=== PATIENT | female | born 1980 | race Caucasian/White ===

== ENCOUNTER 2016-08-15 00:07 | Emergency (ER) | payer MEDICARE, MEDICAID ==
[~2016-08-15 00:07] MED LIST: ABIL10TA PO; ACET80TA PO; AMBI5TAB PO; AUGM875T27 PO; BENT10CA PO; BUTA1CAP PO; CARA1TAB2 PO; CIPR500S PO; CIPR500T89 PO; DULO1CAP2 PO; DULO1CAP3 PO; FENTANYL PATCH; FIOR1CAP PO; FLAG500T PO; FLEX10TA2 PO; FOLI1TAB2 PO; HYDR100C PO; LOVE1INJ SC; MAPA325T2 PO; METO10TA2 PO; METO5TAB2 PO; MORP100T40 PO; MORP15TA2 PO; MORP2SY IV; MORP30SU RE; MORP30TA34 PO; MORP30TA4 PO; MS C100T PO; MULT1TAB8 PO; NEUR100C OR; ONDA1TAB15 PO; ONDA4INJ48 IV; ONDA4TAB6 PO; PANT40TA2 PO; PEG1POW PO; PERC5TAB6 PO; PRAMIPEXOLE PO; PREV15CA PO; PROM-190 PO; PROM25AM IV; PROM50TA2 PO; PROT1TAB2 PO; REGL5TAB2 PO; REQU0.5T PO; ROPI0.25 PO; SERT-138 PO; SERT-141 PO; SUCR1SS PO; SYNT175T PO; TIZA4CAP3 PO; TRAZ50TA4 PO; VITA-193 PO; VITAD1000T PO; VITMTA PO; XANA1TAB2 PO; ZANA4TAB PO; ZOFR20TA PO; ZOFR8TAB PO; ZOLO50TA PO; ZOLP10TA2 PO; [UNRECOGNIZED DRUG - CODE] PO; [UNRECOGNIZED DRUG - CODE] PO; [UNRECOGNIZED DRUG - CODE] PO; [UNRECOGNIZED DRUG - OTHER] PO
[2016-08-15] MEDS ORDERED: IPRATROPIUM 0.5MG/ALBUTEROL 2.5MG INH SOL UD 3ML (DUONEB)(J7620) As Ordered ONE (01:13)
[2016-08-15 03:06] LABS: BASO % 0.7 % (0.0-1.0); EOS # 0.1 K/mm3 (0.0-0.50); EOS % 1.9 % (0.0-3.0); LARGE UNSTAINED CELL # 0.1 K/mm3 (0.0-0.4); LARGE UNSTAINED CELL % 2.2 % (0.0-4.0); LYMPH # 2.4 K/mm3 (1.5-4.5); LYMPH % 39.1 % (24.0-44.0); MEAN CORPUSCULAR HGB CONC 32.2 g/dl (32.0-36.5); MEAN CORPUSCULAR VOLUME 83.7 fl (80.0-96.0); MONO # 0.3 K/mm3 (0.0-0.8); MONO % 4.6 % (0.0-5.0); NEUTROPHILS # 3.2 K/mm3 (1.8-7.7); NEUTROPHILS % 51.4 % (36.0-66.0); PLATELET COUNT, AUTOMATED 350 k/mm3 (150-450); RED CELL DISTRIBUTION WIDTH 15.1 % (11.5-14.5); WHITE BLOOD COUNT 6.1 K/mm3 (4.0-10.0)
[2016-08-15 03:22] LABS: ANION GAP 11 MEQ/L (8-16); BLOOD UREA NITROGEN 15 MG/DL (7-18); CALCIUM LEVEL 8.5 MG/DL (8.5-10.1); CARBON DIOXIDE LEVEL 25 MEQ/L (21-32); CHLORIDE LEVEL 107 MEQ/L (98-107); CREATININE FOR GFR 0.73 MG/DL (0.55-1.02); GLOMERULAR FILTRATION RATE > 60.0 (>60); GLUCOSE, FASTING 96 MG/DL (70-105); POTASSIUM SERUM 3.7 MEQ/L (3.5-5.1); SODIUM LEVEL 143 MEQ/L (136-145)
[2016-08-15] MEDS ORDERED: KETOROLAC 30 MG/ML VIAL (J1885) As Ordered ONE (04:32)
[2016-08-15] MEDS ORDERED: predniSONE 20 MG TAB As Ordered ONE (05:18)
[2016-08-15] MEDS ORDERED: ALBUTEROL 90 MCG/ACT 8GM HFA INHALER As Ordered ONE (05:18)
--- NOTE | 2016-08-15 05:45 | EDDOCDS ---
Physician Documentation [facility] Name: Ada Ayoub Age: 36 yrs Sex: Female : 1980 Arrival Date: 08/15/2016 Time: 00:07 Bed 8 Private MD: Disposition: 08/15/16 05:11 Discharged to Home/Self Care. Impression: Acute bronchitis. - Condition is Stable. - Discharge Instructions: Acute Bronchitis, Viral Infections. - Prescriptions for Zithromax Z- Sav 250 mg Oral Tablet - take 1 tablet by ORAL route as directed for 5 days Day 1- take two tablets once. Day 2, 3, 4 , 5 take one tablet once daily.; 6 tablet. Prednisone 20 mg Oral Tablet - take 2 tablet by ORAL route once daily for 5 days; 10 tablet. benzonatate 200 mg Oral Capsule - take 1 capsule by ORAL route 3 times per day As needed; 30 capsule. - Medication Reconciliation, Local Pharmacy Hours form. - Follow up: Private Physician; When: 4 - 5 days; Reason: Continuance of care. - Problem is an acute exacerbation. - Symptoms have improved. Historical: - Allergies: Maxalt ("made me go unconscious"); Amitriptyline; Bees; - Home Meds: 1. Carafate 1 gram Oral tab as needed 2. duloxetine 60 mg Oral cpDR 1 cap once daily - PMHx: Anxiety; Chronic Back pain; Depression; PTSD; - PSHx: recent stomach surgery to repair hole from gastric bypass surgery; Gastric Bypass; Appendectomy; Cholecystectomy; back surgery x2; left knee surgery; ; Hysterectomy; - Social history: Smoking status: Patient states was never smoker of tobacco. No barriers to communication noted, The patient speaks fluent French. - Family history: Not pertinent. - : The pt / caregiver states he / she is not on anticoagulants. Home medication list is obtained from the patient. - Exposure Risk Screening:: None identified. PSYCHIATRIST: 08/15 00:23 3, Living 2, LMP N/A - Hysterectomy mcp Vital Signs: 00:23 BP 130 / 81; Pulse 140; Resp 28; Temp 98.9(O); Pulse Ox 100% on R/A; Weight 70.31 kg / mcp 155.01 lbs; Height 5 ft. 8 in. (172.72 cm); Pain 8/10; 00:39 BP 107 / 72 (auto/); ko2 00:40 Pulse 100 MON; Pulse Ox 100% ; ko2 00:48 Pulse 94 MON; Pulse Ox 97% ; ko2 00:49 BP 104 / 72 (auto/); ko2 00:59 BP 114 / 81 (auto/); ko2 00:59 Pulse 102 MON; Pulse Ox 97% ; ko2 05:25 BP 122 / 62; Pulse 88; Resp 20; Temp 99.0(O); Pulse Ox 98% on R/A; Pain 0/10; cp1 00:23 Body Mass Index 23.57 (70.31 kg, 172.72 cm) mcp MDM: 00:31 ECG WITH READING ER PHYS+CARDIAG ordered. EDMS 00:47 -Blood Culture (Adults Only), peripheral from different site, or from device/port/PICC mm11 etc. if present ordered. 00:47 Potato Chip Sacking Machine Operator/Pulse Ox/q 15 min VS ordered. mm11 00:47 Oxygen at 4L/Min NC or Home dosage ordered. mm11 00:47 Rhythm Strip to chart ordered. mm11 00:47 Albuterol-Ipratropium 3 ml Inhalation once ordered. mm11 00:47 Call Respiratory ordered. mm11 00:48 Call Respiratory complete. ko2 00:48 Basic Metabolic Profile Ordered. EDMS 00:48 CBC with Diff Ordered. EDMS 00:48 D-Dimer Quant Ordered. EDMS 00:48 -Blood Culture Ordered. EDMS 00:48 -Influenza A&B Rapid Antigen - Nose Ordered. EDMS 00:48 Chest, 2 View (pa\\E\\lat) Ordered. EDMS 00:58 -Blood Culture (Adults Only), peripheral from different site, or from device/port/PICC ml3 etc. if present complete. 00:59 BLOOD CULTURES Ordered. EDMS 01:10 Financial registration complete. slh 02:18 -Influenza A&B Rapid Antigen - Nose Reviewed. mm11 03:31 CBC with Diff Reviewed. mm11 03:31 Basic Metabolic Profile Reviewed. mm11 03:31 D-Dimer Quant Reviewed. mm11 03:58 [facility] [place] Payment Agreement was scanned into [employer] and attached to record. slh 04:30 ketorolac 60 mg IM once ordered. mm11 05:10 Ventolin Inhaler 2 puffs Inhalation once; q 4 hours prn sob, dispense home ordered. mm11 05:10 MDI teaching with Spacer ordered. mm11 05:10 predniSONE 40 mg PO once; administer with food or milk ordered. mm11 Administered Medications: 01:14 Drug: Albuterol-Ipratropium 3 ml [ipratropium-albuterol 0.5 mg-3 mg(2.5 mg base)/3 mL bb3 nebulization soln (3 mL)] Route: Inhalation; 01:29 Follow up: increased throughout. Lung sounds clear/diminished. Pt had scant amount of bb3 thick dark yellow green sputum spontaneously expectorated during neb tx. Pt denies SOB past baseline at rest. 04:31 CANCELLED (unable to obtain IV): ketorolac 30 mg IVP once ko2 04:31 CANCELLED (unable to obtain IV): NS 0.9% 1000 ml IV at bolus once ko2 04:38 Drug: ketorolac 60 mg [ketorolac 30 mg/mL (1 mL) injection solution (2 mL)] Route: IM; ko2 Site: right gluteus; 05:25 Drug: Ventolin 2 puffs [Ventolin HFA 90 mcg/actuation aerosol inhaler (2 puffs)] Route: cp1 Inhalation; 05:31 Follow up: pt understands and correctly demonstrates proper use of MDI/spacer from bb3 start to finish without error 05:25 Drug: predniSONE 40 mg [prednisone 20 mg tablet (2 tabs)] Route: PO; cp1 Signatures: Dispatcher [employer] Effie Whaley RN RN mcp Lopresti, Mary-Elizabeth, Boiler Operator Unit ml3 Ba Tilley DO DO mm11 Rachel Martinez,SURGERY CENTER ADMINISTRATOR SURGERY CENTER ADMINISTRATOR cp1 Chelsey Fleming RN RN ko2 Kim Gandara Brad bb3 The chart was reviewed and I authenticate all verbal orders and agree with the evaluation and treatment provided.Corrections: (The following items were deleted from the chart) 04:31 00:47 IV Saline Lock ordered. mm11 ko2 04:31 00:47 ketorolac 30 mg IVP once ordered. mm11 ko2 04:31 00:47 NS 0.9% 1000 ml IV at bolus once ordered. mm11 ko2 Attachments: 03:58 [facility] Payment Agreement [facility] MTDD
--- NOTE | 2016-08-15 05:45 | EDDOCDS ---
Nurse's Notes [facility] Name: Ada Ayoub Age: 36 yrs Sex: Female : 1980 Arrival Date: 08/15/2016 Time: 00:07 Bed 8 Private MD: Diagnosis: Acute bronchitis Presentation: 08/15 00:18 Presenting complaint: Patient states: Sick for over a week--started with cold [facility] symptoms--sinus issues, lungs getting worse, short of breath at rest. Also had stomach surgery in June and has hard spot on side of incision. Also has chest pain and pressure. Adult Sepsis Screening: The patient does not have new or worsening altered mentation. Patient has a respiratory rate of greater than or equal to 22 (1 point). Systolic blood pressure is greater than 100. Patient has a qSOFA score of 0- Negative Sepsis Screen. Suicide/Homicide risk assessment- the patient denies having any suicidal and/or homicidal ideations and does not present with any other emotional, behavioral or mental health complaints. Status: Patient is not a immigration services officer or dependent. Transition of care: patient was not received from another setting of care. 00:18 Acuity: H[place]IGH Level 3 [facility] 00:18 Method Of Arrival: Walkin/Carried/Asstd [facility] Triage Assessment: 00:24 General: Appears ill, uncomfortable, Behavior is cooperative. Pain: Location: chest mcp Pain currently is 8 out of 10 on a pain scale. HIV screening NA for this visit Offered previously. Neurological: No deficits noted. Respiratory: Onset: The symptoms/episode began/occurred 5-6 days ago, Airway is patent Respiratory effort is even, labored, Reports shortness of breath at rest cough that is productive, labored breathing. Derm: Skin is pink, warm & dry. 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 Carafate 1 gram Oral tab as needed 2. duloxetine 60 mg Oral cpDR 1 cap once daily - PMHx: Anxiety; Chronic Back pain; Depression; PTSD; - PSHx: recent stomach surgery to repair hole from gastric bypass surgery; Gastric Bypass; Appendectomy; Cholecystectomy; back surgery x2; left knee surgery; ; Hysterectomy; - Social history: Smoking status: Patient states was never smoker of tobacco. No barriers to communication noted, The patient speaks fluent Syriac. - Family history: Not pertinent. - : The pt / caregiver states he / she is not on anticoagulants. Home medication list is obtained from the patient. - Exposure Risk Screening:: None identified. Screenin:30 Screening information is obtained from the patient. Fall risk: No risks identified. ko2 Assistance ADL's: requires no assistance with activities of daily living. Abuse/DV Screen: The patient / caregiver reports he/she is: not in a situation that causes fear, pain or injury. Nutritional screening: No deficits noted. Advance Directives: Currently, there is no health care proxy. There is no active DNR order. There is no living will. There is no Power of Program Manager Rn. home support is adequate. Assessment: 01:28 General: Appears in no apparent distress, Behavior is appropriate for age, cooperative. ko2 Neurological: Level of Consciousness is awake, alert. Cardiovascular: Heart tones S1 S2 present Rhythm is regular Chest pain is denied. Respiratory: Airway is patent Respiratory effort is even, unlabored, Breath sounds with wheezes bilaterally. Derm: Skin is normal. Musculoskeletal: Range of motion intact in all extremities. 02:33 General: Appears in no apparent distress, Behavior is appropriate for age, cooperative. ko2 Neurological: Level of Consciousness is awake, alert. Respiratory: Airway is patent Respiratory effort is even, unlabored. Derm: Skin is normal. 02:34 General: Dr Tilley notified that unable to get IV on pt with charge nurse, this nurse ko2 and nursing steel post installer supervisor attmepting. Labs called to get lab work. 03:31 General: Appears in no apparent distress, Behavior is appropriate for age, cooperative. ko2 Neurological: Level of Consciousness is awake, alert. Cardiovascular: Rhythm is regular. Respiratory: Airway is patent Respiratory effort is even, unlabored. Derm: Skin is normal. Vital Signs: 00:23 BP 130 / 81; Pulse 140; Resp 28; Temp 98.9(O); Pulse Ox 100% on R/A; Weight 70.31 kg; mcp Height 5 ft. 8 in. (172.72 cm); Pain 8/10; 00:39 BP 107 / 72 (auto/); ko2 00:40 Pulse 100 MON; Pulse Ox 100% ; ko2 00:48 Pulse 94 MON; Pulse Ox 97% ; ko2 00:49 BP 104 / 72 (auto/); ko2 00:59 BP 114 / 81 (auto/); ko2 00:59 Pulse 102 MON; Pulse Ox 97% ; ko2 05:25 BP 122 / 62; Pulse 88; Resp 20; Temp 99.0(O); Pulse Ox 98% on R/A; Pain 0/10; cp1 00:23 Body Mass Index 23.57 (70.31 kg, 172.72 cm) [facility] Vitals: 00:23 Log In Time: August 15, 2016 at 00:08. [facility] ED Course: 00:08 Patient visited by Beti Dykes Reg. hs2 00:08 Patient moved to Waiting hs2 00:20 Triage Initiated [facility] 00:25 Patient visited by Effie Buckley RN. [facility] 00:26 Chelsey Fleming RN is Primary Nurse. [facility] 00:26 Patient moved to 8 [facility] 00:29 Ba Tilley DO is Attending Physician. mm11 00:29 Patient visited by Ba Tilley DO. mm11 00:41 EKG done. (by ED staff). Reviewed by Ba Tilley DO. ls3 00:46 Patient visited by Ba Tilley DO. mm11 01:15 Patient visited by Jacques Belle PCA. kb5 02:06 Patient visited by Chelsey Fleming RN. ko2 02:35 The patient / caregiver is instructed regarding the plan of care and ED course. ko2 03:00 Patient visited by Chelsey Fleming RN. ko2 03:58 [facility] Payment Agreement was scanned into [employer] and attached to record. slh 04:06 Patient visited by Chelsey Fleming RN. ko2 04:41 Patient visited by Chelsey Fleming RN. ko2 05:26 No IV's were initiated during this patient's visit. No procedures done that require cp1 assistance. Administered Medications: 01:14 Drug: Albuterol-Ipratropium 3 ml [ipratropium-albuterol 0.5 mg-3 mg(2.5 mg base)/3 mL bb3 nebulization soln (3 mL)] Route: Inhalation; 01:29 Follow up: increased throughout. Lung sounds clear/diminished. Pt had scant amount of bb3 thick dark yellow green sputum spontaneously expectorated during neb tx. Pt denies SOB past baseline at rest. 04:31 CANCELLED (unable to obtain IV): ketorolac 30 mg IVP once ko2 04:31 CANCELLED (unable to obtain IV): NS 0.9% 1000 ml IV at bolus once ko2 04:38 Drug: ketorolac 60 mg [ketorolac 30 mg/mL (1 mL) injection solution (2 mL)] Route: IM; ko2 Site: right gluteus; 05:25 Drug: Ventolin 2 puffs [Ventolin HFA 90 mcg/actuation aerosol inhaler (2 puffs)] Route: cp1 Inhalation; 05:31 Follow up: pt understands and correctly demonstrates proper use of MDI/spacer from bb3 start to finish without error 05:25 Drug: predniSONE 40 mg [prednisone 20 mg tablet (2 tabs)] Route: PO; cp1 Intake: RT: 01:12 Oxygen is room air. Respiratory: sp02 99% RA. Respiratory: Respiratory effort is even, bb3 labored, Respiratory pattern is regular symmetrical, tachypnea coarse wheezes and scattered rhonchi noted in bilateral posterior lobes. Reports shortness of breath at rest on exertion cough that is productive. 01:14 Initial Med Neb Given as ordered Patient was instructed and evaluated on procedure. bb3 01:28 Respiratory: increased throughout. Lung sounds clear/diminished. Pt had scant amount of bb3 thick dark yellow green sputum spontaneously expectorated during neb tx. Pt denies SOB past baseline at rest. 05:32 Initial MDI Given. Patient was instructed and evaluated on procedure Spacer used Number bb3 of puffs given: 2. 05:32 Patient Education: pt understands and correctly demonstrates proper use of MDI/spacer bb3 from start to finish without error. Order Results: Lab Order: Basic Metabolic Profile; SPEC'M 08/15/16 02:53 Test: GLUCOSE, FASTING; Value: 96; Range: 70-105; Units: MG/DL; Status: F Test: BLOOD UREA NITROGEN; Value: 15; Range: 7-18; Units: MG/DL; Status: F Test: CREATININE FOR GFR; Value: 0.73; Range: 0.55-1.02; Units: MG/DL; Status: F Test: GLOMERULAR FILTRATION RATE; Value: > 60.0; Range: >60; Status: F Test: SODIUM LEVEL; Value: 143; Range: 136-145; Units: MEQ/L; Status: F Test: POTASSIUM SERUM; Value: 3.7; Range: 3.5-5.1; Units: MEQ/L; Status: F Test: CHLORIDE LEVEL; Value: 107; Range: 98-107; Units: MEQ/L; Status: F Test: CARBON DIOXIDE LEVEL; Value: 25; Range: 21-32; Units: MEQ/L; Status: F Test: ANION GAP; Value: 11; Range: 8-16; Units: MEQ/L; Status: F Test: CALCIUM LEVEL; Value: 8.5; Range: 8.5-10.1; Units: MG/DL; Status: F Test Note: ; Units are mL/min/1.73 m2 Chronic Kidney Disease Staging per NKF: Stage I & II GFR >=60 Normal to Mildly Decreased Stage III GFR 30-59 Moderately Decreased Stage IV GFR 15-29 Severely Decreased Stage V GFR <15 Very Little GFR Left ESRD GFR <15 on FRUIT AND VEGETABLE FACTORY WORKER Lab Order: CBC with Diff; SPEC'M 08/15/16 02:53 Test: WHITE BLOOD COUNT; Value: 6.1; Range: 4.0-10.0; Units: K/mm3; Status: F Test: RED BLOOD COUNT; Value: 4.35; Range: 4.00-5.40; Units: M/mm3; Status: F Test: HEMOGLOBIN; Value: 11.8; Range: 12.0-16.0; Abnormal: Below low normal; Units: g/dl; Status: F Test: HEMATOCRIT; Value: 36.4; Range: 36.0-47.0; Units: %; Status: F Test: MEAN CORPUSCULAR VOLUME; Value: 83.7; Range: 80.0-96.0; Units: fl; Status: F Test: MEAN CORPUSCULAR HEMOGLOBIN; Value: 27.0; Range: 27.0-33.0; Units: pg; Status: F Test: MEAN CORPUSCULAR HGB CONC; Value: 32.2; Range: 32.0-36.5; Units: g/dl; Status: F Test: RED CELL DISTRIBUTION WIDTH; Value: 15.1; Range: 11.5-14.5; Abnormal: Above high normal; Units: %; Status: F Test: PLATELET COUNT, AUTOMATED; Value: 350; Range: 150-450; Units: k/mm3; Status: F Test: NEUTROPHILS %; Value: 51.4; Range: 36.0-66.0; Units: %; Status: F Test: LYMPH %; Value: 39.1; Range: 24.0-44.0; Units: %; Status: F Test: MONO %; Value: 4.6; Range: 0.0-5.0; Units: %; Status: F Test: EOS %; Value: 1.9; Range: 0.0-3.0; Units: %; Status: F Test: BASO %; Value: 0.7; Range: 0.0-1.0; Units: %; Status: F Test: LARGE UNSTAINED CELL %; Value: 2.2; Range: 0.0-4.0; Units: %; Status: F Test: NEUTROPHILS #; Value: 3.2; Range: 1.8-7.7; Units: K/mm3; Status: F Test: LYMPH #; Value: 2.4; Range: 1.5-4.5; Units: K/mm3; Status: F Test: MONO #; Value: 0.3; Range: 0.0-0.8; Units: K/mm3; Status: F Test: EOS #; Value: 0.1; Range: 0.0-0.50; Units: K/mm3; Status: F Test: BASO #; Value: 0.0; Range: 0.0-0.2; Units: K/mm3; Status: F Test: LARGE UNSTAINED CELL #; Value: 0.1; Range: 0.0-0.4; Units: K/mm3; Status: F Lab Order: D-Dimer Quant; SPEC'M 08/15/16 02:53 Test: D-DIMER QUANT; Value: 270.7; Range: <500; Units: ng/ml; Status: F Lab Order: -Influenza A&B Rapid Antigen - Nose; SPEC'M 08/15/16 01:04 Test: INFLUENZA A RAPID SCR by ICA; Value: INFLUENZA A RESULTS NEGATIVE; Status: F Test: INFLUENZA A RAPID SCR by ICA; Value: Comments:; Status: F Test: INFLUENZA B RAPID SCR by ICA; Value: INFLUENZA B RESULTS NEGATIVE; Status: F Test Note: ; The Influenza test is a direct rapid immunoassay for the qualitative detection of Influenza viral antigen. Cell culture (Viral Culture) testing should be considered to confirm NEGATIVE results and to assist in detecting other viruses that can provide similar clinical symptoms. Please contact the lab within 24 hours ([phone] if confirmatory testing is desired. Outcome: 05:11 Discharge ordered by Provider. mm11 05:26 Discharge Assessment: Patient awake, alert and oriented x 3. No cognitive and/or cp1 functional deficits noted. Patient verbalized understanding of disposition instructions. patient administered narcotics - no. The following High Risk Discharge criteria are identified: None. Discharged to home ambulatory, with significant other. Condition: stable. Discharge instructions given to patient, Instructed on discharge instructions, follow up and referral plans. medication usage, Demonstrated understanding of instructions, medications, Pt was receptive of discharge instructions/ teaching. Prescriptions given X 3. No special radiology studies were completed. Property sent home with patient. :Personal belongings accompany Pt. 05:44 Patient left the ED. ml3 Signatures: Effie Buckley, RN RN [facility] Johanna Lopez, Auto Fleet Manager Unit ml3 Jacques Belle, MMA FIGHTER MMA FIGHTER kb5 Ba Tilley, DO mm11 Osvaldo Myles bb3 Rachel Martinez,ELECTRONIC DRAFTER ELECTRONIC DRAFTER cp1 Chelsey Fleming RN RN ko2 Hook, Sandra slh Schiff, Lauren, MMA FIGHTER MMA FIGHTER ls3 Beti Dykes, Reg Reg hs2 Corrections: (The following items were deleted from the chart) 01:27 01:12 Respiratory: Respiratory effort is even, labored, Respiratory pattern is regular bb3 symmetrical, tachypnea coarse wheezes and scattered rhonchi noted in bilateral posterior lobes. Reports shortness of breath at rest on exertion cough that is productive bb3 MTDD
--- NOTE | 2016-08-15 08:37 | REP ---
Chest x-ray: Two views. History: Cough. Comparison study: June 20, 2016. Findings: The lungs are symmetrically aerated and free of infiltrate. The pleural angles are sharp. Cardiomediastinal silhouette is unremarkable. No bony abnormality is seen. There is a small rounded metallic density in the presternal skin unchanged from comparison view consistent with dermal jewelry. An azygos lobe is noted incidentally. Impression: No active disease. Signed by Dru Dumont MD 08/15/2016 08:48 A
--- NOTE | 2016-08-15 08:45 | ECGEPIP ---
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
--- NOTE | 2016-08-18 10:35 | EDDOCDS ---
Physician Documentation [employer] Name: Ada Ayoub Age: 36 yrs Sex: Female : 1980 Arrival Date: 08/15/2016 Time: 00:07 Bed 8 Private MD: Disposition: 08/15/16 05:11 Discharged to Home/Self Care. Impression: Acute bronchitis. - Condition is Stable. - Discharge Instructions: Acute Bronchitis, Viral Infections. - Prescriptions for Zithromax Z- Sav 250 mg Oral Tablet - take 1 tablet by ORAL route as directed for 5 days Day 1- take two tablets once. Day 2, 3, 4 , 5 take one tablet once daily.; 6 tablet. Prednisone 20 mg Oral Tablet - take 2 tablet by ORAL route once daily for 5 days; 10 tablet. benzonatate 200 mg Oral Capsule - take 1 capsule by ORAL route 3 times per day As needed; 30 capsule. - Medication Reconciliation, Local Pharmacy Hours form. - Follow up: Private Physician; When: 4 - 5 days; Reason: Continuance of care. - Problem is an acute exacerbation. - Symptoms have improved. Historical: - Allergies: Maxalt ("made me go unconscious"); Amitriptyline; Bees; - Home Meds: 1. Carafate 1 gram Oral tab as needed 2. duloxetine 60 mg Oral cpDR 1 cap once daily - PMHx: Anxiety; Chronic Back pain; Depression; PTSD; - PSHx: recent stomach surgery to repair hole from gastric bypass surgery; Gastric Bypass; Appendectomy; Cholecystectomy; back surgery x2; left knee surgery; ; Hysterectomy; - Social history: Smoking status: Patient states was never smoker of tobacco. No barriers to communication noted, The patient speaks fluent Kazakh. - Family history: Not pertinent. - : The pt / caregiver states he / she is not on anticoagulants. Home medication list is obtained from the patient. - Exposure Risk Screening:: None identified. MOTHER TESTER: 08/15 00:23 3, Living 2, LMP N/A - Hysterectomy mcp Vital Signs: 00:23 BP 130 / 81; Pulse 140; Resp 28; Temp 98.9(O); Pulse Ox 100% on R/A; Weight 70.31 kg / mcp 155.01 lbs; Height 5 ft. 8 in. (172.72 cm); Pain 8/10; 00:39 BP 107 / 72 (auto/); ko2 00:40 Pulse 100 MON; Pulse Ox 100% ; ko2 00:48 Pulse 94 MON; Pulse Ox 97% ; ko2 00:49 BP 104 / 72 (auto/); ko2 00:59 BP 114 / 81 (auto/); ko2 00:59 Pulse 102 MON; Pulse Ox 97% ; ko2 05:25 BP 122 / 62; Pulse 88; Resp 20; Temp 99.0(O); Pulse Ox 98% on R/A; Pain 0/10; cp1 00:23 Body Mass Index 23.57 (70.31 kg, 172.72 cm) mcp MDM: 00:31 ECG WITH READING ER PHYS+CARDIAG ordered. EDMS 00:47 -Blood Culture (Adults Only), peripheral from different site, or from device/port/PICC mm11 etc. if present ordered. 00:47 Telephone Supervisor/Pulse Ox/q 15 min VS ordered. mm11 00:47 Oxygen at 4L/Min NC or Home dosage ordered. mm11 00:47 Rhythm Strip to chart ordered. mm11 00:47 Albuterol-Ipratropium 3 ml Inhalation once ordered. mm11 00:47 Call Respiratory ordered. mm11 00:48 Call Respiratory complete. ko2 00:48 Basic Metabolic Profile Ordered. EDMS 00:48 CBC with Diff Ordered. EDMS 00:48 D-Dimer Quant Ordered. EDMS 00:48 -Blood Culture Ordered. EDMS 00:48 -Influenza A&B Rapid Antigen - Nose Ordered. EDMS 00:48 Chest, 2 View (pa\\E\\lat) Ordered. EDMS 00:58 -Blood Culture (Adults Only), peripheral from different site, or from device/port/PICC ml3 etc. if present complete. 00:59 BLOOD CULTURES Ordered. EDMS 01:10 Financial registration complete. slh 02:18 -Influenza A&B Rapid Antigen - Nose Reviewed. mm11 03:31 CBC with Diff Reviewed. mm11 03:31 Basic Metabolic Profile Reviewed. mm11 03:31 D-Dimer Quant Reviewed. mm11 03:58 [facility] Payment Agreement was scanned into [employer] and attached to record. slh 04:30 ketorolac 60 mg IM once ordered. mm11 05:10 Ventolin Inhaler 2 puffs Inhalation once; q 4 hours prn sob, dispense home ordered. mm11 05:10 MDI teaching with Spacer ordered. mm11 05:10 predniSONE 40 mg PO once; administer with food or milk ordered. mm11 13:30 T-Sheet-- Draft Copy was scanned into [employer] and attached to record. gb 13:31 ECG/EKG was scanned into [employer] and attached to record. gb Administered Medications: 01:14 Drug: Albuterol-Ipratropium 3 ml [ipratropium-albuterol 0.5 mg-3 mg(2.5 mg base)/3 mL bb3 nebulization soln (3 mL)] Route: Inhalation; 01:29 Follow up: increased throughout. Lung sounds clear/diminished. Pt had scant amount of bb3 thick dark yellow green sputum spontaneously expectorated during neb tx. Pt denies SOB past baseline at rest. 04:31 CANCELLED (unable to obtain IV): ketorolac 30 mg IVP once ko2 04:31 CANCELLED (unable to obtain IV): NS 0.9% 1000 ml IV at bolus once ko2 04:38 Drug: ketorolac 60 mg [ketorolac 30 mg/mL (1 mL) injection solution (2 mL)] Route: IM; ko2 Site: right gluteus; 05:25 Drug: Ventolin 2 puffs [Ventolin HFA 90 mcg/actuation aerosol inhaler (2 puffs)] Route: cp1 Inhalation; 05:31 Follow up: pt understands and correctly demonstrates proper use of MDI/spacer from bb3 start to finish without error 05:25 Drug: predniSONE 40 mg [prednisone 20 mg tablet (2 tabs)] Route: PO; cp1 Signatures: Dispatcher [employer] Effie Whaley RN RN Carolyn Shultz, Reg Reg Johanna Yoo, Medical Sonographer Unit ml3 Ba Tilley DO DO mm11 Rachel Martinez LPN LPN cp1 Chelsey Fleming RN RN juventino2 Kim Gandara Brad bb3 The chart was reviewed and I authenticate all verbal orders and agree with the evaluation and treatment provided.Corrections: (The following items were deleted from the chart) 04:31 00:47 IV Saline Lock ordered. mm11 ko2 04:31 00:47 ketorolac 30 mg IVP once ordered. mm11 ko2 04: 00:47 NS 0.9% 1000 ml IV at bolus once ordered. mm11 ko2 Attachments: 03:58 [facility] Payment Agreement [facility] 13:30 T-Sheet-- Draft Copy gb 13:31 ECG/EKG gb Chart Complete MTDD
--- NOTE | 2016-08-18 10:35 | EDDOCDS ---
Nurse's Notes [facility] Name: Sienna Foster Age: 36 yrs Sex: Female : 1980 Arrival Date: 08/15/2016 Time: 00:07 Bed 8 Private MD: Diagnosis: Acute bronchitis Presentation: 08/15 00:18 Presenting complaint: Patient states: Sick for over a week--started with cold [facility] symptoms--sinus issues, lungs getting worse, short of breath at rest. Also had stomach surgery in June and has hard spot on side of incision. Also has chest pain and pressure. Adult Sepsis Screening: The patient does not have new or worsening altered mentation. Patient has a respiratory rate of greater than or equal to 22 (1 point). Systolic blood pressure is greater than 100. Patient has a qSOFA score of 0- Negative Sepsis Screen. Suicide/Homicide risk assessment- the patient denies having any suicidal and/or homicidal ideations and does not present with any other emotional, behavioral or mental health complaints. 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 Transition of care: patient was not received from another setting of care. 00:18 Acuity: [place] Level [address] [facility] 00:18 Method Of Arrival: Walkin/Carried/Asstd [facility] Triage Assessment: 00:24 General: Appears ill, uncomfortable, Behavior is cooperative. Pain: Location: chest mcp Pain currently is 8 out of 10 on a pain scale. HIV screening NA for this visit Offered previously. Neurological: No deficits noted. Respiratory: Onset: The symptoms/episode began/occurred 5-6 days ago, Airway is patent Respiratory effort is even, labored, Reports shortness of breath at rest cough that is productive, labored breathing. Derm: Skin is pink, warm & dry. 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 Historical: - Allergies: Maxalt ("made me go unconscious"); Amitriptyline; Bees; - Home Meds: 1. Carafate 1 gram Oral tab as needed 2. duloxetine 60 mg Oral cpDR 1 cap once daily - PMHx: Anxiety; Chronic Back pain; Depression; PTSD; - PSHx: recent stomach surgery to repair hole from gastric bypass surgery; Gastric Bypass; Appendectomy; Cholecystectomy; back surgery x2; left knee surgery; ; Hysterectomy; - Social history: Smoking status: Patient states was never smoker of tobacco. No barriers to communication noted, The patient speaks fluent Romansh. - Family history: Not pertinent. - : The pt / caregiver states he / she is not on anticoagulants. Home medication list is obtained from the patient. - Exposure Risk Screening:: None identified. Screenin:30 Screening information is obtained from the patient. Fall risk: No risks identified. ko2 Assistance ADL's: requires no assistance with activities of daily living. Abuse/DV Screen: The patient / caregiver reports he/she is: not in a situation that causes fear, pain or injury. Nutritional screening: No deficits noted. Advance Directives: Currently, there is no health care proxy. There is no active DNR order. There is no living will. There is no Power of Watershed Coordinator. home support is adequate. Assessment: 01:28 General: Appears in no apparent distress, Behavior is appropriate for age, cooperative. ko2 Neurological: Level of Consciousness is awake, alert. Cardiovascular: Heart tones S1 S2 present Rhythm is regular Chest pain is denied. Respiratory: Airway is patent Respiratory effort is even, unlabored, Breath sounds with wheezes bilaterally. Derm: Skin is normal. Musculoskeletal: Range of motion intact in all extremities. 02:33 General: Appears in no apparent distress, Behavior is appropriate for age, cooperative. ko2 Neurological: Level of Consciousness is awake, alert. Respiratory: Airway is patent Respiratory effort is even, unlabored. Derm: Skin is normal. 02:34 General: Dr Tilley notified that unable to get IV on pt with charge nurse, this nurse ko2 and nursing paperhanger supervisor attmepting. Labs called to get lab work. 03:31 General: Appears in no apparent distress, Behavior is appropriate for age, cooperative. ko2 Neurological: Level of Consciousness is awake, alert. Cardiovascular: Rhythm is regular. Respiratory: Airway is patent Respiratory effort is even, unlabored. Derm: Skin is normal. Vital Signs: 00:23 BP 130 / 81; Pulse 140; Resp 28; Temp 98.9(O); Pulse Ox 100% on R/A; Weight 70.31 kg; mcp Height 5 ft. 8 in. (172.72 cm); Pain 8/10; 00:39 BP 107 / 72 (auto/); ko2 00:40 Pulse 100 MON; Pulse Ox 100% ; ko2 00:48 Pulse 94 MON; Pulse Ox 97% ; ko2 00:49 BP 104 / 72 (auto/); ko2 00:59 BP 114 / 81 (auto/); ko2 00:59 Pulse 102 MON; Pulse Ox 97% ; ko2 05:25 BP 122 / 62; Pulse 88; Resp 20; Temp 99.0(O); Pulse Ox 98% on R/A; Pain 0/10; cp1 00:23 Body Mass Index 23.57 (70.31 kg, 172.72 cm) [facility] Vitals: 00:23 Log In Time: August 15, 2016 at 00:[address] [facility] ED Course: 00:08 Patient visited by Beti Dykes Reg. hs2 00:08 Patient moved to Waiting hs2 00:[address] [facility] 00:25 Patient visited by Effie Buckley RN. [facility] 00:26 Chelsey Fleming RN is Primary Nurse. [facility] 00:26 Patient moved to 8 [facility] 00:29 Raquel Tilley DO is Attending Physician. mm11 00:29 Patient visited by Raquel Tilley DO. mm11 00:41 EKG done. (by ED staff). Reviewed by Raquel Tilley DO. ls3 00:46 Patient visited by Raquel Tilley DO. mm11 01:15 Patient visited by Jacques Belle PCA. kb5 02:06 Patient visited by Chelsey Fleming RN. ko2 02:35 The patient / caregiver is instructed regarding the plan of care and ED course. ko2 03:00 Patient visited by Chelsey Fleming RN. ko2 03:58 [facility] Payment Agreement was scanned into [employer] and attached to record. slh 04:06 Patient visited by Chelsey Fleming RN. ko2 04:41 Patient visited by Chelsey Fleming RN. ko2 05:26 No IV's were initiated during this patient's visit. No procedures done that require cp1 assistance. 08:42 Chest, 2 View (pa\\E\\lat) Returned. EDMS 09:12 EKG-ADULT Returned. EDMS 13:30 T-Sheet-- Draft Copy was scanned into [employer] and attached to record. gb 13:31 ECG/EKG was scanned into [employer] and attached to record. gb Administered Medications: 01:14 Drug: Albuterol-Ipratropium 3 ml [ipratropium-albuterol 0.5 mg-3 mg(2.5 mg base)/3 mL bb3 nebulization soln (3 mL)] Route: Inhalation; 01:29 Follow up: increased throughout. Lung sounds clear/diminished. Pt had scant amount of bb3 thick dark yellow green sputum spontaneously expectorated during neb tx. Pt denies SOB past baseline at rest. 04:31 CANCELLED (unable to obtain IV): ketorolac 30 mg IVP once ko2 04:31 CANCELLED (unable to obtain IV): NS 0.9% 1000 ml IV at bolus once ko2 04:38 Drug: ketorolac 60 mg [ketorolac 30 mg/mL (1 mL) injection solution (2 mL)] Route: IM; ko2 Site: right gluteus; 05:25 Drug: Ventolin 2 puffs [Ventolin HFA 90 mcg/actuation aerosol inhaler (2 puffs)] Route: cp1 Inhalation; 05:31 Follow up: pt understands and correctly demonstrates proper use of MDI/spacer from bb3 start to finish without error 05:25 Drug: predniSONE 40 mg [prednisone 20 mg tablet (2 tabs)] Route: PO; cp1 Intake: RT: 01:12 Oxygen is room air. Respiratory: sp02 99% RA. Respiratory: Respiratory effort is even, bb3 labored, Respiratory pattern is regular symmetrical, tachypnea coarse wheezes and scattered rhonchi noted in bilateral posterior lobes. Reports shortness of breath at rest on exertion cough that is productive. 01:14 Initial Med Neb Given as ordered Patient was instructed and evaluated on procedure. bb3 01:28 Respiratory: increased throughout. Lung sounds clear/diminished. Pt had scant amount of bb3 thick dark yellow green sputum spontaneously expectorated during neb tx. Pt denies SOB past baseline at rest. 05:32 Initial MDI Given. Patient was instructed and evaluated on procedure Spacer used Number bb3 of puffs given: 2. 05:32 Patient Education: pt understands and correctly demonstrates proper use of MDI/spacer bb3 from start to finish without error. Order Results: Lab Order: -Blood Culture; SPEC'M 08/15/16 01:02 Test: BLOOD CULTURE; Value: No growth after 48 hours . All specimens observed; Status: F Test: BLOOD CULTURE; Value: for 5 days. Results final at that time.; Status: F Test: BLOOD CULTURE; Status: F Test: BLOOD CULTURE; Value: No growth after 24 hours . All specimens observed; Status: F Test: BLOOD CULTURE; Value: for 5 days. Results final at that time.; Status: F Test: BLOOD CULTURE; Value: No Growth after 72 hours. All specimens observed; Status: F Test: BLOOD CULTURE; Value: for 7 days. Results final at that time.; Status: F Lab Order: Basic Metabolic Profile; SPEC'M 08/15/16 02:53 Test: GLUCOSE, FASTING; Value: 96; Range: 70-105; Units: MG/DL; Status: F Test: BLOOD UREA NITROGEN; Value: 15; Range: 7-18; Units: MG/DL; Status: F Test: CREATININE FOR GFR; Value: 0.73; Range: 0.55-1.02; Units: MG/DL; Status: F Test: GLOMERULAR FILTRATION RATE; Value: > 60.0; Range: >60; Status: F Test: SODIUM LEVEL; Value: 143; Range: 136-145; Units: MEQ/L; Status: F Test: POTASSIUM SERUM; Value: 3.7; Range: 3.5-5.1; Units: MEQ/L; Status: F Test: CHLORIDE LEVEL; Value: 107; Range: 98-107; Units: MEQ/L; Status: F Test: CARBON DIOXIDE LEVEL; Value: 25; Range: 21-32; Units: MEQ/L; Status: F Test: ANION GAP; Value: 11; Range: 8-16; Units: MEQ/L; Status: F Test: CALCIUM LEVEL; Value: 8.5; Range: 8.5-10.1; Units: MG/DL; Status: F Test Note: ; Units are mL/min/1.73 m2 Chronic Kidney Disease Staging per NKF: Stage I & II GFR >=60 Normal to Mildly Decreased Stage III GFR 30-59 Moderately Decreased Stage IV GFR 15-29 Severely Decreased Stage V GFR <15 Very Little GFR Left ESRD GFR <15 on HAIR AND MAKEUP DESIGNER Lab Order: CBC with Diff; SPEC'M 08/15/16 02:53 Test: WHITE BLOOD COUNT; Value: 6.1; Range: 4.0-10.0; Units: K/mm3; Status: F Test: RED BLOOD COUNT; Value: 4.35; Range: 4.00-5.40; Units: M/mm3; Status: F Test: HEMOGLOBIN; Value: 11.8; Range: 12.0-16.0; Abnormal: Below low normal; Units: g/dl; Status: F Test: HEMATOCRIT; Value: 36.4; Range: 36.0-47.0; Units: %; Status: F Test: MEAN CORPUSCULAR VOLUME; Value: 83.7; Range: 80.0-96.0; Units: fl; Status: F Test: MEAN CORPUSCULAR HEMOGLOBIN; Value: 27.0; Range: 27.0-33.0; Units: pg; Status: F Test: MEAN CORPUSCULAR HGB CONC; Value: 32.2; Range: 32.0-36.5; Units: g/dl; Status: F Test: RED CELL DISTRIBUTION WIDTH; Value: 15.1; Range: 11.5-14.5; Abnormal: Above high normal; Units: %; Status: F Test: PLATELET COUNT, AUTOMATED; Value: 350; Range: 150-450; Units: k/mm3; Status: F Test: NEUTROPHILS %; Value: 51.4; Range: 36.0-66.0; Units: %; Status: F Test: LYMPH %; Value: 39.1; Range: 24.0-44.0; Units: %; Status: F Test: MONO %; Value: 4.6; Range: 0.0-5.0; Units: %; Status: F Test: EOS %; Value: 1.9; Range: 0.0-3.0; Units: %; Status: F Test: BASO %; Value: 0.7; Range: 0.0-1.0; Units: %; Status: F Test: LARGE UNSTAINED CELL %; Value: 2.2; Range: 0.0-4.0; Units: %; Status: F Test: NEUTROPHILS #; Value: 3.2; Range: 1.8-7.7; Units: K/mm3; Status: F Test: LYMPH #; Value: 2.4; Range: 1.5-4.5; Units: K/mm3; Status: F Test: MONO #; Value: 0.3; Range: 0.0-0.8; Units: K/mm3; Status: F Test: EOS #; Value: 0.1; Range: 0.0-0.50; Units: K/mm3; Status: F Test: BASO #; Value: 0.0; Range: 0.0-0.2; Units: K/mm3; Status: F Test: LARGE UNSTAINED CELL #; Value: 0.1; Range: 0.0-0.4; Units: K/mm3; Status: F Lab Order: D-Dimer Quant; SPEC'M 08/15/16 02:53 Test: D-DIMER QUANT; Value: 270.7; Range: <500; Units: ng/ml; Status: F Lab Order: -Influenza A&B Rapid Antigen - Nose; SPEC'M 08/15/16 01:04 Test: INFLUENZA A RAPID SCR by ICA; Value: INFLUENZA A RESULTS NEGATIVE; Status: F Test: INFLUENZA A RAPID SCR by ICA; Value: Comments:; Status: F Test: INFLUENZA B RAPID SCR by ICA; Value: INFLUENZA B RESULTS NEGATIVE; Status: F Test Note: ; The Influenza test is a direct rapid immunoassay for the qualitative detection of Influenza viral antigen. Cell culture (Viral Culture) testing should be considered to confirm NEGATIVE results and to assist in detecting other viruses that can provide similar clinical symptoms. Please contact the lab within 24 hours ([phone]) if confirmatory testing is desired. Lab Order: BLOOD CULTURES; SPEC'M 08/15/16 02:53 Test: BLOOD CULTURE; Value: No growth after 48 hours . All specimens observed; Status: F Test: BLOOD CULTURE; Value: for 5 days. Results final at that time.; Status: F Test: BLOOD CULTURE; Status: F Test: BLOOD CULTURE; Value: No growth after 24 hours . All specimens observed; Status: F Test: BLOOD CULTURE; Value: for 5 days. Results final at that time.; Status: F Test: BLOOD CULTURE; Value: No Growth after 72 hours. All specimens observed; Status: F Test: BLOOD CULTURE; Value: for 7 days. 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:; : 1980 Requested By: RAQUEL Ospina; Order Number: [id number] Reading MD: Ade Wetzel; Measurements; Intervals Sandy; Rate: 100 P: 19; OK: 137 QRS: 84; QRSD: 86 T: 55; QT: 340; QTc: 439; Interpretive Statements; SINUS TACHYCARDIA; ABNORMAL RHYTHM ECG; INCREASED RATE 03/05/14; Electronically Signed On 08-15-2016 8:45:10 EST by Ade Wetzel; Radiology Order: Chest, 2 View (pa\\E\\lat) Test: Chest, 2 View (pa\\E\\lat) REASON FOR EXAMINATION: Cough; Chest x-ray: Two views.; ; History: Cough.; ; Comparison study: June 20, 2016.; ; Findings: The lungs are symmetrically aerated and free of infiltrate. The; pleural angles are sharp. Cardiomediastinal silhouette is unremarkable. No bony; abnormality is seen. There is a small rounded metallic density in the presternal; skin unchanged from comparison view consistent with dermal jewelry. An azygos; lobe is noted incidentally.; ; Impression:; ; No active disease.; ; ; Signed by; Dru Dumont MD 08/15/2016 08:48 A; Outcome: 05:11 Discharge ordered by Provider. mm11 05:26 Discharge Assessment: Patient awake, alert and oriented x 3. No cognitive and/or cp1 functional deficits noted. Patient verbalized understanding of disposition instructions. patient administered narcotics - no. The following High Risk Discharge criteria are identified: None. Discharged to home ambulatory, with significant other. Condition: stable. Discharge instructions given to patient, Instructed on discharge instructions, follow up and referral plans. medication usage, Demonstrated understanding of instructions, medications, Pt was receptive of discharge instructions/ teaching. Prescriptions given X 3. No special radiology studies were completed. Property sent home with patient. :Personal belongings accompany Pt. 05:44 Patient left the ED. ml3 Signatures: Dispatcher [employer] Effie Whaley RN RN Carolyn Shultz, Reg Reg gb Johanna Lopez, Supervisor [employer] Unit ml3 Jacques Belle, BRUSH OR BROOM CUTTER BRUSH OR BROOM CUTTER kb5 Raquel Tilley, DO DO mm11 Osvaldo Myles bb3 Rachel Martinez,BLUEPRINT DUPLICATOR BLUEPRINT DUPLICATOR cp1 Chelsey Fleming,GELY RN ko2 Kim Gandara slh Audrey Spain, BRUSH OR BROOM CUTTER BRUSH OR BROOM CUTTER ls3 Beti Dykes, Reg Reg hs2 Corrections: (The following items were deleted from the chart) 01:27 01:12 Respiratory: Respiratory effort is even, labored, Respiratory pattern is regular bb3 symmetrical, tachypnea coarse wheezes and scattered rhonchi noted in bilateral posterior lobes. Reports shortness of breath at rest on exertion cough that is productive bb3 Chart Complete MTDD
--- NOTE | 2016-08-18 10:35 | EDDOCDS ---
Physician Documentation [facility] Name: Ada Ayoub Age: 36 yrs Sex: Female : 1980 Arrival Date: 08/15/2016 Time: 00:07 Bed 8 Private MD: Disposition: 08/15/16 05:11 Discharged to Home/Self Care. Impression: Acute bronchitis. - Condition is Stable. - Discharge Instructions: Acute Bronchitis, Viral Infections. - Prescriptions for Zithromax Z- Sav 250 mg Oral Tablet - take 1 tablet by ORAL route as directed for 5 days Day 1- take two tablets once. Day 2, 3, 4 , 5 take one tablet once daily.; 6 tablet. Prednisone 20 mg Oral Tablet - take 2 tablet by ORAL route once daily for 5 days; 10 tablet. benzonatate 200 mg Oral Capsule - take 1 capsule by ORAL route 3 times per day As needed; 30 capsule. - Medication Reconciliation, Local Pharmacy Hours form. - Follow up: Private Physician; When: 4 - 5 days; Reason: Continuance of care. - Problem is an acute exacerbation. - Symptoms have improved. Historical: - Allergies: Maxalt ("made me go unconscious"); Amitriptyline; Bees; - Home Meds: 1. Carafate 1 gram Oral tab as needed 2. duloxetine 60 mg Oral cpDR 1 cap once daily - PMHx: Anxiety; Chronic Back pain; Depression; PTSD; - PSHx: recent stomach surgery to repair hole from gastric bypass surgery; Gastric Bypass; Appendectomy; Cholecystectomy; back surgery x2; left knee surgery; ; Hysterectomy; - Social history: Smoking status: Patient states was never smoker of tobacco. No barriers to communication noted, The patient speaks fluent Pashto. - Family history: Not pertinent. - : The pt / caregiver states he / she is not on anticoagulants. Home medication list is obtained from the patient. - Exposure Risk Screening:: None identified. 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 8 in. (172.72 cm); Pain 8/10; 00:39 BP 107 / 72 (auto/); ko2 00:40 Pulse 100 MON; Pulse Ox 100% ; ko2 00:48 Pulse 94 MON; Pulse Ox 97% ; ko2 00:49 BP 104 / 72 (auto/); ko2 00:59 BP 114 / 81 (auto/); ko2 00:59 Pulse 102 MON; Pulse Ox 97% ; ko2 05:25 BP 122 / 62; Pulse 88; Resp 20; Temp 99.0(O); Pulse Ox 98% on R/A; Pain 0/10; cp1 00:23 Body Mass Index 23.57 (70.31 kg, 172.72 cm) mcp MDM: 00:31 ECG WITH READING ER PHYS+CARDIAG ordered. EDMS 00:47 -Blood Culture (Adults Only), peripheral from different site, or from device/port/PICC mm11 etc. if present ordered. 00:47 Financial Systems Director/Pulse Ox/q 15 min VS ordered. mm11 00:47 Oxygen at 4L/Min NC or Home dosage ordered. mm11 00:47 Rhythm Strip to chart ordered. mm11 00:47 Albuterol-Ipratropium 3 ml Inhalation once ordered. mm11 00:47 Call Respiratory ordered. mm11 00:48 Call Respiratory complete. ko2 00:48 Basic Metabolic Profile Ordered. EDMS 00:48 CBC with Diff Ordered. EDMS 00:48 D-Dimer Quant Ordered. EDMS 00:48 -Blood Culture Ordered. EDMS 00:48 -Influenza A&B Rapid Antigen - Nose Ordered. EDMS 00:48 Chest, 2 View (pa\\E\\lat) Ordered. EDMS 00:58 -Blood Culture (Adults Only), peripheral from different site, or from device/port/PICC ml3 etc. if present complete. 00:59 BLOOD CULTURES Ordered. EDMS 01:10 Financial registration complete. slh 02:18 -Influenza A&B Rapid Antigen - Nose Reviewed. mm11 03:31 CBC with Diff Reviewed. mm11 03:31 Basic Metabolic Profile Reviewed. mm11 03:31 D-Dimer Quant Reviewed. mm11 03:58 [facility] was scanned into [employer] and attached to record. slh 04:30 ketorolac 60 mg IM once ordered. mm11 05:10 Ventolin Inhaler 2 puffs Inhalation once; q 4 hours prn sob, dispense home ordered. mm11 05:10 MDI teaching with Spacer ordered. mm11 05:10 predniSONE 40 mg PO once; administer with food or milk ordered. mm11 13:30 T-Sheet-- Draft Copy was scanned into [employer] and attached to record. gb 13:31 ECG/EKG was scanned into [employer] and attached to record. gb Administered Medications: 01:14 Drug: Albuterol-Ipratropium 3 ml [ipratropium-albuterol 0.5 mg-3 mg(2.5 mg base)/3 mL bb3 nebulization soln (3 mL)] Route: Inhalation; 01:29 Follow up: increased throughout. Lung sounds clear/diminished. Pt had scant amount of bb3 thick dark yellow green sputum spontaneously expectorated during neb tx. Pt denies SOB past baseline at rest. 04:31 CANCELLED (unable to obtain IV): ketorolac 30 mg IVP once ko2 04:31 CANCELLED (unable to obtain IV): NS 0.9% 1000 ml IV at bolus once ko2 04:38 Drug: ketorolac 60 mg [ketorolac 30 mg/mL (1 mL) injection solution (2 mL)] Route: IM; ko2 Site: right gluteus; 05:25 Drug: Ventolin 2 puffs [Ventolin HFA 90 mcg/actuation aerosol inhaler (2 puffs)] Route: cp1 Inhalation; 05:31 Follow up: pt understands and correctly demonstrates proper use of MDI/spacer from bb3 start to finish without error 05:25 Drug: predniSONE 40 mg [prednisone 20 mg tablet (2 tabs)] Route: PO; cp1 Signatures: Dispatcher [employer] Effie Whaley RN RN Carolyn Shultz, Reg Reg Johanna Yoo, Rand Butting Machine Operator Unit ml3 Ba Tilley DO DO mm11 Rachel Martinez LPN LPN cp1 Chelsey Fleming RN RN [email or web address] Kim Gandara Brad bb3 The chart was reviewed and I authenticate all verbal orders and agree with the evaluation and treatment provided.Corrections: (The following items were deleted from the chart) 04:31 00:47 IV Saline Lock ordered. mm11 ko2 04:31 00:47 ketorolac 30 mg IVP once ordered. mm11 ko2 04: 00:47 NS 0.9% 1000 ml IV at bolus once ordered. mm11 ko2 Attachments: 03:58 [facility] [place] Agreement [facility] 13:30 T-Sheet-- Draft Copy gb 13:31 ECG/EKG gb Chart Complete MTDD
== END 2016-08-15 05:44 | disposition home or self-care (01) ==
LOC: M ED 00:07
DX: J20.9 Acute bronchitis, unspecified (principal); M54.9 Dorsalgia, unspecified; G89.29 Other chronic pain; F41.9 Anxiety disorder, unspecified; F32.9 Major depressive disorder, single episode, unspecified; F43.10 Post-traumatic stress disorder, unspecified; Z98.84 Bariatric surgery status; Z79.899 Other long term (current) drug therapy; Z91.030 Bee allergy status; Z88.8 Allergy status to other drugs, medicaments and biological substances
CPT/HCPCS: 36415; 71020; 80048; 85025; 85379; 87040; 87804; 93005; 93041; 94640; 96372; 99284; J1885

== ENCOUNTER → 2016-09-09 | Outpatient (CLI) | payer MEDICARE, MEDICAID ==
[~2016-09-09] VITALS: Ht 172.7 cm; Wt 70.3 kg
[~2016-09-09] MED LIST changes: +DOKTAB2 PO; +LIDOCAINE 2% INJ 100 MG/5 ML SYRINGE As Ordered ONE; +NS 1,000 ML IV SCH; +PROPOFOL 200 MG/20 ML VIAL As Ordered ONE; -[UNRECOGNIZED DRUG - CODE] PO
--- NOTE | 2016-09-09 10:56 | ROOR ---
Patient Name: Ada Ayoub Procedure Date: 09/09/2016 10:41 AM Date of : 1980 Age: 36 Room: [facility] Gender: Female Note Status: Finalized Procedure: Upper GI endoscopy Indications: Epigastric abdominal pain, Follow-up of jejunal perforation Providers: Huy Poole MD Referring MD: Edgardo Pulido MD Requesting Provider: Medicines: Monitored Anesthesia Care Complications: No immediate complications. Procedure: Pre-Anesthesia Assessment: - Prior to the procedure, a History and Physical was performed, and patient medications and allergies were reviewed. The patient is competent. The risks and benefits of the procedure and the sedation options and risks were discussed with the patient. All questions were answered and informed consent was obtained. Patient identification and proposed procedure were verified by the physician, the nurse and the anesthesiologist in the endoscopy suite. Mental Status Examination: alert and oriented. Airway Examination: normal oropharyngeal airway and neck mobility. Respiratory Examination: clear to auscultation. CV Examination: normal. Prophylactic Antibiotics: The patient does not require prophylactic antibiotics. Prior Anticoagulants: The patient has taken no previous anticoagulant or antiplatelet agents. ASA Grade Assessment: II - A patient with mild systemic disease. After reviewing the risks and benefits, the patient was deemed in satisfactory condition to undergo the procedure. The anesthesia plan was to use monitored anesthesia care (MAC). Immediately prior to administration of medications, the patient was re-assessed for adequacy to receive sedatives. The heart rate, respiratory rate, oxygen saturations, blood pressure, adequacy of pulmonary ventilation, and response to care were monitored throughout the procedure. The physical status of the patient was re-assessed after the procedure. The Endoscope was introduced through the mouth, and advanced to the afferent and efferent jejunal loops. The upper GI endoscopy was accomplished without difficulty. The patient tolerated the procedure well. Findings: A medium-sized hiatal hernia was present. Two non-bleeding cratered gastric ulcers with no stigmata of bleeding were found at the anastomosis. The largest lesion was 10 mm in largest dimension. This was biopsied with a cold forceps for histology. Impression: - Medium-sized hiatal hernia. - Non-bleeding gastric ulcers with no stigmata of bleeding. Biopsied. Recommendation: - Discharge patient to home (ambulatory). - discontinue smoking Huy Poole MD Huy Poole MD 09/09/2016 10:56:00 AM This report has been signed electronically. Number of Addenda: 0 Note Initiated On: 09/09/2016 10:41 AM Estimated Blood Loss: Estimated blood loss: none. Estimated blood loss was minimal.
[2016-09-09 11:12] VITALS: BP 124/75
== END ==
LOC: M OPP 09:55
PROVIDERS: ATTEND Surgery
DX: Z09 Encounter for follow-up examination after completed treatment for conditions other than malignant neoplasm (principal); K63.1 Perforation of intestine (nontraumatic); R10.13 Epigastric pain; K44.9 Diaphragmatic hernia without obstruction or gangrene; K25.9 Gastric ulcer, unspecified as acute or chronic, without hemorrhage or perforation; Z98.84 Bariatric surgery status; R10.11 Right upper quadrant pain; R10.819 Abdominal tenderness, unspecified site; R14.0 Abdominal distension (gaseous); R11.2 Nausea with vomiting, unspecified; F41.9 Anxiety disorder, unspecified; G43.909 Migraine, unspecified, not intractable, without status migrainosus; Z90.89 Acquired absence of other organs; Z90.49 Acquired absence of other specified parts of digestive tract; G89.29 Other chronic pain; M54.9 Dorsalgia, unspecified; Z79.899 Other long term (current) drug therapy; Z88.8 Allergy status to other drugs, medicaments and biological substances

== ENCOUNTER 2016-09-15 13:47 | Emergency (ER) | payer MEDICARE, MEDICAID ==
[~2016-09-15 13:47] MED LIST changes: -LIDOCAINE 2% INJ 100 MG/5 ML SYRINGE As Ordered ONE; -NS 1,000 ML IV SCH; -PROPOFOL 200 MG/20 ML VIAL As Ordered ONE
[2016-09-15] MEDS ORDERED: HYDROmorphone HCL 1 MG/ML SYRINGE (J1170) As Ordered ONE (15:11)
--- NOTE | 2016-09-15 16:13 | REP ---
Lumbar spine series: Five views: History: Injury in a fall. Comparison study is from 03/01/2015. Findings: The patient is status post transpedicular screw fixation bandar fusion bilaterally from C3-S1. Anterior screw fixation is seen at the L5-S1 disc. These postsurgical changes are stable from the prior study. There is straightening of the normal lumbar lordosis. Lumbar vertebral body heights are preserved. No malalignment is seen. No fracture or collapse is seen. Pedicles and posterior elements are intact. Sacrum SI joints are intact. There are clips in right upper quadrant of the abdomen. Impression: Status post laminectomy and fusion L2-S1. No traumatic abnormality noted. Straightening. Signed by Dru Dumont MD 09/15/2016 04:22 P
--- NOTE | 2016-09-15 16:19 | EDDOCDS ---
Physician Documentation [facility] Name: Ada Ayoub Age: 36 yrs Sex: Female : 1980 Arrival Date: 09/15/2016 Time: 13:47 Bed TR8 Private MD: Reason, Edward Disposition: 09/15/16 16:01 Discharged to Home/Self Care. Impression: Fall (on) (from) other stairs and steps, Pelvic and perineal pain. - Condition is Stable. - Discharge Instructions: Tailbone Injury. - Prescriptions for Hydrocodone- Acetaminophen 5-325 mg Oral Tablet - take 1 tablet by ORAL route every 6 hours As needed MDD: 4 tabs; 12 tablet. - Medication Reconciliation, [facility] Followup form. - Follow up: Emergency Department; When: As needed; Reason: Worsening of conditions. Follow up: [facility]; When: Call to arrange an appointment; Reason: Recheck today's complaints, Continuance of care. Follow up: [facility]; When: Call to arrange an appointment; Reason: Recheck today's complaints, Continuance of care, To establish care. - Problem is new. - Symptoms have improved. Historical: - Allergies: Amitriptyline; Bees; Maxalt ("made me go unconscious"); - Home Meds: 1. Carafate 1 gram Oral tab as needed 2. Protonix 40 mg Oral TbEC 1 tab once daily 3. Prilosec 20 mg Oral cpDR 1 cap once daily - PMHx: Anxiety; Chronic Back pain; Depression; PTSD; - PSHx: recent stomach surgery to repair hole from gastric bypass surgery; Gastric Bypass; Appendectomy; Cholecystectomy; back surgery x2; left knee surgery; ; Hysterectomy; - Social history: Smoking status: Patient states was never smoker of tobacco. No barriers to communication noted, The patient speaks fluent Divehi, Speaks appropriately for age. - Family history: Not pertinent. - : The pt / caregiver states he / she is not on anticoagulants. Home medication list is obtained from the patient. - Exposure Risk Screening:: None identified. 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 8 in. (172.72 cm) (R); Pain 10/10; 15:53 BP 107 / 68; Pulse 76; Resp 16; Temp 98.1(T); Pulse Ox 98% on R/A; Pain 10/10; dem1 13:49 Body Mass Index 24.33 (72.57 kg, 172.72 cm) elp MDM: 15:04 Dilaudid - HYDROmorphone 1 mg IM once ordered. cc10 15:06 Sacrum/coccyx Ordered. EDMS 15:06 Spine. Lumbosacral, Complete Ordered. EDMS 16:00 [facility] [place] was scanned into [employer] and attached to record. jp5 16:00 Financial registration complete. jp5 Administered Medications: 15:27 Drug: Dilaudid - HYDROmorphone 1 mg [hydromorphone 1 mg/mL injection syringe (1 mL)] mk4 Route: IM; Site: left gluteus; 15:55 Follow up: Response: No significant change. mk4 Signatures: Dispatcher [employer] EDMS Duglas Bedolla RN RN mlb1 Georgette Giordano RN RN mk4 Jayden Fagan PA-C PAJusto cc10 Kim Ferguson jp5 The chart was reviewed and I authenticate all verbal orders and agree with the evaluation and treatment provided.Attachments: 16:00 [facility] [place] Agreement jp5 MTDD
--- NOTE | 2016-09-15 16:19 | EDDOCDS ---
Nurse's Notes [facility] Name: Ada Ayoub Age: 36 yrs Sex: Female : 1980 Arrival Date: 09/15/2016 Time: 13:47 Bed TR8 Private MD: Reason, Edward Diagnosis: Fall (on) (from) other stairs and steps;Pelvic and perineal pain Presentation: 09/15 13:56 Presenting complaint: Patient states: Fell down 10 steps last night, reports coccyx and mlb1 lower back pain. Adult Sepsis Screening: The patient does not have new or worsening altered mentation. Patient's respiratory rate is less than 22. Systolic blood pressure is greater than 100. Patient has a qSOFA score of 0- Negative Sepsis Screen. Suicide/Homicide risk assessment- the patient denies having any suicidal and/or homicidal ideations and does not present with any other emotional, behavioral or mental health complaints. Status: Patient is not a service crew supervisor or dependent. Transition of care: patient was not received from another setting of care. 13:56 Acuity: H[place]IGH Level 4 mlb1 13:56 Method Of Arrival: Walkin/Carried/Asstd mlb1 Triage Assessment: 13:59 General: Appears in no apparent distress, Behavior is appropriate for age, cooperative. mlb1 Pain: Location: coccyx, low back area Pain currently is 9 out of 10 on a pain scale. HIV screening NA for this visit Offered previously. 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 Carafate 1 gram Oral tab as needed 2. Protonix 40 mg Oral TbEC 1 tab once daily 3. Prilosec 20 mg Oral cpDR 1 cap once daily - PMHx: Anxiety; Chronic Back pain; Depression; PTSD; - PSHx: recent stomach surgery to repair hole from gastric bypass surgery; Gastric Bypass; Appendectomy; Cholecystectomy; back surgery x2; left knee surgery; ; Hysterectomy; - Social history: Smoking status: Patient states was never smoker of tobacco. No barriers to communication noted, The patient speaks fluent Icelandic, Speaks appropriately for age. - Family history: Not pertinent. - : The pt / caregiver states he / she is not on anticoagulants. Home medication list is obtained from the patient. - Exposure Risk Screening:: None identified. Screenin:00 Screening information is obtained from the patient. mk4 Assessment: 15:00 General: Appears in no apparent distress, Behavior is cooperative, pt ambulated to Xray mk4 smiling and chatting with quality control engineering technician. Respiratory: Airway is patent Respiratory effort is even, unlabored, Respiratory pattern is regular. Derm: Skin is intact, is healthy with good turgor, Skin is pink, warm & dry. Musculoskeletal: Circulation, motion, and sensation intact. Vital Signs: 13:49 BP 134 / 73; Pulse 91; Resp 18; Temp 98.9(O); Pulse Ox 100% on R/A; Weight 72.57 kg elp (R); Height 5 ft. 8 in. (172.72 cm) (R); Pain 10/10; 15:53 BP 107 / 68; Pulse 76; Resp 16; Temp 98.1(T); Pulse Ox 98% on R/A; Pain 10/10; dem1 13:49 Body Mass Index 24.33 (72.57 kg, 172.72 cm) cox [place]ett Vitals: 13:49 Log In Time: September 15, 2016 at 13:30. elp ED Course: 13:48 Patient visited by Estelle Hollingsworth PCA. elp 13:48 Edgardo Pulido is Private Physician. elp 13:48 Patient moved to Waiting elp 13:49 Patient visited by Estelle Hollingsworth PCA. elp 13:49 Patient moved to Pre RCE elp 13:55 Patient visited by Duglas Bedolla RN. mlb1 13:57 Triage Initiated mlb1 14:01 Patient visited by Duglas Bedolla RN. mlb1 14:52 Patient moved to Triage 1 bnb 14:55 [facility] cc10 14:55 Ade Wetzel MD is Attending Physician. cc10 14:58 Patient visited by Jayden Fagan PA-C. cc10 14:58 Patient visited by Jayden Fagan PA-C. cc10 15:10 Patient moved to PR2 / 26 mk4 15:11 Patient moved to Radiology bnb 15:22 Patient moved to PR2 / 26 gg 15:29 Patient visited by Pasquale, Georgette, RN. mk4 15:53 Patient visited by Link Good. dem1 16:00 [facility] Payment Agreement was scanned into [employer] and attached to record. jp5 16:01 [facility] is Referral Physician. cc10 16:01 [facility] is Referral Physician. cc10 16:15 Patient moved to [facility] dem1 Administered Medications: 15:27 Drug: Dilaudid - HYDROmorphone 1 mg [hydromorphone 1 mg/mL injection syringe (1 mL)] 4 Route: IM; Site: left gluteus; 15:55 Follow up: Response: No significant change. 4 Order Results: There are currently no results for this order. Outcome: 16:01 Discharge ordered by Provider. cc10 16:18 Patient left the ED. 4 Signatures: Duglas Bedolla, RN RN mlb1 Ra Simms Demeishia dem1 Darrick, Estelle, TANK ERECTOR TANK ERECTOR elp Georgette Giordano, RN RN 4 Jayden Fagan PAMarianneC PA-C 10 Kim Ferguson jp5 Yuliya Crowley, TANK ERECTOR TANK ERECTOR bnb MTDD
--- NOTE | 2016-09-17 17:18 | EDDOCDS ---
Nurse's Notes [facility] Name: Ada Ayoub Age: 36 yrs Sex: Female : 1980 Arrival Date: 09/15/2016 Time: 13:47 Bed TR8 Private MD: Reason, Edward Diagnosis: Fall (on) (from) other stairs and steps;Pelvic and perineal pain Presentation: 09/15 13:56 Presenting complaint: Patient states: Fell down 10 steps last night, reports coccyx and mlb1 lower back pain. Adult Sepsis Screening: The patient does not have new or worsening altered mentation. Patient's respiratory rate is less than 22. Systolic blood pressure is greater than 100. Patient has a qSOFA score of 0- Negative Sepsis Screen. Suicide/Homicide risk assessment- the patient denies having any suicidal and/or homicidal ideations and does not present with any other emotional, behavioral or mental health complaints. Status: Patient is not a auto service dispatcher or dependent. Transition of care: patient was not received from another setting of care. 13:56 Acuity: HALEIGH Level 4 mlb1 13:56 Method Of Arrival: Walkin/Carried/Asstd mlb1 Triage Assessment: 13:59 General: Appears in no apparent distress, Behavior is appropriate for age, cooperative. mlb1 Pain: Location: coccyx, low back area Pain currently is 9 out of 10 on a pain scale. HIV screening NA for this visit Offered previously. 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 Carafate 1 gram Oral tab as needed 2. Protonix 40 mg Oral TbEC 1 tab once daily 3. Prilosec 20 mg Oral cpDR 1 cap once daily - PMHx: Anxiety; Chronic Back pain; Depression; PTSD; - PSHx: recent stomach surgery to repair hole from gastric bypass surgery; Gastric Bypass; Appendectomy; Cholecystectomy; back surgery x2; left knee surgery; ; Hysterectomy; - Social history: Smoking status: Patient states was never smoker of tobacco. No barriers to communication noted, The patient speaks fluent Upper Sorbian, Speaks appropriately for age. - Family history: Not pertinent. - : The pt / caregiver states he / she is not on anticoagulants. Home medication list is obtained from the patient. - Exposure Risk Screening:: None identified. Screenin:00 Screening information is obtained from the patient. mk4 Assessment: 15:00 General: Appears in no apparent distress, Behavior is cooperative, pt ambulated to Xray mk4 smiling and chatting with electrical electronics technician. Respiratory: Airway is patent Respiratory effort is even, unlabored, Respiratory pattern is regular. Derm: Skin is intact, is healthy with good turgor, Skin is pink, warm & dry. Musculoskeletal: Circulation, motion, and sensation intact. Vital Signs: 13:49 BP 134 / 73; Pulse 91; Resp 18; Temp 98.9(O); Pulse Ox 100% on R/A; Weight 72.57 kg elp (R); Height 5 ft. 8 in. (172.72 cm) (R); Pain 10/10; 15:53 BP 107 / 68; Pulse 76; Resp 16; Temp 98.1(T); Pulse Ox 98% on R/A; Pain 10/10; dem1 13:49 Body Mass Index 24.33 (72.57 kg, 172.72 cm) [facility] Vitals: 13:49 Log In Time: September 15, 2016 at 13:30. elp ED Course: 13:48 Patient visited by Estelle Hollingsworth PCA. elp 13:48 Edgardo uPlido is Private Physician. elp 13:48 Patient moved to Waiting elp 13:49 Patient visited by Estelle Hollingsworth PCA. elp 13:49 Patient moved to Pre RCE elp 13:55 Patient visited by Duglas Bedolla RN. mlb1 13:57 Triage Initiated mlb1 14:01 Patient visited by Duglas Bedolla RN. mlb1 14:52 Patient moved to Triage 1 bnb 14:55 [facility] Fagan [facility] cc10 14:55 Ade Wetzel MD is Attending Physician. cc10 14:58 Patient visited by Jayden Fagan PA-C. cc10 14:58 Patient visited by Jayden Fagan PA-C. cc10 15:10 Patient moved to PR2 / 26 mk4 15:11 Patient moved to Radiology bnb 15:22 Patient moved to PR2 / 26 gg 15:29 Patient visited by Georgette Giordano RN. mk4 15:53 Patient visited by Link Good. dem1 16:00 [facility] Payment Agreement was scanned into [employer] and attached to record. jp5 16:01 [facility] is Referral Physician. cc10 16:01 [facility] is Referral Physician. cc10 16:15 Patient moved to TR8 dem1 16:27 Sacrum/coccyx Returned. EDMS 16:27 Spine. Lumbosacral, Complete Returned. EDMS 16:52 Patient name changed from Ada\\S\\\\S\\Ayoub\\S\\ to Ada\\S\\Stephanie\\S\\Ayoub. EDMS 0208 10:17 T-Sheet-- Draft Copy was scanned into [employer] and attached to record. gb Administered Medications: 09/15 15:27 Drug: Dilaudid - HYDROmorphone 1 mg [hydromorphone 1 mg/mL injection syringe (1 mL)] 4 Route: IM; Site: left gluteus; 15:55 Follow up: Response: No significant change. 4 Order Results: Radiology Order: Sacrum/coccyx Test: Sacrum/coccyx REASON FOR EXAMINATION: Trauma; Sacrum and coccyx three views:; ; There are bilateral laminectomies at L4-L5. There is surgical fusion of L3, L4,; L5 and S1. There is a disc prosthesis and L5 S1.; ; There is no displacement or fracture of the surgical hardware. The sacroiliac; articulations are unremarkable. The sacral ala and foramen are unremarkable.; ; On the lateral view there is question of a nondisplaced fracture of the fifth; sacral segment. This should be correlated with clinical point tenderness. MRI; or CT might be considered depending on clinical findings.; ; Surgical staple lines are noted in the pelvis bilaterally.; ; Impression:; ; Questionable nondisplaced fracture of the fifth sacral segment. Correlation with; clinical point tenderness recommended. Consider CT or MRI for confirmation.; ; ; Signed by; J Carlos Singh MD 09/15/2016 03:51 P; Radiology Order: Spine. Lumbosacral, Complete Test: Spine. Lumbosacral, Complete REASON FOR EXAMINATION: Trauma; Lumbar spine series: Five views:; ; History: Injury in a fall.; ; Comparison study is from 03/01/2015.; ; Findings: The patient is status post transpedicular screw fixation bandar fusion; bilaterally from C3-S1. Anterior screw fixation is seen at the L5-S1 disc. These; postsurgical changes are stable from the prior study. There is straightening of; the normal lumbar lordosis. Lumbar vertebral body heights are preserved. No; malalignment is seen. No fracture or collapse is seen. Pedicles and posterior; elements are intact. Sacrum SI joints are intact. There are clips in right; upper quadrant of the abdomen.; ; Impression:; ; Status post laminectomy and fusion L2-S1. No traumatic abnormality noted.; Straightening.; ; ; Signed by; Dru Dumont MD 09/15/2016 04:22 P; Outcome: 16:01 Discharge ordered by Provider. cc10 16:18 Patient left the ED. mk4 Signatures: Dispatcher [employer] EDMS Carolyn Perez, Rich Reg gb Duglas Bedolla, RN RN mlb1 Ra Simms Demeishia dem1 Estelle Hollingsworth, FUSING MACHINE TENDER FUSING MACHINE TENDER Georgette Obrien RN RN mk4 Jayden Fagan, PA-C PA-C cc10 Kim Ferguson jp5 Yuliya Crowley, FUSING MACHINE TENDER FUSING MACHINE TENDER bnb Chart Complete MTDD
--- NOTE | 2016-09-17 17:18 | EDDOCDS ---
Physician Documentation [facility] Name: Ada Ayoub Age: 36 yrs Sex: Female : 1980 Arrival Date: 09/15/2016 Time: 13:47 Bed TR8 Private MD: Reason, Edward Disposition: 09/15/16 16:01 Discharged to Home/Self Care. Impression: Fall (on) (from) other stairs and steps, Pelvic and perineal pain. - Condition is Stable. - Discharge Instructions: Tailbone Injury. - Prescriptions for Hydrocodone- Acetaminophen 5-325 mg Oral Tablet - take 1 tablet by ORAL route every 6 hours As needed MDD: 4 tabs; 12 tablet. - Medication Reconciliation, [facility] Followup form. - Follow up: Emergency Department; When: As needed; Reason: Worsening of conditions. Follow up: [facility]; When: Call to arrange an appointment; Reason: Recheck today's complaints, Continuance of care. Follow up: [facility]; When: Call to arrange an appointment; Reason: Recheck today's complaints, Continuance of care, To establish care. - Problem is new. - Symptoms have improved. Historical: - Allergies: Amitriptyline; Bees; Maxalt ("made me go unconscious"); - Home Meds: 1. Carafate 1 gram Oral tab as needed 2. Protonix 40 mg Oral TbEC 1 tab once daily 3. Prilosec 20 mg Oral cpDR 1 cap once daily - PMHx: Anxiety; Chronic Back pain; Depression; PTSD; - PSHx: recent stomach surgery to repair hole from gastric bypass surgery; Gastric Bypass; Appendectomy; Cholecystectomy; back surgery x2; left knee surgery; ; Hysterectomy; - Social history: Smoking status: Patient states was never smoker of tobacco. No barriers to communication noted, The patient speaks fluent Belarusian, Speaks appropriately for age. - Family history: Not pertinent. - : The pt / caregiver states he / she is not on anticoagulants. Home medication list is obtained from the patient. - Exposure Risk Screening:: None identified. 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 8 in. (172.72 cm) (R); Pain 10/10; 15:53 BP 107 / 68; Pulse 76; Resp 16; Temp 98.1(T); Pulse Ox 98% on R/A; Pain 10/10; dem1 13:49 Body Mass Index 24.33 (72.57 kg, 172.72 cm) elp MDM: 15:04 Dilaudid - HYDROmorphone 1 mg IM once ordered. cc10 15:06 Sacrum/coccyx Ordered. EDMS 15:06 Spine. Lumbosacral, Complete Ordered. EDMS 16:00 [facility] Payment Agreement was scanned into [employer] and attached to record. jp5 16:00 Financial registration complete. jp5 09/16 10:17 T-Sheet-- Draft Copy was scanned into [employer] and attached to record. gb Administered Medications: 09/15 15:27 Drug: Dilaudid - HYDROmorphone 1 mg [hydromorphone 1 mg/mL injection syringe (1 mL)] mk4 Route: IM; Site: left gluteus; 15:55 Follow up: Response: No significant change. mk4 Signatures: Dispatcher [employer] EDCarolyn Nova, Rich Reg gb Duglas Bedolla, RN RN mlb1 Georgette Giordano RN RN mk4 Jayden Fagan, PA-C PA-C cc10 Kim Ferguson jp5 The chart was reviewed and I authenticate all verbal orders and agree with the evaluation and treatment provided.Attachments: 16:00 [facility] Payment Agreement jp5 09/16 10:17 T-Sheet-- Draft Copy gb Chart Complete MTDD
--- NOTE | 2016-09-17 17:18 | EDDOCDS ---
Physician Documentation [facility] Name: Ada Ayoub Age: 36 yrs Sex: Female : 1980 Arrival Date: 09/15/2016 Time: 13:47 Bed TR8 Private MD: Reason, Edward Disposition: 09/15/16 16:01 Discharged to Home/Self Care. Impression: Fall (on) (from) other stairs and steps, Pelvic and perineal pain. - Condition is Stable. - Discharge Instructions: Tailbone Injury. - Prescriptions for Hydrocodone- Acetaminophen 5-325 mg Oral Tablet - take 1 tablet by ORAL route every 6 hours As needed MDD: 4 tabs; 12 tablet. - Medication Reconciliation, [facility] Followup form. - Follow up: Emergency Department; When: As needed; Reason: Worsening of conditions. Follow up: [facility]; When: Call to arrange an appointment; Reason: Recheck today's complaints, Continuance of care. Follow up: [facility]; When: Call to arrange an appointment; Reason: Recheck today's complaints, Continuance of care, To establish care. - Problem is new. - Symptoms have improved. Historical: - Allergies: Amitriptyline; Bees; Maxalt ("made me go unconscious"); - Home Meds: 1. Carafate 1 gram Oral tab as needed 2. Protonix 40 mg Oral TbEC 1 tab once daily 3. Prilosec 20 mg Oral cpDR 1 cap once daily - PMHx: Anxiety; Chronic Back pain; Depression; PTSD; - PSHx: recent stomach surgery to repair hole from gastric bypass surgery; Gastric Bypass; Appendectomy; Cholecystectomy; back surgery x2; left knee surgery; ; Hysterectomy; - Social history: Smoking status: Patient states was never smoker of tobacco. No barriers to communication noted, The patient speaks fluent Belarusian, Speaks appropriately for age. - Family history: Not pertinent. - : The pt / caregiver states he / she is not on anticoagulants. Home medication list is obtained from the patient. - Exposure Risk Screening:: None identified. 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 8 in. (172.72 cm) (R); Pain 10/10; 15:53 BP 107 / 68; Pulse 76; Resp 16; Temp 98.1(T); Pulse Ox 98% on R/A; Pain 10/10; dem1 13:49 Body Mass Index 24.33 (72.57 kg, 172.72 cm) elp MDM: 15:04 Dilaudid - HYDROmorphone 1 mg IM once ordered. cc10 15:06 Sacrum/coccyx Ordered. EDMS 15:06 Spine. Lumbosacral, Complete Ordered. EDMS 16:00 [facility] Payment Agreement was scanned into [employer] and attached to record. jp5 16:00 Financial registration complete. jp5 09/16 10:17 T-Sheet-- Draft Copy was scanned into [employer] and attached to record. gb Administered Medications: 09/15 15:27 Drug: Dilaudid - HYDROmorphone 1 mg [hydromorphone 1 mg/mL injection syringe (1 mL)] mk4 Route: IM; Site: left gluteus; 15:55 Follow up: Response: No significant change. mk4 Signatures: Dispatcher [employer] EDCarolyn Nova, Rich Reg gb Duglas Bedolla, RN RN mlb1 Georgette Giordano RN RN mk4 Jayden Fagan, PA-C PA-C cc10 Kim Ferguson jp5 The chart was reviewed and I authenticate all verbal orders and agree with the evaluation and treatment provided.Attachments: 16:00 [facility] Payment Agreement jp5 09/16 10:17 T-Sheet-- Draft Copy gb Chart Complete MTDD
--- NOTE | 2016-09-19 09:07 | EDDOCDS ---
Physician Documentation [facility] Name: Ada Ayoub Age: 36 yrs Sex: Female : 1980 Arrival Date: 09/15/2016 Time: 13:47 Bed TR8 Private MD: Reason, Edward Disposition: 09/15/16 16:01 Discharged to Home/Self Care. Impression: Fall (on) (from) other stairs and steps, Pelvic and perineal pain. - Condition is Stable. - Discharge Instructions: Tailbone Injury. - Prescriptions for Hydrocodone- Acetaminophen 5-325 mg Oral Tablet - take 1 tablet by ORAL route every 6 hours As needed MDD: 4 tabs; 12 tablet. - Medication Reconciliation, [facility] Followup form. - Follow up: Emergency Department; When: As needed; Reason: Worsening of conditions. Follow up: [facility]; When: Call to arrange an appointment; Reason: Recheck today's complaints, Continuance of care. Follow up: [facility]; When: Call to arrange an appointment; Reason: Recheck today's complaints, Continuance of care, To establish care. - Problem is new. - Symptoms have improved. Historical: - Allergies: Amitriptyline; Bees; Maxalt ("made me go unconscious"); - Home Meds: 1. Carafate 1 gram Oral tab as needed 2. Protonix 40 mg Oral TbEC 1 tab once daily 3. Prilosec 20 mg Oral cpDR 1 cap once daily - PMHx: Anxiety; Chronic Back pain; Depression; PTSD; - PSHx: recent stomach surgery to repair hole from gastric bypass surgery; Gastric Bypass; Appendectomy; Cholecystectomy; back surgery x2; left knee surgery; ; Hysterectomy; - Social history: Smoking status: Patient states was never smoker of tobacco. No barriers to communication noted, The patient speaks fluent Bengali, Speaks appropriately for age. - Family history: Not pertinent. - : The pt / caregiver states he / she is not on anticoagulants. Home medication list is obtained from the patient. - Exposure Risk Screening:: None identified. 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 8 in. (172.72 cm) (R); Pain 10/10; 15:53 BP 107 / 68; Pulse 76; Resp 16; Temp 98.1(T); Pulse Ox 98% on R/A; Pain 10/10; dem1 13:49 Body Mass Index 24.33 (72.57 kg, 172.72 cm) elp MDM: 15:04 Dilaudid - HYDROmorphone 1 mg IM once ordered. cc10 15:06 Sacrum/coccyx Ordered. EDMS 15:06 Spine. Lumbosacral, Complete Ordered. EDMS 16:00 [facility] Payment Agreement was scanned into [employer] and attached to record. jp5 16: Financial registration complete. jp5 09/16 10:17 T-Sheet-- Draft Copy was scanned into [employer] and attached to record. gb Administered Medications: 09/15 15:27 Drug: Dilaudid - HYDROmorphone 1 mg [hydromorphone 1 mg/mL injection syringe (1 mL)] mk4 Route: IM; Site: left gluteus; 15:55 Follow up: Response: No significant change. mk4 Addendum: 09/19/2016 09:05 Radiology Callback: Radiology results faxed to primary care physician/provider. cleo griffith and dr alexander faxed formal report of sacrum film lmg. Signatures: Dispatcher [employer] EDIA Shandra Bush MD MD ml Barnhardt, Gloria, Reg Reg gb Duglas Bedolla RN RN mlb1 Georgette Giordano RN RN mk4 Jayden Fagan PA-C PA-C cc10 Kim Ferguson jp5 The chart was reviewed and I authenticate all verbal orders and agree with the evaluation and treatment provided.Attachments: 09/15 16:00 [facility] Payment Agreement jp5 09/16 10:17 T-Sheet-- Draft Copy gb Chart Complete MTDD
--- NOTE | 2016-09-19 09:07 | EDDOCDS ---
Physician Documentation [facility] Name: Ada Ayoub Age: 36 yrs Sex: Female : 1980 Arrival Date: 09/15/2016 Time: 13:47 Bed TR8 Private MD: Reason, Edward Disposition: 09/15/16 16:01 Discharged to Home/Self Care. Impression: Fall (on) (from) other stairs and steps, Pelvic and perineal pain. - Condition is Stable. - Discharge Instructions: Tailbone Injury. - Prescriptions for Hydrocodone- Acetaminophen 5-325 mg Oral Tablet - take 1 tablet by ORAL route every 6 hours As needed MDD: 4 tabs; 12 tablet. - Medication Reconciliation, [facility] Followup form. - Follow up: Emergency Department; When: As needed; Reason: Worsening of conditions. Follow up: [facility]; When: Call to arrange an appointment; Reason: Recheck today's complaints, Continuance of care. Follow up: [facility]; When: Call to arrange an appointment; Reason: Recheck today's complaints, Continuance of care, To establish care. - Problem is new. - Symptoms have improved. Historical: - Allergies: Amitriptyline; Bees; Maxalt ("made me go unconscious"); - Home Meds: 1. Carafate 1 gram Oral tab as needed 2. Protonix 40 mg Oral TbEC 1 tab once daily 3. Prilosec 20 mg Oral cpDR 1 cap once daily - PMHx: Anxiety; Chronic Back pain; Depression; PTSD; - PSHx: recent stomach surgery to repair hole from gastric bypass surgery; Gastric Bypass; Appendectomy; Cholecystectomy; back surgery x2; left knee surgery; ; Hysterectomy; - Social history: Smoking status: Patient states was never smoker of tobacco. No barriers to communication noted, The patient speaks fluent Albanian, Speaks appropriately for age. - Family history: Not pertinent. - : The pt / caregiver states he / she is not on anticoagulants. Home medication list is obtained from the patient. - Exposure Risk Screening:: None identified. 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 8 in. (172.72 cm) (R); Pain 10/10; 15:53 BP 107 / 68; Pulse 76; Resp 16; Temp 98.1(T); Pulse Ox 98% on R/A; Pain 10/10; dem1 13:49 Body Mass Index 24.33 (72.57 kg, 172.72 cm) elp MDM: 15:04 Dilaudid - HYDROmorphone 1 mg IM once ordered. cc10 15:06 Sacrum/coccyx Ordered. EDMS 15:06 Spine. Lumbosacral, Complete Ordered. EDMS 16:00 [facility] Payment Agreement was scanned into [employer] and attached to record. jp5 16: Financial registration complete. jp5 09/16 10:17 T-Sheet-- Draft Copy was scanned into [employer] and attached to record. gb Administered Medications: 09/15 15:27 Drug: Dilaudid - HYDROmorphone 1 mg [hydromorphone 1 mg/mL injection syringe (1 mL)] mk4 Route: IM; Site: left gluteus; 15:55 Follow up: Response: No significant change. mk4 Addendum: 09/19/2016 09:05 Radiology Callback: Radiology results faxed to primary care physician/provider. cleo griffith and dr alexander faxed formal report of sacrum film lmg. Signatures: Dispatcher [employer] EDOK Shandra Bush MD MD ml Barnhardt, Gloria, Reg Reg gb Duglas Bedolla RN RN mlb1 Georgette Giordano RN RN mk4 Jayden Fagan PA-C PA-C cc10 Kim Ferguson jp5 The chart was reviewed and I authenticate all verbal orders and agree with the evaluation and treatment provided.Attachments: 09/15 16:00 [facility] Payment Agreement jp5 09/16 10:17 T-Sheet-- Draft Copy gb MTDD
--- NOTE | 2016-09-19 09:07 | EDDOCDS ---
Physician Documentation [facility] Name: Ada Ayoub Age: 36 yrs Sex: Female : 1980 Arrival Date: 09/15/2016 Time: 13:47 Bed TR8 Private MD: Reason, Edward Disposition: 09/15/16 16:01 Discharged to Home/Self Care. Impression: Fall (on) (from) other stairs and steps, Pelvic and perineal pain. - Condition is Stable. - Discharge Instructions: Tailbone Injury. - Prescriptions for Hydrocodone- Acetaminophen 5-325 mg Oral Tablet - take 1 tablet by ORAL route every 6 hours As needed MDD: 4 tabs; 12 tablet. - Medication Reconciliation, [facility] Followup form. - Follow up: Emergency Department; When: As needed; Reason: Worsening of conditions. Follow up: [facility]; When: Call to arrange an appointment; Reason: Recheck today's complaints, Continuance of care. Follow up: [facility]; When: Call to arrange an appointment; Reason: Recheck today's complaints, Continuance of care, To establish care. - Problem is new. - Symptoms have improved. Historical: - Allergies: Amitriptyline; Bees; Maxalt ("made me go unconscious"); - Home Meds: 1. Carafate 1 gram Oral tab as needed 2. Protonix 40 mg Oral TbEC 1 tab once daily 3. Prilosec 20 mg Oral cpDR 1 cap once daily - PMHx: Anxiety; Chronic Back pain; Depression; PTSD; - PSHx: recent stomach surgery to repair hole from gastric bypass surgery; Gastric Bypass; Appendectomy; Cholecystectomy; back surgery x2; left knee surgery; ; Hysterectomy; - Social history: Smoking status: Patient states was never smoker of tobacco. No barriers to communication noted, The patient speaks fluent Hungarian, Speaks appropriately for age. - Family history: Not pertinent. - : The pt / caregiver states he / she is not on anticoagulants. Home medication list is obtained from the patient. - Exposure Risk Screening:: None identified. 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 8 in. (172.72 cm) (R); Pain 10/10; 15:53 BP 107 / 68; Pulse 76; Resp 16; Temp 98.1(T); Pulse Ox 98% on R/A; Pain 10/10; dem1 13:49 Body Mass Index 24.33 (72.57 kg, 172.72 cm) elp MDM: 15:04 Dilaudid - HYDROmorphone 1 mg IM once ordered. cc10 15:06 Sacrum/coccyx Ordered. EDMS 15:06 Spine. Lumbosacral, Complete Ordered. EDMS 16:00 [facility] Payment Agreement was scanned into [employer] and attached to record. jp5 16: Financial registration complete. jp5 09/16 10:17 T-Sheet-- Draft Copy was scanned into [employer] and attached to record. gb Administered Medications: 09/15 15:27 Drug: Dilaudid - HYDROmorphone 1 mg [hydromorphone 1 mg/mL injection syringe (1 mL)] mk4 Route: IM; Site: left gluteus; 15:55 Follow up: Response: No significant change. mk4 Addendum: 09/19/2016 09:05 Radiology Callback: Radiology results faxed to primary care physician/provider. lceo griffith and dr alexander faxed formal report of sacrum film lmg. Signatures: Dispatcher MedHo EDOK Shandra Bush MD MD ml Barnhardt, Gloria, Reg Reg gb Duglas Bedolla RN RN mlb1 Georgette Giordano RN RN mk4 Jayden Fagan PA-C PA-C cc10 Kim Ferguson jp5 The chart was reviewed and I authenticate all verbal orders and agree with the evaluation and treatment provided.Attachments: 09/15 16:00 [facility] Payment Agreement jp5 09/16 10:17 T-Sheet-- Draft Copy gb MTDD
--- NOTE | 2016-09-19 09:07 | EDDOCDS ---
Nurse's Notes [facility] Name: Ada Ayoub Age: 36 yrs Sex: Female : 1980 Arrival Date: 09/15/2016 Time: 13:47 Bed TR8 Private MD: Reason, Edward Diagnosis: Fall (on) (from) other stairs and steps;Pelvic and perineal pain Presentation: 09/15 13:56 Presenting complaint: Patient states: Fell down 10 steps last night, reports coccyx and mlb1 lower back pain. Adult Sepsis Screening: The patient does not have new or worsening altered mentation. Patient's respiratory rate is less than 22. Systolic blood pressure is greater than 100. Patient has a qSOFA score of 0- Negative Sepsis Screen. Suicide/Homicide risk assessment- the patient denies having any suicidal and/or homicidal ideations and does not present with any other emotional, behavioral or mental health complaints. Status: Patient is not a coordinator of genetic services or dependent. Transition of care: patient was not received from another setting of care. 13:56 Acuity: HALEIGH Level 4 mlb1 13:56 Method Of Arrival: Walkin/Carried/Asstd mlb1 Triage Assessment: 13:59 General: Appears in no apparent distress, Behavior is appropriate for age, cooperative. mlb1 Pain: Location: coccyx, low back area Pain currently is 9 out of 10 on a pain scale. HIV screening NA for this visit Offered previously. 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 Carafate 1 gram Oral tab as needed 2. Protonix 40 mg Oral TbEC 1 tab once daily 3. Prilosec 20 mg Oral cpDR 1 cap once daily - PMHx: Anxiety; Chronic Back pain; Depression; PTSD; - PSHx: recent stomach surgery to repair hole from gastric bypass surgery; Gastric Bypass; Appendectomy; Cholecystectomy; back surgery x2; left knee surgery; ; Hysterectomy; - Social history: Smoking status: Patient states was never smoker of tobacco. No barriers to communication noted, The patient speaks fluent Maori, Speaks appropriately for age. - Family history: Not pertinent. - : The pt / caregiver states he / she is not on anticoagulants. Home medication list is obtained from the patient. - Exposure Risk Screening:: None identified. Screenin:00 Screening information is obtained from the patient. mk4 Assessment: 15:00 General: Appears in no apparent distress, Behavior is cooperative, pt ambulated to Xray mk4 smiling and chatting with event crew technician. Respiratory: Airway is patent Respiratory effort is even, unlabored, Respiratory pattern is regular. Derm: Skin is intact, is healthy with good turgor, Skin is pink, warm & dry. Musculoskeletal: Circulation, motion, and sensation intact. Vital Signs: 13:49 BP 134 / 73; Pulse 91; Resp 18; Temp 98.9(O); Pulse Ox 100% on R/A; Weight 72.57 kg elp (R); Height 5 ft. 8 in. (172.72 cm) (R); Pain 10/10; 15:53 BP 107 / 68; Pulse 76; Resp 16; Temp 98.1(T); Pulse Ox 98% on R/A; Pain 10/10; dem1 13:49 Body Mass Index 24.33 (72.57 kg, 172.72 cm) [facility] Vitals: 13:49 Log In Time: September 15, 2016 at 13:30. elp ED Course: 13:48 Patient visited by Estelle Hollingsworth PCA. elp 13:48 Edgardo Pulido is Private Physician. elp 13:48 Patient moved to Waiting elp 13:49 Patient visited by Estelle Hollingsworth PCA. elp 13:49 Patient moved to Pre RCE elp 13:55 Patient visited by Duglas Bedolla RN. mlb1 13:57 Triage Initiated mlb1 14:01 Patient visited by Duglas Bedolla RN. mlb1 14:52 Patient moved to Triage 1 bnb 14:55 [facility] cc10 14:55 Ade Wetzel MD is Attending Physician. cc10 14:58 Patient visited by Jayden Fagan PA-C. cc10 14:58 Patient visited by Jayden Fagan PA-C. cc10 15:10 Patient moved to PR2 / 26 mk4 15:11 Patient moved to Radiology bnb 15:22 Patient moved to PR2 / 26 gg 15:29 Patient visited by Georgette Giordano RN. mk4 15:53 Patient visited by Link Good. dem1 16:00 [facility] Payment Agreement was scanned into [employer] and attached to record. jp5 16:01 [facility] is Referral Physician. cc10 16:01 [facility] is Referral Physician. cc10 16:15 Patient moved to TR8 dem1 16:27 Sacrum/coccyx Returned. EDMS 16:27 Spine. Lumbosacral, Complete Returned. EDMS 16:52 Patient name changed from Ada\\S\\\\S\\Ayoub\\S\\ to Ada\\S\\Stephanie\\S\\Ayoub. EDMS 0208 10:17 T-Sheet-- Draft Copy was scanned into [employer] and attached to record. gb Administered Medications: 09/15 15:27 Drug: Dilaudid - HYDROmorphone 1 mg [hydromorphone 1 mg/mL injection syringe (1 mL)] 4 Route: IM; Site: left gluteus; 15:55 Follow up: Response: No significant change. 4 Order Results: Radiology Order: Sacrum/coccyx Test: Sacrum/coccyx REASON FOR EXAMINATION: Trauma; Sacrum and coccyx three views:; ; There are bilateral laminectomies at L4-L5. There is surgical fusion of L3, L4,; L5 and S1. There is a disc prosthesis and L5 S1.; ; There is no displacement or fracture of the surgical hardware. The sacroiliac; articulations are unremarkable. The sacral ala and foramen are unremarkable.; ; On the lateral view there is question of a nondisplaced fracture of the fifth; sacral segment. This should be correlated with clinical point tenderness. MRI; or CT might be considered depending on clinical findings.; ; Surgical staple lines are noted in the pelvis bilaterally.; ; Impression:; ; Questionable nondisplaced fracture of the fifth sacral segment. Correlation with; clinical point tenderness recommended. Consider CT or MRI for confirmation.; ; ; Signed by; J Carlos Singh MD 09/15/2016 03:51 P; Radiology Order: Spine. Lumbosacral, Complete Test: Spine. Lumbosacral, Complete REASON FOR EXAMINATION: Trauma; Lumbar spine series: Five views:; ; History: Injury in a fall.; ; Comparison study is from 03/01/2015.; ; Findings: The patient is status post transpedicular screw fixation bandar fusion; bilaterally from C3-S1. Anterior screw fixation is seen at the L5-S1 disc. These; postsurgical changes are stable from the prior study. There is straightening of; the normal lumbar lordosis. Lumbar vertebral body heights are preserved. No; malalignment is seen. No fracture or collapse is seen. Pedicles and posterior; elements are intact. Sacrum SI joints are intact. There are clips in right; upper quadrant of the abdomen.; ; Impression:; ; Status post laminectomy and fusion L2-S1. No traumatic abnormality noted.; Straightening.; ; ; Signed by; Dru Dumont MD 09/15/2016 04:22 P; Outcome: 16:01 Discharge ordered by Provider. cc10 16:18 Patient left the ED. mk4 Signatures: Dispatcher MedHost EDMS Carolyn Perez, Rich Villanueva gb Duglas Bedolla, RN RN mlb1 Ra Simms Demeishia dem1 Estelle Hollingsworth, VIRTUAL ASSISTANT FOR ADVERTISERS VIRTUAL ASSISTANT FOR ADVERTISERS Georgette Obrien RN RN mk4 Jayden Fagan, PAJusto PA-C cc10 Kim Ferguson jp5 Yuliya Crowley, VIRTUAL ASSISTANT FOR ADVERTISERS VIRTUAL ASSISTANT FOR ADVERTISERS bnb [id number]
--- NOTE | 2016-09-19 09:08 | EDDOCDS ---
Physician Documentation [facility] Name: Ada Ayoub Age: 36 yrs Sex: Female : 1980 Arrival Date: 09/15/2016 Time: 13:47 Bed TR8 Private MD: Reason, Edward Disposition: 09/15/16 16:01 Discharged to Home/Self Care. Impression: Fall (on) (from) other stairs and steps, Pelvic and perineal pain. - Condition is Stable. - Discharge Instructions: Tailbone Injury. - Prescriptions for Hydrocodone- Acetaminophen 5-325 mg Oral Tablet - take 1 tablet by ORAL route every 6 hours As needed MDD: 4 tabs; 12 tablet. - Medication Reconciliation, [facility] Followup form. - Follow up: Emergency Department; When: As needed; Reason: Worsening of conditions. Follow up: [facility]; When: Call to arrange an appointment; Reason: Recheck today's complaints, Continuance of care. Follow up: [facility]; When: Call to arrange an appointment; Reason: Recheck today's complaints, Continuance of care, To establish care. - Problem is new. - Symptoms have improved. Historical: - Allergies: Amitriptyline; Bees; Maxalt ("made me go unconscious"); - Home Meds: 1. Carafate 1 gram Oral tab as needed 2. Protonix 40 mg Oral TbEC 1 tab once daily 3. Prilosec 20 mg Oral cpDR 1 cap once daily - PMHx: Anxiety; Chronic Back pain; Depression; PTSD; - PSHx: recent stomach surgery to repair hole from gastric bypass surgery; Gastric Bypass; Appendectomy; Cholecystectomy; back surgery x2; left knee surgery; ; Hysterectomy; - Social history: Smoking status: Patient states was never smoker of tobacco. No barriers to communication noted, The patient speaks fluent Kinyarwanda, Speaks appropriately for age. - Family history: Not pertinent. - : The pt / caregiver states he / she is not on anticoagulants. Home medication list is obtained from the patient. - Exposure Risk Screening:: None identified. 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 8 in. (172.72 cm) (R); Pain 10/10; 15:53 BP 107 / 68; Pulse 76; Resp 16; Temp 98.1(T); Pulse Ox 98% on R/A; Pain 10/10; dem1 13:49 Body Mass Index 24.33 (72.57 kg, 172.72 cm) elp MDM: 15:04 Dilaudid - HYDROmorphone 1 mg IM once ordered. cc10 15:06 Sacrum/coccyx Ordered. EDMS 15:06 Spine. Lumbosacral, Complete Ordered. EDMS 16:00 [facility] Payment Agreement was scanned into [employer] and attached to record. jp5 16: Financial registration complete. jp5 09/16 10:17 T-Sheet-- Draft Copy was scanned into [employer] and attached to record. gb Administered Medications: 09/15 15:27 Drug: Dilaudid - HYDROmorphone 1 mg [hydromorphone 1 mg/mL injection syringe (1 mL)] mk4 Route: IM; Site: left gluteus; 15:55 Follow up: Response: No significant change. mk4 Addendum: 09/19/2016 09:05 Radiology Callback: Radiology results faxed to primary care physician/provider. cleo griffith and dr alexander faxed formal report of sacrum film lmg. Signatures: Dispatcher MedHo EDNY Shandra Bush MD MD ml Barnhardt, Gloria, Reg Reg gb Duglas Bedolla RN RN mlb1 Georgette Giordano RN RN mk4 Jayden Fagan PA-C PA-C cc10 Kim Ferguson jp5 The chart was reviewed and I authenticate all verbal orders and agree with the evaluation and treatment provided.Attachments: 09/15 16:00 [facility] Payment Agreement jp5 09/16 10:17 T-Sheet-- Draft Copy gb Chart Complete MTDD
--- NOTE | 2016-09-19 09:08 | EDDOCDS ---
Nurse's Notes [facility] Name: Ada Ayoub Age: 36 yrs Sex: Female : 1980 Arrival Date: 09/15/2016 Time: 13:47 Bed TR8 Private MD: Reason, Edward Diagnosis: Fall (on) (from) other stairs and steps;Pelvic and perineal pain Presentation: 09/15 13:56 Presenting complaint: Patient states: Fell down 10 steps last night, reports coccyx and mlb1 lower back pain. Adult Sepsis Screening: The patient does not have new or worsening altered mentation. Patient's respiratory rate is less than 22. Systolic blood pressure is greater than 100. Patient has a qSOFA score of 0- Negative Sepsis Screen. Suicide/Homicide risk assessment- the patient denies having any suicidal and/or homicidal ideations and does not present with any other emotional, behavioral or mental health complaints. Status: Patient is not a legal service specialist or dependent. Transition of care: patient was not received from another setting of care. 13:56 Acuity: HALEIGH Level 4 mlb1 13:56 Method Of Arrival: Walkin/Carried/Asstd mlb1 Triage Assessment: 13:59 General: Appears in no apparent distress, Behavior is appropriate for age, cooperative. mlb1 Pain: Location: coccyx, low back area Pain currently is 9 out of 10 on a pain scale. HIV screening NA for this visit Offered previously. 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 Carafate 1 gram Oral tab as needed 2. Protonix 40 mg Oral TbEC 1 tab once daily 3. Prilosec 20 mg Oral cpDR 1 cap once daily - PMHx: Anxiety; Chronic Back pain; Depression; PTSD; - PSHx: recent stomach surgery to repair hole from gastric bypass surgery; Gastric Bypass; Appendectomy; Cholecystectomy; back surgery x2; left knee surgery; ; Hysterectomy; - Social history: Smoking status: Patient states was never smoker of tobacco. No barriers to communication noted, The patient speaks fluent Italian, Speaks appropriately for age. - Family history: Not pertinent. - : The pt / caregiver states he / she is not on anticoagulants. Home medication list is obtained from the patient. - Exposure Risk Screening:: None identified. Screenin:00 Screening information is obtained from the patient. mk4 Assessment: 15:00 General: Appears in no apparent distress, Behavior is cooperative, pt ambulated to Xray mk4 smiling and chatting with solid waste technician. Respiratory: Airway is patent Respiratory effort is even, unlabored, Respiratory pattern is regular. Derm: Skin is intact, is healthy with good turgor, Skin is pink, warm & dry. Musculoskeletal: Circulation, motion, and sensation intact. Vital Signs: 13:49 BP 134 / 73; Pulse 91; Resp 18; Temp 98.9(O); Pulse Ox 100% on R/A; Weight 72.57 kg elp (R); Height 5 ft. 8 in. (172.72 cm) (R); Pain 10/10; 15:53 BP 107 / 68; Pulse 76; Resp 16; Temp 98.1(T); Pulse Ox 98% on R/A; Pain 10/10; dem1 13:49 Body Mass Index 24.33 (72.57 kg, 172.72 cm) [facility] Vitals: 13:49 Log In Time: September 15, 2016 at 13:30. elp ED Course: 13:48 Patient visited by Estelle Hollingsworth PCA. elp 13:48 Edgardo Pulido is Private Physician. elp 13:48 Patient moved to Waiting elp 13:49 Patient visited by Estelle Hollingsworth PCA. elp 13:49 Patient moved to Pre RCE elp 13:55 Patient visited by Duglas Bedolla RN. mlb1 13:57 Triage Initiated mlb1 14:01 Patient visited by Duglas Bedolla RN. mlb1 14:52 Patient moved to Triage 1 bnb 14:55 [facility] Fagan [facility]C [facility] cc10 14:55 Ade Wetzel MD is Attending Physician. cc10 14:58 Patient visited by Jayden Fagan PA-C. cc10 14:58 Patient visited by Jayden Fagan PA-C. cc10 15:10 Patient moved to PR2 / 26 mk4 15:11 Patient moved to Radiology bnb 15:22 Patient moved to PR2 / 26 gg 15:29 Patient visited by Georgette Giordano RN. mk4 15:53 Patient visited by Link Good. dem1 16:00 [facility] Payment Agreement was scanned into [employer] and attached to record. jp5 16:01 [facility] is Referral Physician. cc10 16:01 [facility] is Referral Physician. cc10 16:15 Patient moved to TR8 dem1 16:27 Sacrum/coccyx Returned. EDMS 16:27 Spine. Lumbosacral, Complete Returned. EDMS 16:52 Patient name changed from Ada\\S\\\\S\\Ayoub\\S\\ to Ada\\S\\Stephanie\\S\\Ayoub. EDMS 0208 10:17 T-Sheet-- Draft Copy was scanned into [employer] and attached to record. gb Administered Medications: 09/15 15:27 Drug: Dilaudid - HYDROmorphone 1 mg [hydromorphone 1 mg/mL injection syringe (1 mL)] 4 Route: IM; Site: left gluteus; 15:55 Follow up: Response: No significant change. 4 Order Results: Radiology Order: Sacrum/coccyx Test: Sacrum/coccyx REASON FOR EXAMINATION: Trauma; Sacrum and coccyx three views:; ; There are bilateral laminectomies at L4-L5. There is surgical fusion of L3, L4,; L5 and S1. There is a disc prosthesis and L5 S1.; ; There is no displacement or fracture of the surgical hardware. The sacroiliac; articulations are unremarkable. The sacral ala and foramen are unremarkable.; ; On the lateral view there is question of a nondisplaced fracture of the fifth; sacral segment. This should be correlated with clinical point tenderness. MRI; or CT might be considered depending on clinical findings.; ; Surgical staple lines are noted in the pelvis bilaterally.; ; Impression:; ; Questionable nondisplaced fracture of the fifth sacral segment. Correlation with; clinical point tenderness recommended. Consider CT or MRI for confirmation.; ; ; Signed by; J Carlos Singh MD 09/15/2016 03:51 P; Radiology Order: Spine. Lumbosacral, Complete Test: Spine. Lumbosacral, Complete REASON FOR EXAMINATION: Trauma; Lumbar spine series: Five views:; ; History: Injury in a fall.; ; Comparison study is from 03/01/2015.; ; Findings: The patient is status post transpedicular screw fixation bandar fusion; bilaterally from C3-S1. Anterior screw fixation is seen at the L5-S1 disc. These; postsurgical changes are stable from the prior study. There is straightening of; the normal lumbar lordosis. Lumbar vertebral body heights are preserved. No; malalignment is seen. No fracture or collapse is seen. Pedicles and posterior; elements are intact. Sacrum SI joints are intact. There are clips in right; upper quadrant of the abdomen.; ; Impression:; ; Status post laminectomy and fusion L2-S1. No traumatic abnormality noted.; Straightening.; ; ; Signed by; Dru Dumont MD 09/15/2016 04:22 P; Outcome: 16:01 Discharge ordered by Provider. cc10 16:18 Patient left the ED. mk4 Signatures: Dispatcher MedHost EDMS Carolyn Perez, Rich Reg gb Duglas Bedolla, RN RN mlb1 Ra Simms Demeishia dem1 Estelle Hollingsworth, SIGNAL INSPECTOR SIGNAL INSPECTOR Georgette Obrien RN RN mk4 Jayden Fagan, PA-C PA-C cc10 Kim Ferguson jp5 Yuliya Crowley, SIGNAL INSPECTOR SIGNAL INSPECTOR bnb Chart Complete MTDD
== END 2016-09-15 16:18 | disposition home or self-care (01) ==
LOC: M ED 13:47
DX: M54.5 Low back pain (principal); F41.9 Anxiety disorder, unspecified; F32.9 Major depressive disorder, single episode, unspecified; F43.10 Post-traumatic stress disorder, unspecified; Z98.84 Bariatric surgery status; Z79.899 Other long term (current) drug therapy; Z91.030 Bee allergy status; Z88.8 Allergy status to other drugs, medicaments and biological substances
CPT/HCPCS: 72110; 72220; 96372; 99283; J1170

== ENCOUNTER 2016-09-30 20:58 | Emergency (ER) | payer MEDICARE, MEDICAID ==
[2016-09-30] MEDS ORDERED: MORPHINE 4 MG/ML 1ML SYRINGE As Ordered ONE (22:12)
[2016-09-30] MEDS ORDERED: ONDANSETRON 4MG/2ML VIAL (J2405) As Ordered ONE (22:13)
[2016-09-30] MEDS ORDERED: KETOROLAC 30 MG/ML VIAL (J1885) As Ordered ONE (23:18)
[2016-09-30 23:22] LABS: ALBUMIN 3.5 GM/DL (3.2-5.2); ALBUMIN/GLOBULIN RATIO 0.76 (1.00-1.93); ALKALINE PHOSPHATASE 85 U/L (45-117); ALT/SGPT 15 U/L (12-78); AMYLASE 87 U/L (25-115); ANION GAP 8 MEQ/L (8-16); AST/SGOT 15 U/L (15-37); BILIRUBIN,DIRECT < 0.1 MG/DL (0.0-0.2); BILIRUBIN,TOTAL 0.5 MG/DL (0.2-1.0); BLOOD UREA NITROGEN 17 MG/DL (7-18); CALCIUM LEVEL 8.6 MG/DL (8.5-10.1); CARBON DIOXIDE LEVEL 25 MEQ/L (21-32); CHLORIDE LEVEL 108 MEQ/L (98-107); CREATININE FOR GFR 0.73 MG/DL (0.55-1.02); GLOMERULAR FILTRATION RATE > 60.0 (>60); GLUCOSE, FASTING 78 MG/DL (70-105); POTASSIUM SERUM 3.9 MEQ/L (3.5-5.1); SODIUM LEVEL 141 MEQ/L (136-145); TOTAL PROTEIN 8.1 GM/DL (6.4-8.2)
[2016-09-30 23:25] LABS: BASO # 0.1 K/mm3 (0.0-0.2); BASO % 0.6 % (0.0-1.0); EOS # 0.1 K/mm3 (0.0-0.50); EOS % 1.3 % (0.0-3.0); LARGE UNSTAINED CELL # 0.4 K/mm3 (0.0-0.4); LARGE UNSTAINED CELL % 3.9 % (0.0-4.0); LYMPH # 3.4 K/mm3 (1.5-4.5); LYMPH % 34.3 % (24.0-44.0); MEAN CORPUSCULAR HEMOGLOBIN 26.6 pg (27.0-33.0); MEAN CORPUSCULAR HGB CONC 31.9 g/dl (32.0-36.5); MEAN CORPUSCULAR VOLUME 83.4 fl (80.0-96.0); MONO # 0.6 K/mm3 (0.0-0.8); MONO % 5.9 % (0.0-5.0); NEUTROPHILS # 5.3 K/mm3 (1.8-7.7); PLATELET COUNT, AUTOMATED 337 k/mm3 (150-450); RED CELL DISTRIBUTION WIDTH 14.3 % (11.5-14.5); WHITE BLOOD COUNT 9.8 K/mm3 (4.0-10.0)
[2016-09-30] MEDS ORDERED: GASTROGRAFIN SOLUTION 30ML (Q9963) As Ordered ONE (23:48)
[2016-10-01] MEDS ORDERED: ISOVUE-370 76% 100ML VIAL (Q9967) As Ordered ONE (00:02)
[2016-10-01] MEDS ORDERED: METOCLOPRAMIDE INJ 10MG/2ML VIAL (J2765) As Ordered ONE (01:03)
[2016-10-01] MEDS ORDERED: diphenhydrAMINE INJ 50MG/ML VIAL (J1200) As Ordered ONE (01:03)
--- NOTE | 2016-10-01 01:10 | REPUSA ---
CLINICAL HISTORY: Abdominal pain. TECHNIQUE: Multiple axial, sagittal and coronal CT images were obtained through the abdomen and pelvi s after administration of intravenous contrast material. Images were obtained before and after IV con trast administration. COMMENTS: Comparison is made to the prior exam performed on 06/20/2016. The liver is of uniform attenuation without mass or defect. There is no intra or extrahepatic biliary ductal dilatation. The spleen is normal. The gallbladder is within normal limits. The pancreas is of normal contour and attenuation characteristics. There is no evidence of adrenal mass. Both kidneys demonstrate prompt and equal nephrograms. The kidneys are normal in size, shape and conf iguration. There is no evidence of renal or ureteral mass. No renal or ureteral calculi are identifie d. There is no hydroureter or hydronephrosis. No evidence for appendicitis. There is no bowel wall thickening. No evidence for small or large sedrick l obstruction. There is no evidence of abdominal ascites or lymphadenopathy. Gastric bypass surgery. There is no evidence of intrinsic or extrinsic bladder mass. There is no pelvic ascites or lymphadeno diamond. Moderate-sized fecal stasis suggestive of constipation. Images of the lung bases show no evidence of pleural or parenchymal mass. There are no pleural effusi ons. The bony structures are free of lytic or blastic lesions. Unremarkable lumbar metallic screws. IMPRESSION: Unchanged moderate constipation. No evidence of acute abdominal or pelvic pathology. Thank you for your kind referral of this patient.
[2016-10-01] MEDS ORDERED: MAGNESIUM CITRATE 300 ML BTL As Ordered ONE (01:19)
--- NOTE | 2016-10-01 01:47 | EDDOCDS ---
Physician Documentation [facility] Name: Ada Ayoub Age: 36 yrs Sex: Female : 1980 Arrival Date: 09/30/2016 Time: 20:58 Bed I3 / M3 Private MD: NO PRIMARY PHYSICIAN, . Disposition: 10/01/16 01:16 Discharged to Home/Self Care. Impression: Constipation, Abdominal and pelvic pain - Chronic, generalized. - Condition is Stable. - Discharge Instructions: Constipation, Adult. - Medication Reconciliation form. - Follow up: Private Physician; When: Call to arrange an appointment; Reason: Wound/Symptom Recheck, Recheck today's complaints, Worsening of conditions, Continuance of care. - Problem is chronic. - Symptoms have improved. Historical: - Allergies: Amitriptyline; Bees; Maxalt ("made me go unconscious"); - Home Meds: 1. Carafate 1 gram Oral tab as needed 2. Protonix 40 mg Oral TbEC 1 tab once daily 3. Prilosec 20 mg Oral cpDR 1 cap once daily - PMHx: Anxiety; Chronic Back pain; Depression; PTSD; - PSHx: Gastric Bypass; Appendectomy; Hysterectomy; Cholecystectomy; - Social history: Smoking status: Patient states former smoker of tobacco. No barriers to communication noted, The patient speaks fluent Thai. - Family history: Not pertinent. - : The pt / caregiver states he / she is not on anticoagulants. Home medication list is obtained from the patient. - Exposure Risk Screening:: None identified. 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 8 in. (172.72 cm); 10/01 01:28 BP 127 / 75; Pulse 76; Resp 18; Temp 97.5; Pulse Ox 99% ; Pain 8/10; ajs 09/30 21:01 Body Mass Index 24.33 (72.57 kg, 172.72 cm) elp MDM: 09/30 21:36 Financial registration complete. gb 21:39 [facility] Payment Agreement was scanned into [employer] and attached to record. gb 22:02 Undress patient appropriately for examination ordered. ck7 22:02 IV Saline Lock ordered. ck7 22:02 NS 0.9% 1000 ml IV at bolus once ordered. ck7 22:02 morphine 4 mg IVP once ordered. ck7 22:02 Ondansetron 4 mg IVP once ordered. ck7 22:03 Amylase Ordered. EDMS 22:03 Basic Metabolic Profile Ordered. EDMS 22:03 CBC with Diff Ordered. EDMS 22:03 Lipase Ordered. EDMS 22:03 Liver Profile Ordered. EDMS 22:03 Urinalysis Ordered. EDMS 22:03 Urine Culture Ordered. EDMS 22:04 NOTHING BY MOUTH+DIET ordered. EDMS 23:14 ketorolac 30 mg IVP once ordered. ck7 23:28 Basic Metabolic Profile Reviewed. cc10 23:28 Liver Profile Reviewed. cc10 23:28 Urinalysis Reviewed. cc10 23:28 Amylase Reviewed. cc10 23:28 Lipase Reviewed. cc10 23:37 CBC with Diff Reviewed. ck7 23:38 CT ABD & PELVIS: IV and Oral Contrast Ordered. EDMS 23:48 Diatrizoate Meglumine & Sodium Liquid 10 ml PO once; mix in 290cc of water; 1st cup at nn1 2355, 2nd at 0025 ordered. 10/01 00:57 diphenhydrAMINE 50 mg IVP once ordered. cc10 00:57 Metoclopramide 10 mg IV at 40 mg/hr once over 15 mins ordered. cc10 01:16 Magnesium Citrate Liquid 300 ml PO once; Dispense home with pt. ordered. cc10 Administered Medications: 09/30 22:53 Drug: NS 0.9% 1000 ml [sodium chloride 0.9 % intravenous solution] Route: IV; Rate: ms18 bolus; Site: right forearm; 10/01 00:52 Follow up: IV Status: Completed infusion; IV Intake: 1000ml nn1 09/30 22:53 Drug: morphine 4 mg [morphine 4 mg/mL intravenous cartridge (1 mL)] Route: IVP; Site: ms18 right forearm; 22:53 Drug: Ondansetron 4 mg Route: IVP; Site: right forearm; ms18 23:21 Drug: ketorolac 30 mg [ketorolac 30 mg/mL (1 mL) injection solution (1 mL)] Route: IVP; js15 Site: right forearm; 23:54 Not Given (Patient Refused): Diatrizoate Meglumine & Sodium Liquid 10 ml PO once; mix nn1 in 290cc of water; 1st cup at 2355, 2nd at 0025 10/01 01:10 Drug: Metoclopramide 10 mg [metoclopramide 5 mg/mL injection solution] Route: IV; Rate: nn1 40 mg/hr; Infused Over: 15 mins; Site: right forearm; 01:11 Drug: diphenhydrAMINE 50 mg [diphenhydramine 50 mg/mL injection solution (1 mL)] Route: nn1 IVP; Site: right forearm; 01:44 Drug: Magnesium Citrate 300 ml [magnesium citrate oral solution (300 mL)] Route: PO; js15 Signatures: Dispatcher [employer] EDMS Carolyn Perez, Reg Reg gb Jordy Zhao, RPA-C [id number] Jayden Fagan, PA-C PA-C cc10 Yelitza Stinson RN RN js15 Marc DaiRN RN nn1 Mary Herrera,GELY RN tm5 Manuela Posada RN ms18 The chart was reviewed and I authenticate all verbal orders and agree with the evaluation and treatment provided.Attachments: 09/30 21:39 [facility] Payment Agreement gb MTDD
--- NOTE | 2016-10-01 01:47 | EDDOCDS ---
Nurse's Notes [facility] Name: Ada Ayoub Age: 36 yrs Sex: Female : 1980 Arrival Date: 09/30/2016 Time: 20:58 Bed I3 / M3 Private MD: NO PRIMARY PHYSICIAN, . Diagnosis: Constipation;Abdominal and pelvic pain-Chronic, generalized Presentation: 09/30 21:02 Presenting complaint: Patient states: per pt severe abdominal pain that radiates into tm5 her shoulders & back, History of gastric bypass, denies fevers at home. Risk factors: the patient reports no vaginal bleeding. Adult Sepsis Screening: The patient does not have new or worsening altered mentation. Patient's respiratory rate is less than 22. Systolic blood pressure is greater than 100. Patient has a qSOFA score of 0- Negative Sepsis Screen. Suicide/Homicide risk assessment- the patient denies having any suicidal and/or homicidal ideations and does not present with any other emotional, behavioral or mental health complaints. 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 Transition of care: patient was not received from another setting of care. 21:02 Acuity: HALEIGH Level 3 tm5 21:02 Method Of Arrival: Walkin/Carried/Asstd tm5 Triage Assessment: 21:03 General: Appears in no apparent distress, Behavior is appropriate for age, cooperative. tm5 Pain: Location: abdomen Pain currently is 10 out of 10 on a pain scale. Pt Declines HIV testing. Neurological: Level of Consciousness is awake, alert, Oriented to person, place, time. Respiratory: Airway is patent Respiratory effort is even, unlabored, Respiratory pattern is regular, symmetrical. GI: Abdomen is flat, non- distended Reports nausea, vomiting. Derm: Skin is pink, warm & dry. 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 Carafate 1 gram Oral tab as needed 2. Protonix 40 mg Oral TbEC 1 tab once daily 3. Prilosec 20 mg Oral cpDR 1 cap once daily - PMHx: Anxiety; Chronic Back pain; Depression; PTSD; - PSHx: Gastric Bypass; Appendectomy; Hysterectomy; Cholecystectomy; - Social history: Smoking status: Patient states former smoker of tobacco. No barriers to communication noted, The patient speaks fluent Brazilian. - Family history: Not pertinent. - : The pt / caregiver states he / she is not on anticoagulants. Home medication list is obtained from the patient. - Exposure Risk Screening:: None identified. Screenin:05 Screening information is obtained from the patient. Fall risk: No risks identified. tm5 Assistance ADL's: requires no assistance with activities of daily living. Abuse/DV Screen: The patient / caregiver reports he/she is: not in a situation that causes fear, pain or injury. Nutritional screening: No deficits noted. Advance Directives: Currently, there is a health care proxy, REINAL[facility] PT'S . home support is adequate. Assessment: 21:41 Adult Sepsis Screening: The patient does not have new or worsening altered mentation. lf1 Patient's respiratory rate is less than 22. Systolic blood pressure is greater than 100. Patient has a qSOFA score of 0- Negative Sepsis Screen. General: Appears uncomfortable, Behavior is fussy. General: Last ate 3 hours ago and vomited after, states she only had a few bites of a tuna sandwich and gatorade. Pain: Location: abdomen Pain currently is 10 out of 10 on a pain scale. Neurological: Level of Consciousness is awake, alert. EENT: No deficits noted. Cardiovascular: Chest pain is denied. Respiratory: Respiratory effort is even, unlabored. GI: Abdomen is Pt reports that she is more bloated than usual Abd is tender to palpation X 4 quads. : Denies burning with urination, urinary frequency. Derm: Skin is normal. 22:48 General: Appears uncomfortable, Behavior is fussy. Pain: Location: abdomen Pain nn1 currently is 10 out of 10 on a pain scale. Quality of pain is described as crampy, sharp, shooting, Pain began 3 hours ago. Neurological: Level of Consciousness is awake, alert, obeys commands. GI: Abdomen is distended, Bowel sounds present X 4 quads. Abd is tender to palpation X 4 quads. Reports bloating, lower abdominal pain, upper abd pain, nausea, vomiting. : Denies burning with urination, discharge, urinary frequency. Derm: Skin is pink, warm & dry. 23:21 General: Appears uncomfortable, Behavior is cooperative, restless. Pain: Location: js15 abdomen Pain currently is 10 out of 10 on a pain scale. Neurological: Level of Consciousness is awake, alert, obeys commands, Oriented to person, place, time. Respiratory: Airway is patent Respiratory effort is even, unlabored, Respiratory pattern is regular, symmetrical. Derm: Skin is normal. 23:55 General: Patient refused gastrografin, states it makes her vomit. Provider notified. . nn1 10/01 00:03 General: Appears uncomfortable, Patient aware of plan of care at this time. nn1 00:15 General: Patient taken to CT, tolerated procedure well. Patients pain unrelieved by nn1 medications, provider aware.. 01:12 General: Appears uncomfortable, Behavior is appropriate for age, cooperative, Patient nn1 medicated per providers orders. . Respiratory: No deficits noted. Derm: Skin is pink, warm & dry. Vital Signs: 09/30 21:01 BP 128 / 69; Pulse 82; Resp 18; Temp 97.3; Pulse Ox 100% ; Weight 72.57 kg; Height 5 elp ft. 8 in. (172.72 cm); 10/01 01:28 BP 127 / 75; Pulse 76; Resp 18; Temp 97.5; Pulse Ox 99% ; Pain 8/10; ajs 09/30 21:01 Body Mass Index 24.33 (72.57 kg, 172.72 cm) [facility] Vitals: 09/30 21:01 Log In Time: September 30, 2016 at 20:00. [facility] ED Course: 21:00 Patient visited by Estelle Hollingsworth PCA. elp 21:00 NO PRIMARY PHYSICIAN, . is Private Physician. elp 21:00 Patient moved to Waiting elp 21:01 Patient visited by Estelle Hollingsworth PCA. elp 21:01 Patient moved to Pre RCE elp 21:03 Triage Initiated tm5 21:05 Patient moved to Triage 2 tm5 21:26 [facility] ck7 21:26 Minerva Lynne MD is Attending Physician. ck7 21:26 Patient visited by Jordy Zhao RPA-C. ck7 21:39 [facility] Payment Agreement was scanned into [employer] and attached to record. gb 21:45 Patient visited by Annalise Rodrigez RN. lf1 22:04 Patient moved to I3 / M3 ttb 22:15 Patient visited by Jordy Zhao RPA-C. ck7 22:47 Patient visited by Jordy Zhao RPA-C. ck7 22:53 Amylase Sent. ms18 22:53 Basic Metabolic Profile Sent. ms18 22:53 CBC with Diff Sent. ms18 22:53 Lipase Sent. ms18 22:53 Liver Profile Sent. ms18 22:56 Inserted saline lock: 20 gauge in right forearm and blood collected. The patient nn1 tolerated the procedure well. 23:06 Urinalysis Sent. nn1 23:21 Patient visited by Yelitza Stinson RN. js15 23:57 Patient visited by Jordy Zhao RPA-C. ck7 10/01 00:00 The patient / caregiver is instructed regarding the plan of care and ED course. js15 00:56 PHCP role handed off by Jordy Zhao RPA-C cc10 00:56 Jayden Fagan PA-C is PHCP. cc10 01:12 Patient visited by Marc Dai RN. nn1 01:28 Patient visited by Ada Stein. ajs 01:31 CT ABD & PELVIS: IV and Oral Contrast Returned. EDMS 01:45 Discontinued IV lock intact, bleeding controlled, pressure dressing applied, No js15 redness/swelling at site. No procedures done that require assistance. Administered Medications: 09/30 22:53 Drug: NS 0.9% 1000 ml [sodium chloride 0.9 % intravenous solution] Route: IV; Rate: ms18 bolus; Site: right forearm; 10/01 00:52 Follow up: IV Status: Completed infusion; IV Intake: 1000ml nn1 09/30 22:53 Drug: morphine 4 mg [morphine 4 mg/mL intravenous cartridge (1 mL)] Route: IVP; Site: ms18 right forearm; 22:53 Drug: Ondansetron 4 mg Route: IVP; Site: right forearm; ms18 23:21 Drug: ketorolac 30 mg [ketorolac 30 mg/mL (1 mL) injection solution (1 mL)] Route: IVP; js15 Site: right forearm; 23:54 Not Given (Patient Refused): Diatrizoate Meglumine & Sodium Liquid 10 ml PO once; mix nn1 in 290cc of water; 1st cup at 2355, 2nd at 0025 10/01 01:10 Drug: Metoclopramide 10 mg [metoclopramide 5 mg/mL injection solution] Route: IV; Rate: nn1 40 mg/hr; Infused Over: 15 mins; Site: right forearm; 01:11 Drug: diphenhydrAMINE 50 mg [diphenhydramine 50 mg/mL injection solution (1 mL)] Route: nn1 IVP; Site: right forearm; 01:44 Drug: Magnesium Citrate 300 ml [magnesium citrate oral solution (300 mL)] Route: PO; js15 Intake: 00:52 IV: 1000.00ml; Total: 1000.00ml. nn1 00:53 IV: 1000.00ml (NS); Total: 2000.00ml. nn1 Order Results: Lab Order: Amylase; SPEC'M 09/30/16 22:47 Test: AMYLASE; Value: 87; Range: 25-115; Units: U/L; Status: F Lab Order: Basic Metabolic Profile; SPEC'M 09/30/16 22:47 Test: GLUCOSE, FASTING; Value: 78; Range: 70-105; Units: MG/DL; Status: F Test: BLOOD UREA NITROGEN; Value: 17; Range: 7-18; Units: MG/DL; Status: F Test: CREATININE FOR GFR; Value: 0.73; Range: 0.55-1.02; Units: MG/DL; Status: F Test: GLOMERULAR FILTRATION RATE; Value: > 60.0; Range: >60; Status: F Test: SODIUM LEVEL; Value: 141; Range: 136-145; Units: MEQ/L; Status: F Test: POTASSIUM SERUM; Value: 3.9; Range: 3.5-5.1; Units: MEQ/L; Status: F Test: CHLORIDE LEVEL; Value: 108; Range: 98-107; Abnormal: Above high normal; Units: MEQ/L; Status: F Test: CARBON DIOXIDE LEVEL; Value: 25; Range: 21-32; Units: MEQ/L; Status: F Test: ANION GAP; Value: 8; Range: 8-16; Units: MEQ/L; Status: F Test: CALCIUM LEVEL; Value: 8.6; Range: 8.5-10.1; Units: MG/DL; Status: F Test Note: ; Units are mL/min/1.73 m2 Chronic Kidney Disease Staging per NKF: Stage I & II GFR >=60 Normal to Mildly Decreased Stage III GFR 30-59 Moderately Decreased Stage IV GFR 15-29 Severely Decreased Stage V GFR <15 Very Little GFR Left ESRD GFR <15 on JUDICIAL REGISTRAR Lab Order: CBC with Diff; SPEC'M 09/30/16 22:47 Test: WHITE BLOOD COUNT; Value: 9.8; Range: 4.0-10.0; Units: K/mm3; Status: F Test: RED BLOOD COUNT; Value: 3.94; Range: 4.00-5.40; Abnormal: Below low normal; Units: M/mm3; Status: F Test: HEMOGLOBIN; Value: 10.5; Range: 12.0-16.0; Abnormal: Below low normal; Units: g/dl; Status: F Test: HEMATOCRIT; Value: 32.9; Range: 36.0-47.0; Abnormal: Below low normal; Units: %; Status: F Test: MEAN CORPUSCULAR VOLUME; Value: 83.4; Range: 80.0-96.0; Units: fl; Status: F Test: MEAN CORPUSCULAR HEMOGLOBIN; Value: 26.6; Range: 27.0-33.0; Abnormal: Below low normal; Units: pg; Status: F Test: MEAN CORPUSCULAR HGB CONC; Value: 31.9; Range: 32.0-36.5; Abnormal: Below low normal; Units: g/dl; Status: F Test: RED CELL DISTRIBUTION WIDTH; Value: 14.3; Range: 11.5-14.5; Units: %; Status: F Test: PLATELET COUNT, AUTOMATED; Value: 337; Range: 150-450; Units: k/mm3; Status: F Test: NEUTROPHILS %; Value: 54.0; Range: 36.0-66.0; Units: %; Status: F Test: LYMPH %; Value: 34.3; Range: 24.0-44.0; Units: %; Status: F Test: MONO %; Value: 5.9; Range: 0.0-5.0; Abnormal: Above high normal; Units: %; Status: F Test: EOS %; Value: 1.3; Range: 0.0-3.0; Units: %; Status: F Test: BASO %; Value: 0.6; Range: 0.0-1.0; Units: %; Status: F Test: LARGE UNSTAINED CELL %; Value: 3.9; Range: 0.0-4.0; Units: %; Status: F Test: NEUTROPHILS #; Value: 5.3; Range: 1.8-7.7; Units: K/mm3; Status: F Test: LYMPH #; Value: 3.4; Range: 1.5-4.5; Units: K/mm3; Status: F Test: MONO #; Value: 0.6; Range: 0.0-0.8; Units: K/mm3; Status: F Test: EOS #; Value: 0.1; Range: 0.0-0.50; Units: K/mm3; Status: F Test: BASO #; Value: 0.1; Range: 0.0-0.2; Units: K/mm3; Status: F Test: LARGE UNSTAINED CELL #; Value: 0.4; Range: 0.0-0.4; Units: K/mm3; Status: F Lab Order: Lipase; [facility] 09/30/16 22:47 Test: LIPASE; Value: 168; Range: 73-393; Units: U/L; Status: F Lab Order: Liver Profile; [facility] 09/30/16 22:47 Test: AST/SGOT; Value: 15; Range: 15-37; Units: U/L; Status: F Test: ALT/SGPT; Value: 15; Range: 12-78; Units: U/L; Status: F Test: ALKALINE PHOSPHATASE; Value: 85; Range: 45-117; Units: U/L; Status: F Test: BILIRUBIN,TOTAL; Value: 0.5; Range: 0.2-1.0; Units: MG/DL; Status: F Test: BILIRUBIN,DIRECT; Value: < 0.1; Range: 0.0-0.2; Units: MG/DL; Status: F Test: TOTAL PROTEIN; Value: 8.1; Range: 6.4-8.2; Units: GM/DL; Status: F Test: ALBUMIN; Value: 3.5; Range: 3.2-5.2; Units: GM/DL; Status: F Test: ALBUMIN/GLOBULIN RATIO; Value: 0.76; Range: 1.00-1.93; Abnormal: Below low normal; Status: F Lab Order: Urinalysis; SPEC'M 09/30/16 22:47 Test: APPEARANCE, URINE; Value: CLEAR; Range: CLEAR; Status: F Test: COLOR, URINE; Value: YELLOW; Range: YELLOW; Status: F Test: PH,URINE; Value: 7.0; Range: 5.0-9.0; Units: UNITS; Status: F Test: SPECIFIC GRAVITY URINE AUTO; Value: 1.024; Range: 1.002-1.035; Status: F Test: PROTEIN, URINE AUTO; Value: NEGATIVE; Range: NEGATIVE; Units: mg/dL; Status: F Test: GLUCOSE, URINE (UA) AUTO; Value: NEGATIVE; Range: NEGATIVE; Units: mg/dL; Status: F Test: KETONE, URINE AUTO; Value: NEGATIVE; Range: NEGATIVE; Units: mg/dL; Status: F Test: UROBILINOGEN, URINE AUTO; Value: 0.2; Range: 0.0-2.0; Units: mg/dL; Status: F Test: BILIRUBIN, URINE AUTO; Value: NEGATIVE; Range: NEGATIVE; Status: F Test: NITRITE, URINE AUTO; Value: NEGATIVE; Range: NEGATIVE; Status: F Test: LEUKOCYTE ESTERASE, URINE AUTO; Value: NEGATIVE; Range: NEGATIVE; Status: F Test: BLOOD, URINE BLOOD; Value: NEGATIVE; Range: NEGATIVE; Status: F Test: WBC, URINE AUTO; Value: 1; Range: 0-3; Units: /HPF; Status: F Test: RBC, URINE AUTO; Value: 2; Range: 0-3; Units: /HPF; Status: F Test: BACTERIA, URINE AUTO; Value: 1+; Range: NEGATIVE; Abnormal: Above high normal; Status: F Test: SQUAMOUS EPITHELIAL CELL UR AU; Value: 1; Range: 0-6; Units: /HPF; Status: F Test: HYALINE CAST, URINE AUTO; Value: 0; Range: 0-1; Units: /LPF; Status: F Radiology Order: CT ABD & PELVIS: IV and Oral Contrast Test: CT ABD & PELVIS: IV and Oral Contrast REASON FOR EXAMINATION: Abdomen Pain; ; CLINICAL HISTORY: Abdominal pain.; TECHNIQUE: Multiple axial, sagittal and coronal CT images were obtained through the abdomen and pelvi; s after administration of intravenous contrast material. Images were obtained before and after IV con; trast administration.; COMMENTS:; Comparison is made to the prior exam performed on 06/20/2016.; The liver is of uniform attenuation without mass or defect. There is no intra or extrahepatic biliary; ductal dilatation. The spleen is normal. The gallbladder is within normal limits. The pancreas is of; normal contour and attenuation characteristics. There is no evidence of adrenal mass.; Both kidneys demonstrate prompt and equal nephrograms. The kidneys are normal in size, shape and conf; iguration. There is no evidence of renal or ureteral mass. No renal or ureteral calculi are identifie; d. There is no hydroureter or hydronephrosis.; No evidence for appendicitis. There is no bowel wall thickening. No evidence for small or large sedrick; l obstruction. There is no evidence of abdominal ascites or lymphadenopathy. Gastric bypass surgery.; There is no evidence of intrinsic or extrinsic bladder mass. There is no pelvic ascites or lymphadeno; diamond. Moderate-sized fecal stasis suggestive of constipation.; Images of the lung bases show no evidence of pleural or parenchymal mass. There are no pleural effusi; ons.; The bony structures are free of lytic or blastic lesions. Unremarkable lumbar metallic screws.; IMPRESSION:; Unchanged moderate constipation.; No evidence of acute abdominal or pelvic pathology.; Thank you for your kind referral of this patient.; ; Outcome: 01:16 Discharge ordered by Provider. cc10 01:45 Discharge Assessment: Patient awake, alert and oriented x 3. No cognitive and/or js15 functional deficits noted. Patient verbalized understanding of disposition instructions. patient administered narcotics - yes. Pt provided with safe discharge. The following High Risk Discharge criteria are identified: None. Discharged to home ambulatory, with significant other, medicaid cab called. Condition: stable. Discharge instructions given to patient, Instructed on discharge instructions, follow up and referral plans. medication usage, diet, hydration Demonstrated understanding of instructions, medications, Pt was receptive of discharge instructions/ teaching. CT Study completed. Property sent home with patient. 01:46 Patient left the ED. js15 Signatures: Dispatcher [employer] EDCarolyn Nova, Reg Reg gb Rodrigez,Annalise,RN RN lf1 Ada Stein Christopher, RPA-C RPA-Cck7 Radha Lozoya, RN RN ttb Darrick, Estelle, SLUBBER RUNNER SLUBBER RUNNER elp Jayden Fagan, PA-C PA-C cc10 Manuela Posada,RN RN ms18 Yelitza Stinson,RN RN js15 Marc Dai,RN RN nn1 Mary Herrera,RN RN tm5 MTDD
--- NOTE | 2016-10-03 02:47 | EDDOCDS ---
Physician Documentation [facility] Name: Ada Ayoub Age: 36 yrs Sex: Female : 1980 Arrival Date: 09/30/2016 Time: 20:58 Bed I3 / M3 Private MD: NO PRIMARY PHYSICIAN, . Disposition: 10/01/16 01:16 Discharged to Home/Self Care. Impression: Constipation, Abdominal and pelvic pain - Chronic, generalized. - Condition is Stable. - Discharge Instructions: Constipation, Adult. - Medication Reconciliation form. - Follow up: Private Physician; When: Call to arrange an appointment; Reason: Wound/Symptom Recheck, Recheck today's complaints, Worsening of conditions, Continuance of care. - Problem is chronic. - Symptoms have improved. Historical: - Allergies: Amitriptyline; Bees; Maxalt ("made me go unconscious"); - Home Meds: 1. Carafate 1 gram Oral tab as needed 2. Protonix 40 mg Oral TbEC 1 tab once daily 3. Prilosec 20 mg Oral cpDR 1 cap once daily - PMHx: Anxiety; Chronic Back pain; Depression; PTSD; - PSHx: Gastric Bypass; Appendectomy; Hysterectomy; Cholecystectomy; - Social history: Smoking status: Patient states former smoker of tobacco. No barriers to communication noted, The patient speaks fluent Fijian. - Family history: Not pertinent. - : The pt / caregiver states he / she is not on anticoagulants. Home medication list is obtained from the patient. - Exposure Risk Screening:: None identified. 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 8 in. (172.72 cm); 10/01 01:28 BP 127 / 75; Pulse 76; Resp 18; Temp 97.5; Pulse Ox 99% ; Pain 8/10; ajs 09/30 21:01 Body Mass Index 24.33 (72.57 kg, 172.72 cm) elp MDM: 09/30 21:36 Financial registration complete. gb 21:39 [facility] Payment Agreement was scanned into [employer] and attached to record. gb 22:02 Undress patient appropriately for examination ordered. ck7 22:02 IV Saline Lock ordered. ck7 22:02 NS 0.9% 1000 ml IV at bolus once ordered. ck7 22:02 morphine 4 mg IVP once ordered. ck7 22:02 Ondansetron 4 mg IVP once ordered. ck7 22:03 Amylase Ordered. EDMS 22:03 Basic Metabolic Profile Ordered. EDMS 22:03 CBC with Diff Ordered. EDMS 22:03 Lipase Ordered. EDMS 22:03 Liver Profile Ordered. EDMS 22:03 Urinalysis Ordered. EDMS 22:03 Urine Culture Ordered. EDMS 22:04 NOTHING BY MOUTH+DIET ordered. EDMS 23:14 ketorolac 30 mg IVP once ordered. ck7 23:28 Basic Metabolic Profile Reviewed. cc10 23:28 Liver Profile Reviewed. cc10 23:28 Urinalysis Reviewed. cc10 23:28 Amylase Reviewed. cc10 23:28 Lipase Reviewed. cc10 23:37 CBC with Diff Reviewed. ck7 23:38 CT ABD & PELVIS: IV and Oral Contrast Ordered. EDMS 23:48 Diatrizoate Meglumine & Sodium Liquid 10 ml PO once; mix in 290cc of water; 1st cup at nn1 2355, 2nd at 0025 ordered. 10/01 00:57 diphenhydrAMINE 50 mg IVP once ordered. cc10 00:57 Metoclopramide 10 mg IV at 40 mg/hr once over 15 mins ordered. cc10 01:16 Magnesium Citrate Liquid 300 ml PO once; Dispense home with pt. ordered. cc10 18:01 T-Sheet-- Draft Copy was scanned into [employer] and attached to record. klr Administered Medications: 09/30 22:53 Drug: NS 0.9% 1000 ml [sodium chloride 0.9 % intravenous solution] Route: IV; Rate: ms18 bolus; Site: right forearm; 10/01 00:52 Follow up: IV Status: Completed infusion; IV Intake: 1000ml nn1 09/30 22:53 Drug: morphine 4 mg [morphine 4 mg/mL intravenous cartridge (1 mL)] Route: IVP; Site: ms18 right forearm; 22:53 Drug: Ondansetron 4 mg Route: IVP; Site: right forearm; ms18 23:21 Drug: ketorolac 30 mg [ketorolac 30 mg/mL (1 mL) injection solution (1 mL)] Route: IVP; js15 Site: right forearm; 23:54 Not Given (Patient Refused): Diatrizoate Meglumine & Sodium Liquid 10 ml PO once; mix nn1 in 290cc of water; 1st cup at 2355, 2nd at 0025 10/01 01:10 Drug: Metoclopramide 10 mg [metoclopramide 5 mg/mL injection solution] Route: IV; Rate: nn1 40 mg/hr; Infused Over: 15 mins; Site: right forearm; 01:11 Drug: diphenhydrAMINE 50 mg [diphenhydramine 50 mg/mL injection solution (1 mL)] Route: nn1 IVP; Site: right forearm; 01:44 Drug: Magnesium Citrate 300 ml [magnesium citrate oral solution (300 mL)] Route: PO; js15 Signatures: Dispatcher [employer] EDMS Carolyn Perez, Reg Reg gb Cece, Jordy, RPA-C [id number] Jayden Fagan PA-C PA-C cc10 Yelitza Stinson,RN RN js15 Marc DaiRN RN nn1 Charisma Jason Tonya, RN RN tm5 Manuela Posada RN ms18 The chart was reviewed and I authenticate all verbal orders and agree with the evaluation and treatment provided.Attachments: 09/30 21:39 [facility] Payment Agreement gb 10/01 18:01 T-Sheet-- Draft Copy klr Chart Complete MTDD
--- NOTE | 2016-10-03 02:47 | EDDOCDS ---
Physician Documentation Name: Ada Ayoub Age: 36 yrs Sex: Female : 1980 Arrival Date: 09/30/2016 Time: 20:58 Bed I3 / M3 Private MD: NO PRIMARY PHYSICIAN, . Disposition: 10/01/16 01:16 Discharged to Home/Self Care. Impression: Constipation, Abdominal and pelvic pain - Chronic, generalized. - Condition is Stable. - Discharge Instructions: Constipation, Adult. - Medication Reconciliation form. - Follow up: Private Physician; When: Call to arrange an appointment; Reason: Wound/Symptom Recheck, Recheck today's complaints, Worsening of conditions, Continuance of care. - Problem is chronic. - Symptoms have improved. Historical: - Allergies: Amitriptyline; Bees; Maxalt ("made me go unconscious"); - Home Meds: 1. Carafate 1 gram Oral tab as needed 2. Protonix 40 mg Oral TbEC 1 tab once daily 3. Prilosec 20 mg Oral cpDR 1 cap once daily - PMHx: Anxiety; Chronic Back pain; Depression; PTSD; - PSHx: Gastric Bypass; Appendectomy; Hysterectomy; Cholecystectomy; - Social history: Smoking status: Patient states former smoker of tobacco. No barriers to communication noted, The patient speaks fluent [place] Verdean. - Family history: Not pertinent. - : The pt / caregiver states he / she is not on anticoagulants. Home medication list is obtained from the patient. - Exposure Risk Screening:: None identified. 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 8 in. (172.72 cm); 10/01 01:28 BP 127 / 75; Pulse 76; Resp 18; Temp 97.5; Pulse Ox 99% ; Pain 8/10; ajs 09/30 21:01 Body Mass Index 24.33 (72.57 kg, 172.72 cm) elp MDM: 09/30 21:36 Financial registration complete. gb 21:39 [facility] Payment Agreement was scanned into [employer] and attached to record. gb 22:02 Undress patient appropriately for examination ordered. ck7 22:02 IV Saline Lock ordered. ck7 22:02 NS 0.9% 1000 ml IV at bolus once ordered. ck7 22:02 morphine 4 mg IVP once ordered. ck7 22:02 Ondansetron 4 mg IVP once ordered. ck7 22:03 Amylase Ordered. EDMS 22:03 Basic Metabolic Profile Ordered. EDMS 22:03 CBC with Diff Ordered. EDMS 22:03 Lipase Ordered. EDMS 22:03 Liver Profile Ordered. EDMS 22:03 Urinalysis Ordered. EDMS 22:03 Urine Culture Ordered. EDMS 22:04 NOTHING BY MOUTH+DIET ordered. EDMS 23:14 ketorolac 30 mg IVP once ordered. ck7 23:28 Basic Metabolic Profile Reviewed. cc10 23:28 Liver Profile Reviewed. cc10 23:28 Urinalysis Reviewed. cc10 23:28 Amylase Reviewed. cc10 23:28 Lipase Reviewed. cc10 23:37 CBC with Diff Reviewed. ck7 23:38 CT ABD & PELVIS: IV and Oral Contrast Ordered. EDMS 23:48 Diatrizoate Meglumine & Sodium Liquid 10 ml PO once; mix in 290cc of water; 1st cup at nn1 2355, 2nd at 0025 ordered. 10/01 00:57 diphenhydrAMINE 50 mg IVP once ordered. cc10 00:57 Metoclopramide 10 mg IV at 40 mg/hr once over 15 mins ordered. cc10 01:16 Magnesium Citrate Liquid 300 ml PO once; Dispense home with pt. ordered. cc10 18:01 T-Sheet-- Draft Copy was scanned into [employer] and attached to record. klr Administered Medications: 09/30 22:53 Drug: NS 0.9% 1000 ml [sodium chloride 0.9 % intravenous solution] Route: IV; Rate: ms18 bolus; Site: right forearm; 10/01 00:52 Follow up: IV Status: Completed infusion; IV Intake: 1000ml nn1 09/30 22:53 Drug: morphine 4 mg [morphine 4 mg/mL intravenous cartridge (1 mL)] Route: IVP; Site: ms18 right forearm; 22:53 Drug: Ondansetron 4 mg Route: IVP; Site: right forearm; ms18 23:21 Drug: ketorolac 30 mg [ketorolac 30 mg/mL (1 mL) injection solution (1 mL)] Route: IVP; js15 Site: right forearm; 23:54 Not Given (Patient Refused): Diatrizoate Meglumine & Sodium Liquid 10 ml PO once; mix nn1 in 290cc of water; 1st cup at 2355, 2nd at 0025 10/01 01:10 Drug: Metoclopramide 10 mg [metoclopramide 5 mg/mL injection solution] Route: IV; Rate: nn1 40 mg/hr; Infused Over: 15 mins; Site: right forearm; 01:11 Drug: diphenhydrAMINE 50 mg [diphenhydramine 50 mg/mL injection solution (1 mL)] Route: nn1 IVP; Site: right forearm; 01:44 Drug: Magnesium Citrate 300 ml [magnesium citrate oral solution (300 mL)] Route: PO; js15 Signatures: Dispatcher [employer] EDMS Carolyn Perez, Reg Reg gb Cece, Jordy, RPA-C [id number] Jayden Fagan PA-C PA-C cc10 Yelitza Stinson,RN RN js15 Marc DaiRN RN nn1 Charisma Jason Tonya, RN RN tm5 Manuela Posada RN ms18 The chart was reviewed and I authenticate all verbal orders and agree with the evaluation and treatment provided.Attachments: 09/30 21:39 [facility] Payment Agreement gb 10/01 18:01 T-Sheet-- Draft Copy klr Chart Complete MTDD
--- NOTE | 2016-10-03 02:48 | EDDOCDS ---
Nurse's Notes [facility] Name: Ada Ayoub Age: 36 yrs Sex: Female : 1980 Arrival Date: 09/30/2016 Time: 20:58 Bed I3 / M3 Private MD: NO PRIMARY PHYSICIAN, . Diagnosis: Constipation;Abdominal and pelvic pain-Chronic, generalized Presentation: 09/30 21:02 Presenting complaint: Patient states: per pt severe abdominal pain that radiates into tm5 her shoulders & back, History of gastric bypass, denies fevers at home. Risk factors: the patient reports no vaginal bleeding. Adult Sepsis Screening: The patient does not have new or worsening altered mentation. Patient's respiratory rate is less than 22. Systolic blood pressure is greater than 100. Patient has a qSOFA score of 0- Negative Sepsis Screen. Suicide/Homicide risk assessment- the patient denies having any suicidal and/or homicidal ideations and does not present with any other emotional, behavioral or mental health complaints. Status: Patient is not a senior administrative services officer or dependent. Transition of care: patient was not received from another setting of care. 21:02 Acuity: HALEIGH Level 3 tm5 21:02 Method Of Arrival: Walkin/Carried/Asstd tm5 Triage Assessment: 21:03 General: Appears in no apparent distress, Behavior is appropriate for age, cooperative. tm5 Pain: Location: abdomen Pain currently is 10 out of 10 on a pain scale. Pt Declines HIV testing. Neurological: Level of Consciousness is awake, alert, Oriented to person, place, time. Respiratory: Airway is patent Respiratory effort is even, unlabored, Respiratory pattern is regular, symmetrical. GI: Abdomen is flat, non- distended Reports nausea, vomiting. Derm: Skin is pink, warm & dry. 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 Carafate 1 gram Oral tab as needed 2. Protonix 40 mg Oral TbEC 1 tab once daily 3. Prilosec 20 mg Oral cpDR 1 cap once daily - PMHx: Anxiety; Chronic Back pain; Depression; PTSD; - PSHx: Gastric Bypass; Appendectomy; Hysterectomy; Cholecystectomy; - Social history: Smoking status: Patient states former smoker of tobacco. No barriers to communication noted, The patient speaks fluent German. - Family history: Not pertinent. - : The pt / caregiver states he / she is not on anticoagulants. Home medication list is obtained from the patient. - Exposure Risk Screening:: None identified. Screenin:05 Screening information is obtained from the patient. Fall risk: No risks identified. tm5 Assistance ADL's: requires no assistance with activities of daily living. Abuse/DV Screen: The patient / caregiver reports he/she is: not in a situation that causes fear, pain or injury. Nutritional screening: No deficits noted. Advance Directives: Currently, there is a health care proxy, RE[facility]'S . home support is adequate. Assessment: 21:41 Adult Sepsis Screening: The patient does not have new or worsening altered mentation. lf1 Patient's respiratory rate is less than 22. Systolic blood pressure is greater than 100. Patient has a qSOFA score of 0- Negative Sepsis Screen. General: Appears uncomfortable, Behavior is fussy. General: Last ate 3 hours ago and vomited after, states she only had a few bites of a tuna sandwich and gatorade. Pain: Location: abdomen Pain currently is 10 out of 10 on a pain scale. Neurological: Level of Consciousness is awake, alert. EENT: No deficits noted. Cardiovascular: Chest pain is denied. Respiratory: Respiratory effort is even, unlabored. GI: Abdomen is Pt reports that she is more bloated than usual Abd is tender to palpation X 4 quads. : Denies burning with urination, urinary frequency. Derm: Skin is normal. 22:48 General: Appears uncomfortable, Behavior is fussy. Pain: Location: abdomen Pain nn1 currently is 10 out of 10 on a pain scale. Quality of pain is described as crampy, sharp, shooting, Pain began 3 hours ago. Neurological: Level of Consciousness is awake, alert, obeys commands. GI: Abdomen is distended, Bowel sounds present X 4 quads. Abd is tender to palpation X 4 quads. Reports bloating, lower abdominal pain, upper abd pain, nausea, vomiting. : Denies burning with urination, discharge, urinary frequency. Derm: Skin is pink, warm & dry. 23:21 General: Appears uncomfortable, Behavior is cooperative, restless. Pain: Location: js15 abdomen Pain currently is 10 out of 10 on a pain scale. Neurological: Level of Consciousness is awake, alert, obeys commands, Oriented to person, place, time. Respiratory: Airway is patent Respiratory effort is even, unlabored, Respiratory pattern is regular, symmetrical. Derm: Skin is normal. 23:55 General: Patient refused gastrografin, states it makes her vomit. Provider notified. . nn1 10/01 00:03 General: Appears uncomfortable, Patient aware of plan of care at this time. nn1 00:15 General: Patient taken to CT, tolerated procedure well. Patients pain unrelieved by nn1 medications, provider aware.. 01:12 General: Appears uncomfortable, Behavior is appropriate for age, cooperative, Patient nn1 medicated per providers orders. . Respiratory: No deficits noted. Derm: Skin is pink, warm & dry. Vital Signs: 09/30 21:01 BP 128 / 69; Pulse 82; Resp 18; Temp 97.3; Pulse Ox 100% ; Weight 72.57 kg; Height 5 elp ft. 8 in. (172.72 cm); 10/01 01:28 BP 127 / 75; Pulse 76; Resp 18; Temp 97.5; Pulse Ox 99% ; Pain 8/10; ajs 09/30 21:01 Body Mass Index 24.33 (72.57 kg, 172.72 cm) [facility] Vitals: 09/30 21:01 Log In Time: September 30, 2016 at 20:00. [facility] ED Course: 21:00 Patient visited by Estelle Hollingsworth PCA. elp 21:00 NO PRIMARY PHYSICIAN, . is Private Physician. elp 21:00 Patient moved to Waiting elp 21:01 Patient visited by Estelle Hollingsworth PCA. elp 21:01 Patient moved to Pre RCE elp 21:03 Triage Initiated tm5 21:05 Patient moved to Triage 2 tm5 21:26 [facility] ck7 21:26 Minerva Lynne MD is Attending Physician. ck7 21:26 Patient visited by Jordy Zhao RPA-C. ck7 21:39 [facility] [place] was scanned into [employer] and attached to record. gb 21:45 Patient visited by Annalise Rodrigez RN. lf1 22:04 Patient moved to I3 / M3 ttb 22:15 Patient visited by Jordy Zhao RPA-C. ck7 22:47 Patient visited by Jordy Zhao RPA-C. ck7 22:53 Amylase Sent. ms18 22:53 Basic Metabolic Profile Sent. ms18 22:53 CBC with Diff Sent. ms18 22:53 Lipase Sent. ms18 22:53 Liver Profile Sent. ms18 22:56 Inserted saline lock: 20 gauge in right forearm and blood collected. The patient nn1 tolerated the procedure well. 23:06 Urinalysis Sent. nn1 23:21 Patient visited by Yelitza Stinson RN. js15 23:57 Patient visited by Jordy Zhao RPA-C. ck7 10/01 00:00 The patient / caregiver is instructed regarding the plan of care and ED course. js15 00:56 PHCP role handed off by Jordy Zhao RPA-C cc10 00:56 Jayden Fagan PA-C is PHCP. cc10 01:12 Patient visited by Marc Dai RN. nn1 01:28 Patient visited by Ada Stein. ajs 01:31 CT ABD & PELVIS: IV and Oral Contrast Returned. EDMS 01:45 Discontinued IV lock intact, bleeding controlled, pressure dressing applied, No js15 redness/swelling at site. No procedures done that require assistance. 18:01 T-Sheet-- Draft Copy was scanned into E[employer]-Apps and attached to record. klr Administered Medications: 09/30 22:53 Drug: NS 0.9% 1000 ml [sodium chloride 0.9 % intravenous solution] Route: IV; Rate: ms18 bolus; Site: right forearm; 10/01 00:52 Follow up: IV Status: Completed infusion; IV Intake: 1000ml nn1 09/30 22:53 Drug: morphine 4 mg [morphine 4 mg/mL intravenous cartridge (1 mL)] Route: IVP; Site: ms18 right forearm; 22:53 Drug: Ondansetron 4 mg Route: IVP; Site: right forearm; ms18 23:21 Drug: ketorolac 30 mg [ketorolac 30 mg/mL (1 mL) injection solution (1 mL)] Route: IVP; js15 Site: right forearm; 23:54 Not Given (Patient Refused): Diatrizoate Meglumine & Sodium Liquid 10 ml PO once; mix nn1 in 290cc of water; 1st cup at 2355, 2nd at 0025 10/01 01:10 Drug: Metoclopramide 10 mg [metoclopramide 5 mg/mL injection solution] Route: IV; Rate: nn1 40 mg/hr; Infused Over: 15 mins; Site: right forearm; 01:11 Drug: diphenhydrAMINE 50 mg [diphenhydramine 50 mg/mL injection solution (1 mL)] Route: nn1 IVP; Site: right forearm; 01:44 Drug: Magnesium Citrate 300 ml [magnesium citrate oral solution (300 mL)] Route: PO; js15 Intake: 00:52 IV: 1000.00ml; Total: 1000.00ml. nn1 00:53 IV: 1000.00ml (NS); Total: 2000.00ml. nn1 Order Results: Lab Order: Amylase; SPEC'M 09/30/16 22:47 Test: AMYLASE; Value: 87; Range: 25-115; Units: U/L; Status: F Lab Order: Basic Metabolic Profile; SPEC'M 09/30/16 22:47 Test: GLUCOSE, FASTING; Value: 78; Range: 70-105; Units: MG/DL; Status: F Test: BLOOD UREA NITROGEN; Value: 17; Range: 7-18; Units: MG/DL; Status: F Test: CREATININE FOR GFR; Value: 0.73; Range: 0.55-1.02; Units: MG/DL; Status: F Test: GLOMERULAR FILTRATION RATE; Value: > 60.0; Range: >60; Status: F Test: SODIUM LEVEL; Value: 141; Range: 136-145; Units: MEQ/L; Status: F Test: POTASSIUM SERUM; Value: 3.9; Range: 3.5-5.1; Units: MEQ/L; Status: F Test: CHLORIDE LEVEL; Value: 108; Range: 98-107; Abnormal: Above high normal; Units: MEQ/L; Status: F Test: CARBON DIOXIDE LEVEL; Value: 25; Range: 21-32; Units: MEQ/L; Status: F Test: ANION GAP; Value: 8; Range: 8-16; Units: MEQ/L; Status: F Test: CALCIUM LEVEL; Value: 8.6; Range: 8.5-10.1; Units: MG/DL; Status: F Test Note: ; Units are mL/min/1.73 m2 Chronic Kidney Disease Staging per NKF: Stage I & II GFR >=60 Normal to Mildly Decreased Stage III GFR 30-59 Moderately Decreased Stage IV GFR 15-29 Severely Decreased Stage V GFR <15 Very Little GFR Left ESRD GFR <15 on ROLL COATING MACHINE OPERATOR Lab Order: CBC with Diff; SPEC'M 09/30/16 22:47 Test: WHITE BLOOD COUNT; Value: 9.8; Range: 4.0-10.0; Units: K/mm3; Status: F Test: RED BLOOD COUNT; Value: 3.94; Range: 4.00-5.40; Abnormal: Below low normal; Units: M/mm3; Status: F Test: HEMOGLOBIN; Value: 10.5; Range: 12.0-16.0; Abnormal: Below low normal; Units: g/dl; Status: F Test: HEMATOCRIT; Value: 32.9; Range: 36.0-47.0; Abnormal: Below low normal; Units: %; Status: F Test: MEAN CORPUSCULAR VOLUME; Value: 83.4; Range: 80.0-96.0; Units: fl; Status: F Test: MEAN CORPUSCULAR HEMOGLOBIN; Value: 26.6; Range: 27.0-33.0; Abnormal: Below low normal; Units: pg; Status: F Test: MEAN CORPUSCULAR HGB CONC; Value: 31.9; Range: 32.0-36.5; Abnormal: Below low normal; Units: g/dl; Status: F Test: RED CELL DISTRIBUTION WIDTH; Value: 14.3; Range: 11.5-14.5; Units: %; Status: F Test: PLATELET COUNT, AUTOMATED; Value: 337; Range: 150-450; Units: k/mm3; Status: F Test: NEUTROPHILS %; Value: 54.0; Range: 36.0-66.0; Units: %; Status: F Test: LYMPH %; Value: 34.3; Range: 24.0-44.0; Units: %; Status: F Test: MONO %; Value: 5.9; Range: 0.0-5.0; Abnormal: Above high normal; Units: %; Status: F Test: EOS %; Value: 1.3; Range: 0.0-3.0; Units: %; Status: F Test: BASO %; Value: 0.6; Range: 0.0-1.0; Units: %; Status: F Test: LARGE UNSTAINED CELL %; Value: 3.9; Range: 0.0-4.0; Units: %; Status: F Test: NEUTROPHILS #; Value: 5.3; Range: 1.8-7.7; Units: K/mm3; Status: F Test: LYMPH #; Value: 3.4; Range: 1.5-4.5; Units: K/mm3; Status: F Test: MONO #; Value: 0.6; Range: 0.0-0.8; Units: K/mm3; Status: F Test: EOS #; Value: 0.1; Range: 0.0-0.50; Units: K/mm3; Status: F Test: BASO #; Value: 0.1; Range: 0.0-0.2; Units: K/mm3; Status: F Test: LARGE UNSTAINED CELL #; Value: 0.4; Range: 0.0-0.4; Units: K/mm3; Status: F Lab Order: Lipase; [facility]' 09/30/16 22:47 Test: LIPASE; Value: 168; Range: 73-393; Units: U/L; Status: F Lab Order: Liver Profile; [facility]' 09/30/16 22:47 Test: AST/SGOT; Value: 15; Range: 15-37; Units: U/L; Status: F Test: ALT/SGPT; Value: 15; Range: 12-78; Units: U/L; Status: F Test: ALKALINE PHOSPHATASE; Value: 85; Range: 45-117; Units: U/L; Status: F Test: BILIRUBIN,TOTAL; Value: 0.5; Range: 0.2-1.0; Units: MG/DL; Status: F Test: BILIRUBIN,DIRECT; Value: < 0.1; Range: 0.0-0.2; Units: MG/DL; Status: F Test: TOTAL PROTEIN; Value: 8.1; Range: 6.4-8.2; Units: GM/DL; Status: F Test: ALBUMIN; Value: 3.5; Range: 3.2-5.2; Units: GM/DL; Status: F Test: ALBUMIN/GLOBULIN RATIO; Value: 0.76; Range: 1.00-1.93; Abnormal: Below low normal; Status: F Lab Order: Urinalysis; SPEC'M 09/30/16 22:47 Test: APPEARANCE, URINE; Value: CLEAR; Range: CLEAR; Status: F Test: COLOR, URINE; Value: YELLOW; Range: YELLOW; Status: F Test: PH,URINE; Value: 7.0; Range: 5.0-9.0; Units: UNITS; Status: F Test: SPECIFIC GRAVITY URINE AUTO; Value: 1.024; Range: 1.002-1.035; Status: F Test: PROTEIN, URINE AUTO; Value: NEGATIVE; Range: NEGATIVE; Units: mg/dL; Status: F Test: GLUCOSE, URINE (UA) AUTO; Value: NEGATIVE; Range: NEGATIVE; Units: mg/dL; Status: F Test: KETONE, URINE AUTO; Value: NEGATIVE; Range: NEGATIVE; Units: mg/dL; Status: F Test: UROBILINOGEN, URINE AUTO; Value: 0.2; Range: 0.0-2.0; Units: mg/dL; Status: F Test: BILIRUBIN, URINE AUTO; Value: NEGATIVE; Range: NEGATIVE; Status: F Test: NITRITE, URINE AUTO; Value: NEGATIVE; Range: NEGATIVE; Status: F Test: LEUKOCYTE ESTERASE, URINE AUTO; Value: NEGATIVE; Range: NEGATIVE; Status: F Test: BLOOD, URINE BLOOD; Value: NEGATIVE; Range: NEGATIVE; Status: F Test: WBC, URINE AUTO; Value: 1; Range: 0-3; Units: /HPF; Status: F Test: RBC, URINE AUTO; Value: 2; Range: 0-3; Units: /HPF; Status: F Test: BACTERIA, URINE AUTO; Value: 1+; Range: NEGATIVE; Abnormal: Above high normal; Status: F Test: SQUAMOUS EPITHELIAL CELL UR AU; Value: 1; Range: 0-6; Units: /HPF; Status: F Test: HYALINE CAST, URINE AUTO; Value: 0; Range: 0-1; Units: /LPF; Status: F Lab Order: Urine Culture; SPEC' 09/30/16 22:47 Test: URINE CULTURE; Value: <EXTERNAL COMMENT eCWMed> FULL REPORT IN LAB NOTES (eCW and [facility]ent).; Status: F Test: URINE CULTURE; Value: URINE CULTURE RESULT NO GROWTH CLINICAL SIGNIFICANCE 1 ORGANISM; Status: F Radiology Order: CT ABD & PELVIS: IV and Oral Contrast Test: CT ABD & PELVIS: IV and Oral Contrast REASON FOR EXAMINATION: Abdomen Pain; ; CLINICAL HISTORY: Abdominal pain.; TECHNIQUE: Multiple axial, sagittal and coronal CT images were obtained through the abdomen and pelvi; s after administration of intravenous contrast material. Images were obtained before and after IV con; trast administration.; COMMENTS:; Comparison is made to the prior exam performed on 06/20/2016.; The liver is of uniform attenuation without mass or defect. There is no intra or extrahepatic biliary; ductal dilatation. The spleen is normal. The gallbladder is within normal limits. The pancreas is of; normal contour and attenuation characteristics. There is no evidence of adrenal mass.; Both kidneys demonstrate prompt and equal nephrograms. The kidneys are normal in size, shape and conf; iguration. There is no evidence of renal or ureteral mass. No renal or ureteral calculi are identifie; d. There is no hydroureter or hydronephrosis.; No evidence for appendicitis. There is no bowel wall thickening. No evidence for small or large sedrick; l obstruction. There is no evidence of abdominal ascites or lymphadenopathy. Gastric bypass surgery.; There is no evidence of intrinsic or extrinsic bladder mass. There is no pelvic ascites or lymphadeno; diamond. Moderate-sized fecal stasis suggestive of constipation.; Images of the lung bases show no evidence of pleural or parenchymal mass. There are no pleural effusi; ons.; The bony structures are free of lytic or blastic lesions. Unremarkable lumbar metallic screws.; IMPRESSION:; Unchanged moderate constipation.; No evidence of acute abdominal or pelvic pathology.; Thank you for your kind referral of this patient.; ; Outcome: 01:16 Discharge ordered by Provider. cc10 01:45 Discharge Assessment: Patient awake, alert and oriented x 3. No cognitive and/or js15 functional deficits noted. Patient verbalized understanding of disposition instructions. patient administered narcotics - yes. Pt provided with safe discharge. The following High Risk Discharge criteria are identified: None. Discharged to home ambulatory, with significant other, medicaid cab called. Condition: stable. Discharge instructions given to patient, Instructed on discharge instructions, follow up and referral plans. medication usage, diet, hydration Demonstrated understanding of instructions, medications, Pt was receptive of discharge instructions/ teaching. CT Study completed. Property sent home with patient. 01:46 Patient left the ED. js15 Signatures: Dispatcher [employer] EDMS Carolyn Perez, Reg Reg gb Annalise Rodrigez,RN RN lf1 Ada Stein Christopher, RPA-C RPA-Cck7 Radha Lozoya, RN RN ttb Estelle Hollingsworth, CONCRETE STONE FINISHING SUPERVISOR CONCRETE STONE FINISHING SUPERVISOR elp Jayden Fagan, PA-C PA-C cc10 Manuela Posada,RN RN ms18 Yelitza Stinson,RN RN js15 Marc Dai,RN RN nn1 Charisma Jason Tonya,RN RN tm5 Chart Complete LUIS
== END 2016-10-01 01:46 | disposition home or self-care (01) ==
LOC: M ED 20:58
DX: K59.00 Constipation, unspecified (principal); F41.9 Anxiety disorder, unspecified; F32.9 Major depressive disorder, single episode, unspecified; F43.10 Post-traumatic stress disorder, unspecified; Z87.891 Personal history of nicotine dependence; Z79.899 Other long term (current) drug therapy; Z88.8 Allergy status to other drugs, medicaments and biological substances; Z91.030 Bee allergy status
CPT/HCPCS: 36415; 74177; 80048; 80076; 81001; 82150; 83690; 85025; 87086; 96361; 96374; 96375; 99284; J1200; J1885; J2405; J2765; Q9963; Q9967

== ENCOUNTER → 2016-12-24 | Outpatient (REF) | payer OTHER ==
[~2016-12-24] MED LIST changes: -SERT-141 PO; +SERT50TA PO
== END ==
LOC: M SFHCCAPE 14:22
PROVIDERS: ATTEND Physician Assistant
DX: J02.9 Acute pharyngitis, unspecified (principal)

== ENCOUNTER → 2019-01-24 | Outpatient (REF) | payer MEDICAID ==
[~2019-01-24] MED LIST changes: -AUGM875T27 PO; +AUGM875T28 PO; -CARA1TAB2 PO; +CARA1TAB6 PO; +CIPR-249 PO; -CIPR500T89 PO; +FOLI1TAB11 PO; -FOLI1TAB2 PO; +MORP1TAB20 PO; -MORP30TA34 PO; +MS C PO; -MS C100T PO; +ONDA-227 PO; -ONDA1TAB15 PO; +ONDA4TAB5 PO; -PANT40TA2 PO; +PANT40TA3 PO; +PERC5TAB12 PO; -PERC5TAB6 PO; -PROM50TA2 PO; +PROM50TA4 PO; -ROPI0.25 PO; +ROPI0.253 PO; +SERT-141 PO; -SERT50TA PO; +TIZA4CAP PO; -TIZA4CAP3 PO; +TRAZ-252 PO; -TRAZ50TA4 PO; -ZOFR20TA PO; +ZOFR4TAB16 PO; -ZOFR8TAB PO
== END ==
LOC: M SFHCCAPE 16:12
PROVIDERS: ATTEND Physician Assistant
DX: J02.9 Acute pharyngitis, unspecified (principal)

== ENCOUNTER → 2020-12-10 | Outpatient (CLI) | payer MEDICARE, MEDICAID ==
[~2020-12-10] MED LIST changes: +CHOL100029 PO; -DOKTAB2 PO; -DULO1CAP2 PO; -DULO1CAP3 PO; +DULO1CAP5 PO; +DULO1CAP6 PO; -MAPA325T2 PO; +MAPA325T8 PO; -MORP100T40 PO; +MORP1TAB22 PO; +MORP2CAR IV; -MORP2SY IV; +ONDA-83 PO; +ONDA4INJ4 IV; -ONDA4INJ48 IV; -ONDA4TAB5 PO; +PANT40TA29 PO; -PANT40TA3 PO; -PEG1POW PO; +POLY17PO18 PO; +SENN1TAB84 PO; -VITA-193 PO; +VITA500T37 PO; -VITAD1000T PO
== END ==
LOC: M OUTALCOH 08:17
PROVIDERS: ATTEND Psychiatry & Neurology Psychiatry
DX: F14.20 Cocaine dependence, uncomplicated (principal); F15.20 Other stimulant dependence, uncomplicated; F11.20 Opioid dependence, uncomplicated

== ENCOUNTER 2021-01-01 08:00 | Outpatient (RCR) | payer MEDICARE, MEDICAID | END 2021-01-06 | LOC: M OUTALCOH 08:00 | PROVIDERS: ATTEND Psychiatry & Neurology Psychiatry | DX: F11.20 Opioid dependence, uncomplicated (principal); F15.20 Other stimulant dependence, uncomplicated; F14.20 Cocaine dependence, uncomplicated; Z72.0 Tobacco use | CPT/HCPCS: 90834; H0038 ==

== ENCOUNTER → 2021-02-05 | Outpatient (RCR) | payer MEDICARE, MEDICAID | LOC: M OUTALCOH 01-08 14:01 | PROVIDERS: ATTEND Psychiatry & Neurology Psychiatry | DX: F11.20 Opioid dependence, uncomplicated (principal); F15.20 Other stimulant dependence, uncomplicated; F14.20 Cocaine dependence, uncomplicated; Z72.0 Tobacco use | CPT/HCPCS: H0038 ×3 ==

== ENCOUNTER 2021-03-03 13:47 | Outpatient (RCR) | payer MEDICARE, MEDICAID | END 2021-03-08 | LOC: M OUTALCOH 13:47 | PROVIDERS: ATTEND Psychiatry & Neurology Psychiatry | DX: F11.20 Opioid dependence, uncomplicated (principal); F15.20 Other stimulant dependence, uncomplicated; F14.20 Cocaine dependence, uncomplicated; Z72.0 Tobacco use | CPT/HCPCS: 90853; H0038 ==

== ENCOUNTER → 2021-04-23 | Outpatient (CLI) | payer MEDICARE, MEDICAID ==
[~2021-04-23] MED LIST changes: +PROHANCE 279.3MG/ML 15ML VIAL ONE
--- NOTE | 2021-04-24 23:19 | REPVR ---
PROCEDURE INFORMATION: Exam: MR Lumbar Spine Without and With Contrast Exam date and time: 04/23/2021 3:49 PM Age: 40 years old Clinical indication: Low back pain; Prior surgery; Surgery date: 6+ months; Additional info: Lumbar post laminectomy syndrome TECHNIQUE: Imaging protocol: Multiplanar magnetic resonance images of the lumbar spine without and with intravenous contrast. Contrast material: PROHANCE; Contrast volume: 15 ml; Contrast route: INTRAVENOUS (IV); COMPARISON: MRI-LS SPINE W/O FOLL WITH CON 07/27/2014 10:15 AM FINDINGS: Postoperative changes compatible with posterior instrumented fusion from L3 through S1, and anterior interbody fusion at L5-S1. Metallic artifact completely limits evaluation of the L3 through L5 spinal canal and neural foramina. Lumbar vertebral body heights are maintained. No abnormal marrow signal within visualized portions. No cord compression. No abnormal cord signal. Conus medullaris terminates at the L1 level. No significant canal or foraminal narrowing at L1-L2 or L5-S1. Paravertebral soft tissues are unremarkable. IMPRESSION: Postoperative changes from L2 to through S1, as detailed above. No acute findings, within the limitations of the examination. Electronically signed by: Jey Hernandez On 04/24/2021 23:18:59 PM
== END ==
LOC: M PLAIMG 14:40
PROVIDERS: ATTEND Pain Medicine Interventional Pain Medicine
DX: M96.1 Postlaminectomy syndrome, not elsewhere classified (principal)
CPT/HCPCS: 72158; A9576

== ENCOUNTER 2021-05-01 14:54 | Emergency (ER) | payer MEDICARE, MEDICAID ==
[~2021-05-01] VITALS: Ht 172.7 cm; Wt 79.5 kg
[~2021-05-01 14:54] MED LIST changes: -PROHANCE 279.3MG/ML 15ML VIAL ONE
[2021-05-01] MEDS ORDERED: PRAZ1CAP (15:22)
[2021-05-01] MEDS ORDERED: REXU1TAB3 PO (15:22)
[2021-05-01] MEDS ORDERED: LEVO25TA5 PO (15:22)
[2021-05-01] MEDS ORDERED: ONDANSETRON 4MG/2ML VIAL IV ONE (16:00)
[2021-05-01] MEDS ORDERED: MORPHINE 4 MG/ML 1ML VIAL/SYRINGE (J2270) IV ONE ×3 (16:00→20:20)
[2021-05-01 16:38] LABS: BASO # 0.1 10^3/uL (0.0-0.2); BASO % 0.7 % (0.0-1.0); EOS # 0.1 10^3/uL (0.0-0.5); EOS % 1.6 % (0.0-3.0); HEMATOCRIT 32.2 % (36.0-47.0); HEMOGLOBIN 10.3 g/dl (12.0-15.5); LYMPH # 2.9 10^3/uL (1.5-5.0); MEAN CORPUSCULAR HEMOGLOBIN 26.3 pg (27.0-33.0); MEAN CORPUSCULAR VOLUME 82.4 fl (80.0-96.0); MONO # 0.7 10^3/uL (0.0-0.8); MONO % 8.4 % (2.0-8.0); NEUTROPHILS # 4.9 10^3/uL (1.5-8.5); NEUTROPHILS % 56.1 % (36.0-66.0); PLATELET COUNT, AUTOMATED 239 10^3/uL (150-450); RED BLOOD COUNT 3.91 10^6/uL (4.00-5.40); WHITE BLOOD COUNT 8.7 10^3/uL (4.0-10.0)
--- NOTE | 2021-05-01 17:11 | REP ---
INDICATION: abdominal pain and hematemesis COMPARISON: Comparison CT study October 01, 2016. TECHNIQUE: Helical scanning is acquired and 3 mm axial images were reformatted. Coronal and sagittal MPR images were generated and reviewed. FINDINGS: Preliminary digital head of measurement & insights radiograph demonstrates extensive metallic fusion hardware in the lumbar spine as before. There are clips in right upper quadrant and right pelvis. Bowel gas pattern shows mild to moderate stool. On axial CT images, the lung bases are clear. The liver and the spleen are normal in size homogeneous in texture unchanged. Patient is status post gastric bypass procedure. Normal adrenal glands are seen bilaterally. No abnormality is noted in the pancreas. The gallbladder is surgically absent. The kidneys are morphologically intact. No nephrolithiasis or hydronephrosis seen. The appendix is surgically absent. Patient is status post hysterectomy. Urinary bladder is unremarkable. There is a tiny amount of cul-de-sac fluid. This could be physiologic. No ovarian mass or significant cyst is seen. There is no evidence of gastrointestinal obstruction, free air or other abnormal fluid collection. No abdominal wall defect. No bony destructive lesion. IMPRESSION: Postoperative changes including cholecystectomy, hysterectomy, appendectomy, and lumbosacral spine fusion. Gastric bypass. No acute abdominal or pelvic abnormality. <Electronically signed by Wilton Dumont > 05/01/21 [id number]
[2021-05-01 17:26] LABS: ALBUMIN 3.4 GM/DL (3.2-5.2); ALT/SGPT 69 U/L (12-78); BILIRUBIN,TOTAL 0.6 MG/DL (0.2-1.0); BLOOD UREA NITROGEN 12 MG/DL (7-18); CALCIUM LEVEL 9.1 MG/DL (8.5-10.1); CARBON DIOXIDE LEVEL 23 MEQ/L (21-32); CHLORIDE LEVEL 111 MEQ/L (98-107); CREATININE FOR GFR 0.67 MG/DL (0.55-1.30); GLOMERULAR FILTRATION RATE > 60.0 (>60); GLUCOSE, FASTING 89 MG/DL (70-100); LIPASE 230 U/L (73-393); POTASSIUM SERUM 4.2 MEQ/L (3.5-5.1); SODIUM LEVEL 142 MEQ/L (136-145); TOTAL PROTEIN 7.3 GM/DL (6.4-8.2)
[2021-05-01 19:24] LABS: RSV AMPLIFICATION NEGATIVE (NEGATIVE)
[2021-05-01 20:15] VITALS: BP 125/73
== END 2021-05-01 20:27 | disposition short-term general hospital (02) ==
LOC: M ED 14:54
DX: K28.9 Gastrojejunal ulcer, unspecified as acute or chronic, without hemorrhage or perforation (principal); K92.0 Hematemesis; Z98.84 Bariatric surgery status; Z90.49 Acquired absence of other specified parts of digestive tract; Z90.710 Acquired absence of both cervix and uterus; M43.26 Fusion of spine, lumbar region; E03.9 Hypothyroidism, unspecified; F17.200 Nicotine dependence, unspecified, uncomplicated; Z88.8 Allergy status to other drugs, medicaments and biological substances; Z91.048 Other nonmedicinal substance allergy status; Z91.030 Bee allergy status; Z79.899 Other long term (current) drug therapy
CPT/HCPCS: 74176; 80053; 83690; 85025; 87631; 96374; 96375; 96376; 99285; J2270; J2405

== ENCOUNTER 2021-05-09 12:53 | Emergency (ER) | payer MEDICARE, MEDICAID ==
[~2021-05-09] VITALS: Ht 172.7 cm; Wt 78.6 kg
[~2021-05-09 12:53] MED LIST changes: +LEVO25TA5 PO; +PRAZ1CAP; +REXU1TAB3 PO
[2021-05-09] MEDS ORDERED: NS 1,000 ML IV ONE ×2 (15:45→17:55)
[2021-05-09] MEDS ORDERED: MORPHINE 4 MG/ML 1ML VIAL/SYRINGE (J2270) IV ONE ×2 (15:45→17:55)
[2021-05-09] MEDS ORDERED: ONDANSETRON 4MG/2ML VIAL IV ONE (15:45)
--- NOTE | 2021-05-09 16:03 | REP ---
INDICATION: Abdominal Pain. COMPARISON: None. TECHNIQUE: Four views total FINDINGS: There are a few gas-filled nondilated small bowel loops in the abdomen. There is no evidence of intestinal obstruction or free air. Metallic radiodensity from previous spinal fixation is noted. Surgical clips in the right upper quadrant from previous cholecystectomy. Surgical clips in the pelvis likely from previous tubal ligation. The accompanying single frontal view of the chest shows no free subdiaphragmatic air, cardiomegaly, infiltrates or effusions. IMPRESSION: Nonspecific intestinal gas pattern. <Electronically signed by David Ellington > 05/09/21 [id number]
[2021-05-09 16:27] LABS: BASO # 0.1 10^3/uL (0.0-0.2); BASO % 0.8 % (0.0-1.0); EOS # 0.1 10^3/uL (0.0-0.5); EOS % 1.3 % (0.0-3.0); HEMOGLOBIN 11.9 g/dl (12.0-15.5); LYMPH # 2.5 10^3/uL (1.5-5.0); LYMPH % 31.5 % (24.0-44.0); MEAN CORPUSCULAR HEMOGLOBIN 27.5 pg (27.0-33.0); MEAN CORPUSCULAR HGB CONC 32.2 g/dl (32.0-36.5); MEAN CORPUSCULAR VOLUME 85.6 fl (80.0-96.0); MONO # 0.6 10^3/uL (0.0-0.8); MONO % 7.3 % (2.0-8.0); NEUTROPHILS # 4.6 10^3/uL (1.5-8.5); NEUTROPHILS % 58.6 % (36.0-66.0); PLATELET COUNT, AUTOMATED 295 10^3/uL (150-450); RED BLOOD COUNT 4.32 10^6/uL (4.00-5.40); WHITE BLOOD COUNT 7.8 10^3/uL (4.0-10.0)
[2021-05-09 17:02] LABS: ALBUMIN 3.6 GM/DL (3.2-5.2); ALT/SGPT 31 U/L (12-78); BILIRUBIN,DIRECT 0.1 MG/DL (0.0-0.2); BILIRUBIN,TOTAL 0.5 MG/DL (0.2-1.0); BLOOD UREA NITROGEN 13 MG/DL (7-18); CALCIUM LEVEL 9.2 MG/DL (8.5-10.1); CARBON DIOXIDE LEVEL 24 MEQ/L (21-32); CHLORIDE LEVEL 111 MEQ/L (98-107); CK-MB VALUE MASS < 1.0 NG/ML (<3.6); CPK CREATINE PHOSPHOKINASE 106 U/L (26-192); CREATININE FOR GFR 0.78 MG/DL (0.55-1.30); GLOMERULAR FILTRATION RATE > 60.0 (>60); GLUCOSE, FASTING 81 MG/DL (70-100); LIPASE 420 U/L (73-393); MB/CK RELATIVE INDEX 0.94 (< OR =4); POTASSIUM SERUM 4.4 MEQ/L (3.5-5.1); SODIUM LEVEL 142 MEQ/L (136-145); TOTAL PROTEIN 7.5 GM/DL (6.4-8.2); TROPONIN I < 0.02 NG/ML (< 0.10)
[2021-05-09] MEDS ORDERED: GI COCKTAIL 50ML BTL(HYOSCYAMINE/MAALOX/LIDOCAINE VISCOUS)(1:3:1) PO ONE (17:55)
[2021-05-09] MEDS ORDERED: SUCRALFATE SUSP 1GM/10ML UD PO ONE (17:55)
[2021-05-09] MEDS ORDERED: ISOVUE-370 76% 100ML VIAL As Ordered ONE (17:58)
[2021-05-09 18:43] VITALS: BP 104/59
--- NOTE | 2021-05-09 18:55 | REPVR ---
PROCEDURE INFORMATION: Exam: CT Abdomen And Pelvis With Contrast Exam date and time: 05/09/2021 6:11 PM Age: 40 years old Clinical indication: Other: Evaluate for pancreatitis TECHNIQUE: Imaging protocol: Computed tomography of the abdomen and pelvis with contrast. Radiation optimization: All CT scans at this facility use at least one of these dose optimization techniques: automated exposure control; mA and/or kV adjustment per patient size (includes targeted exams where dose is matched to clinical indication); or iterative reconstruction. Contrast material: ISOVUE 370; Contrast volume: 100 ml; Contrast route: INTRAVENOUS (IV); COMPARISON: CT ABD PELVIS W/O CONTRAST 05/01/2021 4:24 PM FINDINGS: Liver: Normal. No mass. Gallbladder and bile ducts: There has been a cholecystectomy. Pancreas: Normal. No ductal dilation. Spleen: Normal. No splenomegaly. Adrenal glands: Normal. No mass. Kidneys and ureters: Normal. No hydronephrosis. Stomach and bowel: This patient is status post gastric bypass surgery. Appendix: There has been an appendectomy. Intraperitoneal space: Unremarkable. No free air. No significant fluid collection. Vasculature: Unremarkable. No abdominal aortic aneurysm. Lymph nodes: Unremarkable. No enlarged lymph nodes. Urinary bladder: Unremarkable as visualized. Reproductive: There has been a hysterectomy. Bones/joints: Status post posterior interbody fusion of L3-L5 using transpedicular screws and metallic side plates. Anterior interbody fusion of L5 on S1. Status post bilateral laminectomy at L4 and L5. Soft tissues: Small upper abdominal mid ventral hernia without incarceration. IMPRESSION: 1. This patient is status post gastric bypass surgery. 2. There has been a cholecystectomy. 3. There has been a hysterectomy. Electronically signed by: Ede Morgan On 05/09/2021 18:54:33 PM
--- NOTE | 2021-05-09 20:06 | ECGEPIP ---
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
== END 2021-05-09 20:14 | disposition home or self-care (01) ==
LOC: M ED 12:53
DX: R10.9 Unspecified abdominal pain (principal); R11.2 Nausea with vomiting, unspecified; Z98.84 Bariatric surgery status; Z87.442 Personal history of urinary calculi; Z90.710 Acquired absence of both cervix and uterus; Z90.49 Acquired absence of other specified parts of digestive tract; Z88.8 Allergy status to other drugs, medicaments and biological substances; Z91.048 Other nonmedicinal substance allergy status; Z91.030 Bee allergy status; Z79.899 Other long term (current) drug therapy
CPT/HCPCS: 74021; 74177; 80048; 80076; 81001; 82550; 82553; 83605; 83690; 84484; 85025; 93005; 96361; 96374; 96375; 96376; 99284; J2270; J2405; Q9967

== ENCOUNTER 2021-05-15 14:29 | Emergency (ER) | payer MEDICARE, MEDICAID ==
[~2021-05-15] VITALS: Ht 172.7 cm; Wt 79.8 kg
--- NOTE | 2021-05-15 15:30 | REP ---
INDICATION: Pain over great toe after dropping box on it COMPARISON: None. TECHNIQUE: AP, lateral, bilateral oblique views left foot. FINDINGS: The osseous structures and joint spaces are intact and normal. There is no evidence for acute fracture or dislocation. Surrounding soft tissues are unremarkable. No subcutaneous emphysema or radiodense foreign body. IMPRESSION: No acute fracture or dislocation. <Electronically signed by Jj Whitt > 05/15/21 [id number]
--- NOTE | 2021-05-15 15:31 | REP ---
INDICATION: recent perforated ulcer, upper abd pain COMPARISON: None. TECHNIQUE: Upright view of the chest with supine and upright views of the abdomen and pelvis. FINDINGS: Frontal upright view of the chest demonstrates no acute cardiopulmonary process or free air below the diaphragm to suspect pneumoperitoneum. Supine and upright views of the abdomen and pelvis demonstrate nonspecific bowel gas pattern without obstruction or perforation. No organomegaly. No abnormal calcifications. Prior cholecystectomy and lumbar fixation. Surgical suture material noted in the pelvis. IMPRESSION: Nonspecific bowel gas pattern. No evidence for pneumoperitoneum. <Electronically signed by Jj Whitt > 05/15/21 [id number]
[2021-05-15] MEDS ORDERED: PANTOPRAZOLE 40MG VIAL (C9113 PER 1) IV ONE (15:55)
[2021-05-15] MEDS ORDERED: NS 1,000 ML IV ONE (15:55)
[2021-05-15] MEDS ORDERED: GI COCKTAIL 50ML BTL(HYOSCYAMINE/MAALOX/LIDOCAINE VISCOUS)(1:3:1) PO ONE (15:55)
[2021-05-15 16:11] LABS: BASO # 0.1 10^3/uL (0.0-0.2); BASO % 0.6 % (0.0-1.0); EOS # 0.1 10^3/uL (0.0-0.5); EOS % 1.3 % (0.0-3.0); HEMATOCRIT 35.5 % (36.0-47.0); HEMOGLOBIN 11.1 g/dl (12.0-15.5); LYMPH # 2.9 10^3/uL (1.5-5.0); LYMPH % 31.1 % (24.0-44.0); MEAN CORPUSCULAR HEMOGLOBIN 27.1 pg (27.0-33.0); MEAN CORPUSCULAR HGB CONC 31.3 g/dl (32.0-36.5); MEAN CORPUSCULAR VOLUME 86.6 fl (80.0-96.0); MONO # 0.8 10^3/uL (0.0-0.8); MONO % 8.3 % (2.0-8.0); NEUTROPHILS # 5.5 10^3/uL (1.5-8.5); NEUTROPHILS % 58.4 % (36.0-66.0); PLATELET COUNT, AUTOMATED 326 10^3/uL (150-450); WHITE BLOOD COUNT 9.3 10^3/uL (4.0-10.0)
[2021-05-15 16:48] LABS: ALBUMIN 3.3 GM/DL (3.2-5.2); ALT/SGPT 25 U/L (12-78); BILIRUBIN,DIRECT 0.2 MG/DL (0.0-0.2); BILIRUBIN,TOTAL 0.6 MG/DL (0.2-1.0); CK-MB VALUE MASS < 1.0 NG/ML (<3.6); CPK CREATINE PHOSPHOKINASE 123 U/L (26-192); LIPASE 264 U/L (73-393); MB/CK RELATIVE INDEX 0.81 (< OR =4); TOTAL PROTEIN 6.9 GM/DL (6.4-8.2); TROPONIN I < 0.02 NG/ML (< 0.10)
[2021-05-15] MEDS ORDERED: MORPHINE 4 MG/ML 1ML VIAL/SYRINGE (J2270) IV ONE (17:20)
[2021-05-15] MEDS ORDERED: ISOVUE-370 76% 100ML VIAL As Ordered ONE (17:54)
[2021-05-15 18:19] LABS: BLOOD UREA NITROGEN 9 MG/DL (7-18); CALCIUM LEVEL 9.4 MG/DL (8.5-10.1); CARBON DIOXIDE LEVEL 24 MEQ/L (21-32); CHLORIDE LEVEL 107 MEQ/L (98-107); CREATININE FOR GFR 0.68 MG/DL (0.55-1.30); GLOMERULAR FILTRATION RATE > 60.0 (>60); GLUCOSE, FASTING 84 MG/DL (70-100); SODIUM LEVEL 140 MEQ/L (136-145)
[2021-05-15] MEDS: GASTROGRAFIN SOLUTION 30ML PO SCH ×2 (18:45→19:15)
[2021-05-15] MEDS ORDERED: ONDANSETRON 4MG/2ML VIAL IV ONE (19:40)
--- NOTE | 2021-05-15 19:53 | ECGEPIP ---
[facility] - ED Test Date: 2021-05-15 Pat Name: SIENNA FOSTER Department: Room: - Gender: Female [employer]: [place] : 1980 Requested By: SILVANO Reyna PA-C Order Number: [id number] Reading MD: Solomon Lam Measurements Intervals [place] Rate: 66 P: -1 [place]: 136 QRS: 78 QRSD: 84 T: 57 QT: 386 QTc: 404 Interpretive Statements Normal sinus rhythm BENIGN EARLY REPOLARIZATION SIMILAR TO 05/09/21 Electronically Signed on 05-15-2021 19:53:36 EDT by Solomon Lam
--- NOTE | 2021-05-15 21:23 | REPVR ---
PROCEDURE INFORMATION: Exam: CT Abdomen And Pelvis With Contrast Exam date and time: 05/15/2021 8:09 PM Age: 40 years old Clinical indication: Abdominal pain; Epigastric; Additional info: Epigastric pain, HX of gastric bypass TECHNIQUE: Imaging protocol: Computed tomography of the abdomen and pelvis with contrast. Radiation optimization: All CT scans at this facility use at least one of these dose optimization techniques: automated exposure control; mA and/or kV adjustment per patient size (includes targeted exams where dose is matched to clinical indication); or iterative reconstruction. Contrast material: ISOVUE 370; Contrast volume: 100 ml; Contrast route: INTRAVENOUS (IV); COMPARISON: CT ABD/PEL W/IV CONTRAST ONLY 05/09/2021 6:03 PM FINDINGS: Liver: There is a diffuse decrease in hepatic parenchymal density, consistent with steatosis. Gallbladder and bile ducts: There has been a cholecystectomy. Pancreas: Normal. No ductal dilation. Spleen: Normal. No splenomegaly. Adrenal glands: Normal. No mass. Kidneys and ureters: Normal. No hydronephrosis. Stomach and bowel: This patient is status post gastric bypass surgery. Circumferential thickening of the wall of the distal esophagus. Clinical correlation to exclude reflux esophagitis or neoplasm suggested. Appendix: No evidence of appendicitis. Intraperitoneal space: There is minimal fluid in the cul-de-sac most likely physiologic. Clinical correlation to exclude other causes of cul-de-sac fluid suggested. Vasculature: Unremarkable. No abdominal aortic aneurysm. Lymph nodes: Unremarkable. No enlarged lymph nodes. Urinary bladder: Unremarkable as visualized. Reproductive: There has been a hysterectomy. 2 cm right ovarian cyst likely functional. Bones/joints: Status post lower lumbar interbody fusion from L3-S1 using transpedicular screws, metallic rods and bone grafting. Status post bilateral laminectomies at L4 and L5. Soft tissues: Upper abdominal mid ventral hernia without obvious incarceration. IMPRESSION: 1. There is a diffuse decrease in hepatic parenchymal density, consistent with steatosis. 2. There has been a cholecystectomy. 3. This patient is status post gastric bypass surgery. Circumferential thickening of the wall of the distal esophagus. Clinical correlation to exclude reflux esophagitis or neoplasm suggested. 4. Upper abdominal mid ventral hernia without obvious incarceration. 5. There has been a hysterectomy. Electronically signed by: Ede Morgan On 05/15/2021 21:23:36 PM
[2021-05-15 21:49] VITALS: BP 107/73
== END 2021-05-15 22:00 | disposition home or self-care (01) ==
LOC: M ED 14:29
DX: K20.91 Esophagitis, unspecified with bleeding (principal); R11.2 Nausea with vomiting, unspecified; R19.7 Diarrhea, unspecified; M79.675 Pain in left toe(s); Z98.84 Bariatric surgery status; E03.9 Hypothyroidism, unspecified; F41.9 Anxiety disorder, unspecified; F32.9 Major depressive disorder, single episode, unspecified; F43.10 Post-traumatic stress disorder, unspecified; Z87.11 Personal history of peptic ulcer disease; Z87.442 Personal history of urinary calculi; Z90.710 Acquired absence of both cervix and uterus; Z90.49 Acquired absence of other specified parts of digestive tract; Z88.8 Allergy status to other drugs, medicaments and biological substances; Z91.030 Bee allergy status; Z79.899 Other long term (current) drug therapy; F17.200 Nicotine dependence, unspecified, uncomplicated
CPT/HCPCS: 73630; 74021; 74177; 80048; 80076; 82550; 82553; 83690; 84484; 85025; 93005; 96374; 96375; 99284; C9113; J2270; J2405; Q9963; Q9967

== ENCOUNTER 2021-05-25 21:46 | Emergency (ER) | payer MEDICARE, MEDICAID ==
[~2021-05-25] VITALS: Ht 172.7 cm; Wt 81.7 kg
[2021-05-25 21:46] VITALS: BP 121/61
--- OUTSIDE RECORDS SUMMARY | 2021-05-25 21:54 | CCD ---
Author Author [facility] Organization [facility] Address Unknown Phone Unavailable Care Team Providers Care Wave Solder Offbearer Name Role Phone Abida Gomez Unavailable PROBLEMS Type Condition ICD9-CM Code FQC41-SX Code Onset Dates Condition S tatus W/U Status Risk SNOMED Code Notes Problem Hypothyroidism, unspecified type E03.9 Active conf irmed 73483329 Problem Migraine without status migr ainosus, not intractable, unspecified migraine type G43.909 Active confirmed 20713859 Problem Bipolar 1 disorder F31.9 Active confirmed 3 85984824 Problem Bleeding ulcer K27.4 Active confirmed 69629 000 Problem Crohn's disease with complic ation, unspecified gastrointestinal tract location K50.919 Active confirmed 94591068 Problem 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 Active confirmed 295271465 Problem History of gastrointestinal ulcer Z87.19 Active confirmed 669241920 Problem Cocaine abuse in remission F14.11 Active confirmed 869338871 Problem History of ulcer disease Z87.898 Active confirmed 885126438 Problem Normocytic hypochromic anemia D50.9 Active confirm ed 27885588 Problem Attention deficit hyperactivity disorder (ADHD), unspecified ADHD type F90.9 Active confirmed 127126779 Problem Schizoaffective disorder, unspecified type F25.9 Active confirmed 02351070 RULE OUT Problem Gastroesophageal reflux disease without esophagitis K21.9 Active confirmed 148974369 Problem Insomnia, unspecified type G47.00 Active confirmed 541581121 Problem Post-traumatic stress disorder, unspecified F43.10 Active confirmed 02943580 Problem BOOKER (generalized anxiety disorder) F41.1 Activ e confirmed 24274251 Problem Anxiety F41.9 Active confirmed 20663158 Problem Depression, unspecified depression type F32.9 Active confirmed 02324491 Problem Tobacco dependence F17.200 Active confirmed 01212986 Problem Other chronic pain G89.29 Active confirmed 8 3047708 Problem Hypoglycemia E16.2 Active confirmed 3761478 03 ALLERGIES Allergen (clinical drug ingredient) Drug/Non Drug Allergy do cumented on EMR Reaction Allergy Type Onset Date Status NSAIDS Unknown Non Drug Allergy Active amitriptyline Amitriptyline HCl([facility] Code:[address]-45) Unknown Dr mary Allergy Active rizatriptan Maxalt([facility] Code:[address]-22) anaphylaxis Drug Allergy Active Bees Anaphylaxis-Bakers Yeast Non Drug Allergy Active ENCOUNTERS from 1982 to 2021-03-28 Encounter Location [place] [address] Mar, Abida Jason IMMUNIZATIONS No Information SOCIAL HISTORY Tobacco Use: Social History Observation Description Date Details (start date - stop date) Current Smoker Sex Assigned At : Social History Observation Description Sex Assigned At Unknown Alcohol Screen Question Answer Notes Did you have a drink containing alcohol in the past year? No Points 0 Interpretation Negative Tobacco Use/Smoking Question Answer Notes Are you a current smoker How many cigarettes a day do you smoke? 5 or less How often do you smoke cigarettes? every day REASON FOR REFERRAL No Information VITAL SIGNS No information MEDICATIONS Medication SIG (Take, Route, Frequency, Duration) Notes Start Da te End Date Status One Touch Delica Lancets as directed; E11.9 QD and prn for 90 days Active Prazosin HCl 1 MG 1 capsule at bedtime Orally Once a day for 30 day(s) Feb, Active Remeron 15 MG TAKE ONE TABLET BY MOUTH BERYL RY EVENING orally once a day for 30 days Not-Taking Doxepin HCl 25 MG 1 capsule at bedtime Orally qhs Jul, Not-Taking ONE TOUCH TEST STRIPS as directed; E11.9 QD AND PRN for 90 days Active Rexulti 1 MG 1 tablet Orally Once a day for 30 day(s) 2020 Active Hair Skin & Nails Gummies 1250-7.5-7.5 MCG-MG-UNT as directed Orally Active Biotin 10 MG 1 tablet Orally Once a day for 30 day(s) Active Zantac 150 MG 1 tablet at bedtime Orally Once a day for 30 day (s) Nov, Active SEROquel 25 MG 1 tablet Orally twice daily as needed for 60 days Not-Taking Carafate 1 GM 1 tablet on an empty stomach Orally four times a day as needed for 30 days Active One touch Ultra mini meter as dir; E11.9 up to 2x per day as needed for low blood sugar symptoms for 30 days Active Levothyroxine Sodium 50 MCG 1 tablet in the morning on an empty stomach Orally Once a day for 30 day(s) Jan, Active EpiPen 2-Sav 0.3 MG/0.3ML as directed Injection once for 2 days Jan, Active Pantoprazole Sodium 40 MG 1 tablet Orally Twice a day for 30 day (s) Nov, Active Suboxone 8-2 MG 1 film under the tongue and allow to dissolve Sublingual Once a day Active [place] Carbonate 300 MG 1 capsule Orally Twice a day for 30 day (s) Feb, Not-Taking Multivitamin Adult - 1 tablet Orally Once a day for 30 day(s) Active PROCEDURES No Information RESULTS No Results REASON FOR VISIT TCM MEDICAL (GENERAL) HISTORY Type Description Date Medical History Obesity s/p gastric bypass Medical History Anxiety/Depression/PTSD Medical History Bipolar/ADHD Medical History Stomach ulcers Medical History ovarian cyst left side Medical History Crohn's Medical History Kaitlyn's Medical History [place] Medical History hysterectomy Medical History iron deficient Medical History Kaitlyn's disease Medical History Allergy to bee sting Surgical History L2-S1 spinal fusion-[place] 2009 Surgical History x 2 Surgical History gastric bypass 2011 Surgical History peptic ulcer perforation repair- Dr. Sinha 06/2016 Surgical History EGD 02/2017 Surgical History Gastric bypass revision/ulcer repair-Dr. Sullivan 03/14/2017 Surgical History Hysterectomy 2007 Surgical History colonoscopy-[facility] Surgical History EGD-[facility] 09/2018 Surgical History EGD-[facility] 01/2019 Surgical History EGD and C-scope 2019 Hospitalization History surgical purposes Hospitalization History upper GI bleed/severe stomach pain Hospitalization History upper GI bleed 02/2017 Hospitalization History upper gi bleed 11/2017 Hospitalization History abdominal pain x 8 days-[facility] 10/2018 Goals Section No Information Health Concerns No Information MEDICAL EQUIPMENT No Information MENTAL STATUS No Information FUNCTIONAL STATUS No Information ASSESSMENTS No Information PLAN OF TREATMENT Medication Medication Name Sig Start Date Stop Date Rexulti 1 MG 1 tablet Orally Once a day for 30 day(s) Mar, Next Appt Details Provider Name:Anna Marie Silverman, 2021-04-09 1 0:00:00 AM, [address] [place], [address], Provider Name:Abida Gomez, 1 11:00:00 AM, [address] [place], [address], Provider Name:Ragini Watts, 2021-04-22 03:00:00 PM, [address] [place], [address], Insurance Providers Payer Name Payer Address Payer Phone Insured Name Patient Relati onship to Insured Coverage Start Date Coverage End Date [employer] - MEDICARE [place] [address] [facility] [id number] [address] [facility] MEDICARE DIVISION [address] [facility] [address] [facility] - MEDICAID [place] [facility] B[facility] [address] [facility] [id number] Ada Ayoub
--- OUTSIDE RECORDS SUMMARY | 2021-05-25 21:54 | CCD | Summary of Care ---
Author Author [facility] Organization [facility] Address Unknown Phone Unavailable Care Team Providers Care Warp Tying Machine Tender Name Role Phone PCP Unavailable Encounter Details Care Team Description Date Type Department Stephan Olivares MD [address] [facility] [place], [place] [id number] Yvonne Conrad MD [address] [place] [address] [phone] Jeni Richmond MD [address] [place], [place] [id number] Cari Monroy MD [address] [facility] [id number] [place] [address] [phone] 03/23/2021 [facility] AC1 - Encounter SURGICAL/ORTHOPEDIC AND 03/27/2021 BARIATRIC UNIT [address] [place], [place] [id number] Allergies Comments Active Allergy Reactions Severity Noted Date Swelling of the throat Amitriptyline Swelling High 03/23/2021 Bee Venom Protein (Honey Unknown 03/23/2021 Bee) Swelling of throat Rizatriptan Swelling High 03/23/2021 Levonorgestrel-Ethinyl Unknown 03/23/2021 Estrad documented as of this encounter (statuses as of 03/27/2021) Medications End Date Status Medication Sig Dispensed Refills Start Date Active sucralfate (CARAFATE) 1 Take 1 g by 0 gram tablet mouth 4 (four) times a day. Active venlafaxine XR Take 150 mg 0 (EFFEXOR-XR) 150 mg 24 hr by mouth 1 capsule (one) time each day. Do not crush or chew. Active gabapentin (NEURONTIN) Take 1,200 mg 0 600 mg tablet by mouth 3 (three) times a day. Active multivitamin (THERAGRAN) Take 1 tablet 0 tablet by mouth 1 (one) time each day. Active ferrous sulfate 325 mg Take 325 mg 0 (65 mg iron) tablet by mouth 1 (one) time each day with breakfast. Active pantoprazole (PROTONIX) Take 40 mg by 0 40 mg EC tablet mouth 1 (one) time each day before breakfast. Do not crush, chew, or split. Active mirtazapine (REMERON) 15 Take 15 mg by 0 mg tablet mouth 1 (one) time each day at night. Active brexpiprazole (Rexulti) Take 0.25 mg 0 0.25 mg tablet by mouth 1 (one) time each day. Active levothyroxine (SYNTHROID) Take by mouth 0 125 mcg tablet 1 (one) time each day before breakfast. Active ondansetron (ZOFRAN-ODT) Take 4 mg by 0 4 mg dispersible tablet mouth every 8 (eight) hours if needed for nausea or vomiting. 04/26/2021 Active lactobacillus rhamnosus Take 1 30 capsule 0 (PROBIOTIC EXTRA capsule by 1 STRENGTH) 20 billion cell mouth 1 (one) capsule time each day. Active methylcellulose, Take 2 14 tablet 0 laxative, (CITRUCEL) 500 tablets 1 mg tablet (1,000 mg total) by mouth 2 (two) times a day. documented as of this encounter (statuses as of 03/27/2021) Active Problems Problem Noted Date Crohn's colitis 03/23/2021 Intractable abdominal pain 03/23/2021 Crohn's disease Anxiety documented as of this encounter (statuses as of 03/27/2021) Social History Date Tobacco Use Types Packs/Day Years Used Quit: 03/20/2021 Former Smoker Smokeless Tobacco: Never Used Sex Assigned at Date Recorded Not on file documented as of this encounter Last Filed Vital Signs Reading Time Taken Comments Vital Sign 92/59 03/27/2021 10:38 AM EDT Blood Pressure 64 03/27/2021 10:38 AM EDT Pulse 36.8 C (98.2 F) 03/27/2021 10:24 AM EDT Temperature 16 03/27/2021 10:38 AM EDT Respiratory Rate 97% 03/27/2021 10:38 AM EDT Oxygen Saturation - - Inhaled Oxygen Concentration 82 kg (180 lb 12.4 oz) 03/23/2021 7:00 PM EDT Weight 172 cm (5' 7.72") 03/23/2021 7:00 PM EDT Height 27.72 03/23/2021 7:00 PM EDT Body Mass Index documented in this encounter Discharge Instructions * Attachments The following attachments cannot be sent through Care Everywhere.* Irritable Bowel Syndrome Adult ([place]) documented in this encounter Progress Notes * Cari Monroy MD - 03/26/2021 5:27 PM EDT PROGRESS NOTE: SUBJECTIVE HPI Mrs. Ada Ayoub is a very pleasant 40-year-old female with history gastric bypa ss and Crohn's disease who presents to our facility as a transfer from [facility] for further evaluation of abdominal pain, black stools and saleh colitis on CT. GI and bariatric surgery consultations obtained. Seen and evaluated earlier today at the bedside. Patient feels better and has n o complaints. Denies fever, chills, nausea, vomiting, worsening abdominal pain, diarrhea, hematochezia and melena. In fact, she does not have a bowel movement since her arrival. Tolerating clears. Patient remains hemodynamically stable, T-max 98.5 degrees F. Seen by GI in follow-up, note reviewed. Colonoscopy scheduled for tomorrow. REVIEW OF SYSTEMS See HPI. Rest of review of systems is negative x 10. OBJECTIVE Physical exam: Awake, alert, oriented and in no acute distress. HEENT exam: Oral mucosa is moist. Neck: Supple, no JVD. Lungs: Good air entry and movement, no wheezes, rales or rhonchi. Heart: Regular rhythm and rate, no murmurs. Abdomen: Soft, protuberant but not distended, some tenderness in epigastrium re ulisses. Voluntary guarding noted. No rebound tenderness or involuntary guarding . Bowel sounds are audible. No bruits. Extremities: No edema. LAST RECORDED VITALS Temp: [36.9 C (98.5 F)] 36.9 C (98.5 F) Heart Rate: [80] 80 Resp: [18] 18 BP: (100)/(60) 100/60 Current I/O I/O last 3 completed shifts: In: 1915 (23.4 mL/kg) [P.O.:240; I.V.:1575 (19.2 mL/kg); IV Piggyback:100] Out: 1100 (13.4 mL/kg) [Urine:1100 (0.4 mL/kg/hr)] Weight: 82 kg I/O this shift: In: 240 [P.O.:240] Out: - LABS Recent Results (from the past 24 hour(s)) CBC (Hemogram) Collection Time: 03/26/21 4:28 AM Result Value Ref Range WBC 4.62 (L) 4.80 - 10.00 x1000/ul RBC 3.66 (L) 4.20 - 5.40 x1Mil/ul Hemoglobin 9.4 (L) 12.0 - 16.0 g/dl Hematocrit 30.0 (L) 37.0 - 47.0 % MCV 82.0 81.0 - 99.0 fL MCH 25.7 (L) 27.0 - 31.0 pg MCHC 31.3 (L) 32.2 - 37.0 g/dl RDW 15.9 (H) 11.5 - 14.5 % Platelet Count 232 130 - 400 x1000/ul MPV 10.8 9.4 - 12.4 fL Nucleated RBCs 0.00 0.00 - 0.20 % Abs. Nucleated RBCs 0.00 0.00 - 0.02 x1000/ul Basic metabolic panel Collection Time: 03/26/21 4:28 AM Result Value Ref Range Blood Urea Nitrogen 5 (L) 7 - 18 mg/dl Creatinine 0.79 0.51 - 0.95 mg/dl Glomerular Filtration Rate 81.00 mL/min/1.73m2 Glucose 82 70 - 110 mg/dl Calcium 8.0 (L) 8.5 - 10.1 mg/dl Sodium 140 136 - 145 mEq/L Potassium 3.6 3.5 - 5.1 mEq/L Chloride 110.0 (H) 98.0 - 107.0 mEq/L Anion Gap 6.7 Carbon Dioxide 26.9 21.0 - 32.0 mMol/L Magnesium Collection Time: 03/26/21 4:28 AM Result Value Ref Range Magnesium 1.8 1.6 - 2.6 mg/dl PROBLEM LIST Patient Active Problem List Diagnosis Crohn's colitis (CMS/HCC) Intractable abdominal pain ASSESSMENT AND PLAN Upper GI bleed History of PUD and marginal ulcer in the setting of s/p gastric bypass S/p EGD, 03/25/2021 - EGD showed oozing gastro jejunal ulcer with a visible vessel. Treated with ar lashon plasma coagulation. Normal esophagus, gastric bypass with a normal-sized p ouch and intact staple line. Normal examined jejunum. No specimens collected. - Bariatric surgery consulted, no need for surgical intervention. - continue Protonix drip and Carafate Normocytic anemia - H&H 9.1 and 29.8 on arrival--> 9.4 and 30.0 today Intractable abdominal pain - CT A/p showed evidence of pancolitis raising possibility of IBD/Crohn's diseas e flare-up. However, patient did not have diarrhea, in fact, she did not have a ny bowel movement since arrival to our facility until today. Per nurse, patient had 1 loose bowel movement before initiation of the prep - CRP < 2.9 - patient reported history of Crohn's disease; she has not been not on any medic ations for some time due to social issues. Apparently, patient was homeless and did not care much about her medical issues. - seen by GI, stool studies were ordered to rule out infection ( enteric pathoge n panel, C difficile and calprotectin). Studies finally submitted today - colonoscopy scheduled for tomorrow - patient was started on empiric treatment with IV Flagyl on arrival; unsure if this is of any clinical value as she did not have diarrhea. Stool studies submi tted, I will await results before discontinuing antibiotics Hypoglycemia - Noted on admission. Started on D5w. Continue to monitor. Hypokalemia - treated yesterday with KCl 40 mEq x 1; K 3.6 today - magnesium 1.8 Depression/anxiety/PTSD - Mood compensated. - Continue Abilify, Remeron and Effexor Levothyroxine - clinically euthyroid, continue Synthroid Tobacco use - Current smoker. Smoking cessation discussed with the patient by my predecesso bc. - Declined nicotine replacement Deep vein thrombosis prophylaxis SCDs Hold AC for suspected GI bleeding. Full code CARI MONROY MD 03/26/21 * Payam Martin PA - 03/26/2021 10:07 AM EDT Subjective The patient had EGD yesterday with anastomotic ulcer seen and persistent per the patient. She states she has been on PPI bid and Carafate even as an outpatient. She has not had further diarrhea since admission but has a history of Crohn's c olitis mentioned without any maintenance therapy and colitis on her presenting C T. She is feeling better today. Objective Physical Exam Vitals reviewed. Constitutional: Appearance: Normal appearance. HENT: Head: Normocephalic. Cardiovascular: Rate and Rhythm: Normal rate and regular rhythm. Heart sounds: Normal heart sounds. Pulmonary: Effort: Pulmonary effort is normal. Breath sounds: Normal breath sounds. Abdominal: General: Abdomen is flat. Bowel sounds are normal. Palpations: Abdomen is soft. Tenderness: There is abdominal tenderness (epigastric and LUQ (decreased)). Skin: General: Skin is warm and dry. Neurological: Mental Status: She is alert and oriented to person, place, and time. Last Recorded Vitals Blood pressure 100/60, pulse 80, temperature 36.9 C (98.5 F), temperatur e source Temporal, resp. rate 18, height 1.72 m (5' 7.72"), weight 82 kg (180 lb 12.4 oz), SpO2 100 %. Relevant Results I have reviewed the available lab and diagnostic results as appropriate. Lab Results Component Value Date WBC 4.62 (L) 03/26/2021 HGB 9.4 (L) 03/26/2021 HCT 30.0 (L) 03/26/2021 MCV 82.0 03/26/2021 PLT 232 03/26/2021 Lab Results Component Value Date GLUCOSE 82 03/26/2021 CALCIUM 8.0 (L) 03/26/2021 NA 140 03/26/2021 K 3.6 03/26/2021 CO2 26.9 03/26/2021 CL 110.0 (H) 03/26/2021 BUN 5 (L) 03/26/2021 CREATININE 0.79 03/26/2021 Assessment/Plan Active Problems: Crohn's colitis (CMS/HCC) Intractable abdominal pain The patient is doing better overall and her abdominal pain has decreased but wit h persistent ulcer she needs to follow up with her gastric bypass surgeon for re vision having failed medicinal therapy which can be done as an outpatient. She however does not have a GI MD yet in her area and with the CT findings and h er presenting symptoms we discussed proceeding with repeat colonoscopy to assess the amount of inflammation and severity to see what, if any, type of therapy sh e needs and she is in agreement. Colonoscopy was discussed with the patient including RABIT specifically but not limited to perforation, bleeding, infection, peritonitis, colostomy formation, s plenic bleeding and/or . The patient has been fully informed and educated a nd in agreement. We will therefore prep her this evening for colonoscopy tomorro w as discussed. Associated attestation - Carson Cisse MD - 03/26/2021 2:22 PM EDT Patient seen with EPO PA Abdominal pain last feeling better no further bleeding Results from last 7 days Lab Units 03/26/21 0428 WBC x1000/ul 4.62* HEMOGLOBIN g/dl 9.4* HEMATOCRIT % 30.0* PLATELETS x1000/ul 232 Impression stable upper GI bleed due to a marginal ulcer treated endoscopically. Colonoscopy is planned for tomorrow to assess her history of Crohn's disease a nd diarrhea * Cari Monroy MD - 03/25/2021 5:01 PM EDT PROGRESS NOTE: SUBJECTIVE HPI Mrs. Ada Ayoub is a very pleasant 40-year-old female with history gastric bypa ss and Crohn's disease who presents to our facility as a transfer from [facility] further evaluation of abdominal pain, black stools and saleh colitis on CT. She was admitted with GI and bariatric surgery consultations. Seen and evaluated earlier today at the bedside. No significant overnight event s. Complains of diffuse abdominal discomfort, nothing substantial. However, re ports ongoing tenderness involving epigastric and right upper abdominal quadrant areas. Hemodynamically stable, T-max 97.8 degrees F. S/p EGD: showed oozing gastro jejunal ulcer with a visible vessel. Treated wit h argon plasma coagulation. Normal esophagus, gastric bypass with a normal-siz ed pouch and intact staple line. Normal examined jejunum. No specimens collect ed. Possible colonoscopy tomorrow. REVIEW OF SYSTEMS Patient denies headache, chest pain, pressure, palpitations, nausea, vomiting, w orsening abdominal pain although she continues to have tenderness involving epig astrium and right upper abdominal quadrant. No costovertebral angle tenderness. Rest of review of systems is negative x 10. OBJECTIVE Physical exam: Awake, alert, oriented and in no acute distress. HEENT exam: Oral mucosa is dry. Throat no erythema exudate. Neck: Supple, no JVD. Lungs: Good air entry and movement, no wheezes, rales or rhonchi. Heart: Regular rhythm and rate, no murmurs. Abdomen: Soft, protuberant but not distended, tender in epigastrium and right u pper abdominal quadrant. Voluntary guarding noted. No rebound tenderness or in voluntary guarding. Bowel sounds are audible. No bruits. Extremities: No edema, pedal pulses are palpable. LAST RECORDED VITALS Temp: [35.8 C (96.5 F)-36.6 C (97.9 F)] 36.6 C (97.9 F) Heart Rate: [46-73] 48 Resp: [16-20] 20 BP: (98-116)/(54-73) 108/70 Current I/O I/O last 3 completed shifts: In: 1715 (20.9 mL/kg) [P.O.:240; I.V.:1375 (16.8 mL/kg); IV Piggyback:100] Out: 1750 (21.3 mL/kg) [Urine:1750 (0.6 mL/kg/hr)] Weight: 82 kg I/O this shift: In: 440 [P.O.:240; I.V.:200] Out: 0 LABS Recent Results (from the past 24 hour(s)) CBC and differential Collection Time: 03/25/21 4:20 AM Result Value Ref Range WBC 4.87 4.80 - 10.00 x1000/ul RBC 3.54 (L) 4.20 - 5.40 x1Mil/ul Hemoglobin 9.0 (L) 12.0 - 16.0 g/dl Hematocrit 30.0 (L) 37.0 - 47.0 % MCV 84.7 81.0 - 99.0 fL MCH 25.4 (L) 27.0 - 31.0 pg MCHC 30.0 (L) 32.2 - 37.0 g/dl RDW 15.9 (H) 11.5 - 14.5 % Platelet Count 201 130 - 400 x1000/ul MPV 11.1 9.4 - 12.4 fL Neutrophils 50.5 40.0 - 74.0 % Lymphocytes 35.7 19.0 - 48.0 % Monocytes 10.7 (H) 3.4 - 9.0 % Eosinophils 2.1 0.0 - 7.0 % Basophils 0.8 0.0 - 2.0 % Immature Granulocytes 0.2 0.0 - 0.5 % Nucleated RBCs 0.00 0.00 - 0.20 % Abs. Neutrophils 2.46 1.92 - 8.31 x1000/ul Abs. Lymphocyte 1.74 1.20 - 3.70 x1000/ul Abs. Monocytes 0.52 0.14 - 0.97 x1000/ul Abs. Eosinophils 0.10 0.00 - 0.76 x1000/ul Abs. Basophils 0.04 0.00 - 0.22 x1000/ul Abs. Immature Gran. 0.01 0.00 - 0.02 x1000/ul Abs. Nucleated RBCs 0.00 0.00 - 0.02 x1000/ul Basic metabolic panel Collection Time: 03/25/21 4:20 AM Result Value Ref Range Blood Urea Nitrogen 6 (L) 7 - 18 mg/dl Creatinine 0.72 0.51 - 0.95 mg/dl Glomerular Filtration Rate >90.00 mL/min/1.73m2 Glucose 92 70 - 110 mg/dl Calcium 7.8 (L) 8.5 - 10.1 mg/dl Sodium 140 136 - 145 mEq/L Potassium 3.4 (L) 3.5 - 5.1 mEq/L Chloride 110.0 (H) 98.0 - 107.0 mEq/L Anion Gap 8.7 Carbon Dioxide 24.7 21.0 - 32.0 mMol/L PROBLEM LIST Patient Active Problem List Diagnosis Crohn's colitis (CMS/HCC) Intractable abdominal pain ASSESSMENT AND PLAN Intractable abdominal pain Pancolitis / ? Crohn's disease flare - Reports history of Crohn's disease but not on any medications for some time. She used to be homeless and did not care for her health - seen by GI Stool studies were ordered to rule out infection ( enteric pathogen s, C difficile and calprotectin). Specimen not obtained so far. - Possible colonoscopy 03/26/2021. - continue empiric IV Flagyl for now Suspect upper GI bleed History of PUD and marginal ulcer in the setting of s/p gastric bypass S/p EGD, 03/25/2021 - EGD showed oozing gastro jejunal ulcer with a visible vessel. Treated with ar lashon plasma coagulation. Normal esophagus, gastric bypass with a normal-sized p ouch and intact staple line. Normal examined jejunum. No specimens collected. - Bariatric surgery consulted, no need for surgical intervention. - continue Protonix drip and Carafate Hypoglycemia - Noted on admission. Started on D5w. Continue to monitor. Hypokalemia - KCl 40 mEq x 1 Depression/anxiety/PTSD - Mood compensated. - Continue Abilify, Remeron and Effexor Levothyroxine - Appears euthyroid. - Continue Synthroid Tobacco use - Current smoker. Smoking cessation discussed. - Declined nicotine replacement Deep vein thrombosis prophylaxis SCDs Hold AC for suspected GI bleeding. Full code CARI MONROY MD 03/25/21 * Lore Redman NP - 03/24/2021 4:11 PM EDT PROGRESS NOTE SUBJECTIVE Mrs. Ada Ayoub is a very pleasant 40-year-old female with history gastric bypa ss and Crohn's disease who presents to our facility as a transfer from [facility] further evaluation of abdominal pain, black stools and saleh colitis on CT. She was admitted with GI and bariatric surgery consultations. Seen and evaluated earlier today at the bedside. Discussed with nursing staff i n eyes any significant overnight events. She continues to have abdominal discom fort and bloating. Labs and vitals reviewed. Hemoglobin stable. No surgical i ntervention indicated at this time per bariatric surgery. Plans for upper endos copy tomorrow 03/25/2021 to rule out recurrent marginal ulcer, if negative, plan s for colonoscopy 03/26/2021. Review of Systems Constitutional: Negative for chills and fever. Respiratory: Negative for cough, shortness of breath and wheezing. Cardiovascular: Negative for chest pain, palpitations and leg swelling. Gastrointestinal: Positive for abdominal distention and abdominal pain. Negative for nausea and vomiting. Black stools Genitourinary: Negative for decreased urine volume, difficulty urinating, dysuri a and urgency. Neurological: Negative for dizziness, weakness and headaches. All other systems reviewed and are negative. OBJECTIVE Physical Exam HENT: Head: Normocephalic. Mouth/Throat: Mouth: Mucous membranes are moist. Pharynx: Oropharynx is clear. Eyes: Conjunctiva/sclera: Conjunctivae normal. Cardiovascular: Rate and Rhythm: Normal rate and regular rhythm. Pulmonary: Effort: Pulmonary effort is normal. No respiratory distress. Breath sounds: No wheezing. Abdominal: General: There is distension. Palpations: Abdomen is soft. Tenderness: There is no abdominal tenderness. Musculoskeletal: General: No swelling. Cervical back: Neck supple. Skin: General: Skin is warm. Neurological: General: No focal deficit present. Mental Status: She is alert and oriented to person, place, and time. LAST RECORDED VITALS Temp: [36.1 C (97 F)-36.5 C (97.7 F)] 36.1 C (97 F) Heart Rate: [48-52] 52 Resp: [16-18] 16 BP: (85-109)/(49-67) 95/67 Current I/O I/O last 3 completed shifts: In: 240 (2.9 mL/kg) [P.O.:240] Out: 550 (6.7 mL/kg) [Urine:550 (0.2 mL/kg/hr)] Weight: 82 kg I/O this shift: In: - Out: 250 [Urine:250] LABS Recent Results (from the past 24 hour(s)) CBC and differential Collection Time: 03/23/21 8:42 PM Result Value Ref Range WBC 6.19 4.80 - 10.00 x1000/ul RBC 3.47 (L) 4.20 - 5.40 x1Mil/ul Hemoglobin 9.1 (L) 12.0 - 16.0 g/dl Hematocrit 29.8 (L) 37.0 - 47.0 % MCV 85.9 81.0 - 99.0 fL MCH 26.2 (L) 27.0 - 31.0 pg MCHC 30.5 (L) 32.2 - 37.0 g/dl RDW 16.8 (H) 11.5 - 14.5 % Platelet Count 228 130 - 400 x1000/ul MPV 11.4 9.4 - 12.4 fL Neutrophils 54.6 40.0 - 74.0 % Lymphocytes 34.7 19.0 - 48.0 % Monocytes 8.7 3.4 - 9.0 % Eosinophils 1.1 0.0 - 7.0 % Basophils 0.6 0.0 - 2.0 % Immature Granulocytes 0.3 0.0 - 0.5 % Nucleated RBCs 0.00 0.00 - 0.20 % Abs. Neutrophils 3.37 1.92 - 8.31 x1000/ul Abs. Lymphocyte 2.15 1.20 - 3.70 x1000/ul Abs. Monocytes 0.54 0.14 - 0.97 x1000/ul Abs. Eosinophils 0.07 0.00 - 0.76 x1000/ul Abs. Basophils 0.04 0.00 - 0.22 x1000/ul Abs. Immature Gran. 0.02 0.00 - 0.02 x1000/ul Abs. Nucleated RBCs 0.00 0.00 - 0.02 x1000/ul Magnesium Collection Time: 03/23/21 8:42 PM Result Value Ref Range Magnesium 2.0 1.6 - 2.6 mg/dl Comprehensive metabolic panel Collection Time: 03/23/21 8:42 PM Result Value Ref Range AST 12 (L) 15 - 37 IU/L ALT 16 13 - 56 IU/L Alkaline Phosphatase 56 50 - 136 mIU/ml Total Bilirubin 0.80 0.20 - 1.00 mg/dl Blood Urea Nitrogen 7 7 - 18 mg/dl Creatinine 0.67 0.51 - 0.95 mg/dl Glomerular Filtration Rate >90.00 mL/min/1.73m2 Glucose 48 (LL) 70 - 110 mg/dl Calcium 8.2 (L) 8.5 - 10.1 mg/dl Total Protein 6.6 6.4 - 8.2 g/dl Albumin 3.0 (L) 3.4 - 5.0 g/dl Sodium 140 136 - 145 mEq/L Potassium 3.3 (L) 3.5 - 5.1 mEq/L Chloride 114.0 (H) 98.0 - 107.0 mEq/L Anion Gap 8.3 Carbon Dioxide 21.0 21.0 - 32.0 mMol/L C-reactive protein Collection Time: 03/23/21 8:42 PM Result Value Ref Range C-Reactive Protein (Non-Cardiac) <2.90 0.00 - 3.00 mg/L Lactic acid Collection Time: 03/23/21 8:42 PM Result Value Ref Range Lactic Acid 1.8 0.4 - 2.0 mMol/L POCT whole blood glucose unsolicited results Collection Time: 03/23/21 10:25 PM Result Value Ref Range Glucose, Fingerstick 103 70 - 110 mg/dl CBC and differential Collection Time: 03/24/21 4:29 AM Result Value Ref Range WBC 6.03 4.80 - 10.00 x1000/ul RBC 3.58 (L) 4.20 - 5.40 x1Mil/ul Hemoglobin 9.3 (L) 12.0 - 16.0 g/dl Hematocrit 30.2 (L) 37.0 - 47.0 % MCV 84.4 81.0 - 99.0 fL MCH 26.0 (L) 27.0 - 31.0 pg MCHC 30.8 (L) 32.2 - 37.0 g/dl RDW 16.3 (H) 11.5 - 14.5 % Platelet Count 230 130 - 400 x1000/ul MPV 11.6 9.4 - 12.4 fL Neutrophils 46.6 40.0 - 74.0 % Lymphocytes 41.1 19.0 - 48.0 % Monocytes 9.1 (H) 3.4 - 9.0 % Eosinophils 2.0 0.0 - 7.0 % Basophils 1.0 0.0 - 2.0 % Immature Granulocytes 0.2 0.0 - 0.5 % Nucleated RBCs 0.00 0.00 - 0.20 % Abs. Neutrophils 2.81 1.92 - 8.31 x1000/ul Abs. Lymphocyte 2.48 1.20 - 3.70 x1000/ul Abs. Monocytes 0.55 0.14 - 0.97 x1000/ul Abs. Eosinophils 0.12 0.00 - 0.76 x1000/ul Abs. Basophils 0.06 0.00 - 0.22 x1000/ul Abs. Immature Gran. 0.01 0.00 - 0.02 x1000/ul Abs. Nucleated RBCs 0.00 0.00 - 0.02 x1000/ul Magnesium Collection Time: 03/24/21 4:29 AM Result Value Ref Range Magnesium 2.0 1.6 - 2.6 mg/dl Comprehensive metabolic panel Collection Time: 03/24/21 4:29 AM Result Value Ref Range AST 12 (L) 15 - 37 IU/L ALT 17 13 - 56 IU/L Alkaline Phosphatase 53 50 - 136 mIU/ml Total Bilirubin 0.70 0.20 - 1.00 mg/dl Blood Urea Nitrogen 6 (L) 7 - 18 mg/dl Creatinine 0.62 0.51 - 0.95 mg/dl Glomerular Filtration Rate >90.00 mL/min/1.73m2 Glucose 91 70 - 110 mg/dl Calcium 8.2 (L) 8.5 - 10.1 mg/dl Total Protein 6.2 (L) 6.4 - 8.2 g/dl Albumin 2.8 (L) 3.4 - 5.0 g/dl Sodium 141 136 - 145 mEq/L Potassium 3.9 3.5 - 5.1 mEq/L Chloride 113.0 (H) 98.0 - 107.0 mEq/L Anion Gap 8.1 Carbon Dioxide 23.8 21.0 - 32.0 mMol/L PROBLEM LIST Patient Active Problem List Diagnosis Crohn's colitis ([facility]) Intractable abdominal pain ASSESSMENT AND PLAN Intractable abdominal pain Saleh colitis / Crohn's disease flare Reports history of Crohn's disease but not currently on medications. GI consult ed and does not plan to place on steroids and she is given a diagnosis of inflam matory bowel disease. Stool studies were ordered to rule out any enteric infect ion. Possible colonoscopy 03/26/2021. -appreciate GI -continue empiric IV Flagyl for now -follow-up stool studies Suspect upper GI bleed History of peptic ulcer disease marginal ulcer status post gastric bypass GI consulted and planning for upper endoscopy 03/25/2021 for suspicion of recurr ent marginal ulcer. Bariatric surgery also consult the and no plans for acute s urgical intervention at this time. -IV Protonix b.i.d. with Carafate -NPO after midnight for upper EGD 03/25/2021 Hypoglycemia Noted on admission. Started on D5w. Continue to monitor. Depression/anxiety/PTSD Mood compensated. Continue Abilify Remeron and Effexor Levothyroxine Appears euthyroid. Continue Synthroid Tobacco use Current smoker. Smoking cessation discussed. Declining nicotine replacement Deep vein thrombosis prophylaxis SCDs Hold AC for suspected GI bleeding. Full code SOFTWARE SUPPORT ENGINEER. LORE REDMAN NP 03/24/21 Case discussed and agreed upon with Dr. Richmond Associated attestation - Jeni Richmond MD - 03/24/2021 6:47 PM EDT Patient has been seen and case reviewed with the SOFTWARE SUPPORT ENGINEER/PA. Agree with physical exnell m, assessment and plan. * Effie Valenzuela - 03/24/2021 4:06 PM EDT Discharge Planning Progress Note Patient Name: Ada Ayoub Today's Date: 03/24/2021 Assessment: Met with patient who does not have a permanent address. Patient stays with vari ous friends and relatives. Patient reports she is independent of all ADLs and d enies the use of DME or services at this time. Patient reports she has a PCP ar [facility] in [place]. Patient has no HCP, her mother, Celina gifford ([phone]). Patient is not employed. Patient has medicare and medicaid . Patient will discharge to relatives or friends when medically cleared. Effie MAGAÑA Discharge Planning: Patient expects to be discharged to:: unclear Caregiver: mother-Celina Herrera Caregiver Information: [phone] * Estelle Selby RD CDN - 03/24/2021 2:16 PM EDT Adult Nutrition Assessment Name: Ada Ayoub Date: 1980 Date of Visit: 03/24/21 Date of Admission: 03/23/2021 Reason for Assessment: Scored a 7 on nursing mini nutrition screen Nutrition Plan: Monitor for diet advancement. Recommend Low fiber once medically able Interview completed with patient Nutritional Orders Allergies Allergen Reactions Amitriptyline Swelling Swelling of the throat Maxalt [Rizatriptan] Swelling Swelling of throat Bee Venom Protein (Honey Bee) Unknown Seasonale (91) [Levonorgestrel-Ethinyl Estrad] Unknown Dietary Orders (From admission, onward) Start Ordered 03/24/21 0001 Adult NPO diet Diet effective midnight 03/23/21 1048 Nutrition Support Tube feeding: n/a Parenteral Nutrition: n/a IV Fluids: D5 @ 125 ml/hr provides 510 kcal Assessment Food/Nutrition History Diet/Nutritional Supplements prior to admission: regular but not eating well las t week Appetite prior to admission: decreased per GI note, nothing per patient Access to food/supplies: yes Nutrition knowledge/Beliefs: NILA Medication/Herbal Supplements/Complementary medicine: NILA Physical Activity: NILA Nutritional Problem/Concern per pt anything I ate either I vomited or had diarrh ea Anthropometrics Measurements Height: 1.72 m (5' 7.72") Admit Weight: 82 kg (180 lb 12.4 oz) 03/23 unknown wt method Most Current Weight: 82 kg (180 lb 12.4 oz) 03/23 unknown wt method Body mass index is 27.72 kg/m. BMI Indicates: overweight IBW: 138 lb +/- 10% %IBW: 131% ABW: 149 lb (68 kg) Frame Size: large Weight history UBW: Feels she may have lost over the last week Weight Changes: limited weights in Epic to assess for change .per GI note denies any significant wt loss Wt Readings from Last 5 Encounters: 03/23/21 82 kg (180 lb 12.4 oz) Biochemical Data, tests and procedures Lab Results Component Value Date GLUCOSE 91 03/24/2021 CALCIUM 8.2 (L) 03/24/2021 NA 141 03/24/2021 K 3.9 03/24/2021 CO2 23.8 03/24/2021 CL 113.0 (H) 03/24/2021 BUN 6 (L) 03/24/2021 CREATININE 0.62 03/24/2021 Lab Results Component Value Date ALBUMIN 2.8 (L) 03/24/2021 Mg++ WNL Lab Comments:Alb L may be skewed due acute phase Tests/Procedures: NPO for gastroscopy Client History Problem List Items Addressed This Visit None Past Medical History: Diagnosis Date Anxiety Crohn's disease (CMS/HCC) Hypoglycemia Peptic ulcer PTSD (post-traumatic stress disorder) Social History/Personal Data: recent smoker Estimated Needs Calories per day: 0414-6571 kcal/day (25 - 28 kcal/kg) Protein per day: 68-82 g/day (1.0 - 1.2 g/kg) Fluid per day: 4002-8368 ml/day (25 - 30 ml/kg) Comments: needs based on adjBW 68 kg and assessed for age and maintenance of alexander n body mass Nutrition Focused Physical Findings Overall appearance: no wasting/fat loss observed Body language: up in bed Nerves and cognition: not documented on, alert and oriented per observation Head and eyes: WDL denies difficulty swallowing Cardiovascular-pulmonary system: , room air Extremities, muscles and bones: no edema; weakness to BLE Digestive system: hx of crohns with up to 9 BM daily, active BS Skin: intact Visit Vitals BP 95/67 Pulse 52 Temp 36.1 C (97 F) (Temporal) Resp 16 Current oral intake: npo, 50% at dinner last night Diagnosis Nutrition Diagnosis: inadequate energy/protein intake related to crohs colitis a s evidenced by npo. Interventions Nutrition Prescription Meals and Snacks: Low fiber once medically able Enteral nutrition: n/a Parenteral nutrition: n/a Supplements Medical food supplements: n/a Vitamin and mineral supplements: n/a Bioactive substance management: n/a Feeding Assistance: n/a Nutrition-related medication management: protonix, synthroid, carafate, flagyl, zofran PRN Nutrition Education/Counseling Nutrition Education: n/a Coordination of Care Collaboration and referral of nutrition care: n/a Discharge and transfer of nutrition care to new setting or provider: n/a Monitoring and Evaluating Nutrition Monitoring and Goals Food/Nutrition-Related History Outcomes: Diet to be advanced within 2-3 adys Anthropometric Measurement Outcomes: Maintain weight during admission Biochemical Data, Medical Tests, and Procedure Outcomes: Alb to trend WNL Nutrition-Focused Physical Finding Outcomes: skin remain intact 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 Pt is independent in her room. Pt does not needed skilled O T services. She doesn't have any barriers to prevent her from discharging home. Recommend d/ c home when medially stable. * Lori Jensen, PT - 03/24/2021 12:12 PM EDT PHYSICAL THERAPY SCREENING Pt currently independent up ambulating to/from bathroom. No further PT indicate d at this time. documented in this encounter H&P Notes * Yvonne Conrad MD - 03/23/2021 5:50 PM EDT H & P History Of Present Illness HPI This is a 40-year-old female who comes to our facility from [facility] after she was seen and evaluated in the ER for intractable abdominal pain. Patient has a history of gastric bypass surgery. Her abdominal pain started 6 days ago and has progressively worsened. Patient states that it is difficult for her to swallow anything whether it is food or liquid. She st ates that she feels worsening abdominal pain when she tries to ingest anything. Upon reviewing her documentation, it seems that she has a past medical history significant for GI bleeding, peptic ulcer as well as Crohn's disease. CT of the abdomen was performed and shows thickening of the colon notably the sigmoid col on and distal descending colon. There is also inflammation in the mid ascending colon, all findings which are consistent with colitis. Lab work mainly on impr essive, patient does appear to have some anemia however I have nothing to compar e to at this moment in time. The above patient was discussed with Dr. Lowry by my colleague during the acceptance of this transfer as the reason for transfer appears to be the need for bariatric surgical consultation. During my encounter , patient is pleasant, significant other at bedside. Patient has pain in the pe riumbilical as well as left portion of abdomen mainly. Belly is soft, no signs of acute abdomen. Patient appears clinically stable, and in no acute distress a t rest. Past Medical History Peptic ulcer disease, Crohn's disease, hypoglycemia, GI bleeding, PTSD, anxiety, depression Surgical History Hysterectomy Left knee surgery Gastric bypass revision Gastric surgery Gastric resection/Justyna-en-Y Cholecystectomy x2 Back surgery involving T12 through S1 fusion Appendectomy Social History She reports that she quit smoking 3 days ago. She has never used smokeless tobac co. No history on file for alcohol use and drug use. Family History family history is not on file. Allergies Amitriptyline, Maxalt [rizatriptan], Bee venom protein (honey bee), and Seasonal e (91) [levonorgestrel-ethinyl estrad] Medications I have reviewed and reconciled, where appropriate, the patient's current medicat ions. Prior to Admission medications Medication Sig Start Date End Date Taking? Authorizing Provider brexpiprazole (Rexulti) 0.25 mg tablet Take 0.25 mg by mouth 1 (one) time each d ay. Yes Historical Provider, ferrous sulfate 325 mg (65 mg iron) tablet Take 325 mg by mouth 1 (one) time eac h day with breakfast. Yes Historical Provider, gabapentin (NEURONTIN) 600 mg tablet Take 1,200 mg by mouth 3 (three) times a da y. Yes Historical Provider, levothyroxine (SYNTHROID) 125 mcg tablet Take by mouth 1 (one) time each day bef ore breakfast. Yes Historical Provider, mirtazapine (REMERON) 15 mg tablet Take 15 mg by mouth 1 (one) time each day at night. Yes Historical Provider, multivitamin (THERAGRAN) tablet Take 1 tablet by mouth 1 (one) time each day. Yes Historical Provider, ondansetron (ZOFRAN-ODT) 4 mg dispersible tablet Take 4 mg by mouth every 8 (eig ht) hours if needed for nausea or vomiting. Yes Historical Provider, pantoprazole (PROTONIX) 40 mg EC tablet Take 40 mg by mouth 1 (one) time each da y before breakfast. Do not crush, chew, or split. Yes Historical Provider, sucralfate (CARAFATE) 1 gram tablet Take 1 g by mouth 4 (four) times a day. Ye s Historical Provider, venlafaxine XR (EFFEXOR-XR) 150 mg 24 hr capsule Take 150 mg by mouth 1 (one) ti me each day. Do not crush or chew. Yes Historical Provider, Review Of Systems Review of Systems Ten point review of systems obtained, negative unless otherwise specified in HPI Physical Exam Physical Exam General: No acute distress, sitting upright, significant other at bedside HEENT: GABRIEL, oral mucosa moist, neck supple, NC/AT head, patient has prostatic teeth in upper and lower jaw Cardiovascular: S1-S2 positive, pulse is regular rate and rhythm Pulmonary: Clear to auscultation bilaterally, no wheezing no rhonchi no rales, no accessory muscle use Abdomen: Soft, tenderness in periumbilical as well as left portion of abdomen, nondistended, bowel sounds present all 4 quadrants, no rigidity, no rebound, no guarding Extremities: No cyanosis, no edema, peripheral pulses intact Neuro: No acute deficits appreciated, patient awake alert oriented x3 Psych: Mood stable Problem List Principal Problem: Colitis Assessment and Plan Intractable abdominal pain Crohn's disease flare History of gastric bypass -follow-up bariatric surgery consult with Dr. Lowry -follow-up Gastroenterology consultation for further input recommendations with regards to colitis on CT imaging -continue pain control -continue full liquid diet and advanced as tolerated with NPO after midnight -pharmacy consulted to help convert as many home medications to IV as possible -continue to monitor vital signs per unit protocol -continue Flagyl antibiotics empirically, further antibiotic mid to renally day based on clinical status as well as lab results. -follow-up repeat stat labs History of peptic ulcer disease History of GI bleeding GERD -continue sucralfate as well as pantoprazole Depression Anxiety PTSD -continue Abilify, Remeron, Effexor Levothyroxine -continue Synthroid Deep vein thrombosis prophylaxis -SCD, Rishi's, no chemoprophylaxis as patient is anemic, and will likely receive G I procedure See orders for more details YVONNE CORTEZ MD 03/23/21 documented in this encounter Procedure Notes * Carson Cisse MD - 03/27/2021 10:28 AM EDT Associated Order(s): COLONOSCOPY [facility] Patient Name: Ada Ayoub Date of : 1980 Age: 40 Procedure Date: 03/27/2021 9:53 AM Admit Type: Inpatient Room: Room 1 Gender: Female Procedure: Colonoscopy Indications: R/o colitis, R/o Crohn's dz Providers: CARSON CISSE MD (Doctor) Referring MD: Requesting Provider: Medicines: Monitored Anesthesia Care Complications: No immediate complications. Estimated Blood Loss: Estimated blood loss was minimal. Procedure: Pre-Anesthesia Assessment: - ASA Grade Assessment: III - A patient with severe systemic disease. The risks, benefits, alternatives, indications and techniques of the procedure have been discussed with the patient today. They have been given an opportunity to ask questions and all their questions have been answered fully and satisfactorily. They are aware of potential risks that include and are not limited to: reaction to anesthesia, intestinal perforation, hemorrhage, splenic injury potentially requiring splenectomy, perforation requiring exploratory laparotomy,infection including infection from endoscope, and possible ostomy, respiratory failure, DE, arrhythmia, missed polyps/lesions and exacerbation of diverticulitis. After I obtained informed consent, the scope was passed under direct vision. Throughout the procedure the patient's blood pressure, pulse, and oxygen saturations were monitored continuously. The Colonoscope was introduced through the anus and advanced to the terminal ileum. The patient tolerated the procedure well. The quality of the bowel preparation was fair. The colonoscopy was technically difficult and complex due to suboptimal bowel prep and significant looping. Successful completion of the procedure was aided by applying abdominal pressure and lavage. Findings: The terminal ileum appeared normal. Internal hemorrhoids were found during retroflexion. The hemorrhoids were medium-sized. The exam was otherwise without abnormality. There is no endoscopic evidence of inflammation, mass, polyps or colitis in the entire colon. Biopsies for histology were taken with a cold forceps from the ascending colon and descending colon for evaluation of microscopic colitis. Impression: - Preparation of the colon was fair. - The examined portion of the ileum was normal. - Internal hemorrhoids. - The examination was otherwise normal. - Biopsies were taken with a cold forceps from the ascending colon and descending colon for evaluation of microscopic colitis. - No evidence of Crohn's disease. - Redundant colon. - Irritable bowel syndrome. Recommendation: - Use Citrucel two tablets PO daily. - Align 1 tab po qd. CARSON CISSE MD 03/27/2021 10:28:21 AM This report has been signed electronically.CARSON CISSE MD Number of Addenda: 0 Note Initiated On: 03/27/2021 9:53 AM * Carson Cisse MD - 03/25/2021 10:41 AM EDT Associated Order(s): UPPER GI ENDOSCOPY [facility] Patient Name: Ada Ayoub Date of : 1980 Age: 40 Procedure Date: 03/25/2021 10:08 AM Admit Type: Inpatient Room: Room 1 Gender: Female Procedure: Upper GI endoscopy Indications: Melena Providers: CARSON CISSE MD (Doctor) Referring MD: Requesting Provider: Medicines: Monitored Anesthesia Care Complications: No immediate complications. Estimated Blood Loss: Estimated blood loss was minimal. Procedure: Pre-Anesthesia Assessment: - ASA Grade Assessment: III - A patient with severe systemic disease. The risks, benefits, alternatives, indications and techniques of the procedure have been discussed with the patient today. They have been given an opportunity to ask questions and all their questions have been answered fully and satisfactorily. They are aware of potential risks that include and are not limited to: reaction to anesthesia, dental damage, intestinal perforation,infection including infection from endoscope, and hemorrhage. After obtaining informed consent, the scope was passed under direct vision. Throughout the procedure the patient's blood pressure, pulse, and oxygen saturations were monitored continuously. The gastroscope was introduced through the mouth, and advanced to the second part of duodenum. Findings: The examined esophagus was normal. Evidence of a gastric bypass was found. A gastric pouch with a normal size was found. The staple line appeared intact. The gastrojejunal anastomosis was characterized by ulceration. This was traversed. The odypzjrk-ef-njiqfoe limb was examined. One oozing cratered gastro-jejunal anastomotic ulcer with a visible vessel was found on the jejunal side of the G-J anastomosis. The lesion was 15 mm in largest dimension. Coagulation for hemostasis using argon plasma at 1 liter/minute and 30 new was successful. The examined jejunum was normal. Impression: - Normal esophagus. - Gastric bypass with a normal-sized pouch and intact staple line. Gastrojejunal anastomosis characterized by ulceration w/ oozing G-J ulcer. - Oozing gastro-jejunal ulcer with a visible vessel. Treated with argon plasma coagulation (APC). - Normal examined jejunum. - No specimens collected. - Marginal ulcer(s). Recommendation: - Give Protonix (pantoprazole): 8 mg/hr IV by continuous infusion. - Clear liquid diet. CARSON CISSE MD 03/25/2021 10:41:52 AM This report has been signed electronically.CARSNO CISSE MD Number of Addenda: 0 Note Initiated On: 03/25/2021 10:08 AM documented in this encounter Consult Notes * Sebastian Lowry MD - 03/24/2021 2:11 PM EDT Associated Order(s): IP CONSULT TO GENERAL SURGERY Inpatient History & Physical Ada Ayoub [id number] Assessment and Plan: Active Problems: Crohn's colitis ([facility]) Intractable abdominal pain 1. Has a history of Crohn's disease diagnosed in 2012, not being treated 2. She has had a week and half abdominal pain and diarrhea, computed tomography scan showed left-sided colitis, this is consistent with a Crohn's colitis 3. She has a history of peptic ulcer disease after gastric bypass, and has had p erforation, revisional surgery, and she says she has recurrence ulcer. She is s till smoking cigarettes and she must stop smoking 4. Right now she does not need any surgery 5. I will start trying to gather her operative notes Chief Complaint: Week and a half of nausea, diarrhea, abdominal pain HPI: Ms. Ayoub is a 32-year-old woman who suffers morbid obesity. She had a lapa roscopic gastric bypass in 2012 at [facility] she weighed 270 lb. She lost weight to 120 lb and has regained weight to 180 pounds. In 2012 she had an appendectomy, this is after gastric bypass, she says she had acute appendicitis and she was told she had Crohn's disease as well. Smoked cig arettes and in 2017 had a perforated ulcer treated with laparotomy at [facility] in [place]. In 2018 she had a revision of the gastrojejunal anastomosis since ulcer did not heal, at [facility]. Approximately year ago she had an endoscopy which revealed an ulcer and a week a nd half ago she developed abdominal pain with diarrhea. She went to hospital in [facility] the computed tomography scan revealed left-sided colitis and she was eventually transferred here. Denies any fever, chills, nausea vomiting, jaundice. Past Medical History: Past Medical History: Diagnosis Date Anxiety Crohn's disease (CMS/HCC) Hypoglycemia Peptic ulcer PTSD (post-traumatic stress disorder) Past Surgical History: Past Surgical History: Procedure Laterality Date APPENDECTOMY CHOLECYSTECTOMY GASTRIC BYPASS HYSTERECTOMY She had a for her first delivery, had ruptured uterus and emergency ce [facility] with uterine repair with her second , eventually had a hysterec mora, leaving the ovaries, she had a laparoscopic left oophorectomy for a cyst, she has a right ovary only One of her children lives with the child's father and other child lives with annetta lambert's mother Medications Prior to Admission: Medications Prior to Admission Medication Sig Dispense Refill Last Dose brexpiprazole (Rexulti) 0.25 mg tablet Take 0.25 mg by mouth 1 (one) time each day. 03/22/2021 at Unknown time ferrous sulfate 325 mg (65 mg iron) tablet Take 325 mg by mouth 1 (one) t sera each day with breakfast. 03/22/2021 at Unknown time gabapentin (NEURONTIN) 600 mg tablet Take 1,200 mg by mouth 3 (three) paloma es a day. 03/22/2021 at Unknown time levothyroxine (SYNTHROID) 125 mcg tablet Take by mouth 1 (one) time each day before breakfast. Past Week at Unknown time mirtazapine (REMERON) 15 mg tablet Take 15 mg by mouth 1 (one) time each day at night. Past Week at Unknown time multivitamin (THERAGRAN) tablet Take 1 tablet by mouth 1 (one) time each day. 03/22/2021 at Unknown time ondansetron (ZOFRAN-ODT) 4 mg dispersible tablet Take 4 mg by mouth every 8 (eight) hours if needed for nausea or vomiting. 03/23/2021 at Unknown time pantoprazole (PROTONIX) 40 mg EC tablet Take 40 mg by mouth 1 (one) time each day before breakfast. Do not crush, chew, or split. 03/23/2021 at Unknown time sucralfate (CARAFATE) 1 gram tablet Take 1 g by mouth 4 (four) times a da y. 03/22/2021 at Unknown time venlafaxine XR (EFFEXOR-XR) 150 mg 24 hr capsule Take 150 mg by mouth 1 ( one) time each day. Do not crush or chew. 03/22/2021 at Unknown time Allergies: Amitriptyline, Maxalt [rizatriptan], Bee venom protein (honey bee), a nd Seasonale (91) [levonorgestrel-ethinyl estrad] Family History: No family history on file. Social History: Social History Tobacco Use Smoking status: Former Smoker Quit date: 03/20/2021 Years since quittin.0 Smokeless tobacco: Never Used Substance Use Topics Alcohol use: Not on file Drug use: Not on file She has been homeless in the past Review of System: Pertinent items are noted in HPI. Physical Exam: Temp: [36.1 C (97 F)-36.5 C (97.7 F)] 36.1 C (97 F) Heart Rate: [48-52] 52 Resp: [16-18] 16 BP: (85-109)/(49-67) 95/67 General Appearance: awake, alert, oriented, in no acute distress Skin: there are no suspicious lesions or rashes of concern Head/Face: NCAT Eyes: EOMI Mouth/Throat: Mucosa moist, no lesions; pharynx without erythema, edema or exuda te., full dentures Lungs: Normal expansion. Clear to auscultation. No rales, rhonchi, or wheezing . Heart: Heart regular rate and rhythm Breast: BREAST EXAM: not examind Abdomen: Soft, flat, well-healed Pfannenstiel incision, well-healed midline inci paty, mild epigastric tenderness, no guarding Extremities: Extremities warm to touch, pink, with no edema. Neurologic: Alert and oriented x 3, gait normal., reflexes normal and symmetric, strength and sensation grossly normal Urogen: deferred Rectal: Not done Psych exam: alert,oriented, in NAD with a full range of affect, normal behavior and no psychotic features Labs, Imaging and Other Diagnostics: Diagnostics test reviewed: Recent Results (from the past 24 hour(s)) CBC and differential Collection Time: 03/23/21 8:42 PM Result Value Ref Range WBC 6.19 4.80 - 10.00 x1000/ul RBC 3.47 (L) 4.20 - 5.40 x1Mil/ul Hemoglobin 9.1 (L) 12.0 - 16.0 g/dl Hematocrit 29.8 (L) 37.0 - 47.0 % MCV 85.9 81.0 - 99.0 fL MCH 26.2 (L) 27.0 - 31.0 pg MCHC 30.5 (L) 32.2 - 37.0 g/dl RDW 16.8 (H) 11.5 - 14.5 % Platelet Count 228 130 - 400 x1000/ul MPV 11.4 9.4 - 12.4 fL Neutrophils 54.6 40.0 - 74.0 % Lymphocytes 34.7 19.0 - 48.0 % Monocytes 8.7 3.4 - 9.0 % Eosinophils 1.1 0.0 - 7.0 % Basophils 0.6 0.0 - 2.0 % Immature Granulocytes 0.3 0.0 - 0.5 % Nucleated RBCs 0.00 0.00 - 0.20 % Abs. Neutrophils 3.37 1.92 - 8.31 x1000/ul Abs. Lymphocyte 2.15 1.20 - 3.70 x1000/ul Abs. Monocytes 0.54 0.14 - 0.97 x1000/ul Abs. Eosinophils 0.07 0.00 - 0.76 x1000/ul Abs. Basophils 0.04 0.00 - 0.22 x1000/ul Abs. Immature Gran. 0.02 0.00 - 0.02 x1000/ul Abs. Nucleated RBCs 0.00 0.00 - 0.02 x1000/ul Magnesium Collection Time: 03/23/21 8:42 PM Result Value Ref Range Magnesium 2.0 1.6 - 2.6 mg/dl Comprehensive metabolic panel Collection Time: 03/23/21 8:42 PM Result Value Ref Range AST 12 (L) 15 - 37 IU/L ALT 16 13 - 56 IU/L Alkaline Phosphatase 56 50 - 136 mIU/ml Total Bilirubin 0.80 0.20 - 1.00 mg/dl Blood Urea Nitrogen 7 7 - 18 mg/dl Creatinine 0.67 0.51 - 0.95 mg/dl Glomerular Filtration Rate >90.00 mL/min/1.73m2 Glucose 48 (LL) 70 - 110 mg/dl Calcium 8.2 (L) 8.5 - 10.1 mg/dl Total Protein 6.6 6.4 - 8.2 g/dl Albumin 3.0 (L) 3.4 - 5.0 g/dl Sodium 140 136 - 145 mEq/L Potassium 3.3 (L) 3.5 - 5.1 mEq/L Chloride 114.0 (H) 98.0 - 107.0 mEq/L Anion Gap 8.3 Carbon Dioxide 21.0 21.0 - 32.0 mMol/L C-reactive protein Collection Time: 03/23/21 8:42 PM Result Value Ref Range C-Reactive Protein (Non-Cardiac) <2.90 0.00 - 3.00 mg/L Lactic acid Collection Time: 03/23/21 8:42 PM Result Value Ref Range Lactic Acid 1.8 0.4 - 2.0 mMol/L POCT whole blood glucose unsolicited results Collection Time: 03/23/21 10:25 PM Result Value Ref Range Glucose, Fingerstick 103 70 - 110 mg/dl CBC and differential Collection Time: 03/24/21 4:29 AM Result Value Ref Range WBC 6.03 4.80 - 10.00 x1000/ul RBC 3.58 (L) 4.20 - 5.40 x1Mil/ul Hemoglobin 9.3 (L) 12.0 - 16.0 g/dl Hematocrit 30.2 (L) 37.0 - 47.0 % MCV 84.4 81.0 - 99.0 fL MCH 26.0 (L) 27.0 - 31.0 pg MCHC 30.8 (L) 32.2 - 37.0 g/dl RDW 16.3 (H) 11.5 - 14.5 % Platelet Count 230 130 - 400 x1000/ul MPV 11.6 9.4 - 12.4 fL Neutrophils 46.6 40.0 - 74.0 % Lymphocytes 41.1 19.0 - 48.0 % Monocytes 9.1 (H) 3.4 - 9.0 % Eosinophils 2.0 0.0 - 7.0 % Basophils 1.0 0.0 - 2.0 % Immature Granulocytes 0.2 0.0 - 0.5 % Nucleated RBCs 0.00 0.00 - 0.20 % Abs. Neutrophils 2.81 1.92 - 8.31 x1000/ul Abs. Lymphocyte 2.48 1.20 - 3.70 x1000/ul Abs. Monocytes 0.55 0.14 - 0.97 x1000/ul Abs. Eosinophils 0.12 0.00 - 0.76 x1000/ul Abs. Basophils 0.06 0.00 - 0.22 x1000/ul Abs. Immature Gran. 0.01 0.00 - 0.02 x1000/ul Abs. Nucleated RBCs 0.00 0.00 - 0.02 x1000/ul Magnesium Collection Time: 03/24/21 4:29 AM Result Value Ref Range Magnesium 2.0 1.6 - 2.6 mg/dl Comprehensive metabolic panel Collection Time: 03/24/21 4:29 AM Result Value Ref Range AST 12 (L) 15 - 37 IU/L ALT 17 13 - 56 IU/L Alkaline Phosphatase 53 50 - 136 mIU/ml Total Bilirubin 0.70 0.20 - 1.00 mg/dl Blood Urea Nitrogen 6 (L) 7 - 18 mg/dl Creatinine 0.62 0.51 - 0.95 mg/dl Glomerular Filtration Rate >90.00 mL/min/1.73m2 Glucose 91 70 - 110 mg/dl Calcium 8.2 (L) 8.5 - 10.1 mg/dl Total Protein 6.2 (L) 6.4 - 8.2 g/dl Albumin 2.8 (L) 3.4 - 5.0 g/dl Sodium 141 136 - 145 mEq/L Potassium 3.9 3.5 - 5.1 mEq/L Chloride 113.0 (H) 98.0 - 107.0 mEq/L Anion Gap 8.1 Carbon Dioxide 23.8 21.0 - 32.0 mMol/L Lab Results Component Value Date WBC 6.03 03/24/2021 HGB 9.3 (L) 03/24/2021 HCT 30.2 (L) 03/24/2021 MCV 84.4 03/24/2021 PLT 230 03/24/2021 Lab Results Component Value Date GLUCOSE 91 03/24/2021 CALCIUM 8.2 (L) 03/24/2021 NA 141 03/24/2021 K 3.9 03/24/2021 CO2 23.8 03/24/2021 CL 113.0 (H) 03/24/2021 BUN 6 (L) 03/24/2021 CREATININE 0.62 03/24/2021 Current Imaging No image results found. CT from [facility] Signature: SEBASTIAN LOWRY MD Date: 03/24/2021 Time: 2:12 PM * Payam Martin PA - 03/24/2021 11:19 AM EDT Associated Order(s): Inpatient consult to gastroenterology Inpatient consult to gastroenterology Consult performed by: KALEB Hagan Consult ordered by: Yvonne Conrad MD Reason for consult: Pancolitis History Of Present Illness Ada Ayoub is a 40 y.o. female we are asked to see for pancolitis. This is a p atient was transferred from the [place] due to abdominal pain associated with diarrhea and having had some black stools. The patient has reported histor y of peptic ulcer disease with a history of anastomotic ulcer and perforation in the past. She has a history of gastric bypass and states that she was diagnosed with Crohn's disease during her surgery but not during a colonoscopy. She sta arthur that she was placed on Pentasa in the past for her colitis but discontinued the agent due to her anxiety and PTSD. She states she has not had a colonoscopy in several years and she has not seen in GI during this time frame. She denies any bright red blood per rectum or significant weight loss. She has had loose to watery bowel movements anywhere from 6 to 9 times a day with some nocturnal s ymptoms. She denies any recent antibiotic use within the last 6 months, travel out of the country, contacts with similar symptoms, new medications or new water sources. She denies any NSAID usage and states she has been taking her Protonix and Carafate faithfully. She however states that she is to have a revision of her gastric bypass as she persists having recurrent ulcers. Past Medical History She has a past medical history of Anxiety, Crohn's disease (CMS/HCC), Hypoglycem ia, Peptic ulcer, and PTSD (post-traumatic stress disorder). Surgical History She has a past surgical history that includes Appendectomy; Cholecystectomy; Hys terectomy; and Gastric bypass. Social History She reports that she quit smoking 4 days ago. She has never used smokeless tobac co. No history on file for alcohol use and drug use. Family History family history is not on file. Allergies Amitriptyline, Maxalt [rizatriptan], Bee venom protein (honey bee), and Seasonal e (91) [levonorgestrel-ethinyl estrad] Medications Medications I have reviewed and reconciled, where appropriate, the patient's current medicat ions. Review of Systems Constitutional: Positive for appetite change (Decreased). HENT: Negative for trouble swallowing. Respiratory: Negative for shortness of breath. Cardiovascular: Negative for chest pain. Gastrointestinal: Positive for abdominal pain, blood in stool (Black), diarrhea, nausea and vomiting. Physical Exam Vitals reviewed. Constitutional: Appearance: Normal appearance. HENT: Head: Normocephalic. Cardiovascular: Rate and Rhythm: Normal rate and regular rhythm. Heart sounds: Normal heart sounds. Pulmonary: Breath sounds: Normal breath sounds. Abdominal: General: Abdomen is flat. Bowel sounds are normal. Palpations: Abdomen is soft. Tenderness: There is generalized abdominal tenderness. Skin: General: Skin is warm and dry. Neurological: Mental Status: She is alert and oriented to person, place, and time. Last Recorded Vitals Blood pressure 95/67, pulse 52, temperature 36.1 C (97 F), temperature s ource Temporal, resp. rate 16, height 1.72 m (5' 7.72"), weight 82 kg (180 lb 12 .4 oz), SpO2 98 %. Relevant Results I have reviewed the available lab and diagnostic results as appropriate. Lab Results Component Value Date WBC 6.03 03/24/2021 HGB 9.3 (L) 03/24/2021 HCT 30.2 (L) 03/24/2021 MCV 84.4 03/24/2021 PLT 230 03/24/2021 Lab Results Component Value Date GLUCOSE 91 03/24/2021 CALCIUM 8.2 (L) 03/24/2021 NA 141 03/24/2021 K 3.9 03/24/2021 CO2 23.8 03/24/2021 CL 113.0 (H) 03/24/2021 BUN 6 (L) 03/24/2021 CREATININE 0.62 03/24/2021 CRP: <2.9 Assessment/Plan Active Problems: Crohn's colitis (CMS/HCC) Intractable abdominal pain This is a 40-year-old female we have been asked to see secondary to pancolitis a lthough her computed [facility] from [facility] shows predominately a l eft-sided colitis with some transverse colon involvement as well. She however h ad does not have white count nor acute phase reactants elevated. She is noted t o be slightly anemic and reports black stools and with her ongoing pain along wi th nausea we have discussed proceeding with a gastroscopy for tomorrow. If her gastroscopy is negative she may also require colonoscopy the following day. Colonoscopy/gastroscopy was discussed with the patient including RABIT specifica lly but not limited to perforation, bleeding, infection, peritonitis, surgical i ntervention and/or . The patient has been fully informed and educated regar ding the possibility of missing underlying pathology such as ulcer, polyp or mal ignancy. The patient is agreeable to endoscopic intervention at this time. I will place her on Protonix b.i.d. and continue her oral Carafate. It is possi ble that she has a persisting anastomotic ulcer and if she has failed medicinal therapy then revision would certainly be needed in the future. I will not place her on to IV steroids until she is given a diagnosis of inflammatory bowel dise ase but I will order stool studies to rule out any enteric infection. We will m alan further recommendations based on her clinical course and the findings of her exams and I will discuss case with Dr. Cisse as well. We thank you for the con sult. Associated attestation - Carson Cisse MD - 03/24/2021 1:20 PM EDT Patient seen with EPO PA 40-year-old female with a history of gastric bypass and Crohn's disease now bañuelos sferred from [facility] with abdominal pain diarrhea and black stools. Patient has a prior history of peptic ulcer disease and marginal ulcer status po st gastric bypass. She also has a historyof Crohn's disease for which he is burke ated with 5-ASA (no longer taking this). Her last colonoscopy was apparently many years ago. Patient notes chronic diarr hea with up to 9 bowel movements a day small volume Patient also has chronic reflux for which he takes Protonix and Carafate she den ies nonsteroidals She is status post cholecystectomy gastric bypass and hysterectomy Physical exam mild epigastric tenderness Results from last 7 days Lab Units 03/24/21 0429 WBC x1000/ul 6.03 HEMOGLOBIN g/dl 9.3* HEMATOCRIT % 30.2* PLATELETS x1000/ul 230 Results from last 7 days Lab Units 03/24/21 0429 SODIUM mEq/L 141 POTASSIUM mEq/L 3.9 CHLORIDE mEq/L 113.0* CO2 mMol/L 23.8 BUN mg/dl 6* CREATININE mg/dl 0.62 CALCIUM mg/dl 8.2* PROTEIN TOTAL g/dl 6.2* ALK PHOS mIU/ml 53 ALT IU/L 17 AST IU/L 12* GLUCOSE mg/dl 91 MCV 84\\ Impression 40-year-old female status post gastric bypass with 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 The patient is slightly anemic and reports me lanotic like stools with chronic nausea and reflux in the past on Protonix. plan upper endoscopy to rule out recurrent marginal ulcer Wednesday/ colonoscopy planned Wednesday/ Protonix twice a day along with Carafate Thank you for this consultation documented in this encounter Nursing Notes * Lore Ramsey RN - 03/27/2021 11:55 AM EDT Assessment per fs- Pt A&O x4, can make needs known, LSC, abd soft, slightly tender, BSP, LBM 03/26, voiding. Pt oob independently. IVF^. Morphine x1 for abd pain. Pt resting in bed with call berry in reach. * Andrei Vera RN - 03/27/2021 1:31 AM EDT Assessment per FS; Pt AAOx3, VSS, iv site intact and patent w/ fluids and proton ix infusing, hard stick for IV's, medicated for pain via eMAR, colon prep for co lonoscopy later on today, call berry within reach and safety maintained. * Sharyn Moe RN - 03/26/2021 12:38 PM EDT VS and assessment per FS. Pt AAO, RA, independent. Medicated for nausea and pain per EMAR with some relief. Tolerating clear liquid diet. Pt ambulating in halls. Comfort and safety maintained. Will continue to monitor. EOSS - Medicated for pain per EMAR. Pt showered, BM before prep administered. St arted bowel prep for colonscopy tomorrow, NPO after midnight. Will make oncoming RN aware. Safety maintained. * Andrei Vera RN - 03/26/2021 12:20 AM EDT Assessment per FS; Pt AAOx3, VSS, iv site intact and patent w/ fluids and proton ix infusing, hard stick for IV's, awaiting stool sample, contact p/c's maintaine d, R/O for C. Diff, medicated for pain via eMAR, Upper GI endoscopy was done ye , call berry within reach and safety maintained. * Ada Zelaya GN - 03/25/2021 12:53 PM EDT Assessment per fs. Pt A/O x3. VSS. Can make needs known. Denies SOB. C/o abd alice n- medicated per MAR with relief. Pt OOB independently. Contact precautions main tained for C.diff rule out- pending stool sample, no BM. EOSS: Previous assessment unchanged. Safety and comfort maintained. * Pita Harris RN - 03/25/2021 10:54 AM EDT Report called to Ada HONG 1st floor. Pt is stable. * Pita Harris RN - 03/25/2021 10:[address] cisse spoke to the pt regarding her procedure and findings. Pt is stable. * Elaina James RN - 03/25/2021 1:05 AM EDT Assessment per nursing flow sheet, AAO, able to make her needs known. LSC, denies SOB or difficulty breathing. C/o abdominal pain and nausea, medicated per MAR with relief. OOB independently with steady gait. Contact precautions maintained. No BM. Pending stool sample. Will continue to monitor, call berry within reach. EOSS: medicated one more time for pain and nausea with relief, assessment unchan ged, NPO, safety and comfort maintained. * Lucy Posada RN - 03/24/2021 6:27 PM EDT Assessment per FS. Pt OOB independently to BR. Awaiting stool sample, C-DIFF pre cautions in effect. NPO, gastroscopy scheduled for tomorrow. Medicated x1 with m orphine for abdominal pain. Slept on and off throughout shift. * Porsha Anderson RN - 03/24/2021 5:21 AM EDT assesment per flowsheet. Pt slept well through the night in long intervals. Medi cated for c/o pain with relief. oob to br- voids well. Maintained NPO. IVF infus ing well. Cooperative with care. Comfort and safety maintained. callbell in reac h * Harley Schwarz RN - 03/23/2021 7:52 PM EDT EOSS: Assessments and vitals per flowsheets. Pt admitted to 1st floor 1533. RA 9 8%. Pt complaining of 7/10 abdominal pain. Call out to MD for pain meds. Pt stat ed no diahrrea today. 3 instinces of diahrrea yesterday. Pt stated for the past 5 days her pain has increased and her nutritional intake has diminished. Alt and orient. Skin check verified via 2 nurse verification. @1800- New medications ordered. Waiting for pharmacy verification in order to gi ve iv morphine. Bed in lowest position, call berry in reach. documented in this encounter Miscellaneous Notes * Perioperative Nursing Note - Veronica De Los Santos RN - 03/27/2021 10:[address] Cisse spoke with patient about procedure * Perioperative Nursing Note - Veronica De Los Santos RN - 03/27/2021 10:29 AM EDT Report to Lore Hong * Care Plan - Andrei Vera RN - 03/27/2021 1:30 AM EDT Problem: Pain - Adult Goal: Verbalizes/displays adequate comfort level or baseline comfort level Outcome: Progressing Problem: Infection - Adult Goal: Absence of infection during hospitalization Outcome: Progressing Problem: Safety Adult - Fall Goal: Free from fall injury Outcome: Progressing Problem: Discharge Planning Goal: Discharge to home or other facility with appropriate resources Outcome: Progressing Problem: Chronic Conditions and Co-morbidities Goal: Patient's chronic conditions and co-morbidity symptoms are monitored and m aintained or improved Outcome: Progressing Problem: Gastrointestinal - Adult Goal: Minimal or absence of nausea and vomiting Outcome: Progressing Goal: Maintains or returns to baseline bowel function Outcome: Progressing Goal: Maintains adequate nutritional intake Outcome: Progressing Goal: Establish and maintain optimal ostomy function Outcome: Progressing * Care Plan - Sharyn Moe RN - 03/26/2021 12:38 PM EDT Problem: Pain - Adult Goal: Verbalizes/displays adequate comfort level or baseline comfort level Outcome: Progressing Flowsheets (Taken 03/26/2021 1237) Verbalizes/displays adequate comfort level or baseline comfort level: Administer analgesics based on type and severity of pain and evaluate response Consider cultural and social influences on pain and pain management Encourage patient to monitor pain and request assistance Assess pain using appropriate pain scale Implement non-pharmacological measures as appropriate and evaluate response Notify Licensed Independent Practitioner if interventions unsuccessful or patie nt reports new pain Problem: Infection - Adult Goal: Absence of infection during hospitalization Outcome: Progressing Problem: Safety Adult - Fall Goal: Free from fall injury Outcome: Progressing Problem: Discharge Planning Goal: Discharge to home or other facility with appropriate resources Outcome: Progressing Problem: Chronic Conditions and Co-morbidities Goal: Patient's chronic conditions and co-morbidity symptoms are monitored and m aintained or improved Outcome: Progressing Problem: Gastrointestinal - Adult Goal: Minimal or absence of nausea and vomiting Outcome: Progressing Flowsheets (Taken 03/26/2021 1237) Minimal or absence of nausea and vomiting: Administer IV fluids as ordered to ensure adequate hydration Administer ordered antiemetic medications as needed Nutrition consult to assist patient with adequate nutrition and appropriate shirley d choices Provide nonpharmacologic comfort measures as appropriate Goal: Maintains or returns to baseline bowel function Outcome: Progressing Flowsheets (Taken 03/26/2021 1237) Maintains or returns to baseline bowel function: Assess bowel function Administer ordered medications as needed Encourage mobilization and activity Encourage oral fluids to ensure adequate hydration Administer IV fluids as ordered to ensure adequate hydration Nutrition consult to assist patient with appropriate food choices Goal: Maintains adequate nutritional intake Outcome: Progressing Flowsheets (Taken 03/26/2021 1237) Maintains adequate nutritional intake: Monitor percentage of each meal consumed Obtain nutritional consult as needed Identify factors contributing to decreased intake, treat as appropriate Monitor I&O, weight and lab values Goal: Establish and maintain optimal ostomy function Outcome: Progressing Flowsheets (Taken 03/26/2021 1237) Establish and maintain optimal ostomy function: Assess bowel function Administer ordered medications as needed Encourage mobilization and activity Administer IV fluids as ordered to ensure adequate hydration Encourage oral fluids to ensure adequate hydration * Madiha Salomon - Andrei Vera RN - 03/26/2021 12:17 AM EDT Problem: Pain - Adult Goal: Verbalizes/displays adequate comfort level or baseline comfort level Outcome: Progressing Problem: Infection - Adult Goal: Absence of infection during hospitalization Outcome: Progressing Problem: Safety Adult - Fall Goal: Free from fall injury Outcome: Progressing Problem: Discharge Planning Goal: Discharge to home or other facility with appropriate resources Outcome: Progressing Problem: Chronic Conditions and Co-morbidities Goal: Patient's chronic conditions and co-morbidity symptoms are monitored and m aintained or improved Outcome: Progressing Problem: Gastrointestinal - Adult Goal: Minimal or absence of nausea and vomiting Outcome: Progressing Goal: Maintains or returns to baseline bowel function Outcome: Progressing Goal: Maintains adequate nutritional intake Outcome: Progressing Goal: Establish and maintain optimal ostomy function Outcome: Progressing * Madiha Salomon - Ada Zelaya GN - 03/25/2021 7:13 PM EDT Problem: Pain - Adult Goal: Verbalizes/displays adequate comfort level or baseline comfort level Outcome: Progressing Problem: Infection - Adult Goal: Absence of infection during hospitalization Outcome: Progressing Problem: Safety Adult - Fall Goal: Free from fall injury Outcome: Progressing Problem: Discharge Planning Goal: Discharge to home or other facility with appropriate resources Outcome: Progressing Problem: Chronic Conditions and Co-morbidities Goal: Patient's chronic conditions and co-morbidity symptoms are monitored and m aintained or improved Outcome: Progressing Problem: Gastrointestinal - Adult Goal: Minimal or absence of nausea and vomiting Outcome: Progressing Goal: Maintains or returns to baseline bowel function Outcome: Progressing Goal: Maintains adequate nutritional intake Outcome: Progressing Goal: Establish and maintain optimal ostomy function Outcome: Progressing * Perioperative Nursing Note - Kristina Zeng RN - 03/25/2021 9:22 AM EDT Covid test from [facility] in [place] negative on 03/22/2021 * Care Plan - Elaina Jmaes RN - 03/25/2021 3:47 AM EDT Problem: Infection - Adult Goal: Absence of infection during hospitalization Outcome: Progressing Flowsheets (Taken 03/25/2021345) Absence of infection during hospitalization: Assess and monitor for signs and symptoms of infection Monitor lab/diagnostic results Monitor all insertion sites i.e., indwelling lines, tubes and drains [place] appropriate cooling/warming therapies per order Administer medications as ordered Instruct and encourage patient and family to use good hand hygiene technique Identify and instruct in appropriate isolation precautions for identified infec tion/condition Problem: Safety Adult - Fall Goal: Free from fall injury Outcome: Progressing Flowsheets (Taken 03/25/2021345) Free from fall injury: Assess patient frequently for physical needs [place] fall precautions as indicated by assessment Educate patient/family on patient safety, including physical limitations Modify environment to reduce risk of injury Instruct patient to call for assistance with activity based on assessment Problem: Gastrointestinal - Adult Goal: Maintains or returns to baseline bowel function Outcome: Progressing Flowsheets (Taken 03/25/2021345) Maintains or returns to baseline bowel function: Assess bowel function Problem: Pain - Adult Goal: Verbalizes/displays adequate comfort level or baseline comfort level Outcome: Not Progressing Flowsheets (Taken 03/25/2021345) Verbalizes/displays adequate comfort level or baseline comfort level: Encourage patient to monitor pain and request assistance Assess pain using appropriate pain scale Problem: Gastrointestinal - Adult Goal: Minimal or absence of nausea and vomiting Outcome: Not Progressing Flowsheets (Taken 03/25/2021345) Minimal or absence of nausea and vomiting: Administer ordered antiemetic medicat ions as needed Goal: Maintains adequate nutritional intake Outcome: Not Progressing * Lucy Vegas RN - 03/24/2021 2:16 PM EDT Problem: Pain - Adult Goal: Verbalizes/displays adequate comfort level or baseline comfort level Outcome: Progressing Problem: Infection - Adult Goal: Absence of infection during hospitalization Outcome: Progressing Problem: Safety Adult - Fall Goal: Free from fall injury Outcome: Progressing Problem: Discharge Planning Goal: Discharge to home or other facility with appropriate resources Outcome: Progressing Problem: Chronic Conditions and Co-morbidities Goal: Patient's chronic conditions and co-morbidity symptoms are monitored and m aintained or improved Outcome: Progressing Problem: Gastrointestinal - Adult Goal: Minimal or absence of nausea and vomiting Outcome: Progressing Goal: Maintains or returns to baseline bowel function Outcome: Progressing Goal: Maintains adequate nutritional intake Outcome: Progressing Goal: Establish and maintain optimal ostomy function Outcome: Progressing * Porsha Vallecillo RN - 03/23/2021 11:42 PM EDT Problem: Pain - Adult Goal: Verbalizes/displays adequate comfort level or baseline comfort level Outcome: Progressing Problem: Infection - Adult Goal: Absence of infection during hospitalization Outcome: Progressing Problem: Safety Adult - Fall Goal: Free from fall injury Outcome: Progressing Problem: Discharge Planning Goal: Discharge to home or other facility with appropriate resources Outcome: Progressing Problem: Chronic Conditions and Co-morbidities Goal: Patient's chronic conditions and co-morbidity symptoms are monitored and m aintained or improved Outcome: Progressing Problem: Gastrointestinal - Adult Goal: Minimal or absence of nausea and vomiting Outcome: Progressing Goal: Maintains or returns to baseline bowel function Outcome: Progressing Goal: Maintains adequate nutritional intake Outcome: Progressing Goal: Establish and maintain optimal ostomy function Outcome: Progressing documented in this encounter Plan of Treatment Date/Time Name Type Priority Associated Diag noses 03/26/2021 4:15 PM EDT Calprotectin, Feces Lab Routine 03/27/2021 10:15 AM EDT Surgical Pathology Pathology and Routine Cytology Order Schedule Name Type Priority Associated Diag noses Once for 1 Occurrences starting 03/24/20 21 until 03/24/2021 Calprotectin, Feces Lab Routine Release Upon Ordering for 1 Occurrences starting 03/27/2021 until 03/30/2021 Surgical Pathology Pathology and Timed Cytology documented as of this encounter Procedures Comments Procedure Name Priority Date/Time Associated Diag nosis COLONOSCOPY 03/27/2021 10:28 AM EDT ENTERIC PATHOGENS, PCR Routine 03/26/2021 (FOR DX INSTEAD OF 4:15 PM EDT INITIAL STOOL CULTURE) CBC Routine 03/26/2021 4:28 AM EDT MAGNESIUM Routine 03/26/2021 4:28 AM EDT BASIC METABOLIC PANEL Routine 03/26/2021 4:28 AM EDT UPPER GI ENDOSCOPY 03/25/2021 10:41 AM EDT EGD 03/25/2021 GI bleed (ESOPHAGOGASTRODUODENOSCO 10:06 AM EDT PY) HC CBC W/ DIFFERENTIAL Routine 03/25/2021 4:20 AM EDT BASIC METABOLIC PANEL Routine 03/25/2021 4:20 AM EDT HC CBC W/ DIFFERENTIAL Routine 03/24/2021 4:29 AM EDT MAGNESIUM Routine 03/24/2021 4:29 AM EDT COMPREHENSIVE METABOLIC Routine 03/24/2021 PANEL 4:29 AM EDT POCT GLUCOSE METER Routine 03/23/2021 UNSOLICITED RESULTS 10:25 PM EDT HC CBC W/ DIFFERENTIAL STAT 03/23/2021 8:42 PM EDT C-REACTIVE PROTEIN Routine 03/23/2021 8:42 PM EDT MAGNESIUM STAT 03/23/2021 8:42 PM EDT LACTIC ACID Routine 03/23/2021 8:42 PM EDT COMPREHENSIVE METABOLIC STAT 03/23/2021 PANEL 8:42 PM EDT OXYGEN DAILY PROTOCOL Routine 03/23/2021 5:48 PM EDT OXYGEN DAILY PROTOCOL Routine 03/23/2021 5:48 PM EDT documented in this encounter Results * COLONOSCOPY (03/27/2021 10:28 AM EDT) Specimen Narrative Performed At This result has an attachment that is n ot available. Procedure Note Carson Cisse MD - 03/27/2021 10:[address] [facility] Patient Name: Ada Ayoub Date of : 1980 Age: 40 Procedure Date: 03/27/2021 9:53 AM Admit Type: Inpatient Room: Room 1 Gender: Female Procedure: Colonoscopy Indications: R/o colitis, R/o Crohn's dz Providers: CARSON CISSE MD (Doctor) Referring MD: Requesting Provider: Medicines: Monitored Anesthesia Care Complications: No immediate complications. Estimated Blood Loss: Estimated blood loss was minimal. Procedure: Pre-Anesthesia Assessment: - ASA Grade Assessment: III - A patient with severe systemic disease. The risks, benefits, alternatives, indications and techniques of the procedure have been discussed with the patient today. They have been given an opportunity to ask questions and all their questions have been answered fully and satisfactorily. They are aware of potential risks that include and are not limited to: reaction to anesthesia, intestinal perforation, hemorrhage, splenic injury potentially requiring splenectomy, perforation requiring exploratory laparotomy,infection including infection from endoscope, and possible ostomy, respiratory failure, DE, arrhythmia, missed polyps/lesions and exacerbation of diverticulitis. After I obtained informed consent, the scope was passed under direct vision. Throughout the procedure the patient's blood pressure, pulse, and oxygen saturations were monitored continuously. The Colonoscope was introduced through the anus and advanced to the terminal ileum. The patient tolerated the procedure well. The quality of the bowel preparation was fair. The colonoscopy was technically difficult and complex due to suboptimal bowel prep and significant looping. Successful completion of the procedure was aided by applying abdominal pressure and lavage. Findings: The terminal ileum appeared normal. Internal hemorrhoids were found during retroflexion. The hemorrhoids were medium-sized. The exam was otherwise without abnormality. There is no endoscopic evidence of inflammation, mass, polyps or colitis in the entire colon. Biopsies for histology were taken with a cold forceps from the ascending colon and descending colon for evaluation of microscopic colitis. Impression: - Preparation of the colon was fair. - The examined portion of the ileum was normal. - Internal hemorrhoids. - The examination was otherwise normal. - Biopsies were taken with a cold forceps from the ascending colon and descending colon for evaluation of microscopic colitis. - No evidence of Crohn's disease. - Redundant colon. - Irritable bowel syndrome. Recommendation: - Use Citrucel two tablets PO daily. - Align 1 tab po qd. CARSON CISSE MD 03/27/2021 10:28:21 AM This report has been signed electronically.CARSON CISSE MD Number of Addenda: 0 Note Initiated On: 03/27/2021 9:53 AM * Enteric Pathogens, PCR (for Diagnosis instead of initial Stool Culture) (03/26/2021 4:15 PM EDT) [facility] Campylobacter Not Detected Not Detected [facility] Norovirus Not Detected Not Detected [facility] Rotavirus Not Detected Not Detected [facility] Salmonella Not Detected Not Detected [facility] Shiga Toxin 1 Not Detected Not Detected [facility] Shiga Toxin 2 Not Detected Not Detected [facility] Shigella Not Detected Not Detected [facility] Vibrio Not Detected Not Detected [facility] Y. Not Detected Not Detected [facility] enterocolitica Comment: LABORATORIES Enteric Pathogen Panel: Testing performed by reverse communications professor, PCR and array hybridization. A negative test result does not rule out the presence of disease The above 9 analytes were performed by [facility] [address] [place] [address], ,[place] [address] Specimen Stool - Rectum structure (body structure) Performing Organization Address [facility] P jamel Number [facility] [address] [place] [address] CRISTIAN TOMAS MD * Magnesium (03/26/2021 4:28 AM EDT) [facility] Magnesium 1.8 1.6 - 2.6 mg/dl [facility] Comment: LABORATORIES The above 1 analytes were performed by [facility] [address] [place] [address], ,[place] [address] Specimen Serum or Plasma Performing Organization Address [facility] P jamel Number [facility] [address] [place] [address] CRISTIAN TOMAS MD * Basic metabolic panel (03/26/2021 4:28 AM EDT) [facility] Blood Urea 5 (L) 7 - 18 mg/dl [facility] Nitrogen LABORATORIES Creatinine 0.79 0.51 - 0.95 mg/dl [facility] Comment: LABORATORIES N-Acetylcysteine (NAC) and Metamizole have the potential to falsely depress Creatinine results. Baseline values before medication adminstration are recommended. Patients undergoing treatment with phenindione will have falsely depressed results. Patients on phenindione therapy should be tested with an alternative CREA method. Toxic levels of acetaminophen may lead to falsely depressed results for patient samples. Glomerular 81.00 mL/min/1.73m2 [facility] Filtration Rate Comment: LABORATORIES GFR Reference Ranges: Normal Function or Mild Renal Disease,if clinically at risk: >or= 60 Moderately decreased: 30 - 59 Severely decreased: 15 - 29 Renal Failure: <15 Please note that the MDRD equation requires an additional adjustment for -Americans (multiply the GFR result by 1.210). Glomarular Filtration Rate (GFR) is estimated based on the MDRD equation, which assumes a steady state for creatinine (Yaneli Int Med 139/2 137-149, 2003), as recommended by the National Kidney Disease Education Program in conjunction with the National Institutes of Health and the National Kidney Foundation. The [place]erton method used in calculating this result is traceable to IDMS standards. Glucose 82 70 - 110 mg/dl [facility] Comment: LABORATORIES Sulfasalazine has the potential to falsely depress Glucose results. Sulfapyridine has the potential to falsely elevate Glucose results. Baseline values before medication administration are recommended. Calcium 8.0 (L) 8.5 - 10.1 mg/dl [facility] Sodium 140 136 - 145 mEq/L [facility] Potassium 3.6 3.5 - 5.1 mEq/L [facility] Chloride 110.0 (H) 98.0 - 107.0 mEq/L [facility] Anion Gap 6.7 [facility] Carbon Dioxide 26.9 21.0 - 32.0 mMol/L [facility] Comment: LABORATORIES The above 10 analytes were performed by [facility] [address] [place] [address],[facility] [id number],[place] [address] Specimen Serum or Plasma Performing Organization Address City/State/ZIP Code P jamel Number [facility] [address] [place] [address] CRISTIAN TOMAS MD * CBC (Hemogram) (03/26/2021 4:28 AM EDT) WBC 4.62 (L) 4.80 - 10.00 [facility] x1000/ul LABORATORIES RBC 3.66 (L) 4.20 - 5.40 x1Mil/ul [facility] Hemoglobin 9.4 (L) 12.0 - 16.0 g/dl [facility] Hematocrit 30.0 (L) 37.0 - 47.0 % [facility] MCV 82.0 81.0 - 99.0 fL [facility] MCH 25.7 (L) 27.0 - 31.0 pg [facility] MCHC 31.3 (L) 32.2 - 37.0 g/dl [facility] RDW 15.9 (H) 11.5 - 14.5 % [facility] Platelet Count 232 130 - 400 x1000/ul [facility] MPV 10.8 9.4 - 12.4 fL [facility] Nucleated RBCs 0.00 0.00 - 0.20 % [facility] Abs. Nucleated 0.00 0.00 - 0.02 x1000/ul [facility] RBCs Comment: LABORATORIES The above 12 analytes were performed by [facility] [address] [place] [address]# [id number],[place] [address] Specimen Whole Blood Performing Organization Address City/State/[facility] Code P jamel Number [facility] [address] [place] [address] CRISTIAN TOMAS MD * UPPER GI ENDOSCOPY (03/25/2021 10:41 AM EDT) Specimen Narrative Performed At This result has an attachment that is n ot available. Procedure Note Carson Cisse MD - 03/25/2021 10:[address] [facility] Patient Name: Ada Ayoub Date of : 1980 Age: 40 Procedure Date: 03/25/2021 10:08 AM Admit Type: Inpatient Room: Room 1 Gender: Female Procedure: Upper GI endoscopy Indications: Melena Providers: CARSON CISSE MD (Doctor) Referring MD: Requesting Provider: Medicines: Monitored Anesthesia Care Complications: No immediate complications. Estimated Blood Loss: Estimated blood loss was minimal. Procedure: Pre-Anesthesia Assessment: - ASA Grade Assessment: III - A patient with severe systemic disease. The risks, benefits, alternatives, indications and techniques of the procedure have been discussed with the patient today. They have been given an opportunity to ask questions and all their questions have been answered fully and satisfactorily. They are aware of potential risks that include and are not limited to: reaction to anesthesia, dental damage, intestinal perforation,infection including infection from endoscope, and hemorrhage. After obtaining informed consent, the scope was passed under direct vision. Throughout the procedure the patient's blood pressure, pulse, and oxygen saturations were monitored continuously. The gastroscope was introduced through the mouth, and advanced to the second part of duodenum. Findings: The examined esophagus was normal. Evidence of a gastric bypass was found. A gastric pouch with a normal size was found. The staple line appeared intact. The gastrojejunal anastomosis was characterized by ulceration. This was traversed. The eyiblvtd-tp-gmznagh limb was examined. One oozing cratered gastro-jejunal anastomotic ulcer with a visible vessel was found on the jejunal side of the G-J anastomosis. The lesion was 15 mm in largest dimension. Coagulation for hemostasis using argon plasma at 1 liter/minute and 30 new was successful. The examined jejunum was normal. Impression: - Normal esophagus. - Gastric bypass with a normal-sized pouch and intact staple line. Gastrojejunal anastomosis characterized by ulceration w/ oozing G-J ulcer. - Oozing gastro-jejunal ulcer with a visible vessel. Treated with argon plasma coagulation (APC). - Normal examined jejunum. - No specimens collected. - Marginal ulcer(s). Recommendation: - Give Protonix (pantoprazole): 8 mg/hr IV by continuous infusion. - Clear liquid diet. CARSON CISSE MD 03/25/2021 10:41:52 AM This report has been signed electronically.CARSON CISSE MD Number of Addenda: 0 Note Initiated On: 03/25/2021 10:08 AM * Basic metabolic panel (03/25/2021 4:20 AM EDT) [facility] Blood Urea 6 (L) 7 - 18 mg/dl [facility] Nitrogen LABORATORIES Creatinine 0.72 0.51 - 0.95 mg/dl [facility] Comment: LABORATORIES N-Acetylcysteine (NAC) and Metamizole have the potential to falsely depress Creatinine results. Baseline values before medication adminstration are recommended. Patients undergoing treatment with phenindione will have falsely depressed results. Patients on phenindione therapy should be tested with an alternative CREA method. Toxic levels of acetaminophen may lead to falsely depressed results for patient samples. Glomerular >90.00 mL/min/1.73m2 [facility] Filtration Rate Comment: LABORATORIES GFR Reference Ranges: Normal Function or Mild Renal Disease,if clinically at risk: >or= 60 Moderately decreased: 30 - 59 Severely decreased: 15 - 29 Renal Failure: <15 Please note that the MDRD equation requires an additional adjustment for -Americans (multiply the GFR result by 1.210). Glomarular Filtration Rate (GFR) is estimated based on the MDRD equation, which assumes a steady state for creatinine (Ayneli Int Med 139/2 137-149, 2003), as recommended by the National Kidney Disease Education Program in conjunction with the National Institutes of Health and the National Kidney Foundation. The Tuckerton method used in calculating this result is traceable to IDMS standards. Glucose 92 70 - 110 mg/dl [facility] Comment: LABORATORIES Sulfasalazine has the potential to falsely depress Glucose results. Sulfapyridine has the potential to falsely elevate Glucose results. Baseline values before medication administration are recommended. Calcium 7.8 (L) 8.5 - 10.1 mg/dl [facility] Sodium 140 136 - 145 mEq/L [facility] Potassium 3.4 (L) 3.5 - 5.1 mEq/L [facility] Chloride 110.0 (H) 98.0 - 107.0 mEq/L [facility] Anion Gap 8.7 [facility] Carbon Dioxide 24.7 21.0 - 32.0 mMol/L [facility] Comment: LABORATORIES The above 10 analytes were performed by [address],[facility]# [id number],[place] [address] Specimen Serum or Plasma Performing Organization Address City/State/[facility] Code P jamel Number [facility] [address] [place] [address] CRISTIAN TOMAS MD * CBC and differential (03/25/2021 4:20 AM EDT) WBC 4.87 4.80 - 10.00 [facility] x1000/ul LABORATORIES RBC 3.54 (L) 4.20 - 5.40 x1Mil/ul [facility] Hemoglobin 9.0 (L) 12.0 - 16.0 g/dl [facility] Hematocrit 30.0 (L) 37.0 - 47.0 % [facility] MCV 84.7 81.0 - 99.0 fL [facility] MCH 25.4 (L) 27.0 - 31.0 pg [facility] MCHC 30.0 (L) 32.2 - 37.0 g/dl [facility] RDW 15.9 (H) 11.5 - 14.5 % [facility] Platelet Count 201 130 - 400 x1000/ul [facility] MPV 11.1 9.4 - 12.4 fL [facility] Neutrophils 50.5 40.0 - 74.0 % [facility] Lymphocytes 35.7 19.0 - 48.0 % [facility] Monocytes 10.7 (H) 3.4 - 9.0 % [facility] Eosinophils 2.1 0.0 - 7.0 % [facility] Basophils 0.8 0.0 - 2.0 % [facility] Immature 0.2 0.0 - 0.5 % [facility] Granulocytes LABORATORIES Nucleated RBCs 0.00 0.00 - 0.20 % [facility] Abs. 2.46 1.92 - 8.31 x1000/ul [facility] Neutrophils LABORATORIES Abs. Lymphocyte 1.74 1.20 - 3.70 x1000/ul [facility] Abs. Monocytes 0.52 0.14 - 0.97 x1000/ul [facility] Abs. 0.10 0.00 - 0.76 x1000/ul [facility] Eosinophils LAB[facility]ATORIES Abs. 0.04 0.00 - 0.22 x1000/ul [facility] Basophils [facility] Abs. Immature 0.01 0.00 - 0.02 x1000/ul [facility] Gran. LABORATORIES Abs. Nucleated 0.00 0.00 - 0.02 x1000/ul [facility] RBCs Comment: LABORATORIES The above 24 analytes were performed by [address]# [id number], [place] [address] Specimen Whole Blood Performing Organization Address City/State/ZIP Code P jamel Number [facility] [address] [place] [address] CRISTIAN TOMAS MD * Comprehensive metabolic panel (03/24/2021 4:29 AM EDT) [facility] Signature AST 12 (L) 15 - 37 IU/L [facility] Comment: LABORATORIES Sulfasalazine and sulfapyridine have the potential to falsely depress Aspartate Aminotransferase results. Baseline values before medication administration are recommended. ALT 17 13 - 56 IU/L [facility] Comment: LABORATORIES Sulfasalazine and sulfapyridine have the potential to falsely depress Alanine Aminotransferase results. Baseline values before medication administration are recommended. Alkaline 53 50 - 136 mIU/ml [facility] Phosphatase LABORATORIES Total Bilirubin 0.70 0.20 - 1.00 mg/dl [facility] Blood Urea 6 (L) 7 - 18 mg/dl [facility] Nitrogen LABORATORIES Creatinine 0.62 0.51 - 0.95 mg/dl [facility] Comment: LABORATORIES N-Acetylcysteine (NAC) and Metamizole have the potential to falsely depress Creatinine results. Baseline values before medication adminstration are recommended. Patients undergoing treatment with phenindione will have falsely depressed results. Patients on phenindione therapy should be tested with an alternative CREA method. Toxic levels of acetaminophen may lead to falsely depressed results for patient samples. Glomerular >90.00 mL/min/1.73m2 [facility] Filtration Rate Comment: LABORATORIES GFR Reference Ranges: Normal Function or Mild Renal Disease,if clinically at risk: >or= 60 Moderately decreased: 30 - 59 Severely decreased: 15 - 29 Renal Failure: <15 Please note that the MDRD equation requires an additional adjustment for -Americans (multiply the GFR result by 1.210). Glomarular Filtration Rate (GFR) is estimated based on the MDRD equation, which assumes a steady state for creatinine (Yaneli Int Med 139/2 137-149, 2003), as recommended by the National Kidney Disease Education Program in conjunction with the National Institutes of Health and the National Kidney Foundation. The Tuckerton method used in calculating this result is traceable to IDMS standards. Glucose 91 70 - 110 mg/dl [facility] Comment: LABORATORIES Sulfasalazine has the potential to falsely depress Glucose results. Sulfapyridine has the potential to falsely elevate Glucose results. Baseline values before medication administration are recommended. Calcium 8.2 (L) 8.5 - 10.1 mg/dl [facility] Total Protein 6.2 (L) 6.4 - 8.2 g/dl [facility] Albumin 2.8 (L) 3.4 - 5.0 g/dl [facility] Sodium 141 136 - 145 mEq/L [facility] Potassium 3.9 3.5 - 5.1 mEq/L [facility] Chloride 113.0 (H) 98.0 - 107.0 mEq/L [facility] Anion Gap 8.1 [facility] Carbon Dioxide 23.8 21.0 - 32.0 mMol/L [facility] Comment: LABORATORIES The above 16 analytes were performed by [facility] [address] [place], [place] [address]l[place], ,[place] [address] Specimen Serum or Plasma Performing Organization Address [facility] Code P jamel Number [facility] [address] [place] [id number] CRISTIAN TOMAS MD * Magnesium (03/24/2021 4:29 AM EDT) Pathologist [facility] Magnesium 2.0 1.6 - 2.6 mg/dl [facility] Comment: LABORATORIES The above 1 analytes were performed by [facility] [address] [place] [address] [place],[facility]# [id number],[place] [id number] Specimen Serum or Plasma Performing Organization Address [facility] Code P jamel Number [facility] [address] [place] [id number] CRISTIAN TOMAS MD * CBC and differential (03/24/2021 4:29 AM EDT) WBC 6.03 4.80 - 10.00 [facility] x1000/ul LAB[facility]IES RBC 3.58 (L) 4.20 - 5.40 x1Mil/ul [facility] Hemoglobin 9.3 (L) 12.0 - 16.0 g/dl [facility] Hematocrit 30.2 (L) 37.0 - 47.0 % [facility] MCV 84.4 81.0 - 99.0 fL [facility] MCH 26.0 (L) 27.0 - 31.0 pg [facility] MCHC 30.8 (L) 32.2 - 37.0 g/dl [facility] RDW 16.3 (H) 11.5 - 14.5 % [facility] Platelet Count 230 130 - 400 x1000/ul [facility] MPV 11.6 9.4 - 12.4 fL [facility] Neutrophils 46.6 40.0 - 74.0 % [facility] Lymphocytes 41.1 19.0 - 48.0 % [facility] Monocytes 9.1 (H) 3.4 - 9.0 % [facility] Eosinophils 2.0 0.0 - 7.0 % [facility] Basophils 1.0 0.0 - 2.0 % [facility] Immature 0.2 0.0 - 0.5 % [facility] Granulocytes LABORATORIES Nucleated RBCs 0.00 0.00 - 0.20 % [facility] Abs. 2.81 1.92 - 8.31 x1000/ul [facility] Neutrophils LABORATORIES Abs. Lymphocyte 2.48 1.20 - 3.70 x1000/ul [facility] Abs. Monocytes 0.55 0.14 - 0.97 x1000/ul [facility] Abs. 0.12 0.00 - 0.76 x1000/ul [facility] Eosinophils LABORATORIES Abs. 0.06 0.00 - 0.22 x1000/ul [facility] Basophils LABORATORIES Abs. Immature 0.01 0.00 - 0.02 x1000/ul [facility] Gran. LABORATORIES Abs. Nucleated 0.00 0.00 - 0.02 x1000/ul [facility] RBCs Comment: LABORATORIES The above 24 analytes were performed by [facility] [address], ,[place] [address] Specimen Whole Blood Performing Organization Address [facility] P jamel Number [facility] [address] [place] [id number] CRISTIAN TOMAS MD * POCT whole blood glucose unsolicited results (03/23/2021 10:25 PM EDT) [facility] Glucose, 103 70 - 110 mg/dl [facility] Fingerstick Comment: LABORATORIES The above 1 analytes were performed by [facility] [address], ,[place] [address] Specimen Itamo-lw-Ektv Whole Blood Performing Organization Address [facility] P jamel Number [facility] [address] [place] [phone] CRISTIAN TOMAS MD * Lactic acid (03/23/2021 8:42 PM EDT) [facility] Lactic Acid 1.8 0.4 - 2.0 mMol/L [facility] Comment: LABORATORIES The above 1 analytes were performed by [facility] [address] [place], [place] [address], ,[place] [address] Specimen Plasma Performing Organization Address [facility] P jamel Number [facility] [address] [place] [phone] CRISTIAN TOMAS MD * C-reactive protein (03/23/2021 8:42 PM EDT) [facility] C-Reactive <2.90 0.00 - 3.00 mg/L [facility] Protein Comment: LABORATORIES (Non-Cardiac) The above 1 analytes were performed by [facility] [address],[facility] [id number],[place] [address] Specimen Serum or Plasma Performing Organization Address City/State/ZIP Code P jamel Number [facility] [address] [place] [address] CRISTIAN TOMAS MD * Comprehensive metabolic panel (03/23/2021 8:42 PM EDT) Pathologist [facility] [facility] AST 12 (L) 15 - 37 IU/L [facility] Comment: LABORATORIES Sulfasalazine and sulfapyridine have the potential to falsely depress Aspartate Aminotransferase results. Baseline values before medication administration are recommended. ALT 16 13 - 56 IU/L [facility] Comment: LABORATORIES Sulfasalazine and sulfapyridine have the potential to falsely depress Alanine Aminotransferase results. Baseline values before medication administration are recommended. Alkaline 56 50 - 136 mIU/ml [facility] Phosphatase LABORATORIES Total Bilirubin 0.80 0.20 - 1.00 mg/dl [facility] Blood Urea 7 7 - 18 mg/dl [facility] Nitrogen LABORATORIES Creatinine 0.67 0.51 - 0.95 mg/dl [facility] Comment: LABORATORIES N-Acetylcysteine (NAC) and Metamizole have the potential to falsely depress Creatinine results. Baseline values before medication adminstration are recommended. Patients undergoing treatment with phenindione will have falsely depressed results. Patients on phenindione therapy should be tested with an alternative CREA method. Toxic levels of acetaminophen may lead to falsely depressed results for patient samples. Glomerular >90.00 mL/min/1.73m2 [facility] Filtration Rate Comment: LABORATORIES GFR Reference Ranges: Normal Function or Mild Renal Disease,if clinically at risk: >or= 60 Moderately decreased: 30 - 59 Severely decreased: 15 - 29 Renal Failure: <15 Please note that the MDRD equation requires an additional adjustment for -Americans (multiply the GFR result by 1.210). Glomarular Filtration Rate (GFR) is estimated based on the MDRD equation, which assumes a steady state for creatinine (Yaneli Int Med 139/2 137-149, 2003), as recommended by the National Kidney Disease Education Program in conjunction with the National Institutes of Health and the National Kidney Foundation. The [place] method used in calculating this result is traceable to IDMS standards. Glucose 48 (LL) 70 - 110 mg/dl [facility] Comment: LABORATORIES Sulfasalazine has the potential to falsely depress Glucose results. Sulfapyridine has the potential to falsely elevate Glucose results. Baseline values before medication administration are recommended. Repeat and Verified Called To (First Last):OBEY VALENTINE Degree/Accreditation of Person Called:RN Location Called: [facility] Critical Tests and Results Called:GLU 48 Additional Tests that were Called: Read Back (Y/N):Y Date:03/23/2021 Time:2148 By:CARTER CORDOBA Calcium 8.2 (L) 8.5 - 10.1 mg/dl [facility] Total Protein 6.6 6.4 - 8.2 g/dl [facility] Albumin 3.0 (L) 3.4 - 5.0 g/dl [facility] Sodium 140 136 - 145 mEq/L [facility] Potassium 3.3 (L) 3.5 - 5.1 mEq/L [facility] Chloride 114.0 (H) 98.0 - 107.0 mEq/L [facility] Anion Gap 8.3 [facility] Carbon Dioxide 21.0 21.0 - 32.0 mMol/L [facility] Comment: LABORATORIES The above 16 analytes were performed by [facility] [address] [place], [place] [address] Specimen Serum or Plasma Performing Organization Address City/State/ZIP Code P jamel Number [facility] [address] [place] [address] CRISTIAN TOMAS MD * Magnesium (03/23/2021 8:42 PM EDT) [facility] Signature Magnesium 2.0 1.6 - 2.6 mg/dl [facility] Comment: LABORATORIES The above 1 analytes were performed by [facility] [address], ,[place] [address] Specimen Serum or Plasma Performing Organization Address City/State/ZIP Code P jamel Number [facility] [address] [place] [address] CRISTIAN TOMAS MD * CBC and differential (03/23/2021 8:42 PM EDT) WBC 6.19 4.80 - 10.00 [facility] x1000/ul LABORATORIES RBC 3.47 (L) 4.20 - 5.40 x1Mil/ul [facility] Hemoglobin 9.1 (L) 12.0 - 16.0 g/dl [facility] Hematocrit 29.8 (L) 37.0 - 47.0 % [facility] MCV 85.9 81.0 - 99.0 fL [facility] MCH 26.2 (L) 27.0 - 31.0 pg [facility] MCHC 30.5 (L) 32.2 - 37.0 g/dl [facility] RDW 16.8 (H) 11.5 - 14.5 % [facility] Platelet Count 228 130 - 400 x1000/ul [facility] MPV 11.4 9.4 - 12.4 fL [facility] Neutrophils 54.6 40.0 - 74.0 % [facility] Lymphocytes 34.7 19.0 - 48.0 % [facility] Monocytes 8.7 3.4 - 9.0 % [facility] Eosinophils 1.1 0.0 - 7.0 % [facility] Basophils 0.6 0.0 - 2.0 % [facility] Immature 0.3 0.0 - 0.5 % [facility] Granulocytes LABORATORIES Nucleated RBCs 0.00 0.00 - 0.20 % [facility] Abs. 3.37 1.92 - 8.31 x1000/ul [facility] Neutrophils LABORATORIES Abs. Lymphocyte 2.15 1.20 - 3.70 x1000/ul [facility] Abs. Monocytes 0.54 0.14 - 0.97 x1000/ul [facility] Abs. 0.07 0.00 - 0.76 x1000/ul [facility] Eosinophils LABORATORIES Abs. 0.04 0.00 - 0.22 x1000/ul [facility] Basophils LABORATORIES Abs. Immature 0.02 0.00 - 0.02 x1000/ul [facility] Gran. LABORATORIES Abs. Nucleated 0.00 0.00 - 0.02 x1000/ul [facility] RBCs Comment: LABORATORIES The above 24 analytes were performed by [facility] [address],[id number] [address] Specimen Whole Blood Performing Organization Address City/State/ZIP Code P jamel Number [facility] [address] [place] [address] CRISTIAN TOMAS MD documented in this encounter Visit Diagnoses Diagnosis Crohn's colitis (CMS/HCC) Regional enteritis of large intestine Intractable abdominal pain Crohn's disease (CMS/HCC) Regional enteritis of unspecified site Anxiety Anxiety state, unspecified documented in this encounter Administered Medications Action Date Dose Rate Site Medication Order MAR Action 03/27/2021 11:42 AM EDT 0.25 mg ARIPiprazole (ABILIFY) 1 mg/mL solution Given 0.25 mg 0.25 mg, oral, Daily, First dose on Wed03/23/21 at 1800 0.25 mg Given 03/26/2021 8:04 AM EDT 0.25 mg Given 03/25/2021 8:37 AM EDT 03/26/2021 1:42 AM EDT 125 mL/hr 125 mL/hr dextrose 5 % infusion New Bag 125 mL/hr, intravenous, at 125 mL/hr, Continuous, Starting on Wed03/23/21 at 2315 125 mL/hr 125 mL/hr New Bag 03/25/2021 2:52 PM EDT 125 mL/hr 125 mL/hr New Bag 03/25/2021 9:43 AM EDT 03/27/2021 11:42 AM EDT 1,200 mg gabapentin (NEURONTIN) 50 mg/mL solution Given 1,200 mg 1,200 mg, oral, 3 times daily, First dose on Wed03/23/21 at 2100 1,200 mg Given 03/26/2021 8:46 PM EDT 1,200 mg Given 03/26/2021 3:21 PM EDT hydrALAZINE (APRESOLINE) injection 10 m g 10 mg, intravenous, Every 4 hours PRN, Systolic BP above 160, Starting on Wed03/23/21 at 1958 03/27/2021 9:52 AM EDT 100 mL/hr lactated Ringer's infusion Continued 100 mL/hr, intravenous, at 100 mL/hr, from Pre Continuous, Starting on Wed03/27/21 at 0800 New Bag 03/27/2021 9:41 AM EDT 100 mL/hr 100 mL/hr New Bag 03/27/2021 8:15 AM EDT 03/27/2021 1:01 PM EDT 1 capsule lactobacillus rhamnosus (PROBIOTIC EXTRA Given STRENGTH) capsule 1 capsule 1 capsule, oral, Daily, First dose on Wed03/27/21 at 1245 03/27/2021 7:38 AM EDT 125 mcg levothyroxine (SYNTHROID) tablet 125 mcg Given 125 mcg, oral, Every morning before breakfast, First dose (after last reorder) on Wed03/24/21 at 0845 125 mcg Given 03/26/2021 8:04 AM EDT 125 mcg Given 03/25/2021 8:37 AM EDT 03/23/2021 9:00 PM EDT 5 mg melatonin tablet 5 mg Given 5 mg, oral, Nightly PRN, sleep, Startin g on Wed03/23/21 at 1746 03/27/2021 3:00 AM EDT 500 mg 100 mL/hr metroNIDAZOLE (FLAGYL) IV 500 mg New Bag 500 mg, intravenous, at 100 mL/hr, Administer over 60 Minutes, Every 8 hours, First dose on Wed03/23/21 at 1800, premix bag 500 mg 100 mL/hr New Bag 03/26/2021 6:00 PM EDT 500 mg 100 mL/hr New Bag 03/26/2021 11:15 AM EDT 03/26/2021 8:46 PM EDT 15 mg mirtazapine (REMERON) tablet 15 mg Given 15 mg, oral, Nightly, First dose on Wed03/23/21 at 2100 15 mg Given 03/25/2021 9:00 PM EDT 15 mg Given 03/24/2021 8:17 PM EDT 03/27/2021 1:01 PM EDT 2 mg morphine injection 2 mg Given 2 mg, intravenous, Every 4 hours PRN, severe pain, Starting on Wed03/25/21 at 1628 2 mg Given 03/27/2021 7:41 AM EDT 2 mg Given 03/27/2021 2:14 AM EDT 03/27/2021 11:44 AM EDT 1 tablet multivitamin (THERAGRAN) tablet 1 tablet Given 1 tablet, oral, Daily, First dose on Th u 03/27/21 at 1045 03/26/2021 7:54 AM EDT 4 mg ondansetron (ZOFRAN) injection 4 mg Given 4 mg, intravenous, Every 6 hours PRN, nausea, vomiting, Starting on 03/23/21 at 1744, 1st Line. Give IV if patient is unable to take orally. If inadequate response within 60 minutes, proceed to next-line agent or contact provider if no further options ordered. 4 mg Given 03/25/2021 2:30 PM EDT 4 mg Given 03/25/2021 2:24 AM EDT ondansetron (ZOFRAN-ODT) dispersible tablet 4 mg 4 mg, oral, Every 6 hours PRN, nausea, vomiting, Starting on 03/23/21 at 1744, 1st Line. If inadequate response within 60 minutes, proceed to next-line agent or contact provider if no further options ordered. Patient should allow tablet to dissolve on tongue. Do not remove from blister pack until just before administering. 03/27/2021 11:06 AM EDT 1 g sucralfate (CARAFATE) 100 mg/mL Given suspension 1 g 1 g, oral, 4 times daily, First dose on 03/23/21 at 1800 1 g Given 03/26/2021 8:46 PM EDT 1 g Given 03/26/2021 6:13 PM EDT 03/27/2021 11:06 AM EDT 150 mg venlafaxine XR (EFFEXOR-XR) 24 hr Given capsule 150 mg 150 mg, oral, Daily, First dose on 03/23/21 at 1800, Capsule may be swallowed whole, or may be opened and its contents sprinkled on applesauce if consumed immediately without chewing. D o not crush or chew. 150 mg Given 03/26/2021 9:00 AM EDT 150 mg Given 03/25/2021 8:37 AM EDT Action Date Dose Rate Site Medication Order MAR Action 03/26/2021 3:28 PM EDT 10 mg bisacodyL (DULCOLAX) EC tablet 10 mg Given 10 mg, oral, Once, On Wed03/26/21 at 1400, 1 dose, Take with 8 ounces of clear liquid. Do not crush, chew, or split. 03/26/2021 9:41 PM EDT 10 mg bisacodyL (DULCOLAX) EC tablet 10 mg Given 10 mg, oral, Once, On Wed03/26/21 at 1615, 1 dose, Take with 8 ounces of clear liquid. Do not crush, chew, or split. 03/26/2021 6:16 PM EDT 0.2 mg HYDROmorphone (DILAUDID) injection 0.2 Given mg 0.2 mg, intravenous, Every 10 min PRN, severe pain, Starting on Wed03/25/21 at 1126, 5 doses, Recovery (only) 0.2 mg Given 03/26/2021 7:54 AM EDT 03/25/2021 8:37 AM EDT 2 mg Left Upp er Arm (Back) morphine injection 2 mg Given 2 mg, subcutaneous, Every 6 hours PRN, severe pain, Starting on Wed03/23/21 at 1748 2 mg Right Upper Arm (Cal k) Given 03/24/2021 8:16 PM EDT 2 mg Left Upper Arm (Back ) Given 03/24/2021 11:08 AM EDT 03/26/2021 6:15 PM EDT 4 mg ondansetron (ZOFRAN) injection 4 mg Given 4 mg, intravenous, Every 15 min PRN, nausea, Starting on Wed03/25/21 at 1126 , 2 doses, Recovery (only) 03/27/2021 5:43 AM EDT 8 mg/hr 10 mL/hr pantoprazole (PROTONIX) 80 mg in sodium New Bag chloride 0.9% 100 mL (0.8 mg/mL) infusion 8 mg/hr (10 mL/hr), intravenous, at 10 mL/hr, Continuous, Starting on Wed03/25/21 at 1130, refrigerate until use 8 mg/hr 10 mL/hr New Bag 03/26/2021 12:42 AM EDT 8 mg/hr 10 mL/hr New Bag 03/25/2021 1:08 PM EDT 03/25/2021 11:56 AM EDT 80 mg 400 mL/hr pantoprazole (PROTONIX) 80 mg in sodium New Bag chloride 0.9% 100 mL IVPB 80 mg, intravenous, at 400 mL/hr, Administer over 15 Minutes, Once, On 03/25/21 at 1100, 1 dose, Mixed in Pharmacy. Refrigerate until use. 03/24/2021 8:53 AM EDT 40 mg pantoprazole (PROTONIX) injection 40 mg Given 40 mg, intravenous, Administer over 2 Minutes, Every 24 hours scheduled, Firs t dose on Wed03/23/21 at 1800 40 mg Given 03/23/2021 8:05 PM EDT 03/25/2021 8:38 AM EDT 40 mg pantoprazole (PROTONIX) injection 40 mg Given 40 mg, intravenous, Administer over 2 Minutes, Every 12 hours scheduled, Firs t dose (after last modification) on Wed03/24/21 at 2100 40 mg Given 03/24/2021 8:16 PM EDT 03/26/2021 3:28 PM EDT 238 g polyethylene glycol (GLYCOLAX) powder Given 238 g 238 g, oral, Once, On Wed03/26/21 at 1415, 1 dose, Add to 64 ounces of Gatorade (not red). Shake well. Drink 8 ounces every 10-15 minutes until 32 ounces is completed. She is to then finish the remaining 32 ounces starting at 0300 on 03-27-2021 and then be npo again. 03/25/2021 6:23 PM EDT 40 mEq potassium chloride (KLOR-CON) CR tablet Given 40 mEq 40 mEq, oral, Once, On Wed03/25/21 at 1745, 1 dose, Do not crush or chew. Do not crush or chew. 03/27/2021 2:14 AM EDT 5 mg prochlorperazine (COMPAZINE) injection 5 Given mg 5 mg, intravenous, Once as needed, nausea, Starting on Wed03/25/21 at 1126 , 1 dose, Recovery (only) documented in this encounter Active and Recently Administered Medications Times are shown in EDT. 03/26/2021 03/27/2021 Medication Order 03/25/2021 0804 (Given - Provider: Sharyn galvan RN) 0911 (MAR Hold - Provider: Automatic Tra nsfer Provider - Reason: Unreviewed Transfer Orders)1056 (MAR Unhold - Provider: Lore Ramsey RN)1142 (Given - Provider: Lore Ramsey, RN) ARIPiprazole (ABILIFY) 1 mg/mL solution 0837 (Given - 0.25 mg Provider: Ada 0.25 mg, oral, Daily, First dose on Wed HEENA Zelaya)09 19 (03/23/21 at 1800 Hold - Provider: Automatic Transfer Provider - Reason: Unreviewed Transfer Orders)1126 (OCT Unhold - Provider: HEENA Broderick) 1528 (Given - Provider: Sharyn galvan RN) bisacodyL (DULCOLAX) EC tablet 10 mg (COMPLETED) 10 mg, oral, Once, On Wed03/26/21 at 1400, 1 dose, Take with 8 ounces of clear liquid. Do not crush, chew, or split. 2140 (Given - Provider: Andrei Vera RN ) bisacodyL (DULCOLAX) EC tablet 10 mg (COMPLETED) 10 mg, oral, Once, On Wed03/26/21 at 1615, 1 dose, Take with 8 ounces of clear liquid. Do not crush, chew, or split. ferrous sulfate tablet 325 mg 325 mg, oral, Daily with breakfast, First dose on Wed03/28/21 at 0800 1045 (Given - Provider: Sharyn galvan RN)1521 (Given - Provider: Sharyn Moe, GELY)2046 (Given - Provider: Andrei Vera RN) 0911 (OCT Hold - Provider: Automatic Tra nsfer Provider - Reason: Unreviewed Transfer Orders)1056 (OCT Unhold - Provider: Lore Ramsey RN)1142 (Given - Provider: Lore Ramsey, RN)1600 (Due - Provider: Lore Ramsey, GELY) 2100 (Due - Provider: Lore Ramsey, RN) gabapentin (NEURONTIN) 50 mg/mL solution 0919 (OCT H old - 1,200 mg Provider: Automatic 1,200 mg, oral, 3 times daily, First Transfer Provid er - dose on Wed03/23/21 at 2100 Reason: Unreviewed Transfer Orders)1126 (OCT Unhold - Provider: HEENA Broderick)1157 (Given - Provider: Ada Zelaya, GN - Comment: Pt NPO for procedure)1704 (Given - Provider: HEENA Broderick - Comment: other pt care)2100 (Given - Provider: Andrei Vera RN) 1301 (Given - Provider: Lore carpio RN) lactobacillus rhamnosus (PROBIOTIC EXTR A STRENGTH) capsule 1 capsule 1 capsule, oral, Daily, First dose on Juanita 03/27/21 at 1245 0804 (Given - Provider: Sharyn galvan RN) 0738 (Given - Provider: Lore carpio RN)0911 (MAR Hold - Provider: Automatic Transfer Provider - Reason: Unreviewed Transfer Orders)1056 (OCT Unhold - Provider: Lore Ramsey RN) levothyroxine (SYNTHROID) tablet 125 mcg 0837 (Given - 125 mcg, oral, Every morning before Provider: Ada hurt, First dose (after last HEENA Zelaya)0919 (MA R reorder) on Wed03/24/21 at 0845 Hold - Provider: Automatic Transfer Provider - Reason: Unreviewed Transfer Orders)1126 (MAR Unhold - Provider: HEENA Broderick) 1045 (Not Given - Provider: Lore kidd RN - Reason: Medication not available)2100 (Due) methylcellulose (laxative) (CITRUCEL) tablet 1,000 mg 1,000 mg, oral, 2 times daily, First dose on Juanita 03/27/21 at 1045 0254 (New Bag - Provider: Andrei Vera RN)1115 (New Bag - Provider: Sharyn Moe RN - Comment: other pt care)1800 (New Bag - Provider: Sharyn Moe RN) 0300 (New Bag - Provider: Andrei Vera RN)0911 (MAR Hold - Provider: Automatic Transfer Provider - Reason: Unreviewed Transfer Orders)1000 (Dose Auto Held - Provider: Automatic Transfer Provider)1056 (MAR Unhold - Provider: Lore Ramsey RN)1800 (Due - Provider: Lore Ramsey RN) metroNIDAZOLE (FLAGYL) IV 500 mg 0224 (New Bag - 500 mg, intravenous, at 100 mL/hr, Provider: Elaina Administer over 60 Minutes, Every 8 GELY James)03 25 hours, First dose on 03/23/21 at (Stopped/Discont inue 1800, premix bag d - Provider: Elaina James, GELY)0919 (OCT Hold - Provider: Automatic Transfer Provider - Reason: Unreviewed Transfer Orders)1000 (Dose Auto Held - Provider: Automatic Transfer Provider)1126 (OCT Unhold - Provider: HEENA Broderick)1823 (New Bag - Provider: HEENA Broderick) 2046 (Given - Provider: Andrei Vera RN ) 0911 (OCT Hold - Provider: Automatic Tra nsfer Provider - Reason: Unreviewed Transfer Orders)1056 (OCT Unhold - Provider: Lore Ramsey, GELY)2100 (Due - Provider: Lore Ramsey RN) mirtazapine (REMERON) tablet 15 mg 0919 (OCT Hold - 15 mg, oral, Nightly, First dose on Sun Provider: Yesy lyons 03/23/21 at 2100 Transfer Provider - Reason: Unreviewed Transfer Orders)1126 (OCT Unhold - Provider: HEENA Broderick)2100 (Given - Provider: Andrei Vera RN) 1144 (Given - Provider: Lore carpio, GELY) multivitamin (THERAGRAN) tablet 1 table t 1 tablet, oral, Daily, First dose on 03/27/21 at 1045 pantoprazole (PROTONIX) 80 mg in sodium 1156 (New Ba g - chloride 0.9% 100 mL IVPB (COMPLETED) Provider: Donnie da 80 mg, intravenous, at 400 mL/hr, HEENA Zelaya) Administer over 15 Minutes, Once, On 03/25/21 at 1100, 1 dose, Mixed in Pharmacy. Refrigerate until use. pantoprazole (PROTONIX) EC tablet 40 mg 40 mg, oral, Every morning before breakfast, First dose on Wed03/28/21 at 0730, Do not crush, chew, or split. pantoprazole (PROTONIX) injection 40 mg 0838 (Given - (CANCELED) Provider: Ada 40 mg, intravenous, Administer over 2 HEENA Zelaya)0919 (OCT Minutes, Every 12 hours scheduled, First Hold - Prov ider: dose (after last modification) on Wed Automatic Bañuelos sfer 03/24/21 at 2100 Provider - Reason: Unreviewed Transfer Orders)1126 (OCT Unhold - Provider: Carson Cisse MD) 1528 (Given - Provider: Sharyn galvan RN - Comment: other pt care) polyethylene glycol (GLYCOLAX) powder 238 g (COMPLETED) 238 g, oral, Once, On Wed03/26/21 at 1415, 1 dose, Add to 64 ounces of Gatorade (not red). Shake well. Drink 8 ounces every 10-15 minutes until 32 ounces is completed. She is to then finish the remaining 32 ounces starting at 0300 on 03-27-2021 and then be npo again. potassium chloride (KLOR-CON) CR tablet 1823 (Given - 40 mEq (COMPLETED) Provider: Ada 40 mEq, oral, Once, On Wed03/25/21 at [facility]) 1745, 1 dose, Do not crush or chew. Do not crush or chew. 0804 (Given - Provider: Sharyn galvan RN)1126 (Given - Provider: Sharyn Moe RN)1813 (Given - Provider: Sharyn Moe, GELY)2046 (Given - Provider: Andrei Vera RN) 0800 (Not Given - Provider: Lore kidd RN - Reason: Patient not available)0911 (OCT Hold - Provider: Automatic Transfer Provider - Reason: Unreviewed Transfer Orders)1056 (MAR Unhold - Provider: Lore Rasmey RN) 1106 (Given - Provider: Lore Ramsey RN)1800 (Due - Provider: Lore Ramsey RN)2100 (Due - Provider: Lore Ramsey RN) sucralfate (CARAFATE) 100 mg/mL 0800 (Not Given - suspension 1 g Provider: Ada 1 g, oral, 4 times daily, First dose on - Reason: 03/23/21 at 1800 NPO)0919 (OCT Hold - Provider: Automatic Transfer Provider - Reason: Unreviewed Transfer Orders)1126 (OCT Unhold - Provider: HEENA Broderick)1158 (Given - Provider: HEENA Broderick)1704 (Given - Provider: HEENA Broderick)2100 (Given - Provider: Andrei Vera, GELY) 0900 (Given - Provider: Sharyn galvan, GELY) 0911 (OCT Hold - Provider: Automatic Tra nsfer Provider - Reason: Unreviewed Transfer Orders)1056 (OCT Unhold - Provider: Lore Ramsey, GELY)1106 (Given - Provider: Lore Ramsey, GELY) venlafaxine XR (EFFEXOR-XR) 24 hr 0837 (Given - capsule 150 mg Provider: Ada 150 mg, oral, Daily, First dose on Wed )091 9 (03/23/21 at 1800, Capsule may be Hold - Provider: swallowed whole, or may be opened and Automatic Bañuelos sfer its contents sprinkled on applesauce if Provider - R arturo: consumed immediately without chewing. Do Unreviewed Transfer not crush or chew. Orders)1126 (OCT Unhold - Provider: HEENA Broderick) 03/26/2021 03/27/2021 Medication Order 03/25/2021 0138 (Stopped/Discontinued - Provider: Ventura العلي, GELY)0142 (New Bag - Provider: Jj العلي, GELY) 0815 (Stopped/Discontinued - Provider: Dean Ramsey, GELY)0911 (OCT Hold - Provider: Automatic Transfer Provider - Reason: Unreviewed Transfer Orders)1056 (OCT Unhold - Provider: Lore Ramsey, GELY)1112 (Stopped/Discontinued - Provider: Lore Ramsey, GELY) dextrose 5 % infusion 0010 (New Bag - 125 mL/hr, intravenous, at 125 mL/hr, Provider: Vonnie Ventura, Starting on Wed03/23/21 at GELY James )0919 2315 (OCT Hold - Provider: Automatic Transfer Provider - Reason: Unreviewed Transfer Orders)0943 (New Bag - Provider: Kristina Zeng RN)1126 (OCT Unhold - Provider: HEENA Broderick)1452 (New Bag - Provider: HEENA Broderick) 0815 (New Bag - Provider: Lore yarbrough, GELY)0940 (Paused - Provider: Fish Jones MD - Comment: Switch to gravity)0941 (New Bag - Provider: Fish Jones MD)0952 (Continued from Pre - Provider: Kevin Cervantes MD) 1012 (Anesthesia Volume Adjustment - Provider: Fish Jones MD)1111 (Stopped/Discontinued - Provider: Lore Ramsey, GELY) lactated Ringer's infusion 100 mL/hr, intravenous, at 100 mL/hr, Continuous, Starting on Juanita 03/27/21 at 0800 0039 (Stopped/Discontinued - Provider: Ventura العلي, RN)0042 (New Bag - Provider: Jj العلي, GELY) 0543 (New Bag - Provider: Andrei Vera RN)0911 (OCT Hold - Provider: Automatic Transfer Provider - Reason: Unreviewed Transfer Orders)1056 (OCT Unhold - Provider: Lore Ramsey, GELY)1112 (Stopped/Discontinued - Provider: Lore Ramsey RN) pantoprazole (PROTONIX) 80 mg in sodium 1308 (New Ba g - chloride 0.9% 100 mL (0.8 mg/mL) Provider: Ada infusion (CANCELED) HEENA Zelaya) 8 mg/hr (10 mL/hr), intravenous, at 10 mL/hr, Continuous, Starting on e 03/25/21 at 1130, refrigerate until use 03/26/2021 03/27/2021 Medication Order 03/25/2021 0911 (OCT Hold - Provider: Automatic Tra nsfer Provider - Reason: Unreviewed Transfer Orders)1056 (OCT Unhold - Provider: Lore Ramsey RN) hydrALAZINE (APRESOLINE) injection 10 mg 0919 (OCT H old - 10 mg, intravenous, Every 4 hours PRN, Provider: Frantz omatic Systolic BP above 160, Starting on Sun Transfer Prov ider - 03/23/21 at 1958 Reason: Unreviewed Transfer Orders)1126 (OCT Unhold - Provider: HEENA Broderick) 0754 (Given - Provider: Sharyn galvan RN)1816 (Given - Provider: Sharyn Moe, GELY) HYDROmorphone (DILAUDID) injection 0.2 mg () 0.2 mg, intravenous, Every 10 min PRN, severe pain, Starting on Wed03/25/21 at 1126, 5 doses, Recovery (only) 0911 (OCT Hold - Provider: Automatic Tra nsfer Provider - Reason: Unreviewed Transfer Orders)1056 (OCT Unhold - Provider: Lore Ramsey, GELY) melatonin tablet 5 mg 0919 (OCT Hold - 5 mg, oral, Nightly PRN, sleep, Starting Provider: Nell goode on 03/23/21 at 1746 Transfer Provider - Reason: Unreviewed Transfer Orders)1126 (OCT Unhold - Provider: HEENA Broderick) morphine injection 2 mg (CANCELED) 0224 (Incomplete - 2 mg, subcutaneous, Every 6 hours PRN, Provider: Sierra cormier severe pain, Starting on 03/23/21 at [facility], N)0837 1748 (Given - Provider: HEENA Broderick)0919 (OCT Hold - Provider: Automatic Transfer Provider - Reason: Unreviewed Transfer Orders)1628 (OCT Unhold - Provider: Cari Monroy MD) 0431 (Given - Provider: Andrei Vera RN )1127 (Given - Provider: Sharyn Moe RN)1521 (Given - Provider: Sharyn Moe, GELY)2012 (Given - Provider: Andrei Vera RN) 0214 (Given - Provider: Andrei Vera RN )0741 (Given - Provider: Lore Ramsey, GELY)0911 (OCT Hold - Provider: Automatic Transfer Provider - Reason: Unreviewed Transfer Orders)1056 (OCT Unhold - Provider: Lore Ramsey, GELY) 1301 (Given - Provider: Lore Ramsey, GELY) morphine injection 2 mg 1700 (Given - 2 mg, intravenous, Every 4 hours PRN, Provider: Donnie pablo severe pain, Starting on Wed03/25/21 at Nathalie )21 00 1628 (Given - Provider: Andrei Vera RN) 0754 (Given - Provider: Sharyn galvan RN) 0911 (OCT Hold - Provider: Automatic Tra nsfer Provider - Reason: Unreviewed Transfer Orders)1056 (OCT Unhold - Provider: Lore Ramsey, GELY) ondansetron (ZOFRAN) injection 4 0224 (Given - mg(Linked Group 1) Provider: Elaina 4 mg, intravenous, Every 6 hours PRN, GELY James) 0919 nausea, vomiting, Starting on Sun (MAR Hold - 03/23/21 at 1744, 1st Line. Give IV if Provider: Auto matic patient is unable to take orally. If Transfer Provid er - inadequate response within 60 minutes, Reason: Unrev iewed proceed to next-line agent or contact Transfer Order s)1126 provider if no further options ordered. (MAR Unhold - Provider: HEENA Broderick)1430 (Given - Provider: HEENA Broderick) 1815 (Given - Provider: Sharyn galvan, RN) ondansetron (ZOFRAN) injection 4 mg (CANCELED) 4 mg, intravenous, Every 15 min PRN, nausea, Starting on Wed03/25/21 at 1126 , 2 doses, Recovery (only) 0754 (See Alternative - Provider: Ami Moe, RN) 0911 (MAR Hold - Provider: Automatic Tra nsfer Provider - Reason: Unreviewed Transfer Orders)1056 (MAR Unhold - Provider: Lore Ramsey RN) ondansetron (ZOFRAN-ODT) dispersible 0224 (See tablet 4 mg(Linked Group 1) Alternative - 4 mg, oral, Every 6 hours PRN, nausea, Provider: Sierra cormier vomiting, Starting on 03/23/21 at GELY James)0 919 1744, 1st Line. If inadequate response (MAR Hold - within 60 minutes, proceed to next-line Provider: Yesy lyons agent or contact provider if no further Transfer Pro vider - options ordered. Patient should allow Reason: Unrev iewed tablet to dissolve on tongue. Do not Transfer Orders )1126 remove from blister pack until just (MAR Unhold - before administering. Provider: HEENA Broderick)1430 (See Alternative - Provider: HEENA Broderick) ondansetron (ZOFRAN-ODT) dispersible tablet 4 mg 4 mg, oral, Every 8 hours PRN, nausea, vomiting, Starting on Juanita 03/27/21 at 1031 0214 (Given - Provider: Andrei Vera, GELY ) prochlorperazine (COMPAZINE) injection 5 mg (COMPLETED) 5 mg, intravenous, Once as needed, nausea, Starting on 8/17/21 at 1126 , 1 dose, Recovery (only) Order Group 1: ondansetron (ZOFRAN-ODT) dispersible ta blet 4 mgJump to med 4 mg, oral, Every 6 hours PRN, nausea, vomiting, Starting on 03/23/21 at 1744
1st Line. If inadequate response within 60 minutes, proceed to next-line agent or contact provider if no further options ordered. Patient should a llow tablet to dissolve on tongue. Do not remove from blister pack until just before administering.<b r> Or ondansetron (ZOFRAN) injection 4 mgJump to med 4 mg, intravenous, Every 6 hours PRN, n ausea, vomiting, Starting on 03/23/21 at 1744
1st Line. Give IV if patient is unable to take or ally. If inadequate response within 60 minutes, proceed to next-line agent or contact provider if no further options ordered.
documented in this encounter Additional Health Concerns Last Indicated Resolved Time Infection Onset Date 03/25/2021 03/26/2021 12:58 PM EDT C. difficile 03/25/2021 documented as of this encounter Insurance Type Payer Benefit Subscriber ID Effective Phone Address Plan / Dates Group Medicare MEDICARE MEDICARE [id number] 2012-P PART A & B resent MEDICAID [place] MED[place] [id number] 2021-P [phone] resent documented as of this encounter Advance Directives Date Inactivated Comments Code Status Date Activated Please verify with patient Full Code 03/23/2021 5:48 PM
--- OUTSIDE RECORDS SUMMARY | 2021-05-25 21:54 | CCD ---
Author Author [facility] Organization [facility] Address Unknown Phone Unavailable Care Team Providers Care Office Mover Name Role Phone Abida Gomez Unavailable PROBLEMS Type Condition ICD9-CM Code VQV20-WR Code Onset Dates Condition S tatus W/U Status Risk SNOMED Code Notes Problem Hypothyroidism, unspecified type E03.9 Active conf irmed 87661139 Problem Migraine without status migr ainosus, not intractable, unspecified migraine type G43.909 Active confirmed 30058085 Problem Bipolar 1 disorder F31.9 Active confirmed 3 99120587 Problem Bleeding ulcer K27.4 Active confirmed 45408 000 Problem Crohn's disease with complic ation, unspecified gastrointestinal tract location K50.919 Active confirmed 66936287 Problem 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 Active confirmed 697248325 Problem History of gastrointestinal ulcer Z87.19 Active confirmed 844117291 Problem Cocaine abuse in remission F14.11 Active confirmed 933738546 Problem History of ulcer disease Z87.898 Active confirmed 861004810 Problem Normocytic hypochromic anemia D50.9 Active confirm ed 82581724 Problem Attention deficit hyperactivity disorder (ADHD), unspecified ADHD type F90.9 Active confirmed 566116763 Problem Schizoaffective disorder, unspecified type F25.9 Active confirmed 98356967 RULE OUT Problem Gastroesophageal reflux disease without esophagitis K21.9 Active confirmed 288920490 Problem Insomnia, unspecified type G47.00 Active confirmed 381088088 Problem Post-traumatic stress disorder, unspecified F43.10 Active confirmed 23589503 Problem BOOKER (generalized anxiety disorder) F41.1 Activ e confirmed 95576062 Problem Anxiety F41.9 Active confirmed 39489005 Problem Depression, unspecified depression type F32.9 Active confirmed 21147395 Problem Tobacco dependence F17.200 Active confirmed 94352882 Problem Other chronic pain G89.29 Active confirmed 8 6933761 Problem Hypoglycemia E16.2 Active confirmed 7954183 03 ALLERGIES Allergen (clinical drug ingredient) Drug/Non Drug Allergy do cumented on EMR Reaction Allergy Type Onset Date Status NSAIDS Unknown Non Drug Allergy Active amitriptyline Amitriptyline HCl([facility] Code:[address]-47) Unknown Dr mary Allergy Active rizatriptan Maxalt([facility] Code:[address]-96) anaphylaxis Drug Allergy Active Bees Anaphylaxis-Bakers Yeast Non Drug Allergy Active ENCOUNTERS from 1982 to 2021-03-28 Encounter Location [place] [address] Mar, Abida Jason IMMUNIZATIONS No Information SOCIAL [...] to dissolve Sublingual Once a day Active [place] Carbonate 300 MG 1 capsule Orally Twice a day for 30 day (s) Feb, Not-Taking Multivitamin Adult - 1 tablet Orally Once a day for 30 day(s) Active PROCEDURES No Information RESULTS No Results REASON FOR VISIT labs MEDICAL (GENERAL) HISTORY Type Description Date Medical History Obesity s/p gastric bypass Medical History Anxiety/Depression/PTSD Medical History Bipolar/ADHD Medical History Stomach ulcers Medical History ovarian cyst left side Medical History Crohn's Medical History Kaitlyn's Medical History [place] Medical History hysterectomy Medical History iron deficient Medical History Kaitlyn's disease Medical History Allergy to bee sting Surgical History L2-S1 spinal fusion-[place] 2009 Surgical History x 2 Surgical History gastric bypass 2011 Surgical History peptic ulcer perforation repair- Dr. Sinha 06/2016 Surgical History EGD 02/2017 Surgical History Gastric bypass revision/ulcer repair-Dr. Sullivan 03/14/2017 Surgical History Hysterectomy 2007 Surgical History colonoscopy-[facility] Surgical History EGD-[facility] 09/2018 Surgical History EGD-[facility] 01/2019 Surgical History EGD and C-scope 2019 Hospitalization History surgical purposes Hospitalization History upper GI bleed/severe stomach pain Hospitalization History upper GI bleed 02/2017 Hospitalization History upper gi bleed 11/2017 Hospitalization History abdominal pain x 8 days-[facility] 10/2018 Goals Section No Information Health Concerns No Information MEDICAL EQUIPMENT No Information MENTAL STATUS No Information FUNCTIONAL STATUS No Information ASSESSMENTS No Information PLAN OF TREATMENT Medication Medication Name Sig Start Date Stop Date Rexulti 1 MG 1 tablet Orally Once a day for 30 day(s) Mar, Next Appt Details Provider Name:Anna Marie Silverman, 2021-04-09 1 0:00:00 AM, [address] [place], [address], Provider Name:Abida Gomez, 1 11:00:00 AM, [address] [place], [address], Provider Name:Ragini Watts, 2021-04-22 03:00:00 PM, [address] [place], [address], Insurance Providers Payer Name Payer Address Payer Phone Insured Name Patient Relati onship to Insured Coverage Start Date Coverage End Date [employer] - [place]ICARE [place] [address] [facility] [id number] Ada Ayoub [facility] MEDICA[facility] [address] [facility] [address] Ada Ayoub [facility] - [employer] [address] [facility] Ada Ayoub
--- OUTSIDE RECORDS SUMMARY | 2021-05-25 21:54 | CCD ---
Author Author [facility] Organization [facility] Address Unknown Phone Unavailable Care Team Providers Care Gang Boss Name Role Phone Abida Gomez Unavailable PROBLEMS Type Condition ICD9-CM Code CXX27-PL Code Onset Dates Condition S tatus W/U Status Risk SNOMED Code Notes Problem Hypothyroidism, unspecified type E03.9 Active conf irmed 98632103 Problem Migraine without status migr ainosus, not intractable, unspecified migraine type G43.909 Active confirmed 92139923 Problem Bipolar 1 disorder F31.9 Active confirmed 3 22798368 Problem Bleeding ulcer K27.4 Active confirmed 80307 000 Problem Crohn's disease with complic ation, unspecified gastrointestinal tract location K50.919 Active confirmed 87179409 Problem 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 Active confirmed 512282409 Problem History of gastrointestinal ulcer Z87.19 Active confirmed 064873836 Problem Cocaine abuse in remission F14.11 Active confirmed 217013527 Problem History of ulcer disease Z87.898 Active confirmed 744337853 Problem Normocytic hypochromic anemia D50.9 Active confirm ed 79745418 Problem Attention deficit hyperactivity disorder (ADHD), unspecified ADHD type F90.9 Active confirmed 471565512 Problem Schizoaffective disorder, unspecified type F25.9 Active confirmed 95736708 RULE OUT Problem Gastroesophageal reflux disease without esophagitis K21.9 Active confirmed 874512066 Problem Insomnia, unspecified type G47.00 Active confirmed 176660042 Problem Post-traumatic stress disorder, unspecified F43.10 Active confirmed 04014640 Problem BOOKER (generalized anxiety disorder) F41.1 Activ e confirmed 04979038 Problem Anxiety F41.9 Active confirmed 67263233 Problem Depression, unspecified depression type F32.9 Active confirmed 43914214 Problem Tobacco dependence F17.200 Active confirmed 06699677 Problem Other chronic pain G89.29 Active confirmed 8 8954128 Problem Hypoglycemia E16.2 Active confirmed 1592497 03 ALLERGIES Allergen (clinical drug ingredient) Drug/Non Drug Allergy do cumented on EMR Reaction Allergy Type Onset Date Status NSAIDS Unknown Non Drug Allergy Active rizatriptan Maxalt([facility] Code:[address]-99) anaphylaxis Drug Allergy Active Bees Anaphylaxis-Bakers Yeast Non Drug Allergy Active amitriptyline Amitriptyline HCl([facility] Code:[address]-58) Unknown Dr hernandez Allergy Active ENCOUNTERS from 1982 to 2021-05-16 Encounter Location [place] [address] May, Abida Jason IMMUNIZATIONS No Information SOCIAL HISTORY [...] Notes Start Da te End Date Status Carafate 1 GM 1 tablet on an empty stomach Orally four times a day as needed for 30 days Active SEROquel 25 MG 1 tablet Orally twice daily as needed for 60 days Not-Taking Venlafaxine HCl ER 150 MG 1 capsule with food Orally Once a day for 30 day(s) Not-Taking EpiPen 2-Sav 0.3 MG/0.3ML as directed Injection once for 2 days prn Jan, Active Zantac 150 MG 1 tablet at bedtime Orally Once a day for 30 day (s) Nov, Unknown Doxepin HCl 25 MG 1 capsule at bedtime Orally qhs Jul, Not-Taking ONE TOUCH TEST STRIPS as directed; E11.9 QD AND PRN for 90 days Active [place] Carbonate 300 MG 1 capsule Orally Twice a day for 30 day(s) Stopped this Feb, Not-Taking Rexulti 2 MG 1 tablet Orally Once a day for 30 days Mar Active HYDROcodone-Acetaminophen 7.5-325 MG/15ML 5 ml as needed Orally fatimah ry 6 hrs Active Levothyroxine Sodium 50 MCG 1 tablet in the morning on an empty stomach Orally Once a day for 30 day(s) Jan, Active Prazosin HCl 1 MG 1 capsule at bedtime Orally Once a day for 30 day(s) Feb, Active Zofran 4 MG 1 tablet Orally Once a day for 30 day(s) prn Active Hair Skin & Nails Gummies 1250-7.5-7.5 MCG-MG-UNT as directed Orally Unknown Multivitamin Adult - 1 tablet Orally Once a day for 30 day(s) Active Biotin 10 MG 1 tablet Orally Once a day for 30 day(s) Unknown One Touch Delica Lancets as directed; E11.9 QD and prn for 90 days Active Mirtazapine 15 MG 1 tablet at bedtime Orally Once a day for 30 day(s) Active One touch Ultra mini meter as dir; E11.9 up to 2x per day as needed for low blood sugar symptoms for 30 days Active Remeron 15 MG TAKE ONE TABLET BY MOUTH FATIMAH RY EVENING orally once a day for 30 days Not-Taking miSOPROStol 200 MCG 1 tablet with meals and at b edtime Orally Four times a day for 30 day(s) Active tiZANidine HCl 4 MG 1 tablet as needed Orally Three times a day Active Pantoprazole Sodium 40 MG 1 tablet Orally Twice a day for 30 day (s) Nov, Active PROCEDURES No Information RESULTS No Results REASON FOR VISIT cancelling appt MEDICAL (GENERAL) HISTORY Type Description Date Medical History Obesity s/p gastric bypass Medical History Anxiety/Depression/PTSD Medical History Bipolar/ADHD Medical History Stomach ulcers Medical History ovarian cyst left side Medical History Crohn's Medical History Kaitlyn's Medical History [place] Medical History hysterectomy Medical History iron deficient Medical History Kaitlyn's disease Medical History Allergy to bee sting Surgical History L2-S1 spinal fusion-[place] 2009 Surgical History x 2 Surgical History gastric bypass 2011 Surgical History peptic ulcer perforation repair- Dr. Sinha 06/2016 Surgical History EGD 02/2017 Surgical History Gastric bypass revision/ulcer repair-Dr. Sullivan 03/14/2017 Surgical History Hysterectomy 2007 Surgical History colonoscopy-[facility] Surgical History EGD-[facility] 09/2018 Surgical History EGD-[facility] 01/2019 Surgical History EGD and C-scope 2019 Hospitalization History surgical purposes Hospitalization History upper GI bleed/severe stomach pain Hospitalization History upper GI bleed 02/2017 Hospitalization History upper gi bleed 11/2017 Hospitalization History abdominal [facility] x [facility] [place] 10/2018 Hospitalization History Upper GI bleed MV ([facility]) 04/28 21 Goals Section No Information Health Concerns No Information MEDICAL EQUIPMENT No Information MENTAL STATUS No Information FUNCTIONAL STATUS No Information ASSESSMENTS No Information PLAN OF TREATMENT Medication Medication Name Sig Start Date Stop Date Rexulti 2 MG 1 tablet Orally Once a day for 30 days Mar, 2 021 Next Appt Details Provider Name:Ragini Watts, 2021-05-20 01:00:00 PM, [address] [place] [address], [phone], Provider Name:Anna Marie Silverman 2021-05-21 1 0:00:00 AM, [address] [place] [address], [phone], Provider Name:Anna Marie Silveramn 2021-06-02 0 2:00:00 PM, [address] [place] [address], [phone], Insurance Providers Payer Name Payer Address Payer Phone Insured Name Patient Relati onship to Insured Coverage Start Date Coverage End Date [employer] - [place]ICARE [place] [address] [facility] [address] [phone] Ada Ayoub [facility] - MEDICAID ANCILLARY [facility] [address] [facility] [phone] Ada Ayoub [employer] - [employer] [address] [facility] [address] Ada Ayoub
--- OUTSIDE RECORDS SUMMARY | 2021-05-25 21:54 | CCD ---
Author Author [facility] Organization [facility] Address Unknown Phone Unavailable Care Team Providers Care Television Anchor Name Role Phone Abida Gomez Unavailable PROBLEMS Type Condition ICD9-CM Code IAR88-PW Code Onset Dates Condition S tatus W/U Status Risk SNOMED Code Notes Problem Hypothyroidism, unspecified type E03.9 Active conf irmed 54530570 Problem Migraine without status migr ainosus, not intractable, unspecified migraine type G43.909 Active confirmed 99757408 Problem Bipolar 1 disorder F31.9 Active confirmed 3 51890119 Problem Bleeding ulcer K27.4 Active confirmed 79019 000 Problem Crohn's disease with complic ation, unspecified gastrointestinal tract location K50.919 Active confirmed 25948558 Problem 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 Active confirmed 947133235 Problem History of gastrointestinal ulcer Z87.19 Active confirmed 851991939 Problem Cocaine abuse in remission F14.11 Active confirmed 198400515 Problem History of ulcer disease Z87.898 Active confirmed 735018321 Problem Normocytic hypochromic anemia D50.9 Active confirm ed 93581506 Problem Attention deficit hyperactivity disorder (ADHD), unspecified ADHD type F90.9 Active confirmed 380917230 Problem Schizoaffective disorder, unspecified type F25.9 Active confirmed 95985937 RULE OUT Problem Gastroesophageal reflux disease without esophagitis K21.9 Active confirmed 154377978 Problem Insomnia, unspecified type G47.00 Active confirmed 405620500 Problem Post-traumatic stress disorder, unspecified F43.10 Active confirmed 57062433 Problem BOOKER (generalized anxiety disorder) F41.1 Activ e confirmed 82238568 Problem Anxiety F41.9 Active confirmed 49541817 Problem Depression, unspecified depression type F32.9 Active confirmed 01757497 Problem Tobacco dependence F17.200 Active confirmed 09098716 Problem Other chronic pain G89.29 Active confirmed 8 7953496 Problem Hypoglycemia E16.2 Active confirmed 1850735 03 ALLERGIES Allergen (clinical drug ingredient) Drug/Non Drug Allergy do cumented on EMR Reaction Allergy Type Onset Date Status NSAIDS Unknown Non Drug Allergy Active amitriptyline Amitriptyline HCl([facility] Code:[address]-36) Unknown Dr mary Allergy Active rizatriptan Maxalt([facility] Code:[address]-26) anaphylaxis Drug Allergy Active Bees Anaphylaxis-Bakers Yeast Non Drug Allergy Active ENCOUNTERS from 1982 to 2021-03-19 Encounter Location Date Provider Diagnosis [address] [address] Mar, Abida Gomez Hypothyroidism, unspecified type E03.9 ; Iron deficiency E61.1 ; Diarrhea, unspecified type R19.7 ; Status post gastric bypass for obesity Z98.84 ; Vomiting, intractability of vomiting not specified, pr esence of nausea not specified, unspecified vomiting type R11.10 ; Raspy voice R49.0 ; Chest pain, unspecified type R07.9 ; Hypoglycemia E16.2 ; Other chronic pain G89.29 ; Low back pain M54.5 ; Tobacco abuse Z72.0 ; Tobacco abuse counseling Z71.6 ; Tobacco dependence F17.200 ; Epigastric hernia K43.9 ; Crohn's disease with complication, unspecified gastrointestinal tract location K50.919 and History of ulcer disease Z87.898 IMMUNIZATIONS No Information SOCIAL HISTORY Tobacco Use: [...] REASON FOR REFERRAL No Information VITAL SIGNS Height 68 in Mar, Weight 179.6 lbs Mar, BMI 27.31 kg/m2 Mar, Temperature 98.8 degrees Fahrenheit Mar, Heart Rate 86 /min Mar, Respiratory Rate 18 /min Mar, Oximetry 100 % Mar, Blood pressure systolic 118 mmHg Mar, Blood pressure diastolic 82 mmHg Mar, MEDICATIONS Medication SIG (Take, Route, Frequency, Duration) [...] to dissolve Sublingual Once a day Active [place] Carbonate 300 MG 1 capsule Orally Twice a day for 30 day (s) Feb, Not-Taking Multivitamin Adult - 1 tablet Orally Once a day for 30 day(s) Active PROCEDURES from 1982 to 2021-03-19 Procedure Date Ordered Result Body Site EKG 2021-03-10 N/A RESULTS Component Value Reference Range CKMB Reviewed date:03/12/2021 07:49:19 Interpretation: Performing Lab: CKMB 1.3 0.0-3.6 TSH Reviewed date:03/12/2021 14:35:01 Interpretation: Performing Lab: TSH 27.184 0.360-3.740 FREE T4 Reviewed date:03/12/2021 14:35:16 Interpretation: Performing Lab: FREE T4 0.4 0.76-1.46 CHEST 2 VIEWS Reviewed date:03/12/2021 07:48:29 Interpretation: Performing Lab: CBC W/DIFF Reviewed date:03/17/2021 12:46:49 Interpretation: Performing Lab: WHITE BLOOD COUNT 6.9 4.0-10.0 RED BLOOD COUNT 4.05 4.00-5.50 HEMOGLOBIN 10.4 12.0-16.0 HEMATOCRIT 33.2 36.0-48.8 MEAN CELL VOLUME 82.0 80-96 MEAN CORPUSCULAR HEMOGLOBIN 25.7 27.0-31.0 MEAN CORPUSCULAR HGB CONC 31.3 32.0-36.0 RED CELL DISTRIBUTION WIDTH 16.2 10.0-14.5 PLATELET COUNT 360 172-450 MEAN PLATELET VOLUME 10.3 9.0-13.0 GRAN % 55.3 50-80.0 LYMPH % 34.2 25.0-50.0 MONO % 7.6 2.0-10.0 EOS % 2.2 0-5.0 BASO % 0.6 0.0-2.0 GRAN # 3.8 2.0-8.00 LYMPH # 2.4 1.0-5.0 MONO # 0.5 0.10-1.20 EOS # 0.2 0.0-0.5 BASO # 0.0 0.0-0.2 IRON PROFILE Reviewed date:03/17/2021 12:46:18 Interpretation: Performing Lab: IRON 38 50-170 TIBC 429 250-450 % SATURATION 9 20-50 FERRITIN Reviewed date:03/17/2021 12:45:46 Interpretation: Performing Lab: FERRITIN 7 8-252 REASON FOR VISIT Follow Up MEDICAL (GENERAL) HISTORY Type Description Date Medical History Obesity s/p gastric bypass Medical History Anxiety/Depression/PTSD Medical History Bipolar/ADHD Medical History Stomach ulcers Medical History ovarian cyst left side Medical History Crohn's Medical History Kaitlyn's Medical History Parano[place] Medical History hysterectomy Medical History iron deficient Medical History Kaitlyn's disease Medical History Allergy to bee sting Surgical History L2-S1 spinal fusion-[place] 2009 Surgical History x 2 Surgical History gastric bypass 2010 Surgical History peptic ulcer perforation repair- Dr. Sinha 06/2016 Surgical History EGD 02/2017 Surgical History Gastric bypass revision/ulcer repair-Dr. Sullivan 03/14/2017 Surgical History Hysterectomy 2006 Surgical History colonoscopy-[facility] Surgical History EGD-[facility] 09/2018 Surgical History EGD-[facility] 01/2019 Surgical History EGD and C-scope 2019 Hospitalization History surgical purposes Hospitalization History upper GI bleed/severe stomach pain Hospitalization History upper GI bleed 02/2017 Hospitalization History upper gi bleed 11/2017 Hospitalization History abdominal pain x 8 days-[facility] 10/2018 Goals Section No Information Health Concerns No Information MEDICAL EQUIPMENT No Information MENTAL STATUS No Information FUNCTIONAL STATUS No Information ASSESSMENTS Encounter Date Diagnosis Assessment Notes Treatment Notes Treatm ent Clinical Notes Mar, Hypothyroidism, unspecified type (ICD-10 - E03.9 ) Labs ordered, will call with the results once it is available. Continue to take medication as prescribed. Will continue to monitor. Mar, Iron deficiency (ICD-10 - E61.1) Pt most recent labs showed low iron levels. Repeat labs ordered, will call with the results once it is available. Encouraged pt to eat foods high in iron such as green leafy vegetables, and lean red meat. Encouraged pt to start on iron supplements. Will continue to monitor. Mar, Diarrhea, unspecified type (ICD-10 - R19.7) Pt with history of black stools and bloody vomiting. Pt states that she has a stomach ulcer and believes that is the cause of her bleeding. Discussed completing labs and imaging. Pt was agreeable. Discussed the importance of being seen by GI for endoscopy and colonoscopy given her past medical history of Choron's disease and gastric ulcer. Pt was given phone number of GI provider. Discussed having the pt follow up with gastric surgeon for a revision on her gastric bypass. Pt was agreeable. Referral placed. Reviewed when to be seen in the ER. Will continue to monitor. Mar, Status post gastric bypass for obesity (ICD-10 - Z98.84) As above Mar, Vomiting, intractability of vomiting not specified, presence of nausea not specified, unspecified vomiting type (ICD-10 - R11.10) As above Mar, Raspy voice (ICD-10 - R49.0) Discussed referral to ENT with pt and pt was agreeable. Pt with smoking history and continues to smoke 6 cigarettes a day. She states that she is continuing to decrease smoking use. Referral placed. Encouraged pt to decrease smoking use. Will continue to monitor. Mar, Chest pain, unspecified type (ICD-10 - R07.9) Pt with chronic chest pain that comes and goes over the last few months. She admits pain radiating in her ribs under her heart and left arm pain. EKG showed normal sinus rhythm, no ST elevations. Pending final read by cardiology. Pt with history of drug use and states she was told in [place] that she used to have tachycardia. Pt states that in [place] she was advised to see cardiology due to history of chest pain and high heart rate. She is interested in referral. Referral placed. Discussed completing blood work and chest xray today and pt was agreeable. Reviewed when to be seen in the ER. Will continue to monitor. Mar, Hypoglycemia (ICD-10 - E16.2) Pt was prediabetic before gastric bypass. She has been having low blood sugars since surgery. Encouraged pt to always carry snacks with her. Encouraged pt to eat a meal after eating a snack to keep her blood sugars elevated. Encouraged her to continue to monitor blood sugars. Will continue to monitor. Mar, Other chronic pain (ICD-10 - G89.29) Pt with chronic low back pain and had surgery in the past. She had an MRI done over a year ago that showed problems with her spine. Pt requesting referral to pain management. Referral placed. Will continue to monitor. Mar, Low back pain (ICD-10 - M54.5) As above Mar, Tobacco abuse (ICD-10 - Z72.0) The patient is a smoker, smokes 6 cigarettes per day. Discussed the risks and dangers of smoking. Strongly encouraged patient to quit smoking. Discussed various cessation options including nicotine patches, Chantix, and Zyban. Continue with AA meetings. Pt declines wanting any medication to help quit smoking at this time. Mar, Tobacco abuse counseling (ICD-10 - Z71.6) Spent approx 3 minutes discussing smoking cessation with patient. Praised patient for cutting back on smoking. Discussed methods for replacing habit including activities to keep mouth/brain/hand occupied like drawing, sucking on sugar free hard candies, exercise. Reviewed smoking cessation methods including gum, lozenges, nasal spray, oral medications. Patient does not want any medications at this time. Encouraged continued weaning down of cigarettes per day. Reviewed importance of smoking cessation for prevention of further lung degradation and improvement of chronic symptoms. Mar, Tobacco dependence (ICD-10 - F17.200) As above Mar, Epigastric hernia (ICD-10 - K43.9) Pt with non strangulated epigastric hernia on exam. Continue with GI referral. Will continue to monitor. Mar, Crohn's disease with complic ation, unspecified gastrointestinal tract location (ICD-10 - K50.919) As above Mar, History of ulcer disease (ICD-10 - Z87.898) As above Mar, Other All questions and concerns addressed, patient understanding and agreeable to plan. Patient encouraged to follow up at the clinic for any additional or new questions or concerns. Alona Lu, scribing the following service on behalf of KALEB Ferrell on 03/10/2021. Time spent includes face to face time wi th patient and review of any pertinent laboratory results and diagnostic imaging. Time spent: Greater than 30 minutes PLAN OF TREATMENT Medication Medication Name Sig Start Date Stop Date Rexulti 1 MG 1 tablet Orally Once a day for 30 day(s) Mar, Treatment Notes Assessment Notes Clinical Notes Epigastric hernia Pt with non strangulated epi gastric hernia on exam. Continue with GI referral. Will continue to monitor. Hypothyroidism, unspecified type Labs ordered, will ca ll with the results once it is available. Continue to take medication as prescribed. Will continue to monitor. Tobacco dependence As above Iron deficiency Pt most recent labs showed l ow iron levels. Repeat labs ordered, will call with the results once it is available. Encouraged pt to eat foods high in iron such as green leafy vegetables, and lean red meat. Encouraged pt to start on iron supplements. Will continue to monitor. History of ulcer disease As above Diarrhea, unspecified type Pt with history of black st ools and bloody vomiting. Pt states that she has a stomach ulcer and believes that is the cause of her bleeding. Discussed completing labs and imaging. Pt was agreeable. Discussed the importance of being seen by GI for endoscopy and colonoscopy given her past medical history of Choron's disease and gastric ulcer. Pt was given phone number of GI provider. Discussed having the pt follow up with gastric surgeon for a revision on her gastric bypass. Pt was agreeable. Referral placed. Reviewed when to be seen in the ER. Will continue to monitor. Crohn's disease with complication, unspecified gastroi ntestinal tract location As above Status post gastric bypass for obesity As above Vomiting, intractability of vomiting not specified, presence of nausea not specified, unspecified vomiting type As above Raspy voice Discussed referral to ENT [facility] pt and pt was agreeable. Pt with smoking history and continues to smoke 6 cigarettes a day. She states that she is continuing to decrease smoking use. Referral placed. Encouraged pt to decrease smoking use. Will continue to monitor. Chest pain, unspecified type Pt with chronic chest alice n that comes and goes over the last few months. She admits pain radiating in her ribs under her heart and left arm pain. EKG showed normal sinus rhythm, no ST elevations. Pending final read by cardiology. Pt with history of drug use and states she was told in [place] that she used to have tachycardia. Pt states that in [place] she was advised to see cardiology due to history of chest pain and high heart rate. She is interested in referral. Referral placed. Discussed completing blood work and chest xray today and pt was agreeable. Reviewed when to be seen in the ER. Will continue to monitor. Tobacco abuse counseling Spent approx 3 minutes discu ssing smoking cessation with patient. Praised patient for cutting back on smoking. Discussed methods for replacing habit including activities to keep mouth/brain/hand occupied like drawing, sucking on sugar free hard candies, exercise. Reviewed smoking cessation methods including gum, lozenges, nasal spray, oral medications. Patient does not want any medications at this time. Encouraged continued weaning down of cigarettes per day. Reviewed importance of smoking cessation for prevention of further lung degradation and improvement of chronic symptoms. Tobacco abuse The patient is a smoker, smo kes 6 cigarettes per day. Discussed the risks and dangers of smoking. Strongly encouraged patient to quit smoking. Discussed various cessation options including nicotine patches, Chantix, and Zyban. Continue with AA meetings. Pt declines wanting any medication to help quit smoking at this time. Hypoglycemia Pt was prediabetic before ga stric bypass. She has been having low blood sugars since surgery. Encouraged pt to always carry snacks with her. Encouraged pt to eat a meal after eating a snack to keep her blood sugars elevated. Encouraged her to continue to monitor blood sugars. Will continue to monitor. Other chronic pain Pt with chronic low back alice n and had surgery in the past. She had an MRI done over a year ago that showed problems with her spine. Pt requesting referral to pain management. Referral placed. Will continue to monitor. Low back pain As above Treatment Notes Test Name Order Date GI PANEL PCR 2021-03-10 TROPONIN HIGH-SENSITIVITY - [facility] 2021-03-10 CT ABDOMEN W/O CONTRAST - [id number] 2021-03-10 COMPREHENSIVE METABOLIC PROF 2021-03-10 Next Appt Details 4 Weeks Reason:follow up Provider Name:Anna Marie Silverman, 2021-04-09 1 0:00:00 AM, [address] [place] [address], [phone], Provider Name:Ragini Watts, 2021-04-22 03:00:00 PM, [address] [place] [address], [phone], Follow Up:4 Weeksfollow up Insurance Providers Payer Name Payer Address Payer Phone Insured Name Patient Relati onship to Insured Coverage Start Date Coverage End Date [facility] - MEDICAID ANCILLARY [facility] APG BILL [facility] [address] [facility] [id number] Ada Ayou[facility] [place] [address] [facility] [address] Ada Ayoub [facility] [employer] [address] [facility] [address] Ada Ayoub
--- OUTSIDE RECORDS SUMMARY | 2021-05-25 21:54 | CCD | Summary of Care ---
Author Author [facility] Organization [facility] Address Unknown Phone Unavailable Care Team Providers Care Oxide Furnace Tender Name Role Phone PCP Unavailable Reason for Visit * Reason Comments Encounter Details Care Team Description Date Type Department Issa Merino MD [address] [place] [address] [place] [address] [place] [address] [phone] Yvonne Beckham MD [address] [place], [place] [id number] 05/01/2021 [facility] AC1 - Encounter SURGICAL/ORTHOPEDIC AND 05/04/2021 [facility] [address] [place] [address] Allergies Comments Active Allergy Reactions Severity Noted Date Swelling of the throat Amitriptyline Swelling High 03/23/2021 Bee Venom Protein (Honey Unknown 03/23/2021 Bee) Swelling of throat Rizatriptan Swelling High 03/23/2021 Levonorgestrel-Ethinyl Unknown 03/23/2021 Estrad documented as of this encounter (statuses as of 05/04/2021) Medications End Date Status Medication Sig Dispensed Refills Start Date Active sucralfate (CARAFATE) 1 Take 1 g by 0 gram tablet mouth 4 (four) times a day. Active venlafaxine XR Take 150 mg 0 (EFFEXOR-XR) 150 mg 24 hr by mouth 1 capsule (one) time each day. Do not crush or chew. Active multivitamin (THERAGRAN) Take 1 tablet 0 tablet by mouth 1 (one) time each day. Active pantoprazole (PROTONIX) Take 40 mg by 0 40 mg EC tablet mouth 2 (two) times a day. Do not crush, chew, or split. Active mirtazapine (REMERON) 15 Take 15 mg by 0 mg tablet mouth 1 (one) time each day at night. Active brexpiprazole (Rexulti) 1 Take 1 mg by 0 mg tablet mouth 1 (one) time each day. Active levothyroxine (SYNTHROID) Take by mouth 0 125 mcg tablet 1 (one) time each day before breakfast. Active ondansetron (ZOFRAN-ODT) Take 4 mg by 0 4 mg dispersible tablet mouth every 8 (eight) hours if needed for nausea or vomiting. Active tiZANidine (ZANAFLEX) 4 Take 4 mg by 0 mg tablet mouth every 6 (six) hours if needed for muscle spasms. Active prazosin (MINIPRESS) 1 mg Take 1 mg by 0 capsule mouth 1 (one) time each day at night. 05/04/2022 Active miSOPROStoL (CYTOTEC) 200 Take 1 tablet 120 tablet 11 mcg tablet (200 mcg 1 total) by mouth 4 (four) times a day. Active HYDROcodone-acetaminophen Take 1 tablet 3 tablet 0 (NORCO) 7.5-325 mg per by mouth 1 tablet every 6 (six) hours if needed for moderate pain or severe pain for up to 3 doses. 05/02/2021 Discontinued (Therapy comple asher) gabapentin (NEURONTIN) Take 1,200 mg 0 600 mg tablet by mouth 3 (three) times a day. 05/01/2021 Discontinued ferrous sulfate 325 mg Take 325 mg 0 (65 mg iron) tablet by mouth 1 (one) time each day with breakfast. 05/02/2021 Discontinued (Therapy comple asher) methylcellulose, Take 2 14 tablet 0 laxative, (CITRUCEL) 500 tablets 1 mg tablet (1,000 mg total) by mouth 2 (two) times a day. documented as of this encounter (statuses as of 05/04/2021) Active Problems Problem Noted Date Hematemesis 05/02/2021 Melena 05/02/2021 Upper GI bleed 05/02/2021 Acute blood loss anemia 05/02/2021 Peptic ulcer disease 04/25/2021 Hypoglycemia 04/25/2021 PTSD (post-traumatic stress disorder) 04/25/2021 Hypothyroidism 04/25/2021 Anemia 04/25/2021 Crohn's colitis 03/23/2021 Intractable abdominal pain 03/23/2021 Crohn's disease Anxiety documented as of this encounter (statuses as of 05/04/2021) Social History Date Tobacco Use Types Packs/Day Years Used Quit: 03/20/2021 Former Smoker Smokeless Tobacco: Never Used Comments Alcohol Use Standard Drinks/Week Quit 12/03/20 Not Currently 0 (1 standard drink = 0.6 o z pure alcohol) Sex Assigned at Date Recorded Not on file documented as of this encounter Last Filed Vital Signs Reading Time Taken Comments Vital Sign 107/63 05/04/2021 8:00 AM EDT Blood Pressure 50 05/04/2021 8:00 AM EDT Pulse 36.2 C (97.2 F) 05/04/2021 8:00 AM EDT Temperature 18 05/04/2021 8:00 AM EDT Respiratory Rate 99% 05/04/2021 8:00 AM EDT Oxygen Saturation - - Inhaled Oxygen Concentration 77.1 kg (170 lb) 05/01/2021 10:35 PM EDT Weight 174 cm (5' 8.5") 05/01/2021 10:35 PM EDT Height 25.47 05/01/2021 10:35 PM EDT Body Mass Index documented in this encounter Discharge Instructions * Instructions* Julia Lang RN - 05/04/2021 Images from the original note were not included. Gastrointestinal Bleeding Gastrointestinal (GI) bleeding is bleeding somewhere along the path that food tr avels through the body (digestive tract). This path is anywhere between the mout h and the opening of the butt (anus). You may have blood in your poop (stool) or have black poop. If you throw up (vomit), there may be blood in it. This condition can be mild, serious, or even life-threatening. If you have a lot of bleeding, you may need to stay in the hospital. What are the causes? This condition may be caused by: Irritation and swelling of the esophagus (esophagitis). The esophagus is pa rt of the body that moves food from your mouth to your stomach. Swollen veins in the butt (hemorrhoids). Areas of painful tearing in the opening of the butt (anal fissures). These are often caused by passing hard poop. Pouches that form on the colon over time (diverticulosis). Irritation and swelling (diverticulitis) in areas where pouches have formed on the colon. Growths (polyps) or cancer. Colon cancer often starts out as growths that a re not cancer. Irritation of the stomach lining (gastritis). Sores (ulcers) in the stomach. What increases the risk? You are more likely to develop this condition if you: Have a certain type of infection in your stomach (Helicobacter pylori infec tion). Take certain medicines. Smoke. Drink alcohol. What are the signs or symptoms? Common symptoms of this condition include: Throwing up (vomiting) material that has bright red blood in it. It may loo k like coffee grounds. Changes in your poop. The poop may: ? Have red blood in it. ? Be black, look like tar, and smell stronger than normal. ? Be red. Pain or cramping in the belly (abdomen). How is this treated? Treatment for this condition depends on the cause of the bleeding. For example: Sometimes, the bleeding can be stopped during a procedure that is done to f ind the problem (endoscopy or colonoscopy). Medicines can be used to: ? Help control irritation, swelling, or infection. ? Reduce acid in your stomach. Certain problems can be treated with: ? Creams. ? Medicines that are put in the butt (suppositories). ? Warm baths. Surgery is sometimes needed. If you lose a lot of blood, you may need a blood transfusion. If bleeding is mild, you may be allowed to go home. If there is a lot of bleedin g, you will need to stay in the hospital. Follow these instructions at home: Take [id number] and prescription medicines only as told by your docto r. Eat foods that have a lot of fiber in them. These foods include beans, whol e grains, and fresh fruits and vegetables. You can also try eating 13 prun es each day. Drink enough fluid to keep your pee (urine) pale yellow. Keep all follow-up visits as told by your doctor. This is important. Contact a doctor if: Your symptoms do not get better. Get help right away if: Your bleeding does not stop. You feel dizzy or you pass out (faint). You feel weak. You have very bad cramps in your back or belly. You pass large clumps of blood (clots) in your poop. Your symptoms are getting worse. You have chest pain or fast heartbeats. Summary GI bleeding is bleeding somewhere along the path that food travels through the body (digestive tract). This bleeding can be caused by many things. Treatment depends on the cause of the bleeding. Take medicines only as told by your doctor. Keep all follow-up visits as told by your doctor. This is important. This information is not intended to replace advice given to you by your health c are provider. Make sure you discuss any questions you have with your health care provider. Document Revised: 03/08/2019 Document Reviewed: 03/08/2019 [email or web address] Patient Education 2020 [employer]. documented in this encounter Progress Notes * Yvonne Beckham MD - 05/03/2021 3:58 PM EDT PROGRESS NOTE SUBJECTIVE HPI Patient seen examined at bedside. Gastroenterology as well as General surgery c onsultation input noted. Per Dr. East with Bariatric surgery, Dr. Lowry will reach out to Dr. Paul at [facility] on Wednesday with regards to PEG tube recomme ndations on that were reported by the patient. Currently patient is in no acute distress and hemodynamically stable. Review of Systems Continues to have epigastric pain otherwise negative OBJECTIVE Physical Exam General: No acute distress, sitting upright on bed, doing arts and crafts HEENT: GABRIEL, oral mucosa moist, NC/AT head Cardiovascular: S1-S2 positive, regular rate and rhythm Pulmonary: Clear to auscultation bilaterally, no wheezing no rhonchi no rales, no accessory muscle use Abdomen: Soft, epigastric discomfort, nondistended, bowel sounds present all 4 quadrants, no rigidity, no rebound, no guarding Extremities: No cyanosis, no edema, peripheral pulses intact in all 4 extremiti es Neuro: No acute deficits appreciated, patient awake alert oriented x3 Psych: Mood stable LAST RECORDED VITALS Temp: [36.1 C (97 F)-36.8 C (98.3 F)] 36.8 C (98.3 F) Heart Rate: [50-55] 50 Resp: [14-22] 20 BP: (90-102)/(45-67) 100/67 Current I/O I/O last 3 completed shifts: In: 1785.8 (23.2 mL/kg) [I.V.:420 (5.4 mL/kg); Blood:365.8; IV Piggyback:1000] Out: 200 (2.6 mL/kg) [Urine:200 (0.1 mL/kg/hr)] Weight: 77.1 kg I/O this shift: In: 290 [P.O.:290] Out: - LABS Recent Results (from the past 24 hour(s)) Hematocrit Collection Time: 05/02/21 7:00 PM Result Value Ref Range Hematocrit 33.3 (L) 37.0 - 47.0 % Hemoglobin Collection Time: 05/02/21 7:00 PM Result Value Ref Range Hemoglobin 10.5 (L) 12.0 - 16.0 g/dl Hematocrit Collection Time: 05/02/21 11:59 PM Result Value Ref Range Hematocrit 34.1 (L) 37.0 - 47.0 % Hemoglobin Collection Time: 05/02/21 11:59 PM Result Value Ref Range Hemoglobin 10.6 (L) 12.0 - 16.0 g/dl Basic metabolic panel Collection Time: 05/03/21 4:00 AM Result Value Ref Range Blood Urea Nitrogen 11 7 - 18 mg/dl Creatinine 0.72 0.51 - 0.95 mg/dl Glomerular Filtration Rate >90.00 mL/min/1.73m2 Glucose 69 (L) 70 - 110 mg/dl Calcium 8.5 8.5 - 10.1 mg/dl Sodium 138 136 - 145 mEq/L Potassium 3.8 3.5 - 5.1 mEq/L Chloride 110.0 (H) 98.0 - 107.0 mEq/L Anion Gap 11.3 Carbon Dioxide 20.5 (L) 21.0 - 32.0 mMol/L CBC and differential Collection Time: 05/03/21 4:00 AM Result Value Ref Range WBC 5.87 4.80 - 10.00 x1000/ul RBC 4.05 (L) 4.20 - 5.40 x1Mil/ul Hemoglobin 10.8 (L) 12.0 - 16.0 g/dl Hematocrit 34.2 (L) 37.0 - 47.0 % MCV 84.4 81.0 - 99.0 fL MCH 26.7 (L) 27.0 - 31.0 pg MCHC 31.6 (L) 32.2 - 37.0 g/dl RDW 15.0 (H) 11.5 - 14.5 % Platelet Count 204 130 - 400 x1000/ul MPV 10.5 9.4 - 12.4 fL Neutrophils 50.9 40.0 - 74.0 % Lymphocytes 37.6 19.0 - 48.0 % Monocytes 8.2 3.4 - 9.0 % Eosinophils 2.2 0.0 - 7.0 % Basophils 0.9 0.0 - 2.0 % Immature Granulocytes 0.2 0.0 - 0.5 % Nucleated RBCs 0.00 0.00 - 0.20 % Abs. Neutrophils 2.99 1.92 - 8.31 x1000/ul Abs. Lymphocyte 2.21 1.20 - 3.70 x1000/ul Abs. Monocytes 0.48 0.14 - 0.97 x1000/ul Abs. Eosinophils 0.13 0.00 - 0.76 x1000/ul Abs. Basophils 0.05 0.00 - 0.22 x1000/ul Abs. Immature Gran. 0.01 0.00 - 0.02 x1000/ul Abs. Nucleated RBCs 0.00 0.00 - 0.02 x1000/ul Prothrombin time INR on therapy Collection Time: 05/03/21 4:00 AM Result Value Ref Range PT,Patient (on Anticoag. Therapy) 13.6 Seconds INR (on Anticoagulant Therapy) 1.2 (L) 2.0 - 3.5 PROBLEM LIST Patient Active Problem List Diagnosis Crohn's colitis (CMS/HCC) Intractable abdominal pain Crohn's disease (CMS/HCC) Anxiety Peptic ulcer disease Hypoglycemia PTSD (post-traumatic stress disorder) Hypothyroidism Anemia Hematemesis Melena Upper GI bleed Acute blood loss anemia ASSESSMENT AND PLAN Hematemesis. Melena. Upper GI bleed in a patient with history of gastric bypass surgery and marginal ulcer. Patient will be kept NPO, start on Protonix 80 mg IV times once and Prot aaron 8 milligram/hour drip. Continue Carafate. Cytotec added per bariatric thurman ery recommendations, 05/03. Gastroenterology as well as bariatric surgery consultation input noted. Dr. Lowry will reach out to Dr. Paul at [facility] for further details on PEG tube recommendations. Per Gastroenterology consult note, no immediate need for upper GI procedure at t his moment in time. We will continue to see the patient as needed. Acute blood loss anemia secondary to above. Her H&H is 10.3 and 32.2. Monitor H&H every 6 hours and transfuse as needed. H&H continues to remain stable and in fact is up trending. Hypothyroidism. Continue levothyroxine. Depression, anxiety and PTSD. Continue Effexor, Abilify, Remeron and Minipress. Deep vein thrombosis prophylaxis has been addressed with SCDs bilaterally. Avoi d heparin products secondary to GI bleed. CODE STATUS. Patient is full code. Prognosis of this patient is fair. . YVONNE BECKHAM MD 05/03/21 * Estelle Selby RD CDN - 05/03/2021 3:21 PM EDT Adult Nutrition Assessment Name: Ada Ayoub Date: 1980 Date of Visit: 05/03/21 Date of Admission: 05/01/2021 Reason for Assessment: NPO/clears x 3 days Nutrition Plan: Recommend low fiber once medically able. Please weigh patient as weight on admission was stated Interview completed with patient Nutritional Orders Allergies Allergen Reactions Amitriptyline Swelling Swelling of the throat Maxalt [Rizatriptan] Swelling Swelling of throat Bee Venom Protein (Honey Bee) Unknown Seasonale (91) [Levonorgestrel-Ethinyl Estrad] Unknown Dietary Orders (From admission, onward) Start Ordered 05/03/21737 Diet Clear liquid Diet effective now Question: Diet type Answer: Clear liquid 05/03/21 07 Nutrition Support Tube feeding: n/a Parenteral Nutrition: n/a IV Fluids: n/a Assessment Food/Nutrition History Diet/Nutritional Supplements prior to admission: Regular diet however has been r eadmitted and has not been eating well for a few weeks Appetite prior to admission: poor to fair Access to food/supplies: yes Nutrition knowledge/Beliefs: NILA Medication/Herbal Supplements/Complementary medicine: NILA Physical Activity: NILA Nutritional Problem/Concern per pt continues with poor intake Anthropometrics Measurements Height: 1.74 m (5' 8.5") Admit Weight: 77.1 kg (170 lb) 05/01 stated Most Current Weight: 77.1 kg (170 lb) 05/01 stated Body mass index is 25.47 kg/m. BMI Indicates: overweight IBW: 142.5 lb +/- 10% %IBW: 119% ABW: n/a lb (n/a kg) Frame Size: medium Weight history UBW: Still unable to state actual weight Weight Changes: 10 lb/5.6 % in 1 month (severe if accurate) Wt Readings from Last 5 Encounters: 05/01/21 77.1 kg (170 lb) stated 04/25/21 80.3 kg (177 lb) 03/23/21 82 kg (180 lb 12.4 oz) unknown Biochemical Data, tests and procedures Lab Results Component Value Date GLUCOSE 69 (L) 05/03/2021 CALCIUM 8.5 05/03/2021 NA 138 05/03/2021 K 3.8 05/03/2021 CO2 20.5 (L) 05/03/2021 CL 110.0 (H) 05/03/2021 BUN 11 05/03/2021 CREATININE 0.72 05/03/2021 Lab Results Component Value Date ALBUMIN 3.1 (L) 05/02/2021 Lab Comments: Glu L Tests/Procedures: Blood transfusion Client History Problem List Items Addressed This Visit None Past Medical History: Diagnosis Date Anxiety Crohn's disease (CMS/HCC) Disease of thyroid gland Gastritis Hypoglycemia Peptic ulcer PTSD (post-traumatic stress disorder) Social History/Personal Data: lives with mom at home Estimated Needs Calories per day: 5632-1985 kcal/day (25 - 30 kcal/kg) Protein per day: 65-78 g/day (1.0 - 1.2 g/kg) Fluid per day: 8576-3522 ml/day (30 - 35 ml/kg) Comments: needs based on IBW 65 kg and assessed for age and maintenance of lean body mass Nutrition Focused Physical Findings Overall appearance: appears well nourished Body language: sitting up in bed, calm Nerves and cognition: alert Head and eyes: WDL Cardiovascular-pulmonary system: , Extremities, muscles and bones: No edema Digestive system: BM 05/01 Skin: intact Visit Vitals BP 100/67 Pulse 50 Temp 36.8 C (98.3 F) (Oral) Resp 20 Current oral intake: npo/clears x 3 days and not eating well FINANCIAL AID COORDINATOR Diagnosis Nutrition Diagnosis: inadequate oral intake related to Upper GIB as evidenced by nutrient intake of </+50% of estimated energy needs for >/=5 days (severe). Interventions Nutrition Prescription Meals and Snacks: Low fiber diet once medically able Enteral nutrition: n/a Parenteral nutrition: n/a Supplements Medical food supplements: n/a Vitamin and mineral supplements: MVI Bioactive substance management: n/a Feeding Assistance: n/a Nutrition-related medication management: Protonix, Carafate, synthroid, Protonix , Remeron, Minipress Nutrition Education/Counseling Nutrition Education: n/a Coordination of Care Collaboration and referral of nutrition care: n/a Discharge and transfer of nutrition care to new setting or provider: n/a Monitoring and Evaluating Nutrition Monitoring and Goals Food/Nutrition-Related History Outcomes: diet to advance within 2-3 days Anthropometric Measurement Outcomes: weight to be obtained Biochemical Data, Medical Tests, and Procedure Outcomes: Euglcyemia Nutrition-Focused Physical Finding Outcomes: n/a Mass Communications Instructor service Mass Communications Instructor service utilized: n/a Follow-up Level: B * Marcie Jimenez - 05/02/2021 3:29 PM EDT Discharge Planning Progress Note Patient Name: Ada Ayoub Today's Date: 05/02/2021 Assessment: SW agrees with the documentation completed by previous catalytic case operator. Discharge Planning: Living Arrangements: Parent Support Systems: Parent Assistance Needed: None Type of Residence: Private residence Home Care Services: No Patient expects to be discharged to:: Home Can we notify your caregiver or family member of your admission?: Yes Caregiver: Celina Herrera Caregiver Information: [phone] * Lolly Diaz - 05/02/2021 1:46 PM EDT Discharge Planning Progress Note Patient Name: Ada Ayoub Today's Date: 05/02/2021 Assessment: Met with patient at bedside to discuss home life and dc plan, dc carlos nning guide issued. Patient does not have a designated HCP at this time and does not wish to appoint one at this time. Caregiver declined. Patient states she is currently residing with her mom, is independent with her A DLs and is able to drive. Patient does not have any DME at home. No human resource advisor and no home oxygen. Patient does not receive dialysis treatment. PCP is Dr. Adis Pineda ra (sp???) at [facility] and pharmacy is [facility] in [place]. Insuran ce confirmed. IMM reviewed with patient, states understanding. No PT/OT ordered. Anticipated discharge plan is home once medically stable. Discharge Planning: Living Arrangements: Parent Support Systems: Parent Assistance Needed: None Type of Residence: Private residence Home Care Services: No Patient expects to be discharged to:: Home Can we notify your caregiver or family member of your admission?: Yes Caregiver: Celina Herrera Caregiver Information: [phone] documented in this encounter H&P Notes * Issa Merino MD - 05/02/2021 1:00 AM EDT Images from the original note were not included. .H & P PCP No primary care provider on file. CHIEF COMPLAINT: Hematemesis, melena and abdominal pain for 2 days. History Of Present Illness: HPI Mrs. Ada Ayoub is a 40-year-old female transferred from [facility] to [facility] as a direct admit with chief complaint of hematemesis, melena and a bdominal pain for 2 days. History is obtained from patient, ER provider and rev iew of medical records. According to them, patient has history of peptic ulcer disease and marginal ulce r in setting of gastric bypass surgery was admitted to our hospital from 021-04/28/2021. She developed nausea, vomiting, hematemesis, melena and abdomin al pain for 2 days. She initially presented to [facility]. Her lab work showed H&H of 10.[address] abdomen pelvis interpreted as postoperative changes including cholecystectomy, hysterectomy, appendectomy and lumbosacral spine fusion. Gastric bypass. No acute abdominal or pelvic abnormality. As they did not have bariatric surgeon at their hospital. ER provider discussed with our bariatric surgeon Dr. Lowry who recommended patient to be transferred to our hospital for further evaluation. Her recent upper GI endoscopy was on 03/25/[address] Cisse which showed normal esophagus. Gastric bypass with a normal-sized pouch and intact staple line. Gastrojejunal anastomosis characterized by ulceration with oozing G-J ulcer. Oozing gastrojejunal ulcer with a visible vessel treated with argon plasma coagulation. Normal examined jejunum. Marginal ulcers. She underwent colonoscopy on 03/27/[address] Cisse interpreted as preparation of the colon was fair. The examined portion of the ileum was normal. Internal hemorrhoids. The examination was otherwise normal. No evidence of Crohn's disease. Redundant colon. Irritable bowel syndrome. Past Medical History: She has a past medical history of Anxiety, Crohn's disease (CMS/HCC), Disease of thyroid gland, Gastritis, Hypoglycemia, Peptic ulcer, and PTSD (post-traumatic stress disorder). Past Surgical History: She has a past surgical history that includes Appendectomy; Cholecystectomy; Hys terectomy; and Gastric bypass. Social History: She reports that she quit smoking about 6 weeks ago. She has never used smokeles s tobacco. She reports previous alcohol use. She reports previous drug use. Drug s: Amphetamines and Cocaine. Family History: family history includes Diabetes in her mother. Allergies: Amitriptyline, Maxalt [rizatriptan], Bee venom protein (honey bee), and Seasonal e (91) [levonorgestrel-ethinyl estrad] Medications: I have reviewed and reconciled, where appropriate, the patient's current medicat ions. Prior to Admission medications Medication Sig Start Date End Date Taking? Authorizing Provider prazosin (MINIPRESS) 1 mg capsule Take 1 mg by mouth 1 (one) time each day at [facility]. Yes Historical Provider, tiZANidine (ZANAFLEX) 4 mg tablet Take 4 mg by mouth every 6 (six) hours if need ed for muscle spasms. Yes Historical Provider, brexpiprazole (Rexulti) 1 mg tablet Take 1 mg by mouth 1 (one) time each day. Historical Provider, levothyroxine (SYNTHROID) 125 mcg tablet Take by mouth 1 (one) time each day bef ore breakfast. Historical Provider, mirtazapine (REMERON) 15 mg tablet Take 15 mg by mouth 1 (one) time each day at night. Historical Provider, multivitamin (THERAGRAN) tablet Take 1 tablet by mouth 1 (one) time each day. Historical Provider, ondansetron (ZOFRAN-ODT) 4 mg dispersible tablet Take 4 mg by mouth every 8 (eig ht) hours if needed for nausea or vomiting. Historical Provider, pantoprazole (PROTONIX) 40 mg EC tablet Take 40 mg by mouth 2 (two) times a day. Do not crush, chew, or split. Historical Provider, sucralfate (CARAFATE) 1 gram tablet Take 1 g by mouth 4 (four) times a day. H istorical Provider, venlafaxine XR (EFFEXOR-XR) 150 mg 24 hr capsule Take 150 mg by mouth 1 (one) ti me each day. Do not crush or chew. Historical Provider, ferrous sulfate 325 mg (65 mg iron) tablet Take 325 mg by mouth 1 (one) time eac h day with breakfast. 05/01/21 Historical Provider, gabapentin (NEURONTIN) 600 mg tablet Take 1,200 mg by mouth 3 (three) times a da y. 05/02/21 Historical Provider, lactobacillus rhamnosus (PROBIOTIC EXTRA STRENGTH) 20 billion cell capsule Take 1 capsule by mouth 1 (one) time each day. 03/27/21 04/28/21 Lauren Monroy MD methylcellulose, laxative, (CITRUCEL) 500 mg tablet Take 2 tablets (1,000 mg tot al) by mouth 2 (two) times a day. Patient not taking: Reported on 05/01/2021 03/27/21 05/02/21 Lauren Monroy MD Review Of Systems: Review of Systems Constitutional: Negative for chills, fatigue and fever. HENT: Negative for ear discharge, nosebleeds and sore throat. Eyes: Negative for visual disturbance. Respiratory: Negative for cough, chest tightness, shortness of breath and wheezi ng. Cardiovascular: Negative for chest pain, palpitations and leg swelling. Gastrointestinal: Positive for abdominal pain, nausea and vomiting. Negative for diarrhea. Hematemesis and melena present. Genitourinary: Negative for dysuria, frequency and urgency. Neurological: Negative for dizziness, tremors, seizures, syncope, facial asymmet ry, speech difficulty, weakness, light-headedness, numbness and headaches. Last Recorded Vitals: Temp: [36 C (96.8 F)] 36 C (96.8 F) Heart Rate: [58] 58 Resp: [18] 18 BP: (112)/(60) 112/60 Physical Examination: Physical Exam Constitutional: General: She is not in acute distress. Appearance: Normal appearance. She is not ill-appearing, toxic-appearing or d iaphoretic. HENT: Head: Normocephalic and atraumatic. Mouth/Throat: Mouth: Mucous membranes are moist. Eyes: General: No scleral icterus. Conjunctiva/sclera: Conjunctivae normal. Neck: Vascular: No carotid bruit. Cardiovascular: Rate and Rhythm: Normal rate and regular rhythm. Pulses: Normal pulses. Heart sounds: S1 normal and S2 normal. No murmur heard. Pulmonary: Effort: No tachypnea, accessory muscle usage or respiratory distress. Breath sounds: No decreased breath sounds, wheezing, rhonchi or rales. Abdominal: General: Bowel sounds are normal. There is no distension. Palpations: Abdomen is soft. There is no mass. Tenderness: There is abdominal tenderness in the epigastric area. There is no guarding. Musculoskeletal: Cervical back: Neck supple. No tenderness. Right lower leg: No edema. Left lower leg: No edema. Lymphadenopathy: Cervical: No cervical adenopathy. Skin: General: Skin is warm. Capillary Refill: Capillary refill takes less than 2 seconds. Neurological: General: No focal deficit present. Mental Status: She is oriented to person, place, and time. Mental status is a t baseline. LABS & Current Imaging: I have reviewed the available lab and diagnostics results as appropriate and not e the following relevant results Problem List: Principal Problem: Upper GI bleed Active Problems: Hematemesis Melena Acute blood loss anemia Assessment and Plan: Hematemesis. Melena. Upper GI bleed in a patient with history of gastric bypass surgery and marginal ulcer. Patient will be kept NPO, start on Protonix 80 mg IV times once and Prot aaron 8 milligram/hour drip. Continue Carafate. Obtain consultation with Gastro enterology and bariatric surgeon. Acute blood loss anemia secondary to above. Her H&H is 10.3 and 32.2. Monitor H&H every 6 hours and transfuse as needed. Hypothyroidism. Continue levothyroxine. Depression, anxiety and PTSD. Continue Effexor, Abilify, Remeron and Minipress. Deep vein thrombosis prophylaxis has been addressed with SCDs bilaterally. Avoi d heparin products secondary to GI bleed. CODE STATUS. Patient is full code. Prognosis of this patient is fair. This document has been dictated using voice recognition software. Grammatical or typographical errors may be present which were not identified prior to final si gnature. . ISSA MERINO MD 05/02/21 Associated attestation - Kashif Aguilar MD - 05/02/2021 5:45 PM EDT Continue IV PPI drip p.o. Carafate serial complete blood counts continue moderat e vital signs and signs of active bleeding he changes will need repeat upper end oscopy documented in this encounter Consult Notes * Bandar East MD - 05/02/2021 8:57 PM EDT Associated Order(s): IP CONSULT TO GENERAL SURGERY Reason For Consult GI Bleed Ada Ayoub [id number] Assessment and Plan: Principal Problem: Upper GI bleed Active Problems: Hematemesis Melena Acute blood loss anemia 1. Patient was seen on recent admission on 04/[address] Lowry for intractable mar ginal ulcer. She was discharged with plans for outpatient follow-up and presents with complaints of abdominal pain, nausea, vomiting and dark stools 2. I discussed the patient with Dr Lowry and as per his documented assessment o n 04/27/2021, he believes the patient needs to have her GI tract continuity leonila red at some point. He is planning on talking to Dr Paul at [facility], since th is was previously his patient, and to discuss his reasoning for suggesting a fee ding gastrostomy tube. The conversation with Dr Paul has not yet occurred 3. The patient is hemodynamically stable and her H/H is unchanged from the value s prior to her discharge 4. For now, patient should continue the maximal ulcer therapy with PPI BID, arian fate 1g QID and cytotec 200mcg QID 5. No surgical intervention is planned for the next few days until Dr Lowry has discussed the case with Dr Paul at [facility] and devised a surgical plan 6. Patient may have a diet as tolerated Chief Complaint: Hematemesis, melena and abdominal pain for 2 days HPI: Ada Ayoub is a 40 y.o. female presenting with abdominal pain, for 2 days with associated coffee ground emesis and melena. The patient was recently discha rged from the hospital for similar symptoms. She was seen in consult on by Dr Lowry and his plan at that time can be reviewed. During the last admiss ion, she improved with triple ulcer therapy. She has a history of morbid obesity and Crohn's disease. Had a laparoscopic gastric bypass in 2012. Presented to [facility] in 2015 with a perforated anastomotic ulcer where a n open surgery with Prakash patch was performed. She recovered however the ulcer did not heal and in 2016 Dr. Gongora did a open anastomotic revision at [facility]. Apparently the ulcer still has not healed. She has seen Dr. Dean santana at [facility], she says he recommended a feeding gastrostomy tube to someho w help the ulcer heal. She reports she cannot tolerate po without developing abd ominal pain, nausea and vomiting. She denies recent smoking, NSAIDs or caffeine. Past Medical History: Past Medical History: Diagnosis Date Anxiety Crohn's disease (CMS/HCC) Disease of thyroid gland Gastritis Hypoglycemia Peptic ulcer PTSD (post-traumatic stress disorder) Past Surgical History: Past Surgical History: Procedure Laterality Date APPENDECTOMY CHOLECYSTECTOMY GASTRIC BYPASS HYSTERECTOMY Medications Prior to Admission: Medications Prior to Admission Medication Sig Dispense Refill Last Dose prazosin (MINIPRESS) 1 mg capsule Take 1 mg by mouth 1 (one) time each da y at night. 04/30/2021 at Unknown time tiZANidine (ZANAFLEX) 4 mg tablet Take 4 mg by mouth every 6 (six) hours if needed for muscle spasms. Unknown at Unknown time brexpiprazole (Rexulti) 1 mg tablet Take 1 mg by mouth 1 (one) time each day. 05/01/2021 at Unknown time levothyroxine (SYNTHROID) 125 mcg tablet Take by mouth 1 (one) time each day before breakfast. 05/01/2021 at Unknown time mirtazapine (REMERON) 15 mg tablet Take 15 mg by mouth 1 (one) time each day at night. 04/30/2021 at Unknown time multivitamin (THERAGRAN) tablet Take 1 tablet by mouth 1 (one) time each day. 05/01/2021 at Unknown time ondansetron (ZOFRAN-ODT) 4 mg dispersible tablet Take 4 mg by mouth every 8 (eight) hours if needed for nausea or vomiting. 05/01/2021 at Unknown time pantoprazole (PROTONIX) 40 mg EC tablet Take 40 mg by mouth 2 (two) times a day. Do not crush, chew, or split. 05/01/2021 at Unknown time sucralfate (CARAFATE) 1 gram tablet Take 1 g by mouth 4 (four) times a da y. 05/01/2021 at Unknown time venlafaxine XR (EFFEXOR-XR) 150 mg 24 hr capsule Take 150 mg by mouth 1 ( one) time each day. Do not crush or chew. 05/01/2021 at Unknown time Allergies: Amitriptyline, Maxalt [rizatriptan], Bee venom protein (honey bee), a nd Seasonale (91) [levonorgestrel-ethinyl estrad] Family History: Family History Problem Relation Age of Onset Diabetes Mother Social History: Social History Tobacco Use Smoking status: Former Smoker Quit date: 03/20/2021 Years since quittin.1 Smokeless tobacco: Never Used Substance Use Topics Alcohol use: Not Currently Comment: Quit 12/03/20 Drug use: Not Currently Types: Amphetamines, Cocaine Comment: quit 12/03/20 Review of System: Pertinent items are noted in HPI. Physical Exam: Temp: [36 C (96.8 F)-37.1 C (98.8 F)] 36.5 C (97.7 F) Heart Rate: [50-58] 55 Resp: [16-20] 16 BP: (74-112)/(22-64) 102/64 General Appearance: awake, alert, oriented, in no acute distress Sitting comfortably in bed head shows no acute trauma no hair loss Eyes extraocular muscles intact pupils round reactive to light , sclera clear an d not icteric Neck is supple Lungs clear, no rales rhonchi or wheezes Heart regular rate rhythm Abdomen soft, flat, active bowel sounds, no masses, no guarding, no rebound, wel l-healed long midline scar, possible small incisional hernia, very mild epigastr ic tenderness Extremities unremarkable, moving all extremities Neurologically grossly intact Labs, Imaging and Other Diagnostics: Diagnostics test reviewed: Recent Results (from the past 24 hour(s)) Type and screen Collection Time: 05/02/21 4:37 AM Result Value Ref Range ABO-Rh Typing A Positive Antibody Screen Negative Specimen Expires Date/Time [id number] PATIENT HISTORY Pt Hx Checked CMP Collection Time: 05/02/21 4:37 AM Result Value Ref Range AST 14 (L) 15 - 37 IU/L ALT 56 13 - 56 IU/L Alkaline Phosphatase 110 50 - 136 mIU/ml Total Bilirubin 1.40 (H) 0.20 - 1.00 mg/dl Blood Urea Nitrogen 12 7 - 18 mg/dl Creatinine 0.79 0.51 - 0.95 mg/dl Glomerular Filtration Rate 81.00 mL/min/1.73m2 Glucose 85 70 - 110 mg/dl Calcium 8.7 8.5 - 10.1 mg/dl Total Protein 7.1 6.4 - 8.2 g/dl Albumin 3.1 (L) 3.4 - 5.0 g/dl Sodium 139 136 - 145 mEq/L Potassium 3.6 3.5 - 5.1 mEq/L Chloride 112.0 (H) 98.0 - 107.0 mEq/L Anion Gap 6.6 Carbon Dioxide 24.0 21.0 - 32.0 mMol/L Hematocrit Collection Time: 05/02/21 4:37 AM Result Value Ref Range Hematocrit 31.7 (L) 37.0 - 47.0 % Hemoglobin Collection Time: 05/02/21 4:37 AM Result Value Ref Range Hemoglobin 9.7 (L) 12.0 - 16.0 g/dl Second (2nd) Confirmation Type Collection Time: 05/02/21 4:37 AM Result Value Ref Range 2ND CONFIRMATION TYPE A Positive Prepare RBC: 1 Units No Collection Time: 05/02/21 9:31 AM Result Value Ref Range 01 - Product ID Red Blood Cells 01 - Unit Number [id number] 01 - Cross Match Compatible 01 - Status Info Issued Product Code [id number] 01 - Blood Type A Pos - Issue Date/Time [id number] 01 - Specimen Expiration Date [id number] Volume 341 Iron and TIBC Collection Time: 05/02/21 11:52 AM Result Value Ref Range Iron Saturation 27 Iron 97 50 - 170 ug/dl Total Iron-Binding Capacity 362 250 - 450 ug/dl Ferritin Collection Time: 05/02/21 11:52 AM Result Value Ref Range Ferritin 9.8 3.0 - 388.0 ng/ml Vitamin B12 and Folate Collection Time: 05/02/21 11:52 AM Result Value Ref Range [facility] Vitamin B-12 324 211 - 911 pg/ml Folate 21.37 5.39 - 9,999.00 ng/ml Hematocrit Collection Time: 05/02/21 11:52 AM Result Value Ref Range Hematocrit 30.7 (L) 37.0 - 47.0 % Hemoglobin Collection Time: 05/02/21 11:52 AM Result Value Ref Range Hemoglobin 9.5 (L) 12.0 - 16.0 g/dl CBC (Hemogram) Collection Time: 05/02/21 11:52 AM Result Value Ref Range WBC 5.18 4.80 - 10.00 x1000/ul RBC 3.71 (L) 4.20 - 5.40 x1Mil/ul Hemoglobin 9.8 (L) 12.0 - 16.0 g/dl Hematocrit 31.1 (L) 37.0 - 47.0 % MCV 83.8 81.0 - 99.0 fL MCH 26.4 (L) 27.0 - 31.0 pg MCHC 31.5 (L) 32.2 - 37.0 g/dl RDW 15.5 (H) 11.5 - 14.5 % Platelet Count 213 130 - 400 x1000/ul MPV 10.0 9.4 - 12.4 fL Nucleated RBCs 0.00 0.00 - 0.20 % Abs. Nucleated RBCs 0.00 0.00 - 0.02 x1000/ul Hematocrit Collection Time: 05/02/21 7:00 PM Result Value Ref Range Hematocrit 33.3 (L) 37.0 - 47.0 % Hemoglobin Collection Time: 05/02/21 7:00 PM Result Value Ref Range Hemoglobin 10.5 (L) 12.0 - 16.0 g/dl Lab Results Component Value Date WBC 5.18 05/02/2021 HGB 10.5 (L) 05/02/2021 HCT 33.3 (L) 05/02/2021 MCV 83.8 05/02/2021 PLT 213 05/02/2021 Lab Results Component Value Date GLUCOSE 85 05/02/2021 CALCIUM 8.7 05/02/2021 NA 139 05/02/2021 K 3.6 05/02/2021 CO2 24.0 05/02/2021 CL 112.0 (H) 05/02/2021 BUN 12 05/02/2021 CREATININE 0.79 05/02/2021 Current Imaging No image results found. Signature: BANDAR EAST MD Date: 05/02/21 Time: 8:58 PM documented in this encounter Nursing Notes * Julia Lang RN - 05/04/2021 3:23 PM EDT Up ad kacie. Lost IV access unable to obtain, provider made aware, made rounds dis charge order in place. Reviewed with patient awaiting on transportation to [facility]. * Va Ruiz RN - 05/04/2021 2:09 AM EDT Alert,oriented x 4. Medicated x 1 with Morphine for abdominal pain with some rel ief. No resp distress noted. No SOB noted. Abdomen tender,non distended. BS acti ve. No nausea or vomiting noted.Voiding without difficulty. No chest pain or diz ziness.Cont on Protonix drip. No s/s of bleeding noted. Call light in reach,safe ty maintained. EOSS: prior assessment unchanged. Medicated with Morphine in am for abdominal pa in ,result pending. Safety maintained. * Ivette Choudhary RN - 05/03/2021 10:14 AM EDT EOSS No distress present. Medicated for abdominal pain as per emar. OOB independ ent. IV Protonix running. Showered. No bleeding noted. Safety maintained. * Va Ruiz RN - 05/02/2021 11:43 PM EDT Alert,oriented x 4. Medicated x 1 with Morphine for abdominal pain with some rel ief. No resp distress noted. No SOB noted. Abdomen tender,non distended. BS acti ve. No nausea or vomiting noted.Voiding without difficulty. No chest pain or diz ziness.Cont on Protonix drip. No s/s of bleeding noted. Call light in reach,safe ty maintained. EOSS: prior assessment unchanged. Medicated with Morphine in am for abdominal pa in with some relief. Voiding without difficulty. Call light in reach,safety main tained. * Ivette Chuodhary RN - 05/02/2021 3:11 PM EDT S/P 1 unit of pRBC, No s/s of transfusion reaction. Medicated for pain as per em ar. Safety maintained. 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 * Audrey Pires RN - 05/02/2021 2:24 PM EDT Assessment per FS. Pt was hypotensive during shift. 1 unit pRBC & 1L bolus of NS given, nonsymptomatic. BP still low. Pain medicated per MAR. OOB as needed. Patient safety maintained. documented in this encounter Miscellaneous Notes * Madiha Salomon - Julia Lang RN - 05/04/2021 12:56 PM EDT Problem: Pain - Adult Goal: [...] and m aintained or improved Outcome: Progressing * Madiha Salomon - Va Ruiz RN - 05/04/2021 1:18 AM EDT Problem: Pain - Adult Goal: Verbalizes/displays adequate comfort level or baseline comfort level Outcome: Progressing Flowsheets (Taken 05/04/2021 0117) Verbalizes/displays adequate comfort level or baseline comfort level: Encourage patient to monitor pain and request assistance Assess pain using appropriate pain scale Administer analgesics based on type and severity of pain and evaluate response Problem: Infection - Adult Goal: Absence of infection during hospitalization Outcome: Progressing Problem: Safety Adult - Fall Goal: Free from fall injury Outcome: Progressing Flowsheets (Taken 05/04/2021 0117) Free from fall injury: Assess patient frequently for physical needs Identify cognitive and physical deficits and behaviors that affect risk of fall s Gaines fall precautions as indicated by assessment Educate patient/family on patient safety, including physical limitations Instruct patient to call for assistance with activity based on assessment Modify environment to reduce risk of injury Problem: Discharge Planning Goal: Discharge to home or other facility with appropriate resources Outcome: Progressing Problem: Chronic Conditions and Co-morbidities Goal: Patient's chronic conditions and co-morbidity symptoms are monitored and m aintained or improved Outcome: Progressing * Rama Hernandez RN - 05/03/2021 11:35 AM EDT Problem: Infection - Adult Goal: Absence of infection during hospitalization Outcome: Progressing Problem: Discharge Planning Goal: Discharge to home or other facility with appropriate resources Outcome: Progressing * Ivette Earl RN - 05/03/2021 9:38 AM EDT Problem: Pain - Adult Goal: [...] and m aintained or improved Outcome: Progressing * Va Stephenson RN - 05/03/2021 1:45 AM EDT Problem: Pain - Adult Goal: Verbalizes/displays adequate comfort level or baseline comfort level Outcome: Progressing Flowsheets (Taken 05/03/2021 0144) Verbalizes/displays adequate comfort level or baseline comfort level: Encourage patient to monitor pain and request assistance Assess pain using appropriate pain scale Administer analgesics based on type and severity of pain and evaluate response Problem: Infection - Adult Goal: Absence of infection during hospitalization Outcome: Progressing Problem: Safety Adult - Fall Goal: Free from fall injury Outcome: Progressing Flowsheets (Taken 05/03/2021 0144) Free from fall injury: Assess patient frequently for physical needs Identify cognitive and physical deficits and behaviors that affect risk of fall s Gaines fall precautions as indicated by assessment Educate patient/family on patient safety, including physical limitations Instruct patient to call for assistance with activity based on assessment Modify environment to reduce risk of injury Problem: Discharge Planning Goal: Discharge to home or other facility with appropriate resources Outcome: Progressing Problem: Chronic Conditions and Co-morbidities Goal: Patient's chronic conditions and co-morbidity symptoms are monitored and m aintained or improved Outcome: Progressing * Care Plan - Ivette Choudhary RN - 05/02/2021 3:01 PM EDT Problem: Pain - Adult Goal: Verbalizes/displays adequate comfort level or baseline comfort level Outcome: Not Progressing Problem: Infection - Adult Goal: Absence of infection during hospitalization Outcome: Progressing Problem: Safety Adult - Fall Goal: Free from fall injury Outcome: Progressing Problem: Discharge Planning Goal: Discharge to home or other facility with appropriate resources Outcome: Progressing Problem: Chronic Conditions and Co-morbidities Goal: Patient's chronic conditions and co-morbidity symptoms are monitored and m aintained or improved Outcome: Progressing * Nursing End of Shift - Duglas Wang RN - 05/02/2021 5:32 AM EDT Pertinent information reviewed during Handoff Report: IV's: pantoprozole (PROTONIX) infusion, Last Rate: 8 mg/hr (05/02/21 0300) New or Unfinished Orders: Pertinent Events/ End of Shift Summary: Pt arrived on floor at 2230, transfer from [place]. Complaining of abd pain, p ossible GI bleed. Protonix gtt initiated. Pt is NPO. Given IV morphine once for pain. To be seen in consult by GI and surgery. Independent to bathroom. Call wade dee in reach, safety maintained. * Madiha Salomon - Duglas Wang RN - 05/01/2021 11:32 PM EDT Problem: Pain - Adult Goal: Verbalizes/displays adequate comfort level or baseline comfort level Outcome: Not Progressing Problem: Infection - Adult Goal: Absence of infection during hospitalization Outcome: Progressing Problem: Safety Adult - Fall Goal: Free from fall injury Outcome: Progressing Problem: Discharge Planning Goal: Discharge to home or other facility with appropriate resources Outcome: Progressing Problem: Chronic Conditions and Co-morbidities Goal: Patient's chronic conditions and co-morbidity symptoms are monitored and m aintained or improved Outcome: Progressing documented in this encounter Plan of Treatment Not on filedocumented as of this encounter Procedures Comments Procedure Name Priority Date/Time Associated Diag nosis HC CBC W/ DIFFERENTIAL Routine 05/04/2021 4:32 AM EDT MAGNESIUM Routine 05/04/2021 4:32 AM EDT BASIC METABOLIC PANEL Routine 05/04/2021 4:32 AM EDT PT ON THERAPY Routine 05/03/2021 4:00 AM EDT HC CBC W/ DIFFERENTIAL Routine 05/03/2021 4:00 AM EDT BASIC METABOLIC PANEL Routine 05/03/2021 4:00 AM EDT HEMOGLOBIN Timed 05/02/2021 11:59 PM EDT HEMATOCRIT Timed 05/02/2021 11:59 PM EDT HEMOGLOBIN Timed 05/02/2021 7:00 PM EDT HEMATOCRIT Timed 05/02/2021 7:00 PM EDT TRANSFUSE RED BLOOD CELLS Routine 05/02/2021 2:51 PM EDT VITAMIN B12 AND FOLATE Routine 05/02/2021 11:52 AM EDT IRON AND TIBC Routine 05/02/2021 11:52 AM EDT CBC STAT 05/02/2021 11:52 AM EDT HEMOGLOBIN Timed 05/02/2021 11:52 AM EDT HEMATOCRIT Timed 05/02/2021 11:52 AM EDT FERRITIN Routine 05/02/2021 11:52 AM EDT PREPARE RBC Routine 05/02/2021 9:31 AM EDT SECOND (2ND) CONFIRMATION Routine 05/02/2021 TYPE 4:37 AM EDT HEMOGLOBIN Timed 05/02/2021 4:37 AM EDT HEMATOCRIT Timed 05/02/2021 4:37 AM EDT TYPE AND SCREEN STAT 05/02/2021 4:37 AM EDT COMPREHENSIVE METABOLIC Routine 05/02/2021 PANEL 4:37 AM EDT documented in this encounter Results * Magnesium (05/04/2021 4:32 AM EDT) Pathologist [facility] [place] Magnesium 2.0 1.6 - 2.6 mg/dl [facility] Comment: LABORATORIES The above 1 analytes were performed by [facility] [address] [place] [address],[facility]# [id number],[place] [address] Specimen Serum or Plasma Performing Organization Address City/State/[facility] Code P jamel Number [facility] [address] [place] [address] CRISTIAN TOMAS MD * Basic metabolic panel (05/04/2021 4:32 AM EDT) Blood Urea 15 7 - 18 mg/dl [facility] Nitrogen LABORATORIES Creatinine 0.78 0.51 - 0.95 mg/dl [facility] Comment: LABORATORIES N-Acetylcysteine (NAC) and Metamizole have the potential to falsely depress Creatinine results. Baseline values before medication adminstration are recommended. Patients undergoing treatment with phenindione will have falsely depressed results. Patients on phenindione therapy should be tested with an alternative CREA method. Toxic levels of acetaminophen may lead to falsely depressed results for patient samples. Glomerular 83.00 mL/min/1.73m2 [facility] Filtration Rate Comment: LABORATORIES GFR Reference Ranges: [...] Health and the [employer]. The [place] method used in calculating this result is traceable to IDMS standards. Glucose 86 70 - 110 mg/dl [facility] Comment: LABORATORIES Sulfasalazine has the potential to falsely depress Glucose results. Sulfapyridine has the potential to falsely elevate Glucose results. Baseline values before medication administration are recommended. Calcium 8.5 8.5 - 10.1 mg/dl [facility] Sodium 137 136 - 145 mEq/L [facility] Potassium 3.7 3.5 - 5.1 mEq/L [facility] Chloride 109.0 (H) 98.0 - 107.0 mEq/L [facility] Anion Gap 9.7 [facility] Carbon Dioxide 22.0 21.0 - 32.0 mMol/L [facility] Comment: LABORATORIES The above 10 analytes were performed by [facility] [address] [place] [address] [id number] [address] Specimen Serum or Plasma Performing Organization Address City/State/ZIP Code P jamel Number [facility] [address] [place] [address] CRISTIAN TOMAS MD * CBC and differential (05/04/2021 4:32 AM EDT) WBC 5.61 4.80 - 10.00 [facility] x1000/ul LABORATORIES RBC 4.13 (L) 4.20 - 5.40 x1Mil/ul [facility] Hemoglobin 11.1 (L) 12.0 - 16.0 g/dl [facility] Hematocrit 34.4 (L) 37.0 - 47.0 % [facility] MCV 83.3 81.0 - 99.0 fL [facility] MCH 26.9 (L) 27.0 - 31.0 pg [facility] MCHC 32.3 32.2 - 37.0 g/dl [facility] RDW 14.6 (H) 11.5 - 14.5 % [facility] Platelet Count 235 130 - 400 x1000/ul [facility] MPV 10.4 9.4 - 12.4 fL [facility] Neutrophils 51.3 40.0 - 74.0 % [facility] Lymphocytes 36.5 19.0 - 48.0 % [facility] Monocytes 9.3 (H) 3.4 - 9.0 % [facility] [facility] Eosinophils 2.0 0.0 - 7.0 % [facility] Basophils 0.7 0.0 - 2.0 % [facility] Immature 0.2 0.0 - 0.5 % [facility] Granulocytes LABORATORIES Nucleated RBCs 0.00 0.00 - 0.20 % [facility] Abs. 2.88 1.92 - 8.31 x1000/ul [facility] Neutrophils LABORATORIES Abs. Lymphocyte 2.05 1.20 - 3.70 x1000/ul [facility] Abs. Monocytes 0.52 0.14 - 0.97 x1000/ul [facility] Abs. 0.11 0.00 - 0.76 x1000/ul [facility] Eosinophils LABORATORIES Abs. 0.04 0.00 - 0.22 x1000/ul [facility] Basophils LABORATORIES Abs. Immature 0.01 0.00 - 0.02 x1000/ul [facility] Gran. LABORATORIES Abs. Nucleated 0.00 0.00 - 0.02 x1000/ul [facility] RBCs Comment: LABORATORIES The above 24 analytes were performed by [facility] [address] [place] [address]# [id number],[place] [address] Specimen Whole Blood Performing Organization Address City/State/ZIP Code P jamel Number [facility] [address] [place] [address] CRISTIAN TOMAS MD * Prothrombin time INR on therapy (05/03/2021 4:00 AM EDT) PT,Patient (on 13.6 Seconds [facility] Anticoag. Comment: LABORATORIES Therapy) Attention: Effeciive 01/03/2020 The normal range for PT (on Anticoagulant Therapy) has changed: Previous normal range: 10.1-11.3 New normal range: None Discrepant results may occur due to anticoagulant effects such as coumadin, direct thrombin inhibitors; argatroban (Acova), bivalirudin (Angiomax) or dabigatran (Pradaxa) or direct factor Xa inhibitors; rivaroxaban (Xarelto), apixaban (Eliquis) and edoxaban (Savaysa). INR (on 1.2 (L) 2.0 - 3.5 [facility] Anticoagulant Comment: LABORATORIES Therapy) Suggested therapeutic INR ranges for oral anticoagulant therapy: Indication: INR Prevention and treatment of DVT and PE 2.0 - 3.0 Prevention of systemic embolism with atrial fib., acute NV and 2.0 - 3.0 tissue prosthetic heart valves. Prevention of systemic embolism in patients with mechanical heart 2.5 - 3.5 valves. NOTE: The INR is only valid for patients on stable oral anticoagulant therapy. __ The above 2 analytes were performed by [facility] [address] [place] [address], , [place] [address] Specimen Plasma Performing Organization Address City/State/[facility] Code P jamel Number [facility] [address] [place] [address] CRISTIAN TOMAS MD * CBC and differential (05/03/2021 4:00 AM EDT) [facility] WBC 5.87 4.80 - 10.00 [facility] x1000/ul LABORATORIES RBC 4.05 (L) 4.20 - 5.40 x1Mil/ul [facility] Hemoglobin 10.8 (L) 12.0 - 16.0 g/dl [facility] Hematocrit 34.2 (L) 37.0 - 47.0 % [facility] MCV 84.4 81.0 - 99.0 fL [facility] MCH 26.7 (L) 27.0 - 31.0 pg [facility] MCHC 31.6 (L) 32.2 - 37.0 g/dl [facility] RDW 15.0 (H) 11.5 - 14.5 % [facility] Platelet Count 204 130 - 400 x1000/ul [facility] MPV 10.5 9.4 - 12.4 fL [facility] Neutrophils 50.9 40.0 - 74.0 % [facility] Lymphocytes 37.6 19.0 - 48.0 % [facility] Monocytes 8.2 3.4 - 9.0 % [facility] Eosinophils 2.2 0.0 - 7.0 % [facility] Basophils 0.9 0.0 - 2.0 % [facility] Immature 0.2 0.0 - 0.5 % [facility] Granulocytes LABORATORIES Nucleated RBCs 0.00 0.00 - 0.20 % [facility] Abs. 2.99 1.92 - 8.31 x1000/ul [facility] Neutrophils LABORATORIES Abs. Lymphocyte 2.21 1.20 - 3.70 x1000/ul [facility] Abs. Monocytes 0.48 0.14 - 0.97 x1000/ul [facility] Abs. 0.13 0.00 - 0.76 x1000/ul [facility] Eosinophils LABORATORIES Abs. 0.05 0.00 - 0.22 x1000/ul [facility] Basophils LABORATORIES Abs. Immature 0.01 0.00 - 0.02 x1000/ul [facility] Gran. LABORATORIES Abs. Nucleated 0.00 0.00 - 0.02 x1000/ul [facility] RBCs Comment: LABORATORIES The above 24 analytes were performed by [facility] [address] [place] [address]# [id number],[place] [address] Specimen Whole Blood Performing Organization Address City/State/ZIP Code P jamel Number [facility] [address] [place] [address] CRISTIAN TOMAS MD * Basic metabolic panel (05/03/2021 4:00 AM EDT) [facility] Blood Urea 11 7 - 18 mg/dl [facility] Nitrogen LABORATORIES Creatinine 0.72 0.51 - 0.95 mg/dl [facility] Comment: LABORATORIES N-Acetylcysteine (NAC) and Metamizole have the potential to falsely depress Creatinine results. Baseline values before medication adminstration are recommended. Patients undergoing treatment with phenindione will have falsely depressed results. Patients on phenindione therapy should be tested with an alternative CREA method. Toxic levels of acetaminophen may lead to falsely depressed results for patient samples. Glomerular >90.00 mL/min/1.73m2 [facility] Filtration Rate Comment: LABORATORIES GFR Reference Ranges: [...] Health and the National Kidney [employer]. The [place] method used in calculating this result is traceable to IDMS standards. Glucose 69 (L) 70 - 110 mg/dl [facility] Comment: LABORATORIES Sulfasalazine has the potential to falsely depress Glucose results. Sulfapyridine has the potential to falsely elevate Glucose results. Baseline values before medication administration are recommended. Calcium 8.5 8.5 - 10.1 mg/dl [facility] Sodium 138 136 - 145 mEq/L [facility] Potassium 3.8 3.5 - 5.1 mEq/L [facility] Chloride 110.0 (H) 98.0 - 107.0 mEq/L [facility] Anion Gap 11.3 [facility] Carbon Dioxide 20.5 (L) 21.0 - 32.0 mMol/L [facility] Comment: LABORATORIES The above 10 analytes were performed by [facility] [address] [place] [address] [place], ,[place] [address] Specimen Serum or Plasma Performing Organization Address City/State/ZIP Code P jamel Number [facility] [address] [place] [address] CRISTIAN TOMAS MD * Hemoglobin (05/02/2021 11:59 PM EDT) Hemoglobin 10.6 (L) 12.0 - 16.0 g/dl [facility] Comment: LABORATORIES The above 1 analytes were performed by [facility] [address] [place] [address], ,[place] [address] Specimen Whole Blood Performing Organization Address [facility] P jamel Number [facility] [address] [place] [phone] CRISTIAN TOMAS MD * Hematocrit (05/02/2021 11:59 PM EDT) Hematocrit 34.1 (L) 37.0 - 47.0 % [facility] Comment: LABORATORIES The above 1 analytes were performed by [facility] [address] [place] [address], ,[place] [address] Specimen Whole Blood Performing Organization Address [facility] P jamel Number [facility] [address] [place] [phone] CRISTIAN TOMAS MD * Hemoglobin (05/02/2021 7:00 PM EDT) Pathologist [facility] [place] Hemoglobin 10.5 (L) 12.0 - 16.0 g/dl [facility] Comment: LABORATORIES The above 1 analytes were performed by [facility] [address] [place] [address], ,[place] [address] Specimen Whole Blood Performing Organization Address [facility] P jamel Number [facility] [address] [place] [phone] CRISTIAN TOMAS MD * Hematocrit (05/02/2021 7:00 PM EDT) Pathologist [facility] Hematocrit 33.3 (L) 37.0 - 47.0 % [facility] Comment: LABORATORIES The above 1 analytes were performed by [facility] [address] [place] [address], ,[place] [address] Specimen Whole Blood Performing Organization Address [facility] P jamel Number [facility] [address] [place] [phone] CRISTIAN TOMAS MD * CBC (Hemogram) (05/02/2021 11:52 AM EDT) WBC 5.18 4.80 - 10.00 [facility] x1000/ul LABORATORIES RBC 3.71 (L) 4.20 - 5.40 x1Mil/ul [facility] Hemoglobin 9.8 (L) 12.0 - 16.0 g/dl [facility] Hematocrit 31.1 (L) 37.0 - 47.0 % [facility] MCV 83.8 81.0 - 99.0 fL [facility] MCH 26.4 (L) 27.0 - 31.0 pg [facility] MCHC 31.5 (L) 32.2 - 37.0 g/dl [facility] RDW 15.5 (H) 11.5 - 14.5 % [facility] Platelet Count 213 130 - 400 x1000/ul [facility] MPV 10.0 9.4 - 12.4 fL [facility] Nucleated RBCs 0.00 0.00 - 0.20 % [facility] Abs. Nucleated 0.00 0.00 - 0.02 x1000/ul [facility] RBCs Comment: LABORATORIES The above 12 analytes were performed by [facility] [address] [place] [address], ,[place] [address] Specimen Whole Blood Performing Organization Address [facility] P jamel Number [facility] [address] [place] [address] CRISTIAN TOMAS MD * Vitamin B12 and Folate (05/02/2021 11:52 AM EDT) [facility] EPIC FS Vitamin 324 211 - 911 pg/ml [facility] B-12 LABORATORIES Folate 21.37 5.39 - 9,999.00 [facility] Comment: ng/ml LABORATORIES -----Interpretive Information----- Folate Deficiency: 0.35-3.37 ng/mL. Intermediate: 3.35-5.38 ng/mL Normal: >5.38 ng/mL Patients routinely receiving high-dose biotin therapy may show falsely elevated results. Additional information may be required for diagonsis. The above 2 analytes were performed by [facility] [address] [place] [address], ,[place] [address] Specimen Serum Performing Organization Address [facility] P jamel Number [facility] [address] [place] [address] CRISTIAN TOMAS MD * Ferritin (05/02/2021 11:52 AM EDT) Ferritin 9.8 3.0 - 388.0 ng/ml [facility] Comment: LABORATORIES The above 1 analytes were performed by [facility] [address], ,[place] [address] Specimen Serum or Plasma Performing Organization Address [facility] P jamel Number [facility] [address] [place] [phone] CRISTIAN TOMAS MD * Iron and TIBC (05/02/2021 11:52 AM EDT) Pathologist [facility] [place] Iron Saturation 27 [facility] Iron 97 50 - 170 ug/dl [facility] Comment: LABORATORIES Patients treated with metal-binding drugs (e.g deferoxamine) may have depressed iron values. Total 362 250 - 450 ug/dl [facility] Iron-Binding Comment: LABORATORIES Capacity The above 3 analytes were performed by [facility] [address], ,[place] [address] Specimen Serum or Plasma Performing Organization Address [facility] P jamel Number [facility] [address] [place] [address] CRISTIAN TOMAS MD * Hemoglobin (05/02/2021 11:52 AM EDT) Hemoglobin 9.5 (L) 12.0 - 16.0 g/dl [facility] Comment: LABORATORIES The above 1 analytes were performed by [facility] [address], ,[place] [address] Specimen Whole Blood Performing Organization Address [facility] P jamel Number [facility] [address] [place] [phone] CRISTIAN TOMAS MD * Hematocrit (05/02/2021 11:52 AM EDT) Hematocrit 30.7 (L) 37.0 - 47.0 % [facility] Comment: LABORATORIES The above 1 analytes were performed by [facility] [address], ,[place] [address] Specimen Whole Blood Performing Organization Address [facility] P jamel Number [facility] [address] [place] [phone] CRISTIAN TOMAS MD * Prepare RBC: 1 Units No (05/02/2021 9:31 AM EDT) [facility] 01 - Product ID Red Blood Cells [facility] 01 - [id number] [facility] Unit Number LABORATORIES 01 - Compatible [facility] Cross Match LABORATORIES 01 - Transfused [facility] Status Info LABORATORIES Product Code [id number] [facility] 01 - A Pos [facility] Blood Type LABORATORIES [id number] [facility] Issue LABORATORIES Date/Time [id number] [facility] Specimen LABORATORIES Expiration Date Volume 341 [facility] Comment: LABORATORIES The above 9 analytes were performed by [facility] [address], ,[place] [address] Specimen Blood specimen (specimen) Performing Organization Address [facility] P jamel Number [facility] [address] [place] [phone] CRISTIAN TOMAS MD * Second (2nd) Confirmation Type (05/02/2021 4:37 AM EDT) [facility] 2ND A Positive [facility] CONFIRMATION Comment: LABORATORIES TYPE The above 1 analytes were performed by [facility] [address], ,[place] [address] Specimen Blood Performing Organization Address [facility] P jamel Number [facility] [address] [place] [phone] CRISTIAN TOMAS MD * Hemoglobin (05/02/2021 4:37 AM EDT) [facility] Hemoglobin 9.7 (L) 12.0 - 16.0 g/dl [facility] Comment: LABORATORIES The above 1 analytes were performed by [facility] [address], ,[place] [address] Specimen Whole Blood Performing Organization Address [facility] P jamel Number [facility] [address] [place] [phone] CRISTIAN TOMAS MD * Hematocrit (05/02/2021 4:37 AM EDT) [facility] Hematocrit 31.7 (L) 37.0 - 47.0 % [facility] Comment: LABORATORIES The above 1 analytes were performed by [facility] [address], ,[place] [address] Specimen Whole Blood Performing Organization Address City/State/ZIP Code P jamel Number [facility] [address] [place] [address] CRISTIAN TOMAS MD * CMP (05/02/2021 4:37 AM EDT) AST 14 (L) 15 - 37 IU/L [facility] Comment: LABORATORIES Sulfasalazine and sulfapyridine have the potential to falsely depress Aspartate Aminotransferase results. Baseline values before medication administration are recommended. ALT 56 13 - 56 IU/L [facility] Comment: LABORATORIES Sulfasalazine and sulfapyridine have the potential to falsely depress Alanine Aminotransferase results. Baseline values before medication administration are recommended. Alkaline 110 50 - 136 mIU/ml [facility] Phosphatase LABORATORIES Total Bilirubin 1.40 (H) 0.20 - 1.00 mg/dl [facility] Blood Urea 12 7 - 18 mg/dl [facility] Nitrogen LABORATORIES Creatinine 0.79 0.51 - 0.95 mg/dl [facility] Comment: LABORATORIES N-Acetylcysteine (NAC) and Metamizole have the potential to falsely depress Creatinine results. Baseline values before medication adminstration are recommended. Patients undergoing treatment with phenindione will have falsely depressed results. Patients on phenindione therapy should be tested with an alternative CREA method. Toxic levels of acetaminophen may lead to falsely depressed results for patient samples. Glomerular 81.00 mL/min/1.73m2 [facility] Filtration Rate Comment: LABORATORIES GFR Reference Ranges: [...] Health and the National Kidney Foundation. The [place] method used in calculating this result is traceable to IDMI standards. Glucose 85 70 - 110 mg/dl [facility] Comment: LABORATORIES Sulfasalazine has the potential to falsely depress Glucose results. Sulfapyridine has the potential to falsely elevate Glucose results. Baseline values before medication administration are recommended. Calcium 8.7 8.5 - 10.1 mg/dl [facility]IES Total Protein 7.1 6.4 - 8.2 g/dl [facility] Albumin 3.1 (L) 3.4 - 5.0 g/dl [facility] Sodium 139 136 - 145 mEq/L [facility] Potassium 3.6 3.5 - 5.1 mEq/L [facility] Chloride 112.0 (H) 98.0 - 107.0 mEq/L [facility] Anion Gap 6.6 [facility] Carbon Dioxide 24.0 21.0 - 32.0 mMol/L [facility] Comment: LABORATORIES The above 16 analytes were performed by [facility] [address], ,[place] [address] Specimen Serum or Plasma Performing Organization Address [facility] P jamel Number [facility] [address] [place] [phone] CRISTIAN TOMAS MD * Type and screen (05/02/2021 4:37 AM EDT) ABO-Rh Typing A Positive [facility]IES Antibody Screen Negative [facility]IES Specimen [id number] [facility] Expires LABORATORIES Date/Time PATIENT HISTORY Pt Hx Checked [facility] Comment: LABORATORIES The above 4 analytes were performed by [facility] [address], ,[place] [address] Specimen Blood Performing Organization Address [facility] P jamel Number [facility]IES [address] [place] [phone] CRISTIAN TOMAS MD documented in this encounter Visit Diagnoses Diagnosis Upper GI bleed - Primary Unspecified, hemorrhage of gastrointest inal tract Hematemesis Melena Blood in stool Acute blood loss anemia Acute posthemorrhagic anemia documented in this encounter Administered Medications Action Date Dose Rate Site Medication Order MAR Action acetaminophen (TYLENOL) 160 mg/5 mL solution 640 mg 640 mg (rounded from 650 mg), oral, Every 4 hours PRN, mild pain, Starting on Wed05/02/21 at 0058, Give oral liqui d if patient prefers or per feeding tube if present. If inadequate response within 60 minutes, proceed to next-line agent for same PRN reason or contact provider if no further options ordered. acetaminophen (TYLENOL) suppository 650 mg 650 mg, rectal, Every 4 hours PRN, mild pain, Starting on Wed05/02/21 at 0058, Give MO if unable to administer by mout h or feeding tube. If inadequate response within 60 minutes, proceed to next-line agent for same PRN reason or contact provider if no further options ordered. 05/02/2021 7:34 AM EDT 650 mg acetaminophen (TYLENOL) tablet 650 mg Given 650 mg, oral, Every 4 hours PRN, mild pain, Starting on Wed05/02/21 at 0058, If inadequate response within 60 minutes, proceed to next-line agent for same PRN reason or contact provider if no further options ordered. 650 mg Given 05/02/2021 1:24 AM EDT 05/04/2021 11:34 AM EDT 2 mg ARIPiprazole (ABILIFY) tablet 2 mg Given 2 mg, oral, Daily, First dose on Wed05/02/21 at 0900 2 mg Given 05/03/2021 8:25 AM EDT 2 mg Given 05/02/2021 9:09 AM EDT 05/04/2021 7:34 AM EDT 125 mcg levothyroxine (SYNTHROID) tablet 125 mcg Given 125 mcg, oral, Every morning before breakfast, First dose on Wed05/02/21 at 0730 125 mcg Given 05/03/2021 7:28 AM EDT 125 mcg Given 05/02/2021 7:33 AM EDT 05/03/2021 9:08 PM EDT 15 mg mirtazapine (REMERON) tablet 15 mg Given 15 mg, oral, Nightly, First dose on Wed05/02/21 at 0030 15 mg Given 05/02/2021 8:13 PM EDT 15 mg Given 05/02/2021 1:23 AM EDT 05/04/2021 11:34 AM EDT 200 mcg miSOPROStoL (CYTOTEC) tablet 200 mcg Given 200 mcg, oral, 4 times daily, First dos e on 05/03/21 at 1200, [facility] - follow Safe Handling Precautions when administering ; Refer to Pharmacy Resources on hospital intranet page for additional info. 200 mcg Given 05/04/2021 7:36 AM EDT 200 mcg Given 05/03/2021 9:08 PM EDT 05/04/2021 7:06 AM EDT 1 mg morphine injection 1 mg Given 1 mg, intravenous, Every 4 hours PRN, severe pain, Starting on Wed05/02/21 at 1100 1 mg Given 05/03/2021 11:41 PM EDT 1 mg Given 05/03/2021 7:35 PM EDT 05/04/2021 11:34 AM EDT 1 tablet multivitamin (THERAGRAN) tablet 1 tablet Given 1 tablet, oral, Daily, First dose on Fr i 05/02/21 at 0900 1 tablet Given 05/03/2021 8:25 AM EDT 1 tablet Given 05/02/2021 9:09 AM EDT ondansetron (ZOFRAN) injection 4 mg 4 mg, intravenous, Every 6 hours PRN, nausea, vomiting, Starting on Wed05/02/21 at 0059, 1st Line. Give IV if patient is unable to take orally. If inadequate response within 60 minutes, proceed to next-line agent or contact provider if no further options ordered. 05/03/2021 5:28 PM EDT 4 mg ondansetron (ZOFRAN-ODT) dispersible Given tablet 4 mg 4 mg, oral, Every 6 hours PRN, nausea, vomiting, Starting on Wed05/02/21 at 0059, 1st Line. If inadequate response within 60 minutes, proceed to next-line agent or contact provider if no further options ordered. Patient should allow tablet to dissolve on tongue. Do not remove from blister pack until just before administering. 05/04/2021 12:56 AM EDT 8 mg/hr 10 mL/hr pantoprazole (PROTONIX) 80 mg in sodium New Bag chloride 0.9% 100 mL (0.8 mg/mL) infusion 8 mg/hr (10 mL/hr), intravenous, at 10 mL/hr, Continuous, Starting on Wed05/02/21 at 0100, refrigerate until use 8 mg/hr 10 mL/hr New Bag 05/03/2021 3:43 PM EDT 8 mg/hr 10 mL/hr New Bag 05/03/2021 5:15 AM EDT 05/02/2021 1:24 AM EDT 1 mg prazosin (MINIPRESS) capsule 1 mg Given 1 mg, oral, Nightly, First dose on Wed05/02/21 at 0030 05/04/2021 4:09 PM EDT 1 g sucralfate (CARAFATE) tablet 1 g Given 1 g, oral, 4 times daily before meals and nightly, First dose on Wed05/02/21 at 0730 1 g Given 05/04/2021 11:34 AM EDT 1 g Given 05/04/2021 7:34 AM EDT 05/04/2021 11:34 AM EDT 150 mg venlafaxine XR (EFFEXOR-XR) 24 hr Given capsule 150 mg 150 mg, oral, Daily, First dose on Wed05/02/21 at 0900, Capsule may be swallowed whole, or may be opened and its contents sprinkled on applesauce if consumed immediately without chewing. D o not crush or chew. 150 mg Given 05/03/2021 8:25 AM EDT 150 mg Given 05/02/2021 9:09 AM EDT Action Date Dose Rate Site Medication Order MAR Action 05/02/2021 7:33 AM EDT 1 mg Right Up per Abdomen morphine injection 1 mg Given 1 mg, subcutaneous, Every 4 hours PRN, severe pain, Starting on Wed05/02/21 at 0059 1 mg Left Lower Abdomen Given 05/02/2021 1:25 AM EDT 05/02/2021 2:15 AM EDT 80 mg 200 mL/hr pantoprazole (PROTONIX) 80 mg in sodium New Bag chloride 0.9% 100 mL IVPB 80 mg, intravenous, at 200 mL/hr, Administer over 30 Minutes, Once, On Fr i 05/02/21 at 0100, 1 dose 05/02/2021 9:38 AM EDT 1,000 mL sodium chloride 0.9 % bolus 1,000 mL New Bag 1,000 mL, intravenous, Once, On Wed05/02/21 at 0945, 1 dose documented in this encounter Active and Recently Administered Medications Times are shown in EDT. 05/03/2021 05/04/2021 Medication Order 05/02/2021 0825 (Given - Provider: Ivette Choudhary RN) 1134 (Given - Provider: Julia Lang RN) ARIPiprazole (ABILIFY) tablet 2 mg 0909 (Given - 2 mg, oral, Daily, First dose on Wed Provider: Ivette 05/02/21 at 0900 GELY Choudhary) 0728 (Given - Provider: Ivette Choudhary RN) 0734 (Given - Provider: Julia Lang RN) levothyroxine (SYNTHROID) tablet 125 mcg 0733 (Given - 125 mcg, oral, Every morning before Provider: Ivette hurt, First dose on Wed05/02/21 at [facility], R N) 0730 2108 (Given - Provider: Va jarvis RN) 2100 (Due) mirtazapine (REMERON) tablet 15 mg 0123 (Given - 15 mg, oral, Nightly, First dose on Fri Provider: Madelin fish 05/02/21 at 0030 GELY Wang)2012 (Given - Provider: Va Ruiz RN) 1132 (Given - Provider: Rama Lopez RN)1700 (Given - Provider: Rama Lopez RN)2108 (Given - Provider: Va Ruiz RN) 0736 (Given - Provider: Julia Lang RN)1134 (Given - Provider: Julia Lang RN)1800 (Due)2100 (Due) miSOPROStoL (CYTOTEC) tablet 200 mcg 200 mcg, oral, 4 times daily, First dos e on 05/03/21 at 1200, [facility] - follow Safe Handling Precautions when administering ; Refer to Pharmacy Resources on hospital intranet page for additional info. 0825 (Given - Provider: Ivette Choudhary RN) 1134 (Given - Provider: Julia Lang RN) multivitamin (THERAGRAN) tablet 1 tablet 0909 (Given - 1 tablet, oral, Daily, First dose on Fri Provider: Nell lucas 05/02/21 at 0900 GELY Choudhary) pantoprazole (PROTONIX) 80 mg in sodium 0215 (New Ba g - chloride 0.9% 100 mL IVPB (COMPLETED) Provider: Quintin ael 80 mg, intravenous, at 200 mL/hr, GELY Wang) Administer over 30 Minutes, Once, On Fr i 05/02/21 at 0100, 1 dose 2100 (Not Given - Provider: Va mills RN - Reason: Other) 2100 (Due) prazosin (MINIPRESS) capsule 1 mg 0124 (Given - 1 mg, oral, Nightly, First dose on Wed Provider: Ralph chawla 05/02/21 at 0030 GELY Wang)2012 (Not Given - Provider: Va Ruiz RN - Reason: Other - Comment: BP 102/62) sodium chloride 0.9 % bolus 1,000 mL 0938 (New Bag - (COMPLETED) Provider: Audrey 1,000 mL, intravenous, Once, On Wed GELY Pires) 05/02/21 at 0945, 1 dose 0728 (Given - Provider: Ivette Choudhary RN)1036 (Given - Provider: Ivette Choudhary RN)1541 (Given - Provider: Rama Lopez RN)2108 (Given - Provider: Va Ruiz RN) 0734 (Given - Provider: Julia Lang, GELY)1134 (Given - Provider: Julia Lang, GELY)1609 (Given - Provider: Julia Lang, GELY)2100 (Due) sucralfate (CARAFATE) tablet 1 g 0733 (Given - 1 g, oral, 4 times daily before meals Provider: Deandre ramirez and nightly, First dose on Wed05/02/21 GELY Choudhary )1124 at 0730 (Given - Provider: Audrey Pires RN)1634 (Given - Provider: Ivette Choudhary RN)2012 (Given - Provider: Va Ruiz RN) 0825 (Given - Provider: Ivette Choudhary RN) 1134 (Given - Provider: Julia Lang RN) venlafaxine XR (EFFEXOR-XR) 24 hr 0909 (Given - capsule 150 mg Provider: Ivette 150 mg, oral, Daily, First dose on Wed GELY Choudhary ) 05/02/21 at 0900, Capsule may be swallowed whole, or may be opened and its contents sprinkled on applesauce if consumed immediately without chewing. D o not crush or chew. 05/03/2021 05/04/2021 Medication Order 05/02/2021 0515 (New Bag - Provider: Va hand RN)1543 (New Bag - Provider: Rama Lopez RN) 0056 (New Bag - Provider: Va hand RN) pantoprazole (PROTONIX) 80 mg in sodium 0300 (New Ba g - chloride 0.9% 100 mL (0.8 mg/mL) Provider: Duglas Wang RN)1318 8 mg/hr (10 mL/hr), intravenous, at 10 (New Bag - Pr ovider: mL/hr, Continuous, Starting on Wed [facility], 05/02/21 at 0100, refrigerate until use RN)2019 (New Bag - Provider: Va Ruiz RN) 05/03/2021 05/04/2021 Medication Order 05/02/2021 acetaminophen (TYLENOL) 160 mg/5 mL 0124 (See solution 640 mg(Linked Group 1) Alternative - 640 mg (rounded from 650 mg), oral, Provider: Gigi dee Every 4 hours PRN, mild pain, Starting GELY Wang)0 734 on Wed05/02/21 at 0058, Give oral liquid (See Altern ative - if patient prefers or per feeding tube Provider: Khalida joyce if present. If inadequate response GELY Choudhary) within 60 minutes, proceed to next-line agent for same PRN reason or contact provider if no further options ordered. acetaminophen (TYLENOL) suppository 650 0124 (See mg(Linked Group 1) Alternative - 650 mg, rectal, Every 4 hours PRN, mild Provider: Madelin fish pain, Starting on Wed05/02/21 at 0058, GELY Wang)0 734 Give MO if unable to administer by mouth (See Altern ative - or feeding tube. If inadequate response Provider: Jorge L aguero within 60 minutes, proceed to next-line Nikki Choudhary) agent for same PRN reason or contact provider if no further options ordered. acetaminophen (TYLENOL) tablet 650 0124 (Given - mg(Linked Group 1) Provider: Duglas 650 mg, oral, Every 4 hours PRN, mild GELY Wang)07 34 pain, Starting on Wed05/02/21 at 0058, (Given - Prov ider: If inadequate response within 60 Ivette Choudhary RN ) minutes, proceed to next-line agent for same PRN reason or contact provider if no further options ordered. morphine injection 1 mg (CANCELED) 0125 (Given - 1 mg, subcutaneous, Every 4 hours PRN, Provider: Ralph chawla severe pain, Starting on Wed05/02/21 at GELY Wang) 0733 0059 (Given - Provider: Ivette Choudhary RN) 0327 (Given - Provider: Va jarvis RN)0728 (Given - Provider: Ivette Choudhary RN)1130 (Given - Provider: Rama Lopez RN)1541 (Given - Provider: Rama Lopez RN)1935 (Given - Provider: Va Ruiz RN)2341 (Given - Provider: Va Ruiz RN) 0706 (Given - Provider: Va jarvis RN) morphine injection 1 mg 1455 (Given - 1 mg, intravenous, Every 4 hours PRN, Provider: Deandre ramirez severe pain, Starting on Wed05/02/21 at Funmi, Nikki N)1942 1100 (Given - Provider: Va Ruiz RN) 1728 (See Alternative - Provider: Rama Lopez RN) ondansetron (ZOFRAN) injection 4 mg(Linked Group 2) 4 mg, intravenous, Every 6 hours PRN, nausea, vomiting, Starting on Wed05/02/21 at 0059, 1st Line. Give IV if patient is unable to take orally. If inadequate response within 60 minutes, proceed to next-line agent or contact provider if no further options ordered. 1728 (Given - Provider: Rama Lopez RN) ondansetron (ZOFRAN-ODT) dispersible tablet 4 mg(Linked Group 2) 4 mg, oral, Every 6 hours PRN, nausea, vomiting, Starting on Wed05/02/21 at 0059, 1st Line. If inadequate response within 60 minutes, proceed to next-line agent or contact provider if no further options ordered. Patient should allow tablet to dissolve on tongue. Do not remove from blister pack until just before administering. tiZANidine (ZANAFLEX) tablet 4 mg 0059 (Not Given - 4 mg, oral, Every 6 hours PRN, muscle Provider: Quintin man spasms, Starting on Wed05/02/21 at 0027 GELY Wang - Reason: Other - Comment: removed by mistake, returned) Order Group 1: acetaminophen (TYLENOL) tablet 650 mgJu mp to med 650 mg, oral, Every 4 hours PRN, mild p ain, Starting on Wed05/02/21 at 0058
If inadequate response within 60 minutes, proceed to next-line agent for same PRN reason or contact provider if no further options ordered.
Or acetaminophen (TYLENOL) 160 mg/5 mL fernanda ution 640 mgJump to med 640 mg (rounded from 650 mg), oral, Ayla ry 4 hours PRN, mild pain, Starting on Wed05/02/21 at 0058
Give oral liquid if patient pre fers or per feeding tube if present. If inadequate response within 60 minutes, proceed to next-line agent for same PRN reason or contact provider if no further options ordered.
Or acetaminophen (TYLENOL) suppository 650 mgJump to med 650 mg, rectal, Every 4 hours PRN, mild pain, Starting on Wed05/02/21 at 0058
Give MO if unable to administer by mouth or feeding tube. If inadequate response within 60 minutes, proceed to next-line agent for same PRN reason or contact provider if no further options ordered.
Group 2: ondansetron (ZOFRAN-ODT) dispersible ta blet 4 mgJump to med 4 mg, oral, Every 6 hours PRN, nausea, vomiting, Starting on Wed05/02/21 at 0059
1st Line. If inadequate response within 60 minutes, proceed to next-line agent or contact provider if no further options ordered. Patient should a llow tablet to dissolve on tongue. Do not remove from blister pack until just before administering.<b r> Or ondansetron (ZOFRAN) injection 4 mgJump to med 4 mg, intravenous, Every 6 hours PRN, n ausea, vomiting, Starting on Wed05/02/21 at 0059
1st Line. Give IV if patient is unable to take or ally. If inadequate response within 60 minutes, proceed to next-line agent or contact provider if no further options ordered.
documented in this encounter Insurance Type Payer Benefit Subscriber ID Effective Phone Address Plan / Dates Group Medicare MEDICARE MEDICARE [id number] 2012-P PART A & B resent MEDICAID [place] MEDICAID [id number] 2021-P [phone] resent documented as of this encounter Advance Directives Date Inactivated Comments Code Status Date Activated Full Code 05/02/2021 1:00 AM 04/28/2021 8:06 PM Full Code 04/25/2021 2:58 PM 03/27/2021 6:16 PM Please verify with patient Full Code 03/23/2021 5:48 PM
--- OUTSIDE RECORDS SUMMARY | 2021-05-25 21:54 | CCD ---
Author Organization Unknown Address [address] [place] [address] Phone [phone] Care Team Providers Care Apartment Assistant Manager Name Role Phone SAJAN DUVAL PA-C 3 [phone] Allergies Code Code System Name Reaction Severity Status Onset Amitriptyline Hcl Hallucinations Severe Active 09/11/19 15 674263 RxNorm Maxalt Other Moderate to Severe Active 09/11/19 15 704 RxNorm Amitriptyline Hallucinations Severe Deactivated Medications Name Status Start Date Stop Date biotin 10 mg tablet Take 1 tablet every day by oral route. Completed 03/18/2021 Carafate 1 gram tablet Take 1 tablet 4 times a day by oral route. Active Not available doxepin 25 mg capsule Take 1 capsule every day by oral route. Active Not available Hair, Skin and Nails Advanced Completed levothyroxine 25 mcg tablet Take 1 tablet every day by oral route. Active Not available lithium carbonate 300 mg capsule Take 1 capsule 3 times a day by oral route. Completed 03/18/2021 multivitamin 1 TABLET ONCE DAILY Active Not available One Touch II Test strips Completed 021 OneTouch Delica Lancets Completed 03/18/20 21 pantoprazole 40 mg tablet,delayed releas e Take 1 tablet every day by oral route. Active Not available prazosin 1 mg capsule Take 1 capsule 3 times a day by oral route. Active Not available Remeron 15 mg tablet Take 1 tablet every day by oral route. Completed 03/18/2021 Seroquel 25 mg tablet Take 1 tablet twice a day by oral route. Completed 03/18/2021 Suboxone 8 mg-[address] 1 film every day by sublingual route. Active Not available Zanaflex 4 mg tablet Take 1 tablet 3 times a day by oral route as needed. Active Not available Zantac 150 mg tablet Take 1 tablet twice a day by oral route. Active Not available Problems Name Status Onset Date Source Spondylosis without Myelopathy Active 09/11/2014 H istory Displacement of Lumbar Intervertebral Disc without Myelopathy Ac tive 09/11/2014 History Degeneration of Lumbosacral Intervertebral Disc Active 09/11/2014 History Post-laminectomy Syndrome Active 09/11/2014 Histor y Lumbosacral Radiculopathy Active 09/11/2014 Histor y Inflammation of Sacroiliac Joint Active 10/23/2014 History Fibromyalgia Active 10/23/2014 History Procedures Date Name Performed by 08/09/2019 Esophagogastroduodenoscopy Notes: with Colonoscopy Information not available 01/07/2019 Esophagogastroduodenoscopy Information n ot available 09/09/2018 Esophagogastroduodenoscopy Information n ot available 06/09/2016 Perforated Peptic Ulcer Closure Informat ion not available 08/09/2012 Appendectomy Information not avai lable 08/09/2010 Gastric Bypass for Obesity Notes: x2- Repair 2015 Information not available 08/09/2009 Lumbar Spinal Fusion Notes: x 2 ; L4 -S1 by DR louise Information not available 08/09/2006 Hysterectomy Information not avai lable 08/09/2002 Delivery Notes: x2 2004 Information not available 08/09/1998 Cholecystectomy Information not avai lable 03/18/2021 MRI, Lumbar Spine, W/wo Contrast [facility] Radiology Dept [address] [place], [place] [id number] (Work Place) Results Lab Results Date Name Specimen Result Interpretation Description Value Range Status Address 04/02/2021 [facility] Pdf Report NOS No observation recorded. [facility]: [address] [facility] 04/02/2021 SARS CoV 2 RNA (COVID-19), QL, ground crew chief-PCR, Respirat ory Specimen NOS Normal Sars-cov-2 negative negative Final [facility]: [address] [facility] [place] Past Encounters 04/07/2021 Lumbar Post-laminectomy Syndrome; Lumbar Radiculopathy; Degeneration of Lumbar Intervertebral Disc; Degeneration of Lumbosacral Intervertebral Disc; Displacement of Lumbar Intervertebral Disc without Myelopathy; Intervertebral Disc Disorder; Spondylosis without Myelopathy; Lumbosacral Spondylosis without Myelopathy; Myofascial Pain David Willard MD: [address], [place] [address], Ph. 04/02/2021 Pre-surgery Testing; Viral Screening David Willard MD: [address], [address], [place] [address], Ph. [phone] 03/18/2021 Lumbar Post-laminectomy Syndrome; Lumbar Radiculopathy; Degeneration of Lumbar Intervertebral Disc; Degeneration of Lumbosacral Intervertebral Disc; Displacement of Lumbar Intervertebral Disc without Myelopathy; Intervertebral Disc Disorder; Spondylosis without Myelopathy; Lumbosacral Spondylosis without Myelopathy; Myofascial Pain David Willard MD: [address], [place] [address], Ph. Social History Tobacco Smoking Status Heavy Tobacco Smoker (1 pack per a da y) Vaccine List None recorded. Plan of Care Reminders Provider Appointments None recorded. Lab None recorded. Referral None recorded. Procedures None recorded. Surgeries None recorded. Imaging None recorded. Vitals 03/18/2021 11:00AM NEW PATIENT Height Weight BMI Blood Pressure 5 ft 9 in 179.2 lbs 26.5 kg/m2 97/59 mm[Hg] 11/19/2014 Blood Pressure 97/60 mm[Hg] 10/25/2014 Blood Pressure 95/59 mm[Hg] 10/23/2014 Blood Pressure 111/65 mm[Hg] 10/11/2014 Blood Pressure 104/65 mm[Hg] 09/11/2014 Height Weight BMI Blood Pressure 5 ft 8 in 135 lbs 20.60 kg/m2 110/65 mm[Hg]
--- OUTSIDE RECORDS SUMMARY | 2021-05-25 21:54 | CCD ---
Author Author [facility] Organization [facility] Address Unknown Phone Unavailable Care Team Providers Care Poem Writer Name Role Phone Abida Gomez Unavailable PROBLEMS Type Condition ICD9-CM Code [id number] Code Onset Dates Condition S tatus W/U Status Risk SNOMED Code Notes Problem Hypothyroidism, unspecified type E03.9 Active conf irmed 27642039 Problem Migraine without status migr ainosus, not intractable, unspecified migraine type G43.909 Active confirmed 64535581 Problem Bipolar 1 disorder F31.9 Active confirmed 3 85653760 Problem Bleeding ulcer K27.4 Active confirmed 30253 000 Problem Crohn's disease with complic ation, unspecified gastrointestinal tract location K50.919 Active confirmed 98296098 Problem 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 Active confirmed 606912755 Problem History of gastrointestinal ulcer Z87.19 Active confirmed 308125222 Problem Cocaine abuse in remission F14.11 Active confirmed 776469119 Problem History of ulcer disease Z87.898 Active confirmed 315653381 Problem Normocytic hypochromic anemia D50.9 Active confirm ed 59906041 Problem Attention deficit hyperactivity disorder (ADHD), unspecified ADHD type F90.9 Active confirmed 704495107 Problem Schizoaffective disorder, unspecified type F25.9 Active confirmed 69155573 RULE OUT Problem Gastroesophageal reflux disease without esophagitis K21.9 Active confirmed 508914636 Problem Insomnia, unspecified type G47.00 Active confirmed 289351909 Problem Post-traumatic stress disorder, unspecified F43.10 Active confirmed 08576058 Problem BOOKER (generalized anxiety disorder) F41.1 Activ e confirmed 73171327 Problem Anxiety F41.9 Active confirmed 23408147 Problem Depression, unspecified depression type F32.9 Active confirmed 92299204 Problem Tobacco dependence F17.200 Active confirmed 35103613 Problem Other chronic pain G89.29 Active confirmed 8 8943709 Problem Hypoglycemia E16.2 Active confirmed 5324018 03 ALLERGIES Allergen (clinical drug ingredient) Drug/Non Drug Allergy do cumented on EMR Reaction Allergy Type Onset Date Status NSAIDS Unknown Non Drug Allergy Active rizatriptan Maxalt([facility] Code:[address]-28) anaphylaxis Drug Allergy Active Bees Anaphylaxis-Bakers Yeast Non Drug Allergy Active amitriptyline Amitriptyline HCl([facility] Code:[address]-35) Unknown Dr hernandez Allergy Active ENCOUNTERS from 1982 to 2021-04-15 Encounter Location Date Provider Diagnosis [address] [address] Apr, Abida Jason IMMUNIZATIONS No Information SOCIAL HISTORY [...] Notes Start Da te End Date Status Biotin 10 MG 1 tablet Orally Once a day for 30 day(s) Active Multivitamin Adult - 1 tablet Orally Once a day for 30 day(s) Active Hair Skin & Nails Gummies 1250-7.5-7.5 MCG-MG-UNT as directed Orally Active Levothyroxine Sodium 50 MCG 1 tablet in the morning on an empty stomach Orally Once a day for 30 day(s) Jan, Active Rexulti 1 MG 1 tablet Orally Once a day for 30 day(s) A 2020 Active One Touch Delica Lancets as directed; E11.9 QD and prn for 90 days Active ONE TOUCH TEST STRIPS as directed; E11.9 QD AND PRN for 90 days Active Remeron 15 MG TAKE ONE TABLET BY MOUTH BERYL RY EVENING orally once a day for 30 days Not-Taking [place] Carbonate 300 MG 1 capsule Orally Twice a day for 30 day(s) Stopped this Feb, Not-Taking SEROquel 25 MG 1 tablet Orally twice daily as needed for 60 days Not-Taking Carafate 1 GM 1 tablet on an empty stomach Orally four times a day as needed for 30 days Active Suboxone 8-2 MG 1 film under the tongue and allow to dissolve Sublingual Once a day hasn't taken in two days Active Doxepin HCl 25 MG 1 capsule at bedtime Orally qhs Jul, Not-Taking Pantoprazole Sodium 40 MG 1 tablet Orally Twice a day for 30 day (s) Nov, Active EpiPen 2-Sav 0.3 MG/0.3ML as directed Injection once for 2 days Jan, Active One touch Ultra mini meter as dir; E11.9 up to 2x per day as needed for low blood sugar symptoms for 30 days Active Zantac 150 MG 1 tablet at bedtime Orally Once a day for 30 day (s) Nov, Active Prazosin HCl 1 MG 1 capsule at bedtime Orally Once a day for 30 day(s) Feb, Active PROCEDURES No Information RESULTS No Results REASON FOR VISIT er follow up MEDICAL (GENERAL) HISTORY Type Description Date Medical History Obesity s/p gastric bypass Medical History Anxiety/Depression/PTSD Medical History Bipolar/ADHD Medical History Stomach ulcers Medical History ovarian cyst left side Medical History Crohn's Medical History Kaitlyn's Medical History Paranoia Medical History hysterectomy Medical History iron deficient Medical History Kaitlyn's disease Medical History Allergy to bee sting Surgical History L2-S1 spinal fusion-[place] 2009 Surgical History x 2 Surgical History gastric bypass 2010 Surgical History peptic ulcer perforation repair- Dr. Sinha 06/2016 Surgical History EGD 02/2017 Surgical History Gastric bypass revision/ulcer repair-Dr. Sullivan 03/14/2017 Surgical History Hysterectomy 2007 Surgical History colonoscopy-[facility] Surgical History EGD-[facility] 09/2018 Surgical History EGD-[facility] 01/2019 Surgical History EGD and C-scope 2019 Hospitalization History surgical purposes Hospitalization History upper GI bleed/severe stomach pain Hospitalization History upper GI bleed 02/2017 Hospitalization History upper gi bleed 11/2017 Hospitalization History abdominal pain x 8 days-[facility] 10/2018 Goals Section No Information Health Concerns No Information MEDICAL EQUIPMENT No Information MENTAL STATUS No Information FUNCTIONAL STATUS No Information ASSESSMENTS No Information PLAN OF TREATMENT Next Appt Details Provider Name:Ragini Watts, 2021-04-22 03:00:00 PM, [address] [place] [address], [phone], Provider Name:Anna Marie Silverman, 2021-05-21 1 0:00:00 AM, [address] [place] [address], [phone], Insurance Providers Payer Name Payer Address Payer Phone Insured Name Patient Relati onship to Insured Coverage Start Date Coverage End Date [facility] [employer] [address] [facility] [address] Ada Ayoub [facility] - MEDICARE [place] [address] [facility] [id number] Ada Ayoub [facility] - MEDICAID ANCILLARY [facility] APG BILL [facility] [address] [facility] [id number] Ada Ayoub
--- OUTSIDE RECORDS SUMMARY | 2021-05-25 21:54 | CCD ---
Author Author [facility] Organization [facility] Address Unknown Phone Unavailable Care Team Providers Care Residential Green Building Designer Name Role Phone Abida Gomez Unavailable PROBLEMS Type Condition ICD9-CM Code [id number] Code Onset Dates Condition S tatus W/U Status Risk SNOMED Code Notes Problem Hypothyroidism, unspecified type E03.9 Active conf irmed 90880384 Problem Migraine without status migr ainosus, not intractable, unspecified migraine type G43.909 Active confirmed 71392753 Problem Bipolar 1 disorder F31.9 Active confirmed 3 61408992 Problem Bleeding ulcer K27.4 Active confirmed 39485 000 Problem Crohn's disease with complic ation, unspecified gastrointestinal tract location K50.919 Active confirmed 52727375 Problem 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 Active confirmed 583115834 Problem History of gastrointestinal ulcer Z87.19 Active confirmed 310276299 Problem Cocaine abuse in remission F14.11 Active confirmed 689266769 Problem History of ulcer disease Z87.898 Active confirmed 339020941 Problem Normocytic hypochromic anemia D50.9 Active confirm ed 77405954 Problem Attention deficit hyperactivity disorder (ADHD), unspecified ADHD type F90.9 Active confirmed 251265813 Problem Schizoaffective disorder, unspecified type F25.9 Active confirmed 71359006 RULE OUT Problem Gastroesophageal reflux disease without esophagitis K21.9 Active confirmed 322575149 Problem Insomnia, unspecified type G47.00 Active confirmed 879302759 Problem Post-traumatic stress disorder, unspecified F43.10 Active confirmed 25874077 Problem BOOKER (generalized anxiety disorder) F41.1 Activ e confirmed 39234767 Problem Anxiety F41.9 Active confirmed 31482877 Problem Depression, unspecified depression type F32.9 Active confirmed 15331903 Problem Tobacco dependence F17.200 Active confirmed 40223663 Problem Other chronic pain G89.29 Active confirmed 8 4696179 Problem Hypoglycemia E16.2 Active confirmed 1551826 03 ALLERGIES Allergen (clinical drug ingredient) Drug/Non Drug Allergy do cumented on EMR Reaction Allergy Type Onset Date Status NSAIDS Unknown Non Drug Allergy Active rizatriptan Maxalt([facility] Code:[address]-94) anaphylaxis Drug Allergy Active Bees Anaphylaxis-Bakers Yeast Non Drug Allergy Active amitriptyline Amitriptyline HCl([facility] Code:[address]-51) Unknown Dr hernandez Allergy Active ENCOUNTERS from 1982 to 2021-05-05 Encounter Location Date Provider Diagnosis [address] [address] Apr, Abida Gomez Hypothyroidism, unspecified type E03.9 and Bipolar 1 disorder F31.9 IMMUNIZATIONS No Information SOCIAL HISTORY Tobacco Use: [...] QD AND PRN for 90 days Active [place] Carbonate 300 MG 1 capsule Orally Twice [...] Information RESULTS No Results REASON FOR VISIT Refills MEDICAL (GENERAL) HISTORY Type Description Date Medical History Obesity s/p gastric bypass Medical History Anxiety/Depression/PTSD Medical History Bipolar/ADHD Medical History Stomach ulcers Medical History ovarian cyst left side Medical History Crohn's Medical History Kaitlyn's Medical History [place] Medical History hysterectomy Medical History iron deficient Medical History Kaitlyn's disease Medical History Allergy to bee sting Surgical History L2-S1 spinal fusion-[place] 2009 Surgical History x 2 Surgical History gastric bypass 2011 Surgical History peptic ulcer perforation repair- Dr. Sinha 06/2016 Surgical History EGD 02/2017 Surgical History Gastric bypass revision/ulcer repair-Dr. Sullivan 03/14/2017 Surgical History Hysterectomy 2007 Surgical [place] [place] 09/2018 Surgical History EGD-[facility] 01/2019 Surgical History EGD and C-scope 2019 Hospitalization History surgical purposes Hospitalization History upper GI bleed/severe stomach pain Hospitalization History upper GI bleed 02/2017 Hospitalization History upper gi bleed 11/2017 Hospitalization History abdominal pain x 8 days-[facility] 10/2018 Hospitalization History Upper GI bleed [facility] 04/28 21 Goals Section No Information Health Concerns No Information MEDICAL EQUIPMENT No Information MENTAL STATUS No Information FUNCTIONAL STATUS No Information ASSESSMENTS Encounter Date Diagnosis Assessment Notes Treatment Notes Treatm ent Clinical Notes Apr, Hypothyroidism, unspecified type (ICD-10 - E03.9 ) Apr, Bipolar 1 disorder (ICD-10 - F31.9) PLAN OF TREATMENT Medication Medication Name Sig Start Date Stop Date Rexulti 2 MG 1 tablet Orally Once a day for 30 days Mar, 2 021 Next Appt Details Provider Name:Abida Gomez, 8 11:00:00 AM, [address] [place] [address], [phone], Provider Name:Ragini Watts 2021-05-20 01:00:00 PM, [address] [place] [address], [phone], Provider Name:Anna Marie Silvermna 2021-05-21 1 0:00:00 AM, [address] [place] [address], [phone], Provider Name:Anna Marie Silverman 2021-06-02 0 2:00:00 PM, [address] [place] [address], [phone], Insurance Providers Payer Name Payer Address Payer Phone Insured Name Patient Relati onship to Insured Coverage Start Date Coverage End Date [facility] - MEDICAID ANCILLARY [facility] APG BILL R [facility]ER [facility]P [address] [facility] [id number] Ada Ayoub MCRA - MEDICARE [place] [address] [facility] [id number] [phone] Ada Ayoub [employer] - [employer] MED[employer]ARE DIVISION [address] [facility] 139 Ada Ayoub self
--- OUTSIDE RECORDS SUMMARY | 2021-05-25 21:54 | CCD ---
Author Author [facility] Organization [facility] Address Unknown Phone Unavailable Care Team Providers Care Technical Spec Name Role Phone Abida Gomez Unavailable PROBLEMS Type Condition ICD9-CM Code [id number] Code Onset Dates Condition S tatus W/U Status Risk SNOMED Code Notes Problem Hypothyroidism, unspecified type E03.9 Active conf irmed 01700123 Problem Migraine without status migr ainosus, not intractable, unspecified migraine type G43.909 Active confirmed 49157362 Problem Bipolar 1 disorder F31.9 Active confirmed 3 03054507 Problem Bleeding ulcer K27.4 Active confirmed 18336 000 Problem Crohn's disease with complic ation, unspecified gastrointestinal tract location K50.919 Active confirmed 04780974 Problem 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 Active confirmed 343040191 Problem History of gastrointestinal ulcer Z87.19 Active confirmed 838342528 Problem Cocaine abuse in remission F14.11 Active confirmed 643934144 Problem History of ulcer disease Z87.898 Active confirmed 339254306 Problem Normocytic hypochromic anemia D50.9 Active confirm ed 80410677 Problem Attention deficit hyperactivity disorder (ADHD), unspecified ADHD type F90.9 Active confirmed 418658554 Problem Schizoaffective disorder, unspecified type F25.9 Active confirmed 28400769 RULE OUT Problem Gastroesophageal reflux disease without esophagitis K21.9 Active confirmed 102957454 Problem Insomnia, unspecified type G47.00 Active confirmed 203195371 Problem Post-traumatic stress disorder, unspecified F43.10 Active confirmed 64431323 Problem BOOKER (generalized anxiety disorder) F41.1 Activ e confirmed 52747389 Problem Anxiety F41.9 Active confirmed 51411038 Problem Depression, unspecified depression type F32.9 Active confirmed 44314695 Problem Tobacco dependence F17.200 Active confirmed 92956504 Problem Other chronic pain G89.29 Active confirmed 8 6738203 Problem Hypoglycemia E16.2 Active confirmed 4549229 03 ALLERGIES Allergen (clinical drug ingredient) Drug/Non Drug Allergy do cumented on EMR Reaction Allergy Type Onset Date Status NSAIDS Unknown Non Drug Allergy Active amitriptyline Amitriptyline HCl([facility] Code:[address]-72) Unknown Dr mary Allergy Active rizatriptan Maxalt([facility] Code:[address]-98) anaphylaxis Drug Allergy Active Bees Anaphylaxis-Bakers Yeast Non Drug Allergy Active ENCOUNTERS from 1982 to 2021-03-27 Encounter Location Date Provider Diagnosis [address] [address] Mar, Abida Gomez Hypothyroidism, unspecified type E03.9 and Diarrhea, unspecified type R19.7 IMMUNIZATIONS No Information SOCIAL HISTORY Tobacco Use: [...] to dissolve Sublingual Once a day Active [place] Carbonate 300 MG 1 capsule Orally Twice a day for 30 day (s) Feb, Not-Taking Multivitamin Adult - 1 tablet Orally Once a day for 30 day(s) Active PROCEDURES No Information RESULTS Component Value Reference Range CT ABD/PEL NO CONTRAST - [id number] Reviewed date:03/19/2021 16:52:47 Interpretation: Performing Lab: REASON FOR VISIT labs MEDICAL (GENERAL) HISTORY Type Description Date Medical History Obesity s/p gastric bypass Medical History Anxiety/Depression/PTSD Medical History Bipolar/ADHD Medical History Stomach ulcers Medical History ovarian cyst left side Medical History Crohn's Medical History Kaitlyn's Medical History [place] Medical History hysterectomy Medical History iron deficient Medical History Kaitlyn's disease Medical History Allergy to bee sting Surgical History L2-S1 spinal fusion-[place] 2009 Surgical History x 2 Surgical History gastric bypass 2011 Surgical History peptic ulcer perforation repair- Dr. Sinha 06/2016 Surgical History EGD 02/2017 Surgical History Gastric bypass revision/ulcer repair-Dr. Sullivan 03/14/2017 Surgical History Hysterectomy 2007 Surgical History colonoscopy-[facility] Surgical History EGD-[facility] 09/2018 Surgical History EGD-[facility] 01/2019 Surgical History EGD and C-scope 2019 Hospitalization History surgical purposes Hospitalization History upper GI bleed/severe stomach pain Hospitalization History upper GI bleed 02/2017 Hospitalization History upper gi bleed 11/2017 Hospitalization History abdominal pain x 8 [facility] 10/2018 Goals Section No Information Health Concerns No Information MEDICAL EQUIPMENT No Information MENTAL STATUS No Information FUNCTIONAL STATUS No Information ASSESSMENTS Encounter Date Diagnosis Assessment Notes Treatment Notes Treatm ent Clinical Notes Mar, Hypothyroidism, unspecified type (ICD-10 - E03.9 ) Mar, Diarrhea, unspecified type (ICD-10 - R19.7) PLAN OF TREATMENT Medication Medication Name Sig Start Date Stop Date Rexulti 1 MG 1 tablet Orally Once a day for 30 day(s) Mar, Next Appt Details Provider Name:Anna Marie Silverman, 2021-04-09 1 0:00:00 AM, [address] [place] [address], [phone], Provider Name:Ragini Mac, 2021-04-22 03:00:00 PM, [address] [place] [address], [phone], Insurance Providers Payer Name Payer Address Payer Phone Insured Name Patient Relati onship to Insured Coverage Start Date Coverage End Date [facility] - MEDICAID ANCILLARY [facility] APG BILL [facility]ER [facility] [address] [facility] [phone] Ada [facility]you[facility] MED[facility] DIVISION [address] [facility] 139[address] Ada Ayoub [facility] [address] [facility] [address] [phone] Ada Ayoub
--- OUTSIDE RECORDS SUMMARY | 2021-05-25 21:54 | CCD | Summary of Care ---
Author Author [facility] Organization [facility] Address Unknown Phone Unavailable Care Team Providers Care Dental Service Technician Name Role Phone Adis Castillo PCP Encounter Details Care Team Description Date Type Department 03/22/2021 [facility] TRANSFER CE NTER Encounter [address] [place] [address] Allergies Comments Active Allergy Reactions Severity Noted Date Burning, blisters at site....paper tape ok Adhesive Tape 03/10/2017 Makes patient have schizophrenic behavior. 03/03/17: patient states she has suicidal thoughts. Amitriptyline Other (See 01/18/2014 Comments) Bee Sting Anaphylaxis High 10/14/2012 Rizatriptan Benzoate Anaphylaxis High 3 Due to Gastric Bypass Nsaids 01/09/2019 documented as of this encounter (statuses as of 04/06/2021) Medications End Date Status Medication Sig Dispensed Refills Start Date Active Biotin 08350 MCG TABS Take 2 30 tablet 0 03/10 tablets by 7 mouth daily Active Multiple Take 1 tablet 0 Vitamins-Minerals by mouth 7 (MULTIVITAMIN WITH daily MINERALS) tablet Active zolpidem (AMBIEN) 10 MG Take 10 mg by 0 tablet mouth nightly 8 as needed Active Brexpiprazole (REXULTI) Take 1 tablet 0 0.25 MG TABS by mouth nightly Active venlafaxine (EFFEXOR-XR) Take 150 mg 0 150 MG 24 hr capsule by mouth daily Active trazodone (DESYREL) 50 MG Take 50 mg by 0 tablet mouth nightly as needed for Sleep Active sucralfate (CARAFATE) 1 g Take 1 tablet 120 tablet 1 tablet by mouth Four 9 times daily Please make a slurry from the tablet and take this before meals and nightly Active cloNIDine (CATAPRES) 0.2 Take 0.2 mg 2 03/14 MG tablet by mouth Two 9 Times Daily Active ONETOUCH VERIO test strip TEST ONCE 0 03/11 DAILY AND 9 NEEDED Active mirtazapine (REMERON) 15 TAKE ONE 2 03/14 MG tablet TABLET BY 9 MOUTH EVERY EVENING AT BEDTIME Active pantoprazole (PROTONIX) Take 40 mg by 0 40 MG tablet mouth Two 9 Times Daily Active cetirizine (ZYRTEC) 10 MG Take 1 tablet 0 08/09 tablet by mouth 8 daily Active levothyroxine (SYNTHROID, Take 125 mcg 0 LEVOTHROID) 25 MCG tablet by mouth every morning before breakfast Active ONETOUCH DELICA LANCETS TEST ONCE 0 33G MISC DAILY AND 9 NEEDED Active Blood Glucose Monitoring Inject 1 kit 0 04/08 Suppl (ONETOUCH VERIO into the skin 9 FLEX SYSTEM) w/Device KIT See Admin Instructions Use as Directed Active buPROPion HCl 75 MG Oral Take 75 mg by 0 Tablet (WELLBUTRIN) mouth Two Times Daily Active QUEtiapine Fumarate 25 MG Take 50 mg by 0 Oral Tablet (SEROquel) mouth Two Times Daily Active Gabapentin 400 MG Oral Take 1,200 mg 0 Capsule (NEURONTIN) by mouth Three times daily documented as of this encounter (statuses as of 04/06/2021) Active Problems Problem Noted Date Hematemesis 08/02/2019 Marginal ulcer 01/17/2018 Ulcer 11/24/2017 Abdominal pain 11/23/2017 Marginal ulcer 03/11/2017 Upper GI bleed 03/01/2017 Anemia of chronic disease 12/31/2016 Overview: Formatting of this note might be differ ent from the original. Follow. Anastomotic ulcer S/P gastric bypass 04/19/2016 Overview: Formatting of this note might be differ ent from the original. 15 mm cratered ulcer at anastomotic sit e. Likely the cause of her pain. H. Pylori antibodies and treat if positive . Sulcarafate and protonix. Ileus 04/15/2016 Crohn's disease 01/17/2016 Mesenteric lymphadenopathy 12/19/2015 S/P bariatric surgery -- [facility] 02/201311/21/2015 Chronic abdominal pain 11/21/2015 S/P appendectomy -- 05/201311/21/2015 S/P cholecystectomy -- 199811/21/2015 Malnutrition 03/31/2013 Allergic state Overview: Formatting of this note might be differ ent from the original. ICD10 Replacement code Asthma Overview: Formatting of this note might be differ ent from the original. when exercising PTSD (post-traumatic stress disorder) Depression with anxiety Low back pain Thyroid disease documented as of this encounter (statuses as of 04/06/2021) Resolved Problems Problem Noted Date Resolved Date Hematochezia 12/19/2015 01/24/2016 Colitis 12/19/2015 01/24/2016 Abdominal pain 12/18/2015 01/24/2016 Hypokalemia 12/18/2015 01/24/2016 Nausea and vomiting 11/21/2015 01/24/2016 Dehydration, moderate 11/21/2015 01/24/2016 Dehydration 08/20/2015 01/24/2016 Nausea & vomiting 08/10/2014 08/20/2015 Hypotension 08/10/2014 08/20/2015 Dehydration 08/10/2014 08/20/2015 Vomiting 08/10/2014 11/21/2015 Abdominal pain 01/19/2014 11/21/2015 Morbid obesity 12/20/2012 08/20/2015 Rash, skin 11/21/2015 Sleep apnea 01/24/2016 documented as of this encounter (statuses as of 04/06/2021) Immunizations Name Administration Dates Next Due Influenza Quad IM Pres 05/10/2019 Free (0.5 mL dose) PPD Placement 01/16/2016 documented as of this encounter Social History Date Tobacco Use Types Packs/Day Years Used Quit: 12/27/2017 Former Smoker Cigarettes 6 3 Smokeless Tobacco: Never Used Comments Alcohol Use Standard Drinks/Week 1x a month No .[id number] (1 sta ndard drink = 0.6 oz pure alcohol) Sex Assigned at Date Recorded Not on file documented as of this encounter Last Filed Vital Signs Not on filedocumented in this encounter Progress Notes * Ami Bautista, RN - 03/22/2021 8:11 PM EDT I was asked to ascertain bed availability for this patient and have determined t hat no appropriate bed for this individual patient is available at either campus . This includes hallway beds or other accommodations that we would customarily m alan for this individual patient's needs. documented in this encounter Plan of Treatment Health Maintenance Due Date Last Done Comments MMR Vaccines (1 of - 1983 Standard series) Varicella Vaccines (1 of 1983 2 - 2-dose childhood series) Pneumococcal Vaccine: 65+ 1988 Years (1 of 2 - PPSV23) Pneumococcal Vaccine: 1988 Pediatrics (0 to 5 Years) and At-Risk Patients (6 to 64 Years) (1 of 2 - PPSV23) HIV Screening 1995 Cervical Cancer Screening 2003 5 years DTaP,Tdap,and Td Vaccines 09/01/2018 08/04/2018 (2 - Td or Tdap) Influenza Vaccine 05/09/2021 05/10/2019 HIB Vaccines Aged Out No longer eligible based on patient's age to complete this topic Hepatitis A Vaccines Aged Out No longer eligibl e based on patient's age to complete this topic Hepatitis B Vaccines Aged Out No longer eligibl e based on patient's age to complete this topic IPV Vaccines Aged Out No longer eligible based on patient's age to complete this topic documented as of this encounter Goals Goal Patient Associated Recent Progress Patient-Stat Aut hor Goal Type Problems ed? Have 3 meals a day Diet Not on track No Lumbra zo, (01/18/2014 1:22 PM Myrna Castro NP EDT) Increase water intake Diet Not on track No Lum brazo, (01/18/2014 1:22 PM Myrna Castro NP EDT) Increase physical activity Lifestyle Not on track No Lumbrazo, (01/18/2014 1:22 PM Myran Castro NP EDT) documented as of this encounter Results Not on filedocumented in this encounter
--- OUTSIDE RECORDS SUMMARY | 2021-05-25 21:54 | CCD ---
Author Organization Unknown Address [address] [place] [address] Phone [phone] Care Team Providers Care Press Tool Maker Name Role Phone SAJAN DUVAL PA-C 3 [phone] Allergies Code Code System Name Reaction Severity Status Onset Amitriptyline Hcl Hallucinations Severe Active 09/11/2014 471964 RxNorm Maxalt Other Moderate to Severe Active 0 09/11/2014 704 RxNorm Amitriptyline Hallucinations Severe Deactivated Medications [...] not avai lable 08/09/2002 Delivery Notes: x2 2005 Information not available 08/09/1998 Cholecystectomy Information not avai lable 03/18/2021 MRI, Lumbar Spine, W/wo Contrast Informa tion not available Results Lab Results None recorded. Past Encounters 03/18/2021 Lumbar Post-laminectomy Syndrome; Lumbar Radiculopathy; Degeneration of Lumbar Intervertebral Disc; Degeneration of Lumbosacral Intervertebral Disc; Displacement of Lumbar Intervertebral Disc without Myelopathy; Intervertebral Disc Disorder; Spondylosis without Myelopathy; Lumbosacral Spondylosis without Myelopathy; Myofascial Pain David Willard MD: [id number] [facility] [address], [place] [address], Ph. Social History Tobacco Smoking Status Heavy [...]
--- OUTSIDE RECORDS SUMMARY | 2021-05-25 21:54 | CCD ---
Author Author [facility] Organization [facility] Address Unknown Phone Unavailable Care Team Providers Care Sorting Cows Worker Name Role Phone Abida Gomez Unavailable PROBLEMS Type Condition ICD9-CM Code FLR68-EJ Code Onset Dates Condition S tatus W/U Status Risk SNOMED Code Notes Problem Hypothyroidism, unspecified type E03.9 Active conf irmed 76376673 Problem Migraine without status migr ainosus, not intractable, unspecified migraine type G43.909 Active confirmed 78953242 Problem Bipolar 1 disorder F31.9 Active confirmed 3 36545210 Problem Bleeding ulcer K27.4 Active confirmed 50267 000 Problem Crohn's disease with complic ation, unspecified gastrointestinal tract location K50.919 Active confirmed 42576959 Problem 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 Active confirmed 863767618 Problem History of gastrointestinal ulcer Z87.19 Active confirmed 183673298 Problem Cocaine abuse in remission F14.11 Active confirmed 408783257 Problem History of ulcer disease Z87.898 Active confirmed 045554878 Problem Normocytic hypochromic anemia D50.9 Active confirm ed 68305729 Problem Attention deficit hyperactivity disorder (ADHD), unspecified ADHD type F90.9 Active confirmed 514442549 Problem Schizoaffective disorder, unspecified type F25.9 Active confirmed 47846165 RULE OUT Problem Gastroesophageal reflux disease without esophagitis K21.9 Active confirmed 076887871 Problem Insomnia, unspecified type G47.00 Active confirmed 684952135 Problem Post-traumatic stress disorder, unspecified F43.10 Active confirmed 81113143 Problem BOOKER (generalized anxiety disorder) F41.1 Activ e confirmed 59428944 Problem Anxiety F41.9 Active confirmed 84727490 Problem Depression, unspecified depression type F32.9 Active confirmed 69851234 Problem Tobacco dependence F17.200 Active confirmed 51948391 Problem Other chronic pain G89.29 Active confirmed 8 2331958 Problem Hypoglycemia E16.2 Active confirmed 4659385 03 ALLERGIES Allergen (clinical drug ingredient) Drug/Non Drug Allergy do cumented on EMR Reaction Allergy Type Onset Date Status NSAIDS Unknown Non Drug Allergy Active rizatriptan Maxalt([facility] Code:[address]-68) anaphylaxis Drug Allergy Active Bees Anaphylaxis-Bakers Yeast Non Drug Allergy Active amitriptyline Amitriptyline HCl([facility] Code:[address]-12) Unknown Dr hernandez Allergy Active ENCOUNTERS from 1982 to 2021-05-05 Encounter Location [place] [address] Apr, Abida Jason IMMUNIZATIONS No Information SOCIAL [...] QD AND PRN for 90 days Active [place] Carbonate 300 MG 1 capsule Orally Twice [...] Information RESULTS No Results REASON FOR VISIT [facility]/ Hospital follow-up MEDICAL (GENERAL) HISTORY Type Description Date Medical [...] 03/14/2017 Surgical History Hysterectomy 2007 Surgical History colonoscopy-[facility] Surgical History EGD-[facility] 09/2018 Surgical History [facility] 01/2019 Surgical History EGD and C-scope 2019 Hospitalization History surgical purposes Hospitalization History upper GI bleed/severe stomach pain Hospitalization History upper GI bleed 02/2017 Hospitalization History upper gi bleed 11/2017 Hospitalization History abdominal [facility] x [facility] [place] 10/2018 Hospitalization History Upper GI bleed [facility]) 04/28 21 Goals Section No Information Health Concerns No Information MEDICAL EQUIPMENT No Information MENTAL STATUS No Information FUNCTIONAL STATUS No Information ASSESSMENTS No Information PLAN OF TREATMENT Medication Medication Name Sig Start Date Stop Date Rexulti 2 MG 1 tablet Orally Once a day for 30 days Mar, 021 Next Appt Details 05/16/21 11:00 Reason: Provider Name:Abida Gomez, 8 11:00:00 AM, [address] [place] [address], [phone], Provider Name:Ragini Watts 2021-05-20 01:00:00 PM, [address] [place] [address], [phone], Provider Name:Anna Marie Silverman 2021-05-21 1 0:00:00 AM, [address] [place] [address], [phone], Provider Name:Anna Marie Silverman 2021-06-02 0 2:00:00 PM, [address] [place] [address], [phone], Insurance Providers Payer Name Payer Address Payer Phone Insured Name Patient Relati onship to Insured Coverage Start Date Coverage End Date [employer] - MEDICAID ANCILLARY [employer] APG BILL [facility] [address] [facility] [id number] Ada Ayoub [employer] - [place] MED[employer]ARE DIVISION [address] [facility] 139[address] Ada Ayoub [employer] - [place] [address] [facility] [id number] Ada Ayoub
--- OUTSIDE RECORDS SUMMARY | 2021-05-25 21:55 | CCD ---
Author Author [facility] Organization [facility] Address Unknown Phone Unavailable Care Team Providers Care Recruitment Director Name Role Phone Abida Gomez Unavailable PROBLEMS Type Condition ICD9-CM Code [id number] Code Onset Dates Condition S tatus W/U Status Risk SNOMED Code Notes Problem Migraine without status migr ainosus, not intractable, unspecified migraine type G43.909 Active confirmed 98303602 Problem Anxiety F41.9 Active confirmed 27830976 Problem Bleeding ulcer K27.4 Active confirmed 44810 000 Problem Hypothyroidism, unspecified type E03.9 Active conf irmed 36533888 Problem 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 Active confirmed 486124592 Problem Bipolar 1 disorder F31.9 Active confirmed 3 63122701 Problem Cocaine abuse in remission F14.11 Active confirmed 840013821 Problem Crohn's disease with complic ation, unspecified gastrointestinal tract location K50.919 Active confirmed 66286308 Problem BOOKER (generalized anxiety disorder) F41.1 Activ e confirmed 43445603 Problem History of ulcer disease Z87.898 Active confirmed 093542976 Problem Normocytic hypochromic anemia D50.9 Active confirm ed 29090614 Problem Tobacco dependence F17.200 Active confirmed 06559171 Problem Gastroesophageal reflux disease without esophagitis K21.9 Active confirmed 616355789 Problem Other chronic pain G89.29 Active confirmed 8 2363646 Problem History of gastrointestinal ulcer Z87.19 Active confirmed 806065741 Problem Insomnia, unspecified type G47.00 Active confirmed 014886652 Problem Attention deficit hyperactivity disorder (ADHD), unspecified ADHD type F90.9 Active confirmed 243309794 Problem Depression, unspecified depression type F32.9 Active confirmed 99971832 Problem PTSD (post-traumatic stress disorder) F43.10 Ac tive confirmed 25461540 Problem Hypoglycemia E16.2 Active confirmed 4138300 03 ALLERGIES Allergen (clinical drug ingredient) Drug/Non Drug Allergy do cumented on EMR Reaction Allergy Type Onset Date Status NSAIDS Unknown Non Drug Allergy Active amitriptyline Amitriptyline HCl([facility] Code:[address]-56) Unknown Dr mary Allergy Active rizatriptan Maxalt([facility] Code:[address]-89) anaphylaxis Drug Allergy Active Bees Anaphylaxis-Bakers Yeast Non Drug Allergy Active ENCOUNTERS from 1982 to 2021-03-11 Encounter Location Date Provider Diagnosis [address] [address] Mar, Abida Jason IMMUNIZATIONS No Information SOCIAL [...] Start Da te End Date Status One touch Ultra mini meter as dir; E11.9 up to 2x per day as needed for low blood sugar symptoms for 30 days Active ONE TOUCH TEST STRIPS as directed; E11.9 QD AND PRN for 90 days Active Doxepin HCl 25 MG 1 capsule at bedtime Orally qhs Jul, Not-Taking Remeron 15 MG TAKE ONE TABLET BY MOUTH BERYL RY EVENING orally once a day for 30 days Not-Taking Multivitamin Adult - 1 tablet Orally Once a day for 30 day(s) Active Hair Skin & Nails Gummies 1250-7.5-7.5 MCG-MG-UNT as directed Orally Active Biotin 10 MG 1 tablet Orally Once a day for 30 day(s) Active Levothyroxine Sodium 25 MCG 1 tablet in the morning on an empty stomach Orally Once a day for 30 day(s) Jan, Active SEROquel 25 MG 1 tablet Orally twice daily as needed for 60 days Not-Taking Pantoprazole Sodium 40 MG 1 tablet Orally Twice a day for 30 day (s) Nov, Active EpiPen 2-Sav 0.3 MG/0.3ML as directed Injection once for 2 days Jan, Active Prazosin HCl 1 MG 1 capsule at bedtime Orally Once a day for 30 day(s) Feb, Active Carafate 1 GM 1 tablet on an empty stomach Orally four times a day as needed for 30 days Active Zantac 150 MG 1 tablet at bedtime Orally Once a day for 30 day (s) Nov, Active Suboxone 8-2 MG 1 film under the tongue and allow to dissolve Sublingual Once a day Active [place] Carbonate 300 MG 1 capsule Orally Twice a day for 30 day (s) Feb, Not-Taking One Touch Delica Lancets as directed; E11.9 QD and prn for 90 days Active PROCEDURES No Information RESULTS No Results REASON FOR VISIT referral request MEDICAL (GENERAL) HISTORY Type Description Date Medical [...] 03/14/2017 Surgical History Hysterectomy 2007 Surgical History colonoscopy-[facility] Surgical History EGD-[facility] 09/2018 Surgical History EGD[facility] 01/2019 Surgical History EGD and C-scope 2019 Hospitalization History surgical purposes Hospitalization History upper GI bleed/severe stomach pain Hospitalization History upper GI bleed 02/2017 Hospitalization History upper gi bleed 11/2017 Hospitalization History abdominal pain x 8 days-[facility] 10/2018 Goals Section No Information Health Concerns No Information MEDICAL EQUIPMENT No Information MENTAL STATUS No Information FUNCTIONAL STATUS No Information ASSESSMENTS No Information PLAN OF TREATMENT Next Appt Details Provider Name:Anna Marie Silverman, 2021-03-19 1 0:00:00 AM, [address] [place] [address], [phone], Provider Name:Ragini Watts, 2021-04-22 03:00:00 PM, [address] [place] [address], [phone], Insurance Providers Payer Name Payer Address Payer Phone Insured Name Patient Relati onship to Insured Coverage Start Date Coverage End Date [facility] - [employer] [address] [facility] [address] [facility] [place] [address] [facility] [id number] [address]you[address] [facility] [address] [facility] [id number] Ada Ayoub
--- OUTSIDE RECORDS SUMMARY | 2021-05-25 21:55 | CCD ---
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 Active confirmed 58275631 Problem Hypothyroidism, unspecified type E03.9 Active conf irmed 91542668 Problem Other specified depressive episodes F32.89 Acti ve confirmed 31487561 Problem Post-traumatic stress disorder, unspecified F43.10 Active confirmed 76311224 Problem Current tobacco use Z72.0 Active confirmed 384900034 Problem Low back pain M54.5 Active confirmed 522691 009 Problem 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 12 Active confirmed 85878289 Problem Crohn''s disease with compli cation, unspecified gastrointestinal tract location K50.919 Active confirmed 94786541 Problem Gastroesophageal reflux disease without esophagitis K21.9 Active confirmed 469581634 Problem Bipolar 1 disorder F31.9 Active confirmed 3 09257339 Problem History of Crohn's disease Z87.19 Active confirmed 015695440 Problem BOOKER (generalized anxiety disorder) F41.1 Activ e confirmed 28942617 Problem Crohn's disease with complic ation, unspecified gastrointestinal tract location K50.919 Active confirmed 30844627 Problem Cocaine abuse in remission F14.11 Active confirmed 664701121 Problem History of gastrointestinal ulcer Z87.19 Active confirmed 101693794 Problem Depression, unspecified depression type F32.9 Active confirmed 79437404 Problem Lumbago with sciatica, left side M54.42 Active confirmed 042394664 Problem PTSD (post-traumatic stress disorder) F43.10 Ac tive confirmed 88963367 Problem Bleeding ulcer K27.4 Active confirmed 01374 000 Problem Lumbago with sciatica, right side M54.41 Active confirmed 919772616207776 Problem History of ulcer disease Z87.898 Active confirmed 647727978 Problem Normocytic hypochromic anemia D50.9 Active confirm ed 85849128 Problem Allergy to bee sting Z91.030 Active confirmed 349934027 Problem Attention deficit hyperactivity disorder (ADHD), unspecified ADHD type F90.9 Active confirmed 210689520 ALLERGIES Allergen (clinical drug ingredient) Drug/Non Drug Allergy do cumented on EMR Reaction Allergy Type Onset Date Status NSAIDS Unknown Non Drug Allergy Active amitriptyline Amitriptyline HCl([facility]NOTE 3] Code:[address]-98) Unknown Dr ug Allergy Active rizatriptan Maxalt([facility][NOTE 3] Code:[address]-66) anaphylaxis Drug Allergy Active Bees Anaphylaxis-Bakers Yeast Non Drug Allergy Active Seasonal allergies Unknown Non Drug Allergy Active ENCOUNTERS from 1982 to 2021-03-03 Encounter Location Date Provider Diagnosis [address] [address] Feb, Abida Jason IMMUNIZATIONS No Information SOCIAL HISTORY [...] Answer Notes Are you a current smoker Are you interested in quitting? Thinking about quitting How many cigarettes a day do you smoke? 11-20 How soon after you wake up do you smoke your first cigarette ? within 5 minutes How often do you smoke cigarettes? every day REASON FOR REFERRAL No Information VITAL SIGNS No information MEDICATIONS Medication SIG (Take, Route, Frequency, Duration) Notes Start Da te End Date Status Prazosin HCl 1 MG 1 capsule at bedtime Orally Once a day for 30 day(s) Feb, Active Carafate 1 GM 1 tablet on an empty stomach Orally four times a day as needed for 30 days Active Doxepin HCl 25 MG 1 capsule at bedtime Orally qhs Jul, Active EpiPen 2-Sav 0.3 MG/0.3ML as directed Injection once for 2 days Jan, Active One Touch Delica Lancets as directed; E11.9 QD and prn for 90 days Active Pantoprazole Sodium 40 MG 1 tablet Orally Twice a day for 30 day (s) Nov, Active [place] Carbonate 300 MG 1 capsule Orally Twice a day for 30 day (s) Feb, Active ONE TOUCH TEST STRIPS as directed; E11.9 QD AND PRN for 90 days Active Suboxone 8-2 MG 1 film under the tongue and allow to dissolve Sublingual Once a day Active Levothyroxine Sodium 25 MCG 1 tablet in the morning on an empty stomach Orally Once a day for 30 day(s) Jan, Active Remeron 15 MG TAKE ONE TABLET BY MOUTH BERYL RY EVENING orally once a day for 30 days Not-Taking SEROquel 25 MG 1 tablet Orally twice daily as needed for 60 days Active One touch Ultra mini meter as dir; E11.9 up to 2x per day as needed for low blood sugar symptoms for 30 days Active Zantac 150 MG 1 tablet at bedtime Orally Once a day for 30 day (s) Nov, Not-Taking PROCEDURES No Information RESULTS No Results REASON FOR VISIT medication MEDICAL (GENERAL) HISTORY Type Description Date Medical History Obesity s/p gastric bypass Medical History Anxiety/Depression/PTSD Medical History Bipolar/ADHD Medical History Stomach ulcers Medical History ovarian cyst left side Medical History Crohn's Medical History Kaitlyn's Medical History Paranoia Medical History hysterectomy Medical History iron deficient Surgical History L2-S1 spinal fusion-[place] 2009 Surgical History x 2 Surgical History gastric bypass 2010 Surgical History peptic ulcer perforation repair- Dr. Sinha 06/2016 Surgical History EGD 02/2017 Surgical History Gastric bypass revision/ulcer repair-Dr. Sullivan 03/14/2017 Surgical History Hysterectomy 2007 Surgical History colonoscopy[facility] Surgical History EGD-[facility] 09/2018 Surgical History EGD-[facility] 01/2019 Surgical History EGD and C-scope 2019 Hospitalization History surgical purposes Hospitalization History upper GI bleed/severe stomach pain Hospitalization History upper GI bleed 02/2017 Hospitalization History upper gi bleed 11/2017 Hospitalization History abdominal pain x 8 days-[facility] 10/2018 Goals Section No Information Health Concerns No Information MEDICAL EQUIPMENT No Information MENTAL STATUS No Information FUNCTIONAL STATUS No Information ASSESSMENTS No Information PLAN OF TREATMENT Next Appt Details Provider Name:Abida Jason, 2 02:40:00 PM, [address] [place] [address], [phone], Provider Name:Anna Marie Herrera, 2021-03-11 0 8:30:00 AM, [address] [place] [address], [phone], Provider Name:Ragini Mac, 2021-04-22 03:00:00 PM, [address] [place] [address], [phone], Insurance Providers Payer Name Payer Address Payer Phone Insured Name Patient Relati onship to Insured Coverage Start Date Coverage End Date [facility] [employer] [address] [facility] [address] [address] [facility] - MEDICAID [facility] [address] [facility] [phone] Ada Ayoub [facility] [place] [address] [facility] [id number] Ada Ayoub
--- OUTSIDE RECORDS SUMMARY | 2021-05-25 21:58 | CCD ---
Author Author [facility] Organization [facility] Address Unknown Phone Unavailable Care Team Providers Care Shower Screen Installer Name Role Phone Pam Baires Unavailable Pam Baires Unavailable Pam Baires Unavailable Dequan, Pam Unavailable Dequan, Pam Unavailable Dequan, Pam Unavailable Dequan, Pam Unavailable CARI DE SOUZA MD Unavailable Unavailable SYMENOW, G CHRISTOPHER PA Unavailable Unavailable SYMENOW, G CHRISTOPHER PA Unavailable Unavailable SYMENOW, G CHRISTOPHER PA Unavailable Unavailable SYMENOW, G CHRISTOPHER PA Unavailable Unavailable SYMENOW, G CHRISTOPHER PA Unavailable Unavailable SYMENOW, G CHRISTOPHER PA Unavailable Unavailable SYMENOW, G CHRISTOPHER PA Unavailable Unavailable SYMENOW, G CHRISTOPHER PA Unavailable Unavailable SYMENOW, G CHRISTOPHER PA Unavailable Unavailable SYMENOW, G CHRISTOPHER PA Unavailable Unavailable SYMENOW, G CHRISTOPHER PA Unavailable Unavailable SYMENOW, G CHRISTOPHER PA Unavailable Unavailable SYMENOW, G CHRISTOPHER PA Unavailable Unavailable SYMENOW, G CHRISTOPHER PA Unavailable Unavailable SYMENOW, G CHRISTOPHER PA Unavailable Unavailable SYMENOW, G CHRISTOPHER PA Unavailable Unavailable Jason, M Abida PA-C Unavailable Unavailable Jason, M Abida PA-C Unavailable Unavailable Jason, M Abida PA-C Unavailable Unavailable Jason, M Abida PA-C Unavailable Unavailable Jason, M Abida PA-C Unavailable Unavailable Jason, M Abida PA-C Unavailable Unavailable Jason, M Abida PA-C Unavailable Unavailable Jason, M Abida PA-C Unavailable Unavailable Jason, M Abida PA-C Unavailable Unavailable Jason, M Abida PA-C Unavailable Unavailable Jason, M Abida PA-C Unavailable Unavailable Jason, M Abida PA-C Unavailable Unavailable Jason, M Abida PA-C Unavailable Unavailable Jason, M Abida PA-C Unavailable Unavailable Jason, M Abida PA-C Unavailable Unavailable Jason, M Abida PA-C Unavailable Unavailable Jason, M Abida PA-C Unavailable Unavailable Jason, M Abida PA-C Unavailable Unavailable Jason, M Abida PA-C Unavailable Unavailable Jason, M Abida PA-C Unavailable Unavailable Jason, M Abida PA-C Unavailable Unavailable Jason, M Abida PA-C Unavailable Unavailable Jason, M Abida PA-C Unavailable Unavailable Jason, M Abida PA-C Unavailable Unavailable Jason, M Abida PA-C Unavailable Unavailable Jason, M Abida PA-C Unavailable Unavailable Jason, M Abida PA-C Unavailable Unavailable Jason, M Abida PA-C Unavailable Unavailable Jason, M Abida PA-C Unavailable Unavailable Jason, M Abida PA-C Unavailable Unavailable Jason, M Abida PA-C Unavailable Unavailable Jason, M Abida PA-C Unavailable Unavailable Jason, M Abida PA-C Unavailable Unavailable Jason, M Abida PA-C Unavailable Unavailable Jason, M Abida PA-C Unavailable Unavailable Mac, Ragini Unavailable Unavailable Mac, Ragini Unavailable Unavailable Mac, Ragini Unavailable Unavailable MELVINAJEFE MD Unavailable Unavailable MELVINAJEFE Ellis MD Unavailable Unavailable MELVINAJEFE MD Unavailable Unavailable MELVINAJEFE MD Unavailable Unavailable MELVINAJEEF MD Unavailable Unavailable MELVINAJEFE MD Unavailable Unavailable MELVINAJEFE MD Unavailable Unavailable MELVINAJEFE MD Unavailable Unavailable MELVINAJEFE MD Unavailable Unavailable MELVINAJEFE MD Unavailable Unavailable MELVINAJEFE MD Unavailable Unavailable MELVINAJEFE MD Unavailable Unavailable MELVINAJEFE MD Unavailable Unavailable MELVINAJEFE MD Unavailable Unavailable MELVINAJEFE MD Unavailable Unavailable MELVINAJEFE MD Unavailable Unavailable MELVINAJEFE Ellis MD Unavailable Unavailable MondomCari MD Unavailable Unavailable MondomCari MD Unavailable Unavailable MonCari alvarez MD Unavailable Unavailable MonCari alvarez MD Unavailable Unavailable MonCari alvarez MD Unavailable Unavailable MonCari alvarez MD Unavailable Unavailable MonCari alvarez MD Unavailable Unavailable MonCari alvarez MD Unavailable Unavailable BUDDY FAIR, FREDERICK Unavailable Unavailable DEFAULT, PROVIDER Unavailable Unavailable SANDEEP BAZAN MD Unavailable Unavailable SANDEEP BAZAN MD Unavailable Unavailable SANDEEP BAZAN MD Unavailable Unavailable SANDEEP BAZAN MD Unavailable Unavailable SANDEEP BAZAN MD Unavailable Unavailable SANDEEP BAZAN MD Unavailable Unavailable SANDEEP BAZAN MD Unavailable Unavailable SANDEEP BAZAN MD Unavailable Unavailable SANDEEP BAZAN MD Unavailable Unavailable SANDEEP BAZAN MD Unavailable Unavailable SANDEEP BAZAN MD Unavailable Unavailable GEDELASANDEEP MD Unavailable Unavailable GEDELASANDEEP MD Unavailable Unavailable GEDELASANDEEP MD Unavailable Unavailable GEDELA, SANDEEP FAIR Unavailable Unavailable GEDELA, SANDEEP FAIR Unavailable Unavailable GEDELA, SANDEEP FAIR Unavailable Unavailable GEDELA, SANDEEP FAIR Unavailable Unavailable GEDELASANDEEP MD Unavailable Unavailable GEDELASANDEEP MD Unavailable Unavailable GEDELASANDEEP MD Unavailable Unavailable GEDELASANDEEP MD Unavailable Unavailable GEDELA, SANDEEP FAIR Unavailable Unavailable GEDELASANDEEP MD Unavailable Unavailable GOMEZ, L DENNISE PA Unavailable Unavailable GOMEZ, L DENNISE PA Unavailable Unavailable GOMEZ, L DENNISE PA Unavailable Unavailable GOMEZ, L DENNISE PA Unavailable Unavailable GOMEZ, L DENNISE PA Unavailable Unavailable GOMEZ, L DENNISE PA Unavailable Unavailable GOMEZ, L DENNISE PA Unavailable Unavailable GOMEZ, L DENNISE PA Unavailable Unavailable GOMEZ, L DENNISE PA Unavailable Unavailable GOMEZ, L DENNISE PA Unavailable Unavailable GOMEZ, L DENNISE PA Unavailable Unavailable GOMEZ, L DENNISE PA Unavailable Unavailable GOMEZ, L DENNISE PA Unavailable Unavailable GOMEZ, L DENNISE PA Unavailable Unavailable GOMEZ, L DENNISE PA Unavailable Unavailable GOMEZ, L DENNISE PA Unavailable Unavailable GOMEZ, L DENNISE PA Unavailable Unavailable GOMEZ, L DENNISE PA Unavailable Unavailable GOMEZ, L DENNISE PA Unavailable Unavailable GOMEZ, L DENNISE PA Unavailable Unavailable GOMEZ, L DENNISE PA Unavailable Unavailable GOMEZ, L DENNISE PA Unavailable Unavailable WINSTON QUIROGA MD Unavailable Unavailable WINSTON QUIROGA MD Unavailable Unavailable WINSTON QUIROGA MD Unavailable Unavailable WINSTON QUIROGA MD Unavailable Unavailable WINSTON QUIROGA MD Unavailable Unavailable WINSTON QUIROGA MD Unavailable Unavailable WINSTON QUIROGA MD Unavailable Unavailable Pavelock, Kevin Unavailable Unavailable Pavelock, Kevin Unavailable Unavailable Pavelock, Kevin Unavailable Unavailable Pavelock, Kevin Unavailable Unavailable Pavelock, Kevin Unavailable Unavailable Pavelock, Kevin Unavailable Unavailable Pavelock, Kevin Unavailable Unavailable Pavelock, Kevin Unavailable Unavailable Pavelock, Kevin Unavailable Unavailable Pavelock, Kevin Unavailable Unavailable Pavelock, Kevin Unavailable Unavailable Pavelock, Kevin Unavailable Unavailable Pavelock, Kevin Unavailable Unavailable Pavelock, Kevin Unavailable Unavailable Pavelock, Kevin Unavailable Unavailable Pavelock, Kevin Unavailable Unavailable Pavelock, Kevin Unavailable Unavailable Pavelock, Kevin Unavailable Unavailable Pavelock, Kevin Unavailable Unavailable Pavelock, Kevin Unavailable Unavailable Pavelock, Kevin Unavailable Unavailable Pavelock, Kevin Unavailable Unavailable Pavelock, Kevin Unavailable Unavailable Pavelock, Kevin Unavailable Unavailable Pavelock, Kevin Unavailable Unavailable Pavelock, Kevin Unavailable Unavailable Pavelock, Kevin Unavailable Unavailable Pavelock, Kevin Unavailable Unavailable Pavelock, Kevin Unavailable Unavailable Pavelock, Kevin Unavailable Unavailable Pavelock, Kevin Unavailable Unavailable Pavelock, Kevin Unavailable Unavailable Pavelock, Kevin Unavailable Unavailable Pavelock, Kevin Unavailable Unavailable Pavelock, Kevin Unavailable Unavailable Pavelock, Kevin Unavailable Unavailable Pavelock, Kevin Unavailable Unavailable Pavelock, Kevin Unavailable Unavailable Pavelock, Kevin Unavailable Unavailable Pavelock, Kevin Unavailable Unavailable Pavelock, Kevin Unavailable Unavailable Pavelock, Kevin Unavailable Unavailable Pavelock, Kevin Unavailable Unavailable Pavelock, Kevin Unavailable Unavailable Pavelock, Kevin Unavailable Unavailable Pavelock, Kevin Unavailable Unavailable Pavelock, Kevin Unavailable Unavailable Pavelock, Kevin Unavailable Unavailable Pavelock, Kevin Unavailable Unavailable Pavelock, Kevin Unavailable Unavailable Pavelock, Kevin Unavailable Unavailable Pavelock, Kevin Unavailable Unavailable Pavelock, Kevin Unavailable Unavailable Pavelock, Kevin Unavailable Unavailable Pavelock, Kevin Unavailable Unavailable Pavelock, Kevin Unavailable Unavailable Pavelock, Kevin Unavailable Unavailable Pavelock, Kevin Unavailable Unavailable Pavelock, Kevin Unavailable Unavailable Pavelock, Kevin Unavailable Unavailable Pavelock, Kevin Unavailable Unavailable Pavelock, Kevin Unavailable Unavailable Pavelock, Kevin Unavailable Unavailable PETROFF, WILLIE PA Unavailable Unavailable PETROFF, WILLIE PA Unavailable Unavailable PETROFF, WILLIE PA Unavailable Unavailable PETROFF, WILLIE PA Unavailable Unavailable PETROFF, WILLIE PA Unavailable Unavailable PETROFF, WILLIE PA Unavailable Unavailable PETROFF, WILLIE PA Unavailable Unavailable PETROFF, WILLIE PA Unavailable [facility]available [facility] Unavailable Unavailable ANAYELI BADILLO II, MD Unavailable Unavailable KEEGAN FAIR, BRAYAN Unavailable Unavailable Karen SIBLEY MD Unavailable Unavailable Cesario BADILLO II, MD Unavailable Unavailable PAN, RASHAWN MADIHA PA Unavailable Unavailable PAN, RASHAWN MADIHA PA Unavailable Unavailable PAN, RASHAWN MADIHA PA Unavailable Unavailable PAN, RASHAWN MADIHA PA Unavailable Unavailable PAN, RASHAWN MADIHA PA Unavailable Unavailable PAN, RASHAWN MADIHA PA Unavailable Unavailable PAN, RASHAWN MADIHA PA Unavailable Unavailable PAN, RASHAWN MADIHA PA Unavailable Unavailable PAN, RASHAWN MADIHA PA Unavailable Unavailable PAN, RASHAWN MADIHA PA Unavailable Unavailable PAN, RASHAWN MADIHA PA Unavailable Unavailable PAN, RASHAWN MADIHA PA Unavailable Unavailable PAN, RASHAWN MADIHA PA Unavailable Unavailable PAN, RASHAWN MADIHA PA Unavailable Unavailable PAN, RASHAWN MADIHA PA Unavailable Unavailable PAN, RASHAWN MADIHA PA Unavailable Unavailable PAN, RASHAWN MADIHA PA Unavailable Unavailable PAN, RASHAWN MADIHA PA Unavailable Unavailable PAN, RASHAWN MADIHA PA Unavailable Unavailable PAN, RASHAWN MADIHA PA Unavailable Unavailable PAN, RASHAWN MADIHA PA Unavailable Unavailable PAN, RASHAWN MADIHA PA Unavailable Unavailable Dean Willard MD Unavailable Unavailable BolDean calvert MD Unavailable Unavailable Dean Willard MD Unavailable Unavailable Dean Willard MD Unavailable Unavailable Dean Willard MD Unavailable Unavailable Dean Willard MD Unavailable Unavailable Dean Willard MD Unavailable Unavailable Dean Willard MD Unavailable Unavailable Dean Willard MD Unavailable Unavailable Dean Willard MD Unavailable Unavailable Dean Willard MD Unavailable Unavailable Dean Willard MD Unavailable Unavailable Dean Willard MD Unavailable Unavailable Dean Willard MD Unavailable Unavailable Dean Willard MD Unavailable Unavailable Dean Willard MD Unavailable Unavailable Dean Willard MD Unavailable Unavailable Dean Willard MD Unavailable Unavailable Dean Willard MD Unavailable Unavailable Dean Willard MD Unavailable Unavailable Dean Willard MD Unavailable Unavailable Dean Willard MD Unavailable Unavailable Dean Willard MD Unavailable Unavailable Dean Willard MD Unavailable Unavailable Dean Willard MD Unavailable Unavailable Dean Willard MD Unavailable Unavailable Dean Willard MD Unavailable Unavailable Dean Willard MD Unavailable Unavailable Dean Willard MD Unavailable Unavailable Dean Willard MD Unavailable Unavailable Dean Willard MD Unavailable Unavailable Dean Willard MD Unavailable Unavailable Dean Willard MD Unavailable Unavailable BolDean calvert MD Unavailable Unavailable Dean Willard MD Unavailable Unavailable Dean Willard MD Unavailable Unavailable Dean Willard MD Unavailable Unavailable Dean Willard MD Unavailable Unavailable Dean Willard MD Unavailable Unavailable Dean Willard MD Unavailable Unavailable Dean Willard MD Unavailable Unavailable Dean Willard MD Unavailable Unavailable Dean Willard MD Unavailable Unavailable Dean Willard MD Unavailable Unavailable Dean Willard MD Unavailable Unavailable Dean Willard MD Unavailable Unavailable Dean Willard MD Unavailable Unavailable Dean Willard MD Unavailable Unavailable Dean Willard MD Unavailable Unavailable PATI, CAMILA DO Unavailable Unavailable PATI, CAMILA DO Unavailable Unavailable PATI, CAMILA DO Unavailable Unavailable PATI, CAMILA DO Unavailable Unavailable PATI, CAMILA DO Unavailable Unavailable PATI, CAMILA DO Unavailable Unavailable PATI, CAMILA DO Unavailable Unavailable PATI, CAMILA DO Unavailable Unavailable PATI, CAMILA DO Unavailable Unavailable PATI, CAMILA DO Unavailable Unavailable PATI, CAMILA DO Unavailable Unavailable PATI, CAMILA DO Unavailable Unavailable PATI, CAMILA DO Unavailable Unavailable PATI, CAMILA DO Unavailable Unavailable PATI, CAMILA DO Unavailable Unavailable PATI, CAMILA DO Unavailable Unavailable PATI, CAMILA DO Unavailable Unavailable PATI, CAMILA DO Unavailable Unavailable PATI, CAMILA DO Unavailable Unavailable PATI, CAMILA DO Unavailable Unavailable PATI, CAMILA DO Unavailable Unavailable PATI, CAMILA DO Unavailable Unavailable PATI, CAMILA DO Unavailable Unavailable PATI, CAMILA DO Unavailable Unavailable PATI, CAMILA DO Unavailable Unavailable PATI, CAMILA DO Unavailable Unavailable PATI, CAMILA DO Unavailable Unavailable PATI, CAMILA DO Unavailable Unavailable PATI, CAMILA DO Unavailable Unavailable PATI, CAMILA DO Unavailable Unavailable PATI, CAMILA DO Unavailable Unavailable PATI, CAMILA DO Unavailable Unavailable PATI, CAMILA DO Unavailable Unavailable PATI, CAMILA DO Unavailable Unavailable PATI, CAMILA DO Unavailable Unavailable PATI, CAMILA DO Unavailable Unavailable PATI, CAMILA DO Unavailable Unavailable PATI, CAMILA DO Unavailable Unavailable PATI, CAMILA DO Unavailable Unavailable PATI, CAMILA DO Unavailable Unavailable PATI, CAMILA DO Unavailable Unavailable PATI, CAMILA DO Unavailable Unavailable PATI, CAMILA DO Unavailable Unavailable PATI, CAMILA DO Unavailable Unavailable PATI, CAMILA DO Unavailable Unavailable PATI, CAMILA DO Unavailable Unavailable PATI, CAMILA DO Unavailable Unavailable PATI, CAMILA DO Unavailable Unavailable PATI, CAMILA DO Unavailable Unavailable PATI, CAMILA DO Unavailable Unavailable PATI, CAMILA DO Unavailable Unavailable PATI, CAMILA DO Unavailable Unavailable PATI, CAMILA DO Unavailable Unavailable PATI, CAMILA DO Unavailable Unavailable PATI, CAMILA DO Unavailable Unavailable PATI, CAMILA DO Unavailable Unavailable Morgan, Harley PA-C Unavailable Eddie, Harley PA-C Unavailable Eddie, Harley PA-C Unavailable Eddie, Harley PA-C Unavailable Eddie, Harley PA-C Unavailable MORAES, EDIS FABIEN RPA-C Unavailable Unavailable MORAES, EDIS FABIEN RPA-C Unavailable Unavailable MORAES, EDIS FABIEN RPA-C Unavailable Unavailable MORAES, EDIS FABIEN RPA-C Unavailable Unavailable MORAES, EDIS FABIEN RPA-C Unavailable Unavailable MORAES, EDIS FABIEN RPA-C Unavailable Unavailable MORAES, EDIS FABIEN RPA-C Unavailable Unavailable MORAES, EDIS FABIEN RPA-C Unavailable Unavailable MORASE, EDIS FABIEN RPA-C Unavailable Unavailable MORAES, EDIS FABIEN RPA-C Unavailable Unavailable MORAES, EDIS FABIEN RPA-C Unavailable Unavailable MORAES, EDIS FABIEN RPA-C Unavailable Unavailable MORAES, EDIS FABIEN RPA-C Unavailable Unavailable MORAES, EDIS FABIEN RPA-C Unavailable Unavailable MORAES, EDIS FABIEN RPA-C Unavailable Unavailable MORAES, EDIS FABIEN RPA-C Unavailable Unavailable MORAES, EDIS FABIEN RPA-C Unavailable Unavailable MORAES, EDIS FABIEN RPA-C Unavailable Unavailable MORAES, EDIS FABIEN RPA-C Unavailable Unavailable MORAES, EDIS FABIEN RPA-C Unavailable Unavailable MORAES, EDIS FABIEN RPA-C Unavailable Unavailable MORAES, EDIS FABIEN RPA-C Unavailable Unavailable MORAES, EDIS FABIEN RPA-C Unavailable Unavailable MORAES, EDIS FABIEN RPA-C Unavailable Unavailable MORAES, EDIS FABIEN RPA-C Unavailable Unavailable MORAES, EDIS FABIEN RPA-C Unavailable Unavailable MORAES, EDIS FABIEN RPA-C Unavailable Unavailable MORAES, EDIS FABIEN RPA-C Unavailable Unavailable MORAES, EDIS FABIEN RPA-C Unavailable Unavailable MORAES, EDIS FABIEN RPA-C Unavailable Unavailable MORAES, EDIS FABIEN RPA-C Unavailable Unavailable MORAES, EDIS FABIEN RPA-C Unavailable Unavailable MORAES, EDIS FABIEN RPA-C Unavailable Unavailable MORAES, EDIS FABIEN RPA-C Unavailable Unavailable MORAES, EDIS FABIEN RPA-C Unavailable Unavailable MORAES, EDIS FABIEN RPA-C Unavailable Unavailable MORAES, EDIS FABIEN RPA-C Unavailable Unavailable MORAES, EDIS FABIEN RPA-C Unavailable Unavailable MORAES, EDIS FABIEN RPA-C Unavailable Unavailable MORAES, EDIS FABIEN RPA-C Unavailable Unavailable MORAES, EDIS FABIEN RPA-C Unavailable Unavailable MORAES, EDIS FABIEN RPA-C Unavailable Unavailable MORAES, EDIS FABIEN RPA-C Unavailable Unavailable Fly Aguilar Jr, MD Unavailable Unavailable Fly Aguilar Jr, MD Unavailable Unavailable Fly Aguilar Jr, MD Unavailable Unavailable Jeff Fly Bolaños MD Unavailable Unavailable Fly Aguilar Jr, MD Unavailable Unavailable Jeff Fly Bolaños MD Unavailable Unavailable Jeff Jr Bill Kashif FAIR Unavailable Unavailable Jeff Jr Bill Kashif FAIR Unavailable Unavailable Jeff JrFly MD Unavailable Unavailable Jeff JrFly MD Unavailable Unavailable Jeff JrFly MD Unavailable Unavailable Jeff Fly Bolaños MD Unavailable Unavailable Jeff Fly Bolaños MD Unavailable Unavailable Jeff Fly Bolaños MD Unavailable Unavailable Jeff Fly Bolaños MD Unavailable Unavailable Jeff Fly Bolaños MD Unavailable Unavailable Jeff JrFly MD Unavailable Unavailable Jeff Jr Bill Kashif MD Unavailable Unavailable Jeff JrFly MD Unavailable Unavailable Jeff Jr Bill Kashif MD Unavailable Unavailable Jeff Jr Bill Kashif MD Unavailable Unavailable Jeff Jr Bill Kashif FAIR Unavailable Unavailable Jeff JrFly MD Unavailable Unavailable Jeff Jr Bill Kashif FAIR Unavailable Unavailable Jeff Jr Bill Kashif FAIR Unavailable Unavailable Jeff Jr Bill Kashif MD Unavailable Unavailable Jeff Jr Bill Kashif MD Unavailable Unavailable Jeff Jr Bill Kashif MD Unavailable Unavailable Jeff Jr Bill Kashif Unavailable Unavailable Jeff Jr Bill Kashif FAIR Unavailable Unavailable Jeff Jr Bill Kashif FAIR Unavailable Unavailable Jeff Fly Bolaños MD Unavailable Unavailable Jeff Jr, Bill Kashif MD Unavailable Unavailable Jonn Conrad MD Unavailable Unavailable Jonn Conrad MD Unavailable Unavailable Jonn Conrad MD Unavailable Unavailable Jonn Conrad MD Unavailable Unavailable Anamaria, Jonn FAIR Unavailable Unavailable Anamaria, Jonn MD Unavailable Unavailable Anamaria, Jonn MD Unavailable Unavailable Anamaria, Jonn MD Unavailable Unavailable Anamaria, Jonn MD Unavailable Unavailable Anamaria, Jonn MD Unavailable Unavailable Anamaria, Jonn MD Unavailable Unavailable Anamaria, Jonn MD Unavailable Unavailable Anamaria, Jonn MD Unavailable Unavailable Martinez Conradav MD Unavailable Unavailable Martinez Conradav MD Unavailable Unavailable Anamaria, Jonn MD Unavailable Unavailable Anamaria, Jonn MD Unavailable Unavailable Jonn Conrad MD Unavailable Unavailable Jonn Conrad MD Unavailable Unavailable Jonn Conrad MD Unavailable Unavailable Essence, Nell Cortes MD Unavailable Unavailable Essence, Nell Cortes MD Unavailable Unavailable Essence, Nell Cortes MD Unavailable Unavailable Essence, Nell Cortes MD Unavailable Unavailable Essence, Nell Cortes MD Unavailable Unavailable Essence, Nell Cortes MD Unavailable Unavailable Essence, Nell Cortes MD Unavailable Unavailable Essence, Nell Cortes MD Unavailable Unavailable Essence, Nell Cortes MD Unavailable Unavailable Essence, Nell Cortes MD Unavailable Unavailable Essence, Nell Cortes MD Unavailable Unavailable Essence, Nell Cortes MD Unavailable Unavailable Essence, Nell Cortes MD Unavailable Unavailable Essence, Nell Cortes MD Unavailable Unavailable Essence, Nell Cortes MD Unavailable Unavailable Essence, Nell Cortes MD Unavailable Unavailable Essence, Nell Cortes MD Unavailable Unavailable Essence, Nell Cortes MD Unavailable Unavailable Essence, Nell Cortes MD Unavailable Unavailable Essence, Nell Cortes MD Unavailable Unavailable Essence, Nell Cortes MD Unavailable Unavailable Essence, Nell Cortes MD Unavailable Unavailable Essence, Nell Cortes MD Unavailable Unavailable Essence, Nell Cortes MD Unavailable Unavailable Essence, Nell Cortes MD Unavailable Unavailable Essence, Nell Cortes MD Unavailable Unavailable Essence, Nell Cortes MD Unavailable Unavailable Essence, Nell Cortes MD Unavailable Unavailable Essence, Nell Cortes MD Unavailable Unavailable Essence, Nell Cortes MD Unavailable Unavailable Essence, Nell Cortes MD Unavailable Unavailable Essence, Nell Cortes MD Unavailable Unavailable Essence, Nell Cortes MD Unavailable Unavailable Essence, Nell Cortes MD Unavailable Unavailable Essence, Nell Cortes MD Unavailable Unavailable Essence, Nell Cortes MD Unavailable Unavailable Essence, Nell Cortes MD Unavailable Unavailable Essence, Nell Cortes MD Unavailable Unavailable Essence, Nell Cortes MD Unavailable Unavailable Essence, Nell Cortes MD Unavailable Unavailable Essence, Nell Cortes MD Unavailable Unavailable Essence, Nell Cortes MD Unavailable Unavailable Essence, Nell Cortes MD Unavailable Unavailable Essence, Nell Cortes MD Unavailable Unavailable Essence, A Rashawn FAIR Unavailable Unavailable Essence, A Rashawn FAIR Unavailable Unavailable Essence, A Rashawn FAIR Unavailable Unavailable Essence, A Rashawn FAIR Unavailable Unavailable Essence, A Rashawn FAIR Unavailable Unavailable Essence, A Rashawn FAIR Unavailable Unavailable Essence, A Rashawn FAIR Unavailable Unavailable Essence, A Rashawn FAIR Unavailable Unavailable Essence, A Rashawn FAIR Unavailable Unavailable Essence, A Rashawn FAIR Unavailable Unavailable Essence, A Rashawn FAIR Unavailable Unavailable Essence, A Rashawn FAIR Unavailable Unavailable Essence, A Rashawn FAIR Unavailable Unavailable Essence, A Rashawn FAIR Unavailable Unavailable Essence, A Rashawn FAIR Unavailable Unavailable Essence, A Rashawn FAIR Unavailable Unavailable Essence, A Rashawn FAIR Unavailable Unavailable Essence, A Rashawn FAIR Unavailable Unavailable Essence, A Rashawn FAIR Unavailable Unavailable Essence, A Rashawn FAIR Unavailable Unavailable Essence, A Rashawn FAIR Unavailable Unavailable Essence, A Rashawn FAIR Unavailable Unavailable Essence, A Rashawn FAIR Unavailable Unavailable Essence, A Rashawn FAIR Unavailable Unavailable Essence, A Rashawn FAIR Unavailable Unavailable Essence, A Rashawn FAIR Unavailable Unavailable Essence, A Rashawn FAIR Unavailable Unavailable Essence, A Rashawn FAIR Unavailable Unavailable Essence, A Rashawn FAIR Unavailable Unavailable Essence, A Rashawn FAIR Unavailable Unavailable Essence, A Rashawn FAIR Unavailable Unavailable Essence, A Rashawn FAIR Unavailable Unavailable Essence, A Rashawn FAIR Unavailable Unavailable Essence, A Rashawn FAIR Unavailable Unavailable Essence, A Rashawn FAIR Unavailable Unavailable Essence, A Rashawn FAIR Unavailable Unavailable Essence, A Rashawn FAIR Unavailable Unavailable Essence, A Rashawn FAIR Unavailable Unavailable Essence, A Rashawn FAIR Unavailable Unavailable Essence, A Rashawn FAIR Unavailable Unavailable Essence, A Rashawn FAIR Unavailable Unavailable Essence, A Rashawn FAIR Unavailable Unavailable Essence, A Rashawn FAIR Unavailable Unavailable Essence, A Rashawn FAIR Unavailable Unavailable Essence, A Rashawn FAIR Unavailable Unavailable Essence, A Rashawn FAIR Unavailable Unavailable Essence, A Rashawn FAIR Unavailable Unavailable Essence, A Rashawn FAIR Unavailable Unavailable Essence, A Rashawn FAIR Unavailable Unavailable Essence, A Rashawn FAIR Unavailable Unavailable Essence, A Rashawn FAIR Unavailable Unavailable Essence, A Rashawn FAIR Unavailable Unavailable Essence, A Rashawn FAIR Unavailable Unavailable Essence, A Rashawn FAIR Unavailable Unavailable Essence, A Rashawn FAIR Unavailable Unavailable Essence, A Rashawn FAIR Unavailable Unavailable Essence, A Rashawn FAIR Unavailable Unavailable Essence, A Rashawn FAIR Unavailable Unavailable Essence, A Rashawn FAIR Unavailable Unavailable Essence, A Rashawn FAIR Unavailable Unavailable Essence, A Rashawn FAIR Unavailable Unavailable Essence, A Rashawn FAIR Unavailable Unavailable Essence, A Rashawn MD Unavailable Unavailable EGORHO, F GWEN FPMHNP Unavailable Unavailable EGORHO, F GWEN FPMHNP Unavailable Unavailable EGORHO, F GWEN FPMHNP Unavailable Unavailable EGORHO, F GWEN FPMHNP Unavailable Unavailable EGORHO, F GWEN FPMHNP Unavailable Unavailable EGORHO, F GWEN FPMHNP Unavailable Unavailable EGORHO, F GWEN FPMHNP Unavailable Unavailable EGORHO, F GWEN FPMHNP Unavailable Unavailable QAMAR, KRANTHI JUVE PA-C Unavailable Unavailable QAMAR, KRANTHI JUVE PA-C Unavailable Unavailable QAMAR, KRANTHI JUVE PA-C Unavailable Unavailable QAMAR, KRANTHI JUVE PA-C Unavailable Unavailable QAMAR, KRANTHI JUVE PA-C Unavailable Unavailable QAMAR, KRANTHI JUVE PA-C Unavailable Unavailable QAMAR, KRANTHI JUVE PA-C Unavailable Unavailable QAMAR, KRANTHI JUVE PA-C Unavailable Unavailable QAMAR, KRANTHI JUVE PA-C Unavailable Unavailable QAMAR, KRANTHI JUVE PA-C Unavailable Unavailable Martin Sibley MD Unavailable Unavailable Martin Sibley MD Unavailable Unavailable Martin Sibley MD Unavailable Unavailable Martin Sibley MD Unavailable Unavailable Re-disclosure Warning The records that you are about to access may contain information from federally-assisted alcohol or drug abuse programs. If such information is present, then the following federally mandated warning applies: This information has been disclosed to you from records protected by federal confidentiality rules (42 CFR part 2). The federal rules prohibit you from making any further disclosure of this information unless further disclosure is expressly permitted by the written consent of the person to whom it pertains or as otherwise permitted by 42 CFR part 2. A general authorization for the release of medical or other information is NOT sufficient for this purpose. The Federal rules restrict any use of the information to criminally investigate or prosecute any alcohol or drug abuse patient.The records that you are about to access may contain highly sensitive health information, the redisclosure of which is protected by Article 27-F of the [facility] Public Health law. If you continue you may have access to information: Regarding HIV / AIDS; Provided by facilities licensed or operated by the [facility] Office of Mental Health; or Provided by the [facility] Office for People With Developmental Disabilities. If such information is present, then the following [facility] mandated warning applies: This information has been disclosed to you from confidential records which are protected by state law. State law prohibits you from making any further disclosure of this information without the specific written consent of the person to whom it pertains, or as otherwise permitted by law. Any unauthorized further disclosure in violation of state law may result in a fine or intermediate sentence or both. A general authorization for the release of medical or other information is NOT sufficient authorization for further disc losure. Allergies and Adverse Reactions Type Description Substance Reaction Status Data Source(s ) Propensity to adverse reactions NO ALLERGIES ON FILE NO ALLERGIES ON FILE [facility] Propensity to adverse reactions LEVONORGESTREL-ETHINYL ESTRA D LEVONORGESTREL- ETHINYL ESTRAD Unknown [facility] Propensity to adverse reactions BEE VENOM PROTEIN (HONEY BEE) Ho huseyin bee venom Unknown [facility] Propensity to adverse reactions RIZATRIPTAN rizatriptan Swelling High [facility] Propensity to adverse reactions AMITRIPTYLINE Amitriptyline Swelling High [facility] Allergy to substance Severe Amitriptyline Hallucinations DAVID ([facility]) Allergy to substance Severe Amitriptyline Hallucinations DAVID ([facility]) Family History Family Member Name Family Member Gender Family Member Status Date o f Status Description Data Source(s) Unknown Female Condition Family Member Diabetes B on [facility] Unknown Female Condition Family Member Cancer B on [facility] Unknown Female Condition Family Member Hypertension Bon [facility] Unknown Female Problem MEDENT ([facility]) Encounters Encounter Providers Location Date Indications Data Source(s ) [facility] 10:00: 00 AM T [facility] Outpatient Attender: Ragini Watts 05/20/2021 01:00:00 PM EDT [facility] 05/16/2021 12:00:00 AM EDT eCW1 ([facility]) Outpatient Attender: GWEN DEVIRUTH 05/05/2021 02:00: 00 PM EDT [facility]patient [facility] 05/05/2021 12:00:00 AM EDT eCW1 ([facility]) [facility] 05/05/2021 12:00:00 AM EDT eCW1 ([facility]) INPATIENT Attender: Jonn Conrad MDAttflores leo: CAMILA KRUEGER DOAttender: SANDEEP BAZAN MDAdmitter: SANDEEP BAZAN MDConsultant: Kashif Aguilar JrConsultant: Rashawn Lowry MD 5F-[id number] 05/01/2021 10:26:00 PM EDT - 05/04/2021 04:32:00 PM EDT [facility] Patient discharged. INPATIENT Attender: JEFE Reardon leo: Jonn Conrad MDAttender: Cari De Souza MDAttender: CARI DE SOUZA MDAdmitter: Jonn Conrad MDConsultant: Rashawn Lowry MDConsultant: ANAYELI BADILLO IIConsultant: ANAYELI BADILLO II MDConsultant: Kevin Cervantes 5F-1E 04/25/2021 12:14:00 PM EDT - 04/28/2021 06:00:00 PM EDT [facility] Patient discharged. Emergency Attender: MADIHA PERLA PAReferrer: Ventura Gomez PA-C EMERGENCY ROOM-ER 04/24/2021 11:49:00 PM EDT - 04/25/2021 09:55:00 AM EDT [facility] Patient discharged. Outpatient Attender: ASHOK DEAL 04/20/2021 04:35:45 PM EDT [facility] Outpatient [facility] 04/15/2021 12:00:00 AM EDT eCW1 ([facility]) Emergency Attender: Harley Sherwoodferrer: Scott Gomez PA-C EMERGENCY ROOM-ER 04/12/2021 09:19:00 PM EDT - 04/13/2021 01:29:00 AM EDT [facility] Patient discharged. Outpatient Attender: Harley AGUILARCConsultant: [facility] [id number] 04/12/2021 09:06:00 PM EDT [facility] Outpatient Attender: GWEN JEAN FPRUTH 04/09/2021 10:00: 00 AM EDT [facility] David Willard MD: [id number], [place] [address], Ph. Attender: David Willard MD MT - [facility] - [facility] 04/07/2021 12:00:00 AM EDT DAVID ([facility]) David Willard MD: [id number], [place] [address], Ph. [phone] Attender: David Willard MD MT - [facility] - [facility] 04/02/2021 12:00:00 AM EDT DAVID ([facility]) [facility]patient [facility] 03/28/2021 12:00:00 AM EDT eCW ([facility]) [facility]patient [facility] 03/28/2021 12:00:00 AM EDT eCW ([facility]) INPATIENT Attender: FREDERICK GOODWIN MD [id number] 03/26/2021 05:43:40 PM EDT [facility] INPATIENT Attender: BRAYAN ALLISON MD 5F-GX 03/25/2021 09:53:3 9 AM EDT [facility] INPATIENT Attender: CARI DE SOUZA MDA ttender: Cari De Souza MDAttender: WINSTON QUIROGA MDAttender: Jonn Conrad MDAttender: MARTIN SIBLEY MDAttender: Martin Sibley MDAdmitter: Jonn Conrad MDConsultant: Rashawn Lowry MDConsultant: Kevin Cervantes 5F-1E 03/23/2021 03:25:00 PM E DT - 03/27/2021 04:11:00 PM EDT [facility] Patient discharged. Outpatient [id number] 03/22/2021 08:11:00 PM EDT [facility] Emergency Attender: WILLIE Lozada: Scott Gomez PA-C EMERGENCY ROOM-ER 03/22/2021 03:34:00 PM EDT - 03/23/2021 12:40:00 PM EDT [facility] Patient discharged. Outpatient Attender: GWEN JEAN FPRUTH 03/19/2021 09:49: 00 AM EDT [facility] Outpatient Attender: Abida Sherwoodferrer: Abida Gomez PA-C 03/19/2021 08:00:00 AM EDT [facility] David Willard MD: [id number], [place] [address], Ph. Attender: David Willard MD MT - [facility] - Main Office 03/18/2021 12:00:00 AM EDT DAVID ([facility]) David Willard MD: [address], [address], [place] [address], Ph. Attender: David Willard MD MT - [facility] - [facility] 03/18/2021 12:00:00 AM EDT DAVID ([facility]) Preadmit Attender: Abida Gomez PA-C 03/14/2021 08:00 :00 AM EDT [facility] Outpatient [facility] 03/12/2021 12:00:00 AM EDT eCW1 ([facility]) Outpatient [facility] 03/11/2021 12:00:00 AM EDT eCW1 ([facility]) Outpatient Attender: GWEN CHINReferrer: Ventura Gomez PA-C EMERGENCY ROOM-LAB 03/10/2021 03:46:00 PM EDT - 03/10/2021 03:46:00 PM EDT [facility] Outpatient Attender: Abida Sherwoodferrer: Abida Gomez PA-C EMERGENCY ROOM-RIVCLI 03/10/2021 02:37:00 PM EDT - 03/10/2021 02:37:00 PM EDT [facility] Outpatient [facility] 03/10/2021 12:00:00 AM EDT eCW1 ([facility]) Outpatient [facility] 03/03/2021 12:00:00 AM EDT eCW1 ([facility]) Outpatient Attender: GWEN CHIN 02/13/2021 01:00: 00 PM EDT [facility] Outpatient [facility] 02/11/2021 12:00:00 AM EDT eCW1 ([facility]) Outpatient [facility] 02/04/2021 12:00:00 AM EDT eCW1 ([facility]) Outpatient Attender: JUVE FOOTE PA-C 01/31/2021 11:00:00 AM EDT [facility] Outpatient [facility] 01/30/2021 12:00:00 AM EDT eCW1 ([facility]) [facility]patient [facility] 01/30/2021 12:00:00 AM EDT eCW1 ([facility]) Outpatient Attender: Pam Daniels: FABIEN [facility] EMERGENCY ROOM-[facility] 01/29/2021 01:00:00 PM EDT - 01/29/2021 01:00:00 PM EDT [facility] Outpatient Attender: Ragini Watts 01/29/2021 10:00:00 AM EDT [facility] Outpatient [facility] 01/29/2021 12:00:00 AM EDT eCW1 ([facility]) [facility]patient [facility] 01/22/2021 12:00:00 AM EDT eCW1 ([facility]) Outpatient [facility] 01/21/2021 12:00:00 AM EDT eCW1 ([facility]) Outpatient [facility] 01/16/2021 12:00:00 AM EDT eCW1 ([facility]) Outpatient Attender: Pam Daniels: FABIEN SONI RPA-C EMERGENCY ROOM-RIVCLI 01/15/2021 08:03:00 AM EDT - 01/15/2021 08:03:00 AM EDT [facility] Outpatient [facility] 01/15/2021 12:00:00 AM EDT eCW1 ([facility]) Outpatient [facility] 01/15/2021 12:00:00 AM EDT eCW1 ([facility]) Emergency Attender: WILLIE Lozada: [facility] EMERGENCY ROOM-ER 06/04/2019 12:15:00 PM EDT - 06/04/2019 03:18:00 PM [facility] Patient discharged. Emergency Attender: DENNISE CISNEROSeferrer: ALEK HEART EMERGENCY ROOM-ER 05/10/2019 06:22:00 AM EDT - 05/10/2019 11:00:00 AM [facility] Patient discharged. Emergency Attender: MADIHA MANUEL EMERGENCY ROOM-ER 01/17/2018 12:13:00 AM EDT - 01/17/2018 02:40:00 AM [facility] Emergency Attender: MADIHA MANUEL EMERGENCY ROOM-ER 11/22/2017 09:40:00 PM EDT - 11/23/2017 02:25:00 AM [facility] Emergency Attender: WILLIE MANUEL EMERGENCY ROOM-ER 11/07 02:49:00 PM EDT - 11/19/2017 05:38:00 PM [facility] Emergency Attender: DENNISE MANUEL EMERGENCY ROOM-ER 08:49:00 PM EST - 09/30/2017 12:27:00 AM [facility] Outpatient Attender: FABIEN HEART EMERGENCY ROOM-LAB 0 08/25/2017 04:16:00 PM EST - 08/25/2017 04:16:00 PM [facility] Emergency Attender: OSKAR MANUEL EMERGENCY ROOM- ER 04/13/2017 09:15:00 PM EDT - 04/14/2017 01:54:00 AM [facility] Emergency Attender: DENNISE MANUEL EMERGENCY ROOM-ER 09:02:00 PM EDT - 03/21/2017 01:55:00 AM [facility] Emergency Attender: MADIHA MANUEL EMERGENCY ROOM-ER 12/30/2016 09:12:00 PM EDT - 12/31/2016 01:50:00 AM [facility] Medications Medication Brand Name Start Date Product Form Dose Route Admi nistrative Instructions Pharmacy Instructions Status Indications Reaction Description Data Source(s) Acetaminophen 325 MG / Hydrocodone Nury trate 7.5 MG Oral Tablet HYDROcodone- acetaminophen (NORCO) 7.5-325 mg per tablet HYDROcodone-acetaminophen (NORCO) 7.5-325 mg per tablet 05/04/2021 12:00:00 AM EDT 1 {tbl} oral active Take 1 tablet by mouth every 6 (six) hours if needed for moderate pain or severe pain for up to 3 doses. [facility] Misoprostol 0.2 MG Oral Tablet miSOPROStoL (CYTOTEC) 2 00 mcg tablet miSOPROStoL (CYTOTEC) 200 mcg tablet 05/04/2021 12:00:00 AM EDT 200 ug oral active Take 1 tablet (200 mcg total) by mouth 4 (four) times a day. [facility] Methylcellulose 500 MG Oral Tablet methy lcellulose, laxative, (CITRUCEL) 500 mg tablet methylcellulose, laxative, (CITRUCEL) 500 mg tablet 12:00:00 AM EDT 1000 mg oral aborted Take 2 t ablets (1,000 mg total) by mouth 2 (two) times a day. [facility] Lactobacillus rhamnosus GG [id number] U NT Oral Capsule lactobacillus rhamnosus (PROBIOTIC EXTRA STRENGTH) 20 billion cell capsule lactobacillus rhamnosus (PROBIOTIC EXTRA STRENGTH) 20 billion cell capsule 03/27/2021 12:00:00 AM EDT 1 {capsule} oral aborted Take 1 capsule by [facility] 1 (one) time each day. [facility] brexpiprazole 1 MG Oral Tablet [Rexulti] Rexulti 1 MG Rexult i 1 MG 03/19/2021 12:00:00 AM EDT 1.0 {tablet} active Re xulti 1 MG eCW1 ([facility]) brexpiprazole 2 MG Oral Tablet [Rexulti] Rexulti 2 MG Rexult i 2 MG 03/19/2021 12:00:00 AM EDT 1.0 {tablet} active Re xulti 2 MG eCW1 ([facility]) brexpiprazole 1 MG Oral Tablet [Rexulti] Rexulti 1 MG Rexult i 1 MG 03/19/2021 12:00:00 AM EDT 1.0 {tablet} active Re xulti 1 MG eCW1 ([facility]) brexpiprazole 1 MG Oral Tablet [Rexulti] Rexulti 1 MG Rexult i 1 MG 03/19/2021 12:00:00 AM EDT 1.0 {tablet} active Re xulti 1 MG eCW1 ([facility]) brexpiprazole 1 MG Oral Tablet [Rexulti] Rexulti 1 MG Rexult i 1 MG 03/19/2021 12:00:00 AM EDT 1.0 {tablet} active Re xulti 1 MG eCW1 ([facility]) brexpiprazole 2 MG Oral Tablet [Rexulti] Rexulti 2 MG Rexult i 2 MG 03/19/2021 12:00:00 AM EDT 1.0 {tablet} active Re xulti 2 MG eCW1 ([facility]) brexpiprazole 2 MG Oral Tablet [Rexulti] Rexulti 2 MG Rexult i 2 MG 03/19/2021 12:00:00 AM EDT 1.0 {tablet} active Re xulti 2 MG eCW1 ([facility]) brexpiprazole 1 MG Oral Tablet [Rexulti] Rexulti 1 MG Rexult i 1 MG 03/19/2021 12:00:00 AM EDT 1.0 {tablet} active Re xulti 1 MG eCW1 ([facility]) [place] Carbonate 300 MG Oral Capsule [place] Carbonate 300 MG 02/13/2021 12:00:00 AM EDT 1.0 {capsule} suspended [place] Carbonate 300 MG eCW1 ([facility]) [place] Carbonate 300 MG Oral Capsule [place] Carbonate 300 MG 02/13/2021 12:00:00 AM EDT 1.0 {capsule} suspended [place] Carbonate 300 MG eCW1 ([facility]) Prazosin 1 MG Oral Capsule Prazosin HCl 1 MG Prazosin HCl 1 MG 02/13/2021 12:00:00 AM EDT 1.0 {capsule_at_bedtime} active Prazosin HCl 1 MG eCW1 ([facility]) [place] Carbonate 300 MG Oral Capsule [place] Carbonate 300 MG 02/13/2021 12:00:00 AM EDT 1.0 {capsule} suspended [place] Carbonate 300 MG eCW1 ([facility]) Prazosin 1 MG Oral Capsule Prazosin HCl 1 MG Prazosin HCl 1 MG 02/13/2021 12:00:00 AM EDT 1.0 {capsule_at_bedtime} active Prazosin HCl 1 MG eCW1 ([facility]) [place] Carbonate 300 MG Oral Capsule [place] Carbonate 300 MG 02/13/2021 12:00:00 AM EDT 1.0 {capsule} active L ithium Carbonate 300 MG eCW1 ([facility]) [place] Carbonate 300 MG Oral Capsule [place] Carbonate 300 MG 02/13/2021 12:00:00 AM EDT 1.0 {capsule} active L ithium Carbonate 300 MG eCW1 ([facility]) Prazosin 1 MG Oral Capsule Prazosin HCl 1 MG Prazosin HCl 1 MG 02/13/2021 12:00:00 AM EDT 1.0 {capsule_at_bedtime} active Prazosin HCl 1 MG eCW1 ([facility]) [place] Carbonate 300 MG Oral Capsule [place] Carbonate 300 MG 02/13/2021 12:00:00 AM EDT 1.0 {capsule} suspended [place] Carbonate 300 MG eCW1 ([facility]) Prazosin 1 MG Oral Capsule Prazosin HCl 1 MG Prazosin HCl 1 MG 02/13/2021 12:00:00 AM EDT 1.0 {capsule_at_bedtime} active Prazosin HCl 1 MG eCW1 ([facility]) Prazosin 1 MG Oral Capsule Prazosin HCl 1 MG Prazosin HCl 1 MG 02/13/2021 12:00:00 AM EDT 1.0 {capsule_at_bedtime} active Prazosin HCl 1 MG eCW1 ([facility]) Prazosin 1 MG Oral Capsule Prazosin HCl 1 MG Prazosin HCl 1 MG 02/13/2021 12:00:00 AM EDT 1.0 {capsule_at_bedtime} active Prazosin HCl 1 MG eCW1 ([facility]) [place] Carbonate 300 MG Oral Capsule [place] Carbonate 300 MG 02/13/2021 12:00:00 AM EDT 1.0 {capsule} suspended [place] Carbonate 300 MG eCW1 ([facility]) Prazosin 1 MG Oral Capsule Prazosin HCl 1 MG Prazosin HCl 1 MG 02/13/2021 12:00:00 AM EDT 1.0 {capsule_at_bedtime} active Prazosin HCl 1 MG eCW1 ([facility]) [place] Carbonate 300 MG Oral Capsule [place] Carbonate 300 MG 02/13/2021 12:00:00 AM EDT 1.0 {capsule} suspended [place] Carbonate 300 MG eCW1 ([facility]) Prazosin 1 MG Oral Capsule Prazosin HCl 1 MG Prazosin HCl 1 MG 02/13/2021 12:00:00 AM EDT 1.0 {capsule_at_bedtime} active Prazosin HCl 1 MG eCW1 ([facility]) Prazosin 1 MG Oral Capsule Prazosin HCl 1 MG Prazosin HCl 1 MG 02/13/2021 12:00:00 AM EDT 1.0 {capsule_at_bedtime} active Prazosin HCl 1 MG eCW1 ([facility]) Prazosin 1 MG Oral Capsule Prazosin HCl 1 MG Prazosin HCl 1 MG 02/13/2021 12:00:00 AM EDT 1.0 {capsule_at_bedtime} active Prazosin HCl 1 MG eCW1 ([facility]) [place] Carbonate 300 MG Oral Capsule [place] Carbonate 300 MG 02/13/2021 12:00:00 AM EDT 1.0 {capsule} suspended [place] Carbonate 300 MG eCW1 ([facility]) [place] Carbonate 300 MG Oral Capsule [place] Carbonate 300 MG 02/13/2021 12:00:00 AM EDT 1.0 {capsule} suspended [place] Carbonate 300 MG eCW1 ([facility]) Prazosin 1 MG Oral Capsule Prazosin HCl 1 MG Prazosin HCl 1 MG 02/13/2021 12:00:00 AM EDT 1.0 {capsule_at_bedtime} active Prazosin HCl 1 MG eCW1 ([facility]) [place] Carbonate 300 MG Oral Capsule [place] Carbonate 300 MG 02/13/2021 12:00:00 AM EDT 1.0 {capsule} suspended [place] Carbonate 300 MG eCW1 ([facility]) 0.3 ML Epinephrine 1 MG/ML Auto-Injector [Epipen] EpiP en 2-Jacquelyn 0.3 MG/0.3ML EpiPen 2-Jacquelyn 0.3 MG/0.3ML 01/29/2021 12:00:00 AM EDT active EpiPen 2-Jacquelyn 0.3 MG/0.3ML eCW1 ([facility]) 0.3 ML Epinephrine 1 MG/ML Auto-Injector [Epipen] EpiP en 2-Jacquelyn 0.3 MG/0.3ML EpiPen 2-Jacquelyn 0.3 MG/0.3ML 01/29/2021 12:00:00 AM EDT active EpiPen 2-Jacquelyn 0.3 MG/0.3ML eCW1 ([facility]) Levothyroxine Sodium 0.025 MG Oral Tablet Levothyroxin e Sodium 25 MCG Levothyroxine Sodium 25 MCG 01/29/2021 12:00:00 AM EDT active Levothyroxine Sodium 25 MCG eCW1 ([facility]) Levothyroxine Sodium 0.05 MG Oral Tablet Levothyroxine Sodium 50 MCG Levothyroxine Sodium 50 MCG 01/29/2021 12:00:00 AM EDT active Levothyroxine Sodium 50 MCG eCW1 ([facility] [place]) Levothyroxine Sodium 0.025 MG Oral Tablet Levothyroxin e Sodium 25 MCG Levothyroxine Sodium 25 MCG 01/29/2021 12:00:00 AM EDT active Levothyroxine Sodium 25 MCG eCW1 ([facility]) Levothyroxine Sodium 0.025 MG Oral Tablet Levothyroxin e Sodium 25 MCG Levothyroxine Sodium 25 MCG 01/29/2021 12:00:00 AM EDT active Levothyroxine Sodium 25 MCG eCW1 ([facility]) 0.3 ML Epinephrine 1 MG/ML Auto-Injector [Epipen] EpiP en 2-Jacquelyn 0.3 MG/0.3ML EpiPen 2-Jacquelyn 0.3 MG/0.3ML 01/29/2021 12:00:00 AM EDT active EpiPen 2-Jacquelyn 0.3 MG/0.3ML eCW1 ([facility]) 0.3 ML Epinephrine 1 MG/ML Auto-Injector [Epipen] EpiP en 2-Jacquelyn 0.3 MG/0.3ML EpiPen 2-Jacquelyn 0.3 MG/0.3ML 01/29/2021 12:00:00 AM EDT active EpiPen 2-Jacquelyn 0.3 MG/0.3ML eCW1 ([facility]) Levothyroxine Sodium 0.025 MG Oral Tablet Levothyroxin e Sodium 25 MCG Levothyroxine Sodium 25 MCG 01/29/2021 12:00:00 AM EDT active Levothyroxine Sodium 25 MCG eCW1 ([facility]) 0.3 ML Epinephrine 1 MG/ML Auto-Injector [Epipen] EpiP en 2-Jacquelyn 0.3 MG/0.3ML EpiPen 2-Jacquelyn 0.3 MG/0.3ML 01/29/2021 12:00:00 AM EDT active EpiPen 2-Jacquelyn 0.3 MG/0.3ML eCW1 ([facility]) 0.3 ML Epinephrine 1 MG/ML Auto-Injector [Epipen] EpiP en 2-Jacquelyn 0.3 MG/0.3ML EpiPen 2-Jacquelyn 0.3 MG/0.3ML 01/29/2021 12:00:00 AM EDT active EpiPen 2-Jacquelyn 0.3 MG/0.3ML eCW1 ([facility]) 0.3 ML Epinephrine 1 MG/ML Auto-Injector [Epipen] EpiP en 2-Jacquelyn 0.3 MG/0.3ML EpiPen 2-Jacquelyn 0.3 MG/0.3ML 01/29/2021 12:00:00 AM EDT active EpiPen 2-Jacquelyn 0.3 MG/0.3ML eCW1 ([facility]) 0.3 ML Epinephrine 1 MG/ML Auto-Injector [Epipen] EpiP en 2-Jacquelyn 0.3 MG/0.3ML EpiPen 2-Jacquelyn 0.3 MG/0.3ML 01/29/2021 12:00:00 AM EDT active EpiPen 2-Jacquelyn 0.3 MG/0.3ML eCW1 ([facility] [place]) 0.3 ML Epinephrine 1 MG/ML Auto-Injector [Epipen] EpiP en 2-Jacquelyn 0.3 MG/0.3ML EpiPen 2-Jacquelyn 0.3 MG/0.3ML 01/29/2021 12:00:00 AM EDT active EpiPen 2-Jacquelyn 0.3 MG/0.3ML eCW1 ([facility]) 0.3 ML Epinephrine 1 MG/ML Auto-Injector [Epipen] EpiP en 2-Jacquelyn 0.3 MG/0.3ML EpiPen 2-Jacquelyn 0.3 MG/0.3ML 01/29/2021 12:00:00 AM EDT active EpiPen 2-Jacquelyn 0.3 MG/0.3ML eCW1 ([facility]) 0.3 ML Epinephrine 1 MG/ML Auto-Injector [Epipen] EpiP en 2-Jacquelyn 0.3 MG/0.3ML EpiPen 2-Jacquelyn 0.3 MG/0.3ML 01/29/2021 12:00:00 AM EDT active EpiPen 2-Jacquelyn 0.3 MG/0.3ML eCW1 ([facility]) Levothyroxine Sodium 0.05 MG Oral Tablet Levothyroxine Sodium 50 MCG Levothyroxine Sodium 50 MCG 01/29/2021 12:00:00 AM EDT active Levothyroxine Sodium 50 MCG eCW1 ([facility] [place]) 0.3 ML Epinephrine 1 MG/ML Auto-Injector [Epipen] EpiP en 2-Jacquelyn 0.3 MG/0.3ML EpiPen 2-Jacquelyn 0.3 MG/0.3ML 01/29/2021 12:00:00 AM EDT active EpiPen 2-Jacquelyn 0.3 MG/0.3ML eCW1 ([facility]) 0.3 ML Epinephrine 1 MG/ML Auto-Injector [Epipen] EpiP en 2-Jacquelyn 0.3 MG/0.3ML EpiPen 2-Jacquelyn 0.3 MG/0.3ML 01/29/2021 12:00:00 AM EDT active EpiPen 2-Jacquelyn 0.3 MG/0.3ML eCW1 ([facility] [place]) Levothyroxine Sodium 0.025 MG Oral Tablet Levothyroxin e Sodium 25 MCG Levothyroxine Sodium 25 MCG 01/29/2021 12:00:00 AM EDT active Levothyroxine Sodium 25 MCG eCW1 ([facility] [place]) 0.3 ML Epinephrine 1 MG/ML Auto-Injector [Epipen] EpiP en 2-Jacquelyn 0.3 MG/0.3ML EpiPen 2-Jacquelyn 0.3 MG/0.3ML 01/29/2021 12:00:00 AM EDT active EpiPen 2-Jacquelyn 0.3 MG/0.3ML eCW1 ([facility] [place]) Levothyroxine Sodium 0.05 MG Oral Tablet Levothyroxine Sodium 50 MCG Levothyroxine Sodium 50 MCG 01/29/2021 12:00:00 AM EDT active Levothyroxine Sodium 50 MCG eCW1 ([facility] [place]) Levothyroxine Sodium 0.025 MG Oral Tablet Levothyroxin e Sodium 25 MCG Levothyroxine Sodium 25 MCG 01/29/2021 12:00:00 AM EDT active Levothyroxine Sodium 25 MCG eCW1 ([facility] [place]) Levothyroxine Sodium 0.05 MG Oral Tablet Levothyroxine Sodium 50 MCG Levothyroxine Sodium 50 MCG 01/29/2021 12:00:00 AM EDT active Levothyroxine Sodium 50 MCG eCW1 ([facility]) 0.3 ML Epinephrine 1 MG/ML Auto-Injector [Epipen] EpiP en 2-Jacquelyn 0.3 MG/0.3ML EpiPen 2-Jacquelyn 0.3 MG/0.3ML 01/29/2021 12:00:00 AM EDT active EpiPen 2-Jacquelyn 0.3 MG/0.3ML eCW1 ([facility] [place]) Levothyroxine Sodium 0.05 MG Oral Tablet Levothyroxine Sodium 50 MCG Levothyroxine Sodium 50 MCG 01/29/2021 12:00:00 AM EDT active Levothyroxine Sodium 50 MCG eCW1 ([facility] [place]) Levothyroxine Sodium 0.05 MG Oral Tablet Levothyroxine Sodium 50 MCG Levothyroxine Sodium 50 MCG 01/29/2021 12:00:00 AM EDT active Levothyroxine Sodium 50 MCG eCW1 ([facility] [place]) Levothyroxine Sodium 0.05 MG Oral Tablet Levothyroxine Sodium 50 MCG Levothyroxine Sodium 50 MCG 01/29/2021 12:00:00 AM EDT active Levothyroxine Sodium 50 MCG eCW1 ([facility] [place]) Levothyroxine Sodium 0.05 MG Oral Tablet Levothyroxine Sodium 50 MCG Levothyroxine Sodium 50 MCG 01/29/2021 12:00:00 AM EDT active Levothyroxine Sodium 50 MCG eCW1 ([facility] Levothyroxine Sodium 0.025 MG Oral Tablet Levothyroxin e Sodium 25 MCG Levothyroxine Sodium 25 MCG 01/29/2021 12:00:00 AM EDT active Levothyroxine Sodium 25 MCG eCW1 ([facility] [place]) tizanidine 4 MG Oral Capsule tizanidine (ZANAFLEX) 4 M G capsule tizanidine (ZANAFLEX) 4 MG capsule 11/20/2019 12:00:00 AM EDT 4 mg Oral completed Right leg paresthesiasChronic right-sided low back pain with right-sided sciatica Take 1 capsule by mouth 3 (three) times daily. [facility] Right leg paresthesias Chronic right-sided low back pain with r ight-sided sciatica Take 1 capsule by mouth 3 (three) times daily. Misoprostol 0.2 MG Oral Tablet miSOPROStol 200 MCG Ora l Tablet (CYTOTEC) miSOPROStol 200 MCG Oral Tablet (CYTOTEC) 08/04/2019 12:00:00 AM EST 200 ug Oral active Take 1 tablet by anna th every 6 (six) hours [facility], Skin [facility] Nails Advanced co mpleted Hair, Skin and Nails Advanced DAVID ([facility]) quetiapine 25 MG Oral Tablet [Seroquel] Seroquel 25 mg tablet Take 1 tablet twice a day by oral route. Seroquel 25 mg tablet Take 1 tablet twic e a day by oral route. 1 completed quetiapine 25 MG Oral Tablet [Seroquel] DAVID ([facility]) OneTouch Delica Lancets completed OneTouch Delica Lancets DAVID ([facility]) One Touch II Test strips [id number] [facility] One Touch II Test strips DAVID ([facility]) gabapentin 600 MG Oral Tablet gabapentin (NEURONTIN) 6 00 mg tablet gabapentin (NEURONTIN) 600 mg tablet 1200 mg oral aborted Take 1,200 mg by mouth 3 (three) times a day. [facility] ferrous sulfate 325 MG Oral Tablet ferrous sulfate 325 mg (65 mg iron) tablet ferrous sulfate 325 mg (65 mg iron) tablet 325 mg oral aborted Take 325 mg by mouth 1 (one) time each day with breakfast. [facility] One Touch II Test strips [id number] [facility] One Touch II Test strips DAVID ([facility]) [place] Carbonate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 [facility] POCT GLUCOSE METER UNSOLICITED RESULTS <td>POCT GLUCOS E METER UNSOLICITED RESULTS</td><td>Routine</td><td>04/27/2021 11:47 AM EDT</td><td></td><td> </td> 04/27/2021 11:47:00 AM EDT [facility] POCT GLUCOSE METER UNSOLICITED RESULTS <td>POCT GLUCOS E METER UNSOLICITED RESULTS</td><td>Routine</td><td>04/27/2021 5:20 AM EDT</td><td></td><td> </td> 04/27/2021 05:20:00 AM EDT [facility] BLOOD COUNT COMPLETE AUTO&AUTO DIFRNTL WBC COUNT <td>H C CBC W/ DIFFERENTIAL</td><td>Routine</td><td>04/27/2021 4:56 AM EDT</td><td></td><td> </td> 04/27/2021 04:56:00 AM EDT [facility] BASIC METABOLIC PANEL CALCIUM TOTAL <td>BASIC METABOLI C PANEL</td><td>Routine</td><td>04/27/2021 4:56 AM EDT</td><td></td><td> </td> 04/27/2021 04:56:00 AM EDT [facility] POCT GLUCOSE METER UNSOLICITED RESULTS <td>POCT GLUCOS E METER UNSOLICITED RESULTS</td><td>Routine</td><td>04/26/2021 11:48 PM EDT</td><td></td><td> </td> 04/26/2021 11:48:00 PM EDT [facility] POCT GLUCOSE METER UNSOLICITED RESULTS <td>POCT GLUCOS E METER UNSOLICITED RESULTS</td><td>Routine</td><td>04/26/2021 6:48 PM EDT</td><td></td><td> </td> 04/26/2021 06:48:00 PM EDT [facility] POCT GLUCOSE METER UNSOLICITED RESULTS <td>POCT GLUCOS E METER UNSOLICITED RESULTS</td><td>Routine</td><td>04/26/2021 12:04 PM EDT</td><td></td><td> </td> 04/26/2021 12:04:00 PM EDT [facility] POCT GLUCOSE METER UNSOLICITED RESULTS <td>POCT GLUCOS E METER UNSOLICITED RESULTS</td><td>Routine</td><td>04/26/2021 4:57 AM EDT</td><td></td><td> </td> 04/26/2021 04:57:00 AM EDT [facility] BLOOD COUNT COMPLETE AUTO&AUTO DIFRNTL WBC COUNT <td>H C CBC W/ DIFFERENTIAL</td><td>Routine</td><td>04/26/2021 4:36 AM EDT</td><td></td><td> </td> 04/26/2021 04:36:00 AM EDT [facility] MAGNESIUM <td>MAGNESIUM</td><td>Routin e</td><td>04/26/2021 4:36 AM EDT</td><td></td><td> </td> 04/26/2021 04:36:00 AM EDT [facility] COMPREHENSIVE METABOLIC PANEL <td>COMPREHENSIVE METABO LIC PANEL</td><td>Routine</td><td>04/26/2021 4:36 AM EDT</td><td></td><td> </td> 04/26/2021 04:36:00 AM EDT [facility] POCT GLUCOSE METER UNSOLICITED RESULTS <td>POCT GLUCOS E METER UNSOLICITED RESULTS</td><td>Routine</td><td>04/25/2021 11:19 PM EDT</td><td></td><td> </td> 04/25/2021 11:19:00 PM EDT [facility] URNLS DIP STICK/TABLET RGNT AUTO W/O MICROSCOPY <td><c ontent ID="[id number]">URINALYSIS W/MICROSCOPIC & CULTURE IF INDICATED</content></td><td>STAT</td><td>04/25/2021 5:00 PM EDT</td><td></td><td><paragraph styleCode="header">Results for this procedure are in the <content styleCode="[id number]">results section</content>.</paragraph></td> 04/25/2021 05:00:00 PM EDT [facility] PROTHROMBIN TIME <td>PROTHROMBIN TIME NO THER APY OR UNKNOWN</td><td>STAT</td><td>04/25/2021 4:12 PM EDT</td><td></td><td> </td> 04/25/2021 04:12:00 PM EDT [facility] THROMBOPLASTIN TIME PARTIAL PLASMA/WHOLE BLOOD <td>PTT NO THERAPY OR UNKNOWN</td><td>STAT</td><td>04/25/2021 4:12 PM EDT</td><td></td><td> </td> 04/25/2021 04:12:00 PM EDT [facility] BLOOD COUNT COMPLETE AUTO&AUTO DIFRNTL WBC COUNT <td>H C CBC W/ DIFFERENTIAL</td><td>STAT</td><td>04/25/2021 4:12 PM EDT</td><td></td><td> </td> 04/25/2021 04:12:00 PM EDT [facility] TRIIODOTHYRONINE T3 TOTAL TT3 <td>T3</td><td>Routine</ td><td>04/25/2021 4:12 PM EDT</td><td></td><td> </td> 04/25/2021 04:12:00 PM EDT [facility] THYROID STIMULATING HORMONE TSH <td>TSH</td><td>STAT</ td><td>04/25/2021 4:12 PM EDT</td><td></td><td> </td> 04/25/2021 04:12:00 PM EDT [facility] THYROXINE FREE <td>T4, FREE</td><td>Routine </td><td>04/25/2021 4:12 PM EDT</td><td></td><td> </td> 04/25/2021 04:12:00 PM EDT [facility] MAGNESIUM <td>MAGNESIUM</td><td>STAT</ td><td>04/25/2021 4:12 PM EDT</td><td></td><td> </td> 04/25/2021 04:12:00 PM EDT [facility] LIPASE <td>LIPASE</td><td>STAT</td> <td>04/25/2021 4:12 PM EDT</td><td></td><td> </td> 04/25/2021 04:12:00 PM EDT [facility] COMPREHENSIVE METABOLIC PANEL <td>COMPREHENSIVE METABO LIC PANEL</td><td>STAT</td><td>04/25/2021 4:12 PM EDT</td><td></td><td> </td> 04/25/2021 04:12:00 PM EDT [facility] COLONOSCOPY <td>COLONOSCOPY</td><td></td ><td>03/27/2021 10:28 AM EDT</td><td></td><td> </td> 03/27/2021 10:28:41 AM EDT [facility] CUL BACT STOOL AEROBIC ADDL PATHOGENS&ID EA <td>ENTERI C PATHOGENS, PCR (FOR DX INSTEAD OF INITIAL STOOL CULTURE)</td><td>Routine</td><td>03/26/2021 4:15 PM EDT</td><td></td><td> </td> 03/26/2021 04:15:00 PM EDT [facility] BLOOD COUNT COMPLETE AUTOMATED <td>CBC</td><td>Routine </td><td>03/26/2021 4:28 AM EDT</td><td></td><td> </td> 03/26/2021 04:28:00 AM EDT [facility] MAGNESIUM <td>MAGNESIUM</td><td>Routin e</td><td>03/26/2021 4:28 AM EDT</td><td></td><td> </td> 03/26/2021 04:28:00 AM EDT [facility] BASIC METABOLIC PANEL CALCIUM TOTAL <td>BASIC METABOLI C PANEL</td><td>Routine</td><td>03/26/2021 4:28 AM EDT</td><td></td><td> </td> 03/26/2021 04:28:00 AM EDT [facility] UPPER GI ENDOSCOPY <td>UPPER GI ENDOSCOPY</td>< td></td><td>03/25/2021 10:41 AM EDT</td><td></td><td> </td> 03/25/2021 10:41:55 AM EDT [facility] UPPER GI NDSC DX W/WO COLLECTION SPECIMEN <td>EGD (ESOPHAGOGASTRODUODENOSCOPY)</td><td></td><td>03/25/2021 10:06 AM EDT</td><td> GI bleed</td><td></td> 03/25/2021 10:06:00 AM EDT - 03/25/2021 10:37:00 AM ED T [facility] BLOOD COUNT COMPLETE AUTO&AUTO DIFRNTL WBC COUNT <td>H C CBC W/ DIFFERENTIAL</td><td>Routine</td><td>03/25/2021 4:20 AM EDT</td><td></td><td> </td> 03/25/2021 04:20:00 AM EDT [facility] BASIC METABOLIC PANEL CALCIUM TOTAL <td>BASIC METABOLI C PANEL</td><td>Routine</td><td>03/25/2021 4:20 AM EDT</td><td></td><td> </td> 03/25/2021 04:20:00 AM EDT [facility] BLOOD COUNT COMPLETE AUTO&AUTO DIFRNTL WBC COUNT <td>H C CBC W/ DIFFERENTIAL</td><td>Routine</td><td>03/24/2021 4:29 AM EDT</td><td></td><td> </td> 03/24/2021 04:29:00 AM EDT [facility] MAGNESIUM <td>MAGNESIUM</td><td>Routin e</td><td>03/24/2021 4:29 AM EDT</td><td></td><td> </td> 03/24/2021 04:29:00 AM EDT [facility] COMPREHENSIVE METABOLIC PANEL <td>COMPREHENSIVE METABO LIC PANEL</td><td>Routine</td><td>03/24/2021 4:29 AM EDT</td><td></td><td> </td> 03/24/2021 04:29:00 AM EDT [facility] POCT GLUCOSE METER UNSOLICITED RESULTS <td>POCT GLUCOS E METER UNSOLICITED RESULTS</td><td>Routine</td><td>03/23/2021 10:25 PM EDT</td><td></td><td> </td> 03/23/2021 10:25:00 PM EDT [facility] BLOOD COUNT COMPLETE AUTO&AUTO DIFRNTL WBC COUNT <td>H C CBC W/ DIFFERENTIAL</td><td>STAT</td><td>03/23/2021 8:42 PM EDT</td><td></td><td> </td> 03/23/2021 08:42:00 PM EDT [facility] C-REACTIVE PROTEIN <td>C-REACTIVE PROTEIN</td>< td>Routine</td><td>03/23/2021 8:42 PM EDT</td><td></td><td> </td> 03/23/2021 08:42:00 PM EDT [facility] MAGNESIUM <td>MAGNESIUM</td><td>STAT</ td><td>03/23/2021 8:42 PM EDT</td><td></td><td> </td> 03/23/2021 08:42:00 PM EDT [facility] LACTATE <td>LACTIC ACID</td><td>Rout ine</td><td>03/23/2021 8:42 PM EDT</td><td></td><td> </td> 03/23/2021 08:42:00 PM EDT [facility] COMPREHENSIVE METABOLIC PANEL <td>COMPREHENSIVE METABO LIC PANEL</td><td>STAT</td><td>03/23/2021 8:42 PM EDT</td><td></td><td> </td> 03/23/2021 08:42:00 PM EDT [facility] OXYGEN DAILY PROTOCOL <td>OXYGEN DAILY PROTOCOL</td><td>Routine</td><td>03/23/2021 5:48 PM EDT</td><td></td><td></td> 03/23/2021 05:48:21 PM EDT [facility] OXYGEN DAILY PROTOCOL <td>OXYGEN DAILY PROTOCOL</td><td>Routine</td><td>03/23/2021 5:48 PM EDT</td><td></td><td></td> 03/23/2021 05:48:21 PM EDT [facility] MRI, lumbar spine, w/wo contrast 03/18/2021 12:00:00 A M EDT DAVID ([facility]) ECG ROUTINE ECG W/LEAST 12 LDS W/I&R 03/10/2021 12:00: 00 AM EDT eCW1 ([facility]) Results ID Date Data Source [id number] 05/05/2021 06:37:00 PM EDT [facility] Patient: SIENNA FOSTER Observation Re port - [facility].VisitID: [id number] [place] [address] [phone], FRegistration Date/Time: 04/24/2021 22:55 Weight:68.9 kg (S). Height/Length:68 inches (S). BMI:23.1 PAST HISTORYProblems:Anxiety Reaction [Chronic].Back Injury [Chronic].PTSD [Chronic].Depression [Chronic].Diabetes Mellitus [Chronic].Peptic Ulcer Disease [Chronic].Crohn's Disease [Chronic].Gastritis [Chronic].Hypoglycemia [Chronic].Vomiting.Diarrhea.Abdominal Pain.Crohn's Disease.Peptic Ulcer Disease.Gastritis.Colitis.GI Bleeding.MDD.Abdominal Pain [Intermittent].Recent Travel [Resolved].Sick Contact [Resolved].Pharyngitis [Resolved].Abnormal Test [Resolved].Vaginitis [Resolved].GI Bleeding [Resolved].UTI - Urinary Tract Infection [Resolved].UTI - Urinary Tract Infection [Resolved]. Additional Surgeries:Appendectomy.Back Surgery. (T12- S1 FUSION)Cholecystectomy.. (X2)Gastric bypass revision in March 2017 for an ulcer.Gastric Resection [2013]. (Justyna- en y)Gastric surgery. (Pt reports she had a hole in her stomach and was repaired in jun 2016, [address] still in place)Hysterectomy. (Ovaries still in place)Knee Surgery. (Left). Medications:Hair Skin & Nails Gummies Oral 1 gummy, daily, last dose 04/23/2021.Probiotic Oral 1 capsule, daily, last dose 04/23/2021.Carafate Oral (Tablet 1 gm) 1 tablet, 4x a day, last dose 04/24/2021.NexIUM Oral unknown, daily, last dose 04/24/2021.Protonix Oral 40 mg, 2x a day, last dose 04/24/2021.Rexulti Oral (Tablet 0.25 mg) 1 tablet, daily at bedtime, last dose 04/23/2021.Synthroid Oral (Tablet 125 mcg) 1 tablet, daily, last dose 04/23/2021. Allergies:Amitriptyline.(hives) (suicidal thoughts)Bees.(Anaphylaxis)Maxalt.(Anaphylaxis) (coma). FAMILY HI STORYNo significant family medical history. (Electronically signed by Madiha Perla P.A. 04/25/2021 06:30) Weight:68.9 kg (S). Height/Length:68 inches (S). BMI:23.1 PAST HISTORYMedications:Hair Skin & Nails Gummies Oral 1 gummy, daily, last dose 04/23/2021.Probiotic Oral 1 capsule, daily, last dose 04/23/2021.Carafate Oral (Tablet 1 gm) 1 tablet, 4x a day, last dose 04/24/2021.NexIUM Oral unknown, daily, last dose 04/24/2021.Protonix Oral 40 mg, 2x a day, last dose 04/24/2021.Rexulti Oral (Tablet 0.25 mg) 1 tablet, daily at bedtime, last dose 04/23/2021.Synthroid Or al (Tablet 125 mcg) 1 tablet, daily, last dose 04/23/2021. Allergies:Amitriptyline.(hives) (suicidal thoughts)Bees.(Anaphylaxis)Maxalt.(Anaphylaxis) (coma). (Electronically signed by Willie Diaz P.A. 04/25/2021 10:24) Name Value Range Interpretation Code Description Data Arabella rce(s) Supporting Document(s) ID Date Data Source [id number] 05/04/2021 04:34:32 PM EDT [facility] Name Value Range Interpretation Code Description Data Arabella rce(s) Supporting Document(s) Discharge Summary [facility] OXXUCz8lAqZGFlRz68/CMKarVEAis2EaQQbuYEk9DVhvTXOaL3EvMUI1lB6aLSS0KLvKPgJyFjZnQWY5 [facility] [file] CEWvI6EhOT5dFZTQAk2+SVlmkNNtqQgeCFNBJcDzOKD7WSpeSSOIIp2V ID Date Data Source [id number] 05/04/2021 03:25:37 PM EDT [facility] Name Value Range Interpretation Code Description Data Arabella rce(s) Supporting Document(s) Nursing Note [facility] OZWXIp3jSjKZAzPn59/IBFxqSQJrt5BmYEzhXXu3DWzqGQChA3QfUXB8cI4rLDK1IOpZYqAhBhZwJXY4 lbm [file] T0YNCg== ID Date Data Source [id number] 05/04/2021 12:56:29 PM EDT [facility] Name Value Range Interpretation Code Description Data Arabella rce(s) Supporting Document(s) Care Plan [facility] JECVEf0aRwLPUaCl82/QANytGKIne2ImLOxgCRf4NRkbKRSzD9CcSMT4xN6lFPE9VZqJKhDdEtXtBFT1 lbm [file] ICAgICAgICAgICAgICAgICAgICAgICAgICAgICAgICAgICAgICAgICAgICAgICAgICAgICAgICAgICAg ICAgICAgICAgICAgICAgDQogICAgICAgICAgICAgICAgICAgICAgICAgICAgICAgICAgICAgICAgICAg ICAgICAgICAgICAgICAgICAgICAgICAgICAgICAgIC AgICAgICAgICAgICAgICAgICAgICAgICAgDQogICAgICAgICAgICAgICAgICAgICAgICAgICAgICAgIC AgICAgICAgICAgICAgICAgICAgICAgICAgICAgICAgICAgICAgICAgICAgICAgICAgICAgICAgICAgIC AgICAgICAgDQogICAgICAgICAgICAgICAgICAgICAg ICAgICAgICAgICAgICAgICAgICAgICAgICAgICAgICAgICAgICAgICAgICAgICAgICAgICAgICAgICAg ICAgICAgICAgICAgICAgICAgDQogICAgICAgICAgICAgICAgICAgICAgICAgICAgICAgICAgICAgICAg ICAgICAgICAgICAgICAgICAgICAgICAgICAgICAgIC AgICAgICAgICAgICAgICAgICAgICAgICAgICAgDQogICAgICAgICAgICAgICAgICAgICAgICAgICAgIC AgICAgICAgICAgICAgICAgICAgICAgICAgICAgICAgICAgICAgICAgICAgICAgICAgICAgICAgICAgIC AgICAgICAgICAgDQogICAgICAgICAgICAgICAgICAg ICAgICAgICAgICAgICAgICAgICAgICAgICAgICAgICAgICAgICAgICAgICAgICAgICAgICAgICAgICAg ICAgICAgICAgICAgICAgICAgICAgDQogICAgICAgICAgICAgICAgICAgICAgICAgICAgICAgICAgICAg ICAgICAgICAgICAgICAgICAgICAgICAgICAgICAgIC AgICAgICAgICAgICAgICAgICAgICAgICAgICAgICAgDQogICAgICAgICAgICAgICAgICAgICAgICAgIC AgICAgICAgICAgICAgICAgICAgICAgICAgICAgICAgICAgICAgICAgICAgICAgICAgICAgICAgICAgIC AgICAgICAgICAgICAgDQogICAgICAgICAgICAgICAg ICAgICAgICAgICAgICAgICAgICAgICAgICAgICAgICAgICAgICAgICAgICAgICAgICAgICAgICAgICAg XJDbVIGoEHVlAIFeGRFsVIEySZTqSXQaZQu7Z1alYODrKCCqZX0mCIi8Yg0+DJxNMsByXHL9dvHooP1W KV3ou6ZgEJaxLJWqy2JgVQd4IM8HVWLlMKtlWI8DSA yufz0IEZVyMIEvdKARd3obWqCbAEG8JXElImbmSO5GAPQjC6idfeSkNJDzGCUPIK5MBgNpK5HgdY78PH ENCj4+CFowlzAsNiiMIrS3GERdx9SyTYt5SM4GGINkOdrty4UoLsRqDQUWHWlaYX2FQKX7FIH7WBGdOg 0AQEHiW104euEsJG3JOv7AUyCnNA4avc4PFhBeTVAe JptHCxn2QUzdBC3JcNSaBYbLDOXnKWKjMM4sJsawI4AydTecRCJzlZWviC8gWBUPTbCxdKR7QpR1OqWl OeWgDCI1BBAhSB8nDCexFF9TAPF8RQndQRVzTBTlG7oYJrTeJSijPFOumIhuED5GZfEvO0OdqeJcwMSj NSAwIFINCj4+RGpoxsZxQveRWjZ1KNGzq4ObVGr1EH 9SABRlRLxqBO2ZLSSliL0xIJjyYJ0TJaVxMjOwYZONRgUsB37rkWOxMHj4Y5PsNyBgCGBeSkihQXTtHT wvTmFtZXMgWyBdDQogID4+ID4+PAdrLC4QMVgnreJsGFLfBh8IPILrMVGoRQ1uFCPgCVYjU7N5hSbxSL RETdQpR7qpytcsUB1uZFNvL072pImxjiEgTGM7USBq St6HBFPvLXT7IKRpaURiIlIvUZBWJKtmTO2HgFImVVG4vR1wJJjuWDXkQCVfO3fBXvWilRamED78hEyb bnVsbCBdDQo+Kd9JKF6kj2DeWCh1kwKwXRqdJLW7OXvcWJOxCCIzHEGkNBD1UOV0VOVHUfNiQGCpJUYr QUulPRWdYDUuao7HRAZaJKMoWCO0ArDcXJZwXOOtNV riNKHnYRRaAeT4ORQoUGUgFZ0DBeUpYYAmWAHpFZjlMVJoFRPbga1GAPKqMDSdHKdaYbAvWXIdQMOwJA siTYUpXTTzDLD4QCOsNMBySR0IKlVcCRXxFGF0OaKcIKWsQSFlwd5MRTZmZFJbPfG8BiJaVMFoOFEvND zcZCIxPBLrHhRgAGLoNSZdKV0JIvFiWYWlJFJeNFGx EGObTPFggt2NSRSgJNXoZUXzTvOiLWDsWUBdZIqrKLSgVYF4BUi1MJBrMSRxYW2ZSyOgBEPmBUB2Ppwz VDBaHUWivl4IVOKcIHBvPwS3VTAfKXWkTJJgVBtbKRXcBQQ6RLEjJJOxAMRvPE9WUcUsJMGfGDc7VNHa LNWyHFYqvb9NAQRrASDuMzd4NBGdUNNoAHXoEDyvMX VmBAG5DjrwUFEcXADsWM4VIdCcZILeCUn4EHiyNRXnBYDglj2AAEItYNVoJDJ9UMUzNAHvGYEpXKgiLP WbTUMtTHZ4UAHfWCIsIR5DErUsZCUoNbHfBJAuSHAzZGBhlm4OLPAwLQHfAVW7SYHiAYIoDGCpKXpzXL YyJZFgLKN2LQXjEYXpPK1CLgOmYDXoPcLwSONjDMZp GPNaei1WQXDqBVMaVlIbUfPdFMWhQARkKRcyZRNrBTMvTATxJXPwDTAzPR8OKuGaSFvnDDTBEmi6YOxk L1v6REUhUF1SJ7Kjz2ZvPnwcNJHNTHfsCM3orbOtBQHqZc4EJ7pFHimhUJKtEoNgOiQiNOZ0PeN1LtCt LGK9HEQbBED9FCZdWR4xLBF5LNDrQwO0JDL1ClJjNH OyUcMkHamwV2HpQglgWhE8MiCmBB7NYr7XGuH2UZI3nTXgXy8XIuK9FXZHEuVzCZ9VGHe= ID Date Data Source [id number] 05/04/2021 07:13:56 AM EDT [facility] Name Value Range Interpretation Code Description Data Arabella rce(s) Supporting Document(s) Nursing Note [facility] QHISYg2lVkIEJsXe03/UXVnqVUHej3HqGKywDOf2ZQkaGBRjK7IvLNF2zZ5cLEY9NDxUJdTsQsGsRAI8 lbm [file] HqCyBtUF0ENf8ZUyO4QRJ9wIGpKc8ZBhJoQFULTpIsTH6RJCx= ID Date Data Source [id number] 05/04/2021 05:39:00 AM EDT [facility] Name Value Range Interpretation Code Description Data Arabella rce(s) Supporting Document(s) Blood Urea Nitrogen 15 mg/dl 7-18 Normal (applies to non-nume ny results) [facility] Creatinine 0.78 mg/dl 0.51-0.95 Normal (applies to non-numeric resul ts) [facility] N-Acetylcysteine (NAC) and Metamizole em ve the potential to falselydepress Creatinine results. Baseline values before medication adminstration are recommended. Patients undergoing treatment with phenindione will have falselydepressed results. Patients on phenindione therapy should be tested with an alternativeCREA method.Toxic levels of acetaminophen may lead to falsely depressed results forpatient samples. Glomerular Filtration Rate 83.00 mL/min/1.73m2 [facility] GFR Reference Ranges:Normal Function or Mild Renal Disease,if clinically at risk:>or= 60Moderately decreased:30 - 59Severely decreased:15 - 29Renal Failure:<15 Please note that the MDRD equation requires an additional adjustment forAfrican-Americans (multiply the GFR result by 1.210).Glomarular Filtration Rate (GFR) is estimated based on the MDRDequation, which assumes a steady state for creatinine (Yaneli Int Med 139/2 137-149, 2002), as recommended by the NationalKidney Disease Education Program in conjunction with the National Institutes of Health and the National KidneyFoundation. The Kelley method used in calculating this result is traceable to IDKY standards. Glucose 86 mg/dl 70-110 Normal (applies to non-numeric resul ts) [facility] Sulfasalazine has the potential to false ly depress Glucose results. Sulfapyridine has the potential to falsely elevate Glucose results. Baseline values before medication administration are recommended. Calcium 8.5 mg/dl 8.5-10.1 Normal (applies to non-numeric resul ts) [facility] Sodium 137 mEq/L 136-145 Normal (applies to non-numeric resul ts) [facility] Potassium 3.7 mEq/L 3.5-5.1 Normal (applies to non-numeric resul ts) [facility] Chloride 109.0 mEq/L 98.0-107.0 Above high normal [facility] Anion Gap 9.7 [facility] Carbon Dioxide 22.0 mMol/L 21.0-32.0 Normal (applies to non-numeric results) [facility] The above 10 analytes were performed by [facility] [place] [id number], ,[place] [id number] ID Date Data Source [id number] 05/04/2021 05:39:00 AM EDT [facility] [facility] Name Value Range Interpretation Code Description Data Arabella rce(s) Supporting Document(s) Magnesium 2.0 mg/dl 1.6-2.6 Normal (applies to non-numeric resul ts) [facility] The above 1 analytes were performed by [facility] [id number], ,[place] [address] ID Date Data Source [id number] 05/04/2021 05:18:00 AM EDT [facility] Name Value Range Interpretation Code Description Data Arabella rce(s) Supporting Document(s) WBC 5.61 x1000/ul 4.80-10.00 Normal (applies to non-numeric re sults) [facility] RBC 4.13 x1Mil/ul 4.20-5.40 Below low normal [facility] Hemoglobin 11.1 g/dl 12.0-16.0 Below low normal [facility] Hematocrit 34.4 % 37.0-47.0 Below low normal [facility] MCV 83.3 fL 81.0-99.0 Normal (applies to non-numeric resul ts) [facility] MCH 26.9 pg 27.0-31.0 Below low normal [facility] MCHC 32.3 g/dl 32.2-37.0 Normal (applies to non-numeric resul ts) [facility] RDW 14.6 % 11.5-14.5 Above high normal [facility] Platelet Count 235 x1000/ul 130-400 Normal (applies to non-numeric results) [facility] MPV 10.4 fL 9.4-12.4 Normal (applies to non-numeric resul ts) [facility] Neutrophils 51.3 % 40.0-74.0 Normal (applies to non-numeric resu lts) [facility] Lymphocytes 36.5 % 19.0-48.0 Normal (applies to non-numeric resu lts) [facility] Monocytes 9.3 % 3.4-9.0 Above high normal [facility] Eosinophils 2.0 % 0.0-7.0 Normal (applies to non-numeric resu lts) [facility] Basophils 0.7 % 0.0-2.0 Normal (applies to non-numeric resul ts) [facility] Immature Granulocytes 0.2 % 0.0-0.5 Normal (applies to non-nu meric results) [facility] Nucleated RBCs 0.00 % 0.00-0.20 Normal (applies to non-numeric r esults) [facility] Abs. Neutrophils 2.88 x1000/ul 1.92-8.31 Normal (applies to non-numeric results) [facility] Abs. Lymphocyte 2.05 x1000/ul 1.20-3.70 Normal (applies to non-n umeric results) [facility] Abs. Monocytes 0.52 x1000/ul 0.14-0.97 Normal (applies to non-nu meric results) [facility] Abs. Eosinophils 0.11 x1000/ul 0.00-0.76 Normal (applie s to non-numeric results) [facility] Abs. Basophils 0.04 x1000/ul 0.00-0.22 Normal (applies to non-n umeric results) [facility] Abs. Immature Gran. 0.01 x1000/ul 0.00-0.02 Normal (appl ies to non-numeric results) [facility] Abs. 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/bSlL0SpO18YJrB [file] ICAgICAgICAgICAgICAgICAgICAgICAgICAgICAgICAgICAgICAgICAgICAgICAgICAgICAgICAgICAg ICAgDQogICAgICAgICAgICAgICAgICAgICAgICAgIC AgICAgICAgICAgICAgICAgICAgICAgICAgICAgICAgICAgICAgICAgICAgICAgICAgICAgICAgICAgIC AgICAgICAgICAgICAgDQogICAgICAgICAgICAgICAgICAgICAgICAgICAgICAgICAgICAgICAgICAgIC AgICAgICAgICAgICAgICAgICAgICAgICAgICAgICAg ICAgICAgICAgICAgICAgICAgICAgICAgDQogICAgICAgICAgICAgICAgICAgICAgICAgICAgICAgICAg ICAgICAgICAgICAgICAgICAgICAgICAgICAgICAgICAgICAgICAgICAgICAgICAgICAgICAgICAgICAg ICAgICAgDQogICAgICAgICAgICAgICAgICAgICAgIC AgICAgICAgICAgICAgICAgICAgICAgICAgICAgICAgICAgICAgICAgICAgICAgICAgICAgICAgICAgIC AgICAgICAgICAgICAgICAgDQogICAgICAgICAgICAgICAgICAgICAgICAgICAgICAgICAgICAgICAgIC AgICAgICAgICAgICAgICAgICAgICAgICAgICAgICAg ICAgICAgICAgICAgICAgICAgICAgICAgICAgDQogICAgICAgICAgICAgICAgICAgICAgICAgICAgICAg ICAgICAgICAgICAgICAgICAgICAgICAgICAgICAgICAgICAgICAgICAgICAgICAgICAgICAgICAgICAg ICAgICAgICAgDQogICAgICAgICAgICAgICAgICAgIC AgICAgICAgICAgICAgICAgICAgICAgICAgICAgICAgICAgICAgICAgICAgICAgICAgICAgICAgICAgIC AgICAgICAgICAgICAgICAgICAgDQogICAgICAgICAgICAgICAgICAgICAgICAgICAgICAgICAgICAgIC AgICAgICAgICAgICAgICAgICAgICAgICAgICAgICAg ICAgICAgICAgICAgICAgICAgICAgICAgICAgICAgDQogICAgICAgICAgICAgICAgICAgICAgICAgICAg ICAgICAgICAgICAgICAgICAgICAgICAgICAgICAgICAgICAgICAgICAgICAgICAgICAgICAgICAgICAg MVTeADAkLLShTQLfFGf5A0ibKFYyDOQgXN4oPDw5Qd 8+NEhLZjSoPGM6ksUisF9EPV7le8MvQOcuLDVfn0RtPIc9BE2HEUTmTRehLW8MXRcpsl1NWPBtWNLbgJ WPg0qaMqZhDUP5LXGkThjpFG2ERQFpV4pkcoHzIQTiUPYHLH2UKqCkF1AusP63VEISZn0+DQplbmRvYm xXEsHzGGSrt5WrBUq8AL4RISLcJvyfl6XxIaAdBYQC ICnsNX0PXBV7BXSfWRAoXx4MQQAqC676kuVqLU6QXk0DOoJrAA5irn9UAvUyNVTwKuhPTes5GHfaPL1W oPCaKPuUXQQrFYBuJL6nUmffAtT1AQbwtATnFeplc3HnV0tlZYVWEAK5MWfaZaVuGuHlTTZsZQvdOWCH QLlEEcRtG2Lov8MnQuU2KDDjKpKqCRlhHQBvQdH6RC 52mBkmLH4ASUBiEKUbDH24JTYkZRKmRl4NWt8RWbAlQY2amz5RHqKyWMHpPtmYWat8TUqiXB4OoJBlP6 XeqAIzw7rZMnAcT5NZDIX7HNXwRq8RURSgPtGbMSVoKSoeWJ3jZWNmOKTAkMifxyM2JM6OBN3elnZpSK 3ENbGbSm5dTa8BZyZlT7WgW7HiHVSdRPIOQFqpLH0O HZnfXB7wSV2Ze9HUgASqyE3gfn6XKPJcEAEfMacgmg6NShpwB0I7iYttQJAdMyHhFLMTYKftWD2XPVDu FFA9ATMvZXCaGYDZSpHqG27xYS2RC7Mos35wIoM5BORfUxRsVWnfAU69pFuzneAusDImgEogNZ0DPy3+ DQplbmRvYmoNCnhyZWYNCjAgMzMNCjAwMDAwMDAwMD JlIiP9VxPoOm8VKLUrDDIySQEsCePrZBDlXFWrBJicFTPcEYZjZFK5CGIxOPPdYI3GQnFhGXPwPUPrYL ZeHQSuCINoad8FJNRoSQQaCPK7UbTuNXNpMYMeRKidHPKqJQJgJFN0DMSjGFNvMF6CTlKmBMRvJHVjLZ YlWZGjNKQila0YNNXsCCDcFWE0OKObEYAbRPNjSZqa ZMXgCFK7ElriDZUvRXNjVU0LKgFcPYYgGWT1VKnaHSBdKDGhhk0ZUONySVAzYKZvQjPsIXZqRXSwBTlc RXZzLIZ0QzZpNSKcSKMyIK8VImGdWZWpDRN7SRRfLAOvXIFtio1GCFKzPPRoXYR3ETFjEXRkYSVhFOon NERpQJT1PRAwDJOoJKXcJP6MBeDbCRTpJPi3UsuoKY QxHJXsvk7TEWUeUHBdABebICBuAHQvNLMgQRlbTEIyDII2ANB2DNAoQGToXT5CIvQjQSWaDLh3VNdnLP BfZEYhgz6FORNvVSWhSLV0FLHmYDCtBMAgILaxTUMpTDTgGohyPFIsYOTbAQ4MXhZnEOMzBaNdYyHgXJ LwEAOlsa3CNIDlIGSwXPLwGXMmWPUcYIIhUGhsLRAh OQNuZtimSWYkAVVhBY8PDvDdHZJvWxmkUOLnUHWhLZNeog7QCTMdJTXxJWCjOBQlNXPwDZUtZXyfHSGr DBB3KII3TZJpLPNeXB4HLlAwCDTlZLGvRJfnDAPzORIusj3RSPAvCKB7ADDdUNQkPGHiDBMoGEbkKUEr NIAlYNZjCNDfXGGjZX3JVkEgASQtLBAqYARwDTNyUD Hrbl5WVVYiQNE0DjC4AvRdXMMyOULmZYreJQFiSTJtFtG3YDXvFZRuHK3XSnLxHUkiCTVGYuk6WIxoD5 u7JRUtSe8QW4Jig5EhGkCaNGUUNSsmKA9yotIpYBNyRw2WY8rMElz1MoHzHYA6HQWhTSAwXBXgG8KbEA UqCRUnHnMvFbwyPM4uDXu3EmL2Jxb1VZK2HUKfJlMc SDWcLCD3GDBuCwMhKSD6OmCoDT8IUz2WQfM1LDD7rLUmOx3FHHM1VFNKMtVeTL4TXBa= ID Date Data Source [id number] 05/03/2021 04:14:39 PM EDT [facility] Name Value Range Interpretation Code Description Data Arabella rce(s) Supporting Document(s) Progress Notes [facility] UHXHGo7rRxKKWyQu19/FGMxqHLOvs4RnSSufFHz2BZwqMAVqZ0PgNBQ6kO9mWYL6EQcVChOjVgImIGH2 lbm [file] ICAgICAgICAgICAgICAgICAgICAgICAgICAgICAgIC AgICAgICAgICAgICAgICAgICAgICAgICAgICAgICAgICAgICAgICAgICAgICAgICAgICAgICAgICAgIA 0KICAgICAgICAgICAgICAgICAgICAgICAgICAgICAgICAgICAgICAgICAgICAgICAgICAgICAgICAgIC AgICAgICAgICAgICAgICAgICAgICAgICAgICAgICAg LRLhKZSnTPWpWJ6XYQLbXZNgFCSeMSUzIHVpUJUqQOTxMOPtMMHdYGEpZSArFOBeWBKwCUEcJNGeOLUe ILIcNTCvTZZxBASfVIZbOKZzUTJyGRJhCOMmCANvPGMbDVByMMTmJBJgTKHuGZHhTQEbPA1VGNVtDCMs ICAgICAgICAgICAgICAgICAgICAgICAgICAgICAgIC AgICAgICAgICAgICAgICAgICAgICAgICAgICAgICAgICAgICAgICAgICAgICAgICAgICAgICAgICAgIC InWF5BKLDzARXeHEGpOKNnVDGnEKDsKTToLRHbFEVvXLQkZEPmPJCoCEBvAJZoUJWdPCBrSXGiUMBeZS AgICAgICAgICAgICAgICAgICAgICAgICAgICAgICAg GSHdWVDuVOHbQVEzGO8FLJGeKJDpXGFtXYMkHGWfXFMiDICxXELeOASxXLPcLCWoGQSlAARkGGKjZDRz SPEiFKWwUGAbWJElPALqMMNhXBQrOFIoBNPrPEQwUSDvLUUrDMYqYBIaWAQvJYPvHEZhQDFwNU0DBXRw ICAgICAgICAgICAgICAgICAgICAgICAgICAgICAgIC AgICAgICAgICAgICAgICAgICAgICAgICAgICAgICAgICAgICAgICAgICAgICAgICAgICAgICAgICAgIC HpYHIwXP0GXSCrSHVzKCCzRFTvQRUvHHVtOGPgGPWwTGWgZVYmCPApATTzAGEjJRDtKBMiBLKuANSgWF AgICAgICAgICAgICAgICAgICAgICAgICAgICAgICAg IGKaEKJrTDVyGYKvBRYmLN7PSMUtXXNjLITdLOXyDCHuFCSvDIBpWMXtHZUvPJHsUKFhZURxFCTgRVKd HOBvBEAcHKAaISFmUQKdFRGyJRBiGSJeMZKgMFIrPXHaYSRsIJEiKTIyGRXfWJXvQXEpYBUaHODnST1H FX48lSKek1K0TNUmLV7thnk/Sd5QINymroRdySOjMU 5PXhCmWR0how2JQmLqJL8uvu3RYZuSVdOpU7N3sUBrKRCsQIDVIeDxX30tATykPo57MUpgZBDyEvWnAR d8Ch1XEnVbN8ciGKOzSkM2RHIeAmZ9XVXlKiH9OMLzPrCaEWIvQPNhQD0ROKMaC599yrZgBN1MDc9QOi LfHI0lea6ZOFNbUZKiUajBYnm6INvyFE4XlGJksZX3 YwUlWVJAZqUpN5gzq7DpROBrCCFZPPsaFZ5Zp0QoeNOkNLz+Gw4CDV5jf3QlHPn6QzAqPO5pnf9DLThL YnErE6MqsMltVFBqv6wbOFAoYS5ohAMfRHV7HM2xocV9VBIpGMvbPO3GOCQ0TNfsLaSbIaFqUCRkXuj2 CIFBJJfNYfPcM8Rmq6YfMcK9WBPlPqLgPOlkOQOqHc O8VL87bWabDA1XDUOtOVHrGZ73UCGiZTIoYz8FGf1QNsXbNT1jfm7CHOFzXGYaHezNPva1TWguTH4YwI LnH7BblIIqy3dEIzBwH5QRJSCbFQUyIo5WYJZpAzOnGGHvHQveRV8tYCPnGKZOjAipwuE6HI6HQG5cui ZyWB3BCaXrQl8tEh9QSpFxM7GiV6LcYSZkVXYFVLhu QO9PTHeiST8vUI9Ta3LRuWRlyX5dka9GECCsLLZmKifkxe5JGogsB2H2oHcjSSXwBCQeSRVDNAhcLP7W NFOlSDF8ASL1YQAgJGJABjScE66pAX2UC5Xfx84uJmP7RUWvGfGsFFycZT53lYhmghRdpRNazMgqUU6L Cj4+DQplbmRvYmoNCnhyZWYNCjAgNDUNCjAwMDAwMD QsXYRdIkP1AdWnCu1CNIThZQEvCVQeYtJuQYNzNNGlAQrjLJAiVRN8JzY1JQGxEVOfDZ7IGtNiZPXrJD uvLjbmAMUkAENuhk7XHGCnCBMlHHT7IyQqLLYgRTPtJRzwCOGlFVJtKDK5HQBaLFSeWR9JLrJkAKFnPQ OxQXOoCSUrTGUokv2DNRLjOUDxOFjcTHNuYQWdLNOh CJtfRCTbVVM2BLH0BFAcUWTgLU7JUhLvTTRyDDC9LUdkKULtCXGcdj7WXFVsPSNpBpYaWPHgUCQgKKFi SJxgOXOqKOT5CrxqMTNnRHUlWT2YCaFkUKHxPEa3WaTaFBGgMZUrgg5SRLReSNKgQDlxCJLtBDMwVLYy SVeaOBRyIRThVZM2YARgYICuKJ6LSeNcBPJuPPYpMs QiMTLoXNYuwo9YHTJeQYXcCrP1YYKoIHQtPNArUEgiSBFcIXQiCyxmYSMlAHZoHL1HWwHrNZMlLYL8Gh KoEHRtBCJisw7LYGBdQKDxJTcyVDQsXYIbNGEgCZnpSORbUFA6QrIjCFLmSWVqOR8QGeLjBJHxJzH5Nv trPUEjMABsae2RCCLeCVChYBG1FKTnEMLsHFSlWGwi JOPjPLN0ZZK8OCYiICIcIK1DAeGlOLHnHqR6KomgEAJlVYDhsf0IIXLiPIKnMvs0WQCgGWBxTJDpXGom XXYdJLQ6WXJ7VKIkVMMoSG1MJzRiSBKcOghrAprhTGPlBSDwlf1MKCXgGLMsZPP2EXMtUBYfFKYpPWts YIJlVDT8SZI0CGEyBJYyTM5QWkQyKAIrJsxnEufrGX EtLRTfyj0NUSUsLYOaVLK1CWRjXFOiFYEaYCfmXAWmKYA7FuE8TGVrSHToPT2KTqDeSEXbPLZhBByeHH PlTZRtxe2LLNJxPEJ3VrH5GxFwPKKtNKMtOCttJGUxJHWuWKqbKXVaYSXrAB8GUrCgSYExHTD2MbMhBT QgKWIozw7UYJHhIMB7Jlk6PBKnPPOvQGOrJBveWUGr HDK2MPUcJTZoZJIjCD8VGtQmVEOhASFeIdUkSRFiWTPlzg0AFDIeQQI4SMTrPpOaXYVjWYFfJFwhBWKe MLN6Dwr6TYFlPKQgCM3QHnDnDXXqVPauAXOxESImRDRrgc6FXLTgYLN8EaNfJTFwGPQwUFLgZJddSAXw VEM2ZARvESZoBJOwPU5LRkLyKZcyYKHISbh3JKveI9 l5RGF7JV0RR8Ioq0CtTVYeRWPHFOjnFR5fssEoXMNaWg1FI2lVEfyhZGFlHdWoFVMoLrHcNLLpTRSaC3 WmIbX1YjWqLHXxPs1fTMUhG4ArPHJfIMS2HJPtBjF7ZEShSYLxSabwYjNvEGYhZmFzSX6JCe8UJcW9FH P8gFOgFj6NAOd0VZMWRiAwIE8ZWNy= ID Date Data Source [id number] 05/03/2021 03:38:36 PM EDT [facility] Name Value Range Interpretation Code Description Data Arabella rce(s) Supporting Document(s) Progress Notes [facility] AKHKKi9jWiFVCcLw06/UDChsBVVbo9HmXHuqGBy1MSbbOPDxQ5RoVDC4iS3zBNZ1CFtOPyEaZgMfVGT7 lbm YzXdpQBoIjWJUgMwtLLtApDFnwIldmyIXqDD8ItYL6SEEgZ06bZYDiYZLbH5EtMYX2WSc+Dk3TOEGvfR GsLM7RCqgA8JezM+B25tcL0g/9yCJC7Rm7i81pEJWl2weNQtBnfkmoYgf9EQ45bhoYx6T//ewA5qSM0d GpP5mlAWOCBQzjy2cBEXEZgCzcL8YLIFRQaUns/CpT [file] FiThRsRDtpBKLDWx7O ID Date Data Source [id number] 05/03/2021 11:35:45 AM EDT [facility] Name Value Range Interpretation Code Description Data Arabella rce(s) Supporting Document(s) Care Plan [facility] AMSYJc4iEcUUPqYq66/YQWaeHKNqi1BsFVtdAGr3IIfhHPMcP8LoDMA7zI0kBXK9KPmPGwNbTkUpMLF6 lbm [file] DQo= ID Date Data Source [id number] 05/03/2021 10:15:39 AM EDT [facility] Name Value Range Interpretation Code Description Data Arabella rce(s) Supporting Document(s) Nursing Note [facility] SNXXOa9eCsTHJuKl80/BMLfkHHJqt9FeEJcqALi8IRliKVKeZ4PlDDY9dA1lAEF9BEsNThUuBmEwTQQ0 lbm [file] IaF1CxFuDP8PFp5NHlH8DFJ4hNFyGw7XItC3DEWRIfOoCF8RZYc= ID Date Data Source [id number] 05/03/2021 09:38:41 AM EDT [facility] Name Value Range Interpretation Code Description Data Arabella rce(s) Supporting Document(s) Care Plan [facility] CTMWSc1dIuXURuDu03/SUJhvKEEcw7LjYXpjCBy6TGggYUKjV3KgTGJ0sL8dCHA5MBvHKoGePzAmTDG0 lbm [file] 9GDQo= ID Date Data Source [id number] 05/03/2021 07:07:07 AM EDT [facility] Name Value Range Interpretation Code Description Data Arabella rce(s) Supporting Document(s) Nursing Note [facility] IIULNe4pMaQQHjCm51/AJYfhUGOew8GuVIvtDDn5ZImeVMLdH3OwPCD6sE8eGIU9HLiCToSxCpFbRCQ1 lbm [file] == ID Date Data Source [id number] 05/03/2021 05:12:00 AM EDT [facility] Name Value Range Interpretation Code Description Data Arabella rce(s) Supporting Document(s) Blood Urea Nitrogen 11 mg/dl 7-18 Normal (applies to non-nume ny results) [facility] Creatinine 0.72 mg/dl 0.51-0.95 Normal (applies to non-numeric resul ts) [facility] N-Acetylcysteine (NAC) and Metamizole em ve the potential to falselydepress Creatinine results. Baseline values before medication adminstration are recommended. Patients undergoing treatment with phenindione will have falselydepressed results. Patients on phenindione therapy should be tested with an alternativeCREA method.Toxic levels of acetaminophen may lead to falsely depressed results forpatient samples. Glomerular Filtration Rate >90.00 mL/min/1.73m2 [facility] GFR Reference Ranges:Normal Function or Mild Renal Disease,if clinically at risk:>or= 60Moderately decreased:30 - 59Severely decreased:15 - 29Renal Failure:<15 Please note that the MDRD equation requires an additional adjustment forAfrican-Americans (multiply the GFR result by 1.210).Glomarular Filtration Rate (GFR) is estimated based on the MDRDequation, which assumes a steady state for creatinine (Yaneli Int Med 139/2 137-149, 2003), as recommended by the Nationaldney Disease Education Program in conjunction with the National Institutes of Health and the National KidneyFoundation. The Kelley method used in calculating this result is traceable to IDKY standards. Glucose 69 mg/dl 70-110 Below low normal [facility] Sulfasalazine has the potential to false ly depress Glucose results. Sulfapyridine has the potential to falsely elevate Glucose results. Baseline values before medication administration are recommended. Calcium 8.5 mg/dl 8.5-10.1 Normal (applies to non-numeric resul ts) [facility] Sodium 138 mEq/L 136-145 Normal (applies to non-numeric resul ts) [facility] Potassium 3.8 mEq/L 3.5-5.1 Normal (applies to non-numeric resul ts) [facility] Chloride 110.0 mEq/L 98.0-107.0 Above high normal [facility] Anion Gap 11.3 [facility] Carbon Dioxide 20.5 mMol/L 21.0-32.0 Below low normal [facility] The above 10 analytes were performed by [facility] [id number], ,[place] [address] ID Date Data Source [id number] 05/03/2021 05:00:00 AM EDT [facility] Name Value Range Interpretation Code Description Data Arabella rce(s) Supporting Document(s) PT,Patient (on Anticoag. Therapy) 13.6 Seconds [facility] Attention: Effeciive 01/03/2020 The nor mal range for PT (on Anticoagulant Therapy) has changed:Previous normal range: 10.1-11.3New normal range: NoneDiscrepant results may occur due to anticoagulant effects such ascoumadin, direct thrombin inhibitors; argatroban (Acova), bivalirudin(Angiomax) or dabigatran (Pradaxa) or direct factor Xa inhibitors;rivaroxaban (Xarelto), apixaban (Eliquis) and edoxaban (Savaysa). INR (on Anticoagulant Therapy) 1.2 2.0-3.5 Below low normal [facility] Suggested therapeutic INR ranges for ora l anticoagulant therapy: Indication:INRPrevention and treatment of DVT and PE2.0 - 3.0Prevention of systemic embolism with atrial fib., acute AR and 2.0 -3.0 tissue prosthetic heart valves.Prevention of systemic embolism in patients with mechanical heart2.5 -3.5 valves.NOTE: The INR is only valid for patients on stable oral anticoagulanttherapy. The above 2 analytes were performed by [facility] [id number], ,[place] [address] ID Date Data Source [id number] 05/03/2021 04:56:00 AM EDT [facility] Name Value Range Interpretation Code Description Data Arabella rce(s) Supporting Document(s) WBC 5.87 x1000/ul 4.80-10.00 Normal (applies to non-numeric re sults) [facility] RBC 4.05 x1Mil/ul 4.20-5.40 Below low normal [facility] Hemoglobin 10.8 g/dl 12.0-16.0 Below low normal [facility] Hematocrit 34.2 % 37.0-47.0 Below low normal [facility] MCV 84.4 fL 81.0-99.0 Normal (applies to non-numeric resul ts) [facility] MCH 26.7 pg 27.0-31.0 Below low normal [facility] MCHC 31.6 g/dl 32.2-37.0 Below low normal [facility] RDW 15.0 % 11.5-14.5 Above high normal [facility] Platelet Count 204 x1000/ul 130-400 Normal (applies to non-numeric results) [facility] MPV 10.5 fL 9.4-12.4 Normal (applies to non-numeric resul ts) [facility] Neutrophils 50.9 % 40.0-74.0 Normal (applies to non-numeric resu lts) [facility] Lymphocytes 37.6 % 19.0-48.0 Normal (applies to non-numeric resu lts) [facility] Monocytes 8.2 % 3.4-9.0 Normal (applies to non-numeric resul ts) [facility] Eosinophils 2.2 % 0.0-7.0 Normal (applies to non-numeric resu lts) [facility] Basophils 0.9 % 0.0-2.0 Normal (applies to non-numeric resul ts) [facility] Immature Granulocytes 0.2 % 0.0-0.5 Normal (applies to non-nu meric results) [facility] Nucleated RBCs 0.00 % 0.00-0.20 Normal (applies to non-numeric r esults) [facility] Abs. Neutrophils 2.99 x1000/ul 1.92-8.31 Normal (applies to non-numeric results) [facility] Abs. Lymphocyte 2.21 x1000/ul 1.20-3.70 Normal (applies to non-n umeric results) [facility] Abs. Monocytes 0.48 x1000/ul 0.14-0.97 Normal (applies to non-nu meric results) [facility] Abs. Eosinophils 0.13 x1000/ul 0.00-0.76 Normal (applie s to non-numeric results) [facility] Abs. Basophils 0.05 x1000/ul 0.00-0.22 Normal (applies to non-n umeric results) [facility] Abs. Immature Gran. 0.01 x1000/ul 0.00-0.02 Normal (appl ies to non-numeric results) [facility] Abs. Nucleated RBCs 0.00 x1000/ul 0.00-0.02 Normal (appl ies to non-numeric results) [facility] The above 24 analytes were performed by [facility] [id number], ,[place] [address] ID Date Data Source [id number] 05/03/2021 01:45:31 AM EDT [facility] Name Value Range Interpretation Code Description Data Arabella rce(s) Supporting Document(s) Care Plan [facility] VANLLx5rJhQBEsBl84/QZJreQLNkg0QbKXzkWRg2FGwmWUSgU0RzHGN9bW5jIFL8QJyOPeYzPkKoYIH0 lbm [file] [facility]+4IgJCpzSEWjZ3aHXu5+33/8MPGcfXAHjd6E444xoDdckK4qGHuO/hnI5lhBk67+q0RY841nFr7oI oZvMt2fSKRukg/9s40nvyjkdHb8GjwC0vcskscuzk+KZyqPiHNsWPZfh+j3iCi3CjfSu6mtozdAl4RYS bfJzgdTKwkDM/ck+HY+KdPqKAACO7vUVq/MSDztTas dQ6+baDRoVtwvFD39jmS/1I4/z28pBDedFh9r8qttUfN2m+/I3XZjmUVcvIWKXvz/O7AyhL3oeo29QVd Taq7o0iIpOkT2MIDz5w8bA62Sl0/0378n/kFn4dggon6OFh5oq5ox7enbbEO/xw0w0j6T5KOunvb7k0H AFuB/K9gP5YiuUT7Onq7ofU0ih2Qs+yOwxIZv5VH93 oy60ypYRtZtd1Z+Z7VJNt0Tpz2qr2g2+ezt9E2i4RoXz+zEe8tK6hPUe9CKMcj4kxqf/OmwjD6d/O8h/ 4UTT/Q2pUf8q98zLZkxAK+MzMTjwAoEueRt1SdZWHrEX5NQDDudJarzAexr980Qevoc7Gqre+8hR4KB/ f62IdUD4+V2qPZtm745IL99c50d1/R2qzs4BlX3fe2 [file] CPPkZeo6W3DlKFCmSw8pHRRGOx0+VCbotHJgeYgpKLHVMnBfUTAuOXhxPIEVSs8P ID Date Data Source [id number] 05/03/2021 12:15:00 AM EDT [facility] Name Value Range Interpretation Code Description Data Arabella rce(s) Supporting Document(s) Hemoglobin 10.6 g/dl 12.0-16.0 Below low normal [facility] The above 1 analytes were performed by [facility] [address] [facility], ,[place] [address] ID Date Data Source [id number] 05/03/2021 12:15:00 AM EDT [facility] Name Value Range Interpretation Code Description Data Arabella rce(s) Supporting Document(s) Hematocrit 34.1 % 37.0-47.0 Below low normal [facility] The above 1 analytes were performed by [facility] [address], ,[place] [address] ID Date Data Source [id number] 05/02/2021 10:54:25 PM EDT [facility] Name Value Range Interpretation Code Description Data Arabella rce(s) Supporting Document(s) Consults [facility] EUGQNg1jSbDSAqAz78/ZELlsDNJvs9MyPDnoZCa0KOivKUOqO9JxJXY1uX1nOTC4TKcTXmWiNyNkOMU7 lbm [file] [id number]== ID Date Data Source [id number] 05/02/2021 07:38:00 PM EDT [facility] Name Value Range Interpretation Code Description Data Arabella rce(s) Supporting Document(s) Hematocrit 33.3 % 37.0-47.0 Below low normal [facility] The above 1 analytes were performed by [facility] [address], ,[place] [address] ID Date Data Source [id number] 05/02/2021 07:38:00 PM EDT [facility] Name Value Range Interpretation Code Description Data Arabella rce(s) Supporting Document(s) Hemoglobin 10.5 g/dl 12.0-16.0 Below low normal [facility] The above 1 analytes were performed by [facility] [address], ,[place] [address] ID Date Data Source [id number] 05/02/2021 05:45:33 PM EDT [facility] Name Value Range Interpretation Code Description Data Arabella rce(s) Supporting Document(s) H&P [facility] XXRRAx5zWdECTrIe59/WWNmnMOOpc9MlRUirOEy5OXzqPWUbM7CvUIA2iJ9mVZQ5QMkFZpFlZuUsYYZ0 lbm [file] CARLOS A/jcJdxpvZkGi3Tatb7mUOOYai/6E57OLwke0LXRFIG9n2p+b8jN4SzWVFiT4nJd2d75yOxL84+SOUo [file] xKC855FNYBymMQZTngZlMkG38BmsLTYm9ndox3sZgxGlkjblU1w+Y+5Dp+hkFQ6UeKiRAgLj5zNc+Juan David [file] VhvtTb+5LmWUuUadFmR3KLjeTBx3Hof1NKElCDw8eY2WGIS/0tFga2lObGnh8OwDcXV42o0ycXfcS/Kristian bW9dgrsNgsqp9QBaJ2Fgy0bTtC8kAuXgzS392vWQe+ f05k2t9ekuQA4WSUdzMnnTRWf/VblqtMu8UIyhEx+uU+rP6EKZhHI2fzkNqZWfIE53mOoSl/jnQ3+botanical 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 officer [file] ZuNDqD4d8YyQAcoreEnahXOeoHhafpwItoogZu+ RJHr9u6EqwJhfmUwKbQpV569ZvyxqZZW4UjqTqFNn0eK/I9hTTDqqESSQuBiXbXcdbNm+WmqBU+FpD32 F/X1HzbAqDajZ/L8/XYkl84SKBkMT3CnJRO2XzGT0FS+AzxLLU41r62H81K4Ty9XR+/Bi/ZGL3oImr+m f1NoxQXyMha/5Zk3fzx0/H1uxbKaw8NmMlCtRFVXZC N4UEaySwb0PLRtugqYJwsiE9g8iDyzvY4Ws0yL+al+hIH9kEQ0OiIEpmSyNaveAVUvA6afeN7cdepRxL 9apBJupWUI0QXG7hA/kRscm6SbDlDHfG/UeacFZyoSoT+2ieMT45HwPxvPWrhqd7KPwkm9v0aPMq4TCC LGxXDRv+Cn7F7pdCqCM+Angel+74BNpFxD2ts+Pnx4xM [file] KaogCqmYIgkH1Immr8lxUt4qM+R/cq+senior living//Nwd3zPDdN3d15w33J7EjEkBeKC4pgfVIAD3NR1Ls74qd [file] /tM+nRiC0ZyjwFsJ2cg0cQSzRsqvnKkZW+dUctH+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 [file] EjIOnwlKMkhbQnq+o9+52yMQEQ1n2Lkx1X8XiZ j0pvI0Rnp+PjQuhBeK7m9GyTX/YM9B94zgauF6b87YoHYIAuJkOMGbdSUnY/ajDYYasP7u2+/s+f8v9v l1YNapTMhxDjiq4rS64t4ZOPD7KgPDl0Dnt3mBmP/vH+GirdQDEFhI6PnUWxc982/3elpLMzHpJM47aa OEHtMjM0Y3aM/SmPCmytOo+vzyLAC/ymhX8TNh+gnq urKCUHc9etV8Uuqb+fR01H+f8wTYrsTSjNKcY8IJ/q5I7PoF3Fp+DEesXpoF7focpaCfBPoDCDtyzzqU QYUqBCMNHtN6KRhPlYSpIgJhl2+1pD1Z6t3IoFxTerJ3EN/UwV6bXmYEWtkMSl/puxLTa8Lk2SfnY8U9 GQfCIRL6UYhaEA7WynSXRTwpCtDt/x3l6ft89SN2MW 0i/TXMBHYoAx9Tnj79K/ng0iYHMKiqs8Zres8V+O5T1IgS+CbhqE8Thc4LVzL1Bb4h3aWLzhlLMRlnab gFRomgl1hlsmzt3nlSREqcelYYNRDnlozlv0VqUALuv+riyn8qLa8vPsxydXbg//wo+lVufvcbJ9e1jy [file] JtxF/IdS2cfZNExW6JNg4mx+sUjdghoivbUpgSGF7F7Dw1jn4ZruT6+gm/svp global publisher business/OkyEs67IgTpAVVLH7iALlY [file] zZ1e6Jpf64rWu1/mDINgO6yGbO9Hq//58f7+6/hardwood floor refinisher+xldGpsdxwV6dPSgo68YxT3X0U33L6uBut03vlDr [file] C+ndl1n43v+lWcfCO5KL0bFzj3Wxs+meNzWsD [file] /H1CE+WBbUoinpixfkPuxH7F8uKfy+3bqCi61w/product development manager [file] abdifatah+NF7loV6kV9ooC8gS5RqzKajP0pICH7pFMCgC2+m+p6s0BpsCInB56QhLPaI9N/LKEM8gaG2U4Xlf n4uNThmDF6Ana5Zt5aGuYMUqsvSxeorm/nw270Wqyz OOeiYnWpJh0b+u/8HVvMUq6KCgJpiR7+Azmg4A17fCP45aUWKKe0UpWAs8mmoka1uaKvmmeNfME0qCrp F9Dc5DQHPxi0acuCld2PxZk/e6dmsgAWvF+yLOJh/MG99tE34xX/r3e9lAm1FwpsGFjoCqsd0O+MNj0C qeZQ1PBqvPF6EMQyoBGbNhiMyYg7VJWT8iFBjwBL21 GtpT7G+SNykRKE0WopjJSYQBMzS9RWYT/FyZUWDyV/N7puMqf8bDxkuJ0+Onea3AgBpAuW2cgS/7LdL0 n5bsYIAaFqKaFwgMQZ9Zl0pB0ZO2xs80sSEIq7zxEux3y43kWU7r38lObgagNhE0UlevFAd++QE0ujxx AB6wYlAEU6b+fLXzrvMHRS291anykN7qy7zqsWXMCU oNDiZzeOz5WXe00hzUoA+3Iy7r31setSKUYF/fYIRxpWtAbirSNT3GkzrH7Q/u6PEp2sYB/CaKwfxHmE whmN0bQIM8n+Q6iwcZ0V3thLKAkE6yhd8ZfO03kkUCQwAZCoazLyDvRhPdbXh282Br1PTF+j5VevIEsw PJ2UmxB+78/OFm/crv5RkH/JzdEc5oPayk5ZKcjzoQ T/5pIoyKDoez9V1WDOSLPUWN6KhMftdkTbtRfvKkMwH9+3lDFVWpRUvUqE8E9eT7KkDvUjvF0FjyiWPN wpY5GzwXTLiUWZp3+wabK8xtanRRpvsafqUqm4LUAHY4l+vvLbamdaorlefK1DsOUwAUQm4Ey+gTtmVU HDMOOsz3VRl+mGLOq/NTSrZQSbHGhQmLr9G3puALd2 qnOEkz7fjg74ZgECuogvgbRZJLctsVGNcyp7iwLh3wNIqF/r3QPfiZjBGXQsFvuWELECOB7UpBy/IlFO dish network installer+Q38lcnWjTXZCSuJ1p1WnWDmFf0ykyiX9KcrnxkTR4LfdVm0vH1rWbVfIdM6pAlUWN/KCWjKdqf4K [file] Ud27WOoSaBC/u2uvom8xi+pqHWpOopqcRn1T0j+Bone Cooking Operator [file] QiNwGdG0ZuaIXPV3WHlinIqW7VkVrDQYLZOeVt8kNQAefQ9pxfNlGCaEfm5Cg+5Iez3nLfbQGhbFK/Carlos A [file] 8Ee7ik0+9fyeEGTqiTCgfjGykcZ/Kristian/l5nNNHfjCLe hardwood floor refinisher/Qe+yddGVxnJPg0k0Mqg/mn0nJBN+edyLe+pDhyYxK5wp9L4Y1sDOjC+51L7BB5DecGDfOjyg2w/Gr [file] P4+69Ejtx7HgzLknFVVyjKkQHW3wUxoqJHOxJN [file] CARLOS A+msB4TWp2vrWZHjTBAsgGg0Alc/HO1Vk1JrSbV0uSARUbRzAFcPQAc2idUycTD8OZ6TIgG8m0h4iwr [file] t5dtU+Tf8b9uIHuwS9EpbvYwwUIZz0D9OUVmwc305KG+zZUUd6mC7F/hsQVDaHeON9L9Q4nTFzrdZ/Walker Po4a9wx+GKmZxb/vNMti+bqyDaDUqT2fQNe [file] SrB5LSAi0pgl2RLsAaYa7o6ZNzVekbAcCZa973tQ0B6YNMvzbH5ieOvbvcq2Dp9Wu+qiOYNjMef4+[place] [facility] [place] [file] 12iO55eAlID15yr2GuyxzNGndMhCF65VMRVEpKJ/Carlos A tkqbzQD1WseGDFo+HCa/Syycxykcw1sVm/64kXc9TU6Q+jb1vT810/y0kvRB98c9y2dilbmAUZpMHoia Z/2S3CEZOjaFC18KbHbDztx3raYWyJF3VORLkuJbT/vuma+qk9jwGEk/zjVOZgte+pEes9wtC3Pmfg83 dV3GZAaVG3FJ11GRPU6nexP8WJhYXXntHSeptWWuP+ Y14P533hIbwqRAQy9gsbCswUWEQdr2dg5hnP+3s3IEGhLLo6RJU3TCFJjdDKPv0AChld4J3hXpVhomah xlqg02lOwK1G6X24T7KcdKk2T1ks7s5yDkw0GMx14alyET/Wgjm07Q0U8iPymLsKh6NsvH+luwJN2CBI gfLECOWk+zfuKwhMFJsSHeT3xVcYswINIEJKn7wg0m iZF4/xnRnEAE4GxCtLMea8QaiLsKhE3UCZhpWeDIL03bJ2AESIiBNKTJxuGwKwnYwDwoLVHNrbYDJ8tf dGLoWxnblVOjatRPzFDtR/R3yEfntrM3Hf1eJJ0pJuXo3PQKTgg0v3ipmfXH63pHrFDRgUVVSsLRwT9s mGeZPFKtVyT/Okt+F9gJyufbAC3FzeLZoVAq+Y0/ [file] 3rZ6/BbCuTBcRXLGxxejXQRGIVYJOJdKUhJcKdyYIJzyU0ZvB+PHYSICIAN LOCUMS URGENT CARE/5fyoPliEVw2I+geQEH7xRJI+uF HOQJ+u00u7t32E55mxgEeoi5bNRiuYwO1/H81kNxr1HY8ss59Unfw1OY4s5xb/5/CREGqm3zMhmuH+1P t/NU+FIeQ6WPRV2iTmBInDi53ba69+oH3e9GZc6FT9 aXgpZYG46NjjLsSWNrofWjzbsQ3c872/r6kDxbvA3e2HMqtN7zmMeODpF97/5LyVg8u5rTeg0nQIiR1o 6wnkIIkrE0782gns0/rg65WvC5u18tdTgCLg/dfj23Ph1u9RufHCMeZAoB+jzuZXIFl2Kz8YF0XUwieP oD//lvECt2Wh/WeiujQRSouvEIYbPHT0MSREXkI/Bt NZHJkxwegyu2ZyaQz4XHw/vwJ8uCy1wb6CXOFZbnZAI2lpuknWzfjFpX+iUjaGVdil6IjYpjlN1DyQsC BukDZnXcqECZKWjMYBSanVRxGzkHl+BU3ZBXJE3k9T2zpnOoShQBLSXngjDNs2iFm9AsVi2U/Wahn90O LUBDNOAfWELE8K/O0DA0jFUKZNqXDOUnTvD0vgMvwG [file] 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+Cu5CeHEP0v9FqUC1mUpb9JI5JVmLizmrXgBppMb [file] ifDO7vmwOXraZF8uGeL/u/va13+Supervisor Coremaker+vZzJd337Rk+J16vDOwhfOxsignavh2Iw2yxJ8n2FAQPjWIYD+ [file] Yk5X0rEv/tM0P1MP//6H/pXf//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 operator/3SBxk81CqC2el [file] Carlos [file] f9ZKcUDNh4iioGyNtfubt7H02u4cGn7mIdYb9MQy4buBG36tSlHQ4z7Yvv5Ue7sDUdwXyoKFbGMd++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 [file] AgICAgICAgICAgICAgICAgICAgICAgICAgICAgICAg ICAgICAgICAgICAgICAgICAgICAgICAgICAgICAgICAgICANCiAgICAgICAgICAgICAgICAgICAgICAg ICAgICAgICAgICAgICAgICAgICAgICAgICAgICAgICAgICAgICAgICAgICAgICAgICAgICAgICAgICAg ICAgICAgICAgICAgICAgICANCiAgICAgICAgICAgIC AgICAgICAgICAgICAgICAgICAgICAgICAgICAgICAgICAgICAgICAgICAgICAgICAgICAgICAgICAgIC AgICAgICAgICAgICAgICAgICAgICAgICAgICANCiAgICAgICAgICAgICAgICAgICAgICAgICAgICAgIC AgICAgICAgICAgICAgICAgICAgICAgICAgICAgICAg ICAgICAgICAgICAgICAgICAgICAgICAgICAgICAgICAgICAgICANCiAgICAgICAgICAgICAgICAgICAg ICAgICAgICAgICAgICAgICAgICAgICAgICAgICAgICAgICAgICAgICAgICAgICAgICAgICAgICAgICAg ICAgICAgICAgICAgICAgICAgICANCiAgICAgICAgIC AgICAgICAgICAgICAgICAgICAgICAgICAgICAgICAgICAgICAgICAgICAgICAgICAgICAgICAgICAgIC AgICAgICAgICAgICAgICAgICAgICAgICAgICAgICANCiAgICAgICAgICAgICAgICAgICAgICAgICAgIC AgICAgICAgICAgICAgICAgICAgICAgICAgICAgICAg ICAgICAgICAgICAgICAgICAgICAgICAgICAgICAgICAgICAgICAgICANCiAgICAgICAgICAgICAgICAg ICAgICAgICAgICAgICAgICAgICAgICAgICAgICAgICAgICAgICAgICAgICAgICAgICAgICAgICAgICAg ICAgICAgICAgICAgICAgICAgICAgICANCiAgICAgIC AgICAgICAgICAgICAgICAgICAgICAgICAgICAgICAgICAgICAgICAgICAgICAgICAgICAgICAgICAgIC AgICAgICAgICAgICAgICAgICAgICAgICAgICAgICAgICANCiAgICAgICAgICAgICAgICAgICAgICAgIC AgICAgICAgICAgICAgICAgICAgICAgICAgICAgICAg ICAgICAgICAgICAgICAgICAgICAgICAgICAgICAgICAgICAgICAgICAgICANCjw/jRRpX3kjfZNafoJ8 J7yvRk5UWc5QIA2xj4XcUHBgPQwdovDvVvbRIeItVUPwHwwRDxp1PDouZE0WfLVpP4KzA2XxGHadPS8V CHBaUTUynGLtSFHrDCHsCeA3TZShXNfzLH1JwUEoPP npDFTrZBCxBlXtHKIeOMSyDCAxWYIoPLKMLZXdJIIcDrLpCUNxRKIkGIcsRZSQSAA7SWUjMmNtVIkvFQ 4Hh6MryKF2XBa+Xn3GBV7aj6ZoQUm1NRCoYK6osa9CJZsDNtCwZ9OtcsY8GNW2SYFbLx0TVQIaAZWhoT P3YKSbQPFGNbPuM8JttC61RGUAZk4+DQplbmRvYmoN OrT3IAMdf7KuSFu4TB2JFZVnZYc8eGDfUJYRVMX3FIKtjRnveZQYYVIalRYhMW2GPKS7BIhjCuOfQjTt ENJgGYspBLZCEMmSQeIjO1Zwa7YfHrQ1TXTnQeIdJBuiWETgDkG6SW46sTjrYY5GCAGfZZWoEC59EAV6 TOEiFj7XUl9OFcWcTF9djl2MVENhHCWhHanQPti8DI ghTS5WaZJzV1TucNWjh5yWUlUtL0GIBFHjOAFyOb0CGIIlFiLnEHJkKMbaWG7sCBAjPECRlZtzkuJ3UO 3JEN4cymAuAJ6SHsLbVp4rMe6MUwVoF7VsJ0XaNUTiWURQVGtrNY8DTSglSP8eXR7Uo5GIbOReeM3ljf 9QUHHlEFSgVroosm0MLspdA0F6bOiiLBFyDZFqEXBO OBtcBX1JANQdXZO7VWZ6GbWcIUFFMiJhY45qCI2BK9Bhu64yJwZ6TKUkPjLnSBvrMI64sMcdraZtnSGa aQcjOM1MQn8+LEimteKdQyvNNkerMICXPmFgQNiHYtYhJATbGNWnBZGmUeY1UyZjJv7BZOOwPDUgJQBd WuXgLNWvKDBoBSxsWOVoGeS9LWq3FPNlWZNuRB3SHz QmMMV5CpntRYZtOIPjTAVege9FUITqCUIoPXP9CtXoUPHuZSRjHKfzOOYwGJIkRVT4EOEtKSJxPE4XXk PkOVGwWCIkQPtiQATdTVBoql1HIXJeFCBxOtS2QBYnVDEtTNUwGZrnLAXeTFY2FJr4THZlQDKaKL9LNk SmRSXtQGmzGMGmRUYnLDUmbm2LYWDiBIZwNOH1EiSa EAGmSDChSQdvRRZyOCMpFgB2OPPlJTZqWB6IJzOcLNKcMTY4TxAcDKFjMNBasi5HZIHpVNZgRpP7FYQp EPCnRZKvJOvzMRHzANVkBcS3NSChIJGpZQ2JCpSfCXTsPMLcIWFoUAVxMPDxlx6OJUPmBMEiFqK9QVGg SLAaUVYkQMfcKTVfZXSoQJD3XIKiZIZaCZ6RBiPaNJ RhXEQlSBEpAWBuHDZjof6IYFFuLUUhLxLjWCTvNWNjWOZmCZbyWFRqMNZ7KxJnYYCkGGKrTO3HVtBnIS DpHYtsEAlzPCLkCQTvgd3IJAIlYKXmOnXlBBThOUEgVXCyXWfmZWDlVJQ0Pbu4TGBtLGYrTP7UQzOdUS BvRKw8YJdyVMOkLKUozx7TATTdCUYgREl1NeFbKKLs VFJqGMvkSQNrWVQ0LGU0YDBnSCGwPG1TTlLwCPJmKGk2JBywGKOyYDJegc7HPAEvCQNeNPV2VZVfNAPm CQHxOZpbXPRoHSOoToyzYEAhFQIcDT8LCpLiAZYiOoDiFvRoYVOfJQPbwz8PTBTdEYWwJKDrVxEgSXPi ZZJwKNhtFCBuRGVcMvI5EIOgJFUuEW5GPrMpMJEeMr N5QpCxPAFxMHYuib3YIRAgKUXgZiq5JoNqDILcXASqFMxvOSGtIHCjTIjzBTNqUZQiUX7VObMoLRVpAs KxZiYvPMGfICIqnx5FGNIvOGQzYXK9WjTbNVNkTYCuEPzhNONuTNO2MGWjQGJdGBTzTL8WIrDpDZEqYp KbShVvUAFbGTRsap9KFIWyUVJpKfN6QQGwSIRqLFHl HQeaTRTzDMF4ABPmRLIgOZTlAG5UGfNuJTJ3EeD2BTNaKSUiPHAypl3LEQDpKjPyOns3FWGgKQKeKXXd JWcvRGHaCwV3NTR5QPBmBYPxIL7WFsJfPAJ2Vlo4WoOiJZOnXIHxtl8PYYXjWsDwKMK1ArXiCHZyEUMn WNf1uuIyuSZiUOr0JK3DY9XgjuZfVMsAYp6Hl594RM I8DFEmPc5ZQ0jwEc1xOYTfRNPCYg0WDWh7SyDnMiIvKrTcY3J4XcP2HATdLHH6OZtpSmNjIRJyF6K+ID glAAOfYGJkIhOgFPA7BOgjRDHsPapzTUZpZTOqRjCkJN3ePJVBQg7+HGfwtUVfwXjfQJAVIzG6Orw4BE xLHcIwMM4THUs= ID Date Data Source [id number] 05/02/2021 03:30:27 PM EDT [facility] Name Value Range Interpretation Code Description Data Arabella rce(s) Supporting Document(s) Progress Notes [facility] BQJWGw9sRvUTNnXl15/QIMnxOPVlu5UaKPvwXUx6LSoqTOClV4MqLMB5zW9vHOY9CSuOScBkYkJeZPA6 lbm [file] S4tmJwNHtcKjytBV4RFVVRY7OUMd== ID Date Data Source [id number] 05/02/2021 03:11:58 PM EDT [facility] Name Value Range Interpretation Code Description Data Arabella rce(s) Supporting Document(s) Nursing Note [facility] WCUVHu9hJfVCEdRl71/LALeoSERoq7WuTWflMSn6KMmeBXOnC4QyVAY1hF2lFAV0HBfDEgYoBgXfTWP8 lbm [file] KiW7MNJfYWZuZQUzIuF+OT5hYYa+Ow8Qg3YnhbO2bbAaLJdvJBa3Gc9OALFWS0BSWf== ID Date Data Source [id number] 05/02/2021 03:01:14 PM EDT [facility] Name Value Range Interpretation Code Description Data Arabella rce(s) Supporting Document(s) Care Plan [facility] YGOFJl5aFfXGGmNu36/ETWkwFLLhn6MiEAbhKQg2DNrwZHMiM3IhQMT3vJ7yUSU0UFbAXhMaRiItZZQ1 lbm [file] RwLI6IQIz= ID Date Data Source [id number] 05/02/2021 02:32:34 PM EDT [facility] Name Value Range Interpretation Code Description Data Arabella rce(s) Supporting Document(s) Nursing Note [facility] RUSBJb4iZdJWWzKx95/VTVcnVXIbp5GeSDmzEPl7KKswTKXbJ1OxVNR2hC5oHPP6LQgKVtVaZrWcOKI3 lbm [file] Iu1MHpY9OFB8bKSzCc6CTwZ5HEICAbPnSC3ENCw= ID Date Data Source [id number] 05/02/2021 01:51:03 PM EDT [facility] Name Value Range Interpretation Code Description Data Arabella rce(s) Supporting Document(s) Progress Notes [facility] QHNQMg1eHsUWYxBz50/GTBshYUHjn2MzURwoFSl1AJdmWYAyB1GtPOZ3oX2yKZK9ULpPDoLbHhNlZZN5 lbm [file] b6QZ5TQEQ5CHRsWl3YTHLsBR2XYVNhMLFvOGXMFbVn GSHwZzGtQGKqLRRLSOkiSBVsQ4KwASX2IVOuDd8VZKRpQU5XLIFzDyWcMOE+Yn9ZLJBlMC8oerHozET4 TRAFFIC CONTROL SUPERVISOR+Zc9OIVBjJVi9D0R1FURpCQn0K2ALR8YQYOStFLugOCucAKPtJUz9M0B7SLUaE6SXE0Gmtlkpin4+ DK4WR19ZOXEtIHz5T3B6gNOcO3S7bRoZjUR9HH2FKB 8WkUn0hROjxE2+FS3KN7AQSpWzJVc5L8R2iANwZ5N3lGlAlZV3VV4EBP9PhKYxDKEvuxSvEn3vD1LYLV vBCfLTGPO5YC0FcKVeGR9CgDUZX1QqtBJzMz5nHMbacDJonY5vAm3dAOiyOQ7AQkZSZAoNMIY2WD0EhY CcLZ4XnEPGJ5TpgXXzCk3lXAtueJSssw2+NA7WGJFv Eg6PEw9+FPpnlsPsDpsEIjW6ELTwl5HmJXp9XS8JQU4xkBzhJLE1Az8McIB2dVKhD9vLUX1UaDIbX81l uJJiSWPkGs8ZPoL1eoXmzD3VIN91zGRzp0T8CAKaE0gcOVtxl20gLFkaZSmCXQ8jSRDZCSqoHKhdQYL6 OmArrnnuVQPeUf4QZzLmMMu0mU8ofGF6HNK9WlarwU OjEUrbDmCrCyIySlK0pPltbim4JXmgTP9xTHmopfjwWTHcCst+LYgsQECfFVImOtpQWMCaiP5xmdH3vj NpLFbsfJVeBr5ts2t8ZacaQf2vBs1nXBe0CbMxVrAdGZEzUx3taL43BWlykhGkJm6ZIgUwNGE7X5RkYn pSREY+UOmjMOvebMh3dBPtNYMiGd0QQYPrOIJuHEQc ICAgICAgICAgICAgICAgICAgICAgICAgICAgICAgICAgICAgICAgICAgICAgICAgICAgICAgICAgICAg UGCiCDVwFSZeXGIlSLPlSJBvNMYxDFXoHOEcXHQqIS2IROHuBIVhXSOoDSStQIZiPCEbVZSlXIKkOZRo ICAgICAgICAgICAgICAgICAgICAgICAgICAgICAgIC WhOMHnNTZiJXIaGAWfOGQvVJIrKCRaKJDsAAJtEKDdDNPqBCNhSKVnHW8FLKGoHNSqCMQfPOVbOXLjZE AgICAgICAgICAgICAgICAgICAgICAgICAgICAgICAgICAgICAgICAgICAgICAgICAgICAgICAgICAgIC CeOTSuQWOhDFPiZADaMZReQJJfRGArZM1SCLSsGZCc ICAgICAgICAgICAgICAgICAgICAgICAgICAgICAgICAgICAgICAgICAgICAgICAgICAgICAgICAgICAg DRWlYJMzRIUhULLhUJBsJTGoUVXyLETkHPWvYVDjEKCfGK4NVGJsXIGxIRChWURrQSMvXFVvCTZuXUQd ICAgICAgICAgICAgICAgICAgICAgICAgICAgICAgIC HgOOApEVDeBYBrAQUbTYPhFBEuDQFaEOYiSXDuCGFhAZFrZVFsBQQgLMHkSQ0KDXSeEOYzTZWdQEJsYI AgICAgICAgICAgICAgICAgICAgICAgICAgICAgICAgICAgICAgICAgICAgICAgICAgICAgICAgICAgIC McTFCvVURuNWYqURAuBDLrXELoZAItWRLdZW8AAVIm ICAgICAgICAgICAgICAgICAgICAgICAgICAgICAgICAgICAgICAgICAgICAgICAgICAgICAgICAgICAg KTQoCOOfVXAkFYQxTFBcZFXiOQDpTVAzPBIvPKLfRSYwAZIxGJ4OIHDwCABjGEEiSIRfEESdVNEzWUZp ICAgICAgICAgICAgICAgICAgICAgICAgICAgICAgIC VyLLHuILScVLMdFNDxVGPaPNLqBAPqBIUmMAYkWXOsOFWdUVAiIKVfEFLwYCZiTI4EFHOwPKKlDZWfJT AgICAgICAgICAgICAgICAgICAgICAgICAgICAgICAgICAgICAgICAgICAgICAgICAgICAgICAgICAgIC WhPHOjZTNcGIUgAEPoUUYpTZEkWJWkBKKeDVEtGK2W ICAgICAgICAgICAgICAgICAgICAgICAgICAgICAgICAgICAgICAgICAgICAgICAgICAgICAgICAgICAg OLMtETMvEWHfEGMuVWOhENFmEOLqBUJmLTHyGXUdOTGjMJLpAMJcSW6QFS00mMUkm6I3KZEqVP7vgki/ Mx0WLNelhtEklPVlKD0DMqQjDG4uhk1WSkPbFZ8lxx 7IRQwWSpVyT4A1cQJxVYPxLPURYxIzA62tERmdJf94QJsgIVUoZlVrGTt1Pt2JPuRoF0hnVTZjQuK0NE RcHiSpMCdlWB7Nb2GvpGRaNIp+Ck6OID5uy0XsFBizBWObGR1fev8PGGgHUhNyP5UuosW2NXW5BYFjRj 2FZZLwDFSvpNJwDoZlJOEKFjQxD4TdjO37KBDPHl0+ MXsaqfOgZdiAThE6XOVxp3HhRAm9GT4PRJPnEVa9bRBfOGDsC5Djr2IwYc41ZJStXjowHairPsMPHIft UXO5GIihDpItTcBlBVZtTWm2YtHGWOxNFoIwR7Lzy0UiSaX5NJJrUjZxYGtmFBZuTbD5EG81lCkfIV7H IRRfMVHsAL01QOZ2PQNaXs5FNm7WHdSoRN4kca5DRk smDFBzGcvNUhh9NZgiBN5BkHFhR5KrmIIzs0nMFdHmU4OVHGNfNEQsUl3KNHFyClUxAGMcYKmyKM5bIE RnYMANaWgxraF8TO7OYT0efaSyUN1LRxNlDc5tDc5SUkQvJ4HjN5SfLLPqISEAZQamEW4RSVrjYQ6cWV 1Gh7BKrPRysR7lqk6ZDYAcGMKcBmkkaa3VGnbmL5S9 tJigIMJsLwDiSTJKQScqSG3ATMEpIKB4CLMfFPCjHSFNQoYwD64zXE2IR1Vnl58jJxB3FFYzSaBqAImz LN39gTbjeoRxdUHnfDtcOP5RHy2+AJhwrjWnPorSJztaMKCGKqZpRzlMYwYoHUZoZAWfMHWsKzI1KlOl Bx4XSWDjYRHrOIUfWsFyTVOkYKEjRPbnZHBqAXXhHS U2KITzDINpHZ1BZpLxDVCmWxH5OnzzCYQlWIVzvp2NWWLyUOQvNYX1BoJuTMMjXLMtNKbcSANeXNEbIl D8KOJvJIDcMA0PWgYiNHMaZUI7QOSpODWaOCJyns3RQUKtZRXqAcZkBCHcGPSoQAOjZZysVZDwYXVwBe HrFJGqDOGpEY3CVeAvKJByRUQ7OSelIICoGNJooq8M UXMjEURlDKq0CbXiVRGaCDMoVZhsHOJeWQG1XIMjKJAcJUAsBM8WYmNjIMDlEZLsHrCsGESgMOVzox4D QNKrGYBlCcM8BDBjOMSfPUXmRXseTOAwHLM1FEwaRDXbZCCaVE6RHtSoLTViJFaoMWobNCBgBLXald9D BFVoBGNeXTPqDXIkXDVuOLIbGAujHBSmXAB3JOp7YS DoZKToWD3FVeOjWRHsKWg0IrjkQIYiHPEkdn9SLVWoHXYuPXRhRYUrEZClKTQgYKlvGTZaWLI5Slc6JQ RhUYRdTX0FTlUvIZApZwS3DzbfVPNqALWcix2DFRYyJZXxFMwoHPYrAHDsDAOhOEpaZSRyXCOtVBe3CT IiOUYfKY4HVnMmIXUrGvW2UzxxNGPjYRQadc1FXGAr OPNmAqs0UbLpHHAiHNFnKUacJMMzLGWuQYH0FOCwRKWqQP3WLcKdZZZzDvZkNarcHVKjODNksp8AjGOz qEhkkr5XPSxAQv7UlMnnMBZ2DMoaDq8kqZHjYpLuEYEKDc6HmiYiKJEsPFRIQCeaKSNuJTI2FlbgWGG4 ZGEaPaYpUSLwRkV4MIItLrTtOgTmV2R3RqT4ZAUiXJ EvSRglFZKeGKM1JHWaFEH4UqPsLrWuVIR0PRk+PZ4wIOb+Lk6Nd0JtyfJ3ygUsTZrzLsDnOl1XOUSHO5 YNCg== ID Date Data Source [id number] 05/02/2021 01:17:00 PM EDT [facility] Name Value Range Interpretation Code Description Data Arabella rce(s) Supporting Document(s) Iron Saturation 27 [facility] Iron 97 ug/dl 50-170 Normal (applies to non-numeric resul ts) [facility] Patients treated with metal-binding drug s (e.g deferoxamine) may havedepressed iron values. Total Iron-Binding Capacity 362 ug/dl 250-450 Norm al (applies to non-numeric results) [facility] The above 3 analytes were performed by [facility] [id number] [facility], ,[place] [address] ID Date Data Source [id number] 05/02/2021 01:17:00 PM EDT [facility] Name Value Range Interpretation Code Description Data Arabella rce(s) Supporting Document(s) Ferritin 9.8 ng/ml 3.0-388.0 Normal (applies to non-numeric resul ts) [facility] The above 1 analytes were performed by [facility] [id number] [facility], ,[place] [address] ID Date Data Source [id number] 05/02/2021 01:10:00 PM EDT [facility] Name Value Range Interpretation Code Description Data Arabella rce(s) Supporting Document(s) Vitamin B12 324 pg/ml 211-911 Normal (applies to non-numeric resu lts) [facility] Folate 21.37 ng/ml 5.39-9999.00 Normal (applies to non-numeric re sults) [facility] -----Interpretive Information-----Folate Deficiency: 0.35-3.37 ng/mL.Intermediate: 3.35-5.38 ng/mLNormal: >5.38 ng/mLPatients routinely receiving high-dose biotin therapy may show falselyelevated results. Additional information may be required for diagonsis.The above 2 analytes were performed by [facility] [id number] [facility], ,[place] [address] ID Date Data Source [id number] 05/02/2021 12:27:00 PM EDT [facility] Name Value Range Interpretation Code Description Data Arabella rce(s) Supporting Document(s) Hemoglobin 9.5 g/dl 12.0-16.0 Below low normal [facility] The above 1 analytes were performed by [facility] [id number] [facility], ,[place] [address] ID Date Data Source [id number] 05/02/2021 12:27:00 PM EDT [facility] Name Value Range Interpretation Code Description Data Arabella rce(s) Supporting Document(s) Hematocrit 30.7 % 37.0-47.0 Below low normal [facility] The above 1 analytes were performed by [facility] [id number] [facility], ,[place] [address] ID Date Data Source [id number] 05/02/2021 12:25:00 PM EDT [facility] Name Value Range Interpretation Code Description Data Arabella rce(s) Supporting Document(s) WBC 5.18 x1000/ul 4.80-10.00 Normal (applies to non-numeric re sults) [facility] RBC 3.71 x1Mil/ul 4.20-5.40 Below low normal [facility] Hemoglobin 9.8 g/dl 12.0-16.0 Below low normal [facility] Hematocrit 31.1 % 37.0-47.0 Below low normal [facility] MCV 83.8 fL 81.0-99.0 Normal (applies to non-numeric resul ts) [facility] MCH 26.4 pg 27.0-31.0 Below low normal [facility] MCHC 31.5 g/dl 32.2-37.0 Below low normal [facility] RDW 15.5 % 11.5-14.5 Above high normal [facility] Platelet Count 213 x1000/ul 130-400 Normal (applies to non-numeric results) [facility] MPV 10.0 fL 9.4-12.4 Normal (applies to non-numeric resul ts) [facility] Nucleated RBCs 0.00 % 0.00-0.20 Normal (applies to non-numeric r esults) [facility] Abs. Nucleated RBCs 0.00 x1000/ul 0.00-0.02 Normal (appl ies to non-numeric results) [facility] The above 12 analytes were performed by [facility] [id number], ,[place] [address] ID Date Data Source [id number] 05/02/2021 11:50:00 PM EDT [facility] Name Value Range Interpretation Code Description Data Arabella rce(s) Supporting Document(s) 01 - Product ID Red Blood Cells [facility] - Unit Number [id number] [facility] - Cross Match Compatible [facility] - Status Info Transfused [facility] - Product Code [id number] [facility] - Blood Type A Pos [facility] - Issue Date/Time [facility] - Specimen Expiration Date [facility] - Volume 341 [facility] The above 9 analytes were performed by [facility] [id number], ,[place] [address] ID Date Data Source [id number] 05/02/2021 05:35:16 AM EDT [facility] Name Value Range Interpretation Code Description Data Arabella rce(s) Supporting Document(s) Nursing End of Shift [facility] MOREVx8kEyIATgQv36/ANNkgNETnp3OeTDvxCPn0FScoEPEvK5ZtUEX1aC1dVVI1CYqRXzLnNrVyTFI9 lbm [file] ZrfBVQZr+vsH48/Qbc4uQo6muUBxCguF/zI8/p [file] ICAgICAgICAgICAgICAgICAgICAgICAgICAgICAgICAgICAgICAgICAgICAgICAgICAgICAgDQogICAg ICAgICAgICAgICAgICAgICAgICAgICAgICAgICAgIC AgICAgICAgICAgICAgICAgICAgICAgICAgICAgICAgICAgICAgICAgICAgICAgICAgICAgICAgICAgIC AgICAgDQogICAgICAgICAgICAgICAgICAgICAgICAgICAgICAgICAgICAgICAgICAgICAgICAgICAgIC AgICAgICAgICAgICAgICAgICAgICAgICAgICAgICAg ICAgICAgICAgICAgICAgDQogICAgICAgICAgICAgICAgICAgICAgICAgICAgICAgICAgICAgICAgICAg ICAgICAgICAgICAgICAgICAgICAgICAgICAgICAgICAgICAgICAgICAgICAgICAgICAgICAgICAgDQog ICAgICAgICAgICAgICAgICAgICAgICAgICAgICAgIC AgICAgICAgICAgICAgICAgICAgICAgICAgICAgICAgICAgICAgICAgICAgICAgICAgICAgICAgICAgIC AgICAgICAgDQogICAgICAgICAgICAgICAgICAgICAgICAgICAgICAgICAgICAgICAgICAgICAgICAgIC AgICAgICAgICAgICAgICAgICAgICAgICAgICAgICAg ICAgICAgICAgICAgICAgICAgDQogICAgICAgICAgICAgICAgICAgICAgICAgICAgICAgICAgICAgICAg ICAgICAgICAgICAgICAgICAgICAgICAgICAgICAgICAgICAgICAgICAgICAgICAgICAgICAgICAgICAg DQogICAgICAgICAgICAgICAgICAgICAgICAgICAgIC AgICAgICAgICAgICAgICAgICAgICAgICAgICAgICAgICAgICAgICAgICAgICAgICAgICAgICAgICAgIC AgICAgICAgICAgDQogICAgICAgICAgICAgICAgICAgICAgICAgICAgICAgICAgICAgICAgICAgICAgIC AgICAgICAgICAgICAgICAgICAgICAgICAgICAgICAg ICAgICAgICAgICAgICAgICAgICAgDQogICAgICAgICAgICAgICAgICAgICAgICAgICAgICAgICAgICAg ICAgICAgICAgICAgICAgICAgICAgICAgICAgICAgICAgICAgICAgICAgICAgICAgICAgICAgICAgICAg NLQeUOm1L1qeZCUuCEUnBA6gODy6Km5+DQoNCmVuZH Y8aeLtrV0XXT3zt6NrITyfSWDmh4UeOYu9XP9JLNGnBRbgEY6KPIcdca9NXMFuWMSffWSFe7jgTrWrHT L1WNCfGvgpOF9JEOItN0moskAhXRYdOBRDOT9CObAoP8HjoA95KFWEVo8+AObfkiLhTxoEEoY0MKRil2 VzIEh9UB1OFQBiEwhok3XrPvWwMBDFDEncGL1JFYD4 YCS6UCUbTg0FAKLjW418apRuTL3HRu3RMzHpRS7owg1AUdNmQHOwWlkERgu2PDiiCY4CkXZqQJwRtTOm gZ7nVDChDTKeBuBOrGvetSGhySHZoANiEYWlCHhujdChTPhfGOXHUYT5SMteYgZuIrKyTHWnGJgxTvNG AMmBAqMjR0Cnl9WuRrQ7BMLwVtYwZAjeJCDrTmG2HV 46wXcmNA0WWNFjDVWoRS05PVY9KXGjDr5GQi0XJwVbSF3fmp1FJwjaXSTqEesSMsw8MWzyHP8GsUNyW6 ZixDTsg6aBNiPzQ2PILNEyGOOsDk5FUYCxNlOdGWYlTLawUV8sGVNrAWQPtNwfmkN1NK5GJU2jkmYfAR 4ORjEmTk0gXy0QPmAfA6ScS8JwHGNjVTWHLMswCX6K VCbhAG6lGU7Yo3NApVRlzB3okh3ZKXAvYWJlQhekxn4UQfdtN5E5fPrwJPAqYyNbLYFKMGjbLO4EEDOa EBD3SMMeUZVoVZAJHbWiA91hTA4LN5Vlx06vLaA3RZIwEcMrHMvoYE50oIosxoNyjQTutYjqJY9RAy2+ DQplbmRvYmoNCnhyZWYNCjAgMjgNCjAwMDAwMDAwMD YnWrA6YrSaVd4MWMVzFKZbJRDfFiFhMIWpIXUeGGsxYROsEMYtHWL1RLFjGYAoGQ4EVzBqNTHrWwPaIS UlJAFbMTXdvn8WFWIbTTGcJCL7CuZkNAMvMHNmTKmlXJBsSKZlGzQ9GQCqSFVxYW2TGtWwVZPcNEP6Ii KhOJGiAWXpua5CCKOxERLwXoooGEQzLJUzRODyAOkv BLBaRYOgLSV3FMPkJOWgNM1HNvUtGGSzWIUsAHVcIXRnOSZfeg4IVBBoLTCaNNO6LkEeORKxAWHfECmc TTMwIRI1TDGtXAQvJUMlAK4FXvOkZNZiTNQ9ATIqIZZmLOAptd4RRQEkCPPlXef7JWKwKADiQKBdCFjg HUHlIST9McV4KEViDPLhIO1CHbAvYQIqORd2RKKzYV ZnEFMfne2PZOGzCAWvOoy3MvJmFZUtUWIgORcbCCSeCJT9RBUyEIClICHdUC1AQgQgNBEcKFo2BYFjQD AuNUJkzn3PWOKhPWOqGSIgJXSvOADuECVoZIksYBZdJLC1NeXsDTCkQHYrQJ5MQcBiRQPrNbWvLJOvWX ZwHLZpoi9VOWQxYVLpTOXeQzQxALNuVQHmQTrtRQZi UVUoNJO3FCWcITGaSJ9TMsFaBOPjSyI1VVZtLONmDCDucl5VMBGqOAHsBlN7TGVaKBMeFEYbFYerJHXv RANcNUH9RWWaKXLkJV3AYxGuHSOjSxD5MQZtWEDyXDVoqm9DgVUzdOfnlt5EUFmJLw4XjOjoSXD6ZQrq Pi2quQOqNsSvIXOAMq8MybExXANeICYBJNthOPYgNV JpIhsvSNGzFZXeL7VgDAO3QUP4WfReGLGcCRVoGPy5RqJ0J7LrIHH9OZRnLSFiUVI0MSr0MzWzXANpBE IwNWNhODk+BL6aQIo+Lh7Am4NvyqF0qtFvHGhzUnx2WF3HCZQBB7CDZq== ID Date Data Source [id number] 05/02/2021 09:59:00 AM EDT [facility] Name Value Range Interpretation Code Description Data Arabella rce(s) Supporting Document(s) 2nd Confirmation Type A Positive [facility] The above 1 analytes were performed by [facility] [id number], ,[place] [address] ID Date Data Source [id number] 05/02/2021 06:18:00 AM EDT [facility] Name Value Range Interpretation Code Description Data Arabella rce(s) Supporting Document(s) ABO-Rh Typing A Positive [facility] Negative [facility] Specimen Expires Date/Time [facility] PATIENT HISTORY Pt Hx Checked [facility] The above 4 analytes were performed by [facility] [id number], ,[place] [address] ID Date Data Source [id number] 05/02/2021 05:24:00 AM EDT [facility] Name Value Range Interpretation Code Description Data Arabella rce(s) Supporting Document(s) AST 14 IU/L 15-37 Below low normal [facility] Sulfasalazine and sulfapyridine have the potential to falsely depressAspartate Aminotransferase results. Baseline values before medication administration are recommended. ALT 56 IU/L 13-56 Normal (applies to non-numeric resul ts) [facility] Sulfasalazine and sulfapyridine have the potential to falsely depressAlanine Aminotransferase results. Baseline values before medication administration are recommended. Alkaline Phosphatase 110 mIU/ml 50-136 Normal (applies to n on-numeric results) [facility] Total Bilirubin 1.40 mg/dl 0.20-1.00 Above high normal [facility] Blood Urea Nitrogen 12 mg/dl 7-18 Normal (applies to non-nume ny results) [facility] Creatinine 0.79 mg/dl 0.51-0.95 Normal (applies to non-numeric resul ts) [facility] N-Acetylcysteine (NAC) and Metamizole em ve the potential to falselydepress Creatinine results. Baseline values before medication adminstration are recommended. Patients undergoing treatment with phenindione will have falselydepressed results. Patients on phenindione therapy should be tested with an alternativeCREA method.Toxic levels of acetaminophen may lead to falsely depressed results forpatient samples. Glomerular Filtration Rate 81.00 mL/min/1.73m2 [facility] GFR Reference Ranges:Normal Function or Mild Renal Disease,if clinically at risk:>or= 60Moderately decreased:30 - 59Severely decreased:15 - 29Renal Failure:<15 Please note that the MDRD equation requires an additional adjustment forAfrican-Americans (multiply the GFR result by 1.210).Glomarular Filtration Rate (GFR) is estimated based on the MDRDequation, which assumes a steady state for creatinine (Yaneli Int Med 139/2 137-149, 2003), as recommended by the NationalKidney Disease Education Program in conjunction with the National Institutes of Health and the National KidneyFoundation. The Kelley method used in calculating this result is traceable to IDMS standards. Glucose 85 mg/dl 70-110 Normal (applies to non-numeric resul ts) [facility] Sulfasalazine has the potential to false ly depress Glucose results. Sulfapyridine has the potential to falsely elevate Glucose results. Baseline values before medication administration are recommended. Calcium 8.7 mg/dl 8.5-10.1 Normal (applies to non-numeric resul ts) [facility] Total Protein 7.1 g/dl 6.4-8.2 Normal (applies to non-numeric re sults) [facility] Albumin 3.1 g/dl 3.4-5.0 Below low normal [facility] Sodium 139 mEq/L 136-145 Normal (applies to non-numeric resul ts) [facility] Potassium 3.6 mEq/L 3.5-5.1 Normal (applies to non-numeric resul ts) [facility] Chloride 112.0 mEq/L 98.0-107.0 Above high normal [facility] Anion Gap 6.6 [facility] Carbon Dioxide 24.0 mMol/L 21.0-32.0 Normal (applies to non-numeric results) [facility] The above 16 analytes were performed by [facility] [id number], ,[place] [address] ID Date Data Source [id number] 05/02/2021 05:16:00 AM EDT [facility] Name Value Range Interpretation Code Description Data Arabella rce(s) Supporting Document(s) Hemoglobin 9.7 g/dl 12.0-16.0 Below low normal [facility] The above 1 analytes were performed by [facility] [address], ,[place] [address] ID Date Data Source [id number] 05/02/2021 05:16:00 AM EDT [facility] Name Value Range Interpretation Code Description Data Arabella rce(s) Supporting Document(s) Hematocrit 31.7 % 37.0-47.0 Below low normal [facility] The above 1 analytes were performed by [facility] [address], ,[place] [address] ID Date Data Source [id number] 05/01/2021 11:33:00 PM EDT [facility] Name Value Range Interpretation Code Description Data Arabella rce(s) Supporting Document(s) Care Plan [facility] FYADRn1aBfKVZjWy34/VZXcxHTYzh4BkNSzrHJb0TUkmAKXbB9EwHNB2xT0fPRR8BYoFWjKeRtSkIDOs [facility] [file] YNCg== ID Date Data Source [id number] 05/01/2021 06:29:00 PM EDT [facility] Name Value Range Interpretation Code Description Data Arabella rce(s) Supporting Document(s) SARS coronavirus 2 RNA [Presence] in Res piratory specimen by MELINDA with probe detection NEGATIVE [facility] This lab was ordered by [facility] a nd reported by [facility]. ID Date Data Source [id number] 04/28/2021 06:15:43 PM EDT [facility] Name Value Range Interpretation Code Description Data Arabella rce(s) Supporting Document(s) Nursing Note [facility] UKZJIb7fPgTSVuAx36/GQXngSADam9GuEWrzANc4LKhbCJHfM7TsOXA0kG6sXPF4KGcOSgKlPiEwOBXu lbm [file] NbaYdpGRDGQoCzHAl9JFqrPADMIe0N ID Date Data Source [id number] 04/28/2021 04:30:15 PM EDT [facility] Name Value Range Interpretation Code Description Data Arabella rce(s) Supporting Document(s) Discharge Summary [facility] AOUYBk8zYiCRUlWv33/NBOmrGRJzd6UvAIxwUOy3QBwnLFCaT8FnXFC6bE1hRRW3BRyLItReHaGmNBLh lbm [file] ez+XKyna+W/Qvy270+V2+mk/gm/svp global publisher business+pdfxMnrIXbuyUTG [file] AgICAvRjMgMjUgMCBSDQogICAgICAvRjQgMjggMCBS EXifCFDsFCQvZaJaZjMuWYFHKp2BVyVfJGZdGA9zxeMiyZC4NFV+Pz6OOFAaEL7MsDHKZ1InsVTxWIlh T7TCOD4HXFP6MG8VoSLcKK0BrVICN9AgzRJyUt2jOABxg0FcSr4kD4WRRGPZZBKeTCeuGXldRPNtBGp9 K4V3JGVrD3ZTV743mRXigQf9Kj4lC9ANMPsSBgHmYS vnVBwsKFMtIHi4S4X0MMHtO3QUL6QcYtCfzzStY8H+UaMvVPWUUU1MHCSXLAr2R9R1fQAwX4L7bJnEqS C3LH7LZW3MvRIsdPDjr88+QoFHBmBfIDIhQ4NNMZZBNpLfVQdwKIsvFTIgHOe7D6P0HEApL2OXD1qoK1 h0ZW4+RhNNJnNxVVKpNb0GIiAwUk6RPhByWR7ycw2N UrQyMNKyRpdUEgo5C8elsfx9cOExAmM5F2V8BcL2bVIyRA4IM0T8jQLvDSN1EDLbtCB+Yj5Pw5CaQCVn DXh0C9hbAQYcLZNwXwCnaX53Q++6vsfqbIS1Z8f7HAVCmYDfwLgImuTfM8aBEWW1h4Y1GYl/Nf2AYVZ4 sKt0rHZfWDYiIUa6oN6vrTv7UrKgWG28YNXlCMxkcT 8dZos2S4Dhu5CqCr3wGg1vxRFgLv7IFcNhMAY3deEmMqSYXnR8rNbgguclYLX8Q3c6dRC3Jp05b3tube Gwz2YiYqD4NAlpZQPfJfMdzlMtHHO2doIlyB7psdVoPz6JVNSoGJhlbzOhMnRTOv1ZVqBrHB59RfksfE 1ldGE+DQogICAgICAgICAgICAgICAgICAgICAgICAg ICAgICAgICAgICAgICAgICAgICAgICAgICAgICAgICAgICAgICAgICAgICAgICAgICAgICAgICAgICAg ICAgICAgICAgICAgICAgDQogICAgICAgICAgICAgICAgICAgICAgICAgICAgICAgICAgICAgICAgICAg ICAgICAgICAgICAgICAgICAgICAgICAgICAgICAgIC AgICAgICAgICAgICAgICAgICAgICAgICAgDQogICAgICAgICAgICAgICAgICAgICAgICAgICAgICAgIC AgICAgICAgICAgICAgICAgICAgICAgICAgICAgICAgICAgICAgICAgICAgICAgICAgICAgICAgICAgIC AgICAgICAgDQogICAgICAgICAgICAgICAgICAgICAg ICAgICAgICAgICAgICAgICAgICAgICAgICAgICAgICAgICAgICAgICAgICAgICAgICAgICAgICAgICAg ICAgICAgICAgICAgICAgICAgDQogICAgICAgICAgICAgICAgICAgICAgICAgICAgICAgICAgICAgICAg ICAgICAgICAgICAgICAgICAgICAgICAgICAgICAgIC AgICAgICAgICAgICAgICAgICAgICAgICAgICAgDQogICAgICAgICAgICAgICAgICAgICAgICAgICAgIC AgICAgICAgICAgICAgICAgICAgICAgICAgICAgICAgICAgICAgICAgICAgICAgICAgICAgICAgICAgIC AgICAgICAgICAgDQogICAgICAgICAgICAgICAgICAg ICAgICAgICAgICAgICAgICAgICAgICAgICAgICAgICAgICAgICAgICAgICAgICAgICAgICAgICAgICAg ICAgICAgICAgICAgICAgICAgICAgDQogICAgICAgICAgICAgICAgICAgICAgICAgICAgICAgICAgICAg ICAgICAgICAgICAgICAgICAgICAgICAgICAgICAgIC AgICAgICAgICAgICAgICAgICAgICAgICAgICAgICAgDQogICAgICAgICAgICAgICAgICAgICAgICAgIC AgICAgICAgICAgICAgICAgICAgICAgICAgICAgICAgICAgICAgICAgICAgICAgICAgICAgICAgICAgIC AgICAgICAgICAgICAgDQogICAgICAgICAgICAgICAg ICAgICAgICAgICAgICAgICAgICAgICAgICAgICAgICAgICAgICAgICAgICAgICAgICAgICAgICAgICAg EKVzDOKfTBSrABSgCXSpJEIbJYIaRGGrLCw3A5unYTYcCDTbHN1eCCr0Sx4+ILlRLaTfONV6heNmgP8I YD1rg3ZaHEnmPQQlh5AhVBu9RE7CEFYaKDwbPO8VHZ ynze5VJRCvXHPbuAPWx6dlJiFeKUT2DROcWootOO5IWXZjI1lvutEqZGEaUTJHIZjuNPEVAJzsSPPQBX KrISEoTfBrCpLzQSOpKX1NHXHpW005flAvIZ9IHz1HCeIfPS8cbb7XLjIiTREaQmiBRej5BScsTQ5QvA AxbCLkRFGuRDIZIoSfR5svq1YcNjYfYHGFBNfoHR6R c3UebMZcFKh+Ja4TZC0vu7KdQDglTYYsVS8nrd3KFKhNFuEpX7AwxBucLLNkw8DsMYPyZQPBoY7uWHO5 HIJ1PRDirrOiJ1yvjg53NTEWUBOueBN4OwQsJbKrShYcYKH5QqnsFY2zHVynVX4SCPU7HBnnTUQqGXIs E4kKJwOtVXgxMILyvJlaMT1PTnWoG0WrduOeeEEkAW AwIFINCj4+VYcsolSxUzlEIbC7VCJkt4KfYLf7TX5ORZHlZPtdGR2GLCNauX8eYZpdDS7GKvZiMrPnML XSZqVjD34gzCToAKx8Q8KyNrVnUNHvVxgwPXGlLWzvUvVaVAJcVtUhALzcLV9+ID4+ESwdAR3YNWqzww LlPBPrIf6XMYBpJNAeZZ6dWDFwLIFzC0E4gJndBDZR UyDuV5mhbcmuNS6sXTYhF121bHalstCsGGQ8MNSbXq0XGWDdWVR2ONQefHQxMvBlAWUANNitNB3EiGUk ECL5yM4tHFrvTTEvNUZdF0qOXdRkeRsmQZ41vTvhdhFjkFXvKPc+St4UEF3lv5BfIOo7trSxFYxdBIR0 TIsiTESaWRFkRRJnPTR7OJC7ZRNHMlAmDPEjDOFgFI hdXCHqTRTvgf2UBDCiGMWdODJ6JwQkFIFyUUImCOkyMYWiQEOrUVS2KYBzNGEpIF7YLpZeDQEwFBQhVQ zaJVWvBAKnga4LKHReGGXiThJ8DJYdABCrCVAuRTixCXOgOJCiJaxkASRmBCTyEM3VTnHzTUQmCCC4SR FvFEOuKPXggy1IFNZuIZVbLZiuGdEvLCEiYQZlUHyi DERxTNW3HaDmCFRdVCOxQA3ODwGlJFQeDSe9ZpXvVKYkQQQvsb8XCTDePYMiMQd8CXBbVEQoDMGeWGkd YMHpGTVlFIhzNNVsTJNaEJ6ZKyMoMSRfRLPlHmWoFWGxMQHjjz1UIERwACDqQoEeOeGlPJDbOWBlHYwq WXFcLGZ2DCj2JDMyXWTwNR8DLjUtHPGsLPMiZRkhAN VpLYWitj1ZBRKzZFSeMWM0XBJkTZYuIQUaIJarRPFrPPG3CZJ5EFMjACIkNE5SEhJvOKNfPKH5IWCgUU LxNWFfkw5PBPWaRYKkYRqtGKVbCTRhZCRlAOaaLWUpJTS9OEieECQoWOJvRD3NBhKgWTUxDVnpBVLjOC JvNHOzdp4NNKFjMNYtFfX1CHOiJDWvCIViMKcoPPBx OCU6IcI5VTIwZNIqWA3YTwNxOAHuYWc4NkOaSBSmDHAgco7GJGBpQUBkDKOcBEHrNDWfVEGiVIrgTXTw ENO4GPszXPDvRQIpRE0IOnDnTPKbATt1MKKeXPXgEJShnx6GCJNiJKByXYt4RPUhSWNjCXIrCMpfFVMg LZFeMHH5AGVnNSRkCE4WLiKvQTLxVfCdKPGqDWArCD Lqoc5UGUYcLAXdTMViTQMwRHWiUCNzUSdnLEPtWTFfHGD2UXKeMFTgNH6USyBuERRwFcJoBGUkSALxFS Gjgh8HIZUdKJDePtJ1IIGfTRDvLZVzASnwLRWwQMTyEASbMGOtFWHmYX3DOkTfGSyySACEJhy8YTkfN8 g9OXPsYs6US0Jhp7MuIhQpUDWTEZbkCS4zkiRbKJIa Ag6NT8pWBhpiJICuHmjnGfSlHuA8BbTrNCJ4RHupLLswJWD6BETyZp7iYXIcRvOvXRMkGPOpNtNfAxK5 XILtKPAeU5J4PQf5MLBtXpJtEJ7OAg5AAmG8JGK6sACiMs9OBeT0MCKQFsPjGG4SETs= ID Date Data Source [id number] 04/28/2021 03:03:23 PM EDT [facility] Name Value Range Interpretation Code Description Data Arabella rce(s) Supporting Document(s) Care Plan [facility] HPRIJl1lYsTDIlWo21/ADVnrPOAja4TxZXaxMAx4AFhxNWBsK7JwNBG3oP8wXRZ0XOiSEcCjHgXtOCNo lbm [file] DQo= ID Date Data Source [id number] 04/28/2021 12:53:00 PM EDT [facility] Name Value Range Interpretation Code Description Data Arabella rce(s) Supporting Document(s) Glucose, Fingerstick 131 mg/dl 70-110 Above high normal [facility] The above 1 analytes were performed by [facility] [address], ,[place] [address] ID Date Data Source [id number] 04/28/2021 11:25:13 AM EDT [facility] Name Value Range Interpretation Code Description Data Arabella rce(s) Supporting Document(s) Nursing Note [facility] UAKBEv2zHgIQPyHp63/IACsoTKJtr4BiIOveKUw1WQbySWVcN9KwMZC1mE1fDBT2EYoSUeEjZnAtNNAh [facility] UrXauLUyLzCYIfAesLVeCxSFdqOgalmJWxXH1NjTR2NXFdZ24xVRCxVSGaR9UpDBeiQm1+XKeiTMQ5gt KdiO2OCOGUJYtSBhFZsj/U/dEJIlIG8m7pKSHmLZDFTLNUxCb8PMICNwTiLRwbj6972c9qUS0FTZIYvs QdeWY+zzeHvQHwfz+hpSVjDPLP+lFbATdjePsGKrVE [file] DXQHLgWkCBMuQOfdXWLPTw3I ID Date Data Source [id number] 04/28/2021 06:07:30 AM EDT [facility] Name Value Range Interpretation Code Description Data Arabella rce(s) Supporting Document(s) Nursing Note [facility] LGFNNk1vPjJGYvPq89/JLSweMVBzk9JvRVspNSr1VLblYVCgH7DfKJU3oC8lMSM3VZcSBpPbXiIbQDMg lbm [file] UkTUUyFHNnZGy9YGAyJfOzGBO2LwLsOo8qRUXVAs4+XMhhjRCilWhhLUYRKfHmRHV2NUzsVDRNAx0Y ID Date Data Source [id number] 04/28/2021 05:35:00 AM EDT [facility] Name Value Range Interpretation Code Description Data Arabella rce(s) Supporting Document(s) Glucose, Fingerstick 72 mg/dl 70-110 Normal (applies to non-num madiha results) [facility] The above 1 analytes were performed by [facility] [address], ,[place] [address] ID Date Data Source [id number] 04/28/2021 05:43:00 AM EDT [facility] Name Value Range Interpretation Code Description Data Arabella rce(s) Supporting Document(s) AST 126 IU/L 15-37 Above high normal [facility] Sulfasalazine and sulfapyridine have the potential to falsely depressAspartate Aminotransferase results. Baseline values before medication administration are recommended. ALT 193 IU/L 13-56 Above high normal [facility] Sulfasalazine and sulfapyridine have the potential to falsely depressAlanine Aminotransferase results. Baseline values before medication administration are recommended. Alkaline Phosphatase 172 mIU/ml 50-136 Above high normal [facility] Total Bilirubin 1.30 mg/dl 0.20-1.00 Above high normal [facility] Blood Urea Nitrogen 7 mg/dl 7-18 Normal (applies to non-nume ny results) [facility] Creatinine 0.75 mg/dl 0.51-0.95 Normal (applies to non-numeric resul ts) [facility] N-Acetylcysteine (NAC) and Metamizole em ve the potential to falselydepress Creatinine results. Baseline values before medication adminstration are recommended. Patients undergoing treatment with phenindione will have falselydepressed results. Patients on phenindione therapy should be tested with an alternativeCREA method.Toxic levels of acetaminophen may lead to falsely depressed results forpatient samples. Glomerular Filtration Rate 86.00 mL/min/1.73m2 [facility] GFR Reference Ranges:Normal Function or Mild Renal Disease,if clinically at risk:>or= 60Moderately decreased:30 - 59Severely decreased:15 - 29Renal Failure:<15 Please note that the MDRD equation requires an additional adjustment forAfrican-Americans (multiply the GFR result by 1.210).Glomarular Filtration Rate (GFR) is estimated based on the MDRDequation, which assumes a steady state for creatinine (Yaneli Int Med 139/2 137-149, 2003), as recommended by the NationalKidney Disease Education Program in conjunction with the National Institutes of Health and the National KidneyFoundation. The Kelley method used in calculating this result is traceable to IDKY standards. Glucose 77 mg/dl 70-110 Normal (applies to non-numeric resul ts) [facility] Sulfasalazine has the potential to false ly depress Glucose results. Sulfapyridine has the potential to falsely elevate Glucose results. Baseline values before medication administration are recommended. Calcium 8.2 mg/dl 8.5-10.1 Below low normal [facility] Total Protein 6.5 g/dl 6.4-8.2 Normal (applies to non-numeric re sults) [facility] Albumin 2.9 g/dl 3.4-5.0 Below low normal [facility] Sodium 135 mEq/L 136-145 Below low normal [facility] Potassium 3.6 mEq/L 3.5-5.1 Normal (applies to non-numeric resul ts) [facility] Chloride 108.0 mEq/L 98.0-107.0 Above high normal [facility] Anion Gap 8.7 [facility] Carbon Dioxide 21.9 mMol/L 21.0-32.0 Normal (applies to non-numeric results) [facility] The above 16 analytes were performed by [facility] [address], ,[place] [address] ID Date Data Source [id number] 04/28/2021 04:59:00 AM EDT [facility] Name Value Range Interpretation Code Description Data Arabella rce(s) Supporting Document(s) WBC 5.64 x1000/ul 4.80-10.00 Normal (applies to non-numeric re sults) [facility] RBC 3.80 x1Mil/ul 4.20-5.40 Below low normal [facility] Hemoglobin 9.9 g/dl 12.0-16.0 Below low normal [facility] Hematocrit 31.6 % 37.0-47.0 Below low normal [facility] MCV 83.2 fL 81.0-99.0 Normal (applies to non-numeric resul ts) [facility] MCH 26.1 pg 27.0-31.0 Below low normal [facility] MCHC 31.3 g/dl 32.2-37.0 Below low normal [facility] RDW 14.4 % 11.5-14.5 Normal (applies to non-numeric resul ts) [facility] Platelet Count 253 x1000/ul 130-400 Normal (applies to non-numeric results) [facility] MPV 10.5 fL 9.4-12.4 Normal (applies to non-numeric resul ts) [facility] Neutrophils 56.6 % 40.0-74.0 Normal (applies to non-numeric resu lts) [facility] Lymphocytes 32.1 % 19.0-48.0 Normal (applies to non-numeric resu lts) [facility] Monocytes 7.6 % 3.4-9.0 Normal (applies to non-numeric resul ts) [facility] Eosinophils 3.0 % 0.0-7.0 Normal (applies to non-numeric resu lts) [facility] Basophils 0.5 % 0.0-2.0 Normal (applies to non-numeric resul ts) [facility] Immature Granulocytes 0.2 % 0.0-0.5 Normal (applies to non-nu meric results) [facility] Nucleated RBCs 0.00 % 0.00-0.20 Normal (applies to non-numeric r esults) [facility] Abs. Neutrophils 3.19 x1000/ul 1.92-8.31 Normal (applies to non-numeric results) [facility] Abs. Lymphocyte 1.81 x1000/ul 1.20-3.70 Normal (applies to non-n umeric results) [facility] Abs. Monocytes 0.43 x1000/ul 0.14-0.97 Normal (applies to non-nu meric results) [facility] Abs. Eosinophils 0.17 x1000/ul 0.00-0.76 Normal (applie s to non-numeric results) [facility] Abs. Basophils 0.03 x1000/ul 0.00-0.22 Normal (applies to non-n umeric results) [facility] Abs. Immature Gran. 0.01 x1000/ul 0.00-0.02 Normal (appl ies to non-numeric results) [facility] Abs. 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 [file] hJT+zwSvrBDo+dM4RE8tj3mg5seOl3in7MAsB31T/carlos a/9HrHUNjdeQag4vUfcOtMRNyyaaGfO8RbY47R [file] L8JXDDGvUeUD8NIYb= ID Date Data Source [id number] 04/28/2021 12:07:00 AM EDT [facility] Name Value Range Interpretation Code Description Data Arabella rce(s) Supporting Document(s) Glucose, Fingerstick 80 mg/dl 70-110 Normal (applies to non-num madiha results) [facility] The above 1 analytes [facility] [address], ,[place] [address] ID Date Data Source [id number] 04/27/2021 07:16:45 PM EDT [facility] Name Value Range Interpretation Code Description Data Arabella rce(s) Supporting Document(s) Nursing Note [facility] WOCOJz8kUhVCRpCs81/FWNeqUMDtf2DjXYdhZYv7HLsgRLLhY7GoNZZ6lC5wUCN6KWfSOlUuRsHiZZL5 lbm [file] O7aQYdZb2UYzRlUNENEsIkLE6OOOg= ID Date Data Source [id number] 04/27/2021 05:52:00 PM EDT [facility] Name Value Range Interpretation Code Description Data Arabella rce(s) Supporting Document(s) Glucose, Fingerstick 81 mg/dl 70-110 Normal (applies to non-num madiha results) [facility] The above 1 analytes were performed by [facility] [address], ,[place] [address] ID Date Data Source [id number] 04/27/2021 03:06:47 PM EDT [facility] Name Value Range Interpretation Code Description Data Arabella rce(s) Supporting Document(s) Progress Notes [facility] HARZBo3uUrMSGpRu65/ACOsuRQLxv4RwXSdsGWx3KKuhAZXcY5HiPQR7wY7gAMV1FAhIBqYiBtYtPJG8 lbm [file] ebQYUFGl7B ID Date Data Source [id number] 04/27/2021 02:37:54 PM EDT [facility] Name Value Range Interpretation Code Description Data Arabella rce(s) Supporting Document(s) Progress Notes [facility] NYFTIk8hCxZPYvRx42/BRAniWAKgl8DjBXwcIZw0TLlmYZEpY0PiDFR4iB8oRAF7DLyJCdLxMvExENT8 lbm [file] BYnnaAUakGzrAVJSTkTxObj3YWtnQEFRLx4L ID Date Data Source [id number] 04/27/2021 02:46:00 PM EDT [facility] Name Value Range Interpretation Code Description Data Arabella rce(s) Supporting Document(s) Ferritin 17.7 ng/ml 3.0-388.0 Normal (applies to non-numeric resul ts) [facility] The above 1 analytes were performed by [facility] [address], ,[place] [address] ID Date Data Source [id number] 04/27/2021 02:46:00 PM EDT [facility] Name Value Range Interpretation Code Description Data Arabella rce(s) Supporting Document(s) Iron Saturation 42 [facility] Iron 186 ug/dl 50-170 Above high normal [facility] Patients treated with metal-binding drug s (e.g deferoxamine) may havedepressed iron values. Total Iron-Binding Capacity 440 ug/dl 250-450 Norm al (applies to non-numeric results) [facility] The above 3 analytes were performed by [facility] [address], ,[place] [address] ID Date Data Source [id number] 04/27/2021 02:46:00 PM EDT [facility] Name Value Range Interpretation Code Description Data Arabella rce(s) Supporting Document(s) AST 350 IU/L 15-37 Above high normal [facility] Sulfasalazine and sulfapyridine have the potential to falsely depressAspartate Aminotransferase results. Baseline values before medication administration are recommended. ALT 301 IU/L 13-56 Above high normal [facility] Sulfasalazine and sulfapyridine have the potential to falsely depressAlanine Aminotransferase results. Baseline values before medication administration are recommended. Alkaline Phosphatase 227 mIU/ml 50-136 Above high normal [facility] Total Bilirubin 1.50 mg/dl 0.20-1.00 Above high normal [facility] Blood Urea Nitrogen 8 mg/dl 7-18 Normal (applies to non-nume ny results) [facility] Creatinine 0.70 mg/dl 0.51-0.95 Normal (applies to non-numeric resul ts) [facility] N-Acetylcysteine (NAC) and Metamizole em ve the potential to falselydepress Creatinine results. Baseline values before medication adminstration are recommended. Patients undergoing treatment with phenindione will have falselydepressed results. Patients on phenindione therapy should be tested with an alternativeCREA method.Toxic levels of acetaminophen may lead to falsely depressed results forpatient samples. Glomerular Filtration Rate >90.00 mL/min/1.73m2 [facility] GFR Reference Ranges:Normal Function or Mild Renal Disease,if clinically at risk:>or= 60Moderately decreased:30 - 59Severely decreased:15 - 29Renal Failure:<15 Please note that the MDRD equation requires an additional adjustment forAfrican-Americans (multiply the GFR result by 1.210).Glomarular Filtration Rate (GFR) is estimated based on the MDRDequation, which assumes a steady state for creatinine (Yaneli Int Med 139/2 137-149, 2003), as recommended by the NationalKidney Disease Education Program in conjunction with the National Institutes of Health and the National KidneyFoundation. The Kelley method used in calculating this result is traceable to IDMS standards. Glucose 86 mg/dl 70-110 Normal (applies to non-numeric resul ts) [facility] Sulfasalazine has the potential to false ly depress Glucose results. Sulfapyridine has the potential to falsely elevate Glucose results. Baseline values before medication administration are recommended. Calcium 8.6 mg/dl 8.5-10.1 Normal (applies to non-numeric resul ts) [facility] Total Protein 7.3 g/dl 6.4-8.2 Normal (applies to non-numeric re sults) [facility] Albumin 3.5 g/dl 3.4-5.0 Normal (applies to non-numeric resul ts) [facility] Sodium 136 mEq/L 136-145 Normal (applies to non-numeric resul ts) [facility] Potassium 4.5 mEq/L 3.5-5.1 Normal (applies to non-numeric resul ts) [facility] Chloride 108.0 mEq/L 98.0-107.0 Above high normal [facility] Anion Gap 12.0 [facility] Carbon Dioxide 20.5 mMol/L 21.0-32.0 Below low normal [facility] The above 16 analytes were performed by [facility] [address], ,[place] [address] ID Date Data Source [id number] 04/27/2021 12:43:26 PM EDT [facility] Name Value Range Interpretation Code Description Data Arabella rce(s) Supporting Document(s) Consults [facility] CRRTVe4nFrZDXtMs43/LPBorCWSsj6FfKYghXRn6OEulOWAkQ3DgYHL4gC8fACN4KOqRZzIvWeAqVOF8 lbm [file] AgICAgICAgICAgICAgICAgICAgICAgICAgICAgICAg ICAgICAgICAgICAgICAgICAgICAgICANCiAgICAgICAgICAgICAgICAgICAgICAgICAgICAgICAgICAg ICAgICAgICAgICAgICAgICAgICAgICAgICAgICAgICAgICAgICAgICAgICAgICAgICAgICAgICAgICAg ICAgICANCiAgICAgICAgICAgICAgICAgICAgICAgIC AgICAgICAgICAgICAgICAgICAgICAgICAgICAgICAgICAgICAgICAgICAgICAgICAgICAgICAgICAgIC AgICAgICAgICAgICAgICANCiAgICAgICAgICAgICAgICAgICAgICAgICAgICAgICAgICAgICAgICAgIC AgICAgICAgICAgICAgICAgICAgICAgICAgICAgICAg ICAgICAgICAgICAgICAgICAgICAgICAgICANCiAgICAgICAgICAgICAgICAgICAgICAgICAgICAgICAg ICAgICAgICAgICAgICAgICAgICAgICAgICAgICAgICAgICAgICAgICAgICAgICAgICAgICAgICAgICAg ICAgICAgICANCiAgICAgICAgICAgICAgICAgICAgIC AgICAgICAgICAgICAgICAgICAgICAgICAgICAgICAgICAgICAgICAgICAgICAgICAgICAgICAgICAgIC AgICAgICAgICAgICAgICAgICANCiAgICAgICAgICAgICAgICAgICAgICAgICAgICAgICAgICAgICAgIC AgICAgICAgICAgICAgICAgICAgICAgICAgICAgICAg ICAgICAgICAgICAgICAgICAgICAgICAgICAgICANCiAgICAgICAgICAgICAgICAgICAgICAgICAgICAg ICAgICAgICAgICAgICAgICAgICAgICAgICAgICAgICAgICAgICAgICAgICAgICAgICAgICAgICAgICAg ICAgICAgICAgICANCiAgICAgICAgICAgICAgICAgIC AgICAgICAgICAgICAgICAgICAgICAgICAgICAgICAgICAgICAgICAgICAgICAgICAgICAgICAgICAgIC AgICAgICAgICAgICAgICAgICAgICANCiAgICAgICAgICAgICAgICAgICAgICAgICAgICAgICAgICAgIC AgICAgICAgICAgICAgICAgICAgICAgICAgICAgICAg ICAgICAgICAgICAgICAgICAgICAgICAgICAgICAgICANCjw/zIYwW7vrwLGsyrK4T2biZa9WEw2RQU5a n2UgLSKsGYczbzLiRzzJZeMjSQJhOnwYLmz6LSdoNH9TvLZzW0IjR5PrFTpbNF6ADMWmKZZsqAVcAZFm JKYrBkT0LMZmOAokUM6XnFQiFJnpRSIcFJOtYuKoEJ IkNFGiKOUoKDJmJPVCEMHfKVSiJjAaQXJdYUOeLUjyVOUSFP2HHmUwK4FpsN65NGwIFa4+DQplbmRvYm jGKoIeLRHde1FiIDm0UH0VQIKhQchcw2YaNCZtROAQQAygZL8FJLU7FRPxUQJtTp4YWDUbQ666coXuSS 0RJe3FMpHoYZ7aum3RKOMiIARrJeiVOcv1OMmnHX9U uYQgZAzTz01sjRh6bzNsfKJQjIuvqOLgOIEzA9WxGdOzSDPQECFasAL7AsG8MiDnYwNsSOA9DVktDU2j IQkwIG9TQZB6DJfzMIXgTEYqQ2eAJgXlOCssUYWagSrpOJ6KLdWuG3EcteGxgWR6UASgOGBLBt5+DQpl bgGuTtaRUoIkLOYsv5MkILx1KH1ZWYQzOFutOJ9VGB ZkiO2jTNmsBX2GPcYpCYVhHFIFZyYtG45ltWUtOGv5V8IuFjOmPNLmTmvcBWIhZLniNgXvDAJyYcDdQH ogID4+ID4+OGweRB3JTOaoqtRlDQUgNr0WZOHtXAQhWC7qDWZtAEKlC0X6jAueDMICQhCvC6zemlgfOL 6nCNXqE193uAvwkaOyQGOnFIHvWo4EKKOnCFS6HVSm zMIkVqhfXLSQBGpgNO6UnLKuWSR2gO1yGCuxTXHgOYIyO2pLLhHunFipWW00aMvwhcFcdWCsMMh+Pg0K PR4bp8JwDKv1aiJvBYdjBHRrOPnpIQSsIVSsCCMmXBO0XVH7IHWAZpCsGBTrAWTcNEaiMHRmWBTtdo7S NWUrTWIbEfV3QqMrKQGnJOPwEVznNIKdGBP2CEUtXI RhNKRpSR2VEwJdGGLjKXYhEQovEFTuLZOptp5HWPVaHFNvZcTyPRUrEENxEBVbINmcCCGdYKLzGTG5JG PaTWYeBC7DVkKpCGZaAPGeHOnfFHAfDZTmww4RAIJlLAWlTtHyFhNkWGQyPYQyDOumXQTfLLX6FcPeDE VnYQJaAY7TEkIyFUJfAAf3SEAtLJUuBEIcnp1ZWLVq YOHuOAW8VzHaWGOfEQBnWKaqTYVsWMWoHTO9UKDbOJKaPD6EVrDhTXDcWLAzTgKyFGTmDVZndz6WLMKz FNRaZvN3QLNdSSQnGIRsALhdHYYaRVW7FYb9NZQaQJRrVB0WAhVkQMIkSGL6DJZqRIToYZXjys7JOWZa EUMdDVovVJGsIFYeRWVvYSpvOWZrWKL5LMP3HVWjOE XcNL1QRjQrAHMpBVdqIPMhPGYvFBYpqq1ZIQQnBNJlLxL3IxGbSZDzKOIgVGmzOWPuJEV6FHi7WEGwNC JcER4YJkHcMUKmCTm6EnCiNKGrAMCctz4GFKPxNMVeAUZbAHLqHNUmOSZzMFvnDMBoKDG9BLK4ZMDwMI AtAG5YWmAtMGZfPRw2VtLxYBLxUGWuwj0FJLBjOWOp OKr1ZKUlUFHjTLJqCUwxWCJhENQvTIicUFSnRUBcCA0TDhUfCMBySwIfCryqCULcJQIzlf3WORDqIAMl SSHiVFLfANFvEEYsTQrhFTKzATOnRJL2YSOgCJScVL4FRuCmYXZjFeG7CqPlLOWfHZQqgr8RSFHvCQUs FKB7ANFdUEKvINMkIEuwDFUbRIH4JjS7CCSjNMGmCX 2FWePwLNZdMhZ8PVvkHTKnHIPrzh9ICVPbJZRlGXp2AcMlQFKqJAHwKHydZVMbQFT8Xup3RJPyUWZmYM 0JRiIjJCBrBaZ0SFPzLVNlHGXdnu6DFAZdXYPiHuT8MKXgVXTtSMZsBWnsSSNlAHV4QAXbDVJkSIBfKQ 5CTcBsVDElQua8LQpmQCOhJLJruf0NPLTmZVFsQTD0 AAGgTTUkADGpGIdwHPEdDYF2UzH4DGHjPWCrYY7VAdZlNBlqTDHYOjy2PGdqM5a5AJT4Oh0RC1Nmh4Lj VIHqDDRPPZzeAT1njoOsIQPrKd2WP6hRRszqNtF4SKYwLVzyNVK0AFIoTjA9GBLlXCIbEvtwIevuRI4y BFFgFpUmCRMjVPZuTzN8FMHmWAD2YCLlLqTcUOA1Hv CqXgYsKM9KPt2EZyI2TEL7qEXaOo7EYet4XLhDMcChFI3BGNu= ID Date Data Source [id number] 04/27/2021 12:30:00 PM EDT [facility] Name Value Range Interpretation Code Description Data Arabella rce(s) Supporting Document(s) Amphetamines, Urine Negative Negative Normal (applies to non-nume [place] results) [facility] Barbituates, Urine Negative Negative Normal (applies to non-numer ic results) [facility] Benzodiazepines, Urine Negative Negative Normal (a pplies to non-numeric results) [facility] Cannabanoids, Urine Positive Negative Abnormal (applies to non-numeric results) [facility] Cocaine, Urine Negative Negative Normal (applies to non-numeric r esults) [facility] Opiates, Urine Positive Negative Abnormal (applies to non-numeric results) [facility] PCP, Urine Negative Negative Normal (applies to non-numeric resul ts) [facility] Methadone, Urine Negative Negative Normal (applies to non-numeric results) [facility] DrugMinimum Detection Threshold (Conc.)A [id number] ng/mLBarbiturates 200 ng/mLBenzodiazepines 200 ng/mLCannabinoids 50 ng/mLCocaine Metabolites 300 ng/mLOpiates 300 ng/mLPhencyclidine (PCP) 25 ng/mLMethadone 300 ng/mLOxycodone 100 ng/mLNOTE: Phentermine may interfere with the amphetamine analysis.NOTE: This urine drug analysis is a screening procedure. Presumptivepositive results are unconfirmed.[facility] Laboratories recommend submitting positive specimens to areference laboratory for confirmation. Oxycodone, Urine Negative Negative Normal (applies to non-numeric results) [facility] The above 9 analytes were performed by [facility] [address], ,[place] [address] ID Date Data Source [id number] 04/27/2021 11:48:00 AM EDT [facility] Name Value Range Interpretation Code Description Data Arabella rce(s) Supporting Document(s) Glucose, Fingerstick 78 mg/dl 70-110 Normal (applies to non-num madiha results) [facility] The above 1 analytes were performed by [facility] [address], ,[place] [address] ID Date Data Source [id number] 04/27/2021 08:10:31 AM EDT [facility] Name Value Range Interpretation Code Description Data Arabella rce(s) Supporting Document(s) Care Plan [facility] HQRKLe1sInWHKcQt46/MIWmzIFFsi7VsQHajMUg1XPddWDHwY9DmZUS5fN6lMXD7TOfFDlAeHsSzWAM0 lbm FvOkpWTyJnEMWbBovOAjHhMRqlDaawgQKfSX2MvBH3GDWbA64iFPHfWPNgK2LqERc8Ut6+DCgyAMT7iv TmpF5IWRGlJFep1pMKhs/Yf+LoYbDOmaI9sxHHyz4VAto6NOEVu6fmK/TAH9m0DiegJozy19Pz7NSyLb xEr8KNBi2VQlTuF9N+3UFLhoQQyP+Fo5Da2F/g9Suo xOL5QXekLUO8cOEPaF5lAxJ156ZNYwKHnmn7NFld0UHSVKYCLGiMK5EXhvS1FMiXZJxTWMjI9Q4I1AFF Gs6CLQy9HD1Q9lgtBFeAjzwtat2E92RacrOJ9JHjyBokKoNasWOpSKnCUWqlpXzZkNqLtSVpm9HqvY9v x2CIFqY6ysdNra2TzeEChXHor5G9cXfSA59FCaBTJn m4E8nMZRkqm3vloRuI3BI6G/ARs7DNgMmWO7eLSTDpLwQTEp8cq0rNZAwShCtQCUHA07Cl8XhLwHj1Yp 8L6tT5KzlSms5LBSMsaylsqYvWP/jeRS6N4UaWvQbpDERtUnM1l3uI9icnkUJcVbVL/1usj2hx9LsS85 ql+PzWLDcuxisndbOurI/03gn7eRl9iCaYC0/dmlsr XD6SxpuLUXNhn1QaskoX8wzTDozMehiiFRtaIp6Zx6O96JysKC0jU8+PCcY1IDYDr5wHEmX8iGGMOQGI M9jeBRX2tN1qkKpWVA8W3LnuSBzeQFKR7Ybvu3oiJ6VwoRmoGKvCpmOrzf1fY/Madonna/B54g77nQvb8uo6 [file] JNRfUmHsc8AOebFIBCRc2G ID Date Data Source [id number] 04/27/2021 06:03:19 AM EDT [facility] Name Value Range Interpretation Code Description Data Arabella rce(s) Supporting Document(s) Nursing Note [facility] CRIQKg7hTcCCHkFl61/WGGocXCVwn5PtPGvuSYi4LXgxNNQiZ4TuLGQ5wJ2wYXP8VDcNKgNzSzUkGXK7 lbm [file] o1XcMyPK2HQm7HHiO1XHD7jUFdZj0JPySyNQYFBkVnNH8KJDq= ID Date Data Source [id number] 04/27/2021 05:24:00 AM EDT [facility] Name Value Range Interpretation Code Description Data Arabella rce(s) Supporting Document(s) Glucose, Fingerstick 88 mg/dl 70-110 Normal (applies to non-num madiha results) [facility] The above 1 analytes were performed by [facility] [address], ,[place] [address] ID Date Data Source [id number] 04/27/2021 05:58:00 AM EDT [facility] Name Value Range Interpretation Code Description Data Arabella rce(s) Supporting Document(s) Blood Urea Nitrogen 9 mg/dl 7-18 Normal (applies to non-nume ny results) [facility] Creatinine 0.72 mg/dl 0.51-0.95 Normal (applies to non-numeric resul ts) [facility] N-Acetylcysteine (NAC) and Metamizole em ve the potential to falselydepress Creatinine results. Baseline values before medication adminstration are recommended. Patients undergoing treatment with phenindione will have falselydepressed results. Patients on phenindione therapy should be tested with an alternativeCREA method.Toxic levels of acetaminophen may lead to falsely depressed results forpatient samples. Glomerular Filtration Rate >90.00 mL/min/1.73m2 [facility] GFR Reference Ranges:Normal Function or Mild Renal Disease,if clinically at risk:>or= 60Moderately decreased:30 - 59Severely decreased:15 - 29Renal Failure:<15 Please note that the MDRD equation requires an additional adjustment forAfrican-Americans (multiply the GFR result by 1.210).Glomarular Filtration Rate (GFR) is estimated based on the MDRDequation, which assumes a steady state for creatinine (Yaneli Int Med 139/2 137-149, 2003), as recommended by the Nationaldney Disease Education Program in conjunction with the National Institutes of Health and the National KidneyFoundation. The Kelley method used in calculating this result is traceable to IDKY standards. Glucose 80 mg/dl 70-110 Normal (applies to non-numeric resul ts) [facility] Sulfasalazine has the potential to false ly depress Glucose results. Sulfapyridine has the potential to falsely elevate Glucose results. Baseline values before medication administration are recommended. Calcium 8.1 mg/dl 8.5-10.1 Below low normal [facility] Sodium 137 mEq/L 136-145 Normal (applies to non-numeric resul ts) [facility] Potassium 3.8 mEq/L 3.5-5.1 Normal (applies to non-numeric resul ts) [facility] Chloride 109.0 mEq/L 98.0-107.0 Above high normal [facility] Anion Gap 11.1 [facility] Carbon Dioxide 20.7 mMol/L 21.0-32.0 Below low normal [facility] The above 10 analytes were performed by [facility] [address], ,[place] [address] ID Date Data Source [id number] 04/27/2021 05:35:00 AM EDT [facility] Name Value Range Interpretation Code Description Data Arabella rce(s) Supporting Document(s) WBC 8.06 x1000/ul 4.80-10.00 Normal (applies to non-numeric re sults) [facility] RBC 3.77 x1Mil/ul 4.20-5.40 Below low normal [facility] Hemoglobin 9.8 g/dl 12.0-16.0 Below low normal [facility] Hematocrit 31.6 % 37.0-47.0 Below low normal [facility] MCV 83.8 fL 81.0-99.0 Normal (applies to non-numeric resul ts) [facility] MCH 26.0 pg 27.0-31.0 Below low normal [facility] MCHC 31.0 g/dl 32.2-37.0 Below low normal [facility] RDW 14.4 % 11.5-14.5 Normal (applies to non-numeric resul ts) [facility] Platelet Count 233 x1000/ul 130-400 Normal (applies to non-numeric results) [facility] MPV 10.0 fL 9.4-12.4 Normal (applies to non-numeric resul ts) [facility] Neutrophils 68.6 % 40.0-74.0 Normal (applies to non-numeric resu lts) [facility] Lymphocytes 21.7 % 19.0-48.0 Normal (applies to non-numeric resu lts) [facility] Monocytes 6.8 % 3.4-9.0 Normal (applies to non-numeric resul ts) [facility] Eosinophils 1.9 % 0.0-7.0 Normal (applies to non-numeric resu lts) [facility] Basophils 0.6 % 0.0-2.0 Normal (applies to non-numeric resul ts) [facility] Immature Granulocytes 0.4 % 0.0-0.5 Normal (applies to non-nu meric results) [facility] Nucleated RBCs 0.00 % 0.00-0.20 Normal (applies to non-numeric r esults) [facility] Abs. Neutrophils 5.53 x1000/ul 1.92-8.31 Normal (applies to non-numeric results) [facility] Abs. Lymphocyte 1.75 x1000/ul 1.20-3.70 Normal (applies to non-n umeric results) [facility] Abs. Monocytes 0.55 x1000/ul 0.14-0.97 Normal (applies to non-nu meric results) [facility] Abs. Eosinophils 0.15 x1000/ul 0.00-0.76 Normal (applie s to non-numeric results) [facility] Abs. Basophils 0.05 x1000/ul 0.00-0.22 Normal (applies to non-n umeric results) [facility] Abs. Immature Gran. 0.03 x1000/ul 0.00-0.02 Above high normal [facility] Abs. Nucleated RBCs 0.00 x1000/ul 0.00-0.02 Normal (appl ies to non-numeric results) [facility] The above 24 analytes were performed by [facility] [address], ,[place] [address] ID Date Data Source [id number] 04/27/2021 03:19:48 AM EDT [facility] Name Value Range Interpretation Code Description Data Arabella rce(s) Supporting Document(s) Care Plan [facility] IQFJFx2pHjGNByHo85/MFCnpVXUhr4DdXBhsQMz8OUrpDHDmG6NeJRK8uP5bMOU9GDpORkIiSuHqQSE0 lbm [file] ICAgICAgICAgICAgICAgICAgICAgICAgICAgICAgICAgICAgICAgICAgICAgICAgICAgICAgICAgICAg ICAgICAgICAgICAgICAgICAgICAgICAgICANCiAgIC AgICAgICAgICAgICAgICAgICAgICAgICAgICAgICAgICAgICAgICAgICAgICAgICAgICAgICAgICAgIC AgICAgICAgICAgICAgICAgICAgICAgICAgICAgICAgICAgICANCiAgICAgICAgICAgICAgICAgICAgIC AgICAgICAgICAgICAgICAgICAgICAgICAgICAgICAg ICAgICAgICAgICAgICAgICAgICAgICAgICAgICAgICAgICAgICAgICAgICAgICANCiAgICAgICAgICAg ICAgICAgICAgICAgICAgICAgICAgICAgICAgICAgICAgICAgICAgICAgICAgICAgICAgICAgICAgICAg ICAgICAgICAgICAgICAgICAgICAgICAgICAgICANCi AgICAgICAgICAgICAgICAgICAgICAgICAgICAgICAgICAgICAgICAgICAgICAgICAgICAgICAgICAgIC AgICAgICAgICAgICAgICAgICAgICAgICAgICAgICAgICAgICAgICANCiAgICAgICAgICAgICAgICAgIC AgICAgICAgICAgICAgICAgICAgICAgICAgICAgICAg ICAgICAgICAgICAgICAgICAgICAgICAgICAgICAgICAgICAgICAgICAgICAgICAgICANCiAgICAgICAg ICAgICAgICAgICAgICAgICAgICAgICAgICAgICAgICAgICAgICAgICAgICAgICAgICAgICAgICAgICAg ICAgICAgICAgICAgICAgICAgICAgICAgICAgICAgIC ANCiAgICAgICAgICAgICAgICAgICAgICAgICAgICAgICAgICAgICAgICAgICAgICAgICAgICAgICAgIC AgICAgICAgICAgICAgICAgICAgICAgICAgICAgICAgICAgICAgICAgICANCiAgICAgICAgICAgICAgIC AgICAgICAgICAgICAgICAgICAgICAgICAgICAgICAg ICAgICAgICAgICAgICAgICAgICAgICAgICAgICAgICAgICAgICAgICAgICAgICAgICAgICANCiAgICAg ICAgICAgICAgICAgICAgICAgICAgICAgICAgICAgICAgICAgICAgICAgICAgICAgICAgICAgICAgICAg ICAgICAgICAgICAgICAgICAgICAgICAgICAgICAgIC AgICANCjw/yULhS9oftICywfK5P7vdPa4GMr7IWZ0lk2CtEJRrRXwrohLwTjkPXzRbUGMzPvzHXxe3IE ayJY8GiRDcL3ErE7NyJQqyUB3WLVKxLWJtwIRiDEEhHNHzOnM8ZNMtEDgkMX8TfZEwYDexPJDxWCSrBa IaMCLzBW0QMMNmB380qzScLa2EKu0VNdWdJM9xpz8K TsSoXWJxSupPIje3VPwnST1LlOXfhLGsKuTpNBZRUaGhE3ijo4HvOyMcYCOIVFyvWA7Aj4IzzRPjSDx+ Ts6BWP7oq6XpJRzqKhHcHQ5zav4MCRbCSyBaB6UleKsiYGRrhwVnXJufblPqlYMPbYvmiFHlR9JscM82 qGIsXIHUSfFqsQH9FaV8CmEbUwKaUXV4UMipNW0zPG mxEC0FPIC1KFxpGXVdIKErQ7kLMgKuSQlaNFUpvTfaDR1SAbUeJ2NwcnNjbDWuFDMwEAUIOd9+DQplbm SaRktLWwS8LPOfa0RgEQk9NZ5GLLDnVOdpVV5LGVFfxD7nCMbdTK7JLoAyPcRzASTJUlVkQ76qlGWrCD e5E2AdAsHqFBIxSxcjMWWuBLuhNbIzOOHoDyIsGXth ID4+ID4+DEpjRW4RIWahbsVyRRQoQh3WBHCeWIPbGR3fZDAiCPBxE8N0zZhfJBUAGsAhC9lspunhNG8u YNJyL660dLlxrbBjXXV3IPFuGe5OEBJwYZF2PLFlpDCbKrRdBTBQQNvuAZ8UiUVcURM1dB7eOXrvOUIi GJJzE1xEMoLqzXyuMH19nOymfcKazJXdBRw+Pg0KZW 9bz8FxUDx2sjApWRpxMKY0AHqbOOYpCYMwRUAfIAK8TQH1HNQWBnQzLJOfTEQlLKzlCQOcIXUvfq6IYZ GkIZX4KZD5LMDxAPAuQCJtAYiuKZQjVIJ1JJHbOGRySEXbHB5MCrNjEEAbDNCwNAbuPHMaNRMjvf4GHV AwMDAwMzMwOSAwMDAwMCBuDQowMDAwMDAzNTEzIDAw FHAwUQ1CIgTtRAGdOHFlQTGcVREsEGVnrh6UMSYmNKZtTBMaLzTtRCHrGNHjDCcuCXNvDHW2VcA3HUWr BCTnQQ3WDbIeCIXaGBW8TrGdAGZsBPUfge9QZPTiXMOcIoU4GNZkCWLpOIMoKMiuEHRsZUT6BbYfUSVx YGPnFM0QVjFeDHYmJBa9AYptSGSrTZCczr5YESMvOO GhMxw9NYBaLDMwPRQuTGycIFJkYZNbBwNoOZLgJKMcRM8IFnZdHGRsCgH0XVNeNILiMMMdwv2YETUiZW RtNMd2FEIsXFTuVUZaKBniBRTpTETwMDZ6VZEdODYcJO6ZArXhCLAjIkOqBJDxHGQwZEPjof5IXEMnQZ TcHdJ0XfJxPVVwAXRdIFgmZCApKQQdRkznIHPbXMPb UV4NEaJbFDElIfV5IeanTMLvYFOofy5LGZBkLAIdQeZgUTAzXYLlDTSsJMzkREJrSYWaCfX9ETTlEUGt LX9CXlLuNPGtUlE7PcnuGWDeYQXepp2DSLPkTDR2QHN0EsKnEXGmONYoHShgXZRdDMWqEKT3DKQzAJEk BB1WIkKvYMDvQISlLtCjEMFnLNPhno3MLOYnZCC2Xd W7OVQxDAJcIUOnFJwlWKGzOKPeEVB4TUUvRXCaLF1KXxSlVJSxVTF4SAqeDCReEODtwk6EWYErYDF5Pr r6AFTsFXRbBEMaUVolMHHxHHL8YQN6MJBkVBHhAV0WVuFfQFHhIGM4NWOfOIEpVUKyac4IXWErRWU6Yr O6QzBuXMOqUCVgTIwkMBLxJID4KNC3BNBeCLKvJH3K HsLxNTYgVEPzHdMqSQSjSVGnbi0DiWZwiEjlfw1WJDbGQf5BeMcuPXS7YHzyLq2tdSJoYhJtBDWWLf5J voXkSXIcLKUJSDhnMVOgJYOcLJAcXlvhNGH5GacgZDY9TWDbGLQ5LwLxUEjkQcQgYkB8XCXmRmAsEWR6 JSBeRDA9IeiwWQH7UiikVrAsF7ChV7L+IB9hBMo+Yx6Ob6BqwrO4doVrQCq5ThOeBd2LNIYFY4MGMm== ID Date Data Source [id number] 04/26/2021 11:50:00 PM EDT [facility] Name Value Range Interpretation Code Description Data Arabella rce(s) Supporting Document(s) Glucose, Fingerstick 99 mg/dl 70-110 Normal (applies to non-num madiha results) [facility] The above 1 analytes [facility] [address], ,[place] [address] ID Date Data Source [id number] 04/26/2021 06:50:00 PM EDT [facility] Name Value Range Interpretation Code Description Data Arabella rce(s) Supporting Document(s) Glucose, Fingerstick 114 mg/dl 70-110 Above high normal [facility] The above 1 analytes were performed by [facility] [address], ,[place] [address] ID Date Data Source [id number] 04/26/2021 06:45:07 PM EDT [facility] Name Value Range Interpretation Code Description Data Arabella rce(s) Supporting Document(s) Progress Notes [facility] KMZUJz9jAiWSEqIu37/TOUjvFTEfo5OvLSmeJKo4JIevIDUuL0MuLJU5lQ1qDTJ5AFpIUwApAjBePVL7 lbm [file] 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 [employer]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/aISMSd2LUim3yK2Om7251Z8wl8sDN//xhfTwhw8U05GA38+vP7/3b6j/ywunM5cvccLwkTXj7G9+ [file] JQ0aEYw+Zv4Pi1OibiB6ctEvLOxiEHA6Oa5RZWFJX0FRVm== ID Date Data Source [id number] 04/26/2021 01:21:29 PM EDT [facility] Name Value Range Interpretation Code Description Data Arabella rce(s) Supporting Document(s) Care Plan [facility] SYYUHu8uShWUKvJo00/XQVlrOLObh3VeVAseYTg1VLseZWYoN2OoIQM4nI4gITO8LSoGEiGpVpXtKRB4 lbm [file] AgICAgICAgICAgICAgICAgICAgICAgICAgICAgICAgICAgICAgICAgICAgICAgICANCiAgICAgICAgIC AgICAgICAgICAgICAgICAgICAgICAgICAgICAgICAg ICAgICAgICAgICAgICAgICAgICAgICAgICAgICAgICAgICAgICAgICAgICAgICAgICAgICAgICAgICAN CiAgICAgICAgICAgICAgICAgICAgICAgICAgICAgICAgICAgICAgICAgICAgICAgICAgICAgICAgICAg ICAgICAgICAgICAgICAgICAgICAgICAgICAgICAgIC AgICAgICAgICANCiAgICAgICAgICAgICAgICAgICAgICAgICAgICAgICAgICAgICAgICAgICAgICAgIC AgICAgICAgICAgICAgICAgICAgICAgICAgICAgICAgICAgICAgICAgICAgICAgICAgICANCiAgICAgIC AgICAgICAgICAgICAgICAgICAgICAgICAgICAgICAg ICAgICAgICAgICAgICAgICAgICAgICAgICAgICAgICAgICAgICAgICAgICAgICAgICAgICAgICAgICAg ICANCiAgICAgICAgICAgICAgICAgICAgICAgICAgICAgICAgICAgICAgICAgICAgICAgICAgICAgICAg ICAgICAgICAgICAgICAgICAgICAgICAgICAgICAgIC AgICAgICAgICAgICANCiAgICAgICAgICAgICAgICAgICAgICAgICAgICAgICAgICAgICAgICAgICAgIC AgICAgICAgICAgICAgICAgICAgICAgICAgICAgICAgICAgICAgICAgICAgICAgICAgICAgICANCiAgIC AgICAgICAgICAgICAgICAgICAgICAgICAgICAgICAg ICAgICAgICAgICAgICAgICAgICAgICAgICAgICAgICAgICAgICAgICAgICAgICAgICAgICAgICAgICAg ICAgICANCiAgICAgICAgICAgICAgICAgICAgICAgICAgICAgICAgICAgICAgICAgICAgICAgICAgICAg ICAgICAgICAgICAgICAgICAgICAgICAgICAgICAgIC AgICAgICAgICAgICAgICANCiAgICAgICAgICAgICAgICAgICAgICAgICAgICAgICAgICAgICAgICAgIC AgICAgICAgICAgICAgICAgICAgICAgICAgICAgICAgICAgICAgICAgICAgICAgICAgICAgICAgICANCj w/tJYcD0udtNNundJ1S4laAk4IUo7JTV3te8CjNLPa YPvpczQoNurCBiDrPXFgQehNAue0POggMN5ZzFZqF0UvE4NvOVqbHS7MVESzRSMgoTOjEPQlVTTmZnQ4 SGEjJIpwKW6IyFKfQLicRPSeQHMsUqPzEVJkFJTlGYOtAHAdBNIVHCMsXXXkWdSoOQGhREPyRXodFDDM HMD7GFChNmIwKPZuMMLvLyVuBWPSVQF0ZMZfAgLpWp OiSLWcXaljMQYLTAOgSPAwXtYjFjUeAYBlLW0SABCtP346hzKgGFYHKw5+DQplbmRvYmoNCjUzIDAgb2 KsTCy5MI9HUEIdIrfdh5TfKDVsTZIFSPhnJX3LTRW2RDO3EHBiSc5QZKZoK172enTjZH3GEf9NJiZpVE 7ykm9JCMWdYBEzTwxFIek8QAepJF7HaGLqUNtZCLAy NHYhUP0yBumyWK1wYPufBX1dW12nWXcxPb0CVMU9GMdyJXucMdNrGTUzFUrmVDHJRMxTOlDmB4Oja3Bm SqG5GYLmDnNlYIrvYRWgCkZ7JK40nHcqJB3ZKLWnHVZmSV68XLYqYLXyZb7CLw1ZUfWkSP1zpc8GEJWf XLOhIaxFFny2ABrnSM4RyYQzE5KjoSIjf4wQQrTgF6 MZKOSuVIYoSj1YVHWsPpOoQWMgFDvyFJ1rPKTmLBZLoXgbysJ1ZB8QAP1rtfDsUP1DEiYuVq5vBm6LMh DxN6PfB4LcIIUgGOOLXKqvJI1TZDzuKJ6zOB8Hx3BJyRZwlU0sqi6CQLXrJNQwVpfmbl3DClviQ2Y9zB uhYPVkYRMwFUHINHlvQO5TJCNnESG3IZI2EuRwMBTP OhBfY60cDP2HY9Cvc37hUnX8SQJcCxGrMGhuCS65iOcpesSmkNPqoSnxPZ4DEj6+DQplbmRvYmoNCnhy GHJBCjQzMCVMMgSgHTEuOWCeUXLbAbH7HcPvGy0VBPQgPKCxBSLqZpVjNHHiMGYuSMymNHMiZOK4DbC5 ALXhEQGaAX6RDhCxSRRhVZV4NpIaOIFpUEDzsp3XBQ WyHDUtPRT7VdBgRQHuNYDnWCfsLUIbNKGyXxwkWAOhONIwZR5KFwSuRIIoYGD6HBSyYAYmYTNvct8NHN VnBWEdLfUmWxJtQWDyBFAzMAvwUFRhUCNaWFOdIYWhPJBhAV4ZZkDoYBNfDED5RKJqTVVeZBSacc1GZS IlYJMcNVa8NoWtIZKoGBUkIDxlEGVxMSM9Gix2VGEo DLIdKT2MHpBsIEKhKJelXTUfYLVjFIEyji7OLIMpNVGgOBVqZaTbCUTeRGXfBNsxHXUtULN2UNQ9OAFc WSXvDF9ERvHcDLOfAAG0HTMiSQOfDDRasy9XYVQaYRFiDTS9CwEnCKBoXDJpTHilHWPzVPLgNWB7AKPe EXFdUY7IJgTdXOTuFZR9TQXjAWToTOIrdh4QVZZrWC DcKFDyXLVaUTBbYLMaTIakALUwVZH9CqNvQKUtMQAmOA4QVrCeJGOqFPT1MRSvGTGcWASxux6JRBJdUZ VhLEk1KvAhVSJuNIOzOFesUDSaCMI2SiCvTJJuMRPiOJ2KTlKqNFUfDWp5SHgxHRHzNSBbvw5SGBIgDL RsIULeEOHtTUObSACcTSefEXOnYCY9VFNlJXWxGPHq LL6BFwJmRYZaWnSmEBinFWWxIEWzsk4PUWKnXUAzSPV8WhLyBIOwYRAwLYvsHWHmLQOtKMZ3IEEqGJBo ZR9DJcQbVTYuOyLlFvMqRQSqRRLirc6XXQDaEGOiUYJiYQUzFSJoRTUxGNmpCXNmYNZ8OwW0WGRuZGSe ZT9SJxPgXWYwBbR6WhUsJCDhWKHnxn1VRTMhXKLyXb EsOgAqHXJrQCXlDRaqLOHzDUV7ANd8HTIaHXGmJF7BLlJpOQUtHme0JBpgBMQgFMQsht5LRRPkVPHcFq u5AgGwYWYvPLXjASlsBIAmBLM2LZP5FOEyBAChFV1GJcCgVHFiSnplJjUqDOOdPXNihy3DOVOpIVNtWT UnFwBmSZRhODNgIFnaKNHbPWCuRuT7ASXcJKNlBO2O KcZyDRDmTGI5BPXkOBWhHVJebh1PNZEgMZC7MoQ8QIXjNHAmDFPwWWtoYOCiWITgGGKtCYJoGYJkAE7P IjGfVVUfUVJ4VdTpALPgXILbxd6VACToFVK0OfQuQXRwZMOdIZZtMPvvSMJsKHWbXqP5ZGNmWXRnYF9Q QnStPFLoRMK7EPQwJHTuOZRplu2PDHOjVEW8ZEj2BN IlEFWlIGYyZHmlQYTkVXN1NUY9AOXaEGJaRQ4ANzPnIVGyNFDhMGQjCHZrQPTbuy6DPKYwPNZ2NGRaVJ DlQBLxDZAkBAjjEGOhMMY4URutACElRYXdVT7UJsCeDNEjVUlgOZPjOWOzVIYzmy6BVTMaRIB0XmU7CH HoKKUvXKSaQXt8xwKgqMDhNKw4FD2ID7OjyjKrWZIU Dt7Ol064WBT1HJZjOx6WX4lzHk2uMMBvQIHIWn9PTJk0RUE8VoIlBYP6JSLtGMJwTYc0CDMaSohtTwCr NTkyZjg+DEoxLDW0MgVwTSJ4ZQX5PHC0FKRxWpW8M7PmJmG1NEDwEN4aTYMPMf3+DQpzdGFydHhyZWYN WaO9AlP8MUpvMVVCCp1X ID Date Data Source [id number] 04/26/2021 01:20:39 PM EDT [facility] Name Value Range Interpretation Code Description Data Arabella rce(s) Supporting Document(s) Care Plan [facility] RPGRMd3yLgXHHxEi76/CNKyqTKTsf8UuJSeaGXb9WUxgEHFpA1VwYMW0aZ5dQLA5KHdFJwOkRdZpFIV7 lbm [file] CFP6DNuzGCZBUc8M ID Date Data Source [id number] 04/26/2021 12:43:10 PM EDT [facility] Name Value Range Interpretation Code Description Data Arabella rce(s) Supporting Document(s) Nursing Note [facility] GPAIBw1lIxLVXoEk85/XAGhnCTTbo8HvCYsuAUr4KMynXKPkL9CvCYP2sX1sCUU6PSpBMoTkNpZoIIL4 lbm [file] B1IZElDSL+AX4bDDt+Ck6Xa6IxalE4ocRmKEqrKULxGY4LRCGOM0ISVz== ID Date Data Source [id number] 04/26/2021 12:06:00 PM EDT [facility] Name Value Range Interpretation Code Description Data Arabella rce(s) Supporting Document(s) Glucose, Fingerstick 107 mg/dl 70-110 Normal (applies to non-num madiha results) [facility] The above 1 analytes were performed by [facility] [id number] [facility], ,[place] [address] ID Date Data Source [id number] 04/26/2021 04:59:00 AM EDT [facility] Name Value Range Interpretation Code Description Data Arabella rce(s) Supporting Document(s) Glucose, Fingerstick 84 mg/dl 70-110 Normal (applies to non-num madiha results) [facility] The above 1 analytes were performed by [facility] [id number] [employer], ,[place] [address] ID Date Data Source [id number] 04/26/2021 05:20:00 AM EDT [facility] Name Value Range Interpretation Code Description Data Araeblla rce(s) Supporting Document(s) AST 15 IU/L 15-37 Normal (applies to non-numeric resul ts) [facility] Sulfasalazine and sulfapyridine have the potential to falsely depressAspartate Aminotransferase results. Baseline values before medication administration are recommended. ALT 19 IU/L 13-56 Normal (applies to non-numeric resul ts) [facility] Sulfasalazine and sulfapyridine have the potential to falsely depressAlanine Aminotransferase results. Baseline values before medication administration are recommended. Alkaline Phosphatase 53 mIU/ml 50-136 Normal (applies to non-num madiha results) [facility] Total Bilirubin 0.70 mg/dl 0.20-1.00 Normal (applies to non-numeric results) [facility] Blood Urea Nitrogen 11 mg/dl 7-18 Normal (applies to non-nume ny results) [facility] Creatinine 0.76 mg/dl 0.51-0.95 Normal (applies to non-numeric resul ts) [facility] N-Acetylcysteine (NAC) and Metamizole em ve the potential to falselydepress Creatinine results. Baseline values before medication adminstration are recommended. Patients undergoing treatment with phenindione will have falselydepressed results. Patients on phenindione therapy should be tested with an alternativeCREA method.Toxic levels of acetaminophen may lead to falsely depressed results forpatient samples. Glomerular Filtration Rate 85.00 mL/min/1.73m2 [facility] GFR Reference Ranges:Normal Function or Mild Renal Disease,if clinically at risk:>or= 60Moderately decreased:30 - 59Severely decreased:15 - 29Renal Failure:<15 Please note that the MDRD equation requires an additional adjustment forAfrican-Americans (multiply the GFR result by 1.210).Glomarular Filtration Rate (GFR) is estimated based on the MDRDequation, which assumes a steady state for creatinine (Yaneli Int Med 139/2 137-149, 2003), as recommended by the NationalKidney Disease Education Program in conjunction with the National Institutes of Health and the National KidneyFoundation. The Kelley method used in calculating this result is traceable to IDMS standards. Glucose 81 mg/dl 70-110 Normal (applies to non-numeric resul ts) [facility] Sulfasalazine has the potential to false ly depress Glucose results. Sulfapyridine has the potential to falsely elevate Glucose results. Baseline values before medication administration are recommended. Calcium 7.8 mg/dl 8.5-10.1 Below low normal [facility] Total Protein 6.4 g/dl 6.4-8.2 Normal (applies to non-numeric re sults) [facility] Albumin 2.9 g/dl 3.4-5.0 Below low normal [facility] Sodium 139 mEq/L 136-145 Normal (applies to non-numeric resul ts) [facility] Potassium 4.0 mEq/L 3.5-5.1 Normal (applies to non-numeric resul ts) [facility] Chloride 113.0 mEq/L 98.0-107.0 Above high normal [facility] Anion Gap 9.3 [facility] Carbon Dioxide 20.7 mMol/L 21.0-32.0 Below low normal [facility] The above 16 analytes were performed by [facility] [id number] [facility], ,[place] [id number] ID Date Data Source [id number] 04/26/2021 05:20:00 AM EDT [facility] Name Value Range Interpretation Code Description Data Arabella rce(s) Supporting Document(s) Magnesium 2.1 mg/dl 1.6-2.6 Normal (applies to non-numeric resul ts) [facility] The above 1 analytes were performed by [facility] [id number] [facility], ,[place] [address] ID Date Data Source [id number] 04/26/2021 04:54:00 AM EDT [facility] Name Value Range Interpretation Code Description Data Arabella rce(s) Supporting Document(s) WBC 7.39 x1000/ul 4.80-10.00 Normal (applies to non-numeric re sults) [facility] RBC 3.51 x1Mil/ul 4.20-5.40 Below low normal [facility] Hemoglobin 9.3 g/dl 12.0-16.0 Below low normal [facility] Hematocrit 30.1 % 37.0-47.0 Below low normal [facility] MCV 85.8 fL 81.0-99.0 Normal (applies to non-numeric resul ts) [facility] MCH 26.5 pg 27.0-31.0 Below low normal [facility] MCHC 30.9 g/dl 32.2-37.0 Below low normal [facility] RDW 15.4 % 11.5-14.5 Above high normal [facility] Platelet Count 256 x1000/ul 130-400 Normal (applies to non-numeric results) [facility] MPV 10.5 fL 9.4-12.4 Normal (applies to non-numeric resul ts) [facility] Neutrophils 48.7 % 40.0-74.0 Normal (applies to non-numeric resu lts) [facility] Lymphocytes 41.1 % 19.0-48.0 Normal (applies to non-numeric resu lts) [facility] Monocytes 7.3 % 3.4-9.0 Normal (applies to non-numeric resul ts) [facility] Eosinophils 1.6 % 0.0-7.0 Normal (applies to non-numeric resu lts) [facility] Basophils 0.9 % 0.0-2.0 Normal (applies to non-numeric resul ts) [facility] Immature Granulocytes 0.4 % 0.0-0.5 Normal (applies to non-nu meric results) [facility] Nucleated RBCs 0.00 % 0.00-0.20 Normal (applies to non-numeric r esults) [facility] Abs. Neutrophils 3.59 x1000/ul 1.92-8.31 Normal (applies to non-numeric results) [facility] Abs. Lymphocyte 3.04 x1000/ul 1.20-3.70 Normal (applies to non-n umeric results) [facility] Abs. Monocytes 0.54 x1000/ul 0.14-0.97 Normal (applies to non-nu meric results) [facility] Abs. Eosinophils 0.12 x1000/ul 0.00-0.76 Normal (applie s to non-numeric results) [facility] Abs. Basophils 0.07 x1000/ul 0.00-0.22 Normal (applies to non-n umeric results) [facility] Abs. Immature Gran. 0.03 x1000/ul 0.00-0.02 Above high normal [facility] Abs. Nucleated RBCs 0.00 x1000/ul 0.00-0.02 Normal (appl ies to non-numeric results) [facility] The above 24 analytes were performed by [facility] [address],[facility] [id number],[place] [address] ID Date Data Source [id number] 04/26/2021 02:31:41 AM EDT [facility] Name Value Range Interpretation Code Description Data Arabella rce(s) Supporting Document(s) Care Plan [facility] BUTCHb8aAeJNQzLt51/ZEZbsMTIeo4WpUMhjAVf3AHvbVLLkC2IjVWX5yV5wUGL9IVgBYlCkFqIaQJD9 lbm [file] [id number]== ID Date Data Source [id number] 04/25/2021 11:21:00 PM EDT [facility] Name Value Range Interpretation Code Description Data Arabella rce(s) Supporting Document(s) Glucose, Fingerstick 84 mg/dl 70-110 Normal (applies to non-num madiha results) [facility] The above 1 analytes were performed by [facility] [address], ,[place] [address] ID Date Data Source [id number] 04/25/2021 11:09:15 PM EDT [facility] Name Value Range Interpretation Code Description Data Arabella rce(s) Supporting Document(s) Nursing Note [facility] GCTXXc0bGdBCFzCe45/AQKxvITCca6LwDMvlHMu3XTtgQDGqL7IwYSP5cR8hOTZ7TYyCEiYyEdIbVSS4 lbm DrBeeAVxZmVIBrMxwPSvUlZSycVslyjKSpUG3ZpGV9HXKrZ80vZCYgLJUcV2SuSUUgQpq+Ct0HULGxnZ RlDM6XWqmF4RcbvulBCA9a0T+LveZe9Y6jnSjfSONtGFUKEFBpr22vaLMZ6Iu5Y1AxtR5kaQQWhJivYG 0qAQWaTNZAPT5czvVHHtL/+7mkTlCMZS8sQrmn1FNN 756BfIewnqBwFuCLUUFbEF2tythfqpFfZrSyJN/OYWra3gPnZKdVtNWzlVaGeP5gKWt2QwhApaXgDIYB w3S7HfWKSbquMmiSopb66wWSJKjjKn/mETHktaPvzJTYrWxZRbGV8BC96aWlj5LHm6WQMMGckwUdfyMC TOW6IjhtH7thvImC6hW0ty54Hki9IQJ2a4CCSNcGAT IY0qF6l7SS2r6bzFaM2pRC+xrtOvOxcvQKHy6hLswDYEpIC0qzSpBOwOeMzSSsNwuQNvpIjiPShAayJG NgdMjuO8+Maddy/+tiFfTh/Yf3WcADZi1rkepbWrEEJHgeys3R4cMdLkvnFNC+bw0Mi3cNZbTN2Xiz9VKt [file] Y3FCX5cWCiBr4LQfAbNBXCBnOoSM8EVTu= ID Date Data Source [id number] 04/25/2021 07:08:57 PM EDT [facility] Name Value Range Interpretation Code Description Data Arabella rce(s) Supporting Document(s) H&P [facility] LTXQYq5jZgAKSzOf57/FQKqhVMQvr1LrRSqmQRj4GDvlBRPsZ7SmKOB7tL5tPCV6TBhXHdRyVoAvHOO1 lbm [file] MjEgMCBSDQogICAgICAvRjIgMjQgMCBSDQogICAgIC HfMyRrIxcoHRDHYAoaZPTxXSMpHyAiMeNfBKHBWBvjKHTkZQIzRtLfMhEpPUPLXp3OArGqAHLfBM7zyz CeyEA1ZQH+Ym6RDZIvJG2KfACYM0HrhGJnSWvoM4ZBKY1UNTA5IQ0GdNTqJP0ZyEQFJ9QduKPpVy4jMO Ccp4IuKk6sG7RXJGIEXCTvXPxtOAmzHHGaGAx8I3A8 NTXqQ9FSH855eTGrzPh9By3kW1OZKJoNLoEbJCryEDjrHTRjFPr2E1X4BBQdE2WRB9McImQlagXhZ0S+ RxDdVKBALO0IGUMXCKp4I3W1xWPqA1M2hBhGpIL9XU2MFS9HtVZtzXTxy42+UnUKUxHpLFLtN8IQITGG VpWsOVjtFNhlXLBrTTi7V0Y0SVCnX8WGG3aaY3e4DZ 4+OmKCPsMiSLLuRx5WQkCxTi8BDfQaJT5ian1MFzTdXOTaKbmIVyr3O6kpblt0bQApVmX4I7Q8ZgM3lV WkVT1SB7H5oXIsSGB7QOFzgQN+Zf9Lb4HkXMBiIBw8I3ovESGfOKQpHfNnzI66D++5vmpslBN0H8h1QA YHnLAmtDqZphYgU6uVIWL5w9D8TLs/Ay9CVIH8eCa4 aFKqWTEcAKt6kO5ukJj4MyWiEZ22BRJvGMzccD0sXgq6C0Pms2YgZy8tQg1bsFXjQb9UDpSbNHM3oxGi BdRNShD7lPwwtavjTRG1N3g9oJO3Yj74b9gawjQkf9LcThE2DQeiYZHuCqDdvlNaJFJ5jzMhdM2titDp Dc2NZQChHCgavsKvTqTJMp1XGzUxYG30WrnzdA0stU E+DQogICAgICAgICAgICAgICAgICAgICAgICAgICAgICAgICAgICAgICAgICAgICAgICAgICAgICAgIC AgICAgICAgICAgICAgICAgICAgICAgICAgICAgICAgICAgICAgICAgICAgDQogICAgICAgICAgICAgIC AgICAgICAgICAgICAgICAgICAgICAgICAgICAgICAg ICAgICAgICAgICAgICAgICAgICAgICAgICAgICAgICAgICAgICAgICAgICAgICAgICAgICAgDQogICAg ICAgICAgICAgICAgICAgICAgICAgICAgICAgICAgICAgICAgICAgICAgICAgICAgICAgICAgICAgICAg ICAgICAgICAgICAgICAgICAgICAgICAgICAgICAgIC AgICAgDQogICAgICAgICAgICAgICAgICAgICAgICAgICAgICAgICAgICAgICAgICAgICAgICAgICAgIC AgICAgICAgICAgICAgICAgICAgICAgICAgICAgICAgICAgICAgICAgICAgICAgDQogICAgICAgICAgIC AgICAgICAgICAgICAgICAgICAgICAgICAgICAgICAg ICAgICAgICAgICAgICAgICAgICAgICAgICAgICAgICAgICAgICAgICAgICAgICAgICAgICAgICAgDQog ICAgICAgICAgICAgICAgICAgICAgICAgICAgICAgICAgICAgICAgICAgICAgICAgICAgICAgICAgICAg ICAgICAgICAgICAgICAgICAgICAgICAgICAgICAgIC AgICAgICAgDQogICAgICAgICAgICAgICAgICAgICAgICAgICAgICAgICAgICAgICAgICAgICAgICAgIC AgICAgICAgICAgICAgICAgICAgICAgICAgICAgICAgICAgICAgICAgICAgICAgICAgDQogICAgICAgIC AgICAgICAgICAgICAgICAgICAgICAgICAgICAgICAg ICAgICAgICAgICAgICAgICAgICAgICAgICAgICAgICAgICAgICAgICAgICAgICAgICAgICAgICAgICAg DQogICAgICAgICAgICAgICAgICAgICAgICAgICAgICAgICAgICAgICAgICAgICAgICAgICAgICAgICAg ICAgICAgICAgICAgICAgICAgICAgICAgICAgICAgIC AgICAgICAgICAgDQogICAgICAgICAgICAgICAgICAgICAgICAgICAgICAgICAgICAgICAgICAgICAgIC VgFAXuAQAfTFZdLDNqURUbIVQbWFCjTJMrPURfSBLnHLCrVTZaLWRpNDHgOFShJCSxOFDlKSg0S0fdSG OgUQNuPN9lEFf8Ev9+AOzCJlVrVHL6iaDwvI8CYN5n e4NvPCeqHEGqd7EbHQg2AH2NHRImMZzvDE3MPVyyll4QSRMoAGJzwEBNc0ucZjKlLKF0UYScQvveLD0D PMXrS9mtesKvJYDtSGEIUYerFNQUBJttTAMQOGKzJNYlBgKzJdPyFHSpFZJvHGZUOQ8TRqEmQ9ClkV41 IDYNCj4+MWqjafZzZvzEYeM6RUDib7OwGYa8CM9NKQ LyDvsam7BjUrhnXZHCQLjkHQ3CECT5OJS7XQAkYi8YLLHzD865nsXhEM0SCg0SPfGxPW1gll2YMqcuRQ CiEwmFTki9PNrkGJ5WzCZhESeAXhMiFbbzYWDbiXQ8VQX2OWC7AGVYKHLivVP9AxN3ReOaMoTyYUV3ND WzHC8qXKzkUD0LJYZ0STpbPQDqPWYqQ4jIYoVzSYlp HAOxaZksFE8YDkBmF5PhiwXcfWEvUuCvSUFOMn5+AQsqleOdAjyPVnJ6ONVqm3LfIBl8HN2KSWErLKmt MM6MFPOhgO2tYNbmXW2JDvMrNYJvATAUDkBaK41npFLqVIe5D6DlMoJiRQBzJwynNLYqGNfaAsNrZESl WyBdDQogID4+ID4+OCvvSU9DUCiubsSuSEEnJq4STQ IfPLTrQO2pIVEtRGJhA9S6iFrhSUHCQkEhF4llfmllEW7uKHFyI978vDmvbwDyOCM4PTYxOr4QLBGvRO Y1YLJkaGSyIhZsZLICFNinGX9QdZCoPVT9pU0qPWbhIIEzGDIwX2pFErWfaClgKA46zMcfpjDuoYAeHZ o+Kz8RLR2rp4EaPNx3aiPuYBvwNRX4HZftWCRdPARw IVXyFXI2ANM0WQSOMwIxJBKvKXUkGSlmATEhSMBktq1RAHQgZXJmIqC4PQKwYSPgJRGcELiaEVGoWTG5 HEEvADAvPIFmZI0XRwIaFFImMRMcVAggGKRxAXFosc1DCYLdVFWbKmD3HbJkGMOpIDQgQCtrORHaXIWo DbMiJPDjEAOwMB9VHsRgFAQsCKLrRSbwNALsSMPxwj 6EBKBsJWWrEiF6WxXhMHIpCSJbWYrmDVMbKAN3PYJ7DVQeIVLmAW5ALlVtRJOoIHmbKrDwODPzRYFkgu 2UMPObETLbCEK6OVSdBAEwTTLdMNfpWEDiQXQeFNA8BSAbVCPeRN9LNhDbDCMeBNSrOoTcQGJhURJaiq 4JNGIiJDIoGHM4XFJsLONjZJIdXPiuHLLuUBN6JiP9 RXLtCRUlTR0KZaEjTLDqBBG7YkEtOPNkBWJhlp8NABYrSLIlCAk5YBOjABAfEHVrNOotHZFbVHG2SVyr YYEcIKBfRT0HHlOeVXQlAHJtJMIrHIBoQAWyjs5LVGPcIRHeFcB4WZFvUGHcAANhOAtlQWLeEAD5UAC9 OYMdNGHzGR7CRnPuECBpQSy3CrTfHPEfRFHunv2ELA NoPGWmFKJ2XNXtEXEgMHDmXJuiOFJbSJL3Nvr0MDHaAAZuHG4OTvMnHAKxFKb6OpCqCLYjSHIczs0KRQ CtWDIrLWyiMuYoCWUjLARmGKnlJUXwIEFkUSStPEUvYSJvGR2JUfErURWmXqXiGdAbHVAcAEGgde2YPS QsZALlIKO6DJYqYWFvUCEtSWpaNETqMLDmNVd2QTNu EIPmFX9FHzSbWWJsBaL0RtSxKVXkOUPhxs1FYNXfVUIrCqAzIlHxPPTsXHMqGUsvDGToHZXuKEE6BCHk GRArAK1NHxIqLHOtFlQxYyQaBTQlQVQipi0NDGKzMGJoGeCvAFSjKDCrJNNiIPjsWUZfOFH7ANaqAQWv ASUaYF8LYaMsVKFwIjLqKGJlCQFsEYBgae7ASJIhVV PfETZ4DSDfKZWgZZJaMXa2gkKfiVCkXLd3UA9IT0YnrgTfZljAUp8Iz232UHG3ABGzKl0UF4awIv1tND ZrUEXWMq4IDDh2CUQnYYVsF5EzOuW6OIwpXBTpYMemYaZiTSNfAQQoEII+XCd5DCNrUWI7YjLoSQfzN3 O5XDSxPPCnOWUvFwCaMKHoXE8wLDAWRu6+EAhoqSGzfLlrMUIRCkR9KGIkFNggFNFBPg0R ID Date Data Source [id number] 04/25/2021 06:53:16 PM EDT [facility] Name Value Range Interpretation Code Description Data Arabella rce(s) Supporting Document(s) Care Plan [facility] KVMPXp3bGtKVYtZx84/SEEqhYNFrc9XuNLgpWNo5JYhwIBGvW7FgPPJ9bB9sQZG8TPxAQbTyJkMhJVN0 lbm [file] xACiwQgySZFXFtW2EHa5ZGgiYNJWYg6E ID Date Data Source [id number] 04/25/2021 05:55:38 PM EDT [facility] Name Value Range Interpretation Code Description Data Arabella rce(s) Supporting Document(s) Consults [facility] OPEVNl7uViJKAwAa03/WHMakWHNjo4MxVZvhULi2BQnhQWPrO5BmJSO1wU2hKAU6PNtNZcJmKlKkELN7 lbm [file] CARLOS A+mGeTuwLiXeD8cPgCFk4UrmEKFv2qbvPwJzq3coI [file] a4Onr6UmSpEiAeOy5mSSYHGr7+HPvlfGYafCvsCGAFOwKfJZVuBVbyFIAKAv3B ID Date Data Source [id number] 04/25/2021 05:13:00 PM EDT [facility] Name Value Range Interpretation Code Description Data Arabella rce(s) Supporting Document(s) Urine Color Yellow Light-Yellow,Yellow Normal (applies to no n-numeric results) [facility] Urine Appearance CLEAR CLEAR Normal (applies to non-numeric results) [facility] Urine Specific Venus 1.034 1.015-1.025 Above high normal [facility] Urine pH 6.5 5.0-7.0 Normal (applies to non-numeric resul ts) [facility] Urine Protein TR NEG Abnormal (applies to non-numeric results) [facility] Urine Glucose NEG NEG Normal (applies to non-numeric re sults) [facility] Urine Ketone NEG NEG Normal (applies to non-numeric res ults) [facility] Urine Bilirubin NEG NEG Normal (applies to non-numeric results) [facility] Urine Blood NEG NEG Normal (applies to non-numeric resu lts) [facility] Urine Urobilinogen NORM <0.2,1.0,<2.0,0.2 Abnormal (a pplies to non-numeric results) [facility] Urine Leukocyte Esterase NEG NEG Normal (applies to non -numeric results) [facility] Urine Nitrite NEG NEG Normal (applies to non-numeric re sults) [facility] The above 12 analytes were performed by [facility] [address], ,[place] [address] ID Date Data Source [id number] 04/25/2021 05:04:00 PM EDT [facility] Name Value Range Interpretation Code Description Data Arabella rce(s) Supporting Document(s) T3 65.42 ng/dl 60.00-181.00 Normal (applies to non-numeric re sults) [facility] The above 1 analytes were performed by [facility] [address], ,[place] [address] ID Date Data Source [id number] 04/25/2021 04:45:00 PM EDT [facility] Name Value Range Interpretation Code Description Data Arabella rce(s) Supporting Document(s) PT, No Coag Tx/Coag Tx Unk 11.7 Seconds 10.2-12.9 Judith l (applies to non-numeric results) [facility] Attention: Effeciive 01/03/2020 The nor mal range for PT (No Coag) has changed:Previous normal range: 10.0-11.4New normal range: 10.2-12.9PT referenence range reflects values for patients not on antic oagulanttherapy.Discrepant results may occur due to anticoagulant effects such ascoumadin, direct thrombin inhibitors; argatroban (Acova), bivalirudin(Angiomax) or dabigatran (Pradaxa) or direct factor Xa inhibitors;rivaroxaban (Xarelto), apixaban (Eliquis) and edoxaban (Savaysa). INR (No Coag Tx/Coag Tx Unk) 1.0 0.9-1.1 Nor mal (applies to non-numeric results) [facility] Suggested therapeutic INR ranges for ora l anticoagulant therapy: Indication:INRPrevention and treatment of DVT and PE2.0 - 3.0Prevention of systemic embolism with atrial fib., acute AR and 2.0 -3.0 tissue prosthetic heart valves.Prevention of systemic embolism in patients with mechanical heart2.5 -3.5 valves.NOTE: The INR is only valid for patients on stable oral anticoagulanttherapy. The above 2 analytes were performed by [facility] [address] [facility], ,[place] [address] ID Date Data Source [id number] 04/25/2021 04:45:00 PM EDT [facility] Name Value Range Interpretation Code Description Data Arabella rce(s) Supporting Document(s) PTT, No Coag Tx/Coag Tx Unk 30.1 Seconds 25.1-36.5 Norm al (applies to non- numeric results) [facility] Attention: Effective 01/03/2020Please no te the change in reference range for PTT (No Coag Tx/Coag TxUnk) ResultsPrevious Reference Range: 24.9-30.6 secondsNew Reference Range: 25.1-36.5 secondsDiscrepant results may occur due to anticoagulant effects such asheparin, direct thrombin inhibitors; argatroban (Acova), bivalirudin(Angiomax) or dabigatran (Pradaxa) or direct factor Xa inhibitors;rivaroxaban (Xarelto), apixaban (Eliquis) and edoxaban (Savaysa).The above 1 analytes were performed by [facility] [address] [facility], ,[place] [address] ID Date Data Source [id number] 04/25/2021 04:33:00 PM EDT [facility] Name Value Range Interpretation Code Description Data Arabella rce(s) Supporting Document(s) WBC 6.78 x1000/ul 4.80-10.00 Normal (applies to non-numeric re sults) [facility] RBC 3.60 x1Mil/ul 4.20-5.40 Below low normal [facility] Hemoglobin 9.3 g/dl 12.0-16.0 Below low normal [facility] Hematocrit 30.3 % 37.0-47.0 Below low normal [facility] MCV 84.2 fL 81.0-99.0 Normal (applies to non-numeric resul ts) [facility] MCH 25.8 pg 27.0-31.0 Below low normal [facility] MCHC 30.7 g/dl 32.2-37.0 Below low normal [facility] RDW 15.3 % 11.5-14.5 Above high normal [facility] Platelet Count 266 x1000/ul 130-400 Normal (applies to non-numeric results) [facility] MPV 10.1 fL 9.4-12.4 Normal (applies to non-numeric resul ts) [facility] Neutrophils 43.7 % 40.0-74.0 Normal (applies to non-numeric resu lts) [facility] Lymphocytes 44.7 % 19.0-48.0 Normal (applies to non-numeric resu lts) [facility] Monocytes 9.1 % 3.4-9.0 Above high normal [facility] Eosinophils 1.3 % 0.0-7.0 Normal (applies to non-numeric resu lts) [facility] Basophils 0.9 % 0.0-2.0 Normal (applies to non-numeric resul ts) [facility] Immature Granulocytes 0.3 % 0.0-0.5 Normal (applies to non-nu meric results) [facility] Nucleated RBCs 0.00 % 0.00-0.20 Normal (applies to non-numeric r esults) [facility] Abs. Neutrophils 2.96 x1000/ul 1.92-8.31 Normal (applies to non-numeric results) [facility] Abs. Lymphocyte 3.03 x1000/ul 1.20-3.70 Normal (applies to non-n umeric results) [facility] Abs. Monocytes 0.62 x1000/ul 0.14-0.97 Normal (applies to non-nu meric results) [facility] Abs. Eosinophils 0.09 x1000/ul 0.00-0.76 Normal (applie s to non-numeric results) [facility] Abs. Basophils 0.06 x1000/ul 0.00-0.22 Normal (applies to non-n umeric results) [facility] Abs. Immature Gran. 0.02 x1000/ul 0.00-0.02 Normal (appl ies to non-numeric results) [facility] Abs. Nucleated RBCs 0.00 x1000/ul 0.00-0.02 Normal (appl ies to non-numeric results) [facility] The above 24 analytes were performed by [facility] [address] [employer], ,[place] [address] ID Date Data Source [id number] 04/25/2021 05:24:00 PM EDT [facility] Name Value Range Interpretation Code Description Data Arabella rce(s) Supporting Document(s) Lipase 162 IU/L 73-393 Normal (applies to non-numeric resul ts) [facility] The above 1 analytes were performed by [facility] [address], ,[place] [address] ID Date Data Source [id number] 04/25/2021 05:24:00 PM EDT [facility] Name Value Range Interpretation Code Description Data Arabella rce(s) Supporting Document(s) Magnesium 2.3 mg/dl 1.6-2.6 Normal (applies to non-numeric resul ts) [facility] The above 1 analytes were performed by [facility] [address], ,[place] [address] ID Date Data Source [id number] 04/25/2021 05:24:00 PM EDT [facility] Name Value Range Interpretation Code Description Data Arabella rce(s) Supporting Document(s) AST 11 IU/L 15-37 Below low normal [facility] Sulfasalazine and sulfapyridine have the potential to falsely depressAspartate Aminotransferase results. Baseline values before medication administration are recommended. ALT 17 IU/L 13-56 Normal (applies to non-numeric resul ts) [facility] Sulfasalazine and sulfapyridine have the potential to falsely depressAlanine Aminotransferase results. Baseline values before medication administration are recommended. Alkaline Phosphatase 56 mIU/ml 50-136 Normal (applies to non-num madiha results) [facility] Total Bilirubin 0.80 mg/dl 0.20-1.00 Normal (applies to non-numeric results) [facility] Blood Urea Nitrogen 12 mg/dl 7-18 Normal (applies to non-nume ny results) [facility] Creatinine 0.69 mg/dl 0.51-0.95 Normal (applies to non-numeric resul ts) [facility] N-Acetylcysteine (NAC) and Metamizole em ve the potential to falselydepress Creatinine results. Baseline values before medication adminstration are recommended. Patients undergoing treatment with phenindione will have falselydepressed results. Patients on phenindione therapy should be tested with an alternativeCREA method.Toxic levels of acetaminophen may lead to falsely depressed results forpatient samples. Glomerular Filtration Rate >90.00 mL/min/1.73m2 [facility] GFR Reference Ranges:Normal Function or Mild Renal Disease,if clinically at risk:>or= 60Moderately decreased:30 - 59Severely decreased:15 - 29Renal Failure:<15 Please note that the MDRD equation requires an additional adjustment forAfrican-Americans (multiply the GFR result by 1.210).Glomarular Filtration Rate (GFR) is estimated based on the MDRDequation, which assumes a steady state for creatinine (Yaneli Int Med 139/2 137-149, 2003), as recommended by the NationalKidney Disease Education Program in conjunction with the National Institutes of Health and the National KidneyFoundation. The Kelley method used in calculating this result is traceable to IDMS standards. Glucose 81 mg/dl 70-110 Normal (applies to non-numeric resul ts) [facility] Sulfasalazine has the potential to false ly depress Glucose results. Sulfapyridine has the potential to falsely elevate Glucose results. Baseline values before medication administration are recommended. Calcium 7.8 mg/dl 8.5-10.1 Below low normal [facility] Total Protein 6.4 g/dl 6.4-8.2 Normal (applies to non-numeric re sults) [facility] Albumin 3.0 g/dl 3.4-5.0 Below low normal [facility] Sodium 140 mEq/L 136-145 Normal (applies to non-numeric resul ts) [facility] Potassium 4.0 mEq/L 3.5-5.1 Normal (applies to non-numeric resul ts) [facility] Chloride 113.0 mEq/L 98.0-107.0 Above high normal [facility] Anion Gap 10.2 [facility] Carbon Dioxide 20.8 mMol/L 21.0-32.0 Below low normal [facility] The above 16 analytes were performed by [facility] [address] [facility], ,[place] [address] ID Date Data Source [id number] 04/25/2021 05:24:00 PM EDT [facility] Name Value Range Interpretation Code Description Data Arabella rce(s) Supporting Document(s) TSH 28.10 uIU/ml 0.36-3.74 Above high normal [facility] Concentrations of Biotin above 100 ng/mL can potentially result ininterference.The above 1 analytes were performed by [facility] [address] [facility], ,[place] [address] ID Date Data Source [id number] 04/25/2021 05:24:00 PM EDT [facility] Name Value Range Interpretation Code Description Data Arabella rce(s) Supporting Document(s) T4, Free 0.63 ng/dl 0.59-1.61 Normal (applies to non-numeric resul ts) [facility] The above 1 analytes [facility] [address], ,[place] [address] ID Date Data Source [id number] 04/25/2021 03:04:52 PM EDT [facility] Name Value Range Interpretation Code Description Data Arabella rce(s) Supporting Document(s) Progress Notes [facility] ZNNGRv1cFfSFEzAs79/BHIwgLKYta6FkUBebDJg3BLccCYSgV5JjLWD9yY6iBHT2OQcSCyAoUbQaSMH0 lbm [file] [id number] ID Date Data Source [id number] 04/25/2021 07:30:00 AM EDT [facility] l CT SCAN OF THE ABDOMEN AND PELVIS WITH C ONTRAST DATE OF EXAMINATION: 04/25/2021 0:17 EDT ABD/PEL WITH IV CONTRAST INDICATION: Epigastric pain COMPARISON: None CONTRAST: 75 cc intravenous contrast TECHNIQUE: Axial images were obtained through the abdomen and pelvis from thelung bases through the rectum following the intravenous injection of contrast. One or more of the following dose reduction techniques were utilized ineffectively lowering the radiation dose for this examination: Automated ExposureControl, Adjustment of the mA and/or kV according to patient size, or Iterativereconstruction. ABDOMEN FINDINGS: Lung bases are clear. No pleural or pericardial effusion. Thepatient is post bariatric surgery. The liver, spleen, pancreas, kidneys, adrenalglands are normal. No dilated bowel or bowel wall thickening. No inflammatorychanges. No evidence of appendicitis. The lung bases appear unremarkable. Liver,spleen, pancreas, adrenal glands, and kidneys appear normal. Abdominal aortais unrema rkable. . PELVIC FINDINGS: There is trace fluid in the pelvis. Bladder is unremarkable.There are postoperative changes in the lumbar spine. Identified. The visualizedbowel and urinary bladder are unremarkable. IMPRESSION: Minimal fluid in the pelvis. No other acute findings. The patient ispost bariatric surgery. No dilated bowel or bowel wall thickening. Noinflammatory changes Electronically signed in [id number] by: Geovanni Simms M.D. 04/25/2021 7:24 EDT Name Value Range Interpretation Code Description Data Arabella rce(s) Supporting Document(s) ID Date Data Source [id number] 04/25/2021 04:43:00 AM EDT [facility] Name Value Range Interpretation Code Description Data Arabella rce(s) Supporting Document(s) COVID-19 NEGATIVE [facility] reported by [facility]. ID Date Data Source [id number] 04/25/2021 05:04:00 AM EDT [facility] T[facility] [id number] Name Value Range Interpretation Code Description Data Arabella rce(s) Supporting Document(s) COVID-19 NEGATIVE NEGATIVE [facility] Negative results should be treated as pr esumptive and, ifinconsistent with clinical signs and symptoms or necessaryfor patient management, should be tested with differentauthorized or cleared molecular tests.Negative results do not preclude SARS-CoV-2 infection andshould not be used as the sole basis for patient managementdecisions.This is a rapid molecular isothermal nucleic acidamplification technology (NAAT) in vitro diagnostic testutilizing a loop mediated isothermal amplification (LAMP)test with nicking endonuclease amplification reaction(NEAR) intended for the qualitative detection of nucleica aracely from the SARS-CoV-2 viral RNA in direct nasal,nasopharyngeal or throat swabs from individuals who aresuspected of COVID-19.Results are for the indentification of SARS-CoV-2 RNA. IgrGRMF-WtI-1 RNA is generally detectable in respiratorysamples during the actue phase of infection. ID Date Data Source [id number] 04/25/2021 01:27:00 AM EDT [facility] l TSYSORDER [id number] Name Value Range Interpretation Code Description Data Arabella rce(s) Supporting Document(s) TSH 44.303 uIU/mL 0.358-3.74 H [facility] ID Date Data Source [id number] 04/25/2021 01:24:00 AM EDT [facility] l TSYSORDER [id number] Name Value Range Interpretation Code Description Data Arabella rce(s) Supporting Document(s) LACTIC ACID 0.8 mmol/L 0.4-2.0 [facility] ID Date Data Source [id number] 04/25/2021 01:24:00 AM EDT [facility] l TSYSORDER [id number] Name Value Range Interpretation Code Description Data Arabella rce(s) Supporting Document(s) C REACTIVE PROTEIN < 0.5 mg/L 0.0-3.0 [facility] ID Date Data Source [id number] 04/25/2021 01:24:00 AM EDT [facility] TSYSORDER [id number] R [id number] Name Value Range Interpretation Code Description Data Arabella rce(s) Supporting Document(s) MAGNESIUM 2.3 mg/dL 1.8-2.4 [facility] ID Date Data Source [id number] 04/25/2021 01:24:00 AM EDT [facility] TSYSORDER [id number] R [id number] Name Value Range Interpretation Code Description Data Arabella rce(s) Supporting Document(s) LIPASE 308 U/L 73-393 [facility] ID Date Data Source [id number] 04/25/2021 01:24:00 AM EDT [facility] TSYSORDER [id number] Name Value Range Interpretation Code Description Data Arabella rce(s) Supporting Document(s) GLUCOSE 93 mg/dL 74-106 [facility] BLOOD UREA NITROGEN 19 mg/dL 7-18 H [facility] ital CREATININE 0.80 mg/dL 0.6-1.0 [facility] SODIUM 137 mmol/L 136-145 [facility] POTASSIUM 5.2 mmol/L 3.5-5.1 [facility] CHLORIDE 103 mmol/L 98-107 [facility] CO2 23 mmol/L 21-32 [facility] CALCIUM 9.2 mg/dL 8.5-10.1 [facility] ANION GAP 11.0 mmol/L 5-12 [facility] GLOMERULAR FILTRATION RATE 80 mL/min [facility] GFR IS CALCULATED IN mL/min/1.73m2 JUDITH L FUNCTION: >90MILDLY DECREASED: 60-89MILDY TO MODERATELY DECREASED: 45-59 MODERATELY TO SEVERELY DECREASED: 30-44SEVERELY DECREASED: 15-29RENAL FAILURE: <15 AST 28 U/L 15-37 [facility] ALT 24 U/L 12-78 [facility] ALKALINE PHOSPHATASE 70 U/L 46-116 [facility] pital TOTAL BILIRUBIN 0.5 mg/dL 0.2-1.0 [facility] TOTAL PROTEIN 7.9 g/dl 6.4-8.2 [facility] ALBUMIN 3.7 gm/dL 3.4-5.0 [facility] ID Date Data Source [id number] 04/25/2021 12:58:00 AM EDT [facility] [id number] Name Value Range Interpretation Code Description Data Arabella rce(s) Supporting Document(s) WHITE BLOOD COUNT 9.7 K/mm3 4.0-10.0 [facility] RED [facility]LOOD COUNT 4.28 M/mm3 4.00-5.50 [facility] HEMOGLOBIN 11.1 gm/dL 12.0-16.0 L [facility] HEMATOCRIT 34.7 % 36.0-48.8 L [facility] MEAN CELL VOLUME 81.1 fl 80-96 [facility] MEAN CORPUSCULAR HEMOGLOBIN 25.9 pg 27.0-31.[address] [facility] MEAN CORPUSCULAR HGB CONC 32.0 g/dl 32.0-36.0 [facility] RED CELL DISTRIBUTION WIDTH 15.1 % 10.0-14.[address] [facility] PLATELET COUNT 169 K/mm3 172-450 L [facility] MEAN PLATELET VOLUME 11.9 fl 9.0-13.0 [facility] pital GRAN % 49.6 % 50-80.0 L [facility] IG% 0.1 % 0.0-0.2 [facility] LYMPH % 39.5 % 25.0-50.0 [facility] MONO % 8.5 % 2.0-10.0 [facility] EOS % 1.4 % 0-5.0 [facility] BASO % 0.9 % 0.0-2.0 [facility] GRAN # 4.8 K/mm3 2.0-8.00 [facility] IG# 0.0 K/mm3 0.0-0.2 [facility] LYMPH # 3.8 K/mm3 1.0-5.0 [facility] MONO # 0.8 K/mm3 0.10-1.20 [facility] EOS # 0.1 K/mm3 0.0-0.5 [facility] BASO # 0.1 K/mm3 0.0-0.2 [facility] ID Date Data Source [id number] 04/16/2021 06:48:00 PM EDT [facility]: SIENNA FOSTER Observation Re port - [facility].VisitID: [id number] [place] [address] [phone] hilliard Date/Time: 04/12/2021 20:14 Weight:74.8 kg (S). Height/Length:68 inches (S). BMI:25.1 PAST HISTORYProblems:Anxiety Reaction [Chronic].Back Injury [Chronic].Depression [Chronic].PTSD [Chronic].Diabetes Mellitus [Chronic].Peptic Ulcer Disease [Chronic].Crohn's Disease [Chronic].Gastritis [Chronic].Hypoglycemia [Chronic]. Additional Surgeries:Appendectomy.Back Surgery. (T12- S1 FUSION)Cholecystectomy.Hyste rectomy. (Ovaries still in place). Medications:NexIUM Oral unknown, daily, last dose 04/12/21.Carafate Oral (Tablet 1 gm) 1 tablet, 4x a day, last dose 04/12/21pm.Protonix Oral 40 mg, 2x a day, last dose 04/12/21pm.Rexulti Oral (Tablet 0.25 mg) 1 tablet, daily at bedtime, last dose 04/11/21.Synthroid Oral (Tablet 125 mcg) 1 tablet, daily, last dose 04/12/21. Allergies:Amitriptyline.(hives) (suicidal thoughts)Bees.(Anaphylaxis)Maxalt.(Anaphylaxis) (coma)Seasonal. FAMILY HISTORYNo significant family medical history. (Electronically signed by Harley Morgan PA-C 04/13/2021 01:06) Name Value Range Interpretation Code Description Data Arabella rce(s) Supporting Document(s) ID Date Data Source [id number] 04/13/2021 06:12:00 PM EDT [facility] l DATE OF EXAMINATION: 04/12/2021 21:05 EDT ABD/PEL WITH IV CONTRAST HISTORY: Abdominal pain TECHNIQUE: This CT exam was performed using the following dose reduction techniques:automated exposure control, adjustment of mA and/or kV according to thepatient's size, and use of iterative reconstruction technique. Standard contiguous axial spiral imaging was obtained from the dome of thediaphragms through the symphysis pubis without oral contrast and withoutintravenous contrast administration and with coronal reformatting. COMPARISON: 03/22/2021 FINDINGS: Lower thorax: The visualized lungs are clear. ABDOMEN: Liver: Normal.Gallbladder and bile ducts: Status post cholecystectomy.Pancreas: Normal.Spleen: Normal.Adrenals: Normal.Kidneys and ureters: Normal. There is no nephrolithiasis or hydronephrosis.Stomach and bowel: Postoperative change is present in the stomach. There isslight thickening of the wall of the descending and sigmoid colon that isdecreased compared to the prior study..Appendix: The appendix is not seen. PELVIS: Bladder: NormalReproductive: The patient is status post hysterectomy. Spine: The patient status post L5-S1 anterior and L3 posterior spinal fusion andL3-L5 laminectomy. Metal hardware is present. IMPRESSION: 1. The patient is status post cholecystectomy.2. There is slight thickening of the wall of the descending and sigmoid colonthat is decreased compared to the previous study. This may representinflammatory bowel disease.3. The patient is status post hysterectomy. Electronically signed in PS360 by: Cas Bartlett M.D. 04/13/2021 9:35 EDT Name Value Range Interpretation Code Description Data Arabella rce(s) Supporting Document(s) ID Date Data Source [id number] 04/12/2021 10:15:00 PM EDT [facility] l TSYSORDER [id number] Name Value Range Interpretation Code Description Data [facility] rce(s) Supporting Document(s) LIPASE 368 U/L 73-393 [facility] ID Date Data Source [id number] 04/12/2021 10:15:00 PM EDT [facility] l TSYSORDER [id number] Name Value Range Interpretation Code Description Data [facility] rce(s) Supporting Document(s) GLUCOSE 87 mg/dL 74-106 [facility] BLOOD UREA NITROGEN 19 mg/dL 7-18 H [facility] ital CREATININE 0.82 mg/dL 0.6-1.0 [facility] SODIUM 139 mmol/L 136-145 [facility] POTASSIUM 4.3 mmol/L 3.5-5.1 [facility] CHLORIDE 103 mmol/L 98-107 [facility] CO2 24 mmol/L 21-32 [facility] CALCIUM 9.7 mg/dL 8.5-10.1 [facility] ANION GAP 12.0 mmol/L 5-12 [facility] GLOMERULAR FILTRATION RATE 78 mL/min [facility] GFR IS CALCULATED IN mL/min/1.73m2 JUDITH L FUNCTION: >90MILDLY DECREASED: 60-89MILDY TO MODERATELY DECREASED: 45-59 MODERATELY TO SEVERELY DECREASED: 30-44SEVERELY DECREASED: 15-29RENAL FAILURE: <15 AST 10 U/L 15-37 L [facility] ALT 26 U/L 12-78 [facility] ALKALINE PHOSPHATASE 77 U/L 46-116 [facility] TOTAL BILIRUBIN 0.6 mg/dL 0.2-1.0 [facility] TOTAL PROTEIN 8.5 g/dl 6.4-8.2 H [facility] ALBUMIN 4.0 gm/dL 3.4-5.0 [facility] ID Date Data Source [id number] 04/12/2021 10:13:00 PM EDT [facility] [id number] Name Value Range Interpretation Code Description Data Arabella rce(s) Supporting Document(s) HCG,SERUM NEGATIVE NEGATIVE [facility] False negative results may occur when th e levels of hCG arebelow the sensitivity level of the test. If isstill suspected, a first morning urine specimen should becollected 48hrs later.This test has a sensitivity of 10mIU/mL in serum gtf95mPW/mL in urine. ID Date Data Source [id number] 04/12/2021 09:56:00 PM EDT [facility] TSYS[facility] [id number] Name Value Range Interpretation Code Description Data Arabella rce(s) Supporting Document(s) WHITE BLOOD COUNT 10.7 K/mm3 4.0-10.0 H [facility] jay RED BLOOD COUNT 4.20 M/mm3 4.00-5.50 [facility] HEMOGLOBIN 11.1 gm/dL 12.0-16.0 L [facility] HEMATOCRIT 33.5 % 36.0-48.8 L [facility] MEAN CELL VOLUME 79.8 fl 80-96 L [facility] l MEAN CORPUSCULAR HEMOGLOBIN 26.4 pg 27.0-31.[address] [facility] MEAN CORPUSCULAR HGB CONC 33.1 g/dl 32.0-36.0 [facility] RED CELL DISTRIBUTION WIDTH 15.7 % 10.0-14.[address] [facility] PLATELET COUNT 358 K/mm3 172-450 [facility] MEAN PLATELET VOLUME 10.7 fl 9.0-13.0 [facility] pital GRAN % 62.7 % 50-80.0 [facility] IG% 0.2 % 0.0-0.2 [facility] LYMPH % 27.7 % 25.0-50.0 [facility] MONO % 8.4 % 2.0-10.0 [facility] EOS % 0.5 % 0-5.0 [facility] BASO % 0.5 % 0.0-2.0 [facility] GRAN # 6.7 K/mm3 2.0-8.00 [facility] IG# 0.0 K/mm3 0.0-0.2 [facility] LYMPH # 3.0 K/mm3 1.0-5.0 [facility] MONO # 0.9 K/mm3 0.10-1.20 [facility] EOS # 0.1 K/mm3 0.0-0.5 [facility] BASO # 0.1 K/mm3 0.0-0.2 [facility] ID Date Data Source [id number] 04/12/2021 09:16:00 PM EDT [facility] TSYSORDER [id number] Name Value Range Interpretation Code Description Data Arabella rce(s) Supporting Document(s) URINE RBC 1-3 /hpf 0-3 [facility] URINE WBC 0-2 /hpf 0-5 H [facility] URINE EPITHELIAL CELLS 1+ /hpf 0 [facility]spital URINE BACTERIA 3+ NONE SEEN H [facility] ID Date Data Source [id number] 04/12/2021 09:15:00 PM EDT [facility] ital TSYSORDER [id number] Name Value Range Interpretation Code Description Data Arabella rce(s) Supporting Document(s) URINE COLOR. [facility] URINE APPEARANCE CLEAR [facility] URINE GLUCOSE (UA) NEGATIVE mg/dL NEGATIVE [facility] URINE BILIRUBIN NEGATIVE NEGATIVE [facility] URINE KETONE NEGATIVE mg/dL NEGATIVE [facility] SPECIFIC GRAVITY,URINE 1.020 1.005-1.030 [facility] URINE BLOOD TRACE NEGATIVE H [facility] PH,URINE 5.5 5.0-9.0 [facility] URINE PROTEIN NEGATIVE mg/dL NEGATIVE [facility]ay URINE UROBILINOGEN NORMAL(0.2-1) mg/dL 0-1 R [facility] URINE NITRATE NEGATIVE NEGATIVE [facility] URINE LEUKOCYTE ESTERASE NEGATIVE NEGATIVE [facility] ID Date Data Source [id number] 04/02/2021 12:00:00 AM EDT [id number] Name Value Range Interpretation Code Description Data Arabella rce(s) Supporting Document(s) [facility]2 [facility] This lab was ordered by [facility]-COVID19 and reported by [employer]. ID Date Data Source [id number] 04/02/2021 12:00:00 AM EDT [place] ([facility]) Name Value Range Interpretation Code Description Data Arabella rce(s) Supporting Document(s) SARS-CoV-2 (COVID-19) RNA [Presence] in Respiratory specimen by MELINDA with probe detection negative negative Sars-cov-2 [place] ([facility]) ID Date Data Source [id number] 04/02/2021 12:00:00 AM EDT [place] ([facility]) Name Value Range Interpretation Code Description Data Arabella rce(s) Supporting Document(s) ID Date Data Source [id number] 03/31/2021 07:42:12 PM EDT [facility] Name Value Range Interpretation Code Description Data Arabella rce(s) Supporting Document(s) Discharge Summary [facility] IWETKo6zZpQYHtGl54/HHQpeFLYjb6PiUDcdSLr2UKepVEMpN7RuBKF5qB3cMTH3LWaABqPnCzYdWNSm [facility] [file] UA9pYCz+Di5Im7AxnwJ1uwWxANr3HXR6BU4BTDTXE2YKUn== ID Date Data Source [id number] 03/27/2021 08:58:00 PM EDT [facility] Name Value Range Interpretation Code Description Data Arabella rce(s) Supporting Document(s) Nursing Note [facility] ZPZZSa1iHdZLQyBw48/JAWeiJYWbl9PgOEnhHZq7OJviDJVdF9SxRGT4zQ5bETJ8BGtDNsNrGoGkQBR5 lbm [file] EvesBPvbZWANLr1Z ID Date Data Source [id number] 03/27/2021 08:57:40 PM EDT [facility] Name Value Range Interpretation Code Description Data Arabella rce(s) Supporting Document(s) Care Plan [facility] BIEFBq6mCsZHEoKi92/WVXaiEMRyt6XfODckRYv1JLyuWSGgQ5JtNSO0aI3jCGJ1DYwBHgDfTbHyYGE9 lbm [file] OkRW3WQu7BJtM4SEH9uENsDj3EVnXoVZDAEjEfAA3APMt= ID Date Data Source [id number] 03/27/2021 11:56:07 AM EDT [facility] Name Value Range Interpretation Code Description Data Arabella rce(s) Supporting Document(s) Nursing Note [facility] PXSHLz5mOnJGBlMh06/VHZzrVBWlu1VvCJwsVTn0WGrjZHYuV8LjTJK5nO3pWYK0WZuQYyDkFzCfTXP2 lbm [file] cone runner/VbYra/92EjEA9xvsk8vcJMZqCYT6GDfUpv8p2wEwibv/BvRC0+q0mf18wa2lWx1jx7sM/DPMscSF [file] 9GDQo= ID Date Data Source [id number] 03/27/2021 10:35:44 AM EDT [facility] Name Value Range Interpretation Code Description Data Arabella rce(s) Supporting Document(s) Perioperative Nursing Note [facility] DAGDVx0nXwNKHoPr46/HOJzwCRGzc6OuGTsnEPf0LFefKKReE7ZaOPO5hB1fZOQ6HSgWGjDfDdJzGQY3 lbm KmBajIRhTcQCNiXtzEZiXrREbbCaefyYHeEQ3PwMQ7ZCIoQ10jZEBqSJWuC4LfBBo7TL3+UGypJTW1im HrwP0CQIRUJ9cm9qXApG+wf+DlFpSXDPa1INAEufuZZEEezs/ICBFqm8mMmHOZVshOW9wk8MLLoEwdLp iq7hWQ48mLFvjD8o1pdIKUEKMw//AoFIPpEt6+gcrN Ptd41bDkXjmViOEDFujFt88OpZGyZFH4uISN6PiepRsHCYLlKJ0upTILrcg3VYArY1SdNXQISEEwWpn3 QDjTeSFKEuunlKM+WxOE109xVKhupZwdLp0oJow8ZL2ahQHnLGb8FTdwesyO2uy2uoxMwG6nX09yl4Wf RQvIt2+Mvm/iHj5Kn2WBcnRyWt+cY+gWwiHUQ6Qyrv QH4y7ogyc8dUGmSFpOeEV2ZnaudDOiLuXYBUUOG0GY83qt5PKh3k9xAgbWIn+UsNFWc1yzD7vrFP0MjG jMnEi3GZhotw1vkcIjEE0cAVV7VL/nlpeAJ1LkaVEP6l4bUCEjMi6h7Zpu2J35k814EGxdvHTAcbHgxb TrAs7iIGqfuzI/ttH6BNkMmzFVZOhJTHBq0wwq6FFa REYES+sHL5hWZx2w5fN8cpFrB7F8Zx0I2oAqvpU0y1B7N4yxa0BbLP/U1xTY8jcktJDpeAfr58UOVB+Lt3E [file] QZVqMpJcI0OOlsLBCKUx8G ID Date Data Source [id number] 03/27/2021 10:29:41 AM EDT [facility] Name Value Range Interpretation Code Description Data Arabella rce(s) Supporting Document(s) Perioperative Nursing Note [facility] ECBYAx4lDiBFCyAp20/KEDjmGUMkb2CvZSjxCFq2IPxuEBGwU2DwOTN5tN5mDTZ0KShZLvJqMyHlRAB1 lbm [file] RpKeYN7QECi= ID Date Data Source [id number] 03/27/2021 10:29:01 AM EDT [facility] Name Value Range Interpretation Code Description Data Arabella rce(s) Supporting Document(s) Anesthesia Postprocedure Evaluation [facility] ZARXIu1rTdEWVsEf74/WSZtuQSPrs2IxGKikAXp6WZfsBXNnQ3IfHKU0cZ6rDGY6VXeMIpPxCdShOEB7 lbm [file] Net Developer Consultant+nDL7arIt7UBqeFx0Ljq4jTrt7k2kO/YdS9ihj7qyC8L4wEe6DHc6eOC8L25pDO/FIytr4HawPK+NE m9wKpMKan3YVCOHj8vk0BGRfmlc/8uvFfSyrAUM69r fMZAtvtuebAU34LiFxpsbkTkeBQq2t1Qm49aLD6meOBl+/6vsI1Oor3KzP2JMpB0fJx9bMGZTvbk3u6u Dpb5qJK1yYGczbc93QVqB9RkgFe4Lj4xyA43mHS5xo3lo6UndeUtzE8wlOEsXlJGCXP/Jkc7cVQLfG0V A2yNm256oEK8uRPZ9AewaHKpB2uPvzegQgPe2eJHZI 3mV5eYyzNpBdDetQH09I2qWViPp/2hC7eTpQ0iFjz5lqQOuNTbg+QWjGPWw6/AFXspk4ftMcC+5Mx96G Y87sHTSaHnM21b9nWvqtwdMbN1SwILD2RaOvSjxHMNkzCnlqiUCqrqCoxncWSC9kd05B7em69sS0Y2Ig GCI6Yog4aWW+g35XNt1uApXqG8EafasPwoomLPaU0o fNDFlluExbVvqO7aAhS8snzI4Z90B11CN9ac3m4uOR3at4ek1NQEGrL7P9NT4dRsECLHzm6h74YvO3EH 2aFb1lphK1cEne+7fSe159BlEaRZ/SHwxFM0+VzuWbsOa1gqdVx9aFPDEf8T8oEZspPP08ghCgQwGPq7 9ngnwdEVOnPugM2JNH40Yz/vlad/tGuYJRuWP9fxenB [file] Rg0K ID Date Data Source [id number] 03/27/2021 10:28:51 AM EDT [facility] Name Value Range Interpretation Code Description Data Arabella rce(s) Supporting Document(s) [facility] ZRNVPx3zYwVTEpLt39/ALZgtFZLtu3LpYPkuLDt8FJldHCBeN3SiQWU6bY5nUFL9AOkQLsUkDrEbZFQ7 lbm [file] RwYJN7VRRsPDO6MRVmRZMzLeVqUL6UDz3YEcK0VZW4yDLlIq2KLbGlJoYBSnTtST3OOTt= ID Date Data Source [id number] 03/28/2021 09:48:00 AM EDT [facility] [address] [place] [address] [facility]lim[facility] PATHOLOGY CLIA# [id number] Surgical Pathology ReportPATIENT: SIENNA FOSTER CASE NUMBER:[id number] #: [id number] Date Collected:03/27/2021ccount #: [id number] Date Received:03/27/2021OB: 1980 Age: 40 y.o. Date Reported:03/28/2021ex: FLocation: [id number] Attending Physician:JUVE Rangelical Information: RULE OUT MICROSCOPIC COLITISSpecimen: A. RANDOM RIGHT COLON BIOPSY B. RANDOM LEFT COLON BIOPSY FINAL DIAGNOSISA. RANDOM RIGHT COLON BIOPSY: COLON MUCOSA WITH NO SIGNIFICANT HISTOPATHOLOGIC CHANGES.B. RANDOM LEFT COLON BIOPSY: COLON MUCOSA WITH NO SIGNIFICANT HISTOPATHOLOGIC CHANGES.CommentNegative for features of microscopic colitis.GrossA. Received in formalin, labeled Sienna Foster, random right colon biopsy, consists of two friable thin biopsy segments of soft tissue.The smaller segment is 0.1 x 0.1 x less than 0.1 cm. The larger segmentis 1.0 x 0.2 x less than 0.1 cm measured at its greatest dimension.They are totally submitted in the same cassette.B. Received in formalin, labeled Sienna Foster, left random colon biopsy, consists of three opaque focally red vascular gli steningthin biopsy segments of soft tissue that range from 0.15 to 1.1 cm. They each have a thickness less than 0.1 cm. They are totally submittedin one cassette. AP/jarodk Electronically SignedBy:ICD: R89.7x2 Wai Castañeda, [facility]: [id number] PathologistI ATTEST THAT THE ABOVE DIAGNOSIS IS BASED UPON MY PERSONAL MICROSCOPIC EXAMINATION OF THE SLIDES (AND/OR OTHER MATERIAL), AND THAT I HAVE REVIEWED AND APPROVED THIS REPORT.PERFORMED AT: [facility] [address] [place], [place] [address]THE TECHNICAL COMPONENT WAS PERFORMED AT [facility], [address] [place] [address].PAYROLL MACHINE OPERATOR: WAI CASTAÑEDA M.D. [facility]# [id number].SIENNA FOSTER Page 1 of 1 Name Value Range Interpretation Code Description Data Arabella rce(s) Supporting Document(s) ID Date Data Source [id number] 03/27/2021 09:15:49 AM EDT [facility] Name Value Range Interpretation Code Description Data Arabella rce(s) Supporting Document(s) Anesthesia Preprocedure Evaluation [facility] SWTGIk8aEnOVOaYq01/JZHilQJEew6IyQMbkESh7PBhePXJzG5QzHFO3vN3xVFB7VUlCNqZmMuUpDYY8 lbm [file] 9T9asb5Y+r7CwtRr3UWj26ZQFAFqBy38eg94B0+signal tower director [file] InwzF6cqTjNBbrWYI7IO9TXKPOA0OOXa== ID Date Data Source [id number] 03/27/2021 01:32:01 AM EDT [facility] Name Value Range Interpretation Code Description Data Arabella rce(s) Supporting Document(s) Nursing Note [facility] CLLLSw7fKlSYSmLh62/ZKWveZDCgu1MwPFfvIOz0EKakEBOwN5RzAGN0wZ2lJQA2TFkLNjIpFgXlCSG6 lbm [file] S5FLGbGWZ8KkY5UBM0ZSvhVoCjDO7XPe3MPpZ8XKI3yPFsQa4LQwkhGD7EVLJUP9QEFs== ID Date Data Source [id number] 03/27/2021 01:30:51 AM EDT [facility] Name Value Range Interpretation Code Description Data Arabella rce(s) Supporting Document(s) Care Plan [facility] KRNYUr0vPhBZPpUz69/NGIooCXUar5FbSUqwVYe8TCojPUYrC4DkDQY1nH3rKGT2MJaDHiDbDpRvDEW9 lbm [file] UhNgaxHNWtVRU2VTn7JJlrRkkjJ3WvLCi+OY8nYAb+Ra2Uo8YqkdH5mrDjCXk0UKk9GTzoHZWAJi7A ID Date Data Source [id number] 03/26/2021 06:10:50 PM EDT [facility] Name Value Range Interpretation Code Description Data Arabella rce(s) Supporting Document(s) Nursing Note [facility] WBKXAw3nAwAACeDg83/EPXckMPBgo1SzXFofSJr4DKdqXHVfH8QkFBI7uZ8jHDH1EPfGToLmTwNjBXE9 lbm [file] ukRIURFe8K ID Date Data Source [id number] 03/26/2021 06:01:18 PM EDT [facility] Name Value Range Interpretation Code Description Data Arabella rce(s) Supporting Document(s) Progress Notes [facility] TFUPVy6pSaNJIdIj70/NRUpqXXOdg3PlIUvlUOv2BXzlMOEfE0FtYYZ8fK6zNBC3OGsRHcQwPzOlJDZ4 lbm [file] K3LXT3NKlgWCBRPm0P ID Date Data Source [id number] 03/31/2021 04:38:00 PM EDT [facility] Name Value Range Interpretation Code Description Data Arabella rce(s) Supporting Document(s) Calprotectin, F <16 mcg/g <=50.0 (Normal) Normal (applies to non-numeric results) [facility] Test Performed by:[facility] [address] [address]Aow Director: Rashawn Vides M.D. Ph.D.; CLIA# [id number] above 1 analytes were performed by [facility] ([id number]) ID Date Data Source [id number] 03/27/2021 11:30:00 AM EDT [facility] Name Value Range Interpretation Code Description Data Arabella rce(s) Supporting Document(s) Campylobacter Not Detected Not Detected Normal (applies to non-nume ny results) [facility] Norovirus Not Detected Not Detected Normal (applies to non-numeric r esults) [facility] Rotavirus Not Detected Not Detected Normal (applies to non-numeric r esults) [facility] Salmonella Not Detected Not Detected Normal (applies to non-numeric r esults) [facility] Shiga Toxin 1 Not Detected Not Detected Normal (applies to non-nume ny results) [facility] Shiga Toxin 2 Not Detected Not Detected Normal (applies to non-nume ny results) [facility] Shigella Not Detected Not Detected Normal (applies to non-numeric r esults) [facility] Vibrio Not Detected Not Detected Normal (applies to non-numeric r esults) [facility] Y. enterocolitica Not Detected Not Detected Normal (applie s to non-numeric results) [facility] Enteric Pathogen Panel:Testing performed by reverse driver education instructor, PCR and array hybridization.A negative test result does not rule out the presence of diseaseThe above 9 analytes were performed by [facility] [id number] [id number],[place] [address] ID Date Data Source [id number] 03/26/2021 02:23:09 PM EDT [facility] Name Value Range Interpretation Code Description Data Arabella rce(s) Supporting Document(s) Progress Notes [facility] SNHSFs0dUxJWRxUt36/JUZliFJOay4GaZCbhCGg7MWoiVAWcO2IeTLY8aJ5cMWR9LFvCAfScUqLgKKZ0 [facility] [file] IkWaGxT6QMbdEDE1HVLjHXWyDrj+YJ9uVQa+Ra1Cr9BtvoT4loZwNIgeKaE5Ab8BRPKFW5QRKm== ID Date Data Source [id number] 03/26/2021 12:38:41 PM EDT [facility] Name Value Range Interpretation Code Description Data Arabella rce(s) Supporting Document(s) Care Plan [facility] YTEFNv0hUqFGReWf46/HECpqFUAtf6NgACvcQXd0BIfvEBTgB2QvXUB7dQ3tPWG5YDaAEwPxOpRkPZJ2 lbm [file] josé miguel/VnCugzHbVNoTqN+scOLiSTzfMms7jmZw2EjUywEpieUY81BZ4X2zX9GhHHzM6RM6VOAfBz2dF3/5 [file] construction laborer+kFwtvByOdkG59N5e0Gq8NH/G48aOLqKY9UKdJ4Kc6Ew813VSkuf3rdmpu/0L/Bz9WACkq2zxIo/l [file] AgICAgICAgICAgICAgICAgICAgICAgICAgICAgICAgICAgICAgICAgICAgICAgICAgICAgICAgICAgIC AgICAgICAgICAgICAgICAgICAgICAgICAgDQogICAg ICAgICAgICAgICAgICAgICAgICAgICAgICAgICAgICAgICAgICAgICAgICAgICAgICAgICAgICAgICAg ICAgICAgICAgICAgICAgICAgICAgICAgICAgICAgICAgICAgDQogICAgICAgICAgICAgICAgICAgICAg ICAgICAgICAgICAgICAgICAgICAgICAgICAgICAgIC AgICAgICAgICAgICAgICAgICAgICAgICAgICAgICAgICAgICAgICAgICAgICAgDQogICAgICAgICAgIC AgICAgICAgICAgICAgICAgICAgICAgICAgICAgICAgICAgICAgICAgICAgICAgICAgICAgICAgICAgIC AgICAgICAgICAgICAgICAgICAgICAgICAgICAgDQog ICAgICAgICAgICAgICAgICAgICAgICAgICAgICAgICAgICAgICAgICAgICAgICAgICAgICAgICAgICAg ICAgICAgICAgICAgICAgICAgICAgICAgICAgICAgICAgICAgICAgDQogICAgICAgICAgICAgICAgICAg ICAgICAgICAgICAgICAgICAgICAgICAgICAgICAgIC AgICAgICAgICAgICAgICAgICAgICAgICAgICAgICAgICAgICAgICAgICAgICAgICAgDQogICAgICAgIC AgICAgICAgICAgICAgICAgICAgICAgICAgICAgICAgICAgICAgICAgICAgICAgICAgICAgICAgICAgIC AgICAgICAgICAgICAgICAgICAgICAgICAgICAgICAg DQogICAgICAgICAgICAgICAgICAgICAgICAgICAgICAgICAgICAgICAgICAgICAgICAgICAgICAgICAg ICAgICAgICAgICAgICAgICAgICAgICAgICAgICAgICAgICAgICAgICAgDQogICAgICAgICAgICAgICAg ICAgICAgICAgICAgICAgICAgICAgICAgICAgICAgIC AgICAgICAgICAgICAgICAgICAgICAgICAgICAgICAgICAgICAgICAgICAgICAgICAgICAgDQogICAgIC AgICAgICAgICAgICAgICAgICAgICAgICAgICAgICAgICAgICAgICAgICAgICAgICAgICAgICAgICAgIC AgICAgICAgICAgICAgICAgICAgICAgICAgICAgICAg FROwQIq7B3jeDUCaQYEtSW2mXCg3Vs1+DBkEUxMfEHG7ylPxzS9VJH3xx0FmGEjzLFZla3KfQEa0LB8I JQAbYSnbKH1OYKhxir1GPSNbYTHgdOGLv5slZxKjTKD5BLXtTtodHE0FCQOaH8khngKjGCTcXFAVRWob BPXYHL9MMmJeS5OehY77AIVBZe2+DQplbmRvYmoNCj W0OSWwb5FzGAs1OJ6XVXIyTldpj2TyRddqFHETEEzbQP5WYVK7CXI6ASZrHl6CTBHeV301jyXtAG7MRz 2EWaMoQW5ktf7ELoksUYCjUotLDvl9HRutHE0NkABiFWuBNGMaGHSuKC2yZcaeA7Yoq6AoouOwEUPSxk 4iDNVnGMWPCyQapWH2SxB5CfNfGlFtOMO4QyphNZ2a RAsfXG1CZFC0VGzdTRZpVMCiA6nSTyYfYXmkPKGplVfjSB2BZcKmQ9TfamOaiHJaOdReQVROFf9+DQpl htDyWrlVSiD2DYZks5VzOPe8TR9GFSQxORmxBI5THITlbM0tOMxgOU4PMjMmAAAySEFBLmImR66zaCLz RJy3M0UaJjTnGMEwXcdwJTHyFCqqTfMzMGKiZrGnHU ogID4+ID4+EWueEU2QZHuwbcWtBTKrRf4STQWaPBDcGA0ySYYfSREbK0Z6xTqmMNUMVlJoR7agfwixNN 4uTYOjB824fQhoeeCtVHY4EXHcDm7SZHJiKKY6RTTydSPwDdObUTRICIslUF1GlYFiGPP2fB0zONzyWJ TlOCAiJ3rKKoDryLiuFF29eRensvUodGOqUTo+Pg0K UO5hr9WuNGh0znOiVBfqZBIyAGaeZBPaAPVzYFWpRXT7RNB9JSTGSnHpEWOnYCFzXEdqDEDiTBWnqg1Q BMPaYZGpZRZvRsUeAMPiQSAxPDcrJFQcYXBnLRh3HFDqWNAvBG8OXtFnMFUeOQWsDNirVKYeEOTstf7Y MDAwMDAwMzMyOSAwMDAwMCBuDQowMDAwMDAzNTMzID DdVEJmRY8NBjYqNXEfBYJ0EthoGPOmRHOnpu9DYTXvATHyVLU9AVMsIXXnRTQgOMxpFVErKOG8JhE4ZR BoYLZsPW7ZFwWqZGYeJWR0DBBfLTXtFPUwue7EHFJoRGEdRzNyEmEaTLWjUFWiGBymGZAjSWE6PIb9MY AdPCKmTX3DSbRbXBTlPZraJGCtXIQeMYDvqf0MDQYb AGNpRKY2NyYjMPFoUJXwBAeaMTErHFE0IaH6YOLuXPOyDP9EKmZaFEWpSNb9MxyrZWDkTVAbfq9OXIWn GBUhUPpiFsHcKRBoVBYvOVxgFILfGKXhUyb8VTAqNGTdQQ8CGfFaVPOfWMQ7MRFxAOHsNJGltt2RGTDe FCMnIXQ6AELuROFiIYIdTHcyFBUgRAU7EMY8NENgLL OmWT9DVkQoPDKuYvFfIZkkNAFqAKQebk0DKHMhTIFzYBQ5YcOwXAIpHTLgQKuoMIMuSBKkWTGgHGXkAS FhEX0DFiJmCLXsDvZqQNZgHCLdSGLlql0KRKJeUGOpZXzvGLIoQBUdXFIvRXynVQHqDYLmIAn1TBSxBK WuKE4OHnPhCCDjKkYwMWemZNGbTHXkfo5CCBOvZEOh YiH2YaTdPIIlZFJiTFz5tyZxkEKuXCk2RS7GK5GxnmLfJuJBKd8Jp245ZTJ1XIBlZf9MI7yqLh7vOKQq TXILEh4ULHa2AqGdKJF8NrD9GHkqIxJ3OtLyGYy9NHZpE0ImVEEiEye+DKmuN2S6Eoq6EEQmLQAnKptc ViYaYpGlXHMqFHAxSIOvCN2mIAIXIr6+HLipyVUuaVqpCMZSXdWgUaQyTEzuZYJPOm9U ID Date Data Source [id number] 03/26/2021 05:02:00 AM EDT [facility] Name Value Range Interpretation Code Description Data Arabella rce(s) Supporting Document(s) Blood Urea Nitrogen 5 mg/dl 7-18 Below low normal [facility] Creatinine 0.79 mg/dl 0.51-0.95 Normal (applies to non-numeric resul ts) [facility] N-Acetylcysteine (NAC) and Metamizole em ve the potential to falselydepress Creatinine results. Baseline values before medication adminstration are recommended. Patients undergoing treatment with phenindione will have falselydepressed results. Patients on phenindione therapy should be tested with an alternativeCREA method.Toxic levels of acetaminophen may lead to falsely depressed results forpatient samples. Glomerular Filtration Rate 81.00 mL/min/1.73m2 [facility] GFR Reference Ranges:Normal Function or Mild Renal Disease,if clinically at risk:>or= 60Moderately decreased:30 - 59Severely decreased:15 - 29Renal Failure:<15 Please note that the MDRD equation requires an additional adjustment forAfrican-Americans (multiply the GFR result by 1.210).Glomarular Filtration Rate (GFR) is estimated based on the MDRDequation, which assumes a steady state for creatinine (Yaneli Int Med 139/2 137-149, 2003), as recommended by the NationalKidney Disease Education Program in conjunction with the National Institutes of Health and the National KidneyFoundation. The Kelley method used in calculating this result is traceable to IDKY standards. Glucose 82 mg/dl 70-110 Normal (applies to non-numeric resul ts) [facility] Sulfasalazine has the potential to false ly depress Glucose results. Sulfapyridine has the potential to falsely elevate Glucose results. Baseline values before medication administration are recommended. Calcium 8.0 mg/dl 8.5-10.1 Below low normal [facility] Sodium 140 mEq/L 136-145 Normal (applies to non-numeric resul ts) [facility] Potassium 3.6 mEq/L 3.5-5.1 Normal (applies to non-numeric resul ts) [facility] Chloride 110.0 mEq/L 98.0-107.0 Above high normal [facility] Anion Gap 6.7 [facility] Carbon Dioxide 26.9 mMol/L 21.0-32.0 Normal (applies to non-numeric results) [facility] The above 10 analytes were performed by [facility] [id number] [facility], ,[place] [id number] ID Date Data Source [id number] 03/26/2021 05:02:00 AM EDT [facility] Name Value Range Interpretation Code Description Data Arabella rce(s) Supporting Document(s) Magnesium 1.8 mg/dl 1.6-2.6 Normal (applies to non-numeric resul ts) [facility] The above 1 analytes were performed by [facility] [id number] [facility], ,[place] [address] ID Date Data Source [id number] 03/26/2021 04:45:00 AM EDT [facility] Name Value Range Interpretation Code Description Data Arabella rce(s) Supporting Document(s) WBC 4.62 x1000/ul 4.80-10.00 Below low normal [facility] RBC 3.66 x1Mil/ul 4.20-5.40 Below low normal [facility] Hemoglobin 9.4 g/dl 12.0-16.0 Below low normal [facility] Hematocrit 30.0 % 37.0-47.0 Below low normal [facility] MCV 82.0 fL 81.0-99.0 Normal (applies to non-numeric resul ts) [facility] MCH 25.7 pg 27.0-31.0 Below low normal [facility] MCHC 31.3 g/dl 32.2-37.0 Below low normal [facility] RDW 15.9 % 11.5-14.5 Above high normal [facility] Platelet Count 232 x1000/ul 130-400 Normal (applies to non-numeric results) [facility] MPV 10.8 fL 9.4-12.4 Normal (applies to non-numeric resul ts) [facility] Nucleated RBCs 0.00 % 0.00-0.20 Normal (applies to non-numeric r esults) [facility] Abs. Nucleated RBCs 0.00 x1000/ul 0.00-0.02 Normal (appl ies to non-numeric results) [facility] The above 12 analytes were performed by [facility] [id number], ,[place] [address] ID Date Data Source [id number] 03/26/2021 12:22:38 AM EDT [facility] Name Value Range Interpretation Code Description Data Arabella rce(s) Supporting Document(s) Nursing Note [facility] RUVWQt8wDaRJGrVj52/CYTvrGYQml7UfGOkmZLd0GBcxDIClH5WmFHM1oL6zHEQ1HZyCTtPeZdBfXSG1 lbm [file] AdZlSdYL8YCy6AVbF3WUA9eSYuNx9QBujdAB3TBEMJU5VOGl== ID Date Data Source [id number] 03/26/2021 12:17:58 AM EDT [facility] Name Value Range Interpretation Code Description Data Arabella rce(s) Supporting Document(s) Care Plan [facility] WDUTCs1yAuAFTeNj15/DOHukLWIsf2KwIEwtRHw0OAqvIETzC4DyNHI7rX4tFKX4KOsBBxVqNqOxVUW3 lbm MnMsxVQuNrISLpIffPQiIpTBngUgfpdEYcAE4SiAY6QJNrC05yDULnVBKkE0CiQGJ6GZa+Hf4MXIUwuZ HgBH9XItyR5PtLc4h9VY14af9MmiOiwO8UCOC88rM3is4yPs+zi6pwyVIN62VXHdADba7gGXS7t2fLXv h8pP8HQiV+P1N934QWFcy7lCiOHkXyc/J//VWnkvUm 5Uuy4XCSORiOWj/XPKZKeuJ4h7X/WcW7FagtgOKNBrpwKdzqQ5siFxlNcm0eJlNHEqo0DqdAJJ9mPg9c yB648VXHT4ub4F2h28XjpsZRGwjhOqtf//c/05B7c2qRrMHbf7eaToVzmjtqdTfumEMtsbqgauzsY3ja roe2bsgxx7kUR+wpla19Ts/xnp4C7V/h2ICOEeGVmy 0fvZUVK0dQykFMl1p2UGiuKxtvDS0tPOKX+6qFSDEeN7ul0RRVNFEaNWwHMz3czDfZBfYhknmZRpVUkg ousoZ/Vs2Lu/4rZPj22atGUwXcrZ5Gr8F/J+Jackson+zvWsfIP3ILmZOl2lSwIuj1xmszFExee+Q+jMTtfFl qcm2xKuy88GZnddWad10KKEAdNXDZ2SjYQ5/Ztf9Q9 2RpKDSY4okgGWbKoq9epSCCyNAiskhVTTzTtIQeJr/X3WYFThb7S5GMH2OrCT2kjdYkWd3d/fzzDb0Nt 3m/V+DWPN+NXfIGoburqya1ZxoijTq54cnvowNK4qtzdTt5Xr3mjs8NZyH/d5ZRQ+uXOr/K+Qx97eI6L 7fpb10p02PY/Ah0whox0exflJYxlesLtWqzmfzw1VP [file] EcWLDaMPMaXnWvIqn7AkQ1HNUxSQUeOxOpMU4YWc4PBtR6UNR9eFPdNt6JKMe3Dr1AKVOHG6JXJz== ID Date Data Source [id number] 03/25/2021 07:13:18 PM EDT [facility] Name Value Range Interpretation Code Description Data Arabella rce(s) Supporting Document(s) Care Plan [facility] EPSWKi7eRxMOAvKp53/SYNjxXIJgz3OiJLgzMYd1XVtuUYXuX3WqBLN9cN7gNEV2GZcYSxThNnWsIVF2 lbm [file] cone runner/VbYra/16SvXI6nlcq2brCZZuFLH4ZFvYyo5r1qBiewg/BvRC0+o9ny44bw1kRf6re8kW/DPMscSF [file] XSANCj4+UUjwpPWipFdlBZKDVaAaIDN3UNogXMJVEp4T ID Date Data Source [id number] 03/25/2021 07:12:23 PM EDT [facility] Name Value Range Interpretation Code Description Data Arabella rce(s) Supporting Document(s) Nursing Note [facility] VKUXBq4vQtHMPxAc74/BJUqqSYCtn7JuFCqoOXt3GEubGLOhD1IjXOW3yW9hUNL4JLbJVhXvJlXuKFC2 lbm TvPjtLStYuWJZnObyNBhWvNWniYbgkeRIqJM9MzQU5BMFuW52ePTIyIVXxY5GlAQMxHeT+Su9UUFOpbP TlPL9UJpaE6IjofaF9SE6X1a/OY4lvpmk6nM+EkLiUSkgUSqPzcjgPKdmGQG+kCQV+/dmNvUm+wZo27R ZB+9LP3NaMm/vGuyEKf1+r1ibnKJM/y6+uNPTxlB4+ mJU4dRp4dw3jFuBpvSjsCQZgG/2rQq/TjUwWk1BH8bs77NdsSIhUgB1tDadFLH41zz0v20s5Ji8P2GsS jx4hamXQj+H2Vcq6kp97cQh6vlbnA/xUzpKQaW0IfquhEkWbytiiaM2B7EEors0FeLYdzAAHSPZGMrCy TodOo3sX8pcdZHiYsp4E60xWNExh+pjUJ4SU+jZEGO qXYVKqtYt2TjFMh8Eic+7eNSvpWAJFLAjMx5WQc3b6XtI30sHRUAeHxVpokGZDCCscEMnX4sOtA3rbsM JC3T0Lk9yZyLjFyIgua91TmkiqYtFI87Lvyha9C6dT0POXIdv98apCzQLePvjVTo42Xh/9I2WbdMVt3i N0s9Wt0ZXhPnKdt4f2c4+/vuXW+hS0KEsHndTTTeJf vZP2ljXko3uHpUiMYbf7e/IXwRczpI1czbWeA5IYcMI/aPD6/zQobya7Dlyu38XfffNCBWrPuB60WLcC OmGct0zY9A0i/kTjhD7XGvjFb7IfHC8g87j18yTCmECDr8p4l60H15xss+gvkd+FhE7GfOoru6ReYFol f2G/SP9s61Y637OfUVdzq4r4Nq5jOghHI5vlRv/Clau [file] ywYPZLGu9Y ID Date Data Source [id number] 03/25/2021 05:38:02 PM EDT [facility] Name Value Range Interpretation Code Description Data Arabella rce(s) Supporting Document(s) Progress Notes [facility] DODZOf8bQvNOIiQz97/JBXsdMDOpw8YcWHdqEDk7RRbnDSYjH7AwKFM0pY1dIPV2DHeCNcGyHsLnZSM3 lbm [file] GVOtBwIP6RPBh= ID Date Data Source [id number] 03/25/2021 03:02:31 PM EDT [facility] Name Value Range Interpretation Code Description Data Arabella rce(s) Supporting Document(s) Anesthesia Postprocedure Evaluation [facility] PEVLTx2bZxEYNoUs41/ZYRiqVMYmx7YiOKzaBYt1NLxbSCSqG8AoMUF0xJ6gUZL5IApUBcVcCnDhXYR4 lbm [file] MDAyMzQxMCAwMDAwMCBuDQowMDAwMDIzNTgxIDAwMD XyZJ8CSkRfDCarPQFQKki7MHooT2g5PDXmBJ4SI3Znr8TtNnnvEZRFCEucBD0thjLhTBQdAv6PJ0zLPy vuG6MtTDB7ZCnwVNU4KGIxPVCoUXY5WbU7ZeWaWsHxFn2zQYMuU0W9MKl5NOE4Xey8HoZxZzVbNISfOW l7LoJcX6LzZmKcPJ8JYe5DZoX6QWK7eJSkYp8SYxT9PzBDBaDrGR5VHOy= ID Date Data Source [id number] 03/25/2021 10:57:36 AM EDT [facility] Name Value Range Interpretation Code Description Data Arabella rce(s) Supporting Document(s) Nursing Note [facility] GWCSIk3yEpOVOrEi33/DOLllQLAvv9QiQPfdUSs2CVwgIZLbU3KaITJ1yS8nYUL5PElRTmCoGjZmUMB1 lbm [file] QvBycsYHKrReYwJZY6XJK+ZW4gNIv+Ln2Yo6AhbgD0guLiNBkvUUkvCf2MQUYHX6PKRl== ID Date Data Source [id number] 03/25/2021 10:48:41 AM EDT [facility] Name Value Range Interpretation Code Description Data Arabella rce(s) Supporting Document(s) Nursing Note [facility] IXVPPw7pVqTOIqKm72/TIDgmZARxh5WwBBpbEWs6FNfoBAZwU4PlOPS8jI3qZIU2LMiUKjGqAsWgNMU6 lbm [file] 1RToB3FQK9rLRxWj3ZTdD8YRMTJxVhMQ4WQBc= ID Date Data Source [id number] 03/25/2021 10:42:08 AM EDT [facility] Name Value Range Interpretation Code Description Data Arabella rce(s) Supporting Document(s) Procedures [facility] JMKRVx8qNrFSAaFs03/LQHfoHSClo8UuVLztCEl3NBcnRKLnM1UlUME6kI9hWYU5BXvVXzFuSiXoSJG8 lbm [file] ChNmL2O4JnULDbObBeIH5VWh7XBlN2LDZ5pLPaQp2CXmC2AyCAHhOxKM1VOPk= ID Date Data Source [id number] 03/25/2021 10:11:38 AM EDT [facility] Name Value Range Interpretation Code Description Data Arabella rce(s) Supporting Document(s) Anesthesia Preprocedure Evaluation [facility] PVGLIn7cPyZYJrCu22/JMPwvKIDtm6FpORzvREl8AKsdNHFrO3NqICO4fM3uRIV2ZSwZPhIgPgTfUDO0 lbm [file] NbYN5RTy1FGtB4JSS6uLEoSy2IQhVpIstAXkUlKD9WYKy= ID Date Data Source [id number] 03/25/2021 09:23:31 AM EDT [facility] Name Value Range Interpretation Code Description Data Arabella rce(s) Supporting Document(s) Perioperative Nursing Note [facility] EVCDVa2wZwPPUaSv80/QGNytMPGkm2UpXTopPMa9VVdaPQDwJ4UnIIY6xT4kBLP0LGuLGaTcKrCzBNJ3 lbm YvJzmSUbUkYLHvZbhONtYcGWwvIwqyeGRpCM3TgXD8QSJdM06wLJKcERAtB8EwCQfmPK4+NAyiNWH6ax EjpW7UBLTJTJex82CShSacJ+pDGv2tu6z7UlCbRlKChRudP2gAEnkwtFkS9aHe91D6ydbjWQyvomApF6 s0s+rGbdv5EsS/V5jRYHrgMj0Cl2zSpimRwgeLdEJy ztw6FepcXOISmO8Qvgo24KOgGoeLXI/6uIYIjExQBhuAYFLYwwYR0PwT+lYCPXB8VcIQJN9oYcszuyCZ 0VYcS7C0uj91JR+weBd65UZG5n/YsgCFecXOlyxhhA1AQmkeJpcEbACtLNABdrxqsyKWwFsEImcmsa4o 6jJV8E8qZmegtQHU4YBUSqFpJx7siWunskJZjDg0z1 ECBnha56H8a7QsL3ubcChs4iOkLUjElV6NIppI0fixGCfe/dFUo+kAlByVymcrUMlQdLTcVyiUDJruQS zCy+Gh2rjUKE68ZsU6KcPWTkHZn21Hh49Cx3ioQXcDqPpbCkRLybUtg5GV3rc9+I0BxSNzEYtyzp+t6H CcrLZpNHzauEKpdcN7/afmf36DbwXAa3c4aMmNgCVV oMsgxET7hTQ8sgtRTw8c+tukrAje6cQPe8+PV70tBFeG1nD19kzokNEpgeGELygSKQ4iTY9K67Q8BD4s VPy9Yu2Oo912SmSyrljRybdUYE4g4bUO+m7Fqk89x4R+6C7HDFV15c/eIBjdKII3C7ckEZ/Jpfpd/grid operator [file] 9GDQo= ID Date Data Source [id number] 03/25/2021 07:03:25 AM EDT [facility] Name Value Range Interpretation Code Description Data Arabella rce(s) Supporting Document(s) Nursing Note [facility] YEKXMa8rPjMGSpHx59/JTJnmMPKkh2LdRCseBGi7WVuxINXzU2GsYIY3nB4sZJV6REjWFuUsYdVwDZF2 lbm [file] cone runner/VbYra/80FsYF1lial9fnGNUlROH7HTjGfz7v8rXemld/BvRC0+n1kd42cw8oVv4ax9xT/DPMscSF [file] 0K ID Date Data Source [id number] 03/25/2021 05:44:00 AM EDT [facility] Name Value Range Interpretation Code Description Data Arabella rce(s) Supporting Document(s) Blood Urea Nitrogen 6 mg/dl 7-18 Below low normal [facility] Creatinine 0.72 mg/dl 0.51-0.95 Normal (applies to non-numeric resul ts) [facility] N-Acetylcysteine (NAC) and Metamizole em ve the potential to falselydepress Creatinine results. Baseline values before medication adminstration are recommended. Patients undergoing treatment with phenindione will have falselydepressed results. Patients on phenindione therapy should be tested with an alternativeCREA method.Toxic levels of acetaminophen may lead to falsely depressed results forpatient samples. Glomerular Filtration Rate >90.00 mL/min/1.73m2 [facility] GFR Reference Ranges:Normal Function or Mild Renal Disease,if clinically at risk:>or= 60Moderately decreased:30 - 59Severely decreased:15 - 29Renal Failure:<15 Please note that the MDRD equation requires an additional adjustment forAfrican-Americans (multiply the GFR result by 1.210).Glomarular Filtration Rate (GFR) is estimated based on the MDRDequation, which assumes a steady state for creatinine (Yaneli Int Med 139/2 137-149, 2003), as recommended by the NationalKidney Disease Education Program in conjunction with the National Institutes of Health and the National KidneyFoundation. The Kelley method used in calculating this result is traceable to IDMS standards. Glucose 92 mg/dl 70-110 Normal (applies to non-numeric resul ts) [facility] Sulfasalazine has the potential to false ly depress Glucose results. Sulfapyridine has the potential to falsely elevate Glucose results. Baseline values before medication administration are recommended. Calcium 7.8 mg/dl 8.5-10.1 Below low normal [facility] Sodium 140 mEq/L 136-145 Normal (applies to non-numeric resul ts) [facility] Potassium 3.4 mEq/L 3.5-5.1 Below low normal [facility] Chloride 110.0 mEq/L 98.0-107.0 Above high normal [facility] Anion Gap 8.7 [facility] Carbon Dioxide 24.7 mMol/L 21.0-32.0 Normal (applies to non-numeric results) [facility] The above 10 analytes were performed by [facility] [id number], ,[place] [address] ID Date Data Source [id number] 03/25/2021 04:56:00 AM EDT [facility] Name Value Range Interpretation Code Description Data Arabella rce(s) Supporting Document(s) WBC 4.87 x1000/ul 4.80-10.00 Normal (applies to non-numeric re sults) [facility] RBC 3.54 x1Mil/ul 4.20-5.40 Below low normal [facility] Hemoglobin 9.0 g/dl 12.0-16.0 Below low normal [facility] Hematocrit 30.0 % 37.0-47.0 Below low normal [facility] MCV 84.7 fL 81.0-99.0 Normal (applies to non-numeric resul ts) [facility] MCH 25.4 pg 27.0-31.0 Below low normal [facility] MCHC 30.0 g/dl 32.2-37.0 Below low normal [facility] RDW 15.9 % 11.5-14.5 Above high normal [facility] Platelet Count 201 x1000/ul 130-400 Normal (applies to non-numeric results) [facility] MPV 11.1 fL 9.4-12.4 Normal (applies to non-numeric resul ts) [facility] Neutrophils 50.5 % 40.0-74.0 Normal (applies to non-numeric resu lts) [facility] Lymphocytes 35.7 % 19.0-48.0 Normal (applies to non-numeric resu lts) [facility] Monocytes 10.7 % 3.4-9.0 Above high normal [facility] Eosinophils 2.1 % 0.0-7.0 Normal (applies to non-numeric resu lts) [facility] Basophils 0.8 % 0.0-2.0 Normal (applies to non-numeric resul ts) [facility] Immature Granulocytes 0.2 % 0.0-0.5 Normal (applies to non-nu meric results) [facility] Nucleated RBCs 0.00 % 0.00-0.20 Normal (applies to non-numeric r esults) [facility] Abs. Neutrophils 2.46 x1000/ul 1.92-8.31 Normal (applies to non-numeric results) [facility] Abs. Lymphocyte 1.74 x1000/ul 1.20-3.70 Normal (applies to non-n umeric results) [facility] Abs. Monocytes 0.52 x1000/ul 0.14-0.97 Normal (applies to non-nu meric results) [facility] Abs. Eosinophils 0.10 x1000/ul 0.00-0.76 Normal (applie s to non-numeric results) [facility] Abs. Basophils 0.04 x1000/ul 0.00-0.22 Normal (applies to non-n umeric results) [facility] Abs. Immature Gran. 0.01 x1000/ul 0.00-0.02 Normal (appl ies to non-numeric results) [facility] Abs. Nucleated RBCs 0.00 x1000/ul 0.00-0.02 Normal (appl ies to non-numeric results) [facility] The above 24 analytes were performed by [facility] [id number], ,[place] [address] ID Date Data Source [id number] 03/25/2021 03:48:12 AM EDT [facility] Name Value Range Interpretation Code Description Data Arabella rce(s) Supporting Document(s) Care Plan [facility] NOWMKs8cSmDVTgFk34/KUGmkBVBmw2LbDAhlYFc2STlcTVIcN9MqJLB8iF8fJLN9DNiEDrEkMoYqAQI5 lbm [file] KhOTCbUVI8KIEtZPF7WpEgRkPhGBXdMiY5Mx0bMU ANCj4+WZlrqFQfwFrsSWSHVzR1IsMfDEyqYGNRQt0L ID Date Data Source [id number] 03/24/2021 06:47:36 PM EDT [facility] Name Value Range Interpretation Code Description Data Arabella rce(s) Supporting Document(s) Progress Notes [facility] VODMOp6dFyEUVnJs05/NRHvcPDUwq5VgLMrvPCf9QKjuYVKyU9PrMOP7fS4lGRD7AAvGAqDqGzOcVEC1 lbm [file] kQ1VvfQeHOETi2vrr+IOxXfu/OxsVS7pr69w/O [file] AgICAgICAgICAgICAgICAgICAgICAgICAgICAgICAgICAgICAgICAgICAgICAgICAgICAgICAgICAgIC AgICAgICAgDQogICAgICAgICAgICAgICAgICAgICAg ICAgICAgICAgICAgICAgICAgICAgICAgICAgICAgICAgICAgICAgICAgICAgICAgICAgICAgICAgICAg ICAgICAgICAgICAgICAgICAgDQogICAgICAgICAgICAgICAgICAgICAgICAgICAgICAgICAgICAgICAg ICAgICAgICAgICAgICAgICAgICAgICAgICAgICAgIC AgICAgICAgICAgICAgICAgICAgICAgICAgICAgDQogICAgICAgICAgICAgICAgICAgICAgICAgICAgIC AgICAgICAgICAgICAgICAgICAgICAgICAgICAgICAgICAgICAgICAgICAgICAgICAgICAgICAgICAgIC AgICAgICAgICAgDQogICAgICAgICAgICAgICAgICAg ICAgICAgICAgICAgICAgICAgICAgICAgICAgICAgICAgICAgICAgICAgICAgICAgICAgICAgICAgICAg ICAgICAgICAgICAgICAgICAgICAgDQogICAgICAgICAgICAgICAgICAgICAgICAgICAgICAgICAgICAg ICAgICAgICAgICAgICAgICAgICAgICAgICAgICAgIC AgICAgICAgICAgICAgICAgICAgICAgICAgICAgICAgDQogICAgICAgICAgICAgICAgICAgICAgICAgIC AgICAgICAgICAgICAgICAgICAgICAgICAgICAgICAgICAgICAgICAgICAgICAgICAgICAgICAgICAgIC AgICAgICAgICAgICAgDQogICAgICAgICAgICAgICAg ICAgICAgICAgICAgICAgICAgICAgICAgICAgICAgICAgICAgICAgICAgICAgICAgICAgICAgICAgICAg ICAgICAgICAgICAgICAgICAgICAgICAgDQogICAgICAgICAgICAgICAgICAgICAgICAgICAgICAgICAg ICAgICAgICAgICAgICAgICAgICAgICAgICAgICAgIC AgICAgICAgICAgICAgICAgICAgICAgICAgICAgICAgICAgDQogICAgICAgICAgICAgICAgICAgICAgIC AgICAgICAgICAgICAgICAgICAgICAgICAgICAgICAgICAgICAgICAgICAgICAgICAgICAgICAgICAgIC FvRTNuNZEcIXHlUNEtDEAnLIo6O4glYAFwIUFeDI3k NJb2Fl1+MAcDKsQdKAZ8myFmxI4MLR2qu3IwMZndIBRbr9PcZFv1SL2NXVKyODjwIB6VDReoin0IHRQk XXDfuADTm1ezLnRwUDV9JPXeJhgnRQ4TZXLaX5pvmdWhPCJfMPYSXOplYOFXEEozKXBEWKRuWLAoMrVx QsWcZMZtECAwAYLLRYY4ZQVfRkWcYIxnAF1Xf1UvhJ A3DQo+Dm5QUS7xx4ZiGWj6HjQcTZ2bwf1WIWbAQlAaW1XomkF3BML7HADcJa5JECBlTPMcwQM2RUVpAT UTDpYkZ4EreZ86RUVAJs9+UKdbmnSrHmoWYwI4GHGrz4LgJXs8AK4BQCOoFOy5tLUeRFKnF1May7ZpTt 12ARTuAlabQ7DdML81mBCnJAIujrAbecsve3IpGL8I FJA9XNdvDQBhCkAkVKXqNZoxWLMOEHyECeAuC6Pkt6WpRzI2SOLjEgWzIAiuRLYxLbC4KP91gEepVN7A ASKhKORrXA72GXXhBQOcBr5MHu2XCmRcPJ5jig4NOBLcJQQrKvqLTbl8QSuzPQ4ElDGuM8AjrENxd6mZ NxLwL2IWAGCfXCTvAg4DBQNpDjDeMKCgPDqeQL4rEO EtCLZStKoccxI5AF0ARU9tnbWpJQ9PWeGzMh2zLn7DTuEmI6RgQ5OtBLOyCZVFRWekXZ7YLGqsFV0xTJ 0Ns3MSbDBdwP1eah3SYXEjDMIyGsvtgv0KUieiY6I7pFaxYVFnRUWlDHMMYNcgBY0OSYHsAVH8JGY5Ju CvAADCKjGyK02pXJ6DV9Wld32bTzP2WMXaFjIaPLul DW21hWdlwuBnqDVbhDeaQF0EEy7+FYkhosXkOboPYuueODJDYtAwSGNEMeFrPVScDQDeOVWyKnE3XwMs Ct1DUXWiBJJhBAAuEmYjBVGgIYZiXUpuZFRpMQQ9LKW7RBHrDQVqYQ2XWlBrCVLcGex4VcTlLBCqRAKb mu5WOXIzGXKoENL3MoRbXCUrCVKiMEtuGSWpBYFuIG EzTJZwLAZbCT7JDzAgKFHbUVJ8NvKyCHWnGJIzeu9UNOUjBVQmMAstLWMpXKSmBFSbRGuxOYYmULV6YK VyAAHpXWFgWT8SGsQwNNBhSKv7VYvjMFGjCZYddg3IITZxKPHpXHNhTVUvCRKoMYWwWKwyEQByBIZ3MD K5OITcKCIaQJ3ODlEnRJIoWMEcObUzHUKxRONpqk1X SYPpCZHjTDazIWKrYDKcJJZzNVjjTFCeKDSiXTGaWAIwIFGcVQ6OPqUjGGAsIPC8OWFoLWFsTBYstq9H PCCiKVXbZYE3TXGpYXHbZOBmIBnkNVAaWKG3UYK0BJGmZTNjKI8TTcIjYAAkNSZ6RUAhNBKxLJUdfu6E EYDbVPDrKnK2LZUaPOCaHDYdTFicSWVjZCR1Xlq6TX EeEVIvLM2UKfXgSVJfQAW0VdDmBJDvCKPndh6YYRAyYGFtCpmnXKQsDJTpNQKjIXutZKLxJKS0RONwFX RwYSOkVL1GAeGzHTBlGPclTAUuEVLkWVSrft0SYIKwXQVcXKR4JwXjXNDqFWMsUCkjTCCzMLJ2LCJjVO AhIJBgGL9UUzMpBXLgUMl4ZLwySLSxGGSiap7HOYJa UGEqDZXfNdToZAEuOZZuYSynHODyOKItIHS5ELXpCNMgSP2GFtQnYCRpXkCpZLMbOYJbUKGdtl3BYDYw QGAiBDz1JfYpUKXpIBNdXKxtOQOlNSKcZESvZFAqYGGeTM8KNuClIQEdYwKuUZnlEUFyMLQtkz2ZBXQi KLHpNYO1GFIwUIIcFYLpCDvfFPApGSV1WCa3MUDiBS GkYR0ANxSwJVSaMeZfGBFeBEJmLKZaek9UQUMaNOJeBpR8ItEnYJAhRBPxIBhhXOEpOTL2WZreXRQaEZ BlLD2NYeKzHYTbYhq1GtYsJXLiKNNmpn0IDSRiYORkIzopGtUnPHMdOUAqVVrlJOOmYCE6IUV3DOAvFV GsQL0IDuOtIWAvRnghBFQkAYCpVCHfzv8EHDIpRVQn GJw3ANNgBPZmAWJgVBqpGAGdALC2QSPjGLEbFTRqNC3HYwMpBITxSRTfJRUkJLXqUPFqus6HrHHqiZmg qa4SUNdEUm5PlIsjITB7HXhxKe0ryUK0CSWcBAICGw0KhmMjCSEwNGKQUXlhOBWcKDy1ZMHkIav3C6Tk CsExDlM7DWWoMNMjJRDiOKU5PxPnOgJ1BQC6GOPbZB j6HdWzWWW1KJz8ZNCvKNM4B1U7KxddJ9U+TG5dJOt+Kn5Ph8VhysN0iqXyQPk5TJNkAQ5RJAEAK1PNDn == ID Date Data Source [id number] 03/24/2021 06:29:29 PM EDT [facility] Name Value Range Interpretation Code Description Data Arabella rce(s) Supporting Document(s) Nursing Note [facility] IWRHKh3lEgOOTfRy07/ZTGlmRDGtl4FgMGybOTv2SDrcEHSjJ2JcTBX4iV5mKXT8FEqEPcRzEkLcYNH6 lbm [file] Q6BEC8BCPvIUIfMeMdDI5DNt0CXfF9COU5gWSaNv5SSfCiCUZPQqNrDY6XJCq= ID Date Data Source [id number] 03/24/2021 04:19:00 PM EDT [facility] Patient: SIENNA FOSTER Observation [facility] [place].VisitID: [id number] [place] [address] [phone], FRegistration Date/Time: 03/22/2021 13:25 Weight:72.1 kg (S). Height/Length:68 inches (S). BMI:24.2 PAST HISTORYMedications:Carafate Oral (Tablet 1 gm) 1 tablet, 4x a day, last dose today .Effexor XR Oral (Capsule Extended Release 24 Hour 150 mg) 1 capsule, daily, last dose 3 days ago .Gabapentin Oral (Tablet 600 mg) 2 tablets, 3x a day, last dose 3 days ago.Iron Oral unknown , daily, last dose wednesday .Mult ivitamin Oral 1 tab, daily, last dose 3 days.Protonix Oral 40 mg, 2x a day, last dose last night .Remeron Oral (Tablet 15 mg) 1 tablet, daily at bedtime, last dose 3 days ago .Rexulti Oral (Tablet 0.25 mg) 1 tablet, daily at bedtime, last dose 3 days ago .Synthroid Oral (Tablet 125 mcg) 1 tablet, daily, last dose 3 days ago .Wellbutrin Oral.Zofran Oral 4mg (ODT), as needed, before meals, last dose today . Allergies:Amitriptyline.(hives) (suicidal thoughts)Bees.(Anaphylaxis)Maxalt.(Anaphylaxis) (coma)Seasonal. FAMILY HISTORYMother: Cancer, Diabetes Mellitus, Hypertension. (Elect ronically signed by Willie Diaz P.A. 03/23/2021 18:22) Weight:72.1 kg (S). Height/Length:68 inches (S). 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 Additional Surgeries:Appendectomy.Back Surgery. (T12- S1 FUSION)Cholecystectomy.. (X2)Gastric bypass revision in March 2017 for an ulcer.Gastric Resection [2012]. (Justyna- en y)Gastric surgery. (Pt reports she had a hole in her stomach and was repaired in jun 2016, 4 louisa are still in place)Hysterectomy. (Ovaries still in place)Knee Surgery. (Left). Medications:Carafate Oral (Tablet 1 gm) 1 tablet, 4x a day, last dose today .Effexor XR Oral (Capsule Extended Release 24 Hour 150 mg) 1 capsule, daily, last dose 3 days ago .Gabapentin Oral (Tablet 600 mg) 2 tablets, 3x a day, last dose 3 days ago.Iron Oral unknown , daily, last dose wednesday .Multivitamin Oral 1 tab, daily, last dose 3 days.Protonix Oral 40 mg, 2x a day, last dose last night .Remeron Oral (Tablet 15 mg) 1 tablet, daily at bedtime, last dose 3 days ago .Rexulti Oral (Tablet 0.25 mg) 1 tablet, daily at bedtime, last dose 3 days ago .Synthroid Oral (Tablet 125 mcg) 1 tablet, daily, last dose 3 days ago .Wellbutrin Oral.Zofran Oral 4mg (ODT), as needed, before meals, last dose today . Allergies:Amitriptyline.(hives) (suicidal thoughts)Bees.(Anaphylaxis)Maxalt.(Anaphylaxis) (coma)Seasonal. (Electronically signed by Minh De La Fuente 03/23/2021 18:51) Name Value Range Interpretation Code Description Data Arabella rce(s) Supporting Document(s) ID Date Data Source [id number] 03/24/2021 04:11:33 PM EDT [facility] Name Value Range Interpretation Code Description Data Arabella rce(s) Supporting Document(s) Progress Notes [facility] IJHMHy8eNeCXMaYu01/OAFtgLSUlm5QjEZloTPi3SQuqXBDuL3KqNET9jO6rWHE2EFxRZiKsKaSeFFP7 lbm [file] BmHcBI2KKTe= ID Date Data Source [id number] 03/24/2021 02:38:34 PM EDT [facility] Name Value Range Interpretation Code Description Data Arabella rce(s) Supporting Document(s) Progress Notes [facility] IYKNPd8mGpVBTxRz30/WHRfsXOLso2KmAXxiHWs9CLwlHBNuC3UxFMQ7wH4wZKJ6AEbOMaNqUxHhKBI3 lbm [file] OtfL9QG2GDRDpVGAKQTj2SQJUcX84NVRDZ+9LtES37 CSK9MW0P+jUylLeLJeLdKGihMLU8iL+9oA0QxfVOtZdCKkiztHrwX+yHWwJFHbRSV+UqW+aeBT4A/oP6 edFJO23QzrX1/o/zIP7SUSB6n3t/qYC1OMncSEzS0GlhT0r/CC5lkTe30oVgOouWcJDL1pI92jG6BPeL goVNG8Su9wLUZEazI/uceBrtOgT/p5P1LT38AKOg7v pWwzawv+sI+W7b8o+UJy1win+NpsxJxC0g97gXK3R84Uc+gZimh61T28lebT0M7IMZUcTntgjV/xLUec /4Vb6Qj7DmKRHqGdAj9cBBwqOK6b7ijVb1YhyAlJT6S0/Asc7lWp18R7n+klP9bK3UDXmkfNr3AQlVxO SW5pUptjCX8aGbaWfX9oFBb11Hi72tqn+kPgUcwXpp kXqLM3yjJgJrv348ze8oHYP2Mp9QZIAfZvDQ97YS6b70kk+h+2Xl87FiAb1l8zmkzxAxG9CfYXL2juI9 j+z+6qidAr/I9Xq3EAOvk7Kg9VgefW9W0eQvoQQ+UWrM4Vx+M+ZeDqeT7gBjjipapZX9pZ0BvzpKB6mW qxncw+keYKHLRSmuluJvqMxVkyhfnDHafxtLnDuuQ9 0gyq76X9/Ph+/mOvHlpHh2z9W7kPRfeRIrSAo1HJjaUA8sO/99kIZnZ+G7BfIOSREIU70k05DMCaR9IC byHfkcPxpWi2CxhYpiRpNEHwVbBBUt8DN8dLu7x+g7Hq3otnP5Mv3yDiQp8JGKshvQzEaf4Pc60rhHQH phMqt33BUOOW6n5NyqE5adm/p7tRicMI087MELFC26 QfJAuSiFx0dDofnkNCJ6uVpqG+r4R8BA2sgO+yTdJYsl3fn9qZOJ9JVHQ/C9/hIaLFWSLv+k8jpj6UAS wf9B606p1sfhLnnr+TbkOSXSGQt3m1I9qf0lse+lDrD/xkjNzI/3Z7XQEhFjlzxTI9s64wcKmVbEjCvQ vuIpScv5UrG28Ojk9CgLT97cllYnb3z17+JdnrYH+7 jICW2eHtvEff2tEHZHBbm9O0x4pG/4ByAt/y2bH+EzEZ01lV392nR21WEAeA/dX02XsxPgjnwN83aR99 9OGaBsp1RanYkQj61Ol0x+X0tyghcmhab6hU5fnXA9hBfRdUdzOtstTgABdTYd3p//uwiSW0Tm26Rog/ +pe74Eahx8FKBel+9mngEWdhE5IHOymTaOIkeal7/v BIm//1YQXLy8KuTv8YPD5A0pC62LWxU3olU2IU8FBpvZVxBxJm1Px1iAZq6apKfrDY8NPeJa2dA/A/gm/svp global publisher business Lfva30U/KX17qLcDhMspbWwFLji3hBKWGyO5M08/PYjytO4IoyVTEO9ZW0irA9JkpGR8c349w0qHg6fM XxnWuhx+y0Q9khoPkoLqk085m5LKL9wOvQ5Qn3WSC9 ifNoDPNOIkUU85qJUQ0csbtN0yGlqVxxgG76flZrJxmFUCQ0N/uy0K+9yIMVdvaF51LmL/JXeRHip6Bu YlOvRqg51cj9a29Ll6fl5TX5oeHNHYjw4bdMroaq31S0raZv/eY6ozQ6wArrSzuHczIPE6xRXSpFpXWB 2oIwbCbkRBeJxd55/kQViL4z9Hi1HE48vCoyC4BPuB sZy5i6lDlSe3uT/kSeoWAcBlCz2CrYJgnudUct2pBVVmz7mMsyLoB6s3xbM6DOwthKpEJNuobOx3aM9U F5slm1tX3Kkz35LMNEiJZy2yLZve1u6eNaOlJx2zvbu9juyglNcOmzz6UL6khPn5wEHY75s8LCokAi1h TjblRZfSJESkp1bnCfVOUL/ZeiGoIkMfcJqvq7KArb 9DxnsCRkw+wpPcVshgg/ILGTXmF+tPiVDgLreGUg8Bn7eDhZ4ef8K29cKfhYnGzfZQnjcKtVZnHFB/YV ERJgA5mUyNNSj6oTpUGJA0MhXxhYPC1JfESpmEll+pvlT9mf4NCktUACgZVXqEekq0B/t1oWVfAA6LI7 gEGtN9EWLPwxw+YYVVjaIGJA+TQMWCFhRYOwNTQM06 [file] ICAgICAgICAgICAgICAgICAgICAgICAgICAgICAgICAgICAgICAgICAgICAgICAgICAgICAgICAgICAg ICAgICAgICAgICAgICAgICANCiAgICAgICAgICAgICAgICAgICAgICAgICAgICAgICAgICAgICAgICAg ICAgICAgICAgICAgICAgICAgICAgICAgICAgICAgIC AgICAgICAgICAgICAgICAgICAgICAgICAgICANCiAgICAgICAgICAgICAgICAgICAgICAgICAgICAgIC AgICAgICAgICAgICAgICAgICAgICAgICAgICAgICAgICAgICAgICAgICAgICAgICAgICAgICAgICAgIC AgICAgICAgICANCiAgICAgICAgICAgICAgICAgICAg ICAgICAgICAgICAgICAgICAgICAgICAgICAgICAgICAgICAgICAgICAgICAgICAgICAgICAgICAgICAg ICAgICAgICAgICAgICAgICAgICANCiAgICAgICAgICAgICAgICAgICAgICAgICAgICAgICAgICAgICAg ICAgICAgICAgICAgICAgICAgICAgICAgICAgICAgIC AgICAgICAgICAgICAgICAgICAgICAgICAgICAgICANCiAgICAgICAgICAgICAgICAgICAgICAgICAgIC AgICAgICAgICAgICAgICAgICAgICAgICAgICAgICAgICAgICAgICAgICAgICAgICAgICAgICAgICAgIC AgICAgICAgICAgICANCiAgICAgICAgICAgICAgICAg ICAgICAgICAgICAgICAgICAgICAgICAgICAgICAgICAgICAgICAgICAgICAgICAgICAgICAgICAgICAg ICAgICAgICAgICAgICAgICAgICAgICANCiAgICAgICAgICAgICAgICAgICAgICAgICAgICAgICAgICAg ICAgICAgICAgICAgICAgICAgICAgICAgICAgICAgIC AgICAgICAgICAgICAgICAgICAgICAgICAgICAgICAgICANCiAgICAgICAgICAgICAgICAgICAgICAgIC AgICAgICAgICAgICAgICAgICAgICAgICAgICAgICAgICAgICAgICAgICAgICAgICAgICAgICAgICAgIC AgICAgICAgICAgICAgICANCiAgICAgICAgICAgICAg ICAgICAgICAgICAgICAgICAgICAgICAgICAgICAgICAgICAgICAgICAgICAgICAgICAgICAgICAgICAg ICAgICAgICAgICAgICAgICAgICAgICAgICANCjw/oFSwT0mnhJMmjfS2I3tcTb6IYl6VNW7pr1GaAWNk MJjlabCvChqTWmKnQPVsWpbXUok7SJzvYK9HbDIdX6 XsT5SqFIteEN3MHEYkLEKppTGzQEJgJQHqUzI9QIRrMKmoGH1WrKJfBGdcKNAyVZFpKpIiPADqDXWjSB ArNZFyRFFENE1KErXrF4GhyA70ENEPFs2+FCuqjaIoVhcFRcR3WRKvd1JnPHu9WH4VNBGjIpebv0UuVL EaBOFBETfxYN9GWLF9VGW6GSJkEz7BUQVrZ957tmRy KC0JQt9QOvLtPB8vbk8JXOKcVFQoKhlQWmf1BJfcZJ1JuRAyXJoAgp4vugGcnwMRy5ClqlBruOMOubnh CX1lH2UefVr5BVUNKCMKVI3fCBLqMC7eDq1yMQBjRWMmCzD0JCMXUU1JAENwLNEvpGItCTNiGBHQJW2B NDfcYTL0WyjpyuGcbHBlEVwbFQ6AOIPohkEcYPJkPQ BSDQo+Im3ZCU6zr9HlOIa9IlRcKI1bfv5QJZzCYuIsM9G2ySPbQ4W1QFdhXo2RRSFeSFHpNVJdEECIIL neIC6TJY1mwuI8VS4TpODxJIFqZHSriWJbEQs4R89cnALaQUlwXE0AHOZ+Mau+Hu2PGVUzFPCmWQJqYp PxXUADBrSvK0TcO1KZy5SwH8LcKA03oSqzkjYpWNhn NO8YFL5oUONeBYHGXL4ZeCFvyA5jrcA6NQUyKCYQTlTaW70pcCEtHULlCIGcYDPuQw8XWXVmL9NtwhOi lOrykxMxJQWcSKTMYU9VICewswGxtGUzcVerLN80rXcpGI7MBr0XGcFvQD7qqd1SmRFvNv3NDVR3Xa5O SNGwMSMtVOHuDBV3DUVkIdQmWGndLYHoOAEgKOX0JW JqACXrCU2EGcIxIFKjVMd9WSJeVFTcSPUnul8HCUYbLEE5ZWP2IQVuNNKyYTWpNGzbSXOySLKlIPI5HS YkOWRrSH1MDhScALYhYUI3RLyxGGCiUOEzbb6TFOKcWCLiFtZcNaOaRLVzSGDoSDmhUIOjYFE8XpZ2EE GiANZjPF8RXiKkFVKbYLL7JliiDNEqDWVhhw7APZFq UAFwSXLhYCRyJBGgFOCxJHbpRTUnPUV9DkN6RCDySOGoYH3WCdMtXBAvIRs7IwJxCLJwPWSjry4VNETx XTGkMXopDHBcVVEvQCWiVEwdCWQrHQClFEw1MOSdKBLpOS0YXiOnUNYyQUHyVIucNZVxGNXgqi6TVVDr ZXZkPYJ7AeLtEULkOTGlCXrgEQDkKOGhXhO3EMJeZY QrNZ8BOkDxROZhMBR6JpXiQVCbIAGuxj0PQOPwNBKzQmAcQgIiUGYaSYGiABuvQETjMXQ4IPT1HSQoYO YeAH3FNdEuFQYuFsGeTIVvKBPySMXhyj6PKQBrGKGxQQR4ZNLvYKFqHQAdQSdpDFBqHLZ7LvSpFKSiXM PzWT5UYwYiPLNmEoV3TnguZJEiUBXjea2XIDHcCUPm WtehLBPnBSHqOMNnQZpgYMYlWFF6UTNrGTIcKJPgOS9QDfExUCExFgqtLMxsREKmDUGrar7QKJKqQDGv SPVcQRTmOZNbTSWuMSzwTNQiWDC4HbB9RCVsBBOmAQ0RWjJkXLAkAbo1SJbcNCTiQQHkbi1VMGNuUXF2 SWizWWZbSKJrHRMdSUllTFFbFPErASK3LVZkMDArXO 8MJnYsQAIrFOJjXZQqDOTeAYJkqp2QGRZqQVE8WbD2IAQrFPNuTKLwWFwdCFRjXJWiShCxCTOkAWLgES 0JUuXtWMMmMTT8AtFyJLIxZCScbx0DLHWfARU6Ksu3CnFxWTDpVSLwGFeqEBOcEGM1TXZ0GRTvGKWvLN 2UMeRuYDCzLBo4HQNxATDyKNTkmx5XRMUpYEV4VPCq TGNmOKMnSCQeLUexWQNbFID0TROvKCXiILWzSQ9MFgCeMEJmBPx2HuWfCAFjYIElhs4FSFKySIZ2JTqx CLRcQJDiPOQgHQkeTUTrSKVnQyOrUSZnMYSaWC1JNcNyDRMfQAM3MSjaNENsOPPbjc1MQRDrPPL6IOre IDAdNTLvENNmMJaaAZHaBRAuJHvrJZXrPASmFT1YZr HzXSrhYJBAJgz0YWydA2j6HIS6Xh1OA4Upe5IqUOIcEWMMKNucFP0wacEoBTPsCm9RO3zSEdsbKvXzLX M8NCYgNYG2JvPpREH1DQC8G7WmBCDhVdD4Qz4fVNP8QxZ6WbPoZBE0IbbyYBK9CWKuKmslVPG8TSEzCR OsYuEcCB4AQc2VUtR5XLQ5hWKwPj7HDFGfPrPAXpIaBW2JJAa= ID Date Data Source [id number] 03/24/2021 02:35:53 PM EDT [facility] Name Value Range Interpretation Code Description Data Arabella rce(s) Supporting Document(s) Consults [facility] SZTXLp6uZcRKTuUn11/BBTiyPQDcd0ReWRzhSUl2DZnjAOBtD7EsQXU1wQ6zSZG1QXiPCvXpKaQrIZR4 lbm [file] AgICAgICAgICAgICAgICAgICAgICAgICAgICAgICAg ICAgICAgICAgICAgICAgICAgICAgICAgICAgICAgICAgICAgICAgICAgICAgICAgICAgICAgICAgICAg ICAgICAgICANCiAgICAgICAgICAgICAgICAgICAgICAgICAgICAgICAgICAgICAgICAgICAgICAgICAg ICAgICAgICAgICAgICAgICAgICAgICAgICAgICAgIC AgICAgICAgICAgICAgICAgICANCiAgICAgICAgICAgICAgICAgICAgICAgICAgICAgICAgICAgICAgIC AgICAgICAgICAgICAgICAgICAgICAgICAgICAgICAgICAgICAgICAgICAgICAgICAgICAgICAgICAgIC ANCiAgICAgICAgICAgICAgICAgICAgICAgICAgICAg ICAgICAgICAgICAgICAgICAgICAgICAgICAgICAgICAgICAgICAgICAgICAgICAgICAgICAgICAgICAg ICAgICAgICAgICANCiAgICAgICAgICAgICAgICAgICAgICAgICAgICAgICAgICAgICAgICAgICAgICAg ICAgICAgICAgICAgICAgICAgICAgICAgICAgICAgIC AgICAgICAgICAgICAgICAgICAgICANCiAgICAgICAgICAgICAgICAgICAgICAgICAgICAgICAgICAgIC AgICAgICAgICAgICAgICAgICAgICAgICAgICAgICAgICAgICAgICAgICAgICAgICAgICAgICAgICAgIC AgICANCiAgICAgICAgICAgICAgICAgICAgICAgICAg ICAgICAgICAgICAgICAgICAgICAgICAgICAgICAgICAgICAgICAgICAgICAgICAgICAgICAgICAgICAg ICAgICAgICAgICAgICANCiAgICAgICAgICAgICAgICAgICAgICAgICAgICAgICAgICAgICAgICAgICAg ICAgICAgICAgICAgICAgICAgICAgICAgICAgICAgIC AgICAgICAgICAgICAgICAgICAgICAgICANCiAgICAgICAgICAgICAgICAgICAgICAgICAgICAgICAgIC AgICAgICAgICAgICAgICAgICAgICAgICAgICAgICAgICAgICAgICAgICAgICAgICAgICAgICAgICAgIC AgICAgICANCiAgICAgICAgICAgICAgICAgICAgICAg ICAgICAgICAgICAgICAgICAgICAgICAgICAgICAgICAgICAgICAgICAgICAgICAgICAgICAgICAgICAg ICAgICAgICAgICAgICAgICANCjw/kAZsR6flmZHoevF1Q7drNl6TGv3JPV3va1QgQMItYOvbezUcEsbN RlUkGXMiPufFMan9GMavOB4PdUIcW5WvS9QoRAdwXB 1NIBYyDQAtlQOtYDKxQUKeAwM4PSZyMGxfWJ9TyEBiSGidQYEwRIBzKzWkLIWzBKDpQPTvHZKvVIDSSR HhKQNyZtAlFRVkRCZcKPdgNHWHZXS7CCDoBwVfFBoyAA6Us6VoxOC9MSt+Ly9YZO1sg5IaNXa9YgSsEI 1gew1AXHaWSqJnD7CyvcX9WKVkCGJuTp3COQFvIJNa uCA8XmEmYDRPFsPhS4QbyC90YZEUNc5+PAyhvxSgUhmVKbOvRHVbv3OmBXj6XA9QCLOgKDp5eGEkB41m o2XslGGrCpznQ2vemQiwrADHHUbvEHKduftrPFQmHUWqSY2pPe3kQAFnPZPrByOpXLNSTD7ULUWnSRBp cTWkQVQaNCCYXK8TWIokUYA5AtooapYfhJPfQYzxSK 9QYXJlbnQgNDIgMCBSDQo+Qi4DZN2mg3MvWFd6VYBrWC3mei0KTLtRAzTwP9D2fJIeB0H6ZUibMi4JZM EnHHUjNPYqFAUZRDpmTC7GLR0tyoO5IM3FnBFrTUDpGLXufHIkZTa3F56vvJQpIOjdSY3XXQK+Mau+Pg 8AWJByYCFkMNMfFcCmIZKEDiPjF5VvC3ADa1JgM6Ok BG42jRxjeuDkNTntWW3OJZ3cRHIcXOFRVC4HuQTdjP3krmS4OvFaYZNETuJoV93hbMIxAPPkQWAkKGMn Ub7OMMNqF0LhzhXnoPsfvhJlPBUuEYTTFH6ZRLmafpSswHOehXviCO93mDkxJA9RRc3HDsFbID5plo2F gDOfNe7DTDU0CB6AXERlMJBkLSPaIQV8GSVbCtVeHD aiWKFzRZKiMVP5LBPlFWReFH0YDnUkYZQwHccyRRwmGXAlUFRykt0PKLZsOMK5NTXaOkQfSAOuAZCzIS wpYFHhHURkCIS5WCDyCQUtFM2ZNsEjDJTdMTEvIrZkIWAsUONimd5AYMPeUKZpOcS5LZGcXMZnBIZxQV kkZGNkVTU7ZzwcULNdYNVrPV4EUoPmAYLoTCR9CBXv GWQfIDGgkq6MYKCpSWBrVUB0OfYbAUJmVINhUYvdLAObQNB3PKd9STGwYCJdHZ0ZKeNsMXPxEME1TUvc AUCkKCZoob0JMFKxTWUmZTD3GMDpPRXgWTQoNDdjMNXqDNNqSLN1IKTiZKLiDX5QWcMnDMFpFWL7DOJq TQYlKONodx9IBVOuMBDpYHM4WTEpOJJhIWRhZNetOI SvNHX6VMu5PQAmWTMnDN8JTrAyJFPwMYooQOJrZGHdFUWhxh3FPUYaPVSjRcS7KDBkOKYrVPGfPCyuFY GnILW2EMC0PFPlLMLlHM7DQbTgZQLjWMhkGvHzQBEeSLXuln0MAKRqAODhJDXfJJLdXXWeWXPlHYcaFW AoGMU7PAAqSUOuGBNyMH4LLvHxYPSwMAn1KKYgDQJb RPDqxx1BOGLrRIVbTTX8PPPuPDEhLWQqKSpyQLLuEVWaXcS4CHJsKUIdVK8HXeCdXRNpXoL1SZLzYGMc CCUcnf3KAHZnDTAvBCttCUZoQMJsADLgUMfeMKNbENLsTLU0DMToVKJzOT8SKcFhZMTfAgZlMCMsKCLr AQCzja9QEYRvHNItXmJ8TKOpBZUwWBFyKNgfTNRnLP BeNDD9EGFuIWQzBU8AErPtZOYiSqA8MGXtXPTdVDNyaf6PQAMdBPZoGSGoXPUrWVSoBOXwJCqcYULoHL W7HSL0OUYfIWObOB7MUbCkMORkPcY1XAAlNHEcEYPorm3BRMVbUMQhRVFwMPVlGUXzSZOtFAznIUAgDD M0HbM3OADeCRKjED2KWnUiDMDiRzc4IGbkOJMjKPVq yy5DENWxLNVnHAK9CILnFZZcGQEiHEppGPDfXPW1RiO8MNDqDNAcJG0DNyWdQMFfLma5VGToXTRrYJAd co0VFHBfLNS8AYX3FARcWNGsPQSnKEhsWMXyTUMyStXmGIOzDEJcSE0QKlDaAKErFSZmOBrfOPJqUKDb co1YlOVccHnynx8BHMnPTi4GtHuiIIM8OUloWh9rqF F1CKAaVMHFJq9JdaNeJUYxXVZDBGewKHTeWQeoCEIdDWP1JGWtWCHjURJ3SHP3QDEtAbLzDKMyZsD2Jf H8N6C8OjBoCXCsPjQ1BfU2CieoBiq9DcI4XoIwQsByApO+WK2xJDc+Lx8Ur5IosrA3ohUoIYv8IOIgIQ 7WNUDVG0SIZg== ID Date Data Source [id number] 03/24/2021 02:16:15 PM EDT [facility] Name Value Range Interpretation Code Description Data Arabella rce(s) Supporting Document(s) Care Plan [facility] DSQCHt7gGxAIRfIk95/KBExdKXGkx4UiOVpnDQy2TSwdOKJfF1RqRRB2pL5lXPD8OCiCGaFnTuXuDPY3 lbm [file] Cj4+NQiscHZeiJefLKIKKjCgFYQ2UZtfGDXOUj4Q ID Date Data Source [id number] 03/24/2021 01:20:24 PM EDT [facility] Name Value Range Interpretation Code Description Data Arabella rce(s) Supporting Document(s) Consults [facility] UDROYj5kMiJEDrQw63/EBFvkYWFue3JrTZhlOLa9ZSigELWuY2OyREV5jX9gRUO0PFvCEiIcXpLtULL6 lbm [file] Q1PAFMZgMiQJ0EUVb= ID Date Data Source [id number] 03/24/2021 12:26:04 PM EDT [facility] Name Value Range Interpretation Code Description Data Arabella rce(s) Supporting Document(s) Progress Notes [facility] AICTMk8eGhGOHpVl76/KYSltQBHnu6OlLIsaRUs4BBlsYZDfV0UvABW7kX2fOWM2SNbOOtHxZdWnELM2 lbm [file] OjLXM3H9QuGKQ1ZcQ9XQLtPsTgBM6WEf0UZcP7UIB7wTLhYc4TYkB7XMLFVgZkNT7AMRa= ID Date Data Source [id number] 03/24/2021 12:13:35 PM EDT [facility] Name Value Range Interpretation Code Description Data Arabella rce(s) Supporting Document(s) Progress Notes [facility] WVMUZj2sFeHGUfCn85/UIPioDEOtg8GdPNzhYBv7HBjjEMKpI5BzOOR0dZ2bBJV1NLmFGqNjXcWvMKS7 lbm [file] 0K ID Date Data Source [id number] 03/24/2021 05:26:27 AM EDT [facility] Name Value Range Interpretation Code Description Data Arabella rce(s) Supporting Document(s) Nursing Note [facility] LVURDa9xZsPYOdGs48/APRiyKCJrt5WmJRxcZZk1LUnqZPLgU1ChKJK9uZ9pKUP6EAxAVlKnIdOuELC3 lbm [file] ICAgICAgICAgICAgICAgICAgICAgICAgICAgICAgICAgICAgICAgICAgICAgICAgICAgICAgICAgICAg ICAgICAgICAgICAgDQogICAgICAgICAgICAgICAgIC AgICAgICAgICAgICAgICAgICAgICAgICAgICAgICAgICAgICAgICAgICAgICAgICAgICAgICAgICAgIC AgICAgICAgICAgICAgICAgICAgICAgDQogICAgICAgICAgICAgICAgICAgICAgICAgICAgICAgICAgIC AgICAgICAgICAgICAgICAgICAgICAgICAgICAgICAg ICAgICAgICAgICAgICAgICAgICAgICAgICAgICAgICAgDQogICAgICAgICAgICAgICAgICAgICAgICAg ICAgICAgICAgICAgICAgICAgICAgICAgICAgICAgICAgICAgICAgICAgICAgICAgICAgICAgICAgICAg ICAgICAgICAgICAgICAgDQogICAgICAgICAgICAgIC AgICAgICAgICAgICAgICAgICAgICAgICAgICAgICAgICAgICAgICAgICAgICAgICAgICAgICAgICAgIC AgICAgICAgICAgICAgICAgICAgICAgICAgDQogICAgICAgICAgICAgICAgICAgICAgICAgICAgICAgIC AgICAgICAgICAgICAgICAgICAgICAgICAgICAgICAg ICAgICAgICAgICAgICAgICAgICAgICAgICAgICAgICAgICAgDQogICAgICAgICAgICAgICAgICAgICAg ICAgICAgICAgICAgICAgICAgICAgICAgICAgICAgICAgICAgICAgICAgICAgICAgICAgICAgICAgICAg ICAgICAgICAgICAgICAgICAgDQogICAgICAgICAgIC AgICAgICAgICAgICAgICAgICAgICAgICAgICAgICAgICAgICAgICAgICAgICAgICAgICAgICAgICAgIC AgICAgICAgICAgICAgICAgICAgICAgICAgICAgDQogICAgICAgICAgICAgICAgICAgICAgICAgICAgIC AgICAgICAgICAgICAgICAgICAgICAgICAgICAgICAg ICAgICAgICAgICAgICAgICAgICAgICAgICAgICAgICAgICAgICAgDQogICAgICAgICAgICAgICAgICAg ICAgICAgICAgICAgICAgICAgICAgICAgICAgICAgICAgICAgICAgICAgICAgICAgICAgICAgICAgICAg IYPtOSClDBFmWCYhWYJhSETbDTRdWGp8C8guNWKwMV OiAY0gNWr3Ud2+KPzNBfVdQPB2yrYpgQ6MLH4gn4LlTJmcOAObv8TmFKe8VG9OTYGoBAopDV0AZAnaer 9YXTHbGSEdjABUo5zhJfKpEYB8WUBpShtkTL9OJRWeW7aqfwBqWOZuFJJXZC5IDbMgG9OroZ39ZXNQBo 4+ZDesrsCqXufGQyIrOWGjc2CdKTu9IQ0WHJMzUhne w6ZyJvDzBIPNMMfxJQ5KNKC5DEOtXCCjCg0DGQBdT921yiNaGQ2BMd6GKbQxHO6cxt0VSqFvTGDoGnnQ Cas7AVxuGN6KoAPkDYmTaRWbuE6tQK2muDVhVgtyNEM9eYMcVKSXLYEzZuW0YCQINeRcoSS8BrW9IoTn KgQjVFB9EiWcIQ8nKBndGH4KZNP0BQglGUHuRAJvM5 sTZwElOSokJZMhtDkaXW2WByFaE3YwyhXfgNDpDeKeCXRBZv8+YWbbkiOyFckOAfY2QDQgk7MwOAf4WZ 1YDUHxSXnyQA3ZCQPavS6lLEsmCU2MMkIyFXTwJPDTKcKsR17vgSNdFOs7G1MmKiLwKSNxLcuyPGOcFL wvTmFtZXMgWyBdDQogID4+ID4+HVgtEV3JONxwioZg VGGcNy6RQUZhEGOzYB0bAXGoQLPhC7P6zMtaMQSXYcDuI9qffyeqIL1kBOVgY653bCronsAfKTKoGJUv Qs7NUOTmQNK9YCSkqRZeVfQpYBGMBCjaAH5JmMBsOJN1iG6lMYhpMHWsYIMmE9oNPaHfdAjhJY67xIdt bnVsbCBdDQo+Ba7AXG6oh9HqQOe0huKhYKhfQRL1HA ltWJHoJNKyUQRwJJL6TCT6JUEAOfCuTGSzOISuCKjkXRQnYTXxao6NWAEcJERnPFn7GvOhFWAhDPPtDB loJLZlSDQoGMf6TMPmMNYwRD7JOvUnZIXiBOUuYKnwGLFzVRJump0YSZOqZGFiBYW7RDQyVZFlUJPdNO xeQIOyHUDjZZm9LWAkXDLxGP0EIxGxEDIrUYV2KQDz NVHpTTMptv1FXGGrBZXoUeX6GnSiGXZhYYLySYpcGYEkXKVfRLVqFUCuLNSuEW3JSfVdYBZoRYT1JOJj DMVrBSSsok4MSWFbIZBhJxi1VBUhEQMlYCErTRugQRQlYLZ2CVqzAENySOBqKQ2HWoMaWXNcTCW3ACja HCHlYPRybz6KDVVdUAByNviyKBDfKGHwOKPoYCmaOF ArETR6BFV9RDLzDKXnTV1BDiJqOIOfHBfeXZCaBXOpYKHazl6OAWFjQQBhLlIoWNKrEFOfXIFfUMzvFS DmRBO5ZcuaNEUvEYQvZT7QEzRhBDAnKWt7OXgxUAVgGBCuag6OWHFtMFPcYUewPZYhOHYtLMIfOYzaIA WiEQT5LCU3AOTjZLUmZN6ZIwVmWAJeWeV6WYPbKFKf DYBisw7YHWVoSGVfMUD4DCPhHMOtBOZkWWhbKTEsPGEuHDFqENJyWPCdWO2DYkVbIOafAZBWAqr3ZUdm S6o9PPUgKH6FL0Cfe1BjZeAvXSGCRDbhMZ4hfsOxYUKsJi8NE7rMVgi1FEplMXN6UyO7BwUrGBB0FAJj NNHrIBU0XUVmVeKoGp1zSMPrUICeKJFtZWgeTaZzMW FiJGWuGwU9ZhS6DnHaFHTsDeJdJR8IPy2YPoT1CUH1fCBjKn3TWsYoQShVTcIlRW1QTPt= ID Date Data Source [id number] 03/24/2021 05:34:00 AM EDT [facility] Name Value Range Interpretation Code Description Data Arabella rce(s) Supporting Document(s) AST 12 IU/L 15-37 Below low normal [facility] Sulfasalazine and sulfapyridine have the potential to falsely depressAspartate Aminotransferase results. Baseline values before medication administration are recommended. ALT 17 IU/L 13-56 Normal (applies to non-numeric resul ts) [facility] Sulfasalazine and sulfapyridine have the potential to falsely depressAlanine Aminotransferase results. Baseline values before medication administration are recommended. Alkaline Phosphatase 53 mIU/ml 50-136 Normal (applies to non-num madiha results) [facility] Total Bilirubin 0.70 mg/dl 0.20-1.00 Normal (applies to non-numeric results) [facility] Blood Urea Nitrogen 6 mg/dl 7-18 Below low normal [facility] Creatinine 0.62 mg/dl 0.51-0.95 Normal (applies to non-numeric resul ts) [facility] N-Acetylcysteine (NAC) and Metamizole em ve the potential to falselydepress Creatinine results. Baseline values before medication adminstration are recommended. Patients undergoing treatment with phenindione will have falselydepressed results. Patients on phenindione therapy should be tested with an alternativeCREA method.Toxic levels of acetaminophen may lead to falsely depressed results forpatient samples. Glomerular Filtration Rate >90.00 mL/min/1.73m2 [facility] GFR Reference Ranges:Normal Function or Mild Renal Disease,if clinically at risk:>or= 60Moderately decreased:30 - 59Severely decreased:15 - 29Renal Failure:<15 Please note that the MDRD equation requires an additional adjustment forAfrican-Americans (multiply the GFR result by 1.210).Glomarular Filtration Rate (GFR) is estimated based on the MDRDequation, which assumes a steady state for creatinine (Yaneli Int Med 139/2 137-149, 2003), as recommended by the Nationaldney Disease Education Program in conjunction with the National Institutes of Health and the National KidneyFoundation. The Kelley method used in calculating this result is traceable to IDKY standards. Glucose 91 mg/dl 70-110 Normal (applies to non-numeric resul ts) [facility] Sulfasalazine has the potential to false ly depress Glucose results. Sulfapyridine has the potential to falsely elevate Glucose results. Baseline values before medication administration are recommended. Calcium 8.2 mg/dl 8.5-10.1 Below low normal [facility] Total Protein 6.2 g/dl 6.4-8.2 Below low normal [facility] Albumin 2.8 g/dl 3.4-5.0 Below low normal [facility] Sodium 141 mEq/L 136-145 Normal (applies to non-numeric resul ts) [facility] Potassium 3.9 mEq/L 3.5-5.1 Normal (applies to non-numeric resul ts) [facility] Chloride 113.0 mEq/L 98.0-107.0 Above high normal [facility] Anion Gap 8.1 [facility] Carbon Dioxide 23.8 mMol/L 21.0-32.0 Normal (applies to non-numeric results) [facility] The above 16 analytes were performed by [facility] [id number], ,[place] [address] ID Date Data Source [id number] 03/24/2021 05:34:00 AM EDT [facility] Name Value Range Interpretation Code Description Data Arabella rce(s) Supporting Document(s) Magnesium 2.0 mg/dl 1.6-2.6 Normal (applies to non-numeric resul ts) [facility] The above 1 analytes were performed by [facility] [id number], ,[place] [address] ID Date Data Source [id number] 03/24/2021 05:26:00 AM EDT [facility] Name Value Range Interpretation Code Description Data Arabella rce(s) Supporting Document(s) WBC 6.03 x1000/ul 4.80-10.00 Normal (applies to non-numeric re sults) [facility] RBC 3.58 x1Mil/ul 4.20-5.40 Below low normal [facility] Hemoglobin 9.3 g/dl 12.0-16.0 Below low normal [facility] Hematocrit 30.2 % 37.0-47.0 Below low normal [facility] MCV 84.4 fL 81.0-99.0 Normal (applies to non-numeric resul ts) [facility] MCH 26.0 pg 27.0-31.0 Below low normal [facility] MCHC 30.8 g/dl 32.2-37.0 Below low normal [facility] RDW 16.3 % 11.5-14.5 Above high normal [facility] Platelet Count 230 x1000/ul 130-400 Normal (applies to non-numeric results) [facility] MPV 11.6 fL 9.4-12.4 Normal (applies to non-numeric resul ts) [facility] Neutrophils 46.6 % 40.0-74.0 Normal (applies to non-numeric resu lts) [facility] Lymphocytes 41.1 % 19.0-48.0 Normal (applies to non-numeric resu lts) [facility] Monocytes 9.1 % 3.4-9.0 Above high normal [facility] Eosinophils 2.0 % 0.0-7.0 Normal (applies to non-numeric resu lts) [facility] Basophils 1.0 % 0.0-2.0 Normal (applies to non-numeric resul ts) [facility] Immature Granulocytes 0.2 % 0.0-0.5 Normal (applies to non-nu meric results) [facility] Nucleated RBCs 0.00 % 0.00-0.20 Normal (applies to non-numeric r esults) [facility] Abs. Neutrophils 2.81 x1000/ul 1.92-8.31 Normal (applies to non-numeric results) [facility] Abs. Lymphocyte 2.48 x1000/ul 1.20-3.70 Normal (applies to non-n umeric results) [facility] Abs. Monocytes 0.55 x1000/ul 0.14-0.97 Normal (applies to non-nu meric results) [facility] Abs. Eosinophils 0.12 x1000/ul 0.00-0.76 Normal (applie s to non-numeric results) [facility] Abs. Basophils 0.06 x1000/ul 0.00-0.22 Normal (applies to non-n umeric results) [facility] Abs. Immature Gran. 0.01 x1000/ul 0.00-0.02 Normal (appl ies to non-numeric results) [facility] Abs. Nucleated RBCs 0.00 x1000/ul 0.00-0.02 Normal (appl ies to non-numeric results) [facility] The above 24 analytes were performed by [facility] [id number], ,[place] [address] ID Date Data Source [id number] 03/23/2021 11:42:40 PM EDT [facility] Name Value Range Interpretation Code Description Data Arabella rce(s) Supporting Document(s) Care Plan [facility] EMRLOg9xOpMAGxDz98/KLTelOWZxj1QgQGmnXSh6CQzcPJGsS6HsOBZ5kY8uUOX9LRmFZaZuOlNxBEW7 lbm [file] AgICAgICAgICAgICAgICAgICAgICAgICAgICAgICAg ICAgICAgICAgICAgICAgICAgICAgICAgICAgICAgICAgICANCiAgICAgICAgICAgICAgICAgICAgICAg ICAgICAgICAgICAgICAgICAgICAgICAgICAgICAgICAgICAgICAgICAgICAgICAgICAgICAgICAgICAg ICAgICAgICAgICAgICAgICANCiAgICAgICAgICAgIC AgICAgICAgICAgICAgICAgICAgICAgICAgICAgICAgICAgICAgICAgICAgICAgICAgICAgICAgICAgIC AgICAgICAgICAgICAgICAgICAgICAgICAgICANCiAgICAgICAgICAgICAgICAgICAgICAgICAgICAgIC AgICAgICAgICAgICAgICAgICAgICAgICAgICAgICAg ICAgICAgICAgICAgICAgICAgICAgICAgICAgICAgICAgICAgICANCiAgICAgICAgICAgICAgICAgICAg ICAgICAgICAgICAgICAgICAgICAgICAgICAgICAgICAgICAgICAgICAgICAgICAgICAgICAgICAgICAg ICAgICAgICAgICAgICAgICAgICANCiAgICAgICAgIC AgICAgICAgICAgICAgICAgICAgICAgICAgICAgICAgICAgICAgICAgICAgICAgICAgICAgICAgICAgIC AgICAgICAgICAgICAgICAgICAgICAgICAgICAgICANCiAgICAgICAgICAgICAgICAgICAgICAgICAgIC AgICAgICAgICAgICAgICAgICAgICAgICAgICAgICAg ICAgICAgICAgICAgICAgICAgICAgICAgICAgICAgICAgICAgICAgICANCiAgICAgICAgICAgICAgICAg ICAgICAgICAgICAgICAgICAgICAgICAgICAgICAgICAgICAgICAgICAgICAgICAgICAgICAgICAgICAg ICAgICAgICAgICAgICAgICAgICAgICANCiAgICAgIC AgICAgICAgICAgICAgICAgICAgICAgICAgICAgICAgICAgICAgICAgICAgICAgICAgICAgICAgICAgIC AgICAgICAgICAgICAgICAgICAgICAgICAgICAgICAgICANCiAgICAgICAgICAgICAgICAgICAgICAgIC AgICAgICAgICAgICAgICAgICAgICAgICAgICAgICAg ICAgICAgICAgICAgICAgICAgICAgICAgICAgICAgICAgICAgICAgICAgICANCjw/mYEcU2olpJHcknN5 S4piEz2VQd7RJN4ds2EvPLBcIJvaxuRhGdeFUcKdPDUnSnaUFew2UVowRS8PyDUyW8XcU5KnTXtkGE0Y USMmMHPnqHClDENfCXXeIdT5PLHgDQyvOP0KsIOhYK acBZOlKFLkHQ1WKCJyY576kvLhUD9ZEz4HBkSbWK2iud3HOzAtIPQdTzqCVzw7ZOtvFS3QdTKopAOdIk LfTLTSUnUcZ3oul3FoVqLsGONOOHwnQK1Li1RggSBePMq+Dd2LXB4fn1TyYEkzQiDmUD4tcv9KVPoFNq EaI8XoqBppLOVjcgAjJTqzqkJuhTZLLOF6FU5iIEOx saSvRCgbIBMIICU6IChrOSSaZyExIBCrZLk6NaQPYMnTLhYzL6Ncu5ZzBcH4DDAiXaTsBUwaXPXeWkG4 WS31hZqfTK4ECYFfHJCaRE79JPM7VTJpBn1VCg4OTfQvYE6uyb9LYiboWSJqFtjRMvf4QFtlTZ8MrTTe B4XmeJHcy9dHPlTeU4IJJJJmDJHdYq9BWXGsTtCnVI AgJFeeQL9gDMSeAXLOcQrpiuG0UR0HSH9vwdMwVK3GCjIvWf3iLj9UUiWfD5JgW5SyJNMoSGFWXMomOJ 1TTDghXG2nYU2Kv2BIvDPflN6wqr5DBTPmFDYaCckxso6POfkeK4D7jVprFUWaAfKeIIMVEHdrEG0OFY WyLBH3BTZqTQRzJPBFPnGxF88dKJ3QZ4Xuh49fSdE0 TAFhFrJdDXsoVV41hHexvbUhbJRxwNbiAY8EYz6+DQplbmRvYmoNCnhyZWYNCjAgMjgNCjAwMDAwMDAw CQXoHoT8DgLqOq4YQCGvDDQeNAMcMrFjSPVdQVIaYSejHNCySNJlKrIqPSDtSLSoWE7WVqXaLMEhIdZ3 VXOiYRJfMXQgvi4QHPMpLABsGCB9EtHjGJVhGBOjUE tiUEYhAOCyTDP2PEGkSKOfUG8OKnBvRHNoULLeCmYmEAOnVDFrwn3CRBUzRAGkShAfCLDwGTTsOYZhZL wmONDlCDUnSxL4NQDcSXLfPJ7LZoIsWYPdPEH9WAKwLPZlKUWssx7IMBPoWTVjCZY1MtTnCAIwCMRdPT sxLYXdKYA9JstkAVSxNKRwFQ0YRlShAVQmUNL8ULSe UFVaBQDgck1FWGCkJYZiHuBzFEFwEKArZVLsDFtvEDQzKKD5PNC8NSBzRLTjSM2BWqLbZIKzKFx9CoBq KGCoYUKfsx0TUQHzDHTwLjp6AbPgUAIaJVKzSImaJGAwYDK9SXYlXUKgRPKsNA6JAsTtGYHfIIxbSSBv USKqQYFiep6EUNAgMKIrBHA1JkFsOZAbJZPkERsePB ZhQCR2EHQ8LAUnCOLxDS4NQtIpXSBtTnTtNZAjXIUaHATxtb4UWDDtPAXlXUY8YLCoIOImQUHfGRbtXF JxOFWzOlN7HKSmDYLwUT6EArGnZBZzLiWsYcHuWFIvWBRfgk1QDDIeLHHlKbPuUIQiDEHgINQtCQwxIF KnXZSrEdh2ZJPeVTDsTH0NSoBtWRRcMrH5MjLoEOVr TQNasw4ShHQkrIoakw8MKYtQTt7MvHepOEE6IHexRk1xpOSiBzDmFMVWMs3HuiTlZQMbDISTDLpeSHTf QHxlUTv2VnB9ESCtSPXyUyIvQIKrYXMhCxDzRYlhHladAyR5RUV7URivOtJeICKmDNA2J6AzSjH1WdMo HOU5HUIwBPM+ES3cXZm+Uv7Am1JzhpR4bjFkSUesEnE2AQ4KXFAGK5FVVb== ID Date Data Source [id number] 03/23/2021 10:26:00 PM EDT [facility] Name Value Range Interpretation Code Description Data Arabella rce(s) Supporting Document(s) Glucose, Fingerstick 103 mg/dl 70-110 Normal (applies to non-num madiha results) [facility] The above 1 analytes [facility] [id number], ,[place] [address] ID Date Data Source [id number] 03/23/2021 10:23:00 PM EDT [facility] Name Value Range Interpretation Code Description Data Arabella rce(s) Supporting Document(s) Lactic Acid 1.8 mMol/L 0.4-2.0 Normal (applies to non-numeric resu lts) [facility] The above 1 analytes were performed by [facility] [id number], ,[place] [address] ID Date Data Source [id number] 03/23/2021 09:48:00 PM EDT [facility] Name Value Range Interpretation Code Description Data Arabella rce(s) Supporting Document(s) AST 12 IU/L 15-37 Below low normal [facility] Sulfasalazine and sulfapyridine have the potential to falsely depressAspartate Aminotransferase results. Baseline values before medication administration are recommended. ALT 16 IU/L 13-56 Normal (applies to non-numeric resul ts) [facility] Sulfasalazine and sulfapyridine have the potential to falsely depressAlanine Aminotransferase results. Baseline values before medication administration are recommended. Alkaline Phosphatase 56 mIU/ml 50-136 Normal (applies to non-num madiha results) [facility] Total Bilirubin 0.80 mg/dl 0.20-1.00 Normal (applies to non-numeric results) [facility] Blood Urea Nitrogen 7 mg/dl 7-18 Normal (applies to non-nume ny results) [facility] Creatinine 0.67 mg/dl 0.51-0.95 Normal (applies to non-numeric resul ts) [facility] N-Acetylcysteine (NAC) and Metamizole me ve the potential to falselydepress Creatinine results. Baseline values before medication adminstration are recommended. Patients undergoing treatment with phenindione will have falselydepressed results. Patients on phenindione therapy should be tested with an alternativeCREA method.Toxic levels of acetaminophen may lead to falsely depressed results forpatient samples. Glomerular Filtration Rate >90.00 mL/min/1.73m2 [facility] GFR Reference Ranges:Normal Function or Mild Renal Disease,if clinically at risk:>or= 60Moderately decreased:30 - 59Severely decreased:15 - 29Renal Failure:<15 Please note that the MDRD equation requires an additional adjustment forAfrican-Americans (multiply the GFR result by 1.210).Glomarular Filtration Rate (GFR) is estimated based on the MDRDequation, which assumes a steady state for creatinine (Yaneli Int Med 139/2 137-149, 2003), as recommended by the NationalKidney Disease Education Program in conjunction with the National Institutes of Health and the National KidneyFoundation. The Kelley method used in calculating this result is traceable to IDMS standards. Glucose 48 mg/dl 70-110 Below lower panic limits [facility] Sulfasalazine has the potential to false ly depress Glucose results. Sulfapyridine has the potential to falsely elevate Glucose results. Baseline values before medication administration are recommended.Repeat and Verified Called To (First Last):OBEY VALENTINE Degree/Accreditation of Person Called:RNLocation Called: [id number] Tests and Results Called:GLU 48Additional Tests that were Called:Read Back (Y/N):YDate:03/23/2021Time:2148By:CARTER CORDOBA Calcium 8.2 mg/dl 8.5-10.1 Below low normal [facility] Total Protein 6.6 g/dl 6.4-8.2 Normal (applies to non-numeric re sults) [facility] Albumin 3.0 g/dl 3.4-5.0 Below low normal [facility] Sodium 140 mEq/L 136-145 Normal (applies to non-numeric resul ts) [facility] Potassium 3.3 mEq/L 3.5-5.1 Below low normal [facility] Chloride 114.0 mEq/L 98.0-107.0 Above high normal [facility] Anion Gap 8.3 [facility] Carbon Dioxide 21.0 mMol/L 21.0-32.0 Normal (applies to non-numeric results) [facility] The above 16 analytes were performed by [facility] [address], ,[place] [address] ID Date Data Source [id number] 03/23/2021 09:30:00 PM EDT [facility] Name Value Range Interpretation Code Description Data Arabella rce(s) Supporting Document(s) Magnesium 2.0 mg/dl 1.6-2.6 Normal (applies to non-numeric resul ts) [facility] The above 1 analytes were performed by [facility] [id number], ,[place] [address] ID Date Data Source [id number] 03/23/2021 09:30:00 PM EDT [facility] Name Value Range Interpretation Code Description Data Arabella rce(s) Supporting Document(s) C-Reactive Protein (Non-Cardiac) <2.90 mg/L 0.00-3.00 Normal (applies to non- numeric results) [facility] The above 1 analytes were performed by [facility] [address], ,[place] [address] ID Date Data Source [id number] 03/23/2021 09:05:00 PM EDT [facility] Name Value Range Interpretation Code Description Data Arabella rce(s) Supporting Document(s) WBC 6.19 x1000/ul 4.80-10.00 Normal (applies to non-numeric re sults) [facility] RBC 3.47 x1Mil/ul 4.20-5.40 Below low normal [facility] Hemoglobin 9.1 g/dl 12.0-16.0 Below low normal [facility] Hematocrit 29.8 % 37.0-47.0 Below low normal [facility] MCV 85.9 fL 81.0-99.0 Normal (applies to non-numeric resul ts) [facility] MCH 26.2 pg 27.0-31.0 Below low normal [facility] MCHC 30.5 g/dl 32.2-37.0 Below low normal [facility] RDW 16.8 % 11.5-14.5 Above high normal [facility] Platelet Count 228 x1000/ul 130-400 Normal (applies to non-numeric results) [facility] MPV 11.4 fL 9.4-12.4 Normal (applies to non-numeric resul ts) [facility] Neutrophils 54.6 % 40.0-74.0 Normal (applies to non-numeric resu lts) [facility] Lymphocytes 34.7 % 19.0-48.0 Normal (applies to non-numeric resu lts) [facility] Monocytes 8.7 % 3.4-9.0 Normal (applies to non-numeric resul ts) [facility] Eosinophils 1.1 % 0.0-7.0 Normal (applies to non-numeric resu lts) [facility] Basophils 0.6 % 0.0-2.0 Normal (applies to non-numeric resul ts) [facility] Immature Granulocytes 0.3 % 0.0-0.5 Normal (applies to non-nu meric results) [facility] Nucleated RBCs 0.00 % 0.00-0.20 Normal (applies to non-numeric r esults) [facility] Abs. Neutrophils 3.37 x1000/ul 1.92-8.31 Normal (applies to non-numeric results) [facility] Abs. Lymphocyte 2.15 x1000/ul 1.20-3.70 Normal (applies to non-n umeric results) [facility] Abs. Monocytes 0.54 x1000/ul 0.14-0.97 Normal (applies to non-nu meric results) [facility] Abs. Eosinophils 0.07 x1000/ul 0.00-0.76 Normal (applie s to non-numeric results) [facility] Abs. Basophils 0.04 x1000/ul 0.00-0.22 Normal (applies to non-n umeric results) [facility] Abs. Immature Gran. 0.02 x1000/ul 0.00-0.02 Normal (appl ies to non-numeric results) [facility] Abs. Nucleated RBCs 0.00 x1000/ul 0.00-0.02 Normal (appl ies to non-numeric results) [facility] The above 24 analytes were performed by [facility] [id number], ,[place] [address] ID Date Data Source [id number] 03/23/2021 07:56:26 PM EDT [facility] Name Value Range Interpretation Code Description Data Arabella rce(s) Supporting Document(s) Nursing Note [facility] ELUXPn6wKbNJLbGx00/ZGVfbOIGtu5VsAWfbHOp0QUedOUUeB1YxWTW0uA3fACS7SUtFEjOfFeOhVTP0 lbm [file] 9GDQo= ID Date Data Source [id number] 03/23/2021 06:01:26 PM EDT [facility] Name Value Range Interpretation Code Description Data Arabella rce(s) Supporting Document(s) H&P [facility] HCAYRg7vZoPSKfEg02/DXCfrHVLqm1DqUAtxPBf0GVjvUMZuJ1NjCUK1eE5gKZS3EMmRBuMoGdRzGRF7 lbm [file] AgICAgICAgICAgICAgICAgICAgICAgICAgICAgICAgICAgICAgICAgICAgICAgICAgICAgICAgICAgIC VmNKDoAIOxDLIfGMZcXMEqJYWqQY3DDNNlUNXeNFAu ICAgICAgICAgICAgICAgICAgICAgICAgICAgICAgICAgICAgICAgICAgICAgICAgICAgICAgICAgICAg WCXxLUHdAOFpIDYhHVCrGFSmREUuPHCqGBAzUOVnZN0NBKLsYBZlCSNzRJTlEHWfJEJhBHBpGCHeFLCt ICAgICAgICAgICAgICAgICAgICAgICAgICAgICAgIC TiQSBoOORzDCUuMIObTGPkYYXqYYGkUYZxCZSkVBWrIQLnNNWeCJEiKI8GTEGoDAGpCFGePIZpNZNuKF AgICAgICAgICAgICAgICAgICAgICAgICAgICAgICAgICAgICAgICAgICAgICAgICAgICAgICAgICAgIC XtIIFyUYKkVLHxPYZqLTQhJUNuSEHaIA6WHPMjYFWr ICAgICAgICAgICAgICAgICAgICAgICAgICAgICAgICAgICAgICAgICAgICAgICAgICAgICAgICAgICAg XLGfAPEyLVGwDIJpKGNdRAIeQNWfIARyEXEeAUOsEPAkVQ2QZQKyEMJiLXAlIIYsTRGdKBLoSEDzMPKu ICAgICAgICAgICAgICAgICAgICAgICAgICAgICAgIC HjCKKcGQAeEECiMBUaDVZvSSPlVJQzBPUuKZKkIYKvWTMlDJQyCJPtGUZdLV7BUZMxTFQxJUGmGHIwNV AgICAgICAgICAgICAgICAgICAgICAgICAgICAgICAgICAgICAgICAgICAgICAgICAgICAgICAgICAgIC UdILXaORImKRAuXYAtCSEpVKKgRKXjDGXsJH5TWKIh ICAgICAgICAgICAgICAgICAgICAgICAgICAgICAgICAgICAgICAgICAgICAgICAgICAgICAgICAgICAg AFLkHUIjVUDiCBFcUBCpNLMxZWDaGRSdNDNwVHHfBUVwZTTkNR2EJAJgRRGpAQWoFHEdCPXyZKPlQNQj ICAgICAgICAgICAgICAgICAgICAgICAgICAgICAgIC ChZJGfJWPbCPZkDNGvAZTrMWSkVSHeOHOwJLHjFHBnQTAzMUEgBWIhADBqSOZeSL7HQTUlKWXsRKClKN AgICAgICAgICAgICAgICAgICAgICAgICAgICAgICAgICAgICAgICAgICAgICAgICAgICAgICAgICAgIC GaNHBwGSRrTXVqBFQzQIXdYPTuXQJxTCUdCRIqGK3F AA01yMZgp5Z4IXJkLF5lfvo/Sd5EATcbuaIetWQxRT7PTeJxMW4jvk5YIuUvDY0pwm9TTBiIGmWeI7L2 eBQuNEUfJRNWWlKhD74sFCexLk34VJvrIZElGsYiIXp9Hf5NJhPuG0uvNLRyGsZ7MGLnIuB7ZYUbZhG8 XCZqNtUpFXUwVPUrNH9HHDZlQ795gvIqNT1PRn8CGw FaAJ3xpq3ZFdqdVQCxEynTUfv1JDupWQ9UfBYnzSQnITAzUIRHLkNsQ7tah9CsNuifKHTKOIbgTL4Pf3 VudCAxDQo+Vl4UKH0hc7YuPPegQSQjIS1jdr2ZJXdBJiJeP3OegSmvIUzqJHGwdEIIpIBatoRMxKFiUF YMFBQsjXS9YiB9MiQzNnMrQFO7SZVeLM4uEBwfDR5U SLD0VChtQZPcPLRcA6uJCuYeXYkuZSWxvOhoOZ4ZRePuI6DxvvGatYLhHrQuJITVIw6+DQplbmRvYmoN NvF3GMRce1LjDWw7XI3UNDVtLHnsHE6YASNxhW0sNMnpSW7YKmIuXZDbKVYEWjFfY92jdTHsSEz9A6Ap YmVkZGVkRmlsZXMgPDwvTmFtZXMgWyBdDQogID4+ID 4+ZNhhJS6UDEnxmlDdTZBwZx7OGUUyAIEdHM7zOGQsDBVnT6O7xSqcOXMKTsHdP2uxvsmwHM9oJQSvR4 86jWzzcqOqHOI4SRFxPq8TFHQyTBH5TICyhXMhYbHpIEVVXYtiOK7ZjLXaJJR4zE9aFFweDDTiJHCmH7 pQPtLilWxpVX67zVlsxuKriAHbWGp+Ja9BDF5ha7Ag BQy7tlRbLDfeXYXcAOlqZHRlQSFiAAMoXDC1JWM8FGESHeBmGNAzGZZbSJrbKDNmHYIsph8BOATsRLJt ZTI9GEFdVZVxYBIsXGvnYBBuEHEaZTVwXQFkKBAlWU9SLnHpCXEjCMMtTUnrSXGzIWWyms8PPLQoLGWm YwNdOeOxUGKdDXBjFLxgKPUfNUOzTrH3MQDhCXOvTF 7EYtWvAJEgQBO0NgkhMIQnZXLizz8YGWEyLRXjQWM4AFCfSOUnDHPjFUvpGAVfJWD5ETXiYYDjGXGmXG 5ZAhWbLRLyIJxiXoexVOIcFKFgji0JKRYiRWLgMCP7NOUlTMJpTJWpHBxlPOGrKZJ0XSccKAFjDLTpLX 9WNaYuFTPbZRL0HhVrYSQpNASrxb1CPLLcUUTgVHOl MtKdJYYbXEJaCNtdIWZvFBBcADYcTSPhXLGeXW8LRfFsLEPhQZC2SQOlZGUoBTFbsy2XLIZpHDXhVEz7 AiAnNUKjPXFqKRpeCBJoCWUoIFVxEMYuRCXwCV9AQmNkOKFhBkK1KZykEPGdCTHmik0RQHPrNNXcMBxd HBViZXBfQDLpTBrvNQKuIHG5SGW8YQOhIUMzFG8UYb CiEVZiVwPnLjLiSPVtMMYnvc3IEMWsXMVhYZOsQFBzARInGPAnJBatDTEsZOA2ZcHqNYAqEWToDS0NXo GhQETeAzP5MZUgFHGwVFAqan9IHFWwAOIcXgdxOxXwBXTiVGUuKWauVZHcXLT4Mib4QDSrORMtYC3BJl KlQSRgSus9HRmyFMOzWAIqny9LEBUxYKTxIUXtBkUv YAAwMWRyNPhtJWLhBUM5DIm7VXItZTSqDB5SAhKlJXEjKamgPGbkDEYdVSKztg6LZQVmDTZnZZQkTxJn FFXiOCXzSHdiUODiWLGfDcd9PKOeFAGrNR9ZFcRlCESbOwP8MfYkZUXmEEGugk1BTJPqOWVkIQF7EKIo TTPlSTGiNSszNEEeVJTsEUNiLQAvVGPjWY4RDyQrCN LrAaS5YOJeELVaOBHsff4JXCRgDSUjJbM7VMMkNMDxXSUtHQxsDOGlLZAwXoz0CWCnVLKxPI5VKeOoXW xwVIZIGxe8ILufJ8z1ASS8RL1GN9Acu4JnNsjbQQNUHHpqLZ4apzDdYPLxPy0MB3aFTabjXKFjBEfgTW KhADIlAyYqUfX9MGKkPbI3VTA3CtinYI5pVUK9KIS9 LSSgV9BfHzRfMfCtQus9RlTeMQEvDeCwRyP7GnYpHT3OIk1ZNkE9QFM2sFYaRv6VNpGcMywDMsPdGL8I DQo= ID Date Data Source [id number] 03/22/2021 08:28:35 PM EDT [facility] Name Value Range Interpretation Code Description Data Arabella rce(s) Supporting Document(s) Progress Note [facility] FFLHIg9bGjJGTlSz98/KWEwfCDDdw5UyDItnZWu8JTacNHRbR1RnFIN0fX5uGQI7YOeGVkOxUhWbPGZ4 lbm ApCahXRgLvQSCpYboTMnOjVDpcVtodqPUiIQ8EuKI4NVUqR94fEAVpRIDnW1QkWWW7VKY+Hu2GAAIppN WrXJ5CUehR5Tiiy+G8EE7cMY3KnKVmMK8aFBxlDztRw4Eawa9CADLdehWGFHHlMphKfDt742h9SIoeFm vwduzbWW6wN4Z+u9/+lINFSDn7kcHF45Oozc+vv4YR Z8M5+/orVk/z+Hpa/DDDXrd2F33iCVJ/bb9iF1byf/rUn5Y08m/rwQmTgWAnkROw/ujobBr/3Zv93qYe UDABBss47KXBTSiKYXaSk3t/Kzvvs+fxSE0fUC4e0UnrUJGFvqgZ7xz3e8ExZ7xhXPY1opZxDqJ2GKng 39VQHrS0yiAuLzXf8DnXFXnu2r256ryIJ+fvIRTUuB U1Lc+JpIM+1lchf2h1xzVxwrAfTU1fkxhyTa0m4PGIE0QrB2eFzWascwvekN8XZZ5qJhAI0Xh2ginmwA ZgcK+r6ljwqRh7G8fwnfcZfFJpTt4m9eCN/B5FKxBaVRFeMqHSW9cO7HyjSjKklo/s/Qo1kfiJsuyLj4 6usyUnOoJQt9er/RLl++UKDomHHfmcNzgGHq7su2ky vSdyw3yun5Qn0xiOs9wvwl+y18ijdw0W/RJ5BnU9kLIfW+4VErMgGUt2ZWL2ClB3UpKnShFImG5r/ARNAUD [file] ID Date Data Source [id number] 03/22/2021 06:09:00 PM EDT [facility] TSYSORDER [id number] Name Value Range Interpretation Code Description Data Arabella rce(s) Supporting Document(s) URINE COLOR. [facility] URINE APPEARANCE CLEAR [facility] l URINE GLUCOSE (UA) NEGATIVE mg/dL NEGATIVE [facility] URINE BILIRUBIN NEGATIVE NEGATIVE [facility] URINE KETONE 5(TRACE) mg/dL NEGATIVE [facility] SPECIFIC GRAVITY,URINE 1.015 1.005-1.030 [facility] URINE BLOOD NEGATIVE NEGATIVE [facility] PH,URINE 7.5 5.0-9.0 [facility] URINE PROTEIN NEGATIVE mg/dL NEGATIVE [facility] URINE UROBILINOGEN NORMAL(0.2-1) mg/dL 0-1 [facility] URINE NITRATE NEGATIVE NEGATIVE [facility] URINE LEUKOCYTE ESTERASE NEGATIVE NEGATIVE [facility] ID Date Data Source [id number] 03/22/2021 05:30:00 PM EDT [facility] Name Value Range Interpretation Code Description Data Arabella rce(s) Supporting Document(s) COVID-19 NEGATIVE [facility] This lab was ordered by [facility] and reported by [facility]. ID Date Data Source [id number] 03/22/2021 06:06:00 PM EDT [facility] TSYSORDER [id number] Name Value Range Interpretation Code Description Data Arabella rce(s) Supporting Document(s) COVID-19 NEGATIVE NEGATIVE [facility] Negative results should be treated as pr esumptive and, ifinconsistent with clinical signs and symptoms or necessaryfor patient management, should be tested with differentauthorized or cleared molecular tests.Negative results do not preclude SARS-CoV-2 infection andshould not be used as the sole basis for patient managementdecisions.This is a rapid molecular isothermal nucleic acidamplification technology (NAAT) in vitro diagnostic testutilizing a loop mediated isothermal amplification (LAMP)test with nicking endonuclease amplification reaction(NEAR) intended for the qualitative detection of nucleica aracely from the SARS-CoV-2 viral RNA in direct nasal,nasopharyngeal or throat swabs from individuals who aresuspected of COVID-19.Results are for the indentification of SARS-CoV-2 RNA. EshSVTG-PbM-4 RNA is generally detectable in respiratorysamples during the actue phase of infection. ID Date Data Source [id number] 03/22/2021 04:58:00 PM [facility] DATE OF EXAMINATION: 03/22/2021 14:46 EDT ABD/PEL WITH IV CONTRAST HISTORY: Abdominal pain Comparison:06/28/2021 TECHNIQUE: This CT exam was performed using the following dose reductiontechniques: automated exposure control, adjustment of mA and/or kV according tothe patient's size, and use of iterative reconstruction technique. Standard contiguous axial spiral imaging was obtained from the dome of thediaphragms through the symphysis pubis without oral contrast and withintravenous contrast administration and with coronal reformatting. FINDINGS:Lower thorax: Lung bases are clear. No pleural or pericardial effusion ABDOMEN:Liver: Liver is normal. No focal hepatic lesions Gallbladder and bile ducts: Postcholecystectomy Pancreas: Normal Spleen: Normal Adrenals: Normal Kidneys and ureters: Normal Stomach and bowel: Patient is post bariatric surgery. No dilated small bowel.The colon, notably the distal descending colon and sigmoid colon are thickened. Appendix: Radius appendectomy Peritoneum/retroperitoneum:No free air, free fluid, collections. Mild strandingin the right hemiabdomen just inferior to the tip of the right hepatic lobe Lymph nodes:No adenopathy Soft tissues:Unremarkable Bones:Post laminectomy fusion of the lumbar spine. Mild scoliotic curve convexright. No acute fractures. Vessels:Unremarkable PELVIS:Bladder: The bladder is unremarkable Reproductive: Unremarkable IMPRESSION: 1. Thickening of the colon notably the sigmoid colon and distal descendingcolon. There is also mild inflammation surrounding the mid ascending colon. Thesinus can be consistent with colitis.2. Post bariatric surgery. Electronically signed in [id number] by: Geovanni Simms M.D. 03/22/2021 16:52 EDT Name Value Range Interpretation Code Description Data Arabella rce(s) Supporting Document(s) ID Date Data Source [id number] 03/22/2021 03:33:00 PM EDT [facility] l TSYSORDER [id number] Name Value Range Interpretation Code Description Data Arabella rce(s) Supporting Document(s) LACTIC ACID 0.9 mmol/L 0.4-2.0 [facility] ID Date Data Source [id number] 03/22/2021 03:31:00 PM EDT [facility] l TSYSORDER [id number] Name Value Range Interpretation Code Description Data [facility] rce(s) Supporting Document(s) GLUCOSE 88 mg/dL 74-106 [facility] BLOOD UREA NITROGEN 11 mg/dL 7-18 [facility] ital CREATININE 0.71 mg/dL 0.6-1.0 [facility] SODIUM 139 mmol/L 136-145 [facility] POTASSIUM 4.2 mmol/L 3.5-5.1 [facility] CHLORIDE 105 mmol/L 98-107 [facility] CO2 23 mmol/L 21-32 [facility] CALCIUM 9.2 mg/dL 8.5-10.1 [facility] ANION GAP 11.0 mmol/L 5-12 [facility] GLOMERULAR FILTRATION RATE >90 mL/min [facility] GFR IS CALCULATED IN mL/min/1.73m2 JUDITH L FUNCTION: >90MILDLY DECREASED: 60-89MILDY TO MODERATELY DECREASED: 45-59 MODERATELY TO SEVERELY DECREASED: 30-44SEVERELY DECREASED: 15-29RENAL FAILURE: <15 AST 20 U/L 15-37 [facility] ALT 20 U/L 12-78 [facility] ALKALINE PHOSPHATASE 70 U/L 46-116 [facility]ital TOTAL BILIRUBIN 1.0 mg/dL 0.2-1.0 [facility] TOTAL PROTEIN 7.6 g/dl 6.4-8.2 [facility] ALBUMIN 3.4 gm/dL 3.4-5.0 [facility] ID Date Data Source [id number] 03/22/2021 03:31:00 PM EDT [facility] l TSYSORDER [id number] Name Value Range Interpretation Code Description Data Arabella rce(s) Supporting Document(s) LIPASE 117 U/L 73-393 [facility] ID Date Data Source [id number] 03/22/2021 03:24:00 PM EDT [facility] TSYSORDER [id number] Name Value Range Interpretation Code Description [facility](s) HCG,SERUM NEGATIVE NEGATIVE [facility] False negative results may occur when th e levels of hCG arebelow the sensitivity level of the test. If isstill suspected, a first morning urine specimen should becollected 48hrs later.This test has a sensitivity of 10mIU/mL in serum vgk05pFY/mL in urine. ID Date Data Source [id number] 03/22/2021 03:10:00 PM EDT [facility] l TSYSORDER [id number] Name Value Range Interpretation Code Description Data [facility](s) Supporting Document(s) WHITE BLOOD COUNT 6.3 K/mm3 4.0-10.0 [facility] al RED BLOOD COUNT 3.90 M/mm3 4.00-5.50 L [facility] HEMOGLOBIN 10.2 gm/dL 12.0-16.0 L [facility] HEMATOCRIT 31.5 % 36.0-48.8 L [facility] MEAN CELL VOLUME 80.8 fl 80-96 [facility] MEAN CORPUSCULAR HEMOGLOBIN 26.2 pg 27.0-31.[address] [facility] MEAN CORPUSCULAR HGB CONC 32.4 g/dl 32.0-36.0 [facility] RED CELL DISTRIBUTION WIDTH 16.4 % 10.0-14.[address] [facility] PLATELET COUNT 146 K/mm3 172-450 L [facility] MEAN PLATELET VOLUME 12.1 fl 9.0-13.0 [facility] pital GRAN % 60.8 % 50-80.0 [facility] IG% 0.2 % 0.0-0.2 [facility] LYMPH % 30.7 % 25.0-50.0 [facility] MONO % 6.7 % 2.0-10.0 [facility] EOS % 1.0 % 0-5.0 [facility] BASO % 0.6 % 0.0-2.0 [facility] GRAN # 3.8 K/mm3 2.0-8.00 [facility] IG# 0.0 K/mm3 0.0-0.2 [facility] LYMPH # 1.9 K/mm3 1.0-5.0 [facility] MONO # 0.4 K/mm3 0.10-1.20 [facility] EOS # 0.1 K/mm3 0.0-0.5 [facility] BASO # 0.0 K/mm3 0.0-0.2 [facility] ID Date Data Source [id number] 03/19/2021 08:43:00 AM EDT [facility] l DATE OF EXAMINATION: 03/19/2021 8:12 EDT ABD/PEL NO CONTRAST HISTORY: Pain diarrhea TECHNIQUE: This CT exam was performed using the following dose reduction techniques:automated exposure control, adjustment of mA and/or kV according to thepatient's size, and use of iterative reconstruction technique. Standard contiguous axial spiral imaging was obtained from the dome of thediaphragms through the symphysis pubis without oral contrast and withoutintravenous contrast administration and with coronal reformatting. FINDINGS: Lower thorax: Unremarkable ABDOMEN: Liver: Mild fatty infiltration. No focal mass or hepatomegalyGallbladder and bile ducts: CholecystectomyPancreas: UnremarkableSpleen: UnremarkableAdrenals: UnremarkableKidneys and ureters: No nephrolithiasis or nephrocalcinosis or hydronephrosisStomach and bowel: Gastric bypass. Moderate to large amount of stool throughoutthe colon.Appendix: Findings consistent with appendectomy PELVIS: Bladder: Nondistended and unopacified therefore unable to evaluateReproductive: Not seen Mild dextroconvex scoliosis. Fixation bandar at L3-S1 with beam hardening artifact IMPRESSION: Status post gastric bypass, appendectomy. Spinal fixation rods at L3-S1 Electronically signed in [id number] by: Khalida Stafford M.D. 03/19/2021 8:37 EDT Name Value Range Interpretation Code Description Data [facility](s) Supporting Document(s) ID Date Data Source CT ABD/PEL NO CONTRAST - [id number] 03/19/2021 12:00:00 AM EDT eC W1 ([facility]) Name Value Range Interpretation Code Description Data [facility]ella rce(s) Supporting Document(s) CT ABD/PEL NO CONTRAST - [id number] eCW1 ([facility]) ID Date Data Source [id number] 03/10/2021 04:36:00 PM EDT [facility] l DATE OF EXAMINATION: 03/10/2021 16:09 EDT CHEST 2 VIEWS HISTORY: Pain TECHNIQUE: PA and lateral radiographs of the chest COMPARISON: 01/18/2080 FINDINGS: No evidence of focal consolidation, pneumothorax or large pleural effusion.Lungs are clear. Mediastinal structures are unremarkable. No aggressive osseouslesions. IMPRESSION: No focal consolidation. Electronically signed in [id number] by: Khalida Stafford M.D. 03/10/2021 16:30 EDT Name Value Range Interpretation Code Description Data Arabella rce(s) Supporting Document(s) ID Date Data Source [id number] 03/10/2021 04:50:00 PM EDT [facility] l Name Value Range Interpretation Code Description Data Arabella rce(s) Supporting Document(s) FERRITIN 7 ng/mL 8-252 L [facility] ID Date Data Source [id number] 03/10/2021 04:50:00 PM EDT [facility] Name Value Range Interpretation Code Description Data Arabella rce(s) Supporting Document(s) IRON 38 ug/dL 50-170 L [facility] TIBC 429 ug/dL 250-450 [facility] % SATURATION 9 % 20-50 [facility] ID Date Data Source [id number] 03/10/2021 04:50:00 PM EDT [facility] l Name Value Range Interpretation Code Description Data Arabella rce(s) Supporting Document(s) TROPONIN-HIGH SENSITIVITY < 4.0 ng/L 0-60.4 [facility] ID Date Data Source [id number] 03/10/2021 04:50:00 PM EDT [facility] l Name Value Range Interpretation Code Description Data Arabella rce(s) Supporting Document(s) CKMB 1.3 ng/ml 0.0-3.6 [facility] ID Date Data Source [id number] 03/10/2021 04:50:00 PM EDT [facility] l Name Value Range Interpretation Code Description Data Arabella rce(s) Supporting Document(s) GLUCOSE 89 mg/dL 74-106 [facility] BLOOD UREA NITROGEN 11 mg/dL 7-18 [facility] ital CREATININE 0.85 mg/dL 0.6-1.0 [facility] SODIUM 138 mmol/L 136-145 [facility] POTASSIUM 4.2 mmol/L 3.5-5.1 [facility] CHLORIDE 104 mmol/L 98-107 [facility] CO2 27 mmol/L 21-32 [facility] CALCIUM 8.7 mg/dL 8.5-10.1 [facility] ANION GAP 7.0 mmol/L 5-12 [facility] GLOMERULAR FILTRATION RATE 75 mL/min [facility] GFR IS CALCULATED IN mL/min/1.73m2 JUDITH L FUNCTION: >90MILDLY DECREASED: 60-89MILDY TO MODERATELY DECREASED: 45-59 MODERATELY TO SEVERELY DECREASED: 30-44SEVERELY DECREASED: 15-29RENAL FAILURE: <15 AST 15 U/L 15-37 [facility] ALT 20 U/L 12-78 [facility] ALKALINE PHOSPHATASE 80 U/L 46-116 [facility] pital TOTAL BILIRUBIN 0.5 mg/dL 0.2-1.0 [facility] TOTAL PROTEIN 7.8 g/dl 6.4-8.2 [facility] ALBUMIN 3.5 gm/dL 3.4-5.0 [facility] ID Date Data Source [id number] 03/10/2021 04:50:00 PM EDT [facility] Name Value Range Interpretation Code Description Data Arabella rce(s) Supporting Document(s) FREE T4 0.4 ng/dL 0.76-1.46 L [facility] ID Date Data Source [id number] 03/10/2021 04:50:00 PM EDT [facility] Name Value Range Interpretation Code Description Data Arabella rce(s) Supporting Document(s) TSH 27.184 uIU/mL 0.360-3.740 H [facility] ID Date Data Source [id number] 03/10/2021 04:22:00 PM EDT [facility] l Name Value Range Interpretation Code Description Data Arabella rce(s) Supporting Document(s) WHITE BLOOD COUNT 6.9 K/mm3 4.0-10.0 [facility] 4.05 M/mm3 4.00-5.50 [facility] HEMOGLOBIN 10.4 gm/dL 12.0-16.0 L [facility] HEMATOCRIT 33.2 % 36.0-48.8 L [facility] MEAN CELL VOLUME 82.0 fl 80-96 [facility] MEAN CORPUSCULAR HEMOGLOBIN 25.7 pg 27.0-31.[address] [facility] MEAN CORPUSCULAR HGB CONC 31.3 g/dl 32.0-36.0 L [facility] RED CELL DISTRIBUTION WIDTH 16.2 % 10.0-14.[address] [facility] PLATELET COUNT 360 K/mm3 172-450 [facility] MEAN PLATELET VOLUME 10.3 fl 9.0-13.0 [facility] pital GRAN % 55.3 % 50-80.0 [facility] IG% 0.1 % 0.0-0.2 [facility] LYMPH % 34.2 % 25.0-50.0 [facility] MONO % 7.6 % 2.0-10.0 [facility] EOS % 2.2 % 0-5.0 [facility] BASO % 0.6 % 0.0-2.0 [facility] GRAN # 3.8 K/mm3 2.0-8.00 [facility] IG# 0.0 K/mm3 0.0-0.2 [facility] LYMPH # 2.4 K/mm3 1.0-5.0 [facility] MONO # 0.5 K/mm3 0.10-1.20 [facility] EOS # 0.2 K/mm3 0.0-0.5 [facility] BASO # 0.0 K/mm3 0.0-0.2 [facility] ID Date Data Source [id number] 03/10/2021 04:59:00 PM EDT [facility] FAX [phone] Name Value Range Interpretation Code Description Data Arabella rce(s) Supporting Document(s) LITHIUM < 0.20 mmol/L 0.6-1.20 L [facility] ID Date Data Source FERRITIN 03/10/2021 12:00:00 AM EDT eCW1 ([facility]) Name Value Range Interpretation Code Description Data Arabella rce(s) Supporting Document(s) 7 9-252 FERRITIN eCW1 ([facility]) ID Date Data Source IRON PROFILE 03/10/2021 12:00:00 AM EDT eCW1 ([facility]) Name Value Range Interpretation Code Description Data Arabella rce(s) Supporting Document(s) 429 250-450 TIBC eCW1 ([facility]) 38 50-170 IRON eCW1 ([facility]) 9 20-50 % SATURATION eCW1 ([facility]) ID Date Data Source [id number]/[id number] 03/10/2021 12:00:00 AM EDT eCW1 ([facility]) Name Value Range Interpretation Code Description Data Arabella rce(s) Supporting Document(s) 10.4 12.0-16.0 HEMOGLOBIN eCW1 ([facility]) 4.05 4.00-5.50 RED BLOOD COUNT eCW1 ([facility]) 6.9 4.0-10.0 WHITE BLOOD COUNT eCW1 ([facility]) 25.7 27.0-31.0 MEAN CORPUSCULAR HEMOGLOB IN eCW1 ([facility]) 82.0 80-96 MEAN CELL VOLUME eCW1 ([facility]) 33.2 36.0-48.8 HEMATOCRIT eCW1 ([facility]) 31.3 32.0-36.0 MEAN CORPUSCULAR HGB CONC eCW1 ([facility]) 16.2 10.0-14.5 RED CELL DISTRIBUTION WID TH eCW1 ([facility]) 360 172-450 PLATELET COUNT eCW1 ([facility]) 34.2 25.0-50.0 LYMPH % eCW1 ([facility]) 7.6 2.0-10.0 MONO % eCW1 ([facility]) 10.3 9.0-13.0 MEAN PLATELET VOLUME eCW1 ([facility]) 55.3 50-80.0 GRAN % eCW1 ([facility]) 0.6 0.0-2.0 BASO % eCW1 ([facility]) 3.8 2.0-8.00 GRAN # eCW1 ([facility]) 2.2 0-5.0 EOS % eCW1 ([facility]) 0.2 0.0-0.5 EOS # eCW1 ([facility]) 2.4 1.0-5.0 LYMPH # eCW1 ([facility]) 0.5 0.10-1.20 MONO # eCW1 ([facility]) 0.0 0.0-0.2 BASO # eCW1 ([facility]) ID Date Data Source CHEST 2 VIEWS 03/10/2021 12:00:00 AM EDT eCW1 ([facility]) Name Value Range Interpretation Code Description Data Arabella rce(s) Supporting Document(s) CHEST 2 VIEWS eCW1 ([facility]) ID Date Data Source FREE T4 03/10/2021 12:00:00 AM EDT eCW1 ([facility]) Name Value Range Interpretation Code Description Data Arabella rce(s) Supporting Document(s) 0.4 0.76-1.46 FREE T4 eCW1 ([facility]) ID Date Data Source TSH 03/10/2021 12:00:00 AM EDT eCW1 ([facility]) Name Value Range Interpretation Code Description Data Arabella rce(s) Supporting Document(s) 27.184 0.360-3.740 TSH eCW1 ([facility]) ID Date Data Source CKMB 03/10/2021 12:00:00 AM EDT eCW1 ([facility]) Name Value Range Interpretation Code Description Data Arabella rce(s) Supporting Document(s) 1.3 0.0-3.6 [facility] eCW1 ([facility]) ID Date Data Source [id number] 01/30/2021 08:06:00 AM EDT [facility] Name Value Range Interpretation Code Description Data Arabella rce(s) Supporting Document(s) Folate (Folic Acid), Serum 8.6 ng/mL >3.0 [facility] A serum folate concentration of less simi n 3.1 ng/mL isconsidered to represent clinical deficiency. ID Date Data Source [id number] 01/30/2021 08:06:00 AM EDT [facility] Name Value Range Interpretation Code Description Data Arabella rce(s) Supporting Document(s) Vitamin B12 351 pg/mL [id number] [facility] ID Date Data Source [id number] 01/30/2021 08:06:00 AM EDT [facility] l Name Value Range Interpretation Code Description Data Arabella rce(s) Supporting Document(s) FOLATE (FOLIC ACID), SERUM 8.6 ng/mL >3.0 [facility] A serum folate concentration of less simi n 3.1 ng/mL isconsidered to represent clinical deficiency. ID Date Data Source [id number] 01/30/2021 08:06:00 AM EDT [facility] Name Value Range Interpretation Code Description Data Arabella rce(s) Supporting Document(s) VITAMIN B12 351 pg/mL [id number] [facility] Performed at: RN - [facility] [place] [id number] Director: Sharmaine Siddiqui MD, Phone: [phone] ID Date Data Source [id number] 01/29/2021 03:33:00 PM EDT [facility] Name Value Range Interpretation Code Description Data Arabella rce(s) Supporting Document(s) IRON 31 ug/dL 50-170 [facility] TIBC 462 ug/dL 250-450 H [facility] % SATURATION 7 % 20-50 [facility] ID Date Data Source [id number] 01/15/2021 01:59:00 PM EDT [facility] DATE OF EXAMINATION: 01/15/2021 11:42 EDT HISTORY: Trauma TECHNIQUE: 4 views of the Left third Finger were obtained. FINDINGS: There is no fracture, dislocation or arthritic changes. Bones and soft tissuesappear normal. IMPRESSION: Unremarkable study of the finger. Electronically signed in PS360 by: Khalida Stafford M.D. 01/15/2021 13:54 EDT Name Value Range Interpretation Code Description Data Arabella rce(s) Supporting Document(s) ID Date Data Source [id number] 01/15/2021 12:37:00 PM EDT [facility] DATE OF EXAMINATION: 01/15/2021 11:42 EDT HISTORY: Trauma pain TECHNIQUE: 4 views of the Right Finger were obtained. FINDINGS: There is no fracture, dislocation or arthritic changes. Bones and soft tissuesappear normal. IMPRESSION: Unremarkable study of the finger. Electronically signed in PS360 by: Khalida Stafford M.D. 01/15/2021 12:09 EDT Name Value Range Interpretation Code Description Data Arabella rce(s) Supporting Document(s) ID Date Data Source [id number] 01/15/2021 11:52:00 AM EDT [facility] Name Value Range Interpretation Code Description Data Arabella rce(s) Supporting Document(s) WHITE BLOOD COUNT 6.3 K/mm3 4.0-10.0 [facility] 3.71 M/mm3 4.00-5.50 L [facility] l HEMOGLOBIN 9.7 gm/dL 12.0-16.0 L [facility] HEMATOCRIT 30.5 % 36.0-48.8 L [facility] MEAN CELL VOLUME 82.2 fl 80-96 [facility] MEAN CORPUSCULAR HEMOGLOBIN 26.1 pg 27.0-31.[address] [facility] MEAN CORPUSCULAR HGB CONC 31.8 g/dl 32.0-36.0 L [facility] RED CELL DISTRIBUTION WIDTH 13.7 % 10.0-14.5 [facility] PLATELET COUNT 255 K/mm3 172-450 [facility] MEAN PLATELET VOLUME 10.9 fl 9.0-13.0 [facility] pital GRAN % 53.2 % 50-80.0 [facility] IG% 0.0 % 0.0-0.2 [facility] LYMPH % 35.0 % 25.0-50.0 [facility] MONO % 9.1 % 2.0-10.0 [facility] EOS % 2.1 % 0-5.0 [facility] BASO % 0.6 % 0.0-2.0 [facility] GRAN # 3.4 K/mm3 2.0-8.00 [facility] IG# 0.0 K/mm3 0.0-0.2 [facility] LYMPH # 2.2 K/mm3 1.0-5.0 [facility] MONO # 0.6 K/mm3 0.10-1.20 [facility] EOS # 0.1 K/mm3 0.0-0.5 [facility] BASO # 0.0 K/mm3 0.0-0.2 [facility] ID Date Data Source [id number] 01/15/2021 12:35:00 PM EDT [facility] Name Value Range Interpretation Code Description Data Arabella rce(s) Supporting Document(s) ERYTHROCYTE SEDIMENTATION RATE 70 mm/hr 0-20 H [facility] ID Date Data Source [id number] 01/15/2021 12:10:00 PM EDT [facility] l Name Value Range Interpretation Code Description Data Arabella rce(s) Supporting Document(s) FREE T4 0.5 ng/dL 0.76-1.46 [facility] ID Date Data Source [id number] 01/15/2021 12:10:00 PM EDT [facility] l Name Value Range Interpretation Code Description Data Arabella rce(s) Supporting Document(s) TSH 19.669 uIU/mL 0.360-3.740 H [facility] ID Date Data Source [id number] 01/15/2021 11:59:00 AM EDT [facility] Name Value Range Interpretation Code Description Data Arabella rce(s) Supporting Document(s) GLUCOSE 72 mg/dL 74-106 [facility] BLOOD UREA NITROGEN 14 mg/dL 7-18 [facility] ital CREATININE 0.83 mg/dL 0.6-1.0 [facility] SODIUM 138 mmol/L 136-145 [facility] POTASSIUM 4.5 mmol/L 3.5-5.1 [facility] CHLORIDE 104 mmol/L 98-107 [facility] CO2 27 mmol/L 21-32 [facility] CALCIUM 8.8 mg/dL 8.5-10.1 [facility] ANION GAP 7.0 mmol/L 5-12 [facility] GLOMERULAR FILTRATION RATE 77 mL/min [facility] GFR IS CALCULATED IN mL/min/1.73m2 JUDITH L FUNCTION: >90MILDLY DECREASED: 60-89MILDY TO MODERATELY DECREASED: 45-59 MODERATELY TO SEVERELY DECREASED: 30-44SEVERELY DECREASED: 15-29RENAL FAILURE: <15 AST 16 U/L 15-37 [facility] ALT 23 U/L 12-78 [facility] ALKALINE PHOSPHATASE 76 U/L 46-116 [facility] pital TOTAL BILIRUBIN 0.5 mg/dL 0.2-1.0 [facility] TOTAL PROTEIN 6.9 g/dl 6.4-8.2 [facility] ALBUMIN 3.5 gm/dL 3.4-5.0 [facility] ID Date Data Source Urinalysis, Routine 01/15/2021 12:00:00 AM EDT eCW1 ([facility]) Name Value Range Interpretation Code Description Data Arabella rce(s) Supporting Document(s) Color of Urine Ellen Urine-Color eCW1 ([facility]) Microscopic Examination eCW1 ( [facility]) Specific gravity of Urine 1.025 Specific G ravity eCW1 ([facility]) Appearance of Urine Clear Appearance eCW1 ([facility]) pH of Urine by Test strip 5 pH eCW1 ([facility]) Glucose [Presence] in Urine NEG Glucose eCW1 ([facility]) Protein [Presence] in Urine by Test strip NEG Protein eCW1 ([facility]) Bilirubin.total [Presence] in Urine by Test strip NEG Bilirubin eCW1 ([facility]) Hemoglobin [Presence] in Urine by Test strip NEG Occult Blood eCW1 ([facility]) Nitrite [Presence] in Urine by Test strip NEG Nitrite, Urine eCW1 ([facility]) Urobilinogen [Mass/volume] in Urine by Test strip NEG Urobilinogen,Semi-Qn eCW1 ([facility]) Ketones [Presence] in Urine by Test strip NEG Ketones eCW1 ([facility]) Urinalysis Gross Exam eCW1 ([facility]) Leukocyte esterase [Presence] in Urine by Test strip NEG WBC Esterase eCW1 ([facility]) Procedure Social History Code Duration Value Status Description Data Source(s ) Smoking 05/05/2021 12:00:00 AM EDT Current Smoker completed Curre nt Smoker eCW1 ([facility]) Smoking 05/05/2021 12:00:00 AM EDT Current Smoker completed Curre nt Smoker eCW1 ([facility]) Smoking 05/05/2021 12:00:00 AM EDT Current Smoker completed Curre nt Smoker eCW1 ([facility]) Alcohol intake 05/02/2021 12:00:00 AM EDT Ex-drinker (finding) comp leted Ex- drinker (finding) [facility] Tobacco use and exposure 05/02/2021 12:00:00 AM EDT Never used co mpleted Never used [facility] Smoking 05/02/2021 12:00:00 AM EDT Former smoker completed Former smoker [facility] Alcohol intake 04/25/2021 12:00:00 AM EDT Ex-drinker (finding) comp leted Ex- drinker (finding) [facility] Smoking 03/10/2021 12:00:00 AM EDT Current Smoker completed Curre nt Smoker eCW1 ([facility]) Smoking 03/10/2021 12:00:00 AM EDT Current Smoker completed Curre nt Smoker eCW1 ([facility]) Smoking 03/10/2021 12:00:00 AM EDT Current Smoker completed Curre nt Smoker eCW1 ([facility]) Smoking 03/10/2021 12:00:00 AM EDT Current Smoker completed Curre nt Smoker eCW1 ([facility]) Smoking 03/10/2021 12:00:00 AM EDT Current Smoker completed Curre nt Smoker eCW1 ([facility]) Smoking 03/10/2021 12:00:00 AM EDT Current Smoker completed Curre nt Smoker eCW1 ([facility]) Smoking 02/21/2021 12:00:00 AM EDT Current Smoker completed Curre nt Smoker eCW1 ([facility]) Smoking 02/13/2021 12:00:00 AM EDT Current Smoker completed Curre nt Smoker eCW1 ([facility]) Smoking 01/31/2021 12:00:00 AM EDT Current Smoker completed Curre nt Smoker eCW1 ([facility]) Smoking 01/29/2021 12:00:00 AM EDT Current Smoker completed Curre nt Smoker eCW1 ([facility]) Smoking 01/29/2021 12:00:00 AM EDT Current Smoker completed Curre nt Smoker eCW1 ([facility]) Smoking 01/29/2021 12:00:00 AM EDT Current Smoker completed Curre nt Smoker eCW1 ([facility]) Smoking 01/15/2021 12:00:00 AM EDT Current Smoker completed Curre nt Smoker eCW1 ([facility]) Smoking 01/15/2021 12:00:00 AM EDT Current Smoker completed Curre nt Smoker eCW1 ([facility]) Smoking 01/15/2021 12:00:00 AM EDT Current Smoker completed Curre nt Smoker eCW1 ([facility]) Smoking 01/15/2021 12:00:00 AM EDT Current Smoker completed Curre nt Smoker eCW1 ([facility]) Smoking 01/15/2021 12:00:00 AM EDT Current Smoker completed Curre nt Smoker eCW1 ([facility]) 03/20/2021 12:00:00 AM EDT Smoker completed Smoker [facility] 03/20/2021 12:00:00 AM EDT Current smoker completed Curre nt smoker [facility] Vital Signs ID Date Data Source UNK Name Value Range Interpretation Code Description Data Source(s) Body temperature 36.22 Jayde 36.22 Jayde [facility] Systolic blood pressure 107 mm[Hg] 107 mm[Hg] [facility] Diastolic blood pressure 63 mm[Hg] 63 mm[Hg] [facility] Heart rate 50 /min 50 /min [facility] Respiratory rate 18 /min 18 /min [facility] Oxygen saturation in Arterial blood by Pulse oximetry 99 % 99 % [facility] Body height 174 cm 174 cm [facility] Body weight 77.111 kg 77.111 kg [facility] Body mass index (BMI) [Ratio] 25.47 kg/m2 25.47 kg/m2 [facility] Systolic blood pressure 104 mm[Hg] 104 mm[Hg] [facility] Diastolic blood pressure 70 mm[Hg] 70 mm[Hg] [facility] Heart rate 46 /min 46 /min [facility] Body temperature 36.17 Jayde 36.17 Jayde [facility] Respiratory rate 16 /min 16 /min [facility] Oxygen saturation in Arterial blood by Pulse oximetry 99 % 99 % [facility] Body height 172 cm 172 cm [facility] Body weight 80.287 kg 80.287 kg [facility] Body mass index (BMI) [Ratio] 27.14 kg/m2 27.14 kg/m2 [facility] Systolic blood pressure 92 mm[Hg] 92 mm[Hg] [facility] Diastolic blood pressure 59 mm[Hg] 59 mm[Hg] [facility] Heart rate 64 /min 64 /min [facility] Respiratory rate 16 /min 16 /min [facility] Oxygen saturation in Arterial blood by Pulse oximetry 97 % 97 % [facility] Body temperature 36.78 Jayde 36.78 Jayde [facility] Body height 172 cm 172 cm [facility] Body weight 82 kg 82 kg [facility] Body mass index (BMI) [Ratio] 27.72 kg/m2 27.72 kg/m2 [facility] Diastolic blood pressure 59 mm[Hg] 59 mm[Hg] DAVID ([facility]) Body height 69 [in_i] 69 [in_i] DAVID ([facility]) Body mass index (BMI) [Ratio] 26.5 kg/m2 26.5 k g/m2 DAVID ([facility]) Systolic blood pressure 97 mm[Hg] 97 mm[Hg] A THENA ([facility]) Body weight 179.2 [lb_av] 179.2 [lb_av] DAVID ([facility]) Diastolic blood pressure 59 mm[Hg] 59 mm[Hg] DAVID ([facility]) Body height 69 [in_i] 69 [in_i] DAVID ([facility]) Body mass index (BMI) [Ratio] 26.5 kg/m2 26.5 k g/m2 DAVID ([facility]) Systolic blood pressure 97 mm[Hg] 97 mm[Hg] A THENA ([facility]) Body weight 179.2 [lb_av] 179.2 [lb_av] DAVID ([facility]) Body height 68 [in_i] 68 [in_i] eCW1 ([facility]) Body weight 179.6 [lb_av] 179.6 [lb_av] eCW1 ([facility]) Body mass index (BMI) [Ratio] 27.31 kg/m2 27.31 kg/m2 eCW1 ([facility]) Body temperature 98.8 [degF] 98.8 [degF] eCW1 ( [facility]) Heart rate 86 /min 86 /min eCW1 ([facility]) Respiratory rate 18 /min 18 /min eCW1 ([facility]) Oxygen saturation in Arterial blood by Pulse oximetry 100 % 100 % eCW1 ([facility]) Body height 68 [in_i] 68 [in_i] eCW1 ([facility]) Body weight 180.6 [lb_av] 180.6 [lb_av] eCW1 ([facility]) Body mass index (BMI) [Ratio] 27.46 kg/m2 27.46 kg/m2 eCW1 ([facility]) Body temperature 98.2 [degF] 98.2 [degF] eCW1 ( [facility]) Heart rate 92 /min 92 /min eCW1 ([facility]) Respiratory rate 18 /min 18 /min eCW1 ([facility]) Oxygen saturation in Arterial blood by Pulse oximetry 100 % 100 % eCW1 ([facility]) Body height 68 [in_i] 68 [in_i] eCW1 ([facility]) Body weight 182.4 [lb_av] 182.4 [lb_av] eCW1 ([facility]) Body mass index (BMI) [Ratio] 27.73 kg/m2 27.73 kg/m2 eCW1 ([facility]) Body temperature 98.4 [degF] 98.4 [degF] eCW1 ( [facility]) Heart rate 78 /min 78 /min eCW1 ([facility]) Respiratory rate 18 /min 18 /min eCW1 ([facility]) Oxygen saturation in Arterial blood by Pulse oximetry 98 % 98 % eCW1 ([facility]) ID Date Data Source [id number] 03/22/2021 08:28:35 PM EDT [facility] Name Value Range Interpretation Code Description Data Source(s) TRANSFER FROM [facility] Patient Treatment Plan of Care Planned Activity Planned Date Details Description Data Source (s) Acetaminophen 325 MG / Hydrocodone Bitartrate 7.5 MG O ral Tablet 05/04/2021 12:00:00 AM EDT [facility] Misoprostol 0.2 MG Oral Tablet 05/04/2021 12:00:00 AM EDT [facility] Methylcellulose 500 MG Oral Tablet 03/27/2021 12:00:00 AM EDT [facility] Lactobacillus rhamnosus GG [id number] UNT Oral Capsul e 03/27/2021 12:00:00 AM EDT [facility] brexpiprazole 2 MG Oral Tablet [Rexulti] 03/19/2021 12:00:00 AM EDT eCW1 ([facility]) brexpiprazole 2 MG Oral Tablet [Rexulti] 03/19/2021 12:00:00 AM EDT eCW1 ([facility]) brexpiprazole 2 MG Oral Tablet [Rexulti] 03/19/2021 12:00:00 AM EDT eCW1 ([facility]) brexpiprazole 1 MG Oral Tablet [Rexulti] 03/19/2021 12:00:00 AM EDT eCW1 ([facility]) brexpiprazole 1 MG Oral Tablet [Rexulti] 03/19/2021 12:00:00 AM EDT eCW1 ([facility]) brexpiprazole 1 MG Oral Tablet [Rexulti] 03/19/2021 12:00:00 AM EDT eCW1 ([facility]) brexpiprazole 1 MG Oral Tablet [Rexulti] 03/19/2021 12:00:00 AM EDT eCW1 ([facility]) [place] Carbonate 300 MG Oral Capsule 02/13/2021 12:00:00 AM EDT eCW1 ([facility]) Prazosin 1 MG Oral Capsule 02/13/2021 12:00:00 AM EDT eCW1 ([facility]) Levothyroxine Sodium 0.025 MG Oral Tablet 01/29/2021 12:00:00 AM ED T eCW1 ([facility]) 0.3 ML Epinephrine 1 MG/ML Auto-Injector [Epipen] 01/29/2021 12: 00:00 AM EDT eCW1 ([facility]) Levothyroxine Sodium 0.025 MG Oral Tablet 01/29/2021 12:00:00 AM ED T eCW1 ([facility]) 0.3 ML Epinephrine 1 MG/ML Auto-Injector [Epipen] 01/29/2021 12: 00:00 AM EDT eCW1 ([facility]) Levothyroxine Sodium 0.025 MG Oral Tablet 01/29/2021 12:00:00 AM ED T eCW1 ([facility]) 0.3 ML Epinephrine 1 MG/ML Auto-Injector [Epipen] 01/29/2021 12: 00:00 AM EDT eCW1 ([facility]) Misoprostol 0.2 MG Oral Tablet 08/04/2019 12:00:00 AM [facility] ferrous sulfate 325 MG Oral Tablet [facility] gabapentin 600 MG Oral Tablet [facility] quetiapine 25 MG Oral Tablet [Seroquel] DAVID ([facility]) Mirtazapine 15 MG Oral Tablet [Remeron] DAVID ([facility]) OneTouch Delica Lancets ATHE NA ([facility]) One Touch II Test strips ATH TENZIN ([facility]) [place] Carbonate 300 MG Oral Capsule DAVID ([facility]) Hair, Skin and Nails Advanced DAVID ([facility]) Biotin 10 MG Oral Tablet ATH TENZIN ([facility]) quetiapine 25 MG Oral Tablet [Seroquel] DAVID ([facility]) Mirtazapine 15 MG Oral Tablet [Remeron] DAVID ([facility]) OneTouch Delica Lancets ATHE NA ([facility]) One Touch II Test strips ATH TENZIN ([facility]) [place] Carbonate 300 MG Oral Capsule DAVID ([facility]) Hair, Skin and Nails Advanced DAVID ([facility]) Biotin 10 MG Oral Tablet ATH TENZIN ([facility])
--- OUTSIDE RECORDS SUMMARY | 2021-05-25 22:41 | CCD ---
Author Author [facility] Organization [facility] Address Unknown Phone Unavailable Care Team Providers Care Hog Cutter Name Role Phone Pam Baires Unavailable Pam [...] M Abida PA-C Unavailable Unavailable Jason, M Aibda PA-C Unavailable Unavailable Jason, M Abida PA-C [...] PAN, RASHAWN MADIHA PA Unavailable Unavailable PAN, RAHSAWN MADIHA PA Unavailable Unavailable PAN, RASHAWN MADIHA [...] Unavailable Unavailable Dean Willard MD Unavailable Unavailable eDan Willard MD Unavailable Unavailable Dean Willard MD [...] Unavailable PATI, CAMILA DO Unavailable Unavailable PATI, CAMLIA DO Unavailable Unavailable PATI, CAMILA DO Unavailable [...] Unavailable PATI, CAMILA DO Unavailable Unavailable PATI, CAMLIA DO Unavailable Unavailable PATI, CAMILA DO Unavailable [...] Unavailable MORAES, EDIS FABIEN RPA-C Unavailable Unavailable MOARES, EDIS FABIEN RPA-C Unavailable Unavailable MORAES, EDIS FABIEN RPA-C Unavailable Unavailable MORAES, EDIS FABIEN RPA-C Unavailable Unavailable MORAES, EDIS FABIEN RPA-C Unavailable Unavailable MORAES, EDIS FABIEN RPA-C Unavailable Unavailable MORAES, EDIS FABIEN RPA-C Unavailable Unavailable MORAES, EDIS FABIEN RPA-C Unavailable Unavailable MORAES, EDIS FABIEN RPA-C Unavailable Unavailable MORAES, EDIS FBAIEN RPA-C Unavailable Unavailable MORAES, EDIS FABIEN RPA-C [...] Unavailable QAMAR, KRANTHI JUVE PA-C Unavailable Unavailable QAMRA, KRANTHI JUVE PA-C Unavailable Unavailable QAMAR, KRANTHI [...] is protected by Article 27-F of the [facility] Public Health law. If you continue you may have access to information: Regarding HIV / AIDS; Provided by facilities licensed or operated by the [facility] Office of Mental Health; or Provided by the [facility] Office for People With Developmental Disabilities. If such information is present, then the following [facility] mandated warning applies: This information [...] law may result in a fine or long term sentence or both. A general authorization for the release of medical or other information is NOT sufficient authorization for further disc losure. Allergies and Adverse Reactions Type Description Substance Reaction Status Data Source(s ) Propensity to adverse reactions NO ALLERGIES ON FILE NO ALLERGIES ON FILE [facility] Propensity to adverse reactions LEVONORGESTREL-ETHINYL ESTRA D LEVONORGESTREL- ETHINYL ESTRAD Unknown [facility] Propensity to adverse reactions BEE VENOM PROTEIN (HONEY BEE) Ho huseyin bee venom Unknown [facility] Propensity to adverse reactions RIZATRIPTAN rizatriptan Swelling High [facility] Propensity to adverse reactions AMITRIPTYLINE Amitriptyline Swelling High [facility] Allergy to substance Severe Amitriptyline Hallucinations DAVID ([facility]) Allergy to substance Severe Amitriptyline Hallucinations DAVID ([facility]) Family History Family Member Name Family Member Gender Family Member Status Date o f Status Description Data Source(s) Unknown Female Condition Family Member Diabetes B on [facility] Unknown Female Condition Family Member Cancer B on [facility] Unknown Female Condition Family Member Hypertension Bon [facility] Unknown Female Problem MEDENT ([facility]) Encounters Encounter Providers Location Date Indications Data Source(s ) Outpatient Attender: GWEN DEVINEW [facility] 05/21/2021 10:00: 00 AM T [facility] Outpatient Attender: Ragini Watts 05/20/2021 01:00:00 PM EDT [facility] Outpatient [facility] 05/16/2021 12:00:00 AM EDT eCW1 ([facility]) Outpatient Attender: GWEN DEVIRUTH 05/05/2021 02:00: 00 PM EDT [facility] Outpatient [facility] 05/05/2021 12:00:00 AM EDT eCW1 ([facility]) Outpatient [facility] 05/05/2021 12:00:00 AM EDT eCW1 ([facility]) INPATIENT Attender: Jonn Conrad MDAttflores leo: CAMILA KRUEGER DOAttender: SANDEEP BAZAN MDAdmitter: SANDEEP BAZAN MDConsultant: Kashif Aguilar JrConsultant: Rashawn Lowry MD 5F-[id number] 05/01/2021 10:26:00 PM EDT - 05/04/2021 04:32:00 PM EDT [facility] Patient discharged. INPATIENT Attender: JEFE Reardon leo: Jonn Conrad MDAttender: Cari De Souza MDAttender: CARI DE SOUZA MDAdmitter: Jonn Conrad MDConsultant: Rahsawn Lowry MDConsultant: ANAYELI BADILLO IIConsultant: ANAYELI BADILLO II MDConsultant: Kevin Cervantes 5F-1E 04/25/2021 12:14:00 PM EDT - 04/28/2021 06:00:00 PM EDT [facility] Patient discharged. Emergency Attender: MADIHA PERLA PAReferrer: Ventura Gomez PA-C EMERGENCY ROOM-ER 04/24/2021 11:49:00 PM EDT - 04/25/2021 09:55:00 AM EDT [facility] Patient discharged. Outpatient Attender: ASHOK DEAL 04/20/2021 04:35:45 PM EDT [facility] Outpatient [facility] 04/15/2021 12:00:00 AM EDT eCW1 ([facility]) Emergency Attender: Harley Sherwoodferrer: Scott Gomez PA-C EMERGENCY ROOM-ER 04/12/2021 09:19:00 PM EDT - 04/13/2021 01:29:00 AM EDT [facility] Patient discharged. Outpatient Attender: Harley AGUILARCConsultant: [facility] [id number] 04/12/2021 09:06:00 PM EDT [facility] Outpatient Attender: GWEN JEAN FPRUTH 04/09/2021 10:00: 00 AM EDT [facility] David Willard MD: [id number], [place] [address], Ph. Attender: David Willard MD [place] [facility] - [facility] 04/07/2021 12:00:00 AM EDT DAVID ([facility]) David Willard MD: [id number], [place] [address], Ph. [phone] Attender: [place] Willard MD [place] [facility] 04/02/2021 12:00:00 AM EDT DAVID ([facility]) Outpatient [facility] 03/28/2021 12:00:00 AM EDT eCW ([facility]) Outpatient [facility] 03/28/2021 12:00:00 AM EDT eCW ([facility]) INPATIENT Attender: FREDERICK GOODWIN MD [id number] 03/26/2021 05:43:40 PM EDT [facility] INPATIENT Attender: BRAYAN ALLISON MD [id number] 03/25/2021 09:53:3 9 AM EDT [facility] INPATIENT Attender: CARI DE SOUZA MDA ttender: Cari De Souza MDAttender: WINSTON QUIROGA MDAttender: Jonn Conrad MDAttender: MARTIN SIBLEY MDAttender: Martin Sibley MDAdmitter: Jonn Conrad MDConsultant: Rashawn Lowry MDConsultant: Kevin Cervantes 5F-1E 03/23/2021 03:25:00 PM E DT - 03/27/2021 04:11:00 PM EDT [facility] Patient discharged. Outpatient [id number] 03/22/2021 08:11:00 PM EDT [facility] Emergency Attender: WILLIE Lozada: Scott Gomez PA-C EMERGENCY ROOM-ER 03/22/2021 03:34:00 PM EDT - 03/23/2021 12:40:00 PM EDT [facility] Patient discharged. Outpatient Attender: GWEN JEAN FPRUTH 03/19/2021 09:49: 00 AM EDT [facility] Outpatient Attender: Abida Sherwoodferrer: Abida Gomez PA-C 03/19/2021 08:00:00 AM EDT [facility] David Willard MD: [id number], [place] [address], Ph. Attender: David Willard MD [place] [facility] - Main Office 03/18/2021 12:00:00 AM EDT DAVID ([facility]) David Willard MD: [id number], [address], [place] [address], Ph. Attender: David Willard MD [place] [facility] Office 03/18/2021 12:00:00 AM EDT DAVID ([facility]) Preadmit Attender: Abida Gomez PA-C 03/14/2021 08:00 :00 AM EDT [facility] Outpatient [facility] 03/12/2021 12:00:00 AM EDT eCW1 ([facility]) Outpatient [facility] 03/11/2021 12:00:00 AM EDT eCW1 ([facility]) Outpatient Attender: GWEN CHINReferrer: Ventura Gomez PA-C EMERGENCY ROOM-LAB 03/10/2021 03:46:00 PM EDT - 03/10/2021 03:46:00 PM EDT [facility] Outpatient Attender: Abida Sherwoodferrer: Abida Gomez PA-C EMERGENCY ROOM-RIVCLI 03/10/2021 02:37:00 PM EDT - 03/10/2021 02:37:00 PM EDT [facility] Outpatient [facility] 03/10/2021 12:00:00 AM EDT eCW1 ([facility]) Outpatient [facility] 03/03/2021 12:00:00 AM EDT eCW1 ([facility]) Outpatient Attender: GWEN CHIN 02/13/2021 01:00: 00 PM EDT [facility] Outpatient [facility] 02/11/2021 12:00:00 AM EDT eCW1 ([facility]) Outpatient [facility] 02/04/2021 12:00:00 AM EDT eCW1 ([facility]) Outpatient Attender: JUVE FOOTE PA-C 01/31/2021 11:00:00 AM EDT [facility] Outpatient [facility] 01/30/2021 12:00:00 AM EDT eCW1 ([facility]) Outpatient [facility] 01/30/2021 12:00:00 AM EDT eCW1 ([facility]) Outpatient Attender: Pam Daniels: [facility] EMERGENCY ROOM-[facility] 01/29/2021 01:00:00 PM EDT - 01/29/2021 01:00:00 PM EDT [facility] Outpatient Attender: Ragini Watts 01/29/2021 10:00:00 AM EDT [facility] Outpatient [facility] 01/29/2021 12:00:00 AM EDT eCW1 ([facility]) Outpatient [facility] 01/22/2021 12:00:00 AM EDT eCW1 ([facility]) Outpatient [facility] 01/21/2021 12:00:00 AM EDT eCW1 ([facility]) Outpatient [facility] 01/16/2021 12:00:00 AM EDT eCW1 ([facility]) Outpatient Attender: Pam Daniels: FABIEN SONI RPA-C EMERGENCY ROOM-RIVCLI 01/15/2021 08:03:00 AM EDT - 01/15/2021 08:03:00 AM EDT [facility] Outpatient [facility] 01/15/2021 12:00:00 AM EDT eCW1 ([facility]) Outpatient [facility] 01/15/2021 12:00:00 AM EDT eCW1 ([facility]) Emergency Attender: WILLIE Lozada: [facility] EMERGENCY ROOM-ER 06/04/2019 12:15:00 PM EDT - 06/04/2019 03:18:00 PM [facility] Patient discharged. Emergency Attender: DENNISE CISNEROSeferrer: ALEK [facility] EMERGENCY ROOM-ER 05/10/2019 06:22:00 AM EDT - 05/10/2019 11:00:00 AM [facility] Patient discharged. Emergency Attender: MADIHA MANUEL EMERGENCY ROOM-ER 01/17/2018 12:13:00 AM EDT - 01/17/2018 02:40:00 AM [facility] Emergency Attender: MADIHA MANUEL EMERGENCY ROOM-ER 11/22/2017 09:40:00 PM EDT - 11/23/2017 02:25:00 AM [facility] Emergency Attender: WILLIE MANUEL EMERGENCY ROOM-ER 11/07 02:49:00 PM EDT - 11/19/2017 05:38:00 PM [facility] Emergency Attender: DENNISE MANUEL EMERGENCY ROOM-ER 08:49:00 PM EST - 09/30/2017 12:27:00 AM [facility] Outpatient Attender: FABIEN HEART EMERGENCY ROOM-LAB 0 08/25/2017 04:16:00 PM EST - 08/25/2017 04:16:00 PM [facility] Emergency Attender: OSKAR MANUEL EMERGENCY ROOM- ER 04/13/2017 09:15:00 PM EDT - 04/14/2017 01:54:00 AM [facility] Emergency Attender: DENNISE MANUEL EMERGENCY ROOM-ER 09:02:00 PM EDT - 03/21/2017 01:55:00 AM [facility] Emergency Attender: MADIHA MANUEL EMERGENCY ROOM-ER 12/30/2016 09:12:00 PM EDT - 12/31/2016 01:50:00 AM [facility] Medications Medication Brand Name Start Date Product [...] severe pain for up to 3 doses. [facility] Misoprostol 0.2 MG Oral Tablet miSOPROStoL (CYTOTEC) 2 00 mcg tablet miSOPROStoL (CYTOTEC) 200 mcg tablet 05/04/2021 12:00:00 AM EDT 200 ug oral active Take 1 tablet (200 mcg total) by mouth 4 (four) times a day. [facility] Methylcellulose 500 MG Oral Tablet methy lcellulose, laxative, (CITRUCEL) 500 mg tablet methylcellulose, laxative, (CITRUCEL) 500 mg tablet 12:00:00 AM EDT 1000 mg oral aborted Take 2 t ablets (1,000 mg total) by mouth 2 (two) times a day. [facility] Lactobacillus rhamnosus GG [id number] U NT Oral Capsule lactobacillus rhamnosus (PROBIOTIC EXTRA STRENGTH) 20 billion cell capsule lactobacillus rhamnosus (PROBIOTIC EXTRA STRENGTH) 20 billion cell capsule 03/27/2021 12:00:00 AM EDT 1 {capsule} oral aborted Take 1 capsule by [facility] 1 (one) time each day. [facility] brexpiprazole 1 MG Oral Tablet [Rexulti] Rexulti 1 MG Rexult i 1 MG 03/19/2021 12:00:00 AM EDT 1.0 {tablet} active Re xulti 1 MG eCW1 ([facility]) brexpiprazole 2 MG Oral Tablet [Rexulti] Rexulti 2 MG Rexult i 2 MG 03/19/2021 12:00:00 AM EDT 1.0 {tablet} active Re xulti 2 MG eCW1 ([facility]) brexpiprazole 1 MG Oral Tablet [Rexulti] Rexulti 1 MG Rexult i 1 MG 03/19/2021 12:00:00 AM EDT 1.0 {tablet} active Re xulti 1 MG eCW1 ([facility]) brexpiprazole 1 MG Oral Tablet [Rexulti] Rexulti 1 MG Rexult i 1 MG 03/19/2021 12:00:00 AM EDT 1.0 {tablet} active Re xulti 1 MG eCW1 ([facility]) brexpiprazole 1 MG Oral Tablet [Rexulti] Rexulti 1 MG Rexult i 1 MG 03/19/2021 12:00:00 AM EDT 1.0 {tablet} active Re xulti 1 MG eCW1 ([facility]) brexpiprazole 2 MG Oral Tablet [Rexulti] Rexulti 2 MG Rexult i 2 MG 03/19/2021 12:00:00 AM EDT 1.0 {tablet} active Re xulti 2 MG eCW1 ([facility]) brexpiprazole 2 MG Oral Tablet [Rexulti] Rexulti 2 MG Rexult i 2 MG 03/19/2021 12:00:00 AM EDT 1.0 {tablet} active Re xulti 2 MG eCW1 ([facility]) brexpiprazole 1 MG Oral Tablet [Rexulti] Rexulti 1 MG Rexult i 1 MG 03/19/2021 12:00:00 AM EDT 1.0 {tablet} active Re xulti 1 MG eCW1 ([facility]) Maribel Carbonate 300 MG Oral Capsule Maribel Carbonate 300 MG 02/13/2021 12:00:00 AM EDT 1.0 {capsule} suspended Maribel Carbonate 300 MG eCW1 ([facility]) Maribel Carbonate 300 MG Oral Capsule Maribel Carbonate 300 MG 02/13/2021 12:00:00 AM EDT 1.0 {capsule} suspended Maribel Carbonate 300 MG eCW1 ([facility]) Prazosin 1 MG Oral Capsule Prazosin HCl 1 MG Prazosin HCl 1 MG 02/13/2021 12:00:00 AM EDT 1.0 {capsule_at_bedtime} active Prazosin HCl 1 MG eCW1 ([facility]) Maribel Carbonate 300 MG Oral Capsule Maribel Carbonate 300 MG 02/13/2021 12:00:00 AM EDT 1.0 {capsule} suspended Maribel Carbonate 300 MG eCW1 ([facility]) Prazosin 1 MG Oral Capsule Prazosin HCl 1 MG Prazosin HCl 1 MG 02/13/2021 12:00:00 AM EDT 1.0 {capsule_at_bedtime} active Prazosin HCl 1 MG eCW1 ([facility]) Maribel Carbonate 300 MG Oral Capsule Maribel Carbonate 300 MG 02/13/2021 12:00:00 AM EDT 1.0 {capsule} active L ithium Carbonate 300 MG eCW1 ([facility]) Maribel Carbonate 300 MG Oral Capsule Maribel Carbonate 300 MG 02/13/2021 12:00:00 AM EDT 1.0 {capsule} active L ithium Carbonate 300 MG eCW1 ([facility]) Prazosin 1 MG Oral Capsule Prazosin HCl 1 MG Prazosin HCl 1 MG 02/13/2021 12:00:00 AM EDT 1.0 {capsule_at_bedtime} active Prazosin HCl 1 MG eCW1 ([facility]) Maribel Carbonate 300 MG Oral Capsule Maribel Carbonate 300 MG 02/13/2021 12:00:00 AM EDT 1.0 {capsule} suspended Maribel Carbonate 300 MG eCW1 ([facility]) Prazosin 1 MG Oral Capsule Prazosin HCl 1 MG Prazosin HCl 1 MG 02/13/2021 12:00:00 AM EDT 1.0 {capsule_at_bedtime} active Prazosin HCl 1 MG eCW1 ([facility]) Prazosin 1 MG Oral Capsule Prazosin HCl 1 MG Prazosin HCl 1 MG 02/13/2021 12:00:00 AM EDT 1.0 {capsule_at_bedtime} active Prazosin HCl 1 MG eCW1 ([facility]) Prazosin 1 MG Oral Capsule Prazosin HCl 1 MG Prazosin HCl 1 MG 02/13/2021 12:00:00 AM EDT 1.0 {capsule_at_bedtime} active Prazosin HCl 1 MG eCW1 ([facility]) Maribel Carbonate 300 MG Oral Capsule Maribel Carbonate 300 MG 02/13/2021 12:00:00 AM EDT 1.0 {capsule} suspended Maribel Carbonate 300 MG eCW1 ([facility]) Prazosin 1 MG Oral Capsule Prazosin HCl 1 MG Prazosin HCl 1 MG 02/13/2021 12:00:00 AM EDT 1.0 {capsule_at_bedtime} active Prazosin HCl 1 MG eCW1 ([facility]) Maribel Carbonate 300 MG Oral Capsule Maribel Carbonate 300 MG 02/13/2021 12:00:00 AM EDT 1.0 {capsule} suspended Maribel Carbonate 300 MG eCW1 ([facility]) Prazosin 1 MG Oral Capsule Prazosin HCl 1 MG Prazosin HCl 1 MG 02/13/2021 12:00:00 AM EDT 1.0 {capsule_at_bedtime} active Prazosin HCl 1 MG eCW1 ([facility]) Prazosin 1 MG Oral Capsule Prazosin HCl 1 MG Prazosin HCl 1 MG 02/13/2021 12:00:00 AM EDT 1.0 {capsule_at_bedtime} active Prazosin HCl 1 MG eCW1 ([facility]) Prazosin 1 MG Oral Capsule Prazosin HCl 1 MG Prazosin HCl 1 MG 02/13/2021 12:00:00 AM EDT 1.0 {capsule_at_bedtime} active Prazosin HCl 1 MG eCW1 ([facility]) Maribel Carbonate 300 MG Oral Capsule Maribel Carbonate 300 MG 02/13/2021 12:00:00 AM EDT 1.0 {capsule} suspended Maribel Carbonate 300 MG eCW1 ([facility]) Maribel Carbonate 300 MG Oral Capsule Maribel Carbonate 300 MG 02/13/2021 12:00:00 AM EDT 1.0 {capsule} suspended Maribel Carbonate 300 MG eCW1 ([facility]) Prazosin 1 MG Oral Capsule Prazosin HCl 1 MG Prazosin HCl 1 MG 02/13/2021 12:00:00 AM EDT 1.0 {capsule_at_bedtime} active Prazosin HCl 1 MG eCW1 ([facility]) Maribel Carbonate 300 MG Oral Capsule Maribel Carbonate 300 MG 02/13/2021 12:00:00 AM EDT 1.0 {capsule} suspended Maribel Carbonate 300 MG eCW1 ([facility]) 0.3 ML Epinephrine 1 MG/ML Auto-Injector [Epipen] EpiP en 2-Jacquelyn 0.3 MG/0.3ML EpiPen 2-Jacquelyn 0.3 MG/0.3ML 01/29/2021 12:00:00 AM EDT active EpiPen 2-Jacquelyn 0.3 MG/0.3ML eCW1 ([facility] [place]) 0.3 ML Epinephrine 1 MG/ML Auto-Injector [Epipen] EpiP en 2-Jacquelyn 0.3 MG/0.3ML EpiPen 2-Jacquelyn 0.3 MG/0.3ML 01/29/2021 12:00:00 AM EDT active EpiPen 2-Jacquelyn 0.3 MG/0.3ML eCW1 ([facility]) Levothyroxine Sodium 0.025 MG Oral Tablet Levothyroxin e Sodium 25 MCG Levothyroxine Sodium 25 MCG 01/29/2021 12:00:00 AM EDT active Levothyroxine Sodium 25 MCG eCW1 ([facility]) Levothyroxine Sodium 0.05 MG Oral Tablet Levothyroxine Sodium 50 MCG Levothyroxine Sodium 50 MCG 01/29/2021 12:00:00 AM EDT active Levothyroxine Sodium 50 MCG eCW1 ([facility]) Levothyroxine Sodium 0.025 MG Oral Tablet Levothyroxin e Sodium 25 MCG Levothyroxine Sodium 25 MCG 01/29/2021 12:00:00 AM EDT active Levothyroxine Sodium 25 MCG eCW1 ([facility]) Levothyroxine Sodium 0.025 MG Oral Tablet Levothyroxin e Sodium 25 MCG Levothyroxine Sodium 25 MCG 01/29/2021 12:00:00 AM EDT active Levothyroxine Sodium 25 MCG eCW1 ([facility]) 0.3 ML Epinephrine 1 MG/ML Auto-Injector [Epipen] EpiP en 2-Jacquelyn 0.3 MG/0.3ML EpiPen 2-Jacquelyn 0.3 MG/0.3ML 01/29/2021 12:00:00 AM EDT active EpiPen 2-Jacquelyn 0.3 MG/0.3ML eCW1 ([facility]) 0.3 ML Epinephrine 1 MG/ML Auto-Injector [Epipen] EpiP en 2-Jacquelyn 0.3 MG/0.3ML EpiPen 2-Jacquelyn 0.3 MG/0.3ML 01/29/2021 12:00:00 AM EDT active EpiPen 2-Jacquelyn 0.3 MG/0.3ML eCW1 ([facility]) Levothyroxine Sodium 0.025 MG Oral Tablet Levothyroxin e Sodium 25 MCG Levothyroxine Sodium 25 MCG 01/29/2021 12:00:00 AM EDT active Levothyroxine Sodium 25 MCG eCW1 ([facility]) 0.3 ML Epinephrine 1 MG/ML Auto-Injector [Epipen] EpiP en 2-Jacquelyn 0.3 MG/0.3ML EpiPen 2-Jacquelyn 0.3 MG/0.3ML 01/29/2021 12:00:00 AM EDT active EpiPen 2-Jacquelyn 0.3 MG/0.3ML eCW1 ([facility]) 0.3 ML Epinephrine 1 MG/ML Auto-Injector [Epipen] EpiP en 2-Jacquelyn 0.3 MG/0.3ML EpiPen 2-Jacquelyn 0.3 MG/0.3ML 01/29/2021 12:00:00 AM EDT active EpiPen 2-Jacquelyn 0.3 MG/0.3ML eCW1 ([facility]) 0.3 ML Epinephrine 1 MG/ML Auto-Injector [Epipen] EpiP en 2-Jacquelyn 0.3 MG/0.3ML EpiPen 2-Jacquelyn 0.3 MG/0.3ML 01/29/2021 12:00:00 AM EDT active EpiPen 2-Jacquelyn 0.3 MG/0.3ML eCW1 ([facility]) 0.3 ML Epinephrine 1 MG/ML Auto-Injector [Epipen] EpiP en 2-Jacquelyn 0.3 MG/0.3ML EpiPen 2-Jacquelyn 0.3 MG/0.3ML 01/29/2021 12:00:00 AM EDT active EpiPen 2-Jacquelyn 0.3 MG/0.3ML eCW1 ([facility]) 0.3 ML Epinephrine 1 MG/ML Auto-Injector [Epipen] EpiP en 2-Jacquelyn 0.3 MG/0.3ML EpiPen 2-Jacquelyn 0.3 MG/0.3ML 01/29/2021 12:00:00 AM EDT active EpiPen 2-Jacquelyn 0.3 MG/0.3ML eCW1 ([facility]) 0.3 ML Epinephrine 1 MG/ML Auto-Injector [Epipen] EpiP en 2-Jacquelyn 0.3 MG/0.3ML EpiPen 2-Jacquelyn 0.3 MG/0.3ML 01/29/2021 12:00:00 AM EDT active EpiPen 2-Jacquelyn 0.3 MG/0.3ML eCW1 ([facility]) 0.3 ML Epinephrine 1 MG/ML Auto-Injector [Epipen] EpiP en 2-Jacquelyn 0.3 MG/0.3ML EpiPen 2-Jacquelyn 0.3 MG/0.3ML 01/29/2021 12:00:00 AM EDT active EpiPen 2-Jacquelyn 0.3 MG/0.3ML eCW1 ([facility]) Levothyroxine Sodium 0.05 MG Oral Tablet Levothyroxine Sodium 50 MCG Levothyroxine Sodium 50 MCG 01/29/2021 12:00:00 AM EDT active Levothyroxine Sodium 50 MCG eCW1 ([facility]) 0.3 ML Epinephrine 1 MG/ML Auto-Injector [Epipen] EpiP en 2-Jacquelyn 0.3 MG/0.3ML EpiPen 2-Jacquelyn 0.3 MG/0.3ML 01/29/2021 12:00:00 AM EDT active EpiPen 2-Jacquelyn 0.3 MG/0.3ML eCW1 ([facility]) 0.3 ML Epinephrine 1 MG/ML Auto-Injector [Epipen] EpiP en 2-Jacquelyn 0.3 MG/0.3ML EpiPen 2-Jacquelyn 0.3 MG/0.3ML 01/29/2021 12:00:00 AM EDT active EpiPen 2-Jacquelyn 0.3 MG/0.3ML eCW1 ([facility]) Levothyroxine Sodium 0.025 MG Oral Tablet Levothyroxin e Sodium 25 MCG Levothyroxine Sodium 25 MCG 01/29/2021 12:00:00 AM EDT active Levothyroxine Sodium 25 MCG eCW1 ([facility]) 0.3 ML Epinephrine 1 MG/ML Auto-Injector [Epipen] EpiP en 2-Jacquelyn 0.3 MG/0.3ML EpiPen 2-Jacquelyn 0.3 MG/0.3ML 01/29/2021 12:00:00 AM EDT active EpiPen 2-Jacquelyn 0.3 MG/0.3ML eCW1 ([facility] [place]) Levothyroxine Sodium 0.05 MG Oral Tablet Levothyroxine Sodium 50 MCG Levothyroxine Sodium 50 MCG 01/29/2021 12:00:00 AM EDT active Levothyroxine Sodium 50 MCG eCW1 ([facility] [place]) Levothyroxine Sodium 0.025 MG Oral Tablet Levothyroxin e Sodium 25 MCG Levothyroxine Sodium 25 MCG 01/29/2021 12:00:00 AM EDT active Levothyroxine Sodium 25 MCG eCW1 ([facility] [place]) Levothyroxine Sodium 0.05 MG Oral Tablet Levothyroxine Sodium 50 MCG Levothyroxine Sodium 50 MCG 01/29/2021 12:00:00 AM EDT active Levothyroxine Sodium 50 MCG [facility] 0.3 ML Epinephrine 1 MG/ML Auto-Injector [Epipen] EpiP en 2-Jacquelyn 0.3 MG/0.3ML EpiPen 2-Jacquelyn 0.3 MG/0.3ML 01/29/2021 12:00:00 AM EDT active EpiPen 2-Jacquelyn 0.3 MG/0.3ML eCW1 ([facility] [place]) Levothyroxine Sodium 0.05 MG Oral Tablet Levothyroxine Sodium 50 MCG Levothyroxine Sodium 50 MCG 01/29/2021 12:00:00 AM EDT active Levothyroxine Sodium 50 MCG eCW1 ([facility] [place]) Levothyroxine Sodium 0.05 MG Oral Tablet Levothyroxine Sodium 50 MCG Levothyroxine Sodium 50 MCG 01/29/2021 12:00:00 AM EDT active Levothyroxine Sodium 50 MCG eCW1 ([facility]) Levothyroxine Sodium 0.05 MG Oral Tablet Levothyroxine Sodium 50 MCG Levothyroxine Sodium 50 MCG 01/29/2021 12:00:00 AM EDT active Levothyroxine Sodium 50 MCG eCW1 ([facility]) Levothyroxine Sodium 0.05 MG Oral Tablet Levothyroxine Sodium 50 MCG Levothyroxine Sodium 50 MCG 01/29/2021 12:00:00 AM EDT active Levothyroxine Sodium 50 MCG eCW1 [facility] Levothyroxine Sodium 0.025 MG Oral Tablet Levothyroxin e Sodium 25 MCG Levothyroxine Sodium 25 MCG 01/29/2021 12:00:00 AM EDT active Levothyroxine Sodium 25 MCG eCW1 ([facility]) tizanidine 4 MG Oral Capsule tizanidine (ZANAFLEX) 4 M G capsule tizanidine (ZANAFLEX) 4 MG capsule 11/20/2019 12:00:00 AM EDT 4 mg Oral completed Right leg paresthesiasChronic right-sided low back pain with right-sided sciatica Take 1 capsule by mouth 3 (three) times daily. [facility] Right leg paresthesias Chronic right-sided low back pain with r ight-sided sciatica Take 1 capsule by mouth 3 (three) times daily. Misoprostol 0.2 MG Oral Tablet miSOPROStol 200 MCG Ora l Tablet (CYTOTEC) miSOPROStol 200 MCG Oral Tablet (CYTOTEC) 08/04/2019 12:00:00 AM EST 200 ug Oral active Take 1 tablet by anna th every 6 (six) hours [facility] Advanced co mpleted Hair, Skin and Nails Advanced DAVID ([facility]) quetiapine 25 MG Oral Tablet [Seroquel] Seroquel 25 mg tablet Take 1 tablet twice a day by oral route. Seroquel 25 mg tablet Take 1 tablet twic e a day by oral route. 1 completed quetiapine 25 MG Oral Tablet [Seroquel] DAVID ([facility]) OneTouch Delica Lancets completed OneTouch Delica Lancets DAVID ([facility]) One Touch II Test strips [id number] [facility] One Touch II Test strips DAVID ([facility]) gabapentin 600 MG Oral Tablet gabapentin (NEURONTIN) 6 00 mg tablet gabapentin (NEURONTIN) 600 mg tablet 1200 mg oral aborted Take 1,200 mg by mouth 3 (three) times a day. [facility] ferrous sulfate 325 MG Oral Tablet ferrous sulfate 325 mg (65 mg iron) tablet ferrous sulfate 325 mg (65 mg iron) tablet 325 mg oral aborted Take 325 mg by mouth 1 (one) time each day with breakfast. [facility] One Touch II Test strips [id number] [facility] One Touch II Test strips DAVID ([facility]) Maribel Carbonate 300 MG Oral Capsule li thium carbonate 300 mg capsule Take 1 capsule 3 times a day by oral route. lithium carbonate 300 mg capsule Take 1 capsule 3 times a day by oral route. 1 capsule(s) completed lithium carbonate 300 MG Oral Capsule DAVID ([facility]) Mirtazapine 15 MG Oral Tablet [Remeron] Remeron 15 mg tablet Take 1 tablet every day by oral route. Remeron 15 mg tablet Take 1 tablet every day by oral r oute. 1 completed mirtazapine 15 MG Oral Tablet [Remeron] DAVID ([facility]) OneTouch Delica Lancets completed OneTouch Delica Lancets DAVID ([facility]) Biotin 10 MG Oral Tablet biotin 10 mg ta blet Take 1 tablet every day by oral route. biotin 10 mg tablet Take 1 tablet every day by oral route. 1 completed biotin 10 MG Oral Tablet DAVID ([facility]) Maribel Carbonate 300 MG Oral Capsule li thium carbonate 300 mg capsule Take 1 capsule 3 times a day by oral route. lithium carbonate 300 mg capsule Take 1 capsule 3 times a day by oral route. 1 capsule(s) completed lithium carbonate 300 MG Oral Capsule DAVID ([facility]) quetiapine 25 MG Oral Tablet [Seroquel] Seroquel 25 mg tablet Take 1 tablet twice a day by oral route. Seroquel 25 mg tablet Take 1 tablet twic e a day by oral route. 1 completed quetiapine 25 MG Oral Tablet [Seroquel] DAVID ([facility]) Biotin 10 MG Oral Tablet biotin 10 mg ta blet Take 1 tablet every day by oral route. biotin 10 mg tablet Take 1 tablet every day by oral route. 1 completed biotin 10 MG Oral Tablet DAVID ([facility]) Mirtazapine 15 MG Oral Tablet [Remeron] Remeron 15 mg tablet Take 1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 DIFFERENTIAL</td><td>Routine</td><td>04/26/2021 4:36 AM EDT</td><td></td><td> </td> 04/26/2021 04:36:00 AM EDT [facility] MAGNESIUM <td>MAGNESIUM</td><td>Routin e</td><td>04/26/2021 4:36 AM EDT</td><td></td><td> </td> 04/26/2021 04:36:00 AM EDT [facility] COMPREHENSIVE METABOLIC PANEL <td>COMPREHENSIVE METABO LIC PANEL</td><td>Routine</td><td>04/26/2021 4:36 AM EDT</td><td></td><td> </td> 04/26/2021 04:36:00 AM EDT [facility] POCT GLUCOSE METER UNSOLICITED RESULTS <td>POCT GLUCOS E METER UNSOLICITED RESULTS</td><td>Routine</td><td>04/25/2021 11:19 PM EDT</td><td></td><td> </td> 04/25/2021 11:19:00 PM EDT [facility] URNLS DIP STICK/TABLET RGNT AUTO W/O MICROSCOPY <td><c ontent ID="[id number]">URINALYSIS W/MICROSCOPIC & CULTURE IF INDICATED</content></td><td>STAT</td><td>04/25/2021 5:00 PM EDT</td><td></td><td><paragraph styleCode="header">Results for this procedure are in the <content styleCode="[id number]">results section</content>.</paragraph></td> 04/25/2021 05:00:00 PM EDT [facility] PROTHROMBIN TIME <td>PROTHROMBIN TIME NO THER APY OR UNKNOWN</td><td>STAT</td><td>04/25/2021 4:12 PM EDT</td><td></td><td> </td> 04/25/2021 04:12:00 PM EDT [facility] THROMBOPLASTIN TIME PARTIAL PLASMA/WHOLE BLOOD <td>PTT NO THERAPY OR UNKNOWN</td><td>STAT</td><td>04/25/2021 4:12 PM EDT</td><td></td><td> </td> 04/25/2021 04:12:00 PM EDT [facility] BLOOD COUNT COMPLETE AUTO&AUTO DIFRNTL WBC COUNT <td>H C CBC W/ DIFFERENTIAL</td><td>STAT</td><td>04/25/2021 4:12 PM EDT</td><td></td><td> </td> 04/25/2021 04:12:00 PM EDT [facility] TRIIODOTHYRONINE T3 TOTAL TT3 <td>T3</td><td>Routine</ td><td>04/25/2021 4:12 PM EDT</td><td></td><td> </td> 04/25/2021 04:12:00 PM EDT [facility] THYROID STIMULATING HORMONE TSH <td>TSH</td><td>STAT</ td><td>04/25/2021 4:12 PM EDT</td><td></td><td> </td> 04/25/2021 04:12:00 PM EDT [facility] THYROXINE FREE <td>T4, FREE</td><td>Routine </td><td>04/25/2021 4:12 PM EDT</td><td></td><td> </td> 04/25/2021 04:12:00 PM EDT [facility] MAGNESIUM <td>MAGNESIUM</td><td>STAT</ td><td>04/25/2021 4:12 PM EDT</td><td></td><td> </td> 04/25/2021 04:12:00 PM EDT [facility] LIPASE <td>LIPASE</td><td>STAT</td> <td>04/25/2021 4:12 PM EDT</td><td></td><td> </td> 04/25/2021 04:12:00 PM EDT [facility] COMPREHENSIVE METABOLIC PANEL <td>COMPREHENSIVE METABO LIC PANEL</td><td>STAT</td><td>04/25/2021 4:12 PM EDT</td><td></td><td> </td> 04/25/2021 04:12:00 PM EDT [facility] COLONOSCOPY <td>COLONOSCOPY</td><td></td ><td>03/27/2021 10:28 AM EDT</td><td></td><td> </td> 03/27/2021 10:28:41 AM EDT [facility] CUL BACT STOOL AEROBIC ADDL PATHOGENS&ID EA <td>ENTERI C PATHOGENS, PCR (FOR DX INSTEAD OF INITIAL STOOL CULTURE)</td><td>Routine</td><td>03/26/2021 4:15 PM EDT</td><td></td><td> </td> 03/26/2021 04:15:00 PM EDT [facility] BLOOD COUNT COMPLETE AUTOMATED <td>CBC</td><td>Routine </td><td>03/26/2021 4:28 AM EDT</td><td></td><td> </td> 03/26/2021 04:28:00 AM EDT [facility] MAGNESIUM <td>MAGNESIUM</td><td>Routin e</td><td>03/26/2021 4:28 AM EDT</td><td></td><td> </td> 03/26/2021 04:28:00 AM EDT [facility] BASIC METABOLIC PANEL CALCIUM TOTAL <td>BASIC METABOLI C PANEL</td><td>Routine</td><td>03/26/2021 4:28 AM EDT</td><td></td><td> </td> 03/26/2021 04:28:00 AM EDT [facility] UPPER GI ENDOSCOPY <td>UPPER GI ENDOSCOPY</td>< td></td><td>03/25/2021 10:41 AM EDT</td><td></td><td> </td> 03/25/2021 10:41:55 AM EDT [facility] UPPER GI NDSC DX W/WO COLLECTION SPECIMEN <td>EGD (ESOPHAGOGASTRODUODENOSCOPY)</td><td></td><td>03/25/2021 10:06 AM EDT</td><td> GI bleed</td><td></td> 03/25/2021 10:06:00 AM EDT - 03/25/2021 10:37:00 AM ED T [facility] BLOOD COUNT COMPLETE AUTO&AUTO DIFRNTL WBC COUNT <td>H C CBC W/ DIFFERENTIAL</td><td>Routine</td><td>03/25/2021 4:20 AM EDT</td><td></td><td> </td> 03/25/2021 04:20:00 AM EDT [facility] BASIC METABOLIC PANEL CALCIUM TOTAL <td>BASIC METABOLI C PANEL</td><td>Routine</td><td>03/25/2021 4:20 AM EDT</td><td></td><td> </td> 03/25/2021 04:20:00 AM EDT [facility] BLOOD COUNT COMPLETE AUTO&AUTO DIFRNTL WBC COUNT <td>H C CBC W/ DIFFERENTIAL</td><td>Routine</td><td>03/24/2021 4:29 AM EDT</td><td></td><td> </td> 03/24/2021 04:29:00 AM EDT [facility] MAGNESIUM <td>MAGNESIUM</td><td>Routin e</td><td>03/24/2021 4:29 AM EDT</td><td></td><td> </td> 03/24/2021 04:29:00 AM EDT [facility] COMPREHENSIVE METABOLIC PANEL <td>COMPREHENSIVE METABO LIC PANEL</td><td>Routine</td><td>03/24/2021 4:29 AM EDT</td><td></td><td> </td> 03/24/2021 04:29:00 AM EDT [facility] POCT GLUCOSE METER UNSOLICITED RESULTS <td>POCT GLUCOS E METER UNSOLICITED RESULTS</td><td>Routine</td><td>03/23/2021 10:25 PM EDT</td><td></td><td> </td> 03/23/2021 10:25:00 PM EDT [facility] BLOOD COUNT COMPLETE AUTO&AUTO DIFRNTL WBC COUNT <td>H C CBC W/ DIFFERENTIAL</td><td>STAT</td><td>03/23/2021 8:42 PM EDT</td><td></td><td> </td> 03/23/2021 08:42:00 PM EDT [facility] C-REACTIVE PROTEIN <td>C-REACTIVE PROTEIN</td>< td>Routine</td><td>03/23/2021 8:42 PM EDT</td><td></td><td> </td> 03/23/2021 08:42:00 PM EDT [facility] MAGNESIUM <td>MAGNESIUM</td><td>STAT</ td><td>03/23/2021 8:42 PM EDT</td><td></td><td> </td> 03/23/2021 08:42:00 PM EDT [facility] LACTATE <td>LACTIC ACID</td><td>Rout ine</td><td>03/23/2021 8:42 PM EDT</td><td></td><td> </td> 03/23/2021 08:42:00 PM EDT [facility] COMPREHENSIVE METABOLIC PANEL <td>COMPREHENSIVE METABO LIC PANEL</td><td>STAT</td><td>03/23/2021 8:42 PM EDT</td><td></td><td> </td> 03/23/2021 08:42:00 PM EDT [facility] OXYGEN DAILY PROTOCOL <td>OXYGEN DAILY PROTOCOL</td><td>Routine</td><td>03/23/2021 5:48 PM EDT</td><td></td><td></td> 03/23/2021 05:48:21 PM EDT [facility] OXYGEN DAILY PROTOCOL <td>OXYGEN DAILY PROTOCOL</td><td>Routine</td><td>03/23/2021 5:48 PM EDT</td><td></td><td></td> 03/23/2021 05:48:21 PM EDT [facility] MRI, lumbar spine, w/wo contrast 03/18/2021 12:00:00 A M EDT DAVID ([facility]) ECG ROUTINE ECG W/LEAST 12 LDS W/I&R 03/10/2021 12:00: 00 AM EDT eCW1 ([facility]) Results ID Date Data Source [id number] 05/05/2021 06:37:00 PM EDT [facility] Patient: SIENNA FOSTER Observation Re port - [facility].VisitID: [id number] [place] [address] [phone], FRegistration Date/Time: 04/24/2021 22:55 Weight:68.9 kg (S). [...] rce(s) Supporting Document(s) ID Date Data Source [id number] 05/04/2021 04:34:32 PM EDT [facility] Name Value Range Interpretation Code Description Data Arabella rce(s) Supporting Document(s) Discharge Summary [facility] [id number] [facility] [file] [id number] ID Date Data Source [id number] 05/04/2021 03:25:37 PM EDT [facility] Name Value Range Interpretation Code Description Data Arabella rce(s) Supporting Document(s) Nursing Note [facility] [id number] lbm [file] [id number]== ID Date Data Source [id number] 05/04/2021 12:56:29 PM EDT [facility] Name Value Range Interpretation Code Description Data Arabella rce(s) Supporting Document(s) Care Plan [facility] [id number] lbm [file] [id number]= ID Date Data Source [id number] 05/04/2021 07:13:56 AM EDT [facility] Name Value Range Interpretation Code Description Data Arabella rce(s) Supporting Document(s) Nursing Note [facility] [id number] lbm [file] [id number]= ID Date Data Source [id number] 05/04/2021 05:39:00 AM EDT [facility] Name Value Range Interpretation Code Description Data Arabella rce(s) Supporting Document(s) Blood Urea Nitrogen 15 mg/dl 7-18 Normal (applies to non-nume ny results) [facility] Creatinine 0.78 mg/dl 0.51-0.95 Normal (applies to non-numeric resul ts) [facility] N-Acetylcysteine (NAC) and Metamizole em ve the potential to falselydepress Creatinine results. Baseline values before medication adminstration are recommended. Patients undergoing treatment with phenindione will have falselydepressed results. Patients on phenindione therapy should be tested with an alternativeCREA method.Toxic levels of acetaminophen may lead to falsely depressed results forpatient samples. Glomerular Filtration Rate 83.00 mL/min/1.73m2 [facility] GFR Reference Ranges:Normal Function or Mild Renal [...] of Health and the National KidneyFoundation. The [place] method used in calculating this result is traceable to IDVT standards. Glucose 86 mg/dl 70-110 Normal (applies to non-numeric resul ts) [facility] Sulfasalazine has the potential to false ly depress Glucose results. Sulfapyridine has the potential to falsely elevate Glucose results. Baseline values before medication administration are recommended. Calcium 8.5 mg/dl 8.5-10.1 Normal (applies to non-numeric resul ts) [facility] Sodium 137 mEq/L 136-145 Normal (applies to non-numeric resul ts) [facility] Potassium 3.7 mEq/L 3.5-5.1 Normal (applies to non-numeric resul ts) [facility] Chloride 109.0 mEq/L 98.0-107.0 Above high normal [facility] Anion Gap 9.7 [facility] Carbon Dioxide 22.0 mMol/L 21.0-32.0 Normal (applies to non-numeric results) [facility] The above 10 analytes were performed by [facility] [id number], ,[place] [address] ID Date Data Source [id number] 05/04/2021 05:39:00 AM EDT [facility] Name Value Range Interpretation Code Description Data Arabella rce(s) Supporting Document(s) Magnesium 2.0 mg/dl 1.6-2.6 Normal (applies to non-numeric resul ts) [facility] The above 1 analytes were performed by [facility] [id number], ,[place] [address] ID Date Data Source [id number] 05/04/2021 05:18:00 AM EDT [facility] Name Value Range Interpretation Code Description Data Arabella rce(s) Supporting Document(s) WBC 5.61 x1000/ul 4.80-10.00 Normal (applies to non-numeric re sults) [facility] RBC 4.13 x1Mil/ul 4.20-5.40 Below low normal [facility] Hemoglobin 11.1 g/dl 12.0-16.0 Below low normal [facility] Hematocrit 34.4 % 37.0-47.0 Below low normal [facility] MCV 83.3 fL 81.0-99.0 Normal (applies to non-numeric resul ts) [facility] MCH 26.9 pg 27.0-31.0 Below low normal [facility] MCHC 32.3 g/dl 32.2-37.0 Normal (applies to non-numeric resul ts) [facility] RDW 14.6 % 11.5-14.5 Above high normal [facility] Platelet Count 235 x1000/ul 130-400 Normal (applies to non-numeric results) [facility] MPV 10.4 fL 9.4-12.4 Normal (applies to non-numeric resul ts) [facility] Neutrophils 51.3 % 40.0-74.0 Normal (applies to non-numeric resu lts) [facility] Lymphocytes 36.5 % 19.0-48.0 Normal (applies to non-numeric resu lts) [facility] Monocytes 9.3 % 3.4-9.0 Above high normal [facility] Eosinophils 2.0 % 0.0-7.0 Normal (applies to non-numeric resu lts) [facility] Basophils 0.7 % 0.0-2.0 Normal (applies to non-numeric resul ts) [facility] Immature Granulocytes 0.2 % 0.0-0.5 Normal (applies to non-nu meric results) [facility] Nucleated RBCs 0.00 % 0.00-0.20 Normal (applies to non-numeric r esults) [facility] Abs. Neutrophils 2.88 x1000/ul 1.92-8.31 Normal (applies to non-numeric results) [facility] Abs. Lymphocyte 2.05 x1000/ul 1.20-3.70 Normal (applies to non-n umeric results) [facility] Abs. Monocytes 0.52 x1000/ul 0.14-0.97 Normal (applies to non-nu meric results) [facility] Abs. Eosinophils 0.11 x1000/ul 0.00-0.76 Normal (applie s to non-numeric results) [facility] Abs. Basophils 0.04 x1000/ul 0.00-0.22 Normal (applies to non-n umeric results) [facility] Abs. Immature Gran. 0.01 x1000/ul 0.00-0.02 Normal (appl ies to non-numeric results) [facility] Abs. Nucleated RBCs 0.00 x1000/ul 0.00-0.02 Normal (appl ies to non-numeric results) [facility] The above 24 analytes were performed by [facility] [id number], ,[place] [address] ID Date Data Source [id number] 05/04/2021 01:18:34 AM EDT [facility] Name Value Range Interpretation Code Description Data Arabella rce(s) Supporting Document(s) Care Plan [facility] OZTLTi9xPvLWJgHo49/IEWwyNDEua1AmKVvsVYa4EYbfCSKqC1IpNUY2qK5zHKP5TCxBZvDeAeWyBOP6 [facility] [file] ZOtTO6291LMjflVjyFm+cgBD5mrMUp0xuzJiT7RrZRYj2jR22Ok7h+1v27EsWB/ENVIRONMENTAL EMERGENCIES PLANNER/aInR8NiG73OTeO [file] ICAgICAgICAgICAgICAgICAgICAgICAgICAgICAgICAgICAgICAgICAgICAgICAgICAgICAgICAgICAg ICAgDQogICAgICAgICAgICAgICAgICAgICAgICAgIC AgICAgICAgICAgICAgICAgICAgICAgICAgICAgICAgICAgICAgICAgICAgICAgICAgICAgICAgICAgIC AgICAgICAgICAgICAgDQogICAgICAgICAgICAgICAgICAgICAgICAgICAgICAgICAgICAgICAgICAgIC AgICAgICAgICAgICAgICAgICAgICAgICAgICAgICAg ICAgICAgICAgICAgICAgICAgICAgICAgDQogICAgICAgICAgICAgICAgICAgICAgICAgICAgICAgICAg ICAgICAgICAgICAgICAgICAgICAgICAgICAgICAgICAgICAgICAgICAgICAgICAgICAgICAgICAgICAg ICAgICAgDQogICAgICAgICAgICAgICAgICAgICAgIC AgICAgICAgICAgICAgICAgICAgICAgICAgICAgICAgICAgICAgICAgICAgICAgICAgICAgICAgICAgIC AgICAgICAgICAgICAgICAgDQogICAgICAgICAgICAgICAgICAgICAgICAgICAgICAgICAgICAgICAgIC AgICAgICAgICAgICAgICAgICAgICAgICAgICAgICAg ICAgICAgICAgICAgICAgICAgICAgICAgICAgDQogICAgICAgICAgICAgICAgICAgICAgICAgICAgICAg ICAgICAgICAgICAgICAgICAgICAgICAgICAgICAgICAgICAgICAgICAgICAgICAgICAgICAgICAgICAg ICAgICAgICAgDQogICAgICAgICAgICAgICAgICAgIC AgICAgICAgICAgICAgICAgICAgICAgICAgICAgICAgICAgICAgICAgICAgICAgICAgICAgICAgICAgIC AgICAgICAgICAgICAgICAgICAgDQogICAgICAgICAgICAgICAgICAgICAgICAgICAgICAgICAgICAgIC AgICAgICAgICAgICAgICAgICAgICAgICAgICAgICAg ICAgICAgICAgICAgICAgICAgICAgICAgICAgICAgDQogICAgICAgICAgICAgICAgICAgICAgICAgICAg ICAgICAgICAgICAgICAgICAgICAgICAgICAgICAgICAgICAgICAgICAgICAgICAgICAgICAgICAgICAg PZEbIGKqKGNnQOYbMVs2O6emSZRdJXGgPF6qZHa0Nh 8+WZbSHnVpHZP5nlNamE3IVF6iz8NwZMfrWFFcb6YtCGa1PM6JXXQqTCiyPY3BAYvdfv3VIDMxHMJimM KMt1xwFySjVXC6EVZaGxtuCU3TBKZpN8odpyVmUIVxFTLOIO4KBzUvW1NnzR15TRWOPl9+DQplbmRvYm nYGbJeCFOns6EfEZf4VG8RRVNtJjzxz2PoHiNpCVIL AJowPX6NTON1HZOgHNKmSx5MREUgP305qeZfJJ2VEb4YVoItQI1ivq4SCuNcYHHdFbdSAcj4JVkbDC5B rODbUPqWTWWwBPMxZM6rUjzaQwG1JXjdlHCiBuzeg7WhW4vwVJQBXVQ1GMndErDeQzRiWGEyRUgtCZMT EOvRUuPhX9Pxr4LzVfX5AZLtJmNzKWadLPSrIhN5GO 89nSvtKO0XTHDwBJIqOT66SSQmPNKtQu7PPe3DWuJxNV3qxx8MQwAzKLSyItnBWiz4BEhvHB8WrPMaA7 PisTNdj5hYPeIvF8WMTCC3SFSvOa0QKBCxXpTgQNQyCElrFQ6rVKEoZJHGpHemgkD2GM3ASA6hnwKhPD 4XYeZoRb4nQu8USbMzG0LxO2CfKDUoQXQLLRdmEA3K JIhvOZ1iXA3Dn0YUzQYfuB9eug0MZKHfZQBcXahkzt5KIdwlT0S9tRfdFBPwOaYsJFVGIZykJX6NMOIz MFO2OJNeFFRoJISJMmSoM58fSK0PS2Rrj17rBrS2BGTqIhRwZPzmPZ60qUsvwmYrvFZzqSrtOD8EYv9+ DQplbmRvYmoNCnhyZWYNCjAgMzMNCjAwMDAwMDAwMD NtQoG5NqVfWd7DPCRwYUAhTRFxVcYnPJUwTAUkJAwrAVVyWSPiWKS3VJJqEDEvDP2YSrAlPZLiWFIfQO ArZAOtXRBlwg2WFAOmHORrNUG4PpLcFQBgTFKqLKdwENYmQCCdVRP4OLSxZTTyOK5JLbQvIMQuLTGmYK JbALXjWLCqft5DDCKaIGSxWKW8RSXkCIJkASBnMNzt YWHmAJQ8RrphVVGsIGNqTV5EZnVwAZTrCWG3ZIukBXHpPDXvol6TLCXnSOQpLFBvKcKbBRCuBOWnSAdo WGDgDZB5QwStNBBvMUGbHN1GCrXbMIVpRYO4MIJsZXAyTKZbri0LOHZlJTPyIPW4JFIlWOSmDRNkVMzp WLZcUQJ5KJGlUEOkXLJmAI6VSsUkNKCdHNf2QhbrER AqDGPwzd7VZAOaSKSjIOzmFHXuYQZzOVBwSSzvRIKxUTS7MCZ5OTCaCKGwGS4SSsAuPBYxYLb9VBcvMW DuVPTyze3ACUIlMRSfRLS7QBYgECLlYHYtNNlsLXMrCOPjAqvkCDVbZSNxWX4WFjYtVIEiWsNhYiNfBD UhYLFwyg4BDEFfBQWjQJXdXMHsADTjEYIlLEcsEPFs RRYrMulsXQUaFEWhWH1NJcXcHMTmCmisPVUzKMUfJKIfoy7GBTIbIKYqGEQxPEWvGPJkOYIsZIedSAQw YWS8RWS0KMNoGZKbJH1PTjEaBYAyCXObKWszSQIdJUDujs8BXKCsEGH8TIVcCQSrOFPeUZTwMFrkJQHe UYLePPDiVLOmBHWzZI5SGvIdJLBpFIUnCWGlIRDuYZ Jkxv4ZXRFbOWD4WmY5SoIvDLOgCWLdXXhvTUHxTMZvYaL7NSKjTDQcAM4WKwSjGZulQIZMWer7JQfwU3 p4KTZhZu3MK2Pdn3GrEzJlYCUXSVlyIJ9spaEhTGPnKj0TU8jIDmh7YyXrUJT3ZUDfIEUgKWMhN2XtCP PfTXEpDbPoRvxlSM5yZEk9PzJ3Gzh6MXX1NKTaInCf OFLjGRG9JPXoMxCpBDH6IaTmFV6GQp8WXqW8UVE8cUZwTe8MKYC0SDZZZiDsQD8WBSi= ID Date Data Source [id number] 05/03/2021 04:14:39 PM EDT [facility] Name Value Range Interpretation Code Description Data Arabella rce(s) Supporting Document(s) Progress Notes [facility] YFWAUp8gDzDQTwFo91/EGGtkTQHqy6TtUWnfHGh3AMkmPTAkT2InKMW0cJ1hDJM9BGfMIoHjCdXgSCA5 lbm [file] ICAgICAgICAgICAgICAgICAgICAgICAgICAgICAgIC AgICAgICAgICAgICAgICAgICAgICAgICAgICAgICAgICAgICAgICAgICAgICAgICAgICAgICAgICAgIA 0KICAgICAgICAgICAgICAgICAgICAgICAgICAgICAgICAgICAgICAgICAgICAgICAgICAgICAgICAgIC AgICAgICAgICAgICAgICAgICAgICAgICAgICAgICAg TPKoJPBpHSZnRC4JLRDdZMIxRRSwDOXjINXqVPPlXNZjCTAqSOYfTOCeBONxXCTjLRMjIGOrZLVeFDXw QXPrCLHoIOOzYUYxBASySWLvRFRhQNAtGRHvFUAuLSAnSUDtBAKvENEaDFXbHUTsYTIhHL2JCIZaNMGr ICAgICAgICAgICAgICAgICAgICAgICAgICAgICAgIC AgICAgICAgICAgICAgICAgICAgICAgICAgICAgICAgICAgICAgICAgICAgICAgICAgICAgICAgICAgIC ZlJA5FEMLvVBHbXTEsKCSwQWIyHIFxEXDhHITnGEUkRYGxPYUaAJIfHGXuLNXiKFQmSTZeMRRaHCPvIZ AgICAgICAgICAgICAgICAgICAgICAgICAgICAgICAg SYIlRHBoKYKmNBLpZP1FEYIjBOMjGSWjBZVlNZKyFXEcUXBcGESaOMEcQGQvYDMkWKRyVYFdOHTlQMMr ZDOlHSCwLSAlQPHoZKPhALTlJPJkFTUtYRYdHWNpBQAzYNZcAHAdFHUnKFCuJHBwYBUkNMNcJQ8YQTFs ICAgICAgICAgICAgICAgICAgICAgICAgICAgICAgIC AgICAgICAgICAgICAgICAgICAgICAgICAgICAgICAgICAgICAgICAgICAgICAgICAgICAgICAgICAgIC QdBFBmBH8MPTEqMEDyMKHuVJLkVENbXTGzRAZeUBAfCYYqYMNvWQLmLYRpCHFiGTBkFUJyREAiSSBvQI AgICAgICAgICAgICAgICAgICAgICAgICAgICAgICAg QLMmMXTlBGMsICRkDZGyYC8RKTFgIDLeBUPmJFPtBXYpVKEhGSSaUONfTMXoIXErIIOdMOZnSDLxIMPi QQSfVIWqDFNrFSSyVPIsHDMfHXSbGJHsKMHrUZAwUCCuDMWyMMMzDCBvVDTlTSLpMGSfGSGvOOWhUL7Y XR76uSDlv5V0LFJdWK4seko/Rq3CVCvjnmBjzKMhKN 7FKtAbAW9bmr1FHuFfDZ5zru8ZAXeRMvTaO3Q6eIJyGHKeOCUKNqAsM20oWWttZj03HNasDSJoHdJxWW g6Pv9VJzYqG9ckVCNmRnF9XOCnBeN2WJQkKcW3RIRzQoIsCVBuDVQcYP0CGXKvC033ogZkJR2VRq3IYo LaOT6fgo3OHBRkXDTgEllMDld0SBolMM2MiSZovRQ2 VuItSPTQSkFkH9igi5CzHMOmYWKKEQfsWD4Ma0UogKNkEHt+Es3DGJ9ve3HdFGk2HaCcZC9ukr9PMCfI UtNhV1JkbZcgWKPem8jvOJIbQR9mkWSbNNN6YE8okjG7UGRqOFtzVY4KCRY1ABqmTtVpOjOmKYWcRwb4 CBFNKRcMPrFrU9Ffl0EuRgD4VJOnXfPvXZatPLQoWq D5OK14fPfbPP2RSMIvDABhZT94ERIjJXXcOs2OYj8TPcPxLO5cvf7NCJWqYPQcHinUFmz7MJjnDN6UiZ NoI3DfqIBje9lEPwZxO2SRZZXzPRToEz0AMMIeMuCkTDNuQMjeZM7eOJGqPUQBvAqrwoU6DB3IYA3hsk FbPD8MEwGoPp7jAw8BEnBiC7LuA6RdGFZbUIKSHQrx II5QCAdrZB6eBJ6Ah5LXgKZniA1lht0MJXUnBHZtHbhwkj4PXdvoV9U0nPayQSGtPVKmARKEAMqwZV7H AIKcAGE0VKK6FUYhFMVWGrQbA74tPF7OF9Ptb52kOtY7VRHdBgKlORkdHI67eRthsdHyyBApuYbtSI8H Cj4+DQplbmRvYmoNCnhyZWYNCjAgNDUNCjAwMDAwMD DxJDDoLuC9CcAtJp8BUKNoYZTsNLCjQqKjDUXpDUKcHMewGRZzYNM3DfN7TCPvGOZrCW9WTnXiNRQkWR opCtrdWLAwXQRbwf9ILZUcTFKdMTE3PdSaWFZsCXUtENioBRMhBSOyFBQ4XTIqIVJyCK9SWjVhEXJhDK FhHLSoNTXpBMOweo3KTFLaQBNbOCwnEXOpJDCeQUDe TNfjCVUvAWU3JUW2URZmLAZmGZ2EBqLeNOKrDMV9VQimLKDwCYRfnq2YFJYlGYCcEdBpJHJfHLJxOYCk BEgbBVVzOAV3FyalKSQnRMYbXD0YNdKoSLKhGBv3FcKbKETvSSEifv6GDPHuOWXaFLhoQAErGRRsWMPv KXreHUGzKIDxHGW8HPRqZNCpIQ8GQuQtXLQgSGLiDw IjVYUbFCXhse6TYKKaDZYcClH0BDLeMPDyHCNhDKnzWGEcTFYkHqxtYYAkJQFkDU0WXaRqBXVuJZR7Jp WqOPGgSZUyaj2DNBQoXZJeMJyuWOToGCFhWUNvBSozSVUdBQX3SuSxUGDeKVLgAJ7VBvByBIBgWxD9St epNWOwQLBebx2PZTGdJPYzBGM0JTItKWGhAUBzWSqi JNZeUQI6WEY0ZDTiVKUcVS6VUlJvNCWdZaD9YfduAMOvUXWncz1SQFXiWPHlOps0ENUgUEGbONYdYYqf FPWaUQN0YVW0OXPlGPAlXV8HIkIjITYxUzlfGfceZWSbKTBqgx9PJVYaLRHzTTQ2ZSHpEXVhYEYrJHza LIBpPAL2ALC8YGPyAIGbME2BOvKwVZYhIrpvMnbfNT SeFDNsub9UMMNlEFGvZTW1HSBhBQExOPNgRYzyKORsLVC9ExO8QZYzGVHcWS6PQeUpWKPlIVZbZBvrRI HgTLNsio5XDQSvHKU6RwU5JqZnSNGyWZCbUOmrQGCoSZOxPAvvNJVyLEJmAK9DZsHoCJOfXIR9GxPlFB KfLPMopu6FONUcBBN6Qra9AYYrAJTxJHMpCPrxIPVb YVU6ZMPvYFDzELLbBR6PRfTpXTJcUVWnXnQzJRVqSBJzys8JUKJeWNJ0BQYvDqTuCICsTWNsTVvoQNLk JVI5Nei5PEQaHEBmKK5BCpWqJGLzQScnMIGnXZAeKBHtzh7HALAuMMS4YxNxXBOfEDPxJGLeIRtyBESc OMM7ZVYqZMXkPNBkLW8CXeXdAAtaUAHECjb9ICprR5 k2OCD2YX2XF1Srj7SoSZHaLYAVXCdbVQ3uvsNtJQZlPl5HG8mMYacbWZRjCuUsORDcUwMmKJHjKFAxG3 XzJoB6QkGzXQKlCo9eCOWbR1TzFVJyRIE0LHYfEeU6GVIrQBEoGbgrNqZgXAMsWjDwAE4IHq6OOfN8TK G9rQTbGi4DUYz5CNLPLrJjEB8CIYx= ID Date Data Source [id number] 05/03/2021 03:38:36 PM EDT [facility] Name Value Range Interpretation Code Description Data Arabella rce(s) Supporting Document(s) Progress Notes [facility] WZIEYb2zReHQZtDw38/VIZbqHORqg9DzYFwgROz0EKetCHJbA7YmMQX9iO0bPKX2FBvUAhSdAcYjILB6 lbm LiSciCPjKuBYRpKmwWBcGyGCskGlzhjQSrTH0EsZL5GQDmI58tVFVrWJQaH5EhPEW0LKs+Hz8HEFTofW FmGB5WTevB1CciV+K24izB7q/8oZII0Pv2w94dGXVi7lmEQnQjdhtgQoz2LO84tesOi1P//pdJ9kFS5x GmE6ieOFQMNUpna5oPJJSYeYnaE3ERQGACvKns/CpT [file] QwNfLuDHksPYGAVn4M ID Date Data Source [id number] 05/03/2021 11:35:45 AM EDT [facility] Name Value Range Interpretation Code Description Data Arabella rce(s) Supporting Document(s) Care Plan [facility] YKQTBi2gYcPTXoIy43/SRUkmJHKib0IjKKtmFVq6KEbpBTNoR8QhJQF0eO9nJDN3MDhAZxQySuLpZIF9 lbm [file] DQo= ID Date Data Source [id number] 05/03/2021 10:15:39 AM EDT [facility] Name Value Range Interpretation Code Description Data Arabella rce(s) Supporting Document(s) Nursing Note [facility] HTXICd2nGoBORzEk87/RRPmvQAZim7KjOUatCNu2FUviHNTfB3LwXDZ7tC9hFFV5QJvQVxQeLzHwQEV4 lbm [file] KzR7OiPvJD2DHi8CKmE8USX1oMDdFs5BBhB3WNLAHnEsDX4DOOb= ID Date Data Source [id number] 05/03/2021 09:38:41 AM EDT [facility] Name Value Range Interpretation Code Description Data Arabella rce(s) Supporting Document(s) Care Plan [facility] YYFYHp2hBcAHHcFk30/DAMstTFXsa6XdQHasUDz8PKcnFUAyG2MeUBN8iH7pRDB0INgKYwEgUfYoHTP8 lbm [file] 9GDQo= ID Date Data Source [id number] 05/03/2021 07:07:07 AM EDT [facility] Name Value Range Interpretation Code Description Data Arabella rce(s) Supporting Document(s) Nursing Note [facility] JYZRCo2vFxODIyIp83/RACqgRXYoo8OoERnzYUp9ZQmjAIZbO9XvTPY6aR8dSXH2GPnTGfDgMoPhASN8 lbm [file] == ID Date Data Source [id number] 05/03/2021 05:12:00 AM EDT [facility] Name Value Range Interpretation Code Description Data Arabella rce(s) Supporting Document(s) Blood Urea Nitrogen 11 mg/dl 7-18 Normal (applies to non-nume ny results) [facility] Creatinine 0.72 mg/dl 0.51-0.95 Normal (applies to non-numeric resul ts) [facility] N-Acetylcysteine (NAC) and Metamizole em ve the potential to falselydepress Creatinine results. Baseline values before medication adminstration are recommended. Patients undergoing treatment with phenindione will have falselydepressed results. Patients on phenindione therapy should be tested with an alternativeCREA method.Toxic levels of acetaminophen may lead to falsely depressed results forpatient samples. Glomerular Filtration Rate >90.00 mL/min/1.73m2 [facility] GFR Reference Ranges:Normal Function or Mild Renal [...] of Health and the National KidneyFoundation. The [place] method used in calculating this result is traceable to IDVT standards. Glucose 69 mg/dl 70-110 Below low normal [facility] Sulfasalazine has the potential to false ly depress Glucose results. Sulfapyridine has the potential to falsely elevate Glucose results. Baseline values before medication administration are recommended. Calcium 8.5 mg/dl 8.5-10.1 Normal (applies to non-numeric resul ts) [facility] Sodium 138 mEq/L 136-145 Normal (applies to non-numeric resul ts) [facility] Potassium 3.8 mEq/L 3.5-5.1 Normal (applies to non-numeric resul ts) [facility] Chloride 110.0 mEq/L 98.0-107.0 Above high normal [facility] Anion Gap 11.3 [facility] Carbon Dioxide 20.5 mMol/L 21.0-32.0 Below low normal [facility] The above 10 analytes were performed by [facility] [id number], ,[place] [address] ID Date Data Source [id number] 05/03/2021 05:00:00 AM EDT [facility] Name Value Range Interpretation Code Description Data Arabella rce(s) Supporting Document(s) PT,Patient (on Anticoag. Therapy) 13.6 Seconds [facility] Attention: Effeciive 01/03/2020 The nor mal range for PT (on Anticoagulant Therapy) has changed:Previous normal range: 10.1-11.3New normal range: NoneDiscrepant results may occur due to anticoagulant effects such ascoumadin, direct thrombin inhibitors; argatroban (Acova), bivalirudin(Angiomax) or dabigatran (Pradaxa) or direct factor Xa inhibitors;rivaroxaban (Xarelto), apixaban (Eliquis) and edoxaban (Savaysa). INR (on Anticoagulant Therapy) 1.2 2.0-3.5 Below low normal [facility] Suggested therapeutic INR ranges for ora l anticoagulant therapy: Indication:INRPrevention and treatment of DVT and PE2.0 - 3.0Prevention of systemic embolism with atrial fib., acute [place] and 2.0 -3.0 tissue prosthetic heart valves.Prevention of systemic embolism in patients with mechanical heart2.5 -3.5 valves.NOTE: The INR is only valid for patients on stable oral anticoagulanttherapy. The above 2 analytes were performed by [facility] [id number], ,[place] [address] ID Date Data Source [id number] 05/03/2021 04:56:00 AM EDT [facility] Name Value Range Interpretation Code Description Data Arabella rce(s) Supporting Document(s) WBC 5.87 x1000/ul 4.80-10.00 Normal (applies to non-numeric re sults) [facility] RBC 4.05 x1Mil/ul 4.20-5.40 Below low normal [facility] Hemoglobin 10.8 g/dl 12.0-16.0 Below low normal [facility] Hematocrit 34.2 % 37.0-47.0 Below low normal [facility] MCV 84.4 fL 81.0-99.0 Normal (applies to non-numeric resul ts) [facility] MCH 26.7 pg 27.0-31.0 Below low normal [facility] MCHC 31.6 g/dl 32.2-37.0 Below low normal [facility] RDW 15.0 % 11.5-14.5 Above high normal [facility] Platelet Count 204 x1000/ul 130-400 Normal (applies to non-numeric results) [facility] MPV 10.5 fL 9.4-12.4 Normal (applies to non-numeric resul ts) [facility] Neutrophils 50.9 % 40.0-74.0 Normal (applies to non-numeric resu lts) [facility] Lymphocytes 37.6 % 19.0-48.0 Normal (applies to non-numeric resu lts) [facility] Monocytes 8.2 % 3.4-9.0 Normal (applies to non-numeric resul ts) [facility] Eosinophils 2.2 % 0.0-7.0 Normal (applies to non-numeric resu lts) [facility] Basophils 0.9 % 0.0-2.0 Normal (applies to non-numeric resul ts) [facility] Immature Granulocytes 0.2 % 0.0-0.5 Normal (applies to non-nu meric results) [facility] Nucleated RBCs 0.00 % 0.00-0.20 Normal (applies to non-numeric r esults) [facility] Abs. Neutrophils 2.99 x1000/ul 1.92-8.31 Normal (applies to non-numeric results) [facility] Abs. Lymphocyte 2.21 x1000/ul 1.20-3.70 Normal (applies to non-n umeric results) [facility] Abs. Monocytes 0.48 x1000/ul 0.14-0.97 Normal (applies to non-nu meric results) [facility] Abs. Eosinophils 0.13 x1000/ul 0.00-0.76 Normal (applie s to non-numeric results) [facility] Abs. Basophils 0.05 x1000/ul 0.00-0.22 Normal (applies to non-n umeric results) [facility] Abs. Immature Gran. 0.01 x1000/ul 0.00-0.02 Normal (appl ies to non-numeric results) [facility] Abs. Nucleated RBCs 0.00 x1000/ul 0.00-0.02 Normal (appl ies to non-numeric results) [facility] The above 24 analytes were performed by [facility] [id number], ,[place] [address] ID Date Data Source [id number] 05/03/2021 01:45:31 AM EDT [facility] Name Value Range Interpretation Code Description Data Arabella rce(s) Supporting Document(s) Care Plan [facility] SNKYVt3zCbXDVnNn15/NTHyrXWTut9UyQDjyVPp8LQczGROuN8VxVRF9hQ7pBDW7TRwEQoMiGlLlNMX9 lbm [file] sponsorship coordinator+9HnICotFOPnX4iWVl4+33/9UFTwrICCkf6Q667xvYslfM4yTKlW/bwQ2pePz12+z2YC703iDt8yY aWkTm4bITBmxa/4d45jwlhcyMb4JxkN4hljujfqqv+KZyqPiHNsWPZfh+e7xSo5YruEk0gmoxvSa7YMP bfJzgdTKwkDM/ck+HY+EzPzJKDHL3gPTq/MSDztTas dQ6+aySZyBcnrIV12ahP/1I4/u09dMFvfZk4j0iljEoD6w+/Z7OMqxVOdaLDQXig/W8TrgZ6udj17VTz Rnp7h9fFaGiU0UHFi5w2sS09Dm0/0378n/yIf1lqyft7LPh9vr8he4gygaGO/ez5c6t6X1HUbngy6i1Z AFuB/V5hA6GevQU6Ilj7yqE4em5Ac+aEzrTUb0RW57 wx68dbCHyFkt2I+S9ILEk2Mfd8dq5k5+jvh4Q0y1YoXa+dGk8jY2lYLc2BBGjz4piyw/NtumR5m/O8h/ 4UTT/M8zBz1x67aFItsVF+LdMMtaAvMysZs5SnDFPqYU6CFOBsgIaypYhxt355Kxcjz2Bsql+8hR4KB/ a72RkHC3+C2jXJnr027BX63v46w0/L4eps0YjF5na7 [file] GWLqOrv9N9AsLAUrAx6jGNJIMy8+OSxjtNQwxUieWIEVAgHrHRIvLNtoQKCGQf7N ID Date Data Source [id number] 05/03/2021 12:15:00 AM EDT [facility] Name Value Range Interpretation Code Description Data Arabella rce(s) Supporting Document(s) Hemoglobin 10.6 g/dl 12.0-16.0 Below low normal [facility] The above 1 analytes were performed by [facility] [id number] [facility], ,[place] [address] ID Date Data Source [id number] 05/03/2021 12:15:00 AM EDT [facility] Name Value Range Interpretation Code Description Data Arabella rce(s) Supporting Document(s) Hematocrit 34.1 % 37.0-47.0 Below low normal [facility] The above 1 analytes were performed by [facility] [address], ,[place] [address] ID Date Data Source [id number] 05/02/2021 10:54:25 PM EDT [facility] Name Value Range Interpretation Code Description Data Arabella rce(s) Supporting Document(s) Consults [facility] VXWKFi3fKbRTThKr60/IBQeiXLNww8BrFFsrATs2PTfzNAXaB5CrQTH9qO3jGHN5VSrDFiYuGgEnZAK5 lbm [file] [id number]== ID Date Data Source [id number] 05/02/2021 07:38:00 PM EDT [facility] Name Value Range Interpretation Code Description Data Arabella rce(s) Supporting Document(s) Hematocrit 33.3 % 37.0-47.0 Below low normal [facility] The above 1 analytes were performed by [facility] [id number], ,[place] [address] ID Date Data Source [id number] 05/02/2021 07:38:00 PM EDT [facility] Name Value Range Interpretation Code Description Data Arabella rce(s) Supporting Document(s) Hemoglobin 10.5 g/dl 12.0-16.0 Below low normal [facility] The above 1 analytes were performed by [facility] [id number], ,[place] [address] ID Date Data Source [id number] 05/02/2021 05:45:33 PM EDT [facility] Name Value Range Interpretation Code Description Data Arabella rce(s) Supporting Document(s) H&P [facility] AIPBMc4lUoTUAvJz96/JGNnbSAWas4JpVGkkMPt3MUlgSLJkS0GoLSA7iD4pUPE6LIeQTzKtMtMxYXY3 lbm [file] CARLOS A/wwVecdwSnFp1Otai9hENJIxu/6S49NCcze4CVZVVW5u4g+d6fE1GiRUIdR9zMk2s43oNfV36+SOUo [file] cGA922XDEAkcAOOHfoCgNdY89TyoKQAf2jvqw5oGpbVxvgpqS6v+Y+5Dp+pcYD8UdAnCEmIk3qTr+Juan David [file] VhvtTb+2AwSNzQztDvZ4BIgsKEu7Yxn0IMGsBUv5gG7ARWH/2cXpy9vOnRul9ZdCuJX51i9gpIeyS/Kristian gC1rrskZamuo9ERtT1Jwq5oPsB7jCqRyfP892aOVs+ n52t7y5mwkCN9UTYtoPajRZEm/XrxapTx0JHnhMx+uU+bB4QADwSP6vvsFbQMeIA45bTvHb/jnQ3+group sales coordinator [file] IhVYrM1t8QuUVwnrmPlqmVYlzErhkfdKsnoqEs+ WGXc2p2PlfRoxyYkWdPvH082UgpkgVVA7NnzGsIAh1dO/Y6xKFAatXOGBlYtBmYvzrZb+WmqBU+FpD32 F/I2XjfRzBleO/L8/XFrh91NTUpCD4PyGBR4CnRL2SH+ZmiIKF92q88Z30Z8Ic7PI+/Bi/TXW1kHku+m b9NbwDHlEnc/9Xs1voi1/D5nvwImu8DzDyNmTJCTTL L2LDryCjv0EBAcszrDEbkwH3w2rJqlfF1Lu8yG+al+qRQ3hQI9KpWEmtNyKzqpUPUoZ9ovbM4vbkoGnV 8igOQagSJN6CFS1vV/vWolz9QnAqUEnU/UeacFZyoSoT+1wkGP48IqTrgYMttpm3AEiqi0o4aVAz5OGM LGxXDRv+Np5F8gkFnZI+Angel+05IXuGgW2pg+Pnx4xM [file] /tM+vDhZ6KygnGbW3vt8jGVsOlkggCtFO+dUctH+ENVIRONMENTAL EMERGENCIES PLANNER [file] EjIOnwlKMkhbQnq+o9+00wQNBY2z9Zwy4Y3ToE k5hxR1Pxb+XzMdbViW0z6OzHK/UM8P83fgrsZ8j73LfTYUZuBoBUEjoMVtT/kfEQCqsT3r3+/s+f8v9v m1RRblXBgkOkii9sD86f0URJT5QgWOy7Fyh4aWwN/vH+GusoHVPFsT3QeHGcn669/5orsCObYxQV02hy RMSyHgM3S7sU/SmPCmytOo+vzyLAC/jofV5NAp+gnq ezQTAXs7pzU3Fioy+fR01H+o7pMMtvADvBXbM5JB/p1U6OqU7Oh+JTlwNqsJ3qcuzpMxURrHPQgyjryL EMUfHDLRArJ4SDgZfUAfUcUuu1+0nI9Y5x9YxJtYzgW0OV/AfD8sMeDVGyxJAb/qywZCv0Ek0ElfK3Z2 GWkEPNE2EVgwUC7XssTMSHqiUcTp/y3b7mr96JD6RR 0i/WYPLSAdNc8Zpf36S/cr9aHQKSkqw5Rpuo6B+O6D3HfR+UruvO4Xxl4BDqK1Lw9w3rYJhjhBCXdbno aPExwpl2lxryxv1kfXQMsamyEZLIYqrlthx5DpLKJnp+betq2aSr1wFmzofVbq//wo+aQnxkxbW1u4ly [file] JtxF/PxZ7lzAMJnE4DPu3is+hNqqtgxileChiRET1I1Dx9kt4EzcI7+vp treasurer/LlwJj17ZuGpHVIWU1qYXqT [file] C+lak9m20e+nRacHH7FG8bCsk7Cso+meNzWsD [file] /H1CE+VCiQsecrxueoOcoY8Y7zIad+9uoKg02e/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 [file] abdifatah+TO9svA0vD1vdK8iZ4KrvLemV1nWZC6uCOQcQ9+m+i4r5VtfGZaA34FvJWbN3F/LWSS5tdT2H3Nii i0yGNfhBT7Zhf6Nr6fWmFGIkvlGphara/pp391Lgbq YFfnYgIcEr6h+u/5HFxUKa3EUvRtqG8+Pfiq6L65rZC80gKFHOx0OeZDz8jfwjo6suHqssyYyAC0vDkk J3Tl9DQHHue9qttIon0CiWs/t6mkmyZFkA+yLOJh/EG55eV57xQ/h5w9kZm9QjtpWLjoWxgy0E+MNj0C kpZN6ZBffIP1SRHzaFUtLxuNhTp6XEEX0jVMvzTB89 GtpT7G+XRloADZ0EsehKZBJAUvM5SKWX/FyZUWDyV/V6dpHhs9sNieqK4+Eekq0BxSbPhM3cgV/7LdL0 n5acWBNoYjRgFwlBLI3Ug1bP6CC9py78hFQFo8fjVde2e37xFT4r18vXyfgnQoE3CiypYZi++VH3oopc NI0xAkHAQ9g+tSOvhkLSGE538yfqjQ6ow2ubwFNMTF sBGsYwxNe4IZi47yoCqP+2Da9x11pmxQZJZL/hIWLusIpIexnXCB9NzdnQ3U/y2CKq1yCJ/CaKwfxHmE ptqQ3mZKY4z+B6xyzN8N8urQDXaP4bay5ZzV70sgXYGvDKRcygPuXsZdEswEk004My5PQR+h1YixLBqy IK4PrcM+78/OFm/tjr2VbC/TzgRm2bMvqh4MWmspuU T/2nJtmPQnzp4T7ORFDJFLSZ3GvBpbjtIfxSqkCwKoT6+3eXLIGbQQlTdA1K9yT9LbMrQnzJ2QbrjCRC bkK0LkwKPLgTXSv3+hhkZ7pjdzJFytkcypVpb8QVILJ4w+faKlypjxrdhhsC8FiVIvXHPs0Il+gTtmVU SWDZShi2ZQc+mGLOq/AGKqHEIdLRtXvYs0V0etYGx3 vhRFto0fpk05LiXWhqefxsSJCUnmlBZJijz6slDf4dSRiX/s3XKsyTyNLEQuJfnSQORDJH1QaOh/IlFO it infrastructure engineer+Q14dwkKoRSMRKvT9y0PbYDrWz0ncjsR2QtqcyxZM9HqkWg6wB8fJtFoCtX5bKgVFX/LOOpZwcb7Q [file] Je29CZxXcQP/x2nkbt1eg+lhJGfXercsGe6R6c+Regional Controller [file] SgCvUnL2IabDVNS2OJwhxGoR6MkXxLZUUUXpNk8iHEAotD1oelBeDNoUlt7Dm+4Gaw3sBcfNHsmTC/Carlos A [file] 8Hl9tm4+9fyeEGTqiTCgfjGykcZ/Kristian/l1mBVYtjJBz welfare worker/Qe+wupTOqjEBj4y0Ogx/if5mAQC+edyLe+wFvsYgN6tq4Y7I3hHHxV+10D1JJ6GrnUDhFfmq9l/Gr [file] P4+72Iscr6NhaSvmNTByzNxDSC9vAcdvLTMdAQ [file] CARLOS A+dhV1YSr8noXLQfIEYznVw7Cvl/VW1Pq9SwHsV1pDCUSoMiGJhGKBa7emBpiPG4NM6PUyS7t9e5prt [file] t5dtU+Al4q1mFFeuV1GseqWwgOBMd8C5HFVctj057US+oTXRq5cZ8J/xvJNSqOxDU1N1X8cFKfqqS/Walker Qz1z1ja+GKmZxb/vNMti+cjvVpXWgH3yLAg [file] 67vC10kLoMB90tp6BdiciIEzpBtGA06CCUZFrGN/Carlos A ymwcrJM8BrqHQMa+HCa/Dtykspenv0mPu/94pOj1YU5X+jm9oZ039/c5ivOS17v4q0rbornHNDlJYhaa Z/8H6MRMUbmTX99DlSnCdxc7mbXIbOL2URVCpgCvW/vuma+hw0bvHNd/zjVOZgte+xAqh0uwN8Fgtb35 zF0AYYcCC8PL68OMFT4amnJ7FLxLJTtnSJlmmCIzT+ U67Z098tFumrKUEz9vwaIrzUQKOpl3al0roS+6e5BHQlGIr8HGM0TQJRxwPHXy4YRgjm4Y4eIcBtoyal funb27bFpD9U2B51U4FnhEd8R3sw6p1fOxz2HRo31bajKC/Irns48F3M3uCxsAdNt8MwsE+oukJW1CYH gfLECOWk+gccAltAEKcILwC9aAsTtvQNRMJMo6nf5m iZF4/tbUmCSL4SyWjFFoi1UfpAdZvJ5WREkbTfWMP80mL7QHCXcKRDNLqpJpKclEfCvyTEFSfiPFT9lq dGLoWxnblVOjatRPzFDtR/D2rLzasjL1Hm8xEP2wXeWh9NHOSxp0h0uafxCR66wTjIRGsGSWQeBYyA5r mGeZPFKtVyT/Okt+G3mWdqwqXR0BshIYtMUx+Y0/ [file] 3rZ6/UaReAZhZCZZxlxjKEGUQGSFSKyGZmRwPtuDESxiN7DpS+BLOCK CLEANER/6cguCddZEq8M+kqMGD7nMAG+uF HOQJ+x86j7u69E68gwlRlza1yJArcFkJ4/W84bMxe9UE0jd30Ervx0QJ2o7ju/5/GUWHlc1vEfbpB+1P t/NU+HVjB4YBOR7dTdILmWs44vh99+pD8m6UAm0RG6 mKzvEAL21UqfNyXVAhlvBmjyqP6t711/f5vGfihF1q6ANutA4erRgNBlA90/1EvUw0k8uDrc9bRSnM1v 3mmtWHksI9203fpw3/ld19EvE7s53kqMyCBa/cac59Dc6y9OixEXKcHQiI+owuSJQPx5Jg2EU8OAfzsL oD//emPJh4Yi/QacndZBHtmbNSZxVVY6VDNUUdH/Bt BWEAhtnzxfo8AipLn6UHc/awS9dFf3qj8YUESLzlGOI4plwgmFcpvGpU+uVqnDTpxf3LcZmaxV7BoGwK BukDZnXcqECZKWjMYBSanVRxGzkHl+TS8JZOKP6g8U1cpgZaYdGFPGLokgDFg5vXi1JaIr9B/Eaul66H GQOTEOVjZLPA2J/V8XG2wNFLJCpOAHXzBiB3pmGmjS [file] LOAN PROCESSOR+Yg7XpVMU8r8IgPP7oSbg4BV5NYsTyuzjLyNewBq [file] glFP9vpcNCccRG6zHrI/u/va13+Order Expediter+wBjNv446Az+E43qFVokxYezgopsud4An9dqZ9k3QECRmZMJJ+ [file] Wf7S1cMg/rD6W7ES//6H/pXf//typesetting machine operator/tender/7PAgl46RaY7hz [file] Carlos [file] b8EVvZTVm4yqcSdSvncfa9P89w2rJo6zQsHb8ORt8doNM90xAoFZ4q9Eyt2Hx0cZDsnHzxGTdNIt++LOAN PROCESSOR [file] AgICAgICAgICAgICAgICAgICAgICAgICAgICAgICAg ICAgICAgICAgICAgICAgICAgICAgICAgICAgICAgICAgICANCiAgICAgICAgICAgICAgICAgICAgICAg ICAgICAgICAgICAgICAgICAgICAgICAgICAgICAgICAgICAgICAgICAgICAgICAgICAgICAgICAgICAg ICAgICAgICAgICAgICAgICANCiAgICAgICAgICAgIC AgICAgICAgICAgICAgICAgICAgICAgICAgICAgICAgICAgICAgICAgICAgICAgICAgICAgICAgICAgIC AgICAgICAgICAgICAgICAgICAgICAgICAgICANCiAgICAgICAgICAgICAgICAgICAgICAgICAgICAgIC AgICAgICAgICAgICAgICAgICAgICAgICAgICAgICAg ICAgICAgICAgICAgICAgICAgICAgICAgICAgICAgICAgICAgICANCiAgICAgICAgICAgICAgICAgICAg ICAgICAgICAgICAgICAgICAgICAgICAgICAgICAgICAgICAgICAgICAgICAgICAgICAgICAgICAgICAg ICAgICAgICAgICAgICAgICAgICANCiAgICAgICAgIC AgICAgICAgICAgICAgICAgICAgICAgICAgICAgICAgICAgICAgICAgICAgICAgICAgICAgICAgICAgIC AgICAgICAgICAgICAgICAgICAgICAgICAgICAgICANCiAgICAgICAgICAgICAgICAgICAgICAgICAgIC AgICAgICAgICAgICAgICAgICAgICAgICAgICAgICAg ICAgICAgICAgICAgICAgICAgICAgICAgICAgICAgICAgICAgICAgICANCiAgICAgICAgICAgICAgICAg ICAgICAgICAgICAgICAgICAgICAgICAgICAgICAgICAgICAgICAgICAgICAgICAgICAgICAgICAgICAg ICAgICAgICAgICAgICAgICAgICAgICANCiAgICAgIC AgICAgICAgICAgICAgICAgICAgICAgICAgICAgICAgICAgICAgICAgICAgICAgICAgICAgICAgICAgIC AgICAgICAgICAgICAgICAgICAgICAgICAgICAgICAgICANCiAgICAgICAgICAgICAgICAgICAgICAgIC AgICAgICAgICAgICAgICAgICAgICAgICAgICAgICAg ICAgICAgICAgICAgICAgICAgICAgICAgICAgICAgICAgICAgICAgICAgICANCjw/gXJqQ5bdlKJeszJ9 W7quAw6LCt9MTR3kr6AdCITeKQojrpWqYaiEVnYrLCNyTssRRvx1EWozFQ0BeEUnK6HdR5XbGUpmPM0J TJMtWLDajEMvOBZbRBNjJaK5XULwLUujSM5NmZHeKT ehZMAdWODzWeFxJQSxBVOeLCNuKDSaNXACGWXsPPFlDgJiGOOpAWFnOKeyJCMETPP3DEIdWbTdOPdkMJ 8Yc7JojRI2SQl+Dj7JUZ6ht0MsBEz8GYBiCW5ylb0EELzWWdXrT9IbshJ1ZLI8ACSgKe3SUVPsEWJdgH M8PPYnAIMYHhHwK6JhaT13KBQCVb0+DQplbmRvYmoN KaK4QDRvo9WdLNs2JB7LCSSoCOa0nDNeXBTSFQF5WAXgkKpmvDWQNEJgzSTsOG2ZZCY4CDxfRsGnCpQi VULdCVaiXGYFYJlBNyZjZ4Wwr0SnHpM2ASXxXjFlLStzCOEaHvN7ME74gZfzZJ5TNCUzCVNzCK64IJA0 ORHqZp8VCs4RUvPwDM5ofp4GRDQrYVBhGquQPdu2TP bvQB8BbXMiL6GfjZAmv0fBCoReK7FTVLNiNQYiBg2DLUQnGxImWWXlHUgjKH7fCDKkPWYWpFfcynH4NZ 8ISW6gkaRkWA4ZQiLbPl5fJd7PGmXwA8SoQ4SsAOMeDNYKKBkiKZ4ABEblPM8rAV5Xq4RAkGOvvA7eic 3PBXRxPSCgXolkxn6ASmihS6K2eOxbWWSbDSKhEQAT UItnAM5ROKFsFRN1YJJ4WbPoDSPDCwApW29kXF6GR6Rzf28vHlW3GCDmGoHzGKdwJG07vOtvxmWepPKh dDjkQT1BLs6+FEsqejLqNptTTojnDATYFtXfZKuPHvEvCWIyUNIfSAWvPeV0YqYjDn9RRJIcQTUvQOGk KtZmYHXvPHWoWOrgWKRuWbT0WHm4PLGrFHMsZN7YSy FmZES2FsxjWCWiKISbJFNtzd4FXUVcEGZbVRU7HkZiDFLtGOIaOZfrHDHoOKSiKVN6XFCvFYUgZV4HId KaLHSyZQNvZMnjSXMeTKOnhr7QFEBvEWObIeN6UQXrDFQjQYLuLNfeDPCiMIB6MYz3WWTeYQSnBO7TKo FtXCKkGSwkXFVnIITxPHMgkj3YQJWnAKNyMPZ2LrAd GQHkGQGwZMvcHEHfRMEoOzE5TAKvDOAjIV3FVqKzRCXdQFL8RhDqMOLoTZQxfv8XJAUyGUNvYrD7IEVh EKCwNCGbDDxhGGQtSCYuMkI0BFSoCGIuPE6VLlEyJCPaCGMdXBKpVPYdDWFbpr3YEEHyJZEmLoY3PMWn TWDhFKObFJuzSPImIORqCDE7JSOuCBEwKH9AAqBoRR StEKWzIPShZAVzAVWkfg5FDXTzQZTnKpDsSWLrTLJcRCEqZYbiQOUtQQS3TuQbWWXoPQDoXD2CJbIgBD FuLIwxOUxfVCItBFOlio8WWJYeWJCbCzBzYELmHXKlIUKhLSdpWCLnWQY4Gos5RZXeNPXlZK9FCsQjQV UcTVd0GSviAUMoDCDyol8GTGSyGJFoOVd1WmOyZYDt IHNyQXtoNPEoCYC1SEG9JCWzQCGxXJ1OWxLuSPYgBJr5QNfgHBImJEMbut5DDGAvZGQrUID2RUSwPABk JJCuSNnxYEUtZPLqBofqNWOtVBUnHV4SAsOqFRAsZhFvUzCxTCSnSTCigm0TDXJxDHPaHCWvHkHtKSGq YQKbNNecKMMePUUdGyE8SBOsMFBrGB1MZmZlOJNlTo T3GoKmPCOcYCRtop3VYYCmIOGzMil0KzAcPEReGFZcXNtqMPKbHGCgEYcuMZLxEIBrVI8PGdCjUJMfWg CgFhEbEHZpVMGhxx9DIYVpYKVkPDV3FcQgHJLcWBDtZZyuNEIoAUJ4BGGpPEGmAANrSV6YScJdRVXrPf GqVpSuPVHmTJSjkp9HUVTfDBWcIhH7BFFrMNLjCBGu ZIuaGXDqRNL1DCIpPYVdKNRoZT1AMuPxLQM7AuT4XZZgWJCxMJVzdv0LSHQkIuYdClv1JKHbOKBeUNFf BVwvXWAvMvZ3AYM4NBThIVHiWA6NXePzJWE4Tzp2RyPiRAIxVLNozh7ORDTfHpJfSRO7RiEqHYOlYYZd OWw0qvYfrWLzFHb5MP2DV2RxhcSnOVeHRp5Sj941FP S2HWAcJj0MN5glRv3xQGAxDZPZDz3SJAf3OuBlCqSdEtCkN0F2IgE8HRLhHFV4TZrnWiLlWQTmQ8Q+ID wbRTAmOLIcAbNqDAW4BYhhCMGsFiyhXPWdOWJsKtDmTV0eBUDKBc3+DMntqKJhgBxdRIRUXnX5Roy9LT wNTaZePB2EOOt= ID Date Data Source [id number] 05/02/2021 03:30:27 PM EDT [facility] Name Value Range Interpretation Code Description Data Arabella rce(s) Supporting Document(s) Progress Notes [facility] TJBLNa1sNsYZRcZz54/GQWihCUUxa4ZlHIkhDPh5MOvyPVCoO8SgFGI8vA0vRTB0XWoBPfVhQkIfZUH9 lbm [file] W5hwIaXCxgMwttUU7CBKFPL5XEXi== ID Date Data Source [id number] 05/02/2021 03:11:58 PM EDT [facility] Name Value Range Interpretation Code Description Data Arabella rce(s) Supporting Document(s) Nursing Note [facility] JAWZUn0sMhQTPmNv08/WQQlqMDBxr5DfVXloXPv5SPniFZEcW6NxRGA4uX0iCLT2AIyDZdBeRwIsCYG6 lbm [file] EmK8EAXuSKIeRYLxEoW+UA1zYYt+Yx9Uq9BjdwM2dtMjUQmpVDw2Eu5YRHVTB0BADp== ID Date Data Source [id number] 05/02/2021 03:01:14 PM EDT [facility] Name Value Range Interpretation Code Description Data Arabella rce(s) Supporting Document(s) Care Plan [facility] NSMHUj9nXhZUPxZg69/HBQldLKSpf2OjRIktZFg4HIbzVMAyJ1FmVPJ7rO1aLTF2LAfXYhPnKiVvYZJ0 lbm [file] GvSX6DYKi= ID Date Data Source [id number] 05/02/2021 02:32:34 PM EDT [facility] Name Value Range Interpretation Code Description Data Arabella rce(s) Supporting Document(s) Nursing Note [facility] RAMLFi2rEoKIBiPa69/OGRdwICKza2ViEPjmVLu1HBeaKSJoU9PqZHV4kX7cFFV7ENmCAmXlCzCeRBI9 lbm [file] Zj6HBrF5HVD9mDLzZk7GGmE1UKEEYqPxGM7OWNg= ID Date Data Source [id number] 05/02/2021 01:51:03 PM EDT [facility] Name Value Range Interpretation Code Description Data Arabella rce(s) Supporting Document(s) Progress Notes [facility] ADBDFh7qRwTEDnLb40/UFXboCBLsq6KmPUttRNi8WXxrHXCrT4QmFLX0mJ0dYIR7LSbDZaXiDeZjBYT3 lbm [file] q3US1SBND4SXWoCf6DLTVlLC6EDBRqPBPsSCEMBqYr FWIrCvOaCKIvQSVXJYjaSOJbD2KmYGN0DPNqZa3FMMNjWI4BTZWlWgKnTGM+Jb0QDLTsLU5cuvYoeYI3 NURSING ADMINISTRATOR+Il7IQQFeIIr6I7B6CNZzIRs7F5PVD0YKODIhWZozOVhtNMOyQHe0J7Q2EIFmS6CLN7Zlrueovu7+ AK5EV68DSYDfPCn7L0M5iQCuY1S6wOhRcOQ7LR0DXQ 8FiVd5iJHqbZ0+WH6IZ2RILnVhZYg1B4N7xUVoX0Y5nLyIaIG9YS7HTD9CvEMcEOOsliLhDc5hQ7EWWJ lBMaWKKEO4YE4BbRPyUS8JdVLKX7ZawTLoMn5pTNtmtYChnC6hBb2gORnuIB6VEqWVKMbUDTP1BJ1CdP TzGB4OeKMBU3SgaOKdPp5xICrqkXYbmk5+LM4OONVr Hg4LUv5+TGbvioMcAbdLWkI8EBBfo1AxCYo9OS2UNQ4omTlsJJH8Zd6MjWN2wOPvN6vKTT5KcJQiT56j wMNfBZCaNs6OPoH1ouMogO8GLO07wJJdd7M3FRJbH3nmQUnxn33kJBnzTHlUEE3zYAEPQApvYRplHHA6 TnZnutjbVNXcWm5MFmVtBUo8oO9rtDT3VBT0XmotbQ LyMWswFeSnPeQaRqO4qVpzlsu2PGatFP4vTRquesscAQVjSyl+OCceJESnADJgBaqEJWTfuU7njyP3ji CyEYkupRYnPm1wr1b2KjynDl9yUn6nHIw7NfJzIuOmDLDkHv3ijZ02GWrcrdJpEg5EBbGkLAR4R4AzCo pSREY+PXgnVVrrlWa1qVKbCHUgZd4HSCRuNQFhJFJp ICAgICAgICAgICAgICAgICAgICAgICAgICAgICAgICAgICAgICAgICAgICAgICAgICAgICAgICAgICAg OLWqCNSrARDfDKCiDYYqLISrOXLqLIMcHGPtONLkOG0PIEKlIUFcGRWyORPpBOSqOJEzAMBzNUHvWAXj ICAgICAgICAgICAgICAgICAgICAgICAgICAgICAgIC VmGOUhTEWqCZXhTBNdPZTtXHRcLJTyVEXzYVEySOStILSjXQNgUIObGH0PKJHpUWNyMDLxKYBfHLLuES AgICAgICAgICAgICAgICAgICAgICAgICAgICAgICAgICAgICAgICAgICAgICAgICAgICAgICAgICAgIC IqTJGkVHIoKPSxHQZmFUOoPKKuNMKjXW3SGWGrZVJz ICAgICAgICAgICAgICAgICAgICAgICAgICAgICAgICAgICAgICAgICAgICAgICAgICAgICAgICAgICAg TCJfFVQuVSMkSQXmBMGoXMBzBLTsRZIpWRKaMDTlHHJbHJ3AKJKuFIUnHGLaHQHyXVSnFLTsUOBgZAFj ICAgICAgICAgICAgICAgICAgICAgICAgICAgICAgIC OsMMFnXIBrOPRcIVYfZCQzNCZuZLVbIFPaPNGbKBDcDCFoTXUaUYLjNZNgAS0IJDHxOFYtGYLdKRSlQS AgICAgICAgICAgICAgICAgICAgICAgICAgICAgICAgICAgICAgICAgICAgICAgICAgICAgICAgICAgIC VyZXRcFVGkUQPkIDAbWOAyGQMpRLQlZXBgFI4HXRPp ICAgICAgICAgICAgICAgICAgICAgICAgICAgICAgICAgICAgICAgICAgICAgICAgICAgICAgICAgICAg PDZyCWJgYYJeKWUlMVDdZWLdPWJdNIHrNJLtRDAcLYJvEIFiWI2JOVSaGAKbKZThSRKpFUCwFFJmPYWu ICAgICAgICAgICAgICAgICAgICAgICAgICAgICAgIC LsSKLzZBQnUXMyUCXhFENqWQCmPYOgOZLzSVJwTDBxNGTqMXUoAAAwUPXvOGUdIL6FICZuYJCkFSGvCU AgICAgICAgICAgICAgICAgICAgICAgICAgICAgICAgICAgICAgICAgICAgICAgICAgICAgICAgICAgIC UyGDYjPQVbJXArJTMfGWYnXTXtMWVkUXBwAIQiYL2Q ICAgICAgICAgICAgICAgICAgICAgICAgICAgICAgICAgICAgICAgICAgICAgICAgICAgICAgICAgICAg JEPbYQQlINVsWKLcENXqDFBzBZMeRCPhEAMlYCNpIAWnSWRtNRWoIA8UQA46mIXsl3V8AUIqPY7tnxz/ Zm1PTYmsqeEanWUhKD2CVaZuTH4ahd0NJgLbYC7sik 8WAHuOFdQfQ6M9fNVgPJKaJJIOSzPuP78yCAwnMl51QOlkOBLiKcKcWSj2So4QIzHnG5vyTVIbMiC5PW EhNrUlGVrcQM8Md1ZfrXXlSLl+Kp9RJX8zv2EdKXesQWQuVY2hki7UNEePRxSlT4FpulS2AEU4XKAeKi 6SLYQcFEPvkXMbPwRoEUMUVzIfV7ViiF42YMUXXe3+ XOugxvZwArqRRsA0DNCoc2QnRKy6NN1JRWVnJPl6oKLkEFWgI5Zft6LxUv64VNPtWjtsWjnnYhKYDVye SCH3MGrbMoPkAhSxLLObCVl9MsMEMCvMBoQgQ5Hmr8QdFiD3WFFaFzUzHRvxWHGsQoR2JD99aEzcCI1B ANQbIIZlZR10PFQ7XTHkAn6LTz6CWqKcOL1rpu8HHl dyBLOqKrtPZko3VRseNL6GmORuQ8LndJHss2iTMaDzK3HUNNVjFWVyNs2KBCSkKtPsGHKyXOxnHG9xXT XtDLUPxOhdlzR2AY5BJC8hxtJpQW7QIgXsVu0sEn6BXwWfF2PgC5SbVTLnYKAPGDmoOI1JMDvwBR7wLX 9Kq3AQnQLqgU9bkv1DMXXxQWIpWpcocl1SKwfjS7P8 qDkeRKDdYhViFDTBKUnsRS2DVRSlEWI3TTMlBCFvFNCGYyUpF53sBC4VF4Udj59sTwW5CYZyHhCgMIuu BX85vVuqhxPcyRWwrPzcZZ3YTw8+PNwqogHjZvuDMtmsZPKJPtCzPzdTQjFwJWFiWXWqKHGlHdZ3WsNc Zw5MAAJhEHBcDAOrHdKiSFTpFMVpLKlcPNGqEJJbOZ H8FPNcKMEjKL1AVoCtFXNdGhP5TdfwPLUkXQSgvb4PWBYtBZBkWGU8EzEjKXBlWWYrLEphDOGwMHJqXp X7SFXwGVAdOX5UNbPjJVEzENI1ALHsXXDeQMGdbq0KBNWjLNUsSuMcWWIjPZLnBETgACasZDVyLFGzCz EhRVPvCQMiUS6VCsYtNBUrHTO7LPxmTIIxOQPyua4E ANAlTCIyQDj1IdBoGZWyZWBySWliDDLeYMM1BRHaCDRcEAYtTO3OWtXoYVCgLBBvYzYsBYHbPHIwje4V JRBlMAAdDtA1QSRcLYJwAUTnQMwaOSIqWPH7KXkpDKVgFBItLG2JPwJbLKZcLRgvDOaqKKEvSQZkqg9E QQSoKNItYMCaVJTrSFGtCYStKXowNTUsHED1UAa9RW DgNKLmMN0URmYdGLYoESf3XoeoPXKxCMMdel7MQEDyQVWfSVRfMXUkTUCzMHUdBTfqYXTpHRB8Eeo5QQ LvPHCgLE7TIgMyGCZhCkZ5LyndOLVaMDAqhf4ZLLXlHJJbOPskGTVaWEItREHkGJbtJJJdLBNuEBg8NP UsKYAkSH3ZHqErHRWzTsA0YhhrAGPdDKVdjz2JJVGz PIDdMgc6SiFsAMXwEYIaGKaaUPBlNEJuGBM9HDGzNBFiBP2OYrAmDMYpGcWhFipxKXXnWERuob2EeHTo eNeczz8VUToFPv4EgXdqJQI6TCikUo7yoKUrCxEnABSGZr0OrqYcPXRtHFCLRTvgAHAnBVP0DltdHYQ0 BXMzSzKfVWSiLnU0LYFaSbPnLgHeF4X2UeN5ZAUqIY IsIMvfXMYyDXY2ELQsLYO2CzQpEzZsYRB6WPa+XN5bKWj+By2Fv3GxpjX6bdXyBEalXsNrPk6VCETTW1 YNCg== ID Date Data Source [id number] 05/02/2021 01:17:00 PM EDT [facility] Name Value Range Interpretation Code Description Data Arabella rce(s) Supporting Document(s) Iron Saturation 27 [facility] Iron 97 ug/dl 50-170 Normal (applies to non-numeric resul ts) [facility] Patients treated with metal-binding drug s (e.g deferoxamine) may havedepressed iron values. Total Iron-Binding Capacity 362 ug/dl 250-450 Norm al (applies to non-numeric results) [facility] The above 3 analytes were performed by [facility] [address] [facility], ,[place] [address] ID Date Data Source [id number] 05/02/2021 01:17:00 PM EDT [facility] Name Value Range Interpretation Code Description Data Arabella rce(s) Supporting Document(s) Ferritin 9.8 ng/ml 3.0-388.0 Normal (applies to non-numeric resul ts) [facility] The above 1 analytes were performed by [facility] [address] [facility], ,[place] [address] ID Date Data Source [id number] 05/02/2021 01:10:00 PM EDT [facility] Name Value Range Interpretation Code Description Data Arabella rce(s) Supporting Document(s) Vitamin B12 324 pg/ml 211-911 Normal (applies to non-numeric resu lts) [facility] Folate 21.37 ng/ml 5.39-9999.00 Normal (applies to non-numeric re sults) [facility] -----Interpretive Information-----Folate Deficiency: 0.35-3.37 ng/mL.Intermediate: 3.35-5.38 ng/mLNormal: >5.38 ng/mLPatients routinely receiving high-dose biotin therapy may show falselyelevated results. Additional information may be required for diagonsis.The above 2 analytes were performed by [facility] [id number] [facility], ,[place] [address] ID Date Data Source [id number] 05/02/2021 12:27:00 PM EDT [facility] Name Value Range Interpretation Code Description Data Arabella rce(s) Supporting Document(s) Hemoglobin 9.5 g/dl 12.0-16.0 Below low normal [facility] The above 1 analytes were performed by [facility] [address] [facility], ,[place] [address] ID Date Data Source [id number] 05/02/2021 12:27:00 PM EDT [facility] Name Value Range Interpretation Code Description Data Arabella rce(s) Supporting Document(s) Hematocrit 30.7 % 37.0-47.0 Below low normal [facility] The above 1 analytes were performed by [facility] [address] [facility], ,[place] [address] ID Date Data Source [id number] 05/02/2021 12:25:00 PM EDT [facility] Name Value Range Interpretation Code Description Data Arabella rce(s) Supporting Document(s) WBC 5.18 x1000/ul 4.80-10.00 Normal (applies to non-numeric re sults) [facility] RBC 3.71 x1Mil/ul 4.20-5.40 Below low normal [facility] Hemoglobin 9.8 g/dl 12.0-16.0 Below low normal [facility] Hematocrit 31.1 % 37.0-47.0 Below low normal [facility] MCV 83.8 fL 81.0-99.0 Normal (applies to non-numeric resul ts) [facility] MCH 26.4 pg 27.0-31.0 Below low normal [facility] MCHC 31.5 g/dl 32.2-37.0 Below low normal [facility] RDW 15.5 % 11.5-14.5 Above high normal [facility] Platelet Count 213 x1000/ul 130-400 Normal (applies to non-numeric results) [facility] MPV 10.0 fL 9.4-12.4 Normal (applies to non-numeric resul ts) [facility] Nucleated RBCs 0.00 % 0.00-0.20 Normal (applies to non-numeric r esults) [facility] Abs. Nucleated RBCs 0.00 x1000/ul 0.00-0.02 Normal (appl ies to non-numeric results) [facility] The above 12 analytes were performed by [facility] [id number], ,[place] [address] ID Date Data Source [id number] 05/02/2021 11:50:00 PM EDT [facility] Name Value Range Interpretation Code Description Data Arabella rce(s) Supporting Document(s) 01 - Product ID Red Blood Cells [facility] - Unit Number [id number] [facility] - Cross Match Compatible [facility] - Status Info Transfused [facility] - Product Code [id number] [facility] - Blood Type A Pos [facility] - Issue Date/Time [facility] - Specimen Expiration Date [facility] - Volume [address] [facility] The above 9 analytes were performed by [facility] [address], ,[place] [address] ID Date Data Source [id number] 05/02/2021 05:35:16 AM EDT [facility] Name Value Range Interpretation Code Description Data Arabella rce(s) Supporting Document(s) Nursing End of Shift [facility] ZPVBUi7pZgPIZwOq84/JIXykFXLbz5GvASjdYFg2EMmoKVQyB0EkTAL0pU2oDPQ4OErNQtCdMdZwEXP5 lbm [file] ZrfBVQZr+vsH48/Vue0zTk7xpLEhSoxZ/zI8/p [file] ICAgICAgICAgICAgICAgICAgICAgICAgICAgICAgICAgICAgICAgICAgICAgICAgICAgICAgDQogICAg ICAgICAgICAgICAgICAgICAgICAgICAgICAgICAgIC AgICAgICAgICAgICAgICAgICAgICAgICAgICAgICAgICAgICAgICAgICAgICAgICAgICAgICAgICAgIC AgICAgDQogICAgICAgICAgICAgICAgICAgICAgICAgICAgICAgICAgICAgICAgICAgICAgICAgICAgIC AgICAgICAgICAgICAgICAgICAgICAgICAgICAgICAg ICAgICAgICAgICAgICAgDQogICAgICAgICAgICAgICAgICAgICAgICAgICAgICAgICAgICAgICAgICAg ICAgICAgICAgICAgICAgICAgICAgICAgICAgICAgICAgICAgICAgICAgICAgICAgICAgICAgICAgDQog ICAgICAgICAgICAgICAgICAgICAgICAgICAgICAgIC AgICAgICAgICAgICAgICAgICAgICAgICAgICAgICAgICAgICAgICAgICAgICAgICAgICAgICAgICAgIC AgICAgICAgDQogICAgICAgICAgICAgICAgICAgICAgICAgICAgICAgICAgICAgICAgICAgICAgICAgIC AgICAgICAgICAgICAgICAgICAgICAgICAgICAgICAg ICAgICAgICAgICAgICAgICAgDQogICAgICAgICAgICAgICAgICAgICAgICAgICAgICAgICAgICAgICAg ICAgICAgICAgICAgICAgICAgICAgICAgICAgICAgICAgICAgICAgICAgICAgICAgICAgICAgICAgICAg DQogICAgICAgICAgICAgICAgICAgICAgICAgICAgIC AgICAgICAgICAgICAgICAgICAgICAgICAgICAgICAgICAgICAgICAgICAgICAgICAgICAgICAgICAgIC AgICAgICAgICAgDQogICAgICAgICAgICAgICAgICAgICAgICAgICAgICAgICAgICAgICAgICAgICAgIC AgICAgICAgICAgICAgICAgICAgICAgICAgICAgICAg ICAgICAgICAgICAgICAgICAgICAgDQogICAgICAgICAgICAgICAgICAgICAgICAgICAgICAgICAgICAg ICAgICAgICAgICAgICAgICAgICAgICAgICAgICAgICAgICAgICAgICAgICAgICAgICAgICAgICAgICAg KDLtTGz8H8kiHQQzRSRlZY4wYTz1Zn1+DQoNCmVuZH K0pyGkrG4RYY5te3KnEIrqXDVje1GnYLd1MV6XPYOsUPivSO6NVLuyuf2JKWViURHbhSOKy2wlDuAhWY J8QKYuQbpbFH4VCWRsT6bledEhVYDgFAFCPD9FScUkN6DumN92CXETXj3+ETcoosHbPxjJNgY7TWGsh4 AiATg5BU8QKOBsNygwk8WqRcKoKIMAXSpjVC3TZTL4 UZD8UUJzOg3LKRDqR512qxJdMJ7CBw3EZvLgHS5edn1HZeXyJGRrEmmOAya9ASqdNJ5CuYNbJKjVbPNf qN5vHRZuDGFhAhYTxAanhPEwtDZLtEAaRFAqAKafzmIqFJcnVSXPJJJ8OLxoDxWtUwVnSKQyEAtgHgTR HRoZGwHyO5Gic1FwKvK0PMOcQtUaVGbuSSAsXwS9GJ 36zTwmBC5BZDNvTRJpUB49BDT2QGPiNp4MEj5SJmXsFE1lrj2FDjpbGFGtZxiCZnn5NMfhHT6ZjYPtK3 KwjWTyl9zQCnFgC4BHUTZhGBTmCl6JQWHdPcXwOREvTVhbHR0dMQEiDTCPcXjnslF6PO4ZNH2xutSvHE 7EYyUlUs0lCg7YPaLfZ7OpO3AiTQWqABPNITruCL9P RWvsOU2sAR0Ti1GCzMFptL6hup4SIIFiEGPdHqpvtk9NZeodL0G1lIklLHMiUuUtEJFZRDrxCF7VLJRi MKY2JJVsADVwTNTIFrAuV67tIG6VH8Nqf26kKsT6EFKyRlDbABudJZ83zNwgniQbmSYauMkxBN1KQq3+ DQplbmRvYmoNCnhyZWYNCjAgMjgNCjAwMDAwMDAwMD XcNvS3XxAxRu4TUKVdVPLzQTHiRfTzHBPqAMTeLHgdKXYbWKTpTHC9NFAhHZIpNI6LNfYlOJEmHcXyEG SlFJUzJVQnpy0UKFLgHFZwGII5OlVuPMSsAFNbUNmlPLEqUWVyAvN8SUObZGBrWU5PJgVlHUDlRNT2Jf AqILNoHYNuxc2FSJXlIKAnBxnkUDKwRNKhMZYlUCph ZJWhGSEzVXP1RYGeJLVkHJ2DPyLjJDYgITYxSMBjOQBnVRRmoe1PXXYdSPIqIMJ6EiWbNDJpWXYdFEvr PAYfEZU4BPIyVEJaDRWuGI3BPtZmAYImMSF7ZKYmZZSlLFXhlb9WCCGsOJQeTev1ZZIpTNZnHTVoPUyu IPMoIGA5BsM9CYXtRYWhDT4QZxJlXXJgUEz1XRFbMA TyLSMfme8ZPUExHNGtEio5CdYfFSFsSJRtYAwyJWSrSZA4BOEuXEXySGWzQU2VLxZhRZCwGYg1YPTdFJ PkIZVstz6FAELjWIGeYBIsGFRrJEPwPPWiYHcwRXUdJBO2VjXsHVJuNBZyDQ5PBtVoOVOnNmToYWErXE QcQNYjvh0KSXJqVKUcSXVpVfPgRLGsQTAvMJshUSKu XAUbUUE6BYElCTJoZT8SMpIhSEHySlP4IXYyUYBsOVCgkm3DMVPqPKCdUyJ7TDSkUJTvYBNoENidENFl TVHnWNY9CXQlNAGoXT8YJwUwVRQwEjO0WJNyVASzPAUoxf0BlLHbuMykll9EIMvYFh9VzQgjIBB6XFxv Qj5piODpSjLrWIAUKa4DnoDnPMXaCRRBEPfiQDMvXE KbYaqeICNjBRMoX5VgRJE5RLD5SpOoYXBzIWJlYZg7GiB6U0MaYGY8ERVrDBNhLXS6UZn0PmAmRIFcIG IwNWNhODk+XE2pUOv+Rt2Lv9UyszC0pkDwQTueZda1RZ0OHMCVZ2FKWr== ID Date Data Source [id number] 05/02/2021 09:59:00 AM EDT [facility] Name Value Range Interpretation Code Description Data Arabella rce(s) Supporting Document(s) 2nd Confirmation Type A Positive [facility] The above 1 analytes were performed by [facility] [address], ,[place] [address] ID Date Data Source [id number] 05/02/2021 06:18:00 AM EDT [facility] Name Value Range Interpretation Code Description Data Arabella rce(s) Supporting Document(s) ABO-Rh Typing A [facility] Specimen Expires Date/Time [facility] PATIENT HISTORY Pt Hx Checked [facility] The above 4 analytes were performed by [facility] [address], ,[place] [address] ID Date Data Source [id number] 05/02/2021 05:24:00 AM EDT [facility] Name Value Range Interpretation Code Description Data Arabella rce(s) Supporting Document(s) AST 14 IU/L 15-37 Below low normal [facility] Sulfasalazine and sulfapyridine have the potential to falsely depressAspartate Aminotransferase results. Baseline values before medication administration are recommended. ALT 56 IU/L 13-56 Normal (applies to non-numeric resul ts) [facility] Sulfasalazine and sulfapyridine have the potential to falsely depressAlanine Aminotransferase results. Baseline values before medication administration are recommended. Alkaline Phosphatase 110 mIU/ml 50-136 Normal (applies to n on-numeric results) [facility] Total Bilirubin 1.40 mg/dl 0.20-1.00 Above high normal [facility] Blood Urea Nitrogen 12 mg/dl 7-18 Normal (applies to non-nume ny results) [facility] Creatinine 0.79 mg/dl 0.51-0.95 Normal (applies to non-numeric resul ts) [facility] N-Acetylcysteine (NAC) and Metamizole em ve the potential to falselydepress Creatinine results. Baseline values before medication adminstration are recommended. Patients undergoing treatment with phenindione will have falselydepressed results. Patients on phenindione therapy should be tested with an alternativeCREA method.Toxic levels of acetaminophen may lead to falsely depressed results forpatient samples. Glomerular Filtration Rate 81.00 mL/min/1.73m2 [facility] GFR Reference Ranges:Normal Function or Mild Renal [...] of Health and the National KidneyFoundation. The [place] method used in calculating this result is traceable to IDMS standards. Glucose 85 mg/dl 70-110 Normal (applies to non-numeric resul ts) [facility] Sulfasalazine has the potential to false ly depress Glucose results. Sulfapyridine has the potential to falsely elevate Glucose results. Baseline values before medication administration are recommended. Calcium 8.7 mg/dl 8.5-10.1 Normal (applies to non-numeric resul ts) [facility] Total Protein 7.1 g/dl 6.4-8.2 Normal (applies to non-numeric re sults) [facility] Albumin 3.1 g/dl 3.4-5.0 Below low normal [facility] Sodium 139 mEq/L 136-145 Normal (applies to non-numeric resul ts) [facility] Potassium 3.6 mEq/L 3.5-5.1 Normal (applies to non-numeric resul ts) [facility] Chloride 112.0 mEq/L 98.0-107.0 Above high normal [facility] Anion Gap 6.6 [facility] Carbon Dioxide 24.0 mMol/L 21.0-32.0 Normal (applies to non-numeric results) [facility] The above 16 analytes were performed by [facility] [id number], ,[place] [address] ID Date Data Source [id number] 05/02/2021 05:16:00 AM EDT [facility] Name Value Range Interpretation Code Description Data Arabella rce(s) Supporting Document(s) Hemoglobin 9.7 g/dl 12.0-16.0 Below low normal [facility] The above 1 analytes were performed by [facility] [id number], ,[place] [address] ID Date Data Source [id number] 05/02/2021 05:16:00 AM EDT [facility] Name Value Range Interpretation Code Description Data Arabella rce(s) Supporting Document(s) Hematocrit 31.7 % 37.0-47.0 Below low normal [facility] The above 1 analytes were performed by [facility] [id number], ,[place] [address] ID Date Data Source [id number] 05/01/2021 11:33:00 PM EDT [facility] Name Value Range Interpretation Code Description Data Arabella rce(s) Supporting Document(s) Care Plan [facility] CNKALn9jLmHNVrLj03/NQNfmZPMmv7PnJFgfJDv4FLchOMVzM7FjDFB9qH3sOOS6DTiKKnEzNdXzAVUm [facility] [file] YNCg== ID Date Data Source [id number] 05/01/2021 06:29:00 PM EDT [facility] Name Value Range Interpretation Code Description Data Arabella rce(s) Supporting Document(s) SARS coronavirus 2 RNA [Presence] in Res piratory specimen by MELINDA with probe detection NEGATIVE [facility] This lab was ordered by [facility] a nd reported by [facility]. ID Date Data Source [id number] 04/28/2021 06:15:43 PM EDT [facility] Name Value Range Interpretation Code Description Data Arabella rce(s) Supporting Document(s) Nursing Note [facility] NJAPUe2rMdIUEuBc50/NKGzgXONxk2NoGBleISf1MSulRLAgD1UcWVM3jF3hONT2HJsDNoJhBuXgYJAf lbm [file] BctPkaZNBLKrLhGZg3EPkiXMUXAw3Q ID Date Data Source [id number] 04/28/2021 04:30:15 PM EDT [facility] Name Value Range Interpretation Code Description Data Arabella rce(s) Supporting Document(s) Discharge Summary [facility] ASRRNp8zKgBEEhKi12/AWXamRLYsx9UwBAqoCBm6FGxsVOUqW5ZdALU7yA4gQZE1WFvJLrJmWhUgGVOj lbm [file] ez+XKyna+W/Pcx189+V2+mk/vp treasurer+pdfxMnrIXbuyUTG [file] AgICAvRjMgMjUgMCBSDQogICAgICAvRjQgMjggMCBS FXcrTKCwVLFeAxNvPzBuFYFCBk6ANlQsGXZeKA4gftQgfXW5VFA+Qw1MFHZrXI1XnFDPI0FosVUmCVkw X4TOYL0PWCU4KC1HjPVyCL8ZyAOJA6FnrNCoHr1zVMKnt8IoYv2tY9KQKPMOSXGrCIljPWtiFSCkKRn9 Q7A1VPYyN6GRZ829eHZfcFk0Za0sP5PQUGaZFmGgCY hyATxjAKPjRTo6J8Y2JCLhV5VMU3GaRsXxmqBfI9C+OqAxZFVLJP1CNOIXKBy9W7Z5eHTqN8G3oTwZpI L9UI5JSJ6VlTJwsMGvx86+NtJMCoTrLKIiJ6RZIKNIFkOwQLhmKWudMRXoSVh6H6J3KABbR2GMT2qvH5 h0ZW4+DdBYOtNmJUMaQa7VQjVuRv7SKbFuUV7zwh4P UfSoVYTtIbkWXro4R4vibqc0qVBxQvL2B1V1BbQ6nHGzHV4CC6R7nTWeMFM2THGecER+Vs7Sg8XtUBBs HCi6V8nqUXAjUSDkBnVomC95I++9cfkepBZ4R8u2MZZNzBIhkHnIprQpC9lITOQ2z6P2RLd/Js1ADFR7 eVi9bBHyLYRwEIx9gX8kfPf8JcXdDD42AEUiKMbmeD 5yQqe4J2Ctg9SrBj1hGa8hpEQyZq9HDnPaNVL7obXtXtKPKrG3iPtnunvxLSY2E8m5cTA9Gd65r0ulof Tnu1NtUiL2XBjdFTKbZkFncgRoIRN2mbByoG0xoqNzSk9JEYQuPMgvqcVyTpIRZd8IAxEnKP79GbmatB 1ldGE+DQogICAgICAgICAgICAgICAgICAgICAgICAg ICAgICAgICAgICAgICAgICAgICAgICAgICAgICAgICAgICAgICAgICAgICAgICAgICAgICAgICAgICAg ICAgICAgICAgICAgICAgDQogICAgICAgICAgICAgICAgICAgICAgICAgICAgICAgICAgICAgICAgICAg ICAgICAgICAgICAgICAgICAgICAgICAgICAgICAgIC AgICAgICAgICAgICAgICAgICAgICAgICAgDQogICAgICAgICAgICAgICAgICAgICAgICAgICAgICAgIC AgICAgICAgICAgICAgICAgICAgICAgICAgICAgICAgICAgICAgICAgICAgICAgICAgICAgICAgICAgIC AgICAgICAgDQogICAgICAgICAgICAgICAgICAgICAg ICAgICAgICAgICAgICAgICAgICAgICAgICAgICAgICAgICAgICAgICAgICAgICAgICAgICAgICAgICAg ICAgICAgICAgICAgICAgICAgDQogICAgICAgICAgICAgICAgICAgICAgICAgICAgICAgICAgICAgICAg ICAgICAgICAgICAgICAgICAgICAgICAgICAgICAgIC AgICAgICAgICAgICAgICAgICAgICAgICAgICAgDQogICAgICAgICAgICAgICAgICAgICAgICAgICAgIC AgICAgICAgICAgICAgICAgICAgICAgICAgICAgICAgICAgICAgICAgICAgICAgICAgICAgICAgICAgIC AgICAgICAgICAgDQogICAgICAgICAgICAgICAgICAg ICAgICAgICAgICAgICAgICAgICAgICAgICAgICAgICAgICAgICAgICAgICAgICAgICAgICAgICAgICAg ICAgICAgICAgICAgICAgICAgICAgDQogICAgICAgICAgICAgICAgICAgICAgICAgICAgICAgICAgICAg ICAgICAgICAgICAgICAgICAgICAgICAgICAgICAgIC AgICAgICAgICAgICAgICAgICAgICAgICAgICAgICAgDQogICAgICAgICAgICAgICAgICAgICAgICAgIC AgICAgICAgICAgICAgICAgICAgICAgICAgICAgICAgICAgICAgICAgICAgICAgICAgICAgICAgICAgIC AgICAgICAgICAgICAgDQogICAgICAgICAgICAgICAg ICAgICAgICAgICAgICAgICAgICAgICAgICAgICAgICAgICAgICAgICAgICAgICAgICAgICAgICAgICAg KPElBXGhYFJcYHZlCSWaFHPsXIXmCPDrQWg2C9ceLVAaAIZnKE7yLLz9Ba4+AZwLZyBzNXW3cfZovF9I RF4bo4GuPNvyNXNgc8NdMZu3EW3RDJItDLcpZH0KKD lruf8QDJHtOPTojASAo9dhZmVnUSA3JJFoAgijQO5NRSWmE9loihDbAFMwDVKTXTvkEVIRQWirSBCFMI QtKHIbTnMkZnBdNTTyDL2FAHEbU762qlYxRD0TZd3CNfWzIG5dmg6DIpSlZKQcIbsCBap7OVgiVL1OeL HsyPIiBXDkKMIULkAyO0vtd3CbRkOtAEAXSDllNZ3W a7UduZKvSSb+Wy9KPP6xt1KeCXcsWGAeAN3fjc8ROKbXCwYfP4ZdyPmgRBLyc7QoHLUrEOAFfB1aOBX2 PKK3AUBlrvLkY6brig61CZWVIMNglRH7LlWtDqYxSyWwQMI1IhmvID8yIOsyOR4ZLPN1SUfiFTMtNKAq R0wXEuOjYDhvOQAmeSaxAN7BZfGnE7TaacNycLBfSI AwIFINCj4+AIoqksMoQjuPAuB9TGNbo5WfFDd5UD5SGHQpGOtoCX7ELSQenW4dKOroPV0GCjWxFgTyOC KYPoRkB66ftKJsOGf3M2VqYvHvRXRmExozLJUpVDcqJdKsQUBtPePcKTppUS2+ID4+WVsgUR8QZJxgzy XmBWPmUk0FRBIlVWKhQK0cUQNxJZQrC2J5dZxbXFDS YuWfQ9odsprwWY9gBOXcU167sUztxgZjLEI4DOEoSt5EDBXpYXC9ZKCyoZSkMxOyXDOSAWapIE0ZmIEz UXV3lX7pNMejCRNcHPMhZ5aKFyOlrPmoYK84bBewtiWuzTVnNQg+Ny2JVX3sn8AmCAv2omLrMNgpYRT9 LOwnAQLqRVCoGBHjAFA2PUU2QXKPMiIhOGFjFKScLO iuCBBaVGYdlz8AZPXuVJXxYTG0ToCsXXWwMEIlAQxeCLGeMCBwIMD1LGWhHTDbVL8KSaDlLVUmSPXyXC rgSDRgJFCiqa5EKLPuHWQoMtQ1SPMvDWHhQERgVUhzWQZoJFWvGdkcNTKaVBOtRE5QAfUaXUQsALY8FA QcQBXdPEQbqi8QAUGeNZCbSVsyPaHsWFWfYZRhLPog IEQkLCJ6CuDdXJOvLJYvKF6HDwFfBQFaOSw5EkWyDLOgTHYvrd5VRDKpHJSgZHt0PHLyDAQwBLCfTAho DUBoERQcHWmcLAQfDKYyUT9DEcYmINQmLPJvWgHxQAViEKRrih4CXAItUEEkPzGoJgMpYQQvPYMkFCay NRQeUOH4REu1OUHaAVEeYI0HWkQvUTCdSQUyYYkkBD JdXBYnzi2PDWJzONJaUQP9GOWoLNGtKGPaOZgaMRFfFJE6QGZ2GJYgTZPkAF9OWvHeFRGsKAS4WSRxSI XwAGLfkc0YZJOcGKGtGTybJKXtEVDbHXNxXCedXSXlQSR9USpgYPVpHTIsIK1CGpGsMGTrLQpkTZNgVW YjJRVgav7PPELlTSCmTyN8PNOdLROcXHPmXXzfKFDx HJL3RoY1CQNbXOJzZJ8WMsOkFDNmKFj2HgWjIJDkQTSyqt2RWDDbXVEfTVKuTEKbRLWhSDSxEWodQFXg TLV3UEqkQQJbIJRuEK2CAtCmSYMyCDa1JJApJPIoOSVxpo3WJNSzBPDeJHy0RAUdNTPcOUUlJEsiGUVf UJSkLRY6KHMwHWVyRY8TGnYtTECmJxMbPBXxFGWwQA Kmdl3OHDLhRVKrQUCvXKCcGAKxCYRvBSnnURJfAISdWUX8DGDpHJUjKC4WOlVbLSRwOnJvNKSvNYExIU Isxq4TUHWmOPGqMcI3PVQmVKEkJZGpHOwrRKExWIOiVIGyATTlFXBuYR7CQgDyHCasHNGBQxe0UChjI7 r2BDNpRh2MI7Rva7OxTaZoBYMRIRxeCI2xgkZlLWJt Rp7MJ8dDHivsCVCzUujpTiQqMgR1NzUeHCJ0NOnhBHyuZOK9MTNaSo7qWSJxTkGhKUZbEHJkOlJzMnK8 PRNdKUAaV1R4PSp4TAIcFzUvFY2JSv8JBrC9HUV9zSZtDn2CMmN1YJHBMjDxQO4PMXv= ID Date Data Source [id number] 04/28/2021 03:03:23 PM EDT [facility] Name Value Range Interpretation Code Description Data Arabella rce(s) Supporting Document(s) Care Plan [facility] NANLBk9uVpPIOnOw64/YIBanXUDvi9TwGVuwZTx2SXsaOTZuS8UgDKG2jH3mQNS3JLoZNyInZeYcTZVo lbm [file] DQo= ID Date Data Source [id number] 04/28/2021 12:53:00 PM EDT [facility] Name Value Range Interpretation Code Description Data Arabella rce(s) Supporting Document(s) Glucose, Fingerstick 131 mg/dl 70-110 Above high normal [facility] The above 1 analytes were performed by [facility] [address], ,[place] [address] ID Date Data Source [id number] 04/28/2021 11:25:13 AM EDT [facility] Name Value Range Interpretation Code Description Data Arabella rce(s) Supporting Document(s) Nursing Note [facility] VLQGRc3hLsTVKoUd92/WNPxiSZXyr1QrYBbaBJd6MFvgTTZvO4FuDJJ2kX9xIAM7BSqGNdAmHrJgMQPo [facility] EqKfeRSiFeALXiUuxHXeZtWQspBgtdnFTgTZ0NmZU0ZUPaN84oBWDvYFLcP2SiKByfFp0+LJccFRY8ja SteB2JFPGEXEfCVxNPjw/U/qFCGwAX2a2nZTOpJVCPZFAPkIh2KDVTQuNzYMkgf1922h2rPT4TEMOXyo QdeWY+zzeHvQHwfz+hpSVjDPLP+lFbATdjePsGKrVE [file] NRBSOmFpAYCcFKuhWNXCWs0J ID Date Data Source [id number] 04/28/2021 06:07:30 AM EDT [facility] Name Value Range Interpretation Code Description Data Arabella rce(s) Supporting Document(s) Nursing Note [facility] OQESFs3xEcZYIjUz48/LOOloKYQfq1XoYQuhFXc7BBxuOHIeL1YlZKQ6qY8eRBF1KWsYGuEaKjScSAMb lbm [file] HlAXJkZAFrXSd2FWQwEyWsNZQ3GyYrPp8rADLLAd9+TVmjjFVhzLmxWUCOIqYpUWY7TLlvTKNDAt4D ID Date Data Source [id number] 04/28/2021 05:35:00 AM EDT [facility] Name Value Range Interpretation Code Description Data Arabella rce(s) Supporting Document(s) Glucose, Fingerstick 72 mg/dl 70-110 Normal (applies to non-num madiha results) [facility] The above 1 analytes were performed by [facility] [id number], ,[place] [address] ID Date Data Source [id number] 04/28/2021 05:43:00 AM EDT [facility] Name Value Range Interpretation Code Description Data Arabella rce(s) Supporting Document(s) AST 126 IU/L 15-37 Above high normal [facility] Sulfasalazine and sulfapyridine have the potential to falsely depressAspartate Aminotransferase results. Baseline values before medication administration are recommended. ALT 193 IU/L 13-56 Above high normal [facility] Sulfasalazine and sulfapyridine have the potential to falsely depressAlanine Aminotransferase results. Baseline values before medication administration are recommended. Alkaline Phosphatase 172 mIU/ml 50-136 Above high normal [facility] Total Bilirubin 1.30 mg/dl 0.20-1.00 Above high normal [facility] Blood Urea Nitrogen 7 mg/dl 7-18 Normal (applies to non-nume [place] results) [facility] Creatinine 0.75 mg/dl 0.51-0.95 Normal (applies to non-numeric resul ts) [facility] N-Acetylcysteine (NAC) and Metamizole em ve the potential to falselydepress Creatinine results. Baseline values before medication adminstration are recommended. Patients undergoing treatment with phenindione will have falselydepressed results. Patients on phenindione therapy should be tested with an alternativeCREA method.Toxic levels of acetaminophen may lead to falsely depressed results forpatient samples. Glomerular Filtration Rate 86.00 mL/min/1.73m2 [facility] GFR Reference Ranges:Normal Function or Mild Renal [...] of Health and the National KidneyFoundation. The [place] method used in calculating this result is traceable to IDVT standards. Glucose 77 mg/dl 70-110 Normal (applies to non-numeric resul ts) [facility] Sulfasalazine has the potential to false ly depress Glucose results. Sulfapyridine has the potential to falsely elevate Glucose results. Baseline values before medication administration are recommended. Calcium 8.2 mg/dl 8.5-10.1 Below low normal [facility] Total Protein 6.5 g/dl 6.4-8.2 Normal (applies to non-numeric re sults) [facility] Albumin 2.9 g/dl 3.4-5.0 Below low normal [facility] Sodium 135 mEq/L 136-145 Below low normal [facility] Potassium 3.6 mEq/L 3.5-5.1 Normal (applies to non-numeric resul ts) [facility] Chloride 108.0 mEq/L 98.0-107.0 Above high normal [facility] Anion Gap 8.7 [facility] Carbon Dioxide 21.9 mMol/L 21.0-32.0 Normal (applies to non-numeric results) [facility] The above 16 analytes were performed by [facility] [id number], ,[place] [address] ID Date Data Source [id number] 04/28/2021 04:59:00 AM EDT [facility] Name Value Range Interpretation Code Description Data Arabella rce(s) Supporting Document(s) WBC 5.64 x1000/ul 4.80-10.00 Normal (applies to non-numeric re sults) [facility] RBC 3.80 x1Mil/ul 4.20-5.40 Below low normal [facility] Hemoglobin 9.9 g/dl 12.0-16.0 Below low normal [facility] Hematocrit 31.6 % 37.0-47.0 Below low normal [facility] MCV 83.2 fL 81.0-99.0 Normal (applies to non-numeric resul ts) [facility] MCH 26.1 pg 27.0-31.0 Below low normal [facility] MCHC 31.3 g/dl 32.2-37.0 Below low normal [facility] RDW 14.4 % 11.5-14.5 Normal (applies to non-numeric resul ts) [facility] Platelet Count 253 x1000/ul 130-400 Normal (applies to non-numeric results) [facility] MPV 10.5 fL 9.4-12.4 Normal (applies to non-numeric resul ts) [facility] Neutrophils 56.6 % 40.0-74.0 Normal (applies to non-numeric resu lts) [facility] Lymphocytes 32.1 % 19.0-48.0 Normal (applies to non-numeric resu lts) [facility] Monocytes 7.6 % 3.4-9.0 Normal (applies to non-numeric resul ts) [facility] Eosinophils 3.0 % 0.0-7.0 Normal (applies to non-numeric resu lts) [facility] Basophils 0.5 % 0.0-2.0 Normal (applies to non-numeric resul ts) [facility] Immature Granulocytes 0.2 % 0.0-0.5 Normal (applies to non-nu meric results) [facility] Nucleated RBCs 0.00 % 0.00-0.20 Normal (applies to non-numeric r esults) [facility] Abs. Neutrophils 3.19 x1000/ul 1.92-8.31 Normal (applies to non-numeric results) [facility] Abs. Lymphocyte 1.81 x1000/ul 1.20-3.70 Normal (applies to non-n umeric results) [facility] Abs. Monocytes 0.43 x1000/ul 0.14-0.97 Normal (applies to non-nu meric results) [facility] Abs. Eosinophils 0.17 x1000/ul 0.00-0.76 Normal (applie s to non-numeric results) [facility] Abs. Basophils 0.03 x1000/ul 0.00-0.22 Normal (applies to non-n umeric results) [facility] Abs. Immature Gran. 0.01 x1000/ul 0.00-0.02 Normal (appl ies to non-numeric results) [facility] Abs. Nucleated RBCs 0.00 x1000/ul 0.00-0.02 Normal (appl ies to non-numeric results) [facility] The above 24 analytes were performed by [facility] [id number], ,[place] [address] ID Date Data Source [id number] 04/28/2021 02:02:18 AM EDT [facility] Name Value Range Interpretation Code Description Data Arabella rce(s) Supporting Document(s) Care Plan [facility] KAYCAx7jIqZCPmYa38/OCZszWBApp4WzIAgkVJk6SLuoIYRpC5FcMKI2qK8jPDF8OSsXAtKqVmBgVDRg lbm [file] AzjKcRbNeYlblmfuDT34AI5Q74JucZTy0ZZoU/F/welfare worker [file] hJT+zwSvrBDo+dW1YH7po5iw5zqPp1ue7KAnO48J/carlos a/6XzWBArsnKtc8pLaoAiWHZfqrpVoS9HdX84Z [file] K2SBQZNgQpTN9IQMq= ID Date Data Source [id number] 04/28/2021 12:07:00 AM EDT [facility] Name Value Range Interpretation Code Description Data Arabella rce(s) Supporting Document(s) Glucose, Fingerstick 80 mg/dl 70-110 Normal (applies to non-num madiha results) [facility] The above 1 analytes [facility] [address], ,[place] [address] ID Date Data Source [id number] 04/27/2021 07:16:45 PM EDT [facility] Name Value Range Interpretation Code Description Data Arabella rce(s) Supporting Document(s) Nursing Note [facility] DZJHKj2pHuUVZzVz30/EEIxcORFyv6JwVTrgYNm7XCzgKMJqL3SzFEZ6wB6rMTN5RGnTPjApGqKiRKN4 lbm [file] N9mWXqSy1APxEuNIUNFcVlRS8GSSz= ID Date Data Source [id number] 04/27/2021 05:52:00 PM EDT [facility] Name Value Range Interpretation Code Description Data Arabella rce(s) Supporting Document(s) Glucose, Fingerstick 81 mg/dl 70-110 Normal (applies to non-num madiha results) [facility] The above 1 analytes were performed by [facility] [address], ,[place] [address] ID Date Data Source [id number] 04/27/2021 03:06:47 PM EDT [facility] Name Value Range Interpretation Code Description Data Arabella rce(s) Supporting Document(s) Progress Notes [facility] MYIFCm2sMzVHPvRj11/DCHagIFExs8GsFVshMGv2EZqxYHZcU8IqBGZ8mD6qRFN3TBuASvDbNhDtEDX0 lbm [file] bzITFSDo5U ID Date Data Source [id number] 04/27/2021 02:37:54 PM EDT [facility] Name Value Range Interpretation Code Description Data Arabella rce(s) Supporting Document(s) Progress Notes [facility] UXWYOq1lRsTTGkMx21/WJDpdOOOif1VqPLszIIk0KYcrFPPtO2BmDDE2hK3bRLK9PViXOyUcOkKyGAX1 lbm [file] AgICAgICAgICAgICAgICAgICAgICAgICAgICAgICAgICAgICAgICAgICAgICAgICAgICAgICAgICAgIC YjHIEwVZNcNJFhVRCkDLSmIQApHPNzETBuRMLoHHDoJCQzYLHlDB9CZRHyMCTsLIOjLSLjLRYyLASdDJ AgICAgICAgICAgICAgICAgICAgICAgICAgICAgICAg UKYoUYLtAWZvAXXgPUHmUOQxJPWjSQWhVUCgLLTyOPXjQXTsKWAsLFMwFAQyAJThCD2GXWGiOEGjNHCq ICAgICAgICAgICAgICAgICAgICAgICAgICAgICAgICAgICAgICAgICAgICAgICAgICAgICAgICAgICAg ICAgICAgICAgICAgICAgICAgICAgICAgICAgICAgIA 0KICAgICAgICAgICAgICAgICAgICAgICAgICAgICAgICAgICAgICAgICAgICAgICAgICAgICAgICAgIC LtQRBqTHBmXAMzLHCqOQAtGCYuFCCqTZFpTMGjVUNeLSQeHJVoZICyVX4AKIAeVOYdHDUnGQTmRUTmSM AgICAgICAgICAgICAgICAgICAgICAgICAgICAgICAg HAHfSJWlJRFyUHXrSNTbUKDxKVQtUMGhWSKqPOBuMIGfXLHgQQPtBFPxIIBdRZWxYZVhYF4DGQViJZPc ICAgICAgICAgICAgICAgICAgICAgICAgICAgICAgICAgICAgICAgICAgICAgICAgICAgICAgICAgICAg ICAgICAgICAgICAgICAgICAgICAgICAgICAgICAgIC LuPQ7RARIbGVEpUGMhNEGjIGAeIIBzBJJzSFUlATTtWFOqDGDsPQLjNQNkHLExQPXzANVuGKLnYCJzBM AxSCPfDSSmYIKiWYXdAWIzUTUhJAJvLCMsTWYdTKXkORUcVZUlPDObTJYfME3BZJFoWPElMMVaBHDmME AgICAgICAgICAgICAgICAgICAgICAgICAgICAgICAg QJHbTKDsVFJuAGQoCIWbDXPkZLNmYOCgMZHrLVZmKUMjUVQjNADjCWDrBXLuRQZxBKRnFRAsZT0THJLl ICAgICAgICAgICAgICAgICAgICAgICAgICAgICAgICAgICAgICAgICAgICAgICAgICAgICAgICAgICAg ICAgICAgICAgICAgICAgICAgICAgICAgICAgICAgIC OcEIDrKW9KAACsEFGaYGDjPJScIYOpSJMqIUAtNGXvEMIcWSXgIGIgCEXnATUaJODnVANlKDFxIQYmEH PwZPCwOHIcYWWrMYNzCWFxIQUgPSLtTULkBEHyUNCjNJFsSPKuPGTaBAKzWMBaXU0EYW84wLCoo4G3XC SsMC4qrgf/Vw9ANGhzrrSfcXGsCN0AAoRjNW9ykp1B NlJiHX0xtt1TXBrURiPwI9L2iTYoRPQaFMRLUbIfD97mGBwyTy93OKrcXXObYjHoVDm0Gb8IIpDwT1ur MHCwHyB3AEApPrF4BJEyVkAbDZrwUV4Lp1HllSErDFp+Bc2EFU4tv4PgRKitFFSeIO6aiv2ZKGiLRySo W6CudfE6PNY0ADAfAq8JSWUnBHCenSQzQuCaFESNAu CaZ8KapI32QDQJPr9+KExdwzVrNsyCPxO1TJPas1FpREv0LE4WAINnLVw6kKIbEXCxF9Awg2ZmSn63ED GpWoqeIRxbDGMXkJHouPZqxosiAPCVQyFuZKQhAD0xCS5sFITrFQIaJwC0SLCUGD1PUIOcVWTikZKiDP QtJWWFDK6CBWbpGIQ6IkydosEhuOJsLFulQJ9JADEa bnQgMjUgMCBSDQo+Ny0ZFV0xg4IkCCvtVrMeGE9ufr3LFLoXQyTbA1Z8pAUzT3I8AJkvYa0XHVAmQDUk FuLkMUUOBFtwKZ9VCX9qrjD9GQ6AyOCeGNHuKYQugVBsFJi5G17atCHqNSchXT4XDJH+Mau+Gt2TVQHr FBRyEUAxOgQfLGINTuKuP6RuW6MTa1NbH5IvWR90cR jusbRcAVbiYY0WAZ3pRSIuXIIKTS1VmXZuiF4rwqNlZYPzHQOWNcAjB66wvBIdPPJcVUS5QZBgJr2DOO MbJ1LzdqQzkHudqkIhUTVfTPZTPC3HWYsxhuQjpJXnrUonLA74lEzbKZ6RGo3HLzYbNS3wrj1UiSQpFb 3OEKKrWU0ZARAjFUStEFPtDBN3VETjRbTsPIwfHGEi IUZhXZC3TMKvYUXaJZ2YNyPyPXBiYUI8QUWiYMYqTMPeeg2DUYBnMAUpNumcAsRyZJZbQUVqSCjiVTRn JJPiDBB1PUJnALXbQC2RSpMyTXShLCU5PXxlHARrXWDyrw6SXTKtUIGyGtPrFVHlOLJvLQJjXYiiLQXk NTOiAFi7WIAwLVOlJX3IVrJoAXAfMWXaUUzfJAPvRX Qdby4XGTJqDYStKAL0LhMkLFEwCJYwGMuyOUWyNKW5OdS6QVTcEQShOZ1VIiCwKOQmBMD8SANqYPMtTK Blrs2RYJFwGPYoCnJjMxLwSVVfMIZdGVnlBVDoSSB3KtOyGFKvZIPzML7HAfMzOZJeVIO3SRJsZHTxHI Ffcp9KAEMxEFKaNcr2SDCaQODdOZJeQBagLHBxDDF2 NNYjWWPyEHApCI9ZNwDzFBHeWDazDexsYNTcMOHtmp4HEHVuPCIgNCN8UGWhFBTnJXPqCXprWOCjULG8 Ccg7OPAdMQClXB7GOnEfZQNyCGk3RoUpJRRoWNIobk8ZVYYzABRnKBWtTAExAEQyWNUjCGauHGMcTZWu TyQ3WRQnXRSfLL6QYfOzUINsIMK7PrbeFHQwRCSgem 8MVDVhIBElDEV0BnReIAPrGYDkUYhfQZDaJQSmHMViLWQyTVEsNH9WCrJxFUDfEGA8DPHgWEAoGIKefi 8OVAMbSQBaWfY6ZpVwRSRfLSNqMIo5foJnlUXyIRf7IX4LT4LctfCjRomJOx2Pl206CTG5IDYfDy5NL2 rlVq6bALZnIGSVAs4KOGk9DgicK9HnYiHxG0VxENp3 MrtjTZD1WjArOZNkGEB0UpK+VWh8L7L9GtUiAHZ6PuQ7UIspPjGgPrA7KKPlBJH7BgfxDt9mKFEKAf2+ WGsfzBEfdJyhOIQLFeJhWfq9CZupTBIJIh5D ID Date Data Source [id number] 04/27/2021 02:46:00 PM EDT [facility] Name Value Range Interpretation Code Description Data Arabella rce(s) Supporting Document(s) Ferritin 17.7 ng/ml 3.0-388.0 Normal (applies to non-numeric resul ts) [facility] The above 1 analytes were performed by [facility] [address], ,[place] [address] ID Date Data Source [id number] 04/27/2021 02:46:00 PM EDT [facility] Name Value Range Interpretation Code Description Data Arabella rce(s) Supporting Document(s) Iron Saturation 42 [facility] Iron 186 ug/dl 50-170 Above high normal [facility] Patients treated with metal-binding drug s (e.g deferoxamine) may havedepressed iron values. Total Iron-Binding Capacity 440 ug/dl 250-450 Norm al (applies to non-numeric results) [facility] The above 3 analytes were performed by [facility] [id number], ,[place] [address] ID Date Data Source [id number] 04/27/2021 02:46:00 PM EDT [facility] Name Value Range Interpretation Code Description Data Arabella rce(s) Supporting Document(s) AST 350 IU/L 15-37 Above high normal [facility] Sulfasalazine and sulfapyridine have the potential to falsely depressAspartate Aminotransferase results. Baseline values before medication administration are recommended. ALT 301 IU/L 13-56 Above high normal [facility] Sulfasalazine and sulfapyridine have the potential to falsely depressAlanine Aminotransferase results. Baseline values before medication administration are recommended. Alkaline Phosphatase 227 mIU/ml 50-136 Above high normal [facility] Total Bilirubin 1.50 mg/dl 0.20-1.00 Above high normal [facility] Blood Urea Nitrogen 8 mg/dl 7-18 Normal (applies to non-nume [place] results) [facility] Creatinine 0.70 mg/dl 0.51-0.95 Normal (applies to non-numeric resul ts) [facility] N-Acetylcysteine (NAC) and Metamizole em ve the potential to falselydepress Creatinine results. Baseline values before medication adminstration are recommended. Patients undergoing treatment with phenindione will have falselydepressed results. Patients on phenindione therapy should be tested with an alternativeCREA method.Toxic levels of acetaminophen may lead to falsely depressed results forpatient samples. Glomerular Filtration Rate >90.00 mL/min/1.73m2 [facility] GFR Reference Ranges:Normal Function or Mild Renal [...] of Health and the National KidneyFoundation. The [place] method used in calculating this result is traceable to IDMS standards. Glucose 86 mg/dl 70-110 Normal (applies to non-numeric resul ts) [facility] Sulfasalazine has the potential to false ly depress Glucose results. Sulfapyridine has the potential to falsely elevate Glucose results. Baseline values before medication administration are recommended. Calcium 8.6 mg/dl 8.5-10.1 Normal (applies to non-numeric resul ts) [facility] Total Protein 7.3 g/dl 6.4-8.2 Normal (applies to non-numeric re sults) [facility] Albumin 3.5 g/dl 3.4-5.0 Normal (applies to non-numeric resul ts) [facility] Sodium 136 mEq/L 136-145 Normal (applies to non-numeric resul ts) [facility] Potassium 4.5 mEq/L 3.5-5.1 Normal (applies to non-numeric resul ts) [facility] Chloride 108.0 mEq/L 98.0-107.0 Above high normal [facility] Anion Gap 12.0 [facility] Carbon Dioxide 20.5 mMol/L 21.0-32.0 Below low normal [facility] The above 16 analytes were performed by [facility] [id number], ,[place] [address] ID Date Data Source [id number] 04/27/2021 12:43:26 PM EDT [facility] Name Value Range Interpretation Code Description Data Arabella rce(s) Supporting Document(s) Consults [facility] PITXBp5oLlXPEfIb97/QSNhgYQNxh6NhUGmjKBa3LFxrKGPbO1KfCJV4iQ1jLIY2SStKRqFdGtAnPVY4 lbm [file] AgICAgICAgICAgICAgICAgICAgICAgICAgICAgICAg ICAgICAgICAgICAgICAgICAgICAgICANCiAgICAgICAgICAgICAgICAgICAgICAgICAgICAgICAgICAg ICAgICAgICAgICAgICAgICAgICAgICAgICAgICAgICAgICAgICAgICAgICAgICAgICAgICAgICAgICAg ICAgICANCiAgICAgICAgICAgICAgICAgICAgICAgIC AgICAgICAgICAgICAgICAgICAgICAgICAgICAgICAgICAgICAgICAgICAgICAgICAgICAgICAgICAgIC AgICAgICAgICAgICAgICANCiAgICAgICAgICAgICAgICAgICAgICAgICAgICAgICAgICAgICAgICAgIC AgICAgICAgICAgICAgICAgICAgICAgICAgICAgICAg ICAgICAgICAgICAgICAgICAgICAgICAgICANCiAgICAgICAgICAgICAgICAgICAgICAgICAgICAgICAg ICAgICAgICAgICAgICAgICAgICAgICAgICAgICAgICAgICAgICAgICAgICAgICAgICAgICAgICAgICAg ICAgICAgICANCiAgICAgICAgICAgICAgICAgICAgIC AgICAgICAgICAgICAgICAgICAgICAgICAgICAgICAgICAgICAgICAgICAgICAgICAgICAgICAgICAgIC AgICAgICAgICAgICAgICAgICANCiAgICAgICAgICAgICAgICAgICAgICAgICAgICAgICAgICAgICAgIC AgICAgICAgICAgICAgICAgICAgICAgICAgICAgICAg ICAgICAgICAgICAgICAgICAgICAgICAgICAgICANCiAgICAgICAgICAgICAgICAgICAgICAgICAgICAg ICAgICAgICAgICAgICAgICAgICAgICAgICAgICAgICAgICAgICAgICAgICAgICAgICAgICAgICAgICAg ICAgICAgICAgICANCiAgICAgICAgICAgICAgICAgIC AgICAgICAgICAgICAgICAgICAgICAgICAgICAgICAgICAgICAgICAgICAgICAgICAgICAgICAgICAgIC AgICAgICAgICAgICAgICAgICAgICANCiAgICAgICAgICAgICAgICAgICAgICAgICAgICAgICAgICAgIC AgICAgICAgICAgICAgICAgICAgICAgICAgICAgICAg ICAgICAgICAgICAgICAgICAgICAgICAgICAgICAgICANCjw/vUYxQ9trxNDojcM8D1ioPo6GJv0BKR0y t3HcKVNaESscylKqEsoUAyVhZGKfXdwKXdh6PDvlNG8SmLMwT5VsZ2OwXFiqND2JASHaZTZcvNRePJUm CXWsFbT9YQGrCOlmNM3MdDNfZDqoMTPdDQBgTmCyOI UeDEGyAPNvUTMhUIFEYBFiMOGjHzBuGNXjRSSqBMftNEDBXJ8GJkFhA1VypW32TFwJSa1+DQplbmRvYm iMStAdATDfn7WpSPh8PN1SQVHgYbcbw8XtRQCxFUQQTDxkTY2VBDL5TFHpUJUmPg0LIQAlH878wbXzWC 5ZYc5FLiQhBC3hrz5VTMKvDSQjCriBHgr3WQfkTS7P uBKsHTfFo07dvRp8wiUtpAMRsHxrlXBaGMBqT0CvEdVkNRLGPLRlhYF6RlH1LfPhHtBmMPQ0BHzlPV5p VDycFZ6BMFM3ZPdmUCPpHJKdB1fUIyYbEXbsCDAtvIleKA0GPgRjH2GzaiBegPE3DOLcHHHLCo9+DQpl hyWcLraSDmAxBPOjb2GjMMq3YU9GWLFxJEutDR3RVX JeeH7eIFnyPM2XFdOxRTQeUXDOLiWjF00bzPNcCPw2V0CzRpKcOITwTloiDJOeQNmfDfXeTANtQxXiHP ogID4+ID4+VIrtRV4ZVGjzehShKYSuAp0NVXTxIUHyFA9cOPVxVABmN5O0uCdpKKOWLhFfX0rtsjmhMS 0sARKzG527vUyxmnRiLLAyNSZtMl1TOUQsGCA0QEQi kWDmYrqcYSYVSAwjXH1XyDLrEKP3xC8bKPxtNSCcHVHlI4sUPhRvkHkuXN35nDpcsmGpwUYsVZi+Pg0K LB6bd0CqSSe7mmOxKIkwJRWxDLnwCWMgPGCmALOcXFX0AAL4WLUBJyFkUEDbVYCdBNnxMZMhYCGarl2Z SJXxIVBxHzR9BrMcSOIaOHJsVLozRVPkBGD0ILUmBJ OvGRMdVE4PAoNzGFCiGAOgPGkaFIToCOFbye3IEHGtAWUjBlLwOFCrBQBlULWlVLjfWHUmDLNfJJQ0XB UfXMHaSE9UGmGbUWQaCMSiEKczFQXlMNEjru9KEVPiBPRsYsQjWbVnDGKpNKQcKXbvBZRjIZK0IiIuUI XmIOGzAE8LRtNiNRAkERs0TEWfSSXjIFBlvt3SQOMr LMObSUL4DkWkGDPjVQDhZGluURCfRXOxFKQ5ICZwZGJlTQ5NHgSxIWPrIVZsUfOjJINaSVRhov8MYXFv JYXyXzE6SXUhXYCdHWWjVUxwBGUaJIV9CHm5NDIcTOCmII5ACqSoVHGhEQD7DSVaUZTzSTArur1PFQBz PKGxLZlhLIWcXGAaGVPnSEypQFNoBOY8YVN8IOSlFY VaCW5FByUlOLBqSOmpQYNdPORaAUPnci8QHBYsJRCgJzG3YnJcBGKhRGIhLFmeAQUhXQT4TFd6SKQwAV KxKG0JDvGeFEXoQNm8LzXhATXkWNSdeh3VLKFnKKPgVEFrLJZrCXLcWHQwNXolPQYmOJH7GZK9GDLfZK RuEB6UOkEzWFIcJTs8NrQuTGRyMXHsfa6NMZEtAKPw JXt5GGThPEQoKNVyMKrjMFUjDPSoXLczYYDoARWwKK9GKuWwVGCrVuMhJonbQSTzQYGefd2JPNIgQXAo IFDrUVMwFIOeILVxCRqcCHLsEEFrILJ4CPCsHTFwJU9UAbQqBOJuPzC8NvOdQZQhSRRjny1QUFNeBLVk FYP6BCYcHVZxAEXgLRxkWLEkCDH6JbK5FJMiCBCjJM 0VPiAtCOXdOvR5SIskSQTzWLEgce5UWELwLEMlPQk1MuPzZNDwHWLlSZstLRZjLDC7Tza1GISfEINxGM 9UQeYxASMsRoW7NPPiEVPmSCPxij5WGHTeURLzRxM5BSOxHZNlBVLhBLrvXNUhPFQ7RROzKEGzCTFxZB 7CMuEgONUmIbo2GZnjGSCeDZRosr7REHOuQQZvDSS6 BFZwMMLdCKVkLLfzFNNgQFM3OxR0GODhHFNyID2RQkYyZPhiFCHKVvj0WXadM9b7JRM3Dx4SJ5Mpt6Ie IKSiMXXZHRrkGV1sehApWCMtFh9UX1yMEvxyPqN4JQXhUBijFUF8MIMxNiS8YVSsZRGaEhrbFgmdEP5h RGYnPbDyFHPvJKTvQsK9HXRcZJL3QWMxFjMeXRO1Nc DmBdJpEV9PRx6IZzS9IMD2fVHyDr3GWvo3PQaSTfEnSP4MPJe= ID Date Data Source [id number] 04/27/2021 12:30:00 PM EDT [facility] Name Value Range Interpretation Code Description Data Arabella rce(s) Supporting Document(s) Amphetamines, Urine Negative Negative Normal (applies to non-nume ny results) [facility] Barbituates, Urine Negative Negative Normal (applies to non-numer ic results) [facility] Benzodiazepines, Urine Negative Negative Normal (a pplies to non-numeric results) [facility] Cannabanoids, Urine Positive Negative Abnormal (applies to non-numeric results) [facility] Cocaine, Urine Negative Negative Normal (applies to non-numeric r esults) [facility] Opiates, Urine Positive Negative Abnormal (applies to non-numeric results) [facility] PCP, Urine Negative Negative Normal (applies to non-numeric resul ts) [facility] Methadone, Urine Negative Negative Normal (applies to non-numeric results) [facility] DrugMinimum Detection Threshold (Conc.)A [id number] ng/mLBarbiturates 200 ng/mLBenzodiazepines 200 ng/mLCannabinoids 50 ng/mLCocaine Metabolites 300 ng/mLOpiates 300 ng/mLPhencyclidine (PCP) 25 ng/mLMethadone 300 ng/mLOxycodone 100 ng/mLNOTE: Phentermine may interfere with the amphetamine analysis.NOTE: This urine drug analysis is a screening procedure. Presumptivepositive results are unconfirmed.[facility] recommend submitting positive specimens to areference laboratory for confirmation. Oxycodone, Urine Negative Negative Normal (applies to non-numeric results) [facility] The above 9 analytes were performed by [facility] [address], ,[place] [address] ID Date Data Source [id number] 04/27/2021 11:48:00 AM EDT [facility] Name Value Range Interpretation Code Description Data Arabella rce(s) Supporting Document(s) Glucose, Fingerstick 78 mg/dl 70-110 Normal (applies to non-num madiha results) [facility] The above 1 analytes were performed by [facility] [address], ,[place] [address] ID Date Data Source [id number] 04/27/2021 08:10:31 AM EDT [facility] Name Value Range Interpretation Code Description Data Arabella rce(s) Supporting Document(s) Care Plan [facility] WOWHMy3zShRRFlXa34/FRMpnYJHuy4LtLGnxAVf1JJxfHGAqI4NvUDI7kG2xQPK5AOxGXaYqEqOzWLZ6 lbm OgUswWWjDtVSPqCdoOAmAgVQstUdquqNGnUX1OfJG3VSCfN79cSAUeGZZbT5DrVWk2Ni7+JBmwMXU2ek DbbO7AWPCbEFav9vRYzx/Yf+KoTfAFcgX7uaDOce2ONbb2FQZBu6ovW/DVO0t4EitaXsxq42Pq5FRsJe eTs5TPIn6PMfQcQ1K+3UFLhoQQyP+Zw1Xs9L/g9Suo jWH4OYkxUET2xHLReX1fRfD227HSQxNPamo1NNzw0CNGYQNSJUiCY4XLczL9TLpACJkWNBfR1J8P3ZIO Cj9KJOi2GU6K4dmeXZyDxnhhlb9W40StrvMX1XFltQuqLpAqgRYnJUeXBVmfdJtLuCcFvDHgv5WaiD2y l7TUCmD0utfZej9ZmxNMiCVvb6R8fSvCV31ZMoFVXi c2Y8xSAVizq6whmMyL7BW3O/KOk5QKoOwLX5eJTVIoQwHLSx4bf5rGLUvSnCjSETSC43Oo8NsXuHv9Zx 9V6fL3GqrUwa7ZYGSkhlwtbDpRJ/yvGO1M5KoYpPrgENQrUnV0f3lX3huqwEZsLlEG/0dgz0km8EhK66 ql+PzWLDcuxisndbOurI/82hh2oNd0nEwGH2/dmlsr AH7LadjIJLDel1ZxyjaO6imJUxrEbgkcWNyyUl0Zm8M63GmeJE9dU8+DUxS1YWHFf8hSScT6uDGWOGWP M6sqABY3rQ1yqPzOFB9W3YzcKOxqXKGK7Rlqv9qkE0EllUxpCSvQsmZshc3oC/Madonna/B75y60gQee1ba3 [file] XFZmWcOhq0DDguWORYBq9Z ID Date Data Source [id number] 04/27/2021 06:03:19 AM EDT [facility] Name Value Range Interpretation Code Description Data Arabella rce(s) Supporting Document(s) Nursing Note [facility] UYZJHh0mVtMMZsYu76/UFAnpFBOfh4YfHRyqQDw7YIwoRHFzX4YoHEL6jI2tMHO8WCiYEyOnBhPtXDX7 lbm [file] i3EpOcGZ9LQq0TGsV3VOP5lVWbMg1NHwYxTQNPSuPzAH8VDOt= ID Date Data Source [id number] 04/27/2021 05:24:00 AM EDT [facility] Name Value Range Interpretation Code Description Data Arabella rce(s) Supporting Document(s) Glucose, Fingerstick 88 mg/dl 70-110 Normal (applies to non-num madiha results) [facility] The above 1 analytes were performed by [facility] [address], ,[place] [address] ID Date Data Source [id number] 04/27/2021 05:58:00 AM EDT [facility] Name Value Range Interpretation Code Description Data Arabella rce(s) Supporting Document(s) Blood Urea Nitrogen 9 mg/dl 7-18 Normal (applies to non-nume ny results) [facility] Creatinine 0.72 mg/dl 0.51-0.95 Normal (applies to non-numeric resul ts) [facility] N-Acetylcysteine (NAC) and Metamizole em ve the potential to falselydepress Creatinine results. Baseline values before medication adminstration are recommended. Patients undergoing treatment with phenindione will have falselydepressed results. Patients on phenindione therapy should be tested with an alternativeCREA method.Toxic levels of acetaminophen may lead to falsely depressed results forpatient samples. Glomerular Filtration Rate >90.00 mL/min/1.73m2 [facility] GFR Reference Ranges:Normal Function or Mild Renal [...] of Health and the National KidneyFoundation. The [place] method used in calculating this result is traceable to IDVT standards. Glucose 80 mg/dl 70-110 Normal (applies to non-numeric resul ts) [facility] Sulfasalazine has the potential to false ly depress Glucose results. Sulfapyridine has the potential to falsely elevate Glucose results. Baseline values before medication administration are recommended. Calcium 8.1 mg/dl 8.5-10.1 Below low normal [facility] Sodium 137 mEq/L 136-145 Normal (applies to non-numeric resul ts) [facility] Potassium 3.8 mEq/L 3.5-5.1 Normal (applies to non-numeric resul ts) [facility] Chloride 109.0 mEq/L 98.0-107.0 Above high normal [facility] Anion Gap 11.1 [facility] Carbon Dioxide 20.7 mMol/L 21.0-32.0 Below low normal [facility] The above 10 analytes were performed by [facility] [address], ,[place] [address] ID Date Data Source [id number] 04/27/2021 05:35:00 AM EDT [facility] Name Value Range Interpretation Code Description Data Arabella rce(s) Supporting Document(s) WBC 8.06 x1000/ul 4.80-10.00 Normal (applies to non-numeric re sults) [facility] RBC 3.77 x1Mil/ul 4.20-5.40 Below low normal [facility] Hemoglobin 9.8 g/dl 12.0-16.0 Below low normal [facility] Hematocrit 31.6 % 37.0-47.0 Below low normal [facility] MCV 83.8 fL 81.0-99.0 Normal (applies to non-numeric resul ts) [facility] MCH 26.0 pg 27.0-31.0 Below low normal [facility] MCHC 31.0 g/dl 32.2-37.0 Below low normal [facility] RDW 14.4 % 11.5-14.5 Normal (applies to non-numeric resul ts) [facility] Platelet Count 233 x1000/ul 130-400 Normal (applies to non-numeric results) [facility] MPV 10.0 fL 9.4-12.4 Normal (applies to non-numeric resul ts) [facility] Neutrophils 68.6 % 40.0-74.0 Normal (applies to non-numeric resu lts) [facility] Lymphocytes 21.7 % 19.0-48.0 Normal (applies to non-numeric resu lts) [facility] Monocytes 6.8 % 3.4-9.0 Normal (applies to non-numeric resul ts) [facility] Eosinophils 1.9 % 0.0-7.0 Normal (applies to non-numeric resu lts) [facility] Basophils 0.6 % 0.0-2.0 Normal (applies to non-numeric resul ts) [facility] Immature Granulocytes 0.4 % 0.0-0.5 Normal (applies to non-nu meric results) [facility] Nucleated RBCs 0.00 % 0.00-0.20 Normal (applies to non-numeric r esults) [facility] Abs. Neutrophils 5.53 x1000/ul 1.92-8.31 Normal (applies to non-numeric results) [facility] Abs. Lymphocyte 1.75 x1000/ul 1.20-3.70 Normal (applies to non-n umeric results) [facility] Abs. Monocytes 0.55 x1000/ul 0.14-0.97 Normal (applies to non-nu meric results) [facility] Abs. Eosinophils 0.15 x1000/ul 0.00-0.76 Normal (applie s to non-numeric results) [facility] Abs. Basophils 0.05 x1000/ul 0.00-0.22 Normal (applies to non-n umeric results) [facility] Abs. Immature Gran. 0.03 x1000/ul 0.00-0.02 Above high normal [facility] Abs. Nucleated RBCs 0.00 x1000/ul 0.00-0.02 Normal (appl ies to non-numeric results) [facility] The above 24 analytes were performed by [facility] [id number], ,[place] [address] ID Date Data Source [id number] 04/27/2021 03:19:48 AM EDT [facility] Name Value Range Interpretation Code Description Data Arabella rce(s) Supporting Document(s) Care Plan [facility] TJUOPx8oWfBUReUj67/AQVonMYEwu6MrIFvyVTd1EPthYOMcN0SlWZB1tC0dQKS2AAgDFgYuLxRmPOD4 lbm [file] ICAgICAgICAgICAgICAgICAgICAgICAgICAgICAgICAgICAgICAgICAgICAgICAgICAgICAgICAgICAg ICAgICAgICAgICAgICAgICAgICAgICAgICANCiAgIC AgICAgICAgICAgICAgICAgICAgICAgICAgICAgICAgICAgICAgICAgICAgICAgICAgICAgICAgICAgIC AgICAgICAgICAgICAgICAgICAgICAgICAgICAgICAgICAgICANCiAgICAgICAgICAgICAgICAgICAgIC AgICAgICAgICAgICAgICAgICAgICAgICAgICAgICAg ICAgICAgICAgICAgICAgICAgICAgICAgICAgICAgICAgICAgICAgICAgICAgICANCiAgICAgICAgICAg ICAgICAgICAgICAgICAgICAgICAgICAgICAgICAgICAgICAgICAgICAgICAgICAgICAgICAgICAgICAg ICAgICAgICAgICAgICAgICAgICAgICAgICAgICANCi AgICAgICAgICAgICAgICAgICAgICAgICAgICAgICAgICAgICAgICAgICAgICAgICAgICAgICAgICAgIC AgICAgICAgICAgICAgICAgICAgICAgICAgICAgICAgICAgICAgICANCiAgICAgICAgICAgICAgICAgIC AgICAgICAgICAgICAgICAgICAgICAgICAgICAgICAg ICAgICAgICAgICAgICAgICAgICAgICAgICAgICAgICAgICAgICAgICAgICAgICAgICANCiAgICAgICAg ICAgICAgICAgICAgICAgICAgICAgICAgICAgICAgICAgICAgICAgICAgICAgICAgICAgICAgICAgICAg ICAgICAgICAgICAgICAgICAgICAgICAgICAgICAgIC ANCiAgICAgICAgICAgICAgICAgICAgICAgICAgICAgICAgICAgICAgICAgICAgICAgICAgICAgICAgIC AgICAgICAgICAgICAgICAgICAgICAgICAgICAgICAgICAgICAgICAgICANCiAgICAgICAgICAgICAgIC AgICAgICAgICAgICAgICAgICAgICAgICAgICAgICAg ICAgICAgICAgICAgICAgICAgICAgICAgICAgICAgICAgICAgICAgICAgICAgICAgICAgICANCiAgICAg ICAgICAgICAgICAgICAgICAgICAgICAgICAgICAgICAgICAgICAgICAgICAgICAgICAgICAgICAgICAg ICAgICAgICAgICAgICAgICAgICAgICAgICAgICAgIC AgICANCjw/kNQnW1fhrQKbdiK1F7yoYc2ZKv4HMW4di5UuBATmUIuycsXtUvmWLsRcGYDlImnMDpd6HD idHS2FzVBvW8MwY1MsQYmqQP5UAGViYDMdjJEnRLIfOMUgYlM8AVIsITmiMD8RkKQmINqpQRErRXAuZr UeJXOeVO4CIGJtR825cvKpLf1KGo7LInPwYN7pay3Z KiNpCIXxNffXRky8NLfjSA4BeXRtsDGhOmPiICCNNkApC6svi0QxIwNrRPORNEvrXC4Je2EhbZWcPOn+ Gk4XBB9gl8AbGXkxEeYkJP4gsi0EJZmEYuRsB4XjuSxcOYYlcnFqYGolypQbkHISwInnbKQrV0IpoL26 vHYdYGFTEhQipQN4EzJ0DqGyRfYwCTB0XMahFD4wRE omZW0EEHT9GLpyBPEpMVPiJ4qLWrWtHAcxRNFyeSwxKU5UDbPbT6VlstHoyFFnSOFjIQALHo6+DQplbm XrNgcKSdS1TKYoo2TdQPy5QR2MMCHlZFfwJS2RWSIdsW6gALfrXH2WLxYdAnCmCRMPGcKjH36liKNcYE l6J3GtVtFsUSKgPgybFFVbRZnqZxSxNLSgEgGbPUkh ID4+ID4+WDruBC3FMKmibyNqLABlLz0KBIOwQBIkRY0lBPClJVMwH5Z9cDjzDFDZJnQdA1bapfkoBU1w GLDlE637oOhnpzKkHFR8EZTrPf3JZJMbFWS5ZFQdiIWsTwUqNZYLUOtgKP3TlIHkYYP7zK4dBAqxOOJh MUFlE6kIBlTndBjzYV95wEgwlfBjlFTpEZf+Pg0KZW 2vs1GzGRb7rrBeLWfdOFB3TNxfHRGlAXQfWXGaCUK9OFM2UIUEUoXqSRQaIUMxJQotUQJoEAKffp1PVC NnCLK5YAU9NYZoOHYrGVAtHCwoRFIbRFY0QLUiMCHyZENqZA0PBpAmZVTpCXQnMAedHQDrWNKdll2GID AwMDAwMzMwOSAwMDAwMCBuDQowMDAwMDAzNTEzIDAw GILeMX0PYkPnVLJhCGHmLTRzSHTcJJWnlc6CNPYkMCMvNQKqUnFwJMMfBXEkGFjkGXHjZNU9LoL0UOTx YUPxFP4JKnAtTZAyOFI7TrTrLTSjRYOjlv5BVIDgCJUbAmA6ATMmPKXyBFFvJYrnUHMzBXR5AcUyGFVh OGOgCQ6NJvWvJQYnSAi5HJzqERGnTCUsbu4FJQZfAZ ZnNyc3KWKqGNObULMjXSkkBNYnCCBzRaXsAOTnFKQfAT5PVdVhZMRyDkT7RXLzDAYjHTUyeo9LTIYpBH LaSKc7OUGjEXHdIFFtRGmaXADsIJBkKUN1TGEsOMHvEA6VJdUtJPQaMgWmQCGgDVViTBRmzx4SGOOpNC OrBcO0PwRcBIJvNNOcZFtwYFGxPNKcFzcaXFPmGMLd LS4RDnIgEYNnGzW4FxvjTKOmEYYkds5KJWToMMDoNwByFMHyLPDxRSZvOJagYOIaRUSgQzK5RTOzCAXm MP6HUxAhDYGsFoD3NkbkTUHmOKDdpq8WKRFsFGL7KZT2TzMiCTKcVJEtDSvwRLNzHJIqIPI0QYLuOEDs TZ9XZcCjVWTxWKAoZnOkDIRxAKCuuj1DNNSeBNL2Gm K6BBGgKAGmDIRkWMbpBEObNASuNTX1JWByKLXcDV2LFiVkOAGpXCX9HUrrDJNgUFOfgv0RLXNhLMA5Nn v4UARiZLNbGVYhLDxiAGUeOPS4BEH7PXFkGYYzGX5TEiJlOCCaFKX5ZYCyNURuYGQmns1PRJQhJDE2Ft U8CyPfBVIlXADtGFdmGUUsKYG6VJP1JXPwMGOeAP2O DaSpDDOyXTMsPiQfEZMbGCXalq3NeTBroTfadm9KSKzVUe3IxGsnWEC2IFlgZc5isPElEoBnKZWABq2E nrDkOWRsFVUYOCxzSZPuFMKnPDKlDqpuRTF4KopdHQA2KEPgQRV0TjJrBLscQoBtPrZ8HMAcVhCpNGB1 LUUnKJP8PnagCCP3UtcwZsAcR0WmX9T+JT8kAMo+Zc1Xp9TmlhJ4lvGxZNm9NqNmIm7TNRLRH9TFDj== ID Date Data Source [id number] 04/26/2021 11:50:00 PM EDT [facility] Name Value Range Interpretation Code Description Data Arabella rce(s) Supporting Document(s) Glucose, Fingerstick 99 mg/dl 70-110 Normal (applies to non-num madiha results) [facility] The above 1 analytes [facility] [address], ,[place] [address] ID Date Data Source [id number] 04/26/2021 06:50:00 PM EDT [facility] Name Value Range Interpretation Code Description Data Arabella rce(s) Supporting Document(s) Glucose, Fingerstick 114 mg/dl 70-110 Above high normal [facility] The above 1 analytes were performed by [facility] [address], ,[place] [address] ID Date Data Source [id number] 04/26/2021 06:45:07 PM EDT [facility] Name Value Range Interpretation Code Description Data Arabella rce(s) Supporting Document(s) Progress Notes [facility] GNGVTr9pKfYQMgHj02/QEPbuWOVuu3KmMVdhNXz7GSuoPSNlD5NkEFT1zO6vOSN9VSaNFqLeHvAqBMX9 lbm [file] DIVING SUPERVISOR/wOFUUe4WUwe6dA8Ax1641Q2iu8mVJ//uhzSbfg5I32FG91+vP7/3b6j/qqgaR1nqycGqlWQu1R3+ [file] KN2dHMf+Nw8Pw6UvmaE2eiIdJUhcNSF9Ym8JCTBSW3YGKi== ID Date Data Source [id number] 04/26/2021 01:21:29 PM EDT [facility] Name Value Range Interpretation Code Description Data Arabella rce(s) Supporting Document(s) Care Plan [facility] TVKSFa6wKqNKQqOv42/ATBveAHTvk2EpOFhaBIj7QBaiHZLcD7EwLXE1dU2gYAF0IAmEFsEyRsYoSUY0 lbm [file] AgICAgICAgICAgICAgICAgICAgICAgICAgICAgICAgICAgICAgICAgICAgICAgICANCiAgICAgICAgIC AgICAgICAgICAgICAgICAgICAgICAgICAgICAgICAg ICAgICAgICAgICAgICAgICAgICAgICAgICAgICAgICAgICAgICAgICAgICAgICAgICAgICAgICAgICAN CiAgICAgICAgICAgICAgICAgICAgICAgICAgICAgICAgICAgICAgICAgICAgICAgICAgICAgICAgICAg ICAgICAgICAgICAgICAgICAgICAgICAgICAgICAgIC AgICAgICAgICANCiAgICAgICAgICAgICAgICAgICAgICAgICAgICAgICAgICAgICAgICAgICAgICAgIC AgICAgICAgICAgICAgICAgICAgICAgICAgICAgICAgICAgICAgICAgICAgICAgICAgICANCiAgICAgIC AgICAgICAgICAgICAgICAgICAgICAgICAgICAgICAg ICAgICAgICAgICAgICAgICAgICAgICAgICAgICAgICAgICAgICAgICAgICAgICAgICAgICAgICAgICAg ICANCiAgICAgICAgICAgICAgICAgICAgICAgICAgICAgICAgICAgICAgICAgICAgICAgICAgICAgICAg ICAgICAgICAgICAgICAgICAgICAgICAgICAgICAgIC AgICAgICAgICAgICANCiAgICAgICAgICAgICAgICAgICAgICAgICAgICAgICAgICAgICAgICAgICAgIC AgICAgICAgICAgICAgICAgICAgICAgICAgICAgICAgICAgICAgICAgICAgICAgICAgICAgICANCiAgIC AgICAgICAgICAgICAgICAgICAgICAgICAgICAgICAg ICAgICAgICAgICAgICAgICAgICAgICAgICAgICAgICAgICAgICAgICAgICAgICAgICAgICAgICAgICAg ICAgICANCiAgICAgICAgICAgICAgICAgICAgICAgICAgICAgICAgICAgICAgICAgICAgICAgICAgICAg ICAgICAgICAgICAgICAgICAgICAgICAgICAgICAgIC AgICAgICAgICAgICAgICANCiAgICAgICAgICAgICAgICAgICAgICAgICAgICAgICAgICAgICAgICAgIC AgICAgICAgICAgICAgICAgICAgICAgICAgICAgICAgICAgICAgICAgICAgICAgICAgICAgICAgICANCj w/dAHmK3jrdZQycwR6O2bcFg3CIz4FOS6xu8YdVUCc OFesmcPmIwlYJrMhNMQaBqzZLke6CLypEC2EhYTkE3ZqR5RqKZntQA4PSMJmRBVwwDOcNAWxYWZqIiT4 XRTuBCexHG0OtSVsVGozMHXiPKOtJtGzYXUpZAXrLKSqYFLoLBJKIWLyHHWeRgIbTPXrUDCmOXtkQKFJ SLJ4ERJhIaYiAVGaRGJbGiBaPBYDPEP1FJYkOcQkGq EdOAYuTqrjVHCAZVTlNYOyNdNrYiKgUGSjNH1WNLTxU935eiKsXTZTEl0+DQplbmRvYmoNCjUzIDAgb2 VrYXj6DW4MXDAvNcroa5GvMBBrWPWRNNjfLQ1VPGY7RRY0RBJcMw3PZYHxZ449apFmLQ0QTt4ZJwEwLV 8wof6ZXDAzHLBxLdhTHly3BPnoVD2KuCZmLFvBAONy DKEvIE3qNztpHM3aBPerOL0jH82dGLktZx5FORC2DWhdJCzmEoPrRXBjOFjhKPNALZvOAhPoM3Chi4Hq JjP3DWMfTcBjDCwoBVMlZfQ2BN00fOxvEF9RINFdKMVxLI84SECmLMAdBz8HIo6GHdRlXT3tui6DPUSt FXKzCpiDVgv3YSwiAC3ZxDFmL1LeoRAuj1tPUaKfF9 SRBTKjMBNkLc3WYAPaZcDhZJDoWDvbUU1qWOPeHWPLjMamhfC9CK4GGD8twjMvTF2AAyScGo5kQp2ECx UlZ5WfW3SeFIRbIPOKBUyxVD1HCEarCV0oVZ6Iy5HOrVWtoZ6wgx0BOOBqYJOzYbqykt7OUnbqJ2Y8oI wlXSShZFLyTJVNLLjpMP0YCOGzINW4XGC1MkCyHDFP JjVrZ57qHE8HL5Fgu88zTjG8KFHqKvKiOWalJI59tVmrgfAmfMWepEbpOL3GTg1+DQplbmRvYmoNCnhy ZYSCXoZdYPEUHmGqROJvYTPtSGPbCpJ6NtWyCv7XCUCpONDnTWTzUdAbQIKzMQHoHUnvFFFtMMI5GyC3 YAGxLJKoEC0APeOsTGUsACQ5FjLoITUfRTGirq7DXT PwSHCbSDM0QtBfWMDjZMLyKZnqRUXgZTOjKsjcWBFnCHCsSM5UIiEqDILyVLM2NILbKYWhBHHiob6APC OkUERhXtHsUcXsEFNlTTWzPZuxRLPoHEGtMOOpJTWyZZYeAV2PJfLrZDLoWPW1JNLzXKNxHLJtms3AUO QsMQCrOAn9SiLnHJTdNNQtCVpqHADkMUP4Omx8HQEf LXZpBO0WWmRoMTAvDWqbKBAxILJlKJLvmm7JWPWsTHHnDZQwMxFwNWGoHNOjQPorTWXnPEO9XPJ4WPKp MHBaEH0JGtWsFKXaZVZ0KPXdYJIbNSXqab9NNPHyATKjITX2UiVjVMHrSOThTQwoQBBqDBJmQEJ1XGSt ONNbWB0OSgRnGBLpWNU8ZZVsNIBhCFGzap3JJAPaCR DwFQBeCUQnWWPcIHAnKEknLQMhNVO8PyImDVJgJRIaDW3YXpUuDJNsUKN6LHNtSHGjUVDcsc7ANRJcZY CiCMv6MhMoHLSfOUPfEKzuVMBaBFI2DtJqTNFwSLPpVM2AEnEkILOpUNu6HSpnEYXsBOOvgk9SNPHpIZ LcQYMxJYLzIVKlZNVmMZfeABNdHDW4PKBgUNYmOCJk UX0IZlSiFXZaQmKpSFjtKFYiPVLmmv4ODBAgNTOcGEX5XaVqZUDhZEHnGBbpRXNlQNAtKCH7DQSuMXGh NL6OUzMmGEDzFvGePdSeSYJcJSLdtd6OVJPwDGTmKJLjRXXyZWVaJDAgHSlqSYCxNPD8CfO3FBWyOLJc RJ5YLuOeVHGcAmK5SePeGTXfXQJfxu6ZBTXoSXWqJq KqAcTgKWNsGTHvLXcrYAZnPRX1ZDs2OVYkLFQkHT7WVmDoAMGwTwx7PUsvVIJoVFVfwu8TAQEcZQZzYt v9FuUrSLHvURWuCEigTGHxNVI9PNE1YJKjJRVcSX7YEyEfDHYxZxtxUtHcJDEfLPPqsc3RGRGzBHEqSE MjHkRjCXYvBNAjNVjiTKOpCIUfBfT1POHjJFCgBZ6K VcPvECBcSYZ7KKZfEHKsHCAydf6RPRJvACI3IlI6VATpKDPvZIOoAOvzYNPkPTHrEYPuILPjSIPtEC6O YiVcNJUmZRB0OsSzGIVuEQDpsz0QQVLdODR8QpVhYMWjLQHzNDNqPYffKFDkLNLeEsJ0UGZdEPJdBI1H TlEpIPSwING1SAHhYHLwGIYmyz4GJGMjJSL7MVe0RQ ArCKLtNKPsKBslEHCbMVC7LLK4BWGsNZNhAY0QHwEfCZMiQKNnHEGvHNBeTIVurm2LIHVlKBU2SKExQI LiNJGfVWJyRNlbBNHdJDX4BYncPWKfZZEaRO2OJdOyCNEpDOkvYBSfWYSvJAYxwg6CFFAqCSU2LtV3SV YdYDBtLSLjODc4fzAuuLOaZRb3AT6SL4UjpmCsLGMC Jh9Nd850BWI1GATzZt2FX2sxOk9tJTEwQWSESs5WSGs5EOH0VwGrPSS0RSBxYLJoFPc3QNLrNlxoKiMx NTkyZjg+UKzqWEG4FbPfZXB0YUM9YDN3AJBrJlF8P7HkEhL7ERIwBD9oOBJRCb0+DQpzdGFydHhyZWYN RgJ7InN2DKjkDNZKUc1W ID Date Data Source [id number] 04/26/2021 01:20:39 PM EDT [facility] Name Value Range Interpretation Code Description Data Arabella rce(s) Supporting Document(s) Care Plan [facility] RXNMWa0cBmOFNbXf11/QIJorLEUme1HeQShsOVw3LTguQBQrO1JcYYN5gH4pBBJ9ZZxIHqBrXjTqIAN5 lbm [file] VGV8JZexAVLHBf7H ID Date Data Source [id number] 04/26/2021 12:43:10 PM EDT [facility] Name Value Range Interpretation Code Description Data Arabella rce(s) Supporting Document(s) Nursing Note [facility] ZZIEUm9oOuLMVjNy23/KRRzoGJZft3HaKRmlDNs2VDoaFHDvX5QpZGG1kG1gBKG0NYtUYuEfIaPcWAJ9 lbm [file] F7BWCaBRB+EY7fVHp+Om2Da9HnewN7wdDyUReyZYXbRS2NITQDM1WCQw== ID Date Data Source [id number] 04/26/2021 12:06:00 PM EDT [facility] Name Value Range Interpretation Code Description Data Arabella rce(s) Supporting Document(s) Glucose, Fingerstick 107 mg/dl 70-110 Normal (applies to non-num madiha results) [facility] The above 1 analytes were performed by [facility] [address] [facility], ,[place] [address] ID Date Data Source [id number] 04/26/2021 04:59:00 AM EDT [facility] Name Value Range Interpretation Code Description Data Arabella rce(s) Supporting Document(s) Glucose, Fingerstick 84 mg/dl 70-110 Normal (applies to non-num madiha results) [facility] The above 1 analytes were performed by [facility] [address], ,[place] [address] ID Date Data Source [id number] 04/26/2021 05:20:00 AM EDT [facility] Name Value Range Interpretation Code Description Data Arabella rce(s) Supporting Document(s) AST 15 IU/L 15-37 Normal (applies to non-numeric resul ts) [facility] Sulfasalazine and sulfapyridine have the potential to falsely depressAspartate Aminotransferase results. Baseline values before medication administration are recommended. ALT 19 IU/L 13-56 Normal (applies to non-numeric resul ts) [facility] Sulfasalazine and sulfapyridine have the potential to falsely depressAlanine Aminotransferase results. Baseline values before medication administration are recommended. Alkaline Phosphatase 53 mIU/ml 50-136 Normal (applies to non-num madiha results) [facility] Total Bilirubin 0.70 mg/dl 0.20-1.00 Normal (applies to non-numeric results) [facility] Blood Urea Nitrogen 11 mg/dl 7-18 Normal (applies to non-nume ny results) [facility] Creatinine 0.76 mg/dl 0.51-0.95 Normal (applies to non-numeric resul ts) [facility] N-Acetylcysteine (NAC) and Metamizole em ve the potential to falselydepress Creatinine results. Baseline values before medication adminstration are recommended. Patients undergoing treatment with phenindione will have falselydepressed results. Patients on phenindione therapy should be tested with an alternativeCREA method.Toxic levels of acetaminophen may lead to falsely depressed results forpatient samples. Glomerular Filtration Rate 85.00 mL/min/1.73m2 [facility] GFR Reference Ranges:Normal Function or Mild Renal [...] of Health and the [employer]. The [place] method used in calculating this result is traceable to IDMS standards. Glucose 81 mg/dl 70-110 Normal (applies to non-numeric resul ts) [facility] Sulfasalazine has the potential to false ly depress Glucose results. Sulfapyridine has the potential to falsely elevate Glucose results. Baseline values before medication administration are recommended. Calcium 7.8 mg/dl 8.5-10.1 Below low normal [facility] Total Protein 6.4 g/dl 6.4-8.2 Normal (applies to non-numeric re sults) [facility] Albumin 2.9 g/dl 3.4-5.0 Below low normal [facility] Sodium 139 mEq/L 136-145 Normal (applies to non-numeric resul ts) [facility] Potassium 4.0 mEq/L 3.5-5.1 Normal (applies to non-numeric resul ts) [facility] Chloride 113.0 mEq/L 98.0-107.0 Above high normal [facility] [place] 9.3 [facility] Carbon Dioxide 20.7 mMol/L 21.0-32.0 Below low normal [facility] The above 16 analytes were performed by [facility] [id number] [facility], ,[place] [id number] ID Date Data Source [id number] 04/26/2021 05:20:00 AM EDT [facility] Name Value Range Interpretation Code Description Data Arabella rce(s) Supporting Document(s) Magnesium 2.1 mg/dl 1.6-2.6 Normal (applies to non-numeric resul ts) [facility] The above 1 analytes were performed by [facility] [id number] [facility], ,[place] [address] ID Date Data Source [id number] 04/26/2021 04:54:00 AM EDT [facility] Name Value Range Interpretation Code Description Data Arabella rce(s) Supporting Document(s) WBC 7.39 x1000/ul 4.80-10.00 Normal (applies to non-numeric re sults) [facility] RBC 3.51 x1Mil/ul 4.20-5.40 Below low normal [facility] Hemoglobin 9.3 g/dl 12.0-16.0 Below low normal [facility] Hematocrit 30.1 % 37.0-47.0 Below low normal [facility] MCV 85.8 fL 81.0-99.0 Normal (applies to non-numeric resul ts) [facility] MCH 26.5 pg 27.0-31.0 Below low normal [facility] MCHC 30.9 g/dl 32.2-37.0 Below low normal [facility] RDW 15.4 % 11.5-14.5 Above high normal [facility] Platelet Count 256 x1000/ul 130-400 Normal (applies to non-numeric results) [facility] MPV 10.5 fL 9.4-12.4 Normal (applies to non-numeric resul ts) [facility] Neutrophils 48.7 % 40.0-74.0 Normal (applies to non-numeric resu lts) [facility] Lymphocytes 41.1 % 19.0-48.0 Normal (applies to non-numeric resu lts) [facility] Monocytes 7.3 % 3.4-9.0 Normal (applies to non-numeric resul ts) [facility] Eosinophils 1.6 % 0.0-7.0 Normal (applies to non-numeric resu lts) [facility] Basophils 0.9 % 0.0-2.0 Normal (applies to non-numeric resul ts) [facility] Immature Granulocytes 0.4 % 0.0-0.5 Normal (applies to non-nu meric results) [facility] Nucleated RBCs 0.00 % 0.00-0.20 Normal (applies to non-numeric r esults) [facility] Abs. Neutrophils 3.59 x1000/ul 1.92-8.31 Normal (applies to non-numeric results) [facility] Abs. Lymphocyte 3.04 x1000/ul 1.20-3.70 Normal (applies to non-n umeric results) [facility] Abs. Monocytes 0.54 x1000/ul 0.14-0.97 Normal (applies to non-nu meric results) [facility] Abs. Eosinophils 0.12 x1000/ul 0.00-0.76 Normal (applie s to non-numeric results) [facility] Abs. Basophils 0.07 x1000/ul 0.00-0.22 Normal (applies to non-n umeric results) [facility] Abs. Immature Gran. 0.03 x1000/ul 0.00-0.02 Above high normal [facility] Abs. Nucleated RBCs 0.00 x1000/ul 0.00-0.02 Normal (appl ies to non-numeric results) [facility] The above 24 analytes were performed by [facility] [id number] Christo Hallman,[facility] [id number],[place] [address] ID Date Data Source [id number] 04/26/2021 02:31:41 AM EDT [facility] Name Value Range Interpretation Code Description Data Arabella rce(s) Supporting Document(s) Care Plan [facility] GUOSXj2rUzJPJcHm49/IHZnyYUPil8KqPMwkMOz5JNwoRNWyG9CzEVU5dA3mPHG2KWjOZeRcYvUdFYZ1 lbm [file] [id number]== ID Date Data Source [id number] 04/25/2021 11:21:00 PM EDT [facility] Name Value Range Interpretation Code Description Data Arabella rce(s) Supporting Document(s) Glucose, Fingerstick 84 mg/dl 70-110 Normal (applies to non-num madiha results) [facility] The above 1 analytes were performed by [facility] [id number], ,[place] [address] ID Date Data Source [id number] 04/25/2021 11:09:15 PM EDT [facility] Name Value Range Interpretation Code Description Data Arabella rce(s) Supporting Document(s) Nursing Note [facility] GOEXFh9yYuIFHgOu65/QEEbfFJMvq8CpMQaoIYw5BEzvGSFoZ0VsREO7yZ0fHTR7TVzTRhBoJqZaHNJ8 lbm ZyFjzFZqApMYRbKgrJSoQoMAlzXfjstMIeRL2EoIN0CCOgF22lFSIxEPNmQ6QsTOQeYfo+Qr6JBRWgeV GmSW7UDkfD2LthgdrTXZ2y0T+IzlGx9S0sdZiyAHTtLSWKGFQyl85gzRYU6In3G0MhpQ1eeDOFoUzxTC 7xLCXfMNJTRF3sclNIRmT/+1tmJaXGNL3sUxxa2SCA 484FqLhvwpDkLcNLDKTnCC3fvxffwcNcUzBaXP/BPKir1uLrJMbRxJZmtXiOnQ6vVPk4TfeBdzPjAVXW r2K6BbQISofcHosSyod63vVAOHlmKt/tQSBipbVefUDKnYeATkWN8ZG37cVup3YWg1HABPKellQgxzFX RGU6SxmyT9iogQjR7cV5ly17Yym0BVL9m2XREDgFZW HE7gG8r2YT8y0hqJwV1iFQ+kboJpEipdPAKh4pDpfTRJyXZ2niArACfIaCqHLsUsrFFvwOwjCOhZyxJU NgdMjuO8+Maddy/+tiFfTh/Wm0DtTNUg4gbytcWtIOTOlcjw7J1wEhVmanQWW+wk7Vb2sAQdPS1Kpc5WHm [file] W8FJV7zCLnNe8VZnEqXCZHPsMgUZ1MWEa= ID Date Data Source [id number] 04/25/2021 07:08:57 PM EDT [facility] Name Value Range Interpretation Code Description Data Arabella rce(s) Supporting Document(s) H&P [facility] HRHYSx9zCvEKJuIu39/RDPvzPVIhk9AhVMgiAJg5ONfuOCQmO0ZzKCW1jB3rFEQ6JTyCFjTvFrUoBXA1 lbm [file] MjEgMCBSDQogICAgICAvRjIgMjQgMCBSDQogICAgIC KrJcGhJevrHOHMKHeuVMTkLKKfPgUxPsTyOULRNAfqMZWdTADsAoUyGiGrPUFOXu6ZXjPsYWPpWZ6hwr PaxAE7FJT+Qx1CQJAsVQ5XpSMZJ4XfdITtNJliQ7ZZSA5ZJDA9KO4TmCJbYU2QqQUWU1NuhLYrUj5sSO Jda1LzRr1uX4ZPAUNHUUHmGMtjQWmsGOOoDKj3D6D2 JUXiH8NIY004vGYdlKl1Iq0yX1KXZUpTYfRtGCmzEYzeGVLtPPz4Z5X8ZINqI9CQK7YxFpDhnxYoV2H+ VdEtZNCLAW8FZLMFKIj4W9T7uNKaL8L5oTvSgVC7HG1DVS3EkVPxpHDll38+EyZCGyEvCNFjJ5KXRLHH LrXaRTsgXWflBBTkPMb1C8W3SCQdY1CSS4zqB3r4KT 4+TlHLApLqVHNjOe3ZFwFxIu5YIpUrNI4znk1SGvLpQJWpNzsZIar8H0pjggl5zQFeMgS0B6S8YmM8rR IzLI4EF9E7bVHfXWI5EBGthAR+Gv1Tb5TnGLSePJb5Z6xgBXWrCUAtUkJhyZ58V++5rizfcJN4S3s0JZ FDdCYksLeNodLiA3qMYKI6k3J6JLc/Dw1SHZH6kEx1 qHUfERMdBMo9iK5psLp8QxMsZX32JXFsNCdzfL9sUeh2F3Bob6UaJv2bEm8ywLMjNd9XPoQaFEF4lxUf UnYUIlJ8oMiyvhmyDZU2C2k7vNT5Jd47l0rwfzTdl6QzVwT7RLpkRWAvKpNmanOhBLK8lbUpuD7lahBm Ih6KIMEvCKaknvIjFzVEIj6UViVaZU87JzzomC0wgP E+DQogICAgICAgICAgICAgICAgICAgICAgICAgICAgICAgICAgICAgICAgICAgICAgICAgICAgICAgIC AgICAgICAgICAgICAgICAgICAgICAgICAgICAgICAgICAgICAgICAgICAgDQogICAgICAgICAgICAgIC AgICAgICAgICAgICAgICAgICAgICAgICAgICAgICAg ICAgICAgICAgICAgICAgICAgICAgICAgICAgICAgICAgICAgICAgICAgICAgICAgICAgICAgDQogICAg ICAgICAgICAgICAgICAgICAgICAgICAgICAgICAgICAgICAgICAgICAgICAgICAgICAgICAgICAgICAg ICAgICAgICAgICAgICAgICAgICAgICAgICAgICAgIC AgICAgDQogICAgICAgICAgICAgICAgICAgICAgICAgICAgICAgICAgICAgICAgICAgICAgICAgICAgIC AgICAgICAgICAgICAgICAgICAgICAgICAgICAgICAgICAgICAgICAgICAgICAgDQogICAgICAgICAgIC AgICAgICAgICAgICAgICAgICAgICAgICAgICAgICAg ICAgICAgICAgICAgICAgICAgICAgICAgICAgICAgICAgICAgICAgICAgICAgICAgICAgICAgICAgDQog ICAgICAgICAgICAgICAgICAgICAgICAgICAgICAgICAgICAgICAgICAgICAgICAgICAgICAgICAgICAg ICAgICAgICAgICAgICAgICAgICAgICAgICAgICAgIC AgICAgICAgDQogICAgICAgICAgICAgICAgICAgICAgICAgICAgICAgICAgICAgICAgICAgICAgICAgIC AgICAgICAgICAgICAgICAgICAgICAgICAgICAgICAgICAgICAgICAgICAgICAgICAgDQogICAgICAgIC AgICAgICAgICAgICAgICAgICAgICAgICAgICAgICAg ICAgICAgICAgICAgICAgICAgICAgICAgICAgICAgICAgICAgICAgICAgICAgICAgICAgICAgICAgICAg DQogICAgICAgICAgICAgICAgICAgICAgICAgICAgICAgICAgICAgICAgICAgICAgICAgICAgICAgICAg ICAgICAgICAgICAgICAgICAgICAgICAgICAgICAgIC AgICAgICAgICAgDQogICAgICAgICAgICAgICAgICAgICAgICAgICAgICAgICAgICAgICAgICAgICAgIC DrGXGhQXFqEVOnIYBiKNMoADIpJYDxYJMrWUXoDOXxEBWiPRXzKVNgCCZwONGqMXXvFZTiDAs7I3mcLA DkBLDgAM8lOJz8Sv2+BAhHSfQuFEH9muGiuB3JRF4z i2TbEAghSFTuz2TfJNe9OF4FGUBqUJpfCD3PKMbewc0JDRAfDIZpxBKOh4nkAjDdLFC7FIXxRvzqVZ5T FQJeI8zfjpXvAEZjVRRYWXwcLRYVNNptPBRNYKHoCZQaYaXmHvRmBDWqUNXhYNEKQT2FMkCtY6KgcV64 IDYNCj4+SBqxghLhPevKVoW5PPCpg7IxKTv0OC7FMB KjVbssi7CmQblvLYMCUOnzKW6XMAH7GIP1ZDQqMk9ZSMPhK138zfYrEM1OBh1FHyGpUW9spl5HBtqfKA BsLqkODni8ITenIG1AdPIzPPyEJhRdUkjoHXOajUL2HXN3MBJ4OYRIIAHqnVA4VdQ9KsVaPaFzXWP0PO RxQY2rOMiyUG6EZZQ8NAhrSBDlTHKlG5qQNpMbVPcp MMKndVrpDS0QBuDoE2LmzuDhfQZuPaIuPMTDNk5+HArrqwQeAbcPMxA5WNDtr1KhVRk6TK5ILGBoKMgw ZI1XMFSynA6xYTdmFD0LVvIaDBXkPFZRTkRxL24cnHXgIWf8M3KoJpWfKPLyEozcKZJdPYyvViWiCZHp WyBdDQogID4+ID4+IFxwTF0XGBpibjTgUDByQd1LAV MfTTThJC8kWTXxEWNiF8I8kKpcHKMVXtOiM3egedofTN2nCIOjJ030qTphzkCjIEI5RCMnNq9LLPJlFE L4DMTykNCcZdHrBVLBBXbxEI8PySRoELA5wD5hPLdoUGNkHJXgQ4eUJwBfjBstEN66gMdcxcFgmYZsQA o+Hw7DDX8zv4MzOSi6atBnBThlDTQ7NKagFIIvSASx LJMbRTL8GZT9GWPMEzOtGSPfHEQmMBabFPNwGTDoei0BJPQxEYEbSdM3VIGpJKRyZWCdNFgvVGNnEIN3 IRHsRWVuOEKfKP9AIgDsWLWyOQRjUDwuJYMuEUCuyy9UCSMjRAHbTsG2SwLiARNwVXKaYDncQDLzMPWv CaQqYAWhWWIoRB3ETqZjEEZaSHNmALqhOSIkATIjrc 2GOZJuSBDyZoW9EhFbJDCqLLFqSUwtFYNlWQV2ZSG9KSFkPXYcLX9DWiHgNUCzZWijQzWoUMNjKCPlbr 0SMBZhQCTiRER0GVWdLSAkKHDeIJvpCDTwVOGbXZD3DQRyBTXiUZ5RBvWxVAHgAERqYpAvDEXdYHCqol 1PYIDrNRJxVQX2QEZoHCCvMIXpYLjfUSGhBLM6DuI7 UBWqMEEfMQ0LXjZpYBMjGPC8CwMwUCYbNGYjbw2NVSBkLDFaCWy2YQNvPRJoOKBvASquDTAdGQS4QNzr VZMrCNNuCV4FAxYcMURhOUOkKRDrBSJfTJNtoy6QKJLaZQLtSjA6UYQxYKGkMTLbWBhaNXEqFRK9HIN3 RWQdKQFlCK6RMdOpXSLiVBf3EnKdREWuBARtnb1FRR YtEPIhIPY8QJLfECCuRKIxFXmrDDAuQEN5Kdl0AHOjQMJwDN8TEmPlVSDpCOd2AtLgFNEaRKAqiu8WCV ToZLEdFPbtKqGrTERhZCMeLXkhOWWkUFRdDTVbPPKyOOWoQU4PEsFoQVQsXaIiPsJjTVSnNVTlmo5SVL PmOQTbFXM5HUCmURFhAJMeACzoAWWaTMKuRQi4XQPb QHYuJZ6WPbOvSYZlYhI9IyJoLQDtWFLuaa0ITUAuXSIrMbOpXaEvVIEdZPLtQAcrFIIcBSQgSZG9JTMc MIFdMM5EGhFcZULxYwPgKxTyZHHvFGLvii0BDZUoBFMkTtTcRTPeOPVaUKYpYCmtPUZmVEM7MGhwUZSa FQMmYH2VNfDnSZUpAoJnMKGjSXQmQYSzhg8ZQOBaZX HpBKI8TJKkRWPxXQRdSKt1osBsgQBwMAd3SX9YX8DnsxCvAquVYo4Cl473BBH2JMCsNc7VP0oaFe5dJZ DmPJHKMk4GEPr8UVIqJTVhL8PqOoO6SEdnDVVkKEjmObFaKZYiQAWgFVK+EDf0FMFwSVH6XxZbQCqiR7 S7YJAwEWXuEIPzRuEyUXUjMO2hKNWWMv3+KAbdmHJqpOhpNJABOeJ5LKAlAPcuXKUWLf0R ID Date Data Source [id number] 04/25/2021 06:53:16 PM EDT [facility] Name Value Range Interpretation Code Description Data Arabella rce(s) Supporting Document(s) Care Plan [facility] UUIKOx0lQaLBBtWz90/WRKvbIQZlh9WhHIfmEGe2WNhjANSxL3DwPIC5kX2uZBF5TJlEYsRaXsJdHXU3 lbm [file] ICAgICAgICAgICAgICAgICAgICAgICAgICAgICAgIC AgICAgICAgICAgICAgICAgICAgICAgICAgICAgICAgICANCiAgICAgICAgICAgICAgICAgICAgICAgIC AgICAgICAgICAgICAgICAgICAgICAgICAgICAgICAgICAgICAgICAgICAgICAgICAgICAgICAgICAgIC AgICAgICAgICAgICAgICANCiAgICAgICAgICAgICAg ICAgICAgICAgICAgICAgICAgICAgICAgICAgICAgICAgICAgICAgICAgICAgICAgICAgICAgICAgICAg ICAgICAgICAgICAgICAgICAgICAgICAgICANCiAgICAgICAgICAgICAgICAgICAgICAgICAgICAgICAg ICAgICAgICAgICAgICAgICAgICAgICAgICAgICAgIC AgICAgICAgICAgICAgICAgICAgICAgICAgICAgICAgICAgICANCiAgICAgICAgICAgICAgICAgICAgIC AgICAgICAgICAgICAgICAgICAgICAgICAgICAgICAgICAgICAgICAgICAgICAgICAgICAgICAgICAgIC AgICAgICAgICAgICAgICAgICANCiAgICAgICAgICAg ICAgICAgICAgICAgICAgICAgICAgICAgICAgICAgICAgICAgICAgICAgICAgICAgICAgICAgICAgICAg ICAgICAgICAgICAgICAgICAgICAgICAgICAgICANCiAgICAgICAgICAgICAgICAgICAgICAgICAgICAg ICAgICAgICAgICAgICAgICAgICAgICAgICAgICAgIC AgICAgICAgICAgICAgICAgICAgICAgICAgICAgICAgICAgICAgICANCiAgICAgICAgICAgICAgICAgIC AgICAgICAgICAgICAgICAgICAgICAgICAgICAgICAgICAgICAgICAgICAgICAgICAgICAgICAgICAgIC AgICAgICAgICAgICAgICAgICAgICANCiAgICAgICAg ICAgICAgICAgICAgICAgICAgICAgICAgICAgICAgICAgICAgICAgICAgICAgICAgICAgICAgICAgICAg ICAgICAgICAgICAgICAgICAgICAgICAgICAgICAgICANCiAgICAgICAgICAgICAgICAgICAgICAgICAg ICAgICAgICAgICAgICAgICAgICAgICAgICAgICAgIC AgICAgICAgICAgICAgICAgICAgICAgICAgICAgICAgICAgICAgICAgICANCjw/dHVaF7lvqMWcmiG4A3 kuOp7DAn1NII4ss6KcBGZdCYmrpfBnWmlJNcCsZSYlWspPYgm4KWqiBX9MnVJdP1VaC5PcVXfoER2ZOV RsEHWeyRXwXWUpZYPtCsN4IPHvSQepXD5TqOHzVFlq QQQfEKNqMjIbMXTgGMLbJLOhFKJfRSOXTL0FXbUuE2IuzG01DWCQJe7+WEyrecDqYcfBLhJyEUZtd9Gp RRr6FO8IBUVsZxbkx5LzDkVnZXDBYMdhMK6OYWB5TWMoDYZhHy2ZSKGmY893siJhTP5SQs4IFiLnKI8e hg3NFgVnTPXvVffZAyo8ARykAP8OsULdTEnRYPLeQU OnKS8qJkgmJLS2u22kGM7fuLcxOz8eOYQeKU9bVz3bHWViXHM0GpCeDHTZFM5WETTeGYAdkVGiMUJyZE NARK3JBApwOJD7ImnaymDngQEqQIqpMC7GLGBcvxDzCbXhUXFPIQg+Ge4RLM9ld9SoBOltTnLhLE6qbi 8JMTsAGsYfS3R2gCDkK3Z9YMitMn5MQESvNLZgKqts XUJWXGztHL9MXA3vuxV0BK6LnNVpGATlOPJivBKcGRm4I41clQKcPToyTO0CAMH+Mau+Qc9XEFUgSIPy ACJgAkMaKNIHDcPhI7HbX3NJj6AgK9IbVO11pOrpcbPzZKwrOY2REY0gQNYeHPOFND5VyXFzoO1fiqAy BACeYNSQGqMbA37rdJVuWXOyIBJrKHSaQk6DITNrK9 BxwbDlkAzqtsZnMHOiLYPSGH4HLGfseoGheNXaiSjrQF30yUywBF3URy1OXpYlEU4sga9UqVXrWv6SYU OlLY3NQQBiTTLtNFJkJHZ1ZWBbDdJxYJkzZXJdJEBmAWP9CFQcXWNgVX2SMjGeNVOxWhR2DqByMBVdKW Yalz2ZHBXxWHFlQHTvAlRhXEAjXHAtSKzsGOQjRXTf BVY9YHStDDNcXL6YBlUdHJIoOCDpNLYuLXGaZFZxhx7NGDLgUAHnDpK9VhWbJRAoBCIyKGsgRJFiVRV3 CuJ8NDVhSNJmCA2VXtRiCWJsBLG7ADSzWKLwKXRftq1NNDEsPUAmSgU3JYLjUWKwVVTuHAzmGKYdKLH9 TJw2RBPhBBTxBD5KWvEvELNoSTb5LiDtJYYgDVQlji 0JSNLfHYMwDMX6RUSwBCVyJHFyYFtrNSEoMZB4BMW6WGEdBUWmQL9DNuTrLUGtAYzoWjVzAPSbVUKqqw 3WCHAcKSVxKDUnNLVvTKVjHPTiQMakOCLuGNAaHgn6PPWjIMYfNS4SQtMwRJZgBRM7BuQzQRRtCRRpeg 4BQRGqUZBoGHs1OPCvQUMeJZBvFThjGFZqVQBlCQB0 ARHbDMXgAY1YQdHcXSJvKyX8ExNmPFNsMSFnxr4JAOQqMGAwYnZoCsZaQSZhGKVyLRwiVCQaMNVhCQaa JVGnCOYeXF4HWuYePLYsTnHbZLmwWGVsVEScdu9KNTUhYUUnBLs8QYPnABWtQEJeQOkcNKYzRQR9QVW3 RKTaFBUtZZ9BNnHaHXTnBqXgTRDjPWHcGDGmjb6BDV IqJHGePrL1ZaSrISUoVUJhMKifQUYgRKQ5OBuuYBCnOTXjQN3WVaLpXDFoUbV2VJWmPNMuZJVvtx4SYR MoUPLbHtT3NqNlNBJiKTZbGIsbREHuJOJ2MGL3IFYaLOZnID3HEpLbFENwZnt0RGBiOHBwNVIxtq7SYU CmYEIrOAa8DINaMQCnCDIuRWs4drSvdVRbDAj4YU6Y H7XkqlHaXsNSIl7Jh782MIYyXEJvMw5YP7tuQj4jNDQdIUELUy4NWOo3SIE0QoChJNA1MXX9AdWyUXa8 CISgKag0OZOwTWO9Osl+VHy4QESdGQWyTqW3GNcdKSKkUTe5UKItRtkxNKYhMEdpML2bSFGZQs4+DQpz sYAfpVttENLFBkS2ZVq8IApbBGTMNq0X ID Date Data Source [id number] 04/25/2021 05:55:38 PM EDT [facility] Name Value Range Interpretation Code Description Data Arabella rce(s) Supporting Document(s) Consults [facility] YPTXBo6jWzCRBxSv90/MJNxdPISya0MgTEbfWLj3SHtbZGXeK2CeVHZ0rP7aOAM6DXuYOsUwKyOcQDZ0 lbm [file] CARLOS A+dAbBvuTjEkY7qDjSAn0WmfHDIe2hsySiWtq8wtF [file] s9Equ0IlOxLwReZf9jAFGAPt1+OYchgKLqpSptQICDZdRmXUBxSOwmWLXJXn9S ID Date Data Source [id number] 04/25/2021 05:13:00 PM EDT [facility] Name Value Range Interpretation Code Description Data Arabella rce(s) Supporting Document(s) Urine Color Yellow Light-Yellow,Yellow Normal (applies to no n-numeric results) [facility] Urine Appearance CLEAR CLEAR Normal (applies to non-numeric results) [facility] Urine Specific [place] 1.034 1.015-1.025 Above high normal [facility] Urine pH 6.5 5.0-7.0 Normal (applies to non-numeric resul ts) [facility] Urine Protein TR NEG Abnormal (applies to non-numeric results) [facility] Urine Glucose NEG NEG Normal (applies to non-numeric re sults) [facility] Urine Ketone NEG NEG Normal (applies to non-numeric res ults) [facility] Urine Bilirubin NEG NEG Normal (applies to non-numeric results) [facility] Urine Blood NEG NEG Normal (applies to non-numeric resu lts) [facility] Urine Urobilinogen NORM <0.2,1.0,<2.0,0.2 Abnormal (a pplies to non-numeric results) [facility] Urine Leukocyte Esterase NEG NEG Normal (applies to non -numeric results) [facility] Urine Nitrite NEG NEG Normal (applies to non-numeric re sults) [facility] The above 12 analytes were performed by [facility] [id number], ,[place] [address] ID Date Data Source [id number] 04/25/2021 05:04:00 PM EDT [facility] Name Value Range Interpretation Code Description Data Arabella rce(s) Supporting Document(s) T3 65.42 ng/dl 60.00-181.00 Normal (applies to non-numeric re sults) [facility] The above 1 analytes were performed by [facility] [id number], ,[place] [address] ID Date Data Source [id number] 04/25/2021 04:45:00 PM EDT [facility] Name Value Range Interpretation Code Description Data Arabella rce(s) Supporting Document(s) PT, No Coag Tx/Coag Tx Unk 11.7 Seconds 10.2-12.9 Judith l (applies to non-numeric results) [facility] Attention: Effeciive 01/03/2020 The nor mal range [...] 0.9-1.1 Nor mal (applies to non-numeric results) [facility] Suggested therapeutic INR ranges for ora l anticoagulant therapy: Indication:INRPrevention and treatment of DVT and PE2.0 - 3.0Prevention of systemic embolism with atrial fib., acute [place] and 2.0 -3.0 tissue prosthetic heart valves.Prevention of systemic embolism in patients with mechanical heart2.5 -3.5 valves.NOTE: The INR is only valid for patients on stable oral anticoagulanttherapy. The above 2 analytes were performed by [facility] [id number] [facility], ,[place] [address] ID Date Data Source [id number] 04/25/2021 04:45:00 PM EDT [facility] Name Value Range Interpretation Code Description Data Arabella rce(s) Supporting Document(s) PTT, No Coag Tx/Coag Tx Unk 30.1 Seconds 25.1-36.5 Norm al (applies to non- numeric results) [facility] Attention: Effective 01/03/2020Please no te the change in reference range for PTT (No Coag Tx/Coag TxUnk) ResultsPrevious Reference Range: 24.9-30.6 secondsNew Reference Range: 25.1-36.5 secondsDiscrepant results may occur due to anticoagulant effects such asheparin, direct thrombin inhibitors; argatroban (Acova), bivalirudin(Angiomax) or dabigatran (Pradaxa) or direct factor Xa inhibitors;rivaroxaban (Xarelto), apixaban (Eliquis) and edoxaban (Savaysa).The above 1 analytes were performed by [facility] [id number] [facility], ,[place] [address] ID Date Data Source [id number] 04/25/2021 04:33:00 PM EDT [facility] Name Value Range Interpretation Code Description Data Arabella rce(s) Supporting Document(s) WBC 6.78 x1000/ul 4.80-10.00 Normal (applies to non-numeric re sults) [facility] RBC 3.60 x1Mil/ul 4.20-5.40 Below low normal [facility] Hemoglobin 9.3 g/dl 12.0-16.0 Below low normal [facility] Hematocrit 30.3 % 37.0-47.0 Below low normal [facility] MCV 84.2 fL 81.0-99.0 Normal (applies to non-numeric resul ts) [facility] MCH 25.8 pg 27.0-31.0 Below low normal [facility] MCHC 30.7 g/dl 32.2-37.0 Below low normal [facility] RDW 15.3 % 11.5-14.5 Above high normal [facility] Platelet Count 266 x1000/ul 130-400 Normal (applies to non-numeric results) [facility] MPV 10.1 fL 9.4-12.4 Normal (applies to non-numeric resul ts) [facility] Neutrophils 43.7 % 40.0-74.0 Normal (applies to non-numeric resu lts) [facility] Lymphocytes 44.7 % 19.0-48.0 Normal (applies to non-numeric resu lts) [facility] Monocytes 9.1 % 3.4-9.0 Above high normal [facility] Eosinophils 1.3 % 0.0-7.0 Normal (applies to non-numeric resu lts) [facility] Basophils 0.9 % 0.0-2.0 Normal (applies to non-numeric resul ts) [facility] Immature Granulocytes 0.3 % 0.0-0.5 Normal (applies to non-nu meric results) [facility] Nucleated RBCs 0.00 % 0.00-0.20 Normal (applies to non-numeric r esults) [facility] Abs. Neutrophils 2.96 x1000/ul 1.92-8.31 Normal (applies to non-numeric results) [facility] Abs. Lymphocyte 3.03 x1000/ul 1.20-3.70 Normal (applies to non-n umeric results) [facility] Abs. Monocytes 0.62 x1000/ul 0.14-0.97 Normal (applies to non-nu meric results) [facility] Abs. Eosinophils 0.09 x1000/ul 0.00-0.76 Normal (applie s to non-numeric results) [facility] Abs. Basophils 0.06 x1000/ul 0.00-0.22 Normal (applies to non-n umeric results) [facility] Abs. Immature Gran. 0.02 x1000/ul 0.00-0.02 Normal (appl ies to non-numeric results) [facility] Abs. Nucleated RBCs 0.00 x1000/ul 0.00-0.02 Normal (appl ies to non-numeric results) [facility] The above 24 analytes were performed by [facility] [id number], ,[place] [address] ID Date Data Source [id number] 04/25/2021 05:24:00 PM EDT [facility] Name Value Range Interpretation Code Description Data Arabella rce(s) Supporting Document(s) Lipase 162 IU/L 73-393 Normal (applies to non-numeric resul ts) [facility] The above 1 analytes were performed by [facility] [id number], ,[place] [address] ID Date Data Source [id number] 04/25/2021 05:24:00 PM EDT [facility] Name Value Range Interpretation Code Description Data Arabella rce(s) Supporting Document(s) Magnesium 2.3 mg/dl 1.6-2.6 Normal (applies to non-numeric resul ts) [facility] The above 1 analytes were performed by [facility] [id number], ,[place] [address] ID Date Data Source [id number] 04/25/2021 05:24:00 PM EDT [facility] Name Value Range Interpretation Code Description Data Arabella rce(s) Supporting Document(s) AST 11 IU/L 15-37 Below low normal [facility] Sulfasalazine and sulfapyridine have the potential to falsely depressAspartate Aminotransferase results. Baseline values before medication administration are recommended. ALT 17 IU/L 13-56 Normal (applies to non-numeric resul ts) [facility] Sulfasalazine and sulfapyridine have the potential to falsely depressAlanine Aminotransferase results. Baseline values before medication administration are recommended. Alkaline Phosphatase 56 mIU/ml 50-136 Normal (applies to non-num madiha results) [facility] Total Bilirubin 0.80 mg/dl 0.20-1.00 Normal (applies to non-numeric results) [facility] Blood Urea Nitrogen 12 mg/dl 7-18 Normal (applies to non-nume ny results) [facility] Creatinine 0.69 mg/dl 0.51-0.95 Normal (applies to non-numeric resul ts) [facility] N-Acetylcysteine (NAC) and Metamizole em ve the potential to falselydepress Creatinine results. Baseline values before medication adminstration are recommended. Patients undergoing treatment with phenindione will have falselydepressed results. Patients on phenindione therapy should be tested with an alternativeCREA method.Toxic levels of acetaminophen may lead to falsely depressed results forpatient samples. Glomerular Filtration Rate >90.00 mL/min/1.73m2 [facility] GFR Reference Ranges:Normal Function or Mild Renal [...] of Health and the National KidneyFoundation. The [place] method used in calculating this result is traceable to IDMS standards. Glucose 81 mg/dl 70-110 Normal (applies to non-numeric resul ts) [facility] Sulfasalazine has the potential to false ly depress Glucose results. Sulfapyridine has the potential to falsely elevate Glucose results. Baseline values before medication administration are recommended. Calcium 7.8 mg/dl 8.5-10.1 Below low normal [facility] Total Protein 6.4 g/dl 6.4-8.2 Normal (applies to non-numeric re sults) [facility] Albumin 3.0 g/dl 3.4-5.0 Below low normal [facility] Sodium 140 mEq/L 136-145 Normal (applies to non-numeric resul ts) [facility] Potassium 4.0 mEq/L 3.5-5.1 Normal (applies to non-numeric resul ts) [facility] Chloride 113.0 mEq/L 98.0-107.0 Above high normal [facility] Anion Gap 10.2 [facility] Carbon Dioxide 20.8 mMol/L 21.0-32.0 Below low normal [facility] The above 16 analytes were performed by [facility] [id number] [facility], ,[place] [address] ID Date Data Source [id number] 04/25/2021 05:24:00 PM EDT [facility] Name Value Range Interpretation Code Description Data Arabella rce(s) Supporting Document(s) TSH 28.10 uIU/ml 0.36-3.74 Above high normal [facility] Concentrations of Biotin above 100 ng/mL can potentially result ininterference.The above 1 analytes were performed by [facility] [id number] [facility], ,[place] [address] ID Date Data Source [id number] 04/25/2021 05:24:00 PM EDT [facility] Name Value Range Interpretation Code Description Data Arabella rce(s) Supporting Document(s) T4, Free 0.63 ng/dl 0.59-1.61 Normal (applies to non-numeric resul ts) [facility] The above 1 analytes were [facility] [id number], ,[place] [address] ID Date Data Source [id number] 04/25/2021 03:04:52 PM EDT [facility] Name Value Range Interpretation Code Description Data Arabella rce(s) Supporting Document(s) Progress Notes [facility] [id number] [file] [id number] ID Date Data Source [id number] 04/25/2021 07:30:00 AM EDT [facility] l CT SCAN OF THE ABDOMEN [...] rce(s) Supporting Document(s) ID Date Data Source [id number] 04/25/2021 04:43:00 AM EDT [facility] Name Value Range Interpretation Code Description Data Arabella rce(s) Supporting Document(s) COVID-19 NEGATIVE [facility] and reported by [facility]. ID Date Data Source [id number] 04/25/2021 05:04:00 AM [facility] [id number] Name Value Range Interpretation Code Description Data Arabella rce(s) Supporting Document(s) COVID-19 NEGATIVE NEGATIVE [facility] Negative results should be treated as pr [...] are for the indentification of SARS-CoV-2 RNA. ZepCQQL-DgP-9 RNA is generally detectable in respiratorysamples during the actue phase of infection. ID Date Data Source [id number] 04/25/2021 01:27:00 AM EDT [facility] l TSYSORDER [id number] Name Value Range Interpretation Code Description Data Arabella rce(s) Supporting Document(s) TSH 44.303 uIU/mL 0.358-3.74 H [facility] ID Date Data Source [id number] 04/25/2021 01:24:00 AM EDT [facility] l TSYSORDER [id number] Name Value Range Interpretation Code Description Data Arabella rce(s) Supporting Document(s) LACTIC ACID 0.8 mmol/L 0.4-2.0 [facility] ID Date Data Source [id number] 04/25/2021 01:24:00 AM EDT [facility] l TSYSORDER [id number] Name Value Range Interpretation Code Description Data Arabella rce(s) Supporting Document(s) C REACTIVE PROTEIN < 0.5 mg/L 0.0-3.0 [facility] ID Date Data Source [id number] 04/25/2021 01:24:00 AM EDT [facility] TSYSORDER [id number] Name Value Range Interpretation Code Description Data Arabella rce(s) Supporting Document(s) MAGNESIUM 2.3 mg/dL 1.8-2.4 [facility] ID Date Data Source [id number] 04/25/2021 01:24:00 AM EDT [facility] TSYSORDER [id number] R [id number] Name Value Range Interpretation Code Description Data Arabella rce(s) Supporting Document(s) LIPASE 308 U/L 73-393 [facility] ID Date Data Source [id number] 04/25/2021 01:24:00 AM EDT [facility] TSYSORDER [id number] Name Value Range Interpretation Code Description Data Arabella rce(s) Supporting Document(s) GLUCOSE 93 mg/dL 74-106 [facility] BLOOD UREA NITROGEN 19 mg/dL 7-18 H [facility] ital CREATININE 0.80 mg/dL 0.6-1.0 [facility] SODIUM 137 mmol/L 136-145 [facility] POTASSIUM 5.2 mmol/L 3.5-5.1 H [facility] CHLORIDE 103 mmol/L 98-107 [facility] CO2 23 mmol/L 21-32 [facility] CALCIUM 9.2 mg/dL 8.5-10.1 [facility] ANION GAP 11.0 mmol/L 5-12 [facility] GLOMERULAR FILTRATION RATE 80 mL/min [facility] GFR IS CALCULATED IN mL/min/1.73m2 JUDITH L FUNCTION: >90MILDLY DECREASED: 60-89MILDY TO MODERATELY DECREASED: 45-59 MODERATELY TO SEVERELY DECREASED: 30-44SEVERELY DECREASED: 15-29RENAL FAILURE: <15 AST 28 U/L 15-37 [facility] ALT 24 U/L 12-78 [facility] ALKALINE PHOSPHATASE 70 U/L 46-116 [facility] pital TOTAL BILIRUBIN 0.5 mg/dL 0.2-1.0 [facility] TOTAL PROTEIN 7.9 g/dl 6.4-8.2 [facility] ALBUMIN 3.7 gm/dL 3.4-5.0 [facility] ID Date Data Source [id number] 04/25/2021 12:58:00 AM EDT [facility] TSYSORDER [id number] Name Value Range Interpretation Code Description Data Arabella rce(s) Supporting Document(s) WHITE BLOOD COUNT 9.7 K/mm3 4.0-10.0 [facility] 4.28 M/mm3 4.00-5.50 [facility] HEMOGLOBIN 11.1 gm/dL 12.0-16.0 L [facility] HEMATOCRIT 34.7 % 36.0-48.8 L [facility] MEAN CELL VOLUME 81.1 fl 80-96 [facility] MEAN CORPUSCULAR HEMOGLOBIN 25.9 pg 27.0-31.0 L [facility] MEAN CORPUSCULAR HGB CONC 32.0 g/dl 32.0-36.0 [facility] RED CELL DISTRIBUTION WIDTH 15.1 % 10.0-14.5 H [facility] PLATELET COUNT 169 K/mm3 172-450 L [facility] MEAN PLATELET VOLUME 11.9 fl 9.0-13.0 [facility] pital GRAN % 49.6 % 50-80.0 L [facility] IG% 0.1 % 0.0-0.2 [facility] LYMPH % 39.5 % 25.0-50.0 [facility] MONO % 8.5 % 2.0-10.0 [facility] EOS % 1.4 % 0-5.0 [facility] BASO % 0.9 % 0.0-2.0 [facility] GRAN # 4.8 K/mm3 2.0-8.00 [facility] IG# 0.0 K/mm3 0.0-0.2 [facility] LYMPH # 3.8 K/mm3 1.0-5.0 [facility] MONO # 0.8 K/mm3 0.10-1.20 [facility] EOS # 0.1 K/mm3 0.0-0.5 [facility] BASO # 0.1 K/mm3 0.0-0.2 [facility] ID Date Data Source [id number] 04/16/2021 06:48:00 PM EDT [facility] Patient: SIENNA FOSTER Observation Re port - [facility].VisitID: [id number] [place] [address] [phone] hilliard Date/Time: 04/12/2021 20:14 Weight:74.8 kg (S). [...] rce(s) Supporting Document(s) ID Date Data Source [id number] 04/13/2021 06:12:00 PM EDT [facility] l DATE OF EXAMINATION: 04/12/2021 21:05 [...] rce(s) Supporting Document(s) ID Date Data Source [id number] 04/12/2021 10:15:00 PM EDT [facility] l TSYSORDER [id number] Name Value Range Interpretation Code Description Data [facility] rce(s) Supporting Document(s) LIPASE 368 U/L 73-393 [facility] ID Date Data Source [id number] 04/12/2021 10:15:00 PM EDT [facility] TSYSORDER [id number] Name Value Range Interpretation Code Description Data [facility] rce(s) Supporting Document(s) GLUCOSE 87 mg/dL 74-106 [facility] BLOOD UREA NITROGEN 19 mg/dL 7-18 H [facility] ital CREATININE 0.82 mg/dL 0.6-1.0 [facility] SODIUM 139 mmol/L 136-145 [facility] POTASSIUM 4.3 mmol/L 3.5-5.1 [facility] CHLORIDE 103 mmol/L 98-107 [facility] CO2 24 mmol/L 21-32 [facility] CALCIUM 9.7 mg/dL 8.5-10.1 [facility] ANION GAP 12.0 mmol/L 5-12 [facility] GLOMERULAR FILTRATION RATE 78 mL/min [facility] GFR IS CALCULATED IN mL/min/1.73m2 JUDITH L FUNCTION: >90MILDLY DECREASED: 60-89MILDY TO MODERATELY DECREASED: 45-59 MODERATELY TO SEVERELY DECREASED: 30-44SEVERELY DECREASED: 15-29RENAL FAILURE: <15 AST 10 U/L 15-37 L [facility] ALT 26 U/L 12-78 [facility] ALKALINE PHOSPHATASE 77 U/L 46-116 [facility] TOTAL BILIRUBIN 0.6 mg/dL 0.2-1.0 [facility] TOTAL PROTEIN 8.5 g/dl 6.4-8.2 H [facility] ALBUMIN 4.0 gm/dL 3.4-5.0 [facility] ID Date Data Source [id number] 04/12/2021 10:13:00 PM EDT [facility] [id number] Name Value Range Interpretation Code Description Data Arabella rce(s) Supporting Document(s) HCG,SERUM NEGATIVE NEGATIVE [facility] False negative results may occur when th e levels of hCG arebelow the sensitivity level of the test. If isstill suspected, a first morning urine specimen should becollected 48hrs later.This test has a sensitivity of 10mIU/mL in serum zzi89zTK/mL in urine. ID Date Data Source [id number] 04/12/2021 09:56:00 PM EDT [facility] [id number] Name Value Range Interpretation Code Description Data Arabella rce(s) Supporting Document(s) WHITE BLOOD COUNT 10.7 K/mm3 4.0-10.0 H [facility] jay RED BLOOD COUNT 4.20 M/mm3 4.00-5.50 [facility] HEMOGLOBIN 11.1 gm/dL 12.0-16.0 L [facility] HEMATOCRIT 33.5 % 36.0-48.8 L [facility] MEAN CELL VOLUME 79.8 fl 80-96 L [facility] l MEAN CORPUSCULAR HEMOGLOBIN 26.4 pg 27.0-31.0 L [facility] MEAN CORPUSCULAR HGB CONC 33.1 g/dl 32.0-36.0 [facility] RED CELL DISTRIBUTION WIDTH 15.7 % 10.0-14.5 H [facility] PLATELET COUNT 358 K/mm3 172-450 [facility] MEAN PLATELET VOLUME 10.7 fl 9.0-13.0 [facility] pital GRAN % 62.7 % 50-80.0 [facility] IG% 0.2 % 0.0-0.2 [facility] LYMPH % 27.7 % 25.0-50.0 [facility] MONO % 8.4 % 2.0-10.0 [facility] EOS % 0.5 % 0-5.0 [facility] BASO % 0.5 % 0.0-2.0 [facility] GRAN # 6.7 K/mm3 2.0-8.00 [facility] IG# 0.0 K/mm3 0.0-0.2 [facility] LYMPH # 3.0 K/mm3 1.0-5.0 [facility] MONO # 0.9 K/mm3 0.10-1.20 [facility] EOS # 0.1 K/mm3 0.0-0.5 [facility] BASO # 0.1 K/mm3 0.0-0.2 [facility] ID Date Data Source [id number] 04/12/2021 09:16:00 PM EDT [facility] spital TSYSORDER [id number] Name Value Range Interpretation Code Description Data Arabella rce(s) Supporting Document(s) URINE RBC 1-3 /hpf 0-3 [facility] URINE WBC 0-2 /hpf 0-5 H [facility] URINE EPITHELIAL CELLS 1+ /hpf [address] [facility] ospital URINE BACTERIA 3+ NONE SEEN H [facility] ID Date Data Source [id number] [id number] 04/12/2021 09:15:00 PM EDT [facility] ital TSYSORDER [id number] Name Value Range Interpretation Code Description Data Arabella rce(s) Supporting Document(s) URINE COLOR. [facility] URINE APPEARANCE CLEAR [facility] URINE GLUCOSE (UA) NEGATIVE mg/dL NEGATIVE [facility] URINE BILIRUBIN NEGATIVE NEGATIVE [facility] URINE KETONE NEGATIVE mg/dL NEGATIVE [facility] SPECIFIC GRAV[facility],URINE 1.020 1.005-1.030 [facility] URINE BLOOD TRACE NEGATIVE H [facility] PH,URINE 5.5 5.0-9.0 [facility] URINE PROTEIN NEGATIVE mg/dL [facility]GATIVE [facility] UROBILINOGEN NORMAL(0.2-1) mg/dL 0-1 R [facility] URINE NITRATE NEGATIVE NEGATIVE [facility] URINE LEUKOCYTE ESTERASE NEGATIVE NEGATIVE [facility] ID Date Data Source [id number] 04/02/2021 12:00:00 AM EDT [facility] Name Value Range Interpretation Code Description Data Arabella rce(s) Supporting Document(s) SARS-CoV-2 NEGATIVE [facility] This lab was ordered by [facility] and reported by [employer]. ID Date Data Source [id number] 04/02/2021 12:00:00 AM EDT [facility]) Name Value Range Interpretation Code Description Data Arabella rce(s) Supporting Document(s) SARS-CoV-2 (COVID-19) RNA [Presence] in Respiratory specimen by MELINDA with probe detection negative negative Sars-cov-2 [facility] ([facility]) ID Date Data Source [id number] 04/02/2021 12:00:00 AM EDT [facility] ([facility]) Name Value Range Interpretation Code Description Data Arabella rce(s) Supporting Document(s) ID Date Data Source [id number] 03/31/2021 07:42:12 PM EDT [facility] Name Value Range Interpretation Code Description Data Arabella rce(s) Supporting Document(s) Discharge Summary [facility] CNBNJc7zDnMXRtZb89/VLParPWUfs4YdQHnyPNb2WZguQIBhO5UkFZL0xF4xSJS4XJlTIcLnLqGgXQDs [facility] [file] LV1qBCs+Qp5Vv2QmcxJ7zlZdBTi2LPJ8GG9VEFFTC4SYHq== ID Date Data Source [id number] 03/27/2021 08:58:00 PM EDT [facility] Name Value Range Interpretation Code Description Data Arabella rce(s) Supporting Document(s) Nursing Note [facility] VAWWSv3yKnZBBmWs51/RFNkgLEKxe2PsNLufRPr2UUhvLREbC9IdYIB2oM0uIKX6VIoGWkNfOrQgMCT8 lbm [file] NmlhXAzvFGEVVk7C ID Date Data Source [id number] 03/27/2021 08:57:40 PM EDT [facility] Name Value Range Interpretation Code Description Data Arabella rce(s) Supporting Document(s) Care Plan [facility] QNOJIq4gNoTRZyYi38/XFKkoWLBnj3SrGDjfUKp5DXlrUDLpQ5PjOXX4yC2hHWY8YPvASkRyCgLjHSX2 lbm [file] PvRX9UDl8VWuZ5ZGZ4oKOlOx0KLjKdTPERKaHvIG3INAp= ID Date Data Source [id number] 03/27/2021 11:56:07 AM EDT [facility] Name Value Range Interpretation Code Description Data Arabella rce(s) Supporting Document(s) Nursing Note [facility] KZMMOr5gUbXLGzEk87/BQCxxHQCtd4GfAEjzHVz5PBroPUHhG0HmYCU0bY0aSTT5OKrDReVmPfPaNDQ9 lbm [file] health insurance adjuster/VbYra/45EbLJ9nzzl7kyPXUtXGW3WJhIzv2p3kAxfsb/BvRC0+d0ko68jr5rAg7to9kF/DPMscSF [file] 9GDQo= ID Date Data Source [id number] 03/27/2021 10:35:44 AM EDT [facility] Name Value Range Interpretation Code Description Data Arabella rce(s) Supporting Document(s) Perioperative Nursing Note [facility] WWZJGi2tOmSGPgFg43/TMOqeDSRyn6PpUJbrTDe3CBffGZJeS4HhZAU3uU2vTTS4XEyNAmUdRaQmYWZ2 lbm TaKdlBQxEyVADxRqdKYmXdRFmyZiiksGEpVT4YvXY0EMVyH10pNOZaHSDoH2ShHQl4NX7+GRitHFH3xw DjhE1GZXTGH5mx7xOGhJ+wf+MeIwEOUDh1KMFXhwfJSJJppl/XYDKoo7xWtNAVZaoXT8vl7THMyGnuYy iq2dXQ41lHLiyF9x3kdPUTIWHx//AoFIPpEt6+gcrN Ayq29pDmCzaPuWMULcqBb52WlKLwBEG7lKGR5XctvUdXBGWwCV5srEULibu6IHIbJ2ZfMBVUSIVwYux4 QDjTeSFKEuunlKM+RpTM128jNLuwaCknIl3pUdn2IT6pkNDqWSi5LFcsygxH8fa3ctsFhD7cA96sd3Nq RQvIt2+Mvm/lGv1Xz5VVjeIpKh+cY+dHcrQOX9Kisq YK6o2crok8fPHmBAxWwAC2DvcwaYLdOrNGXDGYZ0RC09lc2TRr4c0zYpxTXc+RxSBQz2egB8tfVL0QhQ tBzWf5TRrkhf5crmApKZ8nLMD2TF/sqlbKX3YwmNDN5l2tIJIrXi6l2Zpe6H05d223JWtwqWIKjvTeqf EiRu7rQDxkvpP/qkY2FIcKmrQFCGgRIBVu8lsh6GWg REYES+dYI7eCMp9q1jE8itJxA9N3Au2W2zEknzM1k5S2Z9rpp8KkEY/I9eTD2uqpaRXnmDbg95RNTY+Lt3E [file] OUPzBoSmJ4XJzxQZYFCf7N ID Date Data Source [id number] 03/27/2021 10:29:41 AM EDT [facility] Name Value Range Interpretation Code Description Data Arbaella rce(s) Supporting Document(s) Perioperative Nursing Note [facility] FJYGMe2zGjZRLhRe11/WRKysHRVkw6EkAOesFYf8YNbkQMHpX9PeAZJ2kG6lLKM2QDiLTmLkHtTdPEF0 lbm [file] BgXzZR3URQz= ID Date Data Source [id number] 03/27/2021 10:29:01 AM EDT [facility] Name Value Range Interpretation Code Description Data Arabella rce(s) Supporting Document(s) Anesthesia Postprocedure Evaluation [facility] AZOZYc9yTqTAZyVv04/ESOcxVACyb9ZdIZvqBHo1OQjaVIYmP5CsYBI7nN9zVLK8HGrYRaRzOhZvGRM7 lbm [file] Printer Repair Technician+xUJ4hgYd7WSylLk0Cow8iBjl3f4hP/LnE3meg8ykY0B0aMa4NUx4mCY5Z20iRE/NPfbi2HkkLE+NE u2tNuMUuv3EYJDGs0nq1LDRxcpt/4lhNkGsdAWV56w bEIPfvkbeoFH34IeTjngndXwiYHv8k7Rh24sQM0slBNi+/6fwI0Kpz5JmD3AXoQ7zSr4aRZBDfhb7s1a Cxv0gQV7rLLwxsb57QShI6MhnYk6Rf3nzK67aVE2yv9qp9VuejRuxH2tzYTuLgPJXSC/Nxq2zRLBtJ6A C8vSn924fIA4yHZD1MgmcWBhW5vNcvwkBzYk8fIQVS 5sB2dPonHnUnRwbDG52I1lAOlLr/9dD5xNjX6fSxk0jlQGqXIde+QWjGPWw6/BISnlq3rxNeZ+5Mx96G D85sGZDaDwX31a1kLbwozbXsN2HgHNJ3EfVuUtwQGTurWsnugBEaeyBfxeqGNV0gx73U7tm08xJ3I3De VJG5Lat4nNF+y80AAb0hVfIvN7NmvfwFcbgcCNdW8k nYYLifsCnmDveN3hEhQ1isaH6Q75N10TW9md1q8sHZ1vk9xc5WJLUkT6T6GZ2jLoSIXVca1s12KiC0NT 9jVo4hnlM3lSxo+1tSk292CjOiRV/SHwxFM0+DoiHvaYx4nrwJv4sCZNWs3J0qVXogRK99uvUaXbNRe4 5ybqhfYAAbWuoI2XEY29Aj/vlad/yFxHNNgZQ9ncbfT [file] Rg0K ID Date Data Source [id number] 03/27/2021 10:28:51 AM EDT [facility] Name Value Range Interpretation Code Description Data Arabella rce(s) Supporting Document(s) [facility] YBHACv9qMyXJFjKq39/LCTshLNYop5VlAIusGQg2KMunLRVfB7TzNFI1tX2fMJW6FQnHOhSxJhZqLPM1 lbm [file] UqCMC1UXKhSTE3OVJvNQDmMnNeUA2ZSf9BHzB6ADY9zWXvLf7ENbPeUaHXGgRlAI5HJIs= ID Date Data Source [id number] 03/28/2021 09:48:00 AM EDT [facility] [address] [place] [address] [employer] [facility] CLIA# [id number] Surgical Pathology ReportPATIENT: SIENNA FOSTER CASE NUMBER:[id number] #: [id number] Date Collected:03/27/2021ccount #: [id number] Date Received:03/27/2021OB: 1980 Age: 40 y.o. Date [...] cassette. AP/jarodk Electronically SignedBy:ICD: R89.7x2 Wai Castañeda, [facility] [place]: [id number] PathologistI ATTEST THAT THE ABOVE DIAGNOSIS IS BASED UPON MY PERSONAL MICROSCOPIC EXAMINATION OF THE SLIDES (AND/OR OTHER MATERIAL), AND THAT I HAVE REVIEWED AND APPROVED THIS REPORT.PERFORMED AT: [facility] [address] [place], [place] [address]THE TECHNICAL COMPONENT WAS PERFORMED AT [facility], [address] [place] [address].FIGHTING VEHICLE INFANTRYMAN: WAI CASTAÑEDA M.D. [facility]# [id number].SIENNA FOSTER Page 1 of 1 Name Value Range Interpretation Code Description Data Arabella rce(s) Supporting Document(s) ID Date Data Source [id number] 03/27/2021 09:15:49 AM EDT [facility] Name Value Range Interpretation Code Description Data Arabella rce(s) Supporting Document(s) Anesthesia Preprocedure Evaluation [facility] MAYEFx3oXqDZNiTp29/ZGCozTZIml6IxMAmyRQl8KBjtRHMsX1KjTML8bL4vKSB9WGiRIwVnTiPgYMH2 lbm [file] 9Y5jwb6A+b6BooWd2XOy91FMNHFmWe99bj95U0+domain architect [file] QjonW8uyTpPUzvYVG6FL8XXHUWR6LDWx== ID Date Data Source [id number] 03/27/2021 01:32:01 AM EDT [facility] Name Value Range Interpretation Code Description Data Arabella rce(s) Supporting Document(s) Nursing Note [facility] SNGMXn1oItHCOkTd58/ULZsbNOKpk6UoLPfxKLh7BJcrHNFoN5FcCSD7sR9hMMS8TSkLCsPwXcVnZGN5 lbm [file] I7CSOdXTW7PoF0CFP8MBexXnViQV5UUd9GHoL5VUN9mDDbWz8OGjarXL9JOLTJE7CLLg== ID Date Data Source [id number] 03/27/2021 01:30:51 AM EDT [facility] Name Value Range Interpretation Code Description Data Arabella rce(s) Supporting Document(s) Care Plan [facility] GUAFKy8mAjWXBqBy78/PECouNMThz5FjRNruIHj6MIqzAVDpN3MmCLK8nT5tMAY6JGeFGbPfQeUvGQN0 lbm [file] PoMbjiNKAnDQB8UGu4KTiuPxwqK1JjJQs+ZY1tJTt+Se1Ld7YtajG3qvMaKCx3PPj6HPeyZHZCAm4C ID Date Data Source [id number] 03/26/2021 06:10:50 PM EDT [facility] Name Value Range Interpretation Code Description Data Arabella rce(s) Supporting Document(s) Nursing Note [facility] WAWCVn9kLpIAGrZd11/TAZgpBZKyk6MfZDbsTDa2PJlfVZGcB4PpUWT5fQ5wFFJ2GAxUKcCtUbWkNJM0 lbm [file] urIDAQBb3V ID Date Data Source [id number] 03/26/2021 06:01:18 PM EDT [facility] Name Value Range Interpretation Code Description Data Arabella rce(s) Supporting Document(s) Progress Notes [facility] AAOJTd2mXlTXUkBk56/DJDluLCXnz8WeLZmiUFs9QKaoWTUrY6MeFTH1eK3sEZW7YViPIgBiZbMfXQZ8 lbm [file] B7DQP5DMjwXIQHBd6V ID Date Data Source [id number] 03/31/2021 04:38:00 PM EDT [facility] Name Value Range Interpretation Code Description Data Arabella rce(s) Supporting Document(s) Calprotectin, F <16 mcg/g <=50.0 (Normal) Normal (applies to non-numeric results) [facility] Test Performed by:[facility] [address] [address] Director: Rashawn Vides M.D. Ph.D.; CLIA# [id number] above 1 analytes were performed by [facility] ([id number]) ID Date Data Source [id number] 03/27/2021 11:30:00 AM EDT [facility] Name Value Range Interpretation Code Description Data Arabella rce(s) Supporting Document(s) Campylobacter Not Detected Not Detected Normal (applies to non-nume ny results) [facility] Norovirus Not Detected Not Detected Normal (applies to non-numeric r esults) [facility] Rotavirus Not Detected Not Detected Normal (applies to non-numeric r esults) [facility] Salmonella Not Detected Not Detected Normal (applies to non-numeric r esults) [facility] Shiga Toxin 1 Not Detected Not Detected Normal (applies to non-nume ny results) [facility] Shiga Toxin 2 Not Detected Not Detected Normal (applies to non-nume ny results) [facility] Shigella Not Detected Not Detected Normal (applies to non-numeric r esults) [facility] Vibrio Not Detected Not Detected Normal (applies to non-numeric r esults) [facility] Y. enterocolitica Not Detected Not Detected Normal (applie s to non-numeric results) [facility] Enteric Pathogen Panel:Testing performed by reverse supervisor carton and can supply, PCR and array hybridization.A negative test result does not rule out the presence of diseaseThe above 9 analytes were performed by [facility] [id number] Christo HallmanChip[facility]# [id number],[place] [address] ID Date Data Source [id number] 03/26/2021 02:23:09 PM EDT [facility] Name Value Range Interpretation Code Description Data Arabella rce(s) Supporting Document(s) Progress Notes [facility] JMYXNq1pPzDBThQw62/LZFkwSHJau3LpFMzqJSq2FCazPFYmO7UdEXN5wI4bSDT2EVaSKrCrIoJmYXG3 [facility] [file] OcFnNoJ4YYksSIR3HUSfCASqFyf+QF9pOGs+Jp1Oi6IutjQ1sfJxSMldQfS8Oa6TAYEZZ5UBQk== ID Date Data Source [id number] 03/26/2021 12:38:41 PM EDT [facility] Name Value Range Interpretation Code Description Data Arabella rce(s) Supporting Document(s) Care Plan [facility] WTKYNx6tZiXINgNe97/AYAccSHEpj5VaQVqjQBf2JQglBFWhW0GyDBE4jT4pVOQ6GWcQVbUcFjRsVWR9 lbm [file] josé miguel/VnCugzHbVNoTqN+kwGUvSPziYld6xcUv2SgZznUthhPW16LU3N4zD8YwJHaE1AV0QROnSv3cD4/5 [file] certified fraud examiner+oJxlqXcWsmX90Z2f6Ip8RN/V00gYYrJL5JLrN4Ku7Hx233CYqem1azyrk/0L/Eb7GUEof4ffXl/l [file] AgICAgICAgICAgICAgICAgICAgICAgICAgICAgICAgICAgICAgICAgICAgICAgICAgICAgICAgICAgIC AgICAgICAgICAgICAgICAgICAgICAgICAgDQogICAg ICAgICAgICAgICAgICAgICAgICAgICAgICAgICAgICAgICAgICAgICAgICAgICAgICAgICAgICAgICAg ICAgICAgICAgICAgICAgICAgICAgICAgICAgICAgICAgICAgDQogICAgICAgICAgICAgICAgICAgICAg ICAgICAgICAgICAgICAgICAgICAgICAgICAgICAgIC AgICAgICAgICAgICAgICAgICAgICAgICAgICAgICAgICAgICAgICAgICAgICAgDQogICAgICAgICAgIC AgICAgICAgICAgICAgICAgICAgICAgICAgICAgICAgICAgICAgICAgICAgICAgICAgICAgICAgICAgIC AgICAgICAgICAgICAgICAgICAgICAgICAgICAgDQog ICAgICAgICAgICAgICAgICAgICAgICAgICAgICAgICAgICAgICAgICAgICAgICAgICAgICAgICAgICAg ICAgICAgICAgICAgICAgICAgICAgICAgICAgICAgICAgICAgICAgDQogICAgICAgICAgICAgICAgICAg ICAgICAgICAgICAgICAgICAgICAgICAgICAgICAgIC AgICAgICAgICAgICAgICAgICAgICAgICAgICAgICAgICAgICAgICAgICAgICAgICAgDQogICAgICAgIC AgICAgICAgICAgICAgICAgICAgICAgICAgICAgICAgICAgICAgICAgICAgICAgICAgICAgICAgICAgIC AgICAgICAgICAgICAgICAgICAgICAgICAgICAgICAg DQogICAgICAgICAgICAgICAgICAgICAgICAgICAgICAgICAgICAgICAgICAgICAgICAgICAgICAgICAg ICAgICAgICAgICAgICAgICAgICAgICAgICAgICAgICAgICAgICAgICAgDQogICAgICAgICAgICAgICAg ICAgICAgICAgICAgICAgICAgICAgICAgICAgICAgIC AgICAgICAgICAgICAgICAgICAgICAgICAgICAgICAgICAgICAgICAgICAgICAgICAgICAgDQogICAgIC AgICAgICAgICAgICAgICAgICAgICAgICAgICAgICAgICAgICAgICAgICAgICAgICAgICAgICAgICAgIC AgICAgICAgICAgICAgICAgICAgICAgICAgICAgICAg MFIzJNs4G9dkPMIvKUTtXM0zMVx2Sa0+VLfBEtHlGMF1kvSyeD1PRG9ho3DcXFjaLVUtx1QmKTy2JE1W KFOhHLirLC5IGZmbpj4AJOClBQYsyPRHm3waJeVaJKL5WRTjWapiHZ4OOWXbN5snnqYbALXaTTUZPNue JPBUFV9FEsMiV0RpcG18NVVQLf0+DQplbmRvYmoNCj W3XJCbz9YeEUc4JV8WCHBmCnuab6DmKrspHOHIBSrjWH9NLVW0JGP9ALAlWz5RMVRiF401bmNgRY7BJs 9HSrQsEF6bdq8WBgsuIEJsIiwXYsb8BJzuHB3EtGUpADzNWBSgOMMxBY3aAyuiY5Ris6ArqzUzFSLBti 8kZBFySLWZWtFmhAN7YoU2QzXhIgGgPAH2TauqIA1v UGsxHX5AKZU2PLydQQZaUGDqD8rAMqNyBSrxNGQulBvbQJ0NMyQfG0BesjYawKBcYpOnJMUVNe3+DQpl bxWxBrqUJpP5CIIvz2ZeMVu6MT5SJJEiHEzyPP3ACWEffL5kAZxfIL0XMhVdKRIaQIFJVmVpW34zqYLv FVj8Q9BqNyJnHJOeOnqxPMNsPOchIhRxZAImWlCyYA ogID4+ID4+ZIpdUB0PGRzgaeRnWQTcWx0SHMGlZQTyWQ8tHSQjDYHhK4G6hGpcNTLBBpEfR4issqesAB 8aNDJpL915vSzmanPyHFX6DGNfEo9VDGMfUYW5SGAbbPIiZtMuBLURRWetPO2SgLUkDEB5aJ5oXThpTS BaFRUfA7tYOmGxhHrfLF18zIzcfvSivEFoDXz+Pg0K KR3qh4MuSSt0ppSeHStySSSeCCkgLASaGVCpBNSoFTH2MWS0VVFREwJfPHOvEXPdLYlyOCEgHOLpve5V BFIwQTFaQYRvYiCwWZJvHGAuIPknSNUjPTDsVGl4UMZwPLXeFI0MXwDbJRPmWZGyUMotJFWxUWJhkz1K MDAwMDAwMzMyOSAwMDAwMCBuDQowMDAwMDAzNTMzID JgALPyXZ6GIhXxDTXwRUR4FofgZSOgCEXlfn2PCRAwLJPqDHR0EJIiXKHxXREwWPftQYWjEGJ2QbX2TD JgWIGoWU0SDiBtUGEmDRB7FIKtEPShZTXdfv8YXVTrWSBmUdAoUlMyZWKsZEEvXCtiYRNxTBE1HAa0GS XfMOMpTW7KGrVuNWUiRQlbWNWmXPKrYLHmmv4TDBEe LWDjYPU9YuRaPPBgXUFbEOviMSIuBKM8QsE9NRJvGFSiSW0WLaFqJDHaFTr7QbrgEWEhQNRxip1VBTWb NHGmJFksDvWoVLAvQKGxOEnoOWWcFNWaRyo3LAGcFNAqTW2ZQxPwBXFsVKD7PIVjLYOrYMIexk4DIYXa ZNMdKBK4MNTsZYNuRYXmQCmwGCNeHOL6CPS6TTJcCC WsEQ5TIpDvJDCgAbCjXTkiCLRlRIRuvf8CPTOyOPFwOKH8LcOdSIInPFEqRBqtFVQpQWTaFJWfCOSfQQ VjWO9CTnAlLYRvLjZyKJGmSKUjVQJqrb3DIFYtRDWaHLckKTJvZCMiDLQpRIolGYSiFJPlXKd7ASJlYH ZxLX2CLkBrIXUkCjLeMEumDWBzTNWiqs8TVUPlAMCw ReU8VqQbUIWoMWIuKDf5zcAqqZXkIIs1IB8FZ7IeydXeKfWVSs6Fb239EKH0HVViNx6TV3sdJu9sYMNp ELXNGv1VYUe7CsFxPFB1HvG0KAwqIuF7MfZyFRd3DMIdU3OkDXGoZtu+UFsdC3Y4Qmn4QDKpFNRlSyju MhNnVjEcOLXqPWDqLDYcNX5xWNOYIt1+DWdljGXebCtaTNIWBoPkRdCgZMquYXLRIy0P ID Date Data Source [id number] 03/26/2021 05:02:00 AM EDT [facility] Name Value Range Interpretation Code Description Data Arabella rce(s) Supporting Document(s) Blood Urea Nitrogen 5 mg/dl 7-18 Below low normal [facility] Creatinine 0.79 mg/dl 0.51-0.95 Normal (applies to non-numeric resul ts) [facility] N-Acetylcysteine (NAC) and Metamizole em ve the potential to falselydepress Creatinine results. Baseline values before medication adminstration are recommended. Patients undergoing treatment with phenindione will have falselydepressed results. Patients on phenindione therapy should be tested with an alternativeCREA method.Toxic levels of acetaminophen may lead to falsely depressed results forpatient samples. Glomerular Filtration Rate 81.00 mL/min/1.73m2 [facility] GFR Reference Ranges:Normal Function or Mild Renal [...] of Health and the National KidneyFoundation. The [place] method used in calculating this result is traceable to IDVT standards. Glucose 82 mg/dl 70-110 Normal (applies to non-numeric resul ts) [facility] Sulfasalazine has the potential to false ly depress Glucose results. Sulfapyridine has the potential to falsely elevate Glucose results. Baseline values before medication administration are recommended. Calcium 8.0 mg/dl 8.5-10.1 Below low normal [facility] Sodium 140 mEq/L 136-145 Normal (applies to non-numeric resul ts) [facility] Potassium 3.6 mEq/L 3.5-5.1 Normal (applies to non-numeric resul ts) [facility] Chloride 110.0 mEq/L 98.0-107.0 Above high normal [facility] Anion Gap 6.7 [facility] Carbon Dioxide 26.9 mMol/L 21.0-32.0 Normal (applies to non-numeric results) [facility] The above 10 analytes were performed by [facility] [id number] [facility], ,[place] [id number] ID Date Data Source [id number] 03/26/2021 05:02:00 AM EDT [facility] Name Value Range Interpretation Code Description Data Arabella rce(s) Supporting Document(s) Magnesium 1.8 mg/dl 1.6-2.6 Normal (applies to non-numeric resul ts) [facility] The above 1 analytes were performed by [facility] [id number] [facility], ,[place] [address] ID Date Data Source [id number] 03/26/2021 04:45:00 AM EDT [facility] Name Value Range Interpretation Code Description Data Arabella rce(s) Supporting Document(s) WBC 4.62 x1000/ul 4.80-10.00 Below low normal [facility] RBC 3.66 x1Mil/ul 4.20-5.40 Below low normal [facility] Hemoglobin 9.4 g/dl 12.0-16.0 Below low normal [facility] Hematocrit 30.0 % 37.0-47.0 Below low normal [facility] MCV 82.0 fL 81.0-99.0 Normal (applies to non-numeric resul ts) [facility] MCH 25.7 pg 27.0-31.0 Below low normal [facility] MCHC 31.3 g/dl 32.2-37.0 Below low normal [facility] RDW 15.9 % 11.5-14.5 Above high normal [facility] Platelet Count 232 x1000/ul 130-400 Normal (applies to non-numeric results) [facility] MPV 10.8 fL 9.4-12.4 Normal (applies to non-numeric resul ts) [facility] Nucleated RBCs 0.00 % 0.00-0.20 Normal (applies to non-numeric r esults) [facility] Abs. Nucleated RBCs 0.00 x1000/ul 0.00-0.02 Normal (appl ies to non-numeric results) [facility] The above 12 analytes were performed by [facility] [id number], ,[place] [address] ID Date Data Source [id number] 03/26/2021 12:22:38 AM EDT [facility] Name Value Range Interpretation Code Description Data Arabella rce(s) Supporting Document(s) Nursing Note [facility] KWJRQr6oIsWEDsAw77/KYHxbSRXjn3PsWMbpZXh5DOfeVDOjG5VfADS7hZ0oQNT0KOpZHjZxNiYxSKI0 lbm [file] HfZzTxVO2LLi6WHqP0DWB0oTHeBd3CFcjkOW2LJTRUL4FUOp== ID Date Data Source [id number] 03/26/2021 12:17:58 AM EDT [facility] Name Value Range Interpretation Code Description Data Arabella rce(s) Supporting Document(s) Care Plan [facility] FZIOTc2aEeXXAcCj06/EGKtdYTAhb1KlXUhjVVt6UOpxFLOsZ6LdQAX2jE5cULO3MBtFFtJcUjAbJZC8 lbm UrUwdLQjXvDSZiSjzIVrXuNSqyVqrikRCfCS0NjQI8IOMtL51mIKOcORYtH9NrDQM1LRh+Wj0JFIRzkT ScJI7EBltL7LlGs9f3WN63bx6ZkoJqyW5CEFZ77rK5wy9xFp+iv6yaeHCS49ORGqZLuy7qYZB9l1oJTa y9tZ4XXwB+M7X545GETgr5vEqEQzVrm/J//VWnkvUm 6Pju1GPHFRjPLt/BPOUXukB4a9U/FmG6RlcntSHYAdjcObviE1keGwlIih4bZoLEGac3FmoYMX9jWm8h gZ243NUKU3ax1T1m41LplzDYUhoyUqpm//c/67W6h6pEuENis2ywJgDygyrcjQsjuEHqxccwaocyM0kw nnk2dovrk1tJG+nbxu41Ti/iux3M0H/e4QYMRnJDtn 0qfLFDR1nGuzLEz2d8RByvAdtqQX7yMIWF+7dYGSEgA7sk4XFCTHIgSTjEYu9dpHfPVjYngiuFLsOVxb ousoZ/Vs2Lu/4nPMj81huQSoEhnQ7Qi1Q/J+Jackson+jrRxpGB9BHtOOg9uUfYsn2ztnwKVdha+Q+jMTtfFl zva1mGac79ZGefgQlh99DHJUcLIRX8CaDG0/Ztf9Q9 3TqRJBV7ydqBDzZqy8bcVWUcPFwciuCPUqHoETsWg/X2DTWEip8B6UVW6ExEO8htjZiQb6r/tvdEy8Yq 3m/V+DWPN+NOhKLcgofqmx8PwfruEp29akymeVS5mownAj3Dt8fav3DDxL/d5ZRQ+uXOr/K+Xm27bL0T 8qbh13a85MG/Pe4uaaz3khemWFprldBrJwrizuz6TS [file] SqCDNbOBPbQuAtOvk7KsE9UZDgEMHbQiHzUW3YAm1TNwW4JAY8wIBbPn2QOIc8Sr9AAQLPO5PSVr== ID Date Data Source [id number] 03/25/2021 07:13:18 PM EDT [facility] Name Value Range Interpretation Code Description Data Arabella rce(s) Supporting Document(s) Care Plan [facility] TDCPZg6ySkWVGbJk09/DEQruDJQgt9DjVMadIWy8JKmoWKOtQ7IrAYT3sO6lDBF5DRhWMrTeKuMaIRB7 lbm [file] health insurance adjuster/VbYra/47QpUM3zdce5okZWJhKVO6THjMov3w9sEtoyr/BvRC0+u5ap52uq6zDs5nq3cB/DPMscSF [file] XSANCj4+CHzwnFNyoEvlIXYCJfLwBLK2FMauFQKNAv9K ID Date Data Source [id number] 03/25/2021 07:12:23 PM EDT [facility] Name Value Range Interpretation Code Description Data Arabella rce(s) Supporting Document(s) Nursing Note [facility] NAKLRc3kMcYPYqAg88/SMSzhHFCjp6WaMEbbDOx7BPotUCYqU1QwVCK3uN2dGXG5AArFPlRcQrYyZIE6 lbm JhQjtPShTyMOWlYihMZjLcWCbbPlfigISjRI5AhQV4LFOjW00yTFLbZONgD9EqMQZhPtE+Of8LIHKobP AnJU8UBhfM9IfymuN9FM1O0y/LC5bvcuc4bF+EkLiUSkgUSqPzcjgPKdmGQG+kCQV+/dmNvUm+wZo27R ZB+4SF8UcOn/vGuyEKf1+g3mdgBDT/y6+uNPTxlB4+ aRZ3dBa6lc7eJzHijNfgBDRyC/2rQq/WwPeIc9TZ5lq71AffVMsTlW5yYwgYES52kb8s25i1Jh3L9MyW be3gxqTVl+F2Siz7fd74oJy9ppixC/bUopVSdX7ZtqpjMnAhametzC0O6SRnfo8ZvKLhzXPXGHKHNnUs DdvTf2aW3frjQGbLor7U80xPNQas+gzFO6KZ+jZEGO aHBMXllEq3YsDGw3Zdh+9pUGwiSFHVROfXd5GUn2j8SgF57qGOWErXkLqohFIXOPmcRSaO3iJnN4moyV JL8G1Fs4rAmJcJvOcxg36WzzefMsID04Luioj7S7eS4UKXPpw34ltGaQCbCgeGFa71Uu/2I5QxdABo2c I2c8Nt1ILcMpKjc0q0e1+/vuXW+iT7JEhOsdVJAyVx nUY4xmBbe6sExOcFXtl1i/OPhWowqP1kbkPuO0ILgVD/aPD6/sNushe6Erej08XiciGGQNgLsK31UQwT RmZeg5mN8F2r/vQddN3YKnrOv2QtZD1p76y52oGCaRHKr5o9p83R50wfa+gvkd+KfD0PeHfln2BtBCtk f2G/BF1g91I737BcGEpuo3e7Pu3qTfzPL8vdZd/Clau [file] aaJZVHRm0L ID Date Data Source [id number] 03/25/2021 05:38:02 PM EDT [facility] Name Value Range Interpretation Code Description Data Arabella rce(s) Supporting Document(s) Progress Notes [facility] HMOVSb2hGfVTNhBk47/MRHspHYJoc8WnSFokTSu3LUtxTKMnI1IeOTZ8bB0vATR4VPaYCqYyOcFrCNX7 lbm [file] ICAgICAgICAgICAgICAgICAgICAgICAgICAgICAgICAgICAgICAgICAgICAgICAgICAgICAgICAgICAg ICAgICAgICAgICAgICAgICAgICAgICAgICAgICAgIC AgDQogICAgICAgICAgICAgICAgICAgICAgICAgICAgICAgICAgICAgICAgICAgICAgICAgICAgICAgIC AgICAgICAgICAgICAgICAgICAgICAgICAgICAgICAgICAgICAgICAgICAgDQogICAgICAgICAgICAgIC AgICAgICAgICAgICAgICAgICAgICAgICAgICAgICAg ICAgICAgICAgICAgICAgICAgICAgICAgICAgICAgICAgICAgICAgICAgICAgICAgICAgICAgDQogICAg ICAgICAgICAgICAgICAgICAgICAgICAgICAgICAgICAgICAgICAgICAgICAgICAgICAgICAgICAgICAg ICAgICAgICAgICAgICAgICAgICAgICAgICAgICAgIC AgICAgDQogICAgICAgICAgICAgICAgICAgICAgICAgICAgICAgICAgICAgICAgICAgICAgICAgICAgIC AgICAgICAgICAgICAgICAgICAgICAgICAgICAgICAgICAgICAgICAgICAgICAgDQogICAgICAgICAgIC AgICAgICAgICAgICAgICAgICAgICAgICAgICAgICAg ICAgICAgICAgICAgICAgICAgICAgICAgICAgICAgICAgICAgICAgICAgICAgICAgICAgICAgICAgDQog ICAgICAgICAgICAgICAgICAgICAgICAgICAgICAgICAgICAgICAgICAgICAgICAgICAgICAgICAgICAg ICAgICAgICAgICAgICAgICAgICAgICAgICAgICAgIC AgICAgICAgDQogICAgICAgICAgICAgICAgICAgICAgICAgICAgICAgICAgICAgICAgICAgICAgICAgIC AgICAgICAgICAgICAgICAgICAgICAgICAgICAgICAgICAgICAgICAgICAgICAgICAgDQogICAgICAgIC AgICAgICAgICAgICAgICAgICAgICAgICAgICAgICAg ICAgICAgICAgICAgICAgICAgICAgICAgICAgICAgICAgICAgICAgICAgICAgICAgICAgICAgICAgICAg DQogICAgICAgICAgICAgICAgICAgICAgICAgICAgICAgICAgICAgICAgICAgICAgICAgICAgICAgICAg ICAgICAgICAgICAgICAgICAgICAgICAgICAgICAgIC WkGOHtCOVzCHQiXEa2O4vjZRQjSHIoJK1iILz6Ed3+LRjKAmEuSUZ9puYnrQ4GKP2ie6FnWDauJPDru1 CgKRe8PS3NCYRvZVmzCZ1TCVyvcz4ALCVfAIKxfMXNo3vmAtAcHUG3KRYtNrmpCG9PZBXhV4vtxgEzLZ MnJZTKEGzsCEAYLOoyAXPJUJBkXRNpYhQgOEazLT9K i3JbkSV3ZUr+Pq8WXO5dp6JoJGitECAgUY6lsa8POLjQNqZuH4HloiM9BHZaLWIqLs8WAMLqJEMhiTU0 IQQnWYSMCgNxO1YkhS04CLWPOq1+LYorhoHzAyiANoEqBQSts4LmUPo3FZ7SFVOkDMi4dMMmYXOsI7Hg b7CdFw53KNMmMtqkQDV5roWpERBRo38vh55eFY3FKI I6NVbqAYydGcStSEPwJRykIWTPCNyBHfEcV4Mft8MoWqZ3FOViNcSlFPcbTRBqLiT8KY48uGebBF3SRY XsAXGhQW12DND1LDAmHf1VRn0IBnIsFG9cwu2AGYCfBFKcHplYXrn3RTevFZ1QqWReW8MkdGKkm7xQEb MyA6LUHSD3IWVePn4SNTVcMeBrTTBwLBqkOM6dLIOq NIDZoWlzrsF2CB9QFH5prqLqSV3PXtOqEt2cJp7QWkXtD6VfH1RcCWCbPCIZPIrbBH9UVYtvAA2uGH3C o8AUiWUucI6eis1DEBNkOIFuNraxxj9VJhmuV5M7uTnbFMRqWlauBPXAGPtgCQ3IMPOgFDZ9WZYsMEAi QRRYHyXiF94tNJ6KS1Saw23aJbS5YIYiJgKmKEpwHR 35jObhnbDarXXenCqcLR4XYv6+DAtrdtBxModDFewkHTCSYjXtSFDPZyTrTZPeWOEuHWEmIcJ1YlNhXh 1PTYOtPIHaEOJqJfGaMJLoEGUwKUklGFAmPKR3WBk7VEAuGHEnJO0DDeZhQHOpAVS5MIjpTVPtYLMjui 2DVPTjBTSrHMQ6CuSfEVKlKPZwVMxqMDMnMEJdBrEe ISVoJNSyAF5WOaHlPGYzKIM0QVXnGMQdPRYhfm1ZVGJtRRQiZVH0ELVaXYLwHMRsUKhgREWcUGD9Htuu KEMtZOPsTB9UHbIzVSLlURn4WSyoTUPsCDEatf8MSQUwIUUqMRIcChGjSKYzEFQeROaxXBKiJYJ0ISI9 KDVtZBLeGX1EOcZlWEEfWDTdZxGgAAFyNAKslo7QYR ExLROvXDl0RiBaPKDrOTStVHabGVIlSNCsJYx4RZPgNAErOX0VOpUtADNyOZDwEgIkQCWcHZCsqe9KAX TjRNPwDkNuHjVoVJMtAFCbNJteOFMqHMYiQKOqDSCkWXEmNP2LApAeNCYgTTP4TNBtBVCjPJVamf9DFJ FoVKXnDYG7TaCsVTPlAMVlWKpiROSrAEU2Fvu6DAJn PQJfOQ1CWiPuZGYcIfU7GBuxMDQhJMTndi0TAZBhOEGuWIkjBlJaIDGoNKSgXOdaTDOoSGQ9UVyyVUDq PRDnEC9YVkOnYZNtMzJ6ITYkGBUnQVTjan4YIMYxDFLqVtJyCiMyEMRyRJVdCCamKDPmJES2Woo7ERVw AYRyVL3OYlNtGCIuPvetTureRLLqZTBdkl2QTBRmTG KlXZIyUeCnZMUrIUGxEPphTKDtUIC5YCu4HNXiBLSjJV2LJwJtBFHfOIO5DPTzELXiXRMsfo9JIMBhDW T0LqDcNOZkIYCfWBUoSSzgKMToDLMcOKB8QYUkFOZlQT7WApRdCWDwFRT3UKByWPPoZXHvfu9YNVQrOC U3YtctROBcPNMcLNMbMTpbCCCsEWRmGfcfALDzTNKh UH9ZSfBqEYFyFVR9FerpVTXsPSBovv3UERVuXUX7VYY0VVFfPMCkGYIcJPsuRHQoLFC0CfM7HCTmQTBc OR6UXnIdXXLdPGAlXfGjIOChUMBqlh5CGLYsRZJ5PhW8RvTtQBYgVDWiVPpwAUUlEBA2Weu3LTEoSHGi UC8XSkDjNSqdGCBLBbf3VGzfT2s6LZR6Rz2IM0Pao8 RnPMWoNZIKFErlMN5rmvUzILSgIh3ED7vWAjgiWWq3PAN7K4V5DWD1P8RdZWC9MHJ8PJMkYXPjByN2QP 8hSQHkLea8MObiACBcFms0VrP1VcxrRhotAaJ0TENjKyu5FuYhTE5XRl2HEtY0VJR3vGFuVe3PYAS7PW DQFrExUH8FNYm= ID Date Data Source [id number] 03/25/2021 03:02:31 PM EDT [facility] Name Value Range Interpretation Code Description Data Arabella rce(s) Supporting Document(s) Anesthesia Postprocedure Evaluation [facility] TEALSb6kZfFNEbKt91/IYMypPKFzo2XmLZwyLUo1DUaoQMXyG6AyJUQ2uN0xLMA3XEnYRzEfIiJgQES0 lbm [file] MDAyMzQxMCAwMDAwMCBuDQowMDAwMDIzNTgxIDAwMD ZlXJ9EFmJvHFyhHFRFBbs9SXbnV2d5VGPdOA0OC3Jka6ZsStmrZTABGTvuDX4elqYsSNVdIn7BA7qCNx mfU5LaNVY0IBhtQVA1ZTSkXUPsTTL4HjK6XtMzShToPp0pGWNrP9V3JLh3XNV9Mkt9HjLdQdGxAERaKX p7PuGdI1UmPoFlJO9PRo8MLmG2DXC3rGUiKy5XUjJ7KvZSSbJxYD6PBIn= ID Date Data Source [id number] 03/25/2021 10:57:36 AM EDT [facility] Name Value Range Interpretation Code Description Data Arabella rce(s) Supporting Document(s) Nursing Note [facility] ENEOVh2pLiJUMcWf88/XQFryNOMlu8YsNOtwHVv6MLhqJEDjN6JzCSP7hF2nNRZ0VIjNLoNjPkIkQAT0 lbm [file] WkNmmzWJQgIxWlOXT1GLO+IO3cQOu+Yy6Jk1HcjjE3ihXiUHtpGGpdEr3CSJFZS5XHOv== ID Date Data Source [id number] 03/25/2021 10:48:41 AM EDT [facility] Name Value Range Interpretation Code Description Data Arabella rce(s) Supporting Document(s) Nursing Note [facility] IRYUPe6aOhLUSyQz72/NAEmjHJUtx7AaFCrjEZg3PCbpIDCnN7DnOXC0jR2rJYO8KUxQDrGoWvIsLSH4 lbm [file] 5IFrZ5XZD4rTSyWc0IQhR5FDXTSwSrAS2AVXx= ID Date Data Source [id number] 03/25/2021 10:42:08 AM EDT [facility] Name Value Range Interpretation Code Description Data Arabella rce(s) Supporting Document(s) Procedures [facility] DIIUKx8wPnSKZgNd13/ZWDofHZYru5EtVGhvWGt6GYdxYXOfV0WtJSC2nF6jLXD0KImOYsGmXzEuZWN9 lbm [file] QtNkM4O9NmXTCgRiAiMS2PZe2SWkF9SDK3oASfGg8YXpZ6GzYJBoLdMV0RHPw= ID Date Data Source [id number] 03/25/2021 10:11:38 AM EDT [facility] Name Value Range Interpretation Code Description Data Arabella rce(s) Supporting Document(s) Anesthesia Preprocedure Evaluation [facility] EDGDSl2mXvDUFoKl37/QGLudCWKqz3VqKMwkXMz9GBxfEIXqV8UcXZG8nP8aKPF2XElKUqLrHyGoIMY2 lbm [file] WlIV6GEv5WPuP8OZZ2cQDyQg0PQbZaIlfOUkNsLN9RWBc= ID Date Data Source [id number] 03/25/2021 09:23:31 AM EDT [facility] Name Value Range Interpretation Code Description Data Arabella rce(s) Supporting Document(s) Perioperative Nursing Note [facility] SOJPOb9nNoORZjLb17/KUTlcLBGsn2MaBGqsDBh7XDarSGHxN8QmEOA8eV5uQIH3HCrSOiDsAuEdUPF6 lbm WqSmkWNjKaBFJgWhaLSiOsXFedNjxuxRHyOO6GpGC7ZQDuA56iCKGtMYMaL1MgMLblRK5+RJajGBS2ip AukK9IYAFASAhq90GFeUaaC+aKPq2ds0l5PlDrAdTVdDsuV1kFJnrhyTzD8aAq03M9vdnmEAwzedCmI4 s0s+rFiis7PpF/E5rUFGcaCi7Yi3sSlbiTmttFnYAr pea8DkraGAYLyM4Mesl31FZtHsiTNQ/5gBMNwAfRNazBYJDLxzLM8YuS+fVKOMM6GfPGYB6xUeyummLV 9ZAyY7L2he67NK+svKy64MYG0k/XtwSXggZJpkwmrY5HTulrUveFgGLaTQRNhwtpuqASoJuFBykfpc0s 9sHA2Y4gTvbgoFVV6JDINfIgFq3vnEvfzsLJhKl2w0 XCZaje01B8i7AqF5hmhPdh5qSiUCdLeY8XFdfI7tsqSIel/dFUo+kAlByVymcrUMlQdLTcVyiUDJruQS zCy+Af2beVJE15EnD8CsZOPgDMe21Nd62Av4mmFMoUjXqsKnROrnEcy3MI0nr7+E0NhGKaEAtrtu+t6H CcrLZpNHzauEKpdcN7/xqnt80AwiTEq8p0rMxDlTHQ aAyczJC6tFU3ramQTk5x+gvzhKsr2pUHd7+LM74eNJqL7aJ64yboyQHrtqOWZwyTTE6uRV6F39K9UH9x UVn6Ps2Wu189WdSekijMxpwAUL8d4kOT+a2Lsd72n0L+5F0IEQB78f/xKRlrZXU0X8vxHO/Jpfpd/inside sales manager [file] 9GDQo= ID Date Data Source [id number] 03/25/2021 07:03:25 AM EDT [facility] Name Value Range Interpretation Code Description Data Arabella rce(s) Supporting Document(s) Nursing Note [facility] IBLORc9xXgLUZnKd76/GLWdrMXVlz7ZfINwnFSp7MZikZQEkP6VdUDJ8rB5tDQZ1VBoAPkBsBiFbLME7 lbm [file] health insurance adjuster/VbYra/43DjYI1hekd3pqSAUvOKY1SWzUms1n1xUihgx/BvRC0+e7kv67vp4wUs7bb5xC/DPMscSF [file] 0K ID Date Data Source [id number] 03/25/2021 05:44:00 AM EDT [facility] Name Value Range Interpretation Code Description Data Arabella rce(s) Supporting Document(s) Blood Urea Nitrogen 6 mg/dl 7-18 Below low normal [facility] Creatinine 0.72 mg/dl 0.51-0.95 Normal (applies to non-numeric resul ts) [facility] N-Acetylcysteine (NAC) and Metamizole em ve the potential to falselydepress Creatinine results. Baseline values before medication adminstration are recommended. Patients undergoing treatment with phenindione will have falselydepressed results. Patients on phenindione therapy should be tested with an alternativeCREA method.Toxic levels of acetaminophen may lead to falsely depressed results forpatient samples. Glomerular Filtration Rate >90.00 mL/min/1.73m2 [facility] GFR Reference Ranges:Normal Function or Mild Renal [...] of Health and the National KidneyFoundation. The [place] method used in calculating this result is traceable to IDMS standards. Glucose 92 mg/dl 70-110 Normal (applies to non-numeric resul ts) [facility] Sulfasalazine has the potential to false ly depress Glucose results. Sulfapyridine has the potential to falsely elevate Glucose results. Baseline values before medication administration are recommended. Calcium 7.8 mg/dl 8.5-10.1 Below low normal [facility] Sodium 140 mEq/L 136-145 Normal (applies to non-numeric resul ts) [facility] Potassium 3.4 mEq/L 3.5-5.1 Below low normal [facility] Chloride 110.0 mEq/L 98.0-107.0 Above high normal [facility] Anion Gap 8.7 [facility] Carbon Dioxide 24.7 mMol/L 21.0-32.0 Normal (applies to non-numeric results) [facility] The above 10 analytes were performed by [facility] [id number], ,[place] [address] ID Date Data Source [id number] 03/25/2021 04:56:00 AM EDT [facility] Name Value Range Interpretation Code Description Data Arabella rce(s) Supporting Document(s) WBC 4.87 x1000/ul 4.80-10.00 Normal (applies to non-numeric re sults) [facility] RBC 3.54 x1Mil/ul 4.20-5.40 Below low normal [facility] Hemoglobin 9.0 g/dl 12.0-16.0 Below low normal [facility] Hematocrit 30.0 % 37.0-47.0 Below low normal [facility] MCV 84.7 fL 81.0-99.0 Normal (applies to non-numeric resul ts) [facility] MCH 25.4 pg 27.0-31.0 Below low normal [facility] MCHC 30.0 g/dl 32.2-37.0 Below low normal [facility] RDW 15.9 % 11.5-14.5 Above high normal [facility] Platelet Count 201 x1000/ul 130-400 Normal (applies to non-numeric results) [facility] MPV 11.1 fL 9.4-12.4 Normal (applies to non-numeric resul ts) [facility] Neutrophils 50.5 % 40.0-74.0 Normal (applies to non-numeric resu lts) [facility] Lymphocytes 35.7 % 19.0-48.0 Normal (applies to non-numeric resu lts) [facility] Monocytes 10.7 % 3.4-9.0 Above high normal [facility] Eosinophils 2.1 % 0.0-7.0 Normal (applies to non-numeric resu lts) [facility] Basophils 0.8 % 0.0-2.0 Normal (applies to non-numeric resul ts) [facility] Immature Granulocytes 0.2 % 0.0-0.5 Normal (applies to non-nu meric results) [facility] Nucleated RBCs 0.00 % 0.00-0.20 Normal (applies to non-numeric r esults) [facility] Abs. Neutrophils 2.46 x1000/ul 1.92-8.31 Normal (applies to non-numeric results) [facility] Abs. Lymphocyte 1.74 x1000/ul 1.20-3.70 Normal (applies to non-n umeric results) [facility] Abs. Monocytes 0.52 x1000/ul 0.14-0.97 Normal (applies to non-nu meric results) [facility] Abs. Eosinophils 0.10 x1000/ul 0.00-0.76 Normal (applie s to non-numeric results) [facility] Abs. Basophils 0.04 x1000/ul 0.00-0.22 Normal (applies to non-n umeric results) [facility] Abs. Immature Gran. 0.01 x1000/ul 0.00-0.02 Normal (appl ies to non-numeric results) [facility] Abs. Nucleated RBCs 0.00 x1000/ul 0.00-0.02 Normal (appl ies to non-numeric results) [facility] The above 24 analytes were performed by [facility] [id number], ,[place] [address] ID Date Data Source [id number] 03/25/2021 03:48:12 AM EDT [facility] Name Value Range Interpretation Code Description Data Arabella rce(s) Supporting Document(s) Care Plan [facility] XJNCRm1cWkGTLrKh84/JAWfkUZAny8KjAZqoOIc7FTlfRYNiR6JmCXO0mV0aWTE5EJtKGhYeBqAeUZR7 lbm [file] GzLFXtGVN2FNOpFHE7WyDqKzIlLTBaSeM6Gx2bWD ANCj4+MVkzbTUiuGjsPYJMZqZ9KjIqMFqdEVGNMl4Q ID Date Data Source [id number] 03/24/2021 06:47:36 PM EDT [facility] Name Value Range Interpretation Code Description Data Arabella rce(s) Supporting Document(s) Progress Notes [facility] TGNTJs1xWmNNXkIo98/HIYshOAIft3FkBMdiYAy9AKqvPZUmJ3ZgUKL0aZ9eEXX2LTuTYyKiTvUcEJN4 lbm [file] vT0CjcNlOHUKe2pwc+IOxXfu/WlxCT0wu09g/O [file] == ID Date Data Source [id number] 03/24/2021 06:29:29 PM EDT [facility] Name Value Range Interpretation Code Description Data Arabella rce(s) Supporting Document(s) Nursing Note [facility] HRUEDv4zNzABTvRu59/MUBtzISNzd6ZsFUbxVQv2UEaiTPIiO7GeABP4zY0aQIH8WDgHYuGtJzTpVVQ7 lbm [file] M9XIQ1WUQeWZKbVgHnVH7INv7HWqP2TET5sTNkAo6SXeQyCECBHnTpLZ9JXSu= ID Date Data Source [id number] 03/24/2021 04:19:00 PM EDT [facility] Patient: SIENNA FOSTER Observation [facility].VisitID: [id number] [place] [address] [phone], FRegistration Date/Time: 03/22/2021 13:25 Weight:72.1 kg (S). [...] rce(s) Supporting Document(s) ID Date Data Source [id number] 03/24/2021 04:11:33 PM EDT [facility] Name Value Range Interpretation Code Description Data Arabella rce(s) Supporting Document(s) Progress Notes [facility] NTSSYa1xDsURCuAx09/KCUdiRAAkg6JmBQroSPj7DTjbFXXsC2PeWVP7dC6mWXY4VGrVOhEbSwYnOYM0 lbm [file] OmRvCU3LDUw= ID Date Data Source [id number] 03/24/2021 02:38:34 PM EDT [facility] Name Value Range Interpretation Code Description Data Arabella rce(s) Supporting Document(s) Progress Notes [facility] IFZKPq1zIxGROwKc08/ZVUtlHJHux7GbKLadFLe6LTkeAUTpM4RhCJE0yE8yVCO7KFsMQgUxAsWvXXK2 lbm [file] RxaF1RD1YIITbKGXWVQr0CTRXgM94SRSKG+2VoVC48 HOA3BA8K+sNroShFReOrMWrnZUE8pW+4fF6XzkUOgMpSRgtrlYuyE+yHWwJFHbRSV+UqW+aeBT4A/oP6 wxXOG41XhgE9/o/gML7ZPEP3q7a/vXP6VEsqCMfH5XtcR9e/JH7fcGm77wVtBxpPiRJG2dR37mT4NIsF qrRSZ1Hq5kUZBAsiL/uceBrtOgT/r8N3FT68PLKl6s pWwzawv+sI+W7b8o+MIp9ktq+YdiyGyD1q44bHU9P01Wo+sPnbf95X60fyyO5A0KVQEcCdjisA/xLUec /7Ob9Cc1CkKWEaLcTo8aJLqcMV4b3wtNr3PueDmHA8C4/Gmg0oIn74N2m+obZ3qI7LJDjfvNo8YQbYqE LE9wLtolEO8nVshPjR8tTQf47Zk32cxy+kPgUcwXpp lZaAX2abWuYku178yn9gUGQ8Kk0KRMExKqHL06YF3v07di+h+9Gn76SoTx9o1hyiqcAuV4KvWLN4roM6 j+z+6qidAr/I7Hx7OYNay6Ld6LxswB8K4nMmbSW+FKaL1El+M+FhTfxT1bAemfzdsDQ6gX4KgmzMW9qU qxncw+keYKHLRSmuluJvqMxVkyhfnDHafxtLnDuuQ9 2rwr90J6/Ph+/tTiYxpJp8v9J8tJRhqACsREk1WOjuTX6bA/99kIZnZ+Q1ZmZNCKTPX85i43BNTzR1HA aaMzffIslLc0XpsJnuCuCGAhKrCCMc1UI1lUi9k+g6Th9rmrI7Im6oQlLf7ZXQtcmCiGdu3Yd91gfRXK utBre61YVVBH4m2KndX3qtc/n8nHtaLG392DNCWD76 SnSRcFxXn1yTzuniZSD4eMfpA+w9F8QE7oiT+uPtRIye4hh9rZON1JCOO/C9/hIaLFWSLv+n8qpc2SVD eo5G241o8fwoYogj+XjoDFVXQCd3o5F5ms4npf+lDrD/xkjNzI/2V9KDLxUalxkHF6c35ryKnKfPnZoQ xcIbJgm5HtW22Fnb0PwWK61sgwQcq4v63+JdnrYH+7 wXUX3vSgxTnt3qIIZWJjm3Z3t0lU/4ByAt/y2bH+LdSN39sW081xQ52EXSzX/zN28JunRcdalW19zU95 7UQlCeo4XqbQjHi97Fp1w+U8jvxwruqja7zN0veNF6zZfReHrdDurhNvWMmCTc4d//nklFL0Gr19Wxm/ +po89Fvpo3UHUct+5toiZWnbP9WZTxuJaAKgzpf9/v BIm//6LBZLd2IzRp8VEG2P7uG95IVtA6okK8LG3YOrqTRtVtWb2Hu5zMCl2utQmzWY9BQiCw6lS/A/vp treasurer Dtvo91W/TI79vPkKbWxmkOeYTpx2hAPADaL7A85/LShdrW3YgyVYVP1YN8xmO2YjoUI5j248t2wXf3lG XxnWuhx+o1U7pyqAklKff467n6CEK2vKnP4Iw9EDL1 vpQnORWIWmOB05bYEH1fbljQ5yFngHumcW61ulSmPfyEMYB2G/uy0K+6iOILmbnL42LhF/SSnWKdw6Ks OfAeFhd98kn7z54Zr9kd0LI5kbXGXXck4vwLnbye68Q7yjKy/tO4qzM0qOxhMklQjuTPT7cCZEuNmBHM 0lZesAljNRdFbq84/pLVrM8r4Fe5HS11mFgyI1XQiU jAd9k4gVjPc4gH/rNylQVrFfRf3ZjGNtdjpArb5lGUWkf5jCkdMjB9u9bcJ7OFikaIqWBUwhiSb7tQ5E B3syt9jJ1Oop84UHKQzFIl0sIGfw8u9lUgOkOw0hlbp3micqdHyDrga7SS4cfId2dWRX54q5ZXlmJv8e XwjiZMsGHYZgw9wuSxSGSR/EwlUyZwLxgTwyu8XMjy 9DxnsCRkw+wpPcVshgg/ILGTXmF+fZwDMdRfhLYg2Od4pJzL2zq3I40dHghBmAvpMFlabGxCAeCVC/YV OGIbH4qAvILKv6zHhSTSN8VjLqtMRH7FoCJquIcj+skdN2cr5YJbuAIVmBIMlQvff1T/z9xBSyDZ9HF2 gLEhO7VAOAqjg+YYVVjaIGJA+NGNMPQvJBPxHENF13 [file] ICAgICAgICAgICAgICAgICAgICAgICAgICAgICAgICAgICAgICAgICAgICAgICAgICAgICAgICAgICAg ICAgICAgICAgICAgICAgICANCiAgICAgICAgICAgICAgICAgICAgICAgICAgICAgICAgICAgICAgICAg ICAgICAgICAgICAgICAgICAgICAgICAgICAgICAgIC AgICAgICAgICAgICAgICAgICAgICAgICAgICANCiAgICAgICAgICAgICAgICAgICAgICAgICAgICAgIC AgICAgICAgICAgICAgICAgICAgICAgICAgICAgICAgICAgICAgICAgICAgICAgICAgICAgICAgICAgIC AgICAgICAgICANCiAgICAgICAgICAgICAgICAgICAg ICAgICAgICAgICAgICAgICAgICAgICAgICAgICAgICAgICAgICAgICAgICAgICAgICAgICAgICAgICAg ICAgICAgICAgICAgICAgICAgICANCiAgICAgICAgICAgICAgICAgICAgICAgICAgICAgICAgICAgICAg ICAgICAgICAgICAgICAgICAgICAgICAgICAgICAgIC AgICAgICAgICAgICAgICAgICAgICAgICAgICAgICANCiAgICAgICAgICAgICAgICAgICAgICAgICAgIC AgICAgICAgICAgICAgICAgICAgICAgICAgICAgICAgICAgICAgICAgICAgICAgICAgICAgICAgICAgIC AgICAgICAgICAgICANCiAgICAgICAgICAgICAgICAg ICAgICAgICAgICAgICAgICAgICAgICAgICAgICAgICAgICAgICAgICAgICAgICAgICAgICAgICAgICAg ICAgICAgICAgICAgICAgICAgICAgICANCiAgICAgICAgICAgICAgICAgICAgICAgICAgICAgICAgICAg ICAgICAgICAgICAgICAgICAgICAgICAgICAgICAgIC AgICAgICAgICAgICAgICAgICAgICAgICAgICAgICAgICANCiAgICAgICAgICAgICAgICAgICAgICAgIC AgICAgICAgICAgICAgICAgICAgICAgICAgICAgICAgICAgICAgICAgICAgICAgICAgICAgICAgICAgIC AgICAgICAgICAgICAgICANCiAgICAgICAgICAgICAg ICAgICAgICAgICAgICAgICAgICAgICAgICAgICAgICAgICAgICAgICAgICAgICAgICAgICAgICAgICAg ICAgICAgICAgICAgICAgICAgICAgICAgICANCjw/sHYsT1mwdPVahpL6U5bpKt0CVp5DHM6fq6MxVIHu XNihrmNeQquGEdAhZNPwTgfRZva2OMsyGL9CcSLhW6 MnC0CqMNhcQW3YRKPsXDTfiASnIPLzEVWaSuF0LMHrOCqgLN9RtFNqHMhoBXMwOEDaDcTpNFHxRUJzJI KbYTThYWKTFT7PKoNuH3HnsR37HHOAMc4+MMmqwpYsAghFCbD3LUQzc3IcVZb5SG1REOEqYmznm9TxJW NoVDZQKWsfSC4MQOS8CCA1DBXhYp5HRKMdK322zuSq EC5GFd8ZIoIqUM0qvf5NPKHpJHZzLfaLDci7TMsmXN4LlMFpXThNgu2dpfZhpxHIc4WdhzHfxBDXbnte TV6mU4TvyLd4NKGMJUKDZK4vTWXjRD9iVv0vKOXcRNAmMnG9KMHULJ2IAHYvWMJatLSgWKNwCHYWVT7P GTfcUPA6KgulltKteOQgRCfoZN2NWELvuqIgZWDqMM BSDQo+Ph0MRA8az3JoOQh1DuUmDU9hls9PHLqPOcSjF4M0iYNmB1I3BGhqDf0QWHIbEGJiSPRqCCVURL lsGP7ULB8edaC5WU2ElMXeKCJgAMRoqKHoDAf2K25nwXCkVGzvCD7OQSJ+Mau+Oo9ZCACtTNUeSBSzRq NqLKVNObHgG4QvO5OWe4AyJ4HoVR64yAmluuQxWKdf TT8JPH9wWINcETVMJB4EcGIlcM7rgpE4LLNtHQKXXjJhC44shVSbVQVcPMXjHZJkJi3DDMQnK3BjifJs tJadgpXfCDZjIHYCBW0QVTnrquNmaLPtwTcmNX81qArsRC1HWq8MPbDjGB4hwf2NwZVgQk7UKBL8Ek1J SFXbMULmUECeYTK0WLAlTvRwKYcdYLBiVKNfXTZ5BM IsPJZgDC8JVbYyQAUsHAz1VMVwEXKzPDIays2HAPToBPD8QER6MYBfIZRaZMEcPHmyTUIaEYXzGUG0YP AfJCPnKQ9YDsGcUISsLLZ6NMbcAEInSGShpa0OYRRcGHWzUmPaAmMaBGGeHBHaSDhuGYKoWLR2WdF4FT CzFOSaXS0DBfAfOGIsKMX7QsrwAEUeTRKjic6FEPZh JSDvHCGyCFSxOGHoCTMfTCjzARBfCQR5UpT7LEEhBDNcCS4GUfIjMJWiSKs5DhMpZMWoRABbro7LZPDk YREoYGfdCQUaDIOiMRCjTTdtKWJjCZJqTGf0ZLKnJDDhTA3RWgZoZGCmOBLuYFglYPHfYYGdmm1QBHRs MJJdDSC5BpOdIRHgLRDaHNxkKJDhSHEfFaH6YBUmKD WkOA6AWhGhVNSyPHX0NhEjQFNdMDVvqe1UFLOqXSIhPlLcIuUqGXSqKHDmUVcoTDCfYSN0HYB2EHCuUW FjHY8PWpFhBBTxXnYeIQHuPNGpEQPhrz4RLVOsVOLwKIN0HNZxIZXqOGVzIOxtQSLqSNC9SmHoUFWqOA ObGQ6NTeNfDYIzYlA9EpffZZNhLSQchv1HQGWpACSt TdlzYETgOVTuVRBnWTvdESVzDTO7QKDeMVToRWRtNM8WHsOaCLQoClkyGXwzHKTvLOKrty7TFOAaYDQv GWBzXATrRGAbNBLaIXaaNABeIBR8ZqX8USBvHRPsNS2EIdKmFJPsWuo0MIzsSYFmFXMsot9KWWEySBY2 OOcvCWRcWVCrLCKdUFcrMZOqBJEvIGZ5AYLbYUJdOD 2DQeOrUTEwHGZtCIKaTTWbCXYiyw5HJODqEGE8QjQ7ZXTrGBWsQSNhZVwrAXZvDMOyZtReADYtMCJzSV 6BCzVeYRRuZOR2VzLdLFIiSIWtjk9THGDhYSE8Scl1FeQuEIQmYZZkQDmoJPPyFAP0OOF4JMPbHYCuJR 7NRsOhAZIhMRh8FTCgNGPtYKSvxk0AYXEjXPP1DORh PMQvGRVhINDiTWpwGQCnMRM1UWQwRRRwOLGoIU0GRvUfHNMiYJr6PkCjANUzBWGrlp8IHSOxZHW9QClm PJLpCSVyXFFrXFbeHUCmXPFtXrMwHCTlWBSiAC0WZqYpJZStMGA8CQsgECVzKKCkwg1YINQeWCG4DDim OMCqULGcEECjTThsDMZqNIHxJLuxSYNuSSBpPP0MAp OeHNvjIKIGElo1AHexG4m1AYE8Kh3MF4Hgr8SvTVDnVJAJSTfcLQ6emjCiIRPiJy5PB4uTGfmsQuUlAU R1DUGxWTP0WnMbLOI3USV2D2PpKGAxTjU9Sa5fVCE3JbG5CpQtQIH4HwdaWIF7EMWjQmncZHA6FDUhCV FiCeZnBI1NQt7CEjX6XXI4sDJaFh6KJHHoWqIJQiFvGN6GDZy= ID Date Data Source [id number] 03/24/2021 02:35:53 PM EDT [facility] Name Value Range Interpretation Code Description Data Arabella rce(s) Supporting Document(s) Consults [facility] VVWGYb9kCuXMJmNk90/UFZgeRBEqz0MrROmgUWp3YNitBRGgL5TiPTC1pI3dEKQ9TIpYFbWyLtJxIWM4 lbm [file] AgICAgICAgICAgICAgICAgICAgICAgICAgICAgICAg ICAgICAgICAgICAgICAgICAgICAgICAgICAgICAgICAgICAgICAgICAgICAgICAgICAgICAgICAgICAg ICAgICAgICANCiAgICAgICAgICAgICAgICAgICAgICAgICAgICAgICAgICAgICAgICAgICAgICAgICAg ICAgICAgICAgICAgICAgICAgICAgICAgICAgICAgIC AgICAgICAgICAgICAgICAgICANCiAgICAgICAgICAgICAgICAgICAgICAgICAgICAgICAgICAgICAgIC AgICAgICAgICAgICAgICAgICAgICAgICAgICAgICAgICAgICAgICAgICAgICAgICAgICAgICAgICAgIC ANCiAgICAgICAgICAgICAgICAgICAgICAgICAgICAg ICAgICAgICAgICAgICAgICAgICAgICAgICAgICAgICAgICAgICAgICAgICAgICAgICAgICAgICAgICAg ICAgICAgICAgICANCiAgICAgICAgICAgICAgICAgICAgICAgICAgICAgICAgICAgICAgICAgICAgICAg ICAgICAgICAgICAgICAgICAgICAgICAgICAgICAgIC AgICAgICAgICAgICAgICAgICAgICANCiAgICAgICAgICAgICAgICAgICAgICAgICAgICAgICAgICAgIC AgICAgICAgICAgICAgICAgICAgICAgICAgICAgICAgICAgICAgICAgICAgICAgICAgICAgICAgICAgIC AgICANCiAgICAgICAgICAgICAgICAgICAgICAgICAg ICAgICAgICAgICAgICAgICAgICAgICAgICAgICAgICAgICAgICAgICAgICAgICAgICAgICAgICAgICAg ICAgICAgICAgICAgICANCiAgICAgICAgICAgICAgICAgICAgICAgICAgICAgICAgICAgICAgICAgICAg ICAgICAgICAgICAgICAgICAgICAgICAgICAgICAgIC AgICAgICAgICAgICAgICAgICAgICAgICANCiAgICAgICAgICAgICAgICAgICAgICAgICAgICAgICAgIC AgICAgICAgICAgICAgICAgICAgICAgICAgICAgICAgICAgICAgICAgICAgICAgICAgICAgICAgICAgIC AgICAgICANCiAgICAgICAgICAgICAgICAgICAgICAg ICAgICAgICAgICAgICAgICAgICAgICAgICAgICAgICAgICAgICAgICAgICAgICAgICAgICAgICAgICAg ICAgICAgICAgICAgICAgICANCjw/pCXlG8rfsWNtzfK3C3hvQd8NCn6GIC9qm1UuHAFoYMgytwCzXomM HcLsPACwUznHPuq8ZAfkCC6TsILkV0KeF9VvQPznRC 2DDTWoZUExzAIgSSPlKPWrVaL8IXZrYQjlQK9OqDLdUDgdHSIjJBLhKjOjIQPsYAAiNYWrRXHlNSYGTE QlBWPtXvAtTTIiUPPeRNoyBSCUBSF5FEVdEyBpNMbzFC3Up6TfeWO4JQz+Hd8SAR4yo6PtSZt2EpEhQE 4ypo5BTBaELnZrX3OcomN9RFSuADCbVt6WBXOjPJAp tVR4HqNhGHTYTzOeM6RfqH27CHBAFf0+KQxtibHhXaeEUiUuYHMvu0YdOTn2XK3KLWEtLBe9yZRhW72d l2TwxJQdVqwxY2voiFaoaORXYUgtTXLtoeotDLIsUAYkLC7iZo4kTHJqUTUkRcItDKBFCW7JVQXlHKCh sXTiEIUiSCAKJO7HYSsvKIT1CkggjaMywPXwBArmIA 9QYXJlbnQgNDIgMCBSDQo+Ln1RZE8io3KzCHc5WWCkXH3tse7SPBiWSdJtW8K6aBLyO6T2WYavXk0JGE DnLXHiYCQoBVQMVTrcLZ5SJU0kguI9GX9RuHPtLJOcASUacGKxKIp8L93lvANfBAriZL1OXOA+Mau+Pg 3HAMTwMVCjHFTkLpEzQNZLCkSeN1YsC7VFi6KcR1Zg PG96xNhupgQvVZurHN5JLA6iKEPuNRGOSA4WzAOztC4uyuG2CgWnQNVQXkOuF85enEIxQCGdMYOaEQDf Tl7HGIKeL7XvzlYyiEabdaJxSBJrHJCEJH1TWDszzcTrrMVpxSanJI17xAsmIA3ZKc2QEsIiVB1nou3Q tEIeDm4JTIU8LZ2HWGFjZKOgNCAxMLL3TNKqMwTnXA laVVDqRHHcAXY6PZMwUXFjBQ0EMtCfHCDjZpvjPEycXHAtETLdxv9TBFPlDDD2VDQeLwDoYMGzTYVuZB nnFVLqHBGnQDG4AWTvSZNwUP9XUvXpXFFjVRXzRsDwPIIwLCRaiy5DHUBxEISbGdL9OUAiUYCvUXFkOI vyOYQtJRY5EgdzOOTpHTWrZB0SStUuIYSeWVS5OSVw AVVtIOGejr5KHJOxMWNmVIK5FnShUIBjKIDmFToyUKKhVEQ4YLb3TNRhPEBdJG0YSrQdPAQuUCY2MHul DVTtFQFotn8FNSFmZBYpXHC6RNLfPDAmSBDjCUxcBMCgKHYvKIG1RTKnKOQkSJ1BNxYjGBMuCCJ8YFYc GQRfJEAsmm4VGWEnRCZjFMZ7XIDuDMJsACMvRNlbIB HfKRX2MZk4WTTaBAMuDF4AYzQjYTAoWApyQGNpAWMqHJXjxr3AOPGlPNRqQtN9RONzAYTlSQLiYXmtJN ZtCJA4ITA0SGTcOUHrWM7IQdGpOSVcALziBcOqMKOkKQUcfb7MZZXvYLFvAIBjNJWvASTxLQEfHAztVV UdSNK1YXTdZGMdIJCuHI7KDyDzDAApOJp2LOKrXPJm IABzyr3COOIqWXAyHHW1OWWjEHCxNXGlLPidCIRoPFAjEjA9YVUpUIKsMW5BDlPoCIPtWtP1QOReRMIe QXFnot0IVBDnCYTeJIiaRDJmTZVsSKXcQLicIOMeUFAcGIA6TTUjAGVuJZ8ELcPtXRPiOkQtJSLgRLVq ONHwia2IDTYvQHBgFeU2NHOnKYMqNLMmIRbkTYRiSO NcEJE7QNGhLNKeBE7MPkQhKNPxPrR5SCWmATGnCKIiee4EFJUoQJAiIUNoPSZtZZHkKLEpCOnkBUFaGZ R8YHO5YYAbGKMeEN0KIpPgEBJkYjU2TXNsZBUfFWTukd8ZHJWiAWUbGWDkDDUvPNOaLZMsASazZDJzSR N3RzH9ADWtNAOzNB8GJcIsUYXgFfn5OKtvUBFjVMRj ft2EFIOgMZFrIER5YFXlZCOqIQPwUQapVUKuSUR8YwF5AZReCGSiFL7LCcBqVIPkJch8YFRaPFDxNIZg ed0QPGAnXPI9KQB6OSLwIDOmQACuZAcxREZvDSAkSaAcAZVgYTUaMZ3NDeSfLBLvTGRqASofHLWgNTQj ck3RqQEbxYqvtd1TTAuVFi1PmUugDYM7ZMejQa4afW M4SJCbYVYMDc2OekTjVDSkKICQIHweIIEeDGstBSLrOQB0DGDaOAExCOB2DFL2TMEhRoEhGDFsGwX0Xv C8E7B1ZpPuQBOvFgB7QfD8BjmgKbz7CqW4ZeOzIkDfJpV+LB2jRDs+Gq0Od8DcwiA3eyRaCRn8IVMaDE 2PSLEDL7HUDm== ID Date Data Source [id number] 03/24/2021 02:16:15 PM EDT [facility] Name Value Range Interpretation Code Description Data Arabella rce(s) Supporting Document(s) Care Plan [facility] VZQOIy8uXdKRZmJb11/SNLwoJSGze5WfDDrpALb0AFgqTAPrZ9CwKGN7bV4oYXA1LBaGIqYcPkGqAHC2 lbm [file] Cj4+GJdweXNldCpsLQSNCbJqMYC2VWkiOWWTOi9Z ID Date Data Source [id number] 03/24/2021 01:20:24 PM EDT [facility] Name Value Range Interpretation Code Description Data Arabella rce(s) Supporting Document(s) Consults [facility] MDPJEq9eWlZQThVu48/BUMrvHMMan6LsEPnsHUa3DJvgZYIaZ5IzAYT7rI3rUIQ9WLaDXzBdWuFpAZK2 lbm [file] BSDQogICAgICAvRjEgMTcgMCBSDQogICAgICAvRjIgMjAgMCBSDQogICAgICAvRjMgMjMgMCBSDQogIC LsWDGjPzImVuCwYHZIXPhqOHJyBLJxUjEfTuagAVPRXv3OUlZoCIIsRM1iqeQeuHS7NWO+Cx0JTCAaOZ 5RlFXMN0LpcQYpJHtmV8NWAS0XFVC2QY4JhYCdRZ6T oFAAX3ElfCAuYg1fPFIqf2UwZf5tX9RINIEJUHRyAXabPZejZZKaSOo8L2A6XAUeD7PED279tCNedAw9 Ya0hS8SRSEzHZrCzTGluCIlhOSTmSXz0Q9X1CODpE9WSE6FsVxWanpQpG9B+QzCvYEKKJE0YYXBUARh7 R4Y2sVCyD4H2tBjVmZY4UY6FTA5JyWNbzBOfv82+Pi AZIzAeKORlV3WNJTNQUlKnBNnqMFieBJFmRYa3R9H4IRLfB6KAW9mjC3o7UF1+DxDLHrBjXHCxPs2JRx IqFo4JRdTfKL5cas3PZyWuKPAdMknHQoo7I1rycgu5tKYsSvZ7J1V9FiA7fTXbAF4GU2P5cTRyOZW4NR RhdGE+Mx1He1QpVWAcSKv1P3riHIMkFJGcOoLnlN93 J++8uscggZT4O1j8JNOTeVIpnGoXctAzH3tPAGJ5j5J7FHi/Ix2BPNW5wAo0tRVdIWTuJZh9wZ2kyBg7 WcRvOI83QFJvMLnusR3iWbz9A7Eds3CbJr5nSa7pdXQaZm6WLcYrQRH5dtMiIiUOVhQ0cVdibqdcURH6 G3u1wXK4Sk50n0fusdCet7SeRbI7LWbsBSUbTlPhgs SgIYJ5nmTnyC1yaiRcUg7EGWRoUIwiuqGyViQNLf6XQiKmLN24WwclnK2ceEG+DQogICAgICAgICAgIC AgICAgICAgICAgICAgICAgICAgICAgICAgICAgICAgICAgICAgICAgICAgICAgICAgICAgICAgICAgIC AgICAgICAgICAgICAgICAgICAgICAgICAgICAgDQog ICAgICAgICAgICAgICAgICAgICAgICAgICAgICAgICAgICAgICAgICAgICAgICAgICAgICAgICAgICAg ICAgICAgICAgICAgICAgICAgICAgICAgICAgICAgICAgICAgICAgDQogICAgICAgICAgICAgICAgICAg ICAgICAgICAgICAgICAgICAgICAgICAgICAgICAgIC AgICAgICAgICAgICAgICAgICAgICAgICAgICAgICAgICAgICAgICAgICAgICAgICAgDQogICAgICAgIC AgICAgICAgICAgICAgICAgICAgICAgICAgICAgICAgICAgICAgICAgICAgICAgICAgICAgICAgICAgIC AgICAgICAgICAgICAgICAgICAgICAgICAgICAgICAg DQogICAgICAgICAgICAgICAgICAgICAgICAgICAgICAgICAgICAgICAgICAgICAgICAgICAgICAgICAg ICAgICAgICAgICAgICAgICAgICAgICAgICAgICAgICAgICAgICAgICAgDQogICAgICAgICAgICAgICAg ICAgICAgICAgICAgICAgICAgICAgICAgICAgICAgIC AgICAgICAgICAgICAgICAgICAgICAgICAgICAgICAgICAgICAgICAgICAgICAgICAgICAgDQogICAgIC AgICAgICAgICAgICAgICAgICAgICAgICAgICAgICAgICAgICAgICAgICAgICAgICAgICAgICAgICAgIC AgICAgICAgICAgICAgICAgICAgICAgICAgICAgICAg ICAgDQogICAgICAgICAgICAgICAgICAgICAgICAgICAgICAgICAgICAgICAgICAgICAgICAgICAgICAg ICAgICAgICAgICAgICAgICAgICAgICAgICAgICAgICAgICAgICAgICAgICAgDQogICAgICAgICAgICAg ICAgICAgICAgICAgICAgICAgICAgICAgICAgICAgIC AgICAgICAgICAgICAgICAgICAgICAgICAgICAgICAgICAgICAgICAgICAgICAgICAgICAgICAgDQogIC AgICAgICAgICAgICAgICAgICAgICAgICAgICAgICAgICAgICAgICAgICAgICAgICAgICAgICAgICAgIC AgICAgICAgICAgICAgICAgICAgICAgICAgICAgICAg KSXnFSJtORm9P9kjAVMfJYAiLY9wNCs7Sn5+BDmAZwMxKCM4ybWftW9HRE1iv4NkAOchVKJbn8BfQQh1 DT2XEGFaGBqqNE9XHVpptv2VTVWsWEYknKGYa0ywQxFjZNL1ZOLdYvqvBE7PYDGmK5oxacSaNPOvGWTH RNcwBKACKZgwRVOZSVWiNIYvRaVsQFuwJK8Dv4HufZ A0DQo+Bk4LEV1dg0MpYSfbRzXxEG5hku9YNTyUDnCxR1RrxbK9EYKdGQDfLn8KBXKkTCWpePVxPeMnYW UTKvJhE9FxnK37RVYVTl3+DWfucfNiVjpFJdFrGHMnk9DzTIm8LV1QMWYgTFa7yLUnM81eh2EayQBaRg puPKM8ZPQrniODEtAGkaW1CEglWBRgLWRkSB0wEk5n OKCgJYUxAbV4VPBEIU9LTMWaYZUfxEGwDNZdXTZDRA6RABonGMA4SjrjsjBknIWdTGwoVI7JYIHtanXs MzIgMCBSDQo+Xe3BUE7eu2ZaKGtmPSYaRG3jyh4RUZlAAlBaJ9Q6eUVjH7E4PDxpOk8IBMZfYLHcMtZy BJGCKMcbDQ2LBQ7vmxN9VG8MbDTdZWCxHSHggQThLN x3R79zxNHbSDiuPJ2EINL+Mau+Id8KBRPtNOPjBEJxIpGbIKZZGtTtZ8EyI8DJr2EfE6YnVH67hRxawm IyLQkzLG9CPV4fSSHdKVRPYN1GvLPlzA0umgNiKmVqNJUPMqOkG77maIOoIDCiQCQdSDUaKj4UYLKrQ2 UsxrUetMlwcyVuJZJbKCQXDV5KOPtcarKqpUBadPid MA04kBqeVG9PDc7ZXpSkJD0ler2SyLTuEg0VULMxWR2GTCYsXKLjUSCcTHS4PVKsXhJyMXygAXOaBBRx XLC0EECvZNJtQH1UXoCzEFMkXoJgUUWwQPBeHUPwep9TSFKxRIWuHpC0IUHfIDLjKMPxDPgpKBDyTHRv WSP2VVIyOHQmYG2BKrWqPRZnZMM4FpUmPZOiTIHxla 0ZCBIaDJNlFdp4ISUnWPMsPEVkLDgcDDJqDWH1MYC7VNAmOMFiNI0IImMdCJSgAJkyGjjpZXWjKUFfuv 9CEJFaEWNsIXJlFMNcNYQhMLNoWIokVJOpMSSkFbE0HUShKTKnYT0JRpArJCIuSNV0LqOkOIPbNMQdep 5ELSPiPXWeLoP8YuBuSGWlSRNiVRinOJBtLHV1ILBz INSgKYTxXU0BGyMjFSOjNBZhBhCuWDOkFHLrel8KIQMzQNSxUSAvXHQnUMHtJCNrBPecCKBdTUF4TGvc QMLnRKOsMZ5NDtXjKZKuYLU1KnspKQKyKKDvij3FJOTjMLUnULg7UUCnZFGbLEMeBFfwXRXuRFU9TTS1 UNDkRSIuNO4NJyHqTATmRYgbQfFzNZPrEPVjuv8WIU JcCPZnEhJaZEMgPHUdPGQjZCgzBDZyXDT7QNC0URKhIVRhQA0MKtGqMLWmEAmjQjIjQELdSPTbyy6VWJ VzJEMcCNC0IUZvGDReLPRbQQukXEVjPID9EQGdKCMsEAKhUV0HNvBnCKQjEYr2CtwyBGViFJOymk1AOY BsFLRnIPlwLwLtENVwZJMtSIbqBDLcXJQhMKl8EAHr HOCxZQ5BGtUwNVQnXcQcUrZdIOCwGPPxjj8UQELwHRVbIKP1KPHuSKDlDZSgEGytOOFlPDLoChH5AKIp NWJjNC1MYjKmUNZrJqIiOEZrFUCgWTYtnk1EDGRzRIItHeY4KaGcDYXeSPHoBXbrTIXdFWBmRGRiHIOu RWIlJD0RGaJhXSmnECGYMxa6HSstR1e8DSWlFC2CD5 Kup9WeEqOlSDRESCytPB1hjlKzKISlPe7DB7cSJmhqIQOiXPI4VBEwGhD8IGUoUCS5YAOhBzOrUJTkP6 OoDL7hQJUnK8XhBJP6CVGqCKTpPETiBWobCFQuSQX2BHZ5EGX9JqReTX6QTd7TBmU4GAE9mFFoMm4LSl X9AKRCJvIxMU2JONd= ID Date Data Source [id number] 03/24/2021 12:26:04 PM EDT [facility] Name Value Range Interpretation Code Description Data Arabella rce(s) Supporting Document(s) Progress Notes [facility] ODFZZw6xXoXMAjAs08/PRDvrHXOmw2ZlQPwnUAp8RIhaXDQvK8CeOIZ6sD5kMQH2HNxEWpBgYtRwRDZ2 lbm [file] QgTYX5K0HkKRM1NjX9WLEkKfIbLX7UKs4MPsF1IJR1nZHfZe4TWvN1QTUAEuWmEY0JVKw= ID Date Data Source [id number] 03/24/2021 12:13:35 PM EDT [facility] Name Value Range Interpretation Code Description Data Arabella rce(s) Supporting Document(s) Progress Notes [facility] XRXNVv5hOtGVMbPn19/LPQbsUDGrf5BjUFefVVz9MPsbFOGgO2MuJOJ3zF7wFLQ4HKyEOlMaSuMdVPD9 lbm [file] 0K ID Date Data Source [id number] 03/24/2021 05:26:27 AM EDT [facility] Name Value Range Interpretation Code Description Data Arabella rce(s) Supporting Document(s) Nursing Note [facility] NVRWRe3hFlDQLmCv69/TXVedVCJrd5GgQRldOAi2OIvmGWHdL5SxMML2aS7oRUJ3VBmLOzEhXuPmVTR0 lbm [file] PuSRTqOhG7XmL4DoExOVTxCtPwYP0RId9WBjM7KLD7zRZoCc5NSdZyYXlLVlQdXA5EZTx= ID Date Data Source [id number] 03/24/2021 05:34:00 AM EDT [facility] Name Value Range Interpretation Code Description Data Arabella rce(s) Supporting Document(s) AST 12 IU/L 15-37 Below low normal [facility] Sulfasalazine and sulfapyridine have the potential to falsely depressAspartate Aminotransferase results. Baseline values before medication administration are recommended. ALT 17 IU/L 13-56 Normal (applies to non-numeric resul ts) [facility] Sulfasalazine and sulfapyridine have the potential to falsely depressAlanine Aminotransferase results. Baseline values before medication administration are recommended. Alkaline Phosphatase 53 mIU/ml 50-136 Normal (applies to non-num madiha results) [facility] Total Bilirubin 0.70 mg/dl 0.20-1.00 Normal (applies to non-numeric results) [facility] Blood Urea Nitrogen 6 mg/dl 7-18 Below low normal [facility] Creatinine 0.62 mg/dl 0.51-0.95 Normal (applies to non-numeric resul ts) [facility] N-Acetylcysteine (NAC) and Metamizole em ve the potential to falselydepress Creatinine results. Baseline values before medication adminstration are recommended. Patients undergoing treatment with phenindione will have falselydepressed results. Patients on phenindione therapy should be tested with an alternativeCREA method.Toxic levels of acetaminophen may lead to falsely depressed results forpatient samples. Glomerular Filtration Rate >90.00 mL/min/1.73m2 [facility] GFR Reference Ranges:Normal Function or Mild Renal [...] of Health and the National KidneyFoundation. The [place] method used in calculating this result is traceable to IDVT standards. Glucose 91 mg/dl 70-110 Normal (applies to non-numeric resul ts) [facility] Sulfasalazine has the potential to false ly depress Glucose results. Sulfapyridine has the potential to falsely elevate Glucose results. Baseline values before medication administration are recommended. Calcium 8.2 mg/dl 8.5-10.1 Below low normal [facility] Total Protein 6.2 g/dl 6.4-8.2 Below low normal [facility] Albumin 2.8 g/dl 3.4-5.0 Below low normal [facility] Sodium 141 mEq/L 136-145 Normal (applies to non-numeric resul ts) [facility] Potassium 3.9 mEq/L 3.5-5.1 Normal (applies to non-numeric resul ts) [facility] Chloride 113.0 mEq/L 98.0-107.0 Above high normal [facility] Anion Gap 8.1 [facility] Carbon Dioxide 23.8 mMol/L 21.0-32.0 Normal (applies to non-numeric results) [facility] The above 16 analytes were performed by [facility] [id number], ,[place] [address] ID Date Data Source [id number] 03/24/2021 05:34:00 AM EDT [facility] Name Value Range Interpretation Code Description Data Arabella rce(s) Supporting Document(s) Magnesium 2.0 mg/dl 1.6-2.6 Normal (applies to non-numeric resul ts) [facility] The above 1 analytes were performed by [facility] [id number], ,[place] [address] ID Date Data Source [id number] 03/24/2021 05:26:00 AM EDT [facility] Name Value Range Interpretation Code Description Data Arabella rce(s) Supporting Document(s) WBC 6.03 x1000/ul 4.80-10.00 Normal (applies to non-numeric re sults) [facility] RBC 3.58 x1Mil/ul 4.20-5.40 Below low normal [facility] Hemoglobin 9.3 g/dl 12.0-16.0 Below low normal [facility] Hematocrit 30.2 % 37.0-47.0 Below low normal [facility] MCV 84.4 fL 81.0-99.0 Normal (applies to non-numeric resul ts) [facility] MCH 26.0 pg 27.0-31.0 Below low normal [facility] MCHC 30.8 g/dl 32.2-37.0 Below low normal [facility] RDW 16.3 % 11.5-14.5 Above high normal [facility] Platelet Count 230 x1000/ul 130-400 Normal (applies to non-numeric results) [facility] MPV 11.6 fL 9.4-12.4 Normal (applies to non-numeric resul ts) [facility] Neutrophils 46.6 % 40.0-74.0 Normal (applies to non-numeric resu lts) [facility] Lymphocytes 41.1 % 19.0-48.0 Normal (applies to non-numeric resu lts) [facility] Monocytes 9.1 % 3.4-9.0 Above high normal [facility] Eosinophils 2.0 % 0.0-7.0 Normal (applies to non-numeric resu lts) [facility] Basophils 1.0 % 0.0-2.0 Normal (applies to non-numeric resul ts) [facility] Immature Granulocytes 0.2 % 0.0-0.5 Normal (applies to non-nu meric results) [facility] Nucleated RBCs 0.00 % 0.00-0.20 Normal (applies to non-numeric r esults) [facility] Abs. Neutrophils 2.81 x1000/ul 1.92-8.31 Normal (applies to non-numeric results) [facility] Abs. Lymphocyte 2.48 x1000/ul 1.20-3.70 Normal (applies to non-n umeric results) [facility] Abs. Monocytes 0.55 x1000/ul 0.14-0.97 Normal (applies to non-nu meric results) [facility] Abs. Eosinophils 0.12 x1000/ul 0.00-0.76 Normal (applie s to non-numeric results) [facility] Abs. Basophils 0.06 x1000/ul 0.00-0.22 Normal (applies to non-n umeric results) [facility] Abs. Immature Gran. 0.01 x1000/ul 0.00-0.02 Normal (appl ies to non-numeric results) [facility] Abs. Nucleated RBCs 0.00 x1000/ul 0.00-0.02 Normal (appl ies to non-numeric results) [facility] The above 24 analytes were performed by [facility] [id number], ,[place] [address] ID Date Data Source [id number] 03/23/2021 11:42:40 PM EDT [facility] Name Value Range Interpretation Code Description Data Arabella rce(s) Supporting Document(s) Care Plan [facility] RCWMFf5wShGMFsRz74/YDWodEZMyw8WyPDreFJv2SThxVQFlG4ZaCIZ6uC2gMMV8MXeDXlVxQvSlIPM4 lbm [file] AgICAgICAgICAgICAgICAgICAgICAgICAgICAgICAg ICAgICAgICAgICAgICAgICAgICAgICAgICAgICAgICAgICANCiAgICAgICAgICAgICAgICAgICAgICAg ICAgICAgICAgICAgICAgICAgICAgICAgICAgICAgICAgICAgICAgICAgICAgICAgICAgICAgICAgICAg ICAgICAgICAgICAgICAgICANCiAgICAgICAgICAgIC AgICAgICAgICAgICAgICAgICAgICAgICAgICAgICAgICAgICAgICAgICAgICAgICAgICAgICAgICAgIC AgICAgICAgICAgICAgICAgICAgICAgICAgICANCiAgICAgICAgICAgICAgICAgICAgICAgICAgICAgIC AgICAgICAgICAgICAgICAgICAgICAgICAgICAgICAg ICAgICAgICAgICAgICAgICAgICAgICAgICAgICAgICAgICAgICANCiAgICAgICAgICAgICAgICAgICAg ICAgICAgICAgICAgICAgICAgICAgICAgICAgICAgICAgICAgICAgICAgICAgICAgICAgICAgICAgICAg ICAgICAgICAgICAgICAgICAgICANCiAgICAgICAgIC AgICAgICAgICAgICAgICAgICAgICAgICAgICAgICAgICAgICAgICAgICAgICAgICAgICAgICAgICAgIC AgICAgICAgICAgICAgICAgICAgICAgICAgICAgICANCiAgICAgICAgICAgICAgICAgICAgICAgICAgIC AgICAgICAgICAgICAgICAgICAgICAgICAgICAgICAg ICAgICAgICAgICAgICAgICAgICAgICAgICAgICAgICAgICAgICAgICANCiAgICAgICAgICAgICAgICAg ICAgICAgICAgICAgICAgICAgICAgICAgICAgICAgICAgICAgICAgICAgICAgICAgICAgICAgICAgICAg ICAgICAgICAgICAgICAgICAgICAgICANCiAgICAgIC AgICAgICAgICAgICAgICAgICAgICAgICAgICAgICAgICAgICAgICAgICAgICAgICAgICAgICAgICAgIC AgICAgICAgICAgICAgICAgICAgICAgICAgICAgICAgICANCiAgICAgICAgICAgICAgICAgICAgICAgIC AgICAgICAgICAgICAgICAgICAgICAgICAgICAgICAg ICAgICAgICAgICAgICAgICAgICAgICAgICAgICAgICAgICAgICAgICAgICANCjw/qEToG2jglSLvbsZ0 B4ouUg3FYc0YRL5xw7FmZORaZZxbqnJdZkwKVaSnCJMsLyoWKeu9DGlsYG2OrLErQ9BgC5UgKEqqNB9S QTXeDMEngZZsJLYiMSEkInU0UVAwHCppSE1IcFTrHM quBFMzZJQvZC6TLYYaL587cxCmJJ8AWs6DBdJqVR6pal7KUiXmOBYkFofEAqd9ORowEU9TqEFibGWfWi HdRJWRPrDdH8kvy4NsTcAlKSYYCPtaSV0Km4IfaEBmMCk+Hd4JGT9mp9OoBYsbCbDuJB2omv5IDYaFYk SuT4QhiQefUYYnjyTrJUdzfbKjhXWWLOD0XS2hMJOq flPeVSvfAWVUNAH9TCpsXOFwHaEsOUKcIGe9HyKJBQtQVcGbV2Ush0MgPmO2BABpRcDiHKyuSTDxRyI6 WQ00lRbsSK5MUMCbFXLhKU20WBA0BUAdEk7UXn9CJzPqLV4tiu0VSqsxRLKfZizOFns7AFuaET4UvFQv A6SrzYYen5oFRhHoF2QUHREyDEOpZx4ZBCSuOyGtWD GaYItoML1oMAYcJYUVcHizdhY3ZO7VMV7rcaWnQM4OFlGmAw4jOy6IJfTvG3LqH1BaCSNnDAEUVZsyZC 3RJEzpUT1gYL7Xh0PUzUSpqQ7tkj9UTIQvAGZkPqpoly7WQrqxY6W1bCsmOQDqMiRyGZQVVUukZM4QAE AlIMT5IWFgJJUsAOWPHdZrJ81fZP4SB3Wjp07wVnO9 LLTjIvOrHNboRE38xYsmyyZarUEwrKctNP0PIo9+DQplbmRvYmoNCnhyZWYNCjAgMjgNCjAwMDAwMDAw MPTsXmO1OfVcEz1WYQDoBMJoHWJqQmLoVTOpPFIiHRsmUDFnMQWcNtRxPGVbKPYyZE8UNeRoLXAlPyN0 EKRkMZXsXQUdpo4GZNYnCQWuJUS0UcDrEYMkNDVrDL eoTDEbLJHaZVA1CXOxLUToUD0OQcAlLBYgEYEoThVqIEEhBTNmrs0MGEEoEJJiAkIxYDVaSPSyAZQxDG mzDEHpBWWnCkG7FWJwGKRuQO1CMzFaWOFsXJV5HMDyYLCcJURqvm9TPZDhYHYeEGK7EnAfZESdMFQyXF gbRSCjLXZ0EaemWVRoRLUiEY6UXoXkXDIbQST2RWLf EOPrLOZojl2XGXXvIQWaPsQgURHhAGVcVDQnAVthKCKzSQY8LBM3TNZbLWDsUK8RFeQyGQJfPBp5LdNk VMGfVPIxxw3QWHMrKJUsYpv2NzJwAPZsSOKqWVibOALiYBA2ZDNkUHIaNDPdRV2YDoVvDKWjISiaCGZz IHMjQXGexi3WKUUrYBLuNUC3GqKiNHHhNPCcQTzjNI JsGYD2ZHW4QOLwSWBoHC2CFmCvJKDlGeJkZMUtWONnEROgit9JKSZrIZLzQSF2NMOcSOHaLBLvGJnuMW RrZNJiKfO7OLNtBLLeVT1ZYlYxPTHaSpBhQeHvJWNbGYGgst4MOLKiECUpKsMyPKHhLGKtPEIwEBbsSO VbNYFvFng3RYVhBIRdFA4CHxGqSPRgReM7RpCtNFUc BIFnje2BrYOrpJdrlg4AALdLWa5LdGsxYTU4ALiuQp4giWVsQtXoQZDHMp8HhqIzBKDpEWPVZHimQIEs HIvtUYk6YfH7XTWaTXBvFwBhLPXfYWNuKbEvLObyKyqkLvT6TML0SZzwIpIxPYKnUNX3Q9TlJgW1WrRe YMS6VYAaMNJ+YA2fOKx+Tq5Yj4QwseG0eiBkWZliJsO6SO3REVOBX3JNWd== ID Date Data Source [id number] 03/23/2021 10:26:00 PM EDT [facility] Name Value Range Interpretation Code Description Data Arabella rce(s) Supporting Document(s) Glucose, Fingerstick 103 mg/dl 70-110 Normal (applies to non-num madiha results) [facility] The above 1 analytes [facility] [id number], ,[place] [id number] ID Date Data Source [id number] 03/23/2021 10:23:00 PM EDT [facility] Name Value Range Interpretation Code Description Data Arabella rce(s) Supporting Document(s) Lactic Acid 1.8 mMol/L 0.4-2.0 Normal (applies to non-numeric resu lts) [facility] The above 1 analytes were performed by [facility] [id number], ,[place] [address] ID Date Data Source [id number] 03/23/2021 09:48:00 PM EDT [facility] Name Value Range Interpretation Code Description Data Arabella rce(s) Supporting Document(s) AST 12 IU/L 15-37 Below low normal [facility] Sulfasalazine and sulfapyridine have the potential to falsely depressAspartate Aminotransferase results. Baseline values before medication administration are recommended. ALT 16 IU/L 13-56 Normal (applies to non-numeric resul ts) [facility] Sulfasalazine and sulfapyridine have the potential to falsely depressAlanine Aminotransferase results. Baseline values before medication administration are recommended. Alkaline Phosphatase 56 mIU/ml 50-136 Normal (applies to non-num madiha results) [facility] Total Bilirubin 0.80 mg/dl 0.20-1.00 Normal (applies to non-numeric results) [facility] Blood Urea Nitrogen 7 mg/dl 7-18 Normal (applies to non-nume ny results) [facility] Creatinine 0.67 mg/dl 0.51-0.95 Normal (applies to non-numeric resul ts) [facility] N-Acetylcysteine (NAC) and Metamizole em ve the potential to falselydepress Creatinine results. Baseline values before medication adminstration are recommended. Patients undergoing treatment with phenindione will have falselydepressed results. Patients on phenindione therapy should be tested with an alternativeCREA method.Toxic levels of acetaminophen may lead to falsely depressed results forpatient samples. Glomerular Filtration Rate >90.00 mL/min/1.73m2 [facility] GFR Reference Ranges:Normal Function or Mild Renal [...] of Health and the National KidneyFoundation. The [place] method used in calculating this result is traceable to IDMS standards. Glucose 48 mg/dl 70-110 Below lower panic limits [facility] Sulfasalazine has the potential to false ly depress Glucose results. Sulfapyridine has the potential to falsely elevate Glucose results. Baseline values before medication administration are recommended.Repeat and Verified Called To (First Last):OBEY VALENTINE Degree/Accreditation of Person Called:RNLocation Called: [id number] Tests and Results Called:GLU 48Additional Tests that were Called:Read Back (Y/N):YDate:03/23/2021Time:2148By:CARTER CORDOBA Calcium 8.2 mg/dl 8.5-10.1 Below low normal [facility] Total Protein 6.6 g/dl 6.4-8.2 Normal (applies to non-numeric re sults) [facility] Albumin 3.0 g/dl 3.4-5.0 Below low normal [facility] Sodium 140 mEq/L 136-145 Normal (applies to non-numeric resul ts) [facility] Potassium 3.3 mEq/L 3.5-5.1 Below low normal [facility] Chloride 114.0 mEq/L 98.0-107.0 Above high normal [facility] Anion Gap 8.3 [facility] Carbon Dioxide 21.0 mMol/L 21.0-32.0 Normal (applies to non-numeric results) [facility] The above 16 analytes were performed by [facility] [id number], ,[place] [address] ID Date Data Source [id number] 03/23/2021 09:30:00 PM EDT [facility] Name Value Range Interpretation Code Description Data Arabella rce(s) Supporting Document(s) Magnesium 2.0 mg/dl 1.6-2.6 Normal (applies to non-numeric resul ts) [facility] The above 1 analytes were performed by [facility] [id number], ,[place] [address] ID Date Data Source [id number] 03/23/2021 09:30:00 PM EDT [facility] Name Value Range Interpretation Code Description Data Arabella rce(s) Supporting Document(s) C-Reactive Protein (Non-Cardiac) <2.90 mg/L 0.00-3.00 Normal (applies to non- numeric results) [facility] The above 1 analytes were performed by [facility] [id number], ,[place] [address] ID Date Data Source [id number] 03/23/2021 09:05:00 PM EDT [facility] Name Value Range Interpretation Code Description Data Arabella rce(s) Supporting Document(s) WBC 6.19 x1000/ul 4.80-10.00 Normal (applies to non-numeric re sults) [facility] RBC 3.47 x1Mil/ul 4.20-5.40 Below low normal [facility] Hemoglobin 9.1 g/dl 12.0-16.0 Below low normal [facility] Hematocrit 29.8 % 37.0-47.0 Below low normal [facility] MCV 85.9 fL 81.0-99.0 Normal (applies to non-numeric resul ts) [facility] MCH 26.2 pg 27.0-31.0 Below low normal [facility] MCHC 30.5 g/dl 32.2-37.0 Below low normal [facility] RDW 16.8 % 11.5-14.5 Above high normal [facility] Platelet Count 228 x1000/ul 130-400 Normal (applies to non-numeric results) [facility] MPV 11.4 fL 9.4-12.4 Normal (applies to non-numeric resul ts) [facility] Neutrophils 54.6 % 40.0-74.0 Normal (applies to non-numeric resu lts) [facility] Lymphocytes 34.7 % 19.0-48.0 Normal (applies to non-numeric resu lts) [facility] Monocytes 8.7 % 3.4-9.0 Normal (applies to non-numeric resul ts) [facility] Eosinophils 1.1 % 0.0-7.0 Normal (applies to non-numeric resu lts) [facility] Basophils 0.6 % 0.0-2.0 Normal (applies to non-numeric resul ts) [facility] Immature Granulocytes 0.3 % 0.0-0.5 Normal (applies to non-nu meric results) [facility] Nucleated RBCs 0.00 % 0.00-0.20 Normal (applies to non-numeric r esults) [facility] Abs. Neutrophils 3.37 x1000/ul 1.92-8.31 Normal (applies to non-numeric results) [facility] Abs. Lymphocyte 2.15 x1000/ul 1.20-3.70 Normal (applies to non-n umeric results) [facility] Abs. Monocytes 0.54 x1000/ul 0.14-0.97 Normal (applies to non-nu meric results) [facility] Abs. Eosinophils 0.07 x1000/ul 0.00-0.76 Normal (applie s to non-numeric results) [facility] Abs. Basophils 0.04 x1000/ul 0.00-0.22 Normal (applies to non-n umeric results) [facility] Abs. Immature Gran. 0.02 x1000/ul 0.00-0.02 Normal (appl ies to non-numeric results) [facility] Abs. Nucleated RBCs 0.00 x1000/ul 0.00-0.02 Normal (appl ies to non-numeric results) [facility] The above 24 analytes were performed by [facility] [id number], ,[place] [address] ID Date Data Source [id number] 03/23/2021 07:56:26 PM EDT [facility] Name Value Range Interpretation Code Description Data Arabella rce(s) Supporting Document(s) Nursing Note [facility] VTRMCq0uTlOHMtSe77/UPCgyOFYlo1MoQLquXKj1XIfrIQDnV5CfMML8dH8cKNW6RYxATrNpQfTyZZP5 lbm [file] 9GDQo= ID Date Data Source [id number] 03/23/2021 06:01:26 PM EDT [facility] Name Value Range Interpretation Code Description Data Arabella rce(s) Supporting Document(s) H&P [facility] ZIQJPl7mNuNVXaLq59/DIAryMJAwu9RtPCznRNy2LVuaHGIoY1VsDSD3kX9bTCJ7UNlJSyRlFfGtSGG4 lbm [file] AgICAgICAgICAgICAgICAgICAgICAgICAgICAgICAgICAgICAgICAgICAgICAgICAgICAgICAgICAgIC ZuEFVdOKHbCMGvVNXfVDNhOGAeWH6ZCUQnALOrISQf ICAgICAgICAgICAgICAgICAgICAgICAgICAgICAgICAgICAgICAgICAgICAgICAgICAgICAgICAgICAg AAXeLFMmJZCuLXQbVKLcXVShROObDMLdISBbWGZyVK9LEMDbHQJtVSIrYLFbOBFnESUaHYHwSZTsKLQu ICAgICAgICAgICAgICAgICAgICAgICAgICAgICAgIC GzNOXfKGYcEHLkNBLvQXAlEXLsQCXhLYWvANWaANNeOHNdPBEeAYFjLZ7BIWZeWMGdGMDtTLOjDNStDD AgICAgICAgICAgICAgICAgICAgICAgICAgICAgICAgICAgICAgICAgICAgICAgICAgICAgICAgICAgIC PzMXVfZSNaRXYwUMCqYVVtUJKbINZnSM6ILDXhRCQs ICAgICAgICAgICAgICAgICAgICAgICAgICAgICAgICAgICAgICAgICAgICAgICAgICAgICAgICAgICAg GNQjSQWkGICqTWFaLDLxHSOrLXTnCXKhHLXdHEEbVVEpST2SIFIeMQCgRUQiFHNeTZEzYLMuGDQwVZPd ICAgICAgICAgICAgICAgICAgICAgICAgICAgICAgIC LsDYAzXTCbVRXePWYbHDAuGHPyZMJnBGHcAHYiZPFrHJFwPSCmDBWbFVDeMZ6OMQUiESSbYXQcJOSfOB AgICAgICAgICAgICAgICAgICAgICAgICAgICAgICAgICAgICAgICAgICAgICAgICAgICAgICAgICAgIC GaONAfEJQfCVCeOMBfSAUyCNDwIIPzBFQwQP4XMNNh ICAgICAgICAgICAgICAgICAgICAgICAgICAgICAgICAgICAgICAgICAgICAgICAgICAgICAgICAgICAg MATkHKAwDMLcDSLoHJEiKAThOUDrWJBdGWStKKHwNKKsJHIpQZ6MTHIwVNSyHVVdLCDbTHCmQFYvBQOc ICAgICAgICAgICAgICAgICAgICAgICAgICAgICAgIC DgABObMPClYEHaRMXdSJAmZFCtODSfDRShAAQaVORuGBZyXDDdDJDhSNPiGZQuUY0HBHOfNBMuKNXdTP AgICAgICAgICAgICAgICAgICAgICAgICAgICAgICAgICAgICAgICAgICAgICAgICAgICAgICAgICAgIC QyPIMjDLApEWOwWPQmYCEeQFEcUMCxVCJtQSRaAM8R SG21ySPij9X0FTVnNP2nctb/Rg9UZWnhtzFscATmOV8HSgLuZS9omr1LTaRlTV8jei5TVXqLJvSkR3H2 jJOmUVVwZAXURbKxS95nDWttCm55ZMabQEOnPgEiYDc7De8UOlHiZ5dmZRTjPjT6DJXoXqH5MEOhNqF9 TLAhDgTvOHFdRNKiMX8TMGDoX850ckGoHM6EHk3GSi XrLT8xdm2YLiykQGUsCzwVEqw1NLxjIP9OlASrwAJkMQOnBUFMAqHbF9rcx8JjVrnaNIZWYCzzWA7Th6 VudCAxDQo+Wv4QCD9md1YmPPpgKSKhHK7yqr5HHNaSZkAzW6FktRjdNRohGZQzcCHPsBJkqtUSyASyNM JGZKJgsOB7LtG4CtUaJkCgCDF9SYFuQK8uJRkfQP2A YWP0HXjsPKQyFNHbA5zBPkTyKChvWZCfiRbuDD2AHiHuT3NdcuWswHUyUkItTTGYIt2+DQplbmRvYmoN DiL5GRVng5ZoSGv8DI5AOYKsKJsdKC5QTJYraT3sZYulJW9SXvTjKZJvNSLVZxZdG96qgWTkSLe2G6Vo YmVkZGVkRmlsZXMgPDwvTmFtZXMgWyBdDQogID4+ID 4+CLpqHZ7FVPkctpTqAURbIv5VZJNwVISeKE5hWBFjPBJfB1V6uPijTBGMLcSkS5ikgcfgGX7nVXTfS3 91wEnzhpWdUCT4ZKIbNm5DCJLmMDS3GHGezWDsXjOgUAGPQZcrVE9HrFWhEUZ9vY2hTLkwOHNqOPSrM0 hVSjLldZoxGE26dKdsddZomDNaAAu+Xg0SMN7hz9Qs MRd0tsFpVRbtHPZmMQekQVWhCFJgMVVxEBD0HHJ9ACCNBkXzXMIxUKBkIFffXCAlSLOqts8CPDAwIOSe ACA9UKPxPLCcRELnGCeiEFLiHJQfPWRgFXQdEACjOS9DRiSsUUUnEQRxNKxzQMRjRMVmzn9JKNMbHLEz RgOtMbNsIIAsCQIbEWyyVKXoXBZsGaV2VHKtTQQmOT 2XOeZaOYIoEIE8BpgcKELtVCEorf9BYXFwZSRvAVN8SIEbNOMcCZZrUHqoLCFyRFY4EWAjUXEqAOYwJL 5JKbCuPERkDXulSfblRHOnFPOdsb3FAPWsIVTjCAY6LNHbAWKxXQHfAHpkLNIbEKV3MMntDSRfSNFnJZ 2TLvBqEURkKFC9FpToSBHuXRAoxv6AWLSqYIPrSIOk TqExIAJxPQBrFRyePVLqUTQhJYYsJZGbAEVxZI5ZAxBcNSYdUVM4ZNOeZSLcHAAuss5AYCXtJPBzEFp5 MrBuLWTiLJYzUIxgRFLeXFFdQHDoUCWlVNRgEJ8KKpVvZAGsHgK9NVelAWJpOLJqjm4ABHShJTRaZMcf ZARiQNSkPSSsQXgrPLTkXEZ6RTP8RCGwTQCaCZ2ASs GqMEZoQxBbGpToJWAgRENslm9NKBNjWKJsQFMaPMOnUPYgNKLsRIgqUIOvQVT9BxFdROXvLHKsTD6IWl PtSDYgWqF0PDFiUDDlRCYrjw7FPVQhVTGeEnaoNqItVFShPSDyWThfPPWuXXB5Kus3DEWnSVUiOY6DLu GzOJMhZif3MOgpGZXvVPAyab1XAUOrCZXeTFHjChIp TTPnJTFyWIvwOEXbZPZ8ICb6HSUvWCHhPX6ZUqZkHVVpVbrsUPmgLWHyICUnvq8EDLKoDLIuBIIdUwDw QYDeYQKlHXxrTPIpMFNqLnh6KTHfSOTkAA9PFgNpVFVfRsE2XaSxDAIaXHPulu2TVKDtJJTbIBS8YATm KVEpELTbZFjmMKFmPTJvQJIkKROsGZTyEJ8UQgIfGT CjBoW2VKSbLRXlKUQbju0LASCpYHLsRdG7AZPjGKUtAGZpEUswXBZfXWTpKem0STNtDOLoNR9FHjSyXC dlPKVWLwm1BCyzZ9x0YPY5XE2MI6Hrf7BsIfhmNVELLQrxMM6kcuEuACHpFw1DE8lQLcaoPLTpESquBU ZuRASuWbIsUdC4ZINcNbF9XWC7UcemTP7mQPE4ANX5 XRHiP7HaLxOaWfZeXro0AtGwOWUgQzBhGgK1VmVsBZ6IEn9QHeQ7MAZ4aWVbJv2TZbSgWhkDZqBpVF3O DQo= ID Date Data Source [id number] 03/22/2021 08:28:35 PM EDT [facility] Name Value Range Interpretation Code Description Data Arabella rce(s) Supporting Document(s) Progress Note [facility] DNSFAb7dBoZKWaZi20/HZGmcVJCsf6EwPBifKSe7CQyjJWUcM6XsWYR3rX7qYAB6UPrRLkBbZhFnNSP2 lbm RqLrmLLjPlVFVsCnwQBxJxEEisRgjrrFLjKP7IiUZ2YEEaY10iTCYuIQEsC7OdFNN1PJW+Uz9KXKQpfT UsFE8DFmrI4Vxcz+W7WI3dGN4AeRYvMZ6gZSiePxtEl6Whrg6ZMVDhufFQDVRlLcpQxCl827r4FYmfVu bgipclXO1iD7V+u9/+kZHTDMt8mhIC31Viwa+vv4YR Z8M5+/orVk/z+Hpa/XWWKga0S93pSOQ/fl2zL0fre/yNp9R48t/rwQmTgWAnkROw/ujobBr/2Pw85gTq GNWQXlu22IDYAQzTKKfCc9f/Kzvvs+ymMV2rKB3b5YscUBPPoenF5vv8c7RxM5svGFQ2caUfTsA6OMbj 07IXOmT0pjMbSvFw4BbCVDxy1a388ztGI+fvIRTUuB U1Lc+JpIM+2hgrm0h8dnVspqVcYR7qpymqSo6k7LRVG2RoE7iWyYkkbzamnS9BON6cGkWT9Dr2ftvyhL ZgcK+z3hdcpZu4C4fwrslIaNZyQy9v7gVS/O4ROoJoSDIfAhSYV2mT4OeyRzGeuk/s/Zm5hzfGepzRd6 8fjtVsPxTBp0kc/RLl++GYRbbIOhaeFlxBUc3ph3yx mFddq7gls2Kw9frLb0frlg+i38fraa1M/EF2CsP9hEZzV+4DCcJeBCo0IVB4CwE5GdIpSzCGeW9v/ARNAUD [file] ID Date Data Source [id number] 03/22/2021 06:09:00 PM EDT [facility] TSYSORDER [id number] Name Value Range Interpretation Code Description Data Arabella rce(s) Supporting Document(s) URINE COLOR. [facility] URINE APPEARANCE CLEAR [facility] l URINE GLUCOSE (UA) NEGATIVE mg/dL NEGATIVE [facility] URINE BILIRUBIN NEGATIVE NEGATIVE [facility] URINE KETONE 5(TRACE) mg/dL [facility] SPECIFIC GRAVITY,URINE 1.015 1.005-1.030 [facility] URINE BLOOD NEGATIVE NEGATIVE [facility] PH,URINE 7.5 5.0-9.0 [facility] URINE PROTEIN NEGATIVE mg/dL NEGATIVE [facility] URINE UROBILINOGEN NORMAL(0.2-1) mg/dL 0-1 [facility] URINE NITRATE NEGATIVE NEGATIVE [facility] URINE LEUKOCYTE ESTERASE NEGATIVE NEGATIVE [facility] ID Date Data Source [id number] 03/22/2021 05:30:00 PM EDT [facility] Name Value Range Interpretation Code Description Data Arabella rce(s) Supporting Document(s) COVID-19 NEGATIVE [facility] This lab was ordered by [facility] and reported by [facility]. ID Date Data Source [id number] 03/22/2021 06:06:00 PM EDT [facility] TSYSORDER [id number] Name Value Range Interpretation Code Description Data Arabella rce(s) Supporting Document(s) COVID-19 NEGATIVE NEGATIVE [facility] Negative results should be treated as pr [...] are for the indentification of SARS-CoV-2 RNA. PrtOTJX-OdT-3 RNA is generally detectable in respiratorysamples during the actue phase of infection. ID Date Data Source [id number] 03/22/2021 04:58:00 PM [facility]T [facility] DATE OF EXAMINATION: 03/22/2021 14:46 [...] rce(s) Supporting Document(s) ID Date Data Source [id number] 03/22/2021 03:33:00 PM EDT [facility] l TSYSORDER [id number] Name Value Range Interpretation Code Description Data Arabella rce(s) Supporting Document(s) LACTIC ACID 0.9 mmol/L 0.4-2.0 [facility] ID Date Data Source [id number] 03/22/2021 03:31:00 PM EDT [facility] l TSYSORDER [id number] Name Value Range Interpretation Code Description Data [facility] rce(s) Supporting Document(s) GLUCOSE 88 mg/dL 74-106 [facility] BLOOD UREA NITROGEN 11 mg/dL 7-18 [facility] ital CREATININE 0.71 mg/dL 0.6-1.0 [facility] SODIUM 139 mmol/L 136-145 [facility] POTASSIUM 4.2 mmol/L 3.5-5.1 [facility] CHLORIDE 105 mmol/L 98-107 [facility] CO2 23 mmol/L 21-32 [facility] CALCIUM 9.2 mg/dL 8.5-10.1 [facility] ANION GAP 11.0 mmol/L 5-12 [facility] GLOMERULAR FILTRATION RATE >90 mL/min [facility] GFR IS CALCULATED IN mL/min/1.73m2 JUDITH L FUNCTION: >90MILDLY DECREASED: 60-89MILDY TO MODERATELY DECREASED: 45-59 MODERATELY TO SEVERELY DECREASED: 30-44SEVERELY DECREASED: 15-29RENAL FAILURE: <15 AST 20 U/L 15-37 [facility] ALT 20 U/L 12-78 [facility] ALKALINE PHOSPHATASE 70 U/L 46-116 [facility] pital TOTAL BILIRUBIN 1.0 mg/dL 0.2-1.0 [facility] TOTAL PROTEIN 7.6 g/dl 6.4-8.2 [facility] ALBUMIN 3.4 gm/dL 3.4-5.0 [facility] ID Date Data Source [id number] 03/22/2021 03:31:00 PM EDT [facility] l TSYSORDER [id number] Name Value Range Interpretation Code Description Data Arabella rce(s) Supporting Document(s) LIPASE 117 U/L 73-393 [facility] ID Date Data Source [id number] 03/22/2021 03:24:00 PM EDT [facility] al TSYSORDER [id number] Name Value Range Interpretation Code Description [facility]) HCG,SERUM NEGATIVE NEGATIVE [facility] False negative results may occur when th e levels of hCG arebelow the sensitivity level of the test. If isstill suspected, a first morning urine specimen should becollected 48hrs later.This test has a sensitivity of 10mIU/mL in serum nfz37qSM/mL in urine. ID Date Data Source [id number] 03/22/2021 03:10:00 PM EDT [facility] l TSYSORDER [id number] Name Value Range Interpretation Code Description Data [facility](s) Supporting Document(s) WHITE BLOOD COUNT 6.3 K/mm3 4.0-10.0 [facility] al RED BLOOD COUNT 3.90 M/mm3 4.00-5.50 L [facility] HEMOGLOBIN 10.2 gm/dL 12.0-16.0 L [facility] HEMATOCRIT 31.5 % 36.0-48.8 L [facility] MEAN CELL VOLUME 80.8 fl 80-96 [facility] MEAN CORPUSCULAR HEMOGLOBIN 26.2 pg 27.0-31.0 L [facility] MEAN CORPUSCULAR HGB CONC 32.4 g/dl 32.0-36.0 [facility] RED CELL DISTRIBUTION WIDTH 16.4 % 10.0-14.5 H [facility] PLATELET COUNT 146 K/mm3 172-450 L [facility] MEAN PLATELET VOLUME 12.1 fl 9.0-13.0 [facility] pital GRAN % 60.8 % 50-80.0 [facility] IG% 0.2 % 0.0-0.2 [facility] LYMPH % 30.7 % 25.0-50.0 [facility] MONO % 6.7 % 2.0-10.0 [facility] EOS % 1.0 % 0-5.0 [facility] BASO % 0.6 % 0.0-2.0 [facility] GRAN # 3.8 K/mm3 2.0-8.00 [facility] IG# 0.0 K/mm3 0.0-0.2 [facility] LYMPH # 1.9 K/mm3 1.0-5.0 [facility] MONO # 0.4 K/mm3 0.10-1.20 [facility] EOS # 0.1 K/mm3 0.0-0.5 [facility] BASO # 0.0 K/mm3 0.0-0.2 [facility] ID Date Data Source [id number] 03/19/2021 08:43:00 AM EDT [facility] l DATE OF EXAMINATION: 03/19/2021 8:12 [...] Data Source CT ABD/PEL NO CONTRAST - [id number] 03/19/2021 12:00:00 AM EDT eC W1 ([facility]) Name Value Range Interpretation Code Description Data Arabella rce(s) Supporting Document(s) CT ABD/PEL NO CONTRAST - [id number] eCW1 ([facility]) ID Date Data Source [id number] 03/10/2021 04:36:00 PM EDT [facility] [...] rce(s) Supporting Document(s) ID Date Data Source [id number] 03/10/2021 04:50:00 PM EDT [facility] l Name Value Range Interpretation Code Description Data Arabella rce(s) Supporting Document(s) FERRITIN 7 ng/mL 8-252 L [facility] ID Date Data Source [id number] 03/10/2021 04:50:00 PM EDT [facility] Name Value Range Interpretation Code Description Data Arabella rce(s) Supporting Document(s) IRON 38 ug/dL 50-170 L [facility] TIBC 429 ug/dL 250-450 [facility] % SATURATION 9 % 20-50 [facility] ID Date Data Source [id number] 03/10/2021 04:50:00 PM EDT [facility] l Name Value Range Interpretation Code Description Data Arabella rce(s) Supporting Document(s) TROPONIN-HIGH SENSITIVITY < 4.0 ng/L 0-60.4 [facility] ID Date Data Source [id number] 03/10/2021 04:50:00 PM EDT [facility] l Name Value Range Interpretation Code Description Data Arabella rce(s) Supporting Document(s) CKMB 1.3 ng/ml 0.0-3.6 [facility] ID Date Data Source [id number] 03/10/2021 04:50:00 PM EDT [facility] l Name Value Range Interpretation Code Description Data Arabella rce(s) Supporting Document(s) GLUCOSE 89 mg/dL 74-106 [facility] BLOOD UREA NITROGEN 11 mg/dL 7-18 [facility] ital CREATININE 0.85 mg/dL 0.6-1.0 [facility] SODIUM 138 mmol/L 136-145 [facility] POTASSIUM 4.2 mmol/L 3.5-5.1 [facility] CHLORIDE 104 mmol/L 98-107 [facility] CO2 27 mmol/L 21-32 [facility] CALCIUM 8.7 mg/dL 8.5-10.1 [facility] ANION GAP 7.0 mmol/L 5-12 [facility] GLOMERULAR FILTRATION RATE 75 mL/min [facility] GFR IS CALCULATED IN mL/min/1.73m2 JUDITH L FUNCTION: >90MILDLY DECREASED: 60-89MILDY TO MODERATELY DECREASED: 45-59 MODERATELY TO SEVERELY DECREASED: 30-44SEVERELY DECREASED: 15-29RENAL FAILURE: <15 AST 15 U/L 15-37 [facility] ALT 20 U/L 12-78 [facility] ALKALINE PHOSPHATASE 80 U/L 46-116 [facility] pital TOTAL BILIRUBIN 0.5 mg/dL 0.2-1.0 [facility] TOTAL PROTEIN 7.8 g/dl 6.4-8.2 [facility] ALBUMIN 3.5 gm/dL 3.4-5.0 [facility] ID Date Data Source [id number] 03/10/2021 04:50:00 PM EDT [facility] Name Value Range Interpretation Code Description Data Arabella rce(s) Supporting Document(s) FREE T4 0.4 ng/dL 0.76-1.46 L [facility] ID Date Data Source [id number] 03/10/2021 04:50:00 PM EDT [facility] Name Value Range Interpretation Code Description Data Arabella rce(s) Supporting Document(s) TSH 27.184 uIU/mL 0.360-3.740 H [facility] ID Date Data Source [id number] 03/10/2021 04:22:00 PM EDT [facility] l Name Value Range Interpretation Code Description Data Arabella rce(s) Supporting Document(s) WHITE BLOOD COUNT 6.9 K/mm3 4.0-10.0 [facility] 4.05 M/mm3 4.00-5.50 [facility] HEMOGLOBIN 10.4 gm/dL 12.0-16.0 L [facility] HEMATOCRIT 33.2 % 36.0-48.8 L [facility] MEAN CELL VOLUME 82.0 fl 80-96 [facility] MEAN CORPUSCULAR HEMOGLOBIN 25.7 pg 27.0-31.0 L [facility] MEAN CORPUSCULAR HGB CONC 31.3 g/dl 32.0-36.0 L [facility] RED CELL DISTRIBUTION WIDTH 16.2 % 10.0-14.5 H [facility] PLATELET COUNT 360 K/mm3 172-450 [facility] MEAN PLATELET VOLUME 10.3 fl 9.0-13.0 [facility] pital GRAN % 55.3 % 50-80.0 [facility] IG% 0.1 % 0.0-0.2 [facility] LYMPH % 34.2 % 25.0-50.0 [facility] MONO % 7.6 % 2.0-10.0 [facility] EOS % 2.2 % 0-5.0 [facility] BASO % 0.6 % 0.0-2.0 [facility] GRAN # 3.8 K/mm3 2.0-8.00 [facility] IG# 0.0 K/mm3 0.0-0.2 [facility] LYMPH # 2.4 K/mm3 1.0-5.0 [facility] MONO # 0.5 K/mm3 0.10-1.20 [facility] EOS # 0.2 K/mm3 0.0-0.5 [facility] BASO # 0.0 K/mm3 0.0-0.2 [facility] ID Date Data Source [id number] 03/10/2021 04:59:00 PM EDT [facility] FAX [phone] Name Value Range Interpretation Code Description Data Arabella rce(s) Supporting Document(s) LITHIUM < 0.20 mmol/L 0.6-1.20 L [facility] ID Date Data Source FERRITIN 03/10/2021 12:00:00 AM EDT eCW1 ([facility]) Name Value Range Interpretation Code Description Data Arabella rce(s) Supporting Document(s) 7 4-252 FERRITIN eCW1 ([facility]) ID Date Data Source IRON PROFILE 03/10/2021 12:00:00 AM EDT eCW1 ([facility]) Name Value Range Interpretation Code Description Data Arabella rce(s) Supporting Document(s) 429 250-450 TIBC eCW1 ([facility]) 38 50-170 IRON eCW1 ([facility]) 9 20-50 % SATURATION eCW1 ([facility]) ID Date Data Source CBC W/DIFF 03/10/2021 12:00:00 AM EDT eCW1 ([facility]) Name Value Range Interpretation Code Description Data Arabella rce(s) Supporting Document(s) 10.4 12.0-16.0 HEMOGLOBIN eCW1 ([facility]) 4.05 4.00-5.50 RED BLOOD COUNT eCW1 ([facility]) 6.9 4.0-10.0 WHITE BLOOD COUNT eCW1 ([facility]) 25.7 27.0-31.0 MEAN CORPUSCULAR HEMOGLOB IN eCW1 ([facility]) 82.0 80-96 MEAN CELL VOLUME eCW1 ([facility]) 33.2 36.0-48.8 HEMATOCRIT eCW1 ([facility]) 31.3 32.0-36.0 MEAN CORPUSCULAR HGB CONC eCW1 ([facility]) 16.2 10.0-14.5 RED CELL DISTRIBUTION WID TH eCW1 ([facility]) 360 172-450 PLATELET COUNT eCW1 ([facility]) 34.2 25.0-50.0 LYMPH % eCW1 ([facility]) 7.6 2.0-10.0 MONO % eCW1 ([facility]) 10.3 9.0-13.0 MEAN PLATELET VOLUME eCW1 ([facility]) 55.3 50-80.0 GRAN % eCW1 ([facility]) 0.6 0.0-2.0 BASO % eCW1 ([facility]) 3.8 2.0-8.00 GRAN # eCW1 ([facility]) 2.2 0-5.0 EOS % eCW1 ([facility]) 0.2 0.0-0.5 EOS # eCW1 ([facility]) 2.4 1.0-5.0 LYMPH # eCW1 ([facility]) 0.5 0.10-1.20 MONO # eCW1 ([facility]) 0.0 0.0-0.2 BASO # eCW1 ([facility]) ID Date Data Source CHEST 2 VIEWS 03/10/2021 12:00:00 AM EDT eCW1 ([facility]) Name Value Range Interpretation Code Description Data Arabella rce(s) Supporting Document(s) CHEST 2 VIEWS eCW1 ([facility]) ID Date Data Source FREE T4 03/10/2021 12:00:00 AM EDT eCW1 ([facility]) Name Value Range Interpretation Code Description Data Arabella rce(s) Supporting Document(s) 0.4 0.76-1.46 FREE T4 eCW1 ([facility]) ID Date Data Source TSH 03/10/2021 12:00:00 AM EDT [facility]CW1 [facility] [facility]) Name Value Range Interpretation Code Description Data Arabella rce(s) Supporting Document(s) 27.184 0.360-3.740 TSH eCW1 ([facility]) ID Date Data Source [id number] 03/10/2021 12:00:00 AM EDT eCW1 ([facility]) Name Value Range Interpretation Code Description Data Arabella rce(s) Supporting Document(s) 1.3 0.0-3.6 [facility] eCW1 ([facility]) ID Date Data Source [id number] 01/30/2021 08:06:00 AM EDT [facility] Name Value Range Interpretation Code Description Data Arabella rce(s) Supporting Document(s) Folate (Folic Acid), Serum 8.6 ng/mL >3.0 [facility] A serum folate concentration of less simi n 3.1 ng/mL isconsidered to represent clinical deficiency. ID Date Data Source [id number] 01/30/2021 08:06:00 AM EDT [facility] Name Value Range Interpretation Code Description Data Arabella rce(s) Supporting Document(s) Vitamin B12 351 pg/mL [id number] [facility] ID Date Data Source [id number] 01/30/2021 08:06:00 AM EDT [facility] l Name Value Range Interpretation Code Description Data Arabella rce(s) Supporting Document(s) FOLATE (FOLIC ACID), SERUM 8.6 ng/mL >3.0 [facility] A serum folate concentration of less simi n 3.1 ng/mL isconsidered to represent clinical deficiency. ID Date Data Source [id number] 01/30/2021 08:06:00 AM EDT [facility] Name Value Range Interpretation Code Description Data Arabella rce(s) Supporting Document(s) VITAMIN B12 351 pg/mL [id number] [facility] Performed at: RN - [facility] [place] [id number] Director: Sharmaine Siddiqui MD, Phone: [phone] ID Date Data Source [id number] 01/29/2021 03:33:00 PM EDT [facility] Name Value Range Interpretation Code Description Data Arabella rce(s) Supporting Document(s) IRON 31 ug/dL 50-170 [facility] TIBC 462 ug/dL 250-450 H [facility] % SATURATION 7 % 20-50 [facility] ID Date Data Source [id number] 01/15/2021 01:59:00 PM EDT [facility] DATE OF EXAMINATION: 01/15/2021 11:42 [...] rce(s) Supporting Document(s) ID Date Data Source [id number] 01/15/2021 12:37:00 PM EDT [facility] [...] rce(s) Supporting Document(s) ID Date Data Source [id number] 01/15/2021 11:52:00 AM EDT [facility] Name Value Range Interpretation Code Description Data Arabella rce(s) Supporting Document(s) WHITE BLOOD COUNT 6.3 K/mm3 4.0-10.0 [facility]LOOD [facility] 3.71 M/mm3 4.00-5.50 L [facility] l HEMOGLOBIN 9.7 gm/dL 12.0-16.0 L [facility] HEMATOCRIT 30.5 % 36.0-48.8 L [facility] MEAN CELL VOLUME 82.2 fl 80-96 [facility] MEAN CORPUSCULAR HEMOGLOBIN 26.1 pg 27.0-31.0 L [facility] MEAN CORPUSCULAR HGB CONC 31.8 g/dl 32.0-36.0 L [facility] RED CELL DISTRIBUTION WIDTH 13.7 % 10.0-14.5 [facility] PLATELET COUNT 255 K/mm3 172-450 [facility] MEAN PLATELET VOLUME 10.9 fl 9.0-13.0 [facility] pital GRAN % 53.2 % 50-80.0 [facility] IG% 0.0 % 0.0-0.2 [facility] LYMPH % 35.0 % 25.0-50.0 [facility] MONO % 9.1 % 2.0-10.0 [facility] EOS % 2.1 % 0-5.0 [facility] BASO % 0.6 % 0.0-2.0 [facility] GRAN # 3.4 K/mm3 2.0-8.00 [facility] IG# 0.0 K/mm3 0.0-0.2 [facility] LYMPH # 2.2 K/mm3 1.0-5.0 [facility] MONO # 0.6 K/mm3 0.10-1.20 [facility] EOS # 0.1 K/mm3 0.0-0.5 [facility] BASO # 0.0 K/mm3 0.0-0.2 [facility] ID Date Data Source [id number] 01/15/2021 12:35:00 PM EDT [facility] Name Value Range Interpretation Code Description Data Arabella rce(s) Supporting Document(s) ERYTHROCYTE SEDIMENTATION RATE 70 mm/hr 0-20 H [facility] ID Date Data Source [id number] 01/15/2021 12:10:00 PM EDT [facility] l Name Value Range Interpretation Code Description Data Arabella rce(s) Supporting Document(s) FREE T4 0.5 ng/dL 0.76-1.46 [facility] ID Date Data Source [id number] 01/15/2021 12:10:00 PM EDT [facility] l Name Value Range Interpretation Code Description Data Arabella rce(s) Supporting Document(s) TSH 19.669 uIU/mL 0.360-3.740 H [facility] ID Date Data Source [id number] 01/15/2021 11:59:00 AM EDT [facility] Name Value Range Interpretation Code Description Data Arabella rce(s) Supporting Document(s) GLUCOSE 72 mg/dL 74-106 [facility] BLOOD UREA NITROGEN 14 mg/dL 7-18 [facility] ital CREATININE 0.83 mg/dL 0.6-1.0 [facility] SODIUM 138 mmol/L 136-145 [facility] POTASSIUM 4.5 mmol/L 3.5-5.1 [facility] CHLORIDE 104 mmol/L 98-107 [facility] CO2 27 mmol/L 21-32 [facility] CALCIUM 8.8 mg/dL 8.5-10.1 [facility] ANION GAP 7.0 mmol/L 5-12 [facility] GLOMERULAR FILTRATION RATE 77 mL/min [facility] GFR IS CALCULATED IN mL/min/1.73m2 JUDITH L FUNCTION: >90MILDLY DECREASED: 60-89MILDY TO MODERATELY DECREASED: 45-59 MODERATELY TO SEVERELY DECREASED: 30-44SEVERELY DECREASED: 15-29RENAL FAILURE: <15 AST 16 U/L 15-37 [facility] ALT 23 U/L 12-78 [facility] ALKALINE PHOSPHATASE 76 U/L 46-116 [facility] pital TOTAL BILIRUBIN 0.5 mg/dL 0.2-1.0 [facility] TOTAL PROTEIN 6.9 g/dl 6.4-8.2 [facility] ALBUMIN 3.5 gm/dL 3.4-5.0 [facility] ID Date Data Source Urinalysis, Routine 01/15/2021 12:00:00 AM EDT eCW1 ([facility]) Name Value Range Interpretation Code Description Data Arabella rce(s) Supporting Document(s) Color of Urine Ellen Urine-Color eCW1 ([facility]) Microscopic Examination eCW1 ( [facility]) Specific gravity of Urine 1.025 Specific G ravity eCW1 ([facility]) Appearance of Urine Clear Appearance eCW1 ([facility]) pH of Urine by Test strip 5 pH eCW1 ([facility]) Glucose [Presence] in Urine NEG Glucose eCW1 ([facility]) Protein [Presence] in Urine by Test strip NEG Protein eCW1 ([facility]) Bilirubin.total [Presence] in Urine by Test strip NEG Bilirubin eCW1 ([facility]) Hemoglobin [Presence] in Urine by Test strip NEG Occult Blood eCW1 ([facility]) Nitrite [Presence] in Urine by Test strip NEG Nitrite, Urine eCW1 ([facility]) Urobilinogen [Mass/volume] in Urine by Test strip NEG Urobilinogen,Semi-Qn eCW1 ([facility]) Ketones [Presence] in Urine by Test strip NEG Ketones eCW1 ([facility]) Urinalysis Gross Exam eCW1 ([facility]) Leukocyte esterase [Presence] in Urine by Test strip NEG WBC Esterase eCW1 ([facility]) Procedure Social History Code Duration Value Status Description Data Source(s ) Smoking 05/05/2021 12:00:00 AM EDT Current Smoker completed Curre nt Smoker eCW1 ([facility]) Smoking 05/05/2021 12:00:00 AM EDT Current Smoker completed Curre nt Smoker eCW1 ([facility]) Smoking 05/05/2021 12:00:00 AM EDT Current Smoker completed Curre nt Smoker eCW1 ([facility]) Alcohol intake 05/02/2021 12:00:00 AM EDT Ex-drinker (finding) comp leted Ex- drinker (finding) [facility] Tobacco use and exposure 05/02/2021 12:00:00 AM EDT Never used co mpleted Never used [facility] Smoking 05/02/2021 12:00:00 AM EDT Former smoker completed Former smoker [facility] Alcohol intake 04/25/2021 12:00:00 AM EDT Ex-drinker (finding) comp leted Ex- drinker (finding) [facility] Smoking 03/10/2021 12:00:00 AM EDT Current Smoker completed Curre nt Smoker eCW1 ([facility]) Smoking 03/10/2021 12:00:00 AM EDT Current Smoker completed Curre nt Smoker eCW1 ([facility]) Smoking 03/10/2021 12:00:00 AM EDT Current Smoker completed Curre nt Smoker eCW1 ([facility]) Smoking 03/10/2021 12:00:00 AM EDT Current Smoker completed Curre nt Smoker eCW1 ([facility]) Smoking 03/10/2021 12:00:00 AM EDT Current Smoker completed Curre nt Smoker eCW1 ([facility]) Smoking 03/10/2021 12:00:00 AM EDT Current Smoker completed Curre nt Smoker eCW1 ([facility]) Smoking 02/21/2021 12:00:00 AM EDT Current Smoker completed Curre nt Smoker eCW1 ([facility]) Smoking 02/13/2021 12:00:00 AM EDT Current Smoker completed Curre nt Smoker eCW1 ([facility]) Smoking 01/31/2021 12:00:00 AM EDT Current Smoker completed Curre nt Smoker eCW1 ([facility]) Smoking 01/29/2021 12:00:00 AM EDT Current Smoker completed Curre nt Smoker eCW1 ([facility]) Smoking 01/29/2021 12:00:00 AM EDT Current Smoker completed Curre nt Smoker eCW1 ([facility]) Smoking 01/29/2021 12:00:00 AM EDT Current Smoker completed Curre nt Smoker eCW1 ([facility]) Smoking 01/15/2021 12:00:00 AM EDT Current Smoker completed Curre nt Smoker eCW1 ([facility]) Smoking 01/15/2021 12:00:00 AM EDT Current Smoker completed Curre nt Smoker eCW1 ([facility]) Smoking 01/15/2021 12:00:00 AM EDT Current Smoker completed Curre nt Smoker eCW1 ([facility]) Smoking 01/15/2021 12:00:00 AM EDT Current Smoker completed Curre nt Smoker eCW1 ([facility]) Smoking 01/15/2021 12:00:00 AM EDT Current Smoker completed Curre nt Smoker eCW1 ([facility]) 03/20/2021 12:00:00 AM EDT Smoker completed Smoker [facility] 03/20/2021 12:00:00 AM EDT Current smoker completed Curre nt smoker [facility] Vital Signs ID Date Data Source UNK Name Value Range Interpretation Code Description Data Source(s) Body temperature 36.22 Jayde 36.22 Jayde [facility] Respiratory rate 18 /min 18 /min [facility] Oxygen saturation in Arterial blood by Pulse oximetry 99 % 99 % [facility] Systolic blood pressure 107 mm[Hg] 107 mm[Hg] Health system Diastolic blood pressure 63 mm[Hg] 63 mm[Hg] [facility] Heart rate 50 /min 50 /min [facility] Body height 174 cm 174 cm [facility] Body weight 77.111 kg 77.111 kg [facility] Body mass index (BMI) [Ratio] 25.47 kg/m2 25.47 kg/m2 [facility] Systolic blood pressure 104 mm[Hg] 104 mm[Hg] Health system Diastolic blood pressure 70 mm[Hg] 70 mm[Hg] [facility] Heart rate 46 /min 46 /min [facility] Body temperature 36.17 Jayde 36.17 Jayde [facility] Respiratory rate 16 /min 16 /min [facility] Oxygen saturation in Arterial blood by Pulse oximetry 99 % 99 % [facility] Body height 172 cm 172 cm [facility] Body weight 80.287 kg 80.287 kg [facility] Body mass index (BMI) [Ratio] 27.14 kg/m2 27.14 kg/m2 [facility] Systolic blood pressure 92 mm[Hg] 92 mm[Hg] Health system Diastolic blood pressure 59 mm[Hg] 59 mm[Hg] [facility] Heart rate 64 /min 64 /min [facility] Respiratory rate 16 /min 16 /min [facility] Oxygen saturation in Arterial blood by Pulse oximetry 97 % 97 % [facility] Body temperature 36.78 Jayde 36.78 Jayde [facility] Body height 172 cm 172 cm [facility] Body weight 82 kg 82 kg [facility] Body mass index (BMI) [Ratio] 27.72 kg/m2 27.72 kg/m2 [facility] Diastolic blood pressure 59 mm[Hg] 59 mm[Hg] DAVID ([facility]) Body height 69 [in_i] 69 [in_i] DAVID ([facility]) Body mass index (BMI) [Ratio] 26.5 kg/m2 26.5 k g/m2 DAVID ([facility]) Systolic blood pressure 97 mm[Hg] 97 mm[Hg] A THENA ([facility]) Body weight 179.2 [lb_av] 179.2 [lb_av] DAVID ([facility]) Diastolic blood pressure 59 mm[Hg] 59 mm[Hg] DAVID ([facility]) Body height 69 [in_i] 69 [in_i] DAVID ([facility]) Body mass index (BMI) [Ratio] 26.5 kg/m2 26.5 k g/m2 DAVID ([facility]) Systolic blood pressure 97 mm[Hg] 97 mm[Hg] A THENA ([facility]) Body weight 179.2 [lb_av] 179.2 [lb_av] DAVID ([facility]) Body height 68 [in_i] 68 [in_i] eCW1 ([facility]) Body weight 179.6 [lb_av] 179.6 [lb_av] eCW1 ([facility]) Body mass index (BMI) [Ratio] 27.31 kg/m2 27.31 kg/m2 eCW1 ([facility]) Body temperature 98.8 [degF] 98.8 [degF] eCW1 ( [facility]) Heart rate 86 /min 86 /min eCW1 ([facility]) Respiratory rate 18 /min 18 /min eCW1 ([facility]) Oxygen saturation in Arterial blood by Pulse oximetry 100 % 100 % eCW1 ([facility]) Body height 68 [in_i] 68 [in_i] eCW1 ([facility]) Body weight 180.6 [lb_av] 180.6 [lb_av] eCW1 ([facility]) Body mass index (BMI) [Ratio] 27.46 kg/m2 27.46 kg/m2 eCW1 ([facility]) Body temperature 98.2 [degF] 98.2 [degF] eCW1 ( [facility]) Heart rate 92 /min 92 /min eCW1 ([facility]) Respiratory rate 18 /min 18 /min eCW1 ([facility]) Oxygen saturation in Arterial blood by Pulse oximetry 100 % 100 % eCW1 ([facility]) Body height 68 [in_i] 68 [in_i] eCW1 ([facility]) Body weight 182.4 [lb_av] 182.4 [lb_av] eCW1 ([facility]) Body mass index (BMI) [Ratio] 27.73 kg/m2 27.73 kg/m2 eCW1 ([facility]) Body temperature 98.4 [degF] 98.4 [degF] eCW1 ( [facility]) Heart rate 78 /min 78 /min eCW1 ([facility]) Respiratory rate 18 /min 18 /min eCW1 ([facility]) Oxygen saturation in Arterial blood by Pulse oximetry 98 % 98 % eCW1 ([facility]) ID Date Data Source [id number] 03/22/2021 08:28:35 PM EDT [facility] Name Value Range Interpretation Code Description Data Source(s) TRANSFER FROM [facility] Patient Treatment Plan of Care Planned Activity Planned Date Details Description Data Source (s) Acetaminophen 325 MG / Hydrocodone Bitartrate 7.5 MG O ral Tablet 05/04/2021 12:00:00 AM EDT [facility] Misoprostol 0.2 MG Oral Tablet 05/04/2021 12:00:00 AM EDT [facility] Methylcellulose 500 MG Oral Tablet 03/27/2021 12:00:00 AM EDT [facility] Lactobacillus rhamnosus GG [id number] UNT Oral Capsul e 03/27/2021 12:00:00 AM EDT [facility] brexpiprazole 2 MG Oral Tablet [Rexulti] 03/19/2021 12:00:00 AM EDT eCW1 ([facility]) brexpiprazole 2 MG Oral Tablet [Rexulti] 03/19/2021 12:00:00 AM EDT eCW1 ([facility]) brexpiprazole 2 MG Oral Tablet [Rexulti] 03/19/2021 12:00:00 AM EDT eCW1 ([facility]) brexpiprazole 1 MG Oral Tablet [Rexulti] 03/19/2021 12:00:00 AM EDT eCW1 ([facility]) brexpiprazole 1 MG Oral Tablet [Rexulti] 03/19/2021 12:00:00 AM EDT eCW1 ([facility]) brexpiprazole 1 MG Oral Tablet [Rexulti] 03/19/2021 12:00:00 AM EDT eCW1 ([facility]) brexpiprazole 1 MG Oral Tablet [Rexulti] 03/19/2021 12:00:00 AM EDT eCW1 ([facility]) Maribel Carbonate 300 MG Oral Capsule 02/13/2021 12:00:00 AM EDT eCW1 ([facility]) Prazosin 1 MG Oral Capsule 02/13/2021 12:00:00 AM EDT eCW1 ([facility]) Levothyroxine Sodium 0.025 MG Oral Tablet 01/29/2021 12:00:00 AM ED T eCW1 ([facility]) 0.3 ML Epinephrine 1 MG/ML Auto-Injector [Epipen] 01/29/2021 12: 00:00 AM EDT eCW1 ([facility]) Levothyroxine Sodium 0.025 MG Oral Tablet 01/29/2021 12:00:00 AM ED T eCW1 ([facility]) 0.3 ML Epinephrine 1 MG/ML Auto-Injector [Epipen] 01/29/2021 12: 00:00 AM EDT eCW1 ([facility]) Levothyroxine Sodium 0.025 MG Oral Tablet 01/29/2021 12:00:00 AM ED T eCW1 ([facility]) 0.3 ML Epinephrine 1 MG/ML Auto-Injector [Epipen] 01/29/2021 12: 00:00 AM EDT eCW1 ([facility]) Misoprostol 0.2 MG Oral Tablet 08/04/2019 12:00:00 AM [facility] ferrous sulfate 325 MG Oral Tablet [facility] gabapentin 600 MG Oral Tablet [facility] quetiapine 25 MG Oral Tablet [Seroquel] DAVID ([facility]) Mirtazapine 15 MG Oral Tablet [Remeron] DAVID ([facility]) OneTouch Delica Lancets ATHE NA ([facility]) One Touch II Test strips ATH TENZIN ([facility]) Maribel Carbonate 300 MG Oral Capsule DAVID ([facility]) Hair, Skin and Nails Advanced DAVID ([facility]) Biotin 10 MG Oral Tablet ATH TENZIN ([facility]) quetiapine 25 MG Oral Tablet [Seroquel] DAVID ([facility]) Mirtazapine 15 MG Oral Tablet [Remeron] DAVID ([facility]) OneTouch Delica Lancets ATHE NA ([facility]) One Touch II Test strips ATH TENZIN ([facility]) Maribel Carbonate 300 MG Oral Capsule DAVID ([facility]) Hair, Skin and Nails Advanced DAVID ([facility]) Biotin 10 MG Oral Tablet ATH TENZIN ([facility])
== END 2021-05-25 22:35 | disposition left against medical advice (07) ==
LOC: M ED 21:46
DX: Z53.21 Procedure and treatment not carried out due to patient leaving prior to being seen by health care provider (principal)

== ENCOUNTER 2021-06-11 17:50 | Emergency (ER) | payer MEDICARE, MEDICAID ==
[~2021-06-11] VITALS: Ht 172.7 cm; Wt 86.4 kg
--- OUTSIDE RECORDS SUMMARY | 2021-06-11 17:58 | CCD ---
Author Author [facility] Organization [facility] Address Unknown Phone Unavailable Care Team Providers Care Paper Pattern Folder Name Role Phone Abida Gomez Unavailable PROBLEMS Type Condition ICD9-CM Code [id number] Code Onset Dates Condition S tatus W/U Status Risk SNOMED Code Notes Problem Hypothyroidism, unspecified type E03.9 Active conf irmed 32219339 Problem Migraine without status migr ainosus, not intractable, unspecified migraine type G43.909 Active confirmed 90264727 Problem Bipolar 1 disorder F31.9 Active confirmed 3 73394486 Problem Bleeding ulcer K27.4 Active confirmed 19613 000 Problem Crohn's disease with complic ation, unspecified gastrointestinal tract location K50.919 Active confirmed 55721253 Problem 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 Active confirmed 799999025 Problem History of gastrointestinal ulcer Z87.19 Active confirmed 054976881 Problem Cocaine abuse in remission F14.11 Active confirmed 071251224 Problem History of ulcer disease Z87.898 Active confirmed 753635831 Problem Normocytic hypochromic anemia D50.9 Active confirm ed 80595445 Problem Attention deficit hyperactivity disorder (ADHD), unspecified ADHD type F90.9 Active confirmed 179417356 Problem Schizoaffective disorder, unspecified type F25.9 Active confirmed 89622296 RULE OUT Problem Gastroesophageal reflux disease without esophagitis K21.9 Active confirmed 333001516 Problem Insomnia, unspecified type G47.00 Active confirmed 094166287 Problem Post-traumatic stress disorder, unspecified F43.10 Active confirmed 63160123 Problem BOOKER (generalized anxiety disorder) F41.1 Activ e confirmed 89752267 Problem Anxiety F41.9 Active confirmed 41947937 Problem Depression, unspecified depression type F32.9 Active confirmed 65571224 Problem Tobacco dependence F17.200 Active confirmed 36437128 Problem Other chronic pain G89.29 Active confirmed 8 6087778 Problem Hypoglycemia E16.2 Active confirmed 1158051 03 ALLERGIES Allergen (clinical drug ingredient) Drug/Non Drug Allergy do cumented on EMR Reaction Allergy Type Onset Date Status NSAIDS Unknown Non Drug Allergy Active rizatriptan Maxalt([facility] Code:[address]-82) anaphylaxis Drug Allergy Active Bees Anaphylaxis-Bakers Yeast Non Drug Allergy Active amitriptyline Amitriptyline HCl([facility] Code:[address]-00) Unknown Dr hernandez Allergy Active ENCOUNTERS from 1982 to 2021-05-28 Encounter Location Date Provider Diagnosis [address] [address] May, Abida Jason IMMUNIZATIONS No Information SOCIAL [...] Notes Start Da te End Date Status Multivitamin Adult - 1 tablet Orally Once a day for 30 day(s) Active ONE TOUCH TEST STRIPS as directed; E11.9 QD AND PRN for 90 days Active Zofran 4 MG 1 tablet Orally Once a day for 30 day(s) prn Active One Touch Delica Lancets as directed; E11.9 QD and prn for 90 days Active Zantac 150 MG 1 tablet at bedtime Orally Once a day for 30 day (s) Nov, Unknown Doxepin HCl 25 MG 1 capsule at bedtime Orally qhs Jul, Not-Taking Levothyroxine Sodium 50 MCG 1 tablet in the morning on an empty stomach Orally Once a day for 30 day(s) Jan, Active Biotin 10 MG 1 tablet Orally Once a day for 30 day(s) Unknown Prazosin HCl 1 MG 1 capsule at bedtime Orally Once a day for 30 days Feb, Active [place] Carbonate 300 MG 1 capsule Orally Twice a day for 30 day(s) Stopped this Feb, Not-Taking lamoTRIgine 25 MG 1 tablet Orally Once a day for 15 day(s) May, Active EpiPen 2-Sav 0.3 MG/0.3ML as directed Injection once for 2 days prn Jan, Active Remeron 15 MG TAKE ONE TABLET BY MOUTH FATIMAH RY EVENING orally once a day for 30 days Not-Taking miSOPROStol 200 MCG 1 tablet with meals and at b edtime Orally Four times a day for 30 day(s) Active Pantoprazole Sodium 40 MG 1 tablet Orally Twice a day for 30 day (s) Nov, Active Venlafaxine HCl ER 150 MG 1 capsule with food Orally Once a day for 30 day(s) Not-Taking One touch Ultra mini meter as dir; E11.9 up to 2x per day as needed for low blood sugar symptoms for 30 days Active Carafate 1 GM 1 tablet on an empty stomach Orally four times a day as needed for 30 days Active HYDROcodone-Acetaminophen 7.5-325 MG/15ML 5 ml as needed Orally fatimah ry 6 hrs Active Mirtazapine 15 MG 1 tablet at bedtime Orally Once a day for 30 days Active tiZANidine HCl 4 MG 1 tablet as needed Orally Three times a day for 30 days Active Hair Skin & Nails Gummies 1250-7.5-7.5 MCG-MG-UNT as directed Orally Unknown SEROquel 25 MG 1 tablet Orally twice daily as needed for 60 days Not-Taking Rexulti 2 MG 1 tablet Orally Once a day for 30 days Mar Active PROCEDURES No Information RESULTS No Results REASON FOR VISIT Medical records request MEDICAL (GENERAL) HISTORY Type Description Date [...] 03/14/2017 Surgical History Hysterectomy 2007 Surgical History colonoscopy-[facility] Surgical History EGD-[facility] 09/2018 Surgical History EGD-[facility] 01/2019 Surgical History EGD and C-scope 2019 Hospitalization History surgical purposes Hospitalization History upper GI bleed/severe stomach pain Hospitalization History upper GI bleed 02/2017 Hospitalization History upper gi bleed 11/2017 Hospitalization History abdominal pain x 8 days[facility] 10/2018 Hospitalization History [facility] GI bleed [facility] 04/28 21 Goals Section No Information Health Concerns No Information MEDICAL EQUIPMENT No Information MENTAL STATUS No Information FUNCTIONAL STATUS No Information ASSESSMENTS No Information PLAN OF TREATMENT Medication Medication Name Sig Start Date Stop Date Rexulti 2 MG 1 tablet Orally Once a day for 30 days Mar, lamoTRIgine 25 MG 1 tablet Orally Once a day for 15 day(s) 13 Oc 2020 Mirtazapine 15 MG 1 tablet at bedtime Orally Once a day for 30 d ays Prazosin HCl 1 MG 1 capsule at bedtime Orally Once a day f or 30 days Feb, tiZANidine HCl 4 MG 1 tablet as needed Orally Three times a day for 30 days One touch Ultra mini meter as dir; E11.9 up to 2x per day as needed for low blood sugar symptoms for 30 days ONE TOUCH TEST STRIPS as directed; E11.9 QD AND PRN for 90 days One Touch Delica Lancets as directed; E11.9 QD and prn for 90 da ys Next Appt Details Provider Name:Anna Marie Silverman 2021-06-02 0 2:00:00 PM, [address] [place] [address], [phone], Provider Name:Ragini Watts 2021-06-04 09:00:00 AM, [address] [place] [address], [phone], Provider Name:Anna Marie Silverman 2021-06-04 1 0:00:00 AM, [address] [place] [address], [phone], Insurance Providers Payer Name Payer Address Payer Phone Insured Name Patient Relati onship to Insured Coverage Start Date Coverage End Date [employer] - [employer] [address] [facility] [address] Ada Ayoub [facility] - MEDICAID [place] [facility] [facility] [address] [facility] [phone] Ada Ayoub [employer] - MEDICARE [place] [address] [facility] [id number] Ada Ayoub
--- OUTSIDE RECORDS SUMMARY | 2021-06-11 17:58 | CCD ---
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 Name Role Phone Abida Gomez Unavailable PROBLEMS Type Condition ICD9-CM Code LFB03-NI Code Onset Dates Condition S tatus W/U Status Risk SNOMED Code Notes Problem Hypothyroidism, unspecified type E03.9 Active conf irmed 37028345 Problem Migraine without status migr ainosus, not intractable, unspecified migraine type G43.909 Active confirmed 61926568 Problem Bipolar 1 disorder F31.9 Active confirmed 3 64693041 Problem Bleeding ulcer K27.4 Active confirmed 93978 000 Problem Crohn's disease with complic ation, unspecified gastrointestinal tract location K50.919 Active confirmed 11497141 Problem 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 Active confirmed 192774299 Problem History of gastrointestinal ulcer Z87.19 Active confirmed 225629349 Problem Cocaine abuse in remission F14.11 Active confirmed 809117643 Problem History of ulcer disease Z87.898 Active confirmed 843733722 Problem Normocytic hypochromic anemia D50.9 Active confirm ed 52665805 Problem Attention deficit hyperactivity disorder (ADHD), unspecified ADHD type F90.9 Active confirmed 903021836 Problem Schizoaffective disorder, unspecified type F25.9 Active confirmed 35464723 RULE OUT Problem Gastroesophageal reflux disease without esophagitis K21.9 Active confirmed 338916156 Problem Insomnia, unspecified type G47.00 Active confirmed 709191224 Problem Post-traumatic stress disorder, unspecified F43.10 Active confirmed 11691985 Problem BOOKER (generalized anxiety disorder) F41.1 Activ e confirmed 71434992 Problem Anxiety F41.9 Active confirmed 32849415 Problem Depression, unspecified depression type F32.9 Active confirmed 27146066 Problem Tobacco dependence F17.200 Active confirmed 35600669 Problem Other chronic pain G89.29 Active confirmed 8 1198537 Problem Hypoglycemia E16.2 Active confirmed 2864521 03 ALLERGIES Allergen (clinical drug ingredient) Drug/Non Drug Allergy do cumented on EMR Reaction Allergy Type Onset Date Status NSAIDS Unknown Non Drug Allergy Active rizatriptan Maxalt([facility] Code:[address]-34) anaphylaxis Drug Allergy Active Bees Anaphylaxis-Bakers Yeast Non Drug Allergy Active amitriptyline Amitriptyline HCl([facility] Code:[address]-72) Unknown Dr hernandez Allergy Active ENCOUNTERS from 1982 to 2021-05-28 Encounter Location Date Provider Diagnosis [address] [address] May, Abida Jason Hypoglycemia E16.2 IMMUNIZATIONS No Information SOCIAL HISTORY Tobacco Use: [...] a day for 30 days Feb, Active [place] Carbonate 300 MG 1 capsule Orally Twice [...] Information RESULTS No Results REASON FOR VISIT refill MEDICAL (GENERAL) HISTORY Type Description Date Medical History Obesity s/p gastric bypass Medical History Anxiety/Depression/PTSD Medical History Bipolar/ADHD Medical History Stomach ulcers Medical History ovarian cyst left side Medical History Crohn's Medical History Kaitlyn's Medical History [place] Medical History hysterectomy Medical History iron deficient Medical History Kaitlyn's disease Medical History Allergy to bee sting Surgical History L2-S1 spinal fusion-[place] 2009 Surgical History x 2 Surgical History gastric bypass 2010 Surgical History peptic ulcer perforation repair- Dr. Sinha 06/2016 Surgical History EGD 02/2017 Surgical History Gastric bypass revision/ulcer repair-Dr. Sullivan 03/14/2017 Surgical History Hysterectomy 2007 Surgical History colonoscopy-[facility] Surgical History EGD-[facility] 09/2018 Surgical History EGD-[facility] 01/2019 Surgical History EGD and C-scope 2019 Hospitalization History surgical purposes Hospitalization History upper GI bleed/severe stomach pain Hospitalization History upper GI bleed 02/2017 Hospitalization History upper gi bleed 11/2017 Hospitalization History abdominal pain x 8 days-[facility] 10/2018 Hospitalization History Upper GI bleed [facility] 04/28 21 Goals Section No Information Health Concerns No Information MEDICAL EQUIPMENT No Information MENTAL STATUS No Information FUNCTIONAL STATUS No Information ASSESSMENTS Encounter Date Diagnosis Assessment Notes Treatment Notes Treatm ent Clinical Notes May, Hypoglycemia (ICD-10 - E16.2) PLAN OF TREATMENT Medication Medication Name Sig Start Date Stop Date Rexulti 2 MG 1 tablet Orally Once a day for 30 days Mar, lamoTRIgine 25 MG 1 tablet Orally Once a day for 15 day(s) 13 Oc t, 2020 Mirtazapine 15 MG 1 tablet at [...] ys Next Appt Details Provider Name:Anna Marie Silverman, 2021-06-02 0 2:00:00 PM, [address] [place] [address], [phone], Provider Name:Ragini Watts 2021-06-04 09:00:00 AM, [address] [place] [address], [phone], Provider Name:Anna Marie Silverman 2021-06-04 1 0:00:00 AM, [address] [place] [address], [phone], Insurance Providers Payer Name Payer Address Payer Phone Insured Name Patient Relati onship to Insured Coverage Start Date Coverage End Date [employer] - MEDICAID [place] [employer] [facility] [facility] [address] [facility] [id number] Ada [facility]you[place] [facility] [employer] [address] [facility] [address] [place] [facility] [place] [address] [facility] [id number] Ada Ayoub
[2021-06-11] MEDS ORDERED: MIRT1TAB (18:01)
[2021-06-11] MEDS ORDERED: LAMO25TA4 (18:01)
--- OUTSIDE RECORDS SUMMARY | 2021-06-11 18:03 | CCD ---
Author Author [facility] Organization [facility] Address Unknown Phone Unavailable Care Team Providers Care Wood Tool Maker Name Role Phone Pam Baires Unavailable Pam [...] Unavailable MELVINAJEFE Ellis MD Unavailable Unavailable MELVINAJEFE Ellis MD Unavailable Unavailable MELVINAJEFE Ellis MD Unavailable Unavailable MELVINAJEFE MD Unavailable Unavailable MELVINAJEFE Ellis MD Unavailable Unavailable MELVINAJEFE Ellis MD Unavailable Unavailable MELVINAJEFE Ellis MD Unavailable Unavailable MELVINAJEFE Ellis MD Unavailable Unavailable MELVINAJEFE Ellis MD Unavailable Unavailable JEFE HEIN MD Unavailable Unavailable MonCari alvarez MD Unavailable Unavailable MondomCari MD Unavailable Unavailable MonCari alvarez MD Unavailable Unavailable MonCari alvarez MD Unavailable Unavailable Cari De Souza MD Unavailable Unavailable Cari De Souza MD Unavailable Unavailable Cari De Souza MD Unavailable Unavailable Cari De Souza MD Unavailable Unavailable FREDERICK GOODWIN MD Unavailable Unavailable DEFAULT, PROVIDER Unavailable Unavailable SANDEEP BAZAN MD Unavailable Unavailable SANDEEP BAZAN MD Unavailable Unavailable SANDEEP BAZAN MD Unavailable Unavailable SANDEEP BAZAN MD Unavailable Unavailable SANDEEP BAZAN MD Unavailable Unavailable SANDEEP BAZAN MD Unavailable Unavailable SANDEEP BAZAN MD Unavailable Unavailable SANDEEP BAZAN MD Unavailable Unavailable GEDELA, SANDEEP FAIR Unavailable [...] Unavailable Unavailable GEDELA, SANDEEP FAIR Unavailable Unavailable GOMEZ, L DENNISE PA Unavailable [...] Unavailable Unavailable Pavelock, Kevin Unavailable Unavailable Pavelock, Keivn Unavailable Unavailable Pavelock, Kevin Unavailable Unavailable Pavelock, [...] PA Unavailable [facility] Unavailable Unavailable COPELIN II MD ANAYELI Unavailable Unavailable KEEGAN FAIR, BRAYAN Unavailable Unavailable Karen SIBLEY MD Unavailable Unavailable COPECesario LEE II, MD Unavailable Unavailable COPEROSA IICesario MD Unavailable Unavailable PANRASHAWN PA Unavailable Unavailable PANRASHAWN PA Unavailable Unavailable PANRASHAWN MADIHA PA Unavailable Unavailable PAN, RASHAWN MADIHA [...] Unavailable PAN, RAHSAWN MADIHA PA Unavailable Unavailable Dean Willard MD [...] Unavailable Dean Willard MD Unavailable Unavailable BolDean calvertDavid MD Unavailable Unavailable Dean Willard MD Unavailable [...] Unavailable Unavailable PATI, CAMILA DO Unavailable Unavailable Harley Morgan PA-C Unavailable Eddie, Harley PA-C Unavailable Eddie Harley PA-C Unavailable Eddie, Harley PA-C Unavailable Eddie, Harley PA-C Unavailable MORAES, EDIS FABIEN RPA-C Unavailable Unavailable MORAES, EDIS FABIEN RPA-C Unavailable Unavailable MORAES, EDIS FABIEN RPA-C Unavailable Unavailable MORAES, EDIS FABIEN RPA-C Unavailable Unavailable MORAES, EDIS FABIEN RPA-C Unavailable Unavailable MORAES, EDIS FABIEN RPA-C Unavailable Unavailable OMRAES, EDIS FABIEN RPA-C Unavailable Unavailable MORAES, EDIS [...] Kashif FAIR Unavailable Unavailable Jeff Jr Bill aKshif FAIR Unavailable Unavailable Jeff Fly Bolaños MD [...] Jeff Jr, Bill Kashif MD Unavailable Unavailable Jeff Jr, Bill Kashif MD Unavailable Unavailable Jeff Jr, Bill Kashif MD Unavailable Unavailable Jeff Jr, Bill Kashif MD Unavailable Unavailable Jeff Jr, Bill Kashif MD Unavailable Unavailable Jonn Conrad MD Unavailable Unavailable Martinez Conradav Unavailable Unavailable Anamaria, Jonn Unavailable Unavailable Anamaria, Jonn MD Unavailable Unavailable Anamaria, Jonn MD Unavailable Unavailable Conrad, Jonn MD Unavailable Unavailable Conrad, Jonn MD Unavailable Unavailable Anamaria, Jonn MD Unavailable Unavailable Anamaria, Jonn MD Unavailable Unavailable Anamaria, Jonn MD Unavailable Unavailable Anamaria, Jonn MD Unavailable Unavailable Conrad, Jonn MD Unavailable Unavailable Anamaria, Jonn MD Unavailable Unavailable Anamaria, Jonn MD Unavailable Unavailable Anamaria, Jonn MD Unavailable Unavailable Anamaria Jonn MD Unavailable Unavailable Martinez Conradav Unavailable Unavailable Martinez Conradav Unavailable Unavailable Martinez Conradav Unavailable Unavailable Jonn Conrad MD Unavailable Unavailable Essence, Nell Cortes MD Unavailable Unavailable Essence, Nell Cortes MD Unavailable Unavailable Essence, Nell Cortes MD Unavailable Unavailable Essence, Nell Cortes MD Unavailable Unavailable Essence, Nell Cortes MD Unavailable Unavailable Essence, Nell Cortes MD Unavailable Unavailable Essence, Nell Cortes MD Unavailable Unavailable Essence, Nell Corets MD Unavailable Unavailable Essence, Nell Cortes MD [...] Essence, A Rashawn FAIR Unavailable Unavailable Essence, Nell Cortes MD Unavailable Unavailable Essence, A Rashawn FAIR Unavailable Unavailable Essence, A Rashawn FAIR Unavailable Unavailable Essence, A Rashawn FAIR Unavailable Unavailable Essence, A Rashawn FAIR Unavailable Unavailable Essence, A Rashawn FAIR Unavailable Unavailable Essence, Nell Cortes MD Unavailable Unavailable Essence, Nell Cortes MD Unavailable Unavailable Essence, Nell Cortes MD Unavailable Unavailable Essence, A Rashawn FAIR Unavailable Unavailable Essence, A Rashawn FAIR Unavailable Unavailable Essence, A Rashawn FAIR Unavailable Unavailable Essence, A Rashawn FAIR Unavailable Unavailable Essence, Nell Cortes MD Unavailable Unavailable Essence, Nell Cortes MD Unavailable Unavailable Essence, Nell Cortes MD Unavailable Unavailable Essence, Nell Cortes MD Unavailable Unavailable Essence, A Rashawn FAIR Unavailable Unavailable Essence, A Rashawn FAIR Unavailable Unavailable Essence, A Rashawn FAIR Unavailable Unavailable Essence, A Rashawn FAIR Unavailable Unavailable Essence, A Rashawn FAIR Unavailable Unavailable Essence, Nell Cortes MD Unavailable [...] Unavailable Essence, A Rashawn FAIR Unavailable Unavailable EGORHO, F GWEN FPMHNP Unavailable [...] KRANTHI JUVE PA-C Unavailable Unavailable QAMAR, KRANTHI JUEV PA-C Unavailable Unavailable QAMAR, KRANTHI JUVE PA-C [...] protected by Article 27-F of the [facility] Public Health law. If you continue you may have access to information: Regarding HIV / AIDS; Provided by facilities licensed or operated by the [facility] Office of Mental Health; or Provided by the [facility] Office for People With Developmental Disabilities. If such information is present, then the following [facility] mandated warning applies: This information has been [...] law may result in a fine or halfway sentence or both. A general authorization for the release of medical or other information is NOT sufficient authorization for further disc losure. Allergies and Adverse Reactions Type Description Substance Reaction Status Data Source(s ) Propensity to adverse reactions NO ALLERGIES ON FILE NO ALLERGIES ON FILE [facility] Propensity to adverse reactions LEVONORGESTREL-ETHINYL ESTRA D LEVONORGESTREL- ETHINYL ESTRAD Unknown [facility] Propensity to adverse reactions BEE VENOM PROTEIN (HONEY BEE) Ho huseyin bee venom Unknown [facility] Propensity to adverse reactions RIZATRIPTAN rizatriptan Swelling High [facility] Propensity to adverse reactions AMITRIPTYLINE Amitriptyline Swelling [facility] Allergy to substance Severe Amitriptyline Hallucinations DAVID ([facility]) Allergy to substance Severe Amitriptyline Hallucinations DAVID ([facility]) Family History Family Member Name Family Member Gender Family Member Status Date o f Status Description Data Source(s) Unknown Female Condition Family Member Diabetes B on [facility] Unknown Female Condition Family Member Cancer B on [facility] Unknown Female Condition Family Member Hypertension Bon [facility] Unknown Female Problem MEDENT ([facility]) Encounters Encounter Providers Location Date Indications Data Source(s ) Outpatient Attender: GWEN CHIN 06/04/2021 10:00: 00 AM EDT [facility] Outpatient Attender: Ragini Watts 06/04/2021 09:01:00 AM EDT [facility] Outpatient [facility] 05/27/2021 12:00:00 AM EDT eCW1 ([facility]) Outpatient [facility] 05/27/2021 12:00:00 AM EDT eCW1 ([facility]) Outpatient Att[facility] [place] [facility] 05/21/2021 10:00: 00 AM EDT [facility] Outpatient Attender: Ragini Zarateley 05/20/2021 01:00:00 PM EDT [facility]patient [facility] 05/16/2021 12:00:00 AM EDT eCW1 ([facility]) Outpatient Attender: [place] [facility] 05/05/2021 02:00: 00 PM EDT [facility] Outpatient [facility] 05/05/2021 12:00:00 AM EDT eCW1 ([facility]) Outpatient [facility] 05/05/2021 12:00:00 AM EDT eCW1 ([facility]) INPATIENT Attender: Jonn Conrad MDAtten leo: CAMILA KRUEGER DOAttender: SANDEEP BAZAN MDAdmitter: SANDEEP BAZAN MDConsultant: Kashif Aguilar Consultant: Rashawn Lowry MD 5F-1E 05/01/2021 10:26:00 PM EDT - 05/04/2021 04:32:00 PM EDT [facility] Patient discharged. INPATIENT Attender: JEFE HEIN MDAttflores leo: Jonn Conrad MDAttender: Cari De Souza MDAttender: CARI DE SOUZA MDAdmitter: Jonn Conrad MDConsultant: Rashawn Lowry MDConsultant: ANAYELI BADILLO IIConsultant: ANAYELI BADILLO II MDConsultant: Kevin Cervantes 5F-1E 04/25/2021 12:14:00 PM EDT - 04/28/2021 06:00:00 PM EDT [facility] Patient discharged. Emergency Attender: MADIHA Lozada: Ventura Gomez PA-C EMERGENCY ROOM-ER 04/24/2021 11:49:00 PM EDT - 04/25/2021 09:55:00 AM EDT [facility] Patient discharged. Outpatient Attender: PROVIDER DEFAULT 04/20/2021 04:35:45 PM EDT [facility] Outpatient [facility] 04/15/2021 12:00:00 AM EDT eCW1 ([facility]) Emergency Attender: Harley AGUILARCReferrer: Scott Gomez PA-C EMERGENCY ROOM-ER 04/12/2021 09:19:00 PM EDT - 04/13/2021 01:29:00 AM EDT [facility] Patient discharged. Outpatient Attender: Harley AGUILARCConsultant: [facility] [id number] 04/12/2021 09:06:00 PM EDT [facility] Outpatient Attender: GWEN MIRANDA [facility] 04/09/2021 10:00: 00 AM EDT [facility]carlton Willard MD: [id number] [place] [address], Ph. Attender: [place] Willard [place] [facility] - Main Office 04/07/2021 12:00:00 AM EDT [place] ([facility]) David Willard MD: [address], [place] [address], Ph. [phone] Attender: [place] Willard [place] [facility] - Main Office 04/02/2021 12:00:00 AM EDT DAVID ([facility]) Outpatient [facility] 03/28/2021 12:00:00 AM EDT eC ([facility]) Outpatient [facility] 03/28/2021 12:00:00 AM EDT eC ([facility]) INPATIENT Attender: FREDERICK GOODWIN MD 5F-GX 03/26/2021 05:43:40 PM EDT [facility] INPATIENT Attender: BRAYAN ALLISON MD 5F-GX 03/25/2021 09:53:3 9 AM EDT [facility] INPATIENT Attender: CARI DE SOUZA MDA ttender: Cari De Souza MDAttender: WINSTON QUIROGA MDAttender: Jonn Conrad MDAttender: MARTIN SIBLEY MDAttender: Martin Sibley MDAdmitter: Jonn Conrad MDConsultant: Rashawn Lowry MDConsultant: Kevin Cervantes 5F-1E 03/23/2021 03:25:00 PM E DT - 03/27/2021 04:11:00 PM EDT [facility] Patient discharged. Outpatient [id number] 03/22/2021 08:11:00 PM EDT [facility] Emergency Attender: WILLIE DIAZ PAReferrer: Scott Gomez PA-C EMERGENCY ROOM-ER 03/22/2021 03:34:00 PM EDT - 03/23/2021 12:40:00 PM EDT [facility] Patient discharged. Outpatient Attender: GWEN CHIN 03/19/2021 09:49: 00 AM EDT [facility] Outpatient Attender: Abida AGUILARCReferrer: Abida Gomez PA-C 03/19/2021 08:00:00 AM EDT [facility] David Willard MD: [id number] [facility] [address] [facility] [place] [address], Ph. Attender: [place] Willard MD [place] [facility] - Main Office 03/18/2021 12:00:00 AM EDT DAVID ([facility]) David Willard MD: [id number] [facility] [address] [facility] [place] [address], Ph. Attender: David Willard MD [facility] - Main Office 03/18/2021 12:00:00 AM EDT DAVID ([facility]) Preadmit Attender: Abida Gomez PA-C 03/14/2021 08:00 :00 AM EDT [facility] Outpatient [facility] 03/12/2021 12:00:00 AM EDT eCW1 ([facility]) Outpatient [facility] 03/11/2021 12:00:00 AM EDT eCW1 ([facility]) Outpatient Attender: GWEN DEVINPReferrer: Ventura Gomez PA-C EMERGENCY ROOM-LAB 03/10/2021 03:46:00 PM EDT - 03/10/2021 03:46:00 PM EDT [facility] Outpatient Attender: Abida Sherwoodferrer: Abida Gomez PA-C EMERGENCY ROOM-RIVCLI 03/10/2021 02:37:00 PM EDT - 03/10/2021 02:37:00 PM EDT [facility] Outpatient [facility] 03/10/2021 12:00:00 AM EDT eCW1 ([facility]) Outpatient [facility] 03/03/2021 12:00:00 AM EDT eCW1 ([facility]) Outpatient Attender: GWEN JEAN FPRUTH 02/13/2021 01:00: 00 PM EDT [facility] Outpatient [facility] 02/11/2021 12:00:00 AM EDT eCW1 ([facility]) Outpatient [facility] 02/04/2021 12:00:00 AM EDT eCW1 ([facility]) Outpatient Attender: JUVE FOOTE PA-C 01/31/2021 11:00:00 AM EDT [facility] Outpatient [facility] 01/30/2021 12:00:00 AM EDT eCW1 ([facility]) Outpatient [facility] 01/30/2021 12:00:00 AM EDT eCW1 ([facility]) Outpatient Attender: Pam Daniels: [facility] 01/29/2021 01:00:00 PM EDT - 01/29/2021 01:00:00 PM EDT [facility] Outpatient Attender: Ragini Watts 01/29/2021 10:00:00 AM EDT [facility] Outpatient [facility] 01/29/2021 12:00:00 AM EDT eCW1 ([facility]) Outpatient [facility] 01/22/2021 12:00:00 AM EDT eCW1 ([facility]) Outpatient [facility] 01/21/2021 12:00:00 AM EDT eCW1 ([facility]) Outpatient [facility] 01/16/2021 12:00:00 AM EDT eCW1 ([facility]) Outpatient Attender: Pam Daniels: FABIEN MARYC EMERGENCY ROOM-RIVCLI 01/15/2021 08:03:00 AM EDT - [facility]15[facility] 01/15/2021 12:00:00 AM EDT eCW1 ([facility]) Outpatient [facility] 01/15/2021 12:00:00 AM EDT eCW1 ([facility]) Emergency Attender: WILLIE Lozada: [facility] EMERGENCY ROOM-ER 06/04/2019 12:15:00 PM EDT - 06/04/2019 [facility] Emergency Attender: DENNISE Lozada: ALEK [facility] EMERGENCY ROOM-ER 05/10/2019 06:22:00 AM EDT - 05/10/2019 11:00:00 AM [facility] Patient discharged. Emergency Attender: MADIHA MANUEL EMERGENCY ROOM-ER 01/17/2018 12:13:00 AM EDT - 01/17/2018 02:40:00 AM [facility] Emergency Attender: MADIHA MANUEL EMERGENCY ROOM-ER 11/22/2017 09:40:00 PM EDT - 11/23/2017 02:25:00 AM [facility] Emergency Attender: WILLIE MANUEL EMERGENCY ROOM-ER 11/07 02:49:00 PM EDT - 11/19/2017 05:38:00 PM [facility] Emergency Attender: DENNISE MANUEL EMERGENCY ROOM-ER 08:49:00 PM EST - 09/30/2017 12:27:00 AM [facility] Outpatient Attender: FABIEN HEART EMERGENCY ROOM-LAB 0 08/25/2017 04:16:00 PM EST - 08/25/2017 04:16:00 PM [facility] Emergency Attender: OSKAR MANUEL EMERGENCY ROOM- ER 04/13/2017 09:15:00 PM EDT - 04/14/2017 01:54:00 AM [facility] Emergency Attender: DENNISE MANUEL EMERGENCY ROOM-ER 09:02:00 PM EDT - 03/21/2017 01:55:00 AM [facility] Emergency Attender: MADIHA MANUEL EMERGENCY ROOM-ER 12/30/2016 09:12:00 PM EDT - 12/31/2016 01:50:00 AM EDT [facility] Medications Medication Brand Name Start Date Product Form Dose Route Admi nistrative Instructions Pharmacy Instructions Status Indications Reaction Description Data Source(s) lamotrigine 25 MG Oral Tablet lamoTRIgine 25 MG lamoTRIgine 25 MG 05/21/2021 12:00:00 AM EDT 1.0 {tablet} active la moTRIgine 25 MG eCW1 ([facility]) lamotrigine 25 MG Oral Tablet lamoTRIgine 25 MG lamoTRIgine 25 MG 05/21/2021 12:00:00 AM EDT 1.0 {tablet} active la moTRIgine 25 MG eCW1 ([facility]) Acetaminophen 325 MG / Hydrocodone Nury trate 7.5 MG Oral Tablet HYDROcodone- acetaminophen (NORCO) 7.5-325 mg per tablet HYDROcodone-acetaminophen (NORCO) 7.5-325 mg per tablet 05/04/2021 12:00:00 AM EDT 1 {tbl} oral active Take 1 tablet by mouth every 6 (six) hours if needed for moderate pain or severe pain for up to 3 doses. [facility] Misoprostol 0.2 MG Oral Tablet miSOPROStoL (CYTOTEC) 2 00 mcg tablet miSOPROStoL (CYTOTEC) 200 mcg tablet 05/04/2021 12:00:00 AM EDT 200 ug oral active Take 1 tablet (200 mcg total) by mouth 4 (four) times a day. [facility] Methylcellulose 500 MG Oral Tablet methy lcellulose, laxative, (CITRUCEL) 500 mg tablet methylcellulose, laxative, (CITRUCEL) 500 mg tablet 12:00:00 AM EDT 1000 mg oral aborted Take 2 t ablets (1,000 mg total) by mouth 2 (two) times a day. [facility] Lactobacillus rhamnosus GG [id number] U NT Oral Capsule lactobacillus rhamnosus (PROBIOTIC EXTRA STRENGTH) 20 billion cell capsule lactobacillus rhamnosus (PROBIOTIC EXTRA STRENGTH) 20 billion cell capsule 03/27/2021 12:00:00 AM EDT 1 {capsule} oral aborted Take 1 capsule by [facility] 1 (one) time each day. [facility] brexpiprazole 1 MG Oral Tablet [Rexulti] Rexulti 1 MG Rexult i 1 MG 03/19/2021 12:00:00 AM EDT 1.0 {tablet} active Re xulti 1 MG eCW1 ([facility]) brexpiprazole 2 MG Oral Tablet [Rexulti] Rexulti 2 MG Rexult i 2 MG 03/19/2021 12:00:00 AM EDT 1.0 {tablet} active Re xulti 2 MG eCW1 ([facility]) brexpiprazole 1 MG Oral Tablet [Rexulti] Rexulti 1 MG Rexult i 1 MG 03/19/2021 12:00:00 AM EDT 1.0 {tablet} active Re xulti 1 MG eCW1 ([facility]) brexpiprazole 2 MG Oral Tablet [Rexulti] Rexulti 2 MG Rexult i 2 MG 03/19/2021 12:00:00 AM EDT 1.0 {tablet} active Re xulti 2 MG eCW1 ([facility]) brexpiprazole 1 MG Oral Tablet [Rexulti] Rexulti 1 MG Rexult i 1 MG 03/19/2021 12:00:00 AM EDT 1.0 {tablet} active Re xulti 1 MG eCW1 ([facility]) brexpiprazole 1 MG Oral Tablet [Rexulti] Rexulti 1 MG Rexult i 1 MG 03/19/2021 12:00:00 AM EDT 1.0 {tablet} active Re xulti 1 MG eCW1 ([facility]) brexpiprazole 2 MG Oral Tablet [Rexulti] Rexulti 2 MG Rexult i 2 MG 03/19/2021 12:00:00 AM EDT 1.0 {tablet} active Re xulti 2 MG eCW1 ([facility]) brexpiprazole 2 MG Oral Tablet [Rexulti] Rexulti 2 MG Rexult i 2 MG 03/19/2021 12:00:00 AM EDT 1.0 {tablet} active Re xulti 2 MG eCW1 ([facility]) brexpiprazole 1 MG Oral Tablet [Rexulti] Rexulti 1 MG Rexult i 1 MG 03/19/2021 12:00:00 AM EDT 1.0 {tablet} active Re xulti 1 MG eCW1 ([facility]) brexpiprazole 2 MG Oral Tablet [Rexulti] Rexulti 2 MG Rexult i 2 MG 03/19/2021 12:00:00 AM EDT 1.0 {tablet} active Re xulti 2 MG eCW1 ([facility]) [place] Carbonate 300 MG Oral Capsule [place] Carbonate 300 MG 02/13/2021 12:00:00 AM EDT 1.0 {capsule} suspended [place] Carbonate 300 MG eCW1 ([facility]) [place] Carbonate 300 MG Oral Capsule [place] Carbonate 300 MG 02/13/2021 12:00:00 AM EDT 1.0 {capsule} suspended [place] Carbonate 300 MG eCW1 ([facility]) Prazosin 1 MG Oral Capsule Prazosin HCl 1 MG Prazosin HCl 1 MG 02/13/2021 12:00:00 AM EDT 1.0 {capsule_at_bedtime} active Prazosin HCl 1 MG eCW1 ([facility]) [place] Carbonate 300 MG Oral Capsule [place] Carbonate 300 MG 02/13/2021 12:00:00 AM EDT 1.0 {capsule} suspended [place] Carbonate 300 MG eCW1 ([facility]) [place] Carbonate 300 MG Oral Capsule [place] Carbonate 300 MG 02/13/2021 12:00:00 AM EDT 1.0 {capsule} suspended [place] Carbonate 300 MG eCW1 ([facility]) Prazosin 1 MG Oral Capsule Prazosin HCl 1 MG Prazosin HCl 1 MG 02/13/2021 12:00:00 AM EDT 1.0 {capsule_at_bedtime} active Prazosin HCl 1 MG eCW1 ([facility]) [place] Carbonate 300 MG Oral Capsule [place] Carbonate 300 MG 02/13/2021 12:00:00 AM EDT 1.0 {capsule} active L ithium Carbonate 300 MG eCW1 ([facility]) [place] Carbonate 300 MG Oral Capsule [place] Carbonate 300 MG 02/13/2021 12:00:00 AM EDT 1.0 {capsule} active L ithium Carbonate 300 MG eCW1 ([facility]) [place] Carbonate 300 MG Oral Capsule [place] Carbonate 300 MG 02/13/2021 12:00:00 AM EDT 1.0 {capsule} suspended [place] Carbonate 300 MG eCW1 ([facility]) Prazosin 1 MG Oral Capsule Prazosin HCl 1 MG Prazosin HCl 1 MG 02/13/2021 12:00:00 AM EDT 1.0 {capsule_at_bedtime} active Prazosin HCl 1 MG eCW1 ([facility]) [place] Carbonate 300 MG Oral Capsule [place] Carbonate 300 MG 02/13/2021 12:00:00 AM EDT 1.0 {capsule} suspended [place] Carbonate 300 MG eCW1 ([facility]) Prazosin 1 MG Oral Capsule Prazosin HCl 1 MG Prazosin HCl 1 MG 02/13/2021 12:00:00 AM EDT 1.0 {capsule_at_bedtime} active Prazosin HCl 1 MG eCW1 ([facility]) Prazosin 1 MG Oral Capsule Prazosin HCl 1 MG Prazosin HCl 1 MG 02/13/2021 12:00:00 AM EDT 1.0 {capsule_at_bedtime} active Prazosin HCl 1 MG eCW1 ([facility]) Prazosin 1 MG Oral Capsule Prazosin HCl 1 MG Prazosin HCl 1 MG 02/13/2021 12:00:00 AM EDT 1.0 {capsule_at_bedtime} active Prazosin HCl 1 MG eCW1 ([facility]) [place] Carbonate 300 MG Oral Capsule [place] Carbonate 300 MG 02/13/2021 12:00:00 AM EDT 1.0 {capsule} suspended [place] Carbonate 300 MG eCW1 ([facility]) Prazosin 1 MG Oral Capsule Prazosin HCl 1 MG Prazosin HCl 1 MG 02/13/2021 12:00:00 AM EDT 1.0 {capsule_at_bedtime} active Prazosin HCl 1 MG eCW1 ([facility]) Prazosin 1 MG Oral Capsule Prazosin HCl 1 MG Prazosin HCl 1 MG 02/13/2021 12:00:00 AM EDT 1.0 {capsule_at_bedtime} active Prazosin HCl 1 MG eCW1 ([facility]) [place] Carbonate 300 MG Oral Capsule [place] Carbonate 300 MG 02/13/2021 12:00:00 AM EDT 1.0 {capsule} suspended [place] Carbonate 300 MG eCW1 ([facility]) Prazosin 1 MG Oral Capsule Prazosin HCl 1 MG Prazosin HCl 1 MG 02/13/2021 12:00:00 AM EDT 1.0 {capsule_at_bedtime} active Prazosin HCl 1 MG eCW1 ([facility]) Prazosin 1 MG Oral Capsule Prazosin HCl 1 MG Prazosin HCl 1 MG 02/13/2021 12:00:00 AM EDT 1.0 {capsule_at_bedtime} active Prazosin HCl 1 MG eCW1 ([facility]) Prazosin 1 MG Oral Capsule Prazosin HCl 1 MG Prazosin HCl 1 MG 02/13/2021 12:00:00 AM EDT 1.0 {capsule_at_bedtime} active Prazosin HCl 1 MG eCW1 ([facility]) [place] Carbonate 300 MG Oral Capsule [place] Carbonate 300 MG 02/13/2021 12:00:00 AM EDT 1.0 {capsule} suspended [place] Carbonate 300 MG eCW1 ([facility]) Prazosin 1 MG Oral Capsule Prazosin HCl 1 MG Prazosin HCl 1 MG 02/13/2021 12:00:00 AM EDT 1.0 {capsule_at_bedtime} active Prazosin HCl 1 MG eCW1 ([facility]) [place] Carbonate 300 MG Oral Capsule [place] Carbonate 300 MG 02/13/2021 12:00:00 AM EDT 1.0 {capsule} suspended [place] Carbonate 300 MG eCW1 ([facility]) Prazosin 1 MG Oral Capsule Prazosin HCl 1 MG Prazosin HCl 1 MG 02/13/2021 12:00:00 AM EDT 1.0 {capsule_at_bedtime} active Prazosin HCl 1 MG eCW1 ([facility]) [place] Carbonate 300 MG Oral Capsule [place] Carbonate 300 MG 02/13/2021 12:00:00 AM EDT 1.0 {capsule} suspended [place] Carbonate 300 MG eCW1 ([facility]) 0.3 ML Epinephrine 1 MG/ML Auto-Injector [Epipen] EpiP en 2-Jacquelyn 0.3 MG/0.3ML EpiPen 2-Jacquelyn 0.3 MG/0.3ML 01/29/2021 12:00:00 AM EDT active EpiPen 2-Jacquelyn 0.3 MG/0.3ML eCW1 ([facility]) 0.3 ML Epinephrine 1 MG/ML Auto-Injector [Epipen] EpiP en 2-Jacquelyn 0.3 MG/0.3ML EpiPen 2-Jacquelyn 0.3 MG/0.3ML 01/29/2021 12:00:00 AM EDT active EpiPen 2-Jacquelyn 0.3 MG/0.3ML eCW1 ([facility]) 0.3 ML Epinephrine 1 MG/ML Auto-Injector [Epipen] EpiP en 2-Jacquelyn 0.3 MG/0.3ML EpiPen 2-Jacquelyn 0.3 MG/0.3ML 01/29/2021 12:00:00 AM EDT active EpiPen 2-Jacquelyn 0.3 MG/0.3ML eCW1 ([facility]) Levothyroxine Sodium 0.025 MG Oral Tablet Levothyroxin e Sodium 25 MCG Levothyroxine Sodium 25 MCG 01/29/2021 12:00:00 AM EDT active Levothyroxine Sodium 25 MCG eCW1 ([facility]) Levothyroxine Sodium 0.05 MG Oral Tablet Levothyroxine Sodium 50 MCG Levothyroxine Sodium 50 MCG 01/29/2021 12:00:00 AM EDT active Levothyroxine Sodium 50 MCG eCW1 ([facility]) Levothyroxine Sodium 0.025 MG Oral Tablet Levothyroxin e Sodium 25 MCG Levothyroxine Sodium 25 MCG 01/29/2021 12:00:00 AM EDT active Levothyroxine Sodium 25 MCG eCW1 ([facility]) 0.3 ML Epinephrine 1 MG/ML Auto-Injector [Epipen] EpiP en 2-Jacquelyn 0.3 MG/0.3ML EpiPen 2-Jacquelyn 0.3 MG/0.3ML 01/29/2021 12:00:00 AM EDT active EpiPen 2-Jacquelyn 0.3 MG/0.3ML eCW1 ([facility]) Levothyroxine Sodium 0.025 MG Oral Tablet Levothyroxin e Sodium 25 MCG Levothyroxine Sodium 25 MCG 01/29/2021 12:00:00 AM EDT active Levothyroxine Sodium 25 MCG eCW1 ([facility]) 0.3 ML Epinephrine 1 MG/ML Auto-Injector [Epipen] EpiP en 2-Jacquelyn 0.3 MG/0.3ML EpiPen 2-Jacquelyn 0.3 MG/0.3ML 01/29/2021 12:00:00 AM EDT active EpiPen 2-Jacquelyn 0.3 MG/0.3ML eCW1 ([facility]) 0.3 ML Epinephrine 1 MG/ML Auto-Injector [Epipen] EpiP en 2-Jacquelyn 0.3 MG/0.3ML EpiPen 2-Jacquelyn 0.3 MG/0.3ML 01/29/2021 12:00:00 AM EDT active EpiPen 2-Jacquelyn 0.3 MG/0.3ML eCW1 ([facility]) Levothyroxine Sodium 0.025 MG Oral Tablet Levothyroxin e Sodium 25 MCG Levothyroxine Sodium 25 MCG 01/29/2021 12:00:00 AM EDT active Levothyroxine Sodium 25 MCG eCW1 ([facility]) 0.3 ML Epinephrine 1 MG/ML Auto-Injector [Epipen] EpiP en 2-Jacquelyn 0.3 MG/0.3ML EpiPen 2-Jacquelyn 0.3 MG/0.3ML 01/29/2021 12:00:00 AM EDT active EpiPen 2-Jacquelyn 0.3 MG/0.3ML eCW1 ([facility]) 0.3 ML Epinephrine 1 MG/ML Auto-Injector [Epipen] EpiP en 2-Jacquelyn 0.3 MG/0.3ML EpiPen 2-Jacquelyn 0.3 MG/0.3ML 01/29/2021 12:00:00 AM EDT active EpiPen 2-Jacquelyn 0.3 MG/0.3ML eCW1 ([facility]) 0.3 ML Epinephrine 1 MG/ML Auto-Injector [Epipen] EpiP en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 disease Problem 01/15/2021 12:00:00 AM EDT eCW1 ([facility]) Z72.0 [id number] Current tobacco use Problem 01/15/2021 12:00 :00 AM EDT eCW1 ([facility]) Surgeries/Procedures Procedure Description Date Indications Data Source(s) BLOOD COUNT COMPLETE AUTO&AUTO DIFRNTL WBC COUNT <td>H C CBC W/ DIFFERENTIAL</td><td>Routine</td><td>05/04/2021 4:32 AM EDT</td><td></td><td> </td> 05/04/2021 04:32:00 AM EDT [facility] MAGNESIUM <td>MAGNESIUM</td><td>Routin e</td><td>05/04/2021 4:32 AM EDT</td><td></td><td> </td> 05/04/2021 04:32:00 AM EDT [facility] BASIC METABOLIC PANEL CALCIUM TOTAL <td>BASIC METABOLI C PANEL</td><td>Routine</td><td>05/04/2021 4:32 AM EDT</td><td></td><td> </td> 05/04/2021 04:32:00 AM EDT [facility] PROTHROMBIN TIME <td>PT ON THERAPY</td><td>Ro utine</td><td>05/03/2021 4:00 AM EDT</td><td></td><td> </td> 05/03/2021 04:00:00 AM EDT [facility] BLOOD COUNT COMPLETE AUTO&AUTO DIFRNTL WBC COUNT <td>H C CBC W/ DIFFERENTIAL</td><td>Routine</td><td>05/03/2021 4:00 AM EDT</td><td></td><td> </td> 05/03/2021 04:00:00 AM EDT [facility] BASIC METABOLIC PANEL CALCIUM TOTAL <td>BASIC METABOLI C PANEL</td><td>Routine</td><td>05/03/2021 4:00 AM EDT</td><td></td><td> </td> 05/03/2021 04:00:00 AM EDT [facility] BLOOD COUNT HEMOGLOBIN <td>HEMOGLOBIN</td><td>Timed </td><td>05/02/2021 11:59 PM EDT</td><td></td><td> </td> 05/02/2021 11:59:00 PM EDT [facility] BLOOD COUNT HEMATOCRIT <td>HEMATOCRIT</td><td>Timed </td><td>05/02/2021 11:59 PM EDT</td><td></td><td> </td> 05/02/2021 11:59:00 PM EDT [facility] BLOOD COUNT HEMOGLOBIN <td>HEMOGLOBIN</td><td>Timed </td><td>05/02/2021 7:00 PM EDT</td><td></td><td> </td> 05/02/2021 07:00:00 PM EDT [facility] BLOOD COUNT HEMATOCRIT <td>HEMATOCRIT</td><td>Timed </td><td>05/02/2021 7:00 PM EDT</td><td></td><td> </td> 05/02/2021 07:00:00 PM EDT [facility] TRANSFUSE RED BLOOD CELLS <td>TRANSFUSE RED BLOOD CELLS</td><td>Routine</td><td>05/02/2021 2:51 PM EDT</td><td></td><td></td> 05/02/2021 02:51:44 PM EDT [facility] CYANOCOBALAMIN VITAMIN B-12 <td>VITAMIN B12 AND FOLATE</td><td>Routine</td><td>05/02/2021 11:52 AM EDT</td><td></td><td> </td> 05/02/2021 11:52:00 AM EDT [facility] IRON <td>IRON AND TIBC</td><td>Ro utine</td><td>05/02/2021 11:52 AM EDT</td><td></td><td> </td> 05/02/2021 11:52:00 AM EDT [facility] BLOOD COUNT COMPLETE AUTOMATED <td>CBC</td><td>STAT</t d><td>05/02/2021 11:52 AM EDT</td><td></td><td> </td> 05/02/2021 11:52:00 AM EDT [facility] BLOOD COUNT HEMOGLOBIN <td>HEMOGLOBIN</td><td>Timed </td><td>05/02/2021 11:52 AM EDT</td><td></td><td> </td> 05/02/2021 11:52:00 AM EDT [facility] BLOOD COUNT HEMATOCRIT <td>HEMATOCRIT</td><td>Timed </td><td>05/02/2021 11:52 AM EDT</td><td></td><td> </td> 05/02/2021 11:52:00 AM EDT [facility] FERRITIN <td>FERRITIN</td><td>Routine </td><td>05/02/2021 11:52 AM EDT</td><td></td><td> </td> 05/02/2021 11:52:00 AM EDT [facility] BLOOD TYPING ABO <td>PREPARE RBC</td><td>Rout ine</td><td>05/02/2021 9:31 AM EDT</td><td></td><td> </td> 05/02/2021 09:31:00 AM EDT [facility] SECOND (2ND) CONFIRMATION TYPE <td>SECOND (2ND) CONFIR MATION TYPE</td><td>Routine</td><td>05/02/2021 4:37 AM EDT</td><td></td><td> </td> 05/02/2021 04:37:00 AM EDT [facility] BLOOD COUNT HEMOGLOBIN <td>HEMOGLOBIN</td><td>Timed </td><td>05/02/2021 4:37 AM EDT</td><td></td><td> </td> 05/02/2021 04:37:00 AM EDT [facility] BLOOD COUNT HEMATOCRIT <td>HEMATOCRIT</td><td>Timed </td><td>05/02/2021 4:37 AM EDT</td><td></td><td> </td> 05/02/2021 04:37:00 AM EDT [facility] BLOOD TYPING ABO <td>TYPE AND SCREEN</td><td> STAT</td><td>05/02/2021 4:37 AM EDT</td><td></td><td> </td> 05/02/2021 04:37:00 AM EDT [facility] COMPREHENSIVE METABOLIC PANEL <td>COMPREHENSIVE METABO LIC PANEL</td><td>Routine</td><td>05/02/2021 4:37 AM EDT</td><td></td><td> </td> 05/02/2021 04:37:00 AM EDT [facility] POCT GLUCOSE METER UNSOLICITED RESULTS <td>POCT GLUCOS E METER UNSOLICITED RESULTS</td><td>Routine</td><td>04/28/2021 12:51 PM EDT</td><td></td><td> </td> 04/28/2021 12:51:00 PM EDT [facility] POCT GLUCOSE METER UNSOLICITED RESULTS <td>POCT GLUCOS E METER UNSOLICITED RESULTS</td><td>Routine</td><td>04/28/2021 5:33 AM EDT</td><td></td><td> </td> 04/28/2021 05:33:00 AM EDT [facility] BLOOD COUNT COMPLETE AUTO&AUTO DIFRNTL WBC COUNT <td>H C CBC W/ DIFFERENTIAL</td><td>Routine</td><td>04/28/2021 4:34 AM EDT</td><td></td><td> </td> 04/28/2021 04:34:00 AM EDT [facility] COMPREHENSIVE METABOLIC PANEL <td>COMPREHENSIVE METABO LIC PANEL</td><td>Routine</td><td>04/28/2021 4:34 AM EDT</td><td></td><td> </td> 04/28/2021 04:34:00 AM EDT [facility] POCT GLUCOSE METER UNSOLICITED RESULTS <td>POCT GLUCOS E METER UNSOLICITED RESULTS</td><td>Routine</td><td>04/28/2021 12:00 AM EDT</td><td></td><td> </td> 04/28/2021 12:00:00 AM EDT [facility] POCT GLUCOSE METER UNSOLICITED RESULTS <td>POCT GLUCOS E METER UNSOLICITED RESULTS</td><td>Routine</td><td>04/27/2021 5:50 PM EDT</td><td></td><td> </td> 04/27/2021 05:50:00 PM EDT [facility] IRON <td>IRON AND TIBC</td><td>Ro utine</td><td>04/27/2021 2:08 PM EDT</td><td></td><td> </td> 04/27/2021 02:08:00 PM EDT [facility] FERRITIN <td>FERRITIN</td><td>Routine </td><td>04/27/2021 2:08 PM EDT</td><td></td><td> </td> 04/27/2021 02:08:00 PM EDT [facility] COMPREHENSIVE METABOLIC PANEL <td>COMPREHENSIVE METABO LIC PANEL</td><td>Routine</td><td>04/27/2021 2:08 PM EDT</td><td></td><td> </td> 04/27/2021 02:08:00 PM EDT [facility] TOXICOLOGY SCREEN, URINE <td>TOXICOLOGY SCREEN, URINE</td><td>Routine</td><td>04/27/2021 12:00 PM EDT</td><td></td><td> </td> 04/27/2021 12:00:00 PM EDT [facility] POCT GLUCOSE METER UNSOLICITED RESULTS <td>POCT GLUCOS E METER UNSOLICITED RESULTS</td><td>Routine</td><td>04/27/2021 11:47 AM EDT</td><td></td><td> </td> 04/27/2021 11:47:00 AM EDT [facility] POCT GLUCOSE METER UNSOLICITED RESULTS <td>POCT GLUCOS E METER UNSOLICITED RESULTS</td><td>Routine</td><td>04/27/2021 5:20 AM EDT</td><td></td><td> </td> 04/27/2021 05:20:00 AM EDT [facility] BLOOD COUNT COMPLETE AUTO&AUTO DIFRNTL WBC COUNT <td>H C CBC W/ DIFFERENTIAL</td><td>Routine</td><td>04/27/2021 4:56 AM EDT</td><td></td><td> </td> 04/27/2021 04:56:00 AM EDT [facility] BASIC METABOLIC PANEL CALCIUM TOTAL <td>BASIC METABOLI C PANEL</td><td>Routine</td><td>04/27/2021 4:56 AM EDT</td><td></td><td> </td> 04/27/2021 04:56:00 AM EDT [facility] POCT GLUCOSE METER UNSOLICITED RESULTS <td>POCT GLUCOS E METER UNSOLICITED RESULTS</td><td>Routine</td><td>04/26/2021 11:48 PM EDT</td><td></td><td> </td> 04/26/2021 11:48:00 PM EDT [facility] POCT GLUCOSE METER UNSOLICITED RESULTS <td>POCT GLUCOS E METER UNSOLICITED RESULTS</td><td>Routine</td><td>04/26/2021 6:48 PM EDT</td><td></td><td> </td> 04/26/2021 06:48:00 PM EDT [facility] POCT GLUCOSE METER UNSOLICITED RESULTS <td>POCT GLUCOS E METER UNSOLICITED RESULTS</td><td>Routine</td><td>04/26/2021 12:04 PM EDT</td><td></td><td> </td> 04/26/2021 12:04:00 PM EDT [facility] POCT GLUCOSE METER UNSOLICITED RESULTS <td>POCT GLUCOS E METER UNSOLICITED RESULTS</td><td>Routine</td><td>04/26/2021 4:57 AM EDT</td><td></td><td> </td> 04/26/2021 04:57:00 AM EDT [facility] BLOOD COUNT COMPLETE AUTO&AUTO DIFRNTL WBC COUNT <td>H C CBC W/ DIFFERENTIAL</td><td>Routine</td><td>04/26/2021 4:36 AM EDT</td><td></td><td> </td> 04/26/2021 04:36:00 AM EDT [facility] MAGNESIUM <td>MAGNESIUM</td><td>Routin e</td><td>04/26/2021 4:36 AM EDT</td><td></td><td> </td> 04/26/2021 04:36:00 AM EDT [facility] COMPREHENSIVE METABOLIC PANEL <td>COMPREHENSIVE METABO LIC PANEL</td><td>Routine</td><td>04/26/2021 4:36 AM EDT</td><td></td><td> </td> 04/26/2021 04:36:00 AM EDT [facility] POCT GLUCOSE METER UNSOLICITED RESULTS <td>POCT GLUCOS E METER UNSOLICITED RESULTS</td><td>Routine</td><td>04/25/2021 11:19 PM EDT</td><td></td><td> </td> 04/25/2021 11:19:00 PM EDT [facility] URNLS DIP STICK/TABLET RGNT AUTO W/O MICROSCOPY <td><c ontent ID="[id number]">URINALYSIS W/MICROSCOPIC & CULTURE IF INDICATED</content></td><td>STAT</td><td>04/25/2021 5:00 PM EDT</td><td></td><td><paragraph styleCode="header">Results for this procedure are in the <content styleCode="[id number]">results section</content>.</paragraph></td> 04/25/2021 05:00:00 PM EDT [facility] PROTHROMBIN TIME <td>PROTHROMBIN TIME NO THER APY OR UNKNOWN</td><td>STAT</td><td>04/25/2021 4:12 PM EDT</td><td></td><td> </td> 04/25/2021 04:12:00 PM EDT [facility] THROMBOPLASTIN TIME PARTIAL PLASMA/WHOLE BLOOD <td>PTT NO THERAPY OR UNKNOWN</td><td>STAT</td><td>04/25/2021 4:12 PM EDT</td><td></td><td> </td> 04/25/2021 04:12:00 PM EDT [facility] BLOOD COUNT COMPLETE AUTO&AUTO DIFRNTL WBC COUNT <td>H C CBC W/ DIFFERENTIAL</td><td>STAT</td><td>04/25/2021 4:12 PM EDT</td><td></td><td> </td> 04/25/2021 04:12:00 PM EDT [facility] TRIIODOTHYRONINE T3 TOTAL TT3 <td>T3</td><td>Routine</ td><td>04/25/2021 4:12 PM EDT</td><td></td><td> </td> 04/25/2021 04:12:00 PM EDT [facility] THYROID STIMULATING HORMONE TSH <td>TSH</td><td>STAT</ td><td>04/25/2021 4:12 PM EDT</td><td></td><td> </td> 04/25/2021 04:12:00 PM EDT [facility] THYROXINE FREE <td>T4, FREE</td><td>Routine </td><td>04/25/2021 4:12 PM EDT</td><td></td><td> </td> 04/25/2021 04:12:00 PM EDT [facility] MAGNESIUM <td>MAGNESIUM</td><td>STAT</ td><td>04/25/2021 4:12 PM EDT</td><td></td><td> </td> 04/25/2021 04:12:00 PM EDT [facility] LIPASE <td>LIPASE</td><td>STAT</td> <td>04/25/2021 4:12 PM EDT</td><td></td><td> </td> 04/25/2021 04:12:00 PM T [facility] COMPREHENSIVE METABOLIC PANEL <td>COMPREHENSIVE METABO LIC PANEL</td><td>STAT</td><td>04/25/2021 4:12 PM EDT</td><td></td><td> </td> 04/25/2021 04:12:00 PM EDT [facility] COLONOSCOPY <td>COLONOSCOPY</td><td></td ><td>03/27/2021 10:28 AM EDT</td><td></td><td> </td> 03/27/2021 10:28:41 AM EDT [facility] CUL BACT STOOL AEROBIC ADDL PATHOGENS&ID EA <td>ENTERI C PATHOGENS, PCR (FOR DX INSTEAD OF INITIAL STOOL CULTURE)</td><td>Routine</td><td>03/26/2021 4:15 PM EDT</td><td></td><td> </td> 03/26/2021 04:15:00 PM EDT [facility] BLOOD COUNT COMPLETE AUTOMATED <td>CBC</td><td>Routine </td><td>03/26/2021 4:28 AM EDT</td><td></td><td> </td> 03/26/2021 04:28:00 AM EDT [facility] MAGNESIUM <td>MAGNESIUM</td><td>Routin e</td><td>03/26/2021 4:28 AM EDT</td><td></td><td> </td> 03/26/2021 04:28:00 AM EDT [facility] BASIC METABOLIC PANEL CALCIUM TOTAL <td>BASIC METABOLI C PANEL</td><td>Routine</td><td>03/26/2021 4:28 AM EDT</td><td></td><td> </td> 03/26/2021 04:28:00 AM EDT [facility] UPPER GI ENDOSCOPY <td>UPPER GI ENDOSCOPY</td>< td></td><td>03/25/2021 10:41 AM EDT</td><td></td><td> </td> 03/25/2021 10:41:55 AM EDT [facility] UPPER GI NDSC DX W/WO COLLECTION SPECIMEN <td>EGD (ESOPHAGOGASTRODUODENOSCOPY)</td><td></td><td>03/25/2021 10:06 AM EDT</td><td> GI bleed</td><td></td> 03/25/2021 10:06:00 AM EDT - 03/25/2021 10:37:00 AM ED T [facility] BLOOD COUNT COMPLETE AUTO&AUTO DIFRNTL WBC COUNT <td>H C CBC W/ DIFFERENTIAL</td><td>Routine</td><td>03/25/2021 4:20 AM EDT</td><td></td><td> </td> 03/25/2021 04:20:00 AM EDT [facility] BASIC METABOLIC PANEL CALCIUM TOTAL <td>BASIC METABOLI C PANEL</td><td>Routine</td><td>03/25/2021 4:20 AM EDT</td><td></td><td> </td> 03/25/2021 04:20:00 AM EDT [facility] BLOOD COUNT COMPLETE AUTO&AUTO DIFRNTL WBC COUNT <td>H C CBC W/ DIFFERENTIAL</td><td>Routine</td><td>03/24/2021 4:29 AM EDT</td><td></td><td> </td> 03/24/2021 04:29:00 AM EDT [facility] MAGNESIUM <td>MAGNESIUM</td><td>Routin e</td><td>03/24/2021 4:29 AM EDT</td><td></td><td> </td> 03/24/2021 04:29:00 AM EDT [facility] COMPREHENSIVE METABOLIC PANEL <td>COMPREHENSIVE METABO LIC PANEL</td><td>Routine</td><td>03/24/2021 4:29 AM EDT</td><td></td><td> </td> 03/24/2021 04:29:00 AM EDT [facility] POCT GLUCOSE METER UNSOLICITED RESULTS <td>POCT GLUCOS E METER UNSOLICITED RESULTS</td><td>Routine</td><td>03/23/2021 10:25 PM EDT</td><td></td><td> </td> 03/23/2021 10:25:00 PM EDT [facility] BLOOD COUNT COMPLETE AUTO&AUTO DIFRNTL WBC COUNT <td>H C CBC W/ DIFFERENTIAL</td><td>STAT</td><td>03/23/2021 8:42 PM EDT</td><td></td><td> </td> 03/23/2021 08:42:00 PM EDT [facility] C-REACTIVE PROTEIN <td>C-REACTIVE PROTEIN</td>< td>Routine</td><td>03/23/2021 8:42 PM EDT</td><td></td><td> </td> 03/23/2021 08:42:00 PM EDT [facility] MAGNESIUM <td>MAGNESIUM</td><td>STAT</ td><td>03/23/2021 8:42 PM EDT</td><td></td><td> </td> 03/23/2021 08:42:00 PM EDT [facility] LACTATE <td>LACTIC ACID</td><td>Rout ine</td><td>03/23/2021 8:42 PM EDT</td><td></td><td> </td> 03/23/2021 08:42:00 PM EDT [facility] COMPREHENSIVE METABOLIC PANEL <td>COMPREHENSIVE METABO LIC PANEL</td><td>STAT</td><td>03/23/2021 8:42 PM EDT</td><td></td><td> </td> 03/23/2021 08:42:00 PM EDT [facility] OXYGEN DAILY PROTOCOL <td>OXYGEN DAILY PROTOCOL</td><td>Routine</td><td>03/23/2021 5:48 PM EDT</td><td></td><td></td> 03/23/2021 05:48:21 PM EDT [facility] OXYGEN DAILY PROTOCOL <td>OXYGEN DAILY PROTOCOL</td><td>Routine</td><td>03/23/2021 5:48 PM EDT</td><td></td><td></td> 03/23/2021 05:48:21 PM EDT [facility] MRI, lumbar spine, w/wo contrast 03/18/2021 12:00:00 A M EDT DAVID ([facility]) ECG ROUTINE ECG W/LEAST 12 LDS W/I&R 03/10/2021 12:00: 00 AM EDT [email or web address] ([facility]) Results ID Date Data Source [id number] 06/02/2021 01:34:04 PM EDT [facility] Name Value Range Interpretation Code Description Data Arabella rce(s) Supporting Document(s) Consults [facility] [id number]/[id number]8hGIG6OJuTTxIrRoTrMMW3 lbm KkYdiVFyImCAQfWamWYjGkJDvpGafxkPGxKM6MyJT7PWXiB65nJZNyELHzO3AbJBLeDzo+Kp1CJMIkdY ZaNJ0ICbjB1J3MzkzVPx9aEa7kYuhwFUW0u5/oQGoZNGknYOy28NfHaJTNFcJnFvMC/Lmk4gYko6CI78 OzoKTEPohTO+cv2na6bBVq/vtdHaVxEARq+//Dn2lu 1NWd+uki1U4ogH757k2ypdlTEAGYmoII1z3VB/7YPC7vRao/nD6ZixUanDsNtWpLzIcnYfQd9QO93xU+ jt1A85KXZ2XqElAts4WJ8BFY2vBrkqvA8J7lKp7oRa4Zt/gwn2LhR2VmaETKHLpF90wzwuJWqats3BLb 0hd97MxVuiKiG4al/fEnCY6biL9JPYEw7mmNcoQ1sx NAPOLEON/qBbNtXj7jdHUb4gEzDOrTzf7lbDVSGjIC1tvYivOTIAnx9H2JGk+b74eE3vLlUFBM7uR58XRXrfY [file] kjSESQHtQ2VvcdQLddFNRRLl1L ID Date Data Source [id number] 05/05/2021 06:37:00 PM EDT [facility] Patient: KRISTIN SIENNA M [facility] Levels [facility].VisitID: [id number] [place] [address] [phone], FRegistration Date/Time: 04/24/2021 22:55 Weight:68.9 kg (S). [...] family medical history. (Electronically signed by Madiha Wolff P.A. 04/25/2021 06:30) Weight:68.9 kg (S). Height/Length:68 [...] rce(s) Supporting Document(s) ID Date Data Source [id number] 05/04/2021 04:34:32 PM EDT [facility] Name Value Range Interpretation Code Description Data Arabella rce(s) Supporting Document(s) Discharge Summary [facility] TIVGSr4aSoTFPlOw41/UJWkkJADov5YfEPhvTXc4ECrkRRGzQ2HgHZY8cK4jZCV8HCeRAtBeVyDzVAE4 lbm [file] AgICAgICAgICAgICAgICAgICAgICAgICAgICAgICAgICAgICAgICAgICAgICAgICAgICAgICAgICAgIC AgICAgICAgICAgICAgICAgICAgDQogICAgICAgICAgICAgICAgICAgICAgICAgICAgICAgICAgICAgIC AgICAgICAgICAgICAgICAgICAgICAgICAgICAgICAg ICAgICAgICAgICAgICAgICAgICAgICAgICAgICAgDQogICAgICAgICAgICAgICAgICAgICAgICAgICAg ICAgICAgICAgICAgICAgICAgICAgICAgICAgICAgICAgICAgICAgICAgICAgICAgICAgICAgICAgICAg ICAgICAgICAgICAgDQogICAgICAgICAgICAgICAgIC AgICAgICAgICAgICAgICAgICAgICAgICAgICAgICAgICAgICAgICAgICAgICAgICAgICAgICAgICAgIC AgICAgICAgICAgICAgICAgICAgICAgDQogICAgICAgICAgICAgICAgICAgICAgICAgICAgICAgICAgIC AgICAgICAgICAgICAgICAgICAgICAgICAgICAgICAg ICAgICAgICAgICAgICAgICAgICAgICAgICAgICAgICAgDQogICAgICAgICAgICAgICAgICAgICAgICAg ICAgICAgICAgICAgICAgICAgICAgICAgICAgICAgICAgICAgICAgICAgICAgICAgICAgICAgICAgICAg ICAgICAgICAgICAgICAgDQogICAgICAgICAgICAgIC AgICAgICAgICAgICAgICAgICAgICAgICAgICAgICAgICAgICAgICAgICAgICAgICAgICAgICAgICAgIC AgICAgICAgICAgICAgICAgICAgICAgICAgDQogICAgICAgICAgICAgICAgICAgICAgICAgICAgICAgIC AgICAgICAgICAgICAgICAgICAgICAgICAgICAgICAg ICAgICAgICAgICAgICAgICAgICAgICAgICAgICAgICAgICAgDQogICAgICAgICAgICAgICAgICAgICAg ICAgICAgICAgICAgICAgICAgICAgICAgICAgICAgICAgICAgICAgICAgICAgICAgICAgICAgICAgICAg ICAgICAgICAgICAgICAgICAgDQogICAgICAgICAgIC AgICAgICAgICAgICAgICAgICAgICAgICAgICAgICAgICAgICAgICAgICAgICAgICAgICAgICAgICAgIC RwXPFjJYBdQLRrOPTmHZMsTMWtDZFfZVHfHNVjOEx5J6ecRQPhIPGqXE6aUDu2Sx1+DWxLOvVzEWH9yp LdnX6MNV8ws3AfLJgvEBCln5VtMGf9BO7KAEQdIWld PT3SZKspvu0OVIAbSUDawWROv5anIcAqDZE8NHDvTcxwZN1DAYRsA3lwtiGdDTMyKTYKVHciNSVZKBgw UCENUFTbOPJvFsFdTdNwNCFuZR7BBITnQ214qpQaFE2LBy5YHlDnWK4jzg3GPOLhPIRtKxoOWrt6IKvs IO7WyULpaQZ6QyGzEKCJSiIeL9jdl1EpRMDcUFKOOM liAI5Lz4VytUMdQRz+Ox1DAX8wq1QuAHh6JcRhKV7lns7WMItQArVvY2EncMwfNKLcl8GaASGmHGIHfA 7sFYS1OQC5ZS6ysjH1YDGkAShiZK6HXPT2KCcbSwQnToSoPGRnVJznLTATOPiFDsLjS0Dbe2RoMsC0SO GpXtXgHTrwHCYcDyX0TU44qLroYL7EUZSlMWOkNW20 IVWaIZQpTi7KUz9KUcHxRU4lwq2HINNqVWOiQywZEqr0ILcfBV1JfKZpV3UjgQBps0iZVzEmC9KOXZN3 ZBGgRb4XNAUbKfDaNEAmYLsfCS3eIBOoOCCIsKcqoiZ1XS5VLY6ljwHqBS9IJnEbKc7qGn9XGaGjQ8Sz P7EmEIAbKPUJBKchBR5RQAyeBC1nSP0Bv8LHqURwiI 8ius8GCWGiXYCcXjxwil1RNvbcP8W3lUyiOYWeWAAtTTYJFThwRV6NITPpYUL4RIJ7JRIlJFMTEyXrA6 0cWL0DF3Idd45oMaI7UNVgHeAlYCugRE91pNngppVbjLBgnRklAF7TSg5+DQplbmRvYmoNCnhyZWYNCj UoVCOXXpVcNOBwLMZdQLLwWmH8CnAzZk3ELCQdFASo NIWsIfZcDOPsWKJzVRdvJGSaTFO1TBl0QTAvGVLxNW5UBnVzFPEmOqz1AlnsHPSuNNUoto9UBCCqWNMe EEK9PyJwGDSqOQAkOHpnOLOvIKIjXtzwAVMvHZCtWZ8IKdKyVVFaAKU3DKPiAXElWODmrr8TXIVyRDVg DSQ9LcCuPQKoZQVtBHeeRYQjRRY7HGMuNKOqWQUsOB 1WGeZiMKGtHBf7QSniKCRrKNHfxl8ORAOkVXWwPXX7RGTjJQWqJKInPDqsSVPjKKTwREo8BGWqCLXoHT 9XGlQcYVBwYJG2LFGvEKPrOCLnyc4PZFCmWZKcHvLvSdZuTHXxCGIwAZhlPGCrUNBxSOQqDCFxYBEjRX 5KZzJqIUTrJIQ8QvOgZOQaNXOsiv0WORXlVVDeXgB7 LBKwRIZhOBIeHHhvUVNgGLQhSPOwOIXgYAAwIN2WZlMiNRHtVMD9FaUlDSXoNIExsw0MNPTxSJNwGRNc BWWsIJDbKKFcAUshFMLsQRG4EgClULJpJDOlGE5FYsQxIKTjFev0RZDzGWWxQJCqow0HCXVySZCuHxh6 MkXoFAXiXTWgGNdiULVnSSU1GIp5WDGjBAMtPJ2SKl ViLMEhObkuMSZgWCLvINJvwu8XLZNwKQWoPGD4EaDsIUMnFFPtQKjgWTRjMVQ0YJG4TXYhQUJpVL8CJy YfLNCpKtt6BDInBMWuDXMilk2MUHMfWYKqVPt5SNYoUZByURFqQKjqDIMsQFUcHlL0SLJfETXwJR8AIw LaZYTyHrN6MYItAGOlXTSnbo9YFBZhRMNsQSQ1OILx KWAjHYZmTEiwDTZbONF9EXVtXSAqGTRcPM7QWdNyXZAhHiQhFEamBWBsJZAche1TJQAlQZHaZkG2PJAl UIAwYPMyRBpqVDLeORX3Ysr8VAFcVJKrPD0NPlMsFHOsYjK0SMTvBFXcJZHjcs5DMTYeKJZuGwt7ARIr HWIrQDRxNLhrBNRxRHK2CEj9QISrLPIsMH4VPgPjFM FqNhpxEcKlIBXeVKDokm7VEVWbSBMlTUSnYiZaAZZiZHUuBGivSTQgXEBvRYLfCVMtCTNvXP9SQgXsHH UnREZpSiXnDXIsCPYxga1HAFLqFQM2WBGhMGUkPXZpHBAsSDm7vwWasQTiBOl7LU7MU0KvneNxXWZEEg 1Oz235AHIkSVZmOh6BV7npDg0aKGImWMDNLk3GEGw6 I5M3K3AnKcX8GpbeByZkMtLzIqkqYgc6UXAeI1FrGKN+OMlwSUz4A7CkWkLnVVTlPFGxEHDzY5RxLKY6 WEThS7GmGL0eRXXRZg1+IWyfcQIyxUznDWHRAbMcOZM8XMzfUHSXJf6Z ID Date Data Source [id number] 05/04/2021 03:25:37 PM EDT [facility] Name Value Range Interpretation Code Description Data Arabella rce(s) Supporting Document(s) Nursing Note [facility] TSVOBq6hTcSTCbMe69/ODKczEQPjm5RyOVlnPLr1HXypTRZgT7RsGHH1bR6qYII9GGcHVfJdFoEiEPX9 lbm [file] [id number]== ID Date Data Source [id number] 05/04/2021 12:56:29 PM EDT [facility] Name Value Range Interpretation Code Description Data Arabella rce(s) Supporting Document(s) Care Plan [facility] CHLLUn5iIrPCSkIs77/GVVujCHMuw3VcMWotJPv4ZFgcILRiM0LxZDY4cW0pDNR4JYxMRaQjClYkJKV3 lbm [file] IeBrUnMazjH3WvZfvdFmS0QiHvHX3VLe1ZEmH4JJM2qBLcNd5DZrP3DLSLEkFsWP9DPVr= ID Date Data Source [id number] 05/04/2021 07:13:56 AM EDT [facility] Name Value Range Interpretation Code Description Data Arabella rce(s) Supporting Document(s) Nursing Note [facility] DWFKSy2bPaYWWmEi36/ETNwaENNhv6VjRJmvBCz2DKreRCDqE6IiWFM2hH2aJEC6HNyVUoLyRsVrHNE1 lbm [file] RdPkReEI5WOs4RWcK1WOQ7xEArOz6XBhBvZSNAUoRyNQ9FPUt= ID Date Data Source [id number] 05/04/2021 05:39:00 AM EDT [facility] Name Value Range Interpretation Code Description Data Arabella rce(s) Supporting Document(s) Blood Urea Nitrogen 15 mg/dl 7-18 Normal (applies to non-nume ny results) [facility] Creatinine 0.78 mg/dl 0.51-0.95 Normal (applies to non-numeric resul ts) [facility] N-Acetylcysteine (NAC) and Metamizole em ve the potential to falselydepress Creatinine results. Baseline values before medication adminstration are recommended. Patients undergoing treatment with phenindione will have falselydepressed results. Patients on phenindione therapy should be tested with an alternativeCREA method.Toxic levels of acetaminophen may lead to falsely depressed results forpatient samples. Glomerular Filtration Rate 83.00 mL/min/1.73m2 [facility] GFR Reference Ranges:Normal Function or Mild Renal [...] of Health and the National KidneyFoundation. The [place] method used in calculating this result is traceable to IDMS standards. Glucose 86 mg/dl 70-110 Normal (applies to non-numeric resul ts) [facility] Sulfasalazine has the potential to false ly depress Glucose results. Sulfapyridine has the potential to falsely elevate Glucose results. Baseline values before medication administration are recommended. Calcium 8.5 mg/dl 8.5-10.1 Normal (applies to non-numeric resul ts) [facility] Sodium 137 mEq/L 136-145 Normal (applies to non-numeric resul ts) [facility] Potassium 3.7 mEq/L 3.5-5.1 Normal (applies to non-numeric resul ts) [facility] Chloride 109.0 mEq/L 98.0-107.0 Above high normal [facility] Anion Gap 9.7 [facility] Carbon Dioxide 22.0 mMol/L 21.0-32.0 Normal (applies to non-numeric results) [facility] The above 10 analytes were performed by [facility] [id number], ,[place] [address] ID Date Data Source [id number] 05/04/2021 05:39:00 AM EDT [facility] Name Value Range Interpretation Code Description Data Arabella rce(s) Supporting Document(s) Magnesium 2.0 mg/dl 1.6-2.6 Normal (applies to non-numeric resul ts) [facility] The above 1 analytes were performed by [facility] [id number], ,[place] [address] ID Date Data Source [id number] 05/04/2021 05:18:00 AM EDT [facility] Name Value Range Interpretation Code Description Data Arabella rce(s) Supporting Document(s) WBC 5.61 x1000/ul 4.80-10.00 Normal (applies to non-numeric re sults) [facility] RBC 4.13 x1Mil/ul 4.20-5.40 Below low normal [facility] Hemoglobin 11.1 g/dl 12.0-16.0 Below low normal [facility] Hematocrit 34.4 % 37.0-47.0 Below low normal [facility] MCV 83.3 fL 81.0-99.0 Normal (applies to non-numeric resul ts) [facility] MCH 26.9 pg 27.0-31.0 Below low normal [facility] MCHC 32.3 g/dl 32.2-37.0 Normal (applies to non-numeric resul ts) [facility] RDW 14.6 % 11.5-14.5 Above high normal [facility] Platelet Count 235 x1000/ul 130-400 Normal (applies to non-numeric results) [facility] MPV 10.4 fL 9.4-12.4 Normal (applies to non-numeric resul ts) [facility] Neutrophils 51.3 % 40.0-74.0 Normal (applies to non-numeric resu lts) [facility] Lymphocytes 36.5 % 19.0-48.0 Normal (applies to non-numeric resu lts) [facility] Monocytes 9.3 % 3.4-9.0 Above high normal [facility] Eosinophils 2.0 % 0.0-7.0 Normal (applies to non-numeric resu lts) [facility] Basophils 0.7 % 0.0-2.0 Normal (applies to non-numeric resul ts) [facility] Immature Granulocytes 0.2 % 0.0-0.5 Normal (applies to non-nu meric results) [facility] Nucleated RBCs 0.00 % 0.00-0.20 Normal (applies to non-numeric r esults) [facility] Abs. Neutrophils 2.88 x1000/ul 1.92-8.31 Normal (applies to non-numeric results) [facility] Abs. Lymphocyte 2.05 x1000/ul 1.20-3.70 Normal (applies to non-n umeric results) [facility] Abs. Monocytes 0.52 x1000/ul 0.14-0.97 Normal (applies to non-nu meric results) [facility] Abs. Eosinophils 0.11 x1000/ul 0.00-0.76 Normal (applie s to non-numeric results) [facility] Abs. Basophils 0.04 x1000/ul 0.00-0.22 Normal (applies to non-n umeric results) [facility] Abs. Immature Gran. 0.01 x1000/ul 0.00-0.02 Normal (appl ies to non-numeric results) [facility] Abs. Nucleated RBCs 0.00 x1000/ul 0.00-0.02 Normal (appl ies to non-numeric results) [facility] The above 24 analytes were performed by [facility] [id number], ,[place] [address] ID Date Data Source [id number] 05/04/2021 01:18:34 AM EDT [facility] Name Value Range Interpretation Code Description Data Arabella rce(s) Supporting Document(s) Care Plan [facility] VQWESw5zKwZLInYv98/RAWjnTZJvz2QnNIspKJn3ZMrpBDCqY5QtDMR3sM8lPJW8EBrBWgLlKaLqSBI3 lbm [file] ABdXX7472JCzqtIylFg+mlXE7hhQHj9iayTqM7AkZWAj1aC50Pe1t+3w42DtPV/SLEEVE SETTER SAFETY STITCH/zBvD6VdO65ETzX [file] ICAgICAgICAgICAgICAgICAgICAgICAgICAgICAgICAgICAgICAgICAgICAgICAgICAgICAgICAgICAg ICAgDQogICAgICAgICAgICAgICAgICAgICAgICAgIC AgICAgICAgICAgICAgICAgICAgICAgICAgICAgICAgICAgICAgICAgICAgICAgICAgICAgICAgICAgIC AgICAgICAgICAgICAgDQogICAgICAgICAgICAgICAgICAgICAgICAgICAgICAgICAgICAgICAgICAgIC AgICAgICAgICAgICAgICAgICAgICAgICAgICAgICAg ICAgICAgICAgICAgICAgICAgICAgICAgDQogICAgICAgICAgICAgICAgICAgICAgICAgICAgICAgICAg ICAgICAgICAgICAgICAgICAgICAgICAgICAgICAgICAgICAgICAgICAgICAgICAgICAgICAgICAgICAg ICAgICAgDQogICAgICAgICAgICAgICAgICAgICAgIC AgICAgICAgICAgICAgICAgICAgICAgICAgICAgICAgICAgICAgICAgICAgICAgICAgICAgICAgICAgIC AgICAgICAgICAgICAgICAgDQogICAgICAgICAgICAgICAgICAgICAgICAgICAgICAgICAgICAgICAgIC AgICAgICAgICAgICAgICAgICAgICAgICAgICAgICAg ICAgICAgICAgICAgICAgICAgICAgICAgICAgDQogICAgICAgICAgICAgICAgICAgICAgICAgICAgICAg ICAgICAgICAgICAgICAgICAgICAgICAgICAgICAgICAgICAgICAgICAgICAgICAgICAgICAgICAgICAg ICAgICAgICAgDQogICAgICAgICAgICAgICAgICAgIC AgICAgICAgICAgICAgICAgICAgICAgICAgICAgICAgICAgICAgICAgICAgICAgICAgICAgICAgICAgIC AgICAgICAgICAgICAgICAgICAgDQogICAgICAgICAgICAgICAgICAgICAgICAgICAgICAgICAgICAgIC AgICAgICAgICAgICAgICAgICAgICAgICAgICAgICAg ICAgICAgICAgICAgICAgICAgICAgICAgICAgICAgDQogICAgICAgICAgICAgICAgICAgICAgICAgICAg ICAgICAgICAgICAgICAgICAgICAgICAgICAgICAgICAgICAgICAgICAgICAgICAgICAgICAgICAgICAg KFSoLIMjFUFkTMKfLZm6A0djIJAaEWVkQS2mISn0Qt 8+ETfOErTrTMK0tbKidX0HXN3nq5VuRTssNXIyf5AbJPh5AT4RKKOyIYmzJL6FBGwbrs5NFBFjJMJbhM JDy0jlUsJtSVJ5AGYbEypzAZ7RNYLpA1dusjRaHMJoPRMXFK4VPkHdF8TzwG00WVVOWp2+DQplbmRvYm kABvBnNFXvd7FrGLw0EI6ZZJCkJytqv0JkNmBlYDWF BWfeUM4CBPW6XOCqLWBxAy7KDLQnH145tiYzQL3IDf9XGuSoAK3reh9TMlZzDYFcZalNYod0YFvoNF6Q aIPaVJvVSVOqBQXsKQ2fDiupLhX8QKpasIWbDrhlb6KxU2vnTTUSROB8IHubFeStBbLeQUQzCDcxGGQN EIqBAcEuH1Epc2EpGrR3ZGLxVrFmFLibQTUuVvT7UD 24rXiwDC1LVMDjIYXoPX38XMCwDBFeXj2RNb4VDzYrUC6tlt6CMoQcHNNfQleERdb1EZzbFK4TeKNaO0 IsmVJzd8fFVzSnV3KNJTF6HJGcUk5CYPJzNzJxOJCwRBshNQ3bDFGxDGAXmEcjocV6QI9INO0emnEyQZ 4RYkEtQz0oFd2NHbZsP1ZjK0JyCSTmLDSFWJtwNH0X CUymQZ1sPB9Yd5YXaJMjeD7mbl4YPZIcLRBjCbtflc9YFdwzL9F4jHcgUTMwHfBlYMTEBMgwUY1MMCMm JOX0AVKtLEToPBPDMgEwI46xUI5GX1Lhp63kVqC4YBBlVuOfWBkaOU60kOjfhqEhgXDaiQdbXC4KKp4+ DQplbmRvYmoNCnhyZWYNCjAgMzMNCjAwMDAwMDAwMD NySyS7ZoOkQh7VQBRwPHFaWUKeDaHoZNDyHEQuXXqlLQNkGHUiBRY6MPQjMLWsMW2GKwXgSZLsARCzET SqCWRrPRHqpw7ATYMbPGPgGJG0AeBcAJFgEVGuJBfnVDYeZBPaDAK1CBMvCICgJV2AKnScXTLqOOHsRU AmJRJyTKAfxd2NBITkYJQzRCI0CRGaUNTbIBHiNPhg FYLeHDL2BdakUIWvRVZsFN1ZKcDgWTWrNRG9LRgyAWMfCRXubt9QYIFxZMHcRYRzRkUwRVRfLWByENnl BWXyYZL8JqCySPYuZHMfKU2PPbGrCNAtAJS6PTLePEIrEIDknx0YOOCgQCLaYMM0TTAgMYAmQFHjJTdy ULClPIZ2UCDuJKHgEJTzGY3NXfPsYPTjWVs9QhehFV RnIRKnmd5ZTJVnQWSqFWljNYYwPOMlXZPcHNyfYKLqJHX2WIM6JTJtOYNdYX9VFoKtRFHjSSi9LUpdMA GsGNSehr9BROHjVCMfMYQ9QCSgYSIcZDGqCIvqTGYnJIMqOwbrRPTiOVKbJD1YMuWuUXIgIjDuIpHpMT IlDGGmql7YGCSjHJAfQHVdDRHhRPJzZXFzWEmjUPOv JLDzNantAABdOWRaUL3CQaVuQLVoOmliRXKjINOrVEJmpc3JBDVhSCSnADElYLDoOUKzYTUmQKpxIOSw WPC6CMC2FSNkCPFnXA5RIuXmNJHmVWBzVYirJKYjTVNtbz8TZOAeTKA2PWUgRIQlMHRaWONvKRetADMz OBBtEHOcGACrRPIlKK3CEbGbRRRjHLIfWXMjHLRaTR Srtr2SAWCdAVS7CoL3OjDxOEZjXILcFSxiVFKfIDSxTgY9OCKaMISoDK9KVjBpVSprMLVAMlx1QImpC5 e4RUYmNm6LX8Gnv5HlEcPfWHMBHMhwGP3cyoUuJRVxPo6MR0kVCof3AvMhRMJ5NORqOLPtSKVzK3YiAG QlVNNpPuPuIywvFT1aMPp8FmZ1Btp9ZPV3QPRnJyRm CXVnOEM7GPLmJyWoIZC6AnAvDJ2DQp4YYdH4SDJ0tPPbVq3DHYT7KQSSHyLqCA1UQNr= ID Date Data Source [id number] 05/03/2021 04:14:39 PM EDT [facility] Name Value Range Interpretation Code Description Data Arabella rce(s) Supporting Document(s) Progress Notes [facility] QMIOQm8oRuZGKvEj49/ECUpsDWCnz6WcMTdyCOd1PTqiUVExL2JoPBH2qB7lWGY3PSoKMdXsRhZmFPD7 lbm [file] W0oWArKm2WCGl5IVVZHrQzBC4GWHq= ID Date Data Source [id number] 05/03/2021 03:38:36 PM EDT [facility] Name Value Range Interpretation Code Description Data Arabella rce(s) Supporting Document(s) Progress Notes [facility] BGFLRe1fOnMBYyQy70/JCTrnWKGzb1PiZDphXTd1NRryKXYyS5GkZPX2zI4bQVN8ATmWRxZrEdNfADZ6 lbm LyYiiDNxOmFRKrNhdQEfPjDCirMsvcmEMwLE7IiQC5PVKvT06iPADhNKRiQ5XdTCM8WJk+Rk1XZXSpdX ZlQB5SHbdL6PnyB+Q47snR3z/1jMBT1Nt4h06eUYNi5eeMYmWjywhkKir2BO03yngOp0F//nsC0mGH1s EoG6jkKBJNVLocm2pTABDAgZmaX9ARJQTExFcj/CpT [file] AkCqSyFRgfOHZVPf0H ID Date Data Source [id number] 05/03/2021 11:35:45 AM EDT [facility] Name Value Range Interpretation Code Description Data Arabella rce(s) Supporting Document(s) Care Plan [facility] NLJPOl1dWwRAIyNq25/JDMmzWROye4DoRXnwJRl8AOucFZUnR2RnBUZ4hY7tQRH2EOlMCuSuBpOzFCE2 lbm [file] DQo= ID Date Data Source [id number] 05/03/2021 10:15:39 AM EDT [facility] Name Value Range Interpretation Code Description Data Arabella rce(s) Supporting Document(s) Nursing Note [facility] CEGEGc8oJtQSJyOy38/VJFxuDPGfp5VwKAphTHp0KRjkMPHuD1HjGET6hY5nXQP3UQlDZcVaMaVrDAY7 lbm [file] ArI5QjYfKU3RVe2CXjF3QGT7xIAvPm8FHoZ2LGWLRiXaTJ3VFRo= ID Date Data Source [id number] 05/03/2021 09:38:41 AM EDT [facility] Name Value Range Interpretation Code Description Data Arabella rce(s) Supporting Document(s) Care Plan [facility] LSHUEl1jDiRQMzUa17/JTJldGGTzd8FtHYipSHk4LCqjSPXjN9GwUWS0iM7yAKO4JJaPXwFpSnAoURM7 lbm [file] 9GDQo= ID Date Data Source [id number] 05/03/2021 07:07:07 AM EDT [facility] Name Value Range Interpretation Code Description Data Arabella rce(s) Supporting Document(s) Nursing Note [facility] SCHNLf2uPnAQXrIb03/EZVfwTSEnh8HuFUzbQTd6SWctRPTgN5QsYJA2zX1wTWO7PIqPFyBgCmNxYGR7 lbm [file] == ID Date Data Source [id number] 05/03/2021 05:12:00 AM EDT [facility] Name Value Range Interpretation Code Description Data Arabella rce(s) Supporting Document(s) Blood Urea Nitrogen 11 mg/dl 7-18 Normal (applies to non-nume ny results) [facility] Creatinine 0.72 mg/dl 0.51-0.95 Normal (applies to non-numeric resul ts) [facility] N-Acetylcysteine (NAC) and Metamizole em ve the potential to falselydepress Creatinine results. Baseline values before medication adminstration are recommended. Patients undergoing treatment with phenindione will have falselydepressed results. Patients on phenindione therapy should be tested with an alternativeCREA method.Toxic levels of acetaminophen may lead to falsely depressed results forpatient samples. Glomerular Filtration Rate >90.00 mL/min/1.73m2 [facility] GFR Reference Ranges:Normal Function or Mild Renal [...] of Health and the National KidneyFoundation. The [place] method used in calculating this result is traceable to IDMS standards. Glucose 69 mg/dl 70-110 Below low normal [facility] Sulfasalazine has the potential to false ly depress Glucose results. Sulfapyridine has the potential to falsely elevate Glucose results. Baseline values before medication administration are recommended. Calcium 8.5 mg/dl 8.5-10.1 Normal (applies to non-numeric resul ts) [facility] Sodium 138 mEq/L 136-145 Normal (applies to non-numeric resul ts) [facility] Potassium 3.8 mEq/L 3.5-5.1 Normal (applies to non-numeric resul ts) [facility] Chloride 110.0 mEq/L 98.0-107.0 Above high normal [facility] Anion Gap 11.3 [facility] Carbon Dioxide 20.5 mMol/L 21.0-32.0 Below low normal [facility] The above 10 analytes were performed by [facility] [id number], ,[place] [address] ID Date Data Source [id number] 05/03/2021 05:00:00 AM EDT [facility] Name Value Range Interpretation Code Description Data Arabella rce(s) Supporting Document(s) PT,Patient (on Anticoag. Therapy) 13.6 Seconds [facility] Attention: Effeciive 01/03/2020 The nor mal range for PT (on Anticoagulant Therapy) has changed:Previous normal range: 10.1-11.3New normal range: NoneDiscrepant results may occur due to anticoagulant effects such ascoumadin, direct thrombin inhibitors; argatroban (Acova), bivalirudin(Angiomax) or dabigatran (Pradaxa) or direct factor Xa inhibitors;rivaroxaban (Xarelto), apixaban (Eliquis) and edoxaban (Savaysa). INR (on Anticoagulant Therapy) 1.2 2.0-3.5 Below low normal [facility] Suggested therapeutic INR ranges for ora l anticoagulant therapy: Indication:INRPrevention and treatment of DVT and PE2.0 - 3.0Prevention of systemic embolism with atrial fib., acute [place] and 2.0 -3.0 tissue prosthetic heart valves.Prevention of systemic embolism in patients with mechanical heart2.5 -3.5 valves.NOTE: The INR is only valid for patients on stable oral anticoagulanttherapy. The above 2 analytes were performed by [facility] [id number], ,[place] [address] ID Date Data Source [id number] 05/03/2021 04:56:00 AM EDT [facility] Name Value Range Interpretation Code Description Data Arabella rce(s) Supporting Document(s) WBC 5.87 x1000/ul 4.80-10.00 Normal (applies to non-numeric re sults) [facility] RBC 4.05 x1Mil/ul 4.20-5.40 Below low normal [facility] Hemoglobin 10.8 g/dl 12.0-16.0 Below low normal [facility] Hematocrit 34.2 % 37.0-47.0 Below low normal [facility] MCV 84.4 fL 81.0-99.0 Normal (applies to non-numeric resul ts) [facility] MCH 26.7 pg 27.0-31.0 Below low normal [facility] MCHC 31.6 g/dl 32.2-37.0 Below low normal [facility] RDW 15.0 % 11.5-14.5 Above high normal [facility] Platelet Count 204 x1000/ul 130-400 Normal (applies to non-numeric results) [facility] MPV 10.5 fL 9.4-12.4 Normal (applies to non-numeric resul ts) [facility] Neutrophils 50.9 % 40.0-74.0 Normal (applies to non-numeric resu lts) [facility] Lymphocytes 37.6 % 19.0-48.0 Normal (applies to non-numeric resu lts) [facility] Monocytes 8.2 % 3.4-9.0 Normal (applies to non-numeric resul ts) [facility] Eosinophils 2.2 % 0.0-7.0 Normal (applies to non-numeric resu lts) [facility] Basophils 0.9 % 0.0-2.0 Normal (applies to non-numeric resul ts) [facility] Immature Granulocytes 0.2 % 0.0-0.5 Normal (applies to non-nu meric results) [facility] Nucleated RBCs 0.00 % 0.00-0.20 Normal (applies to non-numeric r esults) [facility] Abs. Neutrophils 2.99 x1000/ul 1.92-8.31 Normal (applies to non-numeric results) [facility] Abs. Lymphocyte 2.21 x1000/ul 1.20-3.70 Normal (applies to non-n umeric results) [facility] Abs. Monocytes 0.48 x1000/ul 0.14-0.97 Normal (applies to non-nu meric results) [facility] Abs. Eosinophils 0.13 x1000/ul 0.00-0.76 Normal (applie s to non-numeric results) [facility] Abs. Basophils 0.05 x1000/ul 0.00-0.22 Normal (applies to non-n umeric results) [facility] Abs. Immature Gran. 0.01 x1000/ul 0.00-0.02 Normal (appl ies to non-numeric results) [facility] Abs. Nucleated RBCs 0.00 x1000/ul 0.00-0.02 Normal (appl ies to non-numeric results) [facility] The above 24 analytes were performed by [facility] [id number], ,[place] [address] ID Date Data Source [id number] 05/03/2021 01:45:31 AM EDT [facility] Name Value Range Interpretation Code Description Data Arabella rce(s) Supporting Document(s) Care Plan [facility] XHPCFi4fVqDHAcJn47/RIExgXZRop8BvHSclXIh5EGlyANKeG7FbGSB1aZ2pZLI8HBxTUcJfJyBzLAD5 [facility] [file] solid waste division supervisor+6FwCDllTLAoD9tSPt1+33/1AENsuYTUqg6T585jnDulqL3hULdB/syW9yeGs75+j2YR619jXg4hG bXxWw4kZSTysl/1p98lizrsqWn3WtnE7bgcmrgzqb+KZyqPiHNsWPZfh+a9xXp2QlnDv2lkzmxSl8KKF bfJzgdTKwkDM/ck+HY+LzJxHINBW0bOUz/MSDztTas dQ6+qgXBvOppqHF48baY/1I4/h62mSOpaMk8w1fhzZrA0x+/N8SFloPMejDSOHyu/W1UfqN6esc26ZDq Rnz6m3jIgXvX1DALe0g3mY10Bj0/0378n/fLy2gnavd5JDo6no6bv9vfwgRI/ff5b5e3G2BRkgqy9n8M AFuB/G5kA2JwxXP6Nqx5mkF7sl4Bt+kMlgKZb5AO38 qd45dkLPsYef4G+E8NUZu2Qdo2ub9k7+rez8G5a9KtQn+fYk5qW6hPPm2PYQcg0ewwb/ZrbvI5t/O8h/ 4UTT/V7wZi9m47uNNluOS+AuWMfbBcBtkXb7DhVSPbTV8OIRJjhFwlhYqxt778Zekdi9Ycwz+8hR4KB/ t73SoXO4+P1dFPky598JC87t29t2/M4kmy6GmT2ey8 [file] ASNdQhh7L4QkOLYrRp5uHFBFAb4+DRzyxAVkaQteGTECBcMoPQDaGQqfEWKEFk2O ID Date Data Source [id number] 05/03/2021 12:15:00 AM EDT [facility] Name Value Range Interpretation Code Description Data Arabella rce(s) Supporting Document(s) Hemoglobin 10.6 g/dl 12.0-16.0 Below low normal [facility] The above 1 analytes were [facility] [id number], ,[place] [address] ID Date Data Source [id number] 05/03/2021 12:15:00 AM EDT [facility] Name Value Range Interpretation Code Description Data Arabella rce(s) Supporting Document(s) Hematocrit 34.1 % 37.0-47.0 Below low normal [facility] The above 1 analytes were performed by [facility] [address], ,[place] [address] ID Date Data Source [id number] 05/02/2021 10:54:25 PM EDT [facility] Name Value Range Interpretation Code Description Data Arabella rce(s) Supporting Document(s) Consults [facility] BNICFy9aCnJJTrNj67/XHRvmPSOsu8XxRYvbYRe9IUewHNSqA0UfIMQ6mJ8eJXE9LQcGPyViBiVpQNL4 lbm [file] DYEXH2SCEe== ID Date Data Source [id number] 05/02/2021 07:38:00 PM EDT [facility] Name Value Range Interpretation Code Description Data Arabella rce(s) Supporting Document(s) Hematocrit 33.3 % 37.0-47.0 Below low normal [facility] The above 1 analytes were performed by [facility] [id number] [facility], ,[place] [address] ID Date Data Source [id number] 05/02/2021 07:38:00 PM EDT [facility] Name Value Range Interpretation Code Description Data Arabella rce(s) Supporting Document(s) Hemoglobin 10.5 g/dl 12.0-16.0 Below low normal [facility] The above 1 analytes were performed by [facility] [id number] [facility], ,[place] [address] ID Date Data Source [id number] 05/02/2021 05:45:33 PM EDT [facility] Name Value Range Interpretation Code Description Data Arabella rce(s) Supporting Document(s) H&P [facility] MJFJNi9uKeSWXlVj81/XXUbuXYRjv6OjGKwsNJs6QBxxCDNkR8PsRGM6yU0xNOG6SNzFBeJwFxMfNFS7 lbm [file] CARLOS A/mfByngcBqGx9Bibv0yQNLVwc/7E75MRheu9IHXMUS2m3k+y1yF8QaVHZfP0sCq1i59jMaA62+SOUo [file] Yx6HG2KGjkAPSgx+HIioB8/SENIOR CARE/ATuCLyfeBH5tgi3UmJP33Pv+TKFAvbuuYKaKRMsecaMdy4qaGUVwf [file] zXX979KKZTttLYJThjPdZfV98HpqJJJx2bfxy7mPizIjwxijH5l+Y+5Dp+hdGC9PmPhUShVi1bSj+Juan David [file] VhvtTb+0RjIIsAtjXjW7SSdoYJi5Yep9WEQvBCk5kZ4VRWO/3vFef0pHlItz3IhLiKL44s8rrRitC/Kristian oX2rbciFrpzo2IErI7Wyi0tHwQ0yBhIwuJ235xITb+ h63y8p2qatIO4GJUlrZnyMSZz/UnyxiQm5YTyvQr+uU+tB4NAAoTU2nnjVkSHsRH88jFbYz/jnQ3+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 [file] NjHBeK1m2CwULxsiiZkcwRYcoYvjsciSpgijKj+ JPHw2t1RmvSefiXxEdPwZ316DiyjzPNP6LohVsEGz9rB/Y2dUYKuuVGKQvPuWlIspqOd+WmqBU+FpD32 F/P2CmnCgUenK/L8/XYkg34YRFdMU3JeQFY6QzGL7LC+WxiOGZ16e34I50M7Db3AP+/Bi/ZGU7qCkk+m b7QnaHSwWfq/5Up6nji4/Z9lftYnr6IuIhRiKERTGY O0YKbpKlu2RFVllgfLViamD1e3vEajkT9Er8pE+al+yNV5sWA0IiWGeiMeHmojHJKkZ2jwdG0indvFgM 3xyTRvmKKY1OFY2cO/qUnef1OaHaOWpV/UeacFZyoSoT+9cgBP84AeOuxREckfy2NDtcj4k4kVEf4QBV LGxXDRv+Um2D3vkFrEB+Angel+77BShKkG2hy+Pnx4xM [file] /tM+oNcP4RmqyGzC6gb9kXLfQzysyYjFT+dUctH+SLEEVE SETTER SAFETY STITCH [file] EjIOnwlKMkhbQnq+o9+20oRJHG4l9Pwr4N7UsN a0gmV3Ofn+TdBnnVoS8a5FoIS/JN5B23tyisY4b65FaSCEFaHkQLVlkZYyE/dhTIIlyL2i0+/s+f8v9v c1DCmkPCxpOafj6vZ33e4NYPM2RgNYq0Nex8eNyZ/vH+FpoeDNMBqU1LbLDgt991/5chhHLvMvEU18mw BRXwEsT3A3yV/SmPCmytOo+vzyLAC/nwtF4POw+gnq wpUOLHf3nkT7Eikr+fR01H+m2qWPqhFJdQZvJ1AY/t9Z4QaL6Ct+SKrzLuiU3zmgzfOrRNkYJZieyfkL LQLqUYXTNuZ7GKcStWPlTsHzg2+2wH9J1l2QwXhVqpE3MX/OhT1rVvYIZrmPNu/lruQSy2Vl0UilO3B9 MPjYUNF5BEvzFD8FgnXYSKojOxVf/e3a8ml23SO3OM 0i/BRZCVWsMx2Ojm98F/ld9qLNEEyrg1Aidn8N+I1A7QnK+YoabC6Efu2SDaE5Jy1v8eMYscgVQKphdk kEKmdxa0sddblk6fcFYMejxoPPRTHfpqewt2RnHLSuj+cfaf1cDb2qUdnwpFzl//wo+jHmgkirK6s5bh [file] JtxF/XnP9zgSKIdZ3ESr7gb+aHsybozridTbdUHF8H2Zt4cb1GkgW9+evp operations/NsuUs93AiSqJYSLU1dASvX [file] C+rgy8s10p+gHfmCQ3HV1nXoy0Weo+meNzWsD [file] /H1CE+PGhLdrzyjcwsYrxV2B7cDvw+7rzOa80t/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 [file] abdifatah+XF8swJ2wA7puB0nC5EnfSjaV6pSPJ8nJLLxF3+m+b4f0ZlwCNeF15RyNGhO7U/JQYM1wgE2Y4Dlp l1cEIhtJV4Ulh5Qf8qEdSXNdjfEpjuqj/gy277Lnxg XYfmHnUuAw5m+u/2QClRWa2TQgEpoA4+Cvho5H21vIQ31sEQYEi9McEJj7hydsg6qzFemprBiZY0vPmj G9Aa2HUACko1udxFdx5JoEk/j8shiaTCzM+yLOJh/DD26jA23hF/z3d1hZw6ZdwsMMcaAqdg3M+MNj0C ngUB1KBptTJ6JVFjmZXgUbvJiPj1HNFG9aQMxrUP26 GtpT7G+RWrdOSU4KuptVCYNIKpD5FJGR/FyZUWDyV/N7htQjn2gGiwxD7+Mvdh8RhGqCgA4crN/7LdL0 w8qcKEDbOhYnTvfEQA9Vb7qG5RX7ck35oTMQx5bkRvt1d54pYZ5x83wBqfllRqW1OgsfBZd++VA0nain DI0mUcKRF8q+nSKgpkMSDM842vhrqG9iq6smqBWUFK cGJvVrvAg9HOd74shClH+5Xy4m98jnrKWXMZ/dDLAcgClMbzcNMG5CbdvM0C/v0EHz7pEY/CaKwfxHmE jccZ5mSTW3z+E8ffcP5M3jnUWNsC0sei1GyQ67imETCfAOKveqBtNfGvCweNy987Zv4QWH+x5BgoYIud NB6FnaW+78/OFm/gab5AjE/RluPi0vIrqo4FSjkpmA T/8cWbkKJgaj7F6DTQDQWCCK0GaOsnalYyzUyhBeDqN1+3lRBJCbNEaKfD0G0oD3UhXpQuuC9TsvlPWN smF5EgvTUSzYGUj2+nkrH8murpZTehrqxhWbd7IPOKF9t+uiDpphbvnvxehN9EwMBgPIGa6Fg+gTtmVU RCBTVwi4AEv+mGLOq/EYAqKGXmJDfVbGm5B2gxXWi4 unEYsp6mpt20FtFEipzabsDHUAxgaMFWyly8uyQe0oALzQ/g1BDgzAyEPSQrYauNIJWPAA3RtFj/IlFO braille transcriber+R40rbdWtUKKYHyL6k1EgASxSh9xdasU1QiwmyaYL5GkjJy9mK0hJkGhCrN3uJkDPC/TSSbLsuc1U [file] Zp88ZQmJxRG/o6sugj9nq+eiTCwWvshyKa9B7t+Flag Signalman [file] QwXeOiG2UroXYXP4YApxwJzG5QdQxOHJKDUtAv1tZPXvlV0rjfJhCNoJsh1Ry+0Mal5lJqyZLmtJO/Carlos A [file] 7No6kn6+9fyeEGTqiTCgfjGykcZ/Kristian/e0mZVPckLVv 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/Qe+swuARtdMCi2g9Hqh/fd2zISF+edyLe+fSolAvZ4od4O3W4xGOeW+58I5QF3WlyPAuTtlc2f/Gr [file] P4+69Twkv2RnvWwxPZQdcTbKPT9mZjqrHGMnEH [file] CARLOS A+vuI0PWs9zgOTKlHHWymXc2Kid/HC0Lt2FfHkW8rWQYZsAtJHzLAGo7gkLjtVP8NA2YEbA8r9w6gds [file] t5dtU+Ju2m4vWKcgF3NwmuGgmDVVk5F4CZVytl855FB+mGUAg7eI7K/tsYDIoPkMZ7D6K1rTPrqiY/Walker Av8y4mq+GKmZxb/vNMti+tfqPaHUhL6qHDc [file] 30gC10bYaRD83ae9WsiamHHacSbCM86KIKBRrZU/Carlos A whzviFB4FkhEBSz+HCa/Dhdvpdspu2jDa/17qPd0JT2G+rl6tW063/w7ghAN63r5e3tawlaKKBsJWafp Z/3A2BMMEfaZP84KnLzWnmp2itILnVQ5RKOEctPjJ/vuma+ae3xjPDg/zjVOZgte+uPnk0emS4Ccep79 kN6YIKxDS9WE79TFGJ7dvnE7OFvPTNsuAYrnfZApE+ T42F687nBbjmUCIf4xyqXfdXIPVfw8nn9dxZ+8e9IVLgUMs3IHX3AINDqaDBPo6NLrcu1C8wIsUksdea vgqb47qIvL9V7S31V5FxsDy4Q4ub8x7kLmk8XPr30nvkFX/Qqvk29Y1G6lNbfDiEm8PnqE+iswPB2SOI gfLECOWk+wujUxhMQBrQBwP9uQmQroUEUETTq1jj2a iZF4/zeGkWXD6UeJnLAne7GfqUtLjI6WUDxkJuRRG54xE7OXNVwFTRHVarLxYlwJeLqnYWIFcsHEQ0dk dGLoWxnblVOjatRPzFDtR/Q2pWvjhrM9Di3dNP7zRtFr9YIZDnc2x0zwgoVN32zCbBNJiQAHWcGKxK5e mGeZPFKtVyT/Okt+V0cWkslwRF6ZxgXRkXDm+Y0/ [file] 3rZ6/BbVtHJiAMOAfmltABGWUHKLXWkBYcGaQcdEPVxjH0QrO+DIRECTOR EMERGENCY/7tbtQxeSBu5W+fbCOV0tKBO+uF HOQJ+m05n8q74F80bjrUvnp7iOCukBpM8/R44wRbw1OE0gd23Geuh4OJ7c2xx/5/DGVCla7kNgixZ+1P t/NU+RKqU8YDHB0vDvWKiHy97rm73+xA3e4HMp1SD6 uDetSVC16UmkVqMAGoskZdttgX7n649/u4cVmnjJ4y3AGrwZ0gsJhDYnU71/2RqAo3l0lFqu7mKCaC2g 2ezvAGroP7741gqf4/kc12RrG4n07xfUyCWs/ydz11Xe3u3LnjRBMnSIrE+nlpCKNUi8Wv8SP2QOclqP oD//cgNMc0Ex/CgegcPFQmlrCYFxZIY8QAGKAhG/Bt XZIYlytihwc1LvtDv3RPm/bvZ7lZh1mf7VFDZEzxFWV8sqlelAitsIpS+dJpyLOblm5YlUuvvT9FmCcP BukDZnXcqECZKWjMYBSanVRxGzkHl+NT6USHBH7o5A8zjgDgCeSDNDKmelHOz2sIy2QyAr6C/Trde55C IFZQYBTaZAHU0E/O5GO2eYBSCKoOSTQnNcN8fsRmbN [file] FURNACE LINER+Sg9BpHKO6h0IeUH1hOoi9AF0ODaXwazyFrYtyTb [file] urYV1shbOOsrIU7cPoC/u/va13+Die Maintenance+aWsTd843Ke+C35vYPnmcVwpfdtzxp0Jx3vsV8v9EHLFtVOTQ+ [file] Carlos [file] y8TQkYKBv5gvdUgUyuvcn5E39r3jEn7uFiDr5QJn0hoMR69aYsBC6x3Cgw6Jp7mUIjeJivJByBHh++FURNACE LINER [file] enjLsPhZeCAbrwt+qM+GpxdTQ1tZ/j4UAsBTmseOSRAgb71LRgXwVeWdSUkQ3jZLvAi3ToYAFq7m/[facility] [file] AgICAgICAgICAgICAgICAgICAgICAgICAgICAgICAg ICAgICAgICAgICAgICAgICAgICAgICAgICAgICAgICAgICANCiAgICAgICAgICAgICAgICAgICAgICAg ICAgICAgICAgICAgICAgICAgICAgICAgICAgICAgICAgICAgICAgICAgICAgICAgICAgICAgICAgICAg ICAgICAgICAgICAgICAgICANCiAgICAgICAgICAgIC AgICAgICAgICAgICAgICAgICAgICAgICAgICAgICAgICAgICAgICAgICAgICAgICAgICAgICAgICAgIC AgICAgICAgICAgICAgICAgICAgICAgICAgICANCiAgICAgICAgICAgICAgICAgICAgICAgICAgICAgIC AgICAgICAgICAgICAgICAgICAgICAgICAgICAgICAg ICAgICAgICAgICAgICAgICAgICAgICAgICAgICAgICAgICAgICANCiAgICAgICAgICAgICAgICAgICAg ICAgICAgICAgICAgICAgICAgICAgICAgICAgICAgICAgICAgICAgICAgICAgICAgICAgICAgICAgICAg ICAgICAgICAgICAgICAgICAgICANCiAgICAgICAgIC AgICAgICAgICAgICAgICAgICAgICAgICAgICAgICAgICAgICAgICAgICAgICAgICAgICAgICAgICAgIC AgICAgICAgICAgICAgICAgICAgICAgICAgICAgICANCiAgICAgICAgICAgICAgICAgICAgICAgICAgIC AgICAgICAgICAgICAgICAgICAgICAgICAgICAgICAg ICAgICAgICAgICAgICAgICAgICAgICAgICAgICAgICAgICAgICAgICANCiAgICAgICAgICAgICAgICAg ICAgICAgICAgICAgICAgICAgICAgICAgICAgICAgICAgICAgICAgICAgICAgICAgICAgICAgICAgICAg ICAgICAgICAgICAgICAgICAgICAgICANCiAgICAgIC AgICAgICAgICAgICAgICAgICAgICAgICAgICAgICAgICAgICAgICAgICAgICAgICAgICAgICAgICAgIC AgICAgICAgICAgICAgICAgICAgICAgICAgICAgICAgICANCiAgICAgICAgICAgICAgICAgICAgICAgIC AgICAgICAgICAgICAgICAgICAgICAgICAgICAgICAg ICAgICAgICAgICAgICAgICAgICAgICAgICAgICAgICAgICAgICAgICAgICANCjw/kAVpF8bsvMVvmnP1 U3pwKr2QCt8XSP9lc2SgZHHhGOhtqhTxNpsLIgHnXXDlSihOPue3KKsnLV5ZfJQgA9VoN5QaHHsfNQ3R WLZkJCTezGMoVSPaAFOpAcV9KTWuEEfnAQ1AcRUuOZ raOVRkFBQrNfGpWPNlHHHsTLJbIGGpDSKRFXCoMTQdHdNaRRNzWYOaGZbaYISHWMY4IGJfShKvKVwcLO 2Kj0PrjAT5PCq+Nq5LXW6bd6PnQBb4GWVaMY4kug3HWEwIIbOlX1XtvyQ0UDU0CXZvSs6IKOCbDTVcnJ R4YSFgBBHMRkPnK1AbaM23LEHZKg7+DQplbmRvYmoN ZgR4LZYnt2NbZJv8QG5XXFElCDq6fDUfLFPLJQZ2GXPotWsklDFSYGKrcBGdPG6HLCZ2HJesKcHmIbOx ZZStUFltIPAAWVgNWwVlF9Ttp4UcBzH4KOGhGnCqRZtxCRTxCgE3DP05sXvxNK8CSEOlEQFcIA81BFK4 GPFuNh3ZHo1PTfBxXT2xjb6YPCIhIZXyUxnBWau8DX pmKJ2AcBVqM0GnpWSqb7dPIqQkG0DBWXJpSWVkTy9WVUFxCdMlPLPxGXlyKP5pKUFcIMEYlZimjvV7DD 5KAF7cdbFuCX1YUrAvRf8cCj3TJxHkC9BcT0WfQAUwKEMENRctTL4FTMwdMK0tMG3Dq1RWdLMcpG1xpl 8IPWGrXFSzTkrziz0LMkgiN4H4sKryMATqWXTkCVWJ ONecXX7NEIWhNPE0ZED7EqCgHUMQIbIvB78tTO4BT9Vnk13uInL9JXBbQsJiXFnrSQ17hGflrkNrbYZl bOvwCJ1YEu7+KFlflbAfRqqHIksfZBVKZaUeJFoPKnBlACYoDDFxZJGdWvI4MmImDn6DZFXvQMCfYLCf FkIpHISiERGhMPbmPMOqPtB7ATv7LEGaUYAqBC2ONg UwHFZ0LmqiPSCpDEWyBHNtbr5MZUIuOVXrHPO9SrVhKUQkYBQjYThqDSEzQDSgCCA3CNKrXLVwYT2KCv NzXDReMILvUVycLCWkSUZwpn9YEJMpDEXiOmC3ZOZcQSAeGJClEFmwICFfDJU2RMg5RJGeBKHwCV4IKm GqHYBfTTfyHNYeRADwSNPgqd1QTFBwXPTySSD0QhPo BUFhGXUyRBdbBWFuOLXvWnZ0GBZlMFKrBC4JUoPwGKQfPHA7QsKbSVEoWOEgog6SPYAcRTKnCfW5CHZo MQNoILSbAYbkAHEzLUZzBiQ6UTQmYTByYN0CQjXtKARsFOClEHOePXLqPAGnqa9BEXQcXAEjTvN2PNHr DUDlABVjLVevDWCuRRIlNPW7BBYgMCJaSH1LUePuIK VdAPQjAZKkDIIlKQVtcd3LBTEsTAXgFaIeAGFpEOFcBFJjFHpkPRWnKZD0ZeAmFHXoYHFpWR3UYbEqYS VrEJgmWMypGJTbCJMfxs3MATEjVJIfBiKtTHZyWJBrONVeBOsvVGVjHGE8Cxv1WXNoQQBgPK0GKqMhGC JuLBk7MIezLFGgSETwdb6VIQMaLHGxCBl4DzCmGLWm BCHcRXsxPIVjUGS7PFB7SLEbBROlAT4CGeEbLWTwNUf6XOszJYUsRFSfpc0ABWCkOEAiCGO2GKPpUVUf QBHuWIxuYAWpVOVeBooyTYRySVGsMI2CKrOcUZXqSlJaHcAuUXHdFRIyia3WZDXvNGYbLEMiVnVlONWm QZZaERafEVMqRRKoHjZ9WRAuGAXvTC6RIrIvKSYuJq G5JhMpWDNeVRStlj8SGHFnDTAtUmg4SoWeBXDrAROwYIpaTLCrINYtSCoaTCYoLUYdKU6CNrIqAKZuAo HyGiVvXCKqTTDgce4QWGJgOWJhOOT9IwMjELUsRGHoHXzxZGJnKBX6RCUrZXXzJWTwEK4UPsTdSKSzWb FuRmSlEKGfNXDdit2SALVyNQDdJpY8BHPnNYJvRBQp FDgkFFRsAMW3BTFdYZNvCUZyWV9ASnHlADM0VuB0LBCyTWKnSEZdds8UPDIeIqFuGxu0FXSpSKLjYJGp QEdcKVHtBiG8XRE0SVPwVGBwDZ3XWpLtPBT4Aaa9QpEtHACaNOCuld1PLFXdPfCdNWU0XmBoTZUnTJOz WYx2fkMgjVRsKWg9IZ9ZD5CksoVgBSpROd7Rw125UV R5HMJfAg5NV8bfNi0qEFYxKGDOGd3VDKd0OfQhSmUwNzVxC2U3LsV5OSCeBIT1BYbiYnBcVIElI0U+ID otTQKrFRCtJrYdHRN9EMpcOACdQcnpQCYvJALuOxHcNB3cMFKGBz1+GDgcfTXgoHxxWRCCIgF1Obg0AX bMAoJnQQ7GKQm= ID Date Data Source [id number] 05/02/2021 03:30:27 PM EDT [facility] Name Value Range Interpretation Code Description Data Arabella rce(s) Supporting Document(s) Progress Notes [facility] FAKSMm8eXwNZKmKj39/VUUahNPGtu5XxXJljMQi6ZLhbMUKeK0TxEHV6pD7eUBX8VZhPEbLjWxYgWOW2 lbm [file] Y7upYgFSuzBkpnKV9BDUBIY5TGTe== ID Date Data Source [id number] 05/02/2021 03:11:58 PM EDT [facility] Name Value Range Interpretation Code Description Data Arabella rce(s) Supporting Document(s) Nursing Note [facility] GORQOi8yFgPUDbDc88/NZLhaSHKwx2LdICymGQi6MPhrFWIhY1HdOIV1tE9mSOP0RAlUUfStSqDsQAB9 lbm [file] AgICAgICAgICAgICAgICAgICAgICAgICAgICAgICAg ICAgICAgICAgICAgICAgICAgICAgICAgICAgICAgICAgICAgICANCiAgICAgICAgICAgICAgICAgICAg ICAgICAgICAgICAgICAgICAgICAgICAgICAgICAgICAgICAgICAgICAgICAgICAgICAgICAgICAgICAg ICAgICAgICAgICAgICAgICAgICANCiAgICAgICAgIC AgICAgICAgICAgICAgICAgICAgICAgICAgICAgICAgICAgICAgICAgICAgICAgICAgICAgICAgICAgIC AgICAgICAgICAgICAgICAgICAgICAgICAgICAgICANCiAgICAgICAgICAgICAgICAgICAgICAgICAgIC AgICAgICAgICAgICAgICAgICAgICAgICAgICAgICAg ICAgICAgICAgICAgICAgICAgICAgICAgICAgICAgICAgICAgICAgICANCiAgICAgICAgICAgICAgICAg ICAgICAgICAgICAgICAgICAgICAgICAgICAgICAgICAgICAgICAgICAgICAgICAgICAgICAgICAgICAg ICAgICAgICAgICAgICAgICAgICAgICANCiAgICAgIC AgICAgICAgICAgICAgICAgICAgICAgICAgICAgICAgICAgICAgICAgICAgICAgICAgICAgICAgICAgIC AgICAgICAgICAgICAgICAgICAgICAgICAgICAgICAgICANCiAgICAgICAgICAgICAgICAgICAgICAgIC AgICAgICAgICAgICAgICAgICAgICAgICAgICAgICAg ICAgICAgICAgICAgICAgICAgICAgICAgICAgICAgICAgICAgICAgICAgICANCiAgICAgICAgICAgICAg ICAgICAgICAgICAgICAgICAgICAgICAgICAgICAgICAgICAgICAgICAgICAgICAgICAgICAgICAgICAg ICAgICAgICAgICAgICAgICAgICAgICAgICANCiAgIC AgICAgICAgICAgICAgICAgICAgICAgICAgICAgICAgICAgICAgICAgICAgICAgICAgICAgICAgICAgIC AgICAgICAgICAgICAgICAgICAgICAgICAgICAgICAgICAgICANCiAgICAgICAgICAgICAgICAgICAgIC AgICAgICAgICAgICAgICAgICAgICAgICAgICAgICAg ICAgICAgICAgICAgICAgICAgICAgICAgICAgICAgICAgICAgICAgICAgICAgICANCjw/yCFkO4weaPCt ilJ0Q7ysKv1OIw9UMX4jm6TqWGYxWDzmrxHqTuqUSiOqYLEqSkrAKah2DIxpVR0YuEXkX4SyM7XuUNsw XJ4TIGYdLQBzqICnUFBeSNXeGfE4AMBjFErhTB2NtH FvUJorNXIwENTsHA4ZRSOpU267vcDjHP1HXd4ODuMeDH2xre2QJlVxHNRxJkpGZqg4EMasTK3SmBZwmB SxRaXnTIAAMoAuK3wmj5TjAiWqTRLCBGbyVL7Nk8UijWRaDUq+Oe1HFV0so8AfIWcxZdXwFR0aht2XZH pIGpErS3LfwHjqNV37ffGqfhztDi13CCXtlBYRtGkg MFWYjG1qHGWaK3ajCVPXIGC2RIlzWmIyYkEeLFJqJhneLXATGQgIQrZzL9Luv5EqWgU3JTIdTyGaKDya PLJnYuI6VG60wZogSJ9VCTAdBERhTG88FBSyPVQgMx3RFs5QCiHmPX2rtd5DOmUyTAQeCycXMoc2TFov BC1IqDOlY4TtnDUfd6rTCrBoN5IJONYqFDTlOz0TEP OuTeUqVOFzCLzoFT4gTOBgGSDGgKzwqtI0BO6UIY5afiHvFP7JQaXmNs6xPz4FZsBzW5FyH5XdFXCiOI CEXVjgNZ4MSHacAG4tTT6Yy9YIlQClqL5ycz9YUPAqLTPbCultuz0VJbeqO7O8rDebGJTyTdNyFHWITJ nsGJ1BCKNvQCD8UASeJPLfAJGXYfMgI17cGO2RX3Ro k43lLoR8GJCvQiOyCTecQM55vIfzquZguMRxzAbiQQ0VWr2+DQplbmRvYmoNCnhyZWYNCjAgMjUNCjAw BKMgOUKkWYAeQkN3PaOfKx9AJRGvWXFjDXXuAiDrXCYbAFUbDNnfGOBqNHZ5SlN4YVGsJLIcOG4NSaWi JFBwFyCpUPTgRBEwXVDfov9YXVGtFPCfJXA7AbXnOJ SqDKJgHRuyUIThYNMcROmxFMThHHIkRR7SDxThKZNpMVBqVETsFQKgUQUzgv3ZGKItJAIsKeL0YzKgMY UqUHUtKKhoRKCvLNQzMECtHIOeODIcAW6RFeClEHRnABZ5TazdSXIoFGDsbf2LJHHjWKOcTyG9YzXyMC GgZTNzLLhgKMIdJVHtRJr2ZTZcQGIbHE9GUiTxXJUo NGLyAoCwWOSqSCSfix8DJMInJANcFqSzHPKuNRIvVXVrQWcyEVAqCMF2HsPtAYPsCHVvDT5JAoOeHPXn LBP9IPUaTMHmFTMpiw5JUFLePEHeLbE9EPLzXVHgAQIrRKohDJBmEIX7BwW7RPMsWWAoUS6WUtVpCGZt GZteCmzgKRYkCUPhvs5CRCDuLWLzXFC8GcPhZTYlPJ WmLXjsTCZgUWY9ZsI8ZDLdGPBnCT4IXmGgZMJwDDkhLYCeGFImGESlfn9UXNDyYGBrBXC8GIApHGEyMI WcYZocWICxGHRiTUOdCKQbJKFzLC5CYsZnBMEsElM7OWziDEExQDOdam6BkLYslOvotz1XHUgSAs9ImR hwKAL1IRdqUj7rgMYsMUGaIOGAYa2GshMpEMFnBNNQ VJaaTHRoVCZaUGq8VyptFKS2ZXlpJrW0D2JbGBJrTyA9CNQzFGDnViM6VGDxWXB1K3OtBdd5FIVpUFhu MxF1HCFlDVDqMNXnWxH+HL7vICj+Wj8Ro7KujhR8kiIzZUvoBXo3Ur2VHZFJE2DVHq== ID Date Data Source [id number] 05/02/2021 03:01:14 PM EDT [facility] Name Value Range Interpretation Code Description Data Arabella rce(s) Supporting Document(s) Care Plan [facility] KQZESb8gXyLWMcLm02/RZWmlXAPnq5PyKBngXNu7YZhgKZRnD3EeKWT7zL7wZRW3BPgCCoPwQaLhXLW2 lbm [file] HeWL6KYPj= ID Date Data Source [id number] 05/02/2021 02:32:34 PM EDT [facility] Name Value Range Interpretation Code Description Data Arabella rce(s) Supporting Document(s) Nursing Note [facility] JCVYJp0dRjYIMqMs68/GBMwwIFMue8ZyQRizRBx2XNehQPNeU7ArIUV4hK7wMTE3LNcTBlJyDmWrHPB2 lbm [file] Oh8KLwN6FNJ2eDJpBo5WKgT8ESBFZaAdZS4GSXs= ID Date Data Source [id number] 05/02/2021 01:51:03 PM EDT [facility] Name Value Range Interpretation Code Description Data Arabella rce(s) Supporting Document(s) Progress Notes [facility] BHNDFm8vStENJkNx77/OPVibTRHje1VdTDbgSLl9QPfwZIDgO7ThNAY4pO3dFKS2QDiTFiGyJiDsJOP5 lbm [file] l7CM3NZCS8CSOsGj6OMWBcXU1YHDHoPBAuVLXZLwGf OFRoCiCeKGVcWZKEEQvvQNWhA5NmSDI6YBRfCg8MHNXzCG9DTEKiVfMcCKS+Of2VLVXnGS9wjcRiuTR6 TIRE SHOP MECHANIC+Cm1DOZWiFVd7G4J3FLVjUUd3J6UEN3ITADQfBXdlSJonYEFgBTn9H4R7FRBxO5UPE0Rlquyuux0+ CQ6XL73VJYNePPg4E7J9pKWhR8L3rFdQmVM8HT2YHL 1TdZk0kBQddQ7+RB5QY2MLQdBpIAs9H1H1yKWlM4O1gIiCzGS0QG7ICY4LeSFhFFPvffQvIo3sP1HXOL sJBnYIWWI3CI7RiQVzSS8HoCBBF7PzbAGyLq5cYRqsmJUhhF3jHn0qTItgDN2SWtCBDBrKUON1XQ3TgF BlOG6KyKVSM8MmxFJxZd7bHEjwxBVmik4+JT0FGQXn Jg2UUo1+JLkzkuDvDjpJFjI8XJHvt2XzIDg3WA0WSJ5nkUlcTVI0Ss2ThHH4hBPnL4xQZS2MzELrU93h uWDlAOKxLp0PRhB2daHasX9OWQ60gHQdv6O6TUFqV3mqXUjdn39zHMzlPVwLCF0fBEZYOQmaPDeiLPJ4 TfTkuoteNPDgZa1HRsQuEXz4lJ4hoDR0USZ9UavolR QqKOagKdKlPaZyEkX0vJgcrke1JZjeVQ0cVZxaizpxPZAyXfx+PIolQGUkBJFbJahSPBSdzV4djaG1kv NuVEuilYTnQj5kh2o2BfzgCk8eMg7tYIl8EnJmWjOnZNJjVn4gpG09FUhfalMcVe3DAnUiLCN4Z0JuVb pSREY+PJbaZVskcSw9sNSnDVCcSv6VETLxFZIzWBHf ICAgICAgICAgICAgICAgICAgICAgICAgICAgICAgICAgICAgICAgICAgICAgICAgICAgICAgICAgICAg LENzMJOeKTNiSGNvQDAoJFBsFMRtPHRgHYHvAXFyHD2ZMMLoZKKeWNOzXYDrHGFlNLNnMHLbZNHxLNTn ICAgICAgICAgICAgICAgICAgICAgICAgICAgICAgIC GzNEHyWLOtJRInCUGzJSVpKHIsYKGwGCYlZSJrMQGvBOItAZLsFFKbAP9KTWAiNAXkDNEwSNZgEBXkCH AgICAgICAgICAgICAgICAgICAgICAgICAgICAgICAgICAgICAgICAgICAgICAgICAgICAgICAgICAgIC MwSSMoSEAoQPVgOKJvGWLjPHOnJUKeFX2IWAUsNUSm ICAgICAgICAgICAgICAgICAgICAgICAgICAgICAgICAgICAgICAgICAgICAgICAgICAgICAgICAgICAg TUQaTAUrFSQvAXMgAHYoZGYeIPEoJLIbTYJqTOBwMWJqGZ0SKDJnXKTmHSJmNBHvXDNvROMjTZQzSIXd ICAgICAgICAgICAgICAgICAgICAgICAgICAgICAgIC OgYVPlNJYgJKJvONLqESYlHHQoXLUdWOIqETXuKNPmNHTnZHHeKGHpEJNyHC6JJGXsEENhIVCwBSVhZP AgICAgICAgICAgICAgICAgICAgICAgICAgICAgICAgICAgICAgICAgICAgICAgICAgICAgICAgICAgIC PiKJOpIOJrWSUkQIQjFOIsNPSrDINeJIZaBA9RDPXi ICAgICAgICAgICAgICAgICAgICAgICAgICAgICAgICAgICAgICAgICAgICAgICAgICAgICAgICAgICAg EDZrJYTlWWOoNLHhPZBmNVYeMKSbPFRbUPGdEYLmMDWbBPEeGQ6EAFSfAODuMXNkNRKuNZYfJYFyMGFm ICAgICAgICAgICAgICAgICAgICAgICAgICAgICAgIC ZyUYZiEBTrTZDdCIDbBCBoFYOyLCMoNSKrOEGbFVKwHLPjYYYfJJGeBRGtGXZqGK6QDUKpZDOrZSHmWD AgICAgICAgICAgICAgICAgICAgICAgICAgICAgICAgICAgICAgICAgICAgICAgICAgICAgICAgICAgIC JqTAYkFVNoUFMkRZXjOAXoFWBiINOiBLEkEQVnZS8C ICAgICAgICAgICAgICAgICAgICAgICAgICAgICAgICAgICAgICAgICAgICAgICAgICAgICAgICAgICAg BFOiBCFwKQUaITNuDNEmPSWhKNIqADIfCIJrTRCrJZTmDFYqEDIvMR1UTB22wWMul5W4BSXyJM0bucp/ Vb9DGNkiswLqkCVtWN5MYqXyLW1kcw8REsXwPB5cpq 6VMVxZPvPeW9H9xXWyMVSwTFFZUaNmI40yRIexHw14OGueIVRnZgWvRWz7Ck3IUoMeX4vjAMWqZmZ2CR OuUbDyHPlhNC1Xe6UrsAPvZAr+Jm9DNB2wt3KoXRgdWGWeCO7aya9RQZdSTaZaX0SqfkS6IFS0KDPgNr 9BSUJuJFPxjLKoCjAqQQCJSwSrV3IfxA14NINFCy2+ QJptblLfPypXUsT0NSVjk9FcCMn4ZR1SUCQrUKy5yKDoPDCiD3Gad5ZoYy57KEWfGsuhPddmEoNUFXaz LGM8MMjcRxZpBbTeERWwDYz6DjGJJYaUXaZkK4Diu5StIvV1QXIeTiWpDPvlKUPjSzY2UT94mOleCO3Y VTIsZVYrCL78XLJ3QPXiDh6HJd4FZoQdPV4ilw3ERo gdEQOmGlkAEde6XOzdNP4EiUIsJ3SorGOss1wNVqDpP2IBHKLnCJGtAc7VKLLnRcUlBCUsMBdvSL6iUK XlWRWLpGzqdsN4XP9ICM2bkkJpDA2ZXdKsWw7dDx9PLaQrY7IhX6TzMWZnLPFVKRnqUR3VZIipDR6lXL 0Mw6XWcCWrjK0wai4ONXZhWIKmOsfjsu8VAggmW8N4 aVjkMYHqIdVrTEAMASjnAG4DDJZzRJT0NULmKNMsNEWDDtPkM46zXL9HO1Dkq11cNxL7RMTvMyWkRGwx XQ10sKdvdyVxmGIcvVfjYX8XEm6+VGtrydVjUgjEDsloZREYIjVfZefVBbOsKJFbDOGyAEJpZsR1BrQb Oa3MENYsUKDkXMPvRhLaZPQfAGWpQWtzOKZqQVJvGE M6OYRqVBJtMM1EJzLtBKXpRnR1NcyeFEMrBSMfvi4CKZEeCCSlDFF0QdRiFVXhBCVuHBzzMLZhRYGwOl L5UJEaPZHoNB2MQbMrDRDjQQI2YAJlNKSkCZEdak9NIBSmABYoOnOiVXJiIVXdPVRmMOykCXOkDJFjHz GwBDGjHKUoHR8NMxOrMJPkHQT7IXjfHQSsVJGcpm4I GJXgZKNwYUp1ZaNbDQXdQOFkNJimNOCjJPC4FWQzHCOtRIIaWN8XPmYkLDDoAPPuNiSvAXBbNHRfjy7R DMQtERArPtE1RIQeOHRwFHVjXPlzVWDaYYY7XYzsRBYzMSCqFY4ROrTjTFGpLWuiHPwzHQUnKJLdtb3P JEBgDIMcPIZhPSZpHWSvZUFjBQyaJIVjUIT0EAb0JH JvLKOxXB7LIyMtCJZcVGk3FzynZPXqYOUvzn6FYVKsJEYaMCXqZGVeBUVaPWUmQMbwHDZdXOS4Toh0BA GoOXDbBV3JDfCyOUKfObM9IguwSGBkWFWhqr8TOTGbIDCiSBgkJZKqJYPqDCRwGBlfFIHrWOCqTQa7TR FyLIBzIP5IVcWfBXRwPqD1JlepPXCxDBHnlg5UTHZu BPMoDdj3YnVhRYScTXDoXOgwGQPbRPRzEOQ2FIJiTRFiIF9CPuYjQHAjAwWdNeemMUMoXODwch1RgQGs eFbytg9NYJuHAa5FpPcyFZB1HMfeRc6piTOkCnQzZBRCJy8IkaXqECGjCBZTCHqrJBAuDKH6XqakJFG4 QLGvJsQqSHFyDbI7MJPxHpNfPmSoK8O2UsR9KXXnUD XmSAtbTZInFTW4IMOvNQB6BcUwSbEuOFO8XKi+EF7vKWs+Ec3Xl3QivoA9qoDiSJqwEuVsGg2KBIPFK0 YNCg== ID Date Data Source [id number] 05/02/2021 01:17:00 PM EDT [facility] Name Value Range Interpretation Code Description Data Arabella rce(s) Supporting Document(s) Iron Saturation 27 [facility] Iron 97 ug/dl 50-170 Normal (applies to non-numeric resul ts) [facility] Patients treated with metal-binding drug s (e.g deferoxamine) may havedepressed iron values. Total Iron-Binding Capacity 362 ug/dl 250-450 Norm al (applies to non-numeric results) [facility] The above 3 analytes were performed by [facility] [id number], ,[place] [address] ID Date Data Source [id number] 05/02/2021 01:17:00 PM EDT [facility] Name Value Range Interpretation Code Description Data Arabella rce(s) Supporting Document(s) Ferritin 9.8 ng/ml 3.0-388.0 Normal (applies to non-numeric resul ts) [facility] The above 1 analytes were performed by [facility] [id number], ,[place] [address] ID Date Data Source [id number] 05/02/2021 01:10:00 PM EDT [facility] Name Value Range Interpretation Code Description Data Arabella rce(s) Supporting Document(s) Vitamin B12 324 pg/ml 211-911 Normal (applies to non-numeric resu lts) [facility] Folate 21.37 ng/ml 5.39-9999.00 Normal (applies to non-numeric re sults) [facility] -----Interpretive Information-----Folate Deficiency: 0.35-3.37 ng/mL.Intermediate: 3.35-5.38 ng/mLNormal: >5.38 ng/mLPatients routinely receiving high-dose biotin therapy may show falselyelevated results. Additional information may be required for diagonsis.The above 2 analytes were performed by [facility] [id number], ,[place] [address] ID Date Data Source [id number] 05/02/2021 12:27:00 PM EDT [facility] Name Value Range Interpretation Code Description Data Arabella rce(s) Supporting Document(s) Hemoglobin 9.5 g/dl 12.0-16.0 Below low normal [facility] The above 1 analytes were performed by [facility] [id number], ,[place] [address] ID Date Data Source [id number] 05/02/2021 12:27:00 PM EDT [facility] Name Value Range Interpretation Code Description Data Arabella rce(s) Supporting Document(s) Hematocrit 30.7 % 37.0-47.0 Below low normal [facility] The above 1 analytes were performed by [facility] [id number], ,[place] [address] ID Date Data Source [id number] 05/02/2021 12:25:00 PM EDT [facility] Name Value Range Interpretation Code Description Data Arabella rce(s) Supporting Document(s) WBC 5.18 x1000/ul 4.80-10.00 Normal (applies to non-numeric re sults) [facility] RBC 3.71 x1Mil/ul 4.20-5.40 Below low normal [facility] Hemoglobin 9.8 g/dl 12.0-16.0 Below low normal [facility] Hematocrit 31.1 % 37.0-47.0 Below low normal [facility] MCV 83.8 fL 81.0-99.0 Normal (applies to non-numeric resul ts) [facility] MCH 26.4 pg 27.0-31.0 Below low normal [facility] MCHC 31.5 g/dl 32.2-37.0 Below low normal [facility] RDW 15.5 % 11.5-14.5 Above high normal [facility] Platelet Count 213 x1000/ul 130-400 Normal (applies to non-numeric results) [facility] MPV 10.0 fL 9.4-12.4 Normal (applies to non-numeric resul ts) [facility] Nucleated RBCs 0.00 % 0.00-0.20 Normal (applies to non-numeric r esults) [facility] Abs. Nucleated RBCs 0.00 x1000/ul 0.00-0.02 Normal (appl ies to non-numeric results) [facility] The above 12 analytes were performed by [facility] [address], ,[place] [address] ID Date Data Source [id number] 05/02/2021 11:50:00 PM EDT [facility] Name Value Range Interpretation Code Description Data Arabella rce(s) Supporting Document(s) 01 - Product ID Red Blood Cells [facility] 01 - Unit Number [id number] [facility] 01 - Cross Match Compatible [facility] - Status Info Transfused [facility] - Product Code [id number] [facility] 01 - Blood Type A Pos [facility] 01 - Issue Date/Time [facility] - Specimen Expiration Date [facility] 01 - Volume 341 [facility] The above 9 analytes [facility] [id number], ,[place] [address] ID Date Data Source [id number] 05/02/2021 05:35:16 AM EDT [facility] Name Value Range Interpretation Code Description Data Arabella rce(s) Supporting Document(s) Nursing End of Shift [facility] BPHSYk0rMdPHFyNn28/BLElbKUKci2CeYAogMRb6VBllLYKzS5VfBSQ4pQ3mYJC0VTkGUvBrDnSbMSM8 lbm [file] ZrfBVQZr+vsH48/Usf4aDl9mlMSrHksH/zI8/p [file] ICAgICAgICAgICAgICAgICAgICAgICAgICAgICAgICAgICAgICAgICAgICAgICAgICAgICAgDQogICAg ICAgICAgICAgICAgICAgICAgICAgICAgICAgICAgIC AgICAgICAgICAgICAgICAgICAgICAgICAgICAgICAgICAgICAgICAgICAgICAgICAgICAgICAgICAgIC AgICAgDQogICAgICAgICAgICAgICAgICAgICAgICAgICAgICAgICAgICAgICAgICAgICAgICAgICAgIC AgICAgICAgICAgICAgICAgICAgICAgICAgICAgICAg ICAgICAgICAgICAgICAgDQogICAgICAgICAgICAgICAgICAgICAgICAgICAgICAgICAgICAgICAgICAg ICAgICAgICAgICAgICAgICAgICAgICAgICAgICAgICAgICAgICAgICAgICAgICAgICAgICAgICAgDQog ICAgICAgICAgICAgICAgICAgICAgICAgICAgICAgIC AgICAgICAgICAgICAgICAgICAgICAgICAgICAgICAgICAgICAgICAgICAgICAgICAgICAgICAgICAgIC AgICAgICAgDQogICAgICAgICAgICAgICAgICAgICAgICAgICAgICAgICAgICAgICAgICAgICAgICAgIC AgICAgICAgICAgICAgICAgICAgICAgICAgICAgICAg ICAgICAgICAgICAgICAgICAgDQogICAgICAgICAgICAgICAgICAgICAgICAgICAgICAgICAgICAgICAg ICAgICAgICAgICAgICAgICAgICAgICAgICAgICAgICAgICAgICAgICAgICAgICAgICAgICAgICAgICAg DQogICAgICAgICAgICAgICAgICAgICAgICAgICAgIC AgICAgICAgICAgICAgICAgICAgICAgICAgICAgICAgICAgICAgICAgICAgICAgICAgICAgICAgICAgIC AgICAgICAgICAgDQogICAgICAgICAgICAgICAgICAgICAgICAgICAgICAgICAgICAgICAgICAgICAgIC AgICAgICAgICAgICAgICAgICAgICAgICAgICAgICAg ICAgICAgICAgICAgICAgICAgICAgDQogICAgICAgICAgICAgICAgICAgICAgICAgICAgICAgICAgICAg ICAgICAgICAgICAgICAgICAgICAgICAgICAgICAgICAgICAgICAgICAgICAgICAgICAgICAgICAgICAg RKSmJWa7B7zkIXItULKeNT1pLFp5Fd7+DQoNCmVuZH P3beElvX9NMZ2nq9IhWCpjEHKpq2VkLRe2EG0FVZSaHBstKA0KJKoqme6SCDFkHXRuuELCl4awEoWqAT Y0BIItDqnaXO3LJSUgX7yyupXcFMThPVREAJ4REuBmW9GdtW24JOPEDc3+CCtbddJvGpwNYwE0ZWApf7 RfWMz3MW1USZMvGjira1ChNmJqGDITQMxzCX7JCCC3 SDB7GXNuFv9CPSNzU417ndQzUZ4QLe3MIlPgFX0jea5IZjIxDQFpCjrWOfa2XTsuDV3SjHRzZSwPxYLq bG3gUYCkQLSaHiADxQwvzQThwEUTyOGxAUDeCNidmoWfKTleRCRHGPD4HFoaTyUuFmAcROAvPKshYjDU WRxNOtPfO7Xqo4ZyYuW1LDHbXpUnLPdvXWDrDiO0RU 23iVqiCS4TVYDgRZXtJB01LCK7QEUsTx2IGu0AMyOnRK3bqf9OWuupWQHeIgeIIzw9MJdwVM8JjQMrW6 MogMOlz7wOUxDjW7EVYUXcRHGaDq6ABAXvOxMcTGHxSAhnRW1hTDZzCBEFgQzsesS9UJ4KOB5brzWaXW 0EZdFuWa9lYr9SHhZlA1LaD5FxQMOzVAMLJOztJO9U HPheAZ7qAU8Cc4CCjGQzrC7hps1KABCiZCUzEkqamm5RZnxaX1H7sKudYQPtKxZbVRPQQPuuEL0QDJYs TCK1KOLoJLVpGPGNCjHiQ25oSM0UJ3Pvp41rOtH8QQJeRvPfFWjnFB03wTwtemPdqHWboHdtOX2ZAk2+ DQplbmRvYmoNCnhyZWYNCjAgMjgNCjAwMDAwMDAwMD BdNmP7BbOcAo1GSMKjMFHqBHDrAhWhJKNmKNXpRAqjOVJvTSDmXHI1HWNgWELtMI8AImSpEUZtIkFkZC JnBAXyBOTdir3PPRAgPTGaSVC2HgEnZDVsLLWaRDrzOCElZRQiTdE9WSNaOPUzDX5LAbBySCElWFP8Jy QzKELjDUVqiz7JSFZyGYRsNluxWRShLGKfCXEhFVyj TXJcDHEtGAZ2BMOhNAKtJC6UDkSkLQUoJMEwBWHsXWArCBKxii3COHSaYDXtRRM1DsGvSWZiJGOxHLqv VSZvQRJ5CUJqBCRqWLSjMH8UCyAhGLUjXCT1WSPcNBOuSCUhkd6LEWMeDCRaFhg0GTRkHMJlAATfSVws NCAeZLO3VzQ3AGJxJICgJL1LJyZcNDVzRFq1UQIaHC QqEWSzsp4HDWTsCCRgWrm4ClHoEPHbDDIgENazCDBzLMU3ORGvVKEaHGKhSJ5XOxNpUZQrOPq4ALPbQT JcKPDeed7AAWTjLMJkAMHiFYHbBLFuUVJcIJsrJUEuWXO2GtGuVNCkYHJaOO1SBuUuSJXiJgPiINVhZM FyVAKzju6VEGOdZUXvAUSfDoPhBZCkRTJvBVbwJANl FBBnFAW7PPWfNCRlUU1ABnUlCIWeRzO3OBBhGVZoZHFydj9ZNBTyTGRoJzP6KQBbWGFpAIJkAMrnVARy TWKcXIE0RWNyYVGjBK2IHkIeLUIxJaE5MEMbJFDnCCJjxj0UtDXhdHytkk3CGAoINl6YpIwwVJA9RVxp Yv4rrKKiYePzNGOYMa7PmrMyZFKeCQKJFQslLKYgSD YaSqtrKXQmYVXrX1RcHBW2GSB3EcEhNULbRJTpKDn8XqE0Q2RtYOQ2BMHiICCcAHZ6HUv5HuRkFEMrGH IwNWNhODk+GG5cXGu+Mc2Mn1GdndI2qaEoTUnjJok3ER8VMUFAR1FIZx== ID Date Data Source [id number] 05/02/2021 09:59:00 AM EDT [facility] Name Value Range Interpretation Code Description Data Arabella rce(s) Supporting Document(s) 2nd Confirmation Type A Positive [facility] The above 1 analytes were performed by [facility] [id number], ,[place] [address] ID Date Data Source [id number] 05/02/2021 06:18:00 AM EDT [facility] Name Value Range Interpretation Code Description Data Arabella rce(s) Supporting Document(s) ABO-Rh Typing A Positive [facility] Antibody Screen Negative [facility] Specimen Expires Date/Time [facility] PATIENT HISTORY Pt Hx Checked [facility] The above 4 analytes were performed by [facility] [id number], ,[place] [address] ID Date Data Source [id number] 05/02/2021 05:24:00 AM EDT [facility] Name Value Range Interpretation Code Description Data Arabella rce(s) Supporting Document(s) AST 14 IU/L 15-37 Below low normal [facility] Sulfasalazine and sulfapyridine have the potential to falsely depressAspartate Aminotransferase results. Baseline values before medication administration are recommended. ALT 56 IU/L 13-56 Normal (applies to non-numeric resul ts) [facility] Sulfasalazine and sulfapyridine have the potential to falsely depressAlanine Aminotransferase results. Baseline values before medication administration are recommended. Alkaline Phosphatase 110 mIU/ml 50-136 Normal (applies to n on-numeric results) [facility] Total Bilirubin 1.40 mg/dl 0.20-1.00 Above high normal [facility] Blood Urea Nitrogen 12 mg/dl 7-18 Normal (applies to non-nume ny results) [facility] Creatinine 0.79 mg/dl 0.51-0.95 Normal (applies to non-numeric resul ts) [facility] N-Acetylcysteine (NAC) and Metamizole em ve the potential to falselydepress Creatinine results. Baseline values before medication adminstration are recommended. Patients undergoing treatment with phenindione will have falselydepressed results. Patients on phenindione therapy should be tested with an alternativeCREA method.Toxic levels of acetaminophen may lead to falsely depressed results forpatient samples. Glomerular Filtration Rate 81.00 mL/min/1.73m2 [facility] GFR Reference Ranges:Normal Function or Mild Renal [...] of Health and the National KidneyFoundation. The [place] method used in calculating this result is traceable to [employer]OK standards. Glucose 85 mg/dl 70-110 Normal (applies to non-numeric resul ts) [facility] Sulfasalazine has the potential to false ly depress Glucose results. Sulfapyridine has the potential to falsely elevate Glucose results. Baseline values before medication administration are recommended. Calcium 8.7 mg/dl 8.5-10.1 Normal (applies to non-numeric resul ts) [facility] Total Protein 7.1 g/dl 6.4-8.2 Normal (applies to non-numeric re sults) [facility] Albumin 3.1 g/dl 3.4-5.0 Below low normal [facility] Sodium 139 mEq/L 136-145 Normal (applies to non-numeric resul ts) [facility] Potassium 3.6 mEq/L 3.5-5.1 Normal (applies to non-numeric resul ts) [facility] Chloride 112.0 mEq/L 98.0-107.0 Above high normal [facility] Anion Gap 6.6 [facility] Carbon Dioxide 24.0 mMol/L 21.0-32.0 Normal (applies to non-numeric results) [facility] The above 16 analytes were performed by [facility] [id number], ,[place] [address] ID Date Data Source [id number] 05/02/2021 05:16:00 AM EDT [facility] Name Value Range Interpretation Code Description Data Arabella rce(s) Supporting Document(s) Hemoglobin 9.7 g/dl 12.0-16.0 Below low normal [facility] The above 1 analytes were performed by [facility] [id number], ,[place] [address] ID Date Data Source [id number] 05/02/2021 05:16:00 AM EDT [facility] Name Value Range Interpretation Code Description Data Arabella rce(s) Supporting Document(s) Hematocrit 31.7 % 37.0-47.0 Below low normal [facility] The above 1 analytes were performed by [facility] [id number], ,[place] [address] ID Date Data Source [id number] 05/01/2021 11:33:00 PM EDT [facility] Name Value Range Interpretation Code Description Data Arabella rce(s) Supporting Document(s) Care Plan [facility] JZYHQb3fNkBGDmIk70/IOUpiSMJri0ZvKGntULf4UKjfFHTvJ1JgUSF8bD7kDSV1MYnHAxPbHwYlYLAh lbm [file] YNCg== ID Date Data Source [id number] 05/01/2021 06:29:00 PM EDT [facility] Name Value Range Interpretation Code Description Data Arabella rce(s) Supporting Document(s) SARS coronavirus 2 RNA [Presence] in Res piratory specimen by MELINDA with probe detection NEGATIVE [facility] This lab was ordered by [facility] a nd reported by [facility]. ID Date Data Source [id number] 04/28/2021 06:15:43 PM EDT [facility] Name Value Range Interpretation Code Description Data Arabella rce(s) Supporting Document(s) Nursing Note [facility] WXNQYw5cRjBTOxBi65/UYZzaNHNrf9PaVMdoUHc4BPqrBLYfM1YoASB0nX3xLXE2JYxSYxMtDlEnSMNu lbm [file] QnbDrvVQBFRmEtCUw1OHlnVMRHHs4V ID Date Data Source [id number] 04/28/2021 04:30:15 PM EDT [facility] Name Value Range Interpretation Code Description Data Arabella rce(s) Supporting Document(s) Discharge Summary [facility] BLSFDx4yTvBCFkOq39/EMKoeNUErw6BtSVeeBFn7WZhsGHCmX9BbXPY7tK5dFCG7HHcRZkPyLuYdQKZs lbm [file] ez+XKyna+W/Bly221+V2+mk/evp operations+pdfxMnrIXbuyUTG [file] AgICAvRjMgMjUgMCBSDQogICAgICAvRjQgMjggMCBS WOngWYCxUQXkYsHfOyKpHRRIGf9BLqUfCHPkTG0gytKhqSF4BKE+Uw6XONYrFC4ZeISWG4EtqZZjDLwp D6GJWK7YLAB9SI1FmLJbBL2LnECTX1TtkYRdGm8xCKUgg4OnRt7wC0AEZTGCCGCfJPbnKBsgXQJnRVc2 Q6A2XZEtA8TJO581qJLcnQz1Hn5gT8NYAExCIdVyLF vrQOrlGNQxFCd2M5Y3DBBqF5WXU6BcIyXxacPrT8U+AdEvOKWLGH4SLLMHNXe0T0K5vKKvJ7K9bOmRnI M6MM7HLH2TsFYzuWYoo78+IiQSUrRjXOVfD1SEKIIXBmLlKAtpOOgiDNBuMXa4B7C4OVCnH0XSC6dxW3 h0ZW4+MfUUIeYzHDArEu8TWrVcOx8SHmSsAB4gcw8B IuOoRVRlDnoJAyf8Z0dzkdl1jOMrMjY6H7R3RfM3tKIxKY6QO5A2yAUnJSY7BMFofHT+Jx3Sz1HdUJOx DZa5W4ywWZWcHTXqHpBrvZ37S++9quscyFO7V9r7VODZpXIzjSsFtxFmN7wZKZV7v4U9TDv/Hq6IDGW7 xAy8mUDwVPBvMJu8pA3jvYr4EdMpNI84AQSrCSrbdU 2kLll7R9Ojc2ZcLf1qUd5epWHsOh8PFkVfOWF5vkGlWpXHOaH9hCbfmydpDZR5O1g0iLA3Df31j2vioh Qmc9SbKoB7PFwuKYLxCiEfpzUhTAO4qaAjvN2xpcFiLj8WYTFbHXxdrxTkCyCKIl5GBeWfOM07VtklbG 1ldGE+DQogICAgICAgICAgICAgICAgICAgICAgICAg ICAgICAgICAgICAgICAgICAgICAgICAgICAgICAgICAgICAgICAgICAgICAgICAgICAgICAgICAgICAg ICAgICAgICAgICAgICAgDQogICAgICAgICAgICAgICAgICAgICAgICAgICAgICAgICAgICAgICAgICAg ICAgICAgICAgICAgICAgICAgICAgICAgICAgICAgIC AgICAgICAgICAgICAgICAgICAgICAgICAgDQogICAgICAgICAgICAgICAgICAgICAgICAgICAgICAgIC AgICAgICAgICAgICAgICAgICAgICAgICAgICAgICAgICAgICAgICAgICAgICAgICAgICAgICAgICAgIC AgICAgICAgDQogICAgICAgICAgICAgICAgICAgICAg ICAgICAgICAgICAgICAgICAgICAgICAgICAgICAgICAgICAgICAgICAgICAgICAgICAgICAgICAgICAg ICAgICAgICAgICAgICAgICAgDQogICAgICAgICAgICAgICAgICAgICAgICAgICAgICAgICAgICAgICAg ICAgICAgICAgICAgICAgICAgICAgICAgICAgICAgIC AgICAgICAgICAgICAgICAgICAgICAgICAgICAgDQogICAgICAgICAgICAgICAgICAgICAgICAgICAgIC AgICAgICAgICAgICAgICAgICAgICAgICAgICAgICAgICAgICAgICAgICAgICAgICAgICAgICAgICAgIC AgICAgICAgICAgDQogICAgICAgICAgICAgICAgICAg ICAgICAgICAgICAgICAgICAgICAgICAgICAgICAgICAgICAgICAgICAgICAgICAgICAgICAgICAgICAg ICAgICAgICAgICAgICAgICAgICAgDQogICAgICAgICAgICAgICAgICAgICAgICAgICAgICAgICAgICAg ICAgICAgICAgICAgICAgICAgICAgICAgICAgICAgIC AgICAgICAgICAgICAgICAgICAgICAgICAgICAgICAgDQogICAgICAgICAgICAgICAgICAgICAgICAgIC AgICAgICAgICAgICAgICAgICAgICAgICAgICAgICAgICAgICAgICAgICAgICAgICAgICAgICAgICAgIC AgICAgICAgICAgICAgDQogICAgICAgICAgICAgICAg ICAgICAgICAgICAgICAgICAgICAgICAgICAgICAgICAgICAgICAgICAgICAgICAgICAgICAgICAgICAg YOSoLRKmVZYmABIbYSKxBRVjHRIjPDNcDPl5Q8npHCHeDYRaZO5cDMl6Hv2+MBzRJjXqXEZ8ufUduR0F FK8yp1DgYEfuJLWcq9QeRKh9IU2SYUVyOYvnST7DHW kyhg1OYDBoTXHzmXMWv6ygBgBmZEI9XUAiVkppKL5FJGMaF5pdoaIeQAElOOBWHUtvCEORUVhmPYORWT HlLSSnQoThPjYxFCYtGS2DXZBhY508uwIsGW7JSy1FTlFoQP9czg8ZQtTeBFKoKhyQScq0LLkzOC2YfU RypLPyLMDmMNEBKxSwT5dot8SpRtRsTVDJKEdmRP2Z m7YkvQKxTZt+Pm9XIG6ps7DjNUzwWJBpMU0lml3PFPvVFgRzJ7FhdIcgDHLmr6KqYCHaMXHNvH6kMAM8 OMC8EABpxpTxS9wagx66RJMAPCWdnCR7YpFjDxPrGsZlYID3HxmtHK3nEHguDL2QROJ9JXtgABYkKDAi N7rOSsJjVUgeXYEiaZvwXW2XMjWvD2QanuAvgUDpCJ AwIFINCj4+SKzfcdPnJpeVBeT0GKAjr1WyXGa5LE8YEFBnHVjmUZ3YCFQftK7gWKbbDF3IHmFfNvBjAE QDVvNsY75gzKUqHGk5K8BpHoQiOVXbNmnjQYOvAGqzJmAdYGAlRzAuWBbhFD7+ID4+XXfiRV9TBWuqyx UfDJEsUx7KUDSqXJAyJC9eEQEsYFVzP2Y9dYxuVMJA ChXaH6rulwonIR8yJDQaI924uViydnEvGYW1ZGEePy0INZEsGEN0EKHmnFDuIhOqUJNJWYuxXX3AgSFo CMG9uK1kQIcdYMOsCTMpX3eMNfTyxMhaRJ99bDldutQzrVRxJVn+Nl0KXO2jd3XtQWf3puSwRKuuRGV3 YEgqKALuERBmQDJnENE7CHM1YWKUSeOmTJTaBZGgLB fmXRAhMJMbxy9RDYFbRJGhDJD8PwNqGETqXXKrWFwrWJVxBLLmNGP2JHBkAFYjRQ0XSwEhJZZrXAFuQK wdRNXpFCRjex6RSRJvWKNzXtO3RGOaMETgPRCxQOajSZUkVPFhZgjaWZArMYUpMR5XEmEzSVXlSXM8MP UqJEVcSKTjra1WAHSvMSChYNdqHeVjZATtYTMdMRmd RPWkUMP6UtPvPUMoANUeNA6MOrObRQHkMAe1ReVgMARqRQYyqf0EWFBuDLDsVSa0STNmHRIiNSKrIYah JOCuKKOdIMwxYTUfCFVsQT9GNtLdFLJvAXQgEeYdRMJySPWxnq2YQKZjBUNuZzKhPjRtBAHzLAHfHZux ILYpTUD4ZAi0KXNkDJCkSZ0LNxPiJFAnRGIvJGyfKZ FxQEGrqj7MDBTnZVByCVL7BPBpWZNjKIVjJPfoKCRsAMG5OCT4LKEnHNOkJZ4SZnOeBPTuGIQ2LEKaNB ArRGDifm9XAHMwPTTgPFscWPCxWUCuOXFjTHgjIOStULA3AWsgEULeYUYkIQ9DSaUgQAXlFOlcEAEaUO QiNQWhxu9GJNPrFDEsPmU9UYGxJOEyBWIjYOwmBBRb WWN7KkN1EPMrKHGmWW4DCwNkGWIsEQm5LhVnZWPxLRUjrj1WNISaDHErEDMnUPPoKKQmPDAuCGkrSGIl ZBD5NGiyKTIxAIBlER0THjRiUAZcJWn8QWBfYIElZPCzhj3DPGTtHYJjQVb3BSIrKALrMNAgKFvrNCVb WXGfYOY5SUWwHTXwQH7TBwBhOQYvEvOgBYCiEAQxRN Miuo2WZGLlJBOmDFJgWVNnGVYpEPJiOMwxHQCaMIUbEIL1QLTuIZZfPS6RFnMsRLXjVyNdJLSiNDTtDZ Wmgr4LBJHvBNIjCtR6GGWgRLIbAMOpNEfsALVcSTEcGDQxJCCtAAIhFK5ZRoHwVMhqTPJTGaw2BTjdP5 b6DWQyIk3VQ8Oux6SrAtNiAGYBNEkuXY4kidPrRNMs Gx0MQ7uJZygpTMZvVsguNdFdFoP1UuAtLTO2FLvlILrdDLF3HRQtQn9iOAVpHbJiELTyXHXhXnRiGkP9 OQEvQQCeH4N9UUk5XMCmMkTeQI3CQk8UGqB6KII2sSFyGl4WTyV0FYDJWpNzMY7VVSt= ID Date Data Source [id number] 04/28/2021 03:03:23 PM EDT [facility] Name Value Range Interpretation Code Description Data Arabella rce(s) Supporting Document(s) Care Plan [facility] DHPODy1jHjBPDaMk90/XSJcbKCNqz0FqRAcjJDj1HFcpWMUuO6YhXBX7eA8cIPV9ZEaBQzBqTaWzGBLs lbm [file] DQo= ID Date Data Source [id number] 04/28/2021 12:53:00 PM EDT [facility] Name Value Range Interpretation Code Description Data Arabella rce(s) Supporting Document(s) Glucose, Fingerstick 131 mg/dl 70-110 Above high normal [facility] The above 1 analytes were performed by [facility] [id number], ,[place] [address] ID Date Data Source [id number] 04/28/2021 11:25:13 AM EDT [facility] Name Value Range Interpretation Code Description Data Arabella rce(s) Supporting Document(s) Nursing Note [facility] VEHMXl1rNdQSTvVh54/SFDbxCHNvx1DvBPfcUGd6HVvsNBTiG6KvKPR9cE7hBLJ2DNqDRnTeYrHcTKUg lbm ErSzhXKxChFPJdMntQXnFwRSvnIrvleVUiTX4IgIF7XZXfB45pINSeDLQzM5YhIFvoTb1+JIpbJAR4vf EbtM9NBCOZSIbNLrUUss/U/kEGVuOS5c5uOPBjTPHFXLQYrZe0QAPXIpMaVPkuq8551v5zTJ3CZAHPgz QdeWY+zzeHvQHwfz+hpSVjDPLP+lFbATdjePsGKrVE [file] TBPQAdFzHTCePUvnVOUIFj8N ID Date Data Source [id number] 04/28/2021 06:07:30 AM EDT [facility] Name Value Range Interpretation Code Description Data Arabella rce(s) Supporting Document(s) Nursing Note [facility] UIUVZd8pEqLHUjSg82/SEAktBMXnu4BoQSmhDIc4OSsnJCFyK9IxBDU5bJ9jKFW1KOjTHdRdGdUhXSWr lbm [file] ICAgICAgICAgICAgICAgICAgICAgICAgICAgICAgIC AgICAgICAgICAgICAgICAgICAgICAgICAgICAgICAgICAgICAgICAgICAgICAgDQogICAgICAgICAgIC AgICAgICAgICAgICAgICAgICAgICAgICAgICAgICAgICAgICAgICAgICAgICAgICAgICAgICAgICAgIC AgICAgICAgICAgICAgICAgICAgICAgICAgICAgDQog ICAgICAgICAgICAgICAgICAgICAgICAgICAgICAgICAgICAgICAgICAgICAgICAgICAgICAgICAgICAg ICAgICAgICAgICAgICAgICAgICAgICAgICAgICAgICAgICAgICAgDQogICAgICAgICAgICAgICAgICAg ICAgICAgICAgICAgICAgICAgICAgICAgICAgICAgIC AgICAgICAgICAgICAgICAgICAgICAgICAgICAgICAgICAgICAgICAgICAgICAgICAgDQogICAgICAgIC AgICAgICAgICAgICAgICAgICAgICAgICAgICAgICAgICAgICAgICAgICAgICAgICAgICAgICAgICAgIC AgICAgICAgICAgICAgICAgICAgICAgICAgICAgICAg DQogICAgICAgICAgICAgICAgICAgICAgICAgICAgICAgICAgICAgICAgICAgICAgICAgICAgICAgICAg ICAgICAgICAgICAgICAgICAgICAgICAgICAgICAgICAgICAgICAgICAgDQogICAgICAgICAgICAgICAg ICAgICAgICAgICAgICAgICAgICAgICAgICAgICAgIC AgICAgICAgICAgICAgICAgICAgICAgICAgICAgICAgICAgICAgICAgICAgICAgICAgICAgDQogICAgIC AgICAgICAgICAgICAgICAgICAgICAgICAgICAgICAgICAgICAgICAgICAgICAgICAgICAgICAgICAgIC AgICAgICAgICAgICAgICAgICAgICAgICAgICAgICAg ICAgDQogICAgICAgICAgICAgICAgICAgICAgICAgICAgICAgICAgICAgICAgICAgICAgICAgICAgICAg ICAgICAgICAgICAgICAgICAgICAgICAgICAgICAgICAgICAgICAgICAgICAgDQogICAgICAgICAgICAg ICAgICAgICAgICAgICAgICAgICAgICAgICAgICAgIC OiWMQiYRBeKRUiXELnAROvYWEsQWRdNFNtEDFsYDKmDYPxDIOeQNPjPMRmAVTdNFXmAYTuOCZeNNv1Y3 taDGCiJUCnZC8dZZc5Sr4+NLmXQrEjSMZ4hwPhnO1EFU8rr5FuFWvuDODun6ZiGBu6XQ5GHPWnRTegBF 3UUEuqyu6IEEHjCUCirKZUf0iuXfBrMCW9KMCoRwkf QC1RFOOqO6zpmkYdRRLoBQMOPY2SUkBcF8VupD97JVOILm1+ROlfkyFdBscIRbGmLUPio4FoNJj3KB1T UULkZczia0IlUrCcHVVAJQdoEY6PIXQ8VMPeRPVtKd6SKAXcJ778crNkAS5QEa0QDmEjHX4dzr5JPiCx MEAuTmtHOle4ZFmoJU5NzTLjUBtTuYRxhF9pOM8vuL JrZqheQDgvbVzgGKenauZcwkrspCglRc5vHMKuQK9nJJ9eVTVjCOOyTuI9NAKIRC7KBTMkHCTlaVJfWZ RaVCQEMN1VDFwsIRK4ZocdtkWjjBLbNVciDZ3SHNFlksCoRvXvJWILJHw+Sc4EKX1dg1WnVLsqCANoOI 8urw6ZEQrIPaCtE3A2dZBpN3J6VJivQa1ANQUdKMRv BrDaYFRSOYksAC6YOC3lwlH3UI0VgUSxYQJbYHOwzITcRMo8E17saLRzEArjCT1QQYC+Mau+Ui4GFZWu XUCeYQRzJfSiNQEVUiLyR8EeS9YDc0ScA9VfIW79bEwbmoUiEVmvWK7XNV6zEWWsWZENDE3NuNGkrP0v otHcZnSrEFRAAtTgS63khFQeIUCfWRHiPAIiAu4HWY PqT7SeuhGuaTjlnbNuEDJyCGJXYE6XJMyaquKopMSqxCaeIG66uAuwCG9OFz7HPtKqBJ7lub2JiXWkGi 4SGYKdHH1VXUSjYKPkZCJeWQB8VSZzLbSeJOoaWFIjQBKkIDF8UJRuNPBiWV4IQuBpGWDsQValSrNaBI BwVSJeit6EFBEtWURxCOx1NCTgAUHmVUIkYCzyCBSy HMVcENH0PFGoSCInHV9LPjOjEZLkKNK7IQUbPQVfJBCcjd6KPSUlMWOlUYv1LsPaGEWaITCkKJvjVIJd FPJiJGU0CGPjXLRdOH8YYbYsDXDaCLIkZLYuYUThYDEfgu3ZVXJdIJVoHoQsAWFsOXYbVOKpRSjfQSKe LHC9RRArQFPdXQClHT3SFfXvQYDuGMMyVIueMEUbVL Jdns6XCWXbIUWgXNDxASZwDBBzHSIdJRsoBXTtRPO5VEf1WQTnVNItQL5EJaQnSSVhGNwdTWZfWAGhQT Huxh2DTTPyCLNtBxGjYuYuIYDyCAUvYDgpRKRySLQ4PfBcZUHzMAGiRF2YXbOmIOMjJJf1RAmjEQWiVV Tvtg8EQOQvVIUnWHo5VTMuUBKdECIvNSmoSMXePHI6 YQT3ZMNaAKVnIU5KCrVmSOMoDHnrERwuOIKjCMQyzs5ZMVXwEAKoYBWhOLXvVULuKTToRRdfSCRmMZJw GZZbYJLvXSYnRO5RJaLcSOPiQqPvXfWuWXStISWqsk4HSDBkVLKkAGW4SvMcTEDuORGwQOs1abSixSVd NRm4PQ7UK0XwctXnOyNXDq5Kt691FKT0JTAyAi0LB1 vmDo7zDYEhQKTRGi4XGYl5R6NmAeF7MKRsMfdtY3UvEfE3D6MpTmU1TQGpKSQ6PfH+EZy4X4ApUUM2Je CfJTFiFHViFQv8YTFxAuTaOMT6KsSjMv4pYCLZYt2+EYwaxDMjcWpeUMDBCsFhUQY3WIzyQYDDTf0V ID Date Data Source [id number] 04/28/2021 05:35:00 AM EDT [facility] Name Value Range Interpretation Code Description Data Arabella rce(s) Supporting Document(s) Glucose, Fingerstick 72 mg/dl 70-110 Normal (applies to non-num madiha results) [facility] The above 1 analytes were performed by [facility] [id number], ,[place] [address] ID Date Data Source [id number] 04/28/2021 05:43:00 AM EDT [facility] Name Value Range Interpretation Code Description Data Arabella rce(s) Supporting Document(s) AST 126 IU/L 15-37 Above high normal [facility] Sulfasalazine and sulfapyridine have the potential to falsely depressAspartate Aminotransferase results. Baseline values before medication administration are recommended. ALT 193 IU/L 13-56 Above high normal [facility] Sulfasalazine and sulfapyridine have the potential to falsely depressAlanine Aminotransferase results. Baseline values before medication administration are recommended. Alkaline Phosphatase 172 mIU/ml 50-136 Above high normal [facility] Total Bilirubin 1.30 mg/dl 0.20-1.00 Above high normal [facility] Blood Urea Nitrogen 7 mg/dl 7-18 Normal (applies to non-nume [place] results) [facility] Creatinine 0.75 mg/dl 0.51-0.95 Normal (applies to non-numeric resul ts) [facility] N-Acetylcysteine (NAC) and Metamizole em ve the potential to falselydepress Creatinine results. Baseline values before medication adminstration are recommended. Patients undergoing treatment with phenindione will have falselydepressed results. Patients on phenindione therapy should be tested with an alternativeCREA method.Toxic levels of acetaminophen may lead to falsely depressed results forpatient samples. Glomerular Filtration Rate 86.00 mL/min/1.73m2 [facility] GFR Reference Ranges:Normal Function or Mild Renal [...] of Health and the National KidneyFoundation. The [place] method used in calculating this result is traceable to IDMS standards. Glucose 77 mg/dl 70-110 Normal (applies to non-numeric resul ts) [facility] Sulfasalazine has the potential to false ly depress Glucose results. Sulfapyridine has the potential to falsely elevate Glucose results. Baseline values before medication administration are recommended. Calcium 8.2 mg/dl 8.5-10.1 Below low normal [facility] Total Protein 6.5 g/dl 6.4-8.2 Normal (applies to non-numeric re sults) [facility] Albumin 2.9 g/dl 3.4-5.0 Below low normal [facility] Sodium 135 mEq/L 136-145 Below low normal [facility] Potassium 3.6 mEq/L 3.5-5.1 Normal (applies to non-numeric resul ts) [facility] Chloride 108.0 mEq/L 98.0-107.0 Above high normal [facility] Anion Gap 8.7 [facility] Carbon Dioxide 21.9 mMol/L 21.0-32.0 Normal (applies to non-numeric results) [facility] The above 16 analytes were performed by [facility] [id number], ,[place] [address] ID Date Data Source [id number] 04/28/2021 04:59:00 AM EDT [facility] Name Value Range Interpretation Code Description Data Arabella rce(s) Supporting Document(s) WBC 5.64 x1000/ul 4.80-10.00 Normal (applies to non-numeric re sults) [facility] RBC 3.80 x1Mil/ul 4.20-5.40 Below low normal [facility] Hemoglobin 9.9 g/dl 12.0-16.0 Below low normal [facility] Hematocrit 31.6 % 37.0-47.0 Below low normal [facility] MCV 83.2 fL 81.0-99.0 Normal (applies to non-numeric resul ts) [facility] MCH 26.1 pg 27.0-31.0 Below low normal [facility] MCHC 31.3 g/dl 32.2-37.0 Below low normal [facility] RDW 14.4 % 11.5-14.5 Normal (applies to non-numeric resul ts) [facility] Platelet Count 253 x1000/ul 130-400 Normal (applies to non-numeric results) [facility] MPV 10.5 fL 9.4-12.4 Normal (applies to non-numeric resul ts) [facility] Neutrophils 56.6 % 40.0-74.0 Normal (applies to non-numeric resu lts) [facility] Lymphocytes 32.1 % 19.0-48.0 Normal (applies to non-numeric resu lts) [facility] Monocytes 7.6 % 3.4-9.0 Normal (applies to non-numeric resul ts) [facility] Eosinophils 3.0 % 0.0-7.0 Normal (applies to non-numeric resu lts) [facility] Basophils 0.5 % 0.0-2.0 Normal (applies to non-numeric resul ts) [facility] Immature Granulocytes 0.2 % 0.0-0.5 Normal (applies to non-nu meric results) [facility] Nucleated RBCs 0.00 % 0.00-0.20 Normal (applies to non-numeric r esults) [facility] Abs. Neutrophils 3.19 x1000/ul 1.92-8.31 Normal (applies to non-numeric results) [facility] Abs. Lymphocyte 1.81 x1000/ul 1.20-3.70 Normal (applies to non-n umeric results) [facility] Abs. Monocytes 0.43 x1000/ul 0.14-0.97 Normal (applies to non-nu meric results) [facility] Abs. Eosinophils 0.17 x1000/ul 0.00-0.76 Normal (applie s to non-numeric results) [facility] Abs. Basophils 0.03 x1000/ul 0.00-0.22 Normal (applies to non-n umeric results) [facility] Abs. Immature Gran. 0.01 x1000/ul 0.00-0.02 Normal (appl ies to non-numeric results) [facility] Abs. Nucleated RBCs 0.00 x1000/ul 0.00-0.02 Normal (appl ies to non-numeric results) [facility] The above 24 analytes were performed by [facility] [id number], ,[place] [address] ID Date Data Source [id number] 04/28/2021 02:02:18 AM EDT [facility] Name Value Range Interpretation Code Description Data Arabella rce(s) Supporting Document(s) Care Plan [facility] [id number] lbm [file] [id number]/F/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 [file] [id number] a/2RvMXWmnzDcs3jKztIyMMFhjgxHcM5TcQ93M [file] N2CSTLKwFtAE0LOYw= ID Date Data Source [id number] 04/28/2021 12:07:00 AM EDT [facility] Name Value Range Interpretation Code Description Data Arabella rce(s) Supporting Document(s) Glucose, Fingerstick 80 mg/dl 70-110 Normal (applies to non-num madiha results) [facility] The above 1 analytes were performed by [facility] [address], ,[place] [address] ID Date Data Source [id number] 04/27/2021 07:16:45 PM EDT [facility] Name Value Range Interpretation Code Description Data Arabella rce(s) Supporting Document(s) Nursing Note [facility] MVGFOm9mSzTGHgJe10/CZUtePSPxi0LmEBhmTJn3FJqnAJOwP4VxXUT3iG1nMVN1IZsACsPgAwGrPCL1 lbm [file] H0kHEsKa9KVfZmRFBEEpSaZU6GRJg= ID Date Data Source [id number] 04/27/2021 05:52:00 PM EDT [facility] Name Value Range Interpretation Code Description Data Arabella rce(s) Supporting Document(s) Glucose, Fingerstick 81 mg/dl 70-110 Normal (applies to non-num madiha results) [facility] The above 1 analytes were performed by [facility] [address], ,[place] [address] ID Date Data Source [id number] 04/27/2021 03:06:47 PM EDT [facility] Name Value Range Interpretation Code Description Data Arabella rce(s) Supporting Document(s) Progress Notes [facility] AWCWJu3nFpSBXyOr20/TIZonJGNbk2PmNQfaMTv1GXhfYPMoO0PwAQN9kT5yCDT3BLrUUcQrIgEbEOL8 lbm [file] rgERHNBh1J ID Date Data Source [id number] 04/27/2021 02:37:54 PM EDT [facility] Name Value Range Interpretation Code Description Data Arabella rce(s) Supporting Document(s) Progress Notes [facility] QWARVe9nQwDLFhKk69/DMJprQCEop3BkTLsdMMj9YRwpDQCmV9RsHIO6eH9xIJJ0QUsVGxMkHsAhHNQ0 lbm [file] AgICAgICAgICAgICAgICAgICAgICAgICAgICAgICAgICAgICAgICAgICAgICAgICAgICAgICAgICAgIC EkYVUsLKWrRALjMBMnMTDrXWGoBBKhUPKjBXQdEPNzMIJjYFBvDN4CLVDsADWhRIZmGSXwMEPdPAPbYE AgICAgICAgICAgICAgICAgICAgICAgICAgICAgICAg UAXwABIwORGeOTEfULKtZWMlBDIcWQCtFWOgNFKkUZQtOHSuLVQtIKCrFVKbKDJcYU5QJZNgQDJyGOBd ICAgICAgICAgICAgICAgICAgICAgICAgICAgICAgICAgICAgICAgICAgICAgICAgICAgICAgICAgICAg ICAgICAgICAgICAgICAgICAgICAgICAgICAgICAgIA 0KICAgICAgICAgICAgICAgICAgICAgICAgICAgICAgICAgICAgICAgICAgICAgICAgICAgICAgICAgIC HiUEYpBSPwWRLoYGEqFJFeWGLcGIAbBKIpBXDfKTEvYRXdEHFkCREwQB9XDZQcWNJhCSSvMRXuLJPdGB AgICAgICAgICAgICAgICAgICAgICAgICAgICAgICAg SWOhLXKcAXFjOAXmBULyGZDxFSXrFAGrOIClJYZtPIYcCRAjIOZfIRTkPHRgZYQzHJEdMB9EJJCgRHDw ICAgICAgICAgICAgICAgICAgICAgICAgICAgICAgICAgICAgICAgICAgICAgICAgICAgICAgICAgICAg ICAgICAgICAgICAgICAgICAgICAgICAgICAgICAgIC RoFY5HPHSsPYToSANiSZFwXZEjIJKwWVMaHJVhCMAjDESvWKSmAGPzWXLoRORxYTTxUUAuUTEcACNiFP CcUBCpHBBzKAAdAVJvNLKjARQeORFpQRRhVAKmJGYgCQKgQBDsVPCuEVNeQD9JBWRgFACaKKSrDTAsJH AgICAgICAgICAgICAgICAgICAgICAgICAgICAgICAg NGTgRXHfEQUxWJIrCJWfKISpDUZaBRCtTTQqSQElUTEuMPVyOWFwUWSbHUPfRWRrVBGsFGVyFX6PZGHr ICAgICAgICAgICAgICAgICAgICAgICAgICAgICAgICAgICAgICAgICAgICAgICAgICAgICAgICAgICAg ICAgICAgICAgICAgICAgICAgICAgICAgICAgICAgIC WcFCXgNN6INEKlYSUaEHYwQFAtMKKqGVIgFLTwGIVcOUGuDITlGLReAYRnDCUaTGTcNTXfHRXjCOIfQP BlWEXlFNNgINAqNCUaUNWvXWZrVFYcRDLlYEKuUZPwXMXnBIZpZPDmCSEtSRZyNT8AMR47eEDxw1I2PM BaPT1eetm/Li7DXVhryvInyUHzSI7PTnHmHW2fcn8S BuMbSW7bdn8STBpOOiJzH1T4aXUpMJOjLHOXLpVnL03pWEpbUh55IApzQGGdYvZnDBs5Oc6QYlBxS5ux GRMuLzH7DKTnUqJ6KOHeNjSjSZifNA8Rs5QhzKKiJAf+Eu7HQE7wi5BrDKebGJMoIS6yua9XKWbPCkHz P5GfbpP3FKM0GYUcGl8PRCEpPLJnzGXgWwSeJLHENk UmH9AomD30DMTMGp9+QNbwmnGiQgxORaN2AADvr6OgTZz4VH8APAGtVSf3yCOhKBXqD2Vpv9FuFm06BV HnGfexAXchLZNUxLVfcOHbmxasNMQEHoYzKANaWM2nAS5kUOPrFUCtWjN3VPSMMK5UIBMgYPSphEPnYB RoFVZPCW8CHYviWXV9LqslvzMpiXHbECyxIR0UGMFq bnQgMjUgMCBSDQo+Sy1RTH3ax9XnRBstIsXjHP6hjv7PFEiTFcKnT7X5cAJlT1P2FZkmHk7LZPDhHTUw PqBlAIDJDYslCL8VZZ0qotA1ON7MuMQaEWPjIQVjeQWyVNa4P44swGIuNThdTR0SQTM+Mau+Du4FUZSb BKVdCJYxMrRrPVGGLwFtZ2LbW1AMm8HhX3TpKQ63jI hilsTjSXgyOV4DFT9rRXZwPOKVRR9YsDLpxS7cteDxPMReIWTIPuYzZ93rbIJnWFUdYYC2SICsTz7XSL JpZ0CxkaMoaJjiwwWlKWJdBSSWXT9TBWjxucFfkCOmoYynVK19sNanHU3JZj0BMnWwEN9xtk5ZrUBmLl 5RJOOtJL8DKHUwDYTyQYDxACI1GRGjIoSnLEgrSTKz LOSaLRC5XDTpJQAmQT4WAvVwOFUqTZC4PMNtSNNsSMXxro0WETMnAJTbVuqySkXnVURnEUOqNPznMINr DTJuYGJ4NCQaXKFlFA1JBbVwNPPqIQP2VAciOMCrBXYrwx8NDTIwDUKhMlLdDCTzKNIhYXPtRGziFORj HBEhRAo3BFAeHZXrFQ0ZZwBmYVVlAJKtJFwtTNPpKA Pibv1ENUCnESTmVSF3XiTgWIAiIFKuCOelZJFyCEN2ItF0EZDuPFPjSW3INhXdFCYjBZU6KMTmVXAtOM Izaf3TCTSyRJJhQzTnVzTrMTWuFEUfGEyeUHOiNIL4PcCfKUPxCMLlTD5WEwWaIBXqEBG3OXFzXCPlYV Zusl4MYEOnPGUwRga0PMLbVZMrUXQjKGmgOQVcOBC9 EFHoHNIkIUXbCH3FTkPjCQLwAIshScitUFWnDHIjuc3CJMDjWEPeMDO2OGSrWFSnNHMyIAoyMAMlANN2 Dqq3RCMbUNCpPO6UUkVoLHAlXAr2IuEmDICbBDQqlc7RIKMfICIkOTBuENUlBACmJGAoXDhuAQUlIQSo UvF8ULGaLIMsTE5PDtCaIOHgZEA9QvopLVYhTEEqwo 4SQQIuJASvQXE9VnRgWLKjRGHtTTwvBMFeVCIgWRYhNFAjKKXcCH3CTxYtIRWcCAN9OBAsFEWdNIHbqv 5NHHJdKTWjAcF6UzJsHTNkZWYgXZn2wkZmuNHaVKd7LL4ZY3IfiuEgFwwDRm4Ro705FUC7DDKeIn2GF6 ovAp0kLYLcLOWQDa9QMSz7OwnaE6PhRuVxP1PnWCd5 XjiuDMN8PjHcFVBbOXG4HkE+QRy7X1J6TpGiAMN6TjO0JWgvZhOpVfA6YQKuJXM5WhmzKn0eEIGTIw1+ VIkbwYNjkGwbGHJORzUgUoj1IPcjRUKQVg2A ID Date Data Source [id number] 04/27/2021 02:46:00 PM EDT [facility] Name Value Range Interpretation Code Description Data Arabella rce(s) Supporting Document(s) Ferritin 17.7 ng/ml 3.0-388.0 Normal (applies to non-numeric resul ts) [facility] The above 1 analytes were performed by [facility] [address], ,[place] [address] ID Date Data Source [id number] 04/27/2021 02:46:00 PM EDT [facility] Name Value Range Interpretation Code Description Data [facility] rce(s) Supporting Document(s) Iron Saturation 42 [facility] Iron 186 ug/dl 50-170 Above high normal [facility] Patients treated with metal-binding drug s (e.g deferoxamine) may havedepressed iron values. Total Iron-Binding Capacity 440 ug/dl 250-450 Norm al (applies to non-numeric results) [facility] The above 3 analytes were performed by [facility] [address] [facility], ,[place] [address] ID Date Data Source [id number] 04/27/2021 02:46:00 PM EDT [facility] Name Value Range Interpretation Code Description Data [facility] Document(s) AST 350 IU/L 15-37 Above high normal [facility] Sulfasalazine and sulfapyridine have the potential to falsely depressAspartate Aminotransferase results. Baseline values before medication administration are recommended. ALT 301 IU/L 13-56 Above high normal [facility] Sulfasalazine and sulfapyridine have the potential to falsely depressAlanine Aminotransferase results. Baseline values before medication administration are recommended. Alkaline Phosphatase 227 mIU/ml 50-136 Above high normal [facility] Total Bilirubin 1.50 mg/dl 0.20-1.00 Above high normal [facility] Blood Urea Nitrogen 8 mg/dl 7-18 Normal (applies to non-nume ny results) [facility] Creatinine 0.70 mg/dl 0.51-0.95 Normal (applies to non-numeric resul ts) [facility] N-Acetylcysteine (NAC) and Metamizole em ve the potential to falselydepress Creatinine results. Baseline values before medication adminstration are recommended. Patients undergoing treatment with phenindione will have falselydepressed results. Patients on phenindione therapy should be tested with an alternativeCREA method.Toxic levels of acetaminophen may lead to falsely depressed results forpatient samples. Glomerular Filtration Rate >90.00 mL/min/1.73m2 [facility] GFR Reference Ranges:Normal Function or Mild Renal [...] of Health and the National KidneyFoundation. The [place] method used in calculating this result is traceable to IDMS standards. Glucose 86 mg/dl 70-110 Normal (applies to non-numeric resul ts) [facility] Sulfasalazine has the potential to false ly depress Glucose results. Sulfapyridine has the potential to falsely elevate Glucose results. Baseline values before medication administration are recommended. Calcium 8.6 mg/dl 8.5-10.1 Normal (applies to non-numeric resul ts) [facility] Total Protein 7.3 g/dl 6.4-8.2 Normal (applies to non-numeric re sults) [facility] Albumin 3.5 g/dl 3.4-5.0 Normal (applies to non-numeric resul ts) [facility] Sodium 136 mEq/L 136-145 Normal (applies to non-numeric resul ts) [facility] Potassium 4.5 mEq/L 3.5-5.1 Normal (applies to non-numeric resul ts) [facility] Chloride 108.0 mEq/L 98.0-107.0 Above high normal [facility] Anion Gap 12.0 [facility] Carbon Dioxide 20.5 mMol/L 21.0-32.0 Below low normal [facility] The above 16 analytes were performed by [facility] [address],[id number],[place] [address] ID Date Data Source [id number] 04/27/2021 12:43:26 PM EDT [facility] Name Value Range Interpretation Code Description Data Arabella rce(s) Supporting Document(s) Consults [facility] HVCYOq3aJaBLNxFm51/TPLmaPWIrr1FzIHfhSEw7XPpcQRQrQ2BnKPM9aI3nWWE2SLaJYfZsXgNhWZB0 lbm [file] AgICAgICAgICAgICAgICAgICAgICAgICAgICAgICAg ICAgICAgICAgICAgICAgICAgICAgICANCiAgICAgICAgICAgICAgICAgICAgICAgICAgICAgICAgICAg ICAgICAgICAgICAgICAgICAgICAgICAgICAgICAgICAgICAgICAgICAgICAgICAgICAgICAgICAgICAg ICAgICANCiAgICAgICAgICAgICAgICAgICAgICAgIC AgICAgICAgICAgICAgICAgICAgICAgICAgICAgICAgICAgICAgICAgICAgICAgICAgICAgICAgICAgIC AgICAgICAgICAgICAgICANCiAgICAgICAgICAgICAgICAgICAgICAgICAgICAgICAgICAgICAgICAgIC AgICAgICAgICAgICAgICAgICAgICAgICAgICAgICAg ICAgICAgICAgICAgICAgICAgICAgICAgICANCiAgICAgICAgICAgICAgICAgICAgICAgICAgICAgICAg ICAgICAgICAgICAgICAgICAgICAgICAgICAgICAgICAgICAgICAgICAgICAgICAgICAgICAgICAgICAg ICAgICAgICANCiAgICAgICAgICAgICAgICAgICAgIC AgICAgICAgICAgICAgICAgICAgICAgICAgICAgICAgICAgICAgICAgICAgICAgICAgICAgICAgICAgIC AgICAgICAgICAgICAgICAgICANCiAgICAgICAgICAgICAgICAgICAgICAgICAgICAgICAgICAgICAgIC AgICAgICAgICAgICAgICAgICAgICAgICAgICAgICAg ICAgICAgICAgICAgICAgICAgICAgICAgICAgICANCiAgICAgICAgICAgICAgICAgICAgICAgICAgICAg ICAgICAgICAgICAgICAgICAgICAgICAgICAgICAgICAgICAgICAgICAgICAgICAgICAgICAgICAgICAg ICAgICAgICAgICANCiAgICAgICAgICAgICAgICAgIC AgICAgICAgICAgICAgICAgICAgICAgICAgICAgICAgICAgICAgICAgICAgICAgICAgICAgICAgICAgIC AgICAgICAgICAgICAgICAgICAgICANCiAgICAgICAgICAgICAgICAgICAgICAgICAgICAgICAgICAgIC AgICAgICAgICAgICAgICAgICAgICAgICAgICAgICAg ICAgICAgICAgICAgICAgICAgICAgICAgICAgICAgICANCjw/dCIsM3lwhVVmpaC8J8ttXg3WCz1IEJ1i n1CtIVDrDKlegwFwLurNTnCuZLXoLezVQmm2CPrsLD6NsGPcL0EhX6QkDGyiMF4PYONgMHMyvDXdKJSv SEXdJdP2HCNlFCvxGE7LsMZvFUraKXCkWJPnYtBaIX EzTIOsNMHlQMLtMWYVZIYwDGXdAkEcGHZpAWYfGXsgPEUUPV0QLgHgM6QsnU47ZKzHDm7+DQplbmRvYm eUSzZzPOFzv9RrJRq1TT3IPJZrOiwoa9IgQXJuEHPRRCvjUD5YEXB4JOOkXOGeWe7DYNTyO852ojMyJH 4CKy4DWtZjSH1psf4ESZHcMESsNhxREhu2PSuoVC8P hJKiNPdLq49mgBd6dlFujKDChVghkHEtCVUmL6OcTmWsWWAUNWIyaQW1QhF4GpDsCrRsPHI8SWyfFM5d JHytRW1VGWU2FTzcEDLvDUSiC7lGNxRgYGopAOZjiFabNY8LLwWbR1OcgwQckDX1OPPqMKMNAg1+DQpl npQgEzhWPtEtAYTxd4KjISi7WL8TCWYgKNzdGC7OJE VfiR5cWMncAU3PUnVpJUCfOLXFXjAbW59lhOJvHUm1X6FeNhNgODDoSnhoGAJgRHpfRnClEZGkAhNgDQ ogID4+ID4+YLldYZ5BDKdatjZzCBNdCj9VGPXyWMXqVN5cXVLlDHZzV6X7dChpILQZOjDyZ2suazqmET 2rGBKsQ738rNxudrDeXFLyBUXnSf0QUHZoHWF3NHDk wOQmVnguNAEMZKhhYF1RzZPhRXC6nJ3wHJseTFGaRCZrV5gEGqYeyAjaUU10qZtqppGbzMIwPBa+Pg0K BN9qo1BfRAe9xqWqQZlkRCCtZWmmKWDxEVFdMWQsLYZ0CJB5GCYQLvOgOJBxLYMxICrfDVGkGFQwls4D BLPiSXSvRoI2DkHyCISmTQMzGOtzQPHvHFN4GRNmSB SpTHBfDV1CYbWqCLGaIXJaCKggKFRyENFyaw0NCVAfMCJmRdEnVLKdBOOjZOOwWXklVIHiINEeSJT2EQ GiFZYuMZ8BFwEqSURlZWWvKWanFQIgBQDyel7DFRPeVKSgMjQeDvUdBTLkFQMsKTpoZHVoXGB6VxTyEI CdMULkVX3TXtHuZYWxWVc5TQHkLUWtKBUhld0WVHKi KAWaPKX3EoLxPJFoPTBgEHktAPFvUDOtJRR5ZVVtYHIpCJ7BSpTrFNQzVBJmSwPkNWHxUMOrel0FQGNr TXQnWjC6OMImWDIqPVYjBWcuJARpNHA4JHk4KDQkGPSeTB3XMlMxPMZvHRP3CSLfEZSdOKCtck8RBICr KZBoRJonAUOaPBZtCEUjXOjuEWSnCQM2ACS1PZDfKK TrTB8XAqAwKFAqKWtlTDFuSUZsILXden4RHRCaPYKsRxQ1MbWkLGBzUZVaSFvmLCRpPTG0HSf3VIUkJS OuKU9FSuBfDMFxODz3MlWcJDFoTRBpmm6UNDBcQXBmZUPvJMEuBIIuGYEsNTgtNDQaZAB3YUQ5XFZqJR BpDI0ZCiTaOFIsUFy1TfMnJHMmLWGmro5XZMIeAEXu HQq1OPSrYOJyYKHlYNysXKBiEHOmANneTFSiBFUaLI0GDjCeVNQaEbKdWtmnRQHcSULbps8YHKSlQJUp SLBgNFSbXMIdSHFpWWvvYIAhXCFsNPO1XLHjJYLvIV0IZjAhQJRbWbK7AlYzDOUbMLAuea4NODZoVKXl NYH7AXVwNSYwNZQvUBjwXLWkIWE5CaL7MEHyOYVvXR 5TNaMdQQXkKsR5FAhmXFDeCZEpyy2SDTRcLNCfZHc0MjYsRJOgJEFyHNlhPKRwRKD2Xyh3ZGFrLJPvGH 6CZcYnEHPxFfP6HRIpGEDzVDXsfk3YIWCgLJYbMzG8MMWfYJJpDFSkMRkzIIBnIIB6KZRmNTIbALZzLS 2VRfXnIFKcOnb2FUzrLHPjSFEwsd1YVQAlPKOoXRP0 BQHbCHLqEMNnUDnxRLUcVRA1VwA2IFCtSDIxFG8NHsZzKFisQDLWJrn2YGxdA7k4ZJU1Dx3BP9Byx3Sd ZMNkDDJQURudRZ7veeUwIGGaLo5MK9dMAyxhDwN5BOMnIOidNNT7GGOrFtC2XWQsEDNoHjymPqbaIQ5g VHBuTpTvWRGyKQQvOkJ9YBTzSKN8AODpVwWfKLF2Jt FhIlMsCC7ZIx8KPlJ9QZU6uPIpPp9RVvd3QFkWLyInKS0UJPc= ID Date Data Source [id number] 04/27/2021 12:30:00 PM EDT [facility] Name Value Range Interpretation Code Description Data Arabella rce(s) Supporting Document(s) Amphetamines, Urine Negative Negative Normal (applies to non-nume ny results) [facility] Barbituates, Urine Negative Negative Normal (applies to non-numer ic results) [facility] Benzodiazepines, Urine Negative Negative Normal (a pplies to non-numeric results) [facility] Cannabanoids, Urine Positive Negative Abnormal (applies to non-numeric results) [facility] Cocaine, Urine Negative Negative Normal (applies to non-numeric r esults) [facility] Opiates, Urine Positive Negative Abnormal (applies to non-numeric results) [facility] PCP, Urine Negative Negative Normal (applies to non-numeric resul ts) [facility] Methadone, Urine Negative Negative Normal (applies to non-numeric results) [facility] DrugMinimum Detection Threshold (Conc.)A [id number] ng/mLBarbiturates 200 ng/mLBenzodiazepines 200 ng/mLCannabinoids 50 ng/mLCocaine Metabolites 300 ng/mLOpiates 300 ng/mLPhencyclidine (PCP) 25 ng/mLMethadone 300 ng/mLOxycodone 100 ng/mLNOTE: Phentermine may interfere with the amphetamine analysis.NOTE: This urine drug analysis is a screening procedure. Presumptivepositive results are unconfirmed.[facility] Laboratories recommend submitting positive specimens to areference laboratory for confirmation. Oxycodone, Urine Negative Negative Normal (applies to non-numeric results) [facility] The above 9 analytes were performed by [facility] [address], ,[place] [address] ID Date Data Source [id number] 04/27/2021 11:48:00 AM EDT [facility] Name Value Range Interpretation Code Description Data Arabella rce(s) Supporting Document(s) Glucose, Fingerstick 78 mg/dl 70-110 Normal (applies to non-num madiha results) [facility] The above 1 analytes were performed by [facility] [address],[facility] [id number],[place] [address] ID Date Data Source [id number] 04/27/2021 08:10:31 AM EDT [facility] Name Value Range Interpretation Code Description Data Arabella rce(s) Supporting Document(s) Care Plan [facility] EVMPIk7zCiWZXiJs10/LTFnmKUOrg4BtCJapGAg7ZDiwKGRbT0DvXHO7uI7eOAJ3OUeUJhIlOnErQLF6 lbm KiVmmCCbPlTQAuYxiSEvJoLNuqDkcwlTMhIZ6UnGW5YCGiK81rDOCqVNBoT6WcGYd0Yz0+LResAWK9br VmcG4OSYVyIEho2aYHrj/Yf+BuRmDYkzL7owOZaj8UCsi2MWPYv5qbQ/MQW2x1OhacRdgp89Wo7DSrHi eQe5HMOw1UWnUvM8Q+3UFLhoQQyP+Ot3Fk1P/g9Suo ySZ8ESmqUEK0rJLZiU8jWgQ094CUMlSAzyt7CUhy8HZWPLLKDZgEU8JYksX8WIyZFTmMVEmZ7O7B2NDF Yu1OMOx5JS7H8groPUdSzapkqv8R06CnnfQL5DRemJazRwWmjNYaKBiNLFgmfCqJsIiTuLXrl1QweL0w q9XUQsP5yaaAls8DjsXTeEWsc5K3bLgXG98JGvUFEg e6V9uPPAhdq5jewXzM5GU1T/MKi1SZzMtXJ3aDMWHwXmTXBf4hf9kRYWmPsKiWCENS52Uj5OmPtBn9On 4E7mE2QvvVkf0HMCYvxpwttVkPF/hbVI3W4HdYxBipWKQuEnS1t9fU9taaeOIiBqMO/2ihj0hp6PqR43 ql+PzWLDcuxisndbOurI/66mm2pTr6sZkED4/dmlsr BR2MizeANGEam9KinwpZ1xfTTqnEkzatXVoiNj4Pp4M10SrrJI7qS9+ZDlC5ZCYKh6lUPwS5zXTCLACU M2wjEGY7iU5jpEaWKL5H0ZcnQPgwBBEL3Obko2qdU3BjdQbnUQsZtoQdud2nZ/Madonna/K81h70zQnx5wp0 [file] JEUjIrDjd4UDtvATKWYw2V ID Date Data Source [id number] 04/27/2021 06:03:19 AM EDT [facility] Name Value Range Interpretation Code Description Data Arabella rce(s) Supporting Document(s) Nursing Note [facility] UUKOZk3xAoGRPvDz78/HKNsbFCHmd7MwVJyuFKt7BZpvYBXuI9LhFWR0cW0dZDK4SKsTEjZpMlNtWLM9 lbm [file] q5DwOwEI4JWg1GFtU3UMZ8qZJpFz3GMaQiYOURKqJfAI1ALUq= ID Date Data Source [id number] 04/27/2021 05:24:00 AM EDT [facility] Name Value Range Interpretation Code Description Data Arabella rce(s) Supporting Document(s) Glucose, Fingerstick 88 mg/dl 70-110 Normal (applies to non-num madiha results) [facility] The above 1 analytes were performed by [facility] [address]man, ,[place] [address] ID Date Data Source [id number] 04/27/2021 05:58:00 AM EDT [facility] Name Value Range Interpretation Code Description Data Arabella rce(s) Supporting Document(s) Blood Urea Nitrogen 9 mg/dl 7-18 Normal (applies to non-nume ny results) [facility] Creatinine 0.72 mg/dl 0.51-0.95 Normal (applies to non-numeric resul ts) [facility] N-Acetylcysteine (NAC) and Metamizole em ve the potential to falselydepress Creatinine results. Baseline values before medication adminstration are recommended. Patients undergoing treatment with phenindione will have falselydepressed results. Patients on phenindione therapy should be tested with an alternativeCREA method.Toxic levels of acetaminophen may lead to falsely depressed results forpatient samples. Glomerular Filtration Rate >90.00 mL/min/1.73m2 [facility] GFR Reference Ranges:Normal Function or Mild Renal [...] of Health and the National KidneyFoundation. The [place] method used in calculating this result is traceable to IDMS standards. Glucose 80 mg/dl 70-110 Normal (applies to non-numeric resul ts) [facility] Sulfasalazine has the potential to false ly depress Glucose results. Sulfapyridine has the potential to falsely elevate Glucose results. Baseline values before medication administration are recommended. Calcium 8.1 mg/dl 8.5-10.1 Below low normal [facility] Sodium 137 mEq/L 136-145 Normal (applies to non-numeric resul ts) [facility] Potassium 3.8 mEq/L 3.5-5.1 Normal (applies to non-numeric resul ts) [facility] Chloride 109.0 mEq/L 98.0-107.0 Above high normal [facility] Anion Gap 11.1 [facility] Carbon Dioxide 20.7 mMol/L 21.0-32.0 Below low normal [facility] The above 10 analytes were performed by [facility] [address], ,[place] [address] ID Date Data Source [id number] 04/27/2021 05:35:00 AM EDT [facility] Name Value Range Interpretation Code Description Data Arabella rce(s) Supporting Document(s) WBC 8.06 x1000/ul 4.80-10.00 Normal (applies to non-numeric re sults) [facility] RBC 3.77 x1Mil/ul 4.20-5.40 Below low normal [facility] Hemoglobin 9.8 g/dl 12.0-16.0 Below low normal [facility] Hematocrit 31.6 % 37.0-47.0 Below low normal [facility] MCV 83.8 fL 81.0-99.0 Normal (applies to non-numeric resul ts) [facility] MCH 26.0 pg 27.0-31.0 Below low normal [facility] MCHC 31.0 g/dl 32.2-37.0 Below low normal [facility] RDW 14.4 % 11.5-14.5 Normal (applies to non-numeric resul ts) [facility] Platelet Count 233 x1000/ul 130-400 Normal (applies to non-numeric results) [facility] MPV 10.0 fL 9.4-12.4 Normal (applies to non-numeric resul ts) [facility] Neutrophils 68.6 % 40.0-74.0 Normal (applies to non-numeric resu lts) [facility] Lymphocytes 21.7 % 19.0-48.0 Normal (applies to non-numeric resu lts) [facility] Monocytes 6.8 % 3.4-9.0 Normal (applies to non-numeric resul ts) [facility] Eosinophils 1.9 % 0.0-7.0 Normal (applies to non-numeric resu lts) [facility] Basophils 0.6 % 0.0-2.0 Normal (applies to non-numeric resul ts) [facility] Immature Granulocytes 0.4 % 0.0-0.5 Normal (applies to non-nu meric results) [facility] Nucleated RBCs 0.00 % 0.00-0.20 Normal (applies to non-numeric r esults) [facility] Abs. Neutrophils 5.53 x1000/ul 1.92-8.31 Normal (applies to non-numeric results) [facility] Abs. Lymphocyte 1.75 x1000/ul 1.20-3.70 Normal (applies to non-n umeric results) [facility] Abs. Monocytes 0.55 x1000/ul 0.14-0.97 Normal (applies to non-nu meric results) [facility] Abs. Eosinophils 0.15 x1000/ul 0.00-0.76 Normal (applie s to non-numeric results) [facility] Abs. Basophils 0.05 x1000/ul 0.00-0.22 Normal (applies to non-n umeric results) [facility] Abs. Immature Gran. 0.03 x1000/ul 0.00-0.02 Above high normal [facility] Abs. Nucleated RBCs 0.00 x1000/ul 0.00-0.02 Normal (appl ies to non-numeric results) [facility] The above 24 analytes were performed by [facility] [id number], ,[place] [address] ID Date Data Source [id number] 04/27/2021 03:19:48 AM EDT [facility] Name Value Range Interpretation Code Description Data Arabella rce(s) Supporting Document(s) Care Plan [facility] GNFIZv1kAaQLCtDv54/VGGoaJGVsy1FzPPceAWx2NVctZYCaU1TpDVO0jG1qCFZ7BMbTBlVfVqYoZZT0 lbm [file] ICAgICAgICAgICAgICAgICAgICAgICAgICAgICAgICAgICAgICAgICAgICAgICAgICAgICAgICAgICAg ICAgICAgICAgICAgICAgICAgICAgICAgICANCiAgIC AgICAgICAgICAgICAgICAgICAgICAgICAgICAgICAgICAgICAgICAgICAgICAgICAgICAgICAgICAgIC AgICAgICAgICAgICAgICAgICAgICAgICAgICAgICAgICAgICANCiAgICAgICAgICAgICAgICAgICAgIC AgICAgICAgICAgICAgICAgICAgICAgICAgICAgICAg ICAgICAgICAgICAgICAgICAgICAgICAgICAgICAgICAgICAgICAgICAgICAgICANCiAgICAgICAgICAg ICAgICAgICAgICAgICAgICAgICAgICAgICAgICAgICAgICAgICAgICAgICAgICAgICAgICAgICAgICAg ICAgICAgICAgICAgICAgICAgICAgICAgICAgICANCi AgICAgICAgICAgICAgICAgICAgICAgICAgICAgICAgICAgICAgICAgICAgICAgICAgICAgICAgICAgIC AgICAgICAgICAgICAgICAgICAgICAgICAgICAgICAgICAgICAgICANCiAgICAgICAgICAgICAgICAgIC AgICAgICAgICAgICAgICAgICAgICAgICAgICAgICAg ICAgICAgICAgICAgICAgICAgICAgICAgICAgICAgICAgICAgICAgICAgICAgICAgICANCiAgICAgICAg ICAgICAgICAgICAgICAgICAgICAgICAgICAgICAgICAgICAgICAgICAgICAgICAgICAgICAgICAgICAg ICAgICAgICAgICAgICAgICAgICAgICAgICAgICAgIC ANCiAgICAgICAgICAgICAgICAgICAgICAgICAgICAgICAgICAgICAgICAgICAgICAgICAgICAgICAgIC AgICAgICAgICAgICAgICAgICAgICAgICAgICAgICAgICAgICAgICAgICANCiAgICAgICAgICAgICAgIC AgICAgICAgICAgICAgICAgICAgICAgICAgICAgICAg ICAgICAgICAgICAgICAgICAgICAgICAgICAgICAgICAgICAgICAgICAgICAgICAgICAgICANCiAgICAg ICAgICAgICAgICAgICAgICAgICAgICAgICAgICAgICAgICAgICAgICAgICAgICAgICAgICAgICAgICAg ICAgICAgICAgICAgICAgICAgICAgICAgICAgICAgIC AgICANCjw/kYCmQ6ztnQPaywD7U4ncRu8YNm6UFR9kf6KgHEYrFHaoipDkLarHQjQkTCQsQemEInp4HR ycBM9OuKTiP8FnY2WyFTngSQ4ENPQhATAtePOkCTAeANUoHuZ8UJNmYZruQL9QrTWpAVzxYUAdYVWmCn KsDFDxJH5CEOLxS472foYjFo0FXf1LQwEySC9qyc3U ZaXnHKWzAoyUIdt6TZkrOI0UvYEbeZEdDuKkFYCBYmZaZ2ixb3GfYiZlPFUGRZtdFT4Do6LglLCpNGm+ Dq7BMK3cj6YiUPdqYgUiUB4xpe4TBJrGDtGoI1EjmBewRLGlojRbIThnvpAfnFYWnYpxgLVnY8DenV23 qNSiZYRUJsXbbSV1MtW7HrEvRxChPBY9HUfiKG0aMH ejFE2GFYZ7EUuzFTFgMEOxL8fCCvYbJXgqJLQiaAadOY5WScIoF0ItdwFrwAWyYWNvATREMd8+DQplbm VqQwpGQlL6ZCDgs0FnQZi7ZR7UACLlOTmiAF9NJGOvlL8sLBodGO5NMbXcKtUyAGNBKhIsN79xtFMcHU r4C4LvJwKrQMGwQjebWSEiTXfhNgVeTGIuYcZsENqa ID4+ID4+ESvsVL9JKVlejxGbUEDcQm4KXJKvAWCkIX4yKTSvOSNcK8X6nCizGPJSGuHlH0ycjkebIB4v IUCkT559xFqpegDyRXY0HYTeQd6KNLFjQDL7JEWefYOmOnYbQGZFGUqbLM8YxBQnPOF7qI7zCGdfYAZf PEGuL0rBEnNitRomXW04yBggdsIgiXLhERh+Pg0KZW 1gv0DjSEy5bnKtOEsxBRK8ODjpKGAzDSZyPHLgFBJ8TWP2TPBCHnDdALZkOFDyHXpjANQeKHGiwv6CAU PcVAE3NTB8HLUhFBDpCWJgBGgrAPFbLMZ7HZMcQOHeCLYrPV4GRtZxJEFoGEIpGJsnEAQfBMIhjs7PYO AwMDAwMzMwOSAwMDAwMCBuDQowMDAwMDAzNTEzIDAw GPZgZR4RHwDjAUNqHLGdJBRdHXGtPFQhwg9ZPGZmBQExHMCfGvGlIROdWBQkROtoYVCjNDE6GbY1NQCh NKOvEC7TMwXzSSLcNOS4FmEpARCsXAPblj9GUQOrNSKmTgX4ORBgPTZoTPNmYKheORNsAXH6QvEfYIVz FKNcPY7RQqAsFNNmPVu8PGkfUJLoAQNcja8BRWQkNO RuGtz2DDJtSWXoFYYoOJevFDFxFVBpDxHrJFQjEDQjNA8ZDyQfZIOhAwI7SLJfPVVpODJmdt6OYUGuIE MlIPl1HRIiLUTcSTTiUDylGCYpWOOeBLQ0NWAmRPXfSN5MGdIdILLzVpXsRQQkAEJuZRBius8PKADfHZ QqGoG0GeGwHRTsVUQlEFedEHMmVUBoKfmoSFUsNTXm UX2YIqGrODCjGpX2KhxbHJApUHOuli0ZNFLiVKEkHmMvFDPfDVEbYFQpJTfxZEGsSBOoCkF1ZBZdOMWb VW8DXqLdBWSfXsD9JiqjSJRrFCBufg2KRPLjDDR6NUG4UzQoTNZjFZPuYEccRAKpRFTrMFX4AYVeSPOl VW4KTnChPXJyPOKzTrLbOUUsSJPqng3AKYAcGNV0Qd R7SYGjBFAkLYNgAIbzVCQoZITnZDI7VCStWIRwNS1DZbKkCYAsSUD3DZuiJEXyHJSwvn1PKDSuTBG3Gx z6VFCxCDZdXAPtUYgmEYEuKFC1RZA2XUZhJCTqRZ3GKcTsBAGaBSE1WSYzWVSjVVVfro2OYLWxODO1Rq V9QeJbAJVhTYOvADawOJEiCEW7TPY7OVDxCKKaII1D NtOkYGApUZHtTpMvMCIhRSFkij0IeNDpiOzeyx0TCSuLOu1OhSwdXTI9YKmoYi8crBHxSgLvWVZJKy3A ttZhBPOtQXHUGWytNKQmYBIjNMJuPztvQEW3AkgcQCU9MROgNPQ9PmGmFIetBhPwEoZ3LNTaVrJpVRP6 VGHtGWU5ZisrLST4AjjvZeMiB7JuH0U+BR1dWFz+Lu5Md9HhwvC7gtAlLKe5GuAiCq1POPPFO2BOPz== ID Date Data Source [id number] 04/26/2021 11:50:00 PM EDT [facility] Name Value Range Interpretation Code Description Data Arabella rce(s) Supporting Document(s) Glucose, Fingerstick 99 mg/dl 70-110 Normal (applies to non-num madiha results) [facility] The above 1 analytes were performed by [facility] [address], ,[place] [address] ID Date Data Source [id number] 04/26/2021 06:50:00 PM EDT [facility] Name Value Range Interpretation Code Description Data Arabella rce(s) Supporting Document(s) Glucose, Fingerstick 114 mg/dl 70-110 Above high normal [facility] The above 1 analytes were performed by [facility] [address], ,[place] [address] ID Date Data Source [id number] 04/26/2021 06:45:07 PM EDT [facility] Name Value Range Interpretation Code Description Data Arabella rce(s) Supporting Document(s) Progress Notes [facility] BCKKQe9xKpRWDcIk71/JMAijZESpr2UuMTgoDIb3LLpuEWNzP5SxAGA3cZ8gAKD2SNgVOtGjLqLuRWU6 lbm [file] INTERVENTIONAL RADIOLOGY RN/iPYSUu2YZrk6fA7Vg5961K9fw4jBA//amuRmak7W86ZB88+vP7/3b6j/ucmfL3pajtGyiQBj2X4+ [file] DP0sGNo+Kd5Sy4GrnnJ4feWnBOihINR2Wy3EWNFHP9WEDu== ID Date Data Source [id number] 04/26/2021 01:21:29 PM EDT [facility] Name Value Range Interpretation Code Description Data Arabella rce(s) Supporting Document(s) Care Plan [facility] BRCOXu7tIdXTKuGw70/SAWkqBSIiz4ZlGDptBMo5QNvwDSFuR9OeTFA1qW3hVKT5LCdKCkCxNlMqIBY3 lbm [file] AgICAgICAgICAgICAgICAgICAgICAgICAgICAgICAgICAgICAgICAgICAgICAgICANCiAgICAgICAgIC AgICAgICAgICAgICAgICAgICAgICAgICAgICAgICAg ICAgICAgICAgICAgICAgICAgICAgICAgICAgICAgICAgICAgICAgICAgICAgICAgICAgICAgICAgICAN CiAgICAgICAgICAgICAgICAgICAgICAgICAgICAgICAgICAgICAgICAgICAgICAgICAgICAgICAgICAg ICAgICAgICAgICAgICAgICAgICAgICAgICAgICAgIC AgICAgICAgICANCiAgICAgICAgICAgICAgICAgICAgICAgICAgICAgICAgICAgICAgICAgICAgICAgIC AgICAgICAgICAgICAgICAgICAgICAgICAgICAgICAgICAgICAgICAgICAgICAgICAgICANCiAgICAgIC AgICAgICAgICAgICAgICAgICAgICAgICAgICAgICAg ICAgICAgICAgICAgICAgICAgICAgICAgICAgICAgICAgICAgICAgICAgICAgICAgICAgICAgICAgICAg ICANCiAgICAgICAgICAgICAgICAgICAgICAgICAgICAgICAgICAgICAgICAgICAgICAgICAgICAgICAg ICAgICAgICAgICAgICAgICAgICAgICAgICAgICAgIC AgICAgICAgICAgICANCiAgICAgICAgICAgICAgICAgICAgICAgICAgICAgICAgICAgICAgICAgICAgIC AgICAgICAgICAgICAgICAgICAgICAgICAgICAgICAgICAgICAgICAgICAgICAgICAgICAgICANCiAgIC AgICAgICAgICAgICAgICAgICAgICAgICAgICAgICAg ICAgICAgICAgICAgICAgICAgICAgICAgICAgICAgICAgICAgICAgICAgICAgICAgICAgICAgICAgICAg ICAgICANCiAgICAgICAgICAgICAgICAgICAgICAgICAgICAgICAgICAgICAgICAgICAgICAgICAgICAg ICAgICAgICAgICAgICAgICAgICAgICAgICAgICAgIC AgICAgICAgICAgICAgICANCiAgICAgICAgICAgICAgICAgICAgICAgICAgICAgICAgICAgICAgICAgIC AgICAgICAgICAgICAgICAgICAgICAgICAgICAgICAgICAgICAgICAgICAgICAgICAgICAgICAgICANCj w/sPMeG2wpvCNchiG8U3uqJw3RTi5ZUM6gs5IoWGPa KPvvsrWqZqoOQhCwQINaGmqXYqm4QXeeMR7MmHMxD5LbV1HjRJuzKU3EBNQfHYYllWGzWPGiHNVbEqG9 AZWhGJxoTA0AiTKbUCsiLVZuDENdUmMhVCRoSULnVQZcIHLcZUWADQTcFNKhVmDaHGGoZMMzHUnaCCMO CGE2QQUiLuFzXBRxOTPbChEvMKQCPZU5ZKVbZrUxOu BrENDxWwyoZYBWXBKnATIdXjUtEzNaEHBgQC9ERABeT697rjHkKZCKNf4+DQplbmRvYmoNCjUzIDAgb2 YrJQb8YV5WGFYrQsrbn1RoTCLjGFKNSKukDG4UJQK4LZE8DGMfBq5NDSMoC108shRfOM5GPl9QInGgXJ 2csa4ILQJxOHWjPqyDXef9MMyoBZ0JfDNmRBfYEBBd VXMuIE7jDmuhLG7lDIghQK8iP13oTTrqHd2AWET2FMqlCFhmJjMrATUcGZtfVIDJYRlJGwYuG2Eei2Wv QvG2BPSrLdFfUSlmXJRhRvN7IP91mMhpHV0YEIXuRYXdOF95CTQaKIUuSk9EEs2GInFfOH7pyo3NWQEc QHWvWtoODxs7QNkuHD8XnVHnT4BzoORzu1rQCoAkA0 PBVEJlIAStOj8DZVOcYgUbXYPbCYxlFV6qNVSmCAMYeZnahjK0HI8CAY3wjhYqUV9RGgJdDu2mOy8HLd IvD6ZeR6RbGHHgGELDKQjjRS4KRQtoWU9mMH5Vc9FLsFBlpM6szz9XPXZrYHPwNuwzoc3JWzqhP3U3dM iiJESzUSDwBHNUBVgmUD7ZILGgDUS5LIU4AcQfSJXR BcCwL90dFM0XT7Sef89eOjK4SZYeBhTwMCfaFM33oFdlctBvyIXtmBokAW6HLk7+DQplbmRvYmoNCnhy PSILKhWvXDUMYgBvGGGqUABwZIJpHnB5OyUpLt9EWWPiMKMtXMPzGeCnXEJrVPUrYVlmFOWcUQK9TmB4 INZoLGFcRI4UCcQuXTXcYKK2ZhPtRZLbDMUusu5WTZ TsXDCwDWE3JlNwIHCmHJNdTJxaCHMgBJTwIrbgRJZeQUDjHX9UCwCyOFNpLRF2AZYnPALsJIKuug4ZTC EdJYOaStHkIdBfRNPyKPNxQXezKLZnWJLwSOFiPOPkZOJhVH4LYaAgRKNaYBW0DBKcLTGgIFOexn0DQU HdQRIyBYf3NsQwKSSaQJAzHOmzGMHpRWD3Kvf5ZTKt QPZiDW4TNnWxCYHxXGusWXSzAHMnQJEibc1VJWKjYTSjXHMaJbGzVHFnESIjYOhoTQVkBPV1AUB0RTPl RYTnQZ5AZzDdHFGbDYY6VRGtDXRdUKKltv4QVAVuOXHrLGI8BpYcWDJiHWWjVDjfVNYmZMFnZRF7ZPPk OUWiLL6RFeDnDYNrTUC5UIZvLMCtTYWwyw3UBACjJX DrCDLyQVUbRHKvUIUfVKhsMLCwKMP6QzYzIUWoKFEpBT2AFqNtXGClZRZ8LDMpCSZrQBUjzx0IBIRgQF NmVSq9UhArBBBsDJWfWBwwRRApUYD1HsRoFLWlAYQnNX2JXmEiAQLkVOq9WUjgMXOmEDArju9DUHBhHP LzORZbKMGgGSWuRXJaWBumRSPjMHU9RTWiHKOzMVPj UG6GJwKtZFVmRgTcZFcfVTPcQVNsdq0PSTKpHPVjMMT9HqFnXWPePZCfHAfrNRYyXKRjAJF7RBAhZBCh JC6LSiSlCYZtCaUfQxMlEFIqJMPooq8WZWUjTZUaBWAiGTEiMYXvDUQgCZdlYLPeGTN6MgO4VKNwVHHp VV3EMiTgTOVwBnH9MpXpPLBdXJLnbd5DDIFsFSYtBw BwPbRyCLDiAJDtNZhnVEZlDPY1JJw6GJKrBGYgDC0DDvFtQVDpXrn0YYlyMMGjVEMwhl6LMQPxLMMzPg d3MfSmRLCdXEPnFLenVSQsFWZ2ISU2CCEjVLJjTE7BVdVxXGBsDgzhYuEwTBLaWOCowd2DTUAmOMUdVP JiNyUmZOUbNVWnZQvzBEKoOWLbYrQ6INRqPSZnOO2H NjJvZCYzICB3QYIfSLDbLBVdxy7JZMSjFPT8EqO2PRIxNWRxMCPnURtxVXFmQMChSGBrTJJyNAJiDK3X YzIqLTLaADB1IxJsPFXuVXOred0ZEXAcKYM1McVbYCIeXMXuGDEtDKnqDBVoDZCbCiU0MSIvDJXyIL1A OiAkCPYhIEN2CHExGDRcJXCusm3QIMXcUMC9UHu6MD RmQCOuXZRvTQjkROOeDWP4ISG8NYKqTGDiVY8OUkJnIRBsZOPhPGNvCPFoVJYpxs0TECNoWIQ6YLUdNW YyDWMoMDEjMMxeDPHpSXN0KPykQPBaKBYaOT6QAzMgGFXoIAtcTIJiQTAuEBNivy5WYYHeMDU6WuV6SQ QtQRAzSWDtHUc2ieXlsRFyIWv8XC5YI1SpooNyZWFY Nx2Pz885SCE1TSMvCq2ZK4hdBn3iYVPdKSUGEc1ACUy4UPK5ChZlWSL2DIGyXZUlEVd8RPQuPacdDzJd NTkyZjg+DPrnBNZ7RjRbBUF2WRS3XIL3GMTtZpQ1W6CyZbF3WTDcAI4cDNEMVe9+DQpzdGFydHhyZWYN ZwI8XfF0GJjkEBTNTl6C ID Date Data Source [id number] 04/26/2021 01:20:39 PM EDT [facility] Name Value Range Interpretation Code Description Data Arabella rce(s) Supporting Document(s) Care Plan [facility] CCDCWt7iDnHOLoJn55/XYBfqOAAbg4NiTDhvWWr9FGslQOEvM5ZiZZL7gP0aGYE1CHrZKjQjSmNxFGR9 lbm [file] [id number] ID Date Data Source [id number] 04/26/2021 12:43:10 PM EDT [facility] Name Value Range Interpretation Code Description Data Arabella rce(s) Supporting Document(s) Nursing Note [facility] QLJCZx5hAuXZFlPw61/OTEsyLPJwi1RlJEkcIAn2CNdfYMYjZ4WkYLL8cQ7dTNH9MBrDCfPuSlOlWQZ6 lbm [file] K4TGVmVGU+XP3vJFl+Zv3Zu9NmedB0jrEyTAgpLSCdHE4ZOLMGW0HZWw== ID Date Data Source [id number] 04/26/2021 12:06:00 PM EDT [facility] Name Value Range Interpretation Code Description Data Arabella rce(s) Supporting Document(s) Glucose, Fingerstick 107 mg/dl 70-110 Normal (applies to non-num madiha results) [facility] The above 1 analytes were performed by [facility] [address], ,[place] [address] ID Date Data Source [id number] 04/26/2021 04:59:00 AM EDT [facility] Name Value Range Interpretation Code Description Data Arabella rce(s) Supporting Document(s) Glucose, Fingerstick 84 mg/dl 70-110 Normal (applies to non-num madiha results) [facility] The above 1 analytes were performed by [facility] [address], ,[place] [address] ID Date Data Source [id number] 04/26/2021 05:20:00 AM EDT [facility] Name Value Range Interpretation Code Description Data Arabella rce(s) Supporting Document(s) AST 15 IU/L 15-37 Normal (applies to non-numeric resul ts) [facility] Sulfasalazine and sulfapyridine have the potential to falsely depressAspartate Aminotransferase results. Baseline values before medication administration are recommended. ALT 19 IU/L 13-56 Normal (applies to non-numeric resul ts) [facility] Sulfasalazine and sulfapyridine have the potential to falsely depressAlanine Aminotransferase results. Baseline values before medication administration are recommended. Alkaline Phosphatase 53 mIU/ml 50-136 Normal (applies to non-num madiha results) [facility] Total Bilirubin 0.70 mg/dl 0.20-1.00 Normal (applies to non-numeric results) [facility] Blood Urea Nitrogen 11 mg/dl 7-18 Normal (applies to non-nume ny results) [facility] Creatinine 0.76 mg/dl 0.51-0.95 Normal (applies to non-numeric resul ts) [facility] N-Acetylcysteine (NAC) and Metamizole em ve the potential to falselydepress Creatinine results. Baseline values before medication adminstration are recommended. Patients undergoing treatment with phenindione will have falselydepressed results. Patients on phenindione therapy should be tested with an alternativeCREA method.Toxic levels of acetaminophen may lead to falsely depressed results forpatient samples. Glomerular Filtration Rate 85.00 mL/min/1.73m2 [facility] GFR Reference Ranges:Normal Function or Mild Renal [...] of Health and the National KidneyFoundation. The [place] method used in calculating this result is traceable to IDMS standards. Glucose 81 mg/dl 70-110 Normal (applies to non-numeric resul ts) [facility] Sulfasalazine has the potential to false ly depress Glucose results. Sulfapyridine has the potential to falsely elevate Glucose results. Baseline values before medication administration are recommended. Calcium 7.8 mg/dl 8.5-10.1 Below low normal [facility] Total Protein 6.4 g/dl 6.4-8.2 Normal (applies to non-numeric re sults) [facility] Albumin 2.9 g/dl 3.4-5.0 Below low normal [facility] Sodium 139 mEq/L 136-145 Normal (applies to non-numeric resul ts) [facility] Potassium 4.0 mEq/L 3.5-5.1 Normal (applies to non-numeric resul ts) [facility] Chloride 113.0 mEq/L 98.0-107.0 Above high normal [facility] Anion Gap 9.3 [facility] Carbon Dioxide 20.7 mMol/L 21.0-32.0 Below low normal [facility] The above 16 analytes were performed by [facility] [address], ,[place] [address] ID Date Data Source [id number] 04/26/2021 05:20:00 AM EDT [facility] Name Value Range Interpretation Code Description Data Arabella rce(s) Supporting Document(s) Magnesium 2.1 mg/dl 1.6-2.6 Normal (applies to non-numeric resul ts) [facility] The above 1 analytes were performed by [facility] [address], ,[place] [id number] ID Date Data Source [id number] 04/26/2021 04:54:00 AM EDT [facility] Name Value Range Interpretation Code Description Data Arabella rce(s) Supporting Document(s) WBC 7.39 x1000/ul 4.80-10.00 Normal (applies to non-numeric re sults) [facility] RBC 3.51 x1Mil/ul 4.20-5.40 Below low normal [facility] Hemoglobin 9.3 g/dl 12.0-16.0 Below low normal [facility] Hematocrit 30.1 % 37.0-47.0 Below low normal [facility] MCV 85.8 fL 81.0-99.0 Normal (applies to non-numeric resul ts) [facility] MCH 26.5 pg 27.0-31.0 Below low normal [facility] MCHC 30.9 g/dl 32.2-37.0 Below low normal [facility] RDW 15.4 % 11.5-14.5 Above high normal [facility] Platelet Count 256 x1000/ul 130-400 Normal (applies to non-numeric results) [facility] MPV 10.5 fL 9.4-12.4 Normal (applies to non-numeric resul ts) [facility] Neutrophils 48.7 % 40.0-74.0 Normal (applies to non-numeric resu lts) [facility] Lymphocytes 41.1 % 19.0-48.0 Normal (applies to non-numeric resu lts) [facility] Monocytes 7.3 % 3.4-9.0 Normal (applies to non-numeric resul ts) [facility] Eosinophils 1.6 % 0.0-7.0 Normal (applies to non-numeric resu lts) [facility] Basophils 0.9 % 0.0-2.0 Normal (applies to non-numeric resul ts) [facility] Immature Granulocytes 0.4 % 0.0-0.5 Normal (applies to non-nu meric results) [facility] Nucleated RBCs 0.00 % 0.00-0.20 Normal (applies to non-numeric r esults) [facility] Abs. Neutrophils 3.59 x1000/ul 1.92-8.31 Normal (applies to non-numeric results) [facility] Abs. Lymphocyte 3.04 x1000/ul 1.20-3.70 Normal (applies to non-n umeric results) [facility] Abs. Monocytes 0.54 x1000/ul 0.14-0.97 Normal (applies to non-nu meric results) [facility] Abs. Eosinophils 0.12 x1000/ul 0.00-0.76 Normal (applie s to non-numeric results) [facility] Abs. Basophils 0.07 x1000/ul 0.00-0.22 Normal (applies to non-n umeric results) [facility] Abs. Immature Gran. 0.03 x1000/ul 0.00-0.02 Above high normal [facility] Abs. Nucleated RBCs 0.00 x1000/ul 0.00-0.02 Normal (appl ies to non-numeric results) [facility] The above 24 analytes were performed by [facility] [id number], ,[place] [address] ID Date Data Source [id number] 04/26/2021 02:31:41 AM EDT [facility] Name Value Range Interpretation Code Description Data Arabella rce(s) Supporting Document(s) Care Plan [facility] KFLZJb8rVpEHZkUk18/QLZkfUHPih8IaGJmcIVd1WTyxDKQqL4RgSCY9cG2hWXY6NGbPHuTeYgGmWGO8 lbm [file] JATKW3LMDb== ID Date Data Source [id number] 04/25/2021 11:21:00 PM EDT [facility] Name Value Range Interpretation Code Description Data Arabella rce(s) Supporting Document(s) Glucose, Fingerstick 84 mg/dl 70-110 Normal (applies to non-num madiha results) [facility] The above 1 analytes were performed by [facility] [address], ,[place] [address] ID Date Data Source [id number] 04/25/2021 11:09:15 PM EDT [facility] Name Value Range Interpretation Code Description Data Arabella rce(s) Supporting Document(s) Nursing Note [facility] OTNSVu0aZiFIBhLf11/MCKpdQBKbd0EoWXelRDr5FWffNKEtY1DdIPT2qY2bWVI5OZwRErRjObZvMDK2 lbm CqQhjLVsSsBVKlFigHVsLmZPbwOizhnNNzCP1NbYZ1BIXwM01lNPGcBLHaZ4RuJPLzFnp+Ie7KONJurN QsHP2LRtcX0JodxqaQGB8g4V+HcvFt5Y0lwVmsMKOoPFFSLSRsb87ydIRU8Un0O6BhqO9nsPEXpVlgPQ 1yTYCoPOBVAS0czhYPKzR/+0ttDbQTAT6zAtlu1AIH 755EjTuhamInYoLXFTXsST2josboxmJaLoBjVB/ZYPql8oVfVWsLzJZzfCxHoT5qTLy7TxuRpkVmSZMG v1J5DjAZVyiwXfwRjfx03tWETDfsGr/jLXZxkgAklBPAjVjYCqWQ9PU32hGrp8DNy4HFALGlkyCmlhLI SWK8OrilP6npiDbO8aZ2pz55Trb9SKN8d1VFVCjDTV FH8yW5l9SN5x7ldChI4bVH+xhnTcSvzpMLRa6mHowQAEhSU9mpUnMHtPpGoPYfZxyNDruDugFZfPypZP NgdMjuO8+Maddy/+tiFfTh/Qh3NhNMCn9vrqexWyBZMFgcbx4D4lSfDtifFQW+mc3Lu6uQJuYU0Rak4MNd [file] V3LMN0iXGsFn8OVeMwZJOFYhPgUD4LMIz= ID Date Data Source [id number] 04/25/2021 07:08:57 PM EDT [facility] Name Value Range Interpretation Code Description Data Arabella rce(s) Supporting Document(s) H&P [facility] UMHLVv8qRsNADjZb97/SRRotSVDvd7UeBLjpMWk0CPoaVVGuN8HwBMA5iO6wRBQ6DHnLUvQeKmPyRSU1 lbm [file] MjEgMCBSDQogICAgICAvRjIgMjQgMCBSDQogICAgIC KsTtRnVthkOAOYYNicWCKyMGWlRfMzHaAbYOKVGQmnUOIaVQRdBsFkQfTjTENJAz1MTaZtWWZrAE5blq QqbLL0WGH+Ii6YBUWdRX0YeGRMD7VxzNVpGItmZ3TUUM2UAUX6FA9YmNJlMT6LtRYOV0YqhPAjYd7gPQ Dpc2UtQg2sF3DRQGIMMJIdZChpPNplTINpBYn5U4T5 ZCHgO7HED817jLStaHv4Mn2iQ2PZAXrKNlDgHMjiPGqiJSSiXTd3D9R9BEJbX9LCA7GpIiFaaqQrL0R+ WzMaLQXZYP1YVAKHLMt3T5S3pDBbJ8I9tVpAzMX4AR8PZB3AsRTiqGUdi59+HkAWVuMnKHVsZ4CXRQPM OcUlUAqtEHuxAIYiBDy6W9H4WHMqV6WXK8riQ2q6LD 4+NuIXJvQkNFZfNc0PXcKsAg3RGtJxES3cok2CZjAvKUBhCjoBFqb2P7ozayi6uNOmTtE1F5X1OiN5jT QvXM4BP2L5yXNwFUB3XVFukNC+Rb5Pm2KyLEFsHWf4G5rwJISdGEIrJwEewW49C++9pzmqoZO1W9r8JQ KMhPZnvCdYllBwG7pXBRV2s6G7QEq/Hv1NYMT6eGu6 dXAkQRKgWCw3wK3raNg9VoMgMD94SVIsOCbyiZ6cChq7V1Dfp9RfCp9nSm9ziZLxEz8SWdGvOKY0mlKa LfHNMoL9cQalagysFQX0G0p6wTP7Zo21f8rytxCmr7KnAwV6NNofNQQhDfRbusMcZFZ3cxAqvH1ekxOs Vj5SBBEvWRufmvZcJaHRGo9SCyDzIX13LdzwwZ2zfV E+DQogICAgICAgICAgICAgICAgICAgICAgICAgICAgICAgICAgICAgICAgICAgICAgICAgICAgICAgIC AgICAgICAgICAgICAgICAgICAgICAgICAgICAgICAgICAgICAgICAgICAgDQogICAgICAgICAgICAgIC AgICAgICAgICAgICAgICAgICAgICAgICAgICAgICAg ICAgICAgICAgICAgICAgICAgICAgICAgICAgICAgICAgICAgICAgICAgICAgICAgICAgICAgDQogICAg ICAgICAgICAgICAgICAgICAgICAgICAgICAgICAgICAgICAgICAgICAgICAgICAgICAgICAgICAgICAg ICAgICAgICAgICAgICAgICAgICAgICAgICAgICAgIC AgICAgDQogICAgICAgICAgICAgICAgICAgICAgICAgICAgICAgICAgICAgICAgICAgICAgICAgICAgIC AgICAgICAgICAgICAgICAgICAgICAgICAgICAgICAgICAgICAgICAgICAgICAgDQogICAgICAgICAgIC AgICAgICAgICAgICAgICAgICAgICAgICAgICAgICAg ICAgICAgICAgICAgICAgICAgICAgICAgICAgICAgICAgICAgICAgICAgICAgICAgICAgICAgICAgDQog ICAgICAgICAgICAgICAgICAgICAgICAgICAgICAgICAgICAgICAgICAgICAgICAgICAgICAgICAgICAg ICAgICAgICAgICAgICAgICAgICAgICAgICAgICAgIC AgICAgICAgDQogICAgICAgICAgICAgICAgICAgICAgICAgICAgICAgICAgICAgICAgICAgICAgICAgIC AgICAgICAgICAgICAgICAgICAgICAgICAgICAgICAgICAgICAgICAgICAgICAgICAgDQogICAgICAgIC AgICAgICAgICAgICAgICAgICAgICAgICAgICAgICAg ICAgICAgICAgICAgICAgICAgICAgICAgICAgICAgICAgICAgICAgICAgICAgICAgICAgICAgICAgICAg DQogICAgICAgICAgICAgICAgICAgICAgICAgICAgICAgICAgICAgICAgICAgICAgICAgICAgICAgICAg ICAgICAgICAgICAgICAgICAgICAgICAgICAgICAgIC AgICAgICAgICAgDQogICAgICAgICAgICAgICAgICAgICAgICAgICAgICAgICAgICAgICAgICAgICAgIC LuZIFqKGCaZIOtKTXgVSElNAZdGBKkMTPxXWMcZDPiYFHxYADsEOIdIVKhVMOvTPDjEUBrLPf0Q6zhOE KyXFLdRN0xPMs9Hy2+AZgUZbZvCOE8llSqmE8HFH5s m9LcNZjeYAWso8CjWBr4QK8YFGVkANdfPS3RDPyomo3HYBIeWBXnlMVAi5wmWtPqDUN4BSMnEuztNW6B EAQbH5aiucShGJUrQSZXTJumUGUVKRbyYZOFOSXmPEPgRjBsMeFrISYdOJEwMLCYOD5ZDyUwW1RknL88 IDYNCj4+GRffecXyEjlSPuD2PRVgk2CzIJi4KF6XYN MnOgopa5MhPorkBXPRAQqgUI7LYZD0UUS7HZUfSc0ITTEoY664dyPfAS1FBi2ZQhNdNY2vks4JAallEN FeBhvWGsl2VBatAK6SlNCpWJeAGuKgCbnsBVTqpVD1YZF3RWT1MZNFNSYhzMI4AeU9BzRpWjLdSSU1UE FqJC0pCKazZC5SBNI9GVebRGRiALInS2pQSlSiZTcw HFIjrYhcIS1UWoJrP3RnphChsGLyShUgPDSXMn0+JIscgzXbGgfJZpH1PSEgv5NgCNb4AW0MREKzCCel EL3OUQYnqI4hIMtcSK1NLpByZUYwHUNQWyIzG56rbRPaFKb9U7TcSlDzHBVbEcmxLAVxTLsuGnDqSXVp WyBdDQogID4+ID4+VGljYO9EFBhmzpLmXQCpMz1PDF VkYQKeJC3kQIBsQBDiF0W6zAtvGSSTSvVbS6ywspllZZ8tAGZuA808mXvildAxXHE4AWZgSi3RCBVwNX A3QRHptOMpRjIxRRMGEWheJP4JtCJcQZB6qX1pPZhuOZFgFLLjN2fSMbQivWirPO21mMggcsAvgBJhXK o+Jo1PYV5lo5DyOPo7uvFkZZhyEYU1OCrsDKTmAJAl LAIiEQZ0RJI4PIELZzGfNDMrFCJdDMlmPTMlOPKxrf1CPITkEFKuOkY0JCMfDRBwBMNwRMddYLYuWFE9 WMDdEQQjFWDdLX1SBiMlIDTvWXSvOXqlFKLoYCBuzx7INYVlTFRhJqE3IjMtLUUiTVZjQRftAJAlXLRz RbQrNTDvEGUeTT2NGeKhCSJjSTQdCToqUHWiXCXjmm 8MCMWwOVRrEvI6FdZzMYRyRDToSHmcIWFiQIV4NCU8AKIbLMHsMN1YQzBdCBYsWVocZwAoEJZcNWVrux 2YXIHaDLRrKDS0WPVtRFYiYPVsHWwtBQEnQYYoULU4GIPwAXHdSQ6NAlEmUMHbQISvUlOnVWXsGQJdkx 2FRHOsOFXwNON9LECyXXAmJCYaHVgsOOFrQVT3PlM5 QKVmEDQeXT6MCwPdCXIqBZC1AqCuLKWeSKYjyr7SWLIyAYNlQXl6VPDfUKDfQQTtNSouYRStJGO3BMyy JJLyJCElOY2PAlAhUJInOIPrKAQvTFNsNZAwmp9YITLjPQLmMhD3JSAjWUFzRTBgFXwsGINbTBV9QMC8 CGZbVEUxVS0YApDnIWCeHQy5AmDpPXOkXGKpwe6MOY CzVAWeJPX2NKDsAVJdDRMlQHukTFGjYXS9Vel4UCXcSWYxNI5ZJbIcMPCvYYf7WgXtRYWlZIZimk8WXZ OcMOOsQXxnDtXeWRJcWDWoTBolQKAdEPPhNJGmGBKoZSWmOC2BSdUmIBIyWdUiEeYeYHOzOJJhqh7ILT GqLIKgUDS7MRPeZZIvCBMeNLoaXLAiFTVxJDw9TBQg DGCePD9LOeAiCQNyDcW1RqYvUIWtFKUowk2QUVEsMIFmXdVxAyHxWYNrWLBvWZvqWINdYXFkVLJ0AORo KCMpXZ4IAoAwYLHqNrEoDuXiNPTqOQMqvc8TCUUxDDEwShIyAUKoZBHlQSXxTQawBVYdTQX3TFvnYNRn SNCkZB1OIqOjCVTtEjNnBHFqPCYgSSOzsr7CALFvBI FrVJU8JJFjFLXwIXOiPAj0kyMunIArSPa9VD1ND9DhfmYiNzpNZh8Gl269SKI7MYYwVx1CM4wmYw4gZZ NoLWRMZe5EATg9OEHpUNKkW7ToQvQ8QPzxOWKwHFaeDiAoKLQaRIOjBRO+DSl6TAEaBMP7EtIpYIoeY0 M6BVVmYFFoMAWbPhXjQZIyAG4jKRWEIc6+AGzkkYBdmWtoWRWVYeI5LFDkVZjlBQCPWz7P ID Date Data Source [id number] 04/25/2021 06:53:16 PM EDT [facility] Name Value Range Interpretation Code Description Data Arabella rce(s) Supporting Document(s) Care Plan [facility] GCTTYa1yWkVYYrKs68/BNUszMUAst9MmWAewWNf5TJrlRPQzD1WqPXU8nH0tGIF2KTxPOaVdDnXuJRC0 lbm [file] cDCljBllFMZEIsZ9HDh8YZpvROTPUl5A ID Date Data Source [id number] 04/25/2021 05:55:38 PM EDT [facility] Name Value Range Interpretation Code Description Data Arabella rce(s) Supporting Document(s) Consults [facility] SHRXOq4hPnFFWeAy93/EYUgrNBPwh1PkCMkqMJl6GYxmTZSjB2HqHBM2vZ8rTWO2GGrJNvRsUrJdQSE7 lbm [file] CARLOS A+fMlYfdBrCiP1eQgXBq6MasYOBa0vxzEdPrh0daF [file] k6Yhu3HcQgOjUtFk2dWXIIXv5+MLopcVZqsQjpBIQDXfVlTAVeXTizBNUXIb6P ID Date Data Source [id number] 04/25/2021 05:13:00 PM EDT [facility] Name Value Range Interpretation Code Description Data Arabella rce(s) Supporting Document(s) Urine Color Yellow Light-Yellow,Yellow Normal (applies to no n-numeric results) [facility] Urine Appearance CLEAR CLEAR Normal (applies to non-numeric results) [facility] Urine Specific [place] 1.034 1.015-1.025 Above high normal [facility] Urine pH 6.5 5.0-7.0 Normal (applies to non-numeric resul ts) [facility] Urine Protein TR NEG Abnormal (applies to non-numeric results) [facility] Urine Glucose NEG NEG Normal (applies to non-numeric re sults) [facility] Urine Ketone NEG NEG Normal (applies to non-numeric res ults) [facility] Urine Bilirubin NEG NEG Normal (applies to non-numeric results) [facility] Urine Blood NEG NEG Normal (applies to non-numeric resu lts) [facility] Urine Urobilinogen NORM <0.2,1.0,<2.0,0.2 Abnormal (a pplies to non-numeric results) [facility] Urine Leukocyte Esterase NEG NEG Normal (applies to non -numeric results) [facility] Urine Nitrite NEG NEG Normal (applies to non-numeric re sults) [facility] [facility] The above 12 analytes were performed by [facility] [address], ,[place] [address] ID Date Data Source [id number] 04/25/2021 05:04:00 PM EDT [facility] Name Value Range Interpretation Code Description Data Arabella rce(s) Supporting Document(s) T3 65.42 ng/dl 60.00-181.00 Normal (applies to non-numeric re sults) [facility] The above 1 analytes were performed by [facility] [address], ,[place] [address] ID Date Data Source [id number] 04/25/2021 04:45:00 PM EDT [facility] Name Value Range Interpretation Code Description Data Arabella rce(s) Supporting Document(s) PT, No Coag Tx/Coag Tx Unk 11.7 Seconds 10.2-12.9 Judith l (applies to non-numeric results) [facility] Attention: Effeciive 01/03/2020 The nor mal range [...] 0.9-1.1 Nor mal (applies to non-numeric results) [facility] Suggested therapeutic INR ranges for ora l anticoagulant therapy: Indication:INRPrevention and treatment of DVT and PE2.0 - 3.0Prevention of systemic embolism with atrial fib., acute [place] and 2.0 -3.0 tissue prosthetic heart valves.Prevention of systemic embolism in patients with mechanical heart2.5 -3.5 valves.NOTE: The INR is only valid for patients on stable oral anticoagulanttherapy. The above 2 analytes were performed by [facility] [address], ,[place] [address] ID Date Data Source [id number] 04/25/2021 04:45:00 PM EDT [facility] Name Value Range Interpretation Code Description Data Arabella rce(s) Supporting Document(s) PTT, No Coag Tx/Coag Tx Unk 30.1 Seconds 25.1-36.5 Norm al (applies to non- numeric results) [facility] Attention: Effective 01/03/2020Please no te the change in reference range for PTT (No Coag Tx/Coag TxUnk) ResultsPrevious Reference Range: 24.9-30.6 secondsNew Reference Range: 25.1-36.5 secondsDiscrepant results may occur due to anticoagulant effects such asheparin, direct thrombin inhibitors; argatroban (Acova), bivalirudin(Angiomax) or dabigatran (Pradaxa) or direct factor Xa inhibitors;rivaroxaban (Xarelto), apixaban (Eliquis) and edoxaban (Savaysa).The above 1 analytes were performed by [facility] [address],[facility] [id number] [address] ID Date Data Source [id number] 04/25/2021 04:33:00 PM EDT [facility] Name Value Range Interpretation Code Description Data Arabella rce(s) Supporting Document(s) WBC 6.78 x1000/ul 4.80-10.00 Normal (applies to non-numeric re sults) [facility] RBC 3.60 x1Mil/ul 4.20-5.40 Below low normal [facility] Hemoglobin 9.3 g/dl 12.0-16.0 Below low normal [facility] Hematocrit 30.3 % 37.0-47.0 Below low normal [facility] MCV 84.2 fL 81.0-99.0 Normal (applies to non-numeric resul ts) [facility] MCH 25.8 pg 27.0-31.0 Below low normal [facility] MCHC 30.7 g/dl 32.2-37.0 Below low normal [facility] RDW 15.3 % 11.5-14.5 Above high normal [facility] Platelet Count 266 x1000/ul 130-400 Normal (applies to non-numeric results) [facility] MPV 10.1 fL 9.4-12.4 Normal (applies to non-numeric resul ts) [facility] Neutrophils 43.7 % 40.0-74.0 Normal (applies to non-numeric resu lts) [facility] Lymphocytes 44.7 % 19.0-48.0 Normal (applies to non-numeric resu lts) [facility] Monocytes 9.1 % 3.4-9.0 Above high normal [facility] Eosinophils 1.3 % 0.0-7.0 Normal (applies to non-numeric resu lts) [facility] Basophils 0.9 % 0.0-2.0 Normal (applies to non-numeric resul ts) [facility] Immature Granulocytes 0.3 % 0.0-0.5 Normal (applies to non-nu meric results) [facility] Nucleated RBCs 0.00 % 0.00-0.20 Normal (applies to non-numeric r esults) [facility] Abs. Neutrophils 2.96 x1000/ul 1.92-8.31 Normal (applies to non-numeric results) [facility] Abs. Lymphocyte 3.03 x1000/ul 1.20-3.70 Normal (applies to non-n umeric results) [facility] Abs. Monocytes 0.62 x1000/ul 0.14-0.97 Normal (applies to non-nu meric results) [facility] Abs. Eosinophils 0.09 x1000/ul 0.00-0.76 Normal (applie s to non-numeric results) [facility] Abs. Basophils 0.06 x1000/ul 0.00-0.22 Normal (applies to non-n umeric results) [facility] Abs. Immature Gran. 0.02 x1000/ul 0.00-0.02 Normal (appl ies to non-numeric results) [facility] Abs. Nucleated RBCs 0.00 x1000/ul 0.00-0.02 Normal (appl ies to non-numeric results) [facility] The above 24 analytes were performed by [facility] [address], ,[place] [address] ID Date Data Source [id number] 04/25/2021 05:24:00 PM EDT [facility] Name Value Range Interpretation Code Description Data Arabella rce(s) Supporting Document(s) Lipase 162 IU/L 73-393 Normal (applies to non-numeric resul ts) [facility] The above 1 analytes were performed by [facility] [address], ,[place] [address] ID Date Data Source [id number] 04/25/2021 05:24:00 PM EDT [facility] Name Value Range Interpretation Code Description Data Arabella rce(s) Supporting Document(s) Magnesium 2.3 mg/dl 1.6-2.6 Normal (applies to non-numeric resul ts) [facility] The above 1 analytes were performed by [facility] [address], ,[place] [address] ID Date Data Source [id number] 04/25/2021 05:24:00 PM EDT [facility] Name Value Range Interpretation Code Description Data Arabella rce(s) Supporting Document(s) AST 11 IU/L 15-37 Below low normal [facility] Sulfasalazine and sulfapyridine have the potential to falsely depressAspartate Aminotransferase results. Baseline values before medication administration are recommended. ALT 17 IU/L 13-56 Normal (applies to non-numeric resul ts) [facility] Sulfasalazine and sulfapyridine have the potential to falsely depressAlanine Aminotransferase results. Baseline values before medication administration are recommended. Alkaline Phosphatase 56 mIU/ml 50-136 Normal (applies to non-num madiha results) [facility] Total Bilirubin 0.80 mg/dl 0.20-1.00 Normal (applies to non-numeric results) [facility] Blood Urea Nitrogen 12 mg/dl 7-18 Normal (applies to non-nume ny results) [facility] Creatinine 0.69 mg/dl 0.51-0.95 Normal (applies to non-numeric resul ts) [facility] N-Acetylcysteine (NAC) and Metamizole em ve the potential to falselydepress Creatinine results. Baseline values before medication adminstration are recommended. Patients undergoing treatment with phenindione will have falselydepressed results. Patients on phenindione therapy should be tested with an alternativeCREA method.Toxic levels of acetaminophen may lead to falsely depressed results forpatient samples. Glomerular Filtration Rate >90.00 mL/min/1.73m2 [facility] GFR Reference Ranges:Normal Function or Mild Renal [...] of Health and the National KidneyFoundation. The [place] method used in calculating this result is traceable to IDMS standards. Glucose 81 mg/dl 70-110 Normal (applies to non-numeric resul ts) [facility] Sulfasalazine has the potential to false ly depress Glucose results. Sulfapyridine has the potential to falsely elevate Glucose results. Baseline values before medication administration are recommended. Calcium 7.8 mg/dl 8.5-10.1 Below low normal [facility] Total Protein 6.4 g/dl 6.4-8.2 Normal (applies to non-numeric re sults) [facility] Albumin 3.0 g/dl 3.4-5.0 Below low normal [facility] Sodium 140 mEq/L 136-145 Normal (applies to non-numeric resul ts) [facility] Potassium 4.0 mEq/L 3.5-5.1 Normal (applies to non-numeric resul ts) [facility] Chloride 113.0 mEq/L 98.0-107.0 Above high normal [facility] Anion Gap 10.2 [facility] Carbon Dioxide 20.8 mMol/L 21.0-32.0 Below low normal [facility] The above 16 analytes were performed by [facility] [address] [facility], ,[place] [address] ID Date Data Source [id number] 04/25/2021 05:24:00 PM EDT [facility] Name Value Range Interpretation Code Description Data Arabella rce(s) Supporting Document(s) TSH 28.10 uIU/ml 0.36-3.74 Above high normal [facility] Concentrations of Biotin above 100 ng/mL can potentially result ininterference.The above 1 analytes were performed by [facility] [address] [facility], ,[place] [id number] ID Date Data Source [id number] 04/25/2021 05:24:00 PM EDT [facility] Name Value Range Interpretation Code Description Data Arabella rce(s) Supporting Document(s) T4, Free 0.63 ng/dl 0.59-1.61 Normal (applies to non-numeric resul ts) [facility] The above 1 analytes were performed by [facility] [address] [facility], ,[place] [address] ID Date Data Source [id number] 04/25/2021 03:04:52 PM EDT [facility] Name Value Range Interpretation Code Description Data Arabella rce(s) Supporting Document(s) Progress Notes [facility] [id number]3LToVOsVkOnQuNXS1 [facility] [file] [id number] ID Date Data Source [id number] 04/25/2021 07:30:00 AM EDT [facility] CT SCAN OF THE ABDOMEN AND PELVIS [...] rce(s) Supporting Document(s) ID Date Data Source [id number] 04/25/2021 04:43:00 AM EDT [facility] Name Value Range Interpretation Code Description Data [facility] rce(s) Supporting Document(s) [facility] by [facility] and reported by [facility]. ID Date Data Source [id number] 04/25/2021 05:04:00 AM EDT [facility] jay TSYSORDER [id number] Name Value Range Interpretation Code Description Data Arabella rce(s) Supporting Document(s) COVID-19 NEGATIVE NEGATIVE [facility] Negative results should be treated as [...] are for the indentification of SARS-CoV-2 RNA. GlvOWDX-NxD-1 RNA is generally detectable in respiratorysamples during the actue phase of infection. ID Date Data Source [id number] 04/25/2021 01:27:00 AM EDT [facility] TSYSORDER [id number] Name Value Range Interpretation Code Description Data Arabella rce(s) Supporting Document(s) TSH 44.303 uIU/mL 0.358-3.74 H [facility] ID Date Data Source [id number] 04/25/2021 01:24:00 AM EDT [facility] [id number] Name Value Range Interpretation Code Description Data Arabella rce(s) Supporting Document(s) LACTIC ACID 0.8 mmol/L 0.4-2.0 [facility] ID Date Data Source [id number] 04/25/2021 01:24:00 AM EDT [facility] TSYS[facility] [id number] Name Value Range Interpretation Code Description Data Arabella rce(s) Supporting Document(s) C REACTIVE PROTEIN < 0.5 mg/L 0.0-3.0 [facility] ital ID Date Data Source [id number] 04/25/2021 01:24:00 AM EDT [facility] TSYSORDER [id number] R [id number] Name Value Range Interpretation Code Description Data Arabella rce(s) Supporting Document(s) MAGNESIUM 2.3 mg/dL 1.8-2.4 [facility] ID Date Data Source [id number] 04/25/2021 01:24:00 AM EDT [facility] TSYSORDER [id number] R [id number] Name Value Range Interpretation Code Description Data Arabella rce(s) Supporting Document(s) LIPASE 308 U/L 73-393 [facility] ID Date Data Source [id number] 04/25/2021 01:24:00 AM EDT [facility] TSYSORDER [id number] R [id number] Name Value Range Interpretation Code Description Data Arabella rce(s) Supporting Document(s) GLUCOSE 93 mg/dL 74-106 [facility] BLOOD UREA NITROGEN 19 mg/dL 7-18 H [facility] ital CREATININE 0.80 mg/dL 0.6-1.0 [facility] SODIUM 137 mmol/L 136-145 [facility] POTASSIUM 5.2 mmol/L 3.5-5.1 H [facility] CHLORIDE 103 mmol/L 98-107 [facility] CO2 23 mmol/L 21-32 [facility] CALCIUM 9.2 mg/dL 8.5-10.1 [facility] ANION GAP 11.0 mmol/L 5-12 [facility] GLOMERULAR FILTRATION RATE 80 mL/min [facility] GFR IS CALCULATED IN mL/min/1.73m2 JUDITH L FUNCTION: >90MILDLY DECREASED: 60-89MILDY TO MODERATELY DECREASED: 45-59 MODERATELY TO SEVERELY DECREASED: 30-44SEVERELY DECREASED: 15-29RENAL FAILURE: <15 AST 28 U/L 15-37 [facility] ALT 24 U/L 12-78 [facility] ALKALINE PHOSPHATASE 70 U/L 46-116 [facility] pital TOTAL BILIRUBIN 0.5 mg/dL 0.2-1.0 [facility] TOTAL PROTEIN 7.9 g/dl 6.4-8.2 [facility] ALBUMIN 3.7 gm/dL 3.4-5.0 [facility] ID Date Data Source [id number] 04/25/2021 12:58:00 AM EDT [facility] TSYSORDER [id number] Name Value Range Interpretation Code Description Data [facility] rce(s) Supporting Document(s) WHITE BLOOD COUNT 9.7 K/mm3 4.0-10.0 [facility] al RED BLOOD COUNT 4.28 M/mm3 4.00-5.50 [facility] HEMOGLOBIN 11.1 gm/dL 12.0-16.0 L [facility] HEMATOCRIT 34.7 % 36.0-48.8 L [facility] MEAN CELL VOLUME 81.1 fl 80-96 [facility] MEAN CORPUSCULAR HEMOGLOBIN 25.9 pg 27.0-31.0 L [facility] MEAN CORPUSCULAR HGB CONC 32.0 g/dl 32.0-36.0 [facility] RED CELL DISTRIBUTION WIDTH 15.1 % 10.0-14.5 H [facility] PLATELET COUNT 169 K/mm3 172-450 L [facility] MEAN PLATELET VOLUME 11.9 fl 9.0-13.0 [facility] pital GRAN % 49.6 % 50-80.0 L [facility] IG% 0.1 % 0.0-0.2 [facility] LYMPH % 39.5 % 25.0-50.0 [facility] MONO % 8.5 % 2.0-10.0 [facility] EOS % 1.4 % 0-5.0 [facility] BASO % 0.9 % 0.0-2.0 [facility] GRAN # 4.8 K/mm3 2.0-8.00 [facility] IG# 0.0 K/mm3 0.0-0.2 [facility] LYMPH # 3.8 K/mm3 1.0-5.0 [facility] MONO # 0.8 K/mm3 0.10-1.20 [facility] EOS # 0.1 K/mm3 0.0-0.5 [facility] BASO # 0.1 K/mm3 0.0-0.2 [facility] ID Date Data Source [id number] 04/16/2021 06:48:00 PM EDT [facility] Patient: SIENNA FOSTER Observation [facility].VisitID: [id number] [place] [address] [phone], FRegistration Date/Time: 04/12/2021 20:14 Weight:74.8 kg (S). Height/Length:68 [...] 125 mcg) 1 tablet, daily, last dose 04/12/21am. Allergies:Amitriptyline.(hives) (suicidal thoughts)Bees.(Anaphylaxis)Maxalt.(Anaphylaxis) (coma)Seasonal. FAMILY HISTORYNo significant family medical history. (Electronically signed by Harley Morgan PA-C 04/13/2021 01:06) Name Value Range Interpretation Code Description Data Arabella rce(s) Supporting Document(s) ID Date Data Source [id number] 04/13/2021 06:12:00 PM EDT [facility] DATE OF EXAMINATION: 04/12/2021 21:05 EDT ABD/PEL [...] rce(s) Supporting Document(s) ID Date Data Source [id number] 04/12/2021 10:15:00 PM EDT [facility] TSYSORDER [id number] Name Value Range Interpretation Code Description Data Arabella rce(s) Supporting Document(s) LIPASE 368 U/L 73-393 [facility] ID Date Data Source [id number] 04/12/2021 10:15:00 PM EDT [facility] TSYSORDER [id number] Name Value Range Interpretation Code Description Data Arabella rce(s) Supporting Document(s) GLUCOSE 87 mg/dL 74-106 [facility] BLOOD UREA NITROGEN 19 mg/dL 7-18 H [facility] ital CREATININE 0.82 mg/dL 0.6-1.0 [facility] SODIUM 139 mmol/L 136-145 [facility] POTASSIUM 4.3 mmol/L 3.5-5.1 [facility] CHLORIDE 103 mmol/L 98-107 [facility] CO2 24 mmol/L 21-32 [facility] CALCIUM 9.7 mg/dL 8.5-10.1 [facility] ANION GAP 12.0 mmol/L 5-12 [facility] GLOMERULAR FILTRATION RATE 78 mL/min [facility] GFR IS CALCULATED IN mL/min/1.73m2 JUDITH L FUNCTION: >90MILDLY DECREASED: 60-89MILDY TO MODERATELY DECREASED: 45-59 MODERATELY TO SEVERELY DECREASED: 30-44SEVERELY DECREASED: 15-29RENAL FAILURE: <15 AST 10 U/L 15-37 L [facility] ALT 26 U/L 12-78 [facility] ALKALINE PHOSPHATASE 77 U/L 46-116 [facility] pital TOTAL BILIRUBIN 0.6 mg/dL 0.2-1.0 [facility] TOTAL PROTEIN 8.5 g/dl 6.4-8.2 H [facility] ALBUMIN 4.0 gm/dL 3.4-5.0 [facility] ID Date Data Source [id number] 04/12/2021 10:13:00 PM EDT [facility] TSYSORDER [id number] Name Value Range Interpretation Code Description Data Arabella rce(s) Supporting Document(s) HCG,SERUM NEGATIVE NEGATIVE [facility] False negative results may occur when th e levels of hCG arebelow the sensitivity level of the test. If isstill suspected, a first morning urine specimen should becollected 48hrs later.This test has a sensitivity of 10mIU/mL in serum dzf66pGO/mL in urine. ID Date Data Source [id number] 04/12/2021 09:56:00 PM EDT [facility] TSYSORDER [id number] Name Value Range Interpretation Code Description Data Arabella rce(s) Supporting Document(s) WHITE BLOOD COUNT 10.7 K/mm3 4.0-10.0 H [facility] jay RED BLOOD COUNT 4.20 M/mm3 4.00-5.50 [facility] HEMOGLOBIN 11.1 gm/dL 12.0-16.0 L [facility] HEMATOCRIT 33.5 % 36.0-48.8 L [facility] MEAN CELL VOLUME 79.8 fl 80-96 L [facility] MEAN CORPUSCULAR HEMOGLOBIN 26.4 pg 27.0-31.0 L [facility] MEAN CORPUSCULAR HGB CONC 33.1 g/dl 32.0-36.0 [facility] RED CELL DISTRIBUTION WIDTH 15.7 % 10.0-14.5 H [facility] PLATELET COUNT 358 K/mm3 172-450 [facility] MEAN PLATELET VOLUME 10.7 fl 9.0-13.0 [facility] pital GRAN % 62.7 % 50-80.0 [facility] IG% 0.2 % 0.0-0.2 [facility] LYMPH % 27.7 % 25.0-50.0 [facility] MONO % 8.4 % 2.0-10.0 [facility] EOS % 0.5 % 0-5.0 [facility] BASO % 0.5 % 0.0-2.0 [facility] GRAN # 6.7 K/mm3 2.0-8.00 [facility] IG# 0.0 K/mm3 0.0-0.2 [facility] LYMPH # 3.0 K/mm3 1.0-5.0 [facility] MONO # 0.9 K/mm3 0.10-1.20 [facility] EOS # 0.1 K/mm3 0.0-0.5 [facility] BASO # 0.1 K/mm3 0.0-0.2 [facility] ID Date Data Source [id number] 04/12/2021 09:16:00 PM EDT [facility] TSYSORDER [id number] Name Value Range Interpretation Code Description Data Arabella rce(s) Supporting Document(s) URINE RBC 1-3 /hpf 0-3 [facility] URINE WBC 0-2 /hpf 0-5 H [facility] URINE EPITHELIAL CELLS 1+ /hpf 0 [facility] URINE BACTERIA 3+ NONE SEEN H [facility] ID Date Data Source [id number] 04/12/2021 09:15:00 PM EDT [facility] TSYSORDER [id number] Name Value Range Interpretation Code Description Data Arabella rce(s) Supporting Document(s) URINE COLOR. [facility] URINE APPEARANCE CLEAR [facility] UR[facility] GLUCOSE (UA) NEGATIVE mg/dL NEGATIVE [facility] URINE BILIRUBIN NEGATIVE NEGATIVE [facility] URINE KETONE NEGATIVE mg/dL NEGATIVE [facility] SPECIFIC GRAVITY,URINE 1.020 1.005-1.030 [facility] URINE BLOOD TRACE NEGATIVE [facility] PH,URINE 5.5 5.0-9.0 [facility] URINE PROTEIN NEGATIVE mg/dL NEGATIVE [facility] URINE UROBILINOGEN NORMAL(0.2-1) mg/dL 0-1 R [facility] URINE NITRATE NEGATIVE NEGATIVE [facility] URINE LEUKOCYTE ESTERASE NEGATIVE NEGATIVE [facility] ID Date Data Source [id number] 04/02/2021 12:00:00 AM EDT [facility] Name Value Range Interpretation Code Description Data Arabella rce(s) Supporting Document(s) SARS-CoV-2 NEGATIVE [facility] This lab was ordered by [facility] and reported by [employer]. ID Date Data Source [id number] 04/02/2021 12:00:00 AM EDT DAVID ([facility]) Name Value Range Interpretation Code Description Data Arabella rce(s) Supporting Document(s) SARS-CoV-2 (COVID-19) RNA [Presence] in Respiratory specimen by MELINDA with probe detection negative negative Sars-cov-2 [facility] ([facility]) ID Date Data Source [id number] 04/02/2021 12:00:00 AM EDT [facility] ([facility]) Name Value Range Interpretation Code Description Data Arabella rce(s) Supporting Document(s) ID Date Data Source [id number] 03/31/2021 07:42:12 PM EDT [facility] Name Value Range Interpretation Code Description Data Arabella rce(s) Supporting Document(s) Discharge Summary [facility] [id number] lbm [file] [id number]== ID Date Data Source [id number] 03/27/2021 08:58:00 PM EDT [facility] Name Value Range Interpretation Code Description Data Arabella rce(s) Supporting Document(s) Nursing Note [facility] [id number]zVMjVcPgWeRZA6 lbm [file] [id number] ID Date Data Source [id number] 03/27/2021 08:57:40 PM EDT [facility] Name Value Range Interpretation Code Description Data Arabella rce(s) Supporting Document(s) Care Plan [facility] [id number] lbm [file] [id number]= ID Date Data Source [id number] 03/27/2021 11:56:07 AM EDT [facility] Name Value Range Interpretation Code Description Data Arabella rce(s) Supporting Document(s) Nursing Note [facility] [id number]/DALvfKTZwn0ToRFblTEn9ICuuIETyS5LoODD3iB6tSUH1RYkKBpSnYrBnQGV2 lbm [file] machine pecan gatherer/VbYra/52MtVT4jtma1kxESOsBYW7FCaVnk5s6gJurkp/BvRC0+d4zs82qx8fEp7pr4rM/DPMscSF [file] 9GDQo= ID Date Data Source [id number] 03/27/2021 10:35:44 AM EDT [facility] Name Value Range Interpretation Code Description Data Arabella rce(s) Supporting Document(s) Perioperative Nursing Note [facility] CWHZYd9uXxATArNv27/CHMvtSDEse7FiNXbrMKa6NSvjKREsG1OqRFJ6fB0hLVX1DXiLXoFzEvViJLU0 lbm GaFflZArUqCPXeTgzVEiNtQQxeMgtnsWNjQC3XyHA5EGPoF10mDNLsHWPaC6EcIOs5UR3+JZugWRK0as XkkZ9ZBPTOC1xu4cRTyZ+wf+TsXcSGRPv8WKCBuwuINEMpwx/YLUFja9xOlHGUBdxEV7mn3NNRzGvoQi fn2dMA92yNAwnT0i6keUXVQHUi//AoFIPpEt6+gcrN Wph60yRpBjmJnRPBLzcIj85LmFGhVEG1vOAL2JjdzXtHRWHiXO0cqPPBjog7VYLyN5YvXHCWKHNtUvh8 QDjTeSFKEuunlKM+RaPU746lAKkwiSdqQf1hZnb0JR1gqEVlDLc2LPgjcmrN4ql1mabUgL9yO62mg2Zf RQvIt2+Mvm/tVf3Zd6IQyuBxJu+cY+dCmwYXS9Mdve TD1i1spml2qPGhZAcNhXQ1UkxfuIXzKpRWGLNAR5LN74wn0PLw8u1bRnpMCc+VjGQJk1tyE6kqHF4AaA kIjSe3LNprle0xetTnQV8yOCJ4DM/fpwfVL4HvnLED2d4nTCQdGc4c2Mic9J96x347CVqfvZMLyvVaux GhTi3fTIkgljQ/qiK7KNtVukDQYPkZCABm8fky1INm REYES+yZH1pJKe6b7eU5bzMhS1V4Nd5L4sFoumF3k4I6T3btp1WfUW/M0mNT8ljjhQQxfPrr90ZHBD+Lt3E [file] IKDnNkWzL6NQgwDBRAAm3H ID Date Data Source [id number] 03/27/2021 10:29:41 AM EDT [facility] Name Value Range Interpretation Code Description Data Arabella rce(s) Supporting Document(s) Perioperative Nursing Note [facility] TKEDQr7eDnQPVmZw74/JEReaZAShi1RzXLkvOSd4PHylJQCsI7DzYBC9yU0kGCD0AJmWNxNtUmHmWDC7 lbm [file] HqYhEO6EZSg= ID Date Data Source [id number] 03/27/2021 10:29:01 AM EDT [facility] Name Value Range Interpretation Code Description Data Arabella rce(s) Supporting Document(s) Anesthesia Postprocedure Evaluation [facility] IYDQMi7eZnUFItWp79/IIKmhMDIpb8TzMMglALk3KBsxHEKxL8QoQIN1fD7vTTL5OJmOJtYsIhLoKVH1 lbm [file] Lead Cook+mBK1pkWf3SJxjZy3Nlh0zOmh8p0hB/IlO2cpi6wiX8I9aSt8XEg2xGR3E73gOC/HDiwk4SwdOD+NE e1lMrVNho3QGGSKa4eq4TVHgzct/0jgVdAkjSVE88x wIPAtzutgsSJ35SmUzaplqMvaKBn4t1Uk69rUU7opXIb+/4yqO5Wkk2IuE9NOpC3xOb0fVHOCrxl2a8a Soj4eLZ3iVNyfwx91AEqM4EinMo8Gh2mhK94rAD1fs4vq8UgboDvcG7pnIKiPwVFMUW/Wcl9uDHSaO4L I8sPg067vDD4jOWP5YhvdDJhE5cCacphCpIr9gWKIR 1rY1wTgpYmKrFsnKD67B9sXFxEi/6mX5aEjH7jSvi5ypBSxBQfc+QWjGPWw6/IRDcmp9qqKnP+5Mx96G L97pWBKeJsP49j4iFpoigwCyL7PyTWP6RfYdUnvBMZpqGfvdtRKqfoWwzfgESE3ef60H8ky63yK8J3Za NMY3Tek1nOD+l34BFo4bVvZkB1UuicsMyhzmNCeU8z pYKPqhfRtqKaoT5lRaN5xndM1B72H31TU7fv4c1cBO1dz8ti5FAOClH4D6RX5kKlWAWBpy1z58IfC3WQ 2mMh8xjmC2gRev+5yZj674RvCkRY/SHwxFM0+QaiNrqFj3nheMm4xWPSWm5N6oBNtgQT07rdVeDsDXk2 1tgtxuPVPrLblY9PEQ20Gw/vlad/fYjGBYtJS2psdpW [file] Rg0K ID Date Data Source [id number] 03/27/2021 10:28:51 AM EDT [facility] Name Value Range Interpretation Code Description Data Arabella rce(s) Supporting Document(s) Procedures [facility] FDEORk5wRcIKLdTh63/VKViyVXAme9VpCVgdRIp9NOuqXHOwU1WvMWL7mX0tBRG7JGaJCzMcGtJsCUR9 lbm [file] ICAgICAgICAgICAgICAgICAgICAgICAgICAgICAgICAgICAgICAgICAgICAgICAgICAgICAgICAgICAg XAKkWQIcWMOxBAVjGNLxFZBgDWAcXEBfBBAoWNHsKGByFXIfKP2DBDVbHCXoOGKpVTZiTGBlYFRdIPAn ICAgICAgICAgICAgICAgICAgICAgICAgICAgICAgIC JwPSAfGATsJZGzWXXgGYKgKGSbOTUgAQXwDCNgZBXsFCShXSWgZLLxLBRdVCXvOZ1XPYJqNUIpVKKuOD AgICAgICAgICAgICAgICAgICAgICAgICAgICAgICAgICAgICAgICAgICAgICAgICAgICAgICAgICAgIC GcBFOoYWVmIXUyRYWlVVRnCREgSNTxQFLhSKJbLM7X ICAgICAgICAgICAgICAgICAgICAgICAgICAgICAgICAgICAgICAgICAgICAgICAgICAgICAgICAgICAg IDVzZGVlMISuVZAsUUNiQALqRUKuSTMfVGLmQUNgHOZuDPPcUNOcUV8JAGIaKRThZIQaSTQpOXEaDYPg ICAgICAgICAgICAgICAgICAgICAgICAgICAgICAgIC JbOSUkEJBfEAVcHDHiVYUvOOGeTMDxEVYfDYLfAOWzZJIxLYZjONHtUHDhMXMsAFWkXH3AIHKuOHRnCL AgICAgICAgICAgICAgICAgICAgICAgICAgICAgICAgICAgICAgICAgICAgICAgICAgICAgICAgICAgIC AgICAgICAgICAgICAgICAgICAgICAgICAgICAgICAg NE7WCHXyPYCyMRAlNITjSPJkINYpGVVrHOUyYGGdQPJtVWVvMLTfBMJlTNMxRCDzRADeTUNfOWOsYUGs BKJkCHDdWNQlDSEyEEEcDOYrXGSyOIKmTGUmMCAwTXRcKRSaOKDyFKZaGG4PWXKjZTFpVSJmJMLnACCb ICAgICAgICAgICAgICAgICAgICAgICAgICAgICAgIC CbRWObEXSkEHWmJEEzZTUuDKRyCAQyEEEwXOMuNSFbYGGoFSFeIJEjFNCiLKIaCSKhLGRmCH8ZHNOyZI AgICAgICAgICAgICAgICAgICAgICAgICAgICAgICAgICAgICAgICAgICAgICAgICAgICAgICAgICAgIC AgICAgICAgICAgICAgICAgICAgICAgICAgICAgICAg QWJcEO4BNNAzMTXwTCKvZZIyMYByJHPcXTUgCAOeAMVuFXGoZGQlONTmIPYxILYgDGAyQQUtFPAoZUOk AGRuOPTnDKSwULSzCHJqMCJnFIDhSGUeFJYwJQSpRAPmOVCaXKZeZUIqFHBuGO9NBB94mDQnd4Z7EZBc MM8fryg/Kw7RGOsoahJylJOnFE5EIqOmWX9igv4MUw UkRY9vun7VXTxGFbBoY0M0gTNnOQOeERPOPmYqQ00nSGccVm57KCimJRBmOtJaCQm3Vk6FYoKyX7ejLT PlXiF0XXXsAkO5INFxQyD9HXLiIgHnYQqfOE6Gg6AipXAmIEt+Ps0VDQ0nc1GzJGjsClMdLA0sei2UTB pZQbWeI5FfanS1XLZ7TUVcTh6XSMKtNLArbFZhZgWa QDYHDwEyX7IjqX99NRFDNy6+OZflxnQaEsdWCzB1WZVyp7SaFZu2UD9KDAMjOSz2tAKrMBGrO3AkpLCc eaVtaSgeODKuOlirByZkKBjlzFDHd3hbcndxBCXaXGUyFH0aLW2qVDKuLZKaMsE1DYVPAP9OYKLhLSCl eZCmVMAqSIIVGT5LRJoxHFR3OdwytsJexRCfFFfgED 9QYXJlbnQgMjYgMCBSDQo+Ot0BYI2nq1QfMBroCGOiOE8bwd0ECSrJArEyZ7D5rRIvE6G9CFwiNc1TBN SwYCPdLkHlTXGOUArmPT3AEZ6okbP6BN6OkAWtOBMiYBNehEGxDTe0G41exQLnKTnbZU6BYQR+Mau+Pg 4REXLjWNMtAFNaVbSnRFPSAqBkQ8OeV7RKy5TpW1Ny QK68zWdmoxQqLOszDM5HUP9aFELfGSCLBQ3DxMNxaY6zkhVoIjUrYTJMXgTjN58ykAEjGKLbZIB0NYLz Qq1AVSRuU9RrktMmoYvuvlWcJAJsREOBIE5GGNzybaVinKAluUsuCL53uRvvZY2LEj4EVyVwFA4lgq2U nCIwCc9SZYYkYL1HDUXlDOIyMLIiFKJ3MSVxXzWwAN svNHUmUVCqHVA6KWQtGLMtJS2DNmMkIMJqGdIbHUvbIPHiAGVuje3BBCFyHJNsTnz4XMEiYFEpTVEeQF klUZJjQIPyGET4AVBiYDFbXZ1DTmDqXXHiGOZyIIuyJXKtCDDinh0KPVVtIGPhToF6FvXySMUaNKCcMS feGMAjZROnPTR7IOQyZRIzQD7OGjQjNTVvMGDxSsnr KAShTYOyur5FKGUmLSXuYED0JRGhRYFqTQCwYGchYDHlASH0Gzx5ZFPvXOAbUA6JMeZpBLYzMBT3PjXh FDWiNZLthy8QIRLhBWQdMGwcQmZbZHYxVJKxQAnySJMjRBK0DFU7LBOtXBHeJD4AWeFdQQZnWQynJHIy NXPvREQbde1OKQPhCMUyYqM8ESIpKWDcRKMuBZheKZ OaDSN5NCZ9DZXjVPEsEK0GRsMgZQOlCRg7WTDqHMLvVIEzyw9LPOVuSDDjXWXxHLFdQOMbUZQyWUjaTQ SgKGPeSmS9EUCbWIGwCL0HFtMmTBByDjB5BlvuHJZrZIVijs5KIRPmEIJuYGikJXMpHMFqNHVvARtjVW MqPTIyWtT6JWHwFYJdEJ5LPwFcCITmDaX1NVGhKZMn HFHzth8HLZQkZLIeOdLiIoNuSNPrOUQaMQpeNYMwAKSrNFO0ALNlQRXdBZ7LXoNrAOLuBfV1ZJNqBXXi OWNlbh9GQLFdSTKhSsw4YUBtRGNwDFLeFMdcKSIjQPK8TRX2VALbHCHqWM9ZFgYtCXjeSCROAca0AVax L6l0SMDjCO2WM5Mno5QeOsaaEXNTUKtlXE9lguGnAP BaYy3VN4oMBccjCZGqWCAoFDlvZVfbXrHtTuC7IsCfGqBjSJGyStQmPU1tPGJfUfTfDOC8HMBbLLQ0Kf BhLQJ9HVPfGXJ9RUBlJTOaWpOzHD8AWn0ZHgS5UZJ3kWCyWk9LVdLaSoMRTuKjRK1TMDm= ID Date Data Source [id number] 03/28/2021 09:48:00 AM EDT [facility] [address] [place] [address] CN PATHOLOGY CLIA# [id number] Surgical Pathology ReportPATIENT: SIENNA FOSTER CASE NUMBER:[id number] #: [id number] Date Collected:03/27/2021ount #: [id number] Date Received:03/27/2021OB: 1980 Age: 40 y.o. Date [...] cm. They are totally submittedin one cassette. AP/edwardo Electronically SignedBy:ICD: R89.7x2 Wai Castañeda, MDCPT: [id number] PathologistI ATTEST THAT THE ABOVE DIAGNOSIS IS BASED UPON MY PERSONAL MICROSCOPIC EXAMINATION OF THE SLIDES (AND/OR OTHER MATERIAL), AND THAT I HAVE REVIEWED AND APPROVED THIS REPORT.PERFORMED AT: [place], [place] [address]THE TECHNICAL COMPONENT WAS PERFORMED AT [facility], [address] [place] [address].ASSISTANT CHIEF NURSING OFFICER: WAI CASTAÑEDA M.D. CLIA# [id number].FOSTERSIENNA Page 1 of 1 Name Value Range Interpretation Code Description Data Arabella rce(s) Supporting Document(s) ID Date Data Source [id number] 03/27/2021 09:15:49 AM EDT [facility] Name Value Range Interpretation Code Description Data Arabella rce(s) Supporting Document(s) Anesthesia Preprocedure Evaluation [facility] IKTFRr3qEnXSKhTs43/VLPudJHKbi5UeDWkpGAm3HFthMXNnP4OaIAU2yA9bJGH3TOiXFjKfCmSkBHM7 lbm [file] 6A0wpt3Q+c8TacZn8ETo72GUZDSkWy93ku68A4+director of rehabilitation [file] ICAgICAgICAgICAgICAgICAgICAgICAgICAgICAgICAgICAgICAgICAgICAgICAgICAgICAgICAgICAg ICAgICAgICAgICAgICAgICAgICAgICAgICAgICAgICAgICAgDQogICAgICAgICAgICAgICAgICAgICAg ICAgICAgICAgICAgICAgICAgICAgICAgICAgICAgIC AgICAgICAgICAgICAgICAgICAgICAgICAgICAgICAgICAgICAgICAgICAgICAgDQogICAgICAgICAgIC AgICAgICAgICAgICAgICAgICAgICAgICAgICAgICAgICAgICAgICAgICAgICAgICAgICAgICAgICAgIC AgICAgICAgICAgICAgICAgICAgICAgICAgICAgDQog ICAgICAgICAgICAgICAgICAgICAgICAgICAgICAgICAgICAgICAgICAgICAgICAgICAgICAgICAgICAg ICAgICAgICAgICAgICAgICAgICAgICAgICAgICAgICAgICAgICAgDQogICAgICAgICAgICAgICAgICAg ICAgICAgICAgICAgICAgICAgICAgICAgICAgICAgIC AgICAgICAgICAgICAgICAgICAgICAgICAgICAgICAgICAgICAgICAgICAgICAgICAgDQogICAgICAgIC AgICAgICAgICAgICAgICAgICAgICAgICAgICAgICAgICAgICAgICAgICAgICAgICAgICAgICAgICAgIC AgICAgICAgICAgICAgICAgICAgICAgICAgICAgICAg DQogICAgICAgICAgICAgICAgICAgICAgICAgICAgICAgICAgICAgICAgICAgICAgICAgICAgICAgICAg ICAgICAgICAgICAgICAgICAgICAgICAgICAgICAgICAgICAgICAgICAgDQogICAgICAgICAgICAgICAg ICAgICAgICAgICAgICAgICAgICAgICAgICAgICAgIC AgICAgICAgICAgICAgICAgICAgICAgICAgICAgICAgICAgICAgICAgICAgICAgICAgICAgDQogICAgIC AgICAgICAgICAgICAgICAgICAgICAgICAgICAgICAgICAgICAgICAgICAgICAgICAgICAgICAgICAgIC AgICAgICAgICAgICAgICAgICAgICAgICAgICAgICAg ICAgDQogICAgICAgICAgICAgICAgICAgICAgICAgICAgICAgICAgICAgICAgICAgICAgICAgICAgICAg GHUlOYEhETJlQTDmWZNhGBEpUAHgUKWyMTGoMHDlSYLlBAPqYTGkQATvCQSsOOi9Z3dzWAOsUUUxIO3p CPc6Jn0+ENnVCtJzRYY3qcLyiB2ONG6he0MiHZlbMN Etm6JqCMu8RH2CGKYhLWibEE5PCTvhaw0KQIFsZNCdzBAXq6zyHpQnDXA4KUWkDwosVS1FDYJvS1zwyx RyPSWhWNHXVKiePHGBUJ4BKuWwA4KfcT01YZSLUo9+CLzfviClSchJYcR5ERMkt8ZwZTn9GQ9XXPMiCh lbb1SeXqssKSRMYNdwSN4TEXG5SFG6QDDuNs8GRNPs O376oqUxSN6YIg6AImZkIF9jwc4PMyfpMIJnPelHXjs2EWkeGD6JqTRrWToDfyUdyVzfp2wyQCLmYBYv i2AnINIwZZEWfjKjsCR1pG2tNXG4HKXaGITpXHOdOuVsNS3rrbvlRJGuTKTsXJ6hUS9pIRAdEXR8RiXa QHMUBB1NIENtGQBifXUhBXHnPVGWYW0SLCtnMEG7Ep ufznAwcIEtILcjEZ0UEKDeabNuXamwFKLFWJg+Qr0GQC1na7BsQMydETJyXY8ksj1RKPfDJoWzY6G2tC NcZ2T7FCozCl5NLGLaYLZeNcJgYNCFRIqsAZ4KCB8emiI3NJ6UzIDpFQLeWYSkxTIoRMq1O03jfYIpSS ktXR6ZDZO+Mau+Il6RVALoPSXfWAFmQnPqINEYGgHw U9EuG5BWq7SoG6HrFN51lTzgliVuDFfbUS9PNI8uAUKaJWUDVP7QsOXgeB1uecGvNtUiIWNXLbUgK04v jMUfSWNsBFU8YHAuHe8MOPMfT4CvjfTufOfgueCvSZVnLHJJIO1YHHyvpyIyqMDvfQukLS05eLdlCB9D Zd3ZQfPwNW5wpd1NmEPpWm6QYULiEV5CUDTbONGdHR PiIZX5EWHgMiZxSDqsCAWzDBQzFMA4QQJwSLGmHQ3FNjUsKYRvHrP0IivhZXLlZGVijp8GWYGrMRMfOl T7NHXyWFBiYMNcNGsuRAFjGTKiNVI7LPLkVWKdHD8DJxIcKXOhFCKdLKxdDLSuKUOvul1JWDLkKVKrFi YlDvDzJIAdBPWwZHubJOGgPDPtIPZ1PVKeXPEzKL7R XuInDHVsWDDhAWViZMQjUHRkvf2OOGTiLGCkKEDlXAYePYJkPVPnMHmuXEOsWRP9JgU6ULNwIJJsSR6A FjXrKYTgPII2FTMuQIIxSIXnjm6TACBvKHOjQWM9XBMwPTAvJXCbYLrfAIIdWSG0RtSdFDNyVXItWX8Q TmTyJNJpACK2IqLxZFBzCLNgks6IAHKzEJZxTGX7SL OxXAHjTOVtVAbeYEHkFJQ1WVQtCSWeYIAuBM8FCpAiHFTqRZz3MMibQYFnFWIhzh2WHWDlQITrDOz1VD TvIUVdAJEbWYsbJCAkGMW0OVb1BXKiXWIiFF6UYpUaCYGoSbBaGvdkCWLsPEGxlo1YCBQuZMCaGVUlCk IkILDzFKZqTGiePYIdIQLjMyz4YTZzVKZtVK6VAeAv UXKhMjCxHbkjWMJlKJQadr2TKKQrNVMoPFGrOEPlPDNqJBDySApsNTAqFAEbGeC9CUAlRQMoTW5UFsVd HBMlMjPvDZNaBFJhLVBjfk2GPXUsZSLjMwL8UYQmHVGzTNAjMBirKJCzYKOjPrU7XBWvVQTsAQ8SJyOo XMVnGwI3PyDaADJmGYYgau6PxHEtjLljkv8YYFxDOd 3OqMvaRBNwGYndAl2eqLLzQUCkLROYIn3KetAqEPXzZOTPTEhzGLUcKON4QHF1BOS1EPSpBDIwRHdiJA hjWTz6QCRpILAlJGLcVpA4WHGhBVncIiJ0LrM2MLQ7ZAY4TPYvZOszIVBfK2A9FkK+MP0fNRw+Pg0Kc3 MagrK9mlWfYLnlRTK6BH6HZMZMC3JMPo== ID Date Data Source [id number] 03/27/2021 01:32:01 AM EDT [facility] Name Value Range Interpretation Code Description Data Arabella rce(s) Supporting Document(s) Nursing Note [facility] ZCQHRj2pGpBQKtZo01/MDNyyHSZdn3WmLGonWIu5XFwqOHHsA7JjTJH6bB0xENH9REjFPyTeBbKtJVH2 lbm [file] H9LGDjTPQ2VdC6PHP0YEblPeYlUY9OZu9EAmI9VQE7hWZuQt3JWimgUF6LVLVUA7EXFi== ID Date Data Source [id number] 03/27/2021 01:30:51 AM EDT [facility] Name Value Range Interpretation Code Description Data Arabella rce(s) Supporting Document(s) Care Plan [facility] NCTIQh7gJaEBRmBe14/ZUBtpLKZer3IfGTodVSr0HCwlWJBkN6ErEFV9xF7xXPL3TRcHCsApHiBxOYZ5 lbm [file] PtXwgfXANrOWM5DPx7HGsfUuwaQ4MlAWb+BL4mSRq+Hf2Si0UczfS7grDeMNm0QMa6WUnkQTTTKs6A ID Date Data Source [id number] 03/26/2021 06:10:50 PM EDT [facility] Name Value Range Interpretation Code Description Data Arabella rce(s) Supporting Document(s) Nursing Note [facility] KBYWZr8zLvNIEbGd99/FFOisINZbl3SrIFnfOXt7CWltHIPaM8KzKXY3hJ4wDVK6QJmUYbHwQfCeFEZ3 lbm [file] lpLCOKWt0D ID Date Data Source [id number] 03/26/2021 06:01:18 PM EDT [facility] Name Value Range Interpretation Code Description Data Arabella rce(s) Supporting Document(s) Progress Notes [facility] JAUXOa9eCmLQWvUz94/KFSqzQPUbb7IiBTkzTTd8UBvkBHIaO0LiTCK6pY3tNEA4FUhIAsJrNdPoYGE1 lbm [file] [id number] ID Date Data Source [id number] 03/31/2021 04:38:00 PM EDT [facility] Name Value Range Interpretation Code Description Data Arabella rce(s) Supporting Document(s) Calprotectin, F <16 mcg/g <=50.0 (Normal) Normal (applies to non-numeric results) [facility] Test Performed by:[facility] [address] [address] Director: Rashawn Vides M.D. Ph.D.; CLIA# [id number] above 1 analytes were performed by [facility] ([id number]) ID Date Data Source [id number] 03/27/2021 11:30:00 AM EDT [facility] Name Value Range Interpretation Code Description Data Arabella rce(s) Supporting Document(s) Campylobacter Not Detected Not Detected Normal (applies to non-nume ny results) [facility] Norovirus Not Detected Not Detected Normal (applies to non-numeric r esults) [facility] Rotavirus Not Detected Not Detected Normal (applies to non-numeric r esults) [facility] Salmonella Not Detected Not Detected Normal (applies to non-numeric r esults) [facility] Shiga Toxin 1 Not Detected Not Detected Normal (applies to non-nume ny results) [facility] Shiga Toxin 2 Not Detected Not Detected Normal (applies to non-nume ny results) [facility] Shigella Not Detected Not Detected Normal (applies to non-numeric r esults) [facility] Vibrio Not Detected Not Detected Normal (applies to non-numeric r esults) [facility] Y. enterocolitica Not Detected Not Detected Normal (applie s to non-numeric results) [facility] Enteric Pathogen Panel:Testing performed by reverse auto body man, PCR and array hybridization.A negative test result does not rule out the presence of diseaseThe above 9 analytes were performed by [facility] [id number], ,[place] [address] ID Date Data Source [id number] 03/26/2021 02:23:09 PM EDT [facility] Name Value Range Interpretation Code Description Data Arabella rce(s) Supporting Document(s) Progress Notes [facility] IAMCQh1oYkZJDuPe36/NHPonVMXcn0ZtELfdPYc5RPlkFCTlM5FuATF2zR0eXCF2IIaPElKiRqQoOMZ8 lbm [file] AgBlOiY6GDanWUX6IDZtRXVjPms+CK6fKBe+Yx3Zk4AomwC2xjYjENsdHaV9Lp1BWZTDU5SUAp== ID Date Data Source [id number] 03/26/2021 12:38:41 PM EDT [facility] Name Value Range Interpretation Code Description Data Arabella rce(s) Supporting Document(s) Care Plan [facility] PSVNXs8uBbMDJsJr08/EVVpcCRXwy8DjVWygTOe6EXjtJZRhG5QoJUV9wU8dBXX2IMlNEuJuUdZzTHK9 lbm [file] josé miguel/VnCugzHbVNoTqN+nrXEzLWjoKta7ubBw1XbQyfEgamRB57XE7W2xO1TzGRuY5NL0HYWtWd5mG1/5 [file] shaker [file] AgICAgICAgICAgICAgICAgICAgICAgICAgICAgICAgICAgICAgICAgICAgICAgICAgICAgICAgICAgIC AgICAgICAgICAgICAgICAgICAgICAgICAgDQogICAg ICAgICAgICAgICAgICAgICAgICAgICAgICAgICAgICAgICAgICAgICAgICAgICAgICAgICAgICAgICAg ICAgICAgICAgICAgICAgICAgICAgICAgICAgICAgICAgICAgDQogICAgICAgICAgICAgICAgICAgICAg ICAgICAgICAgICAgICAgICAgICAgICAgICAgICAgIC AgICAgICAgICAgICAgICAgICAgICAgICAgICAgICAgICAgICAgICAgICAgICAgDQogICAgICAgICAgIC AgICAgICAgICAgICAgICAgICAgICAgICAgICAgICAgICAgICAgICAgICAgICAgICAgICAgICAgICAgIC AgICAgICAgICAgICAgICAgICAgICAgICAgICAgDQog ICAgICAgICAgICAgICAgICAgICAgICAgICAgICAgICAgICAgICAgICAgICAgICAgICAgICAgICAgICAg ICAgICAgICAgICAgICAgICAgICAgICAgICAgICAgICAgICAgICAgDQogICAgICAgICAgICAgICAgICAg ICAgICAgICAgICAgICAgICAgICAgICAgICAgICAgIC AgICAgICAgICAgICAgICAgICAgICAgICAgICAgICAgICAgICAgICAgICAgICAgICAgDQogICAgICAgIC AgICAgICAgICAgICAgICAgICAgICAgICAgICAgICAgICAgICAgICAgICAgICAgICAgICAgICAgICAgIC AgICAgICAgICAgICAgICAgICAgICAgICAgICAgICAg DQogICAgICAgICAgICAgICAgICAgICAgICAgICAgICAgICAgICAgICAgICAgICAgICAgICAgICAgICAg ICAgICAgICAgICAgICAgICAgICAgICAgICAgICAgICAgICAgICAgICAgDQogICAgICAgICAgICAgICAg ICAgICAgICAgICAgICAgICAgICAgICAgICAgICAgIC AgICAgICAgICAgICAgICAgICAgICAgICAgICAgICAgICAgICAgICAgICAgICAgICAgICAgDQogICAgIC AgICAgICAgICAgICAgICAgICAgICAgICAgICAgICAgICAgICAgICAgICAgICAgICAgICAgICAgICAgIC AgICAgICAgICAgICAgICAgICAgICAgICAgICAgICAg XQPcNNj6B6ucNSIzYNOwXR5dCXr1Gd4+CVhEBoRmWYH9ktQscU8TLG2bf1MvECufZYYyl4VwKYv7BG0S FHOzGCmkON5MIWfeto9CEIHjLHMpkSEMo9ybDuLwEMX3FVIhShyoYS2KRBBjS4aqofOiCRNlGVVVFSmx ONFPKS0PMsVrX0KlfJ96HKCTKb4+DQplbmRvYmoNCj E6MVUbf7ZhBOu0FZ7JTOLbPqvcn4RaYcnfOKWFPJrpAM8NDSS7QBD8PVMpMq8GBFRnE074mnDuKM5LWf 6MPsKwQA3spt6EOumiNDZiMujTKud0FLpoGX0ZsXUmUGlCOGKmYXRcOP8eFtydL6Eft0JyggCxFREWmt 4lJHVaQQHATzOxeGK7GoV7RlQxSmTpYJB1PnffFK5x BKywMA7RZDW5OUpqVUDuTYLyA2bHVzFgBCrzBDCmkBpdNJ5IZgZlE0VfkkCadTPpGfEhQAWVHf2+DQpl guUeUqkYNbE4ZVYkg1UbPOk4VS0MDWEoZGunJR8YQWHtwH9gBWjqBR1YHhJiKLTpRIYZYeEvL69krIKq QCm3G8TvPgWvCEJkMjgwRTWgPEanGtTdUUTaIsCmQZ ogID4+ID4+IAyjIU4GEOinkvXkMAPbNc6DCFJiYFKwTX5wCLQzHTTzS3D2aPqlPNWQGrSlE7tahvngLZ 6zLCGeU846pLttaoVuCIB0BBHpBo9NGNQjYGX1GEOujIQmNgIwHIIFYNlmXO6BaNLbXWK2sC0lUBbdUY EfPYEwT5wSUjNjzUntQY50eQwsvlLuoFQyEYf+Pg0K SX7go3PzCTg9seFtQYuvDTMuZAysPSJxGDPtLFSrEUC2SAV0HPTFLuWnPYSkJGYaAPvbUMLmDGVyyq7E TICmIJAdGDTjGjWhTHYhRRCsZWfnRHNyHRYpUDj3ZAKzGTRtWQ6JBtPhGXVePFYhHIwwLGDpUIWmgk9D MDAwMDAwMzMyOSAwMDAwMCBuDQowMDAwMDAzNTMzID AtNNGrMC5GJtYuPNKnLTR2NgooEHEsXEMgrv6AKFUaQTMsBFL6AVGeMCBbGIOjPUjpUIKvRQQ8ElX3GT KiHQXfDY2LXcUoEPUvOBQ7EOMqJCEqCUVupg3YPRLpAJDdTxZtToQzQZFdNDWsHXnaUKEjPYR0MHy1AW DsYFHqNS5WDeTnLMTdCExiAMXeNGBbWCXjdy5MGDSv QPRvGVZ4QtZoBCHdNBZiRKlmPIUgSSQ8QlJ6UXAkFFOvJA0BIePjZYWyCLh4QnmaSQUtGFCfoc0CYRCc XHZaFRzbUaOpYLLmUHMjNPlsTZUaTOKvSzs1SMTqESTpPP8WJpMrYZUgYTX9MTGdXHXeZHRscn3CUXUc TGYgKBX0KJXdHDZeELWaLEufEMFlFRV1JGM2YDVzJX LtJH9FHaPpSCPqJnNxHFfjFWChALBznm0AGCSrFLWzLXQ7LuIxLRBmDDFfBHzuDSTnAVIdAFYyPPOhEK ZrGD6MJpHiDFHzZySgARRbGRQbKCDwhm4SNOQeSAIyLNbkJVAzCKEnMVPiDKdfJRUcOGMmIWm0KTNkGY YlHZ3HYyBlYKVfAaYeGEdpWJAdVFKybq2SMAIbMMPf HjJ3ZpDeESQiCNBoSLj7hgYjnDAjEIq2BR3JK1QnzqKeQxITJt0En618BFB5UQMxBu5ER7plKi0fGXWt REZBNi5CBZz4AwGhNPL1CvO0ASxoVqV0FcTdNWi9JYWpC8HwYBPnEms+DSiyE6D4Mzp0EVPbEBFjYfvc AgEmAtVySEGrNLQxDVPsOZ3fIXKQKj9+KFwmfVXxhFlyIKNDMjPwFjNbOMaoITHFAc1I ID Date Data Source [id number] 03/26/2021 05:02:00 AM EDT [facility] Name Value Range Interpretation Code Description Data Arabella rce(s) Supporting Document(s) Blood Urea Nitrogen 5 mg/dl 7-18 Below low normal [facility] Creatinine 0.79 mg/dl 0.51-0.95 Normal (applies to non-numeric resul ts) [facility] N-Acetylcysteine (NAC) and Metamizole em ve the potential to falselydepress Creatinine results. Baseline values before medication adminstration are recommended. Patients undergoing treatment with phenindione will have falselydepressed results. Patients on phenindione therapy should be tested with an alternativeCREA method.Toxic levels of acetaminophen may lead to falsely depressed results forpatient samples. Glomerular Filtration Rate 81.00 mL/min/1.73m2 [facility] GFR Reference Ranges:Normal Function or Mild Renal [...] of Health and the National KidneyFoundation. The [place] method used in calculating this result is traceable to IDMS standards. Glucose 82 mg/dl 70-110 Normal (applies to non-numeric resul ts) [facility] Sulfasalazine has the potential to false ly depress Glucose results. Sulfapyridine has the potential to falsely elevate Glucose results. Baseline values before medication administration are recommended. Calcium 8.0 mg/dl 8.5-10.1 Below low normal [facility] Sodium 140 mEq/L 136-145 Normal (applies to non-numeric resul ts) [facility] Potassium 3.6 mEq/L 3.5-5.1 Normal (applies to non-numeric resul ts) [facility] Chloride 110.0 mEq/L 98.0-107.0 Above high normal [facility] Anion Gap 6.7 [facility] Carbon Dioxide 26.9 mMol/L 21.0-32.0 Normal (applies to non-numeric results) [facility] The above 10 analytes were performed by [facility] [id number], ,[place] [address] ID Date Data Source [id number] 03/26/2021 05:02:00 AM EDT [facility] Name Value Range Interpretation Code Description Data Arabella rce(s) Supporting Document(s) Magnesium 1.8 mg/dl 1.6-2.6 Normal (applies to non-numeric resul ts) [facility] The above 1 analytes were performed by [facility] [id number], ,[place] [address] ID Date Data Source [id number] 03/26/2021 04:45:00 AM EDT [facility] Name Value Range Interpretation Code Description Data Arabella rce(s) Supporting Document(s) WBC 4.62 x1000/ul 4.80-10.00 Below low normal [facility] RBC 3.66 x1Mil/ul 4.20-5.40 Below low normal [facility] Hemoglobin 9.4 g/dl 12.0-16.0 Below low normal [facility] Hematocrit 30.0 % 37.0-47.0 Below low normal [facility] MCV 82.0 fL 81.0-99.0 Normal (applies to non-numeric resul ts) [facility] MCH 25.7 pg 27.0-31.0 Below low normal [facility] MCHC 31.3 g/dl 32.2-37.0 Below low normal [facility] RDW 15.9 % 11.5-14.5 Above high normal [facility] Platelet Count 232 x1000/ul 130-400 Normal (applies to non-numeric results) [facility] MPV 10.8 fL 9.4-12.4 Normal (applies to non-numeric resul ts) [facility] Nucleated RBCs 0.00 % 0.00-0.20 Normal (applies to non-numeric r esults) [facility] Abs. Nucleated RBCs 0.00 x1000/ul 0.00-0.02 Normal (appl ies to non-numeric results) [facility] The above 12 analytes were performed by [facility] [id number], ,[place] [address] ID Date Data Source [id number] 03/26/2021 12:22:38 AM EDT [facility] Name Value Range Interpretation Code Description Data Arabella rce(s) Supporting Document(s) Nursing Note [facility] LEQJTj7aEeIHFoPn78/LWWtvGLHxx2BqMPaeSJj6WOzvVNWaS7LpYPB0hU4gVJP6VAmLXtIfFiZhLEV8 lbm [file] VhOmXfEV8XUm8UKmU1SEX0dPPvGf2WYjunZN4GBJBCF0JNPs== ID Date Data Source [id number] 03/26/2021 12:17:58 AM EDT [facility] Name Value Range Interpretation Code Description Data Arabella rce(s) Supporting Document(s) Care Plan [facility] OOQKOf7uEiJXLtOl37/ZMNpiYREvk9KfJHtgEHp2OFoxDAQaN3KlAOL9hD1nJZN2IHlZOaQlUuMlXUO4 lbm IsDxoOWcOxPIGfMgpWWdEgTVisNefhwYImBS2KsYN2MJWcI13kOYFhSVVcS7GqAWR9MUd+Nd7SZMWlxH WqEZ1FNgjJ2EvMs6j1PJ67lf2NjwIbiK8IGWZ06tP5hk2lRr+nm1qkoXTU18AMRpSCwi1gALT9r3lFHi u0lS0MCpF+F1X621KBXrk3bYdNGxEdl/J//VWnkvUm 8Hfc4PKHXXoPDt/ZYPJOrwQ4u4F/GiD8HmcrcVAZAqrlDqhvQ2isQenGki4eKrBXLkp4QcbCOX3fFr0p cA995FOEA5yh0O1y80MxwaCKEzbxWtcd//c/86G7o6mEfJSbv3mqQxPahkffpLpueOXozyfmqiowU7dr oto1bqgmg6xEQ+mlii45Rh/txo2U4Y/o6VCSUuORxf 8xcHMVX5xNgfOUt7c5CZqeMwktJQ9gOTNP+6zZYIJmV6qc0ZLYHCGvAAwLEi9tpIhSTyBuibsIAwYQfa ousoZ/Vs2Lu/1pSTs99qyTIkUecR4Eg9T/J+Jackson+rfWlmJS5BMkMBp7hZdZha0lawzBNmwf+Q+jMTtfFl hht8pZae92QLpljGof42OOVRjTMCQ7YmNL6/Ztf9Q9 2YkZSVL6nrpACtImk9mtOXBuTLzfvyBTZzTxVGsIt/O6JCFYzg0J6RKN3XzYC7xofRkDv9p/xmxQf6Mo 3m/V+DWPN+GIzSMqmrssbd4ManouIi67qddclOO4bdlkWz6Yq2eia6ECeJ/d5ZRQ+uXOr/K+Da59zG5Q 8uvv53k49TL/Qy2rgvz7papfDXqvmlMeObdnddp6SN [file] RpGLXmTTMvNbFiCqt1VwZ5UGJeBIEdWkWmTK8ZKu7SKaS4SUG8vSWyMl8BPNa5Vl5GVTULK4WLOk== ID Date Data Source [id number] 03/25/2021 07:13:18 PM EDT [facility] Name Value Range Interpretation Code Description Data Arabella rce(s) Supporting Document(s) [facility] [facility] OLBUVs5jRuDZFlPw64/GMCzhHWWcg9MiJMvvLNd7TCezCQZwD3XsMMF5wT5yFJJ0IHlDIwIjLrZmKAF9 lbm [file] machine pecan gatherer/VbYra/95IdKR7aiig9zkAIOcQBG0XPoOsi6r2qRtpyq/BvRC0+l1ox99ux2tTw6dm4sR/DPMscSF [file] XSANCj4+ALpbkZKhkQicCGWZTpVbUFR9BSiaEOGEJu2U ID Date Data Source [id number] 03/25/2021 07:12:23 PM EDT [facility] Name Value Range Interpretation Code Description Data Arabella rce(s) Supporting Document(s) Nursing Note [facility] QPZCJg9xIkNATnKh53/CQKnvQHMqk4JtLWwhYBk8IBxsVMRtK1UtEON1pZ1kOAH6PDxNPnHcFiQbVWN8 lbm QaYwyGQcLtHKSwFxhZBaRyEDvlQncrqHBgKS0VdTG0DENcB15uPNNnYDZnI0DaGDHmCgQ+Zn2NCKOhiW IjCG9QNjeA2GlesvE1JD1W4a/OX4lyqio5rA+EkLiUSkgUSqPzcjgPKdmGQG+kCQV+/dmNvUm+wZo27R ZB+2CM1IkBn/vGuyEKf1+y2zvzXIO/y6+uNPTxlB4+ tQO9oZo9qy2qYdKlbOqpHXGyF/2rQq/NwFqVz2HJ8sy12AuyALpUvL6pEosDSM49zl7v16h9Ah1B4LfO eu2khlJQj+B5Xmj7va70tCh4tlgfX/yJcsFAeQ6PwianMaByfxqmeD9E8ZWoqx5ZyHAzaMPYLIMEBaSe CcdLa1cU7hytVVzRzq4I04tINOca+zeEF3EI+jZEGO xMPEUnlYf1OvBQh4Zyd+9rSWpdEOJADWuXx9JRm5d1CvE61qIOSNgKdDhqdBUFMBytDNxI8hEpR0pidI UB0W9Aq4oQmGpSlMltn28MfqzuPmKI54Zxmgm9E9rH5KAONst13wiXsVSkGewUTp84Ii/5G2BkrDIu1x R5e3Oh7GGyNxIig4n4g2+/vuXW+dK9PAtPlcOBGuHf jCF9moUcy3eToAeXEub5u/NTzFtzvF1rpdBuP2DBdXK/aPD6/qVjill0Wbtf59GdhgJPVKxMvG59MIvC FtZct8tM2K0s/fJtnK8TSlkDf5YjYR6z51k71yGUnNFFs8a8m55J48twx+gvkd+OeY6IlOxju1BxWCox f2G/FF1v82D909KbKMwpv0x5Zt2fVebSJ8njZc/Clau [file] ybKDHDIs9K ID Date Data Source [id number] 03/25/2021 05:38:02 PM EDT [facility] Name Value Range Interpretation Code Description Data Arabella rce(s) Supporting Document(s) Progress Notes [facility] VVJDMg9vNcMEKrPt00/SWCfpYXRxi0VcPHegRMw7AWiaZJXhW8IkQWW1rP6iOKP7MKiSRnQeCzLvGJQ0 lbm [file] BJBzMiKU7FZMa= ID Date Data Source [id number] 03/25/2021 03:02:31 PM EDT [facility] Name Value Range Interpretation Code Description Data Arabella rce(s) Supporting Document(s) Anesthesia Postprocedure Evaluation [facility] AGCBFw6sPzFVTpYw51/BJBikMQNvp7NgLMqyRUb2GQllJFSgL0ZvKYB8sT6yXWO5CNaUDnMmNnHsGPC9 lbm [file] MDAyMzQxMCAwMDAwMCBuDQowMDAwMDIzNTgxIDAwMD ZwDT8TMeBtBHtxKZBTQoy5JVegS0x8QUIiPP0DB4Ibb9DdUpnwDRTKAInvXJ5aidHyZZEsNg8IT7rYXw jfY6ZxRTB3XRqhAQO9KWCeTZJpWSB1BmS8HhExBiOqKy3tHFKxW1F3XNp5UZC1Acm5QvCyRnPjJISfUC m1BzAgM4MlOyYaTL8XXk7CCiA4PNO3cFZqBv9PUnN9AmZOOfPyWQ4BGWf= ID Date Data Source [id number] 03/25/2021 10:57:36 AM EDT [facility] Name Value Range Interpretation Code Description Data Arabella rce(s) Supporting Document(s) Nursing Note [facility] VXJLNe3jEyWCNcMo04/UKKsuUVGvx2YaUYykBQx9ZVaxFHPqM7CuGQH1hN5lTEH0AQwKJzMeKeAkGPA8 lbm [file] AsUxtpWVGnAkWlDEA4ZJL+LD1rHOz+Hm5Mj7CdutP2yvMrUFwaGEarJy4HIRNSU6HYPt== ID Date Data Source [id number] 03/25/2021 10:48:41 AM EDT [facility] Name Value Range Interpretation Code Description Data Arabella rce(s) Supporting Document(s) Nursing Note [facility] SBAJWb5vRfITNsQs68/LKIkvYGIre9TgOUnbFUh9VEfzMZPzE6ImQUJ6oO4aGOT5QFwMFaVmFwVtGFS4 lbm [file] 5VXvH5SYC0jTGkPn0FRxR4KMVTEpUyOP8AJPg= ID Date Data Source [id number] 03/25/2021 10:42:08 AM EDT [facility] Name Value Range Interpretation Code Description Data Arabella rce(s) Supporting Document(s) Procedures [facility] RZOTEm8rKfSTGyKg42/NEWzoEEVdh8DcDCznVCr9UPhaLDNeN1PeCAX5pI1eLIQ5AKoTWxQnIcWwGER7 lbm [file] ICAgICAgICAgICAgICAgICAgICAgICAgICAgICAgICAgICAgICAgICAgICAgICAgICAgICAgICAgICAg ICAgICAgICAgICAgICAgICANCiAgICAgICAgICAgICAgICAgICAgICAgICAgICAgICAgICAgICAgICAg ICAgICAgICAgICAgICAgICAgICAgICAgICAgICAgIC AgICAgICAgICAgICAgICAgICAgICAgICAgICANCiAgICAgICAgICAgICAgICAgICAgICAgICAgICAgIC AgICAgICAgICAgICAgICAgICAgICAgICAgICAgICAgICAgICAgICAgICAgICAgICAgICAgICAgICAgIC AgICAgICAgICANCiAgICAgICAgICAgICAgICAgICAg ICAgICAgICAgICAgICAgICAgICAgICAgICAgICAgICAgICAgICAgICAgICAgICAgICAgICAgICAgICAg ICAgICAgICAgICAgICAgICAgICANCiAgICAgICAgICAgICAgICAgICAgICAgICAgICAgICAgICAgICAg ICAgICAgICAgICAgICAgICAgICAgICAgICAgICAgIC AgICAgICAgICAgICAgICAgICAgICAgICAgICAgICANCiAgICAgICAgICAgICAgICAgICAgICAgICAgIC AgICAgICAgICAgICAgICAgICAgICAgICAgICAgICAgICAgICAgICAgICAgICAgICAgICAgICAgICAgIC AgICAgICAgICAgICANCiAgICAgICAgICAgICAgICAg ICAgICAgICAgICAgICAgICAgICAgICAgICAgICAgICAgICAgICAgICAgICAgICAgICAgICAgICAgICAg ICAgICAgICAgICAgICAgICAgICAgICANCiAgICAgICAgICAgICAgICAgICAgICAgICAgICAgICAgICAg ICAgICAgICAgICAgICAgICAgICAgICAgICAgICAgIC AgICAgICAgICAgICAgICAgICAgICAgICAgICAgICAgICANCiAgICAgICAgICAgICAgICAgICAgICAgIC AgICAgICAgICAgICAgICAgICAgICAgICAgICAgICAgICAgICAgICAgICAgICAgICAgICAgICAgICAgIC AgICAgICAgICAgICAgICANCiAgICAgICAgICAgICAg ICAgICAgICAgICAgICAgICAgICAgICAgICAgICAgICAgICAgICAgICAgICAgICAgICAgICAgICAgICAg ICAgICAgICAgICAgICAgICAgICAgICAgICANCjw/iNBiU4tuoJQaawX4I4guHl0BSd0KEJ7gr8EdCTSv FRdmdaNwBjqFJvGaSITqBniUQyp3NBogAL0ZnQGcB2 WzM0WxJLcsHI6TBLOrTYFflEErGGTtRXMhOsZ9WBCbMBlhUL1HfDFuHNovTEPdDSZkKdCbZPWnXC5XLP BfX743wmVvIj3CUq9GGhRmIC0zck9CXzZcLROvUglOBwr2HLmsQT0AzPOnyIPbPWPaRCKDRlLrX9mzj3 ReUgWlVKWINCohQA7Dl0DtlYBpBKr+Ty4BSF0th7Ar SCjbPNCjYZ9ooc7IRCpPFcEsP4LqnLfyAUEzw5PaIVFhKJAjm5hhroWbOMM4POFbDWVzAZbvC2ldMVTq FG6QCRK5KMckNLyrMuZlPQQdLZz1VwLJLXtWDvXpM3Lxf6RbTfL5OBUdAyRgVRvzAEDyVaB6BW48bVnj UO6DOQIjLEGjYP20WGD0XKRgMi5TIn2VOnJrER7zlt 4ICbSxXSXgHjjHKub7UCccNI0TaGWcQ5ZaoFOpa8jDWkXnO1SSHZHwIVTsBb0BWRQvYbUsAFMePXcjJC 8dLBWsGHMOpEfbrpJ7HC8NIY5sxaNiIN1AIqPxPv1sFq8GSiGyC2UuI3SnLETcDLQGWWunJB5IORqjLS 2mZG4Zs3YGlENvcK8zqc7ZHVRuTUBhRiuvyp4HVqkf J8H9eJvpHUYoEhOaFZZWGJexEH3QOFIpFFQ1WCDhXaClCAUBEcXmX15kHA7EZ4Cxh45kWwC8HPIzXyDc JMpqBG39mTsmqfQjlNXclDxcEP3PSh5+DQplbmRvYmoNCnhyZWYNCjAgMjcNCjAwMDAwMDAwMDAgNjU1 NoBjFo5EXXJlVZLxKLBkLoBlLIOoVXMgVPnlQANlWT MfTUWpUTVlVWBgNW1SNtOqYNQfWzM9TCEoOZPcEYAulc3QHPMrMFCxZZB7GyFnMFOcEXIgPAgcFACuCU YcZMdfCWYqXDDiDA0GZsAqVKOcCMByHRObBYZoWZUzer0EJMRrGGMsBpI2VwNfPNBjVPDxKUrfKKSsEU TlRVDaCIKdYGImZF2WPbGySSTmJWZ9JKpjRBFrQZEy od2JLZUqSGGeMOWtWGHsWSEbKFYpFSnpBYAyDBR3JJv7VNUvAFVpMZ7QKnEbFUIbLLEtFNYyJPQcEYCr di8EDAPbXDEaNyA3CjLcMCKbRJKrZCkpAOJeWBE7LFZ5HHPcVZXlCG0GFbAhWSRbTTh2ZWIhMXVfKAYk vi1KLDErYTJkPDRdJLJeALWhCTVgXIbxXMIjZBR3GW J9YPRlCGUcKW1EXiAiOLCdAXy4AXgkKZIdURXffm8HLXQoMZEdKQp8IAHbVXLpADBlSShnZTGwUZGzVa S8DQLcRIQbOL2UYmDjGUIyTiU5YtHvPSIaRGJgjj0QPNLpDMEjNGC7WEQjWFTxZQGyMDnzHZWsOHCsJM A7XEDlWIYgHZ5YIkUcCJSeHxE7PKnxVFKkZBPlgt3U ZINtYBIpJzVlIANrXUZzVSPqIEcgZMMuNLWgRSicOEMbOWYlHI4GPcYhMDgcPMZTVzz6EZiwF0s7AHNx St2WJ2Pri9FaTyEzBMJXSFwoME2tmdLcJUCrUa3WL8tHGjudDcFsZGSkRBD6VmK0M5Q4UcJuFKTxDZC0 JzMtFncySk9jFBYiLXS4GpCkYWkzTsphCzf2NZU6RX TjPsB9Q4ZpVBLaAmHzLN7FJs3HEjO0CEI7uOTcRh5EWdY7XoVJDrQtQF6RAEa= ID Date Data Source [id number] 03/25/2021 10:11:38 AM EDT [facility] Name Value Range Interpretation Code Description Data Arabella rce(s) Supporting Document(s) Anesthesia Preprocedure Evaluation [facility] RTZUSp1gBhLPFcKx22/XCPrmMLKel8LeEWdqXVn9HPlvBWBwD0NdAMY4oE5dSAD7OOuUWcJcUpJlBKU8 lbm [file] WzqWkyqWcn0cgVFtTqhukg+O949kuM/c+yI0+unK00xSyBgZWoeJ3Mwa00f4AngZUlBTgJlc3npc/Rocío Gbub6jW/89ZmOIZ8v/CYpKeYU0PI8k4mS5/qPg+f5H 8fIEJxX8nqEaXjwTMoCY8wQ2ZOqP+lTRSKxYAkQiymoyWP8R+iydLR758TRhnYUwFzXKQwulj5fUaQKn hbW/rogelio+C61/Q2bnnDsnvE3LJqZwNzOVnctXoU5eaARdHkVVNoFGnHmxdpPA9oa3EFsMzws8pZTgS7zd [file] AhPY8RSe8QDcU9FCD2cQRgIx7MJqOeKqpOLjYxQP5WXOg= ID Date Data Source [id number] 03/25/2021 09:23:31 AM EDT [facility] Name Value Range Interpretation Code Description Data Arabella rce(s) Supporting Document(s) Perioperative Nursing Note [facility] GSQEGd1oWxZYMhCw00/VLTqbSJYqq4ZnTOmfHTs4SYqiDWEpW2FaAFQ9sB3zQQI9RFvRVlNxSlDjYRI4 lbm IuCmgORpJjRKTvIdlSHwOtFVnrVdkenFTmZE6JfBN0FRNfK32gVYMoGJVoZ5LcWGslSX7+KPmmIDK7vy BewT2HWXSSJEek35JBuIkrO+uQHd1jd1x3KaYwCoYDjRkkP1cLNxndtAeA2tBv86R1ockeDEehoyUmI9 s0s+pOssg3XoY/A5gHDFffAt4Zl9aFkmkGrfbFqFNd bjr3NhgbRRXCsO8Dijo62FCoTykAVU/2rBAYbExSOmxWTEDCjdON0WjM+sHPHEP2XoJXXT2hIalyalPM 9MJxJ0Y3xh72GT+zgJi89PWP6o/IfbKRwwEIttjrbD1LOifwAvbWkQAxXVPLbmturxMFbNfQHgfeia5v 1iMW7T5iFnojpRXY7SFOGuBrOf5efXtdxlPCiNf9k2 XDEbyw29F2y8OcF7ggkXmd3bNwMNmVaE2AZuwM8habBCto/dFUo+kAlByVymcrUMlQdLTcVyiUDJruQS zCy+Vo2faUWI01LbP3UcKWAlXXe66Yi45Xt0ymORkOiPueKlFTuxYlm8AT8di6+P0CtEYyXPhluu+t6H CcrLZpNHzauEKpdcN7/euky71CjaQSu6s2tCoUfRJZ lMrfeXK2zNO4zkdARx2w+yeltWbi0lICh8+HH07wVYaX3mA96ylmhNRugqDTCtgZZO6bYR9Y43X0JL0e UWc9Op4Ju283EsDwlhaGlxvPPO5d8uGU+e5Tqp78s8A+3J0MWHL57e/aGSbaLTS5H3lsOP/Jpfpd/roll picker [file] 9GDQo= ID Date Data Source [id number] 03/25/2021 07:03:25 AM EDT [facility] Name Value Range Interpretation Code Description Data Arabella rce(s) Supporting Document(s) Nursing Note [facility] AKHVFf5dLvSZNnMc02/SMAhnSBFso9AyGCioRIx0CAvuRJHvZ5GgRUM3yP3kEGE9VBpOXhQlTcJtCRR3 lbm [file] machine pecan gatherer/VbYra/02LfGJ1otzs5oqSTFfTVF7WBbTje0b0nAhwiy/BvRC0+r1te69pr1rCk6ld0yN/DPMscSF [file] 0K ID Date Data Source [id number] 03/25/2021 05:44:00 AM EDT [facility] Name Value Range Interpretation Code Description Data Arabella rce(s) Supporting Document(s) Blood Urea Nitrogen 6 mg/dl 7-18 Below low normal [facility] Creatinine 0.72 mg/dl 0.51-0.95 Normal (applies to non-numeric resul ts) [facility] N-Acetylcysteine (NAC) and Metamizole em ve the potential to falselydepress Creatinine results. Baseline values before medication adminstration are recommended. Patients undergoing treatment with phenindione will have falselydepressed results. Patients on phenindione therapy should be tested with an alternativeCREA method.Toxic levels of acetaminophen may lead to falsely depressed results forpatient samples. Glomerular Filtration Rate >90.00 mL/min/1.73m2 [facility] GFR Reference Ranges:Normal Function or Mild Renal [...] of Health and the National KidneyFoundation. The [place] method used in calculating this result is traceable to IDMS standards. Glucose 92 mg/dl 70-110 Normal (applies to non-numeric resul ts) [facility] Sulfasalazine has the potential to false ly depress Glucose results. Sulfapyridine has the potential to falsely elevate Glucose results. Baseline values before medication administration are recommended. Calcium 7.8 mg/dl 8.5-10.1 Below low normal [facility] Sodium 140 mEq/L 136-145 Normal (applies to non-numeric resul ts) [facility] Potassium 3.4 mEq/L 3.5-5.1 Below low normal [facility] Chloride 110.0 mEq/L 98.0-107.0 Above high normal [facility] Anion Gap 8.7 [facility] Carbon Dioxide 24.7 mMol/L 21.0-32.0 Normal (applies to non-numeric results) [facility] The above 10 analytes were performed by [facility] [id number], ,[place] [address] ID Date Data Source [id number] 03/25/2021 04:56:00 AM EDT [facility] Name Value Range Interpretation Code Description Data Arabella rce(s) Supporting Document(s) WBC 4.87 x1000/ul 4.80-10.00 Normal (applies to non-numeric re sults) [facility] RBC 3.54 x1Mil/ul 4.20-5.40 Below low normal [facility] Hemoglobin 9.0 g/dl 12.0-16.0 Below low normal [facility] Hematocrit 30.0 % 37.0-47.0 Below low normal [facility] MCV 84.7 fL 81.0-99.0 Normal (applies to non-numeric resul ts) [facility] MCH 25.4 pg 27.0-31.0 Below low normal [facility] MCHC 30.0 g/dl 32.2-37.0 Below low normal [facility] RDW 15.9 % 11.5-14.5 Above high normal [facility] Platelet Count 201 x1000/ul 130-400 Normal (applies to non-numeric results) [facility] MPV 11.1 fL 9.4-12.4 Normal (applies to non-numeric resul ts) [facility] Neutrophils 50.5 % 40.0-74.0 Normal (applies to non-numeric resu lts) [facility] Lymphocytes 35.7 % 19.0-48.0 Normal (applies to non-numeric resu lts) [facility] Monocytes 10.7 % 3.4-9.0 Above high normal [facility] Eosinophils 2.1 % 0.0-7.0 Normal (applies to non-numeric resu lts) [facility] Basophils 0.8 % 0.0-2.0 Normal (applies to non-numeric resul ts) [facility] Immature Granulocytes 0.2 % 0.0-0.5 Normal (applies to non-nu meric results) [facility] Nucleated RBCs 0.00 % 0.00-0.20 Normal (applies to non-numeric r esults) [facility] Abs. Neutrophils 2.46 x1000/ul 1.92-8.31 Normal (applies to non-numeric results) [facility] Abs. Lymphocyte 1.74 x1000/ul 1.20-3.70 Normal (applies to non-n umeric results) [facility] Abs. Monocytes 0.52 x1000/ul 0.14-0.97 Normal (applies to non-nu meric results) [facility] Abs. Eosinophils 0.10 x1000/ul 0.00-0.76 Normal (applie s to non-numeric results) [facility] Abs. Basophils 0.04 x1000/ul 0.00-0.22 Normal (applies to non-n umeric results) [facility] Abs. Immature Gran. 0.01 x1000/ul 0.00-0.02 Normal (appl ies to non-numeric results) [facility] Abs. Nucleated RBCs 0.00 x1000/ul 0.00-0.02 Normal (appl ies to non-numeric results) [facility] The above 24 analytes were performed by [facility] [id number], ,[place] [address] ID Date Data Source [id number] 03/25/2021 03:48:12 AM EDT [facility] Name Value Range Interpretation Code Description Data Arabella rce(s) Supporting Document(s) Care Plan [facility] XZQUVu4hMmIIQkQq28/LLTzdLMClg5GpJCtbGWm0OEajUPQkN9MpGOW0yO5tUMB4LQhORjKzBpGbACF9 [facility] [file] LcAVAcEAK7HQMeSLR7RfBqHaXjYJDkOqF2Lm1xPA ANCj4+KLepkHCtrVvnQQJCUmW4XzInSNyrZOSRPv2K ID Date Data Source [id number] 03/24/2021 06:47:36 PM EDT [facility] Name Value Range Interpretation Code Description Data Arabella rce(s) Supporting Document(s) Progress Notes [facility] LTYVSf6rBzMZVzSk15/JDSbjIABez7EgXBjrNTw1TRrgWTDmP7JxFAG6uD2oVIO0YVuQPfPjQaCdIJX3 lbm [file] sC9CjiJxMNDZu0vsx+IOxXfu/ZapOC0pw37y/O [file] == ID Date Data Source [id number] 03/24/2021 06:29:29 PM EDT [facility] Name Value Range Interpretation Code Description Data Arabella rce(s) Supporting Document(s) Nursing Note [facility] YNVLHm2wEhGPWjXj40/ZOAzmXCBgg7VeEPtvTYk6GZvfAOKiA8KcXSU6hJ9aOZH4SHvLIsAaPxQoCTX7 lbm [file] P7YBV5SPBjRJIkZuAgCE7MIh0RLiG1FCD8cQWxNq9HNlSoZTZVWjJeWM4HDXc= ID Date Data Source [id number] 03/24/2021 04:19:00 PM EDT [facility] Patient: SIENNA FOSTER Observation Re [facility] - Physicians/Mid Levels [facility].VisitID: [id number] [place] [address] [phone], FRegistration Date/Time: 03/22/2021 13:25 Weight:72.1 kg (S). [...] Allergies:Amitriptyline.(hives) (suicidal thoughts)Bees.(Anaphylaxis)Maxalt.(Anaphylaxis) (coma)Seasonal. (Electronically signed by Oskar Sims, P.AJinny 03/23/2021 18:51) Name Value Range Interpretation Code Description Data Arabella rce(s) Supporting Document(s) ID Date Data Source [id number] 03/24/2021 04:11:33 PM EDT [facility] Name Value Range Interpretation Code Description Data Arabella rce(s) Supporting Document(s) Progress Notes [facility] DUYPPc7mWhXITlLq94/HCQulXNOpq9CbZGkqAHo8JCzpUHYfT9UuTKS3kS8xKJE3DIhLCrHoAnRgHCJ1 [facility] [file] KsRmYB0HHNv= ID Date Data Source [id number] 03/24/2021 02:38:34 PM EDT [facility] Name Value Range Interpretation Code Description Data Arabella rce(s) Supporting Document(s) Progress Notes [facility] KVHKRd2fPrZULtUv15/EJPnoRAVyh4SnNAzcZQz3GSatRMTgE5DpXMH6fR5nLVZ1RDiJYuDjIyUsYSW1 lbm [file] CqiS9GQ6GETIiKRVVBRi8ZBVSyX16KHPHO+2MxJY04 MVX8IA2L+hZdbUaJQaViHByzRBU2eS+0fJ7GwaDMsOnUEuvwvQnfS+yHWwJFHbRSV+UqW+aeBT4A/oP6 tjCYE07BhqF9/o/fSZ7UGZN6b2p/rIE2NXanELnQ5RrbO5n/IP2epSz86zUfYqwKeQCR7xE80lT8TJtD reVPP5Nu2aURRMzxI/uceBrtOgT/g7L5TV00BYOr9x pWwzawv+sI+W7b8o+YYq3jjv+PzbcOlY3d46fAJ8P54Qp+wZsuf81R05llyV7B0IGOWyRerxfJ/xLUec /8Xq4Kk9TcKFOmWjKk4pKVijZJ7r5adUt0NnqZqKZ0Z7/Vri5aEn17H3s+tsF3fX2MZFnlrGh9FUgVlT OA8kTuwuNT7qIvoKgZ1sIHu93Vn71gse+kPgUcwXpp vXkIB3ujItPtp450oc8yCRU8Lv4ZFCOfFyQX46VV0n16wp+h+2Aw62GgMl3z9nwmpjInJ0AcMVS8zeH6 j+z+6qidAr/L0Kc8ZBZgk3Fk9BkyhY8R3zEjkLL+GZqI4Uf+M+WeTvwZ3sGylhxrvAF6zR8CehqDF0tU qxncw+keYKHLRSmuluJvqMxVkyhfnDHafxtLnDuuQ9 4qio11K6/Ph+/vKaMujPy0x3W7sMTaoXFwCKk2ZPbrPT2nA/99kIZnZ+H4QqFCFFTNA03y55DEKpL9BW giMsidHqmVp1GvkDigBjOHDmPeNNTk2QB5ePy4y+o2Cl1hwkA4Nm2dOzTy2JIRoofNpTkz1Ae00cgOWR yqJov70QHJTM1t8NthK2ncw/n0zNmoZW300RHSZI96 XaXGnMjSx5zGgoczWFG3hQlkN+q6X3FW8cwV+mLvXCco8nt6sAZM4JGEJ/C9/hIaLFWSLv+z3lmf8OHS uh4Z912l7vemNoox+KtfWBTKYOa2s7T8ni3mwn+lDrD/xkjNzI/0Y2ZQDrTdzrkXU8o57utEnGcKpPnB gdZsBgd8EwZ26Mkv4JqCD42nbjTjd9s18+JdnrYH+7 iZTU3bIkbUmf7nADKBBtu2J7z3kQ/4ByAt/y2bH+ZcQZ92nD043uU40CRVjS/mH39EevGstczF65oC58 9SNsGua0IyqWbRd50Xg5r+E2lomnrktbl6iL9fgWG6oSsDfJqdQwwcOuMRiCKl2w//xhsXU8Gl51Ptk/ +ma47Dwto7TMHhq+5cexKXrhR0CPGjoCxBQlpsh2/v BIm//7SMNUe4AcOo1YKK5B7vC58LLiY8dzH3YX0KUenRCyQcUv5Sg6cSTb7igTkrUU6FGqQw8qB/A/evp operations Pfcy54Z/RT16kWlUkYyfjWiGHsj9uPSEBxA9E97/XUqodC5XrmELGD2PJ8udU3QryZJ8p401j7bJk3rE XxnWuhx+l9G9ybjWfiQco797t7QFE9pRcD8Xo0KRY1 wlYcMSXJCvHY70zBPA4abjoZ5tZzlFowkQ84niYgXlzGHLW8H/uy0K+1gAXRydeO09TqW/IZdXPfd4It PfIbGze51mh3f17Mk2bn7NQ5ioUKNXpn5wxVbksk52U7aqCf/rA3ykO2zHuvMhcNqmVIQ3sBDRoRsZHO 7hGneWxsMUoAre05/sKNqS9z1Cz9JW17tOsfI9EExV eCz8u7gAsWm6pT/vFvfSXcQeWa2RwDFvlsfQuc9cHRZaq8gPvkJpB2e8rcV6HAkujAqGCYcqtMs5cP1V B2ncc4rU0Wyf92VTDXeXRi8gSWst0d1iMnUrBb2thvl4rmlhoRcLfdr5LB6bzKg5cJOB56u4XSolDb2k IunyGLcNTYBob3zaGaNUOP/MqfMqMqXfrSqpx6XRff 9DxnsCRkw+wpPcVshgg/ILGTXmF+oQzQZzYfzJUn7Zs7bEcS2fs3R67pUnoRxEdzZGlmfAjPCwRLP/YV WIOzV4xKaQQFt9iOiIPUB1WhKmeDHE6KjVWwiZsm+bwmF5xt1KZqzYPCvOKIeFons8D/a8kHSiGR3TE7 yPVlL4HMNCxop+YYVVjaIGJA+GIZQMIsASGhOTQV30 [file] ICAgICAgICAgICAgICAgICAgICAgICAgICAgICAgICAgICAgICAgICAgICAgICAgICAgICAgICAgICAg ICAgICAgICAgICAgICAgICANCiAgICAgICAgICAgICAgICAgICAgICAgICAgICAgICAgICAgICAgICAg ICAgICAgICAgICAgICAgICAgICAgICAgICAgICAgIC AgICAgICAgICAgICAgICAgICAgICAgICAgICANCiAgICAgICAgICAgICAgICAgICAgICAgICAgICAgIC AgICAgICAgICAgICAgICAgICAgICAgICAgICAgICAgICAgICAgICAgICAgICAgICAgICAgICAgICAgIC AgICAgICAgICANCiAgICAgICAgICAgICAgICAgICAg ICAgICAgICAgICAgICAgICAgICAgICAgICAgICAgICAgICAgICAgICAgICAgICAgICAgICAgICAgICAg ICAgICAgICAgICAgICAgICAgICANCiAgICAgICAgICAgICAgICAgICAgICAgICAgICAgICAgICAgICAg ICAgICAgICAgICAgICAgICAgICAgICAgICAgICAgIC AgICAgICAgICAgICAgICAgICAgICAgICAgICAgICANCiAgICAgICAgICAgICAgICAgICAgICAgICAgIC AgICAgICAgICAgICAgICAgICAgICAgICAgICAgICAgICAgICAgICAgICAgICAgICAgICAgICAgICAgIC AgICAgICAgICAgICANCiAgICAgICAgICAgICAgICAg ICAgICAgICAgICAgICAgICAgICAgICAgICAgICAgICAgICAgICAgICAgICAgICAgICAgICAgICAgICAg ICAgICAgICAgICAgICAgICAgICAgICANCiAgICAgICAgICAgICAgICAgICAgICAgICAgICAgICAgICAg ICAgICAgICAgICAgICAgICAgICAgICAgICAgICAgIC AgICAgICAgICAgICAgICAgICAgICAgICAgICAgICAgICANCiAgICAgICAgICAgICAgICAgICAgICAgIC AgICAgICAgICAgICAgICAgICAgICAgICAgICAgICAgICAgICAgICAgICAgICAgICAgICAgICAgICAgIC AgICAgICAgICAgICAgICANCiAgICAgICAgICAgICAg ICAgICAgICAgICAgICAgICAgICAgICAgICAgICAgICAgICAgICAgICAgICAgICAgICAgICAgICAgICAg ICAgICAgICAgICAgICAgICAgICAgICAgICANCjw/dLQlD4wmiQOwboY7Z0ywGd0JMo4DIQ2cm6BuAADc FBcauxPhDuxMCkBoECBjTdqGCqw7OYwyPJ4QsJAfQ2 QgB6EsQVuiBP6UYCInKSRewKBiLRNgZRCqQyK8QIUqQRgnMB2VgZGiXGfoSCRpHBDiTlNdDYZnLTVkUH ZzSEJnAOMPRB8QHiFoQ6OoaQ65WHKNBg0+LPthfaKbUieAAiF3ARAmd2LtCTx6OE1PAUSyAumdt9EuEZ IgCENRRImcJC6XKON9WNL1EZRrBd1PAHVzJ711ziQe AI7UBe1SZwJbYI2ido2MNHErMKDkRbaLGtv6KDvuBT7AbNLxUDpUtz0pduEfbsJIb9VwkdCywILNzfzw PZ5tY9NtvAr9ICRKTVSWZG3hDQQvWQ7mCa0eFQOyKAHoMtE1WGSODB9BOFUjETMigWLqYMErLJDZKT3T UYgdFZD3YobkouFyxOHiLFehOA4TNWGixzCeNNHiJR BSDQo+Iv9XGL9ro6QxAYg1JqZuFQ8yhq7HEKxOVwJrT3M3tXVpG8A1JRfyRr4VKJZrOASaMLYuYYAEVH coFS4NUU6xvqA4LT5TeVYjMFWkDHRjnTEzQJx9Y69pqXKuYIseXW3SLOU+Mau+Fw1JBWOpJYSpFZMcQi UxJGUVDqZsB6PkG6OAs4SyS2PqQO84rGxtscCpVHce MH3VUP3jBWCeWVKOMS2YoBMwdO8bfdT6AUYmXSQKUaLqX67tzDAkSLYxUSIjDNTcQr0CVRCsC0AcbtCu tDagjpEbWWYxGQEOWJ2UFQvzmvCsdFCsxCxlPM28pOdqEL4VHw6HNnLaDV3myh0ZoKLmKi7OUDD9Si7N HBLoTMKeYIKrSZP4RSUcKjDcIHfeNLLbOVJwJCI2LF HsJWLoPO5PKaGnPJVsWHh5TPZkNXAkGTKcyj3WCYFqEZI1UNK5MUZtOVBjREDhGKphNYMuBZDdJCF7ZT HfVCFpCB4IOxBcGBRqMNB5AUnvWVWsHWXhqg5EXNPqKJBdPhFqUeHsYQCsCYAxUHvvGUGsQOV0GeP9SX NuGYRmPY7FBuJsSHDhPHG9PnqwYEPaHPGjuw6GPBHx TDKiGRYqRUSgGBJoASOnRFkxERZuMEC1NrF5TENaIUZoFA5ENoHdKCDiTZa8PlVyFQPeTJGqpf6BYXId RXFnTDvmKHTwKGUkCCSsCSiyBPNqLBIuMZm9WNQvATFoAC8NPmIkHLLdNJJgDKdaRVCzBFMuha0SBJFp DEDeBDU5JyAsNULyZJVwIKvxQDHkOYRcCrJ7DEJiBP HhDF9WUuTjVLVpDUE0MkKcZXSkXUNjlq8WYCUyPPZhNtMcRxCcZGWfMSDbMTqmDTUsIPE8WLB0MZQtPL NgXW9QFbMjYRWlOiCyGNNxVCLiYZCjlq0PIBLgUHMqDQD4XNKtAOQlOFMfOKbpFDNvNBQ4XpMvSJQvPS QvPH6TUmLbRFLmXnX0NqtlYOGgUMHxjq4ABOXjBHUk SejnTOLwOJFjXGYlWAepIKArASJ8QZSnTNKzYOIoBO8YMkAxBORxKlqtLAnsKRQcFXGess0BFKSbWQOu WZUyISPwNWYdGPAtWAmrIEHpMSZ8FtF3UZFsGEJmVA1XAgAzECBcRzl9MPfuHQHqHBLzkm3FZGXyDIA9 XOwrGWUuOQUcYUYnVCleEHQpVCCsNIP8YDOeUQJwXP 0FJtDzGQGqAGStIOHnYIKbHBWpab1VHLFjOIB4ThJ1TMPhLVPhMWXmEEsnMOLyTNYbLwZbFGGdFIYkLS 2HJaCfSRDpWAR3BgWrMZZbTUClky5DGRJbPKY1Zcd4VoPyBDNzVNObRDetVPWwDHH1ZMX3ZKRbLYPxWB 2XBwBhEXTsVYd0MGIjAMPcHQPbji1EMROtBJN9FVQt EBFuEOPmUFCzFUihEDPzBLX6PFVbGKSwMXPuQZ4ENwLqKYXaHWh2SeGwVAWzVKUlfe7NNTNqKPP3ZSss OBZiQGSeNQGqTBgsAXRwIMUwKcPdAFSaHFTnTC9JYeVlYAIzHXE9HCelBONyQTUfeo3XMWYmPVA3AJyh GTThNQIdVMEuTWtaXFZkHSAsYEybOMOvBSQzPX9DLj PqELshTSPOAvl4KRjnR8i7XLY7Oo9JS4Lsu3XwCKIyPGAIZDrwPM9owmGsPUUsGd9MY9oJCoeaFjPwGT G4DKYtGTN4SwKwGWC6QLL6Z5SrCQUsTqC5Tc8mVYD3DdV6NuRtMSE7QkliCOD3DIObUvlxPPD1SLLvLP FqVoWuOF4XYe2LFiQ2VGR7kQWaZp4FMBHrSkRXRyQuBP7LTZh= ID Date Data Source [id number] 03/24/2021 02:35:53 PM EDT [facility] Name Value Range Interpretation Code Description Data Arabella rce(s) Supporting Document(s) Consults [facility] YRVEXa1mXaINMiMf63/KHRmvJWKaf7VnEWvePCk6DKacXBSnW9VrXTT7fL2cZTS4CSbSGlSyZcMzIGZ6 lbm [file] AgICAgICAgICAgICAgICAgICAgICAgICAgICAgICAg ICAgICAgICAgICAgICAgICAgICAgICAgICAgICAgICAgICAgICAgICAgICAgICAgICAgICAgICAgICAg ICAgICAgICANCiAgICAgICAgICAgICAgICAgICAgICAgICAgICAgICAgICAgICAgICAgICAgICAgICAg ICAgICAgICAgICAgICAgICAgICAgICAgICAgICAgIC AgICAgICAgICAgICAgICAgICANCiAgICAgICAgICAgICAgICAgICAgICAgICAgICAgICAgICAgICAgIC AgICAgICAgICAgICAgICAgICAgICAgICAgICAgICAgICAgICAgICAgICAgICAgICAgICAgICAgICAgIC ANCiAgICAgICAgICAgICAgICAgICAgICAgICAgICAg ICAgICAgICAgICAgICAgICAgICAgICAgICAgICAgICAgICAgICAgICAgICAgICAgICAgICAgICAgICAg ICAgICAgICAgICANCiAgICAgICAgICAgICAgICAgICAgICAgICAgICAgICAgICAgICAgICAgICAgICAg ICAgICAgICAgICAgICAgICAgICAgICAgICAgICAgIC AgICAgICAgICAgICAgICAgICAgICANCiAgICAgICAgICAgICAgICAgICAgICAgICAgICAgICAgICAgIC AgICAgICAgICAgICAgICAgICAgICAgICAgICAgICAgICAgICAgICAgICAgICAgICAgICAgICAgICAgIC AgICANCiAgICAgICAgICAgICAgICAgICAgICAgICAg ICAgICAgICAgICAgICAgICAgICAgICAgICAgICAgICAgICAgICAgICAgICAgICAgICAgICAgICAgICAg ICAgICAgICAgICAgICANCiAgICAgICAgICAgICAgICAgICAgICAgICAgICAgICAgICAgICAgICAgICAg ICAgICAgICAgICAgICAgICAgICAgICAgICAgICAgIC AgICAgICAgICAgICAgICAgICAgICAgICANCiAgICAgICAgICAgICAgICAgICAgICAgICAgICAgICAgIC AgICAgICAgICAgICAgICAgICAgICAgICAgICAgICAgICAgICAgICAgICAgICAgICAgICAgICAgICAgIC AgICAgICANCiAgICAgICAgICAgICAgICAgICAgICAg ICAgICAgICAgICAgICAgICAgICAgICAgICAgICAgICAgICAgICAgICAgICAgICAgICAgICAgICAgICAg ICAgICAgICAgICAgICAgICANCjw/zNByF5kwxODzlxC2H3enMo9DHz6FBT6oo1KqOJFqJPofgyAnGgaW IoZkQJPhZceUDmv5EZvmZK2HgRLcB5JxC7HfWAurUL 8MSSIeQGPrgNOeNALlVZIuSfJ0SJFrYQfzMV3XpUTrZFfaITUgRERkYhHsSTCqMFHpMIHgZWVnQKMYIR AcQTKaDbJoWMCjWJIfOLclIBPQZJV0HIRdVaAzMQwuNU2Yh2GckWS7LBq+Yg2TKE1rg7AiWCf7QfZeJQ 5xgp5YVKmWDpZoW0DfzuB9EMCpMKCnFu5DZTVpRJXv oUJ1DlYrMZHEZaLzX8MwzN72MWLNHs6+JZdhzgZkTgmILxMbMEOes7JnVSb8FV7TAWHxEUu0xJUsS27r m7QhaJWlGdtzZ6fgjIvmdAYKTMnqCVGznrtqTQPmHJPkEV7cYv8xGRDqRHPmFwKwMJJQGF0AXPFeXNOq iMTsPJPnSAKQBA2AHGgmJRG3YyljyyZkoAVaIKgmFE 9QYXJlbnQgNDIgMCBSDQo+Ka1DQF1js6CgCSq8JUAhOL6jum8EYYmEVmQaG2H3yIRvQ7E4PHpwQx1ENE PjCCDmETByZYXYOEuzQG1HDL0jknZ6NP5RaBIjAJZvRVKtoDWnTEv7V00tgSSvXBtoLL8PQZW+Mau+Pg 4MCKNvHMYhYDKxBxYlVXDHOgRlG0UoQ9JKg5InN5Fm PI44vZjxfcTdUTgqHY2VKU8kIOTuNUOUHN9TvZHyyA9mleP0MzNoCUONToUoL46qhBSyUVFhRUXoDDEf Wh5IKCGoG4OwmtLkhTqfzxXnZKKqOZQOAU0TBBfxrbMzzAJphYreHJ18uHsrBA3HSk3NFoXgAJ4eps7O nMQyOo4TXHB3HJ4FRTDmQAKjCVQvGGB8HLWeVgIjRT wlEBWvTWDtPDN3GEXaBXHhKT6BJgAfEKTbFboaHNvhPOYxQYTyfr7TSAXkZQP5NDVaDfEkMIHgSVQtWY ybNYLpRNCnWFK3DISkQOSpVQ2QFdWaWPLkHKYwDbSpVBSbYKQpfa7TOYFcRLTbJdD8PDRcENRjXWMaJG hgDVOcAKW6PbvfQWYfKRMyEV4HVzOeFWYnXQG3SJQe LIVyVHLhro5SNMGrQUTpTIO4DpGoDPRpSOVsKClzRTWeINH5NOd5PGAaWPStVZ7TDjGrOIKaPPP3DHcp RRQqCUGxcb2GVXQxPNNgHNQ1GHThKZMjMKMlQFcbAOIlGMIiADA2XHPqFOEpKV4EZoHtKAWuZZN1TDUq DZWhUPUlqi6EDTGiKHIfBEB3MRZiKLLgZZLaQLgcXN MpTZA1FPg9KHSgKUExNF8GHbGtSROkMQoeEZOpIRCvZUGtkg6RUGAxITIrDmR8LUNiBNVqDTRcKBcgYM NqFVH1QWO4YNMrEWYcAN3CMbIcVIRfUVirJtGoHWGgQRMpxa0RRTXjLARqCLBuJZCuRRSvFHRbNLoaKO UiZTW1YXXgMVGcCCCqNN9DYmRaNJFzEHh3YEIwYAKa GKOqlr4AZEDbIFHpXOG8WLQxMYMtOQRkDNkaFPQxKFMoZzE9ATVjSHEkPG7DQaPdCZVwPaX9UHYwNAQp APOulc0SALNhKIOuQCzlLBIsXUHjXSJgVZhzFZZgFCOxTZL1KVEgUVBkZO9LAlVbDZCaUbCoKJKdNICb LVFypl4OBZDnDUXlKwK7INZaEIEeRLRuVIxfUUIxMP JaKJD7PWOcWWOrJY4TCoGyXSFxUcU1EAHrPJYrDUGygj6IVJBoUCWcQBJpIETlWKMoUFDbGXzsYYPxEO N6IGG0UAWuYAJaWB6RSpWqGVHpJpY5NSPgYLWwBCVrwf2SJGXkLOKiLAElJGNuMTJiGOHkKTasHBDhFI Q7LcA5WISfOPIaPO2XFcOxXGHaSht8KMzfLVAkAIZl lv3OMRVxCXCeAGP8ZURsYVYnOPWuIUcuVOTxTKP3LzR3MFIdLEPuUJ5FZhHuKOHwIri2QGVcCBEcLBGm ul1ULCRrYAT5HQJ5WNHpRPAxLHRbCGiaVVZrQNYvBbHbOISmUEZgOO7PAxZvHJWjDFVhJUjxVEZlLUYd gn5AcVExqXdzkl0JWKlQYx4MjWwvFFF3NApgWl9raM F5XCPyHRWDKe3BnaAsYCVoUSYLFFwiFLUeFKbpEDNeONW8YPRlNCZpOQF1JHH4FKLuJzVrLQXxTzM6Tq S8S6G9YvYtSRQtBgR5TuF5DgwtRwg9VcZ9TbOyObQyVbG+YQ0qAEk+Gf8Zq2ZkksE6xuTgOCm7FLPiBX 4AWIZUT9SDEg== ID Date Data Source [id number] 03/24/2021 02:16:15 PM EDT [facility] Name Value Range Interpretation Code Description Data Arabella rce(s) Supporting Document(s) Care Plan [facility] RSOFFj7hHhLXZeNg40/PLZspUBLzx0FvIYqsKHf4WKiaVABeC1ZsAEK8sV6xUHH3PGgPEzZpHqGkXGT0 lbm [file] Cj4+WFsgxFNkqGlyHJJMQaRtPSD2AOcuHCXRGf8W ID Date Data Source [id number] 03/24/2021 01:20:24 PM EDT [facility] Name Value Range Interpretation Code Description Data Arabella rce(s) Supporting Document(s) Consults [facility] OOHLLk4cGpRSAdXq00/RYWdqETIkw8LgMJlvMOm8PZrrQIXnH0SdKTU0iW8xCYJ3CXbCJeEhLdAqPUI4 lbm [file] W4XSMEKySnYW6ABWb= ID Date Data Source [id number] 03/24/2021 12:26:04 PM EDT [facility] Name Value Range Interpretation Code Description Data Arabella rce(s) Supporting Document(s) Progress Notes [facility] MVLLRk2wPfFFGoPg34/XLSmrHZZvy0TcZQbnEVl9JLmuWBJhB7QlUFB0gV1aAUH9HWbRJuCcLxLgGWW2 lbm [file] ZqNKU1W7SyNZD5HzI1WAAwRoJjCK7SOn3TBnL1MOD8yXToMn5RFiI4CZZIFpUaMA0NIBr= ID Date Data Source [id number] 03/24/2021 12:13:35 PM EDT [facility] Name Value Range Interpretation Code Description Data Arabella rce(s) Supporting Document(s) Progress Notes [facility] PTLFGq6oEuDANuDb51/KZVcgKWHmi5QzNUkkNCa6YYtbFLBbN8KxLDS5iM7lYMW6UNbNKpFeDqTnLRU1 lbm [file] 0K ID Date Data Source [id number] 03/24/2021 05:26:27 AM EDT [facility] Name Value Range Interpretation Code Description Data Arabella rce(s) Supporting Document(s) Nursing Note [facility] SMCAOd7tPcAWTyUb31/NQBeiOEZtk6VlOPjaEHe2WYdgQGMkS0HgGUB2eT6sDAE7RIvFQdCfRzHbEWA0 lbm [file] AnFBVxSeL6EpF2HyJyJKTsZwXdTZ4LVv7HKrP9IUT1wGVdYy4HRzTsFJkLGmCtGY5SNRe= ID Date Data Source [id number] 03/24/2021 05:34:00 AM EDT [facility] Name Value Range Interpretation Code Description Data Arabella rce(s) Supporting Document(s) AST 12 IU/L 15-37 Below low normal [facility] Sulfasalazine and sulfapyridine have the potential to falsely depressAspartate Aminotransferase results. Baseline values before medication administration are recommended. ALT 17 IU/L 13-56 Normal (applies to non-numeric resul ts) [facility] Sulfasalazine and sulfapyridine have the potential to falsely depressAlanine Aminotransferase results. Baseline values before medication administration are recommended. Alkaline Phosphatase 53 mIU/ml 50-136 Normal (applies to non-num madiha results) [facility] Total Bilirubin 0.70 mg/dl 0.20-1.00 Normal (applies to non-numeric results) [facility] Blood Urea Nitrogen 6 mg/dl 7-18 Below low normal [facility] Creatinine 0.62 mg/dl 0.51-0.95 Normal (applies to non-numeric resul ts) [facility] N-Acetylcysteine (NAC) and Metamizole em ve the potential to falselydepress Creatinine results. Baseline values before medication adminstration are recommended. Patients undergoing treatment with phenindione will have falselydepressed results. Patients on phenindione therapy should be tested with an alternativeCREA method.Toxic levels of acetaminophen may lead to falsely depressed results forpatient samples. Glomerular Filtration Rate >90.00 mL/min/1.73m2 [facility] GFR Reference Ranges:Normal Function or Mild Renal [...] of Health and the National KidneyFoundation. The [place] method used in calculating this result is traceable to IDMS standards. Glucose 91 mg/dl 70-110 Normal (applies to non-numeric resul ts) [facility] Sulfasalazine has the potential to false ly depress Glucose results. Sulfapyridine has the potential to falsely elevate Glucose results. Baseline values before medication administration are recommended. Calcium 8.2 mg/dl 8.5-10.1 Below low normal [facility] Total Protein 6.2 g/dl 6.4-8.2 Below low normal [facility] Albumin 2.8 g/dl 3.4-5.0 Below low normal [facility] Sodium 141 mEq/L 136-145 Normal (applies to non-numeric resul ts) [facility] Potassium 3.9 mEq/L 3.5-5.1 Normal (applies to non-numeric resul ts) [facility] Chloride 113.0 mEq/L 98.0-107.0 Above high normal [facility] Anion Gap 8.1 [facility] Carbon Dioxide 23.8 mMol/L 21.0-32.0 Normal (applies to non-numeric results) [facility] The above 16 analytes were performed by [facility] [id number] [facility], ,[place] [address] ID Date Data Source [id number] 03/24/2021 05:34:00 AM EDT [facility] Name Value Range Interpretation Code Description Data Arabella rce(s) Supporting Document(s) Magnesium 2.0 mg/dl 1.6-2.6 Normal (applies to non-numeric resul ts) [facility] The above 1 analytes were performed by [facility] [id number] [facility], ,[place] [id number] ID Date Data Source [id number] 03/24/2021 05:26:00 AM EDT [facility] Name Value Range Interpretation Code Description Data Arabella rce(s) Supporting Document(s) WBC 6.03 x1000/ul 4.80-10.00 Normal (applies to non-numeric re sults) [facility] RBC 3.58 x1Mil/ul 4.20-5.40 Below low normal [facility] Hemoglobin 9.3 g/dl 12.0-16.0 Below low normal [facility] Hematocrit 30.2 % 37.0-47.0 Below low normal [facility] MCV 84.4 fL 81.0-99.0 Normal (applies to non-numeric resul ts) [facility] MCH 26.0 pg 27.0-31.0 Below low normal [facility] MCHC 30.8 g/dl 32.2-37.0 Below low normal [facility] RDW 16.3 % 11.5-14.5 Above high normal [facility] Platelet Count 230 x1000/ul 130-400 Normal (applies to non-numeric results) [facility] MPV 11.6 fL 9.4-12.4 Normal (applies to non-numeric resul ts) [facility] Neutrophils 46.6 % 40.0-74.0 Normal (applies to non-numeric resu lts) [facility] Lymphocytes 41.1 % 19.0-48.0 Normal (applies to non-numeric resu lts) [facility] Monocytes 9.1 % 3.4-9.0 Above high normal [facility] Eosinophils 2.0 % 0.0-7.0 Normal (applies to non-numeric resu lts) [facility] Basophils 1.0 % 0.0-2.0 Normal (applies to non-numeric resul ts) [facility] Immature Granulocytes 0.2 % 0.0-0.5 Normal (applies to non-nu meric results) [facility] Nucleated RBCs 0.00 % 0.00-0.20 Normal (applies to non-numeric r esults) [facility] Abs. Neutrophils 2.81 x1000/ul 1.92-8.31 Normal (applies to non-numeric results) [facility] Abs. Lymphocyte 2.48 x1000/ul 1.20-3.70 Normal (applies to non-n umeric results) [facility] Abs. Monocytes 0.55 x1000/ul 0.14-0.97 Normal (applies to non-nu meric results) [facility] Abs. Eosinophils 0.12 x1000/ul 0.00-0.76 Normal (applie s to non-numeric results) [facility] Abs. Basophils 0.06 x1000/ul 0.00-0.22 Normal (applies to non-n umeric results) [facility] Abs. Immature Gran. 0.01 x1000/ul 0.00-0.02 Normal (appl ies to non-numeric results) [facility] Abs. Nucleated RBCs 0.00 x1000/ul 0.00-0.02 Normal (appl ies to non-numeric results) [facility] The above 24 analytes were performed by [facility] [id number],[place] [address] ID Date Data Source [id number] 03/23/2021 11:42:40 PM EDT [facility] Name Value Range Interpretation Code Description Data Arabella rce(s) Supporting Document(s) Care Plan [facility] FXAOSf7pFlEAVdXn65/HLUaaPXChu9AdVSvoAPy9LEtfJZQkV8BuABM8vE8lZSB9DQkGAaQzFnGaSBF5 lbm [file] AgICAgICAgICAgICAgICAgICAgICAgICAgICAgICAg ICAgICAgICAgICAgICAgICAgICAgICAgICAgICAgICAgICANCiAgICAgICAgICAgICAgICAgICAgICAg ICAgICAgICAgICAgICAgICAgICAgICAgICAgICAgICAgICAgICAgICAgICAgICAgICAgICAgICAgICAg ICAgICAgICAgICAgICAgICANCiAgICAgICAgICAgIC AgICAgICAgICAgICAgICAgICAgICAgICAgICAgICAgICAgICAgICAgICAgICAgICAgICAgICAgICAgIC AgICAgICAgICAgICAgICAgICAgICAgICAgICANCiAgICAgICAgICAgICAgICAgICAgICAgICAgICAgIC AgICAgICAgICAgICAgICAgICAgICAgICAgICAgICAg ICAgICAgICAgICAgICAgICAgICAgICAgICAgICAgICAgICAgICANCiAgICAgICAgICAgICAgICAgICAg ICAgICAgICAgICAgICAgICAgICAgICAgICAgICAgICAgICAgICAgICAgICAgICAgICAgICAgICAgICAg ICAgICAgICAgICAgICAgICAgICANCiAgICAgICAgIC AgICAgICAgICAgICAgICAgICAgICAgICAgICAgICAgICAgICAgICAgICAgICAgICAgICAgICAgICAgIC AgICAgICAgICAgICAgICAgICAgICAgICAgICAgICANCiAgICAgICAgICAgICAgICAgICAgICAgICAgIC AgICAgICAgICAgICAgICAgICAgICAgICAgICAgICAg ICAgICAgICAgICAgICAgICAgICAgICAgICAgICAgICAgICAgICAgICANCiAgICAgICAgICAgICAgICAg ICAgICAgICAgICAgICAgICAgICAgICAgICAgICAgICAgICAgICAgICAgICAgICAgICAgICAgICAgICAg ICAgICAgICAgICAgICAgICAgICAgICANCiAgICAgIC AgICAgICAgICAgICAgICAgICAgICAgICAgICAgICAgICAgICAgICAgICAgICAgICAgICAgICAgICAgIC AgICAgICAgICAgICAgICAgICAgICAgICAgICAgICAgICANCiAgICAgICAgICAgICAgICAgICAgICAgIC AgICAgICAgICAgICAgICAgICAgICAgICAgICAgICAg ICAgICAgICAgICAgICAgICAgICAgICAgICAgICAgICAgICAgICAgICAgICANCjw/lXGvE7lrhEXqlmE4 Q8pnCp1ADt7KKN8qn9MnVJSyZMlxnkHgEalRCgOeOGOfQgzQLwu5AKxuOG6BxGWpX6ScY7NwZEfjFK8J VMSlZAChrNTdVVKfOLWdMpE2CPOfKGetKH6HkXDjUY xyXMEaNTCeHH3QIHQbS187zxOsRT3PIj3FVoGiIP9iri3MWqSmMDHnScqWSdz7HGlxOX6HpGSdaVEqPp CcQKUYDhTmX6ldd6UxMkQbHWKACZgbII4Ea9QagHJiYTh+Po1WZM0ex8LrPXsqTtIaDE1soi8HJLxZWj ThR4WbmUefPTOhtuKrWRkgppUwfOFNAPL5IJ0dGKNl grUsNPqrEYXLWHT2OYxyPOAyKsVpUYBlMUz8SmSARNgYFsXnR8Wrn9OmZmG2SSJkBwKsEAisXSPoPoE8 LH98wZzsRZ8VGTTsGMNvNV00THH4QVZiPm3RRe9TXdWhJE2vfy9ZOlxaJFYgVoeQQlf5VEpbXM1JbDBk H1VguMLdp6lHEqJsW0WZHKNjHETrUo0DJEMuUbUfWI TkDHiuVP0lOXOqFFRZqXvgwgA0WD4UZB1lfvYyCE2KNqSiAh3oCz4ZQvVfZ8YaL7AkEAFyBDLKVDruPX 3VJBbfNE7eEL9Jb1OVvSHwqG8fnf9NMCAqNPFmJnrhhr9UTywnR1W4yRmaXOBfSzIeOIOJTMrcJP3DJJ RgSKV0UNReAPCpAADYIaMhK29xIX6PD5Obu30iQoY5 MNKaUqGiPSbiHU23hNwqkgWevUMgaTefWO1MZn6+DQplbmRvYmoNCnhyZWYNCjAgMjgNCjAwMDAwMDAw ABNcSdE6TiRdPe6XQPViGBUcJSKqNjOnZABjFOVsLIvbQQMmCUCtVbLsJIArYWUnMV0MJnIgRVSgFcS3 QMLhBPTtUCTyau1PVYDgZYTqLUN5QmXzBEAsNXSpLZ hoBYDzFDDtETR2JHPpVEOeGQ6KBnHbGBRrKIBwSiOaFFInLWAbdc0DPBFhFYLwMkEfNAMzFTVoVIGaYR qzWRRmEOUsRsP5VESxJJExMB5MGyBaDKQtGOL4EPMsXSKsILFqjv9VLCHvIJZlMEC4XlOhERAzTJHqLB dfIOXfFIK1LwazKMUkTHNwJM8DSzVzSMJjKJU0ZLLo QPNsKELigr5OJCSiAWZiPxIoVFIhCWKuIIFpJXbeFNXfACL1OUO0JPFvZDAmEJ4CDiAoSPQvDVq1GuLy HBZdAWVhnx5HWPJnCULpImn4XyKbWIJnCTKdSEcoSPUfTCK0QFWeGWIpXNRvFY8IYfDdCAAlVSxdEENn WIEtPJRaxy9VYTHkSXGoVIP0MzVtUNXzQNLoGQtuPN RpCAW5BYV1QADwDPNdDE4ZByGrETHkRmUfXYTiSTBoZZVkjw0WGUTcJYLsACK7MJGhRFRyEHDhXRomUC VxECMwKoG5QQWeNBHpKW9HVlLbQJBfXyIvEnZoRVEvELByps9HKTBhPJQfHdUzFRQoRUNySTNuYNjdPM UjQAWnIjn9RUDnVCFcHI0IGsXmXPZvIyJ9AuNcARFx NJDefh3IpPKjvCqwvv2OLBnHJj9KvWkgBXF5FLiiTa1hzZKuSrZzWYRDPx6NyvZsMEJeCGHMQUdcJJIa RJfrSNf0CyW6BYOrWUXeGvDqBHBfKTIyAtTnNVlqOxdzOqC4MSM5IHcePrDxWOTiCYX9S1CcRbP1ExRr VTP2TDIgOOU+NA1yODy+Lo8Hi4KwuhX0mlGxUWfwFdD0RV1HEQLKI2EBBa== ID Date Data Source [id number] 03/23/2021 10:26:00 PM EDT [facility] Name Value Range Interpretation Code Description Data Arabella rce(s) Supporting Document(s) Glucose, Fingerstick 103 mg/dl 70-110 Normal (applies to non-num madiha results) [facility] The above 1 analytes were performed by [facility] [id number] [employer], ,[place] [address] ID Date Data Source [id number] 03/23/2021 10:23:00 PM EDT [facility] Name Value Range Interpretation Code Description Data Arabella rce(s) Supporting Document(s) Lactic Acid 1.8 mMol/L 0.4-2.0 Normal (applies to non-numeric resu lts) [facility] The above 1 analytes were performed by [facility] [id number], ,[place] [address] ID Date Data Source [id number] 03/23/2021 09:48:00 PM EDT [facility] Name Value Range Interpretation Code Description Data Arabella rce(s) Supporting Document(s) AST 12 IU/L 15-37 Below low normal [facility] Sulfasalazine and sulfapyridine have the potential to falsely depressAspartate Aminotransferase results. Baseline values before medication administration are recommended. ALT 16 IU/L 13-56 Normal (applies to non-numeric resul ts) [facility] Sulfasalazine and sulfapyridine have the potential to falsely depressAlanine Aminotransferase results. Baseline values before medication administration are recommended. Alkaline Phosphatase 56 mIU/ml 50-136 Normal (applies to non-num madiha results) [facility] Total Bilirubin 0.80 mg/dl 0.20-1.00 Normal (applies to non-numeric results) [facility] Blood Urea Nitrogen 7 mg/dl 7-18 Normal (applies to non-nume ny results) [facility] Creatinine 0.67 mg/dl 0.51-0.95 Normal (applies to non-numeric resul ts) [facility] N-Acetylcysteine (NAC) and Metamizole em ve the potential to falselydepress Creatinine results. Baseline values before medication adminstration are recommended. Patients undergoing treatment with phenindione will have falselydepressed results. Patients on phenindione therapy should be tested with an alternativeCREA method.Toxic levels of acetaminophen may lead to falsely depressed results forpatient samples. Glomerular Filtration Rate >90.00 mL/min/1.73m2 [facility] GFR Reference Ranges:Normal Function or Mild Renal [...] of Health and the National KidneyFoundation. The [place] method used in calculating this result is traceable to IDOK standards. Glucose 48 mg/dl 70-110 Below lower panic limits [facility] Sulfasalazine has the potential to false ly depress Glucose results. Sulfapyridine has the potential to falsely elevate Glucose results. Baseline values before medication administration are recommended.Repeat and Verified Called To (First Last):OBEY VALENTINE Degree/Accreditation of Person Called:RNLocation Called: [id number] Tests and Results Called:GLU 48Additional Tests that were Called:Read Back (Y/N):YDate:03/23/2021Time:2148By:CARTER CORDOBA Calcium 8.2 mg/dl 8.5-10.1 Below low normal [facility] Total Protein 6.6 g/dl 6.4-8.2 Normal (applies to non-numeric re sults) [facility] Albumin 3.0 g/dl 3.4-5.0 Below low normal [facility] Sodium 140 mEq/L 136-145 Normal (applies to non-numeric resul ts) [facility] Potassium 3.3 mEq/L 3.5-5.1 Below low normal [facility] Chloride 114.0 mEq/L 98.0-107.0 Above high normal [facility] Anion Gap 8.3 [facility] Carbon Dioxide 21.0 mMol/L 21.0-32.0 Normal (applies to non-numeric results) [facility] The above 16 analytes were performed by [facility] [id number], ,[place] [address] ID Date Data Source [id number] 03/23/2021 09:30:00 PM EDT [facility] Name Value Range Interpretation Code Description Data Arabella rce(s) Supporting Document(s) Magnesium 2.0 mg/dl 1.6-2.6 Normal (applies to non-numeric resul ts) [facility] The above 1 analytes were performed by [facility] [id number], ,[place] [address] ID Date Data Source [id number] 03/23/2021 09:30:00 PM EDT [facility] Name Value Range Interpretation Code Description Data Arabella rce(s) Supporting Document(s) C-Reactive Protein (Non-Cardiac) <2.90 mg/L 0.00-3.00 Normal (applies to non- numeric results) [facility] The above 1 analytes were performed by [facility] [address], ,[place] [address] ID Date Data Source [id number] 03/23/2021 09:05:00 PM EDT [facility] Name Value Range Interpretation Code Description Data Arabella rce(s) Supporting Document(s) WBC 6.19 x1000/ul 4.80-10.00 Normal (applies to non-numeric re sults) [facility] RBC 3.47 x1Mil/ul 4.20-5.40 Below low normal [facility] Hemoglobin 9.1 g/dl 12.0-16.0 Below low normal [facility] Hematocrit 29.8 % 37.0-47.0 Below low normal [facility] MCV 85.9 fL 81.0-99.0 Normal (applies to non-numeric resul ts) [facility] MCH 26.2 pg 27.0-31.0 Below low normal [facility] MCHC 30.5 g/dl 32.2-37.0 Below low normal [facility] RDW 16.8 % 11.5-14.5 Above high normal [facility] Platelet Count 228 x1000/ul 130-400 Normal (applies to non-numeric results) [facility] MPV 11.4 fL 9.4-12.4 Normal (applies to non-numeric resul ts) [facility] Neutrophils 54.6 % 40.0-74.0 Normal (applies to non-numeric resu lts) [facility] Lymphocytes 34.7 % 19.0-48.0 Normal (applies to non-numeric resu lts) [facility] Monocytes 8.7 % 3.4-9.0 Normal (applies to non-numeric resul ts) [facility] Eosinophils 1.1 % 0.0-7.0 Normal (applies to non-numeric resu lts) [facility] Basophils 0.6 % 0.0-2.0 Normal (applies to non-numeric resul ts) [facility] Immature Granulocytes 0.3 % 0.0-0.5 Normal (applies to non-nu meric results) [facility] Nucleated RBCs 0.00 % 0.00-0.20 Normal (applies to non-numeric r esults) [facility] Abs. Neutrophils 3.37 x1000/ul 1.92-8.31 Normal (applies to non-numeric results) [facility] Abs. Lymphocyte 2.15 x1000/ul 1.20-3.70 Normal (applies to non-n umeric results) [facility] Abs. Monocytes 0.54 x1000/ul 0.14-0.97 Normal (applies to non-nu meric results) [facility] Abs. Eosinophils 0.07 x1000/ul 0.00-0.76 Normal (applie s to non-numeric results) [facility] Abs. Basophils 0.04 x1000/ul 0.00-0.22 Normal (applies to non-n umeric results) [facility] Abs. Immature Gran. 0.02 x1000/ul 0.00-0.02 Normal (appl ies to non-numeric results) [facility] Abs. Nucleated RBCs 0.00 x1000/ul 0.00-0.02 Normal (appl ies to non-numeric results) [facility] The above 24 analytes were performed by [facility] [id number], ,[place] [address] ID Date Data Source [id number] 03/23/2021 07:56:26 PM EDT [facility] Name Value Range Interpretation Code Description Data Arabella rce(s) Supporting Document(s) Nursing Note [facility] CSOUFk5sJsQXUxTi80/SXUqiLSBeh2CmWCqqBRx9LKcjRARrS8AiYZK6vN4bGHM2LHjMRfUvShUeZMJ0 lbm [file] [id number]= ID Date Data Source [id number] 03/23/2021 06:01:26 PM EDT [facility] Name Value Range Interpretation Code Description Data Arabella rce(s) Supporting Document(s) H&P [facility] FZPMFa9aNfRYLoDu90/PWKvmYWUhf7RjXZelVFp7UGoePBPjO3VqLYX1cE2cYPK3RQrRXeYtLqCiHFT1 lbm [file] AgICAgICAgICAgICAgICAgICAgICAgICAgICAgICAgICAgICAgICAgICAgICAgICAgICAgICAgICAgIC VhGWZtEMTtRCPcGOLnOUEaPVLkMB6CNBToEAKgIETc ICAgICAgICAgICAgICAgICAgICAgICAgICAgICAgICAgICAgICAgICAgICAgICAgICAgICAgICAgICAg QQLnOCIvHWJbPEXlCAHtBCBbOMJiDCSlSYVvJYZlNX5IKGFxQZWfKJRyNMSsJDOdKZKnATTyLCPiSWYa ICAgICAgICAgICAgICAgICAgICAgICAgICAgICAgIC YyDERbJJUwEPWlSRWaEGLgHRLkEZBoXQStITRbKRXxIHBvIYHuURLtSH4LMZFfEQYsAZEnSGLxOCJxVU AgICAgICAgICAgICAgICAgICAgICAgICAgICAgICAgICAgICAgICAgICAgICAgICAgICAgICAgICAgIC KuTMEsZLWoRUJcFIWmAQNzJGPrZXVxBB8JMHLlHHTk ICAgICAgICAgICAgICAgICAgICAgICAgICAgICAgICAgICAgICAgICAgICAgICAgICAgICAgICAgICAg OWRuIRVnTMZxWPXkLTBcOCTfSAQgTFFbNKXnHQBoKNFvTT5AGVJdRMWcBAWqDJXrKFSoUIXkVZCmOHGm ICAgICAgICAgICAgICAgICAgICAgICAgICAgICAgIC GtHCPkSICaQYWkNPMfPOFyINGcMITuZZPlTSQnOSYeOFBfQRMrKFSuLSLpJH7LNBSzURLaLPQgFKAfCB AgICAgICAgICAgICAgICAgICAgICAgICAgICAgICAgICAgICAgICAgICAgICAgICAgICAgICAgICAgIC WaFRPkEZTgARMwFLEoJDClNJJiLUDoDSBaBI8RVTKl ICAgICAgICAgICAgICAgICAgICAgICAgICAgICAgICAgICAgICAgICAgICAgICAgICAgICAgICAgICAg FSRuZHXyLCQeISGhUJIiXJTkUSRgJYRrYXGyOQJqJUXwMREgLI5WLRNhWLCcCCRqMEHiKNAxIJBcNOZu ICAgICAgICAgICAgICAgICAgICAgICAgICAgICAgIC AiHPOyFXCtDLGfBEGtQUJnHBHrYGIzYGJwMVPdUSWnLDCpRWHdBWNeXHSiBFMjAY1EUUYeKYCkZTNwRJ AgICAgICAgICAgICAgICAgICAgICAgICAgICAgICAgICAgICAgICAgICAgICAgICAgICAgICAgICAgIC YaXJVrKNVmLSDoNZFqHHFlTIYbFUTyDXMvPGHjRQ2B WO79sFUtr0B0UHJxZN7ioni/Zx1KWTlkpzXszWNgZI9YNiTrWC6eoq2UMuIsEW1nxl9BSGuUHbQnH4R8 aXNiDEWzMMARLnKuR85lWFemXu56EWbxWJFhKjQdDCx2Nr9ERlZnM6wbIWDeVtO0YILhAaZ3QVZaJpE1 GNEbFgPfJZRxFSEbVU5IAWOsV116ztAkPL7RPb9EUi TbXT6mar9ZCvpxGZBnInyEYku3PWjsAI2CmONdbIIpJKIuVWFFJsFuF1ufo7LdTnkzTNBEVWbxDK2Nk5 VudCAxDQo+Ne7HJQ5wy8WoTLszEASoOO0wpu4YFWbYVzYlW9CugAdhYQlmNMQwyOKYfBHksfAQiABvDP JRPPQchKH9NjS2XqVlIeXzTMB3UVErBQ9tIPujYA6P NQD5WGcrPOChMPLgI7jERkCgJMtxPVUomEpbCN1KDuXxD3HqpdAfoUUbPlGnKENUPv5+DQplbmRvYmoN QhL3WDEpu0WgBMp8HO9YORBqOQxrNW6PDYOowG7eNAieEV4BVvZwRTLaSIVUWmIuE67gdIYbCTk9Z4Vw YmVkZGVkRmlsZXMgPDwvTmFtZXMgWyBdDQogID4+ID 4+AQbhUR4MMKvbqkZqTSQaEc1WGPDtRCGzVT1nVSShEDEnC4R2jFlaCLYHEpMoA4cocvowZK1kYAMsJ8 85eEjscjZbPIH1OLOaGb2VWGFoLUO0ZYOqwBOuFwBwPQRFVAcdAP4MfBBuLWQ4aX2lUJylGDEcEKNlK8 uYMoQveOmxVG12vXpxsxRmoCYpWWb+Uw7IKV0ad8Fh KCt4xyRhYPrmRXTxJXxrCMMzJPWhBEYrBGV8PEX7INJFEnOgLXJaDWLdDLygHRKmOZYzss7BJAEsDHVt QQO1CTBqMTRzQXNaVAgrWHIyWWRyBGPgAJJoSPMiCQ0FDzEdAOAkUUIsVRrfFMDeTYJgxv7ADTLhGSMw MqMfBpZaVLAzRSLhDYxeQZFmZVKcLaJ4XQXcKNTdCB 9LXyXrPWBbQTI0DowgWGThEOFnyi4SHORrCRWwVVG1GNUnKABbVNEtTMuxGWKeZYL5SPHgIEHiUEPhDF 1ZMyJhXNNwXWhqWlduMLLpGGPefg5LOFWbUWZfEAY1XLYxEPYsWAYdUNpxJLOcYQK1NGdjBTIuFAVrPK 5ALoQwGOVdHSQ1XqPmDLQfVUShgf2VENBpPNQtLNQt LrOrZVBhTRWfXWvtUIIuNBSsMHYdZBWiTTMwGK5MEjMpGBAkJAS2NVNaXNHzRUTaca7TNZXsRDXcIYa1 ZgDbTZLaVHMlNHksJDMzXBDuAPYzMFKrSUEzST8TWoWqMFGkJuV2VNncJMNaMNGzdv3JBBJySSVfANkv HJMcAQWuQTDmCKeeMJUdXWT2LXF8IGErPDWuUI4HTf SrQNOpDjSdIbWvVKRxZBBowd1GYSAcJUQvADUiXFDlATFbDRVnXWuuQXPaLMB4JyIwMTSrUUWmKD9STm ZuUTCqCiT2HGAwQFXaZVFrsq5AWQSfWOHxSuzvDlNoJIOhQUJwAJcpDXQyQJI2Ytu7BJXvVKQhGY9WIk BrTOWcKcv1QKhlBOTvCRWvtl8DEAEeUHIzCZJoZzAv UIPmPYTnURioEMCcJNR3ECk1TCLeKDRwSL8GJnYzIXKyCphsCLzjIUCeZJSlqp6MSDEeNMKpIQDkLfYf GXZaDHEfFIagDPLgFHBiXok7XKQcOBHuOB1RCtJyVBEkSsR2TpFeYPRaOHUrog4NIQYaJEWqHPK7WGWn UFEmGCXiLPutQHLcFJPrMRDaNKFyFWNeTZ8MUiCxEU OvZsX1YVClJUYhAOBgwe0RZSGwDJMuXsT7UYAvWVSuMCTeOVfzXZGaQICmVcp4COQkIEQpGW6DVdKqXM wbNMEUCov1IZtoB6z0GLE1OH9WS6Haf0MsPnsaICXTBSeaMV4xqdFrEEMaIj6NY2gFUrzrKZSfDOrsPT BgYYUxPaCvLeU8WZTyLuU2NHM2RopzGQ0yBTN8PYW7 XNCrF7MkZcQtHjVsXjm0KhJzSGAqOvPtFhY5TgPqAK6DHi0DWfZ2JIB6lLOvXc8MLoUxQowYPpEmBO1V DQo= ID Date Data Source [id number] 03/22/2021 08:28:35 PM EDT [facility] Name Value Range Interpretation Code Description Data Arabella rce(s) Supporting Document(s) Progress Note [facility] FUPFQj7yNcDLXvQk29/RGXjuUTNso9ZcTQkcHWr8XTuvRHZaY9MjHMR6jB4rSPQ8FCrFXiXcMeEmNBG9 lbm CpExlEIyXxTQIuIksIRwYsKQniLirtvBOiJZ9FmYX2ZMRtV49lUHVwPXSiT5YiFBB8KRW+Db6VEWKdzX YcUT2ICxtQ1Ykbv+H1ZP0aMU4SdXEeZQ6hNOyvXhqZm5Mhmf0QIYDnsmVPJAUqFwhEaDo041q1KIgjHq bjfwtjII3sD4Y+u9/+uRARPBl3tgEG31Xgga+vv4YR Z8M5+/orVk/z+Hpa/YQXGoy3M89eCFB/rl9fX2svw/pTu2W31g/rwQmTgWAnkROw/ujobBr/5Bf14uOq RPEXPom74TZUSOeBUDnJj1k/Kzvvs+rwQF8hUZ5x5EopFTINwfvV1bv1h7CgQ3xlLJF0xlRrLkW8WNrk 26VLImG3vcJsAcLp9ZyXYXzq4f153ilVA+fvIRTUuB U1Lc+JpIM+0sadw4h7tgNiyyUiVD4eqknjBw2p4IOOU4DvM2dJrZjzyhmeeW7FBV1iQaGD9Kv0npmjjU ZgcK+t0whaqPm1N5xhdsrWoRIwXj7h5vGR/Y9RWoKuBFXrZiGBG8bR1VwwGrKqja/s/Jm5fhuWimlMl8 6nlfKuNkTNm0tx/RLl++GPJqgXOtwePjiCDb6qi3tc iPpzd8uob4Ln9ibPb0uxjg+s46xdxi0D/BF9WgS8oROyQ+5TRfInMNs0VLN9RmT8GgYgOgTSsN1i/ARNAUD [file] ID Date Data Source [id number] 03/22/2021 06:09:00 PM EDT [facility] ital TSYSORDER [id number] Name Value Range Interpretation Code Description Data Arabella rce(s) Supporting Document(s) URINE COLOR. [facility] URINE APPEARANCE CLEAR [facility] UR[facility] GLUCOSE (UA) NEGATIVE mg/dL NEGATIVE [facility] URINE BILIRUBIN NEGATIVE NEGATIVE [facility] URINE KETONE 5(TRACE) mg/dL NEGATIVE H [facility] SPECIFIC GRAVITY,URINE 1.015 1.005-1.030 [facility] URINE BLOOD NEGATIVE NEGATIVE [facility] PH,URINE 7.5 5.0-9.0 [facility] URINE PROTEIN NEGATIVE mg/dL NEGATIVE [facility] URINE UROBILINOGEN NORMAL(0.2-1) mg/dL 0-1 R [facility] URINE NITRATE NEGATIVE NEGATIVE [facility] URINE LEUKOCYTE ESTERASE NEGATIVE NEGATIVE [facility] ID Date Data Source [id number] 03/22/2021 05:30:00 PM EDT [facility] Name Value Range Interpretation Code Description Data Arabella rce(s) Supporting Document(s) [facility] was ordered by [facility] and reported by [facility]. ID Date Data Source [id number] 03/22/2021 06:06:00 PM EDT [facility] jay TSYSORDER [id number] Name Value Range Interpretation Code Description Data Arabella rce(s) Supporting Document(s) COVID-19 NEGATIVE NEGATIVE [facility] Negative results should be treated as [...] are for the indentification of SARS-CoV-2 RNA. QgvWDYI-FhO-8 RNA is generally detectable in respiratorysamples during the actue phase of infection. ID Date Data Source [id number] 03/22/2021 04:58:00 PM EDT [facility] DATE OF EXAMINATION: 03/22/2021 14:46 EDT [...] rce(s) Supporting Document(s) ID Date Data Source [id number] 03/22/2021 03:33:00 PM EDT [facility] TSYSORDER [id number] Name Value Range Interpretation Code Description Data Arabella rce(s) Supporting Document(s) LACTIC ACID 0.9 mmol/L 0.4-2.0 [facility] ID Date Data Source [id number] 03/22/2021 03:31:00 PM EDT [facility] TSYSORDER [id number] Name Value Range Interpretation Code Description Data Arabella rce(s) Supporting Document(s) GLUCOSE 88 mg/dL 74-106 [facility] BLOOD UREA NITROGEN 11 mg/dL 7-18 [facility] ital CREATININE 0.71 mg/dL 0.6-1.0 [facility] SODIUM 139 mmol/L 136-145 [facility] POTASSIUM 4.2 mmol/L 3.5-5.1 [facility] CHLORIDE 105 mmol/L 98-107 [facility] CO2 23 mmol/L 21-32 [facility] CALCIUM 9.2 mg/dL 8.5-10.1 [facility] ANION GAP 11.0 mmol/L 5-12 [facility] GLOMERULAR FILTRATION RATE >90 mL/min [facility] GFR IS CALCULATED IN mL/min/1.73m2 JUDITH L FUNCTION: >90MILDLY DECREASED: 60-89MILDY TO MODERATELY DECREASED: 45-59 MODERATELY TO SEVERELY DECREASED: 30-44SEVERELY DECREASED: 15-29RENAL FAILURE: <15 AST 20 U/L 15-37 [facility] ALT 20 U/L 12-78 [facility] ALKALINE PHOSPHATASE 70 U/L 46-116 [facility] pital TOTAL BILIRUBIN 1.0 mg/dL 0.2-1.0 [facility] TOTAL PROTEIN 7.6 g/dl 6.4-8.2 [facility] ALBUMIN 3.4 gm/dL 3.4-5.0 [facility] ID Date Data Source [id number] 03/22/2021 03:31:00 PM EDT [facility] TSYSORDER [id number] Name Value Range Interpretation Code Description Data Arablela rce(s) Supporting Document(s) LIPASE 117 U/L 73-393 [facility] ID Date Data Source [id number] 03/22/2021 03:24:00 PM T [facility] T[facility] [id number] Name Value Range Interpretation Code Description Data Arabella rce(s) Supporting Document(s) HCG,SERUM NEGATIVE NEGATIVE [facility] False negative results may occur when th e levels of hCG arebelow the sensitivity level of the test. If isstill suspected, a first morning urine specimen should becollected 48hrs later.This test has a sensitivity of 10mIU/mL in serum pej48bQA/mL in urine. ID Date Data Source [id number] 03/22/2021 03:10:00 PM EDT [facility] TSYSORDER [id number] Name Value Range Interpretation Code Description Data Arabella rce(s) Supporting Document(s) WHITE BLOOD COUNT 6.3 K/mm3 4.0-10.0 [facility] al RED BLOOD COUNT 3.90 M/mm3 4.00-5.50 L [facility] HEMOGLOBIN 10.2 gm/dL 12.0-16.0 L [facility] HEMATOCRIT 31.5 % 36.0-48.8 L [facility] MEAN CELL VOLUME 80.8 fl 80-96 [facility] MEAN CORPUSCULAR HEMOGLOBIN 26.2 pg 27.0-31.0 L [facility] MEAN CORPUSCULAR HGB CONC 32.4 g/dl 32.0-36.0 [facility] RED CELL DISTRIBUTION WIDTH 16.4 % 10.0-14.5 H [facility] PLATELET COUNT 146 K/mm3 172-450 L [facility] MEAN PLATELET VOLUME 12.1 fl 9.0-13.0 [facility] pital GRAN % 60.8 % 50-80.0 [facility] IG% 0.2 % 0.0-0.2 [facility] LYMPH % 30.7 % 25.0-50.0 [facility] MONO % 6.7 % 2.0-10.0 [facility] EOS % 1.0 % 0-5.0 [facility] BASO % 0.6 % 0.0-2.0 [facility] GRAN # 3.8 K/mm3 2.0-8.00 [facility] IG# 0.0 K/mm3 0.0-0.2 [facility] LYMPH # 1.9 K/mm3 1.0-5.0 [facility] MONO # 0.4 K/mm3 0.10-1.20 [facility] EOS # 0.1 K/mm3 0.0-0.5 [facility] BASO # 0.0 K/mm3 0.0-0.2 [facility] ID Date Data Source [id number] 03/19/2021 08:43:00 AM EDT [facility] DATE OF EXAMINATION: 03/19/2021 8:12 EDT ABD/PEL [...] Data Source CT ABD/PEL NO CONTRAST - [id number] 03/19/2021 12:00:00 AM EDT eC W1 ([facility]) Name Value Range Interpretation Code Description Data Arabella rce(s) Supporting Document(s) CT ABD/PEL NO CONTRAST - [id number] eCW1 ([facility]) ID Date Data Source [id number] 03/10/2021 04:36:00 PM EDT [facility] DATE OF EXAMINATION: 03/10/2021 16:09 [...] rce(s) Supporting Document(s) ID Date Data Source [id number] 03/10/2021 04:50:00 PM EDT [facility] Name Value Range Interpretation Code Description Data Arabella rce(s) Supporting Document(s) FERRITIN 7 ng/mL 8-252 L [facility] ID Date Data Source [id number] 03/10/2021 04:50:00 PM EDT [facility] Name Value Range Interpretation Code Description Data Arabella rce(s) Supporting Document(s) IRON 38 ug/dL 50-170 L [facility] TIBC 429 ug/dL 250-450 [facility] % SATURATION 9 % 20-50 L [facility] ID Date Data Source [id number] 03/10/2021 04:50:00 PM EDT [facility] Name Value Range Interpretation Code Description Data Arabella rce(s) Supporting Document(s) TROPONIN-HIGH SENSITIVITY < 4.0 ng/L 0-60.4 [facility] ID Date Data Source [id number] 03/10/2021 04:50:00 PM EDT [facility] Name Value Range Interpretation Code Description Data Arabella rce(s) Supporting Document(s) CKMB 1.3 ng/ml 0.0-3.6 [facility] ID Date Data Source [id number] 03/10/2021 04:50:00 PM EDT [facility] Name Value Range Interpretation Code Description Data Arabella rce(s) Supporting Document(s) GLUCOSE 89 mg/dL 74-106 [facility] BLOOD UREA NITROGEN 11 mg/dL 7-18 [facility] ital CREATININE 0.85 mg/dL 0.6-1.0 [facility] SODIUM 138 mmol/L 136-145 [facility] POTASSIUM 4.2 mmol/L 3.5-5.1 [facility] CHLORIDE 104 mmol/L 98-107 [facility] CO2 27 mmol/L 21-32 [facility] CALCIUM 8.7 mg/dL 8.5-10.1 [facility] ANION GAP 7.0 mmol/L 5-12 [facility] GLOMERULAR FILTRATION RATE 75 mL/min [facility] GFR IS CALCULATED IN mL/min/1.73m2 JUDITH L FUNCTION: >90MILDLY DECREASED: 60-89MILDY TO MODERATELY DECREASED: 45-59 MODERATELY TO SEVERELY DECREASED: 30-44SEVERELY DECREASED: 15-29RENAL FAILURE: <15 AST 15 U/L 15-37 [facility] ALT 20 U/L 12-78 [facility] ALKALINE PHOSPHATASE 80 U/L 46-116 [facility] TOTAL BILIRUBIN 0.5 mg/dL 0.2-1.0 [facility] TOTAL PROTEIN 7.8 g/dl 6.4-8.2 [facility] ALBUMIN 3.5 gm/dL 3.4-5.0 [facility] ID Date Data Source [id number] 03/10/2021 04:50:00 PM EDT [facility] Name Value Range Interpretation Code Description Data Arabella rce(s) Supporting Document(s) FREE T4 0.4 ng/dL 0.76-1.46 L [facility] ID Date Data Source [id number] [facility]/10[facility]21 [facility]50[facility] Name Value Range Interpretation Code Description Data Arabella rce(s) Supporting Document(s) TSH 27.184 uIU/mL 0.360-3.740 H [facility] ID Date Data Source [id number] 03/10/2021 04:22:00 PM EDT [facility] Name Value Range Interpretation Code Description Data Arabella rce(s) Supporting Document(s) WHITE BLOOD COUNT 6.9 K/mm3 4.0-10.0 [facility] RED BLOOD COUNT 4.05 M/mm3 4.00-5.50 [facility] HEMOGLOBIN 10.4 gm/dL 12.0-16.0 L [facility] HEMATOCRIT 33.2 % 36.0-48.8 L [facility] MEAN CELL VOLUME 82.0 fl 80-96 [facility] MEAN CORPUSCULAR HEMOGLOBIN 25.7 pg 27.0-31.0 L [facility] MEAN CORPUSCULAR HGB CONC 31.3 g/dl 32.0-36.0 L [facility] RED CELL DISTRIBUTION WIDTH 16.2 % 10.0-14.5 H [facility] PLATELET COUNT 360 K/mm3 172-450 [facility] MEAN PLATELET VOLUME 10.3 fl 9.0-13.0 [facility] pital GRAN % 55.3 % 50-80.0 [facility] IG% 0.1 % 0.0-0.2 [facility] LYMPH % 34.2 % 25.0-50.0 [facility] MONO % 7.6 % 2.0-10.0 [facility] EOS % 2.2 % 0-5.0 [facility] BASO % 0.6 % 0.0-2.0 [facility] GRAN # 3.8 K/mm3 2.0-8.00 [facility] IG# 0.0 K/mm3 0.0-0.2 [facility] LYMPH # 2.4 K/mm3 1.0-5.0 [facility] MONO # 0.5 K/mm3 0.10-1.20 [facility] EOS # 0.2 K/mm3 0.0-0.5 [facility] BASO # 0.0 K/mm3 0.0-0.2 [facility] ID Date Data Source [id number] 03/10/2021 04:59:00 PM EDT [facility] FAX [phone] Name Value Range Interpretation Code Description Data Arabella rce(s) Supporting Document(s) LITHIUM < 0.20 mmol/L 0.6-1.20 L [facility] ID Date Data Source FERRITIN 03/10/2021 12:00:00 AM EDT eCW1 ([facility]) Name Value Range Interpretation Code Description Data Arabella rce(s) Supporting Document(s) 7 8-252 FERRITIN eCW1 ([facility]) ID Date Data Source IRON PROFILE 03/10/2021 12:00:00 AM EDT eCW1 ([facility]) Name Value Range Interpretation Code Description Data Arabella rce(s) Supporting Document(s) 429 250-450 TIBC eCW1 ([facility]) 38 50-170 IRON eCW1 ([facility]) 9 20-50 % SATURATION eCW1 ([facility]) ID Date Data Source CBC W/DIFF 03/10/2021 12:00:00 AM EDT eCW1 ([facility]) Name Value Range Interpretation Code Description Data Arabella rce(s) Supporting Document(s) 10.4 12.0-16.0 HEMOGLOBIN eCW1 ([facility]) 4.05 4.00-5.50 RED BLOOD COUNT eCW1 ([facility] 6.9 4.0-10.0 WHITE BLOOD COUNT eCW1 ([facility]) 25.7 27.0-31.0 MEAN CORPUSCULAR HEMOGLOB IN eCW1 ([facility]) 82.0 80-96 MEAN CELL VOLUME eCW1 ([facility]) 33.2 36.0-48.8 HEMATOCRIT eCW1 ([facility]) 31.3 32.0-36.0 MEAN CORPUSCULAR HGB CONC eCW1 ([facility]) 16.2 10.0-14.5 RED CELL DISTRIBUTION WID TH eCW1 ([facility]) 360 172-450 PLATELET COUNT eCW1 ([facility]) 34.2 25.0-50.0 LYMPH % eCW1 ([facility]) 7.6 2.0-10.0 MONO % eCW1 ([facility]) 10.3 9.0-13.0 MEAN PLATELET VOLUME eCW1 ([facility]) 55.3 50-80.0 GRAN % eCW1 ([facility]) 0.6 0.0-2.0 BASO % eCW1 ([facility]) 3.8 2.0-8.00 GRAN # eCW1 ([facility]) 2.2 0-5.0 EOS % eCW1 ([facility]) 0.2 0.0-0.5 EOS # eCW1 ([facility]) 2.4 1.0-5.0 LYMPH # eCW1 ([facility]) 0.5 0.10-1.20 MONO # eCW1 ([facility]) 0.0 0.0-0.2 BASO # eCW1 ([facility]) ID Date Data Source CHEST 2 VIEWS 03/10/2021 12:00:00 AM EDT eCW1 ([facility]) Name Value Range Interpretation Code Description Data Arabella rce(s) Supporting Document(s) CHEST 2 VIEWS eCW1 ([facility]) ID Date Data Source FREE T4 03/10/2021 12:00:00 AM EDT eCW1 ([facility]) Name Value Range Interpretation Code Description Data Arabella rce(s) Supporting Document(s) 0.4 0.76-1.46 FREE T4 eCW1 ([facility]) ID Date Data Source TSH 03/10/2021 12:00:00 AM EDT eCW1 ([facility]) Name Value Range Interpretation Code Description Data Arabella rce(s) Supporting Document(s) 27.184 0.360-3.740 TSH eCW1 ([facility]) ID Date Data Source CKMB 03/10/2021 12:00:00 AM EDT eCW1 ([facility]) Name Value Range Interpretation Code Description Data Arabella rce(s) Supporting Document(s) 1.3 0.0-3.6 CKMB eCW1 ([facility]) ID Date Data Source [id number] 01/30/2021 08:06:00 AM EDT [facility] Name Value Range Interpretation Code Description Data Arabella rce(s) Supporting Document(s) Folate (Folic Acid), Serum 8.6 ng/mL >3.0 [facility] A serum folate concentration of less simi n 3.1 ng/mL isconsidered to represent clinical deficiency. ID Date Data Source [id number] 01/30/2021 08:06:00 AM EDT [facility] Name Value Range Interpretation Code Description Data Arabella rce(s) Supporting Document(s) Vitamin B12 351 pg/mL [id number] [facility] ID Date Data Source [id number] 01/30/2021 08:06:00 AM EDT [facility] Name Value Range Interpretation Code Description Data Arabella rce(s) Supporting Document(s) FOLATE (FOLIC ACID), SERUM 8.6 ng/mL >3.0 [facility] A serum folate concentration of less simi n 3.1 ng/mL isconsidered to represent clinical deficiency. ID Date Data Source [id number] 01/30/2021 08:06:00 AM EDT [facility] Name Value Range Interpretation Code Description Data Arabella rce(s) Supporting Document(s) VITAMIN B12 351 pg/mL [id number] [facility] Performed at: RN - [facility] [address] [id number] Director: Sharmaine Siddiqui MD, Phone: [phone] ID Date Data Source [id number] 01/29/2021 03:33:00 PM EDT [facility] Name Value Range Interpretation Code Description Data Arabella rce(s) Supporting Document(s) IRON 31 ug/dL 50-170 L [facility] TIBC 462 ug/dL 250-450 H [facility] % SATURATION 7 % 20-50 L [facility] ID Date Data Source [id number] 01/15/2021 01:59:00 PM EDT [facility] DATE OF EXAMINATION: 01/15/2021 11:42 EDT [...] rce(s) Supporting Document(s) ID Date Data Source [id number] 01/15/2021 12:37:00 PM EDT [facility] DATE OF EXAMINATION: 01/15/2021 11:42 EDT [...] rce(s) Supporting Document(s) ID Date Data Source [id number] 01/15/2021 11:52:00 AM EDT [facility] Name Value Range Interpretation Code Description Data Arabella rce(s) Supporting Document(s) WHITE BLOOD COUNT 6.3 K/mm3 4.0-10.0 [facility] al RED BLOOD COUNT 3.71 M/mm3 4.00-5.50 L [facility] HEMOGLOBIN 9.7 gm/dL 12.0-16.0 [facility] HEMATOCRIT 30.5 % 36.0-48.8 L [facility] MEAN CELL VOLUME 82.2 fl 80-96 [facility] MEAN CORPUSCULAR HEMOGLOBIN 26.1 pg 27.0-31.0 L [facility] MEAN CORPUSCULAR HGB CONC 31.8 g/dl 32.0-36.0 L [facility] RED CELL DISTRIBUTION WIDTH 13.7 % 10.0-14.5 [facility] PLATELET COUNT 255 K/mm3 172-450 [facility] MEAN PLATELET VOLUME 10.9 fl 9.0-13.0 [facility] pital GRAN % 53.2 % 50-80.0 [facility] IG% 0.0 % 0.0-0.2 [facility] LYMPH % 35.0 % 25.0-50.0 [facility] MONO % 9.1 % 2.0-10.0 [facility] EOS % 2.1 % 0-5.0 [facility] BASO % 0.6 % 0.0-2.0 [facility] GRAN # 3.4 K/mm3 2.0-8.00 [facility] IG# 0.0 K/mm3 0.0-0.2 [facility] LYMPH # 2.2 K/mm3 1.0-5.0 [facility] MONO # 0.6 K/mm3 0.10-1.20 [facility] EOS # 0.1 K/mm3 0.0-0.5 [facility] BASO # 0.0 K/mm3 0.0-0.2 [facility] ID Date Data Source [id number] 01/15/2021 12:35:00 PM EDT [facility] Name Value Range Interpretation Code Description Data Arabella rce(s) Supporting Document(s) ERYTHROCYTE SEDIMENTATION RATE 70 mm/hr 0-20 H [facility] ID Date Data Source [id number] 01/15/2021 12:10:00 PM EDT [facility] Name Value Range Interpretation Code Description Data Arabella rce(s) Supporting Document(s) FREE T4 0.5 ng/dL 0.76-1.46 L [facility] ID Date Data Source [id number] 01/15/2021 12:10:00 PM EDT [facility] Name Value Range Interpretation Code Description Data Arabella rce(s) Supporting Document(s) TSH 19.669 uIU/mL 0.360-3.740 H [facility] ID Date Data Source [id number] 01/15/2021 11:59:00 AM EDT [facility] Name Value Range Interpretation Code Description Data Arabella rce(s) Supporting Document(s) GLUCOSE 72 mg/dL 74-106 L [facility] BLOOD UREA NITROGEN 14 mg/dL 7-18 [facility] CREATININE 0.83 mg/dL 0.6-1.0 [facility] SODIUM 138 mmol/L 136-145 [facility] POTASSIUM 4.5 mmol/L 3.5-5.1 [facility] CHLORIDE 104 mmol/L 98-107 [facility] CO2 27 mmol/L 21-32 [facility] CALCIUM 8.8 mg/dL 8.5-10.1 [facility] ANION GAP 7.0 mmol/L 5-12 [facility] GLOMERULAR FILTRATION RATE 77 mL/min [facility] GFR IS CALCULATED IN mL/min/1.73m2 JUDITH L FUNCTION: >90MILDLY DECREASED: 60-89MILDY TO MODERATELY DECREASED: 45-59 MODERATELY TO SEVERELY DECREASED: 30-44SEVERELY DECREASED: 15-29RENAL FAILURE: <15 AST 16 U/L 15-37 [facility] ALT 23 U/L 12-78 [facility] ALKALINE PHOSPHATASE 76 U/L 46-116 [facility] pital TOTAL BILIRUBIN 0.5 mg/dL 0.2-1.0 [facility] TOTAL PROTEIN 6.9 g/dl 6.4-8.2 [facility] ALBUMIN 3.5 gm/dL 3.4-5.0 [facility] ID Date Data Source Urinalysis, Routine 01/15/2021 12:00:00 AM EDT eCW1 ([facility] [place]) Name Value Range Interpretation Code Description Data Arabella rce(s) Supporting Document(s) Color of Urine Ellen Urine-Color eCW1 ([facility]) Microscopic Examination eCW1 ( [facility]) Specific gravity of Urine 1.025 Specific G ravity eCW1 ([facility]) Appearance of Urine Clear Appearance eCW1 ([facility]) pH of Urine by Test strip 5 pH eCW1 ([facility]) Glucose [Presence] in Urine NEG Glucose eCW1 ([facility]) Protein [Presence] in Urine by Test strip NEG Protein eCW1 ([facility]) Bilirubin.total [Presence] in Urine by Test strip NEG Bilirubin eCW1 ([facility]) Hemoglobin [Presence] in Urine by Test strip NEG Occult Blood eCW1 ([facility]) Nitrite [Presence] in Urine by Test strip NEG Nitrite, Urine eCW1 ([facility]) Urobilinogen [Mass/volume] in Urine by Test strip NEG Urobilinogen,Semi-Qn eCW1 ([facility]) Ketones [Presence] in Urine by Test strip NEG Ketones eCW1 ([facility]) Urinalysis Gross Exam eCW1 ([facility]) Leukocyte esterase [Presence] in Urine by Test strip NEG WBC Esterase eCW1 ([facility]) Procedure Social History Code Duration Value Status Description Data Source(s ) Smoking 05/05/2021 12:00:00 AM EDT Current Smoker completed Curre nt Smoker eCW1 ([facility]) Smoking 05/05/2021 12:00:00 AM EDT Current Smoker completed Curre nt Smoker eCW1 ([facility]) Smoking 05/05/2021 12:00:00 AM EDT Current Smoker completed Curre nt Smoker eCW1 ([facility]) Smoking 05/05/2021 12:00:00 AM EDT Current Smoker completed Curre nt Smoker eCW1 ([facility]) Smoking 05/05/2021 12:00:00 AM EDT Current Smoker completed Curre nt Smoker eCW1 ([facility]) Alcohol intake 05/02/2021 12:00:00 AM EDT Ex-drinker (finding) comp leted Ex- drinker (finding) [facility] Tobacco use and exposure 05/02/2021 12:00:00 AM EDT Never used co mpleted Never used [facility] Smoking 05/02/2021 12:00:00 AM EDT Former smoker completed Former smoker [facility] Alcohol intake 04/25/2021 12:00:00 AM EDT Ex-drinker (finding) comp leted Ex- drinker (finding) [facility] Smoking 03/10/2021 12:00:00 AM EDT Current Smoker completed Curre nt Smoker eCW1 ([facility]) Smoking 03/10/2021 12:00:00 AM EDT Current Smoker completed Curre nt Smoker eCW1 ([facility]) Smoking 03/10/2021 12:00:00 AM EDT Current Smoker completed Curre nt Smoker eCW1 ([facility]) Smoking 03/10/2021 12:00:00 AM EDT Current Smoker completed Curre nt Smoker eCW1 ([facility]) Smoking 03/10/2021 12:00:00 AM EDT Current Smoker completed Curre nt Smoker eCW1 ([facility]) Smoking 03/10/2021 12:00:00 AM EDT Current Smoker completed Curre nt Smoker eCW1 ([facility]) Smoking 02/21/2021 12:00:00 AM EDT Current Smoker completed Curre nt Smoker eCW1 ([facility]) Smoking 02/13/2021 12:00:00 AM EDT Current Smoker completed Curre nt Smoker eCW1 ([facility]) Smoking 01/31/2021 12:00:00 AM EDT Current Smoker completed Curre nt Smoker eCW1 ([facility]) Smoking 01/29/2021 12:00:00 AM EDT Current Smoker completed Curre nt Smoker eCW1 ([facility]) Smoking 01/29/2021 12:00:00 AM EDT Current Smoker completed Curre nt Smoker eCW1 ([facility]) Smoking 01/29/2021 12:00:00 AM EDT Current Smoker completed Curre nt Smoker eCW1 ([facility]) Smoking 01/15/2021 12:00:00 AM EDT Current Smoker completed Curre nt Smoker eCW1 ([facility]) Smoking 01/15/2021 12:00:00 AM EDT Current Smoker completed Curre nt Smoker eCW1 ([facility]) Smoking 01/15/2021 12:00:00 AM EDT Current Smoker completed Curre nt Smoker eCW1 ([facility]) Smoking 01/15/2021 12:00:00 AM EDT Current Smoker completed Curre nt Smoker eCW1 ([facility]) Smoking 01/15/2021 12:00:00 AM EDT Current Smoker completed Curre nt Smoker eCW1 ([facility]) 03/20/2021 12:00:00 AM EDT Smoker completed Smoker [facility] 03/20/2021 12:00:00 AM EDT Current smoker completed Curre nt smoker [facility] Vital Signs ID Date Data Source UNK Name Value Range Interpretation Code Description Data Source(s) Body temperature 36.22 Jayde 36.22 Jayde [facility] Respiratory rate 18 /min 18 /min [facility] Oxygen saturation in Arterial blood by Pulse oximetry 99 % 99 % [facility] Systolic blood pressure 107 mm[Hg] 107 mm[Hg] [facility] Diastolic blood pressure 63 mm[Hg] 63 mm[Hg] [facility] Heart rate 50 /min 50 /min [facility] Body height 174 cm 174 cm [facility] Body weight 77.111 kg 77.111 kg [facility] Body mass index (BMI) [Ratio] 25.47 kg/m2 25.47 kg/m2 [facility] Systolic blood pressure 104 mm[Hg] 104 mm[Hg] [facility] Diastolic blood pressure 70 mm[Hg] 70 mm[Hg] [facility] Heart rate 46 /min 46 /min [facility] Body temperature 36.17 Jayde 36.17 Jayde [facility] Respiratory rate 16 /min 16 /min [facility] Oxygen saturation in Arterial blood by Pulse oximetry 99 % 99 % [facility] Body height 172 cm 172 cm [facility] Body weight 80.287 kg 80.287 kg [facility] Body mass index (BMI) [Ratio] 27.14 kg/m2 27.14 kg/m2 [facility] Systolic blood pressure 92 mm[Hg] 92 mm[Hg] [facility] Diastolic blood pressure 59 mm[Hg] 59 mm[Hg] [facility] Heart rate 64 /min 64 /min [facility] Respiratory rate 16 /min 16 /min [facility] Oxygen saturation in Arterial blood by Pulse oximetry 97 % 97 % [facility] Body temperature 36.78 Jayde 36.78 Jayde [facility] Body height 172 cm 172 cm [facility] Body weight 82 kg 82 kg [facility] Body mass index (BMI) [Ratio] 27.72 kg/m2 27.72 kg/m2 [facility] Diastolic blood pressure 59 mm[Hg] 59 mm[Hg] DAVID ([facility]) Body height 69 [in_i] 69 [in_i] DAVID ([facility]) Body mass index (BMI) [Ratio] 26.5 kg/m2 26.5 k g/m2 DAVID ([facility]) Systolic blood pressure 97 mm[Hg] 97 mm[Hg] A THENA ([facility]) Body weight 179.2 [lb_av] 179.2 [lb_av] DAVID ([facility]) Diastolic blood pressure 59 mm[Hg] 59 mm[Hg] DAVID ([facility]) Body height 69 [in_i] 69 [in_i] DAVID ([facility]) Body mass index (BMI) [Ratio] 26.5 kg/m2 26.5 k g/m2 DAVID ([facility]) Systolic blood pressure 97 mm[Hg] 97 mm[Hg] A THENA ([facility]) Body weight 179.2 [lb_av] 179.2 [lb_av] DAVID ([facility]) Body height 68 [in_i] 68 [in_i] eCW1 ([facility]) Body weight 179.6 [lb_av] 179.6 [lb_av] eCW1 ([facility]) Body mass index (BMI) [Ratio] 27.31 kg/m2 27.31 kg/m2 eCW1 ([facility]) Body temperature 98.8 [degF] 98.8 [degF] eCW1 ( [facility]) Heart rate 86 /min 86 /min eCW1 [facility] Respiratory rate 18 /min 18 /min eCW1 ([facility]) Oxygen saturation in Arterial blood by Pulse oximetry 100 % 100 % eCW1 ([facility]) Body height 68 [in_i] 68 [in_i] eCW1 ([facility] [place]) Body weight 180.6 [lb_av] 180.6 [lb_av] eCW1 ([facility]) Body mass index (BMI) [Ratio] 27.46 kg/m2 27.46 kg/m2 eCW1 ([facility]) Body temperature 98.2 [degF] 98.2 [degF] eCW1 ( [facility]) Heart rate 92 /min 92 /min eCW1 ([facility] Respiratory rate 18 /min 18 /min eCW1 ([facility]) Oxygen saturation in Arterial blood by Pulse oximetry 100 % 100 % eCW1 ([facility]) Body height 68 [in_i] 68 [in_i] eCW1 ([facility] [place]) Body weight 182.4 [lb_av] 182.4 [lb_av] eCW1 ([facility]) Body mass index (BMI) [Ratio] 27.73 kg/m2 27.73 kg/m2 eCW1 ([facility]) Body temperature 98.4 [degF] 98.4 [degF] eCW1 ( [facility]) Heart rate 78 /min 78 /min eCW1 ([facility] Respiratory rate 18 /min 18 /min eCW1 ([facility]) Oxygen saturation in Arterial blood by Pulse oximetry 98 % 98 % eCW1 ([facility]) ID Date Data Source [id number] 03/22/2021 08:28:35 PM EDT [facility] Name Value Range Interpretation Code Description Data Source(s) TRANSFER FROM [facility] Patient Treatment Plan of Care Planned Activity Planned Date Details Description Data Source (s) lamotrigine 25 MG Oral Tablet 05/21/2021 12:00:00 AM EDT eCW1 ([facility]) lamotrigine 25 MG Oral Tablet 05/21/2021 12:00:00 AM EDT eCW1 ([facility]) Acetaminophen 325 MG / Hydrocodone Bitartrate 7.5 MG O ral Tablet 05/04/2021 12:00:00 AM EDT [facility] Misoprostol 0.2 MG Oral Tablet 05/04/2021 12:00:00 AM EDT [facility] Methylcellulose 500 MG Oral Tablet 03/27/2021 12:00:00 AM EDT [facility] Lactobacillus rhamnosus GG [id number] UNT Oral Capsul e 03/27/2021 12:00:00 AM EDT [facility] brexpiprazole 2 MG Oral Tablet [Rexulti] 03/19/2021 12:00:00 AM EDT eCW1 ([facility]) brexpiprazole 2 MG Oral Tablet [Rexulti] 03/19/2021 12:00:00 AM EDT eCW1 ([facility]) brexpiprazole 2 MG Oral Tablet [Rexulti] 03/19/2021 12:00:00 AM EDT eCW1 ([facility]) brexpiprazole 2 MG Oral Tablet [Rexulti] 03/19/2021 12:00:00 AM EDT eCW1 ([facility]) brexpiprazole 2 MG Oral Tablet [Rexulti] 03/19/2021 12:00:00 AM EDT eCW1 ([facility]) brexpiprazole 1 MG Oral Tablet [Rexulti] 03/19/2021 12:00:00 AM EDT eCW1 ([facility]) brexpiprazole 1 MG Oral Tablet [Rexulti] 03/19/2021 12:00:00 AM EDT eCW1 ([facility]) brexpiprazole 1 MG Oral Tablet [Rexulti] 03/19/2021 12:00:00 AM EDT eCW1 ([facility]) brexpiprazole 1 MG Oral Tablet [Rexulti] 03/19/2021 12:00:00 AM EDT eCW1 ([facility]) Prazosin 1 MG Oral Capsule 02/13/2021 12:00:00 AM EDT eCW1 ([facility]) Prazosin 1 MG Oral Capsule 02/13/2021 12:00:00 AM EDT eCW1 ([facility]) [place] Carbonate 300 MG Oral Capsule 02/13/2021 12:00:00 AM EDT eCW1 ([facility]) Prazosin 1 MG Oral Capsule 02/13/2021 12:00:00 AM EDT eCW1 ([facility]) Levothyroxine Sodium 0.025 MG Oral Tablet 01/29/2021 12:00:00 AM ED T eCW1 ([facility]) 0.3 ML Epinephrine 1 MG/ML Auto-Injector [Epipen] 01/29/2021 12: 00:00 AM EDT eCW1 ([facility]) Levothyroxine Sodium 0.025 MG Oral Tablet 01/29/2021 12:00:00 AM ED T eCW1 ([facility]) 0.3 ML Epinephrine 1 MG/ML Auto-Injector [Epipen] 01/29/2021 12: 00:00 AM EDT eCW1 ([facility]) Levothyroxine Sodium 0.025 MG Oral Tablet 01/29/2021 12:00:00 AM ED T eCW1 ([facility]) 0.3 ML Epinephrine 1 MG/ML Auto-Injector [Epipen] 01/29/2021 12: 00:00 AM EDT eCW1 ([facility]) Misoprostol 0.2 MG Oral Tablet 08/04/2019 12:00:00 AM [facility] ferrous sulfate 325 MG Oral Tablet [facility] gabapentin 600 MG Oral Tablet [facility] quetiapine 25 MG Oral Tablet [Seroquel] DAVID ([facility]) Mirtazapine 15 MG Oral Tablet [Remeron] DAVID ([facility]) OneTouch Delica Lancets ATHE NA ([facility]) One Touch II Test strips ATH TENZIN ([facility]) [place] Carbonate 300 MG Oral Capsule DAVID ([facility]) Hair, Skin and Nails Advanced DAVID ([facility]) Biotin 10 MG Oral Tablet ATH TENZIN ([facility]) quetiapine 25 MG Oral Tablet [Seroquel] DAVID ([facility]) Mirtazapine 15 MG Oral Tablet [Remeron] DAVID ([facility]) OneTouch Delica Lancets ATHE NA ([facility]) One Touch II Test strips ATH TENZIN ([facility]) [place] Carbonate 300 MG Oral Capsule DAVID ([facility]) Hair, Skin and Nails Advanced DAVID ([facility]) Biotin 10 MG Oral Tablet ATH TENZIN ([facility])
[2021-06-11] MEDS ORDERED: MORPHINE 4 MG/ML 1ML VIAL/SYRINGE (J2270) IV ONE (19:40)
[2021-06-11] MEDS ORDERED: ONDANSETRON 4MG/2ML VIAL IV ONE (19:40)
[2021-06-11] MEDS ORDERED: NS 1,000 ML IV ONE (20:00)
[2021-06-11 20:49] LABS: BASO # 0.1 10^3/uL (0.0-0.2); BASO % 0.7 % (0.0-1.0); EOS # 0.2 10^3/uL (0.0-0.5); EOS % 1.3 % (0.0-3.0); HEMATOCRIT 38.9 % (36.0-47.0); HEMOGLOBIN 12.1 g/dl (12.0-15.5); LYMPH # 3.8 10^3/uL (1.5-5.0); LYMPH % 32.7 % (24.0-44.0); MEAN CORPUSCULAR HEMOGLOBIN 27.2 pg (27.0-33.0); MEAN CORPUSCULAR HGB CONC 31.1 g/dl (32.0-36.5); MEAN CORPUSCULAR VOLUME 87.4 fl (80.0-96.0); MONO # 0.9 10^3/uL (0.0-0.8); MONO % 8.1 % (2.0-8.0); NEUTROPHILS # 6.6 10^3/uL (1.5-8.5); NEUTROPHILS % 56.9 % (36.0-66.0); PLATELET COUNT, AUTOMATED 344 10^3/uL (150-450); RED BLOOD COUNT 4.45 10^6/uL (4.00-5.40); WHITE BLOOD COUNT 11.6 10^3/uL (4.0-10.0)
[2021-06-11 21:30] LABS: ALT/SGPT 50 U/L (12-78); BILIRUBIN,DIRECT < 0.1 MG/DL (0.0-0.2); BILIRUBIN,TOTAL 0.8 MG/DL (0.2-1.0); LIPASE 221 U/L (73-393); TOTAL PROTEIN 8.9 GM/DL (6.4-8.2)
[2021-06-11] MEDS ORDERED: HYDROMORPHONE HCL 0.5 MG/ 0.5 ML SYRINGE (J1170 PER 1) IV PRN (21:40)
[2021-06-11 22:48] VITALS: BP 112/61
== END 2021-06-11 22:54 | disposition short-term general hospital (02) ==
LOC: M ED 17:50
DX: K92.2 Gastrointestinal hemorrhage, unspecified (principal); F17.200 Nicotine dependence, unspecified, uncomplicated; Z79.890 Hormone replacement therapy; Z79.899 Other long term (current) drug therapy; Z91.048 Other nonmedicinal substance allergy status; Z88.8 Allergy status to other drugs, medicaments and biological substances; Z91.030 Bee allergy status; Z90.49 Acquired absence of other specified parts of digestive tract; Z98.890 Other specified postprocedural states
CPT/HCPCS: 80047; 80076; 83605; 83690; 85025; 87040; 96361; 96374; 96375; 99283; J1170; J2270; J2405; U0002

== ENCOUNTER 2021-06-20 17:09 | Emergency (ER) | payer MEDICARE, MEDICAID ==
[~2021-06-20 17:09] MED LIST changes: +LAMO25TA4 PO; +MIRT1TAB PO; -PRAZ1CAP; +PRAZ1CAP PO
--- OUTSIDE RECORDS SUMMARY | 2021-06-20 17:20 | CCD | Continuity of Care Document ---
Author Organization Unknown Address Unknown Phone Unavailable Care Team Providers Care Battery Test Engineer Name Role Phone Abida Gomez PA-C AUT [phone] Problems Description No Information Available Social History Type Date Description Comments Sex Unknown Allergies and adverse reactions Description No Information Available Medications Description No Information Available Immunizations Description No Information Available Vital Signs Description No Information Available Results Test Acquired Date Facility Test Result H/L Range Note CMP 03/10/2021 [facility] Albumin Serum/Plasma 3.5 Alt - SGPT 20 Calcium Ser/Plasma Mass/Vol 8.7 Carbon Dioxide Ser/Plasm 27 Chloride Serum/Plasma 104 Alkaline Phosphatase 80 Potassium 4.2 Protein Total 7.8 Sodium 138 Ast - Sgot 15 BUN - Urea Nitrogen 11 Glucose 89 Creatinine For GFR 0.85 Laboratory test finding 03/10/2021 [facility] Troponin <4.0 0-60.4 CBC without Differential 03/10/2021 [facility] White Blood Count 6.9 Red Blood Count 4.05 Platelets 360 Hemoglobin 10.4 Hematocrit 33.2 Laboratory test finding 03/10/2021 [facility] CPK-MB 1.3 Thyroid Stimulating Hormone 27.184 High 0.360-3.740 Free T4 0.4 Tibc/Iron/% Saturation 03/10/2021 [facility] Iron 38 Tibc 429 Tibc % Saturation 9 Laboratory test finding 03/10/2021 [facility] Ferritin 7 Procedures Description No Information Available Medical Devices Description No Information Available Encounters Description No Information Available Assessments Description No Information Available Plan of Treatment Future Appointment(s):* 06/16/2021 2:30 pm - Garret Ruano MD at Main Office Functional Status Description No Information Available Mental Status Description No Information Available Referrals Description No Information Available
--- OUTSIDE RECORDS SUMMARY | 2021-06-20 17:25 | CCD ---
Author Author [facility] Organization [facility] Address Unknown Phone Unavailable Care Team Providers Care Reducing Salon Attendant Name Role Phone Pam Baires Unavailable Pam Baires Unavailable Pam Baires Unavailable Pam Baires Unavailable Dequan, Pam Unavailable Dequan, Pam Unavailable Dequan, Pam Unavailable Dequan, Pam Unavailable AP FAIR, CARI Unavailable Unavailable TOÑITO FAIR, LAURA SALAZAR Unavailable Unavailable SYMENOW, G CHRISTOPHER PA Unavailable [...] Unavailable Unavailable Mac, Ragini Unavailable Unavailable MELVINAJEFE Ellis MD Unavailable Unavailable [...] Unavailable Unavailable JEFE HEIN MD Unavailable Unavailable MELVINAJEFE Ellis MD Unavailable Unavailable MELVINAJEFE Ellis MD Unavailable Unavailable JEFE HEIN MD Unavailable Unavailable MondomCari MD Unavailable Unavailable MondomCari MD Unavailable Unavailable MonCari alvarez MD Unavailable Unavailable MonCari alvarez MD Unavailable Unavailable Cari De Souza MD Unavailable Unavailable Cari De Souza MD Unavailable Unavailable Cari De Souza MD Unavailable Unavailable MonCari alvarez MD Unavailable Unavailable FREDERICK GOODWIN MD Unavailable [...] Unavailable GOMEZ, L DENNISE PA Unavailable Unavailable GMOEZ, L DENNISE PA Unavailable Unavailable GOMEZ, L [...] Unavailable GOMEZ, L DENNISE PA Unavailable Unavailable BILL GARNICA MD Unavailable Unavailable WINSTON QUIROGA MD Unavailable [...] PA Unavailable [facility] Unavailable Unavailable COPEROSA II , ANAYELI Unavailable Unavailable KEEGAN FAIR, BRAYAN Unavailable Unavailable Cesario BADILLO II, MD Unavailable Unavailable Cesario BADILLO II, MD Unavailable Unavailable PANRASHAWN SIMMONS PA Unavailable Unavailable PANRASHAWN PA Unavailable Unavailable PANRASHAWN PA Unavailable Unavailable PANRASHAWN MADIHA PA Unavailable Unavailable PANRASHAWN PA Unavailable Unavailable PAN, RASHAWN CRAFT PA Unavailable Unavailable PAN, RASHAWN MADIHA PA Unavailable Unavailable PAN, RASHAWN MADIHA PA Unavailable Unavailable PAN, RASHAWN MADIHA PA Unavailable Unavailable PAN, RASHAWN MADIHA PA Unavailable Unavailable PAN, RASHAWN MADIHA PA Unavailable Unavailable PAN, RASHAWN MADIHA PA Unavailable Unavailable PAN, RASHAWN MADIHA PA Unavailable Unavailable PAN, RASHAWN MADIHA PA Unavailable Unavailable PAN, RASHAWN MADHIA PA Unavailable Unavailable PAN, RASHAWN MADIHA PA [...] Unavailable Unavailable PATI, CAMILA DO Unavailable Unavailable APTI, CAMILA DO Unavailable Unavailable PATI, CAMILA DO [...] Harley PA-C Unavailable Eddie, Harley PA-C Unavailable Eddie Harley PA-C Unavailable MORAES, EDIS FABIEN RPA-C [...] MORAES, EDIS FABIEN RPA-C Unavailable Unavailable MORAES, EDSI FABIEN RPA-C Unavailable Unavailable MORAES, EDIS FABIEN [...] EDIS FABIEN RPA-C Unavailable Unavailable MORAES, EDIS FAIBEN RPA-C Unavailable Unavailable MORAES, EDIS FABIEN RPA-C [...] Unavailable Unavailable Jeff JrFly MD Unavailable Unavailable Jfef JrFly MD Unavailable Unavailable Jeff JrFly MD [...] Unavailable Martinez Conradav Unavailable Unavailable Anamaria, Jonn MD Unavailable Unavailable [...] Unavailable Unavailable Anamaria Jonn MD Unavailable Unavailable Anamaria Jonn Unavailable Unavailable Martinez Conradav Unavailable Unavailable Martinez Conradav Unavailable Unavailable Martinez Conradav Unavailable Unavailable Essence, Nell Cortes MD Unavailable [...] is protected by Article 27-F of the [facility] Public Health law. If you continue you may have access to information: Regarding HIV / AIDS; Provided by facilities licensed or operated by the [facility] Office of Mental Health; or Provided by the [facility] Office for People With Developmental Disabilities. If such information is present, then the following [facility] mandated warning applies: This information has [...] law may result in a fine or shelter sentence or both. A general authorization for the release of medical or other information is NOT sufficient authorization for further disc losure. Allergies and Adverse Reactions Type Description Substance Reaction Status Data Source(s ) Propensity to adverse reactions NO ALLERGIES ON FILE NO ALLERGIES ON FILE [facility] Propensity to adverse reactions LEVONORGESTREL-ETHINYL ESTRA D LEVONORGESTREL- ETHINYL ESTRAD Unknown [facility] Propensity to adverse reactions BEE VENOM PROTEIN (HONEY BEE) Ho huseyin bee venom Other Unknown [facility] Propensity to adverse reactions RIZATRIPTAN rizatriptan Swelling High [facility] Propensity to adverse reactions AMITRIPTYLINE Amitriptyline Swelling High [facility] Allergy to substance Severe Amitriptyline Hallucinations DAVID ([facility]) Allergy to substance Severe Amitriptyline Hallucinations DAVID ([facility]) Family History Family Member Name Family Member Gender Family Member Status Date o f Status Description Data Source(s) Unknown Female Condition Family Member Diabetes B on [facility] Unknown Female Condition Family Member Cancer B on [facility] Unknown Female Condition Family Member Hypertension Bon [facility] Encounters Encounter Providers Location Date Indications Data Source(s ) INPATIENT Attender: BILL GARNICA MD 5F-OR 06/13/2021 10:36:35 AM EDT [facility] Inpatient Attender: Rashawn Lowry MDAdmitter: Rashawn summers MD 5F-1E 06/12/2021 01:00:00 AM EDT [facility] Patient admitted. Outpatient Attender: GWEN DEVIRUTH 06/04/2021 10:00: 00 AM [facility] Outpatient Attender: Ragini Watts 06/04/2021 09:01:00 AM EDT [facility] Outpatient [facility] 05/27/2021 12:00:00 AM EDT eCW1 ([facility]) Outpatient [facility] 05/27/2021 12:00:00 AM EDT eCW1 ([facility]) Outpatient Attender: [facility] 05/21/2021 10:00: 00 AM EDT [facility] Outpatient Attender: Ragini Mac 05/20/2021 01:00:00 PM EDT [facility] Outpatient [facility] 05/16/2021 12:00:00 AM EDT eCW1 ([facility]) [facility]: [facility] 05/05/2021 02:00: 00 PM EDT [facility] Outpatient [facility] 05/05/2021 12:00:00 AM EDT eCW1 ([facility]) Outpatient [facility] 05/05/2021 12:00:00 AM EDT eCW1 ([facility]) INPATIENT Attender: Jonn Conrad MDAtten leo: CAMILA KRUEGER DOAttender: SANDEEP BAZAN MDAdmitter: SANDEEP BAZAN MDConsultant: Kashif Aguilar JrConsultant: Rashawn Lowry MD 5F-1E 05/01/2021 10:26:00 PM EDT - 05/04/2021 04:32:00 PM EDT [facility] Patient discharged. INPATIENT Attender: JEFE HEIN MDAtten leo: Jonn Conrad MDAttender: Cari De Souza MDAttender: CARI DE SOUZA MDAdmitter: Jonn Conrad MDConsultant: Rashawn Lowry MDConsultant: ANAYELI BADILLO IIConsultant: ANAYELI BADILLO II MDConsultant: Kevin Cervantes 5F-1E 04/25/2021 12:14:00 PM EDT - 04/28/2021 06:00:00 PM EDT [facility] Patient discharged. Emergency Attender: MADIHA Lechugaer: Ventura Gomez PA-C EMERGENCY ROOM-ER 04/24/2021 11:49:00 PM EDT - 04/25/2021 09:55:00 AM EDT [facility] Patient discharged. Outpatient Attender: PROVIDER DEFAULT 04/20/2021 04:35:45 PM EDT [facility] Outpatient [facility] 04/15/2021 12:00:00 AM EDT eC ([facility]) Emergency Attender: Harley AGUILRACReferrer: Scott Gomez PA-C EMERGENCY ROOM-ER 04/12/2021 09:19:00 PM EDT - 04/13/2021 01:29:00 AM EDT [facility] Patient discharged. Outpatient Attender: Harley AGUILARCConsultant: [id number] 04/12/2021 09:06:00 PM EDT [facility] Outpatient Attender: GWEN [facility]AN [facility] 04/09/2021 10:00: 00 AM [facility] [id number] [facility] [address], [facility] [place] [address], Ph. Attender: David Willard MD [place] - [facility] - [facility] Office 04/07/2021 12:00:00 AM EDT DAVID ([facility]) David Willard MD: [id number] [facility] [address], [facility] [place] [address], Ph. [phone] Attender: David Willard MD [facility] - [facility] 04/02/2021 12:00:00 AM EDT DAVID ([facility]) Outpatient [facility] 03/28/2021 12:00:00 AM EDT eCW1 ([facility]) Outpatient [facility] 03/28/2021 12:00:00 AM EDT eCW1 ([facility]) INPATIENT Attender: FREDERICK GOODWIN MD 5F-GX 03/26/2021 05:43:40 PM EDT [facility] INPATIENT Attender: BRAYAN ALLISON MD 5F-GX 03/25/2021 09:53:3 9 AM EDT [facility] INPATIENT Attender: CARI DE SOUZA MDA ttender: Cair De Souza MDAttender: WINSTON QUIROGA MDAttender: Jonn Conrad MDAttender: MARTIN SIBLEY MDAttender: Martin Sibley MDAdmitter: Jonn Conrad MDConsultant: Rashawn Lowry MDConsultant: Kevin Cervantes 5F-1E 03/23/2021 03:25:00 PM E DT - 03/27/2021 04:11:00 PM EDT [facility] Patient discharged. Outpatient [id number] 03/22/2021 08:11:00 PM EDT [facility] Emergency Attender: WILLIE CISNEROSeferrer: Scott Gomez PA-C EMERGENCY ROOM-ER 03/22/2021 03:34:00 PM EDT - 03/23/2021 12:40:00 PM EDT [facility] Patient discharged. Outpatient Attender: GWEN JEAN FPRUTH 03/19/2021 09:49: 00 AM EDT [facility] Outpatient Attender: Abida AGUILARCReferrer: Abida Gomez PA-C 03/19/2021 08:00:00 AM EDT [facility] David Willard MD: [id number], [facility] [place] [address], Ph. Attender: David PORTER - [facility] - [facility] Office 03/18/2021 12:00:00 AM EDT DAVID ([facility]) David Willard MD: [id number], [facility] [place] [address], Ph. Attender: David PORTER [facility] - [facility] Office 03/18/2021 12:00:00 AM EDT DAVID ([facility]) Preadmit Attender: Abida Gomez PA-C 03/14/2021 08:00 :00 AM EDT [facility] Outpatient [facility] 03/12/2021 12:00:00 AM EDT W ([facility]) Outpatient [facility] 03/11/2021 12:00:00 AM EDT eCW1 ([facility]) Outpatient Attender: GWEN JEAN FPMHNPReferrer: Ventura Gomez PA-C EMERGENCY ROOM-LAB 03/10/2021 03:46:00 PM EDT - 03/10/2021 03:46:00 PM EDT [facility] Outpatient Attender: Abida Sherwoodferrer: Abida Gomez [facility] 03/10/2021 02:37:00 PM EDT - 03/10/2021 02:37:00 PM EDT [facility] Outpatient [facility] 03/10/2021 12:00:00 AM EDT eCW1 ([facility]) Outpatient [facility] 03/03/2021 12:00:00 AM EDT eCW1 ([facility]) Outpatient Attender: GWEN JEAN FPMHRUTH 02/13/2021 01:00: 00 PM EDT [facility] Outpatient [facility] 02/11/2021 12:00:00 AM EDT eCW1 ([facility]) Outpatient [facility] 02/04/2021 12:00:00 AM EDT eCW1 ([facility]) Outpatient Attender: JUVE FOOTE PA-C 01/31/2021 11:00:00 AM EDT [facility] Outpatient [facility] 01/30/2021 12:00:00 AM EDT eCW1 ([facility]) Outpatient [facility] 01/30/2021 12:00:00 AM EDT eCW1 ([facility]) Outpatient Attender: Pam BairesReferrer: [facility] EMERGENCY [facility] 01/29/2021 01:00:00 PM EDT - 01/29/2021 01:00:00 PM EDT [facility] Outpatient Attender: Ragini Watts 01/29/2021 10:00:00 AM EDT [facility] Outpatient [facility] 01/29/2021 12:00:00 AM EDT eCW1 ([facility]) Outpatient [facility] 01/22/2021 12:00:00 AM EDT eCW1 ([facility]) Outpatient [facility] 01/21/2021 12:00:00 AM EDT eCW1 ([facility]) Outpatient [facility] 01/16/2021 12:00:00 AM EDT eCW1 ([facility]) Outpatient Attender: Pam Daniels: [facility] EM[facility] 01/15/2021 08:03:00 AM EDT - 01/15/2021 08:03:00 AM EDT [facility] Outpatient [facility] 01/15/2021 12:00:00 AM EDT eCW1 ([facility]) Outpatient [facility] 01/15/2021 12:00:00 AM EDT eCW1 ([facility]) Emergency Attender: WILLIE Lozada: [facility] EMERGENCY ROOM-ER 06/04/2019 12:15:00 PM EDT - 06/04/2019 03:18:00 PM EDT [facility] Patient discharged. Emergency Attender: DENNISE Lozada: [facility] EMERGENCY ROOM-ER 05/10/2019 06:22:00 AM EDT - [facility]ender: MADIHA MANUEL EMERGENCY ROOM-ER 01/17/2018 12:13:00 AM EDT - 01/17/2018 02:40:00 AM [facility] Emergency Attender: MADIHA MANUEL EMERGENCY ROOM-ER 11/22/2017 09:40:00 PM EDT - 11/23/2017 02:25:00 AM [facility] Emergency Attender: WILLIE MANUEL EMERGENCY ROOM-ER 11/07 02:49:00 PM EDT - 11/19/2017 [facility]:38:[facility] DENNISE MANUEL EMERGENCY ROOM-ER 08:49:00 PM EST - 09/30/2017 12:27:00 AM [facility] Outpatient Attender: [facility] EMERGENCY ROOM-LAB 0 08/25/2017 04:16:00 PM EST - 08/25/2017 04:16:00 PM [facility] Emergency Attender: OSKAR MANUEL EMERGENCY ROOM- ER 04/13/2017 09:15:00 PM EDT - 04/14/2017 01:54:00 AM EDT [facility] Emergency Attender: DENNISE MANUEL EMERGENCY ROOM-ER 09:02:00 PM EDT - 03/21/2017 01:55:00 AM EDT [facility] Emergency Attender: MADIHA MANUEL EMERGENCY ROOM-ER 12/30/2016 09:12:00 PM EDT - 12/31/2016 01:50:00 AM EDT [facility] Medications Medication Brand Name Start Date Product Form Dose Route Admi nistrative Instructions Pharmacy Instructions Status Indications Reaction Description Data Source(s) lamotrigine 25 MG Oral Tablet lamoTRIgine 25 MG lamoTRIgine 25 MG 05/21/2021 12:00:00 AM EDT 1.0 {tablet} active la moTRIgine 25 MG eCW1 ([facility]) lamotrigine 25 MG Oral Tablet lamoTRIgine 25 MG lamoTRIgine 25 MG 05/21/2021 12:00:00 AM EDT 1.0 {tablet} active la moTRIgine 25 MG eCW1 ([facility]) Acetaminophen 325 MG / Hydrocodone Nury trate 7.5 MG Oral Tablet HYDROcodone- acetaminophen (NORCO) 7.5-325 mg per tablet HYDROcodone-acetaminophen (NORCO) 7.5-325 mg per tablet 05/04/2021 12:00:00 AM EDT 1 {tbl} oral active Take 1 tablet by mouth every 6 (six) hours if needed for moderate pain or severe pain for up to 3 doses. [facility] Misoprostol 0.2 MG Oral Tablet miSOPROStoL (CYTOTEC) 2 00 mcg tablet miSOPROStoL (CYTOTEC) 200 mcg tablet 05/04/2021 12:00:00 AM EDT 200 ug oral active Take 1 tablet (200 mcg total) by mouth 4 (four) times a day. [facility] Methylcellulose 500 MG Oral Tablet methy lcellulose, laxative, (CITRUCEL) 500 mg tablet methylcellulose, laxative, (CITRUCEL) 500 mg tablet 12:00:00 AM EDT 1000 mg oral aborted Take 2 t ablets (1,000 mg total) by mouth 2 (two) times a day. [facility] Lactobacillus rhamnosus GG [id number] U NT Oral Capsule lactobacillus rhamnosus (PROBIOTIC EXTRA STRENGTH) 20 billion cell capsule lactobacillus rhamnosus (PROBIOTIC EXTRA STRENGTH) 20 billion cell capsule 03/27/2021 12:00:00 AM EDT 1 {capsule} oral aborted Take 1 capsule by [facility] 1 (one) time each day. [facility] brexpiprazole 1 MG Oral Tablet [Rexulti] Rexulti 1 MG Rexult i 1 MG 03/19/2021 12:00:00 AM EDT 1.0 {tablet} active Re xulti 1 MG eCW1 ([facility]) brexpiprazole 2 MG Oral Tablet [Rexulti] Rexulti 2 MG Rexult i 2 MG 03/19/2021 12:00:00 AM EDT 1.0 {tablet} active Re xulti 2 MG eCW1 ([facility]) brexpiprazole 1 MG Oral Tablet [Rexulti] Rexulti 1 MG Rexult i 1 MG 03/19/2021 12:00:00 AM EDT 1.0 {tablet} active Re xulti 1 MG eCW1 ([facility]) brexpiprazole 2 MG Oral Tablet [Rexulti] Rexulti 2 MG Rexult i 2 MG 03/19/2021 12:00:00 AM EDT 1.0 {tablet} active Re xulti 2 MG eCW1 ([facility]) brexpiprazole 1 MG Oral Tablet [Rexulti] Rexulti 1 MG Rexult i 1 MG 03/19/2021 12:00:00 AM EDT 1.0 {tablet} active Re xulti 1 MG eCW1 ([facility]) brexpiprazole 1 MG Oral Tablet [Rexulti] Rexulti 1 MG Rexult i 1 MG 03/19/2021 12:00:00 AM EDT 1.0 {tablet} active Re xulti 1 MG eCW1 ([facility]) brexpiprazole 2 MG Oral Tablet [Rexulti] Rexulti 2 MG Rexult i 2 MG 03/19/2021 12:00:00 AM EDT 1.0 {tablet} active Re xulti 2 MG eCW1 ([facility]) brexpiprazole 2 MG Oral Tablet [Rexulti] Rexulti 2 MG Rexult i 2 MG 03/19/2021 12:00:00 AM EDT 1.0 {tablet} active Re xulti 2 MG eCW1 ([facility]) brexpiprazole 1 MG Oral Tablet [Rexulti] Rexulti 1 MG Rexult i 1 MG 03/19/2021 12:00:00 AM EDT 1.0 {tablet} active Re xulti 1 MG eCW1 ([facility]) brexpiprazole 2 MG Oral Tablet [Rexulti] Rexulti 2 MG Rexult i 2 MG 03/19/2021 12:00:00 AM EDT 1.0 {tablet} active Re xulti 2 MG eCW1 ([facility]) [employer] Carbonate 300 MG Oral Capsule [employer] Carbonate 300 MG 02/13/2021 12:00:00 AM EDT 1.0 {capsule} suspended [employer] Carbonate 300 MG eCW1 ([facility]) [employer] Carbonate 300 MG Oral Capsule [employer] Carbonate 300 MG 02/13/2021 12:00:00 AM EDT 1.0 {capsule} suspended [employer] Carbonate 300 MG eCW1 ([facility]) Prazosin 1 MG Oral Capsule Prazosin HCl 1 MG Prazosin HCl 1 MG 02/13/2021 12:00:00 AM EDT 1.0 {capsule_at_bedtime} active Prazosin HCl 1 MG eCW1 ([facility]) [employer] Carbonate 300 MG Oral Capsule [employer] Carbonate 300 MG 02/13/2021 12:00:00 AM EDT 1.0 {capsule} suspended [employer] Carbonate 300 MG eCW1 ([facility]) [employer] Carbonate 300 MG Oral Capsule [employer] Carbonate 300 MG 02/13/2021 12:00:00 AM EDT 1.0 {capsule} suspended [employer] Carbon[employer] 300 MG eCW1 ([facility]) Prazosin 1 MG Oral Capsule Prazosin HCl 1 MG Prazosin HCl 1 MG 02/13/2021 12:00:00 AM EDT 1.0 {capsule_at_bedtime} active Prazosin HCl 1 MG eCW1 ([facility]) [employer] Carbonate 300 MG Oral Capsule [employer] Carbonate 300 MG 02/13/2021 12:00:00 AM EDT 1.0 {capsule} active L ithium Carbonate 300 MG eCW1 ([facility]) [employer] Carbonate 300 MG Oral Capsule [employer] Carbonate 300 MG 02/13/2021 12:00:00 AM EDT 1.0 {capsule} active L ithium Carbonate 300 MG eCW1 ([facility]) [employer] Carbonate 300 MG Oral Capsule [employer] Carbonate 300 MG 02/13/2021 12:00:00 AM EDT 1.0 {capsule} suspended [employer] Carbonate 300 MG eCW1 ([facility]) Prazosin 1 MG Oral Capsule Prazosin HCl 1 MG Prazosin HCl 1 MG 02/13/2021 12:00:00 AM EDT 1.0 {capsule_at_bedtime} active Prazosin HCl 1 MG eCW1 ([facility]) [employer] Carbonate 300 MG Oral Capsule [employer] Carbon[employer] 300 MG 02/13/2021 12:00:00 AM EDT 1.0 {capsule} suspended [employer] Carbon[employer] 300 MG eCW1 ([facility]) Prazosin 1 MG Oral Capsule Prazosin HCl 1 MG Prazosin HCl 1 MG 02/13/2021 12:00:00 AM EDT 1.0 {capsule_at_bedtime} active Prazosin HCl 1 MG eCW1 ([facility]) Prazosin 1 MG Oral Capsule Prazosin HCl 1 MG Prazosin HCl 1 MG 02/13/2021 12:00:00 AM EDT 1.0 {capsule_at_bedtime} active Prazosin HCl 1 MG eCW1 ([facility]) Prazosin 1 MG Oral Capsule Prazosin HCl 1 MG Prazosin HCl 1 MG 02/13/2021 12:00:00 AM EDT 1.0 {capsule_at_bedtime} active Prazosin HCl 1 MG eCW1 ([facility]) [employer] Carbonate 300 MG Oral Capsule [employer] Carbon[employer] 300 MG 02/13/2021 12:00:00 AM EDT 1.0 {capsule} suspended [employer] Carbon[employer] 300 MG eCW1 ([facility]) Prazosin 1 MG Oral Capsule Prazosin HCl 1 MG Prazosin HCl 1 MG 02/13/2021 12:00:00 AM EDT 1.0 {capsule_at_bedtime} active Prazosin HCl 1 MG eCW1 ([facility]) Prazosin 1 MG Oral Capsule Prazosin HCl 1 MG Prazosin HCl 1 MG 02/13/2021 12:00:00 AM EDT 1.0 {capsule_at_bedtime} active Prazosin HCl 1 MG eCW1 ([facility]) [employer] Carbonate 300 MG Oral Capsule [employer] Carbonate 300 MG 02/13/2021 12:00:00 AM EDT 1.0 {capsule} suspended [employer] Carbonate 300 MG eCW1 ([facility]) Prazosin 1 MG Oral Capsule Prazosin HCl 1 MG Prazosin HCl 1 MG 02/13/2021 12:00:00 AM EDT 1.0 {capsule_at_bedtime} active Prazosin HCl 1 MG eCW1 ([facility]) Prazosin 1 MG Oral Capsule Prazosin HCl 1 MG Prazosin HCl 1 MG 02/13/2021 12:00:00 AM EDT 1.0 {capsule_at_bedtime} active Prazosin HCl 1 MG eCW1 ([facility]) Prazosin 1 MG Oral Capsule Prazosin HCl 1 MG Prazosin HCl 1 MG 02/13/2021 12:00:00 AM EDT 1.0 {capsule_at_bedtime} active Prazosin HCl 1 MG eCW1 ([facility]) [employer] Carbonate 300 MG Oral Capsule [employer] Carbon[employer] 300 MG 02/13/2021 12:00:00 AM EDT 1.0 {capsule} suspended [employer] Carbon[employer] 300 MG eCW1 ([facility]) Prazosin 1 MG Oral Capsule Prazosin HCl 1 MG Prazosin HCl 1 MG 02/13/2021 12:00:00 AM EDT 1.0 {capsule_at_bedtime} active Prazosin HCl 1 MG eCW1 ([facility]) [employer] Carbonate 300 MG Oral Capsule [employer] Carbon[employer] 300 MG 02/13/2021 12:00:00 AM EDT 1.0 {capsule} suspended [employer] Carbon[employer] 300 MG eCW1 ([facility]) Prazosin 1 MG Oral Capsule Prazosin HCl 1 MG Prazosin HCl 1 MG 02/13/2021 12:00:00 AM EDT 1.0 {capsule_at_bedtime} active Prazosin HCl 1 MG eCW1 ([facility]) [employer] Carbonate 300 MG Oral Capsule [employer] Carbon[employer] 300 MG 02/13/2021 12:00:00 AM EDT 1.0 {capsule} suspended [employer] 300 MG eCW1 ([facility]) 0.3 ML Epinephrine 1 MG/ML Auto-Injector [Epipen] EpiP en 2-Jacquelyn 0.3 MG/0.3ML EpiPen 2-Jacquelyn 0.3 MG/0.3ML 01/29/2021 12:00:00 AM EDT active EpiPen 2-Jacquelyn 0.3 MG/0.3ML eCW1 ([facility] louise) 0.3 ML Epinephrine 1 MG/ML Auto-Injector [Epipen] EpiP en 2-Jacquelyn 0.3 MG/0.3ML EpiPen 2-Jacquelyn 0.3 MG/0.3ML 01/29/2021 12:00:00 AM EDT active EpiPen 2-Jacquelyn 0.3 MG/0.3ML eCW1 ([facility]ise) 0.3 ML Epinephrine 1 MG/ML Auto-Injector [Epipen] EpiP en 2-Jacquelyn 0.3 MG/0.3ML EpiPen 2-Jacquelyn 0.3 MG/0.3ML 01/29/2021 12:00:00 AM EDT active EpiPen 2-Jacquelyn 0.3 MG/0.3ML eCW1 ([facility]) Levothyroxine Sodium 0.025 MG Oral Tablet Levothyroxin e Sodium 25 MCG Levothyroxine Sodium 25 MCG 01/29/2021 12:00:00 AM EDT active Levothyroxine Sodium 25 MCG eCW1 ([facility] [place]) Levothyroxine Sodium 0.05 MG Oral Tablet Levothyroxine Sodium 50 MCG Levothyroxine Sodium 50 MCG 01/29/2021 12:00:00 AM EDT active Levothyroxine Sodium 50 MCG eCW1 ([facility] [place]) Levothyroxine Sodium 0.025 MG Oral Tablet Levothyroxin e Sodium 25 MCG Levothyroxine Sodium 25 MCG 01/29/2021 12:00:00 AM EDT active Levothyroxine Sodium 25 MCG eCW1 ([facility] [place]) 0.3 ML Epinephrine 1 MG/ML Auto-Injector [Epipen] EpiP en 2-Jacquelyn 0.3 MG/0.3ML EpiPen 2-Jacquelyn 0.3 MG/0.3ML 01/29/2021 12:00:00 AM EDT active EpiPen 2-Jacquelyn 0.3 MG/0.3ML eCW1 ([facility] [place]) Levothyroxine Sodium 0.025 MG Oral Tablet Levothyroxin e Sodium 25 MCG Levothyroxine Sodium 25 MCG 01/29/2021 12:00:00 AM EDT active Levothyroxine Sodium 25 MCG eCW1 ([facility] [place]) 0.3 ML Epinephrine 1 MG/ML Auto-Injector [Epipen] EpiP en 2-Jacquelyn 0.3 MG/0.3ML EpiPen 2-Jacquelyn 0.3 MG/0.3ML 01/29/2021 12:00:00 AM EDT active EpiPen 2-Jacquelyn 0.3 MG/0.3ML eCW1 ([facility] [place]) 0.3 ML Epinephrine 1 MG/ML Auto-Injector [Epipen] EpiP en 2-Jacquelyn 0.3 MG/0.3ML EpiPen 2-Jacquelyn 0.3 MG/0.3ML 01/29/2021 12:00:00 AM EDT active EpiPen 2-Jacquelyn 0.3 MG/0.3ML eCW1 ([facility] [place]) Levothyroxine Sodium 0.025 MG Oral Tablet Levothyroxin e Sodium 25 MCG Levothyroxine Sodium 25 MCG 01/29/2021 12:00:00 AM EDT active Levothyroxine Sodium 25 MCG eCW1 ([facility] [place]) 0.3 ML Epinephrine 1 MG/ML Auto-Injector [Epipen] EpiP en 2-Jacquelyn 0.3 MG/0.3ML EpiPen 2-Jacquelyn 0.3 MG/0.3ML 01/29/2021 12:00:00 AM EDT active EpiPen 2-Jacquelyn 0.3 MG/0.3ML eCW1 ([facility] [place]) 0.3 ML Epinephrine 1 MG/ML Auto-Injector [Epipen] EpiP en 2-Jacquelyn 0.3 MG/0.3ML EpiPen 2-Jacquelyn 0.3 MG/0.3ML 01/29/2021 12:00:00 AM EDT active EpiPen 2-Jacquelyn 0.3 MG/0.3ML eCW1 ([facility] [place]) 0.3 ML Epinephrine 1 MG/ML Auto-Injector [Epipen] EpiP en 2-Jacquelyn 0.3 MG/0.3ML EpiPen 2-Jacquelyn 0.3 MG/0.3ML 01/29/2021 12:00:00 AM EDT active EpiPen 2-Jacquelyn 0.3 MG/0.3ML eCW1 ([facility] [place]) Levothyroxine Sodium 0.05 MG Oral Tablet Levothyroxine Sodium 50 MCG Levothyroxine Sodium 50 MCG 01/29/2021 12:00:00 AM EDT active Levothyroxine Sodium 50 MCG eCW1 ([facility] [place]) 0.3 ML Epinephrine 1 MG/ML Auto-Injector [Epipen] EpiP en 2-Jacquelyn 0.3 MG/0.3ML EpiPen 2-Jacquelyn 0.3 MG/0.3ML 01/29/2021 12:00:00 AM EDT active EpiPen 2-Jacquelyn 0.3 MG/0.3ML eCW1 ([facility] [place]) 0.3 ML Epinephrine 1 MG/ML Auto-Injector [Epipen] EpiP en 2-Jacquelyn 0.3 MG/0.3ML EpiPen 2-Jacquelyn 0.3 MG/0.3ML 01/29/2021 12:00:00 AM EDT active EpiPen 2-Jacquelyn 0.3 MG/0.3ML eCW1 ([facility] [place]) 0.3 ML Epinephrine 1 MG/ML Auto-Injector [Epipen] EpiP en 2-Jacquelyn 0.3 MG/0.3ML EpiPen 2-Jacquelyn 0.3 MG/0.3ML 01/29/2021 12:00:00 AM EDT active EpiPen 2-Jacquelyn 0.3 MG/0.3ML eCW1 ([facility] [place]) 0.3 ML Epinephrine 1 MG/ML Auto-Injector [Epipen] EpiP en 2-Jacquelyn 0.3 MG/0.3ML EpiPen 2-Jacquelyn 0.3 MG/0.3ML 01/29/2021 12:00:00 AM EDT active EpiPen 2-Jacquelyn 0.3 MG/0.3ML eCW1 ([facility] [place]) Levothyroxine Sodium 0.05 MG Oral Tablet Levothyroxine Sodium 50 MCG Levothyroxine Sodium 50 MCG 01/29/2021 12:00:00 AM EDT active Levothyroxine Sodium 50 MCG eCW1 ([facility] [place]) 0.3 ML Epinephrine 1 MG/ML Auto-Injector [Epipen] EpiP en 2-Jacquelyn 0.3 MG/0.3ML EpiPen 2-Jacquelyn 0.3 MG/0.3ML 01/29/2021 12:00:00 AM EDT active EpiPen 2-Jacquelyn 0.3 MG/0.3ML eCW1 ([facility] [place]) Levothyroxine Sodium 0.05 MG Oral Tablet Levothyroxine Sodium 50 MCG Levothyroxine Sodium 50 MCG 01/29/2021 12:00:00 AM EDT active Levothyroxine Sodium 50 MCG eCW1 ([facility] [place]) 0.3 ML Epinephrine 1 MG/ML Auto-Injector [Epipen] EpiP en 2-Jacquelyn 0.3 MG/0.3ML EpiPen 2-Jacquelyn 0.3 MG/0.3ML 01/29/2021 12:00:00 AM EDT active EpiPen 2-Jacquelyn 0.3 MG/0.3ML eCW1 ([facility] [place]) Levothyroxine Sodium 0.025 MG Oral Tablet Levothyroxin e Sodium 25 MCG Levothyroxine Sodium 25 MCG 01/29/2021 12:00:00 AM EDT active Levothyroxine Sodium 25 MCG eCW1 ([facility]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 EDT [facility] BLOOD COUNT HEMATOCRIT <td>HEMATOCRIT</td><td>Timed </td><td>05/02/2021 7:00 PM EDT</td><td></td><td> </td> 05/02/2021 07:00:00 PM EDT [facility] TRANSFUSE RED BLOOD CELLS <td>TRANSFUSE RED BLOOD CELLS</td><td>Routine</td><td>05/02/2021 2:51 PM EDT</td><td></td><td></td> 05/02/2021 02:51:44 PM EDT [facility] CYANOCOBALAMIN VITAMIN B-12 <td>VITAMIN B12 AND FOLATE</td><td>Routine</td><td>05/02/2021 11:52 AM EDT</td><td></td><td> </td> 05/02/2021 11:52:00 AM EDT [facility] IRON <td>IRON AND TIBC</td><td>Ro utine</td><td>05/02/2021 11:52 AM EDT</td><td></td><td> </td> 05/02/2021 11:52:00 AM EDT [facility] BLOOD COUNT COMPLETE AUTOMATED <td>CBC</td><td>STAT</t d><td>05/02/2021 11:52 AM EDT</td><td></td><td> </td> 05/02/2021 11:52:00 AM EDT [facility] BLOOD COUNT HEMOGLOBIN <td>HEMOGLOBIN</td><td>Timed </td><td>05/02/2021 11:52 AM EDT</td><td></td><td> </td> 05/02/2021 11:52:00 AM EDT [facility] BLOOD COUNT HEMATOCRIT <td>HEMATOCRIT</td><td>Timed </td><td>05/02/2021 11:52 AM EDT</td><td></td><td> </td> 05/02/2021 11:52:00 AM EDT [facility] FERRITIN <td>FERRITIN</td><td>Routine </td><td>05/02/2021 11:52 AM EDT</td><td></td><td> </td> 05/02/2021 11:52:00 AM EDT [facility] BLOOD TYPING ABO <td>PREPARE RBC</td><td>Rout ine</td><td>05/02/2021 9:31 AM EDT</td><td></td><td> </td> 05/02/2021 09:31:00 AM EDT [facility] SECOND (2ND) CONFIRMATION TYPE <td>SECOND (2ND) CONFIR MATION TYPE</td><td>Routine</td><td>05/02/2021 4:37 AM EDT</td><td></td><td> </td> 05/02/2021 04:37:00 AM EDT [facility] BLOOD COUNT HEMOGLOBIN <td>HEMOGLOBIN</td><td>Timed </td><td>05/02/2021 4:37 AM EDT</td><td></td><td> </td> 05/02/2021 04:37:00 AM EDT [facility] BLOOD COUNT HEMATOCRIT <td>HEMATOCRIT</td><td>Timed </td><td>05/02/2021 4:37 AM EDT</td><td></td><td> </td> 05/02/2021 04:37:00 AM EDT [facility] BLOOD TYPING ABO <td>TYPE AND SCREEN</td><td> STAT</td><td>05/02/2021 4:37 AM EDT</td><td></td><td> </td> 05/02/2021 04:37:00 AM EDT [facility] COMPREHENSIVE METABOLIC PANEL <td>COMPREHENSIVE METABO LIC PANEL</td><td>Routine</td><td>05/02/2021 4:37 AM EDT</td><td></td><td> </td> 05/02/2021 04:37:00 AM EDT [facility] POCT GLUCOSE METER UNSOLICITED RESULTS <td>POCT GLUCOS E METER UNSOLICITED RESULTS</td><td>Routine</td><td>04/28/2021 12:51 PM EDT</td><td></td><td> </td> 04/28/2021 12:51:00 PM EDT [facility] POCT GLUCOSE METER UNSOLICITED RESULTS <td>POCT GLUCOS E METER UNSOLICITED RESULTS</td><td>Routine</td><td>04/28/2021 5:33 AM EDT</td><td></td><td> </td> 04/28/2021 05:33:00 AM T [facility] BLOOD COUNT COMPLETE AUTO&AUTO DIFRNTL WBC COUNT <td>H C CBC W/ DIFFERENTIAL</td><td>Routine</td><td>04/28/2021 4:34 AM EDT</td><td></td><td> </td> 04/28/2021 04:34:00 AM EDT [facility] COMPREHENSIVE METABOLIC PANEL <td>COMPREHENSIVE METABO LIC PANEL</td><td>Routine</td><td>04/28/2021 4:34 AM EDT</td><td></td><td> </td> 04/28/2021 04:34:00 AM EDT [facility] POCT GLUCOSE METER UNSOLICITED RESULTS <td>POCT GLUCOS E METER UNSOLICITED RESULTS</td><td>Routine</td><td>04/28/2021 12:00 AM EDT</td><td></td><td> </td> 04/28/2021 12:00:00 AM EDT [facility] POCT GLUCOSE METER UNSOLICITED RESULTS <td>POCT GLUCOS E METER UNSOLICITED RESULTS</td><td>Routine</td><td>04/27/2021 5:50 PM EDT</td><td></td><td> </td> 04/27/2021 05:50:00 PM EDT [facility] IRON <td>IRON AND TIBC</td><td>Ro utine</td><td>04/27/2021 2:08 PM EDT</td><td></td><td> </td> 04/27/2021 02:08:00 PM EDT [facility] FERRITIN <td>FERRITIN</td><td>Routine </td><td>04/27/2021 2:08 PM EDT</td><td></td><td> </td> 04/27/2021 02:08:00 PM EDT [facility] COMPREHENSIVE METABOLIC PANEL <td>COMPREHENSIVE METABO LIC PANEL</td><td>Routine</td><td>04/27/2021 2:08 PM EDT</td><td></td><td> </td> 04/27/2021 02:08:00 PM EDT [facility] TOXICOLOGY SCREEN, URINE <td>TOXICOLOGY SCREEN, URINE</td><td>Routine</td><td>04/27/2021 12:00 PM EDT</td><td></td><td> </td> 04/27/2021 12:00:00 PM EDT [facility] POCT GLUCOSE METER UNSOLICITED RESULTS <td>POCT GLUCOS E METER UNSOLICITED RESULTS</td><td>Routine</td><td>04/27/2021 11:47 AM EDT</td><td></td><td> </td> 04/27/2021 11:47:00 AM EDT [facility] POCT GLUCOSE METER UNSOLICITED RESULTS <td>POCT GLUCOS E METER UNSOLICITED RESULTS</td><td>Routine</td><td>04/27/2021 5:20 AM EDT</td><td></td><td> </td> 04/27/2021 05:20:00 AM EDT [facility] BLOOD COUNT COMPLETE AUTO&AUTO DIFRNTL WBC COUNT <td>H C CBC W/ DIFFERENTIAL</td><td>Routine</td><td>04/27/2021 4:56 AM EDT</td><td></td><td> </td> 04/27/2021 04:56:00 AM EDT [facility] BASIC METABOLIC PANEL CALCIUM TOTAL <td>BASIC METABOLI C PANEL</td><td>Routine</td><td>04/27/2021 4:56 AM EDT</td><td></td><td> </td> 04/27/2021 04:56:00 AM EDT [facility] POCT GLUCOSE METER UNSOLICITED RESULTS <td>POCT GLUCOS E METER UNSOLICITED RESULTS</td><td>Routine</td><td>04/26/2021 11:48 PM EDT</td><td></td><td> </td> 04/26/2021 11:48:00 PM EDT [facility] POCT GLUCOSE METER UNSOLICITED RESULTS <td>POCT GLUCOS E METER UNSOLICITED RESULTS</td><td>Routine</td><td>04/26/2021 6:48 PM EDT</td><td></td><td> </td> 04/26/2021 06:48:00 PM EDT [facility] POCT GLUCOSE METER UNSOLICITED RESULTS <td>POCT GLUCOS E METER UNSOLICITED RESULTS</td><td>Routine</td><td>04/26/2021 12:04 PM EDT</td><td></td><td> </td> 04/26/2021 12:04:00 PM EDT [facility] POCT GLUCOSE METER UNSOLICITED RESULTS <td>POCT GLUCOS E METER UNSOLICITED RESULTS</td><td>Routine</td><td>04/26/2021 4:57 AM EDT</td><td></td><td> </td> 04/26/2021 04:57:00 AM EDT [facility] BLOOD COUNT COMPLETE AUTO&AUTO DIFRNTL WBC COUNT <td>H C CBC W/ DIFFERENTIAL</td><td>Routine</td><td>04/26/2021 4:36 AM EDT</td><td></td><td> </td> 04/26/2021 04:36:00 AM EDT [facility] MAGNESIUM <td>MAGNESIUM</td><td>Routin e</td><td>04/26/2021 4:36 AM EDT</td><td></td><td> </td> 04/26/2021 04:36:00 AM EDT [facility] COMPREHENSIVE METABOLIC PANEL <td>COMPREHENSIVE METABO LIC PANEL</td><td>Routine</td><td>04/26/2021 4:36 AM EDT</td><td></td><td> </td> 04/26/2021 04:36:00 AM EDT [facility] POCT GLUCOSE METER UNSOLICITED RESULTS <td>POCT GLUCOS E METER UNSOLICITED RESULTS</td><td>Routine</td><td>04/25/2021 11:19 PM EDT</td><td></td><td> </td> 04/25/2021 11:19:00 PM EDT [facility] URNLS DIP STICK/TABLET RGNT AUTO W/O MICROSCOPY <td><c ontent ID="[id number]">URINALYSIS W/MICROSCOPIC & CULTURE IF INDICATED</content></td><td>STAT</td><td>04/25/2021 5:00 PM EDT</td><td></td><td><paragraph styleCode="header">Results for this procedure are in the <content styleCode="[id number]">results section</content>.</paragraph></td> 04/25/2021 05:00:00 PM EDT [facility] PROTHROMBIN TIME <td>PROTHROMBIN TIME NO THER APY OR UNKNOWN</td><td>STAT</td><td>04/25/2021 4:12 PM EDT</td><td></td><td> </td> 04/25/2021 04:12:00 PM EDT [facility] THROMBOPLASTIN TIME PARTIAL PLASMA/WHOLE BLOOD <td>PTT NO THERAPY OR UNKNOWN</td><td>STAT</td><td>04/25/2021 4:12 PM EDT</td><td></td><td> </td> 04/25/2021 04:12:00 PM EDT [facility] BLOOD COUNT COMPLETE AUTO&AUTO DIFRNTL WBC COUNT <td>H C CBC W/ DIFFERENTIAL</td><td>STAT</td><td>04/25/2021 4:12 PM EDT</td><td></td><td> </td> 04/25/2021 04:12:00 PM EDT [facility] TRIIODOTHYRONINE T3 TOTAL TT3 <td>T3</td><td>Routine</ td><td>04/25/2021 4:12 PM EDT</td><td></td><td> </td> 04/25/2021 04:12:00 PM EDT [facility] THYROID STIMULATING HORMONE TSH <td>TSH</td><td>STAT</ td><td>04/25/2021 4:12 PM EDT</td><td></td><td> </td> 04/25/2021 04:12:00 PM EDT [facility] THYROXINE FREE <td>T4, FREE</td><td>Routine </td><td>04/25/2021 4:12 PM EDT</td><td></td><td> </td> 04/25/2021 04:12:00 PM EDT [facility] MAGNESIUM <td>MAGNESIUM</td><td>STAT</ td><td>04/25/2021 4:12 PM EDT</td><td></td><td> </td> 04/25/2021 04:12:00 PM EDT [facility] LIPASE <td>LIPASE</td><td>STAT</td> <td>04/25/2021 4:12 PM EDT</td><td></td><td> </td> 04/25/2021 04:12:00 PM EDT [facility] COMPREHENSIVE METABOLIC PANEL <td>COMPREHENSIVE METABO LIC PANEL</td><td>STAT</td><td>04/25/2021 4:12 PM EDT</td><td></td><td> </td> 04/25/2021 04:12:00 PM EDT [facility] COLONOSCOPY <td>COLONOSCOPY</td><td></td ><td>03/27/2021 10:28 AM EDT</td><td></td><td> </td> 03/27/2021 10:28:41 AM EDT [facility] CUL BACT STOOL AEROBIC ADDL PATHOGENS&ID EA <td>ENTERI C PATHOGENS, PCR (FOR DX INSTEAD OF INITIAL STOOL CULTURE)</td><td>Routine</td><td>03/26/2021 4:15 PM EDT</td><td></td><td> </td> 03/26/2021 04:15:00 PM EDT [facility] BLOOD COUNT COMPLETE AUTOMATED <td>CBC</td><td>Routine </td><td>03/26/2021 4:28 AM EDT</td><td></td><td> </td> 03/26/2021 04:28:00 AM EDT [facility] MAGNESIUM <td>MAGNESIUM</td><td>Routin e</td><td>03/26/2021 4:28 AM EDT</td><td></td><td> </td> 03/26/2021 04:28:00 AM EDT [facility] BASIC METABOLIC PANEL CALCIUM TOTAL <td>BASIC METABOLI C PANEL</td><td>Routine</td><td>03/26/2021 4:28 AM EDT</td><td></td><td> </td> 03/26/2021 04:28:00 AM EDT [facility] UPPER GI ENDOSCOPY <td>UPPER GI ENDOSCOPY</td>< td></td><td>03/25/2021 10:41 AM EDT</td><td></td><td> </td> 03/25/2021 10:41:55 AM EDT [facility] UPPER GI NDSC DX W/WO COLLECTION SPECIMEN <td>EGD (ESOPHAGOGASTRODUODENOSCOPY)</td><td></td><td>03/25/2021 10:06 AM EDT</td><td> GI bleed</td><td></td> 03/25/2021 10:06:00 AM EDT - 03/25/2021 10:37:00 AM ED T [facility] BLOOD COUNT COMPLETE AUTO&AUTO DIFRNTL WBC COUNT <td>H C CBC W/ DIFFERENTIAL</td><td>Routine</td><td>03/25/2021 4:20 AM EDT</td><td></td><td> </td> 03/25/2021 04:20:00 AM EDT [facility] BASIC METABOLIC PANEL CALCIUM TOTAL <td>BASIC METABOLI C PANEL</td><td>Routine</td><td>03/25/2021 4:20 AM EDT</td><td></td><td> </td> 03/25/2021 04:20:00 AM EDT [facility] BLOOD COUNT COMPLETE AUTO&AUTO DIFRNTL WBC COUNT <td>H C CBC W/ DIFFERENTIAL</td><td>Routine</td><td>03/24/2021 4:29 AM EDT</td><td></td><td> </td> 03/24/2021 04:29:00 AM EDT [facility] MAGNESIUM <td>MAGNESIUM</td><td>Routin e</td><td>03/24/2021 4:29 AM EDT</td><td></td><td> </td> 03/24/2021 04:29:00 AM EDT [facility] COMPREHENSIVE METABOLIC PANEL <td>COMPREHENSIVE METABO LIC PANEL</td><td>Routine</td><td>03/24/2021 4:29 AM EDT</td><td></td><td> </td> 03/24/2021 04:29:00 AM EDT [facility] POCT GLUCOSE METER UNSOLICITED RESULTS <td>POCT GLUCOS E METER UNSOLICITED RESULTS</td><td>Routine</td><td>03/23/2021 10:25 PM EDT</td><td></td><td> </td> 03/23/2021 10:25:00 PM EDT [facility] BLOOD COUNT COMPLETE AUTO&AUTO DIFRNTL WBC COUNT <td>H C CBC W/ DIFFERENTIAL</td><td>STAT</td><td>03/23/2021 8:42 PM EDT</td><td></td><td> </td> 03/23/2021 08:42:00 PM EDT [facility] C-REACTIVE PROTEIN <td>C-REACTIVE PROTEIN</td>< td>Routine</td><td>03/23/2021 8:42 PM EDT</td><td></td><td> </td> 03/23/2021 08:42:00 PM EDT [facility] MAGNESIUM <td>MAGNESIUM</td><td>STAT</ td><td>03/23/2021 8:42 PM EDT</td><td></td><td> </td> 03/23/2021 08:42:00 PM EDT [facility] LACTATE <td>LACTIC ACID</td><td>Rout ine</td><td>03/23/2021 8:42 PM EDT</td><td></td><td> </td> 03/23/2021 08:42:00 PM EDT [facility] COMPREHENSIVE METABOLIC PANEL <td>COMPREHENSIVE METABO LIC PANEL</td><td>STAT</td><td>03/23/2021 8:42 PM EDT</td><td></td><td> </td> 03/23/2021 08:42:00 PM EDT [facility] OXYGEN DAILY PROTOCOL <td>OXYGEN DAILY PROTOCOL</td><td>Routine</td><td>03/23/2021 5:48 PM EDT</td><td></td><td></td> 03/23/2021 05:48:21 PM EDT [facility] OXYGEN DAILY PROTOCOL <td>OXYGEN DAILY PROTOCOL</td><td>Routine</td><td>03/23/2021 5:48 PM EDT</td><td></td><td></td> 03/23/2021 05:48:21 PM EDT [facility] MRI, lumbar spine, w/wo contrast 03/18/2021 12:00:00 A M EDT DAVID ([facility]) ECG ROUTINE ECG W/LEAST 12 LDS W/I&R 03/10/2021 12:00: 00 AM EDT [email or web address] ([facility]) Results ID Date Data Source [id number] 06/17/2021 12:31:39 PM EST [facility] Name Value Range Interpretation Code Description Data Arabella rce(s) Supporting Document(s) Care Plan [facility] MCHOEy5hHiENXkHo65/STFiuAQElb8ZiPBckLWb8RHrpPSTyZ6UwVTL5pC7vYZC7EHdFSmDxVnZiOCP7 lbm [file] dynamics ax consultant+7OuQYvhPVPdL9oMTv5+33/0ZKZmgZBEmy6T679 [file] ICAgICAgICAgICAgICAgICAgICAgICAgICAgICAgIC AgICAgICAgICAgICAgICAgICAgICAgICAgICAgICAgICAgICANCiAgICAgICAgICAgICAgICAgICAgIC AgICAgICAgICAgICAgICAgICAgICAgICAgICAgICAgICAgICAgICAgICAgICAgICAgICAgICAgICAgIC AgICAgICAgICAgICAgICAgICANCiAgICAgICAgICAg ICAgICAgICAgICAgICAgICAgICAgICAgICAgICAgICAgICAgICAgICAgICAgICAgICAgICAgICAgICAg ICAgICAgICAgICAgICAgICAgICAgICAgICAgICANCiAgICAgICAgICAgICAgICAgICAgICAgICAgICAg ICAgICAgICAgICAgICAgICAgICAgICAgICAgICAgIC AgICAgICAgICAgICAgICAgICAgICAgICAgICAgICAgICAgICAgICANCiAgICAgICAgICAgICAgICAgIC AgICAgICAgICAgICAgICAgICAgICAgICAgICAgICAgICAgICAgICAgICAgICAgICAgICAgICAgICAgIC AgICAgICAgICAgICAgICAgICAgICANCiAgICAgICAg ICAgICAgICAgICAgICAgICAgICAgICAgICAgICAgICAgICAgICAgICAgICAgICAgICAgICAgICAgICAg ICAgICAgICAgICAgICAgICAgICAgICAgICAgICAgICANCiAgICAgICAgICAgICAgICAgICAgICAgICAg ICAgICAgICAgICAgICAgICAgICAgICAgICAgICAgIC AgICAgICAgICAgICAgICAgICAgICAgICAgICAgICAgICAgICAgICAgICANCiAgICAgICAgICAgICAgIC AgICAgICAgICAgICAgICAgICAgICAgICAgICAgICAgICAgICAgICAgICAgICAgICAgICAgICAgICAgIC AgICAgICAgICAgICAgICAgICAgICAgICANCiAgICAg ICAgICAgICAgICAgICAgICAgICAgICAgICAgICAgICAgICAgICAgICAgICAgICAgICAgICAgICAgICAg ICAgICAgICAgICAgICAgICAgICAgICAgICAgICAgICAgICANCiAgICAgICAgICAgICAgICAgICAgICAg ICAgICAgICAgICAgICAgICAgICAgICAgICAgICAgIC AgICAgICAgICAgICAgICAgICAgICAgICAgICAgICAgICAgICAgICAgICAgICANCjw/sNVpN6zaaIWdxh O2E8wmOf3XFw2TVT7cj8IzEPYwBQwnevUjNncYPgRvBQGqBlnHXxf7YNzdOJ9VdVTzR5SdE3JeHXduBG 1YUHVuFTEmjHHbRTZcOTVmHoT8MELaKDxzKJ7GxXTr DAudODTgCGUfPhBpHMPlKV4ZDOXvK605dfJaWy6VJg1LDyFiUX4xtk5AXnvwNUSfDzcDNwx2DIvpEE0Q kOOzhIDfWHCrPJMSAiCcK0xaf1YfVmopSVSJWVxlUC0Ke7LiaLKaLRh+Qk8FUR4zr4XjRYhuEEShKQ2f ep2XITnPRfYxE9NgkOiwENGeqgJvTQknrfZvzQMHMI ZsGLFje16yhzqfDl3oMNKdWAHvAI8nSBTqAYHxJhFdDHEZWK3HBBJxNXZjrKOvWVRxAMUTXM5MGKjzTE I1ZbworvRrxTUePPizYN4NXHNtuyUkDqtuOQADDXt+Wa5IYV2la3AcWLctXYBnTB0dny9KRFyOVqXcQ3 G5cDAeA0D2HClsYi4UJVAeXESnXtRvXYRNJBrmQV4U WI3pmaG2MV6LqCQwBLHoWTHwaRQwXFx4V13bxNGpDKglZW0MVSH+Mau+Bb2HNCEhHGMnYPIxJePhGNQD IoSzC4CpM5HQh5KmI7ZqXM35fDmwqtFfJJyqFB4YLW2lYBMdIDMMFL8JnVRdsD8zwmNjQzDoYHFHVfAn L16gjFSlFATmWKZ2HVNpEz7DLOVyN5RinyKwlOisvl OlWPKuNGMRZY8EJLpirwDoaVMhvZknVR08jPfoCL7CFp7UWnMtCQ4xhi0UrSBiPk3GEDVyHB7YCIWtVG AcHVDiYWH2CAPnLoRrLFsnZYOeLUVnTRB6QPDuVMEfXH2BBpGgCBWzAxO6ArWqXKVkBXMpjs2XBXEhTP SmZjC8HwQnCYBrZAQdRKbfVITcZDWlYHK2MKEnCBDv UH6CFdIeZVDbUGPiYGUhARAiEREvdu4EEMNgQEIcAkZ8OfEdQOGrOJCwHNgxQGMpJWDmRJH3CTNnUCDq FQ4BHrNtSCQjRMPpGiqdINPwXZIuiq3DMADhQGAnTDK7EcKxHVCtDHZfEVlnSIBtUYZ2Gvv2NSJpUWCw MU7ZRoQiLCPaEBT4VxInLEOzAEBkak6RJIJtGVIrVZ LnNsUgKMKaFZZmREdeYCXjHXF4ZcSxHFKtLQEiGT4ARpImPDOfAUQ1TJVdKKVgPWIwfu6QPMJlKBKyQQ N5AdYjLBQsUUSbSSddGOZhEZX5ZUz7TERqSGZmOG7UTvMwBTDpQXz7HNdvALSbXQBbbr4GRXZvLQVuML MmYhVqSOGnADKmKVmwEIHiQCE1ISbfUWXyDZTbVW4M HfPeMVWkWbDgOLZyEDPeAMXaqq4PDBQcCICwXIAvFpWzQWGhLEUtBInyQDGyGHGsHDm4KERoVSSvJV6U GcHeJMHrKcN3COIgWHAbYWOeix3RYKWgNEWoUUDkGuNyJGQxYQSrXAagUFTtNYReJre3RZFmKHRvAE9Y OwNbSOUuWtYaSgVvFIJxSZUpaf4OXELuBSHhJvV7Lt OwKPFlZVKiQEifEPEfAAItWyH3FWMcEALvUH9NZhJpMAAaMqF5UFdbRCLxCHJdyh8OmCCqsOyxtc8BFB pJUs5MbQicAJOsVQmdKd2puPLoHNOkYULZFo9FvhUxKALlYCDMFExfJTXtXWk0YBvfYBEvWdQqFKIjHR ntW9H9Yeg8UOF2RUDhHNQcDcF7AJanWgVoPmNeBjKx D4Z6QTI8UVj1HFkaQDKfJIUdR6U+LB2fDVt+Hj4Pp3CqmfS5pqLzXRgrPNJfHx1TLIZZD7AMPw== ID Date Data Source [id number] 06/17/2021 01:33:53 AM EST [facility] Name Value Range Interpretation Code Description Data Arabella rce(s) Supporting Document(s) Care Plan [facility] CYWQUd5qVlLWJyZh81/KPBpyQIZyj1OaJQuaDEp0NArpNCSuW3NqKTU4xN5xDIS2UVhZGbEqTdUyWOP6 lbm [file] AgICAgICAgICAgICAgICAgICAgICAgICAgICAgICAgICAgICAgICAgICAgICAgICAgICAgICAgICAgIC ANCiAgICAgICAgICAgICAgICAgICAgICAgICAgICAg ICAgICAgICAgICAgICAgICAgICAgICAgICAgICAgICAgICAgICAgICAgICAgICAgICAgICAgICAgICAg ICAgICAgICAgICANCiAgICAgICAgICAgICAgICAgICAgICAgICAgICAgICAgICAgICAgICAgICAgICAg ICAgICAgICAgICAgICAgICAgICAgICAgICAgICAgIC AgICAgICAgICAgICAgICAgICAgICANCiAgICAgICAgICAgICAgICAgICAgICAgICAgICAgICAgICAgIC AgICAgICAgICAgICAgICAgICAgICAgICAgICAgICAgICAgICAgICAgICAgICAgICAgICAgICAgICAgIC AgICANCiAgICAgICAgICAgICAgICAgICAgICAgICAg ICAgICAgICAgICAgICAgICAgICAgICAgICAgICAgICAgICAgICAgICAgICAgICAgICAgICAgICAgICAg ICAgICAgICAgICAgICANCiAgICAgICAgICAgICAgICAgICAgICAgICAgICAgICAgICAgICAgICAgICAg ICAgICAgICAgICAgICAgICAgICAgICAgICAgICAgIC AgICAgICAgICAgICAgICAgICAgICAgICANCiAgICAgICAgICAgICAgICAgICAgICAgICAgICAgICAgIC AgICAgICAgICAgICAgICAgICAgICAgICAgICAgICAgICAgICAgICAgICAgICAgICAgICAgICAgICAgIC AgICAgICANCiAgICAgICAgICAgICAgICAgICAgICAg ICAgICAgICAgICAgICAgICAgICAgICAgICAgICAgICAgICAgICAgICAgICAgICAgICAgICAgICAgICAg ICAgICAgICAgICAgICAgICANCiAgICAgICAgICAgICAgICAgICAgICAgICAgICAgICAgICAgICAgICAg ICAgICAgICAgICAgICAgICAgICAgICAgICAgICAgIC AgICAgICAgICAgICAgICAgICAgICAgICAgICANCiAgICAgICAgICAgICAgICAgICAgICAgICAgICAgIC AgICAgICAgICAgICAgICAgICAgICAgICAgICAgICAgICAgICAgICAgICAgICAgICAgICAgICAgICAgIC AgICAgICAgICANCjw/hIAzO7dmsDMxgtU2Y1klLt4Z Wy9PXY2ir7UbKMTsBEashfBiSslQPlZdUVHoCkuGOzq6AFnoNT5UnHZzX4YuJ3DaTJwkQQ8UBFZjGIHr kITcFTDsOOWsNmO0MCYhEAwiMQ3ImQXiDWtaEIZiURMfYdTcLUQxUF1PALOqW909kcAzHe2GOv7XGmWk TU9mjo2ELuNnUEGlUnfKTns4ZNvjTK1SpQQvvEIuCf TvLOXILjNbD4wpx6KrCaUzRJQSSIsxAN2Cv5MeaEIvVBu+Qu3WLH0sg0WkNUfkUbHyCA5yer2CFKjTVb AiP8OkhLecYDEiicYgJVccolZylJYNkZpmsXDzP6OyaV30kHQmFAGMZbYlhRVrHG30HcInLdKsPSA6Fq YkGS6oVBpeSO8WUEH1ZZhiZRXvUWKvP5lURhQdFMxh ZQHlmYmeYS0IClSbQ6QkdqKffDHlQoTyXKEQXj5+TKckynSmWthKFaS3WVFee3JfZGj4AI6DDJKaENtr DY6TFVMywS8yHNbbRS9NBkByJHWuFQLGErBcV50zrPMkSCg6N0JkDpCvVRBeNlovZDXvCPluCaGdXPWj WyBdDQogID4+ID4+BTknDA0MVUanfbRqOELaJy8EUN GyMPGkUR4aRSZrXYKiR0P6vCqgZFASLrFuY6nmnbooMN7uVPDhI908uFvjvgNyEJTcFMEoEh7MBZKlDJ T4EXRhbBFdAnXwUMXHJHloVV7UyGRqWPD8pB0oOZboAXFsPSTnH2iVQnGkyDbeAY99cWwuxyLhsJNbXM o+Fo8ZYE7qv5JtFWz7dmAoJDueQMX6JMmoXXAtGNCl ZPTiQNQ3GUH6AFWKWnOqCWNbYCGtOGnyRSGlFZBczp1UXNArRLDrExB1XBYyEGXsCUYiUGvrJVDvNBL9 AEFtOAAtQPEjHT2YTjTbEZZjYKGxQFadOKPsHCDojw0XFFLgJIYuDpEaAyGyRSLoVRYtCXppYYGlRDKe ApL5TRDmNUQvXM6HZvMmNZMnPHB7ZCFvZIMeZKHvaf 6GHQOrVSYgWEpeLFHxNRIaAGCfUBspRJGdDKC2NaA6JCZmWTWwYP9DLsWiUGVhRCF3SysqMZKjHTSbdr 2ZJBHtGEYmFtN0UUUiKXYbJPGmXHwqESTvIHX8YJS4FZPnMYSdXA8REgTkENSdIBioXJZwZECgICTxbf 4OQMBgDMQzGfD5DPYaHIPmEWCeQUujIVScXSK2JXMq QSYoELQhBN2WZvPtELKjLdMhURshWPPoOMOqbw5HZVSuRXVmILE9EPUbLOMjSNOmMNgpHZQtBVGlTrS2 QJHhFMZqJJ9RAcOcHUGxSaK0UMGnIENtOEJdsi1REDZaXYGyDME4JvKiFRKnGHHgIMyeTLEvFFJaHCo2 IWGdCRUhBU6JBzZeGQKaZoPjWYEsUCZtECJpit8EHE DhNPMvWqTnBiKfCVJxACJiFCumJJUkWSUpIqA8RTTrXNWwXU0BRqDvGTFqAoAvBTBuWUByWGEyom3YTX GiMOHbHossSOPaAYIaBOTfWWqiWULqRYS4XKTxRVKjZOGrCV8MYkJsZEBrFfwfNlWaVSJcOLUbgu3PEX HlSLAbBoE9GTDdYGPdXDFgJLkkHQJfYLA2HcIrDWYz VJLkPX9QLtPlZSBsPznyNbLoQDSoDORklt9RRXQwASYhPHClSlNkQTCbDVFrZSavYIBnAKY5UQe6KFQo ZQJhGO7MKlCiJAQrStt9WoQpNBZjTNPtps0BiATrrNviko9WDMxAKt1GjBckXHZ2HOtjXi8thVOoZUQq CBJXXs8MqtYbSMVjBYFOHDpfLICuDIAoWDCcQHIyZJ g5QkFtPQHsAZR2HFT1WPK6TFlgDYCtSiQ7WoQuQbZxARP1RLWhFCTiC8R9EaXzZjb0VqajB2FgFiQ+IF 0gDQo+Rx1Ep6FpdjB3krYiUYxeZNc6Xl2ESWBQV0BQAy== ID Date Data Source [id number] 06/16/2021 06:29:05 PM EST [facility] Name Value Range Interpretation Code Description Data Arabella rce(s) Supporting Document(s) Nursing Note [facility] AHRRHx6bTgVIQiNd22/UQCfsIADei0FxRAnzCWg7DYffTPQgJ3WaDTK7wH6vAEF2IQhONvMoBnAkMXB7 lbm [file] AstrX4wcNpMHjwBOO6FM8JPGYDK6DZXh== ID Date Data Source [id number] 06/16/2021 05:46:27 PM EST [facility] Name Value Range Interpretation Code Description Data Arabella rce(s) Supporting Document(s) Care Plan [facility] KDEAEy1cBjIZRuXl25/ATAwuBCUbv0KsOSfqQTh7XMxrFWRtI3EtULV9eH7pDCP0LGrFRgAdUtLgDWK4 lbm [file] A+OR5rLOk+Zc2Wk0PohvL6swFhXUoqRyX5Ae2SQDONC0GXKv== ID Date Data Source [id number] 06/16/2021 05:48:00 PM [facility] Name Value Range Interpretation Code Description Data Arabella rce(s) Supporting Document(s) Phosphorus 3.9 mg/dl 2.5-4.9 Normal (applies to non-numeric resul ts) [facility] The above 1 analytes were performed by [facility] [id number] [facility], ,[place] [address] ID Date Data Source [id number] 06/16/2021 05:16:00 PM [facility] Name Value Range Interpretation Code Description Data Arabella rce(s) Supporting Document(s) Magnesium 1.8 mg/dl 1.6-2.6 Normal (applies to non-numeric resul ts) [facility] The above 1 analytes were performed by [facility] [id number] [facility], ,[place] [address] ID Date Data Source [id number] 06/16/2021 12:40:15 PM EST [facility] Name Value Range Interpretation Code Description Data Arabella rce(s) Supporting Document(s) Progress Notes [facility] KDRKFb2lQpLZCcJf36/DFBmnZMKvu1KgJRkqYHi6DLqcNLSdU0KeOKF6oU2rPYK5ERjQOlEhMqOqWAD3 lbm [file] RusM7JL7SQBUfOVPTIZo6RTZHoJ11BBIZD+9FbQZ18 WQJ1KK9I+jAdsGhKDpAjOLgvNFL5gO+7cB9FiwATcVuEDicikGnjX+yHWwJFHbRSV+UqW+aeBT4A/oP6 fvUEN02YuiE8/o/aJU6VNWI8e8b/tPC0MGusEZwJ7NyhZ8r/QW4klWw18gWvFbrFvSEB2hD74xK2ZRvB adRBA0Hf1yDVHTszA/uceBrtOgT/s0K1JY24HYEj6u pWwzawv+sI+W7b8o+CVx5yce+XediQxT3y70sRP8G96Jz+nXndb92L01dnhM5W6KXJNeNgqqmF/xLUec /7Bf1Eg1FhJKMeSdDh8rQUzwUC0i0nhAj8HcmTsAJ5V9/Xms5eQp28C9l+vtD8pC8KTJuaaFw5ZBoChN NW9dXlylLV7zJcdRjO8sJYs14Ms52rlx+kPgUcwXpp tKhNO8tkYxKqb011mu4qVPE7Vi6WQVMcIkGC93AN3y85gj+h+2Jc87DtDy1i9dzohfPxN9BeXAD4xaZ3 j+z+6qidAr/O7Hi5DNTvh8Hi3KuktL4U6gHpkRR+NLeF3Ht+M+CaXvlK9bEbuszwySZ8uL0NkikGI2kH qxncw+keYKHLRSmuluJvqMxVkyhfnDHafxtLnDuuQ9 2smo68Z0/Ph+/uKuApmWk1o1A3wGKxcKHxUKp5TTiwQD8hC/99kIZnZ+L1IwWTLFDFQ55g78XMPoY7GL wqEugzHbxCi4ZscNqoOuFNCcHxQPEj0MQ1tXb2k+c9Rg8gmdY1Oo1wYiLv1LEUuenJtQin3We79lvIXX muNow05DDTAT3t4LlhB0xwb/p5iDoaVG080CCHZO30 BqNQxCiIy1eKzqeaUHS3dSkwG+z8R5BK2iiO+mHwEMrw8tj3kZHF5BDMJ/C9/hIaLFWSLv+e3zpb1BZL fu5Z090t6egcVcot+BtqIIPWMYi9x5R9tz6hog+lDrD/xkjNzI/8Q0UMEgUcfuhPG9t36yyMgCkOtXwU ngQoIlu5FcU46Qsy8LqTW13xdkXjh1s01+JdnrYH+7 zEAB8pRztZji0hXFMPBuq3Y9e6oJ/4ByAt/y2bH+BaVI48wY686fQ28FNVjX/mO30HdaIdjgeH40xJ05 9TYfUxy8UhdOvOq00Sd5e+S2qdtveniht7eZ9dtOC7aHmYbHcuFfewIdFJlPNh1g//ysaLD3Sy72Ceg/ +uc60Svxj0QCDda+7jofSHxcM9YRRuvAcSKddlv5/v BIm//8CGKTv2KpBe7PPR3N7dC27SRlD7zyB2VL8OShtYJuKfMj6Bo3mSBo7ilRjaDM3RGlLv2uK/A/svp research & ebusiness operations Zphf95P/NE68cBhOoXtfbRzHOmy4bODNFhA7D02/YEtnaI6MrmBUCD3KP4uyZ1PrcMX1g734x1wQn5gK XxnWuhx+w8D7lgpCooUwo978j6RET0kBhI0Od2MSJ0 lgIcCZNQGmQL35gQFV0qkpsD3jHroAnupO70wtRtXdpMDNB3K/uy0K+4lZZWievJ07DbA/BLbLTzb1Tj ViUjVdo99hn1u27Uy9es3YB3crXPPLzc2hmDvcxx70X4wsRx/tP2luW5mNtvXeqHxyKNU3pGUSaSpZMC 7mVmsXvgRFsSiy22/lXVtS3p1Yz4DW93dXykL0QCeK nFs2e3qByZn8zL/eWmcJBtXcLs6QnSJmbdkQai9rLIXfx7zEoyFsO0o4zwC3YYvkhFoKRUcdjSa3zC5H S7bdu3iJ6Dcl90BZRDcCRv7uRCmh6d1nJeZkJh1pphd2vvsljWaLhtn7CP9kcMh8yMMR95k4AQmmNe6j YtqgEMgQPQHah6anBoPNJT/YhpLfYfGipTcld0IGfe 9DxnsCRkw+wpPcVshgg/ILGTXmF+yNqDJeMacOEq6Wi6cSbW6xb9D43gJepSkGswUWszkCjKEuCWN/YV SKNtM6hMrILTb3lEkMFNL1FmOedUVI1FaPPjbRym+qvlV4sg1SWtxGOSmMTDxVnlz4J/m2iGJgRQ5FB2 kOIoW2GUCAzar+YYVVjaIGJA+VJUIUUcUDRmZFFC06 [file] ICAgICAgICAgICAgICAgICAgICAgICAgICAgICAgICAgICAgICAgICAgICAgICAgICAgICAgICAgICAg ICAgICAgICAgICAgICAgICANCiAgICAgICAgICAgICAgICAgICAgICAgICAgICAgICAgICAgICAgICAg ICAgICAgICAgICAgICAgICAgICAgICAgICAgICAgIC AgICAgICAgICAgICAgICAgICAgICAgICAgICANCiAgICAgICAgICAgICAgICAgICAgICAgICAgICAgIC AgICAgICAgICAgICAgICAgICAgICAgICAgICAgICAgICAgICAgICAgICAgICAgICAgICAgICAgICAgIC AgICAgICAgICANCiAgICAgICAgICAgICAgICAgICAg ICAgICAgICAgICAgICAgICAgICAgICAgICAgICAgICAgICAgICAgICAgICAgICAgICAgICAgICAgICAg ICAgICAgICAgICAgICAgICAgICANCiAgICAgICAgICAgICAgICAgICAgICAgICAgICAgICAgICAgICAg ICAgICAgICAgICAgICAgICAgICAgICAgICAgICAgIC AgICAgICAgICAgICAgICAgICAgICAgICAgICAgICANCiAgICAgICAgICAgICAgICAgICAgICAgICAgIC AgICAgICAgICAgICAgICAgICAgICAgICAgICAgICAgICAgICAgICAgICAgICAgICAgICAgICAgICAgIC AgICAgICAgICAgICANCiAgICAgICAgICAgICAgICAg ICAgICAgICAgICAgICAgICAgICAgICAgICAgICAgICAgICAgICAgICAgICAgICAgICAgICAgICAgICAg ICAgICAgICAgICAgICAgICAgICAgICANCiAgICAgICAgICAgICAgICAgICAgICAgICAgICAgICAgICAg ICAgICAgICAgICAgICAgICAgICAgICAgICAgICAgIC AgICAgICAgICAgICAgICAgICAgICAgICAgICAgICAgICANCiAgICAgICAgICAgICAgICAgICAgICAgIC AgICAgICAgICAgICAgICAgICAgICAgICAgICAgICAgICAgICAgICAgICAgICAgICAgICAgICAgICAgIC AgICAgICAgICAgICAgICANCiAgICAgICAgICAgICAg ICAgICAgICAgICAgICAgICAgICAgICAgICAgICAgICAgICAgICAgICAgICAgICAgICAgICAgICAgICAg ICAgICAgICAgICAgICAgICAgICAgICAgICANCjw/xXDrY4kmhMDszpH8R8zvYc2GBa1KDJ5qo6GuTTTw SLvisuJpQapUCeUkIQLiGfjHTjm5PCzyRV8HrQInR5 TcK1IzANuqPE2QWMUkWRHgmEEoYQVlRSCtZtS5EFVxIGdyPI5QqSDoPMypGRLoNAOvSgPqPLGfQKFkNG MgQQFrUUYCTH3TXwNwC1WjdG63YMGAOg6+UVmxzmBrIwlSDrZ5CFMqc0CvIQg3SR0WBXEkEaoji4TaVC PxGWZVUMvqLL0ZJXU6IBM5YFKnCo3SBKNnG210ryFx YV8WHr8CAnWtIV8xsl5NSGAxGGAjKfbZXkn3CDofAZ7StZQgNFrGni6bgsBfseDZj6ArrkIpfHGCkzro NN9bF4CwsIh4AFMQXKFDIU7tGUZsOWLtFB6uMAItMKJiMnHeKDEAXH5RPOIlUOTkqWIjXZMrZSAERU5K CSojZIL3XqbrzoDyfBEzCRsaJT3SVCHorjWlAEKoKA BSDQo+Oc0KRP7bj6AjMUy8XhOqSS5ngb9PWBdEHqIkN2N9tFKsK4N7LGouQa9RWIWqLTKmRJNhWYCEXA wzCD7NME8kudG1BQ9CwKTvCWQyTJUnhKXlXSq2Q05dnVUtYZstGG9QXJY+Mau+Hy9SYAZsTOEoHGYhIu ZgUMJEVfYbF5WdO1FFm1NlO8SqGJ72bJpxgrJiMEfr VJ6XQY1vQVJrGSUQAJ9QaQBfhU7czfN4BOBeUYYXBdPxX86ymFQiLEAbGJPcKYHlYx9BQBGzU4OusrIy zGvemgPsRZZjXVLEHA5TEOsfxfUvbJNgcEhjLK41iYzjRO6ITe0UIsXdDJ5xsd0FcBKaLz7WDFO3Gd2W LKUcIILaKXFdGIX6OMDcXfDxTFdePPFgLLJuHNT7JB XuTNPrXF9THjSwOYNdGQM1PEpwKEYwKFSaez4WCKMrOKU2DiP7GIFwGPVqHYGhECiaJCNcBATuHSN9ZQ FkJCLrHW5QTgMxJBNbUKBpAdJcFGLnUIRnsk7CPLLsOANnMpBiWMVyLJYpGFAyVJxrLBOzALT9OpCpMB CeQOFuDH7WQrVjAOLcMQA5GENaAWRxXYEvol7VQMOq GLOyWOa0TWSzTWNxQGVkASubXKBmVCJ1XTZwXGYlQQKaXB6TZlBzVIKyBGT8UWHyMCWuRXWwny3BOWIe VSRqNFw7KfIeXPLgOURzCQvdYCEcEGVrYfJ1RTKuBSAmNW5EAgShZQBzCGX5JEooMIXnNZFotq1SKCVp IFWyVaU7ATDaPAYcXBAmSRldHCWdZPX9SOV7RHNdAT YfJT4PQpUtQMJrZHOwVZEgDRVoRCCekx0FFVTcSZSsOFHlZGJcYJOnHBXrEQysIXBhSEP5Cnz5APJgQM CzWU4XKpQtZCOhZhqhWNGlUQGlYRPgyk0BXELeFNTcEfHzJGCiNRJiAJItIYgkARHoKCH2CIX1WIKlDN CeWJ1GOlSfTNUxOfw6LXBcGPHqPSTbsx8PWKJvYAJg XQKxBMYqFPFtTSDbHConGWAlWBI8AAD2WYEpWYNbYW5EQgZySKWeNduoQKzvOPBcCWXwpf3GUPTsPGQs YUs9YEOjBHPaICAtFYvxUNUkNAPiHTY7YFXwFTLlTP2DCqAwSKZjCeUvIYxuQYXfYBAjlv4BRRFrTLN4 TbHzUyBaHMBuYRTbWStaYYGkQXOjWRO6WKKbDCKgYM 1LSfLaKSTeFSAlFpXjNJIwBCIlsr5QGDOmQEQ1JKShVnRcUNFhLSIuRPzjDXAiSBD6SXUbFHVtAFJwKO 3QVgCyMMVaBGK8PJOaJKCrWBVzhv9TWUIcTRM4VHS5IFLpODClTDRcATwsKAWcQUB9ZZK7QZWbOOSxBT 0CQuLwFFKcCFU4DdYhQOGcQXPmta9URDXfGUU1ZANe PZJtFQNfUYJcHEkhXUBiVLWbYzUoLRWsPSSoJE1XPeCnBFZuKCC8MVYgBXVzHSJhav2DPEIdLKV3KAAx NvVhNNQdTNYvCOzgSTViOUYaZOJ7AEWeBLVaKO8ZKuRkRZPuLRU3FjOuOFMmBJFbii7ZXAUhCLW5AiD4 JdJkEYDkZUOuPYeoMMBwWYEiAfd6XDKcAGMhZE2EQb BgFYmgHGNYVpj9AVsuV8a5KLA1Sq7KB4Tgq6OvRGGdTVBLIOxjFC5xjwJjRGWjLm0UJ9oLIipyRTYkC5 L2VCc8PFd7SVj3WeyaPNIrJMZiPKP0T8ClNO5hQSN1LnBnQJqoEbU1QUe8XFYtOtR6VIC8SMOnRQFqLy LsAsNwNK1PTm2FOuN9DEV1aGEwZy6WSVXdIEJMZeBzZR9LUPz= ID Date Data Source [id number] 06/16/2021 05:17:00 PM EST [facility] Name Value Range Interpretation Code Description Data Arabella rce(s) Supporting Document(s) Pre-Albumin 13.9 mg/dl 20.0-40.0 Below low normal [facility] The above 1 analytes were performed by [facility] [id number] [place] [address],[facility]#: [id number],[place] [address] ID Date Data Source [id number] 06/16/2021 06:21:00 AM EST [facility] Name Value Range Interpretation Code Description Data Arabella rce(s) Supporting Document(s) AST 18 IU/L 15-37 Normal (applies to non-numeric resul ts) [facility] Sulfasalazine and sulfapyridine have the potential to falsely depressAspartate Aminotransferase results. Baseline values before medication administration are recommended. ALT 48 IU/L 13-56 Normal (applies to non-numeric resul ts) [facility] Sulfasalazine and sulfapyridine have the potential to falsely depressAlanine Aminotransferase results. Baseline values before medication administration are recommended. Alkaline Phosphatase 61 mIU/ml 50-136 Normal (applies to non-num madiha results) [facility] Total Bilirubin 0.70 mg/dl 0.20-1.00 Normal (applies to non-numeric results) [facility] Blood Urea Nitrogen 6 mg/dl 7-18 Below low normal Health system Creatinine 0.65 mg/dl 0.51-0.95 Normal (applies to non-numeric resul ts) [facility] N-Acetylcysteine (NAC) and Metamizole em ve the potential to falselydepress Creatinine results. Baseline values before medication adminstration are recommended. Patients undergoing treatment with phenindione will have falselydepressed results. Patients on phenindione therapy should be tested with an alternativeCREA method.Toxic levels of acetaminophen may lead to falsely depressed results forpatient samples. Glomerular Filtration Rate >90.00 mL/min/1.73m2 [facility] GFR Reference Ranges:Normal Function or Mild [...] of Health and the [employer]ney[employer]. The [place] method used in calculating this result is traceable to IDAL standards. Glucose 79 mg/dl 70-110 Normal (applies to non-numeric resul ts) [facility] Sulfasalazine has the potential to false ly depress Glucose results. Sulfapyridine has the potential to falsely elevate Glucose results. Baseline values before medication administration are recommended. Calcium 8.1 mg/dl 8.5-10.1 Below low normal [facility] Total Protein 5.4 g/dl 6.4-8.2 Below low normal [facility] Albumin 2.2 g/dl 3.4-5.0 Below low normal [facility] Sodium 138 mEq/L 136-145 Normal (applies to non-numeric resul ts) [facility] Potassium 3.5 mEq/L 3.5-5.1 Normal (applies to non-numeric resul ts) [facility] Chloride 106.0 mEq/L 98.0-107.0 Normal (applies to non-numeric resu lts) [facility] Anion Gap 7.0 [facility] Carbon Dioxide 28.5 mMol/L 21.0-32.0 Normal (applies to non-numeric results) [facility] The above 16 analytes were performed by [facility] [id number], ,[place] [address] ID Date Data Source [id number] 06/16/2021 05:48:00 AM EST [facility] Name Value Range Interpretation Code Description Data Arabella rce(s) Supporting Document(s) WBC 7.02 x1000/ul 4.80-10.00 Normal (applies to non-numeric re sults) [facility] RBC 3.24 x1Mil/ul 4.20-5.40 Below low normal [facility] Hemoglobin 8.9 g/dl 12.0-16.0 Below low normal [facility] Hematocrit 28.4 % 37.0-47.0 Below low normal [facility] MCV 87.7 fL 81.0-99.0 Normal (applies to non-numeric resul ts) [facility] MCH 27.5 pg 27.0-31.0 Normal (applies to non-numeric resul ts) [facility] MCHC 31.3 g/dl 32.2-37.0 Below low normal [facility] RDW 16.1 % 11.5-14.5 Above high normal [facility] Platelet Count 219 x1000/ul 130-400 Normal (applies to non-numeric results) [facility] MPV 10.5 fL 9.4-12.4 Normal (applies to non-numeric resul ts) [facility] Neutrophils 69.6 % 40.0-74.0 Normal (applies to non-numeric resu lts) [facility] Lymphocytes 16.0 % 19.0-48.0 Below low normal [facility] Monocytes 9.7 % 3.4-9.0 Above high normal [facility] Eosinophils 4.1 % 0.0-7.0 Normal (applies to non-numeric resu lts) [facility] Basophils 0.3 % 0.0-2.0 Normal (applies to non-numeric resul ts) [facility] Immature Granulocytes 0.3 % 0.0-0.5 Normal (applies to non-nu meric results) [facility] Nucleated RBCs 0.00 % 0.00-0.20 Normal (applies to non-numeric r esults) [facility] Abs. Neutrophils 4.89 x1000/ul 1.92-8.31 Normal (applies to non-numeric results) [facility] Abs. Lymphocyte 1.12 x1000/ul 1.20-3.70 Below low normal [facility] Abs. Monocytes 0.68 x1000/ul 0.14-0.97 Normal (applies to non-nu meric results) [facility] Abs. Eosinophils 0.29 x1000/ul 0.00-0.76 Normal (applie s to non-numeric results) [facility] Abs. Basophils 0.02 x1000/ul 0.00-0.22 Normal (applies to non-n umeric results) [facility] Abs. Immature Gran. 0.02 x1000/ul 0.00-0.02 Normal (appl ies to non-numeric results) [facility] Abs. Nucleated RBCs 0.00 x1000/ul 0.00-0.02 Normal (appl ies to non-numeric results) [facility] The above 24 analytes were performed by [facility] [id number], ,[place] [address] ID Date Data Source [id number] 06/16/2021 04:17:40 AM EST [facility] Name Value Range Interpretation Code Description Data Arabella rce(s) Supporting Document(s) Nursing Note [facility] KURTNv2yOeXSQmYp77/VBQqwXEVzf0OrBEznULp1NFpwSFVfI6KqNNV8sR9pYAM5GKjEQgQuZuPsZGD1 lbm [file] O8Ung6EUM2E5E8PJN6Ij2wZPICEz4+FKguoTPpoPiwHANYGjn3VwEXIcElDG1VGPj= ID Date Data Source [id number] 06/16/2021 04:14:00 AM EST [facility] Name Value Range Interpretation Code Description Data Arabella rce(s) Supporting Document(s) Care Plan [facility] UORWNg8dHyHEZkJf43/DXAhrESBru3CxCFhtIRo3NFrsSMFtE5NvZKQ3hR9uAHX3HTrVAwMyVzEuMLF3 lbm [file] Rg0K ID Date Data Source [id number] 06/15/2021 11:18:40 PM EST [facility] Name Value Range Interpretation Code Description Data Arabella rce(s) Supporting Document(s) Progress Notes [facility] FRWDLs0uUjEFTuBz60/BCBjeXUTdj7LwSOjaRTd6BRhmWRMpJ5NbCNX0nN3wWZA1BZhHEtDzJkLlQAU4 lbm [file] 2r87O0nfmf/UrG1AalWVZA9syoFuTjkVay3WeGgsP0hmPH//[facility]/1h7QGJ9il6AowVobKUV+aIG45zpE [file] 5TeoZkYBTPIzD3arAwGbWwCAOUSTR5nqj4GXqp+José Miguel [file] 7ROuW4OGD2bWBdDi4UXqTmGjgELzLzGS1RXHg= ID Date Data Source [id number] 06/15/2021 08:06:52 PM EST [facility] Name Value Range Interpretation Code Description Data Arabella rce(s) Supporting Document(s) Care Plan [facility] HBCIYu6uKeVXHrTe01/UYNikTHLnh9IrLHvxGMt2YBwmJJFlA9YqNXJ3xN1bWLZ5ABqXNdZeOxPmMFI9 lbm [file] G3WiA1DI7cIKZEMo8+VAoiyMLrkPpqOTVNOdHlKYP4HYhdKHQWYa6K ID Date Data Source [id number] 06/15/2021 02:50:21 PM EST [facility] Name Value Range Interpretation Code Description Data Arabella rce(s) Supporting Document(s) Nursing Note [facility] CMYYMc9eQzDCVbBo39/KBDldIJIox2MnAXpbOUd5TNcsKBFtE5BbSCK6bP4fHGB3SWuNIpYyChGkIXK0 lbm [file] GeTtUOu6PWtaVNMZTx8S ID Date Data Source [id number] 06/15/2021 09:34:41 AM EST [facility] Name Value Range Interpretation Code Description Data Arabella rce(s) Supporting Document(s) Progress Notes [facility] YXIKBw3aLnACTdNn76/QCWxoIQGpn0PbVQdjZRt8GAbzRBKoH4LvGQO5vA2yKBV8IHnTUaFaGdOxYQP9 lbm IiEhcJQqNlYEXkPrdFUaHuHIdbUseizSRdPB7MuXI1RAUxV99oWERtUVNpM1GsHAK1QwF+Ap0IIAJmdH FyHV9ANqgK3Z5px6v1NU/fOI2Esq3AVDKYX2F/1oau9kCZIGxQ8o2UZvRI2qBm3UcwM3XfyV0IP6Iir6 YWNOmeNt0onhL2roanJLQBraq919iQSzTQHp76somQ Cfai1L2XU+NUicup+FIhvBsOy3dU2y/RIPCAkomMzQPVT9+7+0QS9ugiSS/xE4JXuIecGvq9swSQDjci 0us8Pn290OvjzkJJNlsh3RCfzv7VwfZLMBsXjpSvVrNff81BWkSHt1qkl5HlF+B9axGykm8sDyvAXdD3 oNTKJHqTilmt0QiZICKAPXqHsFDVGBeMyMLd37EPH6 [file] ZhH1WLFfPqGqJJFsPAE4MiNrCG6BGj6HFsI4TLB8eLBfPl9PJZFlJExEQpDoCA9VCBt= ID Date Data Source [id number] 06/15/2021 05:10:46 AM EST [facility] Name Value Range Interpretation Code Description Data Arabella rce(s) Supporting Document(s) Nursing Note [facility] IZNOPr2hOqSXEjWg41/EQZjpIKBil5XkEVxxFCh2WQxgMXDyB6VoUZO4zV6gQSF3HUdIAtNyRoAsYWU2 lbm IlYngTUaAgNFJfJbiSAlUiWHefLafsuCDaYZ8AcPZ4JMXdL97lKMKrZPDuI7NuEELxDpA+Ta2BHSRulO JcFJ0SXfyC5MpzA+NGEH+i7N5fNhsFF7mY1h6xTQX4nkr1xCGyMfW90KCJaO1WWT4T+srFgq2olTx1uR OMJySMv32s48lWnhSkxg4NfGpJOWP/dr4JsyM1Iy7/ WL6ezASa1LLhCmaAgCN5VbThFA/pNVnxelRisWsH9BI7CbfFoLSUsF1cq8fcWa70yL+lauQrK/YDeDOE 8n2JXemG9Guev0jdDZ0WbAi6dnL0g/OMYDzOCw8oUZO1gMBYoksbHFMd5mIFhFTxhCUJ3sw05tmGRDOg EeiVoct1fQ9fmtbFMS3yabTrJXqhKVFqDMiBcONU3M 8frlpSLs44V1wmbVyTsfjGWokymi4YvD07IwokHkvOWEbCnF25aRIpgDPeOYYvW1WqV2aEvrP2cweTZw +tyffD/jiJDyFhDZI4PmL7PKHjqST1iFZkhgu7OKJVMeHF8SioQNr4ahalOcX8GbjgT/tObXoi7ahJ+S Io3yhxrTp/HqOskP6Md+EkDcAW2RQ55GluZeFq6Unk X+PFPJRUOP/8lRVqFhTRdu8H10h7GgcLl2/D8Oz5/BjQ8FG9JBa0q/sOfVXJhgX4fOjBG3jipZnQv3zE /EPqL0Fc5E/FNB/0qo6IhQ03UF/JjLNRHgHaBbKaS81yhur55A1gqpy38XDd1Qw1dvwdsOu4Z8r81Cxx Rl8XX8UvFB4++dx4NUjNq6t+m2OsXVlUU2rs+fglyk 1VkDXi+1PB0hovRLj08hMgCe422UR+vToIPwKlWo/P58cfQDC5LBKVVRcEQkGB0gAf5mWyfYMtFMfuIJ ci49Vtje8W0Y8Q2t5dOWK/zpfENlej9s+mrqQNLZSomG82DngRsjkuAZfDpHStQFc5fBY3qcMteE6Ifz hu0CGVBlxZzHP46HEVZLBCEWI+YWxYJTPw2Y0H01i7 [file] iacHbabyR1apDqPIcV1LVTAkiJoSuyTaTRKRg03NkiHqENCXUfF8ueLdCkMdYZGVJSN2hfc4FXrh+José Miguel [file] iXQfCh6HUcDiAyjKPrLpKV2ESLc= ID Date Data Source [id number] 06/14/2021 11:04:53 PM EDT [facility] Name Value Range Interpretation Code Description Data Arabella rce(s) Supporting Document(s) Care Plan [facility] ZNWBAv8sZsFDUhIg44/MEOisOFBef9QiDZipAPb8XHpbUPGyC9HdSUH8qE9gKHC7WLgEXvMlCaIkKBG9 lbm [file] MTgwOCAwMDAwMCBuDQowMDAwMDIyMjQxIDAwMDAwIG 3ULtGoXXArGeT0YKOyDWGhFQXsxc3XVTFjKICkPtw4MhErMETbVEBzTBphJNKzFQInKFJrHIJkSXRgBP 6RGsJbSSwlHKJWPsc9XDueS6b3VGAxQU1PN3Dwl2JmNeazSLBVMBybDQ7rlxVqHIKjIx2EX5oWBfpeOO WaXnF7QNPgZKTdMrX2IHhbUyCuAGQ4KoWdIpDcZQ5b NJUvRWOpIjTaSNVgM4WnKLtmGLDnWIF0Gnp9KzDsMlTgUaLgED3XZe4MVaA9RTZ6aWMvNw5AJtVlBPZU CqAxQQ5WLGa= ID Date Data Source [id number] 06/14/2021 07:02:22 PM EDT [facility] Name Value Range Interpretation Code Description Data Arabella rce(s) Supporting Document(s) Nursing Note [facility] GSAIHa4kCxYLSyEn85/TPCpqCVHwo3MvQDwwNOy6UPkzFHGqA0TvEVG1eC2bPTC0BQaVDgBeGxZdCBI3 lbm [file] EYEaFdQR9WZKl= ID Date Data Source [id number] 06/14/2021 01:09:13 PM EDT [facility] Name Value Range Interpretation Code Description Data Arabella rce(s) Supporting Document(s) Care Plan [facility] NKALYu3kRsJAMiCi23/TMFqgYFBxj5UqPVbcHPw0XDuhZUQeU8VsMQM0vB3tKQF2PDtVDnJsBtWsAEI2 lbm [file] dynamics ax consultant+4HsWWufUVPyA9kAOh5+33/2HAJtqUETnv9I438 [file] ICAgICAgICAgICAgICAgICAgICAgICAgICAgICAgIC AgICAgICAgICAgICAgICAgICAgICAgICAgICAgICAgICAgICANCiAgICAgICAgICAgICAgICAgICAgIC AgICAgICAgICAgICAgICAgICAgICAgICAgICAgICAgICAgICAgICAgICAgICAgICAgICAgICAgICAgIC AgICAgICAgICAgICAgICAgICANCiAgICAgICAgICAg ICAgICAgICAgICAgICAgICAgICAgICAgICAgICAgICAgICAgICAgICAgICAgICAgICAgICAgICAgICAg ICAgICAgICAgICAgICAgICAgICAgICAgICAgICANCiAgICAgICAgICAgICAgICAgICAgICAgICAgICAg ICAgICAgICAgICAgICAgICAgICAgICAgICAgICAgIC AgICAgICAgICAgICAgICAgICAgICAgICAgICAgICAgICAgICAgICANCiAgICAgICAgICAgICAgICAgIC AgICAgICAgICAgICAgICAgICAgICAgICAgICAgICAgICAgICAgICAgICAgICAgICAgICAgICAgICAgIC AgICAgICAgICAgICAgICAgICAgICANCiAgICAgICAg ICAgICAgICAgICAgICAgICAgICAgICAgICAgICAgICAgICAgICAgICAgICAgICAgICAgICAgICAgICAg ICAgICAgICAgICAgICAgICAgICAgICAgICAgICAgICANCiAgICAgICAgICAgICAgICAgICAgICAgICAg ICAgICAgICAgICAgICAgICAgICAgICAgICAgICAgIC AgICAgICAgICAgICAgICAgICAgICAgICAgICAgICAgICAgICAgICAgICANCiAgICAgICAgICAgICAgIC AgICAgICAgICAgICAgICAgICAgICAgICAgICAgICAgICAgICAgICAgICAgICAgICAgICAgICAgICAgIC AgICAgICAgICAgICAgICAgICAgICAgICANCiAgICAg ICAgICAgICAgICAgICAgICAgICAgICAgICAgICAgICAgICAgICAgICAgICAgICAgICAgICAgICAgICAg ICAgICAgICAgICAgICAgICAgICAgICAgICAgICAgICAgICANCiAgICAgICAgICAgICAgICAgICAgICAg ICAgICAgICAgICAgICAgICAgICAgICAgICAgICAgIC AgICAgICAgICAgICAgICAgICAgICAgICAgICAgICAgICAgICAgICAgICAgICANCjw/oKFgN7kouUBmwu B3E8yhQr2FUo2OVC7yu6VrKNTmVBrhqkWsUboHXcNqRHZpUrzVSzq3NNdxFH9QjYVwC4PnN7LrVCkhIO 7YBDRxZHHsvFMzNWKpOPGiRcU2PIVqUZjhEI3KrBPw NHdrBDCsSEKvQyLhLDPpGZ0GMZLwT623yfTlCq3TEd0NWjEnRL6jhy5GJdanAJYsNpdHZph6BOplIC3C fUJwzEUpCBWwKTIFWcVgY5xbv2IwDwgrRWENZCqpHB9Cd0IeiHPsNJv+No7DMW0ly7GgHQdqORTpDP8f tr8BEGbGXhCcC7FkfJkuTQQmsuKhEGuuihQdaICYwV FoT1pnAFZ2pAIeSGTGZLL8VMWwEoScAxDaIRGyQZmwVAKCXNeXXgSiY6Sog0DdPxL5MXIcWgXuAKpaGJ ZhVlC3BG00fJjyPT3UWPJiBBRoCA28ZYX3QUEoNu9GOe5TOrKtIQ7uad9GLbtvSCFoTerDGqu1GCpyWZ 2MyYYuS9UdaBStb7gXNpUlA1GFICU3JQDkZy8ZUAZd SsFkMJRfQBzmFW0xLIRoQPDOxDakzlA6BY7OAD1pwuKeQQ6KZwXgOw0sTx9YStMsY1GkK7FvEYWzYZKA VDwsZZ4DFAmrRE8xRZ6Us5PNnEHlbP9keb1LUTLjVPNfSmazvl3TGuetX5M9vMrmHPYjVrtuIRNVVMix GT8EFNPoCKU7CWOhEiWfUCNYIkSmB92wPC0JW9Ngr9 4gXnE5ADJsBhPtQSoxPZ62sOdqbfZnyBStbUirKM2AYj1+DQplbmRvYmoNCnhyZWYNCjAgMzANCjAwMD BmALTwLBBkKyT3IlSsDi7POTJwLABgALBzMeMtHJHdZWRuZOtuJMAgYGKzLNUrLQQlNSEiOB6XQvJzMM ReGjU3IzLqKKGqUNJsov3KUBZuAHKaFLF0KdLsXBLi ROPhGLgeUDNxGNMgREQfVCMtOWGpMB6GEpHcTLBeRUEhRGZyFMXtCFWuma5QLFEtHJIdAnLdPQPvMKOi QWQuOYkyIPWcYZPgEpL8LHNzJNUvVJ9JSzCpCKYlEXVzFIUwPAWlYOAskr8VQBLrFFOdGGO1HmHwXZJt LVZoJMkpKFLtVCK2QNugFXVgSNVkSI6MItTuFJPjTQ E5ReHjFPBfAJMicr6HYRZtPUGqTBgrISOsJITxIYXzNXqnCQKwZJU3EAYbLVBlMKYiZH7IDcRzSGSxOM wfIcUpPFExGLInxk5KEHAmXENoJRY7TYEdHHSnZUSdTWxwVLQxCJD4Yhw0GBHvOIEuQL8VIvVhKDGnFF nyQkqqJIOeXJXglj0OYLJjFIGlWJW1QmJzKIXvTIHd HIudBWEwOODjAVX7BYGoNRCkYE3IXkKqAYBfJhBrFWCtJWVvVLDopb0PXLLoONVrCPL8NMKmJVPiFUMz YDvnCQWeYTJaVRTlVRZjYFOaFY9FPiKeLXUiWkT9WyCsDEXjXXPpbr6XRWOrOEHuLOg0AATcCEWnOPJj TDrsIWRgTKHbAcWdHCAmORZhSM0VHwTxRLUeZrZ1At MtGBDxYNDhpa3QYLUcUSKyTjn8ReIyROQnWYGlLMylUHSnHSAnOOf8LQLbQMZlVM3BVpLfHLwuUVDPMo e7GSfxB5w4YOUxYG2UV7Xba3TrEbiqCYKMYMiqVZ5eqqJcEKDvKo9ET2qUPle6NJXcKEWeJcWiHGNvVB YvHkGyLwRpWURcM6R3YLs5EX7jMIPxHtClSRQxSSIe FRDbBaTsOFE2KJInBeRuGTOkYxJ7KoEqRF0QIa1YExF5FGT0bSRuBy2JKiRjPlWHNvFbCE6FIHk= ID Date Data Source [id number] 06/14/2021 10:40:29 AM EDT [facility] Name Value Range Interpretation Code Description Data Arabella rce(s) Supporting Document(s) Progress Notes [facility] HAICOo3xWnPWGvIc83/GJPllWPCjo2UiYQfbNWe3PSyoKYDjL0HeYIS4sF2yDOO8GWvJLaRrYyTiDOJ0 lbm [file] AgICAgICAgICAgICAgICAgICAgICAgICAgICAgICAgICAgICAgICAgICAgICAgICAgICAgICAgICAgIC AgICAgICAgICAgICAgICAgDQogICAgICAgICAgICAgICAgICAgICAgICAgICAgICAgICAgICAgICAgIC AgICAgICAgICAgICAgICAgICAgICAgICAgICAgICAg ICAgICAgICAgICAgICAgICAgICAgICAgICAgDQogICAgICAgICAgICAgICAgICAgICAgICAgICAgICAg ICAgICAgICAgICAgICAgICAgICAgICAgICAgICAgICAgICAgICAgICAgICAgICAgICAgICAgICAgICAg ICAgICAgICAgDQogICAgICAgICAgICAgICAgICAgIC AgICAgICAgICAgICAgICAgICAgICAgICAgICAgICAgICAgICAgICAgICAgICAgICAgICAgICAgICAgIC AgICAgICAgICAgICAgICAgICAgDQogICAgICAgICAgICAgICAgICAgICAgICAgICAgICAgICAgICAgIC AgICAgICAgICAgICAgICAgICAgICAgICAgICAgICAg ICAgICAgICAgICAgICAgICAgICAgICAgICAgICAgDQogICAgICAgICAgICAgICAgICAgICAgICAgICAg ICAgICAgICAgICAgICAgICAgICAgICAgICAgICAgICAgICAgICAgICAgICAgICAgICAgICAgICAgICAg ICAgICAgICAgICAgDQogICAgICAgICAgICAgICAgIC AgICAgICAgICAgICAgICAgICAgICAgICAgICAgICAgICAgICAgICAgICAgICAgICAgICAgICAgICAgIC AgICAgICAgICAgICAgICAgICAgICAgDQogICAgICAgICAgICAgICAgICAgICAgICAgICAgICAgICAgIC AgICAgICAgICAgICAgICAgICAgICAgICAgICAgICAg ICAgICAgICAgICAgICAgICAgICAgICAgICAgICAgICAgDQogICAgICAgICAgICAgICAgICAgICAgICAg ICAgICAgICAgICAgICAgICAgICAgICAgICAgICAgICAgICAgICAgICAgICAgICAgICAgICAgICAgICAg ICAgICAgICAgICAgICAgDQogICAgICAgICAgICAgIC AgICAgICAgICAgICAgICAgICAgICAgICAgICAgICAgICAgICAgICAgICAgICAgICAgICAgICAgICAgIC GtNFIuNZLfTKEtIMToCDZuNUAhSFBeJQIrVVh8P1iqOCVfLKYoMM3tBFr3Tw6+QUnIEiRxMMY1kmYctO 5BQC7no0MhHPhcBSHto2KdKJj0YK9DBIQfRIwcTW0S XWgnuy3NGVCpMPKxhEIIm2nxLwCbDLH3BDIxVarmBS8UTSXkK8lgbjMzPUEmJYDXLKaxAUSFXJzbJXVG GG0AHcUbW9TikR31UJIQQn4+TQyusvJtXewYVfK2DBXqb8FwHSg8UH3KRWPbCallo2CpYdqbQPUBJJno YD0CJJF8JHR3DVCnIo8ZLYPmE808xfUaJS7ZYl7CWp WeXB4qob5NXpqgXKTgUvoYAqn7CAjxSK5JmVDcCNoKkf8cjpOhlcYEh4YmgcVryNRGxtxufYLiEPZAz9 mwVJJOFkJeGUEbBXTjQw5aLZYfOIU3KvFpZAMVLQ1FXTIkMRPwvYNeENBeMBSAFW7PKCrwYUM2Eghmvb HsqSHwKXkhPX6QRAXyhkZcZupxKHCJZQq+Py0MDB0r w4AhKZraKSNhGE3kha8PVFdJZcVsL0O7xUOxP3L8BPjxRx6NSMSlIKWwIrOfOJQTPDwtVR8FQW2bnvR4 HD4UyQPhUNYvHCMsrIZcJDs2K10mlVRzRFsrEH6AMSF+Mau+Ju7JOAKtVSJtUIIeSgZgHKNVVvRyI3Ji A0KJy7CvF1SsFD27nTaigbYdOWwnUO1YPE4tEVJgBW TJPG9RjXGzhB7acdHaCgShASCJUeKdT61wsBFlOHKoOYJ4AVXaVi5QURAzG7QpqtAklIzqgcJuCUDyKG ESZQ6YSUokwkRdlVDtkUnrZK86oTxhPC9TSu2QToQtCE7sla0LxNKaEm6JKXT8VA3CPXAgQTInOHKzFO H6OVHmLyScWUwiZLAcSLZeLQN4XQLdEVOoOJ5DWxIy FNKuSjZ5NsilSEHrBAEgpo3FBOOeCVGzJPx5VcVeUGWnGERyIQwfYTVjFWTkMAZ7FMWwBHGvVR7KYoGy AFVfYBZxQaLbQMSgXUOakb7OPZIdOTOaXuGtCSLhTAQwERYwVNiuJASrXGA2LIjlSJYjJNXeQN5DJoZf LUJhAZIiLSBoTFMgGLOhjh8SACFvSGKrKnz9XHBbZL HsHVVwITbnHLZhKSR8NTa2PRHzZLEeTR0SVlCbJXUiXZajKOYmALUyIVDtga3QYIUyWIDrREC3NhQtHV ZjZAFcKCkjCDDtQZU4DCM3OWAvNKPxRD3NIwUyEDCaYAnvYYLyOVZzONGtda2YZBYiBDZkJQP3XNSkMO SeCIFqRSivWFHhRKC2Xqg3HMAtEEKaPD4CWiFfNJKp CSE6VzPfUDWkZPVbhs9ZMSGjOEWhWUicTzEpJQUxACDkQMrdBMDfUVXyGBO3LEWdOJLtKF8BOjMyVQYg TttlDEUbXJGsZFSadh8ALJPoJXYzLpe0JnQkNKUbLBTyPFqdWMAbBWO0ODw5PTQrFIEdFG0PAsExSVQb Qwd2RmUyAMGrZUNado7ONZCkZBKwUVV1TnZgIXOtDO AaFJnsMPZxXNS3IRY0DMQmXNYrXV9IIcKxSEAtEcp0QRwlNLQnQOQrnn6HMPRyHPOgAMn1FgHgQFQsNE VrFCvnXQMvNJTgUDC9AJHbALXiAE5CZvKdJGTaGjBsURQqBYSsESQozz0URIYcBXZwYWR9IGQoMPZcQL CeMZchUOVuJVZ3ODMmBHFuPZSdHJ4DSiPrJAHpXyBh FXthASGkOHRdbl5ONGXrOYXePoL7EOBdXJIhXPJxKRmwLHIcFRQ7ODQnOWObINZtKW2ZOsWmVAZbFxL9 PEwtXCBhPUTqiy0AUPPmANImLqDhGeWyEDKoWABuHKceDIEbXGI8IUdeRSWaQMAvBT5UFzLtQLVkPuw3 RDAsLWImHUShnh2LETReYRNtHOI0KkMmLLYfHOFxXK n2sqAbkPRoRYe0BV9ZK5VwqiAdEIEURh6Hy086SOE7KXOwKr2EF8tmGl7fBIOiTZRLWg2YXOb3Rtv9XQ WmChD2SCm1SGm8PcXaMWBkOFP1HyR9CapkOJW+CIw9VYt5HqG1QSzhZGL5RXa1MYHkZVN1JwYtDnLoQD O5BD8zZUZTPn5+UTulbQAuqZsgUXILUrO1ThK3HLbxYICKId1H ID Date Data Source [id number] 06/14/2021 06:08:51 AM EDT [facility] Name Value Range Interpretation Code Description Data Arabella rce(s) Supporting Document(s) Nursing Note [facility] BGQSZy9gXhUOOyZr77/RUTkpVPJth7KtGVuyAZs3XJdfTKGnW0KbICA0bA2aFDG5JSwPBjHcToRmZDJ7 lbm [file] On1KDvI2IetFPbGhPH4NFKa= ID Date Data Source [id number] 06/14/2021 05:18:23 AM EDT [facility] Name Value Range Interpretation Code Description Data Arabella rce(s) Supporting Document(s) Care Plan [facility] BDSOFr2vNzNGKzRl81/JCMxiLOUoy2OkWRldWDj2BYgpDMFlW9IxPNC8xA2lBGG7ZXpPVhYaBsJfSKG2 lbm [file] AgICAgICAgICAgICAgICAgICAgICAgICAgICAgICAg ICAgICAgICAgICAgICAgICAgICAgICAgICAgICAgICAgICAgICAgICAgICAgICAgICAgICAgICAgICAg ICANCiAgICAgICAgICAgICAgICAgICAgICAgICAgICAgICAgICAgICAgICAgICAgICAgICAgICAgICAg ICAgICAgICAgICAgICAgICAgICAgICAgICAgICAgIC AgICAgICAgICAgICANCiAgICAgICAgICAgICAgICAgICAgICAgICAgICAgICAgICAgICAgICAgICAgIC AgICAgICAgICAgICAgICAgICAgICAgICAgICAgICAgICAgICAgICAgICAgICAgICAgICAgICANCiAgIC AgICAgICAgICAgICAgICAgICAgICAgICAgICAgICAg ICAgICAgICAgICAgICAgICAgICAgICAgICAgICAgICAgICAgICAgICAgICAgICAgICAgICAgICAgICAg ICAgICANCiAgICAgICAgICAgICAgICAgICAgICAgICAgICAgICAgICAgICAgICAgICAgICAgICAgICAg ICAgICAgICAgICAgICAgICAgICAgICAgICAgICAgIC AgICAgICAgICAgICAgICANCiAgICAgICAgICAgICAgICAgICAgICAgICAgICAgICAgICAgICAgICAgIC AgICAgICAgICAgICAgICAgICAgICAgICAgICAgICAgICAgICAgICAgICAgICAgICAgICAgICAgICANCi AgICAgICAgICAgICAgICAgICAgICAgICAgICAgICAg ICAgICAgICAgICAgICAgICAgICAgICAgICAgICAgICAgICAgICAgICAgICAgICAgICAgICAgICAgICAg ICAgICAgICANCiAgICAgICAgICAgICAgICAgICAgICAgICAgICAgICAgICAgICAgICAgICAgICAgICAg ICAgICAgICAgICAgICAgICAgICAgICAgICAgICAgIC AgICAgICAgICAgICAgICAgICANCiAgICAgICAgICAgICAgICAgICAgICAgICAgICAgICAgICAgICAgIC AgICAgICAgICAgICAgICAgICAgICAgICAgICAgICAgICAgICAgICAgICAgICAgICAgICAgICAgICAgIC ANCiAgICAgICAgICAgICAgICAgICAgICAgICAgICAg ICAgICAgICAgICAgICAgICAgICAgICAgICAgICAgICAgICAgICAgICAgICAgICAgICAgICAgICAgICAg ICAgICAgICAgICANCjw/wZIjT2dqsWPybxP1Y3nkOf2QMt5BJO7rf2WaNWSrMSuwqvFrLnsYIhCfMCCj KlzSZps7ZUyjUD2IyXGgR7HuQ9JwBWdbWP9JNZSxMY ZmrSPqTBRkPSUzLeT0GDQqPHwbQX3NeDGwSZzyAMJpWMRxGpDaQZNfDA5MLZTsT831ctCpVa5CPm3VJb XjLT7sqk4TWmQgZPMrQbdLOnl9BFaiGX3WnGPuuXFiVuXlZRNXPxYlU8ptd0FsNmSpLJPYUMmuYW3Pj7 VudCAxDQo+Vc8QDZ6zb8PnBYhsSeQvUW8ntz8SXNtZ SpBjX4ZmyEqfYTDbxzYgQZcnliSvfGQSxKWrvKDlZeIwe0AgQAWdHHNGZZM4UENmFxXgNjGoZPVcZHaa FPFAKZsQQnRlK5Pdg4EdKmP3MSKxSjMbNPaaRWKlFvY8HV24mIfcLO8ZOWCjZKKpIY74TXMlSYOxAb9N Kr1GInEkDV3gfo1IAqNkMJFfZiqRWoj1JAxoZA4JnU XyY4TttGDum5sKKiVbE0QICPGaNWSsUz5LNHDkSqNfUQLpGJowVR2uLFAbHAJKhAsoduU0JE4KKR4abr XsWJ0QKuZvDh0sLg3XEjZwP6TtE5BjUMIkRPJRCRevGO9SAAqxKA7cOI8Vt0OQkSKacO7eua1XOGDwTF XqDnqcjs0NMagkK0F2mDfoQNCxSxUvWZJWFMndSS8Y MKZiKDX8CKYlRXGoXXYJCmYzC21zVV1OG5Lzk65tDzG6DPFyMrYsJCavMH70nJpdknBqdBPhcSugNO9L Cj4+MOabzrJtNeiEEgluBHNBMcKhGkFEYcTmOPXkTMQsWUUpLjS0NiBtLu2TECCpDALyFLKvEcZwKDGu PZCgPXygKAJsTEXzMOQoTMOdTUKuBG4ZWfAuPTUcRG Y0LapwBQTzTESyjz6OMERfYKBoYUZ0GjNyNQQxAECeCMzrKRJzDXRvLNkfESRiEGVhHF8XNuYdBAOkZH S0UVEvVKIsRXJdhh9ETOUlOLUmGjIaVVMuIPFeTZGqHVwzYQTyJUGbPUA7EGDnNQUxPU7SFyOpXBGlGV R1VEplFRFzFTRyja4VNNCpIUPuCWf6UKRaRSMdGXNl EPdbQVPgWLX9SVb4RSNoEDRhXO8YSkSsTHVtOTDrQVToPOMlYUTfem2OWOUgCJWnBmI1HFCmFKUvAFEc VZlbPIXrVYU2WJO2RATpIQLuWR3YQoCxYLCrASh3BuNkMCQuDZYjau2ZJYTcIURcPPN3TCVfOTGhOTFo RYwwQNSlVVU8Ivp3DXLnGPWzAQ8EFhGoIKRnOQu2Ze idFYKcAUAlby9BWMVzUQYlJIo8YRPsFTObTAZrQEcvOILyESZlGfJ4NWXkZHQhQD4JBpMeHAIaJnW5Mw XbUYDrXFAtui0RUKUbAFQdLIMsUNTcCVGxRYYeJIhaFWEqPUPsEFJdVTUeLGToZI3JZyDfAHPmSlUtUk asUBVtZYAniy1WVYBqBDIvCxLsBNEsMATdHMQuPLgh ZTTfSZU0SOioPVKxBBAfCT1AXlOmLQHpHmnbAnWpZUAwKTRoww5XRTGzJALeLGTwCaQxAZRgTBPtXZlh VHYdWOJ4PRcrIKOyZGYxGO7QYtEwPIWrTGNsYFDjEBNlAZJlgd7LZSFuKDC6VHG1GHEyBZOhEGEeAAuw ZEDyQCPwUHRtICQsOKLmWR1FFeJyOFTtFNGyPLOzUH SxFUAbnc7ZOZPoEMQ4YjD4SGPfULYsTWMaHYa8snXjzTAgTWq7EP2RE3DhrlWtElFOEm0Se733BBT1UV KmZp2XW5bkSq3tFRScNRBTSf6NCLl1WnHxJjj8QHUtHHHuVMKlFsHdNZpgJzMzXSCoIcHqSkN+IDwyMD ZlETX4JDZ2QCLbFNZnMECaUSTyNuV0PLLtLeNsNx1z XSANCj4+FVlpoNAteAvrMGONCwDkIKpwDZmrBVJAUy2T ID Date Data Source [id number] 06/13/2021 07:23:07 PM EDT [facility] Name Value Range Interpretation Code Description Data Arabella rce(s) Supporting Document(s) Anesthesia Postprocedure Evaluation [facility] VMRPAj9cFjWOLaPh89/WTDhoHTPmd0ShLVsuADw5ZMppOWWrB7MfCBR6zQ9fEDD3SFaOZeXgJdXjFEK7 lbm [file] P8WB1kBPKYWw2+JEuziXGscRphURYIPbOpEaJgYPgnESSCAn7T ID Date Data Source [id number] 06/13/2021 07:16:51 PM EDT [facility] Name Value Range Interpretation Code Description Data Arabella rce(s) Supporting Document(s) Nursing Note [facility] JXHPOr1qUePUDkOn99/DGEofZKXrf7CpMYvuMLj9IOjmSWRpV9HyCPB9kZ7lYSZ1DWbJGkMqZxGkPXG7 lbm [file] YIA0GkMdJJo1Dxs8XSB3RKC+VE5eJEg+Sh3Rk9GaibV8gyPxQMpjYXD0HT5EIWIEP4CBVg== ID Date Data Source [id number] 06/14/2021 04:48:00 AM EDT [facility] Name Value Range Interpretation Code Description Data Arabella rce(s) Supporting Document(s) Amphetamines, Urine Negative Negative Normal (applies to non-nume ny results) [facility] Barbituates, Urine Negative Negative Normal (applies to non-numer ic results) [facility] Benzodiazepines, Urine Negative Negative Normal (a pplies to non-numeric results) [facility] Cannabanoids, Urine Negative Negative Normal (applies to non-nume ny results) [facility] Cocaine, Urine Negative Negative Normal (applies to non-numeric r esults) [facility] Opiates, Urine Positive Negative Abnormal (applies to non-numeric results) [facility] PCP, Urine Negative Negative Normal (applies to non-numeric resul ts) [facility] Methadone, Urine Negative Negative Normal (applies to non-numeric results) [facility] DrugMinimum Detection Threshold (Conc.)A [id number] ng/mLBarbiturates 200 ng/mLBenzodiazepines 200 ng/mLCannabinoids 50 ng/mLCocaine Metabolites 300 ng/mLOpiates 300 ng/mLPhencyclidine (PCP) 25 ng/mLMethadone 300 ng/mLOxycodone 100 ng/mLNOTE: Phentermine may interfere with the amphetamine analysis.NOTE: This urine drug analysis is a screening procedure. Presumptivepositive results are unconfirmed.[facility] recommend submitting positive specimens to areference laboratory for confirmation. Oxycodone, Urine Positive Negative Abnormal (applies to non-numer ic results) [facility] The above 9 analytes were performed by [facility] [id number], ,[place] [address] ID Date Data Source [id number] 06/13/2021 03:43:30 PM EDT [facility] Name Value Range Interpretation Code Description Data Arabella rce(s) Supporting Document(s) Op Note [facility] TMRVPe9pWmYLMaCm17/LPMbaZHFft8LgGOyzUMo7VXabSQLpO1CmROJ9hI6bPMI6QXxGRmFoQyXkNFY4 [facility] [file] CdSwHxCtZwWlWB4JXy3YQvK6WJK7cTOjOk1HOwo8EVLMNyFcUS6PNRl= ID Date Data Source [id number] 06/13/2021 03:37:22 PM EDT [facility] Name Value Range Interpretation Code Description Data Arabella rce(s) Supporting Document(s) Perioperative Nursing Note [facility] system JWVEDd2tGaCERuOp77/OWGohXIMkh7PhNQpaTHt6ELfaUAMbL0UnXKO4fN5dUIE3XWyUPeAjBgFbLFS1 lbm [file] DGjsTCN6GWWgQTU+ZN0aXRx+Kc3Jq9HtgmB1jfOfPVvgTAc3PL1JXZEQX4DVAp== ID Date Data Source [id number] 06/13/2021 03:31:09 PM EDT [facility] Name Value Range Interpretation Code Description Data Arabella rce(s) Supporting Document(s) Perioperative Nursing Note [facility] system DRVDXc2wEbWHXiBl60/TTAnjPBTwb8JwBWvqLEb8KBxlYCSjO0QzCDH7nT6cKOQ1UJcJFtSwKpMqCAU0 lbm [file] JiQ8ZzmrHRZeDyosHQP+KZ1xXBy+Jm1As4VizjP4noJmZXlwABs8Oa8ZAZDFY3KCUh== ID Date Data Source [id number] 06/13/2021 02:59:29 PM EDT [facility] Name Value Range Interpretation Code Description Data Arabella rce(s) Supporting Document(s) Progress Notes [facility] YZUFUx9bKoFFCpYz67/EZVecNJVwg9YnIRzfQUk7STzjTVIgG3VsIDU0eS0oJUX8WPsDDmSjCoCwSDM1 lbm NdZvcRVrIdYCZbNrzEKnVjEBroWjlnyTGeJL1DuDT9TFMbC78yZDWiCDPbZ3SbVHUmTCY+No9WKQUvvL ZtOA4BWseI6KagjgS9UV4bZT+Dpi/USZCS4wClCr48gr2XETcnpqkh3BRNe9JnqwH13AAJs07toD2V3n lpqY2V1GWlNI40TBnssab/vROHqZFSivX/zcc01+Ji Vp72FgmWUQhmkUmVIZTegQtdDx4mH6qa5i9LmUNib/1bjtSLUiODjofVFQZTs1QvLCSbl+xm8TrDI/B1 EnoljK3BA9+fXESeWo8Coos3b+fMn14DgVcO9q1sw0Gez4QUBSUly0mexIz4hZ8Vwr2Dr1KW3vp3dAT1 sUbLxgagrM2u8dBe7IG2cdXD8nUEikgOGolmuhN4dP 3IBaAtpnJqUMDAtcgLOnuNnUyNDMzoZwchMJjJEIeo9TLIg3ZykdISVfZVA8tMNL5j7wDRSRPTa89qcU 5Y8WnGQF2plDwH1OnLm6ohwN/XHm/Xi5BmoQcPt9nsyKuPllcwgJtoqjBxZWMhuzAw6F6pHa1I24P7T/ MGLIaz8YlbLBNS60kAVVPK3kRxDQdFtzV6KIBNwpGC [file] ICAgICAgICAgICAgICAgICAgICAgICAgICAgICAgIC AgICAgICAgICAgICAgICAgICAgICAgICAgICAgICAgICAgICAgICAgICAgDQogICAgICAgICAgICAgIC AgICAgICAgICAgICAgICAgICAgICAgICAgICAgICAgICAgICAgICAgICAgICAgICAgICAgICAgICAgIC AgICAgICAgICAgICAgICAgICAgICAgICAgDQogICAg ICAgICAgICAgICAgICAgICAgICAgICAgICAgICAgICAgICAgICAgICAgICAgICAgICAgICAgICAgICAg ICAgICAgICAgICAgICAgICAgICAgICAgICAgICAgICAgICAgDQogICAgICAgICAgICAgICAgICAgICAg ICAgICAgICAgICAgICAgICAgICAgICAgICAgICAgIC AgICAgICAgICAgICAgICAgICAgICAgICAgICAgICAgICAgICAgICAgICAgICAgDQogICAgICAgICAgIC AgICAgICAgICAgICAgICAgICAgICAgICAgICAgICAgICAgICAgICAgICAgICAgICAgICAgICAgICAgIC AgICAgICAgICAgICAgICAgICAgICAgICAgICAgDQog ICAgICAgICAgICAgICAgICAgICAgICAgICAgICAgICAgICAgICAgICAgICAgICAgICAgICAgICAgICAg ICAgICAgICAgICAgICAgICAgICAgICAgICAgICAgICAgICAgICAgDQogICAgICAgICAgICAgICAgICAg ICAgICAgICAgICAgICAgICAgICAgICAgICAgICAgIC AgICAgICAgICAgICAgICAgICAgICAgICAgICAgICAgICAgICAgICAgICAgICAgICAgDQogICAgICAgIC AgICAgICAgICAgICAgICAgICAgICAgICAgICAgICAgICAgICAgICAgICAgICAgICAgICAgICAgICAgIC AgICAgICAgICAgICAgICAgICAgICAgICAgICAgICAg DQogICAgICAgICAgICAgICAgICAgICAgICAgICAgICAgICAgICAgICAgICAgICAgICAgICAgICAgICAg ICAgICAgICAgICAgICAgICAgICAgICAgICAgICAgICAgICAgICAgICAgDQogICAgICAgICAgICAgICAg ICAgICAgICAgICAgICAgICAgICAgICAgICAgICAgIC VsBNJyVNAjNONzFGKpDVKxHXCvGNXfPBIiQGNoKTIiRHRgHUFvDAVwDLSlDSCoPZIeFSInHXz9T0ndZM KiUDNeXX4yOGk4Ok1+DCaIEbAfFGY6luLagL9FEW8rt9WwYIidOPRxr2ObHUt0GH7CNDQdOAbsEI3IMG pzwv6EXNZbIYXxuJDRc4bgStLzZUI0NVTdDnhfLW4Q AEXhF2flipNbMFWeMLEMMJ8GPkKwD9TjaU40WVSNBt6+KZozbiMzVdbVUhL5FHOwu7OiPDc8HY0NIEYi Sonoq1JzOdQoJETDSQzrQX2DDIS3REK5YUNiOi2LTBRsR789yvJhWW7CUv3UAzKnWI5spn9BIqTzTLFk HjgUOmm9IAscFU1TaAMlHUtFoy0rekJlcyLBi8Swlm MtrLKHTZB0POEsBR8jATG4HJToPbEzKxBnVREaZiu3FdEYWWjUYnJuC2Qod6JfMgH2DUPzLhClDZssXT QkSyA4CT62fZzuAT0GVDWqYLGjQG36KQG0CSFdPc6LOu5MZuKqSB7jdz6SLknaDJIcRhkXLip6ZQpuYE 4BuQHyS4NwaKYiz5wVAgEwI8BTCQLlKCGhXj6GOAXm SwOyIGUsMAwdVV5kXHQwXSIStOzyecL1FM9WPI2jxzXnRS3NOpGvQv9rAm0KFaEnF9JjT5OmIVJeIYJT CIsjEV8CYZrpVY3pON1Fi5QYvFDnkO0uut4UOSNzGCXzZifisj9OYrvmN0C1kBjzVEEwAfRyDITNFVti PG7BGDGpOOO2ZELhCUPeFGRIPqKaU90uNM2KT1Wqc0 9mUbY0BPLbEdSiFFtnFP91kAdggqDblGWssHnqAP8NWf0+DQplbmRvYmoNCnhyZWYNCjAgMjgNCjAwMD FoSONcDYImMbA7EdGuCd7AZIZtRKLcKVYjQsIsGHAmTPSiUHzoUEGfFUIrHgCzJLZlFVZmNN0ZYgAiLX XkRkP6OkSqMUYnEWByxu0HJFMiFAMuERY0PaOlHWRj HXRtGYkvHPYeTJYtYFIrTDLyMTZyBU7NDjGzCUYjTCR3QXdfXCWaWICybv2KKIMyYTYsZaJmRHSiZGSk WSSdLJeqTHAiMZWbPXD1TSObWBYaCS2VPbYvZIZrKEV7UYVnLMLlQERbab9BZRKjJQCiGUl9GDSpDSPb LVZhXLmfWWSdIVN2XHE5DJXlZNEvNN4GBrWeHDJjMT BnGuntLETwYGDbfb0IHZQbOYKwNhG5GSBtIYCuNWAeENxhWQJxTUO9YYk9QWMeNDQrGV7HEvGvTWCjWZ tjCXFeBSRmLIDgqt5PZOPmJQYjLEH4IhRqNWGgAPNlHUtdMHQaCUU2ZOn1VBZxPJZtQA5ILtNwWUWaTV k8AfSkXDMzEDMies5EBPRbXQZcGClkDzAmAWCzNCMf MRbkNMZiVXY7LLDiJJSvJYZwEW6CDpLyLEYkAdL8EUZwKFHsHFUsyg2RICLaOHVnMQXxBWBpDHUiZCCs ZUgqFNZgOHJsZdXyELJsFRVlMF2NOcHbLAUnGiP6NpQiJEMkYLQujd8XNQLzTCUzPlO6GKJsSHGmKSWw SLghSXRoGSAjFKIaKOJiPIAqWH7VHhHrHFGzApYhOQ WyPTFsRQRsim1DzGVpmRvvxh2HVTzDGq6AdItyYPU7XEdmOw5laZDrXbNmXFKRYs6WtxItWXGqIWQYDX ceWMIiJEMzQOGaHIGwPgquCCTuJ5KeNvfeVgzeVLDxIJp0AIO2FcN6VjYlTGA0KTTkGQOiNJMsQmMeNM T2HXCtHuPaVHKiLun+ST9jZZo+Xp0Ws6HswnI2hfExOEauYrBzTs1UKXBNS6OJGg== ID Date Data Source [id number] 06/13/2021 12:41:00 PM EDT [facility] Name Value Range Interpretation Code Description Data Arabella rce(s) Supporting Document(s) Care Plan [facility] MKICWj7cMuZTWtZh50/GCNaxGXQhv5NdAWmbBRr8YExxTHQnQ3VnFLN2gB3tNFG8DWiLCyMoWcBdSBS4 lbm [file] dynamics ax consultant+2XfXVydRXCdE2iNWr0+33/0WVWidOYIjb5G091 [file] ICAgICAgICAgICAgICAgICAgICAgICAgICAgICAgIC AgICAgICAgICAgICAgICAgICAgICAgICAgICAgICAgICAgICANCiAgICAgICAgICAgICAgICAgICAgIC AgICAgICAgICAgICAgICAgICAgICAgICAgICAgICAgICAgICAgICAgICAgICAgICAgICAgICAgICAgIC AgICAgICAgICAgICAgICAgICANCiAgICAgICAgICAg ICAgICAgICAgICAgICAgICAgICAgICAgICAgICAgICAgICAgICAgICAgICAgICAgICAgICAgICAgICAg ICAgICAgICAgICAgICAgICAgICAgICAgICAgICANCiAgICAgICAgICAgICAgICAgICAgICAgICAgICAg ICAgICAgICAgICAgICAgICAgICAgICAgICAgICAgIC AgICAgICAgICAgICAgICAgICAgICAgICAgICAgICAgICAgICAgICANCiAgICAgICAgICAgICAgICAgIC AgICAgICAgICAgICAgICAgICAgICAgICAgICAgICAgICAgICAgICAgICAgICAgICAgICAgICAgICAgIC AgICAgICAgICAgICAgICAgICAgICANCiAgICAgICAg ICAgICAgICAgICAgICAgICAgICAgICAgICAgICAgICAgICAgICAgICAgICAgICAgICAgICAgICAgICAg ICAgICAgICAgICAgICAgICAgICAgICAgICAgICAgICANCiAgICAgICAgICAgICAgICAgICAgICAgICAg ICAgICAgICAgICAgICAgICAgICAgICAgICAgICAgIC AgICAgICAgICAgICAgICAgICAgICAgICAgICAgICAgICAgICAgICAgICANCiAgICAgICAgICAgICAgIC AgICAgICAgICAgICAgICAgICAgICAgICAgICAgICAgICAgICAgICAgICAgICAgICAgICAgICAgICAgIC AgICAgICAgICAgICAgICAgICAgICAgICANCiAgICAg ICAgICAgICAgICAgICAgICAgICAgICAgICAgICAgICAgICAgICAgICAgICAgICAgICAgICAgICAgICAg ICAgICAgICAgICAgICAgICAgICAgICAgICAgICAgICAgICANCiAgICAgICAgICAgICAgICAgICAgICAg ICAgICAgICAgICAgICAgICAgICAgICAgICAgICAgIC AgICAgICAgICAgICAgICAgICAgICAgICAgICAgICAgICAgICAgICAgICAgICANCjw/cRNxL7ngxWTruj M5Q8gnOw4BTf1VZK7dw3LwLHRnGUvyavFjOlcICiJfTUJhWxiABvx7KUucMP2XySCbD7GcJ5PzYLuzJA 4FKWJoXKRcmZNyLITbVGGjLsC5PMPgLUjlOS8TiEJk MNvkWFPsBEQrHjMlWPXeEQ4TVFFrV012bkWePk4QLn4PGaLqSX1jmc6CXguzKPOwXkuCPey3CAzmQH1W eMLvzLReRACyHRHZGwOoZ7yrv8MyTymqUODFJKtvTI2Ch0TveKUmIRx+Yx3IUQ4bx8IiNXsgDKRgCV3z fe2OIWwPCzTdS1ZzzSxuQSIjfrRiMUkkozUcpIBWFR MkBTHep35iquuaQw7eQTHqRBQiOG9zWNFhRYDeUoPzWWRQZC5INCNfTNJalHWfRNNqYGDQGX4UNRivQP D5LtqyetKqiTUrMPvuNU9MQCOppwNgFjyfHXERMDg+So5QAZ1jj1KjEVptNDBxII4fwb9XOQaGRvRmC9 L5wHAxO4B6OLtpYf8NOMWgQNTaVkLdNVDFNUvdVK3C RE6zkuF3CV5GzWYsSDRkLCQikRLqEOv9D66kzFEuRPktOG3DRRQ+Mau+Cs1LDEUbXAOcHAMbRfJaOZEW HtVlC2NuO1TIb1NkY6TkJA59tVlldcUlCYckGQ5RMC9qLCCbRRGEDO0UnMMlvA5vcbLhXhJuTEUMMoZa I06bkIEbCXBtIGQ9XIFtCw4JREAhS9GlxvQiwNlmak SlDHJxKHHTIF8EUAhtwvZhkBHooKsdSD56gQvuFM9ZLa1PTzVtJB9ory0XxVVkIj6JGBDzOM8FBGKdGE AeZVKoEPM4CKXjWmFdUUvkJDSjHAFpENZ1KKHoNUMcCB3WBiOuYAXtFiH9UjDnSHSuYOPzow3LDMZpAV RnZeD2QxBoWVRfSCDxLZasQBRkJMEkBNG6EHKgZKNk NC0YMeMjNKNtHKJfSRHtJKAkGDAipr9EPQPySHKaDvG2HcRbYHIjZNImTAjfQAKzRMOsBNV6CLZsCQPa WZ2EXfMfNBUpUNOnJratWAZxOUYfhp3FXSNeMNGtLSR7ZjDuIYNqGPVgABokBRChHVD8Urn9IUQrDRCv LV6KMvDnMXJtUZT3HrHmOQNwBAPcpp1JKCPzFJWhUU ZwByElDEEdTAIgHYoqRNJlZHT2MqKuVVWuKXQrTQ6RFiXpZJUtHCS4VXAvMSIlXPQdwp4XJHUiDRVjZY E6VaBcRLNiRZJnXCjlFAYbMJW2AZk6LFZtCJTsJU1DXpEdUCIuFGp2JTtdEAGiTUPshi1KALFoGKSrJD BxHxPoZTRmSTFbQQasQLEbNTL4AAykQRHzPZAtXJ7C FkAzAGFwJoZeYCQaLDCqNVLgwy5HDTTcYGEdSXZuHeBmZJTgZVSaJWjgUUEyFWUtYTk4WZHkECSaSE8J KdBqKGNfDdL1ETVcLSHeHIEozi3NVYYqDNMiXTNaBdAnDBApVLShJVjcFFMzLNMzXpb4AAMnSUDdPM2C SpVzBSXgYpZeFpOmQCLvHDIzfb0KOJOvESGvFpE9Hm CoCAMnTAIeDJbpDOMaRRJhOxJ9MHIcRKUuWY3AOwOuWAZkTwU2MEskBJNvEAXzze2DvHJxcHfebb8JEX bFUj8UbSxqTHUnANraDl8ioIGmXHAiVTCZGn3TwpMlBDCuTPQKPSolCJEsOZc8LMItD5GbRHCgIrcxVI QwS1DoQuQrDVdlTEsfNfsaVfN0JkAqZdAfCNIjLRDh XBD0GEU2N2R1U6A9TZD1CTElQnD+LR8wALa+Go5Pv4QsdeU9tiHhMIocNTGfKm9NBPISK8BGUo== ID Date Data Source [id number] 06/13/2021 12:35:23 PM EDT [facility] Name Value Range Interpretation Code Description Data Arabella rce(s) Supporting Document(s) Progress Notes [facility] XICRZd9uJuPGLnRk64/XFMnwQTJob6DgZAsoDMk2CPddEGWjT4UiHKQ5sL5gDDX5FQyJGjAsCzXzEHF3 lbm [file] ICAgICAgICAgICAgICAgICAgICAgICAgICAgICAgIC IcLETvTXRtAQEsFGCbDCVfHZKfIEOwZTZyCQGwVMSiWRXcBDXsCR5JQPZkHOXqCKCqQUHuLCNhROYkWU AgICAgICAgICAgICAgICAgICAgICAgICAgICAgICAgICAgICAgICAgICAgICAgICAgICAgICAgICAgIC MbNAXaMRQiIGJdJUCcSOFcNYNbJM0DBPWaJXRuTNFe ICAgICAgICAgICAgICAgICAgICAgICAgICAgICAgICAgICAgICAgICAgICAgICAgICAgICAgICAgICAg VVOwQKQpKAGdTRJtYKBjGFXnQDQxTBNlFCXgLDUsUZ1DUFByAMFwYWFaZUTvVYUhVEPzTAOsNHZwIQJb ICAgICAgICAgICAgICAgICAgICAgICAgICAgICAgIC EiXISpCGMbFBLvMNFsLILxKOCxXXBrNIEqSCPjOVBnNJEkHMQgACVzZG6ZBEQbQAXrUZAzZJRmENCcNK AgICAgICAgICAgICAgICAgICAgICAgICAgICAgICAgICAgICAgICAgICAgICAgICAgICAgICAgICAgIC TfTMZrFUAqJGVjWBXiDDYcWELeLGNgXP4CVGLbAIQi ICAgICAgICAgICAgICAgICAgICAgICAgICAgICAgICAgICAgICAgICAgICAgICAgICAgICAgICAgICAg ZWKlYLBbQUOoXOXfNIIjOCUhAJXiYVMdIHFtJQWeLRXeKS1RIJPfZAEmSKHeGSBsSQIjZIDcKRVaBPMm ICAgICAgICAgICAgICAgICAgICAgICAgICAgICAgIC DhYLCsWUWqLAHlXITsWRTcOOVaKUHlFGWgZNXoIHCvGAIsMABaYGZmHPSmAE0MXNCtLNLsKLKoQLStOW AgICAgICAgICAgICAgICAgICAgICAgICAgICAgICAgICAgICAgICAgICAgICAgICAgICAgICAgICAgIC GvGEJyPDZoCZIxRARiIIGdTXRbUVVjGBUuTH5TDOWd ICAgICAgICAgICAgICAgICAgICAgICAgICAgICAgICAgICAgICAgICAgICAgICAgICAgICAgICAgICAg EOYfLFKbDHYmKGOuAXRbYKWeAVUlAHUsVYJoCMSoVKLqIUZjNH2AIAHpHFDiZJVoHVFiLDChUHCySKNd ICAgICAgICAgICAgICAgICAgICAgICAgICAgICAgIC PmDUCkMEDoXPSjBSDdNADeCZEvKDLaNFWqITGdFSLiBZAjVGBiVTNqKNYgRIFgMU1CTQ24yFAyq1G3YR NbNC7ktir/Br0OTCxaygPhjXYsIE8HXvPxHB0fsx4QUqKeNU5ajr9JVTnSWeOfU2F5fTRkYDJoKURMLb KiU17lWKbqJz38MDehLWAjCkZqKIz2Jc8OQyPtG1hv SZBiEgN8EJTiBkF8XUUnQlL3UQIxSqFyMLSsYLBxYB8ZMBHzN281wtQeZB3XPd3OEdRkCT6exi7XBVGd HMEyPvyLDfn5LRscYY4NhCAkoKQ8GpYzGUMQGnIdB5jbo2RpKXNoOTAIIMurVV2Ox0RdyZFtCPd+Pg0K PQ6iw0ZiQYh3HbJzLU5ity9SVUqYBeGeB8ZkaCueMX Xdx9jcQDZyMO7vdWDwWTA7OUKnkamgaIbmIXCWSPOpzHKfoVbuJYATPIBKLdLbiMBsZE86DzDnPdPdXG C7HqYmZE6iNLdePX2IHJP2QPxqLNSrMCOjQ1eQUiHgKAkgIMSseIbtOR5BUoAbM4VzaxZbhZU9OgPdEH INCj4+JUlsmpGiZbhBLwQ0ZXPjv8YjTKv8SW7CUXFj IUroFF0QZGDtsN3gQGnnOV0HDmO7VIUlWLCITxJvO81iiJUcDYi7O7FtIrOmAIBjEnkdXCAsULewCqOb ZXMgWyBdDQogID4+ID4+COtyPD7QIGmjzyCjLHItZy1CYDCqUUSbAO5dHXDxHULvW5R3hKztRFWHLyKo D1hjyjhpLO8iQJHpQ008uBkuroNuASPyGBFfEi4MRK CnQQF8EFTtpLHoWVZmYSTMJAcpLX5JhMPsQZE8wZ4kOJegBAThQSTwZ2vOVpHvaXqdQY07eTosstFrmE BdDQo+In6CCS7sf1WaVZq2nwTuIJjlOIZ2JDduYQJcBSWaAETdHRJ8VZX8UFRHAsRkWWUvHAIoDRnfQY GjCNAnhv3KLHStYEYpCTIbHgTfQZTrYPKfTOntZQMl CIW2MEN4YFLtSFUrPL3INgWkJTKzLDFtSCesDWXiOOHzjq0ZQUPoQZRxGkvkDOVgORQnYQKmERrnRAYv MAKgBLU2BPTtWAHqLD6DUePjFRZlCWAmSwGzYHIaVUDvap2XSGLrJYLeUGXrQJQiTMYcCKIuUSunBOYh EOR5PWfeCAYrCZAwPG3XSuXdBTCtAUvuAJdqMFLmJV Gvbc0AXQLsHPTgOMp1IzLuDLIdPXWfNYpdIAAnFKIoJQNdKPSkXXAxHD2RKnSxDWAwDZNePMTlJUHaVI Phdw5OCICsZJMeYNSjNrNnGCArAJIyALeiNFVmMQWcLTQfKOGlFYXfZE2AWvIkTUDrOVCfHrEhKTZkOI Ylhe5XANDaEIVsNjH1LACuWWLhVFRmICugWYZfCSMf HqDdENIeZNCyIF3FAlKpEICxXHF4MKNyIWGvRIToza8ENDQuTRYwXfxhVaXpALZpOJJcRZduVFBxBJW9 JHp5ONMbJQCzNW4UAqZjNZUeLBEmZOQmEKOaUKPndo0XRTYfEKKzWDW6BwDqZARmCQXtBAlaDBZkRSE0 GWEmCDXnQMImUR7DYnObCIFzBBZzHMzgGDVtFTCbto 1YHUPwVONvYbRmHKKbYFXcIZOhDCvbYTZlPSP8Dhc9EKUiQKKnQC4SMuJzYZUiRfRmORVrKNJfMBGxvm 6UTCSvKMVlOPFeERFaZXVbOBZiMAccYDAhFVTsTrN0YHSiVAUzBN0KRrLmQUTyZtI7PGBbVRHfLLTtak 0KMDAwMDAzMTAyOCAwMDAwMCBuDQowMDAwMDMxOTcw XHXaKJXaJN1WIbLfRKOiMrSoEpMcPCIcOIWdoy2YAZIaEIAuTxL0ZuAqGEGqARJbBBsmYLFsIWS2OYw8 MMTcOHPmQE0YAoVbDIVeOtl8UJZrAUOrOKVkpc5WXDVgTSXzWqcfYIXxMUBtRCAxLUpfFMHcXHD3JIK0 TWOxBLAcXG8NDuMlIQLhXarlUHJfMMUkNKJddf9CRY HlBHKmWWU3ZqSbFUAdUVQsAFtvESInBDAzPVAdIQFvRXRwDZ8ESeOjNMHfJJKwNqZpNBSyYRJlsb4SRC ZuLTN6HYZ2HsLoSMDgXGXjCDj4omYbqUZoNHt3VI1UP4AaejMgSWVRUg2Ib187MKX3RNQnSf8FF5irUb 6yCSJlGYMVYx0HSXe9AJSpPdBdKiZ4SqZ1DppaFLmi ZGMzOGExZWIwODBlNTA+GUqcFuY5LGZbYaf3HAcyG0ZzAIRoXaD7DCKyPsN1BIO6BV3vMZVBNj0+DQpz yWBirLpaRWWFLgJdIEW4ALibYIYGVo4V ID Date Data Source [id number] 06/13/2021 11:19:39 AM EDT [facility] Name Value Range Interpretation Code Description Data Arabella rce(s) Supporting Document(s) Anesthesia Procedure Notes Health system EVUMWx8sRaIGBsMa57/LMYhaLZGyk1IxVKgsBTo5CKvyWBUjE6NnPNY3vQ8qKUQ5YQsOCjIzNhFqXKX5 lbm IaHkaFHuDzMVDhBchYLvAlYVjnInprzINbEU9FpSB1SVSsR14qYMAjNKPbQ4NaYRWqLIo+De5EWQOdjO QaYZ2JSlkW6Yfph9JZXF/vTP+Hm+aBmHVMWi4hWG2VpTXbVPLTzA5wQCvRTTCuV5LBA+Bi82s5dvRpF4 seu8ntWfO7Fqrt54vkVbp9sn/EplU4nkyYm3P/k5Sz yYL9/VIxeGa3cwqlP8mODoZl3OO5aBeE+Pcf2E+DhEfor/xMxAlkygh0pW7EvLxYMPFEJmIyTQGMDs/5 c+FtB/A6cO9kq1xaq15sUs5dSar2Bo/nhzFn4/zR4WM2/rt4Tst0NpURAKepbHu5qR19iHr9Zk50VVzd fVTWSqmeLS3pvYwoD6CCr1BPIgLJOENeQVXEeujdOo ISMpaUSG+c9wNMXD76TpSdP7yrSbPbbmk3QGFE1wojwMeoG6ZORVfNl/2I2JLjLEj6EazNDgwLCBT+Mm CPTafI9gqm7sObwDpVxrNdvvBUQ4PniRld5lhcHu8Dni1Vhg5TX+Spni6xpqdSlcLw+1DQU4wtztqeEK orw9Ep4/1YBUs/VoKrPXb1WkVyH6dxf/ct2hx4y8GI JJeNG4roQn8xD4wrUy/q6oGStQ00ISwMgKbmWTd3Be00y2Lhe8wCbLuqOaXfemdB1dfMoRC3Am/m/a+e d8l/+3CVv73p/lA8S8bzgBi1XF4aFUj7wWtxwuFxKLixEwGEMDa09W7jwHKoxR2Kk8m9xk/KZwnfgg1k ClDh3oQbdU/BpdFc4R9uZ+jHMGRZ4/pXEhqMfRVcnB Jp6D/ocuD+4lWe/sr9ie9+k9p4IPr1o8TMcsE3NuQZj/yXN8DXk4Q4gPT3GioFR57oqWCh0Ux/Jackson+wi/ [file] AgICAgICAgICAgICAgICAgICAgICAgICAgICAgICAgICAgICAgICAgICAgICAgICAgICAgICAgICAgIC AgICAgICAgICAgICAgICAgICAgICAgICAgICAgICAg ICANCiAgICAgICAgICAgICAgICAgICAgICAgICAgICAgICAgICAgICAgICAgICAgICAgICAgICAgICAg ICAgICAgICAgICAgICAgICAgICAgICAgICAgICAgICAgICAgICAgICAgICANCiAgICAgICAgICAgICAg ICAgICAgICAgICAgICAgICAgICAgICAgICAgICAgIC AgICAgICAgICAgICAgICAgICAgICAgICAgICAgICAgICAgICAgICAgICAgICAgICAgICAgICANCiAgIC AgICAgICAgICAgICAgICAgICAgICAgICAgICAgICAgICAgICAgICAgICAgICAgICAgICAgICAgICAgIC AgICAgICAgICAgICAgICAgICAgICAgICAgICAgICAg ICAgICANCiAgICAgICAgICAgICAgICAgICAgICAgICAgICAgICAgICAgICAgICAgICAgICAgICAgICAg ICAgICAgICAgICAgICAgICAgICAgICAgICAgICAgICAgICAgICAgICAgICAgICANCiAgICAgICAgICAg ICAgICAgICAgICAgICAgICAgICAgICAgICAgICAgIC AgICAgICAgICAgICAgICAgICAgICAgICAgICAgICAgICAgICAgICAgICAgICAgICAgICAgICAgICANCi AgICAgICAgICAgICAgICAgICAgICAgICAgICAgICAgICAgICAgICAgICAgICAgICAgICAgICAgICAgIC AgICAgICAgICAgICAgICAgICAgICAgICAgICAgICAg ICAgICAgICANCiAgICAgICAgICAgICAgICAgICAgICAgICAgICAgICAgICAgICAgICAgICAgICAgICAg ICAgICAgICAgICAgICAgICAgICAgICAgICAgICAgICAgICAgICAgICAgICAgICAgICANCiAgICAgICAg ICAgICAgICAgICAgICAgICAgICAgICAgICAgICAgIC AgICAgICAgICAgICAgICAgICAgICAgICAgICAgICAgICAgICAgICAgICAgICAgICAgICAgICAgICAgIC ANCiAgICAgICAgICAgICAgICAgICAgICAgICAgICAgICAgICAgICAgICAgICAgICAgICAgICAgICAgIC AgICAgICAgICAgICAgICAgICAgICAgICAgICAgICAg ICAgICAgICAgICANCjw/wZYhV5sttAUgebL4W6vpQn9FFj2ZPH8mq3XdGIPgEUjhowXfMyuMAqGwNKUw DjtQLsg4JRkgCO7RbLMnJ1OsK2AvUUawER1LYSPxRAFshKQuKIUkDFHbIaU6YNOpFRwqZD5ShFYiEDgw ODPeEMHrOkDfOSUrER3SOQTeE345zrPfJf0PDy2WBw OuDA6nvy0QDmydMPJqPsiPErl2TOudRV8TwLAmgGXrYKIrJLTQDlNxN0oec9WqYvzqMUWJLBrzPX4Ve3 VudCAxDQo+Tg0ZMY9zs0YaNLydWIEuMM8wba8IEXgNNsAkT6PwtCiuJWWqZVX9aTKinBKnQVQdG6GgyV WcBV5pjWKmVJI3YSNoNRQpKMDiFD2pvaZcMQMSMmHt YICjCABzDJ6yKINzEUWlDmG4RKLRBU4REETsARWpnHTwQTQsUGYPBV8MTXkpRZV5PefayhOaiLJqZYvo WC8FCSXrryIgOjvdSVXSMNe+Wk2IPP3dq4ZxNIodFVPdTO8bqw7AUBiCUrHyH4Z6dSRdW1D9MCtsGu8J WVJoAHPeHhAhSQVGQNwlKV8UGJ2hqeV9QD6GzSPlLK OnVSSieOXeEEu7C22ozHZlREnvPK8OQPZ+Mau+Fn7FKOTrJWKdXGVoRyHvOZRXUxFbJ5DgC2ZRg3XrK2 CyAI07zEstcqUuDOsoPS9QUJ5fKKMlZEBFQY0UtAGiuV7jdiNzNrPmYIOAKbZjP58bgOMmQKCzKLE4FW EuKb9BTJRrT1FizzLnrOeqwrRwWLEtEAYDBI5ATEgd avArkUDxnLonOS80lFunAJ4AVj6HKgGeYM4vrf4DfOZgBj3MBNDkYZ7IHUHhMEEqDQZbKJI2RUSaZlPg MSwwYSFgRHZpRXB6QJUfWBDuSV5HDhYxHVKrMrG2RyeaQGTbWCHsfw7ZFNIiGPZyQtI0TNZjURVtCDUn IJklHNVzVMEjRGA3UTDqYCJkRC3BMaFgJBIuSLCmAg MgUXHbZZXpie5RWJScRDAqHpLpERDaZTBmMPXlCEvlEBNnGTKdHEX6MKKuHXSwNF9YNhHsTVQlNXGsWJ rgWHHhDQXubm0VIPJsEANkVUFxJcXcMFUuRWWuXIdrBDLzBBH9JGA7DHTxGJFnMW3PBbIhHVBzFCJ0JZ LiASMzBMSxjg7GDZArOSGoHKX7DADpKCWnOGZoWWfq MEYcFHL7WJXeUXKiWMTyMZ0SCnGjGXVlDVXtZMMkOXOdQHHknt8NGBJhVRYoGLM7BkPjXXHnYEHcJEwg BZWcUJK6CjU3PBBwDHViUC8ABuQxGIEbDYa0OIriVWXaULUmns2ELXNzPPSlBUF6NYRmTOPkGAScJLfs GLLvGYX3VlA8GMPmYNLfFS4BJsBqGMDeWgAdMCxuNR AeJDBcyy6XZPBdPRIoIYMuIRMpDPHkEYMqSBaxDXKaHIQlHuT0JQNbIFPeZZ5SOlMaLSWuEpP9SEntNM AkAQMknf1QTGPmAMQgOFe3OhWlBXBwAUHvXTctDIFdNECxPBP1QGNsEAXtHL9IGuLoCRPbZuPoDUabCG GfTTHbtv8GICUaSBXmEop7WqIeQKFyGNFjJVamABFl RUNdHLM3DAIaKMBmYI4MUrHeXUYjLfTeGbZiOYLjQUYyjx4FiYJltPnblu6TGTpSWf5QmEetNFZvXCfr Hf4uzWKzXICjPBGIWm0TjgQkPNUiJRGZGTtbBEOaVTBzFDD0YQH8Wig1ZECfUSCaTVirLSQkOyYuLAs0 QPq4WdL6QbZ9MYi2XiezHddbMgRiXaJrL2QdAKChCl U1LwQ4YHe+WF9nXTm+Lx7Pz0YywaX2exFkZTrkBUN9TK1ZLXLRY2DJZw== ID Date Data Source [id number] 06/13/2021 10:40:27 AM EDT [facility] Name Value Range Interpretation Code Description Data Arabella rce(s) Supporting Document(s) Perioperative Nursing Note Health system HETKNq1nDoTFJhIj89/WMJawUCYcm2ExBClrAKb7LWolLQDfP4PnBHJ8lM9pEPT2VAoUZrYuUhFjREB2 lbm [file] OURfWvI3CYqzDBNkSAU8K6DtOcDsRn0kNOERKs7+CJrloVZusAnyJRQUSxLgNJEhRPcxURTIEr6W ID Date Data Source [id number] 06/13/2021 10:36:35 AM EDT [facility] Name Value Range Interpretation Code Description Data Arabella rce(s) Supporting Document(s) Anesthesia Preprocedure Evaluation [facility] JMNKIc3cNhUKNwIj57/EUDouWXWqm8OvGTskAQk7PArcLJSaI3NwXLY2vT3vGXS1DZlXZxMdNhXlKYM3 lbm [file] AyUDG0LyEsJLIgRZNlBKHvVoyoUiRcCP1PJl5NLsP3STW2eTZqRh7SFuEhOHFPYuSkWG8IPCz= ID Date Data Source [id number] 06/13/2021 05:08:12 AM EDT [facility] Name Value Range Interpretation Code Description Data Arabella rce(s) Supporting Document(s) Nursing Note [facility] YOXGCf7bCfMAClIa31/NJIwmJAKar2IfKBjvFNa2YFnzLAJkZ3YeQDQ4cR3qQEU9QHkQAjHeYgZeAKC4 lbm [file] HHd4Xc8VEQIKZ7FJUq== ID Date Data Source [id number] 06/12/2021 06:38:56 PM EDT [facility] Name Value Range Interpretation Code Description Data Arabella rce(s) Supporting Document(s) Nursing Note [facility] NZWERo1vNoOYWtHu96/BGOhbRWMrh4WsBCpsFAj3OVzhUQCsW3FtPKU9uP2cQPS2MHqWZlDqSkRoTRN9 lbm [file] FcGKFbHbAqHUp1CMwcJCw6LAW9BM5lRKOACw0+FSaugCLveOlxLHPEAsBoXHEvRPbgHTISMb9L ID Date Data Source [id number] 06/12/2021 07:45:00 PM EDT [facility] Name Value Range Interpretation Code Description Data Arablela rce(s) Supporting Document(s) WBC 4.21 x1000/ul 4.80-10.00 Below low normal [facility] RBC 5.04 x1Mil/ul 4.20-5.40 Normal (applies to non-numeric re sults) [facility] Hemoglobin 13.8 g/dl 12.0-16.0 Normal (applies to non-numeric resul ts) [facility] Hematocrit 44.9 % 37.0-47.0 Normal (applies to non-numeric resul ts) [facility] MCV 89.1 fL 81.0-99.0 Normal (applies to non-numeric resul ts) [facility] MCH 27.4 pg 27.0-31.0 Normal (applies to non-numeric resul ts) [facility] MCHC 30.7 g/dl 32.2-37.0 Below low normal [facility] RDW 16.8 % 11.5-14.5 Above high normal [facility] Platelet Count 167 x1000/ul 130-400 Normal (applies to non-numeric results) [facility] MPV 10.0 fL 9.4-12.4 Normal (applies to non-numeric resul ts) [facility] Nucleated RBCs 0.00 % 0.00-0.20 Normal (applies to non-numeric r esults) [facility] Abs. Nucleated RBCs 0.00 x1000/ul 0.00-0.02 Normal (appl ies to non-numeric results) [facility] The above 12 analytes were performed by [facility] [id number], ,[place] [address] ID Date Data Source [id number] 06/12/2021 07:29:00 PM EDT [facility] Name Value Range Interpretation Code Description Data Arabella rce(s) Supporting Document(s) AST 30 IU/L 15-37 Normal (applies to non-numeric resul ts) [facility] Sulfasalazine and sulfapyridine have the potential to falsely depressAspartate Aminotransferase results. Baseline values before medication administration are recommended. ALT 31 IU/L 13-56 Normal (applies to non-numeric resul ts) [facility] Sulfasalazine and sulfapyridine have the potential to falsely depressAlanine Aminotransferase results. Baseline values before medication administration are recommended. Alkaline Phosphatase 53 mIU/ml 50-136 Normal (applies to non-num madiha results) [facility] Total Bilirubin 1.20 mg/dl 0.20-1.00 Above high normal [facility] Blood Urea Nitrogen 9 mg/dl 7-18 Normal (applies to non-nume ny results) [facility] Creatinine 0.60 mg/dl 0.51-0.95 Normal (applies to non-numeric resul ts) [facility] N-Acetylcysteine (NAC) and Metamizole em ve the potential to falselydepress Creatinine results. Baseline values before medication adminstration are recommended. Patients undergoing treatment with phenindione will have falselydepressed results. Patients on phenindione therapy should be tested with an alternativeCREA method.Toxic levels of acetaminophen may lead to falsely depressed results forpatient samples. Glomerular Filtration Rate >90.00 mL/min/1.73m2 [facility] GFR Reference Ranges:Normal Function or Mild [...] of Health and the National Kidney[employer]. The [place] method used in calculating this result is traceable to IDAL standards. Glucose 103 mg/dl 70-110 Normal (applies to non-numeric resul ts) [facility] Sulfasalazine has the potential to false ly depress Glucose results. Sulfapyridine has the potential to falsely elevate Glucose results. Baseline values before medication administration are recommended. Calcium 7.9 mg/dl 8.5-10.1 Below low normal [facility] Total Protein 6.3 g/dl 6.4-8.2 Below low normal [facility] Albumin 3.0 g/dl 3.4-5.0 Below low normal [facility] Sodium 138 mEq/L 136-145 Normal (applies to non-numeric resul ts) [facility] Potassium 4.5 mEq/L 3.5-5.1 Normal (applies to non-numeric resul ts) [facility] Chloride 109.0 mEq/L 98.0-107.0 Above high normal [facility] Anion Gap 9.4 [facility] Carbon Dioxide 24.1 mMol/L 21.0-32.0 Normal (applies to non-numeric results) [facility] The above 16 analytes were performed by [facility] [id number], ,[place] [address] ID Date Data Source [id number] 06/12/2021 05:03:08 PM EDT [facility] Name Value Range Interpretation Code Description Data Arabella rce(s) Supporting Document(s) H&P [facility] UGYQXb2uZoNMBuAn80/FSCriKRWof4TuGQdiQGl4KQohHZDtP1DrMPH0jN9zYMC5CQcMPyVnNuGaGHJ1 lbm [file] AgICAgICAgICAgICAgICAgICAgICAgICAgICAgICAgICAgICAgICAgICAgICAgICAgICAgICAgICAgIC AgICAgICAgICAgICANCiAgICAgICAgICAgICAgICAgICAgICAgICAgICAgICAgICAgICAgICAgICAgIC AgICAgICAgICAgICAgICAgICAgICAgICAgICAgICAg ICAgICAgICAgICAgICAgICAgICAgICANCiAgICAgICAgICAgICAgICAgICAgICAgICAgICAgICAgICAg ICAgICAgICAgICAgICAgICAgICAgICAgICAgICAgICAgICAgICAgICAgICAgICAgICAgICAgICAgICAg ICAgICANCiAgICAgICAgICAgICAgICAgICAgICAgIC AgICAgICAgICAgICAgICAgICAgICAgICAgICAgICAgICAgICAgICAgICAgICAgICAgICAgICAgICAgIC AgICAgICAgICAgICAgICANCiAgICAgICAgICAgICAgICAgICAgICAgICAgICAgICAgICAgICAgICAgIC AgICAgICAgICAgICAgICAgICAgICAgICAgICAgICAg ICAgICAgICAgICAgICAgICAgICAgICAgICANCiAgICAgICAgICAgICAgICAgICAgICAgICAgICAgICAg ICAgICAgICAgICAgICAgICAgICAgICAgICAgICAgICAgICAgICAgICAgICAgICAgICAgICAgICAgICAg ICAgICAgICANCiAgICAgICAgICAgICAgICAgICAgIC AgICAgICAgICAgICAgICAgICAgICAgICAgICAgICAgICAgICAgICAgICAgICAgICAgICAgICAgICAgIC AgICAgICAgICAgICAgICAgICANCiAgICAgICAgICAgICAgICAgICAgICAgICAgICAgICAgICAgICAgIC AgICAgICAgICAgICAgICAgICAgICAgICAgICAgICAg ICAgICAgICAgICAgICAgICAgICAgICAgICAgICANCiAgICAgICAgICAgICAgICAgICAgICAgICAgICAg ICAgICAgICAgICAgICAgICAgICAgICAgICAgICAgICAgICAgICAgICAgICAgICAgICAgICAgICAgICAg ICAgICAgICAgICANCiAgICAgICAgICAgICAgICAgIC AgICAgICAgICAgICAgICAgICAgICAgICAgICAgICAgICAgICAgICAgICAgICAgICAgICAgICAgICAgIC AgICAgICAgICAgICAgICAgICAgICANCjw/aKTzT9kxeDVlwtE4A9vcYr4ILy6APG0qd1WiPBEdGBcbrt HiAmvOJoZhETUdMifUSxv3RYmhMU7GdTNvG7MzB6Ci NMtpKV7EKIBgRUZwcTWkQXIbSOZqUgL9DKUsIUydSK7GfHErAGcsQCKuGGAyAvRkQBEyARSzJEBqPDUw WEOMEH0AOdEtZ9RbvL33CBDBVr6+LRpebiRjDcnDEbA1TPVhc2HrIDz4KV8REAFgIywpl3ZmIMEeFLOU LFwzAQ6ZXPI4JMRmRZEmGp8PKNTzC654zgSfGT1CUx 0AXvJeSB9skz8NBKGrEQIaJnpCWiv4VZnnAB4UtRDuOXiMYhTdDsosT4zorRzxqIWTAVkeFPExglwmAM WtILWsFRBoYB8wVPWeHXSnHtD9POFLPV1XJHSzKWGkpDTjYRBtFUQODR2VQEumHVO5FnwluuOszMIzGI xsYB2BMGJzkoZiIehpQCVQZFc+Bb0JLY2wd6IpNSa5 GGChZR0caj9BTLeUNcAbA7D2cXTeI7C7PFbeLz6QRHNmCTGxIaaoNMCCPVsxUX6ZIS0mlbV3PO2HdNXz RDCnWGPczKNjMIj8D84iaHJtWVrhEM4BYGE+Mau+Gr1IGXJqOCPfBVJiYlJbQSTRDeDeD2MaH7KTa1Fj Q9AwAG03vDmcusTuPChlZU3GFD2yNJSuXABALX2GjY WfwM8ieiIeCZEnIOTHObDhL07baFRyUBYuJIM1DELeWx0UPJDhO0KqvmRozHljciOjUVNvXUCIRA6ECC qcqeCyiGDauQnwWH44sCoyCY1HHr3XYcKuJH9hlw0ZbTLjCl7BSXV1Eu7FXBIoGWUwJYCaJXI1JRFwUz FyJAvmXWSmPQJoYKK3XUNfHSDeUV5JEoWzSTDjUTH6 POOhDVTuOLBtcy1UYRCiIPI3BcDnBmNjCKNxNXEcCEypYOOwIXAhHUC9VAOjXDJaJQ2OIzPkBWYfKSS0 DnabPIQbTSUmab7HJGFnYRSiQyMpXmAnTQKiJHBxSPbsWAUoCDV0RrEzPDBtOVXrLZ5ERwSbXQGdISX6 DMLjCGJeYQKwvw9HEXMhGSXpNDN5HjJfWDZeHBSsHZ fuKIYiPBN0Rxt0HBRaXTHlBB3LXkQrYQNuPNKbIKYfUTSxYPLqgb7RZMMzKCXtGZSnJALvLNQhDOJzUA fiWAVsGZGmFqB3IYQcIJUxDK7EGpCkXPOvFKL4SfJpSHXzEPRhwa5UOUKnCHXbQXu4QWGhDGCtIAGaPU kdIFFuTZIgHgA7CPZzOWIcFF9ROcVnNIBmDEE2QQGp LLAkNPXogx4YETCbVNZvDzE1FTHjFUPrFUPoMXspVLEpKWL6UCY9NTSlYBDyAB6CUrMuRJKhZjS2MrEl WULcFHQtxm7CKGIaDXVvPHc3SlFrAVXmACZkGGzoABAoIIH3BlVlPPWdUQLhWI7GEzTvTMRwTdErPJel HWLcTZRjak7JPNJxHLUoYcIjFjKjJYBaKEYyTDdmSX WeJXK0IOzpXITwQPTkQX4HPmYhLVZrFnd2SsNeVHQgJWMwex7SJWAeSCIaPGBgBbBkFLDkKHUmEKgjYP VfCUW9Buc4OGNoTHQaPL4AUqJnGOBnFgv5RlDrCWEdVHRbyx5ESFLjCNU1YtB9ZQCmAUPlRGNuLZoeJH DbTNWpIhPiQSEpNSKjIX0QQbQgHEOlIDG6HmGyGSPz OAXmjd9GLYXqTWM9UjN5VuLzIBGaCCSyNVcvSAYlKKEbZpI5VJNdRGPnSO3SUzIgUOBsQGMqSAEdNTNq XEVmad3ENSHuYBJ4YRI6WLKyAGOsBVJrVNgiMOZuUQR4JON9NTBjQCNsZM3JIfUrPNTqWWE8UORsXTDh PBOjbe1GTGWjRWF5GuX8OVLnXPYeYAPmBCvkKETbFX R2RRAwXUZdRLHuDQ1EZgNiAEUmWXK7YpLzLNDaXYQpsi6JxRCwbHxvsa8MRIoHEt5BsIqhGJPpDImbJq 7tlFK6IBClGXZBHr4JobFpNDUnYQOKTCduQWBlWMF8BDNgByJmJAJbJJN0KhX6MVG9KMRbHKHdUEIpX1 V4MkR7JaAjCnNgQCFzDEI4GMXeRxsuMjZ1LWI3VFFk MTBjYjQ+PE7mTLr+Uk9Il7SbyoW9wvQaNNh2SfvtAA9QPMQTV5NOXw== ID Date Data Source [id number] 06/12/2021 04:02:17 PM EDT [facility] Name Value Range Interpretation Code Description Data Arabella rce(s) Supporting Document(s) Progress Notes [facility] RXENRg3wJcVPGyFk92/RLLjoVEJgx8LdPGcbZFt5QYxfDOTtW2WdWRZ4jD5cORL1DAuMIzDtVuLzRQX2 lbm [file] [place]/Lf/wI14+tx2077kqkuPMePpIbrBG8guUkUoiafbzcKVEuHF7hf1KosVEaFVP6LOU9ny4FuZIGkDB [file] ZFS6JDEg== ID Date Data Source [id number] 06/12/2021 01:37:55 PM EDT [facility] Name Value Range Interpretation Code Description Data Arabella rce(s) Supporting Document(s) Care Plan [facility] HHBFHb2bOzRGMeId76/STHlsSWOea7FmXBcdCWb9ZMkaNJBkN6EqRUV4sY4jYAE2SUqEYvUmWnOhFZF3 lbm [file] ICAgICAgICAgICAgICAgICAgICAgICAgICAgICAgIC AgICAgICAgICAgICAgICAgICAgICAgICAgICAgICAgICAgICAgICANCiAgICAgICAgICAgICAgICAgIC AgICAgICAgICAgICAgICAgICAgICAgICAgICAgICAgICAgICAgICAgICAgICAgICAgICAgICAgICAgIC AgICAgICAgICAgICAgICAgICAgICANCiAgICAgICAg ICAgICAgICAgICAgICAgICAgICAgICAgICAgICAgICAgICAgICAgICAgICAgICAgICAgICAgICAgICAg ICAgICAgICAgICAgICAgICAgICAgICAgICAgICAgICANCiAgICAgICAgICAgICAgICAgICAgICAgICAg ICAgICAgICAgICAgICAgICAgICAgICAgICAgICAgIC AgICAgICAgICAgICAgICAgICAgICAgICAgICAgICAgICAgICAgICAgICANCiAgICAgICAgICAgICAgIC AgICAgICAgICAgICAgICAgICAgICAgICAgICAgICAgICAgICAgICAgICAgICAgICAgICAgICAgICAgIC AgICAgICAgICAgICAgICAgICAgICAgICANCiAgICAg ICAgICAgICAgICAgICAgICAgICAgICAgICAgICAgICAgICAgICAgICAgICAgICAgICAgICAgICAgICAg ICAgICAgICAgICAgICAgICAgICAgICAgICAgICAgICAgICANCiAgICAgICAgICAgICAgICAgICAgICAg ICAgICAgICAgICAgICAgICAgICAgICAgICAgICAgIC AgICAgICAgICAgICAgICAgICAgICAgICAgICAgICAgICAgICAgICAgICAgICANCiAgICAgICAgICAgIC AgICAgICAgICAgICAgICAgICAgICAgICAgICAgICAgICAgICAgICAgICAgICAgICAgICAgICAgICAgIC AgICAgICAgICAgICAgICAgICAgICAgICAgICANCiAg ICAgICAgICAgICAgICAgICAgICAgICAgICAgICAgICAgICAgICAgICAgICAgICAgICAgICAgICAgICAg ICAgICAgICAgICAgICAgICAgICAgICAgICAgICAgICAgICAgICANCiAgICAgICAgICAgICAgICAgICAg ICAgICAgICAgICAgICAgICAgICAgICAgICAgICAgIC AgICAgICAgICAgICAgICAgICAgICAgICAgICAgICAgICAgICAgICAgICAgICAgICANCjw/yZDmC5sqbB PatpS6I0uoYr4WKa1XDO7dl0ZpJTWcTVxyqfNcHznVQcXnOKNvVxtIYvu1RLqxOM6AlJFpA9ThY4DoMY kiAR3JJFPxFQSxsKDkAMDsWHYmMzY0JDNtWPmvPJ0I yNCfGJejWLUlWYAcYaMeRQWsDO3EQKAhV020suUfKm6DWz8SGzRdRS0uuu3RVkxgZLRmWkrHUim7VRde TO8YqFEyqMGnWXRiSBNKVjHkJ3mlp6OlUiodOVZSAWniQE4Jc5HrgEPkHVb+Kv6TVM0qu6FkZLyoMRQn VS0gpp4LDIhYVxApD2BijBreMLOqgvPjSNhqosPgvK RPYGRwZYTxc96lnpmsNp5oMNKwSMTzZR7kDHKeCKRlEvF0SZYNXC2HUNEuLIFjwAIjMHUiBWAVSC4XOI nqPJS2NziladBbsRCsKAixMN0QJCXdkhItTcxnMRMIOPn+Gp2CWH9ah8VcLMsmYVYqNK9wph9PXNpZSb SbS3T6wMGvK2V6VKlkCr4HIZBoLFMiDdPvXKKQLOro EH0SVI4yegP8GA0FuPYiWUEyOITxqNTnZGw3X80okJVqLKdzWF9ABSZ+Mau+Nl2TTOFuEUDaLWAaYsQy XSSLDiEaG6BaK3IKj5TsL8AiWM57tLicczBtIWciFS2RXS8xKHOnQGPMBZ3JkTYbcG9lesWbKfZpMXDF DwUpQ04mxAPoCHYeBUG8WINpHj0FSFFeH3FpthKzwK knhjItJGPxVQEZKQ0NFGfoskJjhTDekXxmOL36zYmtTF2WPp9KBiKdPP4nic6MtHVaOa9KQLTuTQ5IHJ XmGAMrWFNaHCK6VPPqTuWxAJlkCEKyVYHuXMM2GFSbOHWyUK6OPrQcFVQwZxW7JdMqKBSzSHYkit0RLF HyBVGrKqJ5ZPGkYBHqVLDmVXkhFTPdFEKxYQX1OIXu LURmJU4NStGiHTPwNQJfBGYnFWPuOPCyig1YZOPmXPLqShA1DPUzPYUuACMqDIxzPIPvXTKvMZH4SPFq TWOpNI3ZAzHrVBCfTZZzXjYwFTXzWINgpl2IVEMiAVEoVPF3XWUfHHOmVTXwTHzvZFHtUUO4KkmyMGEi QHXnDB2FBjIyGABmPSQ2DjZjWPMwTXNqkt6BZOFhQW SpOMBvUdGsRYEeRVDcZQwdVUEpKTQ2NuUcPKNeUOUpMA4TBjHmHPTqPOZ2YEHsMAPgUEFphs4XJBYpQJ YpYOC8JQAkVXWkMZAiEEzwDMFeZYQ6NNeaCAIhKSIdPF0MRjKdADUeGAc6ZPDbTBYmWIVlui5WAEQlGA EuUWEeVFQfSYFwBNSgOIpqPYIvJPY5VOl6OOYdXKFa EK5VCkPiSJMhPoWdXWdsBZMaSRHupv7RBVKhJGKyGQOeUoBpPQRiFRIgXVejCBOtRUMzBKAjRSHbTKRa XD4PTiNkMQAlJwH9BRNaWTJqSUDewc5NTOKmFWWyFWOcPMYvTGXoCNNhCUhuAGDuLIBaJOZqOHHtGBKn DY3SRnFuBUJfYtAcEcBrTOGnQUYoww1RSTMtZFBdPo I4HJEaGJTrWJQfZIazZQSlQYDhEnSqFPHiSFVkUT2FQpGjOOYaPvK5ZOUiAFImPZJiye7VaVPhyBrbun 3PBCuYCz8EnXytSDFqWPwjWj7ovWTwLBBzIGSEVc4WrnHkKBGmXECTHWnjPMYeRRH0IcThQvp5XWPzQI B7WlFeJHTeVGIyI2NfGFC1JtryOwQ3XlQwDAKjRsT2 POSzJKejEgIsDdCuOfWhSbK2EmW2PDS+BE6fQFz+Ty0Mm2FmcrN4zxYkQVedZHRlWV6XXIOUU2FMLr== ID Date Data Source [id number] 06/12/2021 07:13:03 AM EDT [facility] Name Value Range Interpretation Code Description Data Arabella rce(s) Supporting Document(s) Nursing Note [facility] VWFDQb1lYbOKMpOt32/NMRqaXWHib7CeZEsxXKp0RCbhODFsH2KaTOZ1cR1hTMU6ENgUZtQqWaYkALM3 lbm [file] A9SAUbQFmmEfOlYGJuBFIcLzXhVO2CEz0XNyT2VMB4dPPsRk8QGkPjZRsHWjLzWL0XBGl= ID Date Data Source [id number] 06/14/2021 08:35:00 AM EDT [facility] Name Value Range Interpretation Code Description Data Arabella rce(s) Supporting Document(s) Anabasine 23 ng/mL <2.0 Above high normal [facility] ADDITIONAL INFORMATIO N This test was developed and its performance characteristicsdetermined by [facility] in a manner consistent with CLIArequirements. This test has not been cleared or approved bythe U.S. Food and Drug Administration.Test Performed by:[address] [id number] Director: Rashawn Vides M.D. Ph.D.; CLIA# [id number] Cotinine >1200 ng/mL <5.0 Above high normal [facility] Nicotine 286 ng/mL <5.0 Above high normal [facility] Nornicotine >120 ng/mL <2.0 Above high normal [facility] The above 4 analytes were performed by [employer] ([id number]) ID Date Data Source [id number] 06/11/2021 09:02:00 PM EDT [facility] Name Value Range Interpretation Code Description Data Arabella rce(s) Supporting Document(s) SARS coronavirus 2 RNA [Presence] in Res piratory specimen by MELINDA with probe detection NEGATIVE [facility] This lab was ordered by [facility] a nd reported by [facility]. ID Date Data Source [id number] 06/02/2021 01:34:04 PM EDT [facility] Name Value Range Interpretation Code Description Data Arabella rce(s) Supporting Document(s) Consults [facility] RLVFNm2rGuQIPeNu58/YSPejJAVpp3TgIJljZHc8MErnGLTvG5HkCER2xT5lJTE4KTdQRmJaNqIyQPF3 lbm XqXuuMRlJxVMAcDnxIJdCiYTvpEpkvcERcQV4VaGB3RJClZ27dPBAdCRMxP5XzSTAqLkk+Om1GYGGjyS XuTD7OBuaD6J8IydcLDm9tOk4qHrewMDK3s5/iNHsHEBeqXGj39BsCbLTAToKgBlJR/Eqo2fIkt4QH27 OzoKTEPohTO+ul5rv0sNUx/vtdHaVxEARq+//Dn2lu 1NWd+xhq9U3hjB033m4ccoiHCFAAfrVA1t0TE/5EWM8eQvu/aG2NhqSttYjNlAvKpJxvRiBv6JO22gV+ bc6L33VTL8LnPoLat1GM0XSN9uSxmicE3K5cVc5hKt6Nd/qfy2RqJ2IwaVRSWVpQ27fxopIFxnqz7KOa 8pw18EdCxaOzN3ac/rRtJK6soB7JFDYq9xjTobJ4ml NAPOLEON/cWkZwFa3czDEm3sZbPFuSih3xsUBUIrZP2dwCstQXXOjq4T6IFm+i15rZ7hYuKCLT6pQ82QAWiuU [file] tbHDOWMdU3YkieILeeUICEMk5Q ID Date Data Source [id number] 05/05/2021 06:37:00 PM EDT [facility] Patient: SIENNA FOSTER Observation [facility], [facility].VisitID: [id number] [place] [address] [phone], [facility] Date/Time: 04/24/2021 22:55 Weight:68.9 kg (S). Height/Length:68 [...] March 2017 for an ulcer.Gastric Resection [2013]. (Jusytna- en y)Gastric surgery. (Pt reports she had [...] (suicidal thoughts)Bees.(Anaphylaxis)Maxalt.(Anaphylaxis) (coma). (Electronically signed by Willie Diaz, PFlynn 04/25/2021 10:24) Name Value Range Interpretation Code Description Data Arabella rce(s) Supporting Document(s) ID Date Data Source [id number] 05/04/2021 04:34:32 PM EDT [facility] Name Value Range Interpretation Code Description Data Arabella rce(s) Supporting Document(s) Discharge Summary [facility] VQLVTr4uNwXISxXu79/EATpeHWPqc3HpXHwnZJo1EEluXYAqP4VmBIH7pC2nPEJ9LYrUAsJuWcRpNFP3 [facility] [file] YCSlH4UcIZ7qGQNJWo2+MViedTCouZloDCVEVoPyBEX5KNnyGIAADa0G ID Date Data Source [id number] 05/04/2021 03:25:37 PM EDT [facility] Name Value Range Interpretation Code Description Data Arabella rce(s) Supporting Document(s) Nursing Note [facility] FHRNKq0pQrLNTsXn85/BVZujDBNjv4OyRUqcFLg1CKhtCFMfA5LiQHP5lP8gUHR0KEkIYoOtFbZvCUN9 lbm [file] T0YNCg== ID Date Data Source [id number] 05/04/2021 12:56:29 PM EDT [facility] Name Value Range Interpretation Code Description Data Arabella rce(s) Supporting Document(s) Care Plan [facility] BVEXAz4xZqCDDyZd71/THWrvTXJoy1TkGUwwZAx1ZWaiYNXfD2EnHZX4oV9hHCW8FZjWDuLlYkMkJVB2 lbm [file] DqAvCwWqjrP1PzQlnhOkZ2AyOxYU9GQs2PNlJ6SIE7jERpKx8YVcG0COPSQpWcZK7GBBv= ID Date Data Source [id number] 05/04/2021 07:13:56 AM EDT [facility] Name Value Range Interpretation Code Description Data Arabella rce(s) Supporting Document(s) Nursing Note [facility] IDWWVy9aPzYVSfLw33/POWuqEQIlr5VkJHfkPHy0BVghKSClM0SdNTH9cM1tVLM4NSyVWxKgEhXyMHX9 lbm [file] UlJpQjSW4ZXa6NBoK5HGJ9rNDoEj3ISvTiCFXIPlGxRT3KHAx= ID Date Data Source [id number] 05/04/2021 05:39:00 AM EDT [facility] Name Value Range Interpretation Code Description Data Arabella rce(s) Supporting Document(s) Blood Urea Nitrogen 15 mg/dl 7-18 Normal (applies to non-nume ny results) [facility] Creatinine 0.78 mg/dl 0.51-0.95 Normal (applies to non-numeric resul ts) [facility] N-Acetylcysteine (NAC) and Metamizole em ve the potential to falselydepress Creatinine results. Baseline values before medication adminstration are recommended. Patients undergoing treatment with phenindione will have falselydepressed results. Patients on phenindione therapy should be tested with an alternativeCREA method.Toxic levels of acetaminophen may lead to falsely depressed results forpatient samples. Glomerular Filtration Rate 83.00 mL/min/1.73m2 [facility] GFR Reference Ranges:Normal Function or Mild [...] of Health and the National KidneyFoundation. The [place] method used in calculating this result is traceable to IDAL standards. Glucose 86 mg/dl 70-110 Normal (applies to non-numeric resul ts) [facility] Sulfasalazine has the potential to false ly depress Glucose results. Sulfapyridine has the potential to falsely elevate Glucose results. Baseline values before medication administration are recommended. Calcium 8.5 mg/dl 8.5-10.1 Normal (applies to non-numeric resul ts) [facility] Sodium 137 mEq/L 136-145 Normal (applies to non-numeric resul ts) [facility] Potassium 3.7 mEq/L 3.5-5.1 Normal (applies to non-numeric resul ts) [facility] Chloride 109.0 mEq/L 98.0-107.0 Above high normal [facility] Anion Gap 9.7 [facility] Carbon Dioxide 22.0 mMol/L 21.0-32.0 Normal (applies to non-numeric results) [facility] The above 10 analytes were performed by [facility] [id number]man, ,[place] [address] ID Date Data Source [id number] 05/04/2021 05:39:00 AM EDT [facility] Name Value Range Interpretation Code Description Data Arabella rce(s) Supporting Document(s) Magnesium 2.0 mg/dl 1.6-2.6 Normal (applies to non-numeric resul ts) [facility] The above 1 analytes [facility] [id number]man, ,[place] [address] ID Date Data Source [id number] 05/04/2021 05:18:00 AM EDT [facility] Name Value Range Interpretation Code Description Data Arabella rce(s) Supporting Document(s) WBC 5.61 x1000/ul 4.80-10.00 Normal (applies to non-numeric re sults) [facility] RBC 4.13 x1Mil/ul 4.20-5.40 Below low normal [facility] Hemoglobin 11.1 g/dl 12.0-16.0 Below low normal [facility] Hematocrit 34.4 % 37.0-47.0 Below low normal [facility] MCV 83.3 fL 81.0-99.0 Normal (applies to non-numeric resul ts) [facility] MCH 26.9 pg 27.0-31.0 Below low normal [facility] MCHC 32.3 g/dl 32.2-37.0 Normal (applies to non-numeric resul ts) [facility] RDW 14.6 % 11.5-14.5 Above high normal [facility] Platelet Count 235 x1000/ul 130-400 Normal (applies to non-numeric results) [facility] MPV 10.4 fL 9.4-12.4 Normal (applies to non-numeric resul ts) [facility] Neutrophils 51.3 % 40.0-74.0 Normal (applies to non-numeric resu lts) [facility] Lymphocytes 36.5 % 19.0-48.0 Normal (applies to non-numeric resu lts) [facility] Monocytes 9.3 % 3.4-9.0 Above high normal [facility] Eosinophils 2.0 % 0.0-7.0 Normal (applies to non-numeric resu lts) [facility] Basophils 0.7 % 0.0-2.0 Normal (applies to non-numeric resul ts) [facility] Immature Granulocytes 0.2 % 0.0-0.5 Normal (applies to non-nu meric results) [facility] Nucleated RBCs 0.00 % 0.00-0.20 Normal (applies to non-numeric r esults) [facility] Abs. Neutrophils 2.88 x1000/ul 1.92-8.31 Normal (applies to non-numeric results) [facility] Abs. Lymphocyte 2.05 x1000/ul 1.20-3.70 Normal (applies to non-n umeric results) [facility] Abs. Monocytes 0.52 x1000/ul 0.14-0.97 Normal (applies to non-nu meric results) [facility] Abs. Eosinophils 0.11 x1000/ul 0.00-0.76 Normal (applie s to non-numeric results) [facility] Abs. Basophils 0.04 x1000/ul 0.00-0.22 Normal (applies to non-n umeric results) [facility] Abs. Immature Gran. 0.01 x1000/ul 0.00-0.02 Normal (appl ies to non-numeric results) [facility] Abs. Nucleated RBCs 0.00 x1000/ul 0.00-0.02 Normal (appl ies to non-numeric results) [facility] The above 24 analytes were performed by [facility] [id number], ,[place] [address] ID Date Data Source [id number] 05/04/2021 01:18:34 AM EDT [facility] Name Value Range Interpretation Code Description Data Arabella rce(s) Supporting Document(s) Care Plan [facility] EEQIZk0hItYZSuDb76/UDAagSQMgg6GyNNtgOVp1APzgJEKwE9DzSLA3cL3yPFG2TFnZPkJcRhItYHA9 lbm [file] KRuOI7726MKawoQnkGz+duOB1nuGOa8omvUlE9YsILXq5iT43Pq6v+6j94YtYD/COLD MEAT CHEF/wMvF5TkP10TNbO [file] ICAgICAgICAgICAgICAgICAgICAgICAgICAgICAgICAgICAgICAgICAgICAgICAgICAgICAgICAgICAg ICAgDQogICAgICAgICAgICAgICAgICAgICAgICAgIC AgICAgICAgICAgICAgICAgICAgICAgICAgICAgICAgICAgICAgICAgICAgICAgICAgICAgICAgICAgIC AgICAgICAgICAgICAgDQogICAgICAgICAgICAgICAgICAgICAgICAgICAgICAgICAgICAgICAgICAgIC AgICAgICAgICAgICAgICAgICAgICAgICAgICAgICAg ICAgICAgICAgICAgICAgICAgICAgICAgDQogICAgICAgICAgICAgICAgICAgICAgICAgICAgICAgICAg ICAgICAgICAgICAgICAgICAgICAgICAgICAgICAgICAgICAgICAgICAgICAgICAgICAgICAgICAgICAg ICAgICAgDQogICAgICAgICAgICAgICAgICAgICAgIC AgICAgICAgICAgICAgICAgICAgICAgICAgICAgICAgICAgICAgICAgICAgICAgICAgICAgICAgICAgIC AgICAgICAgICAgICAgICAgDQogICAgICAgICAgICAgICAgICAgICAgICAgICAgICAgICAgICAgICAgIC AgICAgICAgICAgICAgICAgICAgICAgICAgICAgICAg ICAgICAgICAgICAgICAgICAgICAgICAgICAgDQogICAgICAgICAgICAgICAgICAgICAgICAgICAgICAg ICAgICAgICAgICAgICAgICAgICAgICAgICAgICAgICAgICAgICAgICAgICAgICAgICAgICAgICAgICAg ICAgICAgICAgDQogICAgICAgICAgICAgICAgICAgIC AgICAgICAgICAgICAgICAgICAgICAgICAgICAgICAgICAgICAgICAgICAgICAgICAgICAgICAgICAgIC AgICAgICAgICAgICAgICAgICAgDQogICAgICAgICAgICAgICAgICAgICAgICAgICAgICAgICAgICAgIC AgICAgICAgICAgICAgICAgICAgICAgICAgICAgICAg ICAgICAgICAgICAgICAgICAgICAgICAgICAgICAgDQogICAgICAgICAgICAgICAgICAgICAgICAgICAg ICAgICAgICAgICAgICAgICAgICAgICAgICAgICAgICAgICAgICAgICAgICAgICAgICAgICAgICAgICAg ISUzCLUeHMFqXOHaLEj5T5siWPWcXEYvXH5cNHn1Ir 8+XEoRYsHoXYR6aeRtmE9JEX9av1UtOQerCTPfs0XtTTs6MU3ESZGzUGfmJP0IAFavvj0FSZLmHEJsjX ZXp6leXyPhLEC6AYZuWuqkAI5KXAQiV6kiexXhLOKaNPUETH0DLeWfS3JehC46YNVTOe9+DQplbmRvYm gCUnWmLDNyh2HyQBh6YX4QYEXvPpbcz7WlRqBeRVHI AZrjWR6ZAOS8BUDyWQFxKl1RZNPtF197gpAvJS1TGt9SIpQcWY6miz2FBdBzZEGqCfaOEzr0CJvuUO6T tFBqHExSRYExOLJsXQ3aFhvgQbW5NYaciWQyRvrps6InH9tlHGOILQI3QLakIyQmYxTvAXGcLYppNVKK JHlJZgTxL4Kgc6QrFsK6QWXfDnVrFUtqEXNnGiR2GH 28oTpjUI5QLQCeJDIhXN42MORxCUOiGj2KNv2UPfOfEH0gep0HFfZdVFWaGnqVHcm2LHwmTI6NvOGqM3 PmxCBmp1pVZuCkG9MZFQG0DFFmBp8XXAIdOrWiIHYlSHvqXT7mMKHkOENXlVlgbjD2YB4EFM8hwvNrXT 2ZZwImEf5mRp0ABdFxH9CkZ9RhXEGaVHELRKvyLC0H LUhrRZ7tDF2Ek8KTuNDzuU7any4GZPKqWQTeGsbpbz1NWadkO9T5lOsqJZAzMxHoVBUWXJceEL2PCTYh XHO5YLViJZAyGNPGJnEtC65pGQ3HX4Bfk89pObL3NGOlNvTvCUndGN94qTcqpvIbfJOyyUnmXD5LCz5+ DQplbmRvYmoNCnhyZWYNCjAgMzMNCjAwMDAwMDAwMD CoJpT1HoGoCy7ANWDjOTHqKIKfXsLxXUSqQACbPWpjKKUqNMXkMSJ0BVEwCRNlNB4PZuTsNCDzIEFuGW HiWXGtGHOybs6PPCBsQDPhYOW1EgLaNSQmBZUgRLcnDSEeUAKjWFA7EUQpBBIlMW1SYoUbVUFdCZEiAB OuOZImGWOviz1BMAZtGPGvZAU8MOWwTCWiSAHmANfa PFYtRZO0EztfHTDrFJTiYO3WYtBuCPQzIZF4GUegZHFgHJStgp6ALJMrMAUdVIOjBeAnOJAeAGPaAOtw JGGlZNA8IfFcWQQkMBKxHW4WLdVoAPZxSOV8COGaALHoGVOefy7OVRAyRMCvOOY3JGImCDUbUFTuDWbv JWBjSOC7WHRsOOHlMXSqHB1MKvYbMWGrSNv3UbpyIU CgAKQjkn5DPGBnVPCoPEorDORyRRQbRGQoAXtbSDHzNZD8JXI4XAKuOEAkNX3QYjGrYKWrGKj7KMhhNP AaTHVucy5BGMFbVFJpBDK9SFTiCEYbKKSdCWmrWYRiNDFwPxofTWQkQQOeUQ1IDaTkDSBwEkWnMoWdHZ KyNSBgvk7FCBRrBCMrOCQlRNHzXXDkYZMgBIkyZJIi VTPvJuqcHNBdNWLqCD1PJbJsKDWvAbieYNVxQCFrSPLpqb6YHOZrFRWoTFVyQXHnLKTqWQXmRYdsHHLy VRU6OSR5FPDpUDFmQH2JToHdWFOqCNHrJDmkNCNwPNSchx0SWMUbUZN1EVFwJSZeKXEqSMPfEOksLYWu MPGtETAtVLEuWEBnCB4CDiGiUBNmBUIwZKUbINGiEU Iosx3QTNWaKMW3UiI6VpSfLFZiWVWnKOqvQPGhYSHcZfT8CTXjBTRhDY2NTnKuIXieFTTPDia2RAlaN1 d4DUFvMx4FJ3Eeh8GuIhUmVIQHFBoyIK2lpcLjNLJiYq9SB9nOJwe6EuTuVXG2ZFWhAKLeSOGwW1TaHV QwEOKcLeNeLcpnHU7tSVp6FaI2Msm4XYP9KRAmOxMr VOMnYDN1MMUjVdOuNFR1KdUeJO5BKv8CHfQ1XEW2tRXhZt4VFTO6TBBTYeObVQ2UJQd= ID Date Data Source [id number] 05/03/2021 04:14:39 PM EDT [facility] Name Value Range Interpretation Code Description Data Arabella rce(s) Supporting Document(s) Progress Notes [facility] RJAENb2uWpRLTvTw91/QBRkpGJRrz5SjIBdmXDk0DZtfVLXsB7EqQVV9pZ5lPTY7LZbPUfYePnBdPNA9 lbm [file] ICAgICAgICAgICAgICAgICAgICAgICAgICAgICAgIC AgICAgICAgICAgICAgICAgICAgICAgICAgICAgICAgICAgICAgICAgICAgICAgICAgICAgICAgICAgIA 0KICAgICAgICAgICAgICAgICAgICAgICAgICAgICAgICAgICAgICAgICAgICAgICAgICAgICAgICAgIC AgICAgICAgICAgICAgICAgICAgICAgICAgICAgICAg HEUjJJSlUHWaWJ8MMNPfNLZmOHMkFBQrBQBdXBWcYGMgUJDyARHkDXErYVRyCTHoXCGeGSSxJTPkUHLs WXRwHUSeTYKrZBWuUQShEUXrVGLgHIWrTPBxAWOzMESuAXAnKIWkBEUqOFQmVHPfZOFhVB5GVPMhGHJx ICAgICAgICAgICAgICAgICAgICAgICAgICAgICAgIC AgICAgICAgICAgICAgICAgICAgICAgICAgICAgICAgICAgICAgICAgICAgICAgICAgICAgICAgICAgIC DlPI1PVRLrCSYsQONfRNEjLWOjPMLgUSAvRYAhIRYeLLSjPKQwJXKcFIVpUDYfFNExULSgDPJgYBLpOX AgICAgICAgICAgICAgICAgICAgICAgICAgICAgICAg WOJeZJNmOZGzAEXwBI6VGUIfHUBuBQSoPDOcIMBwROHdMTKtHAYkRVEiWDQySRGtYBRjRZIuEDJwSIZs IKMaGKDbARGhRIRbMWUbHWMzHPLkNNKfXIXpVRKwWUMgODOnRBHySSOiIUBmRSSeKILtSHRrTX0SQAVm ICAgICAgICAgICAgICAgICAgICAgICAgICAgICAgIC AgICAgICAgICAgICAgICAgICAgICAgICAgICAgICAgICAgICAgICAgICAgICAgICAgICAgICAgICAgIC GkKWDcHL4EHLEmDQZhCSPuRHNmYXBlFVUkSHUmMKSdMOTxMXFxGBPzJONkRYKxIOFiGMBuMEFyRIMbZJ AgICAgICAgICAgICAgICAgICAgICAgICAgICAgICAg YZOtPGBvTVRtSVGjURTfOO8UXVWnUKKlRAZjMPLxKGIeNEEnKDHhFAYxBBOvVRRxBIPnFTGbGUGqMKUm UASyPKQqLJPkFVCeEVAvWORyGVKxUTGpMDRiJURqRVDrAKTaPINrTGZlRNZuGPHsGEQkTCNbORGnYV2P YI04cIQrk6F3OMEbLD7jhcr/Nr8KQHvcoaGbkUOdPM 9RVaSnST3tbe6MZkElXK8toq1LTOxPJrCfW3O6oTPrYPVcYJRFHpQvQ14kYHnzBs00ITyvVIUlAtAdUN l6Yc2FNoTqK7xiOMJySgU7JACdCbI1ARVpUhG8YOOmJgYxEICrJZOtYB8VGCVbF271xgRqGX2GOp7MUt YpOQ7asr2ILIInNPQoFyzQKvx4JAtwZJ8ZfLLrjMG9 PwBjNZNLSkFtR7ska7LtCAGxYOIMZPteZO8Pv3KgoJGeUZl+Kp2QLX9ki4SeCZy1CzYlGT0qhy1UTHvG BlRuH3GilIybEEKfk8hrWONzVK3xiWLuDBS1MK9owgI3JMRvFNmtBR4KQAO9NCttCcDlHlKcGBOyNvj4 TRYNJUzLPpKgF5Pop8LzBwE1VVIxBvLzVUwrREKhXh J1TT40rAspRS1VBTCqYCNyNL30DHEhLIZdZm7GZs9YRcFoYY4vom8YJHErZBUbLwhJFyg7NIouLN5UtL QoM5TepXNbe6fLToZsK8HOUICqQEXuJk7QYEXuFfWaFELeHIxfSQ9wSRZeCDKWnLikseZ8YK8KRM1cxq NjQR4RIsTnQl4tTy2XTqPvJ7SqN1SpBYUsPZLADVpp GT7PRTtcSI6yIG1Ru8CYcJOmfN1iug9LIYLuZBMmDjwffl2XDwonY0P8iHkaFRMoHCTrHFDEXIqsRU9O MXQcDBR3XZG3AFErQYGOMgBrZ36tED9MX7Xyz81rRxV1LXDiOsFdGNldPR52kZaddrVrhUKmcZgnYY6H Cj4+DQplbmRvYmoNCnhyZWYNCjAgNDUNCjAwMDAwMD XnQECxSiE4UlCkSr3LJZMcMVYrDHAmQoZtSTUeMFZnPEiyRPTsQTR9QmO0VZNyBQCuZR8NUwZnMIExGV hlCjovGOZgOTLwcp2AJZTkXCKtDHK0PrBsITBrIPYkEBbqHNQuYYIgIMZ0VQWuVARkWH3QFdLrISRrOC YbGDXnTZAwHJCwjc5QEBRuAQGxJXuzBVPmPGVdROQf DIzmQJMrKGA3IEY8XMVeTOPwRG3JFyQxDXIiUVD4LCglXAWxUZPgiz4NJWMqSMToCxJuLGBuEFUlOYZn XFfoCPXaMAQ7SabpVPXeCOKfID5FIdPpYGYfQKo3NxItSLZzDXEzsz9VETVlYALsNYxjEHRcBZAuMYKm LEymOMRjMTJfPRP5NKVgFMHiFB1VYaGeGRIiQOFyLf TuGTThULKxkf1ONXGrQBSwXbH2FCQcNFVqUTRvMBdmIVFjOTIvAdqsRZAoTMUzTZ9HKnFaKLYtCPT4Dh CaQQEdTRNryc9QKNIoHNWxFMslUNUvOIJeEHMqAWtfGXKwUUD8BuCeQLQyPGHwFU6VHfHrZEFeQzJ3Zg nuLFTtQHRhwo4WJIWiARAgWBQ4ZFVtIWUzALBiVJzv IGPhOON2BZF4IOYvSFSmDD7SJgAqAYKcJnT0NncdMHUiUGMsau9WGEQdQAPnQuq5VATsJCWhKLJzTIkf PUUtRCO2XGM7LWEgHHDoXY6VRnBwHUAgRxhiGdwfGEHpKKJuvi6KAQCaCYFbTZZ9GRRxMAEfNWSuXBqj MBTnYMP9PAK4BNZdRNGkCC1DFoAbYBAdHlmiUllqQA CpYIVpsz0HHFShWLUxLMA5YWWrAZXiQHBuXHzaWHZcILM3IqL7YGTqVSGxWL1XLfLhUVOhRYBxIYlfJI StJUWkqi0PHTFdWGB6YmS7DwTlXLJgEEKdJMxeTEPwIWEkROqcTSWtWCGxZI8HKkZaNLRqTUD9LoEwDV SmRYXfcf6IRDOdEMU2Azv6ODMoDAHjGKAlXRzgHNXt FQT7IIWmIXWqZHAsAC3XWwPlVEApCOKbLzLeUZXqRVQtrc0INUMfNDD8RYKfMfUxLKEmIDKhERmbTVFk YCY6Qtf1GJHfSJAfJZ1ZRpNxRGLdZGyiIOQfJRIqFXBonh2URAFlRCG3JwJmQLLrIFHjQKRrJFtrSCZh AWC6UMUkOSYrYCXxPO5BJiHbDScySJAPKtt3STlwA4 m0CNN5SQ8HJ8Yat6IqIATqLCSATLxrWG5ofyBhMRTsMt2KJ0rBNnluPRRxAyOrYQFuMhEeUTSlUNNeY4 PaIdG7ZzPzHQFqUr5uFHCrJ8RfKIJjNKO0WLIuJgY7AHTyYQXcIhxbRsAzBAJmNuOoHY7CGy9DLbF5JH P6tXPjPl1AMQo8FBKYQnVySF5MJFa= ID Date Data Source [id number] 05/03/2021 03:38:36 PM EDT [facility] Name Value Range Interpretation Code Description Data Arabella rce(s) Supporting Document(s) Progress Notes [facility] NGUVGj2wApZOHnKy40/COFqaKYHcp0YuGKmrBQk4FUozXAHrO5KaTGW8bO7bIGH5KAfUHdMdPxSdHCM9 lbm UsUwjRMgGgMQQuEatJGzVxWLvmPynndIReNU4SuJD3MVGwS06sCCEaRNEjT3KvECO4CMj+Cy4CZORaaI YsQG9HLyjP2YkoK+S87jmO4i/9wDDS9Vn8m06fAOEn3zrCWyTuaflcWzm5XY49ndwPc7Z//oyK4sWX6v QmN5uxSPUNSUrst3pQBTSKcMlcW9LDKZKDeGza/CpT [file] OoAtVlVWhoIWHNFv4D ID Date Data Source [id number] 05/03/2021 11:35:45 AM EDT [facility] Name Value Range Interpretation Code Description Data Arabella rce(s) Supporting Document(s) Care Plan [facility] KKXWRf3iLeNDNtOh08/NWQezVQZpl4DpMSviNZp9FFubGEIvX4KnIIZ8zZ7vFXC2ANqODrErNpWsYLE1 lbm [file] DQo= ID Date Data Source [id number] 05/03/2021 10:15:39 AM EDT [facility] Name Value Range Interpretation Code Description Data Arabella rce(s) Supporting Document(s) Nursing Note [facility] GSXIRu8qBuCVPcGy98/VUPguPERxo1AeSQtvFGc9IJowSCZsB0RpKPF4xM6lYXS9KVnLQfWoIpIwIFV6 lbm [file] CuF3FrJeBW6XDz0NPjF3ZTB9dXRwTf2OIrV3GRQFDnVqGS5OQYo= ID Date Data Source [id number] 05/03/2021 09:38:41 AM EDT [facility] Name Value Range Interpretation Code Description Data Arabella rce(s) Supporting Document(s) Care Plan [facility] VRXQTo1eOzABToFi98/FWMveTPIlc7CbQIxuXVn8YImlTPWeW5OvKAV5rU1sHMI6IYaLIfJvEmQtAME2 lbm [file] 9GDQo= ID Date Data Source [id number] 05/03/2021 07:07:07 AM EDT [facility] Name Value Range Interpretation Code Description Data Arabella rce(s) Supporting Document(s) Nursing Note [facility] DHSUHa3mGmVNXhTj16/RBLkxBHHcv0UsUAjmPHo8UJhoTYYqM7NnCXJ4bR4uIJI6HDaKLiVnSlTfVXW5 lbm [file] == ID Date Data Source [id number] 05/03/2021 05:12:00 AM EDT [facility] Name Value Range Interpretation Code Description Data Arabella rce(s) Supporting Document(s) Blood Urea Nitrogen 11 mg/dl 7-18 Normal (applies to non-nume ny results) [facility] Creatinine 0.72 mg/dl 0.51-0.95 Normal (applies to non-numeric resul ts) [facility] N-Acetylcysteine (NAC) and Metamizole em ve the potential to falselydepress Creatinine results. Baseline values before medication adminstration are recommended. Patients undergoing treatment with phenindione will have falselydepressed results. Patients on phenindione therapy should be tested with an alternativeCREA method.Toxic levels of acetaminophen may lead to falsely depressed results forpatient samples. Glomerular Filtration Rate >90.00 mL/min/1.73m2 [facility] GFR Reference Ranges:Normal Function or Mild [...] of Health and the National Kidney[employer]. The [place] method used in calculating this result is traceable to IDAL standards. Glucose 69 mg/dl 70-110 Below low normal [facility] Sulfasalazine has the potential to false ly depress Glucose results. Sulfapyridine has the potential to falsely elevate Glucose results. Baseline values before medication administration are recommended. Calcium 8.5 mg/dl 8.5-10.1 Normal (applies to non-numeric resul ts) [facility] Sodium 138 mEq/L 136-145 Normal (applies to non-numeric resul ts) [facility] Potassium 3.8 mEq/L 3.5-5.1 Normal (applies to non-numeric resul ts) [facility] Chloride 110.0 mEq/L 98.0-107.0 Above high normal [facility] Anion Gap 11.3 [facility] Carbon Dioxide 20.5 mMol/L 21.0-32.0 Below low normal Health system The above 10 analytes were performed by [facility] [id number], ,[place] [address] ID Date Data Source [id number] 05/03/2021 05:00:00 AM EDT [facility] Name Value Range Interpretation Code Description Data Arabella rce(s) Supporting Document(s) PT,Patient (on Anticoag. Therapy) 13.6 Seconds [facility] Attention: Effeciive 01/03/2020 The nor mal range for PT (on Anticoagulant Therapy) has changed:Previous normal range: 10.1-11.3New normal range: NoneDiscrepant results may occur due to anticoagulant effects such ascoumadin, direct thrombin inhibitors; argatroban (Acova), bivalirudin(Angiomax) or dabigatran (Pradaxa) or direct factor Xa inhibitors;rivaroxaban (Xarelto), apixaban (Eliquis) and edoxaban (Savaysa). INR (on Anticoagulant Therapy) 1.2 2.0-3.5 Below low normal [facility] Suggested therapeutic INR ranges for ora l anticoagulant therapy: Indication:INRPrevention and treatment of DVT and PE2.0 - 3.0Prevention of systemic embolism with atrial fib., acute IN and 2.0 -3.0 tissue prosthetic heart valves.Prevention of systemic embolism in patients with mechanical heart2.5 -3.5 valves.NOTE: The INR is only valid for patients on stable oral anticoagulanttherapy. The above 2 analytes were performed by [facility] [id number], ,[place] [address] ID Date Data Source [id number] 05/03/2021 04:56:00 AM EDT [facility] Name Value Range Interpretation Code Description Data Arabella rce(s) Supporting Document(s) WBC 5.87 x1000/ul 4.80-10.00 Normal (applies to non-numeric re sults) [facility] RBC 4.05 x1Mil/ul 4.20-5.40 Below low normal [facility] Hemoglobin 10.8 g/dl 12.0-16.0 Below low normal [facility] Hematocrit 34.2 % 37.0-47.0 Below low normal [facility] MCV 84.4 fL 81.0-99.0 Normal (applies to non-numeric resul ts) [facility] MCH 26.7 pg 27.0-31.0 Below low normal [facility] MCHC 31.6 g/dl 32.2-37.0 Below low normal [facility] RDW 15.0 % 11.5-14.5 Above high normal [facility] Platelet Count 204 x1000/ul 130-400 Normal (applies to non-numeric results) [facility] MPV 10.5 fL 9.4-12.4 Normal (applies to non-numeric resul ts) [facility] Neutrophils 50.9 % 40.0-74.0 Normal (applies to non-numeric resu lts) [facility] Lymphocytes 37.6 % 19.0-48.0 Normal (applies to non-numeric resu lts) [facility] Monocytes 8.2 % 3.4-9.0 Normal (applies to non-numeric resul ts) [facility] Eosinophils 2.2 % 0.0-7.0 Normal (applies to non-numeric resu lts) [facility] Basophils 0.9 % 0.0-2.0 Normal (applies to non-numeric resul ts) [facility] Immature Granulocytes 0.2 % 0.0-0.5 Normal (applies to non-nu meric results) [facility] Nucleated RBCs 0.00 % 0.00-0.20 Normal (applies to non-numeric r esults) [facility] Abs. Neutrophils 2.99 x1000/ul 1.92-8.31 Normal (applies to non-numeric results) [facility] Abs. Lymphocyte 2.21 x1000/ul 1.20-3.70 Normal (applies to non-n umeric results) [facility] Abs. Monocytes 0.48 x1000/ul 0.14-0.97 Normal (applies to non-nu meric results) [facility] Abs. Eosinophils 0.13 x1000/ul 0.00-0.76 Normal (applie s to non-numeric results) [facility] Abs. Basophils 0.05 x1000/ul 0.00-0.22 Normal (applies to non-n umeric results) [facility] Abs. Immature Gran. 0.01 x1000/ul 0.00-0.02 Normal (appl ies to non-numeric results) [facility] Abs. Nucleated RBCs 0.00 x1000/ul 0.00-0.02 Normal (appl ies to non-numeric results) [facility] The above 24 analytes were performed by [facility] [id number]man,[id number],[place] [address] ID Date Data Source [id number] 05/03/2021 01:45:31 AM EDT [facility] Name Value Range Interpretation Code Description Data Arabella rce(s) Supporting Document(s) Care Plan [facility] KLGUUo9wVkLVAnUd75/QFXapFMNnu5RkUJieRBk1SWbjAVNiU7JfJTF2pS7mOZF7XWcDNeRrJzNiDQM6 lbm [file] dynamics ax consultant+9GuRJmvGWNbA6eRTi7+33/0PDLdbTHDey4F082phGsotG1xVMqG/mqJ7mtTb45+j0NK416qYl0yK mFtJm1yEDWntd/0x43ygazncNr2QpbD5pkftxjeuv+KZyqPiHNsWPZfh+y6tSk2FfwDg6mrnijRq1WAN bfJzgdTKwkDM/ck+HY+DgHkJQPLD9vXLp/MSDztTas dQ6+yuISlPkqaCU01ciN/1I4/o76nCDleJf9v0kkoHrF0n+/U9XVhoASsnKVMYtl/R7HtwK3cpj64QXm Bcs5n5vQhMdF3ATAt8j7dK01Be8/0378n/wTo4ytdun5GPj5nq4mw1ijakTY/wp3g6v9R2VCmsud2q6M AFuB/S8yC6EudKH5Cnp5ckY8ps8Ot+mAwyXNw7VH19 sp89llBQvDzf9V+L7UXMu0Kul6zy1u4+kan6K1f5XzBr+uXh2kY3zIAq4QPSrx3ekmb/UufvO2f/O8h/ 4UTT/J0wWi2q51gMCskKC+LrFCwfMbRloYj2BqGWPbKL2CVCZeaIkclGipy882Ujgom4Biaa+8hR4KB/ a86SqUV2+M6oJLfg023VR67b69k7/H3gjd4CdS3va0 [file] YBAmSmr1Y3EhWVOwQh6jJMJKZq0+YCurrDIvsObqAPDIWhWcGQVfDEhyIJVZGg5I ID Date Data Source [id number] 05/03/2021 12:15:00 AM EDT [facility] Name Value Range Interpretation Code Description Data Arabella rce(s) Supporting Document(s) Hemoglobin 10.6 g/dl 12.0-16.0 Below low normal [facility] The above 1 analytes were performed by [facility] [id number] [facility], ,[place] [address] ID Date Data Source [id number] 05/03/2021 12:15:00 AM EDT [facility] Name Value Range Interpretation Code Description Data Arabella rce(s) Supporting Document(s) Hematocrit 34.1 % 37.0-47.0 Below low normal [facility] The above 1 analytes were performed by [facility] [id number] [facility], ,[place] [address] ID Date Data Source [id number] 05/02/2021 10:54:25 PM EDT [facility] Name Value Range Interpretation Code Description Data Arabella rce(s) Supporting Document(s) Consults [facility] JRNHHk0yWkMTIzYz61/FAGasNHXea5SpKYpdNVi1IFhhCJRaB3HaOIO3hI7fMQN3EWnLVoBoFeEtMHW9 lbm [file] [id number]== ID Date Data Source [id number] 05/02/2021 07:38:00 PM EDT [facility] Name Value Range Interpretation Code Description Data Arabella rce(s) Supporting Document(s) Hematocrit 33.3 % 37.0-47.0 Below low normal [facility] The above 1 [facility]es [facility] [id number], ,[place] [address] ID Date Data Source [id number] 05/02/2021 07:38:00 PM EDT [facility] Name Value Range Interpretation Code Description Data Arabella rce(s) Supporting Document(s) Hemoglobin 10.5 g/dl 12.0-16.0 Below low normal [facility] The above 1 analytes [facility] [id number]man, ,[place] [address] ID Date Data Source [id number] 05/02/2021 05:45:33 PM EDT [facility] Name Value Range Interpretation Code Description Data Arabella rce(s) Supporting Document(s) H&P [facility] AIRHWz7oDeXYAbUs31/PLIemPOCed9StREbsWDd8QWgsRYOtJ1BlMAU1jB9oOEQ8VVhGVbPtLsBeFOD0 lbm [file] CARLOS A/vgKmnbmVcZi1Ywmc8yLQHMzm/0G14EPgfa5JMFZDO9z5z+n8eF5QjLRKmX4qPl6v57iFlY40+SOUo [file] Kk8HY7COceTSLcf+HIioB8/NURSING HOME/BBvNKcsvDT7fea8KxFC89Fb+CGCUaxxrJYvNGGjwqmKhv2hjBHIme [file] eQX194TAHMqsPSJVncZcNkY82WumQQVy0trol9nVziXfcwtyL4j+Y+5Dp+nqTV2DxYtMYkIb5bOq+Juan David [file] VhvtTb+7JdVZaNvlRkE5FYccIOz5Qef8CKOhUFe5mB8EIME/4vFkl7fGhOtm0UnIgUZ79z9ctSpcM/Kristian uZ2hlfxOejze1FEbU0Utd6jGtU0xLaXioD823fPAm+ e29x8n5ikkEX2KHVksRuxFGQz/NccpbNc2RWcxSa+uU+cS4IOIbHP9eqmYfMRtZV44uFzJp/jnQ3+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 [file] UmGMzO6k0LoTBwdidIooeSMgfWacguvEjfvuRl+ JAAl6z8VirRseqFkCxDbK878LvnwbHYY6YcnDiDBh3uS/T3lIDHzfOZEHfFyFdHzrkCp+WmqBU+FpD32 F/P3DtsYyOqqR/L8/CXoo36KIGmTX0LvGCD2KvDC7BQ+AogPBG77h85E46P0Vd6RD+/Bi/BGH3rSou+m k4GltKDpHjj/7Yz2itx5/L1gsbWrx5XeVaIeQQNGBC I8LExwPsz0KGFptdpZObujP2t6hCwuoJ4Iv6nH+al+yMB7lOP4BgJKtvBmOqhqYGOtR8iytT2zujjOgU 0dwFSldDIU4EWD0yI/wBkhd2VbWaXQaB/UeacFZyoSoT+2pqTI58AlGnnMFwkmz4KGhxc3k9mSJe1ISN LGxXDRv+Mf4F3juZxSR+Angel+51PVoMzL0ie+Pnx4xM [file] /tM+gJrK7CwfkGqJ3gx6iBXlOqpozPqHE+dUctH+COLD MEAT CHEF [file] EjIOnwlKMkhbQnq+o9+52nENML7g6Bhf2B7TcR t5phA5Szy+HdFgdBmR3n8FzBD/EB1P51jpbkN8l68QrEVYMcWcAPIneHWoI/siXSSulR7o5+/s+f8v9v g3DMcxMEezZpkv5zD71y8XIPA6PdCPb3Jfd0rZuS/vH+UmrrLJJGvA1TyHNtr746/3sziBRdVxCW01ck YUBbJvB2A5vX/SmPCmytOo+vzyLAC/wncO2KNx+gnq spJHXRb3iaK2Fsez+fR01H+o8qRLyeHSxLKmR3EU/d4M7KnX1Zq+NJhdLteH1yvrloFiJKyTESsaloqE GQMfAAIEYuB4NQfNcCBrOyEer2+9rY0U6i8QoUzVgsZ8ZG/FxQ5fPtRXZyhXHt/mbtJFc1Yu0CksG1M2 RWqJWOR2QVvsNV8LxtWCVYhiCpLb/r2o5kj73YC6GG 0i/WUWPOEaZm2Ypj44N/tp7dEBRKfrw6Ztnp6Q+Z9R4RpJ+QkhxR8Mnc0VPaS8En3p3lFJottWGEideg oYQozdo5pybbyh6wsKKQxdvqCEXTTzofbgz7YtOMNuo+djmz5mEa9lAinhuRcg//wo+eLgrzarE6g9ss [file] JtxF/QhJ3uvPFRbZ5MSm6kd+eWnfoofpoaLykIOE3T5Bk6xo5HsnM6+svp research & ebusiness operations/WnnSa92HjAeCMOVO2aPPkN [file] rL7b6Eyn11xEw6/mELMwO6eOiJ9Bs//58f7+6/sheet rock installer+uhwDnudvjV6vXOsr80FhX9V7A54H2wAph84lmYy [file] C+vfz4b20u+wFajKZ6IK7iJwb4Crt+meNzWsD [file] /H1CE+GHoWuxgmocjvQaeS1X7qXbf+0acPe47o/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 [file] abdifatah+SR7hzM6uD9tfE0xN1EmfSwdO3dBHH0tYNImB4+m+f7y0LwsQUvF89PcXXzZ4H/ODYH8fgJ3N9Lhd e3xHWxpUJ4Big7Xe8mSkWQLzncIysxdj/wf695Llgx QFkcEvIaSa7z+u/2SJlYXs0YCgEczS9+Ucqd8K23iPB37rQQCCm7QlRAw8dzjsp3flBthtrBtWY6mCbb L8Fj5PRMMkr3jfmYkk3AhAp/b5gvvgQGyD+yLOJh/OT83uI08wC/z9p3jCf7YpjdADbfLtyy6W+MNj0C gxBU6NNehNQ5LPDjnDNnWkuGiRv0GZFD2hLKovBL67 GtpT7G+XTaaAAX8WjewJSPCXJsA7AQRL/FyZUWDyV/R9hxBvj8rGcttQ6+Ysww4YoNlYmV3sdR/7LdL0 r1kgSOSoCeDwDcbOZK2Zl9lK5HZ0tg41mYPCx3qfDuu3q33cQZ2h10kCanonZxD9MyifOBp++TG5fbbv YA2aPrLHL2i+dTEsjtIMJD480mlsnD2du8ffrGTLXP qWBaMykTf1WTr42xyYjH+2Mm1s79nxtHRTFY/lAAPnjQzJvrvYGA0QuqlN9R/l7YRd5zIO/CaKwfxHmE nmgT8oJVN5h+R6vikY2I1ofYYFuO1yov4WyF93ngIQPnMYSfukLbLzSjVaeWc695Ae3TDW+k2TudYLwx QP0JhnB+78/OFm/lmp6MeO/CydRn6sMkas0LParebH T/7oElaKOkxj5G0BTVNHYIAL1RkHdlrwMpuLysSgIsE0+8gDEELeUQaMzP9W2oY4SzUmWgxG2XqsuXJS upI1YqcJAFgIEYn4+icoA0hianYHtkzvwoIja4NTHKB8z+shToryjaoypimK7MkKQbLNKx9Gk+gTtmVU KTVFDvf4SDy+mGLOq/VLMkDKLoAZxGpNr0C5atTLo3 vyCHph0xyh18CoLJphydssLRMHjnfHDGpsl5iqJz2eJXuH/n4EZiaUvWIGZdShuBNUPSSS0HyTz/IlFO coagulating bath mixer+Q55hiuSqNKLPOlE1y1XbMElZc6aualX5UncftpOC9ZugCm7eX6aTpNfDnC9zZiUCY/GDOvBjdh5Q [file] Ey21HItAgXB/z8xxbl3vb+cjTHeEvfgfZy1C1w+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 [file] GeAfChW1PocSVVC6OPbxcAhI8YkRiQMQEISiUs8xAJBwoC6yuuGlIDoRhy1Ou+3Dtt3cBvfGEnjVH/Carlos A [file] 2Ct7de9+9fyeEGTqiTCgfjGykcZ/Kristian/e7yWICrlSXw sheet 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 installer/Qe+aiiHIivPTp4y2Xbl/dp0eTKB+edyLe+bCrgUbJ2zz2Y5I8fOSrO+98H5KI2SmgHTkNjwr9p/Gr [file] P4+33Waqm8GjiLodEJWkcBqZDD5qCmgtCLOjAG [file] CARLOS A+evS2SBl3jgUPJhFVPocKq1Huk/AA9Cn2AjBdZ7fJOEMrYwPYjTYAa0huJpjMV8BO3SAlC7z3g1gqx [file] t5dtU+Sh0q3xEInxO7LainOehJSQn3G7BGEobk884PY+gSNQw5wY9Y/hjEOHvWsTR8N0V7dSEmxiY/Walker Se1k5tc+GKmZxb/vNMti+dihOcPIyG1xJFt [file] SzC8XTAx8yul4PCfEpUr2b7DPoWpkmKnCEq239lM8Q7JFMzojE5kyAjifpo9Dj9Uv+qiOYNjMef4+[place] [file] 42hZ50vJdJR07ah4MblhhRZqvUqAO60SDTWUpRL/Carlos A lwwsbPN3ZqxXNAv+HCa/Ijnnmsxyp7fZd/70uEx0RX4A+yy8zP441/f6bdWN41f3p8clecdMKFqGUfye Z/9T3DSVPiqWO93JyMlIqnb8gwAVvHH8EDXNzuIbF/vuma+dx8opCXe/zjVOZgte+iArw0crC5Uodf19 fY2ZFJsPV6FD64GNXK0vebO9EYaYNTkmKUruuZMyJ+ E07R336xYeqcWKFs9bviWdlNUAEpu6qh0oqV+9j6NABlIMb3SQP3GQXVypRFKn2OMxzh7V6zWlHxifpm cbpw11gAqI8L5L29B8CxsMi8R6nu7q4qDxm3DWp25apyVC/Rslt05X1K2kGsoIiNv7IqeQ+bffQO1URF gfLECOWk+fhdWjhABIfXYbI6gBwUqdAMUDCDb6pl8w iZF4/yhDyHNS9LvTcMXvb4QajKkRkJ3ESIjhHoXOV15iR6SCXCzXNDFWfaDuSviRtGsmNGZPijSXY8im dGLoWxnblVOjatRPzFDtR/T1fPuhkjL4Tg0lZT1eZwMy9UXCWgy8r5ikfeIQ77iSoPIAbDLVRiRUjE2t mGeZPFKtVyT/Okt+K6tNmsguCQ1EssBRkMVi+Y0/ [file] 3rZ6/ToVtAAkGLLEmgxoNVXJSLLBJZjWNkUtPdvOPXanI4EdG+ORTHOTIC AND PROSTHETIC TECHNICIAN/2btkUcfAZb5J+zrGSU4iFVU+uF HOQJ+a84p7x92J85fvnKbvh4eYKbfHuG9/S48cGgv1XE8zb11Iqpb8ED5w3aw/5/RRTOnm9mXsapE+1P t/NU+CNdF4GBAL2nNaRNyFe49zo45+rA0x2IWl9ZN4 zZkuQHB61SksEgAVKusiKmjzyP8x859/g5rMebxR6o7BTfyG5qoScYYgV40/4DxKz2g3kNds8pCCgX0x 4rgsZJfrF5141ith8/mv41CeS1f86tgLiCYt/qme09Rz6j8KbnOTZqMLbV+anvMWMQr5Vk9KA1KVopsX oD//rfOBp8Kn/SlkohXNOqbgLPKjECT3QDMZVyG/Bt CLVEvryyhlp7LbzIk3FCz/zrU4oAt6rv0BQGMNufZDW4bptjqHxrmEtW+qXiuOCvth3IuGhjxW4WyKpN BukDZnXcqECZKWjMYBSanVRxGzkHl+GX7CPNCH2e8D4vupGyHtLYFVRuarBIw5cGh8JnMu9N/Egnh65K DKXIIMLfCILU6I/E2KH3yMRLIJhHTTIfJtE2blUkkF [file] NEON TECHNICIAN+Zb9SiURE9i1EtLX1uOup1TQ3MAdAypfjJhCzaVn [file] ujTO4umuYDyiRN7wZsG/u/va13+Restaurant Crew Person+nHsRc151Qv+R37iWMmjsKiraclvre6Ta4jrI9p6YQJKsTQYJ+ [file] Pf9T0vAj/iZ2E1JA//6H/pXf//jailer chief/2FIoc66OgH7lo [file] Carlos [file] g6TYsAOGc9qedGuQvuevc4M08e9iXb9mIkIn4HMp4tzYE94mXeFF8j0Jyd6Xq5xMWzkHddXQnHRc++NEON TECHNICIAN [file] AgICAgICAgICAgICAgICAgICAgICAgICAgICAgICAg ICAgICAgICAgICAgICAgICAgICAgICAgICAgICAgICAgICANCiAgICAgICAgICAgICAgICAgICAgICAg ICAgICAgICAgICAgICAgICAgICAgICAgICAgICAgICAgICAgICAgICAgICAgICAgICAgICAgICAgICAg ICAgICAgICAgICAgICAgICANCiAgICAgICAgICAgIC AgICAgICAgICAgICAgICAgICAgICAgICAgICAgICAgICAgICAgICAgICAgICAgICAgICAgICAgICAgIC AgICAgICAgICAgICAgICAgICAgICAgICAgICANCiAgICAgICAgICAgICAgICAgICAgICAgICAgICAgIC AgICAgICAgICAgICAgICAgICAgICAgICAgICAgICAg ICAgICAgICAgICAgICAgICAgICAgICAgICAgICAgICAgICAgICANCiAgICAgICAgICAgICAgICAgICAg ICAgICAgICAgICAgICAgICAgICAgICAgICAgICAgICAgICAgICAgICAgICAgICAgICAgICAgICAgICAg ICAgICAgICAgICAgICAgICAgICANCiAgICAgICAgIC AgICAgICAgICAgICAgICAgICAgICAgICAgICAgICAgICAgICAgICAgICAgICAgICAgICAgICAgICAgIC AgICAgICAgICAgICAgICAgICAgICAgICAgICAgICANCiAgICAgICAgICAgICAgICAgICAgICAgICAgIC AgICAgICAgICAgICAgICAgICAgICAgICAgICAgICAg ICAgICAgICAgICAgICAgICAgICAgICAgICAgICAgICAgICAgICAgICANCiAgICAgICAgICAgICAgICAg ICAgICAgICAgICAgICAgICAgICAgICAgICAgICAgICAgICAgICAgICAgICAgICAgICAgICAgICAgICAg ICAgICAgICAgICAgICAgICAgICAgICANCiAgICAgIC AgICAgICAgICAgICAgICAgICAgICAgICAgICAgICAgICAgICAgICAgICAgICAgICAgICAgICAgICAgIC AgICAgICAgICAgICAgICAgICAgICAgICAgICAgICAgICANCiAgICAgICAgICAgICAgICAgICAgICAgIC AgICAgICAgICAgICAgICAgICAgICAgICAgICAgICAg ICAgICAgICAgICAgICAgICAgICAgICAgICAgICAgICAgICAgICAgICAgICANCjw/oLNkL9cwwTGwgqA6 O8juYc9EEk5FLJ8wu8FoFOXvUNuwkwXuLefXGyPdTWSvDezMJkp9OXebTZ3KnKTaS2DbZ4UyLOfbCA0C VIYyHSDpbBJaYOWbQZVnNwD9TZSpQVvrLQ4ZpXAtTT dyOVVdKPApCgPbQSImSZYsQJGaOGWzCYBGNYMaTTCbXfYmZLNoUKGkZRtcVTRCTAA6YLBtPcVhJGpgKY 4Wj3PydQI8DWy+Zy7ZWZ3nr8GqNLp1UUThDN7hag4IFTfGBtAlI3NsvrA3QMV1VPKnDp5SYEYyQADkzO D5VGOuLSXCMnDpK7NlaX59ZLHPIf0+DQplbmRvYmoN VhS8PCTov3QdVDh9ST3CTLNyKDm5hBFpQPYMISM4CLMwyZamvPTNJARwgURsJR4QPUH0EBsbCiTmFsEi ASMbTXjkKODMBZdFNhFxS6Gsv1GmIxN0RQXrZuKuNPcyOEIzZjO6IX17eHuiHO8PWZJhFHIvGX99AXN6 DLLmNc4LUs3YCjPbWO7sdc8EKHHrANEtKiaLLpy6PS xdUE8LvEFmC6AjnUNec3zPBqYfP5AZCHLiZKRkGo5WFBHcRnHoFCIlMTpbLJ9kLZHzQZHLsXtknjQ4GC 1ROR0bqaJoUZ4RSyDmWj6yMm5HYyIyD5VyW2VcTVQdOHDTCZvnYE3WBFnyKW0iGO1Uo3KHuZIczF9iam 8HQPCsQKLlBgwauj3RLkrcS2M5qBayJCUaVVPgAQLX RDfiAN7CQJQyXCL0HSD7YmRzPFANKeRgY84dPI8YA0Arv54vNqC2JMMxKdDmUZoyKW08aNcffeZejSAh rDvkBZ9BYs7+MMeutsSbYrqIJwffZCKULnHjGAfXWyUuJKVrMAArQVMrLsZ0PqXaNw9WFDZwHZKaDYCi EtXdSOSoWPRxMNwzTIQiJpB4YOs5GVTjJWCdRM5KVe ZsWMR3CohnOJRjBSItPQSkux8NPFEcJLZcQZF0MyVjKROcFCNvTDymPLEnQZCzMFW0CPStNYEkGQ2WQn OiPJEzLNLkBUkwYJHiUPIuck7YEJHaPKYdQaF3ZZBdBORfYZThKFetWGJwROV8BAn7QWYcVHJcGM0TNj OsYNQkULruLBMuSSFmVKLpun8UVHFxRUOsGSS0DxJq BUEjCRNgFLhkRETtHOZoIaO8DONuLLCtSN8ZPoPqFKVyUGL9XpUuGDZeJEQzfr1FLSZbUSRfRxE7RXXv KYAmDQGlWNhoXVTnYUOtJnQ6WQIzZXFnWD6JPoQnEJPyRFSnOZQhBOUoKEYaai6SIRVsAPReOyY9VHFp GHNqBXFsCGvlKFAyPZEhRUW6PLGjHKOjVD6KPgArDR OhZHEeWIPuPJBgXBYnov4YHHYkDUFrDfIpGGGpLZMuMKZzTGpwHCEnFHQ0VmAeGNHhRRScFR9TVmDeSB LkQKeqMEibLGCiADVssd7SBFIuQNQfFsIzNBSzMFTtPRClHDluABPfYRU6Zoq2ZVBgSKEtQW6GOaCoCB VqXBk3AGakWDRtUGThrf9WLAScREBiPVt5JlVcQOTd GSFcNWoaGONcRVM6CDR6WNRrZBXsBR2NKmUzLEHvAMr0IYscKONmNSLdyw5CFWMwKGDcAAW6JUAcHCPn HFJbWVrmUXYpQLYiOfieRESyJPIrPK4ESrUoNZTfAlEbUgPiZBVpQETksy4GWGJzACYgPWJsHrPxZAAq RFUuCOurEEWpZUNtBxE9YPJbOHDkLS1TIhExTVFbCx W0IaScQINfNPUilm5LHMDcXPZfGua2DhLlUQVgJDCcXJkcBAViDIHeBArcTJYuTKFrHJ8TFySfGBSoCh GwYnSmYNDrYCUbse8DEVQhXLPmAFE2UsTdUUOtNAJtXBryNVHrMXN5HWScWWTcZKHdLF8KVmHgHLQmCu NfPpSdJNQhTTBqqs1CDMHaJMXrXkR3JMCcVIHrGQCr ZFyhXTLeVTD8WCVtLCWdPSLzBO7KEdCwORJ9WyP5HNIxNGMnRSUskl2GVLKyWyIjNyo2XKWzEXZkNFRp UIgsSFDiLaU8EHI8GIKeHJJcRL9KBxYrBMI4Bmn8XgNoVITwQXAmcv0UFJSbJbDdVOM7AoZqIXGcJPSq MSc7noQalCApVLc2UC9KC6QmksWiDAnQFy4Wm000QF F9AJTdPa0LQ8jyWx7iVFVsLFWZIm1VAVq2NjZuFqGsJaGbA0P6EpV3GKRuFHD9NBhdZhBkKSMaN9I+ID ikHVEiTAHhAvSyJSI9ZYhzYDCtCvopRLFgQDFqSfQkGO6cLLCZKb8+QExcnWQinUgoPJXAKqD0Nuo1TW eRCaMpOI4EAQr= ID Date Data Source [id number] 05/02/2021 03:30:27 PM EDT [facility] Name Value Range Interpretation Code Description Data Arabella rce(s) Supporting Document(s) Progress Notes [facility] XOPBTe3cFlXRQjHx81/DOYrsASEsz9NiUMyhZPk4AOfxHCQeS8KvREV0pJ3rCHU8NUxGBeJoMeQrQNI6 lbm [file] T3omJnKIfdZgddYW0DIRESZ6MHTt== ID Date Data Source [id number] 05/02/2021 03:11:58 PM EDT [facility] Name Value Range Interpretation Code Description Data Arabella rce(s) Supporting Document(s) Nursing Note [facility] TYQUOx3tHoDKDxSv96/SCSimMRLiq6XzOBkgIUa5LUbpAXKtK2QwUYX7aP0oPLD1XEzQWaWmGoVpMAX5 lbm [file] DlP2MSAfRPWrIPPwTaD+JJ9dUAz+Bs1Sd7XhwuU4wlLfMHicOQn7Uk6FTIYGW0VUTk== ID Date Data Source [id number] 05/02/2021 03:01:14 PM EDT [facility] Name Value Range Interpretation Code Description Data Arabella rce(s) Supporting Document(s) Care Plan [facility] RYYCHs9uAdJOThXd19/TLMruUIWrj8TiTMziMPy7OScaIRTwF2TxIZW8gQ2tVSB4JOoDTuRhLiMtBSB4 lbm [file] ShRB9IIKc= ID Date Data Source [id number] 05/02/2021 02:32:34 PM EDT [facility] Name Value Range Interpretation Code Description Data Arabella rce(s) Supporting Document(s) Nursing Note [facility] OYUUYs6sGxGZHnHe17/ZVHfzKGPvg8ZkSRacYRn8LQycNFTlY9ShIDI2uK4wNZH1HMgINePaPdDhBMQ8 lbm [file] Bl2KLgR6BZT2cRJvPw0IPxW9KDPYJyGwMD7BZGt= ID Date Data Source [id number] 05/02/2021 01:51:03 PM EDT [facility] Name Value Range Interpretation Code Description Data Arabella rce(s) Supporting Document(s) Progress Notes [facility] BVNPHj4aYfJJZjLq35/JPSraZGNqv5TyJIjnXEg6QOncEPZuR8SsIAL2yJ7sFIN9JXlCYyGuFdNlGCD1 lbm [file] n5DO3SCYQ2BCWcTv0AGUBcJY3SIBLzDHHdJRLGLcEr YXDyGzOjWKNrKPNUSSbqKIKmR5XzVOP8PJYzBy8LLQFxJQ1ZPGKoNkZtFJP+Qo6SWYHgKC0zryZgiID4 SANITARY ENGINEER+Fb4NICVeGAw1N5I5FVIrNVc8F9YYL5ZRORTpGBltIYesCQXrHHy5I1L6ZBDxS7MYL4Rpkbxklj8+ OZ9ZE35XRMJbIZy2Z7O2sHHzM3T7dMwUyJG2DG6NWC 2JrHc7dYVtoL3+HB9IR8BEZbMaDCe3C2H6oWVpS6Y6zDvPvXW7EF4CVI1LtSTwYPMryvIuTe6sS0FNUI kBHqZLUQO1LA7DuWKcTX3WcWKVG7ZnsIYxUp8kATmrdHJlnV1xRs1oFWzqZN6RJwQYPTbLSBM3CR2VgL JaEL4OxXJPL8GkcMOwIv4kMTuktNKxvf7+VM3VHAHi Lb0OQp6+YXytbjZlHnjDOfO4HYEkh4ByHWp2AT0HPK2gsNieNZU8Wk3XoTG8bDLzN7wGYE4MoUBmP39i oOXeIVAuCl8QGfB8tzRdmJ6YGO35xWSmr0G8MKDzR1ozMYidf14lTHepCOmMOV5aKOWLBGgqDYsrBVV4 HvOhctitTBDjGr4EGwDmTTt7oO0osAL8NQK5AtntiY XgQGysLtHcRvNpSgK0mSbltje8BArjFV1hKAfsvonoDTOiWxg+LLgzJSBuVBPsFdfVUWLkvZ7aymA5yf HpYPzubCVsCv1xv6y6SevpLy8aBh8fVSh0JuCdWpQxJVRuXc0kjL33CGvoacGgSd8EBpBsROE9Y1OsEm pSREY+MXocZJmbtCk7bLDtFFIaEd2PFLKvEFOkOZCu ICAgICAgICAgICAgICAgICAgICAgICAgICAgICAgICAgICAgICAgICAgICAgICAgICAgICAgICAgICAg COUnMQPmRFAaJTTqKPIbNSSjZUVqUILtRDXwBKMwMF8ZMLOgBTEiLEXcXKYqFYLwRUQjOBIbVHJjEDFr ICAgICAgICAgICAgICAgICAgICAgICAgICAgICAgIC KaLAGkVMKxTNIkCEMtEZMzCLBnXSBmUVPxHENvUFLcCCZdGYBuGGJaPZ2LVCNvYDEhJEXjBMNkDGOhTY AgICAgICAgICAgICAgICAgICAgICAgICAgICAgICAgICAgICAgICAgICAgICAgICAgICAgICAgICAgIC LzUPSbJEKhTKJlHEQkISHbAVVwDXVeKA9MXBGjCTZc ICAgICAgICAgICAgICAgICAgICAgICAgICAgICAgICAgICAgICAgICAgICAgICAgICAgICAgICAgICAg FSTzHPKbBYTrODQyYREwVONmRSBdAOQcTFQpLGOsCMSaOM1HFAUgCLDlHCSqAQCjEHFgDTYbQXFeRLGr ICAgICAgICAgICAgICAgICAgICAgICAgICAgICAgIC KqTKQjIZQqJKKxNAEhTFQqZJWeKKVbGASlMDNvVDZmLPUjJBQiNIJaWIQzYS5EBEGwEHYqJHMtEIZtUF AgICAgICAgICAgICAgICAgICAgICAgICAgICAgICAgICAgICAgICAgICAgICAgICAgICAgICAgICAgIC RoKYLrWGNhAAAtDGWzLHFqKMZtZQKxPFOwJC5XBSOv ICAgICAgICAgICAgICAgICAgICAgICAgICAgICAgICAgICAgICAgICAgICAgICAgICAgICAgICAgICAg JFSqQVYjBLDiVUPwNVJxDCUhLMCfLJUlAMAbFWSxCVWlARBgHL1AJRCgQCYpKCQxDTEoRXQsQMDbVQTi ICAgICAgICAgICAgICAgICAgICAgICAgICAgICAgIC MxFYRsAUEfPFCjKEDoQQSfVFIzSPHnMATvQCZyFNHbWVGxRKEaIBPsMSDcEOGfCD8XEQSfIVKqGOMjRH AgICAgICAgICAgICAgICAgICAgICAgICAgICAgICAgICAgICAgICAgICAgICAgICAgICAgICAgICAgIC BnHDFtPZAdDSGmAQIqWDVtEAWvJAWlDDXkMUWeUZ6S ICAgICAgICAgICAgICAgICAgICAgICAgICAgICAgICAgICAgICAgICAgICAgICAgICAgICAgICAgICAg YAWuPQAnMMMaOQJtNRQlNQVoXAAnTCRaVCHfNXSmURQzUYKrQFGsOX4DDW43iFVzw4L7KBJjRU2qkmw/ Cc1ONDwuwvTdsWBtPI0OKoPqKK0zzw6YSdRwMZ0wwh 8ZQRwWTrYiY2Z9cCHsFKFoUHQANqQfF81vXCwwVc23INgvQOSaHgXkRJk0To2WIcKcI6kjAECqRvT3IB VhZqOoXBjvBL1Ok3LwkERzMSn+Ry7YYI6se0NrEPzwSOJbUA9oie4EFBeJOvNyE2GdyoN1HIG8EFQlUl 9ZECGsGQJriKJwDmOkVLDJNmUuQ1EydH46JUTODg3+ ZUbiboNySmfTJsE3VXWwp8TkYRs9CZ2OIQOfSRb8iETyXCQwU1Xyd7TgRk23SMPhRyybWqprMpRTXNzy UIO4CLrfQeEdSlLvOTMqKDp3CsMBSXlYRzFpB3Tyq7DgHxW5IXCgVoXeCXtfCCIuPeO5ZV39mEafMU1U YJRrNXYuVM58TCD2GXJtVu4QEf2BRhAeGW3ccn7SGu aoXXSfPnjKGcn6MGrgJV9XbBQyK4OcjJPjl7iTKrLmV7IJTSJnRXZzEe6NHMTuFkUoTOHbLTpiYC6xFZ SzWJVChFkjgbG3EV6MJO2ekbPjGK7SIoYcDm6pMf4LTeHvG3JbH7AnLGYpDRFZZHwqIT3UALwvSK3eGD 5Um2IPbILvrR4hzx4QNRWkSKCgTxdsni0LNeilH7Y9 eZdiSRBmPkQqWTZFKXjlCS1CLJInJTA0XONcLJRiDUTXVuRfI93bTM6PC9Yrm62oBuF9XTKpQgIgHWwk TK60lDczaqZzoRGddClqVB4UOg8+MZzagwPfZbsIFqdtEOQJKtWpGgnRGyYsPLTcWMHsRQXsAjW4IyQd Jm8QGVJaWKThOKOcZeTuYDLwZKQjQFmoOUWfOMNwZW X5QQWoIGXnVO2WAjZbWQMiTlZ7JfufRIDhZFDoim9CTVGfCCSoNQE9AfKkTQXyBBLrQRwbFHInRIZrBu C8JQQwFBGePC5DLrRlNPOkINT4ZWKpURGeJKHtzv2NLRTaSKWiEwAwIATtWNQcYSMoBJwzALKfOPQtJl IdWAXzIHJpCB6IQnVhAZQrFKW7OOgsYMVzPYQgwr5I HYOhJVFxFYl1DnFbQMNuFILoOSrgYGUkXEP3BSEvZHXjEPXbWG3LCkTtTNBwUYCtWmKvOPJeWEPncp8H FLYuKRRgEsT2YXZoPDRrMWMqGHztJDSdVGX8ZZcmCXPxOGZlYD4CPzPxTPRzPFiiHKrtZPFfBQUrpp2L SGIzXCSqMPShATUzTURsBTVvCOsuKJCkBVS8FUs4JQ ClAXWkYI8KInEzTBDdAZo4NfbzVXVrHTFuyr1HTNXqYRRfVLKtJJAwGBDfSTNiHUzyHKZjRDU9Ojt7QQ DzNVEoDU8WQsOtQIFcZeK7VhadMBQvQZIqre5CKFCbLXJwYJfbNRAmWNAfTOKkYPhvCPYwXCFvZDv0FD YxACDiKN3HPbPcVQVbDbR5XfkqDWJlLAMave8GIGPy IWFlSyw4QvZrQEJgGBYiDHbgUXZsTZDzIPO1KPTaFMVpNH2VNnSeBHSlDhEtRokcBDWmWXYqdl2ZjQDv pHqedc1KUPnNHe3XkXwrUGP7VQemTc5itYByGmLnDAZEVy0IyiJvZKIgUXARCHguBKBqTFN7PcjzHPB1 HNQhJmDlNEMiBnB7GBDcUlGaRsQtA1W8GxW5AIQuRT ShLHnoPACoLPC6WOGgXFE3JlOdTqZyXBL4YSl+KP8vATu+Ay7Mv6HmjaT1naGaGDmrIlMtRx5CIZKXW5 YNCg== ID Date Data Source [id number] 05/02/2021 01:17:00 PM EDT [facility] Name Value Range Interpretation Code Description Data Arabella rce(s) Supporting Document(s) Iron Saturation 27 [facility] Iron 97 ug/dl 50-170 Normal (applies to non-numeric resul ts) [facility] Patients treated with metal-binding drug s (e.g deferoxamine) may havedepressed iron values. Total Iron-Binding Capacity 362 ug/dl 250-450 Norm al (applies to non-numeric results) [facility] The above 3 analytes were performed by [facility] [id number], ,[place] [address] ID Date Data Source [id number] 05/02/2021 01:17:00 PM EDT [facility] Name Value Range Interpretation Code Description Data Arabella rce(s) Supporting Document(s) Ferritin 9.8 ng/ml 3.0-388.0 Normal (applies to non-numeric resul ts) [facility] The above 1 analytes were performed by [facility] [id number], ,[place] [address] ID Date Data Source [id number] 05/02/2021 01:10:00 PM EDT [facility] Name Value Range Interpretation Code Description Data Arabella rce(s) Supporting Document(s) Vitamin B12 324 pg/ml 211-911 Normal (applies to non-numeric resu lts) [facility] Folate 21.37 ng/ml 5.39-9999.00 Normal (applies to non-numeric re sults) [facility] -----Interpretive Information-----Folate Deficiency: 0.35-3.37 ng/mL.Intermediate: 3.35-5.38 ng/mLNormal: >5.38 ng/mLPatients routinely receiving high-dose biotin therapy may show falselyelevated results. Additional information may be required for diagonsis.The above 2 analytes were performed by [facility] [id number] [facility], ,[place] [address] ID Date Data Source [id number] 05/02/2021 12:27:00 PM EDT [facility] Name Value Range Interpretation Code Description Data Arabella rce(s) Supporting Document(s) Hemoglobin 9.5 g/dl 12.0-16.0 Below low normal [facility] The above 1 analytes were performed by [facility] [id number] [facility], ,[place] [address] ID Date Data Source [id number] 05/02/2021 12:27:00 PM EDT [facility] Name Value Range Interpretation Code Description Data Arabella rce(s) Supporting Document(s) Hematocrit 30.7 % 37.0-47.0 Below low normal [facility] The above 1 analytes were performed by [facility] [id number] [facility], ,[place] [address] ID Date Data Source [id number] 05/02/2021 12:25:00 PM EDT [facility] Name Value Range Interpretation Code Description Data Arabella rce(s) Supporting Document(s) WBC 5.18 x1000/ul 4.80-10.00 Normal (applies to non-numeric re sults) [facility] RBC 3.71 x1Mil/ul 4.20-5.40 Below low normal [facility] Hemoglobin 9.8 g/dl 12.0-16.0 Below low normal [facility] Hematocrit 31.1 % 37.0-47.0 Below low normal [facility] MCV 83.8 fL 81.0-99.0 Normal (applies to non-numeric resul ts) [facility] MCH 26.4 pg 27.0-31.0 Below low normal [facility] MCHC 31.5 g/dl 32.2-37.0 Below low normal [facility] RDW 15.5 % 11.5-14.5 Above high normal [facility] Platelet Count 213 x1000/ul 130-400 Normal (applies to non-numeric results) [facility] MPV 10.0 fL 9.4-12.4 Normal (applies to non-numeric resul ts) [facility] Nucleated RBCs 0.00 % 0.00-0.20 Normal (applies to non-numeric r esults) [facility] Abs. Nucleated RBCs 0.00 x1000/ul 0.00-0.02 Normal (appl ies to non-numeric results) [facility] The above 12 analytes were performed by [facility] [id number], ,[place] [address] ID Date Data Source [id number] 05/02/2021 11:50:00 PM EDT [facility] Name Value Range Interpretation Code Description Data Arabella rce(s) Supporting Document(s) 01 - Product ID Red Blood Cells [facility] - Unit Number [id number] [facility] - Cross Match Compatible [facility] - Status Info Transfused [facility] - Product Code [id number] [facility] - Blood Type A Pos [facility] - Issue Date/Time [facility] - Specimen Expiration Date [facility] - Volume [address] [facility] The above 9 analytes were performed by [facility] [id number], ,[place] [address] ID Date Data Source [id number] 05/02/2021 05:35:16 AM EDT [facility] Name Value Range Interpretation Code Description Data Arabella rce(s) Supporting Document(s) Nursing End of Shift [facility] XHMDFp4iDyTTKvMn53/FQVuzTKXrt6RhRInbESz5RYxxDCIgH2NmCMR2lM7bJXI9BByPCcHyAsIsOHV4 lbm [file] ZrfBVQZr+vsH48/Fzp5wMm0uoHXoUfrE/zI8/p [file] ICAgICAgICAgICAgICAgICAgICAgICAgICAgICAgICAgICAgICAgICAgICAgICAgICAgICAgDQogICAg ICAgICAgICAgICAgICAgICAgICAgICAgICAgICAgIC AgICAgICAgICAgICAgICAgICAgICAgICAgICAgICAgICAgICAgICAgICAgICAgICAgICAgICAgICAgIC AgICAgDQogICAgICAgICAgICAgICAgICAgICAgICAgICAgICAgICAgICAgICAgICAgICAgICAgICAgIC AgICAgICAgICAgICAgICAgICAgICAgICAgICAgICAg ICAgICAgICAgICAgICAgDQogICAgICAgICAgICAgICAgICAgICAgICAgICAgICAgICAgICAgICAgICAg ICAgICAgICAgICAgICAgICAgICAgICAgICAgICAgICAgICAgICAgICAgICAgICAgICAgICAgICAgDQog ICAgICAgICAgICAgICAgICAgICAgICAgICAgICAgIC AgICAgICAgICAgICAgICAgICAgICAgICAgICAgICAgICAgICAgICAgICAgICAgICAgICAgICAgICAgIC AgICAgICAgDQogICAgICAgICAgICAgICAgICAgICAgICAgICAgICAgICAgICAgICAgICAgICAgICAgIC AgICAgICAgICAgICAgICAgICAgICAgICAgICAgICAg ICAgICAgICAgICAgICAgICAgDQogICAgICAgICAgICAgICAgICAgICAgICAgICAgICAgICAgICAgICAg ICAgICAgICAgICAgICAgICAgICAgICAgICAgICAgICAgICAgICAgICAgICAgICAgICAgICAgICAgICAg DQogICAgICAgICAgICAgICAgICAgICAgICAgICAgIC AgICAgICAgICAgICAgICAgICAgICAgICAgICAgICAgICAgICAgICAgICAgICAgICAgICAgICAgICAgIC AgICAgICAgICAgDQogICAgICAgICAgICAgICAgICAgICAgICAgICAgICAgICAgICAgICAgICAgICAgIC AgICAgICAgICAgICAgICAgICAgICAgICAgICAgICAg ICAgICAgICAgICAgICAgICAgICAgDQogICAgICAgICAgICAgICAgICAgICAgICAgICAgICAgICAgICAg ICAgICAgICAgICAgICAgICAgICAgICAgICAgICAgICAgICAgICAgICAgICAgICAgICAgICAgICAgICAg QZEeIPf6E5qkJMIhYBCbOI4dKPa7Sg8+DQoNCmVuZH T7lvXpmB5PGF0so5AePGotYSMku9KsNEo6DT7YLAFaRZvwZH9ZSYkxuj3DFUUgHLIbtEDZj9ebWeJdBZ U2YGRdZapwAY1LIOLlK8zavcCpUBPgXKRZPG0XOgSgJ6RcxF42DHRFQq2+TKiiyyRzQsqDFkJ0KNRar4 EoHTq0GJ2NTIIcObilr4FxOkRrKLTPCFljMI7DOQK6 WYQ1GNNeYb2KVMNfU863deMmWY1DKi5CEtQmHX0ejl5NAjTvTEZqUstBWkz1QJsyHO3VwRBfJOxTfUFs aY2lHZOxRJVnCuXVzQhvrFJucKYSkJNsPBYwAXvszcDmQPysNZEPKIL1WAllPqRbRtJrTOHmAYuoArXS ATxTAzAoZ0Zwf7XfDzI1WXIqCeSvTJyxCGWqYtA7KI 19zLrnEQ4WRHTeHTLeBM48DHY5ISUnJg5BCh9ASdCjQO6zvk1QPmvpTUGtGnkVVmo7IBmwVJ4JxBStN8 BkpBHyn4jVVkDvA7ZJTZZjGYEeEf6SBEQuMjCsNDFeTPfcUL1rPFRjRZRUyTawwtL2DV4QOK8twgNrLH 8FBcUkTo8wLz8QPqCiL5JkG8OjTPHhEOTWNCpeNF9C UVjfEJ8mHZ4Is8NMvEWzgW5rhl5RXKGeSUXoFuuupe5GZljlJ0H9vTgwWHElOjOyECLRYYbvBR1EHRWv LPO9RDZeLWPqRMPGWlDrT05cQV8TQ0Uhh96fHwD8GWMhRxIyHUpaEN07lKzzdjYekVWrrSebIA0NTa3+ DQplbmRvYmoNCnhyZWYNCjAgMjgNCjAwMDAwMDAwMD WfMhP9QrWuFr4LPBMiGLDlCCKeBvQiCKJwUSXiHHskCHAaUCFuTVG7YOZdJUAxQV3SUdSdHDJnMsIaOM YlWPViHFOxyj5FSLMiYLGeGGN0HaCxPHXwSHTiJRjwJGNfIDTaAnI3BNHxRRHlBB8REjZxPFSaLOU8Tb SwLDZdLNWddw9WNXZeEWKsVynvHDXqCXFbSZZiSFlv XJZsDWFdPVU5TKEfIJNyCA8KTmMpYMVqSICaSXHkAZHtFACwrf8OFGAaKRNbOXD4HhIgMCOjFOSoFJzf GSDbEGR6FZWdFCHdOHKbLK2ILvWnPITwOXX3UIRwCQXiYBMctg8HJAKxIUQzNcm5XDJgVGCbTFCeCDsy WINmIVT0DkG5ZIQqEPRmTK5GIwJkJEHnISu0XCQeEX ThUKTndo1TLQYzHUKrQvj0LqEaJSGhUSSjANxcJETsHCT0BGCxLWRbQEWfBP1ATsEnFVAuDQv7WNLfPJ XtHLTarj1CLJPwHEIgMMLaPGXtIVVbIBHaROudDDAdIPK7LcOvGSOeEUEyRN6QLbUqSDVzPkDdXOWpOB TmFFYzju3ELJSrZBYxYROiWfLrYRIcHMUpYByxURVf FYKgIAN0NTVgWRNtGT6ECySzYVOiNiH9JTMkSHZeTBLqek4QABOoHNAmViK2SNOsXGIkBVIbDAieYKPs LYUnOOG2VJJlLQAbFC5CXkItBHKwTpC0KXVxNLRtREYdbx3TjYJksQktkt5WUMaCSe0GxXhvQUS5UTje Oy2pdMPqDpDtMHRUAu8DcoNpVYZuDOYSGUbpXPIaPU KsIjxbFQYtVLPpJ1OgBAC9TYK7EjKtBAAgBBYrPHw9DdM0M9WzHIQ6KRSaCBKsWCO7FEw6FmUqYPLwQX IwNWNhODk+MT3zVBl+Ot3Dx7VsucV5pkOgUBtlEya2YY3UGSURZ0XJOh== ID Date Data Source [id number] 05/02/2021 09:59:00 AM EDT [facility] Name Value Range Interpretation Code Description Data Arabella rce(s) Supporting Document(s) 2nd Confirmation Type A Positive [facility] The above 1 analytes were performed by [facility] [id number] [facility], ,[place] [address] ID Date Data Source [id number] 05/02/2021 06:18:00 AM EDT [facility] Name Value Range Interpretation Code Description Data Arabella rce(s) Supporting Document(s) ABO-Rh Typing A Positive [facility] Antibody Screen Negative [facility] Specimen Expires Date/Time Health system PATIENT HISTORY Pt Hx Checked [facility] The above 4 analytes were performed by [facility] [id number] [facility], ,[place] [address] ID Date Data Source [id number] 05/02/2021 05:24:00 AM EDT [facility] Name Value Range Interpretation Code Description Data Arabella rce(s) Supporting Document(s) AST 14 IU/L 15-37 Below low normal [facility] Sulfasalazine and sulfapyridine have the potential to falsely depressAspartate Aminotransferase results. Baseline values before medication administration are recommended. ALT 56 IU/L 13-56 Normal (applies to non-numeric resul ts) [facility] Sulfasalazine and sulfapyridine have the potential to falsely depressAlanine Aminotransferase results. Baseline values before medication administration are recommended. Alkaline Phosphatase 110 mIU/ml 50-136 Normal (applies to n on-numeric results) [facility] Total Bilirubin 1.40 mg/dl 0.20-1.00 Above high normal [facility] Blood Urea Nitrogen 12 mg/dl 7-18 Normal (applies to non-nume ny results) [facility] Creatinine 0.79 mg/dl 0.51-0.95 Normal (applies to non-numeric resul ts) [facility] N-Acetylcysteine (NAC) and Metamizole em ve the potential to falselydepress Creatinine results. Baseline values before medication adminstration are recommended. Patients undergoing treatment with phenindione will have falselydepressed results. Patients on phenindione therapy should be tested with an alternativeCREA method.Toxic levels of acetaminophen may lead to falsely depressed results forpatient samples. Glomerular Filtration Rate 81.00 mL/min/1.73m2 [facility] GFR Reference Ranges:Normal Function or Mild [...] of Health and the National KidneyFoundation. The [place] method used in calculating this result is traceable to IDMS standards. Glucose 85 mg/dl 70-110 Normal (applies to non-numeric resul ts) [facility] Sulfasalazine has the potential to false ly depress Glucose results. Sulfapyridine has the potential to falsely elevate Glucose results. Baseline values before medication administration are recommended. Calcium 8.7 mg/dl 8.5-10.1 Normal (applies to non-numeric resul ts) [facility] Total Protein 7.1 g/dl 6.4-8.2 Normal (applies to non-numeric re sults) [facility] Albumin 3.1 g/dl 3.4-5.0 Below low normal [facility] Sodium 139 mEq/L 136-145 Normal (applies to non-numeric resul ts) [facility] Potassium 3.6 mEq/L 3.5-5.1 Normal (applies to non-numeric resul ts) [facility] Chloride 112.0 mEq/L 98.0-107.0 Above high normal [facility] Anion Gap 6.6 [facility] Carbon Dioxide 24.0 mMol/L 21.0-32.0 Normal (applies to non-numeric results) [facility] The above 16 analytes were performed by [facility] [id number] [facility], ,[place] [address] ID Date Data Source [id number] 05/02/2021 05:16:00 AM EDT [facility] Name Value Range Interpretation Code Description Data Arabella rce(s) Supporting Document(s) Hemoglobin 9.7 g/dl 12.0-16.0 Below low normal [facility] The above 1 analytes were performed by [facility] [id number] [facility], ,[place] [address] ID Date Data Source [id number] 05/02/2021 05:16:00 AM EDT [facility] Name Value Range Interpretation Code Description Data Arabella rce(s) Supporting Document(s) Hematocrit 31.7 % 37.0-47.0 Below low normal [facility] The above 1 analytes were performed by [facility] [id number] [facility], ,[place] [address] ID Date Data Source [id number] 05/01/2021 11:33:00 PM EDT [facility] Name Value Range Interpretation Code Description Data Arabella rce(s) Supporting Document(s) Care Plan [facility] FWGAEk9qRoGNOtNg87/JKIqsLHDci9NjRQreEIq0KVzlIXGfP7VbJXU2gV6eWES3TVqPCfUsVdVgJBT[facility] [file] ICAgICAgICAgICAgICAgICAgICAgICAgICAgICAgICAgICAgICAgICAgICAgICAgICAgICAgICAgICAg ICAgICAgICAgICAgICAgICAgICAgICAgICANCiAgICAgICAgICAgICAgICAgICAgICAgICAgICAgICAg ICAgICAgICAgICAgICAgICAgICAgICAgICAgICAgIC AgICAgICAgICAgICAgICAgICAgICAgICAgICAgICAgICAgICANCiAgICAgICAgICAgICAgICAgICAgIC AgICAgICAgICAgICAgICAgICAgICAgICAgICAgICAgICAgICAgICAgICAgICAgICAgICAgICAgICAgIC AgICAgICAgICAgICAgICAgICANCiAgICAgICAgICAg ICAgICAgICAgICAgICAgICAgICAgICAgICAgICAgICAgICAgICAgICAgICAgICAgICAgICAgICAgICAg ICAgICAgICAgICAgICAgICAgICAgICAgICAgICANCiAgICAgICAgICAgICAgICAgICAgICAgICAgICAg ICAgICAgICAgICAgICAgICAgICAgICAgICAgICAgIC AgICAgICAgICAgICAgICAgICAgICAgICAgICAgICAgICAgICAgICANCiAgICAgICAgICAgICAgICAgIC AgICAgICAgICAgICAgICAgICAgICAgICAgICAgICAgICAgICAgICAgICAgICAgICAgICAgICAgICAgIC AgICAgICAgICAgICAgICAgICAgICANCiAgICAgICAg ICAgICAgICAgICAgICAgICAgICAgICAgICAgICAgICAgICAgICAgICAgICAgICAgICAgICAgICAgICAg ICAgICAgICAgICAgICAgICAgICAgICAgICAgICAgICANCiAgICAgICAgICAgICAgICAgICAgICAgICAg ICAgICAgICAgICAgICAgICAgICAgICAgICAgICAgIC AgICAgICAgICAgICAgICAgICAgICAgICAgICAgICAgICAgICAgICAgICANCiAgICAgICAgICAgICAgIC AgICAgICAgICAgICAgICAgICAgICAgICAgICAgICAgICAgICAgICAgICAgICAgICAgICAgICAgICAgIC AgICAgICAgICAgICAgICAgICAgICAgICANCiAgICAg ICAgICAgICAgICAgICAgICAgICAgICAgICAgICAgICAgICAgICAgICAgICAgICAgICAgICAgICAgICAg ICAgICAgICAgICAgICAgICAgICAgICAgICAgICAgICAgICANCjw/pYGbT4brmJAhfjH8P4ijLi8WBo6Y EY3qy1MoDGQyBUolnpOuXhnAZrMnCSZpCdrVSxm9SH pkYD3BmCScY0LsJ7ChNZrqXD8YWYLhDQOolVEkFLDlYSNwYqC4KSElIVfjHU8XyMAoHSagIMMrBFNjWJ 0WJOMvX118gtLjZF5MSw3IRhXsVV8wax0QQvZdXLFiNhvFSqm0QMijDJ1XkODcrIOiQeBgNRRLHlVtY6 rqd1LbCaZxMXDRMQdwXH7Rj1KcyBSnEWm+Wl4NAH1u h8AzVAbsQcLuMI8sdl7MGCrCRlFlR1RlxHlzYHCdyfGoXGkmbzOhnQCDhTKhHDJnENkbsfDtWWkpFSZE SQK6LVqjGaFhQtKtGSUuFQnxEpTPRRaMGhSkN3Wcf9YfCnY8FXCuSrGzYWlhVQNgYpM0CJ35iZkdUO9C KZWxNDRpKF40JGA7QCMwKi7FDn9FIgCfBJ1vbd1APn ajCULpZcyGQvd8HPlcJJ6QwMFbT3ZviJZyd2eJOkPpB5LOMCIoXIRgQx4RHFUtRaAlOMYyACaaPA1mAF AfJVDBoJhcetZ5XT4BLW7tahClEE8FQvVkOx2jOa9NCsAmP3WkG1PzJSPySLRJEUusDU9XFTbwQE2sZQ 8Uk7KDmQYxdC7hvt5DSURcXCJoVvxyaz1DIkloD4T1 zTfrMAWaFzLlBIUSCXdxYP5UGXUwRED3WZSfXDMiCVPWYkWmD42kWX1HG4Zkw69rChV0LTKpJvNuOWqc MI93vBfwjgQcgOKwzUzxBK4JKk7+YUdgbwGbQlaJUjjzCOFQQxMkPcoOXeTiUBRyXTEqQZEqErY5LqGn Ry9NQIJvWDQgCEQpRnTtMFDuIOPcARjyIGRhLLKdCM C9FERmHCCnSN9CHpLhECKyRgGqYFwvMXYxNKQazf7KSRZmOMGhXUZ2XyPdEQWyGEYvNZyoFULuFBTeIh V7XJVxNDVkDP5JUvNvIJKtJRG3DDawBUCdTQVole6QCOOiWYOuBln3AhEgWPQuMCSlNKufMKHdDVHoZU i0JMXtARGuLH5CZtKdAZHmVBIaLlSkYWDdZFCgwk1N KURtMWKcMFMnJIGnCEZuEQMfUZswVGJoKMM6QCI7PUQcEOHhFB0TCmZoNIKgMVT4SMQbURVbSNJglw6G DNYhCOJmVhy2OKKoNAWoEEVjHNkbAVHbWIK7XgR7RXJaFXLvEC7TUlMwXDHvVEa6JmCoISJxHLKhaw5O KMHnHKYgLjgqIINdZIIsBTAyRWjbBBNtSCG5HBLxUY PvDFKuVZ4UBaGxAOHoNDt3HGDxMMUdPQAgmr9KYHMrTYBmKYGtHOEaIGTwDJGmACggXZLpUGL9CMw9QW AzQIUpYM4TXlCaDRMiTpWaKckcUSOqJMEuuz0CJMFqJNOcZLNqPjLoUYZpRFRzSOxyRVWfAXLpCVu7XU DwNBXlMN8EBwUbUVFoArT2AJroIUDvOSKtok3VJMAv HWInLuY5RcFhSOFsTTGjVDsxEHBwXQPyWJA4ALHfCSKxFV5OAoTaXYEqOlC8DrOkUBDlOLZiwy9JfXUz vLettn1BWItCEy1JdAwtSVO7ORquIi3tvXUvVdHnLEBGNa5OnaVxTXQkLXUMNEthXJDlUKC0GUNgJPQ2 W3DcFuJgAcijBICcQpCfQFMvFlTqGFdrIbW6FkKmAa R0EPC8DhEsXMR1R4B8LCQiUuGwSgDpFuUhCsB+SN4yFWk+Bm1Hw1ZlpjG2quNgEEjoSijfKk6GDYZXG4 YNCg== ID Date Data Source [id number] 05/01/2021 06:29:00 PM EDT [facility] Name Value Range Interpretation Code Description Data Arabella rce(s) Supporting Document(s) SARS coronavirus 2 RNA [Presence] in Res piratory specimen by MELINDA with probe detection NEGATIVE [facility] This lab was ordered by [facility] a nd reported by [facility]. ID Date Data Source [id number] 04/28/2021 06:15:43 PM EDT [facility] Name Value Range Interpretation Code Description Data Arabella rce(s) Supporting Document(s) Nursing Note [facility] NQXFVx5oUqHTBnSs64/IFAjdKLJmo5MiWQejVBx7AHmaSWTtI1VqFON6fD8yTGZ8YFwJMxNmIjLnUTCu lbm [file] DjlDhsVFWSRbQaZYa8CGvpFRLHYz5H ID Date Data Source [id number] 04/28/2021 04:30:15 PM EDT [facility] Name Value Range Interpretation Code Description Data Arabella rce(s) Supporting Document(s) Discharge Summary [facility] CJWZCx9tGoEIQnVl71/PHLzuXNRkl8JrKAemWSn6OQlrMRGsP2KzXVI2sZ4cPSM7NQwPRlSbRfBuUCIx lbm [file] ez+XKyna+W/Yrr976+V2+mk/svp research & ebusiness operations+pdfxMnrIXbuyUTG [file] AgICAvRjMgMjUgMCBSDQogICAgICAvRjQgMjggMCBS EFrfWEVlIGNkSoZxSzOuVOJAVe1NBuFbDKIeHB9ntpKyhHD3QBB+Cl9WYAChCE6KzSRFF1CbgVXeOEcy I5XPOM4LIYX1JF5IbGFpBW0SyCZLY2XioGKtFu1rAGIcg4VzYu1wR3MCBBCJNYJtXDtcMPkeQZPtWXr3 L8B0ABEkV1IYX360nLZjrSc8Rt3nU3EAOAjONjScWY qeAKzwUUAdMMz8Z8S3PUGlA2KLP8JoNrCaejYbC6I+AaUoPCZLNJ6MRQMLMRg0O2L4wVBhN9M6dWoGdY T5RI2TIA4YiBQnqMIgf79+VcURFjIqBQFlL9ZMEWNDKbZrJVrjDQrxBGXlLDy1X3K7PHDcW0NRU6wqG8 h0ZW4+QpNFTqBiYAHsZh4WLfFtIi3NFcOlBI2ydp8G LpIwNQGcSgcEMug1W6hctam6uTNpNjE9W3M0AxW9bGXyEY9VQ6O6zVZrUAG6SNAhjCH+Io3Jq5FdKFHl EPi3W2vsYVLkQGYaNzYkkQ45G++9ztxbdSL7G9s4AHSNlIRepPaSecJpS9iLAQA4t8W5ILk/Lz1YACX3 lFr2nKBrVRTxXNn6fZ7pdVd2TjStZM82QIPaAUdexT 3jJhh0C5Reu7TmDd1lXl8pbWLuTr3IVqAfBNJ1aeJrTpXJPsO4xWjcikpxYDW2G8y5fDS0Nt61k1jzgj Owr7GxMtT8VEvaKSFpUqPgbfCqMMA0ysIxqF7rxjHvCr9EOCCbFKcrooTuKwPPNa1KGcBqWS07KeprcL 1ldGE+DQogICAgICAgICAgICAgICAgICAgICAgICAg ICAgICAgICAgICAgICAgICAgICAgICAgICAgICAgICAgICAgICAgICAgICAgICAgICAgICAgICAgICAg ICAgICAgICAgICAgICAgDQogICAgICAgICAgICAgICAgICAgICAgICAgICAgICAgICAgICAgICAgICAg ICAgICAgICAgICAgICAgICAgICAgICAgICAgICAgIC AgICAgICAgICAgICAgICAgICAgICAgICAgDQogICAgICAgICAgICAgICAgICAgICAgICAgICAgICAgIC AgICAgICAgICAgICAgICAgICAgICAgICAgICAgICAgICAgICAgICAgICAgICAgICAgICAgICAgICAgIC AgICAgICAgDQogICAgICAgICAgICAgICAgICAgICAg ICAgICAgICAgICAgICAgICAgICAgICAgICAgICAgICAgICAgICAgICAgICAgICAgICAgICAgICAgICAg ICAgICAgICAgICAgICAgICAgDQogICAgICAgICAgICAgICAgICAgICAgICAgICAgICAgICAgICAgICAg ICAgICAgICAgICAgICAgICAgICAgICAgICAgICAgIC AgICAgICAgICAgICAgICAgICAgICAgICAgICAgDQogICAgICAgICAgICAgICAgICAgICAgICAgICAgIC AgICAgICAgICAgICAgICAgICAgICAgICAgICAgICAgICAgICAgICAgICAgICAgICAgICAgICAgICAgIC AgICAgICAgICAgDQogICAgICAgICAgICAgICAgICAg ICAgICAgICAgICAgICAgICAgICAgICAgICAgICAgICAgICAgICAgICAgICAgICAgICAgICAgICAgICAg ICAgICAgICAgICAgICAgICAgICAgDQogICAgICAgICAgICAgICAgICAgICAgICAgICAgICAgICAgICAg ICAgICAgICAgICAgICAgICAgICAgICAgICAgICAgIC AgICAgICAgICAgICAgICAgICAgICAgICAgICAgICAgDQogICAgICAgICAgICAgICAgICAgICAgICAgIC AgICAgICAgICAgICAgICAgICAgICAgICAgICAgICAgICAgICAgICAgICAgICAgICAgICAgICAgICAgIC AgICAgICAgICAgICAgDQogICAgICAgICAgICAgICAg ICAgICAgICAgICAgICAgICAgICAgICAgICAgICAgICAgICAgICAgICAgICAgICAgICAgICAgICAgICAg ABIdDGZvLJFqVJQcYTJgKUSsYLZpDYBvYPo9K1bqRIBhDFJmUA7oMMr2Lc7+LWmISqUuJJP0ctCpcN5P OJ8el7KyYCiyVIKrt5SjOYq3UU9BVLWxEYukZC4CZT cbij4JSSBlMTAauXKHu5elCtEoVFN9PCBgKvzfPD1NYCTqA0smdyFdOOEkCXVDBNouOKPUYBuhNNRCSU AdYHSlEuMdQeVxULMpDA1GBXIjQ697fiOuRX4ZVg8IMbVfKY7thb5ZHkWxZGLhKagROqr0OQwmBE6YqA OapENbOBPgATESLlYtX8ruu1RbWwJiNTXHTVkwQN4N n1DomEXqHWa+Ez7JWI8yy0QsUAhdCGGsNP6hzj2OXVwKHuMaL6CqqIaiRIIsi6NtYPZuQGWTfY9wFYP0 BMZ8IIGqjeObG8dnhv60QFHTQCBjjPZ9WvUfXkAsGvOpEFR1QdjvNC5pPMvxRH0FWXV1JKcyCJShKYRf O3zJUpDwOBpjDFIzmQivNW6PJhHfH2YauwChoRSbKC AwIFINCj4+IFafqqHsXmiFEpW4UCQqa5OlYEk1QO7BPCDhXPyjEK5JJKQthF9sGIokZT7WFlJaRqUbIK AELwZrZ07saJQiMNs1D7KdJpHpWETwEmljMRGjFJziDcEcPUYsYiZvTOpwTM1+ID4+JCmnDH4OPDirjb EcBXRtXi4VUAZrYMObOT7xWKKsADNkF7A6zPoqTCGK TsVdC6jiyqxcZR8eWSFmK330fHhtfvAcBYW5WIXuAj6OOJOfSZB9CKMnzZVqIhIxSSIMKRwtDF6EdTGx BKP2yD5eJAtgZVQkUQVfJ3qYEwEsrNqlPH23cQaitdJtaXGgYUf+Ev6XMG4kl1FdICv8gnHpLSkdQKI8 FYebUIWzTLMeWQRuEJN3CBS5RWEOKdUtZFMvUIDaQQ mgMLCmATCael6JMLJaMQWiNPY7IkFcNRPhPEQtMHaxZOLhLLBjUMD3THCzCTIrFC4PZpPhDWKyTWIqAQ zrIBPaMGZqee5QGKMnYZKdSoP5OXOwOBChRJDxUTudPIMgDYVfNnacJKZjWZAnYK3YFlUzFMVmKWE7VG DwBSPpOMJuna0ZRVFwCVYwVWugBrTyXWSjWERoGLlk YHLvDIA7PaIlVFRnWCVqXP3NSvDhQGPhAYr2LnTrNYLnPNDbqb9IZCSaRBBwBLk5DEOdMGAfJJEaXVlp ULSpDLNbXNevRWPoFNWbHZ4BAwOaLAHjZPJwAmPjUSWtFDWevm1HWHKuTPFoUjCpNlVuRVUeZQLxWMfs CQTdCUW1RLl1DQHvWVYzJB1KXwTcWPJuWLJtQSkgOU LdMVNumz8YOJQxEPYuUQE9UNJqMDFvZKGvSFneCILkSPG3HPR8AKLhSWFrPH7YVbZcTUZmTDC8DHHoDF LeASHnnw5XTMIuIJNfXUevESGlQETdGBQwGRpzPSWrGST8YHpgNORjGNEkZK0EZvSvPUIaZCrnWTFsBO FkHEMglb5RZFZvTBAmKqN5DHOrESLtFOXqBKrjBGHq TTB8BdF6WIAqKACgXR0STaKyELZyEXu0WzGuLEBaKSYpxd5SXLRfOKMlXRTbRKOfGQXiJLMhKHviVOKq IFE5GEfkQLGlADHvOW9ADlJaUDLeCTs1QCInAFNxRWCfwy3FVNNdEEBpPZl8XBHyPWMcEQOrEHxrYNOk JFUtQDW9GWQxOPXoDC8HJeUuQULuNaKzKDXjIUChJK Zfjq3NJDLuNWBjGRMtCNTtVYTbWNBsRErzKWAqUJDiJQF6BVLsMSDfAH8UUqUrDNAyFvHzUXFxTLMbRZ Hjhh9JGINlUXNaMtD4JHKuICWjVWYlWKziCKEwSNGdFOKwUBPqYMQsQK7RAsPxNEizEPSQWap8ABaxO7 h3CAXiWv4QT2Dvs8VtJmHvGPQVULqcIK5ilmYeNCUp Ft7GD6hKQukdWUYvXtpgYkWfPwM1QtQvVJM7LZszHMzrXCA7QTLzLd1rWZUrQjAyBBImCPYsApLyKoY9 THOnOWBzY8J9CVp8MNDuZqJwWF0JWe2QPhM7SAP3bZOoNh5JYvF4JISZLwHcUD0ORLs= ID Date Data Source [id number] 04/28/2021 03:03:23 PM EDT [facility] Name Value Range Interpretation Code Description Data Arabella rce(s) Supporting Document(s) Care Plan [facility] AXKTUk1fZoJNSjMk74/GTZulKXIdd8VnICmuIXp4IZbnHBYbA5PbQLF7hP8aYSD7DPaOLoSwFfKyYSSe lbm [file] DQo= ID Date Data Source [id number] 04/28/2021 12:53:00 PM EDT [facility] Name Value Range Interpretation Code Description Data Arabella rce(s) Supporting Document(s) Glucose, Fingerstick 131 mg/dl 70-110 Above high normal [facility] The above 1 analytes were performed by [facility] [id number], ,[place] [address] ID Date Data Source [id number] 04/28/2021 11:25:13 AM EDT [facility] Name Value Range Interpretation Code Description Data Arabella rce(s) Supporting Document(s) Nursing Note [facility] MIENTy2zRyFCPcNe88/TZWqkJFMcd1TjVZmsPMs5OIfqNVIaN9QcNWY3gC6jANZ3PCwHEjReOzIhZPXj lbm RqPhlFTlMsKBQwXarLHnWdFEqgPugwbBFbGI6SfOW9LZWkQ09kUKHxRUXlC2TpSOvpLl1+UGzxWWE9mj AbrP5QKUDWUKvHEbVGxu/U/hWZWwWJ7n9eUDKcWFWHDUMFwYc6LLRSDoQgZKslo5122s2mSF8TSFHFfj QdeWY+zzeHvQHwfz+hpSVjDPLP+lFbATdjePsGKrVE [file] GCQIBkXmZFNaXMftFTKGEy6E ID Date Data Source [id number] 04/28/2021 06:07:30 AM EDT [facility] Name Value Range Interpretation Code Description Data Arabella rce(s) Supporting Document(s) Nursing Note [facility] BZPYTa4rJvDQJyNk38/BERknRHHjh9RwZZuoEMv8LKbvZRMuR3QwRVP2eG4qSMX2CJdGEgTkFeNyJKIg lbm [file] TsHKXaBLXqPVn9BQWoQqGdPCF1FqNnXp7kYSBBMe5+KPkzvSLuqRgtFBGRJjSjQNH7LPvoJMGJUx8M ID Date Data Source [id number] 04/28/2021 05:35:00 AM EDT [facility] Name Value Range Interpretation Code Description Data Arabella rce(s) Supporting Document(s) Glucose, Fingerstick 72 mg/dl 70-110 Normal (applies to non-num madiha results) [facility] The above 1 analytes [facility] [id number], ,[place] [address] ID Date Data Source [id number] 04/28/2021 05:43:00 AM EDT [facility] Name Value Range Interpretation Code Description Data Arabella rce(s) Supporting Document(s) AST 126 IU/L 15-37 Above high normal [facility] Sulfasalazine and sulfapyridine have the potential to falsely depressAspartate Aminotransferase results. Baseline values before medication administration are recommended. ALT 193 IU/L 13-56 Above high normal [facility] Sulfasalazine and sulfapyridine have the potential to falsely depressAlanine Aminotransferase results. Baseline values before medication administration are recommended. Alkaline Phosphatase 172 mIU/ml 50-136 Above high normal [facility] Total Bilirubin 1.30 mg/dl 0.20-1.00 Above high normal [facility] Blood Urea Nitrogen 7 mg/dl 7-18 Normal (applies to non-nume ny results) [facility] Creatinine 0.75 mg/dl 0.51-0.95 Normal (applies to non-numeric resul ts) [facility] N-Acetylcysteine (NAC) and Metamizole em ve the potential to falselydepress Creatinine results. Baseline values before medication adminstration are recommended. Patients undergoing treatment with phenindione will have falselydepressed results. Patients on phenindione therapy should be tested with an alternativeCREA method.Toxic levels of acetaminophen may lead to falsely depressed results forpatient samples. Glomerular Filtration Rate 86.00 mL/min/1.73m2 [facility] GFR Reference Ranges:Normal Function or Mild [...] of Health and the National KidneyFoundation. The [place] method used in calculating this result is traceable to IDAL standards. Glucose 77 mg/dl 70-110 Normal (applies to non-numeric resul ts) [facility] Sulfasalazine has the potential to false ly depress Glucose results. Sulfapyridine has the potential to falsely elevate Glucose results. Baseline values before medication administration are recommended. Calcium 8.2 mg/dl 8.5-10.1 Below low normal [facility] Total Protein 6.5 g/dl 6.4-8.2 Normal (applies to non-numeric re sults) [facility] Albumin 2.9 g/dl 3.4-5.0 Below low normal [facility] Sodium 135 mEq/L 136-145 Below low normal [facility] Potassium 3.6 mEq/L 3.5-5.1 Normal (applies to non-numeric resul ts) [facility] Chloride 108.0 mEq/L 98.0-107.0 Above high normal [facility] Anion Gap 8.7 [facility] Carbon Dioxide 21.9 mMol/L 21.0-32.0 Normal (applies to non-numeric results) [facility] The above 16 analytes were performed by [facility] [id number], ,[place] [address] ID Date Data Source [id number] 04/28/2021 04:59:00 AM EDT [facility] Name Value Range Interpretation Code Description Data Arabella rce(s) Supporting Document(s) WBC 5.64 x1000/ul 4.80-10.00 Normal (applies to non-numeric re sults) [facility] RBC 3.80 x1Mil/ul 4.20-5.40 Below low normal [facility] Hemoglobin 9.9 g/dl 12.0-16.0 Below low normal [facility] Hematocrit 31.6 % 37.0-47.0 Below low normal [facility] MCV 83.2 fL 81.0-99.0 Normal (applies to non-numeric resul ts) [facility] MCH 26.1 pg 27.0-31.0 Below low normal [facility] MCHC 31.3 g/dl 32.2-37.0 Below low normal [facility] RDW 14.4 % 11.5-14.5 Normal (applies to non-numeric resul ts) [facility] Platelet Count 253 x1000/ul 130-400 Normal (applies to non-numeric results) [facility] MPV 10.5 fL 9.4-12.4 Normal (applies to non-numeric resul ts) [facility] Neutrophils 56.6 % 40.0-74.0 Normal (applies to non-numeric resu lts) [facility] Lymphocytes 32.1 % 19.0-48.0 Normal (applies to non-numeric resu lts) [facility] Monocytes 7.6 % 3.4-9.0 Normal (applies to non-numeric resul ts) [facility] Eosinophils 3.0 % 0.0-7.0 Normal (applies to non-numeric resu lts) [facility] Basophils 0.5 % 0.0-2.0 Normal (applies to non-numeric resul ts) [facility] Immature Granulocytes 0.2 % 0.0-0.5 Normal (applies to non-nu meric results) [facility] Nucleated RBCs 0.00 % 0.00-0.20 Normal (applies to non-numeric r esults) [facility] Abs. Neutrophils 3.19 x1000/ul 1.92-8.31 Normal (applies to non-numeric results) [facility] Abs. Lymphocyte 1.81 x1000/ul 1.20-3.70 Normal (applies to non-n umeric results) [facility] Abs. Monocytes 0.43 x1000/ul 0.14-0.97 Normal (applies to non-nu meric results) [facility] Abs. Eosinophils 0.17 x1000/ul 0.00-0.76 Normal (applie s to non-numeric results) [facility] Abs. Basophils 0.03 x1000/ul 0.00-0.22 Normal (applies to non-n umeric results) [facility] Abs. Immature Gran. 0.01 x1000/ul 0.00-0.02 Normal (appl ies to non-numeric results) [facility] Abs. 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 [file] hJT+zwSvrBDo+gW6GK9nt6gz0esLb8fe7FEtB65X/carlos a/9MzMCJkidByf7nMbpDcBLKnygrTcO4KwD27B [file] S3CGFKJaJkPZ6IKTz= ID Date Data Source [id number] 04/28/2021 12:07:00 AM EDT [facility] Name Value Range Interpretation Code Description Data Arabella rce(s) Supporting Document(s) Glucose, Fingerstick 80 mg/dl 70-110 Normal (applies to non-num madiha results) [facility] The above 1 analytes were performed by [facility] [id number], ,[place] [address] ID Date Data Source [id number] 04/27/2021 07:16:45 PM EDT [facility] Name Value Range Interpretation Code Description Data Arabella rce(s) Supporting Document(s) Nursing Note [facility] HYNUVx2eEpHKUcMe07/IYWnhIBJas8YeXPjfLZh5DZotOJMuE8NlPMT0lQ6wPZB3KKfRIuScWpGcLGA1 lbm [file] E5xJFsQt5HObVgXKTDOyXlSZ3RTWw= ID Date Data Source [id number] 04/27/2021 05:52:00 PM EDT [facility] Name Value Range Interpretation Code Description Data Arabella rce(s) Supporting Document(s) Glucose, Fingerstick 81 mg/dl 70-110 Normal (applies to non-num madiha results) [facility] The above 1 analytes were performed by [facility] [id number], ,[place] [address] ID Date Data Source [id number] 04/27/2021 03:06:47 PM EDT [facility] Name Value Range Interpretation Code Description Data Arabella rce(s) Supporting Document(s) Progress Notes [facility] UIEKZk4aAxMRZaKf05/LJTnlMKKdq5UxYOhjWOm1ETaoRTEdU5QbSEU1xV5cHZX9AOkDDmZvWpJrDZG0 lbm [file] gaJROCQf6Z ID Date Data Source [id number] 04/27/2021 02:37:54 PM EDT [facility] Name Value Range Interpretation Code Description Data Arabella rce(s) Supporting Document(s) Progress Notes [facility] RSJCAj6vRjFFAtRj64/NAPzoUEGhq1ZiFMpmZDr9TUbhVMYjN1CxSSC3vW0rNKD1BQqWBdFvQyJkLFC9 lbm [file] GSxluVFycLyuVQRRJfWuGuw2XBxxMZXEAa3H ID Date Data Source [id number] 04/27/2021 02:46:00 PM EDT [facility] Name Value Range Interpretation Code Description Data Arabella rce(s) Supporting Document(s) Ferritin 17.7 ng/ml 3.0-388.0 Normal (applies to non-numeric resul ts) [facility] The above 1 analytes were performed by [facility] [id number] [facility], ,[place] [address] ID Date Data Source [id number] 04/27/2021 02:46:00 PM EDT [facility] Name Value Range Interpretation Code Description Data Arabella rce(s) Supporting Document(s) Iron Saturation 42 [facility] Iron 186 ug/dl 50-170 Above high normal [facility] Patients treated with metal-binding drug s (e.g deferoxamine) may havedepressed iron values. Total Iron-Binding Capacity 440 ug/dl 250-450 Norm al (applies to non-numeric results) [facility] The above 3 analytes were performed by [facility] [id number] [facility], ,[place] [address] ID Date Data Source [id number] 04/27/2021 02:46:00 PM EDT [facility] Name Value Range Interpretation Code Description Data Arabella rce(s) Supporting Document(s) AST 350 IU/L 15-37 Above high normal [facility] Sulfasalazine and sulfapyridine have the potential to falsely depressAspartate Aminotransferase results. Baseline values before medication administration are recommended. ALT 301 IU/L 13-56 Above high normal [facility] Sulfasalazine and sulfapyridine have the potential to falsely depressAlanine Aminotransferase results. Baseline values before medication administration are recommended. Alkaline Phosphatase 227 mIU/ml 50-136 Above high normal [facility] Total Bilirubin 1.50 mg/dl 0.20-1.00 Above high normal [facility] Blood Urea Nitrogen 8 mg/dl 7-18 Normal (applies to non-nume [place] results) [facility] Creatinine 0.70 mg/dl 0.51-0.95 Normal (applies to non-numeric resul ts) [facility] N-Acetylcysteine (NAC) and Metamizole em ve the potential to falselydepress Creatinine results. Baseline values before medication adminstration are recommended. Patients undergoing treatment with phenindione will have falselydepressed results. Patients on phenindione therapy should be tested with an alternativeCREA method.Toxic levels of acetaminophen may lead to falsely depressed results forpatient samples. Glomerular Filtration Rate >90.00 mL/min/1.73m2 [facility] GFR Reference Ranges:Normal Function or Mild [...] of Health and the National KidneyFoundation. The [place] method used in calculating this result is traceable to IDMS standards. Glucose 86 mg/dl 70-110 Normal (applies to non-numeric resul ts) [facility] Sulfasalazine has the potential to false ly depress Glucose results. Sulfapyridine has the potential to falsely elevate Glucose results. Baseline values before medication administration are recommended. Calcium 8.6 mg/dl 8.5-10.1 Normal (applies to non-numeric resul ts) [facility] Total Protein 7.3 g/dl 6.4-8.2 Normal (applies to non-numeric re sults) [facility] Albumin 3.5 g/dl 3.4-5.0 Normal (applies to non-numeric resul ts) [facility] Sodium 136 mEq/L 136-145 Normal (applies to non-numeric resul ts) [facility] Potassium 4.5 mEq/L 3.5-5.1 Normal (applies to non-numeric resul ts) [facility] Chloride 108.0 mEq/L 98.0-107.0 Above high normal [facility] Anion Gap 12.0 [facility] Carbon Dioxide 20.5 mMol/L 21.0-32.0 Below low normal Health system The above 16 analytes were performed by [facility] [id number], ,[place] [address] ID Date Data Source [id number] 04/27/2021 12:43:26 PM EDT [facility] Name Value Range Interpretation Code Description Data Arabella rce(s) Supporting Document(s) Consults [facility] NMIDYp4rNxOVSyCr82/QGOhgTJVwv7WsEXdjUFz7TIhvVBBgH2FcQKI4mN4dXRU8FBrXFoMiVtCdTOJ8 m [file] AgICAgICAgICAgICAgICAgICAgICAgICAgICAgICAg ICAgICAgICAgICAgICAgICAgICAgICANCiAgICAgICAgICAgICAgICAgICAgICAgICAgICAgICAgICAg ICAgICAgICAgICAgICAgICAgICAgICAgICAgICAgICAgICAgICAgICAgICAgICAgICAgICAgICAgICAg ICAgICANCiAgICAgICAgICAgICAgICAgICAgICAgIC AgICAgICAgICAgICAgICAgICAgICAgICAgICAgICAgICAgICAgICAgICAgICAgICAgICAgICAgICAgIC AgICAgICAgICAgICAgICANCiAgICAgICAgICAgICAgICAgICAgICAgICAgICAgICAgICAgICAgICAgIC AgICAgICAgICAgICAgICAgICAgICAgICAgICAgICAg ICAgICAgICAgICAgICAgICAgICAgICAgICANCiAgICAgICAgICAgICAgICAgICAgICAgICAgICAgICAg ICAgICAgICAgICAgICAgICAgICAgICAgICAgICAgICAgICAgICAgICAgICAgICAgICAgICAgICAgICAg ICAgICAgICANCiAgICAgICAgICAgICAgICAgICAgIC AgICAgICAgICAgICAgICAgICAgICAgICAgICAgICAgICAgICAgICAgICAgICAgICAgICAgICAgICAgIC AgICAgICAgICAgICAgICAgICANCiAgICAgICAgICAgICAgICAgICAgICAgICAgICAgICAgICAgICAgIC AgICAgICAgICAgICAgICAgICAgICAgICAgICAgICAg ICAgICAgICAgICAgICAgICAgICAgICAgICAgICANCiAgICAgICAgICAgICAgICAgICAgICAgICAgICAg ICAgICAgICAgICAgICAgICAgICAgICAgICAgICAgICAgICAgICAgICAgICAgICAgICAgICAgICAgICAg ICAgICAgICAgICANCiAgICAgICAgICAgICAgICAgIC AgICAgICAgICAgICAgICAgICAgICAgICAgICAgICAgICAgICAgICAgICAgICAgICAgICAgICAgICAgIC AgICAgICAgICAgICAgICAgICAgICANCiAgICAgICAgICAgICAgICAgICAgICAgICAgICAgICAgICAgIC AgICAgICAgICAgICAgICAgICAgICAgICAgICAgICAg ICAgICAgICAgICAgICAgICAgICAgICAgICAgICAgICANCjw/tPCfB2hwbDCysmE5A4inGr7LTj9JNV6l w8AhVNRcKVrfngTiSrmSCfHkLZDaPtyIIvf1PPkrHA5PcMWkL9RrK5XrZUyjXI9OGUQuKPFvdRZqWGVm PXDnItW1GGCbCJjiKE6HuJKaYYviCABuXQIrZjPzOX EvXXMcDVByFWMlHOQPVQPqJRBgCiSjOVMeVDHpPLvqGOQBZK4PMwTeG3RfkT26XBdHMc3+DQplbmRvYm hTPaYaHHCna4YiSPh2NU2VCWXjVterq1GnQJSbLJQWDUuiGW2CQZP3SPNeCESiLg3KTULeR836sbWgNT 0SAr9CWiSzRX5qyx5WDBCgPVEgWgcPNvc8MFkkMJ5H aLBmJYmNe80okQs4lmSywLSUeCkgcFKxJNBbC9NhSgBtBHIITSEmtUF1GjI8YbXzBbXxRMZ2EGdoDR3x KPayDF0FATO0RYvfEZTuBUMsS3gOFbOnBFtrLTPvjEndLB3SCuGbQ7CwybNejZN4DWAnSCRURh4+DQpl wzPqYpfTXaRmHBHnl5ViNXj8WM9QNHJpMYodGH2PBI LnkM7dGBzzKF7UKgRhKYVvBHZKSyCpF05yuMNdNAf9R7ZxEhGzMQTfJpeqAFWsWJpeItXxELCtGwPtJA ogID4+ID4+XHlfOZ7KCHwsusSmCLOjCd3QXZSsITUrIX4qDDXmYGWeZ9Z1rKvlSFWNXpHcS5jbrbhqYR 9fWBHeF419cVmlscNfEYHsBJLvJd3GTFCtJIY2JYOt cJUxDgpzMVLORGtcKX9CjNYjSRM8xJ7cIOirFODhVQMjU1uGYpUfjDxhVH55zSaknoAexIXqHKu+Pg0K SE7oy7ZnCBl9kpOqWLmvMWEgJKtmQRBrSLYgIMNkIAK4GYL9XQQXMwTrYPUyULAfAWmmSJMtFVGxhz4M IUQxQGBeAuZ2GgQrFSPbQRNbDGxoASMwQBZ3AMKvNN JpNXLwYR1THrZfNSDwALTiJJipJLFyGKMgnb8IQXMvRUFvOpYrAZBvTYBeRTCmRHfzRUWaTJByKFO5TN EwTGIuQF8NVzLcEJVbHPCaBXykFQVbETXhbl9GJHHfTDAfWlKbIpFrWDZpCRVtMCfuMAXkCQZ3ZrVfYG MeVREeJF4ZEfXdWEAqQUy9ANSyIWUoAZUrri2JQSUn URCeYOD3InYqCRAgNHWbUQrjHRLzVNAcUUL8PDTcLWFxOV2BFbYlLXVyXBUxKcQsIQDqQLRuaa5DSLLc BPOxBfG6PBUaXALiJRFhJDasOAZjRMC4BLe0DBBzXYDnQK0GHmKcSWKgNRW9HUClXWUtTOUwqi5OBCYi BSBpVGlnMJUmALRoYUIhMKjtALWjMME1XAG0CRXbRZ ZsBN3PJeLvRISyAHawJBXbBSUnVTDfyn3AQZWlPKUeOrP8XtMsKDUeYCEsLOaxAXJqLAF6WCy7LDTuHS BoZI2QOnGgIRScKQh8MmOmVLRnJIHuhp4PJUBcWUPbOZJxPGIzMLEpXBGsAPwxDZMnKLE6DDB2OMPyCN YuEC1BQtZoMZUoITz2EeBkVNOvYXOxhr3QZCGxTSUu LOv4NHVpVZHoHYSdUFotESQdDTNzDEchJHCbXRPlUC9LHiXqCIEsHaFkKegqVRCmZTQqhd4VVMBwVOCt ELFiVOCrIYYuRSFeXUpmATLkNKLmNWU4LAFyOZDwNT7NGyAxAPWuQcX7EpNmXFHkJRZzbn6GBJNjKSXm YSV6IRGdIAQaFPUlQLqjCWVuWJC3RkR9YOPjGRScKR 3KIyIqLGEsXjJ4PNxxPRRgBYGglv1OMJUyRNTdCLj2VyKqNWHeWDVuZMkxDJKvRWN9Buz3DLMjPXVqWE 8QTcHvVLWbGyM0UEYfZREeWSAmts3AJSLrTESiSsY3INPzRGJcWOOuRZdxDVEeJVJ0LNSjJJYrYVZyQL 7LMrHcXUUxDih9LJihCAUuFTHfcb0APFLtYTBjNOH1 LTGnAPBlIRMyBCrhPNFfFQU1ScR5TKBxYQKzOI0MTjXuWSbhKSCDNqe1IRueM3v3JWY8Ve6SD3Xzz1Qj XXUvCQEPYXlzGG2zdgFoLSZiSr4EV5eSXcvfLkT6THKtRWffAAV0BDQdWzI4WPGpXYBrMderSqqpEE2b ZDRxPrUyQGKlTULbTeL5VTBwNXM0PCEgCvIdKJZ3El HtJmHrKZ8XQe2WYmF2RYD5jLCbPw3UJkw5QLaIVqLkAD4HTCp= ID Date Data Source [id number] 04/27/2021 12:30:00 PM EDT [facility] Name Value Range Interpretation Code Description Data Arabella rce(s) Supporting Document(s) Amphetamines, Urine Negative Negative Normal (applies to non-nume ny results) [facility] Barbituates, Urine Negative Negative Normal (applies to non-numer ic results) [facility] Benzodiazepines, Urine Negative Negative Normal (a pplies to non-numeric results) [facility] Cannabanoids, Urine Positive Negative Abnormal (applies to non-numeric results) [facility] Cocaine, Urine Negative Negative Normal (applies to non-numeric r esults) [facility] Opiates, Urine Positive Negative Abnormal (applies to non-numeric results) [facility] PCP, Urine Negative Negative Normal (applies to non-numeric resul ts) [facility] Methadone, Urine Negative Negative Normal (applies to non-numeric results) [facility] DrugMinimum Detection Threshold (Conc.)A [id number] ng/mLBarbiturates 200 ng/mLBenzodiazepines 200 ng/mLCannabinoids 50 ng/mLCocaine Metabolites 300 ng/mLOpiates 300 ng/mLPhencyclidine (PCP) 25 ng/mLMethadone 300 ng/mLOxycodone 100 ng/mLNOTE: Phentermine may interfere with the amphetamine analysis.NOTE: This urine drug analysis is a screening procedure. Presumptivepositive results are unconfirmed.[facility] recommend submitting positive specimens to areference laboratory for confirmation. Oxycodone, Urine Negative Negative Normal (applies to non-numeric results) [facility] The above 9 analytes were performed by [facility] [id number], ,[place] [address] ID Date Data Source [id number] 04/27/2021 11:48:00 AM EDT [facility] Name Value Range Interpretation Code Description Data Arabella rce(s) Supporting Document(s) Glucose, Fingerstick 78 mg/dl 70-110 Normal (applies to non-num madiha results) [facility] The above 1 analytes were performed by [facility] [id number], ,[place] [address] ID Date Data Source [id number] 04/27/2021 08:10:31 AM EDT [facility] Name Value Range Interpretation Code Description Data Arabella rce(s) Supporting Document(s) Care Plan [facility] IEBKSj9vFoQQInMf37/PFIxlSPUvp9TbBXluMQh8RQpuSGItN4IcGNM4eP6xJTV3AIcXGhWjNyIiYLY4 m BqTvfZDbThEMPqItyXHrHmEDfsTopvnIDxZB2DkBF6ZPDqJ17cVCDeVQJrU6TcCUm8Bj5+BSxcVLZ5do FinN0DBLInTJrp2sYZrx/Yf+YhNgTUvpT7pbKDye4POat9MEJIo4jvS/VUR2z5YqucHynk54Zf4BOuMk mYm2PFYp4GNdRbZ9U+3UFLhoQQyP+Fu7In5W/g9Suo gDH9FCkxRSQ9dXGWaB6bHiD935XSMyWYvmf4XZgg7ZKTCFPUYCtPH0TDgiI2JLhKUZdBPZiA3L8P4AUE Dk7LKWn3VO6X8xugFCrXtowfde4R49BbqmNT1JZrwHzmSxFljIPkGZmIXWqttLnQoEgYyQYud9HsoF9n a7HEVrV2ginTio0ZlpZRsSZua5L1oJrYT45JKtEGYc w9W0sKJIohb5kaqZfB1AH7Z/ZUv5YFvOgGG2mYPLGuBjHFDc0rd4fJADlOfXyRRBIR44Ua5EcFoWp1Kb 6H6nW7BnpUju8YCITdvdwkxTcQE/krOV1Z5YkQwDmxWHUxVeX7i8rB1evmsCGrStOS/0qoh5wo5XdG17 ql+PzWLDcuxisndbOurI/79cr9aZa2fFqER8/dmlsr VX8WqbgCNNDis0CrswcZ9ocTAkrPovssADpmAs6Tx0V17LtkSH9dJ2+GXsY0EHRTk1lRKmS4lFVRGSYI T6moJPG6zJ8iwRnPDL1F9SsnENlaWOIF2Rosh8ipZ9EtxWgzFJuBxbGysc8iO/Madonna/E74a67pAev5wb4 [file] DSBgAmMqv5PBfuIPHDQf7E ID Date Data Source [id number] 04/27/2021 06:03:19 AM EDT [facility] Name Value Range Interpretation Code Description Data Arabella rce(s) Supporting Document(s) Nursing Note [facility] GEJIGs0vSeLIWfXu06/HSZmqNPEiq2OhARuqYXq8NRmrZQNqL0GtCMG9mX3zJXX7NVvYIeVjJwKyBSJ9 lbm [file] k1VuRbXY3XLx5UIrT0KCU8kXBdZn3AQnKuQAMMPtGlVX1NGWa= ID Date Data Source [id number] 04/27/2021 05:24:00 AM EDT [facility] Name Value Range Interpretation Code Description Data Arabella rce(s) Supporting Document(s) Glucose, Fingerstick 88 mg/dl 70-110 Normal (applies to non-num madiha results) [facility] The above 1 analytes were performed by [facility] [id number], ,[place] [address] ID Date Data Source [id number] 04/27/2021 05:58:00 AM EDT [facility] Name Value Range Interpretation Code Description Data Arabella rce(s) Supporting Document(s) Blood Urea Nitrogen 9 mg/dl 7-18 Normal (applies to non-nume ny results) [facility] Creatinine 0.72 mg/dl 0.51-0.95 Normal (applies to non-numeric resul ts) [facility] N-Acetylcysteine (NAC) and Metamizole em ve the potential to falselydepress Creatinine results. Baseline values before medication adminstration are recommended. Patients undergoing treatment with phenindione will have falselydepressed results. Patients on phenindione therapy should be tested with an alternativeCREA method.Toxic levels of acetaminophen may lead to falsely depressed results forpatient samples. Glomerular Filtration Rate >90.00 mL/min/1.73m2 [facility] GFR Reference Ranges:Normal Function or Mild [...] of Health and the National KidneyFoundation. The [place] method used in calculating this result is traceable to IDAL standards. Glucose 80 mg/dl 70-110 Normal (applies to non-numeric resul ts) [facility] Sulfasalazine has the potential to false ly depress Glucose results. Sulfapyridine has the potential to falsely elevate Glucose results. Baseline values before medication administration are recommended. Calcium 8.1 mg/dl 8.5-10.1 Below low normal [facility] Sodium 137 mEq/L 136-145 Normal (applies to non-numeric resul ts) [facility] Potassium 3.8 mEq/L 3.5-5.1 Normal (applies to non-numeric resul ts) [facility] Chloride 109.0 mEq/L 98.0-107.0 Above high normal [facility] Anion Gap 11.1 [facility] Carbon Dioxide 20.7 mMol/L 21.0-32.0 Below low normal Health system The above 10 analytes were performed by [facility] [id number], ,[place] [address] ID Date Data Source [id number] 04/27/2021 05:35:00 AM EDT [facility] Name Value Range Interpretation Code Description Data Arabella rce(s) Supporting Document(s) WBC 8.06 x1000/ul 4.80-10.00 Normal (applies to non-numeric re sults) [facility] RBC 3.77 x1Mil/ul 4.20-5.40 Below low normal [facility] Hemoglobin 9.8 g/dl 12.0-16.0 Below low normal [facility] Hematocrit 31.6 % 37.0-47.0 Below low normal [facility] MCV 83.8 fL 81.0-99.0 Normal (applies to non-numeric resul ts) [facility] MCH 26.0 pg 27.0-31.0 Below low normal [facility] MCHC 31.0 g/dl 32.2-37.0 Below low normal [facility] RDW 14.4 % 11.5-14.5 Normal (applies to non-numeric resul ts) [facility] Platelet Count 233 x1000/ul 130-400 Normal (applies to non-numeric results) [facility] MPV 10.0 fL 9.4-12.4 Normal (applies to non-numeric resul ts) [facility] Neutrophils 68.6 % 40.0-74.0 Normal (applies to non-numeric resu lts) [facility] Lymphocytes 21.7 % 19.0-48.0 Normal (applies to non-numeric resu lts) [facility] Monocytes 6.8 % 3.4-9.0 Normal (applies to non-numeric resul ts) [facility] Eosinophils 1.9 % 0.0-7.0 Normal (applies to non-numeric resu lts) [facility] Basophils 0.6 % 0.0-2.0 Normal (applies to non-numeric resul ts) [facility] Immature Granulocytes 0.4 % 0.0-0.5 Normal (applies to non-nu meric results) [facility] Nucleated RBCs 0.00 % 0.00-0.20 Normal (applies to non-numeric r esults) [facility] Abs. Neutrophils 5.53 x1000/ul 1.92-8.31 Normal (applies to non-numeric results) [facility] Abs. Lymphocyte 1.75 x1000/ul 1.20-3.70 Normal (applies to non-n umeric results) [facility] Abs. Monocytes 0.55 x1000/ul 0.14-0.97 Normal (applies to non-nu meric results) [facility] Abs. Eosinophils 0.15 x1000/ul 0.00-0.76 Normal (applie s to non-numeric results) [facility] Abs. Basophils 0.05 x1000/ul 0.00-0.22 Normal (applies to non-n umeric results) [facility] Abs. Immature Gran. 0.03 x1000/ul 0.00-0.02 Above high normal [facility] Abs. Nucleated RBCs 0.00 x1000/ul 0.00-0.02 Normal (appl ies to non-numeric results) [facility] The above 24 analytes were performed by [facility] [id number], ,[place] [address] ID Date Data Source [id number] 04/27/2021 03:19:48 AM EDT [facility] Name Value Range Interpretation Code Description Data Arabella rce(s) Supporting Document(s) Care Plan [facility] DUWIIp1lZtPTHrFj22/VJFshBBMwa2BoYCpmTVm1WTodJIObD0OjRRK7dV0tLMO6QBdGYeBjFgHtEUR9 lbm [file] ICAgICAgICAgICAgICAgICAgICAgICAgICAgICAgICAgICAgICAgICAgICAgICAgICAgICAgICAgICAg ICAgICAgICAgICAgICAgICAgICAgICAgICANCiAgIC AgICAgICAgICAgICAgICAgICAgICAgICAgICAgICAgICAgICAgICAgICAgICAgICAgICAgICAgICAgIC AgICAgICAgICAgICAgICAgICAgICAgICAgICAgICAgICAgICANCiAgICAgICAgICAgICAgICAgICAgIC AgICAgICAgICAgICAgICAgICAgICAgICAgICAgICAg ICAgICAgICAgICAgICAgICAgICAgICAgICAgICAgICAgICAgICAgICAgICAgICANCiAgICAgICAgICAg ICAgICAgICAgICAgICAgICAgICAgICAgICAgICAgICAgICAgICAgICAgICAgICAgICAgICAgICAgICAg ICAgICAgICAgICAgICAgICAgICAgICAgICAgICANCi AgICAgICAgICAgICAgICAgICAgICAgICAgICAgICAgICAgICAgICAgICAgICAgICAgICAgICAgICAgIC AgICAgICAgICAgICAgICAgICAgICAgICAgICAgICAgICAgICAgICANCiAgICAgICAgICAgICAgICAgIC AgICAgICAgICAgICAgICAgICAgICAgICAgICAgICAg ICAgICAgICAgICAgICAgICAgICAgICAgICAgICAgICAgICAgICAgICAgICAgICAgICANCiAgICAgICAg ICAgICAgICAgICAgICAgICAgICAgICAgICAgICAgICAgICAgICAgICAgICAgICAgICAgICAgICAgICAg ICAgICAgICAgICAgICAgICAgICAgICAgICAgICAgIC ANCiAgICAgICAgICAgICAgICAgICAgICAgICAgICAgICAgICAgICAgICAgICAgICAgICAgICAgICAgIC AgICAgICAgICAgICAgICAgICAgICAgICAgICAgICAgICAgICAgICAgICANCiAgICAgICAgICAgICAgIC AgICAgICAgICAgICAgICAgICAgICAgICAgICAgICAg ICAgICAgICAgICAgICAgICAgICAgICAgICAgICAgICAgICAgICAgICAgICAgICAgICAgICANCiAgICAg ICAgICAgICAgICAgICAgICAgICAgICAgICAgICAgICAgICAgICAgICAgICAgICAgICAgICAgICAgICAg ICAgICAgICAgICAgICAgICAgICAgICAgICAgICAgIC AgICANCjw/mMNdF6aksHTielM8P3wxXr0ZIf5OFD8jg3JbLSQxIIvsaqHuEdxJGeLoAVPbJzoOIbh8FW xrTF2AbJMlV6IzM2TyVRtuTZ7MOEHiLLRdrOHpQHAbMEIzDqX0MNDsUCwqPJ0DuLUkTYyyHEOoYGMgRs JuOEJqGX3HHRXcC149bmXjHc7WVk2BKhEiZR8kty7V PyVqEITzPrvBXtw6UJkoUS7AhVMloFMhMuCgDXPIKdAjR7pjn2AnYrPnERFAITmiTT3Cq0AxwWEtWPs+ Eu1MPK9jb8UgIDclUtXcTW8shw3KHPlJNlBhT5NogWcmHMOhpgEuQSrkoqBuaXFYwCmmlMKrL2AiiB25 xADlQOBQJhSnvBG9GtS9GoRzFkPeTWX9JYtlTM9zDU euJU8RSXQ1IGfvKMYrKWReJ1gEOlOxHVmsBQRiuIalYQ0IJcMgX7FeosPdyKCwEGReNXAMGo5+DQplbm VmIsuWPrE2PZLwx4LuOAq8WO4BPBTpTAdyTK1DBOWgkD4yLMasZH8BWdJpKvEoAVTJPxAvN58dyDLbCD i9T4CjJtUuGPFaUhggQIGzHXtgBcYvINCjGzCqNYfj ID4+ID4+RVznIZ5WULflmiAuBOUzAj1NALEaSHMeMF3yACVoRROjP8I2lYbmKDOTSoQuP8rhwhcdEX3v ZJMoI570nGajrkReKLD4MWBlLr6IBTFeOCD8XWVlgRQrFdYtPZBOBEuaBK5BbNAjJRO5lL1pOWirIIMt AEFiJ3wVGqBipQabTD11jWzqlaHfaOFtPWh+Pg0KZW 5fp5HkLHz3xiEoZClsQJH5VXpsIYRzDOWhFPHvUVW2SVO3IKCVQkBpBEUrPFDoDRjvMJYdXQRkty4ZXQ GrUZL9CDF8BPOzYGOxMNKrGGroSSOzRAL9JEOmRGKiDJCcHZ6UChMtREXqKXZvMCanSDJrXKSspf1LMN AwMDAwMzMwOSAwMDAwMCBuDQowMDAwMDAzNTEzIDAw HHGhFI1HCsQeCBUvJMAlYROrEYMaLSRfjj2SMXAqMIWhXHVlOvDkXNDbAQXxOUvrRQWpVQN1OxQ1UUZg LLPxLX9FOrUwYIPoTGS9RjLgWXKkETUfzr7PTQYwGWFqFjL2JJKiIEJiAITmFVklLGHbSXZ7LyZvABUp MDNkQY6BRuIjESJjXTj0VKnmGJCqTLXeek5OVCLmZV FbHwg1SROrIGMxXOUzMIlcNPDlYAHpQbNeLHSlWOQyBX9RWoYuTDVbDvL0VYFuQVDaTHKyvy9MTYMzLF WzSKn9YYPrSPTmCTZiNNrxWBXvDSNxXHW3EHRyFNGnDB8MCcCgTNChUlOwKZCwDOPfPGRvmx0HETIeUZ RlUxO4XvNnBJKdVCCtABgwJIPgBKEkZrctQDKiDNVa IN0XByDrWJHjXyA0CyfwTDNsCHHhrn2KWKQoQQUyOmYkURWeGJSvTKZlECbsHCDaEUUxGkC2BMKqUFWd QJ6DKcKjLFPlYxQ9TraiQUHzCPGmny4MUIDbHVF2PEG4WmMpZBQoZWZgRDtkLPDbNGYqMAE8XTYiHSVd PI6DIgWvFZUtSUNrCnNhCEWlRFUsyx6LPSHaEPU6Xs F1YUBrZOPeICHvISagDVRqVEKkYXQ3GTSfPYAeKS6TVhVhNKTaBHQ4HXcdJIJrVWGret0OUMKiDTM5Ke p3BHOpMUXgIZYiMGauHQUxXXH1IIV9CXMkXPAuFK1CUwAeBRBiKOY9WWSdLEKtCMWsmm8FDLJtTVG9Wk P9CaGzUQJfMPKnDVuvVRCyXQA6WOW5PPJlIRAiKA2G GlPqDVJwXZEaBtYmADFcUXGujy2PlUCapYjmtc6FYStIYp0UbWyyGXO4ADgcMm9ruSHrYuXxFLNSQt8O dcFmIPOtAYLNMGgwOTGsRQVaZLFpCautULM1LqbkFWG8KBLwFLL2KdXvLMscIoLoVdA0BKFqHxJpDRW8 UQJoBCX8SeloOGF9LvnqWbLjB3AiB0O+LO3sXNq+Uw2Pv4DhcxK3yfJwRAo0RjOpDs5PCEVMN7HSAv== ID Date Data Source [id number] 04/26/2021 11:50:00 PM EDT [facility] Name Value Range Interpretation Code Description Data Arabella rce(s) Supporting Document(s) Glucose, Fingerstick 99 mg/dl 70-110 Normal (applies to non-num madiha results) [facility] The above 1 analytes were performed by [facility] [id number], ,[place] [address] ID Date Data Source [id number] 04/26/2021 06:50:00 PM EDT [facility] Name Value Range Interpretation Code Description Data Arabella rce(s) Supporting Document(s) Glucose, Fingerstick 114 mg/dl 70-110 Above high normal [facility] The above 1 analytes were performed by [facility] [address], ,[place] [address] ID Date Data Source [id number] 04/26/2021 06:45:07 PM EDT [facility] Name Value Range Interpretation Code Description Data Arabella rce(s) Supporting Document(s) Progress Notes [facility] CPXRDp4wRdXVIqIe23/JHSepYMNhp4IkEJeeZFy5MHxtEFCwD5SbYEJ7tW0qGPX2YUsVTaDsDwWaBFO8 lbm [file] ZF9jLBt+Fb4Un0ElzrG8ubAyWNmlUUB4Cs6TXUHMC6MVKh== ID Date Data Source [id number] 04/26/2021 01:21:29 PM EDT [facility] Name Value Range Interpretation Code Description Data Arabella rce(s) Supporting Document(s) Care Plan [facility] DNRJPo8yUsQZQyBs21/YSRpwQJEmx6VzKVlwFNm1FXxoOVYwE5CdEYJ7nK7jJJL1AJlHDeApYySuLPV1 lbm [file] AgICAgICAgICAgICAgICAgICAgICAgICAgICAgICAgICAgICAgICAgICAgICAgICANCiAgICAgICAgIC AgICAgICAgICAgICAgICAgICAgICAgICAgICAgICAg ICAgICAgICAgICAgICAgICAgICAgICAgICAgICAgICAgICAgICAgICAgICAgICAgICAgICAgICAgICAN CiAgICAgICAgICAgICAgICAgICAgICAgICAgICAgICAgICAgICAgICAgICAgICAgICAgICAgICAgICAg ICAgICAgICAgICAgICAgICAgICAgICAgICAgICAgIC AgICAgICAgICANCiAgICAgICAgICAgICAgICAgICAgICAgICAgICAgICAgICAgICAgICAgICAgICAgIC AgICAgICAgICAgICAgICAgICAgICAgICAgICAgICAgICAgICAgICAgICAgICAgICAgICANCiAgICAgIC AgICAgICAgICAgICAgICAgICAgICAgICAgICAgICAg ICAgICAgICAgICAgICAgICAgICAgICAgICAgICAgICAgICAgICAgICAgICAgICAgICAgICAgICAgICAg ICANCiAgICAgICAgICAgICAgICAgICAgICAgICAgICAgICAgICAgICAgICAgICAgICAgICAgICAgICAg ICAgICAgICAgICAgICAgICAgICAgICAgICAgICAgIC AgICAgICAgICAgICANCiAgICAgICAgICAgICAgICAgICAgICAgICAgICAgICAgICAgICAgICAgICAgIC AgICAgICAgICAgICAgICAgICAgICAgICAgICAgICAgICAgICAgICAgICAgICAgICAgICAgICANCiAgIC AgICAgICAgICAgICAgICAgICAgICAgICAgICAgICAg ICAgICAgICAgICAgICAgICAgICAgICAgICAgICAgICAgICAgICAgICAgICAgICAgICAgICAgICAgICAg ICAgICANCiAgICAgICAgICAgICAgICAgICAgICAgICAgICAgICAgICAgICAgICAgICAgICAgICAgICAg ICAgICAgICAgICAgICAgICAgICAgICAgICAgICAgIC AgICAgICAgICAgICAgICANCiAgICAgICAgICAgICAgICAgICAgICAgICAgICAgICAgICAgICAgICAgIC AgICAgICAgICAgICAgICAgICAgICAgICAgICAgICAgICAgICAgICAgICAgICAgICAgICAgICAgICANCj w/dSQaH9elmKBauhU4T9rtIs4BQf5NLT2eu1YeDZYb BCxzukUgChuDCtSjNETbOdxPDcj1DCzoRV5QmJItQ2YbQ0ChZOesGU7QLZOgXLZksRQnDGZzDCJpUxS2 FILaNMddDZ5IfKSqAWxoAUTmIYJxXnGdTXAkLUFjBCPjITNnMQKNODMqOFBeChXdOIOcOXGrOQprMMPM QZJ7QZYbMfLbWWUxCWUpXjCpDTOBNPS4SJKdKgZyIx ScIDQmYwmoPBOKHNTqQCNzJfYrPdAuBVJnTF6CDOVzS566diFyBJLDFx8+DQplbmRvYmoNCjUzIDAgb2 TlSYs2QY0AZSIcPrmnh4EdWDHxYLHZLEhdJA5ASDS6OSZ6ACNzOl7BOCSoP653ipJiLA8HNt6ISlZjSI 4avh2DTFCuWZKeQbqPMpq0OPdqAN8DyWHfYIoVBJSv MKUgJL4lXfujXE1dIDivKJ4tT07xZFleGn5KPZQ7ACmmJPxtFyBlRTKvLVaaUWRNEJnBWtFhE4Ilk7Ke IdO2KTZcKxLoHPluXPEiDzT6RS55fWkaJK9CTNFqWAHrAN26SUNgTQKgLf0FKg4NMqYySF7lnj1CDWVi WCZuIfjWDov3HAwfCH4LfNTvV9ImiANrw4hBMgJnC8 ZASHJsHHCpZh8QGCVhJiGbSIUxUQnkZS2uDUBnZFAKjMgmegP1KN7VST8jxaDlEU1BNpSsPx6kLv7JFz BfJ1JvJ9XfIQHaDOSGDKirOH1KLVdmNZ4jGA6Rb9FSwECyeB9gjz6PYHMvBPKzGoxgta3OFwkzS1G4mO eqUPTqTZPcSKSRBXhyMC5MBVIlBAH9VOT9NbSqUIEF AjQsG83uLS5QF2Ixh42cDlW4XFDkMhLkYYitDB77vMcnxaLpvUHzdXvnCN1UCa8+DQplbmRvYmoNCnhy AGQKUzMaFTCAAxUxXBPeUORlZXEyEyX8GxZtXb1JRLVkIBSpDMPnTkAmZGSsPSIcXKtrUSHjOZE4AaR1 RWFhUHCeRV8EOtFdRWOnNRV8TkLvOFNjSPKwqm0SQU LtAVZyOYG8CqZxKQZzZUUnAGzqQVVtCAPmMyldZWOzPOWuHC4DPaGtYFZvQUE4GZSvGWFmIHGilw0KSG FrGGAqDqQzKqBiFMUmHRFfOYpzLBLcFOLqPHWtGFDrOMFrVX6GTdEwMZSqOXY9OYWxMADzOZIvyk3IRB HwACNwHQa7JfGuTGBxDHJtYIeaYETjDPD6Xbr2NDZs OEEwUQ5GVvJlLJGtPVdcWATbXOSjFWTukg2DBDRhCGDgASUaOgKwNUWpJYRzXFlnEKKdUJQ5WTK5ZPMv TLFkHC9SOeXwVWUzIVQ7AWPnBYGxCFEoty7NXZGqRUVyVNY7XrKtKBWbRDZxLHbnYWOtEHZxWEL8GOPd MJZmYI8HAmLwHCAeEEU7OENnVHAtFHCuuc0EJYThVT ZnZKMvOONjYCPuDQAcEWjiJINbQWY3BlBjVXPwTKPgIY2NFmDnYPUkOBB2GUHuSCKhESGxee3TWGKeUH MuIAe5IlSySQFqSJAcGLvkTORqJOC8DsIcLAAbEKXtDL7XShLfBAOuRKv3INfdPORfIFIodx1UILHpWA QePHVhGDKlJWFgEIVvLVoaGYDzUBR1KHBqJQDiNPYl ER9FWyNfCLIfNeRyVQrbTWWbQOOhnk7NLDUkVKHlAQH9FvTvYOVcCDUqANxdVDGdFXFbFGA4KTSoDGVr WA2MGlOrVSSyMeJuQvZdSXJtHBHoab6VICZyUCOlIUUxODZmAKGmEHJwLJqzZVMpFEX3EbJ6CXBeOYMb VP4RMvYpLUKbEhN1HnFtNSOcSADloq7KMEUfZFZtCf EoHnAbYSFhTPWuLUraNCTtWCH7HUu1MCWuYAPpBH7LZiVaYOUuChv6YAsnGJDvYSOqam2ONLDcXASoZf r7XmMmHRSvOUCtFIjcNDYcDRE3GNB1CPCkABXpUY9TYeUlVXRtRwmwEoVhUHMfWOMkmv0LCSIjXCMuTI DcEsOfTTNkECWsDTlaOGYqEKOgXlY1KKEsNDJrEJ9D NkSzSUDvZXP0DXNrYSBjUYHkev4AZJTkPTX3OvV8FKFrNSZyKLRxPPmmYDKrSCDyMJJgOQJdOVPqWH4U ZnBfOUXrHDB3SpXcGEHbPSUvxm9COKNvQYO6NyMmDSSsNLOoNAUlDZovKSCrVVSsJwI5KIOnIDCoJS0S VaCeBTGxJBQ7EFWrOSUbTIRgxj6XLEKsFBO6BUw1EG XwVHYzOTPsTPesDZPpBMH0KYO7DGQbENRbCG4FEpIsBMWyGMCjYKYmOPLxXXCzyc2ITEMxJHH1ENGnBQ EsHPNxJIKgQPimZUSoCZF9HCybKPUuNLRjBE2RPdAxULFiHZikRDIuXXZsCMMqlf1OSBHmJFK5WkA1WN CcMQFhJWHsQEb9zvQwfLNdHQo3US1HB6XbukCnMDKJ Jy4Ez382PRT9JMAgEg5HX5xpFx4eHAFqFKQDNu7OZBs1SMD4PnAwOGY0LXIgXOBuEZc5LNTiGkxrLuXh NTkyZjg+FMzxYXF1NbOkUOT0FXC1LET6VCGkNwN6O5PlPyD6LXSyEK5mKDEEZe4+DQpzdGFydHhyZWYN FgO8NyS0NLegDTUFLo7Q ID Date Data Source [id number] 04/26/2021 01:20:39 PM EDT [facility] Name Value Range Interpretation Code Description Data Arabella rce(s) Supporting Document(s) Care Plan [facility] FYJYTf1nIgSRCzIx41/XTIzcTHDdj6HwYIgpSAz9JFawKITfR7FrPJC0bC7aVXC1YTkDAfGiVzPjSHT8 lbm [file] GOT3PAbmSORNYz1D ID Date Data Source [id number] 04/26/2021 12:43:10 PM EDT [facility] Name Value Range Interpretation Code Description Data Arabella rce(s) Supporting Document(s) Nursing Note [facility] YABJHo9pYoCFBsOu07/XDCmrNNEyv3NsVMsyOTv5YJogJGEtG0UkWBI4tI3vJUA7DAlFFbIwFhZoIZV4 lbm [file] C7OBHiIEZ+SS0bLDm+Ya3Bn1HdunZ0sePqPZslXSIySO2KJDUSA6WIFa== ID Date Data Source [id number] 04/26/2021 12:06:00 PM EDT [facility] Name Value Range Interpretation Code Description Data Arabella rce(s) Supporting Document(s) Glucose, Fingerstick 107 mg/dl 70-110 Normal (applies to non-num madiha results) [facility] The above 1 analytes were performed by [facility] [address] [employer], ,[place] [address] ID Date Data Source [id number] 04/26/2021 04:59:00 AM EDT [facility] Name Value Range Interpretation Code Description Data Arabella rce(s) Supporting Document(s) Glucose, Fingerstick 84 mg/dl 70-110 Normal (applies to non-num madiha results) [facility] The above 1 analytes were performed by [facility] [address], ,[place] [address] ID Date Data Source [id number] 04/26/2021 05:20:00 AM EDT [facility] Name Value Range Interpretation Code Description Data Arabella rce(s) Supporting Document(s) AST 15 IU/L 15-37 Normal (applies to non-numeric resul ts) [facility] Sulfasalazine and sulfapyridine have the potential to falsely depressAspartate Aminotransferase results. Baseline values before medication administration are recommended. ALT 19 IU/L 13-56 Normal (applies to non-numeric resul ts) [facility] Sulfasalazine and sulfapyridine have the potential to falsely depressAlanine Aminotransferase results. Baseline values before medication administration are recommended. Alkaline Phosphatase 53 mIU/ml 50-136 Normal (applies to non-num madiha results) [facility] Total Bilirubin 0.70 mg/dl 0.20-1.00 Normal (applies to non-numeric results) [facility] Blood Urea Nitrogen 11 mg/dl 7-18 Normal (applies to non-nume ny results) [facility] Creatinine 0.76 mg/dl 0.51-0.95 Normal (applies to non-numeric resul ts) [facility] N-Acetylcysteine (NAC) and Metamizole em ve the potential to falselydepress Creatinine results. Baseline values before medication adminstration are recommended. Patients undergoing treatment with phenindione will have falselydepressed results. Patients on phenindione therapy should be tested with an alternativeCREA method.Toxic levels of acetaminophen may lead to falsely depressed results forpatient samples. Glomerular Filtration Rate 85.00 mL/min/1.73m2 [facility] GFR Reference Ranges:Normal Function or Mild [...] of Health and the National Kidney[employer]. The [place] method used in calculating this result is traceable to IDMS standards. Glucose 81 mg/dl 70-110 Normal (applies to non-numeric resul ts) [facility] Sulfasalazine has the potential to false ly depress Glucose results. Sulfapyridine has the potential to falsely elevate Glucose results. Baseline values before medication administration are recommended. Calcium 7.8 mg/dl 8.5-10.1 Below low normal [facility] Total Protein 6.4 g/dl 6.4-8.2 Normal (applies to non-numeric re sults) [facility] Albumin 2.9 g/dl 3.4-5.0 Below low normal [facility] Sodium 139 mEq/L 136-145 Normal (applies to non-numeric resul ts) [facility] Potassium 4.0 mEq/L 3.5-5.1 Normal (applies to non-numeric resul ts) [facility] Chloride 113.0 mEq/L 98.0-107.0 Above high normal [facility] Anion Gap 9.3 [facility] Carbon Dioxide 20.7 mMol/L 21.0-32.0 Below low normal [facility] system The above 16 analytes were performed by [facility] [address] [facility], ,[place] [address] ID Date Data Source [id number] 04/26/2021 05:20:00 AM EDT [facility] Name Value Range Interpretation Code Description Data Arabella rce(s) Supporting Document(s) Magnesium 2.1 mg/dl 1.6-2.6 Normal (applies to non-numeric resul ts) [facility] The above 1 analytes were performed by [facility] [address], ,[place] [address] ID Date Data Source [id number] 04/26/2021 04:54:00 AM EDT [facility] Name Value Range Interpretation Code Description Data Arabella rce(s) Supporting Document(s) WBC 7.39 x1000/ul 4.80-10.00 Normal (applies to non-numeric re sults) [facility] RBC 3.51 x1Mil/ul 4.20-5.40 Below low normal [facility] Hemoglobin 9.3 g/dl 12.0-16.0 Below low normal [facility] Hematocrit 30.1 % 37.0-47.0 Below low normal [facility] MCV 85.8 fL 81.0-99.0 Normal (applies to non-numeric resul ts) [facility] MCH 26.5 pg 27.0-31.0 Below low normal [facility] MCHC 30.9 g/dl 32.2-37.0 Below low normal [facility] RDW 15.4 % 11.5-14.5 Above high normal [facility] Platelet Count 256 x1000/ul 130-400 Normal (applies to non-numeric results) [facility] MPV 10.5 fL 9.4-12.4 Normal (applies to non-numeric resul ts) [facility] Neutrophils 48.7 % 40.0-74.0 Normal (applies to non-numeric resu lts) [facility] Lymphocytes 41.1 % 19.0-48.0 Normal (applies to non-numeric resu lts) [facility] Monocytes 7.3 % 3.4-9.0 Normal (applies to non-numeric resul ts) [facility] Eosinophils 1.6 % 0.0-7.0 Normal (applies to non-numeric resu lts) [facility] Basophils 0.9 % 0.0-2.0 Normal (applies to non-numeric resul ts) [facility] Immature Granulocytes 0.4 % 0.0-0.5 Normal (applies to non-nu meric results) [facility] Nucleated RBCs 0.00 % 0.00-0.20 Normal (applies to non-numeric r esults) [facility] Abs. Neutrophils 3.59 x1000/ul 1.92-8.31 Normal (applies to non-numeric results) [facility] Abs. Lymphocyte 3.04 x1000/ul 1.20-3.70 Normal (applies to non-n umeric results) [facility] Abs. Monocytes 0.54 x1000/ul 0.14-0.97 Normal (applies to non-nu meric results) [facility] Abs. Eosinophils 0.12 x1000/ul 0.00-0.76 Normal (applie s to non-numeric results) [facility] Abs. Basophils 0.07 x1000/ul 0.00-0.22 Normal (applies to non-n umeric results) [facility] Abs. Immature Gran. 0.03 x1000/ul 0.00-0.02 Above high normal [facility] Abs. Nucleated RBCs 0.00 x1000/ul 0.00-0.02 Normal (appl ies to non-numeric results) [facility] The above 24 analytes were performed by [facility] [address], ,[place] [address] ID Date Data Source [id number] 04/26/2021 02:31:41 AM EDT [facility] Name Value Range Interpretation Code Description Data Arabella rce(s) Supporting Document(s) Care Plan [facility] EOCKHe3oPgZPObDi76/MKLneIFTcl8SsIBhmUZv4AZoeWXXdW4IaBRU7mS9wIWF0YEhKTxJfBbEfHBM0 [facility] [file] [id number]== ID Date Data Source [id number] 04/25/2021 11:21:00 PM EDT [facility] Name Value Range Interpretation Code Description Data Arabella rce(s) Supporting Document(s) Glucose, Fingerstick 84 mg/dl 70-110 Normal (applies to non-num madiha results) [facility] The above 1 analytes were performed by [facility] [address], ,[place] [address] ID Date Data Source [id number] 04/25/2021 11:09:15 PM EDT [facility] Name Value Range Interpretation Code Description Data Arabella rce(s) Supporting Document(s) Nursing Note [facility] AJXUXi1zFpNTDeBs68/MMPjnELVdg3RbPIcuODt9OQlkBVPyD9XnIXE5jO1kJAQ5FKkOGgAwEbKwKAN8 lbm DcBfpAStSxIBIsNotCUcEeBMriPnmnyBAxRS8QkBO6EQWbB94rZFJaBASkJ0CqNSKkOhr+Ou5QYRIamH ScVE4DMtzZ5UtwfurDNX0a4S+AesZh8P8bnRkdMENuHFFWHMSir09bdHLB1Ao7Y2FsrA5twZHOqOpeGZ 8tNKViHNVDRO7prlABBlQ/+4xbMfCNAK7eVrth9GCI 664CbIfrsgMkFhOSTHLlDE7jdqdwgaDcZsKoFL/IWGny3yKsTKsMgLRbjKdYbS3bTLo0HxhEciSgJJSO t3A4OjTXIjwpGidCaup02oWZVQyjXk/bVPZabtOteRLAqIwFUdUE8ZT09yUtt2ODx2BNPJWwzhPzrrLN ZWU8UofpP3mwoHtJ0jR2og07Dvr6RNB5q8QNWPwGYA IY9qJ7p6MT3a8nwBdK0oYR+kuqZeFrstJNWl1bUrhYVOrFM7gfVaNXsNqEbWEdJfkZXkvKwkETgHbtOB NgdMjuO8+Maddy/+tiFfTh/Yv9VsAZSm7frjqvMtNQRPymvm8N4zEiSbhyHZA+un3Nh6oMCtVO9Gnt2SVq [file] T0CWO5rTRsXo6XGtKjAUWKYiQeMR4SSSm= ID Date Data Source [id number] 04/25/2021 07:08:57 PM EDT [facility] Name Value Range Interpretation Code Description Data Arabella rce(s) Supporting Document(s) H&P [facility] IIFJHi9gCkHFGgAn41/GXMwjXHOdv6JzXUdcUHr8QIzoOYKlO5QiKYW9nI1uZSY1NAhFPiYbOpDsPTE2 lbm [file] MjEgMCBSDQogICAgICAvRjIgMjQgMCBSDQogICAgIC UeLyHyKieeGSLVWTjwTCReJLMkIhChOxEfVFWIDIldKVCpOGJwTrJwToFoDYLXSz3HKeIaELGlHG7xul GvkYB6EQT+Fi2OYAZzAM3CoCUGO3WynHZmLQygM0IOUO9BTIW3AL1LjTPtDM8MsQWCN5MuvPGuNk3uFT Qld6MlNx9pA2HBEUKKXFBqBFrxNSawMDMqCYe4K6Y6 DJFlH7HHD553dQPniEj9Py9kJ4MJXVqHGeSzPTwzXQdcQIEeHEi0X4Z8BRVzF5BJP2BuLaUryqQiO6O+ DjUxLYMBNE8SGVSUJKz5P5Z9qAMlG7Z2iFaQgII3ZH3VTD9ToUWjaKMha51+SoMLYuFmHGFcY0CLTDPP RqFuILvxWKrnJPFtLUw8N0P9NFVhY1WZH2wvN1e6IU 4+UnEMJqKbNHPsWy9PCyCcGh3LVnCqDZ3sjz5WIgWiHRCfOtmWIcv4L0xassx3jWJaSoH0Y1D2SpF3fT ByIW1AL3P7hNWlOJK7KWFihRI+Op3Ng4QbBYFfUBa5Z2yiDDMvJMYdTcBndG64Q++8pfvjdCZ1T6b0JA EMcTJuoKbXrdAlQ1jRBRX6y7H1OZq/Ym7KSQK5bYq0 dZXfMXSkCDs0dF9phYa7PhVrCA28KZDfIPuebR6hPrx1Y6Tko9FwWl5xYl7pgGIkKv9RUgAwMFC9inRu TaNHXiP8aUjoacteFLP1T6u7bZW1Qt49m1yaxdYxq7PaFxH6SVlaJDFrFnRcpbSgCPX8yyHsqP1dptXa Qv5MLVMfGEkhdbXeYiCSRa4FCmDpWS34CysclI1boT E+DQogICAgICAgICAgICAgICAgICAgICAgICAgICAgICAgICAgICAgICAgICAgICAgICAgICAgICAgIC AgICAgICAgICAgICAgICAgICAgICAgICAgICAgICAgICAgICAgICAgICAgDQogICAgICAgICAgICAgIC AgICAgICAgICAgICAgICAgICAgICAgICAgICAgICAg ICAgICAgICAgICAgICAgICAgICAgICAgICAgICAgICAgICAgICAgICAgICAgICAgICAgICAgDQogICAg ICAgICAgICAgICAgICAgICAgICAgICAgICAgICAgICAgICAgICAgICAgICAgICAgICAgICAgICAgICAg ICAgICAgICAgICAgICAgICAgICAgICAgICAgICAgIC AgICAgDQogICAgICAgICAgICAgICAgICAgICAgICAgICAgICAgICAgICAgICAgICAgICAgICAgICAgIC AgICAgICAgICAgICAgICAgICAgICAgICAgICAgICAgICAgICAgICAgICAgICAgDQogICAgICAgICAgIC AgICAgICAgICAgICAgICAgICAgICAgICAgICAgICAg ICAgICAgICAgICAgICAgICAgICAgICAgICAgICAgICAgICAgICAgICAgICAgICAgICAgICAgICAgDQog ICAgICAgICAgICAgICAgICAgICAgICAgICAgICAgICAgICAgICAgICAgICAgICAgICAgICAgICAgICAg ICAgICAgICAgICAgICAgICAgICAgICAgICAgICAgIC AgICAgICAgDQogICAgICAgICAgICAgICAgICAgICAgICAgICAgICAgICAgICAgICAgICAgICAgICAgIC AgICAgICAgICAgICAgICAgICAgICAgICAgICAgICAgICAgICAgICAgICAgICAgICAgDQogICAgICAgIC AgICAgICAgICAgICAgICAgICAgICAgICAgICAgICAg ICAgICAgICAgICAgICAgICAgICAgICAgICAgICAgICAgICAgICAgICAgICAgICAgICAgICAgICAgICAg DQogICAgICAgICAgICAgICAgICAgICAgICAgICAgICAgICAgICAgICAgICAgICAgICAgICAgICAgICAg ICAgICAgICAgICAgICAgICAgICAgICAgICAgICAgIC AgICAgICAgICAgDQogICAgICAgICAgICAgICAgICAgICAgICAgICAgICAgICAgICAgICAgICAgICAgIC KwBXQrXZQxBPXrGAMfZEKkRHLeGBEkTVLtNWNsTGAnFQXuGZGaEXKiSGKlWZOkNCCcQDGaLVk8A8ijNP XbCIZbKO2uSXq1Jd1+KUlNNlKaIQM6qmKguM7GQR4e h8YkEOegASPbq0TtSYr8MG4ADEDwRJjfVX7JGCoklj1ATIBeDSLytEGXo9qkPxArFDI9DZEsHjvnSV6A DOGyP5mnicYoWBCiHSWWQIjcVUPFTMosJUGJPRIbKUYwYcFuShYwZBOkVBIyIXZDKU2LVjImX8ToeK23 IDYNCj4+YZyhfuZtRwdOGpU8RCRht1YdZAl1OU4XJV DzVhlos2QrKpdlPSKXZMqnFX3MSRE1HUL1LVGlJi0VQFDxW834rqWuOZ0RLd1BCjQfFM9gzm9JVsxkZB GcXyhOOrv7ZPwiMH0GyXEwLYzJRxJiGtifVFTspXD0PVA8XDB6GBUWGXBbzLW4QcL1KtRrLdSrDYE8EP AlWS2rHMmyID6ODRZ3XVbrEZIdCDHvK1hKArEvIAvd RPYiaFbwQB3FFwTfM7AzxzCgsYLuRkKrKUCIUg5+JTwbyjHkUzsBPhJ2LYZzx1LvWGp1DR9FUCRwUZpg CR7OICWtqJ9oGVoeRT1OEgIdSZUiWESIHvFgG54ebIInBVp0G1NdCbKwKABlYozlMJBnFZaeZiPkPRAw WyBdDQogID4+ID4+PKeaRH4CNIxsauKzFFPaSb9JWC XqPEDjSW7oFCZnUWAcL2H6dAzpAYJACrNaB8xvvitzTQ4rEVDsO906jVymepZdEJR7FWXpVd2ARAAlPN Z3WLPowULeUbIsTHYKFFhzZD5NtHYzHBN5oQ2gZQfvKFZjMAClC5vKWjUjtJmwPU48aMyhapIdtXWnAX o+Ly4KIW4px7RoMXc4pqQuSUtwYRI6LMfsKQVvHFHs ERKwLAX1CGT7XKSNPxHyKRXhMZGnDYopDPFrDOIxdu9GDGEvVYWnXnX0QHZfGURnRKCmVBspQYDpZKU0 KLVkGWHmSRLdBP1ZBvVjPTXgAFOvMYooGDJbGHCuqu0NGCIeICCfKdW1DnRrPMSrTWIqDLdsPRCiAOOw RvKqEFMuYNWpII3IVyNaBILpHYIiUIvwXKKzISZyyx 4MPDUjITUkHqN2DlDxXQHzYUHdCFafSIQaPKI4JOV2MZKiIIPcSQ0KMnWoGHImAHswCfDmQNSkXOWamk 6MRXFdNOAfSUY7POXtCTEjVQOlGFrcRBIcKERtOWN5SCAfYBWxQH8WLpGmTMWfRDVaPgUqWCUvQOFykv 1LHEIrBCHjGKM9SFUgPUPcBMEdHIjaZZOiAAV1ZuI8 RIVgMDWaAM4OOhTpKDObNBG7LrNrYJHdDXDgdo3QIZIkURAhSLq8PSMlHSWhQWDqOOxzCDPtODE3JAcr LNFkJGEyIU6KSjDlNMYyUNSpEIZaSYZyBZBowd0RCQJmGIVvAjY1CMXfZDMzQRDlDUqfJVOuXWL7MEJ5 SEXqUPPxRC3OLeMoQRJjBLw0AmUtRKGnCYBaqx5EAJ RkWDHkCZL3MKJaTXKtTVVlCKebIHVfTEJ5Coj5QJWpKXYnBW1TEsPcLSQnCUl1ZlPvXNNzBXQcss3VDV YeHWKjRJqwOfUfCSMxICSnJBheHBWkBGRiGTPfLVRrCTFhAR8CCsCfDEHvEsDgRjIsRNEoPDXcsg2FPZ MjKDQkUSP5LISoNNFuMWXmKShgZEFrKFTlPXo1HIZd QALwZE9BDtJiVLDlAzQ1EvPaWYLbCTVgwj8ARRVeTERpIkErJyIzDUXsEKYzDFgjQWIjNLReZRM5IZUq MXHcFL5NHfPtETKvGcVfKiYpPTLnBGOycc4RNBGzJQYgGuLkFQHqHNWvSHDgKRuqIUIvKSY3XEzzJKMl IPPrNJ4XJsBcMNSyYlOeZWEzKQGvCCAvjg2GMCCcQQ NyXQE6OCKkAKDhRXBwPBf7vtHusUBiQOx3SN2DX0HwhwJlHggCEa9Iz903NVS0UGAmSb7LL2cuWz0kJG KrZJLIQm0KPKd8ZDZrMPIfE9QnRdP3FRrhUXVcHJcsRiSlVCYpGYUdIOE+LXz9RXSaFPH4GwHmADyaL0 N4MQEeRGPzUIEsNuWbDZWfFH6aNNNWMr6+LDyzzTJjlSucESQKFiE4SGBvQPeiMPQTPz5S ID Date Data Source [id number] 04/25/2021 06:53:16 PM EDT [facility] Name Value Range Interpretation Code Description Data Arabella rce(s) Supporting Document(s) Care Plan [facility] TWJZMi8rVgJROtKw17/FANkcXIMqe2PbGGxhQBm3RAbkQZIyO5OmTQA4lA6nVII9OJsFQtIvQpMaJDX8 lbm [file] ICAgICAgICAgICAgICAgICAgICAgICAgICAgICAgIC AgICAgICAgICAgICAgICAgICAgICAgICAgICAgICAgICANCiAgICAgICAgICAgICAgICAgICAgICAgIC AgICAgICAgICAgICAgICAgICAgICAgICAgICAgICAgICAgICAgICAgICAgICAgICAgICAgICAgICAgIC AgICAgICAgICAgICAgICANCiAgICAgICAgICAgICAg ICAgICAgICAgICAgICAgICAgICAgICAgICAgICAgICAgICAgICAgICAgICAgICAgICAgICAgICAgICAg ICAgICAgICAgICAgICAgICAgICAgICAgICANCiAgICAgICAgICAgICAgICAgICAgICAgICAgICAgICAg ICAgICAgICAgICAgICAgICAgICAgICAgICAgICAgIC AgICAgICAgICAgICAgICAgICAgICAgICAgICAgICAgICAgICANCiAgICAgICAgICAgICAgICAgICAgIC AgICAgICAgICAgICAgICAgICAgICAgICAgICAgICAgICAgICAgICAgICAgICAgICAgICAgICAgICAgIC AgICAgICAgICAgICAgICAgICANCiAgICAgICAgICAg ICAgICAgICAgICAgICAgICAgICAgICAgICAgICAgICAgICAgICAgICAgICAgICAgICAgICAgICAgICAg ICAgICAgICAgICAgICAgICAgICAgICAgICAgICANCiAgICAgICAgICAgICAgICAgICAgICAgICAgICAg ICAgICAgICAgICAgICAgICAgICAgICAgICAgICAgIC AgICAgICAgICAgICAgICAgICAgICAgICAgICAgICAgICAgICAgICANCiAgICAgICAgICAgICAgICAgIC AgICAgICAgICAgICAgICAgICAgICAgICAgICAgICAgICAgICAgICAgICAgICAgICAgICAgICAgICAgIC AgICAgICAgICAgICAgICAgICAgICANCiAgICAgICAg ICAgICAgICAgICAgICAgICAgICAgICAgICAgICAgICAgICAgICAgICAgICAgICAgICAgICAgICAgICAg ICAgICAgICAgICAgICAgICAgICAgICAgICAgICAgICANCiAgICAgICAgICAgICAgICAgICAgICAgICAg ICAgICAgICAgICAgICAgICAgICAgICAgICAgICAgIC AgICAgICAgICAgICAgICAgICAgICAgICAgICAgICAgICAgICAgICAgICANCjw/tSPpT6jufMNkpuY0Z8 dfLb3LQa5QXM1lr2GsXFXuEZgimpQxYalXRoIySRVnJnvYIzu3ARccVZ6WdUEkH5VtS2BkHSrlSV1EWF HcCUWfuFDzFUWpITSqSdT0OQXiPLfbIF7LxPMgBNgh WKWvVBSpUsTsDWGlRCMbFJVmKBIwJZADDZ0FOzQvQ2KywD74OXGKFl6+RNcvreLoYgkVNsLpFGSou1Wf SDd1ZM7JCVGlRtycc7ZaDnWzFYSGZLofJF5EHGJ8AOKcIMJbBv2XICYyV960fzUkWW0XPf1LMnJkXO9d en2QGaAeIJImVazELwj0HGqfWH6CjFVvPZxSRLJlKN YdPL5aTekeCNL3t98bBH5dvDgaOp7fTXKkJI7tRu5aUDCeRHP4SkKuKHVLKP6DUDGvKADqcFTlZFSeWP BQOP2SPZmkXEI5KxyglsOcoKGyDJdbAV9BZJQgzfBsMbHsGCGPOCe+Hb1OTA9vv4UbLXftNeHbJY0wdu 8ABMyUWiLrK9G6dSRpS7E0KPzzHi1GVUJuUHUkShlb HZVXKZxvQB3HXY8danO4EG8MhMLuUWUnOKQbnGIkIQa4J10lsCCtEMxgAQ8SJXK+Mau+Qv2QTPFmJTIi XISnQwYxYHPEAyEvJ5HlN8KGv6ZjI2ZaFY45rUxolxTeSCykOP9RBK6qEWDcEPMHOT7QjODnkC6tgnPf ZRYdCCELVlNpH10lxFAtOTQqIPOlPOQyAs2IOMGoV1 EzwdIcmSypsgZsOSKdHEOHNV5RWFypsdItyEAyzVpdPR33yQwrNR9UFt2YGjAuYO5qhw4YrFPwXx4ZBK SqZS1ERJEsXOEzOBKgKWR3WQIkKiZlIUqhUBIiUBJdNNF6DEXqFLJqFP4HJvIhRJXgPxB9IxUfOYIrAP Qnzm5WZFCjGZXfFJWyPoGrLCBwKOByTKchMOHbNELh YHN0LHXbENXzHY0CYhDxWEMiVEBbIORtDFImSJOtnv7PGVSzAKVsIsZ3VdGaPLYmZVZdVVxuLNEaZNV8 KiD8WMNsCWGzYL6TWvKwQKRcYBH0VIXxPQIhLRZauk1VONMtWOGhPjR7ZAMhFIHyJSSuUOgdMIQzFMK3 JXm7OMNdCVRgIR4BIvBfHZVrXEo0TgFbUHGhDTZvzs 6GAEJrYCRwTAA5CDQqWJVxDEXbLDpuUQVkMKI8VUR6GZMkYQEeTP6USdMtKHAtIAbtTyMdYWKbYDBmlx 1CVYWtDXBjGFWfGAHoLDOzYOXtQUipUJDpYTJxTco8CWTcBGYkGT8IWwTeSIWzDOS3SjQkYBEgETDtvh 8YFDYbWMHmCUs7RWAqRNCgCSHwDUseOSUvKHZnXAG9 VMAlNCJqNH3KEmPfRRYcIlL8NhNsUPTuYYNklb0LSKJdSPRkSbFvOqEmTWCfYLJfVAugLJGxBXEpVHma EMFlMVFeKJ8BUbOuOTIsBkWlARwjMTMdVYIfgb9FQDTfBKKdTXf8DPOwXQRhVKUeUBpnYZIpKVO1ECJ0 YTNmSEHhKI3OOjNpDXNvUbIkSEDyMZBmDZFkts3BFO VtFBZaMgR9JmDuHLGrGIKxYBxsZCCjKBG6XDuiVQVmXVZyET9JRgLuONLxIzZ4BRBkSPZbAIIzsr6XJM HyUPRkWhX3ZkJnPBVbTSEsMEefXCSxMTA5RJK0KJDqRRUySV6VPdSnFPXtSji3BCHpGYCiBREtwl3NFK OkHGImAGp2AHXeTWHxSJMbGUg7teFvrFEuQOk0DP4H C2WqenNiOrQNAm0Ot537PBUcFCFhPt6YI2jwIs2oBQKtJAUFFt3CYYz1UDY0WyNqFXZ7IND9BvXnRQw6 YBAmFwt0FBWiZVH0Vdp+ZUo7OIVnHDMdXeW9FZabJURbHEc1FIIpWxqfNQAtLVvxSC6hMZAUYs0+DQpz qYAumHhiHXCCGpH1GFr8BOoyCGOLHg4L ID Date Data Source [id number] 04/25/2021 05:55:38 PM EDT [facility] Name Value Range Interpretation Code Description Data Arabella rce(s) Supporting Document(s) Consults [facility] YWHIUn4oCyACNeQy35/NJPxlLVKcv8GdSIdvHYq3MZuwZCPzD8QcYIB1yS2zFMI3DMjLRaBbQkZdOLC7 lbm [file] CARLOS A+wFhQuzVaVnZ4bRzUNo9NdbGETg8iipXqAfd0rlT [file] i5Vqd8AxVlUwXcCy1gXQZBJy9+TKqtvQVnmIenGJKZKvVpUHEoQUgyLHSGBn9E ID Date Data Source [id number] 04/25/2021 05:13:00 PM EDT [facility] Name Value Range Interpretation Code Description Data Arabella rce(s) Supporting Document(s) Urine Color Yellow Light-Yellow,Yellow Normal (applies to no n-numeric results) [facility] Urine Appearance CLEAR CLEAR Normal (applies to non-numeric results) [facility] Urine Specific [place] 1.034 1.015-1.025 Above high normal [facility] Urine pH 6.5 5.0-7.0 Normal (applies to non-numeric resul ts) [facility] Urine Protein TR NEG Abnormal (applies to non-numeric results) [facility] Urine Glucose NEG NEG Normal (applies to non-numeric re sults) [facility] Urine Ketone NEG NEG Normal (applies to non-numeric res ults) [facility] Urine Bilirubin NEG NEG Normal (applies to non-numeric results) [facility] Urine Blood NEG NEG Normal (applies to non-numeric resu lts) [facility] Urine Urobilinogen NORM <0.2,1.0,<2.0,0.2 Abnormal (a pplies to non-numeric results) [facility] Urine Leukocyte Esterase NEG NEG Normal (applies to non -numeric results) [facility] Urine Nitrite NEG NEG Normal (applies to non-numeric re sults) [facility] The above 12 analytes were performed by [facility] [id number] [facility], ,[place] [address] ID Date Data Source [id number] 04/25/2021 05:04:00 PM EDT [facility] Name Value Range Interpretation Code Description Data Arabella rce(s) Supporting Document(s) T3 65.42 ng/dl 60.00-181.00 Normal (applies to non-numeric re sults) [facility] The above 1 analytes were performed by [facility] [id number] [facility], ,[place] [address] ID Date Data Source [id number] 04/25/2021 04:45:00 PM EDT [facility] Name Value Range Interpretation Code Description Data Arabella rce(s) Supporting Document(s) PT, No Coag Tx/Coag Tx Unk 11.7 Seconds 10.2-12.9 Judith l (applies to non-numeric results) [facility] Attention: Effeciive 01/03/2020 The nor mal [...] 0.9-1.1 Nor mal (applies to non-numeric results) [facility] Suggested therapeutic INR ranges for ora l anticoagulant therapy: Indication:INRPrevention and treatment of DVT and PE2.0 - 3.0Prevention of systemic embolism with atrial fib., acute IN and 2.0 -3.0 tissue prosthetic heart valves.Prevention of systemic embolism in patients with mechanical heart2.5 -3.5 valves.NOTE: The INR is only valid for patients on stable oral anticoagulanttherapy. The above 2 analytes were performed by [facility] [id number], ,[place] [address] ID Date Data Source [id number] 04/25/2021 04:45:00 PM EDT [facility] Name Value Range Interpretation Code Description Data Arabella rce(s) Supporting Document(s) PTT, No Coag Tx/Coag Tx Unk 30.1 Seconds 25.1-36.5 Norm al (applies to non- numeric results) [facility] Attention: Effective 01/03/2020Please no te the change in reference range for PTT (No Coag Tx/Coag TxUnk) ResultsPrevious Reference Range: 24.9-30.6 secondsNew Reference Range: 25.1-36.5 secondsDiscrepant results may occur due to anticoagulant effects such asheparin, direct thrombin inhibitors; argatroban (Acova), bivalirudin(Angiomax) or dabigatran (Pradaxa) or direct factor Xa inhibitors;rivaroxaban (Xarelto), apixaban (Eliquis) and edoxaban (Savaysa).The above 1 analytes were performed by [facility] [id number], ,[place] [address] ID Date Data Source [id number] 04/25/2021 04:33:00 PM EDT [facility] Name Value Range Interpretation Code Description Data Arabella rce(s) Supporting Document(s) WBC 6.78 x1000/ul 4.80-10.00 Normal (applies to non-numeric re sults) [facility] RBC 3.60 x1Mil/ul 4.20-5.40 Below low normal [facility] Hemoglobin 9.3 g/dl 12.0-16.0 Below low normal [facility] Hematocrit 30.3 % 37.0-47.0 Below low normal [facility] MCV 84.2 fL 81.0-99.0 Normal (applies to non-numeric resul ts) [facility] MCH 25.8 pg 27.0-31.0 Below low normal [facility] MCHC 30.7 g/dl 32.2-37.0 Below low normal [facility] RDW 15.3 % 11.5-14.5 Above high normal [facility] Platelet Count 266 x1000/ul 130-400 Normal (applies to non-numeric results) [facility] MPV 10.1 fL 9.4-12.4 Normal (applies to non-numeric resul ts) [facility] Neutrophils 43.7 % 40.0-74.0 Normal (applies to non-numeric resu lts) [facility] Lymphocytes 44.7 % 19.0-48.0 Normal (applies to non-numeric resu lts) [facility] Monocytes 9.1 % 3.4-9.0 Above high normal [facility] Eosinophils 1.3 % 0.0-7.0 Normal (applies to non-numeric resu lts) [facility] Basophils 0.9 % 0.0-2.0 Normal (applies to non-numeric resul ts) [facility] Immature Granulocytes 0.3 % 0.0-0.5 Normal (applies to non-nu meric results) [facility] Nucleated RBCs 0.00 % 0.00-0.20 Normal (applies to non-numeric r esults) [facility] Abs. Neutrophils 2.96 x1000/ul 1.92-8.31 Normal (applies to non-numeric results) [facility] Abs. Lymphocyte 3.03 x1000/ul 1.20-3.70 Normal (applies to non-n umeric results) [facility] Abs. Monocytes 0.62 x1000/ul 0.14-0.97 Normal (applies to non-nu meric results) [facility] Abs. Eosinophils 0.09 x1000/ul 0.00-0.76 Normal (applie s to non-numeric results) [facility] Abs. Basophils 0.06 x1000/ul 0.00-0.22 Normal (applies to non-n umeric results) [facility] Abs. Immature Gran. 0.02 x1000/ul 0.00-0.02 Normal (appl ies to non-numeric results) [facility] Abs. Nucleated RBCs 0.00 x1000/ul 0.00-0.02 Normal (appl ies to non-numeric results) [facility] The above 24 analytes were performed by [facility] [id number], ,[place] [address] ID Date Data Source [id number] 04/25/2021 05:24:00 PM EDT [facility] Name Value Range Interpretation Code Description Data Arabella rce(s) Supporting Document(s) Lipase 162 IU/L 73-393 Normal (applies to non-numeric resul ts) [facility] The above 1 analytes were performed by [facility] [id number] [facility], ,[place] [address] ID Date Data Source [id number] 04/25/2021 05:24:00 PM EDT [facility] Name Value Range Interpretation Code Description Data Arabella rce(s) Supporting Document(s) Magnesium 2.3 mg/dl 1.6-2.6 Normal (applies to non-numeric resul ts) [facility] The above 1 analytes were performed by [facility] [address] [facility], ,[place] [address] ID Date Data Source [id number] 04/25/2021 05:24:00 PM EDT [facility] Name Value Range Interpretation Code Description Data Arabella rce(s) Supporting Document(s) AST 11 IU/L 15-37 Below low normal [facility] Sulfasalazine and sulfapyridine have the potential to falsely depressAspartate Aminotransferase results. Baseline values before medication administration are recommended. ALT 17 IU/L 13-56 Normal (applies to non-numeric resul ts) [facility] Sulfasalazine and sulfapyridine have the potential to falsely depressAlanine Aminotransferase results. Baseline values before medication administration are recommended. Alkaline Phosphatase 56 mIU/ml 50-136 Normal (applies to non-num madiha results) [facility] Total Bilirubin 0.80 mg/dl 0.20-1.00 Normal (applies to non-numeric results) [facility] Blood Urea Nitrogen 12 mg/dl 7-18 Normal (applies to non-nume ny results) [facility] Creatinine 0.69 mg/dl 0.51-0.95 Normal (applies to non-numeric resul ts) [facility] N-Acetylcysteine (NAC) and Metamizole em ve the potential to falselydepress Creatinine results. Baseline values before medication adminstration are recommended. Patients undergoing treatment with phenindione will have falselydepressed results. Patients on phenindione therapy should be tested with an alternativeCREA method.Toxic levels of acetaminophen may lead to falsely depressed results forpatient samples. Glomerular Filtration Rate >90.00 mL/min/1.73m2 [facility] GFR Reference Ranges:Normal Function or Mild Renal Disease,if clinically at risk:>or= 60Moderately decreased:30 - 59Severely decreased:15 - 29Renal Failure:<15 Please note that the MDRD equation requires an additional adjustment forAfrican-Americans (multiply the GFR result by 1.210).Glomarular Filtration Rate (GFR) is estimated based on the MDRDequation, which assumes a steady state for creatinine (Yaneli Int Med 139/2 137-149, 2003), as recommended by the [facility] in conjunction with the National Institutes of Health and the National KidneyFoundation. The [place] method used in calculating this result is traceable to IDAL standards. Glucose 81 mg/dl 70-110 Normal (applies to non-numeric resul ts) [facility] Sulfasalazine has the potential to false ly depress Glucose results. Sulfapyridine has the potential to falsely elevate Glucose results. Baseline values before medication administration are recommended. Calcium 7.8 mg/dl 8.5-10.1 Below low normal [facility] Total Protein 6.4 g/dl 6.4-8.2 Normal (applies to non-numeric re sults) [facility] Albumin 3.0 g/dl 3.4-5.0 Below low normal [facility] Sodium 140 mEq/L 136-145 Normal (applies to non-numeric resul ts) [facility] Potassium 4.0 mEq/L 3.5-5.1 Normal (applies to non-numeric resul ts) [facility] Chloride 113.0 mEq/L 98.0-107.0 Above high normal [facility] Anion Gap 10.2 [facility] Carbon Dioxide 20.8 mMol/L 21.0-32.0 Below low normal Health system The above 16 analytes were performed by [facility] [id number] [facility], ,[place] [id number] ID Date Data Source [id number] 04/25/2021 05:24:00 PM EDT [facility] Name Value Range Interpretation Code Description Data Arabella rce(s) Supporting Document(s) TSH 28.10 uIU/ml 0.36-3.74 Above high normal [facility] Concentrations of Biotin above 100 ng/mL can potentially result ininterference.The above 1 analytes were performed by [facility] [address] [facility], ,[place] [address] ID Date Data Source [id number] 04/25/2021 05:24:00 PM EDT [facility] Name Value Range Interpretation Code Description Data Arabella rce(s) Supporting Document(s) T4, Free 0.63 ng/dl 0.59-1.61 Normal (applies to non-numeric resul ts) [facility] The above 1 analytes were performed by [facility] [address], ,[place] [address] ID Date Data Source [id number] 04/25/2021 03:04:52 PM EDT [facility] Name Value Range Interpretation Code Description Data Arabella rce(s) Supporting Document(s) Progress Notes [facility] QULOVe7fMbGCXoQr91/PZQzxMVWbx0LvVFfhFIc0NAzhQOPuJ1SiVVA2dB0gCXR9RToPCpRaTyInEJH6 lbm [file] [id number] ID Date Data Source [id number] 04/25/2021 07:30:00 AM EDT [facility] l CT SCAN OF THE ABDOMEN AND [...] rce(s) Supporting Document(s) ID Date Data Source [id number] 04/25/2021 04:43:00 AM EDT [facility] Name Value Range Interpretation Code Description Data Arabella rce(s) Supporting Document(s) COVID-19 NEGATIVE [facility] This lab was ordered by [facility] and reported by [facility]. ID Date Data Source [id number] 04/25/2021 05:04:00 AM EDT [facility] TSYS[facility] [id number] Name Value Range Interpretation Code Description Data Arabella rce(s) Supporting Document(s) COVID-19 NEGATIVE NEGATIVE [facility] Negative results should be treated as pr [...] are for the indentification of SARS-CoV-2 RNA. VhqTHPI-WkG-8 RNA is generally detectable in respiratorysamples during the actue phase of infection. ID Date Data Source [id number] 04/25/2021 01:27:00 AM EDT [facility]SYS[facility] [id number] Name Value Range Interpretation Code Description Data Arabella rce(s) Supporting Document(s) TSH 44.303 uIU/mL 0.358-3.74 H [facility] ID Date Data Source [id number] 04/25/2021 01:24:00 AM EDT [facility] TSYS[facility] [id number] Name Value Range Interpretation Code Description Data Arabella rce(s) Supporting Document(s) LACTIC ACID 0.8 mmol/L 0.4-2.0 [facility] ID Date Data Source [id number] 04/25/2021 01:24:00 AM EDT [facility] TSYSORDER [id number] R [id number] Name Value Range Interpretation Code Description Data Arabella rce(s) Supporting Document(s) C REACTIVE PROTEIN < 0.5 mg/L 0.0-3.0 [facility] ital ID Date Data Source [id number] 04/25/2021 01:24:00 AM EDT [facility] TSYSORDER [id number] R [id number] Name Value Range Interpretation Code Description Data Arabella rce(s) Supporting Document(s) MAGNESIUM 2.3 mg/dL 1.8-2.4 [facility] ID Date Data Source [id number] 04/25/2021 01:24:00 AM EDT [facility] TSYSORDER [id number] R [id number] Name Value Range Interpretation Code Description Data Arabella rce(s) Supporting Document(s) LIPASE 308 U/L 73-393 [facility] ID Date Data Source [id number] 04/25/2021 01:24:00 AM EDT [facility] [id number] R [id number] Name Value Range Interpretation Code Description Data Arabella rce(s) Supporting Document(s) GLUCOSE 93 mg/dL 74-106 [facility] BLOOD UREA NITROGEN 19 mg/dL 7-18 H [facility] ital CREATININE 0.80 mg/dL 0.6-1.0 [facility] SODIUM 137 mmol/L 136-145 [facility] POTASSIUM 5.2 mmol/L 3.5-5.1 H [facility] CHLORIDE 103 mmol/L 98-107 [facility] CO2 23 mmol/L 21-32 [facility] CALCIUM 9.2 mg/dL 8.5-10.1 [facility] ANION GAP 11.0 mmol/L 5-12 [facility] GLOMERULAR FILTRATION RATE 80 mL/min [facility] GFR IS CALCULATED IN mL/min/1.73m2 JUDITH L FUNCTION: >90MILDLY DECREASED: 60-89MILDY TO MODERATELY DECREASED: 45-59 MODERATELY TO SEVERELY DECREASED: 30-44SEVERELY DECREASED: 15-29RENAL FAILURE: <15 AST 28 U/L 15-37 [facility] ALT 24 U/L 12-78 [facility] ALKALINE PHOSPHATASE 70 U/L 46-116 [facility] pital TOTAL BILIRUBIN 0.5 mg/dL 0.2-1.0 [facility] TOTAL PROTEIN 7.9 g/dl 6.4-8.2 [facility] ALBUMIN 3.7 gm/dL 3.4-5.0 [facility] ID Date Data Source [id number] 04/25/2021 12:58:00 AM EDT [facility] TSYSORDER [id number] Name Value Range Interpretation Code Description Data Arabella rce(s) Supporting Document(s) WHITE BLOOD COUNT 9.7 K/mm3 4.0-10.0 [facility]LOOD COUNT 4.28 M/mm3 4.00-5.50 [facility] HEMOGLOBIN 11.1 gm/dL 12.0-16.0 L [facility] HEMATOCRIT 34.7 % 36.0-48.8 L [facility] MEAN CELL VOLUME 81.1 fl 80-96 [facility] MEAN CORPUSCULAR HEMOGLOBIN 25.9 pg 27.0-31.0 L [facility] MEAN CORPUSCULAR HGB CONC 32.0 g/dl 32.0-36.0 [facility] RED CELL DISTRIBUTION WIDTH 15.1 % 10.0-14.5 H [facility] PLATELET COUNT 169 K/mm3 172-450 L [facility] MEAN PLATELET VOLUME 11.9 fl 9.0-13.0 [facility] pital GRAN % 49.6 % 50-80.0 L [facility] IG% 0.1 % 0.0-0.2 [facility] LYMPH % 39.5 % 25.0-50.0 [facility] MONO % 8.5 % 2.0-10.0 [facility] EOS % 1.4 % 0-5.0 [facility] BASO % 0.9 % 0.0-2.0 [facility] GRAN # 4.8 K/mm3 2.0-8.00 [facility] IG# 0.0 K/mm3 0.0-0.2 [facility] LYMPH # 3.8 K/mm3 1.0-5.0 [facility] MONO # 0.8 K/mm3 0.10-1.20 [facility] EOS # 0.1 K/mm3 0.0-0.5 [facility] BASO # 0.1 K/mm3 0.0-0.2 [facility] ID Date Data Source [id number] 04/16/2021 06:48:00 PM EDT [facility] Patient: SIENNA FOSTER Observation Re port - [facility].VisitID: [id number] [place] [address] [phone], FRegistration Date/Time: 04/12/2021 20:14 Weight:74.8 kg (S). [...] rce(s) Supporting Document(s) ID Date Data Source [id number] 04/13/2021 06:12:00 PM EDT [facility] DATE OF EXAMINATION: 04/12/2021 21:05 EDT [...] Name Value Range Interpretation Code Description Data [facility] rce(s) Supporting Document(s) ID Date Data Source [id number] 04/12/2021 10:15:00 PM EDT [facility] TSYSORDER [id number] Name Value Range Interpretation Code Description Data [facility] rce(s) Supporting Document(s) LIPASE 368 U/L 73-393 [facility] ID Date Data Source [id number] 04/12/2021 10:15:00 PM EDT [facility] TSYSORDER [id number] Name Value Range Interpretation Code Description Data [facility] rce(s) Supporting Document(s) GLUCOSE 87 mg/dL 74-106 [facility] BLOOD UREA NITROGEN 19 mg/dL 7-18 H [facility] ital CREATININE 0.82 mg/dL 0.6-1.0 [facility] SODIUM 139 mmol/L 136-145 [facility] POTASSIUM 4.3 mmol/L 3.5-5.1 [facility] CHLORIDE 103 mmol/L 98-107 [facility] CO2 24 mmol/L 21-32 [facility] CALCIUM 9.7 mg/dL 8.5-10.1 [facility] ANION GAP 12.0 mmol/L 5-12 [facility] GLOMERULAR FILTRATION RATE 78 mL/min [facility] GFR IS CALCULATED IN mL/min/1.73m2 JUDITH L FUNCTION: >90MILDLY DECREASED: 60-89MILDY TO MODERATELY DECREASED: 45-59 MODERATELY TO SEVERELY DECREASED: 30-44SEVERELY DECREASED: 15-29RENAL FAILURE: <15 AST 10 U/L 15-37 L [facility] ALT 26 U/L 12-78 [facility] ALKALINE PHOSPHATASE 77 U/L 46-116 [facility] pital TOTAL BILIRUBIN 0.6 mg/dL 0.2-1.0 [facility] TOTAL PROTEIN 8.5 g/dl 6.4-8.2 H [facility] ALBUMIN 4.0 gm/dL 3.4-5.0 [facility] ID Date Data Source [id number] 04/12/2021 10:13:00 PM EDT [facility] [id number] Name Value Range Interpretation Code Description Data Arabella rce(s) Supporting Document(s) HCG,SERUM NEGATIVE NEGATIVE [facility] False negative results may occur when th e levels of hCG arebelow the sensitivity level of the test. If isstill suspected, a first morning urine specimen should becollected 48hrs later.This test has a sensitivity of 10mIU/mL in serum lrb16rKH/mL in urine. ID Date Data Source [id number] 04/12/2021 09:56:00 PM EDT [facility] TSYSORDER [id number] Name Value Range Interpretation Code Description Data Arabella rce(s) Supporting Document(s) WHITE BLOOD COUNT 10.7 K/mm3 4.0-10.0 H [facility] jay RED BLOOD COUNT 4.20 M/mm3 4.00-5.50 [facility] HEMOGLOBIN 11.1 gm/dL 12.0-16.0 L [facility] HEMATOCRIT 33.5 % 36.0-48.8 L [facility] MEAN CELL VOLUME 79.8 fl 80-96 L [facility] MEAN CORPUSCULAR HEMOGLOBIN 26.4 pg 27.0-31.0 L [facility] MEAN CORPUSCULAR HGB CONC 33.1 g/dl 32.0-36.0 [facility] RED CELL DISTRIBUTION WIDTH 15.7 % 10.0-14.5 H [facility] PLATELET COUNT 358 K/mm3 172-450 [facility] MEAN PLATELET VOLUME 10.7 fl 9.0-13.0 [facility] pital GRAN % 62.7 % 50-80.0 [facility] IG% 0.2 % 0.0-0.2 [facility] LYMPH % 27.7 % 25.0-50.0 [facility] MONO % 8.4 % 2.0-10.0 [facility] EOS % 0.5 % 0-5.0 [facility] BASO % 0.5 % 0.0-2.0 [facility] GRAN # 6.7 K/mm3 2.0-8.00 [facility] IG# 0.0 K/mm3 0.0-0.2 [facility] LYMPH # 3.0 K/mm3 1.0-5.0 [facility] MONO # 0.9 K/mm3 0.10-1.20 [facility] EOS # 0.1 K/mm3 0.0-0.5 [facility] BASO # 0.1 K/mm3 0.0-0.2 [facility] ID Date Data Source [id number] 04/12/2021 09:16:00 PM EDT [facility] spital TSYSORDER [id number] Name Value Range Interpretation Code Description Data Arabella rce(s) Supporting Document(s) URINE RBC 1-3 /hpf 0-3 [facility] URINE WBC 0-2 /hpf 0-5 H [facility] URINE EPITHELIAL CELLS 1+ /hpf 0 [facility] ospital URINE BACTERIA 3+ NONE SEEN H [facility] ID Date Data Source [id number] 04/12/2021 09:15:00 PM EDT [facility] ital TSYSORDER [id number] Name Value Range Interpretation Code Description Data Arabella rce(s) Supporting Document(s) URINE COLOR. YELLOW [facility] URINE APPEARANCE CLEAR [facility] GLUCOSE (UA) NEGATIVE mg/dL NEGATIVE [facility] URINE BILIRUBIN NEGATIVE NEGATIVE [facility] URINE KETONE NEGATIVE mg/dL NEGATIVE [facility] SPECIFIC GRAVITY,URINE 1.020 1.005-1.030 [facility] URINE BLOOD TRACE NEGATIVE H [facility] PH,URINE 5.5 5.0-9.0 [facility] URINE PROTEIN NEGATIVE mg/dL NEGATIVE [facility] UR[facility] UROBILINOGEN NORMAL(0.2-1) mg/dL 0-1 R [facility] URINE NITRATE NEGATIVE NEGATIVE [facility] URINE LEUKOCYTE ESTERASE NEGATIVE NEGATIVE [facility] ID Date Data Source [id number] 04/02/2021 12:00:00 AM EDT [facility] Name Value Range Interpretation Code Description Data Arabella rce(s) Supporting Document(s) SARS-CoV-2 NEGATIVE [facility] This lab was ordered by [facility] and reported by [employer]. ID Date Data Source [id number] 04/02/2021 12:00:00 AM EDT [facility]) Name Value Range Interpretation Code Description Data Arabella rce(s) Supporting Document(s) SARS-CoV-2 (COVID-19) RNA [Presence] in Respiratory specimen by MELINDA with probe detection negative negative Sars-cov-2 [facility] ([facility]) ID Date Data Source [id number] 04/02/2021 12:00:00 AM EDT [facility] ([facility]) Name Value Range Interpretation Code Description Data Arabella rce(s) Supporting Document(s) ID Date Data Source [id number] 03/31/2021 07:42:12 PM EDT [facility] Name Value Range Interpretation Code Description Data Arabella rce(s) Supporting Document(s) Discharge Summary [facility] [id number]/LXKaxVBBqz7MbMAjxDLb1YCinQMPaU8MeFLE5bK7qUFG5MIfNNqJeWtQfUTTa lbm [file] ICAgICAgICAgICAgICAgICAgICAgICAgICAgICAgIC LkUODeSOCaYATnNUAjEWAhWAAwIG0KBISgEVEfLZHjOHCgTDTaQAYeGGOsPSNhVMQcYMUeQZYqZREmQV AgICAgICAgICAgICAgICAgICAgICAgICAgICAgICAgICAgICAgICAgICAgICAgICAgICAgICAgICAgIC EoUL0NWMYgLCNvARMpNXOyEMSuIGTfTCLeQOGzNRXf ICAgICAgICAgICAgICAgICAgICAgICAgICAgICAgICAgICAgICAgICAgICAgICAgICAgICAgICAgICAg ITWqMMHfSIEnUYRhFH5GDDBdBEPlMBKgLIWaNWHmDVLcMYGpFFBvAUBmSKLyGEQbCXDhWHQuTYZbZFTf ICAgICAgICAgICAgICAgICAgICAgICAgICAgICAgIC UlVRRpRCAzVRTcIBTlKOHdIMQuYQBfSN5PACLbAAGwWJUqQWFkELXqKDDfZUJaHAGmFELfTDLkWITyDA AgICAgICAgICAgICAgICAgICAgICAgICAgICAgICAgICAgICAgICAgICAgICAgICAgICAgICAgICAgIC LqZTSeCH0TUPWyKBWyGXUnXMYhMVPpKPDiYODmWIYj ICAgICAgICAgICAgICAgICAgICAgICAgICAgICAgICAgICAgICAgICAgICAgICAgICAgICAgICAgICAg JOUoIARcEQMgUOEtMAMdYG3TWTRsGQWnHAEuWGSrJOOzGVLyQOGdLPDiDYCuTWOnRYUjJXZgKQDuVBGr ICAgICAgICAgICAgICAgICAgICAgICAgICAgICAgIC UiPVJlIEPkBFRiQVHuIWKhHRJhSNRfBQYuRE6EGIOnZGToJEJfAQUrMMAhVWNpRSFsTVYzMNDjIBRvHU AgICAgICAgICAgICAgICAgICAgICAgICAgICAgICAgICAgICAgICAgICAgICAgICAgICAgICAgICAgIC FrWOKjVOAtYE6BUAFnLYEySDHoEHSyIAZyLUKqXKYj ICAgICAgICAgICAgICAgICAgICAgICAgICAgICAgICAgICAgICAgICAgICAgICAgICAgICAgICAgICAg WRNoPWJaJOPaOQUrQRWpOKTpNI4BNFFjTIFmLOVtCMQiMXZrUZIsZUQnNQJgBILfJRWhFUTvTLAuIDVu ICAgICAgICAgICAgICAgICAgICAgICAgICAgICAgIC DtDNUzYGSbNDEyUXJqIEJdOXTtMECbAKVlBOBtQL8BSL06iLRip6D7UXMaRU5sdvw/Ds5HDIsmtmPywJ RmVN7GXqUgCM7uzv5JRdIpRF0bob8MNTxKXjGqI7V0tAXrTRUmZRBUJaSbU42qRXacOg55MCwpIXXzMe XvKEh4Jj5YFsAsU9pcICSnZjI7WFYvBwD2LCRiRgV6 RXJnIeFdOYClYKQpUPCmLSHGNYL6HDKeXbVkCKaoHQ1Zb7WxvYJ3CHi+Ng3AAU1cv5LtBPj3MnKpOQ3c fe5OMGqQYmBsH5GrlxN3QXC0JYMcYp9EDKZaJSUnzLK7XfWkCDKRTzYnF6NkmQ91LOKGHb7+DQplbmRv WhtEGwT1CQAgr2XlZIl9MW7ZVZEzMQm9tCMmLKfdU2 ekntxpOAH8oH0ivjwoQmjoMMM0veIwUJLIk16hn33fJH1GZLT2ZYwoPTvaNrDcHWWzAIkxILTMUOiACp QaU5Bie2VoGbJ8RURwKcSbTJbkAHTfTtF3IS02lKtvBZ5DIEQhZDQzMJ07MQL2ZCOeCs8ARm2YKjUgER 4njs6OEXfkXDCaIjjWAml1RTxjTJ5UtIMnR5JgySIk x4jTJtDsU7OATVU1HJZnBa7RBPMsSjRiZYLyDGgrFQ2oBPPsLMOKiLnnenD5QB5HEF4jvuQmUJ0MBaOe Qk6rBq6DAxHzY2IaO1KwKCHsHVVXJTzlMR4NTZrmWK7sFV6Ba3HWmZNmlS9wts1HTBJfFQWxGuissi1I YdsnZ6E8kZqzZMEyMDSjQQSRDTvdPH0TXIAwSBS0WE N7VHXtMQGIFsWdQ25vQX4LN7Ofn91pNoH9GFGsAuCsIKewIV33nIsnqkLbrKPwsVpiVF1FKm4+DQplbm CnAauSLzpxSUBNGtWsTZuUPqDvRMFbHCXfUQDpFsO5TxRjJa6XSPGfRLWfUIIdSpUlLYOxNBIjLMzdVF LfCZVzHVV1YPVxRXKmBQ1TQhOzBOQqEHP6HWnbAXDm PGFysu1YVWRvHKWyBIS9CiDnUQRiYMAzFKmrAFUpDWAnDMV6GRTpUEYiGN9SLeDzOCCeBEPqUWdaUZSg KMSbsz5FWHBdYTMiPjs6URDnRMCtRRGlLXbpOHTyWWD2DOUqLYDqTVCcKP3TLrWaDQCqMTqjGUIlXJTr TRNrsq1CKDBvNMGmUUQaVlEuSXEpSSSpKEomMONdVB LnCJJyDELnICVnWC7RHjGtSKGnTHB4EnxrSCWiVXCrrv4FBBTpVSNdQCM1TlRuTNArCRFxTLktJFWzVJ A5Bfp8OXUyFDJpBW9GPqPlMYXvDAD3XnVrKREiUHSive4WBWPuKTGgSSS8RaQiANYwVXWyLXppOCEyIR S6NFF5FGMrUGVnBN8FPtHdULKtHQIfLkswFMUvTALy gb2OZYRdUVMpJdAuQVGqIPHhQQQdSJkiOJOcFVB5Gjc7BPOzSPDdYC8HOdMcKQDiZLl4NLUiSJSxLCRy mt5EOCJfIGJaQtq9HVGfZROaMTQmJJjrQUIeETDySOK6YUTpCMKqKF0KWvCsSOTcPpZ5WrZeYALjGTWw za8FUGIyXVYyBHQmTEQbRCXiBJYlWFjxCWBlMIJhAQ p3QKMtVPDiGT6SAeDhPGEiJsSqDmKnPBZeXCFouz5EHYSxCQJbOKd6CFToEUZhJQIySCvsCRJxNQAiFN U2YSQqSFSbSU1CKgHvHBFbMmPuGezfPZUrUFRizl8RFLEiNIXjRjA8LAKuDIYeFANzCHfhWQPqUBZqVB A0JMBaDHJwBL3BMgFsQGQoFdD2WxdzPWAdANZxkj3L QHFyRBEgIMX2HYIyFSBpEELvKVmfMSQwBIW0YnY9OYMqZUVkAL6RStKeBZJbAlP3EjxeJWNeRGFylx6J GKIzRUXiTKs8VbWhOULwJHBqDMiyWLNuDCGhFKCvPCOtBARcEJ9GLhFbDCJiQDNaZvYkKFNbENCvnw3S FTDkUKQ1BBY6VsCbLTOzSPUlGJeoRFAqABLwJoJyZX ImPLRmKW4RHdRcSBVjGVL5VOJkVPVwQTKnsj4AUCPcFJA7PIj4MSViLPLjILIdGCwsLUSwYJXpHDN7FO YeSXXyAU5JAfGzRUKvUUR4YAfjIWVuMCEixi7CKIFnRTM6Sgx3NOQySYIwXICeYJfkGOFlUBZ4RGU3EO WyFQWpVJ5JZvRaKKRxBFAnWXXnYTAnCOKuae5WhPCz dMzlpj2SFVyUIa8DxFmtKHZ6RFqsBm3upGV4IWKhKGPUNm9SviOeLNBlFWBUBWqmIUOgBCg6VLYyPVAe WyGpZqBlYhJvZ7MsVag6QXTcRCRoVZsvVfU7IajfYTUwXVDbCUUwROUuHvB4BfStDfQ3XVBhVQVjDMU+ FJ6zSNk+Pa1Pa3AldaO4kiGaJNj2LKZ9OT1HOMFUB9EBQv== ID Date Data Source [id number] 03/27/2021 08:58:00 PM EDT [facility] Name Value Range Interpretation Code Description Data Arabella rce(s) Supporting Document(s) Nursing Note [facility] GOTHLs9bXrYQErMf10/XEAsdMSNqq9GrRSgmWRa3KWpmLRQbG1WySJT2hU4nZVG1MHdKFlNoZqJtVZU9 lbm [file] [id number] ID Date Data Source [id number] 03/27/2021 08:57:40 PM EDT [facility] Name Value Range Interpretation Code Description Data Arabella rce(s) Supporting Document(s) Care Plan [facility] EDNOCf7tZiJFUcFz80/NUKvpGQSdj2ByJIjvAOu0JViqFAJkE3UtDUN1gC1hGJP9QXwICcZpNnBnNWW8 lbm [file] GbSS7GFn0ZDoA0XNV6rBTjCl9IMdXwVHFTIyBsMJ1UIJj= ID Date Data Source [id number] 03/27/2021 11:56:07 AM EDT [facility] Name Value Range Interpretation Code Description Data Arabella rce(s) Supporting Document(s) Nursing Note [facility] WGSKBa7gJhOOGpWt76/ASHklCCApk1QbGMvuVZw8IWywFNVpU7TbPTM2hG9zXTN3ZYiFVoHhXkTmQBO2 lbm [file] latex caster/VbYra/59OfRH7koyx8muXIPwJWN3TTsYvv5t4mRvhiv/BvRC0+a9ig61rv8rUc8xk8cM/DPMscSF [file] 9GDQo= ID Date Data Source [id number] 03/27/2021 10:35:44 AM EDT [facility] Name Value Range Interpretation Code Description Data Arabella rce(s) Supporting Document(s) Perioperative Nursing Note Health system JBNQKz6pNfRDTiTo61/ZCZqfLIMbg1JeOOxpVTq7PSqeGDYcM0WmUDG5xU3rZFC7HGwGVjOpTeJuJSN1 lbm WhCiyUItNqUTEvGhaOIrRfXBziCavpoXVkQI4VjCB4AIDaJ65fYACdPUOmV1JcRWd4KA1+ISrcWSK7jr UmbY0MMGMXN3ni0kDCaR+wf+NtYlNHXUn8HURJlqlWQUUvpb/TLPYzh3cObCKYOscUD1te7CUIlSiqRv gu5sTK46tLLdxS1e7qkTZWVCGd//AoFIPpEt6+gcrN Syp83fEnSrhIpDWROjwPo32VlVBgBOI5zKKV3HbygFtQJNRgQL9zeRTPucm2IOKlE9NgHWBGFSNrZzq9 QDjTeSFKEuunlKM+ShXU158gKCglrObxMc5bZnl7IZ0fdDXfIYb1IMpimizT2rj2zyhUoW3kF62gb1Vw RQvIt2+Mvm/pIg3Bg3TEnvGcOo+cY+oDhlIWT0Lpsf UI3w1wduj6aQDhDGxEqCE6FmdaxZLtTbDZLQFEP4UZ18rm1OEg6u6gPreYIl+ShZGMq9mlX1kePG6FoJ pXnLe1FUmcth3medFtIT7uEWU8DS/xizuUQ7TmsQSD2n8uYNQlCk3a8Gos3M99e849BBfqeKCMgfHynl XiIg4mTIekdhA/fyK2ZUdPkaOTEUaBDTQt4qla7OCd REYES+jGJ4nPZk5d8dT4ikOaP0K4Ig7H7kLvgtR1f4S1M0fzw3QtBZ/Y4tYB9ppkrCKuoLdl26EQLY+Lt3E [file] AKQaKzPhT9KAbkJUMNNa8A ID Date Data Source [id number] 03/27/2021 10:29:41 AM EDT [facility] Name Value Range Interpretation Code Description Data Arabella rce(s) Supporting Document(s) Perioperative Nursing Note Health system EMTMUj3dYuNWJrYk77/UMWhxGCAvc1IiGLjcZRo7KLbrOYAgW9WqWFR5gU2mWKN6OVcZDzVuUwYwXTU6 lbm [file] UtQhRX3YFGk= ID Date Data Source [id number] 03/27/2021 10:29:01 AM EDT [facility] Name Value Range Interpretation Code Description Data Arabella rce(s) Supporting Document(s) Anesthesia Postprocedure Evaluation [facility] MQMOBm8rArDCPbSr91/BTCtyCOTzy5SqNFgrLDu9XXqeRAMfB7HoREJ2fM1iAOG7HKvRCnNpOzOsUME5 lbm [file] [employer]+lWA0pePx1OWucQr7Tdi5yKxd3e1hR/CnX9wav6zpU6M4uNs1IXc3pVZ5K80jJU/JFxih6QxpAF+NE q8qUhPWuz5KWLEFp8km7GJCzjvm/2naHvGzoRWY90s pUANlqqusmOU85GkAhwfusIjuXQf2n5Wo70gQT6hgYXi+/1ufL8Lkg5QbF8BPwW6nGi4wLEVHyks0s8z Ips5mNT5iWKulgy64OZrB9OdlEf1Pk1ygE84uDV6zu2mo5ZuqkYjkN4sjVMqDxSPVTK/Blh3xEPWuP0G X5eDl303vSC2tRYN4YrjpOYcK7iHfzjsWiJg4cWGTB 0yH5wYkrWhJoIsbJV05T1fIBlUx/6xU1sTzM1kEit3ccEZbCWpe+QWjGPWw6/CEArcq3ztTxB+5Mx96G R05dBXSlXwH98d5bObouuxIeF9XnQPU6EkKzXdfSLLkiJifvaWYhebUtdkkNUY3ki69F0ku46gW5D0Fh IZK8Yrg2cDU+o85DKo6uFdNoP4HornlOcnojNWdK8q tQNBnbeYwgJidV3nCtU1ntwF1Q13K61WX2mn5x1sWO4bc4ab1MCDOuF9S3RS6jQkMXYAwg2d46PbU8IO 8zTa3majE8lXia+3dLl595XlMsZX/SHwxFM0+NxdAqyGr6zhtTs5qNIWVg2X3oKQigEV71plPpJpUEw4 7ardngUNUgIbzN4JRJ11Co/vlad/rVzYTRoSG7dnbgA [file] Rg0K ID Date Data Source [id number] 03/27/2021 10:28:51 AM EDT [facility] Name Value Range Interpretation Code Description Data Arabella rce(s) Supporting Document(s) Procedures [facility] XYABBm5oRpUQDzVp24/PAHwlTEYur5InVObgNZy0BHkzJWUqQ0DnKGR8dC2hIYR0RHxOHvDvMaOwYTI3 lbm [file] ZdXRS9MVJeQJR6ZZIiRZJtCmRdXQ3VWn0IZvV3RHI8lSAkRe6JWdAmMdEINeTdAT4BDBo= ID Date Data Source [id number] 03/28/2021 09:48:00 AM EDT [facility] [address] [place] [address] [facility] PATHOLOGY CLIA# [id number] Surgical Pathology ReportPATIENT: ANJEL FOSTERANDA CASE NUMBER:[id number] #: [id number] Date Collected:03/27/2021ccount #: [id number] Date Received:03/27/2021OB: 1980 Age: 40 y.o. Date Reported:03/28/2021ex: FLocation: [id number] Attending Physician:JUVE TRAYLORlinical Information: RULE OUT MICROSCOPIC COLITISSpecimen: A. RANDOM [...] cassette. AP/jarodk Electronically SignedBy:ICD: R89.7x2 Wai Castañeda, MDCPT: [id number] PathologistI ATTEST THAT THE ABOVE DIAGNOSIS IS BASED UPON MY PERSONAL MICROSCOPIC EXAMINATION OF THE SLIDES (AND/OR OTHER MATERIAL), AND THAT I HAVE REVIEWED AND APPROVED THIS REPORT.PERFORMED AT: [facility] [address] [place], [place] [address]THE TECHNICAL COMPONENT WAS PERFORMED AT [facility], [address] [place] [address].PATTERN ILLUSTRATOR: WAI CASTAEÑDA M.D. [facility]# [id number].SIENNA FOSTER Page 1 of 1 Name Value Range Interpretation Code Description Data Arabella rce(s) Supporting Document(s) ID Date Data Source [id number] 03/27/2021 09:15:49 AM EDT [facility] Name Value Range Interpretation Code Description Data Arabella rce(s) Supporting Document(s) Anesthesia Preprocedure Evaluation [facility] LJDYZm0yPiWAAzId62/DURgcWDXzp9YgEVctHVa7LLhfJWTxH2NrGPV4kS2lKAB8YUdECnJxYxRfNKF2 lbm [file] 1N2fmv1Z+e1EiuGo9QBf24MAMJIyZv17mn51A4+devops architect [file] ICAgICAgICAgICAgICAgICAgICAgICAgICAgICAgICAgICAgICAgICAgICAgICAgICAgICAgICAgICAg ICAgICAgICAgICAgICAgICAgICAgICAgICAgICAgICAgICAgDQogICAgICAgICAgICAgICAgICAgICAg ICAgICAgICAgICAgICAgICAgICAgICAgICAgICAgIC AgICAgICAgICAgICAgICAgICAgICAgICAgICAgICAgICAgICAgICAgICAgICAgDQogICAgICAgICAgIC AgICAgICAgICAgICAgICAgICAgICAgICAgICAgICAgICAgICAgICAgICAgICAgICAgICAgICAgICAgIC AgICAgICAgICAgICAgICAgICAgICAgICAgICAgDQog ICAgICAgICAgICAgICAgICAgICAgICAgICAgICAgICAgICAgICAgICAgICAgICAgICAgICAgICAgICAg ICAgICAgICAgICAgICAgICAgICAgICAgICAgICAgICAgICAgICAgDQogICAgICAgICAgICAgICAgICAg ICAgICAgICAgICAgICAgICAgICAgICAgICAgICAgIC AgICAgICAgICAgICAgICAgICAgICAgICAgICAgICAgICAgICAgICAgICAgICAgICAgDQogICAgICAgIC AgICAgICAgICAgICAgICAgICAgICAgICAgICAgICAgICAgICAgICAgICAgICAgICAgICAgICAgICAgIC AgICAgICAgICAgICAgICAgICAgICAgICAgICAgICAg DQogICAgICAgICAgICAgICAgICAgICAgICAgICAgICAgICAgICAgICAgICAgICAgICAgICAgICAgICAg ICAgICAgICAgICAgICAgICAgICAgICAgICAgICAgICAgICAgICAgICAgDQogICAgICAgICAgICAgICAg ICAgICAgICAgICAgICAgICAgICAgICAgICAgICAgIC AgICAgICAgICAgICAgICAgICAgICAgICAgICAgICAgICAgICAgICAgICAgICAgICAgICAgDQogICAgIC AgICAgICAgICAgICAgICAgICAgICAgICAgICAgICAgICAgICAgICAgICAgICAgICAgICAgICAgICAgIC AgICAgICAgICAgICAgICAgICAgICAgICAgICAgICAg ICAgDQogICAgICAgICAgICAgICAgICAgICAgICAgICAgICAgICAgICAgICAgICAgICAgICAgICAgICAg SJEeIOQoUOZgYBSsTOEoQQEwUJFmZKBiBDRnHYCmGJPhMEBfMSLjAQAoOHEmGKi5Q2ufXCAoHVLjLK8p IPj9Ru9+HMbFTxNoQRH3faPdlX8HYB1he0VrWJyiUW Nhd4McSNo0OM4HKCFjTJfsRZ5QEFnqcn3SJPDdQJCuyEDCr5diMyNzDTF2JMClGtskGT4XVKCdC8nhri TxAEVvQUCUMLldACFERI0VVeHnN0ApsY98IFAMPm8+CFexolWpPcyBOpD5PDOnw0IsBVm4SM7LTNRrLf oaz5OxQxmqWSUMPKzaJX3HENU2XXS3KZQgYj5CCVQg X922pbJcKF2PSt0QXsQvIV7jzz6XIchwMJVfXfnNPkw3MRncSY0KsRTlBBqXrhOjaCfhx9zpLJMgTYZx k0QrMQDnSRHZhfGofOA5pG9kDKS7XBJtDEWzDWUfBxQsXS8kyjfuYYWoVIPhVV8lFA5nHGJlKVK8QbZa YTDEGA3FIQZiGHZalTPxLQBtQUSXWT3GVMdbJGD1Up ipzoFrzGWqWOxdRX1DJYZdfvVjQbnpDOFOAIf+Yp3GCY8jo1VtTEgnZRAlLX3zim8JPAcNLlKuX9W4hD BvL2H2AOcaAr8ZYXDhIUQdSuLnPZFREItuUE6YZE7nrlM2PZ4ZaVFhSIVoBLEmpNLjBNv4Q25koVVaFR trUJ2JQYS+Mau+Xq6RLJWmLGYwVRKyNcHpDCOCQoIq E3DxR4UAo5BtQ6JwXJ06tEorlpHmFRueCZ6MKB7aUOZpIZQQRZ8KlJMciD1fgyIxGwZfLTATHgUhN56y wSUxECIgENF0SQUiHk6QIFIbN1OdpoDjpIraxpVgCXUtZAANFV0JADapfzFhdFWkwGpuIL25lUlnJZ2V Bv2MRaXiHV8jbn8EwDQfTc6AFJDwNT3NOXGsLGOtHJ EoIMC9RLTfDkUzPWltZGQcNORcUCK5NLDaOPBgMC2XEfWeVLWuBtB5DldhPFJyZCDqro0PWTKgKXMxAa U7NBBvELXyOSKhOFjbIBAnNMMzTQY2VCNwALPaUK7SUmIeWKXnBVGjGTxuTUPtPDYssp5OEVEqXQQlEe OqHgAdCCYsTJDnMFzcXVGeLLQrSRK6QZOvUANhJP8A JrYtHPYuBTKlJSHtAFNaIBFkfm9YKYApRJUhQXYbITJhUBNcIGKwMBxxZQNsOMR8CvK9TCYxWDPnXI1V GcWnJVOoIPM7OREeBJRsWDGnuo5CIPHsSFXlQDK7VGRnESJwSYNqLDxaOANoIEH9KeQeUFOfNNHxMF4A JzAjYWGfJUH4WiVuXYGtQNXmxg7LKDDfFEPmYYQ7OE TmQUCpJMUiXGthSBDqDQB2JGKrFLVtFLDdFZ1WVkJkFFVxNXy5UKocVLAbTBOyso0RVFEkHSHcJBm3UF HeJAPqCNUsWUxfTZXiGSY0LJq8WMZcSTAmHF2XTdDsXGBoWoMmEkqoSZAaWSOyfu4MWRFgYAKrJWEwVz UiJTAuRZUdRQijUTKtSITdXfk6GAPxKQMmYL0HCwKf RNHxEdTzEphaIVEbRRQgum9WAJSvDAYuJMJrBTUtWYIuBOOuAEtmSZChIYZjLhP0LMPoBUPzUI4NCzCd OVKaYiDoJEPhPTOhJVGzxd4ETPLkSRNhIyW7YAWiIBCxRZLvISrrDXIsVUAaHnP2NBAkSLXbGM8UKbZg NNMxDrV0AdHmERGiEVRgro6QaODufSktiy5BWLoCGu 0OxAatHROxNJyqYa5itLLtVTHtSVSDJx0QqbDfPIPoOBBJQJtlMURoQXJ0DCO6KZM7OKXwOHRjSCllIN loZSv4RKSpUMKhHOKjPhX0DJRkFSczTzQ4QoN4LCG1SYD8PNDeMNbnEXHlR6D1KcO+ND5gZZq+Pg0Kc3 XznbX7niPtLMqmIUM1SZ0LENWDP8MPOy== ID Date Data Source [id number] 03/27/2021 01:32:01 AM EDT [facility] Name Value Range Interpretation Code Description Data Arabella rce(s) Supporting Document(s) Nursing Note [facility] ETAEYx1sEkJBPdAg41/THDbwWHXsd7XqEJiiMKp7WTgjTJGqD5WyTFE7wG0pSDU3XWmYUcMuFtFfEGL5 lbm [file] V9VSTmSUM4NaH8OMU3SIdsBcLkXZ0XOu3ZZlK8IVK6mZZnAo0OAgoxYC6JNMNHY8SWFv== ID Date Data Source [id number] 03/27/2021 01:30:51 AM EDT [facility] Name Value Range Interpretation Code Description Data Arabella rce(s) Supporting Document(s) Care Plan [facility] LSNACe0xRwLJMhHp53/GBIfbXRAiz9EqMZgdVVn3XVptETQzG3SrUIR3oY7kAUQ2TOjGVdJoQiQuUNO5 lbm [file] CwLwxyTUOdKRF2BGm8AIwpXkuvY7NrXZn+KC6uNFc+Gr6Pn4OnteL3pfUsRKx7HMb6HZlbPLBFJc6F ID Date Data Source [id number] 03/26/2021 06:10:50 PM EDT [facility] Name Value Range Interpretation Code Description Data Arabella rce(s) Supporting Document(s) Nursing Note [facility] RSUBWv1bGhLJHzLo14/DIMbkPXVtp9ZjHJpnKRp9JSrlDEWmE0UjMUP9nB6dTXX6CMiGMtJpMmJnINP1 lbm [file] sfAPGKDh3Z ID Date Data Source [id number] 03/26/2021 06:01:18 PM EDT [facility] Name Value Range Interpretation Code Description Data Arabella rce(s) Supporting Document(s) Progress Notes [facility] LOTIIw7pHgOVLzLj65/DJRcyPRTjd7UaSKfgJAm3EAmnPLEmT5CfKKN9eV7iPYO5FGkLKjFgUvSkPXJ8 lbm [file] C7RBO0WWluEXUENm1D ID Date Data Source [id number] 03/31/2021 04:38:00 PM EDT [facility] Name Value Range Interpretation Code Description Data Arabella rce(s) Supporting Document(s) Calprotectin, F <16 mcg/g <=50.0 (Normal) Normal (applies to non-numeric results) [facility] Test Performed by:[facility] [place] [id number] Director: Rashawn Vides M.D. Ph.D.; CLIA# [id number] above 1 analytes were performed by [facility] ([id number]) ID Date Data Source [id number] 03/27/2021 11:30:00 AM EDT [facility] Name Value Range Interpretation Code Description Data Arabella rce(s) Supporting Document(s) Campylobacter Not Detected Not Detected Normal (applies to non-nume ny results) [facility] Norovirus Not Detected Not Detected Normal (applies to non-numeric r esults) [facility] Rotavirus Not Detected Not Detected Normal (applies to non-numeric r esults) [facility] Salmonella Not Detected Not Detected Normal (applies to non-numeric r esults) [facility] Shiga Toxin 1 Not Detected Not Detected Normal (applies to non-nume ny results) [facility] Shiga Toxin 2 Not Detected Not Detected Normal (applies to non-nume ny results) [facility] Shigella Not Detected Not Detected Normal (applies to non-numeric r esults) [facility] Vibrio Not Detected Not Detected Normal (applies to non-numeric r esults) [facility] Y. enterocolitica Not Detected Not Detected Normal (applie s to non-numeric results) [facility] Enteric Pathogen Panel:Testing performed by reverse business education instructor, PCR and array hybridization.A negative test result does not rule out the presence of diseaseThe above 9 analytes were performed by [facility] [address], ,[place] [address] ID Date Data Source [id number] 03/26/2021 02:23:09 PM EDT [facility] Name Value Range Interpretation Code Description Data Arabella rce(s) Supporting Document(s) Progress Notes [facility] JECMLu2oPtQLUcWk66/KYHnqVANed6GdMQxlQBi8UWqkDNPlO4EnZKA9nE9jPQI8EUnMEmOjYpCxEZG5 m [file] YxReEdH1QWyeQZT9BDSzBKTbPpz+DX7fLDa+Rk5Ax7BvocS3hxApTHjjPgJ4Hs6XFDMOU6SEBu== ID Date Data Source [id number] 03/26/2021 12:38:41 PM EDT [facility] Name Value Range Interpretation Code Description Data Arabella rce(s) Supporting Document(s) Care Plan [facility] UUHQTh4tHpZTFfIa45/FSGvsONOhy3UoBGkxUPw8BBvgGNDcE0ApPAX1rT4pVQL0FQhZPuTeLdAoMJF8 lbm [file] josé miguel/VnCugzHbVNoTqN+zvRIzDPfwWyt8qdVc1EdAgnGbuiDP94XS0T0oK9FkCAiJ7CA9RHBdKg5cB5/5 [file] bottoming room inspector+yRyvyEmDcbF71L8o6Kf3HO/A52yMGgQJ3SLbY9Fa6Rg979BGctd6dxxeb/0L/Zl6BCKbf3cpPg/l [file] AgICAgICAgICAgICAgICAgICAgICAgICAgICAgICAgICAgICAgICAgICAgICAgICAgICAgICAgICAgIC AgICAgICAgICAgICAgICAgICAgICAgICAgDQogICAg ICAgICAgICAgICAgICAgICAgICAgICAgICAgICAgICAgICAgICAgICAgICAgICAgICAgICAgICAgICAg ICAgICAgICAgICAgICAgICAgICAgICAgICAgICAgICAgICAgDQogICAgICAgICAgICAgICAgICAgICAg ICAgICAgICAgICAgICAgICAgICAgICAgICAgICAgIC AgICAgICAgICAgICAgICAgICAgICAgICAgICAgICAgICAgICAgICAgICAgICAgDQogICAgICAgICAgIC AgICAgICAgICAgICAgICAgICAgICAgICAgICAgICAgICAgICAgICAgICAgICAgICAgICAgICAgICAgIC AgICAgICAgICAgICAgICAgICAgICAgICAgICAgDQog ICAgICAgICAgICAgICAgICAgICAgICAgICAgICAgICAgICAgICAgICAgICAgICAgICAgICAgICAgICAg ICAgICAgICAgICAgICAgICAgICAgICAgICAgICAgICAgICAgICAgDQogICAgICAgICAgICAgICAgICAg ICAgICAgICAgICAgICAgICAgICAgICAgICAgICAgIC AgICAgICAgICAgICAgICAgICAgICAgICAgICAgICAgICAgICAgICAgICAgICAgICAgDQogICAgICAgIC AgICAgICAgICAgICAgICAgICAgICAgICAgICAgICAgICAgICAgICAgICAgICAgICAgICAgICAgICAgIC AgICAgICAgICAgICAgICAgICAgICAgICAgICAgICAg DQogICAgICAgICAgICAgICAgICAgICAgICAgICAgICAgICAgICAgICAgICAgICAgICAgICAgICAgICAg ICAgICAgICAgICAgICAgICAgICAgICAgICAgICAgICAgICAgICAgICAgDQogICAgICAgICAgICAgICAg ICAgICAgICAgICAgICAgICAgICAgICAgICAgICAgIC AgICAgICAgICAgICAgICAgICAgICAgICAgICAgICAgICAgICAgICAgICAgICAgICAgICAgDQogICAgIC AgICAgICAgICAgICAgICAgICAgICAgICAgICAgICAgICAgICAgICAgICAgICAgICAgICAgICAgICAgIC AgICAgICAgICAgICAgICAgICAgICAgICAgICAgICAg KUZlFEy6E4cxYTRsDGMeTB5qHMe6Oj0+SMlFPnTzMXD4srPcpZ0URE7xq0HuJJmsNSVat8GlFAf0IO3L OXUnYJqtGP8ZWCmvzu7WJSTtKSLthSSZu3wcXjRpSMB7MXRxZxwgRU1RKOSrH2zgclOqFIInPBYHREia GPQJMX6MVmXkS0GcwB68CVCOTy7+DQplbmRvYmoNCj Z0YXIwe2BxXCy3XG1LTBZmKmtoc8NkTpzrKEGLEYcmRR6PBWM0MUO2LBKgCq2VZAQaV216cyRnTM6SZm 5KWoLpTL5fuu1CPfmvJAGgAbjRTmg4DZeeHH3OqYIcNQrXNAZyFNEzNQ0oTjjlS5Als0BrnyPvPZTUjm 3pNWOeOXQAYlDygVM0VnB8EmIsVjJnCSN1BnqjWS9h ZDcnIF9ISQR4VNhmRGZoIVLbK5hZKeRkQZojXLBxnLsoQA7SPrLqG1QqwsZlbTDaAfGyTQGOCw0+DQpl qmGiZuwQLgA7GZWmg6IySGq5QC6DZRTmATrgTM0SPYOkrH9sTQefBI7VBySvXMYxRQXNEuAqN32skGZu POs8Y9WgGsCaQWWfQdpzCPRsZHisRsLySUSnWbFiCU ogID4+ID4+TCspOY2AQIqxkfJiYFUbSh8FSSZaSAYdLA9cEDNgYLLeY3Q9jAssCKAKUeGlI0dsksxmTD 2wLWSoG023eNdiqjFzSHS2QIWdSe2UJENpXVK6DVYnsMLbUtZgGZVGXUdaHR3IiVAqFQR7vG9hVFckCP UnZPBpL3xWQvSimYtwXU86uEytliZlgATzUMq+Pg0K YO0jy9TqQPu2prJsDUrdOLTxKQcfQZRuDMTpZKVoGGN7BJS9KYILYfVxRTNsJLVhGGtbAARmCZFrha3Y DSWwAMYqGMUzPsXmEPHbXPGxFXeaORFrVQCzWYj5WGFgWKJuIX5QIeSqEBEfBLKsVJvyWEJaPRWlue4C MDAwMDAwMzMyOSAwMDAwMCBuDQowMDAwMDAzNTMzID XnEDGoWZ9SHjGfHCCcAYD5QsmqOQGuFXRpmx0OSDGoKCCwKZX7FBKtNQIvELUlTSiqENQwVDZ3XvS2CL PaIUSxNS0GRgPhUGRbYJX7QNLxHFZgMAJqat2BQXHrSISzObCuBsOkGKGwKUIxEBsqHBUuRKO1WJw9OX VbGQYcGM1VVyFpPUQdYGzgBAItZVOjWMUnkd4VVXQl LWHuMRU0TqUgADWjPMZaLMxtGFSrOZW9QdK5PIFdRLXhXI9QYtRqMNQdWBq9EbsjEUDdYHUdgi5SLCOd ZNKgWNeqInHeWZGgDEAqSAomAHKnMTEuIbk5QJGeFKJpPU8LHoQlIJPsULA8HOTbHCAkWVArfh7DNYWy TXKlPTC8QZFmILHmFGEgSThgCLPdHHH2XZI1UVJhHG PkCR6WHnRvZYFzOlPdUAyrIZJiGNAuwn8OLNNxEUEcQAS5YzKyKIEmGJWqDZsdMPSnTELkYGChZUDqNG FzMQ7IKaBxDXGkCkFqYMLnVLYnFVQlmu1CVRAdIQQuWOdnWGExYQTqBMNqHYkjOJOgWSSmRXc1MTPpEX EcWL8AJrRdRMXfMoGaGBxkCVOiUDWkfd7ECXKrCFKt QqL7TaTzLZSoODPuSLz3xaEiwVLkHRo6UB1AI0VidwOgScOHXo2Ew114RZI0PHLgIw4EY7arBi7eAIBq HFZEDp9NKLp1AlJjHPK5KqK8DAswHyJ5HmTyTBw2JINaU2JoVSCeKtj+GVqhG5Q3Lfk8ZOZpLXYbXmts LpKxXzTjSGZlEUNlQOSxAN9cWIQSWc8+GJvfbKQqkRvdBKYMZjGwGzIwBLatIKJHLh7L ID Date Data Source [id number] 03/26/2021 05:02:00 AM EDT [facility] Name Value Range Interpretation Code Description Data Arabella rce(s) Supporting Document(s) Blood Urea Nitrogen 5 mg/dl 7-18 Below low normal Health system Creatinine 0.79 mg/dl 0.51-0.95 Normal (applies to non-numeric resul ts) [facility] N-Acetylcysteine (NAC) and Metamizole em ve the potential to falselydepress Creatinine results. Baseline values before medication adminstration are recommended. Patients undergoing treatment with phenindione will have falselydepressed results. Patients on phenindione therapy should be tested with an alternativeCREA method.Toxic levels of acetaminophen may lead to falsely depressed results forpatient samples. Glomerular Filtration Rate 81.00 mL/min/1.73m2 [facility] GFR Reference Ranges:Normal Function or Mild [...] of Health and the National KidneyFoundation. The [place] method used in calculating this result is traceable to IDAL standards. Glucose 82 mg/dl 70-110 Normal (applies to non-numeric resul ts) [facility] Sulfasalazine has the potential to false ly depress Glucose results. Sulfapyridine has the potential to falsely elevate Glucose results. Baseline values before medication administration are recommended. Calcium 8.0 mg/dl 8.5-10.1 Below low normal [facility] Sodium 140 mEq/L 136-145 Normal (applies to non-numeric resul ts) [facility] Potassium 3.6 mEq/L 3.5-5.1 Normal (applies to non-numeric resul ts) [facility] Chloride 110.0 mEq/L 98.0-107.0 Above high normal [facility] Anion Gap 6.7 [facility] Carbon Dioxide 26.9 mMol/L 21.0-32.0 Normal (applies to non-numeric results) [facility] The above 10 analytes were performed by [facility] [id number], ,[place] [address] ID Date Data Source [id number] 03/26/2021 05:02:00 AM EDT [facility] Name Value Range Interpretation Code Description Data Arabella rce(s) Supporting Document(s) Magnesium 1.8 mg/dl 1.6-2.6 Normal (applies to non-numeric resul ts) [facility] The above 1 analytes were performed by [facility] [address], ,[place] [address] ID Date Data Source [id number] 03/26/2021 04:45:00 AM EDT [facility] Name Value Range Interpretation Code Description Data Arabella rce(s) Supporting Document(s) WBC 4.62 x1000/ul 4.80-10.00 Below low normal [facility] RBC 3.66 x1Mil/ul 4.20-5.40 Below low normal [facility] Hemoglobin 9.4 g/dl 12.0-16.0 Below low normal [facility] Hematocrit 30.0 % 37.0-47.0 Below low normal [facility] MCV 82.0 fL 81.0-99.0 Normal (applies to non-numeric resul ts) [facility] MCH 25.7 pg 27.0-31.0 Below low normal [facility] MCHC 31.3 g/dl 32.2-37.0 Below low normal [facility] RDW 15.9 % 11.5-14.5 Above high normal [facility] Platelet Count 232 x1000/ul 130-400 Normal (applies to non-numeric results) [facility] MPV 10.8 fL 9.4-12.4 Normal (applies to non-numeric resul ts) [facility] Nucleated RBCs 0.00 % 0.00-0.20 Normal (applies to non-numeric r esults) [facility] Abs. Nucleated RBCs 0.00 x1000/ul 0.00-0.02 Normal (appl ies to non-numeric results) [facility] The above 12 analytes were performed by [facility] [id number], ,[place] [address] ID Date Data Source [id number] 03/26/2021 12:22:38 AM EDT [facility] Name Value Range Interpretation Code Description Data Arabella rce(s) Supporting Document(s) Nursing Note [facility] HDRPWw8sKrOOGxPe06/ISRgxVBKef7KxWVjwNCq2FNxjZSBuF6GmWSR1dK4kJBR9IKyXRtStHhNnNYZ3 lbm [file] SmLkFoKD4GZb2IIjX1SER5sLRsZb6DJidgJZ0VPKNYY9LOSj== ID Date Data Source [id number] 03/26/2021 12:17:58 AM EDT [facility] Name Value Range Interpretation Code Description Data Arabella rce(s) Supporting Document(s) Care Plan [facility] TYMFZu2zZpUAPmTc56/CSHsqKKCrb2CvZUrsJMm9GPucNGHkG8DmUBI1zE4cMFN2UCxBFgNnKsXeBVH8 lbm TvAzrJYsSjDMAlIpwFYnUmIVwyMsbkoBLeHC5AaGR9XTRtC38kSMXrSWXeC1FtNBW9TUc+Rk3XLCZguX WbQD5PYpvW9JcWv4w3WS60mo3GcvFhkK9OPAG36hC6sb2sAy+dk3gtlXGW03XBHsXRsb8sNLD0s0bKIl e3fU1CDoJ+H2Q766MDCml2hUvHKbYjz/J//VWnkvUm 3Qum6SEWKBzPZw/WFDBTzmR0h6V/EcR8NwysfPIBVlirHllxR9djEdfLqt3sWkPMGjh4RbqFOI7aPn0k fS632BVAB0gg1G7u15WfsfGVGoxxUlxt//c/74P1y4kQuFPox0vuYkKogwpmlPuqlWYvywbxruksC8dp awx6iihhm5gSS+crrg52Iy/tsy4A4J/p6FUOOeXIzj 5ymDOLG8kFxtIHt2f9JGbfWzxzRA9fYTWM+3hSTXNoB7gt0ZCOJEShQAmZFu2uzOuYJpUjghcHDzIYcw ousoZ/Vs2Lu/5vXPg03xgJRfWspX1Mu4Q/J+Jackson+qiUjeGG8GKjDUc4dWtOfa2rphuDHxxz+Q+jMTtfFl bxb9pBxp89JRztpHcj33SMXJpKDDP2EtKP8/Ztf9Q9 2KvEKQN4ivvGWnQii9oyBFBcGLhkiuYRWpMxUIeYe/I5ZYTMtx9R7ZRK0FfCB7tgkPcXz7p/crrDb2Yd 3m/V+DWPN+HFcHIahuwvgm1XedjsDg17edsstJD3jclsAd6Gv1wmu4LBbN/d5ZRQ+uXOr/K+Hb99wM9J 0ouu02z94AQ/Pm0allo5mrcxBUltkwMwCkfiyjd8GW [file] HgXWTsPXEmKtJoVhc7ZzA0XMJgZSGoNvBjYY7DQb1REgQ0ZWF7zJBqFj0WBSt8Vm9JXGCSV4EQOt== ID Date Data Source [id number] 03/25/2021 07:13:18 PM EDT [facility] Name Value Range Interpretation Code Description Data Arabella rce(s) Supporting Document(s) Care Plan [facility] CKTYCg8sNgGMMiUa00/PGMncGVJom2CgEZydMWs1VWyzRHBnY4BkNIV4sA7eMOE4VPxSPoEoQbCxBLH5 lbm [file] latex caster/VbYra/72McVE2jktv7kwCIZiWGQ8TMeKmy4a2sRoxco/BvRC0+i1sm52ci3nCv3si8dP/DPMscSF [file] XSANCj4+UAdveBXfpDbzMKBNQcCkDTY1WYviXJLFKb9U ID Date Data Source [id number] 03/25/2021 07:12:23 PM EDT [facility] Name Value Range Interpretation Code Description Data Arabella rce(s) Supporting Document(s) Nursing Note [facility] IWEVYp8uCfZKHkLb68/TABfkBMTxr7KgUTicKWj1YPyhDZTyQ3DlLWF1hR3aWRH5WSmELsRnQdWsBQT9 lbm PpZacYQaKfEMAnFzrGPmVhGRndFpnojBXuHL7KhGO4QGElX72jQFFjGERkS0LcTOAvYjH+Ds7HRNMaaU IhPG2HToaM3QplswM4ZK9B0v/AZ3roksb5kR+EkLiUSkgUSqPzcjgPKdmGQG+kCQV+/dmNvUm+wZo27R ZB+3WB6PmWk/vGuyEKf1+z0eahKQN/y6+uNPTxlB4+ vBU1nHa5cj9iZdValEcyNBZbW/2rQq/MxMcUs1XI8ov65DcmKQeRlT5vFugSLA68hv7k22r1Yx1M7DpE of2lhkOLg+E8Pdu7bo67vFj6iyjqZ/xWveDWwQ1LdeeqVaMvldzcgU8A0QThrc8SnUQrbHTWVETSEsDf FccYx3sW3odrWHmDwh7N12pTPPsi+fqTN7UO+jZEGO iGGBRyhWy0TaHMm1Zxg+8qNDytFESDKRqOw9DEz8h4KrW82yNGPGfMoZpslISFEMqjRYvY3qSpK4hprO OD0F8Bu1sKyGmSkRekp45IdobePqFF15Cvmkr9X5xZ7JZGPyi82jdKoGUxLigQWo60Zk/9T0CduFZr6i Y1v3Sp9FWtKdNtm5j6k7+/vuXW+gI7XXpGyhUBHnJy lLQ0onSjm6jBdQhNPth0q/DYaNnufL7jdpTkD9WRrGP/aPD6/jNlebc7Sduq69WcwkQQXTnPqP43KYlN QeYfm5dW8R6o/zZryC3MAqmWk6BuVN7x64y83aKRxPNIc4v9y34M99wzo+gvkd+NnY3LoBklp5PqJRst f2G/GO3a41N528HfMMxhf7b9Mz2uFflBS3ffEm/Clau [file] caTOFWBe4L ID Date Data Source [id number] 03/25/2021 05:38:02 PM EDT [facility] Name Value Range Interpretation Code Description Data Arabella rce(s) Supporting Document(s) Progress Notes [facility] CNYTQt8bPaHOYgRw80/UESnhJOQsn0DjNZnkBKu9GNhaFMZdI4PbNNH9nU1uZMN8UPxOEiZyGwBjDQQ0 lbm [file] FVZqRbLV8LQRn= ID Date Data Source [id number] 03/25/2021 03:02:31 PM EDT [facility] Name Value Range Interpretation Code Description Data Arabella rce(s) Supporting Document(s) Anesthesia Postprocedure Evaluation [facility] XACUKm3sEjQOPpSm47/VUImlSXNhz3GbHLlsRHt7VYzqMLZnC3DlDQZ0lT1mKLZ2ZPkIZfRvAyLxLJF5 lbm [file] MDAyMzQxMCAwMDAwMCBuDQowMDAwMDIzNTgxIDAwMD RkZZ7QNjCoWKcnPIALOdy0HMnyA4u6TUTbWA6TY2Hgj3MtPxonIMDMRMusJP7weyDuPQAcRl9GL0uLOz yzV7NlHGC3LTccCLK4FVJiDVIuKJO5CfE8MbXtJrNyGw1tCRWcM4E0SEt0VZK4Hmz9ZpBcUgBxIRNwZX e4HkKdI6IiGvCjYR0PFh5FXjH5QNI3vVHmEp3NQcZ8YpXVGpUeIY9EKJl= ID Date Data Source [id number] 03/25/2021 10:57:36 AM EDT [facility] Name Value Range Interpretation Code Description Data Arabella rce(s) Supporting Document(s) Nursing Note [facility] FIRAUh0kBpDLZjXn61/LYVmfSYOtp5ZgEViwSFt3TOuxKLFqU2YuMMU8lJ1kTOX2YPuSDhErUwHgYUA8 lbm [file] ICAgICAgICAgICAgICAgICAgICAgICAgICAgICAgIC AgICAgICAgICAgICAgICAgICAgICAgICAgICAgICAgICAgICAgICANCiAgICAgICAgICAgICAgICAgIC AgICAgICAgICAgICAgICAgICAgICAgICAgICAgICAgICAgICAgICAgICAgICAgICAgICAgICAgICAgIC AgICAgICAgICAgICAgICAgICAgICANCiAgICAgICAg ICAgICAgICAgICAgICAgICAgICAgICAgICAgICAgICAgICAgICAgICAgICAgICAgICAgICAgICAgICAg ICAgICAgICAgICAgICAgICAgICAgICAgICAgICAgICANCiAgICAgICAgICAgICAgICAgICAgICAgICAg ICAgICAgICAgICAgICAgICAgICAgICAgICAgICAgIC AgICAgICAgICAgICAgICAgICAgICAgICAgICAgICAgICAgICAgICAgICANCiAgICAgICAgICAgICAgIC AgICAgICAgICAgICAgICAgICAgICAgICAgICAgICAgICAgICAgICAgICAgICAgICAgICAgICAgICAgIC AgICAgICAgICAgICAgICAgICAgICAgICANCiAgICAg ICAgICAgICAgICAgICAgICAgICAgICAgICAgICAgICAgICAgICAgICAgICAgICAgICAgICAgICAgICAg ICAgICAgICAgICAgICAgICAgICAgICAgICAgICAgICAgICANCiAgICAgICAgICAgICAgICAgICAgICAg ICAgICAgICAgICAgICAgICAgICAgICAgICAgICAgIC AgICAgICAgICAgICAgICAgICAgICAgICAgICAgICAgICAgICAgICAgICAgICANCiAgICAgICAgICAgIC AgICAgICAgICAgICAgICAgICAgICAgICAgICAgICAgICAgICAgICAgICAgICAgICAgICAgICAgICAgIC AgICAgICAgICAgICAgICAgICAgICAgICAgICANCiAg ICAgICAgICAgICAgICAgICAgICAgICAgICAgICAgICAgICAgICAgICAgICAgICAgICAgICAgICAgICAg ICAgICAgICAgICAgICAgICAgICAgICAgICAgICAgICAgICAgICANCiAgICAgICAgICAgICAgICAgICAg ICAgICAgICAgICAgICAgICAgICAgICAgICAgICAgIC AgICAgICAgICAgICAgICAgICAgICAgICAgICAgICAgICAgICAgICAgICAgICAgICANCjw/vOGeU3qwyZ NovcP8N6qlUs2QVj4HTB6dm0BtZFZyPGtxlpGeKdpMVhIsFBYaAsaOJyz3MQjmZH9OlNToA2PmI2BdLT abGZ0OGWBiZDKseSDnRDTgWNWnWxO9DILkICacOV1T lEUkRNvjBPIaJSJwGR1FWPMoW779fyFyNZ9QAl0YSqZkLT4wri1WPlPxVNLyUzbIYyh9NNbmZL1PgOYr kNTmMePiESMTKiVeO2ovl3EeGiBbGQLIVZfeBF1Vw6RabPPwKDu+Ew9IZB9yg2HnERvmZuEgGI4ono5G OMcWElFaF2RigNglUI34phMfodsbIp40LLBxoCOQeH WcbDOpkBSwBYs7k30xKDKUHMH4EIocPSamQqOzSKWvKZx4AALBSSfUHtEvM1Vys8QxJvX9YSWiQeWnTY muILXzBdN0YO91rMwgME7LCAGqORGbSR42NHZwIMQzNs5IEm7MWjQbHW3ekr2NGpPtLXCfTibRThy7HC drSF5UsLTxU2LokSZvm8eJGwRwU3PTPFStUINlGj0Q RQRaSqBqZSRjREdvQA6pKVPiBTADcQsncuR1FX0DCD6orvJlIK1ONaRhEb7aTr6YSqZtZ0PjU0QgVTJd CLEUAFnoOJ1AECitJA0kKY1Zk7ORsNVpcB2iav3EBFDiEUQvBppaox9ZKjsbH7H9kGcbAEZjFuShZJOE KJsfAU6KQUSiMZA9PXQsUEBgWBRSToHxL84kOK9JE1 Jbl49cXrC3XBYqYtSkKWtrSY63rMncreVtuTRcwPxkJV9ICt7+DQplbmRvYmoNCnhyZWYNCjAgMjUNCj PeQRBbCZZvWIXtXeW6ZiBtEd8BGEKaZFWdGENeQxRbJZQjXXVpOVkhTLZaNGS5FFS5NYYsSMLsLP5ICr JvOWZiRgAnVRPsVZCiCCYlny2NNWJpVSOsYDM6HyCb LXJuMFRuYAihZLIvROKjJJTkUVYzJAZhZG3GXkTdNBMyIYZpHTFpEBPiGRPskb9UTBVvBQHuKlZrCtXv XHScBKQmWIiqQYNgPJUbSLZfMKJaXDVlHK5RKlYiDKScXEA6NByoQTHkDONwyh0OSAXtYLIgPiL9IjNd SMNkBVOjIPqbRCZrIULnLhD7IFQzHGAmXZ9UQbWcLZ BlUKB9ZdRnCSBgIGXrkl2AUYWcZBVdEgD4QULvTXQwLORjLAelECBjRYW1UBdiULUhMBPeSV9PBgNbUU DoDMT4RNMcISLpGXHjbh1XUKUzZPGfWbP9XEEvYJSxFQWqEMvdEZNvAFM8QJe9YQZuADLvDC8GFbPoPY LlNWojBiqaEUYdVQHjlo4RYWQmYQXfCMSkMmRxTUPz EPLpWXxsHUSbJJN6IKk8YZIjPWOrEE5GQvRdOJVhQWe6RBHmJZPrFWHqhj0BNWHfNHUnHUU0TFPbJVLp FXMbWQzoHBZrRVYhWNKmXDGnNPEgTS3HMjGuYNLnGxM6IQrrXLAzJEIntx8YhIWlvHfhce8BRIqYTs6C vUjtWSM3HVgbYy7lmDRlNSReUVFZDh6YluOgFLPzGV CZLFgxYSHhBYVjQHLjWFJzHNNeEQDoXIPoW0G1AjdeFXPmUBxuGiByMpN2HqP7WTV0EDC8DHZ9KJInFB ZpNsjvBVWoNgBjFMK8NYS+SF3aWEt+Kt8Km2NnjrO0rvQuUJmqATdcRl3JFGHKS1HGGa== ID Date Data Source [id number] 03/25/2021 10:48:41 AM EDT [facility] Name Value Range Interpretation Code Description Data Arabella rce(s) Supporting Document(s) Nursing Note [facility] TSJUPn8uCaXANmXv47/JANjmIMZoz6QhUTlfUOw4DEgrVWKbW0FcGQK7zF5mKAO3WNuNYeKjSxZuDSI1 lbm [file] 8LBdR8QWO8qANbOs2BQyY9JUIIYfTvPC2ALVw= ID Date Data Source [id number] 03/25/2021 10:42:08 AM EDT [facility] Name Value Range Interpretation Code Description Data Arabella rce(s) Supporting Document(s) Procedures [facility] VQVQXz5lCbYPHjUt69/FGQoiZXNsm4ZdKRnoYGn7WFkiHTPlY8WoXIG2cC5zZWK5JXgVVzTxYpOcJUV9 lbm [file] AjBvP3C7TkMKFdKzRxVU2UQn8MMuE7GYY9eHBdYr8TIfG4RpRNFhZePF2BYSz= ID Date Data Source [id number] 03/25/2021 10:11:38 AM EDT [facility] Name Value Range Interpretation Code Description Data Arabella rce(s) Supporting Document(s) Anesthesia Preprocedure Evaluation [facility] UEOVEi7eKwPPOjLd63/TGLggFBKki6XwJKvjMOf8EVneCCJlL8NyEWJ7qJ3cCKF1RHuSQkEaZiGmPQV6 lbm [file] LmuZtbaRmu3fjGEdXlrcrc+F228zhO/c+yI0+bmM03eZdGsYXubH3Qjd90c7FcxLMySQtBel2mnc/[place]ío Agan0sK/00XjMGV6f/ZFkIrNC6KX3w9xC7/qPg+f5H 2oGZPpT5eeKpWiaCUnVN9lY1KSwY+xCKNVhVOuVvivbcBL0K+ppjRK744EJjtVDsFfOINmptn3jHqAFp hbW/rogelio+C61/G9iqkZcenR8VXyNpIeXJtkvByN3fzOTmQlJMNkPLdOjyplZS2ij3NOcEzwv0fSIxP0jo [file] CgUG9VGb0PHbV9ZUF0lPIzPe7VWbTvAabZSvQhAY2FFDf= ID Date Data Source [id number] 03/25/2021 09:23:31 AM EDT [facility] Name Value Range Interpretation Code Description Data Arabella rce(s) Supporting Document(s) Perioperative Nursing Note Health system AQOIAv3sKmKMIsNj16/OKXizHUVnv4QiPWxqCEj7DVuuUHKuX3EaUDK9iS5jUCP3MPlCKxRrFqFaNVX9 lbm XnCqrIErYsPKAvKgmKOaDoDGfxMkbhoTJwDZ7LuQX7CPAlC87oASWmUZVtF0VhIDsvCG4+NCwhVDA1fi YfsB6GEQPZVEvk51RVkOjhQ+vVZs9ae7w5UuVbEsTRgSkqP6uSHfqmyOcR0nYk36Q1sqbtBZymaaWhL6 s0s+sVgff2ZqM/D5oYQSzzZg7Cf3qUacbKqvjKlDTx gzq8OdgcYPUSfP0Ksqk83IJpZgdLAR/3nMJKsEqPWkeWGSXLwrMI1RoX+tFCGVG9HqASFE5hSlafbsNZ 1KTzR8C9hc41CB+ieNr97CBL0n/NanRKgmRFgpxxsG9JVgajVutDpBJeGWAJuydksgVKaVdMCxgihw7t 8wOR5V4qUhewgTBP7WZPQpSsYk4ojXqcjySZbRq3t8 XPFowo42T9k1ZcD5rmoXwt2jTdXCxWiI8TVgcY9bmlEFsq/dFUo+kAlByVymcrUMlQdLTcVyiUDJruQS zCy+Vf2maGDH14PyC4JeLXCgOVs99Jk92Wv3suTIxHqYhdRfESqtZvu8VI3jo8+A6QkOAuSAcasb+t6H CcrLZpNHzauEKpdcN7/csty95ExqLZl7t0kFiZsSAN fPptyBC1hHW1tuvMVs9d+hmkxQww9sDUh4+WJ53tCSxR1jY24ndxgOXcvhAELalWQF4xEH7X89W3DJ6b CFg2Jt8Pa241WoXfajwRdnxPVQ2l3rTM+q9Udc44z9G+5D5DABN67v/qHYqsZBP8A8poDK/Jpfpd/bottle hop [file] 9GDQo= ID Date Data Source [id number] 03/25/2021 07:03:25 AM EDT [facility] Name Value Range Interpretation Code Description Data Arabella rce(s) Supporting Document(s) Nursing Note [facility] QIEOMl2pGoZFYwZa55/SJCxdKOWnj6XhNGrsRVp4TOorNXAzP6AwSRK2oH8rTVT7ARkIQvCpNyAhMSO5 lbm [file] latex caster/VbYra/47FbWI8nbcn5meKVDoKWO6THgIqt1h9bLhgvu/BvRC0+u4sq75rj9zUm4mg2aM/DPMscSF [file] 0K ID Date Data Source [id number] 03/25/2021 05:44:00 AM EDT [facility] Name Value Range Interpretation Code Description Data Arabella rce(s) Supporting Document(s) Blood Urea Nitrogen 6 mg/dl 7-18 Below low normal Health system Creatinine 0.72 mg/dl 0.51-0.95 Normal (applies to non-numeric resul ts) [facility] N-Acetylcysteine (NAC) and Metamizole em ve the potential to falselydepress Creatinine results. Baseline values before medication adminstration are recommended. Patients undergoing treatment with phenindione will have falselydepressed results. Patients on phenindione therapy should be tested with an alternativeCREA method.Toxic levels of acetaminophen may lead to falsely depressed results forpatient samples. Glomerular Filtration Rate >90.00 mL/min/1.73m2 [facility] GFR Reference Ranges:Normal Function or Mild [...] of Health and the National [employer]ney[employer]. The [place] method used in calculating this result is traceable to IDMS standards. Glucose 92 mg/dl 70-110 Normal (applies to non-numeric resul ts) [facility] Sulfasalazine has the potential to false ly depress Glucose results. Sulfapyridine has the potential to falsely elevate Glucose results. Baseline values before medication administration are recommended. Calcium 7.8 mg/dl 8.5-10.1 Below low normal [facility] Sodium 140 mEq/L 136-145 Normal (applies to non-numeric resul ts) [facility] Potassium 3.4 mEq/L 3.5-5.1 Below low normal [facility] Chloride 110.0 mEq/L 98.0-107.0 Above high normal [facility] Anion Gap 8.7 [facility] Carbon Dioxide 24.7 mMol/L 21.0-32.0 Normal (applies to non-numeric results) [facility] The above 10 analytes were performed by [facility] [id number], ,[place] [address] ID Date Data Source [id number] 03/25/2021 04:56:00 AM EDT [facility] Name Value Range Interpretation Code Description Data Arabella rce(s) Supporting Document(s) WBC 4.87 x1000/ul 4.80-10.00 Normal (applies to non-numeric re sults) [facility] RBC 3.54 x1Mil/ul 4.20-5.40 Below low normal [facility] Hemoglobin 9.0 g/dl 12.0-16.0 Below low normal [facility] Hematocrit 30.0 % 37.0-47.0 Below low normal [facility] MCV 84.7 fL 81.0-99.0 Normal (applies to non-numeric resul ts) [facility] MCH 25.4 pg 27.0-31.0 Below low normal [facility] MCHC 30.0 g/dl 32.2-37.0 Below low normal [facility] RDW 15.9 % 11.5-14.5 Above high normal [facility] Platelet Count 201 x1000/ul 130-400 Normal (applies to non-numeric results) [facility] MPV 11.1 fL 9.4-12.4 Normal (applies to non-numeric resul ts) [facility] Neutrophils 50.5 % 40.0-74.0 Normal (applies to non-numeric resu lts) [facility] Lymphocytes 35.7 % 19.0-48.0 Normal (applies to non-numeric resu lts) [facility] Monocytes 10.7 % 3.4-9.0 Above high normal [facility] Eosinophils 2.1 % 0.0-7.0 Normal (applies to non-numeric resu lts) [facility] Basophils 0.8 % 0.0-2.0 Normal (applies to non-numeric resul ts) [facility] Immature Granulocytes 0.2 % 0.0-0.5 Normal (applies to non-nu meric results) [facility] Nucleated RBCs 0.00 % 0.00-0.20 Normal (applies to non-numeric r esults) [facility] Abs. Neutrophils 2.46 x1000/ul 1.92-8.31 Normal (applies to non-numeric results) [facility] Abs. Lymphocyte 1.74 x1000/ul 1.20-3.70 Normal (applies to non-n umeric results) [facility] Abs. Monocytes 0.52 x1000/ul 0.14-0.97 Normal (applies to non-nu meric results) [facility] Abs. Eosinophils 0.10 x1000/ul 0.00-0.76 Normal (applie s to non-numeric results) [facility] Abs. Basophils 0.04 x1000/ul 0.00-0.22 Normal (applies to non-n umeric results) [facility] Abs. Immature Gran. 0.01 x1000/ul 0.00-0.02 Normal (appl ies to non-numeric results) [facility] Abs. Nucleated RBCs 0.00 x1000/ul 0.00-0.02 Normal (appl ies to non-numeric results) [facility] The above 24 analytes were performed by [facility] [id number], ,[place] [id number] ID Date Data Source [id number] 03/25/2021 03:48:12 AM EDT [facility] Name Value Range Interpretation Code Description Data Arabella rce(s) Supporting Document(s) Care Plan [facility] SGEYLd4xVvLCQtTg54/UFArkFBBna0ClKWhwFPl0DBylKCTzO6PuKQC9gO5uSHU9SBqVJmAaWyOsLQN5 lbm [file] RvYSQbZKY3MOZaWQU8MnJcXxQdGLHqScV2In1zFD ANCj4+RKtcrMEckFnoVWTIMmL8SyFjEXrtVYBMUf9R ID Date Data Source [id number] 03/24/2021 06:47:36 PM EDT [facility] Name Value Range Interpretation Code Description Data Arabella rce(s) Supporting Document(s) Progress Notes [facility] FFVOWs5nIlBKJaQw53/GADgyEMSae1NlHYfyCUv5GOekXIUjC1JxMYH4zH1uXED2VYkRLkJgCrTwSVU7 lbm [file] sX7FfeArRDCGp9lfn+IOxXfu/CdkAJ4it72m/O [file] AgICAgICAgICAgICAgICAgICAgICAgICAgICAgICAgICAgICAgICAgICAgICAgICAgICAgICAgICAgIC AgICAgICAgDQogICAgICAgICAgICAgICAgICAgICAg ICAgICAgICAgICAgICAgICAgICAgICAgICAgICAgICAgICAgICAgICAgICAgICAgICAgICAgICAgICAg ICAgICAgICAgICAgICAgICAgDQogICAgICAgICAgICAgICAgICAgICAgICAgICAgICAgICAgICAgICAg ICAgICAgICAgICAgICAgICAgICAgICAgICAgICAgIC AgICAgICAgICAgICAgICAgICAgICAgICAgICAgDQogICAgICAgICAgICAgICAgICAgICAgICAgICAgIC AgICAgICAgICAgICAgICAgICAgICAgICAgICAgICAgICAgICAgICAgICAgICAgICAgICAgICAgICAgIC AgICAgICAgICAgDQogICAgICAgICAgICAgICAgICAg ICAgICAgICAgICAgICAgICAgICAgICAgICAgICAgICAgICAgICAgICAgICAgICAgICAgICAgICAgICAg ICAgICAgICAgICAgICAgICAgICAgDQogICAgICAgICAgICAgICAgICAgICAgICAgICAgICAgICAgICAg ICAgICAgICAgICAgICAgICAgICAgICAgICAgICAgIC AgICAgICAgICAgICAgICAgICAgICAgICAgICAgICAgDQogICAgICAgICAgICAgICAgICAgICAgICAgIC AgICAgICAgICAgICAgICAgICAgICAgICAgICAgICAgICAgICAgICAgICAgICAgICAgICAgICAgICAgIC AgICAgICAgICAgICAgDQogICAgICAgICAgICAgICAg ICAgICAgICAgICAgICAgICAgICAgICAgICAgICAgICAgICAgICAgICAgICAgICAgICAgICAgICAgICAg ICAgICAgICAgICAgICAgICAgICAgICAgDQogICAgICAgICAgICAgICAgICAgICAgICAgICAgICAgICAg ICAgICAgICAgICAgICAgICAgICAgICAgICAgICAgIC AgICAgICAgICAgICAgICAgICAgICAgICAgICAgICAgICAgDQogICAgICAgICAgICAgICAgICAgICAgIC AgICAgICAgICAgICAgICAgICAgICAgICAgICAgICAgICAgICAgICAgICAgICAgICAgICAgICAgICAgIC QkBHWzJGClTKGkWCVdFTRbBVw7U7agWXIsLSVwCF9s JAx1As9+XMhDGpRzQWZ1hnHlyF0MPY3my8AxTJiuNZJaz5EtSFw2UU6KIHItWFtaNP9LUUvpdc1AFDHe DGIutAOSu1lvTqFiMUF1VCFeNhlhOH0RRTZeP5jyyvUqWPNoNQUELKxyROLZLUkuJHZJHRJrEAUnPuUs HkDkAVAwYBWaOQZRGZT1NSPdFaSsIWmzRZ9Eb4FkvO A3DQo+Cx4UBE4zb1ZqVCx9OqZvMK0esj0QWRaTTxOuR0LqdbQ9TCX4MDZwMn3ZHDBhKSYpjOX7BFXeAX PMXuWrK1AsbY48SMUWTv4+HZcqxeUeFvoYNmR1WOUle4HuJGu5SO3LXIAtMEa0dUHlRTWoO8Gxi4XqXr 75VDRyQkhtD5YfHX00dMPjKLKshjQxxclru4YnHB4M RUQ7VKkrJDVkFgUrSZYzOOkoJVLDBYuUSqTgX9Qjh3IeLwW7CLNfYxDqWWbfMKXlEdX8GO61yLvaAI7X JOHcVXKlWJ83IOLpLPJuRj9JAn3IZyIeLM4dxf6AHXUpVWZlTouEKvc4XJgkBU6WpMTrM9PyoUQah6vT IhFaP8PFKJNjRHZhRi1JCHWhSaNmVTKiJDwnMB3bGZ JkIYQShCruzoA3XX7ETE0eucTlAZ8QWmUvAa7hFy8ABvBnH7DlH6TdIIQyPHVRFBmsUA4JBCieNH4iIR 8Re1VFqYElaH7lpi2PQSByRUQaMzevyu9WPhkgY1B8lIshAWJzBSHbPYPWEUkcYM0APUWcEGX7IES3Yo XtQLCZSsXjO18fDV1RL5Uek16vCxB1ABFkPeQpPMvw UI20uBcjfkVzoYNpuMwlXD9OSm8+EZkbwxMsTzpQOkaqSMAEMoGxKUZBDcQxAHMaXBReBWOgEtH2IfAs Xy8HZUKaNICyNXPcZqWtCUFgJDTuRWokDSQtAHZ1PKI3LPIrZNMjWV4EOzUyBTVoMmw5ZsWvKWDeMDCf dr5SGTFtMYXnOER1LnQiIJKhNCJaHMrePVHaKFLiXD IkACZpPDMoKO4HQtTiXIBjZNG1EbFzQEIhYSHhrq6RHDZjBHAxSAdyUKGjQODsASDqVLrfTOXsUGT1RP GtCIYsVELyGG9JEuKfOIFrHWi6VTaqXFXuSKDbbe4DPIQqSWIeKRQcEWZrSJYcBXFbZZmwZTXjPWO9QD R0MHDwTRKnEC7MEsTdXXZoWJOaIyZeNARzHYMrfd3E VKGpOORoYZbaXPGbXDXwDJIeLUkqWQEpIEBjCOSfZRDsYDUkWC8HVbUkQMIpQZP0PBSxUODvMCIlfe5Q UWRqQLUtKDO2KXOwLSGpVJXkYOnhRRXlPVO6GQU7AUWnURVbLA5RVhYuGLSmGNS1GTQpVHDzGBRfkw6H AQUgYYPdVtO8MDNmXZBtZTOkILkmNNTrLHF0Dyg2IW TkGJFcYK3CGpHdXMDaOXQ9VfRpZMToYKFjbq5YAEShKKXhXlelWLPoHSKqZLQnNKpxLKMbRTK5GZZjQQ UrQNFiID0GZsIgFBHsMNytJZPzIUVqCQAimf1KZHKpQHYpMMI0JoPvWZBcFSOyOHkzXYHeXVK1QWPiTO QtGKBwOZ7PBwToAWKoAKe3UEjwEBAyBQTajf4ZBEZz RQGqTDAzWwNwLHKmNKXxIPirVWIgJZElGEE1USXsAAImAZ4AQjRyIJZqNyNsVATqPOHxPZIfyf5TLGWr ZNAtPKz7SyGxXNFsLKSgXJjgVPTnHEScMOKcKEJkGVTkUR1IBzUsCWIiTuSaPCkcMZDzVDUuyc8HJDHu TNEmDMO4OPYqHKHuUNGxHIllKGLyFOB7DYi5NQUoBJ DcVE4XXjLvASTaOgSmVBEmRALsMAXdcr4CUEKqMCCrDnU3HlBbQLGlIWMqHStpPBJhKZF0OPpoPYThJE WyKS1HChWsXYMcByp5TfUeVUMkKBYnwq0ZWKIwRUZvHsvuIbZqYYLkMDVzUMvhVMMqHWH3ZVL3AYBmAO TvYX9HLjEhLOEzBwitXSJiWGBxBRJvyp9GFXAaERZo UOl9UPKjNCOwBRQnZXiuZXYeKZJ1PCFdYRHwHWBaEF4WFuXhCKOvCIKsIXHqPXGuUIZycy9TzFNnnWii fq2CPRfFZb1FxPyuSLT3VPkoUz0tqOD0KROyPIEKXu0NejCtKDPcDXMMQArlWWPjVXk3TMHhRdi6F9Ms PtSjBfC9POIsUXZzFQEaPEG3WwFpXhW4QXM7PQJgHY e6VgUcZRR5EWt1NDAeUHS4B9K0QeoxW2K+VH6oPRz+Oi8Qg6YpxlC6ukSyMPi6RMFyRH8LJFMPA6KYRd == ID Date Data Source [id number] 03/24/2021 06:29:29 PM EDT [facility] Name Value Range Interpretation Code Description Data Arabella rce(s) Supporting Document(s) Nursing Note [facility] ZUGGYs5dLwLNPqAk23/AMMviDVNhx3BdXCkpVIu8GDrzDPZqA8FtESX5fH3sFFG8UBuQHfAoPhMwGTY2 lbm [file] U8CZJ9WMYeXFOjZvJbMU6QQk2SHzY5EHL1wHOeTu8AZpDqVFYUGeRiKU5BXOp= ID Date Data Source [id number] 03/24/2021 04:19:00 PM EDT [facility] Patient: SIENNA FOSTER [facility]ation [facility].VisitID: [id number] [place] [address] [phone], FRegistration Date/Time: 03/22/2021 13:25 Weight:72.1 kg (S). [...] rce(s) Supporting Document(s) ID Date Data Source [id number] 03/24/2021 04:11:33 PM EDT [facility] Name Value Range Interpretation Code Description Data Arabella rce(s) Supporting Document(s) Progress Notes [facility] IMABCs0mSvLACmIc23/RFBrtKNBof1WfGCzgOZe3UWcnIDNhW1ZoUTE4lV9fGMR4KMkZNkJfOrJfGDF1 lbm [file] UnUhIP0JIRk= ID Date Data Source [id number] 03/24/2021 02:38:34 PM EDT [facility] Name Value Range Interpretation Code Description Data Arabella rce(s) Supporting Document(s) Progress Notes [facility] VVEMJe0eIsGUPrMu96/LQFarHVDpk5FfYKvhCRi6HRagDHNbK0BvRSP0bJ0oISO5RFzRBrIxNmOxULT5 lbm [file] WxtW8NU0PHGOjQDDRKVr0LHFFlU27KTOSY+6OrAE60 FGN6XU8P+bIrkOdHIqLnIAgsQES8cY+9qD4YsgKCuLmRVoswiLvtW+yHWwJFHbRSV+UqW+aeBT4A/oP6 zfFMK80PntJ1/o/hJM7MBFD2d5t/lMF4DHusCWcW7AmnW7d/ZK0kvRx79uHiMwvZkIKN0gF58gF6DOgX vxFUC9Uf3aRQZTqqX/uceBrtOgT/c9N1ZZ76FGPo6d pWwzawv+sI+W7b8o+CSy6dnp+ZayvGsY3d04dLS3B71Rx+jKmrs00H73qshE0U1DYAQhZxsrtT/xLUec /8Ji5Xy3HoCEUfLoZp7dHTnaMJ8m4wpXm3VhuKzOW2R1/Pdq9vRa14Z9z+srQ5uE5WIGsruCw1WXpNtS ZT6pHwweKZ3gNijJlZ0cIDv89Tb45lmn+kPgUcwXpp qXrDA5coHlQon165rm5nAVU0Sn4WZKOfDzOI90PY7f99ij+h+1Jg33ZgLg7m1zlgitKoV3VxFAL9guA0 j+z+6qidAr/V9Ha7UFIcr8Sw9IlrhV4K5rJxvVZ+TCaF3Mv+M+PqPovE1eQasolyfJK4eY3ZhmbEW9oG qxncw+keYKHLRSmuluJvqMxVkyhfnDHafxtLnDuuQ9 4wmw61S5/Ph+/wHcGekAu3w1H1yJYpxOYkCYi5ZVrzDA3kS/99kIZnZ+Q0AfFRWLTBC17k55AZRbU6NB hjBoktVogQw5IylPxjUhLKJsRdVYSv9RO4mFq3b+g8Xo3jeqW2Bd9kAoMw8ZPAmqkNcLwh6Sf84asIDS xzPfw88QRQCC5r4BqyO3ehl/u4zYbfPO808IMMIX56 BsWMgTlQq6jWvgydKQD6cBafG+a2N3BO8kpK+zDyWNqj7rq4vSNQ3NQGW/C9/hIaLFWSLv+x6uym0TWW wi8L643x6qyzFwbw+GvjDHFEFZl3t9X3db8hbz+lDrD/xkjNzI/1A5GATjGiwomGY0h95uxOlAeYhXhS ziWoRhp9FsG99Bwr3JbGA69qusMcy1l76+JdnrYH+7 hKCS1fSxlMwl8bUGEOHmj0W3i0bB/4ByAt/y2bH+FnZD22dD992cA36YOWrN/rS54FrwJarnxP53eE07 4BEfJxf0CjcOsIq74Pi7v+V8czynlwlmw3gZ9jwBM5mUtTlHxfEsueLaYIjUZv9d//bayUL4Lz21Rbg/ +kk80Gxma7HKKcl+0rjeWZwyW1IMQytCsFKonor8/v BIm//0BRXYx1BtQp4OXC7O7qQ17GWwO0aqD7NB9MLpaUFwBvRw0Fy5vTJp8zoVvqBH2DZfPh2qS/A/[employer] research [employer] Qywr99G/ZA94cXeSdYidrGoYHcc8dUFNJsA1B16/RDalvZ6RusIKYL9NZ8gnK5JwoSI7t093a6wUt6rY XxnWuhx+d6E8yalLdmKrd183n7BGJ1pJdK2Cq2ONU8 mxMhVTLJRlQI66tFKC3erpuJ1jTkzEqpfY32tdGhImkUKJN2M/uy0K+6bFUTyzvY45WtT/IEdSZab4Ug AnInFdw40xo6o41Bw5hc1AV1tjGCYTev8jxOwgag37G5zoDa/fA6clE0zVhkVquWjeXFN2kXSBoQuRDX 9cYrtKskUJeJob63/wOWyN6p1Nh0TH92iXdxB6ONqH uBv5l3yBvRh5kC/mYuyUPxDmMr5MbILbabqSao0fXEKsi9mYquLjH3g5wqI8WHuwxUaHBEvoiAt2oA7G C7xfs3cB9Kax97LXWQxEOj9yZIgt5d9wNdBuGk3mnfq9ngjnxTwLlly6LG8nwTk4rFKY76x1LZutDp5g YetkRWdDSQRia0ruYuDXLX/XljWxLyMrhIclc2ZWtm 9DxnsCRkw+wpPcVshgg/ILGTXmF+kIxLMfOnzGGp4Pb4rMrO2xw1D95qCitTdMjzKVnzzAkNPsGNK/YV MQNjD1bYiRPXp3sHtEWTH9VrNlxVJY1PwWVckJdp+sbkO1vn3BLanKTXvSQIhVrwj8A/d6uSYwKE2YQ2 nTFgK7UATVdab+YYVVjaIGJA+NNAMYEuGRNoSCNV08 [file] ICAgICAgICAgICAgICAgICAgICAgICAgICAgICAgICAgICAgICAgICAgICAgICAgICAgICAgICAgICAg ICAgICAgICAgICAgICAgICANCiAgICAgICAgICAgICAgICAgICAgICAgICAgICAgICAgICAgICAgICAg ICAgICAgICAgICAgICAgICAgICAgICAgICAgICAgIC AgICAgICAgICAgICAgICAgICAgICAgICAgICANCiAgICAgICAgICAgICAgICAgICAgICAgICAgICAgIC AgICAgICAgICAgICAgICAgICAgICAgICAgICAgICAgICAgICAgICAgICAgICAgICAgICAgICAgICAgIC AgICAgICAgICANCiAgICAgICAgICAgICAgICAgICAg ICAgICAgICAgICAgICAgICAgICAgICAgICAgICAgICAgICAgICAgICAgICAgICAgICAgICAgICAgICAg ICAgICAgICAgICAgICAgICAgICANCiAgICAgICAgICAgICAgICAgICAgICAgICAgICAgICAgICAgICAg ICAgICAgICAgICAgICAgICAgICAgICAgICAgICAgIC AgICAgICAgICAgICAgICAgICAgICAgICAgICAgICANCiAgICAgICAgICAgICAgICAgICAgICAgICAgIC AgICAgICAgICAgICAgICAgICAgICAgICAgICAgICAgICAgICAgICAgICAgICAgICAgICAgICAgICAgIC AgICAgICAgICAgICANCiAgICAgICAgICAgICAgICAg ICAgICAgICAgICAgICAgICAgICAgICAgICAgICAgICAgICAgICAgICAgICAgICAgICAgICAgICAgICAg ICAgICAgICAgICAgICAgICAgICAgICANCiAgICAgICAgICAgICAgICAgICAgICAgICAgICAgICAgICAg ICAgICAgICAgICAgICAgICAgICAgICAgICAgICAgIC AgICAgICAgICAgICAgICAgICAgICAgICAgICAgICAgICANCiAgICAgICAgICAgICAgICAgICAgICAgIC AgICAgICAgICAgICAgICAgICAgICAgICAgICAgICAgICAgICAgICAgICAgICAgICAgICAgICAgICAgIC AgICAgICAgICAgICAgICANCiAgICAgICAgICAgICAg ICAgICAgICAgICAgICAgICAgICAgICAgICAgICAgICAgICAgICAgICAgICAgICAgICAgICAgICAgICAg ICAgICAgICAgICAgICAgICAgICAgICAgICANCjw/cXAwH7wjmYZplxW5Z7xmIn1AWt3JVA8wh5AqDLRk WGnkxpJnAhkWNwPdBJPlUfoOAtm1DPdeJQ3SzGSmF4 KiD7DyPEqiCR0SJGCzPIXsbWPyVOJdGFMkKdV2XOUaEHnnHS2XfNQlJQsjZDVoVVDoSbGuOIVbZVFjOJ YnBFVfPAJEYJ0XQuRjP1XqtM29VDMKQt8+XMeksaEeJziPCuL2OWYec2CdRZc0UW5YAZXpWgibb2MaJW OeVBJBPYxhIQ9QSSB0QRL4HDLaCc3AXJEmR783yyMo UX8BJb1SUsRkNG0tcp8HEAQtQNGcBfnBXof9VRjzZS8DgEYtZUoImr8jyfQshiKMn8HaswHumYOFdwjg XJ7qV3UvnMq2JBEHIPJCMA5kZCDqLO7cTp6eZHOzHNCqJtM0WYGABZ0AGRLjOYEipAIfWBGvXJOZWB3F KPzwXNC1XxnrlaMsgRZoPOrjXE5LHNKbavHpZIHdIK BSDQo+Su4QLV6hv8AaRSv1VxLyXQ8iew3VNDlWTzHiW7U0sVKeO3T8LQajEs1HDVVaSOFkJPDsHMQKVT zvBV9SAD6hkxD2PR6EuBOdNZBvKNGkeBFpDFq0R31liDXbFTlaLU2HZXB+Mau+Ig6EBWNiEWFmTRLkGj XfVFGTUeJyT1EzD3QBy3QtL4ZwKB97kCjphhCcFLvs PW1ZCL8sGYDrKZTOTN1TbDLgbW6btaI4RUWgQEBFJiHtC71pzYCvKQUgUTAxHJAqXx5JWPOsK5JusrHa nJyvnwPbJQNrHJOKYW1KKLzgjaOolSWyvJwpOR43sOxyIH1EYy0MIhXeOH1pth0KzRGgFj3BBQI8Qy2E AQWzRJZgPVKxOEB2QOXtBeRxAAnpSAAuDLWvOWQ7ST XaAMCwDE0FOzNjMRXlGYr1EYYpDGRjMWTznv7YAKYsXSZ6ZJY2TVPwDJUzARMkPEsyRVCwUUYsRFT5YC FtYWHjOL3BCwXlNSEmFQL1CPoaHBHfTWYhxo7WOECoNAOtFiUbAlOsILCyPKKiVFtjEDKkBQJ7KlO9BP SzPPFhGX6PUcUbARDjWAL1BejvJDWkPFTrlx8AXVSs FTIhFTTwRPTyQWTzBHJbUFhvGMZkQOD2KmO8IFNmOQZdOS8OFrNaHYNdCNp3EyJmFKCiOFAwpp5WQHQb JPDoGWtaHQFnIHHnZGDiXAcwGHRyTBXcYYl8TDEnSWAsHM9RLwDkTUBmDKFeOQbeLIXzTYFxyg5JEMFs DLRqSUI1RoOiVKYnQIRxBNdkNAQtANLhKiA6DZNhEA NsIC8OCzZoJEHjZDD5OcDlWIHjYLPwti2JTWCjZNUaUhAtPrWgDGSpHEVeCRmwOWIcSAM8DAB3PQMpST FyRM6VIpVrAGFzLmHiMRCkIXKjTAWzcq7QPRDfAHEaONX8SFRpUIQoJAYhKQzcTVGwMGG7UsOxDVWaSS QbPM1IKmQyQRKhEmX9QgwoHUPmJKJfst5HWJXyDLPh QctdBYQcPRQrMCCiTOunZAFzSXK6MRFnMCCxEJLbWO7SIhCsDZIkXvjzVPivHKCbZQAfar4RNHUrLXYf RYQhJUEkEDLvBJSgCRobQFEoASS8NbR7CYOwHEIzAB4QSdLiXCOiIie0KJuaVTXfDGLwhr3SHKOzEAP3 BLwmREQzKSZdCVRvLSehZBXrYJOfCAE6DKHzSVEcLU 0NJwFaCVMuIPMrLLSqBTVuXUWqgk0YZJSiEFP6PrV5QWVnZVBrUFDfMUgoDESgIHLnMnTfXWNxVRPoQU 0VNxIaHDDgRJR2TjKkTALhMTVmpz1EEFBsOQQ1Ofa2WmPpVGEjFJTpIYlxGEAsTFF0RJI5RCYnNKKhDB 4ZGpEfHDCuXJd5KLTeIKPoOHEeou4MEHWyKNH4NXUa VQKoTNAqWCMlLThpNHHpMXA1GGIhJJWhPVYfTS1AEgVyEWUaTAp0WsUeJHUfHQVfif3MIUVlVGT3OBjw NBMvAZPlFNCeLJrtNMKzNMYyEhGgPLRfJCChHT0LHeEqQDJeJUY1YZmiTPFaHHJnoz3XAJMnMHB4BIzw XZWrNBWbRJBnVLlxHIElISVtHOvgYCIoECTkMX6JAl FhOFhvITQSRou5CZwhZ3z1RJI1Ur5XI7Wjx3AaQDVmOUPRPGfrEG7essHoRDAmJl2OE1eBAofkUlIfWF X1YPQtUDE2XgCfSWV5SRT7O0QmPLYnCmO0Fk0yVDY2CaG8NsXsHDV8CyleZCX4OKByHcwjCPL1WIApQC YkZvOyEU7CYw9HCbP4JJE0pYPxOi3RMFDjZeVFMfYcDF9DFSn= ID Date Data Source [id number] 03/24/2021 02:35:53 PM EDT [facility] Name Value Range Interpretation Code Description Data Arabella rce(s) Supporting Document(s) Consults [facility] BGILFd2bUaRPBbXg51/JOMxfRHKiu8UtDQnxGLb2LVrnPSYtK4WgOMJ2oW8aMPX2KFiBBkVoFqEoZOO2 lbm [file] AgICAgICAgICAgICAgICAgICAgICAgICAgICAgICAg ICAgICAgICAgICAgICAgICAgICAgICAgICAgICAgICAgICAgICAgICAgICAgICAgICAgICAgICAgICAg ICAgICAgICANCiAgICAgICAgICAgICAgICAgICAgICAgICAgICAgICAgICAgICAgICAgICAgICAgICAg ICAgICAgICAgICAgICAgICAgICAgICAgICAgICAgIC AgICAgICAgICAgICAgICAgICANCiAgICAgICAgICAgICAgICAgICAgICAgICAgICAgICAgICAgICAgIC AgICAgICAgICAgICAgICAgICAgICAgICAgICAgICAgICAgICAgICAgICAgICAgICAgICAgICAgICAgIC ANCiAgICAgICAgICAgICAgICAgICAgICAgICAgICAg ICAgICAgICAgICAgICAgICAgICAgICAgICAgICAgICAgICAgICAgICAgICAgICAgICAgICAgICAgICAg ICAgICAgICAgICANCiAgICAgICAgICAgICAgICAgICAgICAgICAgICAgICAgICAgICAgICAgICAgICAg ICAgICAgICAgICAgICAgICAgICAgICAgICAgICAgIC AgICAgICAgICAgICAgICAgICAgICANCiAgICAgICAgICAgICAgICAgICAgICAgICAgICAgICAgICAgIC AgICAgICAgICAgICAgICAgICAgICAgICAgICAgICAgICAgICAgICAgICAgICAgICAgICAgICAgICAgIC AgICANCiAgICAgICAgICAgICAgICAgICAgICAgICAg ICAgICAgICAgICAgICAgICAgICAgICAgICAgICAgICAgICAgICAgICAgICAgICAgICAgICAgICAgICAg ICAgICAgICAgICAgICANCiAgICAgICAgICAgICAgICAgICAgICAgICAgICAgICAgICAgICAgICAgICAg ICAgICAgICAgICAgICAgICAgICAgICAgICAgICAgIC AgICAgICAgICAgICAgICAgICAgICAgICANCiAgICAgICAgICAgICAgICAgICAgICAgICAgICAgICAgIC AgICAgICAgICAgICAgICAgICAgICAgICAgICAgICAgICAgICAgICAgICAgICAgICAgICAgICAgICAgIC AgICAgICANCiAgICAgICAgICAgICAgICAgICAgICAg ICAgICAgICAgICAgICAgICAgICAgICAgICAgICAgICAgICAgICAgICAgICAgICAgICAgICAgICAgICAg ICAgICAgICAgICAgICAgICANCjw/xDAyQ0oqmDKglsS3D5qxMr6AOl7XKB7qp2JmQZHxOWkixzVaHyhN YtWcEMYcLasBSij2KPnfXB3TsYCdM7NmB4HcBFgkTD 9PJJKrUBBvbAHnVMHfGXTuGuZ3MVUbLZqvUM8OdIHaLZjvSSJsPYDlTzMvZOAxZNRmFUQkJKCvRMPHNJ QaRMHxNjKuVEByEIGkBNfkFFBSNSD5UDNnHhNaUMptIO3Dh1WtjGM7IGv+Rw1IMK2rh0CxAPi2GlUiAF 7aeq7LSSiRFpRuC9NzrbK1GDNqVCByOn5GERXgGROf dIQ4DkEeBCVOPqXzU2LrcH90PGODQk2+PSbxryVkSktKJcEpCYTsk6GjMFf4TS7SMMWeAIr8iTRcZ37o b0TrxOKfCpdfU8dvyRgspMEHOWpjZOGcdqajFSOsCRUhBL8bOp1mVGXtMCWeSxKtKZKNSF6VMZPyTWHu vSQoHDFnKBMZZD5HOQhrLHI8AzgpseBqxVCrDLxjNV 9QYXJlbnQgNDIgMCBSDQo+Fj7RMF1ze2GuMJh4IIGhPR2jkg1EXJeGDeVoW4O0qUBjT7H3JWjvHg1XIK CwGTNcLZBqLHKWNIksLJ8QQL6cllT4IH3EdJAcTBPiECVltOBkQIi5R22ghHXfEKhpCZ9EULC+Mau+Pg 5BXMAdVRUoLOIgRhIlMQOPXyVqE4WnR4BYl2KqB9Uc XV49eYqnyfTtJRvlAT4XWD8cUXTmMUFHUH0FaTDfqZ3lyrD6NnVcLGQCUmAvU62eeODlTGFnWIDfQXSl Xx7NNSEcS8EgzlUpzFpytaDbYPVuDCLHMO5BSPhephLdmRLcpIemHD16yWmnYZ1MGb5YCuFiPE7fje1W mWJdIn7MUFX3FH9DJBGuODPrHTFeCHX8HLQfZwVnUJ zoQHJoIZCtRON4DRGrWMLgBA7ZGrAhFCOfGlczIFawHXZdCJDcof4KPSDwRYH4AZDoOoYkKAWmCPOeJZ tpRAZhQULpCZI8SYKbUVIpDA6QKlZdOROoHIKxZmHtGRQaZAGbjh3XNXDzUANmOaF0HWNvHXMwRMMrBB aqJXHnDHM7YtcgNTFxFGOaXU4VCiFmUSOqCXJ2WLDw NDDdBUSnuw7ADZIoDNRoGVI8NpEyGWYcWTToZNjuELRzEWE6LYf6ZPHvNFDbSW3KZvMvMTFrATS6OSqb EUXjEDJrlc2ZLEWyBZFoNZE4HLNzLLQkTHHiMJtvEXIaUNMySJD9VHRjBDVhBH6YShWmUDPaPCN0RUHy JVXxYSHcwo5ZWXOiKALsYKA7WCYoAEZkBKVzKQwlYO DuRVX5JAe6TMNdISEvBW4ELsYeWCHsFChrYSBfXGUyRYUvry1NBQPtUUZoBrI0DRVwMJHcKADsSAnfZO MwRKU0RFZ5UELqPTIhWY3KKiOfVHCnCYwvBdRxFTEqILXqmc5ZAPDfENYgHALtCYVpVULlRFNyTPdqJD VyEDS4ZGSpMSKkXNLqIV2OKhElJHNkEXj5OFMrEMJf GSWeuv1SQPAxQRSvHWI8TDQqAZOpACVfWZblZYOnZYJrTbB0GIDyYSImVU5ZPpRtEMNsAuV0XXOdBPLe AMAfgu2AHLTtPIMuOLfpNCFeRMIgLAGhOMiwKOFgJBPbMGD9COImGAXbJC9ZDlEnYNOwMfYyXVZtWVPw MBWodj6TYRByWXPmZcS8JJJzHXRtEAToCZtmFOYuKH CkOTO7BAPiNKPnWU3WDvEeLBOfNpC0PYMdRQYqOQGipk5PCQKuSPNwVIYkDPYzIAHpYFHtHPriWIKoDJ W0QKN8FOQePBXlGZ3YIxIeEJLpDbT7FHDgHBVxWXYyow3LOUZmXLOmKYTvJCBbJWMoNFKmDNepTVIfIJ N2AaS9OSNwSNPzVP4HJiUbXAZeJbp9TSsrTCChTZSr cn5BWHYiVEVwLFX1MLGcKZWeQRMzORaqTZNxAVV2QgS1ESLqFEHzGL9RDzMvLJQwYgn6WVGzEAWiLLAj ro4FOGQiVZO9TDD8HOHpATPgMIQtNIweXFXsUCYqFnSmWXNmICBgMZ1XKjSaKIUcOEYjOEbsMUPaTRPi lk4JaRKmtPggdt4WLDyRDq1RnXgaDAF0HQvaEd6pqE V0YXKrAYJUUf6YobHkMXDfTDNTHXkhRWVaWBkpSLScCFV9VEQwVXZuPNL7KUK7HHGsIzOiPTTgZhX4Ry B2C8Q0QoQsOVAjWlV8CmO8LnjbKnj2TcM4KnMuNvAiQpA+GR8jRMe+Mq6Zw3YfotN2khYzWPk1TLSoQR 5CTUHSH2GMNi== ID Date Data Source [id number] 03/24/2021 02:16:15 PM EDT [facility] Name Value Range Interpretation Code Description Data Arabella rce(s) Supporting Document(s) Care Plan [facility] BZDSJq7vEuUTQaHj44/BJMiaYXOzq0FxKZheIYm6DAjhFIHeD5OnVTW7vQ1cYDU9IObQEoJqEsPoYYQ4 lbm [file] Cj4+QAkdhYHegNexCCYHKjFbCIJ6JRwiPBRGCd7H ID Date Data Source [id number] 03/24/2021 01:20:24 PM EDT [facility] Name Value Range Interpretation Code Description Data Arabella rce(s) Supporting Document(s) Consults [facility] PHZTQr8qVgYFCxOr70/PDEbuDXVpw6QhJKyoXMx3SNjhSASrR2GcLKJ0dV2kMIQ0MQuWPhXxFqVuAOI2 lbm [file] BSDQogICAgICAvRjEgMTcgMCBSDQogICAgICAvRjIgMjAgMCBSDQogICAgICAvRjMgMjMgMCBSDQogIC DsFHJnBlRdWuRzWCWAGDwvCCIxOTBjHxSgCgzcITRRPk9KPqItTJJiCX8dwdKheXF0RQS+Tp8DMFGrRR 2YgFQEB0YdeWYjJUcwT3GKQT6RMGT6LZ1QsXVaAZ3D sFOQW6BwmLIcAl9zXJYfa2NpVu5cQ3ZFBQFUGENuHGrtAZkiRAMnEJb8L1S0SPWcX6XIX262jWEufPh7 Mk8iE9UEHYmLInCbCWqwSCohSBJaLUw1G0Q5LHClX6ZNP3LlRuLsxtYfO9R+ZfOiPWBESQ4PFYRDZZy4 C8N1sKUjG4Z7zBmDwAZ8AJ9PAE1OrHLzwXUuv56+Pi AOVmStAZEkL5ACOELRTyVcKNjzVXjwGFEuOXz4V1G5CAYyB5TNN4gqX1o1PZ1+GeMGMjMeSDAwQs0UTh VeGt0NCvGmVK0fri9WMzEpDUNbFeqDMll4U2rvhqm5xVFkObW0V1Q4FyQ0tQCjZE6NR2F4vDReIYV3GP RhdGE+Ju4Qd8PmWLTsGBw2E2kzGVGvUEMrAnTrjR56 J++4yszboSV9S8w4GAODlHDgaJiFczTgQ7cKXEV7b2U5LAo/Hm6XZPU5wEi2xOVdSKRhNCx0oU5keRn7 IwDkZB26HOGqENvbrY1pBmi3L8Upd7JwSb5hDv0vyTDdJo6DQaMsHEV9hbBrWzZOGoK5cVlxyrhlOIY2 R2a2jCU4Kz49o4qpncBzq1GwVhT0XCofQKSzEeWbcq LoHMS6xgZoqN5sjzWpIk8HKFDwDLftrlUgEnNOLw5YTrNbYX64NyautD5pyLM+DQogICAgICAgICAgIC AgICAgICAgICAgICAgICAgICAgICAgICAgICAgICAgICAgICAgICAgICAgICAgICAgICAgICAgICAgIC AgICAgICAgICAgICAgICAgICAgICAgICAgICAgDQog ICAgICAgICAgICAgICAgICAgICAgICAgICAgICAgICAgICAgICAgICAgICAgICAgICAgICAgICAgICAg ICAgICAgICAgICAgICAgICAgICAgICAgICAgICAgICAgICAgICAgDQogICAgICAgICAgICAgICAgICAg ICAgICAgICAgICAgICAgICAgICAgICAgICAgICAgIC AgICAgICAgICAgICAgICAgICAgICAgICAgICAgICAgICAgICAgICAgICAgICAgICAgDQogICAgICAgIC AgICAgICAgICAgICAgICAgICAgICAgICAgICAgICAgICAgICAgICAgICAgICAgICAgICAgICAgICAgIC AgICAgICAgICAgICAgICAgICAgICAgICAgICAgICAg DQogICAgICAgICAgICAgICAgICAgICAgICAgICAgICAgICAgICAgICAgICAgICAgICAgICAgICAgICAg ICAgICAgICAgICAgICAgICAgICAgICAgICAgICAgICAgICAgICAgICAgDQogICAgICAgICAgICAgICAg ICAgICAgICAgICAgICAgICAgICAgICAgICAgICAgIC AgICAgICAgICAgICAgICAgICAgICAgICAgICAgICAgICAgICAgICAgICAgICAgICAgICAgDQogICAgIC AgICAgICAgICAgICAgICAgICAgICAgICAgICAgICAgICAgICAgICAgICAgICAgICAgICAgICAgICAgIC AgICAgICAgICAgICAgICAgICAgICAgICAgICAgICAg ICAgDQogICAgICAgICAgICAgICAgICAgICAgICAgICAgICAgICAgICAgICAgICAgICAgICAgICAgICAg ICAgICAgICAgICAgICAgICAgICAgICAgICAgICAgICAgICAgICAgICAgICAgDQogICAgICAgICAgICAg ICAgICAgICAgICAgICAgICAgICAgICAgICAgICAgIC AgICAgICAgICAgICAgICAgICAgICAgICAgICAgICAgICAgICAgICAgICAgICAgICAgICAgICAgDQogIC AgICAgICAgICAgICAgICAgICAgICAgICAgICAgICAgICAgICAgICAgICAgICAgICAgICAgICAgICAgIC AgICAgICAgICAgICAgICAgICAgICAgICAgICAgICAg MHRaRAUtGKe4W7ufFIKiMGRjVA9kKIu9Lh5+FVhDVxLdMYF9ujYkcM8JSC0ey0ZtLXokTSItg3HxXPb4 OJ3TVWXaREsnYR4PZOqohw1DQTBkZMXhaASCh9edDaTrJPN4PCYeUocpTI1LJCClP6etdaTrJZJrAOMV SCmqGWFKSDzfCNFXPQDhDKJvNpQnNRkhZT4Ub4HilG A0DQo+Aw3EKZ3hc0ZaTAobXyAjVL9fuz0NSXuIQiWnX7ElefG6AJNjPLWnDr5UJXPgNCFhxKKhUgHyGO VHIkMlT9XisM41IEAWGb4+OXwcwcEgRsiIYySlRBYzp3SyHSs9UG7TXQLsDUu4rYUuS91la1HjhWYbLv loTLM3FYArafAXXpSLttO6OSqbUYCvNHGxIB3wJl7m UYVkHMZkRrG4XHDMDE7MACCiTMQovEDnZDFxDFGYDA3OPQalNYQ0PsszduWeuULwEHqvHW1NHUHmjyCw MzIgMCBSDQo+Ef4JMF5tr9UuGOoaBOCcWV0etp4FDQpMEoVwF8T4iABfI9J1GVsrJd2DKCHkPKRyTvTc EBMFGMlcSQ5ILR0zyoX1WW0BlNBfPFIlUPMoqSKdQA e8S81zfSCbWLubVX1ENXA+Mau+Su0HZRTsBSGpQJIhJaXwTSTAJxRrI4KpE4KSa2LiS7DzEC98eFtfbw SgMTrjFS7WEX6zTNXtPEHQPY2QqHLfaZ0ycwLlCaQsPTLTWjPnL49taLDcQHQmKFLnFXYtDj1KQSWeU0 NqrfOpfMpeynYwJKZcUCRHNQ8TKQmjjhKtdFZwwRrj QU53eMhhQU5KJy6RHvPtMF4eic5AdDQtXr1NJLVmXK0HDZGyCZDnHFBiQPV3PZCzLyCkCQntAIPrPLVs JTC2XXYvAGOnKP7SMhYoYSUuTlEqUFGgOXBfCMSptq6RAAEoUYUpDaE7HBWoCRDdSZAcXCctJNXbPDUr CVJ5FNKeCDPaFD9TGcTtZSXfTFF3FnMjUQEqBYCxtm 6COVUiVCIaNrp3KZChDUZxHYYpZTyhGIHhPSW8HYP7GCFrNELpLH4UDaUgVPRpHJxsPoykIVFzPSUgbj 1AQAAvVHNjCGWcWBFeGSUiBIEuHDbbHLKrVVBjXdI9PCPwQGFbWZ3EXzFqCXUyVPF0ElKoINYvNFEkjh 7STCJbATUbTdJ6LgOmWMBcHAEkVIukGPMeJBE7YJHn YELjZQErIL7MJyClDRGmVXDkAvLlKWLhUNNktu4NGXJpKSQtJSKeQPWtOIMwTQFrYXhnKYHvCWU7CPqa WZAzSKQnAD0XFwToPWXmIVV8HrnyQEXfFNArbg1WTWUnOEQjOPd0GHQrHAGdGNXmCTrlMDJiKVR4DVG6 AKVmOFDaSB7KRrWzNAJpKJozVqAdLISkKXQclm2KMZ OzNQNrPkPhRFEzQAOeVTDvCLglIBOtCLS0OTF7FLTnJQHeMT0IPsNyOSSsBOswVdYmXAMbQDWjze5FLX EkUSWbCEI2JTZaYQNbWWKeVTdbHVEhSVU2WPJeVYHePGUuOR4MAhTpKBTlZZx3XkonGOMiPAVmai2EOQ GsAMIeAActTjEfLSHlLTUsTYfmZSNdCHEeJSe8BBMi KXNgDR5SKkLpUQFhGgXoEeKkOVDgMFNxup7HKZPbDTZrGVV1PMTlFHTnYQLoTTtyJZFmZIBxLzR3LWWw HAZtHZ3IQtUdIQPkPhJqXJKhCYTjXFUrnh6QMVZpVSKeQoO0AcDrRFOeKMObHUdcUQWiIHIaCUCiPUWy TNWbLF2QIfRsHMatMDBPZdz0KMgyT7d3ZWFhPH1RS2 Vlj8QsHlNfOVFJHAxdNJ1eudMjHFPyWu1BS0jNHhfiFXEvEJN9OGLiBsI2FZVpNGU3KOJsKbKaQPQhS2 YmHD7cUBJhU0LsATQ4WJEtAOIrFOInMHkuDAEcDPB5GNI5FNN4NeXbVG7CYk5GBqJ5WTT4aEJlQa5GZa W9KWMEZsMzCB0OWOz= ID Date Data Source [id number] 03/24/2021 12:26:04 PM EDT [facility] Name Value Range Interpretation Code Description Data Arabella rce(s) Supporting Document(s) Progress Notes [facility] SKDTMy4iVlIYDsRk11/BOUvnYYLdq7YlECaqVAj9XLkwHZPkK2IoVOT7bB5sPBG5MHzVCzOwPnPiGIA8 lbm [file] WtBJI2O0OfHFH3MtS1QPRePbPeIO9YCn9FJwB7EJS3jMBkTg0ODvK2RUEEItWmWT6USYw= ID Date Data Source [id number] 03/24/2021 12:13:35 PM EDT [facility] Name Value Range Interpretation Code Description Data Arabella rce(s) Supporting Document(s) Progress Notes [facility] HIPORf0fOgRUKqIy15/ZEXvtWNPps0HwRSimHWn2KGqnLASvG8GjBSU1xL5hONU7EPfJRfIxIxWzBZK8 lbm [file] 0K ID Date Data Source [id number] 03/24/2021 05:26:27 AM EDT [facility] Name Value Range Interpretation Code Description Data Arabella rce(s) Supporting Document(s) Nursing Note [facility] AINPHa8fUcAZCwEe22/NTOvqHKFnw6WyBRxmHRq0PGygFEDdJ4SdBCJ8pP9vBEB5UOcARcQtMbIeMCY7 lbm [file] NbVFJhKmN3EwU0XcYiPEHwLxNwNO3HFc4ZYpV7KHG3pDObNp0BSvZyVDdTMfKeDY5BRKf= ID Date Data Source [id number] 03/24/2021 05:34:00 AM EDT [facility] Name Value Range Interpretation Code Description Data Arabella rce(s) Supporting Document(s) AST 12 IU/L 15-37 Below low normal [facility] Sulfasalazine and sulfapyridine have the potential to falsely depressAspartate Aminotransferase results. Baseline values before medication administration are recommended. ALT 17 IU/L 13-56 Normal (applies to non-numeric resul ts) [facility] Sulfasalazine and sulfapyridine have the potential to falsely depressAlanine Aminotransferase results. Baseline values before medication administration are recommended. Alkaline Phosphatase 53 mIU/ml 50-136 Normal (applies to non-num madiha results) [facility] Total Bilirubin 0.70 mg/dl 0.20-1.00 Normal (applies to non-numeric results) [facility] Blood Urea Nitrogen 6 mg/dl 7-18 Below low normal Health system Creatinine 0.62 mg/dl 0.51-0.95 Normal (applies to non-numeric resul ts) [facility] N-Acetylcysteine (NAC) and Metamizole em ve the potential to falselydepress Creatinine results. Baseline values before medication adminstration are recommended. Patients undergoing treatment with phenindione will have falselydepressed results. Patients on phenindione therapy should be tested with an alternativeCREA method.Toxic levels of acetaminophen may lead to falsely depressed results forpatient samples. Glomerular Filtration Rate >90.00 mL/min/1.73m2 [facility] GFR Reference Ranges:Normal Function or Mild [...] of Health and the National KidneyFoundation. The [place] method used in calculating this result is traceable to IDAL standards. Glucose 91 mg/dl 70-110 Normal (applies to non-numeric resul ts) [facility] Sulfasalazine has the potential to false ly depress Glucose results. Sulfapyridine has the potential to falsely elevate Glucose results. Baseline values before medication administration are recommended. Calcium 8.2 mg/dl 8.5-10.1 Below low normal [facility] Total Protein 6.2 g/dl 6.4-8.2 Below low normal [facility] Albumin 2.8 g/dl 3.4-5.0 Below low normal [facility] Sodium 141 mEq/L 136-145 Normal (applies to non-numeric resul ts) [facility] Potassium 3.9 mEq/L 3.5-5.1 Normal (applies to non-numeric resul ts) [facility] Chloride 113.0 mEq/L 98.0-107.0 Above high normal [facility] Anion Gap 8.1 [facility] Carbon Dioxide 23.8 mMol/L 21.0-32.0 Normal (applies to non-numeric results) [facility] The above 16 analytes were performed by [facility] [id number], ,[place] [address] ID Date Data Source [id number] 03/24/2021 05:34:00 AM EDT [facility] Name Value Range Interpretation Code Description Data Arabella rce(s) Supporting Document(s) Magnesium 2.0 mg/dl 1.6-2.6 Normal (applies to non-numeric resul ts) [facility] The above 1 analytes were performed by [facility] [id number], ,[place] [address] ID Date Data Source [id number] 03/24/2021 05:26:00 AM EDT [facility] Name Value Range Interpretation Code Description Data Arabella rce(s) Supporting Document(s) WBC 6.03 x1000/ul 4.80-10.00 Normal (applies to non-numeric re sults) [facility] RBC 3.58 x1Mil/ul 4.20-5.40 Below low normal [facility] Hemoglobin 9.3 g/dl 12.0-16.0 Below low normal [facility] Hematocrit 30.2 % 37.0-47.0 Below low normal [facility] MCV 84.4 fL 81.0-99.0 Normal (applies to non-numeric resul ts) [facility] MCH 26.0 pg 27.0-31.0 Below low normal [facility] MCHC 30.8 g/dl 32.2-37.0 Below low normal [facility] RDW 16.3 % 11.5-14.5 Above high normal [facility] Platelet Count 230 x1000/ul 130-400 Normal (applies to non-numeric results) [facility] MPV 11.6 fL 9.4-12.4 Normal (applies to non-numeric resul ts) [facility] Neutrophils 46.6 % 40.0-74.0 Normal (applies to non-numeric resu lts) [facility] Lymphocytes 41.1 % 19.0-48.0 Normal (applies to non-numeric resu lts) [facility] Monocytes 9.1 % 3.4-9.0 Above high normal [facility] Eosinophils 2.0 % 0.0-7.0 Normal (applies to non-numeric resu lts) [facility] Basophils 1.0 % 0.0-2.0 Normal (applies to non-numeric resul ts) [facility] Immature Granulocytes 0.2 % 0.0-0.5 Normal (applies to non-nu meric results) [facility] Nucleated RBCs 0.00 % 0.00-0.20 Normal (applies to non-numeric r esults) [facility] Abs. Neutrophils 2.81 x1000/ul 1.92-8.31 Normal (applies to non-numeric results) [facility] Abs. Lymphocyte 2.48 x1000/ul 1.20-3.70 Normal (applies to non-n umeric results) [facility] Abs. Monocytes 0.55 x1000/ul 0.14-0.97 Normal (applies to non-nu meric results) [facility] Abs. Eosinophils 0.12 x1000/ul 0.00-0.76 Normal (applie s to non-numeric results) [facility] Abs. Basophils 0.06 x1000/ul 0.00-0.22 Normal (applies to non-n umeric results) [facility] Abs. Immature Gran. 0.01 x1000/ul 0.00-0.02 Normal (appl ies to non-numeric results) [facility] Abs. Nucleated RBCs 0.00 x1000/ul 0.00-0.02 Normal (appl ies to non-numeric results) [facility] The above 24 analytes were performed by [facility] [id number], ,[place] [address] ID Date Data Source [id number] 03/23/2021 11:42:40 PM EDT [facility] Name Value Range Interpretation Code Description Data Arabella rce(s) Supporting Document(s) Care Plan [facility] ZNOKCz1hZsSHKyXn77/FYJteKAGvk3PxZJbaWAt7AKkbLIEeU9QgDYM4qI3rQIY5FHaJXrNsHbMhRIL8 [facility] [file] AgICAgICAgICAgICAgICAgICAgICAgICAgICAgICAg ICAgICAgICAgICAgICAgICAgICAgICAgICAgICAgICAgICANCiAgICAgICAgICAgICAgICAgICAgICAg ICAgICAgICAgICAgICAgICAgICAgICAgICAgICAgICAgICAgICAgICAgICAgICAgICAgICAgICAgICAg ICAgICAgICAgICAgICAgICANCiAgICAgICAgICAgIC AgICAgICAgICAgICAgICAgICAgICAgICAgICAgICAgICAgICAgICAgICAgICAgICAgICAgICAgICAgIC AgICAgICAgICAgICAgICAgICAgICAgICAgICANCiAgICAgICAgICAgICAgICAgICAgICAgICAgICAgIC AgICAgICAgICAgICAgICAgICAgICAgICAgICAgICAg ICAgICAgICAgICAgICAgICAgICAgICAgICAgICAgICAgICAgICANCiAgICAgICAgICAgICAgICAgICAg ICAgICAgICAgICAgICAgICAgICAgICAgICAgICAgICAgICAgICAgICAgICAgICAgICAgICAgICAgICAg ICAgICAgICAgICAgICAgICAgICANCiAgICAgICAgIC AgICAgICAgICAgICAgICAgICAgICAgICAgICAgICAgICAgICAgICAgICAgICAgICAgICAgICAgICAgIC AgICAgICAgICAgICAgICAgICAgICAgICAgICAgICANCiAgICAgICAgICAgICAgICAgICAgICAgICAgIC AgICAgICAgICAgICAgICAgICAgICAgICAgICAgICAg ICAgICAgICAgICAgICAgICAgICAgICAgICAgICAgICAgICAgICAgICANCiAgICAgICAgICAgICAgICAg ICAgICAgICAgICAgICAgICAgICAgICAgICAgICAgICAgICAgICAgICAgICAgICAgICAgICAgICAgICAg ICAgICAgICAgICAgICAgICAgICAgICANCiAgICAgIC AgICAgICAgICAgICAgICAgICAgICAgICAgICAgICAgICAgICAgICAgICAgICAgICAgICAgICAgICAgIC AgICAgICAgICAgICAgICAgICAgICAgICAgICAgICAgICANCiAgICAgICAgICAgICAgICAgICAgICAgIC AgICAgICAgICAgICAgICAgICAgICAgICAgICAgICAg ICAgICAgICAgICAgICAgICAgICAgICAgICAgICAgICAgICAgICAgICAgICANCjw/wIBhC9jhgFHsytV2 Z3ywKq3YIx6CUW2wy1GtIEHdCUgwwgGmFbiEWoTwNDBmOvjASxp3UKsrKB9ZwBPfN4LfB5MjLBtcAN6I PEReXMGzoCHwTGToNHQeOeG2JCRxVLtmZS2KxYEzFV maRUPwSXMuIB6EKVAxJ740byDcCZ4AZa3NFvCeOP4plp2EHaEiNGCcZfpHHfw3GWjoGK6FuZHtmWClLg XhIVAOPjLaY2ygm2LxLrWeSJBWHFjnXX4Ci4TedAPoNBk+Gg8TLW7fd1StBKmtOjZhRK9ppd3DJHbEUy IqM6FnlWwwRHJmvhHjBTkwkoKmwGNQVYL8KH1hYYJp haFbBZoxPTFXWYQ4NNywRJWeZgAgYFLkNTv0UuJQEGhLJhTpL8Hbf7NsBwB1QFHwEhPrXYxsHTSkUxC6 XY45rKboRL9LGWEpSMKtLC98KTG8NJPwRv9HAa7YStAaEM8ydf9SXqmkUBHeCugXCxu8UFhlHK5SaWKo X7QlbKMgv3xWCwVdZ5TZXEDeRYOlIu8UNVWlDzYwRV YkROmaWU6xHQRnENHLhBbnrnD0HL6JTQ2osxDnWK8ECwUeTm7hQl6YLfGjY0WzM3TbZJIhIBUUNBrjLT 1FMIhcUC8hCZ3Zn2HCcPWdaX6zaj3ZZEIiFZBlJfvxcr0OVxeyC5Y9gOlyVUPzThPlCLYNIFeeEW6TWQ FeGKG7XSJwRPEjNSMZUeUgB16cPW7QR4Tck12gKiI9 ZNPmZmPrDBkzVV87yTmfbfOkgINtuHqiEL6WNm1+DQplbmRvYmoNCnhyZWYNCjAgMjgNCjAwMDAwMDAw XFUfZlP3IpMmOo5LTOTtVWVlNKOmNgVsKMQlIROtPQxmBDOsQQCfZcGtZEGqKKFyDO7LXiGyVMEuFiT2 TFNzWEQsVWOlxx4OFRNzTSPyHYC0FrInROBeTLBiGT ojMWKsVNDaBRT9ZTIiWYGrTG2LCtBtQYBgJNYhCsWlHUPrWAEetr1SMKOsATHdApTbQSZoOKCvGXFkJU ufOWUbNGGtKhW3XUDnZLJdJE7XXxOyZFQpUHL8TDVoIGMqPIJgzg5LURXjRCHzAMK4SqYgAHNyQQBkER crERUdVCX3WsjkGLFcCHQbIN8AFtGsZSXbWNF1JUTj ARFhDHCkfh4NUALpYHXmXrYqYEInSDOyYWUtAZsbILLhIKH5HJP5ELRpMPFvBU8KEyUbEVKbWIk4KdNc KFUaHNXaca2ACPSzQINjPyn5PjKhIDVyRKZtOGarRKHcIXA5PPKuMLKjHXDrWI4AKtIfFBMjBHbcMSOp DLWiKEFeug4RDZMqDJGeXKO6BoDvUAXgWGGrTIadPO VkDZZ3RGU9YGHpMDYzYF1CJcRxYZXzDtTeFKGbARLyJFMzjm4PVXWqRTOaZGT2WFIpDXKmEBCbQHysPC OjYWGmKjG5YXVxQJDxKE7BXyUmZKGsWmIoRzRwFUXyHVNbfq1ZMOMtNBTjXwOgNWWgDAPvISEgECaoST OxFCZzClx5WHEtTVQhCC3PTuLlQWDvCeD1OnPjVRBa USCjto5JdFBurCuexh9NAHaXAt8SfSkqDSL8HLvfWq3quCYbUnMsTKTCMl3TirUpYNYbTGYBNTzbOMJb EKsdZWg4YkC3HPHkICQlFtUiJRZvSBOrFnMfTPxvFaixQnV1ABS4BGseUjBiUJRbVLC1E8SmSfE8WkNy YRP6YQXzQQQ+WE8rYRp+Te0Kx8UolxA9ubObQJtrJkQ5MP1HKCITI6OUDu== ID Date Data Source [id number] 03/23/2021 10:26:00 PM EDT [facility] Name Value Range Interpretation Code Description Data Arabella rce(s) Supporting Document(s) Glucose, Fingerstick 103 mg/dl 70-110 Normal (applies to non-num madiha results) [facility] The above 1 analytes were performed by [facility] [id number], ,[place] [address] ID Date Data Source [id number] 03/23/2021 10:23:00 PM EDT [facility] Name Value Range Interpretation Code Description Data Arabella rce(s) Supporting Document(s) Lactic Acid 1.8 mMol/L 0.4-2.0 Normal (applies to non-numeric resu lts) [facility] The above 1 analytes were performed by [facility] [id number], ,[place] [address] ID Date Data Source [id number] 03/23/2021 09:48:00 PM EDT [facility] Name Value Range Interpretation Code Description Data Arabella rce(s) Supporting Document(s) AST 12 IU/L 15-37 Below low normal [facility] Sulfasalazine and sulfapyridine have the potential to falsely depressAspartate Aminotransferase results. Baseline values before medication administration are recommended. ALT 16 IU/L 13-56 Normal (applies to non-numeric resul ts) [facility] Sulfasalazine and sulfapyridine have the potential to falsely depressAlanine Aminotransferase results. Baseline values before medication administration are recommended. Alkaline Phosphatase 56 mIU/ml 50-136 Normal (applies to non-num madiha results) [facility] Total Bilirubin 0.80 mg/dl 0.20-1.00 Normal (applies to non-numeric results) [facility] Blood Urea Nitrogen 7 mg/dl 7-18 Normal (applies to non-nume ny results) [facility] Creatinine 0.67 mg/dl 0.51-0.95 Normal (applies to non-numeric resul ts) [facility] N-Acetylcysteine (NAC) and Metamizole em ve the potential to falselydepress Creatinine results. Baseline values before medication adminstration are recommended. Patients undergoing treatment with phenindione will have falselydepressed results. Patients on phenindione therapy should be tested with an alternativeCREA method.Toxic levels of acetaminophen may lead to falsely depressed results forpatient samples. Glomerular Filtration Rate >90.00 mL/min/1.73m2 [facility] GFR Reference Ranges:Normal Function or Mild [...] of Health and the National KidneyFoundation. The [place] method used in calculating this result is traceable to IDMS standards. Glucose 48 mg/dl 70-110 Below lower panic limits [facility] Sulfasalazine has the potential to false ly depress Glucose results. Sulfapyridine has the potential to falsely elevate Glucose results. Baseline values before medication administration are recommended.Repeat and Verified Called To (First Last):OBEY VALENTINE Degree/Accreditation of Person Called:RNLocation Called: [id number] Tests and Results Called:GLU 48Additional Tests that were Called:Read Back (Y/N):YDate:03/23/2021Time:2148By:CARTER CORDOBA Calcium 8.2 mg/dl 8.5-10.1 Below low normal [facility] Total Protein 6.6 g/dl 6.4-8.2 Normal (applies to non-numeric re sults) [facility] Albumin 3.0 g/dl 3.4-5.0 Below low normal [facility] Sodium 140 mEq/L 136-145 Normal (applies to non-numeric resul ts) [facility] Potassium 3.3 mEq/L 3.5-5.1 Below low normal [facility] Chloride 114.0 mEq/L 98.0-107.0 Above high normal [facility] Anion Gap 8.3 [facility] Carbon Dioxide 21.0 mMol/L 21.0-32.0 Normal (applies to non-numeric results) [facility] The above 16 analytes were performed by [facility] [id number], ,[place] [address] ID Date Data Source [id number] 03/23/2021 09:30:00 PM EDT [facility] Name Value Range Interpretation Code Description Data Arabella rce(s) Supporting Document(s) Magnesium 2.0 mg/dl 1.6-2.6 Normal (applies to non-numeric resul ts) [facility] The above 1 analytes were performed by [facility] [id number], ,[place] [address] ID Date Data Source [id number] 03/23/2021 09:30:00 PM EDT [facility] Name Value Range Interpretation Code Description Data Arabella rce(s) Supporting Document(s) C-Reactive Protein (Non-Cardiac) <2.90 mg/L 0.00-3.00 Normal (applies to non- numeric results) [facility] The above 1 analytes were performed by [facility] [id number], ,[place] [address] ID Date Data Source [id number] 03/23/2021 09:05:00 PM EDT [facility] Name Value Range Interpretation Code Description Data Arbaella rce(s) Supporting Document(s) WBC 6.19 x1000/ul 4.80-10.00 Normal (applies to non-numeric re sults) [facility] RBC 3.47 x1Mil/ul 4.20-5.40 Below low normal [facility] Hemoglobin 9.1 g/dl 12.0-16.0 Below low normal [facility] Hematocrit 29.8 % 37.0-47.0 Below low normal [facility] MCV 85.9 fL 81.0-99.0 Normal (applies to non-numeric resul ts) [facility] MCH 26.2 pg 27.0-31.0 Below low normal [facility] MCHC 30.5 g/dl 32.2-37.0 Below low normal [facility] RDW 16.8 % 11.5-14.5 Above high normal [facility] Platelet Count 228 x1000/ul 130-400 Normal (applies to non-numeric results) [facility] MPV 11.4 fL 9.4-12.4 Normal (applies to non-numeric resul ts) [facility] Neutrophils 54.6 % 40.0-74.0 Normal (applies to non-numeric resu lts) [facility] Lymphocytes 34.7 % 19.0-48.0 Normal (applies to non-numeric resu lts) [facility] Monocytes 8.7 % 3.4-9.0 Normal (applies to non-numeric resul ts) [facility] Eosinophils 1.1 % 0.0-7.0 Normal (applies to non-numeric resu lts) [facility] Basophils 0.6 % 0.0-2.0 Normal (applies to non-numeric resul ts) [facility] Immature Granulocytes 0.3 % 0.0-0.5 Normal (applies to non-nu meric results) [facility] Nucleated RBCs 0.00 % 0.00-0.20 Normal (applies to non-numeric r esults) [facility] Abs. Neutrophils 3.37 x1000/ul 1.92-8.31 Normal (applies to non-numeric results) [facility] Abs. Lymphocyte 2.15 x1000/ul 1.20-3.70 Normal (applies to non-n umeric results) [facility] Abs. Monocytes 0.54 x1000/ul 0.14-0.97 Normal (applies to non-nu meric results) [facility] Abs. Eosinophils 0.07 x1000/ul 0.00-0.76 Normal (applie s to non-numeric results) [facility] Abs. Basophils 0.04 x1000/ul 0.00-0.22 Normal (applies to non-n umeric results) [facility] Abs. Immature Gran. 0.02 x1000/ul 0.00-0.02 Normal (appl ies to non-numeric results) [facility] Abs. Nucleated RBCs 0.00 x1000/ul 0.00-0.02 Normal (appl ies to non-numeric results) [facility] The above 24 analytes were performed by [facility] [id number], ,[place] [address] ID Date Data Source [id number] 03/23/2021 07:56:26 PM EDT [facility] Name Value Range Interpretation Code Description Data Arabella rce(s) Supporting Document(s) Nursing Note [facility] [id number]/IVJezLNIyu9GtTJovKHy0NJbeCUTqK0LkYLI7hB4yRKT6JUjKNaAxHaUxOOH6 lbm [file] 9GDQo= ID Date Data Source [id number] 03/23/2021 06:01:26 PM EDT [facility] Name Value Range Interpretation Code Description Data Arabella rce(s) Supporting Document(s) H&P [facility] XPYZHk3lGpYYEcSr51/RKInpIZQxp6CiXNguJSl5NTxqRWKoH0IfVPJ6dG6cMOO0WYcQPmXwWsJfIFH1 lbm [file] AgICAgICAgICAgICAgICAgICAgICAgICAgICAgICAgICAgICAgICAgICAgICAgICAgICAgICAgICAgIC KqCWCaBICnUFYxRVWcDCGgMMWlNO7ZDGVhGUTtYHYe ICAgICAgICAgICAgICAgICAgICAgICAgICAgICAgICAgICAgICAgICAgICAgICAgICAgICAgICAgICAg IMPcXHPgWTWeECWiPONkJMQfTEEaQJXuYTVkZSDzRT0OUNXmMHTgDSQjGKHkFOGbCVEpLCXaZSEsTJSx ICAgICAgICAgICAgICAgICAgICAgICAgICAgICAgIC GaNVYqDVXeMEHtYOOwMNGcBBZeCVXzOFKzYLCeGYLdETNcFJKdFOQvNK9QGYZtURAuEJDjWDKgQYUfZD AgICAgICAgICAgICAgICAgICAgICAgICAgICAgICAgICAgICAgICAgICAgICAgICAgICAgICAgICAgIC OpGDArNZSjFXYmSPAcWLLxZVLvNEJdZY5DWOJvBYIb ICAgICAgICAgICAgICAgICAgICAgICAgICAgICAgICAgICAgICAgICAgICAgICAgICAgICAgICAgICAg HVMsTQAgHKMsMJKiHFClVQVwYACpOQQrKKNnNDKoZKIqAX4VLWDaXSTaIFBcQIQbSRNuNNUxFBTnJCQl ICAgICAgICAgICAgICAgICAgICAgICAgICAgICAgIC MdDYDcEJVfJDEdHIUuSICzTBEcCWSzUODbLFXwXLPeHMUuBAFcHDRxLGIiEQ8JFCOsRQTwBLBcDXSjNO AgICAgICAgICAgICAgICAgICAgICAgICAgICAgICAgICAgICAgICAgICAgICAgICAgICAgICAgICAgIC TkOAJcSIYuKDKkAAHaJSUwJUQqTRRnSQPpGD4XLYRc ICAgICAgICAgICAgICAgICAgICAgICAgICAgICAgICAgICAgICAgICAgICAgICAgICAgICAgICAgICAg NGZbLQTsDKUjSNIhHWWsDTKjOTDiOXQtFMZeCFVeEEJoKURjOK6WTCJqJTLeOQGcRDWsKRDzXHXyGIGa ICAgICAgICAgICAgICAgICAgICAgICAgICAgICAgIC GmYIJlOGMmPNUoLWTlVETzMXWdDIAsSBPxDWCiOIRhLDLlXGLgNLAvPDNxWXBfOU9LVKLoGWDbWWEbEO AgICAgICAgICAgICAgICAgICAgICAgICAgICAgICAgICAgICAgICAgICAgICAgICAgICAgICAgICAgIC HhKBEcIYYgUXAyGMQuFTTjKFItAJGiHKUkPECzBS5C KR93uVNcu1C5OHXgYC7nhvj/Hu3XHHlgnwXayOWdOC2GScLkVJ1boh3NZwMuNI7gce3QCPmEQtIaR9B8 wFXyKCXiIISUReLmZ86wTCgxYm81BBesNLPfGtBdRQm4Go0ZWsUnB4mmVPNdUoE6NTExJjX0AMCnYeU8 TOBkVyRiLHCyTEMePR1XITWjH571tiReMO8UNc2QOc DwKN2zhe3FToxqROPaXzbAUqm4XOhgYU8UeWLnnAHcEKFpEKHUDnEwJ6ktb5TiNfsjEAEFQClyEL7Ka9 VudCAxDQo+Pu9ZHO0rt2SkHKbpPUUdYH8yrq1ADYlSOrStP5SfqAqrPOicXQZcpMFNdAQcqmINyOXbPV RSLRPmbVN5DeN1NqKlKuOeJII8AOUtMT2qOBfzBD7A MPP8KVqxZMPpBJCqA6qVLhOnYPzkRAKdgAlgFT5HGyJqK3EwrhLyoNHlWyBoBFAEOk3+DQplbmRvYmoN KcX9JBUuq1ZxRCy5TS0XQWXlCWxlIA4ANHYaqE2qCGybLS3EOyHxZFHqDGVMZwSuJ30cxIVlNCo6B7Gf YmVkZGVkRmlsZXMgPDwvTmFtZXMgWyBdDQogID4+ID 4+ASsfOD4MEVdyipBhCUKdWa6BPNKqYAOtPB4oIHZrAMDyP8F2nDhzMLRZNjHpW6fvgukmET3tUAOzX9 70iBjkxjTgNTR3UMOdMz4NIBWkODT3XSAfnIOqMoAzMJMMLMqiST6ShRHaUBU0pE6aWPmwBEAnQNJvJ2 jVYpMdfNprCZ98cMetgoKjwGDjMYa+Kn5SXD8es1Bg AFj5iuVbRQdvDLIlVRpzURLuEULlIZRlBMV4YAC6OQFVTzYnKEAlVHKaVXdkELFoEEYaob9DEJPmPXVy AJJ3EBLrVBNdVQElULvpGLEhDOSuXLFwZYFwPPDeXS5TXoUvILFpSMJeWPzfXHJzESIilt4IHCUwYWVa WrOwUkUnMJIqINNcJIplXIKcJPIiScZ7ZDRjQSIhPQ 9LXiYmEUZnYWB0FfvlKOJeINUopn8HHDKnOMBjHVO7NFYkMUGqMLVfCPogSQYzYVQ7UEIjYQSvRVYrAL 2AZxGcRNChAFpxXlpaAPJaZOEbus5XPEEkVSLmPXB0MLKwIMHvDPLcOHojPMIlOVV5SOuyICUcGGUbBF 7AOkXhHIVtFYX9WgHxJPVqROKxef5GZOPtAYKcYAVb AwGyIZEnSAYbQYdoOCYrZCTgXNZpDBJrYTOrLH1JEhGdMXZnASK6CDUfKQPdXJHadq3BUMFeTSCdAGs1 FoLyWXNrLPXlFDdyTQLhJJMjADQtKRDiAWFqIM9BRbGuJVTuSqN5OAkyXPYhBTOqev8NNRKxTTNqXZda LEBlZHCqWGPeJKvhXQUoFFG6KWS7TBBlEDVvHT0VNu TyXQJoZvFnVlSmJJUiLAAbrg3EATBcPQJdVBKfVHKeEBWfNLYqCJfiQUHlWAJ4YzAeNVEsWHBtRG2SHs OkPUQkPlL5SAOzDEBwTCPavx0OBIBfNKViVspmGeMlZHUrSIHkCWdoPNLuSWS3Euu4JNTmDKZqKH9OLs MiWBBdNkz3OBhcOOFlHJXfvg6GGLAfMYIgTDXwSiYb JNTrALFwARzeFCQpNCL9KCw3VJFoPNUcIY8JKsUmUREbHkypSNotJYUhCIImag9DMOHhSWLgZLUmYvPh NUKhDTNzNYhcSMCvLWYcOiu1TNGvOASdML6MQqPpLESjZqD1UvFjVOAlGXClkr7ISYWtGWKmXWC7MXTu WSDkCGCqAYnxUGNgKLDaXMRhDMQqANTbHV2DEeIeWN GuOzV7PQInPRKfOOOeke4XNYDxQNUeFtI7DGSnPKWhUXZrELdkARNbCFMiKws1HRKoUBBkKZ7YKmAlNH ofMSOUGaf5VLgdI9v1BCU3HL9JO5Agz8SgXohrDLRNQVqwHA6zkxRkATAvAp9CI6pQPhnuKGOyZZspXG GtADHdRqYqGwG2MRWtBbK8ZXQ5NuxtYK4vIDA3LWQ1 SFFwA0OiDkBmDjRzAtg2IcKgWAScYiDyFaQ8FaCnEO9WFw5FEzJ1NQO9rWQrJx4MQoPbKzcFKrQuUM9V DQo= ID Date Data Source [id number] 03/22/2021 08:28:35 PM EDT [facility] Name Value Range Interpretation Code Description Data Arabella rce(s) Supporting Document(s) Progress Note [facility] RERYEx6uQsIYFpFu34/IQGfmSOToy3NxVTtsFYx2STfuUEIdC3WnMXA9oI2xPMB6SPsUMoNvBlGfAZU1 lbm PvGjrVXhBuTRVkQywKQbZrZYpgTdwpzOKkHS0HfOB5CGRzZ28uUMZmUZTbC9MrAOB4GFA+Sk0ARNFqoK HsZP9PMcpD5Ogez+J3HA0hDX2PcTEhWE3oISogCjcTv4Mzql1ITBQztlRURQGqEivLoAy861p2EBphSl jypawyET0qM6L+u9/+hXABXVb0dnNE23Sjyf+vv4YR Z8M5+/orVk/z+Hpa/TYPYma0U17xORO/en3fA7yfh/hIw7J35e/rwQmTgWAnkROw/ujobBr/2Hz83oVx BNXHPwd89SAFBZcBJEiHp9t/Kzvvs+qjKZ9uPC8d3YttYJISghuQ4ay5b9NsB7yuJQR3qfRfIoD9VTjf 82FZWtI0deNlBeSd4ZpAGWtp5s233bpIY+fvIRTUuB U1Lc+JpIM+8kaoz8t0ypWcejSbDH8ikxkhCg6j8FRQK0BbF5yHrDfgvrugsN0DJU1uWiUG1Qk2mjehiO ZgcK+o2cukpXl8T7rgousXmUJyHc0k7kVM/C4BNcUaITZwVxAGK7aD6RjxFwGwjr/s/Pp5pmmIaprAy1 8wizIsLnQKf5pl/RLl++UVHueYCbfwPhsMJz1jl7op pWwko9alp8Qs7gdGn4yaxn+c97lulu0G/AZ2XdS5nKRqD+6LYqCnMJv6CZC7XeL5VxAaYmWWzQ1q/ARNAUD [file] ID Date Data Source [id number] 03/22/2021 06:09:00 PM EDT [facility] TSYSORDER [id number] Name Value Range Interpretation Code Description Data Arabella rce(s) Supporting Document(s) URINE COLOR. [facility] URINE APPEARANCE CLEAR [facility] URINE GLUCOSE (UA) NEGATIVE mg/dL NEGATIVE [facility] URINE BILIRUBIN NEGATIVE NEGATIVE [facility] URINE KETONE 5(TRACE) mg/dL NEGATIVE [facility] SPECIFIC GRAVITY,URINE 1.015 1.005-1.030 [facility] URINE BLOOD NEGATIVE NEGATIVE [facility] PH,URINE 7.5 5.0-9.0 [facility] URINE PROTEIN NEGATIVE mg/dL NEGATIVE [facility] UROBILINOGEN NORMAL(0.2-1) mg/dL 0-1 [facility] URINE NITRATE NEGATIVE NEGATIVE [facility] URINE LEUKOCYTE ESTERASE NEGATIVE NEGATIVE [facility] ID Date Data Source [id number] 03/22/2021 05:30:00 PM EDT [facility] Name Value Range Interpretation Code Description Data Arabella rce(s) Supporting Document(s) COVID-19 NEGATIVE [facility] This lab was ordered by [facility] and reported by [facility]. ID Date Data Source [id number] 03/22/2021 06:06:00 PM EDT [facility] TSYSORDER [id number] Name Value Range Interpretation Code Description Data Arabella rce(s) Supporting Document(s) COVID-19 NEGATIVE NEGATIVE [facility] Negative results should be treated as pr [...] are for the indentification of SARS-CoV-2 RNA. BkwVWRI-KiX-2 RNA is generally detectable in respiratorysamples during the actue phase of infection. ID Date Data Source [id number] 03/22/2021 04:58:00 PM EDT [facility] DATE OF EXAMINATION: 03/22/2021 14:46 EDT ABD/PEL [...] Name Value Range Interpretation Code Description Data [facility] rce(s) Supporting Document(s) ID Date Data Source [id number] 03/22/2021 03:33:00 PM EDT [facility] TSYSORDER [id number] Name Value Range Interpretation Code Description Data [facility] rce(s) Supporting Document(s) LACTIC ACID 0.9 mmol/L 0.4-2.0 [facility] ID Date Data Source [id number] 03/22/2021 03:31:00 PM EDT [facility] TSYSORDER [id number] Name Value Range Interpretation Code Description Data [facility] rce(s) Supporting Document(s) GLUCOSE 88 mg/dL 74-106 [facility] BLOOD UREA NITROGEN 11 mg/dL 7-18 [facility] ital CREATININE 0.71 mg/dL 0.6-1.0 [facility] SODIUM 139 mmol/L 136-145 [facility] POTASSIUM 4.2 mmol/L 3.5-5.1 [facility] CHLORIDE 105 mmol/L 98-107 [facility] CO2 23 mmol/L 21-32 [facility] CALCIUM 9.2 mg/dL 8.5-10.1 [facility] ANION GAP 11.0 mmol/L 5-12 [facility] GLOMERULAR FILTRATION RATE >90 mL/min [facility] GFR IS CALCULATED IN mL/min/1.73m2 JUDITH L FUNCTION: >90MILDLY DECREASED: 60-89MILDY TO MODERATELY DECREASED: 45-59 MODERATELY TO SEVERELY DECREASED: 30-44SEVERELY DECREASED: 15-29RENAL FAILURE: <15 AST 20 U/L 15-37 [facility] ALT 20 U/L 12-78 [facility] ALKALINE PHOSPHATASE 70 U/L 46-116 [facility] TOTAL BILIRUBIN 1.0 mg/dL 0.2-1.0 [facility] TOTAL PROTEIN 7.6 g/dl 6.4-8.2 [facility] ALBUMIN 3.4 gm/dL 3.4-5.0 [facility] ID Date Data Source [id number] 03/22/2021 03:31:00 PM EDT [facility] TSYSORDER [id number] Name Value Range Interpretation Code Description Data [facility] Document(s) LIPASE 117 U/L 73-393 [facility] ID Date Data Source [id number] 03/22/2021 03:24:00 PM EDT [facility] TSYSORDER [id number] Name Value Range Interpretation Code Description Data [facility] Supporting Document(s) HCG,SERUM NEGATIVE NEGATIVE [facility] False negative results may occur when th e levels of hCG arebelow the sensitivity level of the test. If isstill suspected, a first morning urine specimen should becollected 48hrs later.This test has a sensitivity of 10mIU/mL in serum ylf75sZK/mL in urine. ID Date Data Source [id number] 03/22/2021 03:10:00 PM EDT [facility] TSYSORDER [id number] Name Value Range Interpretation Code Description Data [facility](s) Supporting Document(s) WHITE BLOOD COUNT 6.3 K/mm3 4.0-10.0 [facility] RED BLOOD COUNT 3.90 M/mm3 4.00-5.50 L [facility] HEMOGLOBIN 10.2 gm/dL 12.0-16.0 L [facility] HEMATOCRIT 31.5 % 36.0-48.8 L [facility] MEAN CELL VOLUME 80.8 fl 80-96 [facility] MEAN CORPUSCULAR HEMOGLOBIN 26.2 pg 27.0-31.0 L [facility] MEAN CORPUSCULAR HGB CONC 32.4 g/dl 32.0-36.0 [facility] RED CELL DISTRIBUTION WIDTH 16.4 % 10.0-14.5 H [facility] PLATELET COUNT 146 K/mm3 172-450 L [facility] MEAN PLATELET VOLUME 12.1 fl 9.0-13.0 [facility]ital GRAN % 60.8 % 50-80.0 [facility] IG% 0.2 % 0.0-0.2 [facility] LYMPH % 30.7 % 25.0-50.0 [facility] MONO % 6.7 % 2.0-10.0 [facility] EOS % 1.0 % 0-5.0 [facility] BASO % 0.6 % 0.0-2.0 [facility] GRAN # 3.8 K/mm3 2.0-8.00 [facility] IG# 0.0 K/mm3 0.0-0.2 [facility] LYMPH # 1.9 K/mm3 1.0-5.0 [facility] MONO # 0.4 K/mm3 0.10-1.20 [facility] EOS # 0.1 K/mm3 0.0-0.5 [facility] BASO # 0.0 K/mm3 0.0-0.2 [facility] ID Date Data Source [id number] 03/19/2021 08:43:00 AM EDT [facility] DATE OF EXAMINATION: 03/19/2021 8:12 EDT [...] Data Source CT ABD/PEL NO CONTRAST - [id number] 03/19/2021 12:00:00 AM EDT eC W1 ([facility]) Name Value Range Interpretation Code Description Data Arabella rce(s) Supporting Document(s) CT ABD/PEL NO CONTRAST - [id number] eCW1 ([facility]) ID Date Data Source [id number] 03/10/2021 05:49:00 PM EDT [facility] ([facility] Name Value Range Interpretation Code Description Data Arabella rce(s) Supporting Document(s) Ferritin [Mass/volume] in Serum or Plasma 7 [facility] ([facility]) ID Date Data Source [id number] 03/10/2021 05:49:00 PM EDT [facility] ([facility] Name Value Range Interpretation Code Description Data Arabella rce(s) Supporting Document(s) Iron 38 [facility] Iron binding capacity [Mass/volume] in Serum or Plasma 429 [facility] ([facility]) Tibc % Saturation 9 [facility] ID Date Data Source [id number] 03/10/2021 05:49:00 PM EDT [facility] ([facility] Name Value Range Interpretation Code Description Data Arabella rce(s) Supporting Document(s) CPK-MB 1.3 [facility] Thyroid Stimulating Hormone 27.184 0.360-3.740 [facility] ([facility]) Free T4 0.4 [facility] ID Date Data Source [id number] 03/10/2021 05:49:00 PM EDT [facility] ([facility] Name Value Range Interpretation Code Description Data Arabella rce(s) Supporting Document(s) White Blood Count 6.9 [facility] Red Blood Count 4.05 [facility] Hematocrit 33.2 [facility] ([facility]) Hemoglobin 10.4 [facility] ([facility]) Platelets 360 [facility] ID Date Data Source [id number] 03/10/2021 05:49:00 PM EDT [facility] ([facility] Name Value Range Interpretation Code Description Data Arabella rce(s) Supporting Document(s) Troponin Laboratory test result 0-60.4 [facility] ([facility]) ID Date Data Source [id number] 03/10/2021 05:49:00 PM EDT [facility] ([facility]) Name Value Range Interpretation Code Description Data Arabella rce(s) Supporting Document(s) Alanine aminotransferase [Enzymatic activity/volume] in Serum or Pl asma 20 [facility] ([facility]) Albumin [Mass/volume] in Serum or Plasma 3.5 [facility] ([facility]) Calcium [Mass/volume] in Serum or Plasma 8.7 [facility] ([facility]) Carbon dioxide, total [Moles/volume] in Serum or Plasma 27 [facility] ([facility]) Chloride [Moles/volume] in Serum or Plasma 104 [facility] ([facility]) Potassium [Moles/volume] in Serum or Plasma 4.2 [facility] ([facility]) Protein [Mass/volume] in Serum or Plasma 7.8 [facility] ([facility]) Alkaline phosphatase [Enzymatic activity/volume] in Serum or Plasma 8 0 [facility] ([facility]) Sodium 138 [facility] Aspartate aminotransferase [Enzymatic activity/volume] in Serum or Plasma 15 [facility] ([facility]) Urea nitrogen [Mass/volume] in Serum or Plasma 11 [facility] ([facility]) Creatinine For GFR 0.85 [facility] ([facility]) Glucose 89 [facility] ([facility]) ID Date Data Source [id number] 03/10/2021 04:36:00 PM EDT [facility] [...] rce(s) Supporting Document(s) ID Date Data Source [id number] 03/10/2021 04:50:00 PM EDT [facility] Name Value Range Interpretation Code Description Data Arabella rce(s) Supporting Document(s) FERRITIN 7 ng/mL 8-252 L [facility] ID Date Data Source [id number] 03/10/2021 04:50:00 PM EDT [facility] Name Value Range Interpretation Code Description Data Arabella rce(s) Supporting Document(s) IRON 38 ug/dL 50-170 L [facility] TIBC 429 ug/dL 250-450 [facility] % SATURATION 9 % 20-50 L [facility] ID Date Data Source [id number] 03/10/2021 04:50:00 PM EDT [facility] Name Value Range Interpretation Code Description Data Arabella rce(s) Supporting Document(s) TROPONIN-HIGH SENSITIVITY < 4.0 ng/L 0-60.4 [facility] ID Date Data Source [id number] 03/10/2021 04:50:00 PM EDT [facility] Name Value Range Interpretation Code Description Data Arabella rce(s) Supporting Document(s) CKMB 1.3 ng/ml 0.0-3.6 [facility] ID Date Data Source [id number] 03/10/2021 04:50:00 PM EDT [facility] Name Value Range Interpretation Code Description Data Arabella rce(s) Supporting Document(s) GLUCOSE 89 mg/dL 74-106 [facility] BLOOD UREA NITROGEN 11 mg/dL 7-18 [facility] ital CREATININE 0.85 mg/dL 0.6-1.0 [facility] SODIUM 138 mmol/L 136-145 [facility] POTASSIUM 4.2 mmol/L 3.5-5.1 [facility] CHLORIDE 104 mmol/L 98-107 [facility] CO2 27 mmol/L 21-32 [facility] CALCIUM 8.7 mg/dL 8.5-10.1 [facility] ANION GAP 7.0 mmol/L 5-12 [facility] GLOMERULAR FILTRATION RATE 75 mL/min [facility] GFR IS CALCULATED IN mL/min/1.73m2 JUDITH L FUNCTION: >90MILDLY DECREASED: 60-89MILDY TO MODERATELY DECREASED: 45-59 MODERATELY TO SEVERELY DECREASED: 30-44SEVERELY DECREASED: 15-29RENAL FAILURE: <15 AST 15 U/L 15-37 [facility] ALT 20 U/L 12-78 [facility] ALKALINE PHOSPHATASE 80 U/L 46-116 [facility] TOTAL BILIRUBIN 0.5 mg/dL 0.2-1.0 [facility] TOTAL PROTEIN 7.8 g/dl 6.4-8.2 [facility] ALBUMIN 3.5 gm/dL 3.4-5.0 [facility] ID Date Data Source [id number] 03/10/2021 04:50:00 PM T [facility] Name Value Range Interpretation Code Description Data Arabella rce(s) Supporting Document(s) FREE T4 0.4 ng/dL 0.76-1.46 L [facility] ID Date Data Source [id number] 03/10/2021 04:50:[address] [facility] Name Value Range Interpretation Code Description Data Arabella rce(s) Supporting Document(s) TSH 27.184 uIU/mL 0.360-3.740 H [facility] ID Date Data Source [id number] 03/10/2021 04:22:[address] [facility] Name Value Range Interpretation Code Description Data Arabella rce(s) Supporting Document(s) WHITE BLOOD COUNT 6.9 K/mm3 4.0-10.0 [facility] RED BLOOD COUNT 4.05 M/mm3 4.00-5.50 [facility] HEMOGLOBIN 10.4 gm/dL 12.0-16.0 L [facility] HEMATOCRIT 33.2 % 36.0-48.8 L [facility] MEAN CELL VOLUME 82.0 fl 80-96 [facility] MEAN CORPUSCULAR HEMOGLOBIN 25.7 pg 27.0-31.0 L [facility] MEAN CORPUSCULAR HGB CONC 31.3 g/dl 32.0-36.0 L [facility] RED CELL DISTRIBUTION WIDTH 16.2 % 10.0-14.5 H [facility] PLATELET COUNT 360 K/mm3 172-450 [facility] MEAN PLATELET VOLUME 10.3 fl 9.0-13.0 [facility]ital GRAN % 55.3 % 50-80.0 [facility] IG% 0.1 % 0.0-0.2 [facility] LYMPH % 34.2 % 25.0-50.0 [facility] MONO % 7.6 % 2.0-10.0 [facility] EOS % 2.2 % 0-5.0 [facility] BASO % 0.6 % 0.0-2.0 [facility] GRAN # 3.8 K/mm3 2.0-8.00 [facility] IG# 0.0 K/mm3 0.0-0.2 [facility] LYMPH # 2.4 K/mm3 1.0-5.0 [facility] MONO # 0.5 K/mm3 0.10-1.20 [facility] EOS # 0.2 K/mm3 0.0-0.5 [facility] BASO # 0.0 K/mm3 0.0-0.2 [facility] ID Date Data Source [id number] 03/10/2021 04:59:00 PM EDT [facility] FAX [phone] Name Value Range Interpretation Code Description Data Arabella rce(s) Supporting Document(s) LITHIUM < 0.20 mmol/L 0.6-1.20 [facility] ID Date Data Source FERRITIN 03/10/2021 12:00:00 AM EDT eCW1 ([facility]) Name Value Range Interpretation Code Description Data Arabella rce(s) Supporting Document(s) 7 8-252 FERRITIN eCW1 ([facility]) ID Date Data Source IRON PROFILE 03/10/2021 12:00:00 AM EDT eCW1 ([facility]) Name Value Range Interpretation Code Description Data Arabella rce(s) Supporting Document(s) 429 250-450 TIBC eCW1 ([facility]) 38 50-170 IRON eCW1 ([facility]) 9 20-50 % SATURATION eCW1 ([facility]) ID Date Data Source CBC [id number]/DIFF 03/10/2021 12:00:00 AM EDT eCW1 ([facility]) Name Value Range Interpretation Code Description Data Arabella rce(s) Supporting Document(s) 10.4 12.0-16.0 HEMOGLOBIN eCW1 ([facility]) 4.05 4.00-5.50 RED BLOOD COUNT eCW1 ([facility]) 6.9 4.0-10.0 WHITE BLOOD COUNT eCW1 ([facility]) 25.7 27.0-31.0 MEAN CORPUSCULAR HEMOGLOB IN eCW1 ([facility]) 82.0 80-96 MEAN CELL VOLUME eCW1 ([facility]) 33.2 36.0-48.8 HEMATOCRIT eCW1 ([facility]) 31.3 32.0-36.0 MEAN CORPUSCULAR HGB CONC eCW1 ([facility]) 16.2 10.0-14.5 RED CELL DISTRIBUTION WID TH eCW1 ([facility]) 360 172-450 PLATELET COUNT eCW1 ([facility]) 34.2 25.0-50.0 LYMPH % eCW1 ([facility]) 7.6 2.0-10.0 MONO % eCW1 ([facility]) 10.3 9.0-13.0 MEAN PLATELET VOLUME eCW1 ([facility]) 55.3 50-80.0 GRAN % eCW1 ([facility]) 0.6 0.0-2.0 BASO % eCW1 ([facility]) 3.8 2.0-8.00 GRAN # eCW1 ([facility]) 2.2 0-5.0 EOS % eCW1 ([facility]) 0.2 0.0-0.5 EOS # eCW1 ([facility]) 2.4 1.0-5.0 LYMPH # eCW1 ([facility]) 0.5 0.10-1.20 MONO # eCW1 ([facility]) 0.0 0.0-0.2 BASO # eCW1 ([facility]) ID Date Data Source CHEST 2 VIEWS 03/10/2021 12:00:00 AM EDT eCW1 ([facility]) Name Value Range Interpretation Code Description Data Arabella rce(s) Supporting Document(s) CHEST 2 VIEWS eCW1 ([facility]) ID Date Data Source FREE T4 03/10/2021 12:00:00 AM EDT eCW1 ([facility]) Name Value Range Interpretation Code Description Data Arabella rce(s) Supporting Document(s) 0.4 0.76-1.46 FREE T4 eCW1 ([facility]) ID Date Data Source TSH 03/10/2021 12:00:00 AM EDT eCW1 ([facility]) Name Value Range Interpretation Code Description Data Arabella rce(s) Supporting Document(s) 27.184 0.360-3.740 TSH eCW1 ([facility]) ID Date Data Source [id number] 03/10/2021 12:00:00 AM EDT eCW1 ([facility]) Name Value Range Interpretation Code Description Data Arabella rce(s) Supporting Document(s) 1.3 0.0-3.6 MB eCW1 ([facility]) ID Date Data Source [id number] 01/30/2021 08:06:00 AM EDT [facility] Name Value Range Interpretation Code Description Data Arabella rce(s) Supporting Document(s) Folate (Folic Acid), Serum 8.6 ng/mL >3.0 [facility] A serum folate concentration of less simi n 3.1 ng/mL isconsidered to represent clinical deficiency. ID Date Data Source [id number] 01/30/2021 08:06:00 AM EDT [facility] Name Value Range Interpretation Code Description Data Arabella rce(s) Supporting Document(s) Vitamin B12 351 pg/mL [phone] [facility] ID Date Data Source [id number] 01/30/2021 08:06:00 AM EDT [facility] Name Value Range Interpretation Code Description Data Arabella rce(s) Supporting Document(s) FOLATE (FOLIC ACID), SERUM 8.6 ng/mL >3.0 [facility] A serum folate concentration of less simi n 3.1 ng/mL isconsidered to represent clinical deficiency. ID Date Data Source [id number] 01/30/2021 08:06:00 AM EDT [facility] Name Value Range Interpretation Code Description Data Arabella rce(s) Supporting Document(s) VITAMIN B12 351 pg/mL [phone] [facility] Performed at: RN - [facility] [address] [id number] Director: Sharmaine Siddiqui MD, Phone: [phone] ID Date Data Source [id number] 01/29/2021 03:33:00 PM EDT [facility] Name Value Range Interpretation Code Description Data Arabella rce(s) Supporting Document(s) IRON 31 ug/dL 50-170 L [facility] TIBC 462 ug/dL 250-450 H [facility] % SATURATION 7 % 20-50 L [facility] ID Date Data Source [id number] 01/15/2021 01:59:00 PM EDT [facility] DATE OF [...] rce(s) Supporting Document(s) ID Date Data Source [id number] 01/15/2021 12:37:00 PM EDT [facility] DATE OF [facility]AMINATION: 01/15/2021 11:42 EDT [...] rce(s) Supporting Document(s) ID Date Data Source [id number] 01/15/2021 11:52:00 AM EDT [facility] Name Value Range Interpretation Code Description Data Arabella rce(s) Supporting Document(s) WHITE BLOOD COUNT 6.3 K/mm3 4.0-10.0 [facility] RED BLOOD COUNT 3.71 M/mm3 4.00-5.50 L [facility] HEMOGLOBIN 9.7 gm/dL 12.0-16.0 [facility] HEMATOCRIT 30.5 % 36.0-48.8 L [facility] MEAN CELL VOLUME 82.2 fl 80-96 [facility] MEAN CORPUSCULAR HEMOGLOBIN 26.1 pg 27.0-31.0 L [facility] MEAN CORPUSCULAR HGB CONC 31.8 g/dl 32.0-36.0 L [facility] RED CELL DISTRIBUTION WIDTH 13.7 % 10.0-14.5 [facility] PLATELET COUNT 255 K/mm3 172-450 [facility] MEAN PLATELET VOLUME 10.9 fl 9.0-13.0 [facility] pital GRAN % 53.2 % 50-80.0 [facility] IG% 0.0 % 0.0-0.2 [facility] LYMPH % 35.0 % 25.0-50.0 [facility] MONO % 9.1 % 2.0-10.0 [facility] EOS % 2.1 % 0-5.0 [facility] BASO % 0.6 % 0.0-2.0 [facility] GRAN # 3.4 K/mm3 2.0-8.00 [facility] IG# 0.0 K/mm3 0.0-0.2 [facility] LYMPH # 2.2 K/mm3 1.0-5.0 [facility] MONO # 0.6 K/mm3 0.10-1.20 [facility] EOS # 0.1 K/mm3 0.0-0.5 [facility] BASO # 0.0 K/mm3 0.0-0.2 [facility] ID Date Data Source [id number] 01/15/2021 12:35:00 PM T [facility] l Name Value Range Interpretation Code Description Data Arabella rce(s) Supporting Document(s) ERYTHROCYTE SEDIMENTATION RATE 70 mm/hr 0-20 H [facility] ID Date Data Source [id number] 01/15/2021 12:10:00 PM [facility] l Name Value Range Interpretation Code Description Data Arabella rce(s) Supporting Document(s) FREE T4 0.5 ng/dL 0.76-1.46 L [facility] ID Date Data Source [id number] 01/15/2021 12:10:00 PM [facility] l Name Value Range Interpretation Code Description Data Arabella rce(s) Supporting Document(s) TSH 19.669 uIU/mL 0.360-3.740 H [facility] ID Date Data Source [id number] 01/15/2021 11:59:00 AM EDT [facility] l Name Value Range Interpretation Code Description Data Arabella rce(s) Supporting Document(s) GLUCOSE 72 mg/dL 74-106 [facility] BLOOD UREA NITROGEN 14 mg/dL 7-18 [facility] ital CREATININE 0.83 mg/dL 0.6-1.0 [facility] SODIUM 138 mmol/L 136-145 [facility] POTASSIUM 4.5 mmol/L 3.5-5.1 [facility] CHLORIDE 104 mmol/L 98-107 [facility] CO2 27 mmol/L 21-32 [facility] CALCIUM 8.8 mg/dL 8.5-10.1 [facility] ANION GAP 7.0 mmol/L 5-12 [facility] GLOMERULAR FILTRATION RATE 77 mL/min [facility] GFR IS CALCULATED IN mL/min/1.73m2 JUDITH L FUNCTION: >90MILDLY DECREASED: 60-89MILDY TO MODERATELY DECREASED: 45-59 MODERATELY TO SEVERELY DECREASED: 30-44SEVERELY DECREASED: 15-29RENAL FAILURE: <15 AST 16 U/L 15-37 [facility] ALT 23 U/L 12-78 [facility] ALKALINE PHOSPHATASE 76 U/L 46-116 [facility] pital TOTAL BILIRUBIN 0.5 mg/dL 0.2-1.0 [facility] TOTAL PROTEIN 6.9 g/dl 6.4-8.2 [facility] ALBUMIN 3.5 gm/dL 3.4-5.0 [facility] ID Date Data Source Urinalysis, Routine 01/15/2021 12:00:00 AM EDT eCW1 ([facility]) Name Value Range Interpretation Code Description Data Arabella rce(s) Supporting Document(s) Color of Urine Ellen Urine-Color eCW1 ([facility]) Microscopic Examination eCW1 ( [facility]) Specific gravity of Urine 1.025 Specific G ravity eCW1 ([facility]) Appearance of Urine Clear Appearance eCW1 ([facility]) pH of Urine by Test strip 5 pH eCW1 ([facility]) Glucose [Presence] in Urine NEG Glucose eCW1 ([facility]) Protein [Presence] in Urine by Test strip NEG Protein eCW1 ([facility]) Bilirubin.total [Presence] in Urine by Test strip NEG Bilirubin eCW1 ([facility]) Hemoglobin [Presence] in Urine by Test strip NEG Occult Blood eCW1 ([facility]) Nitrite [Presence] in Urine by Test strip NEG Nitrite, Urine eCW1 ([facility]) Urobilinogen [Mass/volume] in Urine by Test strip NEG Urobilinogen,Semi-Qn eCW1 ([facility]) Ketones [Presence] in Urine by Test strip NEG Ketones eCW1 ([facility]) Urinalysis Gross Exam eCW1 ([facility]) Leukocyte esterase [Presence] in Urine by Test strip NEG WBC Esterase eCW1 ([facility]) Procedure Social History Code Duration Value Status Description Data Source(s ) Smoking 05/05/2021 12:00:00 AM EDT Current Smoker completed Curre nt Smoker eCW1 ([facility]) Smoking 05/05/2021 12:00:00 AM EDT Current Smoker completed Curre nt Smoker eCW1 ([facility]) Smoking 05/05/2021 12:00:00 AM EDT Current Smoker completed Curre nt Smoker eCW1 ([facility]) Smoking 05/05/2021 12:00:00 AM EDT Current Smoker completed Curre nt Smoker eCW1 ([facility]) Smoking 05/05/2021 12:00:00 AM EDT Current Smoker completed Curre nt Smoker eCW1 ([facility]) Alcohol intake 05/02/2021 12:00:00 AM EDT Ex-drinker (finding) comp leted Ex- drinker (finding) [facility] Tobacco use and exposure 05/02/2021 12:00:00 AM EDT Never used co mpleted Never used [facility] Smoking 05/02/2021 12:00:00 AM EDT Former smoker completed Former smoker [facility] Alcohol intake 04/25/2021 12:00:00 AM EDT Ex-drinker (finding) comp leted Ex- drinker (finding) [facility] Smoking 03/10/2021 12:00:00 AM EDT Current Smoker completed Curre nt Smoker eCW1 ([facility]) Smoking 03/10/2021 12:00:00 AM EDT Current Smoker completed Curre nt Smoker eCW1 ([facility]) Smoking 03/10/2021 12:00:00 AM EDT Current Smoker completed Curre nt Smoker eCW1 ([facility]) Smoking 03/10/2021 12:00:00 AM EDT Current Smoker completed Curre nt Smoker eCW1 ([facility]) Smoking 03/10/2021 12:00:00 AM EDT Current Smoker completed Curre nt Smoker eCW1 ([facility]) Smoking 03/10/2021 12:00:00 AM EDT Current Smoker completed Curre nt Smoker eCW1 ([facility]) Smoking 02/21/2021 12:00:00 AM EDT Current Smoker completed Curre nt Smoker eCW1 ([facility]) Smoking 02/13/2021 12:00:00 AM EDT Current Smoker completed Curre nt Smoker eCW1 ([facility]) Smoking 01/31/2021 12:00:00 AM EDT Current Smoker completed Curre nt Smoker eCW1 ([facility]) Smoking 01/29/2021 12:00:00 AM EDT Current Smoker completed Curre nt Smoker eCW1 ([facility]) Smoking 01/29/2021 12:00:00 AM EDT Current Smoker completed Curre nt Smoker eCW1 ([facility]) Smoking 01/29/2021 12:00:00 AM EDT Current Smoker completed Curre nt Smoker eCW1 ([facility]) Smoking 01/15/2021 12:00:00 AM EDT Current Smoker completed Curre nt Smoker eCW1 ([facility]) Smoking 01/15/2021 12:00:00 AM EDT Current Smoker completed Curre nt Smoker eCW1 ([facility]) Smoking 01/15/2021 12:00:00 AM EDT Current Smoker completed Curre nt Smoker eCW1 ([facility]) Smoking 01/15/2021 12:00:00 AM EDT Current Smoker completed Curre nt Smoker eCW1 ([facility]) Smoking 01/15/2021 12:00:00 AM EDT Current Smoker completed Curre nt Smoker eCW1 ([facility]) 03/20/2021 12:00:00 AM EDT Smoker completed Smoker [facility] 03/20/2021 12:00:00 AM EDT Current smoker completed Curre nt smoker [facility] Vital Signs ID Date Data Source UNK Name Value Range Interpretation Code Description Data Source(s) Body temperature 36.22 Jayde 36.22 Jayde [facility] Respiratory rate 18 /min 18 /min [facility] Oxygen saturation in Arterial blood by Pulse oximetry 99 % 99 % [facility] Systolic blood pressure 107 mm[Hg] 107 mm[Hg] [facility] Diastolic blood pressure 63 mm[Hg] 63 mm[Hg] [facility] Heart rate 50 /min 50 /min [facility] Body height 174 cm 174 cm [facility] Body weight 77.111 kg 77.111 kg [facility] Body mass index (BMI) [Ratio] 25.47 kg/m2 25.47 kg/m2 [facility] Systolic blood pressure 104 mm[Hg] 104 mm[Hg] [facility] Diastolic blood pressure 70 mm[Hg] 70 mm[Hg] [facility] Heart rate 46 /min 46 /min [facility] Body temperature 36.17 Jayde 36.17 Jayde [facility] Respiratory rate 16 /min 16 /min [facility] Oxygen saturation in Arterial blood by Pulse oximetry 99 % 99 % [facility] Body height 172 cm 172 cm [facility] Body weight 80.287 kg 80.287 kg [facility] Body mass index (BMI) [Ratio] 27.14 kg/m2 27.14 kg/m2 [facility] Systolic blood pressure 92 mm[Hg] 92 mm[Hg] [facility] Diastolic blood pressure 59 mm[Hg] 59 mm[Hg] [facility] Heart rate 64 /min 64 /min [facility] Respiratory rate 16 /min 16 /min [facility] Oxygen saturation in Arterial blood by Pulse oximetry 97 % 97 % [facility] Body temperature 36.78 Jayde 36.78 Jayde [facility] Body height 172 cm 172 cm [facility] Body weight 82 kg 82 kg [facility] Body mass index (BMI) [Ratio] 27.72 kg/m2 27.72 kg/m2 [facility] Diastolic blood pressure 59 mm[Hg] 59 mm[Hg] DAVID ([facility]) Body height 69 [in_i] 69 [in_i] DAVID ([facility]) Body mass index (BMI) [Ratio] 26.5 kg/m2 26.5 k g/m2 DAVID ([facility]) Systolic blood pressure 97 mm[Hg] 97 mm[Hg] A THENA ([facility]) Body weight 179.2 [lb_av] 179.2 [lb_av] DAVID ([facility]) Diastolic blood pressure 59 mm[Hg] 59 mm[Hg] DAVID ([facility]) Body height 69 [in_i] 69 [in_i] DAVID ([facility]) Body mass index (BMI) [Ratio] 26.5 kg/m2 26.5 k g/m2 DAVID ([facility]) Systolic blood pressure 97 mm[Hg] 97 mm[Hg] A THENA ([facility]) Body weight 179.2 [lb_av] 179.2 [lb_av] DAVID ([facility]) Body height 68 [in_i] 68 [in_i] eCW1 ([facility]) Body weight 179.6 [lb_av] 179.6 [lb_av] eCW1 ([facility]) Body mass index (BMI) [Ratio] 27.31 kg/m2 27.31 kg/m2 eCW1 ([facility]) Body temperature 98.8 [degF] 98.8 [degF] eCW1 ( [facility]) Heart rate 86 /min 86 /min eCW1 ([facility]) Respiratory rate 18 /min 18 /min eCW1 ([facility]) Oxygen saturation in Arterial blood by Pulse oximetry 100 % 100 % eCW1 ([facility]) Body height 68 [in_i] 68 [in_i] eCW1 ([facility]) Body weight 180.6 [lb_av] 180.6 [lb_av] eCW1 ([facility]) Body mass index (BMI) [Ratio] 27.46 kg/m2 27.46 kg/m2 eCW1 ([facility]) Body temperature 98.2 [degF] 98.2 [degF] eCW1 ( [facility]) Heart rate 92 /min 92 /min eCW1 ([facility]) Respiratory rate 18 /min 18 /min eCW1 ([facility]) Oxygen saturation in Arterial blood by Pulse oximetry 100 % 100 % eCW1 ([facility]) Body height 68 [in_i] 68 [in_i] eCW1 ([facility]) Body weight 182.4 [lb_av] 182.4 [lb_av] eCW1 ([facility]) Body mass index (BMI) [Ratio] 27.73 kg/m2 27.73 kg/m2 eCW1 ([facility]) Body temperature 98.4 [degF] 98.4 [degF] eCW1 ( [facility]) Heart rate 78 /min 78 /min eCW1 ([facility]) Respiratory rate 18 /min 18 /min eCW1 ([facility]) Oxygen saturation in Arterial blood by Pulse oximetry 98 % 98 % eCW1 ([facility]) ID Date Data Source [id number] 03/22/2021 08:28:35 PM EDT [facility] Name Value Range Interpretation Code Description Data Source(s) TRANSFER FROM [facility] Patient Treatment Plan of Care Planned Activity Planned Date Details Description Data Source (s) lamotrigine 25 MG Oral Tablet 05/21/2021 12:00:00 AM EDT eCW1 ([facility]) lamotrigine 25 MG Oral Tablet 05/21/2021 12:00:00 AM EDT eCW1 ([facility]) Acetaminophen 325 MG / Hydrocodone Bitartrate 7.5 MG O ral Tablet 05/04/2021 12:00:00 AM EDT [facility] Misoprostol 0.2 MG Oral Tablet 05/04/2021 12:00:00 AM EDT [facility] Methylcellulose 500 MG Oral Tablet 03/27/2021 12:00:00 AM EDT [facility] Lactobacillus rhamnosus GG [id number] UNT Oral Capsul e 03/27/2021 12:00:00 AM EDT [facility] brexpiprazole 2 MG Oral Tablet [Rexulti] 03/19/2021 12:00:00 AM EDT eCW1 ([facility]) brexpiprazole 2 MG Oral Tablet [Rexulti] 03/19/2021 12:00:00 AM EDT eCW1 ([facility]) brexpiprazole 2 MG Oral Tablet [Rexulti] 03/19/2021 12:00:00 AM EDT eCW1 ([facility]) brexpiprazole 2 MG Oral Tablet [Rexulti] 03/19/2021 12:00:00 AM EDT eCW1 ([facility]) brexpiprazole 2 MG Oral Tablet [Rexulti] 03/19/2021 12:00:00 AM EDT eCW1 ([facility]) brexpiprazole 1 MG Oral Tablet [Rexulti] 03/19/2021 12:00:00 AM EDT eCW1 ([facility]) brexpiprazole 1 MG Oral Tablet [Rexulti] 03/19/2021 12:00:00 AM EDT eCW1 ([facility]) brexpiprazole 1 MG Oral Tablet [Rexulti] 03/19/2021 12:00:00 AM EDT eCW1 ([facility]) brexpiprazole 1 MG Oral Tablet [Rexulti] 03/19/2021 12:00:00 AM EDT eCW1 ([facility]) Prazosin 1 MG Oral Capsule 02/13/2021 12:00:00 AM EDT eCW1 ([facility]) Prazosin 1 MG Oral Capsule 02/13/2021 12:00:00 AM EDT eCW1 ([facility]) [place] Carbonate 300 MG Oral Capsule 02/13/2021 12:00:00 AM EDT eCW1 ([facility]) Prazosin 1 MG Oral Capsule 02/13/2021 12:00:00 AM EDT eCW1 ([facility]) Levothyroxine Sodium 0.025 MG Oral Tablet 01/29/2021 12:00:00 AM ED T eCW1 ([facility]) 0.3 ML Epinephrine 1 MG/ML Auto-Injector [Epipen] 01/29/2021 12: 00:00 AM EDT eCW1 ([facility]) Levothyroxine Sodium 0.025 MG Oral Tablet 01/29/2021 12:00:00 AM ED T eCW1 ([facility]) 0.3 ML Epinephrine 1 MG/ML Auto-Injector [Epipen] 01/29/2021 12: 00:00 AM EDT eCW1 ([facility]) Levothyroxine Sodium 0.025 MG Oral Tablet 01/29/2021 12:00:00 AM ED T eCW1 ([facility]) 0.3 ML Epinephrine 1 MG/ML Auto-Injector [Epipen] 01/29/2021 12: 00:00 AM EDT eCW1 ([facility]) Misoprostol 0.2 MG Oral Tablet 08/04/2019 12:00:00 AM [facility] ferrous sulfate 325 MG Oral Tablet [facility] gabapentin 600 MG Oral Tablet [facility] quetiapine 25 MG Oral Tablet [Seroquel] DAVID ([facility]) Mirtazapine 15 MG Oral Tablet [Remeron] DAVID ([facility]) OneTouch Delica Lancets ATHE NA ([facility]) One Touch II Test strips ATH TENZIN ([facility]) [place] Carbonate 300 MG Oral Capsule DAVID ([facility]) Hair, Skin and Nails Advanced DAVID ([facility]) Biotin 10 MG Oral Tablet ATH TENZIN ([facility]) quetiapine 25 MG Oral Tablet [Seroquel] DAVID ([facility]) Mirtazapine 15 MG Oral Tablet [Remeron] DAVID ([facility]) OneTouch Delica Lancets ATHE NA ([facility]) One Touch II Test strips ATH TENZIN ([facility]) [place] Carbonate 300 MG Oral Capsule DAVID ([facility]) Hair, Skin and Nails Advanced DAVID ([facility]) Biotin 10 MG Oral Tablet ATH TENZIN ([facility])
[2021-06-20] MEDS ORDERED: ONDANSETRON 4MG/2ML VIAL IV ONE (19:45)
[2021-06-20 20:21] LABS: BASO # 0.1 10^3/uL (0.0-0.2); BASO % 0.4 % (0.0-1.0); EOS # 0.2 10^3/uL (0.0-0.5); EOS % 1.8 % (0.0-3.0); HEMATOCRIT 35.3 % (36.0-47.0); HEMOGLOBIN 10.8 g/dl (12.0-15.5); LYMPH # 3.2 10^3/uL (1.5-5.0); LYMPH % 24.3 % (24.0-44.0); MEAN CORPUSCULAR HEMOGLOBIN 27.3 pg (27.0-33.0); MEAN CORPUSCULAR HGB CONC 30.6 g/dl (32.0-36.5); MEAN CORPUSCULAR VOLUME 89.1 fl (80.0-96.0); MONO % 7.2 % (2.0-8.0); NEUTROPHILS # 8.7 10^3/uL (1.5-8.5); NEUTROPHILS % 65.3 % (36.0-66.0); PLATELET COUNT, AUTOMATED 308 10^3/uL (150-450); RED BLOOD COUNT 3.96 10^6/uL (4.00-5.40); WHITE BLOOD COUNT 13.3 10^3/uL (4.0-10.0)
[2021-06-20] MEDS: MORPHINE 4 MG/ML 1ML VIAL/SYRINGE (J2270) IV PRN ×3 (20:36→22:19)
[2021-06-20] MEDS ORDERED: ISOVUE-370 76% 100ML VIAL As Ordered ONE (20:50)
[2021-06-20 20:53] LABS: ALBUMIN 3.1 GM/DL (3.2-5.2); ALT/SGPT 38 U/L (12-78); BILIRUBIN,DIRECT < 0.1 MG/DL (0.0-0.2); BILIRUBIN,TOTAL 0.2 MG/DL (0.2-1.0); LIPASE 184 U/L (73-393); TOTAL PROTEIN 7.7 GM/DL (6.4-8.2)
--- NOTE | 2021-06-20 21:14 | REPVR ---
PROCEDURE INFORMATION: Exam: CT Abdomen And Pelvis With Contrast Exam date and time: 06/20/2021 8:52 PM Age: 40 years old Clinical indication: Abdominal pain; Generalized; Prior surgery; Surgery type: Bypass reversal, peg tube insertion; Additional info: Recent gastric bypass reversal, peg tube, luq pain TECHNIQUE: Imaging protocol: Computed tomography of the abdomen and pelvis with contrast. Radiation optimization: All CT scans at this facility use at least one of these dose optimization techniques: automated exposure control; mA and/or kV adjustment per patient size (includes targeted exams where dose is matched to clinical indication); or iterative reconstruction. Contrast material: ISOVUE 370; Contrast volume: 100 ml; Contrast route: INTRAVENOUS (IV); COMPARISON: CT ABD/PEL W/IV ORAL CONTRAS 05/15/2021 7:59 PM FINDINGS: Liver: There is a diffuse decrease in hepatic parenchymal density, consistent with steatosis. Gallbladder and bile ducts: There has been a cholecystectomy. Pancreas: Normal. No ductal dilation. Spleen: Normal. No splenomegaly. Adrenal glands: Normal. No mass. Kidneys and ureters: Normal. No hydronephrosis. Stomach and bowel: Postsurgical changes demonstrated in the stomach status post recent gastric bypass reversal. Perigastric inflammatory changes consistent with recent surgery. Appendix: No evidence of appendicitis. Intraperitoneal space: Unremarkable. No free air. No significant fluid collection. Vasculature: Unremarkable. No abdominal aortic aneurysm. Lymph nodes: Unremarkable. No enlarged lymph nodes. Urinary bladder: Unremarkable as visualized. Reproductive: There has been a hysterectomy. Complex thick-walled cystic process demonstrated in the right adnexal region measures 5.9 x 6.6 x 4.5 cm increased in size in complexity comparison to the prior study of 05/15/2021. Finding may represent an enlarged right ovary containing functional cysts. Correlation with nonemergent pelvic ultrasound suggested. Bones/joints: Status post posterior interbody fusion of L3-S1 using transpedicular screws and metallic rods. Status post L3, L4, and L5 laminectomies. Soft tissues: Subcutaneous emphysema demonstrated on the anterior and right lateral abdominal wall consistent with recent surgery. IMPRESSION: 1. There is a diffuse decrease in hepatic parenchymal density, consistent with steatosis. 2. There has been a cholecystectomy. 3. Postsurgical changes demonstrated in the stomach status post recent gastric bypass reversal. Perigastric inflammatory changes consistent with recent surgery. 4. Subcutaneous emphysema demonstrated on the anterior and right lateral abdominal wall consistent with recent surgery. 5. There has been a hysterectomy. 6. Complex thick-walled cystic process demonstrated in the right adnexal region measures 5.9 x 6.6 x 4.5 cm increased in size in complexity comparison to the prior study of 05/15/2021. Finding may represent an enlarged right ovary containing functional cysts. Correlation with nonemergent pelvic ultrasound suggested. Electronically signed by: Ede Morgan On 06/20/2021 21:13:44 PM
--- OUTSIDE RECORDS SUMMARY | 2021-06-20 21:57 | CCD ---
Author Author [facility] Organization [facility] Address Unknown Phone Unavailable Care Team Providers Care Chemical Research Worker Name Role Phone Pam Baires Unavailable Pam [...] Unavailable MonCari alvarez MD Unavailable Unavailable Cari eD Souza MD Unavailable Unavailable Cari De Souza [...] Unavailable Unavailable Pavelock, Kevin Unavailable Unavailable Pavelock, Ekvin Unavailable Unavailable Pavelock, Kevin Unavailable Unavailable Pavelock, [...] PAN, RASHAWN MADIHA PA Unavailable Unavailable PAN, RASAHWN MADIHA PA Unavailable Unavailable PAN, RASHAWN MADIHA [...] A Rashawn FAIR Unavailable Unavailable Essence, A Rashanw FAIR Unavailable Unavailable Essence, A Rashawn FAIR [...] Nell Cortes MD Unavailable Unavailable Essence, Nell Cortse MD Unavailable Unavailable Essence, Nell Cortes MD [...] QAMAR, KRANTHI JUVE PA-C Unavailable Unavailable QAMAR, KRATNHI JUVE PA-C Unavailable Unavailable Martin Sibley MD [...] is protected by Article 27-F of the [facility] Public Health law. If you continue you may have access to information: Regarding HIV / AIDS; Provided by facilities licensed or operated by the [facility] Office of Mental Health; or Provided by the [facility] Office for People With Developmental Disabilities. If such information is present, then the following [facility] mandated warning applies: This information has [...] law may result in a fine or chcf sentence or both. A general authorization for the release of medical or other information is NOT sufficient authorization for further disc losure. Allergies and Adverse Reactions Type Description Substance Reaction Status Data Source(s ) Propensity to adverse reactions NO ALLERGIES ON FILE NO ALLERGIES ON FILE [facility] Propensity to adverse reactions LEVONORGESTREL-ETHINYL ESTRA D LEVONORGESTREL- ETHINYL ESTRAD Unknown [facility] Propensity to adverse reactions BEE VENOM PROTEIN (HONEY BEE) Ho huseyin bee venom Other Unknown [facility] Propensity to adverse reactions RIZATRIPTAN rizatriptan Swelling High [facility] Propensity to adverse reactions AMITRIPTYLINE Amitriptyline Swelling High [facility] Allergy to substance Severe Amitriptyline Hallucinations DAVID ([facility]) Allergy to substance Severe Amitriptyline Hallucinations DAVID ([facility]) Family History Family Member Name Family Member Gender Family Member Status Date o f Status Description Data Source(s) Unknown Female Condition Family Member Diabetes B on [facility] Unknown Female Condition Family Member Cancer B on [facility] Unknown Female Condition Family Member Hypertension Bon [facility] Encounters Encounter Providers Location Date Indications Data Source(s ) INPATIENT Attender: BILL GARNICA MD 5F-OR 06/13/2021 10:36:35 AM EDT [facility] Inpatient Attender: Rashawn Lowry MDAdmitter: Rashawn summers MD 5F-1E 06/12/2021 01:00:00 AM EDT [facility] Patient admitted. Outpatient Attender: GWEN DEVIRUTH 06/04/2021 10:00: 00 AM [facility] [place] Outpatient Attender: Ragini Watts 06/04/2021 09:01:00 AM EDT [facility] Outpatient [facility] 05/27/2021 12:00:00 AM EDT eCW1 ([facility]) Outpatient [facility] 05/27/2021 12:00:00 AM EDT eCW1 ([facility]) Outpatient Attender: GWEN LEABRENDA [facility] 05/21/2021 10:00: 00 AM EDT [facility] Outpatient Attender: Ragini Mac 05/20/2021 01:00:00 PM EDT [facility] Outpatient [facility] 05/16/2021 12:00:00 AM EDT eCW1 ([facility]) [facility]: [facility] 02:00: 00 PM EDT [facility] Outpatient [facility] 05/05/2021 12:00:00 AM EDT eCW1 ([facility]) Outpatient [facility] 05/05/2021 12:00:00 AM EDT eCW1 ([facility]) INPATIENT Attender: Jonn Conrad MDAtten leo: CAMILA KRUEGER DOAttender: SANDEEP BAZAN MDAdmitter: SANDEEP BAZAN MDConsultant: Kashif Aguilar JrConsultant: Rashawn Lowry MD 5F-1E 05/01/2021 10:26:00 PM EDT - 05/04/2021 04:32:00 PM EDT [facility] Patient discharged. INPATIENT Attender: JEFE HEIN MDAtten leo: Jonn Conrad MDAttender: Cari De Souza MDAttender: CARI DE SOUZA MDAdmitter: Jonn Conrad MDConsultant: Rashawn Lowry MDConsultant: ANAYELI BADILLO IIConsultant: ANAYELI BADILLO II MDConsultant: Kevin Cervantes 5F-1E 04/25/2021 12:14:00 PM EDT - 04/28/2021 06:00:00 PM EDT [facility] Patient discharged. Emergency Attender: MADIHA Lechugaer: Ventura Gomez PA-C EMERGENCY ROOM-ER 04/24/2021 11:49:00 PM EDT - 04/25/2021 09:55:00 AM EDT [facility] Patient discharged. Outpatient Attender: PROVIDER DEFAULT 04/20/2021 04:35:45 PM EDT [facility] Outpatient [facility] 04/15/2021 12:00:00 AM EDT eC ([facility]) Emergency Attender: Harley AGUILARCReferrer: Scott Gomez PA-C EMERGENCY ROOM-ER 04/12/2021 09:19:00 PM EDT - 04/13/2021 01:29:00 AM EDT [facility] Patient discharged. Outpatient Attender: Harley AGUILARCConsultant: [facility] [id number] 04/12/2021 09:06:00 PM EDT [facility] Outpatient Attender: GWEN JEAN [facility] 04/09/2021 10:00: 00 [facility] [id number] [facility] [address], [facility] [place] [address], Ph. Attender: David Willard MD [place] - [facility] 04/07/2021 12:00:00 AM EDT DAVID ([facility]) David Willard MD: [id number] [address] [facility] [address], [facility] [place] [address], Ph. [phone] Attender: David Willard MD [facility] - [facility] 04/02/2021 12:00:00 AM EDT DAVID ([facility]) Outpatient [facility] 03/28/2021 12:00:00 AM EDT eCW1 ([facility]) Outpatient [facility] 03/28/2021 12:00:00 AM EDT eCW1 ([facility]) INPATIENT Attender: FREDERICK GOODWIN MD 5F-GX 03/26/2021 05:43:40 PM EDT [facility] INPATIENT Attender: BRAYAN ALLISON MD 5F-GX 03/25/2021 09:53:3 9 AM EDT [facility] INPATIENT Attender: CARI DE SOUZA MDA ttender: Cari De Souza MDAttender: WINSTON QUIROGA MDAttender: Jonn Conrad MDAttender: MARTIN SIBLEY MDAttender: Martin Sibley MDAdmitter: Jonn Conrad MDConsultant: Rashawn Lowry MDConsultant: Kevin Cervantes 5F-1E 03/23/2021 03:25:00 PM E DT - 03/27/2021 04:11:00 PM EDT [facility] Patient discharged. Outpatient [id number] 03/22/2021 08:11:[address] [facility] Emergency Attender: WILLIE CISNEROSeferrer: Scott Gomez PA-C EMERGENCY ROOM-ER 03/22/2021 03:34:00 PM EDT - 03/23/2021 12:40:00 PM EDT [facility] Patient discharged. Outpatient Attender: GWEN JEAN FPRUTH 03/19/2021 09:49: 00 AM EDT [facility] Outpatient Attender: Abida AGUILARCReferrer: Abida Gomez PA-C 03/19/2021 08:00:00 AM EDT [facility] David Willard MD: [id number], [facility] [place] [address], Ph. Attender: David PORTER - [facility] - [facility] 03/18/2021 12:00:00 AM EDT DAVID ([facility]) David Willard MD: [id number], [facility] [place] [address], Ph. Attender: David PORTER [facility] - [facility] 03/18/2021 12:00:00 AM EDT DAVID ([facility]) Preadmit Attender: Abida Gomez PA-C 03/14/2021 08:00 :00 AM EDT [facility] Outpatient [facility] 03/12/2021 12:00:00 AM EDT W ([facility]) Outpatient [facility] 03/11/2021 12:00:00 AM EDT eCW1 ([facility]) Outpatient Attender: GWEN JEAN FPMHNPReferrer: Ventura Gomez PA-C EMERGENCY ROOM-LAB 03/10/2021 03:46:00 PM EDT - 03/10/2021 03:46:00 PM EDT [facility] Outpatient Attender: Abida Sherwoodferrer: Abida Gomez PA-C [facility] 03/10/2021 02:37:00 PM EDT - 03/10/2021 02:37:00 PM EDT [facility] Outpatient [facility] 03/10/2021 12:00:00 AM EDT eCW1 ([facility]) Outpatient [facility] 03/03/2021 12:00:00 AM EDT eCW1 ([facility]) Outpatient Attender: GWEN JEAN FPMHRUTH 02/13/2021 01:00: 00 PM EDT [facility] Outpatient [facility] 02/11/2021 12:00:00 AM EDT eCW1 ([facility]) Outpatient [facility] 02/04/2021 12:00:00 AM EDT eCW1 ([facility]) Outpatient Attender: JUVE FOOTE PA-C 01/31/2021 11:00:00 AM EDT [facility] Outpatient [facility] 01/30/2021 12:00:00 AM EDT eCW1 ([facility]) Outpatient [facility] 01/30/2021 12:00:00 AM EDT eCW1 ([facility]) Outpatient Attender: Pam BairesReferrer: [facility] EMERGENCY [facility] 01/29/2021 01:00:00 PM EDT - 01/29/2021 01:00:00 PM EDT [facility] Outpatient Attender: Ragini Watts 01/29/2021 10:00:00 AM EDT [facility] Outpatient [facility] 01/29/2021 12:00:00 AM EDT eCW1 ([facility]) Outpatient [facility] 01/22/2021 12:00:00 AM EDT eCW1 ([facility]) Outpatient [facility] 01/21/2021 12:00:00 AM EDT eCW1 ([facility]) Outpatient [facility] 01/16/2021 12:00:00 AM EDT eCW1 ([facility]) Outpatient Attender: Pam Daniels: [facility] EM[facility]GENCY [facility] 01/15/2021 08:03:00 AM EDT - 01/15/2021 08:03:00 AM EDT [facility] Outpatient [facility] 01/15/2021 12:00:00 AM EDT eCW1 ([facility]) Outpatient [facility] 01/15/2021 12:00:00 AM EDT eCW1 ([facility]) Emergency Attender: WILLIE Lozada: [facility] EMERGENCY ROOM-ER 06/04/2019 12:15:00 PM EDT - 06/04/2019 03:18:00 PM EDT [facility] Patient discharged. Emergency Attender: DENNISE Lozada: [facility] EMERGENCY ROOM-ER 05/10/2019 06:22:00 AM EDT - [facility]ender: MADIHA MANUEL EMERGENCY ROOM-ER 01/17/2018 12:13:00 AM EDT - 01/17/2018 02:40:00 AM [facility] [place] Emergency Attender: MADIHA MANUEL EMERGENCY ROOM-ER 11/22/2017 09:40:00 PM EDT - 11/23/2017 02:25:00 AM [facility] [place] Emergency Attender: WILLIE MANUEL EMERGENCY ROOM-ER 11/07 02:49:00 PM EDT - 11/19/2017 [facility] DENNISE MANUEL EMERGENCY ROOM-ER 08:49:00 PM EST - 09/30/2017 12:27:00 AM [facility] Outpatient Attender: [facility] EMERGENCY ROOM-LAB 0 08/25/2017 04:16:00 PM EST - 08/25/2017 04:16:00 PM [facility] Emergency Attender: OSKAR MANUEL EMERGENCY ROOM- ER 04/13/2017 09:15:00 PM EDT - 04/14/2017 01:54:00 AM EDT [facility] Emergency Attender: DENNISE MANUEL EMERGENCY ROOM-ER 09:02:00 PM EDT - 03/21/2017 01:55:00 AM EDT [facility] Emergency Attender: MADIHA MANUEL EMERGENCY ROOM-ER 12/30/2016 09:12:00 PM EDT - 12/31/2016 01:50:00 AM EDT [facility] Medications Medication Brand Name Start Date Product Form Dose Route Admi nistrative Instructions Pharmacy Instructions Status Indications Reaction Description Data Source(s) lamotrigine 25 MG Oral Tablet lamoTRIgine 25 MG lamoTRIgine 25 MG 05/21/2021 12:00:00 AM EDT 1.0 {tablet} active la moTRIgine 25 MG eCW1 ([facility]) lamotrigine 25 MG Oral Tablet lamoTRIgine 25 MG lamoTRIgine 25 MG 05/21/2021 12:00:00 AM EDT 1.0 {tablet} active la moTRIgine 25 MG eCW1 ([facility]) Acetaminophen 325 MG / Hydrocodone Nury trate 7.5 MG Oral Tablet HYDROcodone- acetaminophen (NORCO) 7.5-325 mg per tablet HYDROcodone-acetaminophen (NORCO) 7.5-325 mg per tablet 05/04/2021 12:00:00 AM EDT 1 {tbl} oral active Take 1 tablet by mouth every 6 (six) hours if needed for moderate pain or severe pain for up to 3 doses. [facility] Misoprostol 0.2 MG Oral Tablet miSOPROStoL (CYTOTEC) 2 00 mcg tablet miSOPROStoL (CYTOTEC) 200 mcg tablet 05/04/2021 12:00:00 AM EDT 200 ug oral active Take 1 tablet (200 mcg total) by mouth 4 (four) times a day. [facility] Methylcellulose 500 MG Oral Tablet methy lcellulose, laxative, (CITRUCEL) 500 mg tablet methylcellulose, laxative, (CITRUCEL) 500 mg tablet 12:00:00 AM EDT 1000 mg oral aborted Take 2 t ablets (1,000 mg total) by mouth 2 (two) times a day. [facility] Lactobacillus rhamnosus GG [id number] U NT Oral Capsule lactobacillus rhamnosus (PROBIOTIC EXTRA STRENGTH) 20 billion cell capsule lactobacillus rhamnosus (PROBIOTIC EXTRA STRENGTH) 20 billion cell capsule 03/27/2021 12:00:00 AM EDT 1 {capsule} oral aborted Take 1 capsule by [facility] 1 (one) time each day. [facility] brexpiprazole 1 MG Oral Tablet [Rexulti] Rexulti 1 MG Rexult i 1 MG 03/19/2021 12:00:00 AM EDT 1.0 {tablet} active Re xulti 1 MG eCW1 ([facility]) brexpiprazole 2 MG Oral Tablet [Rexulti] Rexulti 2 MG Rexult i 2 MG 03/19/2021 12:00:00 AM EDT 1.0 {tablet} active Re xulti 2 MG eCW1 ([facility]) brexpiprazole 1 MG Oral Tablet [Rexulti] Rexulti 1 MG Rexult i 1 MG 03/19/2021 12:00:00 AM EDT 1.0 {tablet} active Re xulti 1 MG eCW1 ([facility]) brexpiprazole 2 MG Oral Tablet [Rexulti] Rexulti 2 MG Rexult i 2 MG 03/19/2021 12:00:00 AM EDT 1.0 {tablet} active Re xulti 2 MG eCW1 ([facility]) brexpiprazole 1 MG Oral Tablet [Rexulti] Rexulti 1 MG Rexult i 1 MG 03/19/2021 12:00:00 AM EDT 1.0 {tablet} active Re xulti 1 MG eCW1 ([facility]) brexpiprazole 1 MG Oral Tablet [Rexulti] Rexulti 1 MG Rexult i 1 MG 03/19/2021 12:00:00 AM EDT 1.0 {tablet} active Re xulti 1 MG eCW1 ([facility]) brexpiprazole 2 MG Oral Tablet [Rexulti] Rexulti 2 MG Rexult i 2 MG 03/19/2021 12:00:00 AM EDT 1.0 {tablet} active Re xulti 2 MG eCW1 ([facility]) brexpiprazole 2 MG Oral Tablet [Rexulti] Rexulti 2 MG Rexult i 2 MG 03/19/2021 12:00:00 AM EDT 1.0 {tablet} active Re xulti 2 MG eCW1 ([facility]) brexpiprazole 1 MG Oral Tablet [Rexulti] Rexulti 1 MG Rexult i 1 MG 03/19/2021 12:00:00 AM EDT 1.0 {tablet} active Re xulti 1 MG eCW1 ([facility]) brexpiprazole 2 MG Oral Tablet [Rexulti] Rexulti 2 MG Rexult i 2 MG 03/19/2021 12:00:00 AM EDT 1.0 {tablet} active Re xulti 2 MG eCW1 ([facility]) Pierron Carbonate 300 MG Oral Capsule Pierron Carbonate 300 MG 02/13/2021 12:00:00 AM EDT 1.0 {capsule} suspended Pierron Carbonate 300 MG eCW1 ([facility]) Pierron Carbonate 300 MG Oral Capsule Pierron Carbonate 300 MG 02/13/2021 12:00:00 AM EDT 1.0 {capsule} suspended Pierron Carbonate 300 MG eCW1 ([facility]) Prazosin 1 MG Oral Capsule Prazosin HCl 1 MG Prazosin HCl 1 MG 02/13/2021 12:00:00 AM EDT 1.0 {capsule_at_bedtime} active Prazosin HCl 1 MG eCW1 ([facility]) Pierron Carbonate 300 MG Oral Capsule Pierron Carbonate 300 MG 02/13/2021 12:00:00 AM EDT 1.0 {capsule} suspended Pierron Carbonate 300 MG eCW1 ([facility]) Pierron Carbonate 300 MG Oral Capsule Pierron Carbonate 300 MG 02/13/2021 12:00:00 AM EDT 1.0 {capsule} suspended Pierron Carbonate 300 MG eCW1 ([facility]) Prazosin 1 MG Oral Capsule Prazosin HCl 1 MG Prazosin HCl 1 MG 02/13/2021 12:00:00 AM EDT 1.0 {capsule_at_bedtime} active Prazosin HCl 1 MG eCW1 ([facility]) Pierron Carbonate 300 MG Oral Capsule Pierron Carbonate 300 MG 02/13/2021 12:00:00 AM EDT 1.0 {capsule} active L ithium Carbonate 300 MG eCW1 ([facility]) Pierron Carbonate 300 MG Oral Capsule Pierron Carbonate 300 MG 02/13/2021 12:00:00 AM EDT 1.0 {capsule} active L ithium Carbonate 300 MG eCW1 ([facility]) Pierron Carbonate 300 MG Oral Capsule Pierron Carbonate 300 MG 02/13/2021 12:00:00 AM EDT 1.0 {capsule} suspended Pierron Carbonate 300 MG eCW1 ([facility]) Prazosin 1 MG Oral Capsule Prazosin HCl 1 MG Prazosin HCl 1 MG 02/13/2021 12:00:00 AM EDT 1.0 {capsule_at_bedtime} active Prazosin HCl 1 MG eCW1 ([facility]) Pierron Carbonate 300 MG Oral Capsule Pierron Carbonate 300 MG 02/13/2021 12:00:00 AM EDT 1.0 {capsule} suspended Pierron Carbonate 300 MG eCW1 ([facility]) Prazosin 1 MG Oral Capsule Prazosin HCl 1 MG Prazosin HCl 1 MG 02/13/2021 12:00:00 AM EDT 1.0 {capsule_at_bedtime} active Prazosin HCl 1 MG eCW1 ([facility]) Prazosin 1 MG Oral Capsule Prazosin HCl 1 MG Prazosin HCl 1 MG 02/13/2021 12:00:00 AM EDT 1.0 {capsule_at_bedtime} active Prazosin HCl 1 MG eCW1 ([facility]) Prazosin 1 MG Oral Capsule Prazosin HCl 1 MG Prazosin HCl 1 MG 02/13/2021 12:00:00 AM EDT 1.0 {capsule_at_bedtime} active Prazosin HCl 1 MG eCW1 ([facility]) Pierron Carbonate 300 MG Oral Capsule Pierron Carbonate 300 MG 02/13/2021 12:00:00 AM EDT 1.0 {capsule} suspended Pierron Carbonate 300 MG eCW1 ([facility]) Prazosin 1 MG Oral Capsule Prazosin HCl 1 MG Prazosin HCl 1 MG 02/13/2021 12:00:00 AM EDT 1.0 {capsule_at_bedtime} active Prazosin HCl 1 MG eCW1 ([facility]) Prazosin 1 MG Oral Capsule Prazosin HCl 1 MG Prazosin HCl 1 MG 02/13/2021 12:00:00 AM EDT 1.0 {capsule_at_bedtime} active Prazosin HCl 1 MG eCW1 ([facility]) Pierron Carbonate 300 MG Oral Capsule Pierron Carbonate 300 MG 02/13/2021 12:00:00 AM EDT 1.0 {capsule} suspended Pierron Carbonate 300 MG eCW1 ([facility]) Prazosin 1 MG Oral Capsule Prazosin HCl 1 MG Prazosin HCl 1 MG 02/13/2021 12:00:00 AM EDT 1.0 {capsule_at_bedtime} active Prazosin HCl 1 MG eCW1 ([facility]) Prazosin 1 MG Oral Capsule Prazosin HCl 1 MG Prazosin HCl 1 MG 02/13/2021 12:00:00 AM EDT 1.0 {capsule_at_bedtime} active Prazosin HCl 1 MG eCW1 ([facility]) Prazosin 1 MG Oral Capsule Prazosin HCl 1 MG Prazosin HCl 1 MG 02/13/2021 12:00:00 AM EDT 1.0 {capsule_at_bedtime} active Prazosin HCl 1 MG eCW1 ([facility]) Pierron Carbonate 300 MG Oral Capsule Pierron Carbonate 300 MG 02/13/2021 12:00:00 AM EDT 1.0 {capsule} suspended Pierron Carbonate 300 MG eCW1 ([facility]) Prazosin 1 MG Oral Capsule Prazosin HCl 1 MG Prazosin HCl 1 MG 02/13/2021 12:00:00 AM EDT 1.0 {capsule_at_bedtime} active Prazosin HCl 1 MG eCW1 ([facility]) Pierron Carbonate 300 MG Oral Capsule Pierron Carbonate 300 MG 02/13/2021 12:00:00 AM EDT 1.0 {capsule} suspended Pierron Carbonate 300 MG eCW1 ([facility]) Prazosin 1 MG Oral Capsule Prazosin HCl 1 MG Prazosin HCl 1 MG 02/13/2021 12:00:00 AM EDT 1.0 {capsule_at_bedtime} active Prazosin HCl 1 MG eCW1 ([facility]) Pierron Carbonate 300 MG Oral Capsule Pierron Carbonate 300 MG 02/13/2021 12:00:00 AM EDT 1.0 {capsule} suspended Pierron Carbonate 300 MG eCW1 ([facility]) 0.3 ML Epinephrine 1 MG/ML Auto-Injector [Epipen] EpiP en 2-Jacquelyn 0.3 MG/0.3ML EpiPen 2-Jacquelyn 0.3 MG/0.3ML 01/29/2021 12:00:00 AM EDT active EpiPen 2-Jacquelyn 0.3 MG/0.3ML [facility] 0.3 ML Epinephrine 1 MG/ML Auto-Injector [Epipen] EpiP en 2-Jacquelyn 0.3 MG/0.3ML EpiPen 2-Jacquelyn 0.3 MG/0.3ML 01/29/2021 12:00:00 AM EDT active EpiPen 2-Jacquelyn 0.3 MG/0.3ML eCW1 ([facility]) 0.3 ML Epinephrine 1 MG/ML Auto-Injector [Epipen] EpiP en 2-Jacquelyn 0.3 MG/0.3ML EpiPen 2-Jacquelyn 0.3 MG/0.3ML 01/29/2021 12:00:00 AM EDT active EpiPen 2-Jacquelyn 0.3 MG/0.3ML [facility] Levothyroxine Sodium 0.025 MG Oral Tablet Levothyroxin e Sodium 25 MCG Levothyroxine Sodium 25 MCG 01/29/2021 12:00:00 AM EDT active Levothyroxine Sodium 25 MCG [facility] Levothyroxine Sodium 0.05 MG Oral Tablet Levothyroxine Sodium 50 MCG Levothyroxine Sodium 50 MCG 01/29/2021 12:00:00 AM EDT active Levothyroxine Sodium 50 MCG eCW1 ([facility]) Levothyroxine Sodium 0.025 MG Oral Tablet Levothyroxin e Sodium 25 MCG Levothyroxine Sodium 25 MCG 01/29/2021 12:00:00 AM EDT active Levothyroxine Sodium 25 MCG [facility] 0.3 ML Epinephrine 1 MG/ML Auto-Injector [Epipen] EpiP en 2-Jacquelyn 0.3 MG/0.3ML EpiPen 2-Jacquelyn 0.3 MG/0.3ML 01/29/2021 12:00:00 AM EDT active EpiPen 2-Jacquelyn 0.3 MG/0.3ML eCW1 ([facility]) Levothyroxine Sodium 0.025 MG Oral Tablet Levothyroxin e Sodium 25 MCG Levothyroxine Sodium 25 MCG 01/29/2021 12:00:00 AM EDT active Levothyroxine Sodium 25 MCG eCW1 ([facility]) 0.3 ML Epinephrine 1 MG/ML Auto-Injector [Epipen] EpiP en 2-Jacquelyn 0.3 MG/0.3ML EpiPen 2-Jacquelyn 0.3 MG/0.3ML 01/29/2021 12:00:00 AM EDT active EpiPen 2-Jacquelyn 0.3 MG/0.3ML eCW1 ([facility]) 0.3 ML Epinephrine 1 MG/ML Auto-Injector [Epipen] EpiP en 2-Jacquelyn 0.3 MG/0.3ML EpiPen 2-Jacquelyn 0.3 MG/0.3ML 01/29/2021 12:00:00 AM EDT active EpiPen 2-Jacquelyn 0.3 MG/0.3ML [facility] Levothyroxine Sodium 0.025 MG Oral Tablet Levothyroxin e Sodium 25 MCG Levothyroxine Sodium 25 MCG 01/29/2021 12:00:00 AM EDT active Levothyroxine S[facility] 25 MCG [facility] 0.3 ML Epinephrine 1 MG/ML Auto-Injector [Epipen] EpiP en 2-Jacquelyn 0.3 MG/0.3ML EpiPen 2-Jacquelyn 0.3 MG/0.3ML 01/29/2021 12:00:00 AM EDT active EpiPen 2-Jacquelyn 0.3 MG/0.3ML eCW1 ([facility] [place]) 0.3 ML Epinephrine 1 MG/ML Auto-Injector [Epipen] EpiP en 2-Jacquelyn 0.3 MG/0.3ML EpiPen 2-Jacquelyn 0.3 MG/0.3ML 01/29/2021 12:00:00 AM EDT active EpiPen 2-Jacquelyn 0.3 MG/0.3ML eCW1 ([facility] [place]) 0.3 ML Epinephrine 1 MG/ML Auto-Injector [Epipen] EpiP en 2-Jacquelyn 0.3 MG/0.3ML EpiPen 2-Jacquelyn 0.3 MG/0.3ML 01/29/2021 12:00:00 AM EDT active EpiPen 2-Jacquelyn 0.3 MG/0.3ML eCW1 ([facility] [place]) Levothyroxine Sodium 0.05 MG Oral Tablet Levothyroxine Sodium 50 MCG Levothyroxine Sodium 50 MCG 01/29/2021 12:00:00 AM EDT active Levothyroxine Sodium 50 MCG eCW1 ([facility] [place]) 0.3 ML Epinephrine 1 MG/ML Auto-Injector [Epipen] EpiP en 2-Jacquelyn 0.3 MG/0.3ML EpiPen 2-Jacquelyn 0.3 MG/0.3ML 01/29/2021 12:00:00 AM EDT active EpiPen 2-Jacquelyn 0.3 MG/0.3ML eCW1 ([facility] [place]) 0.3 ML Epinephrine 1 MG/ML Auto-Injector [Epipen] EpiP en 2-Jacquelyn 0.3 MG/0.3ML EpiPen 2-Jacquelyn 0.3 MG/0.3ML 01/29/2021 12:00:00 AM EDT active EpiPen 2-Jacquelyn 0.3 MG/0.3ML eCW1 ([facility] [place]) 0.3 ML Epinephrine 1 MG/ML Auto-Injector [Epipen] EpiP en 2-Jacquelyn 0.3 MG/0.3ML EpiPen 2-Jacquelyn 0.3 MG/0.3ML 01/29/2021 12:00:00 AM EDT active EpiPen 2-Jacquelyn 0.3 MG/0.3ML eCW1 ([facility] [place]) 0.3 ML Epinephrine 1 MG/ML Auto-Injector [Epipen] EpiP en 2-Jacquelyn 0.3 MG/0.3ML EpiPen 2-Jacquelyn 0.3 MG/0.3ML 01/29/2021 12:00:00 AM EDT active EpiPen 2-Jacquelyn 0.3 MG/0.3ML eCW1 ([facility] [place]) Levothyroxine Sodium 0.05 MG Oral Tablet Levothyroxine Sodium 50 MCG Levothyroxine Sodium 50 MCG 01/29/2021 12:00:00 AM EDT active Levothyroxine Sodium 50 MCG eCW1 ([facility] [place]) 0.3 ML Epinephrine 1 MG/ML Auto-Injector [Epipen] EpiP en 2-Jacquelyn 0.3 MG/0.3ML EpiPen 2-Jacquelyn 0.3 MG/0.3ML 01/29/2021 12:00:00 AM EDT active EpiPen 2-Jacquelyn 0.3 MG/0.3ML eCW1 ([facility] [place]) Levothyroxine Sodium 0.05 MG Oral Tablet Levothyroxine Sodium 50 MCG Levothyroxine Sodium 50 MCG 01/29/2021 12:00:00 AM EDT active Levothyroxine Sodium 50 MCG eCW1 ([facility] [place]) 0.3 ML Epinephrine 1 MG/ML Auto-Injector [Epipen] EpiP en 2-Jacquelyn 0.3 MG/0.3ML EpiPen 2-Jacquelyn 0.3 MG/0.3ML 01/29/2021 12:00:00 AM EDT active EpiPen 2-Jacquelyn 0.3 MG/0.3ML eCW1 ([facility] [place]) Levothyroxine Sodium 0.025 MG Oral Tablet Levothyroxin e Sodium 25 MCG Levothyroxine Sodium 25 MCG 01/29/2021 12:00:00 AM EDT active Levothyroxine Sodium 25 MCG eCW1 ([facility] [place]) 0.3 ML Epinephrine 1 MG/ML Auto-Injector [Epipen] EpiP en 2-Jacquelyn 0.3 MG/0.3ML EpiPen 2-Jacquelyn 0.3 MG/0.3ML 01/29/2021 12:00:00 AM EDT active EpiPen 2-Jacquelyn 0.3 MG/0.3ML eCW1 ([facility] [place]) Levothyroxine Sodium 0.05 MG Oral Tablet Levothyroxine Sodium 50 MCG Levothyroxine Sodium 50 MCG 01/29/2021 12:00:00 AM EDT active Levothyroxine Sodium 50 MCG eCW1 ([facility] [place]) Levothyroxine Sodium 0.025 MG Oral Tablet Levothyroxin e Sodium 25 MCG Levothyroxine Sodium 25 MCG 01/29/2021 12:00:00 AM EDT active Levothyroxine Sodium 25 MCG eCW1 ([facility] [place]) Levothyroxine Sodium 0.05 MG Oral Tablet Levothyroxine Sodium 50 MCG Levothyroxine Sodium 50 MCG 01/29/2021 12:00:00 AM EDT active Levothyroxine Sodium 50 MCG eCW1 ([facility] [place]) 0.3 ML Epinephrine 1 MG/ML Auto-Injector [Epipen] EpiP en 2-Jacquelyn 0.3 MG/0.3ML EpiPen 2-Jacquelyn 0.3 MG/0.3ML 01/29/2021 12:00:00 AM EDT active EpiPen 2-Jacquelyn 0.3 MG/0.3ML eCW1 ([facility] [place]) Levothyroxine Sodium 0.05 MG Oral Tablet Levothyroxine Sodium 50 MCG Levothyroxine Sodium 50 MCG 01/29/2021 12:00:00 AM EDT active Levothyroxine Sodium 50 MCG eCW1 ([facility] [place]) Levothyroxine Sodium 0.05 MG Oral Tablet Levothyroxine Sodium 50 MCG Levothyroxine Sodium 50 MCG 01/29/2021 12:00:00 AM EDT active Levothyroxine Sodium 50 MCG eCW1 ([facility] [place]) Levothyroxine Sodium 0.05 MG Oral Tablet Levothyroxine Sodium 50 MCG Levothyroxine Sodium 50 MCG 01/29/2021 12:00:00 AM EDT active Levothyroxine Sodium 50 MCG eCW1 ([facility]) Levothyroxine Sodium 0.05 MG Oral Tablet Levothyroxine Sodium 50 MCG Levothyroxine Sodium 50 MCG 01/29/2021 12:00:00 AM EDT active Levothyroxine Sodium 50 MCG eCW1 ([facility] [place]) Levothyroxine Sodium 0.025 MG Oral [...] capsule by mouth 3 (three) times daily. 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 Misoprostol 0.2 MG Oral Tablet miSOPROStol 200 MCG Ora l Tablet (CYTOTEC) miSOPROStol 200 MCG Oral Tablet (CYTOTEC) 08/04/2019 12:00:00 AM EST 200 ug Oral active Take 1 tablet by anna th every 6 (six) hours [facility] Hair, Skin and Nails Advanced co mpleted Hair, Skin and Nails Advanced DAVID ([facility]) quetiapine 25 MG Oral Tablet [Seroquel] Seroquel 25 mg tablet Take 1 tablet twice a day by oral route. Seroquel 25 mg tablet Take 1 tablet twic e a day by oral route. 1 completed quetiapine 25 MG Oral Tablet [Seroquel] DAVID ([facility]) OneTouch Delica Lancets completed OneTouch Delica Lancets DAVID ([facility]) One Touch II Test strips [id number] comple asher One Touch II Test strips DAVID ([facility]) gabapentin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 LIC PANEL</td><td>Routine</td><td>04/28/2021 4:34 AM EDT</td><td></td><td> </td> 04/28/2021 04:34:00 AM EDT [facility] POCT GLUCOSE METER UNSOLICITED RESULTS <td>POCT GLUCOS E METER UNSOLICITED RESULTS</td><td>Routine</td><td>04/28/2021 12:00 AM EDT</td><td></td><td> </td> 04/28/2021 12:00:00 AM EDT [facility] POCT GLUCOSE METER UNSOLICITED RESULTS <td>POCT GLUCOS E METER UNSOLICITED RESULTS</td><td>Routine</td><td>04/27/2021 5:50 PM EDT</td><td></td><td> </td> 04/27/2021 05:50:00 PM EDT [facility] IRON <td>IRON AND TIBC</td><td>Ro utine</td><td>04/27/2021 2:08 PM EDT</td><td></td><td> </td> 04/27/2021 02:08:00 PM EDT [facility] FERRITIN <td>FERRITIN</td><td>Routine </td><td>04/27/2021 2:08 PM EDT</td><td></td><td> </td> 04/27/2021 02:08:00 PM EDT [facility] COMPREHENSIVE METABOLIC PANEL <td>COMPREHENSIVE METABO LIC PANEL</td><td>Routine</td><td>04/27/2021 2:08 PM EDT</td><td></td><td> </td> 04/27/2021 02:08:00 PM EDT [facility] TOXICOLOGY SCREEN, URINE <td>TOXICOLOGY SCREEN, URINE</td><td>Routine</td><td>04/27/2021 12:00 PM EDT</td><td></td><td> </td> 04/27/2021 12:00:00 PM EDT [facility] POCT GLUCOSE METER UNSOLICITED RESULTS <td>POCT GLUCOS E METER UNSOLICITED RESULTS</td><td>Routine</td><td>04/27/2021 11:47 AM EDT</td><td></td><td> </td> 04/27/2021 11:47:00 AM EDT [facility] POCT GLUCOSE METER UNSOLICITED RESULTS <td>POCT GLUCOS E METER UNSOLICITED RESULTS</td><td>Routine</td><td>04/27/2021 5:20 AM EDT</td><td></td><td> </td> 04/27/2021 05:20:00 AM EDT [facility] BLOOD COUNT COMPLETE AUTO&AUTO DIFRNTL WBC COUNT <td>H C CBC W/ DIFFERENTIAL</td><td>Routine</td><td>04/27/2021 4:56 AM EDT</td><td></td><td> </td> 04/27/2021 04:56:00 AM EDT [facility] BASIC METABOLIC PANEL CALCIUM TOTAL <td>BASIC METABOLI C PANEL</td><td>Routine</td><td>04/27/2021 4:56 AM EDT</td><td></td><td> </td> 04/27/2021 04:56:00 AM EDT [facility] POCT GLUCOSE METER UNSOLICITED RESULTS <td>POCT GLUCOS E METER UNSOLICITED RESULTS</td><td>Routine</td><td>04/26/2021 11:48 PM EDT</td><td></td><td> </td> 04/26/2021 11:48:00 PM EDT [facility] POCT GLUCOSE METER UNSOLICITED RESULTS <td>POCT GLUCOS E METER UNSOLICITED RESULTS</td><td>Routine</td><td>04/26/2021 6:48 PM EDT</td><td></td><td> </td> 04/26/2021 06:48:00 PM EDT [facility] POCT GLUCOSE METER UNSOLICITED RESULTS <td>POCT GLUCOS E METER UNSOLICITED RESULTS</td><td>Routine</td><td>04/26/2021 12:04 PM EDT</td><td></td><td> </td> 04/26/2021 12:04:00 PM EDT [facility] POCT GLUCOSE METER UNSOLICITED RESULTS <td>POCT GLUCOS E METER UNSOLICITED RESULTS</td><td>Routine</td><td>04/26/2021 4:57 AM EDT</td><td></td><td> </td> 04/26/2021 04:57:00 AM EDT [facility] BLOOD COUNT COMPLETE AUTO&AUTO DIFRNTL WBC COUNT <td>H C CBC W/ DIFFERENTIAL</td><td>Routine</td><td>04/26/2021 4:36 AM EDT</td><td></td><td> </td> 04/26/2021 04:36:00 AM EDT [facility] MAGNESIUM <td>MAGNESIUM</td><td>Routin e</td><td>04/26/2021 4:36 AM EDT</td><td></td><td> </td> 04/26/2021 04:36:00 AM EDT [facility] COMPREHENSIVE METABOLIC PANEL <td>COMPREHENSIVE METABO LIC PANEL</td><td>Routine</td><td>04/26/2021 4:36 AM EDT</td><td></td><td> </td> 04/26/2021 04:36:00 AM EDT [facility] POCT GLUCOSE METER UNSOLICITED RESULTS <td>POCT GLUCOS E METER UNSOLICITED RESULTS</td><td>Routine</td><td>04/25/2021 11:19 PM EDT</td><td></td><td> </td> 04/25/2021 11:19:00 PM EDT [facility] URNLS DIP STICK/TABLET RGNT AUTO W/O MICROSCOPY <td><c ontent ID="[id number]">URINALYSIS W/MICROSCOPIC & CULTURE IF INDICATED</content></td><td>STAT</td><td>04/25/2021 5:00 PM EDT</td><td></td><td><paragraph styleCode="header">Results for this procedure are in the <content styleCode="[email or web address]">results section</content>.</paragraph></td> 04/25/2021 05:00:00 PM EDT [facility] PROTHROMBIN TIME <td>PROTHROMBIN TIME NO THER APY OR UNKNOWN</td><td>STAT</td><td>04/25/2021 4:12 PM EDT</td><td></td><td> </td> 04/25/2021 04:12:00 PM EDT [facility] THROMBOPLASTIN TIME PARTIAL PLASMA/WHOLE BLOOD <td>PTT NO THERAPY OR UNKNOWN</td><td>STAT</td><td>04/25/2021 4:12 PM EDT</td><td></td><td> </td> 04/25/2021 04:12:00 PM EDT [facility] BLOOD COUNT COMPLETE AUTO&AUTO DIFRNTL WBC COUNT <td>H C CBC W/ DIFFERENTIAL</td><td>STAT</td><td>04/25/2021 4:12 PM EDT</td><td></td><td> </td> 04/25/2021 04:12:00 PM EDT [facility] TRIIODOTHYRONINE T3 TOTAL TT3 <td>T3</td><td>Routine</ td><td>04/25/2021 4:12 PM EDT</td><td></td><td> </td> 04/25/2021 04:12:00 PM EDT [facility] THYROID STIMULATING HORMONE TSH <td>TSH</td><td>STAT</ td><td>04/25/2021 4:12 PM EDT</td><td></td><td> </td> 04/25/2021 04:12:00 PM EDT [facility] THYROXINE FREE <td>T4, FREE</td><td>Routine </td><td>04/25/2021 4:12 PM EDT</td><td></td><td> </td> 04/25/2021 04:12:00 PM EDT [facility] MAGNESIUM <td>MAGNESIUM</td><td>STAT</ td><td>04/25/2021 4:12 PM EDT</td><td></td><td> </td> 04/25/2021 04:12:00 PM EDT [facility] LIPASE <td>LIPASE</td><td>STAT</td> <td>04/25/2021 4:12 PM EDT</td><td></td><td> </td> 04/25/2021 04:12:00 PM EDT [facility] COMPREHENSIVE METABOLIC PANEL <td>COMPREHENSIVE METABO LIC PANEL</td><td>STAT</td><td>04/25/2021 4:12 PM EDT</td><td></td><td> </td> 04/25/2021 04:12:00 PM EDT [facility] COLONOSCOPY <td>COLONOSCOPY</td><td></td ><td>03/27/2021 10:28 AM EDT</td><td></td><td> </td> 03/27/2021 10:28:41 AM EDT [facility] CUL BACT STOOL AEROBIC ADDL PATHOGENS&ID EA <td>ENTERI C PATHOGENS, PCR (FOR DX INSTEAD OF INITIAL STOOL CULTURE)</td><td>Routine</td><td>03/26/2021 4:15 PM EDT</td><td></td><td> </td> 03/26/2021 04:15:00 PM EDT [facility] BLOOD COUNT COMPLETE AUTOMATED <td>CBC</td><td>Routine </td><td>03/26/2021 4:28 AM EDT</td><td></td><td> </td> 03/26/2021 04:28:00 AM EDT [facility] MAGNESIUM <td>MAGNESIUM</td><td>Routin e</td><td>03/26/2021 4:28 AM EDT</td><td></td><td> </td> 03/26/2021 04:28:00 AM EDT [facility] BASIC METABOLIC PANEL CALCIUM TOTAL <td>BASIC METABOLI C PANEL</td><td>Routine</td><td>03/26/2021 4:28 AM EDT</td><td></td><td> </td> 03/26/2021 04:28:00 AM EDT [facility] UPPER GI ENDOSCOPY <td>UPPER GI ENDOSCOPY</td>< td></td><td>03/25/2021 10:41 AM EDT</td><td></td><td> </td> 03/25/2021 10:41:55 AM EDT [facility] UPPER GI NDSC DX W/WO COLLECTION SPECIMEN <td>EGD (ESOPHAGOGASTRODUODENOSCOPY)</td><td></td><td>03/25/2021 10:06 AM EDT</td><td> GI bleed</td><td></td> 03/25/2021 10:06:00 AM EDT - 03/25/2021 10:37:00 AM ED T [facility] BLOOD COUNT COMPLETE AUTO&AUTO DIFRNTL WBC COUNT <td>H C CBC W/ DIFFERENTIAL</td><td>Routine</td><td>03/25/2021 4:20 AM EDT</td><td></td><td> </td> 03/25/2021 04:20:00 AM EDT [facility] BASIC METABOLIC PANEL CALCIUM TOTAL <td>BASIC METABOLI C PANEL</td><td>Routine</td><td>03/25/2021 4:20 AM EDT</td><td></td><td> </td> 03/25/2021 04:20:00 AM EDT [facility] BLOOD COUNT COMPLETE AUTO&AUTO DIFRNTL WBC COUNT <td>H C CBC W/ DIFFERENTIAL</td><td>Routine</td><td>03/24/2021 4:29 AM EDT</td><td></td><td> </td> 03/24/2021 04:29:00 AM EDT [facility] MAGNESIUM <td>MAGNESIUM</td><td>Routin e</td><td>03/24/2021 4:29 AM EDT</td><td></td><td> </td> 03/24/2021 04:29:00 AM EDT [facility] COMPREHENSIVE METABOLIC PANEL <td>COMPREHENSIVE METABO LIC PANEL</td><td>Routine</td><td>03/24/2021 4:29 AM EDT</td><td></td><td> </td> 03/24/2021 04:29:00 AM EDT [facility] POCT GLUCOSE METER UNSOLICITED RESULTS <td>POCT GLUCOS E METER UNSOLICITED RESULTS</td><td>Routine</td><td>03/23/2021 10:25 PM EDT</td><td></td><td> </td> 03/23/2021 10:25:00 PM EDT [facility] BLOOD COUNT COMPLETE AUTO&AUTO DIFRNTL WBC COUNT <td>H C CBC W/ DIFFERENTIAL</td><td>STAT</td><td>03/23/2021 8:42 PM EDT</td><td></td><td> </td> 03/23/2021 08:42:00 PM EDT [facility] C-REACTIVE PROTEIN <td>C-REACTIVE PROTEIN</td>< td>Routine</td><td>03/23/2021 8:42 PM EDT</td><td></td><td> </td> 03/23/2021 08:42:00 PM EDT [facility] MAGNESIUM <td>MAGNESIUM</td><td>STAT</ td><td>03/23/2021 8:42 PM EDT</td><td></td><td> </td> 03/23/2021 08:42:00 PM EDT [facility] LACTATE <td>LACTIC ACID</td><td>Rout ine</td><td>03/23/2021 8:42 PM EDT</td><td></td><td> </td> 03/23/2021 08:42:00 PM EDT [facility] COMPREHENSIVE METABOLIC PANEL <td>COMPREHENSIVE METABO LIC PANEL</td><td>STAT</td><td>03/23/2021 8:42 PM EDT</td><td></td><td> </td> 03/23/2021 08:42:00 PM EDT [facility] OXYGEN DAILY PROTOCOL <td>OXYGEN DAILY PROTOCOL</td><td>Routine</td><td>03/23/2021 5:48 PM EDT</td><td></td><td></td> 03/23/2021 05:48:21 PM EDT [facility] OXYGEN DAILY PROTOCOL <td>OXYGEN DAILY PROTOCOL</td><td>Routine</td><td>03/23/2021 5:48 PM EDT</td><td></td><td></td> 03/23/2021 05:48:21 PM EDT [facility] MRI, lumbar spine, w/wo contrast 03/18/2021 12:00:00 A M EDT DAVID ([facility]) ECG ROUTINE ECG W/LEAST 12 LDS W/I&R 03/10/2021 12:00: 00 AM EDT [email or web address] ([facility]) Results ID Date Data Source [id number] 06/17/2021 12:31:39 PM EST [facility] Name Value Range Interpretation Code Description Data Arabella rce(s) Supporting Document(s) Care Plan [facility] FLUEZx2zUbFCOoRk20/AASncADErg1LuGEymBOr1YQljVNHzW6LmWKT6rH5sCZC8YGiENvIyRgDtWBD0 lbm [file] [facility]+5SrJYsoKSFsO2vFMj8+33/0VRJtuFBDjg3K325 [file] ICAgICAgICAgICAgICAgICAgICAgICAgICAgICAgIC AgICAgICAgICAgICAgICAgICAgICAgICAgICAgICAgICAgICANCiAgICAgICAgICAgICAgICAgICAgIC AgICAgICAgICAgICAgICAgICAgICAgICAgICAgICAgICAgICAgICAgICAgICAgICAgICAgICAgICAgIC AgICAgICAgICAgICAgICAgICANCiAgICAgICAgICAg ICAgICAgICAgICAgICAgICAgICAgICAgICAgICAgICAgICAgICAgICAgICAgICAgICAgICAgICAgICAg ICAgICAgICAgICAgICAgICAgICAgICAgICAgICANCiAgICAgICAgICAgICAgICAgICAgICAgICAgICAg ICAgICAgICAgICAgICAgICAgICAgICAgICAgICAgIC AgICAgICAgICAgICAgICAgICAgICAgICAgICAgICAgICAgICAgICANCiAgICAgICAgICAgICAgICAgIC AgICAgICAgICAgICAgICAgICAgICAgICAgICAgICAgICAgICAgICAgICAgICAgICAgICAgICAgICAgIC AgICAgICAgICAgICAgICAgICAgICANCiAgICAgICAg ICAgICAgICAgICAgICAgICAgICAgICAgICAgICAgICAgICAgICAgICAgICAgICAgICAgICAgICAgICAg ICAgICAgICAgICAgICAgICAgICAgICAgICAgICAgICANCiAgICAgICAgICAgICAgICAgICAgICAgICAg ICAgICAgICAgICAgICAgICAgICAgICAgICAgICAgIC AgICAgICAgICAgICAgICAgICAgICAgICAgICAgICAgICAgICAgICAgICANCiAgICAgICAgICAgICAgIC AgICAgICAgICAgICAgICAgICAgICAgICAgICAgICAgICAgICAgICAgICAgICAgICAgICAgICAgICAgIC AgICAgICAgICAgICAgICAgICAgICAgICANCiAgICAg ICAgICAgICAgICAgICAgICAgICAgICAgICAgICAgICAgICAgICAgICAgICAgICAgICAgICAgICAgICAg ICAgICAgICAgICAgICAgICAgICAgICAgICAgICAgICAgICANCiAgICAgICAgICAgICAgICAgICAgICAg ICAgICAgICAgICAgICAgICAgICAgICAgICAgICAgIC AgICAgICAgICAgICAgICAgICAgICAgICAgICAgICAgICAgICAgICAgICAgICANCjw/cDGrN8mavVNrna A3Y0jmCv6XIw1LHN7vt4LbAXNyHMrsgiMvEftDJnOhBYHmFkrHGrz3LKjpXC0NrVRnS9AdG7RqZYteKM 1QXCOxNUEumHWdIHDmMPJeLjR9FBMtUNqrLH3RhLVb APrgVWNbTCEwMjOhFTCvNI2VHATdN834axItNz0ARx6KHlFpXO1oiz3RWriyLDYeUhjSWwx9GPlfAM3P mQKgrUPkQZOiHCOMHcDmG5dzu4IrPxznONBBJEciWC2Lk0JqdWScNMz+Xn1MKH0ms9KvMKtwDSEaWE0j wm9ZYMcGXrSxI8YwdCbmDSXjxmJgAJscgiZuzYLSVA BsFHRzj39nozopZn9mIVIwDFUrMA3wTHEbSUWaBbNyFQZKGV4NBZSxOSKxsBTcATYvFKLJQW0NROkeLP B7FbeovuQuxOXbRLzwTE5YDXTmacNoYvhxKFSDXPd+Bf6ZKU6nr8SgPLriHWHiKY8xur5EBKgXPmNmC0 P2rVMkK2O1RSbbDt3CIESyGMDiXrKrNZXHVCokNS8B PA0rpbR8EJ4YjIPjLCWgFNCvwTZiOYo2V53jsUTsJYrnXN3FXHU+Mau+Tk3ASLOvJOJcXCZmTzKlEHOP TeCxM9FzF1QCb3KkW3EnQO13gRezzlTyKBpyQG2PJR9qWCGxJPMBGW3ByRUloR6mxbVdThMqSULZDfDb E33frEWqWLRaFTO3WOBiPx3PPTBbW0LmtwOjyIduhl OnAYHiLIMEYM4JFQuaiqJbkODckBusLA49qDyvOA1JTf7NUxUjZD7uco3RlNJfRd8GKKAsTR7FPCKgVK DwUYRwFFH6ARNvHvWsZElqXZQdPXPiPPX9ENPvGGYfVM4JDuZtQONfXpQ3OrAsUTCmXOPsbr0GWFFeLJ UmWwG0QzOpSOBxJPLkPPppIRVbVMKdFDU7MXYmDKAl FZ6OVfUaAGWwNXMhALXbQVFzEFLoxy8TWURsHJSrEiI7KkYgBNSaYONbDXmmCSKdTZLqDWH4RCIfZMEg NM3QLnRpQQEmZLYjBwmwCJDlMXLdin0YOZUjTLWyUAR0CaDxRYGbOTGiXIixAERfEJN6Bvh0NHOtQABx ES7DEfQtBTZkPJP1LdOdMWTcJHHxws6XKYZjJKCfCB XgAtMlOVNhYXCuAZoqTJVtPCF0MoRgCXGvZYYbUI5HJdRrYMMaGBX7QICwXVMmDYQkbx8EGALpRPClAL W6KmRzZFWtNFAkBTloEDUpHGY9IQf6WCXkWFEeIY2IKuTkWUOdZFk5DKdyLNFzMRJnsr1AHRMwPDCoMH VyQmUuMTMdKZTkKWyxVBUnBGE8ZEnnFBZlEGJdPS3R KmYcMRAeExRdAAQlNVFnQGOntz0NUFZxHRTdUYQnPaGkURVyPEHcHAlrHPNzTDHoQFt1MUDzVJInWM6O IgOwVOEfOxV5VATgNTVfICFalt1SQDKmBFLtNGJjXuTcZSSiKNTnKAqiVXJvFVFkNng6FLEpPELnCO8R ChXxLFLpHyCgEdLfENHiXABvqb8LUPAxXGZwHhL5Pi XlGMTyFRWtUWrcBBIqKGOcQvR7LUPcQPVyYQ5GExPgYFTaChA5LHxvKHGkWJPzvw4QmZOceHqdzx1NGL hPLu2QwHfjZOKmXWlgAo8ucDFaUYDlGOOMLn8PogJuYSUrLGESLKekSRPnALh4DQtiUPVjCcRvJJWhAH gwU1X0Whs2MRU9CDMbVBUzEqA6PXcvUkOeMcHhKxCi C1Y2CIQ2HEu6DVcsWETeIRZzC5V+HP8tNDc+Kk8Iw9FreqL1ozKzRXduPCDnFu2VQAGLT6NJAr== ID Date Data Source [id number] 06/17/2021 06:04:57 AM EST [facility] Name Value Range Interpretation Code Description Data Arabella rce(s) Supporting Document(s) Nursing Note [facility] JGZUUe3fBwNRWxSx69/QSYdgIEBtc2LdHXftQNh9TMgqUFQhJ3ZvSCZ1nS1vOGY5VKwYZbUuVkEsYHY8 lbm [file] == ID Date Data Source [id number] 06/17/2021 01:33:53 AM EST [facility] Name Value Range Interpretation Code Description Data Arabella rce(s) Supporting Document(s) Care Plan [facility] VEJYRv0aZaCTPxLk82/GZPheMITti0RzVRobKDa2PEhzIKMwR2MqUTR2zK4xIEW5DGtGXqDmFxYdVRO4 lbm [file] [facility]/1SUjnADD66H9HvGmP2DCiH86uVWcEGOisRWUfFZ4yFgUGQ+Raphael/KgtFa7raG1lEI8NQwbmRsozl [file] AgICAgICAgICAgICAgICAgICAgICAgICAgICAgICAgICAgICAgICAgICAgICAgICAgICAgICAgICAgIC ANCiAgICAgICAgICAgICAgICAgICAgICAgICAgICAg ICAgICAgICAgICAgICAgICAgICAgICAgICAgICAgICAgICAgICAgICAgICAgICAgICAgICAgICAgICAg ICAgICAgICAgICANCiAgICAgICAgICAgICAgICAgICAgICAgICAgICAgICAgICAgICAgICAgICAgICAg ICAgICAgICAgICAgICAgICAgICAgICAgICAgICAgIC AgICAgICAgICAgICAgICAgICAgICANCiAgICAgICAgICAgICAgICAgICAgICAgICAgICAgICAgICAgIC AgICAgICAgICAgICAgICAgICAgICAgICAgICAgICAgICAgICAgICAgICAgICAgICAgICAgICAgICAgIC AgICANCiAgICAgICAgICAgICAgICAgICAgICAgICAg ICAgICAgICAgICAgICAgICAgICAgICAgICAgICAgICAgICAgICAgICAgICAgICAgICAgICAgICAgICAg ICAgICAgICAgICAgICANCiAgICAgICAgICAgICAgICAgICAgICAgICAgICAgICAgICAgICAgICAgICAg ICAgICAgICAgICAgICAgICAgICAgICAgICAgICAgIC AgICAgICAgICAgICAgICAgICAgICAgICANCiAgICAgICAgICAgICAgICAgICAgICAgICAgICAgICAgIC AgICAgICAgICAgICAgICAgICAgICAgICAgICAgICAgICAgICAgICAgICAgICAgICAgICAgICAgICAgIC AgICAgICANCiAgICAgICAgICAgICAgICAgICAgICAg ICAgICAgICAgICAgICAgICAgICAgICAgICAgICAgICAgICAgICAgICAgICAgICAgICAgICAgICAgICAg ICAgICAgICAgICAgICAgICANCiAgICAgICAgICAgICAgICAgICAgICAgICAgICAgICAgICAgICAgICAg ICAgICAgICAgICAgICAgICAgICAgICAgICAgICAgIC AgICAgICAgICAgICAgICAgICAgICAgICAgICANCiAgICAgICAgICAgICAgICAgICAgICAgICAgICAgIC AgICAgICAgICAgICAgICAgICAgICAgICAgICAgICAgICAgICAgICAgICAgICAgICAgICAgICAgICAgIC AgICAgICAgICANCjw/jWRnP1tlmFNdswW9V3npSk4L Ba8TGM5dl1OqORIxQRvwgpWxRmrOMxUmNXAxHikVLmw1ZSxwZM7BbGWoU0DiN8VvNFfsTB7UPMZpWAZi oLNiKADdUTUcOrZ6MARdTFcnKA0SjAYiTZxsMEWnDLOpInHpTQVoWO3TQLLuL152wxXmFa3XHc0JQtUc IR8swa4JDfTcSOSqZafDEii8ZQliNH6BoIOybTKeHt ItKPGDGrTjQ6iru2LkGjGcBWVJXYzfMA7Gc6JuwHBwFHv+Du1WUR3he9YzOXjoPsQqVG5zzf8EJDtVPh HrT6PfgHnoTRHyiaWyMQxamgVqfIKWxDlbsUWiW0GplE01qMIbGWCBEtXxsBKeYB93GtPtPyTjTXY7Vd PmVA5rPSahJJ7PCNU1VKlwLXVnMQObM9mLLvEdYRbw FHFutDheCA1LZeElH9AkkuYbhXPiBgQbWMCMJp4+SYuuzmNoNjxTKdO0UQBpe5SaIIi6LC7JKWRuZDbc FI5NGFPcoV1pJSwsJE8OTpOlRZZrTPRLGsNyB02rxQDqHVy0U0FzVvPfVMFfJmukCTOcOHbfFeWgCRFw WyBdDQogID4+ID4+SWqoYW0KTAmlvxPfMIErLt4KNH FiIQWhCI7yKOWkBNOpZ5P0kXbzIEYYFcTfT7vrawkzQI2yHRYhR262bVnwyoBxZNNsLNHhVt5RTPDeDH R5MEItcUHqKcYmKFNAZOslIX5SmQMzBLZ2mP2tPSmxSHShBTCcU3zTWgQgpOcuEE06zIgrnfSrmZYoNP o+Hb4FYV3jh4SbFSd9yqSeTPggPLS2MQgyQXQlLQRi VOQdYNC8JVS5IOKOAzRhLVRdZVVcFVqhODSfEOZlbz5NRKYaDCDvEhD0TDWyAAQmWELyKZcvRCNuIIL7 DFDnPBXcJAYnHX9IYcZnZEFrTGOdSFmcYBSaNGLtez5PYEOrTLQuMfUrGsCsFOTuDERiFGieNCVsUFCr PuT1JJGjZKLgMM9KSaPkBZYsFSV4AJVgFGCuCMLnkq 5EPXCvHKZtLJdlKYBvLQFuSYHgLQykCQSrZCU3BaO3LBKfNLLjGM2XBwZhZCSfJIZ7MgxhAPOdZNPahs 1LFAEpCUTwIwG5KVIqOJMjEKXhZWgzERDuGYE1KEJ5ZLVvKHSpDO6IJyAlWCWoTElrPAAoHQTwXDYdll 7ONSEhDDYgBhU0RLFcTLYbEAXiIPmsRBJtTMK3AXXz ZFOjUBFlYF5NGrFuFHYmTdIoPMjiQWBqQARuyu4MGFNzKRSqNEF5VEXfFJSwOGBgRZjlRITfZBUjVgB5 IYPcYMBaFJ1WGyAjQRQwErC0BSYnZCBmFNFwwv5UHBIpPUYfSBB2YvHyLVIdGTYpDDmkMDGdENNzOAv6 RNUaFIWwLB7YFlTaOYIpDhRkLDBoPNXpOVIuor2MYX ShNJXeKeNiRnIfUYFyRBEvQGvcDJAxXOReXjN8JHEzFCKeZN4BKpWrOILuLzRuZMXvNSImKFAzfy5OZS LjJGUzTyunFDWxNMKbSLCaUWgiRZFgBHN9DCRcLHKgQMNhQA7DTwZyREXfRvitXbZwIXWsBWHqdn5FCX LwBRAmXjB1ZUVmSEYoYVBqGRlgLSNeGCY0UdTiJPWq CQCsEV2BCeWiDFVqBeftAeZrPMAlHKFxmi0VOHLwPZXdAQRtPeTzKXSlRFAcQShuRISuWGM5XXo6JFEf UYVhZG3FHsLjSIMqUoa7DkUtOIUzJCXxuk0EiHGriIzoxw7OFXlTUz9XeOxzUEY3TGldAd4hmRBlZTQq IMQNWn5YizEpXKFmKLOXBVtxKUBmPLWvMJQtIJObLO i0RzVjZIHlASQ4ULY3YDK5FNdqHNDgSaO9OlHaVjLgADY7VLLlRJDxR3B4JqQfIxj4CxaaO7JdZfI+IF 0gDQo+Nx5Aw7VzxpC7muWkHCuzZVt6Sq6XFHEUT6RBDi== ID Date Data Source [id number] 06/16/2021 06:29:05 PM EST [facility] Name Value Range Interpretation Code Description Data Arabella rce(s) Supporting Document(s) Nursing Note [facility] PAFCVc9xNwXFKdCs16/SZWisIDQlu2ZiECgtQZr2FTdsUJIcK0PmUVF8pY8nGQQ1ZMtWUcJzOsEaQAK2 lbm [file] DeufI8ydNoBFohWAM6ZM3CXHOXM7ONPr== ID Date Data Source [id number] 06/16/2021 05:46:27 PM EST [facility] Name Value Range Interpretation Code Description Data Arabella rce(s) Supporting Document(s) Care Plan [facility] AWFXAj1oOyLVRgHp00/WSIzbQYOif4LsSXnlPTo2VGckWFCqC8MsZGB6tN8zOVM3IDrIDeEfNkOyHVW0 lbm [file] A+WN0fBQx+Do4Po1RjbqN7aqDzCCyoBcT3Eu9SIKMKO2HUNz== ID Date Data Source [id number] 06/16/2021 05:48:00 PM EST [facility] Name Value Range Interpretation Code Description Data Arabella rce(s) Supporting Document(s) Phosphorus 3.9 mg/dl 2.5-4.9 Normal (applies to non-numeric resul ts) [facility] The above 1 analytes were performed by [facility] [id number] [facility], ,[place] [address] ID Date Data Source [id number] 06/16/2021 05:16:00 PM EST [facility] Name Value Range Interpretation Code Description Data Arabella rce(s) Supporting Document(s) Magnesium 1.8 mg/dl 1.6-2.6 Normal (applies to non-numeric resul ts) [facility] The above 1 analytes were performed by [facility] [id number] [facility], ,[place] [address] ID Date Data Source [id number] 06/16/2021 12:40:15 PM EST [facility] Name Value Range Interpretation Code Description Data Arabella rce(s) Supporting Document(s) Progress Notes [facility] FIPISc7qMyQTGkXj86/VAMmtFWJay0QdBJfiGHc2OZaeIEMqT1IwXIN3sE5jKCZ0VGbIMgWxOrKcWIQ4 lbm [file] DpjU9SQ6VVOHzZTFHVXi2QMLNrP24BPFDD+1MpVS07 LOS1VO6C+uNmyTvZSmBkOCumDVY1vW+7eZ5OznZYuKjLYopgaRyqQ+yHWwJFHbRSV+UqW+aeBT4A/oP6 zsNQC85YccA4/o/eXH3OTHX2x7w/mAN7COkzBErN9SroK3j/AQ8qoCa93mVlSrdZfOIX8oN02dA1HCnU lqEKR8Nt7kFLOBzvV/uceBrtOgT/w9O8OL74FSHe7r pWwzawv+sI+W7b8o+QMt2wxj+PstpHvQ2u88eGD4B32Qh+zJuzw54C96pygM8P1KKQSvMvmhyY/xLUec /8Kk0Op0CbJUHqSuTe6qMMqqEO3x8tcIw8BmbPvRR2H3/Gru2hWi50N3r+nvA2oM9UFWgltVe5DAvGfE OR8yCgcaRW5rApgKyG2gRGn41Eh75qmd+kPgUcwXpp zQuIU6ivPaUpy449vz9bXDE3Mk5XDTNbYxSV54UN7t85pw+h+0Vs71KnKr7y6xwzdgPdW4IhQHH7bzW0 j+z+6qidAr/X6Wp0VSDey8Kl3DtcxS9V5xPxhZG+EUnI7Up+M+CqUfhX2eYjbhmplLY8vS9MhbhKD5gB qxncw+keYKHLRSmuluJvqMxVkyhfnDHafxtLnDuuQ9 2hik60W7/Ph+/sLhHhhPw2k0Y9rHMtiAVsEIm9SYmgKM0lP/99kIZnZ+L3JyMNJVLZZ25t77RSBhW9PJ ylMxpzCfrQp0WrpGrsZcIXOoBtGESs1DD0aIz1f+c4Sx2hswD3Ht3uYyXq4SDHslbAjCdv7Kr26emZBG tpDhy98RJEFT7p7RfpX4jdt/p3gIfeXD720SZGMG84 NtLUqNqTg5zUqljkWOI1zSixP+u8X6SN9vrR+qCwZOsy5xb2hZBH2FXOH/C9/hIaLFWSLv+o7ohu4MBI wv6F023b8wosUfsc+ZmlKSUDKOk9s2K5hc1eao+lDrD/xkjNzI/8O7ZHQeHmdwdJX9x82xuJtHmKxLxE jsVcVff2DmJ67Fvt0TzOA22jwnWhe9k11+JdnrYH+7 xKHU7kNquMck8sWQQIFce1Y6s0bP/4ByAt/y2bH+MmJO79tK892dP06QJLcB/sQ66IuzPycgjI65cR39 7POvWzt9HaqEdLh10Ab7q+E0ifzbtpdou0aJ9mgPR2cApXaWfjFqyrPrKKpHLs7w//fjeBG7Pn64Myg/ +kl28Zhvv4RROyc+4hxzURsoB7VXJhwIaXPlrom5/v BIm//4ANBTr2IaRf7OXI7O5mZ09YKwL4skL9OT8PAaxRWjRhKx3Qj4vZJl9xiShxLM6QMjLv8yK/A/vp site Ppwm87D/SO14eRqAkAedpMfYXqt4gZWSVlK4N10/XSkteH0YwqCTJX9MD4uqD7GfmSG5t462u6tXr7wU XxnWuhx+g3U4bttTfvTmf799o2SFD7tQsQ8Nm4BVG8 lvZiDPDQRzUJ13kYMA6ixbbD5aIokZwkaL42odZnKsjXKUF6O/uy0K+7tSXZymtZ68PmT/SQlSTfg1Vh AzFzXzy74bz0g57Cy6gf2FW2naQDIYlq3flGlcgt59T1lgTp/pH7fpG8dRzcEgqHddLWV3zJSIyEaBSA 4nNgpFbaWZpSdr64/vGXeL4r2Dm9AB58mKywB8GObH hOz3r6qYtIg6yC/vWfbFNxSdEl9OaNJyiqpHlv5kTDZzy4cXvnAeU1z9hoO8VFvwyBnSCIcviHp6tO9N J4bja5wP5Hec05FGKGjUPs0gAVqb9r2gAcLvQr4ighf0giacuZnMfle4EX9hrSo0fDPP33l6BWinIu0l UwbwMZhHOVJyp8zzGaKPWH/EetLhUiAojGtus7AVwb 9DxnsCRkw+wpPcVshgg/ILGTXmF+wIkSJcGczOEl2Cm9pIvK1qt4L54bIlqIsLgqMYjmyYyDFpIEW/YV BJGlK7uHiDMBv7vNmOJWD1LhScoETI5KuVPdpEse+mpbL7ag5XSrdCIPvYUQoVncy7U/l3hCElMM9MJ6 lDMpU6HFEPadg+YYVVjaIGJA+HWIIUOvGZQhKOKZ38 [file] ICAgICAgICAgICAgICAgICAgICAgICAgICAgICAgICAgICAgICAgICAgICAgICAgICAgICAgICAgICAg ICAgICAgICAgICAgICAgICANCiAgICAgICAgICAgICAgICAgICAgICAgICAgICAgICAgICAgICAgICAg ICAgICAgICAgICAgICAgICAgICAgICAgICAgICAgIC AgICAgICAgICAgICAgICAgICAgICAgICAgICANCiAgICAgICAgICAgICAgICAgICAgICAgICAgICAgIC AgICAgICAgICAgICAgICAgICAgICAgICAgICAgICAgICAgICAgICAgICAgICAgICAgICAgICAgICAgIC AgICAgICAgICANCiAgICAgICAgICAgICAgICAgICAg ICAgICAgICAgICAgICAgICAgICAgICAgICAgICAgICAgICAgICAgICAgICAgICAgICAgICAgICAgICAg ICAgICAgICAgICAgICAgICAgICANCiAgICAgICAgICAgICAgICAgICAgICAgICAgICAgICAgICAgICAg ICAgICAgICAgICAgICAgICAgICAgICAgICAgICAgIC AgICAgICAgICAgICAgICAgICAgICAgICAgICAgICANCiAgICAgICAgICAgICAgICAgICAgICAgICAgIC AgICAgICAgICAgICAgICAgICAgICAgICAgICAgICAgICAgICAgICAgICAgICAgICAgICAgICAgICAgIC AgICAgICAgICAgICANCiAgICAgICAgICAgICAgICAg ICAgICAgICAgICAgICAgICAgICAgICAgICAgICAgICAgICAgICAgICAgICAgICAgICAgICAgICAgICAg ICAgICAgICAgICAgICAgICAgICAgICANCiAgICAgICAgICAgICAgICAgICAgICAgICAgICAgICAgICAg ICAgICAgICAgICAgICAgICAgICAgICAgICAgICAgIC AgICAgICAgICAgICAgICAgICAgICAgICAgICAgICAgICANCiAgICAgICAgICAgICAgICAgICAgICAgIC AgICAgICAgICAgICAgICAgICAgICAgICAgICAgICAgICAgICAgICAgICAgICAgICAgICAgICAgICAgIC AgICAgICAgICAgICAgICANCiAgICAgICAgICAgICAg ICAgICAgICAgICAgICAgICAgICAgICAgICAgICAgICAgICAgICAgICAgICAgICAgICAgICAgICAgICAg ICAgICAgICAgICAgICAgICAgICAgICAgICANCjw/qSAfH8ihkQTwneE3B0zxOt1XNu6JDU0hp8IwHNDt TDhupfAjLhzJIgOxOWOnPtfUTwt9DQyoGJ3WaFEhC1 SrO9XfSGduFJ4QJQPzAEYeiQImXBFqPVHoLdX9UVVpONdrVB3EtODpYZilICRnBWUoZhWfMAXjIUEaFV LoKGXhWYBTWU7GSxHnW2XdhW93RSHRZn1+KXaifrYrBxuKHjL5YWYah1BeRBz5AS4HBQRrKtyqy2ViBK SaAFLZCXbaOI9PFTF3AKE8MFVfAx7PDVKjH107shVt AI9THm5XDzCpGH1dzg5NUXSvVIBrYhlQJye5KMhnDY9WtGCgFDbVnw9siiYewoROb2BjtoNwvNTTxljj AJ9bN5HflHr6RBBGDLIXGE6zTQHzJBNdTC8qCVGnRUGoIdLfZUWTAX6KSZEuGLSulFJwMZWaXGNTJB2P COxkILC5SnbvwdIgvACySSjoGR6TRNZgkiQrFXBbFQ BSDQo+Mn6YDK9po6ChCXl6RgNlME5ajw2XHKfENuOkR2U8mZQjE5M7RFncGz9ATHKqRRKwJCVfMKLIFM beYK3RJP0gvoW4SM3YeYLsEVEqHOJzjCCsOAa5O91buYAcGUgbWH3VCYB+Mau+Uy5BTIDdPNCtMYRiHe FqTPGNVwQkY6AyR2BCz2MuC8VwHR19yDronqFvQOsy EE7EFM9xNEGuELOGDU6FmSOvkO8wrsV5RVPgBOFOWbLaH57mxGXwRDTzHBJvFWJzEp8JLPTjP0SjrdHt lVbzsyCmHCXyULMOGD3XYLpwkaQifRUzcRneOE16mPmrIE9IGj3DAmGfEL4kur8QvOMtGo9GRJP4Xk9D WWObBVTdVYPhPPA4XNAnSqSrWJjwNTViSIYpDDP7HM FwVBEpVR8VAvRlESLoNVF4CNvkQMIgJLFyuh5IEJBtPLO3UjR2YHDqXNCgDNPiXOibRBUhFTRtMHP0KI RmXYXpJW8TXlAoPFCtSZTaOiPfDPPmJRHlih2PHHRnRHDeWeFwAUNlGPQyZYEzGMxfUSImCYH6NbIfPN KtGJOzOG9RNsFePXExSLB1BOSeKOYcKVFtck6TMUQx TBPfZGo1MNPmCMTwKJCcMHxcQWHkUGJ6WZPuJPLhDASjFC6GUbTfWFLlWRH4SOYiMJZrDYAntm5TFUZh HRQxYCg8ZcDtISFdLQTzDPrqTPAeLSTrJpM7CHQiJARkTD3LOvHbSLOwULJ4CHiyVLRpEOXkcu4DNXXw GHSdPwA7UQRwODSuFYAcHRlnXJKpYRB8NGC4OIVxAT OiOF4TJlXkZMRjOXZbDIMkHBZjQPVcti6YHVAbDWZjTDTpYSSzVXPtREDwARbhBSVdKME5Uwv9WHTpTL PuPL1DClIbWGPoBdqbTWArISIcRORfww4AJNHaLUAaAvQeECShYPTuJAXcLMxtFNYgSQR0YAQ5PASjEV NoWN6QNyNiQCDnVxt5IRTcGGXeJERorc0ATVGfNBOt VAHnVTIcXVBqVWRrSSetVVUcRIO3TDC2UZObUASfIR0PTaTnHOLoVomxNMyzYVGnFHRhhf4JFMFcWPHm UOx8STMhWWMsXGIsSFckYVJwCQReMQP5ROIiQKIdEO9DNcEbVSPvRfEbBDrhIBRxGTZkoj6YJFHfGED8 NjFkNqHdYELlEWBaLIsfRYBjIQSvWKF5WHHmKYAbPG 3YIsEfDGYvZAQqItUvRIOeKKNwxb2PLXUsCZN2MGZsJoYuCXVdKOGbLJfqCFTpEFB5QXOnXYOsNTVeLJ 6GBnWgYEJrLRB3MLChTWOuBEPqjg1EPMAuFDH1XOC0BSWqBPMiBEWmIPyuZGUfXAM4RUA5YKOuXSPaHH 9VVyElEJGkXET7HeLrKEMlWQZaeu4BGDAwIVU8DKTl NLZsNBOxIOKlPKzuVEGkBMTvUoIiDTThZUMbQU8ZRoRnJAQkAMY0TDLoMWIlDVSycd1EXBMrCGE5PUFd RzNaXOWlNPEfIZcxUNEuNAJmMXC2WZCzMTJeUP3ZQkKwRLIeCML0AyZiHZUsTBWcoc2BONQfZDE0NlL0 QbShHGLjZCBuZEuxREGiCELqUan6ZTZuRLGbCM5CQv SgYBohISGQXbm6PCsfZ7s2XMA4Fr9VN9Zpn6VgFZFcPUBXSCasMK9fpqCbBLJuHn5HZ5aDPxrrHGFjD9 V1TRq7ATh5JDx8EeopQKVzISZrVBS1K8YlVR2cIMU2RpNgIBvsBtJ7XOv2ZKEiYgZ7ILM4VBZnYKVcFp McZoFsON0PPj1MMqZ3PPS2eBHsCx0IUDQfHIEQYgNxUD2MFMq= ID Date Data Source [id number] 06/16/2021 05:17:00 PM EST [facility] Name Value Range Interpretation Code Description Data Arabella rce(s) Supporting Document(s) Pre-Albumin 13.9 mg/dl 20.0-40.0 Below low normal [facility] The above 1 analytes were performed by [facility] [address], ,[place] [address] ID Date Data Source [id number] 06/16/2021 06:21:00 AM EST [facility] Name Value Range Interpretation Code Description Data Arabella rce(s) Supporting Document(s) AST 18 IU/L 15-37 Normal (applies to non-numeric resul ts) [facility] Sulfasalazine and sulfapyridine have the potential to falsely depressAspartate Aminotransferase results. Baseline values before medication administration are recommended. ALT 48 IU/L 13-56 Normal (applies to non-numeric resul ts) [facility] Sulfasalazine and sulfapyridine have the potential to falsely depressAlanine Aminotransferase results. Baseline values before medication administration are recommended. Alkaline Phosphatase 61 mIU/ml 50-136 Normal (applies to non-num madiha results) [facility] Total Bilirubin 0.70 mg/dl 0.20-1.00 Normal (applies to non-numeric results) [facility] Blood Urea Nitrogen 6 mg/dl 7-18 Below low normal [facility] Creatinine 0.65 mg/dl 0.51-0.95 Normal (applies to non-numeric resul ts) [facility] N-Acetylcysteine (NAC) and Metamizole em ve the potential to falselydepress Creatinine results. Baseline values before medication adminstration are recommended. Patients undergoing treatment with phenindione will have falselydepressed results. Patients on phenindione therapy should be tested with an alternativeCREA method.Toxic levels of acetaminophen may lead to falsely depressed results forpatient samples. Glomerular Filtration Rate >90.00 mL/min/1.73m2 [facility] GFR Reference Ranges:Normal Function or Mild [...] of Health and the National KidneyFoundation. The Norden method used in calculating this result is traceable to IDMS standards. Glucose 79 mg/dl 70-110 Normal (applies to non-numeric resul ts) [facility] Sulfasalazine has the potential to false ly depress Glucose results. Sulfapyridine has the potential to falsely elevate Glucose results. Baseline values before medication administration are recommended. Calcium 8.1 mg/dl 8.5-10.1 Below low normal [facility] Total Protein 5.4 g/dl 6.4-8.2 Below low normal [facility] Albumin 2.2 g/dl 3.4-5.0 Below low normal [facility] Sodium 138 mEq/L 136-145 Normal (applies to non-numeric resul ts) [facility] Potassium 3.5 mEq/L 3.5-5.1 Normal (applies to non-numeric resul ts) [facility] Chloride 106.0 mEq/L 98.0-107.0 Normal (applies to non-numeric resu lts) [facility] Anion Gap 7.0 [facility] Carbon Dioxide 28.5 mMol/L 21.0-32.0 Normal (applies to non-numeric results) [facility] The above 16 analytes were performed by [facility] [id number], ,[place] [address] ID Date Data Source [id number] 06/16/2021 05:48:00 AM EST [facility] Name Value Range Interpretation Code Description Data Arabella rce(s) Supporting Document(s) WBC 7.02 x1000/ul 4.80-10.00 Normal (applies to non-numeric re sults) [facility] RBC 3.24 x1Mil/ul 4.20-5.40 Below low normal [facility] Hemoglobin 8.9 g/dl 12.0-16.0 Below low normal [facility] Hematocrit 28.4 % 37.0-47.0 Below low normal [facility] MCV 87.7 fL 81.0-99.0 Normal (applies to non-numeric resul ts) [facility] MCH 27.5 pg 27.0-31.0 Normal (applies to non-numeric resul ts) [facility] MCHC 31.3 g/dl 32.2-37.0 Below low normal [facility] RDW 16.1 % 11.5-14.5 Above high normal [facility] Platelet Count 219 x1000/ul 130-400 Normal (applies to non-numeric results) [facility] MPV 10.5 fL 9.4-12.4 Normal (applies to non-numeric resul ts) [facility] Neutrophils 69.6 % 40.0-74.0 Normal (applies to non-numeric resu lts) [facility] Lymphocytes 16.0 % 19.0-48.0 Below low normal [facility] Monocytes 9.7 % 3.4-9.0 Above high normal [facility] Eosinophils 4.1 % 0.0-7.0 Normal (applies to non-numeric resu lts) [facility] Basophils 0.3 % 0.0-2.0 Normal (applies to non-numeric resul ts) [facility] Immature Granulocytes 0.3 % 0.0-0.5 Normal (applies to non-nu meric results) [facility] Nucleated RBCs 0.00 % 0.00-0.20 Normal (applies to non-numeric r esults) [facility] Abs. Neutrophils 4.89 x1000/ul 1.92-8.31 Normal (applies to non-numeric results) [facility] Abs. Lymphocyte 1.12 x1000/ul 1.20-3.70 Below low normal [facility] Abs. Monocytes 0.68 x1000/ul 0.14-0.97 Normal (applies to non-nu meric results) [facility] Abs. Eosinophils 0.29 x1000/ul 0.00-0.76 Normal (applie s to non-numeric results) [facility] Abs. Basophils 0.02 x1000/ul 0.00-0.22 Normal (applies to non-n umeric results) [facility] Abs. Immature Gran. 0.02 x1000/ul 0.00-0.02 Normal (appl ies to non-numeric results) [facility] Abs. Nucleated RBCs 0.00 x1000/ul 0.00-0.02 Normal (appl ies to non-numeric results) [facility] The above 24 analytes were performed by [facility] [id number], ,[place] [address] ID Date Data Source [id number] 06/16/2021 04:17:40 AM EST [facility] Name Value Range Interpretation Code Description Data Arabella rce(s) Supporting Document(s) Nursing Note [facility] UOTHUq8jSlQDJfRd00/GYEamLARhk6OoIMewRMo6DEdcNTXtF9ZuWHJ4oG9kJAB7RNwATlZsXiLsXBW9 [facility] [file] P7Ssj8EDS6C4T6YGB5Lh4bIAYNGj9+INzwpJLezXzlZEJFQov1ZlURJoLaZH3WCJy= ID Date Data Source [id number] 06/16/2021 04:14:00 AM EST [facility] Name Value Range Interpretation Code Description Data Arabella rce(s) Supporting Document(s) Care Plan [facility] MLGUKm6zWdFXIpFs02/CYItqECHkq4DlFPmeCRl9AEpnQBCyY6HgTYY5aK8kAPB6VUuJVmWkWyEwOLP3 lbm [file] Rg0K ID Date Data Source [id number] 06/15/2021 11:18:40 PM EST [facility] Name Value Range Interpretation Code Description Data Arabella rce(s) Supporting Document(s) Progress Notes [facility] QEFGMb6rTrDSAmCz94/KPZszZNBed6SlCCyuLGa5CIwsWZSfP9RnRYP3iI0yREF2BOoXGdCyOmLcLKI0 lbm [file] 5FpcHlECWXZnS6kmCvPcCjUXZZCZI2eng0JSdl+[facility] [file] 0TOoC4ATV4rPRiXa6RNnXbAyePKnQjYO4TLSy= ID Date Data Source [id number] 06/15/2021 08:06:52 PM EST [facility] Name Value Range Interpretation Code Description Data Arabella rce(s) Supporting Document(s) Care Plan [facility] EVEHKr9pZdFTOpMg80/RVAheGWWjw3TwAWagIPb0MXvjJYNgV5KiUBU9xK5qAYD3AFjFJbAaVbAeINJ8 lbm [file] G4UfC1VW9jDUGKJp1+SMztcJZutXumCHWBXhFfBZW6IWpeANDBKz4X ID Date Data Source [id number] 06/15/2021 02:50:21 PM EST [facility] Name Value Range Interpretation Code Description Data Arabella rce(s) Supporting Document(s) Nursing Note [facility] GWGQOo0nFnBCBvOv91/OTYgkRHPov0DiAXtpAEg5TLjiIRZlM7NfAYD1hH2qMNC4QIjDFyYoKfRuCVU7 lbm [file] EyEyWNp9PDsiZYXCDr6E ID Date Data Source [id number] 06/15/2021 09:34:41 AM EST [facility] Name Value Range Interpretation Code Description Data Arabella rce(s) Supporting Document(s) Progress Notes [facility] EOLJXg8vTlKLSkQt47/USUyzNUSpc3HvTFwqPDa3CZtfQFUlO6LgDLD8iT6cIEG0HDeVLfBjUlYrBGG3 lbm DwMrzVQmNoDCQgZwiXCpNxSJwlCvpsmWVwSX1XhSQ0IAOkN06cWLQnIOHtA5PyXCZ5ToO+Ml2OLFHrlM KoBH5BExfW6F8mw9v4ML/kRW7Qtb6MJQLPY2X/6xuo0lUGWJaW6v8BOdBS4nZh6KxmK8YllW7PA2Rjn9 HNNGtoIu9enpP7fogzMUVJshe989qDKhFVTh04doqV Mfbn5Y5SM+NUicup+AGviOhIy4uO7z/RIPCAkomMzQPVT9+7+0OM1rlhPC/iH0QVfCnrTkn2adDZBpye 8pn5Th996BkfnoYZNafb5DOyap6ZyeRWMEpEidObIdFqm83MXyNOw9hyx6AfA+Z2tvOcbq1eRqpSCtW3 fNSXCEmRumbj5FpNYOZKYBzHoAHNEHrKfUAh87FPZ5 [file] OjZ1UHPyCbXbCJFkPSA0NlFfCT9QUx9GVuP8XTO5sUIvGq5WCFRdMLgOBmSvJC7KOTx= ID Date Data Source [id number] 06/15/2021 05:10:46 AM EST [facility] Name Value Range Interpretation Code Description Data Arabella rce(s) Supporting Document(s) Nursing Note [facility] ELUQMw3aZiTJQgCh11/JPVagXJUiz7NnHMfiBFd5PLkvZKLpS7PhFOT2yC9tSOQ3ZTbKJtGgOeBmEOG0 lbm DbDweQTrHyWBPxIerNCbDoTOpbPkmbySZnNB5AmMG2GTFyY85mJDWyWVGuQ3MpFGFcKrQ+Xv1CSBZyuQ NbYK4UWgbY2PauN+NGEH+c4K7wTouFZ4tN5v5jNNN1msf3mNLvVvK78JXLjQ8YKS9S+jzWkg0eeYp5dN PHTsCPh82z14jRixJvqu4OpEaOLND/mj1LxsN5Em3/ JN3xxHBz5NPeRdrFdMJ6EnCbML/uDKuzidYlaUkL7OI6ZrnHwURZgQ8ft4qnXf31hA+lauQrK/YDeDOE 1x6FEopG6Dchn9faGL2AcCv3rnF7j/IQTRdPWy7lVLX2sEFOtfvyBPRb1hFUnMBqxCNU8hq50izBLVCt PskWacm3aC2ctpqKXB3grxPxDUkdFBRmJVjExSGK9G 4mvwkXUf82Q3qizUiTsrvCQpiwgo5LiO75FplgGbgSXYzFbE92uWBajZLbJUIoG0WgI3hUaoN4cnkHAh +tyffD/nqENoKhXPJ5XzG3TACetUS6uXZpjqo1BXCZRwEQ8DaiHWs7hqtmKyT5GotnO/rOhIxm9fcH+S Jx6ppsuBi/OfPkqD8Vc+UdUjAD4XV40WaoDpPg8Xse X+PFPJRUOP/3rEEpCpNZoe3Y68y0CwiAb5/D8Oz5/GwQ5OL5YTl4p/dIwRMDddI5wLfSM9zmsEcXt5nV /AUnX8Ry6P/FNB/2vk9NkK39NL/FjVRPDsFfGhPvC98pdod90M8noet86HTg5Lq0pdzzhQo7M9z41Tir Dl8KY6HvST7++kr6DFbCl7u+j5YrTJdAM6sm+fglyk 1VkDXi+0VQ2gjoUXg61zSuRf014RO+vToIPwKlWo/F17amLHH3AECERCnZPxTX3wZy3yGdiBBiVEvfGV uq53Mudj2Q0H9E2f5rMRI/wwmYHgpj9b+ennYWQYQdzW06PgqXkowoUNsCcHJoBEb9qXL9lhUduT6Bzr je7BLTNedBoYW50EPFPTYJFFJ+UVxLZHNd6J3G35h1 [file] ixdVgfgiG4dwKhGSbP2WTHYwwJfThnIyBWFRx68XedDeXKPTOnR0asFjQqRcRYFVUKN6oos8AUnb+José Miguel [file] cOFiNr3ATfEyAkcPTaRsFL3WMDj= ID Date Data Source [id number] 06/14/2021 11:04:53 PM EDT [facility] Name Value Range Interpretation Code Description Data Arabella rce(s) Supporting Document(s) Care Plan [facility] ZORFIu2pLtEHCzOq45/HXWtnLZKtu1AzVDzxWSp5CRgkXIZgI7LwXQF4yG9tEST4MGyGXeMeDhMwQRZ5 lbm [file] MTgwOCAwMDAwMCBuDQowMDAwMDIyMjQxIDAwMDAwIG 5MHuIxXRYvVkT7FKVoBDGkBVRqcs4KGFIiDCDaXul8WiQrRUFsVOWhKOniQLAvNNDgYMCdPNOuKWCbEO 0TWxEjGWuzUMQBNgh1YZzfL6d2XRHvMD8VM8Pxl6QbAelpQLNNIIhrVH7iptHrRCVvIv8OD4hMTorsUH WbLaX6HPCqNUNmUvZ8FAzlHxNdRNV9FjNgPqWdVJ7m XEHoRTZzOnRvRJTjO8CmXZfeFIYqSGV5Hah0QlIzVqXyDdFsHV6ZSa2DJuZ4SVQ8fRDzRs9UMtGgBYKR RhJpJO2DOOf= ID Date Data Source [id number] 06/14/2021 07:02:22 PM EDT [facility] Name Value Range Interpretation Code Description Data Arabella rce(s) Supporting Document(s) Nursing Note [facility] JJVMEy0nVoSGWiQx76/TCZhpSURqh2DmWUmlLVs1KZkpDYTqB2BaHOH3zQ4sEDG9QQfTGsIcLsHgTAK0 lbm [file] WZJsChMD1WDFk= ID Date Data Source [id number] 06/14/2021 01:09:13 PM EDT [facility] Name Value Range Interpretation Code Description Data Arabella rce(s) Supporting Document(s) Care Plan [facility] BKYNEu9dMrHCEzMq62/BQOmfMJZui8UdKIekQGb2OLxyFRVnV4LvJBT5sR0pBPJ0BYcFWxAvLoMzIFA6 lbm [file] health companion+5JaPCpmUKIqO8iOSv0+33/1UQIfjGGAsp6T794 [file] ICAgICAgICAgICAgICAgICAgICAgICAgICAgICAgIC AgICAgICAgICAgICAgICAgICAgICAgICAgICAgICAgICAgICANCiAgICAgICAgICAgICAgICAgICAgIC AgICAgICAgICAgICAgICAgICAgICAgICAgICAgICAgICAgICAgICAgICAgICAgICAgICAgICAgICAgIC AgICAgICAgICAgICAgICAgICANCiAgICAgICAgICAg ICAgICAgICAgICAgICAgICAgICAgICAgICAgICAgICAgICAgICAgICAgICAgICAgICAgICAgICAgICAg ICAgICAgICAgICAgICAgICAgICAgICAgICAgICANCiAgICAgICAgICAgICAgICAgICAgICAgICAgICAg ICAgICAgICAgICAgICAgICAgICAgICAgICAgICAgIC AgICAgICAgICAgICAgICAgICAgICAgICAgICAgICAgICAgICAgICANCiAgICAgICAgICAgICAgICAgIC AgICAgICAgICAgICAgICAgICAgICAgICAgICAgICAgICAgICAgICAgICAgICAgICAgICAgICAgICAgIC AgICAgICAgICAgICAgICAgICAgICANCiAgICAgICAg ICAgICAgICAgICAgICAgICAgICAgICAgICAgICAgICAgICAgICAgICAgICAgICAgICAgICAgICAgICAg ICAgICAgICAgICAgICAgICAgICAgICAgICAgICAgICANCiAgICAgICAgICAgICAgICAgICAgICAgICAg ICAgICAgICAgICAgICAgICAgICAgICAgICAgICAgIC AgICAgICAgICAgICAgICAgICAgICAgICAgICAgICAgICAgICAgICAgICANCiAgICAgICAgICAgICAgIC AgICAgICAgICAgICAgICAgICAgICAgICAgICAgICAgICAgICAgICAgICAgICAgICAgICAgICAgICAgIC AgICAgICAgICAgICAgICAgICAgICAgICANCiAgICAg ICAgICAgICAgICAgICAgICAgICAgICAgICAgICAgICAgICAgICAgICAgICAgICAgICAgICAgICAgICAg ICAgICAgICAgICAgICAgICAgICAgICAgICAgICAgICAgICANCiAgICAgICAgICAgICAgICAgICAgICAg ICAgICAgICAgICAgICAgICAgICAgICAgICAgICAgIC AgICAgICAgICAgICAgICAgICAgICAgICAgICAgICAgICAgICAgICAgICAgICANCjw/tVVmT9iucRBkge T7J7nrWe5QEf6YEI2qj0UbFQYsBRjnteLlXypNNhCqVVYkAygYHni7IDrmBY0WiKVfC3LzK4AzGUhnME 6RXJZrEYSxjFErXHDrQMRvYuO8HNYrPYypAN3BvJIt REslTTGbICRiJbJdENHfCL7IOPLsG779ynEgLw3KBj3QJdWzOJ8fsg5EXfanBGPqQbvBXis9EMrhLV1X xCOutXHmRVDjDFLULfZrD1omb8LuNldnMVLKQBkwQA1Jq0FtqBKiFYg+Qa9ALR8wc8WfAPgnYWXxZH9n gu5RLQhIGjCsV3TsjGeuHNDripVgVVvsrmHvpSQImS LjB9bxJYF5wKOdPEMKDWP0ZOVaGmWcDlVkBILuOVrhTVXVVYlCJwKkO5Zae9PpGuU7LCFnDsEvYWcgSC OlKlU9HP59wSqvLS3FNAJqNTQeCM09CHI2KFYdOp1QYo0RPiTuXD0dth7LLnojQDJwKrpWGtc7RQtpTG 8CkITaT6EiuEOpk3hYBwHaW6GLLJV9HJFkNh6NPQRm VoPsJPDdMLjwOF5xMMVyUTLXtPnyqrP6OA7VMS8ncvQoFL0EQaHhSs4gQn0LFqSbP1NmU6FvEOFtHLTJ SObtBD4ENUvsGV3rQD6Xu4CXcDYikD5jpg4LXZGkOWPdEvuyjt3YGasnM9G4qOpaKVIrGkbuFATNKUpw WT6IRMKrEMT8JWRnVpRjQKWCYzKlW70bKK3KR1Zqn9 6eGeS8RVVdHnPvNLcgQR89sVjuwxMocQRuvVqxEV9WJx0+DQplbmRvYmoNCnhyZWYNCjAgMzANCjAwMD FoNNOjWQFpGkA9MlBzTs6IOLEwYGYuNVNvQgJfVLHnUIHuDBdzCFYaBTEvTRClRPAjMRTsEY6VJpTeIT CfMgV4TtQuUISsUGCizu9FIHVmFUCnXGC1ZmAqTJLh MSVqVYgcNMCaILAcSUQrFPZxTHVgDX1OYbApAFTsNSGwZTGfKGIvFYHfon7VDKBzNPIzMjVpVEOfBTKn BRKvOUhlEIPvEACvQqP6VKYnZTBnNQ6LLrBzKPBgRVJrBPOqADGhACThbq9XLAKnALAwMVE3TwLrASLb PBRjXJwjZVLiJZF1BZtuKCBuYONnMO7MZnNyJYMoNU J7VvSwECZgHBUrwr1SVOTuHFXbXPmqTLYgIAZcLHNdICdvGIUnLOA7BFAfRVElDKMdAF6QJgKpZMYvVI hpNqYbNRZlRTEfdm3AWFMvNYOhRNP3TXJkZQTrOSUrNQvlSYRvJVA5Iox6INHkFSRbLN2MAaJvJUSuXP dhVxxeZUTmCUGsth8DOCAzGEIeXCB7FeTuZSBfBNKa LWrrKYWpKHYaBTS0UVAiTFRuLP4ELhAeJHJuJxKwTMAqEWZwXZQiyk2PUXWuMOWqKHD7FZYuPUGsZHEf PPdwPAGyICUjTAOgFXWnQHImVW5TPfLnYVDpHqG9JhYaEIWfSLIjux9JHVRmPJAdNZk0YEEcTKWwNOPq JNclRCUaJNWdNaPpQAUbNJYlWB2VVeVoYYAzWnY0Fr VeQVZvTMOese8KFFOkSLGwYdi3GmAmYNAlLAEbTPccSXYmJEUbZUv5HTRiLRReEG0KCiBnZKeuHVHDKc l9FHxrV4g1CVXmBH9QN4Ryt2VaEkzpMKFTAOibCC7ssqGtQHSxPl2XY7nALtt0BVIpIFQgJzZjIKTnBN NpUsNxSkHfNVTtB1D3UWv9XE7eCXBiIvZwJPMpHBCk OZVtKdJmVXJ7EOYxLsIuJPTzQqG1OxIqPW4YEo0AUyT3UGR3xYNrVa8PReIxZcFTIcJcPB4MNWc= ID Date Data Source [id number] 06/14/2021 10:40:29 AM EDT [facility] Name Value Range Interpretation Code Description Data Arabella rce(s) Supporting Document(s) Progress Notes [facility] GDQLYn4kOxKAWuDv85/QZPqlTPVmg4DeAMmiODa9RZbzFICwO0UfRJU9gG3fHAD9KQhBYrMmQjCoQVH2 lbm [file] H7SJ9zWTJUIf4+MFzgmOHxrVjoTGUQQaP9XxF5QUwlXESXSq4Z ID Date Data Source [id number] 06/14/2021 06:08:51 AM EDT [facility] Name Value Range Interpretation Code Description Data Arabella rce(s) Supporting Document(s) Nursing Note [facility] AKUFOn3sQvSJHfQh37/FDBuiLZKwr6NpNLniYEi9JWevNECeS3QvMVU0oX4vPMJ4XUdMLfAvJjWxISS6 lbm [file] Yd7VYhS6XffRXnQdBL6IYPu= ID Date Data Source [id number] 06/14/2021 05:18:23 AM EDT [facility] Name Value Range Interpretation Code Description Data Arabella rce(s) Supporting Document(s) Care Plan [facility] NMJOBa1qFfYJXhPe23/UOVoeQVOvp8JjBOkzRRu9XBmrKXRtD1MjQAI8nJ4uVTG4UOeFAkVxJqIbENS3 lbm [file] AgICAgICAgICAgICAgICAgICAgICAgICAgICAgICAg ICAgICAgICAgICAgICAgICAgICAgICAgICAgICAgICAgICAgICAgICAgICAgICAgICAgICAgICAgICAg ICANCiAgICAgICAgICAgICAgICAgICAgICAgICAgICAgICAgICAgICAgICAgICAgICAgICAgICAgICAg ICAgICAgICAgICAgICAgICAgICAgICAgICAgICAgIC AgICAgICAgICAgICANCiAgICAgICAgICAgICAgICAgICAgICAgICAgICAgICAgICAgICAgICAgICAgIC AgICAgICAgICAgICAgICAgICAgICAgICAgICAgICAgICAgICAgICAgICAgICAgICAgICAgICANCiAgIC AgICAgICAgICAgICAgICAgICAgICAgICAgICAgICAg ICAgICAgICAgICAgICAgICAgICAgICAgICAgICAgICAgICAgICAgICAgICAgICAgICAgICAgICAgICAg ICAgICANCiAgICAgICAgICAgICAgICAgICAgICAgICAgICAgICAgICAgICAgICAgICAgICAgICAgICAg ICAgICAgICAgICAgICAgICAgICAgICAgICAgICAgIC AgICAgICAgICAgICAgICANCiAgICAgICAgICAgICAgICAgICAgICAgICAgICAgICAgICAgICAgICAgIC AgICAgICAgICAgICAgICAgICAgICAgICAgICAgICAgICAgICAgICAgICAgICAgICAgICAgICAgICANCi AgICAgICAgICAgICAgICAgICAgICAgICAgICAgICAg ICAgICAgICAgICAgICAgICAgICAgICAgICAgICAgICAgICAgICAgICAgICAgICAgICAgICAgICAgICAg ICAgICAgICANCiAgICAgICAgICAgICAgICAgICAgICAgICAgICAgICAgICAgICAgICAgICAgICAgICAg ICAgICAgICAgICAgICAgICAgICAgICAgICAgICAgIC AgICAgICAgICAgICAgICAgICANCiAgICAgICAgICAgICAgICAgICAgICAgICAgICAgICAgICAgICAgIC AgICAgICAgICAgICAgICAgICAgICAgICAgICAgICAgICAgICAgICAgICAgICAgICAgICAgICAgICAgIC ANCiAgICAgICAgICAgICAgICAgICAgICAgICAgICAg ICAgICAgICAgICAgICAgICAgICAgICAgICAgICAgICAgICAgICAgICAgICAgICAgICAgICAgICAgICAg ICAgICAgICAgICANCjw/hKDoF1obwHKcbnF7C0gcBx5AWp1EPF7rd1DrJCRaFJeineZqHnoCCqFqCBIq UmuLEhn2DKhhPI5UsZOqC6SzM7WbJDrwXZ8XRHKqWI RixBIwTOZtJZLpUaE3EQPoPVzcVW4MvJYmICeePGMpMNKpOgIxEPJmWK0TUMYgI392vuYlBv0YEv4HOq KkEZ3lrd2AYcAiRHLvAyvYJky1SSbuAZ5KzQMuqABtBxFxGQASUgJaI2izh7HtYlIyXVXKZIfzJO5Jp4 VudCAxDQo+Rd1IBN8bi0YdZQmyOzUaCS8ggm2VIFbA JgDeA0MdpKtnYBYdlzCoWFdzjiXelUYAbIDoyFBnFqQjy5VkKIBzGRGBEBD8CKUtRwXyJoXiZSTmEZbc TRVYOLhDIxZxW0Nzp0FgYgV2NQWwXrQjXJydZAAsVfR1EV09eBvpDC9FBUDzRTHsON06GDXcXINsBc5O Ws8LNtRzLR4jjr4ZIzDnAYLnNwnKYei9CWbuIL2PoT JaP5PpjYZul1uSHlRuQ2DRDYVcWTBbOo0KMTAyKlSvGFVzARjoPX5tETCbTTEZmStltdM1EU7NUP8guc UbLC5OLsTaOm1pUr4WLrRxN0AxQ4YtBNAtZSPOJItvEL3AMCmpGS3kMS8My4AIjTQjqF7aoh8IHRDpAW RmQcaeom0JQfmcB7X3aMwnYZChQbWwZSOSUWdfFS1Z ZNLvJYS7HMTwAFIeBFUEVmZrP98kFN9KI4Xwn65bJuB8URDfXyQhQMsqHN29eQnkmiIugMDscKgiSW9O Cj4+CAmoeqDsOvbEMqhqBASSKcFgPwKORvSeQNViSEMdKBZfTxJ5XoPgFz9LEVOxDIFlQMGbYqHeDUWd TEMaIYgtQLLhLYImOSPlTTXrUSZqDM9EUxRbLKIhJK N7UggrOIFvREFgqb9MZALoXFXqBQA6YrEgGMDvJTGsQTegHLCjHNYzMWioUQKoYPDrWB5FWnYoNVHqWZ S4WRLaWNVfVPLjin9XEWYnLIOlWfTyRAOxUJFbFSLgGGynFYViNFBgBHN6TSAdFUGjMH7HWxXuFYYsVR X8DEsqCGMlUQRcvu8VSKUsNGKoPSz9RXBuXEZcAGFm PJvjHETqGGM0GJn9ELOdDQLvLG5RBiUhFFGkTYCzRVTuGGHuLSEkcz7FXYIuYAEsQcT0LFIaIDHeIAZh OZonKZRhXQH0OSB9MLPfEAXwJP2CNiFsMFVuGQt9OuKgUCCcONUzwc3WXPMuMDFxETT0NEOpFRJtJWJb FCilQDNcSXK9Ntl4WEXiDEIjFB2CToRyAIMrUBk2Xq emYGHpLGBxst3XEEVhWVYdZLk1PORpEVIvNYTlORuyXISaWWTvXvE5KKFzMHZrOV6NXvLtFMVbNvP9Kh KuIHKvPWUapc9ZQNJvZTIfUDZsBDTyBOQoUQDzWBghXSQgNJWuNIRjBUHlSTQqQH7ZCbPhOOBuBtKuZy bpOOItMVSykp2GGNAeTYLaLqDuSFZcUBOhTPLtIIss YEPyEDC4VCnuGEGiAAWhLT8MKlRcQOZiTarqItFkJBGkAWRsbl0HCVSjCSHrAPKcZbGpDUWeBYNhEQlg CBZiBQD5AZffCQYnSZAiZW7VQjZbTFHzPRZcUZPoJEGmVANlac2HITSzCLL1PIV3GLTdBLXpARYzCVwp TEOkAOShUPAhLTTqQAPjAW5MWtZxAJXiNDOjAGUwPD LmXOQnuc3AFUWgQFJ8UjS5FRUiDIPhPSYdRNw0saUqdZYiHCx9JU4GJ2VwfnZqAjPGCs5Oh202MCN3UH ThNt4WV6jsHw0xSSQcSGLQCa9XOMb9CkFmYev5OAVjHWXfNGBsAwLaCDwbDoUyUIXvAgYmTqZ+IDwyMD SnSIK9YMP2JQPeSUCwSMAwKLRkNwY6YHYmLaHpZx1f XSANCj4+XPmmyKNtsCpsVOHFPhNtGDgpKNoeYRPOMx2I ID Date Data Source [id number] 06/13/2021 07:23:07 PM EDT [facility] Name Value Range Interpretation Code Description Data Arabella rce(s) Supporting Document(s) Anesthesia Postprocedure Evaluation [facility] AKWVWg0wFfXRKyYm11/EJXjiBDOdh9NuLWmxVHs6VKzqRVSmA9BoZIU6uV2cQWO2YTaUMnHbIfZwKFL5 lbm [file] F4AO2tXNQPBh2+YAwpcIJrsPcrIAEQSzGzZdYxFImjLYDGRv8D ID Date Data Source [id number] 06/13/2021 07:16:51 PM EDT [facility] Name Value Range Interpretation Code Description Data Arabella rce(s) Supporting Document(s) Nursing Note [facility] BQNHZi8oReDOLjEl58/AVKkwQQFui5CpWLxsXOy2NChgOHJeE2LcUJT7xB1aIOH1VTqCFtFzSlZmZNR4 lbm [file] OLB8OsTyFCx0Qgz7ETR5PBZ+QK2yVVa+Xn1El2MmjuQ4woHpYEliENG1NE9SIYHCV9EJSv== ID Date Data Source [id number] 06/14/2021 04:48:00 AM EDT [facility] Name Value Range Interpretation Code Description Data Arabella rce(s) Supporting Document(s) Amphetamines, Urine Negative Negative Normal (applies to non-nume ny results) [facility] Barbituates, Urine Negative Negative Normal (applies to non-numer ic results) [facility] Benzodiazepines, Urine Negative Negative Normal (a pplies to non-numeric results) [facility] Cannabanoids, Urine Negative Negative Normal (applies to non-nume ny results) [facility] Cocaine, Urine Negative Negative Normal (applies to non-numeric r esults) [facility] Opiates, Urine Positive Negative Abnormal (applies to non-numeric results) [facility] PCP, Urine Negative Negative Normal (applies to non-numeric resul ts) [facility] Methadone, Urine Negative Negative Normal (applies to non-numeric results) [facility] DrugMinimum Detection Threshold (Conc.)A [id number] ng/mLBarbiturates 200 ng/mLBenzodiazepines 200 ng/mLCannabinoids 50 ng/mLCocaine Metabolites 300 ng/mLOpiates 300 ng/mLPhencyclidine (PCP) 25 ng/mLMethadone 300 ng/mLOxycodone 100 ng/mLNOTE: Phentermine may interfere with the amphetamine analysis.NOTE: This urine drug analysis is a screening procedure. Presumptivepositive results are unconfirmed.[facility] recommend submitting positive specimens to areference laboratory for confirmation. Oxycodone, Urine Positive Negative Abnormal (applies to non-numer ic results) [facility] The above 9 analytes were performed by [facility] [id number], ,[place] [address] ID Date Data Source [id number] 06/13/2021 03:43:30 PM EDT [facility] Name Value Range Interpretation Code Description Data Arabella rce(s) Supporting Document(s) Op Note [facility] NRRLMs4cKkOPNyQc41/LNSyfPLZho3EjPSbxVUg3YMhvCHKuY5NsMFN5tQ4rPDJ7RRvFJcNmSsBmSSE6 lbm [file] HlZqUeJgGuSoCM2SSn8FSfV4QGO3oAQgQh9PTmy2QXDKWkDmVD8TYSv= ID Date Data Source [id number] 06/13/2021 03:37:22 PM EDT [facility] Name Value Range Interpretation Code Description Data Arabella rce(s) Supporting Document(s) Perioperative Nursing Note [facility] OMUIVe5bVeTNGcZe53/AHGaqUAAcy5FvMYutUAc0DWajAFUmD6ZbTMH7jW8jTIG3HXjWOqXvIqBsUWK9 lbm [file] GPgkRBL4MNWiQRB+LJ1yDIj+Tq9Bf5GfmkW7khEuGXuqVTt8CC2YSZLUU3GDUd== ID Date Data Source [id number] 06/13/2021 03:31:09 PM EDT [facility] Name Value Range Interpretation Code Description Data Arabella rce(s) Supporting Document(s) Perioperative Nursing Note [facility] NJKTZn6rVrQNQfMk17/YJXlpZDRas2YuDPhaITo4YVamQBIrK6OeFCI0jJ7fOBW2CCmESzSnWtSgQDM8 lbm [file] TgR2WoqkTNFjPxeaBUM+YF7dAVg+Qr7Wp9XatwO0upXmUMhoHJk0Iw2YYESDZ5DHVv== ID Date Data Source [id number] 06/13/2021 02:59:29 PM EDT [facility] Name Value Range Interpretation Code Description Data Arabella rce(s) Supporting Document(s) Progress Notes [facility] MQPGRh5hAqPVYqLe82/OYKftUCUbk5NhEVqtMTo2IQixNJYwT7IiTDV9uJ6bGHC3BIyTUqKfIyShCCH5 lbm CnDecAMoTwVCZlAiqGRoTjSCvtBxadkLElDB6VcUS7HNZxS21dJLQfEBXjT9DfZZMyOCB+Uu9YXBEckE PsDR8UZrwX1ZcsowR3XV5aOB+Dpi/CJBEM6tGrRr01mk6LKXmhgvkk2KAMm7RolvD64ZTNm56pyV6D7o gdsH5E6JDnWT43LMzwtkw/vROHqZFSivX/zcc01+Ji Kh27YtgBGCuqgEwDDZVdyYaeTk0wE4wi3o3AyYYem/7amjXXZqNYqtwQXTASt7LmKFVau+db5WfDH/B1 XyfinP7GV7+vCAUzWx1Smdr0l+rEb00HaKuN3q7fu4Vwd6GLVTBzr0sdqWd0aE9Hbs9Iy1YU8ee2sVQ3 tMrTjarmsE1b9dQc7QJ5jiAF3cVZpdyXSkjljfC4hA 5RDmWpotLrFWMFqglUSstYgLzNZBymIywuLSwRKPcc5USBp9WdnlEFRnFOJ8oMIJ7e8gWTMYHYj39suC 4W4IhTHJ7jrMvD7QnNu0muxF/XHm/Nd1DydAyAj0wbaJgZyopwdFhznhQyDKRshrNq1G8oAa6W63Y6Z/ KLDHur6NuyWPBR83sARASI7kZfULbFxwH4BHAQaaQL [file] L5SORiKcVdKGXfKyr+FG0pFTr+Ya5Jd8AbudY8ybBbBJfgWlSrMi6NYILHZ9RGZy== ID Date Data Source [id number] 06/13/2021 12:41:00 PM EDT [facility] Name Value Range Interpretation Code Description Data Arabella rce(s) Supporting Document(s) Care Plan [facility] PGCGWl9xFyCGPeKq22/DKQanSXEyl4BlAMdoODd2CJdkGBFjA0IqLNT5rT4oYCN3KMeLXgEmYgUsWWD4 lbm [file] health [facility]+2TqEFroVNTmY8xHQx5+33/6PPVxcFSPof5C436 [file] ICAgICAgICAgICAgICAgICAgICAgICAgICAgICAgIC AgICAgICAgICAgICAgICAgICAgICAgICAgICAgICAgICAgICANCiAgICAgICAgICAgICAgICAgICAgIC AgICAgICAgICAgICAgICAgICAgICAgICAgICAgICAgICAgICAgICAgICAgICAgICAgICAgICAgICAgIC AgICAgICAgICAgICAgICAgICANCiAgICAgICAgICAg ICAgICAgICAgICAgICAgICAgICAgICAgICAgICAgICAgICAgICAgICAgICAgICAgICAgICAgICAgICAg ICAgICAgICAgICAgICAgICAgICAgICAgICAgICANCiAgICAgICAgICAgICAgICAgICAgICAgICAgICAg ICAgICAgICAgICAgICAgICAgICAgICAgICAgICAgIC AgICAgICAgICAgICAgICAgICAgICAgICAgICAgICAgICAgICAgICANCiAgICAgICAgICAgICAgICAgIC AgICAgICAgICAgICAgICAgICAgICAgICAgICAgICAgICAgICAgICAgICAgICAgICAgICAgICAgICAgIC AgICAgICAgICAgICAgICAgICAgICANCiAgICAgICAg ICAgICAgICAgICAgICAgICAgICAgICAgICAgICAgICAgICAgICAgICAgICAgICAgICAgICAgICAgICAg ICAgICAgICAgICAgICAgICAgICAgICAgICAgICAgICANCiAgICAgICAgICAgICAgICAgICAgICAgICAg ICAgICAgICAgICAgICAgICAgICAgICAgICAgICAgIC AgICAgICAgICAgICAgICAgICAgICAgICAgICAgICAgICAgICAgICAgICANCiAgICAgICAgICAgICAgIC AgICAgICAgICAgICAgICAgICAgICAgICAgICAgICAgICAgICAgICAgICAgICAgICAgICAgICAgICAgIC AgICAgICAgICAgICAgICAgICAgICAgICANCiAgICAg ICAgICAgICAgICAgICAgICAgICAgICAgICAgICAgICAgICAgICAgICAgICAgICAgICAgICAgICAgICAg ICAgICAgICAgICAgICAgICAgICAgICAgICAgICAgICAgICANCiAgICAgICAgICAgICAgICAgICAgICAg ICAgICAgICAgICAgICAgICAgICAgICAgICAgICAgIC AgICAgICAgICAgICAgICAgICAgICAgICAgICAgICAgICAgICAgICAgICAgICANCjw/gPYiP5gxxPUjfb X1U1diAu2APx3GOG0ml9KkXVBqPOmqchTmHcmRYjHyTKCjPwzHDcl8SZtdHT4UjUItE2ScQ7LmJWqwBT 3CKOOlRJBabTLfKXExMGVwAkZ5WCArYXjzDS8UfBGz VFzuKZGiYGSuBrLpEJWxUG9QDNRtX864yiVfOd7GAv2SRxLjVH7mhd5EHbtgLHOzNlxKGhy8JTcmHQ0A iEEpuYFjCVOlHJCIEjPzV7jbd9VgXujqXEUNCDjuYE1Yh6LvaMZoSBv+Dh4IEX9di6CiSPgvGFIfSM6d wc6XTPdDHkDiI8UlqQxiGXKqpfWgJQakktQurJYGNE ZnKAUwq02epfroUp0fIGNmRMTtPA2sGMNbOOPuArMkEGTMNC2TFTPyZJWznIFbALOnXHKIGF0XYPwdIM F0ZgfzmnSkcNSpHXohIC5WTNIpazPbSefmYICJRFw+Ph0RKT9gt3AfSKjvPINhON7tqo3HGIiQMjXiQ1 N7rRAcG8C5CImpFr3QFZGpEQAoUiQaKDAVDEjqQP1M LP1xquA5VD1WhAPuYXHqWZPpgMVePKs3T32lnTZgXVyxXN9LGFN+Mau+Cd0YXDPcALRkMOAhOoOaBVLV RbZgL7TlL6IBj1HeV0PpSY85nZirdyTgQSvlXV9ZSG6ePLWjKGVWJF7RvNCrwP2ehtRuEmAoZFIYRpHr R78qyQTiYRHgUFE7CAQgJh5HXZPnP2RyirFlwBfahz MdMMVsBCKFPX2SPTfxkwAebPSdcQabPH14lSsuPL1FLc9YYwBjUA0mgu5XcCSnKv2ZMREpQD6FOZPfYE JgVSPbBCX6PRLwDvBdJRooPFUbTLWfURQ0DMFjQQXqDL2LNkBaKRYcHiI3FfOjOZXfAGZqre5WGVRkHM PtLfR3PnNzFRPyUPVpRBglVGZaBKVtXVL5JWQjSAOx SW3UDvCnBMHxUVBlDTKgRISoCFDodx2WZIIePXQoKoQ9TmUzCNNhCCCgKFrdAZPtZGSeCCE4MCHhPMRz WI6AOcSmGQDcPDQdLmsiJNXbCAReyi3FJNQqWWAgJET5QsIyJEYkTPRcKBveZKXnHQX6Gop3ZUUgGGAo IS9UGmHjHQEfVJU6LtKcGPSlIJQdng7USJVlEQQhLW HvMtXcIMMbDTQxMDsvEWUkGMQ9QoIpDAOiCKKdYV0ABeAdODNuYGE7KAZwANIdIHItpc8MFQKmOMLuPS A6IiJkTCDyGNYpZNezHOCwSMC3WZa2DFNyBWBhPB9DJdYzTJUdBXv6IUwxHGRcZITnxs3XYVHuGCPdFK BbCyJhSXTlOSHqHNnbUJWpVCQ0LRjiVFSvRYRdCJ9K LzSpGJTmAmJwAVGdMKLfSNWmzf3VPSEbAHIbKOYoBkHvVJHyUYNzQLjuNEPxBNAlORa8VSJzGLTbPS1S BdAxVTDlWfQ6VSQjYAYoEAKdmx7NXRHyIPBjXTEfLvNtENLxKJJkMGgqWCUbNDFeLmf6VXOtMKLdIM3E ZwGsSVVyKbJzPkCzHRLhYKCdkn3IAWRiYOGnDiG5Jf AlYXJpAOXhZDkaKUGmHGZmNcZ4GZUyXIQhXD7LHfVaSCFyKmG4OKrzZUXgMAAiip4HrUXnlEqiwc6NHQ pGLk5UkArmWRGbJAhhAh9qaOCmMAFxZURPVb8WbqBpOEJgXKADUTvxOBWfCBu8MUPhA2XyGPTcDzqiBO FlQ6GfXlCcGZsiILtzTkjyJvI0FhEvBfTyICEsMEAk JDP3PBP8W4N9V4X3KKP0RUIrBjZ+ZP5yAGy+Ye8Fs8LvfvD7ftIxXXmiUIGtXm1FEPGRY1IHIt== ID Date Data Source [id number] 06/13/2021 12:35:23 PM EDT [facility] Name Value Range Interpretation Code Description Data Arabella rce(s) Supporting Document(s) Progress Notes [facility] POYHMa0wMcVHTfDl06/BNBdbSXUic6RbOGpoBQk0FXlzLKZbD1KuRKO4wD1jLYD7ZEdPDxBgWfAzDIR1 lbm [file] ICAgICAgICAgICAgICAgICAgICAgICAgICAgICAgIC CqYYQoAGLfPVQvDZUnEMIyLNRfOKSeIPLkJQWjGQUeEIJyQDRdBS0WJSWzDNRlZQXaUMIsNOUiQNWzFX AgICAgICAgICAgICAgICAgICAgICAgICAgICAgICAgICAgICAgICAgICAgICAgICAgICAgICAgICAgIC XxXFKzCTYgBIUgIKYxDOTuZBRjPL7RXUXsCIEjCTUu ICAgICAgICAgICAgICAgICAgICAgICAgICAgICAgICAgICAgICAgICAgICAgICAgICAgICAgICAgICAg UZPpLWUaJOTmLYWxKNEfWHOoWPSlTLYvTIObRMTbRN9GMHNyCTOuMEOpJKDzCSWaZRAbBAPfQOWyLOQv ICAgICAgICAgICAgICAgICAgICAgICAgICAgICAgIC PrTBAtINZdABJoWEQmOWBlVGHgVMYnEPQxGDNgVVEqMWEyRSGqAYRgJA3QBXUgCUYeDLDrHQXtZLNiXC AgICAgICAgICAgICAgICAgICAgICAgICAgICAgICAgICAgICAgICAgICAgICAgICAgICAgICAgICAgIC XvQTClZEShUFBrJDXiAACaRIVoJIMrWC2NNRSsMDIr ICAgICAgICAgICAgICAgICAgICAgICAgICAgICAgICAgICAgICAgICAgICAgICAgICAgICAgICAgICAg LVGtYFBfLPOnRAUlEYSeTEAuMPIzYCJzUOUoCGGxVDVxGL5GDOTmHBXsGKJmCUGjRMGyCVMdJQKzPTNb ICAgICAgICAgICAgICAgICAgICAgICAgICAgICAgIC XfNIVaGYLgIJEgKWAgHTJrRGCuROVlANRfCAEvCWKjHGFvIZGhLVVuRFEzZQ9FWKOmUOKwYNIgBXQfGN AgICAgICAgICAgICAgICAgICAgICAgICAgICAgICAgICAgICAgICAgICAgICAgICAgICAgICAgICAgIC WuSXMjRBZjNMQnRIQrBIGgZHVoVMXtYEBbTY4AFAQg ICAgICAgICAgICAgICAgICAgICAgICAgICAgICAgICAgICAgICAgICAgICAgICAgICAgICAgICAgICAg WEQqUUBcBDPkYPCvDMMtAYUkDCImQILhFNJxOTOaSCUlPKFlJC1KRZHkFBKoEBBdUCKaJLVyBQJoDDAt ICAgICAgICAgICAgICAgICAgICAgICAgICAgICAgIC HnUXAzOZBdBRBwZMQpJQKeYEIoQWJrKJNyEANuNKMcXYYrWWFlYLBzXBZyGPGlGI5ETF00zFKts1R5XS DqVF1ktgg/Rb8GZUoymqHsyVBaDW4RRxQpYX2csp1UQnOwAU6roj5MOFnBInUoH7R4qRToHVUkHHBZMo IwY91aITrrPh32UJgnWHSaPtVlCVs0Xw7ZNeUpR9zf QFUdSsG1JAInOaW4KJYpZoJ9LUEeMkJxNNGyGCKpDR0UVSMrQ500wpJyIX5TRn0QMkSgWD1cfm0HTNSl HISiSnrIAdh9HMwrEG6SnQHcyEZ3BmShOWMIGxNqO5ucq5EqYZNuPBLOAElmFH9Xz8TgoSGqGOs+Pg0K LE8xm5ZkEWi3NrAgRQ8kim0FJPpAAcFvZ5SvvYyhJJ Zzv4doPZFmRL1jePElPLL8YHEttprbgRyqKAPDNNOweUSzoWaeTXKYGABOWgXpsEXbXU76CtUcIfPeDM U7QpQoWA6bMYfhFQ9DVGS9KThlFYGbEYHsF5lRWbQhSOgdVXEibQnjXC0XQhSnU6SeezJhyRQ2LeIlRJ INCj4+QDvmyiLnLpeIKjM3VMIcg0WtXMl4MP4XOIBe YOivQD8XDGGcyK1uJQppSO2SEbI4YGXvBFIZCnGzN28fgXDgDJc0L2LuHeMuLQUqVgkhVCTpEJchNeRf ZXMgWyBdDQogID4+ID4+TLpnRU5KBLbujrPgUKZwZh2TODGkIDVjKV8dOBOqHOOvW4U7oRneBSYUHnRz D6vvcsbeUP7bYWAuJ658zQuccwJbEDUtKXIzVk8XMB PmMIW6SFZehLCxUMLlATLZNXdoRA1KtFAnRJS9gA5gWPvwLHEdQNSiR2qFEsQslJeqFU01lXdiouNfdM BdDQo+Xn8KKY1yb8DvXEx1tuReISogYCR6GIiwMTFwBNRzRRZyDUB4IRO3YFAGLfSvEDThOSSdXLxfAD EcNABgvi0MASTdKZGtLMDzGjIfLQJcJFFrEErnOPNv ANW5PLK9DSXtSFFpQZ2HTrPsUOIoPNJzYQvxEYLfVLDfpe5AYOLiYRDjSahvAFZtREIhQMPvFJmdDQPg QLLbQNQ7WUSpGOEqXY3MPmKdSXAcHDWtTcPtKXXuPBLyza2ODSHfORSbRHZeYFWkREWkZJKnFOikALZl BTG7WAthMWIsFEUqFV8MOcVoNFPfIWlsYFtbJNEjXM Hmaq6ZSOExWRGlIGv6JxZjNYUqRWIkOZflLRJnEVYeSQMwCGFrNUZmEW9DYlGmWKBhYOKlBMYgPDLrAR Ascz0XLHLqXBShCYFsFvEcGFIzYXPsWYtmHHXhMBVtZZAnQGQaPBBpOO1PPrSaGROgLUKxVuAeAOIzZE Tzou3TZHBpHODqXfR6BEAkLBEsNZFpKEifGDGzKOOg NpMoSKEjYYCvPJ9LZwLvCLHjQPR3GCJtRPGiAEGfod6TCOVqWCPrWooaXzIbAWOtFFDrDYpfYAEvWFE1 RJl9XWSfYUYqUF3QEpExXFNbCBPnKEStLKWgRLDdes0QAIRiMCQgWYK2XpXwPPMbQOSjBWyzUNTkAGJ4 UIHmNKPnNKAjTW1NSpOdUINcBNIvLXhxRSGhPDWzza 8JSHXqYKIiZkBgEYOzDXLoEXBnWOsbNHTdFFY7Lal4MHLfXSDmWN1VQrKtEJJjHcFoACJlJJLbUWAuhl 6NFWKeXRUgBIPrPRYeCHRfRYUwIMaaSUWaIRJxIzK6XCXiRTRbUG6LHmPrTBAuGpH1VWCzGQQtDEPacl 0KMDAwMDAzMTAyOCAwMDAwMCBuDQowMDAwMDMxOTcw YPYcVIAoCV6EGmChILNrKdZsNgKcLJLpDGSdlz1ZMWAaVWDaYmT4NjUaQQQmBGScWDclYCDnUNZ7VRr1 TQAyJCXdTZ1PSjEmAZVaTjk2XXBiOCYwVZYjwn3THJXcOUDwEnrxCTNzOAHpSUJjFXrtEGWlGAQ0CXR7 IOGrDEGsAR4HQmVpLOCiBolrJRFiGRJqZCWewe8DVH QnFBYaLTN8FeFuGDYoHRHaIUhkFTReBSOxJXSdTVErCNVjVI6NQdBjVQZrRXLnRhAhEUBlZKPqyb7CGX YqGVP4LYK2QtTsFHEvYGItUKj2zkLpvTDqDIr1JW8ZS6DplyFzZVEPSh1Qi332GSE2OXBzQo1XA3oeAp 9kWLLwCDFSRp1NFLo0EAWvIpNsXbP7ZtK5RullAYcd ZGMzOGExZWIwODBlNTA+JIbaSqU2QHZlGyf2JHyaW8ZnJQGlPpJ2FENrCjR1RRO8PI6hBIMSIo3+DQpz dLLuqOibSTOAQwMbPFI7AHmiEEWFCo6X ID Date Data Source [id number] 06/13/2021 11:19:39 AM EDT [facility] Name Value Range Interpretation Code Description Data Arabella rce(s) Supporting Document(s) Anesthesia Procedure Notes [facility] JDJFJy9oDuMEItEw17/OOGtuKUZov5NaREjuYTp5FJkrIOHmL6KuFSY8eR0pCFM3LLqHBkXrVzKgTOE2 lbm NqTmuNOwBhLRVoSroVCdTxRRjjWvrbcWPsUB3ToZW9RRKdR88wUPHoLAVxG3KiFJQdBNz+Ai2ALWTvgI OsUZ3VRzgX2Ltij0MFAX/vTP+Hm+bKmACZNm2pMV2WgTYaGQSSqA6rCKbMFUOyF0ZXV+Zw46f7snRyH7 ghg8ygRhC3Tgav20rbGci9yr/KtiA5oumAb4X/k5Sz yYL9/YPxrHl8kplgK0qFHiPa7DM3aUmY+Pcf2E+DhEfor/yZeErjnik7iH1AzBlYYXPHHbLqVHRWUv/5 c+FtB/X4lJ1tj6uff24hFv5zQcn7Pv/nhzFn4/zR4WM2/gm5Uml0InLYNPahkSy2tZ91kEk2Mm96YKtq hTYDWtzwNX5diAivY3ZKu9YQYvQBDJZdMDIUyyulEi ISMpaUSG+w0fAEAK48KlElF6ehLrZrwmw8FOEV6ndpvCzdO0GBPZnJj/5Z5MYcROe5InnHLuqOUBJ+Mm FEPvdR5uyz2lSbfJpJauUifdMNB9NniNor7skhAa8Lka3Vak3UL+Ftov4lpyiWtiVb+5QWS1bfqldhIB tmo6Fe2/1YBUs/PtJjEBr6DpIbA0wvr/yt4ja1z0OC DHrUG2jkOj5fW3smNh/u9pTZyZ34GYtMfSzpLTg0Eu36s6Xce3lIwOhiAhDxtyaP1tkNtJL8Ox/m/a+e d8l/+0JMv27d/jA2L4ahiZj6XC7gPOw9tWtaiaOcIZzeIlEZGMt65M0kuRJrxX0Sq7h7sy/ITkqwys9o RzFd0rMhvJ/VyqNh1K2iA+jHMGRZ4/pXEhqMfRVcnB Jp6D/ocuD+4lWe/sr9ie9+n9e3TXr6y0PAiiI1MrNFw/qWY5XGs1Q4iON6EdtYE61diXEf6Jt/Jackson+wi/ [file] AgICAgICAgICAgICAgICAgICAgICAgICAgICAgICAgICAgICAgICAgICAgICAgICAgICAgICAgICAgIC AgICAgICAgICAgICAgICAgICAgICAgICAgICAgICAg ICANCiAgICAgICAgICAgICAgICAgICAgICAgICAgICAgICAgICAgICAgICAgICAgICAgICAgICAgICAg ICAgICAgICAgICAgICAgICAgICAgICAgICAgICAgICAgICAgICAgICAgICANCiAgICAgICAgICAgICAg ICAgICAgICAgICAgICAgICAgICAgICAgICAgICAgIC AgICAgICAgICAgICAgICAgICAgICAgICAgICAgICAgICAgICAgICAgICAgICAgICAgICAgICANCiAgIC AgICAgICAgICAgICAgICAgICAgICAgICAgICAgICAgICAgICAgICAgICAgICAgICAgICAgICAgICAgIC AgICAgICAgICAgICAgICAgICAgICAgICAgICAgICAg ICAgICANCiAgICAgICAgICAgICAgICAgICAgICAgICAgICAgICAgICAgICAgICAgICAgICAgICAgICAg ICAgICAgICAgICAgICAgICAgICAgICAgICAgICAgICAgICAgICAgICAgICAgICANCiAgICAgICAgICAg ICAgICAgICAgICAgICAgICAgICAgICAgICAgICAgIC AgICAgICAgICAgICAgICAgICAgICAgICAgICAgICAgICAgICAgICAgICAgICAgICAgICAgICAgICANCi AgICAgICAgICAgICAgICAgICAgICAgICAgICAgICAgICAgICAgICAgICAgICAgICAgICAgICAgICAgIC AgICAgICAgICAgICAgICAgICAgICAgICAgICAgICAg ICAgICAgICANCiAgICAgICAgICAgICAgICAgICAgICAgICAgICAgICAgICAgICAgICAgICAgICAgICAg ICAgICAgICAgICAgICAgICAgICAgICAgICAgICAgICAgICAgICAgICAgICAgICAgICANCiAgICAgICAg ICAgICAgICAgICAgICAgICAgICAgICAgICAgICAgIC AgICAgICAgICAgICAgICAgICAgICAgICAgICAgICAgICAgICAgICAgICAgICAgICAgICAgICAgICAgIC ANCiAgICAgICAgICAgICAgICAgICAgICAgICAgICAgICAgICAgICAgICAgICAgICAgICAgICAgICAgIC AgICAgICAgICAgICAgICAgICAgICAgICAgICAgICAg ICAgICAgICAgICANCjw/tGHnV2xsfVRtfxE2B4szGl5NSc6EEB0zu0DoRKBdQTarwqJnHbnSQpVvVMGr TraFMcj6TPwkAV6BsHRxP5UcS1NoWUcqND9ABWIdQEGwpMReGVEaEEOiAeF8HXLgGAvkJC8LdKJtZBtk ELAkCYPqBjEoKQOyMS5CYXXtQ245rqMzHs1WZe2UBo UlKR5pnk5PXgiiWZTlXmfUPpi5FImyNM5FsNOiuLMuYOIhRJIRCpJyL7olc8AxTshyLARJAJfoNR2Kw1 VudCAxDQo+Cw1YEX0fr0RtFIrxXCUeIE8xfx0OMVqTFxZcR9ZsnKmoNFZzCLT0zSWvaVNrDEAxW9DyiK CaYP0gcNOzZJC5WIYbXPHsRKVmJR4uunXcRBMLDrUa FDGbGLGjKR8iEEUfJEKyQkJ3JYKNMI8YQNSoBQUtsAFxWMFzCTZCDP5HMZfqINI4FmhkvkMbhWWoEXue BW7VAGHeteAySgtxZALGEWe+An0YWE5az8KmHZvxDVFaSQ4ona4ZNOnQLiIlO7J0fRHlK4T9PFhyRq0D ZNZlFFNdTeKaKYACILseMW0RVA3jauN2HL7YqUGiNA ZiWQImqJHeHRl4F21juHEcTUdpDE2VRUV+Mau+Or9GZQMjDALrLXVuRyItVQNENhQuV8SpE7KJw7EdR6 YlHA90vHqksuVaMFooBB2WWV4bSCQeGQDIUE4HhANodN0yxqZvEjCwIMTVAhQhU48jvNPsTEQeKDE1UH OuWx1VFZTwH6GjefWalJwkuvAnKXIlJDSASA2NVAno rfIaeGVfsLoiXR19sOqcXR6RYo4JMcFaXX6lwu8FtNLqDg5KRFRcMP7ZJZKgPZFrVRYhUMT3LLBhQjDw BIneJXGjPLLgHWY2RGZmSCUdFG8COwVjEAUaMvW3XziwMXRmSMAyek3FYVKkCATlCtM0TWWxGITjNBQb BIooVEFkEIGnHGR5XXTzKQCaZM5IYuXfZPQlVSGeVl IbJXJuCSRxin9IQJOsPWTcItExKLZkTWFgPWLzDYymWFVrSDBbKHE9XMApXZUuWQ5YReEgVPYnFSUyHW zkTIEzXHOpip2GRKRwGHMpBABmTfFsNTYrHGOzTKtzYUSjKXI6PDW1HFYcPMKiXN2ZGgLsGWOnWNG1ST VmLZNkPPFbqq8MSYCyTBAlSFV9SNYbTECdGKDsVAck EGGiBUS4DTWaLSTiKHKlUD6SGuTaJCPiDBWlZJCxEZEeOPNdum8TEWNbIOBuHRW7RzOkWAIwPWVhLJwn CUMaAFX9ImH1RPXmJLGkOS4SBcTuMXJrQQh1ZVidHDHmFCZxlh2UCRCfHPOrJRO1KZMtCEPbEHWoNWdo DVDySHQ9OvM2POQtSGWiQU8WFaIlNIFzZaXpHLhnTN MhIIRlpq2NQAFiQPOsHFKrAPWoMHOzNNEvOSfgAWRzLNCzJuM9WPOuORNrZL8NKpIhEHGnGzM0FJraFC TvUKPpkp8AIOUcMYLcITu3JyBtHDCwLRHnZTakDMCdVRPyBQZ1KVVaNAXkCC7BFjBvSZNzAdPmCOyvYL RyKGThta9ISDFnOGLwJhx3PgNiULOrCHMfWIczHYGl EQOaHHP8IGBgKGLhUJ2VYcStTGEmAgBgWyLcTPVqKDBpaj0GwKIpiXkcek4WLVcSTn8FpCpfFPOuLPfo Uy6vxFOqJAZpYWJVQi6VugWqNOVsVBNZUHoaRXFsUJHnKAA9YAN1Hqn7FZZjTUZuYDlpVKEjWzKyJYh3 IEr5AzR3YkD4MYq7RgwlIobvUaHdTzItQ7VkTUZsUp F7ViQ5UTm+MP3jQKj+Ic9Fc0IckyM6rdDdGObsWPM2VX9LBYBRS3VVDr== ID Date Data Source [id number] 06/13/2021 10:40:27 AM EDT [facility] Name Value Range Interpretation Code Description Data Arabella rce(s) Supporting Document(s) Perioperative Nursing Note [facility] TIQPNh5pNeDZEaXm74/NMQzsEQPrc6UtDUlcIHq2NLqlPUZzH4JeKGF1oU2dZYX8WXqAQdJlUxUdIIO6 lbm [file] HYJiOnE6WCddHIJvGKS6O9FrQaHdJk6cPOPJZv9+KHrwaPDdjScrNSCGTgGoGTYiJAkoOSKJZo1T ID Date Data Source [id number] 06/13/2021 10:36:35 AM EDT [facility] Name Value Range Interpretation Code Description Data Arabella rce(s) Supporting Document(s) Anesthesia Preprocedure Evaluation [facility] TBLPQo0yQdPJYrYq62/KJWkqVOZwv3GdHWrbNYo5JJoiLQSdU9TjVGK6zZ5gJPK5FJzEMdVxZdUqNSZ4 lbm [file] YfZMI0BuNnDKReBYQbFDYjUxowEiIbUL8CHh9SZeC0VMB1wPIyPj4JAaKlKHJKBbZpAZ9CTRu= ID Date Data Source [id number] 06/13/2021 05:08:12 AM EDT [facility] Name Value Range Interpretation Code Description Data Arabella rce(s) Supporting Document(s) Nursing Note [facility] UFXPLz4iQsGXDlEi28/IFBghRYCqp4DvFFzpDPx6DXsfDEGoE4ZbAFG0hH7sDKE6DLnNCoZeXeCuDOS6 lbm [file] RWj5Lf8LQYLLC1OFHk== ID Date Data Source [id number] 06/12/2021 06:38:56 PM EDT [facility] Name Value Range Interpretation Code Description Data Arabella rce(s) Supporting Document(s) Nursing Note [facility] HSDAOz4sWpNETfJn73/LAPquMUZdh7QpTIbeTAn8PTgkAKGfE1BpUSH6xV7ySAA0HLkLIgYzZxViDZO3 lbm [file] WyEOAaCxSrFIj7GBsiEHh6PBK6HQ9wVSCWQy9+GPvoyVKnfGhlKAZZWbCiHZHlKWcoWCCYKf3Y ID Date Data Source [id number] 06/12/2021 07:45:00 PM EDT [facility] Name Value Range Interpretation Code Description Data Arabella rce(s) Supporting Document(s) WBC 4.21 x1000/ul 4.80-10.00 Below low normal [facility] system RBC 5.04 x1Mil/ul 4.20-5.40 Normal (applies to non-numeric re sults) [facility] Hemoglobin 13.8 g/dl 12.0-16.0 Normal (applies to non-numeric resul ts) [facility] Hematocrit 44.9 % 37.0-47.0 Normal (applies to non-numeric resul ts) [facility] MCV 89.1 fL 81.0-99.0 Normal (applies to non-numeric resul ts) [facility] MCH 27.4 pg 27.0-31.0 Normal (applies to non-numeric resul ts) [facility] MCHC 30.7 g/dl 32.2-37.0 Below low normal [facility] RDW 16.8 % 11.5-14.5 Above high normal [facility] Platelet Count 167 x1000/ul 130-400 Normal (applies to non-numeric results) [facility] MPV 10.0 fL 9.4-12.4 Normal (applies to non-numeric resul ts) [facility] Nucleated RBCs 0.00 % 0.00-0.20 Normal (applies to non-numeric r esults) [facility] [facility] Nucleated RBCs 0.00 x1000/ul 0.00-0.02 Normal (appl ies to non-numeric results) [facility] The above 12 analytes were performed by [facility] [id number], ,[place] [address] ID Date Data Source [id number] 06/12/2021 07:29:00 PM EDT [facility] Name Value Range Interpretation Code Description Data Arabella rce(s) Supporting Document(s) AST 30 IU/L 15-37 Normal (applies to non-numeric resul ts) [facility] Sulfasalazine and sulfapyridine have the potential to falsely depressAspartate Aminotransferase results. Baseline values before medication administration are recommended. ALT 31 IU/L 13-56 Normal (applies to non-numeric resul ts) [facility] Sulfasalazine and sulfapyridine have the potential to falsely depressAlanine Aminotransferase results. Baseline values before medication administration are recommended. Alkaline Phosphatase 53 mIU/ml 50-136 Normal (applies to non-num madiha results) [facility] Total Bilirubin 1.20 mg/dl 0.20-1.00 Above high normal [facility] Blood Urea Nitrogen 9 mg/dl 7-18 Normal (applies to non-nume ny results) [facility] Creatinine 0.60 mg/dl 0.51-0.95 Normal (applies to non-numeric resul ts) [facility] N-Acetylcysteine (NAC) and Metamizole em ve the potential to falselydepress Creatinine results. Baseline values before medication adminstration are recommended. Patients undergoing treatment with phenindione will have falselydepressed results. Patients on phenindione therapy should be tested with an alternativeCREA method.Toxic levels of acetaminophen may lead to falsely depressed results forpatient samples. Glomerular Filtration Rate >90.00 mL/min/1.73m2 [facility] GFR Reference Ranges:Normal Function or Mild [...] of Health and the National KidneyFoundation. The Norden method used in calculating this result is traceable to IDCA standards. Glucose 103 mg/dl 70-110 Normal (applies to non-numeric resul ts) [facility] Sulfasalazine has the potential to false ly depress Glucose results. Sulfapyridine has the potential to falsely elevate Glucose results. Baseline values before medication administration are recommended. Calcium 7.9 mg/dl 8.5-10.1 Below low normal [facility] Total Protein 6.3 g/dl 6.4-8.2 Below low normal [facility] Albumin 3.0 g/dl 3.4-5.0 Below low normal [facility] Sodium 138 mEq/L 136-145 Normal (applies to non-numeric resul ts) [facility] Potassium 4.5 mEq/L 3.5-5.1 Normal (applies to non-numeric resul ts) [facility] Chloride 109.0 mEq/L 98.0-107.0 Above high normal [facility] Anion Gap 9.4 [facility] Carbon Dioxide 24.1 mMol/L 21.0-32.0 Normal (applies to non-numeric results) [facility] The above 16 analytes were performed by [facility] [id number], ,[place] [address] ID Date Data Source [id number] 06/12/2021 05:03:08 PM EDT [facility] Name Value Range Interpretation Code Description Data Arabella rce(s) Supporting Document(s) H&P [facility] TQPJDb5oBhTYJqOv41/IKLbxVQPhv2RkHUtbGRl9HSarITTgU1KnVBN2vB7lQPK6KNyKUlBnNyHfCMT8 lbm [file] AgICAgICAgICAgICAgICAgICAgICAgICAgICAgICAgICAgICAgICAgICAgICAgICAgICAgICAgICAgIC AgICAgICAgICAgICANCiAgICAgICAgICAgICAgICAgICAgICAgICAgICAgICAgICAgICAgICAgICAgIC AgICAgICAgICAgICAgICAgICAgICAgICAgICAgICAg ICAgICAgICAgICAgICAgICAgICAgICANCiAgICAgICAgICAgICAgICAgICAgICAgICAgICAgICAgICAg ICAgICAgICAgICAgICAgICAgICAgICAgICAgICAgICAgICAgICAgICAgICAgICAgICAgICAgICAgICAg ICAgICANCiAgICAgICAgICAgICAgICAgICAgICAgIC AgICAgICAgICAgICAgICAgICAgICAgICAgICAgICAgICAgICAgICAgICAgICAgICAgICAgICAgICAgIC AgICAgICAgICAgICAgICANCiAgICAgICAgICAgICAgICAgICAgICAgICAgICAgICAgICAgICAgICAgIC AgICAgICAgICAgICAgICAgICAgICAgICAgICAgICAg ICAgICAgICAgICAgICAgICAgICAgICAgICANCiAgICAgICAgICAgICAgICAgICAgICAgICAgICAgICAg ICAgICAgICAgICAgICAgICAgICAgICAgICAgICAgICAgICAgICAgICAgICAgICAgICAgICAgICAgICAg ICAgICAgICANCiAgICAgICAgICAgICAgICAgICAgIC AgICAgICAgICAgICAgICAgICAgICAgICAgICAgICAgICAgICAgICAgICAgICAgICAgICAgICAgICAgIC AgICAgICAgICAgICAgICAgICANCiAgICAgICAgICAgICAgICAgICAgICAgICAgICAgICAgICAgICAgIC AgICAgICAgICAgICAgICAgICAgICAgICAgICAgICAg ICAgICAgICAgICAgICAgICAgICAgICAgICAgICANCiAgICAgICAgICAgICAgICAgICAgICAgICAgICAg ICAgICAgICAgICAgICAgICAgICAgICAgICAgICAgICAgICAgICAgICAgICAgICAgICAgICAgICAgICAg ICAgICAgICAgICANCiAgICAgICAgICAgICAgICAgIC AgICAgICAgICAgICAgICAgICAgICAgICAgICAgICAgICAgICAgICAgICAgICAgICAgICAgICAgICAgIC AgICAgICAgICAgICAgICAgICAgICANCjw/xATmX8rjxFIhpcH6K8ijFj2DCc3SRB2pk2XfVGGgFRpbej ZjXypKCcVvGYChFueVXdm7GGbjQB6TpPGtL2AgD0Hi YGpqHB1RMOZrQUTvfIEcISLfONNeTpQ1QHHzVJmvJL4TiYGyPVulOBPnYQWxYcHjEJPmEJJhYLPcSRHn VWAHTT4IFuRlS7PjmU22DLUOXl8+KVapsgHfDbhHJmD3HGQsq4SyGEv5YG1TFLHxQlrnm3CbBSXeHLEU BTyjDX0UQCG1BQBuZQIkEc7GWGYaS777qrJsAL7RMb 9KQqAyXA6nak9RVKDlJAGmAbhDLvt1VAqgHY6HhERmKYbYLcPoAvamL9cckEyurEMETDcfQOAierlrZF JyFBDdEAXuND1rJMYeQXEuNbX2PGZATN2TZLOjSWJziAFxPQIkEFQJDX3RNUrrQGC8BrhprwNvpSIcVW qiMG0UFXZmhpXrIpmwYHIVFQx+Xs3XDV9sg5LxZNa1 LPHbGB0vsu3ZMLpGDtIdU8K0jJGfJ4A1LXmwBs2CZNWtFCFoYzooFXVNVPisYQ0UFX4vesJ1CV3EdRDg LGQoYLAhbPEqXFe3R71dkPUbBWdhXI0CVFA+Mau+Zl7KXVUzTZIvPESgYxDyQBUPVqHvL9PzG5ZAg8Kv G9RwQM70wNkpzdMgCTjyKE6TCE2mTQCbCPOZPV0TsY QwlQ2unzYlIGKuPJQRWjHhY99zcGOtHSKrLYH0HALbXg4HXVHaS0FvlpGlhFchgrTcTDRmEILRRB6VHR inldLsuZGnbCynYT20oYcaXF1JRa9SCqFhBP6mix3OvCLyYa8ONHU4Co3RYKHmPAHzQHOnBOK0JYHpZk UnRIzeVIRgZYDyLHG0VVBcIFEyFW5HApRlDUHnWGZ2 QGJnYXRaTALgeo7PXQBfUGE2IoZyZyMwARMuZQWgFRexNIPfZGRkEXN8THFjUEHxBT1RMhWxLFTiLGK8 QzcqJJHhBQUyjg8EPWPqGIIjXrEiLcNfQQNmKUYlTPlwOMIiFTP5CkWjDYAyDDHhLQ4MVaPoASAvASE4 WVWrQNLrRSVzdq9LBPKtWGXmNGU4MnYuBCPjFTYqNU nuEJOfVNL1Vec8FIEfALJfAU6LOdCmEOWhCDAqNPZfXMKaJZEisp2PLXBvDWYvASAmJGFhIWSlODBoSP mpPZAiCGFiYpX1HGEzDLJlZR5ZZoQyGLEoIAS9HpCoSGPsRWKswk6MXEMvPZYzPMd8FKPoFMReBMJeRS gbBNTxLSZuFzX8TPRxTROeKW4SBlRpDNUrGLB8OOSm KZEzHCMkkg1TJRKdPWFsIdS9LEQkOPDiSTKxFArjUVKlDBC8UJB0CRWeGBJbPB4IGtByMAKmCxZ7QxEx VVHcFMGuyc6IPWYqYGUmEIb2RxKuYUVzOIEiGCuqRVEpKOO4HhHfUJRrWYMqHR3NRtHuKCLhTyItPZvq QFMqYLQnmf7NVMHhLNApEbUtGqMeJOOyYCAuYTseBJ LiQBR8EXweZZTlDNKnBE1FCcZmGBLaSlp4QzKfUNQkDGFrsn3VFZKgKNYlILTvBkFcYKLwPOHvGLehBX MrEPQ4Oze9AJDzTFEyCL1AQkEiMAAkZpw8LfInSPOuWTIkyv3ROAJcWZZ9JvL4XTTzTSTgDJJjDCwkQQ NcWNCxGrPiUYQdDUXaUT4GGlQeHTEjWGX5WpYeKBKr YBBznm8WVJRzSUI0ShR0XoAbABRgDMKlPPtiZRHtPFFsXsS1ZJDeYSBhIQ0QPmMiNZFhSGAzCTWvYYBa KSGgwc3XTMZbANU5QOQ8TQWgKIFvWGNvOKzyOAPpVXZ1QTU5FXCmDDNjHU7RHcVyQZXlLTL5ZSIwJKNm MGNgip6YANBiSQO5QtX1HIDsNITdOBRlDHanOUNmVY Q1KXYcQNLoNJEfMW2ZHlErPIWsUYD3NaHeCPGmYSQsju9MwIDxrWcqts4GCMfPLn6ZdQnuHWTrDVplSe 9jnNO8DQLuWJPOTr8ZwlTdERRhIIQEXJgoNTNhDDP0HSBkCaGpYQQyMDO6EwJ3NCC3UISeQHLlFYBoC2 V1HdH8CpMhBrEwOYGmXBT7MDOlJqmuIaW2PSU9MYPo MTBjYjQ+QV8zVOx+Qy4Ib1IcbjP6acJgAWe2GojyAA5RNCXWH3FEEf== ID Date Data Source [id number] 06/12/2021 04:02:17 PM EDT [facility] Name Value Range Interpretation Code Description Data Arabella rce(s) Supporting Document(s) Progress Notes [facility] ICLYCm2iHmHQAoFh04/ABQskMTVei4HyRJykDEw4WQbqOEVdB5XlBJZ3rQ3jWID6AYoQPqZlPwNsIRW0 lbm [file] HUK0ZDIj== ID Date Data Source [id number] 06/12/2021 01:37:55 PM EDT [facility] Name Value Range Interpretation Code Description Data Arabella rce(s) Supporting Document(s) Care Plan [facility] JTQKJp1vDnCYZbUi64/OMOqtOMUba4LgBGukNIj1ESloFQFyV2UxOYV9nJ1sRUF5JOcHPmXiYwYvOQD6 lbm [file] ICAgICAgICAgICAgICAgICAgICAgICAgICAgICAgIC AgICAgICAgICAgICAgICAgICAgICAgICAgICAgICAgICAgICAgICANCiAgICAgICAgICAgICAgICAgIC AgICAgICAgICAgICAgICAgICAgICAgICAgICAgICAgICAgICAgICAgICAgICAgICAgICAgICAgICAgIC AgICAgICAgICAgICAgICAgICAgICANCiAgICAgICAg ICAgICAgICAgICAgICAgICAgICAgICAgICAgICAgICAgICAgICAgICAgICAgICAgICAgICAgICAgICAg ICAgICAgICAgICAgICAgICAgICAgICAgICAgICAgICANCiAgICAgICAgICAgICAgICAgICAgICAgICAg ICAgICAgICAgICAgICAgICAgICAgICAgICAgICAgIC AgICAgICAgICAgICAgICAgICAgICAgICAgICAgICAgICAgICAgICAgICANCiAgICAgICAgICAgICAgIC AgICAgICAgICAgICAgICAgICAgICAgICAgICAgICAgICAgICAgICAgICAgICAgICAgICAgICAgICAgIC AgICAgICAgICAgICAgICAgICAgICAgICANCiAgICAg ICAgICAgICAgICAgICAgICAgICAgICAgICAgICAgICAgICAgICAgICAgICAgICAgICAgICAgICAgICAg ICAgICAgICAgICAgICAgICAgICAgICAgICAgICAgICAgICANCiAgICAgICAgICAgICAgICAgICAgICAg ICAgICAgICAgICAgICAgICAgICAgICAgICAgICAgIC AgICAgICAgICAgICAgICAgICAgICAgICAgICAgICAgICAgICAgICAgICAgICANCiAgICAgICAgICAgIC AgICAgICAgICAgICAgICAgICAgICAgICAgICAgICAgICAgICAgICAgICAgICAgICAgICAgICAgICAgIC AgICAgICAgICAgICAgICAgICAgICAgICAgICANCiAg ICAgICAgICAgICAgICAgICAgICAgICAgICAgICAgICAgICAgICAgICAgICAgICAgICAgICAgICAgICAg ICAgICAgICAgICAgICAgICAgICAgICAgICAgICAgICAgICAgICANCiAgICAgICAgICAgICAgICAgICAg ICAgICAgICAgICAgICAgICAgICAgICAgICAgICAgIC AgICAgICAgICAgICAgICAgICAgICAgICAgICAgICAgICAgICAgICAgICAgICAgICANCjw/cLMaW9qzyH EmqvG0F8bdUr6FEx6FKM4jl6KiSZJhYDyeijKfQmoJLeJsTCYeDhpZVrt8ZUklHD8GuCDcA0QwG6DbTS ciBI5UBCIuPCKbaWOjDNDvLZWzEyI0SZDlMMrkPB5K iXImODmjIQQcIFJvQiWgXXWzKQ2KVZBsP855ptAwIo7MFv0NElQvNU0mxx3TPeieVVQzVzbKFcq9PVwl FN9CcVCiiDDpIIZmTRZQAhZqJ0jjy0GmSahvZMZJJTjgQJ3Kk3BtnYVzIWu+Ek6SXV7jp1BxJFaySUUs ZA6pfc7MWBeZIkWkI7PfdXmaJEQivnCgSUjyhpGalF IWLESyNGRcv58zcnrsQf9yJOWlXCHqMW1gUCNrCLWbVyR1COWYNH3AXKLgBLTczGZiENHkUDBEFL0AEG qaGKF7JubsxxLcjLTrUUcrPC3ZCHUfdvMfBjklMABIXBj+Ob1INC9mi2HzCHmiHEFsGC2omg9JDVfREs GxO2O0oEXpT7G8UAdoWf3AOPQzIJXyHuJqLZDLUFjn UW4JPM3besX5QI4MnOKhLNLsSFQjxLMmLMf6Y84ylJYyOYiuUJ6GGSX+Mau+Fb8RTVCyVQEjPLXpOoTv CJEYJiTkE9TiS5CTm3HoR5NtQJ92dImrrpXbWPwoXW4CDZ6jLMRaSCIFMQ6NkRCogB1eyqGfAyQjHSBF CpExD89sfQTzPSBfJVW9PDDkNk3KSNSlI4XqudItaD xvnwHqGSZhMBJMIT7KVByraoJydYRwyLnkCX12gJwoXL6IEw6UJqAtHO9rbw8UuRIgTm8ETMOsWZ1QYU LvVWAqXLQbHZX0NEIdMhGsMVjsCWQuWUZaDZI2XYGtWKTgZU1KOzQkNPUwMoI9VcQgJVFeJLJdtf1EIW JoSCUgJkS0DBEyXAYfMLEpCMciPFUvIKKyBKA3UWHb THIhQI5OVzYhBUEfFPAnJBMjIXVlYIOiwv6ICZMkVSMjKdH6NFGqSFInXWHnLHtvYIJrEJDpRNN5VQLj TGDdXD0NXsAtDMDqPTQzViIaCPHeXLTblx5IMBKrYBRvGPC0MSImYSLyPPTqCZthIZHaKCW7YnzyRKSq YMYmCE4CInEaTIGpBZA4MgLrMXVxJCZucx5INNXwIX MjOXKyCfJxHOWaNUNpABwvIKZwZKC3YaTyGLXvBWPaWV9PRhNiUTRgBPE7NQMwDUKjVXQcpb6MRWNpKQ DwODM6NQCrILJxBRKrGAwwKBMcCGM3XPrwVXScGWSnTO5LVbNpUKFnMZl3LVVuSHNkUIStsf4QJDOqUE HqKLXgSLWtCOQlYSIzSVohDWBjZNW3ICe7HBEtRLWz FI0POlUbEYYkAbKzAHknKBXgTTPuwr9QWLJuVQQiUWGjZzHjIFOmXWXpQWicNCNtMVNlABNzJKWjVUAl XG0EKhUaLUUxKnW2CGGgVQPvYCUhzz7BIYCbSPPeXEAtCXZwNABvNFNhSUpqEUSrTNVaGDWqMMTnTFMy UT4PEoHlMGElOdZfXrFbRSEoLRMtkd7DOLDwRHNsDv G9FRAyJJBxSVEfNAlfDTPoJCOuMiMcDFRsSBReHO7EXiChDSYcKbU3IIUkKDBsTRJfjs3AzTEqhPucsh 8USIiVMm7OyNfoNCHvMEkyIw7xiQUgIHObSDFOCz7GxmNsRYTkKZCYBEaaGDYsIWP4JdDfNcy3WYQsHB O9NaUgTUTlRCMnV2LhYTU7UbmlYoP7IyMqFPMrCzQ0 KZLkTWpvMaIzKxWfUwBtUgQ2FoE9NJS+IY0hMAy+Oe9Zk1FjrcJ6ppWhXWgvYAJvJN9TQSWYX2AENh== ID Date Data Source [id number] 06/12/2021 07:13:03 AM EDT [facility] Name Value Range Interpretation Code Description Data Arabella rce(s) Supporting Document(s) Nursing Note [facility] DFWEDq9yWgUYJcFf44/ELOtwJDWmi9CuFXwkXFc0PYwkCGLxV4NwUZV4wQ0aWLS3UTyJUbMrKoLiYLA4 lbm [file] Z3GWIsTEmpEcCcLTWrIXJuOqMaXR9WNk3XOpY1PXT9eHPjPs4TBtReHPyOUcGiEF0XMMg= ID Date Data Source [id number] 06/14/2021 08:35:00 AM EDT [facility] Name Value Range Interpretation Code Description Data Arabella rce(s) Supporting Document(s) Anabasine 23 ng/mL <2.0 Above high normal [facility] ADDITIONAL INFORMATIO N This test was developed and its performance characteristicsdetermined by [facility] in a manner consistent with CLIArequirements. This test has not been cleared or approved bythe U.S. Food and Drug Administration.Test Performed by:[facility] - [address] [id number] Director: Rashawn Vides M.D. Ph.D.; CLIA# [id number] Cotinine >1200 ng/mL <5.0 Above high normal [facility] Nicotine 286 ng/mL <5.0 Above high normal [facility] Nornicotine >120 ng/mL <2.0 Above high normal [facility] The above 4 analytes were performed by [employer] ([id number]) ID Date Data Source [id number] 06/11/2021 09:02:00 PM EDT [facility] Name Value Range Interpretation Code Description Data Arabella rce(s) Supporting Document(s) SARS coronavirus 2 RNA [Presence] in Res piratory specimen by MELINDA with probe detection NEGATIVE [facility] This lab was ordered by [facility] a nd reported by [facility]. ID Date Data Source [id number] 06/02/2021 01:34:04 PM EDT [facility] Name Value Range Interpretation Code Description Data Arabella rce(s) Supporting Document(s) Consults [facility] QUSTUe7wJwTBAvZe12/SKYxeQOVnk7TaHVbnDMq6GYyiTMOpD0MbBDU8fY9wLHQ6KXeITjWvInGoHLV7 lbm TqFkbAOaMrQTWjJgtTXuQuFGnpSseexNGpOQ6HvQQ0YPJjW56gLKMgKMZyU9QaENQjBqj+Xt4KTUBdiC SbEI2HEgkS8N2MsdxKKy9bQl9iJvisGVY7a7/jVSnBBCszTQh71BjUlTISOjNpKqRG/Zmi9vOyl2ZT78 OzoKTEPohTO+mz9zz2iYKi/vtdHaVxEARq+//Dn2lu 1NWd+bqu6I2bhK280z2pwinRCAIZonGH6w6DC/3HKP0tAll/fV1GsyRjuLnUnAhYjJkdFjLj5RX51tE+ gm8B66OEO3JrUcGfn4YB8TEC6hAejydV8H7eYz9nHu5Pb/qiu2WeC6DbvGAGEYcO68xaepUZifgn9UHf 8hp50MfKahFeO5zv/aHjGZ2rfS7EEEMr1ikTntP8st NAPOLEON/wWaXmRh7njUKv4wByXXyBfv8qdYHTQkVE8lcIxmXFHXrf2U9NHv+i92yQ5qNrMUND8wQ20XGMtqL [file] dsVVJYIhI7OnsfJWrlBQDOLp2S ID Date Data Source [id number] 05/05/2021 06:37:00 PM EDT [facility] Patient: SIENNA FOSTER [facility]VisitID: [id number] [place] [address] [phone], FRegistration Date/Time: 04/24/2021 22:55 Weight:68.9 kg (S). [...] family medical history. (Electronically signed by Madiha Wolff, P.AJinny 04/25/2021 06:30) Weight:68.9 kg (S). Height/Length:68 inches [...] thoughts)Bees.(Anaphylaxis)Maxalt.(Anaphylaxis) (coma). (Electronically signed by Willie Diaz, P.AJinny 04/25/2021 10:24) Name Value Range Interpretation Code Description Data Arabella rce(s) Supporting Document(s) ID Date Data Source [id number] 05/04/2021 04:34:32 PM EDT [facility] Name Value Range Interpretation Code Description Data Arabella rce(s) Supporting Document(s) Discharge Summary [facility] KRBOIk0qSsHYIpEb81/IQPhpXPZtx0YeGCkkXJc9LGneYHFwO4GkNKJ2oI8xUXC8UYhRGmSsQlNbLWB8 lbm [file] AgICAgICAgICAgICAgICAgICAgICAgICAgICAgICAgICAgICAgICAgICAgICAgICAgICAgICAgICAgIC AgICAgICAgICAgICAgICAgICAgDQogICAgICAgICAgICAgICAgICAgICAgICAgICAgICAgICAgICAgIC AgICAgICAgICAgICAgICAgICAgICAgICAgICAgICAg ICAgICAgICAgICAgICAgICAgICAgICAgICAgICAgDQogICAgICAgICAgICAgICAgICAgICAgICAgICAg ICAgICAgICAgICAgICAgICAgICAgICAgICAgICAgICAgICAgICAgICAgICAgICAgICAgICAgICAgICAg ICAgICAgICAgICAgDQogICAgICAgICAgICAgICAgIC AgICAgICAgICAgICAgICAgICAgICAgICAgICAgICAgICAgICAgICAgICAgICAgICAgICAgICAgICAgIC AgICAgICAgICAgICAgICAgICAgICAgDQogICAgICAgICAgICAgICAgICAgICAgICAgICAgICAgICAgIC AgICAgICAgICAgICAgICAgICAgICAgICAgICAgICAg ICAgICAgICAgICAgICAgICAgICAgICAgICAgICAgICAgDQogICAgICAgICAgICAgICAgICAgICAgICAg ICAgICAgICAgICAgICAgICAgICAgICAgICAgICAgICAgICAgICAgICAgICAgICAgICAgICAgICAgICAg ICAgICAgICAgICAgICAgDQogICAgICAgICAgICAgIC AgICAgICAgICAgICAgICAgICAgICAgICAgICAgICAgICAgICAgICAgICAgICAgICAgICAgICAgICAgIC AgICAgICAgICAgICAgICAgICAgICAgICAgDQogICAgICAgICAgICAgICAgICAgICAgICAgICAgICAgIC AgICAgICAgICAgICAgICAgICAgICAgICAgICAgICAg ICAgICAgICAgICAgICAgICAgICAgICAgICAgICAgICAgICAgDQogICAgICAgICAgICAgICAgICAgICAg ICAgICAgICAgICAgICAgICAgICAgICAgICAgICAgICAgICAgICAgICAgICAgICAgICAgICAgICAgICAg ICAgICAgICAgICAgICAgICAgDQogICAgICAgICAgIC AgICAgICAgICAgICAgICAgICAgICAgICAgICAgICAgICAgICAgICAgICAgICAgICAgICAgICAgICAgIC SpCLHrVQGoKAItDBStIEZwIDKiGXCpWQAeBWMcALw7Y2djLRAmLIRoEG3tJXz1Gs6+BPcTWhMbLQX2fq PloD6NBR7oo0QaTGgoOUWgz8YlQSe7ON7ITEPfUHpm BO9PQPycrb8SNVWhWCTzpXJSs6izFxPlIGU1VFSiYvxdNH1KKCZfF3fpdcYiIQRcYEBMZUhbPUXOGRek OQNZRVZkMJKvPvLuIuExNNVqSA7WALTfN939lgJoEX8LYx0ZRvEdAO5ntk9BGSBmJDEkVrwOQte0YClx BY2OyAIwzAG8VqTyBQFGWxOfS3fyy4GqNQKoFWPTOB itJR3Gj0ZrvTXbNEv+De9EWM2fe7ZnMFg0SaFcMH3toy1HFKzMBxGpD2SduDuxIAOiz8VkAMEhCFSXtO 5vJYQ8IHO2VC7lswJ9GCGcKKtdJD3NARM1BAftImLwByFqOSChZHspSVHIZCvOUrLtT9Pie4UxEwH3NM YnJtBeDBanAPEgDwO9FZ52iCsmWX6EFURvVRJwTH40 KKJgIOGxSv5WFw6WKoJuFR4qws7NXYXfLNMjWmmGHej7JPhjNC4SgCXoC5ImqFEdp9gSIvViY1YIHNN1 DIViIj2CACMsTpMaWGTvUBloZK3kNMSsSEJVgIyhtiJ0UH8TWH9vdiUzWB0JEjSgZe0gVd2DXhVrB1Nx V0DeLOVpBXMCYPyzAK0KONmeAT0tQA8Yq9DCxDCccF 9pvd5PDGKtVAKfGvqtgq5KBnvnX0N5lNcaOVRtPMJlMAQTTDmcJD8KKDTaTUN4FZL3VPZoQIECPzEnE8 3kAC3AV4Ooa14hCdP5SXIdLwKgRInbZF96bGktinGxdOFjgFgcYR2RAy2+DQplbmRvYmoNCnhyZWYNCj JnHTWYNvIpFQMaRMCbYHDvKyD2XdEfFe0SHXVoUZFy XJTiIpZwUNZsPTMxDQnrTISiTLE7JFe2KWYhAMKaWJ5JNeDrVJSvHgv0IogsWJJfXCOzxn4NQRWdOAZb WZF4DpMgYBFsOQQaYWbdEGYlWOAaMxqrIBAsISDrFG9TVpDvIZStYHQ7NOIoXKNzZJNzqt5TQYTwKUBj RFJ6ZfNgWWZbUNJrEJrwRFUyZNO0IOZoXPSoUHNlTF 5DMaFbQZUmZCu9MWeaBBCzKRVsfi0MLMMqDKMzEPR9NYJzRERjJCJoZMzqQWYhLUBeOJg7VUQqTZXtVZ 3KOtKyQMBqGZP8RIYtXZElEKAdsc4FQDWxMTIhSjLcLzEbLPWzSVYpBVboBLAuCTDfKIEgDPXxVUTmGZ 9MKpUsLNMhYXQ1WoHjUEImDYJikx9TSJJwFVFxKjD3 BDSsAVBsPZSvGDedTAStWWKtTCUcLHZgZLCeKC4KDsRoIZHeAJT6LaAzEUXyVUSqaj2SKDUjNIFxXNWj SUNxQKJbWJUkCHxoNTKxNIR5PlOfEYFlYHAoWL5BYzKwNBStHjf7LPVyPMDgVYIptp6PVDWfOBVmQiu6 QdFcXOHqHRGxYIkpNTDcSLR1DIo4BNUyMXGzZE9KTt PzZZKxZkzlKEMwQRHeYWBkrt4PXFLjWOXyMVF6AwXkKUEnCVXdFLmjSLYdVML6FAS7IRTsAFYiJE3CUy KcOOLnZqf2AUFcZLDaAXZhhj8QGXIxXMOpQSn5HGRyFKRuSCTjXXgmNXEqEHFrVcT2NWZuRCKkQN7BVl KlVHPiMzK9SMPfHTLuITZtfn0UQQDuMGSkSMO5FHHh CXTdWIBqUIzzVKYiVBZ3AOIoLNDpYYAyJI1ZHuWiVYOvQxPsHQmtMIMwHWApfu1TWVAxAXVzUkN7JEFk OGVjUIUyBBleZWVxBXW9Qoh4MUFfYKDwQM3XKjYbMCHoPkE2LBTiRQUvXWLswm6HCKWpSPOySks7GHXv HSZlZOFvELacRQLxXCE1GMj6XVXjOXIkXD1PTzRgZR RqEvveKcEhHKDaDNKivu7SPBIxADKbFGEkJnNvJFXjWQBeWGprSYWaCZSyMEZdGUVxKHQkYY8ICuFxKM DpOXBzYkBuTLEkTWMzue3BWFGmQJC2TJRcBGCgXVYrNWEtSTm1bbWexDFsXHy0WC0MK3SviqHoRZNYOp 4Nw520UQBjWUBtYs3RS1yoAb0bPOTqKGETPt8MYMz5 E7Q2K8CcKhE5FlwtWiLsIkOvHvqoSoo2TBBwS1OsBLX+NIrwDGr7Q1OyVdDeNMYsNQQzDPMtA2JnJHV5 XYFdX6AaNI3yFKMVMo2+FAlyrDLnnMdzLWKIRoSmGYP5OTfpCVKTZd9V ID Date Data Source [id number] 05/04/2021 03:25:37 PM EDT [facility] Name Value Range Interpretation Code Description Data Arabella rce(s) Supporting Document(s) Nursing Note [facility] OZHUAu5eJnNDScDt35/RLUjoOTVll5XnHVrxDYa8HGxrSIRmY8VvDKJ3oY8lHCU8RBaQZkQvKeWpCAY1 lbm [file] [id number]== ID Date Data Source [id number] 05/04/2021 12:56:29 PM EDT [facility] Name Value Range Interpretation Code Description Data Arabella rce(s) Supporting Document(s) Care Plan [facility] GGDFRk5oHvCZBzXp42/SAKvlHEWeo8PbPEgmOIw4LJkmKVCsQ4VeZOB0kU7kPFN1QMgMPjFtKfKgLWZ9 lbm [file] SyAwQePdjrP3ZnWgseUzW7DsPjKZ8RFj3RAuQ2YRD1wFEsLv2SXtG6UUWEAlIjQC8KXDx= ID Date Data Source [id number] 05/04/2021 07:13:56 AM EDT [facility] Name Value Range Interpretation Code Description Data Arabella rce(s) Supporting Document(s) Nursing Note [facility] MEPGFs0dPaFINrCc06/MKTgwMGRmu9KzVQysDWv5HIqxJSCcM4MwHHK0pI2vPYO2PNlSDzIpDjIdXGN6 lbm [file] SjHvGzQF0ZAt2BXvN4HOY1eAMqOe4YZhIyUVAQWaHxRG7UIQv= ID Date Data Source [id number] 05/04/2021 05:39:00 AM EDT [facility] Name Value Range Interpretation Code Description Data Arabella rce(s) Supporting Document(s) Blood Urea Nitrogen 15 mg/dl 7-18 Normal (applies to non-nume ny results) [facility] Creatinine 0.78 mg/dl 0.51-0.95 Normal (applies to non-numeric resul ts) [facility] N-Acetylcysteine (NAC) and Metamizole em ve the potential to falselydepress Creatinine results. Baseline values before medication adminstration are recommended. Patients undergoing treatment with phenindione will have falselydepressed results. Patients on phenindione therapy should be tested with an alternativeCREA method.Toxic levels of acetaminophen may lead to falsely depressed results forpatient samples. Glomerular Filtration Rate 83.00 mL/min/1.73m2 [facility] GFR Reference Ranges:Normal Function or Mild [...] of Health and the National [employer]. The Norden method used in calculating this result is traceable to IDMS standards. Glucose 86 mg/dl 70-110 Normal (applies to non-numeric resul ts) [facility] Sulfasalazine has the potential to false ly depress Glucose results. Sulfapyridine has the potential to falsely elevate Glucose results. Baseline values before medication administration are recommended. Calcium 8.5 mg/dl 8.5-10.1 Normal (applies to non-numeric resul ts) [facility] Sodium 137 mEq/L 136-145 Normal (applies to non-numeric resul ts) [facility] Potassium 3.7 mEq/L 3.5-5.1 Normal (applies to non-numeric resul ts) [facility] Chloride 109.0 mEq/L 98.0-107.0 Above high normal [facility] Anion Gap 9.7 [facility] Carbon Dioxide 22.0 mMol/L 21.0-32.0 Normal (applies to non-numeric results) [facility] The above 10 analytes were performed by [facility] [id number], ,[place] [id number] ID Date Data Source [id number] 05/04/2021 05:39:00 AM EDT [facility] Name Value Range Interpretation Code Description Data Arabella rce(s) Supporting Document(s) Magnesium 2.0 mg/dl 1.6-2.6 Normal (applies to non-numeric resul ts) [facility] The above 1 analytes were performed by [facility] [id number], ,[place] [id number] ID Date Data Source [id number] 05/04/2021 05:18:00 AM EDT [facility] Name Value Range Interpretation Code Description Data Arabella rce(s) Supporting Document(s) WBC 5.61 x1000/ul 4.80-10.00 Normal (applies to non-numeric re sults) [facility] RBC 4.13 x1Mil/ul 4.20-5.40 Below low normal [facility] Hemoglobin 11.1 g/dl 12.0-16.0 Below low normal [facility] Hematocrit 34.4 % 37.0-47.0 Below low normal [facility] MCV 83.3 fL 81.0-99.0 Normal (applies to non-numeric resul ts) [facility] MCH 26.9 pg 27.0-31.0 Below low normal [facility] MCHC 32.3 g/dl 32.2-37.0 Normal (applies to non-numeric resul ts) [facility] RDW 14.6 % 11.5-14.5 Above high normal [facility] Platelet Count 235 x1000/ul 130-400 Normal (applies to non-numeric results) [facility] MPV 10.4 fL 9.4-12.4 Normal (applies to non-numeric resul ts) [facility] Neutrophils 51.3 % 40.0-74.0 Normal (applies to non-numeric resu lts) [facility] Lymphocytes 36.5 % 19.0-48.0 Normal (applies to non-numeric resu lts) [facility] Monocytes 9.3 % 3.4-9.0 Above high normal [facility] Eosinophils 2.0 % 0.0-7.0 Normal (applies to non-numeric resu lts) [facility] Basophils 0.7 % 0.0-2.0 Normal (applies to non-numeric resul ts) [facility] Immature Granulocytes 0.2 % 0.0-0.5 Normal (applies to non-nu meric results) [facility] Nucleated RBCs 0.00 % 0.00-0.20 Normal (applies to non-numeric r esults) [facility] Abs. Neutrophils 2.88 x1000/ul 1.92-8.31 Normal (applies to non-numeric results) [facility] Abs. Lymphocyte 2.05 x1000/ul 1.20-3.70 Normal (applies to non-n umeric results) [facility] Abs. Monocytes 0.52 x1000/ul 0.14-0.97 Normal (applies to non-nu meric results) [facility] Abs. Eosinophils 0.11 x1000/ul 0.00-0.76 Normal (applie s to non-numeric results) [facility] Abs. Basophils 0.04 x1000/ul 0.00-0.22 Normal (applies to non-n umeric results) [facility] Abs. Immature Gran. 0.01 x1000/ul 0.00-0.02 Normal (appl ies to non-numeric results) [facility] Abs. Nucleated RBCs 0.00 x1000/ul 0.00-0.02 Normal (appl ies to non-numeric results) [facility] The above 24 analytes were performed by [facility] [id number], ,[place] [address] ID Date Data Source [id number] 05/04/2021 01:18:34 AM EDT [facility] Name Value Range Interpretation Code Description Data Arabella rce(s) Supporting Document(s) Care Plan [facility] LMESPy2sPqYUQjUq09/LZHffPLFgx6QqDGoyXXf7OVxgUSStL2CuYHF5rG4lRSZ2PEmGOzSpIfSqKAW8 lbm [file] DEdFG9901MLdmiMfaIe+ohDA6uuMPl8vykGeQ8TvLTSx3xJ10Vr1j+9v77AnZT/FAST FOOD COOK/hMuL8ZwV77ALiM [file] ICAgICAgICAgICAgICAgICAgICAgICAgICAgICAgICAgICAgICAgICAgICAgICAgICAgICAgICAgICAg ICAgDQogICAgICAgICAgICAgICAgICAgICAgICAgIC AgICAgICAgICAgICAgICAgICAgICAgICAgICAgICAgICAgICAgICAgICAgICAgICAgICAgICAgICAgIC AgICAgICAgICAgICAgDQogICAgICAgICAgICAgICAgICAgICAgICAgICAgICAgICAgICAgICAgICAgIC AgICAgICAgICAgICAgICAgICAgICAgICAgICAgICAg ICAgICAgICAgICAgICAgICAgICAgICAgDQogICAgICAgICAgICAgICAgICAgICAgICAgICAgICAgICAg ICAgICAgICAgICAgICAgICAgICAgICAgICAgICAgICAgICAgICAgICAgICAgICAgICAgICAgICAgICAg ICAgICAgDQogICAgICAgICAgICAgICAgICAgICAgIC AgICAgICAgICAgICAgICAgICAgICAgICAgICAgICAgICAgICAgICAgICAgICAgICAgICAgICAgICAgIC AgICAgICAgICAgICAgICAgDQogICAgICAgICAgICAgICAgICAgICAgICAgICAgICAgICAgICAgICAgIC AgICAgICAgICAgICAgICAgICAgICAgICAgICAgICAg ICAgICAgICAgICAgICAgICAgICAgICAgICAgDQogICAgICAgICAgICAgICAgICAgICAgICAgICAgICAg ICAgICAgICAgICAgICAgICAgICAgICAgICAgICAgICAgICAgICAgICAgICAgICAgICAgICAgICAgICAg ICAgICAgICAgDQogICAgICAgICAgICAgICAgICAgIC AgICAgICAgICAgICAgICAgICAgICAgICAgICAgICAgICAgICAgICAgICAgICAgICAgICAgICAgICAgIC AgICAgICAgICAgICAgICAgICAgDQogICAgICAgICAgICAgICAgICAgICAgICAgICAgICAgICAgICAgIC AgICAgICAgICAgICAgICAgICAgICAgICAgICAgICAg ICAgICAgICAgICAgICAgICAgICAgICAgICAgICAgDQogICAgICAgICAgICAgICAgICAgICAgICAgICAg ICAgICAgICAgICAgICAgICAgICAgICAgICAgICAgICAgICAgICAgICAgICAgICAgICAgICAgICAgICAg UUKiNKKdCUDsALKuXRp0X6grEGCyEFUpVQ4hNBb9Hy 8+NNjCUgCiZDC1ezXciB7LNF2sa1WzHQlcTDLrm8YbFEg1HE6OOAKzVAnsZV5SFNzyyk6DIXYcKLRpjM UNr6aiXhRyOZL9YZNuNlgxUF6LTWHeE7vzpqHyEWXoPSVSDD0OIeIsA0PgbF63SDDTUv5+DQplbmRvYm rFMcBiVNVsx9EaPKn1VK2ATDSlMfkvk2QvSpEaAVLO DTqaSA0IQNX6WPEjNRIoLf6HSNCwQ916fiQyRR5AXt4JCvXkEU2kht0CIxZzTZNrHigCVqk9QCucWG1B sPLlQPfBRJVbLDVvKB5wNxruQtO9TJocgPBzXvhcm2BwX9xlUXASUTU2CNcvEeDbHrLqAKEgKMlrRELC EPwSGvBsA4Nud5GaCkI7OJDwJdRyMFfjGSAgPiX3FJ 34sRwfNR0YPGJzWADrZP81THUoHUVvGc8UNc1BUaWnBS1oyc6MTyOeOUIsIoxOEim5XDzvFS3QaJAcL5 MuyUEld0nBBoVxV2LPZWX8BSVwDu1OYDZaZxCbLWWfQQsePM3uMQXcIHSIzMgkdrH3SL1RSE7ffbFkOT 1ZNhFtWu3eBg7XFtIqH3CpI1UfFGHjJFMYEQvhNA7W CZhxQS2pPC5Mb8ZHsCEivN2ecz1LEXYgNWQvJuwxtu9NBsktS7B8vUxtHVCrLzBpSUHEILfsUW1EYOEw DRD2PYJeXNOrRDVWQnAjL03cHB6TF1Eas10oLbW3AMOdKtVfLDzaMP09mLckcnOmlALusChzKL1EGv0+ DQplbmRvYmoNCnhyZWYNCjAgMzMNCjAwMDAwMDAwMD PkUdV6ReBpBh1MBLYzUTOlYQKjZkMlURPnEBRoBIuyMNJeJCWiWZG0NUQyFKGiMR3UQeWeLPJkDOIyDD FuLZIxYGUyka2LVAJwGCKnOTI3WnVaSGFoIXLxGYnjJAGuUYBcTWS6QWOxEOJuBY3ODiHbECOvDCMjXJ TmBMAhFOVcxn2OKNYfXLLnCIN1LZXgNFKiTJUoVEbl NCPaISG1ZhpeTMLmMWUcNJ4XDwTsYHYfHFC7JTzpKZRlRGBrtb4FKIJfHYYrGFGyKaDnFGVqTVPhDNkp IEYgRUR0XjFiHNErKIWwYE2EQcCwARLbBPP7MQTmTAKoTGNndw3BNWNiGXSmMVL9RFQdKAZkLMHiXEwo RTXxCNZ4TXQsLMOqBVQlCC3MTfHjXLPwQYe3CwphDJ QuJJGqaw1HNJZyXXKaLJokJUGoAVCgWSQbFEqjKETvPOF7TIQ7GHNkLKHeQJ5SBeSqIGQzHEs5DEtmHX CeKGIfsh8RUNIgLJBnYFR6XVUhXVBkLQTzVTpkUTAfQWNmPxttMGKiJGEeGH6AQdJuUUVpUvJrNdEaDS GlUZUefm5RWJJjQXApKOHtIFCkMBRnSALfUJduBZMt GCHgZadrCCNyOQZzVS4RHsZiCFHpJymdTDUqERKsCDNbzy8QRHQjXPFhGWJpJBTxQCFhDKClPNrfMUEw QYD1SDK3WTLqYQUiXA4RVoQlYAWiZTHkXMcjNOVqZDToud8IRREpVWL1FPAcTKTrISYnCSPvKXuvISFl AGXxCUVgMVRvJHDjHQ3HBxEwTUZvCDWcNYLgXQZhRL Iprw8OPCLvWPH2IkT7KnOsYVPzZULzUVvdOKGrROBzPyN3JLNpKDEbJM5VJsBzFUrtDFDATdv4RFqvP6 v8PUYmEs4EF1Hge4IhOoXeYZJSGWfeSD8cmuKlGJGdSv1OR5aRSke2MlVxQLX7RGFnSBAbKYNmH0RrFA KoHSYsJsGbRidjKN2fZVy8IaJ5Oed3MWJ8RBTjXnFs NFSzDPX0WHLqTwAhOCE7PwDvNC5LCb0EGaB2WYO2zKBgMs3MMVP2OYKWDoQhEV6LJCp= ID Date Data Source [id number] 05/03/2021 04:14:39 PM EDT [facility] Name Value Range Interpretation Code Description Data Arabella rce(s) Supporting Document(s) Progress Notes [facility] OEHJXt1gKaJECvIm94/ZQJzyLEPjw2QxEObtMCe3HFjsFXKwK9GoOTY1rH7dUXQ6IDlEQgHmJxAhUHO0 lbm [file] ICAgICAgICAgICAgICAgICAgICAgICAgICAgICAgIC AgICAgICAgICAgICAgICAgICAgICAgICAgICAgICAgICAgICAgICAgICAgICAgICAgICAgICAgICAgIA 0KICAgICAgICAgICAgICAgICAgICAgICAgICAgICAgICAgICAgICAgICAgICAgICAgICAgICAgICAgIC AgICAgICAgICAgICAgICAgICAgICAgICAgICAgICAg MTWwXGFaNSHmZR6TUGUjZZGfKARxPJIlCAJmXOAvDAHtOFNjUKVwTJIySIOdGHUiCKWrTRZhSAPbZQMj GLVqFXJzFEBsQKKjQMPfIAGgLWXzPDFvYFEyDUBmRWNgSRWaGPLyXBIdZCQlKKQpALDlRF5HJXZmZPIf ICAgICAgICAgICAgICAgICAgICAgICAgICAgICAgIC AgICAgICAgICAgICAgICAgICAgICAgICAgICAgICAgICAgICAgICAgICAgICAgICAgICAgICAgICAgIC DiMB7LMXZqICJaWAMvEADePJNpASEgRZZaKTQvUEByQEWsTNRfGQUyYVRsBBFoBCIhHPQjSTXoHUAuPS AgICAgICAgICAgICAgICAgICAgICAgICAgICAgICAg KZKlWLTkAPNgMTVsZX2UIVRlSHQuVYIdSWUkEZWqEPWpGSZyPKUaWODaVDMuGGWjKYBcSVCjFKSfEVTl RHYhBTEwPTTtGLJhOMKoWRZcENBmAMVyEBJdYQHlZOJfDNVjWYOrTEMeGCAwHZXnRYOnRFSaDA9WIMGo ICAgICAgICAgICAgICAgICAgICAgICAgICAgICAgIC AgICAgICAgICAgICAgICAgICAgICAgICAgICAgICAgICAgICAgICAgICAgICAgICAgICAgICAgICAgIC SfRAZnOD4XHUEfQCEiLNJmZMCzQWGsQAMlMJFhQJUaCUOwJLPpQLBuTYRzVGLxIZRnVTIqSHZnPLNaLQ AgICAgICAgICAgICAgICAgICAgICAgICAgICAgICAg TIRoDHZqDFMzDXPoPISyQP7PLMTkPBIlKPSfJTOsEIYmICNgSAIpSOUaXKSnNNOwJAKeXZUwOKPbUSWo IDLzDJUtUTKpQRVdREYjWZKpVQRsABAqHRDuVOVyJMQrVALgJISzAHGiXZOmNCWeNSXtGBSpNQThHN1L ZF84lCIfn6B4OFNxTD5dlxw/Gh0ADFpuzkJqcSLvBL 1NTeAfXO2sri9HVuTbIH9bru9INQeKLvQtS9L5cAPuASHkZOAKPwZhT40lEQokQo60EVeaWDAvHfRxLT q9Ms9LJlThZ3zaJLVxOwZ9KHTeFoD8WXGmZvR6JMZbPyExBMKbYQNxSM0KMBMbC809djMoBF7EUo1QGl KyVD2oyu9IZUFlWYGyRnkYBni5DUypTG4JbFTcoTY9 LyNgMMVVKsZjF8efj4ElACUcCLNCPKntDJ6Br4EpbTRwSCu+Ll5SCZ6um9NiEWs2SpUuBY4hbj3LEBoM JmWbY8ErbCuaWWDnb5biYPJnZD8onMUkELG0NS0kbvA0ZGBfWKtfQA0FEZI1ITgoQpCjXeZcDFLxBvo2 NHJDQRxFUdVkT5Zqd5AaXfY7BELvZhOpIIqvZINuQy W5LY61yGbnYI4WSLSmHAWwXG27AULeZNJgAv8PSm3CJmGdIJ5ood0QMRLeOVXzDnrDNlz3INovNK2DsJ PjP8SigHRko3iAJjUlH8DZZMSwJNUoXu7RLJYbLxRbJAUbWUmhWB8kPXRkOUJZhHzcbuP3JH8ROY0dnf WtCM9CAzTtRe0mGu7QJiBqQ6KqG6OdEVZsMKZALHlm SS0PKDztLB4cOA5Ht4BQxZFifK8onl2TZLUiTFYdAlbzhr6VChvxF0E1nQodDIDvZERpFFJDSDunJV6V DYCcNYG8EEV5BXVdDFZROeUvE94zWY7CP6Sec17iAmZ2UMUoPfOtNRhsRO29sFgwkgUvkSHlzTpfXO0Q Cj4+DQplbmRvYmoNCnhyZWYNCjAgNDUNCjAwMDAwMD VqZTPoMdA2QhQnZr4UMVAjKIYfFVPiWvLvEVNjKNQyTCkcIUYzDTG6NyA9AYZvTUBhSJ0GNbAtQAHbHO evHsziVIMbNZWjbj3YZNVaYHGuDKX0OfMaEXWfHPGsLCeoGHFrHORaPRI9FWGoWKTmOQ0PIeSvTUPqJK AnLJExAGSmAYMxyr4EEPCpCZNeZWceZHNkTCLwSSBl EAsgOTKiNJP9MVC1ZUKrHUHtAP9DXgWkMHCbRBY2TJpcVYZoFEPnet0WMKVzRNXeTaDkULJxRJAxRMTr VWclZACkGHT1SobcZRQjZYWiAP1IWxKhMISfHLs7CgRnZORfMTAjhm3AQIWoRAUrUFmeJLJtWGMrLRPt SAbpKQUwWBGgHWA4KEBkKAJoCB1SRzMmHINiMPDnFu NiLRPoPNUxzm9GBIXvRVDnFkH0AAVsLLZqFPUaJPmiMDYdVLHaQtgbAJPrRDYmIQ4TZeJqFJEeFUB0Un XcQWGcHIIcak3KXFRlSLNvZBnxXJTeLAUsNXJdBZlbUPHxQSM3YfYoEFRaZAHcWU2UCdWvZLEkRjW1Fj euMIIvNKLtow8ESFKgLUYgYKL2YQHgXNNqBDOkPWzm ZFMxMHB5KXE9XQLmHUWjGL7WGsLoEADeWmS5ZahuQKBwKSSays9NWNUuDTXdUaw1XWVkJYQbUMMyGFgq TGIvYJY3CEU2XEFzREHmKF9GAoWnSKVeLfjeOzagEIPqZSCsti3KANCpKYMxWRR7MNSlYDLtAXVvJXak OPPnLOY5MMP5OIGhLCAhLF3GJlAnGDMtCnyvVtafEX KzSVKdko9EBUUkLUMqQYH2AOEeTXWrMHQqZCdaFUAyNVA0YiO3MCQzHMNdLR4LIgUiDPYlAVQdEOcyOU HvMNRbyr6PMXTsFSP0PgE3ZuEmETEvXBJlDIvtBGOyEFZeJUvcDJJxQTNtCZ6ZIcOuTKUjJYW3KdUhZA XgEUGjfc0VJDJyBLU2Xju9NLIiCRHzANLlKNxnVSTb OZJ5BZHlTQFwSJDiMD7KOkQrYOJhYXZsPkWvOKJdZIDckz4MCAFiEYV8ZBJjCuTfGLHzQRPiTXrjXURk OJT8Kbt7VSVvBVTxNY0EZaVhZBBmPIjqZUOcNQLdQOWwei5ZABQiNEH0SuPaVZXfVBHpQVUmMJscIFUg RTS2PYDzZAIcVHRgUK4WBaIlDPurEJDPDqq4TTbpU8 t4JPT4OF7NN9Rqe1EaSJFhYGJEPZhvVW7kpsRpDAYgEv9FP5xUPacnPBJoBnRtSFEdHrApGSHiJGKmU0 ZgGeK5BhKbOEQmVe3lVYGpD7XjLKHyAAI6HMNnNgF5VSTvDQThOiftFtLeMSFqPdBsFC3YPv6RJvB4PU E8zDBjBp3KCXp0PKULIqVgWZ3SOEe= ID Date Data Source [id number] 05/03/2021 03:38:36 PM EDT [facility] Name Value Range Interpretation Code Description Data Arabella rce(s) Supporting Document(s) Progress Notes [facility] BUMVWt3lAmGCJyZy64/EFTcsJHTtq0SxZWcvWPz3AAkuPSLrT5FvBCF8bW3mYOT2GJoXJfJgAsFzVBF8 lbm IwXbbXHmQqWRNsIglDXmJeQKizSbkgbCFxWS0HgRO2ETIhC78dPQVjQNTzX4JeLOH1ISq+Id5IUPAykC SnSB3GItbH3NgzS+Y18hqA4i/7xEDQ2Dv3q16lGNDp5duOTiDsfqorZhq8IQ20rxePv3V//kaV0zDX7f EoM3byLVQYWWkwm5aUTSWPzDdpP2YCJVOOiKyg/CpT [file] XdQzHmZAlsVUYDRs0N ID Date Data Source [id number] 05/03/2021 11:35:45 AM EDT [facility] Name Value Range Interpretation Code Description Data Arabella rce(s) Supporting Document(s) Care Plan [facility] XKJVAy2gRlYNWrXy92/GVNyrKPEkl1SyGHksNOa3CJwoBZMfG4SjTCP5oX4uYGQ2OHlEFtFeCqMiPBH2 lbm [file] DQo= ID Date Data Source [id number] 05/03/2021 10:15:39 AM EDT [facility] Name Value Range Interpretation Code Description Data Arabella rce(s) Supporting Document(s) Nursing Note [facility] IRTTQp1cZcUYLuUm44/BGWbnWYYvy9NiTNmoFIu9GZosOBLuJ0RkMUF5cM1iITA5TTmMAaYyOdVnVOR8 lbm [file] EyY0TuUhHI9ILl9OVjU5NXU2dPIuBi5JLxV2WCBSDmQiFS7HCJq= ID Date Data Source [id number] 05/03/2021 09:38:41 AM EDT [facility] Name Value Range Interpretation Code Description Data Arabella rce(s) Supporting Document(s) Care Plan [facility] YZYVFp3aHhDXRiUu10/XRNnxLGUil0GkQKurEVp1TZugLSZfA8ZpCNO4fQ1fQNR3UFrLEuAfWcZcWFL0 lbm [file] 9GDQo= ID Date Data Source [id number] 05/03/2021 07:07:07 AM EDT [facility] Name Value Range Interpretation Code Description Data Arabella rce(s) Supporting Document(s) Nursing Note [facility] YOHTHb1fPgRBKnLr93/JOHkeELGfx8JfAKeoGUi2TVsaNJGyR7JwHPM7aV2tYSL4VKvPGcOkUkNlKII1 lbm [file] == ID Date Data Source [id number] 05/03/2021 05:12:00 AM EDT [facility] Name Value Range Interpretation Code Description Data Arabella rce(s) Supporting Document(s) Blood Urea Nitrogen 11 mg/dl 7-18 Normal (applies to non-nume ny results) [facility] Creatinine 0.72 mg/dl 0.51-0.95 Normal (applies to non-numeric resul ts) [facility] N-Acetylcysteine (NAC) and Metamizole em ve the potential to falselydepress Creatinine results. Baseline values before medication adminstration are recommended. Patients undergoing treatment with phenindione will have falselydepressed results. Patients on phenindione therapy should be tested with an alternativeCREA method.Toxic levels of acetaminophen may lead to falsely depressed results forpatient samples. Glomerular Filtration Rate >90.00 mL/min/1.73m2 [facility] GFR Reference Ranges:Normal Function or Mild [...] of Health and the National KidneyFoundation. The Norden method used in calculating this result is traceable to IDMS standards. Glucose 69 mg/dl 70-110 Below low normal [facility] Sulfasalazine has the potential to false ly depress Glucose results. Sulfapyridine has the potential to falsely elevate Glucose results. Baseline values before medication administration are recommended. Calcium 8.5 mg/dl 8.5-10.1 Normal (applies to non-numeric resul ts) [facility] Sodium 138 mEq/L 136-145 Normal (applies to non-numeric resul ts) [facility] Potassium 3.8 mEq/L 3.5-5.1 Normal (applies to non-numeric resul ts) [facility] Chloride 110.0 mEq/L 98.0-107.0 Above high normal [facility] Anion Gap 11.3 [facility] Carbon Dioxide 20.5 mMol/L 21.0-32.0 Below low normal [facility] The above 10 analytes were performed by [facility] [id number], ,[place] [address] ID Date Data Source [id number] 05/03/2021 05:00:00 AM EDT [facility] Name Value Range Interpretation Code Description Data Arabella rce(s) Supporting Document(s) PT,Patient (on Anticoag. Therapy) 13.6 Seconds [facility] Attention: Effeciive 01/03/2020 The nor mal range for PT (on Anticoagulant Therapy) has changed:Previous normal range: 10.1-11.3New normal range: NoneDiscrepant results may occur due to anticoagulant effects such ascoumadin, direct thrombin inhibitors; argatroban (Acova), bivalirudin(Angiomax) or dabigatran (Pradaxa) or direct factor Xa inhibitors;rivaroxaban (Xarelto), apixaban (Eliquis) and edoxaban (Savaysa). INR (on Anticoagulant Therapy) 1.2 2.0-3.5 Below low normal [facility] Suggested therapeutic INR ranges for ora l anticoagulant therapy: Indication:INRPrevention and treatment of DVT and PE2.0 - 3.0Prevention of systemic embolism with atrial fib., acute MN and 2.0 -3.0 tissue prosthetic heart valves.Prevention of systemic embolism in patients with mechanical heart2.5 -3.5 valves.NOTE: The INR is only valid for patients on stable oral anticoagulanttherapy. The above 2 analytes were performed by [facility] [id number], ,[place] [address] ID Date Data Source [id number] 05/03/2021 04:56:00 AM EDT [facility] Name Value Range Interpretation Code Description Data Arabella rce(s) Supporting Document(s) WBC 5.87 x1000/ul 4.80-10.00 Normal (applies to non-numeric re sults) [facility] RBC 4.05 x1Mil/ul 4.20-5.40 Below low normal [facility] Hemoglobin 10.8 g/dl 12.0-16.0 Below low normal [facility] Hematocrit 34.2 % 37.0-47.0 Below low normal [facility] MCV 84.4 fL 81.0-99.0 Normal (applies to non-numeric resul ts) [facility] MCH 26.7 pg 27.0-31.0 Below low normal [facility] MCHC 31.6 g/dl 32.2-37.0 Below low normal [facility] RDW 15.0 % 11.5-14.5 Above high normal [facility] Platelet Count 204 x1000/ul 130-400 Normal (applies to non-numeric results) [facility] MPV 10.5 fL 9.4-12.4 Normal (applies to non-numeric resul ts) [facility] Neutrophils 50.9 % 40.0-74.0 Normal (applies to non-numeric resu lts) [facility] Lymphocytes 37.6 % 19.0-48.0 Normal (applies to non-numeric resu lts) [facility] Monocytes 8.2 % 3.4-9.0 Normal (applies to non-numeric resul ts) [facility] Eosinophils 2.2 % 0.0-7.0 Normal (applies to non-numeric resu lts) [facility] Basophils 0.9 % 0.0-2.0 Normal (applies to non-numeric resul ts) [facility] Immature Granulocytes 0.2 % 0.0-0.5 Normal (applies to non-nu meric results) [facility] Nucleated RBCs 0.00 % 0.00-0.20 Normal (applies to non-numeric r esults) [facility] Abs. Neutrophils 2.99 x1000/ul 1.92-8.31 Normal (applies to non-numeric results) [facility] Abs. Lymphocyte 2.21 x1000/ul 1.20-3.70 Normal (applies to non-n umeric results) [facility] Abs. Monocytes 0.48 x1000/ul 0.14-0.97 Normal (applies to non-nu meric results) [facility] Abs. Eosinophils 0.13 x1000/ul 0.00-0.76 Normal (applie s to non-numeric results) [facility] Abs. Basophils 0.05 x1000/ul 0.00-0.22 Normal (applies to non-n umeric results) [facility] Abs. Immature Gran. 0.01 x1000/ul 0.00-0.02 Normal (appl ies to non-numeric results) [facility] Abs. Nucleated RBCs 0.00 x1000/ul 0.00-0.02 Normal (appl ies to non-numeric results) [facility] The above 24 analytes were performed by [facility] [id number], ,[place] [address] ID Date Data Source [id number] 05/03/2021 01:45:31 AM EDT [facility] Name Value Range Interpretation Code Description Data Arabella rce(s) Supporting Document(s) Care Plan [facility] HNPZVy0uPmDGSgKo81/KVQprGKIqd3IfZZagSJv5AExxOJEqE5EkZFA1hA6zBIO3IYsMOkUpMtRpVQU7 [facility] [file] health companion+5JjPHicPXUdC9sLHz1+33/4AFSzyAQGhi6I786nlVwezZ0kRZmB/psN8hpBm49+v4RT262iDq8bK xIgCa2oZQSner/0g46ttivjeQc6VcmQ3gjxjaqxuu+KZyqPiHNsWPZfh+l8sPe7IhrJj7eyvrwMb5FUH bfJzgdTKwkDM/ck+HY+XpPbJFFWG1rOFr/MSDztTas dQ6+jkFZfKkacKL10hsZ/1I4/h90xFEusMi9l3gqdOqR0q+/P7TRefNCafDICOqc/W6PfuM6wyk55UWo Wdx3o5kHaDdU6NOYo3a6kV68Gf4/0378n/bRv9bcbrg5DNs9hk2wc1dzvpHK/nq7p2v7S6UHsgcc4b4W AFuB/V1wK9DrsQI5Yfx4pxT3tf7Pf+wCamCOe4MO60 pb53swDMfVdi0V+S5FNLt4Pud5mq9v3+abl3O7d5WyPh+rIw1tG4eBQb1ZVRiw1mfnr/UpisM1c/O8h/ 4UTT/U1qEu5i99uODitDQ+MjQSdiVcLlnZx8RyTOIcIY5TDLDfdOxsiYldt204Onoec8Wssp+8hR4KB/ m39CkGZ2+N4zUCag579MX15m10t7/N1prb7QxW2jh1 [file] FNBmTjx0P6JcLKXdAa2lYUBPZk7+TEvrcJClrRmbDTGIAsHxYIFxVJaoTYQNXw1F ID Date Data Source [id number] 05/03/2021 12:15:00 AM EDT [facility] Name Value Range Interpretation Code Description Data Arabella rce(s) Supporting Document(s) Hemoglobin 10.6 g/dl 12.0-16.0 Below low normal [facility] The above 1 analytes were performed by [facility] [address] [employer], ,[place] [address] ID Date Data Source [id number] 05/03/2021 12:15:00 AM EDT [facility] Name Value Range Interpretation Code Description Data Arabella rce(s) Supporting Document(s) Hematocrit 34.1 % 37.0-47.0 Below low normal [facility] The above 1 analytes were performed by [facility] [address], ,[place] [address] ID Date Data Source [id number] 05/02/2021 10:54:25 PM EDT [facility] Name Value Range Interpretation Code Description Data Arabella rce(s) Supporting Document(s) Consults [facility] NKUUOt1qWhWUBhUh18/YVMnlULTbn3LjIJbjMQa5VEetSWCxQ5XnCOT0fD2wXWP0BGeAIfMiDvOjIVC9 lbm [file] QIXFH0XQHi== ID Date Data Source [id number] 05/02/2021 07:38:00 PM EDT [facility] Name Value Range Interpretation Code Description Data Arabella rce(s) Supporting Document(s) Hematocrit 33.3 % 37.0-47.0 Below low normal [facility] The above 1 analytes were performed by [facility] [address] [facility], ,[place] [address] ID Date Data Source [id number] 05/02/2021 07:38:00 PM EDT [facility] Name Value Range Interpretation Code Description Data Arabella rce(s) Supporting Document(s) Hemoglobin 10.5 g/dl 12.0-16.0 Below low normal [facility] The above 1 analytes were performed by [facility] [address] [facility], ,[place] [address] ID Date Data Source [id number] 05/02/2021 05:45:33 PM EDT [facility] Name Value Range Interpretation Code Description Data Arabella rce(s) Supporting Document(s) H&P [facility] CDLYOe5jYaOGMjEr81/HRBmyNVGsh4GkCCqoCBl8CNwiFVQqQ8LyVZC4dD9oRCD4SXoNDjUzFlXwGBN3 lbm [file] CARLOS A/jqKhrvaUfMd0Nrwh6zOGBUxc/4E51TTfzo6OVLROV6c7o+r1eD6YvEYAwV7vMf5w22iOqG74+SOUo [file] sDV493REBDjcNRVYjaRiKrZ75ZilTHPq6iywh6xFvhQqpnyeH3o+Y+5Dp+sqCA3YvWbNFfMk8zCf+Juan David [file] VhvtTb+6GcPCkGpxHnJ4MRxqAYl2Cng0MDVmMSn9cY5IKKM/7bTpe8iUyTpt9LbKnEC97v9dkJqaL/Kristian gJ3iaxtGulgk6VWyA1Jth6hBxP4zLpKrzV234qFXu+ y12u9l3cqaMD8VXPlmAmvYJPc/YciveKg6PRmyPw+uU+gU1HWGwEC5iukDrXRsRU81gPqJb/jnQ3+marketing analytics specialist [file] CsYXyA0l4NpBSfrepTqhiOPlmVklarwSokjbTz+ VTPp6r9VklFlqjOtUcLeF308XmvieBBH1KdfQqRXa3mD/M6aQRJbzNCOZpKzJoEkijPp+WmqBU+FpD32 F/X8AxiTlCvyC/L8/DDkz47QNJqNW3LeHJL5UnIW5XE+DmlEMO90c16W82P8Nr2GH+/Bi/OUD0sOrp+m s9HemVDrUou/3Jm2lxh9/I4cpeDia6FeKnQpNSGTHX Y8JVjqSxj5WESskvsTAuxwJ5s1fJzbbL5Vu4bQ+al+aSL4zBK9YnXXqjRwHvcrUUIlM6kimL9feddOeE 8jrETgxCJV3HTF4uW/nJpzf9HhOgAFtE/UeacFZyoSoT+6dzYV58KiOotYRzutg4TRraz7a2mPBz1IAC LGxXDRv+Js2K2suFvUP+Angel+97TJvPqL8js+Pnx4xM [file] EpueSfxPLlnL3Ydue2uaRx2cD+R/cq+half-way//Tyc9xYDvS0k02l91L1PmHmNvBX5tvdSUKQ5FV3Xv69gc [file] /tM+wLnJ9AmzfCqH3pt5fVLyMvajgKzLR+dUctH+FAST FOOD COOK [file] EjIOnwlKMkhbQnq+o9+98hANUY3m5Lcm8H3JkI j9gbD6Qjt+WbGnkNpJ9k1QvKT/AD8H21blvrI4c72QuDJTQtXxFOKllOXsX/alMHKjjW3x3+/s+f8v9v w4YVmjGLcfOmob4mC56j4NSXP1IfECm2Gcw5gLiS/vH+GcpfZZJUoT5CyPXpi792/7eulDYqPbXN56be EJQgAcR3L3xL/SmPCmytOo+vzyLAC/ljvO7NOv+gnq fxEIEDj3ylL2Glap+fR01H+e6yHJtpPMgIKcR7NK/d8W7GeH4Sr+NXlmSndI7jivxdCdYUmDFVwutcfG AVWzGXFSKjM7RCuLqCLfCkBok8+4zI9B3f2TyZfNtvQ2UR/UwY3kKzBMOddEVj/mizBVa7Ai2YhrX9M4 OJjOEOY2QKasUM5QpaKDMHeuTwDv/c7h6cx36EG2PJ 0i/MWTHJTvPp4Mvu71U/su3aYDVKmef8Evaz8L+X9R2WwO+YbmeF7Juz5RVwP3Mz0g4wOPyimGZJswzi wNMzlhv0ylabdn8sqHQSutsuHOYDCbroeva3WvKMUzi+ejmn1mFf2eNwqmwZqg//wo+hBymyseM4n3wb [file] JtxF/XiB0alFXBsS7BWi2ao+wYvxtqjivuQjdGSS7S8Wy2hu5DzzM9+vp site/IbxPa09DvQfVJEGR6qWQpJ [file] in hand+pyfUvncneC7rPTbi20DtB1B1P19Z6gPer80bbAb [file] C+wvo3c52q+uZarTY9BD8qOem0Zkf+meNzWsD [file] /H1CE+IUrEqxtaagzxUwhD2V8wRjg+6oqUk61t/right of way agent [file] abdifatah+ZQ5dmP2fZ4mdI0kI9VitVnrJ6vIVU1cLGMaQ4+m+v4i8QhhXXhK55OuHQoA8O/WYNX3ezU1X2Avc x8bKRvoUJ4Ufq5Uo6wNsDXEytaAvlqmz/ku676Gwon GMayAaYsJx9t+u/8EVoCSm2ACgBlaA9+Dlhz6Q04cUY67lMGAUj3ZmYRm8pxkkv9mpJqjkbVdDS6bTti O0Ar2BSBYrs8lbbPvy4VzAy/u0pukzGNbA+yLOJh/LV48zS48eD/p5p5aIe2DvhbSGhhKpsf0M+MNj0C nnTN6VByoUX2UGEbsGUpDjyNsWa6PQDZ8nDItkWC29 GtpT7G+ZJqzWVQ0GqgaIRJYDDxN3JVTK/FyZUWDyV/F3xrOpa5iUneqT4+Hxwe3JkJyJuN2qmZ/7LdL0 j6bjLDHhRvJiIaiGWP9Mo5fA9BR5pw81mLHPc1wwQgx8k00rCS5t37jRvxzgHuO5OkcrSLa++RQ9yxis WD5cEwHBQ7g+hGNjdoPKMB502ymnuX5cq0txmZAUOJ uKByLjoCl9CUk07puWzO+8Hb4i96acxQKXBV/zSUSzcWoBynsJBT5TnrwB7N/d4JGc0rSA/CaKwfxHmE enhS4aGKQ7p+K8zyrT8T8jhUBBpY2tio7PxZ63ohCVQrORIijjRsIiIeVeqPh924Zx4CSR+c6WvlJQym AH5YatX+78/OFm/omw7FsX/UpqYo2oLxgw1HRswciS T/1gKudHHsml7S6MCBEQCESU6ZxCqfahPilYvjGmYyT7+7hGYISdYArZgU8S8iT5BnHgNaeZ6YamiYOK axZ6UpaTJVjNKPw7+phkY6gtkxPYrkjahdPff0BTRKF1a+maLuvenlesedeC8DsCGbLUXt5De+gTtmVU DVZQDrv1EFb+mGLOq/SQMwNMFfLXdGvIy1E8qqIUt7 ydTHey5pkd30VtMTijzmvuNRGAwjbUUTqow5mrVe4oRIlI/z5ADicLlFWSSfEtiXVLFLZT7YsNr/IlFO detention attendant+L40kfwRxTTAQUyR2h9QzUQdIv7bwbcZ5QmivxeDG4NzfBy8iL2yVhWaGqE9yRhNIQ/IVLvBxln4I [file] Au69GFhUtEO/l9dfbx1ye+rzTRkNctlaVy2L3r+Nurse Emergency Room [file] DbHmBmN5UryYPYZ0XPevfCbI1VsMwXAQVBSpQk1tSSKleI8imlIdYLoFps6Km+4Bil1wBiqNAejIS/Carlos A [file] 4Ek0dx4+9fyeEGTqiTCgfjGykcZ/Kristian/z1qARRsvQSi draw in hand/Qe+jhlJCvmGPh6m6Amg/wg4oBID+edyLe+eFeoFbR5px0V5C3uLLeX+95Y2TF6DlxMFnGxgx2i/Gr [file] P4+94Ltnp7JnxBebBLBjhAwVMN8dTjkcNUDqTT [file] CARLOS A+dkM1MYm9zbTGHkUGZbiGs2Osa/PC1Hm0GaWlN9lPBUAxVnYZcXGUy1hfFhdSK0RS3CAmB1d9k6pqc [file] t5dtU+Qf2i9ySXniO6YozcFppLUZy3V1FETezl394MD+aYYOf9oO3S/qsBXFiMyLT3D4F1vSBthoK/Walker Co5b3pg+GKmZxb/vNMti+ofkByOXoE1aKCs [file] 10gR07bTwSZ59sc7JqthzODchCvTB01THXZLsSR/Carlos A epyqwJI0NuiRGSh+HCa/Rpmsukvla7rHj/02nLt0YL8Y+ny8iR339/g8dbMI01c0a6wialbUHZqSGnuj Z/4K4VFFAhjRZ78IuBuEvqq6hpABxRT8FJAIcaIxS/vuma+ij8ryWMh/zjVOZgte+mTlu6dnB5Mvoe95 oI8BMZfGO9OT23AKOV1swjG7FEpGQBvcOBxpzWBpX+ O25E888iClyxXQKn6hkjJppRYIUkl1iu6foF+8l5NOCiIYy8VGF7GXSHnhOTIv6QOulc7V0sAkWlhuou scze16pEzG1W8V52T2RffKa7N4vc4h7qIjv0XWs37sywXN/Okzi37O2D1xFruKvQp0GrtM+iezHE1ECP gfLECOWk+twwBrvHXTnUFeK2dSgGyoYEIMLZn4ln6a iZF4/thJxRNA3TpZxIYuk2YhbPkUgJ2LKJhrGpKPD20bN8IIZEzDEKVTljOkNrvDeWeyFJLTnkCGW5md dGLoWxnblVOjatRPzFDtR/F0nSftpdZ7Hm7kBU6kIdGz3JLIOlo4u0psifPZ07gLbLLHcDOZKqCAyQ9k mGeZPFKtVyT/Okt+I7oDomzbKR4VkoDJmMCl+Y0/ [file] 3rZ6/UbKaXViPSTSgzjhJBDXVHRNAJkMXgWwSkeVCCcnL8UdL+SERVOMECHANISM DESIGNER/2gezKtwZSt4V+whHYQ7aKQJ+uF HOQJ+e01s5y42R18bawLmld5tBRfnEoJ5/B80mYki0KY7oa39Aroq0IU9a2md/5/PAZQeo2mPcwlU+1P t/NU+LGkM9KSQA7fFfCWrPo75yx30+mO6m3MDc6EU2 nZhzSDO91TwfWuZNQgdnPggxiZ7h422/c5mPwrbK8j0BNmsV5zuCyBTuB87/7GcHe5q2aJuw2sRGiK0s 8jqnXXpaJ1428zfp9/ft68YgI9f32zdUvVXv/gax75Gk9f1WocAJQxTCnZ+xcpHRTZq3Pr3RG4VFwhqG oD//vpWSx0Zt/FcybfHLTmotFHHbWMI9UXYXCiR/Bt ZPKBlnluczo2MntXr5NQo/swZ8pVy7km9NYMAPrrREG9amkbkJksfViX+oAyhDIgwq4PwQfcxP2DnLqG BukDZnXcqECZKWjMYBSanVRxGzkHl+NU4VXYCI3a9I3dzhAlVsRLHUEqnhHEy5hBd5FjYz6V/Rmbp92K ZCRMCVRbBHSQ4T/A1WN4eOBYGKwKGTDcGiP3pzLxiI [file] BRICK AND TILE MAKING MACHINE OPERATOR+Ao2HvWKC8t9FzRI0jBzl9TG0DFiCglowSkXzwYb [file] tgST7gugWCfpQO6zRjZ/u/va13+Electrical Instrument Maker+wUbKa497Tm+O95kBSyrpGrrbbmopr6Fy3wqE9q2LEXGyQAQL+ [file] Xf8Y4vVz/fR8G3IT//6H/pXf//airport maintenance chief/1MOba93QdX3es [file] Carlos [file] y0LWpNCXs9ywnPaSfuxxm9R96w6wYu1aCwCe7QMn6btOY34bWsHC6t7Ejh2Jx2wIHamJzhMUmJFz++BRICK AND TILE MAKING MACHINE OPERATOR [file] AgICAgICAgICAgICAgICAgICAgICAgICAgICAgICAg ICAgICAgICAgICAgICAgICAgICAgICAgICAgICAgICAgICANCiAgICAgICAgICAgICAgICAgICAgICAg ICAgICAgICAgICAgICAgICAgICAgICAgICAgICAgICAgICAgICAgICAgICAgICAgICAgICAgICAgICAg ICAgICAgICAgICAgICAgICANCiAgICAgICAgICAgIC AgICAgICAgICAgICAgICAgICAgICAgICAgICAgICAgICAgICAgICAgICAgICAgICAgICAgICAgICAgIC AgICAgICAgICAgICAgICAgICAgICAgICAgICANCiAgICAgICAgICAgICAgICAgICAgICAgICAgICAgIC AgICAgICAgICAgICAgICAgICAgICAgICAgICAgICAg ICAgICAgICAgICAgICAgICAgICAgICAgICAgICAgICAgICAgICANCiAgICAgICAgICAgICAgICAgICAg ICAgICAgICAgICAgICAgICAgICAgICAgICAgICAgICAgICAgICAgICAgICAgICAgICAgICAgICAgICAg ICAgICAgICAgICAgICAgICAgICANCiAgICAgICAgIC AgICAgICAgICAgICAgICAgICAgICAgICAgICAgICAgICAgICAgICAgICAgICAgICAgICAgICAgICAgIC AgICAgICAgICAgICAgICAgICAgICAgICAgICAgICANCiAgICAgICAgICAgICAgICAgICAgICAgICAgIC AgICAgICAgICAgICAgICAgICAgICAgICAgICAgICAg ICAgICAgICAgICAgICAgICAgICAgICAgICAgICAgICAgICAgICAgICANCiAgICAgICAgICAgICAgICAg ICAgICAgICAgICAgICAgICAgICAgICAgICAgICAgICAgICAgICAgICAgICAgICAgICAgICAgICAgICAg ICAgICAgICAgICAgICAgICAgICAgICANCiAgICAgIC AgICAgICAgICAgICAgICAgICAgICAgICAgICAgICAgICAgICAgICAgICAgICAgICAgICAgICAgICAgIC AgICAgICAgICAgICAgICAgICAgICAgICAgICAgICAgICANCiAgICAgICAgICAgICAgICAgICAgICAgIC AgICAgICAgICAgICAgICAgICAgICAgICAgICAgICAg ICAgICAgICAgICAgICAgICAgICAgICAgICAgICAgICAgICAgICAgICAgICANCjw/tKEcH5qxhIRsjwC6 X3ybSp7IAm6GRP8wi3EgVTOrWJefjlBoBcbAOzNrPELfWiqUSno0KWjeXG8KsXQqU2UzY1UqPHqtQQ8N CFCsVQQisIIsAZIvRVMoGeC9EVJiJAqxTS3AqVSwYF aeGYYgXIZeUlWzDFIxHDMqKZQcLMVvOKUCOUFuKTPmOzTlSMLdDUWiPEooYWETGAO5BLOnMoCrNKgeMJ 7Gn0HhgOQ9JQg+Sv8EBP6gn0PtXAh3SOZcVL2rpc6FRNtHIzUcG2SbcxX1KWI9BTQmWn5LBYNuATOqlN B6LAAzZCIZVtInA6OsnH36GPWFNg1+DQplbmRvYmoN JcG5FSJwb8SjNLo7BW7MILMmGKl6wVJxCBUDLFU5QNFleJthnRAWYDXhaMHaOG5SBCJ4ZRiuQaScLqAa TDQmTUngPXKHUNrUQvGmV3Vas8GkBnV3OOLlXpKeECwcATXwYnB6CN15wUhlHY3NQFNbDAGgDV87DFF3 XQCrAv5EOh2NObYvEX8cyl7DNNToGWWaVsuYTln9MB euEC1AnYFaE9TqeVAeb5gSZnQeK7OZPNMfDKBoIe6HEKFxBfVyMAOqLPokBK1dOFKjRREZqEhxcdD8IH 1QCS6fqmNuWA6XXiWpGk9zEe6PNtBlU9UdJ7YmPTKpQIYUHWyzKK1DOXqcZC3lYW4Kf1IVpSIqvI5erv 8ZCOPaQXXcAsardq6QSepeE9A4gTahYOBsJZNtMMNS AIjzNL3DNBOjOWO7EUC3SiYbPAOCUzVtS64qNN5XQ4Ghd76jEuM9JXJdMlLsDMeiKG32aYpvkwItdHYa aSdfUJ8YAi7+DRqkthXdKfbNLzvwZHAFTuOdLLoGRoSbMDAvCELkAVToXaQ0YsMuGx0EDXIpFRKvURNo JfDpNQNhAJCdNEmtWREbFdM6DFr9AJEmUOLuRV1VHf XhVUF0SvshPXHcRECjJBRyfj0AYQKiUNZaRXT8AxIbPWMlGOMeAWxgXAAlIGKqKZB0KXGtYLIpPC8AMl YbJDAoGXMvPUxeVJMuBGCezp9EEEWbFWGmWhF1QYSsIJXfDCKlOVvaPCXmCQT6VWo9IHPaHDGnKS0NWi InEAJcVSahOCNkGVXzITVtxi8VZMIfNOKhKMZ8SaVb QLGyIMXiNLgaZCQzLTQaUrI7DDDbDWIcHJ8LFiTtTDHaSZZ5KrTkUVLwIDFxgm5HZSLxROQmPtA1NLAa XFNbWJMhJPvuBURbLJQhAqP1XZUiAGMrCH5UJoOyEOQrHIWbKDWvPJVsIBFdon8GZIMkEDUgVdK3ECDj IWSyUJJfBTdxYAPxSJJiAFC9GRLwZXTeZZ0JCsEqEG RvQVXmUAGxQSScJIFkna9NFWHkFCYuRrGaDXWmGXJzMMAhZEpuBDVeXSJ5NpViTTApETAkKJ3SPsTuHE IeHSrqQFgyQBYmGLBhhf4OSJIjVZDxQqAbPAOoWCGfSOLnCGlhEWKlXWK6Rgw1OIZbTVTjVI8FEqEvZN DwVOc3RXorQIInSKCtqk3LXFNzGBQvFIh2ZqWlASOd GFAdSKytTGXqNIC2LMV3CXYvQIFqZC8XZhCnQREbITw7PTviINNbSFYbis0ZFIBfNBQaJYF5WKTfTBTc MATnVSazJOIkDTHnBhgzHBXpPXUhQD7TObPrHADkCaKrFkGtIAKqLETvyj5NOLAiTDYiOBFyUbApXZZn JUUtTArzKRHqKTHoStC0AQLnCDPuSU5MEgHjJUOqBc P0SpRhVZJmDGIfyg6JQBZgDFBlOjf9UuCpWTSqPLGeDQvlIRImGUJgPPlqSQBeQSXaMJ4JXkVkBFUaOw KjToCeQWXdQPXher5YYXJjIKHzEMF4GjJxMQAxKXYiGBloATOjVQX5FJCsMIKxCMDxJL3XYtLlFLBrGr UiHfKxVCFaFMDgem3IKLHgFMXoBeC1OFPeRZOhSYCo JPwrXZGbDBH3LFNvYYWeCBXdHL3MFeFmZVJ9WlO4EYSnOBDdDMXjft1CLIFiDpGhEwz4GJSnTVFmUETw FLkeNCCcBhU3QXT0QYCaUUHcKR7TFeDlOGH4Ffi9ItEcGNFwHPYtmi1YGOAtYhMkSUW1KcYtQGPvOMCd GOg1fiJvtGIdRYn3SY9OJ3TaclBeQLcPTd8Wo363XT V2WFXoWj1LN7ivDb1oZXFgRBUKQv4ESLg7KtUdEvLnXuXnJ7M6YgO4VXGeUAB3WKlhZsXyZPDaO5E+ID shCDZjTFIbVrPdNIB2WYmyWXYrWzntIWQkKRLkYmYnCP6yCJXRIr6+ICnqjVYsjQjmDEZGIfF2Shp0YX qFOeQwKW5GOLd= ID Date Data Source [id number] 05/02/2021 03:30:27 PM EDT [facility] Name Value Range Interpretation Code Description Data Arabella rce(s) Supporting Document(s) Progress Notes [facility] YHUUPu0rOkEBAoYf92/HNZvbYYSak5FlLOovUPk6IEskSEHtE3CsVSA8hF4gBKV3DGkSTzVqOnJdFVI3 lbm [file] J6xeDqKPjqHvbpNL6FURERU9GDOx== ID Date Data Source [id number] 05/02/2021 03:11:58 PM EDT [facility] Name Value Range Interpretation Code Description Data Arabella rce(s) Supporting Document(s) Nursing Note [facility] MRXZQk4yIiULSpOg61/JAPpqSYFfl7XtDViiZGc8HEfwEMUqA1WmXZR1jN7mTDA8PTiYHhBdFmRvMKR8 lbm [file] ByR2XFXaAIJlCSVwAjB+QD1zWZm+Gz0Fp2UoylO6vqSkHPphBWk5Aj7NTDUFS4HIIh== ID Date Data Source [id number] 05/02/2021 03:01:14 PM EDT [facility] Name Value Range Interpretation Code Description Data Arabella rce(s) Supporting Document(s) Care Plan [facility] QVCIOz0iYjOFQbSs86/SWAmvMGGje9PuKLqiHLq5QFxpMTJzG3QbATX0qC5eIKK1XMzZQjRsRdMeVPV3 lbm [file] ICAgICAgICAgICAgICAgICAgICAgICAgICAgICAgICAgICAgICAgICAgICAgICAgICAgICAgICAgICAg ICAgICAgICAgICAgICAgICAgICAgICAgICAgICAgDQogICAgICAgICAgICAgICAgICAgICAgICAgICAg ICAgICAgICAgICAgICAgICAgICAgICAgICAgICAgIC AgICAgICAgICAgICAgICAgICAgICAgICAgICAgICAgICAgICAgICAgDQogICAgICAgICAgICAgICAgIC AgICAgICAgICAgICAgICAgICAgICAgICAgICAgICAgICAgICAgICAgICAgICAgICAgICAgICAgICAgIC AgICAgICAgICAgICAgICAgICAgICAgDQogICAgICAg ICAgICAgICAgICAgICAgICAgICAgICAgICAgICAgICAgICAgICAgICAgICAgICAgICAgICAgICAgICAg ICAgICAgICAgICAgICAgICAgICAgICAgICAgICAgICAgDQogICAgICAgICAgICAgICAgICAgICAgICAg ICAgICAgICAgICAgICAgICAgICAgICAgICAgICAgIC AgICAgICAgICAgICAgICAgICAgICAgICAgICAgICAgICAgICAgICAgICAgDQogICAgICAgICAgICAgIC AgICAgICAgICAgICAgICAgICAgICAgICAgICAgICAgICAgICAgICAgICAgICAgICAgICAgICAgICAgIC AgICAgICAgICAgICAgICAgICAgICAgICAgDQogICAg ICAgICAgICAgICAgICAgICAgICAgICAgICAgICAgICAgICAgICAgICAgICAgICAgICAgICAgICAgICAg ICAgICAgICAgICAgICAgICAgICAgICAgICAgICAgICAgICAgDQogICAgICAgICAgICAgICAgICAgICAg ICAgICAgICAgICAgICAgICAgICAgICAgICAgICAgIC AgICAgICAgICAgICAgICAgICAgICAgICAgICAgICAgICAgICAgICAgICAgICAgDQogICAgICAgICAgIC AgICAgICAgICAgICAgICAgICAgICAgICAgICAgICAgICAgICAgICAgICAgICAgICAgICAgICAgICAgIC AgICAgICAgICAgICAgICAgICAgICAgICAgICAgDQog ICAgICAgICAgICAgICAgICAgICAgICAgICAgICAgICAgICAgICAgICAgICAgICAgICAgICAgICAgICAg DBTjWVPcWDPpOOUiGQLeRZPdHNZqOXAsOLTsJBThCNGyCLFlRNMhVPe3B0svOHEcXEVwZY8mAFf8Wl9+ ZBlFDgCzWQV1qtIxuW5GFU5ax7ScQBwdIORpg2HbYB l8NK8AYFHsLJkkXY8ODKqlvd0USIGnAPLacVQZf5nfSvDgAFC4JSQhWebdLO5PDVPiL1cjvmNrRGLsGS VSGG8XMyLdD2OpmC61HGIOEx2+VTffgoGaWdoQSbO8ZYQdr9HbCOh8HM1JHIBlVsizk5VvFnRvLFCKER hhOT3FMMG1HAB1HIWcFd5WZOLxV067coHtVE5QFe5I FpUxQW9deb8EVsTiTRSdNuzDOvl6FRvlSG8OpOMoMHuRLAGkEXSxIG6cRfuxGEkdhfSrKUlfb4C1nEHm VWXPDmYwjGM4RvN6EgXzXxKpULI5UHXpFU3gJAsdCB7EIIZ5IZpxCILdYSIlM7aQViWvSHwqTSYldNvn HB2UZeBnV0LujnCyjFXgDDVfINZYPy1+DQplbmRvYm aLJtS8YYFkx8VkDSt2QV6BDPBnVUeiQG0KFZJqqI7sCThwRG6QCnVoXhHcDUBVPoXsG29kxETuXGa1P4 VtYmVkZGVkRmlsZXMgPDwvTmFtZXMgWyBdDQogID4+ID4+XQmzVN1KFWsmhpMmAYOhGc1ZSJVkPTYxSQ 0hTBBmYAFkG6R4rZjwGYVEQoBzW0tvcbodRU4tUZJh D780mDtsapEkRQH0BFZjQu0KAYIhDSF7OVRkpXHsBhKdSBQMUKhiMD0ObZKuMLJ3zM2sUMkkWNDuNCRx Y0uFSiPrrOtqUA49iKvitzVmxXEyNWj+Fv5HWA8ic3DySJh7rqWsEXmyPFZ6KSebBYFcZESdKGVcSGH5 GYA7WWVXUkAtZZRvIYTlRIljLXSaAVTqad0IAKOcWB ZwLCSmFmDcHHQnOFZfCGslOYSlMNVoFtIjVYYaXAFtQU1FOlVjZLXdDEKnLThwXELaEMMcrd3CAPRcTC FwHTfyOWDkZOWcWHRiNQhzGVLbFBLlRTTgKIZaNMJaTG7TQdAsQKVjUMF3SBDdNHVnLHUmxl5BKNTiWX GbCkA6OQZsCLSuFRDiOMcyPSOiWEAmSmM4UQMtMYXd YZ5JOpYwZHRvQWLwExSnVPRhTAPizc3XWSIgDASdVMVhAiJnAJFcRTTzLMrnHRSlHBO1JsL7OOCwJSXr MU3THqMaOZMhQPY8URJpVXYcPGGavt4ULSFcTRVzPwI9MLHlTKPhSHGlWKwkOESwIXX5OHb9FUTaBJLh JS3TOuOgRTFgQBh5LMtsYQQrQJHxtv1RBDYnDPBdPt k7ZFAnGETgHVOgSXtfJWQmCZR4NRJ1EIDzYHOhVH9PTsVhIFQxPYiePGFeMUXlMLWuhm1QMRYuQSQeQH Y5FVJaXANnEWKcZLwkCDEvCKHkDZJrTQQiWIHxYW0WYhWkIAAqXeEmGNhlFWExKCVpfo6VFGWhQNAaPG K7XNGzYHRhCQVcSDatAJQaEAVxAGLpIVPoJFFrIY8W ZpGbYBQqOhRtBaKaGAIyJATlav5CQYHlNAGbZzUsRNWtOHBlHNWbUAehNZRgBGUqKSb3AUIoSAQnYX2H WkSyCLayANALBut6EMuxN1g1QLPmYS5ZR3Mok5LsIgteMOULMZyuCJ7zizRcOJBkJr0JX2hGNgd6IoU5 JyZkNpbgKBYfFZElDON3HxF6YbEuPIA6HsO4MC7fTZ IdHXC9CZZgX7G7OLW4YkA8IJdpEfbuHYWyJZHpLtsoBfXbIS9WEt5NNvT3OJA1iFHzMp0BWlB1IcAAJu WcXP5EHKb= ID Date Data Source [id number] 05/02/2021 02:32:34 PM EDT [facility] Name Value Range Interpretation Code Description Data Arabella rce(s) Supporting Document(s) Nursing Note [facility] BRJRNh4xHyUPWiVx59/FFGjjFCRzk1YfJPdeXZx1MSgkPTNaM9KxZFB8tQ7hXZF1XRsYSgEoBcLjGVC5 lbm [file] Lb7SYpR5TRZ6nAQkFo0PYmU3LEJOLnYoWO1FOCf= ID Date Data Source [id number] 05/02/2021 01:51:03 PM EDT [facility] Name Value Range Interpretation Code Description Data Arabella rce(s) Supporting Document(s) Progress Notes [facility] OGLDCl4bVgNGHuCx27/MNAczWOJfk8EzAXhfMDw4XXivNZOoL6LaUST0hT9rFKQ8BZvFLkZzWlJePIR5 lbm [file] u6MQ6KUMT6XPUgHd3DBJYtNV4BUKArPLAhJCKAVwOo RHMuQtNhEPNxVARQYUphSSZhJ4OnSPO9LFKhUz8TPIOmSF5NARZkZvDiUFS+Rb8HWASbEX7vjiKvgLA3 STRIP FEEDER+Mf8PMUQbLUf2R2J0HZDzOSl3Y3KBR6ITUQMpWXxeEXiqMLTgYUl1C9Z1HXTkS6CCW3Ieldsqif8+ EL0NI71REZZfTGo3V3U3wVBpD4K0mFhUtRJ3XC9GWX 4RwVe3tBTbeV2+QX0IX8IAYvLjVTx9D8J9kETsB7R0bYlGqRT3DO5SRL8IgZXqANUgapCgDo0cC6XWNG aIJtQXZLH0SW1KiDPpEN6NrRVIW4TsaJQwOn6iIBkfxUXihQ4mOt0hPFgkIB9NKvRBBEuHEJM0GD2CgQ WzFN9VcWUCR2EmmQJfSq9eCRdhxIObsw7+PU7XNORm Ai6DRz2+WChmieHkGewEYiL0JFWab1BzGQm0KV4SFB3hjEplUYV9Vv3UpTJ0zHBdD3zCUW0IdBZiG55m zTCwZPKbWg0RTjZ5kiFtlE9XHR76iPVzv5C9IOKjM0feNVqfo45fLAzxKIxYUT0yWEDNCYqePTuwJOL7 VdUkradsPSQvFl7KZnVqHRf5fZ9vmSL2SGA7StfpaC FtGLokLcWmLrMjKtP7oYzgyme4HKojSR1zHAulyzkzBJJcZqj+UKgpZNMqHEKgCwmCFADnbK7quoN0as HgCUrsaJIbSt6ve4h1TgrfZr9cOi0fDHm6SdPjPhAnGGTxEx9mtS52ITkeuiJpGz1PRbEqYAW4J4JsCz pSREY+OCdmYSrgbUg4yMVcPAFxKz5RJKIwJKMbXEAk ICAgICAgICAgICAgICAgICAgICAgICAgICAgICAgICAgICAgICAgICAgICAgICAgICAgICAgICAgICAg BDVcKCFnWBOnXINrPCOeQIJhANVbEDOoEHVzOPZvPM6UOWOyFMViXPXsJNUhMXMqZZOcCJQxNNWbZTVo ICAgICAgICAgICAgICAgICAgICAgICAgICAgICAgIC YaVPDiHEBtTPOnVGEdIDUbZQOeQTIiGFYcBKFsZDLtUKEkITUfCRTrHF4KPFGrOVAjZUBcRDGqHLMnLE AgICAgICAgICAgICAgICAgICAgICAgICAgICAgICAgICAgICAgICAgICAgICAgICAgICAgICAgICAgIC LnOGNsWUJoZQWlXYPgJIDdTHKiMXYoMR5LPTQeGNBp ICAgICAgICAgICAgICAgICAgICAgICAgICAgICAgICAgICAgICAgICAgICAgICAgICAgICAgICAgICAg OACoFKZoKKPeOHPpIFEaZPFdCEYdRYMkRIMvCPGtPNUiEA0UNKEgVCHyMRLfXIXcSMMpFUNkYKFmTRIt ICAgICAgICAgICAgICAgICAgICAgICAgICAgICAgIC CvVUKkECBgTTKiWVSuXGBiXCKqBGBhQSIfOQDrZLGhKYKqHNTqMMAtKENmAB4EJTBkBEXcZWXqWGKmLC AgICAgICAgICAgICAgICAgICAgICAgICAgICAgICAgICAgICAgICAgICAgICAgICAgICAgICAgICAgIC FhZUFoVLWsUYDqOBGuKINgYZWwEEGvCTBjNC8OIJPo ICAgICAgICAgICAgICAgICAgICAgICAgICAgICAgICAgICAgICAgICAgICAgICAgICAgICAgICAgICAg KNTzQBKiQGNgTUJeLRZlNMVpAKEvVCAwROXgFGXpEFGlXFFvJS5MCHYwAUIhDAOjAWQhSCQgDEWfRAOe ICAgICAgICAgICAgICAgICAgICAgICAgICAgICAgIC SjZHUtMNKuSXFyFUCrVGUlJYXcCURzNCBtMFVrJMVdKWNlEBAsFOJzHFWnOOXcBB4GFCThIHNuFLBpHW AgICAgICAgICAgICAgICAgICAgICAgICAgICAgICAgICAgICAgICAgICAgICAgICAgICAgICAgICAgIC JhBEWvIYXeXYBaUOFsWREeIVHhHAVsCVIaNDGdOI3R ICAgICAgICAgICAgICAgICAgICAgICAgICAgICAgICAgICAgICAgICAgICAgICAgICAgICAgICAgICAg RVOcPXSlVZGkHXXcMYScTCKqCQTeLVScFBKoLVXnOIBtBWSeSJLkPQ7IZU36nHNzz7C8VRZkVX0atlh/ Do8ZHFlfovZbkIJqAD7TNrDfSS4gvo6BNmJsSY5vvp 8ATOnOBoUjU8P1lVLfAHKdPMNKYqZaR02xYPwiRl36OHcmCQJhGoNlVUg0Pz2ZNdLjZ1raOHDpDpM5DZ OmXpWiXEuiWJ4Qn4DbwQHkWKm+Hg0GSK3ul8TeEMvhZGZiBS9drr1UYQvYPgSxT2JyqdW6DCF7HYXfNu 8CSYWiAWLanJLgLxRlTYPMVdSqL7JxeT90OAMDOi9+ OZndsrRxSniMNrH7TLTaw0UrDDs0WG7RXXZvPQx6yLUmVJQmW5Umg4WyOk39LACtVzodKchiWlVDABrk JFY7OFbzDhIrKtWmDIKkVLh6VlGDBZdGNvXpY9Nhs7KsZnG5PEFmWaLrQWffHWVzWtY1FD69eEiiMC6G QQSoQUKyFO01GKC8BXLsZv4TXx2WFpLgQP0nkt4OQf ujRQGsPpvFYtf1VFmtOE2FhYLuD4UkiAMhb8oVApXmK0XSPFJcBZWrQv8YREAuEwEyEGRuDZhvMJ6dYR OeTPODqZjjeyQ0MP3IIO2ykwSiKU1FQnMaAq3zOb6FYyVrZ9LgG8BaYHTfNHLUIImnEK6XCVxiSV8tFO 3Ya9PPpXHprQ3oij1ETITtEBFuKomgct6QZuzfT5N6 dPxhLUUyOgLyZDJNQJjoIR5DLWFkPKG8MXGjNGBfJHNTPgJsO13uKR3OY0Gdm63sXeZ3QBHwVhVxLTgo FH11qBjxfmPzzVJgdVxcHN8XYx7+FUzdrnZsQanLSquwMEWRSwQrRsbUZeQmURNnXLXoWNBiOfH4LiVh He0BMADmAGDiWKXhHvYoKWPtDRBjDNblEVSfYXBkTH U4FAFsVKByTK6LNrBfLFHeOiF9HnnsBPCyZBZedk8MXIWsRNTgOVW5PcJsMKGlYAOeRNilXGZxNONqLt N8KLFbXJMrDH0FYmMiRYVoMNQ3EGSvDVVeCQRqxy3VXQJwJUGwJgSfHGSuNQCpRKCtFCmcINNmSYBlQa RaWZJeGPMiJD5HGpXrLIPdPWH2ZLvkSKBvYZXysh9H OXTsYQXdUWk0BuLhWTMtDWCnAOumQRMkRPE0AUFlYGBfMVXbXK6DUaMtGRIiUPHaBhMlXENbNQNarg3Q XMThRYVbWtE7ZHWgNMQsKDRnAEovWVBgGMN9HFbzAIVpHFQdLI6VIoBdVJPfBTawWVomPOOaNGDtzq3S NJEeXYExCAKhPTYdAGEjUPMkTPppGXRkXNQ3XGx4DV XaUZAlOM3KToVbGPFrMXa2SgwcNKZcOVKmho8OJXLnGPPzNYQuZFWnJCFpHGMhQXfyHBNzDHO5Vqb7EK BsUTAsWE0UVtPaPQNsFdP6OdhwBEPfXBXtzk3AWQMzZEKaDCtwFNMjCEKhGTQfBMjkXQNcCZWdZQu3IF MwWVUlBI3OYhAdTDVpDhA5JpepLDUePHQxwl3ZXZGl KRAgAwl0CcDyVVSbNYIzJLdySLHdFDMsRFC9NOHhFYBxYT1EFcMkXGQkOuEiRlnrNWCpIKUdti6EwLLg rUvudm7BPSvKIh5FhOryQRB1MSrsIp8asUNfKwNkIYGMXz5UbfIvSDDnYTAKJLrkYNZoOTW9DtiaVJP6 CRMmCvGjLJBpZqQ9ZQUrCgKcFhAdB0W3HrS0FTGmLU OjXLmnJIRtZUN0SCKnAOC7VlRtXaFbUZP8KTg+TI6zDDb+Cb0Rd2WnncY5efKkUSbrHhCuTd9UJYGEU8 YNCg== ID Date Data Source [id number] 05/02/2021 01:17:00 PM EDT [facility] Name Value Range Interpretation Code Description Data Arabella rce(s) Supporting Document(s) Iron Saturation 27 [facility] Iron 97 ug/dl 50-170 Normal (applies to non-numeric resul ts) [facility] Patients treated with metal-binding drug s (e.g deferoxamine) may havedepressed iron values. Total Iron-Binding Capacity 362 ug/dl 250-450 Norm al (applies to non-numeric results) [facility] The above 3 analytes were performed by [facility] [id number], ,[place] [address] ID Date Data Source [id number] 05/02/2021 01:17:00 PM EDT [facility] Name Value Range Interpretation Code Description Data Arabella rce(s) Supporting Document(s) Ferritin 9.8 ng/ml 3.0-388.0 Normal (applies to non-numeric resul ts) [facility] The above 1 analytes were performed by [facility] [id number], ,[place] [address] ID Date Data Source [id number] 05/02/2021 01:10:00 PM EDT [facility] Name Value Range Interpretation Code Description Data Arabella rce(s) Supporting Document(s) Vitamin B12 324 pg/ml 211-911 Normal (applies to non-numeric resu lts) [facility] Folate 21.37 ng/ml 5.39-9999.00 Normal (applies to non-numeric re sults) [facility] -----Interpretive Information-----Folate Deficiency: 0.35-3.37 ng/mL.Intermediate: 3.35-5.38 ng/mLNormal: >5.38 ng/mLPatients routinely receiving high-dose biotin therapy may show falselyelevated results. Additional information may be required for diagonsis.The above 2 analytes were performed by [facility] [id number], ,[place] [address] ID Date Data Source [id number] 05/02/2021 12:27:00 PM EDT [facility] Name Value Range Interpretation Code Description Data Arabella rce(s) Supporting Document(s) Hemoglobin 9.5 g/dl 12.0-16.0 Below low normal [facility] The above 1 analytes were performed by [facility] [id number], ,[place] [address] ID Date Data Source [id number] 05/02/2021 12:27:00 PM EDT [facility] Name Value Range Interpretation Code Description Data Arabella rce(s) Supporting Document(s) Hematocrit 30.7 % 37.0-47.0 Below low normal [facility] The above 1 analytes were performed by [facility] [id number], ,[place] [address] ID Date Data Source [id number] 05/02/2021 12:25:00 PM EDT [facility] Name Value Range Interpretation Code Description Data Arabella rce(s) Supporting Document(s) WBC 5.18 x1000/ul 4.80-10.00 Normal (applies to non-numeric re sults) [facility] RBC 3.71 x1Mil/ul 4.20-5.40 Below low normal [facility] Hemoglobin 9.8 g/dl 12.0-16.0 Below low normal [facility] Hematocrit 31.1 % 37.0-47.0 Below low normal [facility] MCV 83.8 fL 81.0-99.0 Normal (applies to non-numeric resul ts) [facility] MCH 26.4 pg 27.0-31.0 Below low normal [facility] MCHC 31.5 g/dl 32.2-37.0 Below low normal [facility] RDW 15.5 % 11.5-14.5 Above high normal [facility] Platelet Count 213 x1000/ul 130-400 Normal (applies to non-numeric results) [facility] MPV 10.0 fL 9.4-12.4 Normal (applies to non-numeric resul ts) [facility] Nucleated RBCs 0.00 % 0.00-0.20 Normal (applies to non-numeric r esults) [facility] Abs. Nucleated RBCs 0.00 x1000/ul 0.00-0.02 Normal (appl ies to non-numeric results) [facility] The above 12 analytes were performed by [facility] [id number], ,[place] [address] ID Date Data Source [id number] 05/02/2021 11:50:00 PM EDT [facility] Name Value Range Interpretation Code Description Data Arabella rce(s) Supporting Document(s) 01 - Product ID Red Blood Cells Health system 01 - Unit Number [id number] [facility] - Cross Match Compatible [facility] - Status Info Transfused [facility] - Product Code [id number] [facility] - Blood Type A Pos [facility] - Issue Date/Time [facility] - Specimen Expiration Date [facility] - Volume 341 [facility] The above 9 analytes were performed by [facility] [id number], ,[place] [address] ID Date Data Source [id number] 05/02/2021 05:35:16 AM EDT [facility] Name Value Range Interpretation Code Description Data Arabella rce(s) Supporting Document(s) Nursing End of Shift [facility] LRWGHp6dEcUUCmPh87/AFQsxWWAsq4EvQLxyCZd8EAqfDXIyB4JeGCR7nK4bBRN5QEuTCjUrIlTnTRG3 lbm [file] ZrfBVQZr+vsH48/Oda1iLu9ihZHeGvoA/zI8/p [file] ICAgICAgICAgICAgICAgICAgICAgICAgICAgICAgICAgICAgICAgICAgICAgICAgICAgICAgDQogICAg ICAgICAgICAgICAgICAgICAgICAgICAgICAgICAgIC AgICAgICAgICAgICAgICAgICAgICAgICAgICAgICAgICAgICAgICAgICAgICAgICAgICAgICAgICAgIC AgICAgDQogICAgICAgICAgICAgICAgICAgICAgICAgICAgICAgICAgICAgICAgICAgICAgICAgICAgIC AgICAgICAgICAgICAgICAgICAgICAgICAgICAgICAg ICAgICAgICAgICAgICAgDQogICAgICAgICAgICAgICAgICAgICAgICAgICAgICAgICAgICAgICAgICAg ICAgICAgICAgICAgICAgICAgICAgICAgICAgICAgICAgICAgICAgICAgICAgICAgICAgICAgICAgDQog ICAgICAgICAgICAgICAgICAgICAgICAgICAgICAgIC AgICAgICAgICAgICAgICAgICAgICAgICAgICAgICAgICAgICAgICAgICAgICAgICAgICAgICAgICAgIC AgICAgICAgDQogICAgICAgICAgICAgICAgICAgICAgICAgICAgICAgICAgICAgICAgICAgICAgICAgIC AgICAgICAgICAgICAgICAgICAgICAgICAgICAgICAg ICAgICAgICAgICAgICAgICAgDQogICAgICAgICAgICAgICAgICAgICAgICAgICAgICAgICAgICAgICAg ICAgICAgICAgICAgICAgICAgICAgICAgICAgICAgICAgICAgICAgICAgICAgICAgICAgICAgICAgICAg DQogICAgICAgICAgICAgICAgICAgICAgICAgICAgIC AgICAgICAgICAgICAgICAgICAgICAgICAgICAgICAgICAgICAgICAgICAgICAgICAgICAgICAgICAgIC AgICAgICAgICAgDQogICAgICAgICAgICAgICAgICAgICAgICAgICAgICAgICAgICAgICAgICAgICAgIC AgICAgICAgICAgICAgICAgICAgICAgICAgICAgICAg ICAgICAgICAgICAgICAgICAgICAgDQogICAgICAgICAgICAgICAgICAgICAgICAgICAgICAgICAgICAg ICAgICAgICAgICAgICAgICAgICAgICAgICAgICAgICAgICAgICAgICAgICAgICAgICAgICAgICAgICAg BWUlEIz1R3piGEAjNUZeBF8aNPe8Bl3+DQoNCmVuZH R4erCtqX2VDU8qo2FvSQpkUUDrh3SoEXe2UP1RJNRfFPigYF8ZXFcytp7GFAGpNLLjnWWBp7nsDhMzMN T3JTTyJzcqBD5LPAHaC5ihegGeAUWlLCGWXE2UAvMbT2YjbW56CAAJMj0+RUeoomByZjnBMyU6JXLxk4 PmOWh9KK3SMKTyMburg9OvRdMdHOJDKDryXI2BTTH5 GQL4DJIwQw7EYYQxI461xqOhVT2GOv7PDrPiPF5ody5AGuRgMGTpHorOYca2ZRoaAI2SsRRgUCjZrGDz xG5sSMCxORXhLtKStXizcZFkcGWOtRPxIOZaYVtjbwFvWYbfIWOYIHW4RHmrHmRqWlLwTJFbPNneKfDI MMuZRfDpM5Mgo6CfCbA4UDLsLyNpFEolJQTmWqW0QN 67xWyyPU8NVSVmCIIbJO50MSO8CSWoXc9RBy1ULiHiUM5zbd7YLdiuGTZwLpfGNmr5EAyuCA3OlQZsI3 KwtZFtb7oSDeZiM9BNNHQqQMSlPx7KZVRzAsLdGIIdDMmcET7cZNPhWFMHsSwmoaF9GI4RYY8rtaFvFW 4CBtCqGv5bWn7RMyIpA3QkZ1TwSBLyBDAHTBqqUN0M GWgfXD4pBU7Za6JGcSVzaC2bkr9BIUZlSPGzXefapn1RRvppV3B2aVbdQQWqOpFkLAKVJDkmDL1SRUCk RXR1VWCyKIFxLNPAPxYvT43nSG0YH4Qji21nBsL8GNYuCzKuDRbgBO87bKypaeOkyZSuvMkhQZ6MNn3+ DQplbmRvYmoNCnhyZWYNCjAgMjgNCjAwMDAwMDAwMD NcKiW9NiOiJs0FJAUdQSHlNUBhVwNlCSXxTECtVXirCTPkONHrBQT4MDMsILUpAM5RUwQsDGHgWwNrUE UdXPPeAVEcbi6FMBNsQUYoZOY3PmIsTXIkYNSnRVhkMRNeHXYzYsU2RVQgKVBcJX7WKgFpOWAoXLY8Cq IwRUTsGUKhoj7GTKQeVCHySyhwXPApJJAiJSMiMOyj NLWsMLOaLCW0CPDlXDDxEZ1DBcCfQWGqSIMnPVZfUELgTDYoku3QFBZfXSEsMTY9FaUiXHBuSWAtKOas JULeIPY0VUGjFTKwRHFdZG5ZRgHnUUCrPDT6EEOyXLBcRPIrhw7VERXvVNPvXsu2CUOdLVDrRPXjFXkf XODbOWV5PvP9BDQmNURoHD5QVfNaHFPwWKo1QDCvUJ EtYJBpfr5ZNSYwITKxIsg9BpDgJTQiNBGhJUmjQOLvPXL9YMYbOCKiLYPxRO9KRzEvKIGzLLt2RDSxJA KcFNNxtp7NTHFqYNDgSTAfGDIyVWWvVZCtTAfiVWYkLTY8VaDaUBDpNLSrAH3DTrOmBDCgRvYpZXBfMT CpSBJmkb4XSGJlCKXnGGRnFtBaTMPdOULkFQxvLRAh STZhRFA2AWBkXSVlUS7UWpYkICIlAnX0VJYjRBZxOQGzbz0KKAPgUVNpNxL9GSEaNWNvWPLyOGizVTQs LOIcGAI0UVOnYUBlSQ6MIxIhKVWhPwZ5WCZgUENkOFNskq1RqABhzLptpx5AWFrPHf5XaPuiCRQ9EAyw Zz2snAHvWtKnDIDQXy9NgtGxXUGvBGMFSJvrZQAaRV ExKypoURWfGAIwG4QtHSB4LLX9RnNqXHXnMRFdSRl5ZpJ8V8QpUZY0LORdZJOuWRY4BPx4RjRlLPXoUB IwNWNhODk+WK3fWUy+Us9Ma[id number]== ID Date Data Source [id number] 05/02/2021 09:59:00 AM EDT [facility] Name Value Range Interpretation Code Description Data Arabella rce(s) Supporting Document(s) 2nd Confirmation Type A Positive [facility] The above 1 analytes were performed by [facility] [id number], ,[place] [address] ID Date Data Source [id number] 05/02/2021 06:18:00 AM EDT [facility] Name Value Range Interpretation Code Description Data Arabella rce(s) Supporting Document(s) ABO-Rh Typing A Positive [facility] Antibody Screen Negative [facility] Specimen Expires Date/Time [facility] PATIENT HISTORY Pt Hx Checked [facility] The above 4 analytes were performed by [facility] [id number], ,[place] [address] ID Date Data Source [id number] 05/02/2021 05:24:00 AM EDT [facility] Name Value Range Interpretation Code Description Data Arabella rce(s) Supporting Document(s) AST 14 IU/L 15-37 Below low normal [facility] Sulfasalazine and sulfapyridine have the potential to falsely depressAspartate Aminotransferase results. Baseline values before medication administration are recommended. ALT 56 IU/L 13-56 Normal (applies to non-numeric resul ts) [facility] Sulfasalazine and sulfapyridine have the potential to falsely depressAlanine Aminotransferase results. Baseline values before medication administration are recommended. Alkaline Phosphatase 110 mIU/ml 50-136 Normal (applies to n on-numeric results) [facility] Total Bilirubin 1.40 mg/dl 0.20-1.00 Above high normal [facility] Blood Urea Nitrogen 12 mg/dl 7-18 Normal (applies to non-nume ny results) [facility] Creatinine 0.79 mg/dl 0.51-0.95 Normal (applies to non-numeric resul ts) [facility] N-Acetylcysteine (NAC) and Metamizole em ve the potential to falselydepress Creatinine results. Baseline values before medication adminstration are recommended. Patients undergoing treatment with phenindione will have falselydepressed results. Patients on phenindione therapy should be tested with an alternativeCREA method.Toxic levels of acetaminophen may lead to falsely depressed results forpatient samples. Glomerular Filtration Rate 81.00 mL/min/1.73m2 [facility] GFR Reference Ranges:Normal Function or Mild [...] of Health and the National Kidney[employer]. The Norden method used in calculating this result is traceable to [employer] standards. Glucose 85 mg/dl 70-110 Normal (applies to non-numeric resul ts) [facility] Sulfasalazine has the potential to false ly depress Glucose results. Sulfapyridine has the potential to falsely elevate Glucose results. Baseline values before medication administration are recommended. Calcium 8.7 mg/dl 8.5-10.1 Normal (applies to non-numeric resul ts) [facility] Total Protein 7.1 g/dl 6.4-8.2 Normal (applies to non-numeric re sults) [facility] Albumin 3.1 g/dl 3.4-5.0 Below low normal [facility] Sodium 139 mEq/L 136-145 Normal (applies to non-numeric resul ts) [facility] Potassium 3.6 mEq/L 3.5-5.1 Normal (applies to non-numeric resul ts) [facility] Chloride 112.0 mEq/L 98.0-107.0 Above high normal [facility] Anion Gap 6.6 [facility] Carbon Dioxide 24.0 mMol/L 21.0-32.0 Normal (applies to non-numeric results) [facility] The above 16 analytes were performed by [facility] [id number], ,[place] [address] ID Date Data Source [id number] 05/02/2021 05:16:00 AM EDT [facility] Name Value Range Interpretation Code Description Data Arabella rce(s) Supporting Document(s) Hemoglobin 9.7 g/dl 12.0-16.0 Below low normal [facility] The above 1 analytes were performed by [facility] [address], ,[place] [address] ID Date Data Source [id number] 05/02/2021 05:16:00 AM EDT [facility] Name Value Range Interpretation Code Description Data Arabella rce(s) Supporting Document(s) Hematocrit 31.7 % 37.0-47.0 Below low normal [facility] The above 1 analytes were performed by [facility] [address], ,[place] [address] ID Date Data Source [id number] 05/01/2021 11:33:00 PM EDT [facility] Name Value Range Interpretation Code Description Data Arabella rce(s) Supporting Document(s) Care Plan [facility] COOYYe1qNsTIMdYj36/JOYnbFSVrm1EuIXinAEb9GYnnRQEsJ6VdWSM2gS2aWIN3KLlCJgAlGpQuSKYy lbm [file] YNCg== ID Date Data Source [id number] 05/01/2021 06:29:00 PM EDT [facility] Name Value Range Interpretation Code Description Data Arabella rce(s) Supporting Document(s) SARS coronavirus 2 RNA [Presence] in Res piratory specimen by MELINDA with probe detection NEGATIVE [facility] This lab was ordered by [facility] a nd reported by [facility]. ID Date Data Source [id number] 04/28/2021 06:15:43 PM EDT [facility] Name Value Range Interpretation Code Description Data Arabella rce(s) Supporting Document(s) Nursing Note [facility] BIBXKe6qBdMLLxKh32/OGYubXQEvw0NxWBnhXEu5UTpaAGVaZ4BtCSI1hK5fIAD4SZkQApYpYtCjPEYw lbm [file] JqiAykABNCAzIoCEk6FWcqOOHRXl7X ID Date Data Source [id number] 04/28/2021 04:30:15 PM EDT [facility] Name Value Range Interpretation Code Description Data Arabella rce(s) Supporting Document(s) Discharge Summary [facility] MJRIEq0xYoPDFyBy18/NSKhfHQFah1KvUPgoQBu3KKytSNKsM4SjDVM0uX2wHUM7GYeVOfGzTvEqMPQh lbm [file] ez+XKyna+W/Bxl793+V2+mk/vp site+pdfxMnrIXbuyUTG [file] AgICAvRjMgMjUgMCBSDQogICAgICAvRjQgMjggMCBS KOqrGRVkTIQoXnReIfKpFQMFVd0FVaZfZUYqZW8gbkIrxVW3GTD+Ub3ULDDsWZ3RyRCRC5PorPAxAPnx F9ANMW2UDJB4MH0QyYEaMX8ZyOJQD2WvzYMqKg3qEUQfu8NoIv2iZ5VURLBMMHVrVSonBHyxVDHoYDb2 D3T1ZNPdU9MEX980cHPorJs3Nc4cV5YJRTeAUvViML iiHJntKWJjQLh3M2A0XCTdZ4QFS5XlOcIopzXpF6H+BuBbNDAACO8JJIDELQy1K6C3yZJlQ1H5pYeDkN C9QK9NGK0KaKAlpSNjq52+MrTPWqGdTPGzW1BRXBLLUzWbLPnyNBtrTOUnHTw7T9H5DFJkO7DYD6dbY2 h0ZW4+ObUJVaFhZKXgWu6XMzRjEa9QQtTcIN9cnw5O HkLvYLBvOygCOho0T3msewc4gCOuXyV2K7X0XbN4eGRoLC2CN4T8pVOkLGA3IOBovCM+Mi5Aw2BoIAOx UDl6K1qkMBDiFLNeJmGqjX10V++7dfwjgOI2R5i8NVNZoKPciVeHyjKfI6vLCFZ9h5I3SWx/Fj1QQOK7 aLi9nWCnZXVlCHr9aN2waTs5WjGnCW49EIDmKYdefW 5xZjo1L2Bls6BzEv5jTm3zbTHbWm3MKhNpJVN3fqUdFeSRUwL5kAvqwiofQDA9J5y6fXP1Hi85u6xgna Iuk5ZoNqL7MIvrXZUkToHuiyGsRXQ5hqZzjH9aoqTtOl4JOKHfHNkuytWdFmVAJh2PIsGrPN80FjdrvP 1ldGE+DQogICAgICAgICAgICAgICAgICAgICAgICAg ICAgICAgICAgICAgICAgICAgICAgICAgICAgICAgICAgICAgICAgICAgICAgICAgICAgICAgICAgICAg ICAgICAgICAgICAgICAgDQogICAgICAgICAgICAgICAgICAgICAgICAgICAgICAgICAgICAgICAgICAg ICAgICAgICAgICAgICAgICAgICAgICAgICAgICAgIC AgICAgICAgICAgICAgICAgICAgICAgICAgDQogICAgICAgICAgICAgICAgICAgICAgICAgICAgICAgIC AgICAgICAgICAgICAgICAgICAgICAgICAgICAgICAgICAgICAgICAgICAgICAgICAgICAgICAgICAgIC AgICAgICAgDQogICAgICAgICAgICAgICAgICAgICAg ICAgICAgICAgICAgICAgICAgICAgICAgICAgICAgICAgICAgICAgICAgICAgICAgICAgICAgICAgICAg ICAgICAgICAgICAgICAgICAgDQogICAgICAgICAgICAgICAgICAgICAgICAgICAgICAgICAgICAgICAg ICAgICAgICAgICAgICAgICAgICAgICAgICAgICAgIC AgICAgICAgICAgICAgICAgICAgICAgICAgICAgDQogICAgICAgICAgICAgICAgICAgICAgICAgICAgIC AgICAgICAgICAgICAgICAgICAgICAgICAgICAgICAgICAgICAgICAgICAgICAgICAgICAgICAgICAgIC AgICAgICAgICAgDQogICAgICAgICAgICAgICAgICAg ICAgICAgICAgICAgICAgICAgICAgICAgICAgICAgICAgICAgICAgICAgICAgICAgICAgICAgICAgICAg ICAgICAgICAgICAgICAgICAgICAgDQogICAgICAgICAgICAgICAgICAgICAgICAgICAgICAgICAgICAg ICAgICAgICAgICAgICAgICAgICAgICAgICAgICAgIC AgICAgICAgICAgICAgICAgICAgICAgICAgICAgICAgDQogICAgICAgICAgICAgICAgICAgICAgICAgIC AgICAgICAgICAgICAgICAgICAgICAgICAgICAgICAgICAgICAgICAgICAgICAgICAgICAgICAgICAgIC AgICAgICAgICAgICAgDQogICAgICAgICAgICAgICAg ICAgICAgICAgICAgICAgICAgICAgICAgICAgICAgICAgICAgICAgICAgICAgICAgICAgICAgICAgICAg ADOhVCLjLBQpHLFqWZGxCJDjLUEoRHPlXEe2V3fpPNTwMZZyKC1rJOw1Hf0+XUtWDsQfHDF0zbDitZ2Z VT8tz3BlANowIVSix3MoBPc4OO6TTOCcZUzxKO9CHV jgqh1RROUfSJCpgCKAz5xqMfReXWM4TUQoRjuaSN3WVANaQ0peisVnQEDsZOIEAMdaTKQKAGurVSAEPF CmZBCfSdWzVxJzXYPyQD0WERWuO543eoLfSY5JIe2DYmFoID4nka0ATuOmHJVlRbwZKst8EXwuBP3KbC IreBNaXKDpGCGDOwRuW3vcz1WrYzRoOIKRAOrqMS9K r1EhtRDvWFu+Hc8LNF6fg5WdWLtvXZBiVG6mpo4WGStAKlYqR1JdoTdwTWErp4WtVFEtQMTVmW3hSBX9 SMO0UGJdjtCsO8jgvk32ZNMHWQBzsKM8FiSlRzIeAmRrZPT6FrliIG8aHAduLQ6NXBR1BQdiJCRkLPFu D5vSDxYvFQgmSTPgmUffWU3RShGaD2PokzGskYDjFA AwIFINCj4+DLqyzmHxFxqANqS0AORwa4JnLYr2FK0PMMKuZAlaGU1KJDDdoT9jHOciEG7RHmShOuBkHI GMMgFlI64yfLFfIOh1E1ToXdQcTPGdQlmnLZJnYRqbLxFhCNLpMwZjAWtiVH0+ID4+MLqvEV8KQAwine PeXONnTq0UUNXjHHCwLA4hJMDkQZHgN7U8kScuVNLN PtNnP3hbzijoQI1vVOPbY843uVgwhdHoHWN1YILlEc4GOYKgKOK8OCUqvNWaPmUxZVSPOHgvXX3EiTGe MAL7vZ6yZZifWORdZUOkJ2fJEeTchKflYI24bJgjiiZluFClIAq+Sj6ZHA7jl0HvWVn3twWqOKjeTGT8 OFdtDDExTYBnGVFpZBJ9PVM0RRDFDoIyABDzWJIpSX pwNITnUFNmji9SCKInVQTsHQH8DeVmUJBkIURmMLnlJCZyHFOgUJM8FAHqLKJuYM6CJmSrFFTfHYUqFB waAKGrYQSfcw4DVSMhIRIaGfI9AKUkSESjUAZfXOwdRNMvORAcLhkmZXVxNJLaKL6JOfTjFFCgOOU5FN AzCBUrUAIpjh6CLIXyQDQlANjpEeSkGJKxLJZpWAcn NQHdWDS8VyDxTTNdVHJwKX8ZStDnZRZgKUr3BnSrXJHjIZDzoa3RHUSrJMHjGXy3FPQlUTOuXVRfPCet TDZdUKCqMDidRJOsQZFiHB4VIaNqPZFbZGAsPdEnFDBaACIkys0QHVIgCXExBmDdJjCaMTOlENCsTEpr QJPjYWF3QZk2IOKdHXLtES5RUbGvBHVeOQVmAKkfPI UrGJNusu2GTHDlCCFmYPJ7LNYeKCGdOCEkFBzaXYVeGDL8SMX8NBPqSDCsMK2JUfRqSIIyANL9MRFkOO ZcHBDpbt2CQMEzLCXuJEszHYUaEOFjMXBaHPhwYJOjCSQ3JIguSQVuCPVzYI5ZVjGpWNWdNXvfPAQwCY KdSALcha3USEZiEDRxOdZ6MQTqLQWdBAEhYNujTWTw KZV7FxT0LGYsBCVmXM7BIlFzKWFeJOw7HeYdYGBoMMYhux7ANZIsWPRdXKFlTDVtYQBpURBgQSlaAULf MOH0UOdkSZJgNIQnVI9DHjUqVSVgYLg2WSUnGCBgAHEaxr6HDCNgRSHqYOt3WTXkIGTyPIXvMWziBNQd HWFwYYT6LMNjKEXgQN3IQgYkLKGnJmZlNJRwUFPeVG Cffh6ATDZmSYJeTAGmEKOeTBPlZSBjZFujUMSfRHZpVHS2LZKtOOMbVC0JNgRpRFMrMoErMCErXSKxSS Vosi6IFNMiLEKhZwV8XVSbHAOdDBBeHMolFVYdALClJHCaCNDmFDGpWA4BKqAxRHxlEUKEQfa8AKzdJ9 t4GQQvVo8OG5Est9JmWoPvTKUHZRveRQ3xmrUuNMAw Yu7OA1lPDkkiYIGbMvpsGiJnLqI3IqGuPSY0EZybROtsEYI8IGRkOd3qRDFxLjWbKBVsMBZrRaCnFbT8 DONgYPIdU6H1JRm5XEPcBjJpNB0ERs5JWsP1MHY0rJMfPb8XDhY1PNCDRfMjWJ4UAKt= ID Date Data Source [id number] 04/28/2021 03:03:23 PM EDT [facility] Name Value Range Interpretation Code Description Data Arabella rce(s) Supporting Document(s) Care Plan [facility] UMJLNw2mCyCABnWc47/YNCqhBNCkn4OgTPdvKLz5HVjwNXCzG5RjPUU3zC6jQIT1LStEEmGlEoJmQBPi lbm [file] DQo= ID Date Data Source [id number] 04/28/2021 12:53:00 PM EDT [facility] Name Value Range Interpretation Code Description Data Arabella rce(s) Supporting Document(s) Glucose, Fingerstick 131 mg/dl 70-110 Above high normal [facility] The above 1 analytes were performed by [facility] [address], ,[place] [address] ID Date Data Source [id number] 04/28/2021 11:25:13 AM EDT [facility] Name Value Range Interpretation Code Description Data Arabella rce(s) Supporting Document(s) Nursing Note [facility] PEFCRn3rFpBLRvNy02/MEIpkBWDmi8TzSTddUGp8HEtgAEGxV8QiSIY3bC0lAOO0VUuXKsNgItKqOOBl lbm HkZypLWhYiZQLnObeZYvLrNOnhEfsaiMKbWR8IyRP7TGLyV66gWVTjVLVqA6SyUQewYb0+VUdhRLQ9pg ZceI3KLOJPKJbNQcRUqr/U/cISFeGW0c3tOQFtEABKHUORyMw9LFWLJfGmHAgew9324z2yZF4QYLNSid QdeWY+zzeHvQHwfz+hpSVjDPLP+lFbATdjePsGKrVE [file] ILKLDcZfPIQyAZcrHOOCMt2T ID Date Data Source [id number] 04/28/2021 06:07:30 AM EDT [facility] Name Value Range Interpretation Code Description Data Arabella rce(s) Supporting Document(s) Nursing Note [facility] HSCKAh2dNcPHGhVl42/KMVoaFEZuw8YiBJsvWFp4TFfeINZrN3AwJFL6fL8eWSZ9TOkHDuDjLpZqLTOp lbm [file] LlNZEuEYYbPJt6WPMzSkRyPPG3HuDxQx6zLRKUIb6+VAacqHKdbAwsWLSUQfSaKXQ8UVphXZDDPl3D ID Date Data Source [id number] 04/28/2021 05:35:00 AM EDT [facility] Name Value Range Interpretation Code Description Data Arabella rce(s) Supporting Document(s) Glucose, Fingerstick 72 mg/dl 70-110 Normal (applies to non-num madiha results) [facility] The above 1 analytes were performed by [facility] [address], ,[place] [address] ID Date Data Source [id number] 04/28/2021 05:43:00 AM EDT [facility] Name Value Range Interpretation Code Description Data Arabella rce(s) Supporting Document(s) AST 126 IU/L 15-37 Above high normal [facility] Sulfasalazine and sulfapyridine have the potential to falsely depressAspartate Aminotransferase results. Baseline values before medication administration are recommended. ALT 193 IU/L 13-56 Above high normal [facility] Sulfasalazine and sulfapyridine have the potential to falsely depressAlanine Aminotransferase results. Baseline values before medication administration are recommended. Alkaline Phosphatase 172 mIU/ml 50-136 Above high normal [facility] Total Bilirubin 1.30 mg/dl 0.20-1.00 Above high normal [facility] Blood Urea Nitrogen 7 mg/dl 7-18 Normal (applies to non-nume ny results) [facility] Creatinine 0.75 mg/dl 0.51-0.95 Normal (applies to non-numeric resul ts) [facility] N-Acetylcysteine (NAC) and Metamizole em ve the potential to falselydepress Creatinine results. Baseline values before medication adminstration are recommended. Patients undergoing treatment with phenindione will have falselydepressed results. Patients on phenindione therapy should be tested with an alternativeCREA method.Toxic levels of acetaminophen may lead to falsely depressed results forpatient samples. Glomerular Filtration Rate 86.00 mL/min/1.73m2 [facility] GFR Reference Ranges:Normal Function or Mild [...] of Health and the National KidneyFoundation. The Norden method used in calculating this result is traceable to IDMS standards. Glucose 77 mg/dl 70-110 Normal (applies to non-numeric resul ts) [facility] Sulfasalazine has the potential to false ly depress Glucose results. Sulfapyridine has the potential to falsely elevate Glucose results. Baseline values before medication administration are recommended. Calcium 8.2 mg/dl 8.5-10.1 Below low normal [facility] Total Protein 6.5 g/dl 6.4-8.2 Normal (applies to non-numeric re sults) [facility] Albumin 2.9 g/dl 3.4-5.0 Below low normal [facility] Sodium 135 mEq/L 136-145 Below low normal [facility] Potassium 3.6 mEq/L 3.5-5.1 Normal (applies to non-numeric resul ts) [facility] Chloride 108.0 mEq/L 98.0-107.0 Above high normal [facility] Anion Gap 8.7 [facility] Carbon Dioxide 21.9 mMol/L 21.0-32.0 Normal (applies to non-numeric results) [facility] The above 16 analytes were performed by [facility] [address], ,[place] [address] ID Date Data Source [id number] 04/28/2021 04:59:00 AM EDT [facility] Name Value Range Interpretation Code Description Data Arabella rce(s) Supporting Document(s) WBC 5.64 x1000/ul 4.80-10.00 Normal (applies to non-numeric re sults) [facility] RBC 3.80 x1Mil/ul 4.20-5.40 Below low normal [facility] Hemoglobin 9.9 g/dl 12.0-16.0 Below low normal [facility] Hematocrit 31.6 % 37.0-47.0 Below low normal [facility] MCV 83.2 fL 81.0-99.0 Normal (applies to non-numeric resul ts) [facility] MCH 26.1 pg 27.0-31.0 Below low normal [facility] MCHC 31.3 g/dl 32.2-37.0 Below low normal [facility] RDW 14.4 % 11.5-14.5 Normal (applies to non-numeric resul ts) [facility] Platelet Count 253 x1000/ul 130-400 Normal (applies to non-numeric results) [facility] MPV 10.5 fL 9.4-12.4 Normal (applies to non-numeric resul ts) [facility] Neutrophils 56.6 % 40.0-74.0 Normal (applies to non-numeric resu lts) [facility] Lymphocytes 32.1 % 19.0-48.0 Normal (applies to non-numeric resu lts) [facility] Monocytes 7.6 % 3.4-9.0 Normal (applies to non-numeric resul ts) [facility] Eosinophils 3.0 % 0.0-7.0 Normal (applies to non-numeric resu lts) [facility] Basophils 0.5 % 0.0-2.0 Normal (applies to non-numeric resul ts) [facility] Immature Granulocytes 0.2 % 0.0-0.5 Normal (applies to non-nu meric results) [facility] Nucleated RBCs 0.00 % 0.00-0.20 Normal (applies to non-numeric r esults) [facility] Abs. Neutrophils 3.19 x1000/ul 1.92-8.31 Normal (applies to non-numeric results) [facility] Abs. Lymphocyte 1.81 x1000/ul 1.20-3.70 Normal (applies to non-n umeric results) [facility] Abs. Monocytes 0.43 x1000/ul 0.14-0.97 Normal (applies to non-nu meric results) [facility] Abs. Eosinophils 0.17 x1000/ul 0.00-0.76 Normal (applie s to non-numeric results) [facility] Abs. Basophils 0.03 x1000/ul 0.00-0.22 Normal (applies to non-n umeric results) [facility] Abs. Immature Gran. 0.01 x1000/ul 0.00-0.02 Normal (appl ies to non-numeric results) [facility] Abs. Nucleated RBCs 0.00 x1000/ul 0.00-0.02 Normal (appl ies to non-numeric results) [facility] The above 24 analytes were performed by [facility] [address], ,[place] [address] ID Date Data Source [id number] 04/28/2021 02:02:18 AM EDT [facility] Name Value Range Interpretation Code Description Data Arabella rce(s) Supporting Document(s) Care Plan [facility] XZHHEx8xWiFHXaRj96/RWWpkAXZai1LdEPpzCLr3SYojSFPjK2ZlICK1cF5eTJB5KFqOYrIsDoXcMEFv [facility] [file] QabGoPoIuXlzwbzbIS61QX8I86QcmUEx3AVpB/F/draw in hand [file] hJT+zwSvrBDo+mP8CE6qr5tp2prEr2gr7JJaB32S/carlos a/8BdYYOetqKaq1kRyaGyRBPhxumFeX0OkN21N [file] S4UNHSYvZrNM8ZJMa= ID Date Data Source [id number] 04/28/2021 12:07:00 AM EDT [facility] Name Value Range Interpretation Code Description Data Arabella rce(s) Supporting Document(s) Glucose, Fingerstick 80 mg/dl 70-110 Normal (applies to non-num madiha results) [facility] The above 1 analytes were performed by [facility] [address], ,[place] [address] ID Date Data Source [id number] 04/27/2021 07:16:45 PM EDT [facility] Name Value Range Interpretation Code Description Data Arabella rce(s) Supporting Document(s) Nursing Note [facility] GHJVFo2tAsNHJuVm88/FLIpmMYZln8UnLTukNPh0QUtbDEWtV2BkMVP9fR1hBXN1CJcMUjLqDpOmBAD2 lbm [file] D5pCArKo6HKvJxYTLKCzGaNK8SSFd= ID Date Data Source [id number] 04/27/2021 05:52:00 PM EDT [facility] Name Value Range Interpretation Code Description Data Arabella rce(s) Supporting Document(s) Glucose, Fingerstick 81 mg/dl 70-110 Normal (applies to non-num madiha results) [facility] The above 1 analytes were performed by [facility] [address], ,[place] [address] ID Date Data Source [id number] 04/27/2021 03:06:47 PM EDT [facility] Name Value Range Interpretation Code Description Data Arabella rce(s) Supporting Document(s) Progress Notes [facility] OWEXNg0bTeHUMzBo17/UMVwzLFXub5ZbLAukQXr6YGjnBIVtV9IoLSG0jD8jXZP4IGfDFdOePbXkEPR2 lbm [file] kfPFPRAs2N ID Date Data Source [id number] 04/27/2021 02:37:54 PM EDT [facility] Name Value Range Interpretation Code Description Data Araeblla rce(s) Supporting Document(s) Progress Notes [facility] OEFMXg1jVhYEGyPm41/XLYosDTTun8RhFKwtRUi2KBkjDRBaY7GsTOD7fV3zMBX5JFpJCkBtIiViEBE7 lbm [file] GFaojYOfnHfmVSEQIxRdDlg3PHrlVGJFJf7H ID Date Data Source [id number] 04/27/2021 02:46:00 PM EDT [facility] Name Value Range Interpretation Code Description Data Arabella rce(s) Supporting Document(s) Ferritin 17.7 ng/ml 3.0-388.0 Normal (applies to non-numeric resul ts) [facility] The above 1 analytes [facility] [address], ,[place] [address] ID Date Data Source [id number] 04/27/2021 02:46:00 PM EDT [facility] Name Value Range Interpretation Code Description Data Arabella rce(s) Supporting Document(s) Iron Saturation 42 [facility] Iron 186 ug/dl 50-170 Above high normal [facility] Patients treated with metal-binding drug s (e.g deferoxamine) may havedepressed iron values. Total Iron-Binding Capacity 440 ug/dl 250-450 Norm al (applies to non-numeric results) [facility] The above 3 analytes were performed by [facility] [address], ,[place] [address] ID Date Data Source [id number] 04/27/2021 02:46:00 PM EDT [facility] Name Value Range Interpretation Code Description Data Arabella rce(s) Supporting Document(s) AST 350 IU/L 15-37 Above high normal [facility] Sulfasalazine and sulfapyridine have the potential to falsely depressAspartate Aminotransferase results. Baseline values before medication administration are recommended. ALT 301 IU/L 13-56 Above high normal [facility] Sulfasalazine and sulfapyridine have the potential to falsely depressAlanine Aminotransferase results. Baseline values before medication administration are recommended. Alkaline Phosphatase 227 mIU/ml 50-136 Above high normal [facility] Total Bilirubin 1.50 mg/dl 0.20-1.00 Above high normal [facility] Blood Urea Nitrogen 8 mg/dl 7-18 Normal (applies to non-nume ny results) [facility] Creatinine 0.70 mg/dl 0.51-0.95 Normal (applies to non-numeric resul ts) [facility] N-Acetylcysteine (NAC) and Metamizole em ve the potential to falselydepress Creatinine results. Baseline values before medication adminstration are recommended. Patients undergoing treatment with phenindione will have falselydepressed results. Patients on phenindione therapy should be tested with an alternativeCREA method.Toxic levels of acetaminophen may lead to falsely depressed results forpatient samples. Glomerular Filtration Rate >90.00 mL/min/1.73m2 [facility] GFR Reference Ranges:Normal Function or Mild [...] of Health and the National KidneyFoundation. The Norden method used in calculating this result is traceable to IDMS standards. Glucose 86 mg/dl 70-110 Normal (applies to non-numeric resul ts) [facility] Sulfasalazine has the potential to false ly depress Glucose results. Sulfapyridine has the potential to falsely elevate Glucose results. Baseline values before medication administration are recommended. Calcium 8.6 mg/dl 8.5-10.1 Normal (applies to non-numeric resul ts) [facility] Total Protein 7.3 g/dl 6.4-8.2 Normal (applies to non-numeric re sults) [facility] Albumin 3.5 g/dl 3.4-5.0 Normal (applies to non-numeric resul ts) [facility] Sodium 136 mEq/L 136-145 Normal (applies to non-numeric resul ts) [facility] Potassium 4.5 mEq/L 3.5-5.1 Normal (applies to non-numeric resul ts) [facility] Chloride 108.0 mEq/L 98.0-107.0 Above high normal [facility] Anion Gap 12.0 [facility] Carbon Dioxide 20.5 mMol/L 21.0-32.0 Below low normal [facility] The above 16 analytes were performed by [facility] [address], ,[place] [address] ID Date Data Source [id number] 04/27/2021 12:43:26 PM EDT [facility] Name Value Range Interpretation Code Description Data Arabella rce(s) Supporting Document(s) Consults [facility] LCONZn3eYzHDBbFv90/URVobADUhf7LrLTqoOJy7HBzgWCKwM3DwCRO4rD2oSYY2KSqDRsMgGcPfHRW3 lbm [file] AgICAgICAgICAgICAgICAgICAgICAgICAgICAgICAg ICAgICAgICAgICAgICAgICAgICAgICANCiAgICAgICAgICAgICAgICAgICAgICAgICAgICAgICAgICAg ICAgICAgICAgICAgICAgICAgICAgICAgICAgICAgICAgICAgICAgICAgICAgICAgICAgICAgICAgICAg ICAgICANCiAgICAgICAgICAgICAgICAgICAgICAgIC AgICAgICAgICAgICAgICAgICAgICAgICAgICAgICAgICAgICAgICAgICAgICAgICAgICAgICAgICAgIC AgICAgICAgICAgICAgICANCiAgICAgICAgICAgICAgICAgICAgICAgICAgICAgICAgICAgICAgICAgIC AgICAgICAgICAgICAgICAgICAgICAgICAgICAgICAg ICAgICAgICAgICAgICAgICAgICAgICAgICANCiAgICAgICAgICAgICAgICAgICAgICAgICAgICAgICAg ICAgICAgICAgICAgICAgICAgICAgICAgICAgICAgICAgICAgICAgICAgICAgICAgICAgICAgICAgICAg ICAgICAgICANCiAgICAgICAgICAgICAgICAgICAgIC AgICAgICAgICAgICAgICAgICAgICAgICAgICAgICAgICAgICAgICAgICAgICAgICAgICAgICAgICAgIC AgICAgICAgICAgICAgICAgICANCiAgICAgICAgICAgICAgICAgICAgICAgICAgICAgICAgICAgICAgIC AgICAgICAgICAgICAgICAgICAgICAgICAgICAgICAg ICAgICAgICAgICAgICAgICAgICAgICAgICAgICANCiAgICAgICAgICAgICAgICAgICAgICAgICAgICAg ICAgICAgICAgICAgICAgICAgICAgICAgICAgICAgICAgICAgICAgICAgICAgICAgICAgICAgICAgICAg ICAgICAgICAgICANCiAgICAgICAgICAgICAgICAgIC AgICAgICAgICAgICAgICAgICAgICAgICAgICAgICAgICAgICAgICAgICAgICAgICAgICAgICAgICAgIC AgICAgICAgICAgICAgICAgICAgICANCiAgICAgICAgICAgICAgICAgICAgICAgICAgICAgICAgICAgIC AgICAgICAgICAgICAgICAgICAgICAgICAgICAgICAg ICAgICAgICAgICAgICAgICAgICAgICAgICAgICAgICANCjw/oDLnA7mxeDRksaN9N1tyFw1UHd0DEU1i g3AaNPFoQOahhkLcMavUBcLwISAyCxlGMgc2EMhpUB1SoUNiP4GkV0GsWAhdLH6UFIFwGZQdsYQqHOQs DSPtZiI1VQVlIQzgNM9OzVHhZTruPTTbSSSqKsBvBB GvGYZxJFPuFGJgUOLXMYNwDCRwZoIkSDYvTVTzBDqvJYOETS4IVlKlR1CsdH19JRaHMv6+DQplbmRvYm jXOuXsQRMlo7ZtANk7OI4JELZaFaolf0HgUKCfCTBJGZnkQG3KTDY3ZWFrIGBySh0HYAQpZ645pwBvZG 1KSw9BEiBgTY9wqm9WKPGqVQPtZqjIQdx4ZYyvAM0T tDXpEPtVn90ayHi0duWaqQAIfWsdyQWsLJPdH8YmNuIgTGEUVUYrbXZ3GjF8UeWrGuZoICB0GNnsAN8u UPenNM7JXQB1NRmkYMHwBLJbI2fKHmIrHPbdLBJoaYcbZP2HEmYoS9CkvePksKO8CAXiWYHZAb1+DQpl uxMwQwlMPkWhSAXcl4ByMEl3BA5DPGZbAKzoVG9ZIV ThcF5nEYuvGN0AHaCwQXMtPBYDRtInC78eeZMcVEq0H0IhNiTkCSEfFhwpGPVuPBteByPaXYEaNvZyHF ogID4+ID4+NAgxEL2FYTfvmoHtDQBoYm4QQQCkXWNyRE0vKTVkDVSpC5F9wXcbWCORRqBcD1owwbmuJI 1bWVXuV511qNlwxiUpWDKlAZNuKg2WSYRsMAQ6WJAs wDZgNpbqTIJTBDurCV8KxAVhFPQ0zC2tIGvwWGTyHIGiZ8vCPxCmuLsdAG23aMwashQlvMVgOUf+Pg0K DQ1oc3BqXMw2ayNzKEwwURLdBMjjFWPnMIQhYWCiJJN1WLL0XLYPZlThRRCuVJEfJTtxPNNdMOZlxh6N TUDxBYMqLyW0XiIfTXWsZAXkIWimPYWmOXN1XVLnYL GqDSYwSR2PEbMzFZOaAHKaIIanOQJxGVXqys6EBGKuXOUxWuWiPCQtALGxQVQmHEumKMNmGQGsAWK0CG PqWTBhHT9ZBxCjJANfMUGvOFzyWTClKSGuah6KPFWgHENqAcVfMlQyVQPjIPCnBImsSMIcTKO4ZrXvUQ YqVHYuIQ1BGxCfUBZaJVv9UDElXZKyZASxdl6CVKKr ZBNgKLJ0PeXhYJOoSQNhSUcsRACvKAFsRCW1TXOkNDQdFO0QDlIfGIRvHWJuNjLxHZGwQQBpyr7IIDOk IAOwIdJ4RJZvSNDaPSNcYRtkENImLMD5SFv0RPMjNQUdOZ2XBgElQJSmPNK3NWDhFXLoGZQdcd4DVKDp KNAaOOrzFZRaEHRnZFQnJKsgAUOvMXQ9GCF6UZPyQK YfQU7KMjJdNRAfTKyyDAQpAEZzBCUkqo5RRAHePGWmUaL5MvTmHNTcNJDiRVgcKPGgWDL8GNi1RBKoEP FhOW7MRmXkCTMtWIy9HmZrFYHwQJHrvc8CJIGjKDVgOEKiLUTtGOToRSAaXBnpJDNlXDT6TPH1NHFhBV UuIH1CYaPlGFMaQRt8SaWpMRLwQTDfzq7FMLJbJQRj GZs8LCHoYSTlKINdCYqoDBSrRSMuGCooIFIxHLXsQM1MKaTpNSViItMlCxmoHSQgYQEcxz3HNTWzCHYo QDLfEFQpSVHeRJWdWDlxHYRnKTDuILG9NCUrAYPwRY3CXaJfCTAcWeJ7KgDaVBSuJMWgbs5NOGSxMVRs SDU9SSDoJVAqLDNcUBouXAXcUQU7YyA2YCZkHAAfTF 6DTeAmLEXoFzU4APtbCLTmEHRopu5HVNQbFHVoEWu0JbJjHWGlOJLvTHriMRDjGXV3Imv3XDBsNAJaRO 4ZVfCeSBGvXxY9KOOpWJVyCSEekj0XKVHaRTStEyF7SQUaEGNuDEIpIZzzMXReLLG7FYGyXOPpLDKkDY 3BZrDjSNOoUbv1VAdjYYSrXGJibg8NRXXmTALkPJR1 YIYbXLAdZPYkEGyhWNKhNMI6OmT8VGUmGVYxWS2NUbQjBMnuPAYXDip2YAorI6s0BPP3Ov9MP7Oxv5Wa DFVhTEEOXCmtLN8utrZmLQLgSi7LS3wXJxovKrT2YRPzJYexFEY1KTNmYgP0DQNqVNBqSwraDwihDN9e GVYtViRgNENvFFVgEnM7KWXvPIJ1OWZrXaYgVFO4Ep NfVjBbQD3YWn1QEtE4KEX6sLLaPu8NEzh9PUpHEdYdPM3QASf= ID Date Data Source [id number] 04/27/2021 12:30:00 PM EDT [facility] Name Value Range Interpretation Code Description Data Arabella rce(s) Supporting Document(s) Amphetamines, Urine Negative Negative Normal (applies to non-nume [place] results) [facility] Barbituates, Urine Negative Negative Normal (applies to non-numer ic results) [facility] Benzodiazepines, Urine Negative Negative Normal (a pplies to non-numeric results) [facility] Cannabanoids, Urine Positive Negative Abnormal (applies to non-numeric results) [facility] Cocaine, Urine Negative Negative Normal (applies to non-numeric r esults) [facility] Opiates, Urine Positive Negative Abnormal (applies to non-numeric results) [facility] PCP, Urine Negative Negative Normal (applies to non-numeric resul ts) [facility] Methadone, Urine Negative Negative Normal (applies to non-numeric results) [facility] DrugMinimum Detection Threshold (Conc.)A hhfvqecenp0441 ng/mLBarbiturates 200 ng/mLBenzodiazepines 200 ng/mLCannabinoids 50 ng/mLCocaine Metabolites 300 ng/mLOpiates 300 ng/mLPhencyclidine (PCP) 25 ng/mLMethadone 300 ng/mLOxycodone 100 ng/mLNOTE: Phentermine may interfere with the amphetamine analysis.NOTE: This urine drug analysis is a screening procedure. Presumptivepositive results are unconfirmed.[facility] recommend submitting positive specimens to areference laboratory for confirmation. Oxycodone, Urine Negative Negative Normal (applies to non-numeric results) [facility] The above 9 analytes were performed by [facility] [address], ,[place] [address] ID Date Data Source [id number] 04/27/2021 11:48:00 AM EDT [facility] Name Value Range Interpretation Code Description Data Arabella rce(s) Supporting Document(s) Glucose, Fingerstick 78 mg/dl 70-110 Normal (applies to non-num madiha results) [facility] The above 1 analytes were performed by [facility] [address], ,[place] [address] ID Date Data Source [id number] 04/27/2021 08:10:31 AM EDT [facility] Name Value Range Interpretation Code Description Data Arabella rce(s) Supporting Document(s) Care Plan [facility] NGOPUx8oMbFYMyJa62/IKPawTWTwx0BqBUedFVj2HUjdLOFuX5MtFYD2aB4lTPR3ZFhJYzZrFoXeLEU1 lbm RzKwpIKzYtBMVlCpyXXgYmJVvfDmqixRImBW5MeJE3AJFcQ98wWMGfGMLrG4OyCXr8Hf5+HXhbJVN6pa ScxC8UXRJaAVsp5rYZls/Yf+MhHsCGtqV1osNOts5SFjx3MNUKe5vnL/PTW8s3EvuqWsqa70Uz5JGlFf dIa1RAVe8GCrXzY5P+3UFLhoQQyP+Fx3Ud5S/g9Suo gID2TEdrIEZ4kCZYmI9tHeN881NRNwZYuho8GJkg4ZZWZWQCZJuXL8VRcwT4FYgVOKjCCWsI0W1U0FYJ Mr0EWBk6NX4I5pghTEeGvbvtyy5J77VptqQI8JViiOixKtKtcSCnFLfLZSwwuBdAlNhTxTJdg1LebG4g i7BKYgZ6nnwEfq4IixFFnUQdl7D5sGnES41VAsHVMg t2H7hCWLhua5bpoOdC1RL7V/LPq1ZTtXsXJ6gSDFOaJiUAAj3yr5cRNNoVlWbJTMCM63Pj2IxMpQz1Hd 5Y1sZ3OgiTyg4HUFCzrmzrfClZG/yiWB7J4KwBrExlCQNoTeG1x2iP7zejqFZlSyWN/1puy4yt1GyV17 ql+PzWLDcuxisndbOurI/98we8uBt2wKoRC3/dmlsr FG0WkhpFSOZyy1FngpsC2zpJJgoNvrsjOJbvQe4Ed9N82XswPS1pL2+ZPaN6CIYEb1tALvG9yFSIVDEN X8vbTFC8vJ0hhYgDUG0W0PqmHNiwZLKS7Mtli0qfW8IgsRiaLEiMkuRseq3qC/Madonna/L69j14nCld7cs0 [file] [id number] ID Date Data Source [id number] 04/27/2021 06:03:19 AM EDT [facility] Name Value Range Interpretation Code Description Data Arabella rce(s) Supporting Document(s) Nursing Note [facility] ZATCSw2lBaZTJcSl47/LIPzmDPUvl3VeAQfnYFv5CHdsZPIsG2LvJGW6tC5jVXN2XHlLBlFeHrHoXOK7 lbm [file] k8RmRsZE4DNg9QHbA8HEU3wNBpPy4MQxAlKCTPIxMrAP4JWOv= ID Date Data Source [id number] 04/27/2021 05:24:00 AM EDT [facility] Name Value Range Interpretation Code Description Data Arabella rce(s) Supporting Document(s) Glucose, Fingerstick 88 mg/dl 70-110 Normal (applies to non-num madiha results) [facility] The above 1 analytes were performed by [facility] [address], ,[place] [address] ID Date Data Source [id number] 04/27/2021 05:58:00 AM EDT [facility] Name Value Range Interpretation Code Description Data Arabella rce(s) Supporting Document(s) Blood Urea Nitrogen 9 mg/dl 7-18 Normal (applies to non-nume ny results) [facility] Creatinine 0.72 mg/dl 0.51-0.95 Normal (applies to non-numeric resul ts) [facility] N-Acetylcysteine (NAC) and Metamizole em ve the potential to falselydepress Creatinine results. Baseline values before medication adminstration are recommended. Patients undergoing treatment with phenindione will have falselydepressed results. Patients on phenindione therapy should be tested with an alternativeCREA method.Toxic levels of acetaminophen may lead to falsely depressed results forpatient samples. Glomerular Filtration Rate >90.00 mL/min/1.73m2 [facility] GFR Reference Ranges:Normal Function or Mild [...] of Health and the National KidneyFoundation. The Norden method used in calculating this result is traceable to IDCA standards. Glucose 80 mg/dl 70-110 Normal (applies to non-numeric resul ts) [facility] Sulfasalazine has the potential to false ly depress Glucose results. Sulfapyridine has the potential to falsely elevate Glucose results. Baseline values before medication administration are recommended. Calcium 8.1 mg/dl 8.5-10.1 Below low normal [facility] Sodium 137 mEq/L 136-145 Normal (applies to non-numeric resul ts) [facility] Potassium 3.8 mEq/L 3.5-5.1 Normal (applies to non-numeric resul ts) [facility] Chloride 109.0 mEq/L 98.0-107.0 Above high normal [facility] Anion Gap 11.1 [facility] Carbon Dioxide 20.7 mMol/L 21.0-32.0 Below low normal [facility] The above 10 analytes were performed by [facility] [address], ,[place] [address] ID Date Data Source [id number] 04/27/2021 05:35:00 AM EDT [facility] Name Value Range Interpretation Code Description Data Arabella rce(s) Supporting Document(s) WBC 8.06 x1000/ul 4.80-10.00 Normal (applies to non-numeric re sults) [facility] RBC 3.77 x1Mil/ul 4.20-5.40 Below low normal [facility] Hemoglobin 9.8 g/dl 12.0-16.0 Below low normal [facility] Hematocrit 31.6 % 37.0-47.0 Below low normal [facility] MCV 83.8 fL 81.0-99.0 Normal (applies to non-numeric resul ts) [facility] MCH 26.0 pg 27.0-31.0 Below low normal [facility] MCHC 31.0 g/dl 32.2-37.0 Below low normal [facility] RDW 14.4 % 11.5-14.5 Normal (applies to non-numeric resul ts) [facility] Platelet Count 233 x1000/ul 130-400 Normal (applies to non-numeric results) [facility] MPV 10.0 fL 9.4-12.4 Normal (applies to non-numeric resul ts) [facility] Neutrophils 68.6 % 40.0-74.0 Normal (applies to non-numeric resu lts) [facility] Lymphocytes 21.7 % 19.0-48.0 Normal (applies to non-numeric resu lts) [facility] Monocytes 6.8 % 3.4-9.0 Normal (applies to non-numeric resul ts) [facility] Eosinophils 1.9 % 0.0-7.0 Normal (applies to non-numeric resu lts) [facility] Basophils 0.6 % 0.0-2.0 Normal (applies to non-numeric resul ts) [facility] Immature Granulocytes 0.4 % 0.0-0.5 Normal (applies to non-nu meric results) [facility] Nucleated RBCs 0.00 % 0.00-0.20 Normal (applies to non-numeric r esults) [facility] Abs. Neutrophils 5.53 x1000/ul 1.92-8.31 Normal (applies to non-numeric results) [facility] Abs. Lymphocyte 1.75 x1000/ul 1.20-3.70 Normal (applies to non-n umeric results) [facility] Abs. Monocytes 0.55 x1000/ul 0.14-0.97 Normal (applies to non-nu meric results) [facility] Abs. Eosinophils 0.15 x1000/ul 0.00-0.76 Normal (applie s to non-numeric results) [facility] Abs. Basophils 0.05 x1000/ul 0.00-0.22 Normal (applies to non-n umeric results) [facility] Abs. Immature Gran. 0.03 x1000/ul 0.00-0.02 Above high normal [facility] Abs. Nucleated RBCs 0.00 x1000/ul 0.00-0.02 Normal (appl ies to non-numeric results) [facility] The above 24 analytes were performed by [facility] [address], ,[place] [address] ID Date Data Source [id number] 04/27/2021 03:19:48 AM EDT [facility] Name Value Range Interpretation Code Description Data Arabella rce(s) Supporting Document(s) Care Plan [facility] RIMWEp4jMcMHCiDz40/RDOwlRKOdo8XdCYqxRXh6FUnrGLGpX7VrHOM0hN2eQXN0NLhPYeAzTfOlBMD2 lbm [file] ICAgICAgICAgICAgICAgICAgICAgICAgICAgICAgICAgICAgICAgICAgICAgICAgICAgICAgICAgICAg ICAgICAgICAgICAgICAgICAgICAgICAgICANCiAgIC AgICAgICAgICAgICAgICAgICAgICAgICAgICAgICAgICAgICAgICAgICAgICAgICAgICAgICAgICAgIC AgICAgICAgICAgICAgICAgICAgICAgICAgICAgICAgICAgICANCiAgICAgICAgICAgICAgICAgICAgIC AgICAgICAgICAgICAgICAgICAgICAgICAgICAgICAg ICAgICAgICAgICAgICAgICAgICAgICAgICAgICAgICAgICAgICAgICAgICAgICANCiAgICAgICAgICAg ICAgICAgICAgICAgICAgICAgICAgICAgICAgICAgICAgICAgICAgICAgICAgICAgICAgICAgICAgICAg ICAgICAgICAgICAgICAgICAgICAgICAgICAgICANCi AgICAgICAgICAgICAgICAgICAgICAgICAgICAgICAgICAgICAgICAgICAgICAgICAgICAgICAgICAgIC AgICAgICAgICAgICAgICAgICAgICAgICAgICAgICAgICAgICAgICANCiAgICAgICAgICAgICAgICAgIC AgICAgICAgICAgICAgICAgICAgICAgICAgICAgICAg ICAgICAgICAgICAgICAgICAgICAgICAgICAgICAgICAgICAgICAgICAgICAgICAgICANCiAgICAgICAg ICAgICAgICAgICAgICAgICAgICAgICAgICAgICAgICAgICAgICAgICAgICAgICAgICAgICAgICAgICAg ICAgICAgICAgICAgICAgICAgICAgICAgICAgICAgIC ANCiAgICAgICAgICAgICAgICAgICAgICAgICAgICAgICAgICAgICAgICAgICAgICAgICAgICAgICAgIC AgICAgICAgICAgICAgICAgICAgICAgICAgICAgICAgICAgICAgICAgICANCiAgICAgICAgICAgICAgIC AgICAgICAgICAgICAgICAgICAgICAgICAgICAgICAg ICAgICAgICAgICAgICAgICAgICAgICAgICAgICAgICAgICAgICAgICAgICAgICAgICAgICANCiAgICAg ICAgICAgICAgICAgICAgICAgICAgICAgICAgICAgICAgICAgICAgICAgICAgICAgICAgICAgICAgICAg ICAgICAgICAgICAgICAgICAgICAgICAgICAgICAgIC AgICANCjw/tFMfJ8aktJTrqgP0N1mbHc2DCo7GQZ3ao7GpHZIsTDmrlrObMktLSgFkZEWzRmhKGtg7LY ecIO8AtSOpZ9KsJ8StNJbyEY7OLQWuIOCneXJkVHElDZSaFfU2SPMxRWtbUP8ElLAkAFbaTRXoXMMnWb DbRNEpUQ7AQMDuC593lhWfIr4AUd6YVqQvGS7sxo0H PkUcMNUoCalCGjr2ZQhbYP7NnMAnfTKgGmSmBQFSCqHfA1kco7PaMrVvUOPVTDtxRY0Il6BxuIOhYPw+ Xx1LAH9vc7TyFRvjLxArYS6xph4JIOrTFmNfO1HkmVtqDYFufbXgTFxtmiDnuLDNqGktsSZfK4BomS63 qJSiIKEQKiBrvLK0PoK5TvMrEgOpDBL1JJzaDR6mPU amZW8AGEZ4YVyuZANrELPlX0cWCwKqAAgxJBJvkMwuTU1QTiPhJ6CuzfTseMGwFQBwLHKHTv0+DQplbm MpZdnVHrH9KLOyr0TeRDq3HQ9PUPKyVOswVW4KVAUqoS4qZBrpFH8LWbTeEcOaLPYIUeVwL92qkPTzTQ b7Y7LzOrFlKFPtMrwoQECfXGtjOzZbZQIvMxKcHXvo ID4+ID4+LNlxMJ3MOOkhsrHsZPYxBe2MARNxGLJpLX5lQYJnUZFtG3T7rPevEPJABbLxY5jwqtztRZ1f COOsU278fJupioIzUOO4KJFoCu8TVVAgRVG1XIOqnBSeTnPfBUKDZWhpYN4AiPRxDLM7xK7pQQgkVPMi CEBlD8uSVtOfxJoxGU52ySkdlfHwoIPfJEk+Pg0KZW 0yr0IfFWn3sqWmOTxcNLQ0CXreACNsHCSmATDzANI8KBF0HJTNCkMwOAChZHMuBHcaJCPnOPQeoa7RXN MfAMZ6AKY5VIHfBABvCPSnOGagBLOzONO7JCTxRSWnDODhAT9IZmUuPMIeCDBkNStqYYNmDFPbwf0AWH AwMDAwMzMwOSAwMDAwMCBuDQowMDAwMDAzNTEzIDAw YGOgIM0LXhOvRQNpXVCqZIKsIVUnCOWlsi4OXQKzVIEgWMYuWeTsMBHxIGGkLHgbBITxAPJ1YqE9QYUe VMUaUJ5ESoGxIGDsRIF2CvEgPYDkDBLihd8ZVLEvJJIuRiN1ILYcYBKfQQCzPAplYLRkHMT1CbPhIWUt PAZtFB0GRaOmXTQgTHv6FKgiXIGaUVOofr1YPOYmPJ VpJcn7TSWkYHCnADNyHSopQQVxDJJaCbZwHRKxABGuEE5SIdLyPSFxJnC5MHXwETCyGUEewv5BBRBdAW OdHTj4DOQyRCDyVPUhBQbgMGApXYXrDGP9ESBvKWApIL6STkKdETNhMvNlGWAyYBYwTHPius5PBNYaAX SgEmR3JrRwAFRxOUHsWImwBSNjMAEaTiihOCBvVNMi CG9RGsQnAFMfLjR7AzncDJMvNXSscy3SRVPqGZKiAoVlZMSpIJUeEWCyYFgkUUIbIWDyVqW1UTEwZUYu IB4EQcAwGLPgOyP5FgaqVFXaCXVazv6RBYRzVUZ1FXC2RcQoNOWpQUNiZPnaNJErNWEoOEJ3EDIkCZQp BO6KUfQwGOYoPLSgSiYmHXFnEFWexj3TRVLjZXO9Xx O3QTJrGFQtOXCnHEmmSVDpACXwEEG4SBKcTRDxIK0BYrJiKGOiSIL5AIsaLBJhTYDalx1QGFExFSL5Wr s4LTZcNZAiZYLdTNdaYEAkELM7WLE8IZIuJLPiYL0DDdAwJAHzBUX5OJUcSNCrOABfkz4UDYAhITW1Sd X6HbCvUGUdIHFmAWikZWGuWJC2URD5NHJeMYVrNS0I CeAwCSJqXBNfBzKyIAMuTKUsby3PhBSknSmoga4EVHePMd0SuBrnYRW4NQrgSc4gbKKzKpLjSIREIl3L yrXwXJHcMFDTAZbiLKXvVKZfRQOwIhqhNYP9FimoEAG6BXAuUFJ6DwNdMJlwCgVzIoU9WXKcIzQxPWU5 JFIxEJW7RwwfOWH9HzuxMeTnX0PzM6X+MM7sDSe+Su8Ip3SvegT8zoFoCDb4MzOuIc2BSCWAV6RVJs== ID Date Data Source [id number] 04/26/2021 11:50:00 PM EDT [facility] Name Value Range Interpretation Code Description Data Arabella rce(s) Supporting Document(s) Glucose, Fingerstick 99 mg/dl 70-110 Normal (applies to non-num madiha results) [facility] The above 1 analytes were performed by [facility] [address] [facility], ,[place] [address] ID Date Data Source [id number] 04/26/2021 06:50:00 PM EDT [facility] Name Value Range Interpretation Code Description Data Arabella rce(s) Supporting Document(s) Glucose, Fingerstick 114 mg/dl 70-110 Above high normal [facility] The above 1 analytes were performed by [facility] [address] [employer] [employer], ,[place] [address] ID Date Data Source [id number] 04/26/2021 06:45:07 PM EDT [facility] Name Value Range Interpretation Code Description Data Arabella rce(s) Supporting Document(s) Progress Notes [facility] SMYFHc1sPuABBmQt37/MUDudZAUqe5UrIOefHMt5EWwkLPBjL2IiRTR2rF9zZBE4FKtOTqBcFgBhTRL5 [facility] [file] AXLE INSPECTOR/oRGFTj4WUbi7xO0Po4613Z0ms7yUG//dnpNtga2M46DY95+vP7/3b6j/vjfzN9aelyWyzHJf2B9+ [file] VJ4kJWf+Df6Ra8GcozS7vtMoVSizKQH4Xl1YBKXBP0ADYk== ID Date Data Source [id number] 04/26/2021 01:21:29 PM EDT [facility] Name Value Range Interpretation Code Description Data Arabella rce(s) Supporting Document(s) Care Plan [facility] ROMSMz8zCaKDZjQw84/EJNkjAKVeg7MgUXmtDKd7OMhrFZShW1HcRNE4iH0qDYQ8GArHLoDjGsSbDKF8 lbm [file] AgICAgICAgICAgICAgICAgICAgICAgICAgICAgICAgICAgICAgICAgICAgICAgICANCiAgICAgICAgIC AgICAgICAgICAgICAgICAgICAgICAgICAgICAgICAg ICAgICAgICAgICAgICAgICAgICAgICAgICAgICAgICAgICAgICAgICAgICAgICAgICAgICAgICAgICAN CiAgICAgICAgICAgICAgICAgICAgICAgICAgICAgICAgICAgICAgICAgICAgICAgICAgICAgICAgICAg ICAgICAgICAgICAgICAgICAgICAgICAgICAgICAgIC AgICAgICAgICANCiAgICAgICAgICAgICAgICAgICAgICAgICAgICAgICAgICAgICAgICAgICAgICAgIC AgICAgICAgICAgICAgICAgICAgICAgICAgICAgICAgICAgICAgICAgICAgICAgICAgICANCiAgICAgIC AgICAgICAgICAgICAgICAgICAgICAgICAgICAgICAg ICAgICAgICAgICAgICAgICAgICAgICAgICAgICAgICAgICAgICAgICAgICAgICAgICAgICAgICAgICAg ICANCiAgICAgICAgICAgICAgICAgICAgICAgICAgICAgICAgICAgICAgICAgICAgICAgICAgICAgICAg ICAgICAgICAgICAgICAgICAgICAgICAgICAgICAgIC AgICAgICAgICAgICANCiAgICAgICAgICAgICAgICAgICAgICAgICAgICAgICAgICAgICAgICAgICAgIC AgICAgICAgICAgICAgICAgICAgICAgICAgICAgICAgICAgICAgICAgICAgICAgICAgICAgICANCiAgIC AgICAgICAgICAgICAgICAgICAgICAgICAgICAgICAg ICAgICAgICAgICAgICAgICAgICAgICAgICAgICAgICAgICAgICAgICAgICAgICAgICAgICAgICAgICAg ICAgICANCiAgICAgICAgICAgICAgICAgICAgICAgICAgICAgICAgICAgICAgICAgICAgICAgICAgICAg ICAgICAgICAgICAgICAgICAgICAgICAgICAgICAgIC AgICAgICAgICAgICAgICANCiAgICAgICAgICAgICAgICAgICAgICAgICAgICAgICAgICAgICAgICAgIC AgICAgICAgICAgICAgICAgICAgICAgICAgICAgICAgICAgICAgICAgICAgICAgICAgICAgICAgICANCj w/kZQeZ0stwFSqqvE6E0usVe6DKm3GRO7dd4NtKMMu LKjofcRdWfeVBfPgTFYaLslRRre0COpwIV4JlTEmN4FiV8PxGIizTA9VCGHyEZQoiRDgEXGaHREdWaA2 INAtVHuoXX4CcGTwDWkzLDAoJBElXbZaVZTkRRLnWUFvZKRoMUAUYMNjBKZtOrLvTEKyOKVtQMzrIZZD OOS3PDEvGpUxOUHjCVOqHxRrCBKIKHQ6UNOdNlYwJl DzBZGaLtzuCAVYJITrRUJeTrBsIvKdBOCwIB8QDKPjK401gvGuDZSMDg7+DQplbmRvYmoNCjUzIDAgb2 RvOXz5TA2AWZNpKvjmr1JhHEKnRAUYUFarGK3EJVN3WFO5UOGlJf4EFVVqP505xzPkYF0GXn3VVoBdWB 4axj8GCIVqTTQrCszDLmb5PXbpNO6QdBEgBMdLSJJe LUVbNJ2yAqykPG3gTOfgJH6kY81fYIbfVa7DCWP9WLdpETmpHpRcYOAnBZckPMOBOPzXXbUiX5Cuf3Bs MoB9GPHwWuAoHOauPFRvToD7BZ01gDnuDF5QCOAeNYNlBJ38NKTcLEVbRa0APq9LKwCkKA5yau1INAAb LCLrVvyORfw6QAnsQG9CxPImN2WtxINzt1wZCzKqO9 XDBREoFVOjLp4COPKcEkMtIIXeMOooWW4iJNMwUGTRrIhxxjK2JO2QOJ7tzwGiUU0KWoHbMp5sBq5GZm LjR2EpN5SbBYWuBILPZXvbXQ5TPAdnHF5zRG4Wt3FOpMNvzN9mye5RXKOyDHMsKpzjjw9XLyraY7P2tE mbQRTeRTVfROFYMQqgPU2UIYItUHP0TJM0KnNwCLNY BzWsP36fPA1UF6Elo48mCkA8FAFnWkUjCNlhUQ15iQkggnYfhTVfkOpxWN9MMn6+DQplbmRvYmoNCnhy MICLCpJuQRJRSdOzGKAfVPFcLPCqTwF4QnUrSx3CKELhOUKrIOGyArXnOKJnDIMiSBwjFPVcIYO0UnD9 ZHNxTULgBQ0GLjWuDKVqPUN6XvKoHTDnWIRmst0GRA UjBIOyVZG6GwJlUQSyAWRjSTkeQVQfOGLcNjupKMAzRGQhQD2ZEeXkTTPuKPS3PEVaOZCiXQRnls8BJX YwQJMiIxSaGeUaASUnGGQuYLhpNEJkDAPyJEPbUIGnAOGdPQ2RXlKvBYYxCDH1ZEYiLTKkGMOuwl2LZL ClWECcKMm4PbLwUJBdFXTkVQwwVULiUHN0Ajf6DJTt NVTuMD1NWcLbWWCcVPceMSShXPPeDVHvxw1CTDZuFYRhHMLlUsIyDBZjEIFrHFzjLRZaJYI1CBT2PQQk XXNnSK5DQwAzRXXqNVR1OXSlAHWbBIFjeh8EVKZxHHKlTNP9WgHyCPSfYGHeQPdmBVVaNZQhKJR8FSEt DPUoHL3TFdEyNMAePVA6EJWfBVRjSDPjac8JCWRgLH TzZSGwDKZdSKNmCYNcGRrsDBWbUZZ2VwYwWCCtNQJiLN9YHjSjAJDzBJP8GPLuFAWbNJYpzj8YOUEeMD LlRDy4FxJxOVHzUJImDWznHEMhNVY3GgVoIXTsMLKeMC6YKdMfDVAoQAj6LRazZLTjEDXufj1VFQIhPR VxRFMlXURpMUHbTLGcDGatXUDuFJH8JEYoWLUaYQIb AQ2CTxKjGLLkMgQoJCovGVZbBSEqxd7CXEBdGNGoOMP0DsNnXSKfBELkZZyzFHHwQMBpNFQ8PNZvMQQt ZX6FMrUfDNNeZgFaGuBmSEBwYRLopp5TRKHoBMWmZITiFFTgYSZxDQVbWXbdVAAbRBS0FpY8PYAkGAAl AO8FLwCwGLUqBnY4VvQyJJCmMBOfdt7HEIOiYUZwYn IzRiIuYGOtRCSuEFruJPWjJKN3WXd0FZOzLPQyDM4XPeYiXYYnLqu7AGdhNMXbEMGeqq5BESOpONZjLi v2GxCcQMTfKIQpGBfvYUVxDDA5KJS0GEJmTPRhOY5MIyXeBCUxYroxHtWcSTVeKVQxed9FRQFaFQInTJ XnZkLzWJJcZZHuXMluNTTcIDVrLaF6CDKeXFSlYR6D LbAiKKDrBVP2WEWzOBNxHTNbsi9VMSVoVLV4ZhH8CTLqCGUyITGuFByfMDAdENPbCNTpHCCxUAClPD9J GrHrIZCeJWR7GsPyIAAqSETmjz0OLYKkDAB9VnXhFQFkQJBlDYKrZDyeKZEeSEBhEuY6MVFfTBKxEX1J HiTfLRQbHOC8VNIhQACsCYFril7AZTSpZVT4QWi6GJ FqEGSeNOWwWQovMXGtEDA1RRM6TOJcHTAeYT7WWmTjGTTmRDNoYDUxRROrQAFymq8RDFLfPRS4QGXpNF SiQFGoVHXnFAllDXYdXEN7KDtoDDTdLFAlAY1SPrObIPQkWCqfTAFgGWYdECIqtw1JVFGfRNA3EfX3AQ SrKOGqLLUtNZz4ehAffYWdXJz8QG1LK0DsmzBmGREW Oe5Vi606ICC5PAZvCl5KX7qrKr5yJLInVYOUZm0IZRo3XME6DwGeSDW7FMOnLYFzBKc4WLGzRmicIpVl NTkyZjg+RSgfJCO9GjAeIHX9OAE1NBD9WDMpJgL4O0VtMzV4FBBdOW7zLCUGBx2+DQpzdGFydHhyZWYN TiV9VbW1CCfsNJMTZl7H ID Date Data Source [id number] 04/26/2021 01:20:39 PM EDT [facility] Name Value Range Interpretation Code Description Data Arabella rce(s) Supporting Document(s) Care Plan [facility] SURWSz2fYaHXMhRq98/HQPfdBTEer5KoBQmzIJl7DEwnCFXoR0IzFWY2wI6yTMV7NIgEPjIkYiTmBDH9 lbm [file] [id number] ID Date Data Source [id number] 04/26/2021 12:43:10 PM EDT [facility] Name Value Range Interpretation Code Description Data Arabella rce(s) Supporting Document(s) Nursing Note [facility] IWPDFy1bGhDHRhYn51/TIQniDUWrp4NiMEhvUXd1RXfbBWJiK3ExBTC1yR9bJDF3WZpWNoJuHwJpOXK1 lbm [file] R9XLVjBVZ+KM2aPFm+Ae3Bl8KztcS6vgJhWAzhGUWwNA6JIHZIM6TCAf== ID Date Data Source [id number] 04/26/2021 12:06:00 PM EDT [facility] Name Value Range Interpretation Code Description Data Arabella rce(s) Supporting Document(s) Glucose, Fingerstick 107 mg/dl 70-110 Normal (applies to non-num madiha results) [facility] The above 1 analytes were performed by [facility] [id number],[place] [id number] ID Date Data Source [id number] 04/26/2021 04:59:00 AM EDT [facility] Name Value Range Interpretation Code Description Data Arabella rce(s) Supporting Document(s) Glucose, Fingerstick 84 mg/dl 70-110 Normal (applies to non-num madiha results) [facility] The above 1 analytes were performed by [facility] [id number] Christo Hallman, ,[place] [address] ID Date Data Source [id number] 04/26/2021 05:20:00 AM EDT [facility] Name Value Range Interpretation Code Description Data Arabella rce(s) Supporting Document(s) AST 15 IU/L 15-37 Normal (applies to non-numeric resul ts) [facility] Sulfasalazine and sulfapyridine have the potential to falsely depressAspartate Aminotransferase results. Baseline values before medication administration are recommended. ALT 19 IU/L 13-56 Normal (applies to non-numeric resul ts) [facility] Sulfasalazine and sulfapyridine have the potential to falsely depressAlanine Aminotransferase results. Baseline values before medication administration are recommended. Alkaline Phosphatase 53 mIU/ml 50-136 Normal (applies to non-num madiha results) [facility] Total Bilirubin 0.70 mg/dl 0.20-1.00 Normal (applies to non-numeric results) [facility] Blood Urea Nitrogen 11 mg/dl 7-18 Normal (applies to non-nume ny results) [facility] Creatinine 0.76 mg/dl 0.51-0.95 Normal (applies to non-numeric resul ts) [facility] N-Acetylcysteine (NAC) and Metamizole em ve the potential to falselydepress Creatinine results. Baseline values before medication adminstration are recommended. Patients undergoing treatment with phenindione will have falselydepressed results. Patients on phenindione therapy should be tested with an alternativeCREA method.Toxic levels of acetaminophen may lead to falsely depressed results forpatient samples. Glomerular Filtration Rate 85.00 mL/min/1.73m2 [facility] GFR Reference Ranges:Normal Function or Mild [...] of Health and the National KidneyFoundation. The Norden method used in calculating this result is traceable to IDCA standards. Glucose 81 mg/dl 70-110 Normal (applies to non-numeric resul ts) [facility] Sulfasalazine has the potential to false ly depress Glucose results. Sulfapyridine has the potential to falsely elevate Glucose results. Baseline values before medication administration are recommended. Calcium 7.8 mg/dl 8.5-10.1 Below low normal [facility] Total Protein 6.4 g/dl 6.4-8.2 Normal (applies to non-numeric re sults) [facility] Albumin 2.9 g/dl 3.4-5.0 Below low normal [facility] Sodium 139 mEq/L 136-145 Normal (applies to non-numeric resul ts) [facility] Potassium 4.0 mEq/L 3.5-5.1 Normal (applies to non-numeric resul ts) [facility] Chloride 113.0 mEq/L 98.0-107.0 Above high normal [facility] Anion Gap 9.3 [facility] Carbon Dioxide 20.7 mMol/L 21.0-32.0 Below low normal [facility] The above 16 analytes were performed by [facility] [id number] Christo Hallman, ,[place] [address] ID Date Data Source [id number] 04/26/2021 05:20:00 AM EDT [facility] Name Value Range Interpretation Code Description Data Arabella rce(s) Supporting Document(s) Magnesium 2.1 mg/dl 1.6-2.6 Normal (applies to non-numeric resul ts) [facility] The above 1 analytes were performed by [facility] [id number] Christo Hallman[id number],[place] [address] ID Date Data Source [id number] 04/26/2021 04:54:00 AM EDT [facility] Name Value Range Interpretation Code Description Data Arabella rce(s) Supporting Document(s) WBC 7.39 x1000/ul 4.80-10.00 Normal (applies to non-numeric re sults) [facility] RBC 3.51 x1Mil/ul 4.20-5.40 Below low normal [facility] Hemoglobin 9.3 g/dl 12.0-16.0 Below low normal [facility] Hematocrit 30.1 % 37.0-47.0 Below low normal [facility] MCV 85.8 fL 81.0-99.0 Normal (applies to non-numeric resul ts) [facility] MCH 26.5 pg 27.0-31.0 Below low normal [facility] MCHC 30.9 g/dl 32.2-37.0 Below low normal [facility] RDW 15.4 % 11.5-14.5 Above high normal [facility] Platelet Count 256 x1000/ul 130-400 Normal (applies to non-numeric results) [facility] MPV 10.5 fL 9.4-12.4 Normal (applies to non-numeric resul ts) [facility] Neutrophils 48.7 % 40.0-74.0 Normal (applies to non-numeric resu lts) [facility] Lymphocytes 41.1 % 19.0-48.0 Normal (applies to non-numeric resu lts) [facility] Monocytes 7.3 % 3.4-9.0 Normal (applies to non-numeric resul ts) [facility] Eosinophils 1.6 % 0.0-7.0 Normal (applies to non-numeric resu lts) [facility] Basophils 0.9 % 0.0-2.0 Normal (applies to non-numeric resul ts) [facility] Immature Granulocytes 0.4 % 0.0-0.5 Normal (applies to non-nu meric results) [facility] Nucleated RBCs 0.00 % 0.00-0.20 Normal (applies to non-numeric r esults) [facility] Abs. Neutrophils 3.59 x1000/ul 1.92-8.31 Normal (applies to non-numeric results) [facility] Abs. Lymphocyte 3.04 x1000/ul 1.20-3.70 Normal (applies to non-n umeric results) [facility] Abs. Monocytes 0.54 x1000/ul 0.14-0.97 Normal (applies to non-nu meric results) [facility] Abs. Eosinophils 0.12 x1000/ul 0.00-0.76 Normal (applie s to non-numeric results) [facility] Abs. Basophils 0.07 x1000/ul 0.00-0.22 Normal (applies to non-n umeric results) [facility] Abs. Immature Gran. 0.03 x1000/ul 0.00-0.02 Above high normal [facility] Abs. Nucleated RBCs 0.00 x1000/ul 0.00-0.02 Normal (appl ies to non-numeric results) [facility] The above 24 analytes were performed by [facility] [id number], ,[place] [address] ID Date Data Source [id number] 04/26/2021 02:31:41 AM EDT [facility] Name Value Range Interpretation Code Description Data Arabella rce(s) Supporting Document(s) Care Plan [facility] HQIWHp7jAjXSXyYt86/KQXblXSRia0AtEJamWYl3GLbdBHEkK2OtGUS4cH8mYMX5LBfCOiOjNbMlFKU0 lbm [file] [id number]== ID Date Data Source [id number] 04/25/2021 11:21:00 PM EDT [facility] Name Value Range Interpretation Code Description Data Arabella rce(s) Supporting Document(s) Glucose, Fingerstick 84 mg/dl 70-110 Normal (applies to non-num madiha results) [facility] The above 1 analytes were performed by [facility] [id number], ,[place] [address] ID Date Data Source [id number] 04/25/2021 11:09:15 PM EDT [facility] Name Value Range Interpretation Code Description Data Arabella rce(s) Supporting Document(s) Nursing Note [facility] SLAXKr6gAcLIRxAq30/DGKrzHEIek4BjQXkhXRo8OJoiEBFyY2NnOQS5dQ6iYSD3GAxXIgCdVxCsDNT7 lbm ToSqbGAmVoFAYoMoaDFfIcFJorZzakcATmCG2RtDD9PAHrU97oNDRmHVYsY3FgZUPoXnz+Dw9XFEBebH TsFI1JZvyI7BaohksBTX3h7J+NizHc6X4ztLlySMXoVOGKKCIrk77owZCD3Cd7D7GnyW1ufPZYuKxyTK 1mHDFtVUVTGG3wauPLZnZ/+0rxLmXRJT4kNvro0MBY 139VkXfwyvNrIeUFUOJnZQ9pxpcdkoIrWrOvYQ/CVBiv1uNgZOoRkFHrqXiJqJ8dMLr7HliHfwAjIZFN d4M6QkNFUvmlBpgQmmh17qWVVPjfPj/qTFBacdBhnHNMfNzBYaOT8WK29kTfv9JWq1WJRTPjbhPnzeNE IJE5HdkdU9mivMkF8eH7ve49Udu6YGF0r3WRBRxTME AB8gN5j8PZ5o2ybGeE0eOZ+oirXtTpliWUWy7tYilSBHkGD8vpHrJDiIcKmGQtQmzFUxoFyzKRiNevEH NgdMjuO8+Maddy/+tiFfTh/Vt6HoLVLe9igskdRmXGJPpfqr7F9qPaSuzxLCH+fh0Wn5mTNaXY1Ryf5RUj [file] Q6RYY8mVTcGh1BHxVtMJGNGwBsJE2ALVe= ID Date Data Source [id number] 04/25/2021 07:08:57 PM EDT [facility] Name Value Range Interpretation Code Description Data Arabella rce(s) Supporting Document(s) H&P [facility] CPJJYt3gXxQGGjEy12/EFYcdKQBrc5YqJDjcTWu3JAejMNQzF7LxDOT1eN0vZGZ7NEnSUdRmMwClDWN7 lbm [file] MjEgMCBSDQogICAgICAvRjIgMjQgMCBSDQogICAgIC YwWdAxIkwqDMPYZBukTWSfXUHmOrOyVhDpMPATNKlhDXLhQJFwSyGcIdIjIZBAPx6SPcTsGHLhUU8wyq DdePH8UFV+Pz1IGLAkAB3HvJQKF1AfeORuDOrxE3TVWR5TAPP7NG0AdAYuAZ9YnKNKM7RjdGSqVk8eWR Jgx3ErDf5hZ9IDDRYHEZWwQPqdZUoyLMLgPJd7Z3N0 UVBtR6RYZ174cMQmgLi4Iv4pW0NDUZeEYuOoMKajJQacIBJwMJm7W6A5MOQeQ2MBO4XuLnUqhuEeI4O+ YrPjRZUDOQ6VDTMCZHd6K1K6jIAmX9J8cNuEgKC5DT0LSW1BrBPvfNJsw83+UoPLFpOlHFQmF2WTKCAW NlBpGWaqXMicSEEuLOe1I5B7NDDyG2MAY7dqR9x2VW 4+GyPLEbQxJZZvBs0UNmQmIq1YRpNfBX0ehg4TKwGdWIFeVosECuv3N5edjfx9sVYvIyO8M1B6XrI7tA TwST2WX2N8hOFzXEQ3IYBaiUZ+Qe3Rz7KxQBLkWRb4N6zhBJRaHBKrDsPmmV58V++0ygrtdBO1B8e7EX FAkECnoXxGlfDzR2fOHOU5r5U9MCv/Av6PJUM2aVq2 cAOhKILmSPu8oK8crHp0EaPlWN36PJXhPEkddM9zXlr5R3Sns0RjMi7mJt3xvPFfMy1KGlMjIMA4enDc WmYZLmO8uWfumvhqBQC2K1j9pHM5Ih41q7wxqnXzw1LrRrQ8KAjaPJPlWpXuxxMmSCS5nnKhcA7jmdNd Tx6NMENeICzdcwJmUeXRQf3JOmXtSM78DxgteF3gpO E+DQogICAgICAgICAgICAgICAgICAgICAgICAgICAgICAgICAgICAgICAgICAgICAgICAgICAgICAgIC AgICAgICAgICAgICAgICAgICAgICAgICAgICAgICAgICAgICAgICAgICAgDQogICAgICAgICAgICAgIC AgICAgICAgICAgICAgICAgICAgICAgICAgICAgICAg ICAgICAgICAgICAgICAgICAgICAgICAgICAgICAgICAgICAgICAgICAgICAgICAgICAgICAgDQogICAg ICAgICAgICAgICAgICAgICAgICAgICAgICAgICAgICAgICAgICAgICAgICAgICAgICAgICAgICAgICAg ICAgICAgICAgICAgICAgICAgICAgICAgICAgICAgIC AgICAgDQogICAgICAgICAgICAgICAgICAgICAgICAgICAgICAgICAgICAgICAgICAgICAgICAgICAgIC AgICAgICAgICAgICAgICAgICAgICAgICAgICAgICAgICAgICAgICAgICAgICAgDQogICAgICAgICAgIC AgICAgICAgICAgICAgICAgICAgICAgICAgICAgICAg ICAgICAgICAgICAgICAgICAgICAgICAgICAgICAgICAgICAgICAgICAgICAgICAgICAgICAgICAgDQog ICAgICAgICAgICAgICAgICAgICAgICAgICAgICAgICAgICAgICAgICAgICAgICAgICAgICAgICAgICAg ICAgICAgICAgICAgICAgICAgICAgICAgICAgICAgIC AgICAgICAgDQogICAgICAgICAgICAgICAgICAgICAgICAgICAgICAgICAgICAgICAgICAgICAgICAgIC AgICAgICAgICAgICAgICAgICAgICAgICAgICAgICAgICAgICAgICAgICAgICAgICAgDQogICAgICAgIC AgICAgICAgICAgICAgICAgICAgICAgICAgICAgICAg ICAgICAgICAgICAgICAgICAgICAgICAgICAgICAgICAgICAgICAgICAgICAgICAgICAgICAgICAgICAg DQogICAgICAgICAgICAgICAgICAgICAgICAgICAgICAgICAgICAgICAgICAgICAgICAgICAgICAgICAg ICAgICAgICAgICAgICAgICAgICAgICAgICAgICAgIC AgICAgICAgICAgDQogICAgICAgICAgICAgICAgICAgICAgICAgICAgICAgICAgICAgICAgICAgICAgIC QmKABaXNXtLWFuWXPnAJPaNOYgUKEeWZTuQKCfVZVhUOObCUEtPXMlMUMvAROeJPZbDGFgRFu5X1yeGE FwRLMfCR7zLNb7Di4+BZzUCiClQYP9mkOonM7FPV2m a3HpKUclPXRfc5XxXJt3MA2VYZFkIJnqIG4DZOsenp9FJPRpAVNxvDODc1uuRtNpDGT2GBIbJyrqWO9J DEUaQ0kotxWfXSFqQOUBFCiiKYRLEVlzVBNATATdWQUqTuBeCqVkJWXcJPZdQWMLYX0SMiMeZ3DpcL65 IDYNCj4+VSlhmvQhZowSIzC1ODJic5BoDKl6WI6BGA RpAzjao0IsHbfdLINBWGlvVK6XFKL5ZNS9LEUiTj4UTBIuI614jtPaTS7PPc7DDpSkKP4jjs7RNmcfGQ HbInyLDig4MGygMF1EvULxXBpZCnNhBslaFLQmsTK4SFL3OKL3YTCTNVZibXR8MxZ2AdUjSzGzLAV9ED GdSS6jKIueVM9IEEF6INytTXTaXZHxS2sTWlGjGQfl AUCkvKiqLY8EHlFiL9QedfKrqUOpVyNdBVZNEc7+ELnukeKqLvqWKzW6VHQud4BjXEu3AH4IKIDiLQyi EW6HRCUqpE8iTRetNC8MEzQlXSYpUYJAIuKcH25ixGHlGBk4J3FzTbEuVJLkLjsnQTJmDGrsLeRiHODy WyBdDQogID4+ID4+BXrsCX3ZKTyusaZjZWQiTp9XJK DqFTYnCY8aINNuFZCeQ4A2nTibVRRKLhBeH3vllewxNG2zYPGyT206kMhrbwXhTWG7QHAiJt2PHPZcMJ Z2GYBipYGmWhFkKWOTSRyuHI0PpJDdPGJ5bN9dYEqnBFSwDHQyL7jKCuCwwGlgJJ19mLfxqgUwsCYaTS o+Gh0SPF3qr7OtEGf6jbIqRImvKGC2OSxfBVHfJQLf RAVaYPD2BSP6AYWINyHuCCThDNUpGNmsEYYfYILvgd9LJGReTUVaXzH8DJGgEGJhSWDfQYiuHWTyHIJ5 ATYyDZZyQESnBO5JWaVoTYVgKQPkAYlnQDYuKXYipo3PHDBmERJmEsR9IwVzBWKeIYHbBSphIYIcFLHi SzMiPSEpPZSdWY2DQaRsYVPoZSSqEUamCYIhQFDtcd 8ESEAvVOScFmW9YyBqVAMaQBDnMHuaYRDfTZR0IQG9RVUpWFJuOE5EYeJfUCVzGMngReSdFISoTAHrnm 7LFXEpHWVdJNM7UFQwUMYmOKVuGTpbNRYmUOTgZFK0MDBnDLPrRJ9OAcHvXCVkWWAdJlBgRBYtGHKfpb 3PLDTbDYVlWCV6GBQaAPLxVLNjPNlnEKViVFC9PpH1 DFJiBHDrYA0EOmZoBSOzGST1HoAsVOLeUNDdug6GEBEwKFAyVJt3DHBcTEIlTKRmYKjqTFZkDOV3PBku FYTjLBPoLC4JOaGfPWBrHHHiRCPuWXTrBSHmzv3FFWRbCQWrZwI2EQDyCCZzMABpEZdnBBYhVPN0ZCQ1 JVBvEJTqWZ9CKlVfHRZjVUr7HvQyZGNyLNVfdj4PCY YlRUNfMYW4NOFtXGZlXATrRHkqDPGzIJS9Ziq1TQAjYIYhHD8WIeIjWFMeARs9ReSaDKTnRPGlcm9AMI FbDRCdSWaeSwTpLINiVGAfWRzbEQSrZRVrHCDaWCAgNXDgZH2PCiIuIQOyKjEbGsKzMYNhAMFxrv3BJH BzRPHfXJC6WUBoFLUtRGZvZMstQHKuVEEjOSc5AATw YDLoDM7JFmSvTUJvEhO3EmObAHKdKGYvtl3YHBZoZFXxTcZqXzOxKLTnFQNhPWwnSFYiDTZpFHK5ZEDe VHKzXK4JEmTrBPEsAzFeKzTaSUZrRNZscj9QOFWvIYSsFdIcEPHyOAMaDYMkNKufPXYuBSR6ZDloXSSo OTZaNT1PGzKjHPFpXkMuTWCqQFIaVGFhfm6RYLPoZC CxTGR5HYBfSVXuLDVbUOz9fnQvoHEsWXs9JB8XT4QvyqJeIqdSFv8Bd754NJB8KBQgFl6IK5ctLo4aWL PbPZSUJp1JCVw2FFSbIRSvH8ZtSjK7EDodXTLnEQbhUcOpUALtSRUyIDF+HFn5TDKgXQE2TyQvMMabS5 Q1TKDwIXJtZCBgWlUkYONmOH9bESGSZp2+BKjekLSsdRcbPBYOBxL5TCIgDVowUDHRZj3D ID Date Data Source [id number] 04/25/2021 06:53:16 PM EDT [facility] Name Value Range Interpretation Code Description Data Arabella rce(s) Supporting Document(s) Care Plan [facility] ACFAUb8fXpYJXiNz47/BAEckEBXnz1FnIKtzHSo3DKgyFUYzR2CqWEP3wE8jPLS4KNpZStCpIoTzBWA2 lbm [file] ICAgICAgICAgICAgICAgICAgICAgICAgICAgICAgIC AgICAgICAgICAgICAgICAgICAgICAgICAgICAgICAgICANCiAgICAgICAgICAgICAgICAgICAgICAgIC AgICAgICAgICAgICAgICAgICAgICAgICAgICAgICAgICAgICAgICAgICAgICAgICAgICAgICAgICAgIC AgICAgICAgICAgICAgICANCiAgICAgICAgICAgICAg ICAgICAgICAgICAgICAgICAgICAgICAgICAgICAgICAgICAgICAgICAgICAgICAgICAgICAgICAgICAg ICAgICAgICAgICAgICAgICAgICAgICAgICANCiAgICAgICAgICAgICAgICAgICAgICAgICAgICAgICAg ICAgICAgICAgICAgICAgICAgICAgICAgICAgICAgIC AgICAgICAgICAgICAgICAgICAgICAgICAgICAgICAgICAgICANCiAgICAgICAgICAgICAgICAgICAgIC AgICAgICAgICAgICAgICAgICAgICAgICAgICAgICAgICAgICAgICAgICAgICAgICAgICAgICAgICAgIC AgICAgICAgICAgICAgICAgICANCiAgICAgICAgICAg ICAgICAgICAgICAgICAgICAgICAgICAgICAgICAgICAgICAgICAgICAgICAgICAgICAgICAgICAgICAg ICAgICAgICAgICAgICAgICAgICAgICAgICAgICANCiAgICAgICAgICAgICAgICAgICAgICAgICAgICAg ICAgICAgICAgICAgICAgICAgICAgICAgICAgICAgIC AgICAgICAgICAgICAgICAgICAgICAgICAgICAgICAgICAgICAgICANCiAgICAgICAgICAgICAgICAgIC AgICAgICAgICAgICAgICAgICAgICAgICAgICAgICAgICAgICAgICAgICAgICAgICAgICAgICAgICAgIC AgICAgICAgICAgICAgICAgICAgICANCiAgICAgICAg ICAgICAgICAgICAgICAgICAgICAgICAgICAgICAgICAgICAgICAgICAgICAgICAgICAgICAgICAgICAg ICAgICAgICAgICAgICAgICAgICAgICAgICAgICAgICANCiAgICAgICAgICAgICAgICAgICAgICAgICAg ICAgICAgICAgICAgICAgICAgICAgICAgICAgICAgIC AgICAgICAgICAgICAgICAgICAgICAgICAgICAgICAgICAgICAgICAgICANCjw/wLMtN4qxvGJkpjB8C0 ykPt2CSo4BDH8up7QuFBSdWCvqqaOmOslBNzKaGYIcSuoYDuw1JGpjQC0IhIHvK4XmH8YiPUcdTP7NJK HjDNWfnNPeSXAzGZIbHfG6FNVaPGnvZR5YlYRiCJen MCLgVGFkAfUsLZTjPZMbRWXoOHMtNEURPL1PRiBeA8EmiX92ZOXMCe1+KPulgwGuQfkAIkAvIZEbl3Hj ATa2JN7AAKKwEobri6NtFpUwIVNWRJuuXE0IZIP0MHHxBTHyBb9PPTEqR802qaKgZV0XMr1XWtNvFL1q vc8FZwQxVKGjEchQSao3YWziFE9DrRTlVZlVDEItMR KbAG1jLwjuRQD4m53xFH6oxNhzHo3yAZVfGX0gHi3sHOWoMFC7GsRsEUCTLH2IPHTaUVZdvFGoLRCzCB LDXS3JDBwuTVL6UflukaRiwXYuWXsbHQ5OYFMyulMqTvJiHIZNKXe+Ht4JQP3tg6MeKWpgFkUmUL0lpg 8CHSiSPsWrA8W7kSJaJ7K0CMzfQy4AXDWqOQFnAypf FFXNMCzxBV6NIX6trkC8YU6JyBXnOJXyDDHiyGZkSVn2N04jrTIkQZrkHW1QGFR+Mau+Bf1RAMJlEIKt JEOqTrGyUOQISmAhZ9XiU0LXi5SeJ0RaRN79qBjmqgBzFKbvZV0JEG6iZZOfKUVFGN8SfMJuwZ8brxHu KYVaJFTLKmYeL41ozMBuFLEcHCGkXDPlXj7BONNxB4 RphtSxhVoijvVsPASzEIAXSQ8CZAtjsvWgeDDptBmaOD74eSctXI8XSg6LOcCiQC9zhn2QdKKpJk5HHZ TjKR6QCLNdPDDuGBEgRWR0INRsJdZuTEjhVZCtSWMnHCO4LFSuXBDzPY8MFnWgRRCzBtX0SiZaLNHnIY Deoa5DBESuLMYrLCKyFwMoKPXeUVJuBRzoEJJzSEJt TRM5OPZjPDTcLM3RVyIxLUIoSWZkVYObBNAwAOBpqx6COCEzSHXdQcZ9TiCqJQLbZEVsNPwzSIRgLQC4 OyJ0NEEmGTXuVY1RFbYtWDKrOPW6QGReJXAfSTJoyb8GRBHfDVDkQqB8HRBtUXNiBCOvJYvhZTMsXBI9 OAc0YFMqTQLkHA8JLgHqVHRkXIf3XnRdIZWaWZRdyq 4ROTEbBZIpPIM0NIXjNMHwGDLrYRjmZLKyKCL8ROO5GHTcDXTkQX1CQzXkGGKwZElvSkPiXILkAPUcar 2AJDSqAQMvVHNyPWVwLWQlZUYeHEwfKEDaNBVsPsj2OOOuVGVzWP6MDhBxSGFnBIE3UyFdQULnEGQthd 8AMFRfNIRhBZb4FQWuDSRiMYXcWJjpTWGlFAJaSIV1 YEKhJNQqBV7OWhVvZCOkWnT1TtXtLUTvASBfai2EHMQwZXAbUrSzVoSrDDPjUVNmYNkeQXEzTCLqXIab PDTuIPFaAZ2IWjZlPENnRzOnDJbkFJEsZLQqeg4IHARzBPDgGUy2HOBqTCQwJAMpPVdpDGXeSZY6HPY3 TDXbLABpUD8FAiWmWVQgFuZuADHbMLKuWVZnmz3BPM OsHNHqOsC9DhBbSRVrSIEqOTggENQwDJM3FSzqBSCiOWDvNX2CJxHtITMkIoW2PYNcZLVsZPImjy5WDL SuRKJwKuN8QzIfETCvKNOcCCcjDAEjJTR1FHC6EDVlZXIqVT9KPiPuYFRxOms4IFNsNADgRIEkou4RNX TsQCPaQHc7ZOZvOYClYKHnWJi7wvRfvADpAOv7TQ5L M0IlslZtOuTCNw9Xj051POJsMTBbXf0KN6jkYm9iESPnWGJDLp8FGXa1ZSR9IkIrYXJ3YZM7ZyHySRf6 SUApYcb4ESFfPNR7Imf+KWu8FGYoHNEgVyB3XLswMYXgMGt3UVTgUuygWJAjLIppGP8pGRKHAa0+DQpz cPFboVgvSXOQDrB6QRd5DSfvORAPJj6J ID Date Data Source [id number] 04/25/2021 05:55:38 PM EDT [facility] Name Value Range Interpretation Code Description Data Arabella rce(s) Supporting Document(s) Consults [facility] JCLOQm6kZnAIItIj72/MGVliZETtw7LpVFodECt0PJkmBOIaD5KqGBO2vR8xKAU2KGyIUpHyRyNtXET5 lbm [file] CARLOS A+vMzEvtZhJrY1lPhMOw3OpwZMGd9hroXpLxb9doG [file] f3Mvt5PjHiVhXoQg9yAZNLKw3+BJldnGMffPepSPLOXyHvVALqDMarANUKRc1H ID Date Data Source [id number] 04/25/2021 05:13:00 PM EDT [facility] Name Value Range Interpretation Code Description Data Arabella rce(s) Supporting Document(s) Urine Color Yellow Light-Yellow,Yellow Normal (applies to no n-numeric results) [facility] Urine Appearance CLEAR CLEAR Normal (applies to non-numeric results) [facility] Urine Specific [place] 1.034 1.015-1.025 Above high normal [facility] Urine pH 6.5 5.0-7.0 Normal (applies to non-numeric resul ts) [facility] Urine Protein TR NEG Abnormal (applies to non-numeric results) [facility] Urine Glucose NEG NEG Normal (applies to non-numeric re sults) [facility] Urine Ketone NEG NEG Normal (applies to non-numeric res ults) [facility] Urine Bilirubin NEG NEG Normal (applies to non-numeric results) [facility] Urine Blood NEG NEG Normal (applies to non-numeric resu lts) [facility] Urine Urobilinogen NORM <0.2,1.0,<2.0,0.2 Abnormal (a pplies to non-numeric results) [facility] Urine Leukocyte Esterase NEG NEG Normal (applies to non -numeric results) [facility] Urine Nitrite NEG NEG Normal (applies to non-numeric re sults) [facility] The above 12 analytes were performed by [facility] [id number], ,[place] [address] ID Date Data Source [id number] 04/25/2021 05:04:00 PM EDT [facility] Name Value Range Interpretation Code Description Data Arabella rce(s) Supporting Document(s) T3 65.42 ng/dl 60.00-181.00 Normal (applies to non-numeric re sults) [facility] The above 1 analytes were performed by [facility] [id number], ,[place] [address] ID Date Data Source [id number] 04/25/2021 04:45:00 PM EDT [facility] Name Value Range Interpretation Code Description Data Arabella rce(s) Supporting Document(s) PT, No Coag Tx/Coag Tx Unk 11.7 Seconds 10.2-12.9 Judith l (applies to non-numeric results) [facility] Attention: Effeciive 01/03/2020 The nor mal [...] 0.9-1.1 Nor mal (applies to non-numeric results) [facility] Suggested therapeutic INR ranges for ora l anticoagulant therapy: Indication:INRPrevention and treatment of DVT and PE2.0 - 3.0Prevention of systemic embolism with atrial fib., acute MN and 2.0 -3.0 tissue prosthetic heart valves.Prevention of systemic embolism in patients with mechanical heart2.5 -3.5 valves.NOTE: The INR is only valid for patients on stable oral anticoagulanttherapy. The above 2 analytes were performed by [facility] [id number], ,[place] [address] ID Date Data Source [id number] 04/25/2021 04:45:00 PM EDT [facility] Name Value Range Interpretation Code Description Data Arabella rce(s) Supporting Document(s) PTT, No Coag Tx/Coag Tx Unk 30.1 Seconds 25.1-36.5 Norm al (applies to non- numeric results) [facility] Attention: Effective 01/03/2020Please no te the change in reference range for PTT (No Coag Tx/Coag TxUnk) ResultsPrevious Reference Range: 24.9-30.6 secondsNew Reference Range: 25.1-36.5 secondsDiscrepant results may occur due to anticoagulant effects such asheparin, direct thrombin inhibitors; argatroban (Acova), bivalirudin(Angiomax) or dabigatran (Pradaxa) or direct factor Xa inhibitors;rivaroxaban (Xarelto), apixaban (Eliquis) and edoxaban (Savaysa).The above 1 analytes were performed by [facility] [id number], ,[place] [address] ID Date Data Source [id number] 04/25/2021 04:33:00 PM EDT [facility] Name Value Range Interpretation Code Description Data Arabella rce(s) Supporting Document(s) WBC 6.78 x1000/ul 4.80-10.00 Normal (applies to non-numeric re sults) [facility] RBC 3.60 x1Mil/ul 4.20-5.40 Below low normal [facility] Hemoglobin 9.3 g/dl 12.0-16.0 Below low normal [facility] Hematocrit 30.3 % 37.0-47.0 Below low normal [facility] MCV 84.2 fL 81.0-99.0 Normal (applies to non-numeric resul ts) [facility] MCH 25.8 pg 27.0-31.0 Below low normal [facility] MCHC 30.7 g/dl 32.2-37.0 Below low normal [facility] RDW 15.3 % 11.5-14.5 Above high normal [facility] Platelet Count 266 x1000/ul 130-400 Normal (applies to non-numeric results) [facility] MPV 10.1 fL 9.4-12.4 Normal (applies to non-numeric resul ts) [facility] Neutrophils 43.7 % 40.0-74.0 Normal (applies to non-numeric resu lts) [facility] Lymphocytes 44.7 % 19.0-48.0 Normal (applies to non-numeric resu lts) [facility] Monocytes 9.1 % 3.4-9.0 Above high normal [facility] Eosinophils 1.3 % 0.0-7.0 Normal (applies to non-numeric resu lts) [facility] Basophils 0.9 % 0.0-2.0 Normal (applies to non-numeric resul ts) [facility] Immature Granulocytes 0.3 % 0.0-0.5 Normal (applies to non-nu meric results) [facility] Nucleated RBCs 0.00 % 0.00-0.20 Normal (applies to non-numeric r esults) [facility] Abs. Neutrophils 2.96 x1000/ul 1.92-8.31 Normal (applies to non-numeric results) [facility] Abs. Lymphocyte 3.03 x1000/ul 1.20-3.70 Normal (applies to non-n umeric results) [facility] Abs. Monocytes 0.62 x1000/ul 0.14-0.97 Normal (applies to non-nu meric results) [facility] Abs. Eosinophils 0.09 x1000/ul 0.00-0.76 Normal (applie s to non-numeric results) [facility] Abs. Basophils 0.06 x1000/ul 0.00-0.22 Normal (applies to non-n umeric results) [facility] Abs. Immature Gran. 0.02 x1000/ul 0.00-0.02 Normal (appl ies to non-numeric results) [facility] Abs. Nucleated RBCs 0.00 x1000/ul 0.00-0.02 Normal (appl ies to non-numeric results) [facility] The above 24 analytes were performed by [facility] [id number], ,[place] [address] ID Date Data Source [id number] 04/25/2021 05:24:00 PM EDT [facility] Name Value Range Interpretation Code Description Data Arabella rce(s) Supporting Document(s) Lipase 162 IU/L 73-393 Normal (applies to non-numeric resul ts) [facility] The above 1 analytes were performed by [facility] [id number], ,[place] [address] ID Date Data Source [id number] 04/25/2021 05:24:00 PM EDT [facility] Name Value Range Interpretation Code Description Data Arabella rce(s) Supporting Document(s) Magnesium 2.3 mg/dl 1.6-2.6 Normal (applies to non-numeric resul ts) [facility] The above 1 analytes were performed by [facility] [id number], ,[place] [address] ID Date Data Source [id number] 04/25/2021 05:24:00 PM EDT [facility] Name Value Range Interpretation Code Description Data Arabella rce(s) Supporting Document(s) AST 11 IU/L 15-37 Below low normal [facility] Sulfasalazine and sulfapyridine have the potential to falsely depressAspartate Aminotransferase results. Baseline values before medication administration are recommended. ALT 17 IU/L 13-56 Normal (applies to non-numeric resul ts) [facility] Sulfasalazine and sulfapyridine have the potential to falsely depressAlanine Aminotransferase results. Baseline values before medication administration are recommended. Alkaline Phosphatase 56 mIU/ml 50-136 Normal (applies to non-num madiha results) [facility] Total Bilirubin 0.80 mg/dl 0.20-1.00 Normal (applies to non-numeric results) [facility] Blood Urea Nitrogen 12 mg/dl 7-18 Normal (applies to non-nume ny results) [facility] Creatinine 0.69 mg/dl 0.51-0.95 Normal (applies to non-numeric resul ts) [facility] N-Acetylcysteine (NAC) and Metamizole em ve the potential to falselydepress Creatinine results. Baseline values before medication adminstration are recommended. Patients undergoing treatment with phenindione will have falselydepressed results. Patients on phenindione therapy should be tested with an alternativeCREA method.Toxic levels of acetaminophen may lead to falsely depressed results forpatient samples. Glomerular Filtration Rate >90.00 mL/min/1.73m2 [facility] GFR Reference Ranges:Normal Function or Mild [...] of Health and the National KidneyFoundation. The Norden method used in calculating this result is traceable to IDMS standards. Glucose 81 mg/dl 70-110 Normal (applies to non-numeric resul ts) [facility] Sulfasalazine has the potential to false ly depress Glucose results. Sulfapyridine has the potential to falsely elevate Glucose results. Baseline values before medication administration are recommended. Calcium 7.8 mg/dl 8.5-10.1 Below low normal [facility] Total Protein 6.4 g/dl 6.4-8.2 Normal (applies to non-numeric re sults) [facility] Albumin 3.0 g/dl 3.4-5.0 Below low normal [facility] Sodium 140 mEq/L 136-145 Normal (applies to non-numeric resul ts) [facility] Potassium 4.0 mEq/L 3.5-5.1 Normal (applies to non-numeric resul ts) [facility] Chloride 113.0 mEq/L 98.0-107.0 Above high normal [facility] Anion Gap 10.2 [facility] Carbon Dioxide 20.8 mMol/L 21.0-32.0 Below low normal [facility] The above 16 analytes were performed by [facility] [id number], ,[place] [address] ID Date Data Source [id number] 04/25/2021 05:24:00 PM EDT [facility] Name Value Range Interpretation Code Description Data Arabella rce(s) Supporting Document(s) TSH 28.10 uIU/ml 0.36-3.74 Above high normal [facility] Concentrations of Biotin above 100 ng/mL can potentially result ininterference.The above 1 analytes were performed by [facility] [id number], ,[place] [address] ID Date Data Source [id number] 04/25/2021 05:24:00 PM EDT [facility] Name Value Range Interpretation Code Description Data Arabella rce(s) Supporting Document(s) T4, Free 0.63 ng/dl 0.59-1.61 Normal (applies to non-numeric resul ts) [facility] The above 1 analytes were performed by [facility] [id number], ,[place] [address] ID Date Data Source [id number] 04/25/2021 03:04:52 PM EDT [facility] Name Value Range Interpretation Code Description Data Arabella rce(s) Supporting Document(s) Progress Notes [facility] [id number] lbm [file] [id number] ID Date Data Source [id number] 04/25/2021 07:30:00 AM EDT [facility] CT SCAN OF THE ABDOMEN AND [...] rce(s) Supporting Document(s) ID Date Data Source [id number] 04/25/2021 04:43:00 AM EDT [facility] Name Value Range Interpretation Code Description Data [facility] rce(s) Supporting Document(s) COVID-19 NEGATIVE [facility] This lab was ordered by [facility] and reported by [facility]. ID Date Data Source [id number] 04/25/2021 05:04:00 AM EDT [facility] [id number] Name Value Range Interpretation Code Description Data [facility] rce(s) Supporting Document(s) COVID-19 NEGATIVE NEGATIVE [facility] Negative results should be treated as pr [...] are for the indentification of SARS-CoV-2 RNA. [id number]-[id number] RNA is generally detectable in respiratorysamples during the actue phase of infection. ID Date Data Source [id number] 04/25/2021 01:27:00 AM ED[facility] [id number] Name Value Range Interpretation Code Description Data Arabella rce(s) Supporting Document(s) TSH 44.303 uIU/mL 0.358-3.74 H [facility] ID Date Data Source [id number] 04/25/2021 01:24:00 AM EDT [facility] [id number] Name Value Range Interpretation Code Description Data Arabella rce(s) Supporting Document(s) LACTIC ACID 0.8 mmol/L 0.4-2.0 [facility] ID Date Data Source [id number] 04/25/2021 01:24:00 AM EDT [facility] [id number] Name Value Range Interpretation Code Description Data Arabella rce(s) Supporting Document(s) C REACTIVE PROTEIN < 0.5 mg/L 0.0-3.0 [facility] ital ID Date Data Source [id number] 04/25/2021 01:24:00 AM EDT [facility] [id number] Name Value Range Interpretation Code Description Data Arabella rce(s) Supporting Document(s) MAGNESIUM 2.3 mg/dL 1.8-2.4 [facility] ID Date Data Source [id number] 04/25/2021 01:24:00 AM EDT [facility] TSYSORDER [id number] R [id number] Name Value Range Interpretation Code Description Data Arabella rce(s) Supporting Document(s) LIPASE 308 U/L 73-393 [facility] ID Date Data Source [id number] 04/25/2021 01:24:00 AM EDT [facility] TSYSORDER [id number] R [id number] Name Value Range Interpretation Code Description Data Arabella rce(s) Supporting Document(s) GLUCOSE 93 mg/dL 74-106 [facility] BLOOD UREA NITROGEN 19 mg/dL 7-18 H [facility] ital CREATININE 0.80 mg/dL 0.6-1.0 [facility] SODIUM 137 mmol/L 136-145 [facility] POTASSIUM 5.2 mmol/L 3.5-5.1 H [facility] CHLORIDE 103 mmol/L 98-107 [facility] CO2 23 mmol/L 21-32 [facility] CALCIUM 9.2 mg/dL 8.5-10.1 [facility] ANION GAP 11.0 mmol/L 5-12 [facility] GLOMERULAR FILTRATION RATE 80 mL/min [facility] GFR IS CALCULATED IN mL/min/1.73m2 JUDITH L FUNCTION: >90MILDLY DECREASED: 60-89MILDY TO MODERATELY DECREASED: 45-59 MODERATELY TO SEVERELY DECREASED: 30-44SEVERELY DECREASED: 15-29RENAL FAILURE: <15 AST 28 U/L 15-37 [facility] ALT 24 U/L 12-78 [facility] ALKALINE PHOSPHATASE 70 U/L 46-116 [facility] TOTAL BILIRUBIN 0.5 mg/dL 0.2-1.0 [facility] TOTAL PROTEIN 7.9 g/dl 6.4-8.2 [facility] ALBUMIN 3.7 gm/dL 3.4-5.0 [facility] ID Date Data Source [id number] 04/25/2021 12:58:00 AM EDT [facility] TSYSORDER [id number] Name Value Range Interpretation Code Description Data Arabella rce(s) Supporting Document(s) WHITE BLOOD COUNT 9.7 K/mm3 4.0-10.0 [facility] al RED BLOOD COUNT 4.28 M/mm3 4.00-5.50 [facility] HEMOGLOBIN 11.1 gm/dL 12.0-16.0 L [facility] HEMATOCRIT 34.7 % 36.0-48.8 L [facility] MEAN CELL VOLUME 81.1 fl 80-96 [facility] MEAN CORPUSCULAR HEMOGLOBIN 25.9 pg 27.0-31.0 L [facility] MEAN CORPUSCULAR HGB CONC 32.0 g/dl 32.0-36.0 [facility] RED CELL DISTRIBUTION WIDTH 15.1 % 10.0-14.5 H [facility] PLATELET COUNT 169 K/mm3 172-450 L [facility] MEAN PLATELET VOLUME 11.9 fl 9.0-13.0 [facility] pital GRAN % 49.6 % 50-80.0 L [facility] IG% 0.1 % 0.0-0.2 [facility] LYMPH % 39.5 % 25.0-50.0 [facility] MONO % 8.5 % 2.0-10.0 [facility] EOS % 1.4 % 0-5.0 [facility] BASO % 0.9 % 0.0-2.0 [facility] GRAN # 4.8 K/mm3 2.0-8.00 [facility] IG# 0.0 K/mm3 0.0-0.2 [facility] LYMPH # 3.8 K/mm3 1.0-5.0 [facility] MONO # 0.8 K/mm3 0.10-1.20 [facility] EOS # 0.1 K/mm3 0.0-0.5 [facility] BASO # 0.1 K/mm3 0.0-0.2 [facility] ID Date Data Source [id number] 04/16/2021 06:48:00 PM EDT [facility] Patient: SIENNA FOSTER Observation [facility]VisitID: [id number] [place] [address] [phone], FRegistration Date/Time: 04/12/2021 20:14 Weight:74.8 kg (S). [...] 125 mcg) 1 tablet, daily, last dose 21am. Allergies:Amitriptyline.(hives) (suicidal thoughts)Bees.(Anaphylaxis)Maxalt.(Anaphylaxis) (coma)Seasonal. FAMILY HISTORYNo significant family medical history. (Electronically signed by Harley Morgan PA-C 04/13/2021 01:06) Name Value Range Interpretation Code Description Data Arabella rce(s) Supporting Document(s) ID Date Data Source [id number] 04/13/2021 06:12:00 PM EDT [facility] DATE OF EXAMINATION: 04/12/2021 21:05 EDT [...] rce(s) Supporting Document(s) ID Date Data Source [id number] 04/12/2021 10:15:00 PM EDT [facility] TSYSORDER [id number] Name Value Range Interpretation Code Description Data Arabella rce(s) Supporting Document(s) LIPASE 368 U/L 73-393 [facility] ID Date Data Source [id number] 04/12/2021 10:15:00 PM EDT [facility] [id number] Name Value Range Interpretation Code Description Data Arabella rce(s) Supporting Document(s) GLUCOSE 87 mg/dL 74-106 [facility] BLOOD UREA NITROGEN 19 mg/dL 7-18 H [facility] ital CREATININE 0.82 mg/dL 0.6-1.0 [facility] SODIUM 139 mmol/L 136-145 [facility] POTASSIUM 4.3 mmol/L 3.5-5.1 [facility] CHLORIDE 103 mmol/L 98-107 [facility] CO2 24 mmol/L 21-32 [facility] CALCIUM 9.7 mg/dL 8.5-10.1 [facility] ANION GAP 12.0 mmol/L 5-12 [facility] GLOMERULAR FILTRATION RATE 78 mL/min [facility] GFR IS CALCULATED IN mL/min/1.73m2 JUDITH L FUNCTION: >90MILDLY DECREASED: 60-89MILDY TO MODERATELY DECREASED: 45-59 MODERATELY TO SEVERELY DECREASED: 30-44SEVERELY DECREASED: 15-29RENAL FAILURE: <15 AST 10 U/L 15-37 [facility] ALT 26 U/L 12-78 [facility] ALKALINE PHOSPHATASE 77 U/L 46-116 [facility] pital TOTAL BILIRUBIN 0.6 mg/dL 0.2-1.0 [facility] TOTAL PROTEIN 8.5 g/dl 6.4-8.2 H [facility] ALBUMIN 4.0 gm/dL 3.4-5.0 [facility] ID Date Data Source [id number] 04/12/2021 10:13:00 PM EDT [facility] [id number] Name Value Range Interpretation Code Description Data Arabella rce(s) Supporting Document(s) HCG,SERUM NEGATIVE NEGATIVE [facility] False negative results may occur when th e levels of hCG arebelow the sensitivity level of the test. If isstill suspected, a first morning urine specimen should becollected 48hrs later.This test has a sensitivity of 10mIU/mL in serum dsp26mDU/mL in urine. ID Date Data Source [id number] 04/12/2021 09:56:00 PM EDT [facility] TSYSORDER [id number] Name Value Range Interpretation Code Description Data Arabella rce(s) Supporting Document(s) WHITE BLOOD COUNT 10.7 K/mm3 4.0-10.0 [facility] RED BLOOD COUNT 4.20 M/mm3 4.00-5.50 [facility] l HEMOGLOBIN 11.1 gm/dL 12.0-16.0 L [facility] HEMATOCRIT 33.5 % 36.0-48.8 L [facility] MEAN CELL VOLUME 79.8 fl 80-96 L [facility] l MEAN CORPUSCULAR HEMOGLOBIN 26.4 pg 27.0-31.0 L [facility] MEAN CORPUSCULAR HGB CONC 33.1 g/dl 32.0-36.0 [facility] RED CELL DISTRIBUTION WIDTH 15.7 % 10.0-14.5 H [facility] PLATELET COUNT 358 K/mm3 172-450 [facility] MEAN PLATELET VOLUME 10.7 fl 9.0-13.0 [facility] pital GRAN % 62.7 % 50-80.0 [facility] IG% 0.2 % 0.0-0.2 [facility] LYMPH % 27.7 % 25.0-50.0 [facility] MONO % 8.4 % 2.0-10.0 [facility] EOS % 0.5 % 0-5.0 [facility] BASO % 0.5 % 0.0-2.0 [facility] GRAN # 6.7 K/mm3 2.0-8.00 [facility] IG# 0.0 K/mm3 0.0-0.2 [facility] LYMPH # 3.0 K/mm3 1.0-5.0 [facility] MONO # 0.9 K/mm3 0.10-1.20 [facility] EOS # 0.1 K/mm3 0.0-0.5 [facility] BASO # 0.1 K/mm3 0.0-0.2 [facility] ID Date Data Source [id number] 04/12/2021 09:16:00 PM EDT [facility] TSYSORDER [id number] Name Value Range Interpretation Code Description Data Arabella rce(s) Supporting Document(s) URINE RBC 1-3 /hpf 0-3 [facility] URINE WBC 0-2 /hpf 0-5 H [facility] URINE EPITHELIAL CELLS 1+ /hpf 0 [facility] ospital URINE BACTERIA 3+ NONE SEEN H [facility] ID Date Data Source [id number] 04/12/2021 09:15:00 PM EDT [facility] ital TSYSORDER [id number] Name Value Range Interpretation Code Description Data Arabella rce(s) Supporting Document(s) URINE COLOR. [facility] URINE APPEARANCE CLEAR [facility] URINE GLUCOSE (UA) NEGATIVE mg/dL NEGATIVE [facility] URINE BILIRUBIN NEGATIVE NEGATIVE [facility] URINE KETONE NEGATIVE mg/dL NEGATIVE [facility] SPECIFIC GRAV[facility],URINE 1.020 1.005-1.030 [facility] URINE BLOOD TRACE NEGATIVE [facility] PH,URINE 5.5 5.0-9.0 [facility] URINE PROTEIN NEGATIVE mg/dL NEGATIVE [facility] UROBILINOGEN NORMAL(0.2-1) mg/dL 0-1 [facility] URINE NITRATE NEGATIVE NEGATIVE [facility] URINE LEUKOCYTE ESTERASE NEGATIVE NEGATIVE [facility] ID Date Data Source [id number] 04/02/2021 12:00:00 AM EDT [facility] Name Value Range Interpretation Code Description Data Arabella rce(s) Supporting Document(s) SARS-CoV-2 NEGATIVE [facility] This lab was ordered by [employer] [facility]-COVID19 and reported by [employer]. ID Date Data Source [id number] 04/02/2021 12:00:00 AM EDT EXPO ([employer] [facility]) Name Value Range Interpretation Code Description Data Arabella rce(s) Supporting Document(s) SARS-CoV-2 (COVID-19) RNA [Presence] in Respiratory specimen by MELINDA with probe detection negative negative Sars-cov-2 DAVID ([employer] [facility]) ID Date Data Source [id number] 04/02/2021 12:00:00 AM EDT DAVID ([employer] [facility]) Name Value Range Interpretation Code Description Data Arabella rce(s) Supporting Document(s) ID Date Data Source [id number] 03/31/2021 07:42:12 PM EDT [facility] Name Value Range Interpretation Code Description Data Arabella rce(s) Supporting Document(s) Discharge Summary [facility] VWLPVc8oTdPFQiQy17/AUNrmDLAix3FvMYwtVLq7GElgTMVyV8FvFYQ7bX0cLLS1XFgOAwIgKoGmFGEs lbm [file] ICAgICAgICAgICAgICAgICAgICAgICAgICAgICAgIC JcLCCpRTFdIMVbURIfBOGzICSfEO3RFZIbLYWkAJYzRGKhDXKyXUQjDCIbDSDqHHVhJDJbOYYhACTqOB AgICAgICAgICAgICAgICAgICAgICAgICAgICAgICAgICAgICAgICAgICAgICAgICAgICAgICAgICAgIC MeWD5PUVPpGDPePVOoKJEmQWKdNJDkCAFkAZKsJGDh ICAgICAgICAgICAgICAgICAgICAgICAgICAgICAgICAgICAgICAgICAgICAgICAgICAgICAgICAgICAg VBUqNBIxDRVlFKUzEQ8COKPiLOOtIIQiPNUsLRXoLEHhXUDmRQGgQWVlXLQgNYJtDSOvVTOpJXTeUBAl ICAgICAgICAgICAgICAgICAgICAgICAgICAgICAgIC IvHTYzLNQtRORjBRLmCIUlTYAaTKLzON4BZSJqRMBkECFbYSAtVGVxFZKxXRRjPEWgDNVoTHUmBESqWR AgICAgICAgICAgICAgICAgICAgICAgICAgICAgICAgICAgICAgICAgICAgICAgICAgICAgICAgICAgIC VtFIHiUG6AOIPsCNHyPFAjYSOpNUMuHIFhYESeDBYy ICAgICAgICAgICAgICAgICAgICAgICAgICAgICAgICAgICAgICAgICAgICAgICAgICAgICAgICAgICAg WPSgBBLvDLAdFTDvKYZyNE7VMZMuSJYhACJyRMIvHSUfIHFpXRSrXBNsJGFsJVFoWUYcODElRWOoTYDy ICAgICAgICAgICAgICAgICAgICAgICAgICAgICAgIC AcIELxRZUxBGQoZHXnXZNbFAQfRPQxXKFwIO4DQMCeQNVrUPAeNGVyHRTdPVVfDUQxOGXcWWHyBPKcJW AgICAgICAgICAgICAgICAgICAgICAgICAgICAgICAgICAgICAgICAgICAgICAgICAgICAgICAgICAgIC EgXEOcKTHlUB3BYYPcWYEiTAOhTAEhCHGlHZLzSMSw ICAgICAgICAgICAgICAgICAgICAgICAgICAgICAgICAgICAgICAgICAgICAgICAgICAgICAgICAgICAg ZUXlTGNgGARfOSGdFLMzFLTgRQ9WKKKxYOCbWLLtGARwKBSaXSJhMGKxEOThRUCzIZByOITiMQCyDJJp ICAgICAgICAgICAgICAgICAgICAgICAgICAgICAgIC QaJOIqIUKnOWGdEDFlPCYjTMIgPMOoYRWwMDUbZU6QVD03jWYke4Q5NUUyGM5styc/Lm1TRIvzvxXmmY GkOW2PRuQgCH0ajy5GMeFlII5nmc7KWBqNQuWvK3C5wYVlBWMnHEBIBqGnC41qLXhzTm09DAqrUZXtRv JaFKq1Hs4HKxSpL8qhVOElEoR0PCOfAgL8DCFwNnA8 KYIiLxZvHFUuJWBmKOLpXMJJFDW4HAVtMbZpCRyeCI7Bx9JueIA9IQq+Vd1RNB9it2ItDPk6CdWyXA6j dj1SFXtTNoMvE4NyidI5EOZ4BQUtUo4ELBNyTORcaHE1WkGtMJSHUzOjY5QxeF17DVYYSw4+DQplbmRv UcdDWcZ3ZFOjy0LhRNv9LU7DDLRqAHw9yRYjUZncP6 qarsvrYDG1hB8cmyrdKjsmTYG5hvDfDWVMw95ub24mEQ9CMWH3VPljNJveBaWgLLNwKHkoTYIREMiMZn CoM8Xve7YuUlH1MNDdKpJnTJerIWQmPtT3UH59eDtuBT6JXJXsTSZmKD02FAQ2YOCvIp6VAg4AItPrHB 9cez4KVHznTVJzDpcDAkh3RKokZM4HpRJqV4HyaRKc y5tWWfOmT5VMVDI5QLFlZs5GIJOfMpIuQYCaTHecNT9gGQNvIVSWrQchgiG5NN9IHX0dlxXrKF2GHdIt Ph8nLn9HEcYxK5EkS6TmUVCvDMAUHAauMB2GYEjjBW5wKW4Yu9OWlDVfzT7cag3NWLGzRMTnUxssae1M JrczT4G4rDtiNPKeHEHxESCGNKxlOD0LIBOsJZS1YN R2DJZdCFZNTwXnD24uBJ5SQ6Ccx10yCzJ3ZUYdKjAvEYuqRQ86mHscjcLjuSFddFefEE9CPs0+DQplbm HbPgzDIjtlXGCXKpEoGWjRWdYuUQYeHTGfRBRvPwS9WrSfXd5MTCYjHTVqVIZfIeTaXMZyLRDyFWwgKZ NdICQyXNF0ZVLfJXCoNX8FBhNeTNBwFJM5PBokYEWj XOCurv9ZIXCfYUUoPUW0IdDlXMPwMZZzEFolKULcBYJyFDD4XVKaTIZmYE5RMyFmOKCyMOPtBOoaHNZk LVRixy0WXFLoCPKpNaj9XKEwOALpBBRtKTboFZAvNXN0VYEwWMNeLATyXJ6ZObRoFRXsJPvaLRMlYMJs QWGlrf8RWRZuQWMnHWErFqEyKKAhPQIjYOljUEVtQK XxGSMnSSMbOCKmDX0GVgCjHYPaRHT1MolrEIClLSOfmw7VODUsUTCbBKC0SnTjFZAkTXMuSBooWLVoLL T1Xud0GXSnXWUmYT3NNvPxDVTcJKZ9QfKjFRPkWSZtdk4FRSJyWKUhRDN7CeDfRNTnJDVkBMtnXAUyBP Z2LXY5VRExLZOfOL1RQrXiZIOcKGVgYcqgWZAsXRAo sw9SMKUgTVThXwSsGXNlHJEkIRAlMYgyXUJqIPV6Ojd3FTEhGCRiPC6PRoInSWZiZHh0RXSgOMQnXZOq qg2LSQMtFBQoEyr0ZTTmPDRhOJRwNLvdFYEsZELbAYS6GSFqPPOrHS0VGnWeYQEgHtF7NwNnLEKfBCYg lv5IVCPcOCDzTQEnPVQyBENrQHCkWBwaMJHyPTVhBA r7GURyNPRrHY9ZGiGkMTJyZaVdLbBdRJSiPSFeaz5NTAMdKDFnPWu8HGEcPCMlUAKyMXvkJYYnKJHhPQ I1IGGzHJCyWJ8OYiWiZCAtHtOcUmvhIZAnEBVcke3QWOYwYDZdKcW7WFWpBJGaOEDuPCknWMEeYWZsFB O1EBSmLSJpDH4NLaAfUTExVaQ4OwnwLQFzFGMwiq4R LRIxQNMyDDP1PTCeSMYbLBPhNGhfRTLnSBK5VlN9CNCoLOScQV0LEaOnGVYcQgA2XwovZIFtKJAtrr4B HCDcFNFjJSt4LbWrNGUuAFTtYCseWFUcGDPaVNWyQESaGXUuFA0LYsFtRKZrIPEgGyYdPPDkZQWxgo2P BGHpBIU1PMZ8SqFtKRQfFPSzISugISZxPEXmDrGtMZ OzMFAzFF7CTsOnPPSlXPK9EQJlRWRwDGIbba1XDZItGPJ4NPt6YASiZTOwOJQvRDsjIBKjFMTyCAI1PQ AhVIRgQB3VTbVsYFRvXCM5FUcvPFCgUDDeix9UOJReVYH5Dny9PDEtATXdUJHjKAomEROgMQY9EDU4EI QuPQYiEE4VIvMuBEJjRQXlHWFzJIKtALNtej5SsIRf hOobzi7JOSmQVd7OfEdwIYE0SVcgPv4exJR8WMSmGJWRSy0CtuZlTHGfLPAHWBxyLUNrNBi5ICPyJEWr TqYzAiAgWqGwQ3QlNjg3XLGlSGEaYGtjAbX8JuenYSVfJFHlQJIlNSNlUwJ3IoTcYcE8TOTnFXQrUHI+ WG1vQWh+Ez4Rk9LhbwL8weVgBAl4DLR5RC7NUPOMV9UZYg== ID Date Data Source [id number] 03/27/2021 08:58:00 PM EDT [facility] Name Value Range Interpretation Code Description Data Arabella rce(s) Supporting Document(s) Nursing Note [facility] FOUFBf2wDoFRNyDt40/ETIodBWFdw9QtBWexTRp0WRkxKXGyP4GhLHX4fC8iHYH1FKeKLhKhHoOtCID5 lbm [file] OjkjHWgqDTZOSz1X ID Date Data Source [id number] 03/27/2021 08:57:40 PM EDT [facility] Name Value Range Interpretation Code Description Data Arabella rce(s) Supporting Document(s) Care Plan [facility] FLEAGh5tJdIQFoOp07/LYWsoNZZxy4IpIDfeQOo3VTzrHSMrP9FwFMP2vL3iGSE6TXeWXyRnZrQoMDE6 lbm [file] ZaYB5GPv7GHaQ9KVQ2xBVtAy0VZpVaCCXTAcSwOX0KIZl= ID Date Data Source [id number] 03/27/2021 11:56:07 AM EDT [facility] Name Value Range Interpretation Code Description Data Arabella rce(s) Supporting Document(s) Nursing Note [facility] CQJHGk8nRlYIVtYd59/QBEvqATOrl8LeWRvkBZj0PSscZDCqY9PyQZP0gN1eLVZ1QTuIHtOrJlOnCXH4 lbm [file] 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/VbYra/09LyUB4rwgr0kzEMImBVL2WTbOtd1d3uHurzc/BvRC0+t7zp61sl7sAk4wn8vN/DPMscSF [file] 9GDQo= ID Date Data Source [id number] 03/27/2021 10:35:44 AM EDT [facility] Name Value Range Interpretation Code Description Data Arabella rce(s) Supporting Document(s) Perioperative Nursing Note [facility] ZBMJXz8hNcZGQvZb33/JCLbnHEXlm1SpLThdAHh3RIaxFRZtL3KkUTO8eY0iEFY1TGvNSwRkUjXxDTS6 lbm NpCewEQfKuQTLvMotJJrPqEJcqAxazzZPqNJ7MoGT0PKEsX21lPNHtWYUbV7LgFQb1AM2+YSyeQEC6kn PxeM8GISUYQ6se3nPPlL+wf+WpIwFKUQa3ZBWYrneBRYPlil/UCYQfj8pIiVQJSoxAI0ef1FJArNyzJc yw4xCS53tQPxfA9t2ovICFMLIk//AoFIPpEt6+gcrN Mkp13kTlDslVdWKCBssEy10BbQIjQXE1qPUY2TqeqDoYFPGcOI0ztMIXkvc4MINfV5RuKQPYJECyTsj2 QDjTeSFKEuunlKM+WsFJ384tSFeszAwmJd6jTsk0ZG7cxTRgPWg2RJizaenE2ro4ffwLgO9xH44cb6Vl RQvIt2+Mvm/lNg7Gd1RJhgKzBs+cY+fZtxQXD9Doxv FR2r0agoj9lHHdTWgOxPQ6ZndpeDWhLuFDNAJRH8YG62ev7NKb6y1pSugJMx+CfLYQy2jsE3paOG6DjP oSbXh4BPpsnj6qkoAcHS1fUZY8XT/qztoTP2CjrLUY9u4mZHMfFl4l3Xcf0V67g660PTaekRXLnfNxmo UqJw7mAQnrjjX/wuM8JIbZtqRAQKqGGFZa7hyq7NFr REYES+lDQ4eMOb0f5wB4sxSbX2A7Rv3T4wEronT5u6P9P8vdx8XaFY/S2hAK6blnvJCxfYws02PMIB+Lt3E [file] SXKcNqDaU4WMzkXDPEZt2I ID Date Data Source [id number] 03/27/2021 10:29:41 AM EDT [facility] Name Value Range Interpretation Code Description Data Arabella rce(s) Supporting Document(s) Perioperative Nursing Note [facility] TFCBZf9uKpMXSuFz46/DJHxwIONsb2FxHXopEQx2OIutKXPsH0NjZUX0aN2cTHW9MTaYXkGxStJaHJA4 lbm [file] GwExLY9JRYk= ID Date Data Source [id number] 03/27/2021 10:29:01 AM EDT [facility] Name Value Range Interpretation Code Description Data Arabella rce(s) Supporting Document(s) Anesthesia Postprocedure Evaluation [facility] YKSSLp3iXzSDQgMj29/KPHdkAKHhx7CdWMygQGp3KLvtJIDhN1VkUSA7eT3xOVT5SZqRPrMjNtVcSHP7 lbm [file] [employer]+tUH2hzSk9HHaqTg7Kri0nRan7k0tN/JkA9tus1hsC9F3hMi8SAc5vQQ2D89xXM/UBdlj6AfeXY+NE f4dNeFSua2VIPBEt6br5QDFbgvl/9nnYiJdpTNK34p tFATnqnxmrBK67DtLuaahmJrhHCc1g9Dz98sBE6oeVBj+/0yzY7Jjc2UjR2KXgY3dZa2kUHTLrzc3q8e Ueg2nAR6iBJojsj44MHnA8BwxRe3Nw1yfG61rDG9so8lv9FtykGxmT4euCTvZiSOALP/Ssi5sRSYrS9Z R1mTl847zTM8wOVW4UexrVGaK5yDhzyeKmXw6xQCWH 0rP0wNkiEyZzWupBV81D8iHGvIg/3nX2nUiM0yWpj2leUZyHBmg+QWjGPWw6/JZDjfv7tnFlL+5Mx96G L49iJAOiMdJ35q6oBpmnxePfM3CfSAW8DeFnTbqXOJwdRqstuQWmedCxisqYKH7ht45J5re69yV7L7Xr BBJ4Vns1fKI+d63IUk9iJgNlJ2KdlnuJvnsiOZnL7x kCDYnuzFnlQiqN5vJkW6ibdI0I64G57FX0fb7n3fIZ7oq0dr4XYSLsI6B3EH0xNqZRPHdh5e33TbY8AY 7wHm2ociE1pMgd+9rEz236MtYxRA/SHwxFM0+RtjQtqGs2vwjNp0pFXXCt7J2jGUepFH15rdIpKlNRl2 9tyufrTEEfIckA7OBK48Lw/vlad/sIbAJRsMB6akeoD [file] Rg0K ID Date Data Source [id number] 03/27/2021 10:28:51 AM EDT [facility] Name Value Range Interpretation Code Description Data Arabella rce(s) Supporting Document(s) Procedures [facility] HQBGWp3mAkQAItBj50/YXFtfRHCpn9ZtOMlfZMy9VGgoYHPhY0VwQXH0tN5pJAP8HKvPSjMaLkFzMKQ0 lbm [file] IgFOY4SFSrLOA0POYpEDEjPbChYS7YKx2THkA4LJZ5dDVzUy0XDbGhVyOOCkKoSQ0CCGp= ID Date Data Source [id number] 03/28/2021 09:48:[address] [facility] [address] [place] [address] PATHOLOGY CLIA# [id number] Surgical Pathology ReportPATIENT: SIENNA FOSTER CASE NUMBER:[id number] #: [id number] Date Collected:03/27/2021ccount #: [id number] Date Received:03/27/2021OB: 1980 Age: 40 y.o. Date [...] cm. They are totally submittedin one cassette. BISHNU/edwardo Electronically SignedBy:ICD: R89.7x2 Wai Castañeda, MDCPT: [id number] PathologistI ATTEST THAT THE ABOVE DIAGNOSIS IS BASED UPON MY PERSONAL MICROSCOPIC EXAMINATION OF THE SLIDES (AND/OR OTHER MATERIAL), AND THAT I HAVE REVIEWED AND APPROVED THIS REPORT.PERFORMED AT: [place], [place] [address]THE TECHNICAL COMPONENT WAS PERFORMED AT [facility], [address] [place] [address].PRIVATE EYE: WAI CASTAÑEDA M.D. 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 [file] ICAgICAgICAgICAgICAgICAgICAgICAgICAgICAgICAgICAgICAgICAgICAgICAgICAgICAgICAgICAg ICAgICAgICAgICAgICAgICAgICAgICAgICAgICAgICAgICAgDQogICAgICAgICAgICAgICAgICAgICAg ICAgICAgICAgICAgICAgICAgICAgICAgICAgICAgIC AgICAgICAgICAgICAgICAgICAgICAgICAgICAgICAgICAgICAgICAgICAgICAgDQogICAgICAgICAgIC AgICAgICAgICAgICAgICAgICAgICAgICAgICAgICAgICAgICAgICAgICAgICAgICAgICAgICAgICAgIC AgICAgICAgICAgICAgICAgICAgICAgICAgICAgDQog ICAgICAgICAgICAgICAgICAgICAgICAgICAgICAgICAgICAgICAgICAgICAgICAgICAgICAgICAgICAg ICAgICAgICAgICAgICAgICAgICAgICAgICAgICAgICAgICAgICAgDQogICAgICAgICAgICAgICAgICAg ICAgICAgICAgICAgICAgICAgICAgICAgICAgICAgIC AgICAgICAgICAgICAgICAgICAgICAgICAgICAgICAgICAgICAgICAgICAgICAgICAgDQogICAgICAgIC AgICAgICAgICAgICAgICAgICAgICAgICAgICAgICAgICAgICAgICAgICAgICAgICAgICAgICAgICAgIC AgICAgICAgICAgICAgICAgICAgICAgICAgICAgICAg DQogICAgICAgICAgICAgICAgICAgICAgICAgICAgICAgICAgICAgICAgICAgICAgICAgICAgICAgICAg ICAgICAgICAgICAgICAgICAgICAgICAgICAgICAgICAgICAgICAgICAgDQogICAgICAgICAgICAgICAg ICAgICAgICAgICAgICAgICAgICAgICAgICAgICAgIC AgICAgICAgICAgICAgICAgICAgICAgICAgICAgICAgICAgICAgICAgICAgICAgICAgICAgDQogICAgIC AgICAgICAgICAgICAgICAgICAgICAgICAgICAgICAgICAgICAgICAgICAgICAgICAgICAgICAgICAgIC AgICAgICAgICAgICAgICAgICAgICAgICAgICAgICAg ICAgDQogICAgICAgICAgICAgICAgICAgICAgICAgICAgICAgICAgICAgICAgICAgICAgICAgICAgICAg PVHjBLPcEAErMLCtRYGwBKInUNEpCVUwYKKkCXQzYELgORDvSGOxFMTcGAYqBJs9H7vxSTJoOPVtGN2m ZYe3Sd4+GVoVYcRfYGU7bxByxI1ILR9zj7WgHCcjAT Fag5SxWQi4HS4WJAZfGGbgKT0BUOronr3JNCDuTZCjfKMIs9wxLnFyUUQ4SKXgIbwsYO6EVDOfN5wxor GzTQMiLVQJPJksTIAVGD9PFtUsJ5NlwV45ZZJQEt8+JIgcrlPaNpdMTtA3QHAhw4XgCDh2KS7QBWUmOn bcj3AcFyryDMTOMOpjWX5RKDO9AYP3VRZtCs9NEZJe H613vuIeHI3NPu4JMgCeQM9bnh5IMadgCPZoQezYYxf1VOotPV9UyOItSIjOzhEtjVjwl5eaSOXoRBJw p0CrPRTxPFBZosEtuZQ7sZ2mIMN1YOSiSYMoPBToZzBwMD1dixgwICTwXWGmVG1xBF1rZQYlAAF6GtOv WAPQVG8OODXlSFPxtYWnEKRcSZUBXK1JUBedCIO4Ds jtreApwTIfZPraOT7MDGUdshCtVcsyCPHNISf+Ej7IMF5no7CnUNmtJHStXX0oyi9SRMcKIzLuY4T7yB ZiI3B8VHjmZh4FBYFoTTMdDoFrKUWRYDntFD9XLO0xdeB6VK0QgMSwKKSnLVDloSXfSUs3A67gqRWlIB glOX1TEBE+Mau+Pl2CEJAaWAEaTVKmDeAhCKGDYvQa X6NgQ8PPk8HtZ3VpBO45oDsuhfHzFHelVC7LSP2tUTBcDKIJLA1EsGLhiG0hfbHfEdPeEFOPFnJuT31n xLBiRCTzZJD4FOXhEj5DVATlC0UwioPwgZpwymCpWSEdWFCREF7VBEviarDtdQEkeHvvYL37nPppFD3B Ht4FLqXwVF1nvp0MoDMyZj1GXZSmAV5LIPSoBJQyGD EsBFY2QMEbPlFmHWufCDIoUHWlTHC8NHFfVRImKS6HRnJsBAMbIlG8TaxxFAQtUCAdrk7GCLSdRYUhIb W5KXMgCJFwQICiJFugNRTqCXHlEAH7YJNrDKQsNG6WApOaEQQwJVXxIVrfJIZlRSCisx3IRMJxOJQoAe WlUsAnWCYtPVCeEOkjRFKjGUDvOHJ8IIMjPNElDB4M NtEtOURsCLYuJAGhTVKhCTAguc4POWGwQORzITEdNERgJCCgKPBoECiyHEZqCTV5CuL0LDVgFSZfYU4A UbLhKKPoUXG8GRDePJIsREIgkm7WTMIwRTTkZPW8OBLmAJKlDYXzLSwzJJJvPHS0KlLtKSLiRQSfQJ2C EsGbASFsMDH0BhAbOCPgKXSjrb1ZDIWdGVLaBMQ4DV HiMIYyQTOqLPblWGHoARF1SNTyUEStIKQoUA4BZlQaWXYpAYw9ZLtlWRSyCIKusl1NYIKqMDIqADc3VC GkZGFzWRRvVLrtLJUqTDJ2ZFl0TJVzKSGrOB0KEmNzHHMqTnCbHwymTTOqGUWjzn1DDNHsZZLnUNEhIu IrIWYxSTYqEVfjGITuRTCjTyz3QIYsTEBvSS5WMgKb KCPnOvMeUsinJSCnVWQdxh1VCXFwNIJcAHRvYJOaPSGvLLDlXAtxPSKpULPkQpB7VNQwHZEgSP9IUiPu XLKlCeSyWTRiGLGnFEPgjq2KWWUiFQCsDvE9NXKyJXViTHOtDDkhIQHhKXHgRbC9NXGkMEVrMD3VBpFk ZLAcGgY8TdZpFTWzSPNchx8XjFJbiHxwqe1TSPuLXo 1SyJkqIUSxVFaeSh9nzARiNVEaZQFNDf8YctBrBNTlOQZCFOnmOVVzDPH1TAI4XKW5MCGoKSToPBbsUJ zzMQh0NQFyBMMoNLTmUtK7OFGaVTyuVzO4LvE7WUZ7JCB0NVKnCKieDPLhK1U7TeH+XZ7hSJb+Pg0Kc3 ZeprJ1wxVmGFavQOR9BX7ZRTJJY0UHUo== ID Date Data Source [id number] 03/27/2021 01:32:01 AM EDT [facility] Name Value Range Interpretation Code Description Data Arabella rce(s) Supporting Document(s) Nursing Note [facility] ERMXWy2rYlRCLaMz16/KMSalQERcu5OaZAzlKNn9FAemHHUsX1JoEHL3yX2xEEB8QNpUNwPkTnLlRTI1 lbm [file] X9IHZqJHT1FhE7NPB7UJbvLtLuIG4RSk9BTjL4BNL9aIEoLy2WMmcqUR3HBYCGT8QIHy== ID Date Data Source [id number] 03/27/2021 01:30:51 AM EDT [facility] Name Value Range Interpretation Code Description Data Arabella rce(s) Supporting Document(s) Care Plan [facility] USFBVo8lDxWLZbNx95/QMQxgFVTjr3AkLFkgOUa7LBpqCRYuZ2VoPDO0nB3oWBP0LOpUJiXwXxZiFOF2 lbm [file] LtUrxvNAAkKXP9MYx3LYbpBeotW8AyBRa+QN0qDMn+Th1Zn1YcmxT6sxNwKSe3SXe8FLctITEOYd1M ID Date Data Source [id number] 03/26/2021 06:10:50 PM EDT [facility] Name Value Range Interpretation Code Description Data Arabella rce(s) Supporting Document(s) Nursing Note [facility] SNQZMb2gShNCWxCt14/CLWdyRTMae8TaPMnyRUv2QVdrIXRfQ4UxDKO2uT6hWWS8UBvJFwVaLjZhJMM7 lbm [file] hoHATRWc0T ID Date Data Source [id number] 03/26/2021 06:01:18 PM EDT [facility] Name Value Range Interpretation Code Description Data Arabella rce(s) Supporting Document(s) Progress Notes [facility] DEMHPx0tGeRGOqJy42/BCRdqPKDav9UdXZsoMSk8RXkyXKZsR0SqSYK8zL3eRDZ6CLjNOcFgRrZhNIY6 lbm [file] W5TXL1ECasZYXJIw1E ID Date Data Source [id number] 03/31/2021 04:38:00 PM EDT [facility] Name Value Range Interpretation Code Description Data Arabella rce(s) Supporting Document(s) Calprotectin, F <16 mcg/g <=50.0 (Normal) Normal (applies to non-numeric results) [facility] Test Performed by:[facility] [place], [place] [address]Rko Director: Rashawn Vides M.D. Ph.D.; CLIA# [id number] above 1 analytes were performed by [place] [facility] [employer] ([id number]) ID Date Data Source [id number] 03/27/2021 11:30:00 AM EDT [facility] Name Value Range Interpretation Code Description Data Arabella rce(s) Supporting Document(s) Campylobacter Not Detected Not Detected Normal (applies to non-nume ny results) [facility] Norovirus Not Detected Not Detected Normal (applies to non-numeric r esults) [facility] Rotavirus Not Detected Not Detected Normal (applies to non-numeric r esults) [facility] Salmonella Not Detected Not Detected Normal (applies to non-numeric r esults) [facility] Shiga Toxin 1 Not Detected Not Detected Normal (applies to non-nume ny results) [facility] Shiga Toxin 2 Not Detected Not Detected Normal (applies to non-nume ny results) [facility] Shigella Not Detected Not Detected Normal (applies to non-numeric r esults) [facility] Vibrio Not Detected Not Detected Normal (applies to non-numeric r esults) [facility] Y. enterocolitica Not Detected Not Detected Normal (applie s to non-numeric results) [facility] Enteric Pathogen Panel:Testing performed by reverse hadoop software engineer, PCR and array hybridization.A negative test result does not rule out the presence of diseaseThe above 9 analytes were performed by [facility] [id number], ,[place] [address] ID Date Data Source [id number] 03/26/2021 02:23:09 PM EDT [facility] Name Value Range Interpretation Code Description Data Arabella rce(s) Supporting Document(s) Progress Notes [facility] TYJIEc4xKmSKOnZn67/GHOayDEYmv2UdNGznZKw5XOwvCIYjQ3RkLAH6tL4mGAM1DCmDKmVvJfJjGQM1 lbm [file] VqOiJoQ1XYgqTJY0CBCbECRdDqi+MF3yXTr+Gm2Ha1RflzC1zhLzUVqgYoF1Oc6JDHPSW5DSSv== ID Date Data Source [id number] 03/26/2021 12:38:41 PM EDT [facility] Name Value Range Interpretation Code Description Data Arabella rce(s) Supporting Document(s) Care Plan [facility] BBTJDi6sFiXVRxMl51/EGMzzGBMfw9BlGItwURp4ELczOSOoJ5YxVMB3tZ8mZFH3DDhXPqTsYkYrNAA7 lbm [file] josé miguel/VnCugzHbVNoTqN+oyCRpZVrbThj6dhPr7InDyhZrdxJT19HK2D4iF2NcGDdJ2BN7FJSbWw1eV4/5 [file] oval or circular glass cutter+sTntlGrFluT62G5k9Xj3XJ/U10pTVfFH0PEgM6Vj4Ih654RRrjp5rzlva/0L/So8SWFsr5acKk/l [file] AgICAgICAgICAgICAgICAgICAgICAgICAgICAgICAgICAgICAgICAgICAgICAgICAgICAgICAgICAgIC AgICAgICAgICAgICAgICAgICAgICAgICAgDQogICAg ICAgICAgICAgICAgICAgICAgICAgICAgICAgICAgICAgICAgICAgICAgICAgICAgICAgICAgICAgICAg ICAgICAgICAgICAgICAgICAgICAgICAgICAgICAgICAgICAgDQogICAgICAgICAgICAgICAgICAgICAg ICAgICAgICAgICAgICAgICAgICAgICAgICAgICAgIC AgICAgICAgICAgICAgICAgICAgICAgICAgICAgICAgICAgICAgICAgICAgICAgDQogICAgICAgICAgIC AgICAgICAgICAgICAgICAgICAgICAgICAgICAgICAgICAgICAgICAgICAgICAgICAgICAgICAgICAgIC AgICAgICAgICAgICAgICAgICAgICAgICAgICAgDQog ICAgICAgICAgICAgICAgICAgICAgICAgICAgICAgICAgICAgICAgICAgICAgICAgICAgICAgICAgICAg ICAgICAgICAgICAgICAgICAgICAgICAgICAgICAgICAgICAgICAgDQogICAgICAgICAgICAgICAgICAg ICAgICAgICAgICAgICAgICAgICAgICAgICAgICAgIC AgICAgICAgICAgICAgICAgICAgICAgICAgICAgICAgICAgICAgICAgICAgICAgICAgDQogICAgICAgIC AgICAgICAgICAgICAgICAgICAgICAgICAgICAgICAgICAgICAgICAgICAgICAgICAgICAgICAgICAgIC AgICAgICAgICAgICAgICAgICAgICAgICAgICAgICAg DQogICAgICAgICAgICAgICAgICAgICAgICAgICAgICAgICAgICAgICAgICAgICAgICAgICAgICAgICAg ICAgICAgICAgICAgICAgICAgICAgICAgICAgICAgICAgICAgICAgICAgDQogICAgICAgICAgICAgICAg ICAgICAgICAgICAgICAgICAgICAgICAgICAgICAgIC AgICAgICAgICAgICAgICAgICAgICAgICAgICAgICAgICAgICAgICAgICAgICAgICAgICAgDQogICAgIC AgICAgICAgICAgICAgICAgICAgICAgICAgICAgICAgICAgICAgICAgICAgICAgICAgICAgICAgICAgIC AgICAgICAgICAgICAgICAgICAgICAgICAgICAgICAg CXWhSPv5E7cmYFLvQVTnXC0cMPt3Rb5+PAlYOiZcPSJ1ucNceT4SYJ2at1XxVSkgOSEax8BzWDg2BJ8P HJNnDHbvNY7YYKggkt3OUZRxXJHswACCm4ueZhNeUGE9IGSwNllfOV6SKANpI5xnnzPaYZRvRDDETEwc EUHNTH9MZlDeX2RuwT61BATSMm7+DQplbmRvYmoNCj P3ZGJtk9QiTMw9QD3HCVEwLirig8VqRibaFTNDDWcfZI5WVTV2GLI2ACLtUv6GKYEnS349wlXbVJ1EEv 6ENrXwIV1xpk8QWtakKQCxCgyIJrn7AHcyFQ1KfCXhAZyZJYRpVEAcJS4cJtdtZ0Bti1GgdqLgYQPFjv 6cTTIrMEJFZkQqgLC1AbE5AhAfVcNgEWR1MhsvMQ6g KQqiTZ7OAJS6ZZrsBNDjSTEfG5vQPvUaBScuKZKaySxrVV3LGmVxL9AfiyLrzGAjFpVvRLQYTy1+DQpl unOpNhbKYrS1DDUsv6XeSBv1BD1WTRPuLGscLA3KFSHbvY1yDCoqGD7GWxCgZOBdMBOTXrNnU64dfUBa RQr7O7EiTrXaYQEaFbulBWDnVNlyIbYzDCUwVaDoBG ogID4+ID4+SJfwUV7BJGkmccFdYHOsAq5KUPWdITYeDI3zGIUpOKInR5I6kHsdCVIEHcZfA5etlfmcOG 0fMQKjN596dHofsySlCYB6FDAgBv3ESRSoMAH0MZPurZRyKkHiLZLOBIupRY4RrPJgTEI6nP3qYAbxOF IyIFCkW0mMLqFtxBvxWO46rFwkwfCkvCYeWCl+Pg0K WY0ul5FxUTz0kjUzTAgoISNdKOnzCFCcHSZnKHOaXST8XIV6VJRXQjPeCNJgYOApQZlfKDHcRSYsmw2V KVIeQQFvTXGxKhJuHXTiNOBbULetEDGpWZQiTTg2CKMtJHLkAN8QEuBmRVKuHNEsIAhuQNNlDIOmif4M MDAwMDAwMzMyOSAwMDAwMCBuDQowMDAwMDAzNTMzID RoQASgGY1JJoWgFRUlSHG7ElxjESEiMMLqng6ZEHDsRNYrNYE2YYDtHEAzBKSdYWjhLIEiYVO9KzN0EQ FnSKDiVS2JVjEtFUZqASF8VHWuERNhOSGesb5UGPYnESHdIwJwNeMxKMAkATOvERvmSGQdBUV4LLe5SP JgKEIjXN1USvKbOUDtEHclDHBsUJHiIEOpul7LHRJq GASgQDN9LeWyLYBoAJNyMLrdILAvNZF9WmN1XTRkSVYhJH4MOnUoHDRmPHg4ZewyJVYxPVQbuv0TOTEh DTDiWQiiJmJtMQLnSPAzEPvgHJAxIJDiZoo5HOJmZFDgJL7EMyRzFJJgLEI7DKRzXCZfETTqop1DMLGx JTSqTTF8KMQyJUJfPLYcTUshOKAhKEG3UMS7IABdNW MqZH0TXpKyXNReNoBtLGkxFMFyKCBaxm6FSBFyXDTyXDR3DmDuUATsDZTuNBufTAOyMTRaJTDrEFEuUN MzGL9OHuUzIIZhQfSwSCPfZYIvBVUzio9CXVVfIHZhGHxyFNHaGQYaYBPqFZilCZNkXVSlUEt8LLNjPC YiDA4DPdDzQGWjVpFuGTitSPOlLDAygk2BZCZnBQBr KoU0FqDyBPGzSRAmZAx5pgKlsUSgNSi5UM8IF2DapbVeBoYLVc4Dp536QKZ1UFVlAt6OB3sdOv6bRYFk IJOKIa5WHRk7ElCzQCV2WbR6XGkoNyO2WrUcOGl1XVAgH3ZyPGKwNuh+RMbxH5V5Lsn6KODuQFLyHivt PrZaEtZiPWSoIPXuSINmZI4jDLKDSk7+ERidhLYqyTkgPARROwStJyYeXTylWRDQUv0X ID Date Data Source [id number] 03/26/2021 05:02:00 AM EDT [facility] Name Value Range Interpretation Code Description Data Arabella rce(s) Supporting Document(s) Blood Urea Nitrogen 5 mg/dl 7-18 Below low normal [facility] Creatinine 0.79 mg/dl 0.51-0.95 Normal (applies to non-numeric resul ts) [facility] N-Acetylcysteine (NAC) and Metamizole em ve the potential to falselydepress Creatinine results. Baseline values before medication adminstration are recommended. Patients undergoing treatment with phenindione will have falselydepressed results. Patients on phenindione therapy should be tested with an alternativeCREA method.Toxic levels of acetaminophen may lead to falsely depressed results forpatient samples. Glomerular Filtration Rate 81.00 mL/min/1.73m2 [facility] GFR Reference Ranges:Normal Function or Mild [...] of Health and the National KidneyFoundation. The Norden method used in calculating this result is traceable to IDMS standards. Glucose 82 mg/dl 70-110 Normal (applies to non-numeric resul ts) [facility] Sulfasalazine has the potential to false ly depress Glucose results. Sulfapyridine has the potential to falsely elevate Glucose results. Baseline values before medication administration are recommended. Calcium 8.0 mg/dl 8.5-10.1 Below low normal [facility] Sodium 140 mEq/L 136-145 Normal (applies to non-numeric resul ts) [facility] Potassium 3.6 mEq/L 3.5-5.1 Normal (applies to non-numeric resul ts) [facility] Chloride 110.0 mEq/L 98.0-107.0 Above high normal [facility] Anion Gap 6.7 [facility] Carbon Dioxide 26.9 mMol/L 21.0-32.0 Normal (applies to non-numeric results) [facility] The above 10 analytes were performed by [facility] [id number] [place], [place] [address], ,[place] [address] ID Date Data Source [id number] 03/26/2021 05:02:00 AM EDT [facility] Name Value Range Interpretation Code Description Data Arabella rce(s) Supporting Document(s) Magnesium 1.8 mg/dl 1.6-2.6 Normal (applies to non-numeric resul ts) [facility] The above 1 analytes were performed [facility] [id number], ,[place] [address] ID Date Data Source [id number] 03/26/2021 04:45:00 AM EDT [facility] Name Value Range Interpretation Code Description Data Arabella rce(s) Supporting Document(s) WBC 4.62 x1000/ul 4.80-10.00 Below low normal Health system RBC 3.66 x1Mil/ul 4.20-5.40 Below low normal [facility] Hemoglobin 9.4 g/dl 12.0-16.0 Below low normal [facility] Hematocrit 30.0 % 37.0-47.0 Below low normal [facility] MCV 82.0 fL 81.0-99.0 Normal (applies to non-numeric resul ts) [facility] MCH 25.7 pg 27.0-31.0 Below low normal [facility] MCHC 31.3 g/dl 32.2-37.0 Below low normal [facility] RDW 15.9 % 11.5-14.5 Above high normal [facility] Platelet Count 232 x1000/ul 130-400 Normal (applies to non-numeric results) [facility] MPV 10.8 fL 9.4-12.4 Normal (applies to non-numeric resul ts) [facility] Nucleated RBCs 0.00 % 0.00-0.20 Normal (applies to non-numeric r esults) [facility] Abs. Nucleated RBCs 0.00 x1000/ul 0.00-0.02 Normal (appl ies to non-numeric results) [facility] The above 12 analytes were performed by [facility] [id number], ,[place] [address] ID Date Data Source [id number] 03/26/2021 12:22:38 AM EDT [facility] Name Value Range Interpretation Code Description Data Arabella rce(s) Supporting Document(s) Nursing Note [facility] IVZCIj0gAwHNUgDp16/THFgyFTZsr7YkOJovPYy0ZNxiWTSrL9OhAGC0zN8yNNB8EMfOUbOaSiCmCTD8 lbm [file] IiIlJdGV3ESz2YKaP9IGG0lBYuOv0QSacqIK4SZVONY5KHKb== ID Date Data Source [id number] 03/26/2021 12:17:58 AM EDT [facility] Name Value Range Interpretation Code Description Data Arabella rce(s) Supporting Document(s) Care Plan [facility] PTZJMz2xCaWMMoZr87/WXNdmAHShi7NzXXvkTZf0ZVheBDOiP3BoXEV3bJ0hTDH0UKkVErHrNpDhRRP9 lbm NiTiuGFwQwLNFrGcpGZkEyPTelBlfjfIUyWU7TwXA9ZRDdI84nNGLlGFPvV1LoIEN2XDz+Nx6ZJTMbgN HtMD7BFuiE7DjHn4v3UQ57ls0ScnLvuX4TALN18bG9zl7gSi+is2vaaTUA73WFBaKBnj4eXYD6g9iYSf e8zC3AKvM+W5W810HQFhg1tBfNNlEji/J//VWnkvUm 2Tsi7KCBRLeEEj/QUKCJffD1x1N/YkX0EdelbLWBOknbKoqxN1ddAerHbs0bKbOWRoj6VcjFEM9eVn4z bO585MKLH2kp4E2c60NguyHTTxguJbdw//c/50M4c4jSkQJcv1ydOkUnvskxgApqiWXdhdpwbfxrL0xl iqa4qvyez6gIL+rtpy04Sp/ivo7C6Y/w9FLASmLCgd 5kcBNPP4yYtoLSy6q1UIvwWslbLE3xSLVE+3vSWQWdE9xo9KBXOMGcYVwBXy4obEvIElBmdphXZjPFqv ousoZ/Vs2Lu/5oDHn55xpFCiSedL8Wi2W/J+Jackson+nvXweKJ0TJwJGy5pQhQjb2oqjjXBkpv+Q+jMTtfFl gko4jFgr04WLwjkHdv80RKRGoYZZJ2MkKN5/Ztf9Q9 3YhDTZW4ceyYFfDkp6npEFEoGVqwstLQUyXvZAgDf/B4DTBBkq6O2CYY9LwGT3wiqRiEc2r/djbXx6Vz 3m/V+DWPN+WIrHXxoojmhm3DeehgZi25zfemjFM3hkucNw2Mr4sdy0ALiP/d5ZRQ+uXOr/K+Dr96zU2N 1wpj11j63JW/Wp6axgp6nxhyRXxtupWnSmdgyzn5PF [file] UzLVSyFZGlBpLfGqz8LzQ7ZXLdJXCoPgKdCK4SFh0YFiS4AHJ7rLMwFk9ACEm6Iy8UCHRWX7YORt== ID Date Data Source [id number] 03/25/2021 07:13:18 PM EDT [facility] Name Value Range Interpretation Code Description Data Arabella rce(s) Supporting Document(s) Care Plan [facility] PZQUEd3wInITNiNi10/EVFuyHDKyx5IoJReuKTo6DPwlCZUoQ3GqPYE8iV7oFZR5MDyVJiFkOgZpIFI5 lbm [file] 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/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/43LoPD8krhf3daKILiFJP7KAjIle9w7ySpwzr/BvRC0+j4eq89tt3fDt4le7mX/DPMscSF [file] XSANCj4+NAytkIWhzUxaISAGHwCuJGL1VOgyMGBMAp6G ID Date Data Source [id number] 03/25/2021 07:12:23 PM EDT [facility] Name Value Range Interpretation Code Description Data Arabella rce(s) Supporting Document(s) Nursing Note [facility] LKXBWv0gAbDRJyGp96/VRXyfFYEvh5FeSYocKAb4VPipXCGoS2AzWJP6iQ5eHZS2YZnOAfDjKsZwQOT9 lbm EkIyqIYkQyOXHdEkqKCaLuPPfoGweomJZnKD9KxRV5ALAbN99lZGMjLMRoD2BhASAiRvD+Kf4SKLVduA KlWI1SRxxN4BgpwlJ2ZK7M3p/JR4szwbo6tY+EkLiUSkgUSqPzcjgPKdmGQG+kCQV+/dmNvUm+wZo27R ZB+1LD0DzJa/vGuyEKf1+h0okaKFW/y6+uNPTxlB4+ qHA1pCb3ei3eTpAllHsdCRNbO/2rQq/AzJfUf5AS0by98AqvMDyHkZ8nKeaBUU50hp0e63f8Ac0O8QeW tq1nkvNNl+W1Hzu3pa26qRg0hkgdW/mFbaFQlL2SsjmfZvLncadmdS0K9KXqyz0ZjYVvyZWBWYRPWuOz RxaEn7vE1rwxSViNbm3W92mTIGzz+ljZL7HY+jZEGO qMDCTmwMx3WwKXq5Sdn+7eGWthKZACDDdId8UHu5j2XxR29bCOKJvAnTghnDETQDntCOzP0aCuL8efeL WU6U7Tk2fHkQlLuSdcw07EwtydZeZC52Dcqts9E3yT1FFXXtl50fdCrAMzJdfOVc92Iu/1R8EduGPz2m A8p3Rp8CNpQrQsy6i8n3+/vuXW+rI1REdAumGKBkVh jTU0qoYeo1hBlEoKBcn1r/DGoWxlaE5rjgUyE1ZLfRH/aPD6/nHnhai0Zdvf39IzxjIMAVkCbD10UScB DxHhl9gH6Y9f/qXvtT9FCdxQy6NkCU0m43w89bRXjCKNu4t5x39E02jea+gvkd+ExR9EqDzgx6JlJWdz f2G/CP0e68O578ClXJwnq0j5Vi1zKegVN1gxSl/Clau [file] ICAgICAgICAgICAgICAgICAgICAgICAgICAgICAgIC AgICAgICAgICAgICAgICAgICAgICAgICAgICAgICAgICAgICAgICAgICAgICAgICAgICAgICAgICAgIA 0KICAgICAgICAgICAgICAgICAgICAgICAgICAgICAgICAgICAgICAgICAgICAgICAgICAgICAgICAgIC AgICAgICAgICAgICAgICAgICAgICAgICAgICAgICAg NAWtVPVnMQXhOI1PLWCwJORhJEYcBCBwQKXhOYXtPDNrAWRfGETtEXFnVXTaZANyMYVdJBEtBABoVKSa OJRaBYRfJBFxOOMkGDNhOTWnWYEeKFQrYQHiPXGoGHPeBIXdNVVeDQApLXZqBCVjBANcJP2VJVQjYVYh ICAgICAgICAgICAgICAgICAgICAgICAgICAgICAgIC AgICAgICAgICAgICAgICAgICAgICAgICAgICAgICAgICAgICAgICAgICAgICAgICAgICAgICAgICAgIC XtFQ6VCKEuQNFqJDXyLLOeARJiDAWnNVFqCDObHYOhYXEbUBAsZKHiITKaQWLrKBTjLQZhIHWiEPPwEF AgICAgICAgICAgICAgICAgICAgICAgICAgICAgICAg QLEmUULdDAWpQERyRG8WWVLzISHfEHKsGIYuRUPwRNVbKUZaLQKsLYNsZJIgORLnQXRhQWUdAGIfQPSe BBHlQSPsSGXuGFFyMWTsRJHdBMUwTJVpEXGwDQCmFFFqZNZfMSCcNAImTSAjGHQlGRZpMXTtFK4PQDFc ICAgICAgICAgICAgICAgICAgICAgICAgICAgICAgIC AgICAgICAgICAgICAgICAgICAgICAgICAgICAgICAgICAgICAgICAgICAgICAgICAgICAgICAgICAgIC CdJLOaBY4SXEBvCGMeVAGbQMBcFTEeDWNsFTTtWDNkAOLpYPWfUPHpLZEuZPBnYYNeKAOzJPHyWHPzBL AgICAgICAgICAgICAgICAgICAgICAgICAgICAgICAg JHMtWJXaRPVjZAPgLMBcAR1AHFWyYBFwDMJdXTUiEAGyNFHbEWLiVSTtBJVfZSJjOUIxPLUgWGPbABTc BJEhIHOkQNPbCKIdJXDtRQThQUTcKBTnNGEkOHPsRYNhQHCyXJOjOPHdQPDsLULfDECtUYWoKCWzKH0L ICAgICAgICAgICAgICAgICAgICAgICAgICAgICAgIC AgICAgICAgICAgICAgICAgICAgICAgICAgICAgICAgICAgICAgICAgICAgICAgICAgICAgICAgICAgIC BpVNBdYOWcJL2EUL43jKCxz5E4UVKeDU1smgv/Wq7MVDoaxzOyqWRgDB9OZbMpTE5vpr1CRtSlFX1acj 6VTVmHLcKwA3O2hJZkDIFrWBIUGwAvW35vWLgqLh02 UChxQANfKhNaMUh3Gs4REiZcW5fyKAAmElQ1NUBfYdQfEIobAP4Lv2NloWOgZIs+Eb6FNS4mc5QkMVkt RaOeLH0jze2FKIyXRnNmN9QxkiV6QPLdXVIuPk0IIPSnXPScgXAiKjWbJPSNFpOnQ2FmhA54WYZSYa9+ APilgpAvMayGKeViGYKxd2CvCWn1TS0EUOAcPKl5kG JjXrPnh1tpXrFOi9ScTQK1UGDvON3kKWNHf6YwloizO80vHIFcYO5hLu0xOZEeONZaWvWkMUADBJ7JRC VjDREmkXEaHBUhBJOPNI4MGPggFCS1LnjusiEubIFaIVhxVJ7WWHRclxXrGmXjORJZNVw+Ov3DZJ6zy0 FlRRhsERPrUS1yxh1GPOjULcZrZ0N4yXHfZ9K9GFke Bl9YXLEoNXRaYfNmDOBKCNfgJH5NRW8mzbE8KF1LhQKkVCBtYDDmiHTzIQm5C20chVUxOUxkBK5RRZV+ Mau+Wo2IBRLvMAZdKITlXyLiWFXASkCtD3EmD7TLo5MtO0XoOG81nZazldNvSWqkWW9LVP3aAFHcMUPX SI9PlWAacR3ekgZxCsWwQFAVFzQnC88ojHRfVBQfIY GeFLKtMr3NDXRbQ0IayeMjrEremzLrEWFcJUBZUS5CMRuawjVcxPXlrOayMX28oKbuPT5OEa3YHbNrTD 7gfc5LxLThZl6GVJSaXM9JKHVcUTYeFUWaAQO6APSiLkBdVGqvTRChOBXtJCE5QAXbWNYzGZ1XJiHsAE FjSIb2YrZkPYAnKYXanj1FJFMcTQAxAHA1TCBsBADd RRKpLEweEHDiBTCgNRA0YJZrDZNxOV1ZDfLcBOKcYCLhVjLfKFXoMRWxpn3TMLGeXJEdZKV3AfDtTWTn DXZuJGbeRDMsGSSmCMW6ZWFjVCTgUQ3YHxBgWTRcLUH7KhDcFFFcJYGrhb9KGWBxWLMrVstcZUHdHWGh GQWrNNhhIOOrIVCyCOzhRBDhVEPhCH6TDdSzURNeWZ OoUfgzDREhTYJtgg0BNQQuEDLgNXO7KODpMRBpWZQtBRgdLDQtIUT2BEt8JBHaWNOoIA8KOzUvCNAhAF V3KYQpMOYpTBMuyn1RIRChNZZcWwTsYiYcYJYaNACbMLgaFQJgXPB9UrUrRBCcNGRcRA7FZzHqRETrGS e7LRryLECjGPZxpw1VBNShGZBrLVH9GONdCZZzVJIu DTdrPGVyUWN3VjA2FXCjSPBrFJ5GHdLlSENyCQd4CFheEFOzICWatl8RGNDwUJKhYELhXTOdILSkPJEl FHelWICnLUCbUaQnANOqXVGuCV0CJrHcQWWlHnP1CrZqCEPdPJFpzv7CTFAnJBWtIOa8PTGeGEAaIXMk OUa3kaCyaSWdMNr9YH4BJ4DwteWwDkKIPp6Gd056WE O5CLPmIw3FL0apJt7sFPDiAEYWZs9NYTe5BRX8HkkvJGOgUXM2WEGhMyjwQ7NeDLCvEkZfKWCaHxQ+ID hkDLSxBAMjVlD9UwKaYDV9YZXhZKIwYPDlEyUiZXA8WU3vFYAIVa0+DQpzdGFydHhyZWYNCjIxMTIzDQ bqXCXRFf4C ID Date Data Source [id number] 03/25/2021 05:38:02 PM EDT [facility] Name Value Range Interpretation Code Description Data Arabella rce(s) Supporting Document(s) Progress Notes [facility] RBTAPh8gWwNMHeXm12/SCOhcGHAdw1WfVCihNVw8ZFasBLNqN9NnUKZ7wO7tZJI0VEpPDrRiThDzOBY9 lbm [file] YRBpIcCI2XORa= ID Date Data Source [id number] 03/25/2021 03:02:31 PM EDT [facility] Name Value Range Interpretation Code Description Data Arabella rce(s) Supporting Document(s) Anesthesia Postprocedure Evaluation [facility] ODTHGx0xStFRJtYv87/ERYxtACYhp4GzYFztPOm8JKmxYWMpH1BuDYI1bH1wDBS3ECvMKnSqAkAqDNS1 lbm [file] MDAyMzQxMCAwMDAwMCBuDQowMDAwMDIzNTgxIDAwMD YfMG6ZLcTdHEtlAKWVTxt2HJzwU5a6MDAtTD1JE9Epi6IiMxwkFORDXCbxBV0bqfOdADXmPq9GT9sXAl xeT1WrFPU5RYksJFO1VSWgRFMoHJQ9XgL6WnYgRjKvQb6jAAFrE7T4EUy6ZPN2Dvg1TeCpIeWdCDOwRP w6JnKpY0RjVcYcAY5PNe6ZXcR4OVE7hMMlDc0JDrG3MdORHdWvRW5JLFd= ID Date Data Source [id number] 03/25/2021 10:57:36 AM EDT [facility] Name Value Range Interpretation Code Description Data Arabella rce(s) Supporting Document(s) Nursing Note [facility] GPBIEz7mLnKKVfLd25/ULNpsKGFqk8RwGZwsTBe7NXfaCYMaZ8TlQWI9eZ8xDXX3MUkCBlMzTjTsQDM9 lbm [file] XdLhdbAUKrWuVvJON5NBV+CA6kJCd+Dg2Yf5RfliL9dxQhEQjcSPzfIc6EAVOMZ9RFZc== ID Date Data Source [id number] 03/25/2021 10:48:41 AM EDT [facility] Name Value Range Interpretation Code Description Data Arabella rce(s) Supporting Document(s) Nursing Note [facility] LHGLYr3wWgSVLcIu07/DBZyzVUOfn7XcJXuzQQi4JFrtXQTuZ7LzFBL3oT6hMWO3JVbAWhUoNvDxVFZ8 lbm [file] 9PSaW9MJK8uENnWo9HCiL8UQPPOfTpWF4VCGc= ID Date Data Source [id number] 03/25/2021 10:42:08 AM EDT [facility] Name Value Range Interpretation Code Description Data Arabella rce(s) Supporting Document(s) [facility] VSCPVf3mCyGIEgJp24/FMJvpEJCed1IvBXtaGCu3FYvmOOPjC4LzOOU3yP9hBJN8FCzFIpHpNbQsYOG5 lbm [file] ErUbF6R1UjDOUgWmTnSN4PSh7EBdX9DCB4eCWqDj7FKlQ5UoNJAqPaBA2VGZa= ID Date Data Source [id number] 03/25/2021 10:11:38 AM EDT [facility] Name Value Range Interpretation Code Description Data Arabella rce(s) Supporting Document(s) Anesthesia Preprocedure Evaluation [facility] WDNAHe0iVnNNVkEr36/UWXswENRxn2EqPQxcMXc1FShiZTSiN6IfPKF1uV7bAFO4ROwGBuZmAoIgRAB3 lbm [file] QjgXjprWly3qtVGuMybhwm+D709ljI/c+yI0+ooN55ePzRaSBeeK1Los77f4EtjVJfNUuAra3gbh/Rocío Ikyt6cM/79QoQPD9v/MNzMuPO6MO0i7yP7/qPg+f5H 9cJZQdG8izWeMdwCVaCI7hI3ZKfU+vLHERkMBfRencsaAK9T+ajeES791BSdwDOsHpWCBsmim8sUbXUb hbW/rogelio+C61/P3henGvqpG8VDfUiRzTOrrzEaP1wwCTuSrQKZeHHnVfhrrLB4us5ESpKanj9wXVtG1pt [file] NfOU1UZm5QDrZ4XRN8yYOcRs2OVeVsLuaJSwIcVY7LCJz= ID Date Data Source [id number] 03/25/2021 09:23:31 AM EDT [facility] Name Value Range Interpretation Code Description Data Arabella rce(s) Supporting Document(s) Perioperative Nursing Note [facility] TYNHXe7nZnCPWrYl27/FBGawMXEui7HkXSrpYBr0EBjcOTFdH9KgSZM0wV8gKSA0BDfIZdElPfVxXWI4 lbm PyYkdKHiNuJGNsMmxUAbQqQVdoZuoohKPbBN3ImIT0VOOyI03zTECbUGHwH5QoPXteVF9+JXwpXLZ2md XpcX1SVBXPWDgw54WScPlfN+oLUp4ur6a2CjNqJvSWpIfrB6jEPdkrlJzN0qGt23M1bmpxMHuiqnAiR8 s0s+jXanw6SdG/A4iSSPsyDx0Em3mOjvoMumoUeEEm yzn0TirxYQHTuP7Wnag47AQmKajUCZ/0hUSFfOiYTtxVDHWPzzRK6ZpA+vCDMKY6OqLBJJ0qZqikpnMG 5NImF8M0ux38TO+dcGl57WEY9h/KprXRbrSBkvroyZ8IEwwyCgbVcCYwEVUHnwcjdnMSnGvCBuhozr2v 4rIL3J1ePmwewNHY3FIESoZmKq7bfIshmhJJkRa6e8 YRSjeu16I2z1AsQ9awlDpj3yRkRTeFuK4JQktI8sfgMKfx/dFUo+kAlByVymcrUMlQdLTcVyiUDJruQS zCy+Aw5xkRBN78HoF5AnLIEcPCb24Jg14Ur0idNEzZgXkvYxDYjvXjt1JB7im8+Z3LaCNlXUjeca+t6H CcrLZpNHzauEKpdcN7/lyzl52IxbKXy4l6gNdGcPNS jQacvSE9bIA8ztnGEy0g+scmeUqo3uDPi4+SX34cTFfY0oS80nysoNIqqpFNMtgBII2jJH0C82W1XA9d XHk8Uf3Ze467VpCwpinThbbTIE7s4nQI+q5Lsd16b8J+8A9YDGA71b/gYLzyDKR1F7wdNJ/Jpfpd/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 [file] 9GDQo= ID Date Data Source [id number] 03/25/2021 07:03:25 AM EDT [facility] Name Value Range Interpretation Code Description Data Arabella rce(s) Supporting Document(s) Nursing Note [facility] QOCGUi8tSqEQBxFz35/RFAisSGRgf9LuADodAQs0JKmvXHWkB7TkBKK9yT8fFDD0SVqUHxWmOgOqXZS1 lbm [file] 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 Baseline values before medication adminstration are recommended. Patients undergoing treatment with phenindione will have falselydepressed results. Patients on phenindione therapy should be tested with an alternativeCREA method.Toxic levels of acetaminophen may lead to falsely depressed results forpatient samples. Glomerular Filtration Rate >90.00 mL/min/1.73m2 [facility] GFR Reference Ranges:Normal Function or Mild [...] of Health and the National Kidney[employer]. The Norden method used in calculating this result is traceable to [employer]CA standards. Glucose 92 mg/dl 70-110 Normal (applies to non-numeric resul ts) [facility] Sulfasalazine has the potential to false ly depress Glucose results. Sulfapyridine has the potential to falsely elevate Glucose results. Baseline values before medication administration are recommended. Calcium 7.8 mg/dl 8.5-10.1 Below low normal [facility] Sodium 140 mEq/L 136-145 Normal (applies to non-numeric resul ts) [facility] Potassium 3.4 mEq/L 3.5-5.1 Below low normal [facility] Chloride 110.0 mEq/L 98.0-107.0 Above high normal [facility] Anion Gap 8.7 [facility] Carbon Dioxide 24.7 mMol/L 21.0-32.0 Normal (applies to non-numeric results) [facility] The above 10 analytes were performed by [id number], ,[place] [id number] ID Date Data Source [id number] 03/25/2021 04:56:00 AM EDT [facility] Name Value Range Interpretation Code Description Data Arabella rce(s) Supporting Document(s) WBC 4.87 x1000/ul 4.80-10.00 Normal (applies to non-numeric re sults) [facility] RBC 3.54 x1Mil/ul 4.20-5.40 Below low normal [facility] Hemoglobin 9.0 g/dl 12.0-16.0 Below low normal [facility] Hematocrit 30.0 % 37.0-47.0 Below low normal [facility] MCV 84.7 fL 81.0-99.0 Normal (applies to non-numeric resul ts) [facility] MCH 25.4 pg 27.0-31.0 Below low normal [facility] MCHC 30.0 g/dl 32.2-37.0 Below low normal [facility] RDW 15.9 % 11.5-14.5 Above high normal [facility] Platelet Count 201 x1000/ul 130-400 Normal (applies to non-numeric results) [facility] MPV 11.1 fL 9.4-12.4 Normal (applies to non-numeric resul ts) [facility] Neutrophils 50.5 % 40.0-74.0 Normal (applies to non-numeric resu lts) [facility] Lymphocytes 35.7 % 19.0-48.0 Normal (applies to non-numeric resu lts) [facility] Monocytes 10.7 % 3.4-9.0 Above high normal [facility] Eosinophils 2.1 % 0.0-7.0 Normal (applies to non-numeric resu lts) [facility] Basophils 0.8 % 0.0-2.0 Normal (applies to non-numeric resul ts) [facility] Immature Granulocytes 0.2 % 0.0-0.5 Normal (applies to non-nu meric results) [facility] Nucleated RBCs 0.00 % 0.00-0.20 Normal (applies to non-numeric r esults) [facility] Abs. Neutrophils 2.46 x1000/ul 1.92-8.31 Normal (applies to non-numeric results) [facility] Abs. Lymphocyte 1.74 x1000/ul 1.20-3.70 Normal (applies to non-n umeric results) [facility] Abs. Monocytes 0.52 x1000/ul 0.14-0.97 Normal (applies to non-nu meric results) [facility] Abs. Eosinophils 0.10 x1000/ul 0.00-0.76 Normal (applie s to non-numeric results) [facility] Abs. Basophils 0.04 x1000/ul 0.00-0.22 Normal (applies to non-n umeric results) [facility] Abs. Immature Gran. 0.01 x1000/ul 0.00-0.02 Normal (appl ies to non-numeric results) [facility] Abs. Nucleated RBCs 0.00 x1000/ul 0.00-0.02 Normal (appl ies to non-numeric results) [facility] The above 24 analytes were performed by [facility] [id number], ,[place] [address] ID Date Data Source [id number] 03/25/2021 03:48:12 AM EDT [facility] Name Value Range Interpretation Code Description Data Arabella rce(s) Supporting Document(s) Care Plan [facility] CCAFCf3iYlFVGsPs44/TGDvpNCNqp3VxLOepBKb9FFimETPyU9EaRHR3dG9bHIR6SXwMKxSeDiPxSKR4 [facility] [file] YoDNPnBVD4OCEnHUK5EkMrTmCxFANiSmJ3Jy0sSF ANCj4+BZignQLzvDloWVEBUkS1VnWfLArgQLWKRs5I ID Date Data Source [id number] 03/24/2021 06:47:36 PM EDT [facility] Name Value Range Interpretation Code Description Data Arabella rce(s) Supporting Document(s) Progress Notes [facility] BFBKEm1cMaEZDjYf37/YCAxiSZYfe0QtHUayUMs9XUucYBTiO5MfQKU8tW7zISK4GLeMFrGoMmLxXRC3 lbm [file] lV2FuaIgUVATt5cov+IOxXfu/MvxJC5ra34u/O [file] AgICAgICAgICAgICAgICAgICAgICAgICAgICAgICAgICAgICAgICAgICAgICAgICAgICAgICAgICAgIC AgICAgICAgDQogICAgICAgICAgICAgICAgICAgICAg ICAgICAgICAgICAgICAgICAgICAgICAgICAgICAgICAgICAgICAgICAgICAgICAgICAgICAgICAgICAg ICAgICAgICAgICAgICAgICAgDQogICAgICAgICAgICAgICAgICAgICAgICAgICAgICAgICAgICAgICAg ICAgICAgICAgICAgICAgICAgICAgICAgICAgICAgIC AgICAgICAgICAgICAgICAgICAgICAgICAgICAgDQogICAgICAgICAgICAgICAgICAgICAgICAgICAgIC AgICAgICAgICAgICAgICAgICAgICAgICAgICAgICAgICAgICAgICAgICAgICAgICAgICAgICAgICAgIC AgICAgICAgICAgDQogICAgICAgICAgICAgICAgICAg ICAgICAgICAgICAgICAgICAgICAgICAgICAgICAgICAgICAgICAgICAgICAgICAgICAgICAgICAgICAg ICAgICAgICAgICAgICAgICAgICAgDQogICAgICAgICAgICAgICAgICAgICAgICAgICAgICAgICAgICAg ICAgICAgICAgICAgICAgICAgICAgICAgICAgICAgIC AgICAgICAgICAgICAgICAgICAgICAgICAgICAgICAgDQogICAgICAgICAgICAgICAgICAgICAgICAgIC AgICAgICAgICAgICAgICAgICAgICAgICAgICAgICAgICAgICAgICAgICAgICAgICAgICAgICAgICAgIC AgICAgICAgICAgICAgDQogICAgICAgICAgICAgICAg ICAgICAgICAgICAgICAgICAgICAgICAgICAgICAgICAgICAgICAgICAgICAgICAgICAgICAgICAgICAg ICAgICAgICAgICAgICAgICAgICAgICAgDQogICAgICAgICAgICAgICAgICAgICAgICAgICAgICAgICAg ICAgICAgICAgICAgICAgICAgICAgICAgICAgICAgIC AgICAgICAgICAgICAgICAgICAgICAgICAgICAgICAgICAgDQogICAgICAgICAgICAgICAgICAgICAgIC AgICAgICAgICAgICAgICAgICAgICAgICAgICAgICAgICAgICAgICAgICAgICAgICAgICAgICAgICAgIC AnNKQcEJXyMAHaTJBjNEMyOTv5W0tmAZDcRJDcSB8w YCo7Tk5+HYoQBnXrLZV3yjBevT7CUV2ix9RnYZawKQEqd7YdGXb1YT4HVYOrIVpdCJ4HILgccc6RIYWd KWWqqGARp1obItAxFZZ7NSAgNfdbXO6PSMAiS4kxstRvAMRbQBLYEXjbXXRAIVyaSCAVACByEJXbDqSw JfCiYQDfLWFxJRVORZL9ZPGbRnMwYQxnHI3Ky5WzxM A3DQo+Jh5FFT3ln6XnNVr2GwDdSO9lid4CCZjBLdSpD6IdveM2EDR7YPJoYh3LNMLgWTKqbCU1ZCHsHH JQSkVoN0KomX65WPWYKn7+WVzcebZqYscDXbS5WLKic1XlLAn7GL6ZRBWcQCf5xGHmFQWfE5Cbq2CwFz 71JWRuWchbA7RuDV93oPKoDMJpzxIcvqpgn8IoFU8R MRH7OOiaAJNvZwAjMYFxJLsdMCSPRBjXIpDvP5Dqe2EuVrP6XFVrQmQbOOlzNGYuYkH9TC12tDkxZF3W UTIaERBgZV88XBDpOSQnRm8HKw2XTsLnGY8reh5APMJpZBAtXhlCZdd7XIwrXH0XpSSjH8DcfITjv3rJ RyYmM5ALDPBcCWFyRd9NYQGdVcOpSWLuPVsxLB8hSM HyTKYHxSovbsN3PL8MUO0vgfZtFF7PMlLpFy6vFa3JCnFwQ2IcP6GvFJKnZDHXSJzhMM1SJPskHY5bBU 1Zw8QXfAOrpX3ryj5KTXRfQNJfYtpvvw7QIxjaU5P4hXnrOSXrBLNkKQKKPAszKD6WRFRpAKK4FMZ1Ei VwCZVEMrAnU37wLJ5GC9Bse45aGuT7WUFpBrIpBMzo BW11qEigvdOzlANceRdmTF6WOs8+WVosctPpFtvPQfuuDTCBXnXvRPBRXfQpFGJbDAQnESPeBcA0YbMi Qz3TZCLfMDYkCKEvFjOiCWIrCYZdONymDRKfZPK9PVP7RMEgHEDfHD6XPtAjATIeVkv6HrMxDKEnGZEg mq7QDTTaKWSvHTV2FlIvGJJcUEUiFXzrWBFwQVJbNS WnLPYtUDXcDR6ULgEaJGYwEHG7DnXuJYRrPLEdfa6DGFErQAHuSStsMRCcXJUrEGToALebLGWaSJU6YV IxVUSxPPQzEE7KCoSvCBViLVx5GGxvDNIuTEHmqi4LHGCzTMOlXGAeAWZeAVJmVQQaXLtfRKQjWSG1SP L9WWRhYVFlMR9VWcUrVAQzYWFpXtEgMKIoOOKasa6Y EHYuLUEoSYwvRWPmHXRpPEMsQKwmSKTwRINmWLGsVJSmXEGmRB0RXyMzAOYqXER2IYFtSKTmRBAxoe9G TJVsWDKkIOA7OBLjICQzWENoGDuxCYAxVHJ8DWS8NHHdGOVuRW1RKcZjQLPxCDV3BVMsOWIcQYDdiw1N ORDkHDKfBwF6NVOwKRSnBFSuXIpxPXStTED8Lob5MW PvJLJwTJ2VIeKsCWDrVWV1IfCtTECpGQSskq8AGLHfCOJiLokhXONyVSDsYULeVJguEKKbFBB0IDJsAA XrJMJwPI3EOiHyNOUzGEifVOSyWUHsHHVgra3KDLHeKWPfAIZ7IwOnTUCxPTBwTFhoMTMlNLA1ADYzMO NuSUWyDT7XLlUmOZTdOUo3WJuhWHRmTZEboh7MKOQh QTVbEKDkMoKtGIAzAVHpPVqwLEFrOJEhBMF8ELPmKPMdIE5UNfSjRXPqWmPpKICxVWPiOVQwat2UBBIj WHPjCWb0DiQlOEHpCLOgEXwqRRLaKCNaIFKdDFXcLGRgYK2EAcAkJSShBtHjJEbjCPOyQLQbvs5RAPMm CXNkRGZ2YGXaWXLuYZJrDGdyBRLoPNK2RZp3SEExAP UiAC9QTyQuXSSvTwHaDQGqWDMrHMKczb2MJWTaHCAsOaL0GwYlEMVuDYYpQFqeCSHgNQW2JOdsDDVjVR SeEC3SDzGkREFjEbh7HaYrDXUuJXLsnx3KQGNuTQLpNuqsArAuJJJhGTSoGLflTRIeRRV9OTY4CKGiNS CjSL6UKxKaXBEoGhjzQXUgYZEwGZFoey2YZXLnZPCd HIf8WACrTAPsELLbDFsvRDUfQRW1TUBtPYCwQYFrKC8JJvXbOKHbRATaPRBcKPUvYCDcki6AiISjeVwn dh0SIHcCYy7GfZzsYVQ5UOknSa4rlQS2SXHsOTIHYt6YnyXxKIJaVZEDGRvrHDJaZLv7MMQtAec1F2Hh TlHfKjC6JTCrJRTbOYGdVGC7QrFiQfH7NRD9FOOgQB w6IqMeQQO4YIw8EJEmMSW8Z4Q3CtrfG4M+GQ3cLLc+Ge9Cz3CadfF3dgWbLZr4PWRgYM5LNCNBE8AGIg == ID Date Data Source [id number] 03/24/2021 06:29:29 PM EDT [facility] Name Value Range Interpretation Code Description Data Arabella rce(s) Supporting Document(s) Nursing Note [facility] OXURSi8sHeQXJaOk45/WJZavTZPjs6CnJDozONs7IIfcUDCpM0MeOOS8gW7bQUP3KPgDVoTnYlSfMZX2 lbm [file] P8MBU7FXGeFSWzLsZfOH2MJe7YXtQ6QDR9kCWcQu4VHjXgZOZEQwOpWM8RZHy= ID Date Data Source [id number] 03/24/2021 04:19:00 PM EDT [facility] Patient: SIENNA FOSTER Observation Re port - [facility]VisitID: [id number] [place] [address] [id number], [facility] Date/Time: 03/22/2021 13:25 Weight:72.1 kg (S). Height/Length:68 [...] thoughts)Bees.(Anaphylaxis)Maxalt.(Anaphylaxis) (coma)Seasonal. (Electronically signed by Oskar Sims, P.Maribell 03/23/2021 18:51) Name Value Range Interpretation Code Description Data Arabella rce(s) Supporting Document(s) ID Date Data Source [id number] 03/24/2021 04:11:33 PM EDT [facility] Name Value Range Interpretation Code Description Data [facility] rce(s) Supporting Document(s) Progress Notes [facility] QKXQGm7uGaSTInIm88/SPDyfKBFdw1UtRWjuPJf3WFmzCXLbN5JzXNY8hG4kHTU8CIdOWoCfAfTxUJI8 [facility] [file] DoVlCP5EBDi= ID Date Data Source [id number] 03/24/2021 02:38:34 PM EDT [facility] Name Value Range Interpretation Code Description Data Arabella rce(s) Supporting Document(s) Progress Notes [facility] ZYRMXa9fJsORZdOv32/URIpfVNXvc5JnDWyeQCw2RAshYJPaN5IcXAJ3lM5rRRT9FFnQLfGpIaGcHUP6 lbm [file] XxnO5RE0JKZXmTXZZWLe0UTKJdA44NJOQR+9MvAF11 JTM4II7Y+dKkyMwONuTwNNprGWQ1rJ+6vT3QwzNEoGjARsefyBfiD+yHWwJFHbRSV+UqW+aeBT4A/oP6 dxSYZ41VpmL6/o/fYD9UIDX1f7c/fBR6NEdkKDiW5KfcC9u/PR0oxMu56iZfYbnGoHTZ1eG43aA5MLpS idQXE7Gq2uAPSOtuY/uceBrtOgT/r9P5TX75SOBj9g pWwzawv+sI+W7b8o+BBx6iyg+KkwhQeT5v89iZQ5V13Kl+jSkao21V94fqcP4F5HUQPwErgyiQ/xLUec /7Ge2Ur5WjGQTyVwGq4mQRaoQV3r4ryRj6HhoDzFO9V6/Dze9hMg90U6c+fkF3fC1IUSxjoMd8IFtEkD BC4uRhwfYH2eXxmNiK8yDQv34Df88jpu+kPgUcwXpp eFqYX6joPnGkz931qm4fIIL0Ek0AKLIgEvOS56WN7k51ts+h+2Xr29PaOo3z6viebeEgI7RkSMU4rvA3 j+z+6qidAr/C9Fp6WEDwm7Bi9HixcH6Y0eIeeUO+OJfI5Vz+M+MiFrdH0uUspvrnkRY6xK5LwopPJ8jJ qxncw+keYKHLRSmuluJvqMxVkyhfnDHafxtLnDuuQ9 0pfs84S7/Ph+/dFtUwyOg3k4Z0pINkxNVbTEf0XGwzHN0lM/99kIZnZ+Q9UxYAXMBTE58i39QVHiV3FM oaPiyqSdaRs2IjkQvuCgFPZlMfYOQz2LF4vWb0y+t9Zj2ehqC4Qm7fHsYm4EDJqcvDnVtz7St05uvGJN ewYbo32QXELT8w4EhcO5pqs/n3tSftUK359WIGJD62 BrPVdQoZn8kXnhkeJYR7eAuyN+a7O0GE1qjC+pGlQHjd0pb9tXEA8ZHCQ/C9/hIaLFWSLv+g1wje3SUK qx2D061x4zgdLsep+ZxgRIWVZBi4z5F4ro8fpl+lDrD/xkjNzI/8H1AEHwDgniuYD0s56wiByQcBzDkP ghYfPug4MtD98Yvq2CaXL20jdfRig5f44+JdnrYH+7 lEGE1oJcmGdy7tWLJAIdx8P8y0eE/4ByAt/y2bH+XlPM25pD262vM62XWRwU/iA00EcqDolfhW95tH63 7UWsEju4BuwTbUh96Hb4o+P2rofqkwcuf2eZ5ccKT2tJfWqIntSvemXxZWkDBl6r//tttKJ4Lz57Amq/ +fr07Wvwo8LWXyi+9prvWGizY7UAIvfXhBLuyym0/v BIm//6WESYh7TdLr6YWD9I2dP47JJaW6baU1ET0SVbmAUqSzFn7Zj3sIMn0fmKnmCC9XYyVs7dJ/A/vp site Pywr16E/CQ04hMrAnXswlEhRMns1eLGZNuN9X12/LOddwA1MzyXXOV7JP0tqX3QlqTP5s608p3qUk5cA XxnWuhx+o8T4zjsDlhZrh444h1TPR5oLzC9Bo6RNA6 xqSpNAFDDuLD53sWPE6raaeO9sFcyNjolY37erWkJfqDNBM8G/uy0K+3lEWRlknS85QwR/YOnHZtw3Em YuEcSwv97kj8s95Ip4hh3XY4wvRXEXby2svGxyfr58B8mqHr/oL5lsG4fGuiYyyJztPNY4sWJLmAuSWX 5eJrpLgaFIoKua37/aPJsM0z4Co4FE38jAqvD9SWdX wUp0e4yUgXm7mE/kGwxOAqLyNl8LaYUmvoqZxf6eRLLmq0wXxdEaI4s1dvD0WAlzhMlTXXclyTt5lX2M Q5tzw2vX8Vfa77TXXLfZSu3bSEbq4c1hOjHrOf3vnby1eyducXkYnew8YH7eqSv7cUEH05o9JFiuSj7e YhscAOaEHACnz4ryLsTDVS/ZodVwCqQkqRhwr7MOrj 9DxnsCRkw+wpPcVshgg/ILGTXmF+oXbVYeJlaOVb3Pr8lJoS0sq7P16eKbaFySgwLOqdgQiHCvAOM/YV OOUvD3eNaWPJg1wUkIJBI3GoWunKBL9CgTFyiAhn+rkbE0ua1GPfnXGDhEOUbKfxj8M/u2zGQnYB1XB0 xXPoS6LYUMwmp+YYVVjaIGJA+UGDAUMjIPCpOWNT19 [file] ICAgICAgICAgICAgICAgICAgICAgICAgICAgICAgICAgICAgICAgICAgICAgICAgICAgICAgICAgICAg ICAgICAgICAgICAgICAgICANCiAgICAgICAgICAgICAgICAgICAgICAgICAgICAgICAgICAgICAgICAg ICAgICAgICAgICAgICAgICAgICAgICAgICAgICAgIC AgICAgICAgICAgICAgICAgICAgICAgICAgICANCiAgICAgICAgICAgICAgICAgICAgICAgICAgICAgIC AgICAgICAgICAgICAgICAgICAgICAgICAgICAgICAgICAgICAgICAgICAgICAgICAgICAgICAgICAgIC AgICAgICAgICANCiAgICAgICAgICAgICAgICAgICAg ICAgICAgICAgICAgICAgICAgICAgICAgICAgICAgICAgICAgICAgICAgICAgICAgICAgICAgICAgICAg ICAgICAgICAgICAgICAgICAgICANCiAgICAgICAgICAgICAgICAgICAgICAgICAgICAgICAgICAgICAg ICAgICAgICAgICAgICAgICAgICAgICAgICAgICAgIC AgICAgICAgICAgICAgICAgICAgICAgICAgICAgICANCiAgICAgICAgICAgICAgICAgICAgICAgICAgIC AgICAgICAgICAgICAgICAgICAgICAgICAgICAgICAgICAgICAgICAgICAgICAgICAgICAgICAgICAgIC AgICAgICAgICAgICANCiAgICAgICAgICAgICAgICAg ICAgICAgICAgICAgICAgICAgICAgICAgICAgICAgICAgICAgICAgICAgICAgICAgICAgICAgICAgICAg ICAgICAgICAgICAgICAgICAgICAgICANCiAgICAgICAgICAgICAgICAgICAgICAgICAgICAgICAgICAg ICAgICAgICAgICAgICAgICAgICAgICAgICAgICAgIC AgICAgICAgICAgICAgICAgICAgICAgICAgICAgICAgICANCiAgICAgICAgICAgICAgICAgICAgICAgIC AgICAgICAgICAgICAgICAgICAgICAgICAgICAgICAgICAgICAgICAgICAgICAgICAgICAgICAgICAgIC AgICAgICAgICAgICAgICANCiAgICAgICAgICAgICAg ICAgICAgICAgICAgICAgICAgICAgICAgICAgICAgICAgICAgICAgICAgICAgICAgICAgICAgICAgICAg ICAgICAgICAgICAgICAgICAgICAgICAgICANCjw/fPRyH1pdfDEvpyZ9G6zrSx5QDb3JYH1if0FzZVMd UQodfwUsGtgXLwFzVDPqHyuCUdi6BBlzIL9TbELwW7 TdY8VeTZibUQ8VMLCbDCLoaGCyDASvMTAjPeS6EIAwVTzeBN5EfRRxAStpAIAhKHDmIeJoLLSsTKTfNX BqCYMjXHGKII7RJyMpZ1AcxP67SHACKb4+FSziisDkFplGMxL4HCLjy4BxIYx3FR5BHZHbRwdmn3PdNW CwEDOMUQqtBG2LEUJ3EGK6ATDuPs6CSYLvQ719bzNr TJ5ZTi8NSbWgQD8yso5LQOBzDDSxMdwXDcg9CMwgEM8KpDGlPVnByw1jyaYdxbIRd1XrqhRpnDBFgrae CH3xQ3GiqHn6ZZDBKREOMC3oHHBeOQ0iHe7uOCFqWXPaNrJ6IITKRK7USWZtHHIqgDQxZWSbNOPQSV9J XMqpSCE7RijeieKxuEGlMDhzMI5XIJDgsiBbKKTiOP BSDQo+St3ESF3cu8BjPMt5YvAiNB8veb7HKNxTSiKdL8C7qIMmC9K9DMfdPj3OQSWlHQFxGNXbWEUGCJ dgAN4PYI7zncK0AJ9PzMHfYQAyOYZqhWXtEEh8O73uhANsYVcyWX4CNGE+Mau+Ai5YVVDtJCRrXHMxQk KfNEDFMiHhV3WpL8QEw4RqK2RkFU64jRqftkTtRExm VZ1FAL3nFBKfZOUQAF5TfNLwrM4gsfA5IWKmMUSROoAiH40acPEtNYFmVRDhUXAoUl5DJLDxF2WgcsXt jFtjmoYsONZlZLXCRF6XCRxzlePbaPUjvMkvJP94kIedHE4UDi0SMoPkCN5qum1EmBMnXs8UTAP3Lt8J WLCuWIPmAFRmZZA3CFLzOkQaXJyvDDHlTIFtZOH4VE YdEYCrWB0ABjNgSYItQTz4PNWhYZSsFFIawo9ZURNeDMV0SVD1URHlAQAsFEDvLRcwVSSmUNYqHMF4TL UtAFXsTQ2LJfHiMUOfHEC3ZUqbGOOxXXApqe3PCOSpWQYxHsHxKbNdIYGyMPUkOSlaUBGhRZY5NhE3OG NrVFGbBA5LUoBtUGZtRII7NenoWAHcZMNqfy3HGINd NMBtISNiQNIdSVJeDRUnWLcuNERlKVB2YqT3DWBtOPZoCW4SSnLeKTNnIXv8EuBdOESaUTPebx8IUHKp YTNkAAtgKJEcNRLoFKIkZXewMZXhJPPuKMz5FZPfNMUbVX0VYyAcAVCdGTRwSMreRTEzVWBikv0UIDIb GJYrCTA8EeYhWPJaEIDkUCetENTjJTFbTrT8UKXmAJ YqIE2NFnVlUMFdQFG7GiDsPGEsHHIyor8JOSTlYWDaXnYkQaZiGEPoKMHbZRydQXRgXHE0ZXU7HREnCG NfHW7CCuKgWIToFwJsHQJyOTCxXOCtfy2JGLNiJBEeFUO0VKVgKDQqTAKoCNchRDJbLQN0UzQvTSOeAR RdTW9RHlFdRHZhDaS0BipkOFMaJQQsxz3OCKSxXEJy XfnfEJPeNHXqQLTsLEoxWGCdIXL9CXDeJDTcCSRdHW5VJeFjIKPzYkyeKQdlCHBnHNWxxs0VHNCiQHUd VCYdATGhSPCaUUUgSEfaKLWuVZU2QuR6SENfKURsJO1QDoYzHAKsVea4RTidLTNlSQImxc4SOITiIGL6 TGphNILsCZKqOJHtFDxyIXMvQZKeZAL9FZLlTJQnXY 2FXyYcJKOvKJUwFEOqIUJvFWEqdg2DVIZiUBI7TtD9AOUnJRZwOISrUDbhCYXoLOYuTnLuBAPsIAJvJG 4AFiXvLVHlAIN7IjVwVBTiMIDwkt9OMVGuSYT5Hao3LuEzMXInYAKfQTnnLNCwKTC3GVL3PVAaYDZfNS 1DNkNeVUQvDQn5SKZnHKMhHOAnhe8UNTOrYAK2UCHl FOIuDUApPFRuMZfhKIHiDMN6AZQcERWiOQOuZD9WEzHzEFNnXJk2IpViCGJxNKEtvy0MSHRzAIK0SQos ZYQhWXAsKDVmZRqwPVCfZAHqFbSuAPFvBREuXU7LEaFoZCVrRSX5IAixBFNqPJLtfb2SFAHmEXD6UKba JFOrUOVmPSEeOSgdUPArJKZuSXvlFLEgEYOhRC9VNz PgQMmrMVWZJgf9OSgyG5o5TKE5Cr8BQ7Nix4HxFFCwURNTSJelWW6oxzNeGJWqLr3SM4cESngrXoDbVF Z7MLSjWJR6WzHsLNI5AZS0M6HxUXRiYgP0Pa6iVOS1YpK0FyPnNTX3HdxlQWQ9YXFlCegsECF3AKVgNN DcVbWnGG0GZr7CDdB7GMO6bPYwFw3BCCXrAoVDZnTtKR9VEGi= ID Date Data Source [id number] 03/24/2021 02:35:53 PM EDT [facility] Name Value Range Interpretation Code Description Data Arabella rce(s) Supporting Document(s) Consults [facility] RDQLVw6zRsHGIxWe79/PSHkhVTCdh7IrEFknYVm3XSlyVDYeQ4PtFOS6vR8dNEV7BPfMFnJzVbSlHOF5 lbm [file] AgICAgICAgICAgICAgICAgICAgICAgICAgICAgICAg ICAgICAgICAgICAgICAgICAgICAgICAgICAgICAgICAgICAgICAgICAgICAgICAgICAgICAgICAgICAg ICAgICAgICANCiAgICAgICAgICAgICAgICAgICAgICAgICAgICAgICAgICAgICAgICAgICAgICAgICAg ICAgICAgICAgICAgICAgICAgICAgICAgICAgICAgIC AgICAgICAgICAgICAgICAgICANCiAgICAgICAgICAgICAgICAgICAgICAgICAgICAgICAgICAgICAgIC AgICAgICAgICAgICAgICAgICAgICAgICAgICAgICAgICAgICAgICAgICAgICAgICAgICAgICAgICAgIC ANCiAgICAgICAgICAgICAgICAgICAgICAgICAgICAg ICAgICAgICAgICAgICAgICAgICAgICAgICAgICAgICAgICAgICAgICAgICAgICAgICAgICAgICAgICAg ICAgICAgICAgICANCiAgICAgICAgICAgICAgICAgICAgICAgICAgICAgICAgICAgICAgICAgICAgICAg ICAgICAgICAgICAgICAgICAgICAgICAgICAgICAgIC AgICAgICAgICAgICAgICAgICAgICANCiAgICAgICAgICAgICAgICAgICAgICAgICAgICAgICAgICAgIC AgICAgICAgICAgICAgICAgICAgICAgICAgICAgICAgICAgICAgICAgICAgICAgICAgICAgICAgICAgIC AgICANCiAgICAgICAgICAgICAgICAgICAgICAgICAg ICAgICAgICAgICAgICAgICAgICAgICAgICAgICAgICAgICAgICAgICAgICAgICAgICAgICAgICAgICAg ICAgICAgICAgICAgICANCiAgICAgICAgICAgICAgICAgICAgICAgICAgICAgICAgICAgICAgICAgICAg ICAgICAgICAgICAgICAgICAgICAgICAgICAgICAgIC AgICAgICAgICAgICAgICAgICAgICAgICANCiAgICAgICAgICAgICAgICAgICAgICAgICAgICAgICAgIC AgICAgICAgICAgICAgICAgICAgICAgICAgICAgICAgICAgICAgICAgICAgICAgICAgICAgICAgICAgIC AgICAgICANCiAgICAgICAgICAgICAgICAgICAgICAg ICAgICAgICAgICAgICAgICAgICAgICAgICAgICAgICAgICAgICAgICAgICAgICAgICAgICAgICAgICAg ICAgICAgICAgICAgICAgICANCjw/rOOjT5bziGEjsnB4R0anDj6DTq4HDY3ud5ChZJVnJMbnuiGuGyhK CsKrZUWrRqjPTcs3JLmuGB7XqCTzM4WtQ5XrMQudNI 8RRCVjZEAihUOuRWErRYOeUvS9WQVkOThpZW4VxEFqFGufQZGlIFZkTmKdMSCfAYUgIMPgFMYaSOQDZZ JlOIVyIzQwXGEvGFWaWJfmMCFHTYV4BRUnVkEcSKcqNC5Nj7TudOP8EWk+Nh5MQD7gb5FxTJl7LzBzCI 2rvm6PQIgVVoLzF0KwkhK6ORBkANKoLs2NILSgNOJy oPN1YyUnPQSDGrCsN4GthM12LXTVEc9+IZfswuLrXvdWPmFsLEVid8LpSZc0IW6TXRJhPRf8kPYdB29p o5YdsAIsNetbE5mmcXxnfKBHCRfvKBIpkcdvEYKzWISjLQ7aVl4aMXWfTGXoVzWjUXQAFM2JABBaMVKu cUWuUJNuJSTLMF7GMWnvXRN6RizujpJcwCLzGJvmFQ 9QYXJlbnQgNDIgMCBSDQo+Lp1KSQ8ie5EiUEb9ZNIbBW4gdi1DCPnMLzKgC5A3mLHaJ7R3UVoaSo4TRO XoPVRhBZXiTVETRRurOA0IYQ2axqK2JT0GvVGgMOBcHLGwyOHsUKb8P67esOZmMSzhJT7JWAC+Mau+Pg 9OLXUtXMKcWZFwNuSuTFLUOhPhY2MhV2GSm3YsC6Wa HS32xBzfhlRyLNtkYF9SGJ1eFWXzRLUXNI6BuCOphE1dkqS3SzIpBZKHRfFlS08zoPXeUPIfZWFeZTDt Rz0VHWUyZ0VagyCvzIhcefIlJNUaSIBQXS3XCHltkbXbyOTwxWpsCX26lCgzMW7ZTl1PWfGeJE9ugc3L wEJjZa0FLZX4JT9WTAUlAUWoLVTaHQO7JFJlMbYwPN vqJNAzLZVcASS2GTDtJVXqTJ2UOrVuULTtZmoyTNuxYAPpOWUtao1JWQQdJVY1ZJAnLqWxGOVqOVNsRS diNCDnVUKnHKP0ZAHyBRApJW2NPgRqZRFpDGTnKqZePQPwDJUnxg9JOJQiUXXrVuV9QBAlOEEoHWWiWR seQKTaCBH6UhqjHBXkCMCsVK5OFfWdQSMxTTX2ILFu WVQvNANfnm3ISQJwUVYcFQY4LrJdMPAgHCLkNFcvKIOjZZZ7DIg9PJLzGVKiDS5CClLcLQIvDKA5YAaj MMVoZIMgiz6QFQUhZQOvNHZ4GMHkYSNqMTEuYYoxELNmXDVfZUK9HFIrQVUqDE4WUfVkJKFbCJS1AEYi EUUxVNSurb3QFVPwQTBfZTH9SKQlUZKhQUYgRGudOZ EjIRZ6OAw7DXEtRZRfSF9CZzXwXKQoQRhoNCOoPMTbCJPgfg0MXAHlZVHwPsX9PGMiQDClZFUjHTocBA PwEAX2UTI7ZKArYLHwSY8CQvPhUSDbSQrbKjEvTUAxUHUznk5JHFLkBIPqVCTuYRUiGAGkTYScPJgxAB JhBVT7WXZaRAFzXOOnXH1LPmYtMLAgUFc1ICKaTPAa GKCbib9WUDXnOURzNXL3NKYtNARlVWRxNHeqPAWlMPZyUlR8VTUtLTPoJV3QJcFoHWSiPdF9IWQlIPEp PCSyvf7ZCVYhQTUcAAakPLNuTIYiGYRnSEsoOXXpNMLyNBG6AQSdZKRhWO4XTmJiNWRgFdSeBEDsXDPk FRQgpa9FMXCbZBOlXqM0JXSyXOAzBYViZTjqGJCsCT XsTZO8WHJqCRTsWL5AJaWlPSRjNpF4WOPpDRRbIPPfah8HRKTyCGZoRSCgPOPtAIZzUOPlKQviJSYyTL R5ZDY4NEJmHZJrRB7UTsJpRRWkSyU2LIWlBBVeXEMhkc8TBBZzNIHxQCHdXGTfAFXnPDDhTMcsAIHwDO M6ZxD0GXIhSIXiLJ6GZdWyKLEqHmm7URbeDSRoEBFx cs3CGAWzMGGhHTI7XFSnUVMvIJUpOMncZPFmFAO9CfF6GUVnULGnVI2ONwQbDQPhKim2EDVgXZUjLWFh zu5UULGuJRE4FVH8AQLePTHxKHZwTVpfUAYoPMKaBiBbKWXrMEZbIA1LWaKyYUKbLIZhPJneHLAnWQWh mr7IgCDmiJkyga8NZZdDUp4GiMzpCIB6EJryMl9zjL E9OCTgUDAMCk7UfnRfTHCkGBOCIAtdRFOlDBriNWZcSPN3RBVaAAVvZJA3YQH4TFDkScLiFQPhIoX2Mw L0N5D5XgPhGKXcNwM3GsK3RiihGqo5LkH6ArMzYaEwYoU+ZU6aDKp+Ml3Ji0XddzZ5zrAdUGf4OEJqMU 7AUZGXX8ZDOl== ID Date Data Source [id number] 03/24/2021 02:16:15 PM EDT [facility] Name Value Range Interpretation Code Description Data Arabella rce(s) Supporting Document(s) Care Plan [facility] ASOITe5jAjDEEbVs63/OEZbxKXDal5ZqKEbaDHe0ERzjSDMdA5IeMOV6fY8wCIC2NCuJDiAvLzNuSHU2 lbm [file] Cj4+GOdzzOVvaLltRUURTxYwYCL7UOwtVESSBe3R ID Date Data Source [id number] 03/24/2021 01:20:24 PM EDT [facility] Name Value Range Interpretation Code Description Data Arabella rce(s) Supporting Document(s) Consults [facility] XVNRDg9bUiBVFuRt74/GUYmbSWWyo9UyONpfUYq7GBwmFADdX6EjMKL1aL9oJIA0GFdYWhKvVqJqWDS0 lbm [file] X9ORZXJtWrNT9ZIDd= ID Date Data Source [id number] 03/24/2021 12:26:04 PM EDT [facility] Name Value Range Interpretation Code Description Data Arabella rce(s) Supporting Document(s) Progress Notes [facility] XYVQFz8zFoKIHxKd32/LUMlwDEVwz2FtIThtUEh0VRlcMGEpW9PsIZX0cT8zNYF1XCbIUgRyFnAjBWM4 lbm [file] QuQXU7K7PbOPK0YdF9AYVoBaMmTQ7APm3DVfR2EGW6iTJzOy2VYaN1BBEBAwDeVM6UDQe= ID Date Data Source [id number] 03/24/2021 12:13:35 PM EDT [facility] Name Value Range Interpretation Code Description Data Arabella rce(s) Supporting Document(s) Progress Notes [facility] TEFSVo2sDjNCOfVh19/VXSolVQDkq2XcFXzxBNb9HBmcNPXeM3EoEGC9uZ1jIJL6HTsRCiFcSoOnCMS2 lbm [file] 0K ID Date Data Source [id number] 03/24/2021 05:26:27 AM EDT [facility] Name Value Range Interpretation Code Description Data Arabella rce(s) Supporting Document(s) Nursing Note [facility] MQVNKf6cAdKWOnVm18/ZUNfhZNRxt6AyDTzxPOf9IOgcNIHzR2UlOXP8bL1iKIN8SVxCPmWzCfWcHTD1 lbm [file] EnNFWzXqL5EhE5OaRsPGKqJiGiRV3CBs3ZCmQ9UAT2aBDhHx6UXyTbLVdQQuVfLF6DRZt= ID Date Data Source [id number] 03/24/2021 05:34:00 AM EDT [facility] Name Value Range Interpretation Code Description Data Arabella rce(s) Supporting Document(s) AST 12 IU/L 15-37 Below low normal [facility] Sulfasalazine and sulfapyridine have the potential to falsely depressAspartate Aminotransferase results. Baseline values before medication administration are recommended. ALT 17 IU/L 13-56 Normal (applies to non-numeric resul ts) [facility] Sulfasalazine and sulfapyridine have the potential to falsely depressAlanine Aminotransferase results. Baseline values before medication administration are recommended. Alkaline Phosphatase 53 mIU/ml 50-136 Normal (applies to non-num madiha results) [facility] Total Bilirubin 0.70 mg/dl 0.20-1.00 Normal (applies to non-numeric results) [facility] Blood Urea Nitrogen 6 mg/dl 7-18 Below low normal [facility] Creatinine 0.62 mg/dl 0.51-0.95 Normal (applies to non-numeric resul ts) [facility] N-Acetylcysteine (NAC) and Metamizole em ve the potential to falselydepress Creatinine results. Baseline values before medication adminstration are recommended. Patients undergoing treatment with phenindione will have falselydepressed results. Patients on phenindione therapy should be tested with an alternativeCREA method.Toxic levels of acetaminophen may lead to falsely depressed results forpatient samples. Glomerular Filtration Rate >90.00 mL/min/1.73m2 [facility] GFR Reference Ranges:Normal Function or Mild [...] of Health and the National KidneyFoundation. The Norden method used in calculating this result is traceable to IDMS standards. Glucose 91 mg/dl 70-110 Normal (applies to non-numeric resul ts) [facility] Sulfasalazine has the potential to false ly depress Glucose results. Sulfapyridine has the potential to falsely elevate Glucose results. Baseline values before medication administration are recommended. Calcium 8.2 mg/dl 8.5-10.1 Below low normal [facility] Total Protein 6.2 g/dl 6.4-8.2 Below low normal [facility] Albumin 2.8 g/dl 3.4-5.0 Below low normal [facility] Sodium 141 mEq/L 136-145 Normal (applies to non-numeric resul ts) [facility] Potassium 3.9 mEq/L 3.5-5.1 Normal (applies to non-numeric resul ts) [facility] Chloride 113.0 mEq/L 98.0-107.0 Above high normal [facility] Anion Gap 8.1 [facility] Carbon Dioxide 23.8 mMol/L 21.0-32.0 Normal (applies to non-numeric results) [facility] The above 16 analytes were performed by [facility] [id number] [facility], ,[place] [address] ID Date Data Source [id number] 03/24/2021 05:34:00 AM EDT [facility] Name Value Range Interpretation Code Description Data Arabella rce(s) Supporting Document(s) Magnesium 2.0 mg/dl 1.6-2.6 Normal (applies to non-numeric resul ts) [facility] The above 1 analytes were performed by [facility] [id number], ,[place] [address] ID Date Data Source [id number] 03/24/2021 05:26:00 AM EDT [facility] Name Value Range Interpretation Code Description Data Arabella rce(s) Supporting Document(s) WBC 6.03 x1000/ul 4.80-10.00 Normal (applies to non-numeric re sults) [facility] RBC 3.58 x1Mil/ul 4.20-5.40 Below low normal [facility] Hemoglobin 9.3 g/dl 12.0-16.0 Below low normal [facility] Hematocrit 30.2 % 37.0-47.0 Below low normal [facility] MCV 84.4 fL 81.0-99.0 Normal (applies to non-numeric resul ts) [facility] MCH 26.0 pg 27.0-31.0 Below low normal [facility] MCHC 30.8 g/dl 32.2-37.0 Below low normal [facility] RDW 16.3 % 11.5-14.5 Above high normal [facility] Platelet Count 230 x1000/ul 130-400 Normal (applies to non-numeric results) [facility] MPV 11.6 fL 9.4-12.4 Normal (applies to non-numeric resul ts) [facility] Neutrophils 46.6 % 40.0-74.0 Normal (applies to non-numeric resu lts) [facility] Lymphocytes 41.1 % 19.0-48.0 Normal (applies to non-numeric resu lts) [facility] [facility] Monocytes 9.1 % 3.4-9.0 Above high normal [facility] Eosinophils 2.0 % 0.0-7.0 Normal (applies to non-numeric resu lts) [facility] Basophils 1.0 % 0.0-2.0 Normal (applies to non-numeric resul ts) [facility] Immature Granulocytes 0.2 % 0.0-0.5 Normal (applies to non-nu meric results) [facility] Nucleated RBCs 0.00 % 0.00-0.20 Normal (applies to non-numeric r esults) [facility] Abs. Neutrophils 2.81 x1000/ul 1.92-8.31 Normal (applies to non-numeric results) [facility] Abs. Lymphocyte 2.48 x1000/ul 1.20-3.70 Normal (applies to non-n umeric results) [facility] Abs. Monocytes 0.55 x1000/ul 0.14-0.97 Normal (applies to non-nu meric results) [facility] Abs. Eosinophils 0.12 x1000/ul 0.00-0.76 Normal (applie s to non-numeric results) [facility] Abs. Basophils 0.06 x1000/ul 0.00-0.22 Normal (applies to non-n umeric results) [facility] Abs. Immature Gran. 0.01 x1000/ul 0.00-0.02 Normal (appl ies to non-numeric results) [facility] Abs. Nucleated RBCs 0.00 x1000/ul 0.00-0.02 Normal (appl ies to non-numeric results) [facility] The above 24 analytes were performed by [facility] [id number] [address] ID Date Data Source [id number] 03/23/2021 11:42:40 PM EDT [facility] Name Value Range Interpretation Code Description Data Arabella rce(s) Supporting Document(s) Care Plan [facility] DVNTIm4eZnJSKpTw96/FFRihBLPok5HwIIroKFh7NXkiTJHrS3XwEPK3wY4sZPY9APvFEkFsSiKtKGS5 lbm [file] AgICAgICAgICAgICAgICAgICAgICAgICAgICAgICAg ICAgICAgICAgICAgICAgICAgICAgICAgICAgICAgICAgICANCiAgICAgICAgICAgICAgICAgICAgICAg ICAgICAgICAgICAgICAgICAgICAgICAgICAgICAgICAgICAgICAgICAgICAgICAgICAgICAgICAgICAg ICAgICAgICAgICAgICAgICANCiAgICAgICAgICAgIC AgICAgICAgICAgICAgICAgICAgICAgICAgICAgICAgICAgICAgICAgICAgICAgICAgICAgICAgICAgIC AgICAgICAgICAgICAgICAgICAgICAgICAgICANCiAgICAgICAgICAgICAgICAgICAgICAgICAgICAgIC AgICAgICAgICAgICAgICAgICAgICAgICAgICAgICAg ICAgICAgICAgICAgICAgICAgICAgICAgICAgICAgICAgICAgICANCiAgICAgICAgICAgICAgICAgICAg ICAgICAgICAgICAgICAgICAgICAgICAgICAgICAgICAgICAgICAgICAgICAgICAgICAgICAgICAgICAg ICAgICAgICAgICAgICAgICAgICANCiAgICAgICAgIC AgICAgICAgICAgICAgICAgICAgICAgICAgICAgICAgICAgICAgICAgICAgICAgICAgICAgICAgICAgIC AgICAgICAgICAgICAgICAgICAgICAgICAgICAgICANCiAgICAgICAgICAgICAgICAgICAgICAgICAgIC AgICAgICAgICAgICAgICAgICAgICAgICAgICAgICAg ICAgICAgICAgICAgICAgICAgICAgICAgICAgICAgICAgICAgICAgICANCiAgICAgICAgICAgICAgICAg ICAgICAgICAgICAgICAgICAgICAgICAgICAgICAgICAgICAgICAgICAgICAgICAgICAgICAgICAgICAg ICAgICAgICAgICAgICAgICAgICAgICANCiAgICAgIC AgICAgICAgICAgICAgICAgICAgICAgICAgICAgICAgICAgICAgICAgICAgICAgICAgICAgICAgICAgIC AgICAgICAgICAgICAgICAgICAgICAgICAgICAgICAgICANCiAgICAgICAgICAgICAgICAgICAgICAgIC AgICAgICAgICAgICAgICAgICAgICAgICAgICAgICAg ICAgICAgICAgICAgICAgICAgICAgICAgICAgICAgICAgICAgICAgICAgICANCjw/zROyN6yinKZkfyM8 K1evHz8PXc7FPP8va1LiRXJcZDlpcnBwKotBBhVrXJDzNfwPUkv0MHulCS8QjQGeT2IaY6MoAGnzZB8L BBXjTWMiiGNcZVBsJWWaIgG8RJIqDTvuVC9RbXJjHK kmQUEpOMMlEM0LKKMxN607zxOkXV9QHi4QGnVsAY7ohc3FGdBoJIWzTrfMGvl6ODrnKK1EeLMofCIlXn VyWDAZPtAqL7uog1CuDcFqLOONWPsyYF2To5IzcALiWPu+Mx7WFU8cj2XvJCogMbPdHM3ujg1QHNeRDx BkD7VnyCszSCOmfiVfGVetyiJnnRWYNWX1AB3rEBOj xoIaYSyvRIRQRLL6RBbvSIKhJsQqMEGaLWy5HvMIAVrMXsZwA1Pzc5BeReZ0GMQwVkNvEJfrGXLfIuS1 UJ24zLxoFR8DDQFqJVMvHV63ZZH8OXUlMo9BJp3ORbNxCC1hkw9IIsndJNXhOtnJIox5AXxjWS8FaWGx O5ZnrPWqd4gEXzEcR7IVMIJgBDXwHt4MYJQxZuIsMH UhHKlvWL6kHNIlRDDAsYazlyG5CR3JDK4nvmGaVN5JFzKbWr2hFw0SApQzX4XdR6OpSBEwLKQZSSjbTN 0KQKolOV8yZF9Ap3BQbIBrsI6nek5KXOIoXOHlOaquvy7EVeqcD8T4gQozYEWbQgYyJHZNHUkxCC3AUN SyLQD9HDElTBVqXULDFoTbQ36uUQ7BN0Bew93nGqM2 URItQsTgHIcrCF13fFkxvuOtcSAkkQtzDW7DLd0+DQplbmRvYmoNCnhyZWYNCjAgMjgNCjAwMDAwMDAw FHNdGpX2GmHpXa9VAHBsWGJnLJWbGfIiOCEgBPVqBRgqWQGcZHMxFvKiEGWyZMEqPR2IVkMeUIPmBrU1 NFLlXTQfVHYhgg2GYHLiGFMpXIT4ZkTmHEYbNXAnYV nkGGJmJMMtDYI1CEOwYNAsNI2KNtReBZXvZUAwBhAvSTTbNDBqwx8GCPKbNGMaNnUpAEGwSWViAWJrSE npPMJbSMMaZbJ6YNUtWXKeSE1SCcVhHHViJOI3DKGaZGVrBAJkhl7ZUXXoVLLgFJY9XvVyJUHyKMYvHN veVXWpNJN6UllnMVDaQSNaUH3VCsWjBZDvUIN9VSIp PNUpXCJhkh1IXFQxXXUxKcJuJWXzXVYdEJIeJJswCQMfEGE7LXW2WDYoLMCeFC2VTvIaELYaZDv7CsMq GOEbNFHpgw5GREXbPKMkZpc4PuJbBGMrXBUlRKhcGDZdVXP2OFVfQBMoGZUgXY1BIuHoOTQzPOrcTHAs XKCxAMXlkr3TGMLzXOXbQIT5XrQnJIUaCZFhMNerQC TfNWY2EPA7GNPiGKRnKB2GWkWxESJtLqQdSZQqYODfESDbhe7ZDRRkPYGpVAN9UWTiQRNfUQPgKIsjVY DpVOPkFnQ5WXWzNMNhAK6SMwTnICWjUdWkMxLvNUIpAOYigc1RCXUvOSOwIqJvNGVwVKJsWGHpHRvvWT NkLGAiSns8BFRjJEQxVP8JTwKgQODmIcK3KsNmLYZe TNYcra7AkRGpmIoxyw2RVSrCIu9KrVbbIGD7GYdmOq5szRIuImNnFQHYUv5KukCxJQBzYDJJSYqzRUQv ZTaaJIy7SzB3CGIqKWPsJlXgJRFxNTXeNlSsMEbdAtqbUdU1QNB1NGsgCmOkXAGcTBB0U7BcFvV9GyGv VQS4DQKuLHD+HP6mAKv+Ah5Uv3KqnfD7mzEeJBuuKsB6YS2BDZHWV3HFQv== ID Date Data Source [id number] 03/23/2021 10:26:00 PM EDT [facility] Name Value Range Interpretation Code Description Data Arabella rce(s) Supporting Document(s) Glucose, Fingerstick 103 mg/dl 70-110 Normal (applies to non-num madiha results) [facility] The above 1 analytes were performed by [facility] [address] [facility], ,[place] [address] ID Date Data Source [id number] 03/23/2021 10:23:00 PM EDT [facility] Name Value Range Interpretation Code Description Data Arabella rce(s) Supporting Document(s) Lactic Acid 1.8 mMol/L 0.4-2.0 Normal (applies to non-numeric resu lts) [facility] The above 1 analytes were performed by [facility] [address] [facility], ,[place] [address] ID Date Data Source [id number] 03/23/2021 09:48:00 PM EDT [facility] Name Value Range Interpretation Code Description Data Arabella rce(s) Supporting Document(s) AST 12 IU/L 15-37 Below low normal [facility] Sulfasalazine and sulfapyridine have the potential to falsely depressAspartate Aminotransferase results. Baseline values before medication administration are recommended. ALT 16 IU/L 13-56 Normal (applies to non-numeric resul ts) [facility] Sulfasalazine and sulfapyridine have the potential to falsely depressAlanine Aminotransferase results. Baseline values before medication administration are recommended. Alkaline Phosphatase 56 mIU/ml 50-136 Normal (applies to non-num madiha results) [facility] Total Bilirubin 0.80 mg/dl 0.20-1.00 Normal (applies to non-numeric results) [facility] Blood Urea Nitrogen 7 mg/dl 7-18 Normal (applies to non-nume ny results) [facility] Creatinine 0.67 mg/dl 0.51-0.95 Normal (applies to non-numeric resul ts) [facility] N-Acetylcysteine (NAC) and Metamizole em ve the potential to falselydepress Creatinine results. Baseline values before medication adminstration are recommended. Patients undergoing treatment with phenindione will have falselydepressed results. Patients on phenindione therapy should be tested with an alternativeCREA method.Toxic levels of acetaminophen may lead to falsely depressed results forpatient samples. Glomerular Filtration Rate >90.00 mL/min/1.73m2 [facility] GFR Reference Ranges:Normal Function or Mild [...] of Health and the National KidneyFoundation. The Norden method used in calculating this result is traceable to IDMS standards. Glucose 48 mg/dl 70-110 Below lower panic limits [facility] Sulfasalazine has the potential to false ly depress Glucose results. Sulfapyridine has the potential to falsely elevate Glucose results. Baseline values before medication administration are recommended.Repeat and Verified Called To (First Last):OBEY VALENTINE Degree/Accreditation of Person Called:RNLocation Called: [id number] Tests and Results Called:GLU 48Additional Tests that were Called:Read Back (Y/N):YDate:03/23/2021Time:2148By:CARTER CORDOBA Calcium 8.2 mg/dl 8.5-10.1 Below low normal [facility] Total Protein 6.6 g/dl 6.4-8.2 Normal (applies to non-numeric re sults) [facility] Albumin 3.0 g/dl 3.4-5.0 Below low normal [facility] Sodium 140 mEq/L 136-145 Normal (applies to non-numeric resul ts) [facility] Potassium 3.3 mEq/L 3.5-5.1 Below low normal [facility] Chloride 114.0 mEq/L 98.0-107.0 Above high normal [facility] Anion Gap 8.3 [facility] Carbon Dioxide 21.0 mMol/L 21.0-32.0 Normal (applies to non-numeric results) [facility] The above 16 analytes were performed by [facility] [address] [facility], ,[place] [address] ID Date Data Source [id number] 03/23/2021 09:30:00 PM EDT [facility] Name Value Range Interpretation Code Description Data Arabella rce(s) Supporting Document(s) Magnesium 2.0 mg/dl 1.6-2.6 Normal (applies to non-numeric resul ts) [facility] The above 1 analytes were performed by [facility] [address] [facility], ,[place] [address] ID Date Data Source [id number] 03/23/2021 09:30:00 PM EDT [facility] Name Value Range Interpretation Code Description Data Arabella rce(s) Supporting Document(s) C-Reactive Protein (Non-Cardiac) <2.90 mg/L 0.00-3.00 Normal (applies to non- numeric results) [facility] The above 1 analytes were performed by [facility] [id number], ,[place] [address] ID Date Data Source [id number] 03/23/2021 09:05:00 PM EDT [facility] Name Value Range Interpretation Code Description Data Arabella rce(s) Supporting Document(s) WBC 6.19 x1000/ul 4.80-10.00 Normal (applies to non-numeric re sults) [facility] RBC 3.47 x1Mil/ul 4.20-5.40 Below low normal [facility] Hemoglobin 9.1 g/dl 12.0-16.0 Below low normal [facility] Hematocrit 29.8 % 37.0-47.0 Below low normal [facility] MCV 85.9 fL 81.0-99.0 Normal (applies to non-numeric resul ts) [facility] MCH 26.2 pg 27.0-31.0 Below low normal [facility] MCHC 30.5 g/dl 32.2-37.0 Below low normal [facility] RDW 16.8 % 11.5-14.5 Above high normal [facility] Platelet Count 228 x1000/ul 130-400 Normal (applies to non-numeric results) [facility] MPV 11.4 fL 9.4-12.4 Normal (applies to non-numeric resul ts) [facility] Neutrophils 54.6 % 40.0-74.0 Normal (applies to non-numeric resu lts) [facility] Lymphocytes 34.7 % 19.0-48.0 Normal (applies to non-numeric resu lts) [facility] Monocytes 8.7 % 3.4-9.0 Normal (applies to non-numeric resul ts) [facility] Eosinophils 1.1 % 0.0-7.0 Normal (applies to non-numeric resu lts) [facility] Basophils 0.6 % 0.0-2.0 Normal (applies to non-numeric resul ts) [facility] Immature Granulocytes 0.3 % 0.0-0.5 Normal (applies to non-nu meric results) [facility] Nucleated RBCs 0.00 % 0.00-0.20 Normal (applies to non-numeric r esults) [facility] Abs. Neutrophils 3.37 x1000/ul 1.92-8.31 Normal (applies to non-numeric results) [facility] Abs. Lymphocyte 2.15 x1000/ul 1.20-3.70 Normal (applies to non-n umeric results) [facility] Abs. Monocytes 0.54 x1000/ul 0.14-0.97 Normal (applies to non-nu meric results) [facility] Abs. Eosinophils 0.07 x1000/ul 0.00-0.76 Normal (applie s to non-numeric results) [facility] Abs. Basophils 0.04 x1000/ul 0.00-0.22 Normal (applies to non-n umeric results) [facility] Abs. Immature Gran. 0.02 x1000/ul 0.00-0.02 Normal (appl ies to non-numeric results) [facility] Abs. Nucleated RBCs 0.00 x1000/ul 0.00-0.02 Normal (appl ies to non-numeric results) [facility] The above 24 analytes were performed by [facility] [address], ,[place] [id number] ID Date Data Source [id number] 03/23/2021 07:56:26 PM EDT [facility] Name Value Range Interpretation Code Description Data Arabella rce(s) Supporting Document(s) Nursing Note [facility] GFOAHf6rGeGJJaEx06/IOQvuVNQgx1WhRVrtEDe9CErwUAXjJ2SoRER1oK3cBMS7YQkPXsEpTuYhTJQ0 [facility] [file] [id number]= ID Date Data Source [id number] 03/23/2021 06:01:26 PM EDT [facility] Name Value Range Interpretation Code Description Data Arabella rce(s) Supporting Document(s) H&P [facility] JQLWEs9gWgZJPiQr02/BFVjlGLFrk0UqYCecUCz6XSkwBOHaR4GjSFM2mT7mNXS5NNlFPiViRzRzZBL8 lbm [file] AgICAgICAgICAgICAgICAgICAgICAgICAgICAgICAgICAgICAgICAgICAgICAgICAgICAgICAgICAgIC JdYZCiUNCbFKXpBZGqPJOoAZQcSN1MPUAbGEQiFNSr ICAgICAgICAgICAgICAgICAgICAgICAgICAgICAgICAgICAgICAgICAgICAgICAgICAgICAgICAgICAg QSRiHOWhLGMlMFTuUQFnRGRzASZpEUPlBKDkVNQkPE6RJBOnQSVwFCCbGYOvGPIeOIRmCEYqGVQzNTIq ICAgICAgICAgICAgICAgICAgICAgICAgICAgICAgIC MzAPHvFKLmKZGcJBIrUEWiQAZiTZHhWOZnYNMvRNEdPWCqWTTuBPYbUJ3VJPDgAWOaEJLhFJBzTVHrQJ AgICAgICAgICAgICAgICAgICAgICAgICAgICAgICAgICAgICAgICAgICAgICAgICAgICAgICAgICAgIC FqSDKxCZKxYSLaVVWyBRLeTLKmPSXdQV3LYHVmTBPn ICAgICAgICAgICAgICAgICAgICAgICAgICAgICAgICAgICAgICAgICAgICAgICAgICAgICAgICAgICAg XUXaYHIzDMXiJJPhQQMyHGFyRXYjIARpEJNtWASvQNJvKT7MUJOpNVCsRHMhAFItGOFtKMReGANxAOEt ICAgICAgICAgICAgICAgICAgICAgICAgICAgICAgIC MmWLDbXLQkEYVqIMJxWWQfTZFvQDKkAUNqFLIpTGXwOEBeYFKvFOCyKIEeEV0XNOZvINCfYYZiSOBjSY AgICAgICAgICAgICAgICAgICAgICAgICAgICAgICAgICAgICAgICAgICAgICAgICAgICAgICAgICAgIC WfRVJvSHQzPSEfWNDkRUCwRFZdFIIjZEInZC8IHJHq ICAgICAgICAgICAgICAgICAgICAgICAgICAgICAgICAgICAgICAgICAgICAgICAgICAgICAgICAgICAg HFNxXSHzXUBzVHZhTTTeOLZdQNXnXSWlZIWfYUAlMTLzCOYyIG8VYQXnZZDvLQNrEUYkJSFvZDRfMKWq ICAgICAgICAgICAgICAgICAgICAgICAgICAgICAgIC PgWHWfMXRhYREeUQNvLDTtOFIlHPWtRHJlVVEzCJGrSLFfBMMuYOUbUPSjLGOsNW9DIUIkNXUnNUVxRP AgICAgICAgICAgICAgICAgICAgICAgICAgICAgICAgICAgICAgICAgICAgICAgICAgICAgICAgICAgIC HzDUCqCXRfULLuWNKqOIRqKJDqEZEnIMPoBNYdLH5L QH62rXAkr2M5UUFgPD2susd/Qb2LIIswomMzhLDlVU8FNmDxSD1xgx1MMpYjBZ8ijn1WHPhOJoBvI5G3 fTHfZHWfRNDDFgIeL88fQCtdIb88SOjjLNGrPiYuDMo5Td1BBqUrI5kmMGDsRmL5TXPiUqD8QRVsSiX5 KUBvAfWsTCKdTHMgDI1ZKWVbL915oxNhWD8YRo2BUi TkME6xgb5EZkgtDJDbEivSTks1QLjxZC9IvJCsbQPqTCBnKQSITvReG5ecs8GeJjleEZAUSVgfHB7Hd7 VudCAxDQo+Nr2BFG8fg1WaBGjqCMItRP6kny1JLIeMUaHxF0FhcKzfUXswJBQpoDKXvVNoivICxKNrTR SZESTkjLK2LgK9DmLkViAvQOI3QLBvIX2rMCvmEV0I XTD5UZhvETUhHXRbI9hAHfCuNIeaUVNhiPyeCX5YAvFkP3XlndRepEDlMyTvTCOENi3+DQplbmRvYmoN KmA7NZNue6ObLDe4BQ1KAIZzCViyCU3GWXImlB4qCOcfIN2HYtRjTBCzNIEQHzJpI28vyZFjCGh2X3Ya YmVkZGVkRmlsZXMgPDwvTmFtZXMgWyBdDQogID4+ID 4+WLkdLO6NYLvjciKiBEJaQj8VSKVcSNLpWR1oSZZiVLGeY3Z7rBgiTTDSMmAjT5wytvybZS8gBPMjV6 66dAcmjzRxZEU6UUAtMj5DFBZrOMT2STYgeRLcEuIbBPPXREinHK9IhPAfBGZ8gD7wVVsvTBQqCMXoR9 dLGlJezHekUL96iIdgmpTqzVDtKGh+Un5KFJ7ry6Ry TVt6yyXkLGqtLCQmULynFYDbZVGdYCNlALN3UXT1YQZHWrDmLUQjXAUwNPnvVTFyINGdxl0HTMYpCNDs WNC6IOLgLRMiUEMnPAupDLQnROHkGVBvWRGfNWNmVQ0XHnSuJGTcYKHqKXdlMTXhRXKojb2JXAWxIIXv NdEfVzTvFCTaXDFfAJoqYIScIGLaPqI3DHViSNTlXO 6RKdQmMSVjRVY2BhxxOXAlKPNtby1UQTFqALDwAZA0LRGpIYFqBDDdYZvoCGHmRMY5YBJgVXGfWXBaCO 0TEuMvBAAkQFbwQlbmHCFuMOTcct4XJXQvYFXqMEQ1UMVdGJHbRAWzGCslQIEpROT4UGpaSJWfESYuHW 4TCrGrKJWxPOU2HlTkKCDfWLFrxh5DQGYgHZBmOBWv HiMmXHSeGWTlPVxsNQKvVIVcUGXtHDHuRNMoJE0UEvDcKWWqJGR6WBXhJGVxDKVxxa8KKBWhGSHkOPo7 QyTfDQChKCNoCGbyWBBtWKDtJVSqRSMeWNNoXS9LAsOkVPEpUiY3HTisSTLcVYCapu9RZDEuEWPwCObe IXHzCMKdCSYcMXuzJMAdRAQ5OEX9RXCwNYJkJQ2JVj HxTSMaIrVvWdHkUIFeGBCkeh5FRJHpDIUxYMUfTBDoVDVmXKXsKGmkSSMyBLC8RaCaJAUvQAJiLX8IHw JbMFLeDlA4NOCjHGUtTGItkp2ASCJvTGDpMuamOqWhLEYpZDQaGZrgWDHxSFZ8Nsg6BIJdHRLyRT0FXd QbNJChXtw1UVcyAFEfAXRbrx7LTUEnSXIzRQYyLnBu APIeOIGrTKqsZWDtYOI1QFx6WGNyFWNxCR8KBmAeFXSuIaxiGLrwOVQmHLRvyj5FCQFlFJUoTVPiMkLl DEVhQTAeFVhjZJTmEYNwNws9XCMkQOBiPJ8TFaVdRSCmGkI0RyNiKCAnKUUucg6VFESvXAQkBYU9XRVr NSWiXYDqOYhaBRIyXZVcUTQqLTVuNHUsCD9JGjSyZH DeWxL3YBGtKJLqXAVqtu2OIETrXOPnYkB8EEYzXJPgGWScSEneXKDwDSLiFyh6HGKyRAFkXR2IJyXhHF lcJBSFXkx9OCvbU9u5HHK5QC6LB1Xey8VlUiytBNSDRMpgXE5tviSsACPqUf8OR2mRNalwIKDhWMglQJ AhLAQpRjToQuJ8NEXiYoV1MUT5UanmED2nEMB3LQQ8 EZHyT9IqWoBpAcJzAyf5SxEiTHXzQwVnPfV3CzKeBJ1KOs7VEuD8AGJ7xBAwPg0EKbItZxwZPrPiAZ3L DQo= ID Date Data Source [id number] 03/22/2021 08:28:35 PM EDT [facility] Name Value Range Interpretation Code Description Data Arabella rce(s) Supporting Document(s) Progress Note [facility] OZWPIh9pJsVPMeRr31/ETIehYJCzv4UpKVbzQJq6LYygOUXwX3AfZJW6kA0ySVP7JHrCKuXeEmNzNFE3 lbm QnUqiMZwGlHCAxBcmEAbBjAXavVosrhYLhNZ9YeZZ4XFEyG93iETCqZFDvM2LkBXF6UFR+Fu4ALLMztP UsUO9PBemS1Ubaj+R8KZ4rQV4IqASeTS3oJHgrJyxVd8Cwwb0XRVVsqsFRDKLoMzpNmYn092q3XBghKy tcjmpcTT5qK8B+u9/+zMXVERx7wpKQ17Ilaf+vv4YR Z8M5+/orVk/z+Hpa/PVZUar5B62mYQA/vz3nW4ujl/mEw3V55c/rwQmTgWAnkROw/ujobBr/1Op00gMj YALXZbx28UYCXTxOICvIm4n/Kzvvs+zmEY8fOX1m9EknAULSsisR8sj3s9XmA2osJWB9rpGlGaS1DYkw 58KHLrQ4cgVeJrMz2CgWTOps3m544znLI+fvIRTUuB U1Lc+JpIM+1hxzr7c3cdSzpzVzIL7arioeFe4n5IUXD3QyA4uTrEiiqrgliR0HTS7tPqRA9Ps7kboykV ZgcK+x4stvtZb7N7mjthfDvKIiCe6i7sRD/D3XPtUgBCDwZzOAL3dT0QdhRpUlmd/s/Lu6siiMlqtDh6 7nmnQzIcYJa9ac/RLl++PKMjuEUjfwQdaMGy7ss0vo gRcvt9kjx0Qa1sfCx6fjrm+f31smua4P/OS4MxH9eBCpY+6UUxFiBVt6TFY7YvR1GyIlFkHVlG3q/[facility]NA[facility] [file] ID Date Data Source [id number] 03/22/2021 06:09:00 PM EDT [facility] TSYSORDER [id number] Name Value Range Interpretation Code Description Data Arabella rce(s) Supporting Document(s) URINE COLOR. [facility] URINE APPEARANCE CLEAR [facility] URINE GLUCOSE (UA) NEGATIVE mg/dL NEGATIVE [facility] URINE BILIRUBIN NEGATIVE NEGATIVE [facility] URINE KETONE 5(TRACE) mg/dL [facility]IFIC GRAV[facility],URINE 1.015 1.005-1.030 [facility] URINE BLOOD NEGATIVE NEGATIVE [facility] PH,URINE 7.5 5.0-9.0 [facility] URINE PROTEIN NEGATIVE mg/dL NEGATIVE [facility] UROBILINOGEN NORMAL(0.2-1) mg/dL 0-1 R [facility] URINE NITRATE NEGATIVE NEGATIVE [facility] URINE LEUKOCYTE ESTERASE NEGATIVE NEGATIVE [facility] ID Date Data Source [id number] 03/22/2021 05:30:00 PM EDT [facility] Name Value Range Interpretation Code Description Data Arabella rce(s) Supporting Document(s) COVID-19 NEGATIVE [facility] This lab was ordered by [facility] and reported by [facility] Laboratory. ID Date Data Source [id number] 03/22/2021 06:06:00 PM EDT [facility] TSYSORDER [id number] Name Value Range Interpretation Code Description Data Arabella rce(s) Supporting Document(s) COVID-19 NEGATIVE NEGATIVE [facility] Negative results should be treated as pr [...] are for the indentification of SARS-CoV-2 RNA. HkgLDHC-SlE-3 RNA is generally detectable in respiratorysamples during the actue phase of infection. ID Date Data Source [id number] 03/22/2021 04:58:00 PM EDT [facility] DATE OF EXAMINATION: 03/22/2021 14:46 EDT [...] Name Value Range Interpretation Code Description Data [facility](s) Supporting Document(s) ID Date Data Source [id number] 03/22/2021 03:33:00 PM EDT [facility] TSYSORDER [id number] Name Value Range Interpretation Code Description Data [facility] Document(s) LACTIC ACID 0.9 mmol/L 0.4-2.0 [facility] ID Date Data Source [id number] 03/22/2021 03:31:00 PM EDT [facility] TSYSORDER [id number] Name Value Range Interpretation Code Description Data [facility](s) Supporting Document(s) GLUCOSE 88 mg/dL 74-106 [facility] BLOOD UREA NITROGEN 11 mg/dL 7-18 [facility] ital CREATININE 0.71 mg/dL 0.6-1.0 [facility] SODIUM 139 mmol/L 136-145 [facility] POTASSIUM 4.2 mmol/L 3.5-5.1 [facility] CHLORIDE 105 mmol/L 98-107 [facility] CO2 23 mmol/L 21-32 [facility] CALCIUM 9.2 mg/dL 8.5-10.1 [facility] ANION GAP 11.0 mmol/L 5-12 [facility] GLOMERULAR FILTRATION RATE >90 mL/min [facility] GFR IS CALCULATED IN mL/min/1.73m2 JUDITH L FUNCTION: >90MILDLY DECREASED: 60-89MILDY TO MODERATELY DECREASED: 45-59 MODERATELY TO SEVERELY DECREASED: 30-44SEVERELY DECREASED: 15-29RENAL FAILURE: <15 AST 20 U/L 15-37 [facility] ALT 20 U/L 12-78 [facility] ALKALINE PHOSPHATASE 70 U/L 46-116 [facility] pital TOTAL BILIRUBIN 1.0 mg/dL 0.2-1.0 [facility] TOTAL PROTEIN 7.6 g/dl 6.4-8.2 [facility] ALBUMIN 3.4 gm/dL 3.4-5.0 [facility] ID Date Data Source [id number] 03/22/2021 03:31:00 PM EDT [facility] TSYSORDER [id number] Name Value Range Interpretation Code Description Data [facility] r[facility](s) Supporting Document(s) LIPASE 117 U/L 73-393 [facility] ID Date Data Source [id number] 03/22/2021 03:24:00 PM [facility] [id number] Name Value Range Interpretation Code Description Data [facility] rce(s) Supporting Document(s) HCG,SERUM NEGATIVE NEGATIVE [facility] False negative results may occur when th e levels of hCG arebelow the sensitivity level of the test. If isstill suspected, a first morning urine specimen should becollected 48hrs later.This test has a sensitivity of 10mIU/mL in serum [id number]/mL in urine. ID Date Data Source [id number] 03/22/2021 03:10:00 PM EDT [facility] l TSYSORDER [id number] Name Value Range Interpretation Code Description Data [facility] rce(s) Supporting Document(s) WHITE BLOOD COUNT 6.3 K/mm3 4.0-10.0 [facility]LOOD [facility] 3.90 M/mm3 4.00-5.50 L [facility] HEMOGLOBIN 10.2 gm/dL 12.0-16.0 L [facility] HEMATOCRIT 31.5 % 36.0-48.8 L [facility] MEAN CELL VOLUME 80.8 fl 80-96 [facility] MEAN CORPUSCULAR HEMOGLOBIN 26.2 pg 27.0-31.0 L [facility] MEAN CORPUSCULAR HGB CONC 32.4 g/dl 32.0-36.0 [facility] RED CELL DISTRIBUTION WIDTH 16.4 % 10.0-14.5 H [facility] PLATELET COUNT 146 K/mm3 172-450 L [facility] MEAN PLATELET VOLUME 12.1 fl 9.0-13.0 [facility] pital GRAN % 60.8 % 50-80.0 [facility] IG% 0.2 % 0.0-0.2 [facility] LYMPH % 30.7 % 25.0-50.0 [facility] MONO % 6.7 % 2.0-10.0 [facility] EOS % 1.0 % 0-5.0 [facility] BASO % 0.6 % 0.0-2.0 [facility] GRAN # 3.8 K/mm3 2.0-8.00 [facility] IG# 0.0 K/mm3 0.0-0.2 [facility] LYMPH # 1.9 K/mm3 1.0-5.0 [facility] MONO # 0.4 K/mm3 0.10-1.20 [facility] EOS # 0.1 K/mm3 0.0-0.5 [facility] BASO # 0.0 K/mm3 0.0-0.2 [facility] ID Date Data Source [id number] 03/19/2021 08:43:00 AM EDT [facility] DATE OF EXAMINATION: 03/19/2021 8:12 EDT [...] Data Source CT ABD/PEL NO CONTRAST - [id number] 03/19/2021 12:00:00 AM EDT eC W1 ([facility] [facility]) Name Value Range Interpretation Code Description Data Arabella rce(s) Supporting Document(s) CT ABD/PEL NO CONTRAST - 62587 eCW1 ([facility]) ID Date Data Source [id number] 03/10/2021 05:49:00 PM EDT [facility]) Name Value Range Interpretation Code Description Data Arabella rce(s) Supporting Document(s) Ferritin [Mass/volume] in Serum or Plasma 7 MEDENT ([facility]) ID Date Data Source [id number] 03/10/2021 05:49:00 PM EDT [facility] Name Value Range Interpretation Code Description Data Arabella rce(s) Supporting Document(s) Iron 38 MEDENT ([facility]) Iron binding capacity [Mass/volume] in Serum or Plasma 429 MEDENT ([facility]) Tibc % Saturation 9 MEDENT ([facility]) ID Date Data Source [id number] 03/10/2021 05:49:00 PM EDT [facility] Name Value Range Interpretation Code Description Data Arabella rce(s) Supporting Document(s) CPK-MB 1.3 MEDENT ([facility]) Thyroid Stimulating Hormone 27.184 0.360-3.740 MEDENT ([facility]) Free T4 0.4 MEDENT ([facility]) ID Date Data Source [id number] 03/10/2021 05:49:00 PM EDT [facility] Name Value Range Interpretation Code Description Data Arabella rce(s) Supporting Document(s) White Blood Count 6.9 MEDENT ([facility]) Red Blood Count 4.05 MEDENT ([facility]) Hematocrit 33.2 MEDENT ([facility]) Hemoglobin 10.4 MEDENT ([facility]) Platelets 360 MEDENT ([facility]) ID Date Data Source [id number] 03/10/2021 05:49:00 PM EDT MEDENT ([facility]) Name Value Range Interpretation Code Description Data Arabella rce(s) Supporting Document(s) Troponin Laboratory test result 0-60.4 ME DENT ([facility]) ID Date Data Source [id number] 03/10/2021 05:49:00 PM EDT MEDENT ([facility]) Name Value Range Interpretation Code Description Data Arabella rce(s) Supporting Document(s) Alanine aminotransferase [Enzymatic activity/volume] in Serum or Pl asma 20 MEDENT ([facility]) Albumin [Mass/volume] in Serum or Plasma 3.5 MEDENT ([facility]) Calcium [Mass/volume] in Serum or Plasma 8.7 MEDENT ([facility]) Carbon dioxide, total [Moles/volume] in Serum or Plasma 27 MEDENT ([facility]) Chloride [Moles/volume] in Serum or Plasma 104 MEDENT ([facility]) Potassium [Moles/volume] in Serum or Plasma 4.2 MEDENT ([facility]) Protein [Mass/volume] in Serum or Plasma 7.8 MEDENT ([facility]) Alkaline phosphatase [Enzymatic activity/volume] in Serum or Plasma 8 0 MEDENT ([facility]) Sodium 138 MEDENT ([facility]) Aspartate aminotransferase [Enzymatic activity/volume] in Serum or Plasma 15 MEDENT ([facility]) Urea nitrogen [Mass/volume] in Serum or Plasma 11 MEDENT ([facility]) Creatinine For GFR 0.85 MEDENT ([facility]) Glucose 89 MEDENT ([facility]) ID Date Data Source [id number] 03/10/2021 04:36:00 PM EDT [facility] rce(s) Supporting Document(s) ID Date Data Source [id number] 03/10/2021 04:50:00 PM EDT [facility] l Name Value Range Interpretation Code Description Data Arabella rce(s) Supporting Document(s) FERRITIN 7 ng/mL 8-252 L [facility] ID Date Data Source [id number] 03/10/2021 04:50:00 PM EDT [facility] l Name Value Range Interpretation Code Description Data Arabella rce(s) Supporting Document(s) IRON 38 ug/dL 50-170 L [facility] TIBC 429 ug/dL 250-450 [facility] % SATURATION 9 % 20-50 L [facility] ID Date Data Source [id number] 03/10/2021 04:50:00 PM [facility] Name Value Range Interpretation Code Description Data Arabella rce(s) Supporting Document(s) TROPONIN-HIGH SENSITIVITY < 4.0 ng/L 0-60.4 [facility] ID Date Data Source [id number] 03/10/2021 04:50:00 PM EDT [facility] Name Value Range Interpretation Code Description Data Arabella rce(s) Supporting Document(s) CKMB 1.3 ng/ml 0.0-3.6 [facility] ID Date Data Source [id number] 03/10/2021 04:50:00 PM EDT [facility] l Name Value Range Interpretation Code Description Data Arabella rce(s) Supporting Document(s) GLUCOSE 89 mg/dL 74-106 [facility] BLOOD UREA NITROGEN 11 mg/dL 7-18 [facility] ital CREATININE 0.85 mg/dL 0.6-1.0 [facility] SODIUM 138 mmol/L 136-145 [facility] POTASSIUM 4.2 mmol/L 3.5-5.1 [facility] CHLORIDE 104 mmol/L 98-107 [facility] CO2 27 mmol/L 21-32 [facility] CALCIUM 8.7 mg/dL 8.5-10.1 [facility] ANION GAP 7.0 mmol/L 5-12 [facility] GLOMERULAR FILTRATION RATE 75 mL/min [facility] GFR IS CALCULATED IN mL/min/1.73m2 JUDITH L FUNCTION: >90MILDLY DECREASED: 60-89MILDY TO MODERATELY DECREASED: 45-59 MODERATELY TO SEVERELY DECREASED: 30-44SEVERELY DECREASED: 15-29RENAL FAILURE: <15 AST 15 U/L 15-37 [facility] ALT 20 U/L 12-78 [facility] ALKALINE PHOSPHATASE 80 U/L 46-116 [facility] pital TOTAL BILIRUBIN 0.5 mg/dL 0.2-1.0 [facility] TOTAL PROTEIN 7.8 g/dl 6.4-8.2 [facility] ALBUMIN 3.5 gm/dL 3.4-5.0 [facility] ID Date Data Source [id number] 03/10/2021 04:50:00 PM EDT [facility] l Name Value Range Interpretation Code Description Data Arabella rce(s) Supporting Document(s) FREE T4 0.4 ng/dL 0.76-1.46 L [facility] ID Date Data Source [id number] 03/10/2021 04:50:00 PM EDT [facility] l Name Value Range Interpretation Code Description Data Arabella rce(s) Supporting Document(s) TSH 27.184 uIU/mL 0.360-3.740 H [facility] ID Date Data Source [id number] 03/10/2021 04:22:00 PM EDT [facility] l Name Value Range Interpretation Code Description Data Arabella rce(s) Supporting Document(s) WHITE BLOOD COUNT 6.9 K/mm3 4.0-10.0 [facility] RED BLOOD COUNT 4.05 M/mm3 4.00-5.50 [facility] l HEMOGLOBIN 10.4 gm/dL 12.0-16.0 L [facility] HEMATOCRIT 33.2 % 36.0-48.8 L [facility] MEAN CELL VOLUME 82.0 fl 80-96 [facility] MEAN CORPUSCULAR HEMOGLOBIN 25.7 pg 27.0-31.0 L [facility] MEAN CORPUSCULAR HGB CONC 31.3 g/dl 32.0-36.0 L [facility] RED CELL DISTRIBUTION WIDTH 16.2 % 10.0-14.5 H [facility] PLATELET COUNT 360 K/mm3 172-450 [facility] MEAN PLATELET VOLUME 10.3 fl 9.0-13.0 [facility] pital GRAN % 55.3 % 50-80.0 [facility] IG% 0.1 % 0.0-0.2 [facility] LYMPH % 34.2 % 25.0-50.0 [facility] MONO % 7.6 % 2.0-10.0 [facility] EOS % 2.2 % 0-5.0 [facility] BASO % 0.6 % 0.0-2.0 [facility] GRAN # 3.8 K/mm3 2.0-8.00 [facility] IG# 0.0 K/mm3 0.0-0.2 [facility] LYMPH # 2.4 K/mm3 1.0-5.0 [facility] MONO # 0.5 K/mm3 0.10-1.20 [facility] EOS # 0.2 K/mm3 0.0-0.5 [facility] BASO # 0.0 K/mm3 0.0-0.2 [facility] ID Date Data Source [id number] 03/10/2021 04:59:00 PM EDT [facility] l FAX [phone] Name Value Range Interpretation Code Description Data Arabella rce(s) Supporting Document(s) LITHIUM < 0.20 mmol/L 0.6-1.20 L [facility] ID Date Data Source FERRITIN 03/10/2021 12:00:00 AM EDT eCW1 ([facility][note 2]) Name Value Range Interpretation Code Description Data Arabella rce(s) Supporting Document(s) 7 4-416 FERRITIN eC1 ([facility]) ID Date Data Source IRON PROFILE 03/10/2021 12:00:00 AM EDT eCW1 ([facility] [place][note 2]) Name Value Range Interpretation Code Description Data Arabella rce(s) Supporting Document(s) 429 250-450 TIBC eCW1 ([facility]) 38 50-170 IRON eCW1 ([facility]) 9 20-50 % SATURATION eCW1 ([facility]) ID Date Data Source CBC [id number]/DIFF 03/10/2021 12:00:00 AM EDT eCW1 ([facility] [place][note 2]) Name Value Range Interpretation Code Description Data Arabella rce(s) Supporting Document(s) 10.4 12.0-16.0 HEMOGLOBIN eCW1 ([facility]) 4.05 4.00-5.50 RED BLOOD COUNT eCW1 ([facility]) 6.9 4.0-10.0 WHITE BLOOD COUNT eCW1 ([facility]) 25.7 27.0-31.0 MEAN CORPUSCULAR HEMOGLOB IN eCW1 ([facility]) 82.0 80-96 MEAN CELL VOLUME eCW1 ([facility] [place][note 2]) 33.2 36.0-48.8 HEMATOCRIT eCW1 ([facility]) 31.3 32.0-36.0 MEAN CORPUSCULAR HGB CONC eCW1 ([facility]) 16.2 10.0-14.5 RED CELL DISTRIBUTION WID TH eCW1 ([facility]) 360 172-450 PLATELET COUNT eCW1 ([facility]) 34.2 25.0-50.0 LYMPH % eCW1 ([facility]) 7.6 2.0-10.0 MONO % eCW1 ([facility]) 10.3 9.0-13.0 MEAN PLATELET VOLUME eCW1 ([facility]) 55.3 50-80.0 GRAN % eCW1 ([facility]) 0.6 0.0-2.0 BASO % eCW1 ([facility]) 3.8 2.0-8.00 GRAN # eCW1 ([facility]) 2.2 0-5.0 EOS % eCW1 ([facility]) 0.2 0.0-0.5 EOS # eCW1 ([facility]) 2.4 1.0-5.0 LYMPH # eCW1 ([facility]) 0.5 0.10-1.20 MONO # eCW1 ([facility]) 0.0 0.0-0.2 BASO # eCW1 ([facility]) ID Date Data Source CHEST 2 VIEWS 03/10/2021 12:00:00 AM EDT eCW1 ([facility] [place][note 2]) Name Value Range Interpretation Code Description Data Arabella rce(s) Supporting Document(s) CHEST 2 VIEWS eCW1 ([facility]) ID Date Data Source FREE T4 03/10/2021 12:00:00 AM EDT eCW1 ([facility] [place][note 2]) Name Value Range Interpretation Code Description Data Arabella rce(s) Supporting Document(s) 0.4 0.76-1.46 FREE T4 eCW1 ([facility]) ID Date Data Source TSH 03/10/2021 12:00:00 AM EDT eCW1 ([facility] [place][note 2]) Name Value Range Interpretation Code Description Data Arabella rce(s) Supporting Document(s) 27.184 0.360-3.740 TSH eCW1 ([facility]) ID Date Data Source CKMB 03/10/2021 12:00:00 AM EDT eCW1 ([facility] [place][note 2]) Name Value Range Interpretation Code Description Data Arabella rce(s) Supporting Document(s) 1.3 0.0-3.6 CKMB eCW1 ([facility]) ID Date Data Source [id number] 01/30/2021 08:06:00 AM EDT [facility] Name Value Range Interpretation Code Description Data Arabella rce(s) Supporting Document(s) Folate (Folic Acid), Serum 8.6 ng/mL >3.0 [facility] A serum folate concentration of less simi n 3.1 ng/mL isconsidered to represent clinical deficiency. ID Date Data Source [id number] 01/30/2021 08:06:00 AM EDT [facility] Name Value Range Interpretation Code Description Data Arabella rce(s) Supporting Document(s) Vitamin B12 351 pg/mL [phone] [facility] ID Date Data Source [id number] 01/30/2021 08:06:00 AM EDT [facility] Name Value Range Interpretation Code Description Data Arabella rce(s) Supporting Document(s) FOLATE (FOLIC ACID), SERUM 8.6 ng/mL >3.0 [facility] A serum folate concentration of less simi n 3.1 ng/mL isconsidered to represent clinical deficiency. ID Date Data Source [id number] 01/30/2021 08:06:00 AM EDT [facility] l Name Value Range Interpretation Code Description Data Arabella rce(s) Supporting Document(s) VITAMIN B12 351 pg/mL [phone] [facility] Performed at: RN - [facility] [place] [id number] Director: Sharmaine Siddiqui MD, Phone: [phone] ID Date Data Source [id number] 01/29/2021 03:33:00 PM EDT [facility] l Name Value Range Interpretation Code Description Data Arabella rce(s) Supporting Document(s) IRON 31 ug/dL 50-170 [facility] TIBC 462 ug/dL 250-450 H [facility] % SATURATION 7 % 20-50 [facility] ID Date Data Source [id number] 01/15/2021 01:59:00 PM EDT [facility] [...] rce(s) Supporting Document(s) ID Date Data Source [id number] 01/15/2021 12:37:00 PM EDT [facility] DATE OF EXAMINATION: 01/15/2021 11:42 EDT HISTORY: Trauma pain TECHNIQUE: 4 views of the Right Finger were obtained. FINDINGS: There is no fracture, dislocation or arthritic changes. Bones and soft tissuesappear normal. IMPRESSION: Unremarkable study of the finger. Electronically signed in [id number] by: Khalida Stafford M.D. 01/15/2021 12:09 EDT Name Value Range Interpretation Code Description Data [facility] Document(s) ID Date Data Source [id number] 01/15/2021 11:52:00 AM EDT [facility] Name Value Range Interpretation Code Description Data [facility] rce(s) Supporting Document(s) WHITE BLOOD COUNT 6.3 K/mm3 4.0-10.0 [facility] al RED BLOOD COUNT 3.71 M/mm3 4.00-5.50 L [facility] HEMOGLOBIN 9.7 gm/dL 12.0-16.0 L [facility] HEMATOCRIT 30.5 % 36.0-48.8 L [facility] MEAN CELL VOLUME 82.2 fl 80-96 [facility] MEAN CORPUSCULAR HEMOGLOBIN 26.1 pg 27.0-31.0 L [facility] MEAN CORPUSCULAR HGB CONC 31.8 g/dl 32.0-36.0 L [facility] RED CELL DISTRIBUTION WIDTH 13.7 % 10.0-14.5 [facility] PLATELET COUNT 255 K/mm3 172-450 [facility] MEAN PLATELET VOLUME 10.9 fl 9.0-13.0 [facility] pital GRAN % 53.2 % 50-80.0 [facility] IG% 0.0 % 0.0-0.2 [facility] LYMPH % 35.0 % 25.0-50.0 [facility] MONO % 9.1 % 2.0-10.0 [facility] EOS % 2.1 % 0-5.0 [facility] BASO % 0.6 % 0.0-2.0 [facility] GRAN # 3.4 K/mm3 2.0-8.00 [facility] IG# 0.0 K/mm3 0.0-0.2 [facility] LYMPH # 2.2 K/mm3 1.0-5.0 [facility] MONO # 0.6 K/mm3 0.10-1.20 [facility] EOS # 0.1 K/mm3 0.0-0.5 [facility] BASO # 0.0 K/mm3 0.0-0.2 [facility] ID Date Data Source [id number] [facility] Interpretation Code Description Data Arabella rce(s) Supporting Document(s) ERYTHROCYTE SEDIMENTATION RATE 70 mm/hr 0-20 H [facility] ID Date Data Source [id number] 01/15/2021 12:10:00 PM [facility] l Name Value Range Interpretation Code Description Data Arabella rce(s) Supporting Document(s) FREE T4 0.5 ng/dL 0.76-1.46 [facility] ID Date Data Source [id number] 01/15/2021 [facility]:10[facility] Name Value Range Interpretation Code Description Data Arabella rce(s) Supporting Document(s) TSH 19.669 uIU/mL 0.360-3.740 H [facility] ID Date Data Source [id number] 01/15/2021 11:59:00 AM T [facility] l Name Value Range Interpretation Code Description Data Arabella rce(s) Supporting Document(s) GLUCOSE 72 mg/dL 74-106 [facility] BLOOD UREA NITROGEN 14 mg/dL 7-18 [facility] ital CREATININE 0.83 mg/dL 0.6-1.0 [facility] SODIUM 138 mmol/L 136-145 [facility] POTASSIUM 4.5 mmol/L 3.5-5.1 [facility] CHLORIDE 104 mmol/L 98-107 [facility] CO2 27 mmol/L 21-32 [facility] CALCIUM 8.8 mg/dL 8.5-10.1 [facility] ANION GAP 7.0 mmol/L 5-12 [facility] GLOMERULAR FILTRATION RATE 77 mL/min [facility] GFR IS CALCULATED IN mL/min/1.73m2 JUDITH L FUNCTION: >90MILDLY DECREASED: 60-89MILDY TO MODERATELY DECREASED: 45-59 MODERATELY TO SEVERELY DECREASED: 30-44SEVERELY DECREASED: 15-29RENAL FAILURE: <15 AST 16 U/L 15-37 [facility] ALT 23 U/L 12-78 [facility] ALKALINE PHOSPHATASE 76 U/L 46-116 [facility] pital TOTAL BILIRUBIN 0.5 mg/dL 0.2-1.0 [facility] TOTAL PROTEIN 6.9 g/dl 6.4-8.2 [facility] ALBUMIN 3.5 gm/dL 3.4-5.0 [facility] ID Date Data Source Urinalysis, Routine 01/15/2021 12:00:00 AM EDT eCW1 ([facility] [place][note 2]) Name Value Range Interpretation Code Description Data Arabella rce(s) Supporting Document(s) Color of Urine Ellen Urine-Color eCW1 ([facility]) Microscopic Examination eCW1 ( [facility]) Specific gravity of Urine 1.025 Specific G ravity eCW1 ([facility]) Appearance of Urine Clear Appearance eCW1 ([facility]) pH of Urine by Test strip 5 pH eCW1 ([facility]) Glucose [Presence] in Urine NEG Glucose eCW1 ([facility]) Protein [Presence] in Urine by Test strip NEG Protein eCW1 ([facility]) Bilirubin.total [Presence] in Urine by Test strip NEG Bilirubin eCW1 ([facility]) Hemoglobin [Presence] in Urine by Test strip NEG Occult Blood eCW1 ([facility]) Nitrite [Presence] in Urine by Test strip NEG Nitrite, Urine eCW1 ([facility]) Urobilinogen [Mass/volume] in Urine by Test strip NEG Urobilinogen,Semi-Qn eCW1 ([facility]) Ketones [Presence] in Urine by Test strip NEG Ketones eCW1 ([facility]) Urinalysis Gross Exam eCW1 ([facility]) Leukocyte esterase [Presence] in Urine by Test strip NEG WBC Esterase eCW1 ([facility]) Procedure Social History Code Duration Value Status Description Data Source(s ) Smoking 05/05/2021 12:00:00 AM EDT Current Smoker completed Curre nt Smoker eCW1 ([facility]) Smoking 05/05/2021 12:00:00 AM EDT Current Smoker completed Curre nt Smoker eCW1 ([facility]) Smoking 05/05/2021 12:00:00 AM EDT Current Smoker completed Curre nt Smoker eCW1 ([facility]) Smoking 05/05/2021 12:00:00 AM EDT Current Smoker completed Curre nt Smoker eCW1 ([facility]) Smoking 05/05/2021 12:00:00 AM EDT Current Smoker completed Curre nt Smoker eCW1 ([facility]) Alcohol intake 05/02/2021 12:00:00 AM EDT Ex-drinker (finding) comp leted Ex- drinker (finding) [facility] Tobacco use and exposure 05/02/2021 12:00:00 AM EDT Never used co mpleted Never used [facility] Smoking 05/02/2021 12:00:00 AM EDT Former smoker completed Former smoker [facility] Alcohol intake 04/25/2021 12:00:00 AM EDT Ex-drinker (finding) comp leted Ex- drinker (finding) [facility] Smoking 03/10/2021 12:00:00 AM EDT Current Smoker completed Curre nt Smoker eCW1 ([facility]) Smoking 03/10/2021 12:00:00 AM EDT Current Smoker completed Curre nt Smoker eCW1 ([facility]) Smoking 03/10/2021 12:00:00 AM EDT Current Smoker completed Curre nt Smoker eCW1 ([facility]) Smoking 03/10/2021 12:00:00 AM EDT Current Smoker completed Curre nt Smoker eCW1 ([facility]) Smoking 03/10/2021 12:00:00 AM EDT Current Smoker completed Curre nt Smoker eCW1 ([facility]) Smoking 03/10/2021 12:00:00 AM EDT Current Smoker completed Curre nt Smoker eCW1 ([facility]) Smoking 02/21/2021 12:00:00 AM EDT Current Smoker completed Curre nt Smoker eCW1 ([facility]) Smoking 02/13/2021 12:00:00 AM EDT Current Smoker completed Curre nt Smoker eCW1 ([facility]) Smoking 01/31/2021 12:00:00 AM EDT Current Smoker completed Curre nt Smoker eCW1 ([facility]) Smoking 01/29/2021 12:00:00 AM EDT Current Smoker completed Curre nt Smoker eCW1 ([facility]) Smoking 01/29/2021 12:00:00 AM EDT Current Smoker completed Curre nt Smoker eCW1 ([facility]) Smoking 01/29/2021 12:00:00 AM EDT Current Smoker completed Curre nt Smoker eCW1 ([facility]) Smoking 01/15/2021 12:00:00 AM EDT Current Smoker completed Curre nt Smoker eCW1 ([facility]) Smoking 01/15/2021 12:00:00 AM EDT Current Smoker completed Curre nt Smoker eCW1 ([facility]) Smoking 01/15/2021 12:00:00 AM EDT Current Smoker completed Curre nt Smoker eCW1 ([facility]) Smoking 01/15/2021 12:00:00 AM EDT Current Smoker completed Curre nt Smoker eCW1 ([facility]) Smoking 01/15/2021 12:00:00 AM EDT Current Smoker completed Curre nt Smoker eCW1 ([facility]) 03/20/2021 12:00:00 AM EDT Smoker completed Smoker [facility] 03/20/2021 12:00:00 AM EDT Current smoker completed Curre nt smoker [facility] Vital Signs ID Date Data Source UNK Name Value Range Interpretation Code Description Data Source(s) Body temperature 36.22 [facility] 36[facility]22 [facility] Respiratory rate 18 /min 18 /min Health system Oxygen saturation in Arterial blood by Pulse oximetry 99 % 99 % [facility] Systolic blood pressure 107 mm[Hg] 107 mm[Hg] [facility] Diastolic blood pressure 63 mm[Hg] 63 mm[Hg] [facility] Heart rate 50 /min 50 /min [facility] Body mass index (BMI) [Ratio] 25.47 kg/m2 25.47 kg/m2 [facility] Body height 174 cm 174 cm [facility] Body weight 77.111 kg 77.111 kg [facility] Systolic blood pressure 104 mm[Hg] 104 mm[Hg] [facility] Diastolic blood pressure 70 mm[Hg] 70 mm[Hg] [facility] Heart rate 46 /min 46 /min [facility] Body temperature 36.17 [facility] 36.17 [facility] Respiratory rate 16 /min 16 /min Health system Oxygen saturation in Arterial blood by Pulse oximetry 99 % 99 % [facility] Body height 172 cm 172 cm [facility] Body weight 80.287 kg 80.287 kg [facility] Body mass index (BMI) [Ratio] 27.14 kg/m2 27.14 kg/m2 [facility] Systolic blood pressure 92 mm[Hg] 92 mm[Hg] [facility] Diastolic blood pressure 59 mm[Hg] 59 mm[Hg] [facility] Heart rate 64 /min 64 /min [facility] Respiratory rate 16 /min 16 /min Health system Oxygen saturation in Arterial blood by Pulse oximetry 97 % 97 % [facility] Body temperature 36.78 [facility] 36.78 [facility] Body height 172 cm 172 cm [facility] Body weight 82 kg 82 kg [facility] Body mass index (BMI) [Ratio] 27.72 kg/m2 27.72 kg/m2 [facility] Diastolic blood pressure 59 mm[Hg] 59 mm[Hg] DAVID ([facility]) Body height 69 [in_i] 69 [in_i] DAVID ([facility]) Body mass index (BMI) [Ratio] 26.5 kg/m2 26.5 k g/m2 DAVID ([facility]) Systolic blood pressure 97 mm[Hg] 97 mm[Hg] A THENA ([facility]) Body weight 179.2 [lb_av] 179.2 [lb_av] DAVID ([facility]) Diastolic blood pressure 59 mm[Hg] 59 mm[Hg] DAVID ([facility]) Body height 69 [in_i] 69 [in_i] DAVID ([facility]) Body mass index (BMI) [Ratio] 26.5 kg/m2 26.5 k g/m2 DAVID ([facility]) Systolic blood pressure 97 mm[Hg] 97 mm[Hg] A THENA ([facility]) Body weight 179.2 [lb_av] 179.2 [lb_av] DAVID ([facility]) Body height 68 [in_i] 68 [in_i] eCW1 ([facility] [place] 2[place] Body weight 179.6 [lb_av] 179.6 [lb_av] eCW1 ([facility]) Body mass index (BMI) [Ratio] 27.31 kg/m2 27.31 kg/m2 eCW1 ([facility]) Body temperature 98.8 [degF] 98.8 [degF] eCW1 ( [facility]) Heart rate 86 /min 86 /min eCW1 ([facility]) Respiratory rate 18 /min 18 /min eCW1 ([facility]) Oxygen saturation in Arterial blood by Pulse oximetry 100 % 100 % eCW1 ([facility]) Body height 68 [in_i] 68 [in_i] eCW1 ([facility] [place]note 2[place] Body weight 180.6 [lb_av] 180.6 [lb_av] eCW1 ([facility]) Body mass index (BMI) [Ratio] 27.46 kg/m2 27.46 kg/m2 eCW1 ([facility]) Body temperature 98.2 [degF] 98.2 [degF] eCW1 ( [facility]) Heart rate 92 /min 92 /min eCW1 ([facility]) Respiratory rate 18 /min 18 /min eCW1 ([facility]) Oxygen saturation in Arterial blood by Pulse oximetry 100 % 100 % eCW1 ([facility]) Body height 68 [in_i] 68 [in_i] eCW1 ([facility] [place][note 2[place] Body weight 182.4 [lb_av] 182.4 [lb_av] eCW1 ([facility]) Body mass index (BMI) [Ratio] 27.73 kg/m2 27.73 kg/m2 eCW1 ([facility]) Body temperature 98.4 [degF] 98.4 [degF] eCW1 ( [facility]) Heart rate 78 /min 78 /min eCW1 ([facility]) Respiratory rate 18 /min 18 /min eCW1 ([facility]) Oxygen saturation in Arterial blood by Pulse oximetry 98 % 98 % eCW1 ([facility]) ID Date Data Source [id number] 03/22/2021 08:28:35 PM EDT [facility] Name Value Range Interpretation Code Description Data Source(s) TRANSFER FROM [facility] Patient Treatment Plan of Care Planned Activity Planned Date Details Description Data Source (s) lamotrigine 25 MG Oral Tablet 05/21/2021 12:00:00 AM EDT eCW1 ([facility]) lamotrigine 25 MG Oral Tablet 05/21/2021 12:00:00 AM EDT eCW1 ([facility]) Acetaminophen 325 MG / Hydrocodone Bitartrate 7.5 MG O ral Tablet 05/04/2021 12:00:00 AM EDT [facility] Misoprostol 0.2 MG Oral Tablet 05/04/2021 12:00:00 AM EDT [facility] Methylcellulose 500 MG Oral Tablet 03/27/2021 12:00:00 AM EDT [facility] Lactobacillus rhamnosus GG [id number] UNT Oral Capsul e 03/27/2021 12:00:00 AM EDT [facility] brexpiprazole 2 MG Oral Tablet [Rexulti] 03/19/2021 12:00:00 AM EDT eCW1 ([facility]) brexpiprazole 2 MG Oral Tablet [Rexulti] 03/19/2021 12:00:00 AM EDT eCW1 ([facility]) brexpiprazole 2 MG Oral Tablet [Rexulti] 03/19/2021 12:00:00 AM EDT eCW1 ([facility]) brexpiprazole 2 MG Oral Tablet [Rexulti] 03/19/2021 12:00:00 AM EDT eCW1 ([facility]) brexpiprazole 2 MG Oral Tablet [Rexulti] 03/19/2021 12:00:00 AM EDT eCW1 ([facility]) brexpiprazole 1 MG Oral Tablet [Rexulti] 03/19/2021 12:00:00 AM EDT eCW1 ([facility]) brexpiprazole 1 MG Oral Tablet [Rexulti] 03/19/2021 12:00:00 AM EDT eCW1 ([facility]) brexpiprazole 1 MG Oral Tablet [Rexulti] 03/19/2021 12:00:00 AM EDT eCW1 ([facility]) brexpiprazole 1 MG Oral Tablet [Rexulti] 03/19/2021 12:00:00 AM EDT eCW1 ([facility]) Prazosin 1 MG Oral Capsule 02/13/2021 12:00:00 AM EDT eCW1 ([facility]) Prazosin 1 MG Oral Capsule 02/13/2021 12:00:00 AM EDT eCW1 ([facility]) Pierron Carbonate 300 MG Oral Capsule 02/13/2021 12:00:00 AM EDT eCW1 ([facility]) Prazosin 1 MG Oral Capsule 02/13/2021 12:00:00 AM EDT eCW1 ([facility]) Levothyroxine Sodium 0.025 MG Oral Tablet 01/29/2021 12:00:00 AM ED T eCW1 ([facility]) 0.3 ML Epinephrine 1 MG/ML Auto-Injector [Epipen] 01/29/2021 12: 00:00 AM EDT eCW1 ([facility]) Levothyroxine Sodium 0.025 MG Oral Tablet 01/29/2021 12:00:00 AM ED T eCW1 ([facility]) 0.3 ML Epinephrine 1 MG/ML Auto-Injector [Epipen] 01/29/2021 12: 00:00 AM EDT eCW1 ([facility]) Levothyroxine Sodium 0.025 MG Oral Tablet 01/29/2021 12:00:00 AM ED T eCW1 ([facility]) 0.3 ML Epinephrine 1 MG/ML Auto-Injector [Epipen] 01/29/2021 12: 00:00 AM EDT eCW1 ([facility]) Misoprostol 0.2 MG Oral Tablet 08/04/2019 12:00:00 AM [facility] ferrous sulfate 325 MG Oral Tablet [facility] gabapentin 600 MG Oral Tablet [facility] quetiapine 25 MG Oral Tablet [Seroquel] DAVID ([facility]) Mirtazapine 15 MG Oral Tablet [Remeron] DAVID ([facility]) OneTouch Delica Lancets ATHE NA ([facility]) One Touch II Test strips ATH TENZIN ([facility]) Pierron Carbonate 300 MG Oral Capsule DAVID ([facility]) Hair, Skin and Nails Advanced DAVID ([facility]) Biotin 10 MG Oral Tablet ATH TENZIN ([facility]) quetiapine 25 MG Oral Tablet [Seroquel] DAVID ([facility]) Mirtazapine 15 MG Oral Tablet [Remeron] DAVID ([facility]) OneTouch Delica Lancets ATHE NA ([facility]) One Touch II Test strips ATH TENZIN ([facility]) Pierron Carbonate 300 MG Oral Capsule DAVID ([facility]) Hair, Skin and Nails Advanced DAVID ([facility]) Biotin 10 MG Oral Tablet ATH TENZIN ([facility])
[2021-06-20] MEDS ORDERED: OXYCODONE/APAP 5MG/325MG(BULK FOR ED) 1 TABLET PO ONE (22:10)
[2021-06-20 22:39] VITALS: BP 110/70
[2021-06-20] MEDS ORDERED: PANT40TA29 PO (22:46)
[2021-06-20] MEDS ORDERED: PERC5TAB12 PO (22:48)
--- NOTE | 2021-06-24 19:47 | ED PDOC ---
Post-Departure Follow-Up radiology rpeor tfaxed to Ade Knight MD Jun 24, 2021 19:47
== END 2021-06-20 22:59 | disposition home or self-care (01) ==
LOC: M ED 17:09
DX: G89.18 Other acute postprocedural pain (principal); R10.9 Unspecified abdominal pain; Z93.1 Gastrostomy status; Z90.49 Acquired absence of other specified parts of digestive tract; Z98.84 Bariatric surgery status; F19.10 Other psychoactive substance abuse, uncomplicated; Z88.8 Allergy status to other drugs, medicaments and biological substances; Z91.048 Other nonmedicinal substance allergy status; Z90.710 Acquired absence of both cervix and uterus; Z91.030 Bee allergy status; Z79.899 Other long term (current) drug therapy
CPT/HCPCS: 74177; 80047; 80076; 83690; 85025; 93041; 96374; 96375; 99284; J2270; J2405; Q9967

== ENCOUNTER 2021-06-30 22:13 | Emergency (ER) | payer MEDICARE, MEDICAID ==
[~2021-06-30] VITALS: Ht 172.7 cm; Wt 81.8 kg
[2021-06-30 22:14] VITALS: BP 119/69
--- OUTSIDE RECORDS SUMMARY | 2021-06-30 22:22 | CCD | Continuity of Care Document ---
Author Author [employer] Organization Unknown Address Unknown Phone Unavailable Care Team Providers Care Farm Operations Manager Name Role Phone Jose Angel Fleming Unavailable Sebastian Lowry Unavailable [facility] Unavailable Unavailable Unavailable Dawit, Arlene Unavailable Unavailable Justine Ferrer Unavailable Problems Name Dates Details Encounter for surgi aleks aftercare following surgery on the digestive system (Z48.815) 17-Jun-2021 Status: Active Medications Name Dates Details Docusate Sodium 100 MG Jose Angel Fleming Active Levothyroxine Sodium 125 MCG Jose Angel Fleming* Start : 23-Jun-2021 Active TiZANidine HCl 4 MG As needed for muscle spasmsMax daily dose 3 tabs Jose Angel Fleming* Start : 23-Jun-2021 Active Rexulti 1 MG Jose Angel Fleming* Start : 23-Jun-2021 Active oxyCODONE-Acetaminophen 5-325 MG As needed for severe pain (7-10)Max daily dose 4 tabs Jose Angel Fleming* Start : 23-Jun-2021 Active Carafate 1 GM Jose Angel Fleming* Start : 23-Jun-2021 Active Acetaminophen Extra Strength 500 MG As needed for painMax daily dose 3000 mg Jose Angel Felming* Start : 23-Jun-2021 Active lamoTRIgine 25 MG Jose Angel Fleming* Start : 23-Jun-2021 Active Multivitamin Adults Jose Angel Fleming* Start : 23-Jun-2021 Active Mirtazapine 15 MG Jose Angel Fleming* Start : 23-Jun-2021 Active Venlafaxine HCl ER 150 MG Jose Angel Fleming* Start : 23-Jun-2021 Active Protonix 40 MG Jose Angel Fleming* Start : 23-Jun-2021 Active Melatonin 10 MG Jose Angel Fleming* Start : 23-Jun-2021 Active Prazosin HCl 1 MG Jose Angel Fleming* Start : 23-Jun-2021 Active Allergies and Adverse Reactions Name Dates Details amitriptyline (Allergy) Onset: 2020 Status: Active Maxalt (rizatriptan) (Allergy) Onset: 23-Jun-2021 Status: Active bee venom (honey bee) (Allergy) Onset: 23-Jun-2021 Status: Active Seasonale (91) (Levonorgestrel-et hinyl Estrad) (Allergy) Onset: 23-Jun-2021 Status: Active Results Date Description Value Details No Known Results Plan of Care Name Dates Details Instructions Diet:Bariatric, tube feedings via j tube 7 x dayTwo Aleks HN 3.5 cans QD x 1 month (120mL per feeding) Ins truction Type: Nutrition education Payers * Medicare - [facility]
--- OUTSIDE RECORDS SUMMARY | 2021-06-30 22:22 | CCD | Continuity of Care Document ---
Author Author [facility] [employer] Organization Unknown Address Unknown Phone Unavailable Care Team Providers Care Nurse Practitioner Per Diem Name Role Phone Jose Angel Fleming Unavailable Sebastian Lowry Unavailable [facility] Unavailable Unavailable Unavailable Dawit, Arlene Unavailable Unavailable Justine Ferrer Unavailable Problems Name Dates Details Encounter for surgi aleks aftercare following surgery on the digestive system (Z48.815) 17-Jun-2021 Status: Active Medications Name Dates Details lamoTRIgine 25 MG Jose Angel Fleming Active Levothyroxine Sodium [...] painMax daily dose 3000 mg Jose Angel Fleming* Start : 23-Jun-2021 Active [...] Type: Nutrition education Payers * Medicare - [facility]
--- OUTSIDE RECORDS SUMMARY | 2021-06-30 22:22 | CCD | Continuity of Care Document ---
Author Author [employer] Organization Unknown Address Unknown Phone Unavailable Care Team Providers Care Counseling Services Director Name Role Phone Jose Angel Fleming Unavailable Sebastian Lowry Unavailable [facility] Unavailable [phone] Unavailable Unavailable Dawit, Arlene Unavailable Unavailable Justine [...] Type: Nutrition education Payers * Medicare - [facility]
--- OUTSIDE RECORDS SUMMARY | 2021-06-30 22:22 | CCD | Continuity of Care Document ---
Author Author [employer] Organization Unknown Address Unknown Phone Unavailable Care Team Providers Care Embedded Software Programmer Name Role Phone Jose Angel Fleming Unavailable Sebastian Lowry Unavailable [facility] Unavailable [phone] Unavailable Unavailable Dawit, Arlene Unavailable Unavailable Justine [...] Type: Nutrition education Payers * Medicare - [facility]
--- OUTSIDE RECORDS SUMMARY | 2021-06-30 22:22 | CCD | Continuity of Care Document ---
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) 23-Jun-2021 Status: Active Personal history of nicotine dependence (Z87.891) 23-Jun-2021 Status: Active Hypothyroidism, uns pecified (E03.9) 23-Jun-2021 Status: Active Post-traumatic stre ss disorder, unspecified (F43.10) 23-Jun-2021 Status: Active Anxiety disorder, u nspecified (F41.9) 23-Jun-2021 Status: Active Unspecified protein -calorie malnutrition (E46) 23-Jun-2021 Status: Active Crohn's disease, un specified, without complications (K50.90) 23-Jun-2021 Status: Active Encounter for atten tion to gastrostomy (Z43.1) 23-Jun-2021 Status: Active Peptic ulcer, site unspecified, unspecified as acute or chronic, without hemorrhage or perforation (K27.9) 23-Jun-2021 Status: Active Chronic gastrojejun al ulcer without hemorrhage or perforation (K28.7) 23-Jun-2021 Status: Active Medications Name Dates Details Docusate Sodium 100 MG Jose Angel Fleming Active lamoTRIgine 25 MG Jose Angel Fleming* Start : 23-Jun-2021 Active Levothyroxine Sodium 125 MCG Jose Angel [...] feedings via j tube 7 x dayTwo Cedrick HN 3.5 cans QD x 1 month (120mL per feeding) Ins truction Type: Nutrition education Payers * Medicare - [facility]
--- OUTSIDE RECORDS SUMMARY | 2021-06-30 22:27 | CCD ---
Author Author [facility] Organization [facility] Address Unknown Phone Unavailable Care Team Providers Care Metal Trades Instructor Name Role Phone Pam Baires Unavailable Pam Baires Unavailable DequanPam young Unavailable Pam Baires Unavailable Dequan, Pam Unavailable Dequan, Pam Unavailable Dequan, Pam Unavailable Dequan, Pam Unavailable Essence, Nell Cortes MD Unavailable Unavailable [...] Unavailable Essence, Nell Cortes MD Unavailable Unavailable Essecne, Nell Cortes MD Unavailable Unavailable Essence, Nell [...] Essence, Nell Cortse MD Unavailable Unavailable Essence, A Rashawn FAIR [...] Unavailable Essence, Nell Cortes MD Unavailable Unavailable CARI DE SOUZA MD Unavailable Unavailable [...] Ragini Unavailable Unavailable Mac, Ragini Unavailable Unavailable MELVINA, JEFE MD Unavailable Unavailable MELVINA, JEFE MD Unavailable Unavailable MELVINA, JEFE MD Unavailable Unavailable MELVINA, JEFE MD Unavailable Unavailable MELVINA, JEFE MD Unavailable Unavailable MELVINA, JEFE MD Unavailable Unavailable MELVINA, JEFE MD Unavailable Unavailable MELVINA, JEFE MD Unavailable Unavailable MELVINA, JEFE MD Unavailable Unavailable MELVINA, JEFE MD Unavailable Unavailable MELVINA, JEFE MD Unavailable Unavailable MELVINA, JEFE MD Unavailable Unavailable MELVINA, JEFE FAIR Unavailable Unavailable MELVINA, JEFE FAIR Unavailable Unavailable MELVINA, JEFE MD Unavailable Unavailable MELVINA, JEFE FAIR Unavailable Unavailable MELVINA, JEFE MD Unavailable Unavailable MondomCari MD Unavailable Unavailable MondomCari MD Unavailable Unavailable MondomCari MD Unavailable Unavailable MondomCari MD Unavailable Unavailable MondomCari MD Unavailable Unavailable MondomCari MD Unavailable Unavailable MondomCari MD Unavailable Unavailable MonCari alvarez MD Unavailable Unavailable MondomCari MD Unavailable Unavailable BUDDY FAIR, FREDERICK Unavailable [...] Unavailable Unavailable SANDEEP BAZAN MD Unavailable Unavailable GOMEZ, L DENNISE PA [...] Unavailable Unavailable Pavelock, Kevin Unavailable Unavailable Pavelock, Kevni Unavailable Unavailable Pavelock, Kevin Unavailable Unavailable Pavelock, [...] PA Unavailable [facility]available [facility] Unavailable Unavailable JUSTINO DOE MD, ANAYELI Unavailable Unavailable KEEGAN FAIR, BRAYAN Unavailable Unavailable Karen SIBLEY MD Unavailable Unavailable COPELIN II, Cesario GUADALUPE MD Unavailable Unavailable COPEROSA II, Cesario GUADALUPE MD Unavailable Unavailable PAN, RASHAWN MADIHA PA [...] RASHAWN MADIHA PA Unavailable Unavailable PAN, RASHAWN MDAIHA PA Unavailable Unavailable PAN, RASHAWN MADIHA PA Unavailable Unavailable PAN, RASHAWN MADIHA PA Unavailable Unavailable PAN, RASHAWN MADIHA PA Unavailable Unavailable PAN, RASHAWN MADIHA PA Unavailable Unavailable PAN, RASHAWN MADIHA PA Unavailable Unavailable BolDean calvert MD Unavailable Unavailable BolDean calvert MD Unavailable Unavailable BolDean calvert MD Unavailable Unavailable BolDean calvert MD Unavailable Unavailable BolDean calvert MD Unavailable Unavailable BolDean calvert MD Unavailable Unavailable BolDean calvert MD Unavailable Unavailable BolDean calvert MD Unavailable Unavailable BolDean calvert MD Unavailable Unavailable BolDean calvert MD Unavailable Unavailable BolDean calvert MD Unavailable Unavailable BolDean calvert MD Unavailable Unavailable BolDean calvert MD Unavailable Unavailable BolDean calvert MD Unavailable Unavailable BolDean calvert MD Unavailable Unavailable BolDean calvert MD Unavailable [...] Unavailable Unavailable BolDean calvert MD Unavailable Unavailable Daen Willard MD Unavailable Unavailable BolDean calvert MD Unavailable Unavailable Dean Willard MD Unavailable Unavailable Dean Willard MD Unavailable Unavailable Dean Willard MD Unavailable Unavailable BolDean calvert MD Unavailable Unavailable BolDean calvert MD Unavailable Unavailable Dean Willard MD Unavailable Unavailable BolDean calvert MD Unavailable Unavailable BolDean calvert MD Unavailable Unavailable BolDean calvert MD Unavailable Unavailable BolDean calvert MD Unavailable Unavailable Bolla, S David MD Unavailable Unavailable Bolnehal, Dean Hernandez MD Unavailable Unavailable Dean Willard MD Unavailable Unavailable Dean Willard MD Unavailable Unavailable Dean Willard MD Unavailable Unavailable Dean Willard MD Unavailable Unavailable PATI, CAMILA DO Unavailable Unavailable PATI, CAMILA DO Unavailable Unavailable PATI, CAMILA DO Unavailable Unavailable PATI, ACMILA DO Unavailable Unavailable PATI, CAMILA DO Unavailable [...] Jr, MD Unavailable Unavailable Jeff Fly Bolaños Kashif MD Unavailable Unavailable Fly Aguilar Jr Kashif MD Unavailable Unavailable Jeff Jr Bill Kashif MD Unavailable Unavailable Jeff Bolaños Bill Kashif MD Unavailable Unavailable Jeff Jr Bill Kashif MD Unavailable Unavailable Jeff Jr Bill Kashif MD Unavailable Unavailable Jeff Bolaños Bill Kashif Unavailable Unavailable Jeff Bolaños Bill Kashif MD Unavailable Unavailable Jeff Jr Bill Kashif MD Unavailable Unavailable Jeff Jr Bill Kashif MD Unavailable Unavailable Jeff Jr Bill Kashif MD Unavailable Unavailable Jeff Jr, Bill Kashif MD Unavailable Unavailable Jeff Jr, Bill Kashif MD Unavailable Unavailable Jeff Jr, Bill Kashif MD Unavailable Unavailable Jeff Jr, Bill Kashif MD Unavailable Unavailable Jeff Jr, Bill Kashif MD Unavailable Unavailable Jeff Jr, Bill Kashif MD Unavailable Unavailable Jeff Jr, Bill Kashif MD Unavailable Unavailable Jeff Jr, Bill Kashif MD Unavailable Unavailable Jeff Jr Bill Kashif MD Unavailable Unavailable Jeff Jr Bill Kashif MD Unavailable Unavailable Jeff Jr Bill Kashif MD Unavailable Unavailable Jeff Jr, [...] Unavailable Unavailable Jonn Conrad MD Unavailable Unavailable EGORHO, F GWEN FPMHNP [...] is protected by Article 27-F of the [facility] Public Health law. If you continue you may have access to information: Regarding HIV / AIDS; Provided by facilities licensed or operated by the [facility] Office of Mental Health; or Provided by the [facility] Office for People With Developmental Disabilities. If such information is present, then the following [facility] mandated warning applies: This information has been [...] law may result in a fine or retirement sentence or both. A general authorization for the release of medical or other information is NOT sufficient authorization for further disc losure. Allergies and Adverse Reactions Type Description Substance Reaction Status Data Source(s ) Seasonale () (Levonorgestrel-ethinyl Estrad) Seasona le () (Levonorgestrel- ethinyl Estrad) Seasonale () (Levonorgestrel-ethinyl Estrad) a ctive NETSMART ([facility]) bee venom (honey bee) bee venom (honey bee) bee venom (honey bee) active NETSMART ([facility]) Maxalt (rizatriptan) Maxalt (rizatriptan) Maxalt (rizatriptan) active NETSMART ([facility]) amitriptyline amitriptyline amitriptyline active NETSM ART ([facility]) Propensity to adverse reactions NO ALLERGIES ON FILE NO ALLERGIES ON FILE [facility] Propensity to adverse reactions LEVONORGESTREL-ETHINYL ESTRA D LEVONORGESTREL- ETHINYL ESTRAD Unknown [facility] Propensity to adverse reactions BEE VENOM PROTEIN (HONEY BEE) Ho huseyin bee venom Other Unknown [facility] Propensity to adverse reactions RIZATRIPTAN rizatriptan Swelling High [facility] Propensity to adverse reactions AMITRIPTYLINE Amitriptyline Swelling High [facility] Allergy to substance Severe Amitriptyline Hallucinations DAVID ([facility]) Allergy to substance Severe Amitriptyline Hallucinations DAVID ([facility]) Family History Family Member Name Family Member Gender Family Member Status Date o f Status Description Data Source(s) Unknown Female Condition Family Member Diabetes B on [facility] Unknown Female Condition Family Member Cancer B on [facility] Unknown Female Condition Family Member Hypertension Bon [facility] Encounters Encounter Providers Location Date Indications Data Source(s ) 06/23/2021 12:00:00 AM EST - 021 03:17:14 PM EST NETSMART ([facility]) INPATIENT Attender: BILL GARNICA MD 5F-OR 06/13/2021 10:36:35 AM EDT [facility] INPATIENT Attender: Rashawn Lowry MDAdmitter: Rashawn summers MD 5F-1E 06/12/2021 01:00:00 AM EDT - 06/18/2021 05:03:00 PM EST [facility] Patient discharged. Outpatient Attender: GWEN CHIN 06/04/2021 10:00: 00 AM T [facility] Outpatient Attender: Ragini Watts 06/04/2021 09:01:00 AM EDT [facility] Outpatient [facility] 05/27/2021 12:00:00 AM EDT eCW1 ([facility]) Outpatient [facility] 05/27/2021 12:00:00 AM EDT eCW1 ([facility]) Outpatient Attender: GWEN CHIN 05/21/2021 10:00: 00 AM EDT [facility] Outpatient Attender: Ragini Watts 05/20/2021 01:00:00 PM EDT [facility] Outpatient [facility] 05/16/2021 12:00:00 AM EDT eCW1 ([facility]) Outpatient Attender: GWEN CHIN 05/05/2021 02:00: 00 PM EDT [facility] Outpatient [facility] 05/05/2021 12:00:00 AM EDT eCW1 ([facility]) Outpatient [facility] 05/05/2021 12:00:00 AM EDT eCW1 ([facility]) INPATIENT Attender: Jonn Conrad MDAtten leo: CAMILA PATI DOAttender: SANDEEP BAZAN MDAdmitter: SANDEEP BAZAN MDConsultant: Kashif Aguilar JrConsultant: Rashawn Lowry MD 5F-1E 05/01/2021 10:26:00 PM EDT - 05/04/2021 04:32:00 PM EDT [facility] Patient discharged. INPATIENT Attender: JEFE HEIN MDAtten leo: Jonn Conrad MDAttender: Cari De Souza MDAttender: CARI DE SOUZA MDAdmitter: Jonn Conrad MDConsultant: Rashawn Lowry MDConsultant: ANAYELI BADILLO IIConsultant: ANAYELI BADILLO II MDConsultant: Kevin Cervantes 5F-1E 04/25/2021 12:14:00 PM EDT - 04/28/2021 06:00:00 PM EDT [facility] Patient discharged. Emergency Attender: MADIHA CISNEROSeferrer: Ventura Gomez PA-C EMERGENCY ROOM-ER 04/24/2021 11:49:00 PM EDT - 04/25/2021 09:55:00 AM EDT [facility] Patient discharged. Outpatient Attender: ASHOK DEAL 04/20/2021 04:35:45 PM EDT [facility] Outpatient [facility] 04/15/2021 12:00:00 AM EDT eCW1 ([facility]) Emergency Attender: Harley AGUILARCReferrer: Scott Gomez PA-C EMERGENCY ROOM-ER 04/12/2021 09:19:00 PM EDT - 04/13/2021 01:29:00 AM EDT [facility] Patient discharged. Outpatient Attender: Harley AGUILARCConsultant: [facility] [id number] 04/12/2021 09:06:00 PM EDT [facility] 04/09/2021 10:00: 00 AM EDT [facility] David Willard MD: [id number] [address], [place] [address], Ph. Attender: David PORTER - [facility] - Main Office 04/07/2021 12:00:00 AM EDT DAVID ([facility]) David Willard MD: [address] [address], [place] [address], Ph. [phone] Attender: David Willard MD AR - [facility] - Main Office 04/02/2021 12:00:00 AM EDT DAVID ([facility]) Outpatient [facility] 03/28/2021 12:00:00 AM EDT eCW1 ([facility]) Outpatient [facility] 03/28/2021 12:00:00 AM EDT eCW ([facility]) INPATIENT Attender: FREDERICK GOODWIN MD 5F-GX 03/26/2021 05:43:40 PM EDT [facility] INPATIENT Attender: BRAYAN ALLISON MD 5F-GX 03/25/2021 09:53:3 9 AM EDT [facility] INPATIENT Attender: CARI DE SOUZA MDA ttender: Cari De Souza MDAttender: WINSTON QUIROGA MDAttender: Jonn Conrad MDAttender: MARTIN SIBLEY MDAttender: Martin Sibley MDAdmitter: Jonn Conrad MDConsultant: Rashawn Lowry MDConsultant: Kevin Cervantes 5F-1E 03/23/2021 03:25:00 PM E DT - 03/27/2021 04:11:00 PM EDT [facility] Patient discharged. Outpatient [id number] 03/22/2021 08:11:00 PM EDT [facility] Emergency Attender: WILLIE DIAZ PAReferrer: Scott Gomez PA-C EMERGENCY ROOM-ER 03/22/2021 03:34:00 PM EDT - 03/23/2021 12:40:00 PM EDT [facility] Patient discharged. Outpatient Attender: GWEN JEAN FPMHRUTH 03/19/2021 09:49: 00 AM EDT [facility] Outpatient Attender: Abida AGUILARCReferrer: Abida Gomez PA-C 03/19/2021 08:00:00 AM EDT [facility] David Willard MD: [id number], [place] [address], Ph. Attender: David PORTER - [facility] - Main Office 03/18/2021 12:00:00 AM EDT DAVID ([facility]) David Willard MD: [address], [address], [place] [address], Ph. Attender: David Willard MD AR - [facility] - Main Office 03/18/2021 12:00:00 AM EDT DAVID ([facility]) Preadmit Attender: Abida Gomez PA-C 03/14/2021 08:00 :00 AM EDT [facility] Outpatient [facility] 03/12/2021 12:00:00 AM EDT eCW1 ([facility]) Outpatient [facility] 03/11/2021 12:00:00 AM EDT eCW1 ([facility]) Outpatient Attender: GWEN CHINReferrer: Ventura Gomez PA-C EMERGENCY ROOM-LAB 03/10/2021 03:46:00 PM EDT - 03/10/2021 03:46:00 PM EDT [facility] Outpatient Attender: Abida Sherwoodferrer: Abida Gomez PA-C EMERGENCY ROOM-RIVI 03/10/2021 02:37:00 PM EDT - 03/10/2021 02:37:00 PM EDT [facility] Outpatient [facility] 03/10/2021 12:00:00 AM EDT eCW1 ([facility]) Outpatient [facility] 03/03/2021 12:00:00 AM EDT eCW1 ([facility]) Outpatient Attender: GWEN CHIN 02/13/2021 01:00: 00 PM EDT [facility] Outpatient [facility] 02/11/2021 12:00:00 AM EDT eCW1 ([facility]) Outpatient [facility] 02/04/2021 12:00:00 AM EDT eCW1 ([facility]) Outpatient Attender: JUVE FOOTE PA-C 01/31/2021 11:00:00 AM EDT [facility] Outpatient [facility] 01/30/2021 12:00:00 AM EDT eCW1 ([facility]) Outpatient [facility] 01/30/2021 12:00:00 AM EDT eCW1 ([facility]) Outpatient Attender: Pam Daniels: FABIEN SONI RPA-C EMERGENCY ROOM-[facility] 01/29/2021 01:00:00 PM EDT - 01/29/2021 01:00:00 PM EDT [facility] Outpatient Attender: Ragini Watts 01/29/2021 10:00:00 AM EDT [facility] Outpatient [facility] 01/29/2021 12:00:00 AM EDT eCW1 ([facility]) Outpatient [facility] 01/22/2021 12:00:00 AM EDT eCW1 ([facility]) Outpatient [facility] 01/21/2021 12:00:00 AM EDT eCW1 ([facility]) Outpatient [facility] 01/16/2021 12:00:00 AM EDT eCW1 ([facility]) Outpatient Attender: Pam Daniels: FABIEN SONI RPA-C EMERGENCY ROOM-[facility] 01/15/2021 08:03:00 AM EDT - 01/15/2021 08:03:00 AM EDT [facility] Outpatient [facility] 01/15/2021 12:00:00 AM EDT eCW1 ([facility]) Outpatient [facility] 01/15/2021 12:00:00 AM EDT eCW1 ([facility]) Emergency Attender: WILLIE Lozada: FABIEN HEART EMERGENCY ROOM-ER 06/04/2019 12:15:00 PM EDT - 06/04/2019 03:18:00 PM EDT [facility] Patient discharged. Emergency Attender: DENNISE Lozada: ALEK [...] 08:49:00 PM EST - 09/30/2017 12:27:00 AM [facility] Outpatient Attender: FABIEN HEART EMERGENCY ROOM-LAB 0 08/25/2017 04:16:00 PM EST - 08/25/2017 04:16:00 PM [facility] Emergency Attender: OSKAR MANUEL EMERGENCY ROOM- ER 04/13/2017 09:15:00 PM EDT - 04/14/2017 01:54:00 AM [facility] Emergency Attender: DENNISE MANUEL EMERGENCY ROOM-ER 09:02:00 PM EDT - 03/21/2017 01:55:00 AM [facility] Emergency Attender: MADIHA MANUEL EMERGENCY ROOM-ER 12/30/2016 09:12:00 PM EDT - 12/31/2016 01:50:00 AM [facility] Medications Medication Brand Name Start Date Product Form Dose Route Admi nistrative Instructions Pharmacy Instructions Status Indications Reaction Description Data Source(s) Docusate Sodium 100 MG Docusate Sodium 06/24/2021 12:00:00 AM EST completed NETSMART ([facility]) Carafate 1 GM Carafate 06/23/2021 12:00:00 AM EST completed NETSMART ([facility]) TiZANidine HCl 4 MG TiZANidine HCl 06/23/2021 12:00:00 AM EST completed NETSMART ([facility]) Venlafaxine HCl ER 150 MG Venlafaxine HCl ER 06/23/2021 12:00:00 AM EST completed NETSMART ([facility]) Acetaminophen Extra Strength 500 MG Acetaminophen Extra Stre ngth 06/23/2021 12:00:00 AM EST 2.0 {tablet} completed NETSMART ([facility]) Rexulti 1 MG Rexulti 06/23/2021 12:00:00 AM EST 2.0 {mg} completed NETSMART ([facility] ) Prazosin HCl 1 MG Prazosin HCl 06/23/2021 12:00:00 AM EST 2.0 {m g} completed NETSMART ([facility]) oxyCODONE-Acetaminophen 5-325 MG oxyCODONE-Acetaminophen 12:00:00 AM EST 1.0 {tablet} completed N ETSMART ([facility]) lamoTRIgine 25 MG lamoTRIgine 06/23/2021 12:00:00 AM EST 50.0 {m g} completed NETSMART ([facility]) Protonix 40 MG Protonix 06/23/2021 12:00:00 AM EST completed NETSMART ([facility]) Levothyroxine Sodium 125 MCG Levothyroxine Sodium 06/23/2021 12:00: 00 AM EST completed NETSMART ([facility]) Melatonin 10 MG Melatonin 06/23/2021 12:00:00 AM EST 20.0 {mg} completed NETSMART ([facility]) Mirtazapine 15 MG Mirtazapine 06/23/2021 12:00:00 AM EST completed NETSMART ([facility]) Multivitamin Adults Multivitamin Adults 06/23/2021 12:00:00 AM EST completed NETSMART ([facility]) lamotrigine 25 MG Oral Tablet lamoTRIgine 25 MG lamoTRIgine 25 MG 05/21/2021 12:00:00 AM EDT 1.0 {tablet} active la moTRIgine 25 MG eCW1 ([facility]) lamotrigine 25 MG Oral Tablet lamoTRIgine 25 MG lamoTRIgine 25 MG 05/21/2021 12:00:00 AM EDT 1.0 {tablet} active la moTRIgine 25 MG eCW1 ([facility]) Acetaminophen 325 MG / Hydrocodone Nury trate 7.5 MG Oral Tablet HYDROcodone- acetaminophen (NORCO) 7.5-325 mg per tablet HYDROcodone-acetaminophen (NORCO) 7.5-325 mg per tablet 05/04/2021 12:00:00 AM EDT 1 {tbl} oral active Take 1 tablet by mouth every 6 (six) hours if needed for moderate pain or severe pain for up to 3 doses. [facility] Misoprostol 0.2 MG Oral Tablet miSOPROStoL (CYTOTEC) 2 00 mcg tablet miSOPROStoL (CYTOTEC) 200 mcg tablet 05/04/2021 12:00:00 AM EDT 200 ug oral active Take 1 tablet (200 mcg total) by mouth 4 (four) times a day. [facility] Methylcellulose 500 MG Oral Tablet methy lcellulose, laxative, (CITRUCEL) 500 mg tablet methylcellulose, laxative, (CITRUCEL) 500 mg tablet 12:00:00 AM EDT 1000 mg oral aborted Take 2 t ablets (1,000 mg total) by mouth 2 (two) times a day. [facility] Lactobacillus rhamnosus GG [id number] U NT Oral Capsule lactobacillus rhamnosus (PROBIOTIC EXTRA STRENGTH) 20 billion cell capsule lactobacillus rhamnosus (PROBIOTIC EXTRA STRENGTH) 20 billion cell capsule 03/27/2021 12:00:00 AM EDT 1 {capsule} oral aborted Take 1 capsule by [facility] 1 (one) time each day. [facility] brexpiprazole 2 MG Oral Tablet [Rexulti] Rexulti 2 MG Rexult i 2 MG 03/19/2021 12:00:00 AM EDT 1.0 {tablet} active Re xulti 2 MG eCW1 ([facility]) brexpiprazole 1 MG Oral Tablet [Rexulti] Rexulti 1 MG Rexult i 1 MG 03/19/2021 12:00:00 AM EDT 1.0 {tablet} active Re xulti 1 MG eCW1 ([facility]) brexpiprazole 1 MG Oral Tablet [Rexulti] Rexulti 1 MG Rexult i 1 MG 03/19/2021 12:00:00 AM EDT 1.0 {tablet} active Re xulti 1 MG eCW1 ([facility]) brexpiprazole 2 MG Oral Tablet [Rexulti] Rexulti 2 MG Rexult i 2 MG 03/19/2021 12:00:00 AM EDT 1.0 {tablet} active Re xulti 2 MG eCW1 ([facility]) brexpiprazole 1 MG Oral Tablet [Rexulti] Rexulti 1 MG Rexult i 1 MG 03/19/2021 12:00:00 AM EDT 1.0 {tablet} active Re xulti 1 MG eCW1 ([facility]) brexpiprazole 2 MG Oral Tablet [Rexulti] Rexulti 2 MG Rexult i 2 MG 03/19/2021 12:00:00 AM EDT 1.0 {tablet} active Re xulti 2 MG eCW1 ([facility]) brexpiprazole 1 MG Oral Tablet [Rexulti] Rexulti 1 MG Rexult i 1 MG 03/19/2021 12:00:00 AM EDT 1.0 {tablet} active Re xulti 1 MG eCW1 ([facility]) brexpiprazole 2 MG Oral Tablet [Rexulti] Rexulti 2 MG Rexult i 2 MG 03/19/2021 12:00:00 AM EDT 1.0 {tablet} active Re xulti 2 MG eCW1 ([facility]) brexpiprazole 2 MG Oral Tablet [Rexulti] Rexulti 2 MG Rexult i 2 MG 03/19/2021 12:00:00 AM EDT 1.0 {tablet} active Re xulti 2 MG eCW1 ([facility]) brexpiprazole 1 MG Oral Tablet [Rexulti] Rexulti 1 MG Rexult i 1 MG 03/19/2021 12:00:00 AM EDT 1.0 {tablet} active Re xulti 1 MG eCW1 ([facility]) Wildomar Carbonate 300 MG Oral Capsule Wildomar Carbonate 300 MG 02/13/2021 12:00:00 AM EDT 1.0 {capsule} suspended Wildomar Carbonate 300 MG eCW1 ([facility]) Wildomar Carbonate 300 MG Oral Capsule Wildomar Carbonate 300 MG 02/13/2021 12:00:00 AM EDT 1.0 {capsule} suspended Wildomar Carbonate 300 MG eCW1 ([facility]) Prazosin 1 MG Oral Capsule Prazosin HCl 1 MG Prazosin HCl 1 MG 02/13/2021 12:00:00 AM EDT 1.0 {capsule_at_bedtime} active Prazosin HCl 1 MG eCW1 ([facility]) Wildomar Carbonate 300 MG Oral Capsule Wildomar Carbonate 300 MG 02/13/2021 12:00:00 AM EDT 1.0 {capsule} active L ithium Carbonate 300 MG eCW1 ([facility]) Wildomar Carbonate 300 MG Oral Capsule Wildomar Carbonate 300 MG 02/13/2021 12:00:00 AM EDT 1.0 {capsule} suspended Wildomar Carbonate 300 MG eCW1 ([facility]) Prazosin 1 MG Oral Capsule Prazosin HCl 1 MG Prazosin HCl 1 MG 02/13/2021 12:00:00 AM EDT 1.0 {capsule_at_bedtime} active Prazosin HCl 1 MG eCW1 ([facility]) Wildomar Carbonate 300 MG Oral Capsule Wildomar Carbonate 300 MG 02/13/2021 12:00:00 AM EDT 1.0 {capsule} suspended Wildomar Carbonate 300 MG eCW1 ([facility]) Prazosin 1 MG Oral Capsule Prazosin HCl 1 MG Prazosin HCl 1 MG 02/13/2021 12:00:00 AM EDT 1.0 {capsule_at_bedtime} active Prazosin HCl 1 MG eCW1 ([facility]) Prazosin 1 MG Oral Capsule Prazosin HCl 1 MG Prazosin HCl 1 MG 02/13/2021 12:00:00 AM EDT 1.0 {capsule_at_bedtime} active Prazosin HCl 1 MG eCW1 ([facility]) Prazosin 1 MG Oral Capsule Prazosin HCl 1 MG Prazosin HCl 1 MG 02/13/2021 12:00:00 AM EDT 1.0 {capsule_at_bedtime} active Prazosin HCl 1 MG eCW1 ([facility]) Prazosin 1 MG Oral Capsule Prazosin HCl 1 MG Prazosin HCl 1 MG 02/13/2021 12:00:00 AM EDT 1.0 {capsule_at_bedtime} active Prazosin HCl 1 MG eCW1 ([facility]) [place] Carbonate 300 MG Oral Capsule [place] Carbonate 300 MG 02/13/2021 12:00:00 AM EDT 1.0 {capsule} suspended Wild[place] Carbonate 300 MG eCW1 ([facility]) [place] Carbonate 300 MG Oral Capsule [place] Carbonate 300 MG 02/13/2021 12:00:00 AM EDT 1.0 {capsule} suspended [place] Carbonate 300 MG eCW1 ([facility]) Prazosin 1 MG Oral Capsule Prazosin HCl 1 MG Prazosin HCl 1 MG 02/13/2021 12:00:00 AM EDT 1.0 {capsule_at_bedtime} active Prazosin HCl 1 MG eCW1 ([facility]) [place] Carbonate 300 MG Oral Capsule [place] Carbonate 300 MG 02/13/2021 12:00:00 AM EDT 1.0 {capsule} suspended [place] Carbonate 300 MG eCW1 ([facility]) Prazosin 1 MG Oral Capsule Prazosin HCl 1 MG Prazosin HCl 1 MG 02/13/2021 12:00:00 AM EDT 1.0 {capsule_at_bedtime} active Prazosin HCl 1 MG eCW1 ([facility]) [place] Carbonate 300 MG Oral Capsule [place] Carbonate 300 MG 02/13/2021 12:00:00 AM EDT 1.0 {capsule} suspended [place] Carbonate 300 MG eCW1 ([facility]) [place] Carbonate 300 MG Oral Capsule [place] Carbonate 300 MG 02/13/2021 12:00:00 AM EDT 1.0 {capsule} active L ithium Carbonate 300 MG eCW1 ([facility]) Prazosin 1 MG Oral Capsule Prazosin HCl 1 MG Prazosin HCl 1 MG 02/13/2021 12:00:00 AM EDT 1.0 {capsule_at_bedtime} active Prazosin HCl 1 MG eCW1 ([facility]) [place] Carbonate 300 MG Oral Capsule [place] Carbonate 300 MG 02/13/2021 12:00:00 AM EDT 1.0 {capsule} suspended [place] Carbonate 300 MG eCW1 ([facility]) Prazosin 1 MG Oral Capsule Prazosin HCl 1 MG Prazosin HCl 1 MG 02/13/2021 12:00:00 AM EDT 1.0 {capsule_at_bedtime} active Prazosin HCl 1 MG eCW1 ([facility]) Prazosin 1 MG Oral Capsule Prazosin HCl 1 MG Prazosin HCl 1 MG 02/13/2021 12:00:00 AM EDT 1.0 {capsule_at_bedtime} active Prazosin HCl 1 MG eCW1 ([facility]) Prazosin 1 MG Oral Capsule Prazosin HCl 1 MG Prazosin HCl 1 MG 02/13/2021 12:00:00 AM EDT 1.0 {capsule_at_bedtime} active Prazosin HCl 1 MG eCW1 ([facility]) [place] Carbonate 300 MG Oral Capsule [place] Carbonate 300 MG 02/13/2021 12:00:00 AM EDT 1.0 {capsule} suspended [place] Carbonate 300 MG eCW1 ([facility]) Prazosin 1 MG Oral Capsule Prazosin HCl 1 MG Prazosin HCl 1 MG 02/13/2021 12:00:00 AM EDT 1.0 {capsule_at_bedtime} active Prazosin HCl 1 MG eCW1 ([facility]) [place] Carbonate 300 MG Oral Capsule [place] Carbonate 300 MG 02/13/2021 12:00:00 AM EDT 1.0 {capsule} suspended [place] Carbonate 300 MG eCW1 ([facility]) 0.3 ML Epinephrine 1 MG/ML Auto-Injector [Epipen] EpiP en 2-Jacquelyn 0.3 MG/0.3ML EpiPen 2-Jacquelyn 0.3 MG/0.3ML 01/29/2021 12:00:00 AM EDT active EpiPen 2-Jacquelyn 0.3 MG/0.3ML eCW1 ([facility]) Levothyroxine Sodium 0.05 MG Oral Tablet Levothyroxine Sodium 50 MCG Levothyroxine Sodium 50 MCG 01/29/2021 12:00:00 AM EDT active Levothyroxine Sodium 50 MCG eCW1 ([facility]) Levothyroxine Sodium 0.025 MG Oral Tablet Levothyroxin e Sodium 25 MCG Levothyroxine Sodium 25 MCG 01/29/2021 12:00:00 AM EDT active Levothyroxine Sodium 25 MCG eCW1 ([facility]) 0.3 ML Epinephrine 1 MG/ML Auto-Injector [Epipen] EpiP en 2-Jacquelyn 0.3 MG/0.3ML EpiPen 2-Jacquelyn 0.3 MG/0.3ML 01/29/2021 12:00:00 AM EDT active EpiPen 2-Jacquelyn 0.3 MG/0.3ML eCW1 ([facility]) 0.3 ML Epinephrine 1 MG/ML Auto-Injector [Epipen] EpiP en 2-Jacquelyn 0.3 MG/0.3ML EpiPen 2-Jacquelyn 0.3 MG/0.3ML 01/29/2021 12:00:00 AM EDT active EpiPen 2-Jacquelyn 0.3 MG/0.3ML eCW1 ([facility]) 0.3 ML Epinephrine 1 MG/ML Auto-Injector [Epipen] EpiP en 2-Jacquelyn 0.3 MG/0.3ML EpiPen 2-Jacquelyn 0.3 MG/0.3ML 01/29/2021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 disorder) Proble m 01/15/2021 12:00:00 AM EDT eCW1 ([facility]) K21.9 [id number] Gastroesophageal reflux disease without e sophagitis Problem 01/15/2021 12:00:00 AM EDT eCW1 ([facility]) F14.11 [id number] Cocaine abuse in remission Problem 12:00:00 AM EDT eCW1 ([facility]) Z87.19 [id number] History of gastrointestinal ulcer Problem 01/15/2021 12:00:00 AM EDT eCW1 ([facility]) F15.21 [id number] Methamphetamine dependence in remission P roblem 01/15/2021 12:00:00 AM EDT eCW1 ([facility]) K50.919 [id number] Crohn's disease with complication, unspecified gastrointestinal tract location Problem 01/15/2021 12:00:00 AM EDT eCW1 ([facility]) Z87.19 History of gastrointestinal disease History of Crohn's disease Problem 01/15/2021 12:00:00 AM EDT eCW1 ([facility]) Z72.0 [id number] Current tobacco use Problem 01/15/2021 12:00 :00 AM EDT eCW1 ([facility]) Surgeries/Procedures Procedure Description Date Indications Data Source(s) BLOOD COUNT COMPLETE AUTO&AUTO DIFRNTL WBC COUNT <td>H C CBC W/ DIFFERENTIAL</td><td>Routine</td><td>05/04/2021 4:32 AM EDT</td><td></td><td> </td> 05/04/2021 04:32:00 AM EDT [facility] MAGNESIUM <td>MAGNESIUM</td><td>Routin e</td><td>05/04/2021 4:32 AM EDT</td><td></td><td> </td> 05/04/2021 04:32:00 AM EDT [facility] BASIC METABOLIC PANEL CALCIUM TOTAL <td>BASIC METABOLI C PANEL</td><td>Routine</td><td>05/04/2021 4:32 AM EDT</td><td></td><td> </td> 05/04/2021 04:32:00 AM EDT [facility] PROTHROMBIN TIME <td>PT ON THERAPY</td><td>Ro utine</td><td>05/03/2021 4:00 AM EDT</td><td></td><td> </td> 05/03/2021 04:00:00 AM EDT [facility] BLOOD COUNT COMPLETE AUTO&AUTO DIFRNTL WBC COUNT <td>H C CBC W/ DIFFERENTIAL</td><td>Routine</td><td>05/03/2021 4:00 AM EDT</td><td></td><td> </td> 05/03/2021 04:00:00 AM EDT [facility] BASIC METABOLIC PANEL CALCIUM TOTAL <td>BASIC METABOLI C PANEL</td><td>Routine</td><td>05/03/2021 4:00 AM EDT</td><td></td><td> </td> 05/03/2021 04:00:00 AM EDT [facility] BLOOD COUNT HEMOGLOBIN <td>HEMOGLOBIN</td><td>Timed </td><td>05/02/2021 11:59 PM EDT</td><td></td><td> </td> 05/02/2021 11:59:00 PM EDT [facility] BLOOD COUNT HEMATOCRIT <td>HEMATOCRIT</td><td>Timed </td><td>05/02/2021 11:59 PM EDT</td><td></td><td> </td> 05/02/2021 11:59:00 PM EDT [facility] BLOOD COUNT HEMOGLOBIN <td>HEMOGLOBIN</td><td>Timed </td><td>05/02/2021 7:00 PM EDT</td><td></td><td> </td> 05/02/2021 07:00:00 PM EDT [facility] BLOOD COUNT HEMATOCRIT <td>HEMATOCRIT</td><td>Timed </td><td>05/02/2021 7:00 PM EDT</td><td></td><td> </td> 05/02/2021 07:00:00 PM EDT [facility] TRANSFUSE RED BLOOD CELLS <td>TRANSFUSE RED BLOOD CELLS</td><td>Routine</td><td>05/02/2021 2:51 PM EDT</td><td></td><td></td> 05/02/2021 02:51:44 PM EDT [facility] CYANOCOBALAMIN VITAMIN B-12 <td>VITAMIN B12 AND FOLATE</td><td>Routine</td><td>05/02/2021 11:52 AM EDT</td><td></td><td> </td> 05/02/2021 11:52:00 AM EDT [facility] IRON <td>IRON AND TIBC</td><td>Ro utine</td><td>05/02/2021 11:52 AM EDT</td><td></td><td> </td> 05/02/2021 11:52:00 AM EDT [facility] BLOOD COUNT COMPLETE AUTOMATED <td>CBC</td><td>STAT</t d><td>05/02/2021 11:52 AM EDT</td><td></td><td> </td> 05/02/2021 11:52:00 AM EDT [facility] BLOOD COUNT HEMOGLOBIN <td>HEMOGLOBIN</td><td>Timed </td><td>05/02/2021 11:52 AM EDT</td><td></td><td> </td> 05/02/2021 11:52:00 AM EDT [facility] BLOOD COUNT HEMATOCRIT <td>HEMATOCRIT</td><td>Timed </td><td>05/02/2021 11:52 AM EDT</td><td></td><td> </td> 05/02/2021 11:52:00 AM EDT [facility] FERRITIN <td>FERRITIN</td><td>Routine </td><td>05/02/2021 11:52 AM EDT</td><td></td><td> </td> 05/02/2021 11:52:00 AM EDT [facility] BLOOD TYPING ABO <td>PREPARE RBC</td><td>Rout ine</td><td>05/02/2021 9:31 AM EDT</td><td></td><td> </td> 05/02/2021 09:31:00 AM EDT [facility] SECOND (2ND) CONFIRMATION TYPE <td>SECOND (2ND) CONFIR MATION TYPE</td><td>Routine</td><td>05/02/2021 4:37 AM EDT</td><td></td><td> </td> 05/02/2021 04:37:00 AM EDT [facility] BLOOD COUNT HEMOGLOBIN <td>HEMOGLOBIN</td><td>Timed </td><td>05/02/2021 4:37 AM EDT</td><td></td><td> </td> 05/02/2021 04:37:00 AM EDT [facility] BLOOD COUNT HEMATOCRIT <td>HEMATOCRIT</td><td>Timed </td><td>05/02/2021 4:37 AM EDT</td><td></td><td> </td> 05/02/2021 04:37:00 AM EDT [facility] BLOOD TYPING ABO <td>TYPE AND SCREEN</td><td> STAT</td><td>05/02/2021 4:37 AM EDT</td><td></td><td> </td> 05/02/2021 04:37:00 AM EDT [facility] COMPREHENSIVE METABOLIC PANEL <td>COMPREHENSIVE METABO LIC PANEL</td><td>Routine</td><td>05/02/2021 4:37 AM EDT</td><td></td><td> </td> 05/02/2021 04:37:00 AM EDT [facility] POCT GLUCOSE METER UNSOLICITED RESULTS <td>POCT GLUCOS E METER UNSOLICITED RESULTS</td><td>Routine</td><td>04/28/2021 12:51 PM EDT</td><td></td><td> </td> 04/28/2021 12:51:00 PM EDT [facility] POCT GLUCOSE METER UNSOLICITED RESULTS <td>POCT GLUCOS E METER UNSOLICITED RESULTS</td><td>Routine</td><td>04/28/2021 5:33 AM EDT</td><td></td><td> </td> 04/28/2021 05:33:00 AM EDT [facility] BLOOD COUNT COMPLETE AUTO&AUTO DIFRNTL WBC COUNT <td>H C CBC W/ DIFFERENTIAL</td><td>Routine</td><td>04/28/2021 4:34 AM EDT</td><td></td><td> </td> 04/28/2021 04:34:00 AM EDT [facility] COMPREHENSIVE METABOLIC PANEL <td>COMPREHENSIVE METABO LIC PANEL</td><td>Routine</td><td>04/28/2021 4:34 AM EDT</td><td></td><td> </td> 04/28/2021 04:34:00 AM EDT [facility] POCT GLUCOSE METER UNSOLICITED RESULTS <td>POCT GLUCOS E METER UNSOLICITED RESULTS</td><td>Routine</td><td>04/28/2021 12:00 AM EDT</td><td></td><td> </td> 04/28/2021 12:00:00 AM EDT [facility] POCT GLUCOSE METER UNSOLICITED RESULTS <td>POCT GLUCOS E METER UNSOLICITED RESULTS</td><td>Routine</td><td>04/27/2021 5:50 PM EDT</td><td></td><td> </td> 04/27/2021 05:50:00 PM EDT [facility] IRON <td>IRON AND TIBC</td><td>Ro utine</td><td>04/27/2021 2:08 PM EDT</td><td></td><td> </td> 04/27/2021 02:08:00 PM EDT [facility] FERRITIN <td>FERRITIN</td><td>Routine </td><td>04/27/2021 2:08 PM EDT</td><td></td><td> </td> 04/27/2021 02:08:00 PM EDT [facility] COMPREHENSIVE METABOLIC PANEL <td>COMPREHENSIVE METABO LIC PANEL</td><td>Routine</td><td>04/27/2021 2:08 PM EDT</td><td></td><td> </td> 04/27/2021 02:08:00 PM EDT [facility] TOXICOLOGY SCREEN, URINE <td>TOXICOLOGY SCREEN, URINE</td><td>Routine</td><td>04/27/2021 12:00 PM EDT</td><td></td><td> </td> 04/27/2021 12:00:00 PM EDT [facility] POCT GLUCOSE METER UNSOLICITED RESULTS <td>POCT GLUCOS E METER UNSOLICITED RESULTS</td><td>Routine</td><td>04/27/2021 11:47 AM EDT</td><td></td><td> </td> 04/27/2021 11:47:00 AM EDT [facility] POCT GLUCOSE METER UNSOLICITED RESULTS <td>POCT GLUCOS E METER UNSOLICITED RESULTS</td><td>Routine</td><td>04/27/2021 5:20 AM EDT</td><td></td><td> </td> 04/27/2021 05:20:00 AM EDT [facility] BLOOD COUNT COMPLETE AUTO&AUTO DIFRNTL WBC COUNT <td>H C CBC W/ DIFFERENTIAL</td><td>Routine</td><td>04/27/2021 4:56 AM EDT</td><td></td><td> </td> 04/27/2021 04:56:00 AM EDT [facility] BASIC METABOLIC PANEL CALCIUM TOTAL <td>BASIC METABOLI C PANEL</td><td>Routine</td><td>04/27/2021 4:56 AM EDT</td><td></td><td> </td> 04/27/2021 04:56:00 AM EDT [facility] POCT GLUCOSE METER UNSOLICITED RESULTS <td>POCT GLUCOS E METER UNSOLICITED RESULTS</td><td>Routine</td><td>04/26/2021 11:48 PM EDT</td><td></td><td> </td> 04/26/2021 11:48:00 PM EDT [facility] POCT GLUCOSE METER UNSOLICITED RESULTS <td>POCT GLUCOS E METER UNSOLICITED RESULTS</td><td>Routine</td><td>04/26/2021 6:48 PM EDT</td><td></td><td> </td> 04/26/2021 06:48:00 PM EDT [facility] POCT GLUCOSE METER UNSOLICITED RESULTS <td>POCT GLUCOS E METER UNSOLICITED RESULTS</td><td>Routine</td><td>04/26/2021 12:04 PM EDT</td><td></td><td> </td> 04/26/2021 12:04:00 PM EDT [facility] POCT GLUCOSE METER UNSOLICITED RESULTS <td>POCT GLUCOS E METER UNSOLICITED RESULTS</td><td>Routine</td><td>04/26/2021 4:57 AM EDT</td><td></td><td> </td> 04/26/2021 04:57:00 AM EDT [facility] BLOOD COUNT COMPLETE AUTO&AUTO DIFRNTL WBC COUNT <td>H C CBC W/ DIFFERENTIAL</td><td>Routine</td><td>04/26/2021 4:36 AM EDT</td><td></td><td> </td> 04/26/2021 04:36:00 AM EDT [facility] MAGNESIUM <td>MAGNESIUM</td><td>Routin e</td><td>04/26/2021 4:36 AM EDT</td><td></td><td> </td> 04/26/2021 04:36:00 AM EDT [facility] COMPREHENSIVE METABOLIC PANEL <td>COMPREHENSIVE METABO LIC PANEL</td><td>Routine</td><td>04/26/2021 4:36 AM EDT</td><td></td><td> </td> 04/26/2021 04:36:00 AM EDT [facility] POCT GLUCOSE METER UNSOLICITED RESULTS <td>POCT GLUCOS E METER UNSOLICITED RESULTS</td><td>Routine</td><td>04/25/2021 11:19 PM EDT</td><td></td><td> </td> 04/25/2021 11:19:00 PM EDT [facility] URNLS DIP STICK/TABLET RGNT AUTO W/O MICROSCOPY <td><c ontent ID="[id number]">URINALYSIS W/MICROSCOPIC & CULTURE IF INDICATED</content></td><td>STAT</td><td>04/25/2021 5:00 PM EDT</td><td></td><td><paragraph styleCode="header">Results for this procedure are in the <content styleCode="[id number]">results section</content>.</paragraph></td> 04/25/2021 05:00:00 PM EDT [facility] PROTHROMBIN TIME <td>PROTHROMBIN TIME NO THER APY OR UNKNOWN</td><td>STAT</td><td>04/25/2021 4:12 PM EDT</td><td></td><td> </td> 04/25/2021 04:12:00 PM EDT [facility] THROMBOPLASTIN TIME PARTIAL PLASMA/WHOLE BLOOD <td>PTT NO THERAPY OR UNKNOWN</td><td>STAT</td><td>04/25/2021 4:12 PM EDT</td><td></td><td> </td> 04/25/2021 04:12:00 PM EDT [facility] BLOOD COUNT COMPLETE AUTO&AUTO DIFRNTL WBC COUNT <td>H C CBC W/ DIFFERENTIAL</td><td>STAT</td><td>04/25/2021 4:12 PM EDT</td><td></td><td> </td> 04/25/2021 04:12:00 PM EDT [facility] TRIIODOTHYRONINE T3 TOTAL TT3 <td>T3</td><td>Routine</ td><td>04/25/2021 4:12 PM EDT</td><td></td><td> </td> 04/25/2021 04:12:00 PM EDT [facility] THYROID STIMULATING HORMONE TSH <td>TSH</td><td>STAT</ td><td>04/25/2021 4:12 PM EDT</td><td></td><td> </td> 04/25/2021 04:12:00 PM EDT [facility] THYROXINE FREE <td>T4, FREE</td><td>Routine </td><td>04/25/2021 4:12 PM EDT</td><td></td><td> </td> 04/25/2021 04:12:00 PM EDT [facility] MAGNESIUM <td>MAGNESIUM</td><td>STAT</ td><td>04/25/2021 4:12 PM EDT</td><td></td><td> </td> 04/25/2021 04:12:00 PM EDT [facility] LIPASE <td>LIPASE</td><td>STAT</td> <td>04/25/2021 4:12 PM EDT</td><td></td><td> </td> 04/25/2021 04:12:00 PM EDT [facility] COMPREHENSIVE METABOLIC PANEL <td>COMPREHENSIVE METABO LIC PANEL</td><td>STAT</td><td>04/25/2021 4:12 PM EDT</td><td></td><td> </td> 04/25/2021 04:12:00 PM EDT [facility] COLONOSCOPY <td>COLONOSCOPY</td><td></td ><td>03/27/2021 10:28 AM EDT</td><td></td><td> </td> 03/27/2021 10:28:41 AM EDT [facility] CUL BACT STOOL AEROBIC ADDL PATHOGENS&ID EA <td>ENTERI C PATHOGENS, PCR (FOR DX INSTEAD OF INITIAL STOOL CULTURE)</td><td>Routine</td><td>03/26/2021 4:15 PM EDT</td><td></td><td> </td> 03/26/2021 04:15:00 PM EDT [facility] BLOOD COUNT COMPLETE AUTOMATED <td>CBC</td><td>Routine </td><td>03/26/2021 4:28 AM EDT</td><td></td><td> </td> 03/26/2021 04:28:00 AM EDT [facility] MAGNESIUM <td>MAGNESIUM</td><td>Routin e</td><td>03/26/2021 4:28 AM EDT</td><td></td><td> </td> 03/26/2021 04:28:00 AM EDT [facility] BASIC METABOLIC PANEL CALCIUM TOTAL <td>BASIC METABOLI C PANEL</td><td>Routine</td><td>03/26/2021 4:28 AM EDT</td><td></td><td> </td> 03/26/2021 04:28:00 AM EDT [facility] UPPER GI ENDOSCOPY <td>UPPER GI ENDOSCOPY</td>< td></td><td>03/25/2021 10:41 AM EDT</td><td></td><td> </td> 03/25/2021 10:41:55 AM EDT [facility] UPPER GI NDSC DX W/WO COLLECTION SPECIMEN <td>EGD (ESOPHAGOGASTRODUODENOSCOPY)</td><td></td><td>03/25/2021 10:06 AM EDT</td><td> GI bleed</td><td></td> 03/25/2021 10:06:00 AM EDT - 03/25/2021 10:37:00 AM ED T [facility] BLOOD COUNT COMPLETE AUTO&AUTO DIFRNTL WBC COUNT <td>H C CBC W/ DIFFERENTIAL</td><td>Routine</td><td>03/25/2021 4:20 AM EDT</td><td></td><td> </td> 03/25/2021 04:20:00 AM EDT [facility] BASIC METABOLIC PANEL CALCIUM TOTAL <td>BASIC METABOLI C PANEL</td><td>Routine</td><td>03/25/2021 4:20 AM EDT</td><td></td><td> </td> 03/25/2021 04:20:00 AM EDT [facility] BLOOD COUNT COMPLETE AUTO&AUTO DIFRNTL WBC COUNT <td>H C CBC W/ DIFFERENTIAL</td><td>Routine</td><td>03/24/2021 4:29 AM EDT</td><td></td><td> </td> 03/24/2021 04:29:00 AM EDT [facility] MAGNESIUM <td>MAGNESIUM</td><td>Routin e</td><td>03/24/2021 4:29 AM EDT</td><td></td><td> </td> 03/24/2021 04:29:00 AM EDT [facility] COMPREHENSIVE METABOLIC PANEL <td>COMPREHENSIVE METABO LIC PANEL</td><td>Routine</td><td>03/24/2021 4:29 AM EDT</td><td></td><td> </td> 03/24/2021 04:29:00 AM EDT [facility] POCT GLUCOSE METER UNSOLICITED RESULTS <td>POCT GLUCOS E METER UNSOLICITED RESULTS</td><td>Routine</td><td>03/23/2021 10:25 PM EDT</td><td></td><td> </td> 03/23/2021 10:25:00 PM EDT [facility] BLOOD COUNT COMPLETE AUTO&AUTO DIFRNTL WBC COUNT <td>H C CBC W/ DIFFERENTIAL</td><td>STAT</td><td>03/23/2021 8:42 PM EDT</td><td></td><td> </td> 03/23/2021 08:42:00 PM EDT [facility] C-REACTIVE PROTEIN <td>C-REACTIVE PROTEIN</td>< td>Routine</td><td>03/23/2021 8:42 PM EDT</td><td></td><td> </td> 03/23/2021 08:42:00 PM EDT [facility] MAGNESIUM <td>MAGNESIUM</td><td>STAT</ td><td>03/23/2021 8:42 PM EDT</td><td></td><td> </td> 03/23/2021 08:42:00 PM EDT [facility] LACTATE <td>LACTIC ACID</td><td>Rout ine</td><td>03/23/2021 8:42 PM EDT</td><td></td><td> </td> 03/23/2021 08:42:00 PM EDT [facility] COMPREHENSIVE METABOLIC PANEL <td>COMPREHENSIVE METABO LIC PANEL</td><td>STAT</td><td>03/23/2021 8:42 PM EDT</td><td></td><td> </td> 03/23/2021 08:42:00 PM EDT [facility] OXYGEN DAILY PROTOCOL <td>OXYGEN DAILY PROTOCOL</td><td>Routine</td><td>03/23/2021 5:48 PM EDT</td><td></td><td></td> 03/23/2021 05:48:21 PM EDT [facility] OXYGEN DAILY PROTOCOL <td>OXYGEN DAILY PROTOCOL</td><td>Routine</td><td>03/23/2021 5:48 PM EDT</td><td></td><td></td> 03/23/2021 05:48:21 PM EDT [facility] MRI, lumbar spine, w/wo contrast 03/18/2021 12:00:00 A M EDT DAVID ([facility]) ECG ROUTINE ECG W/LEAST 12 LDS W/I&R 03/10/2021 12:00: 00 AM EDT [email or web address] ([facility]) Results ID Date Data Source [id number] 06/23/2021 04:24:24 PM EST [facility] Name Value Range Interpretation Code Description Data Arabella rce(s) Supporting Document(s) Discharge Summary [facility] NTODUt0kExMJMmBu62/JVTljEQWgj0RpFCfsSGz2PJuuIRNpI8JePPW2rB2hFKK2ETyPLtSaSrGvMDV4 lbm [file] BcOjDC1CKa1UJeL4AYT8kYVcMg3GKhlhQZQEGaNwCR3HIKx= ID Date Data Source [id number] 06/20/2021 11:45:58 AM EST [facility] Name Value Range Interpretation Code Description Data Arabella rce(s) Supporting Document(s) Progress Notes [facility] LMYMXj8cIzNPWgNg02/TLRqzHEEsc4YbZFobWQb8ZIinWWDeI6WmXLZ1nA6zNNN3AHoVAeUtEjNdTMVv lbm [file] Qh7XWsO4ZZWENuWvMK3EHOb= ID Date Data Source [id number] 06/19/2021 03:46:37 PM EST [facility] Name Value Range Interpretation Code Description Data Arabella rce(s) Supporting Document(s) Progress Notes [facility] KHJRCr1xPgXJIxLv99/DJFcdHTSsw9OdOYviFSu3BWreYVNuG4DxUTL1iH3wFIO5VUyAScXuCwRyZVWa lbm [file] KSmyIYRfLhZjBA7FZn8YPfX4CIQ8aGSxIb4XEtMeFIRKHbAbKV7AIQo= ID Date Data Source [id number] 06/19/2021 02:31:21 PM EST [facility] Name Value Range Interpretation Code Description Data Arabella rce(s) Supporting Document(s) Progress Notes [facility] LQZYPf0yScGGAoVb02/WCHrnZEOyl8NjOCsiPZo0SKkaKRFvV3WxJCR9tN4gJOJ2PLxDBvUvZuImTGZh lbm [file] JhLSZtVp4bXVXFOo5+NVanoXMsvAjjQZFDSlU9AGm3VHecWDXKNy1P ID Date Data Source [id number] 06/18/2021 05:42:44 PM EST [facility] Name Value Range Interpretation Code Description Data Arabella rce(s) Supporting Document(s) Nursing Note [facility] EIDGQk4tEiIUBxRp25/CLGbvVNRlg0HiZBffWGb5MGupVKYlZ9OfXFT9lQ3qUVP5FCdTGrFaAbCxQYCr lbm ExVckQCoNvOOEsUocVGmRzTSckPtrqtTArKS6AdLK1BXJxY19pFINjMHVrC3ZkYQXxENR+Ye8TSGVucG WjCB7VRkiC8Xzga1b1DD2f4Z/qSbhpnXmKediuHLGpP2VpRjuC5xCqkisIu0TmgB8Q8c22p4GR8t4Rh+ ZdYWX3HXmh72r3rDpi6PGN/3yFUZYKIaD+0H1tJpUv YPk1LSs1NK4UtziqzPUaIMOaL6YBpujalotcmWnSn8GX7nu3dQgJftAj5KGkweIUP6qa1p6AxtVwgWqP 4HUOp+8EVOmA/VjCi7DEeE0VGfukUN0+Pn8O+ZnELhc2RcVdIuV2qIqEbHlv3G2E0xPxD3sIDwc7pkQI GTeZ9P7nxlfCZM7rNCn6oUEBfybvkOYqP/8tZuj1lr BZ0RW9LOgDjoyxTtdxqm+6ADOgRWDaNTiIkpaMMbAzORjrVQNnBDWycxxC19NlfjJU+4e5uvWfcrJmRd iDvzXi2/m3kuAs3utCgQvZ5OAAAIW6MIPCLz1bkykX1MEPMewvFqb3++CETFd5SAMd7sa/GG9mkN/dz8 udM6c5e4yLiZH7y63U/Uy0TXei2U5UMQJTcqub/oRf ykOAgw56aCEoV1RjDpKocZ+/ERSmZm5G+RgLo89H6oKClOl1k9JG+yMhTz7EYOdZgjrmcxbsaPVlqE4L +8402O+tu3DPwOFsuXmwGd1ShlnTdgYwvGGvMGWs3Ym/CH3X23GG2dhbAe/Me/zyljlz/jwjo4mWdmh9 yLTxWkYREbijFtGK21lIBTdgd0HF0+ksvqPbtf1gcf mO/mdeYQAY7blTgkkzoWMrX4kVIO506ufnCb0/oK2Pzx+JgRXVHJfgaQb9XQ2aJdY62Wz/j3PncuiM/a amqCFdrwUhbIGlzvuF2C0kbWU/RQB5rGBbXMOBycrAo4g44crfO+tIQvwQaQPE7/6lMfvt/BGoKkPMJe León+rJGWU8mtKrirNGMv6j/JsMB9TpiBh8AdkXDxTw [file] MDAwMDAxOTMwMyAwMDAwMCBuDQowMDAwMDIwNzQxID PiNBNvZJ9PNwDpMAMwMoY8HRIeEKMkJHOorz1KCZRuQMEoEXn3MfIoMEJuSTZpBUh8mvUprOSyLSs8YS 4DO9JwffQiPsXDIe7Kf621POE2QUQuJz3GB4neIo4xNXHhJCAASr4UROe4ZSOhBaOtO0EgHxQbY1I4YV iaZzF1WkO1KoNtIwF0LZE+RJehNLDjJDUiTSR7XYCa VYjmZAO9JXObVUxtJeB8YNWpXS2oATKCTg8+KYjgdFSrzLaeDFGIFuBrQhHgKDdzGSBSEo8U ID Date Data Source [id number] 06/18/2021 03:51:43 PM EST [facility] Name Value Range Interpretation Code Description Data Arabella rce(s) Supporting Document(s) Progress Notes [facility] YAUHHc3fRmUVUvJv88/FNGtuORVha4EgJRtvVBd7OUofKYKxP4VgTES1tA0mHBQ4UZbHPqWpRrJkYFXx lbm [file] KjUi3lUSTGHn8+PIivoMVqnRqvADKXEaS2PDJ2QZuoHHQRQn1M ID Date Data Source [id number] 06/18/2021 02:56:01 PM EST [facility] Name Value Range Interpretation Code Description Data Arabella rce(s) Supporting Document(s) Care Plan [facility] EYSIKc4yXoJTQpRr97/ACJwmHYDau4AiQDlwQYh0JXvuVQAvW5AvPNJ7vM9tPCC5XSlUDfMtImYnUFSi lbm [file] OGUxYWIyYjhhMzljMDE+EM8pYDh+Uk7Cl3DefgW2yiGfXAbaVBV7XW1CWQWKH4LBBd== ID Date Data Source [id number] 06/18/2021 12:31:07 PM EST [facility] Name Value Range Interpretation Code Description Data Arabella rce(s) Supporting Document(s) Progress Notes [facility] ROKLKb4pZjLWLlUw55/CYGcmRCLzo3ObGTenIQz6JWdzNULyK6AeHAV3tV5eJAC4QEcBPjZsSzBcHXDv lbm [file] ZrfBVQZr+vsH48/Oby1kHs0utZRaLlsM/zI8/p [file] AvNJJmNqHgZOe6ACN+KP7zKAx+Ts3Re6KoxgN9egIsMLi7NOj8ZF7WPRPMY8LNJg== ID Date Data Source [id number] 06/18/2021 07:42:06 AM EST [facility] Name Value Range Interpretation Code Description Data Arabella rce(s) Supporting Document(s) Progress Notes [facility] TDEYQk2bYeIEBjDf81/YZLyySQHfv2TxCYtsTCe0JSegQPTeS1JwNLO7tI7oBPD6UFlULmFtDkEqFLGz lbm [file] AgICAgICAgICAgICAgICAgICAgICAgICAgICAgICAg ICAgICAgICAgICAgICAgICAgICAgICAgICAgICAgICAgICAgICAgDQogICAgICAgICAgICAgICAgICAg ICAgICAgICAgICAgICAgICAgICAgICAgICAgICAgICAgICAgICAgICAgICAgICAgICAgICAgICAgICAg ICAgICAgICAgICAgICAgICAgICAgDQogICAgICAgIC AgICAgICAgICAgICAgICAgICAgICAgICAgICAgICAgICAgICAgICAgICAgICAgICAgICAgICAgICAgIC AgICAgICAgICAgICAgICAgICAgICAgICAgICAgICAgDQogICAgICAgICAgICAgICAgICAgICAgICAgIC AgICAgICAgICAgICAgICAgICAgICAgICAgICAgICAg ICAgICAgICAgICAgICAgICAgICAgICAgICAgICAgICAgICAgICAgICAgDQogICAgICAgICAgICAgICAg ICAgICAgICAgICAgICAgICAgICAgICAgICAgICAgICAgICAgICAgICAgICAgICAgICAgICAgICAgICAg ICAgICAgICAgICAgICAgICAgICAgICAgDQogICAgIC AgICAgICAgICAgICAgICAgICAgICAgICAgICAgICAgICAgICAgICAgICAgICAgICAgICAgICAgICAgIC AgICAgICAgICAgICAgICAgICAgICAgICAgICAgICAgICAgDQogICAgICAgICAgICAgICAgICAgICAgIC AgICAgICAgICAgICAgICAgICAgICAgICAgICAgICAg ICAgICAgICAgICAgICAgICAgICAgICAgICAgICAgICAgICAgICAgICAgICAgDQogICAgICAgICAgICAg ICAgICAgICAgICAgICAgICAgICAgICAgICAgICAgICAgICAgICAgICAgICAgICAgICAgICAgICAgICAg ICAgICAgICAgICAgICAgICAgICAgICAgICAgDQogIC AgICAgICAgICAgICAgICAgICAgICAgICAgICAgICAgICAgICAgICAgICAgICAgICAgICAgICAgICAgIC AgICAgICAgICAgICAgICAgICAgICAgICAgICAgICAgICAgICAgDQogICAgICAgICAgICAgICAgICAgIC AgICAgICAgICAgICAgICAgICAgICAgICAgICAgICAg GHHeVDYjIZWdIOIoFJAiWDSiSRAvKVCdPJQwBIViAMLhQAHuLJBmOLMwBEQvFWFaWZu4K7cuTCHpEDXl UY4tXRo6Da9+CWgLQoVdUZI5mqNoxP5DBH0ny8ZsWRfxSHHfx7IzQNe4JW9LVGPyBYioAT5LAHbukq0Q ELCbEYXwuTEBl7hsOcRrXDH3APYkWdhaGX5LUDJlA8 glvhMsYNPuLRMTJFiaSQVYTO7ILlQqN5UkzH52YXIBTc1+VPjckbWgUlzQCbJzQEPaj1ReJNq2VU4XDH TcBhqax2CpClAqKYSKCYdlXO4XTJX9KCOwEGVfVk1PAYJoC700haSpOR4VAo6IDzZvTC7lty8ANkBcKP VoUbeAWwx2BTcgQL4XaQDhIOfExm5vtnFmhdQCr8Cq quBocOKLyitguXAlXCGDl7oqFPUMEiOhGZZnQDFsTQ5uYUQoQJI6ShGxZDYRNZ0WSFBgJBFzdUDqQFAz OGALYD1PQKeyNRW2CvzvzlFkkJDxBRyyUT8CTPEvdcBbXuAyRKLFMNa+Ld2HTM9dh0YxDDhtFVXdSF2h hz7OYCoEQnOeQ1P6hUHuU8N2FQmdOq3PXRThQEVlYv TyTRHMPJddGJ9IGM3vuyD8HO9ZuRYgMTQfOHPilMJeLFw7E39doDNvEJjqQL4BSSQ+Mau+Jl5SHUGqGK IlRLTnFpBaYFVFXeErT3JqG1EWb5JzA1AzRQ16cKllfgHjSSypZK3VNN5dNVEkNPYRHG8WdXUtyV9aix YsSxMoFBANYiGuI34tsCQzBDMmGWGvXEEzIf8NBUOy W2DgqrHyxDsjhvXkUKEvWJAQXL2RTNmqsgZkaZFzwMlaDO71gXpzFS3WNl9YXfWyRF2dlt4HxGHeWe9G RXPdZP8XQKGhFIJrVBRnEBQ1UEFcRaGuZGraHZGtCVKhBPD4QXOvZLJtXT4UGrYmENMzLwZ5FYOlFGEe VWCeln9KZDUhWQBuEfWaAGFzPLGbYPRoKIxnWYRuGB YaGIV4SKGdIDVfQS6ICbDwNTGaAZVjCkLnUGHtIZMgev1PUFDvTIXhSxX8UNHjKFVcDFHcTVvfHORxCM Q0AJD5KMFgFCOvZH1KCnQuMPDnKEOxCBEpZKLaJUEkzp8MRCTkNDLqWwSgCLXuDTAhRTXjFXjdXJHxRN W2PdGjMLWrIYUjPW0PRwLhOQMmQKNhJZLfMQHvLIXh ao1WHGQhOOGnBdJ9XpXdRYXwXQEfYDwwBFMaWUO7XFIbOEBzGFPtMN2TAdYqGBOsGSy6LcIoFFBoAIHe by9YNIPbBKSwWWP8EBFvAIVjPKEiCCwfUHQqJSF4MXMwIQVhHNQmZA6QAwLmHZVlRQieTABwJFDrBOZv qw3MHEYsHHDqKUU6WGHxCOTwOTHlLTswEHXdHYQmRm TiBGAdFCPqBS1MOjEuCNYkPMV2MjCkKFUbUNFrwe1VKQTcNXMrXukhGkDdCDOfGGTzMRhiAXKyCSQ2EU D5TTDmIJIcLL8TWkNzUPIjMcFcELpwYAMpFPWrtu7VEVGyCPScLYMvGSXyYYEiJCZsZVqxLPLgGVK0Up J7KEBmIGFxTS9GSvKlAEGiCbz0JANyRZTvUMTslv3K XQTvRZTnAJkgOdRrVSRdXQLnUThtHNUjCGIkGIH7XWGcHWUfHC9TThJdJWXvUdGfUuCzZFHiVJXpbk4W XTMhKONlXJBcKTLyQIRjFMEoBVcfCOIqTKSvIXdgENLlONVpFC7UHnXzIZYnXfZwQYUwKMJqQVMafb5Z HTVtJUOmMuZ7PVIyYTDhWXOlCShrNPFnAEJkGRL5GP RwWGRrOC8DFoWdMZseBHBPUhr1GDepA8r0QJXsSA9VN7Cti9AlIzIlUXKOVBkwRN6hdpDmZCOuIk4AL4 nWMzusDXL0GDS7SpC9R3QhWEYmFGv0WCDfVIpjXCoeAuhsLg3nMSOqSZm3PoItDMUwK8Z1EFCfDLHeKa PdGEOyNGJqBUI6CyMkRR4FXi4RLnP2QCC6dTGiVk5YXqW7MeaBDqNzQV2BJYd= ID Date Data Source [id number] 06/18/2021 07:41:41 AM EST [facility] Name Value Range Interpretation Code Description Data Arabella rce(s) Supporting Document(s) Progress Notes [facility] WLPNLh0dGtXCDtHi08/BJTdtMHDrp4DrERfxDWs5FLirMHRyO4QyVFS0kI3wWUL4WExIRvGnGvLyPAAn lbm [file] AgICAgICAgICAgICAgICAgICAgICAgICAgICAgICAgICAgICAgICAgICAgICAgICAgICAgICAgICAgIC AgICAgICAgICANCiAgICAgICAgICAgICAgICAgICAg ICAgICAgICAgICAgICAgICAgICAgICAgICAgICAgICAgICAgICAgICAgICAgICAgICAgICAgICAgICAg ICAgICAgICAgICAgICAgICAgICANCiAgICAgICAgICAgICAgICAgICAgICAgICAgICAgICAgICAgICAg ICAgICAgICAgICAgICAgICAgICAgICAgICAgICAgIC AgICAgICAgICAgICAgICAgICAgICAgICAgICAgICANCiAgICAgICAgICAgICAgICAgICAgICAgICAgIC AgICAgICAgICAgICAgICAgICAgICAgICAgICAgICAgICAgICAgICAgICAgICAgICAgICAgICAgICAgIC AgICAgICAgICAgICANCiAgICAgICAgICAgICAgICAg ICAgICAgICAgICAgICAgICAgICAgICAgICAgICAgICAgICAgICAgICAgICAgICAgICAgICAgICAgICAg ICAgICAgICAgICAgICAgICAgICAgICANCiAgICAgICAgICAgICAgICAgICAgICAgICAgICAgICAgICAg ICAgICAgICAgICAgICAgICAgICAgICAgICAgICAgIC AgICAgICAgICAgICAgICAgICAgICAgICAgICAgICAgICANCiAgICAgICAgICAgICAgICAgICAgICAgIC AgICAgICAgICAgICAgICAgICAgICAgICAgICAgICAgICAgICAgICAgICAgICAgICAgICAgICAgICAgIC AgICAgICAgICAgICAgICANCiAgICAgICAgICAgICAg ICAgICAgICAgICAgICAgICAgICAgICAgICAgICAgICAgICAgICAgICAgICAgICAgICAgICAgICAgICAg ICAgICAgICAgICAgICAgICAgICAgICAgICANCiAgICAgICAgICAgICAgICAgICAgICAgICAgICAgICAg ICAgICAgICAgICAgICAgICAgICAgICAgICAgICAgIC AgICAgICAgICAgICAgICAgICAgICAgICAgICAgICAgICAgICANCiAgICAgICAgICAgICAgICAgICAgIC AgICAgICAgICAgICAgICAgICAgICAgICAgICAgICAgICAgICAgICAgICAgICAgICAgICAgICAgICAgIC AgICAgICAgICAgICAgICAgICANCjw/tKYvX0lulQQo vqA0T9dhCa3RQx4SQL6eb6RgFTCaUPpfhvTeRotMIsDeODSlZnwLBgy0DZgyEN2FyXGkZ0QlT7TiCIbx JP7ZLXLkBEOskMTvBSPvAHSuJgJ9MXUjPVjqCJ8YpLHtQZqjHSRcYNNyEsCyGXNkGO6MOIAtN123bnFz Kk4PQw6UXbYcKN7tck6BNrMcLDQoRazINqt9TCvuUD 9NePGdmVFpSjVoJXFJZpEkE7rhu2QiWjYtGIDTZKqpID5Ls6RxhUUpZBk+Ev0YHF0az4QzMGlzInFnIN 7kuy9RGCmMGrLpS3KxkYjwTNKfi6ukRAIvKS2ioIAfXGJ8GKRxdossaQzgJKB1fsojWSNEBRRalRFnLT 42AhDxJbMlZGN9NEMvAT9pACibMU1TSXJ7REnwEUVe IYExI7hOZaQoJAkgTXPicIocUM7ARmEoV7SdcjHjuGQaNJYaCRJILd3+FSlpnhKlQjwAKuI8XABcu9Ms MEt6TW7NTKDvLEwcUJ9KDEWieI9iUVgxGB5GKkTeNrNoCOPBTpNcN71piEKmZTn4X3RjYhPwVXAzMzgd ZXMgPDwvTmFtZXMgWyBdDQogID4+ID4+NSnuSH5SNG ecevRnUMEmPx5PKWRcCXFqFM3lMUHgIGPmN2G1oNlpEKDXYnMlE1wwlmchKI0lAVGgU937wFrlosBgUL T1DXTsXw2IYRZyZHF7MWIrlSUmJzKyCSSPJZatGY2FzYQfMBU1dH0aYTgwKGEdKLMqA7jVJnEmvKnzAW 51bGwgbnVsbCBdDQo+Bw3MGC1yb1UbFNa0udWnELoj CTD9NIdxNAIaPVByKAVkYKC2GGW1HVHNNzTpACFwOJEoALzhXXYpGBGgtz2CVAKyJOMbYEkpBPIgPRNw MOFcQVyhJKMgHSG3PqLeMGAlLVHwZP5PXjCyLUYrMADbXYyhWDHkOUDyzw0EOJVlVKXaAnK6ZlQzQOPb TAKlHKhhSQRmSCChTqazMMXeLTOuQW1APgUrVAPfPY KfABZrEIBiUKUonz1DTILmJNVpNGKmLSUsFOYpPIMmVNqzCKCgDZZ0KGn3UYGwYAJePL8CAdOeCUYuJL N2KtgeUIJlZWNynj9IPGReRKTyWki4BsBoJTZiZALbEZcpFIEsGIS8WCAxEGRxTBPxVI9XWzVoZMIfCZ dzJmRcVCTnIXIukt2LBVFgETUfABHyYfMkCCGyCDQk IUsaSURjNAK4GUSfVDPxLYQyRB4SCaFcHGCqYCcuJfFbNCYgJOKofo8PRIEiIDUcFDR5HwYgVRTzXQZc ILajMWTfDKB3BEE5EKToSPClYC8ZQhDxZISxFlZ6SAMlGFZcARBdfu0DRAFlAITbEso7WNVtWGPeODPp JEsdHUKnSTA1EyT0YWGsWHTqAH7YTnSjSXGpYfb8TW ZsNSQeRDEcpi6QUBBqDQBhIYF2RpAcZULuRUZuQUorWKYuISP5GUG8EJAqLMCeKC2HPxOeWMDqJbj2Nz MyXAIeUZLpfl4XNCSkMHThSBR9OdRxIFCaKWWpWRajJWVcWLY2OBPaVBAvMWWxML4MPvXiORTsMrLyFu GlEIRnUHOpuv3XJKXcOGJyMHf8YSKrPONxJTArFJeo QLSuTVD2VLw3PYGqXKLaPQ9RVvNmYVEwCsB9HBFuBJLlINCuhd5CEZEuUDGhKXG7FQBcAMJrHQEiCFmz JBAuCQT8Znv2TTQcVBSgNJ8LGaLjPDEgVaQmXwUkSTWaWRIiaz2VECChRJIpCppoBnFtGLNgORYzLVfp RHNhZPQ9Oci1DWXfHVLaQY1PAgNtUGWnFxs0FamsQO UxJLIotp9GwRBujCneih4WLGlZJh8ChNmrWXX7EEtsEe3ryVTaNvWaVKZJDm4NoqEiVHGbFJRSONztOA ZuBPl7FNKoMQjeSpRnORXdHwmjP0HoBiuxPCPbZGRbHZRjSwN1Jvb6IwJ5NBOrB3W7SoIrRJAxWdW7Wc T5CzAjCMExNBM+GU1kQXi+Lt8Aw5HtmmZ1tgPxGUupGPP0LX1VEZLFP6DSMs== ID Date Data Source [id number] 06/18/2021 07:34:15 AM EST [facility] Name Value Range Interpretation Code Description Data Arabella rce(s) Supporting Document(s) Progress Notes [facility] UPUGLa4jWuPZAhJc05/DCDnuXURhs1UvLGllTBh1DHpiKTXiK0DhUQW4gR4tLQN3CTkDRhOnFnUrYMUa lbm [file] QyAzIW9PLq3USwF7FPX4oKSzXw5JAuO8UmAYHaIoLH6XNTe= ID Date Data Source [id number] 06/18/2021 06:27:38 AM EST [facility] Name Value Range Interpretation Code Description Data Arabella rce(s) Supporting Document(s) Nursing Note [facility] FWPJNu0pErTSKxYe98/XIOuvZEJxi4PtGLhdPTg8BXzcLWIbK6HfHGS4gC3lQCL8PHnHRhUkBhZsOEDt lbm [file] NjU+LM1bNMm+Cz7Nf9PvcyX0fgJbPLraBBHkWU3ZREDXF4NMCs== ID Date Data Source [id number] 06/18/2021 06:05:00 AM EST [facility] Name Value Range Interpretation Code Description Data Arabella rce(s) Supporting Document(s) Phosphorus 3.0 mg/dl 2.5-4.9 Normal (applies to non-numeric resul ts) [facility] The above 1 analytes were performed by [facility] [id number] [facility], ,[place] [id number] ID Date Data Source [id number] 06/18/2021 05:51:00 AM [facility] Name Value Range Interpretation Code Description Data Arabella rce(s) Supporting Document(s) Magnesium 2.1 mg/dl 1.6-2.6 Normal (applies to non-numeric resul ts) [facility] The above 1 analytes were performed by [facility] [id number] [facility], ,[place] [address] ID Date Data Source [id number] 06/18/2021 05:51:00 AM [facility] Name Value Range Interpretation Code Description Data Arabella rce(s) Supporting Document(s) AST 14 IU/L 15-37 Below low normal [facility] Sulfasalazine and sulfapyridine have the potential to falsely depressAspartate Aminotransferase results. Baseline values before medication administration are recommended. ALT 35 IU/L 13-56 Normal (applies to non-numeric resul ts) [facility] Sulfasalazine and sulfapyridine have the potential to falsely depressAlanine Aminotransferase results. Baseline values before medication administration are recommended. Alkaline Phosphatase 82 mIU/ml 50-136 Normal (applies to non-num madiha results) [facility] Total Bilirubin 0.30 mg/dl 0.20-1.00 Normal (applies to non-numeric results) [facility] Blood Urea Nitrogen 9 mg/dl 7-18 Normal (applies to non-nume ny results) [facility] Creatinine 0.70 mg/dl 0.51-0.95 Normal (applies to non-numeric resul ts) [facility] N-Acetylcysteine (NAC) and Metamizole em ve the potential to falselydepress Creatinine results. Baseline values before medication adminstration are recommended. Patients undergoing treatment with phenindione will have falselydepressed results. Patients on phenindione therapy should be tested with an alternativeCREA method.Toxic levels of acetaminophen may lead to falsely depressed results forpatient samples. Glomerular Filtration Rate >90.00 mL/min/1.73m2 [facility] GFR Reference Ranges:Normal Function or Mild Renal Disease,if clinically at risk:>or= 60Moderately decreased:30 - 59Severely decreased:15 - 29Renal Failure:<15 Please note that the MDRD equation requires an additional adjustment forAfrican-Americans (multiply the GFR result by 1.210).Glomarular Filtration Rate (GFR) is estimated based on the MDRDequation, which assumes a steady state for creatinine (Yaneli Int Med 139/2 137-149, 2002), as recommended by the Nationaldney Disease Education Program in conjunction with the National Institutes of Health and the National KidneyFoundation. The Cropsey method used in calculating this result is traceable to IDMS standards. Glucose 111 mg/dl 70-110 Above high normal [facility] Sulfasalazine has the potential to false ly depress Glucose results. Sulfapyridine has the potential to falsely elevate Glucose results. Baseline values before medication administration are recommended. Calcium 8.2 mg/dl 8.5-10.1 Below low normal [facility] Total Protein 6.2 g/dl 6.4-8.2 Below low normal [facility] Albumin 2.2 g/dl 3.4-5.0 Below low normal [facility] Sodium 137 mEq/L 136-145 Normal (applies to non-numeric resul ts) [facility] Potassium 3.9 mEq/L 3.5-5.1 Normal (applies to non-numeric resul ts) [facility] Chloride 106.0 mEq/L 98.0-107.0 Normal (applies to non-numeric resu lts) [facility] Anion Gap 7.2 [facility] Carbon Dioxide 27.7 mMol/L 21.0-32.0 Normal (applies to non-numeric results) [facility] The above 16 analytes were performed by [facility] [id number], ,[place] [address] ID Date Data Source [id number] 06/18/2021 01:45:35 AM EST [facility] Name Value Range Interpretation Code Description Data Arabella rce(s) Supporting Document(s) Care Plan [facility] IRAUUk5gGgELUsKn25/ZHVbqJDAub0JtVHgeJSq2CKawBNUsV7TbYCI2jC0gHZA8SGsIEbQnFqAsIVMj [facility] [file] O1IHWtIcBdKGE4DCZaEeEpIvN8YCe9XW6oZSMIZs5+AOirlBReoAiyBRQJKxIzGVl7HRptHXMNKd1X ID Date Data Source [id number] 06/17/2021 06:56:17 PM EST [facility] Name Value Range Interpretation Code Description Data Arabella rce(s) Supporting Document(s) Nursing Note [facility] CFKNTd1zIwHLVcBb40/IXOfjNZNyt1TwZOdmFKv4BQgnRYImI3EiDVV0nM6vQYZ2UWgMTaVfCsDrTNM1 lbm NeRoyRFvDeSXJxOptJIsUaSJweNsgreFVoUQ5AyLO3ZUYqG13qZVDgMOVvV6WiUFUqHFh+Zj0MFDSwnF ClOM8XFvkW2XvuS9mgQI+ftP/uRlaEoSTNx9nXRHthPU6Bj9vrEt+PupNTI4f/igoxu6Y2qy7iBmJYoX [facility]/Lg47b7bxg9FZM4+u8jJQXLLYg/zFqjtwktmR2X [file] J9IgShSHXfYpIwXGSvBL6hCNLTBk0+MDarkMSboSlgTKXXYuOlIPJ1RLueYXGXHj5R ID Date Data Source [id number] 06/17/2021 03:56:43 PM EST [facility] Name Value Range Interpretation Code Description Data Arabella rce(s) Supporting Document(s) Progress Notes [facility] MAJGZx2vLfBGPnMa37/YCOekMMVzb9WwVNmgKAm6GLdiTQYzC5QgWWT5nB4zQFG4SDwXPdNtTfEcTOL4 lbm [file] o= ID Date Data Source [id number] 06/17/2021 12:31:39 PM EST [facility] Name Value Range Interpretation Code Description Data Arabella rce(s) Supporting Document(s) Care Plan [facility] OHZHNa2bPjHYZvSh76/KJNovENYtr1HvWQqtPIx8NRhvTGBjJ8JiKQL0uU3zRLH4JTfWHiQvObCnZTK3 lbm [file] [employer]+9KkIRjqAAJxX4mUUu3+33/5DQAfjTSJui1B378 [file] ICAgICAgICAgICAgICAgICAgICAgICAgICAgICAgIC AgICAgICAgICAgICAgICAgICAgICAgICAgICAgICAgICAgICANCiAgICAgICAgICAgICAgICAgICAgIC AgICAgICAgICAgICAgICAgICAgICAgICAgICAgICAgICAgICAgICAgICAgICAgICAgICAgICAgICAgIC AgICAgICAgICAgICAgICAgICANCiAgICAgICAgICAg ICAgICAgICAgICAgICAgICAgICAgICAgICAgICAgICAgICAgICAgICAgICAgICAgICAgICAgICAgICAg ICAgICAgICAgICAgICAgICAgICAgICAgICAgICANCiAgICAgICAgICAgICAgICAgICAgICAgICAgICAg ICAgICAgICAgICAgICAgICAgICAgICAgICAgICAgIC AgICAgICAgICAgICAgICAgICAgICAgICAgICAgICAgICAgICAgICANCiAgICAgICAgICAgICAgICAgIC AgICAgICAgICAgICAgICAgICAgICAgICAgICAgICAgICAgICAgICAgICAgICAgICAgICAgICAgICAgIC AgICAgICAgICAgICAgICAgICAgICANCiAgICAgICAg ICAgICAgICAgICAgICAgICAgICAgICAgICAgICAgICAgICAgICAgICAgICAgICAgICAgICAgICAgICAg ICAgICAgICAgICAgICAgICAgICAgICAgICAgICAgICANCiAgICAgICAgICAgICAgICAgICAgICAgICAg ICAgICAgICAgICAgICAgICAgICAgICAgICAgICAgIC AgICAgICAgICAgICAgICAgICAgICAgICAgICAgICAgICAgICAgICAgICANCiAgICAgICAgICAgICAgIC AgICAgICAgICAgICAgICAgICAgICAgICAgICAgICAgICAgICAgICAgICAgICAgICAgICAgICAgICAgIC AgICAgICAgICAgICAgICAgICAgICAgICANCiAgICAg ICAgICAgICAgICAgICAgICAgICAgICAgICAgICAgICAgICAgICAgICAgICAgICAgICAgICAgICAgICAg ICAgICAgICAgICAgICAgICAgICAgICAgICAgICAgICAgICANCiAgICAgICAgICAgICAgICAgICAgICAg ICAgICAgICAgICAgICAgICAgICAgICAgICAgICAgIC AgICAgICAgICAgICAgICAgICAgICAgICAgICAgICAgICAgICAgICAgICAgICANCjw/uNFkT1eqnRDblg T8U6nlCu6GEn5KII0us2ReGESgUEpqyhQlOarDHaIxTJRjXwyINqe5PZqvNL8NkGKvM1NpS4IfGDbvVK 2DUDCrRIHuhSTkKVRmQCZpFjJ2PGJbUUuzRA7NzOTr SJcxECHiECCkZuVfJNGaAS0BPKTuM215lsCyOs1YBk5OGzSzTS7ugn3FGgeiPMElKjrZJiz6DLhhDN4N fIRhtTWjWLQqMPPDCvVuK1jkl4XnWwsxWAHLMUdoGE1Xw4ZktKKkNEe+Yt7CRG9df6RmCTneMEHeOA9d kb8DFWsJGgIjF1YuwPzqIVVrdoLxHBtfqbSphEMDHI JyQDWnl05lhnpuDd8qQCEgJALvXU2gVUYyMSYyAzUlWMPYQO1PBKWyJPOpvOIpMUHyCXXTJB1WRJntKI B4EgqhxzMjhIAbATqcLX9SVGFxxlAkHfdePOVEXSb+Wz6KXH1kp6WpBDwtZVTfMO7xng1WATqCWnNhZ5 G9lKOpI4L4ZEfqZr9JCAAgLLUsUtPeVBRCWDayGX4D LK0refG3YM9XoRQzHIRkTJKnkEKfEKa6M59hgHCsAAqnVY2DGWA+Mau+Rz8GBOLpNJOvUSFcCgKeIOXH GaJiW4InR2VRv9MuT7ZmRV33hDtougQzELmxPJ2JML4zRJJaQPPMKE7FpWJbkL7afmFnJzVaJSEYAzFp O80bkVOqRBRtMCA5GLJoGn2RIPGiM0VirzFaxQarpg TgJRGsNVNSAS5UOFhabtLumIRekTddZP79mVzmXB2IUj4ZCuYnZS6klb8VkNFnLu6YSDVuOR3TTBNyFE ZvPQBbURJ5JVZdUpWnQCnuNHWgGRXnFQO7UENtAHRrLD8BOcVwEWQtBfG0MkNeVPDnPZOimb1TQSQwIQ LnXqM1ZgLmOAMiSJGmQSijKUMzHXVzLHV7CWByKBPh YY2JRuWaUXMzZVYjRHZpZFGuICPvtv7YPYKiQTCxZjU2RmXwYHMnOKXePCptPVEzGHOyRGL9QLTxOUPw ED0OMwQnOFLnPXZmMxiqORPcTZXiyy8NQVEtNXNzFFP7QlXqFLAgUCLaGLycKYFuXCV9Yod5LGYdRRJf XW2AEtCyYPVgZWA7CkQqGNWfQSLrev9IHNFaIBEoPL KrUdYzMPAxQXPgMZozABXpATF9YrYwVVCqCDJxJP3JRrYrCIJdTFU5XDGdLHHwNFPkvr4MSMCoXQOwSJ W1LvSuEPInMRPiHNqgQRBjXCA1ZCl4RBGjZDMwXW5UDfBqKYGmARv3ACznUIWmDWHdev0FFBFbAQMlZB YjCdQqPOFkTCDlTDzzJMBoIQV7XSfnMKKiLSZaRD5O EfZbIXErGyNmAZKhXFTfSGZgvo6UNEHrHKLbYKAsGzOeQMCeKEFtZMmvPJEzMRGyBMh8TCJeDUIgOD2U HjDmYYFzYgM3XUVuTHGvPGYxix8DFKUuJXRwFPYqKbUuISGfUUDrWAxfUJTwNIFrAdg3KXOrLAOaBK0I UkJlXPYjPeUzDaBhLUZjELKxad8LBKYzQSXqFsN2Qy RaSTJhDZPzWBhnYYCxYNMdAbO2ORQkPDSfDT8MPmPmUMZhVfY3EKtcGSPzFGOeqp9RmFWmvGvkqt2MJK nQRq9TvBunICFsFUlnIh9whZCfSURaSYXUTo2HpgWvRCNqMAPTADtpUORkXVh6TSwgIPEjXrHkWSNtKO fwN6E1Zbe2DHG6WLFuVSRwVnD4MWhcGtVpIoUcMgCv H4H5DSG6RSi8NKqyTLSiVMJuM3M+YA9sMJo+If0Sm6KfulW2ffQdWJhcCNHmEs3HLXGFX2STCu== ID Date Data Source [id number] 06/17/2021 06:04:57 AM EST [facility] Name Value Range Interpretation Code Description Data Arabella rce(s) Supporting Document(s) Nursing Note [facility] URQVDq5oVfRLRpCr92/FKVyhFYJmo9NiOCzuRDy3DLgnYQBcI1EsCAA8iZ6yNUZ8KDvTPaLuFgRlZLR3 lbm [file] == ID Date Data Source [id number] 06/17/2021 01:33:53 AM EST [facility] Name Value Range Interpretation Code Description Data Arabella rce(s) Supporting Document(s) Care Plan [facility] IKCWNv0mWiHUDpLj78/DMHhuAMXkr4VzXMhvKQo4ZIgtZXLiI3LgTBW6wJ9fKBB5KCpKZrJaGsEwRXB4 lbm [file] [facility]/3JYqeDEZ29G6UuJpW1AYyE00zNZjHJNvtAIBsIU7qViIRJ+Raphael/JqcOq2xrG9sLW1ONityHlmpj [file] AgICAgICAgICAgICAgICAgICAgICAgICAgICAgICAgICAgICAgICAgICAgICAgICAgICAgICAgICAgIC ANCiAgICAgICAgICAgICAgICAgICAgICAgICAgICAg ICAgICAgICAgICAgICAgICAgICAgICAgICAgICAgICAgICAgICAgICAgICAgICAgICAgICAgICAgICAg ICAgICAgICAgICANCiAgICAgICAgICAgICAgICAgICAgICAgICAgICAgICAgICAgICAgICAgICAgICAg ICAgICAgICAgICAgICAgICAgICAgICAgICAgICAgIC AgICAgICAgICAgICAgICAgICAgICANCiAgICAgICAgICAgICAgICAgICAgICAgICAgICAgICAgICAgIC AgICAgICAgICAgICAgICAgICAgICAgICAgICAgICAgICAgICAgICAgICAgICAgICAgICAgICAgICAgIC AgICANCiAgICAgICAgICAgICAgICAgICAgICAgICAg ICAgICAgICAgICAgICAgICAgICAgICAgICAgICAgICAgICAgICAgICAgICAgICAgICAgICAgICAgICAg ICAgICAgICAgICAgICANCiAgICAgICAgICAgICAgICAgICAgICAgICAgICAgICAgICAgICAgICAgICAg ICAgICAgICAgICAgICAgICAgICAgICAgICAgICAgIC AgICAgICAgICAgICAgICAgICAgICAgICANCiAgICAgICAgICAgICAgICAgICAgICAgICAgICAgICAgIC AgICAgICAgICAgICAgICAgICAgICAgICAgICAgICAgICAgICAgICAgICAgICAgICAgICAgICAgICAgIC AgICAgICANCiAgICAgICAgICAgICAgICAgICAgICAg ICAgICAgICAgICAgICAgICAgICAgICAgICAgICAgICAgICAgICAgICAgICAgICAgICAgICAgICAgICAg ICAgICAgICAgICAgICAgICANCiAgICAgICAgICAgICAgICAgICAgICAgICAgICAgICAgICAgICAgICAg ICAgICAgICAgICAgICAgICAgICAgICAgICAgICAgIC AgICAgICAgICAgICAgICAgICAgICAgICAgICANCiAgICAgICAgICAgICAgICAgICAgICAgICAgICAgIC AgICAgICAgICAgICAgICAgICAgICAgICAgICAgICAgICAgICAgICAgICAgICAgICAgICAgICAgICAgIC AgICAgICAgICANCjw/qNSfV6uboZGaluL8E2upAp6Z Qf7XIB5pz7IxWPUuYMzhahVtNrgELbIvMILrSifWHmu1EIamMC0YuPEhT7ZrW1ZjDUfhQI1HCJPjMVDa wYYoUFNgCKEuIxH2LBQyQJirAY9XxICpYAfsFURsXIKeGmSbNEDbUQ8EVKJsP254wwPbXe1ZCs1IXhQr OS0mnt9IRyWaVDLdKsoXYrg0ETkdAA3YmUJzaKJfYp GmTBCVGrPhZ2wsa3DaDlVwCYDQSEbqUL0Tf3BecJPlJQd+Ws2UXL9mj6HxVErmRuOxVK2aqy3KMJaXYw OpK9IjgZxdFLBbgmVbZLskcxDdxSBYlHzztAJmY5JexR94mXLyKNCPRaXncYMmNP21EjPhKrTpRRJ4Zv KqGJ0vNUkdML1CJZL8NGhpLUJvVZFnS6vQYfYpQIwz VKRakCnaYU2YQsMnI4WxjfYauOKaBdCxFSQKZs8+YFvmfwJgLbwVHdP6SCCtz4DyYEb5ID5UJZGmEBgq RM7KICZefM2xLKolRK5TMrVuTSMqNWCJPzLdP67tpDMoOWw5X3GePjFwWUTfFwbwIMEfSFhjSjAeNXSu WyBdDQogID4+ID4+OPbqYB0UWSzngmBtSWKgMu6DLR JvPVWeDR4hHEJmBVJxE8F4wIkdETVRUrMgO5praafdNG3mPYEpV767sZbxniMqWOOxHWCvYg2LJYDoEL Q8CUUlgEYuFbSqDQADOLzyVJ7ZhPMzYWJ0gO2nTSgqEHAoEULgY5bHKyVbkAqiJY04lOmqtdGjnPCaBH o+Xu5TPA7rr7UbXOp3gsJxSFwuGOB2SIowLAOqWCOh IYOcVZL6XDQ3SPEJQuTgNSLfIEWmGVitSYVtJVZhvc4GYCOvPLHsWyW5BIOpPDOqEDXdJMilIYTeNCR0 UESbCHYtBTFjWL0JNmLlWPExTAVlBEgaGENgNBMtay4LJSEwBPEnRcShYjUqWKYiOEYaBCxsKEQfKBXv VoE7DHFaETGlFY5VViYfGVBhPVI0NGIlCALrKOZqmz 2ATCInGFRzADjfYNGaJURdARWhZJxlINZqRDR8KaU4MUVlXVKkFR2RHaVhQADvTCS4PqeaMSLwJTXxhl 6DNHBwWAJmYuZ4KFJfMERzEVDmBTewYKXjRMV6BVM0COMxYERfWI2GVwLfFUCgFQesZGSuZPGcYJHbim 7UFCTgDLZzToE3ARLoEWVfPXWiWTsxJOViXFL0SVAc DUHmVSXaAR5CHnAtWQAlLxTjLMdxNVIqZGMzyl4RBGGuMKExZJF6ICMoAWFaRAVbPDvjSNAcEYOaGgU8 NKKoRUBdBB2DVfPjPYBmIcP2QYRxNRPdOQCyzc1YCMXjWQDoQIQ8MvFkXKTxHJVcUCgzPFJdQMZgZAy9 PNEpPROhEB8MNtUlNHGgRrVgLDDfYOKxUICeds2BFX KkOXLoWkAuJjXrOHEjDBIzAFazKDTuPHFyTlL5OIOxYLMsBH3RWcNtGDYlUoLySGWwJQWzZQEqbv8CYV OtFUIrSdeiMWXaAWLkLZLmWJerDQCmEIB6BXBiPBNmHQNrDN5YPlEfBXHmKddzBiDrWIWdGAWzci8PNI GfDZHlIsD2UZMlFORdJEGpIXqnKCRlGSK2IqWpOMNn LHPdNU7CJhFsRWBeZlcrSzPwBGRpOBEunx6HSVBkHIUsENVwAzKcHBQeYGAuXCifDLWcLCD9QBk1ZHVq QGOlMK3RDyHeCWUiYyu8MjNnEAXqWCRwpu6ZaRZutOcrmc8GQSyTEn7EdFupJAA5JZwqIt2htVDxKJZe LAGYWd1NjcLjKCVuSXLOKMhzGWUnBFRcOWKzFXCbIU z6CzFgZOTrRVA3WKG6NCI9FYntSGPxXsF5InHvZcCeCCV5BJPzBNFpY7L9UxLvZxy1YsyeU1VrMoF+IF 0gDQo+Sg9Ck5EoakK0lgCrVFdcTXy6Ve5CORVTA9VWJb== ID Date Data Source [id number] 06/16/2021 06:29:05 PM EST [facility] Name Value Range Interpretation Code Description Data Arabella rce(s) Supporting Document(s) Nursing Note [facility] JAEVXx4yWjQHHaSr39/YWCmhXMAsh5WtIWihVXz2DXonSNOoQ2ZgGDM6nP1mZLS2EYkTDlDoUeOcBXC2 lbm [file] YagiI7gcMqKGemALG5TG5JWLGMA2GRTb== ID Date Data Source [id number] 06/16/2021 05:46:27 PM EST [facility] Name Value Range Interpretation Code Description Data Arabella rce(s) Supporting Document(s) Care Plan [facility] SQXVZf9dPbWKGqAl09/ZOCmkKFWvr9InMAscJOr2WDlaIORkF0UyAUO3mX6qBWO6COmKAsZrYzWhSTD4 lbm [file] A+IT2tWNp+Da1Ys8LfpxY2ogIbAEsdIlF8Sl3JXNXRS5GIIk== ID Date Data Source [id number] 06/16/2021 05:48:00 PM EST [facility] Name Value Range Interpretation Code Description Data Arabella rce(s) Supporting Document(s) Phosphorus 3.9 mg/dl 2.5-4.9 Normal (applies to non-numeric resul ts) [facility] The above 1 analytes were performed by [facility] [id number], ,[place] [address] ID Date Data Source [id number] 06/16/2021 05:16:00 PM EST [facility] Name Value Range Interpretation Code Description Data Arabella rce(s) Supporting Document(s) Magnesium 1.8 mg/dl 1.6-2.6 Normal (applies to non-numeric resul ts) [facility] The above 1 analytes were performed by [facility] [id number], ,[place] [address] ID Date Data Source [id number] 06/16/2021 12:40:15 PM EST [facility] Name Value Range Interpretation Code Description Data Arabella rce(s) Supporting Document(s) Progress Notes [facility] VXZYJr6fQuCIKwJi37/EYOqdPPCka1RqQJglMWb1TDmoVCRlT8MeLJJ4eI3vSBS3STxZAnCzBeWdJDZ1 lbm [file] ICAgICAgICAgICAgICAgICAgICAgICAgICAgICAgICAgICAgICAgICAgICAgICAgICAgICAgICAgICAg ICAgICAgICAgICAgICAgICANCiAgICAgICAgICAgICAgICAgICAgICAgICAgICAgICAgICAgICAgICAg ICAgICAgICAgICAgICAgICAgICAgICAgICAgICAgIC AgICAgICAgICAgICAgICAgICAgICAgICAgICANCiAgICAgICAgICAgICAgICAgICAgICAgICAgICAgIC AgICAgICAgICAgICAgICAgICAgICAgICAgICAgICAgICAgICAgICAgICAgICAgICAgICAgICAgICAgIC AgICAgICAgICANCiAgICAgICAgICAgICAgICAgICAg ICAgICAgICAgICAgICAgICAgICAgICAgICAgICAgICAgICAgICAgICAgICAgICAgICAgICAgICAgICAg ICAgICAgICAgICAgICAgICAgICANCiAgICAgICAgICAgICAgICAgICAgICAgICAgICAgICAgICAgICAg ICAgICAgICAgICAgICAgICAgICAgICAgICAgICAgIC AgICAgICAgICAgICAgICAgICAgICAgICAgICAgICANCiAgICAgICAgICAgICAgICAgICAgICAgICAgIC AgICAgICAgICAgICAgICAgICAgICAgICAgICAgICAgICAgICAgICAgICAgICAgICAgICAgICAgICAgIC AgICAgICAgICAgICANCiAgICAgICAgICAgICAgICAg ICAgICAgICAgICAgICAgICAgICAgICAgICAgICAgICAgICAgICAgICAgICAgICAgICAgICAgICAgICAg ICAgICAgICAgICAgICAgICAgICAgICANCiAgICAgICAgICAgICAgICAgICAgICAgICAgICAgICAgICAg ICAgICAgICAgICAgICAgICAgICAgICAgICAgICAgIC AgICAgICAgICAgICAgICAgICAgICAgICAgICAgICAgICANCiAgICAgICAgICAgICAgICAgICAgICAgIC AgICAgICAgICAgICAgICAgICAgICAgICAgICAgICAgICAgICAgICAgICAgICAgICAgICAgICAgICAgIC AgICAgICAgICAgICAgICANCiAgICAgICAgICAgICAg ICAgICAgICAgICAgICAgICAgICAgICAgICAgICAgICAgICAgICAgICAgICAgICAgICAgICAgICAgICAg ICAgICAgICAgICAgICAgICAgICAgICAgICANCjw/zLMqR9phaLWlahU5S4skTa0IHh0NXM7nv0GiCZNx LSebxrHzXykASxGjCZDeFcrAIrd4OFmjJT0TnBNyS7 PnL1UzLZgeRS7ONZLgUUZvmCIkULXmKLBfGyT4NDLvBFdnNH4JjIGdBTvnDKJoYVMzVqOwESEoETTkZI QoLTFrQCZOAE9HXuPzE3PgsC55YNSEWr9+TIcuqjGxLpdJQmX9YZSqv7JaGCq5AR6ZAQApGjves1XgHT BpBKKJSJokOH0ENBA1TRU8LOIjDt2LOCXqR751ndRf YQ0ANp2TTgPnTI8rws5TNVQqFDYjXwoHFxx5NWsjUE1FaDAvPSoRvy7tdkZarrHWk6YogvIpnHRYwxon TG7pX7XsjVy7BPHUWSRDFH9bNWHsOTZfWT0jLQTcRTFaYfUvPJWASM8CVBXqYPCzfGBuBPCiAKNBVN1V PEvsOJS7JfmjknAtxTVgGYscBZ3SFNVmmxPdTXQuRV BSDQo+Ma6WFG6xn2VvRMp7CcHcAV3vur5SFJhGIbYdD4Y1lLVhI6X3WEndOa6EQQFaPLGeOMLsEZHZKB qbUL3SVX7djtE7SW6ApFApMTLmPILsvSKyFAz8Z13bbWZlHAbbCQ7NNUH+Mau+Jo3WZHUsRKAsDXZvQt BtZKNXBaSbE8JoB2DSy2KvO2OiJZ63gCzvbyTcXSxz BL5HTP5bPOCiSJMEGT6OkHVdiY4zsgM4HDJeBAPWKdYoW61pbRYzHEAqZUBvWFOfGg0ECLLnT3NfvhDk pLweodQbTSNjDJZNQA2PZRvouwYpvMZmdMjdMK83gIvtLL6WZv6LLiLtEH7ais4HeCFfSf1UQES4Ht3S MQJaPSWmPMYbHHH7ODPgRxEnYIxdJJKiCOZxGRT0GE BzWAObQS6HSrAeDZCnTYB0YRzaXXTmYEZcgs5WAJCpITT7LdB4IREeQGZtQUWcMItoOXCjRUPvWNI8GW RqHOHbKR2HMjPnANLqJDPdXoHtRPRvOHSece3VZRSuNSYgFnYwLMNnMRXyHCMdFPpoUGGqAOA8OjZtNG XtYBXjXW3UXmIgCIBkWJF6KEMnDHLrPLNdgm9JLIHx SQPhIVf5ZRCbPABhQALnRFlvZRQuXIU3WOVdZVHhBONiJO1MSjJsQLFfPNV5LXPrIQFqLSZdjy3IATNb ZDAnJLg6MhFiHBMqVEDaEUcyRUAiWXClEpB1LNWsHENlAH1RMaEfEFSgVWE9OSinMRLhXTEgpt2HRINs UZXhYwP1DGWrNTHrTEKiCVoeMLAdSAR2JUF9LOQtEC DqHY0QUxFgCRNbVGTeQMGrQJYrGTPali8RGCQwLSTdKIUoDEHcDNRtGJVjFKigFXUfRQI3Scb6SLKvNX BdTT8AKuRgXSTqGkkmXBNxUMVlYOOrxw5FOHTwFSNnQbWuARNhGOMmRUVsGJktOENrQAI5YKG5UXIlLH MnBM9NZxJdWBEfNwb2GOWbNMYcMVYkjc0YGWVgGAQq EPLtSOZyNZMeWNFzWBocVZUbAAO4SCQ0JBEkURGzWD8TDaEjZWTsPjswREozJJKeYOJcwg5CIUUhODEq TOq0HJFeYEGeUSSfQVjdYCXaWIHkVRT6NOJxWFIwXT6FNpOtDRRrTaPyWCxnVTHmABUvxn1SIBNqSUB5 YeLkCoNmWFJsIKFwAYyhHSMqEKApRMP9DFUgSFEgIZ 4SNoHbDVKnOMUaHvOgKIIvOBSprr2PMKCmQOE9KJYbCfHiHJPmRWCePAuwXKVxVCL3BFTgHHRnBNIkFC 1QNyWtFRArSQJ0VJKeYKRvCWYiwn5ARGLeOWJ6JIJ4OFNjQFWoPTSnBVcmIYHiDXX8RMV3TKQnODNyYC 9BXfRgMZCnSNF7IjCfFBFmDDAqad0JEOEbCLV6OWCc OKIoBTNnVCZmKBcmLJWgGMGzHoTjIFOqXYMfTM8EUyMwKSKfCNZ7VZYoTAAmPJZobb8JOZCiZUH1GOQb AuNiKINrUEKnBXkeTLTzZFQeUDS2TGCfRQGiMR6CXuDnFIExDLB3OtAzUCJfLBWohi2BOHMxLVP1KuV0 TvSlAMWtSUEeQOwaNOEnQCWwIbw8AJIoVTZeOK8TAa HeEHjvHKQYNod6VEtzZ7s6FGP3Bc3LU0Mok8IpRFFrZZXMQFnnKM5cpsXjTNBxId5XG9mDTjgoTLGzH8 N9CPb8UXr7XQz8LoeiQMYvJPOoETI5B4IpOG1oKDU0OtAaUHjyGzO3YVe5PINcXsC4SBE0BURsLROkCe GmBaBvYE2VTs5YGdK7SHS9vNQcUa3AYUXyJWLVXcHeTS9LGJz= ID Date Data Source [id number] 06/16/2021 05:17:00 PM EST [facility] Name Value Range Interpretation Code Description Data Arabella rce(s) Supporting Document(s) Pre-Albumin 13.9 mg/dl 20.0-40.0 Below low normal [facility] The above 1 analytes were performed by [facility] [address],[facility]#: [id number],[place] [address] ID Date Data Source [id number] 06/16/2021 06:21:00 AM EST [facility] Name Value Range Interpretation Code Description Data Arabella rce(s) Supporting Document(s) AST 18 IU/L 15-37 Normal (applies to non-numeric resul ts) [facility] Sulfasalazine and sulfapyridine have the potential to falsely depressAspartate Aminotransferase results. Baseline values before medication administration are recommended. ALT 48 IU/L 13-56 Normal (applies to non-numeric resul ts) [facility] Sulfasalazine and sulfapyridine have the potential to falsely depressAlanine Aminotransferase results. Baseline values before medication administration are recommended. Alkaline Phosphatase 61 mIU/ml 50-136 Normal (applies to non-num madiha results) [facility] Total Bilirubin 0.70 mg/dl 0.20-1.00 Normal (applies to non-numeric results) [facility] Blood Urea Nitrogen 6 mg/dl 7-18 Below low normal [facility] Creatinine 0.65 mg/dl 0.51-0.95 Normal (applies to non-numeric resul ts) [facility] N-Acetylcysteine (NAC) and Metamizole em ve the potential to falselydepress Creatinine results. Baseline values before medication adminstration are recommended. Patients undergoing treatment with phenindione will have falselydepressed results. Patients on phenindione therapy should be tested with an alternativeCREA method.Toxic levels of acetaminophen may lead to falsely depressed results forpatient samples. Glomerular Filtration Rate >90.00 mL/min/1.73m2 [facility] GFR Reference Ranges:Normal Function or Mild Renal [...] of Health and the National KidneyFoundation. The Cropsey method used in calculating this result is traceable to IDMS standards. Glucose 79 mg/dl 70-110 Normal (applies to non-numeric resul ts) [facility] Sulfasalazine has the potential to false ly depress Glucose results. Sulfapyridine has the potential to falsely elevate Glucose results. Baseline values before medication administration are recommended. Calcium 8.1 mg/dl 8.5-10.1 Below low normal [facility] Total Protein 5.4 g/dl 6.4-8.2 Below low normal [facility] Albumin 2.2 g/dl 3.4-5.0 Below low normal [facility] Sodium 138 mEq/L 136-145 Normal (applies to non-numeric resul ts) [facility] Potassium 3.5 mEq/L 3.5-5.1 Normal (applies to non-numeric resul ts) [facility] Chloride 106.0 mEq/L 98.0-107.0 Normal (applies to non-numeric resu lts) [facility] Anion Gap 7.0 [facility] Carbon Dioxide 28.5 mMol/L 21.0-32.0 Normal (applies to non-numeric results) [facility] The above 16 analytes were performed by [facility] [id number], ,[place] [address] ID Date Data Source [id number] 06/16/2021 05:48:00 AM EST [facility] Name Value Range Interpretation Code Description Data Arabella rce(s) Supporting Document(s) WBC 7.02 x1000/ul 4.80-10.00 Normal (applies to non-numeric re sults) [facility] RBC 3.24 x1Mil/ul 4.20-5.40 Below low normal [facility] Hemoglobin 8.9 g/dl 12.0-16.0 Below low normal [facility] Hematocrit 28.4 % 37.0-47.0 Below low normal [facility] MCV 87.7 fL 81.0-99.0 Normal (applies to non-numeric resul ts) [facility] MCH 27.5 pg 27.0-31.0 Normal (applies to non-numeric resul ts) [facility] MCHC 31.3 g/dl 32.2-37.0 Below low normal [facility] RDW 16.1 % 11.5-14.5 Above high normal [facility] Platelet Count 219 x1000/ul 130-400 Normal (applies to non-numeric results) [facility] MPV 10.5 fL 9.4-12.4 Normal (applies to non-numeric resul ts) [facility] Neutrophils 69.6 % 40.0-74.0 Normal (applies to non-numeric resu lts) [facility] Lymphocytes 16.0 % 19.0-48.[address] [facility] Monocytes 9.7 % 3.4-9.0 Above high normal [facility] Eosinophils 4.1 % 0.0-7.0 Normal (applies to non-numeric resu lts) [facility] Basophils 0.3 % 0.0-2.0 Normal (applies to non-numeric resul ts) [facility] Immature Granulocytes 0.3 % 0.0-0.5 Normal (applies to non-nu meric results) [facility] Nucleated RBCs 0.00 % 0.00-0.20 Normal (applies to non-numeric r esults) [facility] Abs. Neutrophils 4.89 x1000/ul 1.92-8.31 Normal (applies to non-numeric results) [facility] Abs. Lymphocyte 1.12 x1000/ul 1.20-3.70 Below low normal [facility] Abs. Monocytes 0.68 x1000/ul 0.14-0.97 Normal (applies to non-nu meric results) [facility] Abs. Eosinophils 0.29 x1000/ul 0.00-0.76 Normal (applie s to non-numeric results) [facility] Abs. Basophils 0.02 x1000/ul 0.00-0.22 Normal (applies to non-n umeric results) [facility] Abs. Immature Gran. 0.02 x1000/ul 0.00-0.02 Normal (appl ies to non-numeric results) [facility] Abs. Nucleated RBCs 0.00 x1000/ul 0.00-0.02 Normal (appl ies to non-numeric results) [facility] The above 24 analytes were performed by [facility] [id number] [address] ID Date Data Source [id number] 06/16/2021 04:17:40 AM EST [facility] Name Value Range Interpretation Code Description Data Arabella rce(s) Supporting Document(s) Nursing Note [facility] JJPTUn4fBnUFYrAz26/BRAtwTOTnf3RyGNwoXWu9MZoqLWOgG3TlCIB3lP0mQCD6NRlBQvVzIjQkBOH4 [facility] [file] V9Dzz2JME0I4P2PQU0Zn9vLWGWHq2+CHkpsIRpyYjgHEHKVze1MwMPOvAaUQ5KIKf= ID Date Data Source [id number] 06/16/2021 04:14:00 AM EST [facility] Name Value Range Interpretation Code Description Data Arabella rce(s) Supporting Document(s) Care Plan [facility] NDQSMk3lTfHNDtXj08/JTYqePADyy8IlZBsiMYv7NEacIGZbX3MgJFA6yT4dINM2YJtUAqHkAwWrUFD8 lbm [file] Rg0K ID Date Data Source [id number] 06/15/2021 11:18:40 PM EST [facility] Name Value Range Interpretation Code Description Data Arabella rce(s) Supporting Document(s) Progress Notes [facility] KMFYJd2vKxUUCiNk89/JEXliZJKpp0PbNUkmGMp6MAyjFPNmP6GyHSG7iH2vDOB1VGjQWrUzRuIpUCS2 lbm [file] 6KvbXiILKKFvB6auEuQlVtAVBXFVD7edv9SOqm+Jos[facility] Miguel [file] 0RQoP5LJV0uGYqYz7RQrOfQsqAFsIjZH8JJHr= ID Date Data Source [id number] 06/15/2021 08:06:52 PM EST [facility] Name Value Range Interpretation Code Description Data Arabella rce(s) Supporting Document(s) Care Plan [facility] BZKLKw9gLvODGcHq21/JNJsvPVJff6NzAIrvZMp0HAgcLKBaY9UeCDY2aL5wSFJ0PUzYZtMjBlKzLWN8 lbm [file] N0TnY0OV2iXGSPDm4+PTjsuVRgsIzjGVRUPoEwDIT7EFbuFAREFa1E ID Date Data Source [id number] 06/15/2021 02:50:21 PM EST [facility] Name Value Range Interpretation Code Description Data Arabella rce(s) Supporting Document(s) Nursing Note [facility] JRMCCt3pTwZIUbQe72/ZYHizEPYxc8WsPImdRUp8HRkcJBSfH0KdMTW5rS3pRXA6GSwMWcIkNuZjNNB3 lbm [file] BgKtCMf1PMfoEAYTPh6D ID Date Data Source [id number] 06/15/2021 09:34:41 AM EST [facility] Name Value Range Interpretation Code Description Data Arabella rce(s) Supporting Document(s) Progress Notes [facility] QIJFPy7eIfCCZxQo23/VFHxcGGLnb8QiOFitQOh2BErlGWNaQ6RbGSR2xB3iWNI6BTnAFkHdLlZqZUT4 lbm UrAfyTHmPkBYQxKnpEHlLyMEknWxzehAJdXN3WvPG2TIRdO44oBCLjRSNeT3KhRYX2IyH+Pa4XWCYkhC UxTP6KZigH3V6fu3c1JK/bDZ0Jjj4GHXQMO0K/4trx6gUDJUyY6b9SQwAM8qEn0GmcB3YtoE6LK4Vvq0 ITOQebCo0brtK7yojvMPZFjat195nFXtMWDi56tsbN Gnpt4Z9ZS+NUicup+ATvfXfVy2rA3t/RIPCAkomMzQPVT9+7+6IQ3nihWZ/jK0FTjGdvDpu2ocYSUhow 8oc1Gw499FqqkzNSJvdv6UXrnj8QqbHIQZrKngFjPvGum92JRzUAl9uwn0JdT+D7pnQsez5kTwtDGlC4 mXNXFKcTdhmm7EqZDQSZPZaSkUCSBVkLgCPw59HCZ8 [file] GyU6AYLvIyPuMCOfFLD9CfAsSR4NRl8ONsU2YOT0hLHkVc0YFBOaKJdDSkIiOI9DDZg= ID Date Data Source [id number] 06/15/2021 05:10:46 AM EST [facility] Name Value Range Interpretation Code Description Data Arabella rce(s) Supporting Document(s) Nursing Note [facility] JDXQEz1cDaVSJxRr71/CUEuwGGBfx2SmFOrvHCn2WZbfXGIyH0SiKTZ7eC4qTWZ5BLxRFaXpGhOvDVZ5 lbm VzQbdMQlPwGWJhQtmKPaUsSVdtMbonmYZoJJ3BrAD0RLEjE01vDBXmMSAnG9LmDKBkPbF+Pn6SJOSryJ NsIL5NIxaK3JloT+NGEH+f5T0rKjnSE0wR5l7aVAM1eeb6vQWeFvM23TVZrI9FAZ0Y+lyMdc0xbRp8yM BHZfMBq81i00lIfxVfwe9KdNkGNDN/sh3BydR4Nw6/ NA3brGJn2UQwCeoBoQA2AnRkLJ/cJGirjmIfhQaH2RN9QkxBfEONpQ7sf2eqZl52nI+lauQrK/YDeDOE 0o2FBjgN0Ktpi0skYZ6QcPh0sgC7g/XBIFjBPs1gJWK3bFNKwzwgBFMu5kCLaMXwfSIR3dc74fjEEKUq PkvSxqc3rS6lnvjHSK9vadCuWYnhUMBfWLbRmQQI9H 7brgiNYs99Q9gitNeBmncHCwtbha0GeF79ZaxoEreUCPbIxJ14hEEatOGrNWAoD4EqR8eNhlH1zfqPGn +tyffD/paQGeOpBAF7HpY8DWXcfJM1sNOzudu9BZBGYeWA2LlwRQk9oxwoJiU4UziyL/wEiPla6mdJ+S Mv8dtuwZg/XqQloP0Us+UcHkYD1FY82AomSjLz8Lzl X+PFPJRUOP/5zBLgFrORay0H99x1HtiLz3/D8Oz5/VkN8VK3CVr6t/yMkDVYauR2wEqRA6wmaHeBb6jG /MHpP4Jv1V/FNB/8sy2KpP01PK/QrZAJAeIxNzHoS98wwbr90K1lbgu93XVk4Rn8mfeujKg5H1w34Dhc Kp2TE6RoBO5++ro4DBdDs9a+v2MgWRjER6fz+fglyk 1VkDXi+0QN3lvyMIn34jEoCi859MV+vToIPwKlWo/T48ujQHW7MKAHZYxXPoHK6oAn8gYtvASjQIueIJ ql61Pkng4I7F1H0h6yJSA/unjGXxok9f+kfyRJHSKxwZ75CnxAetmgSEeYwFTfLRl4fWR2oiXaoW6Wqx fs3QQCYdhDpER70LFLZZVRQGI+RVmYIXJj1E5W07k9 [file] uywKtegqV3lfTrZKrF6GBQGzmYeHrsZrIEZLr65NajRwADCWXwM8qdHeEfBxMOMXENK2fau4CDbj+[facility] [file] hJMuQy1YGnRsSziTMsJxYQ6CBSv= ID Date Data Source [id number] 06/14/2021 11:04:53 PM EDT [facility] Name Value Range Interpretation Code Description Data Arabella rce(s) Supporting Document(s) Care Plan [facility] UDSNMc3iEuCGMsZt70/OEIuiIJTvf3FxRTrqTBt2GQjfLYPrZ4AmGJS0zO4wFSR1SIrOAzIpEkMgHOL1 lbm [file] MTgwOCAwMDAwMCBuDQowMDAwMDIyMjQxIDAwMDAwIG 7MGfKjDLWdIxH9JAYqILXbMYJkon5SPTJbFOFnPos9OeOcTJLjCUYaCZdzNYNySFJiIWOsLOLfXHHxRG 7JAcCcEXlyCARSUcz3DWqyB1t3NCNlJS5MG6Rjw1WoMumsQJHUOHhpTM2tpoAbANJqLn5FM0hZAkoyQC BlMdT1CNNxTCRqNcQ4ANxiAgQdUUC1FfEpVpSzXH6g YSLqASQhNkOeVBIsC3LpFWflLBSkKQK5Bgy1NiZmAhOpUcWzMX4ZLs9IPbA0CTF2nEMqFu6BScZgUSYQ VoKqOT0CJFt= ID Date Data Source [id number] 06/14/2021 07:02:22 PM EDT [facility] Name Value Range Interpretation Code Description Data Arabella rce(s) Supporting Document(s) Nursing Note [facility] QGXHJj4tXnATEnYc05/VCWthILXtc0MdFMxvUFw2ROdoSQTeA0OgJQK3pJ4mAHE8KLtMWcWiLeZnNDK7 lbm [file] RRTsNoKR5UPTj= ID Date Data Source [id number] 06/14/2021 01:09:13 PM EDT [facility] Name Value Range Interpretation Code Description Data Arabella rce(s) Supporting Document(s) Care Plan [facility] EKXUFq8mMaBYZfXm86/ODTxeRKLnw6DxCChlZCn6IEmvDLMvX2VhVKZ8oB0mWUP4GPqJSjCkNmOwBRJ8 lbm [file] [employer]+3RmQFupFVTbB2cQBh4+33/3RHMapSQYzj9O744 [file] ICAgICAgICAgICAgICAgICAgICAgICAgICAgICAgIC AgICAgICAgICAgICAgICAgICAgICAgICAgICAgICAgICAgICANCiAgICAgICAgICAgICAgICAgICAgIC AgICAgICAgICAgICAgICAgICAgICAgICAgICAgICAgICAgICAgICAgICAgICAgICAgICAgICAgICAgIC AgICAgICAgICAgICAgICAgICANCiAgICAgICAgICAg ICAgICAgICAgICAgICAgICAgICAgICAgICAgICAgICAgICAgICAgICAgICAgICAgICAgICAgICAgICAg ICAgICAgICAgICAgICAgICAgICAgICAgICAgICANCiAgICAgICAgICAgICAgICAgICAgICAgICAgICAg ICAgICAgICAgICAgICAgICAgICAgICAgICAgICAgIC AgICAgICAgICAgICAgICAgICAgICAgICAgICAgICAgICAgICAgICANCiAgICAgICAgICAgICAgICAgIC AgICAgICAgICAgICAgICAgICAgICAgICAgICAgICAgICAgICAgICAgICAgICAgICAgICAgICAgICAgIC AgICAgICAgICAgICAgICAgICAgICANCiAgICAgICAg ICAgICAgICAgICAgICAgICAgICAgICAgICAgICAgICAgICAgICAgICAgICAgICAgICAgICAgICAgICAg ICAgICAgICAgICAgICAgICAgICAgICAgICAgICAgICANCiAgICAgICAgICAgICAgICAgICAgICAgICAg ICAgICAgICAgICAgICAgICAgICAgICAgICAgICAgIC AgICAgICAgICAgICAgICAgICAgICAgICAgICAgICAgICAgICAgICAgICANCiAgICAgICAgICAgICAgIC AgICAgICAgICAgICAgICAgICAgICAgICAgICAgICAgICAgICAgICAgICAgICAgICAgICAgICAgICAgIC AgICAgICAgICAgICAgICAgICAgICAgICANCiAgICAg ICAgICAgICAgICAgICAgICAgICAgICAgICAgICAgICAgICAgICAgICAgICAgICAgICAgICAgICAgICAg ICAgICAgICAgICAgICAgICAgICAgICAgICAgICAgICAgICANCiAgICAgICAgICAgICAgICAgICAgICAg ICAgICAgICAgICAgICAgICAgICAgICAgICAgICAgIC AgICAgICAgICAgICAgICAgICAgICAgICAgICAgICAgICAgICAgICAgICAgICANCjw/fZNpP5jzxQFkvo C4M7elEg4NVa5OBM7au0EcVOJkBNzxepLzUzyYXwKlIFJvOorOYsr1BFzbLY1HkOGaJ9UyC9DqUBumBP 4QXRUlLYMbiFDmPPUgXWCiDjN6LTPbYPoeSQ8DwNCn OXltGCNqIBFeOgYpBVOyZQ0IVURkZ837joLhEq7LFp4RObJkIE2dha5CMmjkWLAvOvvXGxb0ETjoVQ7I kNRmgUDzLKVmCARXBjLkS4env1BzPpcfHZKLKDtiKW5Uq5MwrSJhSNf+Iv7BRX2cj0PwRDynPHIpSK2z qt5GGZgEZwSqX4GlfLlsHMGshpHsRJfpafDvbRQDcB SkU7tjWXV9kHWzSZNNRYM7ICIrQrLaZeEwJUQmDUegGXSDSGsGXuIpO9Pnx6KgRtK4CTOyAoXqDGemYC PuLdN2CU88jZotXX2MPOMxUIYmPY86HWW9ITSzGu8JIc0CGtJoQC2bea4VArqtAAJeDgtYVfe5ORfbNL 4MbBBhW5ScjTZqg4yEVqUfO8LXAFI3FDJeWl2GCHUm AxTfTRHtBAmpPA5xALCmVPNKlYvltjT9SS6UFE7pkjTrJX5AKxBrYq2lEa7YNxLsB0OvC9DlXREvJWJI QMlhIU2HTRedWW7eKD6Df0NKxMYjcZ5chf2JMRZtSSYiNpjvub7ZYkqhR0R9iRnbLHWeNregNVTUTMqq LD7XBIDuYEU2TNWmTlIqADFDTsTtH08eCY0XC1Ecg1 5uDdP3EORfJhZdQRutET21lPkvbjYkpLGqpZipJO1YKc9+DQplbmRvYmoNCnhyZWYNCjAgMzANCjAwMD BzKXZdHGGqDsM4KkUtQx9LNMTvKMKrPUOpPxCoUQHpVRVfUYpmXVCeNBGdKSAtMJAoMEGtAR4FGgUkDA AaZcT6AoIgVZQjVUXjhz8AGGAgDOBdEAZ2KnRdIXDu TOEgRHgnQMVtLULoKNUuWDPmXTKvRS4TWbMhQGGwMRYkZMYzDODtHVOhys7CKIDrSORxEjHkQTPzXRHo TWOpDInwHZAoSSEiNrJ9TQByDTBtJI2MPkXxCNHjLYEtCJSgDYIbNHTlxn0GKNMlKHVpEFQ5QmLoXYBt BDDqUGpvFNMbVQE8UDkdTXOaOIUzWU5TIaZcCKWjGC U1SgOuODXpJCEfrd9EQHDbHYKhZKwtPHQdPHYzOVAhUWrcAOIkGXB0WKTqKNLcGJRkZK1UAvNhWZAxCL ttRpZtDHWmOBJpkp8TPOLeUAMtILT1RRTiJLMfMKKzAZlyHBLdRAK8Bug5HEXhCGYdXY4KJbLgBBOzRW ioZdjnXTChAIMpsa1QXKHsHNKyEPG0XfDdSZEhSXNi OXelXVClHPHyKMW0XXCoKRYpVM9GWfXaSXKbEiIpREIdRXAzYECohq2GGWZxNVXdODA4XORtMYMgFFKm PCoaUYPdVNMmHKYqSLWjNJEmRZ8JOsIkIQUoPzZ2HmRqOIHwOOJqpj8KOGZfRMOhTWt8ZZFyOMBcIKKj XGojDDFgEBIvPfQdSMCnKAGyDY2AEpNlIEEzZwU9Yr ZmAJAuIUWgxd2BANAgFSUhFsr7SwFhPELsTISnLWhoHUNeEDDkMJt6ETLsIGHpNM1WWqXyIPrcZEHPKi c6PPouO1i9TNKoIT9TE2Dbb0NaIrziMPVTHFwcKN5mskNbGNLdLm6XB1vFViq1RGFuTYYwDkMjCJWrJU EsZtHjJjSzGFEpW9R7ZOl4DY4bZBEwDpTzNDUkPVKl VQXjKtQpTIS9OPYwGdDjPVIpMzV8PnSwFW8DBa1ZCpL9JMV8bVEqKp4HUaNvOoIVVsMrID0AFDv= ID Date Data Source [id number] 06/14/2021 10:40:29 AM EDT [facility] Name Value Range Interpretation Code Description Data Arabella rce(s) Supporting Document(s) Progress Notes [facility] SGWTDb2hUrTYEhAy00/OIOjsDMQou7IoBUfhYEa8CNrcMDVcA3DpTJD2mO6wWGD8MTmFLrQrKdGdFBK7 lbm [file] A4CM0cQABUPq9+SJzcyAXuqDxeDIHIAcJ8CaJ9VZrnLICSIv3X ID Date Data Source [id number] 06/14/2021 06:08:51 AM EDT [facility] Name Value Range Interpretation Code Description Data Arabella rce(s) Supporting Document(s) Nursing Note [facility] QANBPf8cXpOBGoMn03/GEWpfLEDct0RgZFqsVRi1CYfxHVEsO5JvQKK7eA7nPPC7VRdJLeWhAvOgUFU9 lbm [file] Lc2YDvA9FzbIJvRiES4XBZs= ID Date Data Source [id number] 06/14/2021 05:18:23 AM EDT [facility] Name Value Range Interpretation Code Description Data Arabella rce(s) Supporting Document(s) Care Plan [facility] WQEBVn3oSpOOCgLe81/KKVazHQDps9SvPAphDHg1THycCDGdH2FgVWT5wF5gSJS5MDdOLxMeOkNsPJP6 lbm [file] AgICAgICAgICAgICAgICAgICAgICAgICAgICAgICAg ICAgICAgICAgICAgICAgICAgICAgICAgICAgICAgICAgICAgICAgICAgICAgICAgICAgICAgICAgICAg ICANCiAgICAgICAgICAgICAgICAgICAgICAgICAgICAgICAgICAgICAgICAgICAgICAgICAgICAgICAg ICAgICAgICAgICAgICAgICAgICAgICAgICAgICAgIC AgICAgICAgICAgICANCiAgICAgICAgICAgICAgICAgICAgICAgICAgICAgICAgICAgICAgICAgICAgIC AgICAgICAgICAgICAgICAgICAgICAgICAgICAgICAgICAgICAgICAgICAgICAgICAgICAgICANCiAgIC AgICAgICAgICAgICAgICAgICAgICAgICAgICAgICAg ICAgICAgICAgICAgICAgICAgICAgICAgICAgICAgICAgICAgICAgICAgICAgICAgICAgICAgICAgICAg ICAgICANCiAgICAgICAgICAgICAgICAgICAgICAgICAgICAgICAgICAgICAgICAgICAgICAgICAgICAg ICAgICAgICAgICAgICAgICAgICAgICAgICAgICAgIC AgICAgICAgICAgICAgICANCiAgICAgICAgICAgICAgICAgICAgICAgICAgICAgICAgICAgICAgICAgIC AgICAgICAgICAgICAgICAgICAgICAgICAgICAgICAgICAgICAgICAgICAgICAgICAgICAgICAgICANCi AgICAgICAgICAgICAgICAgICAgICAgICAgICAgICAg ICAgICAgICAgICAgICAgICAgICAgICAgICAgICAgICAgICAgICAgICAgICAgICAgICAgICAgICAgICAg ICAgICAgICANCiAgICAgICAgICAgICAgICAgICAgICAgICAgICAgICAgICAgICAgICAgICAgICAgICAg ICAgICAgICAgICAgICAgICAgICAgICAgICAgICAgIC AgICAgICAgICAgICAgICAgICANCiAgICAgICAgICAgICAgICAgICAgICAgICAgICAgICAgICAgICAgIC AgICAgICAgICAgICAgICAgICAgICAgICAgICAgICAgICAgICAgICAgICAgICAgICAgICAgICAgICAgIC ANCiAgICAgICAgICAgICAgICAgICAgICAgICAgICAg ICAgICAgICAgICAgICAgICAgICAgICAgICAgICAgICAgICAgICAgICAgICAgICAgICAgICAgICAgICAg ICAgICAgICAgICANCjw/xRNkD3iesMZmjcQ3Z9ljMt3PJn2FBC9tq8AnRLTjTMpkegChJjtYKcMzVPEe BloUNjl6EMsiCN5QpOCrV6IeJ3ZfIOebVP6HMBYvLF SnyYFkZXKnCDHcLfN6NARiGEuiNH6PaMTbYIyiAQEuUFXqQhKfMPCmQJ5AEEShR518kcPkUu8OBh9LTn CqSU6qwk6ISoEeMBItYtmHXre3ORsrPI3JyJGzfBOeVnJsXQETXrRbC6snd0JvCiTcQHUNOQfoDC9Va9 VudCAxDQo+Fj5WJC4cu3NiJYvuUzKgSF4rxt9GAArR WeGkQ9OiwSnnWCNwzsTvDWwjrdShoPCTjCXdpJVlDsMwj7PhVBXhGABKIQI5DIRdZoCaSbXkLVJcMCin ACPYZCmIZeNkI9Zdq6OlSyW5WRGxObTrEYivTKXpTkP7JL08pRitZF5DXPYnZRSrPL34SSKmBAOvMh6W Pb1WXcRoIX9laf3NNqBdPKEsHwvBFbm9VRerGH5XqM FuF9HheZKqu0eOQyRiU5YZAUJnGHYsDg3AXFSgKpIhGVAfZYovXH6kWTPpPRNSmRqpmmP2WH5EBY4lgp LpMC8HFfFjJh3iDp0BKqIoB7BaV3LsCSStMULWGZduXH6ICBpyOT2bMN8Mr5YVxXHpoR8yen4AQVIeAZ UcUaglid8FElvqB0F8tKbwOKSrIeGdYGTKDCijCW5C MBKhRWO7UYHfXLVaKEJOZuAnP91fAJ1PR1Jgg30zRkO3GKPiMzFbHZnnBO37aSshgtFvjDHrpSnoBT0E Cj4+UUbkzdEeFxkEMcqiVZEMTqLjNzGLRiPxDQJjRJHiLROgHoE4VzAwYk3PSYKyCIGqZZDpGlFhQNOn MXRmLWojOCTjSXFdWEQvPLEoMWKyUK2AIcQzGLOmOI Q3NifdDPDfVUUmoa6WZARySCCpBKB3PkHdKHTyWFNoJLjtTXPaFXNoZQboROSaHAFkBU0BTbWoPHWpZU F0UVSeMFHwQDUyet7DBBHuKLTwOjGxRJOwBOTqCYAoQHerQPUjPHWvVIL5PKGnLDYtHQ1SYtIhZTKjAS Y6YZqhXNWlUJCoau1ICAHoKDSwOEt8FSDyTQBhFGSz KCgxTDIbEWE3USg2LGQrLEDiQC3OSeBuOSAyBZWjRIKqVYUaLVEfvl0FGAMtNZHiXcW0SKKfMSIuKVXr NJvgLMYuNCB3SVU8UKJaBASyUV8HHaCoHYPmDXp5CdBgIKPgKHNgxp8BFJOeNHJlUDO6MPBsJHAgYQRx TCmoLUPsMZZ9Oip3HRDyIOWpGZ9DAyZaZEAyTVi0Wm iwMCIcNRWfku0QBQYeTYLvBWh6ASYmEISrWVDlQRgsTSSuBYEvKnO8IHDhUSXmQY7YLtWfYFXlHiZ0Na HgARXqKCFoyn3MLSOfDNJoAARaGYYiQWBaQDMcQRwjZENvZWLoIWVsSLUbLEWgWN2HBcHuFQAhVcMfYh fnNJBwMTTsll0GCCXyRBFgJnLlNXPjMTZcRXWcTQxn ZOMpWAR1FTplVTZeOYEiQJ4ZWyFaHXPbQcheSxDrUUIoPUEeob5LKUJiBQYyDUUcGtAhIBWyHJOpRDcm EEUuGEF8FYvpAVIxVBNaRI4GOaHhVUQsIQRwSDLpZSQfKMGrib0VYZXoKAN0LNV0UFAcVAIsIRLgBNom CPUeHFNtNTRaVDJtMGOyDL8QUgOmBGBnMDLnLBHmIA UsHOGmyq4ETGWoYZL9EfP5KPBqRHWnBBZvGJv6bbTglDFxFFq1VN3KB2NkfjGaYwHLAs2Tf028WHJ2GI LmJp8HE9ciFr7tUERpWEBXAh0VJXx3ZoAtYxi5FXQiKFKwGXJyCpKfEWdrJuAwWCCnOuWdSfV+IDwyMD IdJKM5RXU4SHAzBAOvNRYeLYIsTrR4EMYvHuLsQw2c XSANCj4+GHnztUEnqZvnKTSWMoSgZMifYYfeMZFTLi3T ID Date Data Source [id number] 06/13/2021 07:23:07 PM EDT [facility] Name Value Range Interpretation Code Description Data Arabella rce(s) Supporting Document(s) Anesthesia Postprocedure Evaluation [facility] AWYPCf9aEgJOGvJh01/OKSwwQPTrk9LkDYwxJXc3CQrgHIZdF7OzSXF6aL0qHSM3CLpRXpWoPuYaMTX4 lbm [file] N1SZ1oQSBOCb8+SNnkeLVobOrhZTXUSjZzEhQdJZhfEKTUBo5T ID Date Data Source [id number] 06/13/2021 07:16:51 PM EDT [facility] Name Value Range Interpretation Code Description Data Arabella rce(s) Supporting Document(s) Nursing Note [facility] KUECSr4nIbHJDkDv89/GAOsnKBKvn5NyYMaqKWy8XUcaNOLvO1MdXQH3oG5rYMW2FQmRVbLzEiNvVDI9 lbm [file] VPO6TyMhROr5Cpj5VDQ7KHG+NK8eKTd+Yd1Za8YktvF2ddZeDEaiPJI0SL1JOTRKE7QWCf== ID Date Data Source [id number] 06/14/2021 04:48:00 AM EDT [facility] Name Value Range Interpretation Code Description Data Arabella rce(s) Supporting Document(s) Amphetamines, Urine Negative Negative Normal (applies to non-nume ny results) [facility] Barbituates, Urine Negative Negative Normal (applies to non-numer ic results) [facility] Benzodiazepines, Urine Negative Negative Normal (a pplies to non-numeric results) [facility] Cannabanoids, Urine Negative Negative Normal (applies to non-nume ny results) [facility] Cocaine, Urine Negative Negative Normal (applies to non-numeric r esults) [facility] Opiates, Urine Positive Negative Abnormal (applies to non-numeric results) [facility] PCP, Urine Negative Negative Normal (applies to non-numeric resul ts) [facility] Methadone, Urine Negative Negative Normal (applies to non-numeric results) [facility] DrugMinimum Detection Threshold (Conc.)A [id number] ng/mLBarbiturates 200 ng/mLBenzodiazepines 200 ng/mLCannabinoids 50 ng/mLCocaine Metabolites 300 ng/mLOpiates 300 ng/mLPhencyclidine (PCP) 25 ng/mLMethadone 300 ng/mLOxycodone 100 ng/mLNOTE: Phentermine may interfere with the amphetamine analysis.NOTE: This urine drug analysis is a screening procedure. Presumptivepositive results are unconfirmed.[facility] recommend submitting positive specimens to areference laboratory for confirmation. Oxycodone, Urine Positive Negative Abnormal (applies to non-numer ic results) [facility] The above 9 analytes were performed by [facility] [id number] Ramirezlorena, ,[place] [id number] ID Date Data Source [id number] 06/13/2021 03:43:30 PM EDT [facility] Name Value Range Interpretation Code Description Data Arabella rce(s) Supporting Document(s) Op Note [facility] SVBUDe7mNpGDZrGp75/IVMfwZSOtz4UcHGwdTRf6PDduVCEoG0TwSCC2kZ7kIIG1FLcVPoYiTqAaNQY4 lbm [file] OwPsXrNoIdNeNN5EMp4WKlQ2QLH1eGEnPh9QZeh1CLWROpYaLP6AEEc= ID Date Data Source [id number] 06/13/2021 03:37:22 PM EDT [facility] Name Value Range Interpretation Code Description Data Arabella rce(s) Supporting Document(s) Perioperative Nursing Note [facility] XVTFFx4kNbBXOpLv08/DOYchMBZnh1PzAPhlYSk5TJpwKUAgZ5FbSFD2pC0pFNK0OHqSCwXbZgSfLRK5 lbm [file] QDhkLWH4NWTrPXV+OD3qTFh+Nq4Sl8VdjrZ7pzPsIBxfZGc8SZ1DYDHRU1UFLn== ID Date Data Source [id number] 06/13/2021 03:31:09 PM EDT [facility] Name Value Range Interpretation Code Description Data Arabella rce(s) Supporting Document(s) Perioperative Nursing Note [facility] GGLXAx9iWrMRFpAc55/CEKtfXHHwf8NvZRnvXUk9NZdyJXQyZ1NtOKY2fJ1tADF8NDdRYzClHcXiCNU1 lbm [file] CoU1XwltPTQnMmlrCBA+ZH3aFIs+Qy6Wi1CppwS9rqSzISznHDa4Ee0YKJYNN9YQIr== ID Date Data Source [id number] 06/13/2021 02:59:29 PM EDT [facility] Name Value Range Interpretation Code Description Data Arabella rce(s) Supporting Document(s) Progress Notes [facility] OOZISx2qWdNOGyTx43/MWYwyPSSoa3DjYKppXLy4MGktMDLuP9FhKFI0wN2uDUG9ULaQCyQuWlRkVJS5 lbm SoAhjIJzSjTXPnSwyRViTwHMqmWfjslMJoXP4BmNE2PAEfW03iJCKmGVZdF0HrQAYxMJV+Fk6HAOUrzS LlKK1EPlqS0BoconL1JF9yYA+Dpi/QSLIR7aFnQv67ao6NDQkxzkfy9GBNt5TnnvI10KDUn36gdP9C6o hvkR9W2FXbGU59YGgodbh/vROHqZFSivX/zcc01+Ji Ep40ZlrEWCgqwOlWLJKilTebPv2xZ6gc4r5YjIFyl/3nonIIOuQXagvTZQFLr1DkFCZwa+ta9JzAV/B1 RqmddK0AS0+yHEUnDb1Bihg7z+lQe27GyBxW2t9cp5Vmh4OXMWGst5flfBk5xS4Sbi9Cb4QG3wa0qOW1 dNhJzetlcX3u4sRr3HC1tmBK3uXRevzTUuanrtF8mM 6WMpDxhlZdXXASiirRMdyYdCfCLTjsEgenXItSLNto7DGIx3XgtjWRYnTDG5vVKB0v0fFQLWNCd16bcX 8F1VbLAV3yyYqD2MhTi7cwxY/XHm/Dx0WbuBkXt2dxdGvTsqdxfKovvvAsAOIxtvLg9V4cWo3U06V5W/ YMPLbr3UrvISGR73gDUHUU6fQnGMpRraA3RYUCtwZR [file] H5ZAMmCyOwXMTgNfi+MU9oSHi+Ta7Mb4DgihD4ueUuGCofOeJmZf8GUIQQY8CUCp== ID Date Data Source [id number] 06/18/2021 03:02:00 PM EST [facility] [address] [place] [address] PATHOLOGY CLIA# [id number] Surgical Pathology ReportPATIENT: SIENNA FOSTER CASE NUMBER:[id number] #: [id number] Date Collected:06/13/2021ccount #: [id number] Date Received:06/13/2021OB: 1980 Age: 40 y.o. Date Reported:06/18/2021ex: FLocation: [facility] Attending Physician:RASHAWN LOWRYClinical Information: PEPTIC ULCER DISEASESpecimen: GASTRO-JEJUNAL ANASTOMOSIS, RESECTION FINAL DIAGNOSISGASTRO-JEJUNAL ANASTOMOSIS, RESECTION:FOCAL BENIGN CHRONIC ULCERATION OF GASTO-JEJUNAL ANASTOMOTIC SITE. CHRONIC INFLAMMATION OF NON-ULCERATED MUCOSA, MILD TO FOCALLY MODERATE.NO HELICOBACTER PYLORI ORGANISMS IDENTIFIED UPON IMMUNOHISTOCHEMICAL H. PYLORI STAIN.LDM/DYANMGrossThe specimen is received in formalin labeled gastrojejunal anastomosisand consists of an 8.5 x 3.2 x 1.8 cm portion of gastric tissue which isstapled along one long edge by a 9.3 cm in length linear staple line. Theopposing surface displays a 4.5 x 2.3 cm surgical defect exposing the gastriclumen. Adjacent to this defect is a separate 3.2 cm in length linear stapledarea. Following removal of the stapled material, the margin underlying thelonger stapled edge is inked blue and the margin underlying the longer stapled edge is inked blue and the margin underlying the shorter stapled edge isinked black. The specimen is opened to reveal a predominantly wellhealed site of anastomosis attaching the portion of the stomach to a portion ofpossible small bowel tissue. Noted within the portion of small boweltissue is a 0.5 x 0.3 cm ulcerated pink-red focus which comes to 0.5 cm fromthe black-inked margin and 6.5 cm from the blue-inked margin. The remaining gastric and small bowel mucosa have a sheehan-pink edematous glistening folded architecture without additional gross lesions. Representativesections of the tissue are submitted as follows: 1-sections to include the areaof ulceration in its entirety, 1-7-hgzeavrljs admissions representative sections ofthe tissue to include the blue-inked margin in cassette 3. BRANDON/kb Following microscopic examination of the initially examined sections, additional admissions representative sections of the specimen to include an area ofslight dark red discoloration noted on the mucosal surface are submittedin cassette 4. BRANDON/slm Electronically SignedBy: Wai Castañeda, MDCPT: [id number], [id number] PathologistI ATTEST THAT THE ABOVE DIAGNOSIS IS BASED UPON MY PERSONAL MICROSCOPIC EXAMINATION OF THE SLIDES (AND/OR OTHER MATERIAL), AND THAT I HAVE REVIEWED AND APPROVED THIS REPORT.PERFORMED AT: [facility] [address] [place], [place] [address]THE TECHNICAL COMPONENT WAS PERFOR[facility] AT [facility], [address] [place] [address].CHAIR AND COUCH MAKER: WAI CASTAÑEDA M.D. [facility]# [id number].SIENNA FOSTER Page 1 of 1 Name Value Range Interpretation Code Description Data Arabella rce(s) Supporting Document(s) ID Date Data Source [id number] 06/13/2021 12:41:00 PM EDT [facility] Name Value Range Interpretation Code Description Data Arabella rce(s) Supporting Document(s) Care Plan [facility] MNPGOq5oVaWTRiIl34/XSXveVNEou2McTTqeEQw8UNhoGTMmN2JqKRE2aB5vLSV1QUmHBxQhIoAtKXY9 m [file] statistical clerk advertising+3RzXFsjSIGxD4mRDx4+33/6OLWieVQXeg9E264 [file] ICAgICAgICAgICAgICAgICAgICAgICAgICAgICAgIC AgICAgICAgICAgICAgICAgICAgICAgICAgICAgICAgICAgICANCiAgICAgICAgICAgICAgICAgICAgIC AgICAgICAgICAgICAgICAgICAgICAgICAgICAgICAgICAgICAgICAgICAgICAgICAgICAgICAgICAgIC AgICAgICAgICAgICAgICAgICANCiAgICAgICAgICAg ICAgICAgICAgICAgICAgICAgICAgICAgICAgICAgICAgICAgICAgICAgICAgICAgICAgICAgICAgICAg ICAgICAgICAgICAgICAgICAgICAgICAgICAgICANCiAgICAgICAgICAgICAgICAgICAgICAgICAgICAg ICAgICAgICAgICAgICAgICAgICAgICAgICAgICAgIC AgICAgICAgICAgICAgICAgICAgICAgICAgICAgICAgICAgICAgICANCiAgICAgICAgICAgICAgICAgIC AgICAgICAgICAgICAgICAgICAgICAgICAgICAgICAgICAgICAgICAgICAgICAgICAgICAgICAgICAgIC AgICAgICAgICAgICAgICAgICAgICANCiAgICAgICAg ICAgICAgICAgICAgICAgICAgICAgICAgICAgICAgICAgICAgICAgICAgICAgICAgICAgICAgICAgICAg ICAgICAgICAgICAgICAgICAgICAgICAgICAgICAgICANCiAgICAgICAgICAgICAgICAgICAgICAgICAg ICAgICAgICAgICAgICAgICAgICAgICAgICAgICAgIC AgICAgICAgICAgICAgICAgICAgICAgICAgICAgICAgICAgICAgICAgICANCiAgICAgICAgICAgICAgIC AgICAgICAgICAgICAgICAgICAgICAgICAgICAgICAgICAgICAgICAgICAgICAgICAgICAgICAgICAgIC AgICAgICAgICAgICAgICAgICAgICAgICANCiAgICAg ICAgICAgICAgICAgICAgICAgICAgICAgICAgICAgICAgICAgICAgICAgICAgICAgICAgICAgICAgICAg ICAgICAgICAgICAgICAgICAgICAgICAgICAgICAgICAgICANCiAgICAgICAgICAgICAgICAgICAgICAg ICAgICAgICAgICAgICAgICAgICAgICAgICAgICAgIC AgICAgICAgICAgICAgICAgICAgICAgICAgICAgICAgICAgICAgICAgICAgICANCjw/rARbH7yurXXpjq Y4H9vnAd9VEn4KMN8gt4TgHNWbQPdowtJeJljMDwIwMQZiItqDVfj8ORxwAL5XzAEdA4JqJ5VeDKnaBT 0BMLVjNNUfkLGgJBFmHGJfIfF5YRTyTNnrFQ9VkJGt UYkdWANaHBXoEpQtLERrXL8KBPScY528nvEtCq0OFu2VBwMoFC2ixn3XXxjvTIOjYuuBFov5GOqwDM7K tDZrlPWfAQKaNPYCZrYjZ7ikq3KlMgraGGWJJLpaOZ4Vn9ZedDZlFPv+Dw2JWP7om1MmNLnrBJQzYO6f wt6GLUnUTfBbC0XihIlyCRXvzvWgFDevyaNdxCCJHR LqALWsm23htoqnAz6fCVQsQWSnHI4xZLTsDPOeVhUqWCPGCU2OQCIxANAfcMOsWQIgXAPZFB9GJDwrSF V8QhotcaMlgFXuZJoyBS6ETBKwmkRzJvqnQAPHDRv+Ci4FIU6jy0ZhIAzuTXRmDY5pmm0CEEjFTgNbC7 L5nLOmH6D4MJsgZq8IBGIiEOSqLpPuKJTJVNlnXI8A GX3gvsI7JZ6SvXEcUIZkFGXkjQHeEYz7M60bsYVuMYqrAM4GOLO+Mau+Ay0QFQEdOQUoAHZwSlFcXLLW ZvWsO9CeS6EDf5KaJ2TyIJ54aJexekSfOJjoSN5ALW4rXOAzAOIVCZ4HgKIohQ0epmPrWaSvVUNZVcHh X76bmFBwLWYxHCB8BKBlCr3UYWHyN4XhogZnoLmzis LaAXVcTJFMMF0VSNisseKdbEHjgLccAQ62rNjmKZ0OEt0YDkGuUS1gfd6AyZPgTo9QCZZqLK9SXYVvOP CgVORsBWF4XEOuAyZhLFnrPKRkWRSzYRH0GAQvYDIsJC4QVqLbMTZxTzP0IkCjFPHwYRHkmz9NQWDcSB DgZzG8HqXhEJCkLADfQGdwAQLhVTIkSKY3EWLyYVWn FI5GAlPlKCCaMNXgPLXbBEXdTEQtbj6RDAJyJMTtSzZ1HpUhQDVaWPFxBDydHNAvPQClXYR7TLYoWECf GB7TYeAyZHOqPXFiNwhkDMBjUDBvyj9UOXYpRSXiUIE9BeAdRBSoZUYjLLxlNCGxRED3Xmf4LMFnYBNs CL8EMiDaCPHvEZZ6MlLsCQWaVFDktd2HSPKfABHxCS BmHlPqJFBdBAXyVEkiJKKhHNS2ZfDiWTNfQUUzPZ6JRxLuJLToTKD7OIPmFPCsHYRwjn7HBXRpGOCgEO L0HtYrKJEpZHBvNUgyZPEvPCZ6BCx6XOGgYRVtVQ8GUsZwGIWfTJd7EOkjATHrNBKyhx5HFCBwLREtMW PuPfZwAQBnUOEcDEruVQFmJNW4BKvbSDRqNAVnYH1T YsCzJIUaAnUtKEVjGOWmPJEsmf1HOSFvWWZxOZMdJxAwBJEpCHHwOVmnNTVjJIOtONu6LYJzKVNcRP0B NkKmMAChHiU3RLZgWJEtVQJrfx6ZIOHvVTDzSXAkXvPfHACrXERwCXgjKVYeTXLiSar4BNWlCQDzML9H QrDmYXQjYwPcVnJwLCXiXGYwky7MLTFiIYRlCkY0Lq YwSRNtWWAwHWviHKOpFCMoSfX3BZJpNQRmXL0NQnBsKOGsDaK9HNngCMRwRYWylu3OaDKsuQbngi2QIA dGRo2JfVbhKZNcVZywJr5jxADkOHVnYEMWFw2LzuKsCSBvVNKBPXbdIEGrQRy9KQUcQ4FjKFWzOqltAY XhJ5ZrYtLxTWmeZBddIpinTsF1LfCtCnWyTFPeARZr EEZ0GVM9U3W0N6O4FWC1SGKlLcQ+SL0uYWa+Zr9Nf8IsymE7xwXxDNeuUHDbNa8NDKMLA4EAMd== ID Date Data Source [id number] 06/13/2021 12:35:23 PM EDT [facility] Name Value Range Interpretation Code Description Data Arabella rce(s) Supporting Document(s) Progress Notes [facility] CFZYIo8bIdUNEsJk53/FTNmmDOBgk9ExPTqcQWv8JLpaIQKvT2YkXGK3pM5mTHT1CKtUDrSsZbGnIXX1 lbm [file] ICAgICAgICAgICAgICAgICAgICAgICAgICAgICAgIC HkNOFzIHAiORCeMODtISImUIMyGBPuSDYoFYQvUMRwEEGpMGCuFS0GUJKfPMXqVSRbTBTeEGOlWJPkWF AgICAgICAgICAgICAgICAgICAgICAgICAgICAgICAgICAgICAgICAgICAgICAgICAgICAgICAgICAgIC LlAVEoPHTwBEIuILZiBLThTAIgKF2XITUeXQMlDZUf ICAgICAgICAgICAgICAgICAgICAgICAgICAgICAgICAgICAgICAgICAgICAgICAgICAgICAgICAgICAg XOAfYJZpCCTlXLBrFBVsXHMbRWCkMERxABRnRNUyUD0FPJJzMPMkAJErTPXlSZKmXAQzTAWiTOPlDWRu ICAgICAgICAgICAgICAgICAgICAgICAgICAgICAgIC QiUHPjJIUcFKSbVRRqNLClGRXnSCOeGTHzWTKnNCBqNVPzFWMoFCTmEB4XGAQaPCCaNWVxZDEkQKYeNW AgICAgICAgICAgICAgICAgICAgICAgICAgICAgICAgICAgICAgICAgICAgICAgICAgICAgICAgICAgIC GnURWuPXYkQGSpGSJeYVKiQKVgABPeVF0QFZYqEASv ICAgICAgICAgICAgICAgICAgICAgICAgICAgICAgICAgICAgICAgICAgICAgICAgICAgICAgICAgICAg VOWwJCHuXDJvVFDtKYJwSQJfEZTdLORzYPLsEEOeTFQiLU7LNKJdNOHkNISiOZLhFXOgPTDzAYJjJSVq ICAgICAgICAgICAgICAgICAgICAgICAgICAgICAgIC ZcJCHxGJRsWOWlUGRiXUFyMRDyJDEcQHDlDHCkDDXjDJBlWPCaHIMbOLPmKK3FBZVzTIPjZBKdSEYlCJ AgICAgICAgICAgICAgICAgICAgICAgICAgICAgICAgICAgICAgICAgICAgICAgICAgICAgICAgICAgIC RmRJMdVCTnQYSoDOHmROYfEMKwELReWGAkHM8SYJCp ICAgICAgICAgICAgICAgICAgICAgICAgICAgICAgICAgICAgICAgICAgICAgICAgICAgICAgICAgICAg KBFfWIVeREYuHFXgMTXgZUUoDYCtSFYaGRXcUDQjGVKvWWSsHV9HALZnZNUjUHCkRWBvFFThAFAxOELc ICAgICAgICAgICAgICAgICAgICAgICAgICAgICAgIC AnMBWpOREeXTIdPXMmLNZwWLMgNAImKQKuNBQwDJJiHXHeUOWdRJRzUNXwWMBrVX5NLP74qYSti6I8PZ MrET0wrxu/Ix5FSQvuctEfcJXgSO8WTpJpRP1oly8BJtNuZY4vio7LKGfXVlLvQ7T3dUSjAFYuIRZXYk BuZ95uGIfcCw41FPbmBKQlUtFqWHb2Hz5OYxKmO0jx UUSyZnN8QKMwIoO8DJBaElC0KBMkGwUrTERfBHUxHY3NVROcI838hjHeBQ5MNd5POaYrEU9yxl4WXSMo GFHdKudZPwq1GWxqBN0DeKYjfOR7FkOxKVZYNlBdI1sdw3BbMZFxCCXZAZiiAW2Fo7TphUPjFQt+Pg0K KG4xq6OuAGy9WsOxIN6iyh3SNIrXEeQkM0UeiKrzCQ Rcd1wdJZNaKJ6esNBhGAH0EWZfjrqnwOeuVSCKGQCdcMMlyJtuHNJKJLEESbGlyTKpLF52JjOyCzMrMD V2JtNcZI4gBHyrLH7SZGL7LDurNNObLSUhR3gZQsXxCMksBTLrvWfeMM4LGvHrV2QjauLkgJL6OaFiEK INCj4+ABatruGuSwiYCjI6FTXzt0ApUTh0NF1YPPNa YNwzIB9LPBRnqQ6tGKudKO7MPcT6VMBtAKNDYqWwY27prLOcFYh5K0BbLkMdMQKsIbkkTHDtDPztLnNt ZXMgWyBdDQogID4+ID4+OSqjXX8EYQixpxYtMTSyOa2SEJJoPINsGB2xKDDrWKNtU7L0mSpuCJVPByWj V3cskpgkSW7iAUEfU615zOhievRfNWUhRJHgFq0RFM SwBWW7ATGyrCKqMMFdXNTHUKssPY8RyZJdRVA8oD7gSNhaBEEcPCTgS6yICqEbgJknOK26rQhmmpZgsN BdDQo+Cl1YAK2jn5LiZDq5wbKgSThlQOV0FAzoNPKcGBYgVKGrEDW5MJN5WKIAYnPmWPIkZDXgTMwsVU QfIHPnlv9CIWGwYLLvWJBkLaXhWSMzTCZfYJoeOPRy PGE8CIM0QBTeUIBvLD3TTrYjGOJqVAOeGIukVBJvMKZaoe3WOSIqZDBgCcsaJQSmPQSaLKXtFGipKIEr ZHMjKSS7RHKwAZTqWF4LKaTaAFBlCYEtPqYrGBIfRVGbeo7DLRSfDFUxCRGxEJTvCFYtQMBfUFgcIGCq GCT3MFrzVKAaMXPxBS0LSxRpMKVmWEceJXjsHDKwCN Nwrh0SXNWkFZHaILa1DeHtSMXfUJBeZNiiWLXgSWUqPXLhVUQkBUSxKM5JCoJlJWAoUVOyUDNaIVGtNB Leap5EMRTpBZOeNBRdCrRpZJYbCJWcGSjtLUVgDVKsZWRcQLKsUJBgVS0ZGxQpRKYjRPHrCsFcYEXcSE Kiqr2YNTTnGVGhJzW0UWFwANApYZLqESywCJGtEOJx IhKbDVNcBITvPR6BDzOqDEGmXHJ8YVWbIJBkVQEkze2WAPKdNIFxXsnzUjKqLQAzHAZdVXcbBRMxQWY1 ODp3CTCdROTgNW8GIbEbSWWuIHEpHKOnMOPyETPaqu9TYBYaDBWlEZG7JdBsLZXfPTZbZGtlADKtXGI5 PXGwKHSgFKDqHU4ABfQiPFZrFYTeHUfgVQNuAQTonl 8CDAOiCKSgPaYfMPKzIJJpNRGvSCrxHDAnEBR1Yif7LKNaMYDlQD1EKpMtLJCeAmGxVQXtLJCbBCTzpf 6IEUQxOTDqNUCmPHQhKNAcNJGlDPtyGPQcVWHhZiL6AAAqIMVnWY8IWtZuKCDeNgC9XPZiCORdZKEozt 0KMDAwMDAzMTAyOCAwMDAwMCBuDQowMDAwMDMxOTcw QBBnZSGxUS5BWyZqUGZzReMdBbOjDKFcOHUsdc5TCNJdPUXaQkZ6EcJyTGQiAMQwSZivULBwDNB7AYe2 TJUwMKVrPJ0ZCvGmCBRhOzl5ZBNvAOBwTKNmqs2TAZYgYNEvUcyeRFDwWWJhEDRzDYdyUOKnBYX1QZD2 ROEwEFQhQB2FHqRhGJUlWhslJQMbBFNvYALrpi3BDY JwJUQyAAA9VdUqNUWtKHZgWBwsMOCnTEOyJSEoYLSaFWZaUJ4UViHoYXFkDXXyNdKzSFJjFATnql0PDK YgHDX3XQR6ImElZSMcICIyBXz2drNnsOWhDRb7PJ3VJ5ZenrKvULPEHd5Ya575QDL6LRWkSb4YT2rpWx 8oQUTrBKYPAc7FSRe9XWAwMqDnQsA5GzQ8QvciYJiu ZGMzOGExZWIwODBlNTA+SFxtVkU0WURzAgd6NOfwX3QfEUWaQfR2ZIRhBvY9VFB7EK4nBJSNWa8+DQpz uCUrxBqaKIGWZoIsPYQ9TAacXHUXAb7Y ID Date Data Source [id number] 06/13/2021 11:19:39 AM EDT [facility] Name Value Range Interpretation Code Description Data Arabella rce(s) Supporting Document(s) Anesthesia Procedure Notes [facility] HGUOOg0yPtCFWvQo84/VCDimKXJoa2VhTAnrMFs6DXciQBQuA9InLKB3vK0uGIJ2ESxNQwSfEyGrAFO0 lbm PuDumKVbNvCRJrXsnLSoAeZUaaZwhuwKVxUK6IxIH5AFLeH18lKLLwASZiI4EkUHHyJLd+El3MRQEofU ByFA5XRvuR9Ufob7RCUY/vTP+Hm+kEiKMBBx7tJO1GfJCdYWBGiP1rNHuVWPVcO5BMO+Zc03p3vwLfY9 agq0mrAjU4Powa61tsUkg5lb/PyuT1izlZq1Z/k5Sz yYL9/RAxqEi0qgvvQ1jUSeMs9CM2jQrN+Pcf2E+DhEfor/uAyGzsdkz1wE9KvInLJYTVPuAgYMAOXk/5 c+FtB/X6xZ4wm9sch46bIv1gMot3Cs/nhzFn4/zR4WM2/ld6Cde4TaHOLKyshUv0rS66nSy7Gw53VLqd xIRPSbfjBM4tlOppW4BBm2RQJxBZVQRgFCEEzexpIh ISMpaUSG+f6oHOWH64PyLgF7qwPaOhysg9MHSO7rolnPgjS9PTLHmXz/6X2TUuEZz7IopZPflPZCO+Mm NRSojC3zwi7uNdqZnEmrHodePCX4QpkTnz3noqRh6Krr6Fmm1ZR+Abvc2kgxoNspIl+9CFD4ngrfqbTG ggb7Lr3/1YBUs/LpAwLOb8ViIrO4krd/pb5fr1y1ES EPcCM9tyEp0eQ3ohDg/h1fLMzH35ROxYnBgoKWh2Nw35f6Ybp6rFkObiKpHzxzwQ0mjHjGU7Kn/m/a+e d8l/+1LEr68f/qO8A1cumBs0XH6eBAg0zIbitgAzUBchJvMHWCh73C8xuTUouP1Ce3q6ia/DGqiwxe7o TqDj6sBgaO/DilAr0U5kJ+jHMGRZ4/pXEhqMfRVcnB Jp6D/ocuD+4lWe/sr9ie9+m0k1BTk1z9ETvoW3FzFAd/gVT6NXs4O6bAL4HayJZ55srEDi3Nv/Jackson+wi/ [file] AgICAgICAgICAgICAgICAgICAgICAgICAgICAgICAgICAgICAgICAgICAgICAgICAgICAgICAgICAgIC AgICAgICAgICAgICAgICAgICAgICAgICAgICAgICAg ICANCiAgICAgICAgICAgICAgICAgICAgICAgICAgICAgICAgICAgICAgICAgICAgICAgICAgICAgICAg ICAgICAgICAgICAgICAgICAgICAgICAgICAgICAgICAgICAgICAgICAgICANCiAgICAgICAgICAgICAg ICAgICAgICAgICAgICAgICAgICAgICAgICAgICAgIC AgICAgICAgICAgICAgICAgICAgICAgICAgICAgICAgICAgICAgICAgICAgICAgICAgICAgICANCiAgIC AgICAgICAgICAgICAgICAgICAgICAgICAgICAgICAgICAgICAgICAgICAgICAgICAgICAgICAgICAgIC AgICAgICAgICAgICAgICAgICAgICAgICAgICAgICAg ICAgICANCiAgICAgICAgICAgICAgICAgICAgICAgICAgICAgICAgICAgICAgICAgICAgICAgICAgICAg ICAgICAgICAgICAgICAgICAgICAgICAgICAgICAgICAgICAgICAgICAgICAgICANCiAgICAgICAgICAg ICAgICAgICAgICAgICAgICAgICAgICAgICAgICAgIC AgICAgICAgICAgICAgICAgICAgICAgICAgICAgICAgICAgICAgICAgICAgICAgICAgICAgICAgICANCi AgICAgICAgICAgICAgICAgICAgICAgICAgICAgICAgICAgICAgICAgICAgICAgICAgICAgICAgICAgIC AgICAgICAgICAgICAgICAgICAgICAgICAgICAgICAg ICAgICAgICANCiAgICAgICAgICAgICAgICAgICAgICAgICAgICAgICAgICAgICAgICAgICAgICAgICAg ICAgICAgICAgICAgICAgICAgICAgICAgICAgICAgICAgICAgICAgICAgICAgICAgICANCiAgICAgICAg ICAgICAgICAgICAgICAgICAgICAgICAgICAgICAgIC AgICAgICAgICAgICAgICAgICAgICAgICAgICAgICAgICAgICAgICAgICAgICAgICAgICAgICAgICAgIC ANCiAgICAgICAgICAgICAgICAgICAgICAgICAgICAgICAgICAgICAgICAgICAgICAgICAgICAgICAgIC AgICAgICAgICAgICAgICAgICAgICAgICAgICAgICAg ICAgICAgICAgICANCjw/iNCaE9rpjRWvtjE4X6vuVo3RMg2VRF4ap9KvHOJbVMvndpLgEeuDPuVfOCFi QfpHAen2NVvxCJ3EtTQgE2FvI6ZwYPudNH4EMYGkQCEgmINiIOOyGIRyPmA3UDIkWMupHR8EeRBvHLeb ZFEsMRYvElJoCXFvRJ5YRXIcH564mfOfHl1ADx6NHp KyDN0ujq0QBgquILNbPrcXXkj3JRapMU2YvNOhjMZaLYRxHRZQGbKjU1wia9UhWunqSWCCUWebVQ4Bp7 VudCAxDQo+Ke6TXV5gk1SdEPvjGVBiUH1taq0TMFzWPiQnB6WjjUsvSSQsFHG2xKYlgDLpDNEwG9GadR QpHP4ghJGmRHE3WYRbYPEhETKhIL8hohBpJRORTcRs DNIyMBAhWC4lJUVuFKViRlK5WBSABC9VRYQrYEJpwISfNJStEGVYOO0WCIquYTG1FwytfcHjnOAeXTyn KT2XJONeqvXhZuptOYKWKDw+Zo7IJI1bt3QpAIwaDPSuOJ9rnw2TPRuRDjMkS1P3yDXcY5A5OQftSz2J QFSlPGEdTpFzROHNYHadBJ2PYN8xmnP0OI5EnGZwYW WlYEKmwGSrWHf9B17liOZpTUbgKM6YFST+Mau+Df8EEPDpPAWlSESeFiRgUYNPJiEuG9SmS2KGm4FxX4 JsWB18uPqxlpByAOxgNR7OMT4zYUHkPZXFKD8ClVFucX3ajsQpBkIiRMCMEnMdS71cpPZlBCYiEZB4UH OqLx0TNLDqD1McboFqwXssfbYnEAPqELHQPQ5DBOxf btSpaIDenOdzPQ10jUruKW1RSo4VThFlQA1cek6SjBBxZj7UCXFuYQ9JSWSnRHBuPKCgFKH4MNPyWzIp TNxzHIWmIYSoHTA3CYMuOIKzTD3ACiNoKQEgNuS5FpmiNAJoNVKznq9ODWFaLTTyCrU6FHXpNBVoZPNl IXtfBAOlQRXvVLD2BFEiKHVdWX5GXtXqKZMzCSFsHs VlCUShVITzpj4MAMZjOATiLjBeAIKePCPbQJPpMSvpTVMfHGOfJGA3OBHwLWSyAU2YQsJcATGpRICbUG odRSXoIQGsgl0LLSSaAEIrEQAiLfVzZMRyBVGrFAjvJFHiRQB5NVV2KJXjIQByNR4CJbTzITQcBKH6NC DtMKWkTCCmms0AQIBrKLPhSBK8XTHbCZFeMWQcYDqr NQLnHSC5VWObITBxNAPrDC8BNpAcQNUfCKUbYBUqEMNzJBPamo9YFEKyNRTkGOJ8SxXhZVAuUYEzNSww AESwFOY9JkR9LQNqWTLzVW6KShDsJSQpEBi2NUzpDCIcAARweu6MCFHsCASdPTS6HHXgHMEzHZRcVHqg MQWxAOV2CjL5BRYfKNTaVQ4MCjVxWTOsNaBdXKyjNZ SpQGBzjv3VVUJzXFDjEGUjFAFgRBMgOJDvMZejHOWeLIEjJfI2IOEgKQMpYG5OJmUzSMKeFhF9KZqbWO IkGJIpht4FZCDkVEKdSBg8IuTsPMNyDAXcFMysBOFrGXBzJWX1AWFzQHUvVQ5MJbFfYCRiPlIvEVmyQT QiVJKeyj0POPCnEWVxXgz1ScCkBOAcEZLeKXxeFYPf RJBxZMT0UAPjQQCpSR4DAsDcVZAsYlDcQuIxNTEiRASvfj8HpFIqmWlgsw2EKEjZGp4UcGvhARUlRGof Yh9zxUGrIDAdDWJGQw0BxrMgSUFzNVOPRZnqBIMlDUVjSFR0PRY4Oov2NNFhCEDaCXluPPKtSbYgMQt8 UNo6GxY1RgN0YLv7HcgcWirwSmLoWoAvJ5MxRXGcDl H9CmQ2EXc+KP1fVBu+Zh0Bs2GqziR2sdIwUCenPZN7YC7YPABCW1MWLo== ID Date Data Source [id number] 06/13/2021 10:40:27 AM EDT [facility] Name Value Range Interpretation Code Description Data Arabella rce(s) Supporting Document(s) Perioperative Nursing Note [facility] MWLEYk2rFlPLKwUo17/MCQgoSXHha6ReOQixQRi8SQoeHUBmB6KrVWI5dJ0pTZD6TKfSAeKiZySiONO3 lbm [file] MAZzKbX1ARllOUVxIXF2Z7OmGuKyDk8mOBVXZo4+GZwflOWajYknVFXVBlZqCGLsDJnlULLVQt9Y ID Date Data Source [id number] 06/13/2021 10:36:35 AM EDT [facility] Name Value Range Interpretation Code Description Data Arabella rce(s) Supporting Document(s) Anesthesia Preprocedure Evaluation [facility] VFMNKn3qDuXXLuXb20/WPSmaOMHgf6WsUKupACx2NYisPQIoV8WeHUX6rO4rIUC9MYfNMuRqOrCbMAL7 lbm [file] PpTMD2VcMwJFOgGFYhNCXiLmbkHwPaTJ7ATd0LAzP1FWT3cOTmPa2FZmSlTUNZFrTrTE4APDn= ID Date Data Source [id number] 06/13/2021 05:08:12 AM EDT [facility] Name Value Range Interpretation Code Description Data Arabella rce(s) Supporting Document(s) Nursing Note [facility] LTKPDg6uIbXXEjSp81/GQTnyISEbq1BqEMgzWQb1VAwsNEKwO3UeEEB7aC6hDMT8SIhTRzDlAwAdOBQ0 lbm [file] YGu5Fz7HXHPWE7LSQr== ID Date Data Source [id number] 06/12/2021 06:38:56 PM EDT [facility] Name Value Range Interpretation Code Description Data Arabella rce(s) Supporting Document(s) Nursing Note [facility] QTMINt9tBlDJAdYp36/JWZdiVNHsw1DlHGcgQNh3FJzjLOXdO0HaWHG3jL9tONR6NUwVHiAeQcItSGU2 lbm [file] HiPTBwAiYsZPc3THxxUNl3ACU8ZA5cHAUCIa6+TFmkgYYexUtoIOINSkTiTKCeAHkhFOHHQz5T ID Date Data Source [id number] 06/12/2021 07:45:00 PM EDT [facility] Name Value Range Interpretation Code Description Data Arabella rce(s) Supporting Document(s) WBC 4.21 x1000/ul 4.80-10.00 Below low normal [facility] RBC 5.04 x1Mil/ul 4.20-5.40 Normal (applies to non-numeric re sults) [facility] Hemoglobin 13.8 g/dl 12.0-16.0 Normal (applies to non-numeric resul ts) [facility] Hematocrit 44.9 % 37.0-47.0 Normal (applies to non-numeric resul ts) [facility] MCV 89.1 fL 81.0-99.0 Normal (applies to non-numeric resul ts) [facility] MCH 27.4 pg 27.0-31.0 Normal (applies to non-numeric resul ts) [facility] MCHC 30.7 g/dl 32.2-37.0 Below low normal [facility] RDW 16.8 % 11.5-14.5 Above high normal [facility] Platelet Count 167 x1000/ul 130-400 Normal (applies to non-numeric results) [facility] MPV 10.0 fL 9.4-12.4 Normal (applies to non-numeric resul ts) [facility] Nucleated RBCs 0.00 % 0.00-0.20 Normal (applies to non-numeric r esults) [facility] Abs. Nucleated RBCs 0.00 x1000/ul 0.00-0.02 Normal (appl ies to non-numeric results) [facility] The above 12 analytes were performed by [facility] [id number], ,[place] [address] ID Date Data Source [id number] 06/12/2021 07:29:00 PM EDT [facility] Name Value Range Interpretation Code Description Data Arabella rce(s) Supporting Document(s) AST 30 IU/L 15-37 Normal (applies to non-numeric resul ts) [facility] Sulfasalazine and sulfapyridine have the potential to falsely depressAspartate Aminotransferase results. Baseline values before medication administration are recommended. ALT 31 IU/L 13-56 Normal (applies to non-numeric resul ts) [facility] Sulfasalazine and sulfapyridine have the potential to falsely depressAlanine Aminotransferase results. Baseline values before medication administration are recommended. Alkaline Phosphatase 53 mIU/ml 50-136 Normal (applies to non-num madiha results) [facility] Total Bilirubin 1.20 mg/dl 0.20-1.[address] [facility] Blood Urea Nitrogen 9 mg/dl 7-18 Normal (applies to non-nume ny results) [facility] Creatinine 0.60 mg/dl 0.51-0.95 Normal (applies to non-numeric resul ts) [facility] N-Acetylcysteine (NAC) and Metamizole em ve the potential to falselydepress Creatinine results. Baseline values before medication adminstration are recommended. Patients undergoing treatment with phenindione will have falselydepressed results. Patients on phenindione therapy should be tested with an alternativeCREA method.Toxic levels of acetaminophen may lead to falsely depressed results forpatient samples. Glomerular Filtration Rate >90.00 mL/min/1.73m2 [facility] GFR Reference Ranges:Normal Function or Mild Renal [...] of Health and the National KidneyFoundation. The Cropsey method used in calculating this result is traceable to IDMS standards. Glucose 103 mg/dl 70-110 Normal (applies to non-numeric resul ts) [facility] Sulfasalazine has the potential to false ly depress Glucose results. Sulfapyridine has the potential to falsely elevate Glucose results. Baseline values before medication administration are recommended. Calcium 7.9 mg/dl 8.5-10.1 Below low normal [facility] Total Protein 6.3 g/dl 6.4-8.2 Below low normal [facility] Albumin 3.0 g/dl 3.4-5.0 Below low normal [facility] Sodium 138 mEq/L 136-145 Normal (applies to non-numeric resul ts) [facility] Potassium 4.5 mEq/L 3.5-5.1 Normal (applies to non-numeric resul ts) [facility] Chloride 109.0 mEq/L 98.0-107.0 Above high normal [facility] Anion Gap 9.4 [facility] Carbon Dioxide 24.1 mMol/L 21.0-32.0 Normal (applies to non-numeric results) [facility] The above 16 analytes were performed by [facility] [id number], ,[place] [address] ID Date Data Source [id number] 06/12/2021 05:03:08 PM EDT [facility] Name Value Range Interpretation Code Description Data Arabella rce(s) Supporting Document(s) H&P [facility] GJTGXd7bHjJKOpEe43/PJNbeTMKjp1MyURqlRJe3ZOcyAGWlO7OiCNK0mQ4fJZY5BJmFVxUnMiQbWMP1 lbm [file] AgICAgICAgICAgICAgICAgICAgICAgICAgICAgICAgICAgICAgICAgICAgICAgICAgICAgICAgICAgIC AgICAgICAgICAgICANCiAgICAgICAgICAgICAgICAgICAgICAgICAgICAgICAgICAgICAgICAgICAgIC AgICAgICAgICAgICAgICAgICAgICAgICAgICAgICAg ICAgICAgICAgICAgICAgICAgICAgICANCiAgICAgICAgICAgICAgICAgICAgICAgICAgICAgICAgICAg ICAgICAgICAgICAgICAgICAgICAgICAgICAgICAgICAgICAgICAgICAgICAgICAgICAgICAgICAgICAg ICAgICANCiAgICAgICAgICAgICAgICAgICAgICAgIC AgICAgICAgICAgICAgICAgICAgICAgICAgICAgICAgICAgICAgICAgICAgICAgICAgICAgICAgICAgIC AgICAgICAgICAgICAgICANCiAgICAgICAgICAgICAgICAgICAgICAgICAgICAgICAgICAgICAgICAgIC AgICAgICAgICAgICAgICAgICAgICAgICAgICAgICAg ICAgICAgICAgICAgICAgICAgICAgICAgICANCiAgICAgICAgICAgICAgICAgICAgICAgICAgICAgICAg ICAgICAgICAgICAgICAgICAgICAgICAgICAgICAgICAgICAgICAgICAgICAgICAgICAgICAgICAgICAg ICAgICAgICANCiAgICAgICAgICAgICAgICAgICAgIC AgICAgICAgICAgICAgICAgICAgICAgICAgICAgICAgICAgICAgICAgICAgICAgICAgICAgICAgICAgIC AgICAgICAgICAgICAgICAgICANCiAgICAgICAgICAgICAgICAgICAgICAgICAgICAgICAgICAgICAgIC AgICAgICAgICAgICAgICAgICAgICAgICAgICAgICAg ICAgICAgICAgICAgICAgICAgICAgICAgICAgICANCiAgICAgICAgICAgICAgICAgICAgICAgICAgICAg ICAgICAgICAgICAgICAgICAgICAgICAgICAgICAgICAgICAgICAgICAgICAgICAgICAgICAgICAgICAg ICAgICAgICAgICANCiAgICAgICAgICAgICAgICAgIC AgICAgICAgICAgICAgICAgICAgICAgICAgICAgICAgICAgICAgICAgICAgICAgICAgICAgICAgICAgIC AgICAgICAgICAgICAgICAgICAgICANCjw/pNNxI0qmySVjtkJ2A1veJs1OWs1HHM9er2AzDTFhXRhjtj HlGrcLCqMhFGMoPdzBCnq4SUxdOH7BdPHdY2PlQ9Xv VYqjIJ3IMTUzGIJanRHzNODsDXZjCvE5JMHwTFpnII3NhRXpSMjdBTXnNWExOxWiCKWmTNLiHKFdBDZb GGYCVY7AEbFxP2CovD50ZUEXKv3+SSnyunJfMbmHWxL7JJDtr4TnROk9AF8XNHBfYikht4PyCWCtYSMF DTkrIF2ZBSH7ZXTfINWtOt5YTSGhV918crDzMU9BXm 6PGfSoUR4blm5MZKNrYZBqRokUIbr4RQkoGL8TwZSnDVoCCeDiDbjdH7gdsJhuwYPHSTtmOGAexlqeVW QdUQOdGMLcRC5kPPWiFQFdYjR1JPQNDT8OHEJvDEVzgLOqCFSfOYDBAF5DSDpjQFY6GwmngsNipOPqMG whIR2SWDQlpfWqTdhvSNKVMGs+Wc9TIC9fe8PvGAg0 CDEdHO5vcd5EYQwWKzHnZ2R8sQZxN7W2MOcdPk3WHGGzDEUoTguwTIKHFNpoXK6DAL4jiaE9SA4TkXCc EQCcESMfgPKjAVt8Y25owWKgCSuyUQ5NBEO+Mau+Vf4CCQWjAHGrIMGeIiSrMXYKJaGdU9PjL6EMd3Nm D8NtMI15aIouqcFsCVlhFV8YBQ4nEXIyYHTDZX7FyO OnyL7whwMxHNQtDXNUGqEaF33clSNuVKOmDOF6DMUtVn9MUQHeR6AukfWnqBcyggJfXHVlNTEGGD1JQG lwmkDurSDylKpcID07zDiuJX5OVv2QPcVlNT6ksu1QgTZrEa8QUUU4Zt0AIRBmDDKgCARwGDR8WQMrFd CfMCgkQXBuAERyHIF9DFQqBDNzSK9WWoDtHRQqIAI4 SCWqQLJoUMRcdq7FHTKkZKI9RuViMdDfEEArSHRpKFqlPXSdEDVcHFO7SWQtQTUjQX2DXzUgHYOrFOS9 AtugPVIjXRFbve5QDBDnZOFqJfGlIvMoFVPaDIGiYRzzAAXtNZK6AsRnOWSfTEBkAL2FXdMrGAEdVFZ5 YLBmJCEuMEMgia3YPWYeBLTySYN4QiNsPXStDZMyKF muAJGzPIL0Rau8FEDtQPFwLV6HOcZiURKjQSHlBRXvJKHdNMKbki2AAGIjYWJkUYHlDZFlTYAgMDElUC wcNFZhZELxMtS9IRVjGHUbTQ5GPxIiXCOqCOA5FmDwXGSpWWThgh0HZNZyMOVoKBa6AXGwRCDhENAtNO ibFSSiEUKlNfC2JDIqIPXaMT5XMuSfXCTqNKO7TTPr WCLsNIJgon8YNJDaXXSoHqK5PYUtXGVuCFGnDXssGTLlIAD7ZHE8OKCdZMLcUO5QCnEgDMEsOzS2TpQz UNYuOLNczt8TVBZeIYSvVKz6CzFoIVLcCTKxYGwmIFHkAAB5LwHdTEGcBMKtZT2DKkWdRQUiXiEsBBhi DWQyWUGlvc6YHKWxWHZvExTdZfGpMBZlCMAnOGhaQU LlPVL1LMeoHHTpSOLzZD3FVqCrMXBrGsy0ZuFcAQDdUOGgra7XPRAeGLOtZSRwBpAqYECuBJEiBUinCB JlNEL3Hum9OVOoLDZjFF6NVnOlNCXgUyb8QqMnJBMqZOYaju6CQCKqGEN1AeN9DICyIGCxHMZgTIcdBT FzOMXuLoAgWLYeEFIlQB2KGeDeSYIvRFZ6QbHeJADh NAUaah2ZFMRxINI5RmZ7XoKhKVSwQGWkQXzbCLMxRRPaAjG6ENNnUYCtDL2CDkFxZHYqUQKoCRVqKQOw WUMoxo0DKBBhVAF5SGK1EMLqPGKqGJSoOZnwHWFnUHR3ILV2LQUcVCJqZS5AFwRgXGYaMTH0RKLkVMLs KXRrac8FMEDmWZL8HlS4VCVzJTRiGJDzKCvlOONsVO R2DLJoDFFyTBLdXK3VJoDfYKKbNPH6VyXfNKGmEMDskk7EeSVnlGcrsp9DQYoOWa6RzJorGDHcGTgeKr 7yaFX0BIHpAKKZKa6GuyDuULVmTKEQGQttWTDfHEM6DYRvCfOaMFJoBRK7GkV1NLR3AFRcYOWdAYOoR1 V7RzS6HoOeUuTnGIQjSIU6LNTuPtrpPyD0LTM1OPUq MTBjYjQ+VB9hXLl+Oi1Mj1HqjyW5joQbZGk3EpzqYV3ONIXRN9MQRr== ID Date Data Source [id number] 06/12/2021 04:02:17 PM EDT [facility] Name Value Range Interpretation Code Description Data Arabella rce(s) Supporting Document(s) Progress Notes [facility] GVXEFw9gMyTKBxKt01/TBKkvYYJdd7IuARflVCi2PPgfNCOgM8CpYTS3nD1cYBE2GJnYLiCcFpQfZBB5 lbm [file] Nunam Iqua/Lf/wI14+yn9224leylXKpPpXbbPF2boEaCgpmecsaFFXqQB7yj1MwyTMsDJI9MNA8jf5GiHDUyRP [file] SMJ3QQEb== ID Date Data Source [id number] 06/12/2021 01:37:55 PM EDT [facility] Name Value Range Interpretation Code Description Data Arabella rce(s) Supporting Document(s) Care Plan [facility] SDQKNo9vIxJJXwJe32/DNGoqPGAfo9JwREoiBOl6YPadFDFgT5KlUPH4bU4cLRR9IMiOWtYkZwUvTSU7 lbm [file] ICAgICAgICAgICAgICAgICAgICAgICAgICAgICAgIC AgICAgICAgICAgICAgICAgICAgICAgICAgICAgICAgICAgICAgICANCiAgICAgICAgICAgICAgICAgIC AgICAgICAgICAgICAgICAgICAgICAgICAgICAgICAgICAgICAgICAgICAgICAgICAgICAgICAgICAgIC AgICAgICAgICAgICAgICAgICAgICANCiAgICAgICAg ICAgICAgICAgICAgICAgICAgICAgICAgICAgICAgICAgICAgICAgICAgICAgICAgICAgICAgICAgICAg ICAgICAgICAgICAgICAgICAgICAgICAgICAgICAgICANCiAgICAgICAgICAgICAgICAgICAgICAgICAg ICAgICAgICAgICAgICAgICAgICAgICAgICAgICAgIC AgICAgICAgICAgICAgICAgICAgICAgICAgICAgICAgICAgICAgICAgICANCiAgICAgICAgICAgICAgIC AgICAgICAgICAgICAgICAgICAgICAgICAgICAgICAgICAgICAgICAgICAgICAgICAgICAgICAgICAgIC AgICAgICAgICAgICAgICAgICAgICAgICANCiAgICAg ICAgICAgICAgICAgICAgICAgICAgICAgICAgICAgICAgICAgICAgICAgICAgICAgICAgICAgICAgICAg ICAgICAgICAgICAgICAgICAgICAgICAgICAgICAgICAgICANCiAgICAgICAgICAgICAgICAgICAgICAg ICAgICAgICAgICAgICAgICAgICAgICAgICAgICAgIC AgICAgICAgICAgICAgICAgICAgICAgICAgICAgICAgICAgICAgICAgICAgICANCiAgICAgICAgICAgIC AgICAgICAgICAgICAgICAgICAgICAgICAgICAgICAgICAgICAgICAgICAgICAgICAgICAgICAgICAgIC AgICAgICAgICAgICAgICAgICAgICAgICAgICANCiAg ICAgICAgICAgICAgICAgICAgICAgICAgICAgICAgICAgICAgICAgICAgICAgICAgICAgICAgICAgICAg ICAgICAgICAgICAgICAgICAgICAgICAgICAgICAgICAgICAgICANCiAgICAgICAgICAgICAgICAgICAg ICAgICAgICAgICAgICAgICAgICAgICAgICAgICAgIC AgICAgICAgICAgICAgICAgICAgICAgICAgICAgICAgICAgICAgICAgICAgICAgICANCjw/uNZgK7dqmL RtauF6H8lcAw7BUp8EZD0vc7NuZZEiBAwlptSwDksHJpEcNFLdHkzLOfs5ADkqTF5EySXyE7TeU4CvCI ssHT9ZGQSdRDDloLCpMQPuTCYiSjE8EMUeCGbpXY6L mFWtGEeyCHCpCYQcIiPeGIOcIP6QBRVcY575ueSuHv4PZs5SBeSzUU4cbe7QOpjxHJHnAchLNis1OEwc JD6DySUaeQUqGTIdKGCAFlUdA6feu8WtEamlYLKRZStwSE5Mz7WrcTGvYGf+Du7SZT1wf7XpYSmmXDKx ZW1znh0HCXvYGuZtC7OgoIvdBFSsmjYhMTkbfpYpoB NATHHmJHUvy53fsqelMz5nZDJeTZTvWB1hDAHeRQYwVtK2KIHBXM7QXANpKYCedCGnTIJoBWENWX0EZX ceBTW3PpmagiFwqZJeLUznJR6ZOHApvbBpXyocUUMKQXa+Qu5ELV9hb4FhUNsxPJGsAT8wlb9TEVgYHr BbD0D4mIDaB0N6VTwiOb5ULOJoHLFdMgMmWKJWIFjn JP1JPV8qaiR2PE7NyHPwCMLiJRIcmAEsZHm9L98zkXEwWHmtGR2LPFB+Mau+Kc7QMHVgYEUqIMEfMwHb VCMUXiWyH4SoM9LBk0NtY1BrXA46iNffubBzQHwrPB8RKL5oTYZcDOSPME6KaOOveA2dwdEdObXzDVQY KgKwY78vjCBqKOFlNGX0YWAeYs2CKVWyB3KbpgMcvX uazcQbAFQsPFOZCX9LTWrpgtSfzUErsZbxMG59lJidFP7YGy9AFgKjYG7onz3AiTVyOc7UQNMpFZ7JCE DpOHXbOZQgEER3DVHeGiKnJApoFKNdWURwQDG2QRXkROZzIN6CQfBxNPHpGsH9QyTgNFUuIHMgfz1KLT WnVAMmJwR4DAFqFMYyOBJxWPddLWEsNVArDYC5FDKf GHEoQV3XJcPmSYVkKOCuXLKjQZFpSSMwkk2JTFVsVZTyMuY1PVMnXVIfJKFwVRdaBVCxBERbXEO2MMBn FSKjRI4NLxWhRONnPCFqGvXbPZFiHXShrx2UQRQxUVNqMJJ6DYAzGBSgOHHaNEggPKTvSDZ6YyhzBNOk YXKwTE7XGeTjABZxARI9WfZyTNFzUBUxwg7XYTStVT GyGNNwKaJxIJJmFHBqAAkrJJGcIRJ9CxJwCXMpYKOnFE3AFfZkLLIvSYH8MGFxRVXnBDSwrq6QFYTsKJ RzHGA9EKIrWMUgHBNbEKnpBPMvRQC5DLlpOJTlYMPjVU6HIbWyKTVjICe2LYRqYOGwJYSrlq9RBWKbYV KhTGJyPNEaMJJbVDCvELolNVSdLRQ3MMm4SJPmIMAc NP8FEdFtRWBvZcOfIKrjKVSmYHChqc0UTJWaVFHwZJXvIdWyAKBvYTFaZSaqPFWtIZAmMFUjBLMrWOBj ER3WZiYkBVBcWmT9XEDyFQAgXRYlgm9CSYWvPLTgVFHvXGVoLWBsTLXbULsqJJIqSKRmWBNuDDEwMRDq DL5KMaNfRUDrZzNfMvUdWFVuFSGrqu7AVNCrDXIhEx U2ZEEuCNJsMXRbWOrnJQIqTCRpCpQsPDDpFEQcVZ9MPxAmUHKpKhZ9HFRaBYFvNHJusj6SxOAsbEjane 7VHQqYYw4OkAcpHJQwXKinCy5lrNKhVLEtQVLQEh3RqlHgIZOoFYIUWBdeZYRuOXL2BzKxAcs2KWUeVP W2WiPvHANkMKKhL1FjGCX3PqztMhS1MwHdQWTtAfF8 EYWnYGsvWzLuVaLmJaCoGwZ5BqW0KJE+ML1cPTv+Dj2Oc8JnihN4vjGcQGcpHXZfMU6CYNFKY6HQJc== ID Date Data Source [id number] 06/12/2021 07:13:03 AM EDT [facility] Name Value Range Interpretation Code Description Data Arabella rce(s) Supporting Document(s) Nursing Note [facility] WQHOAy4jYuBVMfJo64/ISYpgMIPjb9JoXGddNPp6TCblAQIvV2HzKZD4iS2vLVH4FMpBDaVaMrSgVUS3 lbm [file] V8NQZnRCfuDjBjSXMkHTMzJxFjWA5GPd5CEqK4AXV8vNRvKz6WXcEfHKlOVqBvPR8MAYb= ID Date Data Source [id number] 06/14/2021 08:35:00 AM EDT [facility] Name Value Range Interpretation Code Description Data Arabella rce(s) Supporting Document(s) Anabasine 23 ng/mL <2.0 Above high normal [facility] ADDITIONAL INFORMATIO N This test was developed and its performance characteristicsdetermined by [facility] in a manner consistent with CLIArequirements. This test has not been cleared or approved bythe U.S. Food and Drug Administration.Test Performed by:[address] [id number] Director: Rashawn Vides M.D. Ph.D.; CLIA# [id number] Cotinine >1200 ng/mL <5.0 Above high normal [facility] Nicotine 286 ng/mL <5.0 Above high normal [facility] Nornicotine >120 ng/mL <2.0 Above high normal [facility] The above 4 analytes were performed by [facility] ([id number]) ID Date Data Source [id number] 06/11/2021 09:02:00 PM EDT [facility] Name Value Range Interpretation Code Description Data Arabella rce(s) Supporting Document(s) SARS coronavirus 2 RNA [Presence] in Res piratory specimen by MELINDA with probe detection NEGATIVE [place] This lab was ordered by [facility] a nd reported by [facility]. ID Date Data Source [id number] 06/02/2021 01:34:04 PM EDT [facility] Name Value Range Interpretation Code Description Data Arabella rce(s) Supporting Document(s) Consults [facility] ZQSHVl7iVxHAAmRz85/EGYfrEZWmv7FpNSqwJCh7CCgbAFRzP1OhPEW3fL8lGBS5MKsWJiOpKnXgSZC2 lbm KyMqbGWsFfRZOxOhhQIePhKXkhLktjyOKhHR7ItTH4WHYzF06vXXMxMMYwN5WpZMQjNwv+Gq6MGWWblD NtZV6WBgkS2K1GfxyKNa5yAw9qOpwfKHB5v7/qIKsNWNypVHu40FgAjHGJFxOjNvDH/Rzl0hWoq5QG84 OzoKTEPohTO+zs8aq4mMJm/vtdHaVxEARq+//Dn2lu 1NWd+gkb8T0icU299r8mdlkENBLEhdVQ1e8ZW/7QUZ5rEmc/jT0ZhzZgtVyCdCjWzNkyLvGa9PF15jU+ qw0E28SZJ4RrPfQat7MT3RTC6cAdnqbZ5I3rNa2mFq7Su/hat4OoR2GkrJNQXPoG53hrccBPtdsd1PYb 8vg63IwYqjFqM2rj/fGhCP6qfA6GZRNt3ksMmrV6pf NAPOLEON/iZbEoYz9kzAQx8rIsYEbFln7ujHLDEoNY4bdMsiDOWHjz5Q6RCi+h60xB6mAaQJYV5qU79GCCyoL [file] owZKGZYfK9SgidXPwoYZYWVe2P ID Date Data Source [id number] 05/05/2021 06:37:00 PM EDT [facility] Patient: KRISTIN SIENNA M [facility].VisitID: [id number] [place] [address] [phone], FRegistration Date/Time: 04/24/2021 22:55 Weight:68.9 kg (S). [...] rce(s) Supporting Document(s) ID Date Data Source [id number] 05/04/2021 04:34:32 PM EDT [facility] Name Value Range Interpretation Code Description Data Arabella rce(s) Supporting Document(s) Discharge Summary [facility] KTRYFj0nYdFBCuYb07/DWEsyWWRoe1DcPFygBKo2QJtcINRiF8FvCCO8xB2wXMI4BAnSScBeEcUgFBF4 [facility] [file] NMHvE9CrMZ9eYPPEWx8+KVwbfCDvkUzyVVFPBxGyPBE4SSywFFEFHc6J ID Date Data Source [id number] 05/04/2021 03:25:37 PM EDT [facility] Name Value Range Interpretation Code Description Data Arabella rce(s) Supporting Document(s) Nursing Note [facility] SIYOVu7tLkHHPcTe14/LAYxsGFWtm6QrIOkgMRx1EYxqINLvT2MaZEY3dG1hFGO8SCpZEbIxDrYaNIA9 lbm [file] T0YNCg== ID Date Data Source [id number] 05/04/2021 12:56:29 PM EDT [facility] Name Value Range Interpretation Code Description Data Arabella rce(s) Supporting Document(s) Care Plan [facility] YPVPTp6nRnCBAaJz33/HIBceUZUag6VdCLxuRYx9KYszTFCaX1AjGPW2gW1pTIK2HDgHHuUqVfKmVNE0 lbm [file] HfKjPcIdbpV1YkQkycDfC7HyErKA5YMd4MQlZ7KWH6zXMrGa3KOkB2DKIPCvBwKW4AHVy= ID Date Data Source [id number] 05/04/2021 07:13:56 AM EDT [facility] Name Value Range Interpretation Code Description Data Arabella rce(s) Supporting Document(s) Nursing Note [facility] CBGUKl2hQzIOBfVz60/FZJdtWUUwm2YfXKrxNJh6GDuqLTLcM3HsEGU4yC9pFAF3PIzCVuIuXiVlOZN9 lbm [file] AkYxAiHB9RMn1DAdM4FLY4wYVsCi3SOtNrBMIBLsLgSX0NBNg= ID Date Data Source [id number] 05/04/2021 05:39:00 AM EDT [facility] Name Value Range Interpretation Code Description Data Arabella rce(s) Supporting Document(s) Blood Urea Nitrogen 15 mg/dl 7-18 Normal (applies to non-nume ny results) [facility] Creatinine 0.78 mg/dl 0.51-0.95 Normal (applies to non-numeric resul ts) [facility] N-Acetylcysteine (NAC) and Metamizole em ve the potential to falselydepress Creatinine results. Baseline values before medication adminstration are recommended. Patients undergoing treatment with phenindione will have falselydepressed results. Patients on phenindione therapy should be tested with an alternativeCREA method.Toxic levels of acetaminophen may lead to falsely depressed results forpatient samples. Glomerular Filtration Rate 83.00 mL/min/1.73m2 [facility] GFR Reference Ranges:Normal Function or Mild Renal [...] of Health and the National KidneyFoundation. The Cropsey method used in calculating this result is traceable to IDMS standards. Glucose 86 mg/dl 70-110 Normal (applies to non-numeric resul ts) [facility] Sulfasalazine has the potential to false ly depress Glucose results. Sulfapyridine has the potential to falsely elevate Glucose results. Baseline values before medication administration are recommended. Calcium 8.5 mg/dl 8.5-10.1 Normal (applies to non-numeric resul ts) [facility] Sodium 137 mEq/L 136-145 Normal (applies to non-numeric resul ts) [facility] Potassium 3.7 mEq/L 3.5-5.1 Normal (applies to non-numeric resul ts) [facility] Chloride 109.0 mEq/L 98.0-107.0 Above high normal [facility] Anion Gap 9.7 [facility] Carbon Dioxide 22.0 mMol/L 21.0-32.0 Normal (applies to non-numeric results) [facility] The above 10 analytes were performed by [facility] [id number], ,[place] [id number] ID Date Data Source [id number] 05/04/2021 05:39:00 AM EDT [facility] Name Value Range Interpretation Code Description Data Arabella rce(s) Supporting Document(s) Magnesium 2.0 mg/dl 1.6-2.6 Normal (applies to non-numeric resul ts) [facility] The above 1 analytes [facility] [id number], ,[place] [address] ID Date Data Source [id number] 05/04/2021 05:18:00 AM EDT [facility] Name Value Range Interpretation Code Description Data Arabella rce(s) Supporting Document(s) WBC 5.61 x1000/ul 4.80-10.00 Normal (applies to non-numeric re sults) [facility] RBC 4.13 x1Mil/ul 4.20-5.40 Below low normal [facility] Hemoglobin 11.1 g/dl 12.0-16.0 Below low normal [facility] Hematocrit 34.4 % 37.0-47.0 Below low normal [facility] MCV 83.3 fL 81.0-99.0 Normal (applies to non-numeric resul ts) [facility] MCH 26.9 pg 27.0-31.0 Below low normal [facility] MCHC 32.3 g/dl 32.2-37.0 Normal (applies to non-numeric resul ts) [facility] RDW 14.6 % 11.5-14.5 Above high normal [facility] Platelet Count 235 x1000/ul 130-400 Normal (applies to non-numeric results) [facility] MPV 10.4 fL 9.4-12.4 Normal (applies to non-numeric resul ts) [facility] Neutrophils 51.3 % 40.0-74.0 Normal (applies to non-numeric resu lts) [facility] Lymphocytes 36.5 % 19.0-48.0 Normal (applies to non-numeric resu lts) [facility] Monocytes 9.3 % 3.4-9.0 Above high normal [facility] Eosinophils 2.0 % 0.0-7.0 Normal (applies to non-numeric resu lts) [facility] Basophils 0.7 % 0.0-2.0 Normal (applies to non-numeric resul ts) [facility] Immature Granulocytes 0.2 % 0.0-0.5 Normal (applies to non-nu meric results) [facility] Nucleated RBCs 0.00 % 0.00-0.20 Normal (applies to non-numeric r esults) [facility] Abs. Neutrophils 2.88 x1000/ul 1.92-8.31 Normal (applies to non-numeric results) [facility] Abs. Lymphocyte 2.05 x1000/ul 1.20-3.70 Normal (applies to non-n umeric results) [facility] Abs. Monocytes 0.52 x1000/ul 0.14-0.97 Normal (applies to non-nu meric results) [facility] Abs. Eosinophils 0.11 x1000/ul 0.00-0.76 Normal (applie s to non-numeric results) [facility] Abs. Basophils 0.04 x1000/ul 0.00-0.22 Normal (applies to non-n umeric results) [facility] Abs. Immature Gran. 0.01 x1000/ul 0.00-0.02 Normal (appl ies to non-numeric results) [facility] Abs. Nucleated RBCs 0.00 x1000/ul 0.00-0.02 Normal (appl ies to non-numeric results) [facility] The above 24 analytes were performed by [facility] [id number], ,[place] [address] ID Date Data Source [id number] 05/04/2021 01:18:34 AM EDT [facility] Name Value Range Interpretation Code Description Data Arabella rce(s) Supporting Document(s) Care Plan [facility] YVFESs6aDvRQMzIv12/UTHxsVEDzc0HnGJemFJf0KLncICDfN2XpBIZ6jM8iAQI2HMrQGnVgKeMrGIC6 [facility] [file] GNhLT7522ZUftwTvpAl+biOR0oeWOz3rrpLmM7OcUXVl0uP30Oo7n+9z32CtDG/MANAGER CARE/yZxJ9UwH41TObD [file] ICAgICAgICAgICAgICAgICAgICAgICAgICAgICAgICAgICAgICAgICAgICAgICAgICAgICAgICAgICAg ICAgDQogICAgICAgICAgICAgICAgICAgICAgICAgIC AgICAgICAgICAgICAgICAgICAgICAgICAgICAgICAgICAgICAgICAgICAgICAgICAgICAgICAgICAgIC AgICAgICAgICAgICAgDQogICAgICAgICAgICAgICAgICAgICAgICAgICAgICAgICAgICAgICAgICAgIC AgICAgICAgICAgICAgICAgICAgICAgICAgICAgICAg ICAgICAgICAgICAgICAgICAgICAgICAgDQogICAgICAgICAgICAgICAgICAgICAgICAgICAgICAgICAg ICAgICAgICAgICAgICAgICAgICAgICAgICAgICAgICAgICAgICAgICAgICAgICAgICAgICAgICAgICAg ICAgICAgDQogICAgICAgICAgICAgICAgICAgICAgIC AgICAgICAgICAgICAgICAgICAgICAgICAgICAgICAgICAgICAgICAgICAgICAgICAgICAgICAgICAgIC AgICAgICAgICAgICAgICAgDQogICAgICAgICAgICAgICAgICAgICAgICAgICAgICAgICAgICAgICAgIC AgICAgICAgICAgICAgICAgICAgICAgICAgICAgICAg ICAgICAgICAgICAgICAgICAgICAgICAgICAgDQogICAgICAgICAgICAgICAgICAgICAgICAgICAgICAg ICAgICAgICAgICAgICAgICAgICAgICAgICAgICAgICAgICAgICAgICAgICAgICAgICAgICAgICAgICAg ICAgICAgICAgDQogICAgICAgICAgICAgICAgICAgIC AgICAgICAgICAgICAgICAgICAgICAgICAgICAgICAgICAgICAgICAgICAgICAgICAgICAgICAgICAgIC AgICAgICAgICAgICAgICAgICAgDQogICAgICAgICAgICAgICAgICAgICAgICAgICAgICAgICAgICAgIC AgICAgICAgICAgICAgICAgICAgICAgICAgICAgICAg ICAgICAgICAgICAgICAgICAgICAgICAgICAgICAgDQogICAgICAgICAgICAgICAgICAgICAgICAgICAg ICAgICAgICAgICAgICAgICAgICAgICAgICAgICAgICAgICAgICAgICAgICAgICAgICAgICAgICAgICAg DJLkFXOaOOHeLYYaSTf6B1oaEPPtBHEkHT9qZYm6Sr 8+VArDDnAhUSO9foElhJ8ZAR6ft9JlIMdnPNGky7ZkYBk0RD3YMOZxTXfeNF3SMMsajh8MVOArJDZghM REr0loJdScPJG6UFInTonhCW5NREKxF0qokkZfYCWkUACDCA1ODxZsM6CdiA92KHQNKi5+DQplbmRvYm xTTwRdIIRou2BlNHl4XE8PPJIgBstzh0SuEfVpMSZR MHecUP5YSPU5FYMlKUAkUn9BGSUhL551emLmIZ9DQb0GKlJjTT8scg6GTuMfWZZeVklPUdq7GQpbPS3Z tCUjVDlUONIrSLJvXN2dJrksGyJ4YZfycQXlPlyxl9YaL9riVBPHNKU5VHniWvJrPfFwLBKzXEkeTMKR IGuBRlWmQ1Esp3MjAnG7RFDoPzIsSHomMOGjByQ5QZ 09qFlnHW4RMERwQRYqXL47YSLyGHRzNm8KAp9RRmOcQQ2scv1QDfNdSJHtAccKViw2LSujJT3VfGAqE4 DoxEQah2yWGdSqB3PDHWY3KEMgEu5WPHUvVoEzTXHoPAchKL0yAZRxEBOAnKeebiE9MT1TCA6rdnNwHX 1DHeGaPm9yYv5NPsGiZ1PgC1ZcKJSuTJRTCAejDA0L TIphUW6dTG6Kk0DLaLCydK4bvg3UKOLhBSOtOhkbju8IRlpgY7Z7vOwfLFSsIpEsMWGFSZxlRR6OCYUa FOM5PDGkGOFuXJJPXdXeU11vPU6AV9Vja18xWgG0OIXzZwArMMfjWK74rJcdpyZcmJKntQxnZW0HWb2+ DQplbmRvYmoNCnhyZWYNCjAgMzMNCjAwMDAwMDAwMD EsZqC6NlBpWd3PIJRxGBZeHHMuFsToKOPtLVQjPSgwEPVdLBNjTXI5DKTwBXFpUY5PDlIqTEJpUHMtSX ZjVHXmRCUunq6LCHWfJHJvCWG4JcUwQRWbGWEwHPqzHAQvRFUiNXC0SHQxAWNqYH7RUiVkBHIwGBNbQD TsLNDeFIOdpe4QQLAtKJEbMXD9HZZgBCJyYXJgFJfm CVCdCTV8FvcoVTPlRYHfYY7VBzZeVIGfOAH4LForVDYgKFJewy4NKWQxURRlQDWrLuExLHUuJLFkNAhc OBFvJNR3DbKvMNAwHZKqKK4URbHmSXVjKGA5RKJqNRUxZAGola4DEZWdTOGgSLQ8XCQdOORxKMLcXXgm EOZqUCB1FSIhXKTvNXAsXQ6SFyMdLBGhPXl6OfnrVN RvWVNrrf6AGSQuFKIpXJuvFWSgRQNoZVBgSQnxYDFnOPN1ZBS2IHTtQUSgCG3SCmTlSQMwSQk0FCmzVF HwEDOeds2JAKUhOCVpECC5LVTuTOMjBMKbGAyoWHBcYGAdNozmVDQiONMwPY7WAyBiHLMdSxUgHvByNK FiONOzdz8TKIQyIOFhRFAyBRVsTTIuYDVtGIxwVKLb IANsRaluZEYfSGZqEP3DIcUzGJDjPgcfNZYpAZEhWSGqtr1VXXPsGMKmAWTmAZIhNTDmQCPaQKtqPLKr UAY2EQA7UAKaNIEsRG8CUuGfMMNkWNQuVGdnGJLtOFQdkg9GWBSgNZJ9ZSPsNEMdLVYnITHuUMdmRFHp ECYvFDTsAQDgGXMaDT2CJuWeUOJtVDVuKVIcPMFuON Mdvl5HWUYxLBO3KuJ7AgYsQVLcNRWaCBchYWHpXWXbNyM2AUJnFIZoNJ1LEvOvXMsdIMJOJmd8ZPncX1 r2WNFaHf6PF1Aeo3LfRxJcIZWOXCbeKF3mbrHqYAHeFo9DI1dREsv7AbZyERK7AGYiITPuQZUgQ1AnGF PqDQOdNdFcCkkyJS0tCBu4SfE2Hqi7VWN1JFSbIdNt AKSpWBU7EWLrMuNyGYK3NgVuLJ7IVa6LBrU7DME3mKItAu9ICZJ7OFGGTyBrCF9IJOw= ID Date Data Source [id number] 05/03/2021 04:14:39 PM EDT [facility] Name Value Range Interpretation Code Description Data Arabella rce(s) Supporting Document(s) Progress Notes [facility] GZVOWy7dMeEWUtKk26/IOLetGOKle3TpSAmwDPr8QCswUDTnI6EzMXT0uF6wQEB2EYfLSaCsRoTjWAY5 lbm [file] ICAgICAgICAgICAgICAgICAgICAgICAgICAgICAgIC AgICAgICAgICAgICAgICAgICAgICAgICAgICAgICAgICAgICAgICAgICAgICAgICAgICAgICAgICAgIA 0KICAgICAgICAgICAgICAgICAgICAgICAgICAgICAgICAgICAgICAgICAgICAgICAgICAgICAgICAgIC AgICAgICAgICAgICAgICAgICAgICAgICAgICAgICAg DGXcZPRnUHQhOY7WOWUsWCTxQZWiOOYsPYFeAXBcEWKjRIBuVJCcPWZvDXIaHVEkEYTtJKSpGOTwROJz SLVkPLZiVHPtPHOmSVEdIZRvZUGgGNWdDGKxHQWyKQPjYZLaPROmMEUnDBLaCUJxMZSmGC8BCGClGRZa ICAgICAgICAgICAgICAgICAgICAgICAgICAgICAgIC AgICAgICAgICAgICAgICAgICAgICAgICAgICAgICAgICAgICAgICAgICAgICAgICAgICAgICAgICAgIC JqXN0DRTSyNRHkDYIqIBJnNVFkGHMtIPNrQFXbTZIaGLAiRTPoOTUnVSAzBEEnIBBaFDIxZZDySVQaAA AgICAgICAgICAgICAgICAgICAgICAgICAgICAgICAg ZYPyNOYaVMEaOFGwID1CKVGyYHQjYXSgQDKlLKQtTKTpGJMrXVEiWPCkNGChGJWlKWHyWMLnYMRdEIRo AHWzJZIsSILvBGMgVZOdSIJySQHdWSXvKJGmIJEyPGLbOAXjIIEqFPFdKEXuLBSwMMZfENUlPK9AFUZg ICAgICAgICAgICAgICAgICAgICAgICAgICAgICAgIC AgICAgICAgICAgICAgICAgICAgICAgICAgICAgICAgICAgICAgICAgICAgICAgICAgICAgICAgICAgIC OzFLGpWD4NKCKaWYBiWEYdHWLjVEHoACMbQLAoALYoXOFcSPDjMVTpCQSbTAHtHALeQPIdJYHxUQQsTF AgICAgICAgICAgICAgICAgICAgICAgICAgICAgICAg BFKdFBQoROLgVQOoQSRbXD2OPDTgGWNlSKBfWOLfRQAzFNHtEDYwPPWnHRLqDBMjJUDaUYBkKXFpQNCq NMQbDHRgDYKeSBJjSKEcCXCpZXHhREZoFIRvWWJsDKAcCIYaYAPjPTHoKMXuJLNiUIMeZWDjDPVyMD6I FQ82uCZst0V5FGVzQM9kcnh/Sy9EVCltexQcpMEvNR 7OZpVrAZ5yyg0BZoYvMX2zjo3ZOZaUAgQgD5Z3jWVoKESlZLOSQfAxE80rFUruIl05QQdcEPGtCzKqNR p2Io5IQpWqM5ksFMZfZsE0AYLdWlA5PRMsInJ8AOXfXwIoMNZpQEHzHD7VEKOpI150iaGyTF6XNh2XZp GzDL9nqb3XZCGrURAyIqnBNcb4XUbbVM8EtZTwzSD0 UgQeOWUJJpCtP2paq0KjKXJyMOZHZCzzYH8Hl5YknCRaFSg+Ry5GCL8pd0CdGXx5AjDfYN1rov2DRTpU KqFjY8VypRrgFSLwn4nsEQCfJA0ljOHgJSO3RA0ezyJ8TPEhMZmoRF1XZJO3HOgbPhTnHwChDETkFum6 NQMBXDoDMeKxB8Phb8LgSqW9HUVrEqJcNCzpWYDeTh Z7AV40fVbmWY0GBIWkCCSmSP34KQJkSMFyIq2FKx7YMoXnLT3ssz0VMYZgLOSiAtaDJkq6SNuuAT1RaB GhB0KjcLRey3uIAxTfO6VZXNGrIIVvMo6ZNAAqYgUgCJInYPoyGH3zLFDrTPKSrRgvikS0SN9GCY4soq PaZA4YTtBcUp6gXf9LBiApT6MeM0FeKRZzZLMMWRwx HD6QNHfgPW1sHE6Vn7ACiVWbbX2lhp1JKDBpZRFbQmgocy4DUoijD2V6rLpbRJHzLULpIFIHHMagII5S SNDpYNQ0HOI8KETjRHQSZfUpO73iOG4OB8Asf37uPsH4DHJiZwRgVWhdEB00aPzlurNsrZBieBwdPY4Q Cj4+DQplbmRvYmoNCnhyZWYNCjAgNDUNCjAwMDAwMD YgTSIwGwN0SmFsSt8JWKCaYKVfPNFyCxNiHDKbRTUdRFufDRWeFRD5MvQ1TIBeAPPoPZ3MKnNcQKSoPM atHbrrADVuYKPuba0TBODvFHJbZRW5YtUiMFOsTQMqESnmKWTyDROoHCJ0XSXjYEBuIO9VViDbCDRaSM AwKONhMWIhFFMznc3KFGPmXDKoWUmfHSCpOSBpWFEg YTptTAQqXWR9XQP0QCLkPXUbVG3JGmAuQSLjYZD7ULtqCGKcCNCgnw1PDLNlLTXaXhTqBXOyXLKwBAOt PUckFKAmWZN4GgbaCKZnWLVpGU5BNtOdEIBzUGd8MqBjMTYhVOAtft5FTLRkECEdXCpgNEVhTXLmUKSq SVngEOZyLAVjVLS0AYIfWSFeGF6DAgMnEBIsBJEzWw HpQBMqGRStzu0DFMToUSCaVeC2CGWyKXZkPAMaFFtjXCFsWJWoUtmsUVFyOYXaQG4XKhDaTGCsMGA5Ea NfERMiZZUley6QHNVzWYZzVJstXKExFSUiMUPeAMteIRSaZWF7KdEgTTXiRCPmGB8ODaXpCAOlFtW7Zc yoKQPwZZGkaq6HATFwTFQhSYK2YUHnLUOvULLuHYyt THPnBCK5SII2RFBhIELmNQ1HYeThIYTfUvL5JkidTPMyWHGaiz7WJLKpATBfCmi9ASYaTHPsUEFhKCgo ZQNiUBY1ZXK9PGLjYBHcJK9JQdStPHEpJhrtSuqiEQLsKOWqhi8QEHSvBQBhGSS3BWTkIDQsKCPjROyg TCVjMIK9QCK5DXFkJERqMQ8CWrNpJWNpHgcnZqxeMO IcORCbha3FHFPyTWFrNJS3BLAqNNOiIPLmLYbzDVUcPBO6VzD5BXMnYFMbNL1UJfEnDRMgJUOlXRwtVE JyBHZhha0BRYGyJXU7KoO6AsFpFDJjIJEbFInnYHZuPQXpGTpdKYFpXSBmIS8IQiLqEQQjOGA6UvNzQB ZgIKAdpd2YYCItHGU5Fef2SYBjKTAkSTSvPMwdPOLt GWB7BUIiJCJsNNAaIX3VQzLaGMUtNTGtTaRbEPOvVEWtin3JZHWuLWC6QAZdSoYoPKHeDTUhQTkkDHEb HFW8Nnv1EBTeKWLjBJ4OGfUhRSFdFJjeXGGnCKCrDVTgiz3FSKUnEWB1OlXrNTWzBKEqALVnTIujDREz DTX9EABgBRUtRMPvBG0FKdVrZZarOCZLJpi3YZnaJ7 w3IQQ0YL2JS0Ofm7UgEVGcULDGJFdrQF6xurYjLKFjWj3OR2rBQrzqSJGtNmKlBUZtWfIdTNCpSXHnZ8 UlYdS0SpAePMTxVl3kPCQxI7TzKAGeFSE7DZUrVbP6YRFhQHQbNhebHdVyPMXiOdGmGZ1HRq0PDvG2YI T9wGZpYy1JFRu8VURFLaYdAT7BZHx= ID Date Data Source [id number] 05/03/2021 03:38:36 PM EDT [facility] Name Value Range Interpretation Code Description Data Arabella rce(s) Supporting Document(s) Progress Notes [facility] IXPLPm5fSiKTOhTo73/JPWuwWUOal7ObJGyjEIc4FGayEKBaV8DgJCS4sZ1bWXK6TTvVAzPjRfHmCDO8 lbm MdAhfADeApXJQiIbnEZnDsAWutCoquiLMiVX1IrVB7NAPwZ60nPBYvWFVlY6FhYJF9ICt+Zo8SMXWboP UiSH8XMdjC2TbgQ+S34beM3j/3zZKA9Vk5d72pPKAm4upDZtYkbkwyGeu1ZU11jdqHd7X//tyR0sAG1i JgW2beCXLUEZlqy5pIVOQKwKwnX3SJJINAuPke/CpT [file] AgICAgICAgICAgICAgICAgICAgICAgICAgICAgICAgICAgICAgICAgICAgICAgICAgICAgICAgICAgIC AgICAgICAgICAgICAgICAgICAgICAgICAgDQogICAg ICAgICAgICAgICAgICAgICAgICAgICAgICAgICAgICAgICAgICAgICAgICAgICAgICAgICAgICAgICAg ICAgICAgICAgICAgICAgICAgICAgICAgICAgICAgICAgICAgDQogICAgICAgICAgICAgICAgICAgICAg ICAgICAgICAgICAgICAgICAgICAgICAgICAgICAgIC AgICAgICAgICAgICAgICAgICAgICAgICAgICAgICAgICAgICAgICAgICAgICAgDQogICAgICAgICAgIC AgICAgICAgICAgICAgICAgICAgICAgICAgICAgICAgICAgICAgICAgICAgICAgICAgICAgICAgICAgIC AgICAgICAgICAgICAgICAgICAgICAgICAgICAgDQog ICAgICAgICAgICAgICAgICAgICAgICAgICAgICAgICAgICAgICAgICAgICAgICAgICAgICAgICAgICAg ICAgICAgICAgICAgICAgICAgICAgICAgICAgICAgICAgICAgICAgDQogICAgICAgICAgICAgICAgICAg ICAgICAgICAgICAgICAgICAgICAgICAgICAgICAgIC AgICAgICAgICAgICAgICAgICAgICAgICAgICAgICAgICAgICAgICAgICAgICAgICAgDQogICAgICAgIC AgICAgICAgICAgICAgICAgICAgICAgICAgICAgICAgICAgICAgICAgICAgICAgICAgICAgICAgICAgIC AgICAgICAgICAgICAgICAgICAgICAgICAgICAgICAg DQogICAgICAgICAgICAgICAgICAgICAgICAgICAgICAgICAgICAgICAgICAgICAgICAgICAgICAgICAg ICAgICAgICAgICAgICAgICAgICAgICAgICAgICAgICAgICAgICAgICAgDQogICAgICAgICAgICAgICAg ICAgICAgICAgICAgICAgICAgICAgICAgICAgICAgIC AgICAgICAgICAgICAgICAgICAgICAgICAgICAgICAgICAgICAgICAgICAgICAgICAgICAgDQogICAgIC AgICAgICAgICAgICAgICAgICAgICAgICAgICAgICAgICAgICAgICAgICAgICAgICAgICAgICAgICAgIC AgICAgICAgICAgICAgICAgICAgICAgICAgICAgICAg FPGqYAg4Q5skWCKdMWItEN9hOJw9Gl5+PBzPVzKnWQR5ltMgeS2RMZ1mv0RhAKenIRWet5IpMTc2QC5N MXEaXIhwZB2FTIsgbk8KQPUiHVCjkGQEr6ajEaFpEGE2ISCsClsyKV3MMJBzT0zzmrIqAYRsMRQSVMwz OPORIPsmIUZQKAReXDKxHmCzORsbLE9Xc2GeuYW7IV o+Yo4WZL3at6AuSFr9LiHoJD7xoh3JYDoDFyAxA1BmtfY0NVP1NIRmEw7LYOOyLDXkbWQ7WZUkNNXWSn CnE8NcsQ75KJLKDt8+NPjvlzIhIpiIAsV5DSKug4CxBJb6LK9NTHCiOJl6rXIcCZRyQ0Vxi1EfFx41JG StWuviDWMmdbLSX3ZwnzKchLxoRjChF9PCGSH2QJaa BiOpOwAeIRGlYaavBRMLIRjCBoQsI1Pei7IhIqE6TCGoEjAzXOhhUJMjIzE2VT37sEiiSJ4SXLQoVZMv EC39MXR6VPQgUx5QEv9CLuVlEI7hdv9OZNihODJjYfmTEfb9YWnzFL8QaLAyC6QrbZYei4sTWlKqF0OT CBA9USSdIc8BPIPxVzNlIANsYObfHL4zOWNiQAQYwN fdnpU9TL1PBR1wjwPjLP2HUsMhWv6iGu6IGeAaL9UzY5QpCAKsEVGZEPpoHG5SVIkdVS3oJQ4Gu0KEbX GghF6kuo2WSYGgIRNoLwzyef1IBttiX3C5iHyuAXLoOSnyBRROXGxpXJ4OBBOvZIG5IXB3KaRrKPCGSn TgE25jLR3AF0Fni17vHuK3EUMiSqJgGCcuOT03cCks msHuxPXtiJjkDN2HQh0+ZWnzojSlWbeMIzjiBREYYkOjQVSBDmUlKJFqEDBcTQMxObK1CnWuFq6TMOEv NXVsDCLaWmRqRGEkEGEeQQnsHCEvNXUlYCC6SYFzBCTdCV5ALyDiPPUmJSI8NzrcEUYiVHKwzh0JIYJw WMKbOWF6CpFmHUZrKAMwXYvxMLJhYVCqEco2LRAyIV ZhJZ5NIoQsXPIjOSH8FGXiHGXyBCTlri6ATVMqXYYsRIL7XMEoUJPtLVWlMTvuRYIuLMS6Xic2MTYdDZ MnMJ4HSpNfHZXhTSl8BJgjLAHnNFSmln1LTXCmCFRqIzyiDmRxVMYqNJRhEPmwAKKqVSJ4BFN9DEGuWZ WqRG3QOhPzZDDhIEr3AIOzIJXrVLPrvt2ZXBEbTJQm BVpaXWDsFUMmILRpTDspZJDwLAHhODJwGYFuTCOmXV0HDwZzTCDpXXLpQCWrTWOsXLKyfd8IGOSlBNPb UuV4BWGmHRJnXJZqAXrtQQNxYZWkBkQ4OIJsOJYgYY1AKgYkHYMxIDJ6QsQgZZSdIYLdim0KXSHtMPPu UQi5JBTzFMAdIBDgIRvbSZDsOSP9KTy7FWMvHQQfWX 4LMeRcFLIeAiKsGIBtILCaCLGdnj6PCEKsURZzPTJ3LPVlFEIwKQWyHIsuGLIaJUL5ItxlCWBoPYQkVK 9RSlNiSMQuQoA7ZqTbHTBxOJAmtu6DEYPdGZCyDwekRWNpWTWyPOXaSGsuRHUdIKA2SZKnASCyDRDdHL 7OPoCuRGKhClp4MUVcKOWnNCZipz0TZKVoXAXvMPTh AROrKHZxXOLdAGueWUTwAPP8JfQrCAFaMJEyAR6DXkHhBARrUhcpVUUdPLFxQBBdcc6KGFWvOZEyFGGr JBVyNVXkVLXwANhfKSRtVQT7LuMsVKJeAJHuOJ5ETeGqLGTcNGO0YvGxPNFgYRWcxu6NSIYtMZX8ViJ4 QcOmAOOaSZAeHPalKBEgDKVeLBO7JRXjZSJhMI7OWg HnYEIkFQZ8VOgzFKOpGTGnpf5UCHZiTZS7Idz1MuYyCBHfZIXjAVeqDBAhUFT8Ogv0RVJdGKHhDU3YEs DqEWNqCDR3RSWoEFBeGOXwnw5ZBITwEPD2KYV7ALAxWMOyCRMuEKbqUXRlQYVbKBP7VZEbVBCbOA4XAe KoRSBlUWMuLnCwRYOeZQTpsd2KCYLuLIE5BVD4IQTd ALSpOINjXMpxLEIoLHWaEkt1NJKjYREyLJ8TMhXgPYQbVNH9MeRfLUCyXHFjfk6HOOOyYDS6WWPsKWDo WHQsERQaKFwdJFCiFBXoQFp4ACDaTWBjJH9GWjRkZNHwQSG9ODnpXTFqCUSfse4WYGSjNRN6BhOrJTLn EQOfRSFjSLf9vaScrJLnJXd0XE9IL8GmqnXzWUDTEb 8Au686WHN2ULSaZk3VE3tgPf5zTWPrRNRUMz9CDEc2NyFaRlTtKfPnDUMpPcM4GOWqKVRnRPFgXES2HN E5NTE+UKhzZYGiTgEaZuU4JwY5NanuAAG7QxZ7ZqRqRgo0VWx2XU3wKDCJAi9+DQpzdGFydHhyZWYNCj IuBkRsQZldISRDCy4Y ID Date Data Source [id number] 05/03/2021 11:35:45 AM EDT [facility] Name Value Range Interpretation Code Description Data Arabella rce(s) Supporting Document(s) Care Plan [facility] AIGRPb6iPpENFqPa83/HPQfcVOCqc9BwKLxoLQw5IXvgHNEfJ7DpBMC9jR6uDLL3XSrHHzAjQeOrNYK6 lbm [file] DQo= ID Date Data Source [id number] 05/03/2021 10:15:39 AM EDT [facility] Name Value Range Interpretation Code Description Data Arabella rce(s) Supporting Document(s) Nursing Note [facility] EXNXVy1pXyTENmUn91/PTWlgTNOir0ShAIytADl5TYpbDKKyX8UvJKJ7jT8uXNB1NQtMAhHyYdAvCEZ1 lbm [file] AnQ1OtDbHQ6CGx1EMgI8QBV3eMRfAp4BLfI3AUCMGbIgXW3WFWy= ID Date Data Source [id number] 05/03/2021 09:38:41 AM EDT [facility] Name Value Range Interpretation Code Description Data Arabella rce(s) Supporting Document(s) Care Plan [facility] ZZXXZu3aSfXQGdAt20/IULmkXBAds9ZmGSdqYQr8JZyrUCQvZ0RdHOR2vC3eYKB5QIzHRdIeAxPfIIV1 lbm [file] 9GDQo= ID Date Data Source [id number] 05/03/2021 07:07:07 AM EDT [facility] Name Value Range Interpretation Code Description Data Arabella rce(s) Supporting Document(s) Nursing Note [facility] MXEAWa2iJfLEXkYp82/VZFufXRXgv9IhPRdzAQe6TLjfZXRbI5FmODE3lN2sYFS9MTsKYeGlHhNeMYF4 lbm [file] == ID Date Data Source [id number] 05/03/2021 05:12:00 AM EDT [facility] Name Value Range Interpretation Code Description Data Arabella rce(s) Supporting Document(s) Blood Urea Nitrogen 11 mg/dl 7-18 Normal (applies to non-nume ny results) [facility] Creatinine 0.72 mg/dl 0.51-0.95 Normal (applies to non-numeric resul ts) [facility] N-Acetylcysteine (NAC) and Metamizole em ve the potential to falselydepress Creatinine results. Baseline values before medication adminstration are recommended. Patients undergoing treatment with phenindione will have falselydepressed results. Patients on phenindione therapy should be tested with an alternativeCREA method.Toxic levels of acetaminophen may lead to falsely depressed results forpatient samples. Glomerular Filtration Rate >90.00 mL/min/1.73m2 [facility] GFR Reference Ranges:Normal Function or Mild Renal Disease,if clinically at risk:>or= 60Moderately decreased:30 - 59Severely decreased:15 - 29Renal Failure:<15 Please note that the MDRD equation requires an additional adjustment forAfrican-Americans (multiply the GFR result by 1.210).Glomarular Filtration Rate (GFR) is estimated based on the MDRDequation, which assumes a steady state for creatinine (Yaneli Int Med 139/2 137-149, 2002), as recommended by the Nationaldney Disease Education Program in conjunction with the National Institutes of Health and the National KidneyFoundation. The Cropsey method used in calculating this result is traceable to IDVT standards. Glucose 69 mg/dl 70-110 Below low normal [facility] Sulfasalazine has the potential to false ly depress Glucose results. Sulfapyridine has the potential to falsely elevate Glucose results. Baseline values before medication administration are recommended. Calcium 8.5 mg/dl 8.5-10.1 Normal (applies to non-numeric resul ts) [facility] Sodium 138 mEq/L 136-145 Normal (applies to non-numeric resul ts) [facility] Potassium 3.8 mEq/L 3.5-5.1 Normal (applies to non-numeric resul ts) [facility] Chloride 110.0 mEq/L 98.0-107.0 Above high normal [facility] Anion Gap 11.3 [facility] Carbon Dioxide 20.5 mMol/L 21.0-32.0 Below low normal [facility] The above 10 analytes were performed by [facility] [id number], ,[place] [address] ID Date Data Source [id number] 05/03/2021 05:00:00 AM EDT [facility] Name Value Range Interpretation Code Description Data Arabella rce(s) Supporting Document(s) PT,Patient (on Anticoag. Therapy) 13.6 Seconds [facility] Attention: Effeciive 01/03/2020 The nor mal range for PT (on Anticoagulant Therapy) has changed:Previous normal range: 10.1-11.3New normal range: NoneDiscrepant results may occur due to anticoagulant effects such ascoumadin, direct thrombin inhibitors; argatroban (Acova), bivalirudin(Angiomax) or dabigatran (Pradaxa) or direct factor Xa inhibitors;rivaroxaban (Xarelto), apixaban (Eliquis) and edoxaban (Savaysa). INR (on Anticoagulant Therapy) 1.2 2.0-3.5 Below low normal [facility] Suggested therapeutic INR ranges for ora l anticoagulant therapy: Indication:INRPrevention and treatment of DVT and PE2.0 - 3.0Prevention of systemic embolism with atrial fib., acute UT and 2.0 -3.0 tissue prosthetic heart valves.Prevention of systemic embolism in patients with mechanical heart2.5 -3.5 valves.NOTE: The INR is only valid for patients on stable oral anticoagulanttherapy. The above 2 analytes were performed by [facility] [id number], ,[place] [address] ID Date Data Source [id number] 05/03/2021 04:56:00 AM EDT [facility] Name Value Range Interpretation Code Description Data Arabella rce(s) Supporting Document(s) WBC 5.87 x1000/ul 4.80-10.00 Normal (applies to non-numeric re sults) [facility] RBC 4.05 x1Mil/ul 4.20-5.40 Below low normal [facility] Hemoglobin 10.8 g/dl 12.0-16.0 Below low normal [facility] Hematocrit 34.2 % 37.0-47.0 Below low normal [facility] MCV 84.4 fL 81.0-99.0 Normal (applies to non-numeric resul ts) [facility] MCH 26.7 pg 27.0-31.0 Below low normal [facility] MCHC 31.6 g/dl 32.2-37.0 Below low normal [facility] RDW 15.0 % 11.5-14.5 Above high normal [facility] Platelet Count 204 x1000/ul 130-400 Normal (applies to non-numeric results) [facility] MPV 10.5 fL 9.4-12.4 Normal (applies to non-numeric resul ts) [facility] Neutrophils 50.9 % 40.0-74.0 Normal (applies to non-numeric resu lts) [facility] Lymphocytes 37.6 % 19.0-48.0 Normal (applies to non-numeric resu lts) [facility] Monocytes 8.2 % 3.4-9.0 Normal (applies to non-numeric resul ts) [facility] Eosinophils 2.2 % 0.0-7.0 Normal (applies to non-numeric resu lts) [facility] Basophils 0.9 % 0.0-2.0 Normal (applies to non-numeric resul ts) [facility] Immature Granulocytes 0.2 % 0.0-0.5 Normal (applies to non-nu meric results) [facility] Nucleated RBCs 0.00 % 0.00-0.20 Normal (applies to non-numeric r esults) [facility] Abs. Neutrophils 2.99 x1000/ul 1.92-8.31 Normal (applies to non-numeric results) [facility] Abs. Lymphocyte 2.21 x1000/ul 1.20-3.70 Normal (applies to non-n umeric results) [facility] Abs. Monocytes 0.48 x1000/ul 0.14-0.97 Normal (applies to non-nu meric results) [facility] Abs. Eosinophils 0.13 x1000/ul 0.00-0.76 Normal (applie s to non-numeric results) [facility] Abs. Basophils 0.05 x1000/ul 0.00-0.22 Normal (applies to non-n umeric results) [facility] Abs. Immature Gran. 0.01 x1000/ul 0.00-0.02 Normal (appl ies to non-numeric results) [facility] Abs. Nucleated RBCs 0.00 x1000/ul 0.00-0.02 Normal (appl ies to non-numeric results) [facility] The above 24 analytes were performed by [facility] [id number], ,[place] [address] ID Date Data Source [id number] 05/03/2021 01:45:31 AM EDT [facility] Name Value Range Interpretation Code Description Data Arabella rce(s) Supporting Document(s) Care Plan [facility] NLGDDs3wSpYDWcYe19/ZZGveRQQpr4FfVXmxDVh6MArtPDBvR9BrSLB6cA8nUKK4AViAJfFzRqJyIPY4 lbm [file] statistical clerk advertising+0AnZIybCAMiL4zUQz0+33/4WEMoxNVExb7N968bmXsdaL6lVDeT/ivZ7xhNp94+c9KB549vQn3gT gGxBw0nORVnpp/0n13xilbouAy8RgwZ5yrhhhdoxe+KZyqPiHNsWPZfh+h9xLj0YgjIr3sdklaNl3SWQ bfJzgdTKwkDM/ck+HY+JyHmQACFC2fCQn/MSDztTas dQ6+fmMEtTbxtQG73cvK/1I4/l23sFYvqCq1m4smpVeV3i+/U4MAqvLZaeZPAPlt/L2ShdO6lmz57KNl Aba6l5lHcYiG8DGDw2d4nS46Vc3/0378n/mQk5ymwxg2MPw7dq9wx1xpqdQT/kv6v8y5N1BGpzoa7r5I AFuB/G9oF1JldAH6Srg8zoH0tg3Fi+zJgvIKs5XS04 ia83vpGBaWuy4H+D7ZJFt9Xqn7bf5n7+mlo2R7e6ZnBy+tTr5eR4hJIe8ENFnl4xjxe/IinfS8x/O8h/ 4UTT/W3xWt9y77jQWvtPT+IlRNxjMjOspAs9LhSYOcWG7IOZDebTgctQygo069Wajiq9Hmdz+8hR4KB/ i45KlFT1+M6pGYgy660UL00l69q0/J5lip4XwD6bb7 [file] INAmJfn9T8PrEUXqXu9zCDGENa6+YMruqLItqOakHFWKPrVpGZTsWZriDOACRg3H ID Date Data Source [id number] 05/03/2021 12:15:00 AM EDT [facility] Name Value Range Interpretation Code Description Data Arabella rce(s) Supporting Document(s) Hemoglobin 10.6 g/dl 12.0-16.0 Below low normal [facility] The above 1 analytes were performed by [facility] [id number] [facility], ,[place] [address] ID Date Data Source [id number] 05/03/2021 12:15:00 AM EDT [facility] Name Value Range Interpretation Code Description Data Arabella rce(s) Supporting Document(s) Hematocrit 34.1 % 37.0-47.0 Below low normal [facility] The above 1 analytes were performed by [facility] [id number] [facility], ,[place] [address] ID Date Data Source [id number] 05/02/2021 10:54:25 PM EDT [facility] Name Value Range Interpretation Code Description Data Arabella rce(s) Supporting Document(s) Consults [facility] TTIUJc6kUcUAJwLp92/WEWyfWVYss5TfYFomFDh6EFklELBuN9NfMOJ9yN7xCHB4KCpTCeSwDmPkTXS3 lbm [file] ICAgICAgICAgICAgICAgICAgICAgICAgICAgICAgIC AgICAgICAgICAgICAgICAgICAgICAgICAgICAgICAgICAgICAgICAgICAgICAgICAgICAgICANCiAgIC AgICAgICAgICAgICAgICAgICAgICAgICAgICAgICAgICAgICAgICAgICAgICAgICAgICAgICAgICAgIC AgICAgICAgICAgICAgICAgICAgICAgICAgICAgICAg ICAgICANCiAgICAgICAgICAgICAgICAgICAgICAgICAgICAgICAgICAgICAgICAgICAgICAgICAgICAg ICAgICAgICAgICAgICAgICAgICAgICAgICAgICAgICAgICAgICAgICAgICAgICANCiAgICAgICAgICAg ICAgICAgICAgICAgICAgICAgICAgICAgICAgICAgIC AgICAgICAgICAgICAgICAgICAgICAgICAgICAgICAgICAgICAgICAgICAgICAgICAgICAgICAgICANCi AgICAgICAgICAgICAgICAgICAgICAgICAgICAgICAgICAgICAgICAgICAgICAgICAgICAgICAgICAgIC AgICAgICAgICAgICAgICAgICAgICAgICAgICAgICAg ICAgICAgICANCiAgICAgICAgICAgICAgICAgICAgICAgICAgICAgICAgICAgICAgICAgICAgICAgICAg ICAgICAgICAgICAgICAgICAgICAgICAgICAgICAgICAgICAgICAgICAgICAgICAgICANCiAgICAgICAg ICAgICAgICAgICAgICAgICAgICAgICAgICAgICAgIC AgICAgICAgICAgICAgICAgICAgICAgICAgICAgICAgICAgICAgICAgICAgICAgICAgICAgICAgICAgIC ANCiAgICAgICAgICAgICAgICAgICAgICAgICAgICAgICAgICAgICAgICAgICAgICAgICAgICAgICAgIC AgICAgICAgICAgICAgICAgICAgICAgICAgICAgICAg ICAgICAgICAgICANCiAgICAgICAgICAgICAgICAgICAgICAgICAgICAgICAgICAgICAgICAgICAgICAg ICAgICAgICAgICAgICAgICAgICAgICAgICAgICAgICAgICAgICAgICAgICAgICAgICAgICANCiAgICAg ICAgICAgICAgICAgICAgICAgICAgICAgICAgICAgIC AgICAgICAgICAgICAgICAgICAgICAgICAgICAgICAgICAgICAgICAgICAgICAgICAgICAgICAgICAgIC AgICANCjw/jUGvD4eesWFgloG3L5fqCv2WDv0LNF0rk6YwXRAjKWkbrhZqKyyPTcErSWIhDboCRhw5ZH nxPV4BzFMlB7BtN7AsMOfhMX8UCWQxRNAmfGQhPKRc METvAuB6NAKlGSrjAQ9XfNKqNPuyVJKaBYThTrAsFXCpMTPeSUQsQKIiSCOMDMCzVTGvAkGjYDMjNZFs WVswIZBOWY2LVlZlR3EjhC33GIjDHd3+XSrhzmUlIlqJQcHsQTDrg9ZhGNa0VJ0GEQSlYdcwb1YpCTOg TDTOBHwkRE6CDPB2QZZzSELdSk7ZWLUrX116vsPxFK 1INs6BFwNmSP7eit7DQFVvZVDrWfnDYkw0ZMknYQ5LpSZaVGnRc84nyJz6jrOueHEFDN8aDm5rDSTKj3 5rTRsuUF1XKWV9TJcgBwKvQvApZBHrXYe8UsHANXiIZnAjE7Lbt6KaFyY5WLMoByWgXKhqHNWiDcY5EW 47nYanVT3CPSZwTIUwYT87XRDuPMRqCe8GRu5GNoTo WM6oro5FTMRfUNSkFzlIXlo8QCwyIA6KiFQmD2KivOCqu1vHQvNvO9QJZGU6ZLMsTk5GSQIvJfGgPHCh SThwMF5nSPXkGFQExEwvalC3CY0IML6iqxKhUF1DEmZmOe8fHh2AVcKrF1DqD5ZeGIOxFWMLOLyeGI2G XTtsUZ5dON5Ee5WQmRJyfD3bbu3KDSQgBLLxWubwwt 4PMtfhB5M1dFglTYOyBKLbRBXJOWccJL1KITBbRLV1INVgQEWxQZVEGnVaU47sCO3RS1Pbv96dThL9LK OzZtPiPEkfTE41oDzwyzYijEUfkLsdST8GYm0+DQplbmRvYmoNCnhyZWYNCjAgNDMNCjAwMDAwMDAwMD JbMbG5KtKuWg9ZQRByCBTiBVGvLnHlHEPoLKGeQFjb VJShURD4DUrlEJWzZMFnHG4VBsSwNCEmQyx2KTyySZMoWIMngi2BYDSvARQsPPT4ThXyRBPrKWYrXGhn GJDmCXUmQLy2RQCaMKHdDO4OAdUwVIJfXKP4JLBdONIqOLYugl2FJYOzTLUmGhEgNbJbSHVmKRPoTRtt JDEmDLP4EQXjZIRyUFXcYM8ICuPqSQOaLGw6OrywLB HeFJYqvd7YMDDiYLTxNQA9OnRpIHQnRVMnUSqxBQVgDBYcCUN8CPOuOQYdKT0ZIrKyLHWfKCH9ZGDcYP KpERWwkr4AGCJnSRLrGfFcVQEwIPCnQUPhWZbyPBFyVMDhQcN2SHVaKBZxKK9GKzBbBJNjMEKhVGYePT BeEKYvby2HKWRiHKCcLQVuSbMgQWGtOYJrLRtzPGAb RVL0RnP3YJIhMFFtLM6RYnJjVXGoYYV3KHGoATKiROMkes6COYYxGGWgYsl5RfZyPJKaIILxSAejWXKe RMT4QJu7LHCrMIFsUM4PUzTpSAAfCIbjLpQxFTJjSOJxse3VRIKlMMSsNXNwEdFmJWUfXERvTJohGLCo EIN1JHYvSHNyJJJiNT2ESdNpGFKzRIz5HNFrBKJuCP Ldga9VBBMnTNByBIN6SsXlGKWkJCDxYEhnOONoOWCiQhN2WFJuZQMlPG6WEcMxLCFtYrZ0YCmuNHFoAL Vsiu1ZESNtRDJgIGraXnMvZHZzBJPxCSyuVRNeUYPhVQY8HOSySIHqZU7ZKiWlDYSmZeXtMGQxXCIuDB Hyhh2SQAQcCXRePJYjZjGiOXTzFSTcRCiqLJNrCPC0 GNPkWHXcHDRjUW9YIhSeFTXqAyRqJKkvGRKlGMQhtk7OFUUsHGSrGaI1GSMvHRKpGITpFCjsIICrKWS0 TPN5SLVuIHNePU0RHhOlQLUrKhq3BYsxSTXdMHDcgk5LGRNdMRQvTfK8IKWpRLLiOLUsDUpmYXSsZWF7 AVAiXUHwFSUoHD0IJeLkHRXdTnpmFIyxVZUdFAFbxo 3OZKXrVKLjMDh9SvCrGRMsFCAjZRdsTQRdBBK4TUC1URQkWZNdFZ3AJsQtQHDpQPVhZQFwOFBzTAFrhd 6ZtKXxxYvwpd8ECNdFGw2JlKfgWNEhHXveWe1yaBJ2WeJzHIOZRh9VctWxUAImCLHKPLsmOFLgJOx4JU afUkN7CXOgKXcaGVVgFBwcPbZbJ7ByMLMpW6WfZdG9 WFDcYQG1CZrsTAGnDBN0WKYnWNA2QGZkJuJ0GYAvQCS+PW5wVVu+Ix3Ab3TpruZ1jtZdQIf9KRS3Pg9M PZIUQ1KNCa== ID Date Data Source [id number] 05/02/2021 07:38:00 PM EDT [facility] Name Value Range Interpretation Code Description Data Arabella rce(s) Supporting Document(s) Hematocrit 33.3 % 37.0-47.0 Below low normal [facility] The above 1 analytes [facility] [id number], ,[place] [address] ID Date Data Source [id number] 05/02/2021 07:38:00 PM EDT [facility] Name Value Range Interpretation Code Description Data Arabella rce(s) Supporting Document(s) Hemoglobin 10.5 g/dl 12.0-16.0 Below low normal [facility] The above 1 analytes were performed by [facility] [place]note 2] Glsrihrcyp0241 [facility]St[facility] [id number],[place] [address] ID Date Data Source [id number] 05/02/2021 05:45:33 PM EDT [facility] Name Value Range Interpretation Code Description Data Arabella rce(s) Supporting Document(s) H&P [facility] NHFQFj0uMdPCPlNa15/TZWigSZNuo9WcRVmrMVd3NZusFKQoV6FcPYC6qW2dSWB6GLqLArUsNnZbXND6 lbm [file] CARLOS A/rcVbxpnGaVr2Hond3oGOWLmz/9L71DAfna9IFYTJZ7z9x+t0oY0QvORXiW9lYm2c36hHrV98+SOUo [file] dDG985MWPTxmVGCLxsRmCvT68GqjRRLr1tthr6eQjyEzawozN9e+Y+5Dp+roTF4VuQoBXfPh4gQy+Juan David [file] VhvtTb+2PhYPoHrnJfQ8IWqzQIk7Qwt3MGEbLYw5tJ7IQFD/8fCku3cNfNuc6AjSlHY87g6krOzyF/Kristian eA9gwddOtlsb4PTkZ3Znm0zRzP0bFlCiiB650tZIl+ c08e4z6yslJV7PDLupChnIVFx/GncbvHo5QJmiLn+uU+lW9PRZuPB4gbaGwJLoRU59tTmCn/jnQ3+agricultural 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 [file] IvRRoQ7x1IaJEypmoQovoXJpcHdrmvtUfrhyXg+ OZCg2t1HeyKfboHdYxGbK125WlqiwGHF3JbtByJYp1oS/X7rUJNclTGTDeLiWsVaivEh+WmqBU+FpD32 F/V3EyjBaCwnP/L8/IFik99EZBqMB1EiJMA1ThAI6PJ+JaiGQA56z35H11N1Ek2ZQ+/Bi/OHA6oLgf+m y4QdvPRxWsg/7Xi5ncw8/M9qtgHnv4DxErLyGBBYTO P3SJumRfz8VSJflkqRVkrdM1v6aDggrI5Wh7mI+al+tFZ6vRX0ZzYZndQcThcjJJOcB8xibF8imweXzY 7paAKchNFC7DAU1rD/uAois8NsSlAQnB/UeacFZyoSoT+5liYU65QfXsvCRjgkr6WZuup3s5yCDx0CID LGxXDRv+Mh6S3gxPzFF+Angel+63DJoPaL2gd+Pnx4xM [file] KdgpCtySLgqC2Qdrh3zyBh8uT+R/cq+skilled nursing//Sgz4kDTqB5r92v40M3MdCnPuXN2wwsGQXT9ON2Po78wb [file] /tM+wGqU9SfarVpQ4hy9gRWhBeqzhFxVH+dUctH+MANAGER CARE [file] EjIOnwlKMkhbQnq+o9+64gZVQJ5h7Iql7M8MzB i8yrZ6Bze+ZuQzjKjL9q1DzRM/QL8I65ongdZ1q98ThBAWOnQrWLCbaMFvE/ysXAFniQ9g9+/s+f8v9v d0SJtpZGdpGmtv0mS68q8YGPJ1OnRPh4Qmu6yBmW/vH+SzecHZDFaA4XsNFlh348/7nhkQXqDgTW92av IWHlBzY1I5nL/SmPCmytOo+vzyLAC/ijqC8TAs+gnq neYWFDf9uqJ0Bzgj+fR01H+u0pBUmoLNdERhS9QL/n0U2VtJ8Gh+YZcoXbiE4pwuboDxAZrGEDmztbuR ABWrOPANQnW0WNmQzOUzPnQkp4+3cF6E0z6VgSwRsxA9DZ/IkC6xDjNZIjsVEu/yskCJo0Pu4QvmW1G7 XCdGXXP2TZmqOJ4HnnZQQQlqXeNe/b0g3sf89VX0LX 0i/WXIKAKtVk1Qel10R/kl9dFHLEuhy0Kjna5P+T5O6WvL+DgcuT2Uoe7DSuQ8Kl1l4nSDtgoEIXlqxp kVRmqxn0iwrucg7beZOCccnuWVPUKgephld4OzKDFet+ssgx3hWp5fEjbijKox//wo+wSfuopvJ4r6qa [file] eV8h7Ynb64oBv3/uWZUfV2wJjL4Fx//58f7+6/remote inpatient coder+ygwKsifzkF0hQSeu33QrX7G7X37L1fGld17ueFy [file] C+wqq9d20f+bCpeZX3HZ1vRaq9Hne+meNzWsD [file] /H1CE+TUsMxbtnzyxoMpwK6Q1pFdd+9ckVs49p/card grader [file] abdifatah+JW0jfT2cH7viE0wH2XxzWmxI4hZBE4lMSOqB9+m+x9r4MtpAAlH44FaXSyX8C/FIDI5lvA1Y6Pop o7uHMyzBO0Mjr5Mt2cEmHRHdokAwwdly/gb447Hevd QTykUbWfJp8w+u/7KXbHFe2TQkFlvW1+Ifuq4U93eIO30wCWDHn9OnNGl5pocbw7yhXsuglOzRC4wFjq W6Cr4DHPXqu5bakTyd3YsGm/a1kccgEXjZ+yLOJh/SK19bX15lI/n8g9uWj4IycsRLbySwya1L+MNj0C wzRS2ABkgQU5SXMvjAZvWttAoVs5QOPQ9zWDweNU06 GtpT7G+EDunOEH4NqnkZYJDJHeV9BRSG/FyZUWDyV/M0rkWql1sGduaQ1+Acwc2YmVqSwA5vpC/7LdL0 f8fiDKOgQgTtSkkVIQ2Wb4aC8PQ1ji35bOLBt8siPdg9g21bVO0q38nKictrHpH9OalaZFt++AU5podp DX9cNrZIS6l+bXNnzmKPMB141daqtX6qn2bnlYDKGR yPFaVcvNg5QUo38jwGgR+9Yg8g86briCLQEX/qMJViaOsFgieENT7IkdgY9K/s6KOg8pBF/CaKwfxHmE feeW8iMFD0h+R5mmoF4P3avWKSoE9dxn6ZvE96sxGXIdQUUxhrXpOyAnBvdKu731Hr9LIW+i5GlbUPaw YU4YsgH+78/OFm/rya8SbE/PpaVi7mSsbo6JXmqaqN T/8rLjgCMyxe0T5ZUBHWBMXT5BzJnopcGtaGqyUiAvY3+0cPNKVvYYpBcV7O5eW5OgKfJetQ3HgwkVDE hjK6KmhZWLaHLQh0+mtmL1jsgrTRjuugysMbv3WNHFZ7a+fbLfqdzkamicdH7OuBGsKVQi1An+gTtmVU GDDTYai3HRf+mGLOq/SXPhIWHwBApAbZl5L8czVBn8 qrPYrs2vxc68YxBXihufcpQFQLdqsKGYaol7kkVf9zXXiV/y4OXkiExMYCEoLxcWGRPIOF6IaVc/IlFO management [file] Lf60KJfYbVE/b6xnit6zv+buJLjXeogtVf3A7p+Nurse Prn [file] ZlXrJhS2NcuSOJE7MHehhUlE0GcDoYQGNLThXm9jMDHcjV9ezbRtMAjMej4Ck+4Jnl5cZakIWbzZA/Carlos A [file] 4Wb9yp5+9fyeEGTqiTCgfjGykcZ/Kristian/t5iRWJxqOPh remote inpatient coder/Qe+ytnSJogKWi7m2Fwm/dq1nULZ+edyLe+zEvuFnP1ji4O2J9uLItR+53Z9TF7FzaUOdAefk4s/Gr [file] P4+07Mfds2EsaXfsWETxtBzDQO7yKvuuFAPcVN [file] CARLOS A+oxT3SMr6zqXVKzAPIfmWc6Wkv/SV7Uk5EcZzY8uKWROwHhOMyVZXh9aiEftQB2WM7CYvA8o1v8hcy [file] t5dtU+Qf5i5kLZyiQ8MimnKaeXLEx1F0PRZtju956HT+jSJZg4xE5G/axHWPfLkPU2Y3V1tQTqzzN/Walker Vz0i7wm+GKmZxb/vNMti+pemIiDWyM5hIWl [file] DfL6GIDv6hix1CWxYkTw5y2UFyWztnVkYJb230vS8C3OIQinbW0xlKvolvh8Ya4Cc+qiOYNjMef4+[place] [file] 97nU04dExYL95ry6HmvbpESnzBdYU18HWVIPrNE/Carlos A vyskwDQ8XtsZNDd+HCa/Wvagcpxfx2tXp/64rZm8TI0E+cj4mV605/t3rtCA05d8y1ntvtiPCJgMOykg Z/7N1YAHClkJS66WyLxLmkk2ysVNhRR5XKSDvmEwL/vuma+lp4zzWHx/zjVOZgte+eSwh1egA0Epbd58 aA3ZJClBF4JG87CGUU3pspJ8ZYlBRGxcZEzaxHUvI+ T81J967tVdpnMKBr5hijIsaQAVPzq1pa6fjU+7f5TYRbDJw2DVH7UDTZryAADj8YLatw3M9hSlJvlhdz toml17aCmF5X4V31A7IrwAt8F8yq2o6aMcm5VAz33qocXT/Hioo68G4Q8rKuaJvCx6IojT+dmtUW3JMF gfLECOWk+jhmMibBMRhXVsP6tPdMbpRXIOEIj6hm7b iZF4/qyNsJZY8TgKhLXju6TddBsZvU5CHBtsRbMXC94aC8YCISiEJWYTzsYzIvhTiXgqXCQHrjYDH2ti dGLoWxnblVOjatRPzFDtR/D0zDeieaI0Me0jSR5nGvJr7YNGBbw5v2cclcKJ55iLhCLAwTNCKwLRjO7e mGeZPFKtVyT/Okt+F6sUgvtmTB2TynNQrSLu+Y0/ [file] 3rZ6/LbQgVVlAAJKycrrNHOMOSJJCDxJSuOrZpdDLNbnS6NvW+MERCHANDISE FLOW MANAGER/8plmGlhQXj5M+ggURI1oLRH+uF HOQJ+g20c2g35X99hcxZxsj1mYNptKlL6/P39nAxb4VR5ik23Sksf5GZ2u3pu/5/PXWJzx4cStqhG+1P t/NU+IJbG5QTYI3dHaKRfZu30mg82+qX8l3ZLb0CL4 oKwuWIQ73XavHaYMMspwGuokaN4w015/s0zWgnxV8h2OVomF6lgMyXJkP66/4AaSv9w9cYpj3xJCmW9g 3dgqTAxcU9600kdk7/zc55FfN9q10diEvKYs/ruq63La1d7QgjESMnKHeL+lpxAHVZd4Rl0UG8MOwopI oD//vyBLa7Uh/PtfesOPWxlaEXTqWGZ4WFKKYjJ/Bt IAZVpkqelrz8EyiSy6LDd/gfF6rMn8wh6TTQUHzkAOR7bhirdYglyXmC+nDkcSMwtj3CwAelkF1KuEqA BukDZnXcqECZKWjMYBSanVRxGzkHl+YI7QRFUH9m7P0vzmXjEpZGFVIqnsWMi7oDz1HgZt2K/Snzt33F QZPNGSSvFRQY3W/W8DL8kINSOGiTGMCkKbE3eiLvpC [file] METROLOGY MANAGER+Lb9GoEWB8e6RdOZ2nSwm5VG1TVaCnxvlVgXcmNu [file] raPO5yidLZwbEM5gHlB/u/va13+Railroad Car Painter+kFeJl885Nh+R55cFUpbbKjsliresg8Af3urD4t5LDPFfTCRB+ [file] Rs7R9vAp/oU5G9VG//6H/pXf//tank cleaning supervisor/9TDsz55FbH8uw [file] Carlos [file] k0SArYBCh8tjwAwZquyiq5Y73i1tDe0dFhOv5KAb2etNJ60aNfMX7u4Egd8Ju2tLVsnFpsXKzCYf++METROLOGY MANAGER [file] AgICAgICAgICAgICAgICAgICAgICAgICAgICAgICAg ICAgICAgICAgICAgICAgICAgICAgICAgICAgICAgICAgICANCiAgICAgICAgICAgICAgICAgICAgICAg ICAgICAgICAgICAgICAgICAgICAgICAgICAgICAgICAgICAgICAgICAgICAgICAgICAgICAgICAgICAg ICAgICAgICAgICAgICAgICANCiAgICAgICAgICAgIC AgICAgICAgICAgICAgICAgICAgICAgICAgICAgICAgICAgICAgICAgICAgICAgICAgICAgICAgICAgIC AgICAgICAgICAgICAgICAgICAgICAgICAgICANCiAgICAgICAgICAgICAgICAgICAgICAgICAgICAgIC AgICAgICAgICAgICAgICAgICAgICAgICAgICAgICAg ICAgICAgICAgICAgICAgICAgICAgICAgICAgICAgICAgICAgICANCiAgICAgICAgICAgICAgICAgICAg ICAgICAgICAgICAgICAgICAgICAgICAgICAgICAgICAgICAgICAgICAgICAgICAgICAgICAgICAgICAg ICAgICAgICAgICAgICAgICAgICANCiAgICAgICAgIC AgICAgICAgICAgICAgICAgICAgICAgICAgICAgICAgICAgICAgICAgICAgICAgICAgICAgICAgICAgIC AgICAgICAgICAgICAgICAgICAgICAgICAgICAgICANCiAgICAgICAgICAgICAgICAgICAgICAgICAgIC AgICAgICAgICAgICAgICAgICAgICAgICAgICAgICAg ICAgICAgICAgICAgICAgICAgICAgICAgICAgICAgICAgICAgICAgICANCiAgICAgICAgICAgICAgICAg ICAgICAgICAgICAgICAgICAgICAgICAgICAgICAgICAgICAgICAgICAgICAgICAgICAgICAgICAgICAg ICAgICAgICAgICAgICAgICAgICAgICANCiAgICAgIC AgICAgICAgICAgICAgICAgICAgICAgICAgICAgICAgICAgICAgICAgICAgICAgICAgICAgICAgICAgIC AgICAgICAgICAgICAgICAgICAgICAgICAgICAgICAgICANCiAgICAgICAgICAgICAgICAgICAgICAgIC AgICAgICAgICAgICAgICAgICAgICAgICAgICAgICAg ICAgICAgICAgICAgICAgICAgICAgICAgICAgICAgICAgICAgICAgICAgICANCjw/dWTvT8ggbUAbgkI5 G7zrUj5QFz3DIV1oi2YlAXWcQJvuqlVmWyaAHzVqUFNjHllCJlx3GMerVK8KsOHsS6XeF1FlDUomLT0J OZIzSKIldVAyQTGeATEuGpP9UQXsKEmvZT4JnLDyJQ eaSPZeNQXkFyFuJWAxZIIeOEDnKTPvAHJIBFSfJMOhTcIjUUTiFJOiEPveKPZQFFJ7UGFvBxCvGErvIW 9Tz2WgjVS6GGe+Za1OEJ8gp2FcIVs7MWXaEO5gla0TGDwVZjExC2BkkdA0GYM8IEWuQs2JUCTuTRKjlE Q3WTHnQUBFTqDvE8ZfiI78GWEBRr4+DQplbmRvYmoN QwB5XAShm0BcOFd5YP4CSJVoDHs3nCUeLMIFIYP3IBTmwTffdCDIVXDonCMqDT8UTZJ5QEgvJjGaIuBo XTUiLPrdYRMKLXwLLwSmQ0Jyc0LnBqQ2AFKjPiEeKAseIKKwGsK4LG02fRjfYM8VKCWgZLLePS36CQQ5 WOBiCu5ALl2EOxNdYH4nyi2WQHAfMJYgPfgMYma8HT fnOU0HfDIaZ3XhlKDta6qJJiHqT5EOISThGZDwRj7AQQGaVoMaCBNsNSgsGK7fPOJrNBUSpRzrkuY6CL 8YXY2gzxOhPZ4NAhEtQc0iVb7AXsPvP2PlA4ThKEQwJEZESVkmTR0XRAhaNI4bCJ8Pm6CRpELofV8mci 3TSSOnJBYbCqolhp4EFkafN7P0gGimMCAxJFYvUWFS JNbxJI6EVXOyYCV5ZFJ3LzBkSSAGIoSmC90cFP9MG9Uty04gLgC2MCCpHkDjKVvoZF53zYerfuToxPZg gEbjZK0WVt2+EAslttFtBzpOHayrIRBSZbTxHNoRIqJnEHRzALKzZNMcFbU0PkIjKv1ZIEFpQXVaQGCp NkQdEVYyWFQsUSmnXFOyFkQ6GYc1XBJhESDzMF9LEy CzDTS4OhpvIITiIDGtXBSowc7RNWVfFJAwUUY4YiPjNHZjSFNjCXezGJYdVMHwRZM1BHEfJEHaXR8ZRw GiWVKmYMVnNUyzWYNoGXGtpo1XRGMjXHCjNrX6HEOqJNTkHOLeHCmiMHBvYXM3FDk0FERjYASgIY6JZm BhKSBoUPypMDGtCJHyLVLfyw0RUHKvRAFkCGT8RuZq SJDxCAVhPDrxYJGsTJKdVhG2XHXgUDMvJA6GDuQfLBSoIJT8YfOkVBJaQAZeve0AXNBtRSWdCxB6IXZk ELIhZXYeVWhxFJRxFWDyBxS4QWCmJTSiPG0QVoSoEJJsRMQlOPUuQPGlSUMant7ORJSxJSJhLkP4WHCy UVOxKYCtCQohZJBfYXNqKTN5FWMrFCBsPY0EJfSmRC KpJAGsQIAcJFJyPLVsyj3PAYMfBIHqEeXoEXRrNGFhQKZxRPcqZRWhIPD9OlQfEVFzPOSpKP4LYhGjPI QuQPjzJMotHWMsYPQims2WOEEcVHAbFmPaBUUhFOPaDFLbTRooOFOdGJL9Yul9ZYTtTVDqCR2BQqDiVT RkWFk5MBbyJPMkMXTilz4EKTBzZTElDWr1KbKvVQMa RZFuUTscMEJzGIZ5ZEV7TIVtWCZgLG5TYyOiGYLbFAn4FGjcJNEcKPMiem4SVPMqYKEwFYY6FBAlVBLg EMMrZDegFPOhDHIrBlnnTCQdFREpVZ6WHhXiMIZlWvHvTsGbRSEjYRDyln5CIOPtFMBqWPLmGsJyJNNz EZWzGXgcSOErGIBsDaP5VZWsGOFpKA7FIxTjJOJoTg A1CbBxGFUjDYBixp9MVVUeCTKvYmq8SkKxXAOwXAPnUDueKVNqVYBhLAjuHUSkJASqZL4ZKlFkWOQyXr XoFkLfTJQtAFEbbz8JFFQkYRUvSAD5UeUrOEKpDSMyYZxmIXWyXUE9AKCnEUGgBANeJM7YBxJoXCEnFm QbHyPaMQAsLENsxf3LPPFfGHKuGmK4SBFtQRIrJKBk KLjzPOPxUKN4UWRtNTWyRDDdYG3QEhXzDXA0GiQ2XSUiCWSoHRLrzv0AUCElPjNfKvx3UUItWWAuJWOe HNaqHEMmIrT3KTK0FZQqMFVyOB8QOdOsEUU3Pta1AxRdKHKfVXChla3ADFYpLzIoNSD8ExMtFZHwXAOs NCx9xrAzlZCaXGw2FE0WY4HadcQxQSzJFi9Io778DZ A6QCZjTe1CT1qpMe0xATUaTDQQZi4WMXg5CiQgTcDaYiMkC9R4EgN9KTKpJDW9LLkrHbSkDTGpO8P+ID xzBFBtJHAfEtIrPRA0EJvlEXRmRyauOFVdLAJiBvUkVR4oQUJDOp4+XVfpkKVzzHnlRKYXSmT6Csg4LK qFAcOwUB4SHTm= ID Date Data Source [id number] 05/02/2021 03:30:27 PM EDT [facility] Name Value Range Interpretation Code Description Data Arabella rce(s) Supporting Document(s) Progress Notes [facility] CKPPWs0ePbORFwLh48/QUTnrGRWcf8BhLJuuTRt1QGnyUEElL6JaKSY5iG8mRLC6NIoGQdMrOnEyWKQ8 lbm [file] B0hjJrBZbcLriiQI8ESWELC8WGZn== ID Date Data Source [id number] 05/02/2021 03:11:58 PM EDT [facility] Name Value Range Interpretation Code Description Data Arabella rce(s) Supporting Document(s) Nursing Note [facility] CPCZNs0mTdVAElJx33/DGLerTHUwz3WvNJwqRVs5ZMudMTYzH1SlTMG2zC4mBDB4PTaZQrKnXvRiYJR1 lbm [file] QeN9APSiBYOoIFCrGsQ+SK0oFPi+Ug3Wf6FzgcQ6gxIpSPctINt7Pw3PWAFZY4KHJa== ID Date Data Source [id number] 05/02/2021 03:01:14 PM EDT [facility] Name Value Range Interpretation Code Description Data Arabella rce(s) Supporting Document(s) Care Plan [facility] NKTHWr4oVzPFUlTz26/ENSupKPAob3HrZMpzGCf5XVzaTIJfD5YoBWT7uN8jZDP6PBcMYbYlUxOkPYM2 lbm [file] RfTZ8KPRo= ID Date Data Source [id number] 05/02/2021 02:32:34 PM EDT [facility] Name Value Range Interpretation Code Description Data Arabella rce(s) Supporting Document(s) Nursing Note [facility] GDNFJx6mYrSNMkBs87/BPKjiGDYie4KuINkiUDy5TMbvIDZvA6MfGZT2sB6hZNS8ONbHGrWcEgRsPCJ1 lbm [file] Yl1NTeA1TFQ2uTCuXt3UDyC7YPYYCvNhBF7LULv= ID Date Data Source [id number] 05/02/2021 01:51:03 PM EDT [facility] Name Value Range Interpretation Code Description Data Arabella rce(s) Supporting Document(s) Progress Notes [facility] PHLXYw5kGhVHOxQv53/NIXvxYLFsu4LnIYmbHFu4ZKevMXUjE0QsQWA2qZ0wSBK0AVpNNtQiXcRuUCK9 lbm [file] m5PC0LXGF9BEGfDv0RHOKiZI9JSAUoQMJuVQYCQxGd SMYlScUfXRVsGBCGTWldKEGuK8ZxBIY5DCXbXt8FLAHoWE2JCUJuHaEtHTG+Xe0IJUSlVU8exfAriWE2 MERCHANDISER RETAIL REPRESENTATIVE+Qc3OEPDbONh8I5X5UTSoNOw5B4CVZ5DIOGSkCPcqSLlfCQZvEIl5I2K6WQHaX9SWW8Amuqftts4+ PA7TC98HBLIbBDx7B2A7xNXkK2Q9lSuBxLM1LE7TJJ 7CpUc8uQIcbT8+CD2US9KIZzXwCKo7N6H5fHOoB2F4iLpHxHV2SP3VXH2XvLHqIZHhnnOyEi3nP2AESO mXDzFIMDJ2KY4BgTBrBO4EnZZDK6AfkVCcAa9yTXsmpVKbqJ9dPl6bYXeyQI6FUdDAVXiKXTY6GK3VyV AkMQ3GwZJWJ8BvuBTgSd7jPDytgAUxuh8+NW7AGTAk Dz2EGq5+LNfcmkGjIktGRiY4ILDji0LyOZr9WZ2MPI9isPimJTW2Fo9GxAM8jIExS5mYRL8MqIUeH58u aVEcLCUtGi1AAtE2meMvpM4VNJ53oQKfa0J1PZDeO0hgQNsue88vNKezCQvQSL2tZLMWZGlxPGqqDEW1 ClJflrwqNAThLv2UGcHrUGe8sN6kdIR4GBF7EjlkrQ KnVNqcNqRmRqWwWgS7mQkymxj9WZsgPB1dFFutomlpWRGnMtn+IGgrEENsWHHaTgqKSKIuwM4ejwC3do QuYAtmxGSjKl1ge4i5JzbdHb0xUf2uVRy9PtUdJwDjUOQlWv2xwT18KSvtoyWoFi8IPyFwDVB7E2HfFe pSREY+FJntYDjpeLu6yOVyGBTeBs5BSMYpPTQxYLCi ICAgICAgICAgICAgICAgICAgICAgICAgICAgICAgICAgICAgICAgICAgICAgICAgICAgICAgICAgICAg XXQvSGBsYFBaWEImVIVgLURnMVBrATEyJPKqUGIhVB8CUGMuZRMjBJPmOHKrYFDpYADiEKEoUOFcAPSl ICAgICAgICAgICAgICAgICAgICAgICAgICAgICAgIC ZmASZaTLUqFUEmJAVfLSTjKLQjWQTrVTJwIBNxAWLhJKLaAGDpLFYuYH4VOEKhPCFlOTWgQQEmPWLbRX AgICAgICAgICAgICAgICAgICAgICAgICAgICAgICAgICAgICAgICAgICAgICAgICAgICAgICAgICAgIC WmHEFbIUIiDJIiYKJiKKApWNAfPHXjJN9EVHSxFQNj ICAgICAgICAgICAgICAgICAgICAgICAgICAgICAgICAgICAgICAgICAgICAgICAgICAgICAgICAgICAg PRZzELVwRGWbLTNnQHNnQDAbYVTjQLOeDJSkGCNnNUSaWL5KIGNzURTdGLYtGWBlETGqYQBaGGZtVBEq ICAgICAgICAgICAgICAgICAgICAgICAgICAgICAgIC LiCAKcVODrSPDvKFYjARNdRUBzHWNxSWSyZSObNDOqWVCtOVJxKBWpFAItWE8GAHHsTGEtOCDnWJVfKL AgICAgICAgICAgICAgICAgICAgICAgICAgICAgICAgICAgICAgICAgICAgICAgICAgICAgICAgICAgIC VvBLZcMEEmUGLiKYXaHLIsHPMgWRMwUIKjZB5AATVt ICAgICAgICAgICAgICAgICAgICAgICAgICAgICAgICAgICAgICAgICAgICAgICAgICAgICAgICAgICAg EHJxOOAlMUEbBRRaJGQbOFFkWERxKPXrXDPkQZLrXSKaPFFdXU9SCQFaTQLtEDJrGUKcZIVaGZIbPFKb ICAgICAgICAgICAgICAgICAgICAgICAgICAgICAgIC YnKINjHVAmDIPmUYEtEJWuHTOmKOUlBGGtJLFvVYBlYSGvYNJgFCDjDDVlDIBzTP1EHDVzXDDoGMUpSH AgICAgICAgICAgICAgICAgICAgICAgICAgICAgICAgICAgICAgICAgICAgICAgICAgICAgICAgICAgIC NiBQXoDSNaXYEeVYKhOESwMAUmHEZkIMRkCAWsAG0M ICAgICAgICAgICAgICAgICAgICAgICAgICAgICAgICAgICAgICAgICAgICAgICAgICAgICAgICAgICAg CVIfBTCrBQEzPQBrXNJcMFHvAFWmDXTwGPZwDKScMXNtZFOgPAAeHZ7JOL32nIVdr1S8OUJsYC1axyz/ Ug0ILWfxscKftLYwWU4CJgHkEL7xtj3APpKcAW5bvr 2LUNsYVlWpE8Q6eDTaNHDyBCTIBtAfS54wKNlkGv65FTffSOWrUaWgQUa8Oc5ZQiZaF0erRQWyIgW8ID NxBpNnOAwoVP4Jy2CthPLlLDg+Tk6UUS1oz5ZoXGfgPJQcGU1mbh9YPKrNYxCzX0OvttX6YKM0OKPdVt 4VMXHmOKIqoYRrYgUqMEZAKsLlP1KdwG62BPDKRo3+ NWmayjLePvzCXdT2IXKxy3AuHQe8BB0ZKJBzGBt7fVUgWGMoI9Qmj4WjLm42HLQdXdtoLgjaFqNGWNce EOV7HHfuQpSuLzHfOMBkMFj5McWJFYpXCmFoM4Xwz6EsQcF1NQPiZkOkJAqxIYMiZfS7PJ06tUkoRH1C POOxJBErVY40ZME9IRMvPe2CUl8YSkYhGT0isd7NVx tsJYSaYgiZDbf1AKkmNZ5MuNYgW8QqfXDjn4iQIyHrS3QIIXYuZSMuJf8IBKZqHdJvRIOjPCdxWU8lPL KxORXHtUyxenH2FB7ILX5zblQjSQ1AVyCnVv9bOf2RRxOkM1HtH6NlDJFmDHBUGGakGI4AKNcyDT4jUZ 0Ey1KDmZEhtS0jrc5CCQCwKVXyWvwrho4PDajjK9R2 sZteZQFsFxNbQQXAVZguCF0UMYIeQDO2WNMoBMPgFAPRExJoO06mKZ9EQ6Bhv35cGmY2LLZcEkCeVRyt BT56iMwdwrJdwPVxjBbiVC5RJj2+SQcxooCwDqgEJxfvGPYYPoFkWfiJZxEqXVKjGJOnTSLfQeM9FaSr Ge5RQCJfEVCwTRHzJkJpJWFkXUDeGKuoJVEdEAIzUG T6LSWxQUGfUT3CVdEdEHRcGwL7KlzxPWDvWNHjqh8AUFEcTKIfHCM5IrAaDAUqNURzKZcsAKKuVWMkRb C9CGHaRHXpIN9APbVdCPEzJOW2SEVcQNSqGMHeye9COIHqSMGoHpZzQSPuQUCvOAUuDEldGJBaLVBnLd CkSJUgWXDuXC4OHuFhWBQbZUD3MErsTKCyIIKpsf6F JSLeIVPrGPl6ZlIbKCTfYBMeYDieAOBhJMZ4ZOGiSWKbRSGzCK2DYvTmQSNaIRCuRyJsVRSrLNEmor1G VGOxRQAqDgY0ZXRlGASbJFMmGCjeFFUjGDG0HDkdNMDjWTJfFR1XAeJaFHPqYElhTVmhWBWpAYZhpq6A PRNoQWWyVIRqWEUiEHUrNKMbZVbhXANsSXF4TWt0HR GdJFFsLY9LOzYfCQOwFRy4CskaZURhJWQzjc9THUSpQZVxNLFwBYVxADHgUSMbDLixYHVlFAR0Fwv0PU JdOIBkMY7HQxFjOZSdQlB9AqnfLIDoROVqos4NYRKuIMCkSPqkIMNwLADtDXHoZBqnNEGhLWLxUZp2UJ UoHZHjFC0UUpXrPWJvXeS0EbzpEEMcLUJokj2JZKUm SMXsJml2VqQfNFQxAGCiWDvuXLFkYMEyMCB6FUXzBFOqJS1WEiYgCEWcOxGqJjynSPBzEUOddj0UbRTi dSrfaq7HGNzIQd8VnUqtLPB1FYsdFn8gqSReUbEnDFKQSz0PqdFpANRpVHBHDZuyGNWlMAG9DewgYAR8 KUOmVkVrOJYtQaQ9HGDgMgOgCdEqI4D4OkD9WOIgDM FvHTpvZCTcFGZ0BZEdJEE8RfQmPdPsIMJ2HRp+JL0eWNg+Oq2Ig5CzyqB6nkVwARdaHcEwNp0PVLONG5 YNCg== ID Date Data Source [id number] 05/02/2021 01:17:00 PM EDT [facility] Name Value Range Interpretation Code Description Data Arabella rce(s) Supporting Document(s) Iron Saturation 27 [facility] Iron 97 ug/dl 50-170 Normal (applies to non-numeric resul ts) [facility] Patients treated with metal-binding drug s (e.g deferoxamine) may havedepressed iron values. Total Iron-Binding Capacity 362 ug/dl 250-450 Norm al (applies to non-numeric results) [facility] The above 3 analytes were performed by [facility] [id number], ,[place] [address] ID Date Data Source [id number] 05/02/2021 01:17:00 PM EDT [facility] Name Value Range Interpretation Code Description Data Arabella rce(s) Supporting Document(s) Ferritin 9.8 ng/ml 3.0-388.0 Normal (applies to non-numeric resul ts) [facility] The above 1 analytes were performed by [facility] [id number], ,[place] [address] ID Date Data Source [id number] 05/02/2021 01:10:00 PM EDT [facility] Name Value Range Interpretation Code Description Data Arabella rce(s) Supporting Document(s) Vitamin B12 324 pg/ml 211-911 Normal (applies to non-numeric resu lts) [facility] Folate 21.37 ng/ml 5.39-9999.00 Normal (applies to non-numeric re sults) [facility] -----Interpretive Information-----Folate Deficiency: 0.35-3.37 ng/mL.Intermediate: 3.35-5.38 ng/mLNormal: >5.38 ng/mLPatients routinely receiving high-dose biotin therapy may show falselyelevated results. Additional information may be required for diagonsis.The above 2 analytes were performed by [facility] [id number], ,[place] [address] ID Date Data Source [id number] 05/02/2021 12:27:00 PM EDT [facility] Name Value Range Interpretation Code Description Data Arabella rce(s) Supporting Document(s) Hemoglobin 9.5 g/dl 12.0-16.0 Below low normal [facility] The above 1 analytes were performed by [facility] [id number], ,[place] [address] ID Date Data Source [id number] 05/02/2021 12:27:00 PM EDT [facility] Name Value Range Interpretation Code Description Data Arabella rce(s) Supporting Document(s) Hematocrit 30.7 % 37.0-47.0 Below low normal [facility] The above 1 analytes were performed by [facility] [id number], ,[place] [address] ID Date Data Source [id number] 05/02/2021 12:25:00 PM EDT [facility] Name Value Range Interpretation Code Description Data Arabella rce(s) Supporting Document(s) WBC 5.18 x1000/ul 4.80-10.00 Normal (applies to non-numeric re sults) [facility] RBC 3.71 x1Mil/ul 4.20-5.40 Below low normal [facility] Hemoglobin 9.8 g/dl 12.0-16.0 Below low normal [facility] Hematocrit 31.1 % 37.0-47.0 Below low normal [facility] MCV 83.8 fL 81.0-99.0 Normal (applies to non-numeric resul ts) [facility] MCH 26.4 pg 27.0-31.0 Below low normal [facility] MCHC 31.5 g/dl 32.2-37.0 Below low normal [facility] RDW 15.5 % 11.5-14.5 Above high normal [facility] Platelet Count 213 x1000/ul 130-400 Normal (applies to non-numeric results) [facility] MPV 10.0 fL 9.4-12.4 Normal (applies to non-numeric resul ts) [facility] Nucleated RBCs 0.00 % 0.00-0.20 Normal (applies to non-numeric r esults) [facility] Abs. Nucleated RBCs 0.00 x1000/ul 0.00-0.02 Normal (appl ies to non-numeric results) [facility] The above 12 analytes were performed by [facility] [id number], ,[place] [address] ID Date Data Source [id number] 05/02/2021 11:50:00 PM EDT [facility] Name Value Range Interpretation Code Description Data Arabella rce(s) Supporting Document(s) 01 - Product ID Red Blood Cells [facility] - Unit Number [id number] [facility] - Cross Match Compatible [facility] - Status Info Transfused [facility] - Product Code [id number] [facility] - Blood Type A Pos [facility] - Issue Date/Time [facility] - Specimen Expiration Date [facility] - Volume [address] [facility] The above 9 analytes [facility] [id number], ,[place] [address] ID Date Data Source [id number] 05/02/2021 05:35:16 AM EDT [facility] Name Value Range Interpretation Code Description Data Arabella rce(s) Supporting Document(s) Nursing End of Shift [facility] LLVWGr0mAoTXJiLh41/WACbvRWTke3JbSHbiGHj5SXctVNViG3VuGWZ0bT1sNAO8IEuOHdImKnGuXKM6 lbm [file] ZrfBVQZr+vsH48/Qrk7kGd5nxGHlDumD/zI8/p [file] ICAgICAgICAgICAgICAgICAgICAgICAgICAgICAgICAgICAgICAgICAgICAgICAgICAgICAgDQogICAg ICAgICAgICAgICAgICAgICAgICAgICAgICAgICAgIC AgICAgICAgICAgICAgICAgICAgICAgICAgICAgICAgICAgICAgICAgICAgICAgICAgICAgICAgICAgIC AgICAgDQogICAgICAgICAgICAgICAgICAgICAgICAgICAgICAgICAgICAgICAgICAgICAgICAgICAgIC AgICAgICAgICAgICAgICAgICAgICAgICAgICAgICAg ICAgICAgICAgICAgICAgDQogICAgICAgICAgICAgICAgICAgICAgICAgICAgICAgICAgICAgICAgICAg ICAgICAgICAgICAgICAgICAgICAgICAgICAgICAgICAgICAgICAgICAgICAgICAgICAgICAgICAgDQog ICAgICAgICAgICAgICAgICAgICAgICAgICAgICAgIC AgICAgICAgICAgICAgICAgICAgICAgICAgICAgICAgICAgICAgICAgICAgICAgICAgICAgICAgICAgIC AgICAgICAgDQogICAgICAgICAgICAgICAgICAgICAgICAgICAgICAgICAgICAgICAgICAgICAgICAgIC AgICAgICAgICAgICAgICAgICAgICAgICAgICAgICAg ICAgICAgICAgICAgICAgICAgDQogICAgICAgICAgICAgICAgICAgICAgICAgICAgICAgICAgICAgICAg ICAgICAgICAgICAgICAgICAgICAgICAgICAgICAgICAgICAgICAgICAgICAgICAgICAgICAgICAgICAg DQogICAgICAgICAgICAgICAgICAgICAgICAgICAgIC AgICAgICAgICAgICAgICAgICAgICAgICAgICAgICAgICAgICAgICAgICAgICAgICAgICAgICAgICAgIC AgICAgICAgICAgDQogICAgICAgICAgICAgICAgICAgICAgICAgICAgICAgICAgICAgICAgICAgICAgIC AgICAgICAgICAgICAgICAgICAgICAgICAgICAgICAg ICAgICAgICAgICAgICAgICAgICAgDQogICAgICAgICAgICAgICAgICAgICAgICAgICAgICAgICAgICAg ICAgICAgICAgICAgICAgICAgICAgICAgICAgICAgICAgICAgICAgICAgICAgICAgICAgICAgICAgICAg VAAdXKg2Q3veLTXlZCFeCY6iLRh7Wt6+DQoNCmVuZH P0xqSodV0KAF3ag4QrYQavRKVan7UbRCf0XF4CIPTmIWlyTY6NEWcjbq0BFZSyBBVtcWKXi4stCtGgIW A2HEBaIoydYQ0DBZYdD2tykpDbJBFdXKSGLV1DZaSoT7JvaE24RHTULv5+JIvublLuImpBArP7CZAzu8 EeHJa9GL7MEMZwBxdfm5FcFfExNFLVTRbzCS3HXCV8 KBK6REEhDe3YWGHcO597kgXaQD6NOc1UHvFcBS6qyv4QJtRjFBHkTjpPPnd7KSvvHT2XoIGnGUiQzJAo uS1hUSLgWSUmQrNXvKnofQSauSFIxDDbXGNaSFttepWuVZysFRENWHV8YYfxTlOzXwWsXLZyDGmiMsAG BIiASkQbU8Qeu9RvGeB8DCBzBnJpHIgkNQWwXyV0BO 13tMnbJJ7VAMJdQXUkJP27QWN0HQGfXn9YUo4ZVhKtTT0dfx1GBukaLXFwPnwKBiu3ONwjQV1YxYXjR6 UqxXNjc3eXDpYmC1EVIQFxNBLdGi5BZTGqHhXbIKFiRZbaLD3mMMNiAYSSnBxdnbL7QO5FWY9ogwSxGI 0RInHqEb1pId1XQxDcJ7HxI5AdIXYsMVENXWkcSW2A IUfsPH3iSC6Ii9WCcPGkoY5pql5NPKSpFMPlSlqosq3NIdrcU8U4zPsvLEElEfTmRKTSIDqpGD4OZFSn PRJ9QTUlPBNgTLBEVvTxP17nOM3DK8Kmc72rJsB2ASRbQzIzJLduNY99bRjxaoEekBHtiKnuJO9CSm3+ DQplbmRvYmoNCnhyZWYNCjAgMjgNCjAwMDAwMDAwMD TuVsT5GfGaXb5AUXPtMWDeBLYwIwDbUFPlQKZbKJayXXDpTOPdBYC0GHFoVOQiZB1KNxAvMWQcKjQwEW UjLXZdBFXywu3WIRBuCQZmBPA7ZgToGTWuUBThBNloWZRgCQKhXxQ1FZIeXAMsHH8YLeSnCNSkELS1Zo NsYZCwAGXjqm7KEOYvFJRxYhspCNOwBBImYLUoDOsq RWNmJTIyDSN3NJRbQQEcID4YErWaJJNaAXJtZZZzMEMyXFRjsk1FVJNnCMCcPYM2HmTyMWVzIXLlDYdp XJGtKPV5JFAoXXZlOBLiXH0VMlYkSYGlFIV1ZHIjKOObDPGiox7DKANqRCJrAjm8RVUmILEsOPNkLZuv RIZpRYD4UuE0GUTjMGIcBJ8XBzKmHMYjAKn7JPMzKA IqIZMycp0CJEXoHCHcYcx4XcHuQGOeVQQpVEeqPPToAGA1JLGtLKPaFJMwZP8MRyByZUHpPGx8FQKmLV DyGDZhig6UMMNdIACeQPBkSUAvENJzJNEiSWolQDEtGRD0HnYsDDRhYDEsMO0YBwFwFDPtSmYuUYRdMV IoGBIfxi2HCFJcBKHqNOFoCfBnNNHdNQRsXExpWFTw VMApXXR1TYTbRAJlRD7OCyGuJNYsNoM8GTMlPSBkYMMqtv2SBRTyHBOwHaV1BXJjAXZrCHYvXIdnZDOc XXAhFIN6TTXfREHrZM4TQkYbAKGsCyK1RXBoBQBqZEAmly6YnBVhhPwfgx0JCFiRXf0FhOyjIUM3NSic Bh0zgTMwYiNoUEDJBw8KhzKyRWKbNXUGOMsfUIFgMM UaFoviVXOfIHRiC6WfAFG8VYD9IsYsCKClJCAiONm8QyP9M2FhIZK4BEJsWGPzHID9QWl3KwXkLFPkJS IwNWNhODk+TU4rXUr+Kp4Ox7PhtiB8fjLrIPiaAeh5UC2SSNWZA0JOPn== ID Date Data Source [id number] 05/02/2021 09:59:00 AM EDT [facility] Name Value Range Interpretation Code Description Data Arabella rce(s) Supporting Document(s) 2nd Confirmation Type A Positive [facility] The above 1 analytes were performed by [facility] [address] [facility], ,[place] [address] ID Date Data Source [id number] 05/02/2021 06:18:00 AM EDT [facility] Name Value Range Interpretation Code Description Data Arabella rce(s) Supporting Document(s) ABO-Rh Typing A Positive [facility] Antibody Screen Negative [facility] Specimen Expires Date/Time [facility] PATIENT HISTORY Pt Hx Checked [facility] The above 4 analytes were performed by [facility] [address] [facility], ,[place] [address] ID Date Data Source [id number] 05/02/2021 05:24:00 AM EDT [facility] Name Value Range Interpretation Code Description Data Arabella rce(s) Supporting Document(s) AST 14 IU/L 15-37 Below low normal [facility] Sulfasalazine and sulfapyridine have the potential to falsely depressAspartate Aminotransferase results. Baseline values before medication administration are recommended. ALT 56 IU/L 13-56 Normal (applies to non-numeric resul ts) [facility] Sulfasalazine and sulfapyridine have the potential to falsely depressAlanine Aminotransferase results. Baseline values before medication administration are recommended. Alkaline Phosphatase 110 mIU/ml 50-136 Normal (applies to n on-numeric results) [facility] Total Bilirubin 1.40 mg/dl 0.20-1.[address] [facility] Blood Urea Nitrogen 12 mg/dl 7-18 Normal (applies to non-nume ny results) [facility] Creatinine 0.79 mg/dl 0.51-0.95 Normal (applies to non-numeric resul ts) [facility] N-Acetylcysteine (NAC) and Metamizole em ve the potential to falselydepress Creatinine results. Baseline values before medication adminstration are recommended. Patients undergoing treatment with phenindione will have falselydepressed results. Patients on phenindione therapy should be tested with an alternativeCREA method.Toxic levels of acetaminophen may lead to falsely depressed results forpatient samples. Glomerular Filtration Rate 81.00 mL/min/1.73m2 [facility] GFR Reference Ranges:Normal Function or Mild Renal [...] of Health and the National KidneyFoundation. The Cropsey method used in calculating this result is traceable to IDMS standards. Glucose 85 mg/dl 70-110 Normal (applies to non-numeric resul ts) [facility] Sulfasalazine has the potential to false ly depress Glucose results. Sulfapyridine has the potential to falsely elevate Glucose results. Baseline values before medication administration are recommended. Calcium 8.7 mg/dl 8.5-10.1 Normal (applies to non-numeric resul ts) [facility] Total Protein 7.1 g/dl 6.4-8.2 Normal (applies to non-numeric re sults) [facility] Albumin 3.1 g/dl 3.4-5.0 Below low normal [facility] Sodium 139 mEq/L 136-145 Normal (applies to non-numeric resul ts) [facility] Potassium 3.6 mEq/L 3.5-5.1 Normal (applies to non-numeric resul ts) [facility] Chloride 112.0 mEq/L 98.0-107.0 Above high normal [facility] Anion Gap 6.6 [facility] Carbon Dioxide 24.0 mMol/L 21.0-32.0 Normal (applies to non-numeric results) [facility] The above 16 analytes were performed by [facility] [address] [facility], ,[place] [address] ID Date Data Source [id number] 05/02/2021 05:16:00 AM EDT [facility] Name Value Range Interpretation Code Description Data Arabella rce(s) Supporting Document(s) Hemoglobin 9.7 g/dl 12.0-16.0 Below low normal [facility] The above 1 analytes were performed by [facility] [address] [facility], ,[place] [address] ID Date Data Source [id number] 05/02/2021 05:16:00 AM EDT [facility] Name Value Range Interpretation Code Description Data Arabella rce(s) Supporting Document(s) Hematocrit 31.7 % 37.0-47.0 Below low normal [facility] The above 1 analytes were performed by [facility] [address], ,[place] [address] ID Date Data Source [id number] 05/01/2021 11:33:00 PM EDT [facility] Name Value Range Interpretation Code Description Data Arabella rce(s) Supporting Document(s) Care Plan [facility] HOXUKv8fDmXRKoNg94/OWJmbJITvr1OoAJelJNl3WVvySDInW4CgNSN0yM7wCUB5LEaUPoHlWbCmBDBr [facility] [file] YNCg== ID Date Data Source [id number] 05/01/2021 06:29:00 PM EDT [facility] Name Value Range Interpretation Code Description Data Arabella rce(s) Supporting Document(s) SARS coronavirus 2 RNA [Presence] in Res piratory specimen by MELINDA with probe detection NEGATIVE [facility] This lab was ordered by [facility] a nd reported by [facility]. ID Date Data Source [id number] 04/28/2021 06:15:43 PM EDT [facility] Name Value Range Interpretation Code Description Data Arabella rce(s) Supporting Document(s) Nursing Note [facility] GFLJGv2uEvGYNmWo57/QHMmaTCAxc6ZaHDqpJAf2PHdwSZIkX9DlENY0pQ9uDGM4HXbACtRbRoPnMUAw lbm [file] YvhKldQSHXUtRzACg8IEfySVKHUa5E ID Date Data Source [id number] 04/28/2021 04:30:15 PM EDT [facility] Name Value Range Interpretation Code Description Data Arabella rce(s) Supporting Document(s) Discharge Summary [facility] ZDNAJq1hGhENPbKq53/NSGlzPNVyo6BaBZpyIDz4ADeyVFRpW9ZyPZO9rH4hBUI8IQfSCyUtYxCrEPGx lbm [file] AgICAvRjMgMjUgMCBSDQogICAgICAvRjQgMjggMCBS AEdeKMAfEUHdGvXkTsUqZIMXKf2XOmYmAQTdIN0fvaEtwNO9JNL+Yl0RRDSlKO0NmKIZF1OruDIxXPgb P0CHLG1WFMJ1EZ2YwWQiCS0BgTKVV0XznMAeYl0fHHEzx8MwJa3nD0TKJKZBOBGcWYzeEBwzTUEcMOg6 Y0E5NJRxL0EAO503eLKvrOk5Ky6xB8TKNAlWVzIhWL toRIgbGYHdBUg8G6K5HXCiC1GZI1FlUwFftbFjA2Q+UuAkMKWJVT9FNTMXOYo7R0I9fOHpT9P1hLoXeF E9FD2AGQ9VaTPpkHKrx93+MrCCWrGpBJUsC5IEOGCYUdFsESwyLTehYMJeONa8J1C4GSKmI2LWW6tpA1 h0ZW4+XjHMQnQeYRDuVt4DBjYjYn4QQnGmLL2qpr0H HhCxAPMaQniXRve6R7uccfa1gXCkCtT2D5W4KdM7dOQmSD5MQ2Q2pZHmWHW0UDKnlQH+Nv5Hd2PnSXJa CTq0A4zwDYXaFDEvAuDjmE50D++7sndtgYA8Y5e2ZYKZdEVlmOhXoaSiD5zOKNJ4w9T1KWr/Iw9TJJE8 bMq3zEYdGZKmUNx7iU1ofMz9UeVrIX98YBTpLRilyL 1pNuf2T4Wzo2BhFl9qDn8gyEDoQs9BUzVkKZO6stDcWcYXKpO2wBpxxdluBRQ7L0t9nMB8Vz27s0czed Uvt4RvBpT7RSloRGJaTkYonsFkCCI8shYppH2zjxFrVr7RDPDiGDxwoqSxJwWLUb9RQpOdWM39AndpnN 1ldGE+DQogICAgICAgICAgICAgICAgICAgICAgICAg ICAgICAgICAgICAgICAgICAgICAgICAgICAgICAgICAgICAgICAgICAgICAgICAgICAgICAgICAgICAg ICAgICAgICAgICAgICAgDQogICAgICAgICAgICAgICAgICAgICAgICAgICAgICAgICAgICAgICAgICAg ICAgICAgICAgICAgICAgICAgICAgICAgICAgICAgIC AgICAgICAgICAgICAgICAgICAgICAgICAgDQogICAgICAgICAgICAgICAgICAgICAgICAgICAgICAgIC AgICAgICAgICAgICAgICAgICAgICAgICAgICAgICAgICAgICAgICAgICAgICAgICAgICAgICAgICAgIC AgICAgICAgDQogICAgICAgICAgICAgICAgICAgICAg ICAgICAgICAgICAgICAgICAgICAgICAgICAgICAgICAgICAgICAgICAgICAgICAgICAgICAgICAgICAg ICAgICAgICAgICAgICAgICAgDQogICAgICAgICAgICAgICAgICAgICAgICAgICAgICAgICAgICAgICAg ICAgICAgICAgICAgICAgICAgICAgICAgICAgICAgIC AgICAgICAgICAgICAgICAgICAgICAgICAgICAgDQogICAgICAgICAgICAgICAgICAgICAgICAgICAgIC AgICAgICAgICAgICAgICAgICAgICAgICAgICAgICAgICAgICAgICAgICAgICAgICAgICAgICAgICAgIC AgICAgICAgICAgDQogICAgICAgICAgICAgICAgICAg ICAgICAgICAgICAgICAgICAgICAgICAgICAgICAgICAgICAgICAgICAgICAgICAgICAgICAgICAgICAg ICAgICAgICAgICAgICAgICAgICAgDQogICAgICAgICAgICAgICAgICAgICAgICAgICAgICAgICAgICAg ICAgICAgICAgICAgICAgICAgICAgICAgICAgICAgIC AgICAgICAgICAgICAgICAgICAgICAgICAgICAgICAgDQogICAgICAgICAgICAgICAgICAgICAgICAgIC AgICAgICAgICAgICAgICAgICAgICAgICAgICAgICAgICAgICAgICAgICAgICAgICAgICAgICAgICAgIC AgICAgICAgICAgICAgDQogICAgICAgICAgICAgICAg ICAgICAgICAgICAgICAgICAgICAgICAgICAgICAgICAgICAgICAgICAgICAgICAgICAgICAgICAgICAg PWVaDFQjDVDhGEHlPOVhVAAjIDVwPVNhVIo1O4rjOMRbTADsYX2dFDo8Fd7+WZaRGaDnSRQ3jcXgiU9V MY7vi1ZdTAtnJXKpk5RlYTc1HP7TPYWuCReuGZ8EQQ ejay4LSAGrONIgbVCKl1awJvLiKDN0QUDcUhjcOF1HDECtF1yiunNoDJDgGVXAXRlsAWWMWUxpYGUDZN JyOPExIaTmHeEuJISvEU5OAQLrX530ibIaVY4MJi0MKvXnKX8veg5UFlDmCRRkEtuPIdj7PShfIE2YtL ThmZHjZZHhZEVNRgVtB4zpr5UsPtGcNCXAYMjeAL7P a5XllOGmWIh+Ja6JQH5bl5XlPWxhUXVsJM8ahi0AEPhRRbQlO4BnrBjkGNGsr4LlUBZoLVWIeJ4bWKT4 JBQ6RFBtjzCgX7lpqo59QFOBQFVhzJC5ZfEyFiPsLcKxYQZ1UkfkYX0wVOhzXS4DOSO2BNdmGKJgAFIl E1sWPxIxUNfdLDZjfXsbBI8MEoZxH4HtqlDcfQYePX AwIFINCj4+CZbqygAnCblOPgH7CZOmq2OpLZb1TZ4GPPRnJKhdWD7WKEZudK4vQEdwLC3KPrEgTgVwHA TNQqKbX97eaDLcOHf4R6VoRbKhHEZrQdjgRMAhMTltVjCtSWSmVsIhDMhlVA8+ID4+VFtmVS6BHAjktv IeZWRyTo1VBCLbSBXnFV7iHTWnLOOkS3Z0kKezATFU YxLgK5qbpysuTF7cPZCuC102xKacpgElPQX7LCUyRy4TSHJxOQY7WJIcjIFpVhWvRZKRUVitSV7WnEHc LRF8wY7pZPmsSBMpBVMzW0iUOpYnkMsjYV88nEvvqjWnrFYzDZs+Fn5CIU5sw5QfZLw2bjSaMRtkLVC8 GJexDNNcPJFaXRKaHLQ8LGT0JBHZBxYfPBPnZHZkOS meHKZqIYDavc6NJYJfRFJyHZE7JwQpSNIaWGKbAPatNGUkSPMaTGJ9NTBcRZZlXB2NFbUhCQUhYDQoAT gpMMKqDBTytn6DIPCoPZJdFfQ0DWHsJZKjMANkQDfsCKTeZKMvYxipSAXsLYFkYT5XIfSvLNXdFOS8YN DjVFOyAGOlmj9HYJLlJBHcQUzaYnUdQUYeCYGvIItx YBFmVKO0XmBgUFQoGKXuMP7WMfOlZNDgAFd5RoTrDYWmWYPnpi3DMXOaYOMsCXb0QAEcKTYcBHSvMTwn CNQwTYKzTHhvQSFeKHTjBG7RTxZvSYOuOKXiXeOiKREzJCWsrz2FAIFtWGZlKwDlKuBiUUPcYVElXFat ZCXtNMC6MUm5JMZrDSIiAP1HOpTmAWDjNIPiWFgcHQ GuLHXujg6NEOBtAWVzLEX3UHGiCRUzPYAgMZqzHUOlQUV2MTG8RTVzQJVzSH3CVpXzKVHyXCF4JSFnFV WyLQXbfg9LUJOwFUJqKVgoHXDyOJQkEBXyVWttMHHzVHH5MLovZTFmVGTeFA3MJlUwZKBjPTobDWLjSV FoPOXojw7UNMHeCVYyVuG7HHVaLWMjXRSvLXgvWEJf ABO0GxY4UHTjRXCoYO5LYvHsYIGlOKx4GuMiGSQmZEYbjd2JUWDfGDUeJEUbRLWqUYYvFJFtONueCYGi TOP6WGfeYXCnSIWsSA2RMzMbJWCeSJd1RIQhYJSdSRGwoc4OGMPnKZZqYVw3IYNpEUFiSFDwZQdlSRXj GXFyMHX7QZGnKSQyKQ8TRePuPUCyUtYrUMBtCWNmQR Taqo0AJPJhCJRhJEBeJCQdVDImQYNcPWiaJRZxKSKnTBF7MPFdTPWuHD9NFyVxTRIlWaFqJXLwGLJjZY Argd3UMQSePNFfUhP5CXDsKUPeWJPtYGqoEAZyEVVmCYNeSJXgAZYzLZ1DFwIkKBprWCJLZwq8NVgoY7 s7YSFsHi4KK9Jmn6RfItRzQJWDIEwfCM7sugXtAEXt Rh5PN6zCUvpkMVNkYfjrZzOnOcO1EnAqQTX3QKvdTTvjJFK5WMWmWt9uGCQuBvPqZGQrLCAuWlCpBkH4 JABoJPHhG4R2WWj4JVAiQnRdLS3BCk2RJjA1XUP3uOZxOd6SKvV6IKLGQxTrRG7EQBk= ID Date Data Source [id number] 04/28/2021 03:03:23 PM EDT [facility] Name Value Range Interpretation Code Description Data Arabella rce(s) Supporting Document(s) Care Plan [facility] LPOBAc6iPwOOQtLl15/ODKnsYXHts1LoDVxiLRa4HNvvUWSlK8CaUFN5yT6cVMD5HIsPKuBcSyXeIXQl lbm [file] DQo= ID Date Data Source [id number] 04/28/2021 12:53:00 PM EDT [facility] Name Value Range Interpretation Code Description Data Arabella rce(s) Supporting Document(s) Glucose, Fingerstick 131 mg/dl 70-110 Above high normal [facility] The above 1 analytes were performed by [facility] [address], ,[place] [address] ID Date Data Source [id number] 04/28/2021 11:25:13 AM EDT [facility] Name Value Range Interpretation Code Description Data Arabella rce(s) Supporting Document(s) Nursing Note [facility] BXHUUg9kJbWBCqNh28/BMIqbQAPug3UpZRzdFBb5GUtjYBTwC8MbBGT8hR9hGUK7TGyBLiKpHfBwJZVz lbm VnPsvLXlOdTIRlNwsLTlXeDGzwLnmrrKOnJC9RdJE7YUKrL83gLGPwVHRcI0KnEUnaOk3+SQrlUXC1sl XlcW0NOQSCSOiVWyGRgn/U/eAYQkAX0l3vTQQzYHTJVGOGsDw9NHZPLkLzYAbiz8430g7sNG3VNLZJtf QdeWY+zzeHvQHwfz+hpSVjDPLP+lFbATdjePsGKrVE [file] CKUZHsVnUVIiOSmhQQNUWw8F ID Date Data Source [id number] 04/28/2021 06:07:30 AM EDT [facility] Name Value Range Interpretation Code Description Data Arabella rce(s) Supporting Document(s) Nursing Note [facility] BODGNu6zEeCCPrGc59/TMGymINRzq9BvOUoyHSm1OUydUXEeE3BxXHS1cW3aTOW3CRrJDvOaAqBoRZSi lbm [file] DfUVGgPENwHUj1OBQaIoGhCMX2GqHnWx8hHPWRPf3+FKypvWOzgZosIQUHDgBwRHS6WQspVBGWDz1M ID Date Data Source [id number] 04/28/2021 05:35:00 AM EDT [facility] Name Value Range Interpretation Code Description Data Arabella rce(s) Supporting Document(s) Glucose, Fingerstick 72 mg/dl 70-110 Normal (applies to non-num madiha results) [facility] The above 1 analytes were performed by [facility] [address], ,[place] [address] ID Date Data Source [id number] 04/28/2021 05:43:00 AM EDT [facility] Name Value Range Interpretation Code Description Data Arabella rce(s) Supporting Document(s) AST 126 IU/L 15-37 Above high normal [facility] Sulfasalazine and sulfapyridine have the potential to falsely depressAspartate Aminotransferase results. Baseline values before medication administration are recommended. ALT 193 IU/L 13-56 Above high normal [facility] Sulfasalazine and sulfapyridine have the potential to falsely depressAlanine Aminotransferase results. Baseline values before medication administration are recommended. Alkaline Phosphatase 172 mIU/ml 50-136 Above high normal [facility] Total Bilirubin 1.30 mg/dl 0.20-1.[address] [facility] Blood Urea Nitrogen 7 mg/dl 7-18 Normal (applies to non-nume ny results) [facility] Creatinine 0.75 mg/dl 0.51-0.95 Normal (applies to non-numeric resul ts) [facility] N-Acetylcysteine (NAC) and Metamizole em ve the potential to falselydepress Creatinine results. Baseline values before medication adminstration are recommended. Patients undergoing treatment with phenindione will have falselydepressed results. Patients on phenindione therapy should be tested with an alternativeCREA method.Toxic levels of acetaminophen may lead to falsely depressed results forpatient samples. Glomerular Filtration Rate 86.00 mL/min/1.73m2 [facility] GFR Reference Ranges:Normal Function or Mild Renal Disease,if clinically at risk:>or= 60Moderately decreased:30 - 59Severely decreased:15 - 29Renal Failure:<15 Please note that the MDRD equation requires an additional adjustment forAfrican-Americans (multiply the GFR result by 1.210).Glomarular Filtration Rate (GFR) is estimated based on the MDRDequation, which assumes a steady state for creatinine (Yaneli Int Med 139/2 137-149, 2002), as recommended by the Nationaldney Disease Education Program in conjunction with the National Institutes of Health and the National KidneyFoundation. The Cropsey method used in calculating this result is traceable to IDVT standards. Glucose 77 mg/dl 70-110 Normal (applies to non-numeric resul ts) [facility] Sulfasalazine has the potential to false ly depress Glucose results. Sulfapyridine has the potential to falsely elevate Glucose results. Baseline values before medication administration are recommended. Calcium 8.2 mg/dl 8.5-10.1 Below low normal [facility] Total Protein 6.5 g/dl 6.4-8.2 Normal (applies to non-numeric re sults) [facility] Albumin 2.9 g/dl 3.4-5.0 Below low normal [facility] Sodium 135 mEq/L 136-145 Below low normal [facility] Potassium 3.6 mEq/L 3.5-5.1 Normal (applies to non-numeric resul ts) [facility] Chloride 108.0 mEq/L 98.0-107.0 Above high normal [facility] Anion Gap 8.7 [facility] Carbon Dioxide 21.9 mMol/L 21.0-32.0 Normal (applies to non-numeric results) [facility] The above 16 analytes were performed by [facility] [address], ,[place] [address] ID Date Data Source [id number] 04/28/2021 04:59:00 AM EDT [facility] Name Value Range Interpretation Code Description Data Arabella rce(s) Supporting Document(s) WBC 5.64 x1000/ul 4.80-10.00 Normal (applies to non-numeric re sults) [facility] RBC 3.80 x1Mil/ul 4.20-5.40 Below low normal [facility] Hemoglobin 9.9 g/dl 12.0-16.0 Below low normal [facility] Hematocrit 31.6 % 37.0-47.0 Below low normal [facility] MCV 83.2 fL 81.0-99.0 Normal (applies to non-numeric resul ts) [facility] MCH 26.1 pg 27.0-31.0 Below low normal [facility] MCHC 31.3 g/dl 32.2-37.0 Below low normal [facility] RDW 14.4 % 11.5-14.5 Normal (applies to non-numeric resul ts) [facility] Platelet Count 253 x1000/ul 130-400 Normal (applies to non-numeric results) [facility] MPV 10.5 fL 9.4-12.4 Normal (applies to non-numeric resul ts) [facility] Neutrophils 56.6 % 40.0-74.0 Normal (applies to non-numeric resu lts) [facility] Lymphocytes 32.1 % 19.0-48.0 Normal (applies to non-numeric resu lts) [facility] Monocytes 7.6 % 3.4-9.0 Normal (applies to non-numeric resul ts) [facility] Eosinophils 3.0 % 0.0-7.0 Normal (applies to non-numeric resu lts) [facility] Basophils 0.5 % 0.0-2.0 Normal (applies to non-numeric resul ts) [facility] Immature Granulocytes 0.2 % 0.0-0.5 Normal (applies to non-nu meric results) [facility] Nucleated RBCs 0.00 % 0.00-0.20 Normal (applies to non-numeric r esults) [facility] Abs. Neutrophils 3.19 x1000/ul 1.92-8.31 Normal (applies to non-numeric results) [facility] Abs. Lymphocyte 1.81 x1000/ul 1.20-3.70 Normal (applies to non-n umeric results) [facility] Abs. Monocytes 0.43 x1000/ul 0.14-0.97 Normal (applies to non-nu meric results) [facility] Abs. Eosinophils 0.17 x1000/ul 0.00-0.76 Normal (applie s to non-numeric results) [facility] Abs. Basophils 0.03 x1000/ul 0.00-0.22 Normal (applies to non-n umeric results) [facility] Abs. Immature Gran. 0.01 x1000/ul 0.00-0.02 Normal (appl ies to non-numeric results) [facility] Abs. Nucleated RBCs 0.00 x1000/ul 0.00-0.02 Normal (appl ies to non-numeric results) [facility] The above 24 analytes were performed by [facility] [id number],[place] [address] ID Date Data Source [id number] 04/28/2021 02:02:18 AM EDT [facility] Name Value Range Interpretation Code Description Data Arabella rce(s) Supporting Document(s) Care Plan [facility] OEEGTp4oLuPWJtRq97/GLSdeXVKut4ZtMFfpDZd7HYypSTJbI5RjPDK0kG3rBSX4BCuSIiFnIxGiKRMf lbm [file] NcgPhAeAoWjdgtexSC78XI3H32MtlKPu4OWnX/F/remote inpatient coder [file] hJT+zwSvrBDo+vO5VH8sd4qj4qlKw8nl1PMvG51Q/carlos a/8SrUTNkucGja6cUurPgKCVgijcKiV8QjS88L [file] T5UXACZwReAX9CMNb= ID Date Data Source [id number] 04/28/2021 12:07:00 AM EDT [facility] Name Value Range Interpretation Code Description Data Arabella rce(s) Supporting Document(s) Glucose, Fingerstick 80 mg/dl 70-110 Normal (applies to non-num madiha results) [facility] The above 1 analytes were performed by [facility] [address], ,[place] [address] ID Date Data Source [id number] 04/27/2021 07:16:45 PM EDT [facility] Name Value Range Interpretation Code Description Data Arabella rce(s) Supporting Document(s) Nursing Note [facility] SEHURj7mKvPGPhZw50/WZTeaIQCqg3BvNJevDRh1OEhrBGSlC7LqWMF1eP2yAXG7PAvWMaRsHjSuKDA9 lbm [file] T6kYGkAt2WRuCqMSXUOhXxSM4IDTs= ID Date Data Source [id number] 04/27/2021 05:52:00 PM EDT [facility] Name Value Range Interpretation Code Description Data Arabella rce(s) Supporting Document(s) Glucose, Fingerstick 81 mg/dl 70-110 Normal (applies to non-num madiha results) [facility] The above 1 analytes were performed by [facility] [id number],[place] [address] ID Date Data Source [id number] 04/27/2021 03:06:47 PM EDT [facility] Name Value Range Interpretation Code Description Data Arabella rce(s) Supporting Document(s) Progress Notes [facility] JXJUDl6aZtJSWlJx42/OPQnrDJHai8LvUPloVSv7NJkdVCRhQ2MxOYY7yW3pSNO5ZTkLUrVsTyLnNMU4 lbm [file] ycRBWSNd4Q ID Date Data Source [id number] 04/27/2021 02:37:54 PM EDT [facility] Name Value Range Interpretation Code Description Data Arabella rce(s) Supporting Document(s) Progress Notes [facility] TXCAKr0uNlJMBvOg38/UJAhaCSEwi5KaHJhlTVl1NKhkJLKeW2LiQZV9hS5sKWZ0CVgTBuFkEdOzDQR7 lbm [file] IRxdvTRabXahYOIHNuHuWuy7FXpiWOFXMy6U ID Date Data Source [id number] 04/27/2021 02:46:00 PM EDT [facility] Name Value Range Interpretation Code Description Data Arabella rce(s) Supporting Document(s) Ferritin 17.7 ng/ml 3.0-388.0 Normal (applies to non-numeric resul ts) [facility] The above 1 analytes were performed by [facility] [email or web address], ,[place] [address] ID Date Data Source [id number] 04/27/2021 02:46:00 PM EDT [facility] Name Value Range Interpretation Code Description Data Arabella rce(s) Supporting Document(s) Iron Saturation 42 [facility] Iron 186 ug/dl 50-170 Above high normal [facility] Patients treated with metal-binding drug s (e.g deferoxamine) may havedepressed iron values. Total Iron-Binding Capacity 440 ug/dl 250-450 Norm al (applies to non-numeric results) [facility] The above 3 analytes were performed by [facility] [address], ,[place] [address] ID Date Data Source [id number] 04/27/2021 02:46:00 PM EDT [facility] Name Value Range Interpretation Code Description Data Arabella rce(s) Supporting Document(s) AST 350 IU/L 15-37 Above high normal [facility] Sulfasalazine and sulfapyridine have the potential to falsely depressAspartate Aminotransferase results. Baseline values before medication administration are recommended. ALT 301 IU/L 13-56 Above high normal [facility] Sulfasalazine and sulfapyridine have the potential to falsely depressAlanine Aminotransferase results. Baseline values before medication administration are recommended. Alkaline Phosphatase 227 mIU/ml 50-136 Above high normal [facility] Total Bilirubin 1.50 mg/dl 0.20-1.[address] [facility] Blood Urea Nitrogen 8 mg/dl 7-18 Normal (applies to non-nume ny results) [facility] Creatinine 0.70 mg/dl 0.51-0.95 Normal (applies to non-numeric resul ts) [facility] N-Acetylcysteine (NAC) and Metamizole em ve the potential to falselydepress Creatinine results. Baseline values before medication adminstration are recommended. Patients undergoing treatment with phenindione will have falselydepressed results. Patients on phenindione therapy should be tested with an alternativeCREA method.Toxic levels of acetaminophen may lead to falsely depressed results forpatient samples. Glomerular Filtration Rate >90.00 mL/min/1.73m2 [facility] GFR Reference Ranges:Normal Function or Mild Renal [...] of Health and the National KidneyFoundation. The Cropsey method used in calculating this result is traceable to IDMS standards. Glucose 86 mg/dl 70-110 Normal (applies to non-numeric resul ts) [facility] [facility] Sulfasalazine has the potential to false ly depress Glucose results. Sulfapyridine has the potential to falsely elevate Glucose results. Baseline values before medication administration are recommended. Calcium 8.6 mg/dl 8.5-10.1 Normal (applies to non-numeric resul ts) [facility] Total Protein 7.3 g/dl 6.4-8.2 Normal (applies to non-numeric re sults) [facility] Albumin 3.5 g/dl 3.4-5.0 Normal (applies to non-numeric resul ts) [facility] Sodium 136 mEq/L 136-145 Normal (applies to non-numeric resul ts) [facility] Potassium 4.5 mEq/L 3.5-5.1 Normal (applies to non-numeric resul ts) [facility] Chloride 108.0 mEq/L 98.0-107.0 Above high normal [facility] Anion Gap 12.0 [facility] Carbon Dioxide 20.5 mMol/L 21.0-32.0 Below low normal [facility] The above 16 analytes were performed by [facility] [id number], ,[place] [address] ID Date Data Source [id number] 04/27/2021 12:43:26 PM EDT [facility] Name Value Range Interpretation Code Description Data Arabella rce(s) Supporting Document(s) Consults [facility] IEYOZq6pRfDJTjHa12/FNAycPEIhx5UaOQcyTKq7NHxpADDlU9YwTPW4iB7eDSY6FTcWEhJkIxIvREH2 [facility] [file] AgICAgICAgICAgICAgICAgICAgICAgICAgICAgICAg ICAgICAgICAgICAgICAgICAgICAgICANCiAgICAgICAgICAgICAgICAgICAgICAgICAgICAgICAgICAg ICAgICAgICAgICAgICAgICAgICAgICAgICAgICAgICAgICAgICAgICAgICAgICAgICAgICAgICAgICAg ICAgICANCiAgICAgICAgICAgICAgICAgICAgICAgIC AgICAgICAgICAgICAgICAgICAgICAgICAgICAgICAgICAgICAgICAgICAgICAgICAgICAgICAgICAgIC AgICAgICAgICAgICAgICANCiAgICAgICAgICAgICAgICAgICAgICAgICAgICAgICAgICAgICAgICAgIC AgICAgICAgICAgICAgICAgICAgICAgICAgICAgICAg ICAgICAgICAgICAgICAgICAgICAgICAgICANCiAgICAgICAgICAgICAgICAgICAgICAgICAgICAgICAg ICAgICAgICAgICAgICAgICAgICAgICAgICAgICAgICAgICAgICAgICAgICAgICAgICAgICAgICAgICAg ICAgICAgICANCiAgICAgICAgICAgICAgICAgICAgIC AgICAgICAgICAgICAgICAgICAgICAgICAgICAgICAgICAgICAgICAgICAgICAgICAgICAgICAgICAgIC AgICAgICAgICAgICAgICAgICANCiAgICAgICAgICAgICAgICAgICAgICAgICAgICAgICAgICAgICAgIC AgICAgICAgICAgICAgICAgICAgICAgICAgICAgICAg ICAgICAgICAgICAgICAgICAgICAgICAgICAgICANCiAgICAgICAgICAgICAgICAgICAgICAgICAgICAg ICAgICAgICAgICAgICAgICAgICAgICAgICAgICAgICAgICAgICAgICAgICAgICAgICAgICAgICAgICAg ICAgICAgICAgICANCiAgICAgICAgICAgICAgICAgIC AgICAgICAgICAgICAgICAgICAgICAgICAgICAgICAgICAgICAgICAgICAgICAgICAgICAgICAgICAgIC AgICAgICAgICAgICAgICAgICAgICANCiAgICAgICAgICAgICAgICAgICAgICAgICAgICAgICAgICAgIC AgICAgICAgICAgICAgICAgICAgICAgICAgICAgICAg ICAgICAgICAgICAgICAgICAgICAgICAgICAgICAgICANCjw/zVAgP9ingAYgmkM8O6vjPj2VAc7AGE8z z0IaNTYmDAhtyoLxZzmEBtDhWCOaIjgCFue8DOzkOO8XkHWkF9PgL1QpBUheRR4MIQEkWWQfxNKfQAFv MIPqXiO4VRAnAFrrGS7QpLSiSIldIXOaLGVmMlUpZB DkRLFgTIDvMQKoDQPBFDXuJBLyOgEnPGVsPRKkHRqjQYCDCH5URhSqN0YrnS21QWsCTk4+DQplbmRvYm fCQjAtNWThg8VqSYk8QZ2EYJRfClwan8DbXOAfTESZUIirQP6POMO2QVUcVOSvOg0NRKKbZ061afBvAX 4GIn2IIhFaPW3gmn6XDNEfRAZnHpkJWdd0STtsDW0J iTHhUJvFj92gcNb3jfMtoXXJcVtkcJKgYFMpF8OhTdFlSZYAZFQfdMR5LnR2ZoSfAjWtDCH9UBxzTT2t FXjeYW9CHYR8VKdbUQKcHWQaJ2eTLuQsKLdlYXRxoXpuHH6LFiIaL5QwqcJskLK3IIXlUEQBJe4+DQpl shWwLqkBItDcWXUqe0LyEPu7PF8SSUIwLNuvVP2FTF MoxN0tXXswST7CJwFjDTUvDBTLZbVtN50cnWUxMEy5K9OiSvOoFNHdHmkyNZPsVQgfFoCkEYKfKaSlNO ogID4+ID4+BBicJV8IAZaioiUvVRBeNe6FRZHrEQFaNU6vSCDeEIQwQ0Q4qTeyTKEQTmFkK1gjtifdGN 4gUCFhZ824rDhaorTvTNYhCAWnYi4FLRJgPAS3ZUJl tPXyNchqEUQABPseUP5ZqYIaMSY3sZ1bFPyaCTKmUGMgZ6kGHgBffFlwMU82vCdbgbCypVEjRXg+Pg0K FZ5vp9KnKJg7tzTuQZhuGHMqCTmqJOWuPAZwFFOrYKD5FEE3DYLQJhNhVHBmRBWfHFlmOLZqNGLnfu0R OJWfTBMnLgG2MxArWHVdQYJjUVnkMUVyHWE8CVKxQP RoGWFzXZ9VNvInBEZjXHRhUIdqWVYpOBPibr0OWLFtXFCwHnEpORTaCGTzQDBeGKrmAVYoTUBaFTV7UU VtEVLdFH2FOeFzZBQcQVZeDUrgEZFqXSCzfw7HIXBtKUPuBsJvAnMdUDHfXVJpDRgxIMSyOSD0FfIrQX HhPSRfXN7CIoYuHBDcOWn3DQNiJHGrLXHfls5MNZRo JCQbIAB8CqMuXCPsGVNoWQxwGHGbCZLiPFU3DDFjBEUjMR0WIjDcFNYmHCIaPiCjKEIxIKXttl3BASAg OUFvJcZ5WRVeSIMeAETeUTfyIRPdIFQ7LLx4SHYcCLSfQM4XZuMnNUQxOXM7ZVFyDLCkFTLdls5ENMGn OLJaIWlmXHCdVDAkJRQvIYhoBRToKUY8QVV2RTFrEH UdZH8ZDaPaKMSgAMwrDBGeWBHdQHToui1FLYErQSWeOaY5ToEsPISjQDQwSPefEIKuSXQ6GQz6UTDrLT UeXR0BSoLfXCHzFXd6XlXwQJHiKIBukf7MRTFiVHWnOKTzWNKeGZWmEAMwWWtgJUNtAGF1BBH6OFWeGL ZtEG4YZrJbFMFiVBy3LiRaCJFdWNMqdh6NYVEjHJGx XXy0ZKKqUVJnRLBiAQdjCTBkIVBdEJhqANXfMQEcFL7EZpYjYWIqWgDkSrewLYHjZFTxkg2JMTYcQEUh KRTeZEPpINRfFIQnPZrsCKAbBWMxFXX8LPDjUVApPY7HStKxBFBiJfY5GkTxFQRbXKAmrg9DPIPgOXWw MFD3OIIrECLuRKOsTCgvSMVeUCX7JiD5AYBrQLKwHP 5BObZiDLWaUrT9FLlgVXNrUYUeym5UTXTlKDRgIKg3SpOiQOKxBXIlUQvuTGYmRNA0Nem5SUGwIBIsBW 0CTbTvQARnWyZ9QMIyATVqFEWiey0DNSLmCRKkRoB2YEUxROZzJZUvUYckPWTeLBA4JDEhMTQaMXUuZE 3KJmJdSMVrGjd5NHdmFIVnGXQgmf3DEGRaEVHuTIV4 HJYvSFPuSJRnDPvoZYHzHCG7PiE6SLUeDRQgYO6ZOwLpRRwvVZFOUgh2HHitX6h7CAL9Xs5WP9Kmz1Vo TWVsABBHOBylHA7rrdNfZBUwQk2HG8kKXyveMjA5SSZqQBevBMC7KSItCyS4ROOxAKEpRkcaLhyvYZ2v IBKsYjOoAAVhZPExMrQ4HHMqVHC1GMGuUuUpLPN2Ip BbDeKcBP7PZl3WJpK7KIP5sAJbQw8IRtl7JQhGDkBmFQ3PAIq= ID Date Data Source [id number] 04/27/2021 12:30:00 PM EDT [facility] Name Value Range Interpretation Code Description Data Arabella rce(s) Supporting Document(s) Amphetamines, Urine Negative Negative Normal (applies to non-nume ny results) [facility] Barbituates, Urine Negative Negative Normal (applies to non-numer ic results) [facility] Benzodiazepines, Urine Negative Negative Normal (a pplies to non-numeric results) [facility] Cannabanoids, Urine Positive Negative Abnormal (applies to non-numeric results) [facility] Cocaine, Urine Negative Negative Normal (applies to non-numeric r esults) [facility] Opiates, Urine Positive Negative Abnormal (applies to non-numeric results) [facility] PCP, Urine Negative Negative Normal (applies to non-numeric resul ts) [facility] Methadone, Urine Negative Negative Normal (applies to non-numeric results) [facility] DrugMinimum Detection Threshold (Conc.)A uqtrnfrvrf6250 ng/mLBarbiturates 200 ng/mLBenzodiazepines 200 ng/mLCannabinoids 50 ng/mLCocaine Metabolites 300 ng/mLOpiates 300 ng/mLPhencyclidine (PCP) 25 ng/mLMethadone 300 ng/mLOxycodone 100 ng/mLNOTE: Phentermine may interfere with the amphetamine analysis.NOTE: This urine drug analysis is a screening procedure. Presumptivepositive results are unconfirmed.[facility] Laboratories recommend submitting positive specimens to areference laboratory for confirmation. Oxycodone, Urine Negative Negative Normal (applies to non-numeric results) [facility] The above 9 analytes were performed by [facility] [id number], ,[place] [address] ID Date Data Source [id number] 04/27/2021 11:48:00 AM EDT [facility] Name Value Range Interpretation Code Description Data Arabella rce(s) Supporting Document(s) Glucose, Fingerstick 78 mg/dl 70-110 Normal (applies to non-num madiha results) [facility] The above 1 analytes were performed by [facility] [id number], ,[place] [address] ID Date Data Source [id number] 04/27/2021 08:10:31 AM EDT [facility] Name Value Range Interpretation Code Description Data Arabella rce(s) Supporting Document(s) Care Plan [facility] AAPMTf2fGeWOMyVq90/JYHsfEADfw6NlMVlzTSy3ERnrONCiS7NlRPP9zP4fTYN5HCfUVkCcIpLmKFR9 lbm XfWsuECdQzJXCuEsyFLgRmLPdkOvdubFQzBA5CaGB6GOBuY83uHFPgDUSsH5DbSUn6Sc6+FCgiJNZ0mh PwkU9XILWsTJsc0oEVsx/Yf+FeSiULesU1sqXAnz0EGnl1OMIDm0zlM/VIX5g1IisfJkyc19Tk2TSuZt dBt8VZMi7DEzCpH7N+3UFLhoQQyP+Il2Cd4U/g9Suo iIV0EHvfQYN6nYARzH7bIcX001AJPeTXnph6NKlu3EKNVQWTYPpHY6RAcpN4JJyFFUyEZLuC9W2V7YAD Og5AMXf6GK1I0tqnRDqKqzoovz7T71XsnbVT8CFjlXrtIiYpcINgQZmYOJsqpIcRtJnEhFAyi3GupV8g p0OQWvB3jplGqn1AefDOsKDtm7G9aBtCF76NKtXEYi u7S6xQMUaoy6mynQjX4VP6S/VHj8YIxMgOW3lSRJMtVvZBWs8or4fBIQsJkXnFESYJ43Bc3KxLnMq0Zt 6Y0dV5KolNzg6QJXVlozcmoShFW/evBC7R3GrZqJfcDEOkXcV4i7eL5xrddTDlTmSP/2fgu5vh1OrK39 ql+PzWLDcuxisndbOurI/76ho8gXo2fUbME9/dmlsr JH9DmmoECMLbc9DwgdjF7ezTEkjCrkarDQelNg1Ch8D71LclGR5mU3+FXiX7QGZNb9vPRqZ0gXIIKECM K6kvKPA2wG4tvSyUZH6Q0XkyIZyuLGWJ3Ajel7qkV9TygLimUQaHpzBrkf8tT/Madonna/Z10o97yPlv7ny8 [file] KEMcDrMsd0AKghDPYKCr6J ID Date Data Source [id number] 04/27/2021 06:03:19 AM EDT [facility] Name Value Range Interpretation Code Description Data Arabella rce(s) Supporting Document(s) Nursing Note [facility] FRZKGs9xVjQGEaMp74/SGDqiOPGfu9UvJIwmNRg9MYulCWKlJ9KpWMS1zY2hSEF2FKvUGeBeMzGhEBD3 lbm [file] g4IrKqTR3CTv0QZiB7DVG3zMDiQt3VBaFeZHKTJgSrLO3CASy= ID Date Data Source [id number] 04/27/2021 05:24:00 AM EDT [facility] Name Value Range Interpretation Code Description Data Arabella rce(s) Supporting Document(s) Glucose, Fingerstick 88 mg/dl 70-110 Normal (applies to non-num madiha results) [facility] The above 1 analytes were performed by [facility] [address], ,[place] [address] ID Date Data Source [id number] 04/27/2021 05:58:00 AM EDT [facility] Name Value Range Interpretation Code Description Data Arabella rce(s) Supporting Document(s) Blood Urea Nitrogen 9 mg/dl 7-18 Normal (applies to non-nume ny results) [facility] Creatinine 0.72 mg/dl 0.51-0.95 Normal (applies to non-numeric resul ts) [facility] N-Acetylcysteine (NAC) and Metamizole em ve the potential to falselydepress Creatinine results. Baseline values before medication adminstration are recommended. Patients undergoing treatment with phenindione will have falselydepressed results. Patients on phenindione therapy should be tested with an alternativeCREA method.Toxic levels of acetaminophen may lead to falsely depressed results forpatient samples. Glomerular Filtration Rate >90.00 mL/min/1.73m2 [facility] GFR Reference Ranges:Normal Function or Mild Renal [...] of Health and the National KidneyFoundation. The Cropsey method used in calculating this result is traceable to IDVT standards. Glucose 80 mg/dl 70-110 Normal (applies to non-numeric resul ts) [facility] Sulfasalazine has the potential to false ly depress Glucose results. Sulfapyridine has the potential to falsely elevate Glucose results. Baseline values before medication administration are recommended. Calcium 8.1 mg/dl 8.5-10.1 Below low normal [facility] Sodium 137 mEq/L 136-145 Normal (applies to non-numeric resul ts) [facility] Potassium 3.8 mEq/L 3.5-5.1 Normal (applies to non-numeric resul ts) [facility] Chloride 109.0 mEq/L 98.0-107.0 Above high normal [facility] Anion Gap 11.1 [facility] Carbon Dioxide 20.7 mMol/L 21.0-32.0 Below low normal [facility] The above 10 analytes were performed by [facility] [id number],[id number],[place] [address] ID Date Data Source [id number] 04/27/2021 05:35:00 AM EDT [facility] Name Value Range Interpretation Code Description Data Arabella rce(s) Supporting Document(s) WBC 8.06 x1000/ul 4.80-10.00 Normal (applies to non-numeric re sults) [facility] RBC 3.77 x1Mil/ul 4.20-5.40 Below low normal [facility] Hemoglobin 9.8 g/dl 12.0-16.0 Below low normal [facility] Hematocrit 31.6 % 37.0-47.0 Below low normal [facility] MCV 83.8 fL 81.0-99.0 Normal (applies to non-numeric resul ts) [facility] MCH 26.0 pg 27.0-31.0 Below low normal [facility] MCHC 31.0 g/dl 32.2-37.0 Below low normal [facility] RDW 14.4 % 11.5-14.5 Normal (applies to non-numeric resul ts) [facility] Platelet Count 233 x1000/ul 130-400 Normal (applies to non-numeric results) [facility] MPV 10.0 fL 9.4-12.4 Normal (applies to non-numeric resul ts) [facility] Neutrophils 68.6 % 40.0-74.0 Normal (applies to non-numeric resu lts) [facility] Lymphocytes 21.7 % 19.0-48.0 Normal (applies to non-numeric resu lts) [facility] Monocytes 6.8 % 3.4-9.0 Normal (applies to non-numeric resul ts) [facility] Eosinophils 1.9 % 0.0-7.0 Normal (applies to non-numeric resu lts) [facility] Basophils 0.6 % 0.0-2.0 Normal (applies to non-numeric resul ts) [facility] Immature Granulocytes 0.4 % 0.0-0.5 Normal (applies to non-nu meric results) [facility] Nucleated RBCs 0.00 % 0.00-0.20 Normal (applies to non-numeric r esults) [facility] Abs. Neutrophils 5.53 x1000/ul 1.92-8.31 Normal (applies to non-numeric results) [facility] Abs. Lymphocyte 1.75 x1000/ul 1.20-3.70 Normal (applies to non-n umeric results) [facility] Abs. Monocytes 0.55 x1000/ul 0.14-0.97 Normal (applies to non-nu meric results) [facility] Abs. Eosinophils 0.15 x1000/ul 0.00-0.76 Normal (applie s to non-numeric results) [facility] Abs. Basophils 0.05 x1000/ul 0.00-0.22 Normal (applies to non-n umeric results) [facility] Abs. Immature Gran. 0.03 x1000/ul 0.00-0.02 Above high normal [facility] Abs. Nucleated RBCs 0.00 x1000/ul 0.00-0.02 Normal (appl ies to non-numeric results) [facility] The above 24 analytes were performed by [facility] [id number], ,[place] [address] ID Date Data Source [id number] 04/27/2021 03:19:48 AM EDT [facility] Name Value Range Interpretation Code Description Data Arabella rce(s) Supporting Document(s) Care Plan [facility] MTGIBh6mPpYJSmOh08/HPVxyPRYah6MaYKyfKDr7KXzuAESoK3WzKXP6iR9iEIE7YDcQCcDsNbBnLWM3 lbm [file] ICAgICAgICAgICAgICAgICAgICAgICAgICAgICAgICAgICAgICAgICAgICAgICAgICAgICAgICAgICAg ICAgICAgICAgICAgICAgICAgICAgICAgICANCiAgIC AgICAgICAgICAgICAgICAgICAgICAgICAgICAgICAgICAgICAgICAgICAgICAgICAgICAgICAgICAgIC AgICAgICAgICAgICAgICAgICAgICAgICAgICAgICAgICAgICANCiAgICAgICAgICAgICAgICAgICAgIC AgICAgICAgICAgICAgICAgICAgICAgICAgICAgICAg ICAgICAgICAgICAgICAgICAgICAgICAgICAgICAgICAgICAgICAgICAgICAgICANCiAgICAgICAgICAg ICAgICAgICAgICAgICAgICAgICAgICAgICAgICAgICAgICAgICAgICAgICAgICAgICAgICAgICAgICAg ICAgICAgICAgICAgICAgICAgICAgICAgICAgICANCi AgICAgICAgICAgICAgICAgICAgICAgICAgICAgICAgICAgICAgICAgICAgICAgICAgICAgICAgICAgIC AgICAgICAgICAgICAgICAgICAgICAgICAgICAgICAgICAgICAgICANCiAgICAgICAgICAgICAgICAgIC AgICAgICAgICAgICAgICAgICAgICAgICAgICAgICAg ICAgICAgICAgICAgICAgICAgICAgICAgICAgICAgICAgICAgICAgICAgICAgICAgICANCiAgICAgICAg ICAgICAgICAgICAgICAgICAgICAgICAgICAgICAgICAgICAgICAgICAgICAgICAgICAgICAgICAgICAg ICAgICAgICAgICAgICAgICAgICAgICAgICAgICAgIC ANCiAgICAgICAgICAgICAgICAgICAgICAgICAgICAgICAgICAgICAgICAgICAgICAgICAgICAgICAgIC AgICAgICAgICAgICAgICAgICAgICAgICAgICAgICAgICAgICAgICAgICANCiAgICAgICAgICAgICAgIC AgICAgICAgICAgICAgICAgICAgICAgICAgICAgICAg ICAgICAgICAgICAgICAgICAgICAgICAgICAgICAgICAgICAgICAgICAgICAgICAgICAgICANCiAgICAg ICAgICAgICAgICAgICAgICAgICAgICAgICAgICAgICAgICAgICAgICAgICAgICAgICAgICAgICAgICAg ICAgICAgICAgICAgICAgICAgICAgICAgICAgICAgIC AgICANCjw/bRSwF1lkcJBvzcL8E7tzHm0XXs7YUL3sp2ZzJMEtOVgtixByQtuFXpIfHNVfDuyHXzp7YQ woMM1FrWCyM0JzE3GrNGcmBV2LLYFbYBYszAAsDLHqXXVxFxA5LHJiZFnmDJ1PhOYcNKruHUUoWMPrUd FxCUKvWJ9DYBWtG920juXxXn5QVd9LKqHrMD3kks6J HtBgUUAtWrmVClr2MFymQV8TjSWswZEoSkHkIOXTGhViV2drk5ErGrUhTJKVVMmhPT4Xw5MpnABrDVf+ Kn4BAK4yl9KhYZyzYpHsQY0jkr5UDKtAWkTkK8LtoGfoZTEmnxDsTXmnugWzaAOPwGjxpXRcM6ZqkE86 nOHpQXRUHfZztYX2MbJ2WlLsJlCmUPE3EBnnUC2zSS dqIF0PCJI9YUghAKBoITZrD5xQFeCdCIqxVIStcAjrST8QNtFfJ5RafpFxwKFnXQKqYFVYHm0+DQplbm VhGlcZGpA7MIYpx6VtUPl6FF7ERXQbEBxlQQ1WEVHwxF8aVTqjCW7UVxDnQsAeZUIAQlZbZ62rtKLkYI n7R6SfKsZrJHZyEebbVUBfZStlGrKqGOHeZnAsMLre ID4+ID4+DErxMW2RHRvjciHuTLZfPq2KRFFyUBHtQD9mDFCtTQWhE3T0eJykPSPBFmEkQ3iljqyhML9o SPIkJ969eGjivdRiLFB0CVDsPj2OZFYcDOT6GDNmxYYkGjXkCOGBDPbrWO7SmFGjTSL0mK9vJHbwZKTu LIZmI9oIAiDavSjiGJ58gPyqdvCywBJzXUl+Pg0KZW 1fv7EjKAn3muEiGKznPUS5JDgdQTJaQQUgBWNoPCR8GGP5HQWOFzReFPZhRUMyBYqnTGVaPEMaft3OFT FkCOU3YRV7TQNaAQRfPTAjVDueSQBdSBX1OEToDHFwDOIxLN7GEePtHGSoAWGqUQblZOGqNLFlys7ARZ AwMDAwMzMwOSAwMDAwMCBuDQowMDAwMDAzNTEzIDAw KNPdLF3DElKtMPNvJLBfUYPbAMYsQNHjhn6SHFWyZOWqOMVsRkRcZUVzHFUkRMavYZYzSHB4XzN5UQDb RLYbYB5OSgBlLBImVPR7VfBiKRSyLCEoqh0UYVIyMMKvHqB2EWEpKALaHJGtFKowANYiXZA6JvLkVLGp DDWaBO3XJpPjMMGsPZd0NIyyHWXcJAMebc3KFKKdIP HfYff7YJLdNOMlCTLwMMazWFRaVWOgEgEcAKOpPCGtTF2NMpVdVIUaEaA1PIKzHKQnYQJbwb3ZFFIfJL NsXNy3YYGsDSYeTXLwFTswEPBaLCVwVBE7ZDGdMYJrRG1GUlJfRSArBpMxDSVwHRDiYVUxop0RQNYbQS TvFvA7MyDaBXSrYMHeOWgsDDZhNAYrNdckHVGjWXFq NS8UPeLgHHJsJiD3WifjCIEsJWBnkb8PMDXzIXXlPdGpXHKvBWFlULDaXZinHXPeWQZdBuQ4JYHlNEGn FT1HIkFqSQOlYfG9PpwiAMMmLWTqdd4PDGUvDTU1DLS1FmJaHECgOZTfNVcnSMYqZLZhTEU9DRYgENQz OD7ZJzOfGHKvCOEmGdGaSCIuTXAukk8VZWDtWAK5Jd J0MNOqPCLaJPNcDZfkUMIpEYLsAUV4JZNaKUDeBL3TNcGeBWKiCDJ4SMxeMBUlGUNdil8XDSFuOYG4Uk h3DGCsCXTtMSFsZNolFSFmGMD0XRX0PYYqSGBcVL1FSbZzOBKrYWW4MESiYWZmJNSplv9URCAlMOV7Mo T4JoKcSDKpTKXmZXsgXIDpDTJ5QDD8XLKqFUHpJE9I OgLzCSBdMTLkCbKlNJXlCYTvwg3LcCHifVyhpq8UQYwJCl7LfIefLXL0QQqyNg2acARuKuCpZXFQSx8Y lnAgZTGcAEWXTJejIBVjVEJkNUFtBqwxKIS2QvnrJKV1HENbOZH9CjKtXZnkLqQyDoX4XKWtXuAtLJG3 UJOfFWG5ScinZRO0QptqGkHnD9LhJ6C+KW4hVHh+Eb2Xm9JucaM6bcWoPVu9QeQlRc3ANSLYW6JMBj== ID Date Data Source [id number] 04/26/2021 11:50:00 PM EDT [facility] Name Value Range Interpretation Code Description Data Arabella rce(s) Supporting Document(s) Glucose, Fingerstick 99 mg/dl 70-110 Normal (applies to non-num madiha results) [facility] The above 1 analytes were performed by [facility] [id number], ,[place] [address] ID Date Data Source [id number] 04/26/2021 06:50:00 PM EDT [facility] Name Value Range Interpretation Code Description Data Arabella rce(s) Supporting Document(s) Glucose, Fingerstick 114 mg/dl 70-110 Above high normal [facility] The above 1 analytes were performed by [facility] [address], ,[place] [address] ID Date Data Source [id number] 04/26/2021 06:45:07 PM EDT [facility] Name Value Range Interpretation Code Description Data Arabella rce(s) Supporting Document(s) Progress Notes [facility] JBWVUm5jOdCVEdEm55/ERIceVWKxi3UwLQkkOCy7RFfeEGQnZ4IyZGX5yH0aIVH1XDsLOfCsYjDdFWU1 lbm [file] CALIBRATION TESTER/fLYVRd7TPvq3eX3Km8703I9ie7mOC//yocAgrz6M52YY29+vP7/3b6j/gfsvV7eqjzLidCPs6H0+ [file] IR5wUFe+Xb2Ij9BqetC5dgNbNFkrDWT6Fi1SHQWRR5WHEh== ID Date Data Source [id number] 04/26/2021 01:21:29 PM EDT [facility] Name Value Range Interpretation Code Description Data Arabella rce(s) Supporting Document(s) Care Plan [facility] NLHKGk1xPeVFBoBs48/AHLcaNWEfh2LdJEsmZYg0WUgoVMHfO4OsVAU4rU9bWXU0UFzKCtSaFlLjNAJ5 lbm [file] AgICAgICAgICAgICAgICAgICAgICAgICAgICAgICAgICAgICAgICAgICAgICAgICANCiAgICAgICAgIC AgICAgICAgICAgICAgICAgICAgICAgICAgICAgICAg ICAgICAgICAgICAgICAgICAgICAgICAgICAgICAgICAgICAgICAgICAgICAgICAgICAgICAgICAgICAN CiAgICAgICAgICAgICAgICAgICAgICAgICAgICAgICAgICAgICAgICAgICAgICAgICAgICAgICAgICAg ICAgICAgICAgICAgICAgICAgICAgICAgICAgICAgIC AgICAgICAgICANCiAgICAgICAgICAgICAgICAgICAgICAgICAgICAgICAgICAgICAgICAgICAgICAgIC AgICAgICAgICAgICAgICAgICAgICAgICAgICAgICAgICAgICAgICAgICAgICAgICAgICANCiAgICAgIC AgICAgICAgICAgICAgICAgICAgICAgICAgICAgICAg ICAgICAgICAgICAgICAgICAgICAgICAgICAgICAgICAgICAgICAgICAgICAgICAgICAgICAgICAgICAg ICANCiAgICAgICAgICAgICAgICAgICAgICAgICAgICAgICAgICAgICAgICAgICAgICAgICAgICAgICAg ICAgICAgICAgICAgICAgICAgICAgICAgICAgICAgIC AgICAgICAgICAgICANCiAgICAgICAgICAgICAgICAgICAgICAgICAgICAgICAgICAgICAgICAgICAgIC AgICAgICAgICAgICAgICAgICAgICAgICAgICAgICAgICAgICAgICAgICAgICAgICAgICAgICANCiAgIC AgICAgICAgICAgICAgICAgICAgICAgICAgICAgICAg ICAgICAgICAgICAgICAgICAgICAgICAgICAgICAgICAgICAgICAgICAgICAgICAgICAgICAgICAgICAg ICAgICANCiAgICAgICAgICAgICAgICAgICAgICAgICAgICAgICAgICAgICAgICAgICAgICAgICAgICAg ICAgICAgICAgICAgICAgICAgICAgICAgICAgICAgIC AgICAgICAgICAgICAgICANCiAgICAgICAgICAgICAgICAgICAgICAgICAgICAgICAgICAgICAgICAgIC AgICAgICAgICAgICAgICAgICAgICAgICAgICAgICAgICAgICAgICAgICAgICAgICAgICAgICAgICANCj w/nNGtY4ltkGZtrwG4G7qpHp8DWv1WJR7cc5VjGLCt FBxbzqMmAfpZBlZyYFWeJbnDGwm6SMjuJR8CtKXmG9RfS8PdZEltMS6VHCUjYZMxpKOyGWQpFGNaTxC5 OGSfGNrwNE0CfSOlVKarTIBvPQBwUhBjJQFbXIQwDGMaBDTlDSLYWGDnZNJmMwLtUPThMWGtBZdnVCFL OZO2LGGgPqCcROHbUNMlCaWmUKYKCRT6YXLeOvRzFw JjRXMvZcymZVXHKPQjAKMfXxEjDvNoSPGzMA6NUTCzD743xtKaWWEYGm3+DQplbmRvYmoNCjUzIDAgb2 PkZWp1IA0ADBImUzpew8CkOVBtSIPZBPpcKL7KUYI5JXL3QZOkXr1DUFJuZ372ebFaJG7BRa7HBkLpHM 5ozw4QBALjLWAcRdpZVgv2TLlnAR9LePOxTTdKJMUt VGLuBY6rUvhnYY5wPDnwRJ1rN99yCYhpEp7GEKC3DNkyREixLrBhADEhBZypGVPLAGrIYyWvJ6Cmz0Va PoA6AWSlFbFyCOvzIWCfFpV4EC85aAekCH5FIRIqOELuRJ85IQAqRBHyLn1SYl9IAzNePM9mfj4VAEWj URVeTqvLHup1PWraKI0UlQXyO6ArjBUqu3uYPlBbT4 KFVBUbQECsYh4KBQUuDpKpAKLnITynGO6bXVGgMJNSyTrkfhT0TF4TSU5nvvNrMH4OPzFzWw0cJj2UDu JoD9EsS8GkLQTlIRRABAhgYJ4VTKdeJG4qEF0Vv5WFbQUphK3ihf3LQMEsKDLpLhiimp2WAbpuC3C5zK ciRCXnDNCxYFEDSVseBW3OXCEwFAP7SDJ9RxNjBGEH UwGlK00kAT7GS5Utq56lKqZ7USLwMdEtGBykZV59xHylgfRwaGMmwBwoGM3UNy7+DQplbmRvYmoNCnhy CNMROfViSTIMGzFsIBXzQNDiYMQbOyZ7FcDfFh8VSWKeJWXhQBKjZzJhFZKuBIMoXIkeQQPtJBS9NeX4 ZLCxQCBsZJ9DRrSeMTAzSEX9KgNlDDLcFOSzxs9ZIZ XuZCEiJPI0AnOxWYBsRNSyXMnbAZBpEDPnIpnuIYYbGIFcGA2FKnZuVBItGKA2AASwTWBzAJUiuw4EBT NsFFFnYmFqMeFfMPPbJPAdVDufEZUyMTSuADWiTLXdMRSxTL5EJyKcZWYlXYE3YPBiSBMnKYYqeu8JBO MkQADyCSx7PpSxIGMrVCMzOAqnIYErIBE7Slx3MDDl FINhCC7ZIkQyQBJrWZwuUMOqJCBpPLUskz9WKSSbQFAyNSAnBcBoONMrMZGgDBoeLUOfLHK6YKO9UILd JQWlBB3BXcQzTXVcHIA2YMPsRLPnPIMwms6JNRNlKEMtAOF4GdUqDJKvIBViBExmVPPuUUAaECF4LZUi VGFeRT3ZEiSbGZMpEUZ7CWGwDTKkUUVewy9ALSOkLI FhYOSoGMAaUHArNVPkWZhmHCAzMXX0NpUyXLGiWEJcDZ1REjFpZAXlKXR7IZDvEKQqHNPivb7MDDWaQE ByKIq3ObAaICGrYYClOKloUXNdZCE4MyVgAFUzXSZyZX2AQaNsCPGyABf8BSicDLLgUYJqak6ZDVLyCK MvHCXvUQGuLJRvTJDoYJmySKVaDYK3NDYnCFXqXOEr GG4IZhYoJZOsDzRsEWyxASSpOHVxfs3FJDRrFEIdIMZ5LqTiZWYcDLVkPVkxKXZkJPSdZRT1VZSlYDCx LE4FQwWzJAVtQwYdBlEzYLUrPTJhwe3ANYDaSQOpXYRcEHQmRSRfLLEoREdgRCIbVYC7EuM9CSHhPBJe NM2BKkLcDLAnEfL0LgYnTXJrITJmkx2PNODvKHQrDm XyIqHxWNPoBSHfNWjxRUGhJQX6FWb6XQNiHPVwUW9HZdEgEOLnBse8VUadMQOwWYHush1JOLLnHKAaYi p9CmReTHFxBXTqPCocFRIyDPY4GQU9DTQkTJUkQA9DWvHoJUEqMhemXfOpDCNhLCZpvc5TKRGjCQSpCS CcWbYuOCFhXAYhQOagYNZhAAAwZoJ1ZIGyGJCrRH1W BpNiSAJdVDY7KTFjKUGeTARshq5RUXFbDLD8XjD5DVHcEMUbPGBuJXnlTMKrJAWpXOOySZGmUXBlTK8B PfCgPXAoQJG9VqHtTIQcULQeck1UPEVvXMV3NgJsOUOwWJXhVRDjXZejUYGfAIBfXyY8BIEsRIVlFA2N ZkKwOHHhDQN1EZAoBYNzCFZhvq3AZZNwLIE8LTz4EN RgCQQdUWFiEAynNNOoJJR1ZRM7IXHyWVZgHO0QGuAyKYOpUDEbGMWxABVnTQUcdd4HKSYqCVT5CTXvUD XrJHZbGMGoWYtiRXJlACA6QAkjHYXgOQRyGX9LZdRaYGQiXTkzHGMlZKHsVRLgfr5BRBTgLYD5AkV1GU LaAEBfDJXzBEv4bjIpoAZaGRr6IB1SK9HerhNxEWZF Pa2Xf956KNA3WCWgTc3AB6uwWs6wVFKoJAKBJy7EGSd4DMO9WnHiIEN8LNHwJOPjDMu6CAKbCodwOdTd NTkyZjg+OEhmRER5UfVoSGC2IUP5RWH4CGXlEhG2X5FgAlZ2ZXCkQK5zKUZQEn8+DQpzdGFydHhyZWYN FsK3FhS2ODjgABNCWc8C ID Date Data Source [id number] 04/26/2021 01:20:39 PM EDT [facility] Name Value Range Interpretation Code Description Data Arabella rce(s) Supporting Document(s) Care Plan [facility] YNXSHv8yCbDTVfIe25/RXCdzKAVht1TbZWyeQGa1FOgvOHBxO8XsMGP1fH6vRNM0QBwEZbOrVhIjDVQ5 lbm [file] JXJ6ZBbmIGXASc9H ID Date Data Source [id number] 04/26/2021 12:43:10 PM EDT [facility] Name Value Range Interpretation Code Description Data Arabella rce(s) Supporting Document(s) Nursing Note [facility] FMFBJq1iYiALBmAk22/RSJleTHVgt1EvXUspBZo9HCazUZQbP6JpSDB2oD1aIIB9FGvYJjMoLgEfHGB1 lbm [file] C9NTQcUGG+UO6nNUx+Eo3Uz4VkzyV4soBbNJmhNCHlSE2RRGDRQ7FCTg== ID Date Data Source [id number] 04/26/2021 12:06:00 PM EDT [facility] Name Value Range Interpretation Code Description Data Arabella rce(s) Supporting Document(s) Glucose, Fingerstick 107 mg/dl 70-110 Normal (applies to non-num madiha results) [facility] The above 1 analytes were performed by [facility] [address] [facility], ,[place] [address] ID Date Data Source [id number] 04/26/2021 04:59:00 AM EDT [facility] Name Value Range Interpretation Code Description Data Arabella rce(s) Supporting Document(s) Glucose, Fingerstick 84 mg/dl 70-110 Normal (applies to non-num madiha results) [facility] The above 1 analytes were performed by [facility] [address] [facility], ,[place] [address] ID Date Data Source [id number] 04/26/2021 05:20:00 AM EDT [facility] Name Value Range Interpretation Code Description Data Arabella rce(s) Supporting Document(s) AST 15 IU/L 15-37 Normal (applies to non-numeric resul ts) [facility] Sulfasalazine and sulfapyridine have the potential to falsely depressAspartate Aminotransferase results. Baseline values before medication administration are recommended. ALT 19 IU/L 13-56 Normal (applies to non-numeric resul ts) [facility] Sulfasalazine and sulfapyridine have the potential to falsely depressAlanine Aminotransferase results. Baseline values before medication administration are recommended. Alkaline Phosphatase 53 mIU/ml 50-136 Normal (applies to non-num madiha results) [facility] Total Bilirubin 0.70 mg/dl 0.20-1.00 Normal (applies to non-numeric results) [facility] Blood Urea Nitrogen 11 mg/dl 7-18 Normal (applies to non-nume ny results) [facility] Creatinine 0.76 mg/dl 0.51-0.95 Normal (applies to non-numeric resul ts) [facility] N-Acetylcysteine (NAC) and Metamizole em ve the potential to falselydepress Creatinine results. Baseline values before medication adminstration are recommended. Patients undergoing treatment with phenindione will have falselydepressed results. Patients on phenindione therapy should be tested with an alternativeCREA method.Toxic levels of acetaminophen may lead to falsely depressed results forpatient samples. Glomerular Filtration Rate 85.00 mL/min/1.73m2 [facility] GFR Reference Ranges:Normal Function or Mild Renal [...] of Health and the National KidneyFoundation. The Cropsey method used in calculating this result is traceable to IDMS standards. Glucose 81 mg/dl 70-110 Normal (applies to non-numeric resul ts) [facility] Sulfasalazine has the potential to false ly depress Glucose results. Sulfapyridine has the potential to falsely elevate Glucose results. Baseline values before medication administration are recommended. Calcium 7.8 mg/dl 8.5-10.1 Below low normal [facility] Total Protein 6.4 g/dl 6.4-8.2 Normal (applies to non-numeric re sults) [facility] Albumin 2.9 g/dl 3.4-5.0 Below low normal [facility] Sodium 139 mEq/L 136-145 Normal (applies to non-numeric resul ts) [facility] Potassium 4.0 mEq/L 3.5-5.1 Normal (applies to non-numeric resul ts) [facility] Chloride 113.0 mEq/L 98.0-107.0 Above high normal [facility] Anion Gap 9.3 [facility] Carbon Dioxide 20.7 mMol/L 21.0-32.0 Below low normal [facility] The above 16 analytes were performed by [facility] [address] [facility], ,[place] [address] ID Date Data Source [id number] 04/26/2021 05:20:00 AM EDT [facility] Name Value Range Interpretation Code Description Data Arabella rce(s) Supporting Document(s) Magnesium 2.1 mg/dl 1.6-2.6 Normal (applies to non-numeric resul ts) [facility] The above 1 analytes were performed by [facility] [address] [facility], ,[place] [address] ID Date Data Source [id number] 04/26/2021 04:54:00 AM EDT [facility] Name Value Range Interpretation Code Description Data Arabella rce(s) Supporting Document(s) WBC 7.39 x1000/ul 4.80-10.00 Normal (applies to non-numeric re sults) [facility] RBC 3.51 x1Mil/ul 4.20-5.40 Below low normal [facility] Hemoglobin 9.3 g/dl 12.0-16.0 Below low normal [facility] Hematocrit 30.1 % 37.0-47.0 Below low normal [facility] MCV 85.8 fL 81.0-99.0 Normal (applies to non-numeric resul ts) [facility] MCH 26.5 pg 27.0-31.0 Below low normal [facility] MCHC 30.9 g/dl 32.2-37.0 Below low normal [facility] RDW 15.4 % 11.5-14.5 Above high normal [facility] Platelet Count 256 x1000/ul 130-400 Normal (applies to non-numeric results) [facility] MPV 10.5 fL 9.4-12.4 Normal (applies to non-numeric resul ts) [facility] Neutrophils 48.7 % 40.0-74.0 Normal (applies to non-numeric resu lts) [facility] Lymphocytes 41.1 % 19.0-48.0 Normal (applies to non-numeric resu lts) [facility] Monocytes 7.3 % 3.4-9.0 Normal (applies to non-numeric resul ts) [facility] Eosinophils 1.6 % 0.0-7.0 Normal (applies to non-numeric resu lts) [facility] Basophils 0.9 % 0.0-2.0 Normal (applies to non-numeric resul ts) [facility] Immature Granulocytes 0.4 % 0.0-0.5 Normal (applies to non-nu meric results) [facility] Nucleated RBCs 0.00 % 0.00-0.20 Normal (applies to non-numeric r esults) [facility] Abs. Neutrophils 3.59 x1000/ul 1.92-8.31 Normal (applies to non-numeric results) [facility] Abs. Lymphocyte 3.04 x1000/ul 1.20-3.70 Normal (applies to non-n umeric results) [facility] Abs. Monocytes 0.54 x1000/ul 0.14-0.97 Normal (applies to non-nu meric results) [facility] Abs. Eosinophils 0.12 x1000/ul 0.00-0.76 Normal (applie s to non-numeric results) [facility] Abs. Basophils 0.07 x1000/ul 0.00-0.22 Normal (applies to non-n umeric results) [facility] Abs. Immature Gran. 0.03 x1000/ul 0.00-0.02 Above high normal [facility] Abs. Nucleated RBCs 0.00 x1000/ul 0.00-0.02 Normal (appl ies to non-numeric results) [facility] The above 24 analytes were performed by [facility] [address], ,[place] [address] ID Date Data Source [id number] 04/26/2021 02:31:41 AM EDT [facility] Name Value Range Interpretation Code Description Data Arabella rce(s) Supporting Document(s) Care Plan [facility] BPBZOy7lRiFSAsXk97/XNZycJXXii8XwYItxZMy5UCjlFCWsF4RcSVI0mF2yCFW0UYsBQkHkMzYgYPV7 lbm [file] [id number]== ID Date Data Source [id number] 04/25/2021 11:21:00 PM EDT [facility] Name Value Range Interpretation Code Description Data Arabella rce(s) Supporting Document(s) Glucose, Fingerstick 84 mg/dl 70-110 Normal (applies to non-num madiha results) [facility] The above 1 analytes were performed by [facility] [address], ,[place] [address] ID Date Data Source [id number] 04/25/2021 11:09:15 PM EDT [facility] Name Value Range Interpretation Code Description Data Arabella rce(s) Supporting Document(s) Nursing Note [facility] GOVJDz4hOlHTHmVm38/JFPqwTVRxd2OuPZvwWNh4QPdvQPIbN5ZkAWX5gK8cAUT4BBvHBuCyTzWiZEW8 lbm EwYrlUGiUqROEeFghQJsEpORnyPkhodQCcWQ1PqHD7UTLzL59oTCKyCOFgC5RyBWQfQzd+By2YKAZmlU PaSX5SJqtG5AekfnsCMD1l0T+SoqHq2E4ncAmbSADoDGKLEQQvz31qgDCY0Jt2O0NiyF4jsKOQfEdoLQ 9fFIWyFYGZSQ6vjbNQHaX/+3taCvUNBY8cFptj5SQD 853AyMkspmVsUrOFWAYmXJ8pvavipwZdBrAdTR/IVBzb8pNqEDpApGFxiKhDtS8kCPh3LgtYwjHgSFUL w3I6MlGQFcnvXdzTwui27lQZSMbeEt/bDXTsviNwfJUAhQqKMfDP0QI61cLlj5IEm4QBMPJshiVimoAI ZIM2EqdzS4ggzXkZ9bV7md07Zqo0TNB8x9SWCRyLRT KP7kN0l6AS5e3psZgS4cHP+gsmIxYnukSZOn2zTxdVDAzOX2gfOxJKxMnOpIJgBioLLrzChcCQjMzdNI NgdMjuO8+Maddy/+tiFfTh/Nz6BnYVOu2omycrBtJJNPjzol0Z8qMiNjbiGGK+gd7Kl3aAZuIY7Pey4QCj [file] C6FLC5zGNaKe6QGuYsWTDSWaZbRU2NGAp= ID Date Data Source [id number] 04/25/2021 07:08:57 PM EDT [facility] Name Value Range Interpretation Code Description Data Arabella rce(s) Supporting Document(s) H&P [facility] SEOUAc9yCgVRStTe11/SEEwvIKHqr1SsYVqvEFe7QRzzOUJbU9AmKDB4vN4lOPL9TCaTCwTwInMnRCA3 lbm [file] MjEgMCBSDQogICAgICAvRjIgMjQgMCBSDQogICAgIC GnWsYuDfibCZBXPYnlVKQqEKFlQsGoTpHtIVZWJHnuQOVgPCBjYsTtBpZtJSBHTi7MTaXxXRNvOB7ljx GolMG8VLL+Sd5YRCZuQS0GlVNLG7QkkQJeWOkhR5QDHV8JCIQ8QR4JbQYjKU3YxFQPB9ObuJOxJh3sZL Xlt9JkDe4rY3MWILZQWPVuXIkpGSpvXWRoLQm6N0M4 LZNqU2CQD583iGPpkBf8Vp9zQ9LCDIvVWnKyKMfgYMyxCQAfUQq6H4L1WHCiG2LCR5BqUvVjgjVvD7J+ JkDvNHYJIB2FGGMAOYs2Z5Z3oZOsS6Q8gNnLoYU2JF1YNR2GcIFzfFGoh80+TcFNJhGkJPIxN7IYEJXC YgOuYTtdWYkqHSJoOEw2Z3K4MJDsQ5QXN2vuO9p6FK 4+UnXJLlKbXHFsIm8ILkDdZx7DGmSvWX1tmm9VBgYlTZSxWrwPMbf3Z0bnftt9vNJiPyI2R3L6RqN2mT NtCL8LG7W2dRCxWFX7VRLumOA+Ss8Rm0HhNNYvDMl9I1dkUZVvZWLdFwMpvG56N++5mqijvJV4F0c1ME RMyJTnbRnKweAcI9aJDDB4g6F4WPx/Zw6QXSV2pCe5 iNJmFMOuIQz4bU4tcTc3FfJpHF71DJWtSKppvI8qOky7S7Xrd9VqVk2cGp1fnETgOz4JPgSoSYF7eoAy AsKSEwN9vHnhvinkATS7Z4z5dPH0Ds65f3cmndNxi4MgRmN8NVlbUHBrAqNnheZoBRN1syAdzU3glsDc Xc0WLKBcMRwjwjYyApPUNa8IIcJbWZ66KwphyJ0ccY E+DQogICAgICAgICAgICAgICAgICAgICAgICAgICAgICAgICAgICAgICAgICAgICAgICAgICAgICAgIC AgICAgICAgICAgICAgICAgICAgICAgICAgICAgICAgICAgICAgICAgICAgDQogICAgICAgICAgICAgIC AgICAgICAgICAgICAgICAgICAgICAgICAgICAgICAg ICAgICAgICAgICAgICAgICAgICAgICAgICAgICAgICAgICAgICAgICAgICAgICAgICAgICAgDQogICAg ICAgICAgICAgICAgICAgICAgICAgICAgICAgICAgICAgICAgICAgICAgICAgICAgICAgICAgICAgICAg ICAgICAgICAgICAgICAgICAgICAgICAgICAgICAgIC AgICAgDQogICAgICAgICAgICAgICAgICAgICAgICAgICAgICAgICAgICAgICAgICAgICAgICAgICAgIC AgICAgICAgICAgICAgICAgICAgICAgICAgICAgICAgICAgICAgICAgICAgICAgDQogICAgICAgICAgIC AgICAgICAgICAgICAgICAgICAgICAgICAgICAgICAg ICAgICAgICAgICAgICAgICAgICAgICAgICAgICAgICAgICAgICAgICAgICAgICAgICAgICAgICAgDQog ICAgICAgICAgICAgICAgICAgICAgICAgICAgICAgICAgICAgICAgICAgICAgICAgICAgICAgICAgICAg ICAgICAgICAgICAgICAgICAgICAgICAgICAgICAgIC AgICAgICAgDQogICAgICAgICAgICAgICAgICAgICAgICAgICAgICAgICAgICAgICAgICAgICAgICAgIC AgICAgICAgICAgICAgICAgICAgICAgICAgICAgICAgICAgICAgICAgICAgICAgICAgDQogICAgICAgIC AgICAgICAgICAgICAgICAgICAgICAgICAgICAgICAg ICAgICAgICAgICAgICAgICAgICAgICAgICAgICAgICAgICAgICAgICAgICAgICAgICAgICAgICAgICAg DQogICAgICAgICAgICAgICAgICAgICAgICAgICAgICAgICAgICAgICAgICAgICAgICAgICAgICAgICAg ICAgICAgICAgICAgICAgICAgICAgICAgICAgICAgIC AgICAgICAgICAgDQogICAgICAgICAgICAgICAgICAgICAgICAgICAgICAgICAgICAgICAgICAgICAgIC MgGCUoELCdYWSyMIQsHCVnBABvZJUzNTFeCWTmGDIyZSTvWZFkWRUnTOXeTROtGWUnVPLoMYl2U8erZZ OsCWViYR4cAXn2Yf1+GFeXYuZpIUI9tvSyuI4QLR3s e7RtAPldCMQdm3LiWIf2JT4IKPSvMUugSC0LRIjosr2CFFLqNTXpsOWZu3msCkOpEYV0KOAbRekpQL0E WTQzS0twdpDnBBGbCNKAUZpbPRTLGXllKBLZYPVqVASkEaSkAgJtZRTtDCSiCTCCKC6EHfAgI4KhzL13 IDYNCj4+TWeyhbRuRmoMPqK2XUKdk9HtKEa4TL3CKW JuIpyje0DtVipoQKEZFUyiDT9OAQX7EKV5DSMhAz7JSXVtJ380owBfGK2FPj3BUbOcGF4xwg1HRhhrAX EpNslQWmm3AVwgUO9JzARnELmSLtEuGkzeUHPfnMH0NKQ9OEV9XTFAKIUxcKO1LdU6PiDfLpLpZNH5FK UpSN2jKIdjPR0KTNL4YNaqQOLnDJIiT9fYWqUsDEzw CWKqkEhqLG5DZtQsB2AuvzPvmICpAlBuIZNGIl5+KAvpubTxRmkUHkY3WUNbo6NjXPd8FG4RIBPqNBip EP9DLMHzvC0eUVwpQI2GTzAtZGPlTKGTJcAwT89tlJIoZHv1F2KlFmUcFPDmOxelYKNgLMtgSyYvMOJw WyBdDQogID4+ID4+NYgwIM1GGOamooHiXFUmGm1RVS LvAOYjFQ5mJMUzUWDvB4D3uRwiSCQHVyLfY1krhygaLN4rDAMfC582zWpnptNhMMY8QWFvPw8YDTPjTR W6TDCvdHTxRqTkNDWILKzsIC9SsSSqLGI1fB8rJNvzNUTiOVQpP0gTKnFeeZhfGX27pSovqnEpoPDkEL o+Sj6MRH0du3CcHXa5kgObRIajKYG0GGdbDCMkWOMz CGQnYUY8FLZ4MDLUFoKyJVJiRVOxQOfcMAIhDWHall2VZDLfXAXyHpT0CAAvKTDaZKKfINpnATWoVPK6 LMQvTOHaJKYiDK8NWrLdGUFgUCXuVUmbPCZzUXUuhh6YTOLbIYAmPcG9PcQjHLKbQKTbVYtvSBHbZYNv FuLhBWRqUFXgPE8UAdHkDDLiFOGkHCjtQWYqSTObet 2OSJNjUUXlDqG7GvKdTQQtXDCeIXftFYMiAKI0DFG5HZMlXQQvGW6TOnLiLUUrZMwoKeIqIBMbJWMihe 0DECTuSNMvVMM0EOHiOZCuVFBkXUuhORPaMXFeGMW8RDCkLUFbFE3QGeIjSAEtMECfXgByMUCvYIBhko 4GGONdFUHlNZA7YPVxVWAxEULxOQztXGXzLSB1YoG2 XJPwAQRpSK3NEuZfUMOfZUC1KrXhNPZeBEZmcf8DRKCyCODaNNg8XMIxEZAgCTPgSPebGIRzTDJ5QJpp BPXeBQCkVQ7MDwBiSVKuQTQnMDKwATWdZHVaby7JCYTxNFGsBsU0ORIbBBTrDLTwVRnfNZFoMXR9RST3 EXLqSPFuSL7SZaHdDDUmHGv1SkSsGYYyODMliy8XBI RfFOPdQWR1LLAaYREoBQXhURpvLYLrRAW2Avp2TTCkMFNzSP1AThWtZYXiNXs0DiUqWXAsTGZxxc6SJX AmJFMbPOvrNoTfCXAkZPAzBQzlXVThIBGcGYCbOQMyOUZdGY7GTyIwJPDfTbMkJhHlJITdYFWhvn9EUV AeKIMqAMM2LMJsWWAnRAQvPOihLZUgUMSgYOb8ZDCe LXDwBI7LEvBdXBFzXzZ0OmNaVJHgLROmot1NVMRrLWDuCpMzOyRtYZKhHFDwGUdjLRXzOEOwVUZ0FOLx EXDnQE2XNgGdNYIqYeFsJkOiCKUxDEWdnn0GZUTyMOYzEuSvQQJjHBVgWDFsBJnwADFbUBK4QUoeVYCn GXMbBK3JKiGxOMObWlYdEFCpJUUbFFJfdv3AWGQeIX BhCFZ1QXWcVHXePMBuAFt3nlEujPIjASh2RQ7HR7KbisYoHtyINr0Us754QVA1FYTcKy1RA5dzSo3yUM JqJIYVPh0RILr6BFRwJKLtF6UaSjS0JQiaCVFsRWxdEvNxFZHzTFIoGVA+STi8DTHuJGP1RvTlRQdqW0 L7SNGaVLGcNRQzCqUxYIJnHT4rPQVHSu3+TGrxmUVyzSmxPAJJPiI1EEQtDYpnFGSQJt5N ID Date Data Source [id number] 04/25/2021 06:53:16 PM EDT [facility] Name Value Range Interpretation Code Description Data Arabella rce(s) Supporting Document(s) Care Plan [facility] VOZOBi0mXtBCDgOd14/DZHdbYMRcn1MrPHpxSVs6QRylDTZaX4XbWDH7eJ3tHOR3NWzXWnGtSoAkTXE4 lbm [file] lDNqsEciQHCBKhR7OEx0FScwYDLPUn3H ID Date Data Source [id number] 04/25/2021 05:55:38 PM EDT [facility] Name Value Range Interpretation Code Description Data Arabella rce(s) Supporting Document(s) Consults [facility] NWQYIs4zRsPUAfOi86/UHBplMJTho3SiJXhlILt3XBlaNFXeU0XjDDD3jV4kZOB3BUhGFxSaRgJePBS4 lbm [file] CARLOS A+eJeKaqXeYjU8kKlSYx3JuoXILs6xpbVqLvp6ykR [file] u1Kle0ExEzSpGsHt8tKTMAYc6+MJsguNVujUaiLZNFHjMzGCAwQYflCZZYYa8Y ID Date Data Source [id number] 04/25/2021 05:13:00 PM EDT [facility] Name Value Range Interpretation Code Description Data Arabella rce(s) Supporting Document(s) Urine Color Yellow Light-Yellow,Yellow Normal (applies to no n-numeric results) [facility] Urine Appearance CLEAR CLEAR Normal (applies to non-numeric results) [facility] Urine Specific [place] 1.034 1.015-1.025 Above high normal [facility] Urine pH 6.5 5.0-7.0 Normal (applies to non-numeric resul ts) [facility] Urine Protein TR NEG Abnormal (applies to non-numeric results) [facility] Urine Glucose NEG NEG Normal (applies to non-numeric re sults) [facility] Urine Ketone NEG NEG Normal (applies to non-numeric res ults) [facility] Urine Bilirubin NEG NEG Normal (applies to non-numeric results) [facility] Urine Blood NEG NEG Normal (applies to non-numeric resu lts) [facility] Urine Urobilinogen NORM <0.2,1.0,<2.0,0.2 Abnormal (a pplies to non-numeric results) [facility] Urine Leukocyte Esterase NEG NEG Normal (applies to non -numeric results) [facility] Urine Nitrite NEG NEG Normal (applies to non-numeric re sults) [facility] The above 12 analytes were performed by [facility] [address], ,[place] [address] ID Date Data Source [id number] 04/25/2021 05:04:00 PM EDT [facility] Name Value Range Interpretation Code Description Data Arabella rce(s) Supporting Document(s) T3 65.42 ng/dl 60.00-181.00 Normal (applies to non-numeric re sults) [facility] The above 1 analytes were performed by [facility] [address], ,[place] [address] ID Date Data Source [id number] 04/25/2021 04:45:00 PM EDT [facility] Name Value Range Interpretation Code Description Data Arabella rce(s) Supporting Document(s) PT, No Coag Tx/Coag Tx Unk 11.7 Seconds 10.2-12.9 Judith l (applies to non-numeric results) [facility] Attention: Effeciive 01/03/2020 The nor mal range [...] 0.9-1.1 Nor mal (applies to non-numeric results) [facility] Suggested therapeutic INR ranges for ora l anticoagulant therapy: Indication:INRPrevention and treatment of DVT and PE2.0 - 3.0Prevention of systemic embolism with atrial fib., acute UT and 2.0 -3.0 tissue prosthetic heart valves.Prevention of systemic embolism in patients with mechanical heart2.5 -3.5 valves.NOTE: The INR is only valid for patients on stable oral anticoagulanttherapy. The above 2 analytes were performed by [facility] [address] [facility] ,[place] [address] ID Date Data Source [id number] 04/25/2021 04:45:00 PM EDT [facility] Name Value Range Interpretation Code Description Data Arabella rce(s) Supporting Document(s) PTT, No Coag Tx/Coag Tx Unk 30.1 Seconds 25.1-36.5 Norm al (applies to non- numeric results) [facility] Attention: Effective 01/03/2020Please no te the change in reference range for PTT (No Coag Tx/Coag TxUnk) ResultsPrevious Reference Range: 24.9-30.6 secondsNew Reference Range: 25.1-36.5 secondsDiscrepant results may occur due to anticoagulant effects such asheparin, direct thrombin inhibitors; argatroban (Acova), bivalirudin(Angiomax) or dabigatran (Pradaxa) or direct factor Xa inhibitors;rivaroxaban (Xarelto), apixaban (Eliquis) and edoxaban (Savaysa).The above 1 analytes were performed by [facility] [address] [facility], ,[place] [address] ID Date Data Source [id number] 04/25/2021 04:33:00 PM EDT [facility] Name Value Range Interpretation Code Description Data Arabella rce(s) Supporting Document(s) WBC 6.78 x1000/ul 4.80-10.00 Normal (applies to non-numeric re sults) [facility] RBC 3.60 x1Mil/ul 4.20-5.40 Below low normal [facility] Hemoglobin 9.3 g/dl 12.0-16.0 Below low normal [facility] Hematocrit 30.3 % 37.0-47.0 Below low normal [facility] MCV 84.2 fL 81.0-99.0 Normal (applies to non-numeric resul ts) [facility] MCH 25.8 pg 27.0-31.0 Below low normal [facility] MCHC 30.7 g/dl 32.2-37.0 Below low normal [facility] RDW 15.3 % 11.5-14.5 Above high normal [facility] Platelet Count 266 x1000/ul 130-400 Normal (applies to non-numeric results) [facility] MPV 10.1 fL 9.4-12.4 Normal (applies to non-numeric resul ts) [facility] Neutrophils 43.7 % 40.0-74.0 Normal (applies to non-numeric resu lts) [facility] Lymphocytes 44.7 % 19.0-48.0 Normal (applies to non-numeric resu lts) [facility] Monocytes 9.1 % 3.4-9.0 Above high normal [facility] Eosinophils 1.3 % 0.0-7.0 Normal (applies to non-numeric resu lts) [facility] Basophils 0.9 % 0.0-2.0 Normal (applies to non-numeric resul ts) [facility] Immature Granulocytes 0.3 % 0.0-0.5 Normal (applies to non-nu meric results) [facility] Nucleated RBCs 0.00 % 0.00-0.20 Normal (applies to non-numeric r esults) [facility] Abs. Neutrophils 2.96 x1000/ul 1.92-8.31 Normal (applies to non-numeric results) [facility] Abs. Lymphocyte 3.03 x1000/ul 1.20-3.70 Normal (applies to non-n umeric results) [facility] Abs. Monocytes 0.62 x1000/ul 0.14-0.97 Normal (applies to non-nu meric results) [facility] Abs. Eosinophils 0.09 x1000/ul 0.00-0.76 Normal (applie s to non-numeric results) [facility] Abs. Basophils 0.06 x1000/ul 0.00-0.22 Normal (applies to non-n umeric results) [facility] Abs. Immature Gran. 0.02 x1000/ul 0.00-0.02 Normal (appl ies to non-numeric results) [facility] Abs. Nucleated RBCs 0.00 x1000/ul 0.00-0.02 Normal (appl ies to non-numeric results) [facility] The above 24 analytes were performed by [facility] [address], ,[place] [address] ID Date Data Source [id number] 04/25/2021 05:24:00 PM EDT [facility] Name Value Range Interpretation Code Description Data Arabella rce(s) Supporting Document(s) Lipase 162 IU/L 73-393 Normal (applies to non-numeric resul ts) [facility] The above 1 analytes were performed by [facility] [address] [facility], ,[place] [address] ID Date Data Source [id number] 04/25/2021 05:24:00 PM EDT [facility] Name Value Range Interpretation Code Description Data Arabella rce(s) Supporting Document(s) Magnesium 2.3 mg/dl 1.6-2.6 Normal (applies to non-numeric resul ts) [facility] The above 1 analytes were performed by [facility] [address] [facility], ,[place] [address] ID Date Data Source [id number] 04/25/2021 05:24:00 PM EDT [facility] Name Value Range Interpretation Code Description Data Arabella rce(s) Supporting Document(s) AST 11 IU/L 15-37 Below low normal [facility] Sulfasalazine and sulfapyridine have the potential to falsely depressAspartate Aminotransferase results. Baseline values before medication administration are recommended. ALT 17 IU/L 13-56 Normal (applies to non-numeric resul ts) [facility] Sulfasalazine and sulfapyridine have the potential to falsely depressAlanine Aminotransferase results. Baseline values before medication administration are recommended. Alkaline Phosphatase 56 mIU/ml 50-136 Normal (applies to non-num madiha results) [facility] Total Bilirubin 0.80 mg/dl 0.20-1.00 Normal (applies to non-numeric results) [facility] Blood Urea Nitrogen 12 mg/dl 7-18 Normal (applies to non-nume ny results) [facility] Creatinine 0.69 mg/dl 0.51-0.95 Normal (applies to non-numeric resul ts) [facility] N-Acetylcysteine (NAC) and Metamizole em ve the potential to falselydepress Creatinine results. Baseline values before medication adminstration are recommended. Patients undergoing treatment with phenindione will have falselydepressed results. Patients on phenindione therapy should be tested with an alternativeCREA method.Toxic levels of acetaminophen may lead to falsely depressed results forpatient samples. Glomerular Filtration Rate >90.00 mL/min/1.73m2 [facility] GFR Reference Ranges:Normal Function or Mild Renal [...] of Health and the [employer]. The Cropsey method used in calculating this result is traceable to IDVT standards. Glucose 81 mg/dl 70-110 Normal (applies to non-numeric resul ts) [facility] Sulfasalazine has the potential to false ly depress Glucose results. Sulfapyridine has the potential to falsely elevate Glucose results. Baseline values before medication administration are recommended. Calcium 7.8 mg/dl 8.5-10.1 Below low normal [facility] Total Protein 6.4 g/dl 6.4-8.2 Normal (applies to non-numeric re sults) [facility] Albumin 3.0 g/dl 3.4-5.0 Below low normal [facility] Sodium 140 mEq/L 136-145 Normal (applies to non-numeric resul ts) [facility] Potassium 4.0 mEq/L 3.5-5.1 Normal (applies to non-numeric resul ts) [facility] Chloride 113.0 mEq/L 98.0-107.0 Above high normal [facility] Anion Gap 10.2 [facility] Carbon Dioxide 20.8 mMol/L 21.0-32.0 Below low normal [facility] The above 16 analytes were performed by [facility] [address], ,[place] [id number] ID Date Data Source [id number] 04/25/2021 05:24:00 PM EDT [facility] Name Value Range Interpretation Code Description Data Arabella rce(s) Supporting Document(s) TSH 28.10 uIU/ml 0.36-3.74 Above high normal [facility] Concentrations of Biotin above 100 ng/mL can potentially result ininterference.The above 1 analytes were performed by [facility] [address], ,[place] [address] ID Date Data Source [id number] 04/25/2021 05:24:00 PM EDT [facility] Name Value Range Interpretation Code Description Data Arabella rce(s) Supporting Document(s) T4, Free 0.63 ng/dl 0.59-1.61 Normal (applies to non-numeric resul ts) [facility] The above 1 analytes were performed by [facility] [place][note 2] [address], ,[place] [address] ID Date Data Source [id number] 04/25/2021 03:04:52 PM EDT [facility] Name Value Range Interpretation Code Description Data Arabella rce(s) Supporting Document(s) Progress Notes [facility] [id number]/HURltSDPsb7BkHBmbMVm2FEstLQYtA3IlABG3eK8xUPQ7QJrGWzSmQoNjKIQ1 lbm [file] [id number] ID Date Data Source [id number] 04/25/2021 07:30:00 AM EDT [facility] CT SCAN OF THE ABDOMEN AND [...] rce(s) Supporting Document(s) ID Date Data Source [id number] 04/25/2021 04:43:00 AM EDT [facility] Name Value Range Interpretation Code Description Data Arabella rce(s) Supporting Document(s) COVID-19 NEGATIVE [facility] This lab was ordered by [facility] and reported by [facility]. ID Date Data Source [id number] 04/25/2021 05:04:00 AM EDT [facility] [id number] Name Value Range Interpretation Code Description Data Arabella rce(s) Supporting Document(s) COVID-19 NEGATIVE NEGATIVE [facility] Negative results should be treated as [...] are for the indentification of SARS-CoV-2 RNA. CosFQZY-KaW-6 RNA is generally detectable in respiratorysamples during the actue phase of infection. ID Date Data Source [id number] 04/25/2021 01:27:00 AM EDT [facility] TSYSORDER [id number] Name Value Range Interpretation Code Description Data Arabella rce(s) Supporting Document(s) TSH 44.303 uIU/mL 0.358-3.74 H [facility] ID Date Data Source [id number] 04/25/2021 01:24:00 AM EDT [facility] TSYSORDER [id number] Name Value Range Interpretation Code Description Data Arabella rce(s) Supporting Document(s) LACTIC ACID 0.8 mmol/L 0.4-2.0 [facility] ID Date Data Source [id number] 04/25/2021 01:24:00 AM EDT [facility] TSYSORDER [id number] R [id number] Name Value Range Interpretation Code Description Data Arabella rce(s) Supporting Document(s) C REACTIVE PROTEIN < 0.5 mg/L 0.0-3.0 [facility] ID Date Data Source [id number] 04/25/2021 01:24:00 AM EDT [facility] [id number] R [id number] Name Value Range Interpretation Code Description Data Arabella rce(s) Supporting Document(s) MAGNESIUM 2.3 mg/dL 1.8-2.4 [facility] ID Date Data Source [id number] 04/25/2021 01:24:00 AM EDT [facility] [id number] R [id number] Name Value Range Interpretation Code Description Data Arabella rce(s) Supporting Document(s) LIPASE 308 U/L 73-393 [facility] ID Date Data Source [id number] 04/25/2021 01:24:00 AM EDT [facility] [id number] R [id number] Name Value Range Interpretation Code Description Data Arabella rce(s) Supporting Document(s) GLUCOSE 93 mg/dL 74-106 [facility] BLOOD UREA NITROGEN 19 mg/dL 7-18 H [facility] CREATININE 0.80 mg/dL 0.6-1.0 [facility] SODIUM 137 mmol/L 136-145 [facility] POTASSIUM 5.2 mmol/L 3.5-5.1 H [facility] CHLORIDE 103 mmol/L 98-107 [facility] CO2 23 mmol/L 21-32 [facility] CALCIUM 9.2 mg/dL 8.5-10.1 [facility] ANION GAP 11.0 mmol/L 5-12 [facility] GLOMERULAR FILTRATION RATE 80 mL/min [facility] GFR IS CALCULATED IN mL/min/1.73m2 JUDITH L FUNCTION: >90MILDLY DECREASED: 60-89MILDY TO MODERATELY DECREASED: 45-59 MODERATELY TO SEVERELY DECREASED: 30-44SEVERELY DECREASED: 15-29RENAL FAILURE: <15 AST 28 U/L 15-37 [facility] ALT 24 U/L 12-78 [facility] ALKALINE PHOSPHATASE 70 U/L 46-116 [facility] pital TOTAL BILIRUBIN 0.5 mg/dL 0.2-1.0 [facility] TOTAL PROTEIN 7.9 g/dl 6.4-8.2 [facility] ALBUMIN 3.7 gm/dL 3.4-5.0 [facility] ID Date Data Source [id number] 04/25/2021 12:58:00 AM EDT [facility] [id number] Name Value Range Interpretation Code Description Data [facility] rc(s) Supporting Document(s) WHITE BLOOD COUNT 9.7 K/mm3 4.0-10.0 [facility] RED BLOOD COUNT 4.28 M/mm3 4.00-5.50 [facility] HEMOGLOBIN 11.1 gm/dL 12.0-16.0 L [facility] HEMATOCRIT 34.7 % 36.0-48.8 L [facility] MEAN CELL VOLUME 81.1 fl 80-96 [facility] MEAN CORPUSCULAR HEMOGLOBIN 25.9 pg 27.0-31.[address] [facility] MEAN CORPUSCULAR HGB CONC 32.0 g/dl 32.0-36.0 [facility] RED CELL DISTRIBUTION WIDTH 15.1 % 10.0-14.[address] [facility] PLATELET COUNT 169 K/mm3 172-450 L [facility] MEAN PLATELET VOLUME 11.9 fl 9.0-13.0 [facility] pital GRAN % 49.6 % 50-80.0 L [facility] IG% 0.1 % 0.0-0.2 [facility] LYMPH % 39.5 % 25.0-50.0 [facility] MONO % 8.5 % 2.0-10.0 [facility] EOS % 1.4 % 0-5.0 [facility] BASO % 0.9 % 0.0-2.0 [facility] GRAN # 4.8 K/mm3 2.0-8.00 [facility] IG# 0.0 K/mm3 0.0-0.2 [facility] LYMPH # 3.8 K/mm3 1.0-5.0 [facility] MONO # 0.8 K/mm3 0.10-1.20 [facility] EOS # 0.1 K/mm3 0.0-0.5 [facility] BASO # 0.1 K/mm3 0.0-0.2 [facility] ID Date Data Source [id number] 04/16/2021 06:48:00 PM EDT [facility] Patient: SIENNA FOSTER Observation Re port - Physicians/Mid Levels [facility].VisitID: [id number] [place] [address] [phone], FRegistration Date/Time: 04/12/2021 20:14 Weight:74.8 kg (S). [...] rce(s) Supporting Document(s) ID Date Data Source [id number] 04/13/2021 06:12:00 PM EDT [facility] [...] Name Value Range Interpretation Code Description Data [facility] rce(s) Supporting Document(s) ID Date Data Source [id number] 04/12/2021 10:15:00 PM EDT [facility] TSYSORDER [id number] Name Value Range Interpretation Code Description Data [facility] rce(s) Supporting Document(s) LIPASE 368 U/L 73-393 [facility] ID Date Data Source [id number] 04/12/2021 10:15:00 PM EDT [facility] TSYS[facility] [id number] Name Value Range Interpretation Code Description Data [facility] rce(s) Supporting Document(s) GLUCOSE 87 mg/dL 74-106 [facility] BLOOD UREA NITROGEN 19 mg/dL 7-18 H [facility] CREATININE 0.82 mg/dL 0.6-1.0 [facility] SODIUM 139 mmol/L 136-145 [facility] POTASSIUM 4.3 mmol/L 3.5-5.1 [facility] CHLORIDE 103 mmol/L 98-107 [facility] CO2 24 mmol/L 21-32 [facility] CALCIUM 9.7 mg/dL 8.5-10.1 [facility] ANION GAP 12.0 mmol/L 5-12 [facility] GLOMERULAR FILTRATION RATE 78 mL/min [facility] GFR IS CALCULATED IN mL/min/1.73m2 JUDITH L FUNCTION: >90MILDLY DECREASED: 60-89MILDY TO MODERATELY DECREASED: 45-59 MODERATELY TO SEVERELY DECREASED: 30-44SEVERELY DECREASED: 15-29RENAL FAILURE: <15 AST 10 U/L 15-37 L [facility] ALT 26 U/L 12-78 [facility] ALKALINE PHOSPHATASE 77 U/L 46-116 [facility] TOTAL BILIRUBIN 0.6 mg/dL 0.2-1.0 [facility] TOTAL PROTEIN 8.5 g/dl 6.4-8.2 H [facility] ALBUMIN 4.0 gm/dL 3.4-5.0 [facility] ID Date Data Source [id number] 04/12/2021 10:13:00 PM EDT [facility] [id number] Name Value Range Interpretation Code Description Data Arabella rce(s) Supporting Document(s) HCG,SERUM NEGATIVE NEGATIVE [facility] False negative results may occur when th e levels of hCG arebelow the sensitivity level of the test. If isstill suspected, a first morning urine specimen should becollected 48hrs later.This test has a sensitivity of 10mIU/mL in serum mmc57oAQ/mL in urine. ID Date Data Source [id number] 04/12/2021 09:56:00 PM EDT [facility] [id number] Name Value Range Interpretation Code Description Data Arabella rce(s) Supporting Document(s) WHITE BLOOD COUNT 10.7 K/mm3 4.0-10.0 H [facility] RED BLOOD COUNT 4.20 M/mm3 4.00-5.50 [facility] l HEMOGLOBIN 11.1 gm/dL 12.0-16.0 L [facility] HEMATOCRIT 33.5 % 36.0-48.8 L [facility] MEAN CELL VOLUME 79.8 fl 80-96 L [facility] l MEAN CORPUSCULAR HEMOGLOBIN 26.4 pg 27.0-31.[address] [facility] MEAN CORPUSCULAR HGB CONC 33.1 g/dl 32.0-36.0 [facility] RED CELL DISTRIBUTION WIDTH 15.7 % 10.0-14.[address] [facility] PLATELET COUNT 358 K/mm3 172-450 [facility] MEAN PLATELET VOLUME 10.7 fl 9.0-13.0 [facility] pital GRAN % 62.7 % 50-80.0 [facility] IG% 0.2 % 0.0-0.2 [facility] LYMPH % 27.7 % 25.0-50.0 [facility] MONO % 8.4 % 2.0-10.0 [facility] EOS % 0.5 % 0-5.0 [facility] BASO % 0.5 % 0.0-2.0 [facility] GRAN # 6.7 K/mm3 2.0-8.00 [facility] IG# 0.0 K/mm3 0.0-0.2 [facility] LYMPH # 3.0 K/mm3 1.0-5.0 [facility] MONO # 0.9 K/mm3 0.10-1.20 [facility] EOS # 0.1 K/mm3 0.0-0.5 [facility] BASO # 0.1 K/mm3 0.0-0.2 [facility] ID Date Data Source [id number] 04/12/2021 09:16:00 PM EDT [facility] spital TSYSORDER [id number] Name Value Range Interpretation Code Description Data Arabella rce(s) Supporting Document(s) URINE RBC 1-3 /hpf 0-3 [facility] URINE WBC 0-2 /hpf 0-5 H [facility] URINE EPITHELIAL CELLS 1+ /hpf 0 [facility] ospital URINE BACTERIA 3+ NONE SEEN H [facility] ID Date Data Source [id number] 04/12/2021 09:15:00 PM EDT [facility] TSYSORDER [id number] Name Value Range Interpretation Code Description Data Arabella rce(s) Supporting Document(s) URINE COLOR. YELLOW [facility] URINE APPEARANCE CLEAR [facility] l URINE GLUCOSE (UA) NEGATIVE mg/dL NEGATIVE [facility] URINE BILIRUBIN NEGATIVE NEGATIVE [facility] URINE KETONE NEGATIVE mg/dL NEGATIVE [facility] SPECIFIC GRAVITY,URINE 1.020 1.005-1.030 [facility] URINE BLOOD TRACE NEGATIVE H [facility] PH,URINE 5.5 5.0-9.0 [facility] URINE PROTEIN NEGATIVE mg/dL NEGATIVE [facility] URINE UROBILINOGEN NORMAL(0.2-1) mg/dL 0-1 R [facility] URINE NITRATE NEGATIVE NEGATIVE [facility] URINE LEUKOCYTE ESTERASE NEGATIVE NEGATIVE [facility] ID Date Data Source [id number] 04/02/2021 12:00:00 AM EDT [facility] Name Value Range Interpretation Code Description Data Arabella rce(s) Supporting Document(s) SARS-CoV-2 NEGATIVE [facility] This lab was ordered by [facility]-COVID19 and reported by [facility]. ID Date Data Source [id number] 04/02/2021 12:00:00 AM EDT [place] ([facility]) Name Value Range Interpretation Code Description Data Arabella rce(s) Supporting Document(s) SARS-CoV-2 (COVID-19) RNA [Presence] in Respiratory specimen by MELINDA with probe detection negative negative Sars-cov-2 [place] ([facility]) ID Date Data Source [id number] 04/02/2021 12:00:00 AM EDT [place] ([facility]) Name Value Range Interpretation Code Description Data Arabella rce(s) Supporting Document(s) ID Date Data Source [id number] 03/31/2021 07:42:12 PM EDT [facility] Name Value Range Interpretation Code Description Data Arabella rce(s) Supporting Document(s) Discharge Summary [facility] NAJFKs9nRxFOUiBi60/TKTbwPTYkx8WjSKwtOVr7FFsxQOWiF3UqBDH8iO6sSDQ1ENpTWrJsSsMjIKNy [facility] [file] AJ8xXVh+Zi3Un9IxhjP6pbBgOGv0LFZ2AX4ZADWOG5QMGa== ID Date Data Source [id number] 03/27/2021 08:58:00 PM EDT [facility] Name Value Range Interpretation Code Description Data Arabella rce(s) Supporting Document(s) Nursing Note [facility] XYURUk2zIbDIXkWi00/IEGfaPQZbx7GsJQkxSNr4GRyxPUSlI4WeURH0wZ6aIVE4PLvFDxOgNkIgUMN3 lbm [file] KixjIZyrZHLUQh3R ID Date Data Source [id number] 03/27/2021 08:57:40 PM EDT [facility] Name Value Range Interpretation Code Description Data Arabella rce(s) Supporting Document(s) Care Plan [facility] WUEGDz0gSpUEZsDn07/NSTvfLXSno0DfZVdvRDy0FQxaVCToZ9MxQCP7rI6dGGU3PRzLKdFdCwPzYUX3 lbm [file] RnRE8LHq7KGdJ6WNU7dZNcDp4VYkSzLMRDBtXpGY3BZNr= ID Date Data Source [id number] 03/27/2021 11:56:07 AM EDT [facility] Name Value Range Interpretation Code Description Data Arabella rce(s) Supporting Document(s) Nursing Note [facility] TQCAXu4mLwSQQgHd13/LNOicJSMtg0PiGQuuPGu8ICoxUQIsO0TgFYJ0iL4hUKD3EVrBKtLpKkReXCC1 lbm [file] 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/VbYra/14DxWP5cxaw2gkVKRfNDS0HUaMky1y9jQeest/BvRC0+q7dn38co0wHz2qy5cW/DPMscSF [file] 9GDQo= ID Date Data Source [id number] 03/27/2021 10:35:44 AM EDT [facility] Name Value Range Interpretation Code Description Data Arabella rce(s) Supporting Document(s) Perioperative Nursing Note [facility] KCLIFn1vMxISTtHv33/BTSfoETOfw8YwYBjsPTv5HMbuNGFjQ4YnDSM0jN0iLXS0TUhHKhMqNiZtQPD3 lbm UrGgyZYrYxOHPaKdoFJgKiZGmgQbmedZOcAA6ImWF3WEDkK51dSYUbIVUaR5SjUEg2CS6+DNeoVPO6ib YqvT9WSNEHP8in7zCRtI+wf+DoCmCDSXw9HFDVbhyURMUqsn/MKDZlk1gNqNFRBtgZM3jc1NGOsNisQb af4qMG55wOLohP8n7xkTDMWKZd//AoFIPpEt6+gcrN Cxm91xIsWjvXoQNJVcjGl43DuLOoFFB5sEMY0GvxzTnYVQDpIQ2fdDMXzil8GMBbT5LxGOBUWHJjOsj0 QDjTeSFKEuunlKM+CtSQ674yICxytXqaDc2qXdf6BV5ztKYtLAo7CJwarstD1eu0gcnCwB2tH83zp7Nv RQvIt2+Mvm/vEa4Hv2TIxvVyCc+cY+hQrzYLE6Evmd BE6v7mehx6rFQhOLjWoQH2PfrcxHEqNmGSPEIVH8YG19iq0CZl5c6sCvqIYu+ShZXMx0lvA7bqPR1MkT mDjDs6LBhwaw8vtzTbLJ5zLKP3AL/lmmcIV9GgiASZ0q6cWXUdXe4e8Dtz5Q95q739CIuecTBVnrSqzu NiJs5wGCgtrvP/tcG6BHpSqvKPIBwULPPr9ipi3ODy REYES+lKT8xDQo8z8jD7zqBzK2C0Um3I1aRfgvY4t4L9Q5kby9RnBR/W1gRC2jgsfPDxmTkt44AUHG+Lt3E [file] KOXzYzLgL4DCjuCQVSVo1T ID Date Data Source [id number] 03/27/2021 10:29:41 AM EDT [facility] Name Value Range Interpretation Code Description Data Arabella rce(s) Supporting Document(s) Perioperative Nursing Note [facility] THYREg4mDqVBOrLa89/KXAzjCSSxz3MtNWszLVz8UIqhCSZpY1EtCNC5jS6aVPU2SAqCNjFrTtBnOFG3 lbm [file] PiStLK2ZQYz= ID Date Data Source [id number] 03/27/2021 10:29:01 AM EDT [facility] Name Value Range Interpretation Code Description Data Arabella rce(s) Supporting Document(s) Anesthesia Postprocedure Evaluation [facility] WGDIRj4iMrLHLtTo78/WTEriVJLsy9RfOGroKHo8UDrbMXLjA8ZaGFC9yZ0fLPN4OFmSUdOpYuDeTPR6 lbm [file] Weight Control Lecturer+wIO2qxOo7TCoqQk2Yqa7nDwu7v2qZ/RkQ1uqi7rvY4J3vVt9HSm6eWP7K61aHI/HWjeb6RvvCW+NE p7bRuDJga0UQVOXu0rb1FAPjaov/8oiJqFzeVBQ98z vDHRbiqwbmVC21IaMtoeeyGfwSMv6t1Lp54uMZ3uvEMq+/4ldD0Mih1BhQ1KDnD1qWb9oUPADunr3z3t Nhj6tOT2zEPxsbo31HOaA1VbhDi5Ru6rzC39lNZ0mv4it3DuolSuhG9omCFeAeDPTWD/Rga7cMZXjV0Z K4jTs466qNQ1aIQU9MiinEFkR1fRltcaIcIf6pYJOI 6bI9sFheHcKhAizNS33Y8cIYjZa/8lK2yRhD2wFxq4asYAuLGla+QWjGPWw6/TXDgrt1bdPcD+5Mx96G B79hTKChGnI52y7fDoynxfReG0BaFUF5CkQbOcwLCXewPcdfdUYgrfJxwdqKIW0vd39Z6zh24nQ2X5Pt SRC6Izl1tUA+c08TZy8vWnRoH1WjmlmIkhamYIaZ8w dTFWxxjDypSgkL4kAkR4sqvT5D00J10SQ5dn7e1jQN7fi5kc6GERAfH6N2EU5vVoFDDNuk1g59IeW4WQ 0rYa3nwcO0tZom+0cTs808MjHsCT/SHwxFM0+VkaPqxDa8xenZv7gTDPMn0J2cTZfjYS59poWdDvPKy1 6udqmpDJPeChcJ5LHR03Vv/vlad/nAkIHQeLP3ezhiB [file] Rg0K ID Date Data Source [id number] 03/27/2021 10:28:51 AM EDT [facility] Name Value Range Interpretation Code Description Data Arabella rce(s) Supporting Document(s) Procedures [facility] UJTCIo9rSqVOViMu38/NHKuaZEZrh8UgSNyzTOm8KRqkWNCyF9XlZCV1jN8sKHH9MKfFTuSoLqSyBCO3 lbm [file] ICAgICAgICAgICAgICAgICAgICAgICAgICAgICAgICAgICAgICAgICAgICAgICAgICAgICAgICAgICAg OIEwGDQxTGHnVGJtPFYzNUVoURKiNFGuDKWvLCZmOIJhSHZkAK1UFIQvZLStHXPkNVCqVCLeJRUiLCOc ICAgICAgICAgICAgICAgICAgICAgICAgICAgICAgIC MgLHDrHPEgGBCjUNFuJOQsBFBqWLEiMLGtAAGnSENsCFDrMINyDFMwLYDjXNThEB0HAFQoAFCbZTIyMN AgICAgICAgICAgICAgICAgICAgICAgICAgICAgICAgICAgICAgICAgICAgICAgICAgICAgICAgICAgIC LnWYBmLASeMSOoPQGuIPLuISCgYIWlKONyKZPvAK7Z ICAgICAgICAgICAgICAgICAgICAgICAgICAgICAgICAgICAgICAgICAgICAgICAgICAgICAgICAgICAg IUYxRRScQAEjFIBvMFCzPJJsOSGmIIUoMEObQDJtXLKnAJJsARQvOG2CNNLvELDnAEOuECVwLPAtZVRm ICAgICAgICAgICAgICAgICAgICAgICAgICAgICAgIC HnGHCeBHMpDGAfNLNvCOXrPEFqBPOzGKUqTPPkNJZpDXZfCIMsJZLeDBLjKOXhKEYjLJ6SGPJtJEXgEX AgICAgICAgICAgICAgICAgICAgICAgICAgICAgICAgICAgICAgICAgICAgICAgICAgICAgICAgICAgIC AgICAgICAgICAgICAgICAgICAgICAgICAgICAgICAg RH0DPIXoKUUnUQFaGMMyKZZhEHIiOEVcPSSaYYTsCCCzHHEpBBUpJXAwSDTtHIQgIHEcZTGxTSDpNSZf PATtGHBaEPAcHZPqJUUvSPYnPOGpWLYcGESzYEUzOJYaVFIgSRLqJGSoAA7THIMzRSBiLUWmXONoVIZp ICAgICAgICAgICAgICAgICAgICAgICAgICAgICAgIC BsDNXbYVAaGRFcABWiJUQkYCEuVAYmBCLoTRWmJZBoTHYaKDDrWCKzJKDrBKHiFEMyUDCrYO8IXTWrKB AgICAgICAgICAgICAgICAgICAgICAgICAgICAgICAgICAgICAgICAgICAgICAgICAgICAgICAgICAgIC AgICAgICAgICAgICAgICAgICAgICAgICAgICAgICAg TOJdHY3VIKWoJFPjJJEdWROnTGLgTRElHRAoIBYeTDGoMCZxIKXzOIVrOOJnMOOyBRVaLLSmLTCeYNOe VNZcQRGkTATcKWTcZAJaWBSoVXNgTFZfWEBiETHnCDOpGPSnWZRxZCDvXWQvLY9RRZ58dTQcl7L6KIFl OU5xaco/Tt7SOGmhmtOjeAZsSR1PMlZgRZ1jba7FRp JhUT0cfk3CFFnYNlMrP1F3lBJjLHVdYUHWKpBmE57lCDkjPu02EMsdOVAzYaVlNOp5Hn9AIbKxY9juQR ClCpP3WOUqNhU1YMDhOeW2HGXfWtUmYLshJS6Yn8KiePAuBFc+Tn1VYT9fu6SbGInpJfLfDO6vmp9YME rFFzXrZ3GmohB0RGP7PAUpRc4LCFUcDLEuuXIlHhKk ZRGSPdDnG0YweO48AJLQTf3+CXhfwkBrPpiEPyW7ERYhc9DfWAp4PJ0MVLRwVEe7lKInJQZiX0VutUZa obKcqMynYTUtYohsBnUiMMfbhQREp3tpvmnxQRInUPOhDC9jNK2iCTKlBUMtTvA6QGHDWR8OKVWvRECx oDTxRVAhLMXYLB8XHFaxXIY3JzccloKzeBKyARplGU 9QYXJlbnQgMjYgMCBSDQo+Me5SOV2ns9YjAKmdFRKoRM0jyu4KRAqYZhYvG2K3mVBsT0Y9DRmvEf4OAP QmICCzUnYtKZNZVKubZI8VLZ2zfdI9JS5PuUZlAXRjXTQtkOJfEOr2Q63hnKQtBVpvYV5YFGW+Mau+Pg 3IBWWoODDiDGIjAfXcXCBFIdJtN4XfM2YZw3NwS0Rg DL81oQhrbjOfTNfuNP7VGK2aERElVVULLC5SbVJbrS6yxqWcPeJtGNGIYbHpV20sgFSwVMEiACT1QPEv Bn8ZRLZtJ6HcsxBkdFcuguThKJQvNYUEOS3CXCvnxgVdeFHxnCnuXP00hZcsVO6MJo0GOhTyNQ4pai0T eDIeFx2FYSHwZH1GDZUxCCWuUIVsRXX0RXYaLfWnYH ukIEUhOECdGFN5RRGbMPMrZZ5VMoHzBICbTyScGPwwCOPxMHRrbl3QCMCkLWLiZnu2EFWcKBFoZITcWO skGPBcRWZjNWF6ZJTcMWBaMY4FUxElRMNvJGTcKEwhQRYeMEMpfo7QODJyHKFjNiA5NyKbJSNlEUGbSU vzFSUgINVfPUM3ADAjNUPsYT1XWoXsIIZbCJFqXdyo RXSnIMYoan6QGYJwIVHmLTE6KZVtOBGkJDVqMDcaAJKxKOO7Txn7SWGxWYIhOP2LAiZwRJFgZFI8MjEz QXMaANHbcj9LMWZkZXBhWPkuMlJbECRlPZBmOAnuZKUeUXT0JZO7VILjWETyWA5DDcVlEQThZAooHENp FGAnMCGikr5LQBOoHQVjZeF6VDFuIHHpZFRuVLdrCJ SkQHC3ODF4IYOwJRFwQL3NMqJkUKBrUTl8AHSgJCZlTETuqq5CNLBlCOOtVRFaFGLdQFAdWXUsTKydGV NqXHDlLzV7NCHhCEYdPY3TUiSaGZHcEkK7TxvhEPVpQVNpab2IKJLuSNVdNHvzKNXyUZIgCVCpCZkbBF HrDTPhWzC0VFViXTHgUL7ILeRdTARxSpQ9WPAqDYKo ODIcnp6CVQNhLOAdPqXtGlRtEFTzNZYzBOymTVTsXMZbEKH2IPRlQRAqVG0HGgBrISZhKxI2UAHdACDs TRQxkk4VLRPiVVLuLmo0BIBvVUJnOFLjIFvvAXSaRBR6DGT8JVYeHKWiOT1NHfArWHvcYLDRNrk0PDtp J6h4LJNfOI5PB2Irl6HfOqbtIWLRQAmgMX4yufIvZC IiSc4UF2zIGmxoSADqTBAtFBzyGXtuFrGyVkR9OeBlMnGmIODsScCrER1lOTZwOlFlJSO8DLSqJNM2Vv OcQPB0IBLiDCR9KERgEZDuMcWvOF8QHr3AQhM3NKQ8aZMaQc9BOkMkKyWFOcBcYU5VUKy= ID Date Data Source [id number] 03/28/2021 09:48:00 AM EDT [facility] [address] [place] [address] [facility] CLIA# [id number] Surgical Pathology ReportPATIENT: SIENNA FOSTER CASE NUMBER:[id number] #: [id number] Date Collected:03/27/2021ccount #: [id number] Date Received:03/27/2021OB: 1980 Age: 40 y.o. Date [...] BISHNU/edwardo Electronically SignedBy:ICD: R89.7x2 Wai Castañeda, MDCPT: [id number] PathologistI ATTEST THAT THE ABOVE DIAGNOSIS IS BASED UPON MY PERSONAL MICROSCOPIC EXAMINATION OF THE SLIDES (AND/OR OTHER MATERIAL), AND THAT I HAVE REVIEWED AND APPROVED THIS REPORT.PERFORMED AT: [facility] [address] [place], [place] [address]THE TECHNICAL COMPONENT WAS PERFORMED AT [facility], [address] [place] [address].CHAIR AND COUCH MAKER: WAI CASTAÑEDA M.D. 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 [file] BmdwS5ssDqWQceANP6YR6IBHRSJ8KNAp== ID Date Data Source [id number] 03/27/2021 01:32:01 AM EDT [facility] Name Value Range Interpretation Code Description Data Arabella rce(s) Supporting Document(s) Nursing Note [facility] MWHKXb0gSnEPMjSb80/DCNnuFJIul3BwZLmpDAa9WBkdDRMgZ9GcVQO6yW6dNHO4HJmDUzHmDwNkKYW6 lbm [file] D1SDXrKHZ7CbG4VNU6WXryZqGvDD2PVb7JDlV5UVI7wNAnVy4DKtsvII9LZDKWH3YDXv== ID Date Data Source [id number] 03/27/2021 01:30:51 AM EDT [facility] Name Value Range Interpretation Code Description Data Arabella rce(s) Supporting Document(s) Care Plan [facility] TRPWLp4yFcGRFcJz71/LKVieVNJbv1HxJQwxJIu3RZwwEEKdG9FpCYC9gL4xATU0LLlPTmHcMxZyELQ7 lbm [file] SpIuveXWWaPBM1BPh3FIapXwstR3SpMTf+DD3kGQa+Yf5Xy6UdseZ0feExDYl4LSn0VQyqORFPXg9C ID Date Data Source [id number] 03/26/2021 06:10:50 PM EDT [facility] Name Value Range Interpretation Code Description Data Arabella rce(s) Supporting Document(s) Nursing Note [facility] ZVIKMy1sFePOWoDh54/OIRvkGZAal3WiFHrcBYb0LAffHELmD7XvBTG4eR8qUPC1UKyMLiHcVtJaPIA7 lbm [file] ltMEXZXr3F ID Date Data Source [id number] 03/26/2021 06:01:18 PM EDT [facility] Name Value Range Interpretation Code Description Data Arabella rce(s) Supporting Document(s) Progress Notes [facility] RCXVYf5eOkFMRcHj89/OMBhiFVWiy8VzUTreRNt9WZeyYDDcF0DlTDI5rP3sREZ0WRnTDtNxIaVpCXG8 lbm [file] D7SZB3OCkuOBMVDn9W ID Date Data Source [id number] 03/31/2021 04:38:00 PM EDT [facility] Name Value Range Interpretation Code Description Data Arabella rce(s) Supporting Document(s) Calprotectin, F <16 mcg/g <=50.0 (Normal) Normal (applies to non-numeric results) [facility] Test Performed by:[facility] [place] [id number] Director: Rashawn Vides M.D. Ph.D.; CLIA# [id number] above 1 analytes were performed by [employer] ([id number]) ID Date Data Source [id number] 03/27/2021 11:30:00 AM EDT [facility] Name Value Range Interpretation Code Description Data Arabella rce(s) Supporting Document(s) Campylobacter Not Detected Not Detected Normal (applies to non-nume ny results) [facility] Norovirus Not Detected Not Detected Normal (applies to non-numeric r esults) [facility] Rotavirus Not Detected Not Detected Normal (applies to non-numeric r esults) [facility] Salmonella Not Detected Not Detected Normal (applies to non-numeric r esults) [facility] Shiga Toxin 1 Not Detected Not Detected Normal (applies to non-nume ny results) [facility] Shiga Toxin 2 Not Detected Not Detected Normal (applies to non-nume ny results) [facility] Shigella Not Detected Not Detected Normal (applies to non-numeric r esults) [facility] Vibrio Not Detected Not Detected Normal (applies to non-numeric r esults) [facility] Y. enterocolitica Not Detected Not Detected Normal (applie s to non-numeric results) [facility] Enteric Pathogen Panel:Testing performed by reverse mechanical manufacturing engineer, PCR and array hybridization.A negative test result does not rule out the presence of diseaseThe above 9 analytes were performed by [facility] [id number],[id number],[place] [address] ID Date Data Source [id number] 03/26/2021 02:23:09 PM EDT [facility] Name Value Range Interpretation Code Description Data Arabella rce(s) Supporting Document(s) Progress Notes [facility] XMYBDw4fUaBQDlVt97/YUGpiVZMxl1ZpDAxiZKt3DFftYZMkA5FoHQQ0oE8oQRA0MPcGPsLnOpDsLQH2 [facility] [file] RdWgPcF3FWowNNS3ZRKiWRDpLlk+OM1yHNy+Gj2Rx1RikaV4bkYyZSbtRzA1Ft6ZSYOAG2CUAz== ID Date Data Source [id number] 03/26/2021 12:38:41 PM EDT [facility] Name Value Range Interpretation Code Description Data Arabella rce(s) Supporting Document(s) Care Plan [facility] QTSKLh8nHsILNdUy84/LGIvoEPIyk8JkXUvjCHu5KDziEKWtX9CfCOO5eB2bDQN4WLmHNsPaItBiBKY4 lbm [file] josé miguel/VnCugzHbVNoTqN+wjQHbIQifJkv3oxYz4EbTiaUnkrEW50KO5T2jJ5LpGReR0WN6BUAyJv1iZ2/5 [file] airbrush artist+aBoauGaNnqJ77H1y2Wq9QR/J41uFAvNQ2RGjD3Hf4Fk527OTjfc7yhpzn/0L/Sv7FBMsr3xbVz/l [file] AgICAgICAgICAgICAgICAgICAgICAgICAgICAgICAgICAgICAgICAgICAgICAgICAgICAgICAgICAgIC AgICAgICAgICAgICAgICAgICAgICAgICAgDQogICAg ICAgICAgICAgICAgICAgICAgICAgICAgICAgICAgICAgICAgICAgICAgICAgICAgICAgICAgICAgICAg ICAgICAgICAgICAgICAgICAgICAgICAgICAgICAgICAgICAgDQogICAgICAgICAgICAgICAgICAgICAg ICAgICAgICAgICAgICAgICAgICAgICAgICAgICAgIC AgICAgICAgICAgICAgICAgICAgICAgICAgICAgICAgICAgICAgICAgICAgICAgDQogICAgICAgICAgIC AgICAgICAgICAgICAgICAgICAgICAgICAgICAgICAgICAgICAgICAgICAgICAgICAgICAgICAgICAgIC AgICAgICAgICAgICAgICAgICAgICAgICAgICAgDQog ICAgICAgICAgICAgICAgICAgICAgICAgICAgICAgICAgICAgICAgICAgICAgICAgICAgICAgICAgICAg ICAgICAgICAgICAgICAgICAgICAgICAgICAgICAgICAgICAgICAgDQogICAgICAgICAgICAgICAgICAg ICAgICAgICAgICAgICAgICAgICAgICAgICAgICAgIC AgICAgICAgICAgICAgICAgICAgICAgICAgICAgICAgICAgICAgICAgICAgICAgICAgDQogICAgICAgIC AgICAgICAgICAgICAgICAgICAgICAgICAgICAgICAgICAgICAgICAgICAgICAgICAgICAgICAgICAgIC AgICAgICAgICAgICAgICAgICAgICAgICAgICAgICAg DQogICAgICAgICAgICAgICAgICAgICAgICAgICAgICAgICAgICAgICAgICAgICAgICAgICAgICAgICAg ICAgICAgICAgICAgICAgICAgICAgICAgICAgICAgICAgICAgICAgICAgDQogICAgICAgICAgICAgICAg ICAgICAgICAgICAgICAgICAgICAgICAgICAgICAgIC AgICAgICAgICAgICAgICAgICAgICAgICAgICAgICAgICAgICAgICAgICAgICAgICAgICAgDQogICAgIC AgICAgICAgICAgICAgICAgICAgICAgICAgICAgICAgICAgICAgICAgICAgICAgICAgICAgICAgICAgIC AgICAgICAgICAgICAgICAgICAgICAgICAgICAgICAg NYMrOJt4C1fkFTHjLWDsFI6aQRh0Tw7+VSmNKbGuQXJ2wbFnoO1BBI4hy1SqWRagPVMll2EzBAm1MZ3O SASdNKumZY2ETXiajj2RGDIgXIVuiYJBa6bnXaAgOHW4YCKgHieoMT1VFZIsG9mhcfRaXHTqRKDRJMoo KZYFNO1JOpRgY9IkiQ90PXUQIv7+DQplbmRvYmoNCj Y0DEJhp3IrVYv7TM0RODFjOevio9GqYwqhZRQOVRfpCX5NPAG3YCM4ODOxPi0QGJQrA246okGqSQ7NRg 7SFmViHC5vwf3NSqtzKUKpKnxVKhe3LFaoZJ8ReYPkBNeFZYNbESOeOI2bQkptI2Ajt1DtgwWeUEUPrg 2tXUGwDUDAOxChlAD6EtM1BeVzMcWkXCM1WuppIB1s EOfdFT0KSGW1VEmoTWNlOZRjN1iMNiNnTIuzLZHtaKeyWQ8NQgAlH8RbzmNzeHDbOjFmHWNVCo1+DQpl vlKtNoiEVcU1MVYpp8FuARe3KQ0NYJSpNKyoSI3MSEWouB2bGLsnRG6WCwFoEHOnRKQWPbTxD10owYFm BVd9D4SrZmBxFNFzNrlwPTUaQRvxDmOfXQMyQkMfQY ogID4+ID4+HAmkMA5KLFunggEnRILdYt9WYIRgDJInCR6xDHKvCAYrO9G8mZigQXGZDbQhI1kcbgzvXJ 2lSIXxN478yVzmciBwCSZ0OVGqKc8LOVKjPNE5OUBwwIJpFiGkGBVWZGfaAL1TiDReYOB8sV0fTVanDM SlHDEsJ4mXUnSmiOsdHC05vIjchoNznWOcWSr+Pg0K FO4lw7GpKTe8zcWjVBijPQZeVGwzVXGiRBYpYALpWOZ9TOU4SDEFBrHcBZJtSAOhOAnfXZCuCQWyij8Y IZGxVZNyWPFyNkNgKQSqINSeCUkjKHKsIPOiWUr7CBXfSEBoKI8SXbLxNKZdJSWgAMwxHLGyMXPckj9U MDAwMDAwMzMyOSAwMDAwMCBuDQowMDAwMDAzNTMzID QcYMLxTJ3YLjMpWQEwBIB0MmbgVAIvWVAmac5VNIYlVWEoPUU8TASqHLZbXRVzMWdxLRZrAJW4RnL8HL VlOEEcGE9NVsKnQXKlFWB1ZEYzTRFoCXNrag7MVDBgHOXbNyLvMoUtJRJoGHBcMAgaOLHcGIL1FDj9IY TgLHUkRJ2XPzFePWIoNJytUURtMQLuROLjco6MZIQj WDDtOKA9RhHkWCOwVDZbMJeyLCJwVAG7TsC4JBReKIXaAI8VRuJsBYIwZQs2LnhlIBJsFRBhve5JPITo WUMjADtpVhKnYXHvUWJrRZipMHTtTRWtQvv3JMFnQCEiZO1RCgCaXQKxQAR5SFAeQXBaSOWhzg2MCGTe ACYyDZF8USYyGSTxSXKgOErmCOLbXJE4ALZ8ZSMqEX XkMF4IBgYxMIRnKjCkLYycDJEfINHzap6LMIHlVAIeJUV4QoQwWTUlYOWbZXpzMYGkZGTdDXFtYTOuJP YsDH8DNtEfTKKrOsYiDGBzIJIiMYMhdd9ICLArLFZbQVlxEVCaQCFjHBJuICqhERNxENZwJAf9WBOiIS EsNB7GKfWdKSZeTmJiHAaxYRAcFXSawm5MQFCpXNOx HlD8ZoFbAMYiEERcBZi8xzYqeZEhMCi3PQ7VD5GwycTcTvRTBt2Nq633CJY8MUTyZd7BR0nkYv0sPXLg NHYBId7QCKb9YaYcVCO6PyE8ZIkcZpP1BcIzPIg6IEXxV2GlHJGyFcl+LMrmK4J2Puz2LFSePCPlGhkw VqZzDbPbFWBrECClAOTfMX7fQMMHHi1+BHjtmYEpoXfmYTEDDvNlAzBzVRblNVZJFs5V ID Date Data Source [id number] 03/26/2021 05:02:00 AM EDT [facility] Name Value Range Interpretation Code Description Data Arabella rce(s) Supporting Document(s) Blood Urea Nitrogen 5 mg/dl 7-18 Below low normal [facility] Creatinine 0.79 mg/dl 0.51-0.95 Normal (applies to non-numeric resul ts) [facility] N-Acetylcysteine (NAC) and Metamizole em ve the potential to falselydepress Creatinine results. Baseline values before medication adminstration are recommended. Patients undergoing treatment with phenindione will have falselydepressed results. Patients on phenindione therapy should be tested with an alternativeCREA method.Toxic levels of acetaminophen may lead to falsely depressed results forpatient samples. Glomerular Filtration Rate 81.00 mL/min/1.73m2 [facility] GFR Reference Ranges:Normal Function or Mild Renal [...] of Health and the National KidneyFoundation. The Cropsey method used in calculating this result is traceable to IDMS standards. Glucose 82 mg/dl 70-110 Normal (applies to non-numeric resul ts) [facility] Sulfasalazine has the potential to false ly depress Glucose results. Sulfapyridine has the potential to falsely elevate Glucose results. Baseline values before medication administration are recommended. Calcium 8.0 mg/dl 8.5-10.1 Below low normal [facility] Sodium 140 mEq/L 136-145 Normal (applies to non-numeric resul ts) [facility] Potassium 3.6 mEq/L 3.5-5.1 Normal (applies to non-numeric resul ts) [facility] Chloride 110.0 mEq/L 98.0-107.0 Above high normal [facility] Anion Gap 6.7 [facility] Carbon Dioxide 26.9 mMol/L 21.0-32.0 Normal (applies to non-numeric results) [facility] The above 10 analytes were performed by [facility] [id number], ,[place] [address] ID Date Data Source [id number] 03/26/2021 05:02:00 AM EDT [facility] Name Value Range Interpretation Code Description Data Arabella rce(s) Supporting Document(s) Magnesium 1.8 mg/dl 1.6-2.6 Normal (applies to non-numeric resul ts) [facility] The above 1 analytes were performed by [facility] [address], ,[place] [address] ID Date Data Source [id number] 03/26/2021 04:45:00 AM EDT [facility] Name Value Range Interpretation Code Description Data Arabella rce(s) Supporting Document(s) WBC 4.62 x1000/ul 4.80-10.00 Below low normal [facility] RBC 3.66 x1Mil/ul 4.20-5.40 Below low normal [facility] Hemoglobin 9.4 g/dl 12.0-16.0 Below low normal [facility] Hematocrit 30.0 % 37.0-47.0 Below low normal [facility] MCV 82.0 fL 81.0-99.0 Normal (applies to non-numeric resul ts) [facility] MCH 25.7 pg 27.0-31.0 Below low normal [facility] MCHC 31.3 g/dl 32.2-37.0 Below low normal [facility] RDW 15.9 % 11.5-14.5 Above high normal [facility] Platelet Count 232 x1000/ul 130-400 Normal (applies to non-numeric results) [facility] MPV 10.8 fL 9.4-12.4 Normal (applies to non-numeric resul ts) [facility] Nucleated RBCs 0.00 % 0.00-0.20 Normal (applies to non-numeric r esults) [facility] Abs. Nucleated RBCs 0.00 x1000/ul 0.00-0.02 Normal (appl ies to non-numeric results) [facility] The above 12 analytes were performed by [facility] [address], ,[place] [address] ID Date Data Source [id number] 03/26/2021 12:22:38 AM EDT [facility] Name Value Range Interpretation Code Description Data Arabella rce(s) Supporting Document(s) Nursing Note [facility] SKUORr6pNsRTCqVq67/IDTplAHGsi5AeWLeuNHd6QGigVZBhT7ZmSON4iP7iCEY6KErOUrOgOrXtOHJ4 lbm [file] RiDdMbXO0LAr2NCzD9BXF4pXGiQo5CMoqjDM3CMYZJT1STKr== ID Date Data Source [id number] 03/26/2021 12:17:58 AM EDT [facility] Name Value Range Interpretation Code Description Data Arabella rce(s) Supporting Document(s) Care Plan [facility] LTMIYb9eVtDAZuMe19/KRLyxFJOgc7SsEBxvVNp7VAxiQWUdA0DtTBJ7mO0tJTT3ZUaCRmWzSfXtORO8 lbm UyKysIHoJhBBByEreGTyIrREvqTeuykIHbSO3VdQH8RSWxS07jQJJvSTJsM7DiLHC8SJz+Xe2YARTdhF EhEZ3DYfnC7YwGq7y4XM05bd2NwoGhrI0BNWM40jI9pm8jOd+xd1xvtBLG85YNZzJHpt0nOSX1m8yZVw i1iF7TSfU+R3P464RXOjh2vNsMEtZek/J//VWnkvUm 7Psp0HLSIHzRMn/KRSPBqkS7i4P/DsU3TkyblXUMRmlbUeliM6owNxiXgr2eGkYYCua4BowOTT1dAq3p wP091INAU9rf9P0v61WnzmSJZktvPzkk//c/10U4e0aYoKHit3qvNmPvdzpldGkkiNXbzeqxnpgeG7ak voz5thadz2fVJ+xflx63Tq/flr4L0V/x1PPDKlNSqf 9qqYQWG8kBfvXFj1n5YTyeGtydHS7tSQLE+4zLDSEpG8xs0ANQCPEvXHoMCk5afFtDOmSlejtJGwPOww ousoZ/Vs2Lu/9eEYd16ntHPoBueA4Vc2Q/J+Jackson+atFmuCC0SOaGMl5qRcDaz8hzanEZmfi+Q+jMTtfFl nag5dAzg87STfzkYhe57PWMMtEIFV9BlYB4/Ztf9Q9 6AzWNHW7zszAAuNhm8zyWRQzSCllcfSKRlHhVRpDz/U4XAZQqp6A2SPY7ZiKX6tkdAyZz6n/imkDp9Sk 3m/V+DWPN+BOgXYopbepif3StuvfYs84fqfiwYR2sekwFy8Yc6epq8EImU/d5ZRQ+uXOr/K+Dj04nM3D 0nac80r02MQ/Cg5unmc6usppKMudgxUoUucmset5LW [file] RoCQXuEHIjHrMmOge5CtN3YDRzSRXaFwTaXA3LGs9XZnM1IGH3kZOaIj7PMIb5Tw1GRGNER7FADa== ID Date Data Source [id number] 03/25/2021 07:13:18 PM EDT [facility] Name Value Range Interpretation Code Description Data Arabella rce(s) Supporting Document(s) Care Plan [facility] BQGICu5xDfWUYiGt66/JQMrsYDFjt5UtYIsmTDq0GVtfHEUtF7EqLLO1yP2oLXT9PJsFTvSiHqXnLLP8 lbm [file] 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/VbYra/41YjLE2vbhx8vjXFEvIGD4TVqLbg2k1nXmpyr/BvRC0+n3pf58pf9tQc0sk6dP/DPMscSF [file] XSANCj4+SBfweUNmhMhcNFNEBySoLOP4JOdkKOXLEy7C ID Date Data Source [id number] 03/25/2021 07:12:23 PM EDT [facility] Name Value Range Interpretation Code Description Data Arabella rce(s) Supporting Document(s) Nursing Note [facility] NKLIBk1cFyFZXbHw26/KKOaoMEOwr5OoUFrsNOf6UQprHXXmB1VxPBL1mS7tQQV4NQnWIgNzKsVhVMC9 lbm OxThvQEfTjVJNaHjcJRvOnBEfaVmmpdKQjSI1UjAL0UOUnR64hXTSpPNQcY2UzMBKpNwU+Cs0PIEJbwJ NwHS3FWzjH0DztqfC9JD8B8b/TT6davuj7hT+EkLiUSkgUSqPzcjgPKdmGQG+kCQV+/dmNvUm+wZo27R ZB+2KR5XvIm/vGuyEKf1+x3wrfUQG/y6+uNPTxlB4+ sJF8mIa0qe1tRgLonZweHMCvX/2rQq/HbKwDv8AM4gy30NjkYYnCsV3pLctHNU34uh6q78s7Yo3Y4CcO oq6gjaQDs+Q1Skp9tc89tGj0ofoaF/qOezOLvD3KfzafYvIfuhzoeA9R2ZZpps9XqXNprMIVZBKSIyTi WqwEh8fM8amlDJqBja8S27uLKOen+otYP7GF+jZEGO fUTCLuuZu0AmIPw3Xvx+2gIXzfPPGFFTeIh7UIh7e7NqV81aMSBNxEcDlenFGNBIeaZHbA4nPqR2fogT TQ5U1Wt3pRbIkZtSrgc25GdrfcUqKI44Yjbne7A2kS1OYWBze27ktIjWSaIzvMRu98Zm/4E0LdaNUa0g S1n8Qs7YDeFzMnl4d8z8+/vuXW+bJ0UTtNgeOIDwPy oEN9yhWey4rSrBrMLub6s/RYxBjagY1tvqMlW4CHwKH/aPD6/vOhiit9Fwcv14QyzcTUIKdMhM25SZrQ JeYwi4sF5Y7c/oCxxV2FGcgEx6CmVB6t59d87yYKdOMEg8f3p04A92eib+gvkd+DrM5UiVuif0NnAQol f2G/TO8i19N972YaNRyll8p7Ep4dXbxGC1kmJq/Clau [file] vcYWXUUp6T ID Date Data Source [id number] 03/25/2021 05:38:02 PM EDT [facility] Name Value Range Interpretation Code Description Data Arabella rce(s) Supporting Document(s) Progress Notes [facility] NXFISw8rWiXMGdDv16/XTZopRCBgv4YmRTcjHVx6HWevPFJsM2HbXEC1fO1tAGJ9CSuFHrEyVgZrNKJ2 lbm [file] CDLqXsSK7PAUm= ID Date Data Source [id number] 03/25/2021 03:02:31 PM EDT [facility] Name Value Range Interpretation Code Description Data Arabella rce(s) Supporting Document(s) Anesthesia Postprocedure Evaluation [facility] HTXCDv4sLtEWIxAm33/ONRaoUTZrw6GmVNgzEDe0ZVjsOLLmJ5ZqCVN9aI5bMGX5BChETsVqVvBaBNB5 lbm [file] MDAyMzQxMCAwMDAwMCBuDQowMDAwMDIzNTgxIDAwMD EhGX7BXxNxVVnfYVQUOqy0LWfqK2r7KWOkPW6TL4Khl9HuFnkaSXRPHSvvDV1dfhPeMKSlTc6VV5lNDu byL2KdLMX5NUdmLSK6ZGAwOPLiGWE0HgU1XmXtDdAwAg7lRKSbM8T4FXc8EFE7Iob7WnZiNjKzHBUzTP l7PiAhH7OhTqRvNZ1KCr9HHgE8CPP4wMJjUr3YJkU3VxPGOoHsCT4GSMc= ID Date Data Source [id number] 03/25/2021 10:57:36 AM EDT [facility] Name Value Range Interpretation Code Description Data Arabella rce(s) Supporting Document(s) Nursing Note [facility] KYUUOy5lPuPOFqHi47/ATKqtBEIyi7WoSImjKOi3WMdeTKRpE6TcIYE3aZ7fLSE7CNvDRdCkXpXbRJG3 lbm [file] LcNyufUKPvXoTjMHS5HVB+PP5iKXh+Yk2Wx9JwpqA7ylBlZLqtKErtIi0QQCGTX0AEMd== ID Date Data Source [id number] 03/25/2021 10:48:41 AM EDT [facility] Name Value Range Interpretation Code Description Data Arabella rce(s) Supporting Document(s) Nursing Note [facility] KBOUHk5xRmKROvIe96/GAFikUSCqp1DgNNudXCb0OFuyQMStJ7XsMBZ6oI1kEMY8MVxEKgIjYoRlACD9 lbm [file] 8MVfP9QBR5cGNmWv5XPmN8JHFIVrMfLK0SUAm= ID Date Data Source [id number] 03/25/2021 10:42:08 AM EDT [facility] Name Value Range Interpretation Code Description Data Arabella rce(s) Supporting Document(s) Procedures [facility] WUSMQf5rQdYITwXu71/ZWAbyPOJcq2SuSNnoGAj3CBrvQHGmT6HjKKK1nD5qPGW5FZgTGwDyZaFxUBB3 lbm [file] NzScN8Y6NsNJUxAqQlNR8PHe4KKrY0RSL0lNPeTm7KZtJ7EoMYWnKgUK2QBVt= ID Date Data Source [id number] 03/25/2021 10:11:38 AM EDT [facility] Name Value Range Interpretation Code Description Data Arabella rce(s) Supporting Document(s) Anesthesia Preprocedure Evaluation [facility] LGUITq2tSgEWPzLy36/XFIybMTRjr6WwBCzxYHx1CFcaPISkV9RpQJA0fE1sLNE5KRjZCxZuWpDtTSE7 lbm [file] QibWfnpQtm6wrUXrYgffjr+Z925onT/c+yI0+pmL83dJhWjPLukO9Kik69t6FrvUNgYNnNgx9xrz/Rocío Asrj1dO/99DpOID2a/YZoQtMN8FF8b3nU1/qPg+f5H 0yXQHqE5mcQlUbdAPkBB8zH8SDvT+yDXIHlLXuHefvskTF7M+fvoOQ461TQayFRuHkFLRnjek6rPoBTm hbW/rogelio+C61/S5alyDjrpM5DCaBpMkEQaafGvA9vzQPuBbBVTfYNiDamroNX1jn1EUnJypi6eGRiJ6oo [file] IyMA2WNr6AMjJ4NBV5wIPfCl7DUgQdYxuRZlTqWY9ZAEt= ID Date Data Source [id number] 03/25/2021 09:23:31 AM EDT [facility] Name Value Range Interpretation Code Description Data Arabella rce(s) Supporting Document(s) Perioperative Nursing Note [facility] ROZJEx0uPzBFXzHx95/PTSusCUAnn2MzMFrtUAy0JCogQEItC2IeSJM5yJ5uLLQ8JSwMKtUlAdMvFGI7 lbm OtUvyMTzGmMCGvAajEJbNoYSiaLuwnsEReQY1IyOP6CAIfZ31zKCAaGUGtW6VbRPjlLX1+RHyrMIU0ok JtfI5UOXSIMXjk37NJpTbaK+nFVj9rl7p5HzLgFxJKeJtgQ3cUMewwvNkU5tNi86I7gafyZQuzdzGcN8 s0s+pVfba0IjY/I1gAARtzHg7As1bGnddHsgjDjOGe oap5KuvcVMJEdT4Nydv02PTfJotDBY/7oHITqTyXZnaVEUVEfrRL9OyT+dKKLXQ9UlLSGW7rZfzixxHV 2UJgL3B9rw45BW+ksQy50KAZ5t/ItzBCxrFBwxmkaV6HPaudXmxDkMSnQJAUkgpwndWFlUyWVqqyfo8h 0oCY8I2fLcafuKBV7FPGLePdYq7hiCkgevJZuFj1q9 WEFrib21E1s5VlV5htvZcr9xJaBPgZcG2BNglR5jtyEOhp/dFUo+kAlByVymcrUMlQdLTcVyiUDJruQS zCy+Jj6icSNR42TnK4RhGFPpZJm58Sf10Ff2elHIkUrTbePuJNjfGby7ZG7tr4+T2RkNDoXZmqky+t6H CcrLZpNHzauEKpdcN7/jttr22GerKVs0e2aJdRvDEI uKtpoNE1gGF6wqpFQu1p+ofpzXxc2zOYz4+GK20vJQpB7lI26xjndKWbeyISCmtURC7kRA4X12A1LD8e OVy5Dd5Bb548XpEdvfwAhloRIU7l7rJO+m1Hrn41r5C+4Q6LGSH89p/hJGlsLON8V3vwVR/Jpfpd/music director [file] 9GDQo= ID Date Data Source [id number] 03/25/2021 07:03:25 AM EDT [facility] Name Value Range Interpretation Code Description Data Arabella rce(s) Supporting Document(s) Nursing Note [facility] EHXTOj9oAdLRPhTn74/ULPhhZOFnn6GuJDvgMRd0WSyjTHPaS2GfNPV0gL3iLYD0PXdPWzMgKuIrBCX9 lbm [file] 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/VbYra/79MjJX0tklu0twJXHhACQ2IUfJmk9n1gSwoel/BvRC0+j9an97ue2mOu6ae0aO/DPMscSF [file] 0K ID Date Data Source [id number] 03/25/2021 05:44:00 AM EDT [facility] Name Value Range Interpretation Code Description Data Arabella rce(s) Supporting Document(s) Blood Urea Nitrogen 6 mg/dl 7-18 Below low normal [facility] Creatinine 0.72 mg/dl 0.51-0.95 Normal (applies to non-numeric resul ts) [facility] N-Acetylcysteine (NAC) and Metamizole em ve the potential to falselydepress Creatinine results. Baseline values before medication adminstration are recommended. Patients undergoing treatment with phenindione will have falselydepressed results. Patients on phenindione therapy should be tested with an alternativeCREA method.Toxic levels of acetaminophen may lead to falsely depressed results forpatient samples. Glomerular Filtration Rate >90.00 mL/min/1.73m2 [facility] GFR Reference Ranges:Normal Function or Mild Renal [...] of Health and the [employer]. The Cropsey method used in calculating this result is traceable to IDMS standards. Glucose 92 mg/dl 70-110 Normal (applies to non-numeric resul ts) [facility] Sulfasalazine has the potential to false ly depress Glucose results. Sulfapyridine has the potential to falsely elevate Glucose results. Baseline values before medication administration are recommended. Calcium 7.8 mg/dl 8.5-10.1 Below low normal [facility] Sodium 140 mEq/L 136-145 Normal (applies to non-numeric resul ts) [facility] Potassium 3.4 mEq/L 3.5-5.1 Below low normal [facility] Chloride 110.0 mEq/L 98.0-107.0 Above high normal [facility] Anion Gap 8.7 [facility] Carbon Dioxide 24.7 mMol/L 21.0-32.0 Normal (applies to non-numeric results) [facility] The above 10 analytes were performed by [facility] [id number], ,[place] [address] ID Date Data Source [id number] 03/25/2021 04:56:00 AM EDT [facility] Name Value Range Interpretation Code Description Data Arabella rce(s) Supporting Document(s) WBC 4.87 x1000/ul 4.80-10.00 Normal (applies to non-numeric re sults) [facility] RBC 3.54 x1Mil/ul 4.20-5.40 Below low normal [facility] Hemoglobin 9.0 g/dl 12.0-16.0 Below low normal [facility] Hematocrit 30.0 % 37.0-47.0 Below low normal [facility] MCV 84.7 fL 81.0-99.0 Normal (applies to non-numeric resul ts) [facility] MCH 25.4 pg 27.0-31.0 Below low normal [facility] MCHC 30.0 g/dl 32.2-37.0 Below low normal [facility] RDW 15.9 % 11.5-14.5 Above high normal [facility] Platelet Count 201 x1000/ul 130-400 Normal (applies to non-numeric results) [facility] MPV 11.1 fL 9.4-12.4 Normal (applies to non-numeric resul ts) [facility] Neutrophils 50.5 % 40.0-74.0 Normal (applies to non-numeric resu lts) [facility] Lymphocytes 35.7 % 19.0-48.0 Normal (applies to non-numeric resu lts) [facility] Monocytes 10.7 % 3.4-9.0 Above high normal [facility] Eosinophils 2.1 % 0.0-7.0 Normal (applies to non-numeric resu lts) [facility] Basophils 0.8 % 0.0-2.0 Normal (applies to non-numeric resul ts) [facility] Immature Granulocytes 0.2 % 0.0-0.5 Normal (applies to non-nu meric results) [facility] Nucleated RBCs 0.00 % 0.00-0.20 Normal (applies to non-numeric r esults) [facility] Abs. Neutrophils 2.46 x1000/ul 1.92-8.31 Normal (applies to non-numeric results) [facility] Abs. Lymphocyte 1.74 x1000/ul 1.20-3.70 Normal (applies to non-n umeric results) [facility] Abs. Monocytes 0.52 x1000/ul 0.14-0.97 Normal (applies to non-nu meric results) [facility] Abs. Eosinophils 0.10 x1000/ul 0.00-0.76 Normal (applie s to non-numeric results) [facility] Abs. Basophils 0.04 x1000/ul 0.00-0.22 Normal (applies to non-n umeric results) [facility] Abs. Immature Gran. 0.01 x1000/ul 0.00-0.02 Normal (appl ies to non-numeric results) [facility] Abs. Nucleated RBCs 0.00 x1000/ul 0.00-0.02 Normal (appl ies to non-numeric results) [facility] The above 24 analytes were performed by [facility] [id number] Christo Hallman, ,[place] [address] ID Date Data Source [id number] 03/25/2021 03:48:12 AM EDT [facility] Name Value Range Interpretation Code Description Data Arabella rce(s) Supporting Document(s) Care Plan [facility] EATYDg1dXqXMYrNm32/BUQryRDOco7CzCTieCGm6GIcfZIZtJ0ZcFHG3aM7bXZX7RHpNUtVoAlZmXGS1 lbm [file] FmMQFsTDS2KZSlPGL2FtDyEiEdVEMkRgR3Fe0hKA ANCj4+WQhgfGXugIdbCXGXNsJ1LnZnESsuENOGHj0R ID Date Data Source [id number] 03/24/2021 06:47:36 PM EDT [facility] Name Value Range Interpretation Code Description Data Arabella rce(s) Supporting Document(s) Progress Notes [facility] ZLKYCa5oAlZCQaUg95/RYRliWQQiy5GrDAxxKNx5RBvjUJBsR6ZjVSP5mQ6kLIZ9PXfTAtMkEoYqEGY1 lbm [file] aK2QmaZjKSGKz9nwh+IOxXfu/IssBE1uq17z/O [file] == ID Date Data Source [id number] 03/24/2021 06:29:29 PM EDT [facility] Name Value Range Interpretation Code Description Data Arabella rce(s) Supporting Document(s) Nursing Note [facility] XRKOCv9aRuEJDpVq64/PJRioMYVmv5AoROlaUWv1SCtbFJZmI5CzFOT8fB0uFZG2YWaQMkUmWoSrOYH3 lbm [file] D8KGY3PYGbSLCmItXmMF5NOp5DNxF6DDW8hNXlGw5BZwZfQLNPIgFtYY3KYFj= ID Date Data Source [id number] 03/24/2021 04:19:00 PM EDT [facility] Patient: SIENNA FOSTER Observation Re [facility] - Physicians/Mid Levels [facility].VisitID: [id number] [place] [address] [phone], [facility] Date/Time: 03/22/2021 13:25 Weight:72.1 kg (S). Height/Length:68 [...] rce(s) Supporting Document(s) ID Date Data Source [id number] 03/24/2021 04:11:33 PM EDT [facility] Name Value Range Interpretation Code Description Data Arabella rce(s) Supporting Document(s) Progress Notes [facility] JNGCGz4vCcNTRlXl25/ZEXvzSGBjl9YxQXaeUIj6OCynYLQlD7PpJRZ8rY2aSHH6NFlOHmPcPoMbRMK5 lbm [file] AgICAgICAgICAgICAgICAgICAgICAgICAgICAgICAgICAgICAgICAgICAgICAgICAgICAgICAgICAgIC SeXYJtWFUbOQEsTQMyJNNrZHQjOGCzFPEhOQVyVFWkRGWiCJ3MDOQiQOVcACPmKKNlDBEeSIYvGEZeOT AgICAgICAgICAgICAgICAgICAgICAgICAgICAgICAg DEVcSALlFLLfCMDaWEObXFEvYLPeBGGpYRIfYEWpWHSbHPNpKCDgJEUoXVGpTI2RIBZwIRMwQNLyPPIe ICAgICAgICAgICAgICAgICAgICAgICAgICAgICAgICAgICAgICAgICAgICAgICAgICAgICAgICAgICAg TSMeVVTtFLXkEDYnBCNtEKErFYYgLWGmWEBeNR1RJQ AgICAgICAgICAgICAgICAgICAgICAgICAgICAgICAgICAgICAgICAgICAgICAgICAgICAgICAgICAgIC YmIXTrHXPdFIZhCHRzVCRcNIQhHLAgLTNhDXJqTATfTFQbIYPdXO0FZBJuHKSnVYNgINEtXSPeWPOyCH AgICAgICAgICAgICAgICAgICAgICAgICAgICAgICAg VNNiWJJiWCJkIVAfLSMlPLAoRGVbGOYoFHTpBFNcMXJwGKKnMZBuJIErJBFpKRYyFZ7QFTGxFRWqKYZl ICAgICAgICAgICAgICAgICAgICAgICAgICAgICAgICAgICAgICAgICAgICAgICAgICAgICAgICAgICAg ICAgICAgICAgICAgICAgICAgICAgICAgICAgICAgIA 0KICAgICAgICAgICAgICAgICAgICAgICAgICAgICAgICAgICAgICAgICAgICAgICAgICAgICAgICAgIC QqLWOuQTXgRGTaWWOoXXCzURWwFLLkLWHzNCQfOFAcIEFeBKBzMDRvRL2RZTSkGVVcTMErZPUqIVAmNG AgICAgICAgICAgICAgICAgICAgICAgICAgICAgICAg KINdCAWhSZPhBKHiFYSxCZDiNAHpAPHfBIVuCNCsEKPtNYVvBTVwYPDfDSSzGCAvGXUwMS9MRBTzHDDg ICAgICAgICAgICAgICAgICAgICAgICAgICAgICAgICAgICAgICAgICAgICAgICAgICAgICAgICAgICAg ICAgICAgICAgICAgICAgICAgICAgICAgICAgICAgIC WeIH7AHNEjTBIcGERmSIGiINCsQDNgCDXmWXGxLTAtEYHiKUUoDHKoFGEmFHJdMMDcYBJmPNDuYZHuOG LyUJAoXEVzIANkQNNzEJPzCTKkCRDxXIIgTZTxEHHjYLDgGZPiRBLcNZWuUL6LNV80eCThh6G4HOTcXI 0ndyc/Zf0FVEucoiQkvTByYZ0RHlBpIG0frt0ASrHs XS2xis0QRPsTJrCzQ2U7qASePMXdWCYRBvFvW89gINgtMs88DUajNEWtPyEgLIg0Ez2QQxIwW2doNNYl HjO7HZVdVyNbVVpmKS0Ia7GerKRpHVx+Ph0EDR2ps6DfHTsgNNEeUP4ckl2CWOzOBaDjM5OuvsI7ILW0 OISsFp2GMRYfONQgxIAkLlQaTBQMFlWgD6ClyC39CD ENCj4+ODiakrYwVvzWBqI6IRZkz8AlCTc6RW9YZFDeNIo6uZEjRNNeK4Qke7LvCh80WOKeTfgsUTYfsB PPGCCshaImgRQ4MsH7JgNeJzWpBJG8ANIsBI5oHJawZM6YQKF5GXxhLVFfXRYiV2tRKhVjMUqkUHYyfP syJD0PPgMzG0XznqUmvYAwQIMrXYGGKv5+DQplbmRv DzpTCkS0XZTfn7AzAFd2ET3WIATgOGcuTO2CIXKimA2oFXuuKB0IGdSsWtExZMWNVoBmA37pjDKgMTt8 U3GqStAtSXDfFxlzHWNzEUphCiJrSEPtWdGzMOttUT9+ID4+YXqpSJ6ZSYibqwDeEIFqDx9QMQFdCEKc ZX0eAAFgYFOgA6C0vTvoJATAPdFlK7bssshiOX6zZV RyL923yWcctwSoPQO2EDQkFy8XDWLzJTZ1WBNhnFPcRvPfFXDQJLqpUP5LnTRpRNS4zY3wPNjhTVAbIU NsM2oTQjLebWwpSA07cIzmkjHznJRdRZz+Qa3UMO2xz2HtDSx4ysJgCJzrKEY0OQusTJEeVVPjRVIuPV C0LBA4ILTZMiRoDUIlZUJqVWfwBHGuXMYszw8TVGHn SYGnIGD0XGJrFRKjKVJlMJmyOVSpHPDiANX3DPQjUUFzHB4AXaUlSZLkPKHlKLezMDTgFBBznt7MSIDv VPXoBRy4PHYrGYFrVOLfMCshUURxDAUjJIepEEXdWKFqLF6FEwSjIJZmTTOfHLUtGPOsQVExzm0XEHQf KEYsOsG8NrOiAJAyCZLdTAudNKIfGHZyBCL4AQCzNZ EsPR4WNlWrCVJlBOWeTGMwVYDqJIZxyu4TCTAqMVMpGJD7GfCpSFEtRFUgXJkcLRZcLKK0Nmd4VKFhQW NlEG1BDxKmVZFzVWleFqHhUMTpMAGpdp1ESUJjXXDjKeK2TMTpYKDaSZOfFTjuIQZwZIR8JzI3HBGoKM NyXE7GFbEvJEEbLVc0WJbwVTVaVTAkjh9KXBIuASLy LCHaYAFpKUOtEKIyTOxcNZNqNLD9BSr8YUPwHRBsJM3EOyGhFBMvVQkvSjcmERYhCRWqkr0ALBPtCJNs CYW5DcGsVBZaAMHhQAvtHYQrMTZyNrx1HHUgZEWzBC6ZOoPkLTFzWyG5IsErSZOjTUQzzm6HNDWsQIYq TBK7KrZrUMDtWLQvQJbfOKGfTJIjWSu8HAYnOFOvWF 1INvBpQXMbYyJ4TJqxEFRiKFZbgf3LBWUtIHFnYlU7CASvVTDvXMLcUUqoUICnJDNgAxW1LAHjLQNvVP 8BLjMlWTxbANRUQta3TOygJ6r1RQNxBN0IO0Sbc3VjKtcpHYXIYHxiRY9iyaYhUENnPr9ZP7iYSvgzKi qyHoBpSSewEBIlByCiCDC2XYH8CVZvSoI8PcmaPK8s CWF6LRL2S1G4AsM4LxUnEbDdHrS2AFG7TTQkZoddDIG5WgUgAW8ZZd3CWqW1PDL9jBNjUp7BWjG5UcFP OkEbKH3PDFe= ID Date Data Source [id number] 03/24/2021 02:38:34 PM EDT [facility] Name Value Range Interpretation Code Description Data Arabella rce(s) Supporting Document(s) Progress Notes [facility] RRZRQx9uTuVRTyYc96/TUIqtUPNkt0MqEIlkWLv7KNqnVUSmJ7QwOSX6nN2iHQY9LBrGGtJjArCkLAD7 lbm [file] ICAgICAgICAgICAgICAgICAgICAgICAgICAgICAgICAgICAgICAgICAgICAgICAgICAgICAgICAgICAg ICAgICAgICAgICAgICAgICANCiAgICAgICAgICAgICAgICAgICAgICAgICAgICAgICAgICAgICAgICAg ICAgICAgICAgICAgICAgICAgICAgICAgICAgICAgIC AgICAgICAgICAgICAgICAgICAgICAgICAgICANCiAgICAgICAgICAgICAgICAgICAgICAgICAgICAgIC AgICAgICAgICAgICAgICAgICAgICAgICAgICAgICAgICAgICAgICAgICAgICAgICAgICAgICAgICAgIC AgICAgICAgICANCiAgICAgICAgICAgICAgICAgICAg ICAgICAgICAgICAgICAgICAgICAgICAgICAgICAgICAgICAgICAgICAgICAgICAgICAgICAgICAgICAg ICAgICAgICAgICAgICAgICAgICANCiAgICAgICAgICAgICAgICAgICAgICAgICAgICAgICAgICAgICAg ICAgICAgICAgICAgICAgICAgICAgICAgICAgICAgIC AgICAgICAgICAgICAgICAgICAgICAgICAgICAgICANCiAgICAgICAgICAgICAgICAgICAgICAgICAgIC AgICAgICAgICAgICAgICAgICAgICAgICAgICAgICAgICAgICAgICAgICAgICAgICAgICAgICAgICAgIC AgICAgICAgICAgICANCiAgICAgICAgICAgICAgICAg ICAgICAgICAgICAgICAgICAgICAgICAgICAgICAgICAgICAgICAgICAgICAgICAgICAgICAgICAgICAg ICAgICAgICAgICAgICAgICAgICAgICANCiAgICAgICAgICAgICAgICAgICAgICAgICAgICAgICAgICAg ICAgICAgICAgICAgICAgICAgICAgICAgICAgICAgIC AgICAgICAgICAgICAgICAgICAgICAgICAgICAgICAgICANCiAgICAgICAgICAgICAgICAgICAgICAgIC AgICAgICAgICAgICAgICAgICAgICAgICAgICAgICAgICAgICAgICAgICAgICAgICAgICAgICAgICAgIC AgICAgICAgICAgICAgICANCiAgICAgICAgICAgICAg ICAgICAgICAgICAgICAgICAgICAgICAgICAgICAgICAgICAgICAgICAgICAgICAgICAgICAgICAgICAg ICAgICAgICAgICAgICAgICAgICAgICAgICANCjw/nJKwS1thiIIqfpK2M9trZr8BBw0ESC9xx4CjIUTq XHpripDgJtnFKiCoCEXpNznNZsz1EAdjVU6YjKLhQ0 RtD3NfXQrlVO7LNLSgVMCbcGBaPRQlEFXvTkV3TJPsSBhyLC2SeZFlJVkyWKXfFDLyJtKtFZFmRDQkWA NpIBQxVZLRYM4UBsReA2ItyP23DXPFSl1+VQndixQfWayVLvV0FENyj1SxRLm6VS6YXKEkBaoye0IvDW XlKSCJJPmaCR2FCTK8SRA2VFLsHj8AZWToV313yzLx KP5VSs1HWyKcZD5lgo7AKKNePIMtJaxCGun9PEqcVB4BwPAhGAiLjr8rhqYwzqUHc7MucsRcoHGOlsyz HE2qC2ZbkPn0TMYZQUZOGU7xCYXbOD6tNq8jVBRdPEWiLcA6NUQSLN4GWGYxMSQeeQAbUGVeQEJFQK0C OThsQTI6GzghreFzjTHlYPwrUZ9TBXHtdbGbGUTsPC BSDQo+By9AEI8ia6YbSJi1ZdOxZX7aqu5WLHkMQqCfY8D5tUTxZ8G4MMffCp1RVDYsQVHgSGEaMJWNAE heYP7TWA9exyX2FD3UxYPtQPHaNNDpbUYzTJg0D74bsRMpJMwvIY6GVVG+Mau+Rk6JXBKyHUQeIBAsIv AlECIVOoKgB0MdA2SCk9HiU4EcJT57kStuqyGyVExr XX4ASI7vUWPfSLPJOX8ZsSIfaI3bunR9FIYcCPMQVkFtN81lsOLuYKOyKLNtRHSiYe7RPQBkW2BblnFr cKcazbVzWWTiBFNNVK6NMJszjwTbbWEcyUzoPD35uBfvRL6VPi0NNyMmAU5oyr7KnOTbWf6JYCP9Lu8G GFLdOAYxWXYbBRD2MMWyTxBbISjaDMMiIGOmBBS0HA AvYXHlMR1IXmTjXZHsPUw0UVPiFHFnVHXdus7ZCQCkGMO5MTT6ANYkXBUqVEMbFYglWNAxWCNxWVM0DE VvCIVnJO4DHgUfAQHkCJF2JVktEQCfRZVwbz2GBCNmTIOfJmHvAhKqSZJhFSWoDEqnRTNrXXV8HfR8OV BxVYJmTU0HEfGrKVCjWHF9InsjZXVeWMCciq1PXBTk ACAyVYBwJCVuYHNePLRdEJmnUREvFXK9MfT4FCGyUDMeNY8NMwRzRQNtBYh8EwIzDEEqDVUqqb4VLQNt DEVnWCllFPZsMHMbNGKxOKpwLYQlCNXwNCw5BAFiALBzOP2JXvQwXECkLZBuBGxfGXLtETVixu9TGQLc BOSyLCA3JiZtREFpFNUqTWjzZKShFRRoAyZ2TSMrOD UhVT1PJpZnNXDnYJY1PlTuSPZxAVStrs6WSBRxDQBwNrFfXePaWWPlQCLiFLkbRONfPOF0OQF1GUPvMQ UhFC0NQrNtWFBlXuXpAHXuLUSbLPWqcp2JHXScWROtBNJ5IBXxXLNzTGFwNPqnIFHiUCY5ObSkHGSiIQ GaMM7MRpQvFXKiGqF7WnejXXSpPHZuep4XPDQlAFOe EbloWFNzQKFxBKVoIVvaRZOnDCX7SELmREWsNJTgXF6YDgIdWXAbLrdfRUrmOJIaMRItdn0RRDVyEDCu RLGsIKUnUFLrNKOiBQxxGACgMDN3BrC9DSHnCGQrTC7UTtSyMCHkCzw6RIdfITXdRIPtjq4ARGYaVIA2 AFfbFMEkWLZcGOWaQKqvJFWbQYBiTXQ7NKRzAXHwVK 8SZjCaVQWmQMZySXFxDPJpQQYxdq4YROFjASN8BbR4AAQoFTUtJTDmBVrlXAIqNJLpBcCvCPOzLYEfSO 0ODuTtRDGcHGQ9SoMhHOOtNQWymc8IRQNjNJC4Zif6EeQfSNGhVDMtKFiyMURnEXM8YTH3HACsTDJhWF 5EFeXtWTAkVEc2XLZyNVLwYAMsnv8MPKDwCKC0OJFu SQUuRUWkWPBeSYjsUOOvSON5CNZtVCBeGFWwGU6TAzOtZBWsQDw2DkYeOGRrPEQmsy1GOXTiQPH7ATno MOMuVYPsAGPlATcfGMFjDPBeVjZqODAuERUtYF5NPpKbSXCfTYO1GJotMCBfNIJujz7ZLGHvSKS8VYpw CJZzLCFgKIPdNSdgESOiUYMuZHlyMJYhQJTxPD7PWr OfLWqyLKZTZfd4PCeeD1v4YTS0Yy9XZ2Tdh1VfNXNiGXIMIVxrYV1nqoEdJFZcWf1GI8gRJctiKsEaBK V4VHAdLGP3ZxMzCDM1DES2P6HxTKLtDrQ7Ra1jAHG8SsC1UgDgVON2UywxQOX6KCEpMwakINU2TSIgMV SlPuAeOV2WUu9LCcH6JQV3rPLwSn3BJVMxHjYPWrRcLT7JDJl= ID Date Data Source [id number] 03/24/2021 02:35:53 PM EDT [facility] Name Value Range Interpretation Code Description Data Arabella rce(s) Supporting Document(s) Consults [facility] DOWGGx0wHiJWQxAq05/TWXpkQYAxs7NuCLzjMHe8LDyyBJEqG2HrSTJ6uQ4cRAI1IWzIUzVuWkXqGIM3 lbm [file] AgICAgICAgICAgICAgICAgICAgICAgICAgICAgICAg ICAgICAgICAgICAgICAgICAgICAgICAgICAgICAgICAgICAgICAgICAgICAgICAgICAgICAgICAgICAg ICAgICAgICANCiAgICAgICAgICAgICAgICAgICAgICAgICAgICAgICAgICAgICAgICAgICAgICAgICAg ICAgICAgICAgICAgICAgICAgICAgICAgICAgICAgIC AgICAgICAgICAgICAgICAgICANCiAgICAgICAgICAgICAgICAgICAgICAgICAgICAgICAgICAgICAgIC AgICAgICAgICAgICAgICAgICAgICAgICAgICAgICAgICAgICAgICAgICAgICAgICAgICAgICAgICAgIC ANCiAgICAgICAgICAgICAgICAgICAgICAgICAgICAg ICAgICAgICAgICAgICAgICAgICAgICAgICAgICAgICAgICAgICAgICAgICAgICAgICAgICAgICAgICAg ICAgICAgICAgICANCiAgICAgICAgICAgICAgICAgICAgICAgICAgICAgICAgICAgICAgICAgICAgICAg ICAgICAgICAgICAgICAgICAgICAgICAgICAgICAgIC AgICAgICAgICAgICAgICAgICAgICANCiAgICAgICAgICAgICAgICAgICAgICAgICAgICAgICAgICAgIC AgICAgICAgICAgICAgICAgICAgICAgICAgICAgICAgICAgICAgICAgICAgICAgICAgICAgICAgICAgIC AgICANCiAgICAgICAgICAgICAgICAgICAgICAgICAg ICAgICAgICAgICAgICAgICAgICAgICAgICAgICAgICAgICAgICAgICAgICAgICAgICAgICAgICAgICAg ICAgICAgICAgICAgICANCiAgICAgICAgICAgICAgICAgICAgICAgICAgICAgICAgICAgICAgICAgICAg ICAgICAgICAgICAgICAgICAgICAgICAgICAgICAgIC AgICAgICAgICAgICAgICAgICAgICAgICANCiAgICAgICAgICAgICAgICAgICAgICAgICAgICAgICAgIC AgICAgICAgICAgICAgICAgICAgICAgICAgICAgICAgICAgICAgICAgICAgICAgICAgICAgICAgICAgIC AgICAgICANCiAgICAgICAgICAgICAgICAgICAgICAg ICAgICAgICAgICAgICAgICAgICAgICAgICAgICAgICAgICAgICAgICAgICAgICAgICAgICAgICAgICAg ICAgICAgICAgICAgICAgICANCjw/aLGkN2otlNIhehZ3B3ywEl7XUi0QZX5qh7YaGDYgBRashbAaLkdG AjWrDNAvVekCXge4WHmvCA3IvQNgN1GmC3UnACpvGP 6JZCFgLXXpbTGxHQXrFRFiUbF7HISkMPbnCM6KdYYeTGmeEJVeWHNhUjKfAJVoCXHnFUSzRTKaUIUTSZ ZfVFKsVeYeUSIzDCRhXShzNLRHGOB4RJAuXqBwFIpkDR5Yn2DbmJP7DHx+Bh1NPP6ge4HiQKq9JbJbPS 8cvr2ZOWcYCyPnJ3MncfP3LMTrVZAxEo0NYWYzKQEh uUY5GpOjFYVNClCnO7FubH24AMMCYj4+KWhbwbMtUcdLLjNeEVSah9HpWHu4LM5MWSHoFHk1dNZtN18c g1GwhGDuAmikY6pvmSettDAVFAboWXKrpxqdXREeJFGnIH1xLw4pARErPKNiMtSrZGNYKA9IBTLrQGQh yKRaEZVhKMAJCN8BIFklVIF2UmcuuuOfpCSqZQdqUM 9QYXJlbnQgNDIgMCBSDQo+Ic4WWX6my1FnJVm0LTLgCL4wyr5LQEoXKlRkX6O6bNFnW5Y7DZfrLw4HLA TeFZDgOOFhOJZHEUieES1RAS8bojT7PS5JrDEgGXMkXXXewTLcBDr0R47qdJQmBYzsOQ5ARXT+Mau+Pg 1TWOMuSDCcEERxKyHvMLKTJnCwM1KbF5THu7BgO3Hz KL72mGffevXgETgfWP0HCT8eHSCuFIQBFF9FjAHvcO4yuoO9SzEeEXWGPiMnM27mmGQhNOUzZWHgNEAc Bk7MTPLeL0RaghBtsAevncAjQODhRFSSJV8WHBncehVfvGKzsFbjNN47yYfdDB7SJz2GBzCkMQ8bir4F nGAjLe3LFEH6ZD7JKJUoDCPaCQNmEHM4YJQhLzSoRE ulZAHnUBUaHWB1YQOcJUHbRO4PQpEjWPArAxlqCPikXYCiHIHalm9HBAMaGTD7UYHtMvLiATScFVPcAP dqNRAhZBNbDSW9EQIhZDBqGJ5HNeCnTDBkZOAdXxXtLTFmTLPgbr7ZCMQzWWEcGpC7RLXeXHUoVDTuOS aeAKTiZHK0KhnqSVNgWRFmCO2QAfNfFJVoHRC9MRGo FRTjCWAbrn4DZZNsOIElWAB3PgZdAKEvSCCsWHqzJBRsQVK8QNo8ZKHuFDQnZY4UUiZuMNAhPEN0MUnr QUOuSZDxpn2ZCELpGQRuRRS7YPJiVJTbUZGhUOywLHPrWYGfLJT4DTQySHOgYX1ZXgEiFGGlNNQ1XJYh XVVhEEPxxg2COIGoTCBvNOR2PKIiSVPgCDWsYEmaRM PqCDD4NOq5VCThFWNiYV4OCpTdSDLhQOogGUQoMNSyLVDhfh3BEQIvCFXjHpI7CCHrTQSyYFCzJZvtHQ FqFWY0ZVY8ATMhOPLnNE6XTbTnWXIuVYsfHsSuKOJiKDHkhi2RPDIbZJSyOWVcYBCdOOOoWYIgQSjrXT RqOGL7BUNmIODvEOKxAE9GGaOuSDXmYNr0PDMgJUIq HPYiwf3SPZKdBXCuZWL6ERNvJCPbGVZjYPabVMIlBRAbTeH2HCZwABVqQU9PRjDiVZLoPsE0KEGoKMEh DQFngm7IHABaTNUfAGprYJUxVTSmNTZkEVinWDLeZRLaCHR7MKZpEOYbVE6VEhKkCBCrYwUnVEDjHVMo JFZrob0LTHTyWSFnSjQ1HOUkNKOkEJRrFDucKIIlOU PqVMB8KMHsEOCrUL8VXgCnBIOoXzK8SSKrEZWiCORxco3YYKJpQTUsYTQqEUAqMJPhOYDdKYzaHJGvIW S3BSS6OAPqVPRpMJ1NHkZxMKPtUmY7EFViOMXiDZOwgg9ELHVwNZDpVANzBPVtOEHaSEQoOUjzGYGuKN L3NnD9OVRkRSPiYV1FAiQdDMEwQwo7KLvxILEsLKWp en1AESKaTVJiYEM8UYThLZFjJOFoTZtdADJdJXN0AuN4UUKiISUqPX7EZkOrDIYvJeq3LOPxPIJgRLSt qe3KJLIgPFJ1DIS9WKQjFTDmTIVgFNvpNRSbPCRrIySyXNBaJXVqYW1EGoJbTQVqTQExILdlNDJlCGJy zj3VbLHocPqwut8APKlKOk7VyKuiSJS8RJvpLj5fxX G7IUAhYEXIOt7ZaoQzIGXwDIELGUgsQIIdLZbnPIAdUCH3VBFwBLDaSGY7ERW9MVUcRkSwHBExAgU3Uz S9D3H4FwEtIXPmXlR5DkD4AeliAsg2JrD8UjFxLnMyUuZ+EW8kKDb+Zj8Om2KxntT6dwDaQPu5IKVnVG 5NUIZOY3KHMa== ID Date Data Source [id number] 03/24/2021 02:16:15 PM EDT [facility] Name Value Range Interpretation Code Description Data Arabella rce(s) Supporting Document(s) Care Plan [facility] BZUEKy9vLwLYSgCt85/BJSxkJPUgv8MfUWxeGSs3WVloDZUwU2OxUGK8cV7wBOV0USiGOtZmUfNvOZO8 lbm [file] Cj4+XFhiwOEikWtyYVNMJkSrROW5WPnwHARJCh3W ID Date Data Source [id number] 03/24/2021 01:20:24 PM EDT [facility] Name Value Range Interpretation Code Description Data Arabella rce(s) Supporting Document(s) Consults [facility] VIHTCg3uBvJPSxVv74/OJWkqMANhz6FfBCovZIf8ITdnNRVcL3YcVOS6xV8zQFO7LGiLPcPxFpGrVEF6 lbm [file] BSDQogICAgICAvRjEgMTcgMCBSDQogICAgICAvRjIgMjAgMCBSDQogICAgICAvRjMgMjMgMCBSDQogIC VfRDHxMgZdYwBtGWBNVPvhXRMeWLEtVwTpQunoINWKSs7PHuOnFJVdTR9rwdOcxTJ3ZES+Yx0BNBIuED 8StDFCP3LlhCYnTJctD8LUDW3DAUM7DB1QxXPyZU4L rGVCD6PriQQgEz3hBMXcc1KfOk5dB4NXNSHOUQGtOYqhCBgbSGJkMOf2Q3G3ZJZgZ1KBC254wJFzxPe2 Ge5sZ1RJKTxISuRbRCbeTAtgTIAqWNf5X4V1PCJnO0YWE6WnLoFnmdHzN7S+UkEvYUFCFS3RWMWGAJj2 U4V2nIDxE9M8jDlDzXS1OT3MWX6QjLBrhREyv08+Pi PWXpXgSEGaC8LUQJGZSeBjNNxpLNxbSHLbTQv1J5I3YJYwC8JKI5lhI3z7OO9+NtXUBeCiMAVkNn5QPl FlTq0WPtIpLN5bxz3JNrQkVKTqNsyQYer7V9xzxxe2cOFwJiN7O4A9VfI4nVGjDC0CK3U2dWIyRDT8ME RhdGE+Kh4Lm5BbABUbZHb6S2qpLIKvGYTxXxHuvF97 J++2oldhcJG9Z4z3PIEZoLOrvBrLfsFqP2sRBNB4n3H1QDa/Ef4RPRE8vDs9zIPhHGIlZZm3aK6ugQk3 UvHqIV39TTZaLDhoeM1sZbn0E9Fku3DeNv2dMp6tzWNiZj6AOvWrIJL1wmPuJpNNVwW0iKqnaiidKTL7 O2p9uGH3Qz92s4ewkdWuy0AvEiA6IYusVQCaCyHezw DkMAM1qhBmpW2zvlKhMd8ARNRfENexpdPsCyPPTe0YHuElHS55VyjhpA2hkRJ+DQogICAgICAgICAgIC AgICAgICAgICAgICAgICAgICAgICAgICAgICAgICAgICAgICAgICAgICAgICAgICAgICAgICAgICAgIC AgICAgICAgICAgICAgICAgICAgICAgICAgICAgDQog ICAgICAgICAgICAgICAgICAgICAgICAgICAgICAgICAgICAgICAgICAgICAgICAgICAgICAgICAgICAg ICAgICAgICAgICAgICAgICAgICAgICAgICAgICAgICAgICAgICAgDQogICAgICAgICAgICAgICAgICAg ICAgICAgICAgICAgICAgICAgICAgICAgICAgICAgIC AgICAgICAgICAgICAgICAgICAgICAgICAgICAgICAgICAgICAgICAgICAgICAgICAgDQogICAgICAgIC AgICAgICAgICAgICAgICAgICAgICAgICAgICAgICAgICAgICAgICAgICAgICAgICAgICAgICAgICAgIC AgICAgICAgICAgICAgICAgICAgICAgICAgICAgICAg DQogICAgICAgICAgICAgICAgICAgICAgICAgICAgICAgICAgICAgICAgICAgICAgICAgICAgICAgICAg ICAgICAgICAgICAgICAgICAgICAgICAgICAgICAgICAgICAgICAgICAgDQogICAgICAgICAgICAgICAg ICAgICAgICAgICAgICAgICAgICAgICAgICAgICAgIC AgICAgICAgICAgICAgICAgICAgICAgICAgICAgICAgICAgICAgICAgICAgICAgICAgICAgDQogICAgIC AgICAgICAgICAgICAgICAgICAgICAgICAgICAgICAgICAgICAgICAgICAgICAgICAgICAgICAgICAgIC AgICAgICAgICAgICAgICAgICAgICAgICAgICAgICAg ICAgDQogICAgICAgICAgICAgICAgICAgICAgICAgICAgICAgICAgICAgICAgICAgICAgICAgICAgICAg ICAgICAgICAgICAgICAgICAgICAgICAgICAgICAgICAgICAgICAgICAgICAgDQogICAgICAgICAgICAg ICAgICAgICAgICAgICAgICAgICAgICAgICAgICAgIC AgICAgICAgICAgICAgICAgICAgICAgICAgICAgICAgICAgICAgICAgICAgICAgICAgICAgICAgDQogIC AgICAgICAgICAgICAgICAgICAgICAgICAgICAgICAgICAgICAgICAgICAgICAgICAgICAgICAgICAgIC AgICAgICAgICAgICAgICAgICAgICAgICAgICAgICAg RKUgDFAaNAk7E8urZFRrUSJpZE2xQUy5Va2+RUpUEqGfZJH9zmSnwH8LRP8bw6KvNFaoKPVbv9OfJCl1 QA7KCIZkZXcrWA8WAZonwp5XLRYnAAQgfBPFp8fyXfDgPKR2SXDuZigbOT5ZJBTnZ6ebapIcUTZyZBQF ISolZRVMGVfjRNQFDVQfNOAyIdYvSEsaJC8Ka4UerC A0DQo+Qo2QFA2wr9MxWCfuDyAeNN2jjk8GOOnBWnXuY8LrmpQ3XVNwBYJpTc2CSQVdQTWnoQUlTlQwOE PBJdKzA9XsyZ78FKRNYu9+HBwrkbCvGaaVWqNoEGIla5TaJKp7WX5VHERzAOd5sNOcZ24vc1PuqJHgPd uzUKC6SIPhqwWLShWWgxH8MUvoYXVeXZBlCU5xKc6k VLKoUFJqRuA8OYVXLR3GDKYuJSIydWXeBVGaAIPPWN2KXBbkRQO0BbnduxEvwCGtTNmnFL4VSIHddvAr MzIgMCBSDQo+Lj2LZB8cq2BpULqnGGQtDG6crj5PNWyIQwOfL7Y6nTRnD1J7SRkwFm5GJVWwJXRjGrTt FHEBHMeqUO5UOK4xxfF0IV6AqTGbNIZbZSJuaLHsVB n6T42poHFvSSorOZ4IEAO+Mau+Rm7DNERiZBIaWHPhLfIjUQFQLlMqA1KdC7BZp7DsP5HhNK20jGvshu ZfZPltQL1JDW5qLVPnEGPSBR7FpGJmqV4ltmIuSrPeEIQRAbLbO82abINuXQUtDFBeHPVxFl3MCNUwS0 CwblFwaKjbreCjKFKwLUEXHN9ZDKbdkgNzqPKiqMfy RB02uEesWH5IJk7IXiGlCI6hsp0HrFFnFu0XVEMqUT3AURIoFQRnNHRkUAD9GQPfAoRoHFtuNVOePWNf VQS8DATuGAVxPG9OEeYgXBAoZiSuBOVjCKNfXVIdaq7UBXIkPCCtZrQ3QGIcGSJzRYQwDGwhGFNxNGAd GRH4GRIcVMDvUB9JHwYkTNYjDCJ0LsXgKNRfCWDvlv 9BTVKjQZFtEiq8JZXcUSXaEAPxWOjoSZQhPOB8SJP6JVSrALVyUG7FHuDvAQTcNErqSjvaJGHhCPZmtk 5MAHGmSSByLTSpFOTjJJRpESThGTclSXWuEHKbNhE3UVKuPSFnNI5BYgUrNJHqYVC8UfFaSOHeLQKzyb 6RASNpUCGhEeN3CyWaDWQwAQMfBXvpHTLwKAW5GNWc CTQzYHOeZM5BLfYdDDBdUEQtMdJgJHVhOFVnox7JTSGjFCVkKWBaFIWcZJBdJJZuRWadDVPnYVF4HZib ESKgVFQzVT4THrQyMWRpHSD9JnerCVFzMMXefb8KBOLbRVZbPEm7YBFvSGEbGUZuDYsjDGOdENY4TNH9 BOWzJBZeHP5TKnDzOZRxKJlmOoJpTVTeEPBwha8KXH OyBCTtFgDtUWFlZSUaYHTcYBaiPDVdBHZ2TCP6LPNaASRvLG6VNvYbCAReVUirXdVdSCVqKYXhrc0ZGW NjPNZiVNS1ASZbNIPqIXFcPIxcUWNsPIS6CFZiSPLsOSNrCO1CTiKgVYKeHGb9WcscAYEsULXxgx5SKE ErERYrZThjOzGxQFFhOBOtETfqDNNbKBCuXMf2TEQp YCQuAJ2TKdDpAJFjLrEqGaXiXHGoIFJzdq9IJUBbGNDuMSU4EDBtUQYwXKBuGMcuTDLfLHStIbV7EJPa LHHsUA2DZbUmQAPjTsXhMHSrJJRaGGHsvx1SDQPzPJYaZtN0VnXkDFQoTERdIVsxSMNgECVwMFTyAKCo XRKzXE7IChHaLHtvMQAXEfc1OEldS0e1JNZsOK3CG4 Ogc5RrQjUmPYMPWTtbFT2qjhWvYVGhUz4NY2gEThfjCGIjGPA5AJPtSkB2VTBgOEJ2IWMxIvDtQAWhK4 HiIB2oYLUhQ0XkEHV1GJRyTMNbBMCtAXluBRIcFAG1GQX6YPJ0MxByTB9IIt9SJzV7PGN6zKZhGb4RDy W6CIXZYyZpIA8QFBm= ID Date Data Source [id number] 03/24/2021 12:26:04 PM EDT [facility] Name Value Range Interpretation Code Description Data Arabella rce(s) Supporting Document(s) Progress Notes [facility] NJJEQq7bAyZLNyNn95/NDFfeLJQpl1WyQYvfDXw8BSyxFPLjN9GfJAC9dU0fHRD9RViFFqAjPiUyEMA5 lbm [file] EzQSF3Q6FmVPQ3HuF7HHYxWiCcFH2OFa9OHlJ6IZH7eEWsMr5JGbB7MRBIRtNxYN3JAOq= ID Date Data Source [id number] 03/24/2021 12:13:35 PM EDT [facility] Name Value Range Interpretation Code Description Data Arabella rce(s) Supporting Document(s) Progress Notes [facility] DXMFOx8gKpAJDgMq41/KUMoeKAQsk7YkYZuzUFw2TFunARRgA8IuRKP5nF8hONO1BFaHLwQpYrOyDFH5 lbm [file] 0K ID Date Data Source [id number] 03/24/2021 05:26:27 AM EDT [facility] Name Value Range Interpretation Code Description Data Arabella rce(s) Supporting Document(s) Nursing Note [facility] PKFCGh3vTbWRPjXf99/SMBaoUCWar3IvGYceAMq7MVwnSTVhK9CzOJF9vM3aYFB9QMgZTfHqUlIyRWU2 lbm [file] MhNQYwDxE0CoZ3KyIfJKNpUqRbXL0OTr2VExF5IVX3aMMwFp7XRyUvRBwGCsCxPA0XXCk= ID Date Data Source [id number] 03/24/2021 05:34:00 AM EDT [facility] Name Value Range Interpretation Code Description Data Arabella rce(s) Supporting Document(s) AST 12 IU/L 15-37 Below low normal [facility] Sulfasalazine and sulfapyridine have the potential to falsely depressAspartate Aminotransferase results. Baseline values before medication administration are recommended. ALT 17 IU/L 13-56 Normal (applies to non-numeric resul ts) [facility] Sulfasalazine and sulfapyridine have the potential to falsely depressAlanine Aminotransferase results. Baseline values before medication administration are recommended. Alkaline Phosphatase 53 mIU/ml 50-136 Normal (applies to non-num madiha results) [facility] Total Bilirubin 0.70 mg/dl 0.20-1.00 Normal (applies to non-numeric results) [facility] Blood Urea Nitrogen 6 mg/dl 7-18 Below low normal [facility] Creatinine 0.62 mg/dl 0.51-0.95 Normal (applies to non-numeric resul ts) [facility] N-Acetylcysteine (NAC) and Metamizole em ve the potential to falselydepress Creatinine results. Baseline values before medication adminstration are recommended. Patients undergoing treatment with phenindione will have falselydepressed results. Patients on phenindione therapy should be tested with an alternativeCREA method.Toxic levels of acetaminophen may lead to falsely depressed results forpatient samples. Glomerular Filtration Rate >90.00 mL/min/1.73m2 [facility] GFR Reference Ranges:Normal Function or Mild Renal [...] of Health and the National KidneyFoundation. The Cropsey method used in calculating this result is traceable to IDVT standards. Glucose 91 mg/dl 70-110 Normal (applies to non-numeric resul ts) [facility] Sulfasalazine has the potential to false ly depress Glucose results. Sulfapyridine has the potential to falsely elevate Glucose results. Baseline values before medication administration are recommended. Calcium 8.2 mg/dl 8.5-10.1 Below low normal [facility] Total Protein 6.2 g/dl 6.4-8.2 Below low normal [facility] Albumin 2.8 g/dl 3.4-5.0 Below low normal [facility] Sodium 141 mEq/L 136-145 Normal (applies to non-numeric resul ts) [facility] Potassium 3.9 mEq/L 3.5-5.1 Normal (applies to non-numeric resul ts) [facility] Chloride 113.0 mEq/L 98.0-107.0 Above high normal [facility] Anion Gap 8.1 [facility] Carbon Dioxide 23.8 mMol/L 21.0-32.0 Normal (applies to non-numeric results) [facility] The above 16 analytes were performed by [facility] [id number], ,[place] [address] ID Date Data Source [id number] 03/24/2021 05:34:00 AM EDT [facility] Name Value Range Interpretation Code Description Data Arabella rce(s) Supporting Document(s) Magnesium 2.0 mg/dl 1.6-2.6 Normal (applies to non-numeric resul ts) [facility] The above 1 analytes were [facility] [id number], ,[place] [address] ID Date Data Source [id number] 03/24/2021 05:26:00 AM EDT [facility] Name Value Range Interpretation Code Description Data Arabella rce(s) Supporting Document(s) WBC 6.03 x1000/ul 4.80-10.00 Normal (applies to non-numeric re sults) [facility] RBC 3.58 x1Mil/ul 4.20-5.40 Below low normal [facility] Hemoglobin 9.3 g/dl 12.0-16.0 Below low normal [facility] Hematocrit 30.2 % 37.0-47.0 Below low normal [facility] MCV 84.4 fL 81.0-99.0 Normal (applies to non-numeric resul ts) [facility] MCH 26.0 pg 27.0-31.0 Below low normal [facility] MCHC 30.8 g/dl 32.2-37.0 Below low normal [facility] RDW 16.3 % 11.5-14.5 Above high normal [facility] Platelet Count 230 x1000/ul 130-400 Normal (applies to non-numeric results) [facility] MPV 11.6 fL 9.4-12.4 Normal (applies to non-numeric resul ts) [facility] [facility] Neutrophils 46.6 % 40.0-74.0 Normal (applies to non-numeric resu lts) [facility] Lymphocytes 41.1 % 19.0-48.0 Normal (applies to non-numeric resu lts) [facility] Monocytes 9.1 % 3.4-9.0 Above high normal [facility] Eosinophils 2.0 % 0.0-7.0 Normal (applies to non-numeric resu lts) [facility] Basophils 1.0 % 0.0-2.0 Normal (applies to non-numeric resul ts) [facility] Immature Granulocytes 0.2 % 0.0-0.5 Normal (applies to non-nu meric results) [facility] Nucleated RBCs 0.00 % 0.00-0.20 Normal (applies to non-numeric r esults) [facility] Abs. Neutrophils 2.81 x1000/ul 1.92-8.31 Normal (applies to non-numeric results) [facility] Abs. Lymphocyte 2.48 x1000/ul 1.20-3.70 Normal (applies to non-n umeric results) [facility] Abs. Monocytes 0.55 x1000/ul 0.14-0.97 Normal (applies to non-nu meric results) [facility] Abs. Eosinophils 0.12 x1000/ul 0.00-0.76 Normal (applie s to non-numeric results) [facility] Abs. Basophils 0.06 x1000/ul 0.00-0.22 Normal (applies to non-n umeric results) [facility] Abs. Immature Gran. 0.01 x1000/ul 0.00-0.02 Normal (appl ies to non-numeric results) [facility] Abs. Nucleated RBCs 0.00 x1000/ul 0.00-0.02 Normal (appl ies to non-numeric results) [facility] The above 24 analytes were performed by [facility] [id number], ,[place] [address] ID Date Data Source [id number] 03/23/2021 11:42:40 PM EDT [facility] Name Value Range Interpretation Code Description Data Arabella rce(s) Supporting Document(s) Care Plan [facility] PKFPZd6qNwUCQuYg31/KOEatVCGxz1ShHIpiWJb9BRbiTRApH5FmIKU4tG7nYKR9TZmYLlPmPqQqTDF3 [facility] [file] AgICAgICAgICAgICAgICAgICAgICAgICAgICAgICAg ICAgICAgICAgICAgICAgICAgICAgICAgICAgICAgICAgICANCiAgICAgICAgICAgICAgICAgICAgICAg ICAgICAgICAgICAgICAgICAgICAgICAgICAgICAgICAgICAgICAgICAgICAgICAgICAgICAgICAgICAg ICAgICAgICAgICAgICAgICANCiAgICAgICAgICAgIC AgICAgICAgICAgICAgICAgICAgICAgICAgICAgICAgICAgICAgICAgICAgICAgICAgICAgICAgICAgIC AgICAgICAgICAgICAgICAgICAgICAgICAgICANCiAgICAgICAgICAgICAgICAgICAgICAgICAgICAgIC AgICAgICAgICAgICAgICAgICAgICAgICAgICAgICAg ICAgICAgICAgICAgICAgICAgICAgICAgICAgICAgICAgICAgICANCiAgICAgICAgICAgICAgICAgICAg ICAgICAgICAgICAgICAgICAgICAgICAgICAgICAgICAgICAgICAgICAgICAgICAgICAgICAgICAgICAg ICAgICAgICAgICAgICAgICAgICANCiAgICAgICAgIC AgICAgICAgICAgICAgICAgICAgICAgICAgICAgICAgICAgICAgICAgICAgICAgICAgICAgICAgICAgIC AgICAgICAgICAgICAgICAgICAgICAgICAgICAgICANCiAgICAgICAgICAgICAgICAgICAgICAgICAgIC AgICAgICAgICAgICAgICAgICAgICAgICAgICAgICAg ICAgICAgICAgICAgICAgICAgICAgICAgICAgICAgICAgICAgICAgICANCiAgICAgICAgICAgICAgICAg ICAgICAgICAgICAgICAgICAgICAgICAgICAgICAgICAgICAgICAgICAgICAgICAgICAgICAgICAgICAg ICAgICAgICAgICAgICAgICAgICAgICANCiAgICAgIC AgICAgICAgICAgICAgICAgICAgICAgICAgICAgICAgICAgICAgICAgICAgICAgICAgICAgICAgICAgIC AgICAgICAgICAgICAgICAgICAgICAgICAgICAgICAgICANCiAgICAgICAgICAgICAgICAgICAgICAgIC AgICAgICAgICAgICAgICAgICAgICAgICAgICAgICAg ICAgICAgICAgICAgICAgICAgICAgICAgICAgICAgICAgICAgICAgICAgICANCjw/xWOoZ5nhmITavqU9 B9ouDc6PSt1YEZ8wk0NlHYMyUBbvguDaRhaIUmUfTFCcEtsNYym0LWtoQF0DxDMiO5WbT4QqHEjsNL0H MMPvLSHfkOKwHUHyRUJnYwL0UGNnSBurVW5DcTMyKA gxQHTzLTJaDI4PFOSvX469pnXoBM3GTx1IAkGpLK3mop8TElToDBSiAzgDErb3GYazQO5KoURzpVEvRz UoOEAKTuRtW1vug8DnSmFdASZXXZafKP0Ac3AbzJYeICy+Rb8EVP9gv3CfVDynFjDlDJ8cug8JUJbRDq GsY5FhkGgnLNPzyjIeWMnenqEprLUVTKE0ZJ2oRREk hgFpOHsiVSNAUCG3LVceYQCsOfUmVWYtCWz9GtCKDOoJCnBjL2Fsy5ZrXbC6BUMxIrVbYGnmINCiDzB9 IV48dWurND2DAWShSZYgFU78DJC8OHRaGy6HJb3PFfIyBR2foy7SFvjeTSWqHvlGQkk8MMykGQ1OgGTp S5XwlGYmj3eRKeDqN5KKETJaNPBePy0XQZUyIuFpTD WpMGdiJP7zNAIlQDWEsEolepE0SH3PTX1ikaAxJG5JPyTuXi2lCe4DQfJjF9HqB7RdZFGlMUIVYAbsBJ 9JOKhpLR1iRE3Fp8TMpZFwwF8obv4ULKEgDUMkQvufbv0DEmarS0D0yAzvBBJvFfFlWCGUEYtnBV7TWA XvTCO0YKHxBJMeIRREJdHkX04oOM4PQ6Jom76kQoJ8 ABKsNhJuFReuWP30yEofcuGbvORwcTtzDW4NHj2+DQplbmRvYmoNCnhyZWYNCjAgMjgNCjAwMDAwMDAw UEPbGkE0NoLqNc4YQSYlTBFvWSZzIeEiNEIsNXDfPCjoCFQnRLOvReVpEIGzHQHxCG9SCkFmVKXzIpH3 UXPrMLAtDIPpse2JFVMyXHOkPCL9TeYiIFQeEVVlWV laSMXpYPSnSDY7XPYwJVAvPK5VHlSfFQItZLWnBgIgSINoGSZixr3FWJLqERTwYaSyNIDsNSPcDBMePO hkQTDoEXRtVpT3FOPiQPCnUI5DVuQyNZUjITR4FWWzPXGgVNGbet1BERIfAUGhWNT7FtEzIXIhBOZsFT egKSGhPRB3UogjXLJgDODwEX4JFeOdMMLrFAF3NFWa WJPsYWSuxt3TEWNnZHVoCpVvVXMcPBJaHMUrLWneQTZmGHR1OQU5UXEkUCAfKI4TQpTnMLQbZRo4KhGs ZPDqEUUcdy2IYJFkGAOlImb6OwEoETCbWBBzFAqiTISdEPJ5OQPcTHRhPMShXD3OSvOuCHCyDWvyMCIu VHTzFMAldr5VBWGsTPLzJUX9PyShSQUnXAZrCAetKK HyVMJ4PXH8JYWjSHCiJJ6LPsWiWEYeMzDhNGJbGKXsBXNxhl6BJDPnFVIdOHR0WWRoTPSmVCAgXCecVB EoEUMsYeS3XXKhYFMfSZ7PZmNhVYSeCyGoCjMfUYKnVVSqyf2VRRGvZZSwOfSrROMsEPWaPQTaUTbcGB MyCVUnSjd5NXLuHIEdVK1SHnBoFRUkSmS5GqLuKZVo PJBzvc2SqTHrbGxuaz9INDvLOw6IyNtyGBR7WKqoBa5shTHeLdTdLPZYGc6NiyRbUMAuFSZPYWkuRHNq ZQkwAFz2YhH1KAJpGGUgMpHeOKDyXSJlUuHjFZcoSiyoVcC4KZF9OFhkRlIuYQHxNOB1P6CoTvL5TrBo RBN4RFLbFNT+PW1aHOt+Gd3Je3YfytJ6tbPcIOvaDdZ3MS5OGPYDS9UHZq== ID Date Data Source [id number] 03/23/2021 10:26:00 PM EDT [facility] Name Value Range Interpretation Code Description Data Arabella rce(s) Supporting Document(s) Glucose, Fingerstick 103 mg/dl 70-110 Normal (applies to non-num madiha results) [facility] The above 1 analytes were performed by [facility] [id number], ,[place] [address] ID Date Data Source [id number] 03/23/2021 10:23:00 PM EDT [facility] Name Value Range Interpretation Code Description Data Arabella rce(s) Supporting Document(s) Lactic Acid 1.8 mMol/L 0.4-2.0 Normal (applies to non-numeric resu lts) [facility] The above 1 analytes were performed by [facility] [id number], ,[place] [address] ID Date Data Source [id number] 03/23/2021 09:48:00 PM EDT [facility] Name Value Range Interpretation Code Description Data Arabella rce(s) Supporting Document(s) AST 12 IU/L 15-37 Below low normal [facility] Sulfasalazine and sulfapyridine have the potential to falsely depressAspartate Aminotransferase results. Baseline values before medication administration are recommended. ALT 16 IU/L 13-56 Normal (applies to non-numeric resul ts) [facility] Sulfasalazine and sulfapyridine have the potential to falsely depressAlanine Aminotransferase results. Baseline values before medication administration are recommended. Alkaline Phosphatase 56 mIU/ml 50-136 Normal (applies to non-num madiha results) [facility] Total Bilirubin 0.80 mg/dl 0.20-1.00 Normal (applies to non-numeric results) [facility] Blood Urea Nitrogen 7 mg/dl 7-18 Normal (applies to non-nume ny results) [facility] Creatinine 0.67 mg/dl 0.51-0.95 Normal (applies to non-numeric resul ts) [facility] N-Acetylcysteine (NAC) and Metamizole em ve the potential to falselydepress Creatinine results. Baseline values before medication adminstration are recommended. Patients undergoing treatment with phenindione will have falselydepressed results. Patients on phenindione therapy should be tested with an alternativeCREA method.Toxic levels of acetaminophen may lead to falsely depressed results forpatient samples. Glomerular Filtration Rate >90.00 mL/min/1.73m2 [facility] GFR Reference Ranges:Normal Function or Mild Renal [...] of Health and the National KidneyFoundation. The Cropsey method used in calculating this result is traceable to IDMS standards. Glucose 48 mg/dl 70-110 Below lower panic limits [facility] Sulfasalazine has the potential to false ly depress Glucose results. Sulfapyridine has the potential to falsely elevate Glucose results. Baseline values before medication administration are recommended.Repeat and Verified Called To (First Last):OBEY VALENTINE Degree/Accreditation of Person Called:RNLocation Called: CL4Mmxycihs Tests and Results Called:GLU 48Additional Tests that were Called:Read Back (Y/N):YDate:03/23/2021Time:2148By:CARTER CORDOBA Calcium 8.2 mg/dl 8.5-10.1 Below low normal [facility] Total Protein 6.6 g/dl 6.4-8.2 Normal (applies to non-numeric re sults) [facility] Albumin 3.0 g/dl 3.4-5.0 Below low normal [facility] Sodium 140 mEq/L 136-145 Normal (applies to non-numeric resul ts) [facility] Potassium 3.3 mEq/L 3.5-5.1 Below low normal [facility] Chloride 114.0 mEq/L 98.0-107.0 Above high normal [facility] Anion Gap 8.3 [facility] Carbon Dioxide 21.0 mMol/L 21.0-32.0 Normal (applies to non-numeric results) [facility] The above 16 analytes were performed by [facility] [id number], ,[place] [address] ID Date Data Source [id number] 03/23/2021 09:30:00 PM EDT [facility] Name Value Range Interpretation Code Description Data Arabella rce(s) Supporting Document(s) Magnesium 2.0 mg/dl 1.6-2.6 Normal (applies to non-numeric resul ts) [facility] The above 1 analytes were performed by [facility] [address], ,[place] [address] ID Date Data Source [id number] 03/23/2021 09:30:00 PM EDT [facility] Name Value Range Interpretation Code Description Data Arabella rce(s) Supporting Document(s) C-Reactive Protein (Non-Cardiac) <2.90 mg/L 0.00-3.00 Normal (applies to non- numeric results) [facility] The above 1 analytes were performed by [facility] [address], ,[place] [address] ID Date Data Source [id number] 03/23/2021 09:05:00 PM EDT [facility] Name Value Range Interpretation Code Description Data Arabella rce(s) Supporting Document(s) WBC 6.19 x1000/ul 4.80-10.00 Normal (applies to non-numeric re sults) [facility] RBC 3.47 x1Mil/ul 4.20-5.40 Below low normal [facility] Hemoglobin 9.1 g/dl 12.0-16.0 Below low normal [facility] Hematocrit 29.8 % 37.0-47.0 Below low normal [facility] MCV 85.9 fL 81.0-99.0 Normal (applies to non-numeric resul ts) [facility] MCH 26.2 pg 27.0-31.0 Below low normal [facility] MCHC 30.5 g/dl 32.2-37.0 Below low normal [facility] RDW 16.8 % 11.5-14.5 Above high normal [facility] Platelet Count 228 x1000/ul 130-400 Normal (applies to non-numeric results) [facility] MPV 11.4 fL 9.4-12.4 Normal (applies to non-numeric resul ts) [facility] Neutrophils 54.6 % 40.0-74.0 Normal (applies to non-numeric resu lts) [facility] Lymphocytes 34.7 % 19.0-48.0 Normal (applies to non-numeric resu lts) [facility] Monocytes 8.7 % 3.4-9.0 Normal (applies to non-numeric resul ts) [facility] Eosinophils 1.1 % 0.0-7.0 Normal (applies to non-numeric resu lts) [facility] Basophils 0.6 % 0.0-2.0 Normal (applies to non-numeric resul ts) [facility] Immature Granulocytes 0.3 % 0.0-0.5 Normal (applies to non-nu meric results) [facility] Nucleated RBCs 0.00 % 0.00-0.20 Normal (applies to non-numeric r esults) [facility] Abs. Neutrophils 3.37 x1000/ul 1.92-8.31 Normal (applies to non-numeric results) [facility] Abs. Lymphocyte 2.15 x1000/ul 1.20-3.70 Normal (applies to non-n umeric results) [facility] Abs. Monocytes 0.54 x1000/ul 0.14-0.97 Normal (applies to non-nu meric results) [facility] Abs. Eosinophils 0.07 x1000/ul 0.00-0.76 Normal (applie s to non-numeric results) [facility] Abs. Basophils 0.04 x1000/ul 0.00-0.22 Normal (applies to non-n umeric results) [facility] Abs. Immature Gran. 0.02 x1000/ul 0.00-0.02 Normal (appl ies to non-numeric results) [facility] Abs. Nucleated RBCs 0.00 x1000/ul 0.00-0.02 Normal (appl ies to non-numeric results) [facility] The above 24 analytes were performed by [facility] [id number], ,[place] [address] ID Date Data Source [id number] 03/23/2021 07:56:26 PM EDT [facility] Name Value Range Interpretation Code Description Data Arabella rce(s) Supporting Document(s) Nursing Note [facility] NPYVAl7nBhJRSnKo31/GWQgrOLCyl1UpSCcwXSp9QFfuUJDvG6XwRNR0uC9pLLZ2QOrNZzIiIoTkDYA1 lbm [file] 9GDQo= ID Date Data Source [id number] 03/23/2021 06:01:26 PM EDT [facility] Name Value Range Interpretation Code Description Data Arabella rce(s) Supporting Document(s) H&P [facility] DGYGLc9eRsENNmBw37/RDYdlQAIni9XrKMkaQZz6LPaeKFKpL0ZuQIO6nR6yLYK1LXjRExBcPcWmCEI5 lbm [file] AgICAgICAgICAgICAgICAgICAgICAgICAgICAgICAgICAgICAgICAgICAgICAgICAgICAgICAgICAgIC TkJACzNBExYSTbQWUyYZRzUOXbQI4OIWJfFHXgRCBd ICAgICAgICAgICAgICAgICAgICAgICAgICAgICAgICAgICAgICAgICAgICAgICAgICAgICAgICAgICAg ESJjPDBvRIGbOKGzOALtIITqBSEzDYMzYDNvCKRhCX5LQKGpEZToUMJoULWoDJLlGCDqUCUtRDNlNSSm ICAgICAgICAgICAgICAgICAgICAgICAgICAgICAgIC PiYNAkGQAjPCJkISVhNDFlEECqFRJoFINgFKOzRUOtRUMvJMGxUJCdXH5VENVcVZQtDDMaHFBgNTAhUI AgICAgICAgICAgICAgICAgICAgICAgICAgICAgICAgICAgICAgICAgICAgICAgICAgICAgICAgICAgIC ZvNGReICLdEANsODJpGEPmHNDhBYTjYE8GHZOaZTFm ICAgICAgICAgICAgICAgICAgICAgICAgICAgICAgICAgICAgICAgICAgICAgICAgICAgICAgICAgICAg PDTrTVUoVOPlUVLnFGMhIPCaDGWvOVCzZHXtJHXkVEKlZY9LDZAxSWGaGJReDSFuPVOcFUGvVCUtJYDv ICAgICAgICAgICAgICAgICAgICAgICAgICAgICAgIC JcBYJdZSFvCORyEDPuPZVdSJUkGSGcZITcDVHsRSCzWCSmRFIjZRMmEWTlRZ9WQOEsAEBcHYVzTLYxNM AgICAgICAgICAgICAgICAgICAgICAgICAgICAgICAgICAgICAgICAgICAgICAgICAgICAgICAgICAgIC EdPGTaZMVgZDOgHMNvBIPkCYGjNXWyASAwHL6XKTTh ICAgICAgICAgICAgICAgICAgICAgICAgICAgICAgICAgICAgICAgICAgICAgICAgICAgICAgICAgICAg SCMuJRHdHCBtWOPiTKJwZNVtVAOyISGnKLXqEPZdHMJrRGDdZF8AKTLhKZBdWZKwPDKuMMInLKKnYBKt ICAgICAgICAgICAgICAgICAgICAgICAgICAgICAgIC RoMVCbACEbQKCyXIIdTWWoRPExRMPrRQNwIWSlCCTuSMSmGBQxSXUuHHGtQGFmWI6QKFWuFQFhLXLuHH AgICAgICAgICAgICAgICAgICAgICAgICAgICAgICAgICAgICAgICAgICAgICAgICAgICAgICAgICAgIC HrRJDcLTIuQHFjIUGnZWCjSPThSQMaEEZoGTUbKE6E FM91iVIux4H8UKAsVD3clsf/Bo8GMUamxtOutPTcDP0DAqPvGW9lup4DEjWyXA6oym6CTIgLEdBdH6Y3 xWMqKDAmBCBGWdZeQ21aLSsbHc89PYfgCJMyMrHrGRx2Xr6PHwTjP4ttWCOvQvW4KHLgZcI6DLLsXrW0 FTDvGoBgWZCvWHXpNL9ELQHtW566jtMeFB3CLe6PMj WpRE7nzs5QPnpaCHBwHfiWPpu5OEmuAC7VkBNbmWAgZIPoMSBKSyXjK0lwr2YbCiaqBXXSIFgnDB5Tn2 VudCAxDQo+Hs7CJE5bj7CbBWyoDQPeBR3ibq9CGQyWDdYaF2KnhUecCXrnPWPxdOCUnZZfmrKQxZBaPI ANNWHzrIH3TeD6YcCeQpLvZRU1MPOaSF0jRSgdDE8Y SOJ7NHbmPDChVQIjS5iBYoZxBVxyBBUtiBrxBA4WFlQbL4OytmSyhLUgXbIqIPZBBg5+DQplbmRvYmoN GpV7NDQow6BsSIx7GU3WTNViTUssGU8TBCQgaH1yGXdfTF7EJxJwBXGvWLYEMiOyP92eoJFqONs7O5Hy YmVkZGVkRmlsZXMgPDwvTmFtZXMgWyBdDQogID4+ID 4+OVlcWF7ISWwmhwIbNFKyCi1COZVxHJGrVG3oVGIsPFPaB4L8tUxhQZLUEeRbN2qgkevkCK5sDWSuZ1 67gUqyytTvWPN3NBUmEn4MFEGoYFO1OZRcsJKaEuFyAZWGACdlEJ7SrGPwIPZ3vN7vXYjqXBJcEIMlE7 fQBwGmqMxaOE20gVpqpxVxjBSgNSe+Ti8TGD4kh7Vv FIn8xeQmIEztLIFbYWvmTHFxMNZlDEGlBSK0QMQ1NQGGSqHlTJHqGUBdXWwhAJSiJMMllx8EVVRiAFZh PUI9PUUsRXUkWVPyVYarBXCjAXChPXTsKTKbQVXlPL7LGgNqHRYvMMImVTrfQNClEXSqgw9TQDFbXRMa JiCkSpRfWALaQIJnPVzpTPRvPOQgYlT1XILvXYKeAP 9QYmOaHGGsUKX0VoruOXTvLJZyro6WUXElXCWpXWY8ANVlIXOrXDHvGWbbQLUyLWF5UWDxSHTcEZAiUS 4KVxZgCETkIKvhUwxrJHIcNZXlpe1XXLBuMPVyYCB5CCLxDKEpNEPzJMazZVYqXWT7ESavZNJoROGqYP 6KNlWzGLUrYRT5PbUiXBIbSAKmff0BPUEgNBUmIIOq ApCtRYFcPCKmFUteYMKoYVWyNFIiVIPoWTQwTG0FLqSgJNZfLFE4RXGyINPnHVAlct3KHYGyRDVfSFb8 XmToCNYyPVNcNDgrXEAyDCXcYCGhJXWcRDIiRT3WQyCsYYOtByL9ZDhkVNWxOXHgqx6KHLPvCUErGIiq NFDmMPStFHYbCIyrTFRhFYB6BGU9FKEfVCPqWJ3ANh QaUBJpUeKiXeIdGQThQOPopa6UFCCvRGSxEGFnDQPpAXZoGWEbSFtcFYMiRUU4EuQbVVNxWIHfIY1JEq SoYKVhSeV2LMRqKGWxWMCbij7JIPJrEXUqTfqwYoHsHXUyOTIoPGivTVKyGAU6Vla4VMGcETYzLC0AIl DjKRTyAfk0PFrwOFQuPKKrvo6YDHEqZAVuDZHbFuIz DXQaHJJtKNbkEXReYMB8MZi5ZFBfXYVdHR5LZqFtWMNkYibhARgcEROlHXJuoq6BIOCmENKoBNGmPkBz ZJDlKWPuRYvkVKKwHFObXta2MHBjHBUqYA3MKoSuMTMaPkR8HyAgMFAhTMDvdo0GXIJkVARrQJD8QRHe PBCbXQZeYUzyDXFjALFePIZpJTTzKCKtBV2PPmLpXH EpXjG6BTEjQJTmBVUvhc7VYQYrGNMhNgL1PBWaRONvTJLrDVwfXWHoNAXoIco0VTLvKOOjYU2HWeZvPE cgYWRAEax4FApzP5x2VAL5GC8VL1Zkl6SiTucvLHTOZDpsZC3rznSiZOBhUe4IV9kADngbAWOoUUysWO HfUEHpNaWmYvR3UDClMfH8LRI6RxlfXR7kEUP2ZTC1 AQJkR6PdLzSkYcVdLlm3GnMfTAPjEvItYuI1UsWuJW7MAe4ZVqZ6TJI2hQHnRr9JKbInSvwPMdPyMJ0C DQo= ID Date Data Source [id number] 03/22/2021 08:28:35 PM EDT [facility] Name Value Range Interpretation Code Description Data Arabella rce(s) Supporting Document(s) Progress Note [facility] NAHPFx5bIiTQYuYv22/QLUkzKICmr9McVRwcLDs2ZDbmVXIbY1WhVQT2qJ2hRPF1RRpRUnWdJpOzQPE9 lbm HhRiaKGjBfCJHnHouFCfGfIMngJeodsEDoUR1RjIY0YNGtE79wWIWlDLQaL7QfJOV6VFD+Es3TOIGadJ HyZH9ZIckO0Bbzn+V2ED4dPN1OwRBiRJ5fWZngTpyFz8Jrdg7SVOOrdvKNUVUaOvtCyYp695j5ZLyoCh nbhcpvDU4dA1Y+u9/+vERKILs4wgKO78Bupm+vv4YR Z8M5+/orVk/z+Hpa/DITJvi4U74aSKC/rs7oJ7msj/cYs7W03i/rwQmTgWAnkROw/ujobBr/2Um33rWl DDDEMqf19EFGELhZRFtZp1t/Kzvvs+xyKE4oYC4k2ZorQLSFzjgH8py2u0KaR3rpJVL2wkReHiW4BMdn 47OBFaN4hjHpDiXf0NgCXRxf9a876xcHK+fvIRTUuB U1Lc+JpIM+2iaog4z1pqYyriHmID9enlqxCr9e7IREO6TgI9uOwAeyixlfdZ1MRE5zFnWI9Lw8bfqpbI ZgcK+a5zkilRn9B1mkxhzIpOLsEz2l5uLU/S8KEuLxRBQvSlLJN1gQ1ZedFqYsav/s/Nf2gvaNwtlLb9 9dcuFrJqYXz3iy/RLl++ZNVzuVSwjsEveZPf0cn9wk rKrea8hob9Ad1upLh7hhyc+o60uzod6O/FP5HmG3uWJrC+5OFhMlZTm3XZR8AjS1TzNwAzGBuF4t/ARNAUD [file] ID Date Data Source [id number] 03/22/2021 06:09:00 PM EDT [facility] ital TSYSORDER [id number] Name Value Range Interpretation Code Description Data Arabella rce(s) Supporting Document(s) URINE COLOR. [facility] URINE APPEARANCE CLEAR [facility] GLUCOSE (UA) NEGATIVE mg/dL NEGATIVE [facility] URINE BILIRUBIN NEGATIVE NEGATIVE [facility] URINE KETONE 5(TRACE) mg/dL NEGATIVE [facility] SPECIFIC GRAVITY,URINE 1.015 1.005-1.030 [facility] URINE BLOOD NEGATIVE NEGATIVE [facility] PH,URINE 7.5 5.0-9.0 [facility] URINE PROTEIN NEGATIVE mg/dL NEGATIVE [facility] jay URINE UROBILINOGEN NORMAL(0.2-1) mg/dL 0-1 [facility] URINE NITRATE NEGATIVE NEGATIVE [facility] URINE LEUKOCYTE ESTERASE NEGATIVE NEGATIVE [facility] ID Date Data Source [id number] 03/22/2021 05:30:00 PM EDT [facility] Name Value Range Interpretation Code Description Data Arabella rce(s) Supporting Document(s) COVID-19 NEGATIVE [facility] This lab was ordered by [facility] and reported by [facility]. ID Date Data Source [id number] 03/22/2021 06:06:00 PM EDT [facility] TSYS[facility] [id number] Name Value Range Interpretation Code Description Data Arabella rce(s) Supporting Document(s) COVID-19 NEGATIVE NEGATIVE [facility] Negative results should be treated as [...] are for the indentification of SARS-CoV-2 RNA. HufQBYO-MrE-0 RNA is generally detectable in respiratorysamples during the actue phase of infection. ID Date Data Source [id number] 03/22/2021 04:58:00 PM EDT [facility] DATE OF EXAMINATION: 03/22/2021 14:46 EDT [...] Name Value Range Interpretation Code Description Data [facility] rce(s) Supporting Document(s) ID Date Data Source [id number] 03/22/2021 03:33:00 PM EDT [facility] l TSYSORDER [id number] Name Value Range Interpretation Code Description Data [facility] rce(s) Supporting Document(s) LACTIC ACID 0.9 mmol/L 0.4-2.0 [facility] ID Date Data Source [id number] 03/22/2021 03:31:00 PM EDT [facility] l TSYSORDER [id number] Name Value Range Interpretation Code Description Data [facility] rce(s) Supporting Document(s) GLUCOSE 88 mg/dL 74-106 [facility] BLOOD UREA NITROGEN 11 mg/dL 7-18 [facility] ital CREATININE 0.71 mg/dL 0.6-1.0 [facility] SODIUM 139 mmol/L 136-145 [facility] POTASSIUM 4.2 mmol/L 3.5-5.1 [facility] CHLORIDE 105 mmol/L 98-107 [facility] CO2 23 mmol/L 21-32 [facility] CALCIUM 9.2 mg/dL 8.5-10.1 [facility] ANION GAP 11.0 mmol/L 5-12 [facility] GLOMERULAR FILTRATION RATE >90 mL/min [facility] GFR IS CALCULATED IN mL/min/1.73m2 JUDITH L FUNCTION: >90MILDLY DECREASED: 60-89MILDY TO MODERATELY DECREASED: 45-59 MODERATELY TO SEVERELY DECREASED: 30-44SEVERELY DECREASED: 15-29RENAL FAILURE: <15 AST 20 U/L 15-37 [facility] ALT 20 U/L 12-78 [facility] ALKALINE PHOSPHATASE 70 U/L 46-116 [facility] pital TOTAL BILIRUBIN 1.0 mg/dL 0.2-1.0 [facility] TOTAL PROTEIN 7.6 g/dl 6.4-8.2 [facility] ALBUMIN 3.4 gm/dL 3.4-5.0 [facility] ID Date Data Source [id number] 03/22/2021 03:31:00 PM EDT [facility] l TSYSORDER [id number] Name Value Range Interpretation Code Description Data [facility] rce(s) Supporting Document(s) LIPASE 117 U/L 73-393 [facility] ID Date Data Source [id number] 03/22/2021 03:24:00 PM EDT [facility] al TSYSORDER [id number] Name Value Range Interpretation Code Description Data [facility]ella rce(s) Supporting Document(s) HCG,SERUM NEGATIVE NEGATIVE [facility] False negative results may occur when th e levels of hCG arebelow the sensitivity level of the test. If isstill suspected, a first morning urine specimen should becollected 48hrs later.This test has a sensitivity of 10mIU/mL in serum krl06fFU/mL in urine. ID Date Data Source [id number] 03/22/2021 03:10:00 PM EDT [facility] l TSYSORDER [id number] Name Value Range Interpretation Code Description Data Arabella e(s) Supporting Document(s) WHITE BLOOD COUNT 6.3 K/mm3 4.0-10.0 [facility] al RED BLOOD COUNT 3.90 M/mm3 4.00-5.50 L [facility] HEMOGLOBIN 10.2 gm/dL 12.0-16.0 L [facility] HEMATOCRIT 31.5 % 36.0-48.8 L [facility] MEAN CELL VOLUME 80.8 fl 80-96 [facility] MEAN CORPUSCULAR HEMOGLOBIN 26.2 pg 27.0-31.[address] [facility] MEAN CORPUSCULAR HGB CONC 32.4 g/dl 32.0-36.0 [facility] RED CELL DISTRIBUTION WIDTH 16.4 % 10.0-14.[address] [facility] PLATELET COUNT 146 K/mm3 172-450 L [facility] MEAN PLATELET VOLUME 12.1 fl 9.0-13.0 [facility] pital GRAN % 60.8 % 50-80.0 [facility] IG% 0.2 % 0.0-0.2 [facility] LYMPH % 30.7 % 25.0-50.0 [facility] MONO % 6.7 % 2.0-10.0 [facility] EOS % 1.0 % 0-5.0 [facility] BASO % 0.6 % 0.0-2.0 [facility] GRAN # 3.8 K/mm3 2.0-8.00 [facility] IG# 0.0 K/mm3 0.0-0.2 [facility] LYMPH # 1.9 K/mm3 1.0-5.0 [facility] MONO # 0.4 K/mm3 0.10-1.20 [facility] EOS # 0.1 K/mm3 0.0-0.5 [facility] BASO # 0.0 K/mm3 0.0-0.2 [facility] ID Date Data Source [id number] 03/19/2021 08:43:00 AM EDT [facility] l DATE OF EXAMINATION: 03/19/2021 8:12 EDT [...] Data Source CT ABD/PEL NO CONTRAST - [id number] 03/19/2021 12:00:00 AM EDT eC W1 ([facility]) Name Value Range Interpretation Code Description Data Arabella rce(s) Supporting Document(s) CT ABD/PEL NO CONTRAST - [id number] eCW1 ([facility]) ID Date Data Source [id number] 03/10/2021 05:49:00 PM EDT MEDENT ([facility] Name Value Range Interpretation Code Description Data Arabella rce(s) Supporting Document(s) Ferritin [Mass/volume] in Serum or Plasma 7 MEDENT ([facility]) ID Date Data Source [id number] 03/10/2021 05:49:00 PM EDT [facility] ([facility]) Name Value Range Interpretation Code Description Data Arabella rce(s) Supporting Document(s) Iron 38 MEDENT ([facility]) Iron binding capacity [Mass/volume] in Serum or Plasma 429 MED[facility] ([facility]) Tibc % Saturation 9 MEDENT ([facility]) ID Date Data Source [id number] 03/10/2021 05:49:00 PM EDT MED[facility] ([facility]) Name Value Range Interpretation Code Description Data Arabella rce(s) Supporting Document(s) CPK-MB 1.3 [facility]) Thyroid Stimulating Hormone 27.184 0.360-3.740 [facility] ([facility]) Free T4 0.4 [facility] ([facility] ID Date Data Source [id number] 03/10/2021 05:49:00 PM EDT MEDENT ([facility]) Name Value Range Interpretation Code Description Data Arabella rce(s) Supporting Document(s) White Blood Count 6.9 MED[facility] ([facility]) Red Blood Count 4.05 [facility] ([facility]) Hematocrit 33.2 MED[facility] ([facility]) Hemoglobin 10.4 [facility] ([facility]) Platelets 360 [facility] ([facility] ID Date Data Source [id number] 03/10/2021 05:49:00 PM EDT [facility] ([facility]) Name Value Range Interpretation Code Description Data Arabella rce(s) Supporting Document(s) Troponin Laboratory test result 0-60.4 ME DENT ([facility]) ID Date Data Source [id number] 03/10/2021 05:49:00 PM EDT MEDENT ([facility]) Name Value Range Interpretation Code Description Data Arabella rce(s) Supporting Document(s) Alanine aminotransferase [Enzymatic activity/volume] in Serum or Pl asma 20 MEDENT ([facility]) Albumin [Mass/volume] in Serum or Plasma 3.5 [facility] ([facility]) Calcium [Mass/volume] in Serum or Plasma 8.7 MED[facility] ([facility]) Carbon dioxide, total [Moles/volume] in Serum or Plasma 27 MED[facility] ([facility]) Chloride [Moles/volume] in Serum or Plasma 104 [facility] ([facility]) Potassium [Moles/volume] in Serum or Plasma 4.2 MED[facility] ([facility]) Protein [Mass/volume] in Serum or Plasma 7.8 [facility] ([facility]) Alkaline phosphatase [Enzymatic activity/volume] in Serum or Plasma 8 0 MED[facility] ([facility]) Sodium 138 [facility] ([facility]) Aspartate aminotransferase [Enzymatic activity/volume] in Serum or Plasma 15 MED[facility] ([facility]) Urea nitrogen [Mass/volume] in Serum or Plasma 11 [facility] ([facility]) Creatinine For GFR 0.85 [facility] ([facility]) Glucose 89 MEDENT ([facility]) ID Date Data Source [id number] 03/10/2021 04:36:00 PM EDT [facility] [...] rce(s) Supporting Document(s) ID Date Data Source [id number] 03/10/2021 04:50:00 PM EDT [facility] Name Value Range Interpretation Code Description Data Arabella rce(s) Supporting Document(s) FERRITIN 7 ng/mL 8-252 L [facility] ID Date Data Source [id number] 03/10/2021 04:50:00 PM EDT [facility] Name Value Range Interpretation Code Description Data Arabella rce(s) Supporting Document(s) IRON 38 ug/dL 50-170 L [facility] TIBC 429 ug/dL 250-450 [facility] % SATURATION 9 % 20-50 L [facility] ID Date Data Source [id number] 03/10/2021 04:50:00 PM EDT [facility] Name Value Range Interpretation Code Description Data Arabella rce(s) Supporting Document(s) TROPONIN-HIGH SENSITIVITY < 4.0 ng/L 0-60.4 [facility] ID Date Data Source [id number] 03/10/2021 04:50:00 PM EDT [facility] l Name Value Range Interpretation Code Description Data Arabella rce(s) Supporting Document(s) CKMB 1.3 ng/ml 0.0-3.6 [facility] ID Date Data Source [id number] 03/10/2021 04:50:00 PM EDT [facility] l Name Value Range Interpretation Code Description Data Arabella rce(s) Supporting Document(s) GLUCOSE 89 mg/dL 74-106 [facility] BLOOD UREA NITROGEN 11 mg/dL 7-18 [facility] ital CREATININE 0.85 mg/dL 0.6-1.0 [facility] SODIUM 138 mmol/L 136-145 [facility] POTASSIUM 4.2 mmol/L 3.5-5.1 [facility] CHLORIDE 104 mmol/L 98-107 [facility] CO2 27 mmol/L 21-32 [facility] CALCIUM 8.7 mg/dL 8.5-10.1 [facility] ANION GAP 7.0 mmol/L 5-12 [facility] GLOMERULAR FILTRATION RATE 75 mL/min [facility] GFR IS CALCULATED IN mL/min/1.73m2 JUDITH L FUNCTION: >90MILDLY DECREASED: 60-89MILDY TO MODERATELY DECREASED: 45-59 MODERATELY TO SEVERELY DECREASED: 30-44SEVERELY DECREASED: 15-29RENAL FAILURE: <15 AST 15 U/L 15-37 [facility] ALT 20 U/L 12-78 [facility] ALKALINE PHOSPHATASE 80 U/L 46-116 [facility] TOTAL BILIRUBIN 0.5 mg/dL 0.2-1.0 [facility] TOTAL PROTEIN 7.8 g/dl 6.4-8.2 [facility] ALBUMIN 3.5 gm/dL 3.4-5.0 [facility] ID Date Data Source [id number] 03/10/2021 04:50:00 PM EDT [facility] l Name Value Range Interpretation Code Description Data Arabella rce(s) Supporting Document(s) FREE T4 0.4 ng/dL 0.76-1.46 L [facility] ID Date Data Source [id number] 03/10/2021 04:50:00 PM EDT [facility] l Name Value Range Interpretation Code Description Data Arabella rce(s) Supporting Document(s) TSH 27.184 uIU/mL 0.360-3.740 H [facility] ID Date Data Source [id number] 03/10/2021 04:22:00 PM EDT [facility] l Name Value Range Interpretation Code Description Data Arabella rce(s) Supporting Document(s) WHITE BLOOD COUNT 6.9 K/mm3 4.0-10.0 [facility] al RED BLOOD COUNT 4.05 M/mm3 4.00-5.50 [facility] HEMOGLOBIN 10.4 gm/dL 12.0-16.0 L [facility] HEMATOCRIT 33.2 % 36.0-48.8 L [facility] MEAN CELL VOLUME 82.0 fl 80-96 [facility] MEAN CORPUSCULAR HEMOGLOBIN 25.7 pg 27.0-31.[address] [facility] MEAN CORPUSCULAR HGB CONC 31.3 g/dl 32.0-36.0 L [facility] RED CELL DISTRIBUTION WIDTH 16.2 % 10.0-14.[address] [facility] PLATELET COUNT 360 K/mm3 172-450 [facility] MEAN PLATELET VOLUME 10.3 fl 9.0-13.0 [facility] pital GRAN % 55.3 % 50-80.0 [facility] IG% 0.1 % 0.0-0.2 [facility] LYMPH % 34.2 % 25.0-50.0 [facility] MONO % 7.6 % 2.0-10.0 [facility] EOS % 2.2 % 0-5.0 [facility] BASO % 0.6 % 0.0-2.0 [facility] GRAN # 3.8 K/mm3 2.0-8.00 [facility] IG# 0.0 K/mm3 0.0-0.2 [facility] LYMPH # 2.4 K/mm3 1.0-5.0 [facility] MONO # 0.5 K/mm3 0.10-1.20 [facility] EOS # 0.2 K/mm3 0.0-0.5 [facility] BASO # 0.0 K/mm3 0.0-0.2 [facility] ID Date Data Source [id number] 03/10/2021 04:59:00 PM EDT [facility] FAX [phone] Name Value Range Interpretation Code Description Data Arabella rce(s) Supporting Document(s) LITHIUM < 0.20 mmol/L 0.6-1.20 [facility] ID Date Data Source FERRITIN 03/10/2021 12:00:00 AM EDT eCW1 ([facility]) Name Value Range Interpretation Code Description Data Arabella rce(s) Supporting Document(s) 7 8-252 FERRITIN eCW1 ([facility]) ID Date Data Source IRON PROFILE 03/10/2021 12:00:00 AM EDT eCW1 ([facility]) Name Value Range Interpretation Code Description Data Arabella rce(s) Supporting Document(s) 429 250-450 TIBC eCW1 ([facility]) 38 50-170 IRON eCW1 ([facility]) 9 20-50 % SATURATION eCW1 ([facility]) ID Date Data Source CBC W/DIFF 03/10/2021 12:00:00 AM EDT eCW1 ([facility]) Name Value Range Interpretation Code Description Data Arabella rce(s) Supporting Document(s) 10.4 12.0-16.0 HEMOGLOBIN eCW1 ([facility]) 4.05 4.00-5.50 RED BLOOD COUNT eCW1 ([facility]) 6.9 4.0-10.0 WHITE BLOOD COUNT eCW1 ([facility]) 25.7 27.0-31.0 MEAN CORPUSCULAR HEMOGLOB IN eCW1 ([facility]) 82.0 80-96 MEAN CELL VOLUME eCW1 ([facility]) 33.2 36.0-48.8 HEMATOCRIT eCW1 ([facility]) 31.3 32.0-36.0 MEAN CORPUSCULAR HGB CONC eCW1 ([facility]) 16.2 10.0-14.5 RED CELL DISTRIBUTION WID TH eCW1 ([facility]) 360 172-450 PLATELET COUNT eCW1 ([facility]) 34.2 25.0-50.0 LYMPH % eCW1 ([facility]) 7.6 2.0-10.0 MONO % eCW1 ([facility]) 10.3 9.0-13.0 MEAN PLATELET VOLUME eCW1 ([facility]) 55.3 50-80.0 GRAN % eCW1 ([facility]) 0.6 0.0-2.0 BASO % eCW1 ([facility]) 3.8 2.0-8.00 GRAN # eCW1 ([facility]) 2.2 0-5.0 EOS % eCW1 ([facility]) 0.2 0.0-0.5 EOS # eCW1 ([facility]) 2.4 1.0-5.0 LYMPH # eCW1 ([facility]) 0.5 0.10-1.20 MONO # eCW1 ([facility]) 0.0 0.0-0.2 BASO # eCW1 ([facility]) ID Date Data Source CHEST 2 VIEWS 03/10/2021 12:00:00 AM EDT eCW1 ([facility]) Name Value Range Interpretation Code Description Data Arabella rce(s) Supporting Document(s) CHEST 2 VIEWS eCW1 ([facility]) ID Date Data Source FREE T4 03/10/2021 12:00:00 AM EDT eCW1 ([facility]) Name Value Range Interpretation Code Description Data Arabella rce(s) Supporting Document(s) 0.4 0.76-1.46 FREE T4 eCW1 ([facility]) ID Date Data Source TSH 03/10/2021 12:00:00 AM EDT eCW1 ([facility]) Name Value Range Interpretation Code Description Data Arabella rce(s) Supporting Document(s) 27.184 0.360-3.740 TSH eCW1 ([facility]note 2[facility] ID Date Data Source CKMB 03/10/2021 12:00:00 AM EDT eCW1 ([facility]) Name Value Range Interpretation Code Description Data Arabella rce(s) Supporting Document(s) 1.3 0.0-3.6 CK eCW1 ([facility]) ID Date Data Source [id number] 01/30/2021 08:06:00 AM EDT [facility] Name Value Range Interpretation Code Description Data Arabella rce(s) Supporting Document(s) Folate (Folic Acid), Serum 8.6 ng/mL >3.0 [facility] A serum folate concentration of less simi n 3.1 ng/mL isconsidered to represent clinical deficiency. ID Date Data Source [id number] 01/30/2021 08:06:00 AM EDT [facility] Name Value Range Interpretation Code Description Data Arabella rce(s) Supporting Document(s) Vitamin B12 351 pg/mL [id number] [facility] ID Date Data Source [id number] 01/30/2021 08:06:00 AM EDT [facility] Name Value Range Interpretation Code Description Data Arabella rce(s) Supporting Document(s) FOLATE (FOLIC ACID), SERUM 8.6 ng/mL >3.0 [facility] A serum folate concentration of less simi n 3.1 ng/mL isconsidered to represent clinical deficiency. ID Date Data Source [id number] 01/30/2021 08:06:00 AM EDT [facility] l Name Value Range Interpretation Code Description Data Arabella rce(s) Supporting Document(s) VITAMIN B12 351 pg/mL [id number] [facility] Performed at: RN - [facility] [address] [id number] Director: Sharmaine Siddiqui MD, Phone: [phone] ID Date Data Source [id number] 01/29/2021 03:33:00 PM EDT [facility] Name Value Range Interpretation Code Description Data Arabella rce(s) Supporting Document(s) IRON 31 ug/dL 50-170 L [facility] TIBC 462 ug/dL 250-450 H [facility] % SATURATION 7 % 20-50 L [facility] ID Date Data Source [id number] 01/15/2021 01:59:00 PM EDT [facility] l DATE OF EXAMINATION: 01/15/2021 11:42 EDT [...] rce(s) Supporting Document(s) ID Date Data Source [id number] 01/15/2021 12:37:00 PM EDT [facility] DATE OF EXAMINATION: 01/15/2021 11:42 EDT HISTORY: [...] rce(s) Supporting Document(s) ID Date Data Source [id number] 01/15/2021 11:52:00 AM EDT [facility] Name Value Range Interpretation Code Description Data Arabella rce(s) Supporting Document(s) WHITE BLOOD COUNT 6.3 K/mm3 4.0-10.0 [facility] RED BLOOD COUNT 3.71 M/mm3 4.00-5.50 L [facility] HEMOGLOBIN 9.7 gm/dL 12.0-16.0 L [facility] HEMATOCRIT 30.5 % 36.0-48.8 L [facility] MEAN CELL VOLUME 82.2 fl 80-96 [facility] MEAN CORPUSCULAR HEMOGLOBIN 26.1 pg 27.0-31.[address] [facility] MEAN CORPUSCULAR HGB CONC 31.8 g/dl 32.0-36.0 L [facility] RED CELL DISTRIBUTION WIDTH 13.7 % 10.0-14.5 [facility] PLATELET COUNT 255 K/mm3 172-450 [facility] MEAN PLATELET VOLUME 10.9 fl 9.0-13.0 [facility] pital GRAN % 53.2 % 50-80.0 [facility] IG% 0.0 % 0.0-0.2 [facility] LYMPH % 35.0 % 25.0-50.0 [facility] MONO % 9.1 % 2.0-10.0 [facility] EOS % 2.1 % 0-5.0 [facility] BASO % 0.6 % 0.0-2.0 [facility] GRAN # 3.4 K/mm3 2.0-8.00 [facility] IG# 0.0 K/mm3 0.0-0.2 [facility] LYMPH # 2.2 K/mm3 1.0-5.0 [facility] MONO # 0.6 K/mm3 0.10-1.20 [facility] EOS # 0.1 K/mm3 0.0-0.5 [facility] BASO # 0.0 K/mm3 0.0-0.2 [facility] ID Date Data Source [id number] 01/15/2021 12:35:00 PM EDT [facility] l Name Value Range Interpretation Code Description Data Arabella rce(s) Supporting Document(s) ERYTHROCYTE SEDIMENTATION RATE 70 mm/hr 0-20 H [facility] ID Date Data Source [id number] 01/15/2021 12:10:00 PM EDT [facility] l Name Value Range Interpretation Code Description Data Arabella rce(s) Supporting Document(s) FREE T4 0.5 ng/dL 0.76-1.46 L [facility] ID Date Data Source [id number] 01/15/2021 12:10:00 PM EDT [facility] l Name Value Range Interpretation Code Description Data Arabella rce(s) Supporting Document(s) TSH 19.669 uIU/mL 0.360-3.740 H [facility] ID Date Data Source [id number] 01/15/2021 11:59:00 AM EDT [facility] l Name Value Range Interpretation Code Description Data Arabella rce(s) Supporting Document(s) GLUCOSE 72 mg/dL 74-106 L [facility] BLOOD UREA NITROGEN 14 mg/dL 7-18 [facility] ital CREATININE 0.83 mg/dL 0.6-1.0 [facility] SODIUM 138 mmol/L 136-145 [facility] POTASSIUM 4.5 mmol/L 3.5-5.1 [facility] CHLORIDE 104 mmol/L 98-107 [facility] CO2 27 mmol/L 21-32 [facility] CALCIUM 8.8 mg/dL 8.5-10.1 [facility] ANION GAP 7.0 mmol/L 5-12 [facility] GLOMERULAR FILTRATION RATE 77 mL/min [facility] GFR IS CALCULATED IN mL/min/1.73m2 JUDITH L FUNCTION: >90MILDLY DECREASED: 60-89MILDY TO MODERATELY DECREASED: 45-59 MODERATELY TO SEVERELY DECREASED: 30-44SEVERELY DECREASED: 15-29RENAL FAILURE: <15 AST 16 U/L 15-37 [facility] ALT 23 U/L 12-78 [facility] ALKALINE PHOSPHATASE 76 U/L 46-116 [facility] pital TOTAL BILIRUBIN 0.5 mg/dL 0.2-1.0 [facility] TOTAL PROTEIN 6.9 g/dl 6.4-8.2 [facility] ALBUMIN 3.5 gm/dL 3.4-5.0 [facility] ID Date Data Source Urinalysis, Routine 01/15/2021 12:00:00 AM EDT eCW1 ([facility]) Name Value Range Interpretation Code Description [facility]s) Color of Urine Ellen Urine-Color eCW1 ([facility]) Microscopic Examination eCW1 ( [facility]) Specific gravity of Urine 1.025 Specific G ravity eCW1 ([facility]) Appearance of Urine Clear Appearance eCW1 ([facility]) pH of Urine by Test strip 5 pH eCW1 ([facility]) Glucose [Presence] in Urine NEG Glucose eCW1 ([facility]) Protein [Presence] in Urine by Test strip NEG Protein eCW1 ([facility]) Bilirubin.total [Presence] in Urine by Test strip NEG Bilirubin eCW1 ([facility]) Hemoglobin [Presence] in Urine by Test strip NEG Occult Blood eCW1 ([facility]) Nitrite [Presence] in Urine by Test strip NEG Nitrite, Urine eCW1 ([facility]) Urobilinogen [Mass/volume] in Urine by Test strip NEG Urobilinogen,Semi-Qn eCW1 ([facility]) Ketones [Presence] in Urine by Test strip NEG Ketones eCW1 ([facility]) Urinalysis Gross Exam eCW1 ([facility]) Leukocyte esterase [Presence] in Urine by Test strip NEG WBC Esterase eCW1 ([facility]) Procedure Social History Code Duration Value Status Description Data Source(s ) Smoking 05/05/2021 12:00:00 AM EDT Current Smoker completed Curre nt Smoker eCW1 ([facility]) Smoking 05/05/2021 12:00:00 AM EDT Current Smoker completed Curre nt Smoker eCW1 ([facility]) Smoking 05/05/2021 12:00:00 AM EDT Current Smoker completed Curre nt Smoker eCW1 ([facility]) Smoking 05/05/2021 12:00:00 AM EDT Current Smoker completed Curre nt Smoker eCW1 ([facility]) Smoking 05/05/2021 12:00:00 AM EDT Current Smoker completed Curre nt Smoker eCW1 ([facility]) Alcohol intake 05/02/2021 12:00:00 AM EDT Ex-drinker (finding) comp leted Ex- drinker (finding) [facility] Tobacco use and exposure 05/02/2021 12:00:00 AM EDT Never used co mpleted Never used [facility] Smoking 05/02/2021 12:00:00 AM EDT Former smoker completed Former smoker [facility] Alcohol intake 04/25/2021 12:00:00 AM EDT Ex-drinker (finding) comp leted Ex- drinker (finding) [facility] Smoking 03/10/2021 12:00:00 AM EDT Current Smoker completed Curre nt Smoker eCW1 ([facility]) Smoking 03/10/2021 12:00:00 AM EDT Current Smoker completed Curre nt Smoker eCW1 ([facility]) Smoking 03/10/2021 12:00:00 AM EDT Current Smoker completed Curre nt Smoker eCW1 ([facility]) Smoking 03/10/2021 12:00:00 AM EDT Current Smoker completed Curre nt Smoker eCW1 ([facility]) Smoking 03/10/2021 12:00:00 AM EDT Current Smoker completed Curre nt Smoker eCW1 ([facility]) Smoking 03/10/2021 12:00:00 AM EDT Current Smoker completed Curre nt Smoker eCW1 ([facility]) Smoking 02/21/2021 12:00:00 AM EDT Current Smoker completed Curre nt Smoker eCW1 ([facility]) Smoking 02/13/2021 12:00:00 AM EDT Current Smoker completed Curre nt Smoker eCW1 ([facility]) Smoking 01/31/2021 12:00:00 AM EDT Current Smoker completed Curre nt Smoker eCW1 ([facility]) Smoking 01/29/2021 12:00:00 AM EDT Current Smoker completed Curre nt Smoker eCW1 ([facility]) Smoking 01/29/2021 12:00:00 AM EDT Current Smoker completed Curre nt Smoker eCW1 ([facility]) Smoking 01/29/2021 12:00:00 AM EDT Current Smoker completed Curre nt Smoker eCW1 ([facility]) Smoking 01/15/2021 12:00:00 AM EDT Current Smoker completed Curre nt Smoker eCW1 ([facility]) Smoking 01/15/2021 12:00:00 AM EDT Current Smoker completed Curre nt Smoker eCW1 ([facility]) Smoking 01/15/2021 12:00:00 AM EDT Current Smoker completed Curre nt Smoker eCW1 ([facility]) Smoking 01/15/2021 12:00:00 AM EDT Current Smoker completed Curre nt Smoker eCW1 ([facility]) Smoking 01/15/2021 12:00:00 AM EDT Current Smoker completed Curre nt Smoker eCW1 ([facility]) 03/20/2021 12:00:00 AM EDT Smoker completed Smoker [facility] 03/20/2021 12:00:00 AM EDT Current smoker completed Curre nt smoker [facility] Vital Signs ID Date Data Source UNK Name Value Range Interpretation Code Description Data Source(s) Body temperature 36.22 Jayde 36.22 Jayde [facility] Respiratory rate 18 /min 18 /min [facility] Oxygen saturation in Arterial blood by Pulse oximetry 99 % 99 % [facility] Systolic blood pressure 107 mm[Hg] 107 mm[Hg] [facility] Diastolic blood pressure 63 mm[Hg] 63 mm[Hg] [facility] Heart rate 50 /min 50 /min [facility] Body height 174 cm 174 cm [facility] Body mass index (BMI) [Ratio] 25.47 kg/m2 25.47 kg/m2 [facility] Body weight 77.111 kg 77.111 kg [facility] Systolic blood pressure 104 mm[Hg] 104 mm[Hg] [facility] Diastolic blood pressure 70 mm[Hg] 70 mm[Hg] [facility] Heart rate 46 /min 46 /min [facility] Body temperature 36.17 Jayde 36.17 Jayde [facility] Respiratory rate 16 /min 16 /min [facility] Oxygen saturation in Arterial blood by Pulse oximetry 99 % 99 % [facility] Body height 172 cm 172 cm [facility] Body weight 80.287 kg 80.287 kg [facility] Body mass index (BMI) [Ratio] 27.14 kg/m2 27.14 kg/m2 [facility] Systolic blood pressure 92 mm[Hg] 92 mm[Hg] [facility] Diastolic blood pressure 59 mm[Hg] 59 mm[Hg] [facility] Heart rate 64 /min 64 /min [facility] Respiratory rate 16 /min 16 /min [facility] Oxygen saturation in Arterial blood by Pulse oximetry 97 % 97 % [facility] Body temperature 36.78 Jayde 36.78 Jayde [facility] Body height 172 cm 172 cm [facility] Body weight 82 kg 82 kg [facility] Body mass index (BMI) [Ratio] 27.72 kg/m2 27.72 kg/m2 [facility] Diastolic blood pressure 59 mm[Hg] 59 mm[Hg] DAVID ([facility]) Body height 69 [in_i] 69 [in_i] DAVID ([facility]) Body mass index (BMI) [Ratio] 26.5 kg/m2 26.5 k g/m2 DAVID ([facility]) Systolic blood pressure 97 mm[Hg] 97 mm[Hg] A THENA ([facility]) Body weight 179.2 [lb_av] 179.2 [lb_av] DAVID ([facility]) Diastolic blood pressure 59 mm[Hg] 59 mm[Hg] DAVID ([facility]) Body height 69 [in_i] 69 [in_i] DAVID ([facility]) Body mass index (BMI) [Ratio] 26.5 kg/m2 26.5 k g/m2 DAVID ([facility]) Systolic blood pressure 97 mm[Hg] 97 mm[Hg] A THENA ([facility]) Body weight 179.2 [lb_av] 179.2 [lb_av] DAVID ([facility]) Body height 68 [in_i] 68 [in_i] eCW1 ([facility]) Body weight 179.6 [lb_av] 179.6 [lb_av] eCW1 ([facility]) Body mass index (BMI) [Ratio] 27.31 kg/m2 27.31 kg/m2 eCW1 ([facility]) Body temperature 98.8 [degF] 98.8 [degF] eCW1 ( [facility]) Heart rate 86 /min 86 /min eCW1 ([facility]) Respiratory rate 18 /min 18 /min eCW1 ([facility]) Oxygen saturation in Arterial blood by Pulse oximetry 100 % 100 % eCW1 ([facility]) Body height 68 [in_i] 68 [in_i] eCW1 ([facility]) Body weight 180.6 [lb_av] 180.6 [lb_av] eCW1 ([facility]) Body mass index (BMI) [Ratio] 27.46 kg/m2 27.46 kg/m2 eCW1 ([facility]) Body temperature 98.2 [degF] 98.2 [degF] eCW1 ( [facility]) Heart rate 92 /min 92 /min eCW1 ([facility]) Respiratory rate 18 /min 18 /min eCW1 ([facility]) Oxygen saturation in Arterial blood by Pulse oximetry 100 % 100 % eCW1 ([facility]) Body height 68 [in_i] 68 [in_i] eCW1 ([facility]) Body weight 182.4 [lb_av] 182.4 [lb_av] eCW1 ([facility]) Body mass index (BMI) [Ratio] 27.73 kg/m2 27.73 kg/m2 eCW1 ([facility]) Body temperature 98.4 [degF] 98.4 [degF] eCW1 ( [facility]) Heart rate 78 /min 78 /min eCW1 ([facility]) Respiratory rate 18 /min 18 /min eCW1 ([facility]) Oxygen saturation in Arterial blood by Pulse oximetry 98 % 98 % eCW1 ([facility]) ID Date Data Source [id number] 03/22/2021 08:28:35 PM T [facility] Name Value Range Interpretation Code Description Data Source(s) TRANSFER FROM [facility] Patient Treatment Plan of Care Planned Activity Planned Date Details Description Data Source (s) Docusate Sodium 100 MG 06/24/2021 12:00:00 AM EST [facility] ([facility]) oxyCODONE-Acetaminophen 5-325 MG 06/23/2021 12:00:00 [facility] Acetaminophen Extra Strength 500 MG 06/23/2021 12:00:00 AM EST [facility] ([facility]) Venlafaxine HCl ER 150 MG 06/23/2021 12:00:00 AM EST [facility] ([facility]) TiZANidine HCl 4 MG 06/23/2021 12:00:00 AM EST [facility] ([facility]) Carafate 1 GM 06/23/2021 12:00:00 AM EST [facility] ([facility]) Prazosin HCl 1 MG 06/23/2021 12:00:00 AM EST [facility] ([facility]) Rexulti 1 MG 06/23/2021 12:00:00 AM EST N [facility] ([facility]) Protonix 40 MG 06/23/2021 12:00:00 AM EST [facility] ([facility]) Multivitamin Adults 06/23/2021 12:00:00 AM EST [facility] ([facility]) Mirtazapine 15 MG 06/23/2021 12:00:00 AM EST [facility] ([facility]) Melatonin 10 MG 06/23/2021 12:00:00 AM EST [facility] ([facility]) Levothyroxine Sodium 125 MCG 06/23/2021 12:00:00 AM EST [facility] ([facility]) lamoTRIgine 25 MG 06/23/2021 12:00:00 AM EST [facility] ([facility]) lamotrigine 25 MG Oral Tablet 05/21/2021 12:00:00 AM EDT eCW1 ([facility]) lamotrigine 25 MG Oral Tablet 05/21/2021 12:00:00 AM EDT eCW1 ([facility]) Acetaminophen 325 MG / Hydrocodone Bitartrate 7.5 MG O ral Tablet 05/04/2021 12:00:00 AM EDT [facility] Misoprostol 0.2 MG Oral Tablet 05/04/2021 12:00:00 AM EDT [facility] Methylcellulose 500 MG Oral Tablet 03/27/2021 12:00:00 AM EDT [facility] Lactobacillus rhamnosus GG [id number] UNT Oral Capsul e 03/27/2021 12:00:00 AM EDT [facility] brexpiprazole 2 MG Oral Tablet [Rexulti] 03/19/2021 12:00:00 AM EDT eCW1 ([facility]) brexpiprazole 2 MG Oral Tablet [Rexulti] 03/19/2021 12:00:00 AM EDT eCW1 ([facility]) brexpiprazole 2 MG Oral Tablet [Rexulti] 03/19/2021 12:00:00 AM EDT eCW1 ([facility]) brexpiprazole 2 MG Oral Tablet [Rexulti] 03/19/2021 12:00:00 AM EDT eCW1 ([facility]) brexpiprazole 2 MG Oral Tablet [Rexulti] 03/19/2021 12:00:00 AM EDT eCW1 ([facility]) brexpiprazole 1 MG Oral Tablet [Rexulti] 03/19/2021 12:00:00 AM EDT eCW1 ([facility]) brexpiprazole 1 MG Oral Tablet [Rexulti] 03/19/2021 12:00:00 AM EDT eCW1 ([facility]) brexpiprazole 1 MG Oral Tablet [Rexulti] 03/19/2021 12:00:00 AM EDT eCW1 ([facility]) brexpiprazole 1 MG Oral Tablet [Rexulti] 03/19/2021 12:00:00 AM EDT eCW1 ([facility]) Prazosin 1 MG Oral Capsule 02/13/2021 12:00:00 AM EDT eCW1 ([facility]) Prazosin 1 MG Oral Capsule 02/13/2021 12:00:00 AM EDT eCW1 ([facility]) [place] Carbonate 300 MG Oral Capsule 02/13/2021 12:00:00 AM EDT eCW1 ([facility]) Prazosin 1 MG Oral Capsule 02/13/2021 12:00:00 AM EDT eCW1 ([facility]) Levothyroxine Sodium 0.025 MG Oral Tablet 01/29/2021 12:00:00 AM ED T eCW1 ([facility]) 0.3 ML Epinephrine 1 MG/ML Auto-Injector [Epipen] 01/29/2021 12: 00:00 AM EDT eCW1 ([facility]) Levothyroxine Sodium 0.025 MG Oral Tablet 01/29/2021 12:00:00 AM ED T eCW1 ([facility]) 0.3 ML Epinephrine 1 MG/ML Auto-Injector [Epipen] 01/29/2021 12: 00:00 AM EDT eCW1 ([facility]) Levothyroxine Sodium 0.025 MG Oral Tablet 01/29/2021 12:00:00 AM ED T eCW1 ([facility]) 0.3 ML Epinephrine 1 MG/ML Auto-Injector [Epipen] 01/29/2021 12: 00:00 AM EDT eCW1 ([facility]) Misoprostol 0.2 MG Oral Tablet 08/04/2019 12:00:00 AM [facility] ferrous sulfate 325 MG Oral Tablet [facility] gabapentin 600 MG Oral Tablet [facility] quetiapine 25 MG Oral Tablet [Seroquel] DAVID ([facility]) Mirtazapine 15 MG Oral Tablet [Remeron] DAVID ([facility]) OneTouch Delica Lancets ATHE NA ([facility]) One Touch II Test strips ATH TENZIN ([facility]) [place] Carbonate 300 MG Oral Capsule DAVID ([facility]) Hair, Skin and Nails Advanced DAVID ([facility]) Biotin 10 MG Oral Tablet ATH TENZIN ([facility]) quetiapine 25 MG Oral Tablet [Seroquel] DAVID ([facility]) Mirtazapine 15 MG Oral Tablet [Remeron] DAVID ([facility]) OneTouch Delica Lancets ATHE NA ([facility]) One Touch II Test strips ATH TENZIN ([facility]) [place] Carbonate 300 MG Oral Capsule DAVID ([facility]) Hair, Skin and Nails Advanced DAVID ([facility]) Biotin 10 MG Oral Tablet ATH TENZIN ([facility])
--- OUTSIDE RECORDS SUMMARY | 2021-07-01 00:38 | CCD | Continuity of Care Document ---
Author Author Ada Wade [employer] Organization Unknown Address Unknown Phone Unavailable Care Team Providers [employer] Finisher Name Role Phone Jose Angel Fleming Unavailable Sebastian Lowry Unavailable [facility] Unavailable -[phone] Unavailable Unavailable Arlene Pastor Unavailable Unavailable Justine [...] Start : 23-Jun-2021 Active Melatonin 10 MG take two capsules every evening at bedtime Jose Angel Fleming* Start : 23-Jun-2021 Active [...] (7-10)Max daily dose 4 tabs Jose Angel Flmeing* Start : 23-Jun-2021 Active Allergies and Adverse [...] Type: Nutrition education Payers * Medicare - [facility]
--- OUTSIDE RECORDS SUMMARY | 2021-07-01 00:45 | CCD ---
Author Author [facility] Organization [facility] Address Unknown Phone Unavailable Care Team Providers Care Surety Bond Agent Name Role Phone Pam Baires Unavailable Pam [...] Nell Cortes MD Unavailable Unavailable Essence, A aRshawn FAIR Unavailable Unavailable Essence, A Rashawn FAIR [...] Unavailable GOMEZ, L DENNISE PA Unavailable Unavailable GOMZE, L DENNISE PA Unavailable Unavailable GOMEZ, L DENNISE PA Unavailable Unavailable GOMEZ, L DENNISE PA Unavailable Unavailable GOMEZ, L DENNISE PA Unavailable Unavailable GOMEZ, L DENNISE PA Unavailable Unavailable GOMEZ, L DENNISE PA Unavailable Unavailable GOMEZ, L DENNISE PA Unavailable Unavailable GOMEZ, L DNENISE PA Unavailable Unavailable GOMEZ, L DENNISE PA [...] Unavailable PATI, CAMILA DO Unavailable Unavailable PATI, CMAILA DO Unavailable Unavailable PATI, CAMILA DO Unavailable [...] EDIS FABIEN RPA-C Unavailable Unavailable MORAES, EDIS FABINE RPA-C Unavailable Unavailable MORAES, EDIS FABIEN RPA-C [...] is protected by Article 27-F of the [facility] Public Health law. If you continue you may have access to information: Regarding HIV / AIDS; Provided by facilities licensed or operated by the [facility] Office of Mental Health; or Provided by the [facility] Office for People With Developmental Disabilities. If such information is present, then the following [facility] mandated warning applies: This information has [...] law may result in a fine or fci sentence or both. A general authorization for the release of medical or other information is NOT sufficient authorization for further disc losure. Allergies and Adverse Reactions Type Description Substance Reaction Status Data Source(s ) Seasonale () (Levonorgestrel-ethinyl Estrad) Seasona le () (Levonorgestrel- ethinyl Estrad) Seasonale () (Levonorgestrel-ethinyl Estrad) a ctive NETSMART ([facility]) bee venom (honey bee) bee venom (honey bee) bee venom (honey bee) active NETSMART ([facility]) Maxalt (rizatriptan) Maxalt (rizatriptan) Maxalt (rizatriptan) active NETSMART ([facility]) amitriptyline amitriptyline amitriptyline active NETSM ART ([facility]) Propensity to adverse reactions NO ALLERGIES ON FILE NO ALLERGIES ON FILE [facility] Propensity to adverse reactions LEVONORGESTREL-ETHINYL ESTRA D LEVONORGESTREL- ETHINYL ESTRAD Unknown [facility] Propensity to adverse reactions BEE VENOM PROTEIN (HONEY BEE) Ho huseyin bee venom Other Unknown [facility] Propensity to adverse reactions RIZATRIPTAN rizatriptan Swelling High [facility] Propensity to adverse reactions AMITRIPTYLINE Amitriptyline Swelling High [facility] Allergy to substance Severe Amitriptyline Hallucinations DAVID ([facility]) Allergy to substance Severe Amitriptyline Hallucinations DAVID ([facility]) Family History Family Member Name Family Member Gender Family Member Status Date o f Status Description Data Source(s) Unknown Female Condition Family Member Diabetes B on [facility] Unknown Female Condition Family Member Cancer B on [facility] Unknown Female Condition Family Member Hypertension Bon [facility] Encounters Encounter Providers Location Date Indications Data Source(s ) 06/23/2021 12:00:00 AM EST - 021 03:17:14 PM EST NETSMART ([facility]) INPATIENT Attender: BILL GARNICA MD 5F-OR 06/13/2021 10:36:35 AM EDT [facility] INPATIENT Attender: Rashawn Lowry MDAdmitter: Rashawn summers MD 5F-1E 06/12/2021 01:00:00 AM EDT - 06/18/2021 05:03:00 PM EST [facility] Patient discharged. Outpatient Attender: GWEN CHIN 06/04/2021 10:00: 00 AM T [facility] Outpatient Attender: Ragini Watts 06/04/2021 09:01:00 AM EDT [facility] Outpatient [facility] 05/27/2021 12:00:00 AM EDT eCW1 ([facility]) Outpatient [facility] 05/27/2021 12:00:00 AM EDT eCW1 ([facility]) Outpatient Attender: GWEN CHIN 05/21/2021 10:00: 00 AM EDT [facility] Outpatient Attender: Ragini Watts 05/20/2021 01:00:00 PM EDT [facility] Outpatient [facility] 05/16/2021 12:00:00 AM EDT eCW1 ([facility]) Outpatient Attender: GWEN CHIN 05/05/2021 02:00: 00 PM EDT [facility] Outpatient [facility] 05/05/2021 12:00:00 AM EDT eCW1 ([facility]) Outpatient [facility] 05/05/2021 12:00:00 AM EDT eCW1 ([facility]) INPATIENT Attender: Jonn Conrad MDAtten leo: CAMILA PATI DOAttender: SANDEEP BAZAN MDAdmitter: SANDEEP BAZAN MDConsultant: Kashif Aguilar JrConsultant: Rashawn Lowry MD 5F-1E 05/01/2021 10:26:00 PM EDT - 05/04/2021 04:32:00 PM EDT [facility] Patient discharged. INPATIENT Attender: JEFE HEIN MDAtten leo: Jonn Conrad MDAttender: Cari De oSuza MDAttender: CARI DE SOUZA MDAdmitter: Jonn Conrad MDConsultant: Rashawn Lowry MDConsultant: ANAYELI BADILLO IIConsultant: ANAYELI BADILLO II MDConsultant: Kevin Cervantes 5F-1E 04/25/2021 12:14:00 PM EDT - 04/28/2021 06:00:00 PM EDT [facility] Patient discharged. Emergency Attender: MADIHA CISNEROSeferrer: Ventura Gomez PA-C EMERGENCY ROOM-ER 04/24/2021 11:49:00 PM EDT - 04/25/2021 09:55:00 AM EDT [facility] Patient discharged. Outpatient Attender: ASHOK DEAL 04/20/2021 04:35:45 PM EDT [facility] Outpatient [facility] 04/15/2021 12:00:00 AM EDT eCW1 ([facility]) Emergency Attender: Harley AGUILARCReferrer: Scott Gomez PA-C EMERGENCY ROOM-ER 04/12/2021 09:19:00 PM EDT - 04/13/2021 01:29:00 AM EDT [facility] Patient discharged. Outpatient Attender: Harley AGUILARCConsultant: [facility] [id number] 04/12/2021 09:06:00 PM EDT [facility] Att[facility]: [facility] 04/09/2021 10:00: 00 AM EDT [facility] David Willard MD: [id number] [address], [place] [address], Ph. Attender: David PORTER - [facility] - Main Office 04/07/2021 12:00:00 AM EDT DAVID ([facility]) David Willard MD: [id number] [address], [place] [address], Ph. [phone] Attender: David Willard MD CT - [facility] - Main Office 04/02/2021 12:00:00 AM EDT DAVID ([facility]) Outpatient [facility] 03/28/2021 12:00:00 AM EDT eCW1 ([facility]) Outpatient [facility] 03/28/2021 12:00:00 AM EDT eCW ([facility]) INPATIENT Attender: FREDERICK GOODWIN MD 5F-GX 03/26/2021 05:43:40 PM EDT [facility] INPATIENT Attender: BRAYAN ALLISON MD 5F-GX 03/25/2021 09:53:3 9 AM EDT [facility] INPATIENT Attender: CARI DE SOUZA MDA ttender: Cari De Souza MDAttender: WINSTON QUIROGA MDAttender: Jonn Conrad MDAttender: MARTIN SIBLEY MDAttender: Martin Sibley MDAdmitter: Jonn Conrad MDConsultant: Rashawn Lowry MDConsultant: Kevin Cervantes 5F-1E 03/23/2021 03:25:00 PM E DT - 03/27/2021 04:11:00 PM EDT [facility] Patient discharged. Outpatient [id number] 03/22/2021 08:11:00 PM EDT [facility] Emergency Attender: WILLIE DIAZ PAReferrer: Scott Gomez PA-C EMERGENCY ROOM-ER 03/22/2021 03:34:00 PM EDT - 03/23/2021 12:40:00 PM EDT [facility] Patient discharged. Outpatient Attender: GWEN JEAN FPMHRUTH 03/19/2021 09:49: 00 AM EDT [facility] Outpatient Attender: Abida AGUILARCReferrer: Abida Gomez PA-C 03/19/2021 08:00:00 AM EDT [facility] David Willard MD: [id number], [address], [place] [address], Ph. Attender: David PORTER - [facility] - Main Office 03/18/2021 12:00:00 AM EDT DAVID ([facility]) David Willard MD: [id number], [address], [place] [address], Ph. Attender: David Willard MD CT - [facility] - Main Office 03/18/2021 12:00:00 AM EDT DAVID ([facility]) Preadmit Attender: Abida Gomez PA-C 03/14/2021 08:00 :00 AM EDT [facility] Outpatient [facility] 03/12/2021 12:00:00 AM EDT eCW1 ([facility]) Outpatient [facility] 03/11/2021 12:00:00 AM EDT eCW1 ([facility]) Outpatient Attender: GWEN CHINReferrer: Ventura Gomez PA-C EMERGENCY ROOM-LAB 03/10/2021 03:46:00 PM EDT - 03/10/2021 03:46:00 PM EDT [facility] Outpatient Attender: Abida Sherwoodferrer: Abida Gomez PA-C EMERGENCY ROOM-RIVI 03/10/2021 02:37:00 PM EDT - 03/10/2021 02:37:00 PM EDT [facility] Outpatient [facility] 03/10/2021 12:00:00 AM EDT eCW1 ([facility]) Outpatient [facility] 03/03/2021 12:00:00 AM EDT eCW1 ([facility]) Outpatient Attender: GWEN CHIN 02/13/2021 01:00: 00 PM EDT [facility] Outpatient [facility] 02/11/2021 12:00:00 AM EDT eCW1 ([facility]) Outpatient [facility] 02/04/2021 12:00:00 AM EDT eCW1 ([facility]) Outpatient Attender: JUVE FOOTE PA-C 01/31/2021 11:00:00 AM EDT [facility] Outpatient [facility] 01/30/2021 12:00:00 AM EDT eCW1 ([facility]) Outpatient [facility] 01/30/2021 12:00:00 AM EDT eCW1 ([facility]) Outpatient Attender: Pam Daniels: FABIEN SONI RPA-C EMERGENCY ROOM-[facility] 01/29/2021 01:00:00 PM EDT - 01/29/2021 01:00:00 PM EDT [facility] Outpatient Attender: Ragini Watts 01/29/2021 10:00:00 AM EDT [facility] Outpatient [facility] 01/29/2021 12:00:00 AM EDT eCW1 ([facility]) Outpatient [facility] 01/22/2021 12:00:00 AM EDT eCW1 ([facility]) Outpatient [facility] 01/21/2021 12:00:00 AM EDT eCW1 ([facility]) Outpatient [facility] 01/16/2021 12:00:00 AM EDT eCW1 ([facility]) Outpatient Attender: Pam Daniels: FABIEN SONI RPA-C EMERGENCY ROOM-[facility] 01/15/2021 08:03:00 AM EDT - 01/15/2021 08:03:00 AM EDT [facility] Outpatient [facility] 01/15/2021 12:00:00 AM EDT eCW1 ([facility]) Outpatient [facility] 01/15/2021 12:00:00 AM EDT eCW1 ([facility]) Emergency Attender: WILLIE Lozada: FABINE HEATR EMERGENCY ROOM-ER 06/04/2019 12:15:00 PM EDT - 06/04/2019 03:18:00 PM EDT [facility] Patient discharged. Emergency Attender: DENNISE Lozada: [facility] EMERGENCY ROOM-ER 05/10/2019 06:22:00 AM EDT - 05/10/2019 11:00:00 AM [facility] Patient discharged. Emergency Attender: MADIHA MANUEL EMERGENCY ROOM-ER 01/17/2018 12:13:00 AM EDT - 01/17/2018 02:40:00 AM [facility] Emergency Attender: MADIHA MANUEL EMERGENCY ROOM-ER 11/22/2017 09:40:00 PM EDT - 11/23/2017 02:25:00 AM [facility] Emergency Attender: WILLIE MANUEL EMERGENCY ROOM-ER 11/07 02:49:00 PM EDT - 11/19/2017 05:38:00 PM [facility] Emergency Attender: DENNISE MANUEL EMERGENCY ROOM-ER 08:49:00 PM EST - 09/30/2017 12:27:00 AM [facility] Outpatient Attender: FABIEN HEART EMERGENCY ROOM-LAB 0 08/25/2017 04:16:00 PM EST - 08/25/2017 04:16:00 PM [facility] Emergency Attender: OSKAR MANUEL EMERGENCY ROOM- ER 04/13/2017 09:15:00 PM EDT - 04/14/2017 01:54:00 AM [facility] Emergency Attender: DENNISE MANUEL EMERGENCY ROOM-ER 09:02:00 PM EDT - 03/21/2017 01:55:00 AM [facility] Emergency Attender: MADIHA MANUEL EMERGENCY ROOM-ER 12/30/2016 09:12:00 PM EDT - 12/31/2016 01:50:00 AM [facility] Medications Medication Brand Name Start Date Product Form Dose Route Admi nistrative Instructions Pharmacy Instructions Status Indications Reaction Description Data Source(s) Docusate Sodium 100 MG Docusate Sodium 06/24/2021 12:00:00 AM EST completed NETSMART ([facility]) Carafate 1 GM Carafate 06/23/2021 12:00:00 AM EST completed NETSMART ([facility]) TiZANidine HCl 4 MG TiZANidine HCl 06/23/2021 12:00:00 AM EST completed NETSMART ([facility]) Venlafaxine HCl ER 150 MG Venlafaxine HCl ER 06/23/2021 12:00:00 AM EST completed NETSMART ([facility]) Acetaminophen Extra Strength 500 MG Acetaminophen Extra Stre ngth 06/23/2021 12:00:00 AM EST 2.0 {tablet} completed NETSMART ([facility]) Rexulti 1 MG Rexulti 06/23/2021 12:00:00 AM EST 2.0 {mg} completed NETSMART ([facility] ) Prazosin HCl 1 MG Prazosin HCl 06/23/2021 12:00:00 AM EST 2.0 {m g} completed NETSMART ([facility]) oxyCODONE-Acetaminophen 5-325 MG oxyCODONE-Acetaminophen 12:00:00 AM EST 1.0 {tablet} completed N ETSMART ([facility]) lamoTRIgine 25 MG lamoTRIgine 06/23/2021 12:00:00 AM EST 50.0 {m g} completed NETSMART ([facility]) Protonix 40 MG Protonix 06/23/2021 12:00:00 AM EST completed NETSMART ([facility]) Levothyroxine Sodium 125 MCG Levothyroxine Sodium 06/23/2021 12:00: 00 AM EST completed NETSMART ([facility]) Melatonin 10 MG Melatonin 06/23/2021 12:00:00 AM EST 20.0 {mg} completed NETSMART ([facility]) Mirtazapine 15 MG Mirtazapine 06/23/2021 12:00:00 AM EST completed NETSMART ([facility]) Multivitamin Adults Multivitamin Adults 06/23/2021 12:00:00 AM EST completed NETSMART ([facility]) lamotrigine 25 MG Oral Tablet lamoTRIgine 25 MG lamoTRIgine 25 MG 05/21/2021 12:00:00 AM EDT 1.0 {tablet} active la moTRIgine 25 MG eCW1 ([facility]) lamotrigine 25 MG Oral Tablet lamoTRIgine 25 MG lamoTRIgine 25 MG 05/21/2021 12:00:00 AM EDT 1.0 {tablet} active la moTRIgine 25 MG eCW1 ([facility]) Acetaminophen 325 MG / Hydrocodone Nury trate 7.5 MG Oral Tablet HYDROcodone- acetaminophen (NORCO) 7.5-325 mg per tablet HYDROcodone-acetaminophen (NORCO) 7.5-325 mg per tablet 05/04/2021 12:00:00 AM EDT 1 {tbl} oral active Take 1 tablet by mouth every 6 (six) hours if needed for moderate pain or severe pain for up to 3 doses. [facility] Misoprostol 0.2 MG Oral Tablet miSOPROStoL (CYTOTEC) 2 00 mcg tablet miSOPROStoL (CYTOTEC) 200 mcg tablet 05/04/2021 12:00:00 AM EDT 200 ug oral active Take 1 tablet (200 mcg total) by mouth 4 (four) times a day. [facility] Methylcellulose 500 MG Oral Tablet methy lcellulose, laxative, (CITRUCEL) 500 mg tablet methylcellulose, laxative, (CITRUCEL) 500 mg tablet 12:00:00 AM EDT 1000 mg oral aborted Take 2 t ablets (1,000 mg total) by mouth 2 (two) times a day. [facility] Lactobacillus rhamnosus GG [id number] U NT Oral Capsule lactobacillus rhamnosus (PROBIOTIC EXTRA STRENGTH) 20 billion cell capsule lactobacillus rhamnosus (PROBIOTIC EXTRA STRENGTH) 20 billion cell capsule 03/27/2021 12:00:00 AM EDT 1 {capsule} oral aborted Take 1 capsule by [facility] 1 (one) time each day. [facility] brexpiprazole 2 MG Oral Tablet [Rexulti] Rexulti 2 MG Rexult i 2 MG 03/19/2021 12:00:00 AM EDT 1.0 {tablet} active Re xulti 2 MG eCW1 ([facility]) brexpiprazole 1 MG Oral Tablet [Rexulti] Rexulti 1 MG Rexult i 1 MG 03/19/2021 12:00:00 AM EDT 1.0 {tablet} active Re xulti 1 MG eCW1 ([facility]) brexpiprazole 1 MG Oral Tablet [Rexulti] Rexulti 1 MG Rexult i 1 MG 03/19/2021 12:00:00 AM EDT 1.0 {tablet} active Re xulti 1 MG eCW1 ([facility]) brexpiprazole 2 MG Oral Tablet [Rexulti] Rexulti 2 MG Rexult i 2 MG 03/19/2021 12:00:00 AM EDT 1.0 {tablet} active Re xulti 2 MG eCW1 ([facility]) brexpiprazole 1 MG Oral Tablet [Rexulti] Rexulti 1 MG Rexult i 1 MG 03/19/2021 12:00:00 AM EDT 1.0 {tablet} active Re xulti 1 MG eCW1 ([facility]) brexpiprazole 2 MG Oral Tablet [Rexulti] Rexulti 2 MG Rexult i 2 MG 03/19/2021 12:00:00 AM EDT 1.0 {tablet} active Re xulti 2 MG eCW1 ([facility]) brexpiprazole 1 MG Oral Tablet [Rexulti] Rexulti 1 MG Rexult i 1 MG 03/19/2021 12:00:00 AM EDT 1.0 {tablet} active Re xulti 1 MG eCW1 ([facility]) brexpiprazole 2 MG Oral Tablet [Rexulti] Rexulti 2 MG Rexult i 2 MG 03/19/2021 12:00:00 AM EDT 1.0 {tablet} active Re xulti 2 MG eCW1 ([facility]) brexpiprazole 2 MG Oral Tablet [Rexulti] Rexulti 2 MG Rexult i 2 MG 03/19/2021 12:00:00 AM EDT 1.0 {tablet} active Re xulti 2 MG eCW1 ([facility]) brexpiprazole 1 MG Oral Tablet [Rexulti] Rexulti 1 MG Rexult i 1 MG 03/19/2021 12:00:00 AM EDT 1.0 {tablet} active Re xulti 1 MG eCW1 ([facility]) [place] Carbonate 300 MG Oral Capsule [place] Carbonate 300 MG 02/13/2021 12:00:00 AM EDT 1.0 {capsule} suspended [place] Carbonate 300 MG eCW1 ([facility]) [place] Carbonate 300 MG Oral Capsule [place] Carbonate 300 MG 02/13/2021 12:00:00 AM EDT 1.0 {capsule} suspended [place] Carbonate 300 MG eCW1 ([facility]) Prazosin 1 MG Oral Capsule Prazosin HCl 1 MG Prazosin HCl 1 MG 02/13/2021 12:00:00 AM EDT 1.0 {capsule_at_bedtime} active Prazosin HCl 1 MG eCW1 ([facility]) [place] Carbonate 300 MG Oral Capsule [place] Carbonate 300 MG 02/13/2021 12:00:00 AM EDT 1.0 {capsule} active L ithium Carbonate 300 MG eCW1 ([facility]) [place] Carbonate 300 MG Oral Capsule [place] Carbonate 300 MG 02/13/2021 12:00:00 AM EDT 1.0 {capsule} suspended [place] Carbonate 300 MG eCW1 ([facility]) Prazosin 1 MG Oral Capsule Prazosin HCl 1 MG Prazosin HCl 1 MG 02/13/2021 12:00:00 AM EDT 1.0 {capsule_at_bedtime} active Prazosin HCl 1 MG eCW1 ([facility]) [place] Carbonate 300 MG Oral Capsule [place] Carbonate 300 MG 02/13/2021 12:00:00 AM EDT 1.0 {capsule} suspended [place] Carbonate 300 MG eCW1 ([facility]) Prazosin 1 MG Oral Capsule Prazosin HCl 1 MG Prazosin HCl 1 MG 02/13/2021 12:00:00 AM EDT 1.0 {capsule_at_bedtime} active Prazosin HCl 1 MG eCW1 ([facility]) Prazosin 1 MG Oral Capsule Prazosin HCl 1 MG Prazosin HCl 1 MG 02/13/2021 12:00:00 AM EDT 1.0 {capsule_at_bedtime} active Prazosin HCl 1 MG eCW1 ([facility]) Prazosin 1 MG Oral Capsule Prazosin HCl 1 MG Prazosin HCl 1 MG 02/13/2021 12:00:00 AM EDT 1.0 {capsule_at_bedtime} active Prazosin HCl 1 MG eCW1 ([facility]) Prazosin 1 MG Oral Capsule Prazosin HCl 1 MG Prazosin HCl 1 MG 02/13/2021 12:00:00 AM EDT 1.0 {capsule_at_bedtime} active Prazosin HCl 1 MG eCW1 ([facility]) [place] Carbonate 300 MG Oral Capsule [place] Carbonate 300 MG 02/13/2021 12:00:00 AM EDT 1.0 {capsule} suspended [place] Carbonate 300 MG eCW1 ([facility]) [place] Carbonate 300 MG Oral Capsule [place] Carbonate 300 MG 02/13/2021 12:00:00 AM EDT 1.0 {capsule} suspended [place] Carbonate 300 MG eCW1 ([facility]) Prazosin 1 MG Oral Capsule Prazosin HCl 1 MG Prazosin HCl 1 MG 02/13/2021 12:00:00 AM EDT 1.0 {capsule_at_bedtime} active Prazosin HCl 1 MG eCW1 ([facility]) [place] Carbonate 300 MG Oral Capsule [place] Carbonate 300 MG 02/13/2021 12:00:00 AM EDT 1.0 {capsule} suspended [place] Carbonate 300 MG eCW1 ([facility]) Prazosin 1 MG Oral Capsule Prazosin HCl 1 MG Prazosin HCl 1 MG 02/13/2021 12:00:00 AM EDT 1.0 {capsule_at_bedtime} active Prazosin HCl 1 MG eCW1 ([facility]) [place] Carbonate 300 MG Oral Capsule [place] Carbonate 300 MG 02/13/2021 12:00:00 AM EDT 1.0 {capsule} suspended [place] Carbonate 300 MG eCW1 ([facility]) [place] Carbonate 300 MG Oral Capsule [place] Carbonate 300 MG 02/13/2021 12:00:00 AM EDT 1.0 {capsule} active L ithium Carbonate 300 MG eCW1 ([facility]) Prazosin 1 MG Oral Capsule Prazosin HCl 1 MG Prazosin HCl 1 MG 02/13/2021 12:00:00 AM EDT 1.0 {capsule_at_bedtime} active Prazosin HCl 1 MG eCW1 ([facility]) [place] Carbonate 300 MG Oral Capsule [place] Carbonate 300 MG 02/13/2021 12:00:00 AM EDT 1.0 {capsule} suspended [place] Carbonate 300 MG eCW1 ([facility]) Prazosin 1 MG Oral Capsule Prazosin HCl 1 MG Prazosin HCl 1 MG 02/13/2021 12:00:00 AM EDT 1.0 {capsule_at_bedtime} active Prazosin HCl 1 MG eCW1 ([facility]) Prazosin 1 MG Oral Capsule Prazosin HCl 1 MG Prazosin HCl 1 MG 02/13/2021 12:00:00 AM EDT 1.0 {capsule_at_bedtime} active Prazosin HCl 1 MG eCW1 ([facility]) Prazosin 1 MG Oral Capsule Prazosin HCl 1 MG Prazosin HCl 1 MG 02/13/2021 12:00:00 AM EDT 1.0 {capsule_at_bedtime} active Prazosin HCl 1 MG eCW1 ([facility]) [place] Carbonate 300 MG Oral Capsule [place] Carbonate 300 MG 02/13/2021 12:00:00 AM EDT 1.0 {capsule} suspended [place] Carbonate 300 MG eCW1 ([facility]) Prazosin 1 MG Oral Capsule Prazosin HCl 1 MG Prazosin HCl 1 MG 02/13/2021 12:00:00 AM EDT 1.0 {capsule_at_bedtime} active Prazosin HCl 1 MG eCW1 ([facility]) [place] Carbonate 300 MG Oral Capsule [place] Carbonate 300 MG 02/13/2021 12:00:00 AM EDT 1.0 {capsule} suspended [place] Carbonate 300 MG eCW1 ([facility]) 0.3 ML Epinephrine 1 MG/ML Auto-Injector [Epipen] EpiP en 2-Jacquelyn 0.3 MG/0.3ML EpiPen 2-Jacquelyn 0.3 MG/0.3ML 01/29/2021 12:00:00 AM EDT active EpiPen 2-Jacquelyn 0.3 MG/0.3ML eCW1 ([facility]) Levothyroxine Sodium 0.05 MG Oral Tablet Levothyroxine Sodium 50 MCG Levothyroxine Sodium 50 MCG 01/29/2021 12:00:00 AM EDT active Levothyroxine Sodium 50 MCG eCW1 ([facility] [place]) Levothyroxine Sodium 0.025 MG Oral Tablet Levothyroxin e Sodium 25 MCG Levothyroxine Sodium 25 MCG 01/29/2021 12:00:00 AM EDT active Levothyroxine Sodium 25 MCG eCW1 ([facility] [place]) 0.3 ML Epinephrine 1 MG/ML Auto-Injector [Epipen] EpiP en 2-Jacquelyn 0.3 MG/0.3ML EpiPen 2-Jacquelyn 0.3 MG/0.3ML 01/29/2021 12:00:00 AM EDT active EpiPen 2-Jacquelyn 0.3 MG/0.3ML eCW1 ([facility]) 0.3 ML Epinephrine 1 MG/ML Auto-Injector [Epipen] EpiP en 2-Jacquelyn 0.3 MG/0.3ML EpiPen 2-Jacquelyn 0.3 MG/0.3ML 01/29/2021 12:00:00 AM EDT active EpiPen 2-Jacquelyn 0.3 MG/0.3ML eCW1 ([facility]) 0.3 ML Epinephrine 1 MG/ML Auto-Injector [Epipen] EpiP en 2-Jacquelyn 0.3 MG/0.3ML EpiPen 2-Jacquelyn 0.3 MG/0.3ML 01/29/2021 12:00:00 AM EDT active EpiPen 2-Jacquelyn 0.3 MG/0.3ML eCW1 ([facility]) 0.3 ML Epinephrine 1 MG/ML Auto-Injector [Epipen] EpiP en 2-Jacquelyn 0.3 MG/0.3ML EpiPen 2-Jacquelyn 0.3 MG/0.3ML 01/29/2021 12:00:00 AM EDT active EpiPen 2-Jacquelyn 0.3 MG/0.3ML eCW1 ([facility]) 0.3 ML Epinephrine 1 MG/ML Auto-Injector [Epipen] EpiP en 2-Jacquelyn 0.3 MG/0.3ML EpiPen 2-Jacquelyn 0.3 MG/0.3ML 01/29/2021 12:00:00 AM EDT active EpiPen 2-Jacquelyn 0.3 MG/0.3ML eCW1 ([facility]) 0.3 ML Epinephrine 1 MG/ML Auto-Injector [Epipen] EpiP en 2-Jacquelyn 0.3 MG/0.3ML EpiPen 2-Jacquelyn 0.3 MG/0.3ML 01/29/2021 12:00:00 AM EDT active EpiPen 2-Jacquelyn 0.3 MG/0.3ML eCW1 ([facility]) 0.3 ML Epinephrine 1 MG/ML Auto-Injector [Epipen] EpiP en 2-Jacquelyn 0.3 MG/0.3ML EpiPen 2-Jacquelyn 0.3 MG/0.3ML 01/29/2021 12:00:00 AM EDT active EpiPen 2-Jacquelyn 0.3 MG/0.3ML eCW1 ([facility]) 0.3 ML Epinephrine 1 MG/ML Auto-Injector [Epipen] EpiP en 2-Jacquelyn 0.3 MG/0.3ML EpiPen 2-Jacquelyn 0.3 MG/0.3ML 01/29/2021 12:00:00 AM EDT active EpiPen 2-Jacquelyn 0.3 MG/0.3ML eCW1 ([facility]) 0.3 ML Epinephrine 1 MG/ML Auto-Injector [Epipen] EpiP en 2-Jacquelyn 0.3 MG/0.3ML EpiPen 2-Jacquelyn 0.3 MG/0.3ML 01/29/2021 12:00:00 AM EDT active EpiPen 2-Jacquelyn 0.3 MG/0.3ML eCW1 ([facility]) Levothyroxine Sodium 0.05 MG Oral Tablet Levothyroxine Sodium 50 MCG Levothyroxine Sodium 50 MCG 01/29/2021 12:00:00 AM EDT active Levothyroxine Sodium 50 MCG eCW1 ([facility]) Levothyroxine Sodium 0.025 MG Oral Tablet Levothyroxin e Sodium 25 MCG Levothyroxine Sodium 25 MCG 01/29/2021 12:00:00 AM EDT active Levothyroxine Sodium 25 MCG eCW1 ([facility]) 0.3 ML Epinephrine 1 MG/ML Auto-Injector [Epipen] EpiP en 2-Jacquelyn 0.3 MG/0.3ML EpiPen 2-Jacquelyn 0.3 MG/0.3ML 01/29/2021 12:00:00 AM EDT active EpiPen 2-Jacquelyn 0.3 MG/0.3ML eCW1 ([facility] [place]) Levothyroxine Sodium 0.025 MG Oral Tablet Levothyroxin e Sodium 25 MCG Levothyroxine Sodium 25 MCG 01/29/2021 12:00:00 AM EDT active Levothyroxine Sodium 25 MCG eCW1 ([facility] [place]) 0.3 ML Epinephrine 1 MG/ML Auto-Injector [Epipen] EpiP en 2-Jacquelyn 0.3 MG/0.3ML EpiPen 2-Jacquelyn 0.3 MG/0.3ML 01/29/2021 12:00:00 AM EDT active EpiPen 2-Jacquelyn 0.3 MG/0.3ML eCW1 ([facility] [place]) Levothyroxine Sodium 0.05 MG Oral Tablet Levothyroxine Sodium 50 MCG Levothyroxine Sodium 50 MCG 01/29/2021 12:00:00 AM EDT active Levothyroxine Sodium 50 MCG eCW1 ([facility] [place]) Levothyroxine Sodium 0.05 MG Oral Tablet Levothyroxine Sodium 50 MCG Levothyroxine Sodium 50 MCG 01/29/2021 12:00:00 AM EDT active Levothyroxine Sodium 50 MCG eCW1 ([facility] [place]) Levothyroxine Sodium 0.05 MG Oral Tablet Levothyroxine Sodium 50 MCG Levothyroxine Sodium 50 MCG 01/29/2021 12:00:00 AM EDT active Levothyroxine Sodium 50 MCG eCW1 ([facility] [place]) Levothyroxine Sodium 0.025 MG Oral Tablet Levothyroxin e Sodium 25 MCG Levothyroxine Sodium 25 MCG 01/29/2021 12:00:00 AM EDT active Levothyroxine Sodium 25 MCG eCW1 ([facility] [place]) 0.3 ML Epinephrine 1 MG/ML Auto-Injector [Epipen] EpiP en 2-Jacquelyn 0.3 MG/0.3ML EpiPen 2-Jacquelyn 0.3 MG/0.3ML 01/29/2021 12:00:00 AM EDT active EpiPen 2-Jacquelyn 0.3 MG/0.3ML eCW1 ([facility] [place]) 0.3 ML Epinephrine 1 MG/ML Auto-Injector [Epipen] EpiP en 2-Jacquelyn 0.3 MG/0.3ML EpiPen 2-Jacquelyn 0.3 MG/0.3ML 01/29/2021 12:00:00 AM EDT active EpiPen 2-Jacquelyn 0.3 MG/0.3ML eCW1 ([facility]) Levothyroxine Sodium 0.025 MG Oral Tablet Levothyroxin e Sodium 25 MCG Levothyroxine Sodium 25 MCG 01/29/2021 12:00:00 AM EDT active Levothyroxine Sodium 25 MCG eCW1 ([facility]) 0.3 ML Epinephrine 1 MG/ML Auto-Injector [Epipen] EpiP en 2-Jacquelyn 0.3 MG/0.3ML EpiPen 2-Jacquelyn 0.3 MG/0.3ML 01/29/2021 12:00:00 AM EDT active EpiPen 2-Jacquelyn 0.3 MG/0.3ML eCW1 ([facility]) Levothyroxine Sodium 0.025 MG Oral Tablet Levothyroxin e Sodium 25 MCG Levothyroxine Sodium 25 MCG 01/29/2021 12:00:00 AM EDT active Levothyroxine Sodium 25 MCG eCW1 ([facility]) Levothyroxine Sodium 0.025 MG Oral Tablet Levothyroxin e Sodium 25 MCG Levothyroxine Sodium 25 MCG 01/29/2021 12:00:00 AM EDT active Levothyroxine Sodium 25 MCG eCW1 ([facility]) 0.3 ML Epinephrine 1 MG/ML Auto-Injector [Epipen] EpiP en 2-Jacquelyn 0.3 MG/0.3ML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 ON THERAPY</td><td>Ro utine</td><td>05/03/2021 4:00 AM EDT</td><td></td><td> </td> 05/03/2021 04:00:00 AM EDT [facility] BLOOD COUNT COMPLETE AUTO&AUTO DIFRNTL WBC COUNT <td>H C CBC W/ DIFFERENTIAL</td><td>Routine</td><td>05/03/2021 4:00 AM EDT</td><td></td><td> </td> 05/03/2021 04:00:00 AM EDT [facility] BASIC METABOLIC PANEL CALCIUM TOTAL <td>BASIC METABOLI C PANEL</td><td>Routine</td><td>05/03/2021 4:00 AM EDT</td><td></td><td> </td> 05/03/2021 04:00:00 AM EDT [facility] BLOOD COUNT HEMOGLOBIN <td>HEMOGLOBIN</td><td>Timed </td><td>05/02/2021 11:59 PM EDT</td><td></td><td> </td> 05/02/2021 11:59:00 PM EDT [facility] BLOOD COUNT HEMATOCRIT <td>HEMATOCRIT</td><td>Timed </td><td>05/02/2021 11:59 PM EDT</td><td></td><td> </td> 05/02/2021 11:59:00 PM EDT [facility] BLOOD COUNT HEMOGLOBIN <td>HEMOGLOBIN</td><td>Timed </td><td>05/02/2021 7:00 PM EDT</td><td></td><td> </td> 05/02/2021 07:00:00 PM EDT [facility] BLOOD COUNT HEMATOCRIT <td>HEMATOCRIT</td><td>Timed </td><td>05/02/2021 7:00 PM EDT</td><td></td><td> </td> 05/02/2021 07:00:00 PM EDT [facility] TRANSFUSE RED BLOOD CELLS <td>TRANSFUSE RED BLOOD CELLS</td><td>Routine</td><td>05/02/2021 2:51 PM EDT</td><td></td><td></td> 05/02/2021 02:51:44 PM EDT [facility] CYANOCOBALAMIN VITAMIN B-12 <td>VITAMIN B12 AND FOLATE</td><td>Routine</td><td>05/02/2021 11:52 AM EDT</td><td></td><td> </td> 05/02/2021 11:52:00 AM EDT [facility] IRON <td>IRON AND TIBC</td><td>Ro utine</td><td>05/02/2021 11:52 AM EDT</td><td></td><td> </td> 05/02/2021 11:52:00 AM EDT [facility] BLOOD COUNT COMPLETE AUTOMATED <td>CBC</td><td>STAT</t d><td>05/02/2021 11:52 AM EDT</td><td></td><td> </td> 05/02/2021 11:52:00 AM EDT [facility] BLOOD COUNT HEMOGLOBIN <td>HEMOGLOBIN</td><td>Timed </td><td>05/02/2021 11:52 AM EDT</td><td></td><td> </td> 05/02/2021 11:52:00 AM EDT [facility] BLOOD COUNT HEMATOCRIT <td>HEMATOCRIT</td><td>Timed </td><td>05/02/2021 11:52 AM EDT</td><td></td><td> </td> 05/02/2021 11:52:00 AM EDT [facility] FERRITIN <td>FERRITIN</td><td>Routine </td><td>05/02/2021 11:52 AM EDT</td><td></td><td> </td> 05/02/2021 11:52:00 AM EDT [facility] BLOOD TYPING ABO <td>PREPARE RBC</td><td>Rout ine</td><td>05/02/2021 9:31 AM EDT</td><td></td><td> </td> 05/02/2021 09:31:00 AM EDT [facility] SECOND (2ND) CONFIRMATION TYPE <td>SECOND (2ND) CONFIR MATION TYPE</td><td>Routine</td><td>05/02/2021 4:37 AM EDT</td><td></td><td> </td> 05/02/2021 04:37:00 AM EDT [facility] BLOOD COUNT HEMOGLOBIN <td>HEMOGLOBIN</td><td>Timed </td><td>05/02/2021 4:37 AM EDT</td><td></td><td> </td> 05/02/2021 04:37:00 AM EDT [facility] BLOOD COUNT HEMATOCRIT <td>HEMATOCRIT</td><td>Timed </td><td>05/02/2021 4:37 AM EDT</td><td></td><td> </td> 05/02/2021 04:37:00 AM EDT [facility] BLOOD TYPING ABO <td>TYPE AND SCREEN</td><td> STAT</td><td>05/02/2021 4:37 AM EDT</td><td></td><td> </td> 05/02/2021 04:37:00 AM EDT [facility] COMPREHENSIVE METABOLIC PANEL <td>COMPREHENSIVE METABO LIC PANEL</td><td>Routine</td><td>05/02/2021 4:37 AM EDT</td><td></td><td> </td> 05/02/2021 04:37:00 AM EDT [facility] POCT GLUCOSE METER UNSOLICITED RESULTS <td>POCT GLUCOS E METER UNSOLICITED RESULTS</td><td>Routine</td><td>04/28/2021 12:51 PM EDT</td><td></td><td> </td> 04/28/2021 12:51:00 PM EDT [facility] POCT GLUCOSE METER UNSOLICITED RESULTS <td>POCT GLUCOS E METER UNSOLICITED RESULTS</td><td>Routine</td><td>04/28/2021 5:33 AM EDT</td><td></td><td> </td> 04/28/2021 05:33:00 AM EDT [facility] BLOOD COUNT COMPLETE AUTO&AUTO DIFRNTL WBC COUNT <td>H C CBC W/ DIFFERENTIAL</td><td>Routine</td><td>04/28/2021 4:34 AM EDT</td><td></td><td> </td> 04/28/2021 04:34:00 AM EDT [facility] COMPREHENSIVE METABOLIC PANEL <td>COMPREHENSIVE METABO LIC PANEL</td><td>Routine</td><td>04/28/2021 4:34 AM EDT</td><td></td><td> </td> 04/28/2021 04:34:00 AM EDT [facility] POCT GLUCOSE METER UNSOLICITED RESULTS <td>POCT GLUCOS E METER UNSOLICITED RESULTS</td><td>Routine</td><td>04/28/2021 12:00 AM EDT</td><td></td><td> </td> 04/28/2021 12:00:00 AM EDT [facility] POCT GLUCOSE METER UNSOLICITED RESULTS <td>POCT GLUCOS E METER UNSOLICITED RESULTS</td><td>Routine</td><td>04/27/2021 5:50 PM EDT</td><td></td><td> </td> 04/27/2021 05:50:00 PM EDT [facility] IRON <td>IRON AND TIBC</td><td>Ro utine</td><td>04/27/2021 2:08 PM EDT</td><td></td><td> </td> 04/27/2021 02:08:00 PM EDT [facility] FERRITIN <td>FERRITIN</td><td>Routine </td><td>04/27/2021 2:08 PM EDT</td><td></td><td> </td> 04/27/2021 02:08:00 PM EDT [facility] COMPREHENSIVE METABOLIC PANEL <td>COMPREHENSIVE METABO LIC PANEL</td><td>Routine</td><td>04/27/2021 2:08 PM EDT</td><td></td><td> </td> 04/27/2021 02:08:00 PM EDT [facility] TOXICOLOGY SCREEN, URINE <td>TOXICOLOGY SCREEN, URINE</td><td>Routine</td><td>04/27/2021 12:00 PM EDT</td><td></td><td> </td> 04/27/2021 12:00:00 PM EDT [facility] POCT GLUCOSE METER UNSOLICITED RESULTS <td>POCT GLUCOS E METER UNSOLICITED RESULTS</td><td>Routine</td><td>04/27/2021 11:47 AM EDT</td><td></td><td> </td> 04/27/2021 11:47:00 AM EDT [facility] POCT GLUCOSE METER UNSOLICITED RESULTS <td>POCT GLUCOS E METER UNSOLICITED RESULTS</td><td>Routine</td><td>04/27/2021 5:20 AM EDT</td><td></td><td> </td> 04/27/2021 05:20:00 AM EDT [facility] BLOOD COUNT COMPLETE AUTO&AUTO DIFRNTL WBC COUNT <td>H C CBC W/ DIFFERENTIAL</td><td>Routine</td><td>04/27/2021 4:56 AM EDT</td><td></td><td> </td> 04/27/2021 04:56:00 AM EDT [facility] BASIC METABOLIC PANEL CALCIUM TOTAL <td>BASIC METABOLI C PANEL</td><td>Routine</td><td>04/27/2021 4:56 AM EDT</td><td></td><td> </td> 04/27/2021 04:56:00 AM EDT [facility] POCT GLUCOSE METER UNSOLICITED RESULTS <td>POCT GLUCOS E METER UNSOLICITED RESULTS</td><td>Routine</td><td>04/26/2021 11:48 PM EDT</td><td></td><td> </td> 04/26/2021 11:48:00 PM EDT [facility] POCT GLUCOSE METER UNSOLICITED RESULTS <td>POCT GLUCOS E METER UNSOLICITED RESULTS</td><td>Routine</td><td>04/26/2021 6:48 PM EDT</td><td></td><td> </td> 04/26/2021 06:48:00 PM EDT [facility] POCT GLUCOSE METER UNSOLICITED RESULTS <td>POCT GLUCOS E METER UNSOLICITED RESULTS</td><td>Routine</td><td>04/26/2021 12:04 PM EDT</td><td></td><td> </td> 04/26/2021 12:04:00 PM EDT [facility] POCT GLUCOSE METER UNSOLICITED RESULTS <td>POCT GLUCOS E METER UNSOLICITED RESULTS</td><td>Routine</td><td>04/26/2021 4:57 AM EDT</td><td></td><td> </td> 04/26/2021 04:57:00 AM EDT [facility] BLOOD COUNT COMPLETE AUTO&AUTO DIFRNTL WBC COUNT <td>H C CBC W/ DIFFERENTIAL</td><td>Routine</td><td>04/26/2021 4:36 AM EDT</td><td></td><td> </td> 04/26/2021 04:36:00 AM EDT [facility] MAGNESIUM <td>MAGNESIUM</td><td>Routin e</td><td>04/26/2021 4:36 AM EDT</td><td></td><td> </td> 04/26/2021 04:36:00 AM EDT [facility] COMPREHENSIVE METABOLIC PANEL <td>COMPREHENSIVE METABO LIC PANEL</td><td>Routine</td><td>04/26/2021 4:36 AM EDT</td><td></td><td> </td> 04/26/2021 04:36:00 AM EDT [facility] POCT GLUCOSE METER UNSOLICITED RESULTS <td>POCT GLUCOS E METER UNSOLICITED RESULTS</td><td>Routine</td><td>04/25/2021 11:19 PM EDT</td><td></td><td> </td> 04/25/2021 11:19:00 PM EDT [facility] URNLS DIP STICK/TABLET RGNT AUTO W/O MICROSCOPY <td><c ontent ID="[id number]">URINALYSIS W/MICROSCOPIC & CULTURE IF INDICATED</content></td><td>STAT</td><td>04/25/2021 5:00 PM EDT</td><td></td><td><paragraph styleCode="header">Results for this procedure are in the <content styleCode="[id number]">results section</content>.</paragraph></td> 04/25/2021 05:00:00 PM EDT [facility] PROTHROMBIN TIME <td>PROTHROMBIN TIME NO THER APY OR UNKNOWN</td><td>STAT</td><td>04/25/2021 4:12 PM EDT</td><td></td><td> </td> 04/25/2021 04:12:00 PM EDT [facility] THROMBOPLASTIN TIME PARTIAL PLASMA/WHOLE BLOOD <td>PTT NO THERAPY OR UNKNOWN</td><td>STAT</td><td>04/25/2021 4:12 PM EDT</td><td></td><td> </td> 04/25/2021 04:12:00 PM EDT [facility] BLOOD COUNT COMPLETE AUTO&AUTO DIFRNTL WBC COUNT <td>H C CBC W/ DIFFERENTIAL</td><td>STAT</td><td>04/25/2021 4:12 PM EDT</td><td></td><td> </td> 04/25/2021 04:12:00 PM EDT [facility] TRIIODOTHYRONINE T3 TOTAL TT3 <td>T3</td><td>Routine</ td><td>04/25/2021 4:12 PM EDT</td><td></td><td> </td> 04/25/2021 04:12:00 PM EDT [facility] THYROID STIMULATING HORMONE TSH <td>TSH</td><td>STAT</ td><td>04/25/2021 4:12 PM EDT</td><td></td><td> </td> 04/25/2021 04:12:00 PM EDT [facility] THYROXINE FREE <td>T4, FREE</td><td>Routine </td><td>04/25/2021 4:12 PM EDT</td><td></td><td> </td> 04/25/2021 04:12:00 PM EDT [facility] MAGNESIUM <td>MAGNESIUM</td><td>STAT</ td><td>04/25/2021 4:12 PM EDT</td><td></td><td> </td> 04/25/2021 04:12:00 PM EDT [facility] LIPASE <td>LIPASE</td><td>STAT</td> <td>04/25/2021 4:12 PM EDT</td><td></td><td> </td> 04/25/2021 04:12:00 PM EDT [facility] COMPREHENSIVE METABOLIC PANEL <td>COMPREHENSIVE METABO LIC PANEL</td><td>STAT</td><td>04/25/2021 4:12 PM EDT</td><td></td><td> </td> 04/25/2021 04:12:00 PM EDT [facility] COLONOSCOPY <td>COLONOSCOPY</td><td></td ><td>03/27/2021 10:28 AM EDT</td><td></td><td> </td> 03/27/2021 10:28:41 AM EDT [facility] CUL BACT STOOL AEROBIC ADDL PATHOGENS&ID EA <td>ENTERI C PATHOGENS, PCR (FOR DX INSTEAD OF INITIAL STOOL CULTURE)</td><td>Routine</td><td>03/26/2021 4:15 PM EDT</td><td></td><td> </td> 03/26/2021 04:15:00 PM EDT [facility] BLOOD COUNT COMPLETE AUTOMATED <td>CBC</td><td>Routine </td><td>03/26/2021 4:28 AM EDT</td><td></td><td> </td> 03/26/2021 04:28:00 AM EDT [facility] MAGNESIUM <td>MAGNESIUM</td><td>Routin e</td><td>03/26/2021 4:28 AM EDT</td><td></td><td> </td> 03/26/2021 04:28:00 AM EDT [facility] BASIC METABOLIC PANEL CALCIUM TOTAL <td>BASIC METABOLI C PANEL</td><td>Routine</td><td>03/26/2021 4:28 AM EDT</td><td></td><td> </td> 03/26/2021 04:28:00 AM EDT [facility] UPPER GI ENDOSCOPY <td>UPPER GI ENDOSCOPY</td>< td></td><td>03/25/2021 10:41 AM EDT</td><td></td><td> </td> 03/25/2021 10:41:55 AM EDT [facility] UPPER GI NDSC DX W/WO COLLECTION SPECIMEN <td>EGD (ESOPHAGOGASTRODUODENOSCOPY)</td><td></td><td>03/25/2021 10:06 AM EDT</td><td> GI bleed</td><td></td> 03/25/2021 10:06:00 AM EDT - 03/25/2021 10:37:00 AM ED T [facility] BLOOD COUNT COMPLETE AUTO&AUTO DIFRNTL WBC COUNT <td>H C CBC W/ DIFFERENTIAL</td><td>Routine</td><td>03/25/2021 4:20 AM EDT</td><td></td><td> </td> 03/25/2021 04:20:00 AM EDT [facility] BASIC METABOLIC PANEL CALCIUM TOTAL <td>BASIC METABOLI C PANEL</td><td>Routine</td><td>03/25/2021 4:20 AM EDT</td><td></td><td> </td> 03/25/2021 04:20:00 AM EDT [facility] BLOOD COUNT COMPLETE AUTO&AUTO DIFRNTL WBC COUNT <td>H C CBC W/ DIFFERENTIAL</td><td>Routine</td><td>03/24/2021 4:29 AM EDT</td><td></td><td> </td> 03/24/2021 04:29:00 AM EDT [facility] MAGNESIUM <td>MAGNESIUM</td><td>Routin e</td><td>03/24/2021 4:29 AM EDT</td><td></td><td> </td> 03/24/2021 04:29:00 AM EDT [facility] COMPREHENSIVE METABOLIC PANEL <td>COMPREHENSIVE METABO LIC PANEL</td><td>Routine</td><td>03/24/2021 4:29 AM EDT</td><td></td><td> </td> 03/24/2021 04:29:00 AM EDT [facility] POCT GLUCOSE METER UNSOLICITED RESULTS <td>POCT GLUCOS E METER UNSOLICITED RESULTS</td><td>Routine</td><td>03/23/2021 10:25 PM EDT</td><td></td><td> </td> 03/23/2021 10:25:00 PM EDT [facility] BLOOD COUNT COMPLETE AUTO&AUTO DIFRNTL WBC COUNT <td>H C CBC W/ DIFFERENTIAL</td><td>STAT</td><td>03/23/2021 8:42 PM EDT</td><td></td><td> </td> 03/23/2021 08:42:00 PM EDT [facility] C-REACTIVE PROTEIN <td>C-REACTIVE PROTEIN</td>< td>Routine</td><td>03/23/2021 8:42 PM EDT</td><td></td><td> </td> 03/23/2021 08:42:00 PM EDT [facility] MAGNESIUM <td>MAGNESIUM</td><td>STAT</ td><td>03/23/2021 8:42 PM EDT</td><td></td><td> </td> 03/23/2021 08:42:00 PM EDT [facility] LACTATE <td>LACTIC ACID</td><td>Rout ine</td><td>03/23/2021 8:42 PM EDT</td><td></td><td> </td> 03/23/2021 08:42:00 PM EDT [facility] COMPREHENSIVE METABOLIC PANEL <td>COMPREHENSIVE METABO LIC PANEL</td><td>STAT</td><td>03/23/2021 8:42 PM EDT</td><td></td><td> </td> 03/23/2021 08:42:00 PM EDT [facility] OXYGEN DAILY PROTOCOL <td>OXYGEN DAILY PROTOCOL</td><td>Routine</td><td>03/23/2021 5:48 PM EDT</td><td></td><td></td> 03/23/2021 05:48:21 PM EDT [facility] OXYGEN DAILY PROTOCOL <td>OXYGEN DAILY PROTOCOL</td><td>Routine</td><td>03/23/2021 5:48 PM EDT</td><td></td><td></td> 03/23/2021 05:48:21 PM EDT [facility] MRI, lumbar spine, w/wo contrast 03/18/2021 12:00:00 A M EDT DAVID ([facility]) ECG ROUTINE ECG W/LEAST 12 LDS W/I&R 03/10/2021 12:00: 00 AM EDT [email or web address] ([facility]) Results ID Date Data Source [id number] 06/23/2021 04:24:24 PM EST [facility] Name Value Range Interpretation Code Description Data Arabella rce(s) Supporting Document(s) Discharge Summary [facility] [id number]gFjSvLdGHQ8 lbm [file] CxAhVR7ZHt3SPrD9QOU5dUMaLz5FIjblGQQZCfXcXF1RSSj= ID Date Data Source [id number] 06/20/2021 11:45:58 AM EST [facility] Name Value Range Interpretation Code Description Data Arabella rce(s) Supporting Document(s) Progress Notes [facility] PZOITo9fMwVEGdEm85/YRLpiESRhw2JlPBzpQTa2UGnlHOBkC1QaDQK7zC3gOGV1AVnICtBeXlToNJUb lbm [file] Hy7MKeI8BTRQVtJsYC4OZUw= ID Date Data Source [id number] 06/19/2021 03:46:37 PM EST [facility] Name Value Range Interpretation Code Description Data Arabella rce(s) Supporting Document(s) Progress Notes [facility] MMWDDi2lTqASLcYd08/KNKdwEXCcq5IlFOkpLYh8AJvmRWHmG1TpKVW8cY1gHZB0IRvWVtUyYyPoBACw lbm [file] CYqaSWQmSwTgBP4ACn5LFfW3BPL7iZTaBb9RMtBpFUFNYzOcRA2NNTa= ID Date Data Source [id number] 06/19/2021 02:31:21 PM EST [facility] Name Value Range Interpretation Code Description Data Arabella rce(s) Supporting Document(s) Progress Notes [facility] TUIULk9tZoVTWbRx18/IHDlqLGWbc5BxAYmlQIk1WEkbKQGiP8DpQDE9aZ4pAWI8PUyHUlEjOxInKHXv lbm [file] YtAXHoKv3jAXGJCq4+HIucrMNwtMojQBUTUcK6YLe8XXxpMQPELo0U ID Date Data Source [id number] 06/18/2021 05:42:44 PM EST [facility] Name Value Range Interpretation Code Description Data Arabella rce(s) Supporting Document(s) Nursing Note [facility] ZMJOQf5uTuQNSaEl93/HPJcyJGJsm8XuLDwvNFb3GCbiFRXqH5WfIZY3yT0qRPV3YLeASrEqTxVgTILz lbm QqSnkANsKrRKPtXmaNWrRgAZtqDadurRSgNY1AtJM6TODmH13qRWBhIWZvG7WwYBOeFZN+Bu5CYTGzhX EqAZ4BAutU4Yulg9z4ZB8e2E/dOosxqGcFnuhjQTRcJ6PmVgbL4bGkpkwFt8PyaB9W5j83m4TL1j5Fz+ WcCQM1BObn12k3aTya6VSL/3yFUZYKIaD+4I8hLfMa QNh9ASg6KH8XrmdggWXeAWJvH8GWnaceckzobKmSx6GM6hk6kFePlzFr2NZmmaNMY4wq0v6IddDvoYpH 4HUOp+8EVOmA/GhUj8HHnC1DAyrgDU1+Pn8O+NlDXks6SpWyAcX9cPnLzVyo0X6O6gDrY9sMYdb9naQP NXtQ3W2jkmvHNL2dZDo4nAFZfjubbLCoB/0oNgt3ob TB4EX1SQkRzzbiZgjrpl+3LLHdYHPkEWgBzpkALcWlNAmaUGDvTVSclemE27AeqrCM+8t5hdWrhzBcTf iDvzXi2/q9msTa3jgJiCaF1RQZUCF6RROBRm5dmmmI4MCVNdyxFjv2++HRWFb2QQFc3xk/GG9mkN/dz8 mzA5y6y0qDxPT3m95C/He6ZRyp1F3WEMCPdvnf/oRf xvGZtx50zGKvK9ZoFoDvxQ+/EEJxYv4P+GgQx65Y4gQYfKa1x5SJ+aWfRw8HTZvYhbqgvqhqhSDjeW8S +8402O+ks0BWvBVncXvuOv7XyyjXktEzvXRuNQPc7Cb/YN0H16IC0zuvEo/Me/zyljlz/lwkj5sOsqr8 mLUpGpVFEmccTjGB33cFHGpck5KN1+enwkTaro9vhy mO/cgkJSJD1efEdyuskKLoV8zIRN970bopZn9/oK2Pzx+GxZVQURycyBe0QM3kUuK27Ew/t9FduroF/a kukJXariHfvBPkiliR8O2ftCK/UWG4bXBpJJXYhqbWx7f91wpoQ+tIQvwQaQPE7/6lMfvt/BGoKkPMJe León+nZGMQ6keAebsYFGs2a/AbVZ0WryIb7QyaEPlDa [file] MDAwMDAxOTMwMyAwMDAwMCBuDQowMDAwMDIwNzQxID TjUMDuBR3ZCiUfBRIyMpI1SPOaUFIyVIMeud7ZHPQjMTLnRAa4DnRtTQJwWCAyIFs7ldGruYHsOOt9XE 6ZI2BdpgBjIaOJMu4Ar577FCP6YCMrDh1HN2nqMz2bDMAbEDATSk6EOVd3QWZwBeRdS2HwAiGeT6L6FF ouKoX4HdX0ZoNfEhT6ZAQ+OFncTCRrZVVlXPQ2YHTo ZHtsMTW4ZAVlZXyoZmF4LWGnFS7uVNEGSw4+OXjisRKybYqlPFKUHrDcIxNtZCzcILABPy2H ID Date Data Source [id number] 06/18/2021 03:51:43 PM EST [facility] Name Value Range Interpretation Code Description Data Arabella rce(s) Supporting Document(s) Progress Notes [facility] LTNLQn1aSsNKVnHy99/URCpjBAFwx2ExXFrwSZn1ZHfkRFQuZ9TfOSR2yQ4sCBW6SOrNPbXgOsHvDJKd lbm [file] UcXb9zWMIOOi4+GUkesTJkoJuiVTUKRrF3LFX7LQpvSSVKFv2V ID Date Data Source [id number] 06/18/2021 02:56:01 PM EST [facility] Name Value Range Interpretation Code Description Data Arabella rce(s) Supporting Document(s) Care Plan [facility] MDVAEq9rHgFMYbTt43/RKTzrNGDdr4VlZXkuCRc7SIubQGCfJ7IxDNM6xU6fWDD6YZiMEmFoAoIyMPQm lbm [file] OGUxYWIyYjhhMzljMDE+OK3xQGz+Sh6Bq2AcjpN3uaZsPVtvPNH0NG6QYVWHL7AXCs== ID Date Data Source [id number] 06/18/2021 12:31:07 PM EST [facility] Name Value Range Interpretation Code Description Data Arabella rce(s) Supporting Document(s) Progress Notes [facility] QJZXKu4jSvRUFcOi13/ZFEnbZNHul8VkKWtlQVg0BAwyCHNmR0AaGBV9xU3oHDU6KUyMWtAyLsOhZRSe lbm [file] ZrfBVQZr+vsH48/Enq7pHa2ddRHiIoeS/zI8/p [file] AgICAgICAgICAgICAgICAgICAgICAgICAgICAgICAgICAgICAgICAgICAgICAgICAgICAgICAgICAgIC MsDYUnIGQaCLKnZC2OBAQyGQYbYOXtGWLqXILyQOEt ICAgICAgICAgICAgICAgICAgICAgICAgICAgICAgICAgICAgICAgICAgICAgICAgICAgICAgICAgICAg AZFsOAWlLREoUAIxBHPmXOQxZIYcHN8KTPKsZBHqTADiSEYxBRBtYNKyPGRsXZHkYIDlYHMiJZCuMSIf ICAgICAgICAgICAgICAgICAgICAgICAgICAgICAgIC GjJDDmSETkYBAmEPQyPRMnJXLqBUOuBAHaKQEeOIAfEN9SMOFyAXNzLCNyKYPqERUwOYSzXXClRYHfAW AgICAgICAgICAgICAgICAgICAgICAgICAgICAgICAgICAgICAgICAgICAgICAgICAgICAgICAgICAgIC ImLVZpXOJdAEIhDMLyED8PJZSmUQNkKWIdZWClFWCr ICAgICAgICAgICAgICAgICAgICAgICAgICAgICAgICAgICAgICAgICAgICAgICAgICAgICAgICAgICAg VDAsOACgXVKwKONxTYPhKRLrXMJaXDZvRX4MARIrSCThEBSyJXAxMKHuLXFpIYWqIERzDKVpNWTgRPMg ICAgICAgICAgICAgICAgICAgICAgICAgICAgICAgIC DkIGIhGPOuPMAwGLGjUNEvEQFzUHAiEJOkBNLbIKVeWPDiNF1GXBMjPVGpUORlDBLiARYeBHIyLGLbWJ AgICAgICAgICAgICAgICAgICAgICAgICAgICAgICAgICAgICAgICAgICAgICAgICAgICAgICAgICAgIC VdQVWyJPQpDQSdXZDnVLXkWW7RQWZyNLLfDJCtYSNl ICAgICAgICAgICAgICAgICAgICAgICAgICAgICAgICAgICAgICAgICAgICAgICAgICAgICAgICAgICAg POZyLEKqDZEyGJFsNUSkWHFrBGNbUUKfULBxIS8YJFJrGUCdHKDrSGKrYEMbRTDrCZXbEEUkSERpMCTv ICAgICAgICAgICAgICAgICAgICAgICAgICAgICAgIC CjOGHlMIJqYAEsLMCwCBTfYHVyBUHcJABhLLDfHZMvLUMqTYPcWN9PDMJhXCNnHZSrUNPxOVQoVUAfYG AgICAgICAgICAgICAgICAgICAgICAgICAgICAgICAgICAgICAgICAgICAgICAgICAgICAgICAgICAgIC RyPZTxMGKnSHBgTVPzEBFvFYNaSF8QJV67uSNis9I6 CMJmQM3mxrn/Ic7LFIjfjoYbnFDdGK5ICsMgUE1tmo4PUyOuNM3yke5MVDxBTqEmE9Z3mTHzDEJcEXZZ XqVwX41uSOaoFz27MPdfUFEtFkEeVVm8Pd9SWdVgD7peZOZgBmK2OJGnXnM6RGYuOrP6YWZqXpAyXDMx TOWbMYUiTPVYYP4ZVaOqF9GoqQ71YJVMUp3+DQplbm QeIyyAOuQ9YYXzz1MdYOq0XE9LEAMmQovlu9NtWNemSKVWNIriZT4LDVW2PHY9YLAePr2DBDObA121jr EnZP8JYl2YUjBmPH8fcw9ZVBrhMQNwSneCFix6FSsdHA9HvAExRBmWlv4qseZgupTPm1VnqkLzwDEPzw auWP0rD4LmfYm1AVEDXHQCLU0rEOSoAQNtVJGfWiJq CWSwLVz4AmNJCDrCKyIrS8Pmm8RfOaD7SMDiOwVsWOmiUFYvAvN9LM77gOwaWW7KJKPaZQZvWK85GHT7 BQBkXs5CSv8EFaZzFI3rwe2MGLwzPJFvRfgOUhk5BGavQD8VdBWbE9YeiXIpf8vUJlBrM3OVZMX1MWOz Py3UIKKaMpUhWFSiYExqXY2sSIUkQXJSkDgrzhR8QD 6OLK2ehbAjTX2LRdTwNt4tUe3WEyMiU7McM1VyHOEkCZKBUHrhEC2URUdhQG1fHW0Wv2CZoHVwmJ6gjh 7QFGKjEQNbNdoohv0GBxmwA9S1tSsrOKBsQRJuTYTBRHwwWU9YGAJgVGQ8YAT3QOPoBGAEAgMgA96aWH 5VT0Fdm41qSsZ3HTFwKyUpEJnhQN79cUgonzSoaHMc nYonHX2QSe4+ZQfshhZlHczNWveoIGVHYgItUFlGAiFeEUGeIMIaIZIiEyZ8BlHrUr6GTMYsYAHpZMJr NkCyGDCbODKgDQceEWSyRKWvLtzbBBLvCHSyTV7IYzZqRUErTXQyJufkOYIsYHUdof3UCFWaGBWgZSG1 BlKbXYIcKFBxOBveUEMqVKCdHfE6DWUnVDBjQW6RNj SiDVRzRXO0OzEuULMjJJJecv3WEQQyIZUlJqUbELAdRXSbLOYxTPnjCEWaYEB2PdL9EXPaCSRcPQ9APp KjNUToWPv8JtCtNZKwHIRanw8ROCVjEFRyFBn9JEYvSICjNTNzIKdvSHSePUYsLMXbYBMxVCKaEJ1MCu SyNAGlDIO0MdcoDWZbONYbsa7GZPTnGMErJuN3EMKd GXCxWKEnLQqdYDAhIJNjLIL7FVAyNVYkFV8JJzZnRRLrOEX2SnLiBWZhCPKtbk1EMWEvHMCuXVJwCHJj GOPeENNkWGxvXGOdPSE4KKL0FSSxACGuYL1LUpMzAFQzYHZ5MjIjEVBqGPEkgv2KFEXfNOCiQMz4MzOd KHAoDJZcWVobBEOjWAL3TRW1SWAvHZOwXX7BRhGzFC GdEow3RKUoSQWoIEJmzy0SAHJcQTTkYVpkOEXyVDQzXOAkTHbcIYEbADY1ROUyRGHpVSKwFM1NPuRbYG CaGfqnTsCdQIAwKDGdsn5JPPJrGSEzZSTnThQpZMFqEXOjUYdiXRXqEVZvDcF8QFTnTTNtZT8HFgUiWN WpRvG2QEDjRHHdMOEjsv6HOICgJLHlNMzzKWCsFDSs FXMzCHhbKJNrELHgOeblELFkYCVpFV7LLxSqUNFiWlI7LVSzXZYeWAHyod7ZUFKxHWQiGsAjXXFbOURa PTQfTUzdPLLtHBU2YmR1HPZgUSLpQS7SLkXqKLAqMCR3TndjGQHlOZWnyu9FXOQsYEI6BJe5OkSyYFZe WIIxRYsxEVGdYIX0PHSkJJNmGEFaMJ3GKbEpWONuMZ RhNjMnFDSoFBRcjm7FZRFqPTD7LzKvAvNdAPVvGDYyNNbmIVAkECH3ZMR1EZEqAMXdCH0WFoZoKTDiOP f1GTNsXLPqTVLlps6LMGVpGGU4ZwV3NTRrAQVqJPSgCYmzVQAfWVWxSuV1FWLiQMTwDQ5JHiDhZFVzUD N9AxVzDNVrJKVmqx6GELCeITV5ItLePGQyBZQaDMEm AFnqQNIuKNMaCzK1PRZmTSQxKP2CQlQcILOqNZI4XffeJEZnYQAshb6EYSJeUKI9BZQhVtFcWYBpLXFi XThbVYYdDCO3Hzi5CNYfMECzHT1KKjGfSGSoJKO9EwmnSSFnSIHugv1JfWSxjXygmx2GYNuEDd1IbEfo GIQ0SMmeVe8hpVU1ZRTpMFTUNb4FemDvRVDeJQKDPB uuHLFzDPXnGiCwYLS8DdP4SBUlBAT8Y3I4OCF6QkaeMSG8ZzWkRwM5BGDpZsX5SwftGzTpLiWyLGGfNr EoXTZoLuDaLDd6GWQ+ME7uDGh+Bj5Zj5XrceD3whUdVXf2DQf5LZ2GKKPIM6BRJj== ID Date Data Source [id number] 06/18/2021 07:42:06 AM EST [facility] Name Value Range Interpretation Code Description Data Arabella rce(s) Supporting Document(s) Progress Notes [facility] CXJGBd5rQrYUEiGy33/JIVooRUUxn0BgJTsrDHv5SJdfPKKnS7SuTHT0pZ6fKPO3ZCyWZuXrKvOjDKDo lbm [file] AgICAgICAgICAgICAgICAgICAgICAgICAgICAgICAg ICAgICAgICAgICAgICAgICAgICAgICAgICAgICAgICAgICAgICAgDQogICAgICAgICAgICAgICAgICAg ICAgICAgICAgICAgICAgICAgICAgICAgICAgICAgICAgICAgICAgICAgICAgICAgICAgICAgICAgICAg ICAgICAgICAgICAgICAgICAgICAgDQogICAgICAgIC AgICAgICAgICAgICAgICAgICAgICAgICAgICAgICAgICAgICAgICAgICAgICAgICAgICAgICAgICAgIC AgICAgICAgICAgICAgICAgICAgICAgICAgICAgICAgDQogICAgICAgICAgICAgICAgICAgICAgICAgIC AgICAgICAgICAgICAgICAgICAgICAgICAgICAgICAg ICAgICAgICAgICAgICAgICAgICAgICAgICAgICAgICAgICAgICAgICAgDQogICAgICAgICAgICAgICAg ICAgICAgICAgICAgICAgICAgICAgICAgICAgICAgICAgICAgICAgICAgICAgICAgICAgICAgICAgICAg ICAgICAgICAgICAgICAgICAgICAgICAgDQogICAgIC AgICAgICAgICAgICAgICAgICAgICAgICAgICAgICAgICAgICAgICAgICAgICAgICAgICAgICAgICAgIC AgICAgICAgICAgICAgICAgICAgICAgICAgICAgICAgICAgDQogICAgICAgICAgICAgICAgICAgICAgIC AgICAgICAgICAgICAgICAgICAgICAgICAgICAgICAg ICAgICAgICAgICAgICAgICAgICAgICAgICAgICAgICAgICAgICAgICAgICAgDQogICAgICAgICAgICAg ICAgICAgICAgICAgICAgICAgICAgICAgICAgICAgICAgICAgICAgICAgICAgICAgICAgICAgICAgICAg ICAgICAgICAgICAgICAgICAgICAgICAgICAgDQogIC AgICAgICAgICAgICAgICAgICAgICAgICAgICAgICAgICAgICAgICAgICAgICAgICAgICAgICAgICAgIC AgICAgICAgICAgICAgICAgICAgICAgICAgICAgICAgICAgICAgDQogICAgICAgICAgICAgICAgICAgIC AgICAgICAgICAgICAgICAgICAgICAgICAgICAgICAg ZPTlFFVqDLLzQBErBLFiODDfOJIbLGEgXMJyBZCcFOZaYWVmZFToXXOmKITaJDKjOUx6F3nhQXVhQXOj GC8kVIf4Wc4+NPmOTyTnFRX0lxSkxG4OMU4zz3AvHVyxVETlx9KfADg6ND7MIAEeKNftXL7QQPbrrf2J LCDcFWOueEQHl2klYwQpHZE9HYQsBxhcAS0QBKRlN8 rowaEgHCMwPQCYHPbjJHIMJF3DPkVuO8LisJ99TBZGNh1+FRxvliIdYiaGYbLwRWUaw4BsDNd4YX9WSU FyCpfzb4XnJxOzFLOVDWohUT2YXUL6XGJwYQJtHo1XOPBtD816riRmFG4XGa7CQeIyAQ2ual8YFaSvAY LvZlbFGmg3ZUxuII0ZqGSzWMkLfb4yphPntwWJp0Vr enYewPIXobgpiNZpYOJWn6rwLCROImHyLAEfIEIqUT9jAMDmCIQ0FaAeDTGWQS4BNLSbYNKstZYjBAVg ZUODDH0AEMpwQEB0RmdffbIfoKJrLJvmCH2DJZWequLoYcIwKYKQFSp+Sd9WBY0pf8VcPGxuQKFxVP4k ow4CPUbTJsLuZ6C0rHWaO9Z4HQujZr4WQKFjPPXqMm GiCMCDUPhlCY7KDN4gfdA4ZK3GuHTmQYOvZFVgxYCcSKr9V70apKKhLXyzAN1QJES+Mau+Sx6VYZKxBI HzDAAxRgWeCFLVBdRxO6QoJ8BJp2JnJ1AeBE01bEwtroOqTLexQT3WRI5tSCAsDHHMGT8TfFOthO2sos AnLqSfWKPWUdJvR46lpZYtDHVvOBBsPDFmLo7LYZSo Z4MwifBalLwbsdWoSKJlTQGQCJ9DTGmolqOqvRVwpDtkDG59tIliSV5WAz8OSrRoGR0yfh2RcXDqEs5Y CORwOZ9HALTqIVPhSIOhTMG9MBRbPrKiNSbrARSnDUEgMEL9KMWsNYKrQX1MYwBmYPFbMfS9DRImXMOh QPDfqk3QTMEgAIGaLdLoFGOxZOFbRTTfXAviDMGeMD RvTNW5EOCkQUZuOT0CWvAmRUHbGXKqWnPxUGOtBNWeho6RBIUoAJGxIuI6LTJrOQGlJHRdKIziKQCmJZ T1LCD0CWWsFHLnZQ3YOtWlFSOeDHEdIDShPEZhWPCcra6XSPIwAQVfDqRzPEScZTPcRXQaJKgmAPGlJR E2JbPzHXCyCUMbGS0LWmQiVVBtWEGhYWTaMYDaWHYa wf2ZVTAyNVHzVxD7NzKiGLExITVqKSunFSXnCTU9YEIvTKJzMCIgLR8MUwBhKLKeMAu7NyNjGYIpRGQn yd8IREMvUGDuWCH4OSGrOMWnCQZpFQfiAZVvVXO4NRSdNOXwHWNgTW2BBpDaHOJiKUlvXEXtGFNfZQOa xw0IQSPbIJSdPNT9ZJQgFPBjYVIqARrcZAEpEIZiRx EmJWRtKDUhFW2OCmTrETOtTIW4SkLfSXFpSPMwep7HAMOiSMMyGmzzYgAyEZGuUWXyDVzjISAdICL0HS U8YHUsGPXpFV6YQtCpMDBeEwCtWRanINXcNRObao2LLLHzHHTvJYQkSPXcGYVkDOXnOGbkJGRqDHS3Fy X4CWPkEUHzBU4EBsOyGQHeOzr0ZRQgCMYoUTDwhh0I OPHeMZMbPFhzXzCtXNGhLCRzCEiyLQFeHTMsHCS3VDIyGTBpOJ7UCjRoXNTiEhUnTaOzGSKeRCOedu3O IAJdCSJkDVJyTVVqFIEuKITmOMczHARbPXLpQZqyZVGuHZXoAS8ZRqZoJRXgXiQlODBbYMVrGHGwui2C OQQqLBPbWsB7MPBsROZjOBMkMFbqADAcLPUxIOD7RN QwMUMiWD1AJkDjBHcnXPPRMes6PKxmC6f0IUDuZS1GB7Ijz9GzScFbEXRQIDpyBJ7zkuSzGTEcHk9XX4 mSSwjqXAF6LWW1OkY4Q1DkINSrDKq4ZFIlESopLEkpQiplAe4bEUIgOQz3GuKpLXPfS2A3YGXsDMJiYb CcTHGaBLFyCTD1DsQuOS2LPp8LOlE7ASG8sHNtNa6LPtF0EwdXPfBbOO2QAMf= ID Date Data Source [id number] 06/18/2021 07:41:41 AM EST [facility] Name Value Range Interpretation Code Description Data Arabella rce(s) Supporting Document(s) Progress Notes [facility] BCOESm6vCdQOKgPt33/QBJzjDBPyc3RpBBblWFr9PQmhQRHyT0JwJSV8mV3tTNH7VPkNPmEjApIpIOCw lbm [file] AgICAgICAgICAgICAgICAgICAgICAgICAgICAgICAgICAgICAgICAgICAgICAgICAgICAgICAgICAgIC AgICAgICAgICANCiAgICAgICAgICAgICAgICAgICAg ICAgICAgICAgICAgICAgICAgICAgICAgICAgICAgICAgICAgICAgICAgICAgICAgICAgICAgICAgICAg ICAgICAgICAgICAgICAgICAgICANCiAgICAgICAgICAgICAgICAgICAgICAgICAgICAgICAgICAgICAg ICAgICAgICAgICAgICAgICAgICAgICAgICAgICAgIC AgICAgICAgICAgICAgICAgICAgICAgICAgICAgICANCiAgICAgICAgICAgICAgICAgICAgICAgICAgIC AgICAgICAgICAgICAgICAgICAgICAgICAgICAgICAgICAgICAgICAgICAgICAgICAgICAgICAgICAgIC AgICAgICAgICAgICANCiAgICAgICAgICAgICAgICAg ICAgICAgICAgICAgICAgICAgICAgICAgICAgICAgICAgICAgICAgICAgICAgICAgICAgICAgICAgICAg ICAgICAgICAgICAgICAgICAgICAgICANCiAgICAgICAgICAgICAgICAgICAgICAgICAgICAgICAgICAg ICAgICAgICAgICAgICAgICAgICAgICAgICAgICAgIC AgICAgICAgICAgICAgICAgICAgICAgICAgICAgICAgICANCiAgICAgICAgICAgICAgICAgICAgICAgIC AgICAgICAgICAgICAgICAgICAgICAgICAgICAgICAgICAgICAgICAgICAgICAgICAgICAgICAgICAgIC AgICAgICAgICAgICAgICANCiAgICAgICAgICAgICAg ICAgICAgICAgICAgICAgICAgICAgICAgICAgICAgICAgICAgICAgICAgICAgICAgICAgICAgICAgICAg ICAgICAgICAgICAgICAgICAgICAgICAgICANCiAgICAgICAgICAgICAgICAgICAgICAgICAgICAgICAg ICAgICAgICAgICAgICAgICAgICAgICAgICAgICAgIC AgICAgICAgICAgICAgICAgICAgICAgICAgICAgICAgICAgICANCiAgICAgICAgICAgICAgICAgICAgIC AgICAgICAgICAgICAgICAgICAgICAgICAgICAgICAgICAgICAgICAgICAgICAgICAgICAgICAgICAgIC AgICAgICAgICAgICAgICAgICANCjw/xDUgG7ykfYJj wlQ8A7chOl2IYa1UBR2ez8LfQLFgVOwvmvVoJouTTnEhABHfIdsXXya6AMxkGH5DqHArR6IyQ4HfWZxy JM8ULJHmGQUmrLPcKDToAOZjGkQ2CXKaPOvaRG0QpUSvGMqiMBWoWOWeMlXhFMSfFK0HRQGwV864riZu Mo4BCs0HGoIrGI8pgy9FDdHlWWPdCpdUYbx1AMqwOO 8FnSXcqFMkBiFiLRANOlQlV0nad9TcWvXqWCTTECmcTF3Mp4HobQRpHZm+Co2QZE8gg9JyZRsgBrEgTW 9uvl2MDGtOFuByQ8QzmHzjZDMxt4htDVHvXY8yzEIlFMS9PEGpbwipnQdmWNZ3duaeYAJGZOBllFCnJF 39HhFiNsQhYBK3GNInXT2iLNlsDZ9MZHK1ALavPFBt IQVtB0jJNuTrGFriZOSoxJwmRP0FMuMzA7GhjzZbtQXxKVKhMFVHQi0+IBmkwvDqJolSBpJ7RFFqb9Pp GBu2JI0OICCqRMemUP6MYIGsmM3fVOtzKU9NNhCsSxMfJTKZCxZzM00tnMSvIRe6G7SpNwAmOHCeNafk ZXMgPDwvTmFtZXMgWyBdDQogID4+ID4+YZepLH1GDL swcoJwEGZqKn9SOFRlIICxNK1cLKWhCTGsG4B5dRvjGWLTTxVjA7jcnvdaST0rPVNsS589sMfzrhAvGV C9YFVmZs2UVIQdPUR1GTPusVNtInUvCAZBEZprQU0SnWAuDRP8gT7vYNjcJIJdJPZwP4zXXaXvyVlyZD 51bGwgbnVsbCBdDQo+Lc1SCM5zz9XaGIm5fzGmDGjw BZK5BCrwOIIbGRUkLGKfKWT9TIB6LVYSOdJlNHWzGRLcMKazJHBoMBNgvb5KOTJrPWAvBWrlZNAqXLJv ZDWeGKqlDTGlSMV9MxSxHPBoANDgFC3HFuNpIVLcTWCgTEodHTFuGEPehe0CGLMaUMZtUvI5HoLqYRPv LHDnSFhrZAXcNAPmQpiuEVXmJPHlEU7KEgDgZYFwDZ AiHNLbBRMvYRZbsq7WDXGqFGFoBBTsGVWlXOOnKZOkKWvhVDHpGKS6JMm6MQExQKVwDN4YStQjMYDsQS P0GkbwLZPhDFQrbj9BWERoRSGwKsb2HpGoXGNfESLjVHflEUKiFPT8LBTbMNUiYMQuBV3ASeBqCJRlTT yjPsRzHCGtUUMibg0VQXPgJCXgSIVqFzSdZNNxGPUl MIcmDODlVQX6XTYzIFCxKQFcOF7ZRyFzELGrRAjiNwSwQHEkWXKptd1GUXOoBOJnTXP0MdNlVTMzYEPw HRvnDGCmYFL5IMQ4QKTpFIXfRG5XEpCsGHCqFcC3LTVtQPUxTEGkqh9SSXNgUNJdOwu7ONNbVWIqMNXc QJvjUGMoNYP0SnS1WQBcFWYiFF3IHwNdXSQnVgj0JE SwXUPvQXInjb2ECOEeDUGpBNR5SbEmRXYyFRRkWNscPRTdOIJ4BRP7ICMkLJVmEC3NOpZjYJMnCnh9Cj CdPNQsDUUmmv5QXMElPIBvQZJ2IhOmJMCaFLKlQZbdUNLyROM3ABRzAJKnAUMlGE6TAhPtYSXkZqRsPp HoYYSiXISbmz1QZBCcOQScRLm5BSJdQFMwJKWyJHkt MJDpVLR6SNe6PEBaDLBrQP6PHjPlNNYjUoQ8OHTuMATgWPZube9LEUXmPHQdZQH6SXJjPHXmIQHaEDeb HPYbGLM3Xpa6MQQgBCLrQM4VVgXmUVFqUpWyCqVjNAYyWUJdrs1EXQCoCKOaJypmXfMnGXPmQIZwZUkj NOXrEOX6Ntx6QXZoJLGrFV6BYtSwLWQaBje0WmteBS CsZANatr8EiDSzrFbthy2XAJaEHy3SbLoeTTM9CJsnLb1ttAEnFjVlBDMZSi7EsjQqBELpXOMKGZwpPW BpAVb3NGKuIWxlTsBvIAOwYateD4HlHettVKXxISVeOERnSmF6Srq5VsC8ALGzQ1V5DwYsOWEsTpN9Ma C7NgFsQGQgGYR+LF9yRHo+Zv6Jn3QkqqF0beUcYQcaREQ3VA0OCFQVZ8HTRx== ID Date Data Source [id number] 06/18/2021 07:34:15 AM EST [facility] Name Value Range Interpretation Code Description Data Arabella rce(s) Supporting Document(s) Progress Notes [facility] LPBYJj9aJsPBMlXk25/WRTzrSWKqk9AeBTdpVHz5MGofKIJcM9FgXWZ7oE6eJCH3GKiCBfBdZrVyJSKg lbm [file] LvExWN8GYz3MNlI5SUU5mMKfCd4NGmL8IbTXVvQjAT6STIm= ID Date Data Source [id number] 06/18/2021 06:27:38 AM EST [facility] Name Value Range Interpretation Code Description Data Arabella rce(s) Supporting Document(s) Nursing Note [facility] FEDKOv8bVyIVReRe84/XJVbuKQXmf1OjORvmCFs4IBnwFGBgN9OxALB3vZ8pUZT2FTnZHlRnEoGzUFJm lbm [file] NjU+AL0jOBl+Gx6Mp4JfytT2nkUjXJpeXKXvAF1ICEHIX4ZPEw== ID Date Data Source [id number] 06/18/2021 06:05:00 AM EST [facility] Name Value Range Interpretation Code Description Data Arabella rce(s) Supporting Document(s) Phosphorus 3.0 mg/dl 2.5-4.9 Normal (applies to non-numeric resul ts) [facility] The above 1 analytes were performed by [facility] [id number] [facility], ,[place] [id number] ID Date Data Source [id number] 06/18/2021 05:51:00 AM [facility] Name Value Range Interpretation Code Description Data Arabella rce(s) Supporting Document(s) Magnesium 2.1 mg/dl 1.6-2.6 Normal (applies to non-numeric resul ts) [facility] The above 1 analytes were performed by [facility] [place] [id number] [facility], ,[place] [address] ID Date Data Source [id number] 06/18/2021 05:51:00 AM [facility] Name Value Range Interpretation Code Description Data Arabella rce(s) Supporting Document(s) AST 14 IU/L 15-37 Below low normal [facility] Sulfasalazine and sulfapyridine have the potential to falsely depressAspartate Aminotransferase results. Baseline values before medication administration are recommended. ALT 35 IU/L 13-56 Normal (applies to non-numeric resul ts) [facility] Sulfasalazine and sulfapyridine have the potential to falsely depressAlanine Aminotransferase results. Baseline values before medication administration are recommended. Alkaline Phosphatase 82 mIU/ml 50-136 Normal (applies to non-num madiha results) [facility] Total Bilirubin 0.30 mg/dl 0.20-1.00 Normal (applies to non-numeric results) [facility] Blood Urea Nitrogen 9 mg/dl 7-18 Normal (applies to non-nume ny results) [facility] Creatinine 0.70 mg/dl 0.51-0.95 Normal (applies to non-numeric resul ts) [facility] N-Acetylcysteine (NAC) and Metamizole em ve the potential to falselydepress Creatinine results. Baseline values before medication adminstration are recommended. Patients undergoing treatment with phenindione will have falselydepressed results. Patients on phenindione therapy should be tested with an alternativeCREA method.Toxic levels of acetaminophen may lead to falsely depressed results forpatient samples. Glomerular Filtration Rate >90.00 mL/min/1.73m2 [facility] GFR Reference Ranges:Normal Function or Mild [...] of Health and the National Kidney[employer]. The [place] method used in calculating this result is traceable to IDMS standards. Glucose 111 mg/dl 70-110 Above high normal [facility] Sulfasalazine has the potential to false ly depress Glucose results. Sulfapyridine has the potential to falsely elevate Glucose results. Baseline values before medication administration are recommended. Calcium 8.2 mg/dl 8.5-10.1 Below low normal [facility] Total Protein 6.2 g/dl 6.4-8.2 Below low normal [facility] Albumin 2.2 g/dl 3.4-5.0 Below low normal [facility] Sodium 137 mEq/L 136-145 Normal (applies to non-numeric resul ts) [facility] Potassium 3.9 mEq/L 3.5-5.1 Normal (applies to non-numeric resul ts) [facility] Chloride 106.0 mEq/L 98.0-107.0 Normal (applies to non-numeric resu lts) [facility] Anion Gap 7.2 [facility] Carbon Dioxide 27.7 mMol/L 21.0-32.0 Normal (applies to non-numeric results) [facility] The above 16 analytes were performed by [facility] [address], ,[place] [address] ID Date Data Source [id number] 06/18/2021 01:45:35 AM EST [facility] Name Value Range Interpretation Code Description Data Arabella rce(s) Supporting Document(s) Care Plan [facility] AHDEEb6zYlDHXtSc37/LZXgnGCUep2TgWWutNHa9LYybUVGfM3ClXEK4bL8pXSM6BXdJLgNdVwEsMCAl [facility] [file] H5UVJlWnDlLJQ7LBOlFiSyKdI1GLe1BH2tJWLZQl6+FHgdpZIxpTgeJUXHKoAmBNw8GUfwWPASWu9Z ID Date Data Source [id number] 06/17/2021 06:56:17 PM EST [facility] Name Value Range Interpretation Code Description Data Arabella rce(s) Supporting Document(s) Nursing Note [facility] IWMHAb3aZoEVXaBq59/ZCXnaGZCvm9KaUPnrWVb9AIotCAHcQ9BsJTW8aT2fKYM3GTxALtOwDdLlEIL2 lbm KlWtzIOhQcYIBlIaqLNbVaMOzqGluvdEVkMR6BrNJ8LCHpT43wTXCvDLMdX0RfUNUhWPx+Gy0KFKKqgA PhFP1SIcsR8SzqU2qfRL+ftP/tHdxVgVYCh2nQPOdpLB6Vw9pcNn+IvoZJG5r/efbrq1W5og4sWxYHoB MCFP/Bi30x3ovb9PTK6+z6qHZKYAAm/zUsdccqejP4X [file] L1TjHoKIPtVqTuQGAuDR9eUPUFAm5+KBlvkUKfcCiqVQYIBcQhHBJ8PLnpDZNBCv7X ID Date Data Source [id number] 06/17/2021 03:56:43 PM EST [facility] Name Value Range Interpretation Code Description Data Arabella rce(s) Supporting Document(s) Progress Notes [facility] DYRZRt2dFzRUAnQb05/LNXjpGJMco7GfAQlsUEe7MPfuPJAkR8DxSNX2dA8mQVK9LIwPYpSyOuNpPAG0 lbm [file] o= ID Date Data Source [id number] 06/17/2021 12:31:39 PM EST [facility] Name Value Range Interpretation Code Description Data Arabella rce(s) Supporting Document(s) Care Plan [facility] HPVYLc1eIeXORjNq96/OTDfkMSMvc7KpLFywYWr5HOxfPYTqT0EvCZS4wB3kDDI9MEgOTcOaOsQhMIP1 lbm [file] cytology laboratory manager+2ViTStoLDUtZ1nOMw9+33/0LCFfhSISph3P728 [file] ICAgICAgICAgICAgICAgICAgICAgICAgICAgICAgIC AgICAgICAgICAgICAgICAgICAgICAgICAgICAgICAgICAgICANCiAgICAgICAgICAgICAgICAgICAgIC AgICAgICAgICAgICAgICAgICAgICAgICAgICAgICAgICAgICAgICAgICAgICAgICAgICAgICAgICAgIC AgICAgICAgICAgICAgICAgICANCiAgICAgICAgICAg ICAgICAgICAgICAgICAgICAgICAgICAgICAgICAgICAgICAgICAgICAgICAgICAgICAgICAgICAgICAg ICAgICAgICAgICAgICAgICAgICAgICAgICAgICANCiAgICAgICAgICAgICAgICAgICAgICAgICAgICAg ICAgICAgICAgICAgICAgICAgICAgICAgICAgICAgIC AgICAgICAgICAgICAgICAgICAgICAgICAgICAgICAgICAgICAgICANCiAgICAgICAgICAgICAgICAgIC AgICAgICAgICAgICAgICAgICAgICAgICAgICAgICAgICAgICAgICAgICAgICAgICAgICAgICAgICAgIC AgICAgICAgICAgICAgICAgICAgICANCiAgICAgICAg ICAgICAgICAgICAgICAgICAgICAgICAgICAgICAgICAgICAgICAgICAgICAgICAgICAgICAgICAgICAg ICAgICAgICAgICAgICAgICAgICAgICAgICAgICAgICANCiAgICAgICAgICAgICAgICAgICAgICAgICAg ICAgICAgICAgICAgICAgICAgICAgICAgICAgICAgIC AgICAgICAgICAgICAgICAgICAgICAgICAgICAgICAgICAgICAgICAgICANCiAgICAgICAgICAgICAgIC AgICAgICAgICAgICAgICAgICAgICAgICAgICAgICAgICAgICAgICAgICAgICAgICAgICAgICAgICAgIC AgICAgICAgICAgICAgICAgICAgICAgICANCiAgICAg ICAgICAgICAgICAgICAgICAgICAgICAgICAgICAgICAgICAgICAgICAgICAgICAgICAgICAgICAgICAg ICAgICAgICAgICAgICAgICAgICAgICAgICAgICAgICAgICANCiAgICAgICAgICAgICAgICAgICAgICAg ICAgICAgICAgICAgICAgICAgICAgICAgICAgICAgIC AgICAgICAgICAgICAgICAgICAgICAgICAgICAgICAgICAgICAgICAgICAgICANCjw/xVYdK2hhtMVzid J7P3neAk7ZSe8RIE4tm3TuQTEnXFgiymHbOidLYdGvIATiVtnUJzh3KThlTG1FbRVtE2PkN8XmQLhwRU 9AEABzXKCiaCRyVTRaSIKpVtO3IISyFHjyFE9KyOGe MDuvSPXrZAOkIrKeJJVnYS1XGQJtQ778dmTtMp1EOx4YKzCtVN2jco0OLxzcCOTiAssAYbr0VZfvKG5U pJMnnZYrIACnOOADLuPcS9klr7UoLkgxWOZIZWfnUD3Fb7XksUHgPYr+Ce2CCY7sw6UvGNsgNNLtIO4k be6IYDaOFvZyV2QaiIjuLPZgaeZqHOuwdcGapTFZGR SoMIVcg02wacieWh7cFLShQRXtCV2eGWVlIDKwTuUdNHGLBW8HGYLsVCTlqQEmMMZgYBNSJL1IJVhuYT U5YymvwhAbbYJpHBisTA8UMUOllzIoXayuMPFJGGl+Qn6GJP2hl9UyPBwsGQLcGF4jlz5OVUuMPnFxM7 L6gMOnC6V4STpaAi3AXPFlIZEaNlRpFOILBOjlLN6C LH1dqlG2ZS5JdJCmXJKuBGCsgNBaPSn2J47qeJKiRUfzZF5JNJP+Mau+Ce5TZLDmCHRuDENbTmOeTEVC OlVxL9OrL2DHf6SyX8LiPE97iYxomsVxLFudPP6BAD2rXYTbUTWRIH4YoEUncD4upvRvSkDhQPTALwDe V94nmONeKLExIXY6PDGoEc0ZOXJpA8DjxiSodVzuwo HwTDTnOXSEPY8QPWcxzdNlfPTzqJoaJP93yEtaNT2KCl8RVhYyST9jfx1RmGBgQq8UYZUxSM8QAINeXB QpSSKlKQV5CNAxKpBeJHliJFVgHFGvNXD1ZEOxKLFtHX5PFbSyAOQwNxU2BrRbEZHgHHDlai2NVQEwFX PmKxP1QlJhFKWyXAYmNVfpELTfCPNnHKO4PAYiIGVd PF0IVdKiUMMeUNEmQWFsHPXbCQFkee0LHGAhHFWoRwM8CdLiWECsNPQhKBscZIEiOTFwFQO9RTKqKAMr GV3UQaDwRMTiHMHdSxmwETMdVQYjci0VRIIiSMStYIX3XkUrZEZaOYBsPQmkVVFdZQY5Fua2JJGsDKPx VP2IIgRsARZcTFC1CfUaYMFcEIMkkt0FTKMoVJPtNL HiPqNqXWGrVJNbFRjgXWDiGRO9RcXtODShCILsLT2BRqPuGLLzFLK7YQWkMFIfWFNvyx5RBXZzYEUgQO R3QoHnZXMgGUDpWDcfBRXsGDN6PNl7STHsRJCsVN5PVnBwFBTiRZb0IEulREKgUNJjdl2EOKSwBRCvYA QzCwBaDNIdTQDvWVquFDLuXKE7IAjsLUVsDYDqPR3K HcYiZHKsUkGxAXWbZCLkMPEdpz4FSZQpGRHcVRRrDnYxZQTjIZByBTpqSZCeBQQlMDi7WNYgIQFpZD5H OiJlDZVjMuO9HBRvUXMkWLUtkm3JDMCqDPBbSBWhHmGoDXLpBRKtFSciDMKaDFSjAai3BMKsFSOkND5Q RnXnICLxIhTgJaJdRJDuVHBjed7SUVHpCINiHfY6Vt WwRYMfTOGaLXclWGQyEZPiHfK0TULkYPKgEQ9GLvOqEXAiTpG4ELyuMPHdVFDmhl3KoYHzpXtazb5KXB nAJh1NtYaiCQEiHAkpOb2apIOpZKDqVMBRKc7UncJvTCUvBYMIZSjtUCJaQXx7FTysPUHeGnYbSKMdMH ppR5S7Gun5WPB6IMXeMMKbHdW1PJyaBwEuWeLlTbGc A0K9PKT0RTj0HHfcXQJxBOJgH4W+YO9nGZe+Wl2Dl2LlxkI8eiLrSWkeVJAhKv5SEUOPH8PKOv== ID Date Data Source [id number] 06/17/2021 06:04:57 AM EST [facility] Name Value Range Interpretation Code Description Data Arabella rce(s) Supporting Document(s) Nursing Note [facility] TSYVFy0tQaBGLxJf10/ZDAenVCQyh5KqNDqdERm4UWqfQKIaA4KoVTA0kC1qUKW4EFoLXySsLbPwMEC6 lbm [file] == ID Date Data Source [id number] 06/17/2021 01:33:53 AM EST [facility] Name Value Range Interpretation Code Description Data Arabella rce(s) Supporting Document(s) Care Plan [facility] MSODSq1vEiAPAbDm33/FPDoiXUHvd6OoLVbbRWa4JWmxIGRzJ1XkYKC2zB4sMJU2NErJDzYzMcPwVRX0 lbm [file] [facility]/3GNyjFKK56P6VsQfY6LDiS06jTWnKCIosPWPxAJ8jBvLGG+Raphael/UibNc7ybN7hFH0GYnmzNxrqp [file] AgICAgICAgICAgICAgICAgICAgICAgICAgICAgICAgICAgICAgICAgICAgICAgICAgICAgICAgICAgIC ANCiAgICAgICAgICAgICAgICAgICAgICAgICAgICAg ICAgICAgICAgICAgICAgICAgICAgICAgICAgICAgICAgICAgICAgICAgICAgICAgICAgICAgICAgICAg ICAgICAgICAgICANCiAgICAgICAgICAgICAgICAgICAgICAgICAgICAgICAgICAgICAgICAgICAgICAg ICAgICAgICAgICAgICAgICAgICAgICAgICAgICAgIC AgICAgICAgICAgICAgICAgICAgICANCiAgICAgICAgICAgICAgICAgICAgICAgICAgICAgICAgICAgIC AgICAgICAgICAgICAgICAgICAgICAgICAgICAgICAgICAgICAgICAgICAgICAgICAgICAgICAgICAgIC AgICANCiAgICAgICAgICAgICAgICAgICAgICAgICAg ICAgICAgICAgICAgICAgICAgICAgICAgICAgICAgICAgICAgICAgICAgICAgICAgICAgICAgICAgICAg ICAgICAgICAgICAgICANCiAgICAgICAgICAgICAgICAgICAgICAgICAgICAgICAgICAgICAgICAgICAg ICAgICAgICAgICAgICAgICAgICAgICAgICAgICAgIC AgICAgICAgICAgICAgICAgICAgICAgICANCiAgICAgICAgICAgICAgICAgICAgICAgICAgICAgICAgIC AgICAgICAgICAgICAgICAgICAgICAgICAgICAgICAgICAgICAgICAgICAgICAgICAgICAgICAgICAgIC AgICAgICANCiAgICAgICAgICAgICAgICAgICAgICAg ICAgICAgICAgICAgICAgICAgICAgICAgICAgICAgICAgICAgICAgICAgICAgICAgICAgICAgICAgICAg ICAgICAgICAgICAgICAgICANCiAgICAgICAgICAgICAgICAgICAgICAgICAgICAgICAgICAgICAgICAg ICAgICAgICAgICAgICAgICAgICAgICAgICAgICAgIC AgICAgICAgICAgICAgICAgICAgICAgICAgICANCiAgICAgICAgICAgICAgICAgICAgICAgICAgICAgIC AgICAgICAgICAgICAgICAgICAgICAgICAgICAgICAgICAgICAgICAgICAgICAgICAgICAgICAgICAgIC AgICAgICAgICANCjw/uFZkL8mzmHPzyxX6I8tiVb1T Rp9EBA0zt2NeUNWiAWvsmpNuJatLQxOmWNBgJnlTStr5MHwyDZ8RjGOeF3AfU9WzHBfsTM7FQJGiTWYe tHKjJSJzCFIsCnK0JCDlCVocJX8ZgQWdNLxqNYDaEVEmOyObKEYyHQ5RDZPjE841hqQsMv6HLs9YHpTo JI3kty1XDgFpWZTiRwpEYmn1LUimPU9SkUCazIHpGs FmOXUBXdMmN5fyj8FjYkSgPCSWOFfrJF2Xe1XonGRpATn+Kl7MFY8tk3FuEEgkUtNjDL6kth0ZSUiZPg ClL5RybUslXTIhuqOfIPtcdoIqnHXQsLlonWKdM7PrfZ46lANxDNQRFpTkrVMyBC55ExYxTcHmCXP8Nq WkTS9lDVgeMH6WLBP3XWcnHOKpSUXsQ3sXVkTsOQgl AVQyzPwwKO8SGoWuH2HuilButFKcWiRwBHRZXp2+IVjiohXaQfgQRpD0QNHdp5HkKGn7MS8HKXVvYPnn LA1XQEYcdL9gKLghKC3ZQpMgPOHrNZBYZnPoB81lmJNyFRv0V7NkUkSmWIUiPngrBHFpCYvyAzGmSNIp WyBdDQogID4+ID4+GAzaAV2LXVbuuaNaAIIxSw0LLJ HnDIKcIV6kOCWmOZZsO1N7iMayVMQZQtNxM6duztagNP7rKDVvL974sHobrtQtMNOvERFmOe4JSVUeQR O5EJXggNDsEsOsMSIEYRugZJ5GsMRcDXT1iP6iXBbuTMDwWKVuT1fCLcYsiNblDY53eMnhrsNpjATfNW o+Us5FJS3on9ZgVMb2zyEtIJrtLLJ0KNecKYMaTNMm UFJeDUE5JOS8QCBZHfRhHRIaLXWhNNwkMKPzEDYumu4NCVZhZKWbDcK2FVFuORRtRCTjEVyjPMAeYSE8 RSGwEWOjQELpQG2INaJbQNCmSYKjCItfLNMfAQMqfw5XARCjPYWxAxSdXlUxZHNiXDQnEYsbZCEiQRAz FbP4NWAhYOPyTJ3WSlNfTUFxNZK0KJVuSHMaLNPhcn 7WNVZxZZYmVQczRMZzEKAjPPNoTCrtKNWaPBY0ZsC8MRDcVGKlVA9ZGcInUDGcTTX5BhfzQJOgBIMuwr 3JLSXhGPDuIqZ9ZEZtLRUuFKFtPUbkBFXcQVX8VDO3JJTsBBRvGT5ZOpWiYFCeSRwsBZLrJLKgNLXqpt 9PAJTxPHNqQdL0XUHkLDWwFNDbDVyrDWXgDKL6OVKw NDJtNBPzBZ6ACqBhDRFnKjJrIXgoDVXvSSVebz7RAGJsVNRuSQG2XYZqCVLsMLPeYJoyRQRpTIUyRzH8 EITsNDFhQH2PQmYnCAUzXbA7IZGrBOMgNMEzkc7DTDQeBPIhPVH9YvBiRDHzYBWyDAvpSUSkWBUqQNb4 MTVlNKWwCY8ZCiQqXWXjBeSrLPDpTKSuABJfhp1JZW EoLDLcIxHbWrUjPKXlGFNrBWlzANZpKSJvTaC0GXUyWVBdDN8HQaXaPMUpRdHoXWClVJRnYJAsnk2WTJ YwJMJfXrkdAUCyDELiUKFxMDnqQIDfPEG9NUUzPDIoIXSxPL4FKoJxRPHiEufaXqObLPZwFCXwaw1DTU YgEMMyBrI7CPFtUQCfKAUzUEguZYRjSSB9IeExBXEw QEEyJF9FLpUfSVDxFsdeNpXcYEDdEGBoie1BWIYmDNCgBIQkVaHjNPPrPSNfQBftKSPdTRY3OGc9TAUa GNNvNT4YMwShUYMkYxx7TcEyMSAiMPGvfn1VuSNhgEtvij6NUJoUVs4DkCtbJDY0GUqdXe8seJPbJKWs HPSTQx0FvvBxFEOuUMBBKXmnBPZuZHTlJIVrPUJsPB p1WaHzESYhXKN1AXO7VKD5BJwwAHVmPqZ0YtRaLbVsEEO2KOAkCMGtJ9O6SvXbEde8BoicO1UfCnA+IF 0gDQo+Pu9Kz2PfozE7ehWkKDojYZq1Wc5HKGAVP5YHFz== ID Date Data Source [id number] 06/16/2021 06:29:05 PM EST [facility] Name Value Range Interpretation Code Description Data Arabella rce(s) Supporting Document(s) Nursing Note [facility] JRHVMw1qGiGDZaIa47/VEEogFFJoh6YbDPnaOLe6EOvhFQXxV5AhYGU6zQ1bPPA4EAbTCtXfJhPzQUW1 lbm [file] PmorP2mgTiGZocSLZ6KQ9LPXDUI7JEVh== ID Date Data Source [id number] 06/16/2021 05:46:27 PM EST [facility] Name Value Range Interpretation Code Description Data Arabella rce(s) Supporting Document(s) Care Plan [facility] SOSNQo6sSbLAGvUj75/XTJqxZYKvx2IzMLvaUDq9RInwNJKcB0TtYBQ7fL2yXCP8EHzYTqQrOoJqUMN6 lbm [file] A+YR2mEBo+Ve7Gf6FaszR1ncSeRBvvMoW3Bf9GEMGZM5IAGg== ID Date Data Source [id number] 06/16/2021 05:48:00 PM EST [facility] Name Value Range Interpretation Code Description Data Arabella rce(s) Supporting Document(s) Phosphorus 3.9 mg/dl 2.5-4.9 Normal (applies to non-numeric resul ts) [facility] The above 1 analytes were performed by [facility] [place] [id number], ,[place] [address] ID Date Data Source [id number] 06/16/2021 05:16:00 PM EST [facility] Name Value Range Interpretation Code Description Data Arabella rce(s) Supporting Document(s) Magnesium 1.8 mg/dl 1.6-2.6 Normal (applies to non-numeric resul ts) [facility] The above 1 analytes were performed by [facility] [place] [id number], ,[place] [address] ID Date Data Source [id number] 06/16/2021 12:40:15 PM EST [facility] Name Value Range Interpretation Code Description Data Arabella rce(s) Supporting Document(s) Progress Notes [facility] WGVTKc0yFfCEVgOr01/NZFkgVKAvo5AyMOhoCBk7NNilXJNwU9PuRRJ3tT8wLDJ3NHlBMqIjOiKbDRG2 lbm [file] XpzK8XI1ZPYJkNTGPOOj8STHKpM43XLZCD+2ArVK93 XCX8HE8Y+bOorAiBCmSmTJgtOOA3jI+6yE5HfgUEaHdTOoivkAkcM+yHWwJFHbRSV+UqW+aeBT4A/oP6 mwZWU03GtdM7/o/mDR0WJIZ3b3l/cII6DIsqTHmY6KcjX3u/NX0dxHs44mWzIhpFvJWK5cW43xJ8QLmV ceAAK3Qc0kVYAOewX/uceBrtOgT/w9P5IQ73PEAj4j pWwzawv+sI+W7b8o+VVv6oju+BdicPuN5c48oHY6B29Sd+rYrhb09K33kbxI4O5PLXGrQyyuzG/xLUec /2Mc3Pe2QnWYRaUeRa2aTGyjAH1e2lcDd3UviWlUO7X3/Bwa5hUi82Q1w+jpX7kN5BCJcrwLf3OBpJxM RT1tSmkjGB5tCheMeG1uRMr98Iv86hsm+kPgUcwXpp fBsAC9axBmLjy528wd7nVUC1Cs9AWMNrOcOP81GV1x97gb+h+1Se31KbFq1b9qhupuQtM1GrTNY2qdK7 j+z+6qidAr/L8Gq6FABjv0Nh9XcyhO1J6sVhrQN+MExI6Ei+M+ZjUjwF5nMyqfanhVL5tL4WjacUK0wC qxncw+keYKHLRSmuluJvqMxVkyhfnDHafxtLnDuuQ9 2ppu16B8/Ph+/vMpPvsMa1m5K3sSYgyVEqREt8ITqlKJ3qT/99kIZnZ+I3LgZQVLUFU94q05LFCqN3DH cnWblmSjrEt8CyqGgsXwQIHoRrMAGc6HB9yXh8o+k2Ke9vifK7Ox5sKrHg8BYKarnSdMzg3Go14fqAOJ xiEcy95BIPIR2s9DzhS3fdm/q8iSkfUV699HAOKI02 FxFQmVnHp3gRthayIND2eZbtD+j1Z0AF1dcS+mDfROpp8ag2uBSG8VXYW/C9/hIaLFWSLv+y3pza7NDR bb7Z074s9tyuRykg+JdeCRZVVNf7k1F7ok1xgh+lDrD/xkjNzI/9Y0KGFhBjkoaEC1u27jtVrJfXcCpM olXzRer7UvL99Hpv1ClWG45ebkGld8t71+JdnrYH+7 dXXN8ySnmPpe7eEWSXZjf3O5s3fH/4ByAt/y2bH+MbXZ86bA986jH95CCOqC/bQ10NoxFsxbtM53iH35 8TWyJbg9XuaIlEi59Xd9n+P0texpfdwiv1sU1okQG0sRoCoXadFauiSyBWjGGs8y//ksdYY5Mv96Zko/ +pb88Gixc4JMIth+2swrOOejE6PBRwmMjQNrlop9/v BIm//9EVJSx0VtPj2VVR0H6xA83LMxF0txH5HB7GIrvGLzTyOy9Fp7hLIu4gxXmeKA4PAzLi2pD/A/fisher weir Phdu76V/VM39dTeYoHvjnWkFTsp7iRXMVfU1H24/ZNqyoY2GnqJGLO9XB2dkL9YpnKW6k888j6aEa9zF XxnWuhx+u6I0btsOkqTdj267s3BAP6nOdA1Gv3WKU2 wkJxZKNUKuDK65qWRX9dtxzG4xCxwIndnV12nwZkEniAWIZ4C/uy0K+7tBNQmkhM63SjA/WSyDMcv1Pr QiIsUuu34pe3i65Gt0pl8BS3hfOFIUkw0vtAppff61D8rjTw/uP3xxW2iVzlMotJkyDPF5bSRFsRfPRU 9gSzrLajHTsJir12/rURqQ3o0Yi3PB52gGjbF6AYuU nJj7t5eWdYj7yT/sSltOQmKnTi2DbRRjeeiNan2gTJAsn8xVbiWpI6c1otN2BDbdlKwBLCoshTc1mG5N O0oii4xN0Wkp85XCYMnZUs9dYQpx9o3lFxNjVv1ywnp9kojzrUqNtoz4WV4rbNh7tKPV75y5GHovQj6r CgryXTkIHKMup4jbWrJCBM/RizUiQhDqkJewo4QIhm 9DxnsCRkw+wpPcVshgg/ILGTXmF+aFvDKoAhcVSk7Qs9iHdT9aa0X02tAllPbBysVMvvlEcJHkUFU/YV FSSrV4hHoIKIw7pGaRMLW4FgIscBHA6DjOFffCyx+iawV8iq1NKgxYHSqCFQgVmoh1P/f4mQQmQD0IN2 yLIoT5HSIRfqu+YYVVjaIGJA+PPZCVCvWDNxDHMD07 [file] ICAgICAgICAgICAgICAgICAgICAgICAgICAgICAgICAgICAgICAgICAgICAgICAgICAgICAgICAgICAg ICAgICAgICAgICAgICAgICANCiAgICAgICAgICAgICAgICAgICAgICAgICAgICAgICAgICAgICAgICAg ICAgICAgICAgICAgICAgICAgICAgICAgICAgICAgIC AgICAgICAgICAgICAgICAgICAgICAgICAgICANCiAgICAgICAgICAgICAgICAgICAgICAgICAgICAgIC AgICAgICAgICAgICAgICAgICAgICAgICAgICAgICAgICAgICAgICAgICAgICAgICAgICAgICAgICAgIC AgICAgICAgICANCiAgICAgICAgICAgICAgICAgICAg ICAgICAgICAgICAgICAgICAgICAgICAgICAgICAgICAgICAgICAgICAgICAgICAgICAgICAgICAgICAg ICAgICAgICAgICAgICAgICAgICANCiAgICAgICAgICAgICAgICAgICAgICAgICAgICAgICAgICAgICAg ICAgICAgICAgICAgICAgICAgICAgICAgICAgICAgIC AgICAgICAgICAgICAgICAgICAgICAgICAgICAgICANCiAgICAgICAgICAgICAgICAgICAgICAgICAgIC AgICAgICAgICAgICAgICAgICAgICAgICAgICAgICAgICAgICAgICAgICAgICAgICAgICAgICAgICAgIC AgICAgICAgICAgICANCiAgICAgICAgICAgICAgICAg ICAgICAgICAgICAgICAgICAgICAgICAgICAgICAgICAgICAgICAgICAgICAgICAgICAgICAgICAgICAg ICAgICAgICAgICAgICAgICAgICAgICANCiAgICAgICAgICAgICAgICAgICAgICAgICAgICAgICAgICAg ICAgICAgICAgICAgICAgICAgICAgICAgICAgICAgIC AgICAgICAgICAgICAgICAgICAgICAgICAgICAgICAgICANCiAgICAgICAgICAgICAgICAgICAgICAgIC AgICAgICAgICAgICAgICAgICAgICAgICAgICAgICAgICAgICAgICAgICAgICAgICAgICAgICAgICAgIC AgICAgICAgICAgICAgICANCiAgICAgICAgICAgICAg ICAgICAgICAgICAgICAgICAgICAgICAgICAgICAgICAgICAgICAgICAgICAgICAgICAgICAgICAgICAg ICAgICAgICAgICAgICAgICAgICAgICAgICANCjw/pNExM1srzWAfjhI0A1rgGi2YDu8HRE7aq5HoNUUq SRqcitTmIhbOWqRvKRGsXhtDOer7JXfdLE4ZmPPlG4 XeB3LmNQbiWG4TOWWzXCGnoARrNZJqVGIdWzV1NHCbLZqwKO3KnWOrUDicIDAwKCCgLhYwTZViJAKgNH VlWQSkPYHUPJ2YBqXhD8HbhB44CQBLYs7+ZDbzqnVrRjqIHsX1SALqw5YqRIz8RH2UXYFqOmsmr1GoNB UkHPYGXMqxYS4LYQD4ETO4QBTxQp0PKHLwV718dxEh GO5OLy5SKgStTK5usc1JZGRwUKHwUlxVPbc8OXfoVL8LxRPlIWbVpk8gsmNoyrMTc5QohqOljDPOzhea ZP5kW7QtpLa4FYADQFXNMJ9iMVKbKGNdCW0gDSRzPFHcEhQlSPXBTY3CTMIwDUOezJCiBPNxLRBIHH8R ELerOAC7PlpkltTvaEFrDDupAX0UODKpfdGaWDGpRO BSDQo+Ea7YSN6iy5BkDLi7HkLpBI6nry8FXPlFCeJbG1D3nYExP1F2XSjmGq7RIAPfVZBvSHLzLZRYDQ qqKW6QSL7znmL1GJ5YfSHfBXVqCJTbaXNtLJg7C20qeNQuHGajUB4MDAQ+Mau+Lk3FPDZkLZHwDBNtZz MpGVPIFsPgF5GyF2FTl1MmY8YkWM06hWffbaQaZGsx DX0MDI0uXCCgIFTYQR9FaUZeiV8dvoQ6WJGnJTINOsUaT77rpOReREDkASLtBYRgFs7EUXOoU4RhvyJs rOakiyGwIZIvQGSELJ0SYNermxNlcSGsqJegRV05uUovXC7SYv5IVpIaYK0ruy6QnLKmIp3XALL6Cp6P JFVwZDDhIIWvDKQ3LOKpOlQmQLwbSCUsOIYaTZX9EO WuYLMsUW0KAnPfLTAcEEQ4NAfwLUUnVWUslo0KQVMnHTY9TwZ5NUAqEIVwUGUoLLuuUHHdCOMbCPI1VX HeXYDhPJ6ZGdGwARHzBRDtDsMmTIEoMKZkof0QRQVlKETsBoBhDWKcYOWhXRBaXWrfNOQlFLB5AmHuZK VqGJQcGH8KYvVdWBZjZTN8WAWfFDOnYQOcff7CWFAe VBRaWWf0ROTuQROwBFZjGJooGAXgCRQ2CZJcPYVeYGYnLP3DZuPaLLCjVWO4IPBcIYQlPZRrrm2QOASe WMIaMIo2QuAdWXEyZCBkLTwgGRQtRVLaKiC7FZAdUPKkGU4DVcVpSUTsJEX8GIodGQOaPZTshe9WLHKh BMNbBjN0OJXcUHBeNRGtYXrgQJElOVA4OPF0NWQfXI NqNI1HFeGaFEWkDMFgZCHgPPYxWJHnxh8JVWSmHKJrSIIhPAHmDAFaASXaIBjyPENuNDX9Hnu6OJMtGJ RuLB2TXgYiZRReKdtqNRSjEMKdBINhtx0STEFvTTVqLbDyCZDkQKBqIWUuDLorQCQpVGB6OXY7EZUsVA RyWJ3MBfZtEOKmPzz0LNGtYPQhSXUbpy9DHYEdUERl WAXpNKWfNNPgCIRzMGkaXNOsLHF4KNS7BWXyZLWcVF0QYxIfPHEuMnjbDQvhYIUgZMLzfr6XYQVkCTBj OPd0JAWeBNAtWCEeCKfxNVTpETJsHVB3XIFhHCQhRK8RDtOsZIBdMhTzRCmtILRjISNiab8IFIOlIOB1 JjVeLcXxEBIzKQHmUBomJWFuOKYzHPS8YMDhVQWcEK 6AMoDrTVXrPJWeVlDdKCGwJMNwyw1HGJMxPGS8PPWcHaJxGJUkOUAqURbyUTBdPKL6IVRmNFJvREQpCS 7MIxOpIEXrPJE7UFEuGDBcEJOcok8NBDOlHIR8LNV0TAQnYWInHKFbBXqdJHYvLQO0TIV9NFLeXEErIZ 9IUhYnZHZxBTL9KpAoPZLsSMUiwe1XLTJiEPG5PTAp QMAjUSTzYSSsKCvaPEAbOZPfUuVgEBUgVHXcND9UZeNjKHPnSTA4YJEnGTZhHVRyte5CNAOdYUM3ZIPl UmHvGQTqAWPtHKsaVBWvJQBmVBY5LADbHSYpCQ9OWpQaKOCrMXB2BpRbJWDcDZPomi5ETGFdIAS5DfN1 QwMzCCBaCZBsAQekJJHiZMAuDtt8DOEaHIOaNC6ZZh GoUNwfZOHSMse8NQaoY6f1CPA2Pt5SG8Wfi1YaSBRuJUVJZOcwGJ9ijjYaVYDdNy0XF4dKDrptQTOeP2 E5TXj5IFr2CUv6ImemZMRdTZUkYCN6K3GmMY5vEWC9JrMrURqcPtO8YBk2NXMpOjS4HWJ9SFKiCZMyJj AePqNmRP6KYt7VJxK3UJM8iDImHc3QTJJmFSXDQwBuYQ5FDAv= ID Date Data Source [id number] 06/16/2021 05:17:00 PM EST [facility] Name Value Range Interpretation Code Description Data Arabella rce(s) Supporting Document(s) Pre-Albumin 13.9 mg/dl 20.0-40.0 Below low normal [facility] The above 1 analytes were performed by [facility] [address],[facility]#: [id number],[place] [address] ID Date Data Source [id number] 06/16/2021 06:21:00 AM EST [facility] Name Value Range Interpretation Code Description Data Arabella rce(s) Supporting Document(s) AST 18 IU/L 15-37 Normal (applies to non-numeric resul ts) [facility] Sulfasalazine and sulfapyridine have the potential to falsely depressAspartate Aminotransferase results. Baseline values before medication administration are recommended. ALT 48 IU/L 13-56 Normal (applies to non-numeric resul ts) [facility] Sulfasalazine and sulfapyridine have the potential to falsely depressAlanine Aminotransferase results. Baseline values before medication administration are recommended. Alkaline Phosphatase 61 mIU/ml 50-136 Normal (applies to non-num madiha results) [facility] Total Bilirubin 0.70 mg/dl 0.20-1.00 Normal (applies to non-numeric results) [facility] Blood Urea Nitrogen 6 mg/dl 7-18 Below low normal [facility] Creatinine 0.65 mg/dl 0.51-0.95 Normal (applies to non-numeric resul ts) [facility] N-Acetylcysteine (NAC) and Metamizole em ve the potential to falselydepress Creatinine results. Baseline values before medication adminstration are recommended. Patients undergoing treatment with phenindione will have falselydepressed results. Patients on phenindione therapy should be tested with an alternativeCREA method.Toxic levels of acetaminophen may lead to falsely depressed results forpatient samples. Glomerular Filtration Rate >90.00 mL/min/1.73m2 [facility] GFR Reference Ranges:Normal Function or Mild [...] of Health and the National KidneyFoundation. The [place] method used in calculating this result is traceable to IDMS standards. Glucose 79 mg/dl 70-110 Normal (applies to non-numeric resul ts) [facility] Sulfasalazine has the potential to false ly depress Glucose results. Sulfapyridine has the potential to falsely elevate Glucose results. Baseline values before medication administration are recommended. Calcium 8.1 mg/dl 8.5-10.1 Below low normal [facility] Total Protein 5.4 g/dl 6.4-8.2 Below low normal [facility] Albumin 2.2 g/dl 3.4-5.0 Below low normal [facility] Sodium 138 mEq/L 136-145 Normal (applies to non-numeric resul ts) [facility] Potassium 3.5 mEq/L 3.5-5.1 Normal (applies to non-numeric resul ts) [facility] Chloride 106.0 mEq/L 98.0-107.0 Normal (applies to non-numeric resu lts) [facility] Anion Gap 7.0 [facility] Carbon Dioxide 28.5 mMol/L 21.0-32.0 Normal (applies to non-numeric results) [facility] The above 16 analytes were performed by [facility] [id number], ,[place] [address] ID Date Data Source [id number] 06/16/2021 05:48:00 AM EST [facility] Name Value Range Interpretation Code Description Data Arabella rce(s) Supporting Document(s) WBC 7.02 x1000/ul 4.80-10.00 Normal (applies to non-numeric re sults) [facility] RBC 3.24 x1Mil/ul 4.20-5.40 Below low normal [facility] Hemoglobin 8.9 g/dl 12.0-16.0 Below low normal [facility] Hematocrit 28.4 % 37.0-47.0 Below low normal [facility] MCV 87.7 fL 81.0-99.0 Normal (applies to non-numeric resul ts) [facility] MCH 27.5 pg 27.0-31.0 Normal (applies to non-numeric resul ts) [facility] MCHC 31.3 g/dl 32.2-37.0 Below low normal [facility] RDW 16.1 % 11.5-14.5 Above high normal [facility] Platelet Count 219 x1000/ul 130-400 Normal (applies to non-numeric results) [facility] MPV 10.5 fL 9.4-12.4 Normal (applies to non-numeric resul ts) [facility] Neutrophils 69.6 % 40.0-74.0 Normal (applies to non-numeric resu lts) [facility] Lymphocytes 16.0 % 19.0-48.0 Below low normal [facility] Monocytes 9.7 % 3.4-9.0 Above high normal [facility] Eosinophils 4.1 % 0.0-7.0 Normal (applies to non-numeric resu lts) [facility] Basophils 0.3 % 0.0-2.0 Normal (applies to non-numeric resul ts) [facility] Immature Granulocytes 0.3 % 0.0-0.5 Normal (applies to non-nu meric results) [facility] Nucleated RBCs 0.00 % 0.00-0.20 Normal (applies to non-numeric r esults) [facility] Abs. Neutrophils 4.89 x1000/ul 1.92-8.31 Normal (applies to non-numeric results) [facility] Abs. Lymphocyte 1.12 x1000/ul 1.20-3.70 Below low normal [facility] Abs. Monocytes 0.68 x1000/ul 0.14-0.97 Normal (applies to non-nu meric results) [facility] Abs. Eosinophils 0.29 x1000/ul 0.00-0.76 Normal (applie s to non-numeric results) [facility] Abs. Basophils 0.02 x1000/ul 0.00-0.22 Normal (applies to non-n umeric results) [facility] Abs. Immature Gran. 0.02 x1000/ul 0.00-0.02 Normal (appl ies to non-numeric results) [facility] Abs. Nucleated RBCs 0.00 x1000/ul 0.00-0.02 Normal (appl ies to non-numeric results) [facility] The above 24 analytes were performed by [facility] [id number],[id number],[place] [address] ID Date Data Source [id number] 06/16/2021 04:17:40 AM EST [facility] Name Value Range Interpretation Code Description Data Arabella rce(s) Supporting Document(s) Nursing Note [facility] OAWYJp5uCuGYRaBx22/WIHjbCMIgx3IiRWtvIGv6KAhpJHAbV0DhBBR5cO0vCWQ0BUlDJkMoKsXlSXF0 [facility] [file] V4Qdr9NJS5L5A1CFN6Ix8sVJJWFl4+ZRtfnKMvrSdgKWDTWxc8FdYUVaSdHD7BLJm= ID Date Data Source [id number] 06/16/2021 04:14:00 AM EST [facility] Name Value Range Interpretation Code Description Data Arabella rce(s) Supporting Document(s) Care Plan [facility] KGMZIb1nReAHMoVq34/ONUieBUPfg8VvFHiaYYv5GUkmYPZxX4SyPZQ8nP4sTNR6NNiNXjPwFtHgEDD7 lbm [file] Rg0K ID Date Data Source [id number] 06/15/2021 11:18:40 PM EST [facility] Name Value Range Interpretation Code Description Data Arabella rce(s) Supporting Document(s) Progress Notes [facility] EGQXAw1zWgQDEnEh25/YHFgoAQLmf7FyXTtpIFg3GLznEMDsC1MiKQH7oL3tXAR9LIrWJxDpKgQwRJR2 lbm [file] 5TslQbZUJELiD7kgGcFoRyWBLWWIB2gpk1ZPhw+[facility] [file] 5YHvP2SQI8fKNlLi6SSgCnRgwBRoSaGT8CLSv= ID Date Data Source [id number] 06/15/2021 08:06:52 PM EST [facility] Name Value Range Interpretation Code Description Data Arabella rce(s) Supporting Document(s) Care Plan [facility] COISMx5kVhWOPpNz37/CVXpnFYBlx7EyBBnuGCa0HJqnJBUbK0EbVUS9zE1tGYG2CZqKLmXtFnNtMDF1 lbm [file] F6BoL5PR8uVDKJPn7+JZetqVPogEuySBQRAqXxWDQ4UYubVEUNPm5S ID Date Data Source [id number] 06/15/2021 02:50:21 PM EST [facility] Name Value Range Interpretation Code Description Data Arabella rce(s) Supporting Document(s) Nursing Note [facility] NDYSNx5wKsJVIfCh89/WMMvvWODwe4GwBPyhMPl8TZukKPQtD4PtCDX9jI4aCBM8ZPhBGyMjImWuEQX1 lbm [file] QhEcUXt1HCqjONMEQe6W ID Date Data Source [id number] 06/15/2021 09:34:41 AM EST [facility] Name Value Range Interpretation Code Description Data Arabella rce(s) Supporting Document(s) Progress Notes [facility] GDMGCa0bPdDVDmSg28/XYIhlLGSww7TpMQibEVd3XXzhJSGbO4BxPTU7tQ8uFVF4TVpNWcHyJpEzTHU2 lbm JhDpsYRcHjTABhCbzPVeOpBHzlYkhiuHRsGF4AaRF8SXJaS49xMCWnNEWfS6EeMKD3JaO+No8KARAroE TaTZ4GIuaO8A0yk5n6MC/hXN2Yva5PUKOTO2M/4kob7rXASUkJ9x6CMwAT2nFn9IybZ8BboB3UN7Iyp2 RQYWqvIy4gksX9yrzhTFOKmkx581wHLlJBMw37uyaQ Jhtn3J2FQ+NUicup+CBafTzVb0hN4b/RIPCAkomMzQPVT9+7+5YY5pniIM/oF8BJyDjxAqf5drTERpfz 5yo3Ke493HsfnmATPxwc3DUayp6OieRNDFlSxbDpIrXsn57KGlMIc5jam0ZyV+D8xhTpei9lWmfKTrB0 cBLISYuSwlgc7QtGOTITHRvEoATULIbYsQTk21QAU8 [file] NmO8UOYpKcSoZOPqLGG5WjGtWE9VLv6ZQrB3BAF7iCQdRb5VLTSjFEcJDfGlLC5EKEi= ID Date Data Source [id number] 06/15/2021 05:10:46 AM EST [facility] Name Value Range Interpretation Code Description Data Arabella rce(s) Supporting Document(s) Nursing Note [facility] QZKEEj2nJpHESeEi51/OETnxVJTdu4DqZDjdKDc6KMxfZMVwS9TeUBS0kW4dWUU0WQpTRkQiOpHoSEN6 lbm JwCvfECkZwEXYxQxzXViJsBEwoEqtvtFSnAQ5QdAU6VVMrW20sLCKwZIDdG2PoDDNzObG+Rv5LPQYjwA AgSX5HIknQ1AcnS+NGEH+y4F9zAiqVZ4jP2c3vCIZ7aef1gGAxEkM74QRQbQ0UMP9V+hwEkp0kvFl3hZ BKFgLMe35z97kXtoExgr7CjWqVTQD/xn1NeaV5Jr6/ YE8bdMZu0PTmEpmNqTG2HuOhIJ/iLKvbhsKenPaB6WZ8MthEyLOJpU9jn9amVp10pD+lauQrK/YDeDOE 3s2HNnpC4Pbxj2dmCK3SbIt6xtF3e/VHMEmENz5zRHY4uEFGpycyDYLq2xEJmGEkdYON8is86lgTAQVu SqoGjun9sY1xfqeXPW4ruhVuEDqfFXAjXPcQiHJL5I 0rtydSQg50Q0wmdBpQpldLCkcjtd5FxA84LqtzKhbZNZnLyC09cCXtlJMzFUXdD2UeX8eIwrB6xesIVl +tyffD/brTTgQiDJV3NxJ0BGCgwOH8rNDughs0VBMWFjPT4LadXQd1gbnrCdB1BrcvP/oOwQym5cyD+S Ul4ebubNl/RsZqiF1Qo+XqJwGY6PC31LpvKaAc5Fgy X+PFPJRUOP/0pXXvBhULpc5I41r0UciJc4/D8Oz5/RlJ0HM7JTo7i/bYuUBPocN1bKwZV4hyiOkPb3vY /UFwJ9Kj0K/FNB/6pf6WmG11UD/NiDVTCkAiQrFsL89xtmj47M4buij53PUm1Cf2sczyuRr9D9j45Ukm Kq9AN1PwOG0++ot6XOcKf5z+e2SkWFnID2dm+fglyk 1VkDXi+6UT8yknDXj20xEoHu573DU+vToIPwKlWo/N63klVDO4AZTWUWgHCpVH9sMn3nPtvNXqRXtpVK ml73Zfzb7Y7M3P7t1aQOH/hypRNdkl7l+zxiAZGPFhrR31PvnSftoeTZcFuMUdKOu2tWC5azXypV9Zuh wt8RCLLgdQnOA33PERNMKWWYD+ANqSXSPz2I5E42d1 [file] avpDjfnhM7jtOfRAuP1OAKQdmPqBxiIiYGSKn44EykVoISRDUjT9wnDsZjLvUJDHOAP6zry2ZBgn+José Miguel [file] jCPtMe3TSxCdUivMEkRsHC0ICYr= ID Date Data Source [id number] 06/14/2021 11:04:53 PM EDT [facility] Name Value Range Interpretation Code Description Data Arabella rce(s) Supporting Document(s) Care Plan [facility] CLQIWy6tSsYJVjPf71/BKNfaOTSfh5CgAVdzCXj2PZqbIMWtZ8EjEIQ8hC4sKVN7CLqDPoFvGiDjZGH9 lbm [file] MTgwOCAwMDAwMCBuDQowMDAwMDIyMjQxIDAwMDAwIG 4BHaFtHURpNbP1AEVaCIKnWCZsif2ZOPXgNANkJnd6LdRlHTKeGCJaFEdxPMCaDURbQANwHFNuJEUcOZ 4IGgMxHArxRYPOAva9ORqmJ9q6MPJzAW5RB4Mlc3EsDbcgRXMRBVttSN6pdvArQTImVv3IK7bVKlasMS UoWlI6XWNqDWGlTtP8DNdwTzGvKNN2BcFhJyBnQM1i LPTlPBHwNxMiIRAjT7AyBPffRKDoRJP9Sae3GjWpTuUqBdVwVC3RIj8NOnE4CKP0zACfFr9HEwEhKLFP YcZgEE8QAGo= ID Date Data Source [id number] 06/14/2021 07:02:22 PM EDT [facility] Name Value Range Interpretation Code Description Data Arabella rce(s) Supporting Document(s) Nursing Note [facility] KSTSHc2xUzWILrVd36/ABCuhAFYpv0AeUNacGVa7FElpNDCxN8VtXFY8iT2nZDN1MDjDSjOtHfXbPQD5 lbm [file] ZEQtUxJV4KKQf= ID Date Data Source [id number] 06/14/2021 01:09:13 PM EDT [facility] Name Value Range Interpretation Code Description Data Arabella rce(s) Supporting Document(s) Care Plan [facility] INEJSl2gCsWPYlHs10/DREfvOZClq6SzJXizKAl7VKsyZTUxS8JzYJJ7wW9iRCY6JOxOHdVvQnRzGIR8 lbm [file] cytology laboratory manager+7BmVGceQJMmW4wGLb9+33/7NFDxkZBBjx9M613 [file] ICAgICAgICAgICAgICAgICAgICAgICAgICAgICAgIC AgICAgICAgICAgICAgICAgICAgICAgICAgICAgICAgICAgICANCiAgICAgICAgICAgICAgICAgICAgIC AgICAgICAgICAgICAgICAgICAgICAgICAgICAgICAgICAgICAgICAgICAgICAgICAgICAgICAgICAgIC AgICAgICAgICAgICAgICAgICANCiAgICAgICAgICAg ICAgICAgICAgICAgICAgICAgICAgICAgICAgICAgICAgICAgICAgICAgICAgICAgICAgICAgICAgICAg ICAgICAgICAgICAgICAgICAgICAgICAgICAgICANCiAgICAgICAgICAgICAgICAgICAgICAgICAgICAg ICAgICAgICAgICAgICAgICAgICAgICAgICAgICAgIC AgICAgICAgICAgICAgICAgICAgICAgICAgICAgICAgICAgICAgICANCiAgICAgICAgICAgICAgICAgIC AgICAgICAgICAgICAgICAgICAgICAgICAgICAgICAgICAgICAgICAgICAgICAgICAgICAgICAgICAgIC AgICAgICAgICAgICAgICAgICAgICANCiAgICAgICAg ICAgICAgICAgICAgICAgICAgICAgICAgICAgICAgICAgICAgICAgICAgICAgICAgICAgICAgICAgICAg ICAgICAgICAgICAgICAgICAgICAgICAgICAgICAgICANCiAgICAgICAgICAgICAgICAgICAgICAgICAg ICAgICAgICAgICAgICAgICAgICAgICAgICAgICAgIC AgICAgICAgICAgICAgICAgICAgICAgICAgICAgICAgICAgICAgICAgICANCiAgICAgICAgICAgICAgIC AgICAgICAgICAgICAgICAgICAgICAgICAgICAgICAgICAgICAgICAgICAgICAgICAgICAgICAgICAgIC AgICAgICAgICAgICAgICAgICAgICAgICANCiAgICAg ICAgICAgICAgICAgICAgICAgICAgICAgICAgICAgICAgICAgICAgICAgICAgICAgICAgICAgICAgICAg ICAgICAgICAgICAgICAgICAgICAgICAgICAgICAgICAgICANCiAgICAgICAgICAgICAgICAgICAgICAg ICAgICAgICAgICAgICAgICAgICAgICAgICAgICAgIC AgICAgICAgICAgICAgICAgICAgICAgICAgICAgICAgICAgICAgICAgICAgICANCjw/yNAhQ8vsyDQmfa C8T0kgDo1UXi2OYW6bl5VeRCXgLCgkfhHpEeyELlSlXYBuIfsXCku3ANawGF7UoULsR8KhX9RxIIelBU 0XTSNpWIOyvOBzPUDtMJJaVwQ2HVSmTCegKO3IeNKe GNpxBZYvLTIcErIePGXzVD7DSWWeK444tfOmEo0OCm5LChRnZG8drr0KSqevYUStEfiPEdj5QFyoGR3W wWRynHTsDIYmYEZPFpYxN1nna3QyBxkfLKQXSHucAS1Fv1DkwLPhYFc+Uo5LJY2oz6QyEXqnCKLwBD8t aa7LUXvHAfLrT1DurOznYDGwooFyQTanvcUdrZIPiZ ItH7ggNBB7iVBkZAHKKXR6SAMfArFbHfAkIQAoBUgoKWJGJMwXTrKcJ8Vej2WqFrJ6DIXxEnSqVOueZQ LqIiB7SJ67fDsmKA4DNXFfXCKiWD10LIX5BPDkIt3XZy3KKmGwUZ5cgp2YOpfuKNJnItkEEtp2BGitTL 5IjHNdK4TmwCAhw2aNSkLdJ0OIOXL3VJAfWv0XZZYl NwUkSMGrLAnqKK5zXNRrYYBTuIcqhuR3LF2OOS7cogHjLX5PHdWrLf3tAa2FQpOmR3HxG6TtNUPvYMJY AZphUU7WNGcoAE3oQQ4Hj6EBvLFxjC9jgb5ZQNFiOGDtSegpqc4LGulfU9Q0aAbxBWHdGrqnJHOEHXnj HK4UHRBuBQI8DWVjCuTpJJWCYqYgC78wUC6EN0Izn7 0sIbW4ZOKlYqYwXTfdIE32iEwwrmRcfJNzsOqzJV7ZLk5+DQplbmRvYmoNCnhyZWYNCjAgMzANCjAwMD LxMPTqQNMiIdH5DiCjEl0QSTSiWVYtYSZiNfIkLKNgFKAsQCtlGLEjBKNbWGOkTLBuSLLlKV5QLvJzNT JoMhD5YuPkZZZtGEFywe2EDLDlTXBeKQX1VzVlDOVf XIMbNWofAANlMEJtAIKkPHVwPRFyKW0XLjUsDZIiVCMmOPYiVRMvVJWohr4ZVSXlRCTnPiJsAJVsRSWk HJIyFNmpHPCgSWQdZfT9MQYdSVFtUX4ZAsQvAXPhMIKuHYDhCBItDJGcmx5PKQXgCCMyIJW3SpMvNVCg NMJhWPbhIWPmTZS0YFhmTNHuENQyCP7ZYhBcIWJuIO H2XoOcTFJiQEXwum3KPZNpFHPrJZmbKIYsBNScZBSyBVaaARAxTWM7SDFfRLDdTHKuCZ7WHsFtYUZqUJ psIwCoZXLtIKXnew1CXFGgDMZvHIA2NMBpKIJcIRPnOPhbBKXhWAR8Zfp5BSTrNHIyTJ3ABfJnJPFuRK tuZvikJTSkHDSeum9LFCTlZADfKWE1CxTqFKZnSFAd YTqjNVGrDWGiXTS9IRZoDSMfNB6AXuUoEHEkInBaJTMpVFRhPZMmdm8MXMUbOLJyHQN8AHTpDSQiUBIc EJojJYKqAUReMYBiAVUcBFReAZ3JQrQaWFLfEuJ8PsTyMTPmHIQoiy2TYMUnVBUdFUm3PSQxYTOtNSAg FMozEPCsJGLcMtCbPGIlKXRbIA1NZiIgKNLoErG4Jp FyUVLaFFXlcc7OCWMuIBFeGon8QaKpEAKkKYCeYAiwKGKdGPAiWLh9ASDuOLAmPO3ZWoSyIRsmLRPNSi x0DXalT6p8IAWfXB7NJ0Ujh6SzRkleKMILDJenTC8ukkUxPAKiNm7TJ8hMUzg7PDTlAAIyWbFlUIFhHY LgXnYqGvPdLKXfZ8A4VOf2VB7rCIFyDyIzFIXxLTFm XMTqNxZrTIQ9FAFkWkKnWRKcWwQ6ZmReRV9VKk1WShK7TAH0bERkTb1MPwWnGhGFObLmJC4MKXv= ID Date Data Source [id number] 06/14/2021 10:40:29 AM EDT [facility] Name Value Range Interpretation Code Description Data Arabella rce(s) Supporting Document(s) Progress Notes [facility] KUTYJl6vSyLYOaQs69/OQUniZFRxr9MaRZeuKOn6WFxfBULqO9CwNYS4yR2cKFP1SFwMPzQuIwSmFIW9 lbm [file] AgICAgICAgICAgICAgICAgICAgICAgICAgICAgICAgICAgICAgICAgICAgICAgICAgICAgICAgICAgIC AgICAgICAgICAgICAgICAgDQogICAgICAgICAgICAgICAgICAgICAgICAgICAgICAgICAgICAgICAgIC AgICAgICAgICAgICAgICAgICAgICAgICAgICAgICAg ICAgICAgICAgICAgICAgICAgICAgICAgICAgDQogICAgICAgICAgICAgICAgICAgICAgICAgICAgICAg ICAgICAgICAgICAgICAgICAgICAgICAgICAgICAgICAgICAgICAgICAgICAgICAgICAgICAgICAgICAg ICAgICAgICAgDQogICAgICAgICAgICAgICAgICAgIC AgICAgICAgICAgICAgICAgICAgICAgICAgICAgICAgICAgICAgICAgICAgICAgICAgICAgICAgICAgIC AgICAgICAgICAgICAgICAgICAgDQogICAgICAgICAgICAgICAgICAgICAgICAgICAgICAgICAgICAgIC AgICAgICAgICAgICAgICAgICAgICAgICAgICAgICAg ICAgICAgICAgICAgICAgICAgICAgICAgICAgICAgDQogICAgICAgICAgICAgICAgICAgICAgICAgICAg ICAgICAgICAgICAgICAgICAgICAgICAgICAgICAgICAgICAgICAgICAgICAgICAgICAgICAgICAgICAg ICAgICAgICAgICAgDQogICAgICAgICAgICAgICAgIC AgICAgICAgICAgICAgICAgICAgICAgICAgICAgICAgICAgICAgICAgICAgICAgICAgICAgICAgICAgIC AgICAgICAgICAgICAgICAgICAgICAgDQogICAgICAgICAgICAgICAgICAgICAgICAgICAgICAgICAgIC AgICAgICAgICAgICAgICAgICAgICAgICAgICAgICAg ICAgICAgICAgICAgICAgICAgICAgICAgICAgICAgICAgDQogICAgICAgICAgICAgICAgICAgICAgICAg ICAgICAgICAgICAgICAgICAgICAgICAgICAgICAgICAgICAgICAgICAgICAgICAgICAgICAgICAgICAg ICAgICAgICAgICAgICAgDQogICAgICAgICAgICAgIC AgICAgICAgICAgICAgICAgICAgICAgICAgICAgICAgICAgICAgICAgICAgICAgICAgICAgICAgICAgIC VwUCNpYVLzFRElESArVJWcWYPkKRSaEQDlLDh5M2yoCWKuMMHuJX9yYRe1Ms3+CDmISrZwMEJ2hsVwtS 5DQK1sk8VcSOqmLDKgj8IvHCv2DK1KXVHaMQdnUK0B HPwefo5IEVHjUEIuqFJGv2tnTyFkXXQ9PWXsXcopDF5WUQSgS6gkvbPcYNJcKTGCDBikDAOLCDpvURCU IT1VKyQaX9TgmD42IIIYUf3+QUpyqgImDbgGTsX4PAEvj3UjNDr9GV0XYXByUpgag1WkDqboDCDKQWqe UF6EYAA2TVF1AEErPm0XPSViB016wxChOC9DFq4NHz MsOL0egk3MInmzGZQsIoqFMae6HNdhYI1PqEAqGVaRmj9vqiLiuyBHe2KdwxMsxIVIuniopQDcNKNQf5 hbYBXDNyFlJWYnSTFmYh7tFDQhRXY9OxUdBSRLZR7NPJCnKHIuxXRfFVKmPFCYAE2HDCeoPFW8Dpxpuc HknUFqJFvcFC2FQCMcqqSaOnztWVICLXi+Am0VIG1p k6VqZIsvTAQwCV8czo7ZFZvCZzXwE6D8gFNjF4D0ZFmvOx2QPJJpIUZbOqAeFNRJTRzdIR6PPK3fucJ1 KT2LiGPdQPBcTWGqjQBvZOy1V06bqYXcWRvaKK0MPZV+Mau+Ll9YVOFmHSAcSRPrCkBxUZELBgMxR9Zs F4CBt7ImA2QnOF90kHwjduNhPNgpOA9YCM5pEMVhYT VGQY7YhJQgpT4duyHbQeXmDASCLlTmR68ywFLeVFSuXUC2MSVzNg3GUKDaC7KkwtIodFoucmNuLFEhPP WMJE0LOOktbfXwhIKlqNwcQX50wHsjIV0PFf7RDgZsXB2pgp7EqAAiFo4QKAB5BL7VYLArNQYqUYDbMR C7GRStUaBmBHgoFZSiTBXqACZ9HHRsXFRjUN5VZhFs CPHtFfS0GowxOFUmXALxgl0GWBGeGPVnZTa5IwMyJRPlRJCgEBtqTYGmGJPkGQG7BSRuQWMoWN5QPlYk HPWsYYDnZoFpRZXvJJVrof3PXNXkQVYzAyWtERZsPLYyIVQuRNtzVLWmQDE1SCjzDJDjXVMyRA5FDeEm OJZvOFHcVRWcSYXgERHgbl0AEYNeTBFzVnm1UZLxMT JfBJYsYBleSZSnJRI7IOf7DZDzWUPbQQ9JZiVdYZCpDWgpXAOeBAOfFGXefg6GVFCgGKGrAUL3LlLrIH CfFTHyWJuoGHLbUHO3NDI3WRVsHWOeCV5FCwZmNDXeXMokTMOlRJWiVWVxgm0XPGNmRLTcSUF8FGXzHI ZrLSEpLUpyWYOxQGS8Jrg3MJFmKXHqWU6CPbZsCMAr FDW8CkZjCVEoGCWvuk1PAZXcKGHiIHjtQsCjAQGuJPMuDKwjBSXkHOUsOAF0WCBkTVPlCE6BJjCtXZLw EoygQKKsFRYsQYUmii3JFXQwPIMyNnu5GuZwMNNiEDNrRKbuMZXsPFV4IPo9EFEoGSEnYI4UKqSjATBx Qra1FxOnAOPvOVWkow2DHUThDYXmUGB6ObFfJFCdEZ GdHRkjJVYdAQE4UCS8HTBqZKYbWQ8FRkOoWZWgYgz6SMyiRQNtQPLwnm6AWAAuKGUcEBs4IePeAMAyHQ UrNOhzNBIgTCWoPIP2LXXzJRFiWL0FGsQlUSXeRsGsKOPzBSPvKHMyxz2ESRUaBWTwNJQ4KRJoDONgBJ JoCWaqQVHtCQE7PBGzAYJuOYWtIN2OYpSuHAUmPxKa YHkpBMMfSZXfbq5JKXDkOTApRtP2LZAkEQPqETSfPLzmSEUnMMH3VGKaTNMpEZGxMY2AJrQiNPUoYrA4 GLviRMRqDNOsrp8TPRQgTUDyBoSvIaUnJMLoFQZpPKyiDHKqTKG7MBxuIFFyKAXmDO8NDgKuKDRtSkd6 USYhENWwPOWsja1RZVYlWHGeDCY4TiLhZKHuGZIqVS b8orUizFBfXTc0SK9XD7ZuevPsPWDXGb8Hd503LMP0YLToXb1KI2caEu2qDLUnRERLKe4AJKd4Dmz4TD OtLmV3LQt3JCt1HlUaOFIkQAZ5UoV0YbxpWWS+AOb3MVh7DzV6UIpqPJR2MHx0SCLsWQY2AhAcEaZkZO N7FY7sNXISFy5+TUopfPFqpGknOPJMQhM9LvX0DXytHMICYr0Z ID Date Data Source [id number] 06/14/2021 06:08:51 AM EDT [facility] Name Value Range Interpretation Code Description Data Arabella rce(s) Supporting Document(s) Nursing Note [facility] VNDTDs9iQvCHHoKe31/ZGSziDJQyv6XvKLzwGLb3QRxmGOFxL5BgFRM8eO6cWUM9XFoESuKmWtGrMVC9 lbm [file] Ne4VShV4NoqAYiMxIQ2QHGq= ID Date Data Source [id number] 06/14/2021 05:18:23 AM EDT [facility] Name Value Range Interpretation Code Description Data Arabella rce(s) Supporting Document(s) Care Plan [facility] WBNSWh9kHsBCVhLf86/NSBkkCOMpu2SuFApkQZj2BQvwQHPmT1BaCGC8cQ3vTHX1SIlMFjXmPaFrLLO8 lbm [file] AgICAgICAgICAgICAgICAgICAgICAgICAgICAgICAg ICAgICAgICAgICAgICAgICAgICAgICAgICAgICAgICAgICAgICAgICAgICAgICAgICAgICAgICAgICAg ICANCiAgICAgICAgICAgICAgICAgICAgICAgICAgICAgICAgICAgICAgICAgICAgICAgICAgICAgICAg ICAgICAgICAgICAgICAgICAgICAgICAgICAgICAgIC AgICAgICAgICAgICANCiAgICAgICAgICAgICAgICAgICAgICAgICAgICAgICAgICAgICAgICAgICAgIC AgICAgICAgICAgICAgICAgICAgICAgICAgICAgICAgICAgICAgICAgICAgICAgICAgICAgICANCiAgIC AgICAgICAgICAgICAgICAgICAgICAgICAgICAgICAg ICAgICAgICAgICAgICAgICAgICAgICAgICAgICAgICAgICAgICAgICAgICAgICAgICAgICAgICAgICAg ICAgICANCiAgICAgICAgICAgICAgICAgICAgICAgICAgICAgICAgICAgICAgICAgICAgICAgICAgICAg ICAgICAgICAgICAgICAgICAgICAgICAgICAgICAgIC AgICAgICAgICAgICAgICANCiAgICAgICAgICAgICAgICAgICAgICAgICAgICAgICAgICAgICAgICAgIC AgICAgICAgICAgICAgICAgICAgICAgICAgICAgICAgICAgICAgICAgICAgICAgICAgICAgICAgICANCi AgICAgICAgICAgICAgICAgICAgICAgICAgICAgICAg ICAgICAgICAgICAgICAgICAgICAgICAgICAgICAgICAgICAgICAgICAgICAgICAgICAgICAgICAgICAg ICAgICAgICANCiAgICAgICAgICAgICAgICAgICAgICAgICAgICAgICAgICAgICAgICAgICAgICAgICAg ICAgICAgICAgICAgICAgICAgICAgICAgICAgICAgIC AgICAgICAgICAgICAgICAgICANCiAgICAgICAgICAgICAgICAgICAgICAgICAgICAgICAgICAgICAgIC AgICAgICAgICAgICAgICAgICAgICAgICAgICAgICAgICAgICAgICAgICAgICAgICAgICAgICAgICAgIC ANCiAgICAgICAgICAgICAgICAgICAgICAgICAgICAg ICAgICAgICAgICAgICAgICAgICAgICAgICAgICAgICAgICAgICAgICAgICAgICAgICAgICAgICAgICAg ICAgICAgICAgICANCjw/eDPqK5ilmFSuvuJ2C8tzCm8ASr1JHG4dp9CeIDSjLUqvrrPrUpdXNhBlMORz YyyLVte0EBxdEM5KtXPgT3BfE2GoZTjrBS8YGNNsBO HkpIKfQBYrGHVrCgG3PUSgMPexSC7LoHFxOLqoHBBfBQUeQfRsVAVtXP0EEFNqI876wlVcQt6EIb7DWn LqGH8few9EMzLsKLNvHmdXZtd0TYgoPZ0IzAGzdYRtQnNyEBUKEbEeH5pbl6MhIqFbCJRNTKneBV3Oy3 VudCAxDQo+Bd8DYM4dy6BuEIwtKxTsXD3sac1TDYvQ QaEmC3RuoZasXARzmeBhWSbsqfAtuLSWgNAupRNuGdPil6XqRHWcQDLLTGP9EHCcGaCcJzHbPVNvPPwx ELLFFCcNDcCbS8Dho6GvLoH9ICUzHwMbCPgbJLIsGmM9BT77oVweVM3JRIWxEBQhVV93YISlAIWtEz3Z Zh4EMsKoPT9kxn8QSkXgUQHgBdwWDma3OIamHN8NtU QoA9XpcHSxm5rDDuGdK5LNZMAtXEFaGy1ABJVrGjFxFTZhDKnaJQ5aDLHdBAJEsNwokpV7RS2SJO9nha VtQM5MIjIkZa8nCm1HQfFaQ4KuQ8UxPAPaPCPBRAxzSP4LDYgrOT7fDQ0Sh0ONkTZlyO9ell0BUBAyXC PfWnivhh9NIwujF3Z0pSvfBQQgXsMtRFNKHUcoQR9M VGLfSSH8PNHnLYRqVSLJCmPgW59iMI8KT2Shl70tYlH4CAJaTnIsEQmlEQ00iUkwleNdzKCueMxdTM5C Cj4+IArfhtDqQabBKcizFYQAIuRtNgLGSvZaZHAdJUOlEYUfNlH4RiJfVr4QQDMhFQMkILBaAkYnVXQg WRGiQGhhKTCvBESaGQUeNYKeBHOqTW3BRmLlTIYjBD S6XmnpJLAqOMDctt8QUZFkBLMpMWD7ToVvXAXkTWFiDLfwMXFdPYTpGBkmFJJjQRSvNR5TJgDdMCNaNO V4HTXaPFImVRIcav3WGCOmYXQtNaAsWZQkACJqRZOyKEugMSIxZDPaQQI7GJLmWHPbDD4FVnAuTGPbGX W4RPpqKPXkINBspz2EGRIfJQFjYXl6YDPdLDNcUCKm RPkhKMEeQYW3LRp5KYReDXKbGJ3XIaEjKEPzQJMoQBAhYFVmREWrcr3BXMCaHCWsDuQ0VMZqPCZfSUAs FUdzZYArYSK8LGZ5IEHdUQPkNL1LPiRuKPSbSGt0RoJsTWZqPBSovt6OKRPvUONeYZU7MYYwISBhBUDe CFxmWDVnUED7Ipv3KABhUVNkJM2JZzVmFQMjPXh6Ep jxFLMvMQTned0KHNYfIIWgVIb7UVZyZQRjIUOsRXgrIOMeJZYqMqY9BMMpZMAbRB0SVpKjCUNkAvP0Mb NdOBBhUBKswq2ILEBjXWSxCYPaPRXeSYAnMHOwFBulSKRpSSBbOGYfUCGiWHJbOQ3MMtHbNKUaEhIxPg dqOHTgAXYjuo4STKFsNTSvEgBkPRJwHORfJXQjJGdb JZJkWVE5DRhnRUQvDGAwEY7ULbMhWSPiKfbaFyQzDXSjFFIxgv5GMDDvUXStCPMtEqMaGIEqNFDbIWvf LLGsZJT6NJwcTKLnGGPbOU3CRwFpQQQxHXCeBDAgUBOxPVZzop4VHJEoCJV4ZWB2MZPgKRBzFPEeEEtk NWPgQXCkUTQoOPHpCECfZN1DAwPlTNXbGVOnWSNeNE YtOCWwzv9KXQEkKSW3IvM1KGVtFPGcXIGjNKu5coXjjINwOYu4AR7KP0GgtaJcHtSMWp0Zo169ZMX8FF WoPt0UJ9mkUv4hTKNoVDZTNs2IDNb8TfEeCoa4ANLdUZVeUDRrPoJvYWteEiLuNPWxNyEdIwK+IDwyMD GsHLL7FMU7MPPqUYCqJIPmCYKkDlB3NCCzKvCoUn1f XSANCj4+JZxkhYSvuAqhPUZBZxBzTGlcYCfvCFUUWj8E ID Date Data Source [id number] 06/13/2021 07:23:07 PM EDT [facility] Name Value Range Interpretation Code Description Data Arabella rce(s) Supporting Document(s) Anesthesia Postprocedure Evaluation [facility] ELGSUh9gNnJYWvUi09/IVErsIVLwr8ZmLHbjBLv6LQntWWNmW0QgQLM3tD2oWDA5PMtNZpLuYrTmSWN7 lbm [file] K8TL0sUKQXLq7+LGuijLXtyHbkYOKCHuUaFmWjZXqpUQWFYh9E ID Date Data Source [id number] 06/13/2021 07:16:51 PM EDT [facility] Name Value Range Interpretation Code Description Data Arabella rce(s) Supporting Document(s) Nursing Note [facility] TTKUYk8iPsIQGbOf72/JRUdbSIMih4IqFWyaBRt1WMtkZFWdE4EpXNF7eT0fBLJ5AIxLAcYaRaAkSFJ7 lbm [file] NBU1GtCxLAj4Kop8KDD1AEJ+NN9qVDf+Fv9Oy7MpqfB1rrImNWdhSHJ2QC8IZAEJA4AIQu== ID Date Data Source [id number] 06/14/2021 04:48:00 AM EDT [facility] Name Value Range Interpretation Code Description Data Arabella rce(s) Supporting Document(s) Amphetamines, Urine Negative Negative Normal (applies to non-nume ny results) [facility] Barbituates, Urine Negative Negative Normal (applies to non-numer ic results) [facility] Benzodiazepines, Urine Negative Negative Normal (a pplies to non-numeric results) [facility] Cannabanoids, Urine Negative Negative Normal (applies to non-nume ny results) [facility] Cocaine, Urine Negative Negative Normal (applies to non-numeric r esults) [facility] Opiates, Urine Positive Negative Abnormal (applies to non-numeric results) [facility] PCP, Urine Negative Negative Normal (applies to non-numeric resul ts) [facility] Methadone, Urine Negative Negative Normal (applies to non-numeric results) [facility] DrugMinimum Detection Threshold (Conc.)A [id number] ng/mLBarbiturates 200 ng/mLBenzodiazepines 200 ng/mLCannabinoids 50 ng/mLCocaine Metabolites 300 ng/mLOpiates 300 ng/mLPhencyclidine (PCP) 25 ng/mLMethadone 300 ng/mLOxycodone 100 ng/mLNOTE: Phentermine may interfere with the amphetamine analysis.NOTE: This urine drug analysis is a screening procedure. Presumptivepositive results are unconfirmed.[facility] recommend submitting positive specimens to areference laboratory for confirmation. Oxycodone, Urine Positive Negative Abnormal (applies to non-numer ic results) [facility] The above 9 analytes were performed by [facility] [place] [id number], ,[place] [id number] ID Date Data Source [id number] 06/13/2021 03:43:30 PM EDT [facility] Name Value Range Interpretation Code Description Data Arabella rce(s) Supporting Document(s) Op Note [facility] DPGBIo8jRpSNSpGi68/HTNaxIDDtj6EeIYexNOj7SCjpTEDpC2QxYYJ4sE1bRUB7TXmNNlIoFbOhGXF5 lbm [file] TpHdOsDrWlGuDE6NZf6LLkC9QGB0bQSmCj0YUva0FWEBAsVxED2MHDg= ID Date Data Source [id number] 06/13/2021 03:37:22 PM EDT [facility] Name Value Range Interpretation Code Description Data Arabella rce(s) Supporting Document(s) Perioperative Nursing Note [facility] FMAQDd5wJiZBZcWt98/LUSmcVIThy5HmIQzlPXw3MArzYMFjF4IuYDK5cN4qZVN6USfGTxCmChQsEFS8 lbm [file] LFxsBZJ4RBEdYZX+CF4mHAj+Mu6Kh7PpbhU4hgTkYJjgOAy8OD3IKPFEY5UFBj== ID Date Data Source [id number] 06/13/2021 03:31:09 PM EDT [facility] Name Value Range Interpretation Code Description Data Arabella rce(s) Supporting Document(s) Perioperative Nursing Note [facility] UHBNDn3gBeYDOdIj95/PWUyqXQGpm9IaDNocDFi4VBwaRKHfK8NdXVC2mR3uCMV5LQuHIaZoXtCoKMB6 lbm [file] LyV4NqxbDFSuZgpjHYQ+GL4wEEi+Ll8To5SltzV3vxQnPOnjFYl8Yc1LEAKQY3SKMp== ID Date Data Source [id number] 06/13/2021 02:59:29 PM EDT [facility] Name Value Range Interpretation Code Description Data Arabella rce(s) Supporting Document(s) Progress Notes [facility] FZGHNq8nQnHDPuPm37/ACNkaFILma6HiRWmgOJb5BMysVYSiG7IlMDJ4mO1bOVX8NLnSJtRlMwLlNMG0 lbm GcLgkDRkNfFLMcVfdSYdEpTXhsFcmosQCjSK8ZgTF3RJJaY73gGZLiHBRhW9RxUBNbRFL+Dz6UNWOklA UfBU3TWvkD6FzmcwM4MC8sQT+Dpi/TYJLD6iWuXk05gq6GFWjwojso2WDDa1PltbH28PSCf47ntC2K0t mwbV4I1CAhAL57EDhxbts/vROHqZFSivX/zcc01+Ji Pb03UzuJSDiaxNvMHWGnxTsuCr5jH5tl1j6CzTVzi/4eaeXQGdDTiegOXRCFq3BmGHViu+qv5GzIL/B1 PifdjQ9VI8+eECGzSu9Ednd8n+gGu12IlDxP7n4ek7Ksj7HTTLKzl6vaqOy3gE8Pmq6Lh0ZA7qo3iSH5 zYgYlohxaN4e2nUo3TZ4heYD4sBBvfbQNxqrzoO8eD 9NOeRcwxEyMZPCqclCYvaXvZhMVLqcDaegYXbLPTju4EKLy6MhwgLCQrQXS4uSYY6h4wEYHPEGl49jnH 8B8SfVHA2sgVoU9SsUu7kmqP/XHm/Cy3SizPhVm1achZgFgbvcaSbsqvIeBUEkupUc3Q5cZe5A67D8K/ CZMQuo0WmlTUHA27nFPGDW2sWzQJeYukP6PHAYygPU [file] D0INZkLgYtZCQaIik+LZ0aCPu+Ck6Hd0YsrjZ2xvIcSJllNfPcNj7GJXJLL8EEXq== ID Date Data Source [id number] 06/18/2021 03:02:00 PM EST [facility] [address] [place] [address] PATHOLOGY CLIA# [id number] Surgical Pathology ReportPATIENT: SIENNA FOSTER CASE NUMBER:[id number] #: [id number] Date Collected:06/13/2021ccount #: [id number] Date Received:06/13/2021OB: 1980 Age: 40 y.o. Date [...] include the areaof ulceration in its entirety, 4-7-qpegqywvdw sales representative trainee sections ofthe tissue to include the blue-inked margin in cassette 3. BRANDON/kb Following microscopic examination of the initially examined sections, additional sales representative trainee sections of the specimen to include an area ofslight dark red discoloration noted on the mucosal surface are submittedin cassette 4. BRANDON/slm Electronically SignedBy: Wai Castañeda, MDCPT: [id number], [id number] PathologistI ATTEST THAT THE ABOVE DIAGNOSIS IS BASED UPON MY PERSONAL MICROSCOPIC EXAMINATION OF THE SLIDES (AND/OR OTHER MATERIAL), AND THAT I HAVE REVIEWED AND APPROVED THIS REPORT.PERFORMED AT: [facility] [address] [place], [place] [address]THE TECHNICAL COMPONENT WAS PERFORMED AT [facility], [address] [place] [address].COUNSELOR AT LAW: WAI CASTAÑEDA M.D. [facility]# [id number].SIENNA FOSTER Page 1 of 1 Name Value Range Interpretation Code Description Data Arabella rce(s) Supporting Document(s) ID Date Data Source [id number] 06/13/2021 12:41:00 PM EDT [facility] Name Value Range Interpretation Code Description Data Arabella rce(s) Supporting Document(s) Care Plan [facility] TGHVZj1qIvPJGsJh07/HUZmnBCWxs5HvFYohQOl9RAwtLGZzJ4XoLME1qD6wJIO6WOpIEtLeAlAgBYB5 m [file] cytology laboratory manager+0QhDWcjNWJpR4gNZr5+33/5ULGntVWXzn1T164 [file] ICAgICAgICAgICAgICAgICAgICAgICAgICAgICAgIC AgICAgICAgICAgICAgICAgICAgICAgICAgICAgICAgICAgICANCiAgICAgICAgICAgICAgICAgICAgIC AgICAgICAgICAgICAgICAgICAgICAgICAgICAgICAgICAgICAgICAgICAgICAgICAgICAgICAgICAgIC AgICAgICAgICAgICAgICAgICANCiAgICAgICAgICAg ICAgICAgICAgICAgICAgICAgICAgICAgICAgICAgICAgICAgICAgICAgICAgICAgICAgICAgICAgICAg ICAgICAgICAgICAgICAgICAgICAgICAgICAgICANCiAgICAgICAgICAgICAgICAgICAgICAgICAgICAg ICAgICAgICAgICAgICAgICAgICAgICAgICAgICAgIC AgICAgICAgICAgICAgICAgICAgICAgICAgICAgICAgICAgICAgICANCiAgICAgICAgICAgICAgICAgIC AgICAgICAgICAgICAgICAgICAgICAgICAgICAgICAgICAgICAgICAgICAgICAgICAgICAgICAgICAgIC AgICAgICAgICAgICAgICAgICAgICANCiAgICAgICAg ICAgICAgICAgICAgICAgICAgICAgICAgICAgICAgICAgICAgICAgICAgICAgICAgICAgICAgICAgICAg ICAgICAgICAgICAgICAgICAgICAgICAgICAgICAgICANCiAgICAgICAgICAgICAgICAgICAgICAgICAg ICAgICAgICAgICAgICAgICAgICAgICAgICAgICAgIC AgICAgICAgICAgICAgICAgICAgICAgICAgICAgICAgICAgICAgICAgICANCiAgICAgICAgICAgICAgIC AgICAgICAgICAgICAgICAgICAgICAgICAgICAgICAgICAgICAgICAgICAgICAgICAgICAgICAgICAgIC AgICAgICAgICAgICAgICAgICAgICAgICANCiAgICAg ICAgICAgICAgICAgICAgICAgICAgICAgICAgICAgICAgICAgICAgICAgICAgICAgICAgICAgICAgICAg ICAgICAgICAgICAgICAgICAgICAgICAgICAgICAgICAgICANCiAgICAgICAgICAgICAgICAgICAgICAg ICAgICAgICAgICAgICAgICAgICAgICAgICAgICAgIC AgICAgICAgICAgICAgICAgICAgICAgICAgICAgICAgICAgICAgICAgICAgICANCjw/qETsL5nyxZUqzz R5G6heZx8SPq1RFT0al3WpLISaCKzfakXbRnoEWsEiBAEbHrhXRjb0EQxcGD9OtKKiV0MhW2IlHRchAF 9ICKUnNWWlwLVwLHBuVBZvLpO0KJDzBZtbEQ6IjYBq XRnbYHPeUJZpIsUcQAWrDX5HBRUcV118hjGsHs6IKy0VNfQpJH8wup5HNirkRHQcGkvXEsw2JHdyHU7D tLTssZXrHLExSNXNKlHxX1fic7WdGvfsEAYZLHnpFG0Zq4JxsMTqGVj+Uy1WDH5le8GhDIlgTBGgHU3y zg8OUEzCDmNnG4IwaHktLNJaxrWiTBjzfsXvqACVIN WdQCTnc75jezftBo3cIPRqEQOzWC4tOHFcSNPvEiQzVTUXPR3CATPlUIAnuHHpWKJzGVXIVU4AMUizFP D5CrwgayGwpZHnHTdeAY4ITFNdteVxJoedBNADQPv+Uv6DQA7um9ZgCCtcDBYfVV6ext5ZBDgYNwMcF2 R4hBQmU2Y8VIqhLa1BBLKyOOJnRwAmFPDRGLpjJZ0V IV9xswW5AH9EeCPfQOIkBEEsfGYiNFx9Q22oiEVvEBeqXF0SARF+Mau+Fh4FMVYpQSLdOXYwIxTkSOBY GhXpJ8CrJ3TEd2IgE6BuIU20kBqqtyJxSDgdTU7NHK6vRPOhDFZOHK6VnJBudY8zgmQwWyIoVDZEMoHz A82sqLIaLBYnJMB7PYUeTo7TSWFkU5XrbePrlFaijp CiHPCiGVDWRH6PXNwrpaUqcECcgRxeLW94cDmuXY8CIw9EYoVgCS6vvo6OaVOjNk0MVXUlVC8RNJSgGF SjLPRlBHV8DHAaRuMhSHknDFKjHMIsKZJ7PIYfLKYwMS5AWiEiJSGrJuP0MeNmUIThXRJhvo2TBRZnEV YhOrJ5XhEtDVOgZQVvRJksPAIzOTGlZSQ9MTNnPAQm SF6UQpJpTTPwWALqOUGiVIQySDEtij5IBPNxKTLuPmW6NwDnDBQjKOErZQccXEUxWHWcCEB8GBWsMQMj AA5VFnCfMIVvIMBzDgnvOIUxMMWhbx8QMGTcNUSbCJW3QmMiRAQpKXNhBRivRPKhCCP5Wjd8FTGnEVYf PO9VGeHjRQRjGJD5RwGaOEQyPTUjvq6FDVZsXCFbDJ RiWjMqDGIrWFItPBnnOBAoWUL2DgBmHISyRYLkXH6RJmBuVZCjMRP3YRTpQOMyHAMvsh4NGNEsLXJvLB N0YxChVRIiPETlTRjkQHRuSWX7ZDj0OXWlZSOpGC9PLnTsICSsVKl7NSsdFZSxEDYeuq8BJSIwOOUtEN TxChEyFFAmYENuZHypUODuGVK1FBmsOOLiSJUhDQ4U XqNzPIRlAdUgCJZgZCMaREJfcy2FEPJyROSpBEAeRgRgYYPmTTRnGPgvQRRsTOAwQKi4QGOjPLPrTP7H HfPqASDpRpP4CLPiHRIiAOFafz6LTMLoUEFmNUYfQmOaSSVhSOHnGEfwWXLjPWFhCet7OCAyYBDwTT1T XuJzBLNjYxHhZaBhABIlHVCzhn0ZYHLrMXYmCjL6Vh AgPUYbZDNtGZcaEETeUCApAwP1GLIrFXPiRQ9PViTkQGPpXiM4QJbvKOEaTDIola5UdPUwxMstky9ORF bMHd2IkRxvJVZpRPdnYi2csWAqJITnPATJIa2KasVePYVfKKIXTWhsHNPyHMp0ZUOcL0ItVZLpOmmzHO RaI8TtYrCmGTomYGktElhzZgR8TbQvTuBzVYWhOHIa TBB8SHQ6S4Y1X7D7GGB5FQFhSfR+QD6cTUc+Gm8Nv6RzqlE8dbKrVFhqPGNoTk7BRHMDC3BCMm== ID Date Data Source [id number] 06/13/2021 12:35:23 PM EDT [facility] Name Value Range Interpretation Code Description Data Arabella rce(s) Supporting Document(s) Progress Notes [facility] NPAKGv3kBfSGQgWb91/WXMcaBUPvv9ThTKayYEj6YUvfUBLtD5HsUYM8pS4oEAI8CNrJQeIaWzJdOIX8 lbm [file] ICAgICAgICAgICAgICAgICAgICAgICAgICAgICAgIC FzOWXhHZJzQCKuBRIpPKClNQXtKOQtFKPwQMZiCBAyHZXyATMcZR6SKVRcJRMuMIJcHNWnMXVtZJAuNU AgICAgICAgICAgICAgICAgICAgICAgICAgICAgICAgICAgICAgICAgICAgICAgICAgICAgICAgICAgIC LvELTsGVTbZAFyCQHhMJAfLVCxFC4RROOpTIJjWVMj ICAgICAgICAgICAgICAgICAgICAgICAgICAgICAgICAgICAgICAgICAgICAgICAgICAgICAgICAgICAg VCOkIIOnKXEkOTUmGIUwZZCeNVFcTHLaDEJiHHCwFT9TJDFjNSGuCAFnOUJzHMXmHGMxLDCbHDYvWNVw ICAgICAgICAgICAgICAgICAgICAgICAgICAgICAgIC OiGYKoKKLqITDkVQEwPNHzTXRqYJLzFGYtRNUhWCPuDBWgJZXsHXSaSX4DFZZrGGFcDTLySRTiCFPdXZ AgICAgICAgICAgICAgICAgICAgICAgICAgICAgICAgICAgICAgICAgICAgICAgICAgICAgICAgICAgIC BsQRSoOILuXFOmYSPiKVRmDDEkLADmKK3EIRDySCZi ICAgICAgICAgICAgICAgICAgICAgICAgICAgICAgICAgICAgICAgICAgICAgICAgICAgICAgICAgICAg EOCuPOAgXMYkLJAkDMYqTSZcECQtIBLnGSJgYWJfIRIaRN1JIXDsKKZwPKBuCQSgZZTfDLWhAUFoWLZc ICAgICAgICAgICAgICAgICAgICAgICAgICAgICAgIC XeSPAwEWBbJRXjHTNgVSHwCWZiVBDoPMOeNJRhWLEbTXKbDDKfDSCjEXKgRP0HFBYgHFQgOLEpAJKaGE AgICAgICAgICAgICAgICAgICAgICAgICAgICAgICAgICAgICAgICAgICAgICAgICAgICAgICAgICAgIC BbHNNpGWMkWYDgMQHvZVSnXLWqOMOjBWAhWJ8JOHSy ICAgICAgICAgICAgICAgICAgICAgICAgICAgICAgICAgICAgICAgICAgICAgICAgICAgICAgICAgICAg IMJwZGIlDWKqBSTxONQgRVSqJHTlGMWyNLZbJWSoKQTeXWOcSY1HROFqUFNrRVHaQPJnVLUqFOVpCZQk ICAgICAgICAgICAgICAgICAgICAgICAgICAgICAgIC PnNKGlNBCuYFVcLTBgMIXuAUKgCLAwNQWuJIBnMOBbIWZxUAUwNFAtPWKqTMFgNH1CNI36rWXiy7N3VS QyVU7znnl/Wq4NGDguitYkaZCyMQ2HZjAgIB6ybd3GVzIiXF5jbv4SLPaKDhIdU7F7yOOhXLUxTSGXLf FoK31lXVhrAp10FRmcFXQhTrRsAWy6Se8PPkAmQ1nt ZUSgIhV9JYOaXkO4YWOrPxG3NDDpChUeDBZyNWLlJZ5LHVYtJ373udJcMQ7ZQt6SVpOvFR4ycq0TYFOs LMLlYzoIHxx1VTavAO5CqIYynVV0ZjDiDKQEVgHdM5gim6GkRZNyTXOEUByuCL0Rg8PpdJSiSAg+Pg0K GJ9bj7QwOLf9NvOxCV5yrx6HIKlONyZaB8XcaTuhZQ Pfr0qwWBRvOS9vjZMlWDG6EQTazojfqIyuLYISGLMzkQDioZpkKUGFTKOPAwWlgCWrQI82SiZdHrBqZZ Q6UqBpEK8yRQcxFA9AVKA8WDdcKSQzKRKdO6aNJeVaMWyxIXHywKgsNE4EWjGxI7VjfzPjpXR3AbTuWF INCj4+UWwvikUyFcqZYoT3HHRfv0CeOUs7BX8UNWVv RFwkJB6EGOUwdX5cOBnzBY1RNnX3CDVlJEFKGmJyI05ftPGxNOp8Y0XaToWlZMXoQxduIUTnUKvsGrKq ZXMgWyBdDQogID4+ID4+KOugTX6YAPakidWdRXBrBw8YLFGnDGWvKT2nWSCbTBDaK5U7eImlPDISWsHn U0qjhxdyZQ0vBQTpI432eBqbzhBeYLHlHREuEz0IVX HpMBC1UHCcfVXmCIFwSMIEAKyxSA0SjVYnLQJ5qF2aQEktSOUoRFLsQ0lCUxEviSwnCM43kVgujfQqoW BdDQo+Zf6MSZ8ik5ChXMu9mjReJHzbWXP4OLakIQRgVNJvUOAkTZI5DJE0PTCRGkJsYGOoLJTvPAenJC KrADMlmt6QKPDmLTJfREYoBbItXGMzBNUwJClcXHLm HPQ0VGQ2RXTtQVDtIJ4NWeSxBCAxUTMqYVipLMMvSWTsqo1LUNAlPLFjCtlxQFOxWPScCILbRXprPUIj RTTbRHF3CIGiHCBlRN1ZSlOnODZySLFhGnSnRCCbBFScna7WVAZbSCVcLBMgNEDfOJUdMQOcOXiiFCEv YBY6RZdwPMNwTEQmBD9JNiObMFKoQAwzICoaAKKbHP Mkaa0FMSIoLWXkDOi6PgNeZDQaNIIjIPvwVKGyMSEcISWeMXJfKPSgZX7ZDbMbXUXlWMTrFCVpHLOmPU Ymyw1QYVDuSQVpAJCkGqMxQVUoWREmDVdsECGtWFOrLCSeJNBiCIStDH6OAiMaEPTbJCWyDyNdNYRvPS Ryzf9TIZTjYFQtTuP0LDGrTTZjAVVmDOulEPRyTPTd BaAbIZGdPLPgCB5NQvKtFCFhSUU9XDCfAQFaVMCgtj6ZQLWgHFXpMkocJuTuHKUlVFOdGQscDUTxXJE8 DId8ABSdNFYsIQ6ZNaGrTRXyVCFxCQSoOLDbCVDqod7MKNDhBJTrJCA7EoJaDBJkTLInDAoeGSGwFNE0 WODcOPApJSRuXB3QNyHqYGXtHTSbQIuoPCXbLMUsgl 5ULXGoZNMwEwGvTRUgRAXrUSYgYIflOROrBOM9Ovz1XLXoZEKbDM8JVyHnYZRtAxFhRRGmYWGmUOCimj 1ZWCKzHPMeYMPfINUnKRSbDHJtUYjyMCHiSUOhJuA8QKXxEGDuFV3FDoZvCHDcKfT9DVAqUFDrQUGgvo 0KMDAwMDAzMTAyOCAwMDAwMCBuDQowMDAwMDMxOTcw ZQStZTNrUL2HFxGdFJJlHrHuPvNvAFEnWNJzdu2MBOOkIDWhYrS0MbVlFEKhNQLbVMneGXGhWEM2SGq4 AWUgBXVfTP7ZRgYyETQdJok0TOCiMDTpNBQngb4SWVWeMZGlPesdNQRoBTBvYDWrFDvjVSNvNGW3IIS2 ZLVzYZYzUQ3CGlMkJJVvWjocLZPuJTBjOUYoek9RAY AmBSShHXR2PoGwVMCxUVTdGAouMDGoRBKrQPGcZBNjTVAtGA2NKqTyHSTmUPKlTyMzQGPgLDUhxu1GRX DgEVU6OKS9FcQtCGUuSYSrMJb1oiYmhUHtVCk9PJ4QM4YpztFjLRJXQn4Pi591FPF5OTSkSw7CZ1ahYp 1dKNNzFOXNQo5SWZf5YTRvNdVmXfY3UjK1AdsjNLnk ZGMzOGExZWIwODBlNTA+YGwnHwM7MAIaExm2NQppA5KqXWYhYuP3ISRoMaG1LUB8DE4dEIUVPh7+DQpz oTXhrSitPUJITtJhXCE5TDgtSVPOLm1S ID Date Data Source [id number] 06/13/2021 11:19:39 AM EDT [facility] Name Value Range Interpretation Code Description Data Arabella rce(s) Supporting Document(s) Anesthesia Procedure Notes [facility] TILVSi3xOpCFKsFy46/YXRcvICXdd1VyKKlkPAx3YYmeCASlM3EzUGO3kP1eKNF0CImMMgVsIsNyDUI2 lbm YxZyxECeIgGWIrNyqHRkRgPJkoMvpalABpUO6DrHZ7VTLsF38yHAElDITeD0QkCMRrCPj+Jc0YHNGwjG PqHT7AUjbS0Mxfo2KVHW/vTP+Hm+nDdLHBSz6cAR7YbSHxZGIPyG6lEInKLUYpO4JKR+Qf49h0adVwU1 yxo9vqSsZ4Olqf48ocFzn3qg/SqbL3sloEt7L/k5Sz yYL9/XZvcZn8kehaM8oZKxLa6YG8zSzB+Pcf2E+DhEfor/yGdQfvkgi3yX7QbEvWLECLTpXrRZJQUp/5 c+FtB/J7gZ7ir3wyq69gWs9nAlu5Pg/nhzFn4/zR4WM2/nx0Nmm9CeTBFIzbdUs6zA15gCc1Am78JRdt gUBNAchuDI6qrTciT6BEl7YKVlHDQEFyXMJUdptfJw ISMpaUSG+f5zGFKG72WzWfD0lqLjLyhbu0MBQI2ypqxRgrA8BFKGiOe/6H4PZhWOd2TjpTOzuELAW+Mm CHZoyX1cap9fFcpCpIytEgfhGPU4SlcPav8dklCj3Woz6Gau8KZ+Eytd8tzeeWkbOl+4QBL4zsmqqyOR cqm1Zf3/1YBUs/YtDaYHt6DpGuR9jrg/xa6pc6s4MP LHeZN4wtWt7oU0ueWw/s9jIRkL21ZAyLwEbzDPc2Fn80g3Kpi8iKtSvoGwTwbhzO0jnAjUT6If/m/a+e d8l/+8EPg24b/zT4B4ofiZj9OE0uHUi2hWsvhgPnAMwyAxQKOXu87D4ywTFthA4Wk5b5fo/RXopoqe2n LhQe0lEofR/GrcSy6V4gX+jHMGRZ4/pXEhqMfRVcnB Jp6D/ocuD+4lWe/sr9ie9+o3r8FAe9k1YGpxY5KiLGi/eKX0AZe6A4tFI0MkfBS05rkEPz2Za/Jackson+wi/ [file] AgICAgICAgICAgICAgICAgICAgICAgICAgICAgICAgICAgICAgICAgICAgICAgICAgICAgICAgICAgIC AgICAgICAgICAgICAgICAgICAgICAgICAgICAgICAg ICANCiAgICAgICAgICAgICAgICAgICAgICAgICAgICAgICAgICAgICAgICAgICAgICAgICAgICAgICAg ICAgICAgICAgICAgICAgICAgICAgICAgICAgICAgICAgICAgICAgICAgICANCiAgICAgICAgICAgICAg ICAgICAgICAgICAgICAgICAgICAgICAgICAgICAgIC AgICAgICAgICAgICAgICAgICAgICAgICAgICAgICAgICAgICAgICAgICAgICAgICAgICAgICANCiAgIC AgICAgICAgICAgICAgICAgICAgICAgICAgICAgICAgICAgICAgICAgICAgICAgICAgICAgICAgICAgIC AgICAgICAgICAgICAgICAgICAgICAgICAgICAgICAg ICAgICANCiAgICAgICAgICAgICAgICAgICAgICAgICAgICAgICAgICAgICAgICAgICAgICAgICAgICAg ICAgICAgICAgICAgICAgICAgICAgICAgICAgICAgICAgICAgICAgICAgICAgICANCiAgICAgICAgICAg ICAgICAgICAgICAgICAgICAgICAgICAgICAgICAgIC AgICAgICAgICAgICAgICAgICAgICAgICAgICAgICAgICAgICAgICAgICAgICAgICAgICAgICAgICANCi AgICAgICAgICAgICAgICAgICAgICAgICAgICAgICAgICAgICAgICAgICAgICAgICAgICAgICAgICAgIC AgICAgICAgICAgICAgICAgICAgICAgICAgICAgICAg ICAgICAgICANCiAgICAgICAgICAgICAgICAgICAgICAgICAgICAgICAgICAgICAgICAgICAgICAgICAg ICAgICAgICAgICAgICAgICAgICAgICAgICAgICAgICAgICAgICAgICAgICAgICAgICANCiAgICAgICAg ICAgICAgICAgICAgICAgICAgICAgICAgICAgICAgIC AgICAgICAgICAgICAgICAgICAgICAgICAgICAgICAgICAgICAgICAgICAgICAgICAgICAgICAgICAgIC ANCiAgICAgICAgICAgICAgICAgICAgICAgICAgICAgICAgICAgICAgICAgICAgICAgICAgICAgICAgIC AgICAgICAgICAgICAgICAgICAgICAgICAgICAgICAg ICAgICAgICAgICANCjw/qXBcY9ocbSJnbdG6X2pbOt2HHv2TJT4hi7KyQWKhONgaqoKvYouMAfZbRCZi DncIXif3EWttVO7WgAGbD7KmF2WwVHesXV0XTUFtVEOguJHdANFpGFFcRhZ7UREwGUvsGP6LtJReMQkk CPLdEZBkDaWkVXNcEV8WUSCbX259diCjRr1DQr8EKy VvLA1ryf5YWemeWREdTutAUgk7NJogDC4GdHTifLFmWAJlDRHSLhIeX6niv6CaScexOPHZIIyyRU2Iv6 VudCAxDQo+Hv2VFB9qf7CfBLpgFIVgBL3acb0WYVoDNbQpY5NcpGrfHMEoZJD8dJUcbIAgKSVcZ6DnnU UzAG7wrWUmXPH3NOJzYZVcZGOvYD5oqlIcRKPMUrNc DPDfEBWwMX2zGGEoTQXmSlK9ICVETN5KEPOwGHPbxSWtZSPmQVBLZV3ZKZvfYON8ApzepkGgtMByLZdr TA0NUMUgvzOqXvbrRARUNSc+Df6VXF7fl1JmYGbxJDOaXZ4dkl3DIZsETsHbJ3G7zRLcG1M5XXwrLp4X LVZbNJTgSnMnSNBLZMviBV8HNP4tnuZ3KN6YtSZgEY HvDZNzrVBcKYb2J51epROqDClzFR7UZDR+Mau+Yy7XNOZiNVGwZBYzAkJeSHNRZlNmC3AwJ9TLg7WdH4 QxMH53vFaayfNjIXbkDH2UAK8kWQErVWXVLJ5VcWWloE1tkoKmZdSfJULSVeAdX46klLIwGTKdVDF1UD ElFl5EGQMbK0JpktSrgQyzgqGmWQYmASHGYR6OWOez zsYalVAakEckVZ60zWxwGT1ZEk1RWyAzLB6anb3UxWZwLe1CJIMjQV5NLSTbPZEzKPEpVZG3HDGvNxJj QFqeENBjKTBrXMX9ENNoDMYkFJ5MDxBgLZKhXuL6FopcRWUlLNVmed1WEUJhXUSqOwN7VBFkEBUbIGJf DUdeMMEyHVBxQUM7JBKuOWBnPH9CLiZwISCtNXBiGw MhSEAlDJHjwo5LIXEbFPPkRsPsZAHiZPOrGDWeRLcbBPDgHFVhEEU7AWHgCSHlDY8YDmWtQOZyJPYrRI wwKHDlCYAvxc5EOUUhVVBgLQJzEkAfDRKlYCVqJBtoMNDfKVZ3PXY0CEMzRNUeIX0GSoNnBOLkGPT1EL TsCYOtXNGdog1ZOSXmQAUyMSW5ACVrCEByDHTdAKhm WGQuDJG6ENNgZJPzRYIuIC2PKyDfRHChRPSlVVVuTOGkVBElen2IRCGxBDVkHPT4LoCrELCbIRWsRVqz HZUzHDL6OaH8NCFbMCQwXT4ELhZoDMHyOCm6ZPtqKPMaFLZqfe2UJSDsEZQqZGD8FCBmCATpBWLhJRmv TCBaZFV3YxN0STGgDJDjLT8GHfIzHOItOjWsYBkoNI NkUIHxmj1KYZGqNFKuIUSwGXSfHPFwUFBwZWqwJUBuJEFuRuI8ESTkYNYtHO2ZYaHbLONtTbQ1VVzyZS LeZHEsow6JFXIlISZkQVi3SiIkCTRgYGZuEJulJPCmGKMyQQL0BXQcMIYpZC1MIpNcCOYfXlGfNQusQL ChPIEdps7VRWZqTXNxXby6IuKfIQIgCLOmGGpiYVSp RUEcXHG4FQBmUKZmSL6BEvFjEKYtQoEcZqKjHYRkTLEdzp0UsOGjgViamr9HPVnIQe5YnSzsCLYcWYjz Oa4boHUqIVYtYRKNNa5GmaUlCBCvNHKHFHggJHVtACKyICX8MYO7Aop4TGPvCFZcQUgyFVRsDwUaYWy9 NIl6LtT8RoH3WIx2LcaeHirqRtDfRuIpX8RkYGAyDz T1TmO3SEr+YH9eBBq+Zu7Sk5MgxsJ6zsHfCYnlLIU2PA2VVJIHQ8UKKu== ID Date Data Source [id number] 06/13/2021 10:40:27 AM EDT [facility] Name Value Range Interpretation Code Description Data Arabella rce(s) Supporting Document(s) Perioperative Nursing Note [facility] LFHHCp4nKnKSQmTo58/SUFvhPBUjg7HxGFiaLUv3KVinRITbE7SjDDR1uT2dHKJ8UQaDFjZnMcYrQHW9 lbm [file] HHWwVxG4ZTefUGNpRZY8F7IwIxEwKd2rZOQUSx9+XFbgvMXkbJxgUVXHQvEaEMObEYtjOTHSZe9V ID Date Data Source [id number] 06/13/2021 10:36:35 AM EDT [facility] Name Value Range Interpretation Code Description Data Arabella rce(s) Supporting Document(s) Anesthesia Preprocedure Evaluation [facility] LREGCl3fVeYMZdTe72/NGHsiGHYyl8FuPRgeODj3AOdbSKLbR3AxIWU2aW0bUIP1FLvUIdUtDmTqJHH2 lbm [file] MlOZT4OgMcLQPnSELaPXRmRgrdDlBlEB6FMe3DTeG8NYO1hCVhSa8NQtMbAOWTTdFjEV8FCIb= ID Date Data Source [id number] 06/13/2021 05:08:12 AM EDT [facility] Name Value Range Interpretation Code Description Data Arabella rce(s) Supporting Document(s) Nursing Note [facility] UYKJSs7hIyMLWcSz07/TWGcjTHRss5XgJNsvHXl7ZEjqOPZmN8AcXXZ2sQ3qGDB6YGsHDwCfSmPnKFD5 lbm [file] DKy5Be8KEROXB0HFCi== ID Date Data Source [id number] 06/12/2021 06:38:56 PM EDT [facility] Name Value Range Interpretation Code Description Data Arabella rce(s) Supporting Document(s) Nursing Note [facility] GLSCLb5vQqLZJuOx48/ISJxhQHGpe3JvPDqiXMt5SWoeRVZbZ9KjNVH3cV1kGIH6YBrKQiLeQbWcOLN4 lbm [file] KtTGAfGkEoUGb9QZdpYVe5YDF0GJ5vVLTZEl4+FHecsVAuuFffQPXLFpKpTDPiPOjtIDNMGe6L ID Date Data Source [id number] 06/12/2021 07:45:00 PM EDT [facility] Name Value Range Interpretation Code Description Data Arabella rce(s) Supporting Document(s) WBC 4.21 x1000/ul 4.80-10.00 Below low normal [facility] RBC 5.04 x1Mil/ul 4.20-5.40 Normal (applies to non-numeric re sults) [facility] Hemoglobin 13.8 g/dl 12.0-16.0 Normal (applies to non-numeric resul ts) [facility] Hematocrit 44.9 % 37.0-47.0 Normal (applies to non-numeric resul ts) [facility] MCV 89.1 fL 81.0-99.0 Normal (applies to non-numeric resul ts) [facility] MCH 27.4 pg 27.0-31.0 Normal (applies to non-numeric resul ts) [facility] MCHC 30.7 g/dl 32.2-37.0 Below low normal [facility] RDW 16.8 % 11.5-14.5 Above high normal [facility] Platelet Count 167 x1000/ul 130-400 Normal (applies to non-numeric results) [facility] MPV 10.0 fL 9.4-12.4 Normal (applies to non-numeric resul ts) [facility] Nucleated RBCs 0.00 % 0.00-0.20 Normal (applies to non-numeric r esults) [facility] Abs. Nucleated RBCs 0.00 x1000/ul 0.00-0.02 Normal (appl ies to non-numeric results) [facility] The above 12 analytes were performed by [facility] [id number], ,[place] [address] ID Date Data Source [id number] 06/12/2021 07:29:00 PM EDT [facility] Name Value Range Interpretation Code Description Data Arabella rce(s) Supporting Document(s) AST 30 IU/L 15-37 Normal (applies to non-numeric resul ts) [facility] Sulfasalazine and sulfapyridine have the potential to falsely depressAspartate Aminotransferase results. Baseline values before medication administration are recommended. ALT 31 IU/L 13-56 Normal (applies to non-numeric resul ts) [facility] Sulfasalazine and sulfapyridine have the potential to falsely depressAlanine Aminotransferase results. Baseline values before medication administration are recommended. Alkaline Phosphatase 53 mIU/ml 50-136 Normal (applies to non-num madiha results) [facility] Total Bilirubin 1.20 mg/dl 0.20-1.00 Above high normal [facility] Blood Urea Nitrogen 9 mg/dl 7-18 Normal (applies to non-nume ny results) [facility] Creatinine 0.60 mg/dl 0.51-0.95 Normal (applies to non-numeric resul ts) [facility] N-Acetylcysteine (NAC) and Metamizole em ve the potential to falselydepress Creatinine results. Baseline values before medication adminstration are recommended. Patients undergoing treatment with phenindione will have falselydepressed results. Patients on phenindione therapy should be tested with an alternativeCREA method.Toxic levels of acetaminophen may lead to falsely depressed results forpatient samples. Glomerular Filtration Rate >90.00 mL/min/1.73m2 [facility] GFR Reference Ranges:Normal Function or Mild [...] of Health and the National KidneyFoundation. The [place] method used in calculating this result is traceable to IDMS standards. Glucose 103 mg/dl 70-110 Normal (applies to non-numeric resul ts) [facility] Sulfasalazine has the potential to false ly depress Glucose results. Sulfapyridine has the potential to falsely elevate Glucose results. Baseline values before medication administration are recommended. Calcium 7.9 mg/dl 8.5-10.1 Below low normal [facility] Total Protein 6.3 g/dl 6.4-8.2 Below low normal [facility] Albumin 3.0 g/dl 3.4-5.0 Below low normal [facility] Sodium 138 mEq/L 136-145 Normal (applies to non-numeric resul ts) [facility] Potassium 4.5 mEq/L 3.5-5.1 Normal (applies to non-numeric resul ts) [facility] Chloride 109.0 mEq/L 98.0-107.0 Above high normal [facility] Anion Gap 9.4 [facility] Carbon Dioxide 24.1 mMol/L 21.0-32.0 Normal (applies to non-numeric results) [facility] The above 16 analytes were performed by [facility] [id number], ,[place] [address] ID Date Data Source [id number] 06/12/2021 05:03:08 PM EDT [facility] Name Value Range Interpretation Code Description Data Arabella rce(s) Supporting Document(s) H&P [facility] FSDTHx1fBaYECgCq82/CEMqwYUVzu3KiVOdoLRy2JQxzRQLeY0MqBCM7yD6wMYG0UBfYOaDxYdIpWDB8 lbm [file] AgICAgICAgICAgICAgICAgICAgICAgICAgICAgICAgICAgICAgICAgICAgICAgICAgICAgICAgICAgIC AgICAgICAgICAgICANCiAgICAgICAgICAgICAgICAgICAgICAgICAgICAgICAgICAgICAgICAgICAgIC AgICAgICAgICAgICAgICAgICAgICAgICAgICAgICAg ICAgICAgICAgICAgICAgICAgICAgICANCiAgICAgICAgICAgICAgICAgICAgICAgICAgICAgICAgICAg ICAgICAgICAgICAgICAgICAgICAgICAgICAgICAgICAgICAgICAgICAgICAgICAgICAgICAgICAgICAg ICAgICANCiAgICAgICAgICAgICAgICAgICAgICAgIC AgICAgICAgICAgICAgICAgICAgICAgICAgICAgICAgICAgICAgICAgICAgICAgICAgICAgICAgICAgIC AgICAgICAgICAgICAgICANCiAgICAgICAgICAgICAgICAgICAgICAgICAgICAgICAgICAgICAgICAgIC AgICAgICAgICAgICAgICAgICAgICAgICAgICAgICAg ICAgICAgICAgICAgICAgICAgICAgICAgICANCiAgICAgICAgICAgICAgICAgICAgICAgICAgICAgICAg ICAgICAgICAgICAgICAgICAgICAgICAgICAgICAgICAgICAgICAgICAgICAgICAgICAgICAgICAgICAg ICAgICAgICANCiAgICAgICAgICAgICAgICAgICAgIC AgICAgICAgICAgICAgICAgICAgICAgICAgICAgICAgICAgICAgICAgICAgICAgICAgICAgICAgICAgIC AgICAgICAgICAgICAgICAgICANCiAgICAgICAgICAgICAgICAgICAgICAgICAgICAgICAgICAgICAgIC AgICAgICAgICAgICAgICAgICAgICAgICAgICAgICAg ICAgICAgICAgICAgICAgICAgICAgICAgICAgICANCiAgICAgICAgICAgICAgICAgICAgICAgICAgICAg ICAgICAgICAgICAgICAgICAgICAgICAgICAgICAgICAgICAgICAgICAgICAgICAgICAgICAgICAgICAg ICAgICAgICAgICANCiAgICAgICAgICAgICAgICAgIC AgICAgICAgICAgICAgICAgICAgICAgICAgICAgICAgICAgICAgICAgICAgICAgICAgICAgICAgICAgIC AgICAgICAgICAgICAgICAgICAgICANCjw/cBHyN9miiWKpdkS3C2qvJp0KQc2AXA5ub0VfSRGeTWkoxn JrFpbMWoQsSWEyBunGGbc9PDwjUS0TyXPgY3IbT7Qy NSvkSY4EYUNiEJMilOEeDOArMHDjPbG7HMIoEJmxZF9SkIXpIHhjQFBvFMBzReGbRKKgXUSmFXHvTHUh FCFZRS1SWiCqX6QenU51CKUTCu4+TZwpduKzAjqOJiK8RTHdi3GlFAl3IU6FLEJxIcltv3BxFNTlITLA UPaxPC5EMLQ4NJXqHTTqDk9APZVgI670ylEnXX9JTm 8QCoWtXG8jif5SIRDqVMHdOtwRArz4FXxiIQ4CoUGyTOxTZvFiDneyE0fltEwdiZZTKOjaSRVtxbybXE LzEMZsMWLpTB3nTUGrWTHgHeZ4BMLVZQ5PNSBxPRXpjXXuCGWkOUVFBG2JSOjjUQS1KdjjhqWvqSKgEW kaWY2WLIRgxuEaImigFTBBZHp+Ol6ATD8ml1KkCJu8 PHPfSP3mvl1PRUgBVdHxJ5Y7hSBcW5A4FJpiEt1BBUXuOQHqQpivILFXCKmlNN2RIP1jegX9VX8LbRHp CMWcMNYcwDTyHMx2U57uxQMuMRlzMI7HZBP+Mau+Ys2HTQKkYYJdGFFdBoMoKAMJQzFkZ7KjE8PZu1Qm D5WgJT40uLaatdObQGjsQT1ORI5xCFOwEMAISO9GrZ CrmA7ogaOpRSRvRXJWRrFcE45eoTEpLCBaQKE1WUIaQp5QSGNbT7ScveYwcJnnhyVeFUAuCYAILW6GED phpzNmuIFewPvwBD57eXayNN9EEz3SCxSvFM5wdy9NwQFvTz6XKVW0Mh9GLXAfSLDsGXJiWFW0WFUqUs KaKDtwNKSyVTBsNBU7BPJgQOZsQB4FYeSnQATjVEQ2 OXUhZLWzAHMakv9KTEInNFO1BiHjQmZuUKPaYUBdMOheXDDpDBVmIFE9RLPeRPUrDF5XLwZjTJXaNOL2 VpdyPFAgAHXyxw4FSRSzLZOyKtFzEoLvKGXnTHYyCHugGHWrGLG8XmOzMDQyPIGxVN6SVgEiTFWnEWT8 FHJjGIDwDPDcwr8SIPGzMQUkGYU3CuYeMMHuQOMnTY maRIZyCKA4Sgo6KCAxEAUiEX3IMkHhWGSiGZYfDYFzMWVbLJNepg8OQQXpAYVuZPOaMFJcOTDmOMTjBH fpENWrFKPgYeW6EVYwJZUrGD3CPnHvRJCtUBT4DeXeXOGmIKTxag4MXFZyXBAeHDx8VVQgKNKjDEVjGK tkFYKvRHYmYyH5BGNpDOXzXM7PVfTfKELbAGB0VTIy FRFfUTUzlj5ZPKPhCLVzUyR2MJDfMYRrIGYyDFnrMAYnDEN8RCE3ODBmDEQhOI2RFoHsGADpOsI4WrYo SKAhYFUwzw9UFIHkWSKkDYt4RoOlYSFmNONmWNsdGUDgKNX3FoEwMADuEEVxKJ1CXhPpXZMrXtMcLPjz YJGiGGSzrc6WBDJtCELgQaYbNcJsAJLeDWPcREsoBQ OaQFJ9NGedJIHdDKEwJA6HDnKuHLOfAmt8RsNzAIEoRLRevs1FXBVwASJpBASdWnEfFPLfVHGkRGjpRJ PeMBW1Ake3JQCoKEVzOC2BTrCdWOMlCcw9HeBqKBXjTYFjid2GRLMdCRJ4KoC9JZVyLWKcIIBlQDxhFT EpZCKhJsXcAWNaITVjPQ3WEeZyEQAaUUT3QwXkMWWi SJKofq4UXGHoUAR8SvT5VaVbSQTbOZEaNEhvUMRtQKFaIeM0GFCpWLCvGQ2TQmVtXCYcNHYnMZIzPJUi BPXuzq3LRMQxDNZ8VWU6WPLfWVBmGPOxBFbuRWJlULE2TCZ3FJAdJXVfJA3UOiCqGVOmTVW7NAMyQRCw WYEswb6UFJUlFKJ0LwI0FDNxGXIrOUDgZZvoKCAgDY C2NVFmBGEsXEAuYJ4WKmPsDIKyEBP1WnGdWYJoMZRbrp7LpKBssWldrc9FGYnIHc4EmQdmUWBmNHacSe 8yqYY7LIWpWGAWTy4GgdKpMIWeLAJEXQlaOLPsZBS5WNZyPkFrWQLoPNG2UqI5NJV4KROsAEKrXELsL7 W5TcF1VyKyFdTnSNNdJHZ1WKLpXqtsKuV5NZM3MLJa MTBjYjQ+ZK6kXFn+Kx2Ez3IsmlB2ekYeFEb7SuqqMW1PXNPLH2ANFv== ID Date Data Source [id number] 06/12/2021 04:02:17 PM EDT [facility] Name Value Range Interpretation Code Description Data Arabella rce(s) Supporting Document(s) Progress Notes [facility] SCVVNe6zJlFKNoFy01/CIPtzJARuu4FfWWetVNl4PYtcKLBuI1LmVUT5dL0oPEL4AQtPVlApYfCjMZS3 lbm XvZyyHFpQkMNXcFzaSRcVbGNhoAjwwjOYpYA6CmIN0LKBzN36kWRPkFJWaH7QgAZTzBMM+Dk5WVXJshB KhLH2KJtxY4AuVp9dXJX5D2A+FW3PB1C6/aDNFM3sYLwboQsY1XD2yCb7gdeHDwlcuf95jkdX6s+1CkJ cBmhzEwc5+3+w8lzRA+PcXHFvNGIPm/+6KjtF6K/j+ CoxLlRqtRF5QMH3BkBKuKoWClv+22vzUFhP9Lt/UAEDOBaLgQTZVq0dnhTu0gNWH63JC4hiDMeT5aYVr Nwehp9GmbgEE709Lv06KUnMwLj79/NcnahKUrofnyAFqQqiwCRkFKyamDMBfSlgdZxOJQzOG1GGXE1UN oBag3DrZ1vVMbO8ntL5IgU/pXobFnqbAuPioSaALTE zyvgUWLonpSVeHqQ0XTQfQCsRV1zBfKZHURVHGefbqEAjQJ8KKkxLPRGS6ZpFzQx8nFN1VGvSF5HaMuz ogD/BxU/Ga/AAHtizgr01jiWnga6rzEaS+syHFHVD4zuo0v0C1jHzgloiPdmknzGtEa1VqBW8tLUi58S UYC+Y6Vxe1dGqPy2ug4oI45YDLSUTeWrtv755r6OJ4 3CeCuJeJg54gU4NVDivJFo5E6JwpbeBBoGxlkyxf7NtN76q3j6K6OzQbhPeshjD1fgtEp4FzCSq3YTrL zzpJR8sf0zInQM7ioO+mK4BJY5FyQMB7ij5OPzRb/NwE3sjD5EtgWZPCKV38H7Mt/2FZo/iZZuT/R/zY 6FXY7sJn84EE0iVBoN6Qbp7Ymk2egkJxSl8EzAvbt/ Ko6ecaJk14+9za+mObXdXNst75lJzVZFrSt8Jnh2UOibSzwCrdwpGiLb6XgcemdaQA2gSe3KVg0nE6ru AGJSNDjE+hk1s6BbJGqUQMVDOc8aNyA1EbDFH2IEjXwKCBC678lCrX5/V3G04iwa5rxwpLRo4SMWzIt0 6Ik2852x7TAQ+YAUiTc3cpC5KdDmX0W2xZUiLiWbVU h+IhtXiQuCLv4x212Gk+82xFlpBzP7QOBWvmdol39iz7egzhptaLZVdPYmXeMBsh1HTC3fF4695JiW38 knBp4cTLRJsB38z+l5icl1T5WPmhGo74Kzh0WHHN0pfYEu0UmK/2z4tR8whS6v3NbNcDKbYqYofJOWqO vTPFOQrAkB5c2p/h64bAFtT7AXGqpFJ11hi7NtFiel 2yZ4j4A32qUL5utf7T+pJBwLfq0yd7sFJr6fuMeYBoI0NDegRpCKgjqT7XxfS4qcO/EUmsMSWxdZZKeG tQMbcFKxP1SJDPjUJeZPmYjRyDH7gvLJx9LxD0AyeRBkRk0tScYvz/wp2FS5cFOCjTCxuR/vlIjkIou+ +hZp+YOd6AI9JmogPF9TG5QYmX6vg8i0iRYe7/F2Gp x2Fv8AG008GJ9OCICE9DjApTeQconmcILBz/fG5cqHfIkmEUFXbV7cZQ0vea413H4+zh+HzXMsPDxzv4 +tRf9o2wiFa5wouXWAeX1Ao3tbN/Xw4zl4DEbo7vHwe3Na7Ofii8Vr7szwWbx/TTcN1iBvhhlWHAjjyg eXsynb6Ec/Mo7WPXFIkvChr7WkEkpI7umVT238e1M5 [address] [place]/Lf/wI14+zw5121jtxbKJaPkSfbZU6jvImDzzjuzteTUMrQL0mt6NoaSPjSHN5GQI3cv8QoSBVrIZ [file] XJS6XNNd== ID Date Data Source [id number] 06/12/2021 01:37:55 PM EDT [facility] Name Value Range Interpretation Code Description Data Arabella rce(s) Supporting Document(s) Care Plan [facility] ZNEBDp3gIlBUMsJl70/XWWutHNQuk1DwUVviEWc3UMnwEIUfU8TrJVU0sN7kLYR3UZwBJeUhSsOaLMR5 lbm [file] ICAgICAgICAgICAgICAgICAgICAgICAgICAgICAgIC AgICAgICAgICAgICAgICAgICAgICAgICAgICAgICAgICAgICAgICANCiAgICAgICAgICAgICAgICAgIC AgICAgICAgICAgICAgICAgICAgICAgICAgICAgICAgICAgICAgICAgICAgICAgICAgICAgICAgICAgIC AgICAgICAgICAgICAgICAgICAgICANCiAgICAgICAg ICAgICAgICAgICAgICAgICAgICAgICAgICAgICAgICAgICAgICAgICAgICAgICAgICAgICAgICAgICAg ICAgICAgICAgICAgICAgICAgICAgICAgICAgICAgICANCiAgICAgICAgICAgICAgICAgICAgICAgICAg ICAgICAgICAgICAgICAgICAgICAgICAgICAgICAgIC AgICAgICAgICAgICAgICAgICAgICAgICAgICAgICAgICAgICAgICAgICANCiAgICAgICAgICAgICAgIC AgICAgICAgICAgICAgICAgICAgICAgICAgICAgICAgICAgICAgICAgICAgICAgICAgICAgICAgICAgIC AgICAgICAgICAgICAgICAgICAgICAgICANCiAgICAg ICAgICAgICAgICAgICAgICAgICAgICAgICAgICAgICAgICAgICAgICAgICAgICAgICAgICAgICAgICAg ICAgICAgICAgICAgICAgICAgICAgICAgICAgICAgICAgICANCiAgICAgICAgICAgICAgICAgICAgICAg ICAgICAgICAgICAgICAgICAgICAgICAgICAgICAgIC AgICAgICAgICAgICAgICAgICAgICAgICAgICAgICAgICAgICAgICAgICAgICANCiAgICAgICAgICAgIC AgICAgICAgICAgICAgICAgICAgICAgICAgICAgICAgICAgICAgICAgICAgICAgICAgICAgICAgICAgIC AgICAgICAgICAgICAgICAgICAgICAgICAgICANCiAg ICAgICAgICAgICAgICAgICAgICAgICAgICAgICAgICAgICAgICAgICAgICAgICAgICAgICAgICAgICAg ICAgICAgICAgICAgICAgICAgICAgICAgICAgICAgICAgICAgICANCiAgICAgICAgICAgICAgICAgICAg ICAgICAgICAgICAgICAgICAgICAgICAgICAgICAgIC AgICAgICAgICAgICAgICAgICAgICAgICAgICAgICAgICAgICAgICAgICAgICAgICANCjw/wEQcE6tstE QxebT9P8dgXa9RXj1JEL8jn8KfFVSbQKjpxlDvWppLNrIaQZHqQtdUJxt4EGnmIA6EkSImC4SeO6MgYA vbLU0OVYRiFDSsxVFfOEZlVABrAnI5AFMxJMzqLD8J jFIwADbyUSNbZFNaJxFaLKRtHU8MDSCpK687qzEqIk9WNw2OMwUtLH7ghr2OShbuDVVlMwqYQbm7USer AC8PdLTuuKKhADAjOUKGDpEwC2duo0ZeMhxaKKUQGFipTD8Yg7UopVSoAWh+Ep7JEW0ik7OmJGxqBHEa TX3zwe0SZJfOSxWeD2JfrPqkOYMrreWeVDftfzOimV ATMYGfPPNvj21tukssZv5tFUTuRJXyXU8gSZWkLAPtFuO4MDJSGZ3SCKKtOBSxdVMsQPHrEHCUHO0AUO poNHJ1VxvhmyBxdBVeLBdoNI2DLIOqtnBwDwyeMBUVMTr+Ro4WRT6wh9WzSZvuHLKsLZ1gip8DPNjXLp EwN9T3yPZoR2V1FGckAp5UUGCbVALsXtHaMCIGMIob ZX9PCP1holN7ZB9AdZJbMXVaBPJtcVWiLKr1J86aoYVrOPzcPR3ZCAS+Mau+Rc0INATbNYCoTDJtOkHu OFGWEoBdC8PsV6VYf1ZpQ8ReCI61pXvxoxMfQUqdSG5WHA4xMMPrXXJDIN6BaWAulZ3juiCkGwAoMHEY KuBzX34gsEHeCUMtPGG6STXpJb6WMGAsI6PrjkPfiH xbswCiVDTsLQSZOM0TCDyvglHhnOXirXtcPF61rYglIS6VNb1HOgIlWT3hzw5RjXCjFm9YPGEzAP0VLJ GwVAOmLTNiLTC9NLBjVwPyAJslKJOnXYBnDSP3WGFvSWMjXE7LQnLtEIGcJoT3UdCiZKJoGHDslp1HFA XkMJBaHtT9OMVbAVHzHEGyZUjeYBBsGNMyTJB7HFUd YOMxFQ7UXgMaQUSkOFNnJNAfAXHyHAQlss9AELEmTXBjBjU5UYZzJAJfLCIiALahMKRlAXDnPFU5OXFu EXYhWH7SIzZxCOMkYMEfNxEfHNSzGELwyg0JWNHgFSKkHEX9IVXkDWNyPZMwFDvvTPWwMQQ5EbwaLHYa HGTdMT3IRxWePAByHCV2PnUkXYIzPEUrbk5GOQWeSF YdMEVwZsPjPCPcLAKrRBucJPEiPTN9EcHjXTYsMQUuDM0BWoUbEIKuFVE4DTZlDEYcDWJisl2MPYLnYJ RoBEO3MNXhVTBlBAFrDVpoLNLgHGW1LKzxFFHcVBDoAH6GBjLgHJOjUJh7UQCaAJKaDKSckt3BFAVsTE EqXYWnVUTuTSXtJYKlHSxnPDUwCXG5QTp6WUUhHQEn BK3BXiIkLDUvFfDvVQzlEJSaKQEcig4XMVFyXHIhFMZpIlFbVTTyLBOoTClqSEJpANYwSAOnJOUrMXQg AW7VJrYkHLWkFoN9LKRtFXTgBCHpbh0KRPAmFSJuYGEkFZBzSMPmUSHdYYvyTBAiFMNpPBNvQEYbJAKz OB4UEhGvGCNzDzEzGhQvCWKlCZVplz5SLIBuPQIeVk U6NXLnLWUkSDHqXDrxGCPqQDCdBuFxGMLxIOTrQL0ENbYaHQEqQtT7PTUyLOBoUDDtzo9CaWTroVtfki 2EMBxJNe0TgRbkEUKbLEqdYj6awCAqTRFqCHWAKe1PqpIeLVPyBJOQUGlsHXBdZSP3HeOqMic1QWAhCO S3EgOoRWRnZGTnS4XhSOA7OvudUyO3CmLyCDFlAfD3 MLJiGUprSnYuRcSoGiWnHnN4CoP8MDU+MV4sAAg+If2Kt0DkitN4gpWfRFxhBTQbBE4YDDBDC3MXHx== ID Date Data Source [id number] 06/12/2021 07:13:03 AM EDT [facility] Name Value Range Interpretation Code Description Data Arabella rce(s) Supporting Document(s) Nursing Note [facility] ZLSVTe6oGnPSQgHl85/OAQmwTJIyl4RcQRllTEj9HSvfNPXmT1RjYOS6dX2sJZN8DYuSTjHkClMdNEG2 lbm [file] A0OYCgABpbHtGkWMPnVNTkGdTaAV3PHv2FRaJ6MZW6kSCyLm2UBcAjYEhRXeQsDO9TZJz= ID Date Data Source [id number] 06/14/2021 08:35:00 AM EDT [facility] Name Value Range Interpretation Code Description Data Arabella rce(s) Supporting Document(s) Anabasine 23 ng/mL <2.0 Above high normal [facility] ADDITIONAL INFORMATIO N This test was developed and its performance characteristicsdetermined by [facility] in a manner consistent with CLIArequirements. This test has not been cleared or approved bythe U.S. Food and Drug Administration.Test Performed by:[address] [address] Director: Rashawn Vides M.D. Ph.D.; CLIA# [id number] Cotinine >1200 ng/mL <5.0 Above high normal [facility] Nicotine 286 ng/mL <5.0 Above high normal [facility] Nornicotine >120 ng/mL <2.0 Above high normal [facility] The above 4 analytes were performed by [employer] ([id number]) ID Date Data Source [id number] 06/11/2021 09:02:00 PM EDT [facility] Name Value Range Interpretation Code Description Data Arabella rce(s) Supporting Document(s) SARS coronavirus 2 RNA [Presence] in Res piratory specimen by MELINDA with probe detection NEGATIVE [place] This lab was ordered by [facility] a nd reported by [facility]. ID Date Data Source [id number] 06/02/2021 01:34:04 PM EDT [facility] Name Value Range Interpretation Code Description Data Arabella rce(s) Supporting Document(s) Consults [facility] EVIXDw0mWvPVFlQf08/IVUvaCQFgb9CiWClvJBt3DOvyOTZuD8NhKOA4cY2xUEP3XXkWZaPlKjAkGKZ7 lbm JhDdlXXrZzIBItJlrBDoXbKOaxQirmsIKjVM9JoFB5EIXkD50yBVTwQVLdE6BcOZKsMkb+Cb8GXDDvvC CpYU2VUsxS2Q5KkguPJz2cWk3yOtlnPAE4v5/pLKoOQIcrZFe69IgLwLXDYoBoXdCG/Vol0qElo9RN40 OzoKTEPohTO+jr6wd4hBNq/vtdHaVxEARq+//Dn2lu 1NWd+gvi1G4joW971s0uuqmOWBRJuiIJ5p9RY/0TFG8mVzu/yF8YtfVnzPnYoJsZtGtxPiTo1VJ70eX+ lt1S87BHK9ZnAkApg9GL3LSZ6xEuxqgQ8S6wKz9iKw1Tp/lhe9AwG5TeyVEXZPzQ05hqucCZhwxz5HZk 6gs34HlKwfFwX9pd/oUbNJ5aiY5AVXZn4hdAoiH1gd NAPOLEON/xAdNcMt4rtBJe7pChIAlPpf1jlQRWOoMZ8udWbtULWTbs5L3QPt+t58cJ1zVsTWVR2fE27MTAuyE [file] icXMXXPhY6EtnaDJjwVUTMMo4U ID Date Data Source [id number] 05/05/2021 06:37:00 PM EDT [facility] Patient: KRISTIN SIENNA M [facility], [facility].VisitID: [id number] [place] [address] [phone], FRegistration Date/Time: 04/24/2021 22:55 Weight:68.9 kg (S). [...] rce(s) Supporting Document(s) ID Date Data Source [id number] 05/04/2021 04:34:32 PM EDT [facility] Name Value Range Interpretation Code Description Data Arabella rce(s) Supporting Document(s) Discharge Summary [facility] XBXHDx4gDmGDCmVz71/NLJcxRIRxg8ZpGAuaYYq0NPujHRSgR0HsCRV2zM7uGLL3NErDIpOvFbPtXYU2 [facility] [file] OYIjK0PuHR3kIIEUNq1+PByeyWFapYozZPEGKdBcVTA0MFpwNWMVWg3T ID Date Data Source [id number] 05/04/2021 03:25:37 PM EDT [facility] Name Value Range Interpretation Code Description Data Arabella rce(s) Supporting Document(s) Nursing Note [facility] IGEJDn4gBgBZXrBj06/ZONkiEPLkc3GpZFsdXFh1KEoeHGAwN6PwLTM0aE8tCMJ9WRfWGaIjRzWlJYQ1 lbm [file] T0YNCg== ID Date Data Source [id number] 05/04/2021 12:56:29 PM EDT [facility] Name Value Range Interpretation Code Description Data Arabella rce(s) Supporting Document(s) Care Plan [facility] ESPBJz7kNpWBVnYt99/EEWwqCCDln8FjRWsvTOf3ZDiqKBLkR5SaHUJ0pI8hNYM6JMcBEqGpLmUvSGW5 lbm [file] LeMkBiMnckP8OnIftuFeB8EeTkHE8OKy9VEpU3RMU6zKEkJz4KAlR8WUBXDvNcNZ8LBDv= ID Date Data Source [id number] 05/04/2021 07:13:56 AM EDT [facility] Name Value Range Interpretation Code Description Data Arabella rce(s) Supporting Document(s) Nursing Note [facility] NINYXc5kMxKHYeIk61/SQTwdIJEmy5BrYPyeKPl6AAgtCCLsH5YzIBT5kZ7uRKR8MBjYAoOwAcAmDAW2 lbm [file] TwXjPyNZ9AMq7XTsR1FKO5aYJmXf0KSwHkMEZATeOzPT4CBUq= ID Date Data Source [id number] 05/04/2021 05:39:00 AM EDT [facility] Name Value Range Interpretation Code Description Data Arabella rce(s) Supporting Document(s) Blood Urea Nitrogen 15 mg/dl 7-18 Normal (applies to non-nume ny results) [facility] Creatinine 0.78 mg/dl 0.51-0.95 Normal (applies to non-numeric resul ts) [facility] N-Acetylcysteine (NAC) and Metamizole em ve the potential to falselydepress Creatinine results. Baseline values before medication adminstration are recommended. Patients undergoing treatment with phenindione will have falselydepressed results. Patients on phenindione therapy should be tested with an alternativeCREA method.Toxic levels of acetaminophen may lead to falsely depressed results forpatient samples. Glomerular Filtration Rate 83.00 mL/min/1.73m2 [facility] GFR Reference Ranges:Normal Function or Mild [...] of Health and the National Kidney[employer]. The [place] method used in calculating this result is traceable to IDMS standards. Glucose 86 mg/dl 70-110 Normal (applies to non-numeric resul ts) [facility] Sulfasalazine has the potential to false ly depress Glucose results. Sulfapyridine has the potential to falsely elevate Glucose results. Baseline values before medication administration are recommended. Calcium 8.5 mg/dl 8.5-10.1 Normal (applies to non-numeric resul ts) [facility] Sodium 137 mEq/L 136-145 Normal (applies to non-numeric resul ts) [facility] Potassium 3.7 mEq/L 3.5-5.1 Normal (applies to non-numeric resul ts) [facility] Chloride 109.0 mEq/L 98.0-107.0 Above high normal [facility] Anion Gap 9.7 [facility] Carbon Dioxide 22.0 mMol/L 21.0-32.0 Normal (applies to non-numeric results) [facility] The above 10 analytes were performed by [facility] [id number], ,[place] [address] ID Date Data Source [id number] 05/04/2021 05:39:00 AM EDT [facility] Name Value Range Interpretation Code Description Data Arabella rce(s) Supporting Document(s) Magnesium 2.0 mg/dl 1.6-2.6 Normal (applies to non-numeric resul ts) [facility] The above 1 analytes were [facility] [id number], ,[place] [address] ID Date Data Source [id number] 05/04/2021 05:18:00 AM EDT [facility] Name Value Range Interpretation Code Description Data Arabella rce(s) Supporting Document(s) WBC 5.61 x1000/ul 4.80-10.00 Normal (applies to non-numeric re sults) [facility] RBC 4.13 x1Mil/ul 4.20-5.40 Below low normal [facility] Hemoglobin 11.1 g/dl 12.0-16.0 Below low normal [facility] Hematocrit 34.4 % 37.0-47.0 Below low normal [facility] MCV 83.3 fL 81.0-99.0 Normal (applies to non-numeric resul ts) [facility] MCH 26.9 pg 27.0-31.0 Below low normal [facility] MCHC 32.3 g/dl 32.2-37.0 Normal (applies to non-numeric resul ts) [facility] RDW 14.6 % 11.5-14.5 Above high normal [facility] Platelet Count 235 x1000/ul 130-400 Normal (applies to non-numeric results) [facility] MPV 10.4 fL 9.4-12.4 Normal (applies to non-numeric resul ts) [facility] Neutrophils 51.3 % 40.0-74.0 Normal (applies to non-numeric resu lts) [facility] Lymphocytes 36.5 % 19.0-48.0 Normal (applies to non-numeric resu lts) [facility] Monocytes 9.3 % 3.4-9.0 Above high normal [facility] Eosinophils 2.0 % 0.0-7.0 Normal (applies to non-numeric resu lts) [facility] Basophils 0.7 % 0.0-2.0 Normal (applies to non-numeric resul ts) [facility] Immature Granulocytes 0.2 % 0.0-0.5 Normal (applies to non-nu meric results) [facility] Nucleated RBCs 0.00 % 0.00-0.20 Normal (applies to non-numeric r esults) [facility] Abs. Neutrophils 2.88 x1000/ul 1.92-8.31 Normal (applies to non-numeric results) [facility] Abs. Lymphocyte 2.05 x1000/ul 1.20-3.70 Normal (applies to non-n umeric results) [facility] Abs. Monocytes 0.52 x1000/ul 0.14-0.97 Normal (applies to non-nu meric results) [facility] Abs. Eosinophils 0.11 x1000/ul 0.00-0.76 Normal (applie s to non-numeric results) [facility] Abs. Basophils 0.04 x1000/ul 0.00-0.22 Normal (applies to non-n umeric results) [facility] Abs. Immature Gran. 0.01 x1000/ul 0.00-0.02 Normal (appl ies to non-numeric results) [facility] Abs. Nucleated RBCs 0.00 x1000/ul 0.00-0.02 Normal (appl ies to non-numeric results) [facility] The above 24 analytes were performed by [facility] [id number], ,[place] [address] ID Date Data Source [id number] 05/04/2021 01:18:34 AM EDT [facility] Name Value Range Interpretation Code Description Data Arabella rce(s) Supporting Document(s) Care Plan [facility] OGEWSv5dDtVWQiAk90/UQDdmAKZxh4SjLMzlVAr9QOhoMZHtK3XmSZG3kM2jRMY6PAsPHkVtJlHsETN2 [facility] [file] DDrDN9717IUfxiLlsYn+ntFR4unIAp1pjiJtN6UcPXBx6kW99Cl1z+8j94CsEW/IRISH MOSS BLEACHER/wQxT8XnD86FNvN [file] ICAgICAgICAgICAgICAgICAgICAgICAgICAgICAgICAgICAgICAgICAgICAgICAgICAgICAgICAgICAg ICAgDQogICAgICAgICAgICAgICAgICAgICAgICAgIC AgICAgICAgICAgICAgICAgICAgICAgICAgICAgICAgICAgICAgICAgICAgICAgICAgICAgICAgICAgIC AgICAgICAgICAgICAgDQogICAgICAgICAgICAgICAgICAgICAgICAgICAgICAgICAgICAgICAgICAgIC AgICAgICAgICAgICAgICAgICAgICAgICAgICAgICAg ICAgICAgICAgICAgICAgICAgICAgICAgDQogICAgICAgICAgICAgICAgICAgICAgICAgICAgICAgICAg ICAgICAgICAgICAgICAgICAgICAgICAgICAgICAgICAgICAgICAgICAgICAgICAgICAgICAgICAgICAg ICAgICAgDQogICAgICAgICAgICAgICAgICAgICAgIC AgICAgICAgICAgICAgICAgICAgICAgICAgICAgICAgICAgICAgICAgICAgICAgICAgICAgICAgICAgIC AgICAgICAgICAgICAgICAgDQogICAgICAgICAgICAgICAgICAgICAgICAgICAgICAgICAgICAgICAgIC AgICAgICAgICAgICAgICAgICAgICAgICAgICAgICAg ICAgICAgICAgICAgICAgICAgICAgICAgICAgDQogICAgICAgICAgICAgICAgICAgICAgICAgICAgICAg ICAgICAgICAgICAgICAgICAgICAgICAgICAgICAgICAgICAgICAgICAgICAgICAgICAgICAgICAgICAg ICAgICAgICAgDQogICAgICAgICAgICAgICAgICAgIC AgICAgICAgICAgICAgICAgICAgICAgICAgICAgICAgICAgICAgICAgICAgICAgICAgICAgICAgICAgIC AgICAgICAgICAgICAgICAgICAgDQogICAgICAgICAgICAgICAgICAgICAgICAgICAgICAgICAgICAgIC AgICAgICAgICAgICAgICAgICAgICAgICAgICAgICAg ICAgICAgICAgICAgICAgICAgICAgICAgICAgICAgDQogICAgICAgICAgICAgICAgICAgICAgICAgICAg ICAgICAgICAgICAgICAgICAgICAgICAgICAgICAgICAgICAgICAgICAgICAgICAgICAgICAgICAgICAg BJIaAIXmLNJhZYDkLIk9I8dyHNUzZLFkBI7gIDn9Fl 8+TXlYUjPhCPX9fwDddU2SEE6pe9OnPUnbUCQqg7GnLOr6YH3YIIViEUzzNR1LHGhhie7WMSMfJMBbzB MWr0bfEgIfLKM9VENmAoksUH2FYMGjU6ndhnCuSRTdDGXPLT4GIrQvF3JsbJ88NKTTYo8+DQplbmRvYm rPUkSnFUQkc4CiQIx7PM5NWYYxOqvlg9GlCfXvLAIG NBohWZ2SCMM5AJKcVOFfTa7ZQZQgI727oqPjID0MOb9XRdXqGM9jup8AVdHpMHZdCjdGJvt7UEbeUA3W tBGeEDdVCPYtWMLgTM7fAratNiC8OLeuoSTlAqazs1AhJ0clZLDTQHU0XZcqGuSlHjMaHBFnAGmxJFPH OSyOOdMvT4Lso4EwItA7AHSaFpWfPCxhBPPrOtT5RK 05zNdsRG2FDVBnYZJwLZ44VQVaYVDwSe8YRh1IMcHgUA7fse9KJxRzXLGdJneGSeg3PPquWD7UgQExC4 PxmAYkt4fUPfQdC2STIIT8MENkVq1PULMxVgElUKCqELyhZL8uPHJzIFHZlFmvmsG9BX8KNO5inwVmUO 5ZTsQzAg7rOm9GVsWvU3FqY6PzVHDzNXUJVZpzFL5W TGpcGV8bAZ3Ej8VHdDSxkI3csx9JUWGtGHCxFxnumk7HHshgQ5Q8hGbeSHGyKrRdRBSEGIohRR8SPBKa FLM1MRXjRGGfQPGODrGiT64dHL3LI1Sha86tQlH1AAYcVbRgPAjjTQ20jWptaqYnkOJnzLjhMY4YIc2+ DQplbmRvYmoNCnhyZWYNCjAgMzMNCjAwMDAwMDAwMD VfSiR1PrOfRa9VELHiNLRjLCDlNtZvDPUfXRAfMSjyGRXmKUCdAKC1GIJdWYKrTX4NDiEoCXNsGGXsEM RuUGObWBWdix4SWCQkNNAvDNW7RcKhZRMgNBBtQXepDPIvQRSaVYE2BCGqBMGwOS5KGuOnKSRuJWLuAB BjGNPjTWPskw5SIUKuRKCvTCP8BGJjGLGaDVRxMAdq KTCbXYI7EmqdVUTaTWLiOS0IYcQvMHSvSYX3LKlnAXKqSGKyss1YGSNhHFLtADNqIkLlLJZtNVFsQBcs EBKqKUQ9VaFsAGRqKVRbPL7OQbHwPSCxHDA5IJRmZKIhATNvuj1YQWLkPLGtRFH5KONtCZZbBWLxSYwm VQFiRUX7WHYxQBBfLWPlCH7GApCvGVAjFMp5IfrfJF WfETIttz1YZSWqBJCxZAtqHUWkGKZeLNQrCJbnRCUmYWR3OQI0PQSfRYEkUY1FYuMcIDOtVTx6XFwkSV ZaXCJema8TRWOrLODpFKP5FRWqLLNrFCAfKHxhSSOeIGWjSxetQGDxBRBfEK7IFbWbZFXfGvMmZwGaQI QqMTBmig9SEVJsVLMpJNKgLRQfMCWmKVQiRQrfIYUo VDOvEoooHXGkXFNkRB9NIfPsSHVeOqsnIQNrWMSpCYYrcf2OJNMeRBVzGNSjFHEzEIAsQTJfGQruBLXw KNX3CFA7WRJlEBEdHK4KCgZlMWAoTIGjPVgxCGYnHLJysz2FGWXyQNK9OIMrDGRbKNCmLYInQOnoIJSb DXMmVEEzECZhVLBcME7FSaMpFIHeAURoKNIvVTPlDW Dvwo4BWIEsZSV5BqA1SaZsTVAbHGMiXSnkNPOzZCWhFtM9TADvLSCiFU0RJbJmOHcqLEBKYub0RTdfZ3 d0HNMsBd6NR5Bzb5YeNrYaWLYCRDmyBI9ihfGcGZKfBc4LU8kMUpd5GsWwUIM2VBZhCLLeVFZvB4AxJE MkIRZgIyZjIyncNS4eSIk7ZfG4Sur1WGT2OJWvWiSb DIDlFIJ0LJSbPoBxEIH3GxNnDW4AYb3CCaK8ATA9aTFjZo6SGMV1GDNILiXnLD1VGPd= ID Date Data Source [id number] 05/03/2021 04:14:39 PM EDT [facility] Name Value Range Interpretation Code Description Data Arabella rce(s) Supporting Document(s) Progress Notes [facility] MHCMOc7iPfDKNmTc99/NCEtvTUZgg8EzRBksYBj6CDwzPHZtA8NaCEK2zH0jEGT2JRlMEbJuJhJoHST2 lbm [file] D8kIKgJo0IVOa3EEYSMwXrEK8TJEp= ID Date Data Source [id number] 05/03/2021 03:38:36 PM EDT [facility] Name Value Range Interpretation Code Description Data Arabella rce(s) Supporting Document(s) Progress Notes [facility] JXHMOe2fPqEBPjXq99/RCLgpIYChi4TrGNwfXWz0ENugDRIiJ7QeFWR2kJ7dPFV2GEtEHkDdFqHhVRX1 lbm CwEfbJHtNcRXWqMroTYkLoIPluQbtthORdQC2DkSZ8FLHnC09zTYPrKJPbO6CcFLD0KAw+Ux9MGIYpbI WzJE4DQglT6QtwH+W40dtD2o/2mFAX6Pc5w02aRYEd2nxNZfZclfeoPbv3LN27mshXh2N//ixV3oMS6z WaS7dsYMJQOLphf6sMRZVIxDbdO7OHCWGClLtc/CpT [file] AgICAgICAgICAgICAgICAgICAgICAgICAgICAgICAgICAgICAgICAgICAgICAgICAgICAgICAgICAgIC AgICAgICAgICAgICAgICAgICAgICAgICAgDQogICAg ICAgICAgICAgICAgICAgICAgICAgICAgICAgICAgICAgICAgICAgICAgICAgICAgICAgICAgICAgICAg ICAgICAgICAgICAgICAgICAgICAgICAgICAgICAgICAgICAgDQogICAgICAgICAgICAgICAgICAgICAg ICAgICAgICAgICAgICAgICAgICAgICAgICAgICAgIC AgICAgICAgICAgICAgICAgICAgICAgICAgICAgICAgICAgICAgICAgICAgICAgDQogICAgICAgICAgIC AgICAgICAgICAgICAgICAgICAgICAgICAgICAgICAgICAgICAgICAgICAgICAgICAgICAgICAgICAgIC AgICAgICAgICAgICAgICAgICAgICAgICAgICAgDQog ICAgICAgICAgICAgICAgICAgICAgICAgICAgICAgICAgICAgICAgICAgICAgICAgICAgICAgICAgICAg ICAgICAgICAgICAgICAgICAgICAgICAgICAgICAgICAgICAgICAgDQogICAgICAgICAgICAgICAgICAg ICAgICAgICAgICAgICAgICAgICAgICAgICAgICAgIC AgICAgICAgICAgICAgICAgICAgICAgICAgICAgICAgICAgICAgICAgICAgICAgICAgDQogICAgICAgIC AgICAgICAgICAgICAgICAgICAgICAgICAgICAgICAgICAgICAgICAgICAgICAgICAgICAgICAgICAgIC AgICAgICAgICAgICAgICAgICAgICAgICAgICAgICAg DQogICAgICAgICAgICAgICAgICAgICAgICAgICAgICAgICAgICAgICAgICAgICAgICAgICAgICAgICAg ICAgICAgICAgICAgICAgICAgICAgICAgICAgICAgICAgICAgICAgICAgDQogICAgICAgICAgICAgICAg ICAgICAgICAgICAgICAgICAgICAgICAgICAgICAgIC AgICAgICAgICAgICAgICAgICAgICAgICAgICAgICAgICAgICAgICAgICAgICAgICAgICAgDQogICAgIC AgICAgICAgICAgICAgICAgICAgICAgICAgICAgICAgICAgICAgICAgICAgICAgICAgICAgICAgICAgIC AgICAgICAgICAgICAgICAgICAgICAgICAgICAgICAg QLAzOYs2V7dlIDNfSEBeXR9lPBx9Ru8+PQyIBpUaEOI4nuDmvD8YRT3nb2SeOBvcMGUen0BiIQq7WH7C EERkAJbpCO0YDHthat9GOUBdDSAybXFGh2vlBgQuXJY1PGLqMxkoRN9ZMWPxS5dsvwEgQDGdFIHAOQbd ZCGNQRlhNUQPZXDqBFBqDxDqATtfIS0Pf5IhsXZ0LO o+Nt7DXL8dl4YfHPl7KmEhVQ3abt4FGXiAPeGnZ7IkgvB3SYE4CINfBn1PQSRwLQHbqHI4QYPhMMMJVy JfS7GzwJ35LWUFRi1+LXsxopRsTxmWBzQ3OLAcl0EvDTi8XK7HRXPbGAg4kSHvNRVzR0Sld3VrNx29SG EsLgeuREWjnoRTQ4OkhsGuuVjzMvErW1VDSKB8COcq FoRdGwQuIYXzZzlzUPILTImRWmSfU6Pms9SgIaM6HJOnHySvIFsnHIQoUmC3MP12kCxnRH0VQFToNHLm BK22PTL7HMWqKc8FUf3BYjTzBB0atk0MJGsrXZDrBcwICqv7IDvmTJ5YdMMbN3KxiSCwk4zTPnEcG9CD DPB9LOLpAn8RGYWmUcMvQUYqXXpxJZ3xFOLsAAXGrQ xxugT7TI4CFS9ystRhZX0XIzLlCz0bJm1GPiBgM7XlH3LfNIYzHIMFSMshIA2HWMoyTR3cBL7Ro4KFaH QjkY5ipj4EWQLkQWHmWdsvjx6ATdvwV8E0nLjbZSJmYQgmBMGLCWpbJQ7HVPYnIJK8VGO3BzQnXVDUVv GfV39xCJ9SO5Rln83gNoV8JFRvLyLcBFciXS12iOfm giCmaHKqdYowYS3UTh3+TKukucAoSsvUYzoqWCCZPkUzYQSTUuWkDTPvXKEiTGGiGpO7GnFdAm5OWSUd ZMJpLGJaNuRsEURjNOBhQGqyQZRyDGXdHJI4VIMmDEGyUF2XVkShYUHlEQT3YfgzEXIgQTWdji6IAKCi TISyHVW3WzKiSSIrYOOlCLfgRSXgTXKtPsb4SBUfAX WiYP5LGbNiPNUhRMZ5TUPlITLlQDPejy1RSQMhYPZoCZA3NKAfIQTgCZTkOXicHBIdUZP5Rrc1UXXfIC XtOK0PExWeRMCeHYg1BCklXHQiUWCdlx1YIXDfPZTtBtxyYvEkYKYtIFZiFQbdQTGzFOJ2QPV1QVVcLQ HvSD6VLzIcKBKpMJy3MZOpABJoTREucg1OOUBnBUKb VXyaRUHaIAZxFVDnJLdqBXSnZFWbVOAiFOVaPFZgZF4ZIfRiXEJaARNzOEBpRRSqYHQwbj9TCXRhVOAd RzH8PNMlWJYuVHUrKEckBHSfFMDpMdM1LYJqWZHySO0VZsQuSSBePNG0IdDiWELwXNCift8LOCWbINSd YFt2ZESxOFJsPNIlOIltCKAtGHP5AWj2HSNtGQGhMF 5WKuGlSYZlDpMmRDDkPCUeTXJnyx2PAHUqZDXeZVE7TCAeWZGaMTQxQLwjRSDqIUZ5PfnkXWSxPFEyAD 2TBkJdLXBvTlL2JwAgFSEiWSPrgs9SNFTzRRBiZeskBUEvDSYcQOCjBLqaYZQnXFF1JRIfVHXrPNNfVQ 5AGcHfQDUpFzk7TOOeOARuUPBjzc2GOBCwKDWqSOPd UEDvVBYnQEAaRXfvSULmHEK9JjSwPQZzLDIzUW6EYcVsMTWcAvndTVJsBVZfNOForo1YVSWsBVHwYKPo ZOMqHOIpOOUfSZuxIMUwJHQ8JsWiCJRfJWRfGT8JIoQgKQOcCXY0IkFjWBFsFBMbkb4OICAdCMP8OgK8 QlUlZAJxFXArXIhoKIVzPVAlPWI4JOPvRXXlRS8AEd TaFYVsYQH3NSsyMEAvGPJqjr2GFHJkPJI2Yib8CuVfVBRrOKSmHIsbCCXvOSU6Nee2IFHpYBQpQF5YTc RfZMNhZZX9TQNtSQTdNHVkrb7YAACsKXG1WSQ6OUYnNYGgTFZlVRdiVKRqLKWkADA9QOEwQFHbML1FCu OuEGQbEDXoUtFvFKGcAPHxio6XILXpERK5PJI9ILCw HCNrNCUlJXhwKTVqNBPlQlk7XDZgLPZfBC1VErMlZWAlHCP3HfStZYJtXZLcgn4WERPkRYU4GSOcQUPc FFSeNDMzOTicSLSyKOVjNJh3UTVaFYBzKH8JSiLaNUIvXQD8VPkrERXeYQNtto6WHAQuMMQ8LnBmRRMm XGYiIIKhPAh3tvHdwOFfDYl0ZN9HV5CdrhBvEYOORz 6Up604JKK0NMFfJy0JE3vuJf2dEZOtWHCJDi9BZIq2KcIwIuYcYxNaJCIhDiN7CZVmUJVqRFZjRJI6LI E5NTE+ZJzrJLFtBxYbOwU8HcM1MyqzULG0RsU5XhVxXpn2RHz4ZW6iWKUIMa2+DQpzdGFydHhyZWYNCj NxIqAlJBgbPORBQr2C ID Date Data Source [id number] 05/03/2021 11:35:45 AM EDT [facility] Name Value Range Interpretation Code Description Data Arabella rce(s) Supporting Document(s) Care Plan [facility] GSFTLo2fCqAMUzNa52/BSDvhGVRcd4LrTDweGEw8TIzpDSOaR1KvMCM8jR8hCKT4GSuROuQxHoFqXVI7 lbm [file] DQo= ID Date Data Source [id number] 05/03/2021 10:15:39 AM EDT [facility] Name Value Range Interpretation Code Description Data Arabella rce(s) Supporting Document(s) Nursing Note [facility] MFJQRf5vUrIEDpYq59/AESviMOCai3XgUIhgVVc6EZwkDXXaS4LgMUL5jF5mQJV3RRgNShWmQxVaRXE5 lbm [file] PxF1MzMePZ2AOx4RNqB7KDY9oEGiSg3YKjI6UUVTEtEzRD3IOUp= ID Date Data Source [id number] 05/03/2021 09:38:41 AM EDT [facility] Name Value Range Interpretation Code Description Data Arabella rce(s) Supporting Document(s) Care Plan [facility] NZXKOc5iGaHZNkTl48/ZLAmnJZQyb8ElEPeaOEx1SNaxVZSpO3UcTHF6kE7xMOR5QFpFUlTsMzUkYNE1 lbm [file] 9GDQo= ID Date Data Source [id number] 05/03/2021 07:07:07 AM EDT [facility] Name Value Range Interpretation Code Description Data Arabella rce(s) Supporting Document(s) Nursing Note [facility] EWKXPw1rOwABVcPs45/MDKkvGTFpl3RnVTaiRIw2KTsxXJBhR6BbJHA8pO2bNRV8GYpXFpWjRhYqZAR2 lbm [file] == ID Date Data Source [id number] 05/03/2021 05:12:00 AM EDT [facility] Name Value Range Interpretation Code Description Data Arabella rce(s) Supporting Document(s) Blood Urea Nitrogen 11 mg/dl 7-18 Normal (applies to non-nume ny results) [facility] Creatinine 0.72 mg/dl 0.51-0.95 Normal (applies to non-numeric resul ts) [facility] N-Acetylcysteine (NAC) and Metamizole em ve the potential to falselydepress Creatinine results. Baseline values before medication adminstration are recommended. Patients undergoing treatment with phenindione will have falselydepressed results. Patients on phenindione therapy should be tested with an alternativeCREA method.Toxic levels of acetaminophen may lead to falsely depressed results forpatient samples. Glomerular Filtration Rate >90.00 mL/min/1.73m2 [facility] GFR Reference Ranges:Normal Function or Mild [...] of Health and the National KidneyFoundation. The [place] method used in calculating this result is traceable to IDPR standards. Glucose 69 mg/dl 70-110 Below low normal [facility] Sulfasalazine has the potential to false ly depress Glucose results. Sulfapyridine has the potential to falsely elevate Glucose results. Baseline values before medication administration are recommended. Calcium 8.5 mg/dl 8.5-10.1 Normal (applies to non-numeric resul ts) [facility] Sodium 138 mEq/L 136-145 Normal (applies to non-numeric resul ts) [facility] Potassium 3.8 mEq/L 3.5-5.1 Normal (applies to non-numeric resul ts) [facility] Chloride 110.0 mEq/L 98.0-107.0 Above high normal [facility] Anion Gap 11.3 [facility] Carbon Dioxide 20.5 mMol/L 21.0-32.0 Below low normal [facility] The above 10 analytes were performed by [facility] [id number], ,[place] [address] ID Date Data Source [id number] 05/03/2021 05:00:00 AM EDT [facility] Name Value Range Interpretation Code Description Data Arabella rce(s) Supporting Document(s) PT,Patient (on Anticoag. Therapy) 13.6 Seconds [facility] Attention: Effeciive 01/03/2020 The nor mal range for PT (on Anticoagulant Therapy) has changed:Previous normal range: 10.1-11.3New normal range: NoneDiscrepant results may occur due to anticoagulant effects such ascoumadin, direct thrombin inhibitors; argatroban (Acova), bivalirudin(Angiomax) or dabigatran (Pradaxa) or direct factor Xa inhibitors;rivaroxaban (Xarelto), apixaban (Eliquis) and edoxaban (Savaysa). INR (on Anticoagulant Therapy) 1.2 2.0-3.5 Below low normal [facility] Suggested therapeutic INR ranges for ora l anticoagulant therapy: Indication:INRPrevention and treatment of DVT and PE2.0 - 3.0Prevention of systemic embolism with atrial fib., acute MS and 2.0 -3.0 tissue prosthetic heart valves.Prevention of systemic embolism in patients with mechanical heart2.5 -3.5 valves.NOTE: The INR is only valid for patients on stable oral anticoagulanttherapy. The above 2 analytes were performed by [facility] [id number], ,[place] [address] ID Date Data Source [id number] 05/03/2021 04:56:00 AM EDT [facility] Name Value Range Interpretation Code Description Data Arabella rce(s) Supporting Document(s) WBC 5.87 x1000/ul 4.80-10.00 Normal (applies to non-numeric re sults) [facility] RBC 4.05 x1Mil/ul 4.20-5.40 Below low normal [facility] Hemoglobin 10.8 g/dl 12.0-16.0 Below low normal [facility] Hematocrit 34.2 % 37.0-47.0 Below low normal [facility] MCV 84.4 fL 81.0-99.0 Normal (applies to non-numeric resul ts) [facility] MCH 26.7 pg 27.0-31.0 Below low normal [facility] MCHC 31.6 g/dl 32.2-37.0 Below low normal [facility] RDW 15.0 % 11.5-14.5 Above high normal [facility] Platelet Count 204 x1000/ul 130-400 Normal (applies to non-numeric results) [facility] MPV 10.5 fL 9.4-12.4 Normal (applies to non-numeric resul ts) [facility] Neutrophils 50.9 % 40.0-74.0 Normal (applies to non-numeric resu lts) [facility] Lymphocytes 37.6 % 19.0-48.0 Normal (applies to non-numeric resu lts) [facility] Monocytes 8.2 % 3.4-9.0 Normal (applies to non-numeric resul ts) [facility] Eosinophils 2.2 % 0.0-7.0 Normal (applies to non-numeric resu lts) [facility] Basophils 0.9 % 0.0-2.0 Normal (applies to non-numeric resul ts) [facility] Immature Granulocytes 0.2 % 0.0-0.5 Normal (applies to non-nu meric results) [facility] Nucleated RBCs 0.00 % 0.00-0.20 Normal (applies to non-numeric r esults) [facility] Abs. Neutrophils 2.99 x1000/ul 1.92-8.31 Normal (applies to non-numeric results) [facility] Abs. Lymphocyte 2.21 x1000/ul 1.20-3.70 Normal (applies to non-n umeric results) [facility] Abs. Monocytes 0.48 x1000/ul 0.14-0.97 Normal (applies to non-nu meric results) [facility] Abs. Eosinophils 0.13 x1000/ul 0.00-0.76 Normal (applie s to non-numeric results) [facility] Abs. Basophils 0.05 x1000/ul 0.00-0.22 Normal (applies to non-n umeric results) [facility] Abs. Immature Gran. 0.01 x1000/ul 0.00-0.02 Normal (appl ies to non-numeric results) [facility] Abs. Nucleated RBCs 0.00 x1000/ul 0.00-0.02 Normal (appl ies to non-numeric results) [facility] The above 24 analytes were performed by [facility] [id number], ,[place] [address] ID Date Data Source [id number] 05/03/2021 01:45:31 AM EDT [facility] Name Value Range Interpretation Code Description Data Arabella rce(s) Supporting Document(s) Care Plan [facility] QZFZIl6lWlFWYdJk58/WJWhgTVSfz8FfIYnwZDl7KPxiPZReA1HtQLL7qQ1lBWI1WYiCThYsPgKuTKT2 lbm [file] cytology laboratory manager+7WsRZwjZNTuR4mXBr7+33/4WQXamOYHyp2X844mhKacpW3dZNeL/qwA8xoKu29+o6TX017lKo2xM cDmGj9dCVCyfs/3i11ujotctEf2BqvC7akdzykxvo+KZyqPiHNsWPZfh+p5nKv2PweBi7ikvkoWl7NUA bfJzgdTKwkDM/ck+HY+FiRqVZFSH7pAJc/MSDztTas dQ6+krZPaWawfOW93seL/1I4/m78aOVqfAp0p2intIsN2t+/A2TVsyYRyiEMOHoh/V5YifF0bye64TCe Kig4f3cKkKlU0BFRe3t8bD11Xy8/0378n/gUv9kuncs7GHy8pv9dj8wpuiOX/cy6k3x8C5AJotfx8m6B AFuB/J0rZ6AolUG9Zlz4zfX4pf5Nk+vJhrWYa7JI50 lm78dbRKvFvd4O+F9MBAb1Shs5jk7z9+bbx6I2e2YcQr+pMq3zC6pKGy8OAIik9nqif/DiceV4v/O8h/ 4UTT/X1iNm6h92dHTizDY+GySZgfIjQmmKy4NsKEHiSC4QSSJhbGmziBbpc210Iszmc2Aihq+8hR4KB/ l64MdAS9+P6kPIbp285XD49o80h7/L1kdl9LtI7tk2 [file] QAAnUjp6F6LuXEGdUs1mBMSSFc9+XBbnvPFpvYlzPWEJSeZwLPZvXJbdHVVFWm8Y ID Date Data Source [id number] 05/03/2021 12:15:00 AM EDT [facility] Name Value Range Interpretation Code Description Data Arabella rce(s) Supporting Document(s) Hemoglobin 10.6 g/dl 12.0-16.0 Below low normal [facility] The above 1 analytes were performed by [facility] [address] [facility], ,[place] [address] ID Date Data Source [id number] 05/03/2021 12:15:00 AM EDT [facility] Name Value Range Interpretation Code Description Data Arabella rce(s) Supporting Document(s) Hematocrit 34.1 % 37.0-47.0 Below low normal [facility] The above 1 analytes were performed by [facility] [address] [facility], ,[place] [address] ID Date Data Source [id number] 05/02/2021 10:54:25 PM EDT [facility] Name Value Range Interpretation Code Description Data Arabella rce(s) Supporting Document(s) Consults [facility] ODFIYd4iPxCRDeJc13/MUMhmGVLbi9PtZDikTAk8MLokJNDgB4BiMXQ6hA2uJUD1PKvTDlFkGxYdDSN9 lbm [file] ICAgICAgICAgICAgICAgICAgICAgICAgICAgICAgIC AgICAgICAgICAgICAgICAgICAgICAgICAgICAgICAgICAgICAgICAgICAgICAgICAgICAgICANCiAgIC AgICAgICAgICAgICAgICAgICAgICAgICAgICAgICAgICAgICAgICAgICAgICAgICAgICAgICAgICAgIC AgICAgICAgICAgICAgICAgICAgICAgICAgICAgICAg ICAgICANCiAgICAgICAgICAgICAgICAgICAgICAgICAgICAgICAgICAgICAgICAgICAgICAgICAgICAg ICAgICAgICAgICAgICAgICAgICAgICAgICAgICAgICAgICAgICAgICAgICAgICANCiAgICAgICAgICAg ICAgICAgICAgICAgICAgICAgICAgICAgICAgICAgIC AgICAgICAgICAgICAgICAgICAgICAgICAgICAgICAgICAgICAgICAgICAgICAgICAgICAgICAgICANCi AgICAgICAgICAgICAgICAgICAgICAgICAgICAgICAgICAgICAgICAgICAgICAgICAgICAgICAgICAgIC AgICAgICAgICAgICAgICAgICAgICAgICAgICAgICAg ICAgICAgICANCiAgICAgICAgICAgICAgICAgICAgICAgICAgICAgICAgICAgICAgICAgICAgICAgICAg ICAgICAgICAgICAgICAgICAgICAgICAgICAgICAgICAgICAgICAgICAgICAgICAgICANCiAgICAgICAg ICAgICAgICAgICAgICAgICAgICAgICAgICAgICAgIC AgICAgICAgICAgICAgICAgICAgICAgICAgICAgICAgICAgICAgICAgICAgICAgICAgICAgICAgICAgIC ANCiAgICAgICAgICAgICAgICAgICAgICAgICAgICAgICAgICAgICAgICAgICAgICAgICAgICAgICAgIC AgICAgICAgICAgICAgICAgICAgICAgICAgICAgICAg ICAgICAgICAgICANCiAgICAgICAgICAgICAgICAgICAgICAgICAgICAgICAgICAgICAgICAgICAgICAg ICAgICAgICAgICAgICAgICAgICAgICAgICAgICAgICAgICAgICAgICAgICAgICAgICAgICANCiAgICAg ICAgICAgICAgICAgICAgICAgICAgICAgICAgICAgIC AgICAgICAgICAgICAgICAgICAgICAgICAgICAgICAgICAgICAgICAgICAgICAgICAgICAgICAgICAgIC AgICANCjw/qPHoP3thhAYsfrH3N7vgBi2VWg2URG6dp5PxQLUwFOzapeLgAtjXSnYnEBFoLqxICzx4MJ kpCG6BpCVeS4FmM5TgAAtxJN9WCDBwYKVfcJFnBQLp OXFuAfZ4ZTRsKZipCP9OgSWlWDugOZHvYVLrZiSfLLRuGFJpHKCxJZReONYNLIGdJFPhWfYdEROlOJPr TLahBLRZBG4DYzUsL7YogT94IXpCKu5+VAqljyMpHyzGRbSfVVMdf3QrTQp4ZL8YBJNmKktqk8IgXKSh BLBTZMtePA5VLSQ0IQMqJAFuYp6PNWWeG393yrBiRQ 9KSq9UTiPoCL1thq0VBXVvULJpUtlBMhj9QIszRY9EtLHcNUrWs70lnPi1ohNzqQLIBW4qXk9qWNMUj9 9sWOvnXW3UQXO7PBheBhZvTuSrNOLgMLq3UaZPZIjYJtPgE5Cpy2BtAvD4ITBzWhXgEUrpIJDuYqZ7SW 56yFrlAO5RPZHbZSJjZU33SYKcMMJdXe7RRs8QBxOd LO9bhb6OSSEzXRCzXrcCDov7JZglEN3EhZLjX1YitRLqx1uBHlQsS6JOHHD2BOWtZt6RZKGqLmTwVNUl CSsgGI2mERFeWTQZwIitmcE6TK7FDH7jtyYxSI1HWzTeRf7rMo3EChWjC3ImK9BlSJIrSTTEMVsdKO9H QFwfRF8xBH5Iz6AItVHldZ3nsn1KQAVhTKErLaoixm 1FQzhcZ5V2mOwdNEEgFGVuZELXAFojKY7DMFJbLAG6MIMnXGEePEQTDpSrH26rYU9OB2Vrr88oPpF8CO KfTaYgYKvpZH81qCnobsIjaURszZkiBW6FDo0+DQplbmRvYmoNCnhyZWYNCjAgNDMNCjAwMDAwMDAwMD BmJrD7NhLjDd8ACAZvAPDvDGCsTjHdZDQtUTZtOJcz TBJwFWD6EGwzHBFmAQSaYK2UKiEvDSVoNre1TDdrVNUeLXLhfs5WPETxTWIqPBZ1EcMbZXBeLIKhQHhy JFPuNXBlWHs5PFLnROExHD6UHaRvVBWpEMS5SWKxYGVlGPZshp8KTTOoGWTxWnSuRjRfSSRrYQMlABjc OMVfZNN9LENvVMXtIOHzMC0LBhAwUXJoJFn3DigdQJ HiWFCjgk1AZDXjZKPlRWM0BkHeXZHePJHaTOzrOYXoLDJpDQZ7EJXeAEQxKL4VEvYgPQLvPVB0QVSbXI SmNWTcfz0WRDSzEAStCeEiZQLqVFVzSPNfRSfqFVKoIXJnAlP7UPUwRFCgLZ7KQlAnNZDbOOXiVWTvQS EfKZFxug2ZXAWqABLeVCScDhKrEGXeLTUrHXeoUHSh EXR8PyY4GNIuLGOhPV3ALzPcPDTiOGD7ASKnYXHoBSPbxx8PESZjRYIoIut3SjPlHACpRKAeDLigEOZg RHH5GBp9DTOyDYKcEW7TDhJbBDHfGOtfJhVtCKQgQUWlwz4HENMgELTcZFEcJzLgCXIhBNExRWimZWRu ABB6ZZVzGQEgUPCgQA0YDqYvOKFaIAl0GONtLRThOT Llqz1FBJApTUSdQVT7DrUdKAWhTWKpMWzmTJZdFHByLkV2XYIzQRVzVA4YDxLmMYBaHsO2HBqjXRYkTD Cyze0JCLXtZCTtALgzCsLtDBYaKEUiXOekTXMbMHNuDAG3DJXiJFJcEC0PQgMtJVGpXcHhIKQnYGEnBC Gspi4TFFPsSLVeBKOdOfNyXODfUTTfVKinWFMhFMZ0 BAMxMXFmZKMlTU2TAjJfDYQjCiVzOEgnWTBbTYApml2BIJInATExXeU1MHZbPCCeGTPyMXazMFSbUUT5 PAK7JXPcICBuEH1LMeAbFBTzGwb1VUgwDVMmNZGfds5RZAGlXNSrLpO4ISZqPRVjVTJfYIgfEXPnWUZ9 IYKhIHErDXEqKA8WLdAbPGIaUerwBQzwIINaWHAjyw 5ZQWPkZHYhGVb0OeIpTESaXNGfHKitYSUeQAO5SET5QDSuNJXpLA8MMhWtBIXfJMWhVJEeNKZjIKFoyx 3OyILztRbcab0IRUpECx1QvVwfAWXzUNeeVp0krOM8OzYmBBLTUx7TwaQuTZElYBZINZoaBYEfKNl6WH brWkT7QONoVPxpVRKeCXigIoGoU5LeKZDfS9NtHqO7 XFVyPGU8MKhuIWEaIOW7IPJgIWV7BANxFsS7KTBhCPO+GW8nDAi+Om5Yl3QtgbE6hmYbXRo2CLO9Sz6G NJJYM2PGAn== ID Date Data Source [id number] 05/02/2021 07:38:00 PM EDT [facility] Name Value Range Interpretation Code Description Data Arabella rce(s) Supporting Document(s) Hematocrit 33.3 % 37.0-47.0 Below low normal [facility] The above 1 analytes [facility] [id number], ,[place] [address] ID Date Data Source [id number] 05/02/2021 07:38:00 PM EDT [facility] Name Value Range Interpretation Code Description Data Arabella rce(s) Supporting Document(s) Hemoglobin 10.5 g/dl 12.0-16.0 Below low normal [facility] The above 1 analytes were performed by Ava [facility] [id number] [facility] [id number],[place] [address] ID Date Data Source [id number] 05/02/2021 05:45:33 PM EDT [facility] Name Value Range Interpretation Code Description Data Arabella rce(s) Supporting Document(s) H&P [facility] BJBCEp6aQgWERmYf33/QHYxgDJMrq1NrDXqeUPf3WKtaEPHxN3YlVNS6hQ6vATO8TToRJjAhYcBmLVR2 lbm [file] CARLOS A/qbJqxnvTeSx6Lcau4cXZXNqq/7T33KCplo7MVCGYC1z1y+r3lK3TaBXIbI8mWu2m44qMxE72+SOUo [file] Jn1TI1EUepIPVit+HIioB8/HALF-WAY/MZqQDyakQV5orn5PsCK20Ir+MXZVpighENgZZQwgtfQrd1udMINhr [file] mIF069UNESymEXFShrKwHcP99ZkjVZSm6aidl5tBueOkrtabU9q+Y+5Dp+kcCI0ObJdUIpNx1dHd+Juan David [file] VhvtTb+4QeMGeTynIpB4XZmlFBr1Mgk6BYLbXQd9sK8LMSH/0yEhe1wVgClo4TsAtJS25l9nwMxlQ/Kristian eB9meteHpluz3VDyG2Xyj7eVtY0rKnIhiR231dKIe+ o33w4r5mwlWB0HBMdxEtkLKDx/CgvgzXw8AIcyDp+uU+oC6IJMnDL7rgaVaLSiYZ83hUuVm/jnQ3+fleet coordinator [file] GiLQnB5f7ArPZfrsyNzjrEZooYfitqqRaquvJh+ TMQx6r3TmdAehmVnCcPuM734QjktzMVL2HltWvVUz6kY/Y8uMHSctEZSTdHcGbYmbqCq+WmqBU+FpD32 F/U6IukNrTrqG/L8/HQrp09ZBXmGY2JtNDI4TcQK0VH+MxgUQW45e61I90Q7Sn3RR+/Bi/MZD8zAvd+m h8VzuIFfNmv/3Lx2ato1/V7jctQtm4PxBhScCRGPPL T3WPxxPsb6MBCycoqNUkxsR0s5dQfyyG6Ze9gL+al+yIY0uBM3GkYFopSxUeweIYZbF5jdpM0qqoxBqF 1idPFitTFK7WFX5rO/yDyaf6GbVsTDkM/UeacFZyoSoT+0mcRB06VaJdiAJughj4WAuvx7m8tNJv0MBH LGxXDRv+Ch6U8xrZlAZ+Angel+73LSmPdU7sn+Pnx4xM [file] /tM+zXdF7UintJuQ2hx1eGOsKbfsyAqJG+dUctH+IRISH MOSS BLEACHER [file] EjIOnwlKMkhbQnq+o9+47lSEFX5q2Zua0R7OaB t8poU4Mwu+QjMugHaC1d6OhWT/UP1P12eljxX1t23VrWCHFiRwDUVqxZSyK/skLUVlzT0n0+/s+f8v9v s8LDqdLIjaKbnx7oY61i3CGIN1JdKZx5Uqw4jKkR/vH+SdjuDVTPdM9ZjEJge173/7kolRFoXqFR56zq GUZaMtA7F0eU/SmPCmytOo+vzyLAC/pqlV1EEy+gnq mqBTDVb8cpW8Ekxa+fR01H+w3mCMauDMiYSlC4XU/k9S8FoP1He+RRgzPrdD4onutuRsBXgVMVburdtW TORaHQPVCgE7SQfNtGWpYaCfs6+1oP8P8l7PqYnSwvQ0NH/LjZ4wWaQUSoiRDh/mpnXKs6Gy0ApsV5X5 COfHEVG3MPhtKY1DruTVWJulVoJj/o9i2lo36YB8XA 0i/NKMKXYrQy4Oqt42J/ej3hAOUQhwd4Fihr0C+K2E3KsB+WqtrJ8Nza6WAxV0Ww9u9uQVxrxDARvevf bBMizsy6wvnybq0oqHOYbwquMLIJMisbnqd1MdQMPbs+ylth6bLj6rPbramUly//wo+qSjmasyN9c5uf [file] JtxF/DfB3klTAHzD1KOo4fc+pHvedylaudOfpZPW0F1Jc5be0RgqZ9+fisher weir/NhaWo46AiQnKGLJO1uGTdZ [file] C+icr4a82d+iGzjKR6SI8xIvu1Uxk+meNzWsD [file] /H1CE+QXnFoqhrwrbiNgpP0M2aYrn+3cqLa27o/professional services consultant [file] abdifatah+GK8iaF9uG8ubE2tF4TsdVtdH3aHCR4eBWWsZ3+m+b4f6RrmPGyE72LsSHaF0S/ILBF7icH4A7Uzs u7cFCvyLL2Rwk4Xq0iHxNLYrzsMoxsjv/gd407Qlef QFmrTaMkUf8n+u/5MOlOTc5QXcHzmR0+Fsft2D80nTD00zTFJCx9KzDTq9dwrzs8teDwvwuLqOR0uUyc R3Un5NXGFxc6mucNvm4SdPr/r6cbwoFCoU+yLOJh/HO79bN68yV/p2v5xFs5MzmxKRiqSvve7W+MNj0C qpEJ0XZorWX2QVBdaQKwCwnRnMg7ZGDY2iSCnsNW54 GtpT7G+DBquYFY7OrreGESUCIaP4QNJW/FyZUWDyV/P7mrQmx0gPfitU3+Ofvl9GnPxGqS7rfE/7LdL0 u1rvDWNmEcDlOdzFDS3Ss6cH1IK8et26pCMLk1wuOzo4r97bGB1m30xYqlbvXaU5JnmhKCy++QO1bawk UZ7sDrCAS4n+gBOcexVVYM933rxogG4td7syuSENWT mYUoPlfSp7DLx28gcFrY+0Gk4n39smoBDJGS/lLAXvoPeFqbqYLQ8WhptB2G/x6RUz0lOV/CaKwfxHmE qcbY2aWSA7e+P3zujX8V4yqHVGjV3paf2FkW36rbOHSxICAmsbUbShVeAlsVo887Fd7AZF+w3JwoKRof HX0QqoQ+78/OFm/hms8LxA/DbaSo0uQxtb3OCrkkhU T/8fDuxNGtoz3B8BHMDACMFV5SqWgfetXkmZbgQuXtT8+8qLHYImYGzOuV8L3xR0MkRtCvjW4PeicLTY mcK1ThoEDFkPPEy2+lhdV7jzjjRQujcjbrInt2PWWZO2c+pmYszwonxeiiyV4WtHWnTFVk5Ph+gTtmVU JFNVCsy0ITi+mGLOq/MCCcCCQfGZkIjLu7B2wsKAe7 qlSVqn6xcn48XkYLwkdpfuYQLBikrLBPjey6mfPi9rVGcE/o6FSrwShVDXTlMofYXHXCXP9UzXt/IlFO rn trauma+A02ataMtWBRRRtT1b7BnOEcAo6apekH7ZkhstfVP3NpgGp5zV7dFoYwKvV0zSoITW/VAReAjpr2Z [file] Xh22NGwYkPR/v1dlef6jx+tbVYrEisyvTv9Z5q+Emulsion Coater [file] SmLyGvQ6UxkQESZ8OPkgdQeE3FwBvWIMNQVkIa0jRUKgmK6qudCqFSlFqc1Mv+3Kht6hWixXWlbOJ/Carlos A [file] 7Oo1ta2+9fyeEGTqiTCgfjGykcZ/Kristian/k5hNOSkkUDa traffic attendant/Qe+pmlAIayRWk4t1Cgc/oq0rQNA+edyLe+uEebIkV4os4P2R4oHWwZ+33C3VG4CjwOOkPicb5b/Gr [file] P4+92Pmtf5OutRsjJVKlyQyGIH1nAiddJEVtET [file] CARLOS A+xcM0BGp7pjGJSuSRWtuOf1Npy/RT4Hz3CnCeM3sDPHMuWsRYnRTIv8rgUyiKG1OX4JPjS4k6n6ioz [file] t5dtU+Gw6l3yADjlC1EgtkAfkBHFy3D7IEMtwh463WR+cGCTm4oN4C/yuJPTnJvMK1P4G2cMDbmsO/Walker Eo8s2pc+GKmZxb/vNMti+hsxCzCQdL0rWSx [file] JgV7GVQf1jdd4KXyLcPx5x8JXgVxuaLbIZs376eC5G3HBUkkjO2fsXhybiz9Kp0Lf+qiOYNjMef4+absentee-shawnee [file] 91gQ80nEzIL22ml8ClmxcMRveBxXP15WNFSArQJ/Carlos A emwctXF1FezCMGm+HCa/Qzwhspowk9qDb/43hDn1ZC7R+yp6vJ297/e8meXV68s7m6wnwmlLCQeEXdkf Z/3J4NNKWzeWM08LbLoShoi1tdREaEB2HFBJbxHbR/vuma+ks9nwDXw/zjVOZgte+dHom5juH9Ysrk24 aO7OXNgWV1CZ73UNCN2dliK7UGzKKHbxOXczkLYhL+ E52G927hCpczFOTn9lzlOtuEXCUpa2uj0ccO+6w7XQEeENs6NLC6SFGZphRKOj3HCohw8U7vLtBziwlv qewn87pFiG4S6E19X6PkbEd8Y1sm6x6yCfc3KCh07cvgWJ/Izba90G6F5kWshMyCg3WyrJ+ypfPU7MOA gfLECOWk+dvvGqpRCJrHYhM6mBbFdeHTEIMHr5pk3d iZF4/byZwGJX6YiYuDXxw2McjMvOvE9NKVisXcMJE22pQ6MEHVkBLAARcuXcUtuVcBgpPSHHdjFJU3qi dGLoWxnblVOjatRPzFDtR/K3rGxcwmA9Em5aMI2aCnAg3ZESErh0c2sddoYM99jUnQWOmIURLwZVfF9l mGeZPFKtVyT/Okt+W3pXgamgSA3QzbHEzPAg+Y0/ [file] 3rZ6/RnGoYFiSCEKnwmmIJPMPUOGMIvBJqAnZduXFZzzP2FvW+APRICOT PACKER/2xcyUllCBb4V+svRUR8bQSU+uF HOQJ+k03c0t03R94cgaCvkv3iDSjsJfR8/V38hRsb5LI3re89Xajq9XR2e3yj/5/PVCZuk4hGpdzH+1P t/NU+UDvV5HFMD7uWhENvFl20oc26+wA8y2VRc2ZI3 uOdhECR93RxkIuCDEmrzUuiqbE1w811/t0nKwzmS3z9TWlkO1gcKlDGeU38/6BeGg0a8hQao7eFIoH3m 0zloHWsxG9032pza4/ov11AjG1j99zvBjOOn/sfk05Bh3j4ZjrTBGxORhX+llkANZLi7Wu4TF4ZXuehF oD//giZYx7Kj/GjyzqFEOfckALZoRAX3DEIYDoP/Bt HICRkravwue3FovTb6BAm/avI0pJp2do7CVJZRtdXQC5woxivWnpxAxC+hQkmCLtda3DhZlrvB0TiRyM BukDZnXcqECZKWjMYBSanVRxGzkHl+RF3TLAMZ5u0W1ckyNbLlTEFSDndpJPl0pIb1HlOm6M/Odwm13T GZMYRAYeEUOP5O/N5UK1lWJBQFyNYKRaLiS6tyTmnS [file] SCRAP WHEELER+Mx1QiKDY2m8XlDD8zZag0DL8GQuXbxgwOwHykPe [file] bmWK6btlUUzlVM8fWhY/u/va13+Tractor Mechanic Apprentice+aZsFh366Ph+O07zIHlnoOjfqwfxaj4Ry2wtS9g2RGHSuPYWO+ [file] Lh2Q0tEa/vI2T0LD//6H/pXf//chief wheelage clerk/6EBlp57OvP8si [file] Carlos [file] q6HJjYCOi8cpkPrOrahqk9Q80e9rGn7wOzXd0XAj5cyWZ16eAnQR5f4Pbh2Rx3cAXzzMrfZRhRLu++SCRAP WHEELER [file] AgICAgICAgICAgICAgICAgICAgICAgICAgICAgICAg ICAgICAgICAgICAgICAgICAgICAgICAgICAgICAgICAgICANCiAgICAgICAgICAgICAgICAgICAgICAg ICAgICAgICAgICAgICAgICAgICAgICAgICAgICAgICAgICAgICAgICAgICAgICAgICAgICAgICAgICAg ICAgICAgICAgICAgICAgICANCiAgICAgICAgICAgIC AgICAgICAgICAgICAgICAgICAgICAgICAgICAgICAgICAgICAgICAgICAgICAgICAgICAgICAgICAgIC AgICAgICAgICAgICAgICAgICAgICAgICAgICANCiAgICAgICAgICAgICAgICAgICAgICAgICAgICAgIC AgICAgICAgICAgICAgICAgICAgICAgICAgICAgICAg ICAgICAgICAgICAgICAgICAgICAgICAgICAgICAgICAgICAgICANCiAgICAgICAgICAgICAgICAgICAg ICAgICAgICAgICAgICAgICAgICAgICAgICAgICAgICAgICAgICAgICAgICAgICAgICAgICAgICAgICAg ICAgICAgICAgICAgICAgICAgICANCiAgICAgICAgIC AgICAgICAgICAgICAgICAgICAgICAgICAgICAgICAgICAgICAgICAgICAgICAgICAgICAgICAgICAgIC AgICAgICAgICAgICAgICAgICAgICAgICAgICAgICANCiAgICAgICAgICAgICAgICAgICAgICAgICAgIC AgICAgICAgICAgICAgICAgICAgICAgICAgICAgICAg ICAgICAgICAgICAgICAgICAgICAgICAgICAgICAgICAgICAgICAgICANCiAgICAgICAgICAgICAgICAg ICAgICAgICAgICAgICAgICAgICAgICAgICAgICAgICAgICAgICAgICAgICAgICAgICAgICAgICAgICAg ICAgICAgICAgICAgICAgICAgICAgICANCiAgICAgIC AgICAgICAgICAgICAgICAgICAgICAgICAgICAgICAgICAgICAgICAgICAgICAgICAgICAgICAgICAgIC AgICAgICAgICAgICAgICAgICAgICAgICAgICAgICAgICANCiAgICAgICAgICAgICAgICAgICAgICAgIC AgICAgICAgICAgICAgICAgICAgICAgICAgICAgICAg ICAgICAgICAgICAgICAgICAgICAgICAgICAgICAgICAgICAgICAgICAgICANCjw/lPMpP6xekNFtizU6 J6oaNi5KEp6USA1gw6NaDYNxENsdrhCyZqtKVsQtDWLwIphKRqc7JHaxPD2QrLAvJ9KkU7WaWHukTR8L RGFeESEskGPgGQJcMDAuTfA2HVZpDHmiDV1IuVRjAU imGWYgVYDiKbMwIMCsHMYrJMYySLFoEXAWIDUzRIHaHaDyKOEmHQUbZBizNYGIIUX2FZHdPxWjOMevZN 3Xb8OfiUN8MZd+Fc7OOZ0ry5FyYXo0BIDaCF5icw7SCUaHZgOjQ9XtvhF8LJQ6JBDcVj0ELSRrQBFznK W5KMTiHBGSIsJjE1YhhL99NRWLCx8+DQplbmRvYmoN XyV2QPRjj3XuQEj5MV1ADMIgIHz8dNJtLZGTWVC1MMLudJxcyAXJJSKgzZMtDJ4LDNE9YAuoZsWwEkVy NLKaVMyaAAPEXFxNIuZfI7Gew0KzEvC0SKJsYxGtMYowCFJaByJ7XD02gLgmGB9DZMQbLMFqEB59DXC4 KLCdGi8MUl9MRgBpUI4sih7MBSZbELTpLycYUec5ZO juFX9JnNWnN7KnwGJle9zECgJeS0AOTSDdZSDgJx5MGPLfVxQvOYJdODfxCX0fUCGqKJXFzEeocuV7MW 5DYO9ixpAwXR8CDyRoBu4wLe4WYuPqJ3GsF2FeIPXpIWEBAUlzJS3NEInyJE0wLO5Hu8FGqYBixG3bpq 0KLURyUDErRoduty8HSvvmN4B3yYfgJDJwPMEpSRYP HEgrVT1BYFDmBYK2XWF1EjCxLTXNXeYkA53qYX8NJ7Lhv27eYqM7FYTbUtZvYXxpKU83uZrtftGqnXTh oMcnFS5ACa4+ODxwfdXyPrlDYhvmCXUNWiXqGJdZJuQvRZHlVBQyFQLdTnE6PwHtQx3YPFSjKPFnEYIc EiCgQJJrTJNiTOsuDKUgKbI0GNo2ALDdMVYuVA2REe RwHPN0RyonGUIsLDCsZIYzaq9GCVXmFQInVXD5ErOcFEFwZQCwMEwkWZKePZZzKKZ2VULjTACdTZ8JDf FtGWTxODRbVSxxUAXoYDQplz4HSQKiAIRnWbN2CJQoLNLzNRYbWYdcOOVwAWJ9LTq3MWSpEISxFE9YOb NkJIPuSTkpBDVeNGFqWATlql3MYHYbDPOsIFQ4HfVo VPUwNVEdGKfhQMXdSWYkLwR4EHGvZZFyMA5DHdNvEHFaPRB7QuVzTCOyKLOaiv0LFMUjJSUpMtL0FPAb DKHdRHCdCUlmBGRoAEVeAaJ3VEKoAVDcOR3DPeUjZECpLHIiURGgKNReLLNfsh1JUKReVJFoBtU3MKBv PQYkPYVgDYoyGHDgRHOaHXG8PFAnVZNwWB5CHtZzRK YxKHQfYAQjVJKiFGWbnc4GMFTfRLHzCyRxSYAsQDFyIBQsDQndDUOkTZI3FnCgQINuJVYeTO0YCjHlWV YdZMqcQUdxZCBfNUQbnu6EGJPjVDNjBwOcGRCoVCJeTWTvVPgsQKMoBQM4Llq3WDHnCWEwFL6FCcLeTI DwJPa1LBcnOGBfXDWibf2MERDjICOsUFv9ZjIbWNRy FLFrOYewFRCeMFI5ZVF0PTXxQCUxQK1KWuDmYULaNPk8CJkeNPEaNIYvwe2JMUMeRWYcEUP7XCFrCHSm TOYvLIcdIYNuWIArPjgtJOFpLLOzBQ1ETuScGHGoQkVfOwYmCOIcISRkbv8KGDPfYYNcFUEgPzAwDWSs NLBtXUvaXNLwMYTlFzU0IWYvPWLxPN7EWsErEJIcGt B3HmAnAHMoKALhtn4NAGUkMASuQst7FsKqCMGaSGHwAYvvFKZfVRPdMYvgQEWxVITpIR1MDwIxJFUvRq ClLrTtFLYqTFGezv4GXQMiOQDrXKQ4QqWrUZHlAXQqRJutLUQvTWW4PHGnAEMnZHMjOK7TYyDaBVUgVf ScLwTwWWRzFMTgil8SNMNiUMQyJfH9ZGIuADYaQKAe SApfLUGyAJG7QNSgEQVfVTCjYI7YBqDfWAB1PsC6INZsVFMhZAFhjv7GESUbRwWlYxv3TVSuVZUvGOEh OKclLUScLoT2UBA8IDJtOAArFQ9FZnPpZKQ4Cbm5SmFjHEFaRAFhnd2UNOJrFtVtLUJ5KcEaATJlXDHs MPq3poFjdJRfHUc8VA9JK3UwulChDPiYAs5Pj894TL V7LJKtCq5VZ8itVr9kZWTwJUDWEk3MUPw9KoAeXrImGnKxR9M3SiW2XFTcIUC9LJdhIcFbCGFlY6G+ID zxPPYfIJBjWrSzRXY1OIraUJJwOqrlGWTlJOFwOuAyLZ7yMGZTMf3+DPvbfCKvmKmyLPOGCmS3Snm7LJ lNZtVjOD1ZNZt= ID Date Data Source [id number] 05/02/2021 03:30:27 PM EDT [facility] Name Value Range Interpretation Code Description Data Arabella rce(s) Supporting Document(s) Progress Notes [facility] RWHPOc0aIsHDSfPe01/BYXuxSGUze6HoZAptKTp2MLbrOYXyL4VgKUX7lA9cISS0WPyUIlDkWnXeCVN4 lbm [file] N2lnKsKDkaOkduDN4FCTGXU9NEYq== ID Date Data Source [id number] 05/02/2021 03:11:58 PM EDT [facility] Name Value Range Interpretation Code Description Data Arabella rce(s) Supporting Document(s) Nursing Note [facility] NUJTHn3mJjCAXlGz96/RAFptLJBwj8WzDMoqOLa7LWiiAZOmO4JnKMV4nQ2fFBM9EKfXHkMsOzRsRIM5 lbm [file] AcQ2YRYjIGQeBRBnAyT+SE9fUCz+Qy0Sg8VrpjI0imEqIZliTHz3Ep1NMPWZE1XEKw== ID Date Data Source [id number] 05/02/2021 03:01:14 PM EDT [facility] Name Value Range Interpretation Code Description Data Arabella rce(s) Supporting Document(s) Care Plan [facility] RSVRPz3kNwFKSrIv25/OVOllJOFhu9WpLGwsKEw7MOgrYXYuA6QoIVB4rI4nPTJ9WYnNCkJlYzNhWFZ4 lbm [file] VhWF6UJFi= ID Date Data Source [id number] 05/02/2021 02:32:34 PM EDT [facility] Name Value Range Interpretation Code Description Data Arabella rce(s) Supporting Document(s) Nursing Note [facility] OBBJLr9qWnITLeFj75/FZUwxEZWot7YiOHztTMy8MRdqWSVdV8JeGRL9tJ7eXML4ROfBQbTgPyYpVFS0 lbm [file] Ie8WFwM3TRQ0mPCsCc8CCeJ7DZYVHyRhKN8ROJb= ID Date Data Source [id number] 05/02/2021 01:51:03 PM EDT [facility] Name Value Range Interpretation Code Description Data Arabella rce(s) Supporting Document(s) Progress Notes [facility] BVLVKu8tQeQZOzLy48/TOMmeIMSph7KlVGgfPVg6ZVxgIITxP4KvSRQ3dY6cKLQ5EHuFUsTrFhYuPHA8 lbm [file] h7NB4IREB6CGGgVv3EMQFfBB3GMJDoASNjZBHJJlOq JOGpKiZmHKTsFNZTFZisTHWlC0KeYNB3SYArWu7ZOGEsJP9OJHKbOcOrSEA+Dc8DSMHrBW4khlXzsOO7 MANUSCRIPT READER+Xh6ZKRBnMIa5K3M0TUGiEFi9E4BIO8DYZAJyWVrkJCktMVYsNXi5Z2K4SHPsT0XMR2Ppannwqb8+ LX8QC79UGPExTNu1M7K2iDKlH4Y0hSlWeCQ9XT1EZM 8OdLy9mWPkvQ6+CR4JK7RHXmBaRHa3S7W8pROvZ2G2iNoDePD5JZ8CCR1HgVJsHCCdvaJxCd3nE0BMBA dVWbDJVIH7QV7SrEVwAA1UhNXKH0IjiIGwOs4lEMlgfSYzfJ2oKz3lQSzgWF5SCqBHGSyWKMW1KX6BtR KnVF0KqKFME4SaqQZbKx1zMUxqqIEeic3+IT7UUVFj Ry2RRe9+RDmmgjThZiwKZdO9ENWva5GpRMi3AD7UJN4aaEugYYP9Dj7YpMV4aWVtE2lGJJ0DqLViT96f rHWkMBGtXc3BZzX9wiWqrA7HBQ28tENmw2Q3RKAnK3hdEJjwl29eGBerXFuGDV0fHBQTSNcyPZwbCZD2 ImVkltjwBUFePs8HChPsLXs6oW2gjYW3LXD0DobmqI JxZGruBrVwOkOsHxX9kFanoye4XFqnUB3sDJahxtfxYCDfYwz+XXknXIJoIFFkBnsAQJYpjL4zgsB6pc DtKKgtvWSiJr5ck6q4JtudQt5hUl8dVIr8ReTiOcRaWIDxCu4dvQ14ICftaoVsAj5HJaMrJED9M3ShGj pSREY+RBdjCSciwVd3jNWiOTCmNe3ZVPRvMJEbYYXx ICAgICAgICAgICAgICAgICAgICAgICAgICAgICAgICAgICAgICAgICAgICAgICAgICAgICAgICAgICAg FIHpHPOzQHXcYXYcPANbHJQrAHUzSYEjBNVtHSMoHK6AGQSrSILmAAPiPTPhJTDeFUJaUBPsDLOzQHAm ICAgICAgICAgICAgICAgICAgICAgICAgICAgICAgIC GnNOCpQBCmFBPtBCJaWTJvKDExSQJqNTUlTGRkJJXkTJHgSETlXXXkTA7FZLHhWBYeHRGdWWWtLRRwLM AgICAgICAgICAgICAgICAgICAgICAgICAgICAgICAgICAgICAgICAgICAgICAgICAgICAgICAgICAgIC GfMABgZFTaFXDiTHBeYWXpPWTkIHJlFI4QASUgXJAq ICAgICAgICAgICAgICAgICAgICAgICAgICAgICAgICAgICAgICAgICAgICAgICAgICAgICAgICAgICAg HUFaHHNvAHBiTIVxRKFiILWaVSOhTDSpSLZjRHOtLCPvSC6GBLGaFIAfCMWxXBOeJHUaYFYcPJFdDVIv ICAgICAgICAgICAgICAgICAgICAgICAgICAgICAgIC PvTVGlVTGuBDEqJFHhHPBtLZMtMGPaBZEiTTTcHWEcFNQiCRDvCRRmCOLfHV5YBOXiOZClJNFaBFOdDI AgICAgICAgICAgICAgICAgICAgICAgICAgICAgICAgICAgICAgICAgICAgICAgICAgICAgICAgICAgIC ZcYQEyBUEfMOKwBGGwWCRbBHFcSNToEVWuYV8BFQKe ICAgICAgICAgICAgICAgICAgICAgICAgICAgICAgICAgICAgICAgICAgICAgICAgICAgICAgICAgICAg XXRvQCKuGBGeWTAnWQLeLKCeNOWkKPBaDLViJREbNYAzFXDsBG9VACOvNNHrBORtPSJjBWNgNCLtSATa ICAgICAgICAgICAgICAgICAgICAgICAgICAgICAgIC OrIQOiGWHrYBFzGRChNRAwTKMsWGCkDXBuNKAhXMVgBBOwVPOlHVGiZCMeFZTcAX5LYQWdDCToASFwPD AgICAgICAgICAgICAgICAgICAgICAgICAgICAgICAgICAgICAgICAgICAgICAgICAgICAgICAgICAgIC YeCZEsPQUpTFIdCNNdXKSmEETdUJGpRGIeBSEpPZ5X ICAgICAgICAgICAgICAgICAgICAgICAgICAgICAgICAgICAgICAgICAgICAgICAgICAgICAgICAgICAg JSOqUGAeZUWzPOBfOWOtYUAySHQcIEEzTDMyBMUyFSVjJAQsZYLrBO5MDY35rKHgf6B1PKYrKE3aqnr/ Jm4OXMgejaGeqMPlFQ7VDnXpXM5zwl9DNyEbMP9wll 8WHTjDKjBrU4R6dSFqWFUzTHJAFeOlE22hQHlyYe24KXrqYXJuCcFpGOs6Tx3MGyCtM3jvYWTrJwS2MH VuPbIcSBaoPI0Ex5JzwKKaNFn+Uz4BJQ8qn1ReFRvcCXSxEX3doo9PFBbYXxZzY7VhnsJ9FUY4XZXsLb 8FZHRjLQJbyASfBySpAWDTFqJfX5DaoN11WMGCGs1+ WHomnuBuWqnJHrG9UWYar0TzNHv1YP7UROAwKWi0zCBaFEKrD3Swj2WsQj89QRWiSrzvKwqkRoLZUVen LBC6TJkmBpZfHnOlSOIlPGd7HjWYDOhTPwKoZ0Uaa6GbGuU7TUNrGnCrIZuoQGXmQyF6ZE63pKoqZE8C PFLdWSTsNB35VVF8BWBvOt1PGr0YLxEeWQ0yxu7FHw fqJWUyJshOPdm4XOjuUU0DsHQtR0RtnJCwr1qTCyCcE8NWZRBhYKIgVx8WTBAmZlNhNYUoOHxpIH5pEH KoLFFJvJkkwgH0ES0AWK2blpWeKI0QUlAkCe7uRz3NZhZvF6UnH6VhUIDiZNCACNqsUK9HXAzfDV2pMB 3Vn0QXkIKkwB4ffk5ULKHsJJHgIwdebj2VOfshU5H3 bRozWSZlNoCfGXIIEFheJM0YJFNhYUN7JTFnFNUiDMVXEpThA17lON5CL7Yzf98qSqY8KZAxQdYxGIsp GX21uLhjzdLhkATmtAddQS8WDf0+UKrepdArCgzRMddqKEWUVyImBphOVeXlAAYpZWIyZNHtKqY8CaKc Fz6EWUOcJJRzSOYfSmPoWHLwELWyEHhiANYqTWYtBS T3PEIfRJGuQK7MQwEpJFHcXlI7GiwgEHPgEUMvxj6IKJZzITDxVKS4SqTsVFThFIPuUGhbDWGwSFPiSr I5FCUeDIBvBL0ZNrFeYAUuKLU5YOWyLDLxKQQkln7DLUPnKMXiAzCnQDAgYJDnKVHlBBgeFZQhRJTcFs XdKCYyCKRlOP1HTaEbCYSfKZC9ZKzeEXUuBTVllx8C EFUeCBGlHWz1QmSkQHVnDDAeDRcgLBNiIOA9CSEpLEFzLHVlMJ5XTmLaYWYjHTRnTzKlAKMtSMJais2Z QQRwSQNwVyN1KZOnAGVjIUAgLUraPQMoIXU8IVmaDGLnMNHbSE4ZTsDsAJUgNFzgIFteIHNcMVAmrr4E UEMmNYNqHIYdOBPiEZOtMZSiZOfpWRVeBKN6AEe9VT KdLMNfVF1ABlJtTRBiQYd2JafyRGOrCHKgdm4EQMOhSXPgPWZySOHhHAUyBARxTBdyFMMmOTM6Dpo4BL QfKOBaWW5PPcCrNTYoXfS6PctwOBXmNSOspe6ZOLAkKPVrZSmtJVWeXGZzCFRrPZydHDOxZDEqINr1XE CtVYIpLL3MMkPpZQBxRwL4IzmtZUIvHSTwuv0JDUXm YEYcXmo9JhDfGBVqDHYtBCyrUNAgDQCaXKS6MDCbQESoDW7NNbMeXZEsTjZnBswyRPGoUEWqrd0MnVCn tVsgyq5RVEpWGy0AxQhtBSO5WIoiSt3piQEyTeBcNPMUXq3KicYuEKJpYNCERIceFQPwTDZ3TmucPOS7 DEVrRkRqQHTzNdZ3VKTwHcGrLnAbX3F4BsG4YKXkFM XiBCmmCNFtSKD6PAAoIAI9GzXcVwSmQRD7DMv+HY3jWZq+Yy0Yt0XwtzH8mnNdUIdkRqAsEw0CXCZWG2 YNCg== ID Date Data Source [id number] 05/02/2021 01:17:00 PM EDT [facility] Name Value Range Interpretation Code Description Data Arabella rce(s) Supporting Document(s) Iron Saturation 27 [facility] Iron 97 ug/dl 50-170 Normal (applies to non-numeric resul ts) [facility] Patients treated with metal-binding drug s (e.g deferoxamine) may havedepressed iron values. Total Iron-Binding Capacity 362 ug/dl 250-450 Norm al (applies to non-numeric results) [facility] The above 3 analytes were performed by [facility] [id number] [facility] [employer], ,[place] [address] ID Date Data Source [id number] 05/02/2021 01:17:00 PM EDT [facility] Name Value Range Interpretation Code Description Data Arabella rce(s) Supporting Document(s) Ferritin 9.8 ng/ml 3.0-388.0 Normal (applies to non-numeric resul ts) [facility] The above 1 analytes were performed by [facility] [place] [id number] [employer], ,[place] [address] ID Date Data Source [id number] 05/02/2021 01:10:00 PM EDT [facility] Name Value Range Interpretation Code Description Data Arabella rce(s) Supporting Document(s) Vitamin B12 324 pg/ml 211-911 Normal (applies to non-numeric resu lts) [facility] Folate 21.37 ng/ml 5.39-9999.00 Normal (applies to non-numeric re sults) [facility] -----Interpretive Information-----Folate Deficiency: 0.35-3.37 ng/mL.Intermediate: 3.35-5.38 ng/mLNormal: >5.38 ng/mLPatients routinely receiving high-dose biotin therapy may show falselyelevated results. Additional information may be required for diagonsis.The above 2 analytes were performed by [facility] [id number], ,[place] [address] ID Date Data Source [id number] 05/02/2021 12:27:00 PM EDT [facility] Name Value Range Interpretation Code Description Data Arabella rce(s) Supporting Document(s) Hemoglobin 9.5 g/dl 12.0-16.0 Below low normal [facility] The above 1 analytes were performed by [facility] [place] [id number], ,[place] [address] ID Date Data Source [id number] 05/02/2021 12:27:00 PM EDT [facility] Name Value Range Interpretation Code Description Data Arabella rce(s) Supporting Document(s) Hematocrit 30.7 % 37.0-47.0 Below low normal [facility] The above 1 analytes were performed by [facility] [place] [id number], ,[place] [address] ID Date Data Source [id number] 05/02/2021 12:25:00 PM EDT [facility] Name Value Range Interpretation Code Description Data Arabella rce(s) Supporting Document(s) WBC 5.18 x1000/ul 4.80-10.00 Normal (applies to non-numeric re sults) [facility] RBC 3.71 x1Mil/ul 4.20-5.40 Below low normal [facility] Hemoglobin 9.8 g/dl 12.0-16.0 Below low normal [facility] Hematocrit 31.1 % 37.0-47.0 Below low normal [facility] MCV 83.8 fL 81.0-99.0 Normal (applies to non-numeric resul ts) [facility] MCH 26.4 pg 27.0-31.0 Below low normal [facility] MCHC 31.5 g/dl 32.2-37.0 Below low normal [facility] RDW 15.5 % 11.5-14.5 Above high normal [facility] Platelet Count 213 x1000/ul 130-400 Normal (applies to non-numeric results) [facility] MPV 10.0 fL 9.4-12.4 Normal (applies to non-numeric resul ts) [facility] Nucleated RBCs 0.00 % 0.00-0.20 Normal (applies to non-numeric r esults) [facility] Abs. Nucleated RBCs 0.00 x1000/ul 0.00-0.02 Normal (appl ies to non-numeric results) [facility] The above 12 analytes were performed by [facility] [id number], ,[place] [address] ID Date Data Source [id number] 05/02/2021 11:50:00 PM EDT [facility] Name Value Range Interpretation Code Description Data Arabella rce(s) Supporting Document(s) 01 - Product ID Red Blood Cells [facility] - Unit Number [id number] [facility] - Cross Match Compatible [facility] - Status Info Transfused [facility] - Product Code [id number] [facility] - Blood Type A Pos [facility] - Issue Date/Time [facility] - Specimen Expiration Date [facility] - Volume 341 [facility] The above 9 analytes [facility] [id number], ,[place] [address] ID Date Data Source [id number] 05/02/2021 05:35:16 AM EDT [facility] Name Value Range Interpretation Code Description Data Arabella rce(s) Supporting Document(s) Nursing End of Shift [facility] ZYOHLk5aQsTYGtJs57/FTLxeBDHso2QmWPsvQBx4QEwnGEAtD0ZkEXH4kI9sPWC8WDmNJnNjAzXmWMQ0 lbm [file] ZrfBVQZr+vsH48/Oib3oOk4gxFOcQeaA/zI8/p [file] ICAgICAgICAgICAgICAgICAgICAgICAgICAgICAgICAgICAgICAgICAgICAgICAgICAgICAgDQogICAg ICAgICAgICAgICAgICAgICAgICAgICAgICAgICAgIC AgICAgICAgICAgICAgICAgICAgICAgICAgICAgICAgICAgICAgICAgICAgICAgICAgICAgICAgICAgIC AgICAgDQogICAgICAgICAgICAgICAgICAgICAgICAgICAgICAgICAgICAgICAgICAgICAgICAgICAgIC AgICAgICAgICAgICAgICAgICAgICAgICAgICAgICAg ICAgICAgICAgICAgICAgDQogICAgICAgICAgICAgICAgICAgICAgICAgICAgICAgICAgICAgICAgICAg ICAgICAgICAgICAgICAgICAgICAgICAgICAgICAgICAgICAgICAgICAgICAgICAgICAgICAgICAgDQog ICAgICAgICAgICAgICAgICAgICAgICAgICAgICAgIC AgICAgICAgICAgICAgICAgICAgICAgICAgICAgICAgICAgICAgICAgICAgICAgICAgICAgICAgICAgIC AgICAgICAgDQogICAgICAgICAgICAgICAgICAgICAgICAgICAgICAgICAgICAgICAgICAgICAgICAgIC AgICAgICAgICAgICAgICAgICAgICAgICAgICAgICAg ICAgICAgICAgICAgICAgICAgDQogICAgICAgICAgICAgICAgICAgICAgICAgICAgICAgICAgICAgICAg ICAgICAgICAgICAgICAgICAgICAgICAgICAgICAgICAgICAgICAgICAgICAgICAgICAgICAgICAgICAg DQogICAgICAgICAgICAgICAgICAgICAgICAgICAgIC AgICAgICAgICAgICAgICAgICAgICAgICAgICAgICAgICAgICAgICAgICAgICAgICAgICAgICAgICAgIC AgICAgICAgICAgDQogICAgICAgICAgICAgICAgICAgICAgICAgICAgICAgICAgICAgICAgICAgICAgIC AgICAgICAgICAgICAgICAgICAgICAgICAgICAgICAg ICAgICAgICAgICAgICAgICAgICAgDQogICAgICAgICAgICAgICAgICAgICAgICAgICAgICAgICAgICAg ICAgICAgICAgICAgICAgICAgICAgICAgICAgICAgICAgICAgICAgICAgICAgICAgICAgICAgICAgICAg RZVxEYj9S8pnHYNbEJYhAG3jCMy7Gs5+DQoNCmVuZH K3elKusX2FZI1rg3ZdUKibDLPvn9KxRBz6DG2VQBSuJKjoXH8FJZflcq9EABTaZIYdjJOVw7ndLyDzNN V3SDWhUjyqSF3DRBDkH8srvjVbLZOtANICJP2ZWqNbR3CozU83WOUEEg9+EZpunzWaJmxFJvG0GVDeq5 RoGKp2PQ5NPTEoDcykh6IlJaLxHVPJQGmkOZ4PRVV5 AUG9UHWnRj7EJHXmO492ocPtYJ8HBi7EDyIuUE9cti3DPcMvPIKlBdnUMck3JKdoOD8AkYLdXFjFuUGl eQ5sVZXaZPFsKbEWuLnvcWQxpAZXtSVqMACgNGfleuWrTPvyIXZAIGT8AWszXqRhBdVhVNZyZNubVaZM ISxVGrPtA6Srb1EfSyQ9WFKzJdLcKPyuXEMiVtC6EV 13zXliBU1QVSUuBGCjTO66NKD6ZFBoVc4DTm8IBhIzLR0moc4UZysnCJOiLmoTShm6PSxpVW6KcNWtI4 AwjPWfy8xXKqBkA5SEFUEbQTLyEq6GRVLeWqRdWLYpIJanUG5fHSGxBULWuLklicA4GJ4KCD7dsmOwFZ 5TCjJiDy7qEr8XMwRyP4FwN0CuQBFlZDKROGcxMP2D QZbhTY6aIL8Jp0YRjDFwzH6mhc8IQQDoBHLwYmkuut8DFleyK2P9vKmqDSLzGqFdIOTQTZwpFQ9QJUAs IPN1RZTcIESpMFUKDgSnV10iMJ5FE0Rac81wQjH5GFEdWpOiHOziKL97gPkwatVzsCXzjCrsWF9QVz5+ DQplbmRvYmoNCnhyZWYNCjAgMjgNCjAwMDAwMDAwMD HtClY8IuMdCj2CTMRhDLCkRIAlPfArVVZwQWLsZZamXDMaEEEhOEB2BQPbBFNsJS7PFkBoYXCmTmUqYW FcLGVgJQHmqf9YIYTmACTaGFU8RyDmGHTnGONyREyfKMNzPEPrBgG7NUArYZCxRP5OGvJwRHLhRKF2Kb LmUVPvMOMxxy1BOUQuVWPvPeufDXLcIHQiQSThKDvz KIQwILNgTAO2QLZoHMGtAV5FUvZcSJFkFHKsFWIiESQgROVvzj0BVZJdLWBrBSW7ZqJrSSIeCFDcBIux DZGzCEF2YDFlWYBgJBTsZX8MHmJjNWBwKUU4XWAfGLKrFSWvpc0PVJOkQIFdJre0XQSrSFBhSXBuPAvq SLWzXID7QtX4EJMqZGYqOU6QWsAiVWXhHFv0JJDyWR JgTPZrpy2ZFXGtYVJwDbf4TtVsVRJfYOArFRujFSQqHPG2OJFxWZLbRPXiPJ7QLjCkHPRtCRc3BSCnGI PbXUHmkd2SBXYxOCMwHVUxXDOaVHPfKZXiMQykPVOlRVU8HtItCLZfXVFcTY9GZsWnDQMmKwAtLYVaWN UqGIYixs0IPOOhLSQdZVZgDgArTQWiFYWzJTtrHIBw IUFcANH9AKXvKOWyRN8XZrLgUIOpSqM0WFReDXGoVISqrv9QURUvGPZiCzJ2VPKiZJFeRHFmPOlaRTMh VMPhDDI2YUTfQDBbDF0NTsQwDHWlVaY5MOEhQXLrCDEmbz1QvNXlhZcodn0GGVcSRd8CpQcyABS9FZsm Kv7tlLUoXmPgGCHLNm0CytDoVGIjCGJWSZbcDSSvBC VkLlcsIWSfUKCzH7EqJVD8HVL3JhZqEUEnTQDyQBs2GqD2M7VwDUI6AHZdJJLoIDS0RXs9EqOaFDPvJZ IwNWNhODk+XV9yXHy+Yl3Db1YtcjJ1xbOpTMlvHdn2DH8CHBVUL3WURl== ID Date Data Source [id number] 05/02/2021 09:59:00 AM EDT [facility] Name Value Range Interpretation Code Description Data Arabella rce(s) Supporting Document(s) 2nd Confirmation Type A Positive [facility] The above 1 analytes were performed by [facility] [place] [id number] [facility], ,[place] [address] ID Date Data Source [id number] 05/02/2021 06:18:00 AM EDT [facility] Name Value Range Interpretation Code Description Data Arabella rce(s) Supporting Document(s) ABO-Rh Typing A Positive [facility] Antibody Screen Negative [facility] Specimen Expires Date/Time [facility] PATIENT HISTORY Pt Hx Checked [facility] The above 4 analytes were performed by [facility] [place] [id number] [facility], ,[place] [address] ID Date Data Source [id number] 05/02/2021 05:24:00 AM EDT [facility] Name Value Range Interpretation Code Description Data Arabella rce(s) Supporting Document(s) AST 14 IU/L 15-37 Below low normal [facility] Sulfasalazine and sulfapyridine have the potential to falsely depressAspartate Aminotransferase results. Baseline values before medication administration are recommended. ALT 56 IU/L 13-56 Normal (applies to non-numeric resul ts) [facility] Sulfasalazine and sulfapyridine have the potential to falsely depressAlanine Aminotransferase results. Baseline values before medication administration are recommended. Alkaline Phosphatase 110 mIU/ml 50-136 Normal (applies to n on-numeric results) [facility] Total Bilirubin 1.40 mg/dl 0.20-1.00 Above high normal [facility] Blood Urea Nitrogen 12 mg/dl 7-18 Normal (applies to non-nume ny results) [facility] Creatinine 0.79 mg/dl 0.51-0.95 Normal (applies to non-numeric resul ts) [facility] N-Acetylcysteine (NAC) and Metamizole em ve the potential to falselydepress Creatinine results. Baseline values before medication adminstration are recommended. Patients undergoing treatment with phenindione will have falselydepressed results. Patients on phenindione therapy should be tested with an alternativeCREA method.Toxic levels of acetaminophen may lead to falsely depressed results forpatient samples. Glomerular Filtration Rate 81.00 mL/min/1.73m2 [facility] GFR Reference Ranges:Normal Function or Mild [...] of Health and the National KidneyFoundation. The [place] method used in calculating this result is traceable to IDMS standards. Glucose 85 mg/dl 70-110 Normal (applies to non-numeric resul ts) [facility] Sulfasalazine has the potential to false ly depress Glucose results. Sulfapyridine has the potential to falsely elevate Glucose results. Baseline values before medication administration are recommended. Calcium 8.7 mg/dl 8.5-10.1 Normal (applies to non-numeric resul ts) [facility] Total Protein 7.1 g/dl 6.4-8.2 Normal (applies to non-numeric re sults) [facility] Albumin 3.1 g/dl 3.4-5.0 Below low normal [facility] Sodium 139 mEq/L 136-145 Normal (applies to non-numeric resul ts) [facility] Potassium 3.6 mEq/L 3.5-5.1 Normal (applies to non-numeric resul ts) [facility] Chloride 112.0 mEq/L 98.0-107.0 Above high normal [facility] Anion Gap 6.6 [facility] Carbon Dioxide 24.0 mMol/L 21.0-32.0 Normal (applies to non-numeric results) [facility] The above 16 analytes were performed by [facility] [id number] [facility], ,[place] [address] ID Date Data Source [id number] 05/02/2021 05:16:00 AM EDT [facility] Name Value Range Interpretation Code Description Data Arabella rce(s) Supporting Document(s) Hemoglobin 9.7 g/dl 12.0-16.0 Below low normal [facility] The above 1 analytes were performed by [facility] [address] [facility], ,[place] [address] ID Date Data Source [id number] 05/02/2021 05:16:00 AM EDT [facility] Name Value Range Interpretation Code Description Data Araeblla rce(s) Supporting Document(s) Hematocrit 31.7 % 37.0-47.0 Below low normal [facility] The above 1 analytes were performed by [facility] [place] [address], ,[place] [address] ID Date Data Source [id number] 05/01/2021 11:33:00 PM EDT [facility] Name Value Range Interpretation Code Description Data Arabella rce(s) Supporting Document(s) Care Plan [facility] JGAEVs7dVcHRDjJx79/YSLguDKSqe7QvZAueNPe9CQsxODIgL4VpXFG8uZ2pERS6KDiKJeYlHcYlODWn [facility] [file] YNCg== ID Date Data Source [id number] 05/01/2021 06:29:00 PM EDT [facility] Name Value Range Interpretation Code Description Data Arabella rce(s) Supporting Document(s) SARS coronavirus 2 RNA [Presence] in Res piratory specimen by MELINDA with probe detection NEGATIVE [facility] This lab was ordered by [facility] a nd reported by [facility]. ID Date Data Source [id number] 04/28/2021 06:15:43 PM EDT [facility] Name Value Range Interpretation Code Description Data Arabella rce(s) Supporting Document(s) Nursing Note [facility] MFAUUa3aJwDGRsTv94/SIKfzDWVjn8TjDHlsFLt4PEiiIWZbA5CyCJM4sO6tOTI8GOpZHkOfIfMjJPGa lbm [file] DpfObjJBRMZeXkCEn3LQpdJIOPPd7O ID Date Data Source [id number] 04/28/2021 04:30:15 PM EDT [facility] Name Value Range Interpretation Code Description Data Arabella rce(s) Supporting Document(s) Discharge Summary [facility] JWYNAo0xNjSZJlRl22/PAHbcUTTfl0XcYCqaUVq1EKqaSVIwZ5JaDFH4hE4dDRO8UPdSZpPiFdBqTOJn lbm [file] ez+XKyna+W/Nvl037+V2+mk/fisher weir+pdfxMnrIXbuyUTG [file] AgICAvRjMgMjUgMCBSDQogICAgICAvRjQgMjggMCBS VVdiKPZhDZFuNyJtEhOyEIDVZb1KUjEkIVVnLB4tprYtrTE9CCG+Oj6HKUBeOZ7FcDSMW5OdmFAjDDhv F2MQCE3RDZH8AL8VtWQoXF9WqFSPM2EqjLIzHq8sATIqf7WtWt1rG6GXZEEYMJBqZIbsTJxoNMYfZPv5 I4G2UZZkB5WST632cCPlcKx5Uj4eC1BPEZjAOqAwRA nuUPicQALoJCb8Y0U4SNShT2VZW0EmUfIbhmPrL8X+LmLhUDUDJD8EJPAIWIs0V1P8cIGhF2Z6kXuDiI W9MI0JQY5OvOAhmLOmq71+VpELXrKoGHSuK5SRUNATQpHkWQxtDUlwRPTiTHn9E3S3GVOzL5CGR2ksP8 h0ZW4+RwDRErWqVHSbMh5ZMcStLu3SJwHaSX1hfq8T QrEjWSRoZjnELri0E4tzkda0mDKjRwZ7B5G8TwL1kQPxFN6PT0F5cOQiMQQ2JVGbpIT+Ed6Kb2AuMLZw LKu3Z5znAHPiOKPwMxMqtB49V++8vwewjTY3W0o3XXQGuYPszUrRrtAmY9pWDQI3o9Y1DWw/Fm9URFY7 lFy3eCRuKIRxWGk1xS3zkXy0BeCkBS92DYWmFGxxhI 7rPnm6A0Ryx7EcYk5wLh0ghOUnTb4OOtVsMBT0dvDyMyHFYnP6uXtwqnyoQTR6K9c5qJB5Zr09w7ltzi Udo4XgStU5AAhzLOEpGiGeppWwRNM6aqJgsA9sylJfJh0OJFSyMRypsoLtWaJTGy6EDhXzTO21UgeolP 1ldGE+DQogICAgICAgICAgICAgICAgICAgICAgICAg ICAgICAgICAgICAgICAgICAgICAgICAgICAgICAgICAgICAgICAgICAgICAgICAgICAgICAgICAgICAg ICAgICAgICAgICAgICAgDQogICAgICAgICAgICAgICAgICAgICAgICAgICAgICAgICAgICAgICAgICAg ICAgICAgICAgICAgICAgICAgICAgICAgICAgICAgIC AgICAgICAgICAgICAgICAgICAgICAgICAgDQogICAgICAgICAgICAgICAgICAgICAgICAgICAgICAgIC AgICAgICAgICAgICAgICAgICAgICAgICAgICAgICAgICAgICAgICAgICAgICAgICAgICAgICAgICAgIC AgICAgICAgDQogICAgICAgICAgICAgICAgICAgICAg ICAgICAgICAgICAgICAgICAgICAgICAgICAgICAgICAgICAgICAgICAgICAgICAgICAgICAgICAgICAg ICAgICAgICAgICAgICAgICAgDQogICAgICAgICAgICAgICAgICAgICAgICAgICAgICAgICAgICAgICAg ICAgICAgICAgICAgICAgICAgICAgICAgICAgICAgIC AgICAgICAgICAgICAgICAgICAgICAgICAgICAgDQogICAgICAgICAgICAgICAgICAgICAgICAgICAgIC AgICAgICAgICAgICAgICAgICAgICAgICAgICAgICAgICAgICAgICAgICAgICAgICAgICAgICAgICAgIC AgICAgICAgICAgDQogICAgICAgICAgICAgICAgICAg ICAgICAgICAgICAgICAgICAgICAgICAgICAgICAgICAgICAgICAgICAgICAgICAgICAgICAgICAgICAg ICAgICAgICAgICAgICAgICAgICAgDQogICAgICAgICAgICAgICAgICAgICAgICAgICAgICAgICAgICAg ICAgICAgICAgICAgICAgICAgICAgICAgICAgICAgIC AgICAgICAgICAgICAgICAgICAgICAgICAgICAgICAgDQogICAgICAgICAgICAgICAgICAgICAgICAgIC AgICAgICAgICAgICAgICAgICAgICAgICAgICAgICAgICAgICAgICAgICAgICAgICAgICAgICAgICAgIC AgICAgICAgICAgICAgDQogICAgICAgICAgICAgICAg ICAgICAgICAgICAgICAgICAgICAgICAgICAgICAgICAgICAgICAgICAgICAgICAgICAgICAgICAgICAg JIGnASQyLIJbRSChGYOfXZUmGLBwPPTbORi4X8guQSLhTMHtHW1uOLd1Mt7+DPaLVkCdDKI8quWhfD5Y KE5xu2FxPFsqAFKuu9IgVIo1MV3KDVInXTuuVX7XVF kzbz5TAMIfYRNrdVJAl7dpWmPiUAH5DGXyLmzqYN7YDVXzW8lgmoVnYKNwDRKJHRorSPPVNBiqUEEUUY EmYOPaCyPfFoThIIYcIL7RRLDaN220bnUlMA4MPg0LWdInXB5zrz5OKkUxIYJtTmsNCap4HQeoCK3FcG CtoUSuGEKcVHAXZrGuR8qli6ItIkIuEQMSTNcrXR2H x3NzlYQgNFq+Qk4FIC2pz4NyDMkeELCsQB3gmd4MJCuDCnJpW0OljKnkVQZwj0QgGKZwBGKPbY8uGXQ1 QFJ4BACrqmBwV0ddpk42FZXFYPKccYF3WcFnXsZvHuPrQEF4FhwcQX6mJEsfNO8WQSA3ZYevHXFoRBMt S1gHAtGxMMgwAIZurCjeOK9WOeZqI9CnlhMoaWYqWE AwIFINCj4+ULydyoSpNvjVTaJ4VWHer2KlCNp4FF5ARKFdVLbqSC0LMGJxuG7xPYxrDX0SFiYyBpYhAL DTCcKjQ85bbYUsFZz3A8SnHbOjLJJbBgfhXAFhQYwtIaTxDQEtPrYyUWsnGV9+ID4+MGiuCO5NETgffg QwWTEqWf7GYZEpNEEwVG5jACHtGHSwI4U3rUexTXEE EoXdI3icgqvhEZ7wASPfT466zHdxogHiZPG9RFAuXi6KUTVvOXI8OEVmuUQtUcYpJSXZQFagFA7EjLSk TSP3mS9oNThpVAGwFPMoR6cQMsPhoVsfZZ11pHeunsFadCSrANb+Qf2BYI6rv0NvIDx8znIcZCfiODX3 PEcrBOOfTLGbTWPtCRB4FPT1IYYWEiUmFBJdGIEzHN yvWJIbEMYclu5VWCPgCKBrANS6QxRiAQAhLQPjFIqhSEPzLQYhKCY9EZHlQYAjNF3IXuKaXGDwJAKzYP nuAEWvIGVqpg1ZJFSwXRHdKuS9BFXyOSEaEPQiKAccUEAyVJGxYmjkXYPaELCpYA9CYpOqWHJvRBQ9NL ItKWJoCBPtqc2HDZVhQRHnCOyxNrHsVTReBUJoJUlv CEEzBQW4LqMiTHAeMGXtHU8BWeMgJKFtSUr3NgJiVDFcTNCbgn0TIBBtSYRpWWr5GRMwZCLqDCUyNYvu MUUfYVIePPshWBMsXQYjQB3NWhSyWBScYPTbSzZxKKDfAMXzve1GNFHpGZQtEjVtJkVrDRChAZAjQNfw ONUvBKZ6KRn7VUOtGLMmZN3PCxWeXHQuHHKpXJaeJK PqGNSksu5NBXSjWSTfDEE4QGImRIQxCPJdYJvcIKCjENV2DEJ2CGXqWDWxUD8JHcWoJCMyXFY0NNEsPB LxLGIxdy6SQCDoYUJnIFjnPMVjFXKoKYYvXYhoKAAeYBI1MIlkJVZqJWZyVX0XCoYwKTPdROquRFFbCY OgJGDkar6JRPMsVGRoRkL0ODGeVVVaVBCfAXbfFOBc AJL8RxK5DPNrRWFkQG2TRsBoNIMaGTc5UrLqPMFwNHUhfg5QNGNlGIOuHBPeLOOkTFAgKXZuTGatCDNd WWH0ITapLMZqHRRhPA5MIzEsQERfUCn8QKDiIBSpKIPgmr9MBXMkEIUhJIz1NOLlLPRlILQlFBoyDNZh ZNRuAVU4JJTyVMFsPG9ABnZkDUOpCsGePLQwDHHhBO Rrgm3MVWVpHKMbXQLuXDFhZANwEFHrUUebJLNnGDSxCND5OILoSCPkEE2ASvLtQCGyTzGnRKUbSWGwMZ Uqpm4HPCZlIMPxWlM8ZYVvUFCgYWUcZXcoWVLdELSdZQRqAGNyTBOeNS0LNnDpCKrxURLQIvm1WEgrJ6 g6ABUaHs8HA6Jmm3LgKxDvNYNEOMxvUF0jyjIjMQPc Az2LG5wIAqbgBRErKizuPgCzYyG2GpOtHDS6HOjiABshFCE4ARIxRy9uMYYbLaEhYKHwQJHxMjMyPcH2 OORgGHEfZ8H0VKe4KCEuEkHjSP1IOz1VZkR4JKK8xQJmRw4TGeA7WDLNPlVfXT8RAXk= ID Date Data Source [id number] 04/28/2021 03:03:23 PM EDT [facility] Name Value Range Interpretation Code Description Data Arabella rce(s) Supporting Document(s) Care Plan [facility] OEDTZj3sDbYOTfGp48/TTZmqVMQsq6XyXCufIUx7AFqtRCMvU0JhKNF2rE7zZOM7UIsCJuOiNkSsZJCt lbm [file] DQo= ID Date Data Source [id number] 04/28/2021 12:53:00 PM EDT [facility] Name Value Range Interpretation Code Description Data Arabella rce(s) Supporting Document(s) Glucose, Fingerstick 131 mg/dl 70-110 Above high normal [facility] The above 1 analytes were performed by [facility] [place] [address], ,[place] [address] ID Date Data Source [id number] 04/28/2021 11:25:13 AM EDT [facility] Name Value Range Interpretation Code Description Data Arabella rce(s) Supporting Document(s) Nursing Note [facility] SDIXCn0vHoDSGzEi29/TDOerVTAev4GqZUedUFb7DDnjUXOcJ1QpPGA9iD9cFVN4ZKtUBdIgVnCjAYEh lbm MeAihWNeIaIKJpPleVDgJkVHfoNeuibJFxRG8AoBL5LDLxL89mFWSmBLNzL9JkADclRv9+PAbyETG3sa OypI4TJBELROfOPxPNxg/U/rFYGhLN3e1hNTEwIUNSMQXRfGp7UFXVTlYyIYrtp2366a2nWV6NAQVLkf QdeWY+zzeHvQHwfz+hpSVjDPLP+lFbATdjePsGKrVE [file] JCJRWcUvHGDqHVjoYWNOCj6I ID Date Data Source [id number] 04/28/2021 06:07:30 AM EDT [facility] Name Value Range Interpretation Code Description Data Arabella rce(s) Supporting Document(s) Nursing Note [facility] PGAQIl6fXuXEWjCf55/TVVwsVDUav6PbRYyfCAd2SFhbFVYsO5McRDY3zC1mLBN7QJcYUjNdDgKiAVNy lbm [file] VbXXCtTINeDKw3RIAmRoZdBAF2KbTvCk5nISYRUl8+WEghrQEsgCkmKRSKIqTfGQA3MVuqNYMEJn2Y ID Date Data Source [id number] 04/28/2021 05:35:00 AM EDT [facility] Name Value Range Interpretation Code Description Data Arabella rce(s) Supporting Document(s) Glucose, Fingerstick 72 mg/dl 70-110 Normal (applies to non-num madiha results) [facility] The above 1 analytes were performed by [facility] [place] [address], ,[place] [address] ID Date Data Source [id number] 04/28/2021 05:43:00 AM EDT [facility] Name Value Range Interpretation Code Description Data Arabella rce(s) Supporting Document(s) AST 126 IU/L 15-37 Above high normal [facility] Sulfasalazine and sulfapyridine have the potential to falsely depressAspartate Aminotransferase results. Baseline values before medication administration are recommended. ALT 193 IU/L 13-56 Above high normal [facility] Sulfasalazine and sulfapyridine have the potential to falsely depressAlanine Aminotransferase results. Baseline values before medication administration are recommended. Alkaline Phosphatase 172 mIU/ml 50-136 Above high normal [facility] Total Bilirubin 1.30 mg/dl 0.20-1.00 Above high normal [facility] Blood Urea Nitrogen 7 mg/dl 7-18 Normal (applies to non-nume ny results) [facility] Creatinine 0.75 mg/dl 0.51-0.95 Normal (applies to non-numeric resul ts) [facility] N-Acetylcysteine (NAC) and Metamizole em ve the potential to falselydepress Creatinine results. Baseline values before medication adminstration are recommended. Patients undergoing treatment with phenindione will have falselydepressed results. Patients on phenindione therapy should be tested with an alternativeCREA method.Toxic levels of acetaminophen may lead to falsely depressed results forpatient samples. Glomerular Filtration Rate 86.00 mL/min/1.73m2 [facility] GFR Reference Ranges:Normal Function or Mild [...] of Health and the National KidneyFoundation. The [place] method used in calculating this result is traceable to IDPR standards. Glucose 77 mg/dl 70-110 Normal (applies to non-numeric resul ts) [facility] Sulfasalazine has the potential to false ly depress Glucose results. Sulfapyridine has the potential to falsely elevate Glucose results. Baseline values before medication administration are recommended. Calcium 8.2 mg/dl 8.5-10.1 Below low normal [facility] Total Protein 6.5 g/dl 6.4-8.2 Normal (applies to non-numeric re sults) [facility] Albumin 2.9 g/dl 3.4-5.0 Below low normal [facility] Sodium 135 mEq/L 136-145 Below low normal [facility] Potassium 3.6 mEq/L 3.5-5.1 Normal (applies to non-numeric resul ts) [facility] Chloride 108.0 mEq/L 98.0-107.0 Above high normal [facility] Anion Gap 8.7 [facility] Carbon Dioxide 21.9 mMol/L 21.0-32.0 Normal (applies to non-numeric results) [facility] The above 16 analytes were performed by [facility] [address], ,[place] [address] ID Date Data Source [id number] 04/28/2021 04:59:00 AM EDT [facility] Name Value Range Interpretation Code Description Data Arabella rce(s) Supporting Document(s) WBC 5.64 x1000/ul 4.80-10.00 Normal (applies to non-numeric re sults) [facility] RBC 3.80 x1Mil/ul 4.20-5.40 Below low normal [facility] Hemoglobin 9.9 g/dl 12.0-16.0 Below low normal [facility] Hematocrit 31.6 % 37.0-47.0 Below low normal [facility] MCV 83.2 fL 81.0-99.0 Normal (applies to non-numeric resul ts) [facility] MCH 26.1 pg 27.0-31.0 Below low normal [facility] MCHC 31.3 g/dl 32.2-37.0 Below low normal [facility] RDW 14.4 % 11.5-14.5 Normal (applies to non-numeric resul ts) [facility] Platelet Count 253 x1000/ul 130-400 Normal (applies to non-numeric results) [facility] MPV 10.5 fL 9.4-12.4 Normal (applies to non-numeric resul ts) [facility] Neutrophils 56.6 % 40.0-74.0 Normal (applies to non-numeric resu lts) [facility] Lymphocytes 32.1 % 19.0-48.0 Normal (applies to non-numeric resu lts) [facility] Monocytes 7.6 % 3.4-9.0 Normal (applies to non-numeric resul ts) [facility] Eosinophils 3.0 % 0.0-7.0 Normal (applies to non-numeric resu lts) [facility] Basophils 0.5 % 0.0-2.0 Normal (applies to non-numeric resul ts) [facility] Immature Granulocytes 0.2 % 0.0-0.5 Normal (applies to non-nu meric results) [facility] Nucleated RBCs 0.00 % 0.00-0.20 Normal (applies to non-numeric r esults) [facility] Abs. Neutrophils 3.19 x1000/ul 1.92-8.31 Normal (applies to non-numeric results) [facility] Abs. Lymphocyte 1.81 x1000/ul 1.20-3.70 Normal (applies to non-n umeric results) [facility] Abs. Monocytes 0.43 x1000/ul 0.14-0.97 Normal (applies to non-nu meric results) [facility] Abs. Eosinophils 0.17 x1000/ul 0.00-0.76 Normal (applie s to non-numeric results) [facility] Abs. Basophils 0.03 x1000/ul 0.00-0.22 Normal (applies to non-n umeric results) [facility] Abs. Immature Gran. 0.01 x1000/ul 0.00-0.02 Normal (appl ies to non-numeric results) [facility] Abs. Nucleated RBCs 0.00 x1000/ul 0.00-0.02 Normal (appl ies to non-numeric results) [facility] The above 24 analytes were performed by [facility] [address],[id number],[place] [address] ID Date Data Source [id number] 04/28/2021 02:02:18 AM EDT [facility] Name Value Range Interpretation Code Description Data Arabella rce(s) Supporting Document(s) Care Plan [facility] OFIOPt3jRyNSVgSy57/EDWuoVXGrf0MwWMquHOp1XRxhGJGrA3FrJCH5rR0cBYL8GNeJKgVqZbIeEVKo lbm [file] RhyZlPaBfFqskroqUW38CV2T38DspZRn9PMsI/F/traffic attendant [file] hJT+zwSvrBDo+pD9NY5fh8aq0bhGa4fx1GWgX52E/carlos a/8OfFEDkqwGja9pItaHbGCEopjbKiG4GkX42G [file] E2YMPKLrLbPN6ZQQh= ID Date Data Source [id number] 04/28/2021 12:07:00 AM EDT [facility] Name Value Range Interpretation Code Description Data Arabella rce(s) Supporting Document(s) Glucose, Fingerstick 80 mg/dl 70-110 Normal (applies to non-num madiha results) [facility] The above 1 analytes were performed by [facility] [address], ,[place] [address] ID Date Data Source [id number] 04/27/2021 07:16:45 PM EDT [facility] Name Value Range Interpretation Code Description Data Arabella rce(s) Supporting Document(s) Nursing Note [facility] ZXLFLc7zAnXSXwDj50/ECBllKJVkz6JsDEqsYDj4HRhsLDTjN1VgBVS3rS6zOTZ9YZhHKpWeRgJpKWM8 lbm [file] N6dBBhEf6AKkSuCPQPHtKgGR1LGIi= ID Date Data Source [id number] 04/27/2021 05:52:00 PM EDT [facility] Name Value Range Interpretation Code Description Data Arabella rce(s) Supporting Document(s) Glucose, Fingerstick 81 mg/dl 70-110 Normal (applies to non-num madiha results) [facility] The above 1 analytes were performed by [facility] [id number],[place] [address] ID Date Data Source [id number] 04/27/2021 03:06:47 PM EDT [facility] Name Value Range Interpretation Code Description Data Arabella rce(s) Supporting Document(s) Progress Notes [facility] GTEJCu6eHaLBGcMy11/TAJpuCAYsd8KaVAdoCSm8ZEpxYATsU9CwBQC2kU1zNEE7VLsEAbQpEvDdNMB3 lbm [file] apBNDDCd8F ID Date Data Source [id number] 04/27/2021 02:37:54 PM EDT [facility] Name Value Range Interpretation Code Description Data Arabella rce(s) Supporting Document(s) Progress Notes [facility] NIYMCc6oZzIZHtFz35/QYCywOWEyu7BjPZdxGAv9AExeXHHlJ2TeJOC2eQ7sLTP5HJjMNlNiBzMzGYQ2 lbm [file] UGohqXHjtLgmFVWMReYtPoh7AVnuOCADXw3Y ID Date Data Source [id number] 04/27/2021 02:46:00 PM EDT [facility] Name Value Range Interpretation Code Description Data Arabella rce(s) Supporting Document(s) Ferritin 17.7 ng/ml 3.0-388.0 Normal (applies to non-numeric resul ts) [facility] The above 1 analytes were performed by [facility] [address] [employer], ,[place] [address] ID Date Data Source [id number] 04/27/2021 02:46:00 PM EDT [facility] Name Value Range Interpretation Code Description Data Arabella rce(s) Supporting Document(s) Iron Saturation 42 [facility] Iron 186 ug/dl 50-170 Above high normal [facility] Patients treated with metal-binding drug s (e.g deferoxamine) may havedepressed iron values. Total Iron-Binding Capacity 440 ug/dl 250-450 Norm al (applies to non-numeric results) [facility] The above 3 analytes were performed by [facility] [address] [employer], ,[place] [address] ID Date Data Source [id number] 04/27/2021 02:46:00 PM EDT [facility] Name Value Range Interpretation Code Description Data Arabella rce(s) Supporting Document(s) AST 350 IU/L 15-37 Above high normal [facility] Sulfasalazine and sulfapyridine have the potential to falsely depressAspartate Aminotransferase results. Baseline values before medication administration are recommended. ALT 301 IU/L 13-56 Above high normal [facility] Sulfasalazine and sulfapyridine have the potential to falsely depressAlanine Aminotransferase results. Baseline values before medication administration are recommended. Alkaline Phosphatase 227 mIU/ml 50-136 Above high normal [facility] Total Bilirubin 1.50 mg/dl 0.20-1.00 Above high normal [facility] Blood Urea Nitrogen 8 mg/dl 7-18 Normal (applies to non-nume ny results) [facility] Creatinine 0.70 mg/dl 0.51-0.95 Normal (applies to non-numeric resul ts) [facility] N-Acetylcysteine (NAC) and Metamizole em ve the potential to falselydepress Creatinine results. Baseline values before medication adminstration are recommended. Patients undergoing treatment with phenindione will have falselydepressed results. Patients on phenindione therapy should be tested with an alternativeCREA method.Toxic levels of acetaminophen may lead to falsely depressed results forpatient samples. Glomerular Filtration Rate >90.00 mL/min/1.73m2 [facility] GFR Reference Ranges:Normal Function or Mild [...] of Health and the National KidneyFoundation. The [place] method used in calculating this result is traceable to IDMS standards. Glucose 86 mg/dl 70-110 Normal (applies to non-numeric resul ts) [facility] Sulfasalazine has the potential to false ly depress Glucose results. Sulfapyridine has the potential to falsely elevate Glucose results. Baseline values before medication administration are recommended. Calcium 8.6 mg/dl 8.5-10.1 Normal (applies to non-numeric resul ts) [facility] Total Protein 7.3 g/dl 6.4-8.2 Normal (applies to non-numeric re sults) [facility] Albumin 3.5 g/dl 3.4-5.0 Normal (applies to non-numeric resul ts) [facility] Sodium 136 mEq/L 136-145 Normal (applies to non-numeric resul ts) [facility] Potassium 4.5 mEq/L 3.5-5.1 Normal (applies to non-numeric resul ts) [facility] Chloride 108.0 mEq/L 98.0-107.0 Above high normal [facility] Anion Gap 12.0 [facility] Carbon Dioxide 20.5 mMol/L 21.0-32.0 Below low normal [facility] The above 16 analytes were performed by [facility] [address], ,[place] [address] ID Date Data Source [id number] 04/27/2021 12:43:26 PM EDT [facility] Name Value Range Interpretation Code Description Data Arabella rce(s) Supporting Document(s) Consults [facility] WHYGKx5wJuZMKwMx07/BIPlhNRLpu9WjORijPFn9QUsnYTFsU4WaDRE4kX3sNBJ3QSkOLcEoSzTyJEV0 [facility] [file] AgICAgICAgICAgICAgICAgICAgICAgICAgICAgICAg ICAgICAgICAgICAgICAgICAgICAgICANCiAgICAgICAgICAgICAgICAgICAgICAgICAgICAgICAgICAg ICAgICAgICAgICAgICAgICAgICAgICAgICAgICAgICAgICAgICAgICAgICAgICAgICAgICAgICAgICAg ICAgICANCiAgICAgICAgICAgICAgICAgICAgICAgIC AgICAgICAgICAgICAgICAgICAgICAgICAgICAgICAgICAgICAgICAgICAgICAgICAgICAgICAgICAgIC AgICAgICAgICAgICAgICANCiAgICAgICAgICAgICAgICAgICAgICAgICAgICAgICAgICAgICAgICAgIC AgICAgICAgICAgICAgICAgICAgICAgICAgICAgICAg ICAgICAgICAgICAgICAgICAgICAgICAgICANCiAgICAgICAgICAgICAgICAgICAgICAgICAgICAgICAg ICAgICAgICAgICAgICAgICAgICAgICAgICAgICAgICAgICAgICAgICAgICAgICAgICAgICAgICAgICAg ICAgICAgICANCiAgICAgICAgICAgICAgICAgICAgIC AgICAgICAgICAgICAgICAgICAgICAgICAgICAgICAgICAgICAgICAgICAgICAgICAgICAgICAgICAgIC AgICAgICAgICAgICAgICAgICANCiAgICAgICAgICAgICAgICAgICAgICAgICAgICAgICAgICAgICAgIC AgICAgICAgICAgICAgICAgICAgICAgICAgICAgICAg ICAgICAgICAgICAgICAgICAgICAgICAgICAgICANCiAgICAgICAgICAgICAgICAgICAgICAgICAgICAg ICAgICAgICAgICAgICAgICAgICAgICAgICAgICAgICAgICAgICAgICAgICAgICAgICAgICAgICAgICAg ICAgICAgICAgICANCiAgICAgICAgICAgICAgICAgIC AgICAgICAgICAgICAgICAgICAgICAgICAgICAgICAgICAgICAgICAgICAgICAgICAgICAgICAgICAgIC AgICAgICAgICAgICAgICAgICAgICANCiAgICAgICAgICAgICAgICAgICAgICAgICAgICAgICAgICAgIC AgICAgICAgICAgICAgICAgICAgICAgICAgICAgICAg ICAgICAgICAgICAgICAgICAgICAgICAgICAgICAgICANCjw/sDAjK8acwLSeduH6K5txKc4KFu8GDY8d x5TiWLQxTCetkrXsQwoSEyXoYIBrNazQMao5RGioPM3MyJDrZ7NfS0JvDRyhPX8JRJRzRCYzlTMzVTPt SIYnBcS1AFRmYVatMX5DlFYoYEczLSKiYHKxMuMzBQ YrCJVkDFZnEBMvJJHNUGSnANJdMvQxUPMyHUKvBYugHBNPZU8WCpHjG9HwbH06MIyXXb2+DQplbmRvYm lKOqTzDGMjv5DrJHh5TK8BGCYcDxiik1DgMXMrUQSURLchDB9DPTT5VFMrAROmTl9KBCGvH324hbQmUF 1UBb2VZeAlIW4lcx6TKIXiSOOzCoiBZgo8BJjhEL7N bDNyMByLf07woLa4ezTiyPOCbTzpgRLhMJOjH8UfCmJsEORZNVMadNV7SwO3KuGbCcEzTQX1ZJuoFM8t WWvaBM4VNYD1JQwfNEZsJLGhN5zWHtFoUYdoEYNksBthRL4HElQdJ7IkeeHhoCS0CKYlBPGWXe3+DQpl tzGdXkqXKgUeMXDnl5SkZPh4PX6WYWDxFJmdBF6EWO GrjL2mCUzjVD5NUkCiSKGpCCBEHrNdN95zpCObQOu8W1XuLcOlGDJmZamuPUCrZVwuOqGkKOQcMrQkSR ogID4+ID4+WWauOK7BYFoeknCjOHBfMk9UTAPiLFKkMC5rKVWcBDVoU3O7sWjcSVTZRuZaZ7zxbuyrBO 7wXQVdC413vNsousHvLQHcHJPeIk2JNBMtURN7AEXs zSMuGcsjAYIMDMiaDX7HeEUnSTJ8zR9cIGzlNBQwDFApX0gLDlZflLokKA57lNieqdEtgOZlFNk+Pg0K PJ7hm1EcJLh3gpKwPHmiDXRzSXtsMZAjLSTfDOXoPRE6WXY4PSETHwGnZHOyTPIyDQeyNDFyJGEtxo5F IZQeNCYkYyX3WpNgCMPoSXJvGEjmSDNmZBY2UOUcZB MqZLUbQV1WZhNbZVDlQAKlPLbaVSLnUOLdda1KWEDyUJEyEyJvYYUbABQjKWDpSMseBUEoZIKsUZE7TQ IvCFOkNH6IIlCjGGHeLJUtXNbzZVRoTVWixz8MLSGwDSLhZmVaSqGmWCRzTLCkZHwgYXVcMEF9VfIzWP VtIPWvXW4MVmAlAFHrWCf4FNGeNSThLZEher7BPKMf IMOhCNL7LqQjMFEsIHDfXRlyNMUkSIHzFOI8OZHpZORwEB5JDkZnUBHpEAKqIvLsESAuKZWfmf6JFYSi MTInChW2KBRySWKpLPYyJIjlFDGoPIW2EMg4MNZoYUIqTC7YTmJrWLQkFTQ4MAXnBVBiURVruf4BLZZr VNZaJUflTIPbEVMqJYNkPJduMLNsMMH3ENB0JDQySG WtUS7RYtQlNGVcIChjMOTqAGOcYPLype1NFTLbHFEiPmV1LgZmRTIwHCQjNGluUJXiDQO4AOr4OXHjBG DzDK0LDcWrXESbHRb5BrJgSVGtMZDaxl9OJDPcGFYvFRZwBVDsFEXgEMYiNKncBAEpPTD5DNW7PCSxUG PbMU5SKaDtRZIuQMk8KkWpKGAaFUOsar9ZSKSpYQBm YGf5EGWkDFOwKGPuGUdvFUSmXPOxBGbhGQFpQRLwXM0CMdKvWGPuMxIgRqfhARRaPLIvom7LJCQiDVFs VMDkFJOlIICgBDEdJIphXQVaKIJmKKY5OYHzQZMlUZ3ONnThARNfIzA8AuEwCKQgSCVzis7XEZSmVNBy HRI6IYTyOLGbQUQqEFnrYBFrTRE6PqR9WVRaJAZlKD 8ZXuGmTUIwQnH9PYlrXGKnAHZqff9OOANrUQMiSDj1EyQcONBaYTWiFWkeZVLnJWD8Bab3MMLkBNIqCH 1ZGkTcTURoYsI2NFNxOTBcBXBpwt9XDUUtHZKrXaA3BWOjUOCvPYIoRFjcOFViCEJ9EUFoDUWqQIFoTS 2UUqOnJBBtXph9BKfzECMyBAGogx5ENTVnEFUoBCE6 ISQdPEWzQVUtMMxrCFYeEFV3KmM8SPPySFVwFK3PUdHpHMikHDJJPqh7DLmfU4r1WWG7It2PJ6Auq7Su BDQdGARVAQbqCW0wdvIxKOXrLu9GJ6dLAcolEmS8TOMaMAtlLXM4CLYyQtT0SMHbBVVxMsjzCrobBE5f JPDoAfPvVYBxXHDhSqJ7YZVrEOT0WTIfPmJnRFF6Xm TaWoKoZF3XOi6TCuU0ETN5lPCjEi4YIcz0OBiWUtPxVE2SSZq= ID Date Data Source [id number] 04/27/2021 12:30:00 PM EDT [facility] Name Value Range Interpretation Code Description Data Arabella rce(s) Supporting Document(s) Amphetamines, Urine Negative Negative Normal (applies to non-nume ny results) [facility] Barbituates, Urine Negative Negative Normal (applies to non-numer ic results) [facility] Benzodiazepines, Urine Negative Negative Normal (a pplies to non-numeric results) [facility] Cannabanoids, Urine Positive Negative Abnormal (applies to non-numeric results) [facility] Cocaine, Urine Negative Negative Normal (applies to non-numeric r esults) [facility] Opiates, Urine Positive Negative Abnormal (applies to non-numeric results) [facility] PCP, Urine Negative Negative Normal (applies to non-numeric resul ts) [facility] Methadone, Urine Negative Negative Normal (applies to non-numeric results) [facility] DrugMinimum Detection Threshold (Conc.)A zmchmwcfhx8509 ng/mLBarbiturates 200 ng/mLBenzodiazepines 200 ng/mLCannabinoids 50 ng/mLCocaine Metabolites 300 ng/mLOpiates 300 ng/mLPhencyclidine (PCP) 25 ng/mLMethadone 300 ng/mLOxycodone 100 ng/mLNOTE: Phentermine may interfere with the amphetamine analysis.NOTE: This urine drug analysis is a screening procedure. Presumptivepositive results are unconfirmed.[facility] recommend submitting positive specimens to areference laboratory for confirmation. Oxycodone, Urine Negative Negative Normal (applies to non-numeric results) [facility] The above 9 analytes were performed by [facility] [place] [address], ,[place] [address] ID Date Data Source [id number] 04/27/2021 11:48:00 AM EDT [facility] Name Value Range Interpretation Code Description Data Arabella rce(s) Supporting Document(s) Glucose, Fingerstick 78 mg/dl 70-110 Normal (applies to non-num madiha results) [facility] The above 1 analytes were performed by [facility] [place] [address], ,[place] [address] ID Date Data Source [id number] 04/27/2021 08:10:31 AM EDT [facility] Name Value Range Interpretation Code Description Data Arabella rce(s) Supporting Document(s) Care Plan [facility] CGQOQx3yCdSJVkPd20/NGWlzSEMkd0QpFLmfUMz4BPawGYRtU9JvQIS9qC2hXFL1UQxVOrGfVeIiBCE6 lbm ZkElzTQcPfQOXnHldBGdEuBUylKvbgkUTbLS7WpJZ7KIPeI82hUEUnEDOrD0ZzVMz6Jb5+QRbaXTW5fd ImqH0PXSPzYHdy6pLJjq/Yf+KaUoHAreX4msPGht9HZaw9HAHRn8weP/ZFD1a3ClpbZpjm32Bl2UPiCd bLl4PINz0HPbFbL9G+3UFLhoQQyP+En0Px7C/g9Suo eYR6CHqrUDA3sBFJfM3nTfA949ZJRiJFvie1XRhs3FBJFALFBQaGM7VIxoG4MGzFIVnPKGsU1V6I6TAO Lw7AVSe9LT4H5yzlOUzFnmojnx4R02BtceYQ9BOyiAqxQgCulXImBZdIMPgjwCvFxAhCwVShl7CrfY7v n5GBLxH6rrtOfy2XuoJFfZOoo4V1eSrEV56LWeZWLk l6F5nTBYctb5kbbTbF8YJ8U/KCv7DBcNwVS8aPVAKhKyGJIt4pi8iWARwWvTqXMUYP64Bs7WrAxMg3Jf 5E9fB5IulVbq9TEULwvmpzeItUS/glLK1Z7GhVxKyeIVIrEnP1z9oW4icfeJSjNnNU/6ilp0gm3UdC98 ql+PzWLDcuxisndbOurI/96ao4gKr4iAtSW5/dmlsr SZ4CayuVSBBpq9VcpmyN1mwWHgoQdzclFXveQu7Cm9O82TrxXG5cZ4+SQrU0JEZRg3tHBvJ8yNHCRMLW F4dxTWD6sF5tpTvZIT8Q1LwpFCwyJMYS5Bdft5vaF7UvxYylJXpWfcJdib2wX/Madonna/D10v18gAtx5yd7 [file] GINxVhTrg5VPpkJAPFVv5F ID Date Data Source [id number] 04/27/2021 06:03:19 AM EDT [facility] Name Value Range Interpretation Code Description Data Arabella rce(s) Supporting Document(s) Nursing Note [facility] LVGAWi6kBjCGSbCk09/MVPyjJBVrc5MrVMnmLSg5WOvtDNIeW9XcFYU5aD6uCZR5FEyEYmZvIbSaIIG2 lbm [file] t4GmHwPS4HPo0GYeO5WPS8aCVvRh1JLwXaDICRNlQaYQ0TPCo= ID Date Data Source [id number] 04/27/2021 05:24:00 AM EDT [facility] Name Value Range Interpretation Code Description Data Arabella rce(s) Supporting Document(s) Glucose, Fingerstick 88 mg/dl 70-110 Normal (applies to non-num madiha results) [facility] The above 1 analytes were performed by [facility] [place] [address], ,[place] [address] ID Date Data Source [id number] 04/27/2021 05:58:00 AM EDT [facility] Name Value Range Interpretation Code Description Data Arabella rce(s) Supporting Document(s) Blood Urea Nitrogen 9 mg/dl 7-18 Normal (applies to non-nume [place] results) [facility] Creatinine 0.72 mg/dl 0.51-0.95 Normal (applies to non-numeric resul ts) [facility] N-Acetylcysteine (NAC) and Metamizole em ve the potential to falselydepress Creatinine results. Baseline values before medication adminstration are recommended. Patients undergoing treatment with phenindione will have falselydepressed results. Patients on phenindione therapy should be tested with an alternativeCREA method.Toxic levels of acetaminophen may lead to falsely depressed results forpatient samples. Glomerular Filtration Rate >90.00 mL/min/1.73m2 [facility] GFR Reference Ranges:Normal Function or Mild [...] of Health and the National KidneyFoundation. The [place] method used in calculating this result is traceable to IDPR standards. Glucose 80 mg/dl 70-110 Normal (applies to non-numeric resul ts) [facility] Sulfasalazine has the potential to false ly depress Glucose results. Sulfapyridine has the potential to falsely elevate Glucose results. Baseline values before medication administration are recommended. Calcium 8.1 mg/dl 8.5-10.1 Below low normal [facility] Sodium 137 mEq/L 136-145 Normal (applies to non-numeric resul ts) [facility] Potassium 3.8 mEq/L 3.5-5.1 Normal (applies to non-numeric resul ts) [facility] Chloride 109.0 mEq/L 98.0-107.0 Above high normal [facility] Anion Gap 11.1 [facility] Carbon Dioxide 20.7 mMol/L 21.0-32.0 Below low normal [facility] The above 10 analytes were performed by [facility] [address],[id number],[place] [address] ID Date Data Source [id number] 04/27/2021 05:35:00 AM EDT [facility] Name Value Range Interpretation Code Description Data Arabella rce(s) Supporting Document(s) WBC 8.06 x1000/ul 4.80-10.00 Normal (applies to non-numeric re sults) [facility] RBC 3.77 x1Mil/ul 4.20-5.40 Below low normal [facility] Hemoglobin 9.8 g/dl 12.0-16.0 Below low normal [facility] Hematocrit 31.6 % 37.0-47.0 Below low normal [facility] MCV 83.8 fL 81.0-99.0 Normal (applies to non-numeric resul ts) [facility] MCH 26.0 pg 27.0-31.0 Below low normal [facility] MCHC 31.0 g/dl 32.2-37.0 Below low normal [facility] RDW 14.4 % 11.5-14.5 Normal (applies to non-numeric resul ts) [facility] Platelet Count 233 x1000/ul 130-400 Normal (applies to non-numeric results) [facility] MPV 10.0 fL 9.4-12.4 Normal (applies to non-numeric resul ts) [facility] Neutrophils 68.6 % 40.0-74.0 Normal (applies to non-numeric resu lts) [facility] Lymphocytes 21.7 % 19.0-48.0 Normal (applies to non-numeric resu lts) [facility] Monocytes 6.8 % 3.4-9.0 Normal (applies to non-numeric resul ts) [facility] Eosinophils 1.9 % 0.0-7.0 Normal (applies to non-numeric resu lts) [facility] Basophils 0.6 % 0.0-2.0 Normal (applies to non-numeric resul ts) [facility] Immature Granulocytes 0.4 % 0.0-0.5 Normal (applies to non-nu meric results) [facility] Nucleated RBCs 0.00 % 0.00-0.20 Normal (applies to non-numeric r esults) [facility] Abs. Neutrophils 5.53 x1000/ul 1.92-8.31 Normal (applies to non-numeric results) [facility] Abs. Lymphocyte 1.75 x1000/ul 1.20-3.70 Normal (applies to non-n umeric results) [facility] Abs. Monocytes 0.55 x1000/ul 0.14-0.97 Normal (applies to non-nu meric results) [facility] Abs. Eosinophils 0.15 x1000/ul 0.00-0.76 Normal (applie s to non-numeric results) [facility] Abs. Basophils 0.05 x1000/ul 0.00-0.22 Normal (applies to non-n umeric results) [facility] Abs. Immature Gran. 0.03 x1000/ul 0.00-0.02 Above high normal [facility] Abs. Nucleated RBCs 0.00 x1000/ul 0.00-0.02 Normal (appl ies to non-numeric results) [facility] The above 24 analytes were performed by [facility] [address], ,[place] [address] ID Date Data Source [id number] 04/27/2021 03:19:48 AM EDT [facility] Name Value Range Interpretation Code Description Data Arabella rce(s) Supporting Document(s) Care Plan [facility] QBTIFl9sGpDJQcUk53/PCYhwDUOsv8RhBWvkGHn0BYxkYNTqN3RwDUN1dI7kAVA1VOhKPsUsXjHzMMG1 lbm [file] ICAgICAgICAgICAgICAgICAgICAgICAgICAgICAgICAgICAgICAgICAgICAgICAgICAgICAgICAgICAg ICAgICAgICAgICAgICAgICAgICAgICAgICANCiAgIC AgICAgICAgICAgICAgICAgICAgICAgICAgICAgICAgICAgICAgICAgICAgICAgICAgICAgICAgICAgIC AgICAgICAgICAgICAgICAgICAgICAgICAgICAgICAgICAgICANCiAgICAgICAgICAgICAgICAgICAgIC AgICAgICAgICAgICAgICAgICAgICAgICAgICAgICAg ICAgICAgICAgICAgICAgICAgICAgICAgICAgICAgICAgICAgICAgICAgICAgICANCiAgICAgICAgICAg ICAgICAgICAgICAgICAgICAgICAgICAgICAgICAgICAgICAgICAgICAgICAgICAgICAgICAgICAgICAg ICAgICAgICAgICAgICAgICAgICAgICAgICAgICANCi AgICAgICAgICAgICAgICAgICAgICAgICAgICAgICAgICAgICAgICAgICAgICAgICAgICAgICAgICAgIC AgICAgICAgICAgICAgICAgICAgICAgICAgICAgICAgICAgICAgICANCiAgICAgICAgICAgICAgICAgIC AgICAgICAgICAgICAgICAgICAgICAgICAgICAgICAg ICAgICAgICAgICAgICAgICAgICAgICAgICAgICAgICAgICAgICAgICAgICAgICAgICANCiAgICAgICAg ICAgICAgICAgICAgICAgICAgICAgICAgICAgICAgICAgICAgICAgICAgICAgICAgICAgICAgICAgICAg ICAgICAgICAgICAgICAgICAgICAgICAgICAgICAgIC ANCiAgICAgICAgICAgICAgICAgICAgICAgICAgICAgICAgICAgICAgICAgICAgICAgICAgICAgICAgIC AgICAgICAgICAgICAgICAgICAgICAgICAgICAgICAgICAgICAgICAgICANCiAgICAgICAgICAgICAgIC AgICAgICAgICAgICAgICAgICAgICAgICAgICAgICAg ICAgICAgICAgICAgICAgICAgICAgICAgICAgICAgICAgICAgICAgICAgICAgICAgICAgICANCiAgICAg ICAgICAgICAgICAgICAgICAgICAgICAgICAgICAgICAgICAgICAgICAgICAgICAgICAgICAgICAgICAg ICAgICAgICAgICAgICAgICAgICAgICAgICAgICAgIC AgICANCjw/bSRaY1jkxOZymnF7S9geWn5QAv7UPI8im1EwPMCiNTtdwwEcQawWOwBoBSTzOwzBGoz9XL waWH2FlJTdI1NpR3HiRBjfTX9WEREuEMQioEYfGWWvYLAhTqU6NYXtPEzqSJ9IvYOnBFadBZMqXXXcKb ZmJVBfPM1YOAIwU958szCeTi5DKg4TNwAdCX3ezf2M AyFwBBOgEvjJXmb7DMewDT1BhLGjlOWcNnLfJBTLApSzP3tim5KbSeYpMJVIZWcpXM7Zp8VgoQDpUTv+ Yu2EIF1al6OfIMilKwNyRX5hcu6TZQzYWjZvQ9IodLtiXRSdoqGhLQnndhQpgONBfPolzIOjF3BnxA51 nGVdPJHYCrWvaUX0DeT0RmMhSsFsIIT5XTzdWW8tZO ffOT0HHEP3XDwsASHfTOAcZ7pPCbGeLZvgXSXjzIxjWW7OIaJjU3FdelHeuNIuCBNkEKKYOs1+DQplbm KrNyeYMbF8QJDwq4DhCPa2DQ6YTIVyQDfuRE8YVIFieS7vIZkoKQ0OVgPgPwPjNKONWiAuE24usEThPP s2P8RuPbOgZFJuGgdbCXGlOLfkPcOwAHPmOwGeVBwk ID4+ID4+POneZU1CQHvmdyIvOMFlKf1SAHBpDGJbPX9gBRVcVIClX4E2lIkcRLQRJeZiC3fmdlqqAO2c GUZbQ020gDbousFnNOM2QBRfHp6LANIrGRH1GUAcxITpRnEuWFOUKHqfVI4EoFAbHOJ8iN2bXRmjCWNb CMSkA8xHFjZtfDrmEU05mAmuuqAxaTJeFHz+Pg0KZW 9ml4OyPJo7pcLbVXwfXFQ7CDsuQNFxBHCmPNEoNXZ7OEI3ETVISiNnCXMbCAInVRhoYPOgPOSctn6SAM JkAYG1JFQ6BQKmMMKmFGCsZUbvSOFwXHL4LPPmFTVjYGSoDT4ZLwZxCJHmVAJhGMrdYRCjYGMfuy9ZNU AwMDAwMzMwOSAwMDAwMCBuDQowMDAwMDAzNTEzIDAw QJYxJT2BHqUgOCOvIFElKTZyUOUvOEEusk7GJCObFCWiPVSqIdOjMQEcQZTvUJjuPLRtVTL9DjN0HQGy TMIdAC0GArJsDBLkLWD9RuWkLLKcLLVnlo1MKUGkQCAfBzN4ZSFvXLBqXTTpSXkqKOPzNXT5DbOiWCNz CCBwQR5YGsCrYRRzBWr3ZMypCQLvPSJnkc8BQMBxKK TpHuj3WUNlTIWwRMNvMVgwRQNrPEVuBiBmVYIpTBBsIS4MVvJmQBUpBmG5BSRoFNMxWDUzue5JSFXgCV XxYTd8SGCdFBRvQZDcFWzyWETjVFCtISM9OZUgJNHcXI1GUrTvWQHuIhUkWCSaDPEeGXKsvc6VIVBtRX XiIoC3WkEoDOHbQJAnIJrhUHDkOQKvXyetDPDtBEUg YW8RZjFcYPKsPwZ1DvqoFMSfDECrjl1YUPMtFSImKtVlAKIgFANhQIKbNLsxHNWmMLGlJbG6OAThVTAp RZ0CSjHqLCRaQnM6VgdhCDBnLSIlby4EVIZwSDL9RFA8PzFfAGAwPLCsOBrmXTPiVJPoAGJ5KOMcUNHj UT4HAlWqAUHhSPZoLyMnLEPvOYXnez5RXWLnZPO5Id O8CYQeLELgVOYoCXdzBYCqGYYwQAV2AUDxUHIkAY2KUpOwKHFnMMH1IWvoXYJlISGmhn4VAYYaPJY7Xb z5PDWiBKIvDCUdKOiuQOXlPGC5SNO9YIBwIGQbKQ7XLxJaRSIxGUK0WPQcYHXaMQYcoa0CEBRcQYS9Uv Y3MhChLBOtGKOlYKltXAPtHZS5IFS7YWQvWDJkGY7L OzVyBTCxKGIjPkNiKJZgVKWbxo4LoHTomGnxde6EMMfGMl4JoNvcMDP8YGgfAq7wnTUePrCjPRKTYk5Y xoOgGOQyFAMCGPogLNMrMLBsTVTmCmfbDYQ1RmsiAHU1KFUsWAR9NvYfBXkwEqNfCvE6TSFpWlUmVST9 JYDrOJV2GvpeDRF4WfqfRvElJ9HsZ3T+IH5zSBg+Lw3Sy1EcwuX5qgWmKIo3MhWgFw8OKSEJZ5RDZk== ID Date Data Source [id number] 04/26/2021 11:50:00 PM EDT [facility] Name Value Range Interpretation Code Description Data Arabella rce(s) Supporting Document(s) Glucose, Fingerstick 99 mg/dl 70-110 Normal (applies to non-num madiha results) [facility] The above 1 analytes were performed by [facility] [place] [address], ,[place] [address] ID Date Data Source [id number] 04/26/2021 06:50:00 PM EDT [facility] Name Value Range Interpretation Code Description Data Arabella rce(s) Supporting Document(s) Glucose, Fingerstick 114 mg/dl 70-110 Above high normal [facility] The above 1 analytes were performed by [facility] [place] [address], ,[place] [address] ID Date Data Source [id number] 04/26/2021 06:45:07 PM EDT [facility] Name Value Range Interpretation Code Description Data Arabella rce(s) Supporting Document(s) Progress Notes [facility] OENSEu8pCyYXRgWa31/DHExsEGUhy0IsMDpnORo4UMzkROJdX2IgOQV8eC9tMJJ3CRcZNnVvMnOqNDC7 lbm [file] [employer]/rSMPZo1LZti9fG5Pp9515V2ft3qXH//hepQjva3K78FZ62+vP7/3b6j/ncvmL4ozhsKsyJVe4A2+ [file] CG1oLHd+Xw0Jm9WgcmO1gdSzHFarJAE6Hu2MLWUHL5FHBh== ID Date Data Source [id number] 04/26/2021 01:21:29 PM EDT [facility] Name Value Range Interpretation Code Description Data Arabella rce(s) Supporting Document(s) Care Plan [facility] AFYDAx3sGgQLTbFk42/SSYoeTRTxh7CeRKqoNVk5BNseSOUdF8CiFDD2pH0tWNY0GMgEPrApFkIlTBH6 lbm [file] AgICAgICAgICAgICAgICAgICAgICAgICAgICAgICAgICAgICAgICAgICAgICAgICANCiAgICAgICAgIC AgICAgICAgICAgICAgICAgICAgICAgICAgICAgICAg ICAgICAgICAgICAgICAgICAgICAgICAgICAgICAgICAgICAgICAgICAgICAgICAgICAgICAgICAgICAN CiAgICAgICAgICAgICAgICAgICAgICAgICAgICAgICAgICAgICAgICAgICAgICAgICAgICAgICAgICAg ICAgICAgICAgICAgICAgICAgICAgICAgICAgICAgIC AgICAgICAgICANCiAgICAgICAgICAgICAgICAgICAgICAgICAgICAgICAgICAgICAgICAgICAgICAgIC AgICAgICAgICAgICAgICAgICAgICAgICAgICAgICAgICAgICAgICAgICAgICAgICAgICANCiAgICAgIC AgICAgICAgICAgICAgICAgICAgICAgICAgICAgICAg ICAgICAgICAgICAgICAgICAgICAgICAgICAgICAgICAgICAgICAgICAgICAgICAgICAgICAgICAgICAg ICANCiAgICAgICAgICAgICAgICAgICAgICAgICAgICAgICAgICAgICAgICAgICAgICAgICAgICAgICAg ICAgICAgICAgICAgICAgICAgICAgICAgICAgICAgIC AgICAgICAgICAgICANCiAgICAgICAgICAgICAgICAgICAgICAgICAgICAgICAgICAgICAgICAgICAgIC AgICAgICAgICAgICAgICAgICAgICAgICAgICAgICAgICAgICAgICAgICAgICAgICAgICAgICANCiAgIC AgICAgICAgICAgICAgICAgICAgICAgICAgICAgICAg ICAgICAgICAgICAgICAgICAgICAgICAgICAgICAgICAgICAgICAgICAgICAgICAgICAgICAgICAgICAg ICAgICANCiAgICAgICAgICAgICAgICAgICAgICAgICAgICAgICAgICAgICAgICAgICAgICAgICAgICAg ICAgICAgICAgICAgICAgICAgICAgICAgICAgICAgIC AgICAgICAgICAgICAgICANCiAgICAgICAgICAgICAgICAgICAgICAgICAgICAgICAgICAgICAgICAgIC AgICAgICAgICAgICAgICAgICAgICAgICAgICAgICAgICAgICAgICAgICAgICAgICAgICAgICAgICANCj w/oSBfT7hujFFmdcF2Z5lkWz6YIk5TRU9ht2EnKUJv XDzqxkLqSlhNDwRwGQVmZwxQHar6KIzjQQ6CnTQcU5IfE2HhRNhvFR7OMUJeNOMlfJPbWJGmKXWzTwR1 PSUuWAqcQO5CzQBzXTwgSWQtSABaTjXmHMEwWAUaSDLlVLVhIBOOXMMdAPSpUyIbBNDoSKEtZCzeHASR QPX5EZOqKzIaZUBtDJHbYaFtZVCPNTG2BZCcLeKpEk QsBLPxFmflWXMGHQBgEQWgZxXjJaQyMIUbQX7JXOQvC407eqCtDYWJTa4+DQplbmRvYmoNCjUzIDAgb2 CeDPc6IT2DLUYhZigcw0ZoOWWfNUBONAcqIX1SZSM5DWS8GCBqNn6RLGPnA941vbZyKV0BTw6MCeApSN 1fvn2VSXThKOAbOgjQCow2EPxjHG0QnGXfWGyVWBXh MWBwFC1tEfzuKM1xZOssWU1kK37lFOmfTh4LUWZ5ZJsqUAvtUjWhNTGcFUguVVWOAGnKDtXyM4Hwn8Uu IjF7GRFcByBrCUzlEWIaJwN5UA97xNomOR4JMVCcPWYwKQ75AWHxXQQdGu3BHr9HBmBaWN4vhy1BTZOv PHMiAuzBTou4MYyzSV2IuYKvY9PcqXBfv6jWGqAeI8 PSOLXiWTLiMg2JRAClVvMnEBJgIPtxBF2hZQOxSFLXpRyhtoZ5RU8UGE8aswZiCQ0AUmQxVd4dIs7TPb LcF0QqF0CtIUGkGBIBBKarAR0WDTwsPE6fKR4Sc9EJpJBnqW1qqz6FZSUxQHAqNgvxrs1LUnffN4D4zK uwECXcKRJyBLSTDRnxTL7ZQOMiJKM0JHB3IeFiQBZE ZjFoY91uGS5UE1Leu54xOrY7IMWdXiCoYBqyEK94cHwtwqUwzCSphWsfGF2PMt1+DQplbmRvYmoNCnhy SDKIVbYxNAABJsJmKECxZWIzCQYpAzF3NxFwJc0LOGHxVVSiCDZuDuYyGHHuFCCyGVhvSLKiAGL5UeF4 NTSuIEPvZL3FRkVoPGPvHEU9CqGyBFQaYYRizu8OMJ IbXHNmZZF5WmWxFVKwRHKqMXqsIZGeVKXlVxldAWVnUJGhZR4AQmJgYXSsRTL2CZDcAVGqTDMghh6LSD RbRGUlVnNbObXeHZZnMZVfYVtnIDReWOIpVGPeSYUgSAAbAG5UQnRcCLIsLTF2TZNrNKNwPIUhwz2HQN LuUWEqMDa3SzZuUENkICYiDGxwROGpIKJ4Dvl7GBOn BASmEL1SCvNuOHJbALccTMLtPGJpTCLono5ADWEzKLMxDNRlRcYhUZDoLNXnSGufMCBqWBR8SAM3KEMu CBAzUI1VLtBeIDOdOGZ9YPRyCGNwTWRfro6GVHZxRWNnZFQ1SvMtTDBaOATuYCjuQTSbCACiZTB3RYNn NUIvLF8CKcUzLGAiWKM0SLJrUTFxHTRtqu3PKJDsHC JsRFYvBQBnVKBjLDSiLVowVJAeTSD5FbJfHGMyKRBcCC9ENiDlUUFkFZD8PEZgMPYpPPWpfz6CTORcVS NhFXa5HgHlLGOnLKEeSXylUJIvFYV9GkPrJCAmIKTbOE8ZAsQeECQdNEu7TDdwSWMeQDRcpy7YPWIdKD KrMTDwHUPeAFVyETEeZCfwKAAzSFZ0PXNkDQMeZPKo CN7VCaHzPOSvIwJvQLquWHZkSXFcsx6ZKERkSPPcGKB6ZmHdSGDuGUEiMDikKGJoGCTvVUK2PDOhQCTj HX2TDdRwBCBdJnPaDySxZJBrYJKbzj7PHBSpQDAmVVHyWVRiDJAeYSKjVNpzYSIvDVS1TpJ5RTPgWRYs GC4QVtUyGEFwFrB3GtJzNGFuITCrdv9RWPCfQYGfRb AsEuZvIPFwGFFbTYtjFLPlVWO3YQx6RXWoFVKvJO6QHsAhAHXwYkc5JUjfFVOhYSHgwn0BNBTyCEFuZm r9RyPiSNFxOVPvHSvjBWKsRPQ4KAS1YKHhLUFoKE4EWhBcGMCcGiuiWkHpBYAnOZUvks9KIKAlNSGqFW VmXsNbGCLpQTUwESmhHUOxYTKsVqO9DLOeQXEsJH5W MaGmTABaCMI1PNQrIBErZKLngk9ZGVPuRZB5FyN6RBNmAYTpGHGhXNjdVEWaKEEiARLxNNYbYPBwIU3K DwPqEWPnHUD2PnSzMGSxUPHkpa6PJBJiWEW5DvWbZHAuDBUcZRCnUWsdTBAyLBXyQsY8KWUtHGJjSE5U VoFiTRJsZAV1VBVyZOJePSUjpv1XTGKrXPR8AWn5QM MsSIWxJCXbEYhdHFOgZIV9ZDL5LKMpGSBeFJ3BTqObCPCyEZMaTJDhVEVvSCVssu6WLQUfDHP5WRWmVA FzTFQySXEqKAkmBXBsBSN7XPxwUIWqBPYdGV5YQzNgXRLgXLibILIeDYWrGEEkan3HLQBlTEG9ZtL8WF McNIBzFTOeVKj3qaPtjASaVEn4QY7RS3LcjeBoTMYK Uw0Ut145WWQ1QWTmXp2EZ0rkCx7hCEKbFZPJOt1XUXc9IGA8JeXdERV8ZYDdBMOkFCx5FAJiQdtxQxAk NTkyZjg+ANwpVUX3WoOgSOD2CKV7IJH7WAJkUxB0G7WzGpL5HZNtSA4wAOROIq7+DQpzdGFydHhyZWYN ZcC3DkE9DDpcURGHFh0U ID Date Data Source [id number] 04/26/2021 01:20:39 PM EDT [facility] Name Value Range Interpretation Code Description Data Arabella rce(s) Supporting Document(s) Care Plan [facility] NEBAKb5kJmUGWwRd62/DBAkuFKBie8QnVCgmLZd9OPchTJZfB6HeWWC0jI0rMMB1PXyOFeCtHnGvVZO4 lbm [file] CHF9XDuoSMHVVj9Q ID Date Data Source [id number] 04/26/2021 12:43:10 PM EDT [facility] Name Value Range Interpretation Code Description Data Arabella rce(s) Supporting Document(s) Nursing Note [facility] VFACMl5yDgBYEiPg81/EKBxbELRmi4CeSJbxBZx5TItoZXEqW5LrZOZ5dH9eIOC6FVlNBmLaWbFvXIV9 lbm [file] N6WWBbWNU+RR6fYDo+Mn7Zd1AtdkR4ohAjDPgmNTWwQT3JKLQNU3HDZh== ID Date Data Source [id number] 04/26/2021 12:06:00 PM EDT [facility] Name Value Range Interpretation Code Description Data Arabella rce(s) Supporting Document(s) Glucose, Fingerstick 107 mg/dl 70-110 Normal (applies to non-num madiha results) [facility] The above 1 analytes were performed by [facility] [place] [address] [facility], ,[place] [address] ID Date Data Source [id number] 04/26/2021 04:59:00 AM EDT [facility] Name Value Range Interpretation Code Description Data Arabella rce(s) Supporting Document(s) Glucose, Fingerstick 84 mg/dl 70-110 Normal (applies to non-num madiha results) [facility] The above 1 analytes were performed by [facility] [place] [address] [facility], ,[place] [address] ID Date Data Source [id number] 04/26/2021 05:20:00 AM EDT [facility] Name Value Range Interpretation Code Description Data Arabella rce(s) Supporting Document(s) AST 15 IU/L 15-37 Normal (applies to non-numeric resul ts) [facility] Sulfasalazine and sulfapyridine have the potential to falsely depressAspartate Aminotransferase results. Baseline values before medication administration are recommended. ALT 19 IU/L 13-56 Normal (applies to non-numeric resul ts) [facility] Sulfasalazine and sulfapyridine have the potential to falsely depressAlanine Aminotransferase results. Baseline values before medication administration are recommended. Alkaline Phosphatase 53 mIU/ml 50-136 Normal (applies to non-num madiha results) [facility] Total Bilirubin 0.70 mg/dl 0.20-1.00 Normal (applies to non-numeric results) [facility] Blood Urea Nitrogen 11 mg/dl 7-18 Normal (applies to non-nume ny results) [facility] Creatinine 0.76 mg/dl 0.51-0.95 Normal (applies to non-numeric resul ts) [facility] N-Acetylcysteine (NAC) and Metamizole em ve the potential to falselydepress Creatinine results. Baseline values before medication adminstration are recommended. Patients undergoing treatment with phenindione will have falselydepressed results. Patients on phenindione therapy should be tested with an alternativeCREA method.Toxic levels of acetaminophen may lead to falsely depressed results forpatient samples. Glomerular Filtration Rate 85.00 mL/min/1.73m2 [facility] GFR Reference Ranges:Normal Function or Mild [...] of Health and the [employer]. The [place] method used in calculating this result is traceable to IDMS standards. Glucose 81 mg/dl 70-110 Normal (applies to non-numeric resul ts) [facility] Sulfasalazine has the potential to false ly depress Glucose results. Sulfapyridine has the potential to falsely elevate Glucose results. Baseline values before medication administration are recommended. Calcium 7.8 mg/dl 8.5-10.1 Below low normal [facility] Total Protein 6.4 g/dl 6.4-8.2 Normal (applies to non-numeric re sults) [facility] Albumin 2.9 g/dl 3.4-5.0 Below low normal [facility] Sodium 139 mEq/L 136-145 Normal (applies to non-numeric resul ts) [facility] Potassium 4.0 mEq/L 3.5-5.1 Normal (applies to non-numeric resul ts) [facility] Chloride 113.0 mEq/L 98.0-107.0 Above high normal [facility] Anion Gap 9.3 [facility] Carbon Dioxide 20.7 mMol/L 21.0-32.0 Below low normal [facility] The above 16 analytes were performed by [facility] [id number] [facility], ,[place] [address] ID Date Data Source [id number] 04/26/2021 05:20:00 AM EDT [facility] Name Value Range Interpretation Code Description Data Arabella rce(s) Supporting Document(s) Magnesium 2.1 mg/dl 1.6-2.6 Normal (applies to non-numeric resul ts) [facility] The above 1 analytes were performed by [facility] [place] [id number] [facility], ,[place] [address] ID Date Data Source [id number] 04/26/2021 04:54:00 AM EDT [facility] Name Value Range Interpretation Code Description Data Arabella rce(s) Supporting Document(s) WBC 7.39 x1000/ul 4.80-10.00 Normal (applies to non-numeric re sults) [facility] RBC 3.51 x1Mil/ul 4.20-5.40 Below low normal [facility] Hemoglobin 9.3 g/dl 12.0-16.0 Below low normal [facility] Hematocrit 30.1 % 37.0-47.0 Below low normal [facility] MCV 85.8 fL 81.0-99.0 Normal (applies to non-numeric resul ts) [facility] MCH 26.5 pg 27.0-31.0 Below low normal [facility] MCHC 30.9 g/dl 32.2-37.0 Below low normal [facility] RDW 15.4 % 11.5-14.5 Above high normal [facility] Platelet Count 256 x1000/ul 130-400 Normal (applies to non-numeric results) [facility] MPV 10.5 fL 9.4-12.4 Normal (applies to non-numeric resul ts) [facility] Neutrophils 48.7 % 40.0-74.0 Normal (applies to non-numeric resu lts) [facility] Lymphocytes 41.1 % 19.0-48.0 Normal (applies to non-numeric resu lts) [facility] Monocytes 7.3 % 3.4-9.0 Normal (applies to non-numeric resul ts) [facility] Eosinophils 1.6 % 0.0-7.0 Normal (applies to non-numeric resu lts) [facility] Basophils 0.9 % 0.0-2.0 Normal (applies to non-numeric resul ts) [facility] Immature Granulocytes 0.4 % 0.0-0.5 Normal (applies to non-nu meric results) [facility] Nucleated RBCs 0.00 % 0.00-0.20 Normal (applies to non-numeric r esults) [facility] Abs. Neutrophils 3.59 x1000/ul 1.92-8.31 Normal (applies to non-numeric results) [facility] Abs. Lymphocyte 3.04 x1000/ul 1.20-3.70 Normal (applies to non-n umeric results) [facility] Abs. Monocytes 0.54 x1000/ul 0.14-0.97 Normal (applies to non-nu meric results) [facility] Abs. Eosinophils 0.12 x1000/ul 0.00-0.76 Normal (applie s to non-numeric results) [facility] Abs. Basophils 0.07 x1000/ul 0.00-0.22 Normal (applies to non-n umeric results) [facility] Abs. Immature Gran. 0.03 x1000/ul 0.00-0.02 Above high normal [facility] Abs. Nucleated RBCs 0.00 x1000/ul 0.00-0.02 Normal (appl ies to non-numeric results) [facility] The above 24 analytes were performed by [facility] [id number], ,[place] [address] ID Date Data Source [id number] 04/26/2021 02:31:41 AM EDT [facility] Name Value Range Interpretation Code Description Data Arabella rce(s) Supporting Document(s) Care Plan [facility] [id number] [file] [id number] ID Date Data Source [id number] 04/25/2021 11:21:00 PM EDT [facility] Name Value Range Interpretation Code Description Data Arabella rce(s) Supporting Document(s) Glucose, Fingerstick 84 mg/dl 70-110 Normal (applies to non-num madiha results) [facility] Health The above 1 analytes were performed by [facility] [place] [address], ,[place] [address] ID Date Data Source [id number] 04/25/2021 11:09:15 PM EDT [facility] Name Value Range Interpretation Code Description Data Arabella rce(s) Supporting Document(s) Nursing Note [facility] TBCVDa5fXnSOYpUu35/LQZeeWOSvd9GzWPyhLNy9TKcrXXNbQ2AwEIX1gQ5aSLW2NHkPZsUvJoBsRYK9 lbm XmSskADjNdFHHqFxsTHvGuGKgmTxzueUEgMC5ByRW2SFNrH98zIYPoILJqX9LuADJtXlg+Lq6GVFIgbN MwHZ8AWxpO0TiyouxJRP1w7C+KyrOo5R3mrOcbJDNjBJRLGAYov85xnIHB8Xd0Q9AfeA8yrCDNaDobXM 9jCMPqLJKLIZ9yaqUVNfU/+6dnJvUCAJ2qHlvj3XEB 294ZcYjomwUmCbPNNKOsMN5zggmjxiJiAwLmEF/XMSzc0mUlACdIaTDndFjFgB8rDUi2HehEcfFeDIRU a8L2JsMDLrwcJipCxrs19oZYGMoqTw/fJODphcXyqYRTkAoKCtZR0BK69lGff0UBy7ZARAPseiMwkfFM PMD7XyzeI1ispKkD9iC6fc18Nxp9EZI4o1IRPMjHFD RI8pF2e0GI6a3qsYrU3rIZ+gyrKmAkvwGMBx4kMjaSYQvEZ9vrReYIhIpArLIaMhxIBwqRvyDQmRhlOO NgdMjuO8+Maddy/+tiFfTh/Zm5OqOWKv3ocdigBcJEZEhsbf3E9gZlFvgdNOJ+dt5Hg7eQObMU6Vdk3EUd [file] N9FNG7rWWxPj5LVeErMOBUQkPkNP7AACe= ID Date Data Source [id number] 04/25/2021 07:08:57 PM EDT [facility] Name Value Range Interpretation Code Description Data Arabella rce(s) Supporting Document(s) H&P [facility] MDLLIf3qXvYESuJk49/REOhmWQTxb6RzFZcmIZn4PKxeQQTuZ9GmQIL0vF6tUZL5YUiBToNaLzVwIMA3 lbm [file] MjEgMCBSDQogICAgICAvRjIgMjQgMCBSDQogICAgIC DyApNdZiswRRDVZBxsGTWlOLDoLgHkReRtRUVDESldSRNhFRNpStMjQoBxXWGCLk5HQxJiWNKmYB0xdz ZllWB6UAL+Kb4WNBGeBC3PqFDKC9WxqZRsJBzmZ7TFHC0IMFG8VQ7HfYOwCP9JyPCNW6IvbMStFr7gAM Pki6HkAp2rR3YQIXMVJTAlDYpwOEswEITrDTu9C4W3 VDTkD8QEP391yBFdiLe0Nc3lD9HGFKgBCsXvOVmbHJvkYMDnAAi3L5Q5FKLaV8MAH3OeRkTyntPbW0O+ XpHxNOLKHV7LPEHPWOg3N9J5jKZyX0F7mUlJbDJ7AN8LQU8BqRUhuYKzv73+HyNOIvGuGJLjQ3SKZOHA EsGkBPbpSZgpHSDbYHh1S8G8GSCdP0JXF3poF0w0HT 4+CvRFCsSqIUHiAw7VSmSkXx9RMvBbKO3uua0BJkTnBUHtShrUVxd7I1umzpg7iMMbIwX1D1K2ZqQ5fE HhRC6XR6A8hOUqLUS8BMXmjYU+Yp9Kd5PkMBHhWNi5P4dpHXOmDZZoXwNgzS94Q++2umhqkFM3X9j9HK OUaNNvfFhBviSzA9sJVDE4i6D8LOv/Ue4RFHN0yKk7 zZFjXGZpBYi1sU1chNs9HkTtWF17FNAcRUoiyL9aPpq7O7Smt5VqLn0mOq0xqNAsFq9SFpTbZWC1bwCv OtUYRhP1fBhtqlekEJM3O6e5aYO5Cp52x7kytoMzf1CuCpO4CBxnMQBgGmKrxtWoPZQ8pwTdkX3pvfBc Kj3XSDIcKTbgyjHeAiJCCa7MLeOzQK69LzonmX2teL E+DQogICAgICAgICAgICAgICAgICAgICAgICAgICAgICAgICAgICAgICAgICAgICAgICAgICAgICAgIC AgICAgICAgICAgICAgICAgICAgICAgICAgICAgICAgICAgICAgICAgICAgDQogICAgICAgICAgICAgIC AgICAgICAgICAgICAgICAgICAgICAgICAgICAgICAg ICAgICAgICAgICAgICAgICAgICAgICAgICAgICAgICAgICAgICAgICAgICAgICAgICAgICAgDQogICAg ICAgICAgICAgICAgICAgICAgICAgICAgICAgICAgICAgICAgICAgICAgICAgICAgICAgICAgICAgICAg ICAgICAgICAgICAgICAgICAgICAgICAgICAgICAgIC AgICAgDQogICAgICAgICAgICAgICAgICAgICAgICAgICAgICAgICAgICAgICAgICAgICAgICAgICAgIC AgICAgICAgICAgICAgICAgICAgICAgICAgICAgICAgICAgICAgICAgICAgICAgDQogICAgICAgICAgIC AgICAgICAgICAgICAgICAgICAgICAgICAgICAgICAg ICAgICAgICAgICAgICAgICAgICAgICAgICAgICAgICAgICAgICAgICAgICAgICAgICAgICAgICAgDQog ICAgICAgICAgICAgICAgICAgICAgICAgICAgICAgICAgICAgICAgICAgICAgICAgICAgICAgICAgICAg ICAgICAgICAgICAgICAgICAgICAgICAgICAgICAgIC AgICAgICAgDQogICAgICAgICAgICAgICAgICAgICAgICAgICAgICAgICAgICAgICAgICAgICAgICAgIC AgICAgICAgICAgICAgICAgICAgICAgICAgICAgICAgICAgICAgICAgICAgICAgICAgDQogICAgICAgIC AgICAgICAgICAgICAgICAgICAgICAgICAgICAgICAg ICAgICAgICAgICAgICAgICAgICAgICAgICAgICAgICAgICAgICAgICAgICAgICAgICAgICAgICAgICAg DQogICAgICAgICAgICAgICAgICAgICAgICAgICAgICAgICAgICAgICAgICAgICAgICAgICAgICAgICAg ICAgICAgICAgICAgICAgICAgICAgICAgICAgICAgIC AgICAgICAgICAgDQogICAgICAgICAgICAgICAgICAgICAgICAgICAgICAgICAgICAgICAgICAgICAgIC ZfQERyVLQxYGAaZGYoFLOwFNXlJHRvOADcLIDxTCFtKDYuBTZjSMGkQAHsJTBqLTIrCYYkKQs8E8ckFC IsAVTpLW5uYEi9Cq1+RKeVJoRcZIL7xsZueN4EOK9c u7QjARsiZOApq3FbCBf1XK0RMESpBEzyKU0WXJrber1XMFCxPAYijEWQr2ryRoEoKEF1YSSiFzerCF5S ZGLoZ3fjbyJbCVIbOERVMCysYHKEKIjtROUUIXAwODQkHlRmTcTlIRPeJJEjEISNHS9IEeGaH9BsnA40 IDYNCj4+FCmsmsVnYhpQWjK2DSKsx9EuJVj8TT4FMQ SpEoqqk0XiJaeaHVOLQJffMG2ORLE6VII7CKGoKv3TEVDkZ654zoKkFZ1SMm3XJjFuSC1qku8BSnsrJT CyJysTLtl6OGvtXK2DfLVfRJiUUiXdZhkjRTUtfBI6JNV4GLS2YDRLKZBbrND8MzO3PyIyKyCjJSP2EG BdQL7qXMtjXK8MWIL4RPzkLTHkLRIdF2aBRdUkYEqo WIQqtKysHV5XNpWuO3KaclVywANcTyFmFTWUQg9+BSirmbFrAznMKoC7JSQrj9GcCAy2HV0ZQHIpHNbn GD4OGKCilG6kBJbaYO1TLdXdURMjQFGQVpCnP70siEMzJVu6T8OkWaQaENYzJxbvYOFiRDvxOnRqHHKr WyBdDQogID4+ID4+DYoiOU0CFEhthuLcYCKfLd3VKJ RzPNZnZP2pZERvXNMeE7W9sFfcDAJENyHhB7xiehavJR0vEWSjK346dIwwgcPoUVJ4YSHwCq6IYRDpRL C9NABrxZRcAsYnUJOBBKzwUY2TeYTmPUP5wX0bPFceNMXmQWZyU1tSUjMyxBvyRA70hJpdohDslAUxVI o+Zw9JZI9bg4JyHVc7qfNdVMtsNPV8BMmtHFDsEIRx OMSsWFQ9QCC8NAPNVaRiXKQyOIZnADpyUDLyAZOsci0XXZCnZWPoZoJ1ZWUzCGTuKAMjPIghEBKpJOG6 ZLVoQECcVVIuPD6ILaLbIIQsBYAlVSdyKPCrFBFjmo5MAFOnIMSaAhG6NrGiYXDaJJCqWVdxJJMyQJSh AyQrEMHdUFPzTM5YDsTpTOOkMAHzHEdxDLWuQBXtiq 0SFQDdHINpJrG6AiFhNRHsRNMiIRdmYYJdSJP6GDN4DLJkDAIdQD3JPpDuUDGbKXyiDyFtMYYvIMFdwj 4NOXEhDOHnHEQ9XNRwRXRuWLKbZCfoAEAjROInEQP0OZMaOYWwGU6GOqKeLWQvMSXeXeSzYTMwDJJnbf 6YQDQvJBQwWBT6HRZdZWHpDRPcITmyOZKvZHM9TeU9 ITRxILEzXN9QMtUeCSLoTOC3XeFvPHBpZGYroe2OVWTtJMKtOQk3QLVwJWXuSXJdWGbfJCLtZSZ6IJub JCGjWDHhTP2UCaWoOZPaFCUuRORaUBLbDNFtvh7MLBVgPOQkGiM3LMLvZULaWCVpLDlzQFYnYOK3FEZ5 RRRgQGAiMW9NQvTeYSFpOFp8QsAqADZvRTBsef7LTO DpIVRpAUQ0KVGbGRZaZWBpEFviQXKyJRB4Mhq3TLVuACTdNV0WVoThLJWbFSv3YcQvAAZaHKGwki2QGL TfHCVdLZqlVdMrZIYhTDBjMGftVGIfBMQvAMVxPVUzJTUzAF8IGdShORXfMyVbEfImITQyMGVato2RNJ SyAEAzEXU1YXBfCQYvHBBbIPbpMPBjPSSgNAf1ARRo GUGmML7YSmJlNXVzJwL8DqUvIZKyTDPois9PBSSqOSPpChNoBiOiAXQyHAUqOQwlKZLoETYoOAH8COBs PBQlEM3UJiIoYEZyDfGfHxHhRZMqSFEkix3OWOUlDDBbPpZiBPRpXFVtUWFsFFmgNLZzLDE2KNxeTUBw JHJtFM2YDfBkFIUgAsLeIPLnAOAoHEJivo5MIJGbSQ ByBBL9NVXtOYYcDDUpEKo9elFihHYpCBl3OO1IS9UyisYjUjuWVp6Rr277IDI6TGFaCr3FY8kiWk8zRN HlMDXQDy1QTOq0DIQbEYGmZ7JlRpF5LUupWOOlRZfjLrYkUITbHYKxYTW+TGc0XWBwUGJ6LmMiZAyzG7 T5OLQhLCGrARMjQgQcXSUjMR8bGCULYx1+IXayhJDurRghHIFVErP2DHIbVOmvPPLLXa9H ID Date Data Source [id number] 04/25/2021 06:53:16 PM EDT [facility] Name Value Range Interpretation Code Description Data Arabella rce(s) Supporting Document(s) Care Plan [facility] CEZAAv8hAcDHIsZi09/RJGtdXXSmh8KzYOneKLt2OFlrDCTfD8VpZEU0nO0mFUV7DZoCUpYjRaIwTYE5 lbm [file] ICAgICAgICAgICAgICAgICAgICAgICAgICAgICAgIC AgICAgICAgICAgICAgICAgICAgICAgICAgICAgICAgICANCiAgICAgICAgICAgICAgICAgICAgICAgIC AgICAgICAgICAgICAgICAgICAgICAgICAgICAgICAgICAgICAgICAgICAgICAgICAgICAgICAgICAgIC AgICAgICAgICAgICAgICANCiAgICAgICAgICAgICAg ICAgICAgICAgICAgICAgICAgICAgICAgICAgICAgICAgICAgICAgICAgICAgICAgICAgICAgICAgICAg ICAgICAgICAgICAgICAgICAgICAgICAgICANCiAgICAgICAgICAgICAgICAgICAgICAgICAgICAgICAg ICAgICAgICAgICAgICAgICAgICAgICAgICAgICAgIC AgICAgICAgICAgICAgICAgICAgICAgICAgICAgICAgICAgICANCiAgICAgICAgICAgICAgICAgICAgIC AgICAgICAgICAgICAgICAgICAgICAgICAgICAgICAgICAgICAgICAgICAgICAgICAgICAgICAgICAgIC AgICAgICAgICAgICAgICAgICANCiAgICAgICAgICAg ICAgICAgICAgICAgICAgICAgICAgICAgICAgICAgICAgICAgICAgICAgICAgICAgICAgICAgICAgICAg ICAgICAgICAgICAgICAgICAgICAgICAgICAgICANCiAgICAgICAgICAgICAgICAgICAgICAgICAgICAg ICAgICAgICAgICAgICAgICAgICAgICAgICAgICAgIC AgICAgICAgICAgICAgICAgICAgICAgICAgICAgICAgICAgICAgICANCiAgICAgICAgICAgICAgICAgIC AgICAgICAgICAgICAgICAgICAgICAgICAgICAgICAgICAgICAgICAgICAgICAgICAgICAgICAgICAgIC AgICAgICAgICAgICAgICAgICAgICANCiAgICAgICAg ICAgICAgICAgICAgICAgICAgICAgICAgICAgICAgICAgICAgICAgICAgICAgICAgICAgICAgICAgICAg ICAgICAgICAgICAgICAgICAgICAgICAgICAgICAgICANCiAgICAgICAgICAgICAgICAgICAgICAgICAg ICAgICAgICAgICAgICAgICAgICAgICAgICAgICAgIC AgICAgICAgICAgICAgICAgICAgICAgICAgICAgICAgICAgICAgICAgICANCjw/uPSgM8kzwUCjmeZ7E9 rxZh8HYk7VWJ1fb9HbBEFhSEcqmxBjOgxSVxHoWTEzWphKFxd8KPhrUT1DkHBjB4PsW7DaSZtrBA5IFG TuFMLyqHTwZRTiULIxShA1APTiFZzsKZ4YbMJyPJje CQLqIFFkCvWpVSPjNKCtTSJxXRVmJMSBSF4YCwAlV6HnzL94ZIYXSa8+LZmimtOnXqpMBmVlWRTic7Hi OEr5IT6ZUBSfBsocf1SbWaVgTLVZBFfzTV3OEVC8TTMlIVDsAz5QCWKsO709ddSoVZ1OPv2MIiIlWP5b jy3JXxInHJJkGroTRbh3DYxtPB5OhHRzLXsCBLEpTI VnDE4nMsioROV6s65fIG7yzBqvXh6kAWXsOJ4oIm6rGNVrZML0YsXqBACRAU7AZGHyCTFtzZNiIVTqHY FFKG8WEVoaYUY5BhqwfpRlvUEoGLexVS2VTGOgkqUcBxMnHVEJGVk+Jb4ASS9jt1BwAQflMdAkWC4zky 2YGUqNEtCcG4A1oPXmE1P5GAjhDn4GECDoQMCmIrhi UWKZOPqaAX7ALH0qahR4DI2QxDDnJZGaASJdtKBuGBp6K43ucRGxJGhbZA6YYKB+Mau+Tw6HPQOnEMUg LVLuEeDeDGVQUxPwT2QwY7LZz7XqA0ZuXW09cPessqSjQRtgSE1DVJ6vOCIxWWCCQJ6RoOBhiQ0acgQc SYPkRDLZGqIjR36cjBIhOASaRNQzLPPkLl7MULYeB0 AkigVwzGphxiRhFPTsRTOYDF3JUWylalCddASljJqhUN13wOwzIJ7GMw0SJuMsDX6yyt3XbZZfLl7BGR QsYW7MBLOlBOGvSLYxNLQ1VGOpGcRrJRupWRDoMDAhNSS3KEMtVFVsJD5AVmAiLBOiOfS5DzZyLBWgDA Klzg1DUMUsTTBrYTPjFfPyFBPyUCFxZBnnUEPyJECq DCT4UCPhUQFqOP5HAkMvJMNcYVZyODBjBSVhNBYwel0TXSTmXCWhBbH0JzRwAAZyGAZbZTqcXCChOLT8 CrB2LUHkHSBqPS2XNvEcUYTcGTE6THLjPTKaUHUklo2MCAWuULDxXdQ7LVZgRPDeYUQoUUcpRPLvHTN4 YEb3BETaBCOnJU5YMwXcQIToHZy2EmMcHQUvGKQlxk 6EMIVhHZWlYOX2ZOGqFVRkJZUrKVnkBQDnEPB9DVF0TLGmXNEdDC9SHzPlKHJeNJjlKtNmYKOmDUZpsc 6KNURjRAQbVUHzENIoSQUhBSWcNIluTRHcHDTcBlh1HOVdEVPvNX4PBwDtRWGoGOR2IsScPPMlQQPzlx 4LEIDvPUDfIMx0GGUcLLJbRQGkNGhiKLVlYEZtGTW7 RBPxESGbXX9GDhLcVVRtEeW9PwKxRLQqEABdif1LUVHySFBzXyNcHdMmVPFzPRHzVZusFNOrETIcVAwx ZROwPHGtXT6MAnBhERXzWoOvZTunZAXhNIJbpy1IFPMoQHAjQNu8NHLhTUXpDIOpNQvpEBJiSEU6EXM5 DACmXDIsED7MFeOaMFGxAbQkSKHsHCWxGAXtes8NBO XqTWZhFyD2XzRuPMCzJKKoUFwqIICiQZZ0JNccLBRdWDKxYZ6EBmEfOEVoOnF6HDFkWYRfYIQaqi5NSQ FeZRQnQwV5ExEyJFYiUCDnYEiiTAAeZUU9RNL1OQLyHVMhLL8ZLvQuTFZfRkg2VCNkHTWjUNJffn8MHD HcMDLgLNb8YZGhHMUuYWGzIFv8zyCiiZUhAXc4RF3W X0ZszrLgXnTVWz2Px471SOWsYDHcNo4BZ4vwJg8gIQWhSDUNYf9HOTv7OCL6IsEyCAL4VFZ0NkWyDPa5 HYHjIqa8AXXlSKM6Ddi+ENu6ZGYoHSBzYxM1EGslCMJeRSw3CWXtPqgrIETgBBgnMP2xOICGXd3+DQpz gPDvfAqbKEBWPqO7EFo4UIalCZMOZz7Y ID Date Data Source [id number] 04/25/2021 05:55:38 PM EDT [facility] Name Value Range Interpretation Code Description Data Arabella rce(s) Supporting Document(s) Consults [facility] MKBGUz6rMyZBEgWe55/NOJawFJBhd4RhBKloNUf4PDshLYBrG9VyRDG8iD3uSRF2EVbBCxWmCeGnMMY4 lbm [file] CARLOS A+rKfMpvZjKzX0eXbVEq0ZmfZFNb8ymqXyWtx2orG [file] z7Wtm1EvZvHaWiFp8oSBVKKn4+ILsmyLTlmQtpVGPPHzLkUBGzRGcrSBTQBr5D ID Date Data Source [id number] 04/25/2021 05:13:00 PM EDT [facility] Name Value Range Interpretation Code Description Data Arabella rce(s) Supporting Document(s) Urine Color Yellow Light-Yellow,Yellow Normal (applies to no n-numeric results) [facility] Urine Appearance CLEAR CLEAR Normal (applies to non-numeric results) [facility] Urine Specific [place] 1.034 1.015-1.025 Above high normal [facility] Urine pH 6.5 5.0-7.0 Normal (applies to non-numeric resul ts) [facility] Urine Protein TR NEG Abnormal (applies to non-numeric results) [facility] Urine Glucose NEG NEG Normal (applies to non-numeric re sults) [facility] Urine Ketone NEG NEG Normal (applies to non-numeric res ults) [facility] Urine Bilirubin NEG NEG Normal (applies to non-numeric results) [facility] Urine Blood NEG NEG Normal (applies to non-numeric resu lts) [facility] Urine Urobilinogen NORM <0.2,1.0,<2.0,0.2 Abnormal (a pplies to non-numeric results) [facility] Urine Leukocyte Esterase NEG NEG Normal (applies to non -numeric results) [facility] Urine Nitrite NEG NEG Normal (applies to non-numeric re sults) [facility] The above 12 analytes were performed by [facility] [address], ,[place] [address] ID Date Data Source [id number] 04/25/2021 05:04:00 PM EDT [facility] Name Value Range Interpretation Code Description Data Arabella rce(s) Supporting Document(s) T3 65.42 ng/dl 60.00-181.00 Normal (applies to non-numeric re sults) [facility] The above 1 analytes were performed by [facility] [place] [address], ,[place] [address] ID Date Data Source [id number] 04/25/2021 04:45:00 PM EDT [facility] Name Value Range Interpretation Code Description Data Arabella rce(s) Supporting Document(s) PT, No Coag Tx/Coag Tx Unk 11.7 Seconds 10.2-12.9 Judith l (applies to non-numeric results) [facility] Attention: Effeciive 01/03/2020 The nor mal [...] 0.9-1.1 Nor mal (applies to non-numeric results) [facility] Suggested therapeutic INR ranges for ora l anticoagulant therapy: Indication:INRPrevention and treatment of DVT and PE2.0 - 3.0Prevention of systemic embolism with atrial fib., acute MS and 2.0 -3.0 tissue prosthetic heart valves.Prevention of systemic embolism in patients with mechanical heart2.5 -3.5 valves.NOTE: The INR is only valid for patients on stable oral anticoagulanttherapy. The above 2 analytes were performed by [facility] [address] [facility] [address], ,[place] [address] ID Date Data Source [id number] 04/25/2021 04:45:00 PM EDT [facility] Name Value Range Interpretation Code Description Data Arabella rce(s) Supporting Document(s) PTT, No Coag Tx/Coag Tx Unk 30.1 Seconds 25.1-36.5 Norm al (applies to non- numeric results) [facility] Attention: Effective 01/03/2020Please no te the change in reference range for PTT (No Coag Tx/Coag TxUnk) ResultsPrevious Reference Range: 24.9-30.6 secondsNew Reference Range: 25.1-36.5 secondsDiscrepant results may occur due to anticoagulant effects such asheparin, direct thrombin inhibitors; argatroban (Acova), bivalirudin(Angiomax) or dabigatran (Pradaxa) or direct factor Xa inhibitors;rivaroxaban (Xarelto), apixaban (Eliquis) and edoxaban (Savaysa).The above 1 analytes were performed by [facility] [address] [facility] [address], ,[place] [address] ID Date Data Source [id number] 04/25/2021 04:33:00 PM EDT [facility] Name Value Range Interpretation Code Description Data Arabella rce(s) Supporting Document(s) WBC 6.78 x1000/ul 4.80-10.00 Normal (applies to non-numeric re sults) [facility] RBC 3.60 x1Mil/ul 4.20-5.40 Below low normal [facility] Hemoglobin 9.3 g/dl 12.0-16.0 Below low normal [facility] Hematocrit 30.3 % 37.0-47.0 Below low normal [facility] MCV 84.2 fL 81.0-99.0 Normal (applies to non-numeric resul ts) [facility] MCH 25.8 pg 27.0-31.0 Below low normal [facility] MCHC 30.7 g/dl 32.2-37.0 Below low normal [facility] RDW 15.3 % 11.5-14.5 Above high normal [facility] Platelet Count 266 x1000/ul 130-400 Normal (applies to non-numeric results) [facility] MPV 10.1 fL 9.4-12.4 Normal (applies to non-numeric resul ts) [facility] Neutrophils 43.7 % 40.0-74.0 Normal (applies to non-numeric resu lts) [facility] Lymphocytes 44.7 % 19.0-48.0 Normal (applies to non-numeric resu lts) [facility] Monocytes 9.1 % 3.4-9.0 Above high normal [facility] Eosinophils 1.3 % 0.0-7.0 Normal (applies to non-numeric resu lts) [facility] Basophils 0.9 % 0.0-2.0 Normal (applies to non-numeric resul ts) [facility] Immature Granulocytes 0.3 % 0.0-0.5 Normal (applies to non-nu meric results) [facility] Nucleated RBCs 0.00 % 0.00-0.20 Normal (applies to non-numeric r esults) [facility] Abs. Neutrophils 2.96 x1000/ul 1.92-8.31 Normal (applies to non-numeric results) [facility] Abs. Lymphocyte 3.03 x1000/ul 1.20-3.70 Normal (applies to non-n umeric results) [facility] Abs. Monocytes 0.62 x1000/ul 0.14-0.97 Normal (applies to non-nu meric results) [facility] Abs. Eosinophils 0.09 x1000/ul 0.00-0.76 Normal (applie s to non-numeric results) [facility] Abs. Basophils 0.06 x1000/ul 0.00-0.22 Normal (applies to non-n umeric results) [facility] Abs. Immature Gran. 0.02 x1000/ul 0.00-0.02 Normal (appl ies to non-numeric results) [facility] Abs. Nucleated RBCs 0.00 x1000/ul 0.00-0.02 Normal (appl ies to non-numeric results) [facility] The above 24 analytes were performed by [facility] [address], ,[place] [address] ID Date Data Source [id number] 04/25/2021 05:24:00 PM EDT [facility] Name Value Range Interpretation Code Description Data Arabella rce(s) Supporting Document(s) Lipase 162 IU/L 73-393 Normal (applies to non-numeric resul ts) [facility] The above 1 analytes were performed by [facility] [place] [address] [facility], ,[place] [address] ID Date Data Source [id number] 04/25/2021 05:24:00 PM EDT [facility] Name Value Range Interpretation Code Description Data Arabella rce(s) Supporting Document(s) Magnesium 2.3 mg/dl 1.6-2.6 Normal (applies to non-numeric resul ts) [facility] The above 1 analytes were performed by [facility] [place] [address] [facility], ,[place] [address] ID Date Data Source [id number] 04/25/2021 05:24:00 PM EDT [facility] Name Value Range Interpretation Code Description Data Arabella rce(s) Supporting Document(s) AST 11 IU/L 15-37 Below low normal [facility] Sulfasalazine and sulfapyridine have the potential to falsely depressAspartate Aminotransferase results. Baseline values before medication administration are recommended. ALT 17 IU/L 13-56 Normal (applies to non-numeric resul ts) [facility] Sulfasalazine and sulfapyridine have the potential to falsely depressAlanine Aminotransferase results. Baseline values before medication administration are recommended. Alkaline Phosphatase 56 mIU/ml 50-136 Normal (applies to non-num madiha results) [facility] Total Bilirubin 0.80 mg/dl 0.20-1.00 Normal (applies to non-numeric results) [facility] Blood Urea Nitrogen 12 mg/dl 7-18 Normal (applies to non-nume ny results) [facility] Creatinine 0.69 mg/dl 0.51-0.95 Normal (applies to non-numeric resul ts) [facility] N-Acetylcysteine (NAC) and Metamizole em ve the potential to falselydepress Creatinine results. Baseline values before medication adminstration are recommended. Patients undergoing treatment with phenindione will have falselydepressed results. Patients on phenindione therapy should be tested with an alternativeCREA method.Toxic levels of acetaminophen may lead to falsely depressed results forpatient samples. Glomerular Filtration Rate >90.00 mL/min/1.73m2 [facility] GFR Reference Ranges:Normal Function or Mild [...] of Health and the National KidneyFoundation. The [place] method used in calculating this result is traceable to IDPR standards. Glucose 81 mg/dl 70-110 Normal (applies to non-numeric resul ts) [facility] Sulfasalazine has the potential to false ly depress Glucose results. Sulfapyridine has the potential to falsely elevate Glucose results. Baseline values before medication administration are recommended. Calcium 7.8 mg/dl 8.5-10.1 Below low normal [facility] Total Protein 6.4 g/dl 6.4-8.2 Normal (applies to non-numeric re sults) [facility] Albumin 3.0 g/dl 3.4-5.0 Below low normal [facility] Sodium 140 mEq/L 136-145 Normal (applies to non-numeric resul ts) [facility] Potassium 4.0 mEq/L 3.5-5.1 Normal (applies to non-numeric resul ts) [facility] Chloride 113.0 mEq/L 98.0-107.0 Above high normal [facility] Anion Gap 10.2 [facility] Carbon Dioxide 20.8 mMol/L 21.0-32.0 Below low normal [facility] The above 16 analytes were performed by [facility] [address], ,[place] [id number] ID Date Data Source [id number] 04/25/2021 05:24:00 PM EDT [facility] Name Value Range Interpretation Code Description Data Arabella rce(s) Supporting Document(s) TSH 28.10 uIU/ml 0.36-3.74 Above high normal [facility] Concentrations of Biotin above 100 ng/mL can potentially result ininterference.The above 1 analytes were performed by [facility] [address], ,[place] [address] ID Date Data Source [id number] 04/25/2021 05:24:00 PM EDT [facility] Name Value Range Interpretation Code Description Data Arabella rce(s) Supporting Document(s) T4, Free 0.63 ng/dl 0.59-1.61 Normal (applies to non-numeric resul ts) [facility] The above 1 analytes were performed by [facility] [id number], ,[place] [address] ID Date Data Source [id number] 04/25/2021 03:04:52 PM EDT [facility] Name Value Range Interpretation Code Description Data Arabella rce(s) Supporting Document(s) Progress Notes [facility] [id number] lbm [file] [id number] ID Date Data Source [id number] 04/25/2021 07:30:00 AM EDT [facility] CT SCAN OF THE ABDOMEN AND PELVIS [...] rce(s) Supporting Document(s) ID Date Data Source [id number] 04/25/2021 04:43:00 AM EDT [facility] Name Value Range Interpretation Code Description Data Arabella rce(s) Supporting Document(s) COVID-19 NEGATIVE [facility] This lab was ordered by [facility] and reported by [facility]. ID Date Data Source [id number] 04/25/2021 05:04:00 AM [facility] [id number] Name Value Range Interpretation Code Description Data Arabella rce(s) Supporting Document(s) COVID-19 NEGATIVE NEGATIVE [facility] Negative results should be treated as [...] are for the indentification of SARS-CoV-2 RNA. KafCCCV-BnD-6 RNA is generally detectable in respiratorysamples during the actue phase of infection. ID Date Data Source [id number] 04/25/2021 01:27:00 AM EDT [facility] l TSYSORDER [id number] Name Value Range Interpretation Code Description Data Arabella rce(s) Supporting Document(s) TSH 44.303 uIU/mL 0.358-3.74 H [facility] ID Date Data Source [id number] 04/25/2021 01:24:00 AM EDT [facility] l TSYSORDER [id number] Name Value Range Interpretation Code Description Data Arabella rce(s) Supporting Document(s) LACTIC ACID 0.8 mmol/L 0.4-2.0 [facility] ID Date Data Source [id number] 04/25/2021 01:24:00 AM EDT [facility] l TSYSORDER [id number] Name Value Range Interpretation Code Description Data Arabella rce(s) Supporting Document(s) C REACTIVE PROTEIN < 0.5 mg/L 0.0-3.0 [facility] ID Date Data Source [id number] 04/25/2021 01:24:00 AM EDT [facility] [id number] Name Value Range Interpretation Code Description Data Arabella rce(s) Supporting Document(s) MAGNESIUM 2.3 mg/dL 1.8-2.4 [facility] ID Date Data Source [id number] 04/25/2021 01:24:00 AM EDT [facility] [id number] R [id number] Name Value Range Interpretation Code Description Data Arabella rce(s) Supporting Document(s) LIPASE 308 U/L 73-393 [facility] ID Date Data Source [id number] 04/25/2021 01:24:00 AM EDT [facility] [id number] Name Value Range Interpretation Code Description Data Arabella rce(s) Supporting Document(s) GLUCOSE 93 mg/dL 74-106 [facility] BLOOD UREA NITROGEN 19 mg/dL 7-18 H [facility] CREATININE 0.80 mg/dL 0.6-1.0 [facility] SODIUM 137 mmol/L 136-145 [facility] POTASSIUM 5.2 mmol/L 3.5-5.1 H [facility] CHLORIDE 103 mmol/L 98-107 [facility] CO2 23 mmol/L 21-32 [facility] CALCIUM 9.2 mg/dL 8.5-10.1 [facility] ANION GAP 11.0 mmol/L 5-12 [facility] GLOMERULAR FILTRATION RATE 80 mL/min [facility] GFR IS CALCULATED IN mL/min/1.73m2 JUDITH L FUNCTION: >90MILDLY DECREASED: 60-89MILDY TO MODERATELY DECREASED: 45-59 MODERATELY TO SEVERELY DECREASED: 30-44SEVERELY DECREASED: 15-29RENAL FAILURE: <15 AST 28 U/L 15-37 [facility] ALT 24 U/L 12-78 [facility] ALKALINE PHOSPHATASE 70 U/L 46-116 [facility] pital TOTAL BILIRUBIN 0.5 mg/dL 0.2-1.0 [facility] TOTAL PROTEIN 7.9 g/dl 6.4-8.2 [facility] ALBUMIN 3.7 gm/dL 3.4-5.0 [facility] ID Date Data Source [id number] 04/25/2021 12:58:00 AM [facility] [id number] Name Value Range Interpretation Code Description Data [facility] rc(s) Supporting Document(s) WHITE BLOOD COUNT 9.7 K/mm3 4.0-10.0 [facility]LO[facility] 4.28 M/mm3 4.00-5.50 [facility] HEMOGLOBIN 11.1 gm/dL 12.0-16.0 L [facility] HEMATOCRIT 34.7 % 36.0-48.8 L [facility] MEAN CELL VOLUME 81.1 fl 80-96 [facility] [facility] MEAN CORPUSCULAR HEMOGLOBIN 25.9 pg 27.0-31.0 L [facility] MEAN CORPUSCULAR HGB CONC 32.0 g/dl 32.0-36.0 [facility] RED CELL DISTRIBUTION WIDTH 15.1 % 10.0-14.5 H [facility] PLATELET COUNT 169 K/mm3 172-450 L [facility] MEAN PLATELET VOLUME 11.9 fl 9.0-13.0 [facility] pital GRAN % 49.6 % 50-80.0 L [facility] IG% 0.1 % 0.0-0.2 [facility] LYMPH % 39.5 % 25.0-50.0 [facility] MONO % 8.5 % 2.0-10.0 [facility] EOS % 1.4 % 0-5.0 [facility] BASO % 0.9 % 0.0-2.0 [facility] GRAN # 4.8 K/mm3 2.0-8.00 [facility] IG# 0.0 K/mm3 0.0-0.2 [facility] LYMPH # 3.8 K/mm3 1.0-5.0 [facility] MONO # 0.8 K/mm3 0.10-1.20 [facility] EOS # 0.1 K/mm3 0.0-0.5 [facility] BASO # 0.1 K/mm3 0.0-0.2 [facility] ID Date Data Source [id number] 04/16/2021 06:48:00 PM EDT [facility] l Patient: SIENNA FOSTER Observation Re port - Physicians/Mid Levels [facility].VisitID: [id number] [place] [address] [phone], FRegistration Date/Time: 04/12/2021 20:14 Weight:74.8 kg (S). [...] rce(s) Supporting Document(s) ID Date Data Source [id number] 04/13/2021 06:12:00 PM EDT [facility] [...] Name Value Range Interpretation Code Description Data [facility] rce(s) Supporting Document(s) ID Date Data Source [id number] 04/12/2021 10:15:00 PM EDT [facility] TSYSORDER [id number] Name Value Range Interpretation Code Description Data [facility] rce(s) Supporting Document(s) LIPASE 368 U/L 73-393 [facility] ID Date Data Source [id number] 04/12/2021 10:15:00 PM EDT [facility] TSYS[facility] [id number] Name Value Range Interpretation Code Description Data [facility] rce(s) Supporting Document(s) GLUCOSE 87 mg/dL 74-106 [facility] BLOOD UREA NITROGEN 19 mg/dL 7-18 H [facility] ital CREATININE 0.82 mg/dL 0.6-1.0 [facility] SODIUM 139 mmol/L 136-145 [facility] POTASSIUM 4.3 mmol/L 3.5-5.1 [facility] CHLORIDE 103 mmol/L 98-107 [facility] CO2 24 mmol/L 21-32 [facility] CALCIUM 9.7 mg/dL 8.5-10.1 [facility] ANION GAP 12.0 mmol/L 5-12 [facility] GLOMERULAR FILTRATION RATE 78 mL/min [facility] GFR IS CALCULATED IN mL/min/1.73m2 JUDITH L FUNCTION: >90MILDLY DECREASED: 60-89MILDY TO MODERATELY DECREASED: 45-59 MODERATELY TO SEVERELY DECREASED: 30-44SEVERELY DECREASED: 15-29RENAL FAILURE: <15 AST 10 U/L 15-37 L [facility] ALT 26 U/L 12-78 [facility] ALKALINE PHOSPHATASE 77 U/L 46-116 [facility] TOTAL BILIRUBIN 0.6 mg/dL 0.2-1.0 [facility] TOTAL PROTEIN 8.5 g/dl 6.4-8.2 H [facility] ALBUMIN 4.0 gm/dL 3.4-5.0 [facility] ID Date Data Source [id number] 04/12/2021 10:13:00 PM EDT [facility] [id number] Name Value Range Interpretation Code Description Data Arabella rce(s) Supporting Document(s) HCG,SERUM NEGATIVE NEGATIVE [facility] False negative results may occur when th e levels of hCG arebelow the sensitivity level of the test. If isstill suspected, a first morning urine specimen should becollected 48hrs later.This test has a sensitivity of 10mIU/mL in serum cqz04qXN/mL in urine. ID Date Data Source [id number] 04/12/2021 09:56:00 PM EDT [facility] T[facility] [id number] Name Value Range Interpretation Code Description Data Arabella rce(s) Supporting Document(s) WHITE BLOOD COUNT 10.7 K/mm3 4.0-10.0 [facility] RED BLOOD COUNT 4.20 M/mm3 4.00-5.50 [facility] l HEMOGLOBIN 11.1 gm/dL 12.0-16.0 L [facility] HEMATOCRIT 33.5 % 36.0-48.8 L [facility] MEAN CELL VOLUME 79.8 fl 80-96 L [facility] l MEAN CORPUSCULAR HEMOGLOBIN 26.4 pg 27.0-31.0 L [facility] MEAN CORPUSCULAR HGB CONC 33.1 g/dl 32.0-36.0 [facility] RED CELL DISTRIBUTION WIDTH 15.7 % 10.0-14.5 H [facility] PLATELET COUNT 358 K/mm3 172-450 [facility] MEAN PLATELET VOLUME 10.7 fl 9.0-13.0 [facility] pital GRAN % 62.7 % 50-80.0 [facility] IG% 0.2 % 0.0-0.2 [facility] LYMPH % 27.7 % 25.0-50.0 [facility] MONO % 8.4 % 2.0-10.0 [facility] EOS % 0.5 % 0-5.0 [facility] BASO % 0.5 % 0.0-2.0 [facility] GRAN # 6.7 K/mm3 2.0-8.00 [facility] IG# 0.0 K/mm3 0.0-0.2 [facility] LYMPH # 3.0 K/mm3 1.0-5.0 [facility] MONO # 0.9 K/mm3 0.10-1.20 [facility] EOS # 0.1 K/mm3 0.0-0.5 [facility] BASO # 0.1 K/mm3 0.0-0.2 [facility] ID Date Data Source [id number] 04/12/2021 09:16:00 PM EDT [facility] spital TSYSORDER [id number] Name Value Range Interpretation Code Description Data Arabella rce(s) Supporting Document(s) URINE RBC 1-3 /hpf 0-3 [facility] URINE WBC 0-2 /hpf 0-5 H [facility] URINE EPITHELIAL CELLS 1+ /hpf 0 [facility] ospital URINE BACTERIA 3+ NONE SEEN H [facility] ID Date Data Source [id number] 04/12/2021 09:15:00 PM EDT [facility] ital TSYSORDER [id number] Name Value Range Interpretation Code Description Data Arabella rce(s) Supporting Document(s) URINE COLOR. YELLOW [facility] URINE APPEARANCE CLEAR [facility] l URINE GLUCOSE (UA) NEGATIVE mg/dL NEGATIVE [facility] URINE BILIRUBIN NEGATIVE NEGATIVE [facility] URINE KETONE NEGATIVE mg/dL NEGATIVE [facility] SPECIFIC GRAVITY,URINE 1.020 1.005-1.030 [facility] URINE BLOOD TRACE NEGATIVE H [facility] PH,URINE 5.5 5.0-9.0 [facility] URINE PROTEIN NEGATIVE mg/dL NEGATIVE [facility] URINE UROBILINOGEN NORMAL(0.2-1) mg/dL 0-1 R [facility] URINE NITRATE NEGATIVE NEGATIVE [facility] URINE LEUKOCYTE ESTERASE NEGATIVE NEGATIVE [facility] ID Date Data Source [id number] 04/02/2021 12:00:00 AM EDT [facility] Name Value Range Interpretation Code Description Data Arabella rce(s) Supporting Document(s) SARS-CoV-2 NEGATIVE [facility] This lab was ordered by [facility]-COVID19 and reported by [employer]. ID Date Data Source [id number] 04/02/2021 12:00:00 AM EDT [place] ([facility]) Name Value Range Interpretation Code Description Data Arabella rce(s) Supporting Document(s) SARS-CoV-2 (COVID-19) RNA [Presence] in Respiratory specimen by MELINDA with probe detection negative negative Sars-cov-2 [place] ([facility]) ID Date Data Source [id number] 04/02/2021 12:00:00 AM EDT [place] ([facility]) Name Value Range Interpretation Code Description Data Arabella rce(s) Supporting Document(s) ID Date Data Source [id number] 03/31/2021 07:42:12 PM EDT [facility] Name Value Range Interpretation Code Description Data Arabella rce(s) Supporting Document(s) Discharge Summary [facility] ZMNMLp8tFnCEEyMd85/EXSusKBLzq6TaWFwtFCh5LOxwNTDrH1DlIJA8pL7rUXI1DPlWBzVkGnCeMMRn [facility] [file] IJ4bYVt+Tv7Zi6AvnhQ0bdBqSUi5CWQ4NC0XOCYGL4RGRv== ID Date Data Source [id number] 03/27/2021 08:58:00 PM EDT [facility] Name Value Range Interpretation Code Description Data Arabella rce(s) Supporting Document(s) Nursing Note [facility] DOUOBd2fXbFUHmOp79/XCTpwFFGbm9GtJVinWYu9BKzmMEEaU9OiLKE8sH5lPCT8ZStLNoCsMpNgICZ5 lbm [file] QmjqSKgzVLYVWa3D ID Date Data Source [id number] 03/27/2021 08:57:40 PM EDT [facility] Name Value Range Interpretation Code Description Data Arabella rce(s) Supporting Document(s) Care Plan [facility] RJEUDp8lZpZDLpHd37/XGYjuVYYvz4BePUhkZGj4XCdoWRJsK5MgSYG1eT3gHPR7PAqXTwWgZzMfUOH1 lbm [file] VjVB2CDj2ZCyB7ZFH9mAIdZv3SNfNlIINUHwNnJQ4CKAl= ID Date Data Source [id number] 03/27/2021 11:56:07 AM EDT [facility] Name Value Range Interpretation Code Description Data Arabella rce(s) Supporting Document(s) Nursing Note [facility] KSSCQi7aVwWEFsMc27/LTQjeZBAcf7EtFUacZVt7VTypPKFoZ7KbXXS3iZ1wIDG3KVxHNoGuMxDnOKM6 lbm [file] 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/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/68EnYT0ogzb1ogNARjYWS1QErNhf1b3dQqvlk/BvRC0+o1qh60su4fVk4jo2sJ/DPMscSF [file] [id number]= ID Date Data Source [id number] 03/27/2021 10:35:44 AM EDT [facility] Name Value Range Interpretation Code Description Data Arabella rce(s) Supporting Document(s) Perioperative Nursing Note [facility] PSUMUj0qJkRURiGe34/JXFqqYNTpp9PsHAsnQBa8URdcJABvX7NmZOR9xY9uPNS3SFdBWaViIjHeZMR0 lbm OfQjqDXnEcRHBhHvuGQySpZNtyMknxxXWdBK6FdUX5IUIyY09qZCOlTSQlP1OuTHc7LJ8+IHggZND9cr UoeP0XTILZN8ra8jORdI+wf+HnMwVVJDc4IHLXhubRCGBfjm/TDUIel2wQpMMYBuaBF1fj8QGJiEfbRa dv4uWE52mSPumV5c8wxTLWECAl//AoFIPpEt6+gcrN Qrx11tQcXodVjLYQBwtOw01ZvMNcNNO4rPVV3ZtpvKvAKFClLY3phQQIsyx9GPLxO8WtADPQVVNmTad8 QDjTeSFKEuunlKM+XiAU073nQStjnSurEl7yPeg4YO2dmXZkYGx4FBsvlugS0is7xcgFqX2eB98mg5Ms RQvIt2+Mvm/fOg4Uk3RFddFpKk+cY+rFjzFAQ7Rjat XS5d0susg6vZOaPAeYdBR8CnlswKYqDwRACATWI6AP56ju4NDt7h0lDmhURl+IzELUo3ypN5lmUH7YdB qDdPh8ASkfyg0pkzOaHC0wTIL1VV/jazhLD4VfrVYC0m0zNKFsEl6s0Ool8E97f432RRlwfNPSzoXdzd OxMi3tCRoypxC/yeX7LNkKuhQNGAwKRNDg6hgq7QYw REYES+jCP1sARk2s0bY8klWrI8A6Yy4R5yJqlqE8n5A2L5vlv4YcWM/L3sRK9zpstONtsVsh04ZZWL+Lt3E [file] YOZlEhGgT5DLnaXPHRTd4M ID Date Data Source [id number] 03/27/2021 10:29:41 AM EDT [facility] Name Value Range Interpretation Code Description Data Arabella rce(s) Supporting Document(s) Perioperative Nursing Note [facility] QNPNTl0vAqWLTaZw40/FNPpbOXMpj3OsJHqoRPl9XDwfXOCmT1OrFHP6cK3lRWK8OGcGIqKpNiZoOLQ8 lbm [file] XuUoUI9UTWf= ID Date Data Source [id number] 03/27/2021 10:29:01 AM EDT [facility] Name Value Range Interpretation Code Description Data Arabella rce(s) Supporting Document(s) Anesthesia Postprocedure Evaluation [facility] SVTLGi6hFtZJTsEl67/TSLfyYXWfa1LuMVplYTd9TNcsCUQpL0GrHNZ3nK4cLTW7XKxFYzDeSlJsVSV6 lbm [file] Rg0K ID Date Data Source [id number] 03/27/2021 10:28:51 AM EDT [facility] Name Value Range Interpretation Code Description Data Arabella rce(s) Supporting Document(s) Procedures [facility] ZBIAAs1kTkUAUkBa91/VNGfpOVXpn9LnFBukNKx4GEedCYAgK4MtUJM1vM9mWQT6KFsHSbPcDqZnBLD8 lbm [file] JmLUM9ZWHnUYS2QYGbDQSwSqHaIF5SVy8OLnZ9HWS7fBXjTv6HMkBtJnXKSrGnYL3TMLi= ID Date Data Source [id number] 03/28/2021 09:48:00 AM EDT [facility] [address] [place] [address] [employer] CLIA# [id number] Surgical Pathology ReportPATIENT: SIENNA FOSTER CASE NUMBER:[id number] #: [id number] Date Collected:03/27/2021ccount #: [id number] Date Received:03/27/2021OB: 1980 Age: 40 y.o. Date [...] BISHNU/edwardo Electronically SignedBy:ICD: R89.7x2 Wai Castañeda, MDCPT: [id number] PathologistI ATTEST THAT THE ABOVE DIAGNOSIS IS BASED UPON MY PERSONAL MICROSCOPIC EXAMINATION OF THE SLIDES (AND/OR OTHER MATERIAL), AND THAT I HAVE REVIEWED AND APPROVED THIS REPORT.PERFORMED AT: [facility] [address] [place], [place] [address]THE TECHNICAL COMPONENT WAS PERFORMED AT [facility], [address] [place] [address].COUNSELOR AT LAW: WAI CASTAÑEDA M.D. [facility]# [id number].SIENNA FOSTER Page 1 of 1 Name Value Range Interpretation Code Description Data Arabella rce(s) Supporting Document(s) ID Date Data Source [id number] 03/27/2021 09:15:49 AM EDT [facility] Name Value Range Interpretation Code Description Data Arabella rce(s) Supporting Document(s) Anesthesia Preprocedure Evaluation [facility] UKEWZz1bJoSVAjHc09/WWNcrHXHoy4KtAFpjSGt3KZqvMIJpN2TqJYE1mW7fLQG0WFaBMmEzKlWpIPJ6 lbm [file] 3P4hie3D+k7VptLt0EGw54NXTEUrTt03dc72V0+rail track layer [file] ICAgICAgICAgICAgICAgICAgICAgICAgICAgICAgICAgICAgICAgICAgICAgICAgICAgICAgICAgICAg ICAgICAgICAgICAgICAgICAgICAgICAgICAgICAgICAgICAgDQogICAgICAgICAgICAgICAgICAgICAg ICAgICAgICAgICAgICAgICAgICAgICAgICAgICAgIC AgICAgICAgICAgICAgICAgICAgICAgICAgICAgICAgICAgICAgICAgICAgICAgDQogICAgICAgICAgIC AgICAgICAgICAgICAgICAgICAgICAgICAgICAgICAgICAgICAgICAgICAgICAgICAgICAgICAgICAgIC AgICAgICAgICAgICAgICAgICAgICAgICAgICAgDQog ICAgICAgICAgICAgICAgICAgICAgICAgICAgICAgICAgICAgICAgICAgICAgICAgICAgICAgICAgICAg ICAgICAgICAgICAgICAgICAgICAgICAgICAgICAgICAgICAgICAgDQogICAgICAgICAgICAgICAgICAg ICAgICAgICAgICAgICAgICAgICAgICAgICAgICAgIC AgICAgICAgICAgICAgICAgICAgICAgICAgICAgICAgICAgICAgICAgICAgICAgICAgDQogICAgICAgIC AgICAgICAgICAgICAgICAgICAgICAgICAgICAgICAgICAgICAgICAgICAgICAgICAgICAgICAgICAgIC AgICAgICAgICAgICAgICAgICAgICAgICAgICAgICAg DQogICAgICAgICAgICAgICAgICAgICAgICAgICAgICAgICAgICAgICAgICAgICAgICAgICAgICAgICAg ICAgICAgICAgICAgICAgICAgICAgICAgICAgICAgICAgICAgICAgICAgDQogICAgICAgICAgICAgICAg ICAgICAgICAgICAgICAgICAgICAgICAgICAgICAgIC AgICAgICAgICAgICAgICAgICAgICAgICAgICAgICAgICAgICAgICAgICAgICAgICAgICAgDQogICAgIC AgICAgICAgICAgICAgICAgICAgICAgICAgICAgICAgICAgICAgICAgICAgICAgICAgICAgICAgICAgIC AgICAgICAgICAgICAgICAgICAgICAgICAgICAgICAg ICAgDQogICAgICAgICAgICAgICAgICAgICAgICAgICAgICAgICAgICAgICAgICAgICAgICAgICAgICAg QOGeJDOgHEScFCWbQCPyMAIwIXNrCRSlLDPkIRKrQWTlNTOxJPBlCAVcVACwHNz7L6kaEFZbRVUdIA3r FQp0Mo5+ZYhTQePgGYP6qqWueT8MTO7ig3GkFEcqQH Eqr0CfQPw7AF4OXAYtDBkzTD1GYZxlhx7ZTRVyJCItrJEZk6wdJdYzFPZ6BBVdDgamAF9HMVLqB2lhbh QzXXKyXLDTUNsxMHVNYA0QNaZpJ8AouK61ISJOKa0+SEgrrqAwYsmTUaD1VUBil4TfPBz5JR9PDMJcAn trw9QcWcsvAJZIZNmeOX9DLXC7TIG6RBTyXa1IQETr G990ajIvKJ4LNb8SIsXvYA6nvs6UWpifVTTzIowYWwb3TPhgTX7LtZVtHLeScbBrlWccv8clITRhFXPs z2NhBANvCYXRsaPhbEF8fZ6eDUA9YGZrVPVwDVUgWdRxSX0hmhckKSZiGAUfTA7bAR9kWXApDFT7YaJz NHXAIW0MQGFcFWFvyKHeONOcMIUMOS5ILHgsOEL4Dj simtDmnDWhFWdxJO0AMBJlswKePsznVUIBCQi+Ba5ZDX5ke2IrSIirZERuIX0cbu9UWDrVMxBuQ9S7uY ZtC7V8MSidHa3GFEUuHTVpVrHhBOGHAVueAT1GHR2pdvW3WU8AdNThIHWjMGZgbKVtEGh7O74pkTLqOM seOP6XBYB+Mau+Br2VAVLoWBBoTZZzQhVhFFVRBdPz K2OqY9ZJg8VoO2GlXB48wAvfqxJwQVxxTQ6WNB4gUZGvQEINGD2CzPAlyS5tkbVmKxUsVDVPGmMeY52t qUMfVGIvHVA8VYXqFo1XLQOnP6EjyoBmxGqkkwPlFJOhLGDQNU9DXVillbNloMOifHnfOT57tJtfAT4H Jz8FBtSsCA9loo7MyCBuLg5LTIQrLJ3DUXIiCZPlAV WhKEW3BWFdGfQoEDunRISdZMBpJVS5SFRkORQoUX8WCcOkFKBgUjO6RxkkSLLyLEOrmz5HIZDtFLOoDc Z5RFTkUKPcTELcYVeeYIIwOOEzAAO7VOBeCCLePN3JMjDuPOEbBPFgBJkxJOQyPMZkkn0JQEIqQUZkAe EeUlLeGHSnOOPiIJarJOJhJOQsSEZ4ZGHlOUQaRC6D SrDvCAViWIWlOAKcPQPiYIUbmu5ZWQLhWCSdQRErVOUyCMLmMDLpOPkwKVYpYJQ4KtX0LQKoOAMrCD5Y GzIoDJRcUHB5FONcOWKrLMMgng1LGPOcBAXcSVI8VXFjKNQmOTYeTAisTFJfOXQ9CgAkQZMwVWApWE0E UmMoEVEpPNW0DhHxVDEwIUNxui1YEEAhBTFzJBK4PW IbYNDmMNKrWJcxOLShFAB2QIJxGHRjKKSkAZ1SQpCmYCFyTUw8XSawKSHdXLOwwv6QFATzUTEuGCg9KC ZrOAYtGQDqMHooDJVwGMZ6ISh2MMLqBDWrUH0FAyJnNUApHlEmJxsdUEHzVVOlcc0MKMZkLZChJWWcWc BfFWDsVSTqNMqfMQXoYQTbCpa0PASiVKWuVS8TOjCg VEYkLgLiBcxpDMEtGYIfwh0OYUNkKBGhBBHoUWTaASNiWPQkYRqqAOHkAEDjNxM1EWQyCSQpDZ5CIzQu VTWuTeHqVSRnLIDhLSRujx6EDIGvVFDbMuW0THTsUJQrWYKrRNfeEOGmJYQnMwV0CCIyBKTrYL5IDyCm EIAoAjW6UtSzNFScAOLrea2IzEUgfZydda4JFCiTAs 9PiDohGWWcJUpnZr3owXHuGXQjODQIPh5DnkRgQHKaQSLITJepHMRbAPT2OYK4YZQ5WCNcOCFjVAtuKD rhZUm1NGCvKZEvDPZxDlG2GDCtTYawCoD5RpT3OGV5KRB6XFJyZGpxDPUdP6R3AqU+LY7aYLp+Pg0Kc3 PludK9idXrDXtfKAT4KY4DTGGCL7OQNl== ID Date Data Source [id number] 03/27/2021 01:32:01 AM EDT [facility] Name Value Range Interpretation Code Description Data Arabella rce(s) Supporting Document(s) Nursing Note [facility] JBQGZi1zZwYWIlNm70/IVYyiHUZbu0LrEKwxGLe2IHmfOASgD8EuPIA9wV7jTAG0FHbBQiPfEzRwXVR1 lbm [file] L0SMPpZLZ8BnS8DKR7TXmyEnVcOU9LXj2HMfX9RSO2yEDsJv6GEpokHM5HKYLNC5LYAp== ID Date Data Source [id number] 03/27/2021 01:30:51 AM EDT [facility] Name Value Range Interpretation Code Description Data Arabella rce(s) Supporting Document(s) Care Plan [facility] QVDBDf2zRcHFZaTh01/IPEihUFYav3DfJCxrYGw1ZMkqZVCkQ6FeMAI9nM0iENQ5IHpFSkWwDvZnEDU7 lbm [file] ZvTbkvFULaIMF8XOd3QOzjZuyhQ9EqOLu+QA7mDVk+Rv4Tu0ZmsgX5qhKcDBh3XAg6COtkCGLZWg9S ID Date Data Source [id number] 03/26/2021 06:10:50 PM EDT [facility] Name Value Range Interpretation Code Description Data Arabella rce(s) Supporting Document(s) Nursing Note [facility] POVVXj6fDaPOPaDd85/REOmkTQGza2YkGMasZRd6MHvyOTCkZ7SpVYD5fT4aDWU8OAcNEkGbPsPeVYT5 lbm [file] xxUDGTGh4O ID Date Data Source [id number] 03/26/2021 06:01:18 PM EDT [facility] Name Value Range Interpretation Code Description Data Arabella rce(s) Supporting Document(s) Progress Notes [facility] YGHAPa4nQiBGYsWr04/ISGzbSPCqu1YbGWocVGu3FZvsBCAbZ0WyTYY2wJ1kLAG9TAoFQpUcKvXyKLT0 lbm [file] W7ZBB9IQssPXVLOc5Y ID Date Data Source [id number] 03/31/2021 04:38:00 PM EDT [facility] Name Value Range Interpretation Code Description Data Arabella rce(s) Supporting Document(s) Calprotectin, F <16 mcg/g <=50.0 (Normal) Normal (applies to non-numeric results) [facility] Test Performed by:[facility] [place] [id number] Director: Rashawn Vides M.D. Ph.D.; CLIA# [id number] above 1 analytes were performed by [employer] ([id number]) ID Date Data Source [id number] 03/27/2021 11:30:00 AM EDT [facility] Name Value Range Interpretation Code Description Data Arabella rce(s) Supporting Document(s) Campylobacter Not Detected Not Detected Normal (applies to non-nume ny results) [facility] Norovirus Not Detected Not Detected Normal (applies to non-numeric r esults) [facility] Rotavirus Not Detected Not Detected Normal (applies to non-numeric r esults) [facility] Salmonella Not Detected Not Detected Normal (applies to non-numeric r esults) [facility] Shiga Toxin 1 Not Detected Not Detected Normal (applies to non-nume ny results) [facility] Shiga Toxin 2 Not Detected Not Detected Normal (applies to non-nume ny results) [facility] Shigella Not Detected Not Detected Normal (applies to non-numeric r esults) [facility] Vibrio Not Detected Not Detected Normal (applies to non-numeric r esults) [facility] Y. enterocolitica Not Detected Not Detected Normal (applie s to non-numeric results) [facility] Enteric Pathogen Panel:Testing performed by reverse ethylbenzene cracking supervisor, PCR and array hybridization.A negative test result does not rule out the presence of diseaseThe above 9 analytes were performed by [facility] [id number] Christo Hallman,[id number],[place] [address] ID Date Data Source [id number] 03/26/2021 02:23:09 PM EDT [facility] Name Value Range Interpretation Code Description Data Arabella rce(s) Supporting Document(s) Progress Notes [facility] JIQWEd6sTbBODzHh16/DFMsjBPOpt3NdJBlbPEr2LAwmBAThZ3LdLUV1dE0iOYH8ZAyYUdYvSqYtLHL1 [facility] [file] EbMyDuL1VHarPRB3CDIcXGQoTxl+MI2dOOn+Py1Fw1MmcwM4zvNgHDcsGhA8Fb3LJWEPT6KKSk== ID Date Data Source [id number] 03/26/2021 12:38:41 PM EDT [facility] Name Value Range Interpretation Code Description Data Arabella rce(s) Supporting Document(s) Care Plan [facility] XBSHMs3lKjOGKeFo21/EFXauJJIgg4PwJBclXJx9GOfaKYCvP3FgHGY4tX1tHJC9ONdCXaXnUbVoYHR2 lbm [file] josé miguel/VnCugzHbVNoTqN+qzSCrSDeqAbp8egLc0CqLwrXgrgEJ89OZ3P7wS5TaJHaN9QG4HYUbIu6cJ8/5 [file] carpet yarn winder operator+nBxeyAaFovP62S8s7Ju5ET/K51fXWeHD2UCfS1Ho9Uk096TMsmz7mrtsy/0L/Ie7FXCcy9ffTf/l [file] AgICAgICAgICAgICAgICAgICAgICAgICAgICAgICAgICAgICAgICAgICAgICAgICAgICAgICAgICAgIC AgICAgICAgICAgICAgICAgICAgICAgICAgDQogICAg ICAgICAgICAgICAgICAgICAgICAgICAgICAgICAgICAgICAgICAgICAgICAgICAgICAgICAgICAgICAg ICAgICAgICAgICAgICAgICAgICAgICAgICAgICAgICAgICAgDQogICAgICAgICAgICAgICAgICAgICAg ICAgICAgICAgICAgICAgICAgICAgICAgICAgICAgIC AgICAgICAgICAgICAgICAgICAgICAgICAgICAgICAgICAgICAgICAgICAgICAgDQogICAgICAgICAgIC AgICAgICAgICAgICAgICAgICAgICAgICAgICAgICAgICAgICAgICAgICAgICAgICAgICAgICAgICAgIC AgICAgICAgICAgICAgICAgICAgICAgICAgICAgDQog ICAgICAgICAgICAgICAgICAgICAgICAgICAgICAgICAgICAgICAgICAgICAgICAgICAgICAgICAgICAg ICAgICAgICAgICAgICAgICAgICAgICAgICAgICAgICAgICAgICAgDQogICAgICAgICAgICAgICAgICAg ICAgICAgICAgICAgICAgICAgICAgICAgICAgICAgIC AgICAgICAgICAgICAgICAgICAgICAgICAgICAgICAgICAgICAgICAgICAgICAgICAgDQogICAgICAgIC AgICAgICAgICAgICAgICAgICAgICAgICAgICAgICAgICAgICAgICAgICAgICAgICAgICAgICAgICAgIC AgICAgICAgICAgICAgICAgICAgICAgICAgICAgICAg DQogICAgICAgICAgICAgICAgICAgICAgICAgICAgICAgICAgICAgICAgICAgICAgICAgICAgICAgICAg ICAgICAgICAgICAgICAgICAgICAgICAgICAgICAgICAgICAgICAgICAgDQogICAgICAgICAgICAgICAg ICAgICAgICAgICAgICAgICAgICAgICAgICAgICAgIC AgICAgICAgICAgICAgICAgICAgICAgICAgICAgICAgICAgICAgICAgICAgICAgICAgICAgDQogICAgIC AgICAgICAgICAgICAgICAgICAgICAgICAgICAgICAgICAgICAgICAgICAgICAgICAgICAgICAgICAgIC AgICAgICAgICAgICAgICAgICAgICAgICAgICAgICAg PDFpZRb0O8gxQTRxVKCsWK0wOHc1Qi3+OVqOMcGlVIN9oaDjdP6NIF0wh6YpVJakJSCxf9MaMQy2VU3E OSDiZMnzPX8OWBrgld0HAIRlPYGchKUDc5hpAgMbXXH7THVzPvqcOV6RPAGsY8dtbgLmKVObZTFDNPsh QTTYLP3TXdQlV2OjhD09YJUSAt7+DQplbmRvYmoNCj H6YINcb8IrPDf5RK6ZWDRlJiqdz5JxJzlxFWFRPMizLF4RZJL9PQO0FAOxLb1JQRIxE993voJaAW0JGs 7UTqGyHQ6lwl7LPtztWGDpQnuZWcc4AOkuBU4RzYAjOXqLMCSbNEPhWD0sAfwiO0Bwy7BtqrMiNHVJec 2dULUvIPMGPiWfbHX0XrL6VwHmEsKvEZY0UrmaNK8y PXxkBW1LNEA6LIlaYMGgIDZlL9yLKvXbSWrbRTZigNgpHU5WPwSoG9KkwqJkzQGzAlKqLCWOYg0+DQpl lfEiPgjSQaW9IIHjr7SaDFs4PD0OJOKyGCobOW7IWKGldB6gRSigFP9RWjPzHMDcKGMSIyJpD93fiXJu YWl9J4QtRjLhCIBgLvjuIMKkJAhwHbXrLZMiJwLmWG ogID4+ID4+HThuRM1ZSDhxncWtZBXeTd1VSTRiXIPtKR9gFMOqHQZjL3O5qGkqFLXXSmVaO3oiabckSY 8mJOQgV723xNbbdwRwDUO3ZPSdEu7UFIMhKVH1SHNylNVfMjYeJIGLAOlsUL7FvLEnNOQ1aL6pXFjuKH HgRNAsT8sWOlGwgJnzYU23aOwxijGwpLRaADe+Pg0K AL9ym4AnYKr6saWcOQzfSIYmOEgzXUJqDTZkLXHwMAW5DJN6FMOOGeVnNVThUCScNNlzUOEpZQMurz8S VWOcYYNbOKMyEhPoWFUmLNIaBTkzPBVdBZIqNAk1QSKbNAZgXB8ABvPvYSAnDZRlRZrmHGXrSXCtwg8U MDAwMDAwMzMyOSAwMDAwMCBuDQowMDAwMDAzNTMzID EmNAPdIG9HTvPaTZOcVNO7BmaaGRKwKPTdev2AKTNbQILyIHX1PUAwBKGlBSKhKJksDNLlCPQ8LwJ1SR BtRKTcUK6OAbXkFGWhFSB6UYVmNZVdKSQhgl8TIAReOFGqIfXaKdLzGWZcCJDpZNgyLPJyLAD1UQo5RP VeMBZxRB9PHfXrDGAlMIhfCHLcRLVtJYPnti4AVRZg ADGwEMU9FrLoNGRzPZCrNKmcUTHwVFX3FvE9NOGzUZJjCB0GRsYqONAnGBl8OcfhOIDaOECgdf5TZYDh DKRhRWupUfQpCQKzULZoVErpEWNoOBRzRub7ASQvAMQgEH0YSuVdRXAkBVX1OJMsUXKvSVNpsa1ONCRz TLVsFTA7OHPpLNSnZPJpUOucAPLyPUV5UXB1ZMYdYK YgMP7XKpWpQZCfCqDsLOcmNGApNFNsgt1ECWBcFSKoERU5IwOyRSQzQHGwNIlfSVZyAPQwSMVtSDJoIN RnNN9PCcKcVPSzGnKqVOKxSLGiPZEguj9FCHMqGQOfQVzaOHFhWFHjUCQnFLotKOGeZMRqEVk8IKIaQM EkTT1QFkQbEJGzVgVmZVthZYOhHPQmwj7QIEYoULZd FmC5IkLcFJGjGCOnDVi1cfRutXFmBSu7NF4IO2IbvtAgVkGVUu6Bi656MIG4NBDlNm8OJ0lfLs6yNTIu YANYGv6MBGl2EpKjQRV3SgW4ZSncGrH8DpUhVSe6QQJuP1TfFGLdCcn+NJzzJ1K8Oth5YGWkGSTjXqah OsAsCfTqGKTaPKOdYAUfUZ1dWFOBLx1+QIudoDUaoMfgSPPNRrBdXrGpBRoxVELLZf4W ID Date Data Source [id number] 03/26/2021 05:02:00 AM EDT [facility] Name Value Range Interpretation Code Description Data Arabella rce(s) Supporting Document(s) Blood Urea Nitrogen 5 mg/dl 7-18 Below low normal [facility] Creatinine 0.79 mg/dl 0.51-0.95 Normal (applies to non-numeric resul ts) [facility] N-Acetylcysteine (NAC) and Metamizole em ve the potential to falselydepress Creatinine results. Baseline values before medication adminstration are recommended. Patients undergoing treatment with phenindione will have falselydepressed results. Patients on phenindione therapy should be tested with an alternativeCREA method.Toxic levels of acetaminophen may lead to falsely depressed results forpatient samples. Glomerular Filtration Rate 81.00 mL/min/1.73m2 [facility] GFR Reference Ranges:Normal Function or Mild [...] of Health and the [employer]. The [place] method used in calculating this result is traceable to IDMS standards. Glucose 82 mg/dl 70-110 Normal (applies to non-numeric resul ts) [facility] Sulfasalazine has the potential to false ly depress Glucose results. Sulfapyridine has the potential to falsely elevate Glucose results. Baseline values before medication administration are recommended. Calcium 8.0 mg/dl 8.5-10.1 Below low normal [facility] Sodium 140 mEq/L 136-145 Normal (applies to non-numeric resul ts) [facility] Potassium 3.6 mEq/L 3.5-5.1 Normal (applies to non-numeric resul ts) [facility] Chloride 110.0 mEq/L 98.0-107.0 Above high normal [facility] Anion Gap 6.7 [facility] Carbon Dioxide 26.9 mMol/L 21.0-32.0 Normal (applies to non-numeric results) [facility] The above 10 analytes were performed by [facility] [id number] [employer], ,[place] [address] ID Date Data Source [id number] 03/26/2021 05:02:00 AM EDT [facility] Name Value Range Interpretation Code Description Data Arabella rce(s) Supporting Document(s) Magnesium 1.8 mg/dl 1.6-2.6 Normal (applies to non-numeric resul ts) [facility] The above 1 analytes were performed by [facility] [place] [id number], ,[place] [address] ID Date Data Source [id number] 03/26/2021 04:45:00 AM EDT [facility] Name Value Range Interpretation Code Description Data Arabella rce(s) Supporting Document(s) WBC 4.62 x1000/ul 4.80-10.00 Below low normal [facility] RBC 3.66 x1Mil/ul 4.20-5.40 Below low normal [facility] Hemoglobin 9.4 g/dl 12.0-16.0 Below low normal [facility] Hematocrit 30.0 % 37.0-47.0 Below low normal [facility] MCV 82.0 fL 81.0-99.0 Normal (applies to non-numeric resul ts) [facility] MCH 25.7 pg 27.0-31.0 Below low normal [facility] MCHC 31.3 g/dl 32.2-37.0 Below low normal [facility] RDW 15.9 % 11.5-14.5 Above high normal [facility] Platelet Count 232 x1000/ul 130-400 Normal (applies to non-numeric results) [facility] MPV 10.8 fL 9.4-12.4 Normal (applies to non-numeric resul ts) [facility] Nucleated RBCs 0.00 % 0.00-0.20 Normal (applies to non-numeric r esults) [facility] Abs. Nucleated RBCs 0.00 x1000/ul 0.00-0.02 Normal (appl ies to non-numeric results) [facility] The above 12 analytes were performed by [facility] [id number], ,[place] [address] ID Date Data Source [id number] 03/26/2021 12:22:38 AM EDT [facility] Name Value Range Interpretation Code Description Data Arabella rce(s) Supporting Document(s) Nursing Note [facility] UPCCJp3uUgNDAcKy00/XKLcnTTGhh2GbOUavAPo1FGnnSBDiT9BnVNR6zF4vZNO6BOzQWnLgYpZxJUW5 lbm [file] IgPlUoUF3KYm1HBxM1HQN2cAGvRl4KHafkJD4ALDQDG2IEJo== ID Date Data Source [id number] 03/26/2021 12:17:58 AM EDT [facility] Name Value Range Interpretation Code Description Data Arabella rce(s) Supporting Document(s) Care Plan [facility] BICDXs6vEyPBUpBd79/HCHabCURcq3QpNWbcYRw9WZtrAXRlU2UmEQE7tX2hNNN2SNkCZgIbVtGiSSW0 lbm RgYbfTRsGoPGQdMnfCTtIwEWgeTviacNGuSF1QzEN0UJLvH47qBLCcNXHjT8XzOEO0PUf+Qr1BDKQycU GcLL2SJiwS9CeAd5z2DG70vo5CkhIrmV3IVMM13bL0pr3fZf+wt3wegBVO49KXNvBThx0mRKO0a5bLOo i0dF3UXhB+G0D013HHGue7vZqZWgFpa/J//VWnkvUm 5Ouc3NXHJJlDXd/QGMWKtzJ3e2W/XoP9ScbclPHWYllwTwdlH5qaHrlBxp6qQgQTOey8ZxiDYH7wHi0q pB026XMWK4lr2I8e53PglpBCJulhPktb//c/37J3d2eScFIxp2jkPrZsjekwvDclyFDnwumitajqX1cp bnr4waeyc8nYF+jkfm77Oy/wss8B6K/o3OWGYaEHot 6ufGQUX8vNhxDVu3w0ZUbcWqokEG4nYNGN+4cUTEFdS1yg7GZTYTKsQNlEYj4sgWwJOwWreooWWbRQpu ousoZ/Vs2Lu/3dTRg09kpDJxVcrE0Lm6V/J+Jackson+umLftNR9SLpMBl7rNrUgj6fayoRPeby+Q+jMTtfFl tar6dLjw91POsymMjg13ZCEOyCJZC1KuPF7/Ztf9Q9 8HuRBPT3sqnTGjOdk0xcUDOsDOxmyyUWQqOxJNmDn/Y7NVGOzi8A6SCP0ZfRH4wtkPhNl0i/zskYi2Xw 3m/V+DWPN+KErDPkwyfyld3SdkorBy83pvcruNH6wkqsNg3Mh9iuq6YWeK/d5ZRQ+uXOr/K+Hv46xG3B 5tyo45w02US/Kp7hzlc4yiivGXagbjYdOvadrbq8SU [file] JgRWBnSJEfVvTnYdy0GmF1ZSKhUZSeSmBvTT0YZu5TYgO1ITG0oCXbSo3WGKj7Kk8SSIYQB0ZARv== ID Date Data Source [id number] 03/25/2021 07:13:18 PM EDT [facility] Name Value Range Interpretation Code Description Data Arabella rce(s) Supporting Document(s) Care Plan [facility] BXALKa6vViWKKgFx86/MJZdeYMZgz2KsASlnJGm0BZfiHVZhK9ScNEG1hX9fCCZ3USvBAmTaTnXiSOO4 lbm [file] 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/VbYra/35DtTR7nalq5lyJQBuESE6DHrRhj4k8bWapch/BvRC0+u1uc74rf0jHz8sh9wM/DPMscSF [file] XSANCj4+ZAzzsXKibKjrPKVUCdSuSGD9IBdaHXPHVa5B ID Date Data Source [id number] 03/25/2021 07:12:23 PM EDT [facility] Name Value Range Interpretation Code Description Data Arabella rce(s) Supporting Document(s) Nursing Note [facility] BVWPLp6jZyLXZjEi06/BORfzTVErm8ZyHSspLLn1NEmwOCIeP5FfYLH2vY8aRRC7MNsLHxAxPjGaXKY2 lbm LtBprLTwGzNARiJdaNJjAjPGxdNpwduTCoJE3YbEK1YMAbH74hVYXcRHTcI3VjMPRhIzX+Mt1ZJTYxhN VkEJ6NHwhE7OtxtrX1CY3U7t/SR6auaso8sD+EkLiUSkgUSqPzcjgPKdmGQG+kCQV+/dmNvUm+wZo27R ZB+3XL5KfUg/vGuyEKf1+r8oqdPKI/y6+uNPTxlB4+ uXX3ySu3px2oPyIhwTqpZYCnP/2rQq/AhVpFk8FM6kb67MlmYRxKcR9tJngFRR24to7s38r8Zk5X2QkA fn5xjiGXe+W4Wux9xr28mVn8jfzqJ/oNmgNVsL7JrzgmNyIanhapuU5R9YTxpl2KzPNqeWGHBAZXDcBb UyyFz8xS4wniXJaNyp6L17kFFCns+peZH4RT+jZEGO dXNQDvuBf6SgBPq8Oje+9kWIrtUNBNDIdJa9KNq7g8KlT23oUMKYmAoTdupFNDMFbkIFlI5xUnF7thjV AU3D2Ai6sFeRgJdSpow78KapvgXuGA66Pdzqp1R4pS5EODQlm88uyLpFWeRgqZRp78Dd/7O4LmlWZp6v Z5z7Ab0KExTcJih9w3f8+/vuXW+tF2QFnBwnGJVoIv bTE0jxRvn0xOtLhDTlp3s/QNgOvhbY8nhpIrL9FBfOZ/aPD6/mTnnvk0Fawo76KttnYIGPqHrD43YWaI WeTyx6mC0Q7k/aAvpW1XIsaDm8AbXD5g75a25fZFfJZAl3h8y52M06gpx+gvkd+UsK6YqWand1UrREfm f2G/DL2t09Q227RzLTcih9x9Tw1eRmsRK4cpRc/Clau [file] qxCLIHGr6R ID Date Data Source [id number] 03/25/2021 05:38:02 PM EDT [facility] Name Value Range Interpretation Code Description Data Arabella rce(s) Supporting Document(s) Progress Notes [facility] NNYQMj8rAhACVhZn36/YNQhlJKUmh4YiUNveNVx1QGskIDLmC6HaLTV6rQ7jSMO7WNnZDoEhIhNjAPI4 lbm [file] MSRmAlXT3IKZt= ID Date Data Source [id number] 03/25/2021 03:02:31 PM EDT [facility] Name Value Range Interpretation Code Description Data Arabella rce(s) Supporting Document(s) Anesthesia Postprocedure Evaluation [facility] PBVFFw3hDgSZUzWi08/QCNbgUQMuc7HrKHvmKQc2IIugWLOtF3PkZLH5nM2dIVM6INvQFrUyGcMxCDE8 lbm [file] MDAyMzQxMCAwMDAwMCBuDQowMDAwMDIzNTgxIDAwMD AzTD3GUeAhBVilKSMUMls0WXmiM9c3CYCxEX3ZM7Fra1RdDyklIVNFUMwoBS8kkaNaPCGjQs0WB7bDIc nlY6HxHIF2YCpsXKE2ETUcAMDvPPJ8TjM8MkCzLrDqTq7uDGLmC5S5AMl7KIK7Afa1IsUxTiEtMTIfMG r6RuKsD6NqRuJyGU9QCy0TKzE4MPD3kOUmKn5MIkF2JyYKOeFpAD1MKAc= ID Date Data Source [id number] 03/25/2021 10:57:36 AM EDT [facility] Name Value Range Interpretation Code Description Data Arabella rce(s) Supporting Document(s) Nursing Note [facility] ULOSYu6fIkCTQoJk01/GCYydODRpw9WrWEoxCUn7FIqbASSrV6OsSSY5zR3kAMO9PMsSPlNyDrIjNXG8 lbm [file] ICAgICAgICAgICAgICAgICAgICAgICAgICAgICAgIC AgICAgICAgICAgICAgICAgICAgICAgICAgICAgICAgICAgICAgICANCiAgICAgICAgICAgICAgICAgIC AgICAgICAgICAgICAgICAgICAgICAgICAgICAgICAgICAgICAgICAgICAgICAgICAgICAgICAgICAgIC AgICAgICAgICAgICAgICAgICAgICANCiAgICAgICAg ICAgICAgICAgICAgICAgICAgICAgICAgICAgICAgICAgICAgICAgICAgICAgICAgICAgICAgICAgICAg ICAgICAgICAgICAgICAgICAgICAgICAgICAgICAgICANCiAgICAgICAgICAgICAgICAgICAgICAgICAg ICAgICAgICAgICAgICAgICAgICAgICAgICAgICAgIC AgICAgICAgICAgICAgICAgICAgICAgICAgICAgICAgICAgICAgICAgICANCiAgICAgICAgICAgICAgIC AgICAgICAgICAgICAgICAgICAgICAgICAgICAgICAgICAgICAgICAgICAgICAgICAgICAgICAgICAgIC AgICAgICAgICAgICAgICAgICAgICAgICANCiAgICAg ICAgICAgICAgICAgICAgICAgICAgICAgICAgICAgICAgICAgICAgICAgICAgICAgICAgICAgICAgICAg ICAgICAgICAgICAgICAgICAgICAgICAgICAgICAgICAgICANCiAgICAgICAgICAgICAgICAgICAgICAg ICAgICAgICAgICAgICAgICAgICAgICAgICAgICAgIC AgICAgICAgICAgICAgICAgICAgICAgICAgICAgICAgICAgICAgICAgICAgICANCiAgICAgICAgICAgIC AgICAgICAgICAgICAgICAgICAgICAgICAgICAgICAgICAgICAgICAgICAgICAgICAgICAgICAgICAgIC AgICAgICAgICAgICAgICAgICAgICAgICAgICANCiAg ICAgICAgICAgICAgICAgICAgICAgICAgICAgICAgICAgICAgICAgICAgICAgICAgICAgICAgICAgICAg ICAgICAgICAgICAgICAgICAgICAgICAgICAgICAgICAgICAgICANCiAgICAgICAgICAgICAgICAgICAg ICAgICAgICAgICAgICAgICAgICAgICAgICAgICAgIC AgICAgICAgICAgICAgICAgICAgICAgICAgICAgICAgICAgICAgICAgICAgICAgICANCjw/mINrI3eefD PmrvC8U0chCp0RNt2TRR4of3BhANCbBEhcglFeLrsXOuCbLJAlOxgVWau3XHviKI3DtHXuH2BnX4AxRY ugKT2JGROyQDBiiYJqUKRfZUZbUyD8SOKoCBblBL0J pSNmQXihGUZfYKVdSK5IZDAqM483mrEaOU2MEj7NPrSoMW0wrd8FLoVlKNLfPcgAIqq3LKieCI9ArWYf vCJsDaZzGQKRKpJlU0quj4HwEpMnIQVWYIofEF3Jn9DgmYOdSCk+Jx7YQI7vu1DqAIkeSiGuIP1vmd9Y MFfDCfDzX6ZurYljFU10xjOtxzkaFt12ZSDcgTGAuV XawTAxaJFpIXm4s11gXUOAFTI1ABpsVSkoTvGyXVAqXEz7ZUVYXVwNQpZiM4Fcy5UmZxD8CDDjLuYlWM eoYGAiYkP3NP05yRviTB1BDJSyONOfOU58IGRiBPJhRt3TTh1WNxIcAP7jzo3JNmAhBFXvUgmUUua1CS yjGM4VrVIaB3BqxDZcu3wPJfSxV8IUVCXiQZNyEc6O KVGlXfOuDCMwXOoeYU6rZDCtAVXFaGeaavS2LY4LUP4tpfShMI9TKyRvJf1vKf5VWuLtI4ArF7WmUNOc TNZFLDliCB1ANVktHS8zQL2Dx7DMyATfkR0mik8RXLUnVHHnEhcnod5FNvttG5N9mRtrRUIeYvAwLYDP RSdoWD1THEBiTEK0WZNcYPFrQEHSVhEjN19zOY8FC1 Knm27cUwC0ZTKkCuBqXBmyNB05fYohsrZvuDNauEzmZT5IWh9+DQplbmRvYmoNCnhyZWYNCjAgMjUNCj NrBDMaACIvBHJkTaX4EuChHr6VWBSsWXSfOENvVtOuOWJzLYEbEPeySGSxXTF7DJH4PRImSNRkYE9IEh FuCPNgSyPzRWYbHKCeLSVrzn4WIWLaEQTlALD1DoWr GBApYDUlBUvqZIKuKCNkIOHiVEVkWVMqKM5DHwFbERVlDWJlGZWeZOJnUHQdjv6YPZRyHGChFzOvMiRv OHLgZXMzSJabXSSfTPVzJCVcFJVzQTIbPQ2NUtEkAPAmSKZ9TNkdQPGrZPPxja1PHARbJGUeUsO9HvEu MJPwBQUvNGojMDUrXCXqGdX9RGEzLDIwND5BGdYmZY BfANI9IvReGDSuHHTlfs6WJEFkZNHwYpV1ZPAaYNEnMXUiINrpKAIbICZ4IQzvKTMrXJWaER2LUxSoZL UnDQG0ICKmLZWeUVOuwm4AFKVwGUNkRkU6SPKoHEHiALFzFZgeKIOlHQT5YCe3KPNbTPNvLF2RSuKkRX TcEFpgJcbyHEBcSOCoyq6ZDWKdOOVrWEGzCzTxZRXj GZTgSEcxMAWwIGM8PEz3CWVtLPAzKH1GDvKzEECaYRh9VIYhWGIhWWGokq3ORLRqILOrNQN4OKArNKDn ALMyPEicJFJuBSHmMXZgKLNrZPGvEH1OUvFvDHBsAeI8IRrxUWFbHYVetf6TrUTxrVetub4LFOyKDa6Z aBmiIGI4BHreYw9thPYnJKLhLXDYGf2QxhZxQRWuOB RUUHzwXFWuOFFlQDZjFINfLCDqGIFwZMUmZ2T3KlhzBDHlLAdkUlHmSpB3SkU6UWY8NQO7WFG8WPPuKS PvCkgwEKEsGdKmWVV9ENK+SA0kTQi+As1Uk2LgoxZ9vmQqMNgfANouHq9EDMXRW1ZMBg== ID Date Data Source [id number] 03/25/2021 10:48:41 AM EDT [facility] Name Value Range Interpretation Code Description Data Arabella rce(s) Supporting Document(s) Nursing Note [facility] UTZLSx0aHxPVLjGa83/CBRfrCOJwi2JeXKcpSMt6TGwpUNDmW3KlHSY5jV3lDJY6MRlJTyDnCmZtTPJ6 lbm [file] 3HNrI9XJZ9tYZeEn4RPaF5QWHTDtBwSU6HINz= ID Date Data Source [id number] 03/25/2021 10:42:08 AM EDT [facility] Name Value Range Interpretation Code Description Data Arabella rce(s) Supporting Document(s) Procedures [facility] KEQWFj0zNsMSNwPq02/VGIypLUOfo7MiOIvhBFj0GSglMLZyS0FzQWG5yR9jZNY3KWbWOsWmMiQnHSA4 lbm [file] HvMwF8G5QuAFBsFqNyDO6ZZv4UKjT8QSR4bCSlEk9RJpS6AbFKMrYwRK4OPTc= ID Date Data Source [id number] 03/25/2021 10:11:38 AM EDT [facility] Name Value Range Interpretation Code Description Data Arabella rce(s) Supporting Document(s) Anesthesia Preprocedure Evaluation [facility] OYWTMy9cKhUAHkVf17/QKWluWHExp1NdKOrhCId7GEyaGPKhI9LmNFJ4dV2oNYF6NGuOYbGyScCjMRC8 lbm [file] BchLcnkSjz6fnATnQdvkdr+P368qoJ/c+yI0+eeT06nThIhHQdiC1Uzc69w7DrhSFzRKsLrb9fed/[place]ocío Oywn1wC/33UsSXQ2d/FVzJnXY6EZ8h3lU1/qPg+f5H 0lMIBrJ6cnPnTloKZiPA7qZ3VHuJ+eNHADkMKnNayncaPX9X+ulwYO824UXkcUMvHpCORcuwb0kEgFWm hbW/rogelio+C61/C0jkyHqmnD4UZaAtZsXCeqnZgH9prYXzJuIFHqTFzBxyeaNV7hv4PMuZbyw5kIRrL2jk [file] IoGF0IKv4GAwL0BUF0rEPxDb8FVuIqUpcDUtEtGR1VXNk= ID Date Data Source [id number] 03/25/2021 09:23:31 AM EDT [facility] Name Value Range Interpretation Code Description Data Arabella rce(s) Supporting Document(s) Perioperative Nursing Note [facility] OWFFWh4aTjJZNvQq02/TKJuyUYMvy7XlJEquJYw5NBudOCLdL0JqDXX7qN9kXTK4WPxQDoUfRkGbMOR0 lbm QaKmwBNqLjTDDvKvdTFgSjIHnbYbrcvTMtFU8IjIK3HYQvV23rWBGxTSUeA4EpFNsqVY8+DArkHKW0oo CekX9WKSFIBKpv35GRyQnoQ+vPWq3xt6p1IpCsYgLShKwsP7iWBuflcYhM0yQz81V3zyttIKqyzbKxX6 s0s+oPgvf5JuL/E4cBVIlwYm4Wz5wOfieYisgJdKHf tav3IbyzRGGKqC1Cdpu56GUiBirKSL/2hSIKzFcXFhaMWYXYqkAN4OzD+jXDKWT6GgOZHF5hDpbbnlYZ 1TTvK7Y9yj91RV+aoGt01LLH8b/JifUTidOTcwbqwD5RXneqJizXgVZxFMWQjpytcjYBdEfLZaqsxy3s 7xME4Q7eNuyzkKSJ7VKWEiOkAr6nnNnbtzORyUo0u6 RZOsnx34W6f2DxU1rgjKvj3zOhXLgWpE7QVkqJ6gweZLxs/dFUo+kAlByVymcrUMlQdLTcVyiUDJruQS zCy+Jj8jfANP96OcW1MkGBXkTBf28He73Mk5wyQHuAuOgeRyXNijJpi3WV8nb8+L6JxFAsIDlskr+t6H CcrLZpNHzauEKpdcN7/iycv69CrfYVl5c1hUzYoPIN gEdnzRI1jFU1aihIEf8c+ebchOzo0lDRy2+ST46aIPaI0wC95oqheXQkmtWXSzkGFB9dBE4M66H3BK9a RCz4Ry8Et056GdAxlvpFyxfCUZ9z5mEI+v8Wgq83v5U+2V7OQFW67m/wWKmbPNC2O1dkBX/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 [file] 9GDQo= ID Date Data Source [id number] 03/25/2021 07:03:25 AM EDT [facility] Name Value Range Interpretation Code Description Data Arabella rce(s) Supporting Document(s) Nursing Note [facility] CCOANm8lRlYQCpQp44/ZZFziGPWrb3ZoLRcaMTy3GWupSJQnE3WfEFF5rK9vFQJ7UDeRLiBfLcSuXZP2 lbm [file] 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/VbYra/57EfTW0tegf0zfPYAgLWG4LPyBxq8v2tWdmjt/BvRC0+r8eu61md3rGh3ax7rC/DPMscSF [file] 0K ID Date Data Source [id number] 03/25/2021 05:44:00 AM EDT [facility] Name Value Range Interpretation Code Description Data Arabella rce(s) Supporting Document(s) Blood Urea Nitrogen 6 mg/dl 7-18 Below low normal [facility] Creatinine 0.72 mg/dl 0.51-0.95 Normal (applies to non-numeric resul ts) [facility] N-Acetylcysteine (NAC) and Metamizole em ve the potential to falselydepress Creatinine results. Baseline values before medication adminstration are recommended. Patients undergoing treatment with phenindione will have falselydepressed results. Patients on phenindione therapy should be tested with an alternativeCREA method.Toxic levels of acetaminophen may lead to falsely depressed results forpatient samples. Glomerular Filtration Rate >90.00 mL/min/1.73m2 [facility] GFR Reference Ranges:Normal Function or Mild [...] of Health and the National KidneyFoundation. The [place] method used in calculating this result is traceable to IDMS standards. Glucose 92 mg/dl 70-110 Normal (applies to non-numeric resul ts) [facility] Sulfasalazine has the potential to false ly depress Glucose results. Sulfapyridine has the potential to falsely elevate Glucose results. Baseline values before medication administration are recommended. Calcium 7.8 mg/dl 8.5-10.1 Below low normal [facility] Sodium 140 mEq/L 136-145 Normal (applies to non-numeric resul ts) [facility] Potassium 3.4 mEq/L 3.5-5.1 Below low normal [facility] Chloride 110.0 mEq/L 98.0-107.0 Above high normal [facility] Anion Gap 8.7 [facility] Carbon Dioxide 24.7 mMol/L 21.0-32.0 Normal (applies to non-numeric results) [facility] The above 10 analytes were performed by [facility] [id number], ,[place] [address] ID Date Data Source [id number] 03/25/2021 04:56:00 AM EDT [facility] Name Value Range Interpretation Code Description Data Arabella rce(s) Supporting Document(s) WBC 4.87 x1000/ul 4.80-10.00 Normal (applies to non-numeric re sults) [facility] RBC 3.54 x1Mil/ul 4.20-5.40 Below low normal [facility] Hemoglobin 9.0 g/dl 12.0-16.0 Below low normal [facility] Hematocrit 30.0 % 37.0-47.0 Below low normal [facility] MCV 84.7 fL 81.0-99.0 Normal (applies to non-numeric resul ts) [facility] MCH 25.4 pg 27.0-31.0 Below low normal [facility] MCHC 30.0 g/dl 32.2-37.0 Below low normal [facility] RDW 15.9 % 11.5-14.5 Above high normal [facility] Platelet Count 201 x1000/ul 130-400 Normal (applies to non-numeric results) [facility] MPV 11.1 fL 9.4-12.4 Normal (applies to non-numeric resul ts) [facility] Neutrophils 50.5 % 40.0-74.0 Normal (applies to non-numeric resu lts) [facility] Lymphocytes 35.7 % 19.0-48.0 Normal (applies to non-numeric resu lts) [facility] Monocytes 10.7 % 3.4-9.0 Above high normal [facility] Eosinophils 2.1 % 0.0-7.0 Normal (applies to non-numeric resu lts) [facility] Basophils 0.8 % 0.0-2.0 Normal (applies to non-numeric resul ts) [facility] Immature Granulocytes 0.2 % 0.0-0.5 Normal (applies to non-nu meric results) [facility] Nucleated RBCs 0.00 % 0.00-0.20 Normal (applies to non-numeric r esults) [facility] Abs. Neutrophils 2.46 x1000/ul 1.92-8.31 Normal (applies to non-numeric results) [facility] Abs. Lymphocyte 1.74 x1000/ul 1.20-3.70 Normal (applies to non-n umeric results) [facility] Abs. Monocytes 0.52 x1000/ul 0.14-0.97 Normal (applies to non-nu meric results) [facility] Abs. Eosinophils 0.10 x1000/ul 0.00-0.76 Normal (applie s to non-numeric results) [facility] Abs. Basophils 0.04 x1000/ul 0.00-0.22 Normal (applies to non-n umeric results) [facility] Abs. Immature Gran. 0.01 x1000/ul 0.00-0.02 Normal (appl ies to non-numeric results) [facility] Abs. Nucleated RBCs 0.00 x1000/ul 0.00-0.02 Normal (appl ies to non-numeric results) [facility] The above 24 analytes were performed by [facility] [id number], ,[place] [address] ID Date Data Source [id number] 03/25/2021 03:48:12 AM EDT [facility] Name Value Range Interpretation Code Description Data Arabella rce(s) Supporting Document(s) Care Plan [facility] FNJZXj8dBkSNLlQu69/TGYohVOJue0MmZCynRDd7UIpjVIPqC0JdCOP7jN2xKSX0VTrWNeQtGxBhSJV1 lbm [file] KeLJXsKDL9BPRwKBH3KuLwQwGlWWEeUsP6Ta7oYF ANCj4+FZqwqTCkkRlpVMRVTwA3XwBcXNbzDQLXKo2Z ID Date Data Source [id number] 03/24/2021 06:47:36 PM EDT [facility] Name Value Range Interpretation Code Description Data Arabella rce(s) Supporting Document(s) Progress Notes [facility] QCWRVb7eTdHLQjXm81/VZTakNKKlq2DuGZwaPTa9WQprIHHsS2ObAGC0pS1pYEN6CFmKCoBcNeUhSFY8 lbm [file] nV6DrqQsNRZSz8dch+IOxXfu/BvdGB7rz87u/O [file] AgICAgICAgICAgICAgICAgICAgICAgICAgICAgICAgICAgICAgICAgICAgICAgICAgICAgICAgICAgIC AgICAgICAgDQogICAgICAgICAgICAgICAgICAgICAg ICAgICAgICAgICAgICAgICAgICAgICAgICAgICAgICAgICAgICAgICAgICAgICAgICAgICAgICAgICAg ICAgICAgICAgICAgICAgICAgDQogICAgICAgICAgICAgICAgICAgICAgICAgICAgICAgICAgICAgICAg ICAgICAgICAgICAgICAgICAgICAgICAgICAgICAgIC AgICAgICAgICAgICAgICAgICAgICAgICAgICAgDQogICAgICAgICAgICAgICAgICAgICAgICAgICAgIC AgICAgICAgICAgICAgICAgICAgICAgICAgICAgICAgICAgICAgICAgICAgICAgICAgICAgICAgICAgIC AgICAgICAgICAgDQogICAgICAgICAgICAgICAgICAg ICAgICAgICAgICAgICAgICAgICAgICAgICAgICAgICAgICAgICAgICAgICAgICAgICAgICAgICAgICAg ICAgICAgICAgICAgICAgICAgICAgDQogICAgICAgICAgICAgICAgICAgICAgICAgICAgICAgICAgICAg ICAgICAgICAgICAgICAgICAgICAgICAgICAgICAgIC AgICAgICAgICAgICAgICAgICAgICAgICAgICAgICAgDQogICAgICAgICAgICAgICAgICAgICAgICAgIC AgICAgICAgICAgICAgICAgICAgICAgICAgICAgICAgICAgICAgICAgICAgICAgICAgICAgICAgICAgIC AgICAgICAgICAgICAgDQogICAgICAgICAgICAgICAg ICAgICAgICAgICAgICAgICAgICAgICAgICAgICAgICAgICAgICAgICAgICAgICAgICAgICAgICAgICAg ICAgICAgICAgICAgICAgICAgICAgICAgDQogICAgICAgICAgICAgICAgICAgICAgICAgICAgICAgICAg ICAgICAgICAgICAgICAgICAgICAgICAgICAgICAgIC AgICAgICAgICAgICAgICAgICAgICAgICAgICAgICAgICAgDQogICAgICAgICAgICAgICAgICAgICAgIC AgICAgICAgICAgICAgICAgICAgICAgICAgICAgICAgICAgICAgICAgICAgICAgICAgICAgICAgICAgIC XdHVDkXFIdTBXaOKZmYESqJXa0S1ctQEKwNFGaGI9b QTa9Vl7+FBrASuLhEBX9feLiaN2TWS7rj9GjWRljFXKgy8SpWHw0FZ0UGWZbPSfqDZ8IDHuvrx3RGEKj XOFybIWNa7hrUiIpYTC3REPmVwlsRS2GZQEkL3vssgPxNBRrLUPZHZgnYKMQQFueZHTSRPUkBNVpXxKs MxTbBFUmGQCoWKAEUKZ2CYDiOdPbEPvfXM5Rb6RksZ A3DQo+Jb7BIF1nj9ZtNCo1KxIjSG2zqk7SXGmTIiMqE1HfryL6RHK5TYOwDw7UPPOyUVLotOE3VVSyJO RHAjOjF5UerV47UWEGTh6+WHqplrTkWygPSgJ9DXOdx3JrKLe0GQ6UGBPsJEh2fJXjIHPxF1Txj8KzWe 72GXCfLjtsW8CjUT20vERgEPDqoaYtgghzv7UfZK0Q QZH8OHooABQlItWeGFIqVCrvARUVFLxTBxRhZ4Ooe8NrHlG6QJBaQxNjLYxlFIVmTuN8NX22wKnrED3X TRCpTETuAM21RRIoZAKaNr8ZBh5KEcUcRC8qkh3TGRRnRWGtVdhIXve1QMxlIP1NmQQrL4RfyNWqx7bZ ClWgM2OCVKSbWVZuVg2MRMWaIdDdKINmYWlvLP2vSI QaESMKmKnqrgI1BX0QPO9tlhZqMY0RCqFhNt6lCe6TDcBdJ8SrS4HfBQOuHUKMDFxkZP3ZNIleMP9ySQ 9Ur7ZFaFLbdE1qfe6KRJBhSUTgLxumuk3AOybrQ4I3qKcbVIBpXCQwTRKGHXuhCT3AIETvBSU8FUZ2Rx QiJYDSFpQfW29oWI1NX4Ook83lTjD9NGQyOhRnFGze AX57pJerwtPveAJkxNzjGB3FWj6+YRwjceLeZtjJJtdkOJHQDdXiNZVZPbStAPAeRJReEKLiOjH0PeBj Oi5TMKYbVNNmNFVuOaFtKUTsASYuBPhqYOAdQIA2UYA1OUPiXXMkQJ0MNtUbWPVaYeo6AaHoRTFyYTDm ep6OOMFtGMEpSZI9PyLkZAJkMAMxCQaqQTRqHQYbPN TrVIMpXLNjGP7RIqXhJEWpYSH5ScRhUAScMYBpkp7ZYFOqBTEiJFlhOXHtCVOrETEbDWqqYRCbLNH1ET OhKUAeICCwUE8CDzRoDADhMSx7UUlzCTFiXMSudv1YCEJqGXToYYHiMVQrPLQwTPHdVGlaCSXyERG6ME J7NNAnYMOxJL4BEvMhBEBzMAZoUvHqCIKzZHGcmf4L YMYvFKCxCIgdQEYiQQUtEOZfGRifUGBpRNItABYlEANsJUEuIT0XOiGxMDKsJZI5RFQlBWOjEFWlkj0C CYXvZZTrTHL0YSUbWZRiZSObDKlbPFNsUKL6EPN7APBqYSKxOH5RNkFhMMUlQNX7DZDjNDOgOIVgzf7W HGPyGLMrWzI0BEHrXOJjDBOhNLqjQVXoZNG4Rya0GL SsNGHsSP4QVfYmPXDnCEM3MzDaIBYeEOGxeb8YUPWlCMTnZnthSEDaZHWjYYVcOVsoDPYjAAT5LSUpCA VeMQExZU0GGuSnBKHuGLvaBRDgGVFeRUEtbp4NRCDcLRSaEMO7ReFfUMIjHZNtQIvtDQRxPFX8MGNjFV KsDWIfKJ7YOsXdGASgMWz6GEhzPDHfLVYmuy2ZIMZh UOOdQKCjDaMoZYNbXUEpJEttIKBeHIIuUZG6YKNnHPVnGR1JIpOaGXZlBlRwMEXwNMIeUVLbzd8HCHKd AYHkOOx2LhHmSNAlEJXmYGmfZQSzGQEsBKUkABJzNSHiNL1RRdDbOEMwTmMnTCqrCFHkQGYijf7SVFSa TXVmRTN8EYBdRZRbTVZmMQghEPKzTFP1AYo8KYXhZO CoTA2UFtCqLVUcZuItCBNcMWVrEEVgbm6IIMPaYBTtUlM2QoOtQTNgDKPbMSqyUCHoYWH3IMwsLOIsMZ NqDG5UDzDyUQYzEcq8PkKcONYkGIVxtk0FGYDnRXXaAeytOiHwSNPhTHKrOWmwILDnZVT3TIL6REAjBT CvQR8DMsUwDZQtBckcGHQcQPMsLFCexf0FWSAtUEEu FPp3JAZcPAFaXSBmDCdzMDNoTDH0YJXoATAqHMRcFO2YDkMzPYHjGBKuXTMuJYQoNCDfiw4BdTDtlQmk yj5EIQkVRb3ZjOaeYFF8PZqpMf3hzWV2MXVaOUDQVj4JxaIaXSPvSYUVKYfpPEPkBWx9FEEoXek3Q5Lp LnCpXfZ8QKNpKJKoRQCeOPM6JzQwVuB5QJW4BQDnWM s6LhRxJWN1ZYm0ALDbRFD4C6A5OoakQ1G+NM9mBAp+Sv1Pi8VylvW3pcIaPHk7MHXtZH0AMDNUZ5RAVm == ID Date Data Source [id number] 03/24/2021 06:29:29 PM EDT [facility] Name Value Range Interpretation Code Description Data Arabella rce(s) Supporting Document(s) Nursing Note [facility] UTRFGq6tGbZIMbNw42/HIJozXFFbb4AjAWypVPl0MBqsLTNwV7GrLLL4nO6mCRI5PHwQGvIjMyWeXWX1 lbm [file] K2MXC3EVYyCHJoMiPtIF9OBf2AWrD4YUG6gAWkYt4ZEnStZXGKRbNoCV9XLSa= ID Date Data Source [id number] 03/24/2021 04:19:00 PM EDT [facility] Patient: SIENNA FOSTER Observation Re [facility] - Physicians/Mid Levels [facility].VisitID: [id number] [place] [address] [phone], [facility] [place] Date/Time: 03/22/2021 13:25 Weight:72.1 kg (S). Height/Length:68 [...] (coma)Seasonal. (Electronically signed by Minh De La Fuenet 03/23/2021 18:51) Name Value Range Interpretation Code Description Data Arabella rce(s) Supporting Document(s) ID Date Data Source [id number] 03/24/2021 04:11:33 PM EDT [facility] Name Value Range Interpretation Code Description Data Arabella rce(s) Supporting Document(s) Progress Notes [facility] ALRZLo5rMmGSHwYp58/GGFbrBWIsr2YkEZkxWRm3YXzrZXRaA1KhFQW8bM9fJZO3NGbXLbCrUsFdRNP2 lbm [file] KaWxQM0JNEk= ID Date Data Source [id number] 03/24/2021 02:38:34 PM EDT [facility] Name Value Range Interpretation Code Description Data Arabella rce(s) Supporting Document(s) Progress Notes [facility] BOXUMz6nShLXSaKb08/DFOxsWRVnk4TkJOtvHLj3UVonBCLgC2JxSRE9sR5lZVN6GRdPNgFpQzWhQOF3 lbm [file] YcwF3FB9YMHFmTDCWNZo2BTEUrL55RLXSV+2FvJC20 IHG0YW1Q+qOvsGzJJmHcUTtsTIV5xX+1jL9GhiXCgAcRSfmdcOisY+yHWwJFHbRSV+UqW+aeBT4A/oP6 jyQHP40CdnI7/o/pOU9GANN2c8v/pSU0OEfuJZuQ6RchZ8r/GT6iyYi92lOoJhuEnDZF3qO69kH2MLlG raFXD9Sv8sQONVxiL/uceBrtOgT/l9F0SL46QWWu1d pWwzawv+sI+W7b8o+KAa0sxn+MegeXpS7z02zDL6I11An+rNyfa78K04cvrW5G3BQMWqCwbxbV/xLUec /7Wu9Ss9EjRIHnZdMp8dYVjwRU5v2jeZh6XpjCcEF1J1/Jby3rEh93J7q+oqK9oW3BPCursRm1RGqOtV YT4iVercKB4cTqwUiP0pMEw56Sp74xtm+kPgUcwXpp wMtCP1fhFyFlb909vw0eQWL2Yw6HJKSmIoZC54NA4p40gr+h+9Xb33FnMy3j5vepbkLyD6UrXCH9zhT6 j+z+6qidAr/B1Mb9ZOMur2Jg5FwscM0J9rZasDY+STtJ2At+M+QtXwjY7cZtjntkaAU5gC1FabaBT7kS qxncw+keYKHLRSmuluJvqMxVkyhfnDHafxtLnDuuQ9 1dfv76W0/Ph+/sGyArmYu3v7O6mOMqdZItHSm4MWscXD6pG/99kIZnZ+T0DuWOLAZMX71v51RJCaG5KU fjDwzqDvrBm1TcqDhqKpITGdIjFCWw8TN5bKg8a+j3Ip6lqqF0Vl9xOkPy9HCQubtNqOvr0Ac58sxYRM niOkk67RQFOX9w6KcnA6hlg/l5jCecKX800CCHHW35 RnEXvVtHx3lMlrtlUKI6vBdqD+e8Z4HZ2trE+jQdHWgj9te8vCPG6RHSE/C9/hIaLFWSLv+y3idi2PLO ec5C505o9zzlIwdt+CjjJZWQRAj7h0J4jf4bkb+lDrD/xkjNzI/5W8VQObJlhoxGK4v90jyPqPiTpXiN ehEwWvn5XsW06Omx3WaAB89bngMuk1o69+JdnrYH+7 dYZW8rQduOey3sOTBPNvs9W0w3mP/4ByAt/y2bH+LwQO22qF124yB45UZGwK/sD88KnsKcckdJ10dG41 4ELtOja8BldSnFe80Ui3i+V5asjvhoxre5pZ1rfHU4sLhCvFxkZepcOgYEcGJc0s//hqxQH4Ga29Aqj/ +bo19Bbeu3RJGdo+3fyfVLpwA3FXBttLvTIutoz8/v BIm//1MEZJm2RzDx3DAJ7K2mK00OXsJ3itS5LU8YQlpVXcQeKw2Dw4rFFk0thSuvGH8LRvZp8qY/A/fisher weir Tlnj70K/WN46dXiKyFqerLlHYcj5fBPCUpS3N04/MStcgV2MbrUJDQ3II1fbP6JzrQR9w087q5aHo7hL XxnWuhx+r9E1bzaJcaPdy513s2KIQ6kRiK3Gf5SIB6 snVeJZOOKpKD14yCFL9btgyN5aUqyCfbwX45cePjJcuNKNK5E/uy0K+8eNGIfxlU51UmS/EBeQUdg6Ne UaXyDbd88qv1g18Av2wh0EX1roBMSQmj7miDireg73I2twQl/oS6tyD0nGfuCfsFczSXB1jNLKzApAGQ 0aRlzGicYYcUwl83/bGPwY8f3Qx6BI53iUusX8GLdJ iEc1o2uEzQn8kC/cPpaFCqAzCw8MuNQygocZah1pUSDby7rYofVgF9o2jbK7ONwcwWoHUQfstHq8rK2M M1zhd5jI5Wrh03GXDOeRIt1gQCii6v4dIvUjBk6ecyx8fdspsXwSqgr4AX7osAa0xBIB60s3IDajRz3s CsqmFWuARWIim7voVoRCUK/MvhSaEuNpsKmeh5XMqm 9DxnsCRkw+wpPcVshgg/ILGTXmF+zImVSoMnaUYl7Fa8tIrF4vh5O72cIcwQkFugAVkcfIrCCkUTG/YV QTLpD6gPjOBQy0dTvRYGJ3FeKwqWXZ1VsPKlmRnr+idqJ2eu6NMqbRNGgQMFaXtft1J/w3zTSzFG0BK3 fOAoR1LKEKnsm+YYVVjaIGJA+SJINKWcARErVUVQ25 [file] ICAgICAgICAgICAgICAgICAgICAgICAgICAgICAgICAgICAgICAgICAgICAgICAgICAgICAgICAgICAg ICAgICAgICAgICAgICAgICANCiAgICAgICAgICAgICAgICAgICAgICAgICAgICAgICAgICAgICAgICAg ICAgICAgICAgICAgICAgICAgICAgICAgICAgICAgIC AgICAgICAgICAgICAgICAgICAgICAgICAgICANCiAgICAgICAgICAgICAgICAgICAgICAgICAgICAgIC AgICAgICAgICAgICAgICAgICAgICAgICAgICAgICAgICAgICAgICAgICAgICAgICAgICAgICAgICAgIC AgICAgICAgICANCiAgICAgICAgICAgICAgICAgICAg ICAgICAgICAgICAgICAgICAgICAgICAgICAgICAgICAgICAgICAgICAgICAgICAgICAgICAgICAgICAg ICAgICAgICAgICAgICAgICAgICANCiAgICAgICAgICAgICAgICAgICAgICAgICAgICAgICAgICAgICAg ICAgICAgICAgICAgICAgICAgICAgICAgICAgICAgIC AgICAgICAgICAgICAgICAgICAgICAgICAgICAgICANCiAgICAgICAgICAgICAgICAgICAgICAgICAgIC AgICAgICAgICAgICAgICAgICAgICAgICAgICAgICAgICAgICAgICAgICAgICAgICAgICAgICAgICAgIC AgICAgICAgICAgICANCiAgICAgICAgICAgICAgICAg ICAgICAgICAgICAgICAgICAgICAgICAgICAgICAgICAgICAgICAgICAgICAgICAgICAgICAgICAgICAg ICAgICAgICAgICAgICAgICAgICAgICANCiAgICAgICAgICAgICAgICAgICAgICAgICAgICAgICAgICAg ICAgICAgICAgICAgICAgICAgICAgICAgICAgICAgIC AgICAgICAgICAgICAgICAgICAgICAgICAgICAgICAgICANCiAgICAgICAgICAgICAgICAgICAgICAgIC AgICAgICAgICAgICAgICAgICAgICAgICAgICAgICAgICAgICAgICAgICAgICAgICAgICAgICAgICAgIC AgICAgICAgICAgICAgICANCiAgICAgICAgICAgICAg ICAgICAgICAgICAgICAgICAgICAgICAgICAgICAgICAgICAgICAgICAgICAgICAgICAgICAgICAgICAg ICAgICAgICAgICAgICAgICAgICAgICAgICANCjw/gNHxU2vxuICjvhE9H6gbYl2YJp6RVU0od4RuMVYt QJppuhJvNwbRHoUzQEFtRxrXXfr8KMniLX4QbFCkD3 LxX9FrKHgvCL8VOQFwCEFkgWGiKYXxTURbTzM4WLDrOBbkTT2SkWNuTQzuYDEjZJUtIfPhXQOoIDRkCZ UfVFAeNVWNSZ3ZSaRaS0DctC86EFCPYk0+MSgvyuFtNrnXXgT3DAPoo1LxZOs3PR2XYQPbYgxti8XqUR RqHDBLPLrjDJ3THSG1ZJY0HQXvAd4ECKObV969noUv QE4SFk4BHqHbCC7zms3ONMWxQTKvMurNOet0REvgXJ6NgJDmOQwZcg4jquNbiaSLg5AlbkLimGXLwqav XZ5pU1RgbYk0PFUXACLRPU2bZEFkGG6uMk6oLNMoVYBiNmF3CCQQNA5KKZFxCTIekMCyKKGaQEFFTF7C OAyfQIF0XtttnfKcyFAoTLqeQQ7ESNRfclUfNDHlMH BSDQo+Ju3WYD0wt1GcWKw1NwTxTP9bxa3FBChJCmOjL9L4mOXwH4K0XLjxJs3RLFFkFCTiTCUqHALIRI eqVH8RHN8hhjX3OZ6CfIEqCKNhWLIzjJZfMOw3Q33dfNYzNWrwTN7DDLE+Mau+Dd7OOCTkUDBnQXKxVz LjEVJKJgRtB7NwL2ZLx2MhF8RtXH56dCczobRlRTmp JW9NZM7rKODlFTBJJG1OxOIiiY6lguW5LPBdGZOTNlTfL11fzJQyLPEwJITxXSDeSn3XXPBwX8JlieXk lGnagnAqDJKxMTUCWI5NDDfegyPiaUWgtEkbYQ61kJseLT0PDs6SYhQeRJ8rim9GyNSjYn1KRYZ2Ga8K OOEwFDZpKBSsSHO4XMQdQuDpHAlkPWLrGDTpCRJ6DW WdKFWfKY1CNfWyFMFcCGt0ZCSmFSZaBGLnpt8CGGNeOUP9IJK8MADpCNYtANEgLYsaWTMvPWDjNUE4IT YeUIHhHW6UEaNoKOBeFNC1WVlhRTVfHWTium4IFGIiKFDvOaLbZaFhTFQtNEYgYNjiPRJhZJS0YvA6UY UiULIpRM7OWvYxEMEmYYA6FylcHHVvUOXaen7KSUWe TODdFRIlOOFqLXIrNVLjTYhfSEJrADA5CuH3OVMzJZXfKI9XAcGaTKPsSWz1SdBbJRUtDZDiyi6VFXEs TMTpTZjyFAAwJGRxBHCxKHttLYFjISQbTZp4BHFfHTTzZY5EDcAwTBKdWGHoJQfdTFXpWCOmlr4EXGZl SZSmPEC7SgPzTPVfOAZdKXahVXMjTRVyJqC9QFJdNY QuXH0BOkEkFLReSYP8HyZwHTZrBFYbnm8UXHPfMVJtAmIsOgTwPRCoEEWmXHzvDOFkBNK1NRX0HYElXL GzDM6DVxUmVZXaKsOqTQOfNUIlXODhfl0BVMSgQIXcZFC4GCCjOWQcDHXvLZsnTPLmJPJ6AqQkGEJeZX RoEX7QGxDhSMIiOrD9KufyAXStZIKcsv1KXPHfJMRj AngpEXKjVARvXPKbDIasWMNgPKJ3QMPlCQFyVRDwVA5YKeKsIQPoKuheHCweVXCjTOGlnd3BMBQxQKZq ZDKcSGAtDJAnWIQhSHyuFMLzHRS6SyV7NHFkSYVpFB5NSaMcSHTsTou1QJboOULiCILjbx5UGAYxTVV5 YEnuANOxWKKcPNMpAFkwHSZdSZEiZMN5HADcOFDtXZ 3SGjWtPFJhHEOhCRAiNPVnVZZufr4FSIVsGWV9MhT6IHNoAAKeVTPnHBnuXSLjRXOnSiXtOAMqTVUoAO 3DCsJiZQHfOEO2MjErZEDtUHJuge5HBVXsFPS4Okd1KoNcJGHpLRJeXWegZSQpXHV8GFA2ZYBoJGXrUT 2BTxFhJZStTFf9UFOoOSBdWNZwue2KXAHbPEG2IFZb EEVtMUEdIHIfFNlaPYWlTOP1OZCuHWXxCKRtBP8FRdQqZXRnMRt6JdAmWFLkVFHgal8QQBOaIUK2HIob UHYpRDMwRKCiOAvdQOSjLYGjRjTwVQBoRLPyIT1VTwLlQTSgIEA6JHwrIVJaACKrep7YAGVmWRC9HMef SRAlJTSdVEKtGQbfQNFlZKMqXFquFWGdOHPkUF5UYm YoJHgsSGOLLrb2KYmmN6o2HTN7Xz6QJ8Srw6NkFOSzPFZEEFodGS7enpQdETIbMu2AX3jCKechJnFpHB U2VUApHKG8NqQuRHQ1LKC9S3OsAYBqLjS8Py5tAGC9CsQ0UhFyDGT5NpasLNC9UPQaVtyaQIA2YEHbCZ OpAkNcYM3TFe9IJtB9MKQ7mBIqLh0WDMDqBnZQHeMbYZ2ZAYv= ID Date Data Source [id number] 03/24/2021 02:35:53 PM EDT [facility] Name Value Range Interpretation Code Description Data Arabella rce(s) Supporting Document(s) Consults [facility] QQJCRn9tDbEFYwRj45/IGIdaTCZqv2SvDArvCLp7KAlyPDDyR3EyUUB6iM1nEAQ2ZQmVZzBsEjKfUAW1 lbm [file] AgICAgICAgICAgICAgICAgICAgICAgICAgICAgICAg ICAgICAgICAgICAgICAgICAgICAgICAgICAgICAgICAgICAgICAgICAgICAgICAgICAgICAgICAgICAg ICAgICAgICANCiAgICAgICAgICAgICAgICAgICAgICAgICAgICAgICAgICAgICAgICAgICAgICAgICAg ICAgICAgICAgICAgICAgICAgICAgICAgICAgICAgIC AgICAgICAgICAgICAgICAgICANCiAgICAgICAgICAgICAgICAgICAgICAgICAgICAgICAgICAgICAgIC AgICAgICAgICAgICAgICAgICAgICAgICAgICAgICAgICAgICAgICAgICAgICAgICAgICAgICAgICAgIC ANCiAgICAgICAgICAgICAgICAgICAgICAgICAgICAg ICAgICAgICAgICAgICAgICAgICAgICAgICAgICAgICAgICAgICAgICAgICAgICAgICAgICAgICAgICAg ICAgICAgICAgICANCiAgICAgICAgICAgICAgICAgICAgICAgICAgICAgICAgICAgICAgICAgICAgICAg ICAgICAgICAgICAgICAgICAgICAgICAgICAgICAgIC AgICAgICAgICAgICAgICAgICAgICANCiAgICAgICAgICAgICAgICAgICAgICAgICAgICAgICAgICAgIC AgICAgICAgICAgICAgICAgICAgICAgICAgICAgICAgICAgICAgICAgICAgICAgICAgICAgICAgICAgIC AgICANCiAgICAgICAgICAgICAgICAgICAgICAgICAg ICAgICAgICAgICAgICAgICAgICAgICAgICAgICAgICAgICAgICAgICAgICAgICAgICAgICAgICAgICAg ICAgICAgICAgICAgICANCiAgICAgICAgICAgICAgICAgICAgICAgICAgICAgICAgICAgICAgICAgICAg ICAgICAgICAgICAgICAgICAgICAgICAgICAgICAgIC AgICAgICAgICAgICAgICAgICAgICAgICANCiAgICAgICAgICAgICAgICAgICAgICAgICAgICAgICAgIC AgICAgICAgICAgICAgICAgICAgICAgICAgICAgICAgICAgICAgICAgICAgICAgICAgICAgICAgICAgIC AgICAgICANCiAgICAgICAgICAgICAgICAgICAgICAg ICAgICAgICAgICAgICAgICAgICAgICAgICAgICAgICAgICAgICAgICAgICAgICAgICAgICAgICAgICAg ICAgICAgICAgICAgICAgICANCjw/oTXpK3cdpUDsyjH6O6cxIz6VZa3HRN5gz3RkZOInUZrqjiHiUmjG HkLkSSQxZgwIZuf7QLjiZS9WsMEbJ5FuZ4MdLDjiCS 5NJRErXBQbjBPsHAVeECHtMxP0BAMkDRtsAF0NoPEhSVoaEONaATXcNcWbSBTkWMWkDKIbHNRyEFKXYW FjKRDlQoScNODxSUKoNBdsTNASCQO6UYYbPmQrKWnfGC8Lw5MrzEM0SSk+Nh9PTT8if9OhKAw6BwPsUA 6mdi7ZAVqHDlQcX1XkpvT8CNVnIVPkXs9WIWCbMJMe jXK5BeIeQRCTNxGmW5GfsD92CFCFMc0+BBolueGvDvuDMmXtDAWdf2UzUTp0EQ4CGBBnTJq3uPBmV49m f1WzsXNbPupfA9jkyMmneAGMNRsdLNHikfyhSORbIMLxHS1vKm9lKJKpQMQqUqLyBPUESQ3XFDUbDENe rTWfZSAeXLJLBI9ANEjjCCK3KzzhmpHglGSyXFxeBH 9QYXJlbnQgNDIgMCBSDQo+Rx5OTE7tq2JtBNo2UMQcQF8vzf0XOUrYNqWeZ2P4tTYdX8N0BEzxYu0RNJ YqBTUtGKJoHXUHGLekZM3ZLE4rnaT7TX6DvWHzOLVdYAYttHMvBJt7W91kuMQkWWsmMQ1QLQA+Mau+Pg 5PNGGdCGGoXJZiIqYxVZOIVqUyQ7VdS7MFv1FrV4Xv EO34pJqwnsHmKZlcXK2YTF3sHVViNOQYLD2ZkMPhoE8whuB7RpVxCEJRSnRtM55ucYCzZKVoYHOwALYj Vc1SHQSyM3KmgyXmaHfmwgKzZZMxEJDGLM2PGAlxleDyuKMluEqdLW24jJmoHH7ZSh4EHbKbUS4biw6P wXUuDn5KTAJ7YU8MWQNoNIBlPWYoALA5WZWnTcVaSP yhCQRfEKEfRKG4PABuDCBwQI9EBeHrUKPcJlqfRWliNPTmVLQnow7CWAFbCAH9BOGxYlWyJMBkTUPwDM qmRIXsCXQcCAO2DZZlBBTfJZ5WNlHkKZZfJOSwMeOvYRSiNEDwlz1QMLGgFVImNhD0GVImBHRrWDZdTV kxLLLvHKC4MjgkUNFaNASuOP7KExQmPKNeDBS5ZHCu TEBkNNAbhc6XTOTiJTJwTBW5DxFrIOAxGOEmRWyeDAMoDGV2TTq0FPWpAEGxNU7VJnJdBDGyAEF9YXwx IVHsXIKqui4JMCCmLZKbAKZ5NRNfELRcSVGlTUfsXBFcVBLgPRV5OVKeKGRjVV4DViSvZKYpZHF2PPCj XBToJGOeim7KBQQvVEWeGEV3EZYzMGIqLRAzDCawCJ BlXUC2YHx9LWGhFFNeQD5VJhNcSXMaIAwfSEUzWGWtBBDlrg3SQYUdKIUbKwX5JZTaZOZlKKMtZRquWC DlZZA4ZGV5XPGmDDQgAC6NRtGuBVGqQBpmHpXkDFFzLYOxds6SQXUyNDJuJBGsSFYtLQHoPSFlVFrcUY GbBHK4GZStUAHnTXGrJO7ZKmWvORPoUWu5SOSzVOFl CGWdjr7DGTClVQNkMOL8LMYmSTPgUPAcVVnxTQUcNYGdHgT8HAPuRWTgDE0ZSjItPDPjInZ8MXMxGBBj UNXupi7XKLTjIYMrYMerYZFgRJHvNEOoIOxlJCNiGGSkIXL9CMYcIZRbXQ2VVxInNWBgSdYpAYPeGEXt VTYfxo3XEDKjBCCpOlR1IVQmWSSmCDJbXJywNGGnIY HuCEH1FWKgRENwBP1GKuBoZXZoKoB4VZJwAOQbYORnrg4IDMEtWVGfFPUnYDXuEWXlRIMjALmpATWfJC M0UPO4BIOjYRXxWR8BBdXqHAGcInL8NQInLPRtKHPckn8EWGHbTTOjUOPyUMRpAKYdDBAyEHhbRBTnWO U9UzE3YKIoCCSeZE6YObHvBGWlVwz6CXwwQSVgKSJr mr6MCAEcQQFwJOQ3PSMvOFHnNXZfVNshWGJvDFH9RzD1MIEsJARfAK6DGpVnAPQeFvf7LVRkQNGaXWMt sb7RAMGdAIS8CVE5CLGrBCSzSETfZWqdOOKhUMJbHaEmCAFvLQQeBL9RBgCuDDXsLBZzOShiTFYiYZMt qn5JqFGekHowbg3AJBkTYt4LnYjqDCN8NCmlSm0dxF O4JLZnAAQVWc7GlmXcBNJuJQLYQTmxIMIjVMxoSIPhNTR4MRXtZRGjPTF6MDN5BPXiZfGnUBCiZhN3Zm N9Z0K7VkUsCGDxZnI7WvY6UehwBoo3VeK3YfUuGwOhDlA+QG1pJNo+Or8Se7JjytW2lhPmDXl0IHYvBK 3HMQJUA2OTBq== ID Date Data Source [id number] 03/24/2021 02:16:15 PM EDT [facility] Name Value Range Interpretation Code Description Data Arabella rce(s) Supporting Document(s) Care Plan [facility] OEJSSe2sTkQUOoMx34/BHTzdVRLla3MkPEclCQi5JOzqCRDfV6JbGXK4mN9mIZT0GIcGAdAxAvOxHQS9 lbm [file] Cj4+GKxmaEEuaKfbHZRPZdJdMTH7KQjqAPLZRg4W ID Date Data Source [id number] 03/24/2021 01:20:24 PM EDT [facility] Name Value Range Interpretation Code Description Data Arabella rce(s) Supporting Document(s) Consults [facility] WIJFKk5mYwPHXiLr93/YGTtrHTWxw6YaNLfiYGn9STweYJQlD0GzGGP6lO6uCHX5FUhYDbKoCeJqYSK5 lbm [file] BSDQogICAgICAvRjEgMTcgMCBSDQogICAgICAvRjIgMjAgMCBSDQogICAgICAvRjMgMjMgMCBSDQogIC OwUFOcAaWeTuXxCFKDQZbzDYRfSQTdRgLqLxauVOPEKr6EBgBqGKRjXY4lfjFfjSP7ROV+Rp8QKQAbDB 1FvAWDL9RmwVNhGLumV2TGQV2NNCU6BU8FaIGzCO3W gEPLV9RrjMHiQz7yJPDcj0LuYn2kM7IASUWUAUWzHWwdUGnhXIVsRQp8D0U5YKIeM6ZWW071lRMasHi6 Ks8dN7QXCPlZMqPnHJgpHVheDAEnGNu9O7T2MIFoU3NPB4LpUrOnsjDaM2C+IfPeMCLUPH8TETVEWMs5 Q7G7pLKgU0W6qEtXuRG9UP3QBJ8WvWLfnINeg86+Pi JTDdQlLIXkY4CHVJLBWuWxUUscEMbvXXQpPHk1F0H0YZNtF7EHS8jdR9a7MA2+ZzMWAuNbLVRrOx8QGk XhKl9OWxByFV9nju7AEqMxOZEiQxlFSnj8Y0lwdra3jSCkFeE3K2A3OcJ7kVFcHQ9WM4C6hZMnOGK0DK RhdGE+Pm0Xz6BxLXQePAn9C1yuZKHkCPSaYyZesR12 J++1vplwcAW9H4h4HUCJpOCtfVaFicEzW6rKMXZ1p4A4GYa/Yh5EDIM5rAb3eQKgUULfKNh6tX5arAo4 NfRsSM70LNFdPBeyeG0yVuh3W0Bqi5MdUm1lXe3kbAFiCc8MUzJvELS7noDmKoSPHxQ6sVkfzjrdMJC5 Z1u3fFU3Sa06l8mouqZve3NpXtT7DJoaWRAvZqWcha YcJHJ1hoTsdZ7nnvBjAb0RWUUhXRedmlIkXiABIj7CQeKuDP29XbitzL3zdHE+DQogICAgICAgICAgIC AgICAgICAgICAgICAgICAgICAgICAgICAgICAgICAgICAgICAgICAgICAgICAgICAgICAgICAgICAgIC AgICAgICAgICAgICAgICAgICAgICAgICAgICAgDQog ICAgICAgICAgICAgICAgICAgICAgICAgICAgICAgICAgICAgICAgICAgICAgICAgICAgICAgICAgICAg ICAgICAgICAgICAgICAgICAgICAgICAgICAgICAgICAgICAgICAgDQogICAgICAgICAgICAgICAgICAg ICAgICAgICAgICAgICAgICAgICAgICAgICAgICAgIC AgICAgICAgICAgICAgICAgICAgICAgICAgICAgICAgICAgICAgICAgICAgICAgICAgDQogICAgICAgIC AgICAgICAgICAgICAgICAgICAgICAgICAgICAgICAgICAgICAgICAgICAgICAgICAgICAgICAgICAgIC AgICAgICAgICAgICAgICAgICAgICAgICAgICAgICAg DQogICAgICAgICAgICAgICAgICAgICAgICAgICAgICAgICAgICAgICAgICAgICAgICAgICAgICAgICAg ICAgICAgICAgICAgICAgICAgICAgICAgICAgICAgICAgICAgICAgICAgDQogICAgICAgICAgICAgICAg ICAgICAgICAgICAgICAgICAgICAgICAgICAgICAgIC AgICAgICAgICAgICAgICAgICAgICAgICAgICAgICAgICAgICAgICAgICAgICAgICAgICAgDQogICAgIC AgICAgICAgICAgICAgICAgICAgICAgICAgICAgICAgICAgICAgICAgICAgICAgICAgICAgICAgICAgIC AgICAgICAgICAgICAgICAgICAgICAgICAgICAgICAg ICAgDQogICAgICAgICAgICAgICAgICAgICAgICAgICAgICAgICAgICAgICAgICAgICAgICAgICAgICAg ICAgICAgICAgICAgICAgICAgICAgICAgICAgICAgICAgICAgICAgICAgICAgDQogICAgICAgICAgICAg ICAgICAgICAgICAgICAgICAgICAgICAgICAgICAgIC AgICAgICAgICAgICAgICAgICAgICAgICAgICAgICAgICAgICAgICAgICAgICAgICAgICAgICAgDQogIC AgICAgICAgICAgICAgICAgICAgICAgICAgICAgICAgICAgICAgICAgICAgICAgICAgICAgICAgICAgIC AgICAgICAgICAgICAgICAgICAgICAgICAgICAgICAg GXXgWVYcFUb4N3wtGMVhXXCbMC6zXIo2Cd7+GYcORnErZGD8gtIkhG5TNC5bp9WlWUftNOQxg3OiTGa3 SL1EFGZzWBmvQG5NXQqlee9DZYYbCNMeeSXDe5ouYjSeOKG6UVFxGdpkCU7YEXSzN6nsmzOtLCLhFBFY UEfuRMHDJTszITHLJIQoZUCuTgIfMSxuQE0Bn2UxpA A0DQo+Cy6UHG0ic9LvZQvoQjIsFL7qri7BNZyYOhVmK8KxsaD3EGWvPQUmFs5LVAFpPEOwhHRzQnHpGY RPPgYaZ4RzhD08HFXMQe7+JIezneNzNhrXUdYpPADak0ExTLq5ZR5ZNXWiBVb5kILfY13if5FusCPgHq wePKX7UODxfkOIKqOXwoV6SXjuBGTzTGBcGJ0aLa5o WYNzVYYpBoY5OPJNDY4MXLIcYXGmpPLmEBQyMVGYMR3WYUenZNI0OeikevPizHOoAQpbLH5QINFldjOp MzIgMCBSDQo+Od5TWA2mb7FeMPbzFQZsTY6yib9OAEkQWmGsS4G2fAChD1E6ITgaLo0CWCKgDZMeAyBb SDXAAEybQC5DNB5noyK4II7CpFOrVKOkCUCmuFBvFG e2S38hpQUqHWorIM4LFML+Mau+Fy7IRUBsGIOfYHRqRcDdKNLIWzJzL4ThT9UQo6HlZ7CzKS27cXlmln ZzLLqzST4IUD5oBGUrACRGOL6HcLXplJ5nzrKqEaJjCFGFIrHxP27thESoBQUtUVWhLDVpFh5UYPFtX5 ByjrJsxNflgqApPJSrAKPYKA6QOGtsivRewICufZnc LX62zJqzAB0XRg3FXgKnXK1hnn0LbVBdXz9MIJGuMG1WDZBtVOBgCZUhNIW5FYToGyFwSQujQSVwZAAq TMF0JJUzNXBaUO0GHsGlTWKaUvUjWNKeZPUdGTTkrd4CZYMfHJRxBtV3QULoQGJbTYVlKKovQUAiGVNk ULC2CXZnVOEqBT4LExLsAHUsITD0LeYlTZFdTFLtyb 2INBPiDMObPxq0XKCgKLPlATViHMceZJDfATY3KQE6DVNiIMZeKX7THuQyLVGfVXluUkxfDRPwPMHodz 9BTSJsQKCuDBCoONPaLYDwWPZuQZtzQBNcZEDzXfJ2CEHuYCBlXL5CLrZyEDGkLTC2LuQyOCYqAMIsif 0HGUPeKANtEiV1DxCaUMIvNVSmNVpfICPfYTA6BNTz TIFbHGSkTP2UUjJvPEQfLNGjQuAlWDKhJGVjoo4IVXAkFPVvLONeJHRpJFFhHNSmOXbhCWMbNOI4SMkn ZSKwHZAiLV4GQiAfXIIjWJW8NlwlRNEkKKHbng0FRHFqFDQtXWp1ZPUaFQDgHIPaCWetGZBkBRS3QKP2 SCTpELQsDH1IGiDoAHVvAVgcXkWdNBKlDRRiyc0PBL WqAWTdAkHwNRDkUXGeWVLnCQzgLVWnVDD2RER2NXAhNFJjSV7OVfCwSBQuIIxaWmBqDBQzBWUzma2RSU IoOPFuEGV0HNSxXDFnNIJhBAidVGHqEIH8WXMgICUiOOJkQF2ASvOpEGHzBVo4TorjUOIiGSNkvl0OAQ WnGEItWMkgQlKlCNLdWXFsRSzxEWMaBPEqEFl3IKGr FBZlYW0CBmOkGPUvOfJoXjVjCJCsWYLfrm3MYCNkCHJuEPI3KXKkCNIwKGYxCHjaKSQbENEpTnP1OOSh FKXzNC2OIpSgAMQlFwDdWJVjSTEzHIHlot9SUMMjFSNlUrV3HbRzCGTqJEKdYXojOIHzKZCrXKJvOHXq EJBrXH2VTtOqCJknLXOTYny2VMuiM1m4CLObWZ1KM5 Qgx8XlRhIdPJBNKLtrDW7ibwCzVQIsXo7ZA8rOOfwvYKKbTWY7JIBcBmI7QBJnCFR9VZWgBwPoKOSzQ8 LuTG4bQPEcZ1HrHXJ0NPJiAQGwVWZtNUfvOWEnKUK4TMM1UCR7XrIvFI9LVm2YYtZ0MOT9sLRfIe2IWt E2REQBLfWcTZ3AADz= ID Date Data Source [id number] 03/24/2021 12:26:04 PM EDT [facility] Name Value Range Interpretation Code Description Data Arabella rce(s) Supporting Document(s) Progress Notes [facility] WTCKIp9nOiATLjSn53/KBXztIOMbt2PtSVohIPv3TYnvQLXhE2JwWHZ6yR2uPVM5NBkBHtDxWvWtIFT1 lbm [file] NxDRL7E0RxYSV9JzC9MLOsGlRoWZ1CZx7BDcH3IHS9cZSoDe6UOvJ7NZKYYiNdEO9KFGz= ID Date Data Source [id number] 03/24/2021 12:13:35 PM EDT [facility] Name Value Range Interpretation Code Description Data Arabella rce(s) Supporting Document(s) Progress Notes [facility] MWQEDg1jSgKDIsUw22/LDMjcOKRhu3RvCMueBTv9TEelZQCtL5ZkMUQ8aY5uYKO3OZaGYgQwWmLhUVN0 lbm [file] 0K ID Date Data Source [id number] 03/24/2021 05:26:27 AM EDT [facility] Name Value Range Interpretation Code Description Data Arabella rce(s) Supporting Document(s) Nursing Note [facility] XLXXWv3hZuDGNfNt96/DBMmlBLToj2XeZHzdQJd4WTnrVQWvQ3NcRPK2wC3pMCP6YJpSLfPyIpShMDV5 lbm [file] IxWXBsGmL5OdC0XxLvIHBcPzGlEF2YCa5CHgU4KPJ4vRNtOb5ITeZjMKzOCwPpED1LUUv= ID Date Data Source [id number] 03/24/2021 05:34:00 AM EDT [facility] Name Value Range Interpretation Code Description Data Arabella rce(s) Supporting Document(s) AST 12 IU/L 15-37 Below low normal [facility] Sulfasalazine and sulfapyridine have the potential to falsely depressAspartate Aminotransferase results. Baseline values before medication administration are recommended. ALT 17 IU/L 13-56 Normal (applies to non-numeric resul ts) [facility] Sulfasalazine and sulfapyridine have the potential to falsely depressAlanine Aminotransferase results. Baseline values before medication administration are recommended. Alkaline Phosphatase 53 mIU/ml 50-136 Normal (applies to non-num madiha results) [facility] Total Bilirubin 0.70 mg/dl 0.20-1.00 Normal (applies to non-numeric results) [facility] Blood Urea Nitrogen 6 mg/dl 7-18 Below low normal [facility] Creatinine 0.62 mg/dl 0.51-0.95 Normal (applies to non-numeric resul ts) [facility] N-Acetylcysteine (NAC) and Metamizole em ve the potential to falselydepress Creatinine results. Baseline values before medication adminstration are recommended. Patients undergoing treatment with phenindione will have falselydepressed results. Patients on phenindione therapy should be tested with an alternativeCREA method.Toxic levels of acetaminophen may lead to falsely depressed results forpatient samples. Glomerular Filtration Rate >90.00 mL/min/1.73m2 [facility] GFR Reference Ranges:Normal Function or Mild [...] of Health and the [employer]ney[employer]. The [place] method used in calculating this result is traceable to IDPR standards. Glucose 91 mg/dl 70-110 Normal (applies to non-numeric resul ts) [facility] Sulfasalazine has the potential to false ly depress Glucose results. Sulfapyridine has the potential to falsely elevate Glucose results. Baseline values before medication administration are recommended. Calcium 8.2 mg/dl 8.5-10.1 Below low normal [facility] Total Protein 6.2 g/dl 6.4-8.2 Below low normal [facility] Albumin 2.8 g/dl 3.4-5.0 Below low normal [facility] Sodium 141 mEq/L 136-145 Normal (applies to non-numeric resul ts) [facility] Potassium 3.9 mEq/L 3.5-5.1 Normal (applies to non-numeric resul ts) [facility] Chloride 113.0 mEq/L 98.0-107.0 Above high normal [facility] Anion Gap 8.1 [facility] Carbon Dioxide 23.8 mMol/L 21.0-32.0 Normal (applies to non-numeric results) [facility] The above 16 analytes were performed by [facility] [id number], ,[place] [address] ID Date Data Source [id number] 03/24/2021 05:34:00 AM EDT [facility] Name Value Range Interpretation Code Description Data Arabella rce(s) Supporting Document(s) Magnesium 2.0 mg/dl 1.6-2.6 Normal (applies to non-numeric resul ts) [facility] The above 1 analytes [facility] [id number], ,[place] [address] ID Date Data Source [id number] 03/24/2021 05:26:00 AM EDT [facility] Name Value Range Interpretation Code Description Data Arabella rce(s) Supporting Document(s) WBC 6.03 x1000/ul 4.80-10.00 Normal (applies to non-numeric re sults) [facility] RBC 3.58 x1Mil/ul 4.20-5.40 Below low normal [facility] Hemoglobin 9.3 g/dl 12.0-16.0 Below low normal [facility] Hematocrit 30.2 % 37.0-47.0 Below low normal [facility] MCV 84.4 fL 81.0-99.0 Normal (applies to non-numeric resul ts) [facility] MCH 26.0 pg 27.0-31.0 Below low normal [facility] MCHC 30.8 g/dl 32.2-37.0 Below low normal [facility] RDW 16.3 % 11.5-14.5 Above high normal [facility] Platelet Count 230 x1000/ul 130-400 Normal (applies to non-numeric results) [facility] MPV 11.6 fL 9.4-12.4 Normal (applies to non-numeric resul ts) [facility] Neutrophils 46.6 % 40.0-74.0 Normal (applies to non-numeric resu lts) [facility] Lymphocytes 41.1 % 19.0-48.0 Normal (applies to non-numeric resu lts) [facility] Monocytes 9.1 % 3.4-9.0 Above high normal [facility] Eosinophils 2.0 % 0.0-7.0 Normal (applies to non-numeric resu lts) [facility] Basophils 1.0 % 0.0-2.0 Normal (applies to non-numeric resul ts) [facility] Immature Granulocytes 0.2 % 0.0-0.5 Normal (applies to non-nu meric results) [facility] Nucleated RBCs 0.00 % 0.00-0.20 Normal (applies to non-numeric r esults) [facility] Abs. Neutrophils 2.81 x1000/ul 1.92-8.31 Normal (applies to non-numeric results) [facility] Abs. Lymphocyte 2.48 x1000/ul 1.20-3.70 Normal (applies to non-n umeric results) [facility] Abs. Monocytes 0.55 x1000/ul 0.14-0.97 Normal (applies to non-nu meric results) [facility] Abs. Eosinophils 0.12 x1000/ul 0.00-0.76 Normal (applie s to non-numeric results) [facility] Abs. Basophils 0.06 x1000/ul 0.00-0.22 Normal (applies to non-n umeric results) [facility] Abs. Immature Gran. 0.01 x1000/ul 0.00-0.02 Normal (appl ies to non-numeric results) [facility] Abs. Nucleated RBCs 0.00 x1000/ul 0.00-0.02 Normal (appl ies to non-numeric results) [facility] The above 24 analytes were performed by [facility] [id number], ,[place] [address] ID Date Data Source [id number] 03/23/2021 11:42:40 PM EDT [facility] Name Value Range Interpretation Code Description Data Arabella rce(s) Supporting Document(s) Care Plan [facility] [id number]/LBGdxTAAak6QzQXzlTSw5IVcmHTGjI1IcXPP6bN9cFRI8JEmNBzDlDiXkOMW5 [facility] [file] AgICAgICAgICAgICAgICAgICAgICAgICAgICAgICAg ICAgICAgICAgICAgICAgICAgICAgICAgICAgICAgICAgICANCiAgICAgICAgICAgICAgICAgICAgICAg ICAgICAgICAgICAgICAgICAgICAgICAgICAgICAgICAgICAgICAgICAgICAgICAgICAgICAgICAgICAg ICAgICAgICAgICAgICAgICANCiAgICAgICAgICAgIC AgICAgICAgICAgICAgICAgICAgICAgICAgICAgICAgICAgICAgICAgICAgICAgICAgICAgICAgICAgIC AgICAgICAgICAgICAgICAgICAgICAgICAgICANCiAgICAgICAgICAgICAgICAgICAgICAgICAgICAgIC AgICAgICAgICAgICAgICAgICAgICAgICAgICAgICAg ICAgICAgICAgICAgICAgICAgICAgICAgICAgICAgICAgICAgICANCiAgICAgICAgICAgICAgICAgICAg ICAgICAgICAgICAgICAgICAgICAgICAgICAgICAgICAgICAgICAgICAgICAgICAgICAgICAgICAgICAg ICAgICAgICAgICAgICAgICAgICANCiAgICAgICAgIC AgICAgICAgICAgICAgICAgICAgICAgICAgICAgICAgICAgICAgICAgICAgICAgICAgICAgICAgICAgIC AgICAgICAgICAgICAgICAgICAgICAgICAgICAgICANCiAgICAgICAgICAgICAgICAgICAgICAgICAgIC AgICAgICAgICAgICAgICAgICAgICAgICAgICAgICAg ICAgICAgICAgICAgICAgICAgICAgICAgICAgICAgICAgICAgICAgICANCiAgICAgICAgICAgICAgICAg ICAgICAgICAgICAgICAgICAgICAgICAgICAgICAgICAgICAgICAgICAgICAgICAgICAgICAgICAgICAg ICAgICAgICAgICAgICAgICAgICAgICANCiAgICAgIC AgICAgICAgICAgICAgICAgICAgICAgICAgICAgICAgICAgICAgICAgICAgICAgICAgICAgICAgICAgIC AgICAgICAgICAgICAgICAgICAgICAgICAgICAgICAgICANCiAgICAgICAgICAgICAgICAgICAgICAgIC AgICAgICAgICAgICAgICAgICAgICAgICAgICAgICAg ICAgICAgICAgICAgICAgICAgICAgICAgICAgICAgICAgICAgICAgICAgICANCjw/fMDaJ2fvpCCwtsR1 C3wzWw1KHr9IUB3dj2CvBJKsCVpstbGzQatTBzPgSOJiNfgDSxr6PEexNU2FkVHcD6WuL0RbKZhhHV9K BIVuLDYiaVOiNNPgLPZsWhZ1MYTdQWahVY7KiRLeYV loPFRvEXIbYR3KOLFuZ260luShUC7IMh5JQcVeAX9oow0SVvNpELAsYteXByv4TYxoJH8HvPWriWMdEs ZaRPCMWzYmX5xpw4OqOoVnFKEKUAvgBZ0Vo0YeqJQmVOy+Jm6XAT0di8YyDRxsVmRtZZ3rhz5KYNvYXw MoT9RigJziEQFxruHqKLakqjAxmEFATYO1OE4mKLZi fbZlVJhtJJZMSJE7RUjdDWIfMgAtEXLsCFo0HxZFFCbJSzCyY6Sym0EjAbT2UZZiJvNpUElyPQYnKaP3 BB92iExdYU0OMOSxOEUlKZ84TBG1GILoWi3THd9CQwVyYV2jjc5WNvzuGJApGttBYha6XJlrQA2GlUFn E3SulIGhd3iKDjZiZ1QYNSNoTOTbKj2RBLLeWiJhBF KkWNmcZH9tQCQzXKMPgQdrhhH7NA0NZH2mrsBdEO4JUbSjPh1cUk2BGwVxC3DqD8ZbSHOeEZEELCweJO 6FDCizUA5iMI6Jw9GNqSZtzA6tqe4WVVTsACLxNwruel4FTicyZ5E1fBxjNZJcHvQuMNVKSIzbJM2KRL NmOKL4NPZdKRGzOUXDOiAnP45gCG2SD2Qln65hVdW3 AQDmGnTyWLufHX96dQvxqdCisDWqrMqjNH0TJu2+DQplbmRvYmoNCnhyZWYNCjAgMjgNCjAwMDAwMDAw UJIbPuH4FmUpLn8RIURbLYEyEGQpLeVyFACaAXJgSRakBAIeYBYrHxMvQTByLWPhMH8WHbSnHRSrLuQ4 GMDgKUGdAGScuc3QZUEqTQMuGMV3DpIoBPUbRRCdNA hzBSYoBCQaEBN7TSUvVLSoMH0DTwLaMCNbYHKzBhPdKBCwSQRjvi8XZANoYREtOhSxTGRzTJTuBUFlTW yjEGRcIQPrNyF7LJRpVAOqWB3FGiPnPKCaSPG0QFJhXBIdRSHakq9BXNXyUJEzHJX9TnVeISFkSXWzPC gnXOAaMLC4AijnHQBvIFGtCP9SPwCbOEKgCEU9YUBu CSTiXSEiqn2GZBMfYPYaGgRsUCKdAECjOQXnEGtdWGBcOPC0NZP0VYGbBMFrOJ1CLbJdIUQbXRg9EoMq DOTeICLeym9YJUXoJAJjSfy2KrSsMQMdEFIqJKmjVCQtKVJ4HNGcXEQkITWuAA5EKdXlMHMgJJyhAIZo YZDeCHEips1QJLZoMEQcGWD2CtLvHEMwKVFgYEulWZ WvALF7THD8RHBjQYHbTC2RRcZlAVNzNlFbIPGhUPDbRHTlov8QHVLvPTCoTGC3XGMoDUJsRLZcIMjdYC DeSBKgMiL7TEMdEATyFJ0PCgUfIPAbZvWeKrDuXSIiHBIeym1CPGYnWRBrEoDuMFZiLYCtUMIpWUkfBZ BrWIUqBno5MILiWRBwNC1CNdAxQBOmJwD5YcUyBSUl YJDzlm2MtZMitImnyw4ZONbYSb4XrOpiFRN3RFpwRh7qoEDhUsAqSARFIg7WxbTdQKJcSKHRZMrqVVZc IXxuOCg7XsU6EUWsPHXiAnYgYAVyLGTpRiRpIOvqMxobWjN4KLB7IBstUjAlKUFdSRL1I6YcZzM3CzCp AOA8FQDnRVX+ND4wWWw+Bq3On2NljyG5rwMvKSqwMsA3VV7SOLUPL2IRMw== ID Date Data Source [id number] 03/23/2021 10:26:00 PM EDT [facility] Name Value Range Interpretation Code Description Data Arabella rce(s) Supporting Document(s) Glucose, Fingerstick 103 mg/dl 70-110 Normal (applies to non-num madiha results) [facility] The above 1 analytes were performed by [facility] [place] [id number], ,[place] [address] ID Date Data Source [id number] 03/23/2021 10:23:00 PM EDT [facility] Name Value Range Interpretation Code Description Data Arabella rce(s) Supporting Document(s) Lactic Acid 1.8 mMol/L 0.4-2.0 Normal (applies to non-numeric resu lts) [facility] The above 1 analytes were performed by [facility] [place] [id number], ,[place] [address] ID Date Data Source [id number] 03/23/2021 09:48:00 PM EDT [facility] Name Value Range Interpretation Code Description Data Arabella rce(s) Supporting Document(s) AST 12 IU/L 15-37 Below low normal [facility] Sulfasalazine and sulfapyridine have the potential to falsely depressAspartate Aminotransferase results. Baseline values before medication administration are recommended. ALT 16 IU/L 13-56 Normal (applies to non-numeric resul ts) [facility] Sulfasalazine and sulfapyridine have the potential to falsely depressAlanine Aminotransferase results. Baseline values before medication administration are recommended. Alkaline Phosphatase 56 mIU/ml 50-136 Normal (applies to non-num madiha results) [facility] Total Bilirubin 0.80 mg/dl 0.20-1.00 Normal (applies to non-numeric results) [facility] Blood Urea Nitrogen 7 mg/dl 7-18 Normal (applies to non-nume ny results) [facility] Creatinine 0.67 mg/dl 0.51-0.95 Normal (applies to non-numeric resul ts) [facility] N-Acetylcysteine (NAC) and Metamizole em ve the potential to falselydepress Creatinine results. Baseline values before medication adminstration are recommended. Patients undergoing treatment with phenindione will have falselydepressed results. Patients on phenindione therapy should be tested with an alternativeCREA method.Toxic levels of acetaminophen may lead to falsely depressed results forpatient samples. Glomerular Filtration Rate >90.00 mL/min/1.73m2 [facility] GFR Reference Ranges:Normal Function or Mild [...] of Health and the National KidneyFoundation. The [place] method used in calculating this result is traceable to IDMS standards. Glucose 48 mg/dl 70-110 Below lower panic limits [facility] Sulfasalazine has the potential to false ly depress Glucose results. Sulfapyridine has the potential to falsely elevate Glucose results. Baseline values before medication administration are recommended.Repeat and Verified Called To (First Last):OBEY VALENTINE Degree/Accreditation of Person Called:RNLocation Called: [id number] Tests and Results Called:GLU 48Additional Tests that were Called:Read Back (Y/N):YDate:03/23/2021Time:2148By:CARTER CORDOBA Calcium 8.2 mg/dl 8.5-10.1 Below low normal [facility] Total Protein 6.6 g/dl 6.4-8.2 Normal (applies to non-numeric re sults) [facility] Albumin 3.0 g/dl 3.4-5.0 Below low normal [facility] Sodium 140 mEq/L 136-145 Normal (applies to non-numeric resul ts) [facility] Potassium 3.3 mEq/L 3.5-5.1 Below low normal [facility] Chloride 114.0 mEq/L 98.0-107.0 Above high normal [facility] Anion Gap 8.3 [facility] Carbon Dioxide 21.0 mMol/L 21.0-32.0 Normal (applies to non-numeric results) [facility] The above 16 analytes were performed by [facility] [id number], ,[place] [address] ID Date Data Source [id number] 03/23/2021 09:30:00 PM EDT [facility] Name Value Range Interpretation Code Description Data Arabella rce(s) Supporting Document(s) Magnesium 2.0 mg/dl 1.6-2.6 Normal (applies to non-numeric resul ts) [facility] The above 1 analytes were performed by [facility] [id number], ,[place] [address] ID Date Data Source [id number] 03/23/2021 09:30:00 PM EDT [facility] Name Value Range Interpretation Code Description Data Arabella rce(s) Supporting Document(s) C-Reactive Protein (Non-Cardiac) <2.90 mg/L 0.00-3.00 Normal (applies to non- numeric results) [facility] The above 1 analytes were performed by [facility] [id number], ,[place] [address] ID Date Data Source [id number] 03/23/2021 09:05:00 PM EDT [facility] Name Value Range Interpretation Code Description Data Arabella rce(s) Supporting Document(s) WBC 6.19 x1000/ul 4.80-10.00 Normal (applies to non-numeric re sults) [facility] RBC 3.47 x1Mil/ul 4.20-5.40 Below low normal [facility] Hemoglobin 9.1 g/dl 12.0-16.0 Below low normal [facility] Hematocrit 29.8 % 37.0-47.0 Below low normal [facility] MCV 85.9 fL 81.0-99.0 Normal (applies to non-numeric resul ts) [facility] MCH 26.2 pg 27.0-31.0 Below low normal [facility] MCHC 30.5 g/dl 32.2-37.0 Below low normal [facility] RDW 16.8 % 11.5-14.5 Above high normal [facility] Platelet Count 228 x1000/ul 130-400 Normal (applies to non-numeric results) [facility] MPV 11.4 fL 9.4-12.4 Normal (applies to non-numeric resul ts) [facility] Neutrophils 54.6 % 40.0-74.0 Normal (applies to non-numeric resu lts) [facility] Lymphocytes 34.7 % 19.0-48.0 Normal (applies to non-numeric resu lts) [facility] Monocytes 8.7 % 3.4-9.0 Normal (applies to non-numeric resul ts) [facility] Eosinophils 1.1 % 0.0-7.0 Normal (applies to non-numeric resu lts) [facility] Basophils 0.6 % 0.0-2.0 Normal (applies to non-numeric resul ts) [facility] Immature Granulocytes 0.3 % 0.0-0.5 Normal (applies to non-nu meric results) [facility] Nucleated RBCs 0.00 % 0.00-0.20 Normal (applies to non-numeric r esults) [facility] Abs. Neutrophils 3.37 x1000/ul 1.92-8.31 Normal (applies to non-numeric results) [facility] Abs. Lymphocyte 2.15 x1000/ul 1.20-3.70 Normal (applies to non-n umeric results) [facility] Abs. Monocytes 0.54 x1000/ul 0.14-0.97 Normal (applies to non-nu meric results) [facility] Abs. Eosinophils 0.07 x1000/ul 0.00-0.76 Normal (applie s to non-numeric results) [facility] Abs. Basophils 0.04 x1000/ul 0.00-0.22 Normal (applies to non-n umeric results) [facility] Abs. Immature Gran. 0.02 x1000/ul 0.00-0.02 Normal (appl ies to non-numeric results) [facility] Abs. Nucleated RBCs 0.00 x1000/ul 0.00-0.02 Normal (appl ies to non-numeric results) [facility] The above 24 analytes were performed by [facility] [id number], ,[place] [address] ID Date Data Source [id number] 03/23/2021 07:56:26 PM EDT [facility] Name Value Range Interpretation Code Description Data Arabella rce(s) Supporting Document(s) Nursing Note [facility] MFKNPd1rAkCOTaOh56/SMTdzZKCgp8InAUkiYMf3KVoyWDNwZ1DxJWW0gL2fSOT6MSjVTtIdKkOdCGT1 lbm [file] 9GDQo= ID Date Data Source [id number] 03/23/2021 06:01:26 PM EDT [facility] Name Value Range Interpretation Code Description Data Arabella rce(s) Supporting Document(s) H&P [facility] EAYOAz7yMpOVBgTy04/VHCuzXYRpg1PkNOyoBEd5KVtlZTSdB2AdCHM2gV2qXZC5LVuQVoBgDnSxFFF7 lbm [file] AgICAgICAgICAgICAgICAgICAgICAgICAgICAgICAgICAgICAgICAgICAgICAgICAgICAgICAgICAgIC OhDNWrSILhCMNwBROuSSSxFILcRG4FJETfLECfIDNw ICAgICAgICAgICAgICAgICAgICAgICAgICAgICAgICAgICAgICAgICAgICAgICAgICAgICAgICAgICAg WUTuATHwECAqPABeAPAdKKNdOSBwXBFrIHGwGNImGN2CFQDiKVFbDDWbHHXpRHNlKHNxJYEvSZWlMLYk ICAgICAgICAgICAgICAgICAgICAgICAgICAgICAgIC MxOGJuQFFaNCWhYLHjMAXoGFOcNJKhOXGtNTIwDIXjHROyNYSdTJEpND8SPBXmLWYoCGSoIBJqJHNpNQ AgICAgICAgICAgICAgICAgICAgICAgICAgICAgICAgICAgICAgICAgICAgICAgICAgICAgICAgICAgIC PuRDNdYRPxOUMvKRRlLCWmPCWtPAPyMV9HIUKgFURx ICAgICAgICAgICAgICAgICAgICAgICAgICAgICAgICAgICAgICAgICAgICAgICAgICAgICAgICAgICAg GNHjNWOvHUKcSDJyIVFoUGFkTOFxYPPfWIOuZRBiBFQyTR2YMEAvGJPlLWOzHVSwPIMeWXIvIVPcCXNi ICAgICAgICAgICAgICAgICAgICAgICAgICAgICAgIC WcAQPyBJDdURPuRKUbOOTiLKSdMTPmDFIbPPGgEUFdRKFuISOfAAYbFZXqYX8OAMQxXSOxJKNyLBJkDA AgICAgICAgICAgICAgICAgICAgICAgICAgICAgICAgICAgICAgICAgICAgICAgICAgICAgICAgICAgIC KeIFFbNRGaXAAiILOvXJPzAHRmBPRcGAXuIB2WKKSd ICAgICAgICAgICAgICAgICAgICAgICAgICAgICAgICAgICAgICAgICAgICAgICAgICAgICAgICAgICAg ZNPqLYIvTKIgVPXpSGAyNHHbNEPnVQYgNHMdCVAvNIWhNHRdVG3FJPIvGWZtXYSvOQVgWGPgKWIdBANc ICAgICAgICAgICAgICAgICAgICAgICAgICAgICAgIC OnFBHqFCQzSMXjCSOnEYXpIQYiLCJkSMZsYYAbVYPmZTEjDOXlNDWnHKEhISTiEU9FAHIpXEKgDWWlKN AgICAgICAgICAgICAgICAgICAgICAgICAgICAgICAgICAgICAgICAgICAgICAgICAgICAgICAgICAgIC SuUQWeXRGyQNEuFTNpUGUyEKFmSKKbRHYkCIOfOR4R DK15tMBbu1M7GCKqSV1nnff/Ab6NTWdmbbUjrVWaTN0LJsDlAB1vdm7NEgYcIP0xua0JFYiHTqHpN7I5 wCGlLDGkHINDKiMtE78fCTcuEu60KRdbTUCyNePaXNv9Pl0YNjBoR3sgLSYyEvC0FCAeWtK6PCUxNcO7 JXRgSzPkEZXfRHRhWU8NLBKfZ833bxToRC1NUz8GJc IiTB3gbn2OXfghZGFsDwlQMdb0GUbyTW9CvMAjfDUoAKEaMSTFPaTtH2dod4NyZivlSEHGQPyaJR3Bb8 VudCAxDQo+Bg2KSB0gu1KoZCfkFGSzNG6ami8AVIbAZvTuP6XbsSbuEKuyZVPqrEOShHRcpaBEvTNyJZ NQIXVtpUU2MpK3IeIpWxOrDRG4TTMjDJ4jZMzmLD5N NPS4MUtbJZClINYgI7lMWgCpQMexVUWfsRnfYA9BIuZvQ7SchyJxtHRyLtByQIPCQd8+DQplbmRvYmoN IaK8DHPwi0AyCCu2IZ9YCOKvWTtvRJ5JYNOaqB4jIPetTQ0LExFdBPVkABYVYnOkA95tuUXgVPn7Q9Oc YmVkZGVkRmlsZXMgPDwvTmFtZXMgWyBdDQogID4+ID 4+IQknIA8WFXofzuLaLTAcJs6SWIQgBQRmOU7qCQYuFNLoT8E9tSrhMOLIKtLkS7nsdgkuCI5hSHGyA9 32iEokxfWdZXF1JBMbJm7JGTFoUUF9KCFmdESaSvEbGYMBJOhnTL9YoIRyEPV5mC2cVTlkIJWeLKAlM3 xVZuUlcQwyHT11zPoyxuXisOJzRIo+Eb1NSU6ov1Tp ETe5zuRiMHyiKHEfLTqgTSFcVNNoSGPiBMY2CMH7AFQEXjZyLDVlAZXlICvoUUWnTKEvpc5ITDBaSWBy HFM5ILJxSOLeALGwUQnqVSGkRNNrBYJiIAImNMDrHM4KRfSwJQNbTOWdWMmeQNKbXUPmcg3MRBWvLISu JwOqJlYmZHFeRECnQNlwBJHfIUDjNhS0TDMlLFZwQQ 2FMaPtYJAvRGX1LnddNXZvBJIyxe2CTCXxVPGmHZE6QAWgGOErACHjGRonNICzWXH3THZhPRDpGIFwRS 9XWbGcXYSfEIidWiwyIEZgJJOptg5GREFmLNAxICK2EYIdGFTpKMIxDJynABEsLJY6JXjfBLOqIAMvGL 1EStRuYHKvJHU3JwWdXCDdNYPscp2KSSOnXXAjCPTt TgQdVYNpEPHlRKdvBBOjSSJwZMNkSGSoXPFyRO8MSjEqNNKgLSH5FSJsVELoUKQdzw1RAYXaIDQwRDy3 VeLrCTHyYQYhKJtmTVFhCWEnEHUrBMPbZALeGC4VAhGlQMXjYcX7ZXaaSAOuNKWbzv3JZZDwJXCtPUxp AMMoYGCpHFInZJrpTGOvKHY1HYY5ACExEIHlMI9CMq OvHDMtZiKbMvLpKPBhRXKtyw1YDRBjCPSjOONlIQYoOLVjRACdCLgyFSDeKJR7DsLeSPYwMULgNI5SJo XdJPHtNvI9VFWnHYRrVZYiml5GLUGbYPYfLdlaWiJdDNSmGVRoOQtfVLUyKJX8Dcy4MIWjZNCdEF1FAj EkIQCdIqe1FJubSXHiCSSkwx0XEZZcEPPgKEJgRwLg ONTdLLXxSVutWNBzDIJ9AUf7QLYfATYrYX5UYgVfNPDuBayySAniHCToBLUmjq1OURHtKFAoEDTgByTw IZJdFMClKFccVXDgPHYzUgk2SJJkUEYyBK6BOeNyAEOrNfY6QdXeLJUnXLQzro1FNBTsSKLiTAG0HODq MHPzQYEqOIidSBSgWBTiUWQtVITkQEZzWG1XZqImTG JqQfB4VKWoZXBmHGUdwc4GENPpTAIgRqX4PXYiHDQdUZPkCBzeEKJyDPYuMww7RIAbAIXuPC7DJyAfKQ qtJNXJJyc5FAgrS1y4DLR8XJ5XW9Sme8PcYqufYNDCJIgbYF9zbaLeNCMqIs0AA9cIVedkDUCqBNprRL HyAEJlBqGuXgA3GRCbMaW7COR1FcqmGT8nIXQ6KVV2 QKKtT5BnOnZgZfMbOjv0KxInQTJyInYcRgW4TvLhJA2DTq0GPlQ4YQR3qIIwWs9BKwBrXqrMTaHpWU0A DQo= ID Date Data Source [id number] 03/22/2021 08:28:35 PM EDT [facility] Name Value Range Interpretation Code Description Data Arabella rce(s) Supporting Document(s) Progress Note [facility] MJZTGj3xOsPIBgUz95/BHSsqLUTaj3UuEXxgUNg0BJfcKFKnX7HyKAB3fD9dRYV8ZFtSKdPhZsWrLDK9 lbm EuAkiOCnXuBMVfUnfXCdWyCJsyQojuoAZqQR5OjVL2WCJbH22cHIIzMPJtC6UtLKB2KXY+Mj9MABMqvP VlNV0CStqT9Ewfq+H0PU5fFM5ZjHGpPB6hVJgvYjiGt0Hwit5KTUOzenMFVITwDodWrRs747e3WMdrUs uusakqNP8bZ7V+u9/+lNQVQRl6eaKB08Hajq+vv4YR Z8M5+/orVk/z+Hpa/OGESon0K59kVTV/qr9qK1jnx/mOg0R94o/rwQmTgWAnkROw/ujobBr/8Sk18aJw DDIUJgr48JUEXAtUKAaIp3v/Kzvvs+jhAC1kMN9x7HjaROJDxblZ5zp8h4SvF9soCNO1chYxJeI8HNxw 60KRFeO4mvZyYcZp0GpXFQsg4q578wvXT+fvIRTUuB U1Lc+JpIM+7txxd3l1saLsxkUcCP8mvoxaAl4q2NNMH2VcG3gAfMldhmjjsS0SME2yWiVX1Jo8dhxmjG ZgcK+m6gggsOy2G3qqbcrAlDVcEl4q6rSE/B7QFgPjWKEnDeBIH4wH1YfhEwRifa/s/Mh5ekwEdznMk9 6dlwMnHqIKm0fa/RLl++TBDqsPCgbuJnoTDo3af3ml sEunt0ufu4Uh0fzLv9kuyb+h41rpev8E/GI4EzU3lWLiT+0ARrEdZTv5IAU8CyA3VtYsRtNQwK1w/ARNAUD [file] ID Date Data Source [id number] 03/22/2021 06:09:00 PM EDT [facility] ital TSYSORDER [id number] Name Value Range Interpretation Code Description Data Arabella rce(s) Supporting Document(s) URINE COLOR. [facility] URINE APPEARANCE CLEAR [facility] GLUCOSE (UA) NEGATIVE mg/dL NEGATIVE [facility] URINE BILIRUBIN NEGATIVE NEGATIVE [facility] URINE KETONE 5(TRACE) mg/dL NEGATIVE [facility] SPECIFIC GRAVITY,URINE 1.015 1.005-1.030 [facility] URINE BLOOD NEGATIVE NEGATIVE [facility] PH,URINE 7.5 5.0-9.0 [facility] URINE PROTEIN NEGATIVE mg/dL NEGATIVE [facility] jay URINE UROBILINOGEN NORMAL(0.2-1) mg/dL 0-1 [facility] URINE NITRATE NEGATIVE NEGATIVE [facility] URINE LEUKOCYTE ESTERASE NEGATIVE NEGATIVE [facility] ID Date Data Source [id number] 03/22/2021 05:30:00 PM EDT [facility] Name Value Range Interpretation Code Description Data Arabella rce(s) Supporting Document(s) COVID-19 NEGATIVE [facility] This lab was ordered by [facility] and reported by [facility]. ID Date Data Source [id number] 03/22/2021 06:06:00 PM EDT [facility] TSYS[facility] [id number] Name Value Range Interpretation Code Description Data Arabella rce(s) Supporting Document(s) COVID-19 NEGATIVE NEGATIVE [facility] Negative results should be treated as [...] are for the indentification of SARS-CoV-2 RNA. MxmTRXE-GfL-3 RNA is generally detectable in respiratorysamples during the actue phase of infection. ID Date Data Source [id number] 03/22/2021 04:58:00 PM EDT [facility] DATE OF EXAMINATION: 03/22/2021 14:46 EDT ABD/PEL [...] Name Value Range Interpretation Code Description Data [facility] rce(s) Supporting Document(s) ID Date Data Source [id number] 03/22/2021 03:33:00 PM EDT [facility] l TSYSORDER [id number] Name Value Range Interpretation Code Description Data [facility] rce(s) Supporting Document(s) LACTIC ACID 0.9 mmol/L 0.4-2.0 [facility] ID Date Data Source [id number] 03/22/2021 03:31:00 PM EDT [facility] l TSYSORDER [id number] Name Value Range Interpretation Code Description Data [facility] rce(s) Supporting Document(s) GLUCOSE 88 mg/dL 74-106 [facility] BLOOD UREA NITROGEN 11 mg/dL 7-18 [facility] CREATININE 0.71 mg/dL 0.6-1.0 [facility] SODIUM 139 mmol/L 136-145 [facility] POTASSIUM 4.2 mmol/L 3.5-5.1 [facility] CHLORIDE 105 mmol/L 98-107 [facility] CO2 23 mmol/L 21-32 [facility] CALCIUM 9.2 mg/dL 8.5-10.1 [facility] ANION GAP 11.0 mmol/L 5-12 [facility] GLOMERULAR FILTRATION RATE >90 mL/min [facility] GFR IS CALCULATED IN mL/min/1.73m2 JUDITH L FUNCTION: >90MILDLY DECREASED: 60-89MILDY TO MODERATELY DECREASED: 45-59 MODERATELY TO SEVERELY DECREASED: 30-44SEVERELY DECREASED: 15-29RENAL FAILURE: <15 AST 20 U/L 15-37 [facility] ALT 20 U/L 12-78 [facility] ALKALINE PHOSPHATASE 70 U/L 46-116 [facility] TOTAL BILIRUBIN 1.0 mg/dL 0.2-1.0 [facility] TOTAL PROTEIN 7.6 g/dl 6.4-8.2 [facility] ALBUMIN 3.4 gm/dL 3.4-5.0 [facility] ID Date Data Source [id number] 03/22/2021 03:31:00 PM EDT [facility] l TSYSORDER [id number] Name Value Range Interpretation Code Description Data Arabella rce(s) Supporting Document(s) LIPASE 117 U/L 73-393 [facility] ID Date Data Source [id number] 03/22/2021 03:24:00 PM EDT [facility] TSYSORDER [id number] Name Value Range Interpretation Code Description Data Arabella rce(s) Supporting Document(s) HCG,SERUM NEGATIVE NEGATIVE [facility] False negative results may occur when th e levels of hCG arebelow the sensitivity level of the test. If isstill suspected, a first morning urine specimen should becollected 48hrs later.This test has a sensitivity of 10mIU/mL in serum tfc31zCS/mL in urine. ID Date Data Source [id number] 03/22/2021 03:10:00 PM EDT [facility] l TSYSORDER [id number] Name Value Range Interpretation Code Description Data Arabella e(s) Supporting Document(s) WHITE BLOOD COUNT 6.3 K/mm3 4.0-10.0 [facility] RED BLOOD COUNT 3.90 M/mm3 4.00-5.50 L [facility] HEMOGLOBIN 10.2 gm/dL 12.0-16.0 L [facility] HEMATOCRIT 31.5 % 36.0-48.8 L [facility] MEAN CELL VOLUME 80.8 fl 80-96 [facility] MEAN CORPUSCULAR HEMOGLOBIN 26.2 pg 27.0-31.0 L [facility] MEAN CORPUSCULAR HGB CONC 32.4 g/dl 32.0-36.0 [facility] RED CELL DISTRIBUTION WIDTH 16.4 % 10.0-14.5 H [facility] PLATELET COUNT 146 K/mm3 172-450 L [facility] MEAN PLATELET VOLUME 12.1 fl 9.0-13.0 [facility]ital GRAN % 60.8 % 50-80.0 [facility] IG% 0.2 % 0.0-0.2 [facility] LYMPH % 30.7 % 25.0-50.0 [facility] MONO % 6.7 % 2.0-10.0 [facility] EOS % 1.0 % 0-5.0 [facility] BASO % 0.6 % 0.0-2.0 [facility] GRAN # 3.8 K/mm3 2.0-8.00 [facility] IG# 0.0 K/mm3 0.0-0.2 [facility] LYMPH # 1.9 K/mm3 1.0-5.0 [facility] MONO # 0.4 K/mm3 0.10-1.20 [facility] EOS # 0.1 K/mm3 0.0-0.5 [facility] BASO # 0.0 K/mm3 0.0-0.2 [facility] ID Date Data Source [id number] 03/19/2021 08:43:00 AM EDT [facility] l DATE OF EXAMINATION: 03/19/2021 8:12 [...] Data Source CT ABD/PEL NO CONTRAST - [id number] 03/19/2021 12:00:00 AM EDT eC W1 ([facility]) Name Value Range Interpretation Code Description Data Arabella rce(s) Supporting Document(s) CT ABD/PEL NO CONTRAST - [id number] eCW1 ([facility]) ID Date Data Source [id number] 03/10/2021 05:49:00 PM EDT [facility] ([facility] Name Value Range Interpretation Code Description Data Arabella rce(s) Supporting Document(s) Ferritin [Mass/volume] in Serum or Plasma 7 [facility] ([facility]) ID Date Data Source [id number] 03/10/2021 05:49:00 PM EDT [facility] ([facility] Name Value Range Interpretation Code Description Data Arabella rce(s) Supporting Document(s) Iron 38 [facility] Iron binding capacity [Mass/volume] in Serum or Plasma 429 [facility] ([facility]) Tibc % Saturation 9 [facility] ([facility]) ID Date Data Source [id number] 03/10/2021 05:49:00 PM EDT [facility] ([facility]) Name Value Range Interpretation Code Description Data Arabella rce(s) Supporting Document(s) CPK-MB 1.3 [facility] Thyroid Stimulating Hormone 27.184 0.360-3.740 [facility] ([facility]) Free T4 0.4 [facility] ID Date Data Source [id number] 03/10/2021 05:49:00 PM EDT [facility] Name Value Range Interpretation Code Description Data Arabella rce(s) Supporting Document(s) White Blood Count 6.9 [facility] ([facility]) Red Blood Count 4.05 [facility] ([facility]) Hematocrit 33.2 [facility] ([facility]) Hemoglobin 10.4 [facility] ([facility]) Platelets 360 [facility] ID Date Data Source [id number] 03/10/2021 05:49:00 PM EDT [facility] ([facility]) Name Value Range Interpretation Code Description Data Arabella rce(s) Supporting Document(s) Troponin Laboratory test result 0-60.4 [facility] ([facility]) ID Date Data Source [id number] 03/10/2021 05:49:00 PM EDT [facility] ([facility]) Name Value Range Interpretation Code Description Data Arabella rce(s) Supporting Document(s) Alanine aminotransferase [Enzymatic activity/volume] in Serum or Pl asma 20 [facility] ([facility]) Albumin [Mass/volume] in Serum or Plasma 3.5 [facility] ([facility]) Calcium [Mass/volume] in Serum or Plasma 8.7 [facility] ([facility]) Carbon dioxide, total [Moles/volume] in Serum or Plasma 27 [facility] ([facility]) Chloride [Moles/volume] in Serum or Plasma 104 [facility] ([facility]) Potassium [Moles/volume] in Serum or Plasma 4.2 [facility] ([facility]) Protein [Mass/volume] in Serum or Plasma 7.8 [facility] ([facility]) Alkaline phosphatase [Enzymatic activity/volume] in Serum or Plasma 8 0 [facility] ([facility]) Sodium 138 [facility] ([facility]) Aspartate aminotransferase [Enzymatic activity/volume] in Serum or Plasma 15 [facility] ([facility]) Urea nitrogen [Mass/volume] in Serum or Plasma 11 [facility] ([facility]) Creatinine For GFR 0.85 [facility] ([facility]) Glucose 89 [facility] ([facility]) ID Date Data Source [id number] 03/10/2021 04:36:00 PM EDT [facility] [...] rce(s) Supporting Document(s) ID Date Data Source [id number] 03/10/2021 04:50:00 PM EDT [facility] Name Value Range Interpretation Code Description Data Arabella rce(s) Supporting Document(s) FERRITIN 7 ng/mL 8-252 [facility] ID Date Data Source [id number] 03/10/2021 04:50:00 PM EDT [facility] Name Value Range Interpretation Code Description Data Arabella rce(s) Supporting Document(s) IRON 38 ug/dL 50-170 [facility] TIBC 429 ug/dL 250-450 [facility] % SATURATION 9 % 20-50 [facility] ID Date Data Source [id number] 03/10/2021 04:50:00 PM EDT [facility] Name Value Range Interpretation Code Description Data Arabella rce(s) Supporting Document(s) TROPONIN-HIGH SENSITIVITY < 4.0 ng/L 0-60.4 [facility] ID Date Data Source [id number] 03/10/2021 04:50:00 PM EDT [facility] l Name Value Range Interpretation Code Description Data Arabella rce(s) Supporting Document(s) CKMB 1.3 ng/ml 0.0-3.6 [facility] ID Date Data Source [id number] 03/10/2021 04:50:00 PM EDT [facility] l Name Value Range Interpretation Code Description Data Arabella rce(s) Supporting Document(s) GLUCOSE 89 mg/dL 74-106 [facility] BLOOD UREA NITROGEN 11 mg/dL 7-18 [facility] CREATININE 0.85 mg/dL 0.6-1.0 [facility] SODIUM 138 mmol/L 136-145 [facility] POTASSIUM 4.2 mmol/L 3.5-5.1 [facility] CHLORIDE 104 mmol/L 98-107 [facility] CO2 27 mmol/L 21-32 [facility] CALCIUM 8.7 mg/dL 8.5-10.1 [facility] ANION GAP 7.0 mmol/L 5-12 [facility] GLOMERULAR FILTRATION RATE 75 mL/min [facility] GFR IS CALCULATED IN mL/min/1.73m2 JUDITH L FUNCTION: >90MILDLY DECREASED: 60-89MILDY TO MODERATELY DECREASED: 45-59 MODERATELY TO SEVERELY DECREASED: 30-44SEVERELY DECREASED: 15-29RENAL FAILURE: <15 AST 15 U/L 15-37 [facility] ALT 20 U/L 12-78 [facility] ALKALINE PHOSPHATASE 80 U/L 46-116 [facility] TOTAL BILIRUBIN 0.5 mg/dL 0.2-1.0 [facility] TOTAL PROTEIN 7.8 g/dl 6.4-8.2 [facility] ALBUMIN 3.5 gm/dL 3.4-5.0 [facility] ID Date Data Source [id number] 03/10/2021 04:50:00 PM EDT [facility] l Name Value Range Interpretation Code Description Data Arabella rce(s) Supporting Document(s) FREE T4 0.4 ng/dL 0.76-1.46 [facility] ID Date Data Source [id number] 03/10/2021 04:50:00 PM EDT [facility] l Name Value Range Interpretation Code Description Data Arabella rce(s) Supporting Document(s) TSH 27.184 uIU/mL 0.360-3.740 [facility] ID Date Data Source [id number] 03/10/2021 04:22:00 PM EDT [facility] l Name Value Range Interpretation Code Description Data Arabella rce(s) Supporting Document(s) WHITE BLOOD COUNT 6.9 K/mm3 4.0-10.0 [facility] RED BLOOD COUNT 4.05 M/mm3 4.00-5.50 [facility] HEMOGLOBIN 10.4 gm/dL 12.0-16.0 L [facility] HEMATOCRIT 33.2 % 36.0-48.8 L [facility] MEAN CELL VOLUME 82.0 fl 80-96 [facility] MEAN CORPUSCULAR HEMOGLOBIN 25.7 pg 27.0-31.0 L [facility] MEAN CORPUSCULAR HGB CONC 31.3 g/dl 32.0-36.0 L [facility] RED CELL DISTRIBUTION WIDTH 16.2 % 10.0-14.5 H [facility] PLATELET COUNT 360 K/mm3 172-450 [facility] MEAN PLATELET VOLUME 10.3 fl 9.0-13.0 [facility] pital GRAN % 55.3 % 50-80.0 [facility] IG% 0.1 % 0.0-0.2 [facility] LYMPH % 34.2 % 25.0-50.0 [facility] MONO % 7.6 % 2.0-10.0 [facility] EOS % 2.2 % 0-5.0 [facility] BASO % 0.6 % 0.0-2.0 [facility] GRAN # 3.8 K/mm3 2.0-8.00 [facility] IG# 0.0 K/mm3 0.0-0.2 [facility] LYMPH # 2.4 K/mm3 1.0-5.0 [facility] MONO # 0.5 K/mm3 0.10-1.20 [facility] EOS # 0.2 K/mm3 0.0-0.5 [facility] BASO # 0.0 K/mm3 0.0-0.2 [facility] ID Date Data Source [id number] 03/10/2021 04:59:00 PM EDT [facility] FAX [phone] Name Value Range Interpretation Code Description Data Arabella rce(s) Supporting Document(s) LITHIUM < 0.20 mmol/L 0.6-1.20 [facility] ID Date Data Source FERRITIN 03/10/2021 12:00:00 AM EDT eCW1 ([facility]) Name Value Range Interpretation Code Description Data Arabella rce(s) Supporting Document(s) 7 8-252 FERRITIN eCW1 ([facility]) ID Date Data Source IRON PROFILE 03/10/2021 12:00:00 AM EDT eCW1 ([facility]) Name Value Range Interpretation Code Description Data Arabella rce(s) Supporting Document(s) 429 250-450 TIBC eCW1 ([facility]) 38 50-170 IRON eCW1 ([facility]) 9 20-50 % SATURATION eCW1 ([facility]) ID Date Data Source CBC W/DIFF 03/10/2021 12:00:00 AM EDT eCW1 ([facility]) Name Value Range Interpretation Code Description Data Arabella rce(s) Supporting Document(s) 10.4 12.0-16.0 HEMOGLOBIN eCW1 ([facility]) 4.05 4.00-5.50 RED BLOOD COUNT eCW1 ([facility]) 6.9 4.0-10.0 WHITE BLOOD COUNT eCW1 ([facility]) 25.7 27.0-31.0 MEAN CORPUSCULAR HEMOGLOB IN eCW1 ([facility]) 82.0 80-96 MEAN CELL VOLUME eCW1 ([facility]) 33.2 36.0-48.8 HEMATOCRIT eCW1 ([facility]) 31.3 32.0-36.0 MEAN CORPUSCULAR HGB CONC eCW1 ([facility]) 16.2 10.0-14.5 RED CELL DISTRIBUTION WID TH eCW1 ([facility]) 360 172-450 PLATELET COUNT eCW1 ([facility]) 34.2 25.0-50.0 LYMPH % eCW1 ([facility]) 7.6 2.0-10.0 MONO % eCW1 ([facility]) 10.3 9.0-13.0 MEAN PLATELET VOLUME eCW1 ([facility]) 55.3 50-80.0 GRAN % eCW1 ([facility]) 0.6 0.0-2.0 BASO % eCW1 ([facility]) 3.8 2.0-8.00 GRAN # eCW1 ([facility]) 2.2 0-5.0 EOS % eCW1 ([facility]) 0.2 0.0-0.5 EOS # eCW1 ([facility]) 2.4 1.0-5.0 LYMPH # eCW1 ([facility]) 0.5 0.10-1.20 MONO # eCW1 ([facility]) 0.0 0.0-0.2 BASO # eCW1 ([facility]) ID Date Data Source CHEST 2 VIEWS 03/10/2021 12:00:00 AM EDT eCW1 ([facility]) Name Value Range Interpretation Code Description Data Arabella rce(s) Supporting Document(s) CHEST 2 VIEWS eCW1 ([facility]) ID Date Data Source FREE T4 03/10/2021 12:00:00 AM EDT eCW1 ([facility]) Name Value Range Interpretation Code Description Data Arabella rce(s) Supporting Document(s) 0.4 0.76-1.46 FREE T4 eCW1 ([facility]) ID Date Data Source TSH 03/10/2021 12:00:00 AM EDT eCW1 ([facility]) Name Value Range Interpretation Code Description Data Arabella rce(s) Supporting Document(s) 27.184 0.360-3.740 TSH eCW1 ([facility]) ID Date Data Source CKMB 03/10/2021 12:00:00 AM EDT eCW1 ([facility]) Name Value Range Interpretation Code Description Data Arabella rce(s) Supporting Document(s) 1.3 0.0-3.6 CK eCW1 ([facility]) ID Date Data Source [id number] 01/30/2021 08:06:00 AM EDT [facility] Name Value Range Interpretation Code Description Data Arabella rce(s) Supporting Document(s) Folate (Folic Acid), Serum 8.6 ng/mL >3.0 [facility] A serum folate concentration of less simi n 3.1 ng/mL isconsidered to represent clinical deficiency. ID Date Data Source [id number] 01/30/2021 08:06:00 AM EDT [facility] Name Value Range Interpretation Code Description Data Arabella rce(s) Supporting Document(s) Vitamin B12 351 pg/mL [id number] [facility] ID Date Data Source [id number] 01/30/2021 08:06:00 AM EDT [facility] Name Value Range Interpretation Code Description Data Arabella rce(s) Supporting Document(s) FOLATE (FOLIC ACID), SERUM 8.6 ng/mL >3.0 [facility] A serum folate concentration of less simi n 3.1 ng/mL isconsidered to represent clinical deficiency. ID Date Data Source [id number] 01/30/2021 08:06:00 AM EDT [facility] l Name Value Range Interpretation Code Description Data Arabella rce(s) Supporting Document(s) VITAMIN B12 351 pg/mL [phone] [facility] Performed at: RN - [facility] [address] [id number] Director: Sharmaine Siddiqui MD, Phone: [phone] ID Date Data Source [id number] 01/29/2021 03:33:00 PM EDT [facility] Name Value Range Interpretation Code Description Data Arabella rce(s) Supporting Document(s) IRON 31 ug/dL 50-170 L [facility] TIBC 462 ug/dL 250-450 H [facility] % SATURATION 7 % 20-50 L [facility] ID Date Data Source [id number] 01/15/2021 01:59:00 PM EDT [facility] l DATE OF EXAMINATION: 01/15/2021 11:42 EDT [...] rce(s) Supporting Document(s) ID Date Data Source [id number] 01/15/2021 12:37:00 PM EDT [facility] DATE OF EXAMINATION: 01/15/2021 11:42 EDT HISTORY: [...] rce(s) Supporting Document(s) ID Date Data Source [id number] 01/15/2021 11:52:00 AM EDT [facility] Name Value Range Interpretation Code Description Data Arabella rce(s) Supporting Document(s) WHITE BLOOD COUNT 6.3 [facility] 4.0[facility]10.0 [facility] 3.71 M/mm3 4.00-5.50 L [facility] HEMOGLOBIN 9.7 gm/dL 12.0-16.0 L [facility] HEMATOCRIT 30.5 % 36.0-48.8 L [facility] MEAN CELL VOLUME 82.2 fl 80-96 [facility] MEAN CORPUSCULAR HEMOGLOBIN 26.1 pg 27.0-31.0 L [facility] MEAN CORPUSCULAR HGB CONC 31.8 g/dl 32.0-36.0 L [facility] RED CELL DISTRIBUTION WIDTH 13.7 % 10.0-14.5 [facility] PLATELET COUNT 255 K/mm3 172-450 [facility] MEAN PLATELET VOLUME 10.9 fl 9.0-13.0 [facility] pital GRAN % 53.2 % 50-80.0 [facility] IG% 0.0 % 0.0-0.2 [facility] LYMPH % 35.0 % 25.0-50.0 [facility] MONO % 9.1 % 2.0-10.0 [facility] EOS % 2.1 % 0-5.0 [facility] BASO % 0.6 % 0.0-2.0 [facility] GRAN # 3.4 K/mm3 2.0-8.00 [facility] IG# 0.0 K/mm3 0.0-0.2 [facility] LYMPH # 2.2 K/mm3 1.0-5.0 [facility] MONO # 0.6 K/mm3 0.10-1.20 [facility] EOS # 0.1 K/mm3 0.0-0.5 [facility] BASO # 0.0 K/mm3 0.0-0.2 [facility] ID Date Data Source [id number] 01/15/2021 12:35:00 PM EDT [facility] l Name Value Range Interpretation Code Description Data Arabella rce(s) Supporting Document(s) ERYTHROCYTE SEDIMENTATION RATE 70 mm/hr 0-20 H [facility] ID Date Data Source [id number] 01/15/2021 12:10:00 PM EDT [facility] l Name Value Range Interpretation Code Description Data Arabella rce(s) Supporting Document(s) FREE T4 0.5 ng/dL 0.76-1.46 L [facility] ID Date Data Source [id number] 01/15/2021 12:10:00 PM EDT [facility] l Name Value Range Interpretation Code Description Data Arabella rce(s) Supporting Document(s) TSH 19.669 uIU/mL 0.360-3.740 H [facility] ID Date Data Source [id number] 01/15/2021 11:59:00 AM EDT [facility] l Name Value Range Interpretation Code Description Data Arabella rce(s) Supporting Document(s) GLUCOSE 72 mg/dL 74-106 L [facility] BLOOD UREA NITROGEN 14 mg/dL 7-18 [facility] ital CREATININE 0.83 mg/dL 0.6-1.0 [facility] SODIUM 138 mmol/L 136-145 [facility] POTASSIUM 4.5 mmol/L 3.5-5.1 [facility] CHLORIDE 104 mmol/L 98-107 [facility] CO2 27 mmol/L 21-32 [facility] CALCIUM 8.8 mg/dL 8.5-10.1 [facility] ANION GAP 7.0 mmol/L 5-12 [facility] GLOMERULAR FILTRATION RATE 77 mL/min [facility] GFR IS CALCULATED IN mL/min/1.73m2 JUDITH L FUNCTION: >90MILDLY DECREASED: 60-89MILDY TO MODERATELY DECREASED: 45-59 MODERATELY TO SEVERELY DECREASED: 30-44SEVERELY DECREASED: 15-29RENAL FAILURE: <15 AST 16 U/L 15-37 [facility] ALT 23 U/L 12-78 [facility] ALKALINE PHOSPHATASE 76 U/L 46-116 [facility] pital TOTAL BILIRUBIN 0.5 mg/dL 0.2-1.0 [facility] TOTAL PROTEIN 6.9 g/dl 6.4-8.2 [facility] ALBUMIN 3.5 gm/dL 3.4-5.0 [facility] ID Date Data Source Urinalysis, Routine 01/15/2021 12:00:00 AM EDT eCW1 ([facility]) Name Value Range Interpretation Code Description Data [facility] Supporting Document(s) Color of Urine Ellen Urine-Color eCW1 ([facility]) Microscopic Examination eCW1 ( [facility]) Specific gravity of Urine 1.025 Specific G ravity eCW1 ([facility]) Appearance of Urine Clear Appearance eCW1 ([facility]) pH of Urine by Test strip 5 pH eCW1 ([facility]) Glucose [Presence] in Urine NEG Glucose eCW1 ([facility]) Protein [Presence] in Urine by Test strip NEG Protein eCW1 ([facility]) Bilirubin.total [Presence] in Urine by Test strip NEG Bilirubin eCW1 ([facility]) Hemoglobin [Presence] in Urine by Test strip NEG Occult Blood eCW1 ([facility]) Nitrite [Presence] in Urine by Test strip NEG Nitrite, Urine eCW1 ([facility]) Urobilinogen [Mass/volume] in Urine by Test strip NEG Urobilinogen,Semi-Qn eCW1 ([facility]) Ketones [Presence] in Urine by Test strip NEG Ketones eCW1 ([facility]) Urinalysis Gross Exam eCW1 ([facility]) Leukocyte esterase [Presence] in Urine by Test strip NEG WBC Esterase eCW1 ([facility]) Procedure Social History Code Duration Value Status Description Data Source(s ) Smoking 05/05/2021 12:00:00 AM EDT Current Smoker completed Curre nt Smoker eCW1 ([facility]) Smoking 05/05/2021 12:00:00 AM EDT Current Smoker completed Curre nt Smoker eCW1 ([facility]) Smoking 05/05/2021 12:00:00 AM EDT Current Smoker completed Curre nt Smoker eCW1 ([facility]) Smoking 05/05/2021 12:00:00 AM EDT Current Smoker completed Curre nt Smoker eCW1 ([facility]) Smoking 05/05/2021 12:00:00 AM EDT Current Smoker completed Curre nt Smoker eCW1 ([facility]) Alcohol intake 05/02/2021 12:00:00 AM EDT Ex-drinker (finding) comp leted Ex- drinker (finding) [facility] Tobacco use and exposure 05/02/2021 12:00:00 AM EDT Never used co mpleted Never used [facility] Smoking 05/02/2021 12:00:00 AM EDT Former smoker completed Former smoker [facility] Alcohol intake 04/25/2021 12:00:00 AM EDT Ex-drinker (finding) comp leted Ex- drinker (finding) [facility] Smoking 03/10/2021 12:00:00 AM EDT Current Smoker completed Curre nt Smoker eCW1 ([facility]) Smoking 03/10/2021 12:00:00 AM EDT Current Smoker completed Curre nt Smoker eCW1 ([facility]) Smoking 03/10/2021 12:00:00 AM EDT Current Smoker completed Curre nt Smoker eCW1 ([facility]) Smoking 03/10/2021 12:00:00 AM EDT Current Smoker completed Curre nt Smoker eCW1 ([facility]) Smoking 03/10/2021 12:00:00 AM EDT Current Smoker completed Curre nt Smoker eCW1 ([facility]) Smoking 03/10/2021 12:00:00 AM EDT Current Smoker completed Curre nt Smoker eCW1 ([facility]) Smoking 02/21/2021 12:00:00 AM EDT Current Smoker completed Curre nt Smoker eCW1 ([facility]) Smoking 02/13/2021 12:00:00 AM EDT Current Smoker completed Curre nt Smoker eCW1 ([facility]) Smoking 01/31/2021 12:00:00 AM EDT Current Smoker completed Curre nt Smoker eCW1 ([facility]) Smoking 01/29/2021 12:00:00 AM EDT Current Smoker completed Curre nt Smoker eCW1 ([facility]) Smoking 01/29/2021 12:00:00 AM EDT Current Smoker completed Curre nt Smoker eCW1 ([facility]) Smoking 01/29/2021 12:00:00 AM EDT Current Smoker completed Curre nt Smoker eCW1 ([facility]) Smoking 01/15/2021 12:00:00 AM EDT Current Smoker completed Curre nt Smoker eCW1 ([facility]) Smoking 01/15/2021 12:00:00 AM EDT Current Smoker completed Curre nt Smoker eCW1 ([facility]) Smoking 01/15/2021 12:00:00 AM EDT Current Smoker completed Curre nt Smoker eCW1 ([facility]) Smoking 01/15/2021 12:00:00 AM EDT Current Smoker completed Curre nt Smoker eCW1 ([facility]) Smoking 01/15/2021 12:00:00 AM EDT Current Smoker completed Curre nt Smoker eCW1 ([facility]) 03/20/2021 12:00:00 AM EDT Smoker completed Smoker [facility] 03/20/2021 12:00:00 AM EDT Current smoker completed Curre nt smoker [facility] Vital Signs ID Date Data Source UNK Name Value Range Interpretation Code Description Data Source(s) Body temperature 36.22 Jayde 36.22 Jayde [facility] Respiratory rate 18 /min 18 /min [facility] Oxygen saturation in Arterial blood by Pulse oximetry 99 % 99 % [facility] Systolic blood pressure 107 mm[Hg] 107 mm[Hg] [facility] Diastolic blood pressure 63 mm[Hg] 63 mm[Hg] [facility] Heart rate 50 /min 50 /min [facility] Body height 174 cm 174 cm [facility] Body weight 77.111 kg 77.111 kg [facility] Body mass index (BMI) [Ratio] 25.47 kg/m2 25.47 kg/m2 [facility] Systolic blood pressure 104 mm[Hg] 104 mm[Hg] [facility] Diastolic blood pressure 70 mm[Hg] 70 mm[Hg] [facility] Heart rate 46 /min 46 /min [facility] Body temperature 36.17 Jayde 36.17 Jayde [facility] Respiratory rate 16 /min 16 /min [facility] Oxygen saturation in Arterial blood by Pulse oximetry 99 % 99 % [facility] Body height 172 cm 172 cm [facility] Body weight 80.287 kg 80.287 kg [facility] Body mass index (BMI) [Ratio] 27.14 kg/m2 27.14 kg/m2 [facility] Systolic blood pressure 92 mm[Hg] 92 mm[Hg] [facility] Diastolic blood pressure 59 mm[Hg] 59 mm[Hg] [facility] Heart rate 64 /min 64 /min [facility] Respiratory rate 16 /min 16 /min [facility] Oxygen saturation in Arterial blood by Pulse oximetry 97 % 97 % [facility] Body temperature 36.78 Jayde 36.78 Jayde [facility] Body height 172 cm 172 cm [facility] Body weight 82 kg 82 kg [facility] Body mass index (BMI) [Ratio] 27.72 kg/m2 27.72 kg/m2 [facility] Diastolic blood pressure 59 mm[Hg] 59 mm[Hg] DAVID ([facility]) Body height 69 [in_i] 69 [in_i] DAVID ([facility]) Body mass index (BMI) [Ratio] 26.5 kg/m2 26.5 k g/m2 DAVID ([facility]) Systolic blood pressure 97 mm[Hg] 97 mm[Hg] A THENA ([facility]) Body weight 179.2 [lb_av] 179.2 [lb_av] DAVID ([facility]) Diastolic blood pressure 59 mm[Hg] 59 mm[Hg] DAVID ([facility]) Body height 69 [in_i] 69 [in_i] DAVID ([facility]) Body mass index (BMI) [Ratio] 26.5 kg/m2 26.5 k g/m2 DAVID ([facility]) Systolic blood pressure 97 mm[Hg] 97 mm[Hg] A THENA ([facility]) Body weight 179.2 [lb_av] 179.2 [lb_av] DAVID ([facility]) Body height 68 [in_i] 68 [in_i] eCW1 ([facility]) Body weight 179.6 [lb_av] 179.6 [lb_av] eCW1 ([facility]) Body mass index (BMI) [Ratio] 27.31 kg/m2 27.31 kg/m2 eCW1 ([facility]) Body temperature 98.8 [degF] 98.8 [degF] eCW1 ( [facility]) Heart rate 86 /min 86 /min eCW1 ([facility]) Respiratory rate 18 /min 18 /min eCW1 ([facility]) Oxygen saturation in Arterial blood by Pulse oximetry 100 % 100 % eCW1 ([facility]) Body height 68 [in_i] 68 [in_i] eCW1 ([facility]) Body weight 180.6 [lb_av] 180.6 [lb_av] eCW1 ([facility]) Body mass index (BMI) [Ratio] 27.46 kg/m2 27.46 kg/m2 eCW1 ([facility]) Body temperature 98.2 [degF] 98.2 [degF] eCW1 ( [facility]) Heart rate 92 /min 92 /min eCW1 ([facility]) Respiratory rate 18 /min 18 /min eCW1 ([facility]) Oxygen saturation in Arterial blood by Pulse oximetry 100 % 100 % eCW1 ([facility]) Body height 68 [in_i] 68 [in_i] eCW1 ([facility]) Body weight 182.4 [lb_av] 182.4 [lb_av] eCW1 ([facility]) Body mass index (BMI) [Ratio] 27.73 kg/m2 27.73 kg/m2 eCW1 ([facility]) Body temperature 98.4 [degF] 98.4 [degF] eCW1 ( [facility]) Heart rate 78 /min 78 /min eCW1 ([facility]) Respiratory rate 18 /min 18 /min eCW1 ([facility]) Oxygen saturation in Arterial blood by Pulse oximetry 98 % 98 % eCW1 ([facility]) ID Date Data Source [id number] 03/22/2021 08:28:35 PM T [facility] Name Value Range Interpretation Code Description Data Source(s) TRANSFER FROM [facility] Patient Treatment Plan of Care Planned Activity Planned Date Details Description Data Source (s) Docusate Sodium 100 MG 06/24/2021 12:00:00 AM EST NETSMART ([facility]) oxyCODONE-Acetaminophen 5-325 MG 06/23/2021 12:00[facility]00 [facility] Acetaminophen Extra Strength 500 MG 06/23/2021 12:00:00 AM EST NETSLOGAN ([facility]) Venlafaxine HCl ER 150 MG 06/23/2021 12:00:00 AM EST NETSLOGAN ([facility]) TiZANidine HCl 4 MG 06/23/2021 12:00:00 AM EST NETSMART ([facility]) Carafate 1 GM 06/23/2021 12:00:00 AM EST NETSMART ([facility]) Prazosin HCl 1 MG 06/23/2021 12:00:00 AM EST NETSMART ([facility]) Rexulti 1 MG 06/23/2021 12:00:00 AM EST N ETSMART ([facility]) Protonix 40 MG 06/23/2021 12:00:00 AM EST NETSMART ([facility]) Multivitamin Adults 06/23/2021 12:00:00 AM EST NETSMART ([facility]) Mirtazapine 15 MG 06/23/2021 12:00:00 AM EST [facility]SMART ([facility]) Melatonin 10 MG 06/23/2021 12:00:00 AM EST NETSMART ([facility]) Levothyroxine Sodium 125 MCG 06/23/2021 12:00:00 AM EST [facility]SMART ([facility]) lamoTRIgine 25 MG 06/23/2021 12:00:00 AM EST NETSMART ([facility]) lamotrigine 25 MG Oral Tablet 05/21/2021 12:00:00 AM EDT eCW1 ([facility]) lamotrigine 25 MG Oral Tablet 05/21/2021 12:00:00 AM EDT eCW1 ([facility]) Acetaminophen 325 MG / Hydrocodone Bitartrate 7.5 MG O ral Tablet 05/04/2021 12:00:00 AM EDT [facility] Misoprostol 0.2 MG Oral Tablet 05/04/2021 12:00:00 AM EDT [facility] Methylcellulose 500 MG Oral Tablet 03/27/2021 12:00:00 AM EDT [facility] Lactobacillus rhamnosus GG [id number] UNT Oral Capsul e 03/27/2021 12:00:00 AM EDT [facility] brexpiprazole 2 MG Oral Tablet [Rexulti] 03/19/2021 12:00:00 AM EDT eCW1 ([facility]) brexpiprazole 2 MG Oral Tablet [Rexulti] 03/19/2021 12:00:00 AM EDT eCW1 ([facility]) brexpiprazole 2 MG Oral Tablet [Rexulti] 03/19/2021 12:00:00 AM EDT eCW1 ([facility]) brexpiprazole 2 MG Oral Tablet [Rexulti] 03/19/2021 12:00:00 AM EDT eCW1 ([facility]) brexpiprazole 2 MG Oral Tablet [Rexulti] 03/19/2021 12:00:00 AM EDT eCW1 ([facility]) brexpiprazole 1 MG Oral Tablet [Rexulti] 03/19/2021 12:00:00 AM EDT eCW1 ([facility]) brexpiprazole 1 MG Oral Tablet [Rexulti] 03/19/2021 12:00:00 AM EDT eCW1 ([facility]) brexpiprazole 1 MG Oral Tablet [Rexulti] 03/19/2021 12:00:00 AM EDT eCW1 ([facility]) brexpiprazole 1 MG Oral Tablet [Rexulti] 03/19/2021 12:00:00 AM EDT eCW1 ([facility]) Prazosin 1 MG Oral Capsule 02/13/2021 12:00:00 AM EDT eCW1 ([facility]) Prazosin 1 MG Oral Capsule 02/13/2021 12:00:00 AM EDT eCW1 ([facility]) [place] Carbonate 300 MG Oral Capsule 02/13/2021 12:00:00 AM EDT eCW1 ([facility]) Prazosin 1 MG Oral Capsule 02/13/2021 12:00:00 AM EDT eCW1 ([facility]) Levothyroxine Sodium 0.025 MG Oral Tablet 01/29/2021 12:00:00 AM ED T eCW1 ([facility]) 0.3 ML Epinephrine 1 MG/ML Auto-Injector [Epipen] 01/29/2021 12: 00:00 AM EDT eCW1 ([facility]) Levothyroxine Sodium 0.025 MG Oral Tablet 01/29/2021 12:00:00 AM ED T eCW1 ([facility]) 0.3 ML Epinephrine 1 MG/ML Auto-Injector [Epipen] 01/29/2021 12: 00:00 AM EDT eCW1 ([facility]) Levothyroxine Sodium 0.025 MG Oral Tablet 01/29/2021 12:00:00 AM ED T eCW1 ([facility]) 0.3 ML Epinephrine 1 MG/ML Auto-Injector [Epipen] 01/29/2021 12: 00:00 AM EDT eCW1 ([facility]) Misoprostol 0.2 MG Oral Tablet 08/04/2019 12:00:00 AM [facility] ferrous sulfate 325 MG Oral Tablet [facility] gabapentin 600 MG Oral Tablet [facility] quetiapine 25 MG Oral Tablet [Seroquel] DAVID ([facility]) Mirtazapine 15 MG Oral Tablet [Remeron] DAVID ([facility]) OneTouch Delica Lancets ATHE NA ([facility]) One Touch II Test strips ATH TENZIN ([facility]) [place] Carbonate 300 MG Oral Capsule DAVID ([facility]) Hair, Skin and Nails Advanced DAVID ([facility]) Biotin 10 MG Oral Tablet ATH TENZIN ([facility]) quetiapine 25 MG Oral Tablet [Seroquel] DAVID ([facility]) Mirtazapine 15 MG Oral Tablet [Remeron] DAVID ([facility]) OneTouch Delica Lancets ATHE NA ([facility]) One Touch II Test strips ATH TENZIN ([facility]) [place] Carbonate 300 MG Oral Capsule DAVID ([facility]) Hair, Skin and Nails Advanced DAVID ([facility]) Biotin 10 MG Oral Tablet ATH TENZIN ([facility])
== END 2021-07-01 00:39 | disposition left against medical advice (07) ==
LOC: M ED 22:13
DX: Z53.29 Procedure and treatment not carried out because of patient's decision for other reasons (principal)

== ENCOUNTER 2021-07-01 17:04 | Emergency (ER) | payer MEDICARE, MEDICAID ==
[~2021-07-01] VITALS: Ht 172.7 cm; Wt 87.6 kg
--- OUTSIDE RECORDS SUMMARY | 2021-07-02 00:07 | CCD ---
Author Author [facility] Organization [facility] Address Unknown Phone Unavailable Care Team Providers Care Registered Nurse Float Pool Name Role Phone Pam Baires Unavailable Pam Baires Unavailable Dequan, [...] Nell Cortes MD Unavailable Unavailable Essence, Nell oCrtes MD Unavailable Unavailable Essence, Nell Cortes MD [...] Nell Cortes MD Unavailable Unavailable Essence, Nell Cotres MD Unavailable Unavailable Essence, Nell Cortes MD [...] DE SOUZA MD Unavailable Unavailable SYMENOW, G SHERRILLOPHER PA Unavailable Unavailable SYMENOW, G CHRISTOPHER PA [...] MELVINA, JEFE FAIR Unavailable Unavailable MELVINA, JEFE FARI Unavailable Unavailable MELVINA, JEFE FAIR Unavailable Unavailable MELVINA, JEFE FAIR Unavailable Unavailable MELVINA, JEFE FAIR Unavailable Unavailable MELVINA, JEFE FAIR Unavailable Unavailable MELVINA, JEFE FAIR Unavailable Unavailable MELVINA, JEFE FAIR Unavailable Unavailable Mondom, Cari FAIR Unavailable Unavailable MondomCari MD Unavailable Unavailable MondomCari [...] Unavailable Unavailable SANDEEP BAZAN MD Unavailable Unavailable KEMALASANDEEP MD Unavailable Unavailable KEMALA, SANDEEP FAIR Unavailable Unavailable SANDEEP BAZAN MD Unavailable Unavailable [...] Unavailable WINSTON QUIROGA MD Unavailable Unavailable WINSTON QUIORGA MD Unavailable Unavailable WINSTON QUIROGA MD Unavailable [...] [facility]available [facility] Unavailable Unavailable COPELIN ANAYELI DOE MD Unavailable Unavailable KEEGAN FAIR, BRAYAN Unavailable Unavailable Karen SIBLEY MD Unavailable Unavailable COPEROSA IICesario MD Unavailable Unavailable COPELIN IICesario MD Unavailable Unavailable PAN, RASHAWN MADIHA PA [...] Unavailable BolDean calvert MD Unavailable Unavailable BolDean calvret MD Unavailable Unavailable BolDean calvert MD Unavailable Unavailable BolDean calvert MD Unavailable Unavailable Bolnehal S David MD Unavailable Unavailable Dean Willard MD Unavailable [...] Unavailable PATI, CAMILA DO Unavailable Unavailable PATI, CAIMLA DO Unavailable Unavailable PATI, CAMIAL DO Unavailable Unavailable PATI, CAMILA DO Unavailable [...] DO Unavailable Unavailable Morgan, Harley PA-C Unavailable Morgan, Harley PA-C Unavailable Morgan, Harley PA-C Unavailable Morgan, Harley PA-C Unavailable Morgan, Harley PA-C Unavailable MORAES, EDIS FABIEN RPA-C [...] MORAES, EDIS FABIEN RPA-C Unavailable Unavailable MORAES, DEIS FABIEN RPA-C Unavailable Unavailable Fly Aguilar Jr, [...] Unavailable Jeff Fly Bolaños MD Unavailable Unavailable Jfef Fly Bolaños MD Unavailable Unavailable Jeff Fly Bolaños Kashif MD Unavailable Unavailable Jeff Fly Bolaños Kashif MD Unavailable Unavailable Jeff Fly Bolaños Kashif MD Unavailable Unavailable Jeff Jr Bill Kashif FAIR Unavailable Unavailable Jeff Jr Bill Kashif MD Unavailable Unavailable Jeff Jr Bill Kashif MD Unavailable Unavailable Jeff Jr Bill Kashif MD Unavailable Unavailable Jeff Jr Bill Kashif MD Unavailable Unavailable Jeff JrFly Kashif MD Unavailable Unavailable Jeff Jr Bill Kashif MD Unavailable Unavailable Jeff Jr Bill Kashif MD Unavailable Unavailable Jeff JrFly MD Unavailable Unavailable Jeff Fly Bolaños MD Unavailable Unavailable Jeff JrFly MD Unavailable Unavailable Jeff JrFly Kashif MD Unavailable Unavailable Jeff Jr Bill Kashif MD Unavailable Unavailable Jeff Fly Bolaños MD Unavailable Unavailable Jeff Fly Bolaños MD Unavailable Unavailable Fly Aguilar Jr, MD Unavailable Unavailable Jonn Conrad MD Unavailable [...] by Article 27-F of the [facility] Public Health law. If you continue you may have access to information: Regarding HIV / AIDS; Provided by facilities licensed or operated by the [facility] Office of Mental Health; or Provided by the [facility] Office for People With Developmental Disabilities. If such information is present, then the following [facility] mandated warning applies: This information has [...] law may result in a fine or skilled nursing sentence or both. A general authorization for the release of medical or other information is NOT sufficient authorization for further disc losure. Allergies and Adverse Reactions Type Description Substance Reaction Status Data Source(s ) Seasonale (91) (Levonorgestrel-ethinyl Estrad) Seasona le (91) (Levonorgestrel- ethinyl Estrad) Seasonale (91) (Levonorgestrel-ethinyl Estrad) a ctive NETSMART ([facility]) bee venom (honey bee) bee venom (honey bee) bee venom (honey bee) active NETSMART ([facility]) Maxalt (rizatriptan) Maxalt (rizatriptan) Maxalt (rizatriptan) active NETSMART ([facility]) amitriptyline amitriptyline amitriptyline active NETSM ART ([facility]) Propensity to adverse reactions NO ALLERGIES ON FILE NO ALLERGIES ON FILE [facility] Propensity to adverse reactions LEVONORGESTREL-ETHINYL ESTRA D LEVONORGESTREL- ETHINYL ESTRAD Unknown [facility] Propensity to adverse reactions BEE VENOM PROTEIN (HONEY BEE) Ho huseyin bee venom Other Unknown [facility] Propensity to adverse reactions RIZATRIPTAN rizatriptan Swelling High [facility] Propensity to adverse reactions AMITRIPTYLINE Amitriptyline Swelling High [facility] Allergy to substance Severe Amitriptyline Hallucinations DAVID ([facility]) Allergy to substance Severe Amitriptyline Hallucinations DAVID ([facility]) Family History Family Member Name Family Member Gender Family Member Status Date o f Status Description Data Source(s) Unknown Female Condition Family Member Diabetes B on [facility] Unknown Female Condition Family Member Cancer B on [facility] Unknown Female Condition Family Member Hypertension Bon [facility] Encounters Encounter Providers Location Date Indications Data Source(s ) 06/23/2021 12:00:00 AM EST - 021 03:17:14 PM [facility] INPATIENT Attender: BILL GARNICA MD 5F-OR 06/13/2021 10:36:35 AM EDT [facility] INPATIENT Attender: Rashawn Lowry MDAdmitter: Rashawn summers MD 5F-1E 06/12/2021 01:00:00 AM EDT - 06/18/2021 05:03:00 PM EST [facility] Patient discharged. Outpatient Attender: GWEN DEVIRUTH 06/04/2021 10:00: 00 AM EDT [facility] Outpatient Attender: Ragini Watts 06/04/2021 09:01:00 AM EDT [facility] Outpatient [facility] 05/27/2021 12:00:00 AM EDT eCW1 ([facility]) Outpatient [facility] 05/27/2021 12:00:00 AM EDT eCW1 ([facility]) Outpatient Attender: GWEN CHIN 05/21/2021 10:00: 00 AM EDT [facility] Outpatient Attender: Ragini Watts 05/20/2021 01:00:00 PM EDT [facility] Outpatient [facility] 05/16/2021 12:00:00 AM EDT eCW1 ([facility]) Outpatient Attender: GWEN CHIN 05/05/2021 02:00: 00 PM EDT [facility] Outpatient [facility] 05/05/2021 12:00:00 AM EDT eCW1 ([facility]) Outpatient [facility] 05/05/2021 12:00:00 AM EDT eCW1 ([facility]) INPATIENT Attender: Jonn Conrad MDAttflores leo: CAMILA PATI DOAttender: SANDEEP BAZAN MDAdmitter: SANDEEP BAZAN MDConsultant: Kashif Aguilar JrConsultant: Rashawn Lowry MD 5F-1E 05/01/2021 10:26:00 PM EDT - 05/04/2021 04:32:00 PM EDT [facility] Patient discharged. INPATIENT Attender: JEFE Reardon leo: Jonn Conrad MDAttender: Cari De Souza MDAttender: CARI DE SOUZA MDAdmitter: Jonn Conrad MDConsultant: Rashawn Lowry MDConsultant: ANAYELI BADILLO IIConsultant: ANAYELI BADILLO II MDConsultant: Kevin Cervantes 5F-1E 04/25/2021 12:14:00 PM EDT - 04/28/2021 06:00:00 PM EDT [facility] Patient discharged. Emergency Attender: MADIHA CISNEROSeferrer: Ventura Gomez PA-C EMERGENCY ROOM-ER 04/24/2021 11:49:00 PM EDT - 04/25/2021 09:55:00 AM EDT [facility] Patient discharged. Outpatient Attender: ASHOK DEAL 04/20/2021 04:35:45 PM EDT [facility] Outpatient [facility] 04/15/2021 12:00:00 AM EDT eCW1 ([facility]) Emergency Attender: Harley Sherwoodferrer: Scott Gomez PA-C EMERGENCY ROOM-ER 04/12/2021 09:19:00 PM EDT - 04/13/2021 01:29:00 AM EDT [facility] Patient discharged. Outpatient Attender: Harley TRENTonsultant: [facility] [id number] 04/12/2021 09:06:00 PM EDT [facility] Outpatient Attender: GWEN JEAN FPRUTH 04/09/2021 10:00: 00 AM EDT [facility] David Willard MD: [id number], [place] [address], Ph. Attender: David Willard MD MA - [facility] - [facility] 04/07/2021 12:00:00 AM EDT DAVID ([facility]) David Willard MD: [id number] [facility] [address], [place] [address], Ph. [phone] Attender: David Willard MD MA - [facility] - [facility] 04/02/2021 12:00:00 AM EDT PR[place] ([facility]) Outpatient [facility] 03/28/2021 12:00:00 AM EDT eC ([facility]) Outpatient [facility] 03/28/2021 12:00:00 AM EDT eC ([facility]) INPATIENT Attender: FREDERICK GOODWIN MD 5F-GX 03/26/2021 05:43:40 PM EDT [facility] INPATIENT Attender: BRAYAN ALLISON MD 5F-GX 03/25/2021 09:53:3 9 AM EDT [facility] INPATIENT Attender: CARI DE SOUZA MDA ttender: Cari De Souza MDAttender: WINSTON QUIROGA MDAttender: Jonn Conrad MDAttender: MARTIN SIBLEY MDAttender: Martin Sibley MDAdmitter: Jonn Conrad MDConsultant: Rashawn Lowry MDConsultant: Kevin Cervantes 5F-1E 03/23/2021 03:25:00 PM E DT - 03/27/2021 04:11:00 PM EDT [facility] Patient discharged. Outpatient [id number] 03/22/2021 08:11:00 PM EDT [facility] Emergency Attender: WILLIE Lozada: Scott Gomez PA-C EMERGENCY ROOM-ER 03/22/2021 03:34:00 PM EDT - 03/23/2021 12:40:00 PM EDT [facility] Patient discharged. Outpatient Attender: GWEN JEAN [facility] 03/19/2021 09:49: 00 AM EDT [facility] Outpatient Attender: Abida Sherwoodferrer: Abida Gomez PA-C 03/19/2021 08:00:00 AM EDT [facility] David Willard MD: [id number], [place] [address], Ph. Attender: David Willard MD MA - [facility] - Main Office 03/18/2021 12:00:00 AM EDT DAVID ([facility]) David Willard MD: [id number], [address], [place] [address], Ph. Attender: David Willard MD MA - [facility] - [facility] 03/18/2021 12:00:00 AM EDT DAVID ([facility]) Preadmit Attender: Abida Gomez PA-C 03/14/2021 08:00 :00 AM EDT [facility] Outpatient [facility] 03/12/2021 12:00:00 AM EDT eCW1 ([facility]) Outpatient [facility] 03/11/2021 12:00:00 AM EDT eCW1 ([facility]) Outpatient Attender: GWEN CHINReferrer: Ventura Gomez PA-C EMERGENCY ROOM-LAB 03/10/2021 03:46:00 PM EDT - 03/10/2021 03:46:00 PM EDT [facility] Outpatient Attender: Abida Sherwoodferrer: Abida Gomez PA-C EMERGENCY ROOM-RIVCLI 03/10/2021 02:37:00 PM EDT - 03/10/2021 02:37:00 PM EDT [facility] Outpatient [facility] 03/10/2021 12:00:00 AM EDT eCW1 ([facility]) Outpatient [facility] 03/03/2021 12:00:00 AM EDT eCW1 ([facility]) Outpatient Attender: GWEN CHIN 02/13/2021 01:00: 00 PM EDT [facility] Outpatient [facility] 02/11/2021 12:00:00 AM EDT eCW1 ([facility]) Outpatient [facility] 02/04/2021 12:00:00 AM EDT eCW1 ([facility]) Outpatient Attender: JUVE FOOTE PA-C 01/31/2021 11:00:00 AM EDT [facility] Outpatient [facility] 01/30/2021 12:00:00 AM EDT eCW1 ([facility]) Outpatient [facility] 01/30/2021 12:00:00 AM EDT eCW1 ([facility]) Outpatient Attender: Pam Daniels: FABIEN SONI RPA-C EMERGENCY ROOM-RIVCLI 01/29/2021 01:00:00 PM EDT - 01/29/2021 01:00:00 PM EDT [facility] Outpatient Attender: Ragini Watts 01/29/2021 10:00:00 AM EDT [facility] Outpatient [facility] 01/29/2021 12:00:00 AM EDT eCW1 ([facility]) Outpatient [facility] 01/22/2021 12:00:00 AM EDT eCW1 ([facility]) Outpatient [facility] 01/21/2021 12:00:00 AM EDT eCW1 ([facility]) Outpatient [facility] 01/16/2021 12:00:00 AM EDT eCW1 ([facility]) Outpatient Attender: Pam Daniels: FABIEN SONI RPA-C EMERGENCY ROOM-RIVCLI 01/15/2021 08:03:00 AM EDT - 01/15/2021 08:03:00 AM EDT [facility] Outpatient [facility] 01/15/2021 12:00:00 AM EDT eCW1 ([facility]) Outpatient [facility] 01/15/2021 12:00:00 AM EDT eCW1 ([facility]) Emergency Attender: WILLIE Lozada: FABIEN HEART EMERGENCY ROOM-ER 06/04/2019 12:15:00 PM EDT - 06/04/2019 03:18:00 PM [facility] Patient discharged. Emergency Attender: DENNISE Lechugaer: ALEK HEART EMERGENCY ROOM-ER 05/10/2019 06:22:00 AM EDT - 05/10/2019 11:00:00 AM [facility] Patient discharged. Emergency Attender: MADIHA MANUEL EMERGENCY ROOM-ER 01/17/2018 12:13:00 AM EDT - 01/17/2018 02:40:00 AM [facility] Emergency Attender: MADIHA MANUEL EMERGENCY ROOM-ER 11/22/2017 09:40:00 PM EDT - 11/23/2017 02:25:00 AM [facility] Emergency Attender: WILLIE MANUEL EMERGENCY ROOM-ER 11/07 02:49:00 PM EDT - 11/19/2017 05:38:00 PM [facility] Emergency Attender: DENNISE MANUEL EMERGENCY ROOM-ER 08:49:00 PM EST - 09/30/2017 12:27:00 AM [facility] Outpatient Attender: FABIEN HEART EMERGENCY ROOM-LAB 0 08/25/2017 04:16:00 PM EST - 08/25/2017 04:16:00 PM [facility] Emergency Attender: OSKAR MANUEL EMERGENCY ROOM- ER 04/13/2017 09:15:00 PM EDT - 04/14/2017 01:54:00 AM [facility] Emergency Attender: DENNISE MANUEL EMERGENCY ROOM-ER 09:02:00 PM EDT - 03/21/2017 01:55:00 AM [facility] Emergency Attender: MADIHA MANUEL EMERGENCY ROOM-ER 12/30/2016 09:12:00 PM EDT - 12/31/2016 01:50:00 AM [facility] Medications Medication Brand Name Start Date Product Form Dose Route Admi nistrative Instructions Pharmacy Instructions Status Indications Reaction Description Data Source(s) Docusate Sodium 100 MG Docusate Sodium 06/24/2021 12:00:00 AM EST completed NETSMART ([facility]) Carafate 1 GM Carafate 06/23/2021 12:00:00 AM EST completed NETSMART ([facility]) TiZANidine HCl 4 MG TiZANidine HCl 06/23/2021 12:00:00 AM EST completed NETSMART ([facility]) Venlafaxine HCl ER 150 MG Venlafaxine HCl ER 06/23/2021 12:00:00 AM EST completed NETSMART ([facility]) Acetaminophen Extra Strength 500 MG Acetaminophen Extra Stre ngth 06/23/2021 12:00:00 AM EST 2.0 {tablet} completed NETSMART ([facility]) Rexulti 1 MG Rexulti 06/23/2021 12:00:00 AM EST 2.0 {mg} completed NETSMART ([facility] ) Prazosin HCl 1 MG Prazosin HCl 06/23/2021 12:00:00 AM EST 2.0 {m g} completed NETSMART ([facility]) oxyCODONE-Acetaminophen 5-325 MG oxyCODONE-Acetaminophen 12:00:00 AM EST 1.0 {tablet} completed N ETSMART ([facility]) lamoTRIgine 25 MG lamoTRIgine 06/23/2021 12:00:00 AM EST 50.0 {m g} completed NETSMART ([facility]) Protonix 40 MG Protonix 06/23/2021 12:00:00 AM EST completed NETSMART ([facility]) Levothyroxine Sodium 125 MCG Levothyroxine Sodium 06/23/2021 12:00: 00 AM EST completed NETSMART ([facility]) Melatonin 10 MG Melatonin 06/23/2021 12:00:00 AM EST 20.0 {mg} completed NETSMART ([facility]) Mirtazapine 15 MG Mirtazapine 06/23/2021 12:00:00 AM EST completed NETSMART ([facility]) Multivitamin Adults Multivitamin Adults 06/23/2021 12:00:00 AM EST completed NETSMART ([facility]) lamotrigine 25 MG Oral Tablet lamoTRIgine 25 MG lamoTRIgine 25 MG 05/21/2021 12:00:00 AM EDT 1.0 {tablet} active la moTRIgine 25 MG eCW1 ([facility]) lamotrigine 25 MG Oral Tablet lamoTRIgine 25 MG lamoTRIgine 25 MG 05/21/2021 12:00:00 AM EDT 1.0 {tablet} active la moTRIgine 25 MG eCW1 ([facility]) Acetaminophen 325 MG / Hydrocodone Nury trate 7.5 MG Oral Tablet HYDROcodone- acetaminophen (NORCO) 7.5-325 mg per tablet HYDROcodone-acetaminophen (NORCO) 7.5-325 mg per tablet 05/04/2021 12:00:00 AM EDT 1 {tbl} oral active Take 1 tablet by mouth every 6 (six) hours if needed for moderate pain or severe pain for up to 3 doses. [facility] Misoprostol 0.2 MG Oral Tablet miSOPROStoL (CYTOTEC) 2 00 mcg tablet miSOPROStoL (CYTOTEC) 200 mcg tablet 05/04/2021 12:00:00 AM EDT 200 ug oral active Take 1 tablet (200 mcg total) by mouth 4 (four) times a day. [facility] Methylcellulose 500 MG Oral Tablet methy lcellulose, laxative, (CITRUCEL) 500 mg tablet methylcellulose, laxative, (CITRUCEL) 500 mg tablet 12:00:00 AM EDT 1000 mg oral aborted Take 2 t ablets (1,000 mg total) by mouth 2 (two) times a day. [facility] Lactobacillus rhamnosus GG [id number] U NT Oral Capsule lactobacillus rhamnosus (PROBIOTIC EXTRA STRENGTH) 20 billion cell capsule lactobacillus rhamnosus (PROBIOTIC EXTRA STRENGTH) 20 billion cell capsule 03/27/2021 12:00:00 AM EDT 1 {capsule} oral aborted Take 1 capsule by [facility] 1 (one) time each day. [facility] brexpiprazole 2 MG Oral Tablet [Rexulti] Rexulti 2 MG Rexult i 2 MG 03/19/2021 12:00:00 AM EDT 1.0 {tablet} active Re xulti 2 MG eCW1 ([facility]) brexpiprazole 1 MG Oral Tablet [Rexulti] Rexulti 1 MG Rexult i 1 MG 03/19/2021 12:00:00 AM EDT 1.0 {tablet} active Re xulti 1 MG eCW1 ([facility]) brexpiprazole 1 MG Oral Tablet [Rexulti] Rexulti 1 MG Rexult i 1 MG 03/19/2021 12:00:00 AM EDT 1.0 {tablet} active Re xulti 1 MG eCW1 ([facility]) brexpiprazole 2 MG Oral Tablet [Rexulti] Rexulti 2 MG Rexult i 2 MG 03/19/2021 12:00:00 AM EDT 1.0 {tablet} active Re xulti 2 MG eCW1 ([facility]) brexpiprazole 1 MG Oral Tablet [Rexulti] Rexulti 1 MG Rexult i 1 MG 03/19/2021 12:00:00 AM EDT 1.0 {tablet} active Re xulti 1 MG eCW1 ([facility]) brexpiprazole 2 MG Oral Tablet [Rexulti] Rexulti 2 MG Rexult i 2 MG 03/19/2021 12:00:00 AM EDT 1.0 {tablet} active Re xulti 2 MG eCW1 ([facility]) brexpiprazole 1 MG Oral Tablet [Rexulti] Rexulti 1 MG Rexult i 1 MG 03/19/2021 12:00:00 AM EDT 1.0 {tablet} active Re xulti 1 MG eCW1 ([facility]) brexpiprazole 2 MG Oral Tablet [Rexulti] Rexulti 2 MG Rexult i 2 MG 03/19/2021 12:00:00 AM EDT 1.0 {tablet} active Re xulti 2 MG eCW1 ([facility]) brexpiprazole 2 MG Oral Tablet [Rexulti] Rexulti 2 MG Rexult i 2 MG 03/19/2021 12:00:00 AM EDT 1.0 {tablet} active Re xulti 2 MG eCW1 ([facility]) brexpiprazole 1 MG Oral Tablet [Rexulti] Rexulti 1 MG Rexult i 1 MG 03/19/2021 12:00:00 AM EDT 1.0 {tablet} active Re xulti 1 MG eCW1 ([facility]) Idalou Carbonate 300 MG Oral Capsule Idalou Carbonate 300 MG 02/13/2021 12:00:00 AM EDT 1.0 {capsule} suspended Idalou Carbonate 300 MG eCW1 ([facility]) Idalou Carbonate 300 MG Oral Capsule Idalou Carbonate 300 MG 02/13/2021 12:00:00 AM EDT 1.0 {capsule} suspended Idalou Carbonate 300 MG eCW1 ([facility]) Prazosin 1 MG Oral Capsule Prazosin HCl 1 MG Prazosin HCl 1 MG 02/13/2021 12:00:00 AM EDT 1.0 {capsule_at_bedtime} active Prazosin HCl 1 MG eCW1 ([facility]) Idalou Carbonate 300 MG Oral Capsule Idalou Carbonate 300 MG 02/13/2021 12:00:00 AM EDT 1.0 {capsule} active L ithium Carbonate 300 MG eCW1 ([facility]) Idalou Carbonate 300 MG Oral Capsule Idalou Carbonate 300 MG 02/13/2021 12:00:00 AM EDT 1.0 {capsule} suspended Idalou Carbonate 300 MG eCW1 ([facility]) Prazosin 1 MG Oral Capsule Prazosin HCl 1 MG Prazosin HCl 1 MG 02/13/2021 12:00:00 AM EDT 1.0 {capsule_at_bedtime} active Prazosin HCl 1 MG eCW1 ([facility]) Idalou Carbonate 300 MG Oral Capsule Idalou Carbonate 300 MG 02/13/2021 12:00:00 AM EDT 1.0 {capsule} suspended Idalou Carbonate 300 MG eCW1 ([facility]) Prazosin 1 MG Oral Capsule Prazosin HCl 1 MG Prazosin HCl 1 MG 02/13/2021 12:00:00 AM EDT 1.0 {capsule_at_bedtime} active Prazosin HCl 1 MG eCW1 ([facility]) Prazosin 1 MG Oral Capsule Prazosin HCl 1 MG Prazosin HCl 1 MG 02/13/2021 12:00:00 AM EDT 1.0 {capsule_at_bedtime} active Prazosin HCl 1 MG eCW1 ([facility]) Prazosin 1 MG Oral Capsule Prazosin HCl 1 MG Prazosin HCl 1 MG 02/13/2021 12:00:00 AM EDT 1.0 {capsule_at_bedtime} active Prazosin HCl 1 MG eCW1 ([facility]) Prazosin 1 MG Oral Capsule Prazosin HCl 1 MG Prazosin HCl 1 MG 02/13/2021 12:00:00 AM EDT 1.0 {capsule_at_bedtime} active Prazosin HCl 1 MG eCW1 ([facility]) Idalou Carbonate 300 MG Oral Capsule Idalou Carbonate 300 MG 02/13/2021 12:00:00 AM EDT 1.0 {capsule} suspended Idalou Carbonate 300 MG eCW1 ([facility]) Idalou Carbonate 300 MG Oral Capsule Idalou Carbonate 300 MG 02/13/2021 12:00:00 AM EDT 1.0 {capsule} suspended Idalou Carbonate 300 MG eCW1 ([facility]) Prazosin 1 MG Oral Capsule Prazosin HCl 1 MG Prazosin HCl 1 MG 02/13/2021 12:00:00 AM EDT 1.0 {capsule_at_bedtime} active Prazosin HCl 1 MG eCW1 ([facility]) Idalou Carbonate 300 MG Oral Capsule Idalou Carbonate 300 MG 02/13/2021 12:00:00 AM EDT 1.0 {capsule} suspended Idalou Carbonate 300 MG eCW1 ([facility]) Prazosin 1 MG Oral Capsule Prazosin HCl 1 MG Prazosin HCl 1 MG 02/13/2021 12:00:00 AM EDT 1.0 {capsule_at_bedtime} active Prazosin HCl 1 MG eCW1 ([facility]) Idalou Carbonate 300 MG Oral Capsule Idalou Carbonate 300 MG 02/13/2021 12:00:00 AM EDT 1.0 {capsule} suspended Idalou Carbonate 300 MG eCW1 ([facility]) Idalou Carbonate 300 MG Oral Capsule Idalou Carbonate 300 MG 02/13/2021 12:00:00 AM EDT 1.0 {capsule} active L ithium Carbonate 300 MG eCW1 ([facility]) Prazosin 1 MG Oral Capsule Prazosin HCl 1 MG Prazosin HCl 1 MG 02/13/2021 12:00:00 AM EDT 1.0 {capsule_at_bedtime} active Prazosin HCl 1 MG eCW1 ([facility]) Idalou Carbonate 300 MG Oral Capsule Idalou Carbonate 300 MG 02/13/2021 12:00:00 AM EDT 1.0 {capsule} suspended Idalou Carbonate 300 MG eCW1 ([facility]) Prazosin 1 MG Oral Capsule Prazosin HCl 1 MG Prazosin HCl 1 MG 02/13/2021 12:00:00 AM EDT 1.0 {capsule_at_bedtime} active Prazosin HCl 1 MG eCW1 ([facility]) Prazosin 1 MG Oral Capsule Prazosin HCl 1 MG Prazosin HCl 1 MG 02/13/2021 12:00:00 AM EDT 1.0 {capsule_at_bedtime} active Prazosin HCl 1 MG eCW1 ([facility]) Prazosin 1 MG Oral Capsule Prazosin HCl 1 MG Prazosin HCl 1 MG 02/13/2021 12:00:00 AM EDT 1.0 {capsule_at_bedtime} active Prazosin HCl 1 MG eCW1 ([facility]) Idalou Carbonate 300 MG Oral Capsule Idalou Carbonate 300 MG 02/13/2021 12:00:00 AM EDT 1.0 {capsule} suspended Idalou Carbonate 300 MG eCW1 ([facility]) Prazosin 1 MG Oral Capsule Prazosin HCl 1 MG Prazosin HCl 1 MG 02/13/2021 12:00:00 AM EDT 1.0 {capsule_at_bedtime} active Prazosin HCl 1 MG eCW1 ([facility]) Idalou Carbonate 300 MG Oral Capsule Idalou Carbonate 300 MG 02/13/2021 12:00:00 AM EDT 1.0 {capsule} suspended Idalou Carbonate 300 MG eCW1 ([facility]) 0.3 ML Epinephrine 1 MG/ML Auto-Injector [Epipen] EpiP en 2-Jacquelyn 0.3 MG/0.3ML EpiPen 2-Jacquelyn 0.3 MG/0.3ML 01/29/2021 12:00:00 AM EDT active EpiPen 2-Jacquelyn 0.3 MG/0.3ML [facility] Levothyroxine Sodium 0.05 MG Oral Tablet [...] active EpiPen 2-Jacquelyn 0.3 MG/0.3ML [facility]CW[facility] Levothyroxine Sodium 0.025 MG Oral Tablet Levothyroxin e Sodium 25 MCG Levothyroxine Sodium 25 MCG 01/29/2021 12:00:00 AM EDT active Levothyroxine Sodium 25 MCG [facility]CW[facility] 0.3 ML Epinephrine 1 MG/ML Auto-Injector [...] EDT active Levothyroxine Sodium 50 MCG eCW1 ([facility]) 0.3 ML Epinephrine 1 MG/ML Auto-Injector [Epipen] EpiP en 2-Jaqcuelyn 0.3 MG/0.3ML EpiPen 2-Jacquelyn 0.3 MG/0.3ML 01/29/2021 12:00:00 AM EDT active EpiPen 2-Jacquelyn 0.3 MG/0.3ML eCW1 ([facility]) Levothyroxine Sodium 0.05 MG Oral Tablet Levothyroxine Sodium 50 MCG Levothyroxine Sodium 50 MCG 01/29/2021 12:00:00 AM EDT active Levothyroxine Sodium 50 MCG eCW1 ([facility]) Levothyroxine Sodium 0.05 MG Oral Tablet Levothyroxine Sodium 50 MCG Levothyroxine Sodium 50 MCG 01/29/2021 12:00:00 AM EDT active Levothyroxine Sodium 50 MCG eCW1 ([facility]) Levothyroxine Sodium 0.05 MG Oral Tablet Levothyroxine Sodium 50 MCG Levothyroxine Sodium 50 MCG 01/29/2021 12:00:00 AM EDT active Levothyroxine Sodium 50 MCG eCW1 ([facility]) tizanidine 4 MG Oral Capsule tizanidine (ZANAFLEX) 4 M G capsule tizanidine (ZANAFLEX) 4 MG capsule 11/20/2019 12:00:00 AM EDT 4 mg Oral completed Right leg paresthesiasChronic right-sided low back pain with right-sided sciatica Take 1 capsule by mouth 3 (three) times daily. [facility] Right leg paresthesias Chronic right-sided low back pain with r ight-sided sciatica Take 1 capsule by mouth 3 (three) times daily. Misoprostol 0.2 MG Oral Tablet miSOPROStol 200 MCG Ora l Tablet (CYTOTEC) miSOPROStol 200 MCG Oral Tablet (CYTOTEC) 08/04/2019 12:00:00 AM EST 200 ug Oral active Take 1 tablet by anna th every 6 (six) hours [facility] Hair, Skin and Nails Advanced co mpleted Hair, Skin and Nails Advanced DAVID ([facility]) OneTouch Delica Lancets completed OneTouch Delica Lancets DAVID ([facility]) gabapentin 600 MG Oral Tablet gabapentin (NEURONTIN) 6 00 mg tablet gabapentin (NEURONTIN) 600 mg tablet 1200 mg oral aborted Take 1,200 mg by mouth 3 (three) times a day. [facility] ferrous sulfate 325 MG Oral Tablet ferrous sulfate 325 mg (65 mg iron) tablet ferrous sulfate 325 mg (65 mg iron) tablet 325 mg oral aborted Take 325 mg by mouth 1 (one) time each day with breakfast. [facility] One Touch II Test strips [id number] comple asher One Touch II Test strips DAVID ([facility]) Idalou Carbonate 300 MG Oral Capsule li thium carbonate 300 mg capsule Take 1 capsule 3 times a day by oral route. lithium carbonate 300 mg capsule Take 1 capsule 3 times a day by oral route. 1 capsule(s) completed lithium carbonate 300 MG Oral Capsule DAVID ([facility]) Biotin 10 MG Oral Tablet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 PANEL</td><td>Routine</td><td>05/02/2021 4:37 AM EDT</td><td></td><td> </td> 05/02/2021 04:37:00 AM EDT [facility] POCT GLUCOSE METER UNSOLICITED RESULTS <td>POCT GLUCOS E METER UNSOLICITED RESULTS</td><td>Routine</td><td>04/28/2021 12:51 PM EDT</td><td></td><td> </td> 04/28/2021 12:51:00 PM EDT [facility] POCT GLUCOSE METER UNSOLICITED RESULTS <td>POCT GLUCOS E METER UNSOLICITED RESULTS</td><td>Routine</td><td>04/28/2021 5:33 AM EDT</td><td></td><td> </td> 04/28/2021 05:33:00 AM EDT [facility] BLOOD COUNT COMPLETE AUTO&AUTO DIFRNTL WBC COUNT <td>H C CBC W/ DIFFERENTIAL</td><td>Routine</td><td>04/28/2021 4:34 AM EDT</td><td></td><td> </td> 04/28/2021 04:34:00 AM EDT [facility] COMPREHENSIVE METABOLIC PANEL <td>COMPREHENSIVE METABO LIC PANEL</td><td>Routine</td><td>04/28/2021 4:34 AM EDT</td><td></td><td> </td> 04/28/2021 04:34:00 AM EDT [facility] POCT GLUCOSE METER UNSOLICITED RESULTS <td>POCT GLUCOS E METER UNSOLICITED RESULTS</td><td>Routine</td><td>04/28/2021 12:00 AM EDT</td><td></td><td> </td> 04/28/2021 12:00:00 AM EDT [facility] POCT GLUCOSE METER UNSOLICITED RESULTS <td>POCT GLUCOS E METER UNSOLICITED RESULTS</td><td>Routine</td><td>04/27/2021 5:50 PM EDT</td><td></td><td> </td> 04/27/2021 05:50:00 PM EDT [facility] IRON <td>IRON AND TIBC</td><td>Ro utine</td><td>04/27/2021 2:08 PM EDT</td><td></td><td> </td> 04/27/2021 02:08:00 PM EDT [facility] FERRITIN <td>FERRITIN</td><td>Routine </td><td>04/27/2021 2:08 PM EDT</td><td></td><td> </td> 04/27/2021 02:08:00 PM EDT [facility] COMPREHENSIVE METABOLIC PANEL <td>COMPREHENSIVE METABO LIC PANEL</td><td>Routine</td><td>04/27/2021 2:08 PM EDT</td><td></td><td> </td> 04/27/2021 02:08:00 PM EDT [facility] TOXICOLOGY SCREEN, URINE <td>TOXICOLOGY SCREEN, URINE</td><td>Routine</td><td>04/27/2021 12:00 PM EDT</td><td></td><td> </td> 04/27/2021 12:00:00 PM EDT [facility] POCT GLUCOSE METER UNSOLICITED RESULTS <td>POCT GLUCOS E METER UNSOLICITED RESULTS</td><td>Routine</td><td>04/27/2021 11:47 AM EDT</td><td></td><td> </td> 04/27/2021 11:47:00 AM EDT [facility] POCT GLUCOSE METER UNSOLICITED RESULTS <td>POCT GLUCOS E METER UNSOLICITED RESULTS</td><td>Routine</td><td>04/27/2021 5:20 AM EDT</td><td></td><td> </td> 04/27/2021 05:20:00 AM EDT [facility] BLOOD COUNT COMPLETE AUTO&AUTO DIFRNTL WBC COUNT <td>H C CBC W/ DIFFERENTIAL</td><td>Routine</td><td>04/27/2021 4:56 AM EDT</td><td></td><td> </td> 04/27/2021 04:56:00 AM EDT [facility] BASIC METABOLIC PANEL CALCIUM TOTAL <td>BASIC METABOLI C PANEL</td><td>Routine</td><td>04/27/2021 4:56 AM EDT</td><td></td><td> </td> 04/27/2021 04:56:00 AM EDT [facility] POCT GLUCOSE METER UNSOLICITED RESULTS <td>POCT GLUCOS E METER UNSOLICITED RESULTS</td><td>Routine</td><td>04/26/2021 11:48 PM EDT</td><td></td><td> </td> 04/26/2021 11:48:00 PM EDT [facility] POCT GLUCOSE METER UNSOLICITED RESULTS <td>POCT GLUCOS E METER UNSOLICITED RESULTS</td><td>Routine</td><td>04/26/2021 6:48 PM EDT</td><td></td><td> </td> 04/26/2021 06:48:00 PM EDT [facility] POCT GLUCOSE METER UNSOLICITED RESULTS <td>POCT GLUCOS E METER UNSOLICITED RESULTS</td><td>Routine</td><td>04/26/2021 12:04 PM EDT</td><td></td><td> </td> 04/26/2021 12:04:00 PM EDT [facility] POCT GLUCOSE METER UNSOLICITED RESULTS <td>POCT GLUCOS E METER UNSOLICITED RESULTS</td><td>Routine</td><td>04/26/2021 4:57 AM EDT</td><td></td><td> </td> 04/26/2021 04:57:00 AM EDT [facility] BLOOD COUNT COMPLETE AUTO&AUTO DIFRNTL WBC COUNT <td>H C CBC W/ DIFFERENTIAL</td><td>Routine</td><td>04/26/2021 4:36 AM EDT</td><td></td><td> </td> 04/26/2021 04:36:00 AM EDT [facility] MAGNESIUM <td>MAGNESIUM</td><td>Routin e</td><td>04/26/2021 4:36 AM EDT</td><td></td><td> </td> 04/26/2021 04:36:00 AM EDT [facility] COMPREHENSIVE METABOLIC PANEL <td>COMPREHENSIVE METABO LIC PANEL</td><td>Routine</td><td>04/26/2021 4:36 AM EDT</td><td></td><td> </td> 04/26/2021 04:36:00 AM EDT [facility] POCT GLUCOSE METER UNSOLICITED RESULTS <td>POCT GLUCOS E METER UNSOLICITED RESULTS</td><td>Routine</td><td>04/25/2021 11:19 PM EDT</td><td></td><td> </td> 04/25/2021 11:19:00 PM EDT [facility] URNLS DIP STICK/TABLET RGNT AUTO W/O MICROSCOPY <td><c ontent ID="[id number]">URINALYSIS W/MICROSCOPIC & CULTURE IF INDICATED</content></td><td>STAT</td><td>04/25/2021 5:00 PM EDT</td><td></td><td><paragraph styleCode="header">Results for this procedure are in the <content styleCode="[id number]">results section</content>.</paragraph></td> 04/25/2021 05:00:00 PM EDT [facility] PROTHROMBIN TIME <td>PROTHROMBIN TIME NO THER APY OR UNKNOWN</td><td>STAT</td><td>04/25/2021 4:12 PM EDT</td><td></td><td> </td> 04/25/2021 04:12:00 PM EDT [facility] THROMBOPLASTIN TIME PARTIAL PLASMA/WHOLE BLOOD <td>PTT NO THERAPY OR UNKNOWN</td><td>STAT</td><td>04/25/2021 4:12 PM EDT</td><td></td><td> </td> 04/25/2021 04:12:00 PM EDT [facility] BLOOD COUNT COMPLETE AUTO&AUTO DIFRNTL WBC COUNT <td>H C CBC W/ DIFFERENTIAL</td><td>STAT</td><td>04/25/2021 4:12 PM EDT</td><td></td><td> </td> 04/25/2021 04:12:00 PM EDT [facility] TRIIODOTHYRONINE T3 TOTAL TT3 <td>T3</td><td>Routine</ td><td>04/25/2021 4:12 PM EDT</td><td></td><td> </td> 04/25/2021 04:12:00 PM EDT [facility] THYROID STIMULATING HORMONE TSH <td>TSH</td><td>STAT</ td><td>04/25/2021 4:12 PM EDT</td><td></td><td> </td> 04/25/2021 04:12:00 PM EDT [facility] THYROXINE FREE <td>T4, FREE</td><td>Routine </td><td>04/25/2021 4:12 PM EDT</td><td></td><td> </td> 04/25/2021 04:12:00 PM EDT [facility] MAGNESIUM <td>MAGNESIUM</td><td>STAT</ td><td>04/25/2021 4:12 PM EDT</td><td></td><td> </td> 04/25/2021 04:12:00 PM EDT [facility] LIPASE <td>LIPASE</td><td>STAT</td> <td>04/25/2021 4:12 PM EDT</td><td></td><td> </td> 04/25/2021 04:12:00 PM EDT [facility] COMPREHENSIVE METABOLIC PANEL <td>COMPREHENSIVE METABO LIC PANEL</td><td>STAT</td><td>04/25/2021 4:12 PM EDT</td><td></td><td> </td> 04/25/2021 04:12:00 PM EDT [facility] COLONOSCOPY <td>COLONOSCOPY</td><td></td ><td>03/27/2021 10:28 AM EDT</td><td></td><td> </td> 03/27/2021 10:28:41 AM EDT [facility] CUL BACT STOOL AEROBIC ADDL PATHOGENS&ID EA <td>ENTERI C PATHOGENS, PCR (FOR DX INSTEAD OF INITIAL STOOL CULTURE)</td><td>Routine</td><td>03/26/2021 4:15 PM EDT</td><td></td><td> </td> 03/26/2021 04:15:00 PM EDT [facility] BLOOD COUNT COMPLETE AUTOMATED <td>CBC</td><td>Routine </td><td>03/26/2021 4:28 AM EDT</td><td></td><td> </td> 03/26/2021 04:28:00 AM EDT [facility] MAGNESIUM <td>MAGNESIUM</td><td>Routin e</td><td>03/26/2021 4:28 AM EDT</td><td></td><td> </td> 03/26/2021 04:28:00 AM EDT [facility] BASIC METABOLIC PANEL CALCIUM TOTAL <td>BASIC METABOLI C PANEL</td><td>Routine</td><td>03/26/2021 4:28 AM EDT</td><td></td><td> </td> 03/26/2021 04:28:00 AM EDT [facility] UPPER GI ENDOSCOPY <td>UPPER GI ENDOSCOPY</td>< td></td><td>03/25/2021 10:41 AM EDT</td><td></td><td> </td> 03/25/2021 10:41:55 AM EDT [facility] UPPER GI NDSC DX W/WO COLLECTION SPECIMEN <td>EGD (ESOPHAGOGASTRODUODENOSCOPY)</td><td></td><td>03/25/2021 10:06 AM EDT</td><td> GI bleed</td><td></td> 03/25/2021 10:06:00 AM EDT - 03/25/2021 10:37:00 AM ED T [facility] BLOOD COUNT COMPLETE AUTO&AUTO DIFRNTL WBC COUNT <td>H C CBC W/ DIFFERENTIAL</td><td>Routine</td><td>03/25/2021 4:20 AM EDT</td><td></td><td> </td> 03/25/2021 04:20:00 AM EDT [facility] BASIC METABOLIC PANEL CALCIUM TOTAL <td>BASIC METABOLI C PANEL</td><td>Routine</td><td>03/25/2021 4:20 AM EDT</td><td></td><td> </td> 03/25/2021 04:20:00 AM EDT [facility] BLOOD COUNT COMPLETE AUTO&AUTO DIFRNTL WBC COUNT <td>H C CBC W/ DIFFERENTIAL</td><td>Routine</td><td>03/24/2021 4:29 AM EDT</td><td></td><td> </td> 03/24/2021 04:29:00 AM EDT [facility] MAGNESIUM <td>MAGNESIUM</td><td>Routin e</td><td>03/24/2021 4:29 AM EDT</td><td></td><td> </td> 03/24/2021 04:29:00 AM EDT [facility] COMPREHENSIVE METABOLIC PANEL <td>COMPREHENSIVE METABO LIC PANEL</td><td>Routine</td><td>03/24/2021 4:29 AM EDT</td><td></td><td> </td> 03/24/2021 04:29:00 AM EDT [facility] POCT GLUCOSE METER UNSOLICITED RESULTS <td>POCT GLUCOS E METER UNSOLICITED RESULTS</td><td>Routine</td><td>03/23/2021 10:25 PM EDT</td><td></td><td> </td> 03/23/2021 10:25:00 PM EDT [facility] BLOOD COUNT COMPLETE AUTO&AUTO DIFRNTL WBC COUNT <td>H C CBC W/ DIFFERENTIAL</td><td>STAT</td><td>03/23/2021 8:42 PM EDT</td><td></td><td> </td> 03/23/2021 08:42:00 PM EDT [facility] C-REACTIVE PROTEIN <td>C-REACTIVE PROTEIN</td>< td>Routine</td><td>03/23/2021 8:42 PM EDT</td><td></td><td> </td> 03/23/2021 08:42:00 PM EDT [facility] MAGNESIUM <td>MAGNESIUM</td><td>STAT</ td><td>03/23/2021 8:42 PM EDT</td><td></td><td> </td> 03/23/2021 08:42:00 PM EDT [facility] LACTATE <td>LACTIC ACID</td><td>Rout ine</td><td>03/23/2021 8:42 PM EDT</td><td></td><td> </td> 03/23/2021 08:42:00 PM EDT [facility] COMPREHENSIVE METABOLIC PANEL <td>COMPREHENSIVE METABO LIC PANEL</td><td>STAT</td><td>03/23/2021 8:42 PM EDT</td><td></td><td> </td> 03/23/2021 08:42:00 PM EDT [facility] OXYGEN DAILY PROTOCOL <td>OXYGEN DAILY PROTOCOL</td><td>Routine</td><td>03/23/2021 5:48 PM EDT</td><td></td><td></td> 03/23/2021 05:48:21 PM EDT [facility] OXYGEN DAILY PROTOCOL <td>OXYGEN DAILY PROTOCOL</td><td>Routine</td><td>03/23/2021 5:48 PM EDT</td><td></td><td></td> 03/23/2021 05:48:21 PM EDT [facility] MRI, lumbar spine, w/wo contrast 03/18/2021 12:00:00 A M EDT DAVID ([facility]) ECG ROUTINE ECG W/LEAST 12 LDS W/I&R 03/10/2021 12:00: 00 AM EDT [email or web address] ([facility]) Results ID Date Data Source [id number] 06/23/2021 04:24:24 PM EST [facility] Name Value Range Interpretation Code Description Data Arabella rce(s) Supporting Document(s) Discharge Summary [facility] PJQTKm3jFgKNQaXb64/RZAfgTQEwn7EtGMowKBj9MZkiIPKuJ2SsJUR9zU4yJLA0IMgBIlGuMwDnNIL5 lbm [file] FoXsVA7OKj8DVzL4RCI9zMFzOb5CMlcgSAFKDhThBI1DZIx= ID Date Data Source [id number] 06/20/2021 11:45:58 AM EST [facility] Name Value Range Interpretation Code Description Data Arabella rce(s) Supporting Document(s) Progress Notes [facility] EJRSDn4wVdJYWiHu07/GQBtvSWYju7RzBTcyACz1MTqyBMLkK6MnNPS8bL0rZHK3IRsIHjYcVkClXHHk lbm [file] Av6EOsN2RSUMYnEfUC2ESBz= ID Date Data Source [id number] 06/19/2021 03:46:37 PM EST [facility] Name Value Range Interpretation Code Description Data Arabella rce(s) Supporting Document(s) Progress Notes [facility] MZLTCj4qYpEMXwNd30/QZKnlPVEmx9LnBNroAId2TXdgQDWsJ8RwOYI3jU1zSJR1APkLPkFaFrAoDKNg lbm [file] XFluPUJqBvCtMS7PMq4IZbW4PKI5qJIiXt1DHlRkGZEEXmKlAF4DXVz= ID Date Data Source [id number] 06/19/2021 02:31:21 PM EST [facility] Name Value Range Interpretation Code Description Data Arabella rce(s) Supporting Document(s) Progress Notes [facility] PHSNCn6wYjWNCoBx15/WODikLTDqo3WpNIpwMVs8WVvhDDEjZ8WpGOL0gF8vKAV1WTeVSiKgAaZfAVEk lbm [file] FsFCIzJq6fBLGLXw6+LDngsFLnnZjxREEZXpX2MPx1RVlkTYQYLe6N ID Date Data Source [id number] 06/18/2021 05:42:44 PM EST [facility] Name Value Range Interpretation Code Description Data Arabella rce(s) Supporting Document(s) Nursing Note [facility] PQBAKi2rLjPZVqZc85/DCZmxGNEpy2AmBNivIHy2ZZlmPHQuJ0DoXAW8wI9eUTJ5YYsVRdOuRaBgDIKv lbm TnCwcHFkKoEZLeYrlNZkBzXBlwRpfrkPNhRA2TmZE2UULhL74kIPLnCREnQ9FoAOAzTMJ+Mz4JJJCasT UfXR7VYmnG0Vuqj1i8LS6p6O/kBivbbKgXfuyzVHDzY6AhMlfX8cRjisyKg2TjzH4N1o09j8ZI0c8Ro+ SaDUO7FHtd24x2kIca6JQK/3yFUZYKIaD+6T7dLeHu CFz6USq4MJ2OutwkzGXtHPWyK6QRsywrzxmqiVgEf4UD6il2nVpPbdFi3SEvvkAYP4ny1l4OzfYnoNyT 4HUOp+8EVOmA/FkFp6PGzG0JLgsrBO9+Pn8O+DzDSep4GcSvNbP7hRnGtXwh9B3F5zDcZ3mYStp4vvXB UEnL2L6dmmxORJ7gEHm5nDLFrwdudRFbG/1zMqc1vo VP3HV6ZLrOiexlReimxj+7OJMmPVJkNEmUyrtMJjVrEPanCDBeUEJoityP53VufhCG+5b8knVjakNxOk iDvzXi2/d6zvBp1cfIeHjL1JJTUEJ5UZDPZw5zlumZ5MVFJqwjEwx4++APEZa7EZRx1rq/GG9mkN/dz8 qmA6h2h2sYwSV4e38J/Ix9KNpv4J6OXVKKvdph/oRf dmPYgy73fOQbH4CiOrTdmN+/NFJtVb8Y+TzPi14D4bLBjBc8v7FT+tLoCb6RQAaRzgtwhsbbcKSiaK8L +8402O+qo7LLoNQvpHwjSg0CrbsWfbNkiXOxBMBy9Ma/GF6G97JV5ucaNp/Me/zyljlz/hahm0hSoel0 eJQaImMNWsusCvVT95hYVHoml4AG6+bdukTzgf5xkm mO/tbyKJER3wxMobwhkKVtA1pCQU714pqhYx7/oK2Pzx+YhPQMIGzhvAq7LW4kGaM99Fr/w9HwazlE/a gagNYmmgGpjQMioenL6X6bvCR/FFJ4mXFgUOEKbhoAp5x08ydjL+tIQvwQaQPE7/6lMfvt/BGoKkPMJe León+cLKNL0wcLafaPCTw2w/ShCH1WyoKg0QseOErEp [file] MDAwMDAxOTMwMyAwMDAwMCBuDQowMDAwMDIwNzQxID OxVZCvZF8RBgPqECDhNxF0NFCnPFRnAENuts2NIREaTMBnKUq7EfZrYJKfUENyKQd2plHtiQOgSCs6XU 9QO9VfnwRzCzMERl3Pr297EZC3VBXtTb8AV6svJn7dUANnLLIFRd5FNDl5DSLmQyLhH4DqVyScR9O7XM fsFhR7YaA7RoRyNoN9LKG+ROonCBQsYQNzXMV4GALu TZfhWPL2LUFpEJitQmH0GVJqTI3nSFUULv6+OHoczPNqyZrkDGTSJbZrBaLbIVdfSEMQFc1F ID Date Data Source [id number] 06/18/2021 03:51:43 PM EST [facility] Name Value Range Interpretation Code Description Data Arabella rce(s) Supporting Document(s) Progress Notes [facility] MIUSBo5iSyPLVxIe89/CGQrqRCWbv3DfJTvgBNe7KEltQOCpB4CjBYY8oG6gBBO8TSsHDeMjMqGlPPCl lbm [file] NwBa9qGWJJDb7+VKmmnAChtMyvYCSLGgL3BDF7OWhwLKJXHa9A ID Date Data Source [id number] 06/18/2021 02:56:01 PM EST [facility] Name Value Range Interpretation Code Description Data Arabella rce(s) Supporting Document(s) Care Plan [facility] FUNTDi3nGmQPByRc49/DJDhlOLGbk8OdKJhaCKg4VSasAYGxK3UuWBD9hY2kVGR5ZChXOmFpHaLtODOh lbm [file] OGUxYWIyYjhhMzljMDE+VJ4aKWl+Ec6Eb2LfdwR8gzRaIHanLJM8CL7QWOOBN0LKBv== ID Date Data Source [id number] 06/18/2021 12:31:07 PM EST [facility] Name Value Range Interpretation Code Description Data Arabella rce(s) Supporting Document(s) Progress Notes [facility] AKVCXl4xUrAYDrVi70/AECrlQBKxk1VyITmrJQf1YQtkGEWqG6UiVXW2fM3hJFG5JKnQJxVkBeEtTWJy lbm [file] ZrfBVQZr+vsH48/Ila8uEn9qhPYxUcfH/zI8/p [file] AgICAgICAgICAgICAgICAgICAgICAgICAgICAgICAgICAgICAgICAgICAgICAgICAgICAgICAgICAgIC GoIEIrGBNvAWSoEE8SWDQzYSAwZVAkNSGeSNJcFYCs ICAgICAgICAgICAgICAgICAgICAgICAgICAgICAgICAgICAgICAgICAgICAgICAgICAgICAgICAgICAg XVLiTZUvPJBeIHShRMKpXDDuTSDsAV9TTJNgDXOhLZMvOTHdDRHxJUHqCHUnDVVhEFTqVMWcBPOnSFXk ICAgICAgICAgICAgICAgICAgICAgICAgICAgICAgIC SjTMPkJCQlEVPvHEDcJRGqVGIqXWJtFIVdBFGzEYAbIB4QKDMwCZZgSJGaAWPvMCFgJXBgZMFgZIZeLD AgICAgICAgICAgICAgICAgICAgICAgICAgICAgICAgICAgICAgICAgICAgICAgICAgICAgICAgICAgIC FtMKUgPZGsXSSjNSBnFK9JLOFaFNFsLREuHDMwRUQj ICAgICAgICAgICAgICAgICAgICAgICAgICAgICAgICAgICAgICAgICAgICAgICAgICAgICAgICAgICAg RMWzYRDgCSWnIGHtDSWlFWFwRVZcSDNdCR1LUGLmSRHqVZUwTLBiIPDiUCSiUOJyJQJpLBGgATApMFEd ICAgICAgICAgICAgICAgICAgICAgICAgICAgICAgIC AlJGTcCPAaYFNoHWErMMGxDQYuPBQeEAWuQVWpTSDqMVOzRJ4JVFTwGQGaCDAuZFFdKXEsMYKtYJLzKX AgICAgICAgICAgICAgICAgICAgICAgICAgICAgICAgICAgICAgICAgICAgICAgICAgICAgICAgICAgIC VeFJQuNZZcFWRdSLNcNBZzCE6HOLIgMWOmYVSgZOSl ICAgICAgICAgICAgICAgICAgICAgICAgICAgICAgICAgICAgICAgICAgICAgICAgICAgICAgICAgICAg ULNdNKKbPVRqOAXnOLEbAOXvUFUcNCWqOUZaKT1PYWRaXXQeHLMbIBUdNMYdSJGpTRSaIZVyHCUhDUPc ICAgICAgICAgICAgICAgICAgICAgICAgICAgICAgIC AdAIOmNBJsPLKlNJRzFQCuAKLbICYoLPWcWJQoWWGeNICaACMeWX9QATWiOYWuCCYhPTVcWINcREDiFT AgICAgICAgICAgICAgICAgICAgICAgICAgICAgICAgICAgICAgICAgICAgICAgICAgICAgICAgICAgIC TuXZZgKMJkWDDsXOWeBIMqDWPxZH6AAK25mODof5B6 YPVuWT7glmw/Rb5QOIaxloFaoWGsYQ2ZXaBkNA6uki8LJzBqOR6fqp7VCKsHZyRnS4X1fJWfBCQjUPPH WwJkT67uXKcgMx96JCsfZYFyNtRnIPo5Oe4IMdNlB7iyOALwJpE1YNJiDkA2QINqDnX2OQGqBoUsGYUj JOGaMQXoUZDNIR7MYmRaE1LzyG46KJGNBj1+DQplbm VaDpxRKzN1FEIoi3SvDQf0WG7IMZWlRisum3TpOPwwEWLQCRhpVA6YUTS0BOC4DYRgAy5GDVJbZ949wb TrMU6ZPq0LUsFhKT5lbm2VLNuhOVZhYgwKQlx2SAdwGD0GwKOqMEgYsr4cqnYcxpVUj4NsdjDeyWVUnu ssGK9bJ6GaeJt5RUUIMZRKKV1lGFHlBQZbVKXfAqWs VJIkBQo9UrMFQPtXJvBtY5Caf3UoGzM9LUXbMmZsPLajCVThZnM7UA82hHbzAH5CGBWeQJQqCL15FFO3 OWGfZb8JAo2SKnPbDM9dcg3IGDuaDZFzGxeTQiw3KDoyKY3SeSEfL0EuzOKjd9nDYdMoW5HZGXW7RBUl De1HDJRvKvBkTHPqFPdoQQ9nQOPmPKVBvHkuffW8TO 4KLQ8whcBnSW8ZQnLbOm7sDu4NTcQqR4BfC8UsJLGfKFBIKCbaEI7VJSbaSL7lNM4Ju8UTgJWpvC1nel 5WXEOpFSHbUotomv2BKxyoD5B0hLfeSHBsSWTwINKIKMvmDN3CVUHsNHL0VGM0MSJrLVMLGiTmC74zGF 5MJ3Nvc20oOcR3NLAhQxUbCXuqEB06hDxwkqWohTMe oDtlLI0AYf0+PBzlhrSvYvzJLtfyWEMZRwKyMVoNJnOqDMTmIHGoRYLxCmG8PrLiAl1WCUKxMWZeHIIz PdDnAIRnTIKtVVnlTHUbOQXzIktkYXMeBWSyYU3ZToFoMQAzJSFfYbvsWBOdKCHsym0TIYPaOENlUOW0 VxNxMCFtTSUhZYgyEHZsIGOrHbP4XLYaPVQcWH6JIz KxCIBcVMV6DjGtBNKgQHNiro4MOPWmKINwOzVgTSFuIHKqZHGwKOzuAEJuFZS0CmG0CNIsHUUpBU2HVo LfZNRyMXz5PeReROIcKBFbny3YYPGuDGXsIBa3USIkROYzACFnRHxcGBBzTXAnSERfDFFeTWCfTS7UFz MoZLLqFMA7NapnVNQeKEBzyp8KLZVpLYDsAyV3RJNu QLKoRGKvWWuqOPDxCLSsSDP8QYBbOGHnYB5WXpQuXMWkCYH4OdSoSSOeTYAoob6FIDPkCYXpLLCiOYKi TMNoWYEiYAhfYULzMIQ9QIO4NUUeZAJvXA8MAmHaRDKnJKJ7BiOwSSUoTJFuun1YDZYgLGSnAPw5UzXa SMTcWCUzOJuiMOCeJBY6ZJR1SIVyRHVqQW2KYgIuCK HeKhg3GYMzRPOfMJMnfy9BUOLwZZGqCWafEUDeVAPiKCLwKEtbBSVqGFH7FTPbAVLySRWkDT9TWvNmIN GjTkeyXmZrWCJrWSXctq8IJEZgVGEbJNXqYaScHVPiAERkENwhKYFxQJHbEaK4MTWeGSKxLK1SBdBrHK UsRsQ8KYJiYASlPQZney1URQDhJUXuZWpaFAWvWUKm ZQChULdvWNVkKGYoFmylFUMeXBNjAU0GVeEhTUAyEhR1SNDjWCMcEPXnal6OBCZfDLSuRbIjHYReVXJn HAVsKJacRFFmBQF8YjN5CEBoVUMnLV8GXkIdTXYnMRD2DovhREApDULqbu7SSNUzUEU8ILn6QpYxDEZr PTLsMKxyAZGtSCZ6AOJeBVPpVLDaPL7CWrWgPGBhBB BtAbCeOSGqNUVxwp9LEEWcQVA2OdLvNuRhDXPjDYJqQFmwOLHqVAW1KNM4FOWlJIJqPB3FHuJeRMNnIH b8YHQpLVHtZODbsa2ZQHYsNIZ1JtD4JWXyWSXaZFUtLXygBDUuRTYtBtH3EUUmDEXlUU0VTiNtZKKfTA X7GtXzNMLxPMBdff7EWBCyRZB9HlNcYFBmNKSmNMVj BXejRMEwXJHeUpU7VZMvZEKeVI2BCyIqJERiGWD0IlnlYPGkHZKvkt2YCHAfAOT7YGEuTeGhEEKsZNHn EVmmUBZoUCE6Mhh5WURoSOQaAD8UPoIvIAPqPEW0EmkoTHVkRTXncp8RhAOgdKahxr2AVRlRHc0VaNnj GOU9ERqbXd9ejRW6ZCUlZLFJWb3WvhJzSRMyXNJKCF mlBDIrYCXnUwMsXQZ1AbX3VKFcBWD1T3C1DWB4FsfbTZQ7IeYiTyS8LAVcLvP4RjcnUdSkEsAaBSXbCb ZlARQjGpPyCVz5DZT+HV3iDFg+Gp3Xk2JbzbB0vvQeAHw9IDf3WV2PSOHJR4NHRo== ID Date Data Source [id number] 06/18/2021 07:42:06 AM EST [facility] Name Value Range Interpretation Code Description Data Arabella rce(s) Supporting Document(s) Progress Notes [facility] VEMURp0lMbHWOoJq93/HERsvRLDfm2SfOMzsTAl7XWtvTHNpW0SgDSO5xK7mOKX3GIbCScRxCaKcFUYn lbm [file] AgICAgICAgICAgICAgICAgICAgICAgICAgICAgICAg ICAgICAgICAgICAgICAgICAgICAgICAgICAgICAgICAgICAgICAgDQogICAgICAgICAgICAgICAgICAg ICAgICAgICAgICAgICAgICAgICAgICAgICAgICAgICAgICAgICAgICAgICAgICAgICAgICAgICAgICAg ICAgICAgICAgICAgICAgICAgICAgDQogICAgICAgIC AgICAgICAgICAgICAgICAgICAgICAgICAgICAgICAgICAgICAgICAgICAgICAgICAgICAgICAgICAgIC AgICAgICAgICAgICAgICAgICAgICAgICAgICAgICAgDQogICAgICAgICAgICAgICAgICAgICAgICAgIC AgICAgICAgICAgICAgICAgICAgICAgICAgICAgICAg ICAgICAgICAgICAgICAgICAgICAgICAgICAgICAgICAgICAgICAgICAgDQogICAgICAgICAgICAgICAg ICAgICAgICAgICAgICAgICAgICAgICAgICAgICAgICAgICAgICAgICAgICAgICAgICAgICAgICAgICAg ICAgICAgICAgICAgICAgICAgICAgICAgDQogICAgIC AgICAgICAgICAgICAgICAgICAgICAgICAgICAgICAgICAgICAgICAgICAgICAgICAgICAgICAgICAgIC AgICAgICAgICAgICAgICAgICAgICAgICAgICAgICAgICAgDQogICAgICAgICAgICAgICAgICAgICAgIC AgICAgICAgICAgICAgICAgICAgICAgICAgICAgICAg ICAgICAgICAgICAgICAgICAgICAgICAgICAgICAgICAgICAgICAgICAgICAgDQogICAgICAgICAgICAg ICAgICAgICAgICAgICAgICAgICAgICAgICAgICAgICAgICAgICAgICAgICAgICAgICAgICAgICAgICAg ICAgICAgICAgICAgICAgICAgICAgICAgICAgDQogIC AgICAgICAgICAgICAgICAgICAgICAgICAgICAgICAgICAgICAgICAgICAgICAgICAgICAgICAgICAgIC AgICAgICAgICAgICAgICAgICAgICAgICAgICAgICAgICAgICAgDQogICAgICAgICAgICAgICAgICAgIC AgICAgICAgICAgICAgICAgICAgICAgICAgICAgICAg JCUqEDHmSFBpFWUjNFWzYZUsWLAzSRLdEOMcVMPtXEOpIMXxZJRiWDGpONHoTDCzDFl6S4cvSUKyPALf GE1aHMc1Ul5+XEkGQmEsFEM5vvFeaY8MNK3xy4SbUOnxMYPro6KgRUk0EN8PCFQcBJcnTL9RBGxzui5J KVLtNFUrsULHa9vxYxRxOSZ7BFTyYtukXF0KPTQmH3 sfhrQbTSXdMXWZBCbkGHFVUJ5YHlOmL8HlaE59ZHNZBr4+DMyhchClPgjJCcRtCVDgy8NtYBd9PY4UNX PiXhion6LoOuSlDAGHKFuzLN6LJTJ3VJUkHCLcKn0PDIFdS043eeMrQL2SBt4FAyUfHX0hwo2HHhQrVM PyEhrDJia7NRbfUQ3ZhVYqVJlIdu7vfcMoapQAn0Uw pvPbqLOManroaLIwOEGEi9jxNPZDEfUgUYSgCCRlMW9iAVOyJUD5PlRlKGKXZF9ESMQzZTYcjSWcBQSt DAYDPL5TTJwoZOV0AvemcsIeuCGtURuwXJ5UWQSfbgViEpIdCGLGZRi+Mp5AZS3bk2OyFSyhPZQeNZ5x hb5SINkFYoDkR2Q6qNDkO4V2PHtjOe9GZTTzENRqKe ZiPAGIULdlIS6ORK3dylX2QU3VxPYvHAJpVKGawWCvQRc6Q92jdGVnXLtyRI5NBAO+Mau+Db3LNTPbHY UyFMBdDxQeVXQWQmOeH3QlI7SHa9TpV9SzMM23bOvjjcXwNAleAH4LKR9tOPZcMDYFHQ8KpNSmhX3hnv UaSgQxLZLYEaYwP66qrQUoQHKvTGGfINXkZx9PNDRv Y3NniyYnzKqtcsPyETGxYTOBQI8XBSdgqgKqbMExfPdwLE69bRhsUI9VGo1MOtNoHD2fto3AgCNbKz7N IBVwPN1GIILzWDDrBLYkDYX0NOVrLiPfXNkdVLKjOFOlOUB1AJGgGVGhVO7ODaRhAFVyYlD0ATScWPHj BPPfyw9PMTLuNUFbMnRwUHYxAQUjUNDvTGdtCMHjCK KoWJY1SVEhBFKyTE3BNqChWVJtOCHsKnMrOQInTOZwnx0SVZBrMNUoBuS0RDYyAFGgPNHhZDsyKGFrST D7MYE6QGNjUNZoEJ4YVuGfEDWiKAAkNIGiTQXhMPUqbt4HPIXaNHMsZkAxLSAbOOZaXAClRJvkAAOxGD X7NgMfMHTrOJVvTG4VZjTaIULqFTOiWPOkSXEjBIYa sa3EAVVyLBGuMvH4VhZjTNWoUNSyQNgwAJDeWLE4ADBnQYKmVECiGB4TYcVyMDLjJMp5IyOeEBWlBYQr ny0BHHCyRJAeMBD5SXByERQvEVKoZPvcNGYgUMK5AVNnXLNhMHTeMT6IAdGnLAPcHRonRTCpHLNqFQEf gb8UMILoXRNjOQG1MQLtPBTiXMPxDOzfLANaZZSrMh YuKECrOEItJU5WVpQmVFKwHTS0EfJpKIGpZEHiru5YJKRkMKQtYvvwNwEhQWRhHWHaVFurEYTwHOA8RI V5YXLtCBAoXB3YGxYzOKFbEmOkVMmvUUAxYAMclf5BNGSxYEBkBMOiSHMsNDEnWHDwRXyoSCGlGXT9Yb F8RITaRXXaEJ9PRqLcGVSlOva2XDBfHXMuJKLftn5F YHXjCKOhJUkqPgGuEPRrURNoWRapCINsKSEdWBW7HBSeEBBnLB5XKbBzGHSqJhDdRuGhRZRnEHRlwn4L ONDaZBGeUTFnAQTfGCPsZXAhGVtvHHCcQLRtXExxXSQaYCPbCA6QOvYmSJYpLvEwWNBrXPDtACFsua2L MTNpPUCaMtI2CVMrVLLmKVTqMDrjIPGcGPFbMJF8WM RkABFrIV2WYnKlRLjwHISJQcb9TXibQ3v5WEZlEB1TV3Tgl7ZkGhQrHYNKEBmhXE6ailNrRXKgZx6XT0 tMDphkLFR7SMX6XjT9L9GhFQVpXOx1QWRrTOciODgjOiliZw7dUGFfTIc4HfHnKTJwJ6V4BCTwGMCuHb JtGMAxDGLvPYY8VcZxXJ5FFt1UBgV1TGT9xSZfGx0XAjL4BnrCBuKgKP5EILo= ID Date Data Source [id number] 06/18/2021 07:41:41 AM EST [facility] Name Value Range Interpretation Code Description Data Arabella rce(s) Supporting Document(s) Progress Notes [facility] ODZTAq9xXhTXCxHv30/QADheWTYtm6BzLBglIBc4NMscHTYgB1OtXEZ0fX3pQYB5CUcENsJkUkNxXHAu lbm [file] AgICAgICAgICAgICAgICAgICAgICAgICAgICAgICAgICAgICAgICAgICAgICAgICAgICAgICAgICAgIC AgICAgICAgICANCiAgICAgICAgICAgICAgICAgICAg ICAgICAgICAgICAgICAgICAgICAgICAgICAgICAgICAgICAgICAgICAgICAgICAgICAgICAgICAgICAg ICAgICAgICAgICAgICAgICAgICANCiAgICAgICAgICAgICAgICAgICAgICAgICAgICAgICAgICAgICAg ICAgICAgICAgICAgICAgICAgICAgICAgICAgICAgIC AgICAgICAgICAgICAgICAgICAgICAgICAgICAgICANCiAgICAgICAgICAgICAgICAgICAgICAgICAgIC AgICAgICAgICAgICAgICAgICAgICAgICAgICAgICAgICAgICAgICAgICAgICAgICAgICAgICAgICAgIC AgICAgICAgICAgICANCiAgICAgICAgICAgICAgICAg ICAgICAgICAgICAgICAgICAgICAgICAgICAgICAgICAgICAgICAgICAgICAgICAgICAgICAgICAgICAg ICAgICAgICAgICAgICAgICAgICAgICANCiAgICAgICAgICAgICAgICAgICAgICAgICAgICAgICAgICAg ICAgICAgICAgICAgICAgICAgICAgICAgICAgICAgIC AgICAgICAgICAgICAgICAgICAgICAgICAgICAgICAgICANCiAgICAgICAgICAgICAgICAgICAgICAgIC AgICAgICAgICAgICAgICAgICAgICAgICAgICAgICAgICAgICAgICAgICAgICAgICAgICAgICAgICAgIC AgICAgICAgICAgICAgICANCiAgICAgICAgICAgICAg ICAgICAgICAgICAgICAgICAgICAgICAgICAgICAgICAgICAgICAgICAgICAgICAgICAgICAgICAgICAg ICAgICAgICAgICAgICAgICAgICAgICAgICANCiAgICAgICAgICAgICAgICAgICAgICAgICAgICAgICAg ICAgICAgICAgICAgICAgICAgICAgICAgICAgICAgIC AgICAgICAgICAgICAgICAgICAgICAgICAgICAgICAgICAgICANCiAgICAgICAgICAgICAgICAgICAgIC AgICAgICAgICAgICAgICAgICAgICAgICAgICAgICAgICAgICAgICAgICAgICAgICAgICAgICAgICAgIC AgICAgICAgICAgICAgICAgICANCjw/vPTyP2gduHDg xnD4M1okPy5JPp1KFY1rm9TeMVLwZYtbslSiMvdHFsNtTEYbOokGDoo7SVkbQV0MxDGaW3CaK9GfEPsq GB2OIVRrUWKxdOCjRUXgXRPoXpF2DYFhJDazPD3FnBNsDJokVTKqLYHaKaZbSXCjRK3CHOXyO909mvOx Il8NCi5LUiEfYU4kvh8LMuZeUCHfKqfDCik7TEdzXB 6HlROwbCCyInXgLOGAYvYjR8tlz7KnZfWvGHOTOPzvJT6Mz3FhhJDbGRe+Jg5SEB7be7AiFMzwLoSzQU 9nbp2VGCbPUgChF1HnwAznCMFsa3ozYCXaYT5ibTYcRGM2XXKgbxdgeGszKNE6krgwNRXAUZWiyIWkXC 94YxDkWwDvOBT1LCKnAC0iQDkqGI0EVRO6TSxqAINq BDEgY0aMAvJoOQdfVVPzvJmhVB9OGnGsF7YcccKlxDEcHMJzUMVXXb4+KGzijwLqQldJIdX6YVFys8Kb GBr5ZE2VQZVbZBvbCN9VNLRuhY5mMAmnAR6AGeGeAhFnEOWCSgCzX93jyNKaCAm9I7JhOzSgXIXyFuhi ZXMgPDwvTmFtZXMgWyBdDQogID4+ID4+KIvyOR3UDS jicvHpDNTdDa1WWMObJYVxFU5cANXfAGDpM9E7pCacBHLKZgGeN5dyphelUG5nSPNcJ355dJnxvvOzFS W9MIDyOn9BBVZtAXZ1JVRgrSEyMeToGPKGKXumTK6AeVCbGDL0qF3cBHslZSRmVSRbB8nVAlCtsGtzYQ 51bGwgbnVsbCBdDQo+Vi3DBV7vc6IeAKr5rvQzLHcm DIZ3QCceGAZfGOUaLOOxDGG6ARI2IIHECsPiONPtTEHyEHknCIZbOVNdrt7KRTUrQNFnTDrwPTCmVHJj CVCoKOptUMYcDLD1AzEiBWJtDUMeCL3GCpIqBDSlGVSuGGxvJANsEBTjkt2QUHSyNICeRiT2AcNnCDQg LFPbKNlzSLVnLJWxNcuaGYKyESMvTY0AZzPyLQHeSB KjFOCvPJYsJWJnjf4LZOLlNLSmTUTqWXTaZCQbVDTfOQrqRLCqOBJ1ABo9LXYfDXFbWY8QDpNyEKJyKK D8HsptGHMkYFFlnf4YRDDvZWCzBry4OsZjHWGlZCAiGDpuERDvJRN2MSIoCVNvKEQhTY6NEqBbVBIqPQ mdOcCqGMEnWBErgw2GISJuPMLsVVUbTiAuFBDdDAQh GPgrARCoEDG3KJDfKYUnASIwRH5ZHsUoGPWqDYzqRjSeKUIwLNRkpj8QAKVgOQEzWHD7QyMlNYXiNRBf GGybXQJlWXH9PIN7TIBkDCAsTZ8IRjYmWDSvWnC3JDWmWDEvWYWkuh5TVDDjYKBkXms1GLPkQZTaLZEt LNysDVTzYXU4OkD5PQMxQIVuES4BVlUqBACsXpn4JQ UsCATcVUWewf8BBGBhDZOrSPE9ChOsSVQgZNPoPAnyJJZoUTB6YKT9YPTxJRVtSB7EVhKqNMQdRxp2Dk HkWZXwIRVbmo2PZBZoTTUnTJP9NxSbADXuCQZvIVmkOPDrVVT8ANPlABJbEAFyLG9EQvGtSAWiGcPeAy EnQUMjSFTajk6DZHQkHQIhAZl0BNDrAQRsJPJiRXqa MUCkGAR2IRe5BIOgLNDbLS1HMuNnIVGgVmD1LNXkTAWwGBWmqr5WZDZzKILmWTP8WPGyZGEzTOCeRDov YODjQCE4Pqm2LNYfYSEmBM1BTtOtRLRkMrPjYaIlSBUqTPWzak1GEFReDXTqKzjqCoQvSJZsUGIkZOrk KVChYOF3Xwg0AJBbJPNpMO1LKzBcDDZgLne2PznqFX UqYMWigg8MrUKlcCkgru1SODcURv5LvRjeEZS6MMfdEp9cdCWzKyAnMQFHGk0CsaAtTFUiEQHXNZbzXA VbKFg4HBHxDStiMjEfKTRhEalxG9AmMgzbYSFmKYTeIIHfFrQ4Dnt0XeH3KSIuJ2F7EjZvCCUkYlF2Wl Z5IhWgFBDlWAQ+JZ1uZOx+Cm6Tn4ZwsyC7mvNbLNnvRSB8CZ5YTPIHG3XCQo== ID Date Data Source [id number] 06/18/2021 07:34:15 AM EST [facility] Name Value Range Interpretation Code Description Data Arabella rce(s) Supporting Document(s) Progress Notes [facility] CUOPRl7eRpSDBiXb81/FBEutXOGzm5MyQUfdAIc3HZcjYWMgJ9CfLEK0wE3mVVC4OStCDjFvNxCwQRMj lbm [file] GfHuCX4JWu3AVnZ5GRE5iKKyIw3GUfX0YeZEEfGpXS2ALSe= ID Date Data Source [id number] 06/18/2021 06:27:38 AM EST [facility] Name Value Range Interpretation Code Description Data Arabella rce(s) Supporting Document(s) Nursing Note [facility] MEVNDd0aSzZPVdAk88/HKCqwKQNmg9KdOCnxKSq3OPzrXXDzY0YoOWY8nK1gHDF6COfUDvEpHwUmQHAv lbm [file] NjU+WX6kXIt+Rx9Xt5EwruX8ckZmMCynGTQbVU0CXMMJN2IXAu== ID Date Data Source [id number] 06/18/2021 06:05:00 AM EST [facility] Name Value Range Interpretation Code Description Data Arabella rce(s) Supporting Document(s) Phosphorus 3.0 mg/dl 2.5-4.9 Normal (applies to non-numeric resul ts) [facility] The above 1 analytes were performed by [facility] [id number] [facility], ,[place] [address] ID Date Data Source [id number] 06/18/2021 05:51:00 AM EST [facility] Name Value Range Interpretation Code Description Data Arabella rce(s) Supporting Document(s) Magnesium 2.1 mg/dl 1.6-2.6 Normal (applies to non-numeric resul ts) [facility] The above 1 analytes were performed by [facility] [id number] [facility], ,[place] [id number] ID Date Data Source [id number] 06/18/2021 05:51:00 AM EST [facility] Name Value Range Interpretation Code Description Data Arabella rce(s) Supporting Document(s) AST 14 IU/L 15-37 Below low normal [facility] Sulfasalazine and sulfapyridine have the potential to falsely depressAspartate Aminotransferase results. Baseline values before medication administration are recommended. ALT 35 IU/L 13-56 Normal (applies to non-numeric resul ts) [facility] Sulfasalazine and sulfapyridine have the potential to falsely depressAlanine Aminotransferase results. Baseline values before medication administration are recommended. Alkaline Phosphatase 82 mIU/ml 50-136 Normal (applies to non-num madiha results) [facility] Total Bilirubin 0.30 mg/dl 0.20-1.00 Normal (applies to non-numeric results) [facility] Blood Urea Nitrogen 9 mg/dl 7-18 Normal (applies to non-nume ny results) [facility] Creatinine 0.70 mg/dl 0.51-0.95 Normal (applies to non-numeric resul ts) [facility] N-Acetylcysteine (NAC) and Metamizole em ve the potential to falselydepress Creatinine results. Baseline values before medication adminstration are recommended. Patients undergoing treatment with phenindione will have falselydepressed results. Patients on phenindione therapy should be tested with an alternativeCREA method.Toxic levels of acetaminophen may lead to falsely depressed results forpatient samples. Glomerular Filtration Rate >90.00 mL/min/1.73m2 [facility] GFR Reference Ranges:Normal Function or [...] of Health and the National [employer]ney[employer]. The Elsie method used in calculating this result is traceable to [employer] standards. Glucose 111 mg/dl 70-110 Above high normal [facility] Sulfasalazine has the potential to false ly depress Glucose results. Sulfapyridine has the potential to falsely elevate Glucose results. Baseline values before medication administration are recommended. Calcium 8.2 mg/dl 8.5-10.1 Below low normal [facility] Total Protein 6.2 g/dl 6.4-8.2 Below low normal [facility] Albumin 2.2 g/dl 3.4-5.0 Below low normal [facility] Sodium 137 mEq/L 136-145 Normal (applies to non-numeric resul ts) [facility] Potassium 3.9 mEq/L 3.5-5.1 Normal (applies to non-numeric resul ts) [facility] Chloride 106.0 mEq/L 98.0-107.0 Normal (applies to non-numeric resu lts) [facility] Anion Gap 7.2 [facility] Carbon Dioxide 27.7 mMol/L 21.0-32.0 Normal (applies to non-numeric results) [facility] The above 16 analytes were performed by [facility] [id number], ,[place] [address] ID Date Data Source [id number] 06/18/2021 01:45:35 AM EST [facility] Name Value Range Interpretation Code Description Data Arabella rce(s) Supporting Document(s) Care Plan [facility] GAYKVg9sDiFIMxGx94/VWXjbQHPvc2EqOCufKEo4CAlvKURjP4VwJWA9cW8pGOR1DIvHOqGhZjIxAOAb [facility] [file] P7LTCrRaGmXUS2XNCcTiDeVlW2NLq6UY9hEKFLVa2+OFsszTJyrWbsWGLOXdUaHBt9CVofSDDXMx9G ID Date Data Source [id number] 06/17/2021 06:56:17 PM EST [facility] Name Value Range Interpretation Code Description Data Arabella rce(s) Supporting Document(s) Nursing Note [facility] PDGGTh7jHhFNTaLb14/ZHPxpNBSwk6KwGVheUMw1XXjkVSWtV5JvHKI2yY3xUOV8KMsYVjKeRaUmZVB0 lbm XpIhrHSpNrOITmZkvWAoJrBBwvOhtsjTEfDP4ChGP8KMVeF85xCPKxHNYxF6WwKBAlHLy+Xd7RWPEmdK DkYN3JCoxP1KnrC1vkYB+ftP/dThdNkPPDv2mVSTazBY7Qn3vxVp+IbbSNI1j/busey7L4ke5lQzXKlA half-way/Nh47j4oxm6DCO1+v8gGHMIOFh/jJyavxspwW8M [file] E5UuKrJCZiRsUfNOTxQL3bACFGAx7+VKstbCEhiGwtLQPDQeOxNAW0VSmbYOKXWo3N ID Date Data Source [id number] 06/17/2021 03:56:43 PM EST [facility] Name Value Range Interpretation Code Description Data Arabella rce(s) Supporting Document(s) Progress Notes [facility] DVCQEg9hGyENKsZl68/BPYwuOOLcv6CfLVmsRWq0TSnsIFZjI2NxSAN9tG3gJVD2FAaIPxLeGiWfGKJ8 lbm [file] o= ID Date Data Source [id number] 06/17/2021 12:31:39 PM EST [facility] Name Value Range Interpretation Code Description Data Arabella rce(s) Supporting Document(s) Care Plan [facility] YLYNJo0cBeWYWsZf25/MTZzuRAOed6TxTHgpEWc2NGdiOITpP3YiWNY6rB3hFLS0TTlAZfVaKkEmDKK5 lbm [file] stopper maker+1WySHyrIVWhW4pWUf2+33/3UPZwyKBAjt9T046 [file] ICAgICAgICAgICAgICAgICAgICAgICAgICAgICAgIC AgICAgICAgICAgICAgICAgICAgICAgICAgICAgICAgICAgICANCiAgICAgICAgICAgICAgICAgICAgIC AgICAgICAgICAgICAgICAgICAgICAgICAgICAgICAgICAgICAgICAgICAgICAgICAgICAgICAgICAgIC AgICAgICAgICAgICAgICAgICANCiAgICAgICAgICAg ICAgICAgICAgICAgICAgICAgICAgICAgICAgICAgICAgICAgICAgICAgICAgICAgICAgICAgICAgICAg ICAgICAgICAgICAgICAgICAgICAgICAgICAgICANCiAgICAgICAgICAgICAgICAgICAgICAgICAgICAg ICAgICAgICAgICAgICAgICAgICAgICAgICAgICAgIC AgICAgICAgICAgICAgICAgICAgICAgICAgICAgICAgICAgICAgICANCiAgICAgICAgICAgICAgICAgIC AgICAgICAgICAgICAgICAgICAgICAgICAgICAgICAgICAgICAgICAgICAgICAgICAgICAgICAgICAgIC AgICAgICAgICAgICAgICAgICAgICANCiAgICAgICAg ICAgICAgICAgICAgICAgICAgICAgICAgICAgICAgICAgICAgICAgICAgICAgICAgICAgICAgICAgICAg ICAgICAgICAgICAgICAgICAgICAgICAgICAgICAgICANCiAgICAgICAgICAgICAgICAgICAgICAgICAg ICAgICAgICAgICAgICAgICAgICAgICAgICAgICAgIC AgICAgICAgICAgICAgICAgICAgICAgICAgICAgICAgICAgICAgICAgICANCiAgICAgICAgICAgICAgIC AgICAgICAgICAgICAgICAgICAgICAgICAgICAgICAgICAgICAgICAgICAgICAgICAgICAgICAgICAgIC AgICAgICAgICAgICAgICAgICAgICAgICANCiAgICAg ICAgICAgICAgICAgICAgICAgICAgICAgICAgICAgICAgICAgICAgICAgICAgICAgICAgICAgICAgICAg ICAgICAgICAgICAgICAgICAgICAgICAgICAgICAgICAgICANCiAgICAgICAgICAgICAgICAgICAgICAg ICAgICAgICAgICAgICAgICAgICAgICAgICAgICAgIC AgICAgICAgICAgICAgICAgICAgICAgICAgICAgICAgICAgICAgICAgICAgICANCjw/dMWgN1wkgCVgqn R2V0qvJw5TFb2OLK1om6TiCUPwKRfaydJiCnePTrYvHGKsQtgDMgv8BCniIB0PuBQaG3HdD0RqTVaqRQ 4UHJWmCQEvtMHuXTUeZSXhEaX0SZAcFFvxGG4AfFTs KJpnULHvHMMxTyScFAGtWH3SAFXeH996tjAtDm1WCq9EMxYkWH0txz4VUyxeWGOcDgmHFwv3PQsiKR1O wNMgwFUcMNXbGGCTJkQlG1pya5YvIwgyIRIBLSizTF8Pr3HkfLKpSEa+Kd7DYQ3ms6SvZPfkEOEsBC2d if4YVIaCVeItI6SdcDslSPUvmnReNPsnyxCueSNHCJ NgODQjx39eztwpTb8kEXXsADAaTZ7qFMFlQGAkPlHaYKQOZT3JWNYdAOHctIFzWSYgOBNZUK5TRKmqPO L4MemoyoSnrTIhFDplCC4ITJPakhVeGzviLVALEWf+Jl6ZRF2yj7IqVYjkXYXhKN4msm4VBHpARuVnH9 P8rEFjT0F1YXdiJt5SOUHnFFVmIvAiQGLPMHprQZ9R FA1lwsV5KX3IoMYdVQAhXTZbgFHpUTx2U59dwYHiHHsdVV6TWNZ+Mau+Bd9WTISxFYSrKTYuTwJkWMQY GhWeL7YbH4NDq1FdI6FrIM60zYzgemTvDWxkYU6UCZ5kDSBqZTIYED8TpPYpdW5msfAiYySbTSQIYmHj F72haWAlSWOwMUC2JHKeOk9ITZGhJ1FxckCyhPlqgy AmBVGtHUCXYY8ONBjpgrHuuLKfyIcgUK08mTraEJ5VIg6BDgCqGM4cau4WfGXfNh6ORUOkDH8AFWFqGH PcQOSiALE7DFAxSwHnOGqeFQVtZALvBIV3DVEnUUJwMN8NRfStQGUjMzA1ClRxNPJvGYJpyz8EATXaFR MtTlQ6DrUjBZQhUOUbXRmsDLIpEKBxIKD6PHEdYNQj FN0RVdLsFLEnFARjADAjWFIaPAJpmd0YBCFeTWJjBgD7AqNqFYNoRVRuFXbjMYOgTVWmBJI7KAOcBIRm UQ6PNjUkTAKpIYOwRrhqKJStFRQahe5DRIHyIESxMTQ4IqUgYQTvTUGcRQlsMNPjFGB1Kds1KEQxFDGd SS8CZeYrISIzREO4BuJoLVTrUDDoba5IBUZuEVNhYJ UlRuMrOUEbUHRsTLeiICFoYWO9YqVsIYSyWPHtTK1IOaCtCGGaTFR8XKAsQLRaFDNisw3TBJXsVZHgNG O5PtIyOXYbGKDoTVgjVJYnHGK2LZk1TSMsYXPpMG1CUuTnEOEqCKa7LYzaTQHuPUYtbv8KFBIpDMRrFC RtMrCgIYWeYQKuERhbHAIvBHQ7AFmiDDVuINVeDW0S YwGiJZVoDeIeVMUaALElNFIqhd7IUDSqISZuCHYcTiNvYMLmNWAoYDgoZSFlNMDaEZq2SJNjFQUoJD7N MgCmLUTbMwH5BJAdAHIxMSBcmg8TBCZqRNVmLFHmWwXuJKVcSRHcSEnhIUOcTJEtSkf2ABVeJZXhAW4X YlJuKEIrPaUvOyXvVRUaDEBajn3TNSSwKOXyPvN8Qu CmZNGlMVWkMRlyNOVbWWTpOqG7COPcCGSyKQ6QLuAbNOYpYlB3HDzwMOEdXIXvee5JqEXjiTdhbm8FKN zUPd5GaZuyIUNnCDpbWb6geAApMSNsTAYDHj0EphDwZBPaDCOLKXlfMHBiNWk6FFwdJEFrJhMcRYFpTY zkW2Z5Gav0EMQ9OYJpBHCyGvI9ESvoHcGkAwUmTrMc G1H8ITG3RTv3VJnbPBUsRDRzU4S+SV9lKQi+Kw0Gw2KjpjL4hmIrFHmwDTYsNm0AGNDQC6MNQs== ID Date Data Source [id number] 06/17/2021 06:04:57 AM EST [facility] Name Value Range Interpretation Code Description Data Arabella rce(s) Supporting Document(s) Nursing Note [facility] MITKVq1yNaJGDhPv96/KQNaeDVWjm7QgRFezAUs9NTopBUJbM6NoOVE1kT3zZAZ1IVoDJlNiEpAfTND1 lbm [file] ICAgICAgICAgICAgICAgICAgICAgICAgICAgICAgIC BgHZXzUWAlVJSqIJStPKGoXZArKJIfLPZvWODfXVXjNZAfGAOoLLXyPGCxACKeZG6JGGBwPFMdZJWiMG AgICAgICAgICAgICAgICAgICAgICAgICAgICAgICAgICAgICAgICAgICAgICAgICAgICAgICAgICAgIC BlCLWvDOAlRUYrYPRoCOKuSCLoZIAeVBYyPHYgKI0W ICAgICAgICAgICAgICAgICAgICAgICAgICAgICAgICAgICAgICAgICAgICAgICAgICAgICAgICAgICAg OKObUTUdUFPtAVDeYSZpWXLlBGJgPHAxQOLkLLLeUULqOIEqESTaCN6VLZIjZVPbWRLyTLExVKPtZXLa ICAgICAgICAgICAgICAgICAgICAgICAgICAgICAgIC KtJDLxMAZnBLNvQMKiSPDmQZNiUJQcTHBiTMObHUHoXHTePOGtRVLeLUVgWEAfFCXvZL8ILHMdFFUsQR AgICAgICAgICAgICAgICAgICAgICAgICAgICAgICAgICAgICAgICAgICAgICAgICAgICAgICAgICAgIC AgICAgICAgICAgICAgICAgICAgICAgICAgICAgICAg LF8CUMIdVMEgCPKeSXTkLUUtLDQxVIBpRQNlWVXeRDCiWCWfBJTpURDeJIHoYVLfDRAqCPLiEBWkOBMz QNImFCAiTKSyEZBsFCZhYYKxBIEsYOYpPMEjHVIyWURtMZSeGMTkJALtJT1FJEAjZYLvKYWtPVJjNKQd ICAgICAgICAgICAgICAgICAgICAgICAgICAgICAgIC HmCLKxOBZoGGTdHOXhQWTzOTXkXNIpMKQbSHNtJJPvSFMlUPGfHVAeNIQfLYOaVPMhTQZgDP1JJZEbAD AgICAgICAgICAgICAgICAgICAgICAgICAgICAgICAgICAgICAgICAgICAgICAgICAgICAgICAgICAgIC AgICAgICAgICAgICAgICAgICAgICAgICAgICAgICAg ICQfXO2PYUKoUNHcFQKoQQNnIYHiEXMpHHMiHPVxIPYxUWLiXQQgIKRzXLIpEOEqMXWtEFAxHSXfSBIy HZJhWPNzCLVaDIDyBNQsWAHlHLAzGTHeHISbMQGuWDEpFOFyVGMiPRYoLVAqHJ7RJABnKMOpKTSnHXTv ICAgICAgICAgICAgICAgICAgICAgICAgICAgICAgIC LsPPGzDBMtQFFmYUHiTFIpFSKdPONjFVWzQZCjIEZmCIEmGIWqEFYwMGEwJEAlAZBlALZrFXTxIY0RUQ 15yYOuk1K3IHJcUR8qeox/Zj0BAKoykoOxbLJvRU0HJoScGT0wdl2MKiSgBO4cer3JMTcLLlTqD9K9gG ZoDITqCBLONrEhL87sHRucTl50WCvbENKzLoAyZDw2 Xv8ONlGwT2tjHSTjJoT2SXJwHgHwIUrqBA6Nv4CbeYJvZWa+Im0KZR5wr8NuLPvpLxYbUT1did8ACHvH GnWsB7AnqvU3CQZnASYbNi5NWFDvMWZeuHZgWjLcZBUYOyXuI5RwtA45LCECOb1+DQplbmRvYmoNCjIz GOOcu0VeLVr9VL9YXRJjNMy4rJTuXxTws8wzKeLFm0 DxAME0PPtcfVp0KQYOPUJeb4NqL9vkZASGKNO0DDXmGhiuWtLkLQHrNjulMZSXELzKUiQzF8Rue1EpRc S5HEWpUqHsHAgeOQZaTlO3KJ20cWpnTV7ZWHGpKUMyRW58VRAtPHJaUq3UOs2CJoApWS1vnp7TZbUiIQ MpNngENaf0YMmoGQ9KoIPrB9RjgUUeq8pIQwOoP5FZ JRObPKKaEw7UHANqGuGnDTFsMAepYI5jYRCcGHYGcPjjrlF3TK4RJP0fqtRpLJ2KWuElGj7iCa1SRiGv Q1QfH4LkIKRyQXPKEBiqCI0PGRkuXO7xVU2Ur7DUnODivR8ebl7CYPEvYSNwMltriq8LFbjjI0L9uKdv XUJjUtGuAUMVEDdgJY8IUBRvXJL7GXJxGRTlIVQBNa OtI26uFB4XR6Rst11pTwJ7GWBzCvGnGXlgTS72nAglfqRitVZodAkiJG7CSf9+DQplbmRvYmoNCnhyZW NRTcNjWiTCCeSfDWVxYGSkLZUvRhM2XyBiWd1VQXGkROUiKNCvTyFiEGEtAZUrEJlnPJJnTYW8XVShHN DjRXUiRE0OXcHoOSSxIrS9RNZlAIPcJUHjjx8WXQKo ASGrZQB3DaVfNAMrEMYhMLgqSBXbCSFkNoX1UWOuJJRmST2FZqFiZTNiWWN4QBuyLHZjNRLbok8ARKEv DBYmRyjnQgAlQHKhBLBaTKqoIIThQSMvPNV4HHKlXMMtKY2TStJxMWTtDTGuTBKhMVRzRYTxfv2ENWOs PZTtBZY1ULGbQZVdKXZeGMloCNAbVVM0OoR1CGCpFH TfFX2JAwPtIPXjXTG9HGNnSQBwFBUste5FPODyKHPcDis6OHYuOHLySOEzFYbnKJWoDWN8TzJ3GIQvVZ OyEZ5YJaJaTDTjLGe1SWImIEPhUZRskx5TEGBsRKUjJoP7IAUjEQAeSWPkYZzhUECvDZS3TLHbRTHeUZ YrPX3RTuKsXCYcMZa4FQFaVSGjCZRnrx1IQALaIFZv ZJecTtFbFRAxVSOhXAcrKUPbAWN0DZDtTQTpGWCnWM7LEqEhOTEaKVs0JIFkSBTzIQFngf8JMTIjYRFc QVv6ZIOmTFCkIGXaUJspUINqWBTpXEG9NMHjRAVqPQ2TFbWoLPQvUmQqRfBlVFCiJIVsol1OtZWjtBom aj7VRWpZPu9QlEbeKCR8NHttMt9enNDbNBWuTUUSJj 5WvtYkYFMaHELBJZoqNZCuJCD4KlcyQTSdZFHxTLUdQBQgDOQ0X4AfLFMeJUH2GgoaUuD1MFcgWIXlLV Q9QXJrDHAsCEKvCtCuSJVlARVeCCcyIYP+NV7lYCt+Dd3Nh0MdxeS9qbSuRYwvNRAiGT7SRDQIM9AIOl == ID Date Data Source [id number] 06/17/2021 01:33:53 AM EST [facility] Name Value Range Interpretation Code Description Data Arabella rce(s) Supporting Document(s) Care Plan [facility] UNPQIn1uPsYGZeZf98/IYJumHRHot9HiJSzaFCy8VSdbMZLtC1VgAKN2tH4jAJD1INdHCsDvGnHwGNM6 lbm [file] AgICAgICAgICAgICAgICAgICAgICAgICAgICAgICAgICAgICAgICAgICAgICAgICAgICAgICAgICAgIC ANCiAgICAgICAgICAgICAgICAgICAgICAgICAgICAg ICAgICAgICAgICAgICAgICAgICAgICAgICAgICAgICAgICAgICAgICAgICAgICAgICAgICAgICAgICAg ICAgICAgICAgICANCiAgICAgICAgICAgICAgICAgICAgICAgICAgICAgICAgICAgICAgICAgICAgICAg ICAgICAgICAgICAgICAgICAgICAgICAgICAgICAgIC AgICAgICAgICAgICAgICAgICAgICANCiAgICAgICAgICAgICAgICAgICAgICAgICAgICAgICAgICAgIC AgICAgICAgICAgICAgICAgICAgICAgICAgICAgICAgICAgICAgICAgICAgICAgICAgICAgICAgICAgIC AgICANCiAgICAgICAgICAgICAgICAgICAgICAgICAg ICAgICAgICAgICAgICAgICAgICAgICAgICAgICAgICAgICAgICAgICAgICAgICAgICAgICAgICAgICAg ICAgICAgICAgICAgICANCiAgICAgICAgICAgICAgICAgICAgICAgICAgICAgICAgICAgICAgICAgICAg ICAgICAgICAgICAgICAgICAgICAgICAgICAgICAgIC AgICAgICAgICAgICAgICAgICAgICAgICANCiAgICAgICAgICAgICAgICAgICAgICAgICAgICAgICAgIC AgICAgICAgICAgICAgICAgICAgICAgICAgICAgICAgICAgICAgICAgICAgICAgICAgICAgICAgICAgIC AgICAgICANCiAgICAgICAgICAgICAgICAgICAgICAg ICAgICAgICAgICAgICAgICAgICAgICAgICAgICAgICAgICAgICAgICAgICAgICAgICAgICAgICAgICAg ICAgICAgICAgICAgICAgICANCiAgICAgICAgICAgICAgICAgICAgICAgICAgICAgICAgICAgICAgICAg ICAgICAgICAgICAgICAgICAgICAgICAgICAgICAgIC AgICAgICAgICAgICAgICAgICAgICAgICAgICANCiAgICAgICAgICAgICAgICAgICAgICAgICAgICAgIC AgICAgICAgICAgICAgICAgICAgICAgICAgICAgICAgICAgICAgICAgICAgICAgICAgICAgICAgICAgIC AgICAgICAgICANCjw/xOEgC6vfwITtdvF1G8xhOe6V By9KUM8kt2FcBBYsXYleqzJaKjxZVjToLFQjCrfOQpz8FFmkGA1DvKCtM2MbJ2MtAEigIU9WZNFjMTSr gABlBAHmIIMlUqT9SQQjFLpvZR6ZjVFuZObiGPKdSYQqAhFvUBLnRG2JTAHmY115mfOvZw7EDg6PGxGk BH0weh3FOqBzCHCpCbpZLyy6GRoyPF8RwEMjnXYtZy OlRTRUHzNfP6pqs6YbIfDsPJQSLSywBP6Zc3TdnHUyVRw+Wm1VAM7bn3FtTQocVdIbAM3mwk2ACMoWDn CkK0CjkVftAIMqcyPnSXxtwjYclRKSiBjtmKEyX8LknN55wCAfFJBQHfWsaYYdVL92KeQeXfWsPKY4Ms QvNR0yWIisEP8TSLN2GIwmLVQtQLDxQ4gXGfGsCXrl LDYzvKzjBR4CKrAfT8LxkzZqjWUcTxCfFTRWFx1+TLehbgSkXyfMQdI6DCKlw4TdOVo1AI5SJOKfHHwn CZ5ZUBBnpA7mSLtvIZ6PPeVlTCKsPHNMEyZhO38fkYYeCBt7G0UyKoRoHZMwBdevKXPlWWxgFlWfMFQs WyBdDQogID4+ID4+YFkiPH9FIGzuvdCdXYIrFz9BPC TmTOGvNW8cBOBgXQHzX8L3hFzjDNNHSrHkE0wesnmqQI0qGYXwG625sYbujjRpXAHvVOZaXf5CQTMqFG A1CCIynUMqDcPxTURGXAsiVV6AeLPhQZV2iM4cQQuhRSUbHUJlW1wNVaWkgZfiML81dLiuelUoqUTpHM o+Ny2PGJ8lz0FqCFn8ihFvYUooNLO2UYrhRBNgIVGp TTUyKPW8JPA7ANECWuUuJEPhHUIbRBiuKVXmHCXlgd3IMQRjNRShLvG6VPIyJTTpZEDxJAhaQZEgPRL7 AVJkVXUsGKUvYB8FWcQiDQArULRkIYwjPBDlGZLwjc4AYCLmXSSqTaJgXqQpNKOnEBJzJAnxZRBjDPEh BkA5UCDnOQZyYI7ZGwZbDOEcNZK8UPCkRXBbDPRqyb 0VBDPhRXZiDLmxDAIhRBNhZGSpOAtzWWUyPBT9TfL9HXDpOQYcLP1VZtHtXDKtJBB2CjuvCJQpTCItyq 2AWYMrIAJmPpB0VJJwKVWxHEMyLYnzUNGzKFJ1FDN4DWTyAOUyDN3EDqMxGXJqJAirRVIjNAFaJHQuck 3YSDTaIWZtQsC2EOAjCAEwEMVqLMgsNMIsBAK0GTWy YEGyRNSvAV7IOaMeLAYnIaIbXRgnWYVzBUAdoo1IQWWwVHEoXBJ4HULkKSBlCCSlSCdtSGKbVAGfFpJ5 APOdVEWaIS7TKtTgKEZhXjX1IBZaXTUpFMDqoh9LYGHxAZUnQYK3WiPiWTQvPMJrZYboKPRmFUCwBQc9 MFTmOBXzVU5JGiVpQVSdRnYlPNSdJRVwOGLulh5PBN ChIWWtRkWeLkXyNIIoIHQdTShhQJBdQLNcPoG1UFQcNWQdAH5GHiYyXUUzXhAsPAXiXVYsFYOcwr3LST WgVPCxQowlINUuHYWlDZEmJJkiGRPvKUO1LAMuECUnPTOkYW1RLmYbDOCkOhqyVlGlPQKlRUYmtx1NET JwFNLyNpA2ZVWxFERqFIVdKWfcTBUrZXF9AnCfGUNo VABvSW2LEaCwEFDbMzqgBuVoTNVoNDAhen5LLZTnQNZvJSLlZbJeMEXwYZAjEYbeWCXeLMJ0ULm0VBGa UIYpOO6RRnXwDQQzLky4HrUfVUEcPKZfow4OzKHnxVacom0VJAzYXs8CfHzpDXK6TAglOo5rtXDyXDJk HBPHSf6CnaPlAZXcGUGQKGxiTBKcEYUyAZUmFAHnOJ x8ErChLMTeHLP8UTY5GYQ6IWdzAEEkQfH9AjZgAbVwVMN6ATBnKOYpB2O9ThQeYfs8ThcdV3XmJaZ+IF 0gDQo+Eo0Cq7SotsY5eiApUBcwPFw6Fd6MVZNGH4DMTq== ID Date Data Source [id number] 06/16/2021 06:29:05 PM EST [facility] Name Value Range Interpretation Code Description Data Arabella rce(s) Supporting Document(s) Nursing Note [facility] TAFWAt8kFuOYCjKu83/NTSomHAAyt9VeDWkzDDr6AFroQUVbG4HoNSP3lD9eIRW6ZQvNQcUhVeScNJB3 lbm [file] YaflD5beRpEZqzVQQ2RE0KMZGMW1MJRd== ID Date Data Source [id number] 06/16/2021 05:46:27 PM EST [facility] Name Value Range Interpretation Code Description Data Arabella rce(s) Supporting Document(s) Care Plan [facility] TNFFHt6eZlEYVdPx02/OONluDEXdc6OeGZsgPDo7QNtpFUDrJ9WyKBP5tJ2xYMS6DLxOYuAzAbIpKDN6 lbm [file] A+JZ7jUZw+Hv4Ip5UntpU7enZtQOthEzE6Rl3KCAXPZ4AMMd== ID Date Data Source [id number] 06/16/2021 05:48:00 PM EST [facility] Name Value Range Interpretation Code Description Data Arabella rce(s) Supporting Document(s) Phosphorus 3.9 mg/dl 2.5-4.9 Normal (applies to non-numeric resul ts) [facility] The above 1 analytes were performed by [facility] [address] [facility], ,[place] [id number] ID Date Data Source [id number] 06/16/2021 05:16:00 PM EST [facility] Name Value Range Interpretation Code Description Data Arabella rce(s) Supporting Document(s) Magnesium 1.8 mg/dl 1.6-2.6 Normal (applies to non-numeric resul ts) [facility] The above 1 analytes were performed by [facility] [address] [facility], ,[place] [address] ID Date Data Source [id number] 06/16/2021 12:40:15 PM EST [facility] Name Value Range Interpretation Code Description Data Arabella rce(s) Supporting Document(s) Progress Notes [facility] TPPBJs0cTsYYDbMj59/NUAibDUIca3QnOGlpKGa3MDgtMVIqN6XoDVJ6oP3tGQJ7LPwWLySbQrRlPTM4 lb [file] RupP4NF3GUMKqMQAWNNf0LWPVhU05IOCTC+1YpMI62 FUN2DW3U+rGayEdUClSrTJhnHPI9oP+7tX1LoySOfYqFNruiwBypY+yHWwJFHbRSV+UqW+aeBT4A/oP6 meEMI83EyuW2/o/zKU9QWVR7j8p/xUI8SMxhCKgQ6GvfB0o/FZ7cjQv42dEuDfwIhFQM7bA77jS4NQrC fiDBF2Gj1aHHRLkaR/uceBrtOgT/s2U4PU86MVIu5p pWwzawv+sI+W7b8o+PNp7kmy+DyarInI4j78yGU1F44Ep+uJazr84O78vreT7V4HUJYbJkzmwQ/xLUec /9Mt4Iu7SkMOVvErDf9uVWojVN0v2qjGp9PdmPpBT0X5/Xzy2vMl96J7r+iwB9cB8QGDlsoHq0UKnXnY MT3qVapuJA1nGaoXbB1bHKm21Tx97lgh+kPgUcwXpp hIdOC8mlWuAwj881lv9uUZF1Ou9UPSZiCeJC68MW0o71nj+h+8Qr30FtAl7v7rshngOwB5JiRMH0tbY8 j+z+6qidAr/F5Nx8CLSnq3Ar1BmbbZ8I7jAqwTW+NTyO8Ec+M+LaNhsA1qMotcpmqVR7oU3PashYW5dB qxncw+keYKHLRSmuluJvqMxVkyhfnDHafxtLnDuuQ9 9cuq14X4/Ph+/nDuOtqSm8s7A8wCCepPOzGNu6RGmpWG4jR/99kIZnZ+Z4IkCEWNACW09s73HBKvC8QO gyHxaqPmnHb3PnoLgkUrNDNlBqCANy4AQ3fWi4r+c1Ir7skvP9Gv0uEfCy7AZMzpyEhMxe3Xr59bvAVV xhZll31FNQCX5g8CrkU2rkc/w0oBxwMA205PXZTU57 YdTKcSlAz2rMfueiJHC7oWhrQ+l9I4US1ijB+xJgRRow2pt3xKRR9WQQQ/C9/hIaLFWSLv+f9ejp7JON sj0L764y0cfnZovp+WjmJCQRMPh6o0C0ez9cil+lDrD/xkjNzI/6C6CANcTtumlRM4c72kcOcPuStOsK caYePes7NbN74Chq0EuEO11bvxIai1y21+JdnrYH+7 zXEM8pHteHwn3xXKYZJbg4Y2d5vU/4ByAt/y2bH+FdVS41tQ157yC41KUDgX/xT20KtzJvdzyF06qD81 1JCfDct8FgzRvAh88Cd2k+Y6wlhgkgbkx3yV4djOL2yAhRiHbvCxhlXrRIgPYz7e//yrtWU1Hc97Pke/ +zd91Cdge7KZXdj+5pjyJXlcI6RWZfbVzHWuulx8/v BIm//1XDGRu9VfUv0ESI6C7bH10QAhF4gyN4UB9YRgnJZtEoXw7Yq8dVTh7weSdaNS5TJrMs3pT/A/vp platforms Rtcs52Z/XB60zRxDeKssbFfBCva0qCBZMxS2L21/UNqgrP9JqiVHOX8UK7eoI8BthQT4g988v5dRs0sL XxnWuhx+q2L0vopMqdUxt508j9VCL5gOuB1Kx3RKC5 blFbAZQXZvAT08lPWE7bavoR8sLchYsfhU07gqAoRbqLXTX2G/uy0K+1nAVXsuoV51CjC/SOzKZvb0Hz ObQiQul21cl7e30Nt2cx7RL5ocLVHRyr4vkAyheb77I5sxYj/eJ8zeD1hLvfLrkHnjCAR7zLOJkRzBVO 1gMjiFrgCRcSrt19/qNZiN1o2Vx7JM84bCnqQ0XPqJ fYf4s4mFmJv7qU/lXsqKVtWmGz0OxMBrwshQlq9dADEsf8zVuwKpD9l0ceT6ZGbtjRtEQUksqAb9iL8E U6myu7xC8Gyv03SZNWbOSy2yILfm6i3hEbErDe7fytb6oglahQeEkly6IG6lkFn6nUEF02z9YIgdLc1d WyuaLAeOWTBjg4orIyTRKA/KhlPrDgEqoPbjb4YDhi 9DxnsCRkw+wpPcVshgg/ILGTXmF+cAoGUmXhdXFi6Pn4qYhU7uy6D09mZleMcVrwEDdfeXvUBsKCP/YV TGMrG8vZhYDJn9xUsWNSX6YfTndKVS7BjXGjuPos+nlyO7rd1XVtdFASjXSXrQcyp1Y/c4vQLvPB9NR6 wHKeB7WGXZkce+YYVVjaIGJA+OQDNEEvAEWxGOZE71 [file] ICAgICAgICAgICAgICAgICAgICAgICAgICAgICAgICAgICAgICAgICAgICAgICAgICAgICAgICAgICAg ICAgICAgICAgICAgICAgICANCiAgICAgICAgICAgICAgICAgICAgICAgICAgICAgICAgICAgICAgICAg ICAgICAgICAgICAgICAgICAgICAgICAgICAgICAgIC AgICAgICAgICAgICAgICAgICAgICAgICAgICANCiAgICAgICAgICAgICAgICAgICAgICAgICAgICAgIC AgICAgICAgICAgICAgICAgICAgICAgICAgICAgICAgICAgICAgICAgICAgICAgICAgICAgICAgICAgIC AgICAgICAgICANCiAgICAgICAgICAgICAgICAgICAg ICAgICAgICAgICAgICAgICAgICAgICAgICAgICAgICAgICAgICAgICAgICAgICAgICAgICAgICAgICAg ICAgICAgICAgICAgICAgICAgICANCiAgICAgICAgICAgICAgICAgICAgICAgICAgICAgICAgICAgICAg ICAgICAgICAgICAgICAgICAgICAgICAgICAgICAgIC AgICAgICAgICAgICAgICAgICAgICAgICAgICAgICANCiAgICAgICAgICAgICAgICAgICAgICAgICAgIC AgICAgICAgICAgICAgICAgICAgICAgICAgICAgICAgICAgICAgICAgICAgICAgICAgICAgICAgICAgIC AgICAgICAgICAgICANCiAgICAgICAgICAgICAgICAg ICAgICAgICAgICAgICAgICAgICAgICAgICAgICAgICAgICAgICAgICAgICAgICAgICAgICAgICAgICAg ICAgICAgICAgICAgICAgICAgICAgICANCiAgICAgICAgICAgICAgICAgICAgICAgICAgICAgICAgICAg ICAgICAgICAgICAgICAgICAgICAgICAgICAgICAgIC AgICAgICAgICAgICAgICAgICAgICAgICAgICAgICAgICANCiAgICAgICAgICAgICAgICAgICAgICAgIC AgICAgICAgICAgICAgICAgICAgICAgICAgICAgICAgICAgICAgICAgICAgICAgICAgICAgICAgICAgIC AgICAgICAgICAgICAgICANCiAgICAgICAgICAgICAg ICAgICAgICAgICAgICAgICAgICAgICAgICAgICAgICAgICAgICAgICAgICAgICAgICAgICAgICAgICAg ICAgICAgICAgICAgICAgICAgICAgICAgICANCjw/oSRxD6kfgQHpnhD6H5mpFq9BVu3BDK2nv4ExWJYk RKjmwtPbFdxFDoLwFQLsTucLPea0NTjdAR5LbCWjJ9 MjQ8LkFTboXR0BGUToBCVtwJCkRCVkQTMpLxW5TIAvUMyqKF0FeFIuFTksHKNxDRDlAtHhIDPeBWUyXP EeTWEeMFJVAM5YVqFyB5MsxY32PWHSPp0+VEalxiDhDuaKYkF1AZXam3OvCRc9LM3EXLBlXszkq9StLF PfKQDTDXaqFC9AOZX5TNJ2QAWfWk8YQZHlU200sbPq NS3JAv4NTpLbGK2fpf7KDPOpSNEaIhjKGtd1QSaqKQ9NpYLxWNkRmt3tzuJnivDHy2DmysFfwQZXurxk AA4rM9YelZm6TSTEAOQGBD6gQPUdTTYpXE3xGZSmRACmDiJaFAGCCA1DXIMjQPUyhZYzKZNwTITVQK4Y BDltBTG3FhiadpObbYIjCEkdEA4LEOSoptMhZXXsRV BSDQo+El4MIQ6dg9GlTIc8OmXzYM8jfg3FDJkLXeSjK3P7mSEwZ7P3PUwlQo9IXFCvUFOqAHYvKJFFOZ jrSU6LJS8bxoP3AP2RvCNqWEUwWASziUBrWOv1T02sfBYfNGzvKE6CJHP+Mau+Kp2WZDHhXLMgSQWcMz XeWODGEbMlF6VaQ9BPk7PdV5ZnZP97oFehdzIeZKkj LV5MZY6lPCOrSFRCAF4HiWCkvK4tcqH2CZKsAOHZAvExX52nhKIkZEOiXFGkRWIkJh2XPITiW5HodxOe wCydcgKsPYLbCMKCXG5YLIukoxOluGUgiTgxNT98dTlcWA3ZNy9JJrOpYE4hxj0RsUOoRq6CQWO2Kb6I CLXiLTBqTBZmGHS7OKElQjDaTSjpFPLzAKRkODR4LA BtUJHgVC5RGxEaDJUwXVR6EXmuENDvXEQzqf2JRLOiBZN4WoZ2CGLkYMXrQRDxTHjfQCCkZZPxSYE9JD DzQSAiHU9RItDfSEZsBUGzQwVnHYNzXOMlfj9WCCVlCQZzIpMpCESlXTUhQSWrBJsoCXXePNJ7KdJmCR RzGMIjXZ6TWoDiDHJmVEC0MZYrCRCzJGOabg7CICRt IUHcEOj5EHQoLCEqZVVxODvkRIIaGMG2XCKlDGJgUTOkFI1VLtJbTTSxCGN3CBTjIWYwLXTntx9BFNYm ZLGlXEm3BjNmKJEfKNLvOBjhBMXuQKKbBqL5NJBmLOXmNJ4IZzTjTFDxUJR9BYmqDJKfCCFayo2KBJBd PZCuKzD0UGIhYXEqXEBhMDftKZNzESI0TWB9DLBoHH CdQU0NNeKvABAeQZLmYCUgDSQpDDDyoe9VYKXpVFVrLQHvGCFwMWQqTTWhLCevWDAcXVA0Oha2YZKgNV RpWA0BMsBiJXRtVzicKWYcAVStUXSjmv7IEVJdCIYrVcUkHBJuBKNeJBQrQMnfTMBfMIA2NVO3ZROgIM IgLD4BNuPnRFLxCmf0QEKpTUQpGSYlvj8WBFIhEVLk ZCAuRECoVQDrZFFbKNfaWMWmYPX4NXF1TPChORDeDH8VUjHiNEGaUmjwWGpnSAXkVHMjci8GXJOrMXHv SAi2KHNkINJtMVToZUawOYGeNIZiTYH0ICOcCHUuMJ5SEtSeGKLpQqXxQIelSLGjZEQkay6VJGOzOLN5 EqJmLfEqIAVwVUKmBIiqQUPvKRCeRTN6IEDuSNZmUY 8BFqVePFBuZAYdFwXvNRTyTDIkbf5PIJXqFDZ1QJUiXiRiKJNrWTOvKHsbUWQfYXY2MPEoXJMlSZKzSM 3LEnRaOWGoTAW6CNQjEBLsQGSrbu4FMUYxVXX4UEW3HBHwXJAvMFXyJGmfUSThSGB1EBL2RIZbRVFqIG 2WQdJnSDGoJNK4MkAcCYEvGMJgzw9WPESlQYO5LPRd QJChUODfUHHzUTdgHUVhXWGgMpIsRJOdDSIxYI0TBhFgURSxGJF5FCQeZHErVEMxcq5ZEQMuENU0XIBz QtDhDREdRQBdYSgkVIGaFVTbRHV9ULWeMTFbTY4ALvGbDCVvCZZ0UbElONWuCMFejx1WWPPhNEW2MbV6 XoIdSVVvDTKhOBoxCCPlAWScUgy6XPSbCLHpJH2NQn LiRWtdTNJAKrd9JQosE2w0DBG7Qe1VM2Fdv9SfLREiJOMGPFshAF0podLwAGRyRm0NE0uNMkymPHKdT0 W6IDy4DQm5TPg8GclpAJQpLMOaATP4X0OjEY7mAXH2KgZvWWzyUgC5LYp3FSYuIsR2DBF0QZMjOIRmEa PiFvNiVZ8ZVb2KFrA2GIK0qDFqWj6DWDYyQZQWJmFrEX5MLOk= ID Date Data Source [id number] 06/16/2021 05:17:00 PM EST [facility] Name Value Range Interpretation Code Description Data Arabella rce(s) Supporting Document(s) Pre-Albumin 13.9 mg/dl 20.0-40.0 Below low normal [facility] The above 1 analytes were performed by [facility] [id number],[place] [address] ID Date Data Source [id number] 06/16/2021 06:21:00 AM EST [facility] Name Value Range Interpretation Code Description Data Arabella rce(s) Supporting Document(s) AST 18 IU/L 15-37 Normal (applies to non-numeric resul ts) [facility] Sulfasalazine and sulfapyridine have the potential to falsely depressAspartate Aminotransferase results. Baseline values before medication administration are recommended. ALT 48 IU/L 13-56 Normal (applies to non-numeric resul ts) [facility] Sulfasalazine and sulfapyridine have the potential to falsely depressAlanine Aminotransferase results. Baseline values before medication administration are recommended. Alkaline Phosphatase 61 mIU/ml 50-136 Normal (applies to non-num madiha results) [facility] Total Bilirubin 0.70 mg/dl 0.20-1.00 Normal (applies to non-numeric results) [facility] Blood Urea Nitrogen 6 mg/dl 7-18 Below low normal [facility] Creatinine 0.65 mg/dl 0.51-0.95 Normal (applies to non-numeric resul ts) [facility] N-Acetylcysteine (NAC) and Metamizole em ve the potential to falselydepress Creatinine results. Baseline values before medication adminstration are recommended. Patients undergoing treatment with phenindione will have falselydepressed results. Patients on phenindione therapy should be tested with an alternativeCREA method.Toxic levels of acetaminophen may lead to falsely depressed results forpatient samples. Glomerular Filtration Rate >90.00 mL/min/1.73m2 [facility] GFR Reference Ranges:Normal Function or [...] of Health and the National KidneyFoundation. The Elsie method used in calculating this result is traceable to IDMS standards. Glucose 79 mg/dl 70-110 Normal (applies to non-numeric resul ts) [facility] Sulfasalazine has the potential to false ly depress Glucose results. Sulfapyridine has the potential to falsely elevate Glucose results. Baseline values before medication administration are recommended. Calcium 8.1 mg/dl 8.5-10.1 Below low normal [facility] Total Protein 5.4 g/dl 6.4-8.2 Below low normal [facility] Albumin 2.2 g/dl 3.4-5.0 Below low normal [facility] Sodium 138 mEq/L 136-145 Normal (applies to non-numeric resul ts) [facility] Potassium 3.5 mEq/L 3.5-5.1 Normal (applies to non-numeric resul ts) [facility] Chloride 106.0 mEq/L 98.0-107.0 Normal (applies to non-numeric resu lts) [facility] Anion Gap 7.0 [facility] Carbon Dioxide 28.5 mMol/L 21.0-32.0 Normal (applies to non-numeric results) [facility] The above 16 analytes were performed by [facility] [id number],[id number],[place] [address] ID Date Data Source [id number] 06/16/2021 05:48:00 AM EST [facility] Name Value Range Interpretation Code Description Data Arabella rce(s) Supporting Document(s) WBC 7.02 x1000/ul 4.80-10.00 Normal (applies to non-numeric re sults) [facility] RBC 3.24 x1Mil/ul 4.20-5.40 Below low normal [facility] Hemoglobin 8.9 g/dl 12.0-16.0 Below low normal [facility] Hematocrit 28.4 % 37.0-47.0 Below low normal [facility] MCV 87.7 fL 81.0-99.0 Normal (applies to non-numeric resul ts) [facility] MCH 27.5 pg 27.0-31.0 Normal (applies to non-numeric resul ts) [facility] MCHC 31.3 g/dl 32.2-37.0 Below low normal [facility] RDW 16.1 % 11.5-14.5 Above high normal [facility] Platelet Count 219 x1000/ul 130-400 Normal (applies to non-numeric results) [facility] MPV 10.5 fL 9.4-12.4 Normal (applies to non-numeric resul ts) [facility] Neutrophils 69.6 % 40.0-74.0 Normal (applies to non-numeric resu lts) [facility] Lymphocytes 16.0 % 19.0-48.0 Below low normal [facility] Monocytes 9.7 % 3.4-9.0 Above high normal [facility] Eosinophils 4.1 % 0.0-7.0 Normal (applies to non-numeric resu lts) [facility] Basophils 0.3 % 0.0-2.0 Normal (applies to non-numeric resul ts) [facility] Immature Granulocytes 0.3 % 0.0-0.5 Normal (applies to non-nu meric results) [facility] Nucleated RBCs 0.00 % 0.00-0.20 Normal (applies to non-numeric r esults) [facility] Abs. Neutrophils 4.89 x1000/ul 1.92-8.31 Normal (applies to non-numeric results) [facility] Abs. Lymphocyte 1.12 x1000/ul 1.20-3.70 Below low normal [facility] Abs. Monocytes 0.68 x1000/ul 0.14-0.97 Normal (applies to non-nu meric results) [facility] Abs. Eosinophils 0.29 x1000/ul 0.00-0.76 Normal (applie s to non-numeric results) [facility] Abs. Basophils 0.02 x1000/ul 0.00-0.22 Normal (applies to non-n umeric results) [facility] Abs. Immature Gran. 0.02 x1000/ul 0.00-0.02 Normal (appl ies to non-numeric results) [facility] Abs. Nucleated RBCs 0.00 x1000/ul 0.00-0.02 Normal (appl ies to non-numeric results) [facility] The above 24 analytes were performed by [facility] [id number], ,[place] [address] ID Date Data Source [id number] 06/16/2021 04:17:40 AM EST [facility] Name Value Range Interpretation Code Description Data Arabella rce(s) Supporting Document(s) Nursing Note [facility] OMPFLi9wAhYETuLn69/FLXsvXKMcm8PiFJruFIx7OQccXDDdF2KyCKL3aK0aEJG2OUxBWjCkYmWlMUJ7 lbm [file] D2Hqc7YPU7Q7T6AYZ7At0hOQYMCr3+JJcxiLRcxGytBUHZDwz4NuNEDxMlQX2QSAn= ID Date Data Source [id number] 06/16/2021 04:14:00 AM EST [facility] Name Value Range Interpretation Code Description Data Arabella rce(s) Supporting Document(s) Care Plan [facility] KKPYRb4zQfBHNxYc37/KOAxvPVGgd7ZoUGhiPHl4OSahWSTsR6GhFZZ0rD7cHZX6FFdNAyWnKlSrXTV5 lbm [file] Rg0K ID Date Data Source [id number] 06/15/2021 11:18:40 PM EST [facility] Name Value Range Interpretation Code Description Data Arabella rce(s) Supporting Document(s) Progress Notes [facility] NMPZDm3pXsOOErEr78/TYFdfSGVjz1BzUVyyHLp7YJynTYGvS5TdBGP5bA4bBYG4ECpMDwJkLyDrORG0 lbm [file] 1OzwMbJMZNFnS2geEbLdPtHYHSORB1bjt2SUnn+José Miguel [file] 6DSuA3DKY1wUGvFv6BHcSuKpxNYsXyZS4OVGk= ID Date Data Source [id number] 06/15/2021 08:06:52 PM EST [facility] Name Value Range Interpretation Code Description Data Arabella rce(s) Supporting Document(s) Care Plan [facility] UXLIMc7xYbOSEmHh08/PFXhwFGSny7JrPAmdDYs1KEtwESFlO4LqBAU2xY1jKGS3FDcAAhYaYrLwGMD3 lbm [file] U2HwU9JD4eUGUOUp9+KTaixUOvvLycFOPPMjFwMJX8DMvaCZLGZa0I ID Date Data Source [id number] 06/15/2021 02:50:21 PM EST [facility] Name Value Range Interpretation Code Description Data Arabella rce(s) Supporting Document(s) Nursing Note [facility] BVDDXj9hWxBDKjDu47/EDGivATAyq5ToZGsxUMf2MZrtNCMfV5KgMNP8eZ9vLNY1ULvVXwRoXzUzBLM6 lbm [file] NyDzIBy3WZwvIYREYy7T ID Date Data Source [id number] 06/15/2021 09:34:41 AM EST [facility] Name Value Range Interpretation Code Description Data Arabella rce(s) Supporting Document(s) Progress Notes [facility] RVLVHf2xOaKPRaAy35/POQlwGQAzs9EgGZhqGLg6ZZbfSIDgU3KlCGI5pE5eELA8QNqIUyTvJkOvOJA4 lbm VrDzkPSxGyYDHrPkmNUdZfLSlhDplcqYKaVF5UkBE8XFZqX43dUUXbTWKrD1TqCHC6LgM+Zx4IQCKypA MqRD4GQoxJ5S2wt8n2JK/aGQ5Luo0AOCADH0Z/6qwy5qMFKMvI2c6LFmRB9aGp2HfzN1YdsY1JE9Abn5 JTYXkwIr0zxjS9lbwqBELOggx361lVHnDWEi10btiF Riao3K3YO+NUicup+NNvhFuHd7pJ8p/RIPCAkomMzQPVT9+7+2MR2puyKY/mD6JKrVdbHvt3ydIEYmks 6bd3St335RuqjeKPOuqz5BSsbz1ElyMBRQtZosUkEdGij64FMdOYi2bsv8DoF+F4teEyuw0dLycVEkB9 fXYTPNgHrwyj1MjJOMWZVMwNvUQHIYyUbBBh43RMZ7 [file] VgX6HKHdJvWsJBTjJZX0OlRwJU6QGv1DToZ2DDI2qJXjNu2NXZPxIDrTUqCiXM5GACc= ID Date Data Source [id number] 06/15/2021 05:10:46 AM EST [facility] Name Value Range Interpretation Code Description Data Arabella rce(s) Supporting Document(s) Nursing Note [facility] HENYSy6eVoFGWzXi42/ORRwdTXZqs1HkFGdcLEe6JFywIMMbB8MiADC3qJ8lBAJ0UXaMNhPjKbHeFIH5 lbm XwVukTMsYyYYZrBreYDfNrULauYsqjjDFlZY8DtWS1RMDtY94vEAJbHCFtV3HdOTNoAsK+Ga3PGJGysS VbSX3XJaxI5YisX+NGEH+u2D3oVcgZT2cW2v2tLUI0vuk3rTEjKfN25QLNmM9VDM9A+grMkt8tdJb7tY HCKbCJw01g60lDclNuxm4NeIeBFMU/jg5MlfR4Zb7/ RN1glAPx2OUdNdrZnDF2JfNyEI/yVOtuacBqqQoY7GU5GyyIeFORaW6mh2isWi73vF+lauQrK/YDeDOE 3h6CYtxW5Wdfz2qxOP1OtIl8kgQ6s/IEDUvSBz3dZOC1dTQWriexVVVn4dGPgGIfwHIR6lq49nfEJKJm VnwXyql9gG9zksgEFF9plmIfSGguBTRrAJbFaNAD2W 3jrnhPJm42Y2peqWuFvduYGcflwp0EmQ46HgwlQijBFInSwT27pLFfaDThXUKjW1ZyV2eQupR6tpoDXw +tyffD/hlAIrCwVUC8WxG7RFEfqRG6hRHrleo0WRWDOpSI7ZnyWSa6wgitViQ0CrtiG/xEoXvz3jxO+S Tj7dkdgSp/TnLyxS3Mz+YbXiPM6VS89DugPjXz1Uhe X+PFPJRUOP/1rEMnWsTRgi9G79b6SekQa7/D8Oz5/ZzD4RL5DJu3z/mNuKPRjtJ1oNqUK4zapVsAi4eR /FJkQ8Ie6Z/FNB/4pz6HyX68OX/BuSIAOwRlNgJrN43wtgq84H5wejw90PAu3Pz7wmgojBi8B0e42Bvf Hj7ZX2UfUY6++ba1IVuBt4c+e9MpGFiCG5cy+fglyk 1VkDXi+2WW2ekxNWd98eXtTa990TM+vToIPwKlWo/A83smVDW0OMPSJDnTOrSW3fMu4gFpuFMsYErrHY mp94Rtgf5V5Y5Q4e3jABV/xauCQhne9g+yjoAUSLTdxG54OgmBdscuGRoLhYGvLSy0nPU5odAgaB0Zlw it0LBWMmaKfLT55NTBZADYCST+DKyKYTBb3Z2M01u8 [file] kvkFdltlI6psTrICrO8IZSAneMtIqySoFXFJh71BgeDlUANHFsX6ceTnCmYxXMSTZOC1wcc4BSji+José Miguel [file] hGKjWk4XXtQdOdfSLcWlAE0XRAb= ID Date Data Source [id number] 06/14/2021 11:04:53 PM EDT [facility] Name Value Range Interpretation Code Description Data Arabella rce(s) Supporting Document(s) Care Plan [facility] OUUXDn0iDgIJMsNc60/FIZsqAOJgo2OiMIcgBWg6QEzaDWFwF5NlNJP2wI4vMJK8DMyJRvYhXfWqOBC6 lbm [file] MTgwOCAwMDAwMCBuDQowMDAwMDIyMjQxIDAwMDAwIG 1ORuTuDAGaXhA4IPVzLKYlAIJamm8FXDLcZCChVhw1WnXhFTKxSOBuGQteSFZjMJAfFXPjKTNqPQIgFN 4AVyCkOQfvDSJUOpt3ODucH7l8SZZuUA7DC6Uwa4WjPlqrNBAJDTnfMH3utzYaLGBbQx5BF9bUZpriPR WhTxE6DPFeYIVdOqY6PCooQyMwWSM8CxRlRzQvZX3l FXRdFWYzOjInNEWcC5VbTRwrSQOjOKI4Avi1StHaKwTrOgUhMO5XRa1VDrK9IYR6xQGvOt8BIwPyYVMG EzSsEK2FJVr= ID Date Data Source [id number] 06/14/2021 07:02:22 PM EDT [facility] Name Value Range Interpretation Code Description Data Arabella rce(s) Supporting Document(s) Nursing Note [facility] HASJIs8nWhFWJmWh95/NQZpaBKDyf9ReHMjgSOa7AXqkHCEzM3FoDZN9pC2wLEF4QScTDvMwReAzKFJ3 lbm [file] RRNqGhSJ3DQWo= ID Date Data Source [id number] 06/14/2021 01:09:13 PM EDT [facility] Name Value Range Interpretation Code Description Data Arabella rce(s) Supporting Document(s) Care Plan [facility] ZZSISw8qWtWUDiPe05/TCCbjPJVol7AySLduKWw8ZIfbRAAtR4LhRRS2sE1pBDV7WRkNZvKhNlIiTIU5 lbm [file] stopper maker+2GfJQecGPWdN0fYMi2+33/7AQUbnKJNwm0B514 [file] ICAgICAgICAgICAgICAgICAgICAgICAgICAgICAgIC AgICAgICAgICAgICAgICAgICAgICAgICAgICAgICAgICAgICANCiAgICAgICAgICAgICAgICAgICAgIC AgICAgICAgICAgICAgICAgICAgICAgICAgICAgICAgICAgICAgICAgICAgICAgICAgICAgICAgICAgIC AgICAgICAgICAgICAgICAgICANCiAgICAgICAgICAg ICAgICAgICAgICAgICAgICAgICAgICAgICAgICAgICAgICAgICAgICAgICAgICAgICAgICAgICAgICAg ICAgICAgICAgICAgICAgICAgICAgICAgICAgICANCiAgICAgICAgICAgICAgICAgICAgICAgICAgICAg ICAgICAgICAgICAgICAgICAgICAgICAgICAgICAgIC AgICAgICAgICAgICAgICAgICAgICAgICAgICAgICAgICAgICAgICANCiAgICAgICAgICAgICAgICAgIC AgICAgICAgICAgICAgICAgICAgICAgICAgICAgICAgICAgICAgICAgICAgICAgICAgICAgICAgICAgIC AgICAgICAgICAgICAgICAgICAgICANCiAgICAgICAg ICAgICAgICAgICAgICAgICAgICAgICAgICAgICAgICAgICAgICAgICAgICAgICAgICAgICAgICAgICAg ICAgICAgICAgICAgICAgICAgICAgICAgICAgICAgICANCiAgICAgICAgICAgICAgICAgICAgICAgICAg ICAgICAgICAgICAgICAgICAgICAgICAgICAgICAgIC AgICAgICAgICAgICAgICAgICAgICAgICAgICAgICAgICAgICAgICAgICANCiAgICAgICAgICAgICAgIC AgICAgICAgICAgICAgICAgICAgICAgICAgICAgICAgICAgICAgICAgICAgICAgICAgICAgICAgICAgIC AgICAgICAgICAgICAgICAgICAgICAgICANCiAgICAg ICAgICAgICAgICAgICAgICAgICAgICAgICAgICAgICAgICAgICAgICAgICAgICAgICAgICAgICAgICAg ICAgICAgICAgICAgICAgICAgICAgICAgICAgICAgICAgICANCiAgICAgICAgICAgICAgICAgICAgICAg ICAgICAgICAgICAgICAgICAgICAgICAgICAgICAgIC AgICAgICAgICAgICAgICAgICAgICAgICAgICAgICAgICAgICAgICAgICAgICANCjw/lEElQ6ixyJRdxp Z9C7cxIz3BHc0QMR0oi1OzLMLrFLprbsMtThnZQdRgOGYiJxpBRay1GOzaQR3OkYAsU9OyS1CnFHquSC 9EKRPhQSBnhXTuSMDcJPUpZrW0ZMAoVTlfMQ8LoZWe STkvILYcYZDaUaMjYUGuRN7FDAWyO787bdAnNv7YOn0SFhWdHX3eea1HGanoYIQvBveGHyb6HDhiWL9F pRZwzRBuEXRvAUWFCfSnU5jrh2FaKivaXHPXKMawRE6Fh4AaxWKkPTf+Hd5ASY9do0TmTNmtPVXdKN4r hb0OVLwOQbXpZ4RsfJjeODVjuyGaWCeoylYluVLIwC JcC3szRMW9vFIgZDVWJPH1AHOtGkWwSeDcSRNeAOknPSOUIBtLMwEhQ5Mgs5EtCiI4DRCtPcEmPHqpID KmGbK6CP67bOrmQW2VNHRqRKOpKR55VME5JVUyMa9FSq1YMrZtTN8iuj6MPsavNUBqSokHYgt6KOniOD 9AvXDdF8RijTMje1qUFcXpZ3MBBKP8IRFsHd7ZZULc MmSuHQHfJPlgEL0yPTYaCXTFbOmmhsC5LC3RTL8mxlFgCT0LClRhNe4lBi1BQdDxE6VqL3BjLFLhBRFM IAhdCT0NTCyiEE1oFU9Ys1XUkUXtcA9hqo6ZPSHrVMMrWdztjc6NQwipD1D4oAfePYAiSmnvZVSOMSee PU9EHCUtNBQ0HBEfLmRvPABQRiKrD51pOZ0HF9Vho3 2rXwZ6VJKcEkWyIBxuLW81mDarlnWfsLRhjOcdJH3BQx6+DQplbmRvYmoNCnhyZWYNCjAgMzANCjAwMD XtDNMnUFOpJfP2YdZbFu4SLCYcNDWfPPIkHsZuCXOeLQXgVCjyPQMnGLAdGDYvUCLlNJPwFM0EMiElLA EvCtS7TyVmKKEwJVApzf6FUFEnXTCcAYU5GjDeMYBo NPMiIGzgQAEdIEBcMCZaMFDoWEXtVP4JGxSgESCfGVFuWFCtTVGnGZOagy2UGGDbMPTuWxFrCKBcLIQd HKBiIXwhVZGwDISxLvU8CGGqMCRoMH2LFcTsLLOjJBRuAAWjVWTnDFUopq7KBVPbCZHyCHX6UyZyRCGt SHQbDDfmRQBiHDU8CEuwCEArXUXxZY4SHwYzHDDmTR M5McVbJBZpPRBcbx5WVTIoYVIwAFkrYFCvLUTlDBZyGQuvUGGaRSF3FJYkJDMxZQBgFJ2NBmAjHNPdGG aiGiLaTIUdGGFtvo5AHVWrZTKqDMI1RQCoCNLaJIOgQLhzAQFaOKU5Buj7FBMeUOXrCR9WDtVpYXEnCV zlGipeKBApYPZhbz1SKBPiRPFcPIU8GaSyZGQbUJDy WDcdDGJzIXJoDQX7VDTrWBYcQM1EOxUbXXEaGdVxCZQoBGJuGRHdqa3VYSKlRVGwSFQ6MQPjXGAbSOSl OOraDOOsEAIaKOYiBPFbJFWjQG7ANdUdOROlGlM6HsMtKILmGZXzye9JSFOhHMTtZEw4CAItVXUvCBOf QSdnMWObZZXvIyLoBBCzMALdDH1DAsZtTORoZcU8Lx OlKOKrAPPabt2UVDEsIWUlFvl1EqKcVVSoBDLmOFvsOJCgRARoSMh9GIHgIJYyZZ0ZFoHjZSmhZMNEPa p4ZBjkA8y3TFHbBT9MR3Kvf5QlAcvdDSXLOMiaMF6kssRhUCKyDw8AQ6tCUzv4VOLlQAPjEnWrLNOuDN FyOsVbGyGpJYFmJ5F7QHa7LS4iZNFuJsPwPJVtHKXo CIPwKiPsMPC8CHEuVuRyUGMsChA8PpHoAS9FTj7MGfY8MJH4eRRpNl4DBlYeWmGAEwZpBJ7RULc= ID Date Data Source [id number] 06/14/2021 10:40:29 AM EDT [facility] Name Value Range Interpretation Code Description Data Arabella rce(s) Supporting Document(s) Progress Notes [facility] QPOXLx6rEcRAVqJp50/WMEqpAAXll6AxBXycMEd7LXogIFGmK8XuOMT6xL9eACZ2HFpSIkTcPuLoAUU6 lbm [file] S6BP4oGNGSTm1+URaobQAipBkaLDFMFuA6HvD8EZciZVAMXb9I ID Date Data Source [id number] 06/14/2021 06:08:51 AM EDT [facility] Name Value Range Interpretation Code Description Data Arabella rce(s) Supporting Document(s) Nursing Note [facility] ZTQAQm3dBgFBLbOa44/EUVckPDMyi3OcCBdtICg3EWbuACGaP1GtPJV6eB2dSJW2FIlLPyEuCzUrAQJ2 lbm [file] Kw4QByM6XriKNrAnGZ5AUPx= ID Date Data Source [id number] 06/14/2021 05:18:23 AM EDT [facility] Name Value Range Interpretation Code Description Data Arabella rce(s) Supporting Document(s) Care Plan [facility] BXZKLb4fMrHZQmYx21/GSXigLMPsk9UxUDmyOGo7YPqhVIBsN0YeFIU2hB8hNUV9HChIGvMtAgTqHPE0 lbm [file] AgICAgICAgICAgICAgICAgICAgICAgICAgICAgICAg ICAgICAgICAgICAgICAgICAgICAgICAgICAgICAgICAgICAgICAgICAgICAgICAgICAgICAgICAgICAg ICANCiAgICAgICAgICAgICAgICAgICAgICAgICAgICAgICAgICAgICAgICAgICAgICAgICAgICAgICAg ICAgICAgICAgICAgICAgICAgICAgICAgICAgICAgIC AgICAgICAgICAgICANCiAgICAgICAgICAgICAgICAgICAgICAgICAgICAgICAgICAgICAgICAgICAgIC AgICAgICAgICAgICAgICAgICAgICAgICAgICAgICAgICAgICAgICAgICAgICAgICAgICAgICANCiAgIC AgICAgICAgICAgICAgICAgICAgICAgICAgICAgICAg ICAgICAgICAgICAgICAgICAgICAgICAgICAgICAgICAgICAgICAgICAgICAgICAgICAgICAgICAgICAg ICAgICANCiAgICAgICAgICAgICAgICAgICAgICAgICAgICAgICAgICAgICAgICAgICAgICAgICAgICAg ICAgICAgICAgICAgICAgICAgICAgICAgICAgICAgIC AgICAgICAgICAgICAgICANCiAgICAgICAgICAgICAgICAgICAgICAgICAgICAgICAgICAgICAgICAgIC AgICAgICAgICAgICAgICAgICAgICAgICAgICAgICAgICAgICAgICAgICAgICAgICAgICAgICAgICANCi AgICAgICAgICAgICAgICAgICAgICAgICAgICAgICAg ICAgICAgICAgICAgICAgICAgICAgICAgICAgICAgICAgICAgICAgICAgICAgICAgICAgICAgICAgICAg ICAgICAgICANCiAgICAgICAgICAgICAgICAgICAgICAgICAgICAgICAgICAgICAgICAgICAgICAgICAg ICAgICAgICAgICAgICAgICAgICAgICAgICAgICAgIC AgICAgICAgICAgICAgICAgICANCiAgICAgICAgICAgICAgICAgICAgICAgICAgICAgICAgICAgICAgIC AgICAgICAgICAgICAgICAgICAgICAgICAgICAgICAgICAgICAgICAgICAgICAgICAgICAgICAgICAgIC ANCiAgICAgICAgICAgICAgICAgICAgICAgICAgICAg ICAgICAgICAgICAgICAgICAgICAgICAgICAgICAgICAgICAgICAgICAgICAgICAgICAgICAgICAgICAg ICAgICAgICAgICANCjw/eHUxX4deuZByirE6P5lhSa1GHk1YVH6nm7CmRGOtPBbqscVdPlrODcYrVREg HomSKoj1MArvCW9UtTZnA8WrL9KyYWysMM1VTKZpNZ XxrTAlBLJgDKYdQrV8BHGdBZneRW2XdRXmWZbjPGZqYXHmOzBqERMwLM6FHVCvL433tmByEx9VRd1INd CaGX1kzo5AElKpICCaBjwWHpb2BGfiRW6KiWWvmEVvDhBdMGZIRnZeM9zed8KnRpEsKYOGJDkbDZ4Tu5 VudCAxDQo+Uu7PVM1jh0CwNNrlXeVxEB8hex9NZWkB YpAcI2LvdMjhILBykuMbEFzsxrSyxUYOtBNpgNUjEmAwy3JjMVHbFSDQYGN2TZOdXyPsXgMyKZZxFAux XXOCNGgONrFtC1Cen5NbUeU6KFXtFuPmSPitOUPeVsV7PG27eXipNM1HDASgBSObWM98TOBrPJXsWw4L Ud3PYvOdSA3gcf5ARpPpFQElYvvEBhm1ZPqyPA1VpQ MwD9NouFCho5gSGvBcQ9CPQCYzTSUaZc3BFLWbMtVlBCXlODibEN2yVWMrWIXBiDztkuH3AY0TZE3qex SdZG3HImNxQk1wDf0EBnWcQ9GmE2XpQQXbOVXWMQtwGA2QCGhlWM3gUH8Sb2VFlVRtwZ3emt7KHMMoNU PqQmozsd8LWpnaK5D9zFagDTBoPyTbRTAQNIxfTY8X XXOzKIG0STXjCITnKQJRGgAyM56vOT7ZM5Kfc77pRhN1KXSdYzJbUNobCK77vPowdtJmpRNlgRaaTT8R Cj4+TMlrwbNvLfnOVtwhXPGKVlCcKsNYXnSfAWNyFGTxSVGrXuD0OlGwAw7PIZTjYLVrJEAxCwOtRMRv QWElTAemIVPqPDZdXQKaUZFsRRTbKH0EDoMjVMUbRJ H3EiqpTKQxSJJrhz2DFHTrHQQxMAX0YmEsDDAtKNUfSQuvWLOlFBOlTXziYJSaIXIcAY0MDnSePZVyKZ R4WLFdCZIcRVOxig0FZSWfLAAgMpKxNCKsHTAjNYEfPStdBLGyFBLkICR9EWWbIZCtQH1AZtBbMHKcDK O4QWqkDDCuEXStbz9NNIKlLAEpSHt5IRFrKACuMTQy TAubRLUbSUZ9FHc7GNYbGOLtFC0OSeDjTKIoAAXlYDXeMBKsUWHzzl6BDHUhHIVpGfM2VRMmUADmORVo ZBfjXJBjSFH6FAG0SOFfBVBbCT6DUcUaLUMuHWt8HjBeRYEpSXIcjd0ZALIzQRWdTMV5XYXlMOTvOGJk KOgfCWZwYXR9Yun7ICArPICkOF5BEpQjAHEpLFn9Bf mvNHHzDPGyve8EQQPdCIAmCFj9QEKnHZCqCESwIDszJUWuIVOfUsL1NBOzKBJiMP9NJhDhZPItXlJ3Zi SyQRXtNIDyme9FNUMfBKQuZGWfULCrUWUxZSZjWGilSRKuSKLlUNZoNNXiVBOeTD0UFvQjBHVlNqIgRs jpMWBiBUNeht9LYSYsMGZlQbSuEJFgUQRvEMXzWQlz FJIfTAX9FPgqHEQaLXDeUU2XObXuKJCaWuxpQqRrAOZaQBPabz0EERSzFGFtZKOiYfGaUTCdKSPdBJdq LKLwGYR8FZbwXLVnODItKY9VCbZhCBSbXPRaCNGsZDTyUUJltb4UAFRyBSE8BMG7SSXwWVJaORKiPEjy FALyBXGaVWXjJNPfTZNlJX8VEaRjEZWvKHIzQQJwMW GzXFOoxg7QMXLoTQJ1EnJ8YVIzEGPoBPCaYUv8dvQfsACrIJc8DD0PY6AmdmUmCiGCCn4Hh090RTB2SP FaGa9MS5bdXr9hLRIaFOPIDr7IVKx1TgXoRev1FYJxOVIsKZIqFqKyCQtjBtXzJDVfDjMyMlN+IDwyMD CgDNO0QXW5OGMxCZQqQHPyZLGcEgK4VMOxScAnCh8a XSANCj4+DOjsgWRpuImzENISVdDtCUquKGfoLDRYKy1D ID Date Data Source [id number] 06/13/2021 07:23:07 PM EDT [facility] Name Value Range Interpretation Code Description Data Arabella rce(s) Supporting Document(s) Anesthesia Postprocedure Evaluation [facility] DYJDOy3cRhAFWpEe88/HHTabPOBru5EvMGuzNSs4RRnmVFVtB9NrGNG6sO0vAMB0MPoTWtJkYgOzDHT1 lbm [file] S6SC0mMZVUNt6+LOnrwJUylIeuAVPOQnZmTbNqLTtrMWXZKn6J ID Date Data Source [id number] 06/13/2021 07:16:51 PM EDT [facility] Name Value Range Interpretation Code Description Data Arabella rce(s) Supporting Document(s) Nursing Note [facility] JJUIOu4vZfSNOgHm05/FHQojRHKhd3BmUKsqDAc9HBciFHSgC2JpUDG0fI8hJHL3YThUEmZrKnRaPRO1 lbm [file] HQT2CyKkACu2Ypz8EEH3GOZ+ZB1jHFl+Nk3Sp7QcasU0geNdETaiHRR5RZ6CYQJJG0RHNc== ID Date Data Source [id number] 06/14/2021 04:48:00 AM EDT [facility] Name Value Range Interpretation Code Description Data Arabella rce(s) Supporting Document(s) Amphetamines, Urine Negative Negative Normal (applies to non-nume ny results) [facility] Barbituates, Urine Negative Negative Normal (applies to non-numer ic results) [facility] Benzodiazepines, Urine Negative Negative Normal (a pplies to non-numeric results) [facility] Cannabanoids, Urine Negative Negative Normal (applies to non-nume ny results) [facility] Cocaine, Urine Negative Negative Normal (applies to non-numeric r esults) [facility] Opiates, Urine Positive Negative Abnormal (applies to non-numeric results) [facility] PCP, Urine Negative Negative Normal (applies to non-numeric resul ts) [facility] Methadone, Urine Negative Negative Normal (applies to non-numeric results) [facility] DrugMinimum Detection Threshold (Conc.)A lubcxevbfw5115 ng/mLBarbiturates 200 ng/mLBenzodiazepines 200 ng/mLCannabinoids 50 ng/mLCocaine Metabolites 300 ng/mLOpiates 300 ng/mLPhencyclidine (PCP) 25 ng/mLMethadone 300 ng/mLOxycodone 100 ng/mLNOTE: Phentermine may interfere with the amphetamine analysis.NOTE: This urine drug analysis is a screening procedure. Presumptivepositive results are unconfirmed.[facility] recommend submitting positive specimens to areference laboratory for confirmation. Oxycodone, Urine Positive Negative Abnormal (applies to non-numer ic results) [facility] The above 9 analytes were performed by [facility] [id number], ,[place] [address] ID Date Data Source [id number] 06/13/2021 03:43:30 PM EDT [facility] Name Value Range Interpretation Code Description Data Arabella rce(s) Supporting Document(s) Op Note [facility] FOFTCo8pFsASAqFt50/BQEqqABPac0OqOJzqQQc0TXzjQPEtH4OxRPY2xN4aBKY5SAfRDrFdPhZuOEH8 lbm [file] ErMrRmXlVcXnNY8PWx8TEtW9IQS4oWPoQi1MMhv9LIPJJrYmZD9VSUw= ID Date Data Source [id number] 06/13/2021 03:37:22 PM EDT [facility] Name Value Range Interpretation Code Description Data Arabella rce(s) Supporting Document(s) Perioperative Nursing Note [facility] MULZYr8nTdTFArYt52/XFIsvDXAum2RlXHgwBTj8QNdaAAUyE4XtVUB2hY7lVQK3HBaOEqPyTpMfUMB3 lbm [file] PVdnLQO6USVoPHB+VF9vBJq+Tq2Rw7SpyfJ1bbUhKKmdZKp4YO9ZAWFAR4VXLu== ID Date Data Source [id number] 06/13/2021 03:31:09 PM EDT [facility] Name Value Range Interpretation Code Description Data Arabella rce(s) Supporting Document(s) Perioperative Nursing Note [facility] BFQDRr1fYwLJNiVq07/VWWtfNQCsy3PnKZfzJRj7TEkeFODrU9IxDWY4rZ5iEEZ0SCqKUcTsXuMaOBA1 lbm [file] YvO9NzhvHKFoGeyzPTG+XM1lUVl+Op9Uc6UovoD6joXvGFunDJa8Hl4QZTBIV0SPKn== ID Date Data Source [id number] 06/13/2021 02:59:29 PM EDT [facility] Name Value Range Interpretation Code Description Data Arabella rce(s) Supporting Document(s) Progress Notes [facility] XQKUXt9dZzJUJyJj11/AJRjsTXFba7PyEFyuFLi0FLroFHSsN8FjYKC8fO3mPHY1EJlXWoWiXpLjVNE5 lbm RpLfpADgDjESBxYupSGtTjBOhoUvtkmPLvTM4GdWM2SGFyC18lSMHfXPLqG8LrMLFuZLX+Kf9DVZKmpF QzPM7QPrkH4EpldvM9YT8cFA+Dpi/DXSLH9lViXd40wi2MSThoissr7IQJd3CjmdN59SMWn00ihC0F4k ienL9N0AZzQF49MGhwsbe/vROHqZFSivX/zcc01+Ji Zh21QagCMOboeFgLTWVpqCpbOm6wQ2vq1n2EwKVsc/9rzkYATsLZigqITPMYm0KfVUYao+ly9TiKO/B1 FomenZ8XE1+rCAIqDc2Hdoh0r+iIy10ZlTbH4n6gd4Vlj5GSATHda2nwdEw8rM1Dnt9Je9AJ4yh9ePP6 zZcGmqzfiD7d0uHc8HH4grQD2pFXlzgKLjxccjB4rX 6UYkFpvdMuWWOKvjqNDwdDpJdKZCzyBteiQPpKWYmi1SORi2JhyzMBQfOCK7iFEO8h2tYGFISKx18lvD 6P4FpKWO1fxIqR2LzBf0ptdY/XHm/Ob6AbgDrAq8oqsIzJwznszGkkouQeDSQotoXe6D9yTe7Q36C1D/ RLHUhj5OvnPRMW95aFNXTS8oZpANrDohM5XMPSgyWY [file] G9XIRwFqWhEXZpLqj+AB6gJYm+Oe9Zv8HextM0duJtTFmaWkNxFx7OVPMOR3LHSx== ID Date Data Source [id number] 06/18/2021 03:02:00 PM [facility] [address] [place] [address] [employer] PATHOLOGY CLIA# [id number] Surgical Pathology ReportPATIENT: SIENNA FOSTER CASE NUMBER:[id number] #: [id number] Date Collected:06/13/2021ccount #: [id number] Date Received:06/13/2021OB: 1980 Age: 40 y.o. 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 CHRONIC INFLAMMATION OF NON-ULCERATED MUCOSA, MILD TO FOCALLY MODERATE.NO HELICOBACTER PYLORI ORGANISMS IDENTIFIED UPON IMMUNOHISTOCHEMICAL H. PYLORI STAIN.LDM/SLMGrossThe specimen is received in formalin labeled gastrojejunal [...] include the areaof ulceration in its entirety, 9-8-ewcyttdquo real estate representative sections ofthe tissue to include the blue-inked margin in cassette 3. BRANDON/kb Following microscopic examination of the initially examined sections, additional real estate representative sections of the specimen to include an area ofslight dark red discoloration noted on the mucosal surface are submittedin cassette 4. BRANDON/slm Electronically SignedBy: Wai Castañeda, MDCPT: [id number], [id number] PathologistI ATTEST THAT THE ABOVE DIAGNOSIS IS BASED UPON MY PERSONAL MICROSCOPIC EXAMINATION OF THE SLIDES (AND/OR OTHER MATERIAL), AND THAT I HAVE REVIEWED AND APPROVED THIS REPORT.PERFORMED AT: [facility] [address] [place], [place] [address]THE TECHNICAL COMPONENT WAS PERFORMED AT [facility], [address] [place] [address].MARKETING PROFESSOR: WAI CASTAÑEDA M.D. [facility]# [id number].SIENNA FOSTER Page 1 of 1 Name Value Range Interpretation Code Description Data Arabella rce(s) Supporting Document(s) ID Date Data Source [id number] 06/13/2021 12:41:00 PM EDT [facility] Name Value Range Interpretation Code Description Data Arabella rce(s) Supporting Document(s) Care Plan [facility] REYPCo6zLkAPTeGn58/REZdoAFPmf4JrLNwiDXb3AJciIWLgT9AmYYT7nM9nVJZ7IOjXSnEsZwXgSPX3 [facility] [file] stopper maker+0CdRMmaFLHlR5sBDk3+33/3QLFooIRMrt7G084 [file] ICAgICAgICAgICAgICAgICAgICAgICAgICAgICAgIC AgICAgICAgICAgICAgICAgICAgICAgICAgICAgICAgICAgICANCiAgICAgICAgICAgICAgICAgICAgIC AgICAgICAgICAgICAgICAgICAgICAgICAgICAgICAgICAgICAgICAgICAgICAgICAgICAgICAgICAgIC AgICAgICAgICAgICAgICAgICANCiAgICAgICAgICAg ICAgICAgICAgICAgICAgICAgICAgICAgICAgICAgICAgICAgICAgICAgICAgICAgICAgICAgICAgICAg ICAgICAgICAgICAgICAgICAgICAgICAgICAgICANCiAgICAgICAgICAgICAgICAgICAgICAgICAgICAg ICAgICAgICAgICAgICAgICAgICAgICAgICAgICAgIC AgICAgICAgICAgICAgICAgICAgICAgICAgICAgICAgICAgICAgICANCiAgICAgICAgICAgICAgICAgIC AgICAgICAgICAgICAgICAgICAgICAgICAgICAgICAgICAgICAgICAgICAgICAgICAgICAgICAgICAgIC AgICAgICAgICAgICAgICAgICAgICANCiAgICAgICAg ICAgICAgICAgICAgICAgICAgICAgICAgICAgICAgICAgICAgICAgICAgICAgICAgICAgICAgICAgICAg ICAgICAgICAgICAgICAgICAgICAgICAgICAgICAgICANCiAgICAgICAgICAgICAgICAgICAgICAgICAg ICAgICAgICAgICAgICAgICAgICAgICAgICAgICAgIC AgICAgICAgICAgICAgICAgICAgICAgICAgICAgICAgICAgICAgICAgICANCiAgICAgICAgICAgICAgIC AgICAgICAgICAgICAgICAgICAgICAgICAgICAgICAgICAgICAgICAgICAgICAgICAgICAgICAgICAgIC AgICAgICAgICAgICAgICAgICAgICAgICANCiAgICAg ICAgICAgICAgICAgICAgICAgICAgICAgICAgICAgICAgICAgICAgICAgICAgICAgICAgICAgICAgICAg ICAgICAgICAgICAgICAgICAgICAgICAgICAgICAgICAgICANCiAgICAgICAgICAgICAgICAgICAgICAg ICAgICAgICAgICAgICAgICAgICAgICAgICAgICAgIC AgICAgICAgICAgICAgICAgICAgICAgICAgICAgICAgICAgICAgICAgICAgICANCjw/gEXwR3fdeLJxqg I6H7ydZs5JCd6ACK6jk3SkAKDcXBgugcOyOyhKFmDoCAEwLioCMgf5MSlwLZ5PrKKaL6PzV5JbCDntSV 9JVYSlJLShkLKtLBQkBRSaOvN2QMCnNJfxKR0KfTWz XTdyZYGrCYXzIyEyPNBwIV0UIDKkG607afStZn0HPc9NLqZoYB8eqd7TAfnhNJHcDcwSJxg1RHwvBO7F mVQcaAIqIUXxXTMWQfQiT0alm3HiZkhaTAIHSGgpHK4Cp4GvxNMiXWa+Cm2TKF5bh6DnWDxtINFkPD2y nu1YARzCQbQrG3UtoDxtUDVzuhHqXWsflzDngSAHFU DvNLKdx32mzyclMp8fWFJlNEEmHW8oKYUhUIAhPvEvGEECQJ6GZJXiQVLzrMCeGXGnAQZOAD5LWNuvXZ C9IuutbcTkjDFwFTrhZV2TISQzssPwVnbxYUJLIYg+Xp8MPP3kk8SgUYcjFZGyTU0spm7XQAeGUbCuY5 H8tLRcM9X2PPsqVt0YBRQaBZMbFkOzJSWNUSgxJQ8S TI3fdnY7JS4UzLNsUPQnMXMzaGBlQBc2U02urEZxJZoiXC5KJSS+Mau+Im1RVDUaSJIxYCRrSjGcIDXG OkNbS3WbT1SGn2JjP3NbDR63xVzadoZgKKxiLR0WIR2tFMMnSVDIDB5AjRTisE8izyHdOsXoAOUSAnEl E37wwGFuOOPwXGN4XFEaLb8GDHMsT2BhmqGobPmeid EhANCgJUQVJT7IQMyvjrUnfYQroRclUD56nOdiLO2KCb9VKpBrMY2xzj5FiKSaJp4OIUZcWP7LQKBpFQ YgULFoMYK4IQQpGgArTIquZHDvBQZaXPA1DWHjCFGlCR8RDcVjQJSxPbH1EgMjUREuBDUkrn4LHHOfZK DdHcA3PxHtSVJtPEGuELxuZPKlUYLwPOO5HNNkSCPl HI5OLdRrQAKrVYPlQZWyVKPiAGBuxm7OCOOkAVZrNgI2EuIyZYKaFDXuXJfaRJUoNFZaUXQ9NMHhWZUs JW6EUmRzANPeUGRzGrtnAKVsSNMenp7JLCQiBGPbIKY8XcDdNGDrXZPwSOxvHZQmBIE9Amd1USRoGZZy WW1GYsBuHMNtJDH0HfOnMIHkHVOxrv5SKFZpPKYnAP NkVrQmODIfBRRtYLfsPWUgSEY8BiXuBZBlVYBfZC9XMyQuNINwSOL2AOMrQZFlOPDmqs2PAFXiXSYgAX U9RdRuJFCwOJEvRBccZXOnGPM3IKh5CLKfYDVuHC7UFdJtQDFhENa5DWffODVqNXScld5BDDYzTVIcQD ElPmOnXGRkNGJzVZffYAHnANJ8VWsxEZOcKNWiEB8I OgZlWDPaSsBoZFMxOOVbMLXkkn4OLKMpTEHhMHKzBnPwZMVzLSMwYVhaCBIpOIYbTVi4PITnTXOwWN6U FlFqNATyNeW3KSNkDDScVKJazq2CKMUgDZRyXOSvYsUxRTJoGQMtFYbqZDReKERaMba4UBGsUGYaJW8K JzHtIBFePzPpVoUbCPZhFJEari9RZRNkRTBvCaP9Bd PoJRQbVBTfJQvaRBGmWEEvDeH1SLGyGFOpUB9SWaRqUWZeFuR9OPtwKJUnWKNsaj7QqKMduHqsek5UUN zDCb2MwQzcOLEiCKngGq9hzBWzPWXcDNYDNp5IsgNqLESpLJMNHBccCUHvWKe5JFMhV0ZeDJMyEnhiJD ZgX4IpZyOfCZasIVxdKokiAgC6ZkXaDxAwLOIyXLOl ZCK0JJQ8C8F4W2N3DJI2WAXbBpY+PF6vWRo+Cz0Dr7PqbqT0itLqMNokKHNjDl6GXQBKO6SWRq== ID Date Data Source [id number] 06/13/2021 12:35:23 PM EDT [facility] Name Value Range Interpretation Code Description Data Arabella rce(s) Supporting Document(s) Progress Notes [facility] QUJRJm4dTkNYAqKr25/OMTiiQYPqh3SvQNclVXm9ATrzTKXmB8BzGFS9eL2kRQH7FEcKZmXhCpErPZW9 lbm [file] ICAgICAgICAgICAgICAgICAgICAgICAgICAgICAgIC NxXVQoQDRtBCMfSSKsVOYaVXLfFHMkNMOtWGZiOSKoNQJtSCHfXW3TOSGoNDYyPXKqDWCgCHSxJIDdQL AgICAgICAgICAgICAgICAgICAgICAgICAgICAgICAgICAgICAgICAgICAgICAgICAgICAgICAgICAgIC ZjSSAbUJLeICWhNMHqPLDeUWOlTI5GTJSyLKNtBUQo ICAgICAgICAgICAgICAgICAgICAgICAgICAgICAgICAgICAgICAgICAgICAgICAgICAgICAgICAgICAg GTUmVXLwRTQmXKVbKPLfGEAjLYQsYLVdJWHuXEGwJW9NPDLyFWIvEFRrQJRgFVDhARFgNYNiDSAyHHQs ICAgICAgICAgICAgICAgICAgICAgICAgICAgICAgIC WhKPBdQPWrSTLyRXXpQYLhIIYuVTUrGHLkBKCoGROsIVKaLZNkCJOgYC3VFSMpKQKtSCXxRZPaBEGxLW AgICAgICAgICAgICAgICAgICAgICAgICAgICAgICAgICAgICAgICAgICAgICAgICAgICAgICAgICAgIC IkQIEfMPRgLZMeJPGxOTWkELRsZDOoHI3CFWArAEGc ICAgICAgICAgICAgICAgICAgICAgICAgICAgICAgICAgICAgICAgICAgICAgICAgICAgICAgICAgICAg MEJpKMXdORDxUTTbEFYiWDRpAETzNQYzINKhYRVtBQRmKI4CJPXoQESgAYLjMORdYEVnPMBwUOFbCFFg ICAgICAgICAgICAgICAgICAgICAgICAgICAgICAgIC SsZQMaLXMcQUKyTYQgPEEqRDYfIERhGZKuUFPbIEVkZMPwZDQsBMTlHWKwTV1DYKErSJSyDVKzCHQmLR AgICAgICAgICAgICAgICAgICAgICAgICAgICAgICAgICAgICAgICAgICAgICAgICAgICAgICAgICAgIC OaONWnUFYrJCZqVSZcOPKlTJVoOTHbLKIrUE4RRZDp ICAgICAgICAgICAgICAgICAgICAgICAgICAgICAgICAgICAgICAgICAgICAgICAgICAgICAgICAgICAg KPGcCPRlLOAsWPUfNQSyZEGtWQIfFDQuHJTfFEFwGEPjOCAlZX7QLCEfANFjCPFzPYNsDPSrCPWvOCAo ICAgICAgICAgICAgICAgICAgICAgICAgICAgICAgIC GaXCIpDLBjVAYtGXHwVAGwJYYjQHRdGRTdNLFyCFLkNIPuWYZhLNYuCJDqZXPkHI0YKH54jDHzn1A7OL SpDG1wilj/Ch3YZFcqxlYvuTViHZ4IAcPcDF2mct3PLbEqJE2lhj3RHXaZZsYcC3T8oYRwZRIoAAPKQo VuU94mBDleDg91KUbrQSSiApBfCGc5Lp0KPwAoY0kb VBQfUoR9KJHjZvZ0FVXiDgC1SEPfFtGrNMNjLYKmHM7NKZNgV313pnVdLS0EZg6TLpWqLC7ifn8XJOKd VBYfMibXGfk2YEgzJJ9MkUWbjVB5UeNeIWKDXeKfN9war3PzIVTyJHQLFTgwIU9Qw7XbdBZsAXw+Pg0K RC6ff5McBMr4EsZqYW5okg6IBDzTDpKoH3YtcCqgUQ Ybw8wcKERqUF4kyTMsTLB1GUWwbhhqpRvyCXGEOIVurLSruDueUYXMYRDJRdMfgBGlPZ86SlKxTxWnCU V1KfBwXN8qZVqzVC1KTZB9GJxtVADfBGHvS7fMOdKzHTlaBVFpiKolFQ0CAlRwE9QeawYxbXW4LpXpWB INCj4+ZOemqyBfRaiQGfB7MVXja4XvCZa6GF2UUOBo XFliHU5GXMMcnF2qZWitWW1EDvF9GJGvZWSWBtWpD03cxNKoBEd9B3KaTwPoNWEdTmlsFTCdWXspEiEk ZXMgWyBdDQogID4+ID4+FWcsMY7JBCguvlGwLSImGb9LXKEbUVTwDW4oQFYzGXNdI6N2yCsdPOSLVlIp G3ftxywiAJ5wZGWcS063aJizzyGoJXItMKStTv6AMT OrMLN6DDLfrMOdARYaLPKPVJjeRX5KbEEtLHZ6mB8zKNlnLHZdXYOdI8kDPnNrwTxbDN26tLvbgsLcxM BdDQo+Fn1XNK5cn8QcEUe0stJgURbpQXD3DNxrPZOdXHAvVJFeSLH1JYG0WLHEIdNzOSPqBULvFTdwVP BzQUCquy6OEGWuJGMqCUOjLhLxIDHiMYKgXGluVPAp QIX2OIL6MWCsQSDkGR8UZrAdAPOmVPMbTGsdSBScVFMmsc5GXJMjMXVrWqosDBNxFKHfEPGxRKjcVIHu NFDsPVP4BVXmIKVvMF8SBdZxPFXcJRHsEdYzJYBwMAAgol6IPWYoKIGxXDBxGKZbGXYqJYNcGPeuSRQz RNQ7RQhrGWTcBSOcHA2JAtAxLEToYWbeHKqeJUXdJG Mgbl3ULHWkKQYxRCr9NeOfWTHeKOKuWUgnMKUmWAUdRSXeRCAcLGQnCP4RXbLaKHQdZHGfVAKnOCHaUI Bcuy2RNEErCHQqSTImUlIlFRDmOXPyILhfAJGyKFXzTUAoQGFzJHNkSK7POaZpWWZjDQPjRaNwNIZzOV Efln6KXBZvDVSkZqJ1EYEtRUStPRXnOVtoOHZoLZPg DnUeSAEeRKBjDO1YIcNbDSZuVMS6MYNiLOMiGKWvup9ZKAPvTBTfGrqqQrAvKVUiIFKpKRlfMLEjQNL6 XEh3FUKeVDIsBZ9RPrChJLJpBLHxFJKwQMEyEBCdxu4AKPPsNYVkMIS9RiZkPXOuZXXiZBodWMEwKGS5 UKZoIRXzBLPkIS1ELdLyIIPiTFOhFIibHUWgRAPbjd 6SWSMrNAKxJeHzJVKoPDQrREXcPNviXYHaQFJ6Pav4LQXdSZQiJO3FVmXbCISwXaPgOUYcSCPcTSAsmy 7XEZSfLHQoKRHpMMXhWLEgTYCmZOapWVCsLFGdTdT9GIPnEBKoAL5PRbDjXJXeWvC6FEChUGLzWTEptf 0KMDAwMDAzMTAyOCAwMDAwMCBuDQowMDAwMDMxOTcw IXMjEGRsNC2RFoCuFKLcXjIrDxJeFAMfRBVzpv7RRJMqDHCzWrU6XkFyUFTqMAVbNBcqRGIrQOZ9QFi2 GFZqSRMnKA1RReXnODOdSzh5VYSrYYYzQHPcmk7MJAMbODTvZgofGSZoMBFmVUOzBDvvPATaCNB8GVM0 YLAdCNCtDN9YEiSyZXAcRqtwPIUzTMAlLOVkph8AYE EmLBXjRBD4ZuBdKYSzGAFnRZeeNMSlYAUyBLVhBSRvWXUoJK4BEiJgZLIaPQMuEkNeHOHqGCEdte7NBA WeJSG6ORI1PvDsDXRjLPMuAJp9zqSegIJcAWj6ME3HG8JjfgJkHXFAJr0Bu877YGC2DJHnTa2FD3tzTo 5cSSMlCAKHXs6OEUu5IQWjHbIdXqA7FsX8DjdiOBbr ZGMzOGExZWIwODBlNTA+DNejVmW9DMLeAnp5HBgaX9AyPVOrLhY0ZEPcXtM6QGZ4ZK5wDMPKMu3+DQpz xWNskKodBMHJZlHnBOM5LSnfZLZBEu3F ID Date Data Source [id number] 06/13/2021 11:19:39 AM EDT [facility] Name Value Range Interpretation Code Description Data Arabella rce(s) Supporting Document(s) Anesthesia Procedure Notes [facility] JBUMRm6oYaHQMcBo51/SYBepXJNgm1CwJFjqPHe8DSlfPVWpU2LaWEY9hN9bLUE9WFrATrGzUvTgOAP4 lbm JkYpzYPjMmSSMeCsyNUaPdOTdxQeeoiOKdQE0DjEO3YTRdK44iQXXiHPCeD3TnWTVxWYm+Tw5STCCzwO SsKV0WJzwA1Llcf8XFOW/vTP+Hm+kQtHMBGq1vQA8UsSGfMQZVnY8yPOeYFPIoQ4HDF+Gk94k5srKnZ7 xtj3yeXwL8Rjbp95ihGuf6tq/TnvL5mnyJd4F/k5Sz yYL9/UWgdNd1flliG0eXRgYu2PD8cTzO+Pcf2E+DhEfor/lLyLmebvc0tX6LyWcTRBWNQvSwEBBMXv/5 c+FtB/A5pC1fq7fid68lQb3oWgo9Fn/nhzFn4/zR4WM2/zl0Lll6MyBJNZktnVt8nF75uRd5Ho27VLsx bXTALvhcVA2ecDuuP6QIf1LNYoBJSQMjMLEQfijtRe ISMpaUSG+x7mNIWE69XoWoB0ytUyMvixk0WFXY1edncUqwR9OLMElKo/0J6XWuJEa6UelYIqaNYSM+Mm CATnwA9jaq9hEmwPoPfbGpeqHJM4XpbJpp7sftAs7Upf8Uqn9HD+Zxkr2qrypHmcMu+2NAM0gxioqeYO miu8Ub3/1YBUs/BzMjZSp7YgGtK3bqz/xb8wv0h9JZ DEhFN9rwYa0xQ7ksWa/g0gZXjE68LNhIeCcgJYy4Be44w5Qev2gIkIrdFfEqrjnM0cgNhIR0Jr/m/a+e d8l/+7LKa25b/fR6R8rggIt1FQ1xNQr7lHwmdcBpKXykHtUEQOh05A6cqBBorL5Uh7f4oa/HGahpep5s OaFx0gKqkV/HpoUd5I2hT+jHMGRZ4/pXEhqMfRVcnB Jp6D/ocuD+4lWe/sr9ie9+y9h3QJd3r6CTuyT6RwQPh/nLY3GHv1H9dUC7TgiEZ70ynPNe7Dl/Jackson+wi/ [file] AgICAgICAgICAgICAgICAgICAgICAgICAgICAgICAgICAgICAgICAgICAgICAgICAgICAgICAgICAgIC AgICAgICAgICAgICAgICAgICAgICAgICAgICAgICAg ICANCiAgICAgICAgICAgICAgICAgICAgICAgICAgICAgICAgICAgICAgICAgICAgICAgICAgICAgICAg ICAgICAgICAgICAgICAgICAgICAgICAgICAgICAgICAgICAgICAgICAgICANCiAgICAgICAgICAgICAg ICAgICAgICAgICAgICAgICAgICAgICAgICAgICAgIC AgICAgICAgICAgICAgICAgICAgICAgICAgICAgICAgICAgICAgICAgICAgICAgICAgICAgICANCiAgIC AgICAgICAgICAgICAgICAgICAgICAgICAgICAgICAgICAgICAgICAgICAgICAgICAgICAgICAgICAgIC AgICAgICAgICAgICAgICAgICAgICAgICAgICAgICAg ICAgICANCiAgICAgICAgICAgICAgICAgICAgICAgICAgICAgICAgICAgICAgICAgICAgICAgICAgICAg ICAgICAgICAgICAgICAgICAgICAgICAgICAgICAgICAgICAgICAgICAgICAgICANCiAgICAgICAgICAg ICAgICAgICAgICAgICAgICAgICAgICAgICAgICAgIC AgICAgICAgICAgICAgICAgICAgICAgICAgICAgICAgICAgICAgICAgICAgICAgICAgICAgICAgICANCi AgICAgICAgICAgICAgICAgICAgICAgICAgICAgICAgICAgICAgICAgICAgICAgICAgICAgICAgICAgIC AgICAgICAgICAgICAgICAgICAgICAgICAgICAgICAg ICAgICAgICANCiAgICAgICAgICAgICAgICAgICAgICAgICAgICAgICAgICAgICAgICAgICAgICAgICAg ICAgICAgICAgICAgICAgICAgICAgICAgICAgICAgICAgICAgICAgICAgICAgICAgICANCiAgICAgICAg ICAgICAgICAgICAgICAgICAgICAgICAgICAgICAgIC AgICAgICAgICAgICAgICAgICAgICAgICAgICAgICAgICAgICAgICAgICAgICAgICAgICAgICAgICAgIC ANCiAgICAgICAgICAgICAgICAgICAgICAgICAgICAgICAgICAgICAgICAgICAgICAgICAgICAgICAgIC AgICAgICAgICAgICAgICAgICAgICAgICAgICAgICAg ICAgICAgICAgICANCjw/mYMvV8tbxFZljrH4D5rrZx9SMt9TYL1ui9EtISFkNFypipFtUylFQwHkGATc LuqZDeh8RSegHQ0KrBDgD8AuE2XxJYpvQD6GHJVfVNYaaNHnTDBzXLCdKdU8CIUuKNtgRF2UqTCmMQwx PRVjXEQiIwMlSRGbUV9PFEMoY213rhDuFr3BIb4MDm XwZD9ymo6PTxmmEDEbTsrLRag4DXjoBV6PcOQuhTWbOHGuQJSFYmKjT5ugc7UtIxtkLVYKHYquQR7Jo3 VudCAxDQo+Gt8AGX7mq8FrDAirPJTeYO8rzu5KWZbEUlSsH2BmgXcwXMQtDZO3xIBxdWLmWUKwC9DowP OiBS1oxJIdPKV7VYOwPPPqNXPwGT6himYjPIHCNuJs PPNoALQgAR3lTDTbHILzPuS4VRSQLQ8BCDMqVFXmgLBgPHFxYULPDO9AUOgkWSB3ArqnxkUusWOyMDgx NZ1LACYwmdKxUhemVZIFSEk+Ic5YOV4vz7MiJTfgWGHaEA0ova9YUGhXJxLvA6Y5lBNwF2G7HDyrDm4F QNZsQTEfEjGpJNCWSPmrCJ7HOD4fyaT0GZ9FjTEkSL AuNSWroRUyRUv2J44sxYVcLFtwXY6NLLU+Mau+Dd7WGNDfHYIwIAKnLyLtZRCFWgTnX9OaD8OFe4AgH9 SmJX01rMgcurBbSYieWT9PSA1pCOGiBHARTL5QlBJbwI4ktqMyByWkVEGYOdJvP67isRYyAZKuRRB1PC AiZp2QFLYjK8JhsuZkmAyerkOpMBCmILNDCD6OYEbg ttZjlFTfaOswOT46wJlqRS8NDa7KCqMzFF2yws3YhJExUi2FVJRiAS6LNCHuIBZiYYPaQGE5KOIzBcZp TDxlMEArXKPzNXT1TEYmHQDqMM4WMuAoKFNmHiU2YbkfQVHnPJDjxm1MBZOcJDGuWsS7MTIiWCZuWRPl RIxhGXIjDAOwYXB6QZUaWPKdLY7LIyDxFWRtSMAuRw RfYJVwWSGyeg7XQWBxPYVlGgJgVGTrCNKfRGZnSRkkFOZkRNYxCTY3ZGGsEVPbJX4QOcZeTDWvJOJjJG rrXIRmEHDgxp0FJIRpGDLxZGJvDvGfKSKdOOZtKDunLUKmKQU7GIH3CTGfDKWoYQ2NRiWfTXEqFWV9IK PhTZMrZECahj7DMEKvNOGqQCF7NRRyWCJcVLHyWVjh XRSzTCX1TOLrKGSaGJGpNG5EAlDjNHUxQANuSSQtGAZpQROaku7RYWNxVMNoKLB1HjPdZSRvQUMwYKif EOBgRXM1BdV9EJWsKGBwWK1VZzWgHJDxVRz7YEmoFFNcZRPndk5HNUUlYWZmASV4GODlKWAoRRWbZQhy DPZuGML3SsG5AXEtCGMaNY3IWjJtMKIlFjHhOYniVA UhQROtfb0YXFEmMKIyRPGqRWTdDONnSRFwVYjeIYCoFNJeEoY8JKUzQAJxIZ7HNrXzUOZyEtZ0VVnbBQ RoYTHqyz7ZDVUtNBInVOj1JmHzANUoFRYtWCokUQNuBQOhKKF2CEEmYGXpKO5GHdJkCUDlAvLeNVbsFB OfDTTevi4AOIEkKSZaXlb5ExZxXSHmFMHfPPkuWRJs QMBdEER1QYLbULRyCM1ZWnCnNVItTkYkFqLnPRZyCPIoae7JdGXcyHtbco8CKPrCHv6RiBeuRYPoTWdf Ob6gbKGzGSTdLOWAAy5MjbOcCEByFURQDLdxXCSbQSDmNHN4CPM7Khr4BKVvAJIoUTeoYKBuBcJmRXx0 KGe1MhU9LeE6SOw9XxjmHuonWlQuWtBcN4WoMVSaFm F4GeL8SBi+QW0sJBt+Nx0Re5NmzqA7tfMgADviEUB3GF2NRHSSM1JNLo== ID Date Data Source [id number] 06/13/2021 10:40:27 AM EDT [facility] Name Value Range Interpretation Code Description Data Arabella rce(s) Supporting Document(s) Perioperative Nursing Note [facility] VZJUJg6nZfMVKmRl49/LRPovFUYxd4BwIAkkAHa7MEmwBIIzH8TeQVQ8hY5bRMI4IZiWQgWlYcIbQZM1 lbm [file] PVYtXcT7CKtqPHCsHCK5B3NdZlNpKf4eARFKJf5+LEliwNYngJlkYNGUNfVwLKAwLMooPHTSMw9R ID Date Data Source [id number] 06/13/2021 10:36:35 AM EDT [facility] Name Value Range Interpretation Code Description Data Arbaella rce(s) Supporting Document(s) Anesthesia Preprocedure Evaluation [facility] OSNVBi8nQyHBDhCy60/IOEfrROHfs8IzRKjgAUg0OFeoKFBeJ5ZdFXQ4pD8bHQY0MAzONlYyHwYuRSE9 lbm [file] RzKIO6LmAbLSOrDLEuBIVsHqaqTtQuKE1TTl1WRxD3EFE4zZDhPl3ZBiHcCFYLFhSmDL7ZVAr= ID Date Data Source [id number] 06/13/2021 05:08:12 AM EDT [facility] Name Value Range Interpretation Code Description Data Arabella rce(s) Supporting Document(s) Nursing Note [facility] HXMPXx4aGbWBBiOj21/MUJkiLSPkf3XdOPvbZRo6IYyxZQRbC5RsCIH4bX2gFSX9JOuGWaJiNzRoNJW7 lbm [file] SXz0Ef4AQQRBD2XHSt== ID Date Data Source [id number] 06/12/2021 06:38:56 PM EDT [facility] Name Value Range Interpretation Code Description Data Arabella rce(s) Supporting Document(s) Nursing Note [facility] DNKWRl5rInNFQkHb00/TGIwaTWIvy4FdBJdmGZr2ZKssBWEuW8WcIWY6sM9fTAR4AGqKFlEaOpLdDRX6 lbm [file] RhPCWxBuAaYZb0TFyaDWp5LIL5ON4tFXCNWp4+GFjbtKLuwDadAXSYNnPaWATdOZroLSLBYc6Y ID Date Data Source [id number] 06/12/2021 07:45:00 PM EDT [facility] Name Value Range Interpretation Code Description Data Arabella rce(s) Supporting Document(s) WBC 4.21 x1000/ul 4.80-10.00 Below low normal [facility] RBC 5.04 x1Mil/ul 4.20-5.40 Normal (applies to non-numeric re sults) [facility] Hemoglobin 13.8 g/dl 12.0-16.0 Normal (applies to non-numeric resul ts) [facility] Hematocrit 44.9 % 37.0-47.0 Normal (applies to non-numeric resul ts) [facility] MCV 89.1 fL 81.0-99.0 Normal (applies to non-numeric resul ts) [facility] MCH 27.4 pg 27.0-31.0 Normal (applies to non-numeric resul ts) [facility] MCHC 30.7 g/dl 32.2-37.0 Below low normal [facility] RDW 16.8 % 11.5-14.5 Above high normal [facility] Platelet Count 167 x1000/ul 130-400 Normal (applies to non-numeric results) [facility] MPV 10.0 fL 9.4-12.4 Normal (applies to non-numeric resul ts) [facility] Nucleated RBCs 0.00 % 0.00-0.20 Normal (applies to non-numeric r esults) [facility] Abs. Nucleated RBCs 0.00 x1000/ul 0.00-0.02 Normal (appl ies to non-numeric results) [facility] The above 12 analytes were performed by [facility] [id number], ,[place] [address] ID Date Data Source [id number] 06/12/2021 07:29:00 PM EDT [facility] Name Value Range Interpretation Code Description Data Arabella rce(s) Supporting Document(s) AST 30 IU/L 15-37 Normal (applies to non-numeric resul ts) [facility] Sulfasalazine and sulfapyridine have the potential to falsely depressAspartate Aminotransferase results. Baseline values before medication administration are recommended. ALT 31 IU/L 13-56 Normal (applies to non-numeric resul ts) [facility] Sulfasalazine and sulfapyridine have the potential to falsely depressAlanine Aminotransferase results. Baseline values before medication administration are recommended. Alkaline Phosphatase 53 mIU/ml 50-136 Normal (applies to non-num madiha results) [facility] Total Bilirubin 1.20 mg/dl 0.20-1.00 Above high normal [facility] Blood Urea Nitrogen 9 mg/dl 7-18 Normal (applies to non-nume ny results) [facility] Creatinine 0.60 mg/dl 0.51-0.95 Normal (applies to non-numeric resul ts) [facility] N-Acetylcysteine (NAC) and Metamizole em ve the potential to falselydepress Creatinine results. Baseline values before medication adminstration are recommended. Patients undergoing treatment with phenindione will have falselydepressed results. Patients on phenindione therapy should be tested with an alternativeCREA method.Toxic levels of acetaminophen may lead to falsely depressed results forpatient samples. Glomerular Filtration Rate >90.00 mL/min/1.73m2 [facility] GFR Reference Ranges:Normal Function or [...] of Health and the National KidneyFoundation. The Elsie method used in calculating this result is traceable to IDCO standards. Glucose 103 mg/dl 70-110 Normal (applies to non-numeric resul ts) [facility] Sulfasalazine has the potential to false ly depress Glucose results. Sulfapyridine has the potential to falsely elevate Glucose results. Baseline values before medication administration are recommended. Calcium 7.9 mg/dl 8.5-10.1 Below low normal [facility] Total Protein 6.3 g/dl 6.4-8.2 Below low normal [facility] Albumin 3.0 g/dl 3.4-5.0 Below low normal [facility] Sodium 138 mEq/L 136-145 Normal (applies to non-numeric resul ts) [facility] Potassium 4.5 mEq/L 3.5-5.1 Normal (applies to non-numeric resul ts) [facility] Chloride 109.0 mEq/L 98.0-107.0 Above high normal [facility] Anion Gap 9.4 [facility] Carbon Dioxide 24.1 mMol/L 21.0-32.0 Normal (applies to non-numeric results) [facility] The above 16 analytes were performed by [facility] [id number],[id number],[place] [id number] ID Date Data Source [id number] 06/12/2021 05:03:08 PM EDT [facility] Name Value Range Interpretation Code Description Data Arabella rce(s) Supporting Document(s) H&P [facility] AYDLHa5zJlMMSmNf95/ASTtrIDAvc9IuJSyuSTt5JWsfASOjU0JaZZF9mR6bANO4SFeZPmBaLgDxUVB4 lbm [file] AgICAgICAgICAgICAgICAgICAgICAgICAgICAgICAgICAgICAgICAgICAgICAgICAgICAgICAgICAgIC AgICAgICAgICAgICANCiAgICAgICAgICAgICAgICAgICAgICAgICAgICAgICAgICAgICAgICAgICAgIC AgICAgICAgICAgICAgICAgICAgICAgICAgICAgICAg ICAgICAgICAgICAgICAgICAgICAgICANCiAgICAgICAgICAgICAgICAgICAgICAgICAgICAgICAgICAg ICAgICAgICAgICAgICAgICAgICAgICAgICAgICAgICAgICAgICAgICAgICAgICAgICAgICAgICAgICAg ICAgICANCiAgICAgICAgICAgICAgICAgICAgICAgIC AgICAgICAgICAgICAgICAgICAgICAgICAgICAgICAgICAgICAgICAgICAgICAgICAgICAgICAgICAgIC AgICAgICAgICAgICAgICANCiAgICAgICAgICAgICAgICAgICAgICAgICAgICAgICAgICAgICAgICAgIC AgICAgICAgICAgICAgICAgICAgICAgICAgICAgICAg ICAgICAgICAgICAgICAgICAgICAgICAgICANCiAgICAgICAgICAgICAgICAgICAgICAgICAgICAgICAg ICAgICAgICAgICAgICAgICAgICAgICAgICAgICAgICAgICAgICAgICAgICAgICAgICAgICAgICAgICAg ICAgICAgICANCiAgICAgICAgICAgICAgICAgICAgIC AgICAgICAgICAgICAgICAgICAgICAgICAgICAgICAgICAgICAgICAgICAgICAgICAgICAgICAgICAgIC AgICAgICAgICAgICAgICAgICANCiAgICAgICAgICAgICAgICAgICAgICAgICAgICAgICAgICAgICAgIC AgICAgICAgICAgICAgICAgICAgICAgICAgICAgICAg ICAgICAgICAgICAgICAgICAgICAgICAgICAgICANCiAgICAgICAgICAgICAgICAgICAgICAgICAgICAg ICAgICAgICAgICAgICAgICAgICAgICAgICAgICAgICAgICAgICAgICAgICAgICAgICAgICAgICAgICAg ICAgICAgICAgICANCiAgICAgICAgICAgICAgICAgIC AgICAgICAgICAgICAgICAgICAgICAgICAgICAgICAgICAgICAgICAgICAgICAgICAgICAgICAgICAgIC AgICAgICAgICAgICAgICAgICAgICANCjw/aCLdG5mlcNBrlsW2I3fwFn1PFu5BYZ8hm1AuTWRgLEyrfp GlYpdMYiNbTFRgHnrBSuo7CKzqNN2CwKAcU3RfD5Hl GYsgOR4MYVMhDCQroLLoCLTeXDUfTzN8LJBeTLchMO9CpNRzRCcbFFIcZIOpXlVyZPSuQBJiRUIxBZSr NTSXKY5CXzKsM7HpdQ17WZHNUs1+KXrqdtSkHavVZnE3PFIfa0TyBOx8OW9BXFDqIanbg7IjDBJnTINR OEjjEJ1PFTN7TKWlFWSbWk5VNJVsS250egDuBY6WAs 7VWpTcSH5pjl0FUIGkBCEyHgfBFpv8UHujXX3GyEGkELdMLxHlKujvR6yrkJqqvOSVVYxuYUCgusseSK ZcOVUjILByMB9fAEDqUDWiQkW3OHHKGY0ZROXyYBYbdAGtBPGuDCOKRP5VDOisEXW7VcyynxNssOYwFB ysJF0LGWAauxOeSdkqBNZUNTj+Ef2ZFM8vs8HlOSn4 NWJfRU1gxw8FKAgKBnFiH0A2wLNwA7P5XUjaCs5WTGHhFASiWvoeUCDVBCfyEJ2CSU4tpoM6AT1YeJUd ARCpNFWzaYMcTHm1N03igOSdWHilMA5USKL+Mau+Hx6EXOZpHPOgFOAsNqNhOIHXXkOxY7RmZ1IWa2Ea N3SmPK08kPjvfvFaSAbzIT9JXH2vWMHkFIMOBW4GcC OsyD4lsgNrLBApNAWKVxUnG52fhFAvRAKsJYK8LQYbNn3EUWVjB6ScomClzTctnrIaQRHuQMNMVE8AHP jfqlIwyYZyvYztTW90nJctDU8KTt9QGlDkHL2luw5JhWGyEi5UNHT8Dw9SREZoADNrRGKlZBE5CCIzXo RdRAdzRTOaKKMsKHQ1ZFGhWNSlQK0AFuTgMWGfUSK1 YDFoNXFnPGZhyc7FAVLmQCY1DxXwQjQoLRBfOYZlOShzWQHlWJWfLRL1NWHgYKUrXU4PPbDzONZrESP5 XckuOTVhBQEodd2LKSTcSQGmUtPyHyAfXOVlQMGeCErdQVVtZJJ5AgQfCPUvQMCsNU5BJhUvNEZyHLL5 MTTfCJMkYOTfen9CAESgHBZnRIX4ShEtWATrQOIqUB hyFNTxFEB4Aqf4PFEoUZOoBR6WMpIgIQHdJXDoEXCfQQJfQTGsef8BVHBkORGrJTHpOJTwAEOgNOOdGI xnDDZsRUTrFqJ7EUHuPPCyGM5WIbOeYHHcIYL6UiScIDJyIOWmos6VJBPpOSPgRXe1AEHzKKBhURYtUG xlSSZnGOVvVtX8PMNoUNJuIG0NDrWfOAJfQXR3XJDd CDKgJCXmjq2NPIBdWDVuQiT0XRPeEUGfDSOeDBsuYEWrZYE3TNI1KTFkVEDmNT5LTmSfQEXqKhJ1ZuIv JFHaKORuvl2YNTAmRQKdHOc3YzAcJPGjTAIbYYdwZNEyLSM6NbGbZZOeXDCbFJ3JUgFtRKNzEaStJQrv JXOpUEXjlu5SUJRuALMeXqRyGwPpPDThZGDlDPrrHN TlRZO2AYseJHKuOVOhAL0QAmGkAPLrBuv9LvZiJKTcQKJvbe8ESJFrGQNvDYSiDcCeCALwZRThNNnmLY MxFAZ3Lvv7LTOkAGCzWJ3YDbHiWTHtDdg8CaQgOQVqKRHtpa4SWAXdWBN7CeJ3TGXmYEIeROBsCMyrNJ BkHKGlTcJzRTCvHQUjUI4CSpKgWJEfJGI6HnXuOTPa PCUtcj3HCCQwFQP6FqI2KfMtDKEvOPUnMHwjUFPyAGXuBiV9UNIkEWQuQB3JLrOjHQYoSNTnDIMvFYEc TVBljb0WOWLmZJZ5TCG0MQUsFHMpUEBjFGpmSOVvFRI4IEB9PGHpJBIqMN9DIrDjRZMhKLA3IQPtJVAc GCYgrd5EMHJuEIZ9IiZ3XZZvVGXxDNYqWZdkEPPdMA F0VKIcRMMhSORaLG7HWlOdYHHiFGK9UlByWLSdGYKdch1OqLZynLitfk9AOEnRGe8KpHcaUUNwMHtnEs 6aoAF8DMMyJXXEPc5NwrOsMSVhOEBIXAfjSOXxMCX1TIVsExLtMQGqVOU9ImJ4FCI4KYGyWGKwDELsI1 N5VfB1BlLuNvHqMJQjBIG8CSGmLclkPbC8WRR2UAYs MTBjYjQ+WQ3jBPi+Mu4Ys0XfwmV7mcWqWPd1ZzdwKO5QXWDBE4VRTb== ID Date Data Source [id number] 06/12/2021 04:02:17 PM EDT [facility] Name Value Range Interpretation Code Description Data Arabella rce(s) Supporting Document(s) Progress Notes [facility] CMVNQs3jZvMXRyXr52/YGZujMSVrn1KvVVydSVb6FRkpLBGqY1MhISC6kC7hVFO5ZWkGZbHxFkPwBVJ6 lbm [file] [employer] [place]/Lf/wI14+sq7061oosmDTzMqPlcCR7saIeToocjykzXGCyGS2tm9UylPQiXLZ5QLO7tt6VmNTSjWQ [file] JCK4CRWp== ID Date Data Source [id number] 06/12/2021 01:37:55 PM EDT [facility] Name Value Range Interpretation Code Description Data Arabella rce(s) Supporting Document(s) Care Plan [facility] WNHLIe1lBtWPSsHv81/MEAlgQIHic3CwAUfwQEx5XAbkTDBjS7GiTLK3vL3xJWY3GDnWMvIgMbXlBID3 lbm [file] ICAgICAgICAgICAgICAgICAgICAgICAgICAgICAgIC AgICAgICAgICAgICAgICAgICAgICAgICAgICAgICAgICAgICAgICANCiAgICAgICAgICAgICAgICAgIC AgICAgICAgICAgICAgICAgICAgICAgICAgICAgICAgICAgICAgICAgICAgICAgICAgICAgICAgICAgIC AgICAgICAgICAgICAgICAgICAgICANCiAgICAgICAg ICAgICAgICAgICAgICAgICAgICAgICAgICAgICAgICAgICAgICAgICAgICAgICAgICAgICAgICAgICAg ICAgICAgICAgICAgICAgICAgICAgICAgICAgICAgICANCiAgICAgICAgICAgICAgICAgICAgICAgICAg ICAgICAgICAgICAgICAgICAgICAgICAgICAgICAgIC AgICAgICAgICAgICAgICAgICAgICAgICAgICAgICAgICAgICAgICAgICANCiAgICAgICAgICAgICAgIC AgICAgICAgICAgICAgICAgICAgICAgICAgICAgICAgICAgICAgICAgICAgICAgICAgICAgICAgICAgIC AgICAgICAgICAgICAgICAgICAgICAgICANCiAgICAg ICAgICAgICAgICAgICAgICAgICAgICAgICAgICAgICAgICAgICAgICAgICAgICAgICAgICAgICAgICAg ICAgICAgICAgICAgICAgICAgICAgICAgICAgICAgICAgICANCiAgICAgICAgICAgICAgICAgICAgICAg ICAgICAgICAgICAgICAgICAgICAgICAgICAgICAgIC AgICAgICAgICAgICAgICAgICAgICAgICAgICAgICAgICAgICAgICAgICAgICANCiAgICAgICAgICAgIC AgICAgICAgICAgICAgICAgICAgICAgICAgICAgICAgICAgICAgICAgICAgICAgICAgICAgICAgICAgIC AgICAgICAgICAgICAgICAgICAgICAgICAgICANCiAg ICAgICAgICAgICAgICAgICAgICAgICAgICAgICAgICAgICAgICAgICAgICAgICAgICAgICAgICAgICAg ICAgICAgICAgICAgICAgICAgICAgICAgICAgICAgICAgICAgICANCiAgICAgICAgICAgICAgICAgICAg ICAgICAgICAgICAgICAgICAgICAgICAgICAgICAgIC AgICAgICAgICAgICAgICAgICAgICAgICAgICAgICAgICAgICAgICAgICAgICAgICANCjw/mAJnS9guoX VnioT8N3igKh7FTw8FAH2cc2CfQDBcEVdzotZpQvfPGcQoENZzBaeQZmp2GUtrPY5ZlMSpM8YsK8NzRE twSK3VYASoXZLfhVDtOWSbGMWqIyQ4ZTDoCKrvIK2A jHHdJMszHQKaHTLxVyTiVMHcZV7HHKXxC140aiWkQp6YAk3GMtYiKL9zap2MNrjrAIKyAigOSdr7QOma MT8ZiKZsbIIiFJUaOEMBVyErW1vul3QfJcesNHYVVWiuUD7Bl4NxgFZiGRf+Dh8EOJ0nb5SfOEkbSZVk DL4zdu6KHZlZUrCjU5NfsLwmLKStdjRkLKwsfeXeoE SADSQlLFKgu34qekmlFu0jOHAxYQHgKR4nVUHmQBUtEtJ1YJONYH8RWPJgMOMiiPVaWYQfDNWVDE3UFP krKNL9UhxzdpGphEKuGGflAG5JBNXjreTmKfasKQOZYOf+Ka7OPT2oo7VnFRofDKGhIT8cku2LBShJKt HhI6G7cTPwS5Z1DNzuZq4TMXEtAEKdAoBoITZUUDjq BX1WPP2jdmT8EG9KwVLwTIEfIDKzbZCdXAk2F57kbDCgNFrqIP9NAMV+Mau+Pi7MLMNsFGDyMDEwFsZz THVVLbNnM1VvF0MPz4YrW3AnOJ44zRkiufIfELhsGZ2CFW8rUKQtQXHYYZ8DiSDfqG8ittCyJcDgDHWL StDmF73abCNaEEInHME0OSFoIt5MQLNgG0CvkfLdlM iefjUtWQJpMJHKAV8LZSjtasRpaUEgaOyqAJ22oNvtLK4HVm9QZhXoAL5lnh5WpKByDn9SFZGaMN7NXO RnLKVqJRCeOMZ2WQCdAzMdIFdjPSMdRVMpCJF6IWCzFCAzPA3LFeJaPTYrQlM6UqHzNJLvIIIipp6KOG CoJYGgUkB0EKPyPARgKTBdBQvyBNEiOULrRWJ6GRIo WUPdAM6XZpBwUMOsIRUlDRAaGSWaOBHffm4OMOCiZKBjSeF4MSRrPYWlOYJxXZmuFUQeRWSuNEM0RVMq LDJeDJ1YFfDhQESvDDVnDaOlNVOcINFuqt1BWPCcMRIxOKU6JXJoPTQmWEDnCZllHHLhJCA2EmsxZRBt BPNzKK5EAhObQIQzCOT1QbTzZHUrRZOckt6MIHZwSR VtXMBcNoMmGQPkPABaCTtjOZJuXDR8LoBjKELgOVUuBE1HXxObLNVnCVC9CCXsWNYjHFJkdz7APWHeRP KmYOP8ODLeNNIcNPXlVSnlQSYiGAR1STnbIGMqGYOdPD0QJuVyXPWiTBh6NWCxDJIeZRVech3NNJYgKT XkXZIiEYDaNNLvEGPyPXpiNKKnDOJ1CAx7OIZgCPZy UO5PXrJkSICiBjXoMRjuYOQdEMKyvn3WGKYiDVUoQSJxQfHnVSBxIGTlJUrmIWZeXSJaAAOzHZGdIMKj QD3CRiWgHZPaMnM1GMKrXJXtYJFvyl9UVISwMSPtTBHbLWOhPAVxGBXrORjhUTYyCRNxLWZoMWNtKOZo MA6TDfZwJVUpOaCwTeCzCGHvNLAwco7LYVWmRLOnDx U7LFIeLVSbNBAeIBnzHWOtPEHyImYsEFArQUFsWN5BMsAmYEMmYdR5HLUcVLDgNVPjur2MuSVepGcbbx 3WOOnGDd9VjCfcHLNyTCiiWb5siTDeCJQpIPTKBd9NobIgSIUcNMNJAEefBRWkUXD2LdNpDla5VDQkGO T4AoSmJGPzXHNwP0ErGFK8AfurAdA9FyCtDHFoXqR4 KNCqKCjzMkInAmMnCwAtJvJ9WwP8XGH+PQ6bGRv+Sm8Cl0FyyuV6syTuAXwmOQCxNJ3TQWJCW3IEUl== ID Date Data Source [id number] 06/12/2021 07:13:03 AM EDT [facility] Name Value Range Interpretation Code Description Data Arabella rce(s) Supporting Document(s) Nursing Note [facility] ZNNSTj1iRtCOUpBf87/VHTmaVKVor0HvVRljRLs5UUgdHYXdD1VdJHL6oU8kLLV1WShUCzEdQkXtIWZ8 lbm [file] G2MGAaHHciKuXoQPKyJGGpMeVzOL8BOi9HDhS0BET0eBRhGn9NCjOcPFjIUuQaXY0MGOp= ID Date Data Source [id number] 06/14/2021 08:35:00 AM EDT [facility] Name Value Range Interpretation Code Description Data Arabella rce(s) Supporting Document(s) Anabasine 23 ng/mL <2.0 Above high normal [facility] ADDITIONAL INFORMATIO N This test was developed and its performance characteristicsdetermined by [facility] in a manner consistent with CLIArequirements. This test has not been cleared or approved bythe U.S. Food and Drug Administration.Test Performed by:[address] [id number] Director: Rashawn Vides M.D. Ph.D.; CLIA# [id number] Cotinine >1200 ng/mL <5.0 Above high normal [facility] Nicotine 286 ng/mL <5.0 Above high normal [facility] Nornicotine >120 ng/mL <2.0 Above high normal [facility] The above 4 analytes were performed by [employer] ([id number]) ID Date Data Source [id number] 06/11/2021 09:02:00 PM EDT [facility] Name Value Range Interpretation Code Description Data Arabella rce(s) Supporting Document(s) SARS coronavirus 2 RNA [Presence] in Res piratory specimen by MELINDA with probe detection NEGATIVE [facility] This lab was ordered by [facility] a nd reported by [facility]. ID Date Data Source [id number] 06/02/2021 01:34:04 PM EDT [facility] Name Value Range Interpretation Code Description Data Arabella rce(s) Supporting Document(s) Consults [facility] AFXQOk5aAwPAEzAx75/LZMewZGPee7AqZGcxMRl6MQtfNUGjX0FvLXA0rW5oWBC0SRvJKaYcMbGqHIA9 lbm ZmLtqAIqAfPWXtGfrJEkRyYOwnHkctcZYrUY2CiKJ2VOKzO00gGGAoMPJgK1XpQMAhSuo+Yp0EWSNuxY SbBI4YKetS4L1FmncDOo0fUx6zJqhaGHU1w5/lKWeMJZoeAOs39ZbLaUBHQmLxDiRG/Edl9xCxq8XG18 OzoKTEPohTO+dh8yi0oOCd/vtdHaVxEARq+//Dn2lu 1NWd+ocg9G0aiX852z1vhjfYICXWghSB1p4DI/7LVO8jMzp/tN4NvsUbiYuTvMfYjBqzYjVi4SL53oM+ aj0O77KPY8CaAnDvw4TY7AAT1lMwvrhT9F6gYt0bRe7Lu/ogh4LlL2UbsHBOAFoQ94gaelIYlmmk8YLk 7kd47FbRaeDqF9rq/sSsOV2seD4WLNJr5pyIduT7od NAPOLEON/eEbKyPq1osGPt9zOdBOyRci6nuQRGDpTD4gmYgzMHWNgu6F6BQz+i57vN6lJjVPSX5jN78CFOmbJ [file] wxQCNYWeI4CuusGTjmYGGLDg3W ID Date Data Source [id number] 05/05/2021 06:37:00 PM EDT [facility] Patient: SIENNA FOSTER Observation Re [facility].VisitID: [id number] [place] [address] [phone], FRegistration Date/Time: 04/24/2021 22:55 Weight:68.9 kg (S). [...] rce(s) Supporting Document(s) ID Date Data Source [id number] 05/04/2021 04:34:32 PM EDT [facility] Name Value Range Interpretation Code Description Data Arabella rce(s) Supporting Document(s) Discharge Summary [facility] KWKYOy7zAbDATlHj51/CNNfdUGBko5SjQEvwJKk8DHufUJIhH5BgFAA8nS3uDSL4NCmBDsXrPaHeMJG9 [facility] [file] QMVgL5QtES3mPUZCYu4+QVcerJJerYycPSAWCmUrUZU0JHplVKEMPy4H ID Date Data Source [id number] 05/04/2021 03:25:37 PM EDT [facility] Name Value Range Interpretation Code Description Data Arabella rce(s) Supporting Document(s) Nursing Note [facility] FAATJw1jRsUBHvNg73/ZUWpjYYLcy0GzBTlhFVh4KQvfUGRqJ1BcCWV8fN5zITR5YClIEnZoKhJnOXB1 lbm [file] T0YNCg== ID Date Data Source [id number] 05/04/2021 12:56:29 PM EDT [facility] Name Value Range Interpretation Code Description Data Arabella rce(s) Supporting Document(s) Care Plan [facility] QOLFNl3qKlJIJoHn73/YOVvgRMTkw7TqQWwtTGw3TOhcERYaR2ErGIE2bU8vBOP7GToHRfYuXoFsGSS2 lbm [file] AgJhRqHjtiE7ZnSciiAbF6GhLdXW9XTt8KYdD7QJQ8nGFbRr1CCyT9OXFXQcFvBI1JCPq= ID Date Data Source [id number] 05/04/2021 07:13:56 AM EDT [facility] Name Value Range Interpretation Code Description Data Arabella rce(s) Supporting Document(s) Nursing Note [facility] GCGFUx0dOtTYDcDa19/GCUrzPHFza5JiZEtwHMl0CCthCZPfO9VlBCE7pX9xBSE0XMhJGtQdThKaEDX3 lbm [file] IdWsMbNW6URp4COjO8TTV6xICfJr6DRuHeHWWZJxPsOP4FHVl= ID Date Data Source [id number] 05/04/2021 05:39:00 AM EDT [facility] Name Value Range Interpretation Code Description Data Arabella rce(s) Supporting Document(s) Blood Urea Nitrogen 15 mg/dl 7-18 Normal (applies to non-nume ny results) [facility] Creatinine 0.78 mg/dl 0.51-0.95 Normal (applies to non-numeric resul ts) [facility] N-Acetylcysteine (NAC) and Metamizole em ve the potential to falselydepress Creatinine results. Baseline values before medication adminstration are recommended. Patients undergoing treatment with phenindione will have falselydepressed results. Patients on phenindione therapy should be tested with an alternativeCREA method.Toxic levels of acetaminophen may lead to falsely depressed results forpatient samples. Glomerular Filtration Rate 83.00 mL/min/1.73m2 [facility] GFR Reference Ranges:Normal Function or [...] of Health and the National KidneyFoundation. The Elsie method used in calculating this result is traceable to IDMS standards. Glucose 86 mg/dl 70-110 Normal (applies to non-numeric resul ts) [facility] Sulfasalazine has the potential to false ly depress Glucose results. Sulfapyridine has the potential to falsely elevate Glucose results. Baseline values before medication administration are recommended. Calcium 8.5 mg/dl 8.5-10.1 Normal (applies to non-numeric resul ts) [facility] Sodium 137 mEq/L 136-145 Normal (applies to non-numeric resul ts) [facility] Potassium 3.7 mEq/L 3.5-5.1 Normal (applies to non-numeric resul ts) [facility] Chloride 109.0 mEq/L 98.0-107.0 Above high normal [facility] Anion Gap 9.7 [facility] Carbon Dioxide 22.0 mMol/L 21.0-32.0 Normal (applies to non-numeric results) [facility] The above 10 analytes were performed by [facility] [address], ,[place] [address] ID Date Data Source [id number] 05/04/2021 05:39:00 AM EDT [facility] Name Value Range Interpretation Code Description Data Arabella rce(s) Supporting Document(s) Magnesium 2.0 mg/dl 1.6-2.6 Normal (applies to non-numeric resul ts) [facility] The above 1 analytes were performed by [facility] [id number], ,[place] [address] ID Date Data Source [id number] 05/04/2021 05:18:00 AM EDT [facility] Name Value Range Interpretation Code Description Data Arabella rce(s) Supporting Document(s) WBC 5.61 x1000/ul 4.80-10.00 Normal (applies to non-numeric re sults) [facility] RBC 4.13 x1Mil/ul 4.20-5.40 Below low normal [facility] Hemoglobin 11.1 g/dl 12.0-16.0 Below low normal [facility] Hematocrit 34.4 % 37.0-47.0 Below low normal [facility] MCV 83.3 fL 81.0-99.0 Normal (applies to non-numeric resul ts) [facility] MCH 26.9 pg 27.0-31.0 Below low normal [facility] MCHC 32.3 g/dl 32.2-37.0 Normal (applies to non-numeric resul ts) [facility] RDW 14.6 % 11.5-14.5 Above high normal [facility] Platelet Count 235 x1000/ul 130-400 Normal (applies to non-numeric results) [facility] MPV 10.4 fL 9.4-12.4 Normal (applies to non-numeric resul ts) [facility] Neutrophils 51.3 % 40.0-74.0 Normal (applies to non-numeric resu lts) [facility] Lymphocytes 36.5 % 19.0-48.0 Normal (applies to non-numeric resu lts) [facility] Monocytes 9.3 % 3.4-9.0 Above high normal [facility] Eosinophils 2.0 % 0.0-7.0 Normal (applies to non-numeric resu lts) [facility] Basophils 0.7 % 0.0-2.0 Normal (applies to non-numeric resul ts) [facility] Immature Granulocytes 0.2 % 0.0-0.5 Normal (applies to non-nu meric results) [facility] Nucleated RBCs 0.00 % 0.00-0.20 Normal (applies to non-numeric r esults) [facility] Abs. Neutrophils 2.88 x1000/ul 1.92-8.31 Normal (applies to non-numeric results) [facility] Abs. Lymphocyte 2.05 x1000/ul 1.20-3.70 Normal (applies to non-n umeric results) [facility] Abs. Monocytes 0.52 x1000/ul 0.14-0.97 Normal (applies to non-nu meric results) [facility] Abs. Eosinophils 0.11 x1000/ul 0.00-0.76 Normal (applie s to non-numeric results) [facility] Abs. Basophils 0.04 x1000/ul 0.00-0.22 Normal (applies to non-n umeric results) [facility] Abs. Immature Gran. 0.01 x1000/ul 0.00-0.02 Normal (appl ies to non-numeric results) [facility] Abs. Nucleated RBCs 0.00 x1000/ul 0.00-0.02 Normal (appl ies to non-numeric results) [facility] The above 24 analytes were performed by [facility] [id number]man, ,[place] [address] ID Date Data Source [id number] 05/04/2021 01:18:34 AM EDT [facility] Name Value Range Interpretation Code Description Data Arabella rce(s) Supporting Document(s) Care Plan [facility] BCNTPd8mCtYJIyFe66/KHLkzTWDzd6JlEOqlJUz3QTsiEJNvM7RsPQJ5vY7sDWB0XCoQYrYqYhVsAZC1 lbm [file] CQpJA8815DYvpyIvkRe+bdTC4oyQRi7cfqTeV4LkHOUl7pL59Yy7d+5j84AsAV/CMM TECHNICIAN/rVtU4KjZ05THxW [file] ICAgICAgICAgICAgICAgICAgICAgICAgICAgICAgICAgICAgICAgICAgICAgICAgICAgICAgICAgICAg ICAgDQogICAgICAgICAgICAgICAgICAgICAgICAgIC AgICAgICAgICAgICAgICAgICAgICAgICAgICAgICAgICAgICAgICAgICAgICAgICAgICAgICAgICAgIC AgICAgICAgICAgICAgDQogICAgICAgICAgICAgICAgICAgICAgICAgICAgICAgICAgICAgICAgICAgIC AgICAgICAgICAgICAgICAgICAgICAgICAgICAgICAg ICAgICAgICAgICAgICAgICAgICAgICAgDQogICAgICAgICAgICAgICAgICAgICAgICAgICAgICAgICAg ICAgICAgICAgICAgICAgICAgICAgICAgICAgICAgICAgICAgICAgICAgICAgICAgICAgICAgICAgICAg ICAgICAgDQogICAgICAgICAgICAgICAgICAgICAgIC AgICAgICAgICAgICAgICAgICAgICAgICAgICAgICAgICAgICAgICAgICAgICAgICAgICAgICAgICAgIC AgICAgICAgICAgICAgICAgDQogICAgICAgICAgICAgICAgICAgICAgICAgICAgICAgICAgICAgICAgIC AgICAgICAgICAgICAgICAgICAgICAgICAgICAgICAg ICAgICAgICAgICAgICAgICAgICAgICAgICAgDQogICAgICAgICAgICAgICAgICAgICAgICAgICAgICAg ICAgICAgICAgICAgICAgICAgICAgICAgICAgICAgICAgICAgICAgICAgICAgICAgICAgICAgICAgICAg ICAgICAgICAgDQogICAgICAgICAgICAgICAgICAgIC AgICAgICAgICAgICAgICAgICAgICAgICAgICAgICAgICAgICAgICAgICAgICAgICAgICAgICAgICAgIC AgICAgICAgICAgICAgICAgICAgDQogICAgICAgICAgICAgICAgICAgICAgICAgICAgICAgICAgICAgIC AgICAgICAgICAgICAgICAgICAgICAgICAgICAgICAg ICAgICAgICAgICAgICAgICAgICAgICAgICAgICAgDQogICAgICAgICAgICAgICAgICAgICAgICAgICAg ICAgICAgICAgICAgICAgICAgICAgICAgICAgICAgICAgICAgICAgICAgICAgICAgICAgICAgICAgICAg SFCwUKUpWSRdSNDvCJx2S8epTZJtMAQeCV2gZDw4Ky 8+VOfWUrMgAOY3zmFiiU3THZ8ee2VaLAxcVCRqm2RgQNa8AF7CLAKrAXhrAX0RESogwo1KSWNbHLFyoK JRd3odXiGoYZB8GQPdVvkxVL9GNTRjV0nyupHtYSHfIOFVIO8CFxFwB3QnfW39TZOIZi2+DQplbmRvYm hUUpEpILDie3WrQIa5ZX8NDASiQsfqo4RjXaPlZLHX XClrGB1BSJP8UPMeDLRjHx5YECRnY003mzQiKP0IOd9OSlOhAQ1psx3QCiEyDTFwMoqNKvm2CEtiIW8P fEOqRCuSPUTjBGBdFR6zMxyhByH5ASqizQYlGsafw2EaK8qgHHVLLLJ0MLanXiZhPtTnWPJqZSjvDWME XEjJVpGzC2Qgd2IoJdM4CYToUbDfMBcdSEClBxH3EN 04gBafPK9JFQUjNOVaTJ02TOTmARKdDu3OHi0YHwKqOO0rct6HKiKgSOJaEcsUBox0PKihDY1CwYNpM7 KgfPUcb4tQIjXcQ9WIQUN3XQKdQm1JRMScHwBwVILvBHmmDX3kVQMuBRXYmNqijtP7GD4YFS2sacHyHT 1DCmJzKs8xOt8SVpHzK5MeS8MwZZQdTPOYTYiwTL7U XHmoCT2sXM5Nh7AGnINstQ1ygx5UAETgAJJcIguklm9FLeblR6G9qBqgFEYoFhGzRETIDNfhFF8GBVOg VKK2VJFdRUQaYAPAXqNqT03yMX6VL4Dod75lSaA8LRMyIxJwXMdlHG00iUskkaExzAJucDivGF3FBj2+ DQplbmRvYmoNCnhyZWYNCjAgMzMNCjAwMDAwMDAwMD WfIdC0ZjVxHs8XQZSnWLGkUKNaWjBsVBPzSRWsHTkdKSEeMKZzEAY8NMYfQLLyYO6GYxQoEGXrUXVzJE WeROZgNWSsai1XHZHxPNCeAJF4IhYfMLYlBFJmMDtjFDKnQTOpBAU3VUSxIJLtUG6RSeUaKLSjKVQbES RsWSUwTVDelm1MWNVqLCJqLUN7NMDbPBRnCIZpAVzv QGLlEAN9OdyaHIFbASAiAH7TEwYaIWQrDAX9MDwsCYZtDOLdpj7TJIRmQAJxLYDlFaUqATHhGCXcFRoo DNYiJJN8CnFfTGWwQPQfTT6XEnSqTDIeXIF7JPIvJREsHLCufi6PSDQvRFVsSIV6ICCpWAWsDQKjDYfn MIQnWUF4FWExNBTdDTFkNG7FWdFzFIPrZVb1YbsvJB DfVIYcbj6DEBXcZYAoTRgyGNJgLUDjZKXpKHdbXMOqHYZ2RNN4NINdCQAzQC7UGkMgIRDiPSx9AVzsPO YlDBIuaj4OUVVxLAUbWGJ4XJAgKBJaTYFzCTtmVSYjDOHgSvrgWXHpWAPqAY4WBsZvYWLoFyNmOmSaMN YpPVNvmf3TWEZhDRTnVQSvSQHnJVRyDSJnDXnwUZZa LQBbGdioCBHqFKPxUG9KJyAzYHZgElveYVHlPOIqAGYidn6XEGLyKSNwZENkQWBpURKmBSQhTWakTREl GRW5IUQ6FOUnYSCkAO7MOaUwSDAuUKMvHTcvSZHoTJGvvk9JVHAnEKO2ENHsIGRsRALbAQAtDDyuVDXc TDZpIPJcYAKxWSOhHN5XIqAaTCHoOYLqXSKgVXBzSV Nyty7TIOAcPWU9TrD5LpVlINCuSDCoJXvhXJQbINTvXmQ8BKZzCRVjUE2MYtCvKFgvFZVJMih4BGypT5 y8JPQpLk7DK1Whk9GoBiSmKZNWMTkgCI7gwvViWIVoXy1KM2zGEpc7BlNjBAE8YFQbRUOxNKYlK1WcKH TmQZKaHtQwVtbsJC0gZUu0YuA3Oix1UZA8RRByHoQp HBHhCNL7ZHYrDsIlGCN3ShYtZM5AHd1JWmE9KNG9yBJmAo8UHGM3HYSJGtQiOF4FOLl= ID Date Data Source [id number] 05/03/2021 04:14:39 PM EDT [facility] Name Value Range Interpretation Code Description Data Arabella rce(s) Supporting Document(s) Progress Notes [facility] EVEOPm1kWaIJRjSl62/BVQuwQEMpn3CdSTeeOYa0XOopRAOgB4NrKFB3cH2kMPT2GVtVKqDmToNqHQU1 lbm [file] ICAgICAgICAgICAgICAgICAgICAgICAgICAgICAgIC AgICAgICAgICAgICAgICAgICAgICAgICAgICAgICAgICAgICAgICAgICAgICAgICAgICAgICAgICAgIA 0KICAgICAgICAgICAgICAgICAgICAgICAgICAgICAgICAgICAgICAgICAgICAgICAgICAgICAgICAgIC AgICAgICAgICAgICAgICAgICAgICAgICAgICAgICAg KBBuBDNjRFEkYK3MHJNhSHMnOLNqSBDvCBNrRYUsRRPhVKCwWEHoUKYhGSFgWLAnGCPtRTDcQSPxQOHc HIWcWMPiWWTwFZDrGNKgEBWwTSFdWAFgCKJjDVJcTTVzAGYkIVIwIUMbEQNhLBLtYBWuNO1WPBYfEUFn ICAgICAgICAgICAgICAgICAgICAgICAgICAgICAgIC AgICAgICAgICAgICAgICAgICAgICAgICAgICAgICAgICAgICAgICAgICAgICAgICAgICAgICAgICAgIC GsXG4VUDMdQQLmSDAnSIWcDXFmNZYzAZIvFLLvMJRyLTWgIXAlYUVvMMNtJMZyTNBeNUXhHQZcUPXsRN AgICAgICAgICAgICAgICAgICAgICAgICAgICAgICAg PKMuLVYvIUWfVEDgXF6FPUTqZCRuQZNhAFGsNVEgTHIyQXJhJRMgVCMmWQTjZJSbYRGhZFHbBSCwJIIu UQBtCJTmIEEpNMNsBBFpSDCcCZWfGADaGHLuODDpDPHaSQFwAJKcQOIrWLFiUDAnKLDzOMNgKV7YWHMc ICAgICAgICAgICAgICAgICAgICAgICAgICAgICAgIC AgICAgICAgICAgICAgICAgICAgICAgICAgICAgICAgICAgICAgICAgICAgICAgICAgICAgICAgICAgIC MxTPMeLV7GWECsMYVyEZAsCQFmNCAgKKAoYVFuYLJgJUYyUICzJPIvHSCyICCyOGMzWFCiNTLlWDBjOI AgICAgICAgICAgICAgICAgICAgICAgICAgICAgICAg LVOpQLKqOPCmMFZvLYKfSF5ZRGFsCYBrZIWrHFFrAMJdMUKmQNXfQRJhECOzQYFuRZFyKBMfLSFmVYGi KDJmRIIpJGZoVOJyIFPaKJPaTQCpHLNfWORjIZLxKRLgPKVyCSBxVMDcZRXzKOPuLQRaHLCrOUFkIP1E OY50xQObs5G1ELReKN1ewak/Sb0ICWlihbVfaXWwEC 3HDzHlOV4kmx7BTrCwVO6laz3QBOoIScCdS5T7kUUoEUYvAVMWAsPkY48gABszPa06SChyEANePzVvHP f2Fp9UEdYeM3soWGCzOwA9TXXsHpH6DTGuCqP3EJUfDoEqKOWrHDFmZT0CSOPkP209fdKqWR6JSe0VTy TsOE4wvb9YQNCtXTClKwkVVpy6XKmiUO2WnKMnrZA0 RfHdCUFMZlQyE3tow7HxMCKuGEDYVEobNF4Ys1TteIZnLTq+Ic9CPC7ln7MkIMn0WmZaGV7fel3EGJlO ObNhP2SooPgsWGZuw9eiTVXpEM4xmYKvXGZ7DW6osrV6HCQnSPhwTR4HOPF4UVplAvBqEeBeFGUwSgg6 HLOPAAqXUvIoC6Pkc0UaKbD7DEEwAcOsAEvqHYAhDe Q7YM74aHheRZ9CNZGqSIEcJN25MIHsVAOpXo2CRx1DDzSqYY6uwl1ZTNWlULYvOhtDDme4KBloEU3CfC XcU9YdxPDje6wFUtXqV4THSSPfLKNqLr1RXLUsEmJqBXWuXUuwVF8qIAYhXGRIoHqlzaP7VH9MXY4sig FbVG2SDuRcBs9pWx1GRjPkU2CbN7LnNTJxATKADAzp IV5CWKuwYC5fWW8Xc5PUeBTkrU2oix9VOKZvGLVoTrywao0LYwlyM0Z3oIpfJOXvGRDrGEXADOkfFI6L TAZxCMU8HIW8ECFgZLDHDmEsX64wEX9ZF0Cij21mAlD4IYOcPcQfKAzxUT68wVrtdgVdbIMwmEwrUD2S Cj4+DQplbmRvYmoNCnhyZWYNCjAgNDUNCjAwMDAwMD FaLRCjJlO7WwBgWp5FDRBtFQKzDFKuYuPuQIQsPSYjDBjrGITfZTC4WhE6JMRiOGRfUY8CTaWjLKLzHG inVvpkSZLdYPJaiv6ABFNcLXBvNVY9VwBpZNYzJGCsRUfbNKOoKEDpZCW3LDIoTFJzKX4DWkGsKZWdKZ EcOOMhKXFfBJYhmj3LWFIcDJEyIMfrMCLyVFRfVKMn SMarIGEkYIJ0NHV8TCEcOHSoAQ4TWeYhHCJeQKI7WAebSZLoEDYgke3BOMQmXIYpWlJuRBAaUTZwRLIo BHyjFKDhAZR5KgfeDITtQLKuOV2IEbRyLTXiOIb2NoDtJSTzNMGspg9CHGIxFJEbBKjxGFMcQGPxGNTt FDufXDJbRLZsMKR2MYKeERCqYL0JWwFyPRVcDUUkRs TdKMWbBQRgoc2KYFHmYHLgNgJ0XCKvSMAuJWSrPGaoLHLmYVJfVmieRQYkYOIxOI4HBjGwLMAaSVK1Gk RbNLRzQMRjuh2RIZZnIWMaODgsAIDxKVRoAHHoMXkaMODtAFX0YbOlGVHaKFXnDK3HVhYfQBDmEeM0Yp sjVJFcWSMxgw3CNUVbRFLwBGK4EABwBOEpPSUoUCmp RXZnQUI8QXO1XYKkEKZyOD3TRsCdUAYlUlW1PgzxGOCmCDZscb0JZBBsKRRpBns4WVDbKVZdIBBaXLaa IOBqQTU4MUZ4VXNqJPHtKE0QYdWjMXAxZyncFvpiAKLyIQKrdt8KYAOvNGSvCXM5QJFyOMZdWINoJFap CEVyJXM0BSL5YFGnEYMmME4WQcRwWCXkJejpKidbKM UsAIGkln8DODRkPEKgQSJ2KNXhMRVdLTOsSXwtBKNuGXV0GdS8LWUpZWDdCR9TUdCtUZOxEBNsHAjlZY DnQIZdfg2POCNiQYV1AzD2EnFuZFKyRULzOJbdPKJwCIOlURguFMYwATVqLS2LYgVvNJZpZTJ9ClXqVT AnVUAxvw7SJEUkDQQ1Xjg1BTNzAJBmPYRbBBioCZRd BHE9ROOjMPIoITXpJV6BTrCpCCUeEZZxGrDkURZzABUech1JRQFfNCI9MTEmYxTzDMIuVFDqFSznYXWh MYH7Ozk5RELvAZIdCB6CAgRsBEYuBLbkSQOcVQPwGLPhkb4NPBHqCBP3OdAhLESzWUVsCAUkZAhcZXEv GQL4VAPqIRIsVUMtLP6UEeMwIQyqEQIZEnj0MFwbM3 y0PLR4FK1TP8Rat7TlQIMhXPAWJHicFR7xajZhRGJtXn2QO0cHLciaVQXvYwZkJNOgZuHyVDGnVFMeQ9 XgQxY5VhRoSCOhAo2lTBThL6OpQVSdOUG7KRAbQrK1YPOdPUHwWyheVgTmUWImSbSzRH6NJi5UNiJ3PL P2gMPlSz3JDKv9HUBRBkMwUU9AHTf= ID Date Data Source [id number] 05/03/2021 03:38:36 PM EDT [facility] Name Value Range Interpretation Code Description Data Arabella rce(s) Supporting Document(s) Progress Notes [facility] PBMAKb4vUpRKBzTz81/OWQksSFTmj0NsTPsmURq4AAczJPMcN3XkUDW1rM9iEND8NLyLSwRuKgQtTWS5 lbm SzXveXKhJbNLLkVbjLEwJoOWgrLmqluVRzIU4MuLW1LEHkB61pZGZsEIErW5NeUDE1SQc+Ku9ONFNemN KpVF9QChmM7IukA+P17kyZ8e/5fGNI1Bk0z28kNALw4bcVGqLvdawuTae0YL88arvIj1D//heE8qAG2f MhU2vqWIOPFRfrv5tJMRLEwGpiW1ZGXXXPvTao/CpT [file] XlAgCdAFkiEGVJFw7B ID Date Data Source [id number] 05/03/2021 11:35:45 AM EDT [facility] Name Value Range Interpretation Code Description Data Arabella rce(s) Supporting Document(s) Care Plan [facility] LHJTDj8pTzMGPdEn72/QTHiqLWIzx3JhWUuiWYe1MWahCJWzZ7PdNNL2fW9aRDV1ODkVBlCbElGqGCH8 lbm [file] DQo= ID Date Data Source [id number] 05/03/2021 10:15:39 AM EDT [facility] Name Value Range Interpretation Code Description Data Arabella rce(s) Supporting Document(s) Nursing Note [facility] DMRBVz8bInYROzQv19/IKSjnBBEja4GpXYqdUNx6TSxuYKFdD3MkWVX0vY7kALQ1DLfDBrKbKdEwSPT8 lbm [file] HhB8ZwErSJ4LFy9ZTzB4ADZ1dJLoMh1ODgV0SULHMhSoKF1LTAw= ID Date Data Source [id number] 05/03/2021 09:38:41 AM EDT [facility] Name Value Range Interpretation Code Description Data Arabella rce(s) Supporting Document(s) Care Plan [facility] NVVERo2vQkZBNkOk73/HXUibWUMkf6IaPOxuISi4QXbaNELdK0NsUYT4pI4nEVT9JPfWEvTbElNsTOL0 lbm [file] 9GDQo= ID Date Data Source [id number] 05/03/2021 07:07:07 AM EDT [facility] Name Value Range Interpretation Code Description Data Arabella rce(s) Supporting Document(s) Nursing Note [facility] KLPPJt2hGnJBAuKj16/BHNjrEJQhs6VgCPffRUi0BGhaKJIvI8NlZBP4zA2rPOO5XVsOZqRaSfOeVGM8 lbm [file] == ID Date Data Source [id number] 05/03/2021 05:12:00 AM EDT [facility] Name Value Range Interpretation Code Description Data Arabella rce(s) Supporting Document(s) Blood Urea Nitrogen 11 mg/dl 7-18 Normal (applies to non-nume ny results) [facility] Creatinine 0.72 mg/dl 0.51-0.95 Normal (applies to non-numeric resul ts) [facility] N-Acetylcysteine (NAC) and Metamizole em ve the potential to falselydepress Creatinine results. Baseline values before medication adminstration are recommended. Patients undergoing treatment with phenindione will have falselydepressed results. Patients on phenindione therapy should be tested with an alternativeCREA method.Toxic levels of acetaminophen may lead to falsely depressed results forpatient samples. Glomerular Filtration Rate >90.00 mL/min/1.73m2 [facility] GFR Reference Ranges:Normal Function or [...] of Health and the National [employer]ney[employer]. The Elsie method used in calculating this result is traceable to [employer] standards. Glucose 69 mg/dl 70-110 Below low normal [facility] Sulfasalazine has the potential to false ly depress Glucose results. Sulfapyridine has the potential to falsely elevate Glucose results. Baseline values before medication administration are recommended. Calcium 8.5 mg/dl 8.5-10.1 Normal (applies to non-numeric resul ts) [facility] Sodium 138 mEq/L 136-145 Normal (applies to non-numeric resul ts) [facility] Potassium 3.8 mEq/L 3.5-5.1 Normal (applies to non-numeric resul ts) [facility] Chloride 110.0 mEq/L 98.0-107.0 Above high normal [facility] Anion Gap 11.3 [facility] Carbon Dioxide 20.5 mMol/L 21.0-32.0 Below low normal [facility] The above 10 analytes were performed by [facility] [id number], ,[place] [address] ID Date Data Source [id number] 05/03/2021 05:00:00 AM EDT [facility] Name Value Range Interpretation Code Description Data Arabella rce(s) Supporting Document(s) PT,Patient (on Anticoag. Therapy) 13.6 Seconds [facility] Attention: Effeciive 01/03/2020 The nor mal range for PT (on Anticoagulant Therapy) has changed:Previous normal range: 10.1-11.3New normal range: NoneDiscrepant results may occur due to anticoagulant effects such ascoumadin, direct thrombin inhibitors; argatroban (Acova), bivalirudin(Angiomax) or dabigatran (Pradaxa) or direct factor Xa inhibitors;rivaroxaban (Xarelto), apixaban (Eliquis) and edoxaban (Savaysa). INR (on Anticoagulant Therapy) 1.2 2.0-3.5 Below low normal [facility] Suggested therapeutic INR ranges for ora l anticoagulant therapy: Indication:INRPrevention and treatment of DVT and PE2.0 - 3.0Prevention of systemic embolism with atrial fib., acute OH and 2.0 -3.0 tissue prosthetic heart valves.Prevention of systemic embolism in patients with mechanical heart2.5 -3.5 valves.NOTE: The INR is only valid for patients on stable oral anticoagulanttherapy. The above 2 analytes were performed by [facility] [id number], ,[place] [address] ID Date Data Source [id number] 05/03/2021 04:56:00 AM EDT [facility] Name Value Range Interpretation Code Description Data Arabella rce(s) Supporting Document(s) WBC 5.87 x1000/ul 4.80-10.00 Normal (applies to non-numeric re sults) [facility] RBC 4.05 x1Mil/ul 4.20-5.40 Below low normal [facility] Hemoglobin 10.8 g/dl 12.0-16.0 Below low normal [facility] Hematocrit 34.2 % 37.0-47.0 Below low normal [facility] MCV 84.4 fL 81.0-99.0 Normal (applies to non-numeric resul ts) [facility] MCH 26.7 pg 27.0-31.0 Below low normal [facility] MCHC 31.6 g/dl 32.2-37.0 Below low normal [facility] RDW 15.0 % 11.5-14.5 Above high normal [facility] Platelet Count 204 x1000/ul 130-400 Normal (applies to non-numeric results) [facility] MPV 10.5 fL 9.4-12.4 Normal (applies to non-numeric resul ts) [facility] Neutrophils 50.9 % 40.0-74.0 Normal (applies to non-numeric resu lts) [facility] Lymphocytes 37.6 % 19.0-48.0 Normal (applies to non-numeric resu lts) [facility] Monocytes 8.2 % 3.4-9.0 Normal (applies to non-numeric resul ts) [facility] Eosinophils 2.2 % 0.0-7.0 Normal (applies to non-numeric resu lts) [facility] Basophils 0.9 % 0.0-2.0 Normal (applies to non-numeric resul ts) [facility] Immature Granulocytes 0.2 % 0.0-0.5 Normal (applies to non-nu meric results) [facility] Nucleated RBCs 0.00 % 0.00-0.20 Normal (applies to non-numeric r esults) [facility] Abs. Neutrophils 2.99 x1000/ul 1.92-8.31 Normal (applies to non-numeric results) [facility] Abs. Lymphocyte 2.21 x1000/ul 1.20-3.70 Normal (applies to non-n umeric results) [facility] Abs. Monocytes 0.48 x1000/ul 0.14-0.97 Normal (applies to non-nu meric results) [facility] Abs. Eosinophils 0.13 x1000/ul 0.00-0.76 Normal (applie s to non-numeric results) [facility] Abs. Basophils 0.05 x1000/ul 0.00-0.22 Normal (applies to non-n umeric results) [facility] Abs. Immature Gran. 0.01 x1000/ul 0.00-0.02 Normal (appl ies to non-numeric results) [facility] Abs. Nucleated RBCs 0.00 x1000/ul 0.00-0.02 Normal (appl ies to non-numeric results) [facility] The above 24 analytes were performed by [facility] [id number], ,[place] [address] ID Date Data Source [id number] 05/03/2021 01:45:31 AM EDT [facility] Name Value Range Interpretation Code Description Data Arabella rce(s) Supporting Document(s) Care Plan [facility] HFVCVg2rUyHCTlVm87/GOCrjKAKqd0FhIAalDFx5UJufPQUrE9JiMKM2mL7uKXI6PGdEFlHaIdBrBDT7 lbm [file] stopper maker+5ToOXeuPKSpS0rZOy9+33/1EZGczCBQok4X667fyCfatO8sJWqV/bpX7gsCs68+c0PL036mQx6bB oZxRi0iINPzkj/6r70axpqceZo9SdtW1ihczobvtf+KZyqPiHNsWPZfh+i6dTt0XukOc5tadzaEl2OQT bfJzgdTKwkDM/ck+HY+YqIsTXDKK3aREg/MSDztTas dQ6+cbGGgYvyaZU33dsB/1I4/c34kJQmyNz8l5wdyMjL0z+/X0NUahYOptSFNZkl/U7CslS3pam93SQl Gkx4a6fTpKlW7ZXHh8m4gD06Ww9/0378n/zDi9xwvci6URv1vf1gi7cvkrOB/ha7r2f0R9ZGsble6y4E AFuB/N9eT5RxyNY8Aen2ucJ3hj2Ke+iNdeGWj5RA14 bb34drSAmWnr0Q+T7PGLo3Hia2zu0h4+mkk7C2q9LjPd+wPo3vE0fADj8MVEua4ugee/EqzdV0e/O8h/ 4UTT/N6pIt3l71iDOweZA+NeIVdaLvTlrFm2EsLQZnYW8WZFXtvZceaNtfl380Rqvwu7Qzon+8hR4KB/ q09RxMP0+J5vDWtr470WS46s94q1/U1kes7WgM1ui7 [file] QYAlKqe0P3OcAWUjJs4gRVLKDi7+DWaltQPwcBcpDFJAGiJnPJTwWUhfCHCIMo3E ID Date Data Source [id number] 05/03/2021 12:15:00 AM EDT [facility] Name Value Range Interpretation Code Description Data Arabella rce(s) Supporting Document(s) Hemoglobin 10.6 g/dl 12.0-16.0 Below low normal [facility] The above 1 analytes were performed by [facility] [address] [facility], ,[place] [address] ID Date Data Source [id number] 05/03/2021 12:15:00 AM EDT [facility] Name Value Range Interpretation Code Description Data Arabella rce(s) Supporting Document(s) Hematocrit 34.1 % 37.0-47.0 Below low normal [facility] The above 1 analytes were performed by [facility] [id number] [facility], ,[place] [address] ID Date Data Source [id number] 05/02/2021 10:54:25 PM EDT [facility] Name Value Range Interpretation Code Description Data Arabella rce(s) Supporting Document(s) Consults [facility] JYZVDv1nCmDRVuZv14/QDYwfGTSrm8ZdGCoiARi9TZukXPSkF8QsIJN6yH1uGFV4JYwDFoSzBtRuNSO1 lbm [file] BSJRQ3MATl== ID Date Data Source [id number] 05/02/2021 07:38:00 PM EDT [facility] Name Value Range Interpretation Code Description Data Arabella rce(s) Supporting Document(s) Hematocrit 33.3 % 37.0-47.0 Below low normal [facility] The above 1 analytes were [facility] [id number], ,[place] [address] ID Date Data Source [id number] 05/02/2021 07:38:00 PM EDT [facility] Name Value Range Interpretation Code Description Data Arabella rce(s) Supporting Document(s) Hemoglobin 10.5 g/dl 12.0-16.0 Below low normal [facility] The above 1 analytes were performed by [facility] [address], ,[place] [address] ID Date Data Source [id number] 05/02/2021 05:45:33 PM EDT [facility] Name Value Range Interpretation Code Description Data Arabella rce(s) Supporting Document(s) H&P [facility] HXCLKi4iRhBKLpFc18/GFGsnIFJcz1LsDEysJUr7FSuvCXRlG9XpRSZ3vG9pBMU9IEgBXgLhBzNvFBL1 lbm [file] CARLOS A/fgWirrsTiHd8Kcbh7zHZIFgq/4R18WIdmy8GATISL1p0s+w1mA3FfAVTnZ8gIs5w34eDrS54+SOUo [file] dBL774KBQTfaPYKRinGeJuO81YuxYNOd6hpqj2tPwwCggresE8r+Y+5Dp+qjRT8TeRqUVnVz6eXs+Juan David [file] VhvtTb+3UyQMtKhzWoD7LTrlAJg9Zcl7CRMaVBo0cU0XSNG/3vBem2yDgPvb0JfMhGL12y6jlCtyD/Kristian wF2bcbkGwmxj7WFoY5Dkn5uFlH8jBmAyqE791oDSs+ x86u9e2iyjOC3GSTbyAidHLVj/MyorhUz9VQotJm+uU+jJ4SXXrSM9hfvBuACiTG88eWoKe/jnQ3+claim attorney [file] UxVTiK5z7ShPIouraUypxPVanFoncpnJgftxSe+ NERi1c2VzqSmtnCjEnAbW233QthduZQG3RqxEeBJa8tG/E7vPGFmoHKQLjDkWpBquxNu+WmqBU+FpD32 F/C4TdrCgSvlO/L8/XBif42GROmEO3ZnWWB0WgVV7HQ+SbqPMI82c43T90S5Hy5HX+/Bi/MWJ8mAjd+m e3PjcELtEhy/5Gy4wpx7/P7uxxAvu5TxIaZsYOXPKS U1XXgtXfc3AZZtwiaTWikcE8b0uPdrbH4Ic3uS+al+aJG8pZL7BkZCueRbAhyhSSPmR2ghrI1zjghDrW 3wtPQouWKF6DFW7bY/qOsig8BnLzAHzG/UeacFZyoSoT+1uyKC98XeXaiETnqso1AFvvl4g2tLDt9XYY LGxXDRv+En2V5nyQyRX+Angel+23ISkGcJ6du+Pnx4xM [file] /tM+zBdB8RmefBnA6dc7zPNsJmwihIrUD+dUctH+CMM TECHNICIAN [file] EjIOnwlKMkhbQnq+o9+60eTKUT7m4Qor1I6YpU p7ncU4Yhm+SiVdjQeH3d6MrFM/ZJ0E94ytlaA7u77TjPAOYeTzNYGldMXlL/tpRKYtsD0o7+/s+f8v9v g0TCoeRQhjQlsz2uH43n0EHHY7CfHFq4Oaf5xGuM/vH+CvoxDCNSuH6KwSAai280/0myzYQtCeKA03yj AUTwUnA6O3qD/SmPCmytOo+vzyLAC/uibB5DCa+gnq ngYVRAd0quG4Paqg+fR01H+b2cHSvuJItUIoB1UG/y8D0NhS9Na+HDcuJniK8zxgywOaPYrGIOjasmaM NDLqRKMDZmO8SSgRdNXhRrRlr3+5mK4K5y2OmQxFeqU7PP/JmB2eTvDECckXEw/ycmAEp6Ox2ZcjW5K5 WIkBJKB9WAvmHN5QquRNXQyiHuEa/o6d9wo21YQ8DW 0i/UDMWQMqGx4Vpk64W/wt8xAJSLocu8Nwbo0C+V5Y7IfP+SqlqC0Kqd7UZvD0Vm2b1gVPoqpAHVgupo gADpjyl9zpdmvv3pkUJUvkttIAVNOfslmbt6GxPCHjx+icab4vIm6sUzfinLpy//wo+kSfzevqL9a7ok [file] JtxF/ErE9pmXCRfY7PLp0ac+rEtsnxskaoIibXAG8Q3Rd0ev1KnaG7+vp platforms/QmjKf53GuBeAKNNC6gACcI [file] C+hir2r71p+wQdgEC9VB8cYie6Sxo+meNzWsD [file] /H1CE+UDvZwpfnuxiuSazU8D3uReg+9mjMw55t/drafter refrigeration [file] abdifatah+GP7qhF3eM2ruJ8xK0CtaRjwC1xPPH1lXTChH0+m+x2w0AwvTQdI37TnQJbW8T/YYMB5pqD5U9Rlp c9kQJqkIU4Lmc9Ew0kDuVOVimnKnqvhj/ou473Insr ULuhMlQuIc8m+u/8WUoJMd9AOqXosF4+Ipul3B81eXH89mDIUTa6CpTTf1prffq7tfTqcymYjLI5mSyf I7Pq9WAYTay7lemSgm3JhHy/y5emveSElY+yLOJh/UG05bE30wU/r6j4bHh0EcjjPXkvDfhy9R+MNj0C mxFP1IFnqCX7BKAkuFNkVjyDpPc5NCFU6iEAtzHJ32 GtpT7G+OKolBYT8EffoCIMEFGxP6SPEA/FyZUWDyV/V2plQeg9qHamuP4+Mxgn5EpZhClQ6erL/7LdL0 u5iqMBZxEjTkOksAAT7Uy9mI3XE1ex42gFSBa2kxNsi5e16fYS1c71bSmsbuZfE0KiqwUIr++LR4dwzg FD6nBbXQJ4t+eIHkwcENGC572gwziI5aq1bzeYDMWQ kUNeXkzGt0OEq16iwFbC+8Gz3m45nwgOIFSE/pCIQhuVjBkvtOLF6HkzoO2R/z9DGp9dZZ/CaKwfxHmE ipoT4eANG6u+B3xcvW8K0kqMSYxL1fko0LxV11faXNYvCWDmwtHaXxDuDkoPb708Bh5ADR+m7QbhMLsn DR5TrjP+78/OFm/loj1WdD/SgfFr3fLzlt5TWiysqC T/0hUkqNJqey4C3SZRRXFKQQ4YiVybprZwpInyPmVaB4+4vHFCNiODmTaA7H7bK0JhAfRrwR1NlhfCMI gxL2CryZYOwCAZy7+fyhW9kptbZJmnjragJqw9EVADU1e+vjOppnrlwvycjQ5TqBDzINVh5Yb+gTtmVU AQYSRnd9ZMr+mGLOq/VCXbOOOnEVhOcZz3D6ozFUp7 swLDkx7aiw00WtRFvvosqfAVSSzyjFIQuhh1beUv3fKQvT/k4CWeaHsIVYLvScsZWOJKOU0KrSv/IlFO peanut roaster+J12ytmCaCHNTZjQ9c4UiHNlVb9ybsbH6HxborgBJ3ZdtIy5sY4gLxKpPiG6pGpVBR/EVGkFrwu2L [file] Za96HMoXmWQ/x7usrf1yk+koBNvLgowmEl2W0g+Extrusion Die Template Maker [file] SxLeLxB6DbiEDBA7QAgloYfI7DjSrMRFCFFgZe1kIJFqyQ4rxiWgZCuKgb1Mp+5Oit0uOviKRatYX/Carlos A [file] P4+66Nnpa1DwpGykUWUvwYyTSR0aLelfQIRuPZ [file] CARLOS A+rzP6BDm1eaXOUeGOBriBt8Ori/KC7Fv1EzClL8bLINZvEuMLiWYHo3slOvoXJ0YK9XMtX2l6x1ynm [file] t5dtU+Vd1y0fBIumI9UbdyKhqYVTo9C5IZVbpw720BB+sZONx6sD2B/xvYZWjDfOO3F2B1mGOvslV/Walker Md6a3do+GKmZxb/vNMti+imwVyYHsA0aIJa [file] NiW9SNOk7zun1OVoWbVu0n6BJlGlsfOdUHj209cR4Q2TKOmdfJ7bwVkpyju1Rf2Fc+qiOYNjMef4+[place] [file] 67nC11pNdNI98vr5OcybeUPstFtFQ40TYDQEmCT/Carlos A psywmGQ5EvgAULc+HCa/Mlnnpnwnp3gPe/87rTh3IE8A+jc4fL093/g8dgOC83t9a1bqjtiDAXxVCvnw Z/1G9MKCHquAV91MsRzFlca6viIAzQB8YQNPbwWzU/vuma+xx4ktRWy/zjVOZgte+xUqv9ttS7Goak86 gI6MFHiBV7NY22HCDJ8jkuJ0GGaBJEkoQJqboWNuA+ G55D127uHpdgRNTe3tmlUvsODXGxq6py7lvS+6r6OUToIVx3LCB3GYLHujKHHq9EVpbj2I6eZrTxxzhx cpyk59vPzS7U7I79O4EqjXi4X0ie4b4pVhk1DVj58kvzMR/Gxch55F5B9vGbbYiYm9WcoO+ptqSE6HZR gfLECOWk+riyAbgMFGhUBkB8mEyRnsPLHATOo6cm7p iZF4/zrPcHNA5KfIvGLug2EeuEwLzD2XBDazXzHEM63pD9FBTXjFAXKZatThKyaKcMkxTMGVphDXU5jm dGLoWxnblVOjatRPzFDtR/C3tZccitF8Fu0fUI7bXpVe2YKIJua8r5zcimXM47yOsJBLhQKPZyZUcW7s mGeZPFKtVyT/Okt+A3rKfuuuQF1JgkUYuDAc+Y0/ [file] 3rZ6/WqSmIViXYDQhryzUVFTFZYZUHfYAyPdKmyQKPrpU9YoJ+ASSOCIATE STORE LEADER/8fbtPceFGg0M+oxIOO2hLPM+uF HOQJ+m43f9a13P48jtuDwdq9hGQrgFlK8/M65bGsi7VH7ta40Jerf9OA3m5tj/5/LILQjf0pCqseO+1P t/NU+RXwE7AWZX2kSuPXtSq87op32+wO6t4LSw1RI3 eOukXAO19MoaWaPBGyrnMbnphL9d476/o6ePsiqS1u0QLjvS4deLbXSlQ80/2WaUx1v2hGng2lAJvM5i 3rnnOPsaE7195blm8/tf74QyE9p15xdAxXGh/oor71Je9k0UkuXNCiMTyX+bafWIGTt1Bx6EQ8FTbldG oD//kzCZu0Re/EsjwdJDQlnzSGOqXIY2NPDPBmZ/Bt AKMAgnzhchz7YhjOt7RBr/enU0bEq7nj3HPLWQimJQV4vubyxHwvyFyX+jVsfQBpob5IsGilcH3WxLoL BukDZnXcqECZKWjMYBSanVRxGzkHl+HD6DYYAO1w6N7qtlDtKoQMDMVbzhHKp7sTd7CtFq1Z/Vppj46X NPAPRDLfRUVT8Y/H0CQ4dKEFTVlRJBYkGtG1qjYfzC [file] MIXING AND MOLDING MACHINE OPERATOR+Fz0LyDRG8v0ZfCE3qBbp1VM6VIuYgvozSgFkuPz [file] ltJL5uyqJDgdUU9pGkC/u/va13+Product Communications Manager+pUoRp418Ga+L07fHXujmZrceeudvu7Wk0csS4n4TNJEhOYTA+ [file] Ye1J5yYx/hD8C1RZ//6H/pXf//inking machine tender/4PNgv15RdU9aw [file] Carlos [file] v3FFsJGQc9deaZjAivhnp9B45f3kEg7kTzWn0RVc9foWI40fPdYR9b4Qyt3Vo7iAEzdGbkRZdOAn++MIXING AND MOLDING MACHINE OPERATOR [file] enjLsPhZeCAbrwt+qM+IdarVA6hX/k3XYzYRlhiFYLEtr46LRoVtRfEpMCeR6rTHzAx7AuTLIt6n/group home [file] AgICAgICAgICAgICAgICAgICAgICAgICAgICAgICAg ICAgICAgICAgICAgICAgICAgICAgICAgICAgICAgICAgICANCiAgICAgICAgICAgICAgICAgICAgICAg ICAgICAgICAgICAgICAgICAgICAgICAgICAgICAgICAgICAgICAgICAgICAgICAgICAgICAgICAgICAg ICAgICAgICAgICAgICAgICANCiAgICAgICAgICAgIC AgICAgICAgICAgICAgICAgICAgICAgICAgICAgICAgICAgICAgICAgICAgICAgICAgICAgICAgICAgIC AgICAgICAgICAgICAgICAgICAgICAgICAgICANCiAgICAgICAgICAgICAgICAgICAgICAgICAgICAgIC AgICAgICAgICAgICAgICAgICAgICAgICAgICAgICAg ICAgICAgICAgICAgICAgICAgICAgICAgICAgICAgICAgICAgICANCiAgICAgICAgICAgICAgICAgICAg ICAgICAgICAgICAgICAgICAgICAgICAgICAgICAgICAgICAgICAgICAgICAgICAgICAgICAgICAgICAg ICAgICAgICAgICAgICAgICAgICANCiAgICAgICAgIC AgICAgICAgICAgICAgICAgICAgICAgICAgICAgICAgICAgICAgICAgICAgICAgICAgICAgICAgICAgIC AgICAgICAgICAgICAgICAgICAgICAgICAgICAgICANCiAgICAgICAgICAgICAgICAgICAgICAgICAgIC AgICAgICAgICAgICAgICAgICAgICAgICAgICAgICAg ICAgICAgICAgICAgICAgICAgICAgICAgICAgICAgICAgICAgICAgICANCiAgICAgICAgICAgICAgICAg ICAgICAgICAgICAgICAgICAgICAgICAgICAgICAgICAgICAgICAgICAgICAgICAgICAgICAgICAgICAg ICAgICAgICAgICAgICAgICAgICAgICANCiAgICAgIC AgICAgICAgICAgICAgICAgICAgICAgICAgICAgICAgICAgICAgICAgICAgICAgICAgICAgICAgICAgIC AgICAgICAgICAgICAgICAgICAgICAgICAgICAgICAgICANCiAgICAgICAgICAgICAgICAgICAgICAgIC AgICAgICAgICAgICAgICAgICAgICAgICAgICAgICAg ICAgICAgICAgICAgICAgICAgICAgICAgICAgICAgICAgICAgICAgICAgICANCjw/nTOdJ5yxkUNfwtT2 W9olSc2IMb9TOC8on3YgHLYhHHnpmrObWpvUNwJhVRTjFbiASgo6AKtwVW0WuILiS5ZeA4KrSXjqTW0B OFGxIUDrmJVvDLLlNOHmFpB8GJRrSLdlHA6KnHOpBU wjWAFqOCMdUnGoVQTfVYOuPVCtMFXtDJLHQXOoCKFpPiPkYOFdCGGhHPvjKTRIWKE8QZZjEmHzJQdqOH 4Hb8WdsNI1LBl+Je4IQK6nk5MxMDh1FINvDU8nhc0OMFxBPsAuQ2BpyjZ1JGI5HHIlHc7QVUQxSLIarF V4DHGeMRTGQdEhG3RcbD43ENTTCu0+DQplbmRvYmoN NzS0JAHoi8UtFTt6OU7DYRDwQYg2dHMvTSCHOJB9GZBnuZvmcOCSQQEqrTOySB0DZMO6KWazAfLiHtQk WEWwXHbvHFQQOItPCaDsQ5Wol8QpYxE7SWPyPcAoLUndWGWoSiX9KC43qYktGM9YCEWxCRJbIC79HFM9 FHVkSd5QHl5SHgOxWP0toj6TFGXfSJFxKedTZid2GE blGS7PlREsF7OyuZRmq1dMRjRfK6QMMFGzENSsIz0PBPUpYnIrADJaHGaoPJ9uKCYjZFZJiRjrakF1KJ 0IOV5estPqOT8XZnHnPn3zNy4BFpGxF9WjX7MpNBMjPXZVSYwtWJ9YBWzsJD0aRM5Yw3DDuWJbuB8quv 3VMQKhYBNwVilavl3AYyheJ9N3gVpfCLZfRMLbAYQV BDzgGM9KDXEgCOE7MFT6GfFbXVCAOeTiY92oVB7QF3Taa04bWeC9DGLzPhDuXHkfQW94vOgzmnFzgLCf oMnqQM8HTg1+HVcduqYfUvtKJfmoKDKLUgFuFHtKBvNkJDAjFTHkQFKwWdF3JcPyKr2CHWJrXCElZKZc GoDfKGOrDPCcKCcgXEAiGgN3FBs0HPRxUIVxCS1OXk HmXCP3MbndLVWbPBSxKARloq5GWDBvWWBwPKN6VcCoMCVwNLPoGUhiYCQcFBKgDQL6VLSmRMGoUK8LGq LxMLNfZUPnZAnzXWMfDMDapf7AKZWrUACfQtH7FYGaBDSaTKOqDTqhTUKfTBE4DZz1NSJkZEZuZX2YWn ByQRIyKBcuNJFiBOIcPARujw9VJPGgJYApJOR5SyNm GFTpKEWsMIdaGHHgYMUqVjR8GXWfPVVpFM7NWaCgOOPxQBP7RjQnXSNrLJHsoy6KQEEdSDJiYyN5MFJi ATAeBJLyJEjcAZGaXYIxQsB6IMBnAGCfRT3PMkJkVGSvKMXwBIIwYWOrGCMlcb2CCJFsXEDjFqX4JOMt FNNpOKLoXQltXVOjOXZlNCZ3UPPtLXHwGM2YYwQhHX EjUVJrQYHgUFRqREDscc7LAHXtLFYhQaDxEFUkZXLbIBUdXGnoWORqQZP0BwFtHOTiJYPmGA8MDlPfLB VrOJmgAZnbHUMfRVLtuu4VZNEcPXDkOdTqCIDoPRXhJQZbIWqrWUWvMHA4Utg4SSLuNGXeKD8EPwCgCT QnVSf5WPrvQJDyLIRcnj9PJVKsMUHfTKs7GoOmXKJa KXUiRVcrRDGhKCZ5VMM8RNJpGKTrKY3ABmNaSREhKSw5CSepPDSmKWVqul0FIANuASIlSQT8QWSrJCEe LCKhVKnsTUPuUQPpAeygQFQuSUEnWY1MHrLwEJUiTpHeRjCeVTHvBJDjmb2BSHCiCLElSNSwRcVuSQBz WXQqXTkdCZYuNVZtBzE9MEVdVIVoTZ1GMbCoMVOhBn E4BtRzBBDcCZFihr8NJJOmKHOtHce9SaTuJHTfFDQjVGhuJCEjJEMdGIwvWCHeJHNaKR9XUyZuNJPyZz ScJjHwHZSwWCTees3GLVCoRUCsAKF4IoKsHFWhXPYoYYpgEHJnLQX3ITKcKQMyDVJaHZ4SLjGxBOFiBe BmUgOqZSVuKSHrif1BBGDkIJVqUjH4DGZwNMVbNCHl JUfbZHPkSCH0VVZvRVDoSCAtHK2NKhZqORE0OoL3NEJkJWRtOAPclw8MDWTfXbZqXsf7YTNxAFMqZPJx SNmcFOFeGeY4PRA3BFAeJTOkAG5DMrQnPPM8Cdm6XeYtHHJlOAJeln8ASDZmUuIaDEM5ZtVnGDWcFXWq QDw0dzNnmZCsQCb8ML8LP2LgneUiXCeLAz5Ga232ZE U6CJLvJc4AH3jlEj1uQGHdNXWOBr4VZHg6LqPnDvJbPmMvD6O3CvL6UFWeCEJ8LXynHrDdVCZlU9T+ID yrLKDrXOWlHrFeUTS1DClxAXRoGbixXRJjEOVqMmQbJX7rOWTAUg4+PGychLLvwChoPYZHHyW6Xgc9FL nBSfEgPB2UMIv= ID Date Data Source [id number] 05/02/2021 03:30:27 PM EDT [facility] Name Value Range Interpretation Code Description Data Arabella rce(s) Supporting Document(s) Progress Notes [facility] KKRYUi7iZkCHZyXn53/RTYtqAQMcg4ThWEzqKLw0RJfgPGXhQ0JgHUH0nQ2mRZL2ODdCWwYrYfLiJHT8 lbm [file] B3rfBaBYbnKfmgAM5AMRRFJ1AGLs== ID Date Data Source [id number] 05/02/2021 03:11:58 PM EDT [facility] Name Value Range Interpretation Code Description Data Arabella rce(s) Supporting Document(s) Nursing Note [facility] DXYGUs5rShYSLwLt58/MBDeuVHKfo4TaYEbxCMx7VZmsSKUsO6LeITU6wU9pWZK3CPbRQgDqQlZtDKT1 lbm [file] NlV7GADxHYNnOHTxFmM+KB7mYSe+Vq9Os1VzhrH9jrXqWLseMNg3Up0FQVKJL5NQTd== ID Date Data Source [id number] 05/02/2021 03:01:14 PM EDT [facility] Name Value Range Interpretation Code Description Data Arabella rce(s) Supporting Document(s) Care Plan [facility] BOOJHe3yBcVJVvTg63/HGWwqMJDpe9KnSPkjPHk2GEvpRKXnO6AkQPT3fJ5nHWS5KAfRLiAeCvVsWHQ6 lbm [file] QkAR2XFLz= ID Date Data Source [id number] 05/02/2021 02:32:34 PM EDT [facility] Name Value Range Interpretation Code Description Data Arabella rce(s) Supporting Document(s) Nursing Note [facility] TPKVCs4nMvCGPmDb75/SIAfhCCDov2YlUHivEIv1UQubGTSbR7LhCIJ1qE7dSXO5CQjRUmGxWtKfFAF7 lbm [file] Wp7BDuL1AAD8rXZqJa0ZImK1AQQRTzReSR7FQSg= ID Date Data Source [id number] 05/02/2021 01:51:03 PM EDT [facility] Name Value Range Interpretation Code Description Data Arabella rce(s) Supporting Document(s) Progress Notes [facility] PPYJUn0aAvEYPrDg38/YXVdiRCXhf6HrDQnsCUb0MKpiQOMpG7UxBEG2bF3qIYT9EBkFRmZqCrMgDJA9 lbm [file] d3VQ0CCKH0TVQqOd8SEULdEW4DWWXhNTLyDCFJAgWk ZAZzEiNgACZtXZHIKLugTCXqA9AoSEB5GOXaMc6XLNRdAH0DSNYrUkZwNRM+Dd5EZQXeOZ0inaThkJY7 ROLLER PAINTER+Tv2QUPZzSNu6U7N6PAJvXJs6C9JEL3FUKFVfNUlfBDdhABRgQRo6F7U1KQBjQ6OJT1Tzreldhr0+ BW9XA69YRDShMYx3Y4E9qAJzL5D2sSfPfVI2UR6OUV 6OdUg7lFPlhJ5+QE8PR4DGYiSdJZr3V3H1mBUoR3H5gBkCmDU6XP5LUM1WcIZhCMDxpzGhZt5yQ7OVRJ mXHqMYEQI7ZH0PgAOfQQ8BgRDII3DdwUEsKa5jMOtcyIXvwK9bRc6qEZzuMM2FYeTITBgOVRL8HG6WuH WrQI3ClEVHN3EssWJdGq0uCKxtsUYxlf6+RZ5TJSRh Xg6ESl4+MGnhouRvGoaTCdX0FGLot3NrPVd5NK6BEB2fiFbmFYR0Xq4YvTU4xTTuS4nMKF3KuEIsW19n qCUlYEFkFd6OCxI0suLdtT5KXL45iJGlj3M9OEPlW5ofZLljg78zVQbtHWbUWT3fCTAPCVjjYJljJXF8 UwOocgfhYYOwUz9YKsLaBGv5vS1dwHG5KQY1EysfbQ WoXKiiUlDkNjSvKdJ4mUwzwwb7GXthSS9oOXowcfnjNRCdOfd+EZveDYMmXCUlFrzSIBHbgE5zwbE8ju RuDCygvPEfEs7rm9b0GnfuLy1gIr2gSGz4JmEcGqLsCBEvRd0lzC23XDfiwpFkAl2EDbYaSQU6T8MiEg pSREY+GBegHWkgcRv6zTNxXVDnKp4FKYZtJGJoMKIa ICAgICAgICAgICAgICAgICAgICAgICAgICAgICAgICAgICAgICAgICAgICAgICAgICAgICAgICAgICAg LMXcIFOyTSTeADQqDHMaRIKyWKFyTQAbDHNlFQQoSI0NLNQpUCTsKFEsVEDaKWClXLRwJSCkFPZkBZYp ICAgICAgICAgICAgICAgICAgICAgICAgICAgICAgIC XeJQXnSMXeIQObILUaJBVkQXSdRNShGPLcCTJtFWZfPNYtQWLwOLUtEN7ZYDZnUDKaFOXiXMWiZFRbUK AgICAgICAgICAgICAgICAgICAgICAgICAgICAgICAgICAgICAgICAgICAgICAgICAgICAgICAgICAgIC FrSKTgPTCkKOAlELLuSRPqJJGsWMCtNN4GTPJkHFAk ICAgICAgICAgICAgICAgICAgICAgICAgICAgICAgICAgICAgICAgICAgICAgICAgICAgICAgICAgICAg YAAyUFYmVBZdNUJaCYEgVPYnYIQnHRGnIOBuKPHoZAKnFV0AOWIkCHCqUCQnCHIrKDFvAUXtBEJxOZTh ICAgICAgICAgICAgICAgICAgICAgICAgICAgICAgIC HsBFHkPHNcJPHqIBGbMTAbNGEqCJFgSGFgTCSxCZFkOCTfRLAyMIOuVYHzIN0ARVXtWYIdZIWcBZBoMA AgICAgICAgICAgICAgICAgICAgICAgICAgICAgICAgICAgICAgICAgICAgICAgICAgICAgICAgICAgIC VaJXZvCHCoAZVoKDVtREGvCSJeFQSxXJDlOW9FUTSz ICAgICAgICAgICAgICAgICAgICAgICAgICAgICAgICAgICAgICAgICAgICAgICAgICAgICAgICAgICAg HWQfBTUwAYUsIYXsYDZmDJKkZRDfITEtWXOrWNPbCPZiENAqJU8WQIUqWSZnVGPqILMyOUPyYWOgHOVx ICAgICAgICAgICAgICAgICAgICAgICAgICAgICAgIC KoBRRyGGHcUAEnRLVnUXWhZCUaTEEsIUHnNISqOBCrMQWpCRSwOQZmIHOyHLMeXR7LIEYlZXTeWUYfMI AgICAgICAgICAgICAgICAgICAgICAgICAgICAgICAgICAgICAgICAgICAgICAgICAgICAgICAgICAgIC UdLYVpJGHtYKHzXHHeGUBfEQTgGPXpGTOvFVAwZQ9N ICAgICAgICAgICAgICAgICAgICAgICAgICAgICAgICAgICAgICAgICAgICAgICAgICAgICAgICAgICAg SJAmTQGbIGLgEAGpTKHlWLLfLYCeOOBzOLXhROOtCIWxIDSyKXMgCS0GQP40bFXfn8E4DBNwZW0kaef/ Vf3VIZwcazKloAAxMH4ELiRsAK1pxe7SFhFzMT5gyk 0UOKfXTfKdP8U3yITyUBHfUDPFEoSvO54hDSewKh26URpaZOHeBeQmFDo7Xp9VFaAsK5rkIMDmAnP4MQ WyTgVsURqiEY1Jd1LeoRPhOVc+Lp2QHN2nx0WeKYvwPVEkTF1kvk0NDDnLHtZqC2TjknI0OGO9SYPvXz 1FASKcPPGihXJlFaPmZAHEPuFlC9FlhQ45PUDHBw1+ VPmgsjIxNprRUtR1XYIjc6SqXGn6TO1UNVZlGQj4dCRdIPZmK2Vpb8QeXr58KWAbIyhwHomySyZEOGou ZRG9KMpyPnRkWgWfOANoFGk2JsQJMJmQIfXqS1Wll5XaEfN8TVJjWmXkCBpiYWPjOdA7GQ11rEcbPM0S RCMcCDSmRC73RVG3ACXkTx6ATo6BFhGcHI3cnl8GUy rwYMCyDhcOVfg9HRlvKK7KbQFyB8VfjXEyi6pEPmEgM7VAHCZzOHEvKz1YSTPeQrOtABRxCZkgVF5lZG KyNARRbWoxnaK3CP5JYU6djbWcCP8HOuEqIs0iWn8OJgQsF8KwY2EoQXWrNWIYWNupPD8GWQsaRU7xRS 3Pf3AGvCGyzB9hcg9GBIWxJXLmYnbgsj4NWuefK1I5 nNsjTBGnYjRcXESYOPrrRZ9PHJBhIPV4NQHdTWSuTCWPBgWrU47aEC3CO5Gvh18dXqW8CSQtTeCpUVft NX61wWyqjcXzxNOttQsgHZ0EAv5+WIisetDfEvnHOdaoQOWOZhKjQriKBvMkWLQtUAYvPZYgJfK7HrNn Ep8FBKGsDNCvMQYcYxFzGOFrMWJbGXjeJKAwSGRpBW G5ZIZnXHKuTG2NVkFiSAHeJjN5QogdOHHbPXIazl3IBEHrECWvNPD3UeKfFGPyPIFsZTpnTUDwUWOuXy F9URMfXFIvHM4ERkYdCFOaIYU5DWMhZEVbHTHvjs0XBCKxPCFdVeEtAETfJVPeDHVoHYgkAKRaKLZqWj AaEMKpNIIeEN2COtEwMKGoHQT8XBjyZIJjOEIyzs3E LARxLVVqROj0UgXgISGpDNYpGDijFXDoUSW2FMItIWArBJBrTJ5UMsCbNQVpVDLdSeMyCHFfEQHhph3C ASLnLRExDpV1KUVfVSVtHICiBJpuWAAhDTR9FHjrNHDaXUYvVU2FBfVnNZIuXHckSWwzNHQpBTBgwp4A GZFmLKBkDILlHXHxVIMtSXCeLIkqAPAvCHR7DWe2PN PiAFMeWV2IEgDjLTQyJIz7CebxUWIkYYElny3RLVCoEIYvZWZvSYWrZUNpYZMjUUgoMUXtCBX7Cnz8GL OjUUVxLO5QFqBaTJQyQpU2UdtnGBFwQDMbmy5OMWDoBMZsHNpvLYZbGONyXPToHRcaZSStYDJzQIe4CG IsCIQpQB3JMuNjIHJwKqU2PcvdMSGmTNUjoh7UHGCz QDLfDuj4NjWrKBKzFAXfIXupLFStGBFcBMV9UEJsARSeWB4SLmReZZDpJvTqSpacYKPhNYKgtg6NiXKz gTalso9QKPeRJp5QmLqnRVT0DTixKo0uvJGpGbXmAZCOPf8KutBcEXLdRPYIWNbbWTSgRQG3DeugQAM4 KGYzZuHyPLVsCmQ9UHLuHjFgPrYyB0Z6QiY2UZHaLA HiBDsaRBKaFRF7VBFcKMR2HyCvFoBlPUJ4CIs+JR0dBTa+Ex9Lo2NmsaW1ycPbZDthOyNvIz2XLQBDU3 YNCg== ID Date Data Source [id number] 05/02/2021 01:17:00 PM EDT [facility] Name Value Range Interpretation Code Description Data Arabella rce(s) Supporting Document(s) Iron Saturation 27 [facility] Iron 97 ug/dl 50-170 Normal (applies to non-numeric resul ts) [facility] Patients treated with metal-binding drug s (e.g deferoxamine) may havedepressed iron values. Total Iron-Binding Capacity 362 ug/dl 250-450 Norm al (applies to non-numeric results) [facility] The above 3 analytes were performed by [facility] [address], ,[place] [address] ID Date Data Source [id number] 05/02/2021 01:17:00 PM EDT [facility] Name Value Range Interpretation Code Description Data Arabella rce(s) Supporting Document(s) Ferritin 9.8 ng/ml 3.0-388.0 Normal (applies to non-numeric resul ts) [facility] The above 1 analytes were performed by [facility] [address], ,[place] [address] ID Date Data Source [id number] 05/02/2021 01:10:00 PM EDT [facility] Name Value Range Interpretation Code Description Data Arabella rce(s) Supporting Document(s) Vitamin B12 324 pg/ml 211-911 Normal (applies to non-numeric resu lts) [facility] Folate 21.37 ng/ml 5.39-9999.00 Normal (applies to non-numeric re sults) [facility] -----Interpretive Information-----Folate Deficiency: 0.35-3.37 ng/mL.Intermediate: 3.35-5.38 ng/mLNormal: >5.38 ng/mLPatients routinely receiving high-dose biotin therapy may show falselyelevated results. Additional information may be required for diagonsis.The above 2 analytes were performed by [facility] [address] [facility], ,[place] [address] ID Date Data Source [id number] 05/02/2021 12:27:00 PM EDT [facility] Name Value Range Interpretation Code Description Data Arabella rce(s) Supporting Document(s) Hemoglobin 9.5 g/dl 12.0-16.0 Below low normal [facility] The above 1 analytes were performed by [facility] [address] [facility], ,[place] [address] ID Date Data Source [id number] 05/02/2021 12:27:00 PM EDT [facility] Name Value Range Interpretation Code Description Data Arabella rce(s) Supporting Document(s) Hematocrit 30.7 % 37.0-47.0 Below low normal [facility] The above 1 analytes were performed by [facility] [address] [facility], ,[place] [address] ID Date Data Source [id number] 05/02/2021 12:25:00 PM EDT [facility] Name Value Range Interpretation Code Description Data Arabella rce(s) Supporting Document(s) WBC 5.18 x1000/ul 4.80-10.00 Normal (applies to non-numeric re sults) [facility] RBC 3.71 x1Mil/ul 4.20-5.40 Below low normal [facility] Hemoglobin 9.8 g/dl 12.0-16.0 Below low normal [facility] Hematocrit 31.1 % 37.0-47.0 Below low normal [facility] MCV 83.8 fL 81.0-99.0 Normal (applies to non-numeric resul ts) [facility] MCH 26.4 pg 27.0-31.0 Below low normal [facility] MCHC 31.5 g/dl 32.2-37.0 Below low normal [facility] RDW 15.5 % 11.5-14.5 Above high normal [facility] Platelet Count 213 x1000/ul 130-400 Normal (applies to non-numeric results) [facility] MPV 10.0 fL 9.4-12.4 Normal (applies to non-numeric resul ts) [facility] Nucleated RBCs 0.00 % 0.00-0.20 Normal (applies to non-numeric r esults) [facility] Abs. Nucleated RBCs 0.00 x1000/ul 0.00-0.02 Normal (appl ies to non-numeric results) [facility] The above 12 analytes were performed by [facility] [address], ,[place] [address] ID Date Data Source [id number] 05/02/2021 11:50:00 PM EDT [facility] Name Value Range Interpretation Code Description Data Arabella rce(s) Supporting Document(s) 01 - Product ID Red Blood Cells [facility] - Unit Number [id number] [facility] - Cross Match Compatible [facility] - Status Info Transfused [facility] - Product Code [id number] [facility] - Blood Type A Pos [facility] - Issue Date/Time [facility] - Specimen Expiration Date [facility] 01 - Volume 341 [facility] The above 9 analytes were performed by [facility] [address]man[address]# [id number],[place] [address] ID Date Data Source [id number] 05/02/2021 05:35:16 AM EDT [facility] Name Value Range Interpretation Code Description Data Arabella rce(s) Supporting Document(s) Nursing End of Shift [facility] IMFXHm3pMhBLNaSp84/NWZjaBOFes3ScTWefJAg6YVaqLIMvP7NeRIE1iM3rPLI0FByTRpHdHxAeRUC9 lbm [file] ZrfBVQZr+vsH48/Fbi3nCv9gmXEuLijS/zI8/p [file] ICAgICAgICAgICAgICAgICAgICAgICAgICAgICAgICAgICAgICAgICAgICAgICAgICAgICAgDQogICAg ICAgICAgICAgICAgICAgICAgICAgICAgICAgICAgIC AgICAgICAgICAgICAgICAgICAgICAgICAgICAgICAgICAgICAgICAgICAgICAgICAgICAgICAgICAgIC AgICAgDQogICAgICAgICAgICAgICAgICAgICAgICAgICAgICAgICAgICAgICAgICAgICAgICAgICAgIC AgICAgICAgICAgICAgICAgICAgICAgICAgICAgICAg ICAgICAgICAgICAgICAgDQogICAgICAgICAgICAgICAgICAgICAgICAgICAgICAgICAgICAgICAgICAg ICAgICAgICAgICAgICAgICAgICAgICAgICAgICAgICAgICAgICAgICAgICAgICAgICAgICAgICAgDQog ICAgICAgICAgICAgICAgICAgICAgICAgICAgICAgIC AgICAgICAgICAgICAgICAgICAgICAgICAgICAgICAgICAgICAgICAgICAgICAgICAgICAgICAgICAgIC AgICAgICAgDQogICAgICAgICAgICAgICAgICAgICAgICAgICAgICAgICAgICAgICAgICAgICAgICAgIC AgICAgICAgICAgICAgICAgICAgICAgICAgICAgICAg ICAgICAgICAgICAgICAgICAgDQogICAgICAgICAgICAgICAgICAgICAgICAgICAgICAgICAgICAgICAg ICAgICAgICAgICAgICAgICAgICAgICAgICAgICAgICAgICAgICAgICAgICAgICAgICAgICAgICAgICAg DQogICAgICAgICAgICAgICAgICAgICAgICAgICAgIC AgICAgICAgICAgICAgICAgICAgICAgICAgICAgICAgICAgICAgICAgICAgICAgICAgICAgICAgICAgIC AgICAgICAgICAgDQogICAgICAgICAgICAgICAgICAgICAgICAgICAgICAgICAgICAgICAgICAgICAgIC AgICAgICAgICAgICAgICAgICAgICAgICAgICAgICAg ICAgICAgICAgICAgICAgICAgICAgDQogICAgICAgICAgICAgICAgICAgICAgICAgICAgICAgICAgICAg ICAgICAgICAgICAgICAgICAgICAgICAgICAgICAgICAgICAgICAgICAgICAgICAgICAgICAgICAgICAg IQToUWg0G2maWCCnVOPgLH2gUDs4Ux2+DQoNCmVuZH M5zpGozG4CCF1if9ZpYThiOVCia0ShAEk9EU6GWXXwNLbmCS7ZQBypaq4GKCKuVDTxiGFVh1xbZiCzWI Q3POXwSgthJH1QWVBaA5wyidYyFVFrNWMURR4UHvPrU4BkiI81XCKWFr9+FHdcjnNvQvbVOuX4CZHks4 LwTEg4HR3UCQEcEtdtc0TdDpSuXKSIOLcnFO7GJJW0 BNS1MJQhYj6LCLEyY664udVaLS9JSu3ZGhMuPT6bes3HVxHvSXJnMwjPDeu2NDcxHV1VtLSwTRvLcHTq kC1rJFFaZYUbThTDaMzoxIKzwDZRsNLvNJMfDPjbggShRTumILGIAEI4FRdlWyFiHtAkUXFcRDauEuJT EOtQVfAlI0Shw4EwDsJ1UDNjBkHnJPmoMFWvLiA4CE 81dEuvIX2LYVDfHZNbNI58MGX0MPEbSb8PCs5SQhBxCS6rhm0EScxuUOUcShoVDqx9MGpgCJ3XxCGrX0 NqpRYkf4aEYrFeX2CENKKyHUYyKo8NCQQjAsVdHFYuJKphGX5pKQQiZULFwBwclaW3MZ2LJO4dsjYfLL 1TCnQvXv2oHe2NGqLpK4GcJ0TeDULhNPETXFkxSZ5N FBsaFD2dCL8Pe9JJeKXjaA5aqj0PUVInKVYaYexrhn2LIdngT7G5wWfxADPlJfTvXEFTPYsaPH4UDLUd JPU1ANRaUABxBITLWdVtF94lRW2OO0Qas58fAnG3XPRxJnPfLJehPB40sZkwrsTtnSQsrFlfEM5ZCa7+ DQplbmRvYmoNCnhyZWYNCjAgMjgNCjAwMDAwMDAwMD LyLzT2DgLcYx9MVTVxGMLzLCFuItTsUQMoNJHbVIsmDQXiBRPzMMD4HDRiISXoRO6OOhTdSVDrPhEkWY AnCMNoMRBbdx9XHEVgRNYyXMS2CxEtQTXvXJDlDRwlRDPyZYGuViI5CSUzDYJvJB2YSoGgYWYlLFB9Ra SuHYVaFNUlse4RSUJkOKBmNixzUOPlRNZrGNMtRQfh WZBpJRBvIMZ6KERhFUZwCD9NDyTlZSBqBTOhIWSlDTXaBKByrf9DWXNmXEPwFJG3HtWgAJDoMYPlVJqg PLJyTRL1EAJoPYTmYKOqWZ4UIxBaNLTuMMO7UOErNNGeMZMrkd8DMBIiPADjZbj0ZITlENBfEONeUTwt EWJkOVK0AiU2DBUtILJcZB3GRcUiTULnWBh0EUCyLA AsZVFabq8HQZBrXZPfUwr6MtOtJZPsKGVqHEimTOPeCUQ1WUCxZDCkBJKfBE5IAnNlMEKwYSq8FXXhZX LjKCPxan6PPFDcACEmMWRlAEYyIOUbIETiPTpuMIKiJNC1IdLjJTTmERRtQY5JBuXfWLYwFdDqMAWaKQ AhMPQghu6JVRShWEBuVSBkEiEhQVHlHAOkVRptAQIr PPYzUFM8WDZfWCVdYC9ZRnZdUGDyTaE7WPUoLSKxOXTqjb4QMZYxYCTnQhV3PGLiTSRgXKPzBFzwANTy KGVrLHD5YWFkPJQyAO8CBxBmWIYnCaU8WEWpPXQxLYPitf9FeSQvwVeeuu9GHGqJMt8UcCeuQWW4MJgs Sv5aqKXjQqKcUDXWFf8JcdFhDGXwYZKNLEjiNAOyTD VvMxvbWKGgYJNjA4SwMCX0EJL3IsLvTXQaZQTeKUs8PmM3B3EhPLG0BBGmRJIgTMQ3FRx9HaVhTDTlYM IwNWNhODk+RV3pNMa+Lq5Wg0EwdnP3ybUkETncCov7NN4MDVTHH2AWYx== ID Date Data Source [id number] 05/02/2021 09:59:00 AM EDT [facility] Name Value Range Interpretation Code Description Data Arabella rce(s) Supporting Document(s) 2nd Confirmation Type A Positive [facility] The above 1 analytes were performed by [facility] [address] [facility], ,[place] [address] ID Date Data Source [id number] 05/02/2021 06:18:00 AM EDT [facility] Name Value Range Interpretation Code Description Data Arabella rce(s) Supporting Document(s) ABO-Rh Typing A Positive [facility] Antibody Screen Negative [facility] Specimen Expires Date/Time [facility] PATIENT HISTORY Pt Hx Checked [facility] The above 4 analytes were performed by [facility] [id number] [facility], ,[place] [address] ID Date Data Source [id number] 05/02/2021 05:24:00 AM EDT [facility] Name Value Range Interpretation Code Description Data Arabella rce(s) Supporting Document(s) AST 14 IU/L 15-37 Below low normal [facility] Sulfasalazine and sulfapyridine have the potential to falsely depressAspartate Aminotransferase results. Baseline values before medication administration are recommended. ALT 56 IU/L 13-56 Normal (applies to non-numeric resul ts) [facility] Sulfasalazine and sulfapyridine have the potential to falsely depressAlanine Aminotransferase results. Baseline values before medication administration are recommended. Alkaline Phosphatase 110 mIU/ml 50-136 Normal (applies to n on-numeric results) [facility] Total Bilirubin 1.40 mg/dl 0.20-1.00 Above high normal [facility] Blood Urea Nitrogen 12 mg/dl 7-18 Normal (applies to non-nume ny results) [facility] Creatinine 0.79 mg/dl 0.51-0.95 Normal (applies to non-numeric resul ts) [facility] N-Acetylcysteine (NAC) and Metamizole em ve the potential to falselydepress Creatinine results. Baseline values before medication adminstration are recommended. Patients undergoing treatment with phenindione will have falselydepressed results. Patients on phenindione therapy should be tested with an alternativeCREA method.Toxic levels of acetaminophen may lead to falsely depressed results forpatient samples. Glomerular Filtration Rate 81.00 mL/min/1.73m2 [facility] GFR Reference Ranges:Normal Function or [...] of Health and the National KidneyFoundation. The Elsie method used in calculating this result is traceable to IDMS standards. Glucose 85 mg/dl 70-110 Normal (applies to non-numeric resul ts) [facility] Sulfasalazine has the potential to false ly depress Glucose results. Sulfapyridine has the potential to falsely elevate Glucose results. Baseline values before medication administration are recommended. Calcium 8.7 mg/dl 8.5-10.1 Normal (applies to non-numeric resul ts) [facility] Total Protein 7.1 g/dl 6.4-8.2 Normal (applies to non-numeric re sults) [facility] Albumin 3.1 g/dl 3.4-5.0 Below low normal [facility] Sodium 139 mEq/L 136-145 Normal (applies to non-numeric resul ts) [facility] Potassium 3.6 mEq/L 3.5-5.1 Normal (applies to non-numeric resul ts) [facility] Chloride 112.0 mEq/L 98.0-107.0 Above high normal [facility] Anion Gap 6.6 [facility] Carbon Dioxide 24.0 mMol/L 21.0-32.0 Normal (applies to non-numeric results) [facility] The above 16 analytes were performed by [facility] [id number], ,[place] [address] ID Date Data Source [id number] 05/02/2021 05:16:00 AM EDT [facility] Name Value Range Interpretation Code Description Data Arabella rce(s) Supporting Document(s) Hemoglobin 9.7 g/dl 12.0-16.0 Below low normal [facility] The above 1 analytes were performed by [facility] [id number] [facility], ,[place] [address] ID Date Data Source [id number] 05/02/2021 05:16:00 AM EDT [facility] Name Value Range Interpretation Code Description Data Arabella rce(s) Supporting Document(s) Hematocrit 31.7 % 37.0-47.0 Below low normal [facility] The above 1 analytes were performed by [facility] [id number] [facility], ,[place] [address] ID Date Data Source [id number] 05/01/2021 11:33:00 PM EDT [facility] Name Value Range Interpretation Code Description Data Arabella rce(s) Supporting Document(s) Care Plan [facility] KRZYNv0lOqVHVhYm96/GNApbZHPrr4RoXVtoSXe7MPqtKIDrI3JuNWH7zF4yCFF2TDfXNdNsNkFoNBQh [facility] [file] YNCg== ID Date Data Source [id number] 05/01/2021 06:29:00 PM EDT [facility] Name Value Range Interpretation Code Description Data Arabella rce(s) Supporting Document(s) SARS coronavirus 2 RNA [Presence] in Res piratory specimen by MELINDA with probe detection NEGATIVE [facility] This lab was ordered by [facility] a nd reported by [facility]. ID Date Data Source [id number] 04/28/2021 06:15:43 PM EDT [facility] Name Value Range Interpretation Code Description Data Arabella rce(s) Supporting Document(s) Nursing Note [facility] [id number]/[id number]JPN1mI8pZDK2GYsTBjLjFiQcIOMx lbm [file] [id number] ID Date Data Source [id number] 04/28/2021 04:30:15 PM EDT [facility] Name Value Range Interpretation Code Description Data Arabella rce(s) Supporting Document(s) Discharge Summary [facility] [id number]/OYBdvOMCtt3IlTWofWTn0JSbyHLOpJ6LeFGA7vS4sDDJ0JJsITjEsTnUrIXSs lbm [file] ez+XKyna+W/Jpl302+V2+mk/vp platforms+pdfxMnrIXbuyUTG [file] AgICAvRjMgMjUgMCBSDQogICAgICAvRjQgMjggMCBS NYusUHDtAQFuNpAkIhZkAPQJTx9NIsNkQZDeQI5seeMpyHV4IBS+Tz2SMBDrGV0VvGNFL1AzlCWdCNdv Y8EPKY2KNED5IJ2RgOUpZU6DvRWGM7EslWYvNq1iGJYde2WfGd8hK3AHDHOEVMIrFEovZRdrUYLmXRg4 U2H4CEYhE1BHM777zQZpvZr5Wg2uK2IZJGmRIsNzTK xfSFwpPPQnTZv2I0D4OGJbT2SSX7AbGiIaekSxX1O+XxKlNNIOUE2MWKDKFYu5L8C1oOZsU9T6mHjRsE O2YL5ULB2BnEPcdSUgf30+YkXJXoPaFJSjP5JWYEWHSoWsERmbADhfLJMsCAn7Y3A9OEXfO6SUF3faI2 h0ZW4+XwZDKxVbXKAiKv1VLySgLu0RUmXlUG2odg2C EbRzOGNfQmmIGdv8W6moojo5gNSiGeJ3L0G1QoA8mVToFQ7IE3H7nOVnLCP8TRLsmOG+Uc6Yh5WcPVGp CAs2W1lvCVNkYNGnSmIbnW92G++3joovoLI1H3x7FHXMmABswFzJkaYmI6eZRYR3m5B1DCx/Ko4TKGC4 hFx8vQZvLSEzMPd1wJ2kjVm9UxHtBO16VKZdPDgvmQ 3aNmj8E9Ydh3LoZj8lNt0vmTTwJo8EIjKiRGB9jgMxFkJDHbE8gOacodqeLMH2B5g6lLL6Tc30o6wqpd Nzm1McBxM0EVkwZOYkXxRfgxWwPWP0ifYloD7rrdYcVg8UBAMaWIuwxaPiSiFSWh4LOsCiMM94NdshiQ 1ldGE+DQogICAgICAgICAgICAgICAgICAgICAgICAg ICAgICAgICAgICAgICAgICAgICAgICAgICAgICAgICAgICAgICAgICAgICAgICAgICAgICAgICAgICAg ICAgICAgICAgICAgICAgDQogICAgICAgICAgICAgICAgICAgICAgICAgICAgICAgICAgICAgICAgICAg ICAgICAgICAgICAgICAgICAgICAgICAgICAgICAgIC AgICAgICAgICAgICAgICAgICAgICAgICAgDQogICAgICAgICAgICAgICAgICAgICAgICAgICAgICAgIC AgICAgICAgICAgICAgICAgICAgICAgICAgICAgICAgICAgICAgICAgICAgICAgICAgICAgICAgICAgIC AgICAgICAgDQogICAgICAgICAgICAgICAgICAgICAg ICAgICAgICAgICAgICAgICAgICAgICAgICAgICAgICAgICAgICAgICAgICAgICAgICAgICAgICAgICAg ICAgICAgICAgICAgICAgICAgDQogICAgICAgICAgICAgICAgICAgICAgICAgICAgICAgICAgICAgICAg ICAgICAgICAgICAgICAgICAgICAgICAgICAgICAgIC AgICAgICAgICAgICAgICAgICAgICAgICAgICAgDQogICAgICAgICAgICAgICAgICAgICAgICAgICAgIC AgICAgICAgICAgICAgICAgICAgICAgICAgICAgICAgICAgICAgICAgICAgICAgICAgICAgICAgICAgIC AgICAgICAgICAgDQogICAgICAgICAgICAgICAgICAg ICAgICAgICAgICAgICAgICAgICAgICAgICAgICAgICAgICAgICAgICAgICAgICAgICAgICAgICAgICAg ICAgICAgICAgICAgICAgICAgICAgDQogICAgICAgICAgICAgICAgICAgICAgICAgICAgICAgICAgICAg ICAgICAgICAgICAgICAgICAgICAgICAgICAgICAgIC AgICAgICAgICAgICAgICAgICAgICAgICAgICAgICAgDQogICAgICAgICAgICAgICAgICAgICAgICAgIC AgICAgICAgICAgICAgICAgICAgICAgICAgICAgICAgICAgICAgICAgICAgICAgICAgICAgICAgICAgIC AgICAgICAgICAgICAgDQogICAgICAgICAgICAgICAg ICAgICAgICAgICAgICAgICAgICAgICAgICAgICAgICAgICAgICAgICAgICAgICAgICAgICAgICAgICAg QPZySZFwCMXgEVRrWWPbLOUgVESyWLGfEPh4S2laIBSpHDYxOG0xEKq5Ho3+HShCVeNxRXH2nuOeoL7W EX2pk6PdGNelVRCpz4RdMTm5XZ0OWVLkSHvoYS6NSR eoit7BQUNuLGUkxMDNp6ncTyJkSMB7YJHlWaneLR6DEYQwK3igwgPxPXXtBKSOFApfYBCWUQeyAFZNCH LvZOTuAzHjVqNhJTRtNS6ZZSJnC657lzYrDI4ZDv7YFqEdGA4uhs7QYoAwWKVeHkgWQgp5XXamEL8FdO WbdYIvOZVwQQHBDtNhK5kfg5XuRfBiELITHMkyIC5Q p8HyyNGvJMj+Nq8QKX4uu5GoEEtlRQWzJC2jjy7KVWuZBlGwN6RllRxzCOBjv1FxWGWfAHKKeU1oUKE2 BBS2LBTgtcMrU2bowc54TQFXQLMluPA0PhHpMjEmMqFoRVX2HjarFN0eWRzcLI6XBJW6SXpvYQYqBGXx F4pMFtFaAXbvNCZdtLwvGB4KIcAaU0UkcrQecGKkRI AwIFINCj4+NGxbcjAnZzjRKcR0CMKyo9UeUZt4XE3HATLdDBbyHI0PWQAeiG6tDJzwOL7EIoMuVuNhDT SQXqAdX89urBDzODe5K1GzUnAtWASqQbfgRHAlMPhoMyYoLABgRnLoSLqwTD6+ID4+GHycEK7OZPnfwb KvULHkTu6UJQCwBDHnHC1zEAWcCMNvC3Y9tDqwYMBZ JtGbH4vufzfaTP5aMGJlB544pVdwvgRjNCL4MVMuTi8YTBEvPBD8ADEhjBFvOfFmCVEZSOxsVM4DeCXi LRO5uV1kSRljVFPyXRVcW2fUBgAltIbkKI18uMrqtpWjuNJpMDv+Zi5EZZ7eg6WkZVc8iiCjELjnYRJ5 YGxrFSIcTRCbCNHxWZK4WTI1BTFCCtCqLJHwAHDzIV hvQXTlFRIhgd3KNUPnOHXdMYR4KkCyIOJuTCQtXGqbNAGmYVTtAZQ0SGTlABKfBN5MXfPnBLLmBJTvKF bfFZUfLDBiuq0DPWPwYGHmKzA9OHXxNFVjFTJgGAznJRNyVLBtKwhiAMCrTHApHG0TBxAwLDVoXPD3MM BbUIMzSVDjrc7XIMKgICSvUTxiDaOsRDVvJMSaSUia XLHjLLC4MbUdZHQdBUFqMS0SKkTqFPTwGDh3TxAaSHPtHYQaen5KBZKbFVNmHGr9ZCKpPNIzTGLaBIqb FCWkVTJnCMcvYIZgJDGqWT8FCqCvOUBkISIcWwHwGOAkAZEetx2CXAMrOPNyQaFiKwAjUREyRYFfZQeb JKKbCUJ4BRz6BEGdUZPlVX0MPfTuXCXcZTYqSPyhQC EsRNGxdh0FOZEoBMIkIVQ8CDMuNADuNQVdKYdfLRPhDXO7UHO4JRUnFGQnPT2KLiSaOBGsOYW6LGXfWT TxUYOnbt9JTXNaJMZcSAyvFSLxITLlVBDqQSuiKKQhEUY8MEmiWNFsSMMwYO9DGjDvGBLaAQfaSZNmQL QzPMVxvc4TSISxBWLyJmC6LJHsYJYzTZJaIIxyDODs UUU6GhJ2MQIgFDTpHV5HHuXfUGJvBVw5ZrBdCBUdATBxma3TMRVuVSXmKWPdVTSiHJVvGBHwWZerBOEb PVE0DWlhIRThOMKaIJ0KIaUxQWYaDPp2ALQxRLBjUNFotn9IANKcGUWiIHm9SEQtQXAgXISjVNbcFZZm OXHaPBW2XFUiSCLqDN3IQnMtUMPcQfEpVNIcOZEpFI Mkqi6QUTBgSPFgVUCjKBKaPYGgENLfRSndOBMlKGHbCBC0VYPrMSZeME2UVoAwXFXjIgNaEYCuOFKfRX Ftla3YGOCcOZFcOrI4OCZiGGZmZDThNWpbKNDqIDDxDPUoKCQvWTGjTA7SCtCoNBzoXFCWUld6HBtoG8 s4WHNoWa9BT0Fte3DfKnHjNGVQJTanXE2rcbMcAHZw Cc3AE4zANzuxBBEvOgvgItAvXmZ7WyWlDLP8MRizUXkiZJC3MHMeHs0qXTBlYmVcUODbJCUvLqMtLeS2 GTZxFNOzI3G0LGk6EOFbHsBoIE4YIi1RUzK1WNI2kVAyWq9EGzP8PVDWOdRrDM8WTLh= ID Date Data Source [id number] 04/28/2021 03:03:23 PM EDT [facility] Name Value Range Interpretation Code Description Data Arabella rce(s) Supporting Document(s) Care Plan [facility] YNGFVd4jZyFPJuDv13/ZEFzrDDDda2WlVUyoEPu7MJtwOAHrU3QdURU7yQ2oJCZ2OFxXKmYhRtUpKDMe lbm [file] DQo= ID Date Data Source [id number] 04/28/2021 12:53:00 PM EDT [facility] Name Value Range Interpretation Code Description Data Arabella rce(s) Supporting Document(s) Glucose, Fingerstick 131 mg/dl 70-110 Above high normal [facility] The above 1 analytes were performed by [facility] [address], ,[place] [address] ID Date Data Source [id number] 04/28/2021 11:25:13 AM EDT [facility] Name Value Range Interpretation Code Description Data Arabella rce(s) Supporting Document(s) Nursing Note [facility] KMYRIz0bKhBTZrYw93/JBDclLVUxj3McGSphDPm2HKwaXWKvE7JvFRU3dM0iCLE9UOxKJfMbBrMmWRIr lbm WySagMFeZzVAFmJlgEJlEhCJznOjdtkMNzSR8HiRO6QXQkC64xGLNcNDLwQ9EoOSohQa0+UWznQNV9yf DorV1YAYKHSKhEPfYRzw/U/iZDFnSK1n9yNQDtMMDBGZQJvXn5HXMLTcTwINmau7995h0cOP5RSSWPor QdeWY+zzeHvQHwfz+hpSVjDPLP+lFbATdjePsGKrVE [file] KMEBXoRnEMJjKFvwIKUEOb6J ID Date Data Source [id number] 04/28/2021 06:07:30 AM EDT [facility] Name Value Range Interpretation Code Description Data Arabella rce(s) Supporting Document(s) Nursing Note [facility] PIXLNp4kSzCGJcXx49/ZMZbhSMRlm3CrGWogFYy4OMksNGTdR6OdCXK4wJ2mZKG1NKqJBsGxUsHkGERj lbm [file] DeNAXcIYLbHUy6IPPgEeUpLWB2ZwAmWr7qQAJFRr8+AZbnrJMalQadUSLMYaVcPPR5EOzoRFWYTw7F ID Date Data Source [id number] 04/28/2021 05:35:00 AM EDT [facility] Name Value Range Interpretation Code Description Data Arabella rce(s) Supporting Document(s) Glucose, Fingerstick 72 mg/dl 70-110 Normal (applies to non-num madiha results) [facility] The above 1 analytes [facility] [address] HallmanAcct# [id number],[place] [address] ID Date Data Source [id number] 04/28/2021 05:43:00 AM EDT [facility] Name Value Range Interpretation Code Description Data Arabella rce(s) Supporting Document(s) AST 126 IU/L 15-37 Above high normal [facility] Sulfasalazine and sulfapyridine have the potential to falsely depressAspartate Aminotransferase results. Baseline values before medication administration are recommended. ALT 193 IU/L 13-56 Above high normal [facility] Sulfasalazine and sulfapyridine have the potential to falsely depressAlanine Aminotransferase results. Baseline values before medication administration are recommended. Alkaline Phosphatase 172 mIU/ml 50-136 Above high normal [facility] Total Bilirubin 1.30 mg/dl 0.20-1.00 Above high normal [facility] Blood Urea Nitrogen 7 mg/dl 7-18 Normal (applies to non-nume ny results) [facility] Creatinine 0.75 mg/dl 0.51-0.95 Normal (applies to non-numeric resul ts) [facility] N-Acetylcysteine (NAC) and Metamizole em ve the potential to falselydepress Creatinine results. Baseline values before medication adminstration are recommended. Patients undergoing treatment with phenindione will have falselydepressed results. Patients on phenindione therapy should be tested with an alternativeCREA method.Toxic levels of acetaminophen may lead to falsely depressed results forpatient samples. Glomerular Filtration Rate 86.00 mL/min/1.73m2 [facility] GFR Reference Ranges:Normal Function or [...] of Health and the National KidneyFoundation. The Elsie method used in calculating this result is traceable to [employer] standards. Glucose 77 mg/dl 70-110 Normal (applies to non-numeric resul ts) [facility] Sulfasalazine has the potential to false ly depress Glucose results. Sulfapyridine has the potential to falsely elevate Glucose results. Baseline values before medication administration are recommended. Calcium 8.2 mg/dl 8.5-10.1 Below low normal [facility] Total Protein 6.5 g/dl 6.4-8.2 Normal (applies to non-numeric re sults) [facility] Albumin 2.9 g/dl 3.4-5.0 Below low normal [facility] Sodium 135 mEq/L 136-145 Below low normal [facility] Potassium 3.6 mEq/L 3.5-5.1 Normal (applies to non-numeric resul ts) [facility] Chloride 108.0 mEq/L 98.0-107.0 Above high normal [facility] Anion Gap 8.7 [facility] Carbon Dioxide 21.9 mMol/L 21.0-32.0 Normal (applies to non-numeric results) [facility] The above 16 analytes were performed by [facility] [address],[id number],[place] [address] ID Date Data Source [id number] 04/28/2021 04:59:00 AM EDT [facility] Name Value Range Interpretation Code Description Data Arabella rce(s) Supporting Document(s) WBC 5.64 x1000/ul 4.80-10.00 Normal (applies to non-numeric re sults) [facility] RBC 3.80 x1Mil/ul 4.20-5.40 Below low normal [facility] Hemoglobin 9.9 g/dl 12.0-16.0 Below low normal [facility] Hematocrit 31.6 % 37.0-47.0 Below low normal [facility] MCV 83.2 fL 81.0-99.0 Normal (applies to non-numeric resul ts) [facility] MCH 26.1 pg 27.0-31.0 Below low normal [facility] MCHC 31.3 g/dl 32.2-37.0 Below low normal [facility] RDW 14.4 % 11.5-14.5 Normal (applies to non-numeric resul ts) [facility] Platelet Count 253 x1000/ul 130-400 Normal (applies to non-numeric results) [facility] MPV 10.5 fL 9.4-12.4 Normal (applies to non-numeric resul ts) [facility] Neutrophils 56.6 % 40.0-74.0 Normal (applies to non-numeric resu lts) [facility] Lymphocytes 32.1 % 19.0-48.0 Normal (applies to non-numeric resu lts) [facility] Monocytes 7.6 % 3.4-9.0 Normal (applies to non-numeric resul ts) [facility] Eosinophils 3.0 % 0.0-7.0 Normal (applies to non-numeric resu lts) [facility] Basophils 0.5 % 0.0-2.0 Normal (applies to non-numeric resul ts) [facility] Immature Granulocytes 0.2 % 0.0-0.5 Normal (applies to non-nu meric results) [facility] Nucleated RBCs 0.00 % 0.00-0.20 Normal (applies to non-numeric r esults) [facility] Abs. Neutrophils 3.19 x1000/ul 1.92-8.31 Normal (applies to non-numeric results) [facility] Abs. Lymphocyte 1.81 x1000/ul 1.20-3.70 Normal (applies to non-n umeric results) [facility] Abs. Monocytes 0.43 x1000/ul 0.14-0.97 Normal (applies to non-nu meric results) [facility] Abs. Eosinophils 0.17 x1000/ul 0.00-0.76 Normal (applie s to non-numeric results) [facility] Abs. Basophils 0.03 x1000/ul 0.00-0.22 Normal (applies to non-n umeric results) [facility] Abs. Immature Gran. 0.01 x1000/ul 0.00-0.02 Normal (appl ies to non-numeric results) [facility] Abs. Nucleated RBCs 0.00 x1000/ul 0.00-0.02 Normal (appl ies to non-numeric results) [facility] The above 24 analytes were performed by [facility] [address], ,[place] [address] ID Date Data Source [id number] 04/28/2021 02:02:18 AM EDT [facility] Name Value Range Interpretation Code Description Data Arabella rce(s) Supporting Document(s) Care Plan [facility] JTBPJe4hJpJOPjXx58/YAZbpFIJct0JjCApgMQz1JVzhGVLoK4QlQMK6oU0lJQQ4YJjBCtZkYcCcEFUd lbm [file] hJT+zwSvrBDo+sW1MA1fh1dd1vwZe9no6XYvT00L/carlos a/9UpGKTmntXzb9wNyqIkGVCvitoArB4PhY68V [file] Q9QQFFErSmQK5HBRl= ID Date Data Source [id number] 04/28/2021 12:07:00 AM EDT [facility] Name Value Range Interpretation Code Description Data Arabella rce(s) Supporting Document(s) Glucose, Fingerstick 80 mg/dl 70-110 Normal (applies to non-num madiha results) [facility] The above 1 analytes were performed by [facility] [address], ,[place] [address] ID Date Data Source [id number] 04/27/2021 07:16:45 PM EDT [facility] Name Value Range Interpretation Code Description Data Arabella rce(s) Supporting Document(s) Nursing Note [facility] VRSZWa3oZdXJZxFt43/GUAmvPBJwq6KgHZorDVf0EVsyZAKaU1FtTHF3eF2pQRR2PVyEUqInYaQtDBZ8 lbm [file] N3tAQrMu7EOdOfCVBCYnXlIM6RNEu= ID Date Data Source [id number] 04/27/2021 05:52:00 PM EDT [facility] Name Value Range Interpretation Code Description Data Arabella rce(s) Supporting Document(s) Glucose, Fingerstick 81 mg/dl 70-110 Normal (applies to non-num madiha results) [facility] The above 1 analytes were performed [facility] [address], ,[place] [address] ID Date Data Source [id number] 04/27/2021 03:06:47 PM EDT [facility] Name Value Range Interpretation Code Description Data Arabella rce(s) Supporting Document(s) Progress Notes [facility] OCETXv9pAdXGGiEl80/HMRfdBEOdp0OqPNpwZYo0YPplFUNoA9XpZZR7vO4qPLU4UFmNYyYcShTkUSR3 lbm [file] qtZCVVHs1Z ID Date Data Source [id number] 04/27/2021 02:37:54 PM EDT [facility] Name Value Range Interpretation Code Description Data Arabelal rce(s) Supporting Document(s) Progress Notes [facility] XKDSMa2dIlGCXpSu22/GFHjpSVWwt5QmOQzjNRd0UWncUFQeQ5YjGAZ8wL3pMZI5BNsMSeLcSuKqXWJ5 lbm [file] IArpvHZvgBmnZCKLZiUfSlb9EQzsXOYHHh5Q ID Date Data Source [id number] 04/27/2021 02:46:00 PM EDT [facility] Name Value Range Interpretation Code Description Data Arabella rce(s) Supporting Document(s) Ferritin 17.7 ng/ml 3.0-388.0 Normal (applies to non-numeric resul ts) [facility] The above 1 analytes were performed by [facility] [address] [facility], ,[place] [address] ID Date Data Source [id number] 04/27/2021 02:46:00 PM EDT [facility] Name Value Range Interpretation Code Description Data Arabella rce(s) Supporting Document(s) Iron Saturation 42 [facility] Iron 186 ug/dl 50-170 Above high normal [facility] Patients treated with metal-binding drug s (e.g deferoxamine) may havedepressed iron values. Total Iron-Binding Capacity 440 ug/dl 250-450 Norm al (applies to non-numeric results) [facility] The above 3 analytes were performed by [facility] [address], ,[place] [address] ID Date Data Source [id number] 04/27/2021 02:46:00 PM EDT [facility] Name Value Range Interpretation Code Description Data Arabella rce(s) Supporting Document(s) AST 350 IU/L 15-37 Above high normal [facility] Sulfasalazine and sulfapyridine have the potential to falsely depressAspartate Aminotransferase results. Baseline values before medication administration are recommended. ALT 301 IU/L 13-56 Above high normal [facility] Sulfasalazine and sulfapyridine have the potential to falsely depressAlanine Aminotransferase results. Baseline values before medication administration are recommended. Alkaline Phosphatase 227 mIU/ml 50-136 Above high normal [facility] Total Bilirubin 1.50 mg/dl 0.20-1.00 Above high normal [facility] Blood Urea Nitrogen 8 mg/dl 7-18 Normal (applies to non-nume ny results) [facility] Creatinine 0.70 mg/dl 0.51-0.95 Normal (applies to non-numeric resul ts) [facility] N-Acetylcysteine (NAC) and Metamizole em ve the potential to falselydepress Creatinine results. Baseline values before medication adminstration are recommended. Patients undergoing treatment with phenindione will have falselydepressed results. Patients on phenindione therapy should be tested with an alternativeCREA method.Toxic levels of acetaminophen may lead to falsely depressed results forpatient samples. Glomerular Filtration Rate >90.00 mL/min/1.73m2 [facility] GFR Reference Ranges:Normal Function or [...] of Health and the National KidneyFoundation. The Elsie method used in calculating this result is traceable to [employer]CO standards. Glucose 86 mg/dl 70-110 Normal (applies to non-numeric resul ts) [facility] Sulfasalazine has the potential to false ly depress Glucose results. Sulfapyridine has the potential to falsely elevate Glucose results. Baseline values before medication administration are recommended. Calcium 8.6 mg/dl 8.5-10.1 Normal (applies to non-numeric resul ts) [facility] Total Protein 7.3 g/dl 6.4-8.2 Normal (applies to non-numeric re sults) [facility] Albumin 3.5 g/dl 3.4-5.0 Normal (applies to non-numeric resul ts) [facility] Sodium 136 mEq/L 136-145 Normal (applies to non-numeric resul ts) [facility] Potassium 4.5 mEq/L 3.5-5.1 Normal (applies to non-numeric resul ts) [facility] Chloride 108.0 mEq/L 98.0-107.0 Above high normal [facility] Anion Gap 12.0 [facility] Carbon Dioxide 20.5 mMol/L 21.0-32.0 Below low normal [facility] The above 16 analytes were performed by [facility] [address], ,[place] [address] ID Date Data Source [id number] 04/27/2021 12:43:26 PM EDT [facility] Name Value Range Interpretation Code Description Data Arabella rce(s) Supporting Document(s) Consults [facility] XXZKSq1sTxLZQkCr62/WLVmmCVNpe5ObZWpqMDh1BZntZMRxX2LhPLT5rH8mNIF0EUrCEwPrOnKmXSB0 [facility] [file] AgICAgICAgICAgICAgICAgICAgICAgICAgICAgICAg ICAgICAgICAgICAgICAgICAgICAgICANCiAgICAgICAgICAgICAgICAgICAgICAgICAgICAgICAgICAg ICAgICAgICAgICAgICAgICAgICAgICAgICAgICAgICAgICAgICAgICAgICAgICAgICAgICAgICAgICAg ICAgICANCiAgICAgICAgICAgICAgICAgICAgICAgIC AgICAgICAgICAgICAgICAgICAgICAgICAgICAgICAgICAgICAgICAgICAgICAgICAgICAgICAgICAgIC AgICAgICAgICAgICAgICANCiAgICAgICAgICAgICAgICAgICAgICAgICAgICAgICAgICAgICAgICAgIC AgICAgICAgICAgICAgICAgICAgICAgICAgICAgICAg ICAgICAgICAgICAgICAgICAgICAgICAgICANCiAgICAgICAgICAgICAgICAgICAgICAgICAgICAgICAg ICAgICAgICAgICAgICAgICAgICAgICAgICAgICAgICAgICAgICAgICAgICAgICAgICAgICAgICAgICAg ICAgICAgICANCiAgICAgICAgICAgICAgICAgICAgIC AgICAgICAgICAgICAgICAgICAgICAgICAgICAgICAgICAgICAgICAgICAgICAgICAgICAgICAgICAgIC AgICAgICAgICAgICAgICAgICANCiAgICAgICAgICAgICAgICAgICAgICAgICAgICAgICAgICAgICAgIC AgICAgICAgICAgICAgICAgICAgICAgICAgICAgICAg ICAgICAgICAgICAgICAgICAgICAgICAgICAgICANCiAgICAgICAgICAgICAgICAgICAgICAgICAgICAg ICAgICAgICAgICAgICAgICAgICAgICAgICAgICAgICAgICAgICAgICAgICAgICAgICAgICAgICAgICAg ICAgICAgICAgICANCiAgICAgICAgICAgICAgICAgIC AgICAgICAgICAgICAgICAgICAgICAgICAgICAgICAgICAgICAgICAgICAgICAgICAgICAgICAgICAgIC AgICAgICAgICAgICAgICAgICAgICANCiAgICAgICAgICAgICAgICAgICAgICAgICAgICAgICAgICAgIC AgICAgICAgICAgICAgICAgICAgICAgICAgICAgICAg ICAgICAgICAgICAgICAgICAgICAgICAgICAgICAgICANCjw/eRXtU4reaOKegrY2A2yqOw7PFu9VHZ6p f8YjDIErIHdxmcIkJocUJlWuDZLlVokBYev6TIkqVN2DcEDxV8OgG6LcWBqzKB2GYZWnXPBqdVOzOJOp EYPsSzR0ZBLaGQmgJS7DcKToJPwyYOLzRYKbAzKnBY UwZTQjIZZmPBMxVTKZUDGeRYGhTeUwHQOwWGRzBPyxUMZMDT0RBkRcC2LcdG76YWaJYw0+DQplbmRvYm zLRmCyQFFst8RdNZt7YR6CAECwNwdxq1AnIGUcOWIJKIggRT5ANPM7LTXdEAGyUu0OHBSgN542euXjSN 5LSi7LOpCxZF7yhm8OAKSrQZKsQgmTEkn5EDsrDV6Z bLYoHBeJw39feUw1jtZqyEURpYlcpVGsHIRqX9GhFsVcWCYRWTAvuUO8HwP6VsNfWsTyVLW5VWeqOZ6b XVtrPJ7MFUL9SPhdEUBzWKVnU0lNVpDxFTlyNRQlhPvtDL4CCfJwC2TckeNidUP9BKRmNTALXb7+DQpl auImHtbILoGoMLSfw8TiMOq2TE3ZIQNcQAwwHK1AMO UrwZ3eFWozJM1UZpHwWZEjWHAPCkSxV14wbJPdHBv1W5VqQxCmJIPdLvytCAKfAWazLwHmXCLnKlNnJV ogID4+ID4+FJlcRL5PQDjjplAbCCDsEs3HVAFvTKFxAE2bPVMzNHEgI0P2rAtoNBWSNvZfK1yosrxxPV 4hKXMyT494aZcpyaVjBGTvRGYyUh2XANZyPAU2QRYe oZZuPyxgARGGLEbkHQ7OfOLoDVJ8qA3kTOtjONRbVDKxD5aKKcMopOkgBO79tHkuwgXwrYXeNXz+Pg0K MT3tr1NrYAw1ftNvQErhNUYaLQpbELSeZNUuMLDjNYU8RRI7ZHPOSgHaWHDeLCTzFRfnCFWfIUNynr5P ASQhLLTrBoX4FoUvMVQoNFFkGBbyEFUlOTT2PDUtCD KnEYRiNH1FRiJnCDRuSOXcLXucIBAhJDHnhb4EPOMtKNDnGuXrOCWjGBBpYWQxOBvgROVwMOLgYZB1SO OwTLHyVM0STfHvBKTxQVYmAAwqWOLfMYSfoj3DGQNbZXDrEqLcTdGmWFWhASUwWPymHOVyNXH6BbTbNP JkLIUhVF3ZLiXwQGAlYUv7VMOyDXFpXDHejf5SRBLk NQGzKUM3PxZcMLRcZHEfGFerENKhKOZeYXE3FFVqYZKrZC6INpZrQBShRCLbDvNoPUOeJHQxwu3OPFLe JSRlOzQ4CRPmAIXhWYPqAJfnXGNmNFS0CYb0QFQfKDRqWS6DItDpUDSkEWN8HCYaWBIuGNDuox4RJQPo HIVoJOwgAEXaFUIoARMjMXecDCFaUZD4WIL5RCIyXF EaFJ3YYnBxCTOcSBwiRRTrLLZfPVMjpg0CRYJqPIMgEzD0PxJaHTZmSFZuDXbcSOJmKUO5EVo6AOZwOQ MgRV0YKrQfRCByNJn7OdUnHWOfMVArsz5LXOHzSMGiJBWhUOLcPMDxVXBlZIvuANFmRDT3IXM5EMZsHP YmNK9NYlHoSTRzUJw0HmJlTAOiUFQeae4QNJIvTAZz WTv6PJLjQXAlFQKgOEorWKSkHNEuPXfiAOKzZNMnSM3GMuVyIORuMoDtIvyrSEMzMWMibh2QXNQrGITe PSCiIJPuTCJqOSIxCYvhNNKnWBTxFWG9MYHnPQJcUN5GNlIrJAPvPnC5MwEiCDEmWLJwei2UVMBbFWPa IJW5OTFeGMReQMOfVYqrPHUtGFA4XoO9ITYrMATnMG 5RPsEjDIEvPsF4FGrwILBgCZAedd5MOTAyMJOlBFw8QaScUJBcQTVdINeyLHBjPTP6Rni3YMLfSHCgME 5ZIzGgCUPgIkO5LQFrRNBcQTOlos2KOAJnTQVfSbV7NVQjBSHyONOaOOcpAZMmSKO4LWWuKGCiDGVoQH 6NRiVbDUPwAur3CDfrATFlCWHrnr8HQVNuBZEuWIC7 HTHqBQYvYECmTUttKHDbFRQ0PrA3ZBQyMAIxQG6JFbFmSNsjECIKFic9MUppM3u2ZRS5Zu0XU1Fyt0Bx MGMxPYDVEZznSJ3aseKeKVJfVd5VX9vJVptoFxK6OZOmRVegBLV9DSHaHyL0OLLgMQSgDiehSfkqHV4r ZMVpMxCnKYXgSTZyFgO0EPBwGWR3CVZgAhCzGZR1Ge YsUmEjML8GUg2JEsG1JFO7nGRwUn2VTpr3AMpDEcVxRO6VFXb= ID Date Data Source [id number] 04/27/2021 12:30:00 PM EDT [facility] Name Value Range Interpretation Code Description Data Arabella rce(s) Supporting Document(s) Amphetamines, Urine Negative Negative Normal (applies to non-nume ny results) [facility] Barbituates, Urine Negative Negative Normal (applies to non-numer ic results) [facility] Benzodiazepines, Urine Negative Negative Normal (a pplies to non-numeric results) [facility] Cannabanoids, Urine Positive Negative Abnormal (applies to non-numeric results) [facility] Cocaine, Urine Negative Negative Normal (applies to non-numeric r esults) [facility] Opiates, Urine Positive Negative Abnormal (applies to non-numeric results) [facility] PCP, Urine Negative Negative Normal (applies to non-numeric resul ts) [facility] Methadone, Urine Negative Negative Normal (applies to non-numeric results) [facility] DrugMinimum Detection Threshold (Conc.)A [id number] ng/mLBarbiturates 200 ng/mLBenzodiazepines 200 ng/mLCannabinoids 50 ng/mLCocaine Metabolites 300 ng/mLOpiates 300 ng/mLPhencyclidine (PCP) 25 ng/mLMethadone 300 ng/mLOxycodone 100 ng/mLNOTE: Phentermine may interfere with the amphetamine analysis.NOTE: This urine drug analysis is a screening procedure. Presumptivepositive results are unconfirmed.[facility] recommend submitting positive specimens to areference laboratory for confirmation. Oxycodone, Urine Negative Negative Normal (applies to non-numeric results) [facility] The above 9 analytes were performed by [facility] [id number] [facility] ,[place] [address] ID Date Data Source [id number] 04/27/2021 11:48:00 AM EDT [facility] Name Value Range Interpretation Code Description Data Arabella rce(s) Supporting Document(s) Glucose, Fingerstick 78 mg/dl 70-110 Normal (applies to non-num madiha results) [facility] The above 1 analytes were performed by [facility] [id number] [facility] ,[place] [address] ID Date Data Source [id number] 04/27/2021 08:10:31 AM EDT [facility] Name Value Range Interpretation Code Description Data Arabella rce(s) Supporting Document(s) Care Plan [facility] KFRLQg3nKqJYIbFz65/KJUmjLCNas5GeNPfiBRa8IVbdWJIlR4XlLUJ7wF3kDSL5IIsSCxOxPuQsCHM6 lbm MgVbpHSfUxNBCxSmgZQuXtRFwqXgxafXUiTW3QlUS8BYBuX91qYTCoONGnR5OjYIu9Py9+NIvpSQP9fi MhrD4KCQWtBOif9wGBai/Yf+QbEgUGhlD1hlSXug9PLuc7CZMOr8qzR/JMG8f8PooxIuts22Jk4GClHe hTu5NQUy9RZnXsD3E+3UFLhoQQyP+Py6Sg7R/g9Suo vPH4FYdrZJS4oFODnO5gErF294ACXnIKzxo1KEnd4TNNSKOQPDvYX8IRodM0THmQBJlEPAeT7N0E1OTF Hn4TZIv0JM3Q4lunSHdNceekqg3Z50DkswNE5PRkqBevQjJvnTQxIDgZUXiugEdDqEcMuYRot7SfpF7v f8UAXeC6biaJod0MppZRiXVik5D0xVvIR55OGjCZMj u3F7cUYRzfj8hlxIhY4SI8Q/GJg4CNjTkOM7oZPFQbTqMDGf5zm3vAOQiWbPoREAWX63Xu3CxYwBk3Bc 2X1fE1VsjVke9VWFGfzaplzKhHF/jtYD1A3NrXxMlaYYWvKmX8x8zT0tfwfVCfJuSV/4mds0nq5SrQ19 ql+PzWLDcuxisndbOurI/98rb5cMs0qSiQG4/dmlsr QI3FpoaRQXDyl1JypgvC2tyTUgfWmcebQFngLh7Zh0P66NagLE8qH7+DYuS8FCYQm4mAKjX9rFWAIUUB N5doXLQ9sA2vtZfJDM4K4DscPTqmKFML1Bnzv7aoI4MbgUknPCfQzkQgey6zH/Madonna/W51f82yUlp6uo4 [file] [id number] ID Date Data Source [id number] 04/27/2021 06:03:19 AM EDT [facility] Name Value Range Interpretation Code Description Data Arabella rce(s) Supporting Document(s) Nursing Note [facility] GJGLTu3lZoCNRzGe74/ERFwiMHVlk1ViPYioVTg2QDipSWPzE6UhDER0tZ8nIEF7HOfDHbAwNeTzSUJ6 lbm [file] ICAgICAgICAgICAgICAgICAgICAgICAgICAgICAgIC AgICAgICAgICAgICAgICAgICAgICAgICANCiAgICAgICAgICAgICAgICAgICAgICAgICAgICAgICAgIC AgICAgICAgICAgICAgICAgICAgICAgICAgICAgICAgICAgICAgICAgICAgICAgICAgICAgICAgICAgIC AgICAgICANCiAgICAgICAgICAgICAgICAgICAgICAg ICAgICAgICAgICAgICAgICAgICAgICAgICAgICAgICAgICAgICAgICAgICAgICAgICAgICAgICAgICAg ICAgICAgICAgICAgICAgICANCiAgICAgICAgICAgICAgICAgICAgICAgICAgICAgICAgICAgICAgICAg ICAgICAgICAgICAgICAgICAgICAgICAgICAgICAgIC AgICAgICAgICAgICAgICAgICAgICAgICAgICANCiAgICAgICAgICAgICAgICAgICAgICAgICAgICAgIC AgICAgICAgICAgICAgICAgICAgICAgICAgICAgICAgICAgICAgICAgICAgICAgICAgICAgICAgICAgIC AgICAgICAgICANCiAgICAgICAgICAgICAgICAgICAg ICAgICAgICAgICAgICAgICAgICAgICAgICAgICAgICAgICAgICAgICAgICAgICAgICAgICAgICAgICAg ICAgICAgICAgICAgICAgICAgICANCiAgICAgICAgICAgICAgICAgICAgICAgICAgICAgICAgICAgICAg ICAgICAgICAgICAgICAgICAgICAgICAgICAgICAgIC AgICAgICAgICAgICAgICAgICAgICAgICAgICAgICANCiAgICAgICAgICAgICAgICAgICAgICAgICAgIC AgICAgICAgICAgICAgICAgICAgICAgICAgICAgICAgICAgICAgICAgICAgICAgICAgICAgICAgICAgIC AgICAgICAgICAgICANCiAgICAgICAgICAgICAgICAg ICAgICAgICAgICAgICAgICAgICAgICAgICAgICAgICAgICAgICAgICAgICAgICAgICAgICAgICAgICAg ICAgICAgICAgICAgICAgICAgICAgICANCiAgICAgICAgICAgICAgICAgICAgICAgICAgICAgICAgICAg ICAgICAgICAgICAgICAgICAgICAgICAgICAgICAgIC AgICAgICAgICAgICAgICAgICAgICAgICAgICAgICAgICANCjw/lQYjV1zgrNKsktQ9H3jmXj7VDs8ITA 2jj0PsLKEjKFkkrmDhPrlKYkFzXIBiJkyMDfe3JKrjHY2FlGWpZ0OtE9DiLVpfCH1NIEFlLBWqvYJjJT IcLVPxGoB4YQTdYMexIW2RwDEnKQsrSKYfUJXiKW9Y FQIqL730noWuWF0NOc2QFvZaNB5grc3NRsXhCFMyBnuSJcv2KOloFA7SnAQfyVZlCkRcIMYQYeWvB3ki z0JkYmMtBZXLWQeiSZ5Av0HczDDvKEz+Rz4FCN2vf5JvOXlrGxFhNA4lfu3PBFhQUiRgZ7NkkYblIL28 ukJlmdvzSe27MVFhmQOEjIkjoCMtS4SzqB90fNHhHT CPKxNklCY7OsH4ApClNfMyDLI8HSzgCD7sSYleNO9SRHM7ZUdfDNShRBTyI8vEFuPqMZgrJNRslMxoBP 5AEuJdX7EqvjYkkVFbFxHmUAXJSw5+GChtgnAlYwrRLqW2IFQjf3BmQJz0GX8DGPXvOPgtCH8PEVDnwN 1eQHhqRQ3BUeJbWLRmMYCZHiHvE37vrUVnONd0P7Mj YmVkZGVkRmlsZXMgPDwvTmFtZXMgWyBdDQogID4+ID4+ZWocCT0LUKmndfRcXZLdKo8WBCYtBWBmZH9j UUBuQHHfE7D8fQpxUFSSSoXaK8aodbsnCU6mFWSoX482yXorfwHqRSTfUIZfJs0CELXvQBQ8SEEumZBx XhYmELUAZIfoNH0GgZNaCAQ0dL3tDAkcKDKjLNOtL3 bUXbBnsUugVY23xJgrxqUbdOIkMJk+Co8PNX3jj5MgFMf9gcRiIPrhXZQ1LQpaFUXxQKBzZSOkFRP7SG Y8QOTCTdQfFHDwQKWfEKvtLFRuNVPyvw8ZRNNcFBHjSDD9QSGrYOFiPNToAAchAURcUXZkKYRuDWNlZZ IbLE3JLvXmSALdJMZiMVflNRZmAVQbri4MGCRzVIKq KQWxRJIyOVVwWYBsRXwkJSCjPSHgOVD8RLXvWOIfNV1AFyNqIXVpCVI3SIBgZFGyNQBqgy8ZTUCiTFYn Lvo3VSDeKSHzVNMkALfjJRCxYXNkLGn9KRPoDMGsKP4QTmSxNUVmNKUcUxznRTFqDBDfth6WAHGnGAOu MFBqORFpPVTbXFHuDBiiSQPpEKM3HJP0YRRmHHKeDU 9HNvKiNEAjACO3QePeJCZrRZUgwd7OQKDhIAInApC6NbTlICQmLIXsZUpdGPXuHKZ4OvqmPRGpUDJxRH 1FLzNeIIHuWKu6UfOlKPDjEKNwnv4GUMOvKUYsIbo8RhQiXFVhYHTnRCclXJLfWZK3NmY4NJJnPFVoPL 9ARvZqJGGjUUo2FFYiAJWbCFVqbg1CIQJeRFTvXFM0 GdAlPEErXTRqKSfsQCPiBSG1KBcgBFYtTVUjPM6ARdWuELEhBvQ3DdBkUERqVFAjmc6IYCItOYVnVUDx KnHsJYVvOLZjBKiwZEHiXIPxFPHoBFGiILXpLC8WAoWnZRiiSVXNMfm2FUpdP1u8FRVhXZ7JF0Pck7Sb QnCvVARXHTshPH4hvsWqMQSmSp2WM8rKFwmgUJNoYL riLXExFPP5GhJ8D7F7AqJpWPCcJJNgCGQ8AF4hMQO1XuE5F5P0DCY1BPr4YmWlXgKiJCU7JRP8JIK1LB p9HaFxMN7VSf9QFeB9GRD3cTJvWf0GVvOlBYHKWlRkZX0DEAb= ID Date Data Source [id number] 04/27/2021 05:24:00 AM EDT [facility] Name Value Range Interpretation Code Description Data Arabella rce(s) Supporting Document(s) Glucose, Fingerstick 88 mg/dl 70-110 Normal (applies to non-num madiha results) [facility] The above 1 analytes were performed by [facility] [id number], ,[place] [address] ID Date Data Source [id number] 04/27/2021 05:58:00 AM EDT [facility] Name Value Range Interpretation Code Description Data Arabella rce(s) Supporting Document(s) Blood Urea Nitrogen 9 mg/dl 7-18 Normal (applies to non-nume ny results) [facility] Creatinine 0.72 mg/dl 0.51-0.95 Normal (applies to non-numeric resul ts) [facility] N-Acetylcysteine (NAC) and Metamizole em ve the potential to falselydepress Creatinine results. Baseline values before medication adminstration are recommended. Patients undergoing treatment with phenindione will have falselydepressed results. Patients on phenindione therapy should be tested with an alternativeCREA method.Toxic levels of acetaminophen may lead to falsely depressed results forpatient samples. Glomerular Filtration Rate >90.00 mL/min/1.73m2 [facility] GFR Reference Ranges:Normal Function or [...] of Health and the National [employer]ney[employer]. The Elsie method used in calculating this result is traceable to [employer] standards. Glucose 80 mg/dl 70-110 Normal (applies to non-numeric resul ts) [facility] Sulfasalazine has the potential to false ly depress Glucose results. Sulfapyridine has the potential to falsely elevate Glucose results. Baseline values before medication administration are recommended. Calcium 8.1 mg/dl 8.5-10.1 Below low normal [facility] Sodium 137 mEq/L 136-145 Normal (applies to non-numeric resul ts) [facility] Potassium 3.8 mEq/L 3.5-5.1 Normal (applies to non-numeric resul ts) [facility] Chloride 109.0 mEq/L 98.0-107.0 Above high normal [facility] Anion Gap 11.1 [facility] Carbon Dioxide 20.7 mMol/L 21.0-32.0 Below low normal [facility] The above 10 analytes were performed by [facility] [id number], ,[place] [address] ID Date Data Source [id number] 04/27/2021 05:35:00 AM EDT [facility] Name Value Range Interpretation Code Description Data Arabella rce(s) Supporting Document(s) WBC 8.06 x1000/ul 4.80-10.00 Normal (applies to non-numeric re sults) [facility] RBC 3.77 x1Mil/ul 4.20-5.40 Below low normal [facility] Hemoglobin 9.8 g/dl 12.0-16.0 Below low normal [facility] Hematocrit 31.6 % 37.0-47.0 Below low normal [facility] MCV 83.8 fL 81.0-99.0 Normal (applies to non-numeric resul ts) [facility] MCH 26.0 pg 27.0-31.0 Below low normal [facility] MCHC 31.0 g/dl 32.2-37.0 Below low normal [facility] RDW 14.4 % 11.5-14.5 Normal (applies to non-numeric resul ts) [facility] Platelet Count 233 x1000/ul 130-400 Normal (applies to non-numeric results) [facility] MPV 10.0 fL 9.4-12.4 Normal (applies to non-numeric resul ts) [facility] Neutrophils 68.6 % 40.0-74.0 Normal (applies to non-numeric resu lts) [facility] Lymphocytes 21.7 % 19.0-48.0 Normal (applies to non-numeric resu lts) [facility] Monocytes 6.8 % 3.4-9.0 Normal (applies to non-numeric resul ts) [facility] Eosinophils 1.9 % 0.0-7.0 Normal (applies to non-numeric resu lts) [facility] Basophils 0.6 % 0.0-2.0 Normal (applies to non-numeric resul ts) [facility] Immature Granulocytes 0.4 % 0.0-0.5 Normal (applies to non-nu meric results) [facility] Nucleated RBCs 0.00 % 0.00-0.20 Normal (applies to non-numeric r esults) [facility] Abs. Neutrophils 5.53 x1000/ul 1.92-8.31 Normal (applies to non-numeric results) [facility] Abs. Lymphocyte 1.75 x1000/ul 1.20-3.70 Normal (applies to non-n umeric results) [facility] Abs. Monocytes 0.55 x1000/ul 0.14-0.97 Normal (applies to non-nu meric results) [facility] Abs. Eosinophils 0.15 x1000/ul 0.00-0.76 Normal (applie s to non-numeric results) [facility] Abs. Basophils 0.05 x1000/ul 0.00-0.22 Normal (applies to non-n umeric results) [facility] Abs. Immature Gran. 0.03 x1000/ul 0.00-0.02 Above high normal [facility] Abs. Nucleated RBCs 0.00 x1000/ul 0.00-0.02 Normal (appl ies to non-numeric results) [facility] The above 24 analytes were performed by [facility] [id number], ,[place] [address] ID Date Data Source [id number] 04/27/2021 03:19:48 AM EDT [facility] Name Value Range Interpretation Code Description Data Arabella rce(s) Supporting Document(s) Care Plan [facility] FSZVHe3yOmEZZpDd18/BKIxaXDEtb0JcZPxnBXd7CQlhNXJfC3XtNHL5gW4yJYH0OApMKpTzCbYvMOT0 lbm [file] ICAgICAgICAgICAgICAgICAgICAgICAgICAgICAgICAgICAgICAgICAgICAgICAgICAgICAgICAgICAg ICAgICAgICAgICAgICAgICAgICAgICAgICANCiAgIC AgICAgICAgICAgICAgICAgICAgICAgICAgICAgICAgICAgICAgICAgICAgICAgICAgICAgICAgICAgIC AgICAgICAgICAgICAgICAgICAgICAgICAgICAgICAgICAgICANCiAgICAgICAgICAgICAgICAgICAgIC AgICAgICAgICAgICAgICAgICAgICAgICAgICAgICAg ICAgICAgICAgICAgICAgICAgICAgICAgICAgICAgICAgICAgICAgICAgICAgICANCiAgICAgICAgICAg ICAgICAgICAgICAgICAgICAgICAgICAgICAgICAgICAgICAgICAgICAgICAgICAgICAgICAgICAgICAg ICAgICAgICAgICAgICAgICAgICAgICAgICAgICANCi AgICAgICAgICAgICAgICAgICAgICAgICAgICAgICAgICAgICAgICAgICAgICAgICAgICAgICAgICAgIC AgICAgICAgICAgICAgICAgICAgICAgICAgICAgICAgICAgICAgICANCiAgICAgICAgICAgICAgICAgIC AgICAgICAgICAgICAgICAgICAgICAgICAgICAgICAg ICAgICAgICAgICAgICAgICAgICAgICAgICAgICAgICAgICAgICAgICAgICAgICAgICANCiAgICAgICAg ICAgICAgICAgICAgICAgICAgICAgICAgICAgICAgICAgICAgICAgICAgICAgICAgICAgICAgICAgICAg ICAgICAgICAgICAgICAgICAgICAgICAgICAgICAgIC ANCiAgICAgICAgICAgICAgICAgICAgICAgICAgICAgICAgICAgICAgICAgICAgICAgICAgICAgICAgIC AgICAgICAgICAgICAgICAgICAgICAgICAgICAgICAgICAgICAgICAgICANCiAgICAgICAgICAgICAgIC AgICAgICAgICAgICAgICAgICAgICAgICAgICAgICAg ICAgICAgICAgICAgICAgICAgICAgICAgICAgICAgICAgICAgICAgICAgICAgICAgICAgICANCiAgICAg ICAgICAgICAgICAgICAgICAgICAgICAgICAgICAgICAgICAgICAgICAgICAgICAgICAgICAgICAgICAg ICAgICAgICAgICAgICAgICAgICAgICAgICAgICAgIC AgICANCjw/bDNdZ1nftEQmsdZ1I0vdCv1WXv6LKV0ax7ThJCCjMDkrlwVeXvvFSrRwNSRaJqkMErf5KL noYC4SvDLuY6RaD3SoOPslAZ0FAOSzXTOqcPHrYUPyOEOkZtR7TXUoTApwTL2ArEPzYNamVYOtKIKnGw FzYYQvOR8FJZUxB540eeGgYj9RBu5AOeGdYP0uql6E YsZpSHPiNgvXRod6YCchOW3NzHYpuOQxPbLcLYYEXiMfJ3cqk7XnHsYlWWXDXQtdDL1Ve5RecCRaZQq+ Wy4JUE4kd9RdYRmuFwBxFM2qmo2KXRnCCfIkR7AnlTkrQBBacdOjSHebpwRzrXWOdQsauQTmD8PpiD08 lTTrAESFUdZefEF2YsY5BbUrYhEvEOJ8XQfkXI1uSX reJQ9NEUX6XJshKRPnAEMcL0uHQoHoUUkpBDMwvEbpML6EVtEaM2AnluIbrIPyYTBlJAUQCw0+DQplbm IkYacBLpR9PSGex5MuZTo4DZ0RRMLvATkdBI5YNUTikY5hXQcpPW9XZhCvYpLjHKVIGoBzD70oqQNpUF l4F9OlFtPeXRVhJfvqYQSiRTtdRqXtAPQaQzWeJIhr ID4+ID4+DItyLF4ZBHnrkkLfOSYhQg3ANMDjHGOyZC0dNWPoVSOaZ2U5hLomGQGOByQbA8bcisaiJR0x PDIvK458zBhcixBzLEZ0GOExTf2TMZHeRAU1XVTtzVLdHzJiANTCTZewYS0WmNDdANL0eM9eABywJNDa NYLzG2gSZfUbcMfpXB32vLfsykUuvZJpPRz+Pg0KZW 7fq7UvJAe2hjPhMWgvOLI4IIwsEMPbIHAfLWPaFTA5EIV2QVSDGePqPDJcEWTxVZaoJYCaQLBjpf8ZUS AjCUW5EIP0NPHmYMSnDCGnHUpdXDAyKNF3CHGbKGJgJKXtEK3XOnRbMVIuLWGlYUnaEPUgEJDzur0IEZ AwMDAwMzMwOSAwMDAwMCBuDQowMDAwMDAzNTEzIDAw PDCtKV0OEbCgDCGgXVIpRRVmLKIsKFUyta6BVQDiVDLdBKUgAjJzSOJtMVHbRZgbCZHlCGA3GcM5MFOa QKMaDZ6LMzGfRIOzIXO1YiYoLJBtROIuqz5BQHDeGFZsXxB5DBNjQIXpAJHwJJmzXUKgHNP3NrOxVBPr CGDpFN5WSyPfNUWxVHc7UVqtEAFrMYDvwh3MTNDtQG MbUvn8ZNVdZSSyRCOdZFcpEWDfVMVaZkJkHMAkAUCaNM5EKzKqBXZcKqY0NVHlZYZrZFQycn1SZANqCM XcHFt6UNYoJSAoBAYhIMozCVLrNNOsKFR9IGByAQWwXR0OZzDrRYTwIkHiTICyERQrEJZmio6ULXEzLD FwIjR5FzEmXNUiTBHdFVdvZVGqHOBfMqduRATnGCQt VJ4FMmTqAPUdKwV7SyuxVBNaEQYmgx9IDHWuRQYnUiUxQRVoBAQbHHNoFSasGWUvBANsHmQ2BQSkERMp CN7ULpZxKUUbQlB6WnsnTMDzBTSbju4SSUDoNOW8XRS7SqBwAFTeFUEpWPacOAJyGLNtYSH6PVZjWVFq GF9YRgIwHGNoPOIuQzGwCNRyJJNoro0DZWJaNCX1Bt F5AXPnJOSnALUgFAukVZGxJPRfQNA7GIArDJPyOM6BPuIyXJPyEOM6OTniJZGcLHImha0RFSUfQHP0Rk t3FJVfSXPfHVCrPWquSWRwUHK7YTZ9FJZqHFJhVX4VKrJcDYLuWAE6XLVkWQUfUMJvoc9GVKXwWAA7Eh O8QiEcNVHnZUJbJVwyHMCqWJN5UGI4CQUgWKRkJC2Y EfDlMEErWBXqGbUyKFMsLICnit1FhJDwvQzcxf8HQSdYEl7MeXycJND3QQxhZg2qoEXcWiSoHDQJMz8J roNcQYXmTWDKPZvfSMMpMEPzLKXhYlhxTQT9KznoYIY9VQFqADE9YfSoMQywDgZlWnQ5BYUpZkLkMAW1 IAQuMQW0DnioMTP9CyzgEnYaI1RkN7I+IK9qNBg+Rd4Vq1CcgaF4myJjFWe6YoQyEx1JOVSNK7QWYg== ID Date Data Source [id number] 04/26/2021 11:50:00 PM EDT [facility] Name Value Range Interpretation Code Description Data Arabella rce(s) Supporting Document(s) Glucose, Fingerstick 99 mg/dl 70-110 Normal (applies to non-num madiha results) [facility] The above 1 analytes were performed by [facility] [address], ,[place] [address] ID Date Data Source [id number] 04/26/2021 06:50:00 PM EDT [facility] Name Value Range Interpretation Code Description Data Arabella rce(s) Supporting Document(s) Glucose, Fingerstick 114 mg/dl 70-110 Above high normal [facility] The above 1 analytes were performed by [facility] [id number], ,[place] [address] ID Date Data Source [id number] 04/26/2021 06:45:07 PM EDT [facility] Name Value Range Interpretation Code Description Data Arabella rce(s) Supporting Document(s) Progress Notes [facility] KKVSRf9dEuVVRrLq96/NIRvrSGBtu3ZrROatUVn3SXddTQNeY4YfFCK0iY7cNEE7TAyIMmTaWyPyTCR4 lbm [file] [employer]/hBBGXj5BJvf0cC2Xz5947V6il3pKR//ftpSwwg8D04CC30+vP7/3b6j/hwxyS0wbnhBgkTVg3X2+ [file] OD7bTVi+Ie8Wx1FxymT8duHlINcpUOY8Qm7IBRXRG3SUDh== ID Date Data Source [id number] 04/26/2021 01:21:29 PM EDT [facility] Name Value Range Interpretation Code Description Data Arabella rce(s) Supporting Document(s) Care Plan [facility] EVXJPe5yNpGEUtQm31/ICBcvYSVlk5WyUGrhYWb0TNnnLAJwQ7XnOBB8vY5lAXF5ZCbQSwMqLaZiUBA1 lbm [file] AgICAgICAgICAgICAgICAgICAgICAgICAgICAgICAgICAgICAgICAgICAgICAgICANCiAgICAgICAgIC AgICAgICAgICAgICAgICAgICAgICAgICAgICAgICAg ICAgICAgICAgICAgICAgICAgICAgICAgICAgICAgICAgICAgICAgICAgICAgICAgICAgICAgICAgICAN CiAgICAgICAgICAgICAgICAgICAgICAgICAgICAgICAgICAgICAgICAgICAgICAgICAgICAgICAgICAg ICAgICAgICAgICAgICAgICAgICAgICAgICAgICAgIC AgICAgICAgICANCiAgICAgICAgICAgICAgICAgICAgICAgICAgICAgICAgICAgICAgICAgICAgICAgIC AgICAgICAgICAgICAgICAgICAgICAgICAgICAgICAgICAgICAgICAgICAgICAgICAgICANCiAgICAgIC AgICAgICAgICAgICAgICAgICAgICAgICAgICAgICAg ICAgICAgICAgICAgICAgICAgICAgICAgICAgICAgICAgICAgICAgICAgICAgICAgICAgICAgICAgICAg ICANCiAgICAgICAgICAgICAgICAgICAgICAgICAgICAgICAgICAgICAgICAgICAgICAgICAgICAgICAg ICAgICAgICAgICAgICAgICAgICAgICAgICAgICAgIC AgICAgICAgICAgICANCiAgICAgICAgICAgICAgICAgICAgICAgICAgICAgICAgICAgICAgICAgICAgIC AgICAgICAgICAgICAgICAgICAgICAgICAgICAgICAgICAgICAgICAgICAgICAgICAgICAgICANCiAgIC AgICAgICAgICAgICAgICAgICAgICAgICAgICAgICAg ICAgICAgICAgICAgICAgICAgICAgICAgICAgICAgICAgICAgICAgICAgICAgICAgICAgICAgICAgICAg ICAgICANCiAgICAgICAgICAgICAgICAgICAgICAgICAgICAgICAgICAgICAgICAgICAgICAgICAgICAg ICAgICAgICAgICAgICAgICAgICAgICAgICAgICAgIC AgICAgICAgICAgICAgICANCiAgICAgICAgICAgICAgICAgICAgICAgICAgICAgICAgICAgICAgICAgIC AgICAgICAgICAgICAgICAgICAgICAgICAgICAgICAgICAgICAgICAgICAgICAgICAgICAgICAgICANCj w/qZGvK1ievOLxojQ5B3nvCf2ASk0QCT8he6IyHYJt SGiwqsPvBncMXzRpIUPwNylDGbs4GKivEQ5XuXHtT2DkU3JtVJbxDH9BCAIoMXEreVEnVJPpYCGvGpP0 YTLrAXdcQR5TjDHyCHewJPLxIIKuLoVoHVYhXFQyWGFpDWRmWMKJSSDgJEVhHnCsBRLfNVHrMAheGTCM LXN5QRKiYxLhJCKqYOMkRgHeYLQJKVH3NHSnBmBaIt KsRGHiKoasDCWRSAJiKXNdYmGxZjIgFJNtDM1GHONiS216zyAiYSKRNf1+DQplbmRvYmoNCjUzIDAgb2 SyXDv6JH1ILHXfOlaek5EjBTLuXTTPNUndYY8SLYZ6RBB9EDOaNx5WFFGuF053olUaAH4WDa6TUzOrLV 1sgo6GHUJvMUJeYvyMOhp8MZcaVP2HgUVtUJzXEMMp ONWcTB2vTjvjKQ7cSDmeTF8kH27jPHjmYv5KBIV4ZFjkYAsyUtMfZJVlRItuVVMLTNfTDxWeN4Nmm3Wj TzI0NQOoEePaDAeqPELyAdG5UO61fTybTL2KPEJeAPGxVN66KUCnNEIpZo9IHi6KYdDdST4umf0XJKNg MJWsGbaOCus2JFdbLI1JxKHaC0OwqELsa3cMWfNxR3 OBKUCdJVPyPl1GVAZvJkTaXTBmJJmrPN7mSFZcKNOQyDzhuqG2WW7SHC7izrQaMR3AYwDoNc3aQs3PEn KyH1GqX6GxIYIfAQZIRPqiGS9EIWyiOE2mSM9Rn6NNhWUscH2grm5VRCOpXXEyQrfyiz3PGqkxL3M6vL znJAEcFXVdWZSPTQcdEH4CYOGzHVL4GXR8XlSuFSVE CmXuF32gTV6EN8Clx85mNfV6FMCnFxUxUPkcZV28aVgfatLzpTDxbLofFQ5QKj4+DQplbmRvYmoNCnhy WMCXVvFsRTPVIuOhODJhYKRgTTOnPkL5BfHnEu3BMNNtOYLwTOMcBeVqFXKnBXHsDOodOMKzNEM2GeR7 GAJfRVAsAK7QByVlLYJoIZE0VvIuSGHjNGGisu6JCH XmALEsSAA9SwNxJCTjHGQxGVmpIZEhHTQhBwyaGDIxSWTwOL0HJiSxZKQiWGF9MQAfLFMiYYEytk3VUH ItPWDyYpOnVoXdSMBpZFPqUMnqACJuUGOlAURzTHYuNRNvGL8XSnWzQQAqQQQ4NPEyPXQaBZGdms3VZM VeQSKdXLy9QeXaKDYyVXGoOCjiZBJsZCB6Ouf5YEMa PWUdUU5MMtDhPEJaSSzmBHEkATOvHKOwsc5UJTAxOQEmJDOgMdWxJODtCFItZKvuTBPyZPY6SVW5KEJq IOZvQO8QZmTlOCHfFOV8MFDwAFRyHEMoky6EPXCmGIQaKAD3RmWzYGFyPBMcCRkjICWmBLLnYNE9WPPa YTDrIR5OOlGiPGZlUDB9SMErVNZtMPYsks2TKYNvEI UoWHUuPSKlPQNmBGAmHXnjZUDdLIK9LxHaKYXsWBVxWU7THsVbMHEjVHG7PSRqEPOiYWUxfv2VOEOiFV JiAUc8LuXtFVBqZBOqNHnlDBQmGWQ5XoCbUWDwHSRiVT1VYwHvZRSwJAb8TZicFWAgEJWvwf8UGBVlRG TkYYUkQLBhBDJmURJiWRjaRVRcFID2WTPbQZRmCKEp WB1OWiGwSMGtIkBtTIbaXIGqBESnej2JTSRbPKPkEBA3XcUmNNHfVYIkPPwpOMVvHWXbCVJ7PXUcLHZm HF5TIvOnZEHnSuFgAvXqVUPuZCBrhn4MOEXrXZPuBILsOOUxFKUlWIYaIOuuGMOgACO3YoU4SRFqJGBr VD6GSyKcCCJbPtN9DqHxKCJoGGRwdq7XHNEuZSVdNr InAnSsRTFhIUDnMPmnOAEuSVL5OLn0GCVyCORtSI4SMbZhTIXkMfb9GDjwBQXaIKMtas9FAMQlDRJfCi i3BjXjPKViMWXkBQzsVPBfEDQ1YRE3KJGzWSJqON2HKdRvEKJzCafrTlKdFSVjILKasn4LPLInSWKbND ZjJmJlWQEzMKQlOEcxEQTxPBIsYwY7QLJyBWJsVV6G KoMgKNCfNGE7KDAzTIOqIBFbcc2NEKLyTHJ9WdJ3PNOjEVNcCWIfRJndZWCmMIJvYZIyTMLdECCvMK6U IgJxJDTtRHA5EnOiBHZbRFAmzf1EZEUqAXN8BwTyRYLpJXBvQOJxCBeiGOStOFRgUtO2VTHbTYIrED3J GfYgCZTjBLJ7NUHjUOKxQIHypi0SXYWrGOM3PBa8PT BdGNKnARFbFWpkREMxCNT0KRL5QZYtWALeGP7OLmUrCTEkFGPxVLHeAAFrNUPqwv0DPBRnLBC2ZUVfDR FkTXFqOUYrPTngRCDwGIO7MAphPWRlZVEtXQ3AYyJfGEGoVOioELAfJLQdDRCuds8UHQRyNWO6GuS7WE CqLRPdXURvGMd1loRofKOoLKh8TN7KS3FsvyIjRYCV Wj5Bb563QAG2RARuYy8GO2doJq7fWWVuBRJTVe8CTFb5ZSG2EoOvAJT2VGAePBYrHIi2TMCzRyabRtLn NTkyZjg+UWvbZJM4OfMoZWU2OJE5IFC0TLGhRxB6F1YaHhQ6XRMfXT2fMTPXQi4+DQpzdGFydHhyZWYN ZxR9MxU3RSadCDCTKv7O ID Date Data Source [id number] 04/26/2021 01:20:39 PM EDT [facility] Name Value Range Interpretation Code Description Data Arabella rce(s) Supporting Document(s) Care Plan [facility] BVNTQk7pPgMJUrGl56/KDUroIAZwd4DyPRysTZx1SWjiNUHlJ0JkAEN8rV2tFZO1RRrMKhLuZqBkFVH7 lbm [file] RZC5EJovXEYTIr4M ID Date Data Source [id number] 04/26/2021 12:43:10 PM EDT [facility] Name Value Range Interpretation Code Description Data Arabella rce(s) Supporting Document(s) Nursing Note [facility] CEVBAo2iXeUYGqTk79/TOFnbLIGna0Yh[id number] lbm [file] [id number] ID Date Data Source [id number] 04/26/2021 12:06:00 PM EDT [facility] Name Value Range Interpretation Code Description Data Arabella rce(s) Supporting Document(s) Glucose, Fingerstick 107 mg/dl 70-110 Normal (applies to non-num madiha results) [facility] The above 1 analytes were performed by [facility] [email or web address], ,[place] [address] ID Date Data Source [id number] 04/26/2021 04:59:00 AM EDT [facility] Name Value Range Interpretation Code Description Data Arabella rce(s) Supporting Document(s) Glucose, Fingerstick 84 mg/dl 70-110 Normal (applies to non-num madiha results) [facility] The above 1 analytes were performed by [facility] [id number], ,[place] [address] ID Date Data Source [id number] 04/26/2021 05:20:00 AM EDT [facility] Name Value Range Interpretation Code Description Data Arabella rce(s) Supporting Document(s) AST 15 IU/L 15-37 Normal (applies to non-numeric resul ts) [facility] Sulfasalazine and sulfapyridine have the potential to falsely depressAspartate Aminotransferase results. Baseline values before medication administration are recommended. ALT 19 IU/L 13-56 Normal (applies to non-numeric resul ts) [facility] Sulfasalazine and sulfapyridine have the potential to falsely depressAlanine Aminotransferase results. Baseline values before medication administration are recommended. Alkaline Phosphatase 53 mIU/ml 50-136 Normal (applies to non-num madiha results) [facility] Total Bilirubin 0.70 mg/dl 0.20-1.00 Normal (applies to non-numeric results) [facility] Blood Urea Nitrogen 11 mg/dl 7-18 Normal (applies to non-nume ny results) [facility] Creatinine 0.76 mg/dl 0.51-0.95 Normal (applies to non-numeric resul ts) [facility] N-Acetylcysteine (NAC) and Metamizole em ve the potential to falselydepress Creatinine results. Baseline values before medication adminstration are recommended. Patients undergoing treatment with phenindione will have falselydepressed results. Patients on phenindione therapy should be tested with an alternativeCREA method.Toxic levels of acetaminophen may lead to falsely depressed results forpatient samples. Glomerular Filtration Rate 85.00 mL/min/1.73m2 [facility] GFR Reference Ranges:Normal Function or [...] of Health and the National [employer]ney[employer]. The Elsie method used in calculating this result is traceable to IDMS standards. Glucose 81 mg/dl 70-110 Normal (applies to non-numeric resul ts) [facility] Sulfasalazine has the potential to false ly depress Glucose results. Sulfapyridine has the potential to falsely elevate Glucose results. Baseline values before medication administration are recommended. Calcium 7.8 mg/dl 8.5-10.1 Below low normal [facility] Total Protein 6.4 g/dl 6.4-8.2 Normal (applies to non-numeric re sults) [facility] Albumin 2.9 g/dl 3.4-5.0 Below low normal [facility] Sodium 139 mEq/L 136-145 Normal (applies to non-numeric resul ts) [facility] Potassium 4.0 mEq/L 3.5-5.1 Normal (applies to non-numeric resul ts) [facility] Chloride 113.0 mEq/L 98.0-107.0 Above high normal [facility] Anion Gap 9.3 [facility] Carbon Dioxide 20.7 mMol/L 21.0-32.0 Below low normal [facility] The above 16 analytes were performed by [facility] [id number] [facility], ,[place] [address] ID Date Data Source [id number] 04/26/2021 05:20:00 AM EDT [facility] Name Value Range Interpretation Code Description Data Arabella rce(s) Supporting Document(s) Magnesium 2.1 mg/dl 1.6-2.6 Normal (applies to non-numeric resul ts) [facility] The above 1 analytes were performed by [facility] [id number], ,[place] [address] ID Date Data Source [id number] 04/26/2021 04:54:00 AM EDT [facility] Name Value Range Interpretation Code Description Data Arabella rce(s) Supporting Document(s) WBC 7.39 x1000/ul 4.80-10.00 Normal (applies to non-numeric re sults) [facility] RBC 3.51 x1Mil/ul 4.20-5.40 Below low normal [facility] Hemoglobin 9.3 g/dl 12.0-16.0 Below low normal [facility] Hematocrit 30.1 % 37.0-47.0 Below low normal [facility] MCV 85.8 fL 81.0-99.0 Normal (applies to non-numeric resul ts) [facility] MCH 26.5 pg 27.0-31.0 Below low normal [facility] MCHC 30.9 g/dl 32.2-37.0 Below low normal [facility] RDW 15.4 % 11.5-14.5 Above high normal [facility] Platelet Count 256 x1000/ul 130-400 Normal (applies to non-numeric results) [facility] MPV 10.5 fL 9.4-12.4 Normal (applies to non-numeric resul ts) [facility] Neutrophils 48.7 % 40.0-74.0 Normal (applies to non-numeric resu lts) [facility] Lymphocytes 41.1 % 19.0-48.0 Normal (applies to non-numeric resu lts) [facility] Monocytes 7.3 % 3.4-9.0 Normal (applies to non-numeric resul ts) [facility] Eosinophils 1.6 % 0.0-7.0 Normal (applies to non-numeric resu lts) [facility] Basophils 0.9 % 0.0-2.0 Normal (applies to non-numeric resul ts) [facility] Immature Granulocytes 0.4 % 0.0-0.5 Normal (applies to non-nu meric results) [facility] Nucleated RBCs 0.00 % 0.00-0.20 Normal (applies to non-numeric r esults) [facility] Abs. Neutrophils 3.59 x1000/ul 1.92-8.31 Normal (applies to non-numeric results) [facility] [facility] Lymphocyte 3.04 x1000/ul 1.20-3.70 Normal (applies to non-n umeric results) [facility] Abs. Monocytes 0.54 x1000/ul 0.14-0.97 Normal (applies to non-nu meric results) [facility] Abs. Eosinophils 0.12 x1000/ul 0.00-0.76 Normal (applie s to non-numeric results) [facility] Abs. Basophils 0.07 x1000/ul 0.00-0.22 Normal (applies to non-n umeric results) [facility] Abs. Immature Gran. 0.03 x1000/ul 0.00-0.02 Above high normal [facility] Abs. Nucleated RBCs 0.00 x1000/ul 0.00-0.02 Normal (appl ies to non-numeric results) [facility] The above 24 analytes were performed by [facility] [address], ,[place] [address] ID Date Data Source [id number] 04/26/2021 02:31:41 AM EDT [facility] Name Value Range Interpretation Code Description Data Arabella rce(s) Supporting Document(s) Care Plan [facility] HLXTQj5cDrJERvBt12/FQKlgGXUfc4DcMQseGHo9SXuuILDpP7YdXMN5mY9xMSY1NOkEIqKjOzVtFJT2 [facility] [file] [id number]== ID Date Data Source [id number] 04/25/2021 11:21:00 PM EDT [facility] Name Value Range Interpretation Code Description Data Arabella rce(s) Supporting Document(s) Glucose, Fingerstick 84 mg/dl 70-110 Normal (applies to non-num madiha results) [facility] The above 1 analytes were performed by [facility] [address], ,[place] [address] ID Date Data Source [id number] 04/25/2021 11:09:15 PM EDT [facility] Name Value Range Interpretation Code Description Data Arabella rce(s) Supporting Document(s) Nursing Note [facility] AZJVWl2wHuPDQxCp05/CVTnrSEHul0QlLHbySLs2ZEkiKNNrV8EuCFW8yS6rGDW9QLjWHnYqCeTtHNZ8 lbm FjItlREyLaYFElShzHDqVwPAhsWxgmnQSuWO0YxRG9IHDnH32zKBIjLGYwY7RvFEStNgb+Kj9BCMLdzG JoCR4NOeuZ3SvzeicAGO7p5Q+DhwKt0H9lwBbuOTVeELYTRUOhj49syDHV7Qw3W6CktL9xpMDKfEhkPE 4xBKJhWKOPZA1cccXHCdL/+2btNcUQHC2wOhcl5HWT 444TcTfawgHyLtBYWVLaTR2byedmcvOrWtGvED/JFXab2vYfUXuCcJTgxRqEwN1qPJu0LkzNkcXtUUBJ k7I3OaQDFukfUvtPwna43rUISHhoFw/eKOWlfiLozIIElIwFEqCA5JD25zNiz2TEy0QNXAMgidZdplNH QGC4RkrbY5dlbEaE0yG3he64Ehg2XWG2j8VSMTxMSU EK8aY1k4LR3n7cgQlG7oSE+azxFfOwvjPCIn2fTnjJZZtCR2hfKnVTcXeKdKLoKhtUUxuNbzWWoEndCA NgdMjuO8+Maddy/+tiFfTh/Cc5VdWUZm8fyoprQxSPJNcnlk9B1gFqQsgiIEB+kq6Go8fQQcVV2Nes3DRr [file] S4JNO3dERxBz1SZsHsYTUXGtEjVR3EVJx= ID Date Data Source [id number] 04/25/2021 07:08:57 PM EDT [facility] Name Value Range Interpretation Code Description Data Arabella rce(s) Supporting Document(s) H&P [facility] VMXYVu6tVsLARpWh84/OWXzcGJAnh3JhZGauDUb0GShqYBZzN8SpJHT7vT0zVNT0VDxMOpAvPvBsAFL0 lbm [file] MjEgMCBSDQogICAgICAvRjIgMjQgMCBSDQogICAgIC HsTsGkDyjvOPHZYYbiOQTwRECeRcJkFvMiIRRZUAwtKCEiWPYoGoHiSbZoAJFBMe6RUtTkGGUxPI8nzv AhvVB7MAB+Cz6MLXQwLV5KdCCWY4KuwXRsFAohB5KVDY0ZALJ1HZ8IlUPfNC4FjJBTX9LzdOFdFa3gUB Kbg9RwSe5wI7BJMUERBKVfIUipTLmgLVKeOPm0U4H7 DMYkG4ESI655aRSypNd8In8tF0JYJQlXLtYeMFhwEXptZKXtLPg7D2L7EIKyT0FYA6LuJbNsltHhS1O+ JiVdRINZJQ1TRXMYCSd7Y4Y3iRMtR1D4nAjFdQD2YP0ZUK2XeQEzpSIus53+TqLZPoIeZRYyW4GTEYPK PsSjEOveGJvuNGQcBHr5V6E2CAJdQ1PWN8qnE6x4NP 4+GzGCVpFeMVVwVm3NCrJnBr3XYqYkTP2bsc3QZwPxZDNpVmgDHwu5N6zcchz9gGZgVbG0Y3U5YhB3pJ QoBU8ML3K7oKRaCRY7XZOjiMM+Vt3Mc7FyGZTsRDg7M5ygKUGvPLPnMrUcfO90D++9rdoubMQ3Z6o7OO QKlSZmmGwErlOoR0kCMAX5b8B0BFl/Ba3IKJH3eGh6 fDWgZNKaVUx5rF9zpZy0HvSbRS88KZFtMWhlcA1pZxn1I7Hdc0VdHl4tLp9qtIJwAy2DHyVtKJM9mdHz WtZXQdW7qKjoupxlMWL1P0h4jCX0Jk00v2upatWvf2FlPnR8XZvnBIPpUsXoygWjZRM2cbAyjW6wqkJw Xa5WLRCnOAbhcfAlXkNOLy6NQmJmGP82CitthY9lqX E+DQogICAgICAgICAgICAgICAgICAgICAgICAgICAgICAgICAgICAgICAgICAgICAgICAgICAgICAgIC AgICAgICAgICAgICAgICAgICAgICAgICAgICAgICAgICAgICAgICAgICAgDQogICAgICAgICAgICAgIC AgICAgICAgICAgICAgICAgICAgICAgICAgICAgICAg ICAgICAgICAgICAgICAgICAgICAgICAgICAgICAgICAgICAgICAgICAgICAgICAgICAgICAgDQogICAg ICAgICAgICAgICAgICAgICAgICAgICAgICAgICAgICAgICAgICAgICAgICAgICAgICAgICAgICAgICAg ICAgICAgICAgICAgICAgICAgICAgICAgICAgICAgIC AgICAgDQogICAgICAgICAgICAgICAgICAgICAgICAgICAgICAgICAgICAgICAgICAgICAgICAgICAgIC AgICAgICAgICAgICAgICAgICAgICAgICAgICAgICAgICAgICAgICAgICAgICAgDQogICAgICAgICAgIC AgICAgICAgICAgICAgICAgICAgICAgICAgICAgICAg ICAgICAgICAgICAgICAgICAgICAgICAgICAgICAgICAgICAgICAgICAgICAgICAgICAgICAgICAgDQog ICAgICAgICAgICAgICAgICAgICAgICAgICAgICAgICAgICAgICAgICAgICAgICAgICAgICAgICAgICAg ICAgICAgICAgICAgICAgICAgICAgICAgICAgICAgIC AgICAgICAgDQogICAgICAgICAgICAgICAgICAgICAgICAgICAgICAgICAgICAgICAgICAgICAgICAgIC AgICAgICAgICAgICAgICAgICAgICAgICAgICAgICAgICAgICAgICAgICAgICAgICAgDQogICAgICAgIC AgICAgICAgICAgICAgICAgICAgICAgICAgICAgICAg ICAgICAgICAgICAgICAgICAgICAgICAgICAgICAgICAgICAgICAgICAgICAgICAgICAgICAgICAgICAg DQogICAgICAgICAgICAgICAgICAgICAgICAgICAgICAgICAgICAgICAgICAgICAgICAgICAgICAgICAg ICAgICAgICAgICAgICAgICAgICAgICAgICAgICAgIC AgICAgICAgICAgDQogICAgICAgICAgICAgICAgICAgICAgICAgICAgICAgICAgICAgICAgICAgICAgIC BhCLCmTBNbPVInEGKlRXMdYFRdAOYsWGPsCGXzILPsAAKyMPJxZONeYHRqFIEvJSPjAOWrMEt9E3npHO LnSCFjTL1zMDg4Cj5+YEhOKcBlWKW2uiDejE1JIQ1s t4OyPIsrBNZuy7TvNVx8AG4CGGKvXDrjGK8LSBscez7XRWFiNWXtfKZDu6raPsXoWEM8FVBwMorgRF2O TAEcG0rrczNzXHSzMBSWHEchDGGUUYtwXNKSJBAwFYOeEjDpShKgLSKvKZNoHTQXLO8VNzLlR9UwhG87 IDYNCj4+NLwcasYuXkeGKxD5XMHgo0WbTQo0YI2JOM DkNmqjz7NfOmgkSDCQFYfiYS0QDIH8QMC1FRDiUf3TTQUlS680qfKnYJ1KFt4OTqYzQD2wel0MLjbiDV YhVwnYDgi3MVbcCQ3PdTCsEEaMPmLlMzjpNYCujKD4WUE6NYS7MDCPUCBubPL1IdA6IqBrBnKdBDQ0ZY PgEV1yRLsoPK6VASK6RFbaRGScFNIuL6qHRcFnKXbc RJZcvDbmVL2LXsPjX6ZgbjOngPAdVdRqEBYSBr9+WRulzzVzZajNMjC5MSLza4AlTVw1HN0HEVEdMIig VM0LCYPjdS2hOLwyEZ5TSlVmSGPfKJRJZmGnZ82prUXfMNi4L1ZnVlDrGNPlCjxdWYVhKAtmLgRrUKZn WyBdDQogID4+ID4+NQycWJ9GVEtrekWeJGEfPb6YDA QmFOJxHW4mGDVqNHIdR8U7gSthHQHPFuExA9kflrxaZO0nCKPwV949cGurloShUJC7KZCxSe1DYBMeOG U7TYWoxWOyAzXcBRPMVFtiGM6RxFOvUIL5cX7nQUsoOBZwAWDuW4hMSvGupOajJT39iUxxevJqjRYiIN o+Zo0EKX1oj2JtKQq2dwSmHXhpZSY1PZctGGLgHGGx ZPThMNM7ZIX6SMWXXaNmIYJuLFSzOOkyBKIjGIGmrx3JNBAxGXEgNbL5UFKpZDGlOBImYUhwCIBhJXR4 XLSkOALeIPGzSN5ZOwArWBSlJISpPAcwNDWzDMWhmf1OEPPhZZWpInY0EdFhOHKjBSLsFGiyFKDiDFVb ViWvUTJgPKAbFW7RLqLnIWUyEFRcOBvoNWJcGDTwiv 2AZYQzJGYxMmZ5FzEfCQHtQUXeRYjvZQYtTQL8TMU5NUQyFNCmHL7IQePuAWMsLXsfBsUfVCOaPTFyzw 5YSEMeHSYsNZN6PVHxOLRnEWIuPJiiEMKoEYTbYMF6KLDlDRGoJG7DAwZlQOCkAPIeWnLlAVNkIJDcji 2BBPVpNOAcEFX7HMJoYGUgLUVjFDohVKUgRQR9FyO7 KHGvFZUyVC1AJyPcEGYtJAR2QqYfFAThMFAkym5VRRByEZJjURp8LKQcBYVvIYQkVGsoWUEdLXN0RHbb NTFwMZFzXS6QUjXfVOUkZWPqXVBfRMXoVUOdnm4PHAOdTUHuMyM4XATtQVOvLANpROmiTXOgYFA7LEZ6 BOSpJBJiCR0WQaUgJXOhDVy3UmEvULHdVPQezz7IXU WhJNPjRLB6FHFeNPIqLUNrVVoxLMUlRMJ0Eje5ZJRvCJRsXD7GUzRkTPPgXVv8JfMsDFZkTMNraw2JTK CvYNAzHGloMxZuDATzSZWcWDmwCAAvVMZdXPVyUAXdCAErHJ0EEnEzTWYnGpLzQuHpIKCzOECyxs5XZD NbRYHbEON8LITiGHXwYLTpKZbtIEIlOPQyRZf6YGVo DTVkVO4QZrIsLJSkSxF7FeNfBIFhTOBcwb8CIUTsBBNtCtFhOvUmOEFxBPZnOKchQDOtDSImTSB1VYHt GGAwDK4WCnRhNVQcUaFzZsBzJLAoSPRzeb0SGRZuEDVySrMsDJZlOVDpYLEaLDczHWPuBJX9SZgbDFOx DJNiHL5HFsOeXNLhOeRaNWYcLYXzXEFkvh1KGBAmLW IgFIW7ZXQeSHImXSXuGBn2jmGpjZFiZQk6VP8FI1EmdtKeOxlNQb8Er536LQL6NHYdSp4SF1edRr2rZT SvQIFBKd8OSOy3MPQhUUQxH1VuMeQ9EGciLMNtKTfuEoDuUWWpDDYsUMK+ZGc3UFUpLIQ0EsJhNRqdT5 L8PJEwZNZkIGGbElMyUDMlNW2gTEGCDd0+IGdppHCnaMhjDSXZDsZ1ESUvCMzqVAIZKh9E ID Date Data Source [id number] 04/25/2021 06:53:16 PM EDT [facility] Name Value Range Interpretation Code Description Data Arabella rce(s) Supporting Document(s) Care Plan [facility] NNAGLa2vCiNGVnBk54/EUZemNUXnf7RfJWghMJv6AIjvIYJxJ0GwAAE0jP1mGZB3POtSBqAoBvQySUW9 lbm [file] dXDoeOpxTTMNPsD9WPe7TDqzHRXQKn8J ID Date Data Source [id number] 04/25/2021 05:55:38 PM EDT [facility] Name Value Range Interpretation Code Description Data Arabella rce(s) Supporting Document(s) Consults [facility] BVGYGp1zYrJNTnZr80/PXMdqQQJhg5EjOZjaAWm3XIihUANuI0DhIIC8vQ1fYXZ8XPlPKrZnUtOtYYD4 lbm [file] CARLOS A+cKdLexHnQhU5vYaQFm4GscDWLa9unpHuQtm6uxL [file] n0Btu7XfMnCqUyZy9mAFASUy5+AEicfMIcfNuzXXYKQvWdXANxVPpzPOILKi4X ID Date Data Source [id number] 04/25/2021 05:13:00 PM EDT [facility] Name Value Range Interpretation Code Description Data Arabella rce(s) Supporting Document(s) Urine Color Yellow Light-Yellow,Yellow Normal (applies to no n-numeric results) [facility] Urine Appearance CLEAR CLEAR Normal (applies to non-numeric results) [facility] Urine Specific Hatch 1.034 1.015-1.025 Above high normal [facility] Urine pH 6.5 5.0-7.0 Normal (applies to non-numeric resul ts) [facility] Urine Protein TR NEG Abnormal (applies to non-numeric results) [facility] Urine Glucose NEG NEG Normal (applies to non-numeric re sults) [facility] Urine Ketone NEG NEG Normal (applies to non-numeric res ults) [facility] Urine Bilirubin NEG NEG Normal (applies to non-numeric results) [facility] Urine Blood NEG NEG Normal (applies to non-numeric resu lts) [facility] Urine Urobilinogen NORM <0.2,1.0,<2.0,0.2 Abnormal (a pplies to non-numeric results) [facility] Urine Leukocyte Esterase NEG NEG Normal (applies to non -numeric results) [facility] Urine Nitrite NEG NEG Normal (applies to non-numeric re sults) [facility] The above 12 analytes were performed by [facility] [address] [facility], ,[place] [address] ID Date Data Source [id number] 04/25/2021 05:04:00 PM EDT [facility] Name Value Range Interpretation Code Description Data Arabella rce(s) Supporting Document(s) T3 65.42 ng/dl 60.00-181.00 Normal (applies to non-numeric re sults) [facility] The above 1 analytes were performed by [facility] [address] [facility], ,[place] [address] ID Date Data Source [id number] 04/25/2021 04:45:00 PM EDT [facility] Name Value Range Interpretation Code Description Data Arabella rce(s) Supporting Document(s) PT, No Coag Tx/Coag Tx Unk 11.7 Seconds 10.2-12.9 Judith l (applies to non-numeric results) [facility] Attention: Effeciive 01/03/2020 The nor [...] 0.9-1.1 Nor mal (applies to non-numeric results) [facility] Suggested therapeutic INR ranges for ora l anticoagulant therapy: Indication:INRPrevention and treatment of DVT and PE2.0 - 3.0Prevention of systemic embolism with atrial fib., acute OH and 2.0 -3.0 tissue prosthetic heart valves.Prevention of systemic embolism in patients with mechanical heart2.5 -3.5 valves.NOTE: The INR is only valid for patients on stable oral anticoagulanttherapy. The above 2 analytes were performed by [facility] [address], ,[place] [address] ID Date Data Source [id number] 04/25/2021 04:45:00 PM EDT [facility] Name Value Range Interpretation Code Description Data Arabella rce(s) Supporting Document(s) PTT, No Coag Tx/Coag Tx Unk 30.1 Seconds 25.1-36.5 Norm al (applies to non- numeric results) [facility] Attention: Effective 01/03/2020Please no te the change in reference range for PTT (No Coag Tx/Coag TxUnk) ResultsPrevious Reference Range: 24.9-30.6 secondsNew Reference Range: 25.1-36.5 secondsDiscrepant results may occur due to anticoagulant effects such asheparin, direct thrombin inhibitors; argatroban (Acova), bivalirudin(Angiomax) or dabigatran (Pradaxa) or direct factor Xa inhibitors;rivaroxaban (Xarelto), apixaban (Eliquis) and edoxaban (Savaysa).The above 1 analytes were performed by [facility] [address], ,[place] [address] ID Date Data Source [id number] 04/25/2021 04:33:00 PM EDT [facility] Name Value Range Interpretation Code Description Data Arabella rce(s) Supporting Document(s) WBC 6.78 x1000/ul 4.80-10.00 Normal (applies to non-numeric re sults) [facility] RBC 3.60 x1Mil/ul 4.20-5.40 Below low normal [facility] Hemoglobin 9.3 g/dl 12.0-16.0 Below low normal [facility] Hematocrit 30.3 % 37.0-47.0 Below low normal [facility] MCV 84.2 fL 81.0-99.0 Normal (applies to non-numeric resul ts) [facility] MCH 25.8 pg 27.0-31.0 Below low normal [facility] MCHC 30.7 g/dl 32.2-37.0 Below low normal [facility] RDW 15.3 % 11.5-14.5 Above high normal [facility] Platelet Count 266 x1000/ul 130-400 Normal (applies to non-numeric results) [facility] MPV 10.1 fL 9.4-12.4 Normal (applies to non-numeric resul ts) [facility] Neutrophils 43.7 % 40.0-74.0 Normal (applies to non-numeric resu lts) [facility] Lymphocytes 44.7 % 19.0-48.0 Normal (applies to non-numeric resu lts) [facility] Monocytes 9.1 % 3.4-9.0 Above high normal [facility] Eosinophils 1.3 % 0.0-7.0 Normal (applies to non-numeric resu lts) [facility] Basophils 0.9 % 0.0-2.0 Normal (applies to non-numeric resul ts) [facility] Immature Granulocytes 0.3 % 0.0-0.5 Normal (applies to non-nu meric results) [facility] Nucleated RBCs 0.00 % 0.00-0.20 Normal (applies to non-numeric r esults) [facility] Abs. Neutrophils 2.96 x1000/ul 1.92-8.31 Normal (applies to non-numeric results) [facility] Abs. Lymphocyte 3.03 x1000/ul 1.20-3.70 Normal (applies to non-n umeric results) [facility] Abs. Monocytes 0.62 x1000/ul 0.14-0.97 Normal (applies to non-nu meric results) [facility] Abs. Eosinophils 0.09 x1000/ul 0.00-0.76 Normal (applie s to non-numeric results) [facility] Abs. Basophils 0.06 x1000/ul 0.00-0.22 Normal (applies to non-n umeric results) [facility] Abs. Immature Gran. 0.02 x1000/ul 0.00-0.02 Normal (appl ies to non-numeric results) [facility] Abs. Nucleated RBCs 0.00 x1000/ul 0.00-0.02 Normal (appl ies to non-numeric results) [facility] The above 24 analytes were performed by [facility] [address] [facility], ,[place] [address] ID Date Data Source [id number] 04/25/2021 05:24:00 PM EDT [facility] Name Value Range Interpretation Code Description Data Arabella rce(s) Supporting Document(s) Lipase 162 IU/L 73-393 Normal (applies to non-numeric resul ts) [facility] The above 1 analytes were performed by [facility] [address] [facility], ,[place] [address] ID Date Data Source [id number] 04/25/2021 05:24:00 PM EDT [facility] Name Value Range Interpretation Code Description Data Arabella rce(s) Supporting Document(s) Magnesium 2.3 mg/dl 1.6-2.6 Normal (applies to non-numeric resul ts) [facility] The above 1 analytes were performed by [facility] [address] [facility], ,[place] [address] ID Date Data Source [id number] 04/25/2021 05:24:00 PM EDT [facility] Name Value Range Interpretation Code Description Data Arabella rce(s) Supporting Document(s) AST 11 IU/L 15-37 Below low normal [facility] Sulfasalazine and sulfapyridine have the potential to falsely depressAspartate Aminotransferase results. Baseline values before medication administration are recommended. ALT 17 IU/L 13-56 Normal (applies to non-numeric resul ts) [facility] Sulfasalazine and sulfapyridine have the potential to falsely depressAlanine Aminotransferase results. Baseline values before medication administration are recommended. Alkaline Phosphatase 56 mIU/ml 50-136 Normal (applies to non-num madiha results) [facility] Total Bilirubin 0.80 mg/dl 0.20-1.00 Normal (applies to non-numeric results) [facility] Blood Urea Nitrogen 12 mg/dl 7-18 Normal (applies to non-nume ny results) [facility] Creatinine 0.69 mg/dl 0.51-0.95 Normal (applies to non-numeric resul ts) [facility] N-Acetylcysteine (NAC) and Metamizole em ve the potential to falselydepress Creatinine results. Baseline values before medication adminstration are recommended. Patients undergoing treatment with phenindione will have falselydepressed results. Patients on phenindione therapy should be tested with an alternativeCREA method.Toxic levels of acetaminophen may lead to falsely depressed results forpatient samples. Glomerular Filtration Rate >90.00 mL/min/1.73m2 [facility] GFR Reference Ranges:Normal Function or [...] of Health and the National KidneyFoundation. The Elsie method used in calculating this result is traceable to [employer] standards. Glucose 81 mg/dl 70-110 Normal (applies to non-numeric resul ts) [facility] Sulfasalazine has the potential to false ly depress Glucose results. Sulfapyridine has the potential to falsely elevate Glucose results. Baseline values before medication administration are recommended. Calcium 7.8 mg/dl 8.5-10.1 Below low normal [facility] Total Protein 6.4 g/dl 6.4-8.2 Normal (applies to non-numeric re sults) [facility] Albumin 3.0 g/dl 3.4-5.0 Below low normal [facility] Sodium 140 mEq/L 136-145 Normal (applies to non-numeric resul ts) [facility] Potassium 4.0 mEq/L 3.5-5.1 Normal (applies to non-numeric resul ts) [facility] Chloride 113.0 mEq/L 98.0-107.0 Above high normal [facility] Anion Gap 10.2 [facility] Carbon Dioxide 20.8 mMol/L 21.0-32.0 Below low normal [facility] The above 16 analytes were performed by [facility] [address] [facility], ,[place] [id number] ID Date Data Source [id number] 04/25/2021 05:24:00 PM EDT [facility] Name Value Range Interpretation Code Description Data Arabella rce(s) Supporting Document(s) TSH 28.10 uIU/ml 0.36-3.74 Above high normal [facility] Concentrations of Biotin above 100 ng/mL can potentially result ininterference.The above 1 analytes were performed by [facility] [address] [facility], ,[place] [address] ID Date Data Source [id number] 04/25/2021 05:24:00 PM EDT [facility] Name Value Range Interpretation Code Description Data Arabella rce(s) Supporting Document(s) T4, Free 0.63 ng/dl 0.59-1.61 Normal (applies to non-numeric resul ts) [facility] The above 1 analytes were performed by [facility] [address], ,[place] [address] ID Date Data Source [id number] 04/25/2021 03:04:52 PM EDT [facility] Name Value Range Interpretation Code Description Data Arabella rce(s) Supporting Document(s) Progress Notes [facility] CRLICk0pWtFOQiMe32/OAZkgVJXiu5AtTWffIUm0DDcrDLNpC8QbUQO1gW7eBRF6ADzHUwFvAqOkQZG9 lbm [file] [id number] ID Date Data Source [id number] 04/25/2021 07:30:00 AM EDT [facility] [...] changes Electronically signed in PS360 by: Geovanni iSmms M.D. 04/25/2021 7:24 EDT Name Value Range Interpretation Code Description Data Arabella rce(s) Supporting Document(s) ID Date Data Source [id number] 04/25/2021 04:43:00 AM EDT [facility] Name Value Range Interpretation Code Description Data Arabella rce(s) Supporting Document(s) COVID-19 NEGATIVE [facility] This lab was ordered by [facility] and reported by [facility]. ID Date Data Source [id number] 04/25/2021 05:04:00 AM EDT [facility] [id number] Name Value Range Interpretation Code Description Data [...] are for the indentification of SARS-CoV-2 RNA. UdgLZTM-CdB-5 RNA is generally detectable in respiratorysamples during the actue phase of infection. ID Date Data Source [id number] 04/25/2021 01:27:00 AM EDT [facility] [id number] Name Value Range Interpretation Code Description Data Arabella rce(s) Supporting Document(s) TSH 44.303 uIU/mL 0.358-3.74 H [facility] ID Date Data Source [id number] 04/25/2021 01:24:00 AM EDT [facility] [id number] Name Value Range Interpretation Code Description Data Arabella rce(s) Supporting Document(s) LACTIC ACID 0.8 mmol/L 0.4-2.0 [facility] ID Date Data Source [id number] 04/25/2021 01:24:00 AM EDT [facility] [id number] R [id number] Name Value Range Interpretation Code Description Data Arabella rce(s) Supporting Document(s) C REACTIVE PROTEIN < 0.5 mg/L 0.0-3.0 [facility] ID Date Data Source [id number] 04/25/2021 01:24:00 AM EDT [facility] [id number] R [id number] Name Value Range Interpretation Code Description Data Arabella rce(s) Supporting Document(s) MAGNESIUM 2.3 mg/dL 1.8-2.4 [facility] ID Date Data Source [id number] 04/25/2021 01:24:00 AM EDT [facility] [id number] R [id number] Name Value Range Interpretation Code Description Data Arabella rce(s) Supporting Document(s) LIPASE 308 U/L 73-393 [facility] ID Date Data Source [id number] 04/25/2021 01:24:00 AM EDT [facility] [id number] R [id number] Name Value Range Interpretation Code Description Data Arabella rce(s) Supporting Document(s) GLUCOSE 93 mg/dL 74-106 [facility] BLOOD UREA NITROGEN 19 mg/dL 7-18 H [facility] CREATININE 0.80 mg/dL 0.6-1.0 [facility] SODIUM 137 mmol/L 136-145 [facility] POTASSIUM 5.2 mmol/L 3.5-5.1 H [facility] CHLORIDE 103 mmol/L 98-107 [facility] CO2 23 mmol/L 21-32 [facility] CALCIUM 9.2 mg/dL 8.5-10.1 [facility] ANION GAP 11.0 mmol/L 5-12 [facility] GLOMERULAR FILTRATION RATE 80 mL/min [facility] GFR IS CALCULATED IN mL/min/1.73m2 JUDITH L FUNCTION: >90MILDLY DECREASED: 60-89MILDY TO MODERATELY DECREASED: 45-59 MODERATELY TO SEVERELY DECREASED: 30-44SEVERELY DECREASED: 15-29RENAL FAILURE: <15 AST 28 U/L 15-37 [facility] ALT 24 U/L 12-78 [facility] ALKALINE PHOSPHATASE 70 U/L 46-116 [facility] pital TOTAL BILIRUBIN 0.5 mg/dL 0.2-1.0 [facility] TOTAL PROTEIN 7.9 g/dl 6.4-8.2 [facility] ALBUMIN 3.7 gm/dL 3.4-5.0 [facility] ID Date Data Source [id number] 04/25/2021 12:58:00 AM EDT [facility] TSYSORDER [id number] Name Value Range Interpretation Code Description Data Arabella rce(s) Supporting Document(s) WHITE BLOOD COUNT 9.7 [facility] 4.0[facility]10[facility] 4.28 M/mm3 4.00-5.50 [facility] HEMOGLOBIN 11.1 gm/dL 12.0-16.0 L [facility] HEMATOCRIT 34.7 % 36.0-48.8 L [facility] MEAN CELL VOLUME 81.1 fl 80-96 [facility] MEAN CORPUSCULAR HEMOGLOBIN 25.9 pg 27.0-31.0 L [facility] MEAN CORPUSCULAR HGB CONC 32.0 g/dl 32.0-36.0 [facility] RED CELL DISTRIBUTION WIDTH 15.1 % 10.0-14.5 [facility] PLATELET COUNT 169 K/mm3 172-450 L [facility] MEAN PLATELET VOLUME 11.9 fl 9.0-13.0 [facility] pital GRAN % 49.6 % [...] [facility] ID Date Data Source [id number] 04/16/2021 06:48:00 PM EDT [facility] Patient: SIENNA FOSTER Observation Re port [facility].VisitID: [id number] [place] [address] [phone], FRegistration Date/Time: 04/12/2021 20:14 Weight:74.8 kg (S). [...] rce(s) Supporting Document(s) ID Date Data Source [id number] 04/13/2021 06:12:00 PM EDT [facility] [...] Name Value Range Interpretation Code Description Data [facility] rce(s) Supporting Document(s) ID Date Data Source [id number] 04/12/2021 10:15:00 PM EDT [facility] TSYSORDER [id number] Name Value Range Interpretation Code Description Data [facility] rce(s) Supporting Document(s) LIPASE 368 U/L 73-393 [facility] ID Date Data Source [id number] 04/12/2021 10:15:00 PM EDT [facility] TSYSORDER [id number] Name Value Range Interpretation Code Description Data [facility] rce(s) Supporting Document(s) GLUCOSE 87 mg/dL 74-106 [facility] BLOOD UREA NITROGEN 19 mg/dL 7-18 H [facility] ital CREATININE 0.82 mg/dL 0.6-1.0 [facility] SODIUM 139 mmol/L 136-145 [facility] POTASSIUM 4.3 mmol/L 3.5-5.1 [facility] CHLORIDE 103 mmol/L 98-107 [facility] CO2 24 mmol/L 21-32 [facility] CALCIUM 9.7 mg/dL 8.5-10.1 [facility] ANION GAP 12.0 mmol/L 5-12 [facility] GLOMERULAR FILTRATION RATE 78 mL/min [facility] GFR IS CALCULATED IN mL/min/1.73m2 JUDITH L FUNCTION: >90MILDLY DECREASED: 60-89MILDY TO MODERATELY DECREASED: 45-59 MODERATELY TO SEVERELY DECREASED: 30-44SEVERELY DECREASED: 15-29RENAL FAILURE: <15 AST 10 U/L 15-37 L [facility] ALT 26 U/L 12-78 [facility] ALKALINE PHOSPHATASE 77 U/L 46-116 [facility] pital TOTAL BILIRUBIN 0.6 mg/dL 0.2-1.0 [facility] TOTAL PROTEIN 8.5 g/dl 6.4-8.2 H [facility] ALBUMIN 4.0 gm/dL 3.4-5.0 [facility] ID Date Data Source [id number] 04/12/2021 10:13:00 PM [facility]T [facility] [id number] Name Value Range Interpretation Code Description Data Arabella rce(s) Supporting Document(s) HCG,SERUM NEGATIVE NEGATIVE [facility] False negative results may occur when th e levels of hCG arebelow the sensitivity level of the test. If isstill suspected, a first morning urine specimen should becollected 48hrs later.This test has a sensitivity of 10mIU/mL in serum dfl07hAD/mL in urine. ID Date Data Source [id number] 04/12/2021 09:56:00 PM EDT [facility] TSYSORDER [id number] Name Value Range Interpretation Code Description Data Arabella rce(s) Supporting Document(s) WHITE BLOOD COUNT 10.7 K/mm3 4.0-10.0 H [facility] jay RED BLOOD COUNT 4.20 M/mm3 4.00-5.50 [facility] HEMOGLOBIN 11.1 gm/dL 12.0-16.0 L [facility] HEMATOCRIT 33.5 % 36.0-48.8 L [facility] MEAN CELL VOLUME 79.8 fl 80-96 L [facility] MEAN CORPUSCULAR HEMOGLOBIN 26.4 pg 27.0-31.0 L [facility] MEAN CORPUSCULAR HGB CONC 33.1 g/dl 32.0-36.0 [facility] RED CELL DISTRIBUTION WIDTH 15.7 % 10.0-14.5 H [facility] PLATELET COUNT 358 K/mm3 172-450 [facility] MEAN PLATELET VOLUME 10.7 fl 9.0-13.0 [facility] pital GRAN % 62.7 % 50-80.0 [facility] [...] [facility] ID Date Data Source [id number] 04/12/2021 09:16:[address] [facility] spital TSYSORDER [id number] Name Value Range Interpretation Code Description Data Arabella rce(s) Supporting Document(s) URINE RBC 1-3 /hpf 0-3 [facility] URINE WBC 0-2 /hpf 0-5 H [facility] URINE EPITHELIAL CELLS 1+ /hpf 0 [facility] URINE BACTERIA 3+ NONE SEEN H [facility] ID Date Data Source [id number] 04/12/2021 09:15:00 PM EDT [facility] ital TSYSORDER [id number] Name Value Range Interpretation Code Description Data Arabella rce(s) Supporting Document(s) URINE COLOR. [facility] URINE APPEARANCE CLEAR [facility] GLUCOSE (UA) NEGATIVE mg/dL NEGATIVE [facility] URINE BILIRUBIN NEGATIVE NEGATIVE [facility] URINE KETONE NEGATIVE mg/dL NEGATIVE [facility] SPECIFIC GRAVITY,URINE 1.020 1.005-1.030 [facility] URINE BLOOD TRACE NEGATIVE H [facility] PH,URINE 5.5 5.0-9.0 [facility] URINE PROTEIN NEGATIVE mg/dL NEGATIVE [facility] UR[facility] UROBILINOGEN NORMAL(0.2-1) mg/dL 0-1 R [facility] URINE NITRATE NEGATIVE NEGATIVE [facility] URINE LEUKOCYTE ESTERASE NEGATIVE NEGATIVE [facility] ID Date Data Source [id number] 04/02/2021 12:00:00 AM EDT [facility] Name Value Range Interpretation Code Description Data Arabella rce(s) Supporting Document(s) SARS-CoV-2 NEGATIVE [facility] This lab was ordered by [employer] [facility]-COVID19 and reported by [employer]. ID Date Data Source [id number] 04/02/2021 12:00:00 AM EDT DAVID ([facility]) Name Value Range Interpretation Code Description Data Arabella rce(s) Supporting Document(s) SARS-CoV-2 (COVID-19) RNA [Presence] in Respiratory specimen by MELINDA with probe detection negative negative Sars-cov-2 [facility]INC[facility]ON ([facility]) ID Date Data Source [id number] 04/02/2021 12:00:00 AM EDT DAVID ([employer] [facility]) Name Value Range Interpretation Code Description Data Arabella rce(s) Supporting Document(s) ID Date Data Source [id number] 03/31/2021 07:42:12 PM EDT [facility] Name Value Range Interpretation Code Description Data Arabella rce(s) Supporting Document(s) Discharge Summary [facility] WXVSSs9bRfZMQfCv56/PMMvqQWEfd1KfWWboIEe9AAnwBNExX0ZaAGB2bT3xAWX1BZtAWoMnHkHoXSBo [facility] [file] MD8qDHc+Ul7Pv3DwmkI4wzNaQNu1LNX6EP7AJAKKT6LQDe== ID Date Data Source [id number] 03/27/2021 08:58:00 PM EDT [facility] Name Value Range Interpretation Code Description Data Arabella rce(s) Supporting Document(s) Nursing Note [facility] QTXSJr0jPkPUXjXp08/VKNtpBHNnr4RkCQitTDa1FEfzHKGrL2KfMDX1eV1yELM7TZvRMjJpBjMgXBU9 lbm [file] YvjsCHbnOABXAf4O ID Date Data Source [id number] 03/27/2021 08:57:40 PM EDT [facility] Name Value Range Interpretation Code Description Data Arabella rce(s) Supporting Document(s) Care Plan [facility] JPHRZo5aAmXYTdIw89/NZTocARVnv2VlZJkePPr0VWodXCBhY5JbFZW1bU6nVWK7SKoHDcShOpJcDOI6 lbm [file] CoBC1IUm9TPhD5MTN5qMIwMv1PAfFzGQXYKwDmSW5MGZy= ID Date Data Source [id number] 03/27/2021 11:56:07 AM EDT [facility] Name Value Range Interpretation Code Description Data Arabella rce(s) Supporting Document(s) Nursing Note [facility] TZESTb6cXhNLAeSg91/DSWtoYWFdz2FdPCrrXHc6KYrxRHDwT2RnLAH4tK1zFML6EKjUUuGuJyElDVR2 lbm [file] 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/VbYra/86AbVU5tigz9muPRMeFUB6KZdSeb6m2gMdrjh/BvRC0+y6th62dg8cMp7qy8aY/DPMscSF [file] 9GDQo= ID Date Data Source [id number] 03/27/2021 10:35:44 AM EDT [facility] Name Value Range Interpretation Code Description Data Arabella rce(s) Supporting Document(s) Perioperative Nursing Note [facility] AKTNNe4tGjVMHwVj46/NHMkmXFXge9PcHUmhEXk6VQaxHGHmT8RnMWW5bR4yTNQ0WQeWTwGuWlRtUNG7 lbm CfQyhYHfFaBPCpDluSZvZwVEkhAgbyxLYmHP3QuXB6EGWwZ40tBARzSKYbX3OxXMy3DW3+SXfxTYQ1vs RafR1ONYBAZ9rd5eJHeA+wf+LcLhQALXj9KSWZdoyZNHYkft/LUYFbd0lDpFCQJczSF5zs8ZWTmSvgTu pr7pNW51bXTobX9p9lcHLFCRJv//AoFIPpEt6+gcrN Jur75pDyPnePgNNUKdtXv90WwIMiIMP7fKMV6PkboEpXJRLxLC6jbHSUfua9NXCwF0AhZRLPSCMiGut2 QDjTeSFKEuunlKM+JhVE466vJCevhSqyGf5qPhv9GB9qbYPeMWh8KFpxtlhH1je5pruUrS9mJ81mt4Po RQvIt2+Mvm/iYj5Pd8YOpuHnOw+cY+sRynWBE1Hgae XT9d5kqmv4wZQxWFpLrMG0ZappgHUwAjDSGDRBS7II76kd2BKi7m7vRfgZTm+GiFBJb7wcO1agIE4ZzD cSfMq2PTjdbq6lofBwSS9gCMQ0ME/wyjmKS3HbgFKK1f3nGGOdZm0x9Bqc9D09w730GEpcgFTYyfTcez PhEa7hFFxyyuJ/weS1PCrAazSGSUxQDHUz4fjw7UZw REYES+yWI9xYOz1u5zH7weRaR9Z6Zr9J0vGrfyK5g3N6P6oet5JpSE/X4hSG4nfjnGUtwShq04EYPC+Lt3E [file] SOYdEgUrT4EFjjJYMQVs2N ID Date Data Source [id number] 03/27/2021 10:29:41 AM EDT [facility] Name Value Range Interpretation Code Description Data Arabella rce(s) Supporting Document(s) Perioperative Nursing Note [facility] ZBGTZg7qVvTSBmIk68/WWTfiXEDcf6NzSAnhBDf6ZRpnVFKeH2MsPUT8aT6vWRB4GQiZJsKtKdLvUAT8 lbm [file] IyYsAR9BWDg= ID Date Data Source [id number] 03/27/2021 10:29:01 AM EDT [facility] Name Value Range Interpretation Code Description Data Raabella rce(s) Supporting Document(s) Anesthesia Postprocedure Evaluation [facility] RXYFSn5wOgPYZkZb22/BBMjxXGPcf8ClVTauQWb8YWrqCSXvW8HcPFN4zC2tNSZ3JWbJCzKzGvAdZCV8 lbm [file] Commercial Relief Driver+lEQ4heDy1ABibPr6Jwh8sLst3m6fC/IaW6ybd1taG5N7jAd2WWt5wCS4M55iHK/SJinc0AltZR+NE e7sZpSZwt8IWVICh0uy2LUUkpae/2awDyGcnCOO45v zXWWntxriyWN68BoVvuabvKpuLYr7t7Lg92oFA9iqTQl+/1zkX9Cia4ZiT7DYqJ5sBo6aLKBIvyq3q5v Epd0hNO9cGKxqnp22TTsA4WcfUc5Qh4frY25vNE0ru9zo6DchyBanB0ysVBxWoLOZDD/Qub7iTPVjJ0X X3oRc131bWB2dFOM9AsneQHyZ6eBgocnFhYc8nJILU 6tV8hWynRjNuRawQN03F6xBZaVd/7bW9qVtA9vDkg4anVAaLFgd+QWjGPWw6/PZCeec7oiWzP+5Mx96G J69gCGZlAtS27o7oVqfqbeLeE7IlIRG4AgAfQraSKImzXhamdTWcnjAnqimRLF5dz72C4xr00eG9J1Mw GVA0Kpr8oKJ+l69DXc8uGiUvJ8PwppsRatyoFGlA2w fZBOhbhIpvKlsE9cMgW4hdwQ2E98T37HU7jd9o7wVG3gg2bu2NIFZrQ7T6VD6bOeITWRfm6f63GsW4NM 7qEc1lsbJ2vLim+1sEo994VxVzLW/SHwxFM0+GqgTrvIt9stgNm9iBPHIb3M0nWJtgAU18nrRjWyJDf1 3qnoxlALBdXykU0UYG30Bo/vlad/wWhGXFeZM9ppeoN [file] Rg0K ID Date Data Source [id number] 03/27/2021 10:28:51 AM EDT [facility] Name Value Range Interpretation Code Description Data Arabella rce(s) Supporting Document(s) [facility] UFJTAw7fOjQXCsEh73/CAPstELEvt5MrEBthTOn2KSmxNVEnW9VeVXX3xK2qCPB4VJnIBhXcVrFnTOR9 lbm [file] AlNID3WRUcGLQ5WFXvBRYuMmJxAR2USx9UEeJ0YBF9mMJdJh5WZyKmOnMQDhChSU8TTRz= ID Date Data Source [id number] 03/28/2021 09:48:00 AM EDT [facility] [address] [place] [address] [employer] [facility] CLIA# [id number] Surgical Pathology ReportPATIENT: SIENNA FOSTER CASE NUMBER:[id number] #: [id number] Date Collected:03/27/2021ccount #: [id number] Date Received:03/27/2021OB: 1980 Age: 40 y.o. Date [...] the same cassette.B. Received in formalin, labeled Siennaeder Foster, left random colon biopsy, consists of three opaque focally red vascular gli steningthin biopsy segments of soft tissue that range from 0.15 to 1.1 cm. They each have a thickness less than 0.1 cm. They are totally submittedin one cassette. AP/jarodk Electronically SignedBy:ICD: R89.7x2 Wai Castañeda, MDCPT: [id number] PathologistI ATTEST THAT THE ABOVE DIAGNOSIS IS BASED UPON MY PERSONAL MICROSCOPIC EXAMINATION OF THE SLIDES (AND/OR OTHER MATERIAL), AND THAT I HAVE REVIEWED AND APPROVED THIS REPORT.PERFORMED AT: [facility] [address] [place], [place] [address]THE TECHNICAL COMPONENT WAS PERFORMED AT [facility], [address] [place] [address].MARKETING PROFESSOR: WAI CASTAÑEDA M.D. [facility]# [id number].SIENNA FOSTER Page 1 of 1 Name Value Range Interpretation Code Description Data Arabella rce(s) Supporting Document(s) ID Date Data Source [id number] 03/27/2021 09:15:49 AM EDT [facility] Name Value Range Interpretation Code Description Data Arabella rce(s) Supporting Document(s) Anesthesia Preprocedure Evaluation [facility] BJDVIs2mVdHBYbQk68/EDLtgUQIxi6SnKMzhHTm8OBqsQHXkD2LoAXG9bQ8xGDM4QCyWMqGyQbNcUIH0 lbm [file] product manager [file] ICAgICAgICAgICAgICAgICAgICAgICAgICAgICAgICAgICAgICAgICAgICAgICAgICAgICAgICAgICAg ICAgICAgICAgICAgICAgICAgICAgICAgICAgICAgICAgICAgDQogICAgICAgICAgICAgICAgICAgICAg ICAgICAgICAgICAgICAgICAgICAgICAgICAgICAgIC AgICAgICAgICAgICAgICAgICAgICAgICAgICAgICAgICAgICAgICAgICAgICAgDQogICAgICAgICAgIC AgICAgICAgICAgICAgICAgICAgICAgICAgICAgICAgICAgICAgICAgICAgICAgICAgICAgICAgICAgIC AgICAgICAgICAgICAgICAgICAgICAgICAgICAgDQog ICAgICAgICAgICAgICAgICAgICAgICAgICAgICAgICAgICAgICAgICAgICAgICAgICAgICAgICAgICAg ICAgICAgICAgICAgICAgICAgICAgICAgICAgICAgICAgICAgICAgDQogICAgICAgICAgICAgICAgICAg ICAgICAgICAgICAgICAgICAgICAgICAgICAgICAgIC AgICAgICAgICAgICAgICAgICAgICAgICAgICAgICAgICAgICAgICAgICAgICAgICAgDQogICAgICAgIC AgICAgICAgICAgICAgICAgICAgICAgICAgICAgICAgICAgICAgICAgICAgICAgICAgICAgICAgICAgIC AgICAgICAgICAgICAgICAgICAgICAgICAgICAgICAg DQogICAgICAgICAgICAgICAgICAgICAgICAgICAgICAgICAgICAgICAgICAgICAgICAgICAgICAgICAg ICAgICAgICAgICAgICAgICAgICAgICAgICAgICAgICAgICAgICAgICAgDQogICAgICAgICAgICAgICAg ICAgICAgICAgICAgICAgICAgICAgICAgICAgICAgIC AgICAgICAgICAgICAgICAgICAgICAgICAgICAgICAgICAgICAgICAgICAgICAgICAgICAgDQogICAgIC AgICAgICAgICAgICAgICAgICAgICAgICAgICAgICAgICAgICAgICAgICAgICAgICAgICAgICAgICAgIC AgICAgICAgICAgICAgICAgICAgICAgICAgICAgICAg ICAgDQogICAgICAgICAgICAgICAgICAgICAgICAgICAgICAgICAgICAgICAgICAgICAgICAgICAgICAg QUQeZXXaWAJcWRQnBKKxDLGnOLOuHRJoVHFqWJBaCMEoTVNwOUHaACAjYMIjBJt7B8irXTUsDCKsMH3b IYb9Bd5+NPwBSkQyOWS4zlEdrP6ERW1ib2VfFGprRD Lhl8XiJDm0KM2RDDIlAQztRO6AEShxqr4ISYZxTZQllRYWc9haVsHyBVV8FAZpJctwND2JHGJeP3nkok DbONAgCGAJUUvsHQGZMO3TFiCsT8LmxL92UMAUWl9+LWydhbWtLvdXVjD5MBDpj2JwQCy1HF4HHCKeEp fgf9GkYxlwETSDPGnqCH7UTHZ5XMX1EARfHp7KYDZd U480vmKcMU5RUl6TIeImSY8fmw9TKcrtKBEaPosZWzc4FBahPV4DvFJqEMuUaeBlrUjxu0dxEAHcRUZf i6FdCMPbWRULfgOdhFE3oK8gIJY8HWSbIXGrSGXrQdEcBS5caiiuZFQcIJHsJA8fQQ3zIAUyCNT4UfLs QNFNUH2YCLSbOSBinOSxUTMlJGHBQY4GMHvsMPH4Jv ogdvFlzAJcKGtpRD9TAXKfdgKtEsakABAVKKe+Gl6ZNM0uq1UuGYaeJXCjMM6dtj0OKPoZWxBxM9J1yX MoX3F1KPrgVf4YSIPjKLYhIuTzBQRBQLglQS7SBB3btvH6IO0IgAZgWLZyEWLfgHWaUUs9E84seWHnPH kuFY1KGLI+Mau+Ny6JXPGgFFMeTVHyCdEjNXOSUuLg D4YvL7JPs3XwJ0OmRY58oDblkiWaDQriWT2IFE4mPXCwVCFBTB2BeSTfjR7krtShRaQmWTSPKwNeN09i xSYbHLKqICG7PBPsLv3UTXLnY3VgfxXqjBmmrnRoHFKgNZWAML8ODLcpjfPsuATnjRtlMV35eWdwSI9R Ks2QXnTzXB9fex5RyWJbPx3DJHFcEG5HKRMfFHHlKE PaZEG4OUTnXwDeQKktMMSwILTwVJG2IKOoDNEqWS4LQaGeBRMxUxD4LcrdAGAeVTQgjm6EYUMlLSKvAt S9MTIpOMRiYZAwWKonLQXsPPSkDDL3PLBmBYRjIL2JYsPkNBPsSXIcBOqjHQSlCVYgvi6DIMCiABQsHd ZtMdTnUZFwBBHwIQzaCVKyFBJrLDF9JWKzMPRgQY8Q PpSzHICzNXOdYTQyGJKpWOOicy3BIHWbKRWeIXQmGVVxDASnXPClHKpxKHMtZMY5RwL4CWDrSHDhOG8M NgRcPDTpCFX2XXCqMFYrPNSrsw2AVMYbFDUvWSL8FIMnHLCcGOPlPKdgMBOrOSZ1HsJjNZVrHYFsKM1Z WwTbJYEeWED0GsIbMXSxZJQicw4UOENqVZVeHSN9QF IlVWBwKVWoLNvdFLPdXBA7TOBjQUFuPQRaKL6GNbZwAHYuUCu1EMiyDFMaSVAnqt4ZVMDwFORaGFw9HA WwBGZlACIqQNqcYCDwYQS7PCc0ZYBoATSuBB1OQnOoLQTfDeBrEwhbOGOjDOLusu8JQIAcWTJqDNHjOe CjGFJzMZJbAGoqDDDuRIEwQhm2LLUlHFDwPO7OHvZd LOYnIhPyOxkmBNPqXIKiin4RFGMzERNzEWMvBCQkXPTvXMYvSXwhZURxHROiMhA4KQJdCZYkAY5VVyMk MUScQvZvZWMvNAIqBEHvdw2PPYQiWCUsJgO6SKHdDGCmQTQuGJevHZVbWFAsOlI2LPSmOHXgIR0PQxPj AJJtQsO1NsBaSRNfHEWqoz9AnMYuwTzxdc6HABpQWc 0QqAcfUREtUHzhGa4mvMAlFTIeRFLGGc9UqqZmFDGwABREHIwhNWViCRJ4KHC7YYN0KXDvEGYoUHtgMB vbCVy3UTTdDGYoBYRoZrG5VFIeSVflRpL4NoP1OAB8KPX5OZKvEJofOXUsQ2L9BvU+GA0rOOp+Pg0Kc3 WigvD6dgGyLXliRYU7FW1TYWIPN8GZGb== ID Date Data Source [id number] 03/27/2021 01:32:01 AM EDT [facility] Name Value Range Interpretation Code Description Data Arabella rce(s) Supporting Document(s) Nursing Note [facility] KSDJGq5xPxENYzUo14/HUZqrSVFkw1NqZTbaMWq7NVgrGKXtU3CqTMT5gS0nLJL3HSaMTnEcScQjWIU3 lbm [file] G7GHUuPMW5CeH3SLH6DKdbEsVbSA1CEi1APwC7DMU2kMQmJz1NJrapJE7RXFIGK7GJKh== ID Date Data Source [id number] 03/27/2021 01:30:51 AM EDT [facility] Name Value Range Interpretation Code Description Data Arabella rce(s) Supporting Document(s) Care Plan [facility] TBAJGn8iQiLKZsQq62/BBVcgQCEra9BbUJqcFCj2QSvsLKFeL7OyKLU3cB8lFRI8TGwFGhLaAvSmBNT4 lbm [file] ShMajmJKSkZLK6DHd9CXvtLlbjB3HgUTd+JF8bARp+Fq5Rj4NnxfY9vbHaWFu3ZCr3OGphDJUKEd4R ID Date Data Source [id number] 03/26/2021 06:10:50 PM EDT [facility] Name Value Range Interpretation Code Description Data Arabella rce(s) Supporting Document(s) Nursing Note [facility] DRSXAq7aJtHATtBm85/NWAeoZEVqy9EqVObeWJl8HCnmYBQeK0YmFUY3uP9kHSD4YJvHUjEuOrHbUCV3 lbm [file] npBSTJLe5H ID Date Data Source [id number] 03/26/2021 06:01:18 PM EDT [facility] Name Value Range Interpretation Code Description Data Arabella rce(s) Supporting Document(s) Progress Notes [facility] KLQZYw1fOsXHTiYa82/TSDhnREFvk0XoMBthNTh3FZrlLMVrZ0NiQKY0xL5uPNB8EYjXRgAgQpTdEON5 lbm [file] N0QKZ0XYwiPTQOJu0M ID Date Data Source [id number] 03/31/2021 04:38:00 PM EDT [facility] Name Value Range Interpretation Code Description Data Arabella rce(s) Supporting Document(s) Calprotectin, F <16 mcg/g <=50.0 (Normal) Normal (applies to non-numeric results) [facility] Test Performed by:[facility] [address] [address]Ggu Director: Rashawn Vides M.D. Ph.D.; CLIA# [id number] above 1 analytes were performed by [facility] ([id number]) ID Date Data Source [id number] 03/27/2021 11:30:00 AM EDT [facility] Name Value Range Interpretation Code Description Data Arabella rce(s) Supporting Document(s) Campylobacter Not Detected Not Detected Normal (applies to non-nume ny results) [facility] Norovirus Not Detected Not Detected Normal (applies to non-numeric r esults) [facility] Rotavirus Not Detected Not Detected Normal (applies to non-numeric r esults) [facility] Salmonella Not Detected Not Detected Normal (applies to non-numeric r esults) [facility] Shiga Toxin 1 Not Detected Not Detected Normal (applies to non-nume ny results) [facility] Shiga Toxin 2 Not Detected Not Detected Normal (applies to non-nume ny results) [facility] Shigella Not Detected Not Detected Normal (applies to non-numeric r esults) [facility] Vibrio Not Detected Not Detected Normal (applies to non-numeric r esults) [facility] Y. enterocolitica Not Detected Not Detected Normal (applie s to non-numeric results) [facility] Enteric Pathogen Panel:Testing performed by reverse postal mail carrier, PCR and array hybridization.A negative test result does not rule out the presence of diseaseThe above 9 analytes were performed by [facility] [address], ,[place] [address] ID Date Data Source [id number] 03/26/2021 02:23:09 PM EDT [facility] Name Value Range Interpretation Code Description Data Arabella rce(s) Supporting Document(s) Progress Notes [facility] EJHTNu0hXhVDPuXs21/RDGreWZTnf8PxBWhwWKe7ZLurGDAoS1NuAFB5rV2sMTL7SJmCSqHvRzYlUSX0 lbm [file] UzIkNuL3MCzmVAR2PNQnNEBnSob+CJ7gSFs+Da0Wr9PzovF2wvGrGTntQyF6Gp1LIGUJH9GCUt== ID Date Data Source [id number] 03/26/2021 12:38:41 PM EDT [facility] Name Value Range Interpretation Code Description Data Arabella rce(s) Supporting Document(s) Care Plan [facility] QECZHt9xKwLVRuQk60/FZSueHWJkh0SpACjaPJp7JDvoYKAjL5JkKRG7cV2iGZH7QYeCAiNzOpFmYBV2 lbm [file] josé miguel/VnCugzHbVNoTqN+ihODrMRjpKkf6mjHs2MtZgxWidkSJ57XA7Q8aQ0KjNPgQ2QN5SZPuVm3uZ6/5 [file] power press supervisor+gHmmaHdLfiE92P4s8Az5IP/W94iTTaDZ9PGiS2Wa5Ay424XGmay7jokku/0L/Nk8MMNca3fbHc/l [file] AgICAgICAgICAgICAgICAgICAgICAgICAgICAgICAgICAgICAgICAgICAgICAgICAgICAgICAgICAgIC AgICAgICAgICAgICAgICAgICAgICAgICAgDQogICAg ICAgICAgICAgICAgICAgICAgICAgICAgICAgICAgICAgICAgICAgICAgICAgICAgICAgICAgICAgICAg ICAgICAgICAgICAgICAgICAgICAgICAgICAgICAgICAgICAgDQogICAgICAgICAgICAgICAgICAgICAg ICAgICAgICAgICAgICAgICAgICAgICAgICAgICAgIC AgICAgICAgICAgICAgICAgICAgICAgICAgICAgICAgICAgICAgICAgICAgICAgDQogICAgICAgICAgIC AgICAgICAgICAgICAgICAgICAgICAgICAgICAgICAgICAgICAgICAgICAgICAgICAgICAgICAgICAgIC AgICAgICAgICAgICAgICAgICAgICAgICAgICAgDQog ICAgICAgICAgICAgICAgICAgICAgICAgICAgICAgICAgICAgICAgICAgICAgICAgICAgICAgICAgICAg ICAgICAgICAgICAgICAgICAgICAgICAgICAgICAgICAgICAgICAgDQogICAgICAgICAgICAgICAgICAg ICAgICAgICAgICAgICAgICAgICAgICAgICAgICAgIC AgICAgICAgICAgICAgICAgICAgICAgICAgICAgICAgICAgICAgICAgICAgICAgICAgDQogICAgICAgIC AgICAgICAgICAgICAgICAgICAgICAgICAgICAgICAgICAgICAgICAgICAgICAgICAgICAgICAgICAgIC AgICAgICAgICAgICAgICAgICAgICAgICAgICAgICAg DQogICAgICAgICAgICAgICAgICAgICAgICAgICAgICAgICAgICAgICAgICAgICAgICAgICAgICAgICAg ICAgICAgICAgICAgICAgICAgICAgICAgICAgICAgICAgICAgICAgICAgDQogICAgICAgICAgICAgICAg ICAgICAgICAgICAgICAgICAgICAgICAgICAgICAgIC AgICAgICAgICAgICAgICAgICAgICAgICAgICAgICAgICAgICAgICAgICAgICAgICAgICAgDQogICAgIC AgICAgICAgICAgICAgICAgICAgICAgICAgICAgICAgICAgICAgICAgICAgICAgICAgICAgICAgICAgIC AgICAgICAgICAgICAgICAgICAgICAgICAgICAgICAg COZpEKp6C0leUXKpXDQjBN1nZEu9Qs4+IKhWEjShKSS7ldVvpL3SIG9xi7MmUAssNALps5GpXEx6XE8Q BRWfDEieAL9OXZvfru8ZNSToFDSauRODk2mgXsGjIFH2XKItNhwsOJ0HLOGrD6cmjkUvGEKoCNPAPBpj EMLTOY3TWjJmC2SwoV22NRQYLu4+DQplbmRvYmoNCj L9FTIya7ThERm3XB9BMLRfXpmbf7ApIdriQAQREUgtZE0ZHMU2YYU2WMUoUw7VTPBjV213ffLgXL7BKa 8HDrLeBR0zpv1OTrscNLPkWyiMOyl2QAjoZY8TtXBoKHcQHCRsADXiIP8mRvfhM3Ngo0YmipFeHAFVyb 8bUDHlEIHDIdUqnRM0OoK1HiNsPgCpWDW7JmbuOV0f OKxpGI3YZHQ8TCkhVFDdUTVkK1lYIeMeXIleZNAsaEtwNQ0FPdAgI3YisjNtiCYsNxJfZVVEMo4+DQpl ppVyJipQXxM9VYNgz5HuLFc0JN2MNZCeYQaqUO3GXXDmaC7tECusCN7WAxBuJLUcLAZQAlTwC56ygDKp SDe3E5HiXyHlNNNkQzvgNIKiEWymSxJzEJMjVqTaBP ogID4+ID4+ABvoXF1IGQkhuaNaSUVjOm6LAZPkRLVaUD3fCGIrAUFbM7U6mZffRSKKYlSaC2ncvzsbUF 2oLOJhB695mWkddyPlXTN5LJBmXz3ACAXiQDY6NETwoRZiZcHtUHOVERglJL2FqBNlNBX8aI4pWCabGD LbJZTgF0aRAiHsiFedTZ14iYxvbzMyoXOjSBw+Pg0K QH6lc2BiOLl4dzNsQMyaYODyUGwsVRXeNUCsNBLmAAQ0PQG3YWUBEaWfHCQqPDPoJGjbCLGnUTGnxw2X HYAjECFaHZXfKuAcYCXtBSJdTXhgUVEbGUUvWOr3HVEcIMXeBB6HPpOhVBViEKNwCBbsVJJuONHdun1X MDAwMDAwMzMyOSAwMDAwMCBuDQowMDAwMDAzNTMzID ZnPPNyLY7XGyRfJTPxAEP5RuznQLGkTVErki8XLWYrLBVpVXL2IEQoIWGyFZRyQTpfXBJeYRQ6IkQ7IP ClRKOxIT5YDhVyXDOfQMP0MUNaRQQvLMHohn6SUALtGVNbXlXmEcWuJZIqGTEyXUtlNRKuEBT2BYw5RP ItAYJaSL9UVfClZDLuGIeeTTUrDHHoQFIwlz1DQRGf FHNcQYR5UqJhPXZxKEZuYSpzYUBpJGZ2AtI8HJOmTTIeBB4IUlZwJKLvANb9ElgmHPMjMGVupd6OWISb RYMcTBxpRaQyTWDqEIIrAMdqHFIqWUJmEax0WFEyKBUcTL5UXzSaJFQiKWM3GKLyXJGkCADimc4UBYCz NKQfFEY7FIUbPUWkSOYsFCloMWLlYZL9PBN2QMWyZB JfLX6RSdEtTKYdEwJzUYrgNFZiVPByak3OLTIfKJKxVRJ5CsVaBIEkTAZeBIwzFNGvPFFsMCDfREUmGJ UuJG2AEzYvLXHzKbPlEDYuYNSjMGXuqq4ALIGeKJBsFXptKJGeDCYdNWPvRRycNWAhWFAqGDo7AXLjBO NcFY0GSjOdBOKpKvAsZPkcBPNzGNVjku6SRWLxPSGx LxV8HrCbVXGoGFZkVSw8slWaeAKyWHv8PU6CD0QzbuAeNkLBUr9Wp809PTC0WEBmWo4AN8heZd3aSQTz DFLFEk9ARKi1NvYbVXU3KpT3ASddJpG7HmTbKTu8YXCqZ2ZlIZVvRib+WRmvM4O7Tut1UTReAHOyOjdy OvNoBqHmZXTwRJSaVICnWI4fNWAEHb8+CJaeeNGcfQccJOFTBvSgNxFnPFxbYMQIVx8T ID Date Data Source [id number] 03/26/2021 05:02:00 AM EDT [facility] Name Value Range Interpretation Code Description Data Arabella rce(s) Supporting Document(s) Blood Urea Nitrogen 5 mg/dl 7-18 Below low normal [facility] Creatinine 0.79 mg/dl 0.51-0.95 Normal (applies to non-numeric resul ts) [facility] N-Acetylcysteine (NAC) and Metamizole em ve the potential to falselydepress Creatinine results. Baseline values before medication adminstration are recommended. Patients undergoing treatment with phenindione will have falselydepressed results. Patients on phenindione therapy should be tested with an alternativeCREA method.Toxic levels of acetaminophen may lead to falsely depressed results forpatient samples. Glomerular Filtration Rate 81.00 mL/min/1.73m2 [facility] GFR Reference Ranges:Normal Function or [...] of Health and the [employer]. The Elsie method used in calculating this result is traceable to [employer] standards. Glucose 82 mg/dl 70-110 Normal (applies to non-numeric resul ts) [facility] Sulfasalazine has the potential to false ly depress Glucose results. Sulfapyridine has the potential to falsely elevate Glucose results. Baseline values before medication administration are recommended. Calcium 8.0 mg/dl 8.5-10.1 Below low normal [facility] Sodium 140 mEq/L 136-145 Normal (applies to non-numeric resul ts) [facility] Potassium 3.6 mEq/L 3.5-5.1 Normal (applies to non-numeric resul ts) [facility] Chloride 110.0 mEq/L 98.0-107.0 Above high normal [facility] Anion Gap 6.7 [facility] Carbon Dioxide 26.9 mMol/L 21.0-32.0 Normal (applies to non-numeric results) [facility] The above 10 analytes were performed by [facility] [id number], ,[place] [address] ID Date Data Source [id number] 03/26/2021 05:02:00 AM EDT [facility] Name Value Range Interpretation Code Description Data Arabella rce(s) Supporting Document(s) Magnesium 1.8 mg/dl 1.6-2.6 Normal (applies to non-numeric resul ts) [facility] The above 1 analytes were performed by [facility] [address], ,[place] [address] ID Date Data Source [id number] 03/26/2021 04:45:00 AM EDT [facility] Name Value Range Interpretation Code Description Data Arabella rce(s) Supporting Document(s) WBC 4.62 x1000/ul 4.80-10.00 Below low normal [facility] RBC 3.66 x1Mil/ul 4.20-5.40 Below low normal [facility] Hemoglobin 9.4 g/dl 12.0-16.0 Below low normal [facility] Hematocrit 30.0 % 37.0-47.0 Below low normal [facility] MCV 82.0 fL 81.0-99.0 Normal (applies to non-numeric resul ts) [facility] MCH 25.7 pg 27.0-31.0 Below low normal [facility] MCHC 31.3 g/dl 32.2-37.0 Below low normal [facility] RDW 15.9 % 11.5-14.5 Above high normal [facility] Platelet Count 232 x1000/ul 130-400 Normal (applies to non-numeric results) [facility] MPV 10.8 fL 9.4-12.4 Normal (applies to non-numeric resul ts) [facility] Nucleated RBCs 0.00 % 0.00-0.20 Normal (applies to non-numeric r esults) [facility] Abs. Nucleated RBCs 0.00 x1000/ul 0.00-0.02 Normal (appl ies to non-numeric results) [facility] The above 12 analytes were performed by [facility] [address], ,[place] [address] ID Date Data Source [id number] 03/26/2021 12:22:38 AM EDT [facility] Name Value Range Interpretation Code Description Data Arabella rce(s) Supporting Document(s) Nursing Note [facility] XRBQBb0gPnKETxPe45/GNJdyYRXqr4VmDIeqUFl2FHjdKXZbH7XlRIZ8aB2jNHP5CLsAPfAfZiMcBQN3 lbm [file] TlJuVlGK7GCc9ONaG6PQU2mXBjBt6RNvkcCK1NDNTWG9WIFh== ID Date Data Source [id number] 03/26/2021 12:17:58 AM EDT [facility] Name Value Range Interpretation Code Description Data Arabella rce(s) Supporting Document(s) Care Plan [facility] EGZISu4nTpPSDoYl94/KAOmfOCXiy8PuBQjuQWt7OHxoVFXcR6SaBJZ1uX8dSUB3GKdQElMcEmTtRYJ2 lbm ReRlmYDySiAQJnKvqMLfCvTOdpZitzqSTkDS8CeDF9UJNvL99mWAUaKRQkU3UgKUD9HYc+Ul1VEVBqqA PdFC8XGlgQ4IzPn0d2RV77rp7HgfPmiZ3NSJH35zV6ik8rAd+mz1kwuEZQ40DWVbTSmp0qVZC0x8pXKa f2dB8FXnY+O2V450UMFkk3pXaPRcVoe/J//VWnkvUm 4Hsk0WHYDEvTOc/XWOTMkiV9h1C/LuO9WfzfuTSRDfqaRtpeA8blYvgOjx8tZuBXAmy2MzaNLJ2yEz7n cN787YVVF1az9I1p67PyopCKQnjxDolb//c/10F6w4kOpQCuk8kyBeSemwlyzGoqcWDjzhxgfwegD1vk lbj2xzcnl5mXT+nsts70Zz/uvd4L6J/r8SRFSvFOyi 4mpJHFM8dTvaJGq0s1FVewNxetEJ4oCYXY+2fGQLLyE5lj2RAHZIMwLGlPOb9jwBgANzYtpqmCEpRRjw ousoZ/Vs2Lu/3kFYg27xdRBwNexM5Ta5Q/J+Jackson+saVrvQZ1ITfPAq6aOdJfl2qnkmZBxsi+Q+jMTtfFl mfz8oHfl64FHafbCfv64DHDCpQXZL8AgYB3/Ztf9Q9 4ZaVKCW5ksmHBlDrq8oxNSSqZVtlfhCUVsEsUNfBu/J5IKKYlr2Q8LHQ2QaON2jvwJbIn6o/anhOw5Eu 3m/V+DWPN+LQdGDavrrlcc8AzvnpXb12lmkdqJQ7vlbgOy7Tn6agk0PSqY/d5ZRQ+uXOr/K+Gz77qA6A 4qrb75i20GM/Qm1nhrl7xclxLRlgegAqZehbjwq1AB [file] LeCEHePEYsIoJwRaq5FwI8ATSoMWKaPnRwXA3ETb4MCkT8LNT2sHChCz3VMZe9Oy3AYFADV2IQNd== ID Date Data Source [id number] 03/25/2021 07:13:18 PM EDT [facility] Name Value Range Interpretation Code Description Data Arabella rce(s) Supporting Document(s) Care Plan [facility] QGFSYe2bYsLQHjVa80/XHIwbAHQdz0AtLAekCDr2NWbjTAAfB1PkOIC5vM3xDCP8DQiBAhHlXhAuCGZ8 lbm [file] 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/VbYra/37PrWE2wtqj5pjPFGaXTD8EWtPow1j6iYoykz/BvRC0+a5xe18li9rVa7mt8oH/DPMscSF [file] XSANCj4+LIeqeMCziXbfROYJSuFdVZP1OYehCGICQn9Z ID Date Data Source [id number] 03/25/2021 07:12:23 PM EDT [facility] Name Value Range Interpretation Code Description Data Arabella rce(s) Supporting Document(s) Nursing Note [facility] YQUPRv0eFgRJBzVp94/PISdkPVEvc2IpZXusYJr4VGgyRLYhU4HiYHC1kE1uPZD7IKaFSvXtVaZuEVY6 lbm SsIexWSkVqUVIsKpiWWpUbMHfkJuugbHYqAJ6LoGZ5SPImZ08xULOkJHTrD1RfHNDaSaE+Br4OHEOqiW JcAB1BFbvM1JgidhT8MS7G6f/IS8ihcoq5cR+EkLiUSkgUSqPzcjgPKdmGQG+kCQV+/dmNvUm+wZo27R ZB+1BU3IoNf/vGuyEKf1+x3rdgKDU/y6+uNPTxlB4+ sXN8hBq0jv7xMuOdtWivLVNdT/2rQq/QjWsGv2OT8de11SfbQAkVpC1qLyaAOB01qp6i51m2Ma6E0SmK hy8qgyEIn+L8Bxr0ly65kKf4jyeiT/iXwqZTzT9EhtbqNiXnxzijxH4K5TFaes2FmILglZCNSUELSgPd BuePw9aJ6xqbTGyGuv5K67gOPZew+iyZN8CR+jZEGO rOMRNngVj7KnPOg7Svb+5kDOwqMBZJCLpDk7QDu5h3JvD27nQGWTyJyFuhvPAIKBcqNKrV7qBoY0tgiE AC9I6Bg2vTpDbWrNbhz16XnxmcXfOB85Lrreq5O4hL7ZOGEkx62dnPqFHjCtgOWa62Wx/5L7SzeSUe4x R5c9Uu2TTgGdZef8x3x9+/vuXW+aP6QCcJuvYEBhYn oCR2khMjx1rWqDpEHqn5f/ARaPgooY3dofBeF2KJeSQ/aPD6/mWqhrl1Luop32LbwbGLZRcMkK25PNlE PvYrv4gZ1E6d/kKcfM2FKozRn8YhBS4q34l01rLKjURVs6d1p37Q59nui+gvkd+AlX8HmTguo8MzLLmi f2G/VW8x21H896SoMWgmp7z6Pf3dXjsLZ1ocSw/Clau [file] foMNCNDa8E ID Date Data Source [id number] 03/25/2021 05:38:02 PM EDT [facility] Name Value Range Interpretation Code Description Data Arabella rce(s) Supporting Document(s) Progress Notes [facility] CAWCIg5uTrRHYwHb48/KDByzIAByi7HkNAhcJJi0GFhhLSMfU3AjGGG5lB9cIJM4KFkYTrFvAsJiWZJ7 lbm [file] HPNrWeJK4APYn= ID Date Data Source [id number] 03/25/2021 03:02:31 PM EDT [facility] Name Value Range Interpretation Code Description Data Arabella rce(s) Supporting Document(s) Anesthesia Postprocedure Evaluation [facility] EFUAQh9lViAFUkPs23/WNSooWJCik7JhLDocQEg5DZrsJJRqC0QpXOY0vI8rKNT9ABgNScWiYdQvNYQ3 lbm [file] MDAyMzQxMCAwMDAwMCBuDQowMDAwMDIzNTgxIDAwMD HzXI5IIvGyVDkaWKYZPto9XJyuR4f8QAJiQS9LU2Nie4JiVsazBLZHEDzzFE2wjqTbSPIkZe5SF7iEPv ouE3OkAHY0KKnnKXO9MBIpVCLjPUX3KoH4SoSrLpIxJw3mTMHmG5S6YGz7LXA1Bvv9IbXuAvIlHUQvZW l9EdMxP0PwFrRaCJ8KAa7QMqP3OOL0jBJgPo0FRaB9ErBPHqIhWF9TFQk= ID Date Data Source [id number] 03/25/2021 10:57:36 AM EDT [facility] Name Value Range Interpretation Code Description Data Arabella rce(s) Supporting Document(s) [facility] AOHMQq1hQiHSTxEz97/EAZshNDXfa2XtQOmjSFs3IDhxMXNhC9QlXFB3bA2qUPS0QQlQXtSxJmUgCVP8 lbm [file] ICAgICAgICAgICAgICAgICAgICAgICAgICAgICAgIC AgICAgICAgICAgICAgICAgICAgICAgICAgICAgICAgICAgICAgICANCiAgICAgICAgICAgICAgICAgIC AgICAgICAgICAgICAgICAgICAgICAgICAgICAgICAgICAgICAgICAgICAgICAgICAgICAgICAgICAgIC AgICAgICAgICAgICAgICAgICAgICANCiAgICAgICAg ICAgICAgICAgICAgICAgICAgICAgICAgICAgICAgICAgICAgICAgICAgICAgICAgICAgICAgICAgICAg ICAgICAgICAgICAgICAgICAgICAgICAgICAgICAgICANCiAgICAgICAgICAgICAgICAgICAgICAgICAg ICAgICAgICAgICAgICAgICAgICAgICAgICAgICAgIC AgICAgICAgICAgICAgICAgICAgICAgICAgICAgICAgICAgICAgICAgICANCiAgICAgICAgICAgICAgIC AgICAgICAgICAgICAgICAgICAgICAgICAgICAgICAgICAgICAgICAgICAgICAgICAgICAgICAgICAgIC AgICAgICAgICAgICAgICAgICAgICAgICANCiAgICAg ICAgICAgICAgICAgICAgICAgICAgICAgICAgICAgICAgICAgICAgICAgICAgICAgICAgICAgICAgICAg ICAgICAgICAgICAgICAgICAgICAgICAgICAgICAgICAgICANCiAgICAgICAgICAgICAgICAgICAgICAg ICAgICAgICAgICAgICAgICAgICAgICAgICAgICAgIC AgICAgICAgICAgICAgICAgICAgICAgICAgICAgICAgICAgICAgICAgICAgICANCiAgICAgICAgICAgIC AgICAgICAgICAgICAgICAgICAgICAgICAgICAgICAgICAgICAgICAgICAgICAgICAgICAgICAgICAgIC AgICAgICAgICAgICAgICAgICAgICAgICAgICANCiAg ICAgICAgICAgICAgICAgICAgICAgICAgICAgICAgICAgICAgICAgICAgICAgICAgICAgICAgICAgICAg ICAgICAgICAgICAgICAgICAgICAgICAgICAgICAgICAgICAgICANCiAgICAgICAgICAgICAgICAgICAg ICAgICAgICAgICAgICAgICAgICAgICAgICAgICAgIC AgICAgICAgICAgICAgICAgICAgICAgICAgICAgICAgICAgICAgICAgICAgICAgICANCjw/iJMmM0eusT LfddX4U3pkUf9MQh9QKC9ah2VbTXAsYMnildTeBydZNnXhAOHmOwjEAre7TRbnFK7FtTYgU7VdE0JyQM ppDP3DFYUeCRCmgFCxWCUdNRIxFwL2HBHhMBneJV9Z fKOzTPloZKQkQCWyOT6ODMMvV220uqLiWB1TWz4BOzWzML7ksi0VZgDkNJMdInjCIvw7EFolNU5ZrTAt fMJmDdOwXFYSLmEnD7ygn7EzYiZfNVDLHFneQL1Qm2BvhGNbSCi+Rq8OCS4sm4WoFDgcTdLfVH7pia5V FAsHRkSgO5XsmOrlQW34wmBfnpzpUe97HRJavFKCrK LfuBRgfNMcFMg1u68kFRMZCCJ0OChkRXvnCgPtUBZxNUt0RCOXQXnGCaDoP8Dgu6QyCtM7NVIyUzIqCU evYTYzVgP1UR82cVbcCL3CNTOqWIVpHV54PKQxPEUqUh2AGh3HJyItEO2ksp6CXiUtPCVxYafFHcg8ZP irWE2OmXZbO4XtiCImd5yJVnTvF7IROHUqSGJtZb3O WQTyGuGpKQMvZNdyZU9lIQNpMYCAuMoyxlJ1TL0ZUZ0tkkUeWP5CEjPpHf5vHq7XDeXlZ1JsP7QrLIVg XPNPWFtjDD1TCWnhYP2jXX4Py5OTvRCcxJ1qgl4LIZNnCQRdDexwgm5SRraqL9E7sQwpUMPgYmMgFYUZ YGrvDS1YDGRvYGS2EOWgBNTvVZOFAvTaY45qQD5CZ1 Slk30xZfG0BQHiLtSlKEhjQV42vVdfdmDodISzyLpfRJ2QPl7+DQplbmRvYmoNCnhyZWYNCjAgMjUNCj LpENLxAYIhPSDaCnX9YmAwXr8IAFWhNNRhGCNgJlVdIOSjMDSbBXkmEFVuCJN8FTD9SOQlEIViFI7RUm LiVAHsPcIoFZAkLXNcCWAnrp0BLSRwIBUtHWF0GiBr OHZoEXRiRNzlWLYoMCAfTEWxULIhXQTzYL0VXwQpCEWxVHCmWEBrVJVnREDpzf5ZNCHySQZoYiGvCtCz ZZUgSRCpTGmqMOOkXLCmXROzMXUdTJBiHG8IMqTsMZMxWEA7ZIypIYYkUYDvna0KAKHgHSNoCrU4ZsCo WPMzHEJlXMpnZDUeACHdChX5CCWpLEQvSV5PAmNpWB GzWKX5EqNbDAWmLGJzfr4UMOOaLLEbKlY0XJMsZBPdAGNfHQtqTLIyYQX0IOftLDGiDZOdGW0DLsIyHG TgTCR9XPFtFINpSDEljr9NMXZtKOAhJlD7MLSyPGHfOAEgZYszCLNhMZU8GLe5NVYsJTQuRK5DDaGtEK RpLBibRpfpNNTfYPUcco7AFRYgSZWiXEKqEcQuCFZf YUJwTNajJIDaDQJ5MRt0ZLFdSWYzYE3JMhKzTLWfNWn9WGHwQEUoYFQdnn4PUXPmEBUmNJP2OGYnCSEm XQKgBVfcSMDqNEVcSMIfRJNoZYAdAN6ZKvBsZYXhGqY0OOvkWKQkFGRayq8XyFQmrFxrcu5ILVjXFc8K oAaaPZH7PXndXs6juWMhSWRgJUBWRk9BgrUqRWEuIO SLQFgiTIDkQSXfVPCgGACqIMWmYVXpNPVfT2O5NxccOSSmVYpkVbLwWzS0QuC4DUS2HCN3NCZ1SPDpWN XsRaufDYQyTwIfANM1VJU+YP4qFKv+Ov1Zg7SnbfN9gwIzDRupSFtrZj6NYRNVL8CUEn== ID Date Data Source [id number] 03/25/2021 10:48:41 AM EDT [facility] Name Value Range Interpretation Code Description Data Arabella rce(s) Supporting Document(s) Nursing Note [facility] GPVJUe4bRhLCCdVo48/HBCxyNLNvi5AkUQsqQYg9JQyuLRXnF4WkDCA3eV3mKBO7ZCcSIgSfQhQiHOF5 lbm [file] 6ZHwW5YCO4sBBsGj9OTjL3ORWXEiZaNI6ETHb= ID Date Data Source [id number] 03/25/2021 10:42:08 AM EDT [facility] Name Value Range Interpretation Code Description Data Arabella rce(s) Supporting Document(s) Procedures [facility] XPFNRf4qNhVCAfUg80/DRYfgAQYcn9VeAKnmLHq4SGcxXQIvX1UuEVL9dP9kTZM0CVhNQeYiSvQuTWR6 lbm [file] RfItA8Q3LgLKJxHsPoCZ6UQe3LTkW5VUN2sUCvOk8CHyT9NvUZMeUtSH2NMNe= ID Date Data Source [id number] 03/25/2021 10:11:38 AM EDT [facility] Name Value Range Interpretation Code Description Data Arabella rce(s) Supporting Document(s) Anesthesia Preprocedure Evaluation [facility] FCDJPq3uFgMQChGe01/SYCfgDYHjb3AvVZdiGPk0RHygAAZaU1LqKMK0wW6rWIQ2UJqJXbLvYhCdZRJ7 lbm [file] XcmZklyMil2xoVOfXgewpb+S829loZ/c+yI0+onB80aEyFvSVnuG1Siv19o4WuyOEvWSoArl1bjg/Rocío Koyn7hJ/22UmENN3z/GErTuBQ2VC9w8pE0/qPg+f5H 7rPOEoT1ciUnHceVGqZH4vZ8OMiM+jGJOIzTGpTzzyfbUX1N+felSP763EFgiABnUfSTPeiqk5rZkTZf hbW/rogelio+C61/W3uatTmcpB8INtCpTiDBpmdYpB1cxRTfRuJYRcSJiGeecnOE2lt5TVbXvgy1jBNeQ6yz [file] NnRN9TIk7IKjV0PEW0vPGkAc1TMoZqRwbPNjSwFO0UZHg= ID Date Data Source [id number] 03/25/2021 09:23:31 AM EDT [facility] Name Value Range Interpretation Code Description Data Arabella rce(s) Supporting Document(s) Perioperative Nursing Note [facility] WFCFVs5rSmSMTdSg91/MXOeqCJObi6ObBPeeRQe5JIuiWJMtJ0ZwRVO8mG0eKXR9UAgRFnNyUrFzCER2 lbm ZcUbbIWjJjXEVeLcoADhAwHFdwMgxpfNGvIP8NzEN7DCByA63eJBJvVLScF9MqNSeaWF6+HEuzCGS2qj UlhM2PAVLFBKqm72HToVpqE+nQQf2zm0n8QaZuEyBEiOtvG9yNKbnsrPjD3wHu58W4ntxgUCncamAdS0 s0s+xZdpp9MgR/S7wZBUxwUy5Wu7fVrstNxjzTdANb int0PtykUOFIqZ9Pxor94SEoAxcEAS/4qNKNjPxZRcyMYWMBexPN5HpA+fKOIUV8EsQXII1jHwyzeiDL 9DEnE5N5uy74AQ+flIf12OBL2v/NdzCUliCVkumutH2FEmssZymTjGSiQZQKggcvkkMBtNlXUcqqmz4h 3eRV9T3wXtumpJNI2ONBXzJeCy3tbBeucjVNlXu8b2 TRXbua16L4a4MdL2urzWgh9uXwENtLdK6VMqkE5ybgEPwj/dFUo+kAlByVymcrUMlQdLTcVyiUDJruQS zCy+Ag4hmYCX65BsR7VkYKScJFq94Bc10Ft2xiWWcFjUapLqDIzgCpe4CY3ai4+J8XeJMaTYalik+t6H CcrLZpNHzauEKpdcN7/jcxc81DmdUNe6r8aKoQhQFD wBaosGX1lCW2vuoNBd5a+rkngPsg5wHOa7+GZ19pLOcA2xE74sjesPKssbVUOusTQL6wFN5W34O2RF4i UBg3Ec6Yk373XuLeqveFsafBUB8t0kPL+f0Mmj84o6Q+0S8LVPJ92z/dHIrlEOS2V5vzPT/Jpfpd/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 [file] 9GDQo= ID Date Data Source [id number] 03/25/2021 07:03:25 AM EDT [facility] Name Value Range Interpretation Code Description Data Arabella rce(s) Supporting Document(s) Nursing Note [facility] GCXCIw6vDlCVJgJm11/RYTrhXKMrh6OdDPikOLq9HYqkOHPgI1MhBEP7dB4rUJA6XDiPPdZpDgXlMEW7 lbm [file] 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 Baseline values before medication adminstration are recommended. Patients undergoing treatment with phenindione will have falselydepressed results. Patients on phenindione therapy should be tested with an alternativeCREA method.Toxic levels of acetaminophen may lead to falsely depressed results forpatient samples. Glomerular Filtration Rate >90.00 mL/min/1.73m2 [facility] GFR Reference Ranges:Normal Function or [...] of Health and the National KidneyFoundation. The Elsie method used in calculating this result is traceable to IDMS standards. Glucose 92 mg/dl 70-110 Normal (applies to non-numeric resul ts) [facility] Sulfasalazine has the potential to false ly depress Glucose results. Sulfapyridine has the potential to falsely elevate Glucose results. Baseline values before medication administration are recommended. Calcium 7.8 mg/dl 8.5-10.1 Below low normal [facility] Sodium 140 mEq/L 136-145 Normal (applies to non-numeric resul ts) [facility] Potassium 3.4 mEq/L 3.5-5.1 Below low normal [facility] Chloride 110.0 mEq/L 98.0-107.0 Above high normal [facility] Anion Gap 8.7 [facility] Carbon Dioxide 24.7 mMol/L 21.0-32.0 Normal (applies to non-numeric results) [facility] The above 10 analytes were performed by [facility] [id number], ,[place] [address] ID Date Data Source [id number] 03/25/2021 04:56:00 AM EDT [facility] Name Value Range Interpretation Code Description Data Arabella rce(s) Supporting Document(s) WBC 4.87 x1000/ul 4.80-10.00 Normal (applies to non-numeric re sults) [facility] RBC 3.54 x1Mil/ul 4.20-5.40 Below low normal [facility] Hemoglobin 9.0 g/dl 12.0-16.0 Below low normal [facility] Hematocrit 30.0 % 37.0-47.0 Below low normal [facility] MCV 84.7 fL 81.0-99.0 Normal (applies to non-numeric resul ts) [facility] MCH 25.4 pg 27.0-31.0 Below low normal [facility] MCHC 30.0 g/dl 32.2-37.0 Below low normal [facility] RDW 15.9 % 11.5-14.5 Above high normal [facility] Platelet Count 201 x1000/ul 130-400 Normal (applies to non-numeric results) [facility] MPV 11.1 fL 9.4-12.4 Normal (applies to non-numeric resul ts) [facility] Neutrophils 50.5 % 40.0-74.0 Normal (applies to non-numeric resu lts) [facility] Lymphocytes 35.7 % 19.0-48.0 Normal (applies to non-numeric resu lts) [facility] Monocytes 10.7 % 3.4-9.0 Above high normal [facility] Eosinophils 2.1 % 0.0-7.0 Normal (applies to non-numeric resu lts) [facility] Basophils 0.8 % 0.0-2.0 Normal (applies to non-numeric resul ts) [facility] Immature Granulocytes 0.2 % 0.0-0.5 Normal (applies to non-nu meric results) [facility] Nucleated RBCs 0.00 % 0.00-0.20 Normal (applies to non-numeric r esults) [facility] Abs. Neutrophils 2.46 x1000/ul 1.92-8.31 Normal (applies to non-numeric results) [facility] Abs. Lymphocyte 1.74 x1000/ul 1.20-3.70 Normal (applies to non-n umeric results) [facility] Abs. Monocytes 0.52 x1000/ul 0.14-0.97 Normal (applies to non-nu meric results) [facility] Abs. Eosinophils 0.10 x1000/ul 0.00-0.76 Normal (applie s to non-numeric results) [facility] Abs. Basophils 0.04 x1000/ul 0.00-0.22 Normal (applies to non-n umeric results) [facility] Abs. Immature Gran. 0.01 x1000/ul 0.00-0.02 Normal (appl ies to non-numeric results) [facility] Abs. Nucleated RBCs 0.00 x1000/ul 0.00-0.02 Normal (appl ies to non-numeric results) [facility] The above 24 analytes were performed by [facility] [id number], ,[place] [address] ID Date Data Source [id number] 03/25/2021 03:48:12 AM EDT [facility] Name Value Range Interpretation Code Description Data Arabella rce(s) Supporting Document(s) Care Plan [facility] PCGGWz1kQrIVIgZn98/AALkwFYTzv5RwOAggIBs8IEfmHLMqH7ZkVVD9rW7hKSC9KWqCPqBxYlUlXBP6 lbm [file] LgPSNwYTH5ZBYxYTR7IcTwRgJbVOTvVxK9Hf1iIQ ANCj4+ISkevWYfoTkzDMRPYaY7JkJwGXhzRSPDBz4G ID Date Data Source [id number] 03/24/2021 06:47:36 PM EDT [facility] Name Value Range Interpretation Code Description Data Arabella rce(s) Supporting Document(s) Progress Notes [facility] ZABDRj9iReRCDhCz75/LPDfvJSJbw5KkZWppSAo7ERifQSQbF3MrQHL0gF6tFPA4WKoJSqHtVjSsRNM3 lbm [file] hW5YgxXdKIVGw4fbb+IOxXfu/MyuHG0iv76q/O [file] AgICAgICAgICAgICAgICAgICAgICAgICAgICAgICAgICAgICAgICAgICAgICAgICAgICAgICAgICAgIC AgICAgICAgDQogICAgICAgICAgICAgICAgICAgICAg ICAgICAgICAgICAgICAgICAgICAgICAgICAgICAgICAgICAgICAgICAgICAgICAgICAgICAgICAgICAg ICAgICAgICAgICAgICAgICAgDQogICAgICAgICAgICAgICAgICAgICAgICAgICAgICAgICAgICAgICAg ICAgICAgICAgICAgICAgICAgICAgICAgICAgICAgIC AgICAgICAgICAgICAgICAgICAgICAgICAgICAgDQogICAgICAgICAgICAgICAgICAgICAgICAgICAgIC AgICAgICAgICAgICAgICAgICAgICAgICAgICAgICAgICAgICAgICAgICAgICAgICAgICAgICAgICAgIC AgICAgICAgICAgDQogICAgICAgICAgICAgICAgICAg ICAgICAgICAgICAgICAgICAgICAgICAgICAgICAgICAgICAgICAgICAgICAgICAgICAgICAgICAgICAg ICAgICAgICAgICAgICAgICAgICAgDQogICAgICAgICAgICAgICAgICAgICAgICAgICAgICAgICAgICAg ICAgICAgICAgICAgICAgICAgICAgICAgICAgICAgIC AgICAgICAgICAgICAgICAgICAgICAgICAgICAgICAgDQogICAgICAgICAgICAgICAgICAgICAgICAgIC AgICAgICAgICAgICAgICAgICAgICAgICAgICAgICAgICAgICAgICAgICAgICAgICAgICAgICAgICAgIC AgICAgICAgICAgICAgDQogICAgICAgICAgICAgICAg ICAgICAgICAgICAgICAgICAgICAgICAgICAgICAgICAgICAgICAgICAgICAgICAgICAgICAgICAgICAg ICAgICAgICAgICAgICAgICAgICAgICAgDQogICAgICAgICAgICAgICAgICAgICAgICAgICAgICAgICAg ICAgICAgICAgICAgICAgICAgICAgICAgICAgICAgIC AgICAgICAgICAgICAgICAgICAgICAgICAgICAgICAgICAgDQogICAgICAgICAgICAgICAgICAgICAgIC AgICAgICAgICAgICAgICAgICAgICAgICAgICAgICAgICAgICAgICAgICAgICAgICAgICAgICAgICAgIC YuCZWxMWPgJTJgVHJlBGNwTCr5Y7kcXGCwXRInOP9s YRs7Rj9+YLoFZsXgEKM3tnJutW3CMX6lu5JcSOtcBTOap8VzAQr7LE3LHPPeQQdzVW5WAYvgzm4EYRUd LYIxlMBTh9cuOxKmMVK5YLXkQfbmJE2QYXNoE1hasiTwSUPqTRQPIZotMEWUYBxkTOOFZSPmNGRiKtPk ItZoDESlORLyACKXNAZ4MOJbWsWrMRtuMR7Jj2OpfR A3DQo+Zz4NPF4wc0EoNHu9DjVdWF8ebp4YOHeFTmMeO8WqjhT5ZYB8IGCzPb2SKLOxNUSnoEL9JVSaRL HOIoEtX9BawT41MFBKAg8+BNivqfOhSyeVRgH1ONSqg4CaZHw2FH7EKQJrLIe3eBEfNTHlT5Pgr6PdXp 96ENJdEsazI7ZfNE13wYAeDPRjprAlutbvg1RkQW4D TKK1ZYayYSImPwZkPWBfXAbrTMFXEFgDSqCkP0Eyy0LfIcQ5ZEZjZvCdCTnzSXKoSfH8MG15hMrwGI8C XLBlYQPrHE34IYQwLWFqVo0KMm0QPyYmDU9yvj5CKMAaQJIhMguTAms9SAbvKW3YiZOyZ4OfrTAkv4kY OpMaN7GPURIwOZXxCi4PPJEiQpNoRBKtRPtmSU4wBE PsZJXElQbqjvC8WY1GSO1tcwPlVS3UHnFsQt3sYq1AKdOrG5DyV6CfFCXeGSUAIQgnHK7IVUprFZ2oSA 9Rp0QZdEAyvM8wpd1QMVLbBXXzCmqhod1TCrweG8X8eOawMJPiKLBrGEZLLCcdLM0MOWNgQZF4TPY5Jn CvOBIIRiEvV58jQQ2QB6Tso64eVqF4TZKpOtLoKPpx GH82bJbhirYefKEtxYocCP6JRx6+OHevoxLdTwrUJeawCVAEHoFbEVFCGcAcDCInBVJjBGPzOaU4OhXl Lv2MWKHfAMNbXLQjMyKbGMPuKXVoWAsmYBOhRPU0EAQ3DGYkCBWfZV9LUoWsJGQoPmc4AyDwZCEoBEZs gz0ZHNInCDNeEVD8UaSsJUJdYYTpTDwsDHSyYPOsUV XpRLNeNMLrVM1EEiTwXOCiOOL7ZoWtSAHxHSRpna1OGUFkMVWxHTjfXVCrPCCqATRgDHpzHMEbJEI5RK FjFGCsVLKgDW7PUyIwRTWbYAb7TXgnKWYsMSRyrg4VEBUzXEAiIQDzHPQtVWBwVYUxLJjiLVHpUPZ2NT V7IBTlZUXrIM9VMtYwBYZvGBHiCsWfJVFfWYXvkw0X XZMhUUOsDPeuVTSdTXLkCPVvLBpsZZWaEYUnMHMvWESpVIOqKY3LOhPvYTLvDBT7HOReALOqEXCfyh1I PUSjTERfLNY1DIBiKZGzMMMwGQpkDOCkQKM8QRN0VPXfWLUgOH3BVrIzEYRqSXT0DIMwJSEwAGJorq6M LNJdOEKnKbW5UHQzBHVdYHHvCQvcXHLzHVD9Qdu3VY DtWULtIF0DUiQhUCKpTKI2VpRqGKIvNABrxv2LOWXtKLYhYdpsLYFuFYRfGQBhTBmwZWWrCJA5TAQoJL RgBABhRO3XFnTtVGLrLIpgGLXfMWVtSOHlsn2DLJMxZGAdIPT3ScKbAOLuZUYwLAqlNONxSNK6IYXwMD XgSMJfSS8IXeApDFDgTFp2AKdyLOIsUSBfzo0DRDNx JBEiSPUdIhCnAHGgHARvAMqlZDRrTXIzHBZ7NRVmHAVxUD7AVbElJXJrVxLwZFJjMCMoIJNwph0NCUMq PXWmJRz5DrRfCEVaNVCwXEmfXBQuEWDpDHPnMSHuOBEgIN6MTpWyPFAsSsEvFWhgFHLfTMEzay1KTXQg SJOeFDN0ADHfSEAsLVRkSZtiMQXnGES3EDf3TORsNF NiEA3SHfCvMLHcVjGnLCLaXUKaTZDeap9EYUPmGAJsMmB6ZqMyXGEzEIYjFVghPCMeVOH5YVuyIKEcEA OfQP4RUtJwNPDjWmu2AgKiOXLhPVXzoc8MSOYlJNDnAnaeSiCzWZTrLZCfXEveOOEgDAE7TPT9MXTxEV AdHW0ICxVdMPIzGjgxZJIwRIWeIHJhjo1IBAQvOAPv UDs4NAEtFQZbQKBrLRvjBZDpEJU5UERvYVUvZNUtVH6IOvZyKHSjJANiVIBxMJZmKGUosm9OwGVmuFam ck0RXUcMYq1JcEjlNFO4LWldOj4xlZO9MUQuRYORNw4RhxBcXOUpBYGJOCjtTPBcBRv0HDZeDmv5L0Zl YmTrKtS3VRHdFBSwDLHrQEM0GpKtLqT8VGJ7CQYgUG a1CxYfNKY4YYm1AOIhQWQ8Z3L4UolvJ6K+YD7yGMk+Rd3Fn1LlzoX7xzLrZUp8FUQwGL2TJNIZD9NVTp == ID Date Data Source [id number] 03/24/2021 06:29:29 PM EDT [facility] Name Value Range Interpretation Code Description Data Arabella rce(s) Supporting Document(s) Nursing Note [facility] TGIAAv0aYyFNXvTd18/MCUxkKNYog2CeMIuvYJc2LZiuUFXcJ5DsKJK3aR3hMMB9WJjQAaWfHzHzOAZ5 lbm [file] W5LYR7LHYgDQBnUkVmVQ0AMm6GUpD4JOO4wEUsUh3LVaCkLPFFVmOwXP5XJXi= ID Date Data Source [id number] 03/24/2021 04:19:00 PM EDT [facility] Patient: SIENNA FOSTER Observation [facility].VisitID: [id number] [place] [address] [phone], FRegistration Date/Time: 03/22/2021 13:25 Weight:72.1 kg (S). [...] rce(s) Supporting Document(s) ID Date Data Source [id number] 03/24/2021 04:11:33 PM EDT [facility] Name Value Range Interpretation Code Description Data Arabella rce(s) Supporting Document(s) Progress Notes [facility] FQQTAu3uOtQVVnVw66/QTWssFXDkl6QfPXwzIYy3NQnfVRPwH8WoPBO7sE7xJOP4ACoMIlCuVyXnPDP0 lbm [file] StHuOO1NFDx= ID Date Data Source [id number] 03/24/2021 02:38:34 PM EDT [facility] Name Value Range Interpretation Code Description Data Arabella rce(s) Supporting Document(s) Progress Notes [facility] BIHENr8zXeRGIeZz43/CITmtFUMpf0AhZThvDXk0AEszVUWuA5MxMGR9cP5sACA0NNsTByRsPbQcEBR6 lbm [file] CcwK2CG7PXBFxQKAAGAb0FIELeH50TBNRN+1SsZB60 NHJ5CY5Q+yPjiAaLIlReDMtbEPY1aU+6aF5YqpXAaIwFNohopPljQ+yHWwJFHbRSV+UqW+aeBT4A/oP6 fzKVU56PetQ2/o/mVT9UPLB5b3e/wNQ1WVatUOhV4KszO5k/KS8yvEx45iYfPcjMtEHR5nB23jF1CApQ zkCMH3Kp8mIWZLdvS/uceBrtOgT/s7C1AI49FPIj2z pWwzawv+sI+W7b8o+OPe3pjj+ZpzzKsC3n65xHZ6L00Qw+tWpqg38F51czoX3U9QLHDnMfozoV/xLUec /4Iz0Ni9PsXDLmQzYf6eJQgxED4n2spNu4UowRzOG9E7/Tex4rMi42X8g+gtX5dR5VAVmqdFc1SUiDqR AP9wFpraUM6aRsmPxJ0rRQg69Gd92vzt+kPgUcwXpp yAcJC4zpEeAxt102ye9fCIS1Xd9XPPNlJfQP87IC1f12hq+h+0Nl26NkDa0p6uixvuJkW4KeWEF8azP5 j+z+6qidAr/W1Mn6UTIkv8Ne8NbflA6F5wBxpQM+SNbS9Pk+M+HeNpnF1oQwltfiyGH3pH5FnfkBW0qF qxncw+keYKHLRSmuluJvqMxVkyhfnDHafxtLnDuuQ9 2xmo56V1/Ph+/eGgPgjEo8s9U4qUObvVCwMFh3VVljBQ7cG/99kIZnZ+K0VyJGIUWCV72s20ZMAgV3CQ blImjhQlwYw0VweXsrCwLJMuJaJHDb3UT4xYn2l+j5Qo0tilO8Xs4bXqOy5PXLnslSjJyx8Oa08jrOXF zgUjy67BPDZH5p9WmxY3bts/l7hUzwGN059WVDSB22 NfNLsMgDu7vTuqqeSIE1xAefE+t5A9WG2lzF+tXlOKqv2bz6bIZD7JEDH/C9/hIaLFWSLv+w5oxh3GOK hh5U184g0jajCqul+RjuWWALUCb0i2J2al3gnp+lDrD/xkjNzI/2P3XLKrAvjeyYJ7h85aiLjAcDyJgS kaIzQcp8AsJ69Avb3VnQZ06ydaRtv5n17+JdnrYH+7 hLDO5lYkgCae9yQUKFCnn3E0z5xL/4ByAt/y2bH+FzGO51bP218lJ16BSTeU/yH68HgcOafjhQ39zR80 0WBlRct2ZflBfZa41Cg4k+D5azafmpykw7fP2ozSP0iRdJaSxiMfyqIjHEjYMp8u//vejEE4Ae08Xcd/ +mc46Gyec2JCIva+2wokTFfoD5YZNtfDqCWpcyd8/v BIm//6JBOLp6JyNr5MSA3X9qS27SKeS0huU7ZF6CBrgUDjVmCp2Tq7mVYr2fbWjoIP0SGnPl8dR/A/vp platforms Ncho58K/MO06uUzNaZrlmQpFDqr2tSTENoF5L79/KJcweA9VikXVBK8LX1ydL2LspAR3r987b9hGy7bH XxnWuhx+u6B5duhUpnGzn038b2VYT1bPoK1Ai6FUW8 spUmHDFKZrMW56uPMF3ecfoD0hYumBcguA33xbJeSnzULJR6O/uy0K+3hDHFsxxW65SiC/LXzBRnt9Jn ZmDbYkj67pq6y46Wl3lm7IS9kzDJVSbu4xlHjilr64S2juKl/vU3xbT0tAlwZqeOiyQEN8nOULpSxOTJ 7tGwnLhvPFdLtz98/zRBkB2k1Va6IQ28fXxhL1BQeY mSo3k2hSwIs9xO/nXsoJMkPyXd8TwIBnghiDpb8kSHYsm2eFdgFfE3h8mtK0RUcgoLwFZVhzuOi5sH3H Y5xvb6iM2Tfm60PQHPmRRt6dUIit7l2pHuOhTh6vaod5anzxfAuHaur5AQ9ufUd0vRTV66q4IOrqEf3f PiraRNaODISdm5rzBlAYRP/GdeHnHqHnhGuob7HRmt 9DxnsCRkw+wpPcVshgg/ILGTXmF+bFyWGqAwhXSn6Jd0oDfM3mb2M25mTvbYsWwlCSqbzCqJAnPTR/YV DNMeJ2tJjUBQv6yXlASQG7UoPegQPH9HpAUwuYhv+qvlM5uc5FNrlWZDjVDFiRjmg1H/e5wJZhIU9QX0 nFOmP9NVGHavb+YYVVjaIGJA+ECUADRtSBIrHIJE81 [file] ICAgICAgICAgICAgICAgICAgICAgICAgICAgICAgICAgICAgICAgICAgICAgICAgICAgICAgICAgICAg ICAgICAgICAgICAgICAgICANCiAgICAgICAgICAgICAgICAgICAgICAgICAgICAgICAgICAgICAgICAg ICAgICAgICAgICAgICAgICAgICAgICAgICAgICAgIC AgICAgICAgICAgICAgICAgICAgICAgICAgICANCiAgICAgICAgICAgICAgICAgICAgICAgICAgICAgIC AgICAgICAgICAgICAgICAgICAgICAgICAgICAgICAgICAgICAgICAgICAgICAgICAgICAgICAgICAgIC AgICAgICAgICANCiAgICAgICAgICAgICAgICAgICAg ICAgICAgICAgICAgICAgICAgICAgICAgICAgICAgICAgICAgICAgICAgICAgICAgICAgICAgICAgICAg ICAgICAgICAgICAgICAgICAgICANCiAgICAgICAgICAgICAgICAgICAgICAgICAgICAgICAgICAgICAg ICAgICAgICAgICAgICAgICAgICAgICAgICAgICAgIC AgICAgICAgICAgICAgICAgICAgICAgICAgICAgICANCiAgICAgICAgICAgICAgICAgICAgICAgICAgIC AgICAgICAgICAgICAgICAgICAgICAgICAgICAgICAgICAgICAgICAgICAgICAgICAgICAgICAgICAgIC AgICAgICAgICAgICANCiAgICAgICAgICAgICAgICAg ICAgICAgICAgICAgICAgICAgICAgICAgICAgICAgICAgICAgICAgICAgICAgICAgICAgICAgICAgICAg ICAgICAgICAgICAgICAgICAgICAgICANCiAgICAgICAgICAgICAgICAgICAgICAgICAgICAgICAgICAg ICAgICAgICAgICAgICAgICAgICAgICAgICAgICAgIC AgICAgICAgICAgICAgICAgICAgICAgICAgICAgICAgICANCiAgICAgICAgICAgICAgICAgICAgICAgIC AgICAgICAgICAgICAgICAgICAgICAgICAgICAgICAgICAgICAgICAgICAgICAgICAgICAgICAgICAgIC AgICAgICAgICAgICAgICANCiAgICAgICAgICAgICAg ICAgICAgICAgICAgICAgICAgICAgICAgICAgICAgICAgICAgICAgICAgICAgICAgICAgICAgICAgICAg ICAgICAgICAgICAgICAgICAgICAgICAgICANCjw/pAIqG6zydITgcxB7P2ajAf9WVf2HCY9yi2NmJLEr SFwccoReElbBXmSvXFIzLssNVfm8TWqkRS4HhEPgQ8 RkS0PbNHceMH2PUJWzEIUciOKySOJfAPKfUiM0ZCCjPGnpBJ9VqNAkJEazCVHlENRuWvCbPLZsGPVfDD QdGPMiJEMHOG7KSuJnQ6XvxD01TUEMPt5+FJntoiCtQesHRtE3YMIvx3UqKGp6DK5RRTYtVyffp0OdLN EpOHGSIQguEL3RBVO6VDA8VWVlYo7VXKXvI629bjRp KC1XHv7AWeJrIO2hfs6APNDdREOeIslHLyv4NYweUD8IjICqGFnJor4kbiNksaTBb2VqkqDuzIYPledr AZ7mJ8PbyNc8DJHLJKCXJM9xHICpFD3wHr7qWCLeLTLuWzV1PJZXTC2STCFjNYXpvDPeKLLxOKRSMH8C MNnvPFE9DcrdoaLvvKXnYOpdOU7KMHOqfqXeYNYuNI BSDQo+Lz1VDZ0ei5LmCSp8IaTaSM6shl7VAKiUUuCyJ0N6iOFyO1X8RXkuCv6OTGPuRFRxOZBcCNHBTT jfWV6NJP0hhbX4AL3VzDIuSBLmPUZktKHaZFr0G16lkMUaYHzhOL9ZRJR+Mau+Lt1BBQGiUQFhTLVtYu QsQKAWEqYoO1JqF1KTj8VaJ7HwJF80pAefpbUmVZiy ZX9RIQ1eKDXoGUOCRA6SgFNybV1lucO8YJIjVTVFLjFoQ63ofFMtYGMvAAFdFJWtOr3TLJNrD5SihsQy sJsnzyVhYKDjBQJZLW0UNSdylpIhtXWbcZdoUO60xJfdYJ5KMu4JRgCrBA0xyd2ZaAYlZm6CPPA8Db1G VDKyOODtHIPuCAS7KAWwToJzKEjjFGZsFBMbNLB4PD XoNRTzMT4MDlJnGZDwIWc5HAQzMFBwLXVjsu9PXHUxZRS6PQH5UKFuUXFvXWHlUWlsULEaFVJsJRD5SI KuJSQpZH9GQoRgPZPlBKY7CZmpDZWmMVLsye4JUMHaOABgBdCpPnWtLECjSKRyJKqqRDQgUVE6XjA0MM GhGFItFC4CPqSxRLWzCOO3FmfoSQLvONMlqk9TKORs CFBcSWQvAVPhEQXeMQMcJUubAQExRQP7DpH2ZKAaDOEbIU6DEiKdYFOrYZu6XcRdFZKxFHXdqc1PXYEm GUMoRKxwPTDmIICtELExRJygYQZjKDGmJMu2EVVkGPJuVT7JDyVeWUMhHYMwBExqTDVqNDFunh5CGZDf BYBvPKQ9NeTiNPHzSHWfCJlaQTFuUXZbVzD4YXBxWE DqXM5BLpQnWORmPVC8MpFiXAKaZOAakj7XCZPuPKIqVpYsUrIrQCQhCXZrSFztJAWmASK4BMB5AHBwIE EuPJ2CUwWgBCYiGnGnBWBsKHHoDNWngz6NYZKeGJCtLMJ9TLWwJSAvXISePJliPVYyESE3MxQsQWCkPQ KaNY8GRfOeASAyNuN0BhvlPCYsAGVriw2PTFPeEDUm ZwmhMXHuDWQqALJlEHheCOUoYKF4ZCIsDHMxNDRbAJ5WSlXmTBHxWofsZTaoBAJvZAGaqg4WUFBuVIQo ZWJkGMObUBTwIRVmXBfyOJVpWFD4GgH6VXIsWEIiSL0VQdZwCSQnKnh7IDocESBzNHAdbj9ZXZZoUAG1 BXfaXFGuVYScIWBkCYcaNTZkAJKpVPQ8RJAaZOKaQO 7RCyLwEVWfVNGjUKVvCCInBTEvud3CTSYoYTS0OaD9KDOwATMiNRJjOLewVSWbBQOqHmMkELFdFJUeOG 4SVtFaAVYmODP9RmNlNPWhDZLgfm6KKCAwDQX6Hio8VkPtJXZoHIKiNGhrSPAxJVK1DHZ4YJAhAFOlTL 4BYdOnCQTdAOv3XPJoGYCnBLAaop5UVDEfCSU6IPHk JJWsWKTcPPSdHNkjNUIbYTU3CKLjRKRlDWCmWA5REqDyXOLwVYr2YnQmYPBqSEDibm9MUVWhOKY5TVqw ZWBcAPPfUCYwPAskNRJxYZKqNfAsXHXmPBOoWA8PCqIrTCSdIDD6PRiqYWXeWNLpfn0HDAHvFMQ1BHtg HOUvAPXsIUWfWQbvSALlPZNgNCghHDWhQSWzUP8SIi CaSJmqNIDNWrh9EGnvB0f8OCX6Az9FJ1Lin3EkNKJoHSFKVXyaVS6oekKmHBCyXe5JA0xUEvucKaPyGU E0UUMpFAE9HpQoXWX7EUH0K6OdYXHtVsN4Pj8kVPY1NnR2XtBeCQL8QgsjTPA0GUCwVydhGHC6YPAcPX XyYuKdVQ7DQq0WRaT6YHS5kPDtLi4ULUTqUaUWZlQeNM9WPLl= ID Date Data Source [id number] 03/24/2021 02:35:53 PM EDT [facility] Name Value Range Interpretation Code Description Data Arabella rce(s) Supporting Document(s) Consults [facility] WIHGYu3bExBKVbDg20/MTRxjDFAkh8EiNOqgXSb3PRjeNCSeB3CbGDR4dI5lLFS1YKvRRtQnCqIaCNL7 lbm [file] AgICAgICAgICAgICAgICAgICAgICAgICAgICAgICAg ICAgICAgICAgICAgICAgICAgICAgICAgICAgICAgICAgICAgICAgICAgICAgICAgICAgICAgICAgICAg ICAgICAgICANCiAgICAgICAgICAgICAgICAgICAgICAgICAgICAgICAgICAgICAgICAgICAgICAgICAg ICAgICAgICAgICAgICAgICAgICAgICAgICAgICAgIC AgICAgICAgICAgICAgICAgICANCiAgICAgICAgICAgICAgICAgICAgICAgICAgICAgICAgICAgICAgIC AgICAgICAgICAgICAgICAgICAgICAgICAgICAgICAgICAgICAgICAgICAgICAgICAgICAgICAgICAgIC ANCiAgICAgICAgICAgICAgICAgICAgICAgICAgICAg ICAgICAgICAgICAgICAgICAgICAgICAgICAgICAgICAgICAgICAgICAgICAgICAgICAgICAgICAgICAg ICAgICAgICAgICANCiAgICAgICAgICAgICAgICAgICAgICAgICAgICAgICAgICAgICAgICAgICAgICAg ICAgICAgICAgICAgICAgICAgICAgICAgICAgICAgIC AgICAgICAgICAgICAgICAgICAgICANCiAgICAgICAgICAgICAgICAgICAgICAgICAgICAgICAgICAgIC AgICAgICAgICAgICAgICAgICAgICAgICAgICAgICAgICAgICAgICAgICAgICAgICAgICAgICAgICAgIC AgICANCiAgICAgICAgICAgICAgICAgICAgICAgICAg ICAgICAgICAgICAgICAgICAgICAgICAgICAgICAgICAgICAgICAgICAgICAgICAgICAgICAgICAgICAg ICAgICAgICAgICAgICANCiAgICAgICAgICAgICAgICAgICAgICAgICAgICAgICAgICAgICAgICAgICAg ICAgICAgICAgICAgICAgICAgICAgICAgICAgICAgIC AgICAgICAgICAgICAgICAgICAgICAgICANCiAgICAgICAgICAgICAgICAgICAgICAgICAgICAgICAgIC AgICAgICAgICAgICAgICAgICAgICAgICAgICAgICAgICAgICAgICAgICAgICAgICAgICAgICAgICAgIC AgICAgICANCiAgICAgICAgICAgICAgICAgICAgICAg ICAgICAgICAgICAgICAgICAgICAgICAgICAgICAgICAgICAgICAgICAgICAgICAgICAgICAgICAgICAg ICAgICAgICAgICAgICAgICANCjw/gODhI1pqnRPvdsE1I6lqKb5ISq3XJA8vo9IqYCPpDYkkqlDgYiqL NeCiTTYeGtnPEfo1JTkxWS0PoHSqB7CbM2AnZApeDZ 9CVITkHUNhoGNwGLVsNKPrPgK2AAAcOOlwCL2ZgTQkUTqeMOHwAEWeOqRmSPNsCPMsHNXbECMgBGTSMB UgYNFzAcKeSOFvCTMuIHxxVQENRKW3FRXkCuToJHrzSE2Ev7VeoNA4MBk+Gl7GPS7cm8DbPWm3VsUiIP 9yvi6IKPbYHxIdH1PxlfX6KELwRJCdFq3OJUZcBKEx aOA9LzXoNRCKFyCoF0VnlZ45PPRFAc8+CAvenoQfJpwOBwFcTQXjj9XqNOx1BC8HVVVeJUd2hNYfO90k d7PgtRVqOcfqF7gfsSreqTMYOBepLSIhshdgYHCjAJBqVH8oRs7fFWAqJYFwYiIyUTSOQA1FOCRkJRTp sXVlNIIdSFBJAM2JJQznKXS0BdaredIlxPPaEMigRF 9QYXJlbnQgNDIgMCBSDQo+Xs8TEF2qz6ZkATz2VZXyVK6mjf6DLAqPThFiH3U9fWUlQ6Z0XDgfTp2OZL OrZYPtPQTyDQUUOCfoIW7ZVA6rroE3KS7MnKFrKUOoNFSkkZZmCPl0Z41ibNFcBPqiTW3ALKP+Mau+Pg 8BHNUwUDFjZMUwZjPqGLKNKuBzV3KfH4GDx3EeV5Pg MX51eBdtmoFpPLgiVF4OEU4pBVIaSXQIDS2TsWFkcS4artV8NfOvSXJCNwQqW56amQPeUSEbVRLaJFEb Bz8COMZoO1RihyZhuEzigsBcPKPxAREZDP6SEMyvgtQyvUAzcTxnSF81iRofPW9NQp4NUlIcAX5zfy1P vUNmBs2CGPB7HD0CBVKyJXHpANDiNEP6XEWzHpNxRJ hxCCHeFQSyIZN0IPMoSJLzXT5UIaYuDNTpWtypCUjkLDGmBQCwiz8XZMLcYCV3HGFuIrYiQALdBMXrNG hsQQEzBSPaDBJ0FOGiUTNdQS1ARrSwMTEbQZRsGtEuJRJfLLEsgd0LMJCdUECmJaD1NDDaBSOgOJUvKM fuRDZgHOE2EmdaKJFdPQOsOG5KFePhLPFzPVB5UCKv BKQoGRGmov4FYDPgRAOzTTW5OqGbWHGgHJOnTWwkKLNmBVR1QCh3BZLqNJHkBW2DEdQcVLGwNGV2DRov CNReVRNqnh8HNITsFIUcQKO2RPRqAQOmPKItIIoaHQNbDTIxAHR7KXVoFAWqRD2RGqUmKKWtMTY4IPZc DJHgFJXlre7SPYJiTFSiVVS6ZXAhXUJxGDWaDRqeZX PlIMZ9OXr5YNCpYEOlXD7QTdXfRONxLVrhYESePEVzNTYkox4BCLMtFGDdIuB7YLKuTKZtZOOdNUdaEV YlSVB6KVG4JJZrMYSnXX6BCjUmXODmLRwxXyIxRINrNEEgwz3WAASiLUIyFGBuKANvOZKeFOTmGTlpDF HgICP5VUHxRKFkRFEbFS6KLqQvCHEjHMm8TSHtNEFl PRTlmp3DWZFxDFWnCZD3FRTkPPKpGVQhHCkxZMBlESRfIhN2SXLdIYFyVT3EVfQnZQZeQjR7YZJcYWFi NCKcpy3TKWJdGZKhGChsWVClYLVsLBUeBTefTDLqNGCbQEK5UPMiYDLqOV4SKsJkFXYlNzMzMNDhFDSa HCGjhk7FJXXuEGVeXaU4EZCnBNYfJZDbCSxaVUIeLV LyXFV5LINoNGPvKN4JVsKfPEHiTaR6GEYyJYIaAQSvvm2MJMMtTSOxHLQzYMItIOTjJUVmKZjgGPAbPY O3OPF8DBNjBVBvWE3IGgAxJGMdTqZ4RPOpRFJtOMFebo1HGRMjAFBgWYJkCKNaHSPvMAGkCKweKAKeDL V3QzM8UMDjKMEyUR4DMhHkUIDgOyi2JLjzKIPbYGLc kg5IZJJjJARkOKU3FKZpXIRlYOBcTIkrTYDwXJX1YwW3FSDgESPvBW5CXdKvUGOrRwt4KLDwYQVhKQMu wo4BQCEeDCJ3MLJ0BGMbFGUjIHUvFVezDEEwZJJoCcKuCADhLGUfCP8QUzCbOHMdBJGgHTrxXTXuXXDg aq4GzAEeoRkjgw6HPVtTSc6UwZqeDGU2EYlhCv4hzS P3WHYtXPRHVc3TszNnZROuQQDNUBvkOZToVNqnUALbEHF1VZMmQYXcYYY4GCH1YFFgVeIiVRUrCmX6Tl B5P4W8FfEuFVWjXnI5UgJ8SygiVhq0TqM4BdCfHjJnAqD+DR8yYNw+Kp9Et7RmpoX5axIfYIj5JLYaIB 9GTXPHY8BRSn== ID Date Data Source [id number] 03/24/2021 02:16:15 PM EDT [facility] Name Value Range Interpretation Code Description Data Arabella rce(s) Supporting Document(s) Care Plan [facility] MSYNSv4vQnQACrZa22/VJXqvCFOzu8QiMBdwBQj7OHsdFMZsR4CaVMQ1zK5aRGJ0AOdHWsMnYyQcNQY9 lbm [file] AgICAgICAgICAgICAgICAgICAgICAgICAgICAgICAg ICAgICAgICAgICAgICAgICAgICAgICAgICAgDQogICAgICAgICAgICAgICAgICAgICAgICAgICAgICAg ICAgICAgICAgICAgICAgICAgICAgICAgICAgICAgICAgICAgICAgICAgICAgICAgICAgICAgICAgICAg ICAgICAgICAgDQogICAgICAgICAgICAgICAgICAgIC AgICAgICAgICAgICAgICAgICAgICAgICAgICAgICAgICAgICAgICAgICAgICAgICAgICAgICAgICAgIC AgICAgICAgICAgICAgICAgICAgDQogICAgICAgICAgICAgICAgICAgICAgICAgICAgICAgICAgICAgIC AgICAgICAgICAgICAgICAgICAgICAgICAgICAgICAg ICAgICAgICAgICAgICAgICAgICAgICAgICAgICAgDQogICAgICAgICAgICAgICAgICAgICAgICAgICAg ICAgICAgICAgICAgICAgICAgICAgICAgICAgICAgICAgICAgICAgICAgICAgICAgICAgICAgICAgICAg ICAgICAgICAgICAgDQogICAgICAgICAgICAgICAgIC AgICAgICAgICAgICAgICAgICAgICAgICAgICAgICAgICAgICAgICAgICAgICAgICAgICAgICAgICAgIC AgICAgICAgICAgICAgICAgICAgICAgDQogICAgICAgICAgICAgICAgICAgICAgICAgICAgICAgICAgIC AgICAgICAgICAgICAgICAgICAgICAgICAgICAgICAg ICAgICAgICAgICAgICAgICAgICAgICAgICAgICAgICAgDQogICAgICAgICAgICAgICAgICAgICAgICAg ICAgICAgICAgICAgICAgICAgICAgICAgICAgICAgICAgICAgICAgICAgICAgICAgICAgICAgICAgICAg ICAgICAgICAgICAgICAgDQogICAgICAgICAgICAgIC AgICAgICAgICAgICAgICAgICAgICAgICAgICAgICAgICAgICAgICAgICAgICAgICAgICAgICAgICAgIC AgICAgICAgICAgICAgICAgICAgICAgICAgDQogICAgICAgICAgICAgICAgICAgICAgICAgICAgICAgIC AgICAgICAgICAgICAgICAgICAgICAgICAgICAgICAg IORwSMIlLISaAWQnPAFqCFEkWOHjUHHrGXSgBPXuAQUyXFCvRAe2O2dhSEDoUZHmBB4oJCk2Vd0+DQoN JmHvWCW0bkCxrF4NVK0ht6IcWLhlHHZlj8HtBHo6HF6EJVQsSCqoLH2KOAzwoi0BPWUwEZRayKEHw5ea XkKkZAE6QMQnAilvGH6GEPNnX7isfkSkXQKvVKJVBX 9MRhYoV8HcvE96WSHTIe4+UDgsidMqLdhHPgB3IVYkp3UrLBw6MR3JSEXoDioln9GqHwSrNLFDEZsqMB 7MSVL4TCM5TYWyNh7INTGlI009qqFnXS3YJj4WJhPiMV1wai4TDoXbTFDiOvkRWgv6DCzzGH7ClQVwEQ qYESOiZQZlAW8mKasgXLXtBNKIvMh2mCgkFh3iUMXk RU6zYg7iZDMnZWUnHxC0REWNHL5INLAkHIRjqBShQNFyFICDXJ7XOWibZWI5ZfwmpoHnkEDbTKupDE1K YXJlbnQgMjUgMCBSDQo+Qm2TIG9aa8LgETmvJmVeHF3wei4IJBfLXvXyA5L3gEWxD2E5JIolLc4VHPDs JKAsYfPrFUZKBOhjZO1WBK1iwbD0YM9LtEYvQUPkDN UseGSfUUu4P08gsMEaTVxgVC9OVTO+Mau+Wm9BDGPpDVHuUGJvDyEfLQHRTyCmO5OiW8PEz5WyD2JxEA 10xGjhupBhVZeaHN0XJS5iJUAySWBBIS5DgEPjkD3zhoBbNJWrRXVGKsRxB66jgMQeFORnMDM0FVDaYo 4UKPOoU9NmsiXhoCvfgrAlGCHbRWDKYY7AGFvloqJh iKWqsLpcEV46iVkbVU7PXw6QAoYyFE7kkk4QsXGmHg8EVQTkLW2AZSSkUSUxTTZrSTJ7KFDiUkNsQHsp CCPzOJFgSDL6KOGeWUAiWN2HFrIvIUBkUkL5GIDnFLZyPVTjfm4AHNByXQSoPpThNaPpFPPvOJEbTRdf OWWcJFCdKAX5SYXjAEUsCA3JYaHtTLXsTRZ4HKbnVP JfVXKdsn3VPTTrCZXtFbM3JuRqLFAvAZAuHVtsGFJsOZRrHXAtODXmWTNuRY9ZAcXlGNKmKTUgYdHtGG VkJDNqre5GVNDqIFJyYgVoYzXqGNOoUCHgXMusIFPaSOT5CQJ5HFExKXWtJN4QBvBsUTAuMVC7IeGuIO DfOTEino6UVNGtWNCdRBq2SGYoRMJpOKYkQYscFUYk JCJ5SBpeDVDfUKXsVU1LTvQtGDTyHUz1YYqzHKVyYCVeei8EJVLfZDGeVnprUPXvALWqYXPzBQfkFPHb SIT5ZUO3ZELdJSDhQG2DUeViIUHmULrmPMOsHVXdJCGqxb5JGKWnMIFfXVW2CmHbIZOoJCEdKKlyFOKr NAE5ImC9QSRyULNxGW4TOhSmVAXiTFn0XsBaNRUkDW Lyds2PLTMeTEQdVZJ2ByFsIGHvITDkTVcvNOArNOExKFI8UCXgITBeSC2EMvIjGDGbXqF5HhLoYTGdMX Khdn2QQKAbAMOkJYI9KyYkTXElEYWqIRyvQNIoANNxXoCbAGFtXHNmHF5VFwLaRUEoPfS6MlTgMPQwBD Rmls9ZWJWzAWBgZdypMTMyXEUfXESkHVh1knBleKNe CSu6SL9KS8DsjzKcAnqLLe8Hr340LWL1TQYiLe9MS6oiXc5aPWDxFLSFGs5HUYz9JEIzLSKjTCL5COMx LNRzACbmA5MoGiw5M9A7BdB4YgT+KSidAKD4T3M9Yfq7KvDgIAFxRFUiDyF1EWHxExEbHEt6Sj0jQREX Cj4+BIouuWIyvJjmILOTNhOmANF3ZLeoJLGGXa9M ID Date Data Source [id number] 03/24/2021 01:20:24 PM EDT [facility] Name Value Range Interpretation Code Description Data Arabella rce(s) Supporting Document(s) Consults [facility] MRFBXy5tWxOKMxDh07/UGKcfCLMmp9OuUSldNVv0COtvIQTbU5MfHAX0mT9tFNC0SHrMElCaMaZiPZB2 lbm [file] BSDQogICAgICAvRjEgMTcgMCBSDQogICAgICAvRjIgMjAgMCBSDQogICAgICAvRjMgMjMgMCBSDQogIC JiJHKbXwUyHwWpURVHULuoHKKxUWUaSxEgLdyqWKOXGa9NFsHmLLYkXY3wbiHciZK7AFB+Op1UESZkID 3QzMXXC9OgrOHrAJrlI7VIQB1UYQM4JD3ZkUGfEI7R pNPVQ2QjvSBeSp6mZNOps3QgWr4mY0YOLANZHYVmTHdaYTcfIUTgJZc7Q6F5DGPzN4YDJ237lUQphTb2 Rc8vL1YYZHtQAwSlBUsxYNsfEKDeYCo1M9U7AEQuX7DTW6UqObGflbCqF8T+ImWqEUGXBO7XOSURCCn4 P4V3yRDoZ4Y2nMzNcFH1RW5WFW7QsTKlyHGqs25+Pi FXTrLvKHYiN4BRRJUXXwPhAYjwMUzoNQOvCUk4W3V2XPGkJ9HUD5ovX8v0YM8+HkDENgVjMDFkYc8BMi ZaTc2XOiPkXM9mlx6VVdCvVJNvWfuPSnx7Y3xqjzl3qRAnPcC5M8X3OtH4lXByNN8QC3J9kYGbCBT0JD RhdGE+Ju0Vq1GhARNyAGk7U9ssQKXtEDMwSvRcbN18 J++7lhhuqIL2Z0d0GCOUmWWxpGfHoaHgR6bHGTQ1o6X4QXp/Ja3WCZF1aDg9tYFxADRcBHi8zP7fgZo8 WxYkNX93FGDgQErahO0qBap2K4Ods8HbUo9oJl1aqUQpCi9YVkAwBGQ7ntAaTbZAXhV2aTzxtuinDMB6 U8c9kOG2Le46v5lxmaRqu4FuXaE2JWubCSDwXdRsqm YyCYE3hdJpzM9opdWdKj9EVLUeEQdagcYyFgLIVo3POmMxBN27ScgpqA0exSE+DQogICAgICAgICAgIC AgICAgICAgICAgICAgICAgICAgICAgICAgICAgICAgICAgICAgICAgICAgICAgICAgICAgICAgICAgIC AgICAgICAgICAgICAgICAgICAgICAgICAgICAgDQog ICAgICAgICAgICAgICAgICAgICAgICAgICAgICAgICAgICAgICAgICAgICAgICAgICAgICAgICAgICAg ICAgICAgICAgICAgICAgICAgICAgICAgICAgICAgICAgICAgICAgDQogICAgICAgICAgICAgICAgICAg ICAgICAgICAgICAgICAgICAgICAgICAgICAgICAgIC AgICAgICAgICAgICAgICAgICAgICAgICAgICAgICAgICAgICAgICAgICAgICAgICAgDQogICAgICAgIC AgICAgICAgICAgICAgICAgICAgICAgICAgICAgICAgICAgICAgICAgICAgICAgICAgICAgICAgICAgIC AgICAgICAgICAgICAgICAgICAgICAgICAgICAgICAg DQogICAgICAgICAgICAgICAgICAgICAgICAgICAgICAgICAgICAgICAgICAgICAgICAgICAgICAgICAg ICAgICAgICAgICAgICAgICAgICAgICAgICAgICAgICAgICAgICAgICAgDQogICAgICAgICAgICAgICAg ICAgICAgICAgICAgICAgICAgICAgICAgICAgICAgIC AgICAgICAgICAgICAgICAgICAgICAgICAgICAgICAgICAgICAgICAgICAgICAgICAgICAgDQogICAgIC AgICAgICAgICAgICAgICAgICAgICAgICAgICAgICAgICAgICAgICAgICAgICAgICAgICAgICAgICAgIC AgICAgICAgICAgICAgICAgICAgICAgICAgICAgICAg ICAgDQogICAgICAgICAgICAgICAgICAgICAgICAgICAgICAgICAgICAgICAgICAgICAgICAgICAgICAg ICAgICAgICAgICAgICAgICAgICAgICAgICAgICAgICAgICAgICAgICAgICAgDQogICAgICAgICAgICAg ICAgICAgICAgICAgICAgICAgICAgICAgICAgICAgIC AgICAgICAgICAgICAgICAgICAgICAgICAgICAgICAgICAgICAgICAgICAgICAgICAgICAgICAgDQogIC AgICAgICAgICAgICAgICAgICAgICAgICAgICAgICAgICAgICAgICAgICAgICAgICAgICAgICAgICAgIC AgICAgICAgICAgICAgICAgICAgICAgICAgICAgICAg OXNqROWoCOl3O7qdFPMoLEXoLD7xPTv3Xr2+CIgRWwSmBIS8zgScuI8GYR0od7OqLOfmJUPmq2LlSIa9 JP0MMPAxWRlfQO1BDIbjwy5BNDBgMJTaiSIOg6jmRfCvZRL4JGXbLmkzYV6QKVFhP7nbsrCkBONaTRKJ ZAvnCRHNZNfrWEBHLKFyZKJaShMzXZlqSV3Nm3ZjcB A0DQo+Pk5CVU5hb2IsJMvyAaCgXA1tgn2TIOyTXsHpI4ZqksZ2RBCbYXEzCd0WYLVcGIZvkNMeKjTnAQ UWGlJwG5YhoA63OXBXTd0+DTtwdeVkVfbMCwTuFXBjk1LfQMb7NX1MQUZxSAo8dJYvA72fn4IrmCPqOa twXCK2VKXznbNVAiBUfrU8FDauQCZjAKCuIN0oFq0t UONbBHKoSnW4MVWWTR1OSIIdHBJjsSNqMAPwOXHEBE1OCAviGLM8OfbyapOskXCqUNcgQX6NWLBkvdSv MzIgMCBSDQo+Nm6ZFS6bi2RhRZokHKNgKO2lzn7CYRaAKbEtL2Y1uHCpO6B9HShdQn0BUJBrHJYaSjNx IBQPOUvoBI5SJK2itfD6IH0SnFTgLDKmGKZbxXFbQR y6C09mjLCrXBtxDR8XARZ+Mau+Pq7MFJBoKFOeSFZnXcNgSOBUHkAmK0HqH6ELc6GiS2PyVL49oTqkta ShMLjfBK6CYJ0lGHMyJKZTFH1PtXSrjR1aqaZiUuPdPBWOYmIpU34kwILqWEHlMNWsDFHvZz6MTDQzL2 GejkLhjKjfmtZvOTUlOMBXZG8ZQAizhlFljAZbtGfy TC61pFtuTQ8IMw2CZbRxLE2tip2WzTIxYt6HQOSoIB3BWORfGEYdYVTbZOJ6JXLwWcEgOVssWWJtWOLq ISS7BPOfEHQaUX8ELiOuSOEsOaYfSKVxUMSyCIHrsk0FWBPfTWBfJjT8WJJaLJQrRBBcTCgaPCKbBNKq ZZN3RCMoOYNmYN1EHdYjFZKrFZZ8JcHmBXJuSEMejp 5WGZZmUCIyEju9ZYBkIHVpCAVyYAaoIDFkKZB0EPP8BXEzFXBlVB9HEgMpVFQgMTudHhkbVQYjGMWugy 1GZQTrZDRrKNCiGAWkYXFiVFBuILdkPFRjWSPyThA5YRLiPWIjPT1LZuLcQQSuXAK6ToCgWDJhPJKdqx 0MYSMuZYYtTjX5UiYfBMUgMQVzJYhlMEBtGHT4YPNt ACFwSZKwET6OIwGuXSXbUNDfBdIrTJTuEZFoyj7UZQAkJDBbNWQhZVRkSAGoXWDqFJkfXXUnLYZ2AGtl AXUzFRDjCD4GLmHzEWWrZOU3CadiFGKaRNTcia7DVIWpFKHwZEe3GUSvXIHjDAWsWGocRFAmWBU6EVQ3 LWXbQBTwBE7PGkJdVVRePSxgBtPfFJOfYGQlgo3ACG YzCKJtIvEcFVXdPYVvEXGtBQlkKZIfILU6YLL9EOOtIFOmYU5ONcAbHTZtZGkcWkQsBUVkXOWsvu8BLL MnAFIyVSS2SYHxKHQkQNUxAAheWKOlYWR3QQZuZMQxTMHnUO1GUvNpPQGwFFo7HyzjIQCyKGMosh6FBW ZaCTKzLVsyFjPuDXDcTNHvFGloIIWiPPIyUBb6LQVq UBVuKG9GMuSoZIJxHbFzHlIfWAPnCMGxgi4EGZOrJLNxDFQ7SVUjYQYlYDUvZWkuHJRaVXOlEjW8WMJm HEEwNJ2LWrKdITTgOmRpPOZxZGMvDVKftu4DBWWeDBCmBnY3NhCyDHVjIZQzCNnjOSKxNQXlTLYtRHJm LYUwCM0GPjLvFCozKMORLos9KFezE0p8ZIPdIQ1WB5 Pfp5OyHbXrZNBKXNndWC2ypyVxALWoHi4YZ0xMBnrpOOVyPHF1CIGjWtH4JHKmZPZ8NWPhQuIuVPIxO8 BxTD9tCPUoJ7PfFUX2LDKkRKCmVKInODhkVWRaQZT9LVK4LJA7DjMbPR4BQa4YWdE8YGE7dURxQb7VFy V1EZTNLbSlKK1ODBy= ID Date Data Source [id number] 03/24/2021 12:26:04 PM EDT [facility] Name Value Range Interpretation Code Description Data Arabella rce(s) Supporting Document(s) Progress Notes [facility] ZVTVQy5rJlVXGdLe31/AOGreBYVav1NkGHdfOMp6YEagMMYyO9WgHUL0gM0fPYF2DSmPBpZlExGnETQ9 lbm [file] BqPEG1J5SxJEU3AjI0MEIlApViDE0VAj7JDqO5XEL2aSEyTh7BFnJ2BLKXEsWhWE2APEc= ID Date Data Source [id number] 03/24/2021 12:13:35 PM EDT [facility] Name Value Range Interpretation Code Description Data Arabella rce(s) Supporting Document(s) Progress Notes [facility] WJMHQr9fWcFEEcAn28/GWVptREDar0RwXNnfDCv8CWztQAAkW0GbLZX5xQ8uXMI0WPbKJhKtQhEgUPF0 lbm [file] 0K ID Date Data Source [id number] 03/24/2021 05:26:27 AM EDT [facility] Name Value Range Interpretation Code Description Data Arabella rce(s) Supporting Document(s) Nursing Note [facility] OGMDHm4mKdFVMqLe97/VNDumHLEth8ZeQMnaGUk1KZkhTUEfQ4BvBJO2zN2hGIM9QGuVIgRkDcPqBND2 lbm [file] CsDSRfTiU8ZeA8ZiRkVNNwBeHiXJ2YWs6MGgV4XNH8qCYoAw0FLvHmJLnAJmDhCE9TUGi= ID Date Data Source [id number] 03/24/2021 05:34:00 AM EDT [facility] Name Value Range Interpretation Code Description Data Arabella rce(s) Supporting Document(s) AST 12 IU/L 15-37 Below low normal [facility] Sulfasalazine and sulfapyridine have the potential to falsely depressAspartate Aminotransferase results. Baseline values before medication administration are recommended. ALT 17 IU/L 13-56 Normal (applies to non-numeric resul ts) [facility] Sulfasalazine and sulfapyridine have the potential to falsely depressAlanine Aminotransferase results. Baseline values before medication administration are recommended. Alkaline Phosphatase 53 mIU/ml 50-136 Normal (applies to non-num madiha results) [facility] Total Bilirubin 0.70 mg/dl 0.20-1.00 Normal (applies to non-numeric results) [facility] Blood Urea Nitrogen 6 mg/dl 7-18 Below low normal [facility] Creatinine 0.62 mg/dl 0.51-0.95 Normal (applies to non-numeric resul ts) [facility] N-Acetylcysteine (NAC) and Metamizole em ve the potential to falselydepress Creatinine results. Baseline values before medication adminstration are recommended. Patients undergoing treatment with phenindione will have falselydepressed results. Patients on phenindione therapy should be tested with an alternativeCREA method.Toxic levels of acetaminophen may lead to falsely depressed results forpatient samples. Glomerular Filtration Rate >90.00 mL/min/1.73m2 [facility] GFR Reference Ranges:Normal Function or [...] of Health and the [employer]. The Elsie method used in calculating this result is traceable to [employer] standards. Glucose 91 mg/dl 70-110 Normal (applies to non-numeric resul ts) [facility] Sulfasalazine has the potential to false ly depress Glucose results. Sulfapyridine has the potential to falsely elevate Glucose results. Baseline values before medication administration are recommended. Calcium 8.2 mg/dl 8.5-10.1 Below low normal [facility] Total Protein 6.2 g/dl 6.4-8.2 Below low normal [facility] Albumin 2.8 g/dl 3.4-5.0 Below low normal [facility] Sodium 141 mEq/L 136-145 Normal (applies to non-numeric resul ts) [facility] Potassium 3.9 mEq/L 3.5-5.1 Normal (applies to non-numeric resul ts) [facility] Chloride 113.0 mEq/L 98.0-107.0 Above high normal [facility] Anion Gap 8.1 [facility] Carbon Dioxide 23.8 mMol/L 21.0-32.0 Normal (applies to non-numeric results) [facility] The above 16 analytes were performed by [facility] [id number], ,[place] [address] ID Date Data Source [id number] 03/24/2021 05:34:00 AM EDT [facility] Name Value Range Interpretation Code Description Data Arabella rce(s) Supporting Document(s) Magnesium 2.0 mg/dl 1.6-2.6 Normal (applies to non-numeric resul ts) [facility] The above 1 analytes were performed by [facility] [id number], ,[place] [address] ID Date Data Source [id number] 03/24/2021 05:26:00 AM EDT [facility] Name Value Range Interpretation Code Description Data Arabella rce(s) Supporting Document(s) WBC 6.03 x1000/ul 4.80-10.00 Normal (applies to non-numeric re sults) [facility] RBC 3.58 x1Mil/ul 4.20-5.40 Below low normal [facility] Hemoglobin 9.3 g/dl 12.0-16.0 Below low normal [facility] Hematocrit 30.2 % 37.0-47.0 Below low normal [facility] MCV 84.4 fL 81.0-99.0 Normal (applies to non-numeric resul ts) [facility] MCH 26.0 pg 27.0-31.0 Below low normal [facility] MCHC 30.8 g/dl 32.2-37.0 Below low normal [facility] RDW 16.3 % 11.5-14.5 Above high normal [facility] Platelet Count 230 x1000/ul 130-400 Normal (applies to non-numeric results) [facility] MPV 11.6 fL 9.4-12.4 Normal (applies to non-numeric resul ts) [facility] Neutrophils 46.6 % 40.0-74.0 Normal (applies to non-numeric resu lts) [facility] Lymphocytes 41.1 % 19.0-48.0 Normal (applies to non-numeric resu lts) [facility] Monocytes 9.1 % 3.4-9.0 Above high normal [facility] Eosinophils 2.0 % 0.0-7.0 Normal (applies to non-numeric resu lts) [facility] Basophils 1.0 % 0.0-2.0 Normal (applies to non-numeric resul ts) [facility] Immature Granulocytes 0.2 % 0.0-0.5 Normal (applies to non-nu meric results) [facility] Nucleated RBCs 0.00 % 0.00-0.20 Normal (applies to non-numeric r esults) [facility] Abs. Neutrophils 2.81 x1000/ul 1.92-8.31 Normal (applies to non-numeric results) [facility] Abs. Lymphocyte 2.48 x1000/ul 1.20-3.70 Normal (applies to non-n umeric results) [facility] Abs. Monocytes 0.55 x1000/ul 0.14-0.97 Normal (applies to non-nu meric results) [facility] Abs. Eosinophils 0.12 x1000/ul 0.00-0.76 Normal (applie s to non-numeric results) [facility] Abs. Basophils 0.06 x1000/ul 0.00-0.22 Normal (applies to non-n umeric results) [facility] Abs. Immature Gran. 0.01 x1000/ul 0.00-0.02 Normal (appl ies to non-numeric results) [facility] Abs. Nucleated RBCs 0.00 x1000/ul 0.00-0.02 Normal (appl ies to non-numeric results) [facility] The above 24 analytes were performed by [facility] [address], ,[place] [address] ID Date Data Source [id number] 03/23/2021 11:42:40 PM EDT [facility] Name Value Range Interpretation Code Description Data Arabella rce(s) Supporting Document(s) Care Plan [facility] YAYIWp5sSzSERqVn58/CAOrdASNgu3WvVJvzSUe8ZBybCNUhF5VuQTQ1aN0vPDL5RZzLLwWpPsAcNHT1 [facility] [file] AgICAgICAgICAgICAgICAgICAgICAgICAgICAgICAg ICAgICAgICAgICAgICAgICAgICAgICAgICAgICAgICAgICANCiAgICAgICAgICAgICAgICAgICAgICAg ICAgICAgICAgICAgICAgICAgICAgICAgICAgICAgICAgICAgICAgICAgICAgICAgICAgICAgICAgICAg ICAgICAgICAgICAgICAgICANCiAgICAgICAgICAgIC AgICAgICAgICAgICAgICAgICAgICAgICAgICAgICAgICAgICAgICAgICAgICAgICAgICAgICAgICAgIC AgICAgICAgICAgICAgICAgICAgICAgICAgICANCiAgICAgICAgICAgICAgICAgICAgICAgICAgICAgIC AgICAgICAgICAgICAgICAgICAgICAgICAgICAgICAg ICAgICAgICAgICAgICAgICAgICAgICAgICAgICAgICAgICAgICANCiAgICAgICAgICAgICAgICAgICAg ICAgICAgICAgICAgICAgICAgICAgICAgICAgICAgICAgICAgICAgICAgICAgICAgICAgICAgICAgICAg ICAgICAgICAgICAgICAgICAgICANCiAgICAgICAgIC AgICAgICAgICAgICAgICAgICAgICAgICAgICAgICAgICAgICAgICAgICAgICAgICAgICAgICAgICAgIC AgICAgICAgICAgICAgICAgICAgICAgICAgICAgICANCiAgICAgICAgICAgICAgICAgICAgICAgICAgIC AgICAgICAgICAgICAgICAgICAgICAgICAgICAgICAg ICAgICAgICAgICAgICAgICAgICAgICAgICAgICAgICAgICAgICAgICANCiAgICAgICAgICAgICAgICAg ICAgICAgICAgICAgICAgICAgICAgICAgICAgICAgICAgICAgICAgICAgICAgICAgICAgICAgICAgICAg ICAgICAgICAgICAgICAgICAgICAgICANCiAgICAgIC AgICAgICAgICAgICAgICAgICAgICAgICAgICAgICAgICAgICAgICAgICAgICAgICAgICAgICAgICAgIC AgICAgICAgICAgICAgICAgICAgICAgICAgICAgICAgICANCiAgICAgICAgICAgICAgICAgICAgICAgIC AgICAgICAgICAgICAgICAgICAgICAgICAgICAgICAg ICAgICAgICAgICAgICAgICAgICAgICAgICAgICAgICAgICAgICAgICAgICANCjw/aQJrL2ttdCWaukH0 T7dhYa1BUd9UTJ3bn6WwBHHnWAkkbsKxYfpBIkFrEINsKniMVqc2PCkvBP8ViSDcN8AdJ4OaPJoiHY5G UYVlYJWvuUMdVTKiCJKmJuZ6PZPiDIhvIP1PbDXbKW bbUCCgNGTwGY3HRRQyK437huEyEC2UFa5TUpDrFD1dfn8FPnMcRNIcBwsRKno4KCclLR5PhBMwxZLrWa JqKKXRHkUvD6zey8SsTqQfYBQRYLxoFL9Sm0JagXDcWFq+Sz9ZKC0lx5WpNJqvXgJvRT1igo3RRFxSIl PqW8CwjNunIAShjhIiJWtmxmXvoEJIGWK0HU9bUPVy pkKxLGfaDJJPVVU5PNgeRVYpGePtSXLmNEq4GmRMLGbFUlViB1Wcv2CeLmS4RAUnCyTgWOpiIAAbGjE1 BR82rMyjFF1NOIBzESMxWA69YRF7MTIfWv2VOc7SNaDpTN6tsh1OMxddRSPhZpsPUuf6XTcqCX5DfFKt V7DbuGXze7zJXsAfM8BTOVJdRGSsNv5TJMPcXvDdTL QpBXyzQQ9lCAUuYMOVrZpfyxS0SR1JLU3uxmJrSS9TMhYiCn3aWt6BZrJtT6ZsE4ZcWVYhPCHVORcuQC 4XHTwbNR2pVY2Rq6DGqFVczG8wkl7AOVOiMTOrIjpcff4DIqndJ7N4nOwlBWEfRxJcJGVYKTbdYE8NJR UjRPP0WUNyJUOtWOQPDnSxK60hCG4OA8Gwl97nCkP0 OFEyOxOiSRsnYT30aVloweNleWUohLajWZ4GXv5+DQplbmRvYmoNCnhyZWYNCjAgMjgNCjAwMDAwMDAw MZMvWqV0QlIcCe9JNVLuFXPxBRZgUpWzKWCuBCFpBVulVLZyZUYqHmTmQUIxZWXuMW6XLyQdHYZkBfK3 NTRaDPPnBWJomb9KKBBuCHNmDJU1XdAbAZBlSCPyJB wrLLSdFFLqZWD6EXUnCKHiQH4ILdMuVOIcTQFyCpSjQYQzNDKkgx1MLYFsLETlJhAgSVWcVQEpVVXtHR biHJZnTXXgIdN3KVFuACDnWK8MCsBaYGSnAYS7NFJvEFAjSTOwzb9EFOKjABMpYAD9OlNeQIIdNFPjKS ukDMGqOOI3VooyAHSyGVGrIB4MGoMnENYzWEM7XSDe GEYnWRJoic3ZSPXnLSVyJhIiNBRiMYWnGKKpQXdmJKHnJSB4YZO3IVEkOOSkBQ3STpJuMUSvNUg7UdQs INLuIEZmrg2TWBLmHTUrKys6ScOiUJLcCSDwUYcxYZWjFYX1KTVeTXNiRDOrHM2ZWqLrPWQyQMbjIIDl YETeCKIutc7NRSKkEFDcZSV0ClCsLVFjPOZqVHwqCJ FdGAW0VWO8IVGlDCZqPD9KGxVhJUHhEcMyQDBjVZIdQMNgex3GNSBkFDTuEUK7VTGkJJSqHMHlOLkcTP GgIYJpGiV3GEPbMZNhBW0ODnVoEXBaQlFqXkIkQBLwSSCkrg5UUMBnYAZuJrXsIPJeBIWfMJZxSBvsQO ZnSJOvNvr6VFWjYDWnNY9GXhQqXGNgGnU9YzKqZXSa ZCDqxa2CqPTtkWmcfd6BTAdCXe2QpZkvSPQ8VTinWp3nmWYaAwGjSZCVVd3PcdJfIPRjFLFEJKmsWWRc GDpoWVb3SvK7TEMkSRXqSeWwIMKjDRZsGlRpKXqsKaqmObV5OPM8TDupSeWlVYErWOX3A6KjIwJ1YhOz COD6YQGvSVR+TC2uPXy+Ax2Jk6BkrmC9juDkRYofMqR8GG8TQURQG3ZKHf== ID Date Data Source [id number] 03/23/2021 10:26:00 PM EDT [facility] Name Value Range Interpretation Code Description Data Arabella rce(s) Supporting Document(s) Glucose, Fingerstick 103 mg/dl 70-110 Normal (applies to non-num madiha results) [facility] The above 1 analytes were performed by [facility] [id number], ,[facility] [place] [address] ID Date Data Source [id number] 03/23/2021 10:23:00 PM EDT [facility] Name Value Range Interpretation Code Description Data Arabella rce(s) Supporting Document(s) Lactic Acid 1.8 mMol/L 0.4-2.0 Normal (applies to non-numeric resu lts) [facility] The above 1 analytes were performed by [facility] [address], ,[place] [address] ID Date Data Source [id number] 03/23/2021 09:48:00 PM EDT [facility] Name Value Range Interpretation Code Description Data Arabella rce(s) Supporting Document(s) AST 12 IU/L 15-37 Below low normal [facility] Sulfasalazine and sulfapyridine have the potential to falsely depressAspartate Aminotransferase results. Baseline values before medication administration are recommended. ALT 16 IU/L 13-56 Normal (applies to non-numeric resul ts) [facility] Sulfasalazine and sulfapyridine have the potential to falsely depressAlanine Aminotransferase results. Baseline values before medication administration are recommended. Alkaline Phosphatase 56 mIU/ml 50-136 Normal (applies to non-num madiha results) [facility] Total Bilirubin 0.80 mg/dl 0.20-1.00 Normal (applies to non-numeric results) [facility] Blood Urea Nitrogen 7 mg/dl 7-18 Normal (applies to non-nume ny results) [facility] Creatinine 0.67 mg/dl 0.51-0.95 Normal (applies to non-numeric resul ts) [facility] N-Acetylcysteine (NAC) and Metamizole em ve the potential to falselydepress Creatinine results. Baseline values before medication adminstration are recommended. Patients undergoing treatment with phenindione will have falselydepressed results. Patients on phenindione therapy should be tested with an alternativeCREA method.Toxic levels of acetaminophen may lead to falsely depressed results forpatient samples. Glomerular Filtration Rate >90.00 mL/min/1.73m2 [facility] GFR Reference Ranges:Normal Function or [...] of Health and the National KidneyFoundation. The Elsie method used in calculating this result is traceable to IDMS standards. Glucose 48 mg/dl 70-110 Below lower panic limits [facility] Sulfasalazine has the potential to false ly depress Glucose results. Sulfapyridine has the potential to falsely elevate Glucose results. Baseline values before medication administration are recommended.Repeat and Verified Called To (First Last):OBEY VALENTINE Degree/Accreditation of Person Called:RNLocation Called: [id number] Tests and Results Called:GLU 48Additional Tests that were Called:Read Back (Y/N):YDate:03/23/2021Time:2148By:CARTER CORDOBA Calcium 8.2 mg/dl 8.5-10.1 Below low normal [facility] Total Protein 6.6 g/dl 6.4-8.2 Normal (applies to non-numeric re sults) [facility] Albumin 3.0 g/dl 3.4-5.0 Below low normal [facility] Sodium 140 mEq/L 136-145 Normal (applies to non-numeric resul ts) [facility] Potassium 3.3 mEq/L 3.5-5.1 Below low normal [facility] Chloride 114.0 mEq/L 98.0-107.0 Above high normal [facility] Anion Gap 8.3 [facility] Carbon Dioxide 21.0 mMol/L 21.0-32.0 Normal (applies to non-numeric results) [facility] The above 16 analytes were performed by [facility] [address] [facility], ,[place] [address] ID Date Data Source [id number] 03/23/2021 09:30:00 PM EDT [facility] Name Value Range Interpretation Code Description Data Arabella rce(s) Supporting Document(s) Magnesium 2.0 mg/dl 1.6-2.6 Normal (applies to non-numeric resul ts) [facility] The above 1 analytes were performed by [facility] [address] [facility], ,[place] [address] ID Date Data Source [id number] 03/23/2021 09:30:00 PM EDT [facility] Name Value Range Interpretation Code Description Data Arabella rce(s) Supporting Document(s) C-Reactive Protein (Non-Cardiac) <2.90 mg/L 0.00-3.00 Normal (applies to non- numeric results) [facility] The above 1 analytes were performed by [facility] [address] [facility], ,[place] [address] ID Date Data Source [id number] 03/23/2021 09:05:00 PM EDT [facility] Name Value Range Interpretation Code Description Data Arabella rce(s) Supporting Document(s) WBC 6.19 x1000/ul 4.80-10.00 Normal (applies to non-numeric re sults) [facility] RBC 3.47 x1Mil/ul 4.20-5.40 Below low normal [facility] Hemoglobin 9.1 g/dl 12.0-16.0 Below low normal [facility] Hematocrit 29.8 % 37.0-47.0 Below low normal [facility] MCV 85.9 fL 81.0-99.0 Normal (applies to non-numeric resul ts) [facility] MCH 26.2 pg 27.0-31.0 Below low normal [facility] MCHC 30.5 g/dl 32.2-37.0 Below low normal [facility] RDW 16.8 % 11.5-14.5 Above high normal [facility] Platelet Count 228 x1000/ul 130-400 Normal (applies to non-numeric results) [facility] MPV 11.4 fL 9.4-12.4 Normal (applies to non-numeric resul ts) [facility] Neutrophils 54.6 % 40.0-74.0 Normal (applies to non-numeric resu lts) [facility] Lymphocytes 34.7 % 19.0-48.0 Normal (applies to non-numeric resu lts) [facility] Monocytes 8.7 % 3.4-9.0 Normal (applies to non-numeric resul ts) [facility] Eosinophils 1.1 % 0.0-7.0 Normal (applies to non-numeric resu lts) [facility] Basophils 0.6 % 0.0-2.0 Normal (applies to non-numeric resul ts) [facility] Immature Granulocytes 0.3 % 0.0-0.5 Normal (applies to non-nu meric results) [facility] Nucleated RBCs 0.00 % 0.00-0.20 Normal (applies to non-numeric r esults) [facility] Abs. Neutrophils 3.37 x1000/ul 1.92-8.31 Normal (applies to non-numeric results) [facility] Abs. Lymphocyte 2.15 x1000/ul 1.20-3.70 Normal (applies to non-n umeric results) [facility] Abs. Monocytes 0.54 x1000/ul 0.14-0.97 Normal (applies to non-nu meric results) [facility] Abs. Eosinophils 0.07 x1000/ul 0.00-0.76 Normal (applie s to non-numeric results) [facility] Abs. Basophils 0.04 x1000/ul 0.00-0.22 Normal (applies to non-n umeric results) [facility] Abs. Immature Gran. 0.02 x1000/ul 0.00-0.02 Normal (appl ies to non-numeric results) [facility] Abs. Nucleated RBCs 0.00 x1000/ul 0.00-0.02 Normal (appl ies to non-numeric results) [facility] The above 24 analytes were performed by [facility] [address], ,[place] [address] ID Date Data Source [id number] 03/23/2021 07:56:26 PM EDT [facility] Name Value Range Interpretation Code Description Data Arabella rce(s) Supporting Document(s) Nursing Note [facility] VDOECm4bNlNFZsKq58/AENqkMOGwd4BrLXucPXj9ILhwQRBtF0VpMJR9zB4mPLC2FFyCCyMkJuFaPSK6 lbm [file] 9GDQo= ID Date Data Source [id number] 03/23/2021 06:01:26 PM EDT [facility] Name Value Range Interpretation Code Description Data Arabella rce(s) Supporting Document(s) H&P [facility] VFUSSh5xWuVDGiJb57/XVRzuWKMab0DwDVcuOKj7WVzfHUCeE9UaTHA6aJ9dDIQ5PZoAJxUzPpDyDJE2 lbm [file] AgICAgICAgICAgICAgICAgICAgICAgICAgICAgICAgICAgICAgICAgICAgICAgICAgICAgICAgICAgIC GrGLLqCRVtIZGoHXKxRWFrDKXzIB1MWTFkUVPbEHVa ICAgICAgICAgICAgICAgICAgICAgICAgICAgICAgICAgICAgICAgICAgICAgICAgICAgICAgICAgICAg YQWcWGNyECDuPZCgXUTkIDAdPFMsOXEdELSaRDEqXD3ZFNChLNIsDCBrYMSeQAVySJQsTXTtPWGfCCQm ICAgICAgICAgICAgICAgICAgICAgICAgICAgICAgIC VzUVBeSETmSWVyNPCeRZFyXFWbOEJlBEGgNDYhITDaIZVzHFAhUHZuNS1JCCZqAIUaZXIsSVDwPHKwFT AgICAgICAgICAgICAgICAgICAgICAgICAgICAgICAgICAgICAgICAgICAgICAgICAgICAgICAgICAgIC LzMXKmJSVqNGZcYRJhFZPcRYAtWZOtEW6AGZPoXZMi ICAgICAgICAgICAgICAgICAgICAgICAgICAgICAgICAgICAgICAgICAgICAgICAgICAgICAgICAgICAg RMEeSHRsLPGbKVDkWCUhZRTcJIAbUHRaCXQyAQXgVSLuIF7HZATcIBCeONDsGIMaFWFqZBYyVFUnHDAs ICAgICAgICAgICAgICAgICAgICAgICAgICAgICAgIC LaAVFpLUGrWAVeIKFwYOOaDKCvBLNdZHZmKPIlEQNkOEKhPECeVILhXRNyCS8UTJYpFRMnSHXkWTNzFN AgICAgICAgICAgICAgICAgICAgICAgICAgICAgICAgICAgICAgICAgICAgICAgICAgICAgICAgICAgIC IjXVZyYDFvYTXiZJSqHMJrCDByEMOtQGKlIT9ZMTOw ICAgICAgICAgICAgICAgICAgICAgICAgICAgICAgICAgICAgICAgICAgICAgICAgICAgICAgICAgICAg QYKhHBStOAWkKHWbDNGzOBKkTBKgOPDpXCDzRRFkWSLfXUNsJN6WNWUtHXJaLKUaOSJnKTHmRVKrTAVx ICAgICAgICAgICAgICAgICAgICAgICAgICAgICAgIC SdWQBnMKNzDJFcKRRyKNGzBPHoXBXiLNNgFSNkJGFhYFPeQTIqRDKcDYTwOOTcTD4NPECbSSPrFEEbFK AgICAgICAgICAgICAgICAgICAgICAgICAgICAgICAgICAgICAgICAgICAgICAgICAgICAgICAgICAgIC MjBCEvWPPqZTRxPJCwZYIkFWIgYINcSDGiNWMaFC4X AF95oWBzm4F6EVOsCC1hcwo/Fd9CPNcipwGisNZxOR3FPeDqXB7gkl1XNoMyTZ0mvu4ZIOkPBkDdH2L0 cEUhRTUbJDFMKfYyT34wJPmhKa65RPezTYKeRrJtAHf0Ch4XCwByU0cdRDKeUlG3OYMdSoW9WTVmVcC9 JKSrDgYzOBPhKODyMX3QDYCuI696dkOdRC3PNa9IYd YeZI8gno4CLypnYRHgRdbQTqc1ELxkIM9ZoQNrtXJgXPAoKFNBWqOrV2mvb7EdVqemCCWPQYzqJT5Qx5 VudCAxDQo+Xb1EQZ1es3IcVMjvESYyFU4kjh1SNHlOXtLwV9YzwYkjIXnjWYLjkDITsXEkzmQFgOTwZW KJRMNgyJO3ZyX7PfImXjFgMMM1YPDbDK8xCIjrQV9N CJX8PTjrTMClNPRiH4dPQrWdEKrgZPAtdJvlYP4UDtWcU5TrywRsdAZoFpDhBHRWPv4+DQplbmRvYmoN SmC8HJTsr6ZcAWg8HN5OYXDjHAseUY8FMEJyuZ5fVNchQZ1NRmDyHTClCVMSScCqP23upVQoBZd6T2Rn YmVkZGVkRmlsZXMgPDwvTmFtZXMgWyBdDQogID4+ID 4+OZxcVB1BHDdblqDaHSVuCm4DRWMeWKCtCU7uWJUmWDKsJ3R4mVleBHCWUyAhW0jxrtnkFP8iKUMwR1 45mJzoykPoQEB1AWRzCf6DQOHpAXR3IXDvqVTqBbYkHTDHTLaeTA3HbGXkMZR0iY2vUOiwLWLoVEEpA5 mEVpSrxSkkPP80rOfdaxNxtCNeWLy+Wc9PFN1cu0Ik WSj3jlAqGCvpAZHrJRbdBYSnZBHgBFGzNUU4GCD0RFZGDhCfCEFqSSMeFJqvUJPuPFEaml1ZNOQjACHt MIL0HJXqOTOlKJVaLLebDSOsMRCbAJZrEDRpZERzUM2FDbHyKLCpUGXzTIuhTZFyTDCdbo3VPWViWCMx WbXvDzJkXTAcHIUkXFowRKFfXVCmKoC3DWSoIAPrKE 8UBfSkZAHbTKB2UstvQKGqKCFloi9UJTTlCZXoUHE8JIJpAMCmUNYjPAklTQPpCZV3LFPvBJCaCGWgAV 7SJsZeGMIjPXgxRhlpLPXjCZApin6KCUKdTVVqNWF2ECGuMRQlOHCsFLwmPUBeXXG6XYgfVQRsUWFjJD 8MJqYnJNExHHT3ZgHnBLWoPGTwuq6LBVPwDADwVTTm QvGdJECeCJFhHZdzCIUjOAAfMHGdKUMzPNDfEP8XBwUmQFAqYAT2OXBmWPPnRMZecc4NVQQhTLQyBFq3 YlFwEQYcZMIrNQqjXRAhBZNsNKQwONEhNMHcUR7EIjNlOTQmZnU1TCjjTGGrRVCvzd5EOFLqZBMaSDka HLUiVRWqKWErSIxwDBCcKAL3FQL9MZSbIHZfBU9GOi WlKSYyUaNuNsNeVOUsPFNuls2TAJSdSCNxRZHrCVOfNTQcDLLcFStjVOQvXOF9EgCsVHOoCCJlNH3BVz QgPBOrLiD3MWWyQOJxFDJkxn9NIXNeWLNwRgdqKcVzFSBoPJXvQBetICKlKVX9Xhl4XMIjUWDsKR5HDz NvBAWwJew9KRgcYGApQUKkzb1BAKQkJPUeKQPgBxQy BMZzAFHuPYhwVCGyFVY4VJn5OLCvXSOzSA9XEfDpALItFkfjKNunOAMzTYTknu0GRXPpPRAwJLUhGyTd GQIaJULrETkgGAEeVFXyGtc0CIVzSMXcEL9ZPuKzSEUiFfC8LkOxTZHgXKLqzd0ZRDAcZVFuRSJ3NCKp SBJhWARbTTljLNCyUIOcPOFvTFOxDYDiBA3UXcKhBJ XdWwH0UDWgZRHsKGNrto7JHTStPOXpFcR5BEWxWOSmYBZyLTisXNPiARChCny2ADVjGQYjRA1ALlCyUA clRQZXXhc3ORaoN1t5ZYT8PJ5BA2Vqz9PqGzynJUYYKMfdHA9blzEtUIQjSp3PB3sNTparHSJqCQnhRZ GfQDGrIjShAfA9OZPoXbR4YFX0XhhdNQ0rWZD9ZLQ6 YWGyA0KcNbHrUvRkKed1KvWaHECyAeSmIdA3LaOoNR1ZPe3ETqB9NRQ9bAAjOr3RCeJoSubKDcUfFJ3K DQo= ID Date Data Source [id number] 03/22/2021 08:28:35 PM EDT [facility] Name Value Range Interpretation Code Description Data Arabella rce(s) Supporting Document(s) Progress Note [facility] OSRJUk7nYeXIRhJn62/POXvrHDKlt7HxHMdqKYg8OOnuUKSiB8WzQES4oR4oDYH2ZAlFBxWpLkCwKMO9 lbm BaJyaNMyBlLKYpWevGNtQjYBcaXguldXNoKV2SeAA5ZPMqW42wQRYkRAKuB0KsZOT9ZDQ+Zk2BTNCvzB EjZV7EPgmG2Dtji+U6YH5fAX2VwLRgAU1mBZckGhpNm0Jchd2KFSNaafPCVXJqIxzZiBf586m7RGoaPi dgcwrrZO3uE2F+u9/+uQECFNy9xdNA64Xblg+vv4YR Z8M5+/orVk/z+Hpa/PUPPyy5F76jNRF/sh7vG3hww/bPw7H98t/rwQmTgWAnkROw/ujobBr/0Lu44iAu PIJIHdv16FLFZLwUYBhLk4q/Kzvvs+hwDN1xYW9m2YzoHKITqmfZ9sp3g8VjP1iiWAB8hzFxNzK4VYsa 71CZAhP8vzQlMaHa1GlHCXke7z031qiOQ+fvIRTUuB U1Lc+JpIM+5kpav8d9czGoekTlZW3pmathQr6a1EZWV6NxP2rXuJrzaibnaZ7FDO8wQmOQ1Cu2ntltxD ZgcK+e5xahjHy4G7eysxgUrQVdLr5h6jRU/Z1QPiYwFVUiOkFRL4aV6CkgVhUkjz/s/Vf1kbvFvafXp3 2qamDbTcLUk7sr/RLl++OGHbfIAgbhVifCOt8pb7ve sDeim5izb4Ni9tgEg1dgxl+z15odnn3D/UI4WwM5dINjL+4GQiSsDBb3BNT3JlK9QxMsTrWRuZ8p/ARNAUD [file] ID Date Data Source [id number] 03/22/2021 06:09:00 PM EDT [facility] TSYSORDER [id number] Name Value Range Interpretation Code Description Data Arabella rce(s) Supporting Document(s) URINE COLOR. [facility]AR [facility] GLUCOSE (UA) NEGATIVE mg/dL NEGATIVE [facility] URINE BILIRUBIN NEGATIVE NEGATIVE [facility] URINE KETONE 5(TRACE) mg/dL NEGATIVE H [facility] SPECIFIC GRAVITY,URINE 1.015 1.005-1.030 [facility] URINE BLOOD NEGATIVE NEGATIVE [facility] PH,URINE 7.5 5.0-9.0 [facility] URINE PROTEIN NEGATIVE mg/dL NEGATIVE [facility] jay URINE UROBILINOGEN NORMAL(0.2-1) mg/dL 0-1 [facility] URINE NITRATE NEGATIVE NEGATIVE [facility] URINE LEUKOCYTE ESTERASE NEGATIVE NEGATIVE [facility] ID Date Data Source [id number] 03/22/2021 05:30:00 PM EDT [facility] Name Value Range Interpretation Code Description Data Arabella rce(s) Supporting Document(s) COVID-19 NEGATIVE [facility] This lab was ordered by [facility] and reported by [facility]. ID Date Data Source [id number] 03/22/2021 06:06:00 PM EDT [facility] TSYSORDER [id number] Name Value Range Interpretation Code Description Data [...] are for the indentification of SARS-CoV-2 RNA. OrmSTIQ-MvV-2 RNA is generally detectable in respiratorysamples during the actue phase of infection. ID Date Data Source [id number] 03/22/2021 04:58:00 PM EDT [facility] DATE OF EXAMINATION: 03/22/2021 14:46 [...] Name Value Range Interpretation Code Description Data [facility] rce(s) Supporting Document(s) ID Date Data Source [id number] 03/22/2021 03:33:00 PM EDT [facility] TSYSORDER [id number] Name Value Range Interpretation Code Description Data [facility] rce(s) Supporting Document(s) LACTIC ACID 0.9 mmol/L 0.4-2.0 [facility] ID Date Data Source [id number] 03/22/2021 03:31:00 PM EDT [facility] TSYSORDER [id number] Name Value Range Interpretation Code Description Data [facility] rce(s) Supporting Document(s) GLUCOSE 88 mg/dL 74-106 [facility] BLOOD UREA NITROGEN 11 mg/dL 7-18 [facility] CREATININE 0.71 mg/dL 0.6-1.0 [facility] SODIUM 139 mmol/L 136-145 [facility] POTASSIUM 4.2 mmol/L 3.5-5.1 [facility] CHLORIDE 105 mmol/L 98-107 [facility] CO2 23 mmol/L 21-32 [facility] CALCIUM 9.2 mg/dL 8.5-10.1 [facility] ANION GAP 11.0 mmol/L 5-12 [facility] GLOMERULAR FILTRATION RATE >90 mL/min [facility] GFR IS CALCULATED IN mL/min/1.73m2 JUDITH L FUNCTION: >90MILDLY DECREASED: 60-89MILDY TO MODERATELY DECREASED: 45-59 MODERATELY TO SEVERELY DECREASED: 30-44SEVERELY DECREASED: 15-29RENAL FAILURE: <15 AST 20 U/L 15-37 [facility] ALT 20 U/L 12-78 [facility] ALKALINE PHOSPHATASE 70 U/L 46-116 [facility] pital TOTAL BILIRUBIN 1.0 mg/dL 0.2-1.0 [facility] TOTAL PROTEIN 7.6 g/dl 6.4-8.2 [facility] ALBUMIN 3.4 gm/dL 3.4-5.0 [facility] ID Date Data Source [id number] 03/22/2021 03:31:00 PM EDT [facility] TSYSORDER [id number] Name Value Range Interpretation Code Description [facility]s) LIPASE 117 U/L [id number] [facility] ID Date Data Source [id number] 03/22/2021 03:24:00 PM EDT [facility] al TSYSORDER [id number] Name Value Range Interpretation Code Description Data [facility] rce(s) Supporting Document(s) HCG,SERUM NEGATIVE NEGATIVE [facility] False negative results may occur when th e levels of hCG arebelow the sensitivity level of the test. If isstill suspected, a first morning urine specimen should becollected 48hrs later.This test has a sensitivity of 10mIU/mL in serum hgi95sQR/mL in urine. ID Date Data Source [id number] 03/22/2021 03:10:00 PM EDT [facility] TSYSORDER [id number] Name Value Range Interpretation Code Description Data [facility](s) Supporting Document(s) WHITE BLOOD COUNT 6.3 K/mm3 4.0-10.0 [facility] al RED BLOOD COUNT 3.90 M/mm3 4.00-5.50 L [facility] HEMOGLOBIN 10.2 gm/dL 12.0-16.0 L [facility] HEMATOCRIT 31.5 % 36.0-48.8 L [facility] MEAN CELL VOLUME 80.8 fl 80-96 [facility] MEAN CORPUSCULAR HEMOGLOBIN 26.2 pg 27.0-31.0 L [facility] MEAN CORPUSCULAR HGB CONC 32.4 g/dl 32.0-36.0 [facility] RED CELL DISTRIBUTION WIDTH 16.4 % 10.0-14.5 H [facility] PLATELET COUNT 146 K/mm3 172-450 L [facility] MEAN PLATELET VOLUME 12.1 fl 9.0-13.0 [facility] pital GRAN % 60.8 % 50-80.0 [facility] [...] [facility] ID Date Data Source [id number] 03/19/2021 08:43:00 AM EDT [facility] l DATE OF EXAMINATION: 03/19/2021 8:12 [...] Data Source CT ABD/PEL NO CONTRAST - [id number] 03/19/2021 12:00:00 AM EDT eC W1 ([facility]) Name Value Range Interpretation Code Description Data [facility] rce(s) Supporting Document(s) CT ABD/PEL NO CONTRAST - [id number] eCW1 ([facility]) ID Date Data Source [id number] 03/10/2021 05:49:00 PM EDT [facility]) Name Value Range Interpretation Code Description Data [facility](s) Supporting Document(s) Ferritin [Mass/volume] in Serum or Plasma 7 [facility] ([facility]) ID Date Data Source [id number] 03/10/2021 05:49:00 PM EDT [facility] ([facility]) Name Value Range Interpretation Code Description Data [facility](s) Supporting Document(s) Iron 38 [facility] Iron binding capacity [Mass/volume] in Serum or Plasma 429 [facility] ([facility]) Tibc % Saturation 9 [facility] ([facility]) ID Date Data Source [id number] 03/10/2021 05:49:00 PM EDT [facility]) Name Value Range Interpretation Code Description Data [facility](s) Supporting Document(s) CPK-MB 1.3 [facility] Thyroid Stimulating Hormone 27.184 0.360-3.740 [facility]) Free T4 0.4 [facility] ID Date Data Source [id number] 03/10/2021 05:49:00 PM EDT [facility]) Name Value Range Interpretation Code Description Data [facility] r[facility](s) Supporting Document(s) White Blood Count 6.9 [facility] Red Blood Count 4.05 [facility] Hematocrit 33.2 [facility] Hemoglobin 10.4 [facility]) Platelets 360 [facility] [place] ID Date Data Source [id number] 03/10/2021 05:49:00 PM EDT [facility]) Name Value Range Interpretation Code Description Data [facility] rce(s) Supporting Document(s) Troponin Laboratory test result 0-60.4 [facility] ([facility]) ID Date Data Source [id number] 03/10/2021 05:49:00 PM EDT [facility] [facility]) Name Value Range Interpretation Code Description Data Arabella rce(s) Supporting Document(s) Alanine aminotransferase [Enzymatic activity/volume] in Serum or Pl asma 20 MEDENT ([facility]) Albumin [Mass/volume] in Serum or Plasma 3.5 [facility] ([facility]) Calcium [Mass/volume] in Serum or Plasma 8.7 [facility] ([facility]) Carbon dioxide, total [Moles/volume] in Serum or Plasma 27 [facility] ([facility]) Chloride [Moles/volume] in Serum or Plasma 104 [facility] ([facility]) Potassium [Moles/volume] in Serum or Plasma 4.2 MED[facility] ([facility]) Protein [Mass/volume] in Serum or Plasma 7.8 [facility] ([facility]) Alkaline phosphatase [Enzymatic activity/volume] in Serum or Plasma 8 0 [facility] ([facility]) Sodium 138 [facility] ([facility] Aspartate aminotransferase [Enzymatic activity/volume] in Serum or Plasma 15 MEDENT ([facility]) Urea nitrogen [Mass/volume] in Serum or Plasma 11 [facility] ([facility]) Creatinine For GFR 0.85 [facility] ([facility]) Glucose 89 MEDENT ([facility]) ID Date Data Source [id number] 03/10/2021 04:36:00 PM EDT [facility] rce(s) Supporting Document(s) ID Date Data Source [id number] 03/10/2021 04:50:00 PM [facility] Name Value Range Interpretation Code Description Data Arabella rce(s) Supporting Document(s) FERRITIN 7 ng/mL 8-252 L [facility] ID Date Data Source [id number] 03/10/2021 04:50:00 PM [facility]T [facility] Name Value Range Interpretation Code Description Data Arabella rce(s) Supporting Document(s) IRON 38 ug/dL 50-170 L [facility] TIBC 429 ug/dL 250-450 [facility] % SATURATION 9 % 20-50 L [facility] ID Date Data Source [id number] 03/10/2021 04:50:00 PM EDT [facility] Name Value Range Interpretation Code Description Data Arabella rce(s) Supporting Document(s) TROPONIN-HIGH SENSITIVITY < 4.0 ng/L 0-60.4 [facility] ID Date Data Source [id number] 03/10/2021 04:50:00 PM EDT [facility] Name Value Range Interpretation Code Description Data Arabella rce(s) Supporting Document(s) CKMB 1.3 ng/ml 0.0-3.6 [facility] ID Date Data Source [id number] 03/10/2021 04:50:00 PM EDT [facility] Name Value Range Interpretation Code Description Data Arabella rce(s) Supporting Document(s) GLUCOSE 89 mg/dL 74-106 [facility] BLOOD UREA NITROGEN 11 mg/dL 7-18 [facility] CREATININE 0.85 mg/dL 0.6-1.0 [facility] SODIUM 138 mmol/L 136-145 [facility] POTASSIUM 4.2 mmol/L 3.5-5.1 [facility] CHLORIDE 104 mmol/L 98-107 [facility] CO2 27 mmol/L 21-32 [facility] CALCIUM 8.7 mg/dL 8.5-10.1 [facility] ANION GAP 7.0 mmol/L 5-12 [facility] GLOMERULAR FILTRATION RATE 75 mL/min [facility] GFR IS CALCULATED IN mL/min/1.73m2 JUDITH L FUNCTION: >90MILDLY DECREASED: 60-89MILDY TO MODERATELY DECREASED: 45-59 MODERATELY TO SEVERELY DECREASED: 30-44SEVERELY DECREASED: 15-29RENAL FAILURE: <15 AST 15 U/L 15-37 [facility] ALT 20 U/L 12-78 [facility] ALKALINE PHOSPHATASE 80 U/L 46-116 [facility] TOTAL BILIRUBIN 0.5 mg/dL 0.2-1.0 [facility] TOTAL PROTEIN 7.8 g/dl 6.4-8.2 [facility] ALBUMIN 3.5 gm/dL 3.4-5.0 [facility] ID Date Data Source [id number] 03/10/2021 04:50:00 PM T [facility] Name Value Range Interpretation Code Description Data Arabella rce(s) Supporting Document(s) FREE T4 0.4 ng/dL 0.76-1.46 L [facility] ID Date Data Source [id number] 03/10/2021 04:50:00 PM [facility] Name Value Range Interpretation Code Description Data Arabella rce(s) Supporting Document(s) TSH 27.184 uIU/mL 0.360-3.740 H [facility] ID Date Data Source [id number] 03/10/2021 04:22:00 PM [facility] Name Value Range Interpretation Code Description Data Arabella rce(s) Supporting Document(s) WHITE BLOOD COUNT 6.9 K/mm3 4.0-10.0 [facility] al RED BLOOD COUNT 4.05 M/mm3 4.00-5.50 [facility] HEMOGLOBIN 10.4 gm/dL 12.0-16.0 L [facility] HEMATOCRIT 33.2 % 36.0-48.8 L [facility] MEAN CELL VOLUME 82.0 fl 80-96 [facility] MEAN CORPUSCULAR HEMOGLOBIN 25.7 pg 27.0-31.0 L [facility] MEAN CORPUSCULAR HGB CONC 31.3 g/dl 32.0-36.0 L [facility] RED CELL DISTRIBUTION WIDTH 16.2 % 10.0-14.5 H [facility] PLATELET COUNT 360 K/mm3 172-450 [facility] MEAN PLATELET VOLUME 10.3 fl 9.0-13.0 [facility] pital GRAN % 55.3 % 50-80.0 [facility] [...] [facility] ID Date Data Source [id number] 03/10/2021 04:59:00 PM EDT [facility] FAX [phone] Name Value Range Interpretation Code Description Data Arabella rce(s) Supporting Document(s) LITHIUM < 0.20 mmol/L 0.6-1.20 [facility] ID Date Data Source FERRITIN 03/10/2021 12:00:00 AM EDT eCW1 ([facility]) Name Value Range Interpretation Code Description Data Arabella rce(s) Supporting Document(s) 7 8-252 FERRITIN eCW1 ([facility]) ID Date Data Source IRON PROFILE 03/10/2021 12:00:00 AM EDT eCW1 ([facility]) Name Value Range Interpretation Code Description Data Arabella rce(s) Supporting Document(s) 429 250-450 TIBC eCW1 ([facility]) 38 50-170 IRON eCW1 ([facility]) 9 20-50 % SATURATION eCW1 ([facility]) ID Date Data Source CBC [id number]/[id number] 03/10/2021 12:00:00 AM EDT eCW1 ([facility]) Name Value Range Interpretation Code Description Data Arabella rce(s) Supporting Document(s) 10.4 12.0-16.0 HEMOGLOBIN eCW1 ([facility]) 4.05 4.00-5.50 RED BLOOD COUNT eCW1 ([facility]) 6.9 4.0-10.0 WHITE BLOOD COUNT eCW1 ([facility]) 25.7 27.0-31.0 MEAN CORPUSCULAR HEMOGLOB IN eCW1 ([facility]) 82.0 80-96 MEAN CELL VOLUME eCW1 ([facility]) 33.2 36.0-48.8 HEMATOCRIT eCW1 ([facility]) 31.3 32.0-36.0 MEAN CORPUSCULAR HGB CONC eCW1 ([facility]) 16.2 10.0-14.5 RED CELL DISTRIBUTION WID TH eCW1 ([facility]) 360 172-450 PLATELET COUNT eCW1 ([facility]) 34.2 25.0-50.0 LYMPH % eCW1 ([facility]) 7.6 2.0-10.0 MONO % eCW1 ([facility]) 10.3 9.0-13.0 MEAN PLATELET VOLUME eCW1 ([facility]) 55.3 50-80.0 GRAN % eCW1 ([facility]) 0.6 0.0-2.0 BASO % eCW1 ([facility]) 3.8 2.0-8.00 GRAN # eCW1 ([facility]) 2.2 0-5.0 EOS % eCW1 ([facility]) 0.2 0.0-0.5 EOS # eCW1 ([facility]) 2.4 1.0-5.0 LYMPH # eCW1 ([facility]) 0.5 0.10-1.20 MONO # eCW1 ([facility]) 0.0 0.0-0.2 BASO # eCW1 ([facility]) ID Date Data Source CHEST 2 VIEWS 03/10/2021 12:00:00 AM EDT eCW1 ([facility]) Name Value Range Interpretation Code Description Data Arabella rce(s) Supporting Document(s) CHEST 2 VIEWS eCW1 ([facility]) ID Date Data Source FREE T4 03/10/2021 12:00:00 AM EDT eCW1 ([facility]) Name Value Range Interpretation Code Description Data Arabella rce(s) Supporting Document(s) 0.4 0.76-1.46 FREE T4 eCW1 ([facility]) ID Date Data Source TSH 03/10/2021 12:00:00 AM EDT eCW1 ([facility]) Name Value Range Interpretation Code Description Data Arabella rce(s) Supporting Document(s) 27.184 0.360-3.740 TSH eCW1 ([facility]) ID Date Data Source CKMB 03/10/2021 12:00:00 AM EDT eCW1 ([facility]) Name Value Range Interpretation Code Description Data Arabella rce(s) Supporting Document(s) 1.3 0.0-3.6 [facility] eCW1 ([facility]) ID Date Data Source [id number] 01/30/2021 08:06:00 AM EDT [facility] Name Value Range Interpretation Code Description Data Arabella rce(s) Supporting Document(s) Folate (Folic Acid), Serum 8.6 ng/mL >3.0 [facility] A serum folate concentration of less simi n 3.1 ng/mL isconsidered to represent clinical deficiency. ID Date Data Source [id number] 01/30/2021 08:06:00 AM EDT [facility] Name Value Range Interpretation Code Description Data Arabella rce(s) Supporting Document(s) Vitamin B12 351 pg/mL [id number] [facility] ID Date Data Source [id number] 01/30/2021 08:06:00 AM EDT [facility] Name Value Range Interpretation Code Description Data Arabella rce(s) Supporting Document(s) FOLATE (FOLIC ACID), SERUM 8.6 ng/mL >3.0 [facility] A serum folate concentration of less simi n 3.1 ng/mL isconsidered to represent clinical deficiency. ID Date Data Source [id number] 01/30/2021 08:06:00 AM EDT [facility] Name Value Range Interpretation Code Description Data Arabella rce(s) Supporting Document(s) VITAMIN B12 351 pg/mL [id number] [facility] Performed at: RN - [facility] [id number] [id number] Director: Sharmaine Siddiqui MD, Phone: [phone] ID Date Data Source [id number] 01/29/2021 03:33:00 PM EDT [facility] Name Value Range Interpretation Code Description Data Arabella rce(s) Supporting Document(s) IRON 31 ug/dL 50-170 L [facility] TIBC 462 ug/dL 250-450 H [facility] % SATURATION 7 % 20-50 [facility] ID Date Data Source [id number] 01/15/2021 01:59:00 PM EDT [facility] [...] rce(s) Supporting Document(s) ID Date Data Source [id number] 01/15/2021 12:37:00 PM EDT [facility] DATE OF EXAMINATION: 01/15/2021 11:42 [...] rce(s) Supporting Document(s) ID Date Data Source [id number] 01/15/2021 11:52:00 AM EDT [facility] Name Value Range Interpretation Code Description Data Arabella rce(s) Supporting Document(s) WHITE BLOOD COUNT 6.3 K/mm3 4.0-10.0 [facility] al RED BLOOD COUNT 3.71 M/mm3 4.00-5.50 L [facility] HEMOGLOBIN 9.7 gm/dL 12.0-16.0 [facility] HEMATOCRIT 30.5 % 36.0-48.8 [facility] MEAN CELL VOLUME 82.2 fl 80-96 [facility] MEAN CORPUSCULAR HEMOGLOBIN 26.1 pg 27.0-31.0 L [facility] MEAN CORPUSCULAR HGB CONC 31.8 g/dl 32.0-36.0 L [facility] RED CELL DISTRIBUTION WIDTH 13.7 % 10.0-14.5 [facility] PLATELET COUNT 255 K/mm3 172-450 [facility] MEAN PLATELET VOLUME 10.9 fl 9.0-13.0 [facility] pital GRAN % 53.2 % 50-80.0 [facility] IG% 0.0 % 0.0-0.2 [facility] LYMPH % 35.0 % 25.0-50.0 [facility] MONO % 9.1 % 2.0-10.0 [facility] EOS % 2.1 % 0-5.0 [facility] [...] [facility] ID Date Data Source [id number] 01/15/2021 12:35:00 PM [facility] l Name Value Range Interpretation Code Description Data Arabella rce(s) Supporting Document(s) ERYTHROCYTE SEDIMENTATION RATE 70 mm/hr 0-20 H [facility] ID Date Data Source [id number] 01/15/2021 12:10:00 PM [facility] l Name Value Range Interpretation Code Description Data Arabella rce(s) Supporting Document(s) FREE T4 0.5 ng/dL 0.76-1.46 L [facility] ID Date Data Source [id number] 01/15/2021 12:10:00 PM [facility] l Name Value Range Interpretation Code Description Data Arabella rce(s) Supporting Document(s) TSH 19.669 uIU/mL 0.360-3.740 H [facility] ID Date Data Source [id number] 01/15/2021 11:59:00 AM EDT [facility] Name Value Range Interpretation Code Description Data Arabella rce(s) Supporting Document(s) GLUCOSE 72 mg/dL 74-106 [facility] BLOOD UREA NITROGEN 14 mg/dL 7-18 [facility] CREATININE 0.83 mg/dL 0.6-1.0 [facility] SODIUM 138 mmol/L 136-145 [facility] POTASSIUM 4.5 mmol/L 3.5-5.1 [facility] CHLORIDE 104 mmol/L 98-107 [facility] CO2 27 mmol/L 21-32 [facility] CALCIUM 8.8 mg/dL 8.5-10.1 [facility] ANION GAP 7.0 mmol/L 5-12 [facility] GLOMERULAR FILTRATION RATE 77 mL/min [facility] GFR IS CALCULATED IN mL/min/1.73m2 JUDITH L FUNCTION: >90MILDLY DECREASED: 60-89MILDY TO MODERATELY DECREASED: 45-59 MODERATELY TO SEVERELY DECREASED: 30-44SEVERELY DECREASED: 15-29RENAL FAILURE: <15 AST 16 U/L 15-37 [facility] ALT 23 U/L 12-78 [facility] ALKALINE PHOSPHATASE 76 U/L 46-116 [facility] pital TOTAL BILIRUBIN 0.5 mg/dL 0.2-1.0 [facility] TOTAL PROTEIN 6.9 g/dl 6.4-8.2 [facility] ALBUMIN 3.5 gm/dL 3.4-5.0 [facility] ID Date Data Source Urinalysis, Routine 01/15/2021 12:00:00 AM EDT eCW1 ([facility]) Name Value Range Interpretation Code Description Data Arabella [facility](s) Supporting Document(s) Color of Urine Ellen Urine-Color eCW1 ([facility]) Microscopic Examination eCW1 ( [facility]) Specific gravity of Urine 1.025 Specific G ravity eCW1 ([facility]) Appearance of Urine Clear Appearance eCW1 ([facility]) pH of Urine by Test strip 5 pH eCW1 ([facility]) Glucose [Presence] in Urine NEG Glucose eCW1 ([facility]) Protein [Presence] in Urine by Test strip NEG Protein eCW1 ([facility]) Bilirubin.total [Presence] in Urine by Test strip NEG Bilirubin eCW1 ([facility]) Hemoglobin [Presence] in Urine by Test strip NEG Occult Blood eCW1 ([facility]) Nitrite [Presence] in Urine by Test strip NEG Nitrite, Urine eCW1 ([facility]) Urobilinogen [Mass/volume] in Urine by Test strip NEG Urobilinogen,Semi-Qn eCW1 ([facility]) Ketones [Presence] in Urine by Test strip NEG Ketones eCW1 ([facility]) Urinalysis Gross Exam eCW1 ([facility]) Leukocyte esterase [Presence] in Urine by Test strip NEG WBC Esterase eCW1 ([facility]) Procedure Social History Code Duration Value Status Description Data Source(s ) Smoking 05/05/2021 12:00:00 AM EDT Current Smoker completed Curre nt Smoker eCW1 ([facility]) Smoking 05/05/2021 12:00:00 AM EDT Current Smoker completed Curre nt Smoker eCW1 ([facility]) Smoking 05/05/2021 12:00:00 AM EDT Current Smoker completed Curre nt Smoker eCW1 ([facility]) Smoking 05/05/2021 12:00:00 AM EDT Current Smoker completed Curre nt Smoker eCW1 ([facility]) Smoking 05/05/2021 12:00:00 AM EDT Current Smoker completed Curre nt Smoker eCW1 ([facility]) Alcohol intake 05/02/2021 12:00:00 AM EDT Ex-drinker (finding) comp leted Ex- drinker (finding) [facility] Tobacco use and exposure 05/02/2021 12:00:00 AM EDT Never used co mpleted Never used [facility] Smoking 05/02/2021 12:00:00 AM EDT Former smoker completed Former smoker [facility] Alcohol intake 04/25/2021 12:00:00 AM EDT Ex-drinker (finding) comp leted Ex- drinker (finding) [facility] Smoking 03/10/2021 12:00:00 AM EDT Current Smoker completed Curre nt Smoker eCW1 ([facility]) Smoking 03/10/2021 12:00:00 AM EDT Current Smoker completed Curre nt Smoker eCW1 ([facility]) Smoking 03/10/2021 12:00:00 AM EDT Current Smoker completed Curre nt Smoker eCW1 ([facility]) Smoking 03/10/2021 12:00:00 AM EDT Current Smoker completed Curre nt Smoker eCW1 ([facility]) Smoking 03/10/2021 12:00:00 AM EDT Current Smoker completed Curre nt Smoker eCW1 ([facility]) Smoking 03/10/2021 12:00:00 AM EDT Current Smoker completed Curre nt Smoker eCW1 ([facility]) Smoking 02/21/2021 12:00:00 AM EDT Current Smoker completed Curre nt Smoker eCW1 ([facility]) Smoking 02/13/2021 12:00:00 AM EDT Current Smoker completed Curre nt Smoker eCW1 ([facility]) Smoking 01/31/2021 12:00:00 AM EDT Current Smoker completed Curre nt Smoker eCW1 ([facility]) Smoking 01/29/2021 12:00:00 AM EDT Current Smoker completed Curre nt Smoker eCW1 ([facility]) Smoking 01/29/2021 12:00:00 AM EDT Current Smoker completed Curre nt Smoker eCW1 ([facility]) Smoking 01/29/2021 12:00:00 AM EDT Current Smoker completed Curre nt Smoker eCW1 ([facility]) Smoking 01/15/2021 12:00:00 AM EDT Current Smoker completed Curre nt Smoker eCW1 ([facility]) Smoking 01/15/2021 12:00:00 AM EDT Current Smoker completed Curre nt Smoker eCW1 ([facility]) Smoking 01/15/2021 12:00:00 AM EDT Current Smoker completed Curre nt Smoker eCW1 ([facility]) Smoking 01/15/2021 12:00:00 AM EDT Current Smoker completed Curre nt Smoker eCW1 ([facility]) Smoking 01/15/2021 12:00:00 AM EDT Current Smoker completed Curre nt Smoker eCW1 ([facility]) 03/20/2021 12:00:00 AM EDT Smoker completed Smoker [facility] 03/20/2021 12:00:00 AM EDT Current smoker completed Curre nt smoker [facility] Vital Signs ID Date Data Source UNK Name Value Range Interpretation Code Description Data Source(s) Body temperature 36.22 Jayde 36.22 Jayde [facility] Respiratory rate 18 /min 18 /min [facility] Oxygen saturation in Arterial blood by Pulse oximetry 99 % 99 % [facility] Systolic blood pressure 107 mm[Hg] 107 mm[Hg] [facility] Diastolic blood pressure 63 mm[Hg] 63 mm[Hg] [facility] Heart rate 50 /min 50 /min [facility] Body mass index (BMI) [Ratio] 25.47 kg/m2 25.47 kg/m2 [facility] Body height 174 cm 174 cm [facility] Body weight 77.111 kg 77.111 kg [facility] Systolic blood pressure 104 mm[Hg] 104 mm[Hg] [facility] Diastolic blood pressure 70 mm[Hg] 70 mm[Hg] [facility] Heart rate 46 /min 46 /min [facility] Body temperature 36.17 Jayde 36.17 Jayde [facility] Respiratory rate 16 /min 16 /min [facility] Oxygen saturation in Arterial blood by Pulse oximetry 99 % 99 % [facility] Body height 172 cm 172 cm [facility] Body weight 80.287 kg 80.287 kg [facility] Body mass index (BMI) [Ratio] 27.14 kg/m2 27.14 kg/m2 [facility] Systolic blood pressure 92 mm[Hg] 92 mm[Hg] [facility] Diastolic blood pressure 59 mm[Hg] 59 mm[Hg] [facility] Heart rate 64 /min 64 /min [facility] Respiratory rate 16 /min 16 /min [facility] Oxygen saturation in Arterial blood by Pulse oximetry 97 % 97 % [facility] Body temperature 36.78 Jayde 36.78 Jayde [facility] Body height 172 cm 172 cm [facility] Body weight 82 kg 82 kg [facility] Body mass index (BMI) [Ratio] 27.72 kg/m2 27.72 kg/m2 [facility] Diastolic blood pressure 59 mm[Hg] 59 mm[Hg] DAVID ([facility]) Body height 69 [in_i] 69 [in_i] DAVID ([facility]) Body mass index (BMI) [Ratio] 26.5 kg/m2 26.5 k g/m2 DAVID ([facility]) Systolic blood pressure 97 mm[Hg] 97 mm[Hg] A THENA ([facility]) Body weight 179.2 [lb_av] 179.2 [lb_av] DAVID ([facility]) Diastolic blood pressure 59 mm[Hg] 59 mm[Hg] DAVID ([facility]) Body height 69 [in_i] 69 [in_i] DAVID ([facility]) Body mass index (BMI) [Ratio] 26.5 kg/m2 26.5 k g/m2 DAVID ([facility]) Systolic blood pressure 97 mm[Hg] 97 mm[Hg] A THENA ([facility]) Body weight 179.2 [lb_av] 179.2 [lb_av] DAVID ([facility]) Body height 68 [in_i] 68 [in_i] eCW1 ([facility]) Body weight 179.6 [lb_av] 179.6 [lb_av] eCW1 ([facility]) Body mass index (BMI) [Ratio] 27.31 kg/m2 27.31 kg/m2 eCW1 ([facility]) Body temperature 98.8 [degF] 98.8 [degF] eCW1 ( [facility]) Heart rate 86 /min 86 /min eCW1 ([facility]) Respiratory rate 18 /min 18 /min eCW1 ([facility]) Oxygen saturation in Arterial blood by Pulse oximetry 100 % 100 % eCW1 ([facility]) Body height 68 [in_i] 68 [in_i] eCW1 ([facility]) Body weight 180.6 [lb_av] 180.6 [lb_av] eCW1 ([facility]) Body mass index (BMI) [Ratio] 27.46 kg/m2 27.46 kg/m2 eCW1 ([facility]) Body temperature 98.2 [degF] 98.2 [degF] eCW1 ( [facility]) Heart rate 92 /min 92 /min eCW1 ([facility]) Respiratory rate 18 /min 18 /min eCW1 ([facility]) Oxygen saturation in Arterial blood by Pulse oximetry 100 % 100 % eCW1 ([facility]) Body height 68 [in_i] 68 [in_i] eCW1 ([facility]) Body weight 182.4 [lb_av] 182.4 [lb_av] eCW1 ([facility]) Body mass index (BMI) [Ratio] 27.73 kg/m2 27.73 kg/m2 eCW1 ([facility]) Body temperature 98.4 [degF] 98.4 [degF] eCW1 ( [facility]) Heart rate 78 /min 78 /min eCW1 ([facility]) Respiratory rate 18 /min 18 /min [facility] [facility]) Oxygen saturation in Arterial blood by Pulse oximetry 98 % 98 % eCW1 ([facility]) ID Date Data Source [id number] 03/22/2021 08:28:35 PM T [facility] Hospital Name Value Range Interpretation Code Description Data Source(s) TRANSFER FROM [facility] Ups [facility] Patient Treatment Plan of Care Planned Activity Planned Date Details Description Data Source (s) Docusate Sodium 100 MG 06/24/2021 12:00:00 AM EST NETSMART ([facility]) oxyCODONE-Acetaminophen 5-325 MG 06/23/2021 12:00:00 AM EST [facility] ([facility]) Acetaminophen Extra Strength 500 MG 06/23/2021 12:00:00 AM EST [facility] ([facility]) Venlafaxine HCl ER 150 MG 06/23/2021 12:00:00 AM EST NETSMART ([facility]) TiZANidine HCl 4 MG 06/23/2021 12:00:00 AM EST [facility]SMART ([facility]) Carafate 1 GM 06/23/2021 12:00:00 AM EST NETSMART ([facility]) Prazosin HCl 1 MG 06/23/2021 12:00:00 AM EST NETSMART ([facility]) Rexulti 1 MG 06/23/2021 12:00:00 AM EST N ETSMART ([facility]) Protonix 40 MG 06/23/2021 12:00:00 AM EST NETSMART ([facility]) Multivitamin Adults 06/23/2021 12:00:00 AM EST NETSMART ([facility]) Mirtazapine 15 MG 06/23/2021 12:00:00 AM EST NETSMART ([facility]) Melatonin 10 MG 06/23/2021 12:00:00 AM EST NETSMART ([facility]) Levothyroxine Sodium 125 MCG 06/23/2021 12:00:00 AM EST NETSMART ([facility]) lamoTRIgine 25 MG 06/23/2021 12:00:00 AM EST NETSMART ([facility]) lamotrigine 25 MG Oral Tablet 05/21/2021 12:00:00 AM EDT eCW1 ([facility]) lamotrigine 25 MG Oral Tablet 05/21/2021 12:00:00 AM EDT eCW1 ([facility]) Acetaminophen 325 MG / Hydrocodone Bitartrate 7.5 MG O ral Tablet 05/04/2021 12:00:00 AM EDT [facility] Misoprostol 0.2 MG Oral Tablet 05/04/2021 12:00:00 AM EDT [facility] Methylcellulose 500 MG Oral Tablet 03/27/2021 12:00:00 AM EDT [facility] Lactobacillus rhamnosus GG [id number] UNT Oral Capsul e 03/27/2021 12:00:00 AM EDT [facility] brexpiprazole 2 MG Oral Tablet [Rexulti] 03/19/2021 12:00:00 AM EDT eCW1 ([facility]) brexpiprazole 2 MG Oral Tablet [Rexulti] 03/19/2021 12:00:00 AM EDT eCW1 ([facility]) brexpiprazole 2 MG Oral Tablet [Rexulti] 03/19/2021 12:00:00 AM EDT eCW1 ([facility]) brexpiprazole 2 MG Oral Tablet [Rexulti] 03/19/2021 12:00:00 AM EDT eCW1 ([facility]) brexpiprazole 2 MG Oral Tablet [Rexulti] 03/19/2021 12:00:00 AM EDT eCW1 ([facility]) brexpiprazole 1 MG Oral Tablet [Rexulti] 03/19/2021 12:00:00 AM EDT eCW1 ([facility]) brexpiprazole 1 MG Oral Tablet [Rexulti] 03/19/2021 12:00:00 AM EDT eCW1 ([facility]) brexpiprazole 1 MG Oral Tablet [Rexulti] 03/19/2021 12:00:00 AM EDT eCW1 ([facility]) brexpiprazole 1 MG Oral Tablet [Rexulti] 03/19/2021 12:00:00 AM EDT eCW1 ([facility]) Prazosin 1 MG Oral Capsule 02/13/2021 12:00:00 AM EDT eCW1 ([facility]) Prazosin 1 MG Oral Capsule 02/13/2021 12:00:00 AM EDT eCW1 ([facility]) Idalou Carbonate 300 MG Oral Capsule 02/13/2021 12:00:00 AM EDT eCW1 ([facility]) Prazosin 1 MG Oral Capsule 02/13/2021 12:00:00 AM EDT eCW1 ([facility]) Levothyroxine Sodium 0.025 MG Oral Tablet 01/29/2021 12:00:00 AM ED T eCW1 ([facility]) 0.3 ML Epinephrine 1 MG/ML Auto-Injector [Epipen] 01/29/2021 12: 00:00 AM EDT eCW1 ([facility]) Levothyroxine Sodium 0.025 MG Oral Tablet 01/29/2021 12:00:00 AM ED T eCW1 ([facility]) 0.3 ML Epinephrine 1 MG/ML Auto-Injector [Epipen] 01/29/2021 12: 00:00 AM EDT eCW1 ([facility]) Levothyroxine Sodium 0.025 MG Oral Tablet 01/29/2021 12:00:00 AM ED T eCW1 ([facility]) 0.3 ML Epinephrine 1 MG/ML Auto-Injector [Epipen] 01/29/2021 12: 00:00 [facility] Misoprostol 0.2 MG Oral Tablet 08/04/2019 12:00:00 AM [facility] ferrous sulfate 325 MG Oral Tablet [facility] gabapentin 600 MG Oral Tablet [facility] quetiapine 25 MG Oral Tablet [Seroquel] DAVID ([facility]) Mirtazapine 15 MG Oral Tablet [Remeron] DAVID ([facility]) OneTouch Delica Lancets ATHE NA ([facility]) One Touch II Test strips ATH TENZIN ([facility]) Idalou Carbonate 300 MG Oral Capsule DAVID ([facility]) Hair, Skin and Nails Advanced DAVID ([facility]) Biotin 10 MG Oral Tablet ATH TENZIN ([facility]) quetiapine 25 MG Oral Tablet [Seroquel] DAVID ([facility]) Mirtazapine 15 MG Oral Tablet [Remeron] DAVID ([facility]) OneTouch Delica Lancets ATHE NA ([facility]) One Touch II Test strips ATH TENZIN ([facility]) Idalou Carbonate 300 MG Oral Capsule DAVID ([facility]) Hair, Skin and Nails Advanced DAVID ([facility]) Biotin 10 MG Oral Tablet ATH TENZIN ([facility])
[2021-07-02] MEDS ORDERED: KETOROLAC 30 MG/ML 1ML VIAL IV ONE (00:35)
[2021-07-02 01:19] LABS: BASO # 0.1 10^3/uL (0.0-0.2); BASO % 1.4 % (0.0-1.0); EOS # 0.5 10^3/uL (0.0-0.5); EOS % 4.5 % (0.0-3.0); HEMATOCRIT 34.8 % (36.0-47.0); LYMPH # 3.6 10^3/uL (1.5-5.0); LYMPH % 36.5 % (24.0-44.0); MEAN CORPUSCULAR HEMOGLOBIN 27.5 pg (27.0-33.0); MEAN CORPUSCULAR HGB CONC 31.6 g/dl (32.0-36.5); MONO # 0.9 10^3/uL (0.0-0.8); MONO % 9.2 % (2.0-8.0); NEUTROPHILS # 4.8 10^3/uL (1.5-8.5); NEUTROPHILS % 47.9 % (36.0-66.0); PLATELET COUNT, AUTOMATED 481 10^3/uL (150-450); WHITE BLOOD COUNT 9.9 10^3/uL (4.0-10.0)
[2021-07-02 01:46] LABS: ALBUMIN 3.6 GM/DL (3.2-5.2); ALT/SGPT 24 U/L (12-78); BILIRUBIN,DIRECT 0.2 MG/DL (0.0-0.2); BILIRUBIN,TOTAL 0.7 MG/DL (0.2-1.0); C REACTIVE PROTEIN QUANTITATIV < 0.30 MG/DL (0.00-0.30); LIPASE 232 U/L (73-393); TOTAL PROTEIN 8.1 GM/DL (6.4-8.2)
[2021-07-02] MEDS ORDERED: ISOVUE-370 76% 100ML VIAL As Ordered ONE (02:51)
[2021-07-02] MEDS ORDERED: ONDANSETRON 4MG/2ML VIAL IV ONE (03:35)
[2021-07-02] MEDS ORDERED: MORPHINE 4 MG/ML 1ML VIAL/SYRINGE (J2270) IV PRN (03:35)
--- NOTE | 2021-07-02 04:53 | REPVR ---
PROCEDURE INFORMATION: Exam: CT Abdomen And Pelvis With Contrast Exam date and time: 07/02/2021 3:16 AM Age: 40 years old Clinical indication: Other: Luq pain, peg tube placed 1 month ago TECHNIQUE: Imaging protocol: Computed tomography of the abdomen and pelvis with contrast. Radiation optimization: All CT scans at this facility use at least one of these dose optimization techniques: automated exposure control; mA and/or kV adjustment per patient size (includes targeted exams where dose is matched to clinical indication); or iterative reconstruction. Contrast material: ISOVUE 370; Contrast volume: 100 ml; Contrast route: INTRAVENOUS (IV); COMPARISON: CT ABD/PEL W/IV CONTRAST ONLY 06/20/2021 8:50 PM FINDINGS: Tubes, catheters and devices: Status post pedicular fusion from L3-S1 with interspace device and anterior retainer set L5-S1. Liver: The liver attenuation is 77 Hounsfield units and the spleen is 118 Hounsfield units. Gallbladder and bile ducts: Status post cholecystectomy. Pancreas: Normal. No ductal dilation. Spleen: See "Liver" finding. Adrenal glands: Normal. No mass. Kidneys and ureters: Normal. No hydronephrosis. Stomach and bowel: Status post gastric stapling. Mild stool throughout much of the colon. Appendix: Status post appendectomy. Intraperitoneal space: Unremarkable. No free air. No significant fluid collection. Vasculature: Unremarkable. No abdominal aortic aneurysm. Lymph nodes: Unremarkable. No enlarged lymph nodes. Urinary bladder: Unremarkable as visualized. Reproductive: Status post hysterectomy. Decreased cystic change of an ovary adjacent to the vaginal cuff since the prior study. Bones/joints: Unremarkable. No acute fracture. Soft tissues: Small fat filled epigastric ventral wall hernia. IMPRESSION: 1. There has been prior cholecystectomy, appendectomy and hysterectomy. 2. Status post gastric stapling. 3. Mild hepatic steatosis. 4. Decreased size and cystic change of an ovary adjacent to vaginal cuff since 06/20/2021. Electronically signed by: Jam Medina On 07/02/2021 04:52:15 AM
[2021-07-02 05:45] VITALS: BP 100/51
--- NOTE | 2021-07-03 09:43 | ED PDOC ---
Post-Departure Follow-Up radiology report faxed to [facility] Ferguson Sarah MD Jul 03, 2021 09:43
== END 2021-07-02 06:06 | disposition home or self-care (01) ==
LOC: M ED 17:04
DX: R10.9 Unspecified abdominal pain (principal); Z93.1 Gastrostomy status; K76.0 Fatty (change of) liver, not elsewhere classified; Z98.84 Bariatric surgery status; Z98.51 Tubal ligation status; Z90.49 Acquired absence of other specified parts of digestive tract; F19.10 Other psychoactive substance abuse, uncomplicated; Z88.8 Allergy status to other drugs, medicaments and biological substances; Z91.048 Other nonmedicinal substance allergy status; Z79.899 Other long term (current) drug therapy
CPT/HCPCS: 74177; 80047; 80076; 83605; 83690; 85025; 86140; 93041; 99285; J1885; J2270; J2405; Q9967

== ENCOUNTER 2021-11-12 15:43 | Emergency (ER) | payer MEDICARE, MEDICAID ==
[~2021-11-12] VITALS: Ht 172.7 cm; Wt 90.9 kg
[2021-11-12 15:57] VITALS: BP 180/96
[2021-11-12] MEDS ORDERED: RISP-11 (15:57)
[2021-11-12] MEDS ORDERED: LATU40TA2 (15:57)
[2021-11-12] MEDS ORDERED: LORazepam 1 MG TAB PO STA (16:44)
[2021-11-12 17:14] LABS: HEMATOCRIT 34.5 % (36.0-47.0); HEMOGLOBIN 11.4 g/dl (12.0-15.5); MEAN CORPUSCULAR HEMOGLOBIN 28.1 pg (27.0-33.0); MEAN CORPUSCULAR VOLUME 85.2 fl (80.0-96.0); PLATELET COUNT, AUTOMATED 337 10^3/uL (150-450); RED BLOOD COUNT 4.05 10^6/uL (4.00-5.40); WHITE BLOOD COUNT 9.7 10^3/uL (4.0-10.0)
[2021-11-12 17:32] LABS: AMPHETAMINES LEVEL URINE POSITIVE (NEGATIVE); BARBITURATES URINE NEGATIVE (NEGATIVE); BENZODIAZEPINES URINE NEGATIVE (NEGATIVE); CANNABINOIDS URINE NEGATIVE (NEGATIVE); COCAINE METABOLITE URINE NEGATIVE (NEGATIVE); METHADONE URINE NEGATIVE (NEGATIVE); OPIATES URINE NEGATIVE (NEGATIVE); PHENCYCLIDINE URINE NEGATIVE (NEGATIVE)
[2021-11-12 17:40] LABS: HCG, SERUM QUALITATIVE NEGATIVE (NEGATIVE)
[2021-11-12 17:50] LABS: ACETAMINOPHEN LEVEL < 2.0 UG/ML (10.0-30.0); ALBUMIN 3.9 GM/DL (3.2-5.2); ALT/SGPT 22 U/L (12-78); BILIRUBIN,DIRECT 0.2 MG/DL (0.0-0.2); BLOOD UREA NITROGEN 16 MG/DL (7-18); CALCIUM LEVEL 9.5 MG/DL (8.5-10.1); CARBON DIOXIDE LEVEL 24 MEQ/L (21-32); CHLORIDE LEVEL 109 MEQ/L (98-107); CREATININE FOR GFR 0.88 MG/DL (0.55-1.30); ETHYL ALCOHOL (ETHANOL) < 0.003 % (0.000-0.010); GLOMERULAR FILTRATION RATE > 60.0 (>60); GLUCOSE, FASTING 84 MG/DL (70-100); POTASSIUM SERUM 3.8 MEQ/L (3.5-5.1); SALICYLATE LEVEL < 1.7 MG/DL (5.0-30.0); SODIUM LEVEL 140 MEQ/L (136-145); TOTAL PROTEIN 7.5 GM/DL (6.4-8.2)
[2021-11-12] MEDS ORDERED: ATIV1TAB7 PO (19:02)
== END 2021-11-12 19:22 | disposition home or self-care (01) ==
LOC: EDBD 15:43 → M ED 15:43
DX: F41.1 Generalized anxiety disorder (principal); J45.909 Unspecified asthma, uncomplicated; F31.9 Bipolar disorder, unspecified; F43.10 Post-traumatic stress disorder, unspecified; F20.9 Schizophrenia, unspecified; Z87.19 Personal history of other diseases of the digestive system; Z79.899 Other long term (current) drug therapy; Z88.8 Allergy status to other drugs, medicaments and biological substances; Z91.030 Bee allergy status; Z91.048 Other nonmedicinal substance allergy status; F17.210 Nicotine dependence, cigarettes, uncomplicated

== ENCOUNTER 2021-11-26 21:40 | Emergency (ER) | payer MEDICARE, MEDICAID ==
[~2021-11-26] VITALS: Ht 172.7 cm; Wt 90.9 kg
[2021-11-26 21:40] VITALS: BP 140/86
[~2021-11-26 21:40] MED LIST changes: +ATIV1TAB7 PO; +LATU40TA2; +RISP-11
[2021-11-26 23:00] LABS: RSV AMPLIFICATION NEGATIVE (NEGATIVE)
[2021-11-26] MEDS ORDERED: METOCLOPRAMIDE INJ 10MG/2ML VIAL (J2765 PER 1) IV ONE (23:20)
[2021-11-26] MEDS ORDERED: KETOROLAC 30 MG/ML 1ML VIAL IV ONE (23:20)
[2021-11-26] MEDS ORDERED: NAPR-885 PO (23:51)
== END 2021-11-27 00:14 | disposition home or self-care (01) ==
LOC: M ED 21:40
DX: J06.9 Acute upper respiratory infection, unspecified (principal); R51.9 Headache, unspecified; F17.200 Nicotine dependence, unspecified, uncomplicated; Z98.84 Bariatric surgery status; Z91.030 Bee allergy status; Z91.09 Other allergy status, other than to drugs and biological substances

== ENCOUNTER 2022-01-06 16:44 | Inpatient (IN) | payer MEDICARE, MEDICAID ==
[~2022-01-06] VITALS: Ht 174 cm; Wt 93.3 kg
[~2022-01-06 16:44] MED LIST changes: -LATU40TA2; +LATU40TA2 PO; +NAPR-885 PO; -RISP-11; +RISP-11 PO
[2022-01-06 18:37] LABS: HEMATOCRIT 35.8 % (36.0-47.0); HEMOGLOBIN 11.7 g/dl (12.0-15.5); MEAN CORPUSCULAR HEMOGLOBIN 29.6 pg (27.0-33.0); MEAN CORPUSCULAR HGB CONC 32.7 g/dl (32.0-36.5); MEAN CORPUSCULAR VOLUME 90.6 fl (80.0-96.0); PLATELET COUNT, AUTOMATED 270 10^3/uL (150-450); RED BLOOD COUNT 3.95 10^6/uL (4.00-5.40); WHITE BLOOD COUNT 8.6 10^3/uL (4.0-10.0)
[2022-01-06 19:00] LABS: AMPHETAMINES LEVEL URINE POSITIVE (NEGATIVE); BARBITURATES URINE NEGATIVE (NEGATIVE); BENZODIAZEPINES URINE NEGATIVE (NEGATIVE); CANNABINOIDS URINE NEGATIVE (NEGATIVE); COCAINE METABOLITE URINE POSITIVE (NEGATIVE); METHADONE URINE NEGATIVE (NEGATIVE); OPIATES URINE NEGATIVE (NEGATIVE); PHENCYCLIDINE URINE NEGATIVE (NEGATIVE)
[2022-01-06 19:01] LABS: HCG, SERUM QUALITATIVE NEGATIVE (NEGATIVE)
[2022-01-06] MEDS ORDERED: LORazepam 2 MG TAB PO STA (19:02)
[2022-01-06 19:08] LABS: RSV AMPLIFICATION NEGATIVE (NEGATIVE)
[2022-01-06 19:15] LABS: ACETAMINOPHEN LEVEL < 2.0 UG/ML (10.0-30.0); ALBUMIN 3.9 GM/DL (3.2-5.2); ALT/SGPT 24 U/L (12-78); BILIRUBIN,DIRECT 0.1 MG/DL (0.0-0.2); BILIRUBIN,TOTAL 0.5 MG/DL (0.2-1.0); BLOOD UREA NITROGEN 18 MG/DL (7-18); CALCIUM LEVEL 9.4 MG/DL (8.5-10.1); CARBON DIOXIDE LEVEL 26 MEQ/L (21-32); CHLORIDE LEVEL 108 MEQ/L (98-107); CREATININE FOR GFR 1.04 MG/DL (0.55-1.30); ETHYL ALCOHOL (ETHANOL) < 0.003 % (0.000-0.010); FREE T4 0.82 NG/DL (0.76-1.46); GLOMERULAR FILTRATION RATE > 60.0 (>60); GLUCOSE, FASTING 91 MG/DL (70-100); POTASSIUM SERUM 4.1 MEQ/L (3.5-5.1); SALICYLATE LEVEL < 1.7 MG/DL (5.0-30.0); SODIUM LEVEL 142 MEQ/L (136-145); TOTAL PROTEIN 7.9 GM/DL (6.4-8.2)
[2022-01-06] MEDS: MIRTAZAPINE 7.5MG PER 1/2 TABLET PO SCH (21:29)
[2022-01-06] MEDS: PRAZOSIN 1 MG CAP PO SCH (21:30)
[2022-01-06] MEDS: risperiDONE 2 MG TAB PO SCH (21:30)
[2022-01-06] MEDS: NAPROXEN 250 MG TAB PO SCH (21:30)
[2022-01-06] MEDS: PANTOPRAZOLE 40MG TAB (PROTONIX) PO SCH (21:30)
[2022-01-07] MEDS: risperiDONE 2 MG TAB PO SCH ×2 (09:54→21:26)
[2022-01-07] MEDS: NAPROXEN 250 MG TAB PO SCH ×2 (09:54→21:23)
[2022-01-07] MEDS: PANTOPRAZOLE 40MG TAB (PROTONIX) PO SCH ×2 (09:54→21:26)
[2022-01-07] MEDS ORDERED: REME15TA2 PO (10:09)
[2022-01-07] MEDS ORDERED: PRAZ2CAP PO (10:09)
[2022-01-07] MEDS ORDERED: LEVO50TA5 PO (10:09)
[2022-01-07] MEDS ORDERED: HOME MED LIST COMPLETE! XX SCH (10:10)
[2022-01-07] MEDS: PRAZOSIN 1 MG CAP PO SCH (21:26)
[2022-01-07] MEDS: MIRTAZAPINE 7.5MG PER 1/2 TABLET PO SCH (22:29)
[2022-01-08] MEDS: risperiDONE 2 MG TAB PO SCH ×2 (10:11→21:42)
[2022-01-08] MEDS: PANTOPRAZOLE 40MG TAB (PROTONIX) PO SCH ×2 (10:11→21:43)
[2022-01-08] MEDS: NAPROXEN 250 MG TAB PO SCH ×2 (10:12→21:43)
[2022-01-08] MEDS ORDERED: diphenhydrAMINE 25MG CAP PO PRN (12:30)
[2022-01-08] MEDS ORDERED: traZODone 50 MG TAB PO PRN (12:30)
[2022-01-08] MEDS ORDERED: MOM 30ML SUSPENSION UDC PO PRN (12:30)
[2022-01-08] MEDS ORDERED: MAALOX 30 ML SUSP *UDC PO PRN (12:30)
[2022-01-08] MEDS: lamoTRIgine 25MG TAB PO SCH (15:03)
[2022-01-08] MEDS: LEVOTHYROXINE 50MCG TABLET (0.05MG) PO SCH (15:03)
[2022-01-08] MEDS: NICOTINE 21MG/24HR 1 EA TRANSDERMAL TD SCH (15:07)
[2022-01-08 15:22] VITALS: BP 109/68
[2022-01-08] MEDS: LURASIDONE HCL 40MG TAB (LATUDA) PO SCH (17:36)
[2022-01-08] MEDS: PRAZOSIN 1 MG CAP PO SCH (21:43)
[2022-01-08] MEDS: MIRTAZAPINE 7.5MG PER 1/2 TABLET PO SCH (21:43)
[2022-01-09] MEDS: LEVOTHYROXINE 50MCG TABLET (0.05MG) PO SCH (05:50)
[2022-01-09 06:27] VITALS: BP 111/66
[2022-01-09] MEDS: lamoTRIgine 25MG TAB PO SCH (09:48)
[2022-01-09] MEDS: PANTOPRAZOLE 40MG TAB (PROTONIX) PO SCH ×2 (09:48→20:32)
[2022-01-09] MEDS: NAPROXEN 250 MG TAB PO SCH ×2 (09:49→20:30)
[2022-01-09] MEDS: NICOTINE 21MG/24HR 1 EA TRANSDERMAL TD SCH (09:49)
[2022-01-09] MEDS: risperiDONE 2 MG TAB PO SCH ×2 (09:49→20:30)
[2022-01-09] MEDS: LURASIDONE HCL 40MG TAB (LATUDA) PO SCH (18:12)
[2022-01-09 18:33] VITALS: BP 121/58
[2022-01-09] MEDS: MIRTAZAPINE 7.5MG PER 1/2 TABLET PO SCH (20:30)
[2022-01-09] MEDS: hydrOXYzine 50 MG TAB PO PRN (20:31)
[2022-01-09] MEDS: PRAZOSIN 1 MG CAP PO SCH (20:31)
[2022-01-10] MEDS: LEVOTHYROXINE 50MCG TABLET (0.05MG) PO SCH (05:37)
[2022-01-10] MEDS: PANTOPRAZOLE 40MG TAB (PROTONIX) PO SCH ×2 (09:35→20:10)
[2022-01-10] MEDS: risperiDONE 2 MG TAB PO SCH ×2 (09:35→20:10)
[2022-01-10] MEDS: NAPROXEN 250 MG TAB PO SCH ×2 (09:35→20:10)
[2022-01-10] MEDS: lamoTRIgine 25MG TAB PO SCH (09:35)
[2022-01-10] MEDS: NICOTINE 21MG/24HR 1 EA TRANSDERMAL TD SCH (09:38)
[2022-01-10 18:00] VITALS: BP 110/69
[2022-01-10] MEDS: LURASIDONE HCL 40MG TAB (LATUDA) PO SCH (18:05)
[2022-01-10] MEDS: MIRTAZAPINE 7.5MG PER 1/2 TABLET PO SCH (20:09)
[2022-01-10] MEDS: hydrOXYzine 50 MG TAB PO PRN (20:09)
[2022-01-10] MEDS: PRAZOSIN 1 MG CAP PO SCH (20:09)
[2022-01-11] MEDS: LEVOTHYROXINE 50MCG TABLET (0.05MG) PO SCH (05:21)
[2022-01-11 06:42] VITALS: BP 111/63
[2022-01-11] MEDS: NAPROXEN 250 MG TAB PO SCH ×2 (08:31→20:11)
[2022-01-11] MEDS: lamoTRIgine 25MG TAB PO SCH (08:32)
[2022-01-11] MEDS: PANTOPRAZOLE 40MG TAB (PROTONIX) PO SCH ×2 (08:33→20:09)
[2022-01-11] MEDS: NICOTINE 21MG/24HR 1 EA TRANSDERMAL TD SCH (08:33)
[2022-01-11] MEDS: risperiDONE 2 MG TAB PO SCH ×2 (08:33→20:09)
[2022-01-11] MEDS ORDERED: OLANZapine ORAL DISINTEGRATING TAB 5MG PO PRN (11:15)
[2022-01-11] MEDS: LURASIDONE HCL 40MG TAB (LATUDA) PO SCH (17:31)
[2022-01-11] MEDS: hydrOXYzine 50 MG TAB PO PRN (17:34)
[2022-01-11 18:00] VITALS: BP 147/84
[2022-01-11] MEDS: MIRTAZAPINE 7.5MG PER 1/2 TABLET PO SCH (20:08)
[2022-01-11 20:09] VITALS: BP 129/91
[2022-01-11] MEDS ORDERED: PRAZOSIN 1 MG CAP PO SCH (21:00)
[2022-01-12] MEDS: LEVOTHYROXINE 50MCG TABLET (0.05MG) PO SCH (05:41)
[2022-01-12 07:03] VITALS: BP 107/64
[2022-01-12] MEDS: NICOTINE 21MG/24HR 1 EA TRANSDERMAL TD SCH (08:18)
[2022-01-12] MEDS: lamoTRIgine 25MG TAB PO SCH (08:19)
[2022-01-12] MEDS: hydrOXYzine 50 MG TAB PO PRN (08:19)
[2022-01-12] MEDS: PANTOPRAZOLE 40MG TAB (PROTONIX) PO SCH (08:19)
[2022-01-12] MEDS: risperiDONE 2 MG TAB PO SCH (08:19)
[2022-01-12] MEDS: NAPROXEN 250 MG TAB PO SCH (08:20)
[2022-01-12] MEDS ORDERED: PANT40TA29 PO (08:33)
[2022-01-12] MEDS ORDERED: MIRT1TAB PO (08:33)
[2022-01-12] MEDS ORDERED: MINI1CAP PO (08:33)
[2022-01-12] MEDS ORDERED: NAPR500T6 PO (08:33)
[2022-01-12] MEDS ORDERED: LATU40TA2 PO (08:33)
[2022-01-12] MEDS ORDERED: LEVO50TA5 PO (08:33)
[2022-01-12] MEDS ORDERED: HYDR50TA70 PO (08:33)
[2022-01-12] MEDS ORDERED: TRAZ-252 PO (08:33)
[2022-01-12] MEDS ORDERED: LAMI25TA PO (08:33)
[2022-01-12] MEDS ORDERED: RISP4TAB33 PO (08:33)
[2022-01-12 10:08] LABS: CHOLESTEROL RISK RATIO 5.148 (<5)
== END 2022-01-12 12:37 | disposition home or self-care (01) | DRG 885 ==
LOC: M ED 16:44 → M ED INP 01-08 12:29 → M PSY 01-08 14:09
PROVIDERS: ADMIT Psychiatry & Neurology Psychiatry; ATTEND Psychiatry & Neurology Psychiatry
DX: F29 Unspecified psychosis not due to a substance or known physiological condition (principal); F15.10 Other stimulant abuse, uncomplicated; F14.10 Cocaine abuse, uncomplicated; F43.10 Post-traumatic stress disorder, unspecified; F20.0 Paranoid schizophrenia; F31.9 Bipolar disorder, unspecified; F90.9 Attention-deficit hyperactivity disorder, unspecified type; F17.200 Nicotine dependence, unspecified, uncomplicated; E03.9 Hypothyroidism, unspecified; K27.9 Peptic ulcer, site unspecified, unspecified as acute or chronic, without hemorrhage or perforation; F41.1 Generalized anxiety disorder; Z91.138 Patient's unintentional underdosing of medication regimen for other reason; Z79.899 Other long term (current) drug therapy; Z88.8 Allergy status to other drugs, medicaments and biological substances; Z91.030 Bee allergy status; Z91.048 Other nonmedicinal substance allergy status; Z98.84 Bariatric surgery status

== ENCOUNTER 2022-04-05 14:52 | Emergency (ER) | payer MEDICARE, MEDICAID ==
[~2022-04-05] VITALS: Ht 172.7 cm; Wt 95.7 kg
[~2022-04-05 14:52] MED LIST changes: +HYDR50TA70 PO; +LAMI25TA PO; +LEVO50TA5 PO; +MINI1CAP PO; +NAPR500T6 PO; +PRAZ2CAP PO; +REME15TA2 PO; +RISP4TAB33 PO
[2022-04-05] MEDS ORDERED: LORazepam 1 MG TAB PO STA (18:01)
[2022-04-05 18:56] VITALS: BP 128/90
[2022-04-05] MEDS ORDERED: ACETAMINOPHEN 500 MG TAB PO ONE (19:00)
== END 2022-04-05 19:12 | disposition home or self-care (01) ==
LOC: M ED 14:52
DX: F41.8 Other specified anxiety disorders (principal); J45.909 Unspecified asthma, uncomplicated; G40.909 Epilepsy, unspecified, not intractable, without status epilepticus; Z88.8 Allergy status to other drugs, medicaments and biological substances; Z91.030 Bee allergy status; Z91.048 Other nonmedicinal substance allergy status; M43.20 Fusion of spine, site unspecified; Z98.84 Bariatric surgery status; Z79.899 Other long term (current) drug therapy; F11.20 Opioid dependence, uncomplicated; F17.200 Nicotine dependence, unspecified, uncomplicated

== ENCOUNTER 2022-06-08 15:30 | Emergency (ER) | payer MEDICARE, MEDICAID ==
[~2022-06-08] VITALS: Ht 172.7 cm; Wt 100.0 kg
[2022-06-08 16:43] LABS: BASO # 0.1 10^3/uL (0.0-0.2); BASO % 0.5 % (0.0-1.0); EOS # 0.2 10^3/uL (0.0-0.5); EOS % 1.2 % (0.0-3.0); HEMATOCRIT 39.9 % (36.0-47.0); HEMOGLOBIN 13.1 g/dl (12.0-15.5); LYMPH # 3.2 10^3/uL (1.5-5.0); LYMPH % 21.5 % (24.0-44.0); MEAN CORPUSCULAR HEMOGLOBIN 29.3 pg (27.0-33.0); MEAN CORPUSCULAR HGB CONC 32.8 g/dl (32.0-36.5); MEAN CORPUSCULAR VOLUME 89.3 fl (80.0-96.0); MONO % 7.1 % (2.0-8.0); NEUTROPHILS # 10.2 10^3/uL (1.5-8.5); NEUTROPHILS % 69.2 % (36.0-66.0); PLATELET COUNT, AUTOMATED 310 10^3/uL (150-450); RED BLOOD COUNT 4.47 10^6/uL (4.00-5.40); WHITE BLOOD COUNT 14.7 10^3/uL (4.0-10.0)
[2022-06-08 17:43] LABS: ALBUMIN 3.8 GM/DL (3.2-5.2); ALT/SGPT 21 U/L (12-78); BILIRUBIN,DIRECT < 0.1 MG/DL (0.0-0.2); BILIRUBIN,TOTAL 0.5 MG/DL (0.2-1.0); BLOOD UREA NITROGEN 18 MG/DL (7-18); CALCIUM LEVEL 11.8 MG/DL (8.5-10.1); CARBON DIOXIDE LEVEL 26 MEQ/L (21-32); CHLORIDE LEVEL 102 MEQ/L (98-107); CREATININE FOR GFR 1.27 MG/DL (0.55-1.30); GLOMERULAR FILTRATION RATE 49.9 (>60); GLUCOSE, FASTING 102 MG/DL (70-100); LIPASE 139 U/L (73-393); POTASSIUM SERUM 4.6 MEQ/L (3.5-5.1); SODIUM LEVEL 133 MEQ/L (136-145); TOTAL PROTEIN 8.8 GM/DL (6.4-8.2)
[2022-06-08] MEDS ORDERED: GI COCKTAIL 50ML BTL(HYOSCYAMINE/MAALOX/LIDOCAINE VISCOUS)(1:3:1) PO ONE (18:05)
[2022-06-08] MEDS ORDERED: diazePAM 5MG TABLET PO ONE (18:05)
[2022-06-08] MEDS ORDERED: FAMOTIDINE 20MG/2ML VIAL IVP ONE (18:05)
[2022-06-08] MEDS ORDERED: ACETAMINOPHEN 1000MG 100ML IV BTL (OFIRMEV) (J0131 PER 10MG) IV ONE (18:05)
[2022-06-08] MEDS ORDERED: LIDOCAINE 5% (LIDODERM) PATCH TD ONE (18:05)
[2022-06-08] MEDS ORDERED: NS 1,000 ML IV ONE (18:05)
[2022-06-08 18:11] LABS: HCG, SERUM QUALITATIVE NEGATIVE (NEGATIVE)
[2022-06-08] MEDS ORDERED: ISOVUE-370 76% 100ML VIAL As Ordered ONE (18:13)
[2022-06-08 20:04] VITALS: BP 142/77
[2022-06-08] MEDS ORDERED: ONDA4TAB6 PO (20:04)
[2022-06-08] MEDS ORDERED: ACET325C5 PO (20:04)
[2022-06-08] MEDS ORDERED: VALI5TAB PO (20:04)
[2022-06-08] MEDS ORDERED: SUCR1SS PO (20:04)
[2022-06-08] MEDS ORDERED: LIDO5DIS41 TOP (20:10)
[2022-06-08] MEDS ORDERED: CARA1TAB6 PO (21:31)
== END 2022-06-08 20:30 | disposition home or self-care (01) ==
LOC: M ED 15:30
DX: K29.50 Unspecified chronic gastritis without bleeding (principal); G89.29 Other chronic pain; M54.40 Lumbago with sciatica, unspecified side; K76.0 Fatty (change of) liver, not elsewhere classified; R91.8 Other nonspecific abnormal finding of lung field; M96.1 Postlaminectomy syndrome, not elsewhere classified; E11.51 Type 2 diabetes mellitus with diabetic peripheral angiopathy without gangrene; E03.9 Hypothyroidism, unspecified; Z88.1 Allergy status to other antibiotic agents; Z88.8 Allergy status to other drugs, medicaments and biological substances; Z91.048 Other nonmedicinal substance allergy status; Z91.030 Bee allergy status; Z79.890 Hormone replacement therapy; Z79.899 Other long term (current) drug therapy
CPT/HCPCS: 74177; 80048; 80076; 83690; 84703; 85025; 96361; 96374; 96375; 99284; J0131; Q9967

== ENCOUNTER 2022-09-19 15:38 | Inpatient (IN) | payer MEDICARE, MEDICAID ==
[~2022-09-19] VITALS: Ht 172.7 cm; Wt 107.7 kg
[~2022-09-19 15:38] MED LIST changes: +ACET325C5 PO; +LIDO5DIS41 TOP; +VALI5TAB PO
[2022-09-19] MEDS ORDERED: CLON0.5T2 PO (16:27)
[2022-09-19] MEDS ORDERED: PANTOPRAZOLE 40MG VIAL IV ONE (18:35)
[2022-09-19] MEDS ORDERED: ONDANSETRON 4MG 2ML VIAL IV ONE (18:35)
[2022-09-19] MEDS ORDERED: NS 1,000 ML IV ONE (18:35)
[2022-09-19] MEDS ORDERED: MORPHINE 4 MG/ML 1ML VIAL IV ONE (18:35)
[2022-09-19 19:33] LABS: BASO # 0.1 10^3/uL (0.0-0.2); BASO % 0.4 % (0.0-1.0); EOS % 0.2 % (0.0-3.0); HEMATOCRIT 37.6 % (36.0-47.0); HEMOGLOBIN 11.9 g/dl (12.0-15.5); LYMPH # 1.5 10^3/uL (1.5-5.0); LYMPH % 9.7 % (24.0-44.0); MEAN CORPUSCULAR HEMOGLOBIN 28.5 pg (27.0-33.0); MEAN CORPUSCULAR HGB CONC 31.6 g/dl (32.0-36.5); MEAN CORPUSCULAR VOLUME 90.2 fl (80.0-96.0); MONO % 11.1 % (2.0-8.0); NEUTROPHILS # 11.9 10^3/uL (1.5-8.5); NEUTROPHILS % 78.1 % (36.0-66.0); PLATELET COUNT, AUTOMATED 241 10^3/uL (150-450); RED BLOOD COUNT 4.17 10^6/uL (4.00-5.40); WHITE BLOOD COUNT 15.3 10^3/uL (4.0-10.0)
[2022-09-19 19:43] LABS: MONO # 1.7 10^3/uL (0.0-0.8)
[2022-09-19 19:44] LABS: INR 0.97; PROTHROMBIN TIME 13.1 SECONDS (12.5-14.5)
[2022-09-19 19:45] LABS: PARTIAL THROMBOPLASTIN TIME 24.8 SECONDS (24.8-34.2)
[2022-09-19] MEDS ORDERED: MORPHINE 2 MG/ML 1ML VIAL IV ONE (19:55)
[2022-09-19 19:59] LABS: ALBUMIN 3.3 G/DL (3.2-5.2); BILIRUBIN,DIRECT 0.2 MG/DL (<0.4); BILIRUBIN,TOTAL 0.6 MG/DL (0.3-1.2); CALCIUM LEVEL 12.9 MG/DL (8.5-10.1); CREATININE FOR GFR 1.2 MG/DL (0.55-1.30); POTASSIUM SERUM 4.4 MMOL/L (3.5-5.1); TOTAL PROTEIN 7.3 G/DL (5.7-8.2)
[2022-09-19] MEDS ORDERED: INVE234I INJ (20:22)
[2022-09-19] MEDS ORDERED: PALI1TAB PO (20:22)
[2022-09-19] MEDS ORDERED: LAMO100T3 PO (20:22)
[2022-09-19] MEDS ORDERED: PRAZ2CAP PO (20:22)
[2022-09-19] MEDS ORDERED: SUCRALFATE SUSP 1GM/10ML UD PO ONE (20:25)
[2022-09-19] MEDS ORDERED: MED REC COMMENT (20:26)
[2022-09-19] MEDS ORDERED: HOME MED LIST COMPLETE! XX SCH (20:30)
[2022-09-19] MEDS: PRAZOSIN 1 MG CAP PO SCH (23:28)
[2022-09-19] MEDS: clonazePAM 0.5 MG TAB PO SCH (23:28)
[2022-09-19 23:47] VITALS: BP 143/80
[2022-09-20] VITALS (7 sets, daily range): BP systolic 111–135; BP diastolic 62–88
[2022-09-20] MEDS ORDERED: NS 1,000 ML IV SCH (00:05)
[2022-09-20] MEDS ORDERED: ACETAMINOPHEN 1000MG 100ML IV BAG IV ONE (01:00)
[2022-09-20] MEDS: NICOTINE 7 MG/24 HR TRANSDERMAL TD SCH ×2 (02:14→09:00)
[2022-09-20 05:03] LABS: HEMATOCRIT 33.1 % (36.0-47.0); HEMOGLOBIN 10.4 g/dl (12.0-15.5)
[2022-09-20 05:25] LABS: THYROID STIMULATING HORMONE 52.517 uIU/ML (0.55-4.78)
[2022-09-20 05:26] LABS: FREE T4 0.54 NG/DL (0.89-1.76)
[2022-09-20] MEDS: lamoTRIgine 100MG TAB PO SCH (08:44)
[2022-09-20] MEDS: clonazePAM 0.5 MG TAB PO SCH ×2 (08:44→20:43)
[2022-09-20] MEDS: PANTOPRAZOLE 40MG VIAL IV SCH ×2 (08:44→20:44)
[2022-09-20] MEDS ORDERED: PALIPERIDONE 1.5 MG PO SCH (09:00)
[2022-09-20 09:30] LABS: TOTAL 25(OH) VITAMIN D 13.2 NG/ML (20.0-100.0)
[2022-09-20 09:41] LABS: ALBUMIN 2.8 G/DL (3.2-5.2); BILIRUBIN,TOTAL 0.8 MG/DL (0.3-1.2); CREATININE FOR GFR 1.45 MG/DL (0.55-1.30); GLOMERULAR FILTRATION RATE 42.6 (>58); POTASSIUM SERUM 3.7 MMOL/L (3.5-5.1); TOTAL PROTEIN 6.4 G/DL (5.7-8.2)
[2022-09-20] MEDS: NS 1,000 ML IV SCH ×2 (09:44→20:42)
[2022-09-20] MEDS: MORPHINE 2 MG/ML 1ML VIAL IV PRN ×2 (12:58→19:33)
[2022-09-20 14:09] LABS: HEMATOCRIT 33.9 % (36.0-47.0); HEMOGLOBIN 10.7 g/dl (12.0-15.5)
[2022-09-20 15:00] LABS: PERCENT SATURATION 15.8 % (13.2-45.0)
[2022-09-20 15:02] LABS: FERRITIN 10.6 NG/ML (7.3-270.7); FOLATE 5.55 NG/ML (>5.4)
[2022-09-20] MEDS ORDERED: propofoL 200 MG/20 ML VIAL As Ordered ONE (16:49)
[2022-09-20] MEDS ORDERED: fentaNYL 100 MCG/2 ML INJECTION As Ordered ONE (16:49)
[2022-09-20] MEDS ORDERED: LIDOCAINE 2% 100MG/5ML SDV (FOR ANES.) As Ordered ONE (16:49)
[2022-09-20] MEDS ORDERED: ONDANSETRON 4MG 2ML VIAL IV PRN (17:00)
[2022-09-20] MEDS ORDERED: fentaNYL 100 MCG/2 ML INJECTION IV PRN (17:00)
[2022-09-20 19:20] LABS: HEMATOCRIT 32.4 % (36.0-47.0); HEMOGLOBIN 10.2 g/dl (12.0-15.5)
[2022-09-20] MEDS: SUCRALFATE SUSP 1GM/10ML UD PO SCH (20:43)
[2022-09-20] MEDS: PRAZOSIN 1 MG CAP PO SCH (20:44)
[2022-09-21] MEDS ORDERED: UNRESOLVED PATIENT OWN MED ORDER XX SCH (00:01)
[2022-09-21] MEDS: MORPHINE 2 MG/ML 1ML VIAL IV PRN (00:04)
[2022-09-21 00:30] VITALS: BP 119/74
[2022-09-21 04:32] VITALS: BP 132/85
[2022-09-21] MEDS: NS 1,000 ML IV SCH (06:26)
[2022-09-21 07:35] LABS: HEMOGLOBIN 10.4 g/dl (12.0-15.5); MEAN CORPUSCULAR HEMOGLOBIN 28.7 pg (27.0-33.0); MEAN CORPUSCULAR HGB CONC 31.5 g/dl (32.0-36.5); MEAN CORPUSCULAR VOLUME 91.2 fl (80.0-96.0); PLATELET COUNT, AUTOMATED 225 10^3/uL (150-450); RED BLOOD COUNT 3.62 10^6/uL (4.00-5.40); WHITE BLOOD COUNT 7.9 10^3/uL (4.0-10.0)
[2022-09-21] MEDS: MORPHINE 4 MG/ML 1ML VIAL IV PRN ×2 (07:43→12:57)
[2022-09-21 07:55] LABS: ALBUMIN 2.6 G/DL (3.2-5.2); BILIRUBIN,TOTAL 0.7 MG/DL (0.3-1.2); CALCIUM LEVEL 8.8 MG/DL (8.5-10.1); CREATININE FOR GFR 1.25 MG/DL (0.55-1.30); GLOMERULAR FILTRATION RATE 50.5 (>58); POTASSIUM SERUM 3.9 MMOL/L (3.5-5.1); TOTAL PROTEIN 6.1 G/DL (5.7-8.2)
[2022-09-21] MEDS: SUCRALFATE SUSP 1GM/10ML UD PO SCH ×2 (08:39→12:56)
[2022-09-21] MEDS: NICOTINE 7 MG/24 HR TRANSDERMAL TD SCH (08:39)
[2022-09-21] MEDS: PANTOPRAZOLE 40MG VIAL IV SCH (08:39)
[2022-09-21] MEDS: clonazePAM 0.5 MG TAB PO SCH (08:39)
[2022-09-21] MEDS: lamoTRIgine 100MG TAB PO SCH (08:39)
[2022-09-21 09:03] VITALS: BP 117/73
[2022-09-21 13:06] VITALS: BP 126/79
[2022-09-21] MEDS ORDERED: SUCR1ORA PO (13:09)
[2022-09-21] MEDS ORDERED: PROT20TA11 PO (13:09)
== END 2022-09-21 14:28 | disposition home or self-care (01) | DRG 378 ==
LOC: M ED 15:38 → EDBD 15:38 → M ED INP 22:25 → ENRESERV 23:12 → M PCU 23:39
PROVIDERS: ADMIT Internal Medicine; ATTEND Internal Medicine
PROC: 0DB38ZX Excision of Lower Esophagus, Via Natural or Artificial Opening Endoscopic, Diagnostic (ICD-10-PCS; principal; 2022-09-20 14:00)
DX: K92.0 Hematemesis (principal); D62 Acute posthemorrhagic anemia; G43.709 Chronic migraine without aura, not intractable, without status migrainosus; E83.52 Hypercalcemia; R10.13 Epigastric pain; F17.210 Nicotine dependence, cigarettes, uncomplicated; F31.9 Bipolar disorder, unspecified; K20.80 Other esophagitis without bleeding; F20.9 Schizophrenia, unspecified; E03.9 Hypothyroidism, unspecified; E66.9 Obesity, unspecified; K27.9 Peptic ulcer, site unspecified, unspecified as acute or chronic, without hemorrhage or perforation; N18.2 Chronic kidney disease, stage 2 (mild); F43.10 Post-traumatic stress disorder, unspecified; E06.3 Autoimmune thyroiditis; Z98.84 Bariatric surgery status; Z90.49 Acquired absence of other specified parts of digestive tract; Z79.899 Other long term (current) drug therapy; Z88.8 Allergy status to other drugs, medicaments and biological substances; Z91.030 Bee allergy status; Z91.048 Other nonmedicinal substance allergy status

== ENCOUNTER 2022-09-24 21:54 | Emergency (ER) | payer MEDICARE, MEDICAID ==
[~2022-09-24] VITALS: Ht 172.7 cm; Wt 104.6 kg
[~2022-09-24 21:54] MED LIST changes: +CLON0.5T2 PO; +INVE234I INJ; +LAMO100T3 PO; +MED REC COMMENT; +PALI1TAB PO; +PROT20TA11 PO; +SUCR1ORA PO
[2022-09-24 21:55] VITALS: BP 141/91
== END 2022-09-24 22:53 | disposition left against medical advice (07) ==
LOC: M ED 21:54
DX: Z53.21 Procedure and treatment not carried out due to patient leaving prior to being seen by health care provider (principal)

== ENCOUNTER → 2022-11-04 | Outpatient (REF) | payer MEDICARE, MEDICAID ==
[~2022-11-04] MED LIST changes: +ACET1TAB55 PO; +DICY20TA20 PO; +ZOLP5TAB PO
== END ==
LOC: M PLALAB 16:27
PROVIDERS: ATTEND Advanced Practice Midwife
DX: Z01.419 Encounter for gynecological examination (general) (routine) without abnormal findings (principal); R87.610 Atypical squamous cells of undetermined significance on cytologic smear of cervix (ASC-US); R87.618 Other abnormal cytological findings on specimens from cervix uteri

== ENCOUNTER 2022-11-21 15:51 | Inpatient (IN) | payer MEDICARE, MEDICAID ==
[~2022-11-21] VITALS: Ht 172.7 cm; Wt 103.8 kg
[~2022-11-21 15:51] MED LIST changes: -ACET1TAB55 PO; -DICY20TA20 PO; -ZOLP5TAB PO
[2022-11-21] MEDS ORDERED: PANTOPRAZOLE 40MG VIAL IV ONE (16:15)
[2022-11-21] MEDS ORDERED: ONDANSETRON 4MG 2ML VIAL IV ONE (16:15)
[2022-11-21] MEDS ORDERED: GI COCKTAIL 50ML BTL(HYOSCYAMINE/MAALOX/LIDOCAINE VISCOUS)(1:3:1) PO ONE (16:15)
[2022-11-21] MEDS ORDERED: MORPHINE 4 MG/ML 1ML VIAL IV ONE ×3 (16:15→17:40)
[2022-11-21 17:45] LABS: BASO # 0.1 10^3/uL (0.0-0.2); BASO % 0.4 % (0.0-1.0); EOS # 0.1 10^3/uL (0.0-0.5); EOS % 1.2 % (0.0-3.0); HEMOGLOBIN 11.4 g/dl (12.0-15.5); LYMPH # 2.4 10^3/uL (1.5-5.0); LYMPH % 21.1 % (24.0-44.0); MEAN CORPUSCULAR HEMOGLOBIN 28.1 pg (27.0-33.0); MEAN CORPUSCULAR HGB CONC 31.7 g/dl (32.0-36.5); MEAN CORPUSCULAR VOLUME 88.9 fl (80.0-96.0); MONO % 8.5 % (2.0-8.0); NEUTROPHILS # 7.8 10^3/uL (1.5-8.5); NEUTROPHILS % 68.5 % (36.0-66.0); PLATELET COUNT, AUTOMATED 294 10^3/uL (150-450); RED BLOOD COUNT 4.05 10^6/uL (4.00-5.40); WHITE BLOOD COUNT 11.5 10^3/uL (4.0-10.0)
[2022-11-21 17:50] LABS: LIPASE 23 U/L (12-53)
[2022-11-21 17:51] LABS: HCG, SERUM QUALITATIVE NEGATIVE (NEGATIVE)
[2022-11-21 17:52] LABS: ALBUMIN 3.4 G/DL (3.2-5.2); ALKALINE PHOSPHATASE 84 U/L (46-116); ALT/SGPT 23 U/L (7.0-40); AST/SGOT 22 U/L (<34); BILIRUBIN,DIRECT 0.1 MG/DL (<0.4); BILIRUBIN,TOTAL 0.4 MG/DL (0.3-1.2); BLOOD UREA NITROGEN 7 MG/DL (9-23); CALCIUM LEVEL 9.1 MG/DL (8.5-10.1); CARBON DIOXIDE LEVEL 24 MMOL/L (20-31); CHLORIDE LEVEL 106 MMOL/L (98-107); CREATININE FOR GFR 0.83 MG/DL (0.55-1.30); GLOMERULAR FILTRATION RATE > 60.0 (>58); GLUCOSE, FASTING 90 MG/DL (60-100); SODIUM LEVEL 137 MMOL/L (136-145); TOTAL PROTEIN 7.7 G/DL (5.7-8.2)
[2022-11-21] MEDS ORDERED: ISOVUE-370 76% 100ML VIAL As Ordered ONE (17:54)
[2022-11-21 17:56] LABS: INR 0.92; PROTHROMBIN TIME 12.6 SECONDS (12.5-14.5)
[2022-11-21 17:57] LABS: PARTIAL THROMBOPLASTIN TIME 30.7 SECONDS (24.8-34.2)
[2022-11-21] MEDS ORDERED: ONDANSETRON 4MG 2ML VIAL IV PRN (19:35)
[2022-11-21] MEDS ORDERED: ACETAMINOPHEN TAB 650MG DOSE (2X325MG) PO PRN (19:35)
[2022-11-21] MEDS ORDERED: DICYCLOMINE 10 MG CAP PO PRN (19:35)
[2022-11-21] MEDS ORDERED: DICY20TA20 PO (20:01)
[2022-11-21] MEDS ORDERED: ZOLP5TAB PO (20:01)
[2022-11-21 20:03] LABS: RSV AMPLIFICATION NEGATIVE (NEGATIVE)
[2022-11-21] MEDS ORDERED: HOME MED LIST COMPLETE! XX SCH (20:05)
[2022-11-21] MEDS: PANTOPRAZOLE 40MG VIAL IV SCH (20:15)
[2022-11-21] MEDS: MORPHINE 2 MG/ML 1ML VIAL IV PRN (21:24)
[2022-11-21] MEDS: SUCRALFATE SUSP 1GM/10ML UD PO SCH (21:25)
[2022-11-21] MEDS: DICYCLOMINE 10 MG CAP PO PRN (22:56)
[2022-11-21] MEDS: LR 1,000 ML IV SCH (22:56)
[2022-11-22] MEDS: MORPHINE 2 MG/ML 1ML VIAL IV PRN (01:51)
[2022-11-22 03:40] VITALS: BP 149/65
[2022-11-22] MEDS: MORPHINE 4 MG/ML 1ML VIAL IV PRN ×4 (06:12→21:02)
[2022-11-22 06:13] VITALS: BP 124/64
[2022-11-22 06:55] LABS: HEMATOCRIT 32.3 % (36.0-47.0); MEAN CORPUSCULAR HEMOGLOBIN 27.5 pg (27.0-33.0); PLATELET COUNT, AUTOMATED 269 10^3/uL (150-450); RED BLOOD COUNT 3.63 10^6/uL (4.00-5.40); WHITE BLOOD COUNT 9.7 10^3/uL (4.0-10.0)
[2022-11-22 07:05] LABS: INR 0.98; PROTHROMBIN TIME 13.2 SECONDS (12.5-14.5)
[2022-11-22] MEDS: LR 1,000 ML IV SCH ×4 (07:20→21:54)
[2022-11-22 07:24] LABS: ALBUMIN 2.9 G/DL (3.2-5.2); ALKALINE PHOSPHATASE 71 U/L (46-116); ALT/SGPT 20 U/L (7.0-40); AST/SGOT 22 U/L (<34); BILIRUBIN,TOTAL 0.6 MG/DL (0.3-1.2); BLOOD UREA NITROGEN < 5 MG/DL (9-23); CALCIUM LEVEL 8.6 MG/DL (8.5-10.1); CARBON DIOXIDE LEVEL 26 MMOL/L (20-31); CHLORIDE LEVEL 107 MMOL/L (98-107); CREATININE FOR GFR 0.85 MG/DL (0.55-1.30); GLOMERULAR FILTRATION RATE > 60.0 (>58); GLUCOSE, FASTING 97 MG/DL (60-100); MAGNESIUM LEVEL 1.9 MG/DL (1.8-2.4); POTASSIUM SERUM 4.2 MMOL/L (3.5-5.1); SODIUM LEVEL 137 MMOL/L (136-145); TOTAL PROTEIN 6.6 G/DL (5.7-8.2)
[2022-11-22] MEDS: clonazePAM 0.5 MG TAB PO SCH ×2 (09:48→21:01)
[2022-11-22] MEDS: lamoTRIgine 100MG TAB PO SCH (09:48)
[2022-11-22] MEDS: PANTOPRAZOLE 40MG VIAL IV SCH ×2 (09:48→21:01)
[2022-11-22] MEDS: SUCRALFATE SUSP 1GM/10ML UD PO SCH ×4 (09:54→21:00)
[2022-11-22 14:00] VITALS: BP 108/63
[2022-11-22 14:43] LABS: HEMATOCRIT 31.6 % (36.0-47.0); MEAN CORPUSCULAR HEMOGLOBIN 28.3 pg (27.0-33.0); MEAN CORPUSCULAR HGB CONC 31.6 g/dl (32.0-36.5); MEAN CORPUSCULAR VOLUME 89.5 fl (80.0-96.0); PLATELET COUNT, AUTOMATED 271 10^3/uL (150-450); RED BLOOD COUNT 3.53 10^6/uL (4.00-5.40); WHITE BLOOD COUNT 8.5 10^3/uL (4.0-10.0)
[2022-11-22] MEDS: DICYCLOMINE 10 MG CAP PO PRN (18:08)
[2022-11-22 20:46] VITALS: BP 138/78
[2022-11-22 20:51] LABS: HEMATOCRIT 32.2 % (36.0-47.0); HEMOGLOBIN 9.9 g/dl (12.0-15.5); MEAN CORPUSCULAR HEMOGLOBIN 27.7 pg (27.0-33.0); MEAN CORPUSCULAR HGB CONC 30.7 g/dl (32.0-36.5); MEAN CORPUSCULAR VOLUME 90.2 fl (80.0-96.0); PLATELET COUNT, AUTOMATED 260 10^3/uL (150-450); RED BLOOD COUNT 3.57 10^6/uL (4.00-5.40); WHITE BLOOD COUNT 7.6 10^3/uL (4.0-10.0)
[2022-11-22] MEDS ORDERED: PRAZOSIN 1 MG CAP PO SCH (21:00)
[2022-11-22] MEDS ORDERED: zolPIDEM TARTRATE 5 MG TAB PO SCH (21:00)
[2022-11-22 21:01] VITALS: BP 138/78
[2022-11-23] MEDS: MORPHINE 4 MG/ML 1ML VIAL IV PRN ×2 (02:07→07:50)
[2022-11-23] MEDS: DICYCLOMINE 10 MG CAP PO PRN (05:09)
[2022-11-23] MEDS: LR 1,000 ML IV SCH (05:09)
[2022-11-23 05:31] VITALS: BP 125/71
[2022-11-23 07:23] LABS: HEMATOCRIT 30.8 % (36.0-47.0); HEMOGLOBIN 9.8 g/dl (12.0-15.5); MEAN CORPUSCULAR HEMOGLOBIN 28.7 pg (27.0-33.0); MEAN CORPUSCULAR HGB CONC 31.8 g/dl (32.0-36.5); MEAN CORPUSCULAR VOLUME 90.3 fl (80.0-96.0); PLATELET COUNT, AUTOMATED 261 10^3/uL (150-450); RED BLOOD COUNT 3.41 10^6/uL (4.00-5.40); WHITE BLOOD COUNT 6.8 10^3/uL (4.0-10.0)
[2022-11-23] MEDS: PANTOPRAZOLE 40MG VIAL IV SCH (07:50)
[2022-11-23] MEDS: SUCRALFATE SUSP 1GM/10ML UD PO SCH (07:50)
[2022-11-23] MEDS: lamoTRIgine 100MG TAB PO SCH (07:50)
[2022-11-23] MEDS: clonazePAM 0.5 MG TAB PO SCH (07:50)
[2022-11-23] MEDS ORDERED: ACET1TAB55 PO (08:52)
[2022-11-23] MEDS ORDERED: PANT40TA29 PO (08:52)
[2022-11-23] MEDS ORDERED: PANTOPRAZOLE 40MG TAB (PROTONIX) PO SCH (21:00)
== END 2022-11-23 11:55 | disposition home or self-care (01) | DRG 378 ==
LOC: EDBD 15:51 → M ED 15:51 → M ED INP 19:33 → M MS5PR 11-22 03:40
PROVIDERS: ADMIT Internal Medicine; ATTEND Student in an Organized Health Care Education/Training Program
DX: K28.4 Chronic or unspecified gastrojejunal ulcer with hemorrhage (principal); K50.90 Crohn's disease, unspecified, without complications; F31.9 Bipolar disorder, unspecified; F41.9 Anxiety disorder, unspecified; G47.00 Insomnia, unspecified; K76.0 Fatty (change of) liver, not elsewhere classified; D50.0 Iron deficiency anemia secondary to blood loss (chronic); K52.9 Noninfective gastroenteritis and colitis, unspecified; K42.9 Umbilical hernia without obstruction or gangrene; Z90.49 Acquired absence of other specified parts of digestive tract; Z98.84 Bariatric surgery status; Z79.899 Other long term (current) drug therapy; Z88.8 Allergy status to other drugs, medicaments and biological substances; Z91.030 Bee allergy status; Z91.048 Other nonmedicinal substance allergy status

== ENCOUNTER 2022-12-16 16:46 | Emergency (ER) | payer MEDICARE, MEDICAID ==
[~2022-12-16] VITALS: Ht 172.7 cm; Wt 102.3 kg
[~2022-12-16 16:46] MED LIST changes: +ACET1TAB55 PO; +DICY20TA20 PO; +ZOLP5TAB PO
[2022-12-16 18:33] LABS: HEMATOCRIT 36.5 % (36.0-47.0); HEMOGLOBIN 11.6 g/dl (12.0-15.5); MEAN CORPUSCULAR HEMOGLOBIN 28.2 pg (27.0-33.0); MEAN CORPUSCULAR HGB CONC 31.8 g/dl (32.0-36.5); MEAN CORPUSCULAR VOLUME 88.8 fl (80.0-96.0); PLATELET COUNT, AUTOMATED 319 10^3/uL (150-450); RED BLOOD COUNT 4.11 10^6/uL (4.00-5.40); WHITE BLOOD COUNT 9.1 10^3/uL (4.0-10.0)
[2022-12-16 18:38] LABS: LIPASE 29 U/L (12-53)
[2022-12-16 18:40] LABS: ALBUMIN 3.5 G/DL (3.2-5.2); ALKALINE PHOSPHATASE 87 U/L (46-116); ALT/SGPT 31 U/L (7.0-40); AST/SGOT 29 U/L (<34); BILIRUBIN,DIRECT < 0.1 MG/DL (<0.4); BILIRUBIN,TOTAL 0.3 MG/DL (0.3-1.2); BLOOD UREA NITROGEN 12 MG/DL (9-23); CALCIUM LEVEL 9.9 MG/DL (8.5-10.1); CARBON DIOXIDE LEVEL 26 MMOL/L (20-31); CHLORIDE LEVEL 105 MMOL/L (98-107); CREATININE FOR GFR 0.88 MG/DL (0.55-1.30); GLOMERULAR FILTRATION RATE > 60.0 (>58); GLUCOSE, FASTING 105 MG/DL (60-100); POTASSIUM SERUM 4.1 MMOL/L (3.5-5.1); SODIUM LEVEL 138 MMOL/L (136-145); TOTAL PROTEIN 7.9 G/DL (5.7-8.2)
[2022-12-16] MEDS ORDERED: METOCLOPRAMIDE INJ 10MG/2ML VIAL IV ONE (19:30)
[2022-12-16] MEDS ORDERED: KETOROLAC 30 MG/ML 1ML VIAL IV ONE (19:30)
[2022-12-16] MEDS ORDERED: NS 1,000 ML IV ONE (19:30)
[2022-12-16] MEDS: GASTROGRAFIN SOLUTION 30ML PO SCH ×2 (20:24→21:27)
[2022-12-16] MEDS ORDERED: ISOVUE-370 76% 100ML VIAL As Ordered ONE (21:23)
[2022-12-16 22:25] VITALS: BP 146/88
[2022-12-16] MEDS ORDERED: MIRA3350 PO (23:32)
== END 2022-12-17 00:03 | disposition home or self-care (01) ==
LOC: M ED 16:46
DX: K59.00 Constipation, unspecified (principal); E11.9 Type 2 diabetes mellitus without complications; E03.9 Hypothyroidism, unspecified; R51.9 Headache, unspecified; J45.909 Unspecified asthma, uncomplicated; K29.70 Gastritis, unspecified, without bleeding; F17.200 Nicotine dependence, unspecified, uncomplicated; Z88.8 Allergy status to other drugs, medicaments and biological substances; Z91.030 Bee allergy status; Z79.899 Other long term (current) drug therapy
CPT/HCPCS: 36415; 74018; 74176; 80048; 80076; 83690; 85027; 99284; J1885; J2765; Q9963

== ENCOUNTER → 2023-01-06 | Outpatient (REF) | payer MEDICARE, MEDICAID ==
[~2023-01-06] MED LIST changes: +MIRA3350 PO
== END ==
LOC: M PLALAB 10:24
PROVIDERS: ATTEND Advanced Practice Midwife
DX: N76.0 Acute vaginitis (principal)

== ENCOUNTER 2023-08-18 18:43 | Emergency (ER) | payer MEDICARE, MEDICAID ==
[~2023-08-18] VITALS: Ht 172.7 cm; Wt 104.5 kg
[~2023-08-18 18:43] MED LIST changes: +MIRT-84 PO; -REME15TA2 PO; -ROPI0.253 PO; +ROPI5TAB19 PO
[2023-08-18] MEDS ORDERED: PERCOCET 5MG/325MG TAB PO ONE (20:25)
[2023-08-18 20:28] LABS: BASO % 0.5 % (0.0-1.0); EOS # 0.2 10^3/uL (0.0-0.5); HEMATOCRIT 39.5 % (36.0-47.0); LYMPH # 2.7 10^3/uL (1.5-5.0); LYMPH % 31.5 % (24.0-44.0); MEAN CORPUSCULAR HEMOGLOBIN 30.6 pg (27.0-33.0); MEAN CORPUSCULAR HGB CONC 32.9 g/dl (32.0-36.5); MEAN CORPUSCULAR VOLUME 92.9 fl (80.0-96.0); MONO # 0.6 10^3/uL (0.0-0.8); MONO % 6.8 % (2.0-8.0); NEUTROPHILS # 5.1 10^3/uL (1.5-8.5); NEUTROPHILS % 58.9 % (36.0-66.0); PLATELET COUNT, AUTOMATED 317 10^3/uL (150-450); RED BLOOD COUNT 4.25 10^6/uL (4.00-5.40); WHITE BLOOD COUNT 8.6 10^3/uL (4.0-10.0)
[2023-08-18 20:46] LABS: CK-MB VALUE MASS 1.2 NG/ML (<3.6); LIPASE 27 U/L (12-53)
[2023-08-18 20:48] LABS: ALBUMIN 3.1 G/DL (3.2-5.2); ALKALINE PHOSPHATASE 90 U/L (46-116); ALT/SGPT 28 U/L (7.0-40); AST/SGOT 24 U/L (<34); BILIRUBIN,DIRECT 0.1 MG/DL (<0.4); BILIRUBIN,TOTAL 0.4 MG/DL (0.3-1.2); BLOOD UREA NITROGEN 12 MG/DL (9-23); CARBON DIOXIDE LEVEL 26 MMOL/L (20-31); CHLORIDE LEVEL 106 MMOL/L (98-107); CREATININE FOR GFR 0.88 MG/DL (0.55-1.30); GLOMERULAR FILTRATION RATE > 60.0 (>58); GLUCOSE, FASTING 89 MG/DL (60-100); POTASSIUM SERUM 4.2 MMOL/L (3.5-5.1); SODIUM LEVEL 138 MMOL/L (136-145); TOTAL PROTEIN 7.2 G/DL (5.7-8.2)
[2023-08-18 20:50] LABS: THYROID STIMULATING HORMONE 24.287 uIU/ML (0.55-4.78)
[2023-08-18 20:52] LABS: CPK CREATINE PHOSPHOKINASE 216 U/L (34-145); MB/CK RELATIVE INDEX 0.55 (< OR =4)
[2023-08-18] MEDS ORDERED: KETO10TAB PO (22:13)
[2023-08-18 22:32] LABS: FREE T4 0.66 NG/DL (0.89-1.76)
[2023-08-18 23:04] VITALS: BP 121/73; TEMP 97.9; O2SAT 96
== END 2023-08-18 23:05 | disposition home or self-care (01) ==
LOC: EDSEX 18:43 → M ED 18:43 → EDBD 18:43 → M ED 23:05
DX: R07.9 Chest pain, unspecified (principal); R00.0 Tachycardia, unspecified; K21.9 Gastro-esophageal reflux disease without esophagitis; J45.909 Unspecified asthma, uncomplicated; F31.9 Bipolar disorder, unspecified; F90.9 Attention-deficit hyperactivity disorder, unspecified type; F43.10 Post-traumatic stress disorder, unspecified; Z91.048 Other nonmedicinal substance allergy status; Z88.8 Allergy status to other drugs, medicaments and biological substances; Z91.030 Bee allergy status; Z88.6 Allergy status to analgesic agent; Z79.899 Other long term (current) drug therapy; Z79.1 Long term (current) use of non-steroidal anti-inflammatories (NSAID); Z79.2 Long term (current) use of antibiotics

== ENCOUNTER 2024-01-14 08:08 | Emergency (ER) | payer MEDICARE, MEDICAID ==
[~2024-01-14] VITALS: Ht 172.7 cm; Wt 112.4 kg
[~2024-01-14 08:08] MED LIST changes: +KETO10TAB PO; +ONDA-282 PO; -ONDA4TAB6 PO; -RISP-11 PO; +RISP4TAB95 PO
[2024-01-14 11:24] LABS: BASO % 0.4 % (0.0-1.0); EOS # 0.1 10^3/uL (0.0-0.5); EOS % 1.2 % (0.0-3.0); HEMATOCRIT 41.7 % (36.0-47.0); HEMOGLOBIN 13.9 g/dl (12.0-15.5); LYMPH # 2.9 10^3/uL (1.5-5.0); LYMPH % 26.2 % (24.0-44.0); MEAN CORPUSCULAR HEMOGLOBIN 31.6 pg (27.0-33.0); MEAN CORPUSCULAR HGB CONC 33.3 g/dl (32.0-36.5); MEAN CORPUSCULAR VOLUME 94.8 fl (80.0-96.0); MONO % 9.4 % (2.0-8.0); NEUTROPHILS # 6.9 10^3/uL (1.5-8.5); NEUTROPHILS % 62.3 % (36.0-66.0); PLATELET COUNT, AUTOMATED 296 10^3/uL (150-450)
[2024-01-14] MEDS: ONDANSETRON 4MG 2ML VIAL IV ONE (11:36)
[2024-01-14] MEDS: NS 1,000 ML IV ONE (11:36)
[2024-01-14] MEDS: MORPHINE 2 MG/ML 1ML VIAL IV ONE (11:37)
[2024-01-14 11:55] LABS: LIPASE 28 U/L (12-53)
[2024-01-14 11:57] LABS: ALBUMIN 3.7 G/DL (3.2-5.2); ALKALINE PHOSPHATASE 96 U/L (46-116); ALT/SGPT 39 U/L (7.0-40); AST/SGOT 24 U/L (<34); BILIRUBIN,DIRECT 0.3 MG/DL (<0.4); BILIRUBIN,TOTAL 0.9 MG/DL (0.3-1.2); BLOOD UREA NITROGEN 13 MG/DL (9-23); CALCIUM LEVEL 12.9 MG/DL (8.5-10.1); CARBON DIOXIDE LEVEL 32 MMOL/L (20-31); CHLORIDE LEVEL 100 MMOL/L (98-107); CREATININE FOR GFR 1.42 MG/DL (0.55-1.30); GLOMERULAR FILTRATION RATE 43.4 (>58); GLUCOSE, FASTING 115 MG/DL (60-100); POTASSIUM SERUM 4.1 MMOL/L (3.5-5.1); SODIUM LEVEL 138 MMOL/L (136-145)
[2024-01-14] MEDS ORDERED: ISOVUE-370 76% 100ML VIAL As Ordered ONE (12:12)
[2024-01-14 12:45] LABS: CK-MB VALUE MASS < 1.0 NG/ML (<3.6)
[2024-01-14 12:48] LABS: CPK CREATINE PHOSPHOKINASE 95 U/L (34-145); MB/CK RELATIVE INDEX 1.05 (< OR =4)
[2024-01-14] MEDS: ACETAMINOPHEN *IV* 1,000 MG in IV 1 EA IV ONE (13:37)
[2024-01-14] MEDS: FAMOTIDINE IV BAG 20 MG in IV 1 EA IV ONE (13:37)
[2024-01-14] MEDS: KETOROLAC 30 MG/ML 1ML VIAL IV ONE (14:17)
[2024-01-14] MEDS: MAALOX 30 ML SUSP *UDC PO ONE (14:17)
[2024-01-14 14:56] LABS: APPEARANCE, URINE HAZY (CLEAR); BACTERIA, URINE AUTO 1+ (NEGATIVE); BILIRUBIN, URINE AUTO NEGATIVE (NEGATIVE); BLOOD, URINE BLOOD 1+ (NEGATIVE); COLOR, URINE YELLOW (YELLOW); GLUCOSE, URINE (UA) AUTO NEGATIVE (NEGATIVE); KETONE, URINE AUTO NEGATIVE (NEGATIVE); LEUKOCYTE ESTERASE, URINE AUTO NEGATIVE (NEGATIVE); MUCUS, URINE SMALL (NEGATIVE); NITRITE, URINE AUTO NEGATIVE (NEGATIVE); PROTEIN, URINE AUTO NEGATIVE (NEGATIVE); RBC, URINE AUTO 2 /HPF (0-3); SQUAMOUS EPITHELIAL CELL UR AU 19 /HPF (0-6); UROBILINOGEN, URINE AUTO 0.2 mg/dL (0.0-2.0); WBC, URINE AUTO 3 /HPF (0-3)
[2024-01-14 15:30] LABS: SPECIFIC GRAVITY URINE AUTO >1.060 (1.002-1.035)
[2024-01-14] MEDS ORDERED: MAALSUS19 PO (15:36)
[2024-01-14] MEDS ORDERED: ONDA-282 PO (15:36)
[2024-01-14] MEDS ORDERED: PEPC1TAB5 PO (15:36)
[2024-01-14 15:40] VITALS: BP 113/78; TEMP 96.9; O2SAT 95
== END 2024-01-14 15:45 | disposition home or self-care (01) ==
LOC: M ED 08:08
DX: R10.13 Epigastric pain (principal); R11.10 Vomiting, unspecified; K20.90 Esophagitis, unspecified without bleeding; K21.9 Gastro-esophageal reflux disease without esophagitis; J45.909 Unspecified asthma, uncomplicated; F41.9 Anxiety disorder, unspecified; F43.10 Post-traumatic stress disorder, unspecified; F31.9 Bipolar disorder, unspecified; F20.9 Schizophrenia, unspecified; F10.10 Alcohol abuse, uncomplicated; R94.31 Abnormal electrocardiogram [ECG] [EKG]; Z87.891 Personal history of nicotine dependence; Z88.8 Allergy status to other drugs, medicaments and biological substances; Z91.030 Bee allergy status; Z79.1 Long term (current) use of non-steroidal anti-inflammatories (NSAID); Z79.2 Long term (current) use of antibiotics; Z79.899 Other long term (current) drug therapy
CPT/HCPCS: 71275; 74174; 80048; 80076; 81001; 82550; 82553; 83690; 84484; 85025; 86850; 86900; 86901; 93005; 96361; 96365; 96374; 96375; 99284; J0131; J1885; J2405; Q9967

== ENCOUNTER → 2024-03-08 | Outpatient (REF) | payer MEDICARE, MEDICAID ==
[~2024-03-08] MED LIST changes: +MAALSUS19 PO; +PEPC1TAB5 PO
[2024-03-08 17:21] LABS: GC DNA AMPLIFICATION NEGATIVE (NEGATIVE)
[2024-03-08 22:46] LABS: Trichomonas vaginalis (AMP) NOT DETECTED (NEGATIVE)
== END ==
LOC: M SFHCWAGY 14:57
PROVIDERS: ATTEND Nurse Practitioner Family
DX: Z11.3 Encounter for screening for infections with a predominantly sexual mode of transmission (principal); N73.9 Female pelvic inflammatory disease, unspecified

== ENCOUNTER 2024-04-27 13:28 | Day surgery (SDC) | payer MEDICARE, MEDICAID ==
[~2024-04-27] VITALS: Ht 172.7 cm; Wt 113.4 kg
[~2024-04-27 13:28] MED LIST changes: +BENZ1TAB5 PO; +BUPR1FIL PO; +CLON1TAB8 PO; +GABA-282 PO; +LATU20TA PO; +NYST-38 SS
[2024-04-27] MEDS: NS 1,000 ML IV ONE (13:58)
[2024-04-27 14:02] VITALS: TEMP 97.2
[2024-04-27] MEDS ORDERED: propofoL 200 MG/20 ML VIAL As Ordered ONE (14:23)
[2024-04-27] MEDS ORDERED: LIDOCAINE 2% 100MG/5ML SDV (FOR ANES.) As Ordered ONE (14:23)
[2024-04-27 15:15] VITALS: BP 115/71; O2SAT 96
== END 2024-04-27 15:29 | disposition home or self-care (01) ==
LOC: M OPP 13:28
PROVIDERS: ATTEND Internal Medicine Gastroenterology
DX: K20.90 Esophagitis, unspecified without bleeding (principal); K31.84 Gastroparesis; K91.89 Other postprocedural complications and disorders of digestive system; E03.9 Hypothyroidism, unspecified; K21.9 Gastro-esophageal reflux disease without esophagitis; M19.90 Unspecified osteoarthritis, unspecified site; F41.9 Anxiety disorder, unspecified; F32.A Depression, unspecified; G43.909 Migraine, unspecified, not intractable, without status migrainosus; F17.210 Nicotine dependence, cigarettes, uncomplicated; Z88.8 Allergy status to other drugs, medicaments and biological substances; Z91.030 Bee allergy status; Z91.048 Other nonmedicinal substance allergy status; Z79.890 Hormone replacement therapy; Z79.899 Other long term (current) drug therapy; Z98.84 Bariatric surgery status; Z80.8 Family history of malignant neoplasm of other organs or systems

== ENCOUNTER 2024-05-15 13:13 | Day surgery (SDC) | payer MEDICARE, MEDICAID ==
[~2024-05-15] VITALS: Ht 174 cm; Wt 113.0 kg
[~2024-05-15 13:13] MED LIST changes: +GABA-1172 PO; -GABA-282 PO; +LAMO200T3 PO; +LUMA10.5 PO; +NAPR-1405 PO; -NAPR500T6 PO; +NS 1,000 ML IV ONE
[2024-05-15] MEDS ORDERED: propofoL 200 MG/20 ML VIAL As Ordered ONE (13:52)
[2024-05-15 14:45] VITALS: BP 117/71; TEMP 96.3; O2SAT 97
== END 2024-05-15 15:45 | disposition home or self-care (01) ==
LOC: M OPP 13:13
PROVIDERS: ATTEND Internal Medicine Gastroenterology
DX: K21.00 Gastro-esophageal reflux disease with esophagitis, without bleeding (principal); K44.9 Diaphragmatic hernia without obstruction or gangrene; K31.84 Gastroparesis; K50.90 Crohn's disease, unspecified, without complications; Z98.0 Intestinal bypass and anastomosis status; Z90.49 Acquired absence of other specified parts of digestive tract; Z98.84 Bariatric surgery status; Z87.19 Personal history of other diseases of the digestive system; E06.3 Autoimmune thyroiditis; Z79.899 Other long term (current) drug therapy; Z79.890 Hormone replacement therapy; Z90.710 Acquired absence of both cervix and uterus; Z88.8 Allergy status to other drugs, medicaments and biological substances; Z91.030 Bee allergy status

== ENCOUNTER 2024-08-05 17:47 | Emergency (ER) | payer MEDICARE, MEDICAID ==
[~2024-08-05] VITALS: Ht 172.7 cm; Wt 110.2 kg
[~2024-08-05 17:47] MED LIST changes: -NS 1,000 ML IV ONE
[2024-08-05] MEDS: LORazepam 1 MG TAB PO STA (18:31)
[2024-08-05 18:53] VITALS: BP 123/78; TEMP 97.4; O2SAT 99
== END 2024-08-05 18:59 | disposition home or self-care (01) ==
LOC: M ED 17:47
DX: F20.9 Schizophrenia, unspecified (principal); F41.9 Anxiety disorder, unspecified; F31.9 Bipolar disorder, unspecified; F15.10 Other stimulant abuse, uncomplicated; Z91.030 Bee allergy status; Z88.8 Allergy status to other drugs, medicaments and biological substances; Z91.048 Other nonmedicinal substance allergy status; Z79.1 Long term (current) use of non-steroidal anti-inflammatories (NSAID); Z79.899 Other long term (current) drug therapy

== ENCOUNTER 2024-09-23 14:37 | Inpatient (IN) | payer MEDICARE, MEDICAID ==
[~2024-09-23] VITALS: Ht 172.7 cm; Wt 107.2 kg
[~2024-09-23 14:37] MED LIST changes: -BUPR1FIL PO; +BUPR1FIL SL
[2024-09-23] MEDS: LORazepam 2 MG TAB PO STA (15:30)
[2024-09-23 17:23] LABS: HEMATOCRIT 41.5 % (36.0-47.0); HEMOGLOBIN 14.2 g/dl (12.0-15.5); MEAN CORPUSCULAR HEMOGLOBIN 31.9 pg (27.0-33.0); MEAN CORPUSCULAR HGB CONC 34.2 g/dl (32.0-36.5); MEAN CORPUSCULAR VOLUME 93.3 fl (80.0-96.0); PLATELET COUNT, AUTOMATED 305 10^3/uL (150-450); RED BLOOD COUNT 4.45 10^6/uL (4.00-5.40); WHITE BLOOD COUNT 10.5 10^3/uL (4.0-10.0)
[2024-09-23 17:52] LABS: ETHYL ALCOHOL (ETHANOL) < 0.003 % (0.000-0.010)
[2024-09-23 17:53] LABS: SALICYLATE LEVEL < 3.0 MG/DL (<30)
[2024-09-23 17:54] LABS: ALBUMIN 3.7 G/DL (3.2-5.2); ALKALINE PHOSPHATASE 91 U/L (35-104); ALT/SGPT 29 U/L (7.0-40); AST/SGOT 23 U/L (<34); BILIRUBIN,DIRECT 0.2 MG/DL (<0.4); BILIRUBIN,TOTAL 0.8 MG/DL (0.3-1.2); BLOOD UREA NITROGEN 11 MG/DL (9-23); CALCIUM LEVEL 10.2 MG/DL (8.5-10.1); CARBON DIOXIDE LEVEL 26 MMOL/L (20-31); CHLORIDE LEVEL 102 MMOL/L (98-107); CREATININE FOR GFR 0.97 MG/DL (0.55-1.30); GLOMERULAR FILTRATION RATE > 60.0 (>58); GLUCOSE, FASTING 112 MG/DL (60-100); SODIUM LEVEL 139 MMOL/L (136-145); TOTAL PROTEIN 8.3 G/DL (5.7-8.2)
[2024-09-23 17:56] LABS: THYROID STIMULATING HORMONE 20.978 uIU/ML (0.55-4.78)
[2024-09-23 20:15] LABS: BENZODIAZEPINES URINE NEGATIVE (NEGATIVE)
[2024-09-23 20:16] LABS: BARBITURATES URINE NEGATIVE (NEGATIVE); CANNABINOIDS URINE NEGATIVE (NEGATIVE); COCAINE METABOLITE URINE NEGATIVE (NEGATIVE); METHADONE URINE NEGATIVE (NEGATIVE); OPIATES URINE NEGATIVE (NEGATIVE); PHENCYCLIDINE URINE NEGATIVE (NEGATIVE)
[2024-09-23] MEDS: LORazepam 2 MG TAB PO PRN (20:25)
[2024-09-23 20:26] LABS: AMPHETAMINES LEVEL URINE POSITIVE (NEGATIVE)
[2024-09-23] MEDS ORDERED: MAALOX 30 ML SUSP *UDC PO PRN (22:00)
[2024-09-23] MEDS ORDERED: MOM 30ML SUSPENSION UDC PO PRN (22:00)
[2024-09-23] MEDS ORDERED: IBUPROFEN 400MG TAB PO PRN (22:00)
[2024-09-23] MEDS ORDERED: LORazepam 2 MG TAB PO PRN (22:20)
[2024-09-23] MEDS ORDERED: METO1TAB32 PO (22:45)
[2024-09-23] MEDS ORDERED: PALI1TAB2 PO (22:45)
[2024-09-23 22:48] VITALS: BP 111/70; TEMP 97.6; O2SAT 98
[2024-09-23] MEDS ORDERED: PANT40TA29 PO (22:48)
[2024-09-23] MEDS ORDERED: PANT20TA6 PO (22:48)
[2024-09-23 22:49] VITALS: BP 117/74
[2024-09-23] MEDS ORDERED: HOME MED LIST COMPLETE! XX SCH (22:50)
[2024-09-24 06:37] VITALS: BP 120/77; TEMP 96.8; O2SAT 99
[2024-09-24] MEDS: MULTIVITAMINS/MINERALS THERAP 1 TAB PO SCH (08:38)
[2024-09-24] MEDS: OLANZapine ORAL DISINTEGRATING TAB 5MG PO PRN (08:38)
[2024-09-24] MEDS: THIAMINE 100 MG TAB PO SCH (08:38)
[2024-09-24] MEDS: FOLIC ACID 1MG TAB PO SCH (08:38)
[2024-09-24] MEDS: diphenhydrAMINE 25MG CAP PO PRN (12:50)
[2024-09-24 14:00] VITALS: BP 116/55; TEMP 96.9; O2SAT 99
[2024-09-24] MEDS ORDERED: BUPRENORPHINE/NALOXONE 8-2MG SUBLINGUAL TABLET(SUBOXONE) SL SCH (16:00)
[2024-09-24] MEDS: METOPROLOL SUCC *XL* 25MG TAB (TopROL *XL*) PO SCH (16:50)
[2024-09-24] MEDS: PALIPERIDONE 3MG ER TAB (INVEGA) PO SCH (16:50)
[2024-09-24] MEDS: GABAPENTIN 300 MG CAP PO SCH (16:50)
[2024-09-24] MEDS: FAMOTIDINE 20 MG TAB PO SCH (16:50)
[2024-09-24] MEDS: BUPRENORPHINE/NALOXONE 8-2MG SUBLINGUAL TABLET(SUBOXONE) SL SCH (17:21)
[2024-09-24] MEDS: PANTOPRAZOLE 20 MG TAB PO SCH (21:02)
[2024-09-24] MEDS: traZODone 50 MG TAB PO PRN (21:02)
[2024-09-24] MEDS: PRAZOSIN 1 MG CAP PO SCH (21:02)
[2024-09-24 21:55] VITALS: BP 102/65
[2024-09-25] VITALS (7 sets, daily range): BP systolic 80–121; BP diastolic 56–86; TEMP 96.8–98.3; O2SAT 96–97
[2024-09-25] MEDS: LEVOTHYROXINE 50MCG TABLET (0.05MG) PO SCH (06:10)
[2024-09-25] MEDS: ACETAMINOPHEN 325 MG TAB PO PRN (07:39)
[2024-09-25] MEDS: NICOTINE 21MG/24HR 1 EA TRANSDERMAL TD SCH (09:57)
[2024-09-25] MEDS ORDERED: OLANZapine ORAL DISINTEGRATING TAB 5MG PO PRN (10:25)
[2024-09-25] MEDS: OLANZapine ORAL DISINTEGRATING TAB 5MG PO ONE (10:55)
[2024-09-25] MEDS: QUEtiapine FUMARATE 25 MG TAB PO PRN (14:28)
[2024-09-25] MEDS: QUEtiapine FUMARATE 50MG TAB PO SCH (21:21)
[2024-09-26 06:33] VITALS: BP 113/57
[2024-09-26 14:30] VITALS: BP_SYST 117; BP_SYST 125; BP_DIAS 78; BP_DIAS 83
[2024-09-26 15:27] VITALS: BP 125/78; TEMP 97.6; O2SAT 99
[2024-09-26] MEDS: PALIPERIDONE PAL 234MG/1.5ML INJ (INVEGA)(FREE PSY INPT ONLY) IM ONE (17:10)
[2024-09-26] MEDS: hydrOXYzine 50 MG TAB PO PRN (20:24)
[2024-09-27 06:23] VITALS: BP 117/68; TEMP 97.5; O2SAT 96
[2024-09-27] MEDS: CelecoXIB (CeleBREX) 100 MG CAP PO SCH (14:57)
[2024-09-27 15:15] VITALS: BP 121/77; TEMP 98.6; O2SAT 96
[2024-09-28 06:28] VITALS: BP 112/61; TEMP 96.6; O2SAT 95
[2024-09-28 14:25] LABS: BLOOD UREA NITROGEN 12 MG/DL (9-23); CALCIUM LEVEL 9.1 MG/DL (8.5-10.1); CARBON DIOXIDE LEVEL 23 MMOL/L (20-31); CHLORIDE LEVEL 108 MMOL/L (98-107); CREATININE FOR GFR 0.87 MG/DL (0.55-1.30); GLOMERULAR FILTRATION RATE > 60.0 (>58); GLUCOSE, FASTING 147 MG/DL (60-100); POTASSIUM SERUM 4.2 MMOL/L (3.5-5.1); SODIUM LEVEL 141 MMOL/L (136-145)
[2024-09-28 15:14] LABS: CLOSTRIDIUM DIFFICILE PCR NEGATIVE (NEGATIVE)
[2024-09-28] MEDS ORDERED: LOPERAMIDE 2 MG CAPLET PO PRN (15:15)
[2024-09-28 16:35] VITALS: BP 117/69; TEMP 97.5; O2SAT 98
[2024-09-29 06:38] VITALS: BP 94/54; TEMP 97.6; O2SAT 96
[2024-09-29 09:18] VITALS: BP 128/58
[2024-09-29 14:49] VITALS: BP 107/69; TEMP 97.7; O2SAT 96
[2024-09-29] MEDS: GABAPENTIN 300 MG CAP PO SCH (15:15)
[2024-09-30 06:42] VITALS: BP 96/53; TEMP 97.2; O2SAT 98
[2024-09-30] MEDS: hydrOXYzine 50 MG TAB PO PRN (08:58)
[2024-09-30 15:58] VITALS: BP 110/62; TEMP 98.2; O2SAT 98
[2024-09-30] MEDS: FUROSEMIDE 20 MG TAB PO SCH (16:12)
[2024-10-01 06:29] VITALS: BP 137/81; TEMP 97.9; O2SAT 96
[2024-10-01] MEDS: PALIPERIDONE PAL 156MG/1ML INJ(INVEGA)(FREE PSY INPT ONLY) IM ONE (15:27)
[2024-10-01 15:40] VITALS: BP 109/65; TEMP 97.1; O2SAT 99
[2024-10-01] MEDS ORDERED: PRAZ1CAP PO (15:40)
[2024-10-01] MEDS ORDERED: FURO20TA2 PO (15:40)
[2024-10-01] MEDS ORDERED: HYDR50TA70 PO (15:40)
[2024-10-01] MEDS ORDERED: QUET50TA4 PO (15:40)
[2024-10-01] MEDS ORDERED: GABA-1172 PO (15:40)
[2024-10-02 06:21] VITALS: BP 115/70; TEMP 97.5; O2SAT 95
[2024-10-02 08:29] VITALS: BP 146/81
[2024-10-02 08:32] VITALS: BP 146/81
== END 2024-10-02 10:13 | disposition home or self-care (01) | DRG 885 ==
LOC: M ED 14:37 → M ED INP 22:08 → M PSY 22:41
PROVIDERS: ADMIT Psychiatry & Neurology Neurology; ATTEND Psychiatry & Neurology Psychiatry
DX: F20.9 Schizophrenia, unspecified (principal); E03.9 Hypothyroidism, unspecified; F41.9 Anxiety disorder, unspecified; F60.3 Borderline personality disorder; Z91.51 Personal history of suicidal behavior; Z79.899 Other long term (current) drug therapy; Z88.8 Allergy status to other drugs, medicaments and biological substances; Z91.030 Bee allergy status; Z91.048 Other nonmedicinal substance allergy status; Z98.84 Bariatric surgery status; Z79.890 Hormone replacement therapy

== ENCOUNTER 2025-02-25 22:54 | Emergency (ER) | payer MEDICARE, MEDICAID ==
[~2025-02-25] VITALS: Ht 172.7 cm; Wt 109.1 kg
[~2025-02-25 22:54] MED LIST changes: -AMBI5TAB PO; +FURO20TA2 PO; +LAMO-18 PO; -LAMO25TA4 PO; +LIDO1ADH93 TOP; -LIDO5DIS41 TOP; +METO1TAB32 PO; +PALI1TAB2 PO; +PANT20TA6 PO; +QUET50TA4 PO; +ZOLP-532 PO; +[UNRECOGNIZED DRUG - CODE] PO; -[UNRECOGNIZED DRUG - CODE] PO
[2025-02-25 23:17] VITALS: BP 150/100; TEMP 97.4; O2SAT 97
== END 2025-02-25 23:51 | disposition left against medical advice (07) ==
LOC: M ED 22:54
DX: Z53.21 Procedure and treatment not carried out due to patient leaving prior to being seen by health care provider (principal)

== ENCOUNTER 2025-06-08 18:04 | Emergency (ER) | payer MEDICARE, MEDICAID ==
[~2025-06-08] VITALS: Ht 172.7 cm; Wt 120.5 kg
[~2025-06-08 18:04] MED LIST changes: +MORP100T53 PO; -MORP1TAB20 PO; -MORP1TAB22 PO; +MORP30TA3 PO; +ZOLP10TA11 PO; -ZOLP10TA2 PO; -ZOLP5TAB PO; +ZOLP5TAB9 PO
[2025-06-08] MEDS ORDERED: FLUO-365 (18:22)
[2025-06-08] MEDS ORDERED: HYDR-3363 (18:22)
[2025-06-08] MEDS ORDERED: LUMA21CA (18:22)
[2025-06-08] MEDS ORDERED: ACET-683 PO (18:22)
[2025-06-08] MEDS ORDERED: NAPR220C14 PO (18:22)
[2025-06-08] MEDS ORDERED: INVE234I (18:22)
[2025-06-08] MEDS ORDERED: excedrin (18:22)
[2025-06-08] MEDS ORDERED: LIDOCAINE 2% 5 ML JELLY UROJET TOP ONE (21:20)
[2025-06-08] MEDS: LIDOCAINE 5% PATCH TD ONE (21:30)
[2025-06-08] MEDS: KETOROLAC 30 MG/ML 1 ML VIAL IV ONE (21:59)
[2025-06-08] MEDS: METHOCARBAMOL 1,000 MG/10 ML VIAL IV ONE (22:01)
[2025-06-08] MEDS ORDERED: MEDR4PAK PO (23:24)
[2025-06-08] MEDS ORDERED: METH-1164 PO (23:24)
[2025-06-08 23:30] VITALS: BP 130/81; TEMP 96.9; O2SAT 95
== END 2025-06-08 23:40 | disposition home or self-care (01) ==
LOC: EDBD 18:04 → M ED 18:04
DX: S39.012A Strain of muscle, fascia and tendon of lower back, initial encounter (principal); Y92.9 Unspecified place or not applicable; Y93.9 Activity, unspecified; Y99.9 Unspecified external cause status; W01.190A Fall on same level from slipping, tripping and stumbling with subsequent striking against furniture, initial encounter; E11.9 Type 2 diabetes mellitus without complications; E05.90 Thyrotoxicosis, unspecified without thyrotoxic crisis or storm; F17.210 Nicotine dependence, cigarettes, uncomplicated; Z88.8 Allergy status to other drugs, medicaments and biological substances; Z91.030 Bee allergy status; Z79.1 Long term (current) use of non-steroidal anti-inflammatories (NSAID); Z79.899 Other long term (current) drug therapy
CPT/HCPCS: 72131; 96374; 96375; 99284; J1885; J2800; J2919; J3360